=== PATIENT | male | born 1970 | race Caucasian/White ===

== ENCOUNTER 2019-08-08 11:38 | Emergency (ER) | payer MEDICAID, SELFPAY ==
[2019-08-08 11:40] VITALS: BP 194/120; PULSE 76; RESP 16; TEMP 36.7; O2SAT 95; BMI 44.1
--- NOTE | 2019-08-08 11:51 | ED_ITS ---
Entered by Sean Centeno, acting as scribe for Jerry Bradford DO HPI - SOB/Dyspnea General: Chief Complaint: Shortness of Breath/Dyspnea Stated Complaint: water retention Time Seen by Provider: 08/08/19 12:05 History of Present Illness: HPI Narrative: 49 yo male presents with shortness of breath. Pt states that he noticed that he is retaining fluid. pt states that he has CHF. Pt states that he has been short of breath for a week. Pt states that he has fluid retaining in his scrotum. Pt denies chest pain. Pt states that he called his PCPs office and she isn't there on Fridays, he came here instead. MD elicited complaint: shortness of breath Pertinent past history: congestive heart failure Onset (ago): week(s) (1 week) Severity: moderate Exacerbating factors: exertion Known history of: congestive heart failure Associated symptoms: Deny abdominal pain, chest pain, dizziness, extremity pain, fever(s), nausea, orthopnea, palpitations, polydipsia, polyuria, syncope or vomiting Review of Systems Const: Denies: fever, chills, body aches, fatigue, malaise or night sweats Eyes: Denies: change in vision or blurry vision ENMT: Denies: throat pain, oral sores/lesions, dental pain, nasal discharge or nasal congestion Card: Reports: edema and shortness of breath on exertion; Denies: chest pain, palpitations, irregular heart rhythm, syncope, shortness of breath when lying down or leg pain with exertion Resp: Denies: shortness of breath, productive cough, non-productive cough or wheezing GI: Denies: abdominal pain, nausea, vomiting, vomiting blood, coffee grounds in vomit, difficulty swallowing, heartburn/indigestion, diarrhea, constipation, cramping, blood in stool or black tarry stool : Reports: scrotal swelling; Denies: flank pain, difficulty urinating, painful urination, urinary frequency, urinary urgency, urinary incontinence or blood in urine Musc: Denies: neck pain, back pain, extremity pain, extremity swelling, joint pain or joint swelling Skin/Breast: Denies: rash, itching or redness Neuro: Denies: headache, numbness in extremities, weakness in extremities, changes in sensation, lack of coordination, difficulty walking, frequent falls, dizziness, vertigo or confusion Psych: Denies: anxiety, depression, loss of interest, visual hallucinations, auditory hallucinations, suicidal ideation or homicidal ideation Endo: Denies: excessive urination, excessive thirst, tired all the time or cold intolerance Ramy/Lymph: Denies: easy bruising, easy bleeding, petechiae, enlarged lymph nodes or tender lymph nodes PFSH ED PFSH: Statuses (acute, chronic, etc) shown below reflect problem list status as previously entered and may not be historically accurate Medical History Cancer (Acute) Cataract (lens) fragments in eye following cataract surgery, bilateral (Acute) Congestive cardiac failure (Acute) Diabetes (Acute) Neuropathy (Acute) Surgical History H/O partial nephrectomy (Acute) bilateral Family History Father Diabetes Mother Diabetes Grandfather Diabetes Cancer Other Hyperlipidemia Social History Smoking and tobacco status: never smoked Alcohol intake: current Alcohol intake frequency: holidays/special occasions only Physical Exam Const: COMMON NORMALS: oriented x3 and alert GENERAL APPEARANCE: cooperative, comfortable, well kempt and well developed NUTRITIONAL APPEARANCE: obese ORIENTATION/CONSCIOUSNESS: Yes awake, Yes oriented to person and Yes oriented to place HENMT: COMMON NORMALS: normocephalic, head/scalp atraumatic, EAC's normal, TM's normal bilaterally, external nose normal, moist oral mucous membranes and oropharynx normal HEAD & SCALP: normocephalic and atraumatic NOSE: external nose normal EXTERNAL AUDITORY CANAL: EAC's normal TYMPANIC MEMBRANE: TM's normal bilaterally MOUTH: oral and palatal mucosa normal, lip normal and tongue normal THROAT: posterior oropharynx normal and tonsils normal Eye: COMMON NORMALS: PERRL, EOMs intact bilaterally, conjunctivae normal and no scleral icterus CONJUNCTIVA: Yes conjunctivae normal PUPIL: Yes PERRL Neck/C-Spine: COMMON NORMALS: full ROM, no lymphadenopathy, supple, no meningeal signs and thyroid normal THYROID: thyroid normal and asymmetrical Lymph: LYMPHATIC: no lymphadenopathy noted Resp: COMMON NORMALS: normal respiratory effort, no retractions, no use of accessory muscles and clear to auscultation bilaterally AUSCULTATION: clear to auscultation bilaterally Cardio: COMMON NORMALS: regular rate and regular rhythm RATE: regular rate RHYTHM: regular rhythm HEART SOUNDS: no murmurs GI: COMMON NORMALS: normal to inspection, nondistended, normoactive bowel sounds, soft to palpation and no hepatosplenomegaly PALPATION: Yes soft and Yes no hepatosplenomegaly : COMMON NORMALS: Yes no CVA tenderness BLADDER/KIDNEY EXAM: Yes no CVA tenderness Back/Pelvis: COMMON NORMALS: no CVA tenderness LUMBAR SPINE/LOWER BACK: Yes normal to inspection Extremity: COMMON NORMALS: no clubbing, cyanosis or edema and no calf tenderness GENERAL: Yes edema (bilateral, mild anasarca of the lower portion of the panus) Neuro: COMMON NORMALS: oriented x3 SENSORIUM/ORIENTATION: Yes alert, Yes oriented to person and Yes oriented to place MENINGEAL SIGNS: Yes no meningeal signs Psych: APPEARANCE: Yes well kempt Skin: COMMON NORMALS: no rashes or lesions noted and skin turgor normal GENERAL SKIN EXAM: no rashes or lesions noted and turgor normal Course ED course: She is having no chest pain is not really not having any orthopnea either he does have pretty significant lower extremity edema extending up to the pannus. He is on diuretics the chest x-ray is not showing increased pulmonary vasculature. We will have him double up on his diuretics and his potassium for the next 3 days follow-up with his primary care doctor if worsens or change return Vital Signs: Vital signs: Vital Signs Temperature 98.1 F 08/08/19 11:40 Pulse Rate 77 08/08/19 14:11 Respiratory Rate 17 08/08/19 14:11 Blood Pressure 157/89 08/08/19 14:11 Pulse Oximetry 95 08/08/19 14:11 MDM - SOB/Dyspnea Lab Data: Labs: Lab Results 08/08/19 08/08/19 Range/Units 12:00 12:00 WBC 8.3 (4.0-10.0) 10^3/ uL RBC 5.18 (4.1-5.3) 10^6/u L Hgb 14.0 (11.7-16.6) g/dL Hct 43.5 (42.0-52.0) % MCV 84.0 (80-94) fL MCH 27.0 L (28.0-34.0) pg MCHC 32.2 (30.0-36.0) g/dL RDW 12.3 (12.1-15.1) % Plt Count 251 (130-400) 10^3/c mm MPV 11.6 H (7.4-10.4) fL Neut % (Auto) 69.8 % Lymph % (Auto) 18.3 % Elbert % (Auto) 7.1 % Eos % (Auto) 3.8 % Baso % (Auto) 0.5 % Neut # (Auto) 5.8 (1.8-7.7) 10^3/u L Lymph # (Auto) 1.5 (0.8-4.8) 10^3/u L Elbert # (Auto) 0.6 (0.2-0.9) 10^3/u L Eos # (Auto) 0.3 (0.0-0.8) 10^3/u L Baso # (Auto) 0.0 (0.0-0.1) 10^3/u L Nucleated RBC % (a uto) 0 % Nucleated RBCs # 0.0 /100WBC Sodium 133 L (136-145) mmol/L Potassium 3.9 (3.5-5.1) mmol/L Chloride 95 L (98-107) mmol/L Carbon Dioxide 29 (22-29) mmol/L Anion Gap 12.9 (5-19) BUN 46 H (6-20) mg/dL Creatinine 1.6 H (0.7-1.2) mg/dL GFR Calculation 46.2 L (90-130) mL/min Glucose 288 H (74-109) mg/dL Calcium 9.0 (8.6-10.0) mg/Dl Total Bilirubin 0.2 (0.15-1.2) mg/dL AST 27 (0-40) U/L ALT 29 (0-41) U/L Alkaline Phosphata se 61 (40-130) IU/L Total Protein 6.1 L (6.6-8.7) g/dL Albumin 2.8 L (3.5-5.2) g/dL Globulin 3.3 (1.3-4.6) g/dL Imaging Data^: CXR: Radiologist's impression: Patient: Akil Velasco MR#: [id number] : 1970 Acct:[id number] Age/Sex: 49 / M ADM Date: 08/08/19 Loc: ER Attending Dr: Ordering Physician: Jerry Bradford DO Date of Service: 08/08/19 Procedure(s): XR chest 1V portable [id number] Accession Number(s): [id number] Report Number: [id number] WS: [id number] CHEST XRAY TECHNIQUE: Portable chest. CLINICAL INFORMATION: dyspnea COMPARISON: FINDINGS: Shallow inspiration. Heart: Cardiomegaly. Lungs: Lungs are clear. No consolidation or pleural effusion. Bones: Normal visualized bony structures. XR/XR chest 1V portable [id number] IMPRESSION: Cardiomegaly. Shallow inspiration. No acute pulmonary infiltrates. Dictated By: Osmel Ashraf MD Signed By: Osmel Ashraf MD Signed Date/Time:08/08/191250 DD/ 125 Discharge Plan Discharge Patient Disposition: Home, Self-Care Clinical Impression: Edema Qualifiers: Edema type: generalized Qualified Code(s): R60.1 - Generalized edema Condition: Stable Prescriptions: No Action Lantus Solostar U-100 Insulin 100 unit/mL (3 mL) insulin pen 50 unit SUBCUT ONCE RF: 0 carvedilol 25 mg tablet 25 mg PO BID RF: 0 Novolog PenFill U-100 Insulin 100 unit/mL cartridge 5 unit SUBCUT TID PRN (Reason: Hyperglycemia) RF: 0 losartan 100 mg tablet 100 mg PO ONCE RF: 0 citalopram [Celexa] 40 mg tablet 40 mg PO ONCE RF: 0 gabapentin 600 mg tablet 600 mg PO BID RF: 0 atorvastatin 80 mg tablet 80 mg PO ONCE RF: 0 furosemide 40 mg tablet 40 mg PO BID RF: 0 cephalexin 500 mg capsule 500 mg PO BID 7 Days Qty: 14 RF: 0 aspirin 81 mg Tablet,Delayed Release (Dr/Ec) 81 mg PO DAILY RF: 0 multivitamin Capsule 1 cap PO DAILY RF: 0 Referrals: Sulma Wetzel MD [Primary Care Provider] - 4-7 days Discharge Diet: Low Salt Discharge Activity: Increase activity as tolerated Activity Restrictions/Additional Instructions: Increase your Lasix to 80 mg twice daily for the next 3 days. You should also double your potassium supplement for the next 3 days. After 3 days resume previously prescribed doses and follow-up with Dr. Hernández. Discharge Date/Time: 08/08/19 14:17 Coding Level of Care Code ED Intelligence Support Officer for Chg Fwd Exam Problem Focused The documentation recorded by the Jacobo guillory Kialy, accurately reflects the service I personally performed and the decisions made by , Jerry Bradford, Aug 08, 2019 11:38
--- NOTE | 2019-08-08 12:23 | XR_ITS ---
WS: [id number] CHEST XRAY TECHNIQUE: Portable chest. CLINICAL INFORMATION: dyspnea COMPARISON: 019 FINDINGS: Shallow inspiration. Heart: Cardiomegaly. Lungs: Lungs are clear. No consolidation or pleural effusion. Bones: Normal visualized bony structures. XR/XR chest 1V portable [id number] IMPRESSION: Cardiomegaly. Shallow inspiration. No acute pulmonary infiltrates.
[2019-08-08 12:38] LABS: Basophils % 0.5 %; Eosinophils # 0.3 10^3/uL (0.0-0.8); Eosinophils % 3.8 %; Hematocrit 43.5 % (42.0-52.0); Lymphocytes # 1.5 10^3/uL (0.8-4.8); Lymphocytes % 18.3 %; Mean Corpuscular HGB Conc 32.2 g/dL (30.0-36.0); Mean Platelet Volume 11.6 fL (7.4-10.4); Monocytes # 0.6 10^3/uL (0.2-0.9); Monocytes % 7.1 %; Neutrophils # 5.8 10^3/uL (1.8-7.7); Neutrophils % 69.8 %; Nucleated Red Blood Cells % 0 %; Platelet Count 251 10^3/cmm (130-400); Red Blood Count 5.18 10^6/uL (4.1-5.3); Red Cell Distribution Width 12.3 % (12.1-15.1); White Blood Count 8.3 10^3/uL (4.0-10.0)
[2019-08-08] MEDS: FUROsemide 10 mg/mL SDV 10mL 60 MG IVP (12:39)
[2019-08-08] MEDS: ipratropium-albuterol 3 mL Neb INHALATION (12:40)
[2019-08-08 12:43] VITALS: PULSE 78; RESP 16; O2SAT 91
[2019-08-08 12:44] LABS: Alanine Aminotransferase 29 U/L (0-41); Albumin Level 2.8 g/dL (3.5-5.2); Alkaline Phosphatase 61 IU/L (40-130); Anion Gap 12.9 (5-19); Aspartate Amino Transferase 27 U/L (0-40); Blood Urea Nitrogen 46 mg/dL (6-20); Carbon Dioxide 29 mmol/L (22-29); Chloride 95 mmol/L (98-107); Globulin 3.3 g/dL (1.3-4.6); Glomerular Filtration Rate 46.2 mL/min (90-130); Glucose 288 mg/dL (74-109); Potassium 3.9 mmol/L (3.5-5.1); Sodium 133 mmol/L (136-145); Total Bilirubin 0.2 mg/dL (0.15-1.2); Total Protein 6.1 g/dL (6.6-8.7)
[2019-08-08 12:45] VITALS: PULSE 81
[2019-08-08 14:11] VITALS: BP 157/89; PULSE 77; RESP 17; O2SAT 95
== END 2019-08-08 14:17 | disposition home or self-care (01) ==
PROVIDERS: Emergency Provider Family Medicine; PCP Internal Medicine
DX: R60.1 Generalized edema (principal); Z79.4 Long term (current) use of insulin; Z79.82 Long term (current) use of aspirin; E11.40 Type 2 diabetes mellitus with diabetic neuropathy, unspecified; Z90.5 Acquired absence of kidney; I50.9 Heart failure, unspecified
CPT/HCPCS: 71045; 80053; 85025; 94640; 96374; 96375; 99282; J1940

== ENCOUNTER 2019-08-11 11:26 | Emergency (ER) | payer MEDICAID, SELFPAY | END 2019-08-11 16:24 | disposition home or self-care (01) | LOC: ER 11-13 12:55 | PROVIDERS: Emergency Provider Family Medicine; Family Provider Internal Medicine; PCP Internal Medicine | DX: I50.9 Heart failure, unspecified (principal); R60.1 Generalized edema; Z79.4 Long term (current) use of insulin; Z79.82 Long term (current) use of aspirin; E11.40 Type 2 diabetes mellitus with diabetic neuropathy, unspecified; Z90.5 Acquired absence of kidney; Z23 Encounter for immunization | CPT/HCPCS: 12345; 36415; 36416; 51702; 71046; 76770; 76857; 80048; 80053; 80061; 80306; 81003; 82009; 82436; 82570; 82962; 83036; 83735; 83880; 84133; 84300; 84484; 85025; 87070; 87086; 87205; 90732; 93005; 93306; 94664; 96372; 96374; 96375; 99284; 99285; J1644; J1815; J1940; J2270 ==

== ENCOUNTER 2019-08-11 11:26 | Inpatient (IN) | payer MEDICAID, SELFPAY ==
[2019-08-11] VITALS (11 sets, daily range): BP systolic 178–215; BP diastolic 85–120; PULSE 76–85; RESP 18–21; TEMP 36.4–36.7; O2SAT 79–98; BMI 45.8
--- NOTE | 2019-08-11 11:56 | ED_ITS ---
Entered by Claudine Robles, acting as scribe for Colton Waller MD, [facility] [place] - General Adult General: Chief complaint: General Medical Stated complaint: Chest pain Time Seen by Provider: 08/11/19 11:54 Source: patient Mode of arrival: ambulatory Limitations: no limitations History of Present Illness: HPI narrative: 49 yo m came to the er pov for chest discomfort. Onset was 2 weeks ago. Pt states that he also has renal issues, Pt states that he has been retaining fluid. Pt said that there has been alot of swelling. Pt states that he has doubled meds and has not been able to urinate as much as he should. Patient with a history of CHF and is on 40 mg of lasix and 2 mg of bumex daily. About 4 days ago he was seen in the ED and advised to double the dose of his diuretics but that has not helped with the swelling. He has generalized swelling that is worsening. Also has shortness of breath and dyspnea on exertion. He may have some orthopnea. complaint: chest discomfort Onset (ago): week(s) (2 weeks ago) Location: upper extremity and lower extremity Radiation: non-radiation Severity: mild Pain Consistency: intermittent Relieving factors: none Exacerbating factors: none Associated symptoms: Reports dyspnea Treatments prior to arrival: none Review of Systems General: Reports: 10 or more systems reviewed and unremarkable except in HPI and below Card: Reports: swelling of feet/ankles and shortness of breath on exertion Resp: Reports: shortness of breath : Reports: other (Scrotal swelling) PFS ED PFSH: Statuses (acute, chronic, etc) shown below reflect problem list status as previously entered and may not be historically accurate Medical History Cancer (Acute) Cataract (lens) fragments in eye following cataract surgery, bilateral (Acute) Congestive cardiac failure (Acute) Diabetes (Acute) Neuropathy (Acute) Surgical History H/O partial nephrectomy (Acute) bilateral Family History Father Diabetes Mother Diabetes Grandfather Diabetes Cancer Other Hyperlipidemia Social History Smoking and tobacco status: never smoked Alcohol intake: current Alcohol intake frequency: holidays/special occasions only Physical Exam Const: COMMON NORMALS: no apparent distress, average body habitus, oriented x3, no limitations, healthy appearing, alert and well nourished HENMT: COMMON NORMALS: external ears normal EXTERNAL EAR: Yes external ears normal Eye: COMMON NORMALS: PERRL, EOMs intact bilaterally, conjunctivae normal and no scleral icterus CONJUNCTIVA: Yes conjunctivae normal PUPIL: Yes PERRL Neck/C-Spine: COMMON NORMALS: full ROM, supple, no meningeal signs, no JVD and no carotid bruits Chest: COMMONS NORMALS: inspection of chest normal and palpation of chest normal Resp: COMMON NORMALS: normal respiratory effort, no retractions and no use of accessory muscles AUSCULTATION: rales bilateral and localized (bases) Cardio: COMMON NORMALS: no JVD, regular rate, regular rhythm, S1 normal heart sound, S2 normal heart sound, no gallops, no clicks, no murmurs, no rub and peripheral pulses 2+ throughout RATE: regular rate RHYTHM: regular rhythm HEART SOUNDS: S1 normal and S2 normal PERIPHERAL PULSES: pulses 2+ throughout GI: COMMON NORMALS: normal to inspection, nondistended, normoactive bowel sounds, soft to palpation, non-tender, no hepatosplenomegaly, no masses and no bruits PALPATION: Yes soft and Yes no hepatosplenomegaly : COMMON NORMALS: Yes no CVA tenderness BLADDER/KIDNEY EXAM: Yes no CVA tenderness Back/Pelvis: COMMON NORMALS: no CVA tenderness Extremity: COMMON NORMALS: full ROM, normal capillary refill, no joint enlargement and no calf tenderness GENERAL: Yes edema (3+ bilateral legs and ankles) LEFT LOWER EXTREMITY: Yes lower leg OTHER: swelling Neuro: COMMON NORMALS: oriented x3 SENSORIUM/ORIENTATION: Yes alert MENINGEAL SIGNS: Yes no meningeal signs Skin: COMMON NORMALS: no rashes or lesions noted, no wounds, skin turgor normal, no jaundice, no petechiae and no mottling GENERAL SKIN EXAM: no rashes or lesions noted and turgor normal Course Consultations: Consultation #1: Dr. Bonner. He kindly accepted the patient to his service. Time: 15:45 Vital Signs: Vital signs: Vital Signs Temperature 97.6 F 08/11/19 11:32 Pulse Rate 85 08/11/19 11:32 Respiratory Rate 18 08/11/19 11:32 Blood Pressure 215/120 08/11/19 11:32 Pulse Oximetry 93 08/11/19 11:32 MDM - General Adult MDM Narrative: Medical decision making narrative: 49-year-old gentleman with a history of congestive heart failure who has worsening edema, really anasarca, and shortness of breath. He was seen in this facility 3 to 4 days ago for the same thing but he has not shown much improvement. In fact he has worsening symptoms according to the patient. Last echocardiogram done was at least 1 year ago according to the patient. The patient will be admitted overnight for intravenous diuretics. The patient voiced understanding and is in agreement with the plan. Lab Data: Labs: Lab Results 08/11/19 08/11/19 08/11/19 Range/Units 12:15 12:15 12:15 WBC 8.0 (4.0-10.0) 10^3/ uL RBC 5.08 (4.1-5.3) 10^6/u L Hgb 13.8 (11.7-16.6) g/dL Hct 43.0 (42.0-52.0) % MCV 84.6 (80-94) fL MCH 27.2 L (28.0-34.0) pg MCHC 32.1 (30.0-36.0) g/dL RDW 12.4 (12.1-15.1) % Plt Count 246 (130-400) 10^3/c mm MPV 11.2 H (7.4-10.4) fL Neut % (Auto) 70.3 % Lymph % (Auto) 18.2 % Hart % (Auto) 6.0 % Eos % (Auto) 4.1 % Baso % (Auto) 0.8 % Neut # (Auto) 5.6 (1.8-7.7) 10^3/u L Lymph # (Auto) 1.5 (0.8-4.8) 10^3/u L Hart # (Auto) 0.5 (0.2-0.9) 10^3/u L Eos # (Auto) 0.3 (0.0-0.8) 10^3/u L Baso # (Auto) 0.1 (0.0-0.1) 10^3/u L Nucleated RBC % (a uto) 0 % Nucleated RBCs # 0.0 /100WBC Sodium 132 L (136-145) mmol/L Potassium 4.3 (3.5-5.1) mmol/L Chloride 90 L (98-107) mmol/L Carbon Dioxide 31 H (22-29) mmol/L Anion Gap 15.3 (5-19) BUN 48 H (6-20) mg/dL Creatinine 1.9 H (0.7-1.2) mg/dL GFR Calculation 37.9 L (90-130) mL/min Glucose 570 H* (74-109) mg/dL Calcium 9.2 (8.6-10.0) mg/Dl Total Bilirubin 0.2 (0.15-1.2) mg/dL AST 29 (0-40) U/L ALT 33 (0-41) U/L Alkaline Phosphata se 71 (40-130) IU/L Troponin T Baselin e 108 H* (0-15) ng/mL Troponin T 120 Min alutiiq (0-15) ng/mL Delta Troponin T (0-10) ABS# NT-Pro-B Natriuret Pep 3431 H (0-125) pg/mL Total Protein 6.4 L (6.6-8.7) g/dL Albumin 2.9 L (3.5-5.2) g/dL Globulin 3.5 (1.3-4.6) g/dL Urine Color (Yellow) Urine Appearance (CLEAR) Urine pH (5-7) Ur Specific Gravit y (1.005-1.030) Urine Protein (Negative) Urine Glucose (UA) (Normal) Urine Ketones (Negative) Urine Occult Blood (Negative) Urine Nitrate (Negative) Urine Bilirubin (NEGATIVE) Urine Urobilinogen (Negative) mg/dL Ur Leukocyte Leisa ase (Negative) Urine RBC (0-2) /hpf Urine WBC (0-5) /hpf Ur Squamous Epith Cells (0-5) Ur Transition Epit h Cell Ur Renal Epithelia l Cell Calcium Oxalate Cr ystal Uric Acid Crystals Triple Phos Denisa ls Other Crystals Amorphous Sediment Urine Bacteria (NONE) Hyaline Casts Fine Granular Cast s Coarse Granular Ca sts RBC Casts Other Casts Urine Mucus Urine Trichomonas Urine Yeast Urine Sperm Ur Oval Fat Bodies 08/11/19 08/11/19 Range/Units 13:45 14:06 WBC (4.0-10.0) 10^3/ uL RBC (4.1-5.3) 10^6/u L Hgb (11.7-16.6) g/dL Hct (42.0-52.0) % MCV (80-94) fL MCH (28.0-34.0) pg MCHC (30.0-36.0) g/dL RDW (12.1-15.1) % Plt Count (130-400) 10^3/c mm MPV (7.4-10.4) fL Neut % (Auto) % Lymph % (Auto) % Hart % (Auto) % Eos % (Auto) % Baso % (Auto) % Neut # (Auto) (1.8-7.7) 10^3/u L Lymph # (Auto) (0.8-4.8) 10^3/u L Hart # (Auto) (0.2-0.9) 10^3/u L Eos # (Auto) (0.0-0.8) 10^3/u L Baso # (Auto) (0.0-0.1) 10^3/u L Nucleated RBC % (a uto) % Nucleated RBCs # /100WBC Sodium (136-145) mmol/L Potassium (3.5-5.1) mmol/L Chloride (98-107) mmol/L Carbon Dioxide (22-29) mmol/L Anion Gap (5-19) BUN (6-20) mg/dL Creatinine (0.7-1.2) mg/dL GFR Calculation (90-130) mL/min Glucose (74-109) mg/dL Calcium (8.6-10.0) mg/Dl Total Bilirubin (0.15-1.2) mg/dL AST (0-40) U/L ALT (0-41) U/L Alkaline Phosphata se (40-130) IU/L Troponin T Baselin e (0-15) ng/mL Troponin T 120 Min alutiiq 109.90 H (0-15) ng/mL Delta Troponin T 1.90 (0-10) ABS# NT-Pro-B Natriuret Pep (0-125) pg/mL Total Protein (6.6-8.7) g/dL Albumin (3.5-5.2) g/dL Globulin (1.3-4.6) g/dL Urine Color Straw (Yellow) Urine Appearance Clear (CLEAR) Urine pH 6.0 (5-7) Ur Specific Gravit y 1.010 (1.005-1.030) Urine Protein 3+ H (Negative) Urine Glucose (UA) 4+ H (Normal) Urine Ketones Negative (Negative) Urine Occult Blood 2+ H (Negative) Urine Nitrate Negative (Negative) Urine Bilirubin Neg (NEGATIVE) Urine Urobilinogen Norm (Negative) mg/dL Ur Leukocyte Leisa ase Negative (Negative) Urine RBC 10-15 H (0-2) /hpf Urine WBC None (0-5) /hpf Ur Squamous Epith Cells 0-4 H (0-5) Ur Transition Epit h Cell Cancelled Ur Renal Epithelia l Cell Cancelled Calcium Oxalate Cr ystal Cancelled Uric Acid Crystals Cancelled Triple Phos Denisa ls Cancelled Other Crystals Cancelled Amorphous Sediment Not Reportable Urine Bacteria Trace (NONE) Hyaline Casts Cancelled Fine Granular Cast s Cancelled Coarse Granular Ca sts Cancelled RBC Casts Cancelled Other Casts Cancelled Urine Mucus Trace Urine Trichomonas Cancelled Urine Yeast Cancelled Urine Sperm Cancelled Ur Oval Fat Bodies Cancelled EKG Data^: EKG 1: Attestation: I personally reviewed and interpreted this EKG as follows: EKG interpretation date: 08/11/19 EKG interpretation time: 11:44 Interpretation: Sinus rhythm. Heart rate 80. No ST changes. Computer generated interpretation: Chest X-Ray 08/11/19 12:07 IMPRESSION: 1. Mild pulmonary vascular congestion. 2. Poor inspiration. EKG 2: Attestation: I personally reviewed and interpreted this EKG as follows: EKG interpretation date: 08/11/19 EKG interpretation time: 14:37 Prior EKG tracings: available for review Interpretation: Unchanged from EKG earlier today. Computer generated interpretation: Chest X-Ray 08/11/19 12:07 IMPRESSION: 1. Mild pulmonary vascular congestion. 2. Poor inspiration. Discharge Plan Discharge Patient Disposition: Placed in Observation Clinical Impression: CHF exacerbation, Anasarca Condition: Stable Prescriptions: No Action Lantus Solostar U-100 Insulin 100 unit/mL (3 mL) insulin pen 60 unit SUBCUT DAILY RF: 0 carvedilol 25 mg tablet 25 mg PO BID RF: 0 Novolog PenFill U-100 Insulin 100 unit/mL cartridge See Rx Instructions .ROUTE .COMPLEX PRN (Reason: Hyperglycemia) RF: 0 losartan 100 mg tablet 100 mg PO DAILY RF: 0 citalopram [Celexa] 40 mg tablet 40 mg PO DAILY RF: 0 gabapentin 600 mg tablet See Rx Instructions .ROUTE .COMPLEX RF: 0 atorvastatin 80 mg tablet 80 mg PO DAILY RF: 0 furosemide 40 mg tablet 40 mg PO BID RF: 0 cephalexin 500 mg capsule 500 mg PO BID 7 Days Qty: 14 RF: 0 multivitamin Capsule 1 cap PO DAILY RF: 0 bumetanide 2 mg Tablet 2 mg PO DAILY RF: 0 aspirin 325 mg Tablet 325 mg PO DAILY RF: 0 Zantac 150 mg Tablet 150 mg PO DAILY RF: 0 Tricor 145 mg Tablet 145 mg PO DAILY RF: 0 potassium gluconate 550 mg (90 mg) Tablet 1,100 mg PO DAILY RF: 0 Referrals: Sulma Wetzel MD [Primary Care Provider] - Coding Level of Care Code ED Vice President Global Advertising Sales for Chg Fwd Exam Problem Focused The documentation recorded by the Travis guillory Stephanie Lyn, accurately reflects the service I personally performed and the decisions made by Christin mehta Adegoke I, MD, [facility] [place]
--- NOTE | 2019-08-11 12:07 | XR_ITS ---
WS: [id number] CHEST 2 VIEWS HISTORY: SOB, CHF COMPARISON: 08/08/2019 Lungs: Lung volumes are decreased. Moderate pulmonary vascular congestion. No pneumonia identified. Cardiac size: Mildly enlarged cardiac silhouette. Mediastinum/Aorta: Mild atherosclerosis aorta. Bones: Normal. XR/XR chest 2V* [id number] IMPRESSION: 1. Mild pulmonary vascular congestion. 2. Poor inspiration.
[2019-08-11 12:25] LABS: Basophils # 0.1 10^3/uL (0.0-0.1); Basophils % 0.8 %; Eosinophils # 0.3 10^3/uL (0.0-0.8); Eosinophils % 4.1 %; Hemoglobin 13.8 g/dL (11.7-16.6); Lymphocytes # 1.5 10^3/uL (0.8-4.8); Lymphocytes % 18.2 %; Mean Corpuscular HGB Conc 32.1 g/dL (30.0-36.0); Mean Corpuscular Hemoglobin 27.2 pg (28.0-34.0); Mean Corpuscular Volume 84.6 fL (80-94); Mean Platelet Volume 11.2 fL (7.4-10.4); Monocytes # 0.5 10^3/uL (0.2-0.9); Neutrophils # 5.6 10^3/uL (1.8-7.7); Neutrophils % 70.3 %; Nucleated Red Blood Cells % 0 %; Platelet Count 246 10^3/cmm (130-400); Red Blood Count 5.08 10^6/uL (4.1-5.3); Red Cell Distribution Width 12.4 % (12.1-15.1)
--- NOTE | 2019-08-11 12:33 | ECG_ITS ---
Measurements Intervals [place] Rate: 80 P: 48 UT: 173 QRS: -7 QRSD: 103 T: 108 QT: 392 QTc: 454 SINUS RHYTHM ABNORMAL QRS-T ANGLE [QRS-T AXIS DIFFERENCE > 60] Compared to ECG 01/14/2019 19:19:10 Atrial abnormality no longer present Electronically Signed On 08-11-2019 19:27:26 CHILI POWDER MIXER by Shirin Kendrick M.D. [id number]
[2019-08-11 12:51] LABS: Alanine Aminotransferase 33 U/L (0-41); Albumin Level 2.9 g/dL (3.5-5.2); Alkaline Phosphatase 71 IU/L (40-130); Anion Gap 15.3 (5-19); Blood Urea Nitrogen 48 mg/dL (6-20); Calcium 9.2 mg/Dl (8.6-10.0); Carbon Dioxide 31 mmol/L (22-29); Chloride 90 mmol/L (98-107); Globulin 3.5 g/dL (1.3-4.6); Glomerular Filtration Rate 37.9 mL/min (90-130); NT Pro B Type Natriuretic Pept 3431 pg/mL (0-125); Potassium 4.3 mmol/L (3.5-5.1); Sodium 132 mmol/L (136-145); Total Bilirubin 0.2 mg/dL (0.15-1.2); Total Protein 6.4 g/dL (6.6-8.7)
[2019-08-11 13:15] LABS: Glucose 570 mg/dL (74-109)
[2019-08-11 13:18] LABS: Aspartate Amino Transferase 29 U/L (0-40)
[2019-08-11 13:24] LABS: Troponin(5th) Baseline 108 ng/mL (0-15)
--- NOTE | 2019-08-11 13:28 | PC.NURSE ---
Dr. Waller notified of critical Glucose of 570 and troponin 108.
[2019-08-11 14:08] LABS: Add Urine Microscopic? YES; Bilirubin Urine Neg (NEGATIVE); Blood Urine 2+ (Negative); Glucose Urine UA 4+ (Normal); Ketones Urine Negative (Negative); Leukocyte Esterase Urine Negative (Negative); Nitrate Urine Negative (Negative); Protein Urine 3+ (Negative); Urine Appearance Clear (CLEAR); Urine Color Straw (Yellow); Urobilinogen Urine Norm (Negative)
--- NOTE | 2019-08-11 14:30 | PC.NURSE ---
Dr. Waller notified of critical troponin 109.9 delta 1.9
--- NOTE | 2019-08-11 14:33 | ECG_ITS ---
Measurements Intervals [place] Rate: 83 P: 56 PA: 165 QRS: 16 QRSD: 108 T: 111 QT: 391 QTc: 461 SINUS RHYTHM POSSIBLE LEFT ATRIAL ENLARGEMENT [-0.1mV P WAVE IN V1/V2] ABNORMAL QRS-T ANGLE [QRS-T AXIS DIFFERENCE > 60] Compared to ECG 01/14/2019 19:19:10 No significant changes Electronically Signed On 08-11-2019 19:35:13 INTERNAL GRINDING MACHINE OPERATOR by Shirin Kendrick M.D. [id number]
[2019-08-11 14:47] LABS: Squamous Epithelial Cell Urine 0-4 (0-5)
[2019-08-11 14:48] LABS: Add Urine Culture? Yes; Bacteria Urine TRACE; Mucus Urine TRACE
[2019-08-11] MEDS: FUROsemide 10 mg/mL SDV 10mL 80 MG IVP (15:23)
--- NOTE | 2019-08-11 16:57 | USCV_ITS ---
Akil Velasco Age: 49 Gender: M : 1970 Exam Date: 08/11/2019 17:24 Ordering Phys: Edil Bonner MD Technologist: Rossi Hwang Exam Location: [facility] Indication: CHEST PAIN BP: / HR: 82 Rhythm: Sinus Technical Quality: Poor because of body habitus MEASUREMENTS (Male / Female) Normal Values 2D ECHO LV Diastolic Diameter PLAX 5.3 cm 4.2 - 5.9 / 3.9 - 5.3 cm LV Systolic Diameter PLAX 4.6 cm LV Chamber Size 3.4 cm IVS Diastolic Thickness 2.4 cm 0.6 - 1.0 / 0.6 - 0.9 cm IVS Systolic Thickness 1.9 cm LVPW Diastolic Thickness 1.9 cm 0.6 - 1.0 / 0.6 - 0.9 cm LVPW Systolic Thickness 2.5 cm RV Chamber Size 2.9 cm LVOT Diameter 2.0 cm LV Ejection Fraction 2D Teich 26.7 % LA Diameter 4.7 cm LA Width 3.0 cm LA Height 5.8 cm RA Width 3.0 cm RA Height 4.4 cm Aorta at Sinotubular Diameter 2.3 cm M-MODE LV Diastolic Diameter MM 4.6 cm 4.2 - 5.9 / 3.9 - 5.3 cm LV Systolic Diameter MM 3.0 cm LV Ejection Fraction MM Teich 64.7 % IVS Diastolic Thickness MM 1.2 cm 0.6 - 1.0 / 0.6 - 0.9 cm IVS Systolic Thickness MM 2.5 cm LVPW Diastolic Thickness MM 1.8 cm 0.6 - 1.0 / 0.6 - 0.9 cm LVPW Systolic Thickness MM 2.3 cm Aortic Annulus Diameter 3.6 cm LA Ao Ratio MM 1.3 MV E Point Septal Separation 0.7 cm DOPPLER AV Peak Velocity 114.0 cm/s LVOT Peak Velocity 72.0 cm/s AV Area Cont Eq vti 2.3 cm squared AV Area Cont Eq pk 2.1 cm squared MV Area PHT 4.5 cm squared Mitral E to A Ratio 1.2 MV E' Velocity 9.0 cm/s Mitral E to MV E' Ratio 11.1 Mitral E to LV E' Lateral Ratio 9.8 Mitral E to LV E' Septal Ratio 12.8 TR Peak Velocity 120.0 cm/s TR Peak Gradient 5.8 mmHg TV Peak E Velocity 56.0 cm/s Right Atrial Pressure 3.0 mmHg Pulmonary Artery Systolic Pressu 8.8 mmHg PV Peak Velocity 57.0 cm/s RV Acceleration Time 0.1 s RV Ejection Time 0.3 s RV AcT/ET 0.2 FINDINGS Left Ventricle Left ventricular cavity not well visualized. Probably mildly decreased left ventricular systolic function. This study is inadequate for estimation of regional wall motion abnormality. Right Ventricle Right ventricle not well visualized. Right Atrium Normal right atrial size. Left Atrium Left atrium not well visualized. Probably mildly increased left atrial size. Mitral Valve Mildly thickened mitral valve. Aortic Valve Mildly thickened trileaflet aortic valve. No aortic valve stenosis. Tricuspid Valve Tricuspid valve not well visualized. Pulmonic Valve Pulmonic valve not well visualized. Trace pulmonary valve regurgitation. Pericardium No pericardial effusion. Aorta Aorta not well visualized. CONCLUSIONS 1. This is a technically very difficult study. 2. Probably mildly decreased left ventricular systolic function. This study is inadequate for estimation of regional wall motion abnormality. 3. No prior similar studies to compare. 4. Repeat study with ultrasound enhancing agent is recommended. Rosie Ivey MD (Electronically Signed) Final Date: 12 August 2019 13:14 S
[2019-08-11 17:14] LABS: Ketone (Acetest) Serum Negative (Negative)
--- NOTE | 2019-08-11 17:26 | PM.HP ---
Providers/Chief Complaint Admitting Physician: Edil Bonner MD Primary Care Provider: Sulma Wetzel MD Chief Complaint: Chest pain History of Present Illness Akil Velasco is a 49 year old male noncompliant with past medical history of possible CHF of unknown type, possible CAD, hypertension, severely uncontrolled diabetes, CKD stage III, bilateral partial nephrectomy for some type of cancer. Patient states she was diagnosed of having 1 year ago at an outside facility but since then has lost follow-up because he lost his insurance. He states he has been started back on his oral diuretics for last 3 months. He states he continues to retain more fluid. At present he has bilateral leg swelling which has been increasing constantly for last 2 weeks leading to swelling going up to his groin and around the scrotum now to such an extent that it is difficult for him to walk. At present he is also complaining of having fluid around his belly. He denies of having any acute shortness of breath but does get short of breath on exertion and on lying down. Patient has been having mild orthopnea and PND as well. He denies of having any fever, chest pain, palpitations, nausea, vomiting, headache, dizziness. Patient came to the ER last week because of retention of fluid as well and was asked to double up his oral Lasix. Patient states doubling up of his medications have not helped him much. Review of Systems Const: Denies: fever, chills, body aches, change in appetite, malaise, night sweats, diaphoresis, change in sleep pattern, daytime sleepiness or snoring Eyes: Denies: change in vision, blurry vision, photophobia, eye discomfort or eye discharge ENMT: Denies: throat pain, enlarged tonsils, hoarseness, mouth pain, oral sores/lesions, dry mouth, tinnitus, nasal congestion or post nasal drip Card: Reports: shortness of breath on exertion, shortness of breath when lying down and leg pain with exertion; Denies: chest pain, palpitations, irregular heart rhythm, edema, swelling of feet/ankles, lightheadedness, syncope, pre-syncope or bluish discoloration of hands/feet Resp: Reports: shortness of breath; Denies: productive cough, non-productive cough, wheezing, stridor, pain on inspiration, change in phlegm color, coughing up blood or chest congestion GI: Denies: abdominal pain, nausea, vomiting, vomiting blood, coffee grounds in vomit, difficulty swallowing, heartburn/indigestion, diarrhea, constipation, bloating, cramping, change in bowel habits, painful bowel movements, blood in stool or black tarry stool : Reports: difficulty urinating; Denies: flank pain, painful urination, urinary frequency, urinary urgency, urinary hesitancy, urinary dribbling, difficulty starting urination, change in urine stream, nighttime urination or blood in urine Musc: Denies: neck pain, back pain, extremity pain, joint pain, joint swelling, redness, joint stiffness or limited range of motion Neuro: Denies: headache, numbness in extremities, weakness in extremities, changes in sensation, lack of coordination, difficulty walking, frequent falls, dizziness, vertigo, confusion, slurred speech, difficulty communicating thoughts or seizure-like activity Psych: Denies: anxiety, depression, mood swings, panic attacks, hopelessness or irritability Endo: Reports: excessive urination and excessive thirst; Denies: tired all the time, cold intolerance, excessive sweating, flushing or heat intolerance Ramy/Lymph: Denies: easy bruising or easy bleeding All/Imm: Denies: tongue swelling, facial swelling or acute wheezing Medications/Allergies Home Medications Medication Instructions Recorded Confirmed Last Taken Type Zantac 150 mg PO DAILY 08/11/19 08/11/19 08/10/19 History Allergies Allergy/AdvReac Type Severity Reaction Status Date / Time No Known Allergies Allergy Verified 08/11/19 11:39 PFSH Acute PFSH: Statuses (acute, chronic, etc) shown below reflect problem list status as previously entered and may not be historically accurate Medical History (Updated 08/16/19 @ 00:00 by ) Cancer (Acute) Cataract (lens) fragments in eye following cataract surgery, bilateral (Acute) CKD stage 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 (Acute) Congestive cardiac failure (Acute) Diabetes (Acute) Hypertension (Acute) Neuropathy (Acute) Non-ischemic cardiomyopathy (Acute) Surgical History H/O partial nephrectomy (Acute) bilateral Family History Father Diabetes Mother Diabetes Grandfather Diabetes Cancer Other Hyperlipidemia Social History Smoking and tobacco status: never smoked Alcohol intake: current Alcohol intake frequency: holidays/special occasions only Lives independently: Yes Household members: spouse Housing: House Vitals/I&O/Wt Last Vital Signs Temp 97.6 F 08/11/19 11:32 Pulse 85 08/11/19 17:01 Resp 18 08/11/19 17:01 BP 181/85 08/11/19 17:01 Pulse Ox 98 08/11/19 17:01 Weight last 48 hrs Weight 157.759 kg Physical Exam Narrative: EXAM NARRATIVE: General: No acute distress, AO x3 HEENT: PERRLA, pupils bilaterally equal and reactive Chest: Bilateral fine lower zone crackles, normal vesicular breath sounds CVS: S1-S2 regular, and systolic murmur in the apex, no tachycardia, no gallops, no rubs Abdomen: Soft, nontender, no organomegaly, bowel sounds present Neuro: No focal deficits, no facial deformity, AO x3, power 5/5 in all limbs Extremities: Bilateral 2+ pitting edema up to the thigh, scrotal swelling, subcutaneous swelling in the skin around the belly. Data : 08/15/19 10:41 08/15/19 10:41 A&P Assessment and plan (1) Anasarca: Status: Acute Code(s): R60.1 - Generalized edema (2) CHF exacerbation: Status: Acute Qualifiers: Heart failure type: unspecified Qualified Code(s): I50.9 - Heart failure, unspecified Code(s): I50.9 - Heart failure, unspecified (3) Hypertension: Status: Acute Code(s): I10 - Essential (primary) hypertension (4) CKD stage 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: Status: Acute Code(s): E11.22 - Type 2 diabetes mellitus with diabetic chronic kidney disease; N18.3 - Chronic kidney disease, stage 3 (moderate) (5) Uncontrolled diabetes mellitus: Status: Acute Code(s): E11.65 - Type 2 diabetes mellitus with hyperglycemia (6) Uvhtx-ou-xiphuol kidney injury: Status: Acute Code(s): N17.9 - Acute kidney failure, unspecified; N18.9 - Chronic kidney disease, unspecified Additional A&P Information Congestive heart failure of unknown type: Anasarca: Most likely patient has mixed type of congestive heart failure possibly due to ischemia and uncontrolled diabetes induced cardiomyopathy. proBNP more than 3000. 6 months ago was around 2800. At home patient is on Lasix 40 mg twice daily and Bumex 2 mg. Patient was given 80 mg IV Lasix in the ER. We will continue patient on 40 mg Lasix IV twice daily. Continue with Bumex at home dose. Daily weight Monitor intake and output. Echocardiogram as there is none in the system. Continue with carvedilol 25 mg twice daily. We will hold off on losartan for now in view of acute on chronic kidney injury. Patient would also be getting high-dose of diuresis right now. We will place in a Melgar catheter. Monitor intake and output. Acute on chronic kidney injury: Baseline creatinine seems to be around 1.66 months ago. At present 1.9. Most likely cardiorenal syndrome. We will check urine studies for urine creatinine, urine lite We will also do ultrasound of kidneys. Hold off on losartan as said above. Medications reconciled for nephrotoxic drugs. Uncontrolled diabetes: Check HbA1c. Continue on home dose of Lantus 60 units twice daily. Will start patient on high-dose insulin sliding scale. Most likely patient would need higher dose of Lantus as well. Cardiac carbohydrate consistent diet. Check stat serum ketones. Hypertension: We will continue on home dose of carvedilol. Holding off losartan for now. If blood pressure was higher than 150 can start the patient on hydralazine. Patient is not in acute shortness of breath so we will hold off on nitro for now. Troponin leak: Most likely in view of CHF and acute on chronic kidney injury with a creatinine of 1.9. We will continue to follow. No acute changes in the EKG. Full code Heparin 5000 SQ 12 Cardiac carb consistent diet. Attestations Medical Necessity Statement*: Needs admission most likely for less than 2 midnights for acute anasarca Time Spent in Patient Care: Greater than 35 minutes Coding Level of Care Code Acute Integration Software Engineer for [facility] Diagnoses Anasarca R60.1 CHF exacerbation I50.9 Heart failure type: unspecified Hypertension I10 CKD stage 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 E11.22; N18.3 Uncontrolled diabetes mellitus E11.65 Zedkz-mh-loknbut kidney injury N17.9; N18.9
--- NOTE | 2019-08-11 17:45 | US_ITS ---
WS: [id number] ULTRASOUND RENAL TECHNIQUE: Ultrasound examination of both kidneys. CLINICAL INFORMATION: acute on ckd COMPARISON: None. FINDINGS: RIGHT: Right kidney is normal in size and appearance. Echogenicity: Normal. Hydronephrosis: None. Perinephric fluid: None. Right kidney measures: 12.2 cm x 6.5 cm x 6.9 cm. LEFT: Left kidney is normal in size and appearance. Echogenicity: Normal. Hydronephrosis: None. Perinephric fluid: None. Left kidney measures: 12.3 cm x 7.0 cm x 6.8 cm. Normal visualized aorta. Normal bladder with Melgar US/US renal BI with bladder IMPRESSION: Normal renal ultrasound. Bladder with Melgar.
--- NOTE | 2019-08-11 18:33 | ECG_ITS ---
Measurements Intervals Atlas Rate: 85 P: 53 OK: 163 QRS: 15 QRSD: 106 T: 123 QT: 386 QTc: 460 SINUS RHYTHM POSSIBLE LEFT ATRIAL ENLARGEMENT [-0.1mV P WAVE IN V1/V2] ST-T wave abnormality in lateral leads Compared to ECG 08/11/2019 14:36:32 No significant changes Electronically Signed On 08-12-2019 13:44:35 DIRECTOR CONSTRUCTION SERVICES by Rosie Ivey M.D. [email or web address]
[2019-08-11 19:05] LABS: Troponin 5 6HR 104.2 ng/L (0-15); Troponin 5 6HR Delta -3.8 ng/L (0-12)
[2019-08-11] MEDS: FUROsemide 10 mg/mL SDV 4mL 40 MG IVP (20:22)
[2019-08-11] MEDS: carvedilol 25 mg Tablet PO (20:23)
[2019-08-11] MEDS: heparin 5,000 unit/mL INJ 1 mL 5000 UNIT SUBCUT (20:23)
[2019-08-11 20:40] LABS: Glucose Point of Care 485 mg/dL (70-110)
[2019-08-11] MEDS: insulin glargine 100 units/1 mL 60 UNIT SUBCUT (21:06)
[2019-08-11] MEDS: pneumococcal (23 valent) SDV 0.5 mL IM (21:07)
[2019-08-11 23:33] LABS: Amphetamines Screen Urine Negative (Negative); Barbiturates Screen Urine Negative (Negative); Benzodiazepines Screen Urine Negative (Negative); Cocaine Screen Urine Negative (Negative); Opiate Screen Urine Negative (Negative); PCP Screen Urine Negative (Negative); Potassium, Radom Urine 15 mmol/L; THC Screen Urine Negative (Negative); Urine Creatinine 35 mg/dL (39-259); Urine Random Chloride 39 mmol/L; Urine Random Sodium 43 mmol/L
[2019-08-12] VITALS (7 sets, daily range): BP systolic 138–178; BP diastolic 70–96; PULSE 71–76; RESP 12–27; TEMP 36.6–37.1; O2SAT 90–94
--- NOTE | 2019-08-12 00:09 | PC.NURSE ---
Patient wanted to walk around room said he hurt laying or sitting long because of the fluid in him. Alsp patient having trouble breathing and keeping his saturation levels up (dropped to 77%) because of the fluid build up mid section (anasarca noticed as well as his dependant edema so we put him on 2 liters of O2 via nasal cannula. When collected urine specimen patients urine was reddish with bits of bloody flakes in it.
[2019-08-12 05:32] LABS: Basophils % 0.5 %; Eosinophils # 0.3 10^3/uL (0.0-0.8); Eosinophils % 3.8 %; Hematocrit 41.6 % (42.0-52.0); Hemoglobin 13.6 g/dL (11.7-16.6); Lymphocytes # 1.7 10^3/uL (0.8-4.8); Lymphocytes % 19.4 %; Mean Corpuscular HGB Conc 32.7 g/dL (30.0-36.0); Mean Corpuscular Hemoglobin 27.2 pg (28.0-34.0); Mean Corpuscular Volume 83.2 fL (80-94); Mean Platelet Volume 11.3 fL (7.4-10.4); Monocytes # 0.7 10^3/uL (0.2-0.9); Monocytes % 7.6 %; Neutrophils # 5.8 10^3/uL (1.8-7.7); Neutrophils % 68.3 %; Nucleated Red Blood Cells % 0 %; Platelet Count 252 10^3/cmm (130-400); Red Cell Distribution Width 12.4 % (12.1-15.1); White Blood Count 8.5 10^3/uL (4.0-10.0)
[2019-08-12 05:45] LABS: Alanine Aminotransferase 25 U/L (0-41); Albumin Level 2.6 g/dL (3.5-5.2); Alkaline Phosphatase 58 IU/L (40-130); Anion Gap 12.6 (5-19); Aspartate Amino Transferase 20 U/L (0-40); Blood Urea Nitrogen 44 mg/dL (6-20); Calcium 9.6 mg/Dl (8.6-10.0); Carbon Dioxide 32 mmol/L (22-29); Chloride 97 mmol/L (98-107); Chol HDL Ratio 4.47 mg/dL (1.0-5.00); Cholesterol 192 mg/dL (0-200); Globulin 3.5 g/dL (1.3-4.6); Glomerular Filtration Rate 37.9 mL/min (90-130); Glucose 316 mg/dL (74-109); HDL Cholesterol 43 mg/dL (60-100); LDL Cholesterol Calculated 103 mg/dL (50-129); Magnesium 2.4 mg/dL (1.7-2.3); Potassium 3.6 mmol/L (3.5-5.1); Sodium 138 mmol/L (136-145); Total Bilirubin 0.2 mg/dL (0.15-1.2); Total Protein 6.1 g/dL (6.6-8.7); Triglycerides 232 mg/dL (0-150); VLDL Cholestrol Calculation 46 mg/dL (0-30)
[2019-08-12 06:11] LABS: Estmated Average Glucose 369; Hemoglobin A1C 14.5 % (4.0-6.0)
[2019-08-12] MEDS: FUROsemide 10 mg/mL SDV 4mL 40 MG IVP ×2 (06:20→17:26)
[2019-08-12] MEDS: heparin 5,000 unit/mL INJ 1 mL 5000 UNIT SUBCUT ×2 (06:20→17:26)
[2019-08-12 07:24] LABS: Glucose Point of Care 237 mg/dL (70-110)
[2019-08-12] MEDS: atorvastatin 40 mg Tablet 80 MG PO (08:35)
[2019-08-12] MEDS: carvedilol 25 mg Tablet PO ×2 (08:35→17:26)
[2019-08-12] MEDS: bumetanide 1 mg Tablet 2 MG PO (08:35)
[2019-08-12] MEDS: citalopram 20 mg Tablet 40 MG PO (08:35)
[2019-08-12] MEDS: fenofibrate 145 mg Tablet PO (08:35)
[2019-08-12] MEDS: aspirin 325 mg Tablet PO (08:36)
[2019-08-12] MEDS: morphine 4 mg/mL SDV 1 mL IVP ×2 (10:15→21:24)
[2019-08-12 11:27] LABS: Glucose Point of Care 301 mg/dL (70-110)
--- NOTE | 2019-08-12 15:58 | PC.CHAP ---
Pastoral Care Encounter/Spiritual Assessment Type of Contact [] Declined riprap placer visit [x] Patient/Family/Request visit [] Outpatient visit [] Follow-up visit [] Physician referral [] Code/Alert [] Routine visit [] Staff referral [] Actively dying [] Patient sleeping [] Family support [] [] Out of room [] Palliative care [] [] Receiving care in room [] Pre-surgical visit [] Trauma [] Long length of stay [] ICU visit [] Other: Relational/Emotional Strength [] Patient feels connected with others/family/visitors/staff [] Distress [] Loneliness/isolation [] Abandonment Spirituality of Patient [] Person of Lizabeth [x] Attends Congregation of their Lizabeth [] Believes in Prayer [] Reads Bible or Catholic materials [] There are Spiritual issues to be addressed Checkroom Chief Interventions [x] Prayer [] Active listening [] Non-anxious presence [] Spiritual/emotional support [] Crisis/trauma care [] Spiritual counseling [] Bereavement support [] Provided bereavement packet [] Provided Bible/devotional materials [] Provided toy/stuffed animal, coloring book to patient or family member [] Completed spiritual assessment [] Provided Communion [] Anointing/[place] [] Salvation [] Other: Impact on Illness or Injury [x] Angry [] Fearful [x] Anxious [] Often cries [x] Exhaustion [] Unable to work [x] Unable to attend baptism [] Unable to walk/stand [] Unable to read [] Unable to drive [] Unable to eat/drink [] Unable to sleep [] Unable to be with family [] Other: Summary keeps god in own way nicolle agrue Time spent with patient
[2019-08-12 16:56] LABS: Glucose Point of Care 240 mg/dL (70-110)
--- NOTE | 2019-08-12 17:49 | PM.PN ---
Subjective Subjective: Interval history: Swelling over lower extremities and scrotum improved today. Patient has a urinary catheter. This morning this self catheter was possibly dislodged and patient had minimal bleeding. Hematuria is clearing up at this time. Incidentally noted is thick white discharge at the tip of the penis at site of insertion of the Melgar catheter per patient. Patient states that he has not had any puslike discharge from the penis prior to this admission. Denies any history of STDs. Denies any history of burning micturition or urinary symptoms prior to admission. Creatinine at 1.9 today. Medications: Reviewed: Yes Vitals/I&O/Wt Last Vital Signs Temp 98.1 F 08/12/19 16:00 Pulse 74 08/12/19 16:00 Resp 22 H 08/12/19 16:00 BP 138/70 08/12/19 16:00 Pulse Ox 90 08/12/19 16:00 08/12/19 08/12/19 08/12/19 06:59 14:59 22:59 Intake Total 600 / 600 Output Total 2350 / 4450 1000 / 1000 550 / 1550 Balance -2350 / -4050 -400 / -400 -550 / -950 Weight last 48 hrs Weight 158.213 kg Weight 157.759 kg Physical Exam Narrative: EXAM NARRATIVE: GEN: Awake, alert and oriented, no acute distress CVS: S1S2 N no murmurs rubs or gallops RS: CTA B/L Abd: Soft, nt/nd , bs+ OFFICE ASSISTANT: no focal neuro 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 This has been swapped and sent for culture. Scrotal edema present. Warmth or tenderness. Lower extremity edema is improved, still 3+ pitting Urinary Catheter Management^: Melgar: Cath Placed During This Visit: no Data Micro: Micro: Microbiology 08/11/19 13:45 Urine Culture - Pr eliminary Urine,Clean Catch Strep species, gamma-hemolytic A&P Assessment and plan (1) Anasarca: Status: Acute Code(s): R60.1 - Generalized edema (2) CHF exacerbation: Status: Acute Qualifiers: Heart failure type: unspecified Qualified Code(s): I50.9 - Heart failure, unspecified Code(s): I50.9 - Heart failure, unspecified (3) Hypertension: Status: Acute Code(s): I10 - Essential (primary) hypertension (4) CKD stage 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: Status: Acute Code(s): E11.22 - Type 2 diabetes mellitus with diabetic chronic kidney disease; N18.3 - Chronic kidney disease, stage 3 (moderate) (5) Uncontrolled diabetes mellitus: Status: Acute Code(s): E11.65 - Type 2 diabetes mellitus with hyperglycemia (6) Sczli-sy-evoahzn kidney injury: Status: Acute Code(s): N17.9 - Acute kidney failure, unspecified; N18.9 - Chronic kidney disease, unspecified Additional A&P Information Congestive heart failure of unknown type: Anasarca: Most likely patient has mixed type of congestive heart failure possibly due to ischemia and uncontrolled diabetes induced cardiomyopathy. proBNP more than 3000. 6 months ago was around 2800. At home patient is on Lasix 40 mg twice daily and Bumex 2 mg. Patient was given 80 mg IV Lasix in the ER. We will continue patient on 40 mg Lasix IV twice daily. Continue with Bumex at home dose. Daily weight Monitor intake and output. Echocardiogram was inadequate for estimation of LVEF or RWMA. Continue with carvedilol 25 mg twice daily. We will hold off on losartan for now in view of acute on chronic kidney injury. Patient would also be getting high-dose of diuresis right now. Acute on chronic kidney injury: Baseline creatinine seems to be around 1.66 months ago. At present 1.9. Most likely cardiorenal syndrome. Normal ultrasound of kidneys. Hold off on losartan as said above. Medications reconciled for nephrotoxic drugs. Uncontrolled diabetes: Hba1c 14, s/o uncontrolled DM Continue on home dose of Lantus 60 units twice daily. Will start patient on high-dose insulin sliding scale. Most likely patient would need higher dose of Lantus as well. Cardiac carbohydrate consistent diet. Hypertension: We will continue on home dose of carvedilol. Holding off losartan for now. If blood pressure was higher than 150 can start the patient on hydralazine. Patient is not in acute shortness of breath so we will hold off on nitro for now. Troponin leak: Most likely in view of CHF and acute on chronic kidney injury with a creatinine of 1.9. We will continue to follow. No acute changes in the EKG. Full code Heparin 5000 SQ 12 Cardiac carb consistent diet. Attestations Medical Necessity Statement*: optimization of diuretic regimen in view of anasarca Coding Level of Care Code Acute Certified Nurses' Aide for g Fwd Diagnoses Anasarca R60.1 CHF exacerbation I50.9 Heart failure type: unspecified Hypertension I10 CKD stage 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 E11.22; N18.3 Uncontrolled diabetes mellitus E11.65 Fouxp-ze-vozvqjz kidney injury N17.9; N18.9
[2019-08-12 21:11] LABS: Glucose Point of Care 293 mg/dL (70-110)
[2019-08-13] VITALS (9 sets, daily range): BP systolic 128–171; BP diastolic 76–101; PULSE 70–75; RESP 17–24; TEMP 36.7–36.9; O2SAT 89–93
--- NOTE | 2019-08-13 03:34 | PC.NURSE ---
Patient c/o burning to espinal catheter site. Urine is currently red tinged with red sediment in line. Explained to patient about initial trauma that may happen during espinal insertion. Patient verbalized understanding however is concerned of possible infection developing. Informed Dr Betts of patient concern.
[2019-08-13] MEDS: heparin 5,000 unit/mL INJ 1 mL 5000 UNIT SUBCUT ×2 (05:43→17:50)
[2019-08-13] MEDS: FUROsemide 10 mg/mL SDV 4mL 40 MG IVP (05:44)
[2019-08-13] MEDS: morphine 4 mg/mL SDV 1 mL IVP ×3 (05:50→20:41)
[2019-08-13 08:04] LABS: Glucose Point of Care 274 mg/dL (70-110)
[2019-08-13] MEDS: atorvastatin 40 mg Tablet 80 MG PO (08:37)
[2019-08-13] MEDS: fenofibrate 145 mg Tablet PO (08:37)
[2019-08-13] MEDS: bumetanide 1 mg Tablet 2 MG PO (08:37)
[2019-08-13] MEDS: tamsulosin 0.4 mg Capsule PO (08:37)
[2019-08-13] MEDS: aspirin 325 mg Tablet PO (08:37)
[2019-08-13] MEDS: carvedilol 25 mg Tablet PO ×2 (08:37→17:50)
[2019-08-13] MEDS: citalopram 20 mg Tablet 40 MG PO (08:37)
[2019-08-13] MEDS: cefTRIAXone 1,000 MG in sodium chloride 0.9% (plus) 50 ML 100 MG IV (10:49)
[2019-08-13 10:51] LABS: Basophils % 0.5 %; Eosinophils # 0.3 10^3/uL (0.0-0.8); Eosinophils % 4.1 %; Hematocrit 41.1 % (42.0-52.0); Hemoglobin 13.1 g/dL (11.7-16.6); Lymphocytes # 1.4 10^3/uL (0.8-4.8); Mean Corpuscular HGB Conc 31.9 g/dL (30.0-36.0); Mean Corpuscular Hemoglobin 27.2 pg (28.0-34.0); Mean Corpuscular Volume 85.4 fL (80-94); Mean Platelet Volume 11.1 fL (7.4-10.4); Monocytes # 0.5 10^3/uL (0.2-0.9); Monocytes % 6.9 %; Neutrophils # 5.2 10^3/uL (1.8-7.7); Neutrophils % 69.2 %; Nucleated Red Blood Cells % 0 %; Platelet Count 251 10^3/cmm (130-400); Red Blood Count 4.81 10^6/uL (4.1-5.3); Red Cell Distribution Width 12.5 % (12.1-15.1); White Blood Count 7.5 10^3/uL (4.0-10.0)
[2019-08-13 11:06] LABS: Alanine Aminotransferase 20 U/L (0-41); Albumin Level 2.5 g/dL (3.5-5.2); Alkaline Phosphatase 57 IU/L (40-130); Anion Gap 12.8 (5-19); Aspartate Amino Transferase 15 U/L (0-40); Blood Urea Nitrogen 43 mg/dL (6-20); Carbon Dioxide 33 mmol/L (22-29); Chloride 95 mmol/L (98-107); Globulin 3.4 g/dL (1.3-4.6); Glomerular Filtration Rate 35.7 mL/min (90-130); Glucose 349 mg/dL (74-109); Potassium 3.8 mmol/L (3.5-5.1); Sodium 137 mmol/L (136-145); Total Bilirubin 0.2 mg/dL (0.15-1.2); Total Protein 5.9 g/dL (6.6-8.7)
[2019-08-13 11:42] LABS: Glucose Point of Care 268 mg/dL (70-110)
--- NOTE | 2019-08-13 12:12 | US_ITS ---
WS: [id number] TESTICULAR ULTRASOUND HISTORY: edema vs cellulitis COMPARISON: 04/10/2017 TECHNIQUE: Real-time and color Doppler imaging or utilized to perform a testicular ultrasound. Right testicle: 4.0 cm x 2.8 cm x 3.5 cm. Increased echogenicity throughout the RIGHT testicle. Abnormal orientation of the RIGHT testicle as c ompared to the prior study due to marked edema in the scrotal sac. There is also some increased echog enicity surrounding the testicle which is probably edema. No torsion. Normal color Doppler is present throughout. Systolic and diastolic velocities are both present. No significant hydrocele. Right epididymis: Normal epididymis with no increased vascularity. Left testicle: 4.3 cm x 3.2 cm x 3.5 cm. Normal size and echogenicity. No mass or torsion. Normal color Doppler is present throughout. Systolic and diastolic velocities are both present. No significant hydrocele. Left epididymis: Normal epididymis with no increased vascularity. Diffuse scrotal wall thickening and edema. No increased vascularity. US/US scrotum [id number] IMPRESSION: 1. Diffuse scrotal wall thickening is most consistent with edema. No abscess i dentified. 2. Testicles are being displaced by the large amount of scrotal wall thickenin g. No torsion or mass identified.
--- NOTE | 2019-08-13 15:57 | P.PN_ITS ---
Subjective Subjective: Interval history: Improving edema over bilateral lower extremities however scrotum continues to be edematous. Urine output is at 3.9 L. Creatinine at 2.0. Afebrile, hemodynamically stable. 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 Scrotal edema present. no Warmth or tenderness. Lower extremity edema is improved, still 3+ pitting Urinary Catheter Management^: Melgar: Cath Placed During This Visit: no Data Micro: Micro: Microbiology 08/12/19 16:30 Gram Stain - Final Groin 08/11/19 13:45 Urine Culture - Pr eliminary Urine,Clean Catch Strep species, gamma-hemolytic A&P Assessment and plan (1) Anasarca: Status: Acute Code(s): R60.1 - Generalized edema (2) CHF exacerbation: Status: Acute Qualifiers: Heart failure type: unspecified Qualified Code(s): I50.9 - Heart failure, unspecified Code(s): I50.9 - Heart failure, unspecified (3) Hypertension: Status: Acute Code(s): I10 - Essential (primary) hypertension (4) CKD stage 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: Status: Acute Code(s): E11.22 - Type 2 diabetes mellitus with diabetic chronic kidney disease; N18.3 - Chronic kidney disease, stage 3 (moderate) (5) Uncontrolled diabetes mellitus: Status: Acute Code(s): E11.65 - Type 2 diabetes mellitus with hyperglycemia (6) Dwtsh-ry-xynqdak kidney injury: Status: Acute Code(s): N17.9 - Acute kidney failure, unspecified; N18.9 - Chronic kidney disease, unspecified Additional A&P Information Congestive heart failure of unknown type: Anasarca: Most likely patient has mixed type of congestive heart failure possibly due to ischemia and uncontrolled diabetes induced cardiomyopathy. proBNP more than 3000. 6 months ago was around 2800. At home patient is on Lasix 40 mg twice daily and Bumex 2 mg. Given rising creatinine will hold Bumex for now. We will additionally hold the evening dose of Lasix. Will give one-time dose of Diamox given evidence of contraction alkalosis. Daily weight Monitor intake and output. Echocardiogram was inadequate for estimation of LVEF or RWMA. Continue with carvedilol 25 mg twice daily. We will hold off on losartan for now in view of acute on chronic kidney injury. Patient would also be getting high-dose of diuresis right now. Acute on chronic kidney injury: Baseline creatinine seems to be around 1.66 months ago. At present 2.0. Most likely cardiorenal syndrome. Normal ultrasound of kidneys. Hold off on losartan as said above. Medications reconciled for nephrotoxic drugs. Uncontrolled diabetes: Hba1c 14, s/o uncontrolled DM. Continue on Lantus 40 units twice daily. Will start patient on high-dose insulin sliding scale. Cardiac carbohydrate consistent diet. Hypertension: We will continue on home dose of carvedilol. Holding off losartan for now. If blood pressure was higher than 150 can start the patient on hydralazine. Patient is not in acute shortness of breath so we will hold off on nitro for now. Given puslike discharge of penis and scrotal swelling will obtain ultrasound of the scrotum to rule out underlying inflammatory changes. Troponin leak: Most likely in view of CHF and acute on chronic kidney injury with a creatinine of 1.9. We will continue to follow. No acute changes in the EKG. Full code Heparin 5000 SQ 12 Cardiac carb consistent diet. Attestations Medical Necessity Statement*: Remains admitted for cross anasaa currently worsening renal function and aggressive diuresis. Coding Level of Care Code Acute Research Development Manager for [facility] Geovanna Diagnoses Anasarca R60.1 CHF exacerbation I50.9 Heart failure type: unspecified Hypertension I10 CKD stage 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 E11.22; N18.3 Uncontrolled diabetes mellitus E11.65 Vizlr-jv-ocxwprz kidney injury N17.9; N18.9
[2019-08-13 16:55] LABS: Glucose Point of Care 275 mg/dL (70-110)
[2019-08-13] MEDS: insulin glargine 100 units/1 mL 40 UNIT SUBCUT (17:49)
[2019-08-13 21:17] LABS: Glucose Point of Care 352 mg/dL (70-110)
[2019-08-14] VITALS (10 sets, daily range): BP systolic 142–157; BP diastolic 84–102; PULSE 66–78; RESP 16–24; TEMP 36.4–36.9; O2SAT 90–96
[2019-08-14] MEDS: morphine 4 mg/mL SDV 1 mL IVP ×3 (03:43→21:19)
[2019-08-14] MEDS: heparin 5,000 unit/mL INJ 1 mL 5000 UNIT SUBCUT ×2 (05:48→18:03)
--- NOTE | 2019-08-14 06:00 | ECG_ITS ---
NAME OF STUDY: LEXISCAN SESTAMIBI STRESS TEST INDICATION: CHF, NEW onset PROCEDURE: At the baseline, the blood pressure was 160/106 mmHg with a heart rate of 68 bpm and oxygen saturation 94%. The electrocardiogram showed normal sinus rhythm, normal axis. Poor anterior R wave progression. The Lexiscan was infused over a period of 20 seconds. A total of 0.4 milligrams of Lexiscan was infused. The stress phase was continued for a total of 5 minutes. Heart rate at the end of the stress phase was 80 bpm, oxygen saturation 96% with a blood pressure 129/98 mmHg. The EKG at the peak infusion revealed sinus rhythm with no significant ST-T wave changes. Sestamibi was injected 20 seconds after the Lexiscan infusion. Blood pressure at the end of the recovery phase was 139/96 mmHg oxygen saturation 96% with a heart rate of 76 beats per minute. CONCLUSION: 1. Normal EKG response to LexiScan infusion. 2. No LexiScan induced chest pain or cardiac arrhythmia. 3. Normal blood pressure and heart rate response. 4. Sestamibi/sestamibi perfusion scan pending; see separate report. Electronically Signed On 08-14-2019 12:52:27 BRICK TENDER by Rosie Ivey M.D. [id number]
[2019-08-14 08:08] LABS: Glucose Point of Care 286 mg/dL (70-110)
--- NOTE | 2019-08-14 08:11 | SUR.PREOP ---
Patient reports no pain or discomfort prior to the start of the procedure.
[2019-08-14] MEDS: regadenoson 0.4 Mg/5 ml Syringe IVP (08:13)
--- NOTE | 2019-08-14 09:03 | PM.PN ---
Subjective Subjective: Interval history: LE edema persisting but improving. Scrotal swelling persisting. No new complaints today. Underwent stress test this am. Afberile, hemodynamically stable. Cr 1.9. 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 Scrotal edema present. no Warmth or tenderness. Lower extremity edema is improving, still 3+ pitting Urinary Catheter Management^: Rodas: Cath Placed During This Visit: no Data Micro: Micro: Microbiology 08/11/19 13:45 Urine Culture - Fi nal Urine,Clean Catch Enterococcus fa ecalis 08/12/19 16:30 Gram Stain - Final Groin A&P Assessment and plan (1) Anasarca: Status: Acute Code(s): R60.1 - Generalized edema (2) CHF exacerbation: Status: Acute Qualifiers: Heart failure type: unspecified Qualified Code(s): I50.9 - Heart failure, unspecified Code(s): I50.9 - Heart failure, unspecified (3) Hypertension: Status: Acute Code(s): I10 - Essential (primary) hypertension (4) CKD stage 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: Status: Acute Code(s): E11.22 - Type 2 diabetes mellitus with diabetic chronic kidney disease; N18.3 - Chronic kidney disease, stage 3 (moderate) (5) Uncontrolled diabetes mellitus: Status: Acute Code(s): E11.65 - Type 2 diabetes mellitus with hyperglycemia (6) Swryr-rr-cnahzld kidney injury: Status: Acute Code(s): N17.9 - Acute kidney failure, unspecified; N18.9 - Chronic kidney disease, unspecified Additional A&P Information Congestive heart failure of unknown type: Anasarca: Most likely patient has mixed type of congestive heart failure possibly due to ischemia and uncontrolled diabetes induced cardiomyopathy. proBNP more than 3000. 6 months ago was around 2800. At home patient is on Lasix 40 mg twice daily and Bumex 2 mg. Given rising creatinine will hold Bumex for now. Will give lasix 60mg iv and diamox again. Sstart on Lasix 60mg po BID tomorrow. Daily weight Monitor intake and output. Echocardiogram was inadequate for estimation of LVEF or RWMA. Pending stress test results. Continue with carvedilol 25 mg twice daily. We will hold off on losartan for now in view of acute on chronic kidney injury. Patient would also be getting high-dose of diuresis right now. Acute on chronic kidney injury: Baseline creatinine seems to be around 1.66 months ago. At present 2.0. Most likely cardiorenal syndrome. Normal ultrasound of kidneys. Hold off on losartan as said above. Medications reconciled for nephrotoxic drugs. Uncontrolled diabetes: Hba1c 14, s/o uncontrolled DM. Continue on Lantus 40 units twice daily. Will start patient on high-dose insulin sliding scale. Cardiac carbohydrate consistent diet. Hypertension: We will continue on home dose of carvedilol. Holding off losartan for now. If blood pressure was higher than 150 can start the patient on hydralazine. Patient is not in acute shortness of breath so we will hold off on nitro for now. Scrotal swelling 2/2 anasarca. No signs of cellulitis. USG negative for epididymoorchitis. Clinically not septic. Ddischarge at meatus likely o be 2/2 inflammation. will remove Rodas today to minimize risk of stricture formation Troponin leak: Most likely in view of CHF and acute on chronic kidney injury with a creatinine of 1.9. We will continue to follow. No acute changes in the EKG. Full code Heparin 5000 SQ 12 Cardiac carb consistent diet. Attestations Medical Necessity Statement*: ongoing managanemnt of anasarca 2/2 heart failure, s/p stress test today to ascertai cause. Coding Level of Care Code Acute Heading Matcher And Assembler for Chg Fwd Diagnoses Anasarca R60.1 CHF exacerbation I50.9 Heart failure type: unspecified Hypertension I10 CKD stage 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 E11.22; N18.3 Uncontrolled diabetes mellitus E11.65 Lgkog-ux-kqyqhvm kidney injury N17.9; N18.9
[2019-08-14] MEDS: tamsulosin 0.4 mg Capsule PO (11:32)
[2019-08-14] MEDS: aspirin 325 mg Tablet PO (11:32)
[2019-08-14] MEDS: carvedilol 25 mg Tablet PO ×2 (11:33→18:03)
[2019-08-14] MEDS: fenofibrate 145 mg Tablet PO (11:33)
[2019-08-14] MEDS: citalopram 20 mg Tablet 40 MG PO (11:33)
[2019-08-14] MEDS: atorvastatin 40 mg Tablet 80 MG PO (11:33)
[2019-08-14] MEDS: insulin glargine 100 units/1 mL 40 UNIT SUBCUT (11:33)
[2019-08-14 11:44] LABS: Glucose Point of Care 222 mg/dL (70-110)
[2019-08-14 12:17] LABS: Basophils % 0.4 %; Eosinophils # 0.3 10^3/uL (0.0-0.8); Eosinophils % 3.4 %; Hematocrit 42.3 % (42.0-52.0); Hemoglobin 13.5 g/dL (11.7-16.6); Lymphocytes # 1.2 10^3/uL (0.8-4.8); Lymphocytes % 12.2 %; Mean Corpuscular HGB Conc 31.9 g/dL (30.0-36.0); Mean Corpuscular Hemoglobin 27.4 pg (28.0-34.0); Mean Corpuscular Volume 85.8 fL (80-94); Mean Platelet Volume 10.9 fL (7.4-10.4); Monocytes # 0.6 10^3/uL (0.2-0.9); Monocytes % 6.1 %; Neutrophils # 7.4 10^3/uL (1.8-7.7); Neutrophils % 77.6 %; Nucleated Red Blood Cells % 0 %; Platelet Count 261 10^3/cmm (130-400); Red Blood Count 4.93 10^6/uL (4.1-5.3); Red Cell Distribution Width 12.4 % (12.1-15.1); White Blood Count 9.5 10^3/uL (4.0-10.0)
[2019-08-14 12:32] LABS: Alanine Aminotransferase 17 U/L (0-41); Albumin Level 2.6 g/dL (3.5-5.2); Alkaline Phosphatase 50 IU/L (40-130); Anion Gap 15.3 (5-19); Aspartate Amino Transferase 13 U/L (0-40); Blood Urea Nitrogen 50 mg/dL (6-20); Calcium 9.4 mg/Dl (8.6-10.0); Carbon Dioxide 31 mmol/L (22-29); Chloride 96 mmol/L (98-107); Globulin 3.5 g/dL (1.3-4.6); Glomerular Filtration Rate 37.9 mL/min (90-130); Glucose 208 mg/dL (74-109); Potassium 4.3 mmol/L (3.5-5.1); Sodium 138 mmol/L (136-145); Total Bilirubin 0.2 mg/dL (0.15-1.2); Total Protein 6.1 g/dL (6.6-8.7)
[2019-08-14] MEDS: ondansetron 2 mg/ML SDV 2 mL 4 MG IVP (15:16)
[2019-08-14 15:58] LABS: Glucose Point of Care 112 mg/dL (70-110)
[2019-08-14] MEDS: FUROsemide 10 mg/mL SDV 10mL 60 MG IVP (18:03)
[2019-08-14 21:03] LABS: Glucose Point of Care 208 mg/dL (70-110)
--- NOTE | 2019-08-14 23:55 | NMCV_ITS ---
Akil Velasco Age: 49 Gender: M : 1970 Exam Date: 08/14/2019 23:55 Ordering Phys: Jacqui Ascencio MD Technologist: BECCA Escobedo Exam Location: [facility] Indications: Chest Pain STRESS TEST Please see separate stress test report in [facility] for full findings IMAGE PROTOCOL Rest/Stress 1 Lexiscan Day Radiopharmaceutical Dose (mCi) Administration Site Administered by Rest: Tc-99m 11 IV BECCA Escobedo Sestamibi Stress:Tc-99m 32.3 IV BECCA Escobedo Sestamibi Rest: 14-Aug-2019 60 Discovery 630 Stress: 14-Aug-2019 60 Discovery 630 0.4mg Lexiscan. Supine position only as patient was unable to lay prone. SPECT RESULTS Technical Quality: Good Raw Data Analysis: Normal, Soft tissue attenuation Image Corrections: No attenuation or motion correction applied Summed Stress Score: 0 Summed Rest Score: 6 Summed Difference Score: 0 PERFUSION FINDINGS Small size perfusion abnormality of moderate severity of apical anterior and apical lateral wall on rest images with improved tracer uptake on stress images. This is suggestive of attenuation artifact. FUNCTIONAL RESULTS (calculated via Gated SPECT) Stress Image LV EF (%): 25 Stress EDV (mL):175 TID: 0.81 Stress ESV (mL):132 FUNCTIONAL FINDINGS: The left ventricle is dilated. Transient Ischemia Dilatation of 0.81. There is severely reduced left ventricular global systolic function. The left ventricular ejection fraction is severely reduced with a value of 25%. Global hypokinesis more pronounced in apical farias. Increased end-diastolic and end-systolic volumes IMPRESSIONS 1. Small size perfusion abnormality of moderate severity of apical anterior and apical lateral farias with improved tracer uptake on stress images. This is suggestive of attenuation artifact. 2. The left ventricular ejection fraction is severely reduced with a value of 25%. 3. Global hypokinesis more pronounced in apical farias. 4. No coronary ischemia based on the study. Rosie Ivey MD (Electronically Signed) Final Date: 14 August 2019 13:17 S
[2019-08-15] VITALS (8 sets, daily range): BP systolic 135–162; BP diastolic 88–97; PULSE 64–68; RESP 17–21; TEMP 36.7–36.9; O2SAT 85–98
[2019-08-15] MEDS: heparin 5,000 unit/mL INJ 1 mL 5000 UNIT SUBCUT (05:39)
[2019-08-15 07:44] LABS: Glucose Point of Care 194 mg/dL (70-110)
[2019-08-15] MEDS: fenofibrate 145 mg Tablet PO (08:11)
[2019-08-15] MEDS: FUROsemide 40 mg Tablet 60 MG PO ×2 (08:11→17:29)
[2019-08-15] MEDS: citalopram 20 mg Tablet 40 MG PO (08:11)
[2019-08-15] MEDS: aspirin 325 mg Tablet PO (08:11)
[2019-08-15] MEDS: carvedilol 25 mg Tablet PO ×2 (08:12→17:29)
[2019-08-15] MEDS: atorvastatin 40 mg Tablet 80 MG PO (08:12)
[2019-08-15] MEDS: insulin glargine 100 units/1 mL 40 UNIT SUBCUT ×2 (08:13→17:28)
[2019-08-15] MEDS: morphine 4 mg/mL SDV 1 mL IVP (08:21)
[2019-08-15] MEDS: tamsulosin 0.4 mg Capsule PO (08:22)
--- NOTE | 2019-08-15 08:59 | PM.DCS ---
Discharge Providers Date of Admission: 08/12/19 17:55 Date of Discharge: 08/15/19 Attending Provider at Admission: Edil Bonner MD Attending Provider at Discharge: Jacqui Ascencio MD Primary Care Provider: Sulma Wetzel MD Diagnoses at Discharge Discharge Diagnosis (1) Anasarca: Status: Acute (2) CHF exacerbation: Status: Acute Qualifiers: Heart failure type: unspecified Qualified Code(s): I50.9 - Heart failure, unspecified (3) Hypertension: Status: Acute (4) CKD stage 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: Status: Acute (5) Uncontrolled diabetes mellitus: Status: Acute (6) Mypdi-zv-gpplkic kidney injury: Status: Acute (7) Non-ischemic cardiomyopathy: Status: Acute Reason for Visit Reason for Visit: Reason For Visit: Chest pain Hospital Course Discharge Summary: Akil Velasco is a 49 year old male noncompliant with past medical history of possible CHF of unknown type, possible CAD, hypertension, severely uncontrolled diabetes, CKD stage III, bilateral partial nephrectomy for some type of cancer. He presented to ER with c/o fluid retention to his legs all the way up to his scrotum and his abdominal wall upto his chest progressively increasing for last 3 months even though he has been on diuretics. On admission his renal functions were mildly derranged as complare to his baseline creat of 1.6-1.8 which were though 2/2 CRS and diabetic nephropathy. He was admitted and started on aggressive IV diuresis while monitoring his renal functions. His renal functions were fluctuating so his home dose of losartan was held. He responded well to diuresis and in all was around 7 lt net negative. He underwent ECHOcardiogram which was inconclusive given poor window but his stress showed dilated LV with global LV hypokinesia and EF of 25% and Small size perfusion abnormality of moderate severity of apical anterior and apical lateral farias with improved tracer uptake on stress images which was deemed suggestive of attenuation artifact. He was penile discharge along with scrotal swelling for which STI screen was negative and USG scrotum was was unremarkable as well. He is adviced to follow up with cardiology for nonischemic cardiomyopathy workup most likely due to uncontrolled blood sugars. His home dose of ISS and long acting insulins were adjusted. He has been counseled and educated about lifestyle modifications and being discharged in hemodynamically stable condition. 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 Scrotal edema present. no Warmth or tenderness. Lower extremity edema is improving, still 3+ pitting Urinary Catheter Management^: Melgar: Cath Placed During This Visit: no Discharge Data Data Completed and Pending: Completed Studies During Hospitalization Category Date Time Status Sestamibi Stress Test Request Routi ne Exams 08/14/19 06:00 Completed XR chest 2V* 7104 6 Stat Exams 08/11/19 12:07 Completed NM igor perf SPECT r&s* 34102 Routin e Nuc Med 08/14/19 23:55 Completed CV echo complete* [id number] Routine Ultrasound 08/11/19 16:57 Completed US renal BI with bladder Routine Ultrasound 08/11/19 17:45 Completed US scrotum [id number] Routine Ultrasound 08/13/19 12:12 Completed Pending at discharge Category Date Time Status Sestamibi Stress Test Request Routi ne Exams 08/13/19 23:55 Stop Req Complete Blood Co unt w/Auto Routine Lab 08/15/19 08:43 Ordered Comprehensive Met abolic Panel Routi ne Lab 08/15/19 08:43 Ordered Wound Culture and Gram Stain Routin e Lab 08/12/19 16:30 Results Labs from last 24 hours 08/15/19 08/14/19 08/14/19 07:25 20:31 15:27 WBC RBC Hgb Hct MCV MCH MCHC RDW Plt Count MPV Neut % (Auto) Lymph % (Auto) Harmon % (Auto) Eos % (Auto) Baso % (Auto) Neut # (Auto) Lymph # (Auto) Harmon # (Auto) Eos # (Auto) Baso # (Auto) Nucleated RBC % (a uto) Nucleated RBCs # Sodium Potassium Chloride Carbon Dioxide Anion Gap BUN Creatinine GFR Calculation Glucose POC Glucose 194 208 112 Calcium Total Bilirubin AST ALT Alkaline Phosphata se Total Protein Albumin Globulin 08/14/19 08/14/19 08/14/19 12:05 12:05 11:23 WBC 9.5 RBC 4.93 Hgb 13.5 Hct 42.3 MCV 85.8 MCH 27.4 L MCHC 31.9 RDW 12.4 Plt Count 261 MPV 10.9 H Neut % (Auto) 77.6 Lymph % (Auto) 12.2 Harmon % (Auto) 6.1 Eos % (Auto) 3.4 Baso % (Auto) 0.4 Neut # (Auto) 7.4 Lymph # (Auto) 1.2 Harmon # (Auto) 0.6 Eos # (Auto) 0.3 Baso # (Auto) 0.0 Nucleated RBC % (a uto) 0 Nucleated RBCs # 0.0 Sodium 138 Potassium 4.3 Chloride 96 L Carbon Dioxide 31 H Anion Gap 15.3 BUN 50 H Creatinine 1.9 H GFR Calculation 37.9 L Glucose 208 H POC Glucose 222 Calcium 9.4 Total Bilirubin 0.2 AST 13 ALT 17 Alkaline Phosphata se 50 Total Protein 6.1 L Albumin 2.6 L Globulin 3.5 Vitals: Last Vital Signs Temp 98.2 F 08/15/19 07:26 Pulse 64 08/15/19 07:26 Resp 17 08/15/19 08:21 BP 147/92 08/15/19 07:26 Pulse Ox 98 08/15/19 08:21 Discharge Plan Discharge Patient Disposition: Home, Self-Care Condition: Stable Prescriptions: New furosemide 40 mg Tablet 60 mg PO BID@,16 30 Days Qty: 60 RF: 0 tamsulosin 0.4 mg Capsule 0.4 mg PO DAILY 30 Days Qty: 30 RF: 1 tramadol 50 mg tablet 50 mg PO BID PRN (Reason: pain) Qty: 30 RF: 0 Continued gabapentin 600 mg tablet See Rx Instructions .ROUTE .COMPLEX RF: 0 multivitamin Capsule 1 cap PO DAILY RF: 0 Zantac 150 mg Tablet 150 mg PO DAILY RF: 0 carvedilol 25 mg tablet 25 mg PO BID 30 Days Qty: 60 RF: 3 aspirin 325 mg Tablet 325 mg PO DAILY 30 Days Qty: 30 RF: 0 Novolog PenFill U-100 Insulin 100 unit/mL cartridge See Rx Instructions .ROUTE .COMPLEX PRN (Reason: Hyperglycemia) 30 Days Qty: 1 RF: 3 Tricor 145 mg Tablet 145 mg PO DAILY 30 Days Qty: 30 RF: 1 Celexa 40 mg tablet 40 mg PO DAILY 14 Days Qty: 14 RF: 0 Changed atorvastatin 80 mg tablet 40 mg PO DAILY 30 Days Qty: 30 RF: 1 bumetanide 2 mg Tablet 1 mg PO DAILY 30 Days Qty: 30 RF: 0 losartan 100 mg tablet 50 mg PO DAILY 30 Days Qty: 30 RF: 1 Lantus Solostar U-100 Insulin 100 unit/mL (3 mL) insulin pen 60 unit SUBCUT BIDPC 30 Days Qty: 1 RF: 3 Discontinued furosemide 40 mg tablet 40 mg PO BID RF: 0 cephalexin 500 mg capsule 500 mg PO BID 7 Days Qty: 14 RF: 0 potassium gluconate 550 mg (90 mg) Tablet 1,100 mg PO DAILY RF: 0 Discharge Orders: Discharge Order (Routine); Ordered 08/15/19 Ordered By: Jacqui Ascencio Other Ambulatory Orders: DME: Oxygen (Order) Location: None Selected Ordered By: Jacqui Ascencio Referrals: Sulma Wetzel MD [Primary Care Provider] - 7-10 days (You have a hospital follow up appointment with Dr. Wetzel on Sunday, August 18, at 8:45am. If you have any questions or concerns please call [facility]. ) Chris Goldstein MD [Physician] - 7-10 days (You will have a Cardiology follow up appointment with Dr. Goldstein within 7-10 days. [facility] will be calling you to arrange an appointment date and time. If you don't hear from them by Sunday please call the office. ) Discharge Diet: Diabetic, Low Salt, Low Cholesterol and Low Fat Discharge Activity: Resume usual activity Patient Instructions: Type 2 Diabetes, Diabetes and Diet, Furosemide (By mouth), Tamsulosin (By mouth), Congestive Heart Failure, Hypertension, Heart Failure (DC), Acute Kidney Injury (DC), How to Check Your Blood Sugar (DC), CHF Stoplight Activity Restrictions/Additional Instructions: Scrotal elevation is suggested. While lying down, roll-up a small towel and place this under your scrotum to elevate this area. This will allow for decreased swelling. Discharge Date/Time: 08/15/19 18:21 Discharge Attestations Time Spent in Discharge Care*: greater than 30 min Specific Discharge Activities: Specific discharge activities: educating patient and evaluating patient/reviewing data Status at Discharge: Cognitive status at discharge: cognitively intact, Behavioral status at discharge: cooperative, Functional status at discharge: independent ambulation Overall status at discharge: patient is progressing back to baseline Quality Metrics Clinical Quality Measures During this hospital stay, did patient experience: None Coding Level of Care Code Acute Infectious Disease Physician for Chg Fwd Diagnoses Anasarca R60.1 CHF exacerbation I50.9 Heart failure type: unspecified Hypertension I10 CKD stage 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 E11.22; N18.3 Uncontrolled diabetes mellitus E11.65 Usiyi-qd-tasnayi kidney injury N17.9; N18.9 Non-ischemic cardiomyopathy I42.8
[2019-08-15 10:56] LABS: Basophils % 0.5 %; Eosinophils # 0.5 10^3/uL (0.0-0.8); Eosinophils % 5.7 %; Hemoglobin 13.5 g/dL (11.7-16.6); Lymphocytes # 1.4 10^3/uL (0.8-4.8); Lymphocytes % 17.3 %; Mean Corpuscular HGB Conc 31.4 g/dL (30.0-36.0); Mean Corpuscular Hemoglobin 27.5 pg (28.0-34.0); Mean Corpuscular Volume 87.6 fL (80-94); Mean Platelet Volume 11.1 fL (7.4-10.4); Monocytes # 0.6 10^3/uL (0.2-0.9); Monocytes % 7.3 %; Neutrophils # 5.6 10^3/uL (1.8-7.7); Neutrophils % 68.8 %; Nucleated Red Blood Cells % 0 %; Platelet Count 272 10^3/cmm (130-400); Red Blood Count 4.91 10^6/uL (4.1-5.3); Red Cell Distribution Width 12.5 % (12.1-15.1); White Blood Count 8.1 10^3/uL (4.0-10.0)
[2019-08-15 11:07] LABS: Alanine Aminotransferase 18 U/L (0-41); Albumin Level 2.9 g/dL (3.5-5.2); Alkaline Phosphatase 51 IU/L (40-130); Anion Gap 15.5 (5-19); Aspartate Amino Transferase 19 U/L (0-40); Blood Urea Nitrogen 48 mg/dL (6-20); Calcium 9.5 mg/Dl (8.6-10.0); Carbon Dioxide 32 mmol/L (22-29); Chloride 96 mmol/L (98-107); Globulin 3.5 g/dL (1.3-4.6); Glomerular Filtration Rate 37.9 mL/min (90-130); Glucose 231 mg/dL (74-109); Potassium 4.5 mmol/L (3.5-5.1); Sodium 139 mmol/L (136-145); Total Bilirubin 0.2 mg/dL (0.15-1.2); Total Protein 6.4 g/dL (6.6-8.7)
[2019-08-15 11:57] LABS: Glucose Point of Care 180 mg/dL (70-110)
[2019-08-15 15:55] LABS: Glucose Point of Care 163 mg/dL (70-110)
--- NOTE | 2019-08-15 18:15 | PC.NURSE ---
Discharge to home with Instructed pt to follow-up with his pcp and litigation counsel as discussed. Educated pt on new meds dosing, timing, frequency; we go through the dosing changes to some of his home meds as well as the stopped meds. CHF stoplight discuss to pt such as the daily weight, to monitor for increase swelling and if any worsening of symptoms to call 911 or come to ER or notify his doctors. Pt verbalizes understanding. Oxygen company brought his portable oxygen tank. Administered t pt at 3 l/min as ordered. Discharge packet given to pt. Notified pt and of all his meds were sent to [facility] employee pharmacy.
== END 2019-08-15 18:21 | disposition home or self-care (01) | DRG 292 ==
LOC: ER 16:02 → MEDSURG 16:51 → CSU 17:56
PROVIDERS: Admitting Provider Student in an Organized Health Care Education/Training Program; Emergency Provider Family Medicine; PCP Internal Medicine; Visit Provider Student in an Organized Health Care Education/Training Program
DX: I13.0 Hypertensive heart and chronic kidney disease with heart failure and stage 1 through stage 4 chronic kidney disease, or unspecified chronic kidney disease (principal); N17.9 Acute kidney failure, unspecified; I50.9 Heart failure, unspecified; I25.10 Atherosclerotic heart disease of native coronary artery without angina pectoris; N18.3 Chronic kidney disease, stage 3 (moderate); Z90.5 Acquired absence of kidney; Z85.528 Personal history of other malignant neoplasm of kidney; E11.22 Type 2 diabetes mellitus with diabetic chronic kidney disease; Z91.14 Patient's other noncompliance with medication regimen; E11.65 Type 2 diabetes mellitus with hyperglycemia; I42.8 Other cardiomyopathies; Z79.899 Other long term (current) drug therapy; E11.40 Type 2 diabetes mellitus with diabetic neuropathy, unspecified; Z23 Encounter for immunization
CPT/HCPCS: 12345; 36415; 36416; 51702; 71046; 76770; 76857; 76870; 78452; 80048; 80053; 80061; 80306; 80307; 81003; 82009; 82436; 82570; 82962; 83036; 83735; 83880; 84133; 84300; 84484; 85025; 87070; 87077; 87086; 87186; 87205; 87491; 87591; 90732; 93005; 93017; 93306; 94664; 96372; 96374; 96375; 99284; A9500; G0378; J0696; J1120; J1644; J1815; J1940; J2270; J2405; J2785

== ENCOUNTER 2019-09-09 06:47 | Outpatient (CLI) | payer SELFPAY ==
[2019-09-09 06:53] VITALS: BMI 45.2
--- NOTE | 2019-09-09 07:15 | SUR.PREOP ---
PRE STRESS NOTE Patient stated during prep that he had this test in July. I looked up the reports to verify and this is in fact the exact test he had ordered and completed in July of this year. Dr Kendrick notified and agrees the patient does not need this exam today. Patient updated. Discharged in stable condition.
--- NOTE | 2019-09-09 13:39 | PC.SOCIAL ---
Sent recent stress test results to PCP and called to update that fax is being sent. Verification received of successful transmission.
== END 2019-09-09 06:48 | disposition home or self-care (01) ==
LOC: CDL 06:51
PROVIDERS: Family Provider Internal Medicine; PCP Internal Medicine; Visit Provider Student in an Organized Health Care Education/Training Program
DX: Z76.89 Persons encountering health services in other specified circumstances (principal)

== ENCOUNTER → 2019-09-16 09:57 | Outpatient (BNVA) | payer MEDICAID, SELFPAY | PROVIDERS: PCP Internal Medicine; Referring Provider Internal Medicine; Visit Provider Podiatrist Foot & Ankle Surgery | DX: E11.8 Type 2 diabetes mellitus with unspecified complications (principal); R09.89 Other specified symptoms and signs involving the circulatory and respiratory systems; S92.332A Displaced fracture of third metatarsal bone, left foot, initial encounter for closed fracture; S92.342A Displaced fracture of fourth metatarsal bone, left foot, initial encounter for closed fracture; S92.352A Displaced fracture of fifth metatarsal bone, left foot, initial encounter for closed fracture; X58.XXXA Exposure to other specified factors, initial encounter | CPT/HCPCS: 73630 ==

== ENCOUNTER 2019-09-16 13:52 | Outpatient (CLI) | payer MEDICAID, SELFPAY | END 2019-09-16 13:53 | disposition home or self-care (01) | LOC: SPT 13:52 | PROVIDERS: Family Provider Internal Medicine; PCP Internal Medicine; Visit Provider Podiatrist Foot & Ankle Surgery | DX: S92.222D Displaced fracture of lateral cuneiform of left foot, subsequent encounter for fracture with routine healing (principal); X58.XXXD Exposure to other specified factors, subsequent encounter | CPT/HCPCS: L4361 ==

== ENCOUNTER 2019-09-23 20:00 | Outpatient (CLI) | payer MEDICAID, SELFPAY | END 2019-09-23 20:01 | disposition home or self-care (01) | LOC: SLEEP 09-24 09:28 | PROVIDERS: Family Provider Internal Medicine; PCP Internal Medicine; Visit Provider Internal Medicine | DX: G47.33 Obstructive sleep apnea (adult) (pediatric) (principal) | CPT/HCPCS: 95810; 95811 ==

== ENCOUNTER 2019-10-01 13:32 | Outpatient (CLI) | payer MEDICAID, SELFPAY ==
--- NOTE | 2019-10-01 13:30 | USCV_ITS ---
Akil Velasco Age: 49 Gender: M : 1970 Exam Date: 10/01/2019 13:31 Ordering Phys: Godwin Torres DPM Technologist: Exam [place] [facility] [place] Indication: PAD RIGHT LEFT Brachial 196.00 mmHg Brachial 181.00 mmHg Pressure (mmHg) Waveform Pressure (mmHg) Waveform 99.00 Pre-Exercise Toe Pressure 110.00 0.51 Pre-Exercise Toe/Brachial Index 0.56 FINDINGS Supernormal resting ABIs bilaterally Diminished resting TBIs bilaterally Near normal PVR waveforms CONCLUSIONS Possible mild to moderate peripheral artery disease bilaterally, involving the distal vessels. Dr Shirin Kendrick MD FACC (Electronically Signed) Final Date: 02 October 2019 08:48 S
== END 2019-10-01 13:33 | disposition home or self-care (01) ==
LOC: US 13:35
PROVIDERS: Family Provider Internal Medicine; PCP Internal Medicine; Visit Provider Podiatrist Foot & Ankle Surgery
DX: I73.9 Peripheral vascular disease, unspecified (principal); R09.89 Other specified symptoms and signs involving the circulatory and respiratory systems
CPT/HCPCS: 93923

== ENCOUNTER 2019-10-04 14:33 | Emergency (ER) | payer MEDICAID, SELFPAY | END 2019-10-04 18:41 | disposition admitted as inpatient to this hospital (09) | LOC: ER 11-14 06:43 | PROVIDERS: Emergency Provider Family Medicine; Family Provider Internal Medicine; PCP Internal Medicine | DX: Z01.89 Encounter for other specified special examinations (principal) | CPT/HCPCS: 36415; 36600; 71045; 80051; 80053; 82810; 83880; 83986; 84484; 85025; 87040; 93005; 94660; 96365; 96375; 99283; 99285; J1940 ==

== ENCOUNTER 2019-10-04 14:33 | Inpatient (IN) | payer MEDICAID, SELFPAY ==
[2019-10-04] VITALS (21 sets, daily range): BP systolic 127–166; BP diastolic 76–103; PULSE 56–68; RESP 13–28; TEMP 36.8–37.2; O2SAT 88–100; BMI 44.9
--- NOTE | 2019-10-04 14:39 | ED_ITS ---
Entered by Sean Centeno, acting as scribe for Jerry Bradford DO HPI - General Adult General: Chief complaint: Shortness of Breath/Dyspnea Stated complaint: CHF; COPD Time Seen by Provider: 10/04/19 14:43 History of Present Illness: HPI narrative: 49 yo male presents with shortness of breath. Pt states that he feels weak. Pt states that he feels like he is retaining water, he has taken lasix and that doesn't seem to be helping. Pt states that he is usually on 3 liters of O2 at all times. Pt states that his scrotum is swollen due to the fluid retention. MD complaint: shortness of breath Associated symptoms: Reports dyspnea and nausea; Deny chest pain, malaise, rash or vomiting Review of Systems Const: Denies: fever, chills, body aches, change in appetite, fatigue or malaise ENMT: Denies: throat pain, ear pain, nasal discharge or nasal congestion Card: Reports: edema, shortness of breath on exertion and shortness of breath when lying down; Denies: chest pain Resp: Reports: shortness of breath; Denies: productive cough or non-productive cough GI: Reports: nausea and bloating; Denies: abdominal pain, vomiting, vomiting blood, coffee grounds in vomit, diarrhea, constipation, blood in stool or black tarry stool : Reports: scrotal swelling (Severe); Denies: flank pain, painful urination, urinary frequency or urinary urgency Skin/Breast: Reports: other (Changes of chronic venous stasis edema); Denies: rash or itching Neuro: Reports: difficulty walking and other (weakness ) PFS ED PFSH: Medical History Lyyae-[id number] kidney injury Anasarca Cancer Cataract (lens) fragments in eye following cataract surgery, bilateral CKD stage 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 Congestive cardiac failure Diabetes Fracture of fifth metatarsal bone of left foot Fracture of fourth metatarsal bone of left foot Hypertension Laceration Neuropathy Non-ischemic cardiomyopathy PVD (peripheral vascular disease) Type 2 diabetes mellitus with diabetic polyneuropathy Surgical History H/O partial nephrectomy bilateral Family History Father Diabetes Mother Diabetes Grandfather Diabetes Cancer Other Hyperlipidemia Social History Smoking and tobacco status: never smoked Alcohol intake: current Alcohol intake frequency: holidays/special occasions only Lives independently: Yes Household members: spouse Housing: House Current occupational status: unemployed Physical Exam Const: COMMON NORMALS: oriented x3 GENERAL APPEARANCE: cooperative NUTRITIONAL APPEARANCE: obese morbidly obese ORIENTATION/CONSCIOUSNESS: Yes awake, Yes oriented to person, Yes oriented to place and Yes oriented to time HENMT: COMMON NORMALS: normocephalic, head/scalp atraumatic, hearing grossly normal bilaterally, external ears normal, EAC's normal, TM's normal bilaterally, nasal mucous membranes and turbinates normal, moist oral mucous membranes and oropharynx normal HEAD & SCALP: normocephalic and atraumatic NOSE: nasal mucous membranes and turbinates normal EXTERNAL EAR: Yes external ears normal EXTERNAL AUDITORY CANAL: EAC's normal TYMPANIC MEMBRANE: TM's normal bilaterally Eye: COMMON NORMALS: PERRL, EOMs intact bilaterally, conjunctivae normal and no scleral icterus CONJUNCTIVA: Yes conjunctivae normal PUPIL: Yes PERRL Neck/C-Spine: COMMON NORMALS: full ROM, no lymphadenopathy, supple and no JVD Lymph: LYMPHATIC: no lymphadenopathy noted and no lymphedema noted Resp: EFFORT & INSPECTION: Yes tachypneic AUSCULTATION: rales bilateral and localized (Bases) and diminished lung sounds diffuse Cardio: COMMON NORMALS: no JVD, regular rate, regular rhythm and no murmurs RATE: regular rate RHYTHM: regular rhythm GI: COMMON NORMALS: soft to palpation and no hepatosplenomegaly AUSCULTATION: Yes normoactive bowel sounds PALPATION: Yes soft, No tender, No guarding and Yes no hepatosplenomegaly Extremity: GENERAL: Yes edema (+3) OTHER: Chronic changes of the lower extremities is not warm to the touch there is some scaling. 3+ edema noted. Neuro: COMMON NORMALS: oriented x3 SENSORIUM/ORIENTATION: Yes oriented to person, Yes oriented to place and Yes oriented to time Skin: COMMON NORMALS: no rashes or lesions noted GENERAL SKIN EXAM: no rashes or lesions noted Course ED course: Patient has a mild respiratory acidosis we did put him on BiPAP and will admit him to the ICU and attempt diuresis. Discussed with hospitalist. Vital Signs: Vital signs: Vital Signs Temperature 98.9 F 10/05/19 11:00 Pulse Rate 73 10/05/19 11:00 Respiratory Rate 12 10/05/19 11:00 Blood Pressure 170/94 10/05/19 11:00 Pulse Oximetry 90 10/05/19 11:00 MDM - General Adult Lab Data: Labs: Lab Results 10/04/19 10/04/19 10/04/19 Range/Units 15:14 15:14 15:14 WBC 9.5 (4.0-10.0) 10^3/ uL RBC 3.92 L (4.1-5.3) 10^6/u L Hgb 10.9 L (11.7-16.6) g/dL Hct 37.0 L (42.0-52.0) % MCV 94.4 H (80-94) fL MCH 27.8 L (28.0-34.0) pg MCHC 29.5 L (30.0-36.0) g/dL RDW 14.0 (12.1-15.1) % Plt Count 242 (130-400) 10^3/c mm MPV 10.6 H (7.4-10.4) fL Neut % (Auto) 83.2 % Lymph % (Auto) 7.5 % [place] % (Auto) 6.8 % Eos % (Auto) 1.8 % Baso % (Auto) 0.3 % Neut # (Auto) 7.9 H (1.8-7.7) 10^3/u L Lymph # (Auto) 0.7 L (0.8-4.8) 10^3/u L [place] # (Auto) 0.7 (0.2-0.9) 10^3/u L Eos # (Auto) 0.2 (0.0-0.8) 10^3/u L Baso # (Auto) 0.0 (0.0-0.1) 10^3/u L Nucleated RBC % (a uto) 0 % Nucleated RBCs # 0.0 /100WBC Specimen Type Sample Site ABG pH (7.35-7.45) ABG pCO2 (35-45) mmHg ABG pO2 (80.0-100.0) mmH g ABG HCO3 (22-26) mmol/L ABG O2 Saturation ABG Base Excess (-2.0-2.0) mmol/ L Jesus Test A-a O2 Gradient Hematocrit (42-52) % Hgb O2 Saturation (95-100) % Carboxyhemoglobin (0.4-20.1) %THgb Methemoglobin (0.4-1.5) % Total Hemoglobin (14-18) g/dL Ionized Calcium (1.1-1.4) mmol/L O2 Delivery Device Lead Clinical Research Coordinator ID Sodium 138 (136-145) mmol/L Potassium 5.3 H (3.5-5.1) mmol/L Chloride 99 (98-107) mmol/L Carbon Dioxide 30 H (22-29) mmol/L Anion Gap 14.3 (5-19) BUN 66 H (6-20) mg/dL Creatinine 2.6 H (0.7-1.2) mg/dL GFR Calculation 26.4 L (90-130) mL/min Glucose 135 H (65-115) mg/dL Calcium 9.2 (8.5-10.5) mg/dL Total Bilirubin 0.2 (0.15-1.2) mg/dL AST 35 (0-40) U/L ALT 36 (0-41) U/L Alkaline Phosphata se 57 (40-130) IU/L Troponin T Baselin e 107 H* (0-15) ng/mL NT-Pro-B Natriuret Pep 4704 H (0-125) pg/mL Total Protein 6.8 (6.6-8.7) g/dL Albumin 2.8 L (3.5-5.2) g/dL Globulin 4.0 (1.3-4.6) g/dL 10/04/19 Range/Units 17:00 WBC (4.0-10.0) 10^3/ uL RBC (4.1-5.3) 10^6/u L Hgb (11.7-16.6) g/dL Hct (42.0-52.0) % MCV (80-94) fL MCH (28.0-34.0) pg MCHC (30.0-36.0) g/dL RDW (12.1-15.1) % Plt Count (130-400) 10^3/c mm MPV (7.4-10.4) fL Neut % (Auto) % Lymph % (Auto) % [place] % (Auto) % Eos % (Auto) % Baso % (Auto) % Neut # (Auto) (1.8-7.7) 10^3/u L Lymph # (Auto) (0.8-4.8) 10^3/u L [place] # (Auto) (0.2-0.9) 10^3/u L Eos # (Auto) (0.0-0.8) 10^3/u L Baso # (Auto) (0.0-0.1) 10^3/u L Nucleated RBC % (a uto) % Nucleated RBCs # /100WBC Specimen Type Arterial Sample Site Radial, left ABG pH 7.25 L (7.35-7.45) ABG pCO2 70.4 H* (35-45) mmHg ABG pO2 74.8 L (80.0-100.0) mmH g ABG HCO3 30.9 H (22-26) mmol/L ABG O2 Saturation 92.0 ABG Base Excess 2.1 H (-2.0-2.0) mmol/ L Jesus Test Pos A-a O2 Gradient Not Reportable Hematocrit 35.0 L (42-52) % Hgb O2 Saturation 91.0 L (95-100) % Carboxyhemoglobin 0.6 (0.4-20.1) %THgb Methemoglobin 0.6 (0.4-1.5) % Total Hemoglobin 11.4 L (14-18) g/dL Ionized Calcium 1.2 (1.1-1.4) mmol/L O2 Delivery Device Not Reportable Lead Clinical Research Coordinator ID Ed Sodium 139.0 (136-145) mmol/L Potassium 4.8 (3.5-5.1) mmol/L Chloride (98-107) mmol/L Carbon Dioxide (22-29) mmol/L Anion Gap (5-19) BUN (6-20) mg/dL Creatinine (0.7-1.2) mg/dL GFR Calculation (90-130) mL/min Glucose 100.0 (65-115) mg/dL Calcium (8.5-10.5) mg/dL Total Bilirubin (0.15-1.2) mg/dL AST (0-40) U/L ALT (0-41) U/L Alkaline Phosphata se (40-130) IU/L Troponin T Baselin e (0-15) ng/mL NT-Pro-B Natriuret Pep (0-125) pg/mL Total Protein (6.6-8.7) g/dL Albumin (3.5-5.2) g/dL Globulin (1.3-4.6) g/dL Imaging Data^: CXR: Radiologist's impression: Ordering Provider/Ordering MD: Jerry Bradford DO Date of Service: 10/04/19 Procedure(s): XR chest 1V portable [id number] Accession Number(s): [id number] Report Number: [id number] WS: [id number] XR chest 1V portable [id number] REASON FOR EXAM: dyspnea/cough FINDINGS: Gross cardiomegaly is seen the heart is larger than previous exam August 11, 2019. No pulmonary edema or pneumonia. The hilum and apices are normal. No osseous abnormalities. XR/XR chest 1V portable [id number] IMPRESSION: Cardiomegaly suggesting congestive cardiomyopathy. Dictated By:Jas Levin DO Discharge Plan Discharge Patient Disposition: Admitted As Inpatient Admit Provider: Julio C Bal Clinical Impression: Acute hypercapnic respiratory failure, CHF exacerbation, Hypertension, CKD stage 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, Uncontrolled diabetes mellitus, Non- ischemic cardiomyopathy Condition: Stable Interventions: ED Discharge Assessment Last Done: 10/04/19 17:44 Discharge Date/Time: 10/04/19 18:41 Coding Level of Care Code ED Entry Level Financial Analyst for Chg Fwd Exam Comprehensive The documentation recorded by the Jacobo guillory Kialy, accurately reflects the service I personally performed and the decisions made by Suzette mehta Curtis L, DO Oct 04, 2019 14:33
--- NOTE | 2019-10-04 14:51 | ECG_ITS ---
Measurements Intervals [place] Rate: 62 P: 53 AR: 191 QRS: 87 QRSD: 106 T: 64 QT: 445 QTc: 455 SINUS RHYTHM LOW QRS VOLTAGE IN EXTREMITY LEADS [QRS DEFLECTION < 0.5 mV IN LIMB LEADS] PATTERN CONSISTENT WITH PULMONARY DISEASE Compared to ECG 08/11/2019 18:40:12 Low QRS voltage now present T-wave abnormality no longer present Electronically Signed On 10-04-2019 19:05:22 EDGER RUNNER by Chris Goldstein M.D. [email or web address]
[2019-10-04] MEDS: FUROsemide 10 mg/mL SDV 10mL 80 MG IVP (15:15)
[2019-10-04 15:29] LABS: Basophils % 0.3 %; Eosinophils # 0.2 10^3/uL (0.0-0.8); Eosinophils % 1.8 %; Hemoglobin 10.9 g/dL (11.7-16.6); Lymphocytes # 0.7 10^3/uL (0.8-4.8); Lymphocytes % 7.5 %; Mean Corpuscular HGB Conc 29.5 g/dL (30.0-36.0); Mean Corpuscular Hemoglobin 27.8 pg (28.0-34.0); Mean Corpuscular Volume 94.4 fL (80-94); Mean Platelet Volume 10.6 fL (7.4-10.4); Monocytes # 0.7 10^3/uL (0.2-0.9); Monocytes % 6.8 %; Neutrophils # 7.9 10^3/uL (1.8-7.7); Neutrophils % 83.2 %; Nucleated Red Blood Cells % 0 %; Platelet Count 242 10^3/cmm (130-400); Red Blood Count 3.92 10^6/uL (4.1-5.3); White Blood Count 9.5 10^3/uL (4.0-10.0)
[2019-10-04 16:02] LABS: Alanine Aminotransferase 36 U/L (0-41); Albumin Level 2.8 g/dL (3.5-5.2); Alkaline Phosphatase 57 IU/L (40-130); Anion Gap 14.3 (5-19); Aspartate Amino Transferase 35 U/L (0-40); Blood Urea Nitrogen 66 mg/dL (6-20); Calcium 9.2 mg/dL (8.5-10.5); Carbon Dioxide 30 mmol/L (22-29); Chloride 99 mmol/L (98-107); Glomerular Filtration Rate 26.4 mL/min (90-130); Glucose 135 mg/dL (65-115); NT Pro B Type Natriuretic Pept 4704 pg/mL (0-125); Potassium 5.3 mmol/L (3.5-5.1); Sodium 138 mmol/L (136-145); Total Bilirubin 0.2 mg/dL (0.15-1.2); Total Protein 6.8 g/dL (6.6-8.7)
--- NOTE | 2019-10-04 16:05 | XR_ITS ---
WS: [id number] XR chest 1V portable [id number] REASON FOR EXAM: dyspnea/cough FINDINGS: Gross cardiomegaly is seen the heart is larger than previous exam August 11, 2019. No pulm onary edema or pneumonia. The hilum and apices are normal. No osseous abnormalities. XR/XR chest 1V portable [id number] IMPRESSION: Cardiomegaly suggesting congestive cardiomyopathy.
[2019-10-04 16:06] LABS: Troponin(5th) Baseline 107 ng/mL (0-15)
[2019-10-04] MEDS: TRAMadol 50 mg Tablet PO (16:33)
[2019-10-04 17:07] LABS: ABG PH Result 7.25 (7.35-7.45); Base Excess ABG 2.1 mmol/L (-2.0-2.0); Blood Gas Allen Test Pos; Blood Gas Sample Site Radial, left; Blood Gas Sample Type Arterial; Carboxyhemoglobin 0.6 %THgb (0.4-20.1); HCO3 ABG 30.9 mmol/L (22-26); Ionized Calcium Level - ABG 1.2 mmol/L (1.1-1.4); Methemoglobin 0.6 % (0.4-1.5); PO2 ABG 74.8 mmHg (80.0-100.0); Potassium Level - ABG 4.8 mmol/L (3.5-5.0); Total Hemoglobin 11.4 g/dL (14-18)
[2019-10-04 17:08] LABS: ABG PCO2 70.4 mmHg (35-45)
[2019-10-04] MEDS: cefTRIAXone 1,000 MG in sodium chloride 0.9% (plus) 50 ML 100 MG IV (17:30)
[2019-10-04 17:49] LABS: Troponin 5 2HR Delta 5.1 ABS# (0-10)
[2019-10-04 18:00] LABS: Troponin 5 2HR 112.1 ng/mL (0-15)
--- NOTE | 2019-10-04 18:13 | CTR_ITS ---
PROCEDURE INFORMATION: Exam: CT Chest Without Contrast Exam date and time: 10/04/2019 6:21 PM Age: 49 years old Clinical indication: Bloating; Shortness of breath; Prior surgery; Surgery date: 6+ months; Surgery type: B partial nephrectomy; Patient HX: Worsening SOB, abd distention and fluid retention x 6 weeks; Additional info: Abdominal distention TECHNIQUE: Imaging protocol: Computed tomography of the chest without contrast. Total DLP: 3016.88 mGy-cm Radiation optimization: All CT scans at this facility use at least one of these dose optimization techniques: automated exposure control; mA and/or kV adjustment per patient size (includes targeted exams where dose is matched to clinical indication); or iterative reconstruction. COMPARISON: CR XR chest 1V portable [id number] 10/04/2019 4:04 PM FINDINGS: Lungs: Patchy subsegmental alveolar airspace disease involving the bilateral lower lobes consistent with pneumonia. Air bronchograms. Pleural space: Unremarkable. No pneumothorax. No pleural effusion. Heart: Cardiomegaly with moderate three-vessel coronary artery disease. Aorta: The thoracic aorta is nonaneurysmal. Mild arterial sclerotic disease. Lymph nodes: Unremarkable. No enlarged lymph nodes. Bones/joints: No visible active musculoskeletal pathology. Soft tissues: Diffuse anasarca. Other findings: Marked obesity. This increases quantum mottle artifact. IMPRESSION: 1. Bilateral lower lobe pneumonia. 2. Diffuse anasarca. 3. Marked obesity. PROCEDURE INFORMATION: Exam: CT Abdomen And Pelvis Without Contrast Exam date and time: 10/04/2019 6:21 PM Age: 49 years old Clinical indication: Bloating; Shortness of breath; Prior surgery; Surgery date: 6+ months; Surgery type: B partial nephrectomy; Patient HX: Worsening SOB, abd distention and fluid retention x 6 weeks; Additional info: Abdominal distention TECHNIQUE: Imaging protocol: Computed tomography of the abdomen and pelvis without contrast. Total DLP: 3016.88 mGy-cm Radiation optimization: All CT scans at this facility use at least one of these dose optimization techniques: automated exposure control; mA and/or kV adjustment per patient size (includes targeted exams where dose is matched to clinical indication); or iterative reconstruction. COMPARISON: CR XR chest 1V portable [id number] 10/04/2019 4:04 PM FINDINGS: Liver: Hepatomegaly. Gallbladder and bile ducts: Gallbladder free of cholelithiasis. No visible intra or extrahepatic biliary ectasia. Pancreas: Pancreas unremarkable. No visible pancreatic ductal ectasia. Spleen: Spleen unremarkable. Adrenals: Adrenal glands unremarkable. Kidneys and ureters: Transverse rotation of the right kidney which is a normal anatomical variant. Kidneys otherwise unremarkable. No hydronephrosis or perinephric fluid. Surgical clip superior pole right kidney. Stomach and bowel: Nonobstructive bowel pattern. Diverticulosis coli without evidence for diverticulitis. No evidence for adynamic or reactive ileus. Appendix: No evidence of appendicitis. Intraperitoneal space: No visible intraperitoneal ascites. No free fluid the pelvis. Vasculature: The abdominal aorta is nonaneurysmal. Mild arterial sclerotic disease. Lymph nodes: Unremarkable. No enlarged lymph nodes. Bladder: Distended urinary bladder. Reproductive: Unremarkable as visualized. Bones/joints: Degenerative disease and degenerative disc disease L5/S1 with mild vacuum disc phenomenon. No acute osseous abnormality identified. Soft tissues: Diffuse anasarca. Other findings: Marked obesity. This increases quantum mottle artifact. CT/CT chest abd pel wo con IMPRESSION: 1. Diffuse anasarca. 2. Hepatomegaly. 3. Marked obesity. 4. No other evidence of active or acute abdominal or pelvic pathologic process. 5. Other non urgent/nonemergent, and chronic findings detailed in text above. Radiation Dose CTDIVOL = (mGy): DLP = 3016.88~3016.88 (mGy-cm)
--- NOTE | 2019-10-04 18:23 | P.HP_ITS ---
Providers/Chief Complaint Admitting Physician: Julio C Bal MD Primary Care Provider: Sulma Weztel MD Chief Complaint: CHF; COPD History of Present Illness Akil Velasco is a 49 year old male poorly controlled insulin-dependent type 2 diabetes mellitus, hypertension, congestive heart failure, CKD stage III, diabetic peripheral neuropathy, recently diagnosed severe obstructive sleep apnea who presents to the emergency room due to complaints of worsening shortness of breath, worsening anasarca, worsening lower extremity edema, worsening scrotal swelling. Patient states that over the last few weeks, he has had increased shortness of breath, shortness of breath with minimal exertion, sleeps on the couch, has orthopnea, paroxysmal nocturnal dyspnea, worsening anasarca, worsening scrotal edema. Patient states his primary care physician has increased his dose of Bumex to 2 mg once daily, and is taking 40 mg of Lasix twice daily, without any significant improvement. Patient states that he has followed up with cardiology, and they are thinking about repeating an ec hocardiogram in 2 months. Patient also states that he recently had a sleep study done, which showed severe sleep apnea, has not received his CPAP machine as of yet. No recent fevers, chills, nausea, vomiting, cough, lightheadedness, dizziness. Review of Systems Const: Denies: fever, chills, fatigue or malaise Eyes: Denies: change in vision or blurry vision ENMT: Denies: nasal congestion Resp: Reports: shortness of breath; Denies: productive cough, non-productive cough or wheezing GI: Denies: abdominal pain, nausea, vomiting, vomiting blood, diarrhea, constipation, blood in stool or black tarry stool : Denies: flank pain, difficulty urinating, painful urination or urinary frequency Musc: Denies: neck pain or back pain Skin/Breast: Denies: rash Neuro: Denies: headache, dizziness or vertigo Psych: Denies: anxiety or depression Endo: Denies: excessive urination or excessive thirst Medications/Allergies Allergies Allergy/AdvReac Type Severity Reaction Status Date / Time No Known Allergies Allergy Verified 09/16/19 09:25 Additional Medication Information Additional Medication Information: Amlodipine 2.5 mg once daily Aspirin 325 mg once daily Atorvastatin 40 mg once daily Bumex 2 mg p.o. daily Coreg 25 mg p.o. twice daily Celexa 40 mg p.o. daily Lasix 80 mg daily Gabapentin Lantus 30 units in the morning Humalog sliding scale PFSH Acute PFSH: Medical History [id number] kidney injury Anasarca Cancer Cataract (lens) fragments in eye following cataract surgery, bilateral CKD stage 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 Congestive cardiac failure Diabetes Fracture of fifth metatarsal bone of left foot Fracture of fourth metatarsal bone of left foot Hypertension Laceration Neuropathy Non-ischemic cardiomyopathy PVD (peripheral vascular disease) Type 2 diabetes mellitus with diabetic polyneuropathy Surgical History H/O partial nephrectomy bilateral Social History Smoking and tobacco status: never smoked Alcohol intake: current Alcohol intake frequency: holidays/special occasions only Lives independently: Yes Household members: spouse Housing: House Current occupational status: unemployed Vitals/I&O/Wt Last Vital Signs Temp 98.9 F 10/04/19 18:00 Pulse 62 10/04/19 18:04 Resp 24 H 10/04/19 18:00 BP 166/95 10/04/19 18:00 Pulse Ox 100 10/04/19 18:04 10/04/19 10/04/19 10/04/19 06:59 14:59 22:59 Intake Total 50 / 50 Balance 50 / 50 Weight last 48 hrs Weight 154.221 kg Physical Exam Const: COMMON NORMALS: no apparent distress and oriented x3 GENERAL APPEARANCE: cooperative and comfortable HENMT: COMMON NORMALS: normocephalic HEAD & SCALP: normocephalic Eye: COMMON NORMALS: PERRL and EOMs intact bilaterally GENERAL EYE: normal appearance of both eyes PUPIL: Yes PERRL Neck/C-Spine: COMMON NORMALS: full ROM, no lymphadenopathy, no JVD and thyroid normal THYROID: thyroid normal Lymph: LYMPHATIC: no lymphadenopathy noted Resp: COMMON NORMALS: normal respiratory effort, no retractions, no use of accessory muscles and clear to auscultation bilaterally AUSCULTATION: clear to auscultation bilaterally Cardio: COMMON NORMALS: no JVD, regular rate, regular rhythm, S1 normal heart sound, S2 normal heart sound, no gallops, no clicks and no murmurs RATE: regular rate RHYTHM: regular rhythm HEART SOUNDS: S1 normal and S2 normal GI: COMMON NORMALS: normal to inspection, nondistended, normoactive bowel sounds, soft to palpation and non-tender INSPECTION: Yes anasarca present PALPATION: Yes soft and Yes no hepatosplenomegaly Extremity: COMMON NORMALS: normal to inspection, full ROM and no pedal edema Neuro: COMMON NORMALS: oriented x3, CN's II-XII intact bilaterally, moves all extremities and no focal motor deficits Psych: COMMON NORMALS: mental status grossly normal, thought process normal and cooperative THOUGHT PROCESS: normal thought process Data : 10/04/19 15:14 10/04/19 15:14 Micro: Microbiology 10/04/19 15:14 Blood Culture - Preliminary Blood SPECIMEN COLLECTED 10/04/19 17:21 Blood Culture - Preliminary Blood SPECIMEN COLLECTED A&P Assessment and plan (1) Acute hypercapnic respiratory failure: -Secondary to congestive heart failure, obstructive sleep apnea, obesity hypoventilation syndrome Plan: -Admit to the intensive care unit -Place BiPAP, BiPAP should be used throughout the night -Continue nebulizer therapy, no history of COPD, all of will avoid steroids -Unfortunately patient's creatinine is 2.6, has KAYLEEN on CKD, his primary care physician has increase Lasix to 80 daily with Bumex 2 mg daily, received 80 mg of Lasix in the ER, will place [place], monitor urine output, strict I's and O's, limit fluid intake to 1500 cc/day, will decide on diuresis tomorrow based on creatinine but I feel the patient will significantly benefit from BiPAP in the interim -CT chest abdomen ordered Status: Acute Code(s): J96.02 - Acute respiratory failure with hypercapnia (2) Obstructive sleep apnea: -Patient's sleep study shows extreme sleep apnea, severe nocturnal hypoxemia, chronic respiratory failure -Patient will require a CPAP machine JOSIE Status: Acute Code(s): G47.33 - Obstructive sleep apnea (adult) (pediatric) (3) Restrictive lung disease: 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, 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, 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 -Will require a pulmonary function testing as outpatient Status: Acute Code(s): J98.4 - Other disorders of lung (4) Acute kidney injury superimposed on chronic kidney disease: Baseline creatinine is 1.7 Creatinine today is one 2.6 Patient already received 80 mg Lasix in the ER Hold off on diuresis, monitor urine output, creatinine Status: Acute Code(s): N17.9 - Acute kidney failure, unspecified; N18.9 - Chronic kidney disease, unspecified (5) Anasarca: Secondary to fluid overload Status: Acute Code(s): R60.1 - Generalized edema (6) Scrotal swelling: Secondary to fluid overload, scrotal elevation Status: Acute Code(s): N50.89 - Other specified disorders of the male genital organs (7) Hypertension: Status: Acute Code(s): I10 - Essential (primary) hypertension (8) CKD stage 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: Status: Acute Code(s): E11.22 - Type 2 diabetes mellitus with diabetic chronic kidney disease; N18.3 - Chronic kidney disease, stage 3 (moderate) (9) Uncontrolled diabetes mellitus: -High-dose sliding scale -Lantus 10 units in the morning Status: Acute Qualifiers: Diabetes mellitus type: type 2 Glycemic state: with hyperglycemia Qualified Code(s): E11.65 - Type 2 diabetes mellitus with hyperglycemia Code(s): E11.65 - Type 2 diabetes mellitus with hyperglycemia (10) Non-ischemic cardiomyopathy: Echocardiogram pending Status: Acute Code(s): I42.8 - Other cardiomyopathies (11) NSTEMI (non-ST elevated myocardial infarction): -Has 3 episodes of chest pain in the last 2 weeks, right-sided, nonradiating, associate with shortness of breath -Baseline troponin I 07, 120-minute 112.1, delta 5.1 -No active chest pain -No acute ST-T wave changes on EKG -Stress test on August 14, 2019 showed 1. Small size perfusion abnormality of moderate severity of apical anterior and apical lateral farias with improved tracer uptake on stress images. This is suggestive of attenuation artifact. 2. The left ventricular ejection fraction is severely reduced with a value of 25%. 3. Global hypokinesis more pronounced in apical farias. 4. No coronary ischemia based on the study. -Echocardiogram on August 28, 2019 was a difficult study given body habitus -Likely supply demand ischemia, type II NSTEMI from acute respiratory failure Plan: -Monitor for chest pain -Is on aspirin, statin -Morphine, oxygen, nitrates -Monitor serial EKGs, troponins, telemetry monitoring Status: Acute Code(s): I21.4 - Non-ST elevation (NSTEMI) myocardial infarction Attestations Medical Necessity Statement*: Patient requires hospitalization for acute respiratory failure, inpatient, greater than 2 midnights, Coding Level of Care Code Acute Caustic Room Operator for Chg Fwd Diagnoses Acute hypercapnic respiratory failure J96.02 Obstructive sleep apnea G47.33 Restrictive lung disease J98.4 Acute kidney injury superimposed on chronic kidney disease N17.9; N18.9 Anasarca R60.1 Scrotal swelling N50.89 Hypertension I10 CKD stage 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 E11.22; N18.3 Uncontrolled diabetes mellitus E11.65 Diabetes mellitus type: type 2 Glycemic state: with hyperglycemia Non-ischemic cardiomyopathy I42.8 NSTEMI (non-ST elevated myocardial infarction) I21.4
[2019-10-04 18:35] LABS: Blood Gas Operator Identificat ED
--- NOTE | 2019-10-04 20:51 | ECG_ITS ---
Measurements Intervals Anton Rate: 62 P: 45 TN: 192 QRS: 75 QRSD: 98 T: 48 QT: 431 QTc: 439 SINUS RHYTHM LOW QRS VOLTAGE [QRS DEFLECTION < 0.5/1.0 mV IN LIMB/CHEST LEADS] PATTERN CONSISTENT WITH PULMONARY DISEASE SEPTAL MYOCARDIAL INFARCTION [40+ ms Q WAVE IN V1/V2], PROBABLY OLD Compared to ECG 10/04/2019 17:02:47 Myocardial infarct finding now present Electronically Signed On 10-05-2019 19:51:19 CDT by Chris Goldstein M.D. [id number]
[2019-10-04] MEDS: enoxaparin 40 mg/0.4 mL Syringe SUBCUT (21:03)
[2019-10-04 21:40] LABS: Troponin 5 6HR 127.5 ng/mL (0-15); Troponin 5 6HR Delta 20.5 ng/L (0-12)
[2019-10-05] VITALS (28 sets, daily range): BP systolic 117–170; BP diastolic 59–99; PULSE 62–73; RESP 0–24; TEMP 36.6–37.2; O2SAT 76–100
--- NOTE | 2019-10-05 04:11 | PC.NURSE ---
to bring in patients Gabapentin for us to administer
[2019-10-05 05:18] LABS: Basophils % 0.5 %; Eosinophils # 0.3 10^3/uL (0.0-0.8); Eosinophils % 3.5 %; Hemoglobin 11.1 g/dL (11.7-16.6); Lymphocytes # 1.1 10^3/uL (0.8-4.8); Lymphocytes % 12.7 %; Mean Corpuscular HGB Conc 29.2 g/dL (30.0-36.0); Mean Corpuscular Hemoglobin 27.8 pg (28.0-34.0); Mean Platelet Volume 10.4 fL (7.4-10.4); Monocytes # 0.7 10^3/uL (0.2-0.9); Monocytes % 8.2 %; Neutrophils # 6.2 10^3/uL (1.8-7.7); Neutrophils % 74.9 %; Nucleated Red Blood Cells % 0 %; Platelet Count 244 10^3/cmm (130-400); Red Cell Distribution Width 14.1 % (12.1-15.1); White Blood Count 8.3 10^3/uL (4.0-10.0)
[2019-10-05 05:41] LABS: Alanine Aminotransferase 33 U/L (0-41); Albumin Level 2.7 g/dL (3.5-5.2); Alkaline Phosphatase 57 IU/L (40-130); Anion Gap 13.9 (5-19); Aspartate Amino Transferase 31 U/L (0-40); Blood Urea Nitrogen 61 mg/dL (6-20); Calcium 9.5 mg/dL (8.5-10.5); Carbon Dioxide 32 mmol/L (22-29); Chloride 100 mmol/L (98-107); Globulin 4.3 g/dL (1.3-4.6); Glomerular Filtration Rate 27.6 mL/min (90-130); Glucose 133 mg/dL (65-115); Magnesium 2.8 mg/dL (1.7-2.3); Phosphorus 5.5 mg/dL (2.5-4.5); Potassium 4.9 mmol/L (3.5-5.1); Sodium 141 mmol/L (136-145); Total Bilirubin 0.2 mg/dL (0.15-1.2)
[2019-10-05 05:43] LABS: Arterial Blood Gas Hematocrit 35.1 % (42-52); Base Excess ABG 3.9 mmol/L (-2.0-2.0); Blood Gas Allen Test Pos; Blood Gas Sample Site Radial, right; Blood Gas Sample Type Arterial; HCO3 ABG 31.9 mmol/L (22-26); PO2 ABG 76.5 mmHg (80.0-100.0)
[2019-10-05 05:56] LABS: Procalcitonin 0.31 ng/mL (0-0.5)
[2019-10-05] MEDS: aspirin 325 mg Tablet PO (08:11)
[2019-10-05] MEDS: multivitamin therapeutic Tablet 1 TAB PO (08:11)
[2019-10-05] MEDS: amlodipine 5 mg Tablet 2.5 MG PO (08:11)
[2019-10-05] MEDS: atorvastatin 40 mg Tablet PO (08:11)
[2019-10-05] MEDS: citalopram 20 mg Tablet 40 MG PO (08:11)
[2019-10-05] MEDS: insulin glargine 100 units/1 mL 30 UNIT SUBCUT (08:12)
[2019-10-05] MEDS: carvedilol 25 mg Tablet PO ×2 (08:12→17:32)
[2019-10-05] MEDS: cefTRIAXone 1,000 MG in sodium chloride 0.9% (plus) 50 ML 100 MG IV (08:13)
--- NOTE | 2019-10-05 08:32 | PM.PN ---
Subjective Subjective: Interval history: Akil reports he is still having some difficulty breathing. History and physical reviewed. No chest pain. Medications: Reviewed: Yes Vitals/I&O/Wt Last Vital Signs Temp 98.9 F 10/04/19 18:00 Pulse 68 10/05/19 07:46 Resp 9 L 10/05/19 07:00 BP 163/88 10/05/19 07:00 Pulse Ox 95 10/05/19 07:46 10/04/19 10/05/19 10/05/19 21:59 06:59 14:59 Intake Total Output Total Balance Weight last 48 hrs Weight 154.221 kg Physical Exam Narrative: EXAM NARRATIVE: General exam is a white male, on BiPAP, in mild respiratory distress Cardiovascular regular rate and rhythm without murmur Lungs with diminished breath sounds at the bases, few crackles Abdomen is soft obese with edema noted demonstrates Melgar Extremities 3+ edema left greater than right with some erythema on the left. Urinary Catheter Management^: Melgar: Cath Placed During This Visit: yes Reason for Continuing Indwelling Catheter: Accurate Measurement of Urinary Output in Critically Ill Patients Urinary Catheter Date of Insertion: 10/04/19 Urinary Catheter Time of Insertion: 18:45 Data : 10/05/19 05:07 10/05/19 05:07 Micro: Microbiology 10/04/19 15:14 Blood Culture - Preliminary Blood SPECIMEN COLLECTED 10/04/19 17:21 Blood Culture - Preliminary Blood SPECIMEN COLLECTED A&P Assessment and plan (1) Acute hypercapnic respiratory failure: Consistent with acute systolic and diastolic heart failure Initiate diuresis with Lasix 60 mg IV every 12 hours Monitor renal function closely Continue BiPAP for supportive care until breathing better with diuresis Status: Acute Code(s): J96.02 - Acute respiratory failure with hypercapnia (2) Obstructive sleep apnea: Recently had overnight sleep study. He requires CPAP for obstructive sleep apnea. Status: Acute Code(s): G47.33 - Obstructive sleep apnea (adult) (pediatric) (3) Restrictive lung disease: Likely secondary to obesity. Consider outpatient pulmonary function testing Status: Acute Code(s): J98.4 - Other disorders of lung (4) Acute kidney injury superimposed on chronic kidney disease: Baseline creatinine is 1.7 Monitor closely while diuresis is occurring History of partial nephrectomy x2 Status: Acute Code(s): N17.9 - Acute kidney failure, unspecified; N18.9 - Chronic kidney disease, unspecified (5) Anasarca: Diuresis as above Status: Acute Code(s): R60.1 - Generalized edema (6) Scrotal swelling: Secondary to fluid overload, scrotal elevation Status: Acute Code(s): N50.89 - Other specified disorders of the male genital organs (7) Hypertension: Continue home medication Status: Acute Code(s): I10 - Essential (primary) hypertension (8) CKD stage 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: Status: Acute Code(s): E11.22 - Type 2 diabetes mellitus with diabetic chronic kidney disease; N18.3 - Chronic kidney disease, stage 3 (moderate) (9) Uncontrolled diabetes mellitus: -High-dose sliding scale -Lantus 10 units in the morning Status: Acute Qualifiers: Diabetes mellitus type: type 2 Glycemic state: with hyperglycemia Qualified Code(s): E11.65 - Type 2 diabetes mellitus with hyperglycemia Code(s): E11.65 - Type 2 diabetes mellitus with hyperglycemia (10) Non-ischemic cardiomyopathy: Previous echocardiograms poor quality. Suspect this will be the same. Status: Acute Code(s): I42.8 - Other cardiomyopathies (11) NSTEMI (non-ST elevated myocardial infarction): Appears to be type II Status: Acute Code(s): I21.4 - Non-ST elevation (NSTEMI) myocardial infarction (12) Pneumonia: Initiate linezolid, Zosyn currently Culture Status: Acute Code(s): J18.9 - Pneumonia, unspecified organism (13) Left leg cellulitis: Awaiting venous duplex Initiate linezolid Status: Acute Code(s): L03.116 - Cellulitis of left lower limb Additional A&P Information Urinary retention. Melgar catheter inserted with 2 L evacuated. Initiate Flomax. Anemia Type 2 diabetes, sliding scale insulin Lovenox for DVT prophylaxis Attestations Medical Necessity Statement*: Needs continued hospitalization for treatment of heart failure with diuresis, considering his hypoxic respiratory failure requiring BiPAP. Critical Care Time: 34 minutes of critical care time spent considering his respiratory failure requiring BiPAP, need for IV diuresis, multiple comorbidities including renal failure. 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
[2019-10-05] MEDS: FUROsemide 10 mg/mL SDV 10mL 60 MG IVP ×2 (08:39→19:42)
[2019-10-05] MEDS: tamsulosin 0.4 mg Capsule PO (08:39)
[2019-10-05] MEDS: linezolid premix 600 MG/300 ML PREMIX 300 MG IV ×2 (08:40→21:14)
--- NOTE | 2019-10-05 08:57 | PC.NURSE ---
Dr. Vela here new orders obtained
--- NOTE | 2019-10-05 09:39 | PC.NURSE ---
pt here with patient got up to chair mod assist
[2019-10-05] MEDS: piperacillin-tazobactam 3.375 GM in sodium chloride 0.9% (plus) 50 ML IV ×2 (10:09→17:29)
--- NOTE | 2019-10-05 10:59 | PC.NURSE ---
Dr. Bills here to see patient , will await new orders
[2019-10-05 11:52] LABS: Glucose Point of Care 175 mg/dL (70-110)
[2019-10-05 11:55] LABS: Glucose Point of Care 85 mg/dL (70-110)
--- NOTE | 2019-10-05 11:59 | PC.CHAP ---
Pastoral Care Encounter/Spiritual Assessment Type of Contact [] Declined project manager/design manager visit [] Patient/Family/Request visit [] Outpatient visit [] Follow-up visit [] Physician referral [] Code/Alert [] Routine visit [] Staff referral [] Actively dying [] Patient sleeping [] Family support [] [] Out of room [] Palliative care [] [] Receiving care in room [] Pre-surgical visit [] Trauma [] Long length of stay [] ICU visit [] Other: Relational/Emotional Strength [] Patient feels connected with others/family/visitors/staff [] Distress [] Loneliness/isolation [] Abandonment Spirituality of Patient [x] Person of Lizabeth [x] Attends Gnosticist of their Lizabeth [x] Believes in Prayer [] Reads Bible or Orthodoxy materials [] There are Spiritual issues to be addressed Store Team Member Interventions [x] Prayer [x] Active listening [x] Non-anxious presence [x] Spiritual/emotional support [] Crisis/trauma care [] Spiritual counseling [] Bereavement support [] Provided bereavement packet [] Provided Bible/devotional materials [] Provided toy/stuffed animal, coloring book to patient or family member [] Provided Communion [] Anointing/[place] [] Salvation [x] Completed spiritual assessment [] Other: Impact on Illness or Injury [] Angry [] Fearful [] Anxious [] Often cries [] Exhaustion [] Unable to work [] Unable to attend temple [] Unable to walk/stand [] Unable to read [] Unable to drive [] Unable to eat/drink [] Unable to sleep [] Unable to be with family [] Patient intubated [] Other: Summary Chaplains prayed with patient. Time spent with patient 15 minutes.
[2019-10-05] MEDS: HYDROcodone-acetaminophen 5-325 mg Tablet 1 TAB PO (17:27)
--- NOTE | 2019-10-05 17:59 | USCV_ITS ---
Akil Velasco Age: 49 Gender: M : 1970 Exam Date: 10/05/2019 07:38 Ordering Phys: Jerry Bradford DO Technologist: Mary Cordero Exam Location: [facility] [place] Indication: Fluid overload, venous stasis edema BP: 168 / 94 HR: 62 Rhythm: Sinus Technical Quality: Technically difficult study MEASUREMENTS (Male / Female) Normal Values 2D ECHO LV Diastolic Diameter PLAX 5.5 cm 4.2 - 5.9 / 3.9 - 5.3 cm LV Systolic Diameter PLAX 3.7 cm LV Chamber Size 4.7 cm IVS Diastolic Thickness 1.6 cm 0.6 - 1.0 / 0.6 - 0.9 cm IVS Systolic Thickness 1.7 cm LVPW Diastolic Thickness 1.3 cm 0.6 - 1.0 / 0.6 - 0.9 cm LVPW Systolic Thickness 1.6 cm RV Chamber Size 2.7 cm LVOT Diameter 2.1 cm LV Ejection Fraction 2D Teich 60.9 % LA Diameter 5.4 cm LA Width 3.9 cm LA Height 6.3 cm RA Width 3.0 cm RA Height 5.9 cm Aorta at Sinotubular Diameter 3.3 cm M-MODE LV Diastolic Diameter MM 5.6 cm 4.2 - 5.9 / 3.9 - 5.3 cm LV Systolic Diameter MM 3.9 cm LV Ejection Fraction MM Teich 56.8 % IVS Diastolic Thickness MM 1.8 cm 0.6 - 1.0 / 0.6 - 0.9 cm IVS Systolic Thickness MM 2.0 cm LVPW Diastolic Thickness MM 1.6 cm 0.6 - 1.0 / 0.6 - 0.9 cm LVPW Systolic Thickness MM 2.3 cm Aortic Annulus Diameter 4.0 cm LA Ao Ratio MM 1.4 MV E Point Septal Separation 0.8 cm DOPPLER AV Peak Velocity 110.0 cm/s LVOT Peak Velocity 86.0 cm/s AV Area Cont Eq vti 3.0 cm squared AV Area Cont Eq pk 2.8 cm squared MV Area PHT 4.2 cm squared Mitral E to A Ratio 1.8 MV E' Velocity 8.0 cm/s Mitral E to MV E' Ratio 15.9 Mitral E to LV E' Lateral Ratio 14.8 Mitral E to LV E' Septal Ratio 17.3 TV Peak E Velocity 75.0 cm/s Right Atrial Pressure 15.0 mmHg PV Peak Velocity 73.0 cm/s RV Acceleration Time 0.1 s RV Ejection Time 0.3 s RV AcT/ET 0.3 FINDINGS Left Ventricle Normal left ventricular cavity size. Normal left ventricular systolic function. No regional wall motion abnormalities. Left ventricular ejection fraction is estimated at 56 %. Grade I/IV diastolic dysfunction (abnormal relaxation filling pattern), normal to mildly elevated filling pressures. Right Ventricle The right ventricle is normal in size and function. RVSP could not be calculated due to incomplete tricuspid regurgitation velocity profile. Right Atrium The right atrium is normal in size. Left Atrium Normal left atrial size. Mitral Valve Moderately thickened mitral valve. No mitral valve stenosis. Moderate mitral valve regurgitation. Aortic Valve Moderate aortic valve calcification. No aortic valve stenosis. No aortic valve regurgitation. Tricuspid Valve Structurally normal tricuspid valve without significant stenosis or regurgitation. Pulmonary artery systolic pressure is normal. Pulmonic Valve Structurally normal pulmonic valve without significant stenosis. There is no pulmonic regurgitation. Pericardium Normal pericardium without effusion. Aorta Normal ascending aorta dimension. CONCLUSIONS 1-Normal left ventricular cavity size. Normal left ventricular systolic function. No regional wall motion abnormalities. Left ventricular ejection fraction is estimated at 56 %. Grade I/IV diastolic dysfunction (abnormal relaxation filling pattern), normal to mildly elevated filling pressures. 2-Moderately thickened mitral valve. No mitral valve stenosis. Moderate mitral valve regurgitation. 3-Moderate aortic valve calcification. No aortic valve stenosis. No aortic valve regurgitation. 4-The right ventricle is normal in size and function. RVSP could not be calculated due to incomplete tricuspid regurgitation velocity profile. 5-There is no pericardial effusion. 6-Right atrial pressure is around5 mm of mercury. 7-Cannot compare it with prior echocardiogram due to suboptimal image quality in the previous exam Chris Goldstein MD (Electronically Signed) Final Date: 05 October 2019 15:32 S
--- NOTE | 2019-10-05 18:15 | USR_ITS ---
PROCEDURE INFORMATION: Exam: US Duplex Lower Extremity Veins Exam date and time: 10/04/2019 10:10 PM Age: 49 years old Clinical indication: Edema, localized; Lower extremity, bilateral; Additional info: Venous stasis edema, R/O dvt TECHNIQUE: Imaging protocol: Real-time duplex ultrasound of the Lower Extremities with 2-D pastrana scale, color Doppler flow and spectral waveform analysis with image documentation. Complete exam focused on the bilateral lower extremity veins. COMPARISON: No relevant prior studies available. FINDINGS: Right deep veins: Unremarkable. The common femoral, femoral, proximal profunda femoral and popliteal veins are patent without thrombus. Normal Doppler waveforms. Normal compressibility and/or augmentation response. Right superficial veins: Saphenofemoral junction is patent without thrombus. Left deep veins: Unremarkable. The common femoral, femoral, proximal profunda femoral and popliteal veins are patent without thrombus. Normal Doppler waveforms. Normal compressibility and/or augmentation response. Left superficial veins: Saphenofemoral junction is patent without thrombus. Soft tissues: Mild subcutaneous adipose edema. US/CV venous duplex [facility] [id number] IMPRESSION: No acute findings. No evidence of deep vein thrombosis.
[2019-10-05 18:26] LABS: Glucose Point of Care 85 mg/dL (70-110)
[2019-10-05] MEDS: enoxaparin 40 mg/0.4 mL Syringe SUBCUT (19:41)
[2019-10-05 21:27] LABS: Glucose Point of Care 121 mg/dL (70-110)
--- NOTE | 2019-10-05 21:41 | PC.NURSE ---
Dr. Johansen consulted about gabapentin dose after pt asked for evening dose. Kidney labs indicate it needs to be held entirely.
[2019-10-06] VITALS (25 sets, daily range): BP systolic 106–188; BP diastolic 69–133; PULSE 66–79; RESP 10–26; TEMP 36.9–37; O2SAT 84–97
[2019-10-06] MEDS: HYDROcodone-acetaminophen 5-325 mg Tablet 1 TAB PO ×3 (00:01→21:50)
[2019-10-06] MEDS: piperacillin-tazobactam 3.375 GM in sodium chloride 0.9% (plus) 50 ML IV ×2 (02:59→10:30)
[2019-10-06] MEDS: hyDRALAzine 20 mg/mL INJ 1 mL 5 MG IVP (04:33)
[2019-10-06 05:15] LABS: ABG PH Result 7.28 (7.35-7.45); Arterial Blood Gas Hematocrit 36.9 % (42-52); Base Excess ABG 3.5 mmol/L (-2.0-2.0); Blood Gas Allen Test Pos; Blood Gas Sample Site Radial, right; Blood Gas Sample Type Arterial; Oxygen Device NC; PO2 ABG 78.5 mmHg (80.0-100.0)
[2019-10-06 05:16] LABS: Basophils % 0.4 %; Eosinophils # 0.3 10^3/uL (0.0-0.8); Eosinophils % 3.8 %; Hematocrit 37.8 % (42.0-52.0); Hemoglobin 11.1 g/dL (11.7-16.6); Lymphocytes % 12.9 %; Mean Corpuscular HGB Conc 29.4 g/dL (30.0-36.0); Mean Corpuscular Hemoglobin 27.9 pg (28.0-34.0); Mean Platelet Volume 10.1 fL (7.4-10.4); Monocytes # 0.9 10^3/uL (0.2-0.9); Neutrophils # 5.6 10^3/uL (1.8-7.7); Neutrophils % 71.6 %; Nucleated Red Blood Cells % 0 %; Platelet Count 254 10^3/cmm (130-400); Red Blood Count 3.98 10^6/uL (4.1-5.3); Red Cell Distribution Width 13.9 % (12.1-15.1); White Blood Count 7.9 10^3/uL (4.0-10.0)
--- NOTE | 2019-10-06 05:18 | PC.RESP ---
PT KEEPS REMOVING BIPAP. PT STATES HE FEELS RESTLESS AND GET GET COMFORTABLE WITH BIPAP ON. PT EDUCATED ON REASONS FOR WEARING BIPAP
[2019-10-06 05:48] LABS: Anion Gap 13.4 (5-19); Blood Urea Nitrogen 73 mg/dL (6-20); Calcium 9.3 mg/dL (8.5-10.5); Carbon Dioxide 33 mmol/L (22-29); Chloride 100 mmol/L (98-107); Creatinine Clr Calc Pharmacy 57.7325; Glomerular Filtration Rate 28.9 mL/min (90-130); Glucose 104 mg/dL (65-115); Osmolality Calculated 292 mOsm/kg (285-295); Potassium 5.4 mmol/L (3.5-5.1); Sodium 141 mmol/L (136-145)
[2019-10-06] MEDS: insulin glargine 100 units/1 mL 30 UNIT SUBCUT (06:12)
[2019-10-06 07:27] LABS: Glucose Point of Care 92 mg/dL (70-110)
[2019-10-06] MEDS: FUROsemide 10 mg/mL SDV 10mL 60 MG IVP ×2 (08:32→21:40)
[2019-10-06] MEDS: linezolid premix 600 MG/300 ML PREMIX 300 MG IV (08:32)
[2019-10-06] MEDS: sodium polystyrene sulfonate 15 gm/60 mL Btl 30 GM PO ×2 (08:32→08:36)
[2019-10-06] MEDS: aspirin 325 mg Tablet PO (08:35)
[2019-10-06] MEDS: amlodipine 5 mg Tablet 2.5 MG PO (08:35)
[2019-10-06] MEDS: multivitamin therapeutic Tablet 1 TAB PO (08:35)
[2019-10-06] MEDS: atorvastatin 40 mg Tablet PO (08:35)
[2019-10-06] MEDS: carvedilol 25 mg Tablet PO ×2 (08:35→17:30)
[2019-10-06] MEDS: tamsulosin 0.4 mg Capsule PO (08:36)
[2019-10-06] MEDS: citalopram 20 mg Tablet 40 MG PO (08:36)
--- NOTE | 2019-10-06 08:57 | P.CONIM_ITS ---
Providers/Reason For Consult Consulting Physican/Specialty*: SHNAICE Aroldo/ Cardiology Reason for Consult*: CHF/Elevated troponinI Attending Physician: Darren Vela MD Primary Care Provider: Sulma Wetzel MD History of Present Illness History of Present Illness Akil Velasco is a 49 year old male with multiple medical problems, including congestive heart failure, type 2 diabetes, essential benign hypertension and chronic kidney disease, is presenting with progressive shortness of breath for the last 6 weeks. He been noticing swelling of both lower extremities, extending up to the abdomen associated with some weeping blisters in the legs. He may have occasional sharp chest pains on the right side of the chest. He been having some amount of orthopnea . No fever, chills or cough. No abdominal pain or dysuria. No headache or blurring of vision. Patient has a history of recurrent congestive heart failure and had multiple hospital admissions in the past including a most recent hospital admission to [facility]-he was admitted to the hospital on 08/11/2019 with complaints of progressive shortness of breath. He was treated with diuretics, afterload reducing agents and other symptomatic measures. His blood pressure was found to be uncontrolled at the time of admission. He had a myocardial perfusion imaging during the hospital stay which was unremarkable. The echocardiogram at that time was of suboptimal quality. Repeat echocardiogram during this hospital admission revealed normal LV size and ejection fraction. According the patient, he had a cardiac catheterization 5 or 6 years ago in [place]. Details are not available. He was told to have no blockages at that time. A year and a half ago he was admitted to hospital in [place] with congestive heart failure. He was told to have a LV ejection fraction around 20%?. We do not have any documentation for this. He has no document history for coronary artery disease or myocardial infarction. He has a longstanding history of hypertension for the last 30 years or so. Apparently his blood pressure has been uncontrolled. He also is diagnosed with diabetes and has been on medication for the last 15 years or so. He has a history of occasional alcohol intake. No history for any smoking abuse or other substance abuse. Review of Systems Narrative: CONSTITUTIONAL: No fever or chills. EYES: No blurring of vision or other visual disturbances lately. ENT: No hoarseness of voice, auditory disturbances or sore throat. CARDIOVASCULAR: As mentioned above. RESPIRATORY: Progressive shortness of breath as mentioned above GASTROINTESTINAL: No hematemesis or melena. GENITOURINARY: No dysuria or hematuria. History of chronic kidney disease as mentioned above] INTEGUMENTARY: Weeping blisters in the lower extremities NEURO: No transient ischemic attacks or amaurosis. PSYCHIATRIC: No history of psychosis or major depression. HEMATOLOGIC: No bleeding disorders or significant anemia. History of mild chronic anemia ENDOCRINE: No history of polyuria or polydipsia. Type 2 diabetes MUSCULOSKELETAL: No recent joint pain or swelling. ALLERGY/IMMUNOLOGY: As mentioned above. Meds/Allergies Home Medications and Allergies Home Medications Medication Instructions Recorded Confirmed Type gabapentin 600 mg tablet See Rx Instructions .ROUTE .COMPLEX 08/04/19 10/04/19 History multivitamin 1 cap PO DAILY 08/08/19 10/04/19 History citalopram [Celexa] 40 mg PO DAILY 14 Days #14 tab 08/15/19 10/04/19 Rx CAM BOOT #1 ea 09/16/19 10/04/19 Rx aspirin 81 mg PO DAILY 30 Days #30 tab 10/13/19 Rx insulin aspart U-100 [Novolog 0 unit SUBCUT TIDWM 30 Days #10 ml 10/13/19 Rx U-100 Insulin aspart] insulin glargine [Lantus U-100 30 unit SUBCUT QAM 30 Days #9 ml 10/13/19 Rx Insulin] tamsulosin 0.4 mg PO DAILY 30 Days #30 cap 10/13/19 Rx amlodipine 10 mg tablet 10 mg PO DAILY #30 tab 10/20/19 10/20/19 Rx atorvastatin 40 mg tablet 40 mg PO DAILY #30 tab 10/20/19 10/20/19 Rx carvedilol 25 mg tablet 25 mg PO BID #60 tab 10/20/19 10/20/19 Rx clonidine HCl 0.1 mg tablet 0.1 mg PO TID #90 tab 10/20/19 10/20/19 Rx hydralazine 50 mg tablet 50 mg PO TID #90 tab 10/20/19 10/20/19 Rx isosorbide mononitrate 30 mg 30 mg PO DAILY #30 tab 10/20/19 10/20/19 Rx tablet,extended release 24 hr metolazone 5 mg tablet 5 mg PO Q48H #15 tab 10/20/19 10/20/19 Rx potassium chloride 20 mEq 20 meq PO DAILY #30 tab 10/20/19 10/20/19 Rx tablet,extended release(part/cryst) bumetanide 2 mg tablet 2 mg PO BID tab 10/28/19 History Allergies Allergy/AdvReac Type Severity Reaction Status Date / Time No Known Allergies Allergy Verified 09/16/19 09:25 Current Medications Current Medications Generic Name Dose Route Start Last Admin Trade Name Freq PRN Reason Stop Dose Admin Hydrocodone Bitart/Acetaminophen 1 tab 10/04/19 17:59 10/06/19 00:01 [place] 5-325 Mg PO 1 tab Q4H PRN Administration MODERATE TO SEVERE PAIN Amlodipine Besylate 2.5 mg 10/05/19 09:00 10/06/19 08:35 Norvasc PO 2.5 mg DAILY [place] Administration Aspirin 325 mg 10/05/19 09:00 10/06/19 08:35 Aspirin PO 325 mg DAILY [place] Administration Atorvastatin Calcium 40 mg 10/05/19 09:00 10/06/19 08:35 Lipitor PO 40 mg DAILY [place] Administration Carvedilol 25 mg 10/05/19 09:00 10/06/19 08:35 Coreg PO 25 mg BID [place] Administration Citalopram Hydrobromide 40 mg 10/05/19 09:00 10/06/19 08:36 Celexa PO 40 mg DAILY [place] Administration Enoxaparin Sodium 40 mg 10/04/19 19:32 10/05/19 19:41 Lovenox SUBCUT 40 mg Q24H [place] Administration Furosemide 60 mg 10/05/19 08:30 10/06/19 08:32 Lasix IVP 60 mg Q12H [place] Administration Linezolid 600 mg in 300 mls @ 300 mls/hr 10/05/19 09:00 10/06/19 08:32 Zyvox Premix IV 300 mls/hr Q12H [place] Administration Piperacillin Sod/Tazobactam 50 mls @ 12.5 mls/hr 10/05/19 10:00 10/06/19 07:00 Sod 3.375 gm/ Sodium Chloride IV Infused Q8H [place] Infusion Protocol Insulin Aspart 0 unit 10/05/19 08:00 10/06/19 07:24 Novolog SUBCUT Not Given TIDWM [facility] Protocol Insulin Aspart 0 unit 10/04/19 21:00 10/05/19 21:17 Novolog SUBCUT Not Given BEDTIME [place] Protocol Insulin Glargine 30 unit 10/05/19 08:00 10/06/19 06:12 Lantus SUBCUT 30 unit QAM [place] Administration Multivitamins Therapeutic 1 tab 10/05/19 09:00 10/06/19 08:35 Multivitamin Tab PO 1 tab DAILY [place] Administration Non-Formulary 1 cap 10/06/19 06:00 10/06/19 06:10 Medication- PO 1 cap Gabapentinn 600mg QAM [place] Administration Tablet Tamsulosin HCl 0.4 mg 10/05/19 09:00 10/06/19 08:36 Flomax PO 0.4 mg DAILY [place] Administration PFSH Acute PFSH: Medical History (Updated 10/28/19 @ 13:32 by Eusebio Oliva MD) Accelerated hypertension Acute on chronic diastolic (congestive) heart failure [id number]-[id number] kidney injury Anasarca Cancer Cataract (lens) fragments in eye following cataract surgery, bilateral CKD stage 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 Congestive cardiac failure Diabetes Fracture of fifth metatarsal bone of left foot Fracture of fourth metatarsal bone of left foot Hypertension Laceration Metabolic alkalosis Neuropathy PVD (peripheral vascular disease) Type 2 diabetes mellitus with diabetic polyneuropathy Surgical History (Updated 10/28/19 @ 12:52 by KATIE Arzate) H/O partial nephrectomy bilateral Family History Father Diabetes Mother Diabetes Grandfather Diabetes Cancer Other Hyperlipidemia Social History (Updated 10/28/19 @ 12:53 by KATIE Arzate) Smoking and tobacco status: never smoked Alcohol intake: current Alcohol intake frequency: holidays/special occasions only Substance/Drug Use: unknown Adopted: No Caregiver/support person: No Lives independently: No Household members: spouse Housing: House Marital status: Current occupational status: unemployed History of recent travel: No Current gender identity: Male Vitals/I&O/Wt Last Vital Signs Temp 97.9 F 10/05/19 21:00 Pulse 72 10/06/19 07:00 Resp 20 H 10/06/19 07:00 BP 169/99 10/06/19 07:00 Pulse Ox 94 10/06/19 07:00 10/05/19 10/06/19 10/06/19 22:59 06:59 14:59 Intake Total 1052 / 1932 402 / 2334 50 / 50 Output Total 750 / 3350 1500 / 4850 Balance 302 / -1418 -1098 / -2516 50 / 50 Weight last 48 hrs Weight 340 lb Physical Exam Narrative: EXAM NARRATIVE: GENERAL: The patient is alert and oriented times three. Not in any acute distress. HEENT: Minimal pallor, no icterus or lymphadenopathy. The pupils are reactant to light. Oral cavity: There are no mucous membrane lesions. Funduscopic examination: The fundus is not visualized NECK: Trachea appears to be central. No masses noted. Neck veins are prominent. No thyromegaly appreciated. No carotid bruit. RESPIRATORY: Chest is symmetrical. No intercostals muscle retraction or any accessory muscle activation. There is no chest wall tenderness. Breath sounds are heard bilaterally. Occasional coarse crackles. Intensity of the breath sounds are diminished in the bases. No evidence of any consolidation. BREASTS: Deferred. HEART: The PMI could not be palpated. No palpable precordial events. S1 and S2 are normal. No S3 or S4 heard. Short systolic murmur in the left sternal border. No diastolic murmurs. No pericardial rub or any click heard. ABDOMEN: No vessel pulsations or distention. No tenderness. No organomegaly appreciated. No abdominal bruit. Bowel sounds are normally heard. : Deferred. RECTAL: Deferred. LYMPHATIC: No lymphadenopathy noted in the neck . EXTREMITIES: 2-3+ pitting of both lower extremities. Scrotal edema present. Some discharge from the penile urethra. Weeping ulcers on both lower extremities more so on the right side. Now they are bandaged. MUSCULOSKELETAL: No acute joint deformities or swelling SKIN: There are no significant scars or skin rash noted. NEUROPSYCHIATRIC: The patient is alert and oriented x3. Appears to be in a good mood. The higher functions are grossly within normal limits. No tremors or rigidity noted. Urinary Catheter Management^: Melgar: Cath Placed During This Visit: yes Reason for Continuing Indwelling Catheter: Accurate Measurement of Urinary Output in Critically Ill Patients Urinary Catheter Date of Insertion: 10/04/19 Urinary Catheter Time of Insertion: 18:45 Data Labs: Other Labs: Abnormal lab results 10/06/19 10/06/19 10/06/19 Range/Units 05:01 05:06 05:06 RBC 3.98 L (4.1-5.3) 10^6/u L Hgb 11.1 L (11.7-16.6) g/dL Hct 37.8 L (42.0-52.0) % MCV 95.0 H (80-94) fL MCH 27.9 L (28.0-34.0) pg MCHC 29.4 L (30.0-36.0) g/dL ABG pH 7.28 L (7.35-7.45) ABG pCO2 68.0 H* (35-45) mmHg ABG pO2 78.5 L (80.0-100.0) mmH g ABG HCO3 32.0 H (22-26) mmol/L ABG Base Excess 3.5 H (-2.0-2.0) mmol/ L Hematocrit 36.9 L (42-52) % Potassium 5.4 H (3.5-5.1) mmol/L Carbon Dioxide 33 H (22-29) mmol/L BUN 73 H (6-20) mg/dL Creatinine 2.4 H (0.7-1.2) mg/dL GFR Calculation 28.9 L (90-130) mL/min Micro: Micro: Microbiology 10/04/19 15:14 Blood Culture - Pr eliminary Blood NEGATIVE TO KESHAV E 10/04/19 17:21 Blood Culture - Pr eliminary Blood NEGATIVE TO KESHAV E 10/04/19 22:00 MRSA Culture - Fin al Nose Other Data: Other data: ECHO 10/05/2019 1-Normal left ventricular cavity size. Normal left ventricular systolic function. No regional wall motion abnormalities. Left ventricular ejection fraction is estimated at 56 %. Grade I/IV diastolic dysfunction (abnormal relaxation filling pattern), normal to mildly elevated filling pressures. 2- Moderately thickened mitral valve. No mitral valve stenosis. Moderate mitral valve regurgitation. 3-Moderate aortic valve calcification. No aortic valve stenosis. No aortic valve regurgitation. 4-The right ventricle is normal in size and function. RVSP could not be calculated due to incomplete tricuspid regurgitation velocity profile. 5-There is no pericardial effusion. 6-Right atrial pressure is around5 mm of mercury. 7-Cannot compare it with prior echocardiogram due to suboptimal image quality in the previous exam Myocardial perfusion imaging on 08/14/2019 1. Small size perfusion abnormality of moderate severity of apical anterior and apical lateral farias with improved tracer uptake on stress images. This is suggestive of attenuation artifact. 2. The left ventricular ejection fraction is severely reduced with a value of 25%. 3. Global hypokinesis more pronounced in apical farias. 4. No coronary ischemia based on the study. EKG from 10/05/2019 revealed Normal sinus rhythm with some nonspecific ST changes. Poor R wave progression. Possible old septal IN. Low voltage complexes in the limb leads. A&P Assessment and plan (1) Acute on chronic diastolic (congestive) heart failure: The etiology is not clear. Uncontrolled hypertension, possible ischemia, possible hypoventilation syndrome etc. are contributing factors. His worsening kidney function also may be playing a role. Optimizing the antihypertensive medication and careful IV diuresis are appropriate. Apparently his LV ejection fraction was thought to be in the 20s during the previous hospital admission. Currently the ejection fraction is within normal limits. I may review the echocardiogram and then decide on further management. Status: Acute Code(s): I50.33 - Acute on chronic diastolic (congestive) heart failure (2) Acute hypercapnic respiratory failure: Treatment of the sleep apnea/possible upper respiratory infection/diuresis etc. may be of help Status: Inactive Code(s): J96.02 - Acute respiratory failure with hypercapnia (3) NSTEMI (non-ST elevated myocardial infarction): The elevated troponin T, is suggestive of a non-ST elevation myocardial infarction. The EKG changes are nonspecific. Status: Acute Code(s): I21.4 - Non-ST elevation (NSTEMI) myocardial infarction (4) Accelerated hypertension: Patient's blood pressure is currently of stage II. His compliance to medication is questionable. We will try to optimize his antihypertensive medications. Status: Acute Code(s): I10 - Essential (primary) hypertension (5) Anasarca: Has generalized edema, whether it is all related to congestive heart failure or something else is not clear at this time. Diabetic nephropathy need to be considered. His chronic kidney disease is a significant contributing factor. Status: Acute Code(s): R60.1 - Generalized edema (6) Acute kidney injury superimposed on chronic kidney disease: Patient is known to have chronic kidney disease. He had a bilateral partial nephrectomy for some kind of a tumor. The details are not available at this time. He had renal ultrasound during the last hospital admission and was unremarkable. Status: Acute Code(s): N17.9 - Acute kidney failure, unspecified; N18.9 - Chronic kidney disease, unspecified (7) Uncontrolled diabetes mellitus: His blood sugar has been remaining uncontrolled. But since the hospital admission, the blood sugar seems to be coming down. This needs to be closely monitored. Status: Acute Qualifiers: Diabetes mellitus type: type 2 Glycemic state: with hyperglycemia Qualified Code(s): E11.65 - Type 2 diabetes mellitus with hyperglycemia Code(s): E11.65 - Type 2 diabetes mellitus with hyperglycemia Additional A&P Information Obstructive sleep apnea Dyslipidemia Chronic anemia Mild hyperkalemia Proteinuria Morbid obesity Based on his clinical progress and review of the test results, further recommendations will be made. Thank you for the opportunity to evaluate this patient and make these recommendations Coding Level of Care Code Acute Devops Engineer for Patricia Reid History Comprehensive Exam Comprehensive Medical Decision Making High Complexity Diagnoses Acute on chronic diastolic (congestive) heart failure I50.33 Acute hypercapnic respiratory failure J96.02 NSTEMI (non-ST elevated myocardial infarction) I21.4 Accelerated hypertension I10 Anasarca R60.1 Acute kidney injury superimposed on chronic kidney disease N17.9; N18.9 Uncontrolled diabetes mellitus E11.65 Diabetes mellitus type: type 2 Glycemic state: with hyperglycemia Time Spent (min) 60
--- NOTE | 2019-10-06 09:40 | PC.CHAP ---
Pastoral Care Encounter/Spiritual Assessment Type of Contact [] Declined etl analyst visit [] Patient/Family/Request visit [] Outpatient visit [] Follow-up visit [] Physician referral [] Code/Alert [] Routine visit [] Staff referral [] Actively dying [x] Patient sleeping [] Family support [] [] Out of room [] Palliative care [] [] Receiving care in room [] Pre-surgical visit [] Trauma [] Long length of stay [x] ICU visit [] Other: Relational/Emotional Strength [] Patient feels connected with others/family/visitors/staff [] Distress [] Loneliness/isolation [] Abandonment Spirituality of Patient [] Person of Lizabeth [] Attends Religion of their Lizabeth [] Believes in Prayer [] Reads Bible or Yazdanism materials [] There are Spiritual issues to be addressed Barrel Lapper Interventions [] Prayer [] Active listening [] Non-anxious presence [] Spiritual/emotional support [] Crisis/trauma care [] Spiritual counseling [] Bereavement support [] Provided bereavement packet [] Provided Bible/devotional materials [] Provided toy/stuffed animal, coloring book to patient or family member [] Provided Communion [] Anointing/[place] [] Salvation [] Completed spiritual assessment [] Other: Impact on Illness or Injury [] Angry [] Fearful [] Anxious [] Often cries [] Exhaustion [] Unable to work [] Unable to attend hindu [] Unable to walk/stand [] Unable to read [] Unable to drive [] Unable to eat/drink [] Unable to sleep [] Unable to be with family [] Patient intubated [] Other: Summary Patient was sleeping at the time of etl analyst visit. Referred patient for a follow up visit by the oncoming etl analyst. Visit attempted by Barrel Lapper Paco Manning Time spent with patient 3 minutes
--- NOTE | 2019-10-06 11:03 | P.PN_ITS ---
Subjective Subjective: Interval history: Akil reports he still feels awfully swollen. He does admit that it may be a little bit better than yesterday. No chest discomfort. Still quite short of breath. Main complaint is scrotal edema. Medications: Reviewed: Yes Vitals/I&O/Wt Last Vital Signs Temp 98.5 F 10/06/19 10:00 Pulse 75 10/06/19 10:00 Resp 21 H 10/06/19 10:00 BP 136/97 10/06/19 10:00 Pulse Ox 91 10/06/19 10:00 10/05/19 10/06/19 10/06/19 22:59 06:59 14:59 Intake Total 1052 / 1932 402 / 2334 290 / 290 Output Total 750 / 3350 1500 / 4850 Balance 302 / -1418 -1098 / -2516 290 / 290 Weight last 48 hrs Weight 154.221 kg Physical Exam Narrative: EXAM NARRATIVE: General exam is a white male, mild respiratory distress Cardiovascular regular rate and rhythm without murmur Lungs with diminished breath sounds at the bases, few crackles Abdomen is soft obese with edema noted demonstrates Melgar Extremities 3+ edema left greater than right with some erythema on the left. This is perhaps slightly less tight than yesterday. Scrotal edema is noted, significant. Urinary Catheter Management^: Melgar: Cath Placed During This Visit: yes Reason for Continuing Indwelling Catheter: Accurate Measurement of Urinary Output in Critically Ill Patients Urinary Catheter Date of Insertion: 10/04/19 Urinary Catheter Time of Insertion: 18:45 Data : 10/06/19 05:06 10/06/19 05:06 Micro: Microbiology 10/04/19 15:14 Blood Culture - Preliminary Blood NEGATIVE TO DATE 10/04/19 17:21 Blood Culture - Preliminary Blood NEGATIVE TO DATE 10/04/19 22:00 MRSA Culture - Final Nose A&P Assessment and plan (1) Acute hypercapnic respiratory failure: Consistent with acute systolic and diastolic heart failure. Echocardiogram has been done and will be reviewed by Dr. Kendrick. Initial reading demonstrated improved ejection fraction near normal. Continue diuresis with Lasix 60 mg IV every 12 hours Monitor renal function closely Continue BiPAP at night and as needed Status: Acute Code(s): J96.02 - Acute respiratory failure with hypercapnia (2) Obstructive sleep apnea: Recently had overnight sleep study. He requires CPAP for obstructive sleep apnea. Status: Acute Code(s): G47.33 - Obstructive sleep apnea (adult) (pediatric) (3) Restrictive lung disease: Likely secondary to obesity. Consider outpatient pulmonary function testing Status: Acute Code(s): J98.4 - Other disorders of lung (4) Acute kidney injury superimposed on chronic kidney disease: Baseline creatinine is 1.7 Monitor closely while diuresis is occurring. This is slightly improved today. History of partial nephrectomy x2 Status: Acute Code(s): N17.9 - Acute kidney failure, unspecified; N18.9 - Chronic kidney disease, unspecified (5) Anasarca: Diuresis as above Status: Acute Code(s): R60.1 - Generalized edema (6) Scrotal swelling: Secondary to fluid overload, scrotal elevation Status: Acute Code(s): N50.89 - Other specified disorders of the male genital organs (7) Hypertension: Continue home medication Status: Acute Code(s): I10 - Essential (primary) hypertension (8) CKD stage 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: Creatinine slightly improved. Hyperkalemia is noted. Kayexalate x1 this morning. Status: Acute Code(s): E11.22 - Type 2 diabetes mellitus with diabetic chronic kidney disease; N18.3 - Chronic kidney disease, stage 3 (moderate) (9) Uncontrolled diabetes mellitus: -High-dose sliding scale -Lantus 10 units in the morning Status: Acute Qualifiers: Diabetes mellitus type: type 2 Glycemic state: with hyperglycemia Qualified Code(s): E11.65 - Type 2 diabetes mellitus with hyperglycemia Code(s): E11.65 - Type 2 diabetes mellitus with hyperglycemia (10) Non-ischemic cardiomyopathy: Previous echocardiograms poor quality. Suspect this will be the same. Status: Acute Code(s): I42.8 - Other cardiomyopathies (11) NSTEMI (non-ST elevated myocardial infarction): Appears to be type II Consult cardiology secondary to elevated troponin, significant heart failure. Status: Acute Code(s): I21.4 - Non-ST elevation (NSTEMI) myocardial infarction (12) Pneumonia: Continue linezolid, Zosyn. Await culture Status: Acute Code(s): J18.9 - Pneumonia, unspecified organism (13) Left leg cellulitis: Venous duplex negative Continue linezolid Status: Acute Code(s): L03.116 - Cellulitis of left lower limb Additional A&P Information Urinary retention. Melgar catheter inserted with 2 L evacuated. Continue Flomax. Continue Melgar. Anemia Type 2 diabetes, sliding scale insulin Lovenox for DVT prophylaxis Attestations Medical Necessity Statement*: Needs continued hospitalization for further diuresis secondary to acute on chronic systolic and diastolic heart failure Coding Level of Care Code Acute Canvas Cutter for [facility] Fwd Diagnoses Acute hypercapnic respiratory failure J96.02 Obstructive sleep apnea G47.33 Restrictive lung disease J98.4 Acute kidney injury superimposed on chronic kidney disease N17.9; N18.9 Anasarca R60.1 Scrotal swelling N50.89 Hypertension I10 CKD stage 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 E11.22; N18.3 Uncontrolled diabetes mellitus E11.65 Diabetes mellitus type: type 2 Glycemic state: with hyperglycemia Non-ischemic cardiomyopathy I42.8 NSTEMI (non-ST elevated myocardial infarction) I21.4 Pneumonia J18.9 Left leg cellulitis L03.116
[2019-10-06 11:46] LABS: Glucose Point of Care 118 mg/dL (70-110)
[2019-10-06 17:20] LABS: Glucose Point of Care 149 mg/dL (70-110)
[2019-10-06] MEDS: enoxaparin 40 mg/0.4 mL Syringe SUBCUT (18:38)
[2019-10-06 21:36] LABS: Glucose Point of Care 164 mg/dL (70-110)
[2019-10-06] MEDS: linezolid premix 600 MG/300 ML PREMIX 150 MG IV (21:41)
[2019-10-07] VITALS (30 sets, daily range): BP systolic 106–177; BP diastolic 69–99; PULSE 66–77; RESP 0–25; TEMP 36.4–37.2; O2SAT 91–98
[2019-10-07 04:46] LABS: Anion Gap 13.5 (5-19); Blood Urea Nitrogen 62 mg/dL (6-20); Carbon Dioxide 32 mmol/L (22-29); Chloride 101 mmol/L (98-107); Glomerular Filtration Rate 30.4 mL/min (90-130); Glucose 121 mg/dL (65-115); Osmolality Calculated 294 mOsm/kg (285-295); Potassium 4.5 mmol/L (3.5-5.1); Sodium 142 mmol/L (136-145)
[2019-10-07 06:21] LABS: Glucose Point of Care 111 mg/dL (70-110)
--- NOTE | 2019-10-07 06:54 | PC.NURSE ---
Contacted pharmacy after checking ICU for patient's 6am dose of lantus, Per hospital pharmacy technician, will not be able to bring to [facility] because working on OR orders currently. Communicated to day shift RN.
[2019-10-07] MEDS: insulin glargine 100 units/1 mL 30 UNIT SUBCUT (07:47)
[2019-10-07] MEDS: citalopram 20 mg Tablet 40 MG PO (08:07)
[2019-10-07] MEDS: tamsulosin 0.4 mg Capsule PO (08:07)
[2019-10-07] MEDS: atorvastatin 40 mg Tablet PO (08:07)
[2019-10-07] MEDS: carvedilol 25 mg Tablet PO ×2 (08:07→18:58)
[2019-10-07] MEDS: multivitamin therapeutic Tablet 1 TAB PO (08:07)
[2019-10-07] MEDS: amlodipine 5 mg Tablet PO (08:07)
[2019-10-07] MEDS: FUROsemide 10 mg/mL SDV 10mL 60 MG IVP ×2 (08:08→21:26)
[2019-10-07] MEDS: aspirin 325 mg Tablet PO (08:08)
[2019-10-07] MEDS: linezolid premix 600 MG/300 ML PREMIX 150 MG IV ×2 (08:14→21:27)
[2019-10-07] MEDS: mupirocin oint 22 gm 1 APPLIC TOPICAL (09:55)
[2019-10-07 11:08] LABS: Bilirubin Urine Neg (NEGATIVE); Blood Urine 3+ (Negative); Glucose Urine UA Norm (Normal); Ketones Urine Negative (Negative); Leukocyte Esterase Urine Negative (Negative); Nitrate Urine Negative (Negative); Protein Urine 3+ (Negative); Urine Color Red (Yellow); Urobilinogen Urine Norm (Negative)
[2019-10-07 11:09] LABS: Add Urine Culture? Yes; Bacteria Urine TRACE; RBC Urine >100 /hpf (0-2); Squamous Epithelial Cell Urine 0-4 (0-5); Urine Appearance SL Hazy (CLEAR)
[2019-10-07 11:31] LABS: Glucose Point of Care 144 mg/dL (70-110)
[2019-10-07] MEDS: HYDROcodone-acetaminophen 5-325 mg Tablet 1 TAB PO ×2 (12:10→16:25)
--- NOTE | 2019-10-07 12:46 | PM.PN ---
Subjective Subjective: Interval history: Akil reports he is doing a little bit better. No chest discomfort. No issues breathing. Legs are little less tight. Medications: Reviewed: Yes Vitals/I&O/Wt Last Vital Signs Temp 98.7 F 10/07/19 07:00 Pulse 72 10/07/19 12:24 Resp 18 10/07/19 12:24 BP 165/94 10/07/19 07:00 Pulse Ox 92 10/07/19 12:24 10/06/19 10/07/19 10/07/19 22:59 06:59 14:59 Intake Total 480 / 1360 300 / 1660 600 / 600 Output Total 900 / 2750 1500 / 4250 Balance -420 / -1390 -1200 / -2590 600 / 600 Physical Exam Narrative: EXAM NARRATIVE: General exam is a white male, mild respiratory distress Cardiovascular regular rate and rhythm without murmur Lungs with diminished breath sounds at the bases, few crackles Abdomen is soft obese with edema noted demonstrates Melgar. Scrotal edema is noted Extremities 3+ edema but is improved Urinary Catheter Management^: Melgar: Cath Placed During This Visit: yes Reason for Continuing Indwelling Catheter: Acute Urinary Retention or Obstruction Urinary Catheter Date of Insertion: 10/04/19 Urinary Catheter Time of Insertion: 18:45 Data : 10/06/19 05:06 10/07/19 03:25 A&P Assessment and plan (1) Acute hypercapnic respiratory failure: Consistent with acute systolic and diastolic heart failure. Echocardiogram has been done and will be reviewed by Dr. Kendrick. Initial reading demonstrated improved ejection fraction near normal. Continue diuresis with Lasix 60 mg IV every 12 hours Renal function appears to be improving, with diuresis. He is able to wean some from his oxygen. Continue BiPAP at night and as needed Status: Acute Code(s): J96.02 - Acute respiratory failure with hypercapnia (2) Obstructive sleep apnea: Recently had overnight sleep study. He requires CPAP for obstructive sleep apnea. Status: Acute Code(s): G47.33 - Obstructive sleep apnea (adult) (pediatric) (3) Restrictive lung disease: Likely secondary to obesity. Consider outpatient pulmonary function testing Status: Acute Code(s): J98.4 - Other disorders of lung (4) Acute kidney injury superimposed on chronic kidney disease: Baseline creatinine is 1.7 This is improving with diuresis. History of partial nephrectomy x2 Status: Acute Code(s): N17.9 - Acute kidney failure, unspecified; N18.9 - Chronic kidney disease, unspecified (5) Anasarca: Diuresis as above Status: Acute Code(s): R60.1 - Generalized edema (6) Scrotal swelling: Secondary to fluid overload, scrotal elevation Status: Acute Code(s): N50.89 - Other specified disorders of the male genital organs (7) Hypertension: Norvasc was increased slightly Status: Acute Code(s): I10 - Essential (primary) hypertension (8) CKD stage 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: Creatinine slightly improved. Hyperkalemia is noted. Kayexalate x1 this morning. Status: Acute Code(s): E11.22 - Type 2 diabetes mellitus with diabetic chronic kidney disease; N18.3 - Chronic kidney disease, stage 3 (moderate) (9) Uncontrolled diabetes mellitus: -High-dose sliding scale -Lantus 10 units in the morning sugars under improved control here Status: Acute Qualifiers: Diabetes mellitus type: type 2 Glycemic state: with hyperglycemia Qualified Code(s): E11.65 - Type 2 diabetes mellitus with hyperglycemia Code(s): E11.65 - Type 2 diabetes mellitus with hyperglycemia (10) Non-ischemic cardiomyopathy: Previous echocardiograms poor quality. Suspect this will be the same. Status: Acute Code(s): I42.8 - Other cardiomyopathies (11) NSTEMI (non-ST elevated myocardial infarction): Appears to be type II Consult cardiology secondary to elevated troponin, significant heart failure. Status: Acute Code(s): I21.4 - Non-ST elevation (NSTEMI) myocardial infarction (12) Pneumonia: Continue linezolid, Zosyn. Await culture MRSA PCR negative. Will discontinue linezolid soon if erythema left leg continues to improve Status: Acute Code(s): J18.9 - Pneumonia, unspecified organism (13) Left leg cellulitis: Venous duplex negative Continue linezolid currently. Suspect this can be discontinued in 24-48 hours if leg continues to improve Status: Acute Code(s): L03.116 - Cellulitis of left lower limb Additional A&P Information Urinary retention. Melgar catheter inserted with 2 L evacuated. Continue Flomax. Continue Melgar. Some slight amount of blood-tinged urine. Check urinalysis. Blood is likely from bladder trauma from catheterization as well as marked distention of bladder already present when Melgar was inserted. Anemia Type 2 diabetes, sliding scale insulin Lovenox for DVT prophylaxis Attestations Medical Necessity Statement*: Needs continued hospitalization for diuresis secondary to heart failure. 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
--- NOTE | 2019-10-07 16:45 | PM.PN ---
Subjective Subjective: Interval history: Last 24 hours: He had good urine output last 24 hours. No CP. Medications: Reviewed: Yes Medication Review Details: Current Medications Acetaminophen (Tylenol) 650 mg PO Q6H PRN PRN Reason: Mild/Mod Pain Or Temp >/= 101 Hydrocodone Bitart/Acetaminophen ([place] 5-325 Mg) 1 tab PO Q4H PRN PRN Reason: MODERATE TO SEVERE PAIN Last Admin: 10/07/19 16:25 Dose: 1 tab Documented by: Amlodipine Besylate (Norvasc) 5 mg PO DAILY [facility] Last Admin: 10/07/19 08:07 Dose: 5 mg Documented by: Aspirin (Aspirin) 325 mg PO DAILY [facility] Last Admin: 10/07/19 08:08 Dose: 325 mg Documented by: Atorvastatin Calcium (Lipitor) 40 mg PO DAILY [facility] Last Admin: 10/07/19 08:07 Dose: 40 mg Documented by: Carvedilol (Coreg) 25 mg PO BID [facility] Last Admin: 10/07/19 08:07 Dose: 25 mg Documented by: Citalopram Hydrobromide (Celexa) 40 mg PO DAILY [facility] Last Admin: 10/07/19 08:07 Dose: 40 mg Documented by: Dextrose (D50w) 25 ml IVP ONCE PRN; Protocol PRN Reason: hypoglycemia protocol Dextrose (D50w) 50 ml IVP PRN PRN; Protocol PRN Reason: hypoglycemia protocol Enoxaparin Sodium (Lovenox) 40 mg SUBCUT Q24H [facility] Last Admin: 10/06/19 18:38 Dose: 40 mg Documented by: Furosemide (Lasix) 60 mg IVP Q12H [facility] Last Admin: 10/07/19 08:08 Dose: 60 mg Documented by: Glucagon (Glucagen) 1 mg IM ONCE PRN; Protocol PRN Reason: Adult Acute Hypoglycemia Prot. Dextrose (D5w) 500 mls @ 100 mls/hr IV ONCE PRN; Protocol PRN Reason: Adult Acute Hypoglycemia Prot Linezolid (Zyvox Premix) 600 mg in 300 mls @ 300 mls/hr IV Q12H [facility] Last Admin: 10/07/19 08:14 Dose: 150 mls/hr Documented by: Piperacillin Sod/Tazobactam (Sod 3.375 gm/ Sodium Chloride) 100 mls @ 25 mls/hr IV Q8H [facility]; Protocol Insulin Aspart (Novolog) 0 unit SUBCUT TIDWM [place]; Protocol Last Admin: 10/07/19 12:11 Dose: 6 unit Documented by: Insulin Aspart (Novolog) 0 unit SUBCUT BEDTIME [place]; Protocol Last Admin: 10/06/19 21:45 Dose: 3 unit Documented by: Insulin Glargine (Lantus) 30 unit SUBCUT QAM [facility] Last Admin: 10/07/19 07:47 Dose: 30 unit Documented by: Multivitamins Therapeutic (Multivitamin Tab) 1 tab PO DAILY [facility] Last Admin: 10/07/19 08:07 Dose: 1 tab Documented by: Mupirocin (Bactroban) 1 applic TOPICAL DAILY [facility] Last Admin: 10/07/19 09:55 Dose: 1 applic Documented by: Mupirocin (Bactroban) 1 applic TOPICAL DAILY PRN PRN Reason: IF BANDAGE FALLS OFF Non-Formulary Medication- Gabapentin 600mg Tablet 1.5 each PO QPM [facility] Last Admin: 10/06/19 17:29 Dose: 1.5 each Documented by: Non-Formulary Medication- Gabapentinn 600mg Tablet 1 cap PO QAM [facility] Last Admin: 10/07/19 06:20 Dose: 1 cap Documented by: Tamsulosin HCl (Flomax) 0.4 mg PO DAILY [facility] Last Admin: 10/07/19 08:07 Dose: 0.4 mg Documented by: Vitals/I&O/Wt Last Vital Signs Temp 98.0 F 10/07/19 16:00 Pulse 73 10/07/19 16:00 Resp 18 10/07/19 16:00 BP 162/88 10/07/19 16:00 Pulse Ox 91 10/07/19 16:00 10/07/19 10/07/19 10/07/19 06:59 14:59 22:59 Intake Total 300 / 1660 600 / 600 Output Total 1500 / 4250 Balance -1200 / -2590 600 / 600 Physical Exam Const: COMMON NORMALS: no apparent distress, oriented x3 and alert GENERAL APPEARANCE: cooperative, comfortable, well kempt and well hydrated HENMT: COMMON NORMALS: hearing grossly normal bilaterally, external ears normal and moist oral mucous membranes FACE & SINUS: normal facial exam EXTERNAL EAR: Yes external ears normal Eye: COMMON NORMALS: EOMs intact bilaterally and no scleral icterus GENERAL EYE: normal appearance of both eyes Neck/C-Spine: CAROTIDS: Yes normal carotid upstroke Lymph: LYMPHATIC: no lymphadenopathy noted Resp: AUSCULTATION: no crackles, no rales, no rhonchi, no wheezes and diminished lung sounds Cardio: COMMON NORMALS: regular rate, regular rhythm, S1 normal heart sound, S2 normal heart sound and peripheral pulses 2+ throughout PALPATION: normal PMI RATE: regular rate RHYTHM: regular rhythm HEART SOUNDS: S1 normal, S2 normal, no click, no gallops and no murmurs BRUITS: no carotid bruits PERIPHERAL PULSES: pulses 2+ throughout and radial pulses present GI: COMMON NORMALS: soft to palpation AUSCULTATION: Yes normoactive bowel sounds PALPATION: Yes soft, No tender, No guarding and No rigid Extremity: GENERAL: No clubbing, No cyanosis, Yes edema (4+ diffuse edema, scrotal edema) and No pallor Neuro: COMMON NORMALS: oriented x3, CN's II-XII intact bilaterally and no focal motor deficits SENSORIUM/ORIENTATION: Yes alert Psych: COMMON NORMALS: thought process normal and speech normal APPEARANCE: Yes well kempt SPEECH: Yes normal speech MOOD & AFFECT: Yes euthymic mood THOUGHT PROCESS: normal thought process THOUGHT CONTENT: Yes normal thought content Urinary Catheter Management^: Melgar: Cath Placed During This Visit: yes Reason for Continuing Indwelling Catheter: Acute Urinary Retention or Obstruction Urinary Catheter Date of Insertion: 10/04/19 Urinary Catheter Time of Insertion: 18:45 Data : 10/06/19 05:06 10/07/19 03:25 A&P Assessment and plan (1) Acute on chronic diastolic (congestive) heart failure: Likely a product of dietary indiscretion and accelerated HTN. -UO of 4.2 L last 24 hours. continue lasix 60 mg IV BID. -Fluid restriction to 1.5 L /day Status: Acute Code(s): I50.33 - Acute on chronic diastolic (congestive) heart failure (2) Acute hypercapnic respiratory failure: Status: Acute Code(s): J96.02 - Acute respiratory failure with hypercapnia (3) NSTEMI (non-ST elevated myocardial infarction): Type 2 in setting of decompensated CHF Status: Acute Code(s): I21.4 - Non-ST elevation (NSTEMI) myocardial infarction (4) Accelerated hypertension: continue coreg, amlodipine, lasix 60 mg IV BID. -Increase amlodipine and plan to add low dose metolazone. Status: Acute Code(s): I10 - Essential (primary) hypertension (5) Anasarca: Status: Acute Code(s): R60.1 - Generalized edema (6) Acute kidney injury superimposed on chronic kidney disease: Cardiorenal in setting of decompensated CHF. -f/u BMP Status: Acute Code(s): N17.9 - Acute kidney failure, unspecified; N18.9 - Chronic kidney disease, unspecified (7) Uncontrolled diabetes mellitus: Status: Acute Qualifiers: Diabetes mellitus type: type 2 Glycemic state: with hyperglycemia Qualified Code(s): E11.65 - Type 2 diabetes mellitus with hyperglycemia Code(s): E11.65 - Type 2 diabetes mellitus with hyperglycemia Additional A&P Information Scrotal edema Obstructive sleep apnea currently on BiPAP Dyslipidemia Chronic anemia Morbid obesity Attestations Medical Necessity Statement*: Needs hospital stay for management of CHF Coding Level of Care Code Acute Court Operations Clerk for [facility] Fwd Diagnoses Acute on chronic diastolic (congestive) heart failure I50.33 Acute hypercapnic respiratory failure J96.02 NSTEMI (non-ST elevated myocardial infarction) I21.4 Accelerated hypertension I10 Anasarca R60.1 Acute kidney injury superimposed on chronic kidney disease N17.9; N18.9 Uncontrolled diabetes mellitus E11.65 Diabetes mellitus type: type 2 Glycemic state: with hyperglycemia
[2019-10-07 17:07] LABS: ABG PCO2 65.1 mmHg (35-45)
[2019-10-07 17:22] LABS: Glucose Point of Care 130 mg/dL (70-110)
[2019-10-07] MEDS: piperacillin-tazobactam 3.375 GM in sodium chloride 0.9% (plus) 100 ML IV (18:56)
[2019-10-07] MEDS: enoxaparin 40 mg/0.4 mL Syringe SUBCUT (18:57)
[2019-10-07] MEDS: metOLazone 5 MG Tablet PO (19:36)
[2019-10-07 20:25] LABS: Glucose Point of Care 182 mg/dL (70-110)
--- NOTE | 2019-10-07 20:42 | PC.NURSE ---
Patient up ambulating with assist of 1 and the use of walker. Oxygen in place. Denies complaints at this time. Will monitor.
--- NOTE | 2019-10-07 21:06 | PC.NURSE ---
Pt was informed that he was over his daily intake allowance but requested more fluids anyway.
--- NOTE | 2019-10-07 21:08 | PC.NURSE ---
Patient was educated on his fluid restriction, but is still requesting fluids.
--- NOTE | 2019-10-07 23:29 | PC.NURSE ---
Patient's IV site to left AC very positional. ER notified and will be bringing US machine to restart IV. IV site flushes without difficulty;however, if patient moves the slightest, the IV pump starts ringing. Patient getting a little tired of it. Will monitor.
--- NOTE | 2019-10-07 23:40 | PC.NURSE ---
Patient states, IV won't stop beeping now. Zyvox in with the exception of approximately 50cc's. Disconnected per patient request. Flushed without difficulty.
[2019-10-08] VITALS (31 sets, daily range): BP systolic 154–199; BP diastolic 80–107; PULSE 66–80; RESP 0–26; TEMP 36.4–36.8; O2SAT 85–97
--- NOTE | 2019-10-08 00:49 | PC.NURSE ---
ED nurse placed 20 gauge angio cath into right forearm using US x1 attempt using aseptic technique. Tolerated well. Old PIID to left AC discontinued with catheter intact. Will monitor.
--- NOTE | 2019-10-08 00:50 | PC.NURSE ---
Patient has only slept approximately 1 hour thus far this shift.
[2019-10-08] MEDS: piperacillin-tazobactam 3.375 GM in sodium chloride 0.9% (plus) 100 ML IV ×3 (01:36→18:10)
--- NOTE | 2019-10-08 02:12 | PC.NURSE ---
Lying back in bed after sitting on side of bed for approximately an hour. HOB elevated 30 degrees. HR continues to be 130's and showing ST. Will monitor.
--- NOTE | 2019-10-08 02:14 | PC.NURSE ---
Bipap back off with oxygen via NC applied per patient request. Just can't sleep with it tonight like I did last night. Will monitor.
--- NOTE | 2019-10-08 02:47 | PC.NURSE ---
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 Patient now wanting to walk. Staff explained to patient that it may be awhile before staff would be able to ambulate him. Voices understanding. Will monitor.
--- NOTE | 2019-10-08 03:00 | PC.NURSE ---
Patient ambulating in [place] accompanied by staff and walker.
--- NOTE | 2019-10-08 03:13 | PC.NURSE ---
Back to bed. Just tired of laying....the first night or two that I was in the hospital my brought me some Melatonin gummie bears to help me sleep.....just can't sleep tonight. This nurse explained to patient that we needed to get an order for the Melatonin. States, Really.....even for over the counter meds? This nurse told him yes because it was a medication. Patient then voices understanding. Will monitor.
[2019-10-08 04:06] LABS: Basophils % 0.4 %; Eosinophils # 0.3 10^3/uL (0.0-0.8); Eosinophils % 4.6 %; Hematocrit 36.6 % (42.0-52.0); Lymphocytes # 0.8 10^3/uL (0.8-4.8); Lymphocytes % 12.5 %; Mean Corpuscular HGB Conc 30.1 g/dL (30.0-36.0); Mean Corpuscular Hemoglobin 28.2 pg (28.0-34.0); Mean Corpuscular Volume 93.8 fL (80-94); Mean Platelet Volume 10.5 fL (7.4-10.4); Monocytes # 0.7 10^3/uL (0.2-0.9); Monocytes % 9.8 %; Neutrophils # 4.9 10^3/uL (1.8-7.7); Neutrophils % 72.4 %; Nucleated Red Blood Cells % 0 %; Platelet Count 247 10^3/cmm (130-400); Red Cell Distribution Width 13.7 % (12.1-15.1); White Blood Count 6.7 10^3/uL (4.0-10.0)
--- NOTE | 2019-10-08 04:17 | PC.NURSE ---
Patient complaining of nausea. Dr. Johansen notified with new order received for Zofran 4mg IVP. Patient up to bathroom with max assist of 1 and the use of a walker. Will give medication when done. Will monitor.
[2019-10-08 04:24] LABS: Anion Gap 12.5 (5-19); Blood Urea Nitrogen 56 mg/dL (6-20); Calcium 9.4 mg/dL (8.5-10.5); Carbon Dioxide 35 mmol/L (22-29); Chloride 100 mmol/L (98-107); Glomerular Filtration Rate 30.4 mL/min (90-130); Glucose 119 mg/dL (65-115); Osmolality Calculated 296 mOsm/kg (285-295); Potassium 4.5 mmol/L (3.5-5.1); Sodium 143 mmol/L (136-145)
[2019-10-08] MEDS: ondansetron 2 mg/ML SDV 2 mL 4 MG IVP (04:34)
--- NOTE | 2019-10-08 04:34 | PC.NURSE ---
Patient resting in bed at this time. Changed patient from oxygen use nasal cannula to the BIPAP. Care Continued.
--- NOTE | 2019-10-08 04:46 | PC.NURSE ---
BP down to 182/98. Zofran given per patient request for nausea. This nurse informed patient that BP would be rechecked after medication kicked in. Patient voices understanding. Will monitor.
[2019-10-08] MEDS: insulin glargine 100 units/1 mL 30 UNIT SUBCUT (05:27)
[2019-10-08 07:11] LABS: Glucose Point of Care 106 mg/dL (70-110)
--- NOTE | 2019-10-08 08:13 | PM.PN ---
Subjective Subjective: Interval history: Akil reports he feels a little bit better. Legs are less tight. Medications: Reviewed: Yes Vitals/I&O/Wt Last Vital Signs Temp 97.6 F 10/08/19 07:34 Pulse 75 10/08/19 07:34 Resp 15 10/08/19 07:34 BP 178/102 10/08/19 02:52 Pulse Ox 93 10/08/19 07:34 10/07/19 10/08/19 10/08/19 22:59 06:59 14:59 Intake Total 1710 / 2610 300 / 2910 Output Total 900 / 900 2900 / 3800 Balance 810 / 1710 -2600 / -890 Physical Exam Narrative: EXAM NARRATIVE: General exam is a white male, mild respiratory distress Cardiovascular regular rate and rhythm without murmur Lungs with diminished breath sounds at the bases, few crackles Abdomen is soft obese with edema noted demonstrates Melgar. Scrotal edema is noted Extremities 2+ edema Urinary Catheter Management^: Melgar: Cath Placed During This Visit: yes Reason for Continuing Indwelling Catheter: Other Urinary Catheter Date of Insertion: 10/04/19 Urinary Catheter Time of Insertion: 18:45 Data : 10/08/19 03:27 10/08/19 03:27 Micro: Microbiology 10/07/19 10:15 Urine Culture - Preliminary Urine,Clean Catch A&P Assessment and plan (1) Acute hypercapnic respiratory failure: Consistent with acute systolic and diastolic heart failure. Continue diuresis with Lasix 60 mg IV every 12 hours Renal function has stabilized Wean oxygen as tolerated Continue BiPAP at night and as needed Status: Acute Code(s): J96.02 - Acute respiratory failure with hypercapnia (2) Obstructive sleep apnea: Recently had overnight sleep study. He requires CPAP for obstructive sleep apnea. Status: Acute Code(s): G47.33 - Obstructive sleep apnea (adult) (pediatric) (3) Restrictive lung disease: Likely secondary to obesity. Consider outpatient pulmonary function testing Status: Acute Code(s): J98.4 - Other disorders of lung (4) Acute kidney injury superimposed on chronic kidney disease: Baseline creatinine is 1.7 Current creatinine 2.3, which had improved some with diuresis History of partial nephrectomy x2 Status: Acute Code(s): N17.9 - Acute kidney failure, unspecified; N18.9 - Chronic kidney disease, unspecified (5) Anasarca: Diuresis as above Status: Acute Code(s): R60.1 - Generalized edema (6) Scrotal swelling: Secondary to fluid overload, scrotal elevation Status: Acute Code(s): N50.89 - Other specified disorders of the male genital organs (7) Hypertension: Norvasc was increased slightly Status: Acute Code(s): I10 - Essential (primary) hypertension (8) CKD stage 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: Creatinine slightly improved. Hyperkalemia is noted. Kayexalate x1 this morning. Status: Acute Code(s): E11.22 - Type 2 diabetes mellitus with diabetic chronic kidney disease; N18.3 - Chronic kidney disease, stage 3 (moderate) (9) Uncontrolled diabetes mellitus: -High-dose sliding scale -Lantus 10 units in the morning sugars under improved control here Status: Acute Qualifiers: Diabetes mellitus type: type 2 Glycemic state: with hyperglycemia Qualified Code(s): E11.65 - Type 2 diabetes mellitus with hyperglycemia Code(s): E11.65 - Type 2 diabetes mellitus with hyperglycemia (10) Non-ischemic cardiomyopathy: Previous echocardiograms poor quality. Suspect this will be the same. Status: Acute Code(s): I42.8 - Other cardiomyopathies (11) NSTEMI (non-ST elevated myocardial infarction): Appears to be type II Consult cardiology secondary to elevated troponin, significant heart failure. Status: Acute Code(s): I21.4 - Non-ST elevation (NSTEMI) myocardial infarction (12) Pneumonia: Continue linezolid, Zosyn. Await culture MRSA PCR negative. Will discontinue linezolid soon if erythema left leg continues to improve Status: Acute Code(s): J18.9 - Pneumonia, unspecified organism (13) Left leg cellulitis: Venous duplex negative No evidence of significant erythema currently. Discontinue linezolid Status: Acute Code(s): L03.116 - Cellulitis of left lower limb Additional A&P Information Urinary retention. Melgar catheter inserted with 2 L evacuated. Continue Flomax. Continue Melgar. Some slight amount of blood-tinged urine. Check urinalysis. Blood is likely from bladder trauma from catheterization as well as marked distention of bladder already present when Melgar was inserted. Anemia Type 2 diabetes, sliding scale insulin Lovenox for DVT prophylaxis Attestations Medical Necessity Statement*: Needs continued hospitalization, for further diuresis secondary to acute diastolic heart failure. 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
--- NOTE | 2019-10-08 09:10 | PC.OT ---
OT TREATMENT ATTEMPTED THIS A.M. PATIENT IS SLEEPING SOUNDLY AND DOES NOT AWAKEN TO TOUCH OR NAME X 2 ATTEMPTS. NURSING INFORMED. SHE REPORTS THAT THE PATIENT DID NOT SLEEP YESTERDAY OR LAST NIGHT. WILL ATTEMPT AGAIN IN P.M.
[2019-10-08] MEDS: tamsulosin 0.4 mg Capsule PO (10:00)
[2019-10-08] MEDS: multivitamin therapeutic Tablet 1 TAB PO (10:00)
[2019-10-08] MEDS: atorvastatin 40 mg Tablet PO (10:00)
[2019-10-08] MEDS: aspirin 325 mg Tablet PO (10:00)
[2019-10-08] MEDS: citalopram 20 mg Tablet 40 MG PO (10:00)
[2019-10-08] MEDS: amlodipine 10 mg Tablet PO (10:00)
[2019-10-08] MEDS: metOLazone 5 MG Tablet PO (10:00)
[2019-10-08] MEDS: FUROsemide 10 mg/mL SDV 10mL 60 MG IVP ×2 (10:00→20:53)
[2019-10-08] MEDS: carvedilol 25 mg Tablet PO ×2 (10:00→18:15)
[2019-10-08] MEDS: mupirocin oint 22 gm 1 APPLIC TOPICAL (11:05)
[2019-10-08 11:25] LABS: Glucose Point of Care 80 mg/dL (70-110)
[2019-10-08] MEDS: HYDROcodone-acetaminophen 5-325 mg Tablet 1 TAB PO ×2 (12:53→18:52)
--- NOTE | 2019-10-08 16:41 | P.PN_ITS ---
Subjective Subjective: Interval history: Last 24 hours: He had good urine output last 24 hours; -3.4 L . No CP, SOB+ and still has significant leg swelling and scrotal swelling. He continues to require BiPAP. Medications: Reviewed: Yes Medication Review Details: Current Medications Acetaminophen (Tylenol) 650 mg PO Q6H PRN PRN Reason: Mild/Mod Pain Or Temp >/= 101 Hydrocodone Bitart/Acetaminophen ([place] 5-325 Mg) 1 tab PO Q4H PRN PRN Reason: MODERATE TO SEVERE PAIN Last Admin: 10/08/19 12:53 Dose: 1 tab Documented by: Amlodipine Besylate (Norvasc) 10 mg PO DAILY [facility] Last Admin: 10/08/19 10:00 Dose: 10 mg Documented by: Aspirin (Aspirin) 325 mg PO DAILY [facility] Last Admin: 10/08/19 10:00 Dose: 325 mg Documented by: Atorvastatin Calcium (Lipitor) 40 mg PO DAILY [facility] Last Admin: 10/08/19 10:00 Dose: 40 mg Documented by: Carvedilol (Coreg) 25 mg PO BID [facility] Last Admin: 10/08/19 10:00 Dose: 25 mg Documented by: Citalopram Hydrobromide (Celexa) 40 mg PO DAILY [facility] Last Admin: 10/08/19 10:00 Dose: 40 mg Documented by: Dextrose (D50w) 25 ml IVP ONCE PRN; Protocol PRN Reason: hypoglycemia protocol Dextrose (D50w) 50 ml IVP PRN PRN; Protocol PRN Reason: hypoglycemia protocol Enoxaparin Sodium (Lovenox) 40 mg SUBCUT Q24H [facility] Last Admin: 10/07/19 18:57 Dose: 40 mg Documented by: Furosemide (Lasix) 60 mg IVP Q12H [facility] Last Admin: 10/08/19 10:00 Dose: 60 mg Documented by: Glucagon (Glucagen) 1 mg IM ONCE PRN; Protocol PRN Reason: Adult Acute Hypoglycemia Prot. Hydralazine HCl (Apresoline) 25 mg PO TID [facility] Dextrose (D5w) 500 mls @ 100 mls/hr IV ONCE PRN; Protocol PRN Reason: Adult Acute Hypoglycemia Prot Piperacillin Sod/Tazobactam (Sod 3.375 gm/ Sodium Chloride) 100 mls @ 25 mls/hr IV Q8H [facility]; Protocol Last Admin: 10/08/19 11:00 Dose: 25 mls/hr Documented by: Insulin Aspart (Novolog) 0 unit SUBCUT TIDWM [facility]; Protocol Last Admin: 10/08/19 11:44 Dose: Not Given Documented by: Insulin Aspart (Novolog) 0 unit SUBCUT BEDTIME [facility]; Protocol Last Admin: 10/07/19 21:27 Dose: 4 unit Documented by: Insulin Glargine (Lantus) 30 unit SUBCUT QAM [facility] Last Admin: 10/08/19 05:27 Dose: 30 unit Documented by: Metolazone (Zaroxolyn) 5 mg PO DAILY [facility] Last Admin: 10/08/19 10:00 Dose: 5 mg Documented by: Multivitamins Therapeutic (Multivitamin Tab) 1 tab PO DAILY [facility] Last Admin: 10/08/19 10:00 Dose: 1 tab Documented by: Mupirocin (Bactroban) 1 applic TOPICAL DAILY [facility] Last Admin: 10/08/19 11:05 Dose: 1 applic Documented by: Mupirocin (Bactroban) 1 applic TOPICAL DAILY PRN PRN Reason: IF BANDAGE FALLS OFF Non-Formulary Medication- Gabapentin 600mg Tablet 1.5 each PO QPM [facility] Last Admin: 10/07/19 19:01 Dose: 1.5 each Documented by: Non-Formulary Medication- Gabapentinn 600mg Tablet 1 cap PO QAM [facility] Last Admin: 10/08/19 05:27 Dose: 1 cap Documented by: Ondansetron HCl (Zofran) 4 mg IVP Q4H PRN PRN Reason: NAUSEA AND VOMITING Last Admin: 10/08/19 04:34 Dose: 4 mg Documented by: Tamsulosin HCl (Flomax) 0.4 mg PO DAILY [facility] Last Admin: 10/08/19 10:00 Dose: 0.4 mg Documented by: Vitals/I&O/Wt Last Vital Signs Temp 97.6 F 10/08/19 07:34 Pulse 73 10/08/19 15:01 Resp 20 H 10/08/19 15:01 BP 154/80 10/08/19 15:01 Pulse Ox 94 10/08/19 15:01 10/08/19 10/08/19 10/08/19 06:59 14:59 22:59 Intake Total 400 / 3010 240 / 240 Output Total 2900 / 3800 1999 Balance -2500 / -790 -1760 / -1760 Physical Exam Narrative: EXAM NARRATIVE: COMMON NORMALS: no apparent distress, oriented x3 and alert GENERAL APPEARANCE: morbidly obese, cooperative, comfortable, well kempt and well hydrated [place] COMMON NORMALS: hearing grossly normal bilaterally, external ears normal and moist oral mucous membranes COMMON NORMALS: EOMs intact bilaterally and no scleral icterus GENERAL EYE: normal appearance of both eyes Neck/C-Spine CAROTIDS: Yes normal carotid upstroke Resp AUSCULTATION: no crackles, no rales, no rhonchi, no wheezes and significantly diminished lung sounds Cardio COMMON NORMALS: regular rate, regular rhythm, S1 normal heart sound, S2 normal heart sound and peripheral pulses 2+ throughout PALPATION: normal PMI RATE: regular rate RHYTHM: regular rhythm HEART SOUNDS: S1 normal, S2 normal, no click, no gallops and no murmurs BRUITS: no carotid bruits PERIPHERAL PULSES: pulses 2+ throughout and radial pulses present GI COMMON NORMALS: soft to palpation, obese, distended AUSCULTATION: Yes normoactive bowel sounds PALPATION: Yes soft, No tender, No guarding and No rigid Extremity GENERAL: No clubbing, No cyanosis, Yes edema (4+ diffuse edema, scrotal edema) and No pallor Neuro COMMON NORMALS: oriented x3, CN's II-XII intact bilaterally and no focal motor deficits SENSORIUM/ORIENTATION: Yes alert Urinary Catheter Management^: Melgar: Cath Placed During This Visit: yes Reason for Continuing Indwelling Catheter: Other Urinary Catheter Date of Insertion: 10/04/19 Urinary Catheter Time of Insertion: 18:45 Data : 10/08/19 03:27 10/08/19 03:27 Micro: Microbiology 10/07/19 10:15 Urine Culture - Preliminary Urine,Clean Catch A&P Assessment and plan (1) Acute on chronic diastolic (congestive) heart failure: Likely a product of dietary indiscretion and accelerated HTN. -UO of 5.8 L last 24 hours. continue lasix 60 mg IV BID and metolazone. -Fluid restriction to 1.5 L /day Status: Acute Code(s): I50.33 - Acute on chronic diastolic (congestive) heart failure (2) Acute hypercapnic respiratory failure: Requiring BiPaP Status: Acute Code(s): J96.02 - Acute respiratory failure with hypercapnia (3) NSTEMI (non-ST elevated myocardial infarction): Type 2 in setting of decompensated CHF Status: Acute Code(s): I21.4 - Non-ST elevation (NSTEMI) myocardial infarction (4) Accelerated hypertension: continue coreg, amlodipine,metolazone. -continue lasix 60 mg IV BID. Possibly transition to PO bumex on discharge. -start on hydralazine 25 mg TID. Status: Acute Code(s): I10 - Essential (primary) hypertension (5) Anasarca: Status: Acute Code(s): R60.1 - Generalized edema (6) Acute kidney injury superimposed on chronic kidney disease: Cardiorenal in setting of decompensated CHF. -baseline Creatinine-1.7. Status: Acute Code(s): N17.9 - Acute kidney failure, unspecified; N18.9 - Chronic kidney disease, unsp ecified (7) Uncontrolled diabetes mellitus: Status: Acute Qualifiers: Diabetes mellitus type: type 2 Glycemic state: with hyperglycemia Qualified Code(s): E11.65 - Type 2 diabetes mellitus with hyperglycemia Code(s): E11.65 - Type 2 diabetes mellitus with hyperglycemia Additional A&P Information Scrotal edema Pneumonia Left leg cellulitis Obstructive sleep apnea currently on BiPAP Dyslipidemia Chronic anemia Morbid obesity Attestations Medical Necessity Statement*: Needs hospital stay for significantly decompensated CHF Coding Level of Care Code Acute Cell Inspector for [facility] Fwd Diagnoses Acute on chronic diastolic (congestive) heart failure I50.33 Acute hypercapnic respiratory failure J96.02 NSTEMI (non-ST elevated myocardial infarction) I21.4 Accelerated hypertension I10 Anasarca R60.1 Acute kidney injury superimposed on chronic kidney disease N17.9; N18.9 Uncontrolled diabetes mellitus E11.65 Diabetes mellitus type: type 2 Glycemic state: with hyperglycemia
[2019-10-08 16:48] LABS: Glucose Point of Care 108 mg/dL (70-110)
[2019-10-08] MEDS: enoxaparin 40 mg/0.4 mL Syringe SUBCUT (18:52)
[2019-10-08 20:32] LABS: Glucose Point of Care 195 mg/dL (70-110)
[2019-10-08] MEDS: trazodone 100 mg Tablet PO (20:53)
[2019-10-08] MEDS: hyDRALAzine 25 mg Tablet PO (20:53)
[2019-10-09] VITALS (21 sets, daily range): BP systolic 141–193; BP diastolic 79–105; PULSE 65–88; RESP 8–24; TEMP 36.7–36.8; O2SAT 90–94
[2019-10-09] MEDS: piperacillin-tazobactam 3.375 GM in sodium chloride 0.9% (plus) 100 ML IV ×3 (02:18→18:27)
[2019-10-09] MEDS: HYDROcodone-acetaminophen 5-325 mg Tablet 1 TAB PO ×3 (02:22→13:48)
--- NOTE | 2019-10-09 03:17 | PC.NURSE ---
Patient ambulated 250 feet, from [facility] to [facility] (Main Entrance) returning back 250 feet from [facility] (main entrance) Patient tolerated ambulating well. Patient's respirations even and non-labored. Patient asked to sit in recliner outside of his room and has feet elevated. Will continue to monitor patient and needs at this time. Care Continued.
[2019-10-09 04:23] LABS: Anion Gap 12.1 (5-19); Blood Urea Nitrogen 46 mg/dL (6-20); Calcium 9.7 mg/dL (8.5-10.5); Carbon Dioxide 39 mmol/L (22-29); Chloride 97 mmol/L (98-107); Glomerular Filtration Rate 30.4 mL/min (90-130); Glucose 123 mg/dL (65-115); Magnesium 2.4 mg/dL (1.7-2.3); Osmolality Calculated 297 mOsm/kg (285-295); Potassium 4.1 mmol/L (3.5-5.1); Sodium 144 mmol/L (136-145)
--- NOTE | 2019-10-09 05:10 | PC.NURSE ---
Patient's b/p 193/, contacted Dr. Johansen, and may given 0900 dose early of Hydralazine and Coreg. Care Continued. Call light within reach.
[2019-10-09] MEDS: carvedilol 25 mg Tablet PO ×2 (05:15→17:28)
[2019-10-09] MEDS: hyDRALAzine 25 mg Tablet PO ×3 (05:15→21:30)
[2019-10-09] MEDS: insulin glargine 100 units/1 mL 30 UNIT SUBCUT (05:18)
[2019-10-09 06:32] LABS: Glucose Point of Care 150 mg/dL (70-110)
--- NOTE | 2019-10-09 06:38 | PC.NURSE ---
patient's b/p elevated post po medications, Called Dr. Johansen and ordered to give 0900 dose of amlodipine. Care Continued.
[2019-10-09] MEDS: amlodipine 10 mg Tablet PO (06:47)
[2019-10-09] MEDS: FUROsemide 10 mg/mL SDV 10mL 60 MG IVP ×2 (08:56→21:30)
[2019-10-09] MEDS: citalopram 20 mg Tablet 40 MG PO (08:57)
[2019-10-09] MEDS: metOLazone 5 MG Tablet PO (08:57)
[2019-10-09] MEDS: multivitamin therapeutic Tablet 1 TAB PO (08:57)
[2019-10-09] MEDS: mupirocin oint 22 gm 1 APPLIC TOPICAL (08:57)
[2019-10-09] MEDS: atorvastatin 40 mg Tablet PO (08:57)
[2019-10-09] MEDS: tamsulosin 0.4 mg Capsule PO (08:57)
[2019-10-09] MEDS: aspirin 325 mg Tablet PO (08:57)
--- NOTE | 2019-10-09 09:01 | P.PN_ITS ---
Subjective Subjective: Interval history: Akil reports he is doing okay. He feels less swollen. Less short of breath when he gets up moves around Medications: Reviewed: Yes Vitals/I&O/Wt Last Vital Signs Temp 98.0 F 10/09/19 04:00 Pulse 76 10/09/19 07:49 Resp 19 H 10/09/19 07:49 BP 173/96 10/09/19 07:49 Pulse Ox 92 10/09/19 07:49 10/08/19 10/09/19 10/09/19 22:59 06:59 14:59 Intake Total 580 / 820 200 / 1020 Output Total 1100 / 3100 2400 / 5500 1300 / 1300 Balance -520 / -2280 -2200 / -4480 -1300 / -1300 Weight last 48 hrs Weight 169.644 kg Physical Exam Narrative: EXAM NARRATIVE: General exam is a white male, mild respiratory dis tress Cardiovascular regular rate and rhythm without murmur Lungs with diminished breath sounds at the bases, few crackles Abdomen is soft obese with edema noted demonstrates Melgar. Scrotal edema is noted Extremities 2+ edema Urinary Catheter Management^: Melgar: Cath Placed During This Visit: yes Reason for Continuing Indwelling Catheter: Other Urinary Catheter Date of Insertion: 10/04/19 Urinary Catheter Time of Insertion: 18:45 Data : 10/08/19 03:27 10/09/19 03:10 Micro: Microbiology 10/07/19 10:15 Urine Culture - Final Urine,Clean Catch A&P Assessment and plan (1) Acute hypercapnic respiratory failure: Consistent with acute systolic and diastolic heart failure. Continue diuresis with Lasix 60 mg IV every 12 hours, Zaroxolyn Renal function has stabilized Wean oxygen as tolerated Continue BiPAP at night and as needed Status: Acute Code(s): J96.02 - Acute respiratory failure with hypercapnia (2) Obstructive sleep apnea: Recently had overnight sleep study. He requires CPAP for obstructive sleep apnea. Status: Acute Code(s): G47.33 - Obstructive sleep apnea (adult) (pediatric) (3) Restrictive lung disease: Likely secondary to obesity. Consider outpatient pulmonary function testing Status: Acute Code(s): J98.4 - Other disorders of lung (4) Acute kidney injury superimposed on chronic kidney disease: Baseline creatinine is 1.7 Current creatinine 2.3, which had improved some with diuresis. It has not improved further in the last several days History of partial nephrectomy x2 Status: Acute Code(s): N17.9 - Acute kidney failure, unspecified; N18.9 - Chronic kidney disease, unspecified (5) Anasarca: Diuresis as above Status: Acute Code(s): R60.1 - Generalized edema (6) Scrotal swelling: Secondary to fluid overload, scrotal elevation Status: Acute Code(s): N50.89 - Other specified disorders of the male genital organs (7) Hypertension: Currently on Norvasc, carvedilol. Hydralazine was added last night by cardiology. We will see how this affects his blood pressure today, to determine if further adjustments are needed Status: Acute Code(s): I10 - Essential (primary) hypertension (8) CKD stage 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: Creatinine stabilized but has not decreased further Hyperkalemia resolved Status: Acute Code(s): E11.22 - Type 2 diabetes mellitus with diabetic chronic kidney disease; N18.3 - Chronic kidney disease, stage 3 (moderate) (9) Uncontrolled diabetes mellitus: -High-dose sliding scale -Lantus 10 units in the morning Sugars markedly improved Status: Acute Qualifiers: Diabetes mellitus type: type 2 Glycemic state: with hyperglycemia Qualified Code(s): E11.65 - Type 2 diabetes mellitus with hyperglycemia Code(s): E11.65 - Type 2 diabetes mellitus with hyperglycemia (10) Non-ischemic cardiomyopathy: Previous echocardiograms poor quality. Suspect this will be the same. Status: Acute Code(s): I42.8 - Other cardiomyopathies (11) NSTEMI (non-ST elevated myocardial infarction): Appears to be type II Consult cardiology secondary to elevated troponin, significant heart failure. Status: Acute Code(s): I21.4 - Non-ST elevation (NSTEMI) myocardial infarction (12) Pneumonia: Continue Zosyn. Linezolid was discontinued Status: Acute Code(s): J18.9 - Pneumonia, unspecified organism (13) Left leg cellulitis: Venous duplex negative No evidence of significant erythema currently. Discontinue linezolid Status: Acute Code(s): L03.116 - Cellulitis of left lower limb Additional A&P Information Urinary retention. Melgar catheter inserted with 2 L evacuated. Continue Flomax. Continue Melgar. Some slight amount of blood-tinged urine. Check urinalysis. Blood is likely from bladder trauma from catheterization as well as marked distention of bladder already present when Melgar was inserted. Secondary to significant bladder distention and renal failure, it would be best to leave Melgar catheter in on discharge and have him follow-up with urology. Anemia Type 2 diabetes, sliding scale insulin Lovenox for DVT prophylaxis Attestations Medical Necessity Statement*: Needs continued hospitalization for further diuresis secondary to acute diastolic heart failure Coding Level of Care Code Acute Development Spec for g Fwd Diagnoses Acute hypercapnic respiratory failure J96.02 Obstructive sleep apnea G47.33 Restrictive lung disease J98.4 Acute kidney injury superimposed on chronic kidney disease N17.9; N18.9 Anasarca R60.1 Scrotal swelling N50.89 Hypertension I10 CKD stage 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 E11.22; N18.3 Uncontrolled diabetes mellitus E11.65 Diabetes mellitus type: type 2 Glycemic state: with hyperglycemia Non-ischemic cardiomyopathy I42.8 NSTEMI (non-ST elevated myocardial infarction) I21.4 Pneumonia J18.9 Left leg cellulitis L03.116
[2019-10-09 11:49] LABS: Glucose Point of Care 137 mg/dL (70-110)
--- NOTE | 2019-10-09 13:18 | PC.OT ---
OT TREATMENT ATTEMPTED THIS P.M. PATIENT STATES THAT HE ALREADY SHOWERED TODAY. STATES THAT HE WORKED WITH P.T. THIS MORNING. DECLINES O.T. THIS AFTERNOON
--- NOTE | 2019-10-09 15:44 | P.PN_ITS ---
Subjective Subjective: Interval history: Last 24 hours: He had good urine output last 24 hours; -5.8 L . No CP, SOB+ (improved) and still has significant leg swelling and scrotal swelling. He continues to require BiPAP. Medications: Reviewed: Yes Medication Review Details: Current Medications Acetaminophen (Tylenol) 650 mg PO Q6H PRN PRN Reason: Mild/Mod Pain Or Temp >/= 101 Hydrocodone Bitart/Acetaminophen ([place] 5-325 Mg) 1 tab PO Q4H PRN PRN Reason: MODERATE TO SEVERE PAIN Last Admin: 10/08/19 12:53 Dose: 1 tab Documented by: Amlodipine Besylate (Norvasc) 10 mg PO DAILY [facility] Last Admin: 10/08/19 10:00 Dose: 10 mg Documented by: Aspirin (Aspirin) 325 mg PO DAILY [facility] Last Admin: 10/08/19 10:00 Dose: 325 mg Documented by: Atorvastatin Calcium (Lipitor) 40 mg PO DAILY [facility] Last Admin: 10/08/19 10:00 Dose: 40 mg Documented by: Carvedilol (Coreg) 25 mg PO BID [facility] Last Admin: 10/08/19 10:00 Dose: 25 mg Documented by: Citalopram Hydrobromide (Celexa) 40 mg PO DAILY [facility] Last Admin: 10/08/19 10:00 Dose: 40 mg Documented by: Dextrose (D50w) 25 ml IVP ONCE PRN; Protocol PRN Reason: hypoglycemia protocol Dextrose (D50w) 50 ml IVP PRN PRN; Protocol PRN Reason: hypoglycemia protocol Enoxaparin Sodium (Lovenox) 40 mg SUBCUT Q24H [facility] Last Admin: 10/07/19 18:57 Dose: 40 mg Documented by: Furosemide (Lasix) 60 mg IVP Q12H [facility] Last Admin: 10/08/19 10:00 Dose: 60 mg Documented by: Glucagon (Glucagen) 1 mg IM ONCE PRN; Protocol PRN Reason: Adult Acute Hypoglycemia Prot. Hydralazine HCl (Apresoline) 25 mg PO TID [facility] Dextrose (D5w) 500 mls @ 100 mls/hr IV ONCE PRN; Protocol PRN Reason: Adult Acute Hypoglycemia Prot Piperacillin Sod/Tazobactam (Sod 3.375 gm/ Sodium Chloride) 100 mls @ 25 mls/hr IV Q8H [facility]; Protocol Last Admin: 10/08/19 11:00 Dose: 25 mls/hr Documented by: Insulin Aspart (Novolog) 0 unit SUBCUT TIDWM [facility]; Protocol Last Admin: 10/08/19 11:44 Dose: Not Given Documented by: Insulin Aspart (Novolog) 0 unit SUBCUT BEDTIME [facility]; Protocol Last Admin: 10/07/19 21:27 Dose: 4 unit Documented by: Insulin Glargine (Lantus) 30 unit SUBCUT QAM [facility] Last Admin: 10/08/19 05:27 Dose: 30 unit Documented by: Metolazone (Zaroxolyn) 5 mg PO DAILY [facility] Last Admin: 10/08/19 10:00 Dose: 5 mg Documented by: Multivitamins Therapeutic (Multivitamin Tab) 1 tab PO DAILY [facility] Last Admin: 10/08/19 10:00 Dose: 1 tab Documented by: Mupirocin (Bactroban) 1 applic TOPICAL DAILY [facility] Last Admin: 10/08/19 11:05 Dose: 1 applic Documented by: Mupirocin (Bactroban) 1 applic TOPICAL DAILY PRN PRN Reason: IF BANDAGE FALLS OFF Non-Formulary Medication- Gabapentin 600mg Tablet 1.5 each PO QPM [facility] Last Admin: 10/07/19 19:01 Dose: 1.5 each Documented by: Non-Formulary Medication- Gabapentinn 600mg Tablet 1 cap PO QAM [facility] Last Admin: 10/08/19 05:27 Dose: 1 cap Documented by: Ondansetron HCl (Zofran) 4 mg IVP Q4H PRN PRN Reason: NAUSEA AND VOMITING Last Admin: 10/08/19 04:34 Dose: 4 mg Documented by: Tamsulosin HCl (Flomax) 0.4 mg PO DAILY [facility] Last Admin: 10/08/19 10:00 Dose: 0.4 mg Documented by: Vitals/I&O/Wt Last Vital Signs Temp 98.0 F 10/09/19 04:00 Pulse 72 10/09/19 11:25 Resp 19 H 10/09/19 11:25 BP 163/88 10/09/19 11:25 Pulse Ox 94 10/09/19 11:25 10/09/19 10/09/19 10/09/19 06:59 14:59 22:59 Intake Total 300 / 1120 120 / 120 Output Total 2400 / 5500 1300 / 1300 Balance -2100 / -4380 -1180 / -1180 Weight last 48 hrs Weight 374 lb Physical Exam Narrative: EXAM NARRATIVE: EXAM NARRATIVE: COMMON NORMALS: morbidly obese, oriented x3 and alert GENERAL APPEARANCE: morbidly obese, cooperative, comfortable, well kempt and well hydrated [place] COMMON NORMALS: hearing grossly normal bilaterally, external ears normal and moist oral mucous membranes COMMON NORMALS: EOMs intact bilaterally and no scleral icterus GENERAL EYE: normal appearance of both eyes Neck/C-Spine CAROTIDS: Yes normal carotid upstroke Resp AUSCULTATION: no crackles, no rales, no rhonchi, no wheezes and significantly diminished lung sounds Cardio COMMON NORMALS: regular rate, regular rhythm, S1 normal heart sound, S2 normal heart sound and peripheral pulses 2+ throughout PALPATION: normal PMI RATE: regular rate RHYTHM: regular rhythm HEART SOUNDS: S1 normal, S2 normal, no click, no gallops and no murmurs BRUITS: no carotid bruits PERIPHERAL PULSES: pulses 2+ throughout and radial pulses present GI COMMON NORMALS: soft to palpation, obese, distended AUSCULTATION: Yes normoactive bowel sounds PALPATION: Yes soft, No tender, No guarding and No rigid Extremity GENERAL: No clubbing, No cyanosis, Yes edema (4+ diffuse edema, scrotal edema; improved) and No pallor Neuro COMMON NORMALS: oriented x3, CN's II-XII intact bilaterally and no focal motor deficits SENSORIUM/ORIENTATION: Yes alert Urinary Catheter Management^: Melgar: Cath Placed During This Visit: yes Reason for Continuing Indwelling Catheter: Other Urinary Catheter Date of Insertion: 10/04/19 Urinary Catheter Time of Insertion: 18:45 Data : 10/08/19 03:27 10/09/19 03:10 Micro: Microbiology 10/07/19 10:15 Urine Culture - Final Urine,Clean Catch A&P Assessment and plan (1) Acute on chronic diastolic (congestive) heart failure: Likely a product of dietary indiscretion and accelerated HTN. -UO of 5.8 L last 24 hours. continue lasix 60 mg IV BID and metolazone. -Fluid restriction to 1.5 L /day Status: Acute Code(s): I50.33 - Acute on chronic diastolic (congestive) heart failure (2) Acute hypercapnic respiratory failure: Requiring BiPaP intermittently Status: Acute Code(s): J96.02 - Acute respiratory failure with hypercapnia (3) NSTEMI (non-ST elevated myocardial infarction): Type 2 in setting of decompensated CHF Status: Acute Code(s): I21.4 - Non-ST elevation (NSTEMI) myocardial infarction (4) Accelerated hypertension: continue coreg, amlodipine,metolazone. -continue lasix 60 mg IV BID. Possibly transition to PO bumex on discharge. -started on hydralazine 25 mg TID. Status: Acute Code(s): I10 - Essential (primary) hypertension (5) Anasarca: Status: Acute Code(s): R60.1 - Generalized edema (6) Acute kidney injury superimposed on chronic kidney disease: Cardiorenal in setting of decompensated CHF. -baseline Creatinine-1.7. BUN still improving. Status: Acute Code(s): N17.9 - Acute kidney failure, unspecified; N18.9 - Chronic kidney disease, unspecified (7) Uncontrolled diabetes mellitus: Status: Acute Qualifiers: Diabetes mellitus type: type 2 Glycemic state: with hyperglycemia Qualified Code(s): E11.65 - Type 2 diabetes mellitus with hyperglycemia Code(s): E11.65 - Type 2 diabetes mellitus with hyperglycemia Additional A&P Information Scrotal edema Pneumonia Left leg cellulitis Obstructive sleep apnea currently on BiPAP Dyslipidemia Chronic anemia Morbid obesity Attestations Medical Necessity Statement*: Needs hospital stay for decompensated CHF Coding Level of Care Code Acute Trader Fixed Income for [facility] Fwd Diagnoses Acute on chronic diastolic (congestive) heart failure I50.33 Acute hypercapnic respiratory failure J96.02 NSTEMI (non-ST elevated myocardial infarction) I21.4 Accelerated hypertension I10 Anasarca R60.1 Acute kidney injury superimposed on chronic kidney disease N17.9; N18.9 Uncontrolled diabetes mellitus E11.65 Diabetes mellitus type: type 2 Glycemic state: with hyperglycemia
--- NOTE | 2019-10-09 16:30 | PC.NURSE ---
PATIENT BLOOD PRESSURE NOTED TO BE ELEVATED AT 182/74. DR. KENDALL NOTIFIED. NO NEW ORDERS.
[2019-10-09 16:49] LABS: Glucose Point of Care 206 mg/dL (70-110)
[2019-10-09] MEDS: enoxaparin 40 mg/0.4 mL Syringe SUBCUT (18:27)
--- NOTE | 2019-10-09 19:10 | PC.NURSE ---
patient has refused to be turned this shift despite education from staff.
[2019-10-09] MEDS: ondansetron 2 mg/ML SDV 2 mL 4 MG IVP (21:12)
[2019-10-09 21:18] LABS: Glucose Point of Care 175 mg/dL (70-110)
[2019-10-10] VITALS (29 sets, daily range): BP systolic 141–179; BP diastolic 71–99; PULSE 63–90; RESP 14–26; TEMP 36.6–37; O2SAT 88–97
[2019-10-10] MEDS: HYDROcodone-acetaminophen 5-325 mg Tablet 1 TAB PO ×4 (01:44→21:36)
[2019-10-10] MEDS: piperacillin-tazobactam 3.375 GM in sodium chloride 0.9% (plus) 100 ML IV ×3 (02:13→17:27)
[2019-10-10 03:24] LABS: Anion Gap 12.2 (5-19); Blood Urea Nitrogen 41 mg/dL (6-20); Calcium 9.4 mg/dL (8.5-10.5); Carbon Dioxide 39 mmol/L (22-29); Chloride 96 mmol/L (98-107); Glucose 144 mg/dL (65-115); Osmolality Calculated 296 mOsm/kg (285-295); Potassium 4.2 mmol/L (3.5-5.1); Sodium 143 mmol/L (136-145)
[2019-10-10 04:16] LABS: Basophils % 0.6 %; Eosinophils # 0.5 10^3/uL (0.0-0.8); Eosinophils % 7.1 %; Hematocrit 36.4 % (42.0-52.0); Lymphocytes # 0.8 10^3/uL (0.8-4.8); Lymphocytes % 11.9 %; Mean Corpuscular HGB Conc 30.2 g/dL (30.0-36.0); Mean Corpuscular Volume 89.4 fL (80-94); Mean Platelet Volume 10.4 fL (7.4-10.4); Monocytes # 0.6 10^3/uL (0.2-0.9); Monocytes % 8.5 %; Neutrophils # 4.7 10^3/uL (1.8-7.7); Neutrophils % 71.7 %; Nucleated Red Blood Cells % 0 %; Platelet Count 250 10^3/cmm (130-400); Red Blood Count 4.07 10^6/uL (4.1-5.3); Red Cell Distribution Width 13.4 % (12.1-15.1); White Blood Count 6.6 10^3/uL (4.0-10.0)
[2019-10-10 06:35] LABS: Glucose Point of Care 147 mg/dL (70-110)
[2019-10-10] MEDS: insulin glargine 100 units/1 mL 30 UNIT SUBCUT (07:18)
--- NOTE | 2019-10-10 07:26 | PC.NURSE ---
Patient had been placed on NC at 10L per patient request at ~0400 this am by RT stating, I just want a break from the bipap. Patient sleeping hard this morning. Dr Landry in to see patient requesting bipap be placed. Instructed patient on need to be using bipap while sleeping. Patient expressed understanding. Margot Pope RN in to reinforce need for bipap. Again, patient verbalized understanding. Bipap placed at this time.
--- NOTE | 2019-10-10 07:29 | PM.PN ---
Subjective Subjective: Interval history: Akil was sleeping when I entered the room. Upon awakening, he was able to answer a few questions but seemed a little confused. Some jerking movements of his upper extremities most likely consistent with CO2 accumulation as he was not wearing his BiPAP. Medications: Reviewed: Yes Vitals/I&O/Wt Last Vital Signs Temp 98.3 F 10/10/19 05:00 Pulse 79 10/10/19 05:00 Resp 14 10/10/19 05:00 BP 172/99 10/10/19 05:00 Pulse Ox 97 10/10/19 05:00 10/09/19 10/10/19 10/10/19 22:59 06:59 14:59 Intake Total 560 / 680 200 / 880 Output Total 1551 / 2851 2400 / 5251 Balance -991 / -2171 -2200 / -4371 Weight last 48 hrs Weight 167.013 kg Weight 169.644 kg Physical Exam Narrative: EXAM NARRATIVE: General exam is a white male, mild respiratory distress Cardiovascular regular rate and rhythm without murmur Lungs with diminished breath sounds at the bases, few crackles Abdomen is soft obese with edema noted demonstrates Melgar. Scrotal edema is noted Extremities 1+ edema Urinary Catheter Management^: Melgar: Cath Placed During This Visit: yes Reason for Continuing Indwelling Catheter: Other Urinary Catheter Date of Insertion: 10/04/19 Urinary Catheter Time of Insertion: 18:45 Data : 10/10/19 02:48 10/10/19 02:48 Micro: Microbiology 10/04/19 15:14 Blood Culture - Final Blood NO GROWTH AFTER 5 DAYS 10/04/19 17:21 Blood Culture - Final Blood NO GROWTH AFTER 5 DAYS 10/07/19 10:15 Urine Culture - Final Urine,Clean Catch A&P Assessment and plan (1) Acute hypercapnic respiratory failure: Consistent with acute systolic and diastolic heart failure. Continue diuresis with Lasix 60 mg IV every 12 hours, Zaroxolyn Renal function has stabilized, slowly improving Wean oxygen as tolerated Continue BiPAP at night and as needed Status: Acute Code(s): J96.02 - Acute respiratory failure with hypercapnia (2) Obstructive sleep apnea: Recently had overnight sleep study. He requires CPAP for obstructive sleep apnea. Status: Acute Code(s): G47.33 - Obstructive sleep apnea (adult) (pediatric) (3) Restrictive lung disease: Likely secondary to obesity. Consider outpatient pulmonary function testing Status: Acute Code(s): J98.4 - Other disorders of lung (4) Acute kidney injury superimposed on chronic kidney disease: Baseline creatinine is 1.7 Current creatinine 2.2, which had improved some with diuresis. It has not improved further in the last several days History of partial nephrectomy x2 Status: Acute Code(s): N17.9 - Acute kidney failure, unspecified; N18.9 - Chronic kidney disease, unspecified (5) Anasarca: Diuresis as above Status: Acute Code(s): R60.1 - Generalized edema (6) Scrotal swelling: Secondary to fluid overload, scrotal elevation Status: Acute Code(s): N50.89 - Other specified disorders of the male genital organs (7) Hypertension: Currently on Norvasc, carvedilol, hydralazine. Hydralazine increased further by cardiology Status: Acute Code(s): I10 - Essential (primary) hypertension (8) CKD stage 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: Creatinine stabilized but has not decreased further Hyperkalemia resolved Status: Acute Code(s): E11.22 - Type 2 diabetes mellitus with diabetic chronic kidney disease; N18.3 - Chronic kidney disease, stage 3 (moderate) (9) Uncontrolled diabetes mellitus: -High-dose sliding scale -Lantus 10 units in the morning Sugars markedly improved Status: Acute Qualifiers: Diabetes mellitus type: type 2 Glycemic state: with hyperglycemia Qualified Code(s): E11.65 - Type 2 diabetes mellitus with hyperglycemia Code(s): E11.65 - Type 2 diabetes mellitus with hyperglycemia (10) Non-ischemic cardiomyopathy: Previous echocardiograms poor quality. Suspect this will be the same. Status: Acute Code(s): I42.8 - Other cardiomyopathies (11) NSTEMI (non-ST elevated myocardial infarction): Appears to be type II Consult cardiology secondary to elevated troponin, significant heart failure. Status: Acute Code(s): I21.4 - Non-ST elevation (NSTEMI) myocardial infarction (12) Pneumonia: Continue Zosyn. He is approximately a day #7. Linezolid was discontinued Status: Acute Code(s): J18.9 - Pneumonia, unspecified organism (13) Left leg cellulitis: Venous duplex negative No evidence of significant erythema currently. Linezolid was discontinued Status: Acute Code(s): L03.116 - Cellulitis of left lower limb Additional A&P Information Urinary retention. Melgar catheter inserted with 2 L evacuated. Continue Flomax. Continue Melgar. Some slight amount of blood-tinged urine. Check urinalysis. Blood is likely from bladder trauma from catheterization as well as marked distention of bladder already present when Melgar was inserted. Secondary to significant bladder distention and renal failure, it would be best to leave Melgar catheter in on discharge and have him follow-up with urology. Anemia, stable Type 2 diabetes, sliding scale insulin Lovenox for DVT prophylaxis Attestations Medical Necessity Statement*: Needs continued hospitalization for further diuresis secondary to acute diastolic heart failure Coding Level of Care Code Acute Cork Insulator for [facility] Diagnoses Acute hypercapnic respiratory failure J96.02 Obstructive sleep apnea G47.33 Restrictive lung disease J98.4 Acute kidney injury superimposed on chronic kidney disease N17.9; N18.9 Anasarca R60.1 Scrotal swelling N50.89 Hypertension I10 CKD stage 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 E11.22; N18.3 Uncontrolled diabetes mellitus E11.65 Diabetes mellitus type: type 2 Glycemic state: with hyperglycemia Non-ischemic cardiomyopathy I42.8 NSTEMI (non-ST elevated myocardial infarction) I21.4 Pneumonia J18.9 Left leg cellulitis L03.116
--- NOTE | 2019-10-10 07:51 | PM.PN ---
Subjective Subjective: Interval history: Patient has had good urine output and is -4.3 L from yesterday. His weight is 368 pounds today as compared to 374 pounds yesterday. No events on telemetry. Medications: Reviewed: Yes Medication Review Details: Current Medications Acetaminophen (Tylenol) 650 mg PO Q6H PRN PRN Reason: Mild/Mod Pain Or Temp >/= 101 Hydrocodone Bitart/Acetaminophen ([place] 5-325 Mg) 1 tab PO Q4H PRN PRN Reason: MODERATE PAIN Last Admin: 10/10/19 01:44 Dose: 1 tab Documented by: Amlodipine Besylate (Norvasc) 10 mg PO DAILY [facility] Last Admin: 10/09/19 06:47 Dose: 10 mg Documented by: Aspirin (Aspirin) 325 mg PO DAILY [facility] Last Admin: 10/09/19 08:57 Dose: 325 mg Documented by: Atorvastatin Calcium (Lipitor) 40 mg PO DAILY [facility] Last Admin: 10/09/19 08:57 Dose: 40 mg Documented by: Carvedilol (Coreg) 25 mg PO BID [facility] Last Admin: 10/09/19 17:28 Dose: 25 mg Documented by: Citalopram Hydrobromide (Celexa) 40 mg PO DAILY [facility] Last Admin: 10/09/19 08:57 Dose: 40 mg Documented by: Dextrose (D50w) 25 ml IVP ONCE PRN; Protocol PRN Reason: hypoglycemia protocol Dextrose (D50w) 50 ml IVP PRN PRN; Protocol PRN Reason: hypoglycemia protocol Enoxaparin Sodium (Lovenox) 40 mg SUBCUT Q24H [facility] Last Admin: 10/09/19 18:27 Dose: 40 mg Documented by: Furosemide (Lasix) 60 mg IVP Q12H [facility] Last Admin: 10/09/19 21:30 Dose: 60 mg Documented by: Glucagon (Glucagen) 1 mg IM ONCE PRN; Protocol PRN Reason: Adult Acute Hypoglycemia Prot. Hydralazine HCl (Apresoline) 50 mg PO TID [facility] Dextrose (D5w) 500 mls @ 100 mls/hr IV ONCE PRN; Protocol PRN Reason: Adult Acute Hypoglycemia Prot Piperacillin Sod/Tazobactam (Sod 3.375 gm/ Sodium Chloride) 100 mls @ 25 mls/hr IV Q8H [facility]; Protocol Last Infusion: 10/10/19 06:22 Dose: Infused Documented by: Insulin Aspart (Novolog) 0 unit SUBCUT TIDWM [facility]; Protocol Last Admin: 10/09/19 17:28 Dose: 8 unit Documented by: Insulin Aspart (Novolog) 0 unit SUBCUT BEDTIME [facility]; Protocol Last Admin: 10/09/19 21:31 Dose: 3 unit Documented by: Insulin Glargine (Lantus) 30 unit SUBCUT QAM [facility] Last Admin: 10/10/19 07:18 Dose: 30 unit Documented by: Metolazone (Zaroxolyn) 5 mg PO DAILY [facility] Last Admin: 10/09/19 08:57 Dose: 5 mg Documented by: Multivitamins Therapeutic (Multivitamin Tab) 1 tab PO DAILY [facility] Last Admin: 10/09/19 08:57 Dose: 1 tab Documented by: Mupirocin (Bactroban) 1 applic TOPICAL DAILY [facility] Last Admin: 10/09/19 08:57 Dose: 1 applic Documented by: Mupirocin (Bactroban) 1 applic TOPICAL DAILY PRN PRN Reason: IF BANDAGE FALLS OFF Non-Formulary Medication- Gabapentin 600mg Tablet 1.5 each PO QPM [facility] Last Admin: 10/09/19 17:27 Dose: 1.5 each Documented by: Non-Formulary Medication- Gabapentinn 600mg Tablet 1 cap PO QAM [facility] Last Admin: 10/10/19 05:52 Dose: 1 cap Documented by: Ondansetron HCl (Zofran) 4 mg IVP Q4H PRN PRN Reason: NAUSEA AND VOMITING Last Admin: 10/09/19 21:12 Dose: 4 mg Documented by: Tamsulosin HCl (Flomax) 0.4 mg PO DAILY [facility] Last Admin: 10/09/19 08:57 Dose: 0.4 mg Documented by: Trazodone HCl (Desyrel) 100 mg PO BEDTIME PRN PRN Reason: INSOMNIA Last Admin: 10/08/19 20:53 Dose: 100 mg Documented by: Vitals/I&O/Wt Last Vital Signs Temp 98.3 F 10/10/19 05:00 Pulse 79 10/10/19 05:00 Resp 14 10/10/19 05:00 BP 172/99 10/10/19 05:00 Pulse Ox 97 10/10/19 05:00 0310/10/19 10/10/19 22:59 06:59 14:59 Intake Total 560 / 680 200 / 880 Output Total 1551 / 2851 2400 / 5251 Balance -991 / -2171 -2200 / -4371 Weight last 48 hrs Weight 368 lb 3.2 oz Weight 374 lb Physical Exam Narrative: EXAM NARRATIVE: COMMON NORMALS: morbidly obese, oriented x3 and alert GENERAL APPEARANCE: morbidly obese, cooperative, comfortable, well kempt and well hydrated HENKY COMMON NORMALS: hearing grossly normal bilaterally, external ears normal and moist oral mucous membranes COMMON NORMALS: EOMs intact bilaterally and no scleral icterus GENERAL EYE: normal appearance of both eyes Resp AUSCULTATION: bilateral diminished lung sounds Cardio COMMON NORMALS: regular rate, regular rhythm, S1 normal heart sound, S2 normal heart sound and peripheral pulses 2+ throughout PALPATION: normal PMI RATE: regular rate RHYTHM: regular rhythm HEART SOUNDS: S1 normal, S2 normal, no click, no gallops and no murmurs BRUITS: no carotid bruits PERIPHERAL PULSES: pulses 2+ throughout and radial pulses present GI COMMON NORMALS: soft to palpation, obese, distended AUSCULTATION: Yes normoactive bowel sounds PALPATION: Yes soft, No tender, No guarding and No rigid Extremity GENERAL: No clubbing, No cyanosis, Yes edema (2+ diffuse edema, scrotal edema; improved) and No pallor Neuro COMMON NORMALS: oriented x3, CN's II-XII intact bilaterally and no focal motor deficits SENSORIUM/ORIENTATION: Yes alert Urinary Catheter Management^: Melgar: Cath Placed During This Visit: yes Reason for Continuing Indwelling Catheter: Accurate Measurement of Urinary Output in Critically Ill Patients Urinary Catheter Date of Insertion: 10/04/19 Urinary Catheter Time of Insertion: 18:45 Data : 10/10/19 02:48 10/10/19 02:48 Micro: Microbiology 10/04/19 15:14 Blood Culture - Final Blood NO GROWTH AFTER 5 DAYS 10/04/19 17:21 Blood Culture - Final Blood NO GROWTH AFTER 5 DAYS 10/07/19 10:15 Urine Culture - Final Urine,Clean Catch A&P Assessment and plan (1) Acute on chronic diastolic (congestive) heart failure: Likely a product of dietary indiscretion and accelerated HTN. -UO of 5.8 L last 24 hours. continue lasix 60 mg IV BID and metolazone. -Fluid restriction to 1.5 L /day. Status: Acute Code(s): I50.33 - Acute on chronic diastolic (congestive) heart failure (2) Acute hypercapnic respiratory failure: Requiring BiPaP intermittently Status: Acute Code(s): J96.02 - Acute respiratory failure with hypercapnia (3) NSTEMI (non-ST elevated myocardial infarction): Type 2 in setting of decompensated CHF Status: Acute Code(s): I21.4 - Non-ST elevation (NSTEMI) myocardial infarction (4) Accelerated hypertension: continue coreg, amlodipine,metolazone. -continue lasix 60 mg IV BID. Possibly transition to PO bumex on discharge. -Increase hydralazine to 50 mg TID. Status: Acute Code(s): I10 - Essential (primary) hypertension (5) Anasarca: Status: Acute Code(s): R60.1 - Generalized edema (6) Acute kidney injury superimposed on chronic kidney disease: Cardiorenal in setting of decompensated CHF. -baseline Creatinine-1.7. BUN still improving. Status: Acute Code(s): N17.9 - Acute kidney failure, unspecified; N18.9 - Chronic kidney disease, unspecified (7) Uncontrolled diabetes mellitus: Status: Acute Qualifiers: Diabetes mellitus type: type 2 Glycemic state: with hyperglycemia Qualified Code(s): E11.65 - Type 2 diabetes mellitus with hyperglycemia Code(s): E11.65 - Type 2 diabetes mellitus with hyperglycemia Additional A&P Information Scrotal edema Pneumonia Left leg cellulitis Extremely severe obstructive sleep apnea currently on BiPAP; severe hypoxemia noted on split study. He would benefit more from noninvasive ventilation. Dyslipidemia Chronic anemia Morbid obesity Normocytic anemia Attestations Medical Necessity Statement*: Needs hospital stay for management of decompensated congestive heart failure. Coding Level of Care Code Acute Wireless Engineer for [facility] Diagnoses Acute on chronic diastolic (congestive) heart failure I50.33 Acute hypercapnic respiratory failure J96.02 NSTEMI (non-ST elevated myocardial infarction) I21.4 Accelerated hypertension I10 Anasarca R60.1 Acute kidney injury superimposed on chronic kidney disease N17.9; N18.9 Uncontrolled diabetes mellitus E11.65 Diabetes mellitus type: type 2 Glycemic state: with hyperglycemia
[2019-10-10] MEDS: mupirocin oint 22 gm 1 APPLIC TOPICAL (09:52)
[2019-10-10] MEDS: citalopram 20 mg Tablet 40 MG PO (09:52)
[2019-10-10] MEDS: FUROsemide 10 mg/mL SDV 10mL 60 MG IVP ×2 (09:52→21:35)
[2019-10-10] MEDS: carvedilol 25 mg Tablet PO ×2 (09:53→17:23)
[2019-10-10] MEDS: hyDRALAzine 25 mg Tablet 50 MG PO ×3 (09:53→21:36)
[2019-10-10] MEDS: metOLazone 5 MG Tablet PO (09:53)
[2019-10-10] MEDS: aspirin 325 mg Tablet PO (09:53)
[2019-10-10] MEDS: tamsulosin 0.4 mg Capsule PO (09:53)
[2019-10-10] MEDS: amlodipine 10 mg Tablet PO (09:53)
[2019-10-10] MEDS: multivitamin therapeutic Tablet 1 TAB PO (09:53)
[2019-10-10] MEDS: atorvastatin 40 mg Tablet PO (09:53)
[2019-10-10 12:13] LABS: Glucose Point of Care 141 mg/dL (70-110)
[2019-10-10 17:06] LABS: Glucose Point of Care 120 mg/dL (70-110)
[2019-10-10] MEDS: enoxaparin 40 mg/0.4 mL Syringe SUBCUT (17:23)
--- NOTE | 2019-10-10 20:11 | PC.NURSE ---
Patient up ambulating in [place] with walker, portable O2, and spouse at side. Patient tolerating well. Patient stating, I just need to get up and move. Bedding changed.
[2019-10-10] MEDS: trazodone 100 mg Tablet PO (21:35)
--- NOTE | 2019-10-10 23:26 | PC.NURSE ---
Instruction provided to spouse and patient earlier regarding need for bipap. Both verbalized understanding. Spouse stated, I am supposed to use a machine at home but could not afford it. RT in to place bipap. Patient resting at this time.
[2019-10-11] VITALS (31 sets, daily range): BP systolic 148–204; BP diastolic 72–112; PULSE 63–88; RESP 12–28; TEMP 36.6–37; O2SAT 90–97
[2019-10-11] MEDS: piperacillin-tazobactam 3.375 GM in sodium chloride 0.9% (plus) 100 ML IV ×2 (02:54→11:05)
--- NOTE | 2019-10-11 03:20 | PC.NURSE ---
Patient up to chair at 0100. Ambulated in [place] with walker and O2 at 4L NC. Returned to bed at 0230. Patient requested to have a sandwich which was provided. AT 0300 patient requested to have bipap placed for sleep.
[2019-10-11 04:52] LABS: Anion Gap 7.8 (5-19); Blood Urea Nitrogen 42 mg/dL (6-20); Calcium 9.3 mg/dL (8.5-10.5); Chloride 96 mmol/L (98-107); Glomerular Filtration Rate 33.7 mL/min (90-130); Glucose 150 mg/dL (65-115); Osmolality Calculated 299 mOsm/kg (285-295); Potassium 3.8 mmol/L (3.5-5.1); Sodium 144 mmol/L (136-145)
[2019-10-11 05:18] LABS: Carbon Dioxide 44 mmol/L (22-29)
--- NOTE | 2019-10-11 05:20 | PC.NURSE ---
Patient current CO2 this am is at 44 up from 39 on 10/10/2019. Patient is currently on bipap. Patient continues to wear bipap while sleeping. Informed Dr Winston cortes. No orders received.
[2019-10-11] MEDS: insulin glargine 100 units/1 mL 30 UNIT SUBCUT (05:38)
[2019-10-11 06:26] LABS: Glucose Point of Care 170 mg/dL (70-110)
--- NOTE | 2019-10-11 08:25 | P.PN_ITS ---
Subjective Subjective: Interval history: Akil is under the age of 50 with super morbid obesity and recurrent repeat admissions for a variety of problems primarily volume overload. His glomerular filtration rate is less than 30 mL/min. His creatinine has been stable throughout his hospital stay. He came in a week ago for anasarca and shortness of breath. His blood pressure has been high. He has developed a contraction alkalosis secondary to the diuresis. He has diuresed fairly effectively while maintaining a stable creatinine. He is a noncompliant diabetic who has oat-ic-ohbbjtm hypertension and sleep apnea. There was some discrepancies in the ejection fraction evaluation from echo to nuclear. His most recent echo showed an EF of about 55%. He has severe sleep apnea. The [facility] t recent sestamibi examination was unremarkable. This morning he is awake and alert. When I asked him if he feels better he says the numbers say I am but I do not feel any different . He states that he feels like the edema has not lessened at all in the week that he has been here. Medications: Reviewed: Yes Vitals/I&O/Wt Last Vital Signs Temp 97.9 F 10/11/19 05:00 Pulse 66 10/11/19 07:40 Resp 18 10/11/19 07:40 BP 171/108 10/11/19 05:00 Pulse Ox 94 10/11/19 07:40 10/10/19 10/11/19 10/11/19 22:59 06:59 14:59 Intake Total 700 / 1520 100 / 1620 Output Total 2250 / 3225 2200 / 5425 Balance -1550 / -1705 -2100 / -3805 Weight last 48 hrs Weight 368 lb 3.2 oz Physical Exam Narrative: EXAM NARRATIVE: GENERAL: In general he looks comfortable. Super morbidly obese HEENT: Exam within normal limits. [] NECK: Supple without jugular vein distention. The carotid upstroke is normal without bruits. BACK: Exam normal. LUNGS: Clear. HEART: Regular rate and rhythm. ABDOMEN: Benign without organomegaly or tenderness. EXTREMITIES: No edema. NEUROLOGIC: Exam normal. SKIN: Unremarkable. Anasarca Urinary Catheter Management^: Melgar: Cath Placed During This Visit: yes Reason for Continuing Indwelling Catheter: Accurate Measurement of Urinary Outpu t in Critically Ill Patients Urinary Catheter Date of Insertion: 10/04/19 Urinary Catheter Time of Insertion: 18:45 Data : 10/10/19 02:48 10/11/19 03:42 A&P Assessment and plan (1) Accelerated hypertension: Status: Acute Code(s): I10 - Essential (primary) hypertension (2) Acute on chronic diastolic (congestive) heart failure: Status: Acute Code(s): I50.33 - Acute on chronic diastolic (congestive) heart failure (3) Left leg cellulitis: Status: Acute Code(s): L03.116 - Cellulitis of left lower limb (4) Pneumonia: Status: Acute Code(s): J18.9 - Pneumonia, unspecified organism (5) Scrotal swelling: Status: Acute Code(s): N50.89 - Other specified disorders of the male genital organs (6) Anasarca: Status: Acute Code(s): R60.1 - Generalized edema (7) Acute kidney injury superimposed on chronic kidney disease: Status: Acute Code(s): N17.9 - Acute kidney failure, unspecified; N18.9 - Chronic kidney disease, unspecified (8) Restrictive lung disease: Status: Acute Code(s): J98.4 - Other disorders of lung (9) Obstructive sleep apnea: Status: Acute Code(s): G47.33 - Obstructive sleep apnea (adult) (pediatric) (10) Acute hypercapnic respiratory failure: Status: Acute Code(s): J96.02 - Acute respiratory failure with hypercapnia (11) Non-ischemic cardiomyopathy: Status: Acute Code(s): I42.8 - Other cardiomyopathies (12) Uncontrolled diabetes mellitus: Status: Acute Qualifiers: Diabetes mellitus type: type 2 Glycemic state: with hyperglycemia Qualified Code(s): E11.65 - Type 2 diabetes mellitus with hyperglycemia Code(s): E11.65 - Type 2 diabetes mellitus with hyperglycemia (13) CKD stage 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: Status: Acute Code(s): E11.22 - Type 2 diabetes mellitus with diabetic chronic kidney disease; N18.3 - Chronic kidney disease, stage 3 (moderate) (14) Hypertension: Status: Acute Code(s): I10 - Essential (primary) hypertension (15) CHF exacerbation: Status: Acute Code(s): I50.9 - Heart failure, unspecified (16) Metabolic alkalosis: Status: Acute Code(s): E87.3 - Alkalosis Additional A&P Information Difficult set of problems. The aggressive diuresis will worsen his alkalosis and renal insufficiency. His blood pressure is also not well controlled. KIM inhibitors and angiotensin receptor blockers are probably not indicated. If his blood pressure stays high I would add clonidine to the already prescribed beta- jga, amlodipine and hydralazine. Some of the edema may be related to the vasodilators currently being administered. More than likely this will be a chronic recurring problem unless he were to lose a significant amount of weight. Attestations 2 Medical Necessity Statement*: Not applicable Coding Level of Care Code Acute Weight Training Instructor for [facility] [facility] History Comprehensive Exam Comprehensive Medical Decision Making Moderate Complexity Diagnoses Accelerated hypertension I10 Acute on chronic diastolic (congestive) heart failure I50.33 Left leg cellulitis L03.116 Pneumonia J18.9 Scrotal swelling N50.89 Anasarca R60.1 Acute kidney injury superimposed on chronic kidney disease N17.9; N18.9 Restrictive lung disease J98.4 Obstructive sleep apnea G47.33 Acute hypercapnic respiratory failure J96.02 Non-ischemic cardiomyopathy I42.8 Uncontrolled diabetes mellitus E11.65 Diabetes mellitus type: type 2 Glycemic state: with hyperglycemia CKD stage 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 E11.22; N18.3 Hypertension I10 CHF exacerbation I50.9 Metabolic alkalosis E87.3
[2019-10-11] MEDS: aspirin 325 mg Tablet PO (09:01)
[2019-10-11] MEDS: multivitamin therapeutic Tablet 1 TAB PO (09:01)
[2019-10-11] MEDS: carvedilol 25 mg Tablet PO ×2 (09:01→17:16)
[2019-10-11] MEDS: metOLazone 5 MG Tablet PO (09:01)
[2019-10-11] MEDS: FUROsemide 10 mg/mL SDV 10mL 60 MG IVP ×2 (09:01→21:08)
[2019-10-11] MEDS: amlodipine 10 mg Tablet PO (09:02)
[2019-10-11] MEDS: tamsulosin 0.4 mg Capsule PO (09:02)
[2019-10-11] MEDS: hyDRALAzine 25 mg Tablet 50 MG PO ×3 (09:02→21:08)
[2019-10-11] MEDS: atorvastatin 40 mg Tablet PO (09:02)
[2019-10-11] MEDS: citalopram 20 mg Tablet 40 MG PO (09:02)
[2019-10-11] MEDS: mupirocin oint 22 gm 1 APPLIC TOPICAL (09:55)
[2019-10-11] MEDS: HYDROcodone-acetaminophen 5-325 mg Tablet 1 TAB PO ×3 (09:55→19:40)
[2019-10-11 11:27] LABS: Glucose Point of Care 151 mg/dL (70-110)
--- NOTE | 2019-10-11 12:07 | PM.PN ---
Subjective Subjective: Interval history: Patient states that his shortness of breath has improved, he is ambulating with some symptomatology but much improved, no fevers, chills, no chest pain. However patient continues to have significant scrotal swelling and scrotal pain, and was quite fluctuant throughout the week, not responding well with diuresis and conservative measures Vitals/I&O/Wt Last Vital Signs Temp 97.9 F 10/11/19 05:00 Pulse 71 10/11/19 10:57 Resp 22 H 10/11/19 10:57 BP 168/92 10/11/19 10:57 Pulse Ox 90 10/11/19 10:57 10/10/19 10/11/19 10/11/19 22:59 06:59 14:59 Intake Total 700 / 1520 100 / 1620 460 / 460 Output Total 2250 / 3225 2200 / 5425 Balance -1550 / -1705 -2100 / -3805 460 / 460 Weight last 48 hrs Weight 167.013 kg Physical Exam Const: COMMON NORMALS: no apparent distress and oriented x3 HENMT: COMMON NORMALS: normocephalic HEAD & SCALP: normocephalic Neck/C-Spine: COMMON NORMALS: no JVD Resp: COMMON NORMALS: normal respiratory effort, no retractions, no use of accessory muscles and clear to auscultation bilaterally AUSCULTATION: clear to auscultation bilaterally Cardio: COMMON NORMALS: no JVD, regular rate, regular rhythm, S1 normal heart sound and S2 normal heart sound RATE: regular rate RHYTHM: regular rhythm HEART SOUNDS: S1 normal and S2 normal GI: COMMON NORMALS: normal to inspection, nondistended, normoactive bowel sounds, soft to palpation, non-tender, no hepatosplenomegaly, no masses and no bruits PALPATION: Yes soft and Yes no hepatosplenomegaly : OTHER: Scrotal swelling Extremity: COMMON NORMALS: normal capillary refill, no clubbing, cyanosis or edema, no calf tenderness and no pedal edema Neuro: COMMON NORMALS: oriented x3 Psych: COMMON NORMALS: mental status grossly normal Urinary Catheter Management^: Melgar: Cath Placed During This Visit: yes Reason for Continuing Indwelling Catheter: Accurate Measurement of Urinary Output in Critically Ill Patients Urinary Catheter Date of Insertion: 10/04/19 Urinary Catheter Time of Insertion: 18:45 Data : 10/10/19 02:48 10/11/19 03:42 A&P Assessment and plan (1) Acute hypercapnic respiratory failure: Consistent with acute systolic and diastolic heart failure. Continue diuresis with Lasix 60 mg IV every 12 hours, Zaroxolyn Renal function has stabilized, slowly improving 2.1 Wean oxygen as tolerated Continue BiPAP at night and as needed Status: Acute Code(s): J96.02 - Acute respiratory failure with hypercapnia (2) Obstructive sleep apnea: Recently had overnight sleep study. He requires CPAP for obstructive sleep apnea. Status: Acute Code(s): G47.33 - Obstructive sleep apnea (adult) (pediatric) (3) Restrictive lung disease: Likely secondary to obesity. Consider outpatient pulmonary function testing Status: Acute Code(s): J98.4 - Other disorders of lung (4) Acute kidney injury superimposed on chronic kidney disease: Baseline creatinine is 1.7 Current creatinine 2.1, which had improved some with diuresis. It has not improved further in the last several days History of partial nephrectomy x2 Status: Acute Code(s): N17.9 - Acute kidney failure, unspecified; N18.9 - Chronic kidney disease, unspecified (5) Anasarca: Diuresis as above Status: Acute Code(s): R60.1 - Generalized edema (6) Scrotal swelling: Secondary to fluid overload, scrotal elevation, wrapping Managing this has been difficult Status: Acute Code(s): N50.89 - Other specified disorders of the male genital organs (7) Hypertension: -Continue Norvasc 5 mg once daily -Coreg 25 mg twice daily -Hydralazine 50 3 times daily Status: Acute Code(s): I10 - Essential (primary) hypertension (8) CKD stage 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: Creatinine stabilized Hyperkalemia resolved Status: Acute Code(s): E11.22 - Type 2 diabetes mellitus with diabetic chronic kidney disease; N18.3 - Chronic kidney disease, stage 3 (moderate) (9) Uncontrolled diabetes mellitus: -High-dose sliding scale -Lantus 30 units in the morning Sugars markedly improved Status: Acute Qualifiers: Diabetes mellitus type: type 2 Glycemic state: with hyperglycemia Qualified Code(s): E11.65 - Type 2 diabetes mellitus with hyperglycemia Code(s): E11.65 - Type 2 diabetes mellitus with hyperglycemia (10) Non-ischemic cardiomyopathy: Previous echocardiograms poor quality. Suspect this will be the same. Status: Acute Code(s): I42.8 - Other cardiomyopathies (11) NSTEMI (non-ST elevated myocardial infarction): Appears to be type II Consult cardiology secondary to elevated troponin, significant heart failure. Status: Acute Code(s): I21.4 - Non-ST elevation (NSTEMI) myocardial infarction (12) Pneumonia: -De-escalate to doxycycline Status: Acute Code(s): J18.9 - Pneumonia, unspecified organism (13) Left leg cellulitis: Venous duplex negative No evidence of significant erythema currently. Linezolid was discontinued Status: Acute Code(s): L03.116 - Cellulitis of left lower limb Additional A&P Information Urinary retention. Melgar catheter. Continue Flomax, it would be best to leave Melgar catheter in on discharge and have him follow-up with urology. 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
[2019-10-11 16:56] LABS: Glucose Point of Care 189 mg/dL (70-110)
[2019-10-11] MEDS: doxycycline 100 mg Tablet PO (17:16)
[2019-10-11] MEDS: enoxaparin 40 mg/0.4 mL Syringe SUBCUT (18:32)
[2019-10-11 20:59] LABS: Glucose Point of Care 191 mg/dL (70-110)
[2019-10-11] MEDS: trazodone 100 mg Tablet PO (21:08)
[2019-10-12] VITALS (30 sets, daily range): BP systolic 143–205; BP diastolic 80–113; PULSE 64–88; RESP 6–28; TEMP 36.4–36.8; O2SAT 90–97
[2019-10-12] MEDS: insulin glargine 100 units/1 mL 30 UNIT SUBCUT (04:51)
[2019-10-12 05:09] LABS: Basophils % 0.4 %; Eosinophils # 0.5 10^3/uL (0.0-0.8); Eosinophils % 6.7 %; Hematocrit 36.4 % (42.0-52.0); Lymphocytes % 13.9 %; Mean Corpuscular HGB Conc 30.2 g/dL (30.0-36.0); Mean Corpuscular Hemoglobin 27.6 pg (28.0-34.0); Mean Corpuscular Volume 91.5 fL (80-94); Mean Platelet Volume 9.7 fL (7.4-10.4); Monocytes # 0.6 10^3/uL (0.2-0.9); Monocytes % 7.4 %; Neutrophils # 5.3 10^3/uL (1.8-7.7); Neutrophils % 71.5 %; Nucleated Red Blood Cells % 0 %; Platelet Count 206 10^3/cmm (130-400); Red Blood Count 3.98 10^6/uL (4.1-5.3); Red Cell Distribution Width 13.7 % (12.1-15.1); White Blood Count 7.4 10^3/uL (4.0-10.0)
[2019-10-12 05:33] LABS: Alanine Aminotransferase 23 U/L (0-41); Albumin Level 2.9 g/dL (3.5-5.2); Alkaline Phosphatase 61 IU/L (40-130); Anion Gap 12.7 (5-19); Aspartate Amino Transferase 25 U/L (0-40); Blood Urea Nitrogen 49 mg/dL (6-20); Calcium 9.7 mg/dL (8.5-10.5); Chloride 94 mmol/L (98-107); Globulin 4.1 g/dL (1.3-4.6); Glomerular Filtration Rate 30.4 mL/min (90-130); Glucose 151 mg/dL (65-115); Magnesium 2.1 mg/dL (1.7-2.3); Osmolality Calculated 299 mOsm/kg (285-295); Phosphorus 3.7 mg/dL (2.5-4.5); Potassium 3.7 mmol/L (3.5-5.1); Sodium 144 mmol/L (136-145); Total Bilirubin 0.3 mg/dL (0.15-1.2)
[2019-10-12 05:36] LABS: Carbon Dioxide 41 mmol/L (22-29)
[2019-10-12 06:29] LABS: Glucose Point of Care 133 mg/dL (70-110)
--- NOTE | 2019-10-12 07:30 | P.PN_ITS ---
Subjective Subjective: Interval history: Akil is basically unchanged. He has been up and around. He continues to diurese well. Yesterday he had 6450 mL of urine. Creatinine is 2.3. Glomerular filtration rate is 30 mL/min. Serum bicarbonate is 41. He still does not feel like he is releasing fluid. Remains on Lasix 60 mg IV every 12. He also takes metolazone 5 mg daily. Blood pressure remains high. He freely admits to using an excess amount of salt at home along with soft drinks. Medications: Reviewed: Yes Vitals/I&O/Wt Last Vital Signs Temp 98 F 10/12/19 05:00 Pulse 81 10/12/19 05:00 Resp 16 10/12/19 05:00 BP 182/102 10/12/19 05:00 Pulse Ox 90 10/12/19 05:00 10/11/19 10/12/19 10/12/19 22:59 06:59 14:59 Intake Total 240 / 820 100 / 920 Output Total 1350 / 4050 2400 / 6450 Balance -1110 / -3230 -2300 / -5530 Physical Exam Narrative: EXAM NARRATIVE: GENERAL: In general this morning he is asleep with BiPAP in place. HEENT: Exam within normal limits. NECK: Supple without jugular vein distention. The carotid upstroke is normal without bruits. BACK: Exam normal. LUNGS: Clear. HEART: Regular rate and rhythm. ABDOMEN: Benign without organomegaly or tenderness. EXTREMITIES: 2-3+ edema. NEUROLOGIC: Exam normal. SKIN: Unremarkable. Urinary Catheter Management^: Melgar: Cath Placed During This Visit: yes Reason for Continuing Indwelling Catheter: Accurate Measurement of Urinary Output in Critically Ill Patients Urinary Catheter Date of Insertion: 10/04/19 Urinary Catheter Time of Insertion: 18:45 Data : 10/12/19 04:49 10/12/19 04:49 A&P Assessment and plan (1) Metabolic alkalosis: Status: Acute Code(s): E87.3 - Alkalosis (2) Accelerated hypertension: Status: Acute Code(s): I10 - Essential (primary) hypertension (3) Acute on chronic diastolic (congestive) heart failure: Status: Acute Code(s): I50.33 - Acute on chronic diastolic (congestive) heart failure (4) Left leg cellulitis: Status: Acute Code(s): L03.116 - Cellulitis of left lower limb (5) Scrotal swelling: Status: Acute Code(s): N50.89 - Other specified disorders of the male genital organs (6) Anasarca: Status: Acute Code(s): R60.1 - Generalized edema (7) Acute kidney injury superimposed on chronic kidney disease: Status: Acute Code(s): N17.9 - Acute kidney failure, unspecified; N18.9 - Chronic kidney disease, unspecified (8) Restrictive lung disease: Status: Acute Code(s): J98.4 - Other disorders of lung (9) Obstructive sleep apnea: Status: Acute Code(s): G47.33 - Obstructive sleep apnea (adult) (pediatric) (10) Acute hypercapnic respiratory failure: Status: Acute Code(s): J96.02 - Acute respiratory failure with hypercapnia (11) Non-ischemic cardiomyopathy: Status: Acute Code(s): I42.8 - Other cardiomyopathies (12) Uncontrolled diabetes mellitus: Status: Acute Qualifiers: Diabetes mellitus type: type 2 Glycemic state: with hyperglycemia Qualified Code(s): E11.65 - Type 2 diabetes mellitus with hyperglycemia Code(s): E11.65 - Type 2 diabetes mellitus with hyperglycemia (13) CKD stage 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: Status: Acute Code(s): E11.22 - Type 2 diabetes mellitus with diabetic chronic kidney disease; N18.3 - Chronic kidney disease, stage 3 (moderate) (14) Hypertension: Status: Acute Code(s): I10 - Essential (primary) hypertension (15) CHF exacerbation: Status: Acute Code(s): I50.9 - Heart failure, unspecified Additional A&P Information He is still significantly volume overloaded. No changes made today. Continue present plan. 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 Type Established History Comprehensive Exam Comprehensive Medical Decision Making Moderate Complexity Diagnoses Metabolic alkalosis E87.3 Accelerated hypertension I10 Acute on chronic diastolic (congestive) heart failure I50.33 Left leg cellulitis L03.116 Scrotal swelling N50.89 Anasarca R60.1 Acute kidney injury superimposed on chronic kidney disease N17.9; N18.9 Restrictive lung disease J98.4 Obstructive sleep apnea G47.33 Acute hypercapnic respiratory failure J96.02 Non-ischemic cardiomyopathy I42.8 Uncontrolled diabetes mellitus E11.65 Diabetes mellitus type: type 2 Glycemic state: with hyperglycemia CKD stage 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 E11.22; N18.3 Hypertension I10 CHF exacerbation I50.9
[2019-10-12] MEDS: mupirocin oint 22 gm 1 APPLIC TOPICAL (10:31)
[2019-10-12] MEDS: citalopram 20 mg Tablet 40 MG PO (10:31)
[2019-10-12] MEDS: doxycycline 100 mg Tablet PO ×2 (10:32→17:41)
[2019-10-12] MEDS: tamsulosin 0.4 mg Capsule PO (10:32)
[2019-10-12] MEDS: carvedilol 25 mg Tablet PO ×2 (10:32→17:42)
[2019-10-12] MEDS: hyDRALAzine 25 mg Tablet 50 MG PO ×3 (10:32→20:58)
[2019-10-12] MEDS: amlodipine 10 mg Tablet PO (10:33)
[2019-10-12] MEDS: atorvastatin 40 mg Tablet PO (10:33)
[2019-10-12] MEDS: multivitamin therapeutic Tablet 1 TAB PO (10:33)
[2019-10-12] MEDS: FUROsemide 10 mg/mL SDV 10mL 60 MG IVP ×2 (10:37→20:58)
[2019-10-12] MEDS: cloNIDine 0.1 mg Tablet PO ×3 (10:38→20:57)
[2019-10-12] MEDS: aspirin 81 mg EC Tablet PO (10:38)
[2019-10-12 11:37] LABS: Glucose Point of Care 153 mg/dL (70-110)
--- NOTE | 2019-10-12 14:55 | PC.OT ---
ANTWON RETURNED TO WORK WITH PT ON ENDURANCE FOR ADL AND HE REPORTS HE ALREADY COMPLETED BRUSHING TEETH AND HE IS CURRENTLY AMBULATING WITH NURSING. PT HAS MADE STEADY PROGRESS TOWARD OT GOALS. ANTWON TO CONSULT OTR REGARDING PT'S PROGRESS AND POSSIBLE DISCHARGE FROM OT SERVICES IF HE IS ACTUALLY INDEPENDENT IN HIS SELF CARE NEEDS.
--- NOTE | 2019-10-12 16:34 | PM.PN ---
Subjective Subjective: Interval history: This morning patient states that he is doing better, the swelling around his abdomen has come down, continues to have testicular swelling, but overall doing better, Vitals/I&O/Wt Last Vital Signs Temp 98 F 10/12/19 05:00 Pulse 75 10/12/19 15:59 Resp 25 H 10/12/19 15:59 BP 143/84 10/12/19 15:59 Pulse Ox 90 10/12/19 15:59 10/12/19 10/12/19 10/12/19 06:59 14:59 22:59 Intake Total 100 / 920 280 / 280 Output Total 2400 / 6450 2200 / 2200 Balance -2300 / -5530 -1920 / -1920 Physical Exam Const: COMMON NORMALS: no apparent distress and oriented x3 GENERAL APPEARANCE: cooperative and comfortable HENMT: COMMON NORMALS: normocephalic HEAD & SCALP: normocephalic Eye: COMMON NORMALS: PERRL and EOMs intact bilaterally GENERAL EYE: normal appearance of both eyes PUPIL: Yes PERRL Neck/C-Spine: COMMON NORMALS: full ROM, no lymphadenopathy, no JVD and thyroid normal THYROID: thyroid normal Lymph: LYMPHATIC: no lymphadenopathy noted Resp: COMMON NORMALS: normal respiratory effort, no retractions, no use of accessory muscles and clear to auscultation bilaterally AUSCULTATION: clear to auscultation bilaterally Cardio: COMMON NORMALS: no JVD, regular rate, regular rhythm, S1 normal heart sound, S2 normal heart sound, no gallops, no clicks and no murmurs RATE: regular rate RHYTHM: regular rhythm HEART SOUNDS: S1 normal and S2 normal GI: COMMON NORMALS: normal to inspection, nondistended, normoactive bowel sounds, soft to palpation, non-tender, no hepatosplenomegaly, no masses and no bruits INSPECTION: Yes anasarca present PALPATION: Yes soft and Yes no hepatosplenomegaly : OTHER: Scrotal swelling Extremity: COMMON NORMALS: normal to inspection, full ROM, normal capillary refill, no clubbing, cyanosis or edema, no calf tenderness and no pedal edema Neuro: COMMON NORMALS: oriented x3, CN's II-XII intact bilaterally, moves all extremities and no focal motor deficits Psych: COMMON NORMALS: mental status grossly normal, thought process normal and cooperative THOUGHT PROCESS: normal thought process Urinary Catheter Management^: Melgar: Cath Placed During This Visit: yes Reason for Continuing Indwelling Catheter: Accurate Measurement of Urinary Output in Critically Ill Patients Urinary Catheter Date of Insertion: 10/04/19 Urinary Catheter Time of Insertion: 18:45 Data : 10/12/19 04:49 10/12/19 04:49 A&P Assessment and plan (1) Acute hypercapnic respiratory failure: Consistent with acute systolic and diastolic heart failure. Continue diuresis with Lasix 60 mg IV every 12 hours, Zaroxolyn Renal function has stabilized, currently 2.3 Wean oxygen as tolerated Continue BiPAP at night Status: Acute Code(s): J96.02 - Acute respiratory failure with hypercapnia (2) Obstructive sleep apnea: Recently had overnight sleep study. He requires CPAP for obstructive sleep apnea. Status: Acute Code(s): G47.33 - Obstructive sleep apnea (adult) (pediatric) (3) Restrictive lung disease: Likely secondary to obesity. Consider outpatient pulmonary function testing Status: Acute Code(s): J98.4 - Other disorders of lung (4) Acute kidney injury superimposed on chronic kidney disease: Baseline creatinine is 1.7 Current creatinine 2.3, which had improved some with diuresis. It has not improved further in the last several days History of partial nephrectomy x2 Status: Acute Code(s): N17.9 - Acute kidney failure, unspecified; N18.9 - Chronic kidney disease, unspecified (5) Anasarca: Diuresis as above Status: Acute Code(s): R60.1 - Generalized edema (6) Scrotal swelling: Secondary to fluid overload, scrotal elevation, wrapping Managing this has been difficult Status: Acute Code(s): N50.89 - Other specified disorders of the male genital organs (7) Hypertension: -Continue Norvasc 5 mg once daily -Coreg 25 mg twice daily -Hydralazine 50 3 times daily -I have added clonidine 0.1 mg 3 times daily Status: Acute Code(s): I10 - Essential (primary) hypertension (8) CKD stage 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: Creatinine stabilized Hyperkalemia resolved Status: Acute Code(s): E11.22 - Type 2 diabetes mellitus with diabetic chronic kidney disease; N18.3 - Chronic kidney disease, stage 3 (moderate) (9) Uncontrolled diabetes mellitus: -High-dose sliding scale -Lantus 30 units in the morning Sugars markedly improved Status: Acute Qualifiers: Diabetes mellitus type: type 2 Glycemic state: with hyperglycemia Qualified Code(s): E11.65 - Type 2 diabetes mellitus with hyperglycemia Code(s): E11.65 - Type 2 diabetes mellitus with hyperglycemia (10) Non-ischemic cardiomyopathy: Previous echocardiograms poor quality. Suspect this will be the same. Status: Acute Code(s): I42.8 - Other cardiomyopathies (11) NSTEMI (non-ST elevated myocardial infarction): Appears to be type II Consult cardiology secondary to elevated troponin, significant heart failure. Status: Acute Code(s): I21.4 - Non-ST elevation (NSTEMI) myocardial infarction (12) Pneumonia: -De-escalate to doxycycline Status: Acute Code(s): J18.9 - Pneumonia, unspecified organism (13) Left leg cellulitis: Venous duplex negative No evidence of significant erythema currently. Linezolid was discontinued Status: Acute Code(s): L03.116 - Cellulitis of left lower limb Additional A&P Information Urinary retention. Melgar catheter. Continue Flomax, it would be best to leave Melgar catheter in on discharge and have him follow-up with urology. 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
[2019-10-12 17:03] LABS: Glucose Point of Care 151 mg/dL (70-110)
[2019-10-12] MEDS: HYDROcodone-acetaminophen 5-325 mg Tablet 1 TAB PO ×2 (19:38→22:52)
[2019-10-12 20:40] LABS: Glucose Point of Care 205 mg/dL (70-110)
[2019-10-12] MEDS: enoxaparin 40 mg/0.4 mL Syringe SUBCUT (20:58)
--- NOTE | 2019-10-12 22:53 | PC.NURSE ---
Assessment of scrotum has no change from prior assessment. Patient states he has worsening pain in scrotal area. Will continue to monitor. PRN pain medications given per order.
[2019-10-12] MEDS: trazodone 100 mg Tablet PO (23:46)
[2019-10-13] VITALS (13 sets, daily range): BP systolic 140–175; BP diastolic 78–96; PULSE 67–85; RESP 15–20; TEMP 36.4–36.9; O2SAT 83–94
[2019-10-13] MEDS: oxymetazoline 0.05% Nasal Spray 15 mL 2 SPRAY NOSTRIL-B (01:48)
--- NOTE | 2019-10-13 01:50 | PC.NURSE ---
Dr. Johansen notified of patient complaining of dry nose/bloody nose. Humidifier currently on oxygen. Patient is not currently bleeding, but was. Afrin spray ordered. Will continue to monitor.
[2019-10-13 05:20] LABS: Basophils % 0.2 %; Eosinophils # 0.5 10^3/uL (0.0-0.8); Eosinophils % 5.8 %; Hematocrit 36.6 % (42.0-52.0); Hemoglobin 11.1 g/dL (11.7-16.6); Lymphocytes # 1.2 10^3/uL (0.8-4.8); Lymphocytes % 14.7 %; Mean Corpuscular HGB Conc 30.3 g/dL (30.0-36.0); Mean Corpuscular Hemoglobin 27.5 pg (28.0-34.0); Mean Corpuscular Volume 90.8 fL (80-94); Monocytes # 0.6 10^3/uL (0.2-0.9); Monocytes % 7.8 %; Neutrophils # 5.8 10^3/uL (1.8-7.7); Neutrophils % 71.3 %; Nucleated Red Blood Cells % 0 %; Platelet Count 218 10^3/cmm (130-400); Red Blood Count 4.03 10^6/uL (4.1-5.3); Red Cell Distribution Width 13.8 % (12.1-15.1); White Blood Count 8.2 10^3/uL (4.0-10.0)
[2019-10-13 05:39] LABS: Alanine Aminotransferase 25 U/L (0-41); Albumin Level 2.9 g/dL (3.5-5.2); Alkaline Phosphatase 62 IU/L (40-130); Anion Gap 13.7 (5-19); Aspartate Amino Transferase 26 U/L (0-40); Blood Urea Nitrogen 51 mg/dL (6-20); Calcium 10.1 mg/dL (8.5-10.5); Carbon Dioxide 40 mmol/L (22-29); Chloride 92 mmol/L (98-107); Globulin 4.4 g/dL (1.3-4.6); Glomerular Filtration Rate 35.7 mL/min (90-130); Glucose 194 mg/dL (65-115); Osmolality Calculated 298 mOsm/kg (285-295); Potassium 3.7 mmol/L (3.5-5.1); Sodium 142 mmol/L (136-145); Total Bilirubin 0.4 mg/dL (0.15-1.2); Total Protein 7.3 g/dL (6.6-8.7)
[2019-10-13 05:54] LABS: NT Pro B Type Natriuretic Pept 3877 pg/mL (0-125)
[2019-10-13 06:09] LABS: Glucose Point of Care 165 mg/dL (70-110)
[2019-10-13] MEDS: insulin glargine 100 units/1 mL 30 UNIT SUBCUT (06:11)
[2019-10-13] MEDS: FUROsemide 10 mg/mL SDV 10mL 60 MG IVP (09:12)
[2019-10-13] MEDS: amlodipine 10 mg Tablet PO (09:15)
[2019-10-13] MEDS: aspirin 81 mg EC Tablet PO (09:15)
[2019-10-13] MEDS: doxycycline 100 mg Tablet PO ×2 (09:15→17:32)
[2019-10-13] MEDS: hyDRALAzine 25 mg Tablet 50 MG PO ×3 (09:15→20:24)
[2019-10-13] MEDS: cloNIDine 0.1 mg Tablet PO ×3 (09:16→20:24)
[2019-10-13] MEDS: multivitamin therapeutic Tablet 1 TAB PO (09:16)
[2019-10-13] MEDS: tamsulosin 0.4 mg Capsule PO (09:16)
[2019-10-13] MEDS: carvedilol 25 mg Tablet PO ×2 (09:17→17:32)
[2019-10-13] MEDS: atorvastatin 40 mg Tablet PO (09:17)
[2019-10-13] MEDS: citalopram 20 mg Tablet 40 MG PO (09:17)
[2019-10-13] MEDS: mupirocin oint 22 gm 1 APPLIC TOPICAL (09:24)
[2019-10-13] MEDS: HYDROcodone-acetaminophen 5-325 mg Tablet 1 TAB PO (09:33)
--- NOTE | 2019-10-13 10:45 | PC.PT ---
This pt has been ambulating independently. We had been wrapping the scrotum, but the wraps do not stay on well. He has been given information about the scrotal sling . He does feel that the swelling is better and he will be able continue with his walking independently
[2019-10-13 11:40] LABS: Glucose Point of Care 124 mg/dL (70-110)
--- NOTE | 2019-10-13 12:13 | PC.OT ---
OT note: Discussed pt's progress with [facility] who reported pt is completing transfers including toilet and shower independently, he has been educated on energy conservation techniques, equipment to help with ADLs. Pt is limited by swelling and spouse provides assistance. Discussed with patient who reported he feels he has ADLs under control and is agreeable with OT discharge at this time.
[2019-10-13] MEDS: isosorbide mononitrate ER 30 mg Tablet PO (12:47)
--- NOTE | 2019-10-13 14:20 | P.PN_ITS ---
Subjective Subjective: Interval history: Patient has had good urine output and is -2.9 L from yesterday. No events on telemetry. Medications: Reviewed: Yes Medication Review Details: Current Medications Acetaminophen (Tylenol) 650 mg PO Q6H PRN PRN Reason: Mild/Mod Pain Or Temp >/= 101 Hydrocodone Bitart/Acetaminophen (Mercer 5-325 Mg) 1 tab PO Q4H PRN PRN Reason: MODERATE PAIN Last Admin: 10/13/19 09:33 Dose: 1 tab Documented by: Amlodipine Besylate (Norvasc) 10 mg PO DAILY [facility] Last Admin: 10/13/19 09:15 Dose: 10 mg Documented by: Aspirin (Aspirin Ec) 81 mg PO DAILY [facility] Last Admin: 10/13/19 09:15 Dose: 81 mg Documented by: Atorvastatin Calcium (Lipitor) 40 mg PO DAILY [facility] Last Admin: 10/13/19 09:17 Dose: 40 mg Documented by: Bumetanide (Bumex) 2 mg PO BID [facility] Carvedilol (Coreg) 25 mg PO BID [facility] Last Admin: 10/13/19 09:17 Dose: 25 mg Documented by: Citalopram Hydrobromide (Celexa) 40 mg PO DAILY [facility] Last Admin: 10/13/19 09:17 Dose: 40 mg Documented by: Clonidine HCl (Catapres) 0.1 mg PO TID [facility] Last Admin: 10/13/19 09:16 Dose: 0.1 mg Documented by: Dextrose (D50w) 25 ml IVP ONCE PRN; Protocol PRN Reason: hypoglycemia protocol Dextrose (D50w) 50 ml IVP PRN PRN; Protocol PRN Reason: hypoglycemia protocol Doxycycline Monohydrate (Vibramycin) 100 mg PO BID [facility]; Protocol Last Admin: 10/13/19 09:15 Dose: 100 mg Documented by: Enoxaparin Sodium (Lovenox) 40 mg SUBCUT Q24H [facility] Last Admin: 10/12/19 20:58 Dose: 40 mg Documented by: Glucagon (Glucagen) 1 mg IM ONCE PRN; Protocol PRN Reason: Adult Acute Hypoglycemia Prot. Hydralazine HCl (Apresoline) 50 mg PO TID [facility] Last Admin: 10/13/19 09:15 Dose: 50 mg Documented by: Dextrose (D5w) 500 mls @ 100 mls/hr IV ONCE PRN; Protocol PRN Reason: Adult Acute Hypoglycemia Prot Insulin Aspart (Novolog) 0 unit SUBCUT TIDWM [facility]; Protocol Last Admin: 10/13/19 11:47 Dose: Not Given Documented by: Insulin Aspart (Novolog) 0 unit SUBCUT BEDTIME [facility]; Protocol Last Admin: 10/12/19 20:58 Dose: 4 unit Documented by: Insulin Glargine (Lantus) 30 unit SUBCUT QAM [facility] Last Admin: 10/13/19 06:11 Dose: 30 unit Documented by: Isosorbide Mononitrate (Imdur) 30 mg PO DAILY [facility] Last Admin: 10/13/19 12:47 Dose: 30 mg Documented by: Metolazone (Zaroxolyn) 5 mg PO DAILY [facility] Last Admin: 10/11/19 09:01 Dose: 5 mg Documented by: Multivitamins Therapeutic (Multivitamin Tab) 1 tab PO DAILY [facility] Last Admin: 10/13/19 09:16 Dose: 1 tab Documented by: Mupirocin (Bactroban) 1 applic TOPICAL DAILY [facility] Last Admin: 10/13/19 09:24 Dose: 1 applic Documented by: Mupirocin (Bactroban) 1 applic TOPICAL DAILY PRN PRN Reason: IF BANDAGE FALLS OFF Non-Formulary Medication- Gabapentin 600mg Tablet 1.5 each PO QPM [facility] Last Admin: 10/13/19 09:20 Dose: 1.5 each Documented by: Non-Formulary Medication- Gabapentinn 600mg Tablet 1 cap PO QAM [facility] Last Admin: 10/13/19 06:12 Dose: 1 cap Documented by: Ondansetron HCl (Zofran) 4 mg IVP Q4H PRN PRN Reason: NAUSEA AND VOMITING Last Admin: 10/09/19 21:12 Dose: 4 mg Documented by: Oxymetazoline HCl (Afrin) 2 spray NOSTRIL-B Q12H PRN PRN Reason: NASAL CONGESTION Last Admin: 10/13/19 01:48 Dose: 2 spray Documented by: Tamsulosin HCl (Flomax) 0.4 mg PO DAILY [facility] Last Admin: 10/13/19 09:16 Dose: 0.4 mg Documented by: Trazodone HCl (Desyrel) 100 mg PO BEDTIME PRN PRN Reason: INSOMNIA Last Admin: 03/15/20 23:46 Dose: 100 mg Documented by: Vitals/I&O/Wt Last Vital Signs Temp 98.0 F 10/13/19 11:00 Pulse 75 10/13/19 12:53 Resp 16 10/13/19 11:00 BP 141/78 10/13/19 11:00 Pulse Ox 94 10/13/19 12:53 10/12/19 10/13/19 10/13/19 22:59 06:59 14:59 Intake Total 720 / 1000 600 / 600 Output Total 1400 / 3600 1800 / 5400 1100 / 1100 Balance -1400 / -3320 -1080 / -4400 -500 / -500 Cumulative I&O 10/04/19 14:33 thru 10/13/19 12:00 Intake Total 88951 Output Total 25382 Balance -56178 Weight last 48 hrs Weight 361 lb 6.4 oz Physical Exam Narrative: EXAM NARRATIVE: COMMON NORMALS: morbidly obese, oriented x3 and alert GENERAL APPEARANCE: morbidly obese, cooperative, comfortable, well kempt and well hydrated HENAZ COMMON NORMALS: hearing grossly normal bilaterally, external ears normal and moist oral mucous membranes COMMON NORMALS: EOMs intact bilaterally and no scleral icterus GENERAL EYE: normal appearance of both eyes Resp AUSCULTATION: bilateral diminished lung sounds Cardio COMMON NORMALS: regular rate, regular rhythm, S1 normal heart sound, S2 normal heart sound and peripheral pulses 2+ throughout PALPATION: normal PMI RATE: regular rate RHYTHM: regular rhythm HEART SOUNDS: S1 normal, S2 normal, no click, no gallops and no murmurs BRUITS: no carotid bruits PERIPHERAL PULSES: pulses 2+ throughout and radial pulses present GI COMMON NORMALS: softer to palpation, obese, distended AUSCULTATION: Yes normoactive bowel sounds PALPATION: Yes soft, No tender, No guarding and No rigid Extremity GENERAL: No clubbing, No cyanosis, Yes edema (2+ diffuse edema extending above knees, scrotal edema (improved); and No pallor Neuro COMMON NORMALS: oriented x3, CN's II-XII intact bilaterally and no focal motor deficits SENSORIUM/ORIENTATION: Yes alert Urinary Catheter Management^: Melgar: Cath Placed During This Visit: yes Reason for Continuing Indwelling Catheter: Accurate Measurement of Urinary Output in Critically Ill Patients Urinary Catheter Date of Insertion: 10/04/19 Urinary Catheter Time of Insertion: 18:45 Data : 10/13/19 04:54 10/13/19 04:54 A&P Assessment and plan (1) Acute on chronic diastolic (congestive) heart failure: Likely a product of dietary indiscretion and accelerated HTN. -UO ~40L and net negative ~29 L LOS, stop lasix and start on bumex 2 mg twice a day. -Fluid restriction to 1.5 L /day. Status: Acute Code(s): I50.33 - Acute on chronic diastolic (congestive) heart failure (2) Acute hypercapnic respiratory failure: Requiring BiPaP at night Status: Acute Code(s): J96.02 - Acute respiratory failure with hypercapnia (3) NSTEMI (non-ST elevated myocardial infarction): Type 2 in setting of decompensated CHF Status: Acute Code(s): I21.4 - Non-ST elevation (NSTEMI) myocardial infarction (4) Accelerated hypertension: continue coreg, amlodipine, hydralazine and clonidine. Status: Acute Code(s): I10 - Essential (primary) hypertension (5) Anasarca: improving. Status: Acute Code(s): R60.1 - Generalized edema (6) Acute kidney injury superimposed on chronic kidney disease: Cardiorenal in setting of decompensated CHF. -baseline Creatinine-1.7. Status: Acute Code(s): N17.9 - Acute kidney failure, unspecified; N18.9 - Chronic kidney disease, unspecified (7) Uncontrolled diabetes mellitus: Status: Acute Qualifiers: Diabetes mellitus type: type 2 Glycemic state: with hyperglycemia Qualified Code(s): E11.65 - Type 2 diabetes mellitus with hyperglycemia Code(s): E11.65 - Type 2 diabetes mellitus with hyperglycemia Additional A&P Information Scrotal edema: improving Pneumonia Left leg cellulitis Extremely severe obstructive sleep apnea currently on BiPAP; severe hypoxemia noted on split study. He would benefit more from noninvasive ventilation. Dyslipidemia Chronic anemia Morbid obesity Normocytic anemia Attestations Medical Necessity Statement*: In case he continues to diurese well with bumex, Plan to discharge tomorrow. Coding Level of Care Code Acute Slot Floor Person for Chg Fwd Diagnoses Acute on chronic diastolic (congestive) heart failure I50.33 Acute hypercapnic respiratory failure J96.02 NSTEMI (non-ST elevated myocardial infarction) I21.4 Accelerated hypertension I10 Anasarca R60.1 Acute kidney injury superimposed on chronic kidney disease N17.9; N18.9 Uncontrolled diabetes mellitus E11.65 Diabetes mellitus type: type 2 Glycemic state: with hyperglycemia
--- NOTE | 2019-10-13 15:25 | PC.CHAP ---
Pastoral Care Encounter/Spiritual Assessment Type of Contact [] Declined wood crew supervisor visit [] Patient/Family/Request visit [] Outpatient visit [] Follow-up visit [] Physician referral [] Code/Alert [x] Routine visit [] Staff referral [] Actively dying [] Patient sleeping [] Family support [] [] Out of room [] Palliative care [] [] Receiving care in room [] Pre-surgical visit [] Trauma [x] Long length of stay [] ICU visit [] Other: Relational/Emotional Strength [x] Patient feels connected with others/family/visitors/staff [] Distress [] Loneliness/isolation [] Abandonment Spirituality of Patient [x] Person of Lizabeth [x] Attends Bahai of their Lizabeth [x] Believes in Prayer [] Reads Bible or Anglican materials [] There are Spiritual issues to be addressed Director Data Architecture Interventions [x] Prayer [x] Active listening [x] Non-anxious presence [x] Spiritual/emotional support [] Crisis/trauma care [] Spiritual counseling [] Bereavement support [] Provided bereavement packet [] Provided Bible/devotional materials [] Provided toy/stuffed animal, coloring book to patient or family member [] Provided Communion [] Anointing/[place] [] Salvation [x] Completed spiritual assessment [] Other: Impact on Illness or Injury [] Angry [] Fearful [] Anxious [] Often cries [] Exhaustion [] Unable to work [] Unable to attend protestant [] Unable to walk/stand [] Unable to read [] Unable to drive [] Unable to eat/drink [] Unable to sleep [] Unable to be with family [] Patient intubated [] Other: Summary Director Data Architecture visited with patient about his health and upcoming procedure. Director Data Architecture prayed with patient and his . Time spent with patient 10 minutes
[2019-10-13 16:54] LABS: Glucose Point of Care 169 mg/dL (70-110)
[2019-10-13] MEDS: bumetanide 1 mg Tablet 2 MG PO (17:32)
--- NOTE | 2019-10-13 18:15 | PM.PN ---
Subjective Subjective: Interval history: This morning patient states that his swelling has gone down, swelling around the abdomen has gone down, scrotal swelling still persists, he has been ambulating around the hallways, he feels a lot better, he really wants to go home soon, Vitals/I&O/Wt Last Vital Signs Temp 98.4 F 10/13/19 15:00 Pulse 80 10/13/19 15:00 Resp 18 10/13/19 15:00 BP 140/81 10/13/19 15:15 Pulse Ox 90 10/13/19 15:00 10/13/19 10/13/19 10/13/19 06:59 14:59 22:59 Intake Total 720 / 1000 600 / 600 480 / 1080 Output Total 1800 / 5400 1100 / 1100 1000 / 2100 Balance -1080 / -4400 -500 / -500 -520 / -1020 Weight last 48 hrs Weight 163.928 kg Physical Exam Const: COMMON NORMALS: no apparent distress and oriented x3 GENERAL APPEARANCE: cooperative and comfortable HENMT: COMMON NORMALS: normocephalic HEAD & SCALP: normocephalic Neck/C-Spine: COMMON NORMALS: full ROM, no lymphadenopathy, no JVD and thyroid normal THYROID: thyroid normal Lymph: LYMPHATIC: no lymphadenopathy noted Resp: COMMON NORMALS: normal respiratory effort, no retractions, no use of accessory muscles and clear to auscultation bilaterally AUSCULTATION: clear to auscultation bilaterally Cardio: COMMON NORMALS: no JVD, regular rate, regular rhythm, S1 normal heart sound, S2 normal heart sound, no gallops, no clicks and no murmurs RATE: regular rate RHYTHM: regular rhythm HEART SOUNDS: S1 normal and S2 normal GI: COMMON NORMALS: normal to inspection, nondistended, normoactive bowel sounds, soft to palpation, non-tender, no hepatosplenomegaly, no masses and no bruits INSPECTION: Yes anasarca present PALPATION: Yes soft and Yes no hepatosplenomegaly : OTHER: Scrotal swelling Extremity: COMMON NORMALS: normal to inspection, full ROM, normal capillary refill, no clubbing, cyanosis or edema, no calf tenderness and no pedal edema Neuro: COMMON NORMALS: oriented x3 Urinary Catheter Management^: Melgar: Cath Placed During This Visit: yes Reason for Continuing Indwelling Catheter: Accurate Measurement of Urinary Output in Critically Ill Patients Urinary Catheter Date of Insertion: 10/04/19 Urinary Catheter Time of Insertion: 18:45 Data : 10/13/19 04:54 10/13/19 04:54 A&P Assessment and plan (1) Acute hypercapnic respiratory failure: Consistent with acute systolic and diastolic heart failure. Continue diuresis with switch to Bumex 2 mg every 12 hours p.o. Renal function has stabilized, currently 2.0 Wean oxygen as tolerated Continue BiPAP at night Status: Acute Code(s): J96.02 - Acute respiratory failure with hypercapnia (2) Obstructive sleep apnea: Recently had overnight sleep study. He requires CPAP for obstructive sleep apnea. Status: Acute Code(s): G47.33 - Obstructive sleep apnea (adult) (pediatric) (3) Restrictive lung disease: Likely secondary to obesity. Consider outpatient pulmonary function testing Status: Acute Code(s): J98.4 - Other disorders of lung (4) Acute kidney injury superimposed on chronic kidney disease: Baseline creatinine is 1.7 Current creatinine 2.0, which had improved some with diuresis. It has not improved further in the last several days History of partial nephrectomy x2 Status: Acute Code(s): N17.9 - Acute kidney failure, unspecified; N18.9 - Chronic kidney disease, unspecified (5) Anasarca: Diuresis as above Status: Acute Code(s): R60.1 - Generalized edema (6) Scrotal swelling: Secondary to fluid overload, scrotal elevation, wrapping Managing this has been difficult Status: Acute Code(s): N50.89 - Other specified disorders of the male genital organs (7) Hypertension: -Continue Norvasc 5 mg once daily -Coreg 25 mg twice daily -Hydralazine 50 3 times daily -I have added clonidine 0.1 mg 3 times daily -Added Imdur 30 mg once daily Status: Acute Code(s): I10 - Essential (primary) hypertension (8) CKD stage 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: Creatinine stabilized Hyperkalemia resolved Status: Acute Code(s): E11.22 - Type 2 diabetes mellitus with diabetic chronic kidney disease; N18.3 - Chronic kidney disease, stage 3 (moderate) (9) Uncontrolled diabetes mellitus: -High-dose sliding scale -Lantus 30 units in the morning Sugars markedly improved Status: Acute Qualifiers: Diabetes mellitus type: type 2 Glycemic state: with hyperglycemia Qualified Code(s): E11.65 - Type 2 diabetes mellitus with hyperglycemia Code(s): E11.65 - Type 2 diabetes mellitus with hyperglycemia (10) Non-ischemic cardiomyopathy: Previous echocardiograms poor quality. Suspect this will be the same. Status: Acute Code(s): I42.8 - Other cardiomyopathies (11) NSTEMI (non-ST elevated myocardial infarction): Appears to be type II Consult cardiology secondary to elevated troponin, significant heart failure. Status: Acute Code(s): I21.4 - Non-ST elevation (NSTEMI) myocardial infarction (12) Pneumonia: -De-escalate to doxycycline Status: Acute Code(s): J18.9 - Pneumonia, unspecified organism (13) Left leg cellulitis: Venous duplex negative No evidence of significant erythema currently. Linezolid was discontinued Status: Acute Code(s): L03.116 - Cellulitis of left lower limb Additional A&P Information Urinary retention. Melgar catheter. Continue Flomax, it would be best to leave Melgar catheter in on discharge and have him follow-up with urology. Anemia, stable Type 2 diabetes, sliding scale insulin Lovenox for DVT prophylaxis Attestations Medical Necessity Statement*: Patient requires continued hospitalization due to acute respiratory failure, fluid overload Coding Level of Care Code Acute Business Assistant for Chg Fwd Diagnoses Acute hypercapnic respiratory failure J96.02 Obstructive sleep apnea G47.33 Restrictive lung disease J98.4 Acute kidney injury superimposed on chronic kidney disease N17.9; N18.9 Anasarca R60.1 Scrotal swelling N50.89 Hypertension I10 CKD stage 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 E11.22; N18.3 Uncontrolled diabetes mellitus E11.65 Diabetes mellitus type: type 2 Glycemic state: with hyperglycemia Non-ischemic cardiomyopathy I42.8 NSTEMI (non-ST elevated myocardial infarction) I21.4 Pneumonia J18.9 Left leg cellulitis L03.116
[2019-10-13] MEDS: enoxaparin 40 mg/0.4 mL Syringe SUBCUT (19:09)
[2019-10-14] VITALS (8 sets, daily range): BP systolic 139–166; BP diastolic 71–82; PULSE 66–84; RESP 17–27; TEMP 36.6; O2SAT 90–95
[2019-10-14 04:03] LABS: Basophils # 0.1 10^3/uL (0.0-0.1); Basophils % 0.6 %; Eosinophils # 0.5 10^3/uL (0.0-0.8); Eosinophils % 6.2 %; Hematocrit 35.8 % (42.0-52.0); Mean Corpuscular HGB Conc 30.7 g/dL (30.0-36.0); Mean Corpuscular Hemoglobin 27.8 pg (28.0-34.0); Mean Corpuscular Volume 90.6 fL (80-94); Mean Platelet Volume 10.2 fL (7.4-10.4); Monocytes # 0.6 10^3/uL (0.2-0.9); Monocytes % 7.3 %; Neutrophils # 6.1 10^3/uL (1.8-7.7); Neutrophils % 73.8 %; Nucleated Red Blood Cells % 0 %; Platelet Count 223 10^3/cmm (130-400); Red Blood Count 3.95 10^6/uL (4.1-5.3); Red Cell Distribution Width 13.8 % (12.1-15.1); White Blood Count 8.2 10^3/uL (4.0-10.0)
[2019-10-14 04:19] LABS: Alanine Aminotransferase 24 U/L (0-41); Albumin Level 2.5 g/dL (3.5-5.2); Alkaline Phosphatase 64 IU/L (40-130); Anion Gap 9.7 (5-19); Aspartate Amino Transferase 25 U/L (0-40); Blood Urea Nitrogen 45 mg/dL (6-20); Calcium 9.7 mg/dL (8.5-10.5); Chloride 97 mmol/L (98-107); Globulin 4.9 g/dL (1.3-4.6); Glomerular Filtration Rate 35.7 mL/min (90-130); Glucose 192 mg/dL (65-115); Osmolality Calculated 307 mOsm/kg (285-295); Phosphorus 4.5 mg/dL (2.5-4.5); Potassium 3.7 mmol/L (3.5-5.1); Sodium 147 mmol/L (136-145); Total Bilirubin 0.4 mg/dL (0.15-1.2); Total Protein 7.4 g/dL (6.6-8.7)
[2019-10-14 04:57] LABS: Carbon Dioxide 37 mmol/L (22-29)
--- NOTE | 2019-10-14 05:07 | PC.NURSE ---
Patient requesting sandwich and Diet Coke. Diet Coke given;however, this nurse offered to find patient a sandwich. Patient states, That's ok...no problem. Will monitor.
[2019-10-14] MEDS: insulin glargine 100 units/1 mL 30 UNIT SUBCUT (06:30)
[2019-10-14 06:39] LABS: Glucose Point of Care 206 mg/dL (70-110)
[2019-10-14] MEDS: cloNIDine 0.1 mg Tablet PO ×2 (09:10→15:33)
[2019-10-14] MEDS: isosorbide mononitrate ER 30 mg Tablet PO (09:10)
[2019-10-14] MEDS: amlodipine 10 mg Tablet PO (09:10)
[2019-10-14] MEDS: citalopram 20 mg Tablet 40 MG PO (09:11)
[2019-10-14] MEDS: aspirin 81 mg EC Tablet PO (09:11)
[2019-10-14] MEDS: bumetanide 1 mg Tablet 2 MG PO ×2 (09:11→17:09)
[2019-10-14] MEDS: tamsulosin 0.4 mg Capsule PO (09:11)
[2019-10-14] MEDS: carvedilol 25 mg Tablet PO ×2 (09:11→17:09)
[2019-10-14] MEDS: doxycycline 100 mg Tablet PO ×2 (09:11→17:09)
[2019-10-14] MEDS: hyDRALAzine 25 mg Tablet 50 MG PO ×2 (09:11→15:35)
[2019-10-14] MEDS: HYDROcodone-acetaminophen 5-325 mg Tablet 1 TAB PO (09:11)
[2019-10-14] MEDS: atorvastatin 40 mg Tablet PO (09:11)
[2019-10-14] MEDS: multivitamin therapeutic Tablet 1 TAB PO (09:12)
[2019-10-14] MEDS: mupirocin oint 22 gm 1 APPLIC TOPICAL (09:31)
--- NOTE | 2019-10-14 09:39 | PC.NURSE ---
dressings changed to right knee and left great toe. no s/s of infection observed. noted slough to right knee. Cleansed with NS and placed a covaderm to right knee and optifoam to left great toe. Patient tolerated well.
--- NOTE | 2019-10-14 10:00 | P.PN_ITS ---
Subjective Subjective: Interval history: Patient has had good urine output ~ 4 L and is - 2.5 L from yesterday. No events on telemetry. He feels good. His scrotal and abdominal swelling has gone down and his SOB has improved. Medications: Reviewed: Yes Medication Review Details: Current Medications Acetaminophen (Tylenol) 650 mg PO Q6H PRN PRN Reason: Mild/Mod Pain Or Temp >/= 101 Hydrocodone Bitart/Acetaminophen ([place] 5-325 Mg) 1 tab PO Q4H PRN PRN Reason: MODERATE PAIN Last Admin: 10/13/19 09:33 Dose: 1 tab Documented by: Amlodipine Besylate (Norvasc) 10 mg PO DAILY [facility] Last Admin: 10/13/19 09:15 Dose: 10 mg Documented by: Aspirin (Aspirin Ec) 81 mg PO DAILY [facility] Last Admin: 10/13/19 09:15 Dose: 81 mg Documented by: Atorvastatin Calcium (Lipitor) 40 mg PO DAILY [facility] Last Admin: 10/13/19 09:17 Dose: 40 mg Documented by: Bumetanide (Bumex) 2 mg PO BID [facility] Carvedilol (Coreg) 25 mg PO BID [facility] Last Admin: 10/13/19 09:17 Dose: 25 mg Documented by: Citalopram Hydrobromide (Celexa) 40 mg PO DAILY [facility] Last Admin: 10/13/19 09:17 Dose: 40 mg Documented by: Clonidine HCl (Catapres) 0.1 mg PO TID [facility] Last Admin: 10/13/19 09:16 Dose: 0.1 mg Documented by: Dextrose (D50w) 25 ml IVP ONCE PRN; Protocol PRN Reason: hypoglycemia protocol Dextrose (D50w) 50 ml IVP PRN PRN; Protocol PRN Reason: hypoglycemia protocol Doxycycline Monohydrate (Vibramycin) 100 mg PO BID [facility]; Protocol Last Admin: 10/13/19 09:15 Dose: 100 mg Documented by: Enoxaparin Sodium (Lovenox) 40 mg SUBCUT Q24H [facility] Last Admin: 10/12/19 20:58 Dose: 40 mg Documented by: Glucagon (Glucagen) 1 mg IM ONCE PRN; Protocol PRN Reason: Adult Acute Hypoglycemia Prot. Hydralazine HCl (Apresoline) 50 mg PO TID [facility] Last Admin: 10/13/19 09:15 Dose: 50 mg Documented by: Dextrose (D5w) 500 mls @ 100 mls/hr IV ONCE PRN; Protocol PRN Reason: Adult Acute Hypoglycemia Prot Insulin Aspart (Novolog) 0 unit SUBCUT TIDWM [facility]; Protocol Last Admin: 10/13/19 11:47 Dose: Not Given Documented by: Insulin Aspart (Novolog) 0 unit SUBCUT BEDTIME [facility]; Protocol Last Admin: 10/12/19 20:58 Dose: 4 unit Documented by: Insulin Glargine (Lantus) 30 unit SUBCUT QAM [facility] Last Admin: 10/13/19 06:11 Dose: 30 unit Documented by: Isosorbide Mononitrate (Imdur) 30 mg PO DAILY [facility] Last Admin: 10/13/19 12:47 Dose: 30 mg Documented by: Metolazone (Zaroxolyn) 5 mg PO DAILY [facility] Last Admin: 10/11/19 09:01 Dose: 5 mg Documented by: Multivitamins Therapeutic (Multivitamin Tab) 1 tab PO DAILY [facility] Last Admin: 10/13/19 09:16 Dose: 1 tab Documented by: Mupirocin (Bactroban) 1 applic TOPICAL DAILY [facility] Last Admin: 10/13/19 09:24 Dose: 1 applic Documented by: Mupirocin (Bactroban) 1 applic TOPICAL DAILY PRN PRN Reason: IF BANDAGE FALLS OFF Non-Formulary Medication- Gabapentin 600mg Tablet 1.5 each PO QPM [facility] Last Admin: 10/13/19 09:20 Dose: 1.5 each Documented by: Non-Formulary Medication- Gabapentinn 600mg Tablet 1 cap PO QAM [facility] Last Admin: 10/13/19 06:12 Dose: 1 cap Documented by: Ondansetron HCl (Zofran) 4 mg IVP Q4H PRN PRN Reason: NAUSEA AND VOMITING Last Admin: 10/09/19 21:12 Dose: 4 mg Documented by: Oxymetazoline HCl (Afrin) 2 spray NOSTRIL-B Q12H PRN PRN Reason: NASAL CONGESTION Last Admin: 10/13/19 01:48 Dose: 2 spray Documented by: Tamsulosin HCl (Flomax) 0.4 mg PO DAILY [facility] Last Admin: 10/13/19 09:16 Dose: 0.4 mg Documented by: Trazodone HCl (Desyrel) 100 mg PO BEDTIME PRN PRN Reason: INSOMNIA Last Admin: 10/12/19 23:46 Dose: 100 mg Documented by: Vitals/I&O/Wt Last Vital Signs Temp 97.9 F 10/14/19 03:00 Pulse 84 10/14/19 07:00 Resp 27 H 10/14/19 07:00 BP 161/79 10/14/19 09:10 Pulse Ox 91 10/14/19 07:00 10/13/19 10/14/19 10/14/19 22:59 06:59 14:59 Intake Total 540 / 1140 222 / 1362 240 / 240 Output Total 1000 / 2100 1900 / 4000 Balance -460 / -960 -1678 / -2638 240 / 240 Weight last 48 hrs Weight 365 lb 6.4 oz Weight 361 lb 6.4 oz Physical Exam Narrative: EXAM NARRATIVE: COMMON NORMALS: morbidly obese, oriented x3 and alert GENERAL APPEARANCE: morbidly obese, cooperative, comfortable, well kempt and well hydrated HENNY COMMON NORMALS: hearing grossly normal bilaterally, external ears normal and moist oral mucous membranes COMMON NORMALS: EOMs intact bilaterally and no scleral icterus GENERAL EYE: normal appearance of both eyes Resp AUSCULTATION: chest clear to auscultation Cardio COMMON NORMALS: regular rate, regular rhythm, S1 normal heart sound, S2 normal heart sound and peripheral pulses 2+ throughout PALPATION: normal PMI RATE: regular rate RHYTHM: regular rhythm HEART SOUNDS: S1 normal, S2 normal, no click, no gallops and no murmurs BRUITS: no carotid bruits PERIPHERAL PULSES: pulses 2+ throughout and radial pulses present GI COMMON NORMALS: softer to palpation, obese, distended AUSCULTATION: Yes normoactive bowel sounds PALPATION: Yes soft, No tender, No guarding and No rigid Extremity GENERAL: No clubbing, No cyanosis, Yes edema (1+ diffuse edema extending above knees, scrotal edema (improved); and No pallor Neuro COMMON NORMALS: oriented x3, CN's II-XII intact bilaterally and no focal motor deficits SENSORIUM/ORIENTATION: Yes alert Urinary Catheter Management^: Melgar: Cath Placed During This Visit: yes Reason for Continuing Indwelling Catheter: Other Urinary Catheter Date of Insertion: 10/04/19 Urinary Catheter Time of Insertion: 18:45 Data : 10/14/19 02:55 10/14/19 02:55 A&P Assessment and plan (1) Acute on chronic diastolic (congestive) heart failure: Likely a product of dietary indiscretion and accelerated HTN. -UO ~44L and net negative ~31 L LOS, stop lasix and started on bumex 2 mg twice a day. -Fluid restriction to 1.5 L /day. -counselled extensively on salt and fluid restriction. -Stable to be discharged home. -Follow up with me in [facility] in 1-2week with BMP, Mg, BNP in 1 week. Status: Acute Code(s): I50.33 - Acute on chronic diastolic (congestive) heart failure (2) Acute hypercapnic respiratory failure: Requiring BiPaP at night Status: Acute Code(s): J96.02 - Acute respiratory failure with hypercapnia (3) NSTEMI (non-ST elevated myocardial infarction): Type 2 in setting of decompensated CHF Status: Acute Code(s): I21.4 - Non-ST elevation (NSTEMI) myocardial infarction (4) Accelerated hypertension: continue coreg, amlodipine, hydralazine and clonidine. Status: Acute Code(s): I10 - Essential (primary) hypertension (5) Anasarca: improved significantly. Status: Acute Code(s): R60.1 - Generalized edema (6) Acute kidney injury superimposed on chronic kidney disease: Cardiorenal in setting of decompensated CHF. -baseline Creatinine-1.7. Creatinine stable at 2. BUN improving. Status: Acute Code(s): N17.9 - Acute kidney failure, unspecified; N18.9 - Chronic kidney disease, unspecified (7) Uncontrolled diabetes mellitus: Status: Acute Qualifiers: Diabetes mellitus type: type 2 Glycemic state: with hyperglycemia Qualified Code(s): E11.65 - Type 2 diabetes mellitus with hyperglycemia Code(s): E11.65 - Type 2 diabetes mellitus with hyperglycemia Additional A&P Information Scrotal edema: improving Pneumonia: on antibiotics Left leg cellulitis: treated Extremely severe obstructive sleep apnea currently on BiPAP; severe hypoxemia noted on split study. He would benefit more from noninvasive ventilation. Dyslipidemia Chronic anemia Morbid obesity Normocytic anemia Urinary retention: Currently Foleys in place. Plan to discharge him with Melgar in situ. Attestations Medical Necessity Statement*: Stable to be discharged home. Coding Level of Care Code Acute In Flight Crew Member for Chg Fwd Diagnoses Acute on chronic diastolic (congestive) heart failure I50.33 Acute hypercapnic respiratory failure J96.02 NSTEMI (non-ST elevated myocardial infarction) I21.4 Accelerated hypertension I10 Anasarca R60.1 Acute kidney injury superimposed on chronic kidney disease N17.9; N18.9 Uncontrolled diabetes mellitus E11.65 Diabetes mellitus type: type 2 Glycemic state: with hyperglycemia
[2019-10-14 11:50] LABS: Glucose Point of Care 174 mg/dL (70-110)
--- NOTE | 2019-10-14 12:25 | PC.RESP ---
Patient given Pulmonary Rehab information.
--- NOTE | 2019-10-14 13:28 | PM.DCS ---
Discharge Providers Date of Admission: 10/04/19 17:19 Date of Discharge: October 14, 2019 Attending Provider at Admission: Julio C Bal MD Attending Provider at Discharge: Julio C Bal MD Primary Care Provider: Sulma Wetzel MD Diagnoses at Discharge Discharge Diagnosis (1) Acute on chronic diastolic (congestive) heart failure: Status: Acute (2) Acute hypercapnic respiratory failure: Status: Acute (3) NSTEMI (non-ST elevated myocardial infarction): Status: Acute (4) Accelerated hypertension: Status: Acute (5) Anasarca: Status: Acute (6) Acute kidney injury superimposed on chronic kidney disease: Status: Acute (7) Uncontrolled diabetes mellitus: Status: Acute Qualifiers: Diabetes mellitus type: type 2 Glycemic state: with hyperglycemia Qualified Code(s): E11.65 - Type 2 diabetes mellitus with hyperglycemia Reason for Visit Reason for Visit: Reason For Visit: CHF; COPD Hospital Course Hospital Course: Akil Velasco is a 49 year old male poorly controlled insulin-dependent type 2 diabetes mellitus, hypertension, congestive heart failure, CKD stage III, diabetic peripheral neuropathy, recently diagnosed severe obstructive sleep apnea who presents to the emergency room due to complaints of worsening shortness of breath, worsening anasarca, worsening lower extremity edema, worsening scrotal swelling. Patient was admitted for acute on chronic diastolic congestive heart failure exacerbation, received IV diuresis, fluid restrictions, BiPAP therapy, patient had a quite slow clinical progress, was admitted for roughly 10 days, diuresed about 44 L of fluid, net 31 L. Patient was discharged with Bumex 2 mg twice daily, fluid restriction still 1.5 L/day, salt and fluid restrictions, daily weights, and to follow-up with cardiology in 1 week. Patient was also admitted for acute respiratory failure secondary to obstructive sleep apnea and obesity hypoventilation syndrome. Patient qualifies for CPAP, even BiPAP, but due to affordability there is issues in terms of cost. Several options were presented the patient, patient stated that he is working on the finances to possibly purchase a CPAP machine or even BiPAP. I advised patient that having noninvasive ventilation would be diane to reduce preload, help with his sleep apnea, decrease his risk of future admissions. Patient was also admitted for a non-ST elevation myocardial infarct on his admission, likely secondary to diastolic CHF, medically managed. For his generalized edema, anasarca, improved on discharge. Patient continues to have a fair amount of scrotal swelling, continue conservative measures, scrotal elevation, scrotal wraps. Given patient's significant scrotal swelling, and ongoing need for diuresis, the decision was made to keep in Espinal catheter for at least another week, with a follow-up a Dr. Oliva as outpatient. Patient also had elevated blood pressures during admission, requiring multiple medication adjustments and additions. Physical Exam Const: COMMON NORMALS: no apparent distress and oriented x3 GENERAL APPEARANCE: cooperative and comfortable HENMT: COMMON NORMALS: normocephalic HEAD & SCALP: normocephalic Neck/C-Spine: COMMON NORMALS: full ROM, no lymphadenopathy, no JVD and thyroid normal THYROID: thyroid normal Lymph: LYMPHATIC: no lymphadenopathy noted Resp: COMMON NORMALS: normal respiratory effort, no retractions, no use of accessory muscles and clear to auscultation bilaterally AUSCULTATION: clear to auscultation bilaterally Cardio: COMMON NORMALS: no JVD, regular rate, regular rhythm, S1 normal heart sound, S2 normal heart sound, no gallops, no clicks and no murmurs RATE: regular rate RHYTHM: regular rhythm HEART SOUNDS: S1 normal and S2 normal GI: COMMON NORMALS: normal to inspection, nondistended, normoactive bowel sounds, soft to palpation, non-tender, no hepatosplenomegaly, no masses and no bruits INSPECTION: Yes anasarca present PALPATION: Yes soft and Yes no hepatosplenomegaly : OTHER: Scrotal swelling Extremity: COMMON NORMALS: normal to inspection, full ROM, normal capillary refill, no clubbing, cyanosis or edema, no calf tenderness and no pedal edema Neuro: COMMON NORMALS: oriented x3 Urinary Catheter Management^: Espinal: Cath Placed During This Visit: yes Reason for Continuing Indwelling Catheter: Other Urinary Catheter Date of Insertion: 10/04/19 Urinary Catheter Time of Insertion: 18:45 Discharge Data Data Completed and Pending: Completed Studies During Hospitalization Category Date Time Status CT chest abd pel wo con Routine Cat Scan 10/04/19 18:13 Completed XR chest 1V jonas ble [id number] Stat Exams 10/04/19 16:05 Completed CV echo complete* [id number] Routine Ultrasound 10/05/19 17:59 [place] [id number] Routin e Ultrasound 10/05/19 18:15 Completed Labs from last 24 hours 10/14/19 10/14/19 10/14/19 11:39 06:27 02:55 WBC RBC Hgb Hct MCV MCH MCHC RDW Plt Count MPV Neut % (Auto) Lymph % (Auto) Gibson % (Auto) Eos % (Auto) Baso % (Auto) Neut # (Auto) Lymph # (Auto) Gibson # (Auto) Eos # (Auto) Baso # (Auto) Nucleated RBC % (a uto) Nucleated RBCs # Sodium 147 H Potassium 3.7 Chloride 97 L Carbon Dioxide 37 H Anion Gap 9.7 BUN 45 H Creatinine 2.0 H GFR Calculation 35.7 L Glucose 192 H POC Glucose 174 206 Calculated Osmolal ity 307 H Calcium 9.7 Phosphorus 4.5 Magnesium 2.0 Total Bilirubin 0.4 AST 25 ALT 24 Alkaline Phosphata se 64 Total Protein 7.4 Albumin 2.5 L Globulin 4.9 H 10/14/19 10/13/19 02:55 16:39 WBC 8.2 RBC 3.95 L Hgb 11.0 L Hct 35.8 L MCV 90.6 MCH 27.8 L MCHC 30.7 RDW 13.8 Plt Count 223 MPV 10.2 Neut % (Auto) 73.8 Lymph % (Auto) 12.0 Gibson % (Auto) 7.3 Eos % (Auto) 6.2 Baso % (Auto) 0.6 Neut # (Auto) 6.1 Lymph # (Auto) 1.0 Gibson # (Auto) 0.6 Eos # (Auto) 0.5 Baso # (Auto) 0.1 Nucleated RBC % (a uto) 0 Nucleated RBCs # 0.0 Sodium Potassium Chloride Carbon Dioxide Anion Gap BUN Creatinine GFR Calculation Glucose POC Glucose 169 Calculated Osmolal ity Calcium Phosphorus Magnesium Total Bilirubin AST ALT Alkaline Phosphata se Total Protein Albumin Globulin Vitals: Last Vital Signs Temp 97.9 F 10/14/19 03:00 Pulse 78 10/14/19 11:00 Resp 18 10/14/19 11:00 BP 139/71 10/14/19 11:00 Pulse Ox 91 10/14/19 11:00 Discharge Plan Discharge Patient Disposition: Home, Self-Care Condition: Stable Prescriptions: New clonidine HCl 0.1 mg Tablet 0.1 mg PO TID 30 Days Qty: 90 RF: 0 Lantus U-100 Insulin 100 unit/mL Solution 30 unit SUBCUT QAM 30 Days Qty: 9 RF: 0 hydralazine 25 mg Tablet 50 mg PO TID 60 Days Qty: 360 RF: 0 aspirin 81 mg Tablet,Delayed Release (Dr/Ec) 81 mg PO DAILY 30 Days Qty: 30 RF: 0 doxycycline monohydrate 100 mg Tablet 100 mg PO BID 5 Days Qty: 10 RF: 0 amlodipine 10 mg Tablet 10 mg PO DAILY 30 Days Qty: 30 RF: 0 Novolog U-100 Insulin aspart 100 unit/mL Solution 0 unit SUBCUT TIDWM 30 Days Qty: 10 RF: 0 tamsulosin 0.4 mg Capsule 0.4 mg PO DAILY 30 Days Qty: 30 RF: 0 Klor-Con M20 20 mEq tablet,ER particles/crystals 20 meq PO BID 30 Days Qty: 60 RF: 0 isosorbide mononitrate 30 mg tablet extended release 24 hr 30 mg PO DAILY 30 Days Qty: 30 RF: 0 bumetanide 2 mg tablet 2 mg PO BID 30 Days Qty: 60 RF: 0 Continued (DME) CAM BOOT Qty: 1 RF: 0 gabapentin 600 mg tablet See Rx Instructions .ROUTE .COMPLEX RF: 0 multivitamin Capsule 1 cap PO DAILY RF: 0 atorvastatin 80 mg tablet 40 mg PO DAILY 30 Days Qty: 30 RF: 1 carvedilol 25 mg tablet 25 mg PO BID 30 Days Qty: 60 RF: 3 citalopram [Celexa] 40 mg tablet 40 mg PO DAILY 14 Days Qty: 14 RF: 0 Discontinued furosemide 40 mg tablet 40 mg PO DAILY RF: 0 amlodipine 2.5 mg tablet 2.5 mg PO DAILY Qty: 30 RF: 3 bumetanide 2 mg Tablet 1 mg PO DAILY 30 Days Qty: 30 RF: 0 aspirin 325 mg Tablet 325 mg PO DAILY 30 Days Qty: 30 RF: 0 gabapentin 600 mg tablet See Rx Instructions .ROUTE .COMPLEX RF: 0 Discharge Orders: Discharge Order (Routine); Ordered 10/13/19 Ordered By: Julio C Bal Other Ambulatory Orders: Comprehensive Metabolic Panel (Routine) Timeframe: 1 Week Facility: [facility] - Location: Lab - Main Lab Ordered By: Julio C Bal Magnesium (Routine) Timeframe: 1 Week Facility: [facility] - Location: Lab - Main Lab Ordered By: Julio C Bal NT Pro B Type Natriuretic Pept (Routine) Timeframe: 1 Week Facility: [facility] - Location: Lab - Main Lab Ordered By: Julio C Bal DME: CPAP (Order) Location: None Selected Ordered By: Julio C Bal Referrals: [facility] [Outside] Sulma Wetzel MD [Primary Care Provider] - 4-7 days (You have a hospital followup with Dr. Wetzel at [facility] on October 19 at 9:00am. Any questions or appointment changes, please call them at [phone]) Eusebio Oliva MD [Physician] - 2 weeks ([facility] will be calling to set an appointment with Dr. Oliva. If you do not hear from them by tomorrow afternoon, please call them at [phone]) Rosie Ivey MD [Physician] - 7-10 days (Please, keep your follow-up appointment with Dr. Ivey on October 19 at 9:15a.m. If, you have any questions or need to reschedule. Please, call ) Discharge Diet: Cardiac Discharge Activity: Resume usual activity Patient Instructions: Metolazone (By mouth), Clonidine (By mouth), Doxycycline (By mouth), Potassium Chloride (By mouth), Aspirin (By mouth), Hydralazine (By mouth), Amlodipine (By mouth), Isosorbide Mononitrate (By mouth), Tamsulosin (By mouth), Insulin Aspart, Recombinant (Injection), Insulin Glargine (Injection), Myocardial Infarction (DC), Heart Failure (DC), Heart Failure (GEN), Acute Kidney Injury (DC), Hydrocele (GEN), Chronic Kidney Disease (DC), Diabetes Mellitus Type 2 in Adults (DC), Using Oxygen at Home (DC), Using Oxygen at Home (GEN), Chronic Wound Care (DC), Hypertension (DC), Metabolic Acidosis (GEN), CHF Stoplight, Obstructive Sleep Apnea Activity Restrictions/Additional Instructions: -Please use bumetanide 2 mg twice daily -daily weights, fluid restricion 1500ml, leg elevation, scroal elvevation, scrotal wraps - will keep espinal in, follow up [facility] -follow up with dr. martin in 1 weeek -follow up with cardiology in 1-2 weeks -need better blood pressure control, add blood pressure medication as needed Discharge Attestations Time Spent in Discharge Care*: less than 30 min Status at Discharge: Cognitive status at discharge: cognitively intact, Behavioral status at discharge: cooperative, Quality Metrics Clinical Quality Measures During this hospital stay, did patient experience: None Coding Level of Care Code Acute Fitting Room Checker for Chg Fwd Diagnoses Acute on chronic diastolic (congestive) heart failure I50.33 Acute hypercapnic respiratory failure J96.02 NSTEMI (non-ST elevated myocardial infarction) I21.4 Accelerated hypertension I10 Anasarca R60.1 Acute kidney injury superimposed on chronic kidney disease N17.9; N18.9 Uncontrolled diabetes mellitus E11.65 Diabetes mellitus type: type 2 Glycemic state: with hyperglycemia
--- NOTE | 2019-10-14 13:35 | PC.NURSE ---
Reinforced CHF education. Patient verbalized understanding by stating, I will try to avoid quick microwave foods and fast food. It will be hard because that is all I eat. Patient also stated he would watch his weight and swelling and inform his PCP of changes.
--- NOTE | 2019-10-14 14:03 | PM.PN ---
Subjective Subjective: Interval history: Patient is ready to be discharged today, is eager to go home, his abdominal wall edema has gone down his lower extremity edema has gone down Unfortunate was notified by the nurses, that patient needs an overnight pulse oximeter, in order for him to get his noninvasive pressure ventilation, will have to stay another night Vitals/I&O/Wt Last Vital Signs Temp 97.9 F 10/14/19 03:00 Pulse 78 10/14/19 11:00 Resp 18 10/14/19 11:00 BP 139/71 10/14/19 11:00 Pulse Ox 91 10/14/19 11:00 10/13/19 10/14/19 10/14/19 22:59 06:59 14:59 Intake Total 540 / 1140 222 / 1362 360 / 360 Output Total 1000 / 2100 1900 / 4000 1300 / 1300 Balance -460 / -960 -1678 / -2638 -940 / -940 Weight last 48 hrs Weight 165.743 kg Weight 163.928 kg Physical Exam Const: COMMON NORMALS: no apparent distress and oriented x3 GENERAL APPEARANCE: cooperative and comfortable HENMT: COMMON NORMALS: normocephalic HEAD & SCALP: normocephalic Neck/C-Spine: COMMON NORMALS: no JVD Lymph: LYMPHATIC: no lymphadenopathy noted Resp: COMMON NORMALS: normal respiratory effort, no retractions, no use of accessory muscles and clear to auscultation bilaterally AUSCULTATION: clear to auscultation bilaterally Cardio: COMMON NORMALS: no JVD, regular rate, regular rhythm, S1 normal heart sound, S2 normal heart sound, no gallops, no clicks and no murmurs RATE: regular rate RHYTHM: regular rhythm HEART SOUNDS: S1 normal and S2 normal GI: COMMON NORMALS: normal to inspection, nondistended, normoactive bowel sounds, soft to palpation, non-tender, no hepatosplenomegaly, no masses and no bruits PALPATION: Yes soft and Yes no hepatosplenomegaly Extremity: COMMON NORMALS: normal to inspection, full ROM, normal capillary refill, no clubbing, cyanosis or edema, no calf tenderness and no pedal edema Neuro: COMMON NORMALS: oriented x3 Urinary Catheter Management^: Melgar: Cath Placed During This Visit: yes Reason for Continuing Indwelling Catheter: Other Urinary Catheter Date of Insertion: 10/04/19 Urinary Catheter Time of Insertion: 18:45 Data : 10/14/19 02:55 10/14/19 02:55 A&P Assessment and plan (1) Acute on chronic diastolic (congestive) heart failure: Status: Acute Code(s): I50.33 - Acute on chronic diastolic (congestive) heart failure (2) Acute hypercapnic respiratory failure: Consistent with acute systolic and diastolic heart failure. Continue diuresis with switch to Bumex 2 mg every 12 hours p.o. Renal function has stabilized, currently 2.0 Wean oxygen as tolerated Continue BiPAP at night Status: Acute Code(s): J96.02 - Acute respiratory failure with hypercapnia (3) NSTEMI (non-ST elevated myocardial infarction): Appears to be type II Consult cardiology secondary to elevated troponin, significant heart failure. Status: Acute Code(s): I21.4 - Non-ST elevation (NSTEMI) myocardial infarction (4) Accelerated hypertension: Status: Acute Code(s): I10 - Essential (primary) hypertension (5) Anasarca: Diuresis as above Status: Acute Code(s): R60.1 - Generalized edema (6) Acute kidney injury superimposed on chronic kidney disease: Baseline creatinine is 1.7 Current creatinine 2.0, which had improved some with diuresis. It has not improved further in the last several days History of partial nephrectomy x2 Status: Acute Code(s): N17.9 - Acute kidney failure, unspecified; N18.9 - Chronic kidney disease, unspecified (7) Uncontrolled diabetes mellitus: -High-dose sliding scale -Lantus 30 units in the morning Sugars markedly improved Status: Acute Qualifiers: Diabetes mellitus type: type 2 Glycemic state: with hyperglycemia Qualified Code(s): E11.65 - Type 2 diabetes mellitus with hyperglycemia Code(s): E11.65 - Type 2 diabetes mellitus with hyperglycemia Additional A&P Information Urinary retention. Melgar catheter. Continue Flomax, it would be best to leave Melgar catheter in on discharge and have him follow-up with urology. Anemia, stable Type 2 diabetes, sliding scale insulin Lovenox for DVT prophylaxis Attestations Medical Necessity Statement*: Requires continued hospitalization due to acute respiratory failure, requires overnight pulse ox Coding Level of Care Code Acute Pool Installer for Chg Fwd Diagnoses Acute on chronic diastolic (congestive) heart failure I50.33 Acute hypercapnic respiratory failure J96.02 NSTEMI (non-ST elevated myocardial infarction) I21.4 Accelerated hypertension I10 Anasarca R60.1 Acute kidney injury superimposed on chronic kidney disease N17.9; N18.9 Uncontrolled diabetes mellitus E11.65 Diabetes mellitus type: type 2 Glycemic state: with hyperglycemia
[2019-10-14 14:38] LABS: ABG PH Result 7.44 (7.35-7.45); Alveolar-Arterial Oxygen Gradi 101.1 mmHg (5-10); Arterial Blood Gas Hematocrit 32.2 % (42-52); Base Excess ABG 15.8 mmol/L (-2.0-2.0); Blood Gas Allen Test Pos; Blood Gas Operator Identificat glc; Blood Gas Sample Site Radial, left; Blood Gas Sample Type Arterial; Carboxyhemoglobin 1.2 %THgb (0.4-20.1); HCO3 ABG 42.3 mmol/L (22-26); HGB O2 Sat 93.4 % (95-100); Ionized Calcium Level - ABG 1.2 mmol/L (1.1-1.4); Oxygen Device NC; Oxygen Saturation ABG 95.6; Potassium Level - ABG 3.6 mmol/L (3.5-5.0); Total Hemoglobin 10.5 g/dL (14-18)
[2019-10-14 14:39] LABS: ABG PCO2 62.2 mmHg (35-45)
[2019-10-14 16:31] LABS: Glucose Point of Care 138 mg/dL (70-110)
== END 2019-10-14 18:20 | disposition home or self-care (01) | DRG 280 ==
LOC: ER 15:28 → ICU 17:34 → CSU 10-06 17:38
PROVIDERS: Internal Medicine; Admitting Provider Family Medicine; Emergency Provider Family Medicine; Family Provider Internal Medicine; PCP Internal Medicine; Visit Provider Family Medicine
DX: I13.0 Hypertensive heart and chronic kidney disease with heart failure and stage 1 through stage 4 chronic kidney disease, or unspecified chronic kidney disease (principal); I50.33 Acute on chronic diastolic (congestive) heart failure; I21.A1 Myocardial infarction type 2; J96.02 Acute respiratory failure with hypercapnia; J18.9 Pneumonia, unspecified organism; N17.9 Acute kidney failure, unspecified; E66.2 Morbid (severe) obesity with alveolar hypoventilation; Z68.42 Body mass index [BMI] 45.0-49.9, adult; L03.116 Cellulitis of left lower limb; E11.22 Type 2 diabetes mellitus with diabetic chronic kidney disease; E11.65 Type 2 diabetes mellitus with hyperglycemia; Z79.4 Long term (current) use of insulin; J44.9 Chronic obstructive pulmonary disease, unspecified; N18.3 Chronic kidney disease, stage 3 (moderate); N50.89 Other specified disorders of the male genital organs; Z79.82 Long term (current) use of aspirin; R33.9 Retention of urine, unspecified; D64.9 Anemia, unspecified; E78.5 Hyperlipidemia, unspecified; S92.912D Unspecified fracture of left toe(s), subsequent encounter for fracture with routine healing; X58.XXXD Exposure to other specified factors, subsequent encounter; E11.42 Type 2 diabetes mellitus with diabetic polyneuropathy; I42.8 Other cardiomyopathies; E11.51 Type 2 diabetes mellitus with diabetic peripheral angiopathy without gangrene; Z85.9 Personal history of malignant neoplasm, unspecified; J98.4 Other disorders of lung; E87.5 Hyperkalemia
CPT/HCPCS: 12345; 36415; 36416; 36600; 51702; 71045; 71250; 74176; 80048; 80051; 80053; 81001; 82803; 82810; 82962; 83735; 83880; 83986; 84100; 84145; 84484; 85025; 87040; 87086; 87641; 93005; 93306; 93970; 94640; 94660; 96372; 96375; 97110; 97116; 97140; 97161; 97167; 97530; 97535; 99283; J0360; J0696; J1650; J1815; J1940; J2020; J2405; J2543; J7050

== ENCOUNTER → 2019-10-20 10:18 | Outpatient (BNVA) | payer MEDICAID, SELFPAY | PROVIDERS: PCP Internal Medicine; Visit Provider Internal Medicine Cardiovascular Disease | DX: I13.0 Hypertensive heart and chronic kidney disease with heart failure and stage 1 through stage 4 chronic kidney disease, or unspecified chronic kidney disease (principal); I50.33 Acute on chronic diastolic (congestive) heart failure; N17.9 Acute kidney failure, unspecified; E11.65 Type 2 diabetes mellitus with hyperglycemia; E11.22 Type 2 diabetes mellitus with diabetic chronic kidney disease; N18.3 Chronic kidney disease, stage 3 (moderate); R33.9 Retention of urine, unspecified; G47.33 Obstructive sleep apnea (adult) (pediatric) | CPT/HCPCS: 80048; 83735; 83880 ==

== ENCOUNTER → 2019-10-28 12:55 | Outpatient (BNVA) | payer MEDICAID, SELFPAY | PROVIDERS: Family Provider Internal Medicine; PCP Internal Medicine; Visit Provider Urology | DX: R33.9 Retention of urine, unspecified (principal); N50.89 Other specified disorders of the male genital organs | CPT/HCPCS: 81001 ==

== ENCOUNTER 2019-11-08 14:32 | Emergency (ER) | payer MEDICAID, SELFPAY | END 2019-11-08 20:03 | disposition admitted as inpatient to this hospital (09) | LOC: ER 11-13 13:37 | PROVIDERS: Emergency Provider Family Medicine; Family Provider Internal Medicine; PCP Internal Medicine | DX: J96.20 Acute and chronic respiratory failure, unspecified whether with hypoxia or hypercapnia (principal); I13.0 Hypertensive heart and chronic kidney disease with heart failure and stage 1 through stage 4 chronic kidney disease, or unspecified chronic kidney disease; E11.22 Type 2 diabetes mellitus with diabetic chronic kidney disease; N18.3 Chronic kidney disease, stage 3 (moderate); I50.33 Acute on chronic diastolic (congestive) heart failure; N17.9 Acute kidney failure, unspecified; R60.1 Generalized edema; N50.89 Other specified disorders of the male genital organs; E87.5 Hyperkalemia; I73.9 Peripheral vascular disease, unspecified; E11.42 Type 2 diabetes mellitus with diabetic polyneuropathy | CPT/HCPCS: 12345; 36600; 71045; 71250; 80053; 80306; 82805; 83605; 83880; 84484; 85025; 85378; 94660; 96365; 96367; 96372; 96375; 96376; 99282; 99291; A9270; J1940 ==

== ENCOUNTER 2019-11-08 14:32 | Inpatient (IN) | payer MEDICAID, SELFPAY ==
[2019-11-08] VITALS (7 sets, daily range): BP systolic 105–165; BP diastolic 77–98; PULSE 58–67; RESP 14–27; TEMP 36–36.6; O2SAT 53–98; BMI 46.1
--- NOTE | 2019-11-08 15:02 | XRR_ITS ---
PROCEDURE INFORMATION: Exam: XR Chest, 1 View Exam date and time: 11/08/2019 3:03 PM Age: 49 years old Clinical indication: Shortness of breath; Additional info: SOB TECHNIQUE: Imaging protocol: XR of the chest Views: 1 view. COMPARISON: CR XR chest 1V portable [id number] 10/04/2019 4:04 PM FINDINGS: Lungs: Poor inspiratory effort with some crowding of pulmonary markings and possible accentuation of the apparent heart size. Mild increased bilateral pulmonary opacities consistent with [id number] bilateral mid and lower lung field pneumonia versus atypical pulmonary edema/pulmonary vascular congestion. Pleural space: Unremarkable. No pleural effusion. No pneumothorax. Heart/Mediastinum: Borderline to mild cardiomegaly. Bones/joints: Unremarkable. Other findings: Lordotic chest x-ray. XR/XR chest 1V portable [id number] IMPRESSION: Borderline to mild cardiomegaly.
[2019-11-08 15:08] LABS: ABG PH Result 7.25 (7.35-7.45); Arterial Blood Gas Hematocrit 30.9 % (42-52); Base Excess ABG -0.1 mmol/L (-2.0-2.0); Blood Gas Allen Test Pos; Blood Gas Sample Site Radial, left; Blood Gas Sample Type Arterial; Carboxyhemoglobin 1.4 %THgb (0.4-20.1); HCO3 ABG 27.9 mmol/L (22-26); HGB O2 Sat 92.1 % (95-100); Methemoglobin 0.9 % (0.4-1.5); Oxygen Device NC; PO2 ABG 76.5 mmHg (80.0-100.0); Total Hemoglobin 10.1 g/dL (14-18)
[2019-11-08] MEDS: FUROsemide 10 mg/mL SDV 10mL 80 MG IVP (15:18)
[2019-11-08 15:33] LABS: Basophils # 0.1 10^3/uL (0.0-0.1); Basophils % 0.8 %; Eosinophils # 0.3 10^3/uL (0.0-0.8); Eosinophils % 3.9 %; Hematocrit 34.1 % (42.0-52.0); Hemoglobin 9.8 g/dL (11.7-16.6); Lymphocytes # 0.7 10^3/uL (0.8-4.8); Lymphocytes % 10.2 %; Mean Corpuscular HGB Conc 28.7 g/dL (30.0-36.0); Mean Corpuscular Hemoglobin 26.8 pg (28.0-34.0); Mean Corpuscular Volume 93.4 fL (80-94); Mean Platelet Volume 11.4 fL (7.4-10.4); Monocytes # 0.6 10^3/uL (0.2-0.9); Monocytes % 8.6 %; Nucleated Red Blood Cells % 0 %; Platelet Count 204 10^3/cmm (130-400); Red Blood Count 3.65 10^6/uL (4.1-5.3); White Blood Count 6.6 10^3/uL (4.0-10.0)
--- NOTE | 2019-11-08 15:51 | ED_ITS ---
HPI - SOB/Dyspnea General: Chief Complaint: Shortness of Breath/Dyspnea Stated Complaint: sob Time Seen by Provider: 11/08/19 14:49 Source: patient Mode of arrival: wheelchair Limitations: other (shortness of breath) History of Present Illness: HPI Narrative: This patient is a 49 year old male with a history of CHF, HTN, CKD, DM who presents to the ED with SOB. He states he has been admitted twice in the last month for CHF exacerbation and had been feeling quite well until about 2 days ago when he developed progressively worsening SOB. He has noticed weight gain, leg swelling, scrotal swelling, abdominal wall swelling. He uses oxygen at home at 2 lpm. On arrival in the ED his oxygen saturations were in the 60's on room air. MD elicited complaint: shortness of breath and cough Pertinent past history: congestive heart failure Onset (ago): day(s) (2) Timing: constant and progressively worsening Severity: severe Exacerbating factors: lying flat Relieving factors: nothing Known history of: congestive heart failure Associated symptoms: Reports cough and extremity pain (from leg swelling); Deny abdominal pain, chest congestion, chest pain, diaphoresis or dizziness Treatment prior to arrival: oxygen Review of Systems General: Reports: 10 or more systems reviewed and unremarkable except in HPI and below Const: Denies: diaphoresis Card: Denies: chest pain Resp: Denies: chest congestion GI: Denies: abdominal pain Musc: Reports: extremity pain (from leg swelling) Neuro: Denies: dizziness [facility] ED PFSH: Medical History (Updated 11/08/19 @ 21:32 by Colton Waller MD, 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 Congestive cardiac failure Diabetes Fracture of fifth metatarsal bone of left foot Fracture of fourth metatarsal bone of left foot Hypertension Laceration Metabolic alkalosis Neuropathy PVD (peripheral vascular disease) Type 2 diabetes mellitus with diabetic polyneuropathy Surgical History (Updated 11/08/19 @ 17:32 by Edil Bonner MD) H/O partial nephrectomy bilateral Hx of lymph node excision Social History (Updated 10/28/19 @ 12:53 by KATIE Arzate) Smoking and tobacco status: never smoked Alcohol intake: current Alcohol intake frequency: holidays/special occasions only Adopted: No Caregiver/support person: No Lives independently: No Household members: spouse Housing: House Marital status: Current occupational status: unemployed History of recent travel: No Current gender identity: Male Physical Exam Const: GENERAL APPEARANCE: lethargic, ill appearing and grossly edematous NUTRITIONAL APPEARANCE: obese ORIENTATION/CONSCIOUSNESS: Yes awake and Yes lethargic OTHER: On arrival into room 10 the patient was pastrana in color mildly confused, lethargic and his oxygen saturations dropped from the 60s to the 40s but improved when he was placed on a nonrebreather mask and inhaling 100% oxygen Resp: EFFORT & INSPECTION: No able to speak in complete sentences, Yes tachypneic, Yes decreased respiratory effort and Yes pursed lip breathing AUSCULTATION: rales and diminished lung sounds Cardio: COMMON NORMALS: regular rhythm, S1 normal heart sound and S2 normal heart sound RATE: bradycardic RHYTHM: regular rhythm HEART SOUNDS: S1 normal and S2 normal Extremity: NARRATIVE EXTREMITY EXAM: 3+ bilateral pitting pedal edema Neuro: SENSORIUM/ORIENTATION: Yes lethargic Course Consultations: Consultation #1: Discussed patient with Dr. Robertson, hospitalist. He kindly accepted the patient to his service. Patient should be tested for COVID-19 Time: 16:20 Vital Signs: Vital signs: Vital Signs Temperature 96.8 F L 11/08/19 14:39 Pulse Rate 63 11/08/19 20:19 Respiratory Rate 17 11/08/19 16:59 Blood Pressure 105/77 11/08/19 14:39 Pulse Oximetry 95 11/08/19 20:19 MDM - SOB/Dyspnea Lab Data: Labs: Lab Results 11/08/19 11/08/19 11/08/19 Range/Units 14:40 14:40 14:40 WBC 6.6 (4.0-10.0) 10^3/ uL RBC 3.65 L (4.1-5.3) 10^6/u L Hgb 9.8 L (11.7-16.6) g/dL Hct 34.1 L (42.0-52.0) % MCV 93.4 (80-94) fL MCH 26.8 L (28.0-34.0) pg MCHC 28.7 L (30.0-36.0) g/dL RDW 15.0 (12.1-15.1) % Plt Count 204 (130-400) 10^3/c mm MPV 11.4 H (7.4-10.4) fL Neut % (Auto) 76.0 % Lymph % (Auto) 10.2 % [place] % (Auto) 8.6 % Eos % (Auto) 3.9 % Baso % (Auto) 0.8 % Neut # (Auto) 5.0 (1.8-7.7) 10^3/u L Lymph # (Auto) 0.7 L (0.8-4.8) 10^3/u L [place] # (Auto) 0.6 (0.2-0.9) 10^3/u L Eos # (Auto) 0.3 (0.0-0.8) 10^3/u L Baso # (Auto) 0.1 (0.0-0.1) 10^3/u L Nucleated RBC % (a uto) 0 % Nucleated RBCs # 0.0 /100WBC D-Dimer 2.25 H (0-0.59) ug/mIFE U Specimen Type Sample Site ABG pH (7.35-7.45) ABG pCO2 (35-45) mmHg ABG pO2 (80.0-100.0) mmH g ABG HCO3 (22-26) mmol/L ABG Base Excess (-2.0-2.0) mmol/ L Jesus Test Hematocrit (42-52) % Hgb O2 Saturation (95-100) % Carboxyhemoglobin (0.4-20.1) %THgb Methemoglobin (0.4-1.5) % Total Hemoglobin (14-18) g/dL O2 Delivery Device O2 Liters/Min % Debit Agent ID Sodium 138 (136-145) mmol/L Potassium 6.7 H* (3.5-5.1) mmol/L Chloride 100 (98-107) mmol/L Carbon Dioxide 25 (22-29) mmol/L Anion Gap 19.7 H (5-19) BUN 100 H* D (6-20) mg/dL Creatinine 3.5 H (0.7-1.2) mg/dL GFR Calculation 18.7 L (90-130) mL/min Glucose 287 H (65-115) mg/dL Calculated Osmolal ity 297 H (285-295) mOsm/k g Lactic Acid (0.5-2.2) mmol/L Calcium 9.0 (8.5-10.5) mg/dL Total Bilirubin 0.3 (0.15-1.2) mg/dL AST 23 (0-40) U/L ALT 27 (0-41) U/L Alkaline Phosphata se 103 (40-130) IU/L Troponin T Baselin e (0-15) ng/mL NT-Pro-B Natriuret Pep 3778 H (0-125) pg/mL Total Protein 6.7 (6.6-8.7) g/dL Albumin 3.2 L (3.5-5.2) g/dL Globulin 3.5 (1.3-4.6) g/dL Urine Opiates Scre en (Negative) ng/mL Ur Barbiturates Sc reen (Negative) ng/mL Ur Phencyclidine S crn (Negative) ng/mL Ur Amphetamines Sc reen (Negative) ng/mL U Benzodiazepines Scrn (Negative) ng/mL Urine Cocaine Scre en (Negative) ng/mL U Marijuana (THC) Screen (Negative) ng/mL 11/08/19 11/08/19 11/08/19 Range/Units 14:40 14:40 14:57 WBC (4.0-10.0) 10^3/ uL RBC (4.1-5.3) 10^6/u L Hgb (11.7-16.6) g/dL Hct (42.0-52.0) % MCV (80-94) fL MCH (28.0-34.0) pg MCHC (30.0-36.0) g/dL RDW (12.1-15.1) % Plt Count (130-400) 10^3/c mm MPV (7.4-10.4) fL Neut % (Auto) % Lymph % (Auto) % [place] % (Auto) % Eos % (Auto) % Baso % (Auto) % Neut # (Auto) (1.8-7.7) 10^3/u L Lymph # (Auto) (0.8-4.8) 10^3/u L [place] # (Auto) (0.2-0.9) 10^3/u L Eos # (Auto) (0.0-0.8) 10^3/u L Baso # (Auto) (0.0-0.1) 10^3/u L Nucleated RBC % (a uto) % Nucleated RBCs # /100WBC D-Dimer (0-0.59) ug/mIFE U Specimen Type Arterial Sample Site Radial, left ABG pH 7.25 L (7.35-7.45) ABG pCO2 63.0 H* (35-45) mmHg ABG pO2 76.5 L (80.0-100.0) mmH g ABG HCO3 27.9 H (22-26) mmol/L ABG Base Excess -0.1 (-2.0-2.0) mmol/ L Jesus Test Pos Hematocrit 30.9 L (42-52) % Hgb O2 Saturation 92.1 L (95-100) % Carboxyhemoglobin 1.4 (0.4-20.1) %THgb Methemoglobin 0.9 (0.4-1.5) % Total Hemoglobin 10.1 L (14-18) g/dL O2 Delivery Device Nc O2 Liters/Min 6.0 % Debit Agent ID cak Sodium (136-145) mmol/L Potassium (3.5-5.1) mmol/L Chloride (98-107) mmol/L Carbon Dioxide (22-29) mmol/L Anion Gap (5-19) BUN (6-20) mg/dL Creatinine (0.7-1.2) mg/dL GFR Calculation (90-130) mL/min Glucose (65-115) mg/dL Calculated Osmolal ity (285-295) mOsm/k g Lactic Acid 2.1 (0.5-2.2) mmol/L Calcium (8.5-10.5) mg/dL Total Bilirubin (0.15-1.2) mg/dL AST (0-40) U/L ALT (0-41) U/L Alkaline Phosphata se (40-130) IU/L Troponin T Baselin e 196 H* (0-15) ng/mL NT-Pro-B Natriuret Pep (0-125) pg/mL Total Protein (6.6-8.7) g/dL Albumin (3.5-5.2) g/dL Globulin (1.3-4.6) g/dL Urine Opiates Scre en (Negative) ng/mL Ur Barbiturates Sc reen (Negative) ng/mL Ur Phencyclidine S crn (Negative) ng/mL Ur Amphetamines Sc reen (Negative) ng/mL U Benzodiazepines Scrn (Negative) ng/mL Urine Cocaine Scre en (Negative) ng/mL U Marijuana (THC) Screen (Negative) ng/mL 11/08/19 Range/Units 16:23 WBC (4.0-10.0) 10^3/ uL RBC (4.1-5.3) 10^6/u L Hgb (11.7-16.6) g/dL Hct (42.0-52.0) % MCV (80-94) fL MCH (28.0-34.0) pg MCHC (30.0-36.0) g/dL RDW (12.1-15.1) % Plt Count (130-400) 10^3/c mm MPV (7.4-10.4) fL Neut % (Auto) % Lymph % (Auto) % [place] % (Auto) % Eos % (Auto) % Baso % (Auto) % Neut # (Auto) (1.8-7.7) 10^3/u L Lymph # (Auto) (0.8-4.8) 10^3/u L [place] # (Auto) (0.2-0.9) 10^3/u L Eos # (Auto) (0.0-0.8) 10^3/u L Baso # (Auto) (0.0-0.1) 10^3/u L Nucleated RBC % (a uto) % Nucleated RBCs # /100WBC D-Dimer (0-0.59) ug/mIFE U Specimen Type Sample Site ABG pH (7.35-7.45) ABG pCO2 (35-45) mmHg ABG pO2 (80.0-100.0) mmH g ABG HCO3 (22-26) mmol/L ABG Base Excess (-2.0-2.0) mmol/ L Jesus Test Hematocrit (42-52) % Hgb O2 Saturation (95-100) % Carboxyhemoglobin (0.4-20.1) %THgb Methemoglobin (0.4-1.5) % Total Hemoglobin (14-18) g/dL O2 Delivery Device O2 Liters/Min % Debit Agent ID Sodium (136-145) mmol/L Potassium (3.5-5.1) mmol/L Chloride (98-107) mmol/L Carbon Dioxide (22-29) mmol/L Anion Gap (5-19) BUN (6-20) mg/dL Creatinine (0.7-1.2) mg/dL GFR Calculation (90-130) mL/min Glucose (65-115) mg/dL Calculated Osmolal ity (285-295) mOsm/k g Lactic Acid (0.5-2.2) mmol/L Calcium (8.5-10.5) mg/dL Total Bilirubin (0.15-1.2) mg/dL AST (0-40) U/L ALT (0-41) U/L Alkaline Phosphata se (40-130) IU/L Troponin T Baselin e (0-15) ng/mL NT-Pro-B Natriuret Pep (0-125) pg/mL Total Protein (6.6-8.7) g/dL Albumin (3.5-5.2) g/dL Globulin (1.3-4.6) g/dL Urine Opiates Scre en Negative (Negative) ng/mL Ur Barbiturates Sc reen Negative (Negative) ng/mL Ur Phencyclidine S crn Negative (Negative) ng/mL Ur Amphetamines Sc reen Negative (Negative) ng/mL U Benzodiazepines Scrn Negative (Negative) ng/mL Urine Cocaine Scre en Negative (Negative) ng/mL U Marijuana (THC) Screen Negative (Negative) ng/mL Imaging Data^: CXR: Radiologist's impression: [address] [address] XRay Report Signed Patient: Akil Velasco #: [id number] : 1970Acct#:[id number] Age/Sex: 49 / MADM Date: 11/08/19 Loc: ERRoom/Bed: Attending Dr: Ordering Provider/Ordering MD: Colton Waller MD, [facility] [place] Date of Service: 11/08/19 Procedure(s): XR chest 1V portable [id number] Accession Number(s): [id number] Report Number: [id number] PROCEDURE INFORMATION: Exam: XR Chest, 1 View Exam date and time: 11/08/2019 3:03 PM Age: 49 years old Clinical indication: Shortness of breath; Additional info: SOB TECHNIQUE: Imaging protocol: XR of the chest Views: 1 view. COMPARISON: CR XR chest 1V portable [id number] 10/04/2019 4:04 PM FINDINGS: Lungs: Poor inspiratory effort with some crowding of pulmonary markings and possible accentuation of the apparent heart size. Mild increased bilateral pulmonary opacities consistent with [id number] bilateral mid and lower lung field pneumonia versus atypical pulmonary edema/pulmonary vascular congestion. Pleural space: Unremarkable. No pleural effusion. No pneumothorax. Heart/Mediastinum: Borderline to mild cardiomegaly. Bones/joints: Unremarkable. Other findings: Lordotic chest x-ray. XR/XR chest 1V portable [id number] IMPRESSION: Borderline to mild cardiomegaly. Dictated By:Tim Lee MD Signed By:Tim Lee MDSigned Date/Time:11/08/19 1600 DD/ 1559 EKG Data^: EKG 1: Attestation: I personally reviewed and interpreted this EKG as follows: EKG Interpretation Date: 11/08/19 EKG interpretation time: 14:48 Prior EKG tracings: not available for review Interpretation: Sinus bradycardia HR 58. LAE No ST changes Discharge Plan Discharge Patient Disposition: Admitted As Inpatient Admit Provider: Edil Bonner Clinical Impression: Acute and chronic respiratory failure ([id number]), CHF exacerbation, Acute kidney injury superimposed on chronic kidney disease, Anasarca, Scrotal swelling, Acute hyperkalemia Condition: Stable Coding Level of Care Code ED Case Aide for Chg Fwd Exam Expanded Problem Focused
[2019-11-08 15:55] LABS: Alanine Aminotransferase 27 U/L (0-41); Albumin Level 3.2 g/dL (3.5-5.2); Alkaline Phosphatase 103 IU/L (40-130); Anion Gap 19.7 (5-19); Aspartate Amino Transferase 23 U/L (0-40); Carbon Dioxide 25 mmol/L (22-29); Chloride 100 mmol/L (98-107); Globulin 3.5 g/dL (1.3-4.6); Glomerular Filtration Rate 18.7 mL/min (90-130); Glucose 287 mg/dL (65-115); NT Pro B Type Natriuretic Pept 3778 pg/mL (0-125); Osmolality Calculated 297 mOsm/kg (285-295); Sodium 138 mmol/L (136-145); Total Bilirubin 0.3 mg/dL (0.15-1.2); Total Protein 6.7 g/dL (6.6-8.7)
[2019-11-08 15:58] LABS: Troponin(5th) Baseline 196 ng/mL (0-15)
[2019-11-08 15:59] LABS: Blood Urea Nitrogen 100 mg/dL (6-20); Potassium 6.7 mmol/L (3.5-5.1)
[2019-11-08 16:06] LABS: D Dimer 2.25 ug/mIFEU (0-0.59)
--- NOTE | 2019-11-08 16:23 | CTR_ITS ---
PROCEDURE INFORMATION: Exam: CT Chest Without Contrast Exam date and time: 11/08/2019 4:27 PM Age: 49 years old Clinical indication: Shortness of breath; Additional info: SOB, hypoxia TECHNIQUE: Imaging protocol: Computed tomography of the chest without contrast. Total DLP: 939.62 mGy-cm Radiation optimization: All CT scans at this facility use at least one of these dose optimization techniques: automated exposure control; mA and/or kV adjustment per patient size (includes targeted exams where dose is matched to clinical indication); or iterative reconstruction. COMPARISON: CR (CHEST, ) 11/08/2019 3:26 PM FINDINGS: Lungs: Mild to moderate groundglass opacities and/or interstitial opacities consistent with mild to moderate allergic pneumonitis, infectious pneumonitis or pulmonary edema. Pleural space: Unremarkable. No pneumothorax. No pleural effusion. Heart: Mild to moderate cardiomegaly. Severe calcified LAD and left circumflex coronary artery disease. Aorta: Unremarkable. No aortic aneurysm. Other veins: 19 mm portal vein suggesting possible portal hypertension. Lymph nodes: Mild mediastinal adenopathy and borderline bilateral cardiophrenic angle adenopathy which may be reactive. Spleen: Moderate 16.5 cm splenomegaly. Bones/joints: Unremarkable. No acute fracture. Soft tissues: Mild anasarca consistent with right heart failure versus hypoproteinemia versus renal failure. CT/CT chest [facility] [id number] IMPRESSION: 1. Mild to moderate groundglass opacities and/or interstitial opacities consistent with mild to moderate allergic pneumonitis, infectious pneumonitis or pulmonary edema. 2. Mild to moderate cardiomegaly. 3. Severe calcified LAD and left circumflex coronary artery disease. 4. Mild mediastinal adenopathy and borderline bilateral cardiophrenic angle adenopathy which may be reactive. 5. Mild anasarca consistent with right heart failure versus hypoproteinemia versus renal failure. 6. Moderate 16.5 cm splenomegaly. 7. 19 mm portal vein suggesting possible portal hypertension. Radiation Dose CTDIVOL = (mGy): DLP = 939.62 (mGy-cm)
[2019-11-08] MEDS: morphine 4 mg/mL SDV 1 mL IVP (16:59)
[2019-11-08 17:01] LABS: Lactic Sepsis W/Reflex 2.1 mmol/L (0.5-2.2)
--- NOTE | 2019-11-08 17:02 | ECG_ITS ---
Measurements Intervals [place] Rate: 58 P: 39 ID: [id number] QRS: 48 QRSD: 101 T: 44 QT: 450 QTc: 445 SINUS BRADYCARDIA POSSIBLE LEFT ATRIAL ENLARGEMENT [-0.1mV P WAVE IN V1/V2] LOW QRS VOLTAGE [QRS DEFLECTION < 0.5/1.0 mV IN LIMB/CHEST LEADS] PATTERN CONSISTENT WITH PULMONARY DISEASE Compared to ECG 10/04/2019 20:47:45 Sinus rhythm no longer present Myocardial infarct finding no longer present Electronically Signed On 11-10-2019 15:35:53 CDT by Colby Fernandez M.D. [email or web address]
[2019-11-08] MEDS: calcium gluconate 0.1 gm/mL 10% SDV 10mL 1 GM IVP (17:10)
--- NOTE | 2019-11-08 17:30 | PM.HP ---
Providers/Chief Complaint Admitting Physician: Edil Bonner MD Primary Care Provider: Sulma Wetzel MD Chief Complaint: SOB History of Present Illness Akil Velasco is a 49 year old male with past medical history of poorly controlled insulin-dependent type 2 diabetes mellitus, hypertension, congestive heart failure, CKD stage III with baseline creatinine of 2-2.5, diabetic nephropathy, diabetic peripheral neuropathy, severe obstructive sleep apnea recently started on trilogy machine to which he is moderately compliant and present to the ER today planing of worsening shortness of breath for last 2 days. Patient states his shortness of breath has been getting worse for last 2 days and is aggravated on walking small distances on lying down flat. Shortness of breath associated with cough without any expectoration. He denies of having any chest pain, chest pressure, palpitations, dizziness, syncope or presyncope. He states his lower limb swelling and scrotal swelling goes up and down and at present is getting worse for last 2 days. He is complaining of mild runny nose but denies any flulike symptoms, fevers, sick contacts, recent travels, any visitation from outside. Since his last discharge he has seen Dr. Ivey in his office and metolazone was added to his home medication to be taken every other day along with oral potassium to which he is very compliant as per the patient. He has also followed up with Dr. Oliva for severe scrotal swelling and was advised to be compliant with his diuretics. When he presented to the ER his saturation on room air was in 60s and improved to low 80s with 5 L nasal cannula as per the ER physician was mildly confused, his ABG done next acidosis with mild hypercapnia hypoxia so was placed on BiPAP. On my evaluation patient is on BiPAP a lot more awake complaining of mild lower abdominal pain which he feels is because of urinary retention due to scrotal swelling. Review of Systems Const: Denies: fever, chills, body aches, change in appetite, malaise, night sweats, diaphoresis, change in sleep pattern, daytime sleepiness or snoring Eyes: Denies: change in vision, blurry vision, photophobia, eye discomfort or eye discharge ENMT: Denies: throat pain, enlarged tonsils, hoarseness, mouth pain, oral sores/lesions, dry mouth, tinnitus, nasal congestion or post nasal drip Card: Denies: chest pain, palpitations, irregular heart rhythm, edema, swelling of feet/ankles, lightheadedness, syncope, pre-syncope, shortness of breath on exertion, shortness of breath when lying down, leg pain with exertion or bluish discoloration of hands/feet Resp: Denies: shortness of breath, productive cough, non-productive cough, wheezing, stridor, pain on inspiration, change in phlegm color, coughing up blood or chest congestion GI: Denies: abdominal pain, nausea, vomiting, vomiting blood, coffee grounds in vomit, difficulty swallowing, heartburn/indigestion, diarrhea, constipation, bloating, cramping, change in bowel habits, painful bowel movements, blood in stool or black tarry stool : Denies: flank pain, difficulty urinating, painful urination, urinary frequency, urinary urgency, urinary hesitancy, urinary dribbling, difficulty starting urination, change in urine stream, nighttime urination or blood in urine Musc: Denies: neck pain, back pain, extremity pain, joint pain, joint swelling, redness, joint stiffness or limited range of motion Neuro: Denies: headache, numbness in extremities, weakness in extremities, changes in sensation, lack of coordination, difficulty walking, frequent falls, dizziness, vertigo, confusion, slurred speech, difficulty communicating thoughts or seizure-like activity Psych: Denies: anxiety, depression, mood swings, panic attacks, hopelessness or irritability Endo: Denies: excessive urination, excessive thirst, tired all the time, cold intolerance, excessive sweating, flushing or heat intolerance Ramy/Lymph: Denies: easy bruising or easy bleeding All/Imm: Denies: tongue swelling, facial swelling or acute wheezing Medications/Allergies Home Medications Medication Instructions Recorded Confirmed Last Taken Type carvedilol 25 mg PO DAILY 11/08/19 11/08/19 11/08/19 History Allergies Allergy/AdvReac Type Severity Reaction Status Date / Time No Known Allergies Allergy Verified 09/16/19 09:25 PFSH Acute PFSH: Medical History (Updated 11/08/19 @ 21:32 by Colton Waller MD, [facility] [place]) Accelerated hypertension Acute on chronic diastolic (congestive) heart failure Ockvi-[id number]-zywdftj kidney injury Anasarca Cancer Cataract (lens) fragments in eye following cataract surgery, bilateral CKD stage 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 Congestive cardiac failure Diabetes Fracture of fifth metatarsal bone of left foot Fracture of fourth metatarsal bone of left foot Hypertension Laceration Metabolic alkalosis Neuropathy PVD (peripheral vascular disease) Type 2 diabetes mellitus with diabetic polyneuropathy Surgical History (Updated 11/08/19 @ 17:32 by Edil Bonner MD) H/O partial nephrectomy bilateral Hx of lymph node excision Social History (Updated 10/28/19 @ 12:53 by KATIE Arzate) Smoking and tobacco status: never smoked Alcohol intake: current Alcohol intake frequency: holidays/special occasions only Adopted: No Caregiver/support person: No Lives independently: No Household members: spouse Housing: House Marital status: Current occupational status: unemployed History of recent travel: No Current gender identity: Male Vitals/I&O/Wt Last Vital Signs Temp 96.8 F L 11/08/19 14:39 Pulse 60 11/08/19 15:41 Resp 17 11/08/19 16:59 BP 105/77 11/08/19 14:39 Pulse Ox 95 11/08/19 16:59 Weight last 48 hrs Weight 158.757 kg Physical Exam Narrative: EXAM NARRATIVE: General: No acute distress, AO x3 HEENT: PERRLA, pupils bilaterally equal and reactive Chest: Normal vesicular breath sounds, no added sounds, equal good air entry bilaterally CVS: S1-S2 regular, no murmurs, no tachycardia, no gallops, no rubs Abdomen: Soft, nontender, no organomegaly, bowel sounds present Neuro: No focal deficits, no facial deformity, AO x3, power 5/5 in all limbs Data : 11/09/19 04:41 11/09/19 04:41 A&P Assessment and plan (1) Respiratory failure with hypoxia and hypercapnia: Status: Acute (2) Acute on chronic diastolic (congestive) heart failure: Status: Acute (3) Obstructive sleep apnea: Status: Acute (4) Anasarca: Status: Acute (5) Restrictive lung disease: Status: Acute (6) Acute kidney injury superimposed on chronic kidney disease: Status: Acute (7) CKD stage 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: Status: Acute (8) Acidosis, metabolic, with respiratory acidosis: Status: Acute (9) Hyperkalemia: Status: Acute (10) Hypertension: Status: Acute (11) Diabetes: Status: Acute (12) Scrotal swelling: Status: Acute Additional A&P Information Shortness of breath with mixed respiratory failure with both hypoxia and hypercapnia: Combination of acute decompensated diastolic congestive heart failure along with severe obstructive sleep apnea. Chances of pneumonia are less as patient has no leukocytosis, fever. Given the patchy opacities on the chest x-ray will check for COVID 19. Check CT chest without contrast. Given the extensive lower limb edema and shortness of breath cannot rule out PE as the d-dimer is elevated as well but given the KAYLEEN will avoid contrast study for now. Though chances of PE are less as patient does not have hypercapnia on the ABG. We will check lower limb Dopplers for DVT. If patient has lower limb DVT we will start him on full dose anticoagulation at that time. We will hold off on antibiotics for now. Check procalcitonin. If patient becomes febrile we will start him on vancomycin and Zosyn as patient was recently in hospital last month. Check lactic acid with reflex. proBNP elevated more than 3000. Last echocardiogram in September 2019 showed an EF of 55% with diastolic dysfunction of grade 1. Though Lexiscan done earlier this year showed an EF of 25% with dilated LV. For diastolic heart failure we will change patient's home dose of Bumex to IV Lasix 80 mg twice daily for now. Patient got 80 mg of Lasix already in the ER for today. Change metolazone from 5 mg every 48 hours to 5 mg daily for now with first dose stat. Strict intake and output charting. Daily weight. Head end elevation at 40 degrees. Melgar catheterization for strict input output charting. BiPAP ventilation for now. Check ABG again in 2 hours and will decide about BiPAP continuation as per the ABG results. BiPAP nightly for severe obstructive sleep apnea. Oxygen supplementation keeping saturation over 92%. Elevated troponin: Baseline troponin 196. On last discharge troponin was 127. Troponin can be higher as creatinine is higher as well. Will trend troponin at 2 hours and 6 hours and go accordingly. For now patient is chest pain-free. Anasarca: Treatment as above for congestive heart failure. KAYLEEN on chronic kidney disease: Cardiorenal syndrome on top of diabetic nephropathy. Baseline creatinine around 2-2.5. Currently creatinine 3.5. Medication reconciliation done for nephrotoxic drugs. Check BMP daily. Hyperkalemia: Patient is on potassium daily at home. We will hold off on potassium supplementation. Patient given calcium gluconate and insulin 10 units and D50 in the ER. We will repeat dose of calcium gluconate again and check BMP at around 6 PM. Telemetry. Mixed respiratory and metabolic acidosis: Treatment as above. Repeat ABG in 2 hours. Hypertension: At home patient is on amlodipine 10 mg, hydralazine 50 3 times daily, clonidine 0.1 twice daily. In the ER blood pressure was on low normal side so we will hold off on any antihypertensive for now. Will reintroduce medications as blood pressure trends higher than 150 systolic. Type 2 diabetes mellitus: Continue home dose of Lantus 30 units every morning. Start patient on insulin sliding scale at high-dose protocol. Check HbA1c as last HbA1c was more than 3 months ago. Heparin 5000 every 12 for DVT prophylaxis. Famotidine for PUD prophylaxis Full code. Attestations Medical Necessity Statement*: Admission for more than 2 midnights for acute hypoxic and hypercapnic respiratory failure, metabolic and respiratory acidosis, acute on decompensated congestive diastolic heart failure. Time Spent in Patient Care: Greater than 35 minutes (>than 50% of time spent in counselling and/or direct pt care on unit). Coding Level of Care Code Acute Brick Paver for Chg Fwd Diagnoses Respiratory failure with hypoxia and hypercapnia J96.91; J96.92 Acute on chronic diastolic (congestive) heart failure I50.33 Obstructive sleep apnea G47.33 Anasarca R60.1 Restrictive lung disease J98.4 Acute kidney injury superimposed on chronic kidney disease N17.9; N18.9 CKD stage 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 E11.22; N18.3 Acidosis, metabolic, with respiratory acidosis E87.4 Hyperkalemia E87.5 Hypertension I10 Diabetes E11.9 Scrotal swelling N50.89
[2019-11-08 18:17] LABS: Anion Gap 17.7 (5-19); Calcium 9.2 mg/dL (8.5-10.5); Carbon Dioxide 25 mmol/L (22-29); Chloride 100 mmol/L (98-107); Glomerular Filtration Rate 18.1 mL/min (90-130); Glucose 322 mg/dL (65-115); Osmolality Calculated 295 mOsm/kg (285-295); Sodium 136 mmol/L (136-145)
[2019-11-08 18:32] LABS: Reflex Lactate Order REFLEX LACTIC ORDERD
[2019-11-08 18:52] LABS: Troponin 5 2HR 189.7 ng/mL (0-15); Troponin 5 2HR Delta -6.3 ABS# (0-10)
[2019-11-08 18:52] LABS: Blood Urea Nitrogen 100 mg/dL (6-20); Potassium 6.7 mmol/L (3.5-5.1)
[2019-11-08 19:23] LABS: Amphetamines Screen Urine Negative (Negative); Barbiturates Screen Urine Negative (Negative); Benzodiazepines Screen Urine Negative (Negative); Cocaine Screen Urine Negative (Negative); Opiate Screen Urine Negative (Negative); PCP Screen Urine Negative (Negative); THC Screen Urine Negative (Negative)
[2019-11-08 19:41] LABS: Lactic Acid level (Lactate) 0.8 mmol/L (0.5-2.2)
--- NOTE | 2019-11-08 21:02 | ECG_ITS ---
Measurements Intervals [place] Rate: 62 P: OK: 0 QRS: 93 QRSD: 102 T: 60 QT: 395 QTc: 404 Indeterminate RHYTHM secondary to baseline artifact, probable sinus rhythm BORDERLINE RIGHT AXIS DEVIATION [QRS AXIS > 90] LOW QRS VOLTAGE [QRS DEFLECTION < 0.5/1.0 mV IN LIMB/CHEST LEADS] PATTERN CONSISTENT WITH PULMONARY DISEASE MODERATE ST DEPRESSION [0.05+ mV ST DEPRESSION] INTERPRETATION BASED ON A DEFAULT AGE OF 40 YEARS Compared to ECG 10/04/2019 20:47:45 Myocardial infarct finding no longer present Electronically Signed On 11-09-2019 8:22:18 CDT by Colby Fernandez M.D. [id number]
[2019-11-08 21:49] LABS: Troponin 5 6HR 167.3 ng/mL (0-15); Troponin 5 6HR Delta -28.7 ng/L (0-12)
[2019-11-08 21:53] LABS: Glucose Point of Care 222 mg/dL (70-110)
[2019-11-08] MEDS: famotidine 20 mg/2 mL INJ IVP (22:24)
[2019-11-08] MEDS: heparin 5,000 unit/mL INJ 1 mL 5000 UNIT SUBCUT (22:24)
[2019-11-08] MEDS: carvedilol 25 mg Tablet PO (22:25)
[2019-11-09] VITALS (11 sets, daily range): BP systolic 123–162; BP diastolic 69–89; PULSE 62–79; RESP 9–21; TEMP 36.4–37.2; O2SAT 91–98; BMI 46.1
--- NOTE | 2019-11-09 00:47 | PC.NURSE ---
Patient continues to take his bipap off, nursing and respiratory have gone in many times in the past couple hours to put the mask back on him and education over and over why its important to leave it on and patient finaly said i cant i just cant wear it anymore. Called respiratory and she also went in to try to get him to keep it on but he refused and so she put him on nc at 4 liters. sats are remaining mid 90s but his ph and co2 wont get the help needed, and this was explained to him.
--- NOTE | 2019-11-09 00:47 | PC.RESP ---
pt refusing to wear BIPAP, educated pt on importance and reasons for bipap, pt states he feels he is suffocating and does not want to wear Bipap. Pt states he feels the same way when he wears his Trilogy at home.
[2019-11-09 03:26] LABS: Add Urine Culture? Yes; Add Urine Microscopic? YES; Bacteria Urine 1+; Bilirubin Urine Neg (NEGATIVE); Blood Urine 3+ (Negative); Glucose Urine UA Norm (Normal); Ketones Urine Negative (Negative); Leukocyte Esterase Urine Trace (Negative); Nitrate Urine Negative (Negative); Protein Urine 3+ (Negative); RBC Urine 50-80 /hpf (0-2); Specific Gravity, Urine 1.015 (1.005-1.030); Squamous Epithelial Cell Urine 0-4 (0-5); Urine Appearance Cloudy (CLEAR); Urine Color Yellow (Yellow); Urobilinogen Urine Norm (Negative); WBC Urine 0-4 /hpf (0-5); pH Urine 5 (5-7)
[2019-11-09 05:02] LABS: Basophils % 0.5 %; Eosinophils # 0.3 10^3/uL (0.0-0.8); Hematocrit 33.2 % (42.0-52.0); Hemoglobin 9.7 g/dL (11.7-16.6); Lymphocytes # 0.9 10^3/uL (0.8-4.8); Lymphocytes % 15.3 %; Mean Corpuscular HGB Conc 29.2 g/dL (30.0-36.0); Mean Corpuscular Volume 92.5 fL (80-94); Monocytes # 0.7 10^3/uL (0.2-0.9); Monocytes % 12.2 %; Neutrophils # 4.1 10^3/uL (1.8-7.7); Neutrophils % 66.8 %; Nucleated Red Blood Cells % 0 %; Platelet Count 202 10^3/cmm (130-400); Red Blood Count 3.59 10^6/uL (4.1-5.3); Red Cell Distribution Width 15.2 % (12.1-15.1); White Blood Count 6.1 10^3/uL (4.0-10.0)
[2019-11-09] MEDS: FUROsemide 10 mg/mL SDV 10mL 80 MG IVP ×2 (05:02→16:21)
[2019-11-09] MEDS: insulin glargine 100 units/1 mL 30 UNIT SUBCUT (05:03)
[2019-11-09 05:16] LABS: Alanine Aminotransferase 23 U/L (0-41); Alkaline Phosphatase 94 IU/L (40-130); Anion Gap 13.9 (5-19); Aspartate Amino Transferase 20 U/L (0-40); Calcium 9.5 mg/dL (8.5-10.5); Carbon Dioxide 28 mmol/L (22-29); Chloride 101 mmol/L (98-107); Estmated Average Glucose 186; Globulin 4.2 g/dL (1.3-4.6); Glucose 149 mg/dL (65-115); Hemoglobin A1C 8.1 % (4.0-6.0); Magnesium 2.5 mg/dL (1.7-2.3); Osmolality Calculated 288 mOsm/kg (285-295); Potassium 5.9 mmol/L (3.5-5.1); Sodium 137 mmol/L (136-145); Total Bilirubin 0.3 mg/dL (0.15-1.2); Total Protein 7.2 g/dL (6.6-8.7)
[2019-11-09 05:24] LABS: Glucose Point of Care 157 mg/dL (70-110)
[2019-11-09 05:39] LABS: Blood Urea Nitrogen 97 mg/dL (6-20)
--- NOTE | 2019-11-09 06:33 | PC.NURSE ---
patients potassium was 6.7 on arrival to hospital, after calcium gluconate, 500 ml of d5 with 20 units of insulin hes down to 5.9. creatinine is 3.3, bun is 97. Patient alert and oriented when hie came to the floor from the ER, with bipap. No fever or cough. Lung sounds diminished. patient is not as compliant as need to be with bipap, wore it for about 4 hours then kept taking it off saying i just cant wear it anymore but would put if back on in 20 or 30 minutes for about the same 20 to 30 minutes of time and take it off. he wears nc 4 l when off of it. it keeps sats up but doesnt take co2 off or help with ph balance. he was at 7.24 when arrived. patient also not very steady on his feet, got him a walker but more often than not when he got up he didnt use it nor did he wait til had walker to get up and move without sba or 1 person assist. Patients balance makes him a moderate fall risk.
[2019-11-09 07:21] LABS: Glucose Point of Care 134 mg/dL (70-110)
[2019-11-09 08:34] LABS: ABG PCO2 59.2 mmHg (35-45); ABG PH Result 7.29 (7.35-7.45); Alveolar-Arterial Oxygen Gradi 83.8 mmHg (5-10); Arterial Blood Gas Hematocrit 34.9 % (42-52); Base Excess ABG 0.9 mmol/L (-2.0-2.0); Blood Gas Allen Test Pos; Blood Gas Operator Identificat amh; Blood Gas Sample Site Radial, left; Blood Gas Sample Type Arterial; Carboxyhemoglobin 0.6 %THgb (0.4-20.1); HCO3 ABG 28.5 mmol/L (22-26); Ionized Calcium Level - ABG 1.3 mmol/L (1.1-1.4); Methemoglobin 0.8 % (0.4-1.5); Oxygen Device NC; Oxygen Saturation ABG 96.3; PO2 ABG 95.4 mmHg (80.0-100.0); Potassium Level - ABG 5.8 mmol/L (3.5-5.0); Total Hemoglobin 11.4 g/dL (14-18)
[2019-11-09] MEDS: carvedilol 25 mg Tablet PO ×2 (08:47→18:04)
[2019-11-09] MEDS: tamsulosin 0.4 mg Capsule PO (08:47)
[2019-11-09] MEDS: citalopram 20 mg Tablet 40 MG PO (08:47)
[2019-11-09] MEDS: aspirin 81 mg EC Tablet PO (08:47)
[2019-11-09] MEDS: atorvastatin 40 mg Tablet PO (08:47)
[2019-11-09] MEDS: gabapentin 300 mg Capsule PO ×2 (08:47→18:04)
[2019-11-09] MEDS: metOLazone 5 MG Tablet PO (08:47)
[2019-11-09] MEDS: heparin 5,000 unit/mL INJ 1 mL 5000 UNIT SUBCUT ×2 (08:48→20:47)
[2019-11-09] MEDS: famotidine 20 mg/2 mL INJ IVP ×2 (08:48→20:47)
[2019-11-09 09:23] LABS: Chol HDL Ratio 2.68 mg/dL (1.0-5.00); Cholesterol 91 mg/dL (0-200); HDL Cholesterol 34 mg/dL (60-100); LDL Cholesterol Calculated 37 mg/dL (50-129); Triglycerides 99 mg/dL (0-150); VLDL Cholestrol Calculation 20 mg/dL (0-30)
[2019-11-09 09:24] LABS: Complement C3 132 mg/dL (90-180); Hepatitis A Antibody IgM. Non-Reactive (Nonreactive); Hepatitis B Core IgM Non-Reactive (Nonreactive); Hepatitis B Surface Antigen. Non-Reactive (Nonreactive); Hepatitis C Virus Antibody Non-Reactive (Nonreactive)
--- NOTE | 2019-11-09 10:32 | P.PN_ITS ---
Subjective Subjective: Interval history: No acute events overnight. Patient was initially compliant with BiPAP machine till midnight but since then has used only used it for around 2 hours. This morning on evaluation he is lying comfortably in bed saturating more than 92% on 2.5 L of nasal cannula oxygen supplementation. He is complaining of being very restless because of back pain. States he is feeling little better. He is concerned about scrotal swelling. As per the RN patient has small blister on right great toe and will go. On examination blisters on not foul-smelling or has any discharge Vitals/I&O/Wt Last Vital Signs Temp 98.4 F 11/09/19 09:18 Pulse 64 11/09/19 09:18 Resp 13 11/09/19 09:18 BP 130/70 11/09/19 09:18 Pulse Ox 93 11/09/19 09:18 11/08/19 11/09/19 11/09/19 22:59 06:59 14:59 Intake Total 250 / 250 490.1 / 740.1 240 / 240 Output Total 1000 / 1000 1100 / 2100 700 / 700 Balance -750 / -750 -609.9 / -1359.9 -460 / -460 Weight last 48 hrs Weight 158.757 kg Weight 158.757 kg Physical Exam Narrative: EXAM NARRATIVE: General: No acute distress, AO x3 HEENT: PERRLA, pupils bilaterally equal and reactive Chest: Normal vesicular breath sounds, no added sounds, equal good air entry bilaterally CVS: S1-S2 regular, no murmurs, no tachycardia, no gallops, no rubs Abdomen: Soft, nontender, no organomegaly, bowel sounds present Neuro: No focal deficits, no facial deformity, AO x3, power 5/5 in all limbs Urinary Catheter Management^: Melgar: Cath Placed During This Visit: yes Reason for Continuing Indwelling Catheter: Acute Urinary Retention or Obstruction Urinary Catheter Date of Insertion: 11/08/19 Urinary Catheter Time of Insertion: 18:00 Data : 11/09/19 04:41 11/09/19 04:41 A&P Assessment and plan (1) Respiratory failure with hypoxia and hypercapnia: Status: Acute (2) Acute on chronic diastolic (congestive) heart failure: Status: Acute (3) Obstructive sleep apnea: Status: Acute (4) Anasarca: Status: Acute (5) Restrictive lung disease: Status: Acute (6) Acute kidney injury superimposed on chronic kidney disease: Status: Acute (7) Nephrotic range proteinuria: Status: Acute (8) CKD stage 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: Status: Acute (9) Acidosis, metabolic, with respiratory acidosis: Status: Acute (10) Hyperkalemia: Status: Acute (11) Hypertension: Status: Acute (12) Diabetes: Status: Acute (13) Scrotal swelling: Status: Acute Additional A&P Information Mr. Velasco has had 3 admissions in the last 3 months because of increasing shortness of breath, anasarca. I believe his symptoms are stemming from severe obstructive obstructive sleep apnea for which he recently received trilogy machine but is not properly compliant. Along with sleep apnea he also has severe nephrotic syndrome which is most likely because of uncontrolled diabetes in the past. Have counseled him in detail regarding need of contusions of good sugar control, compliance with trilogy machine, low-salt diet, better blood pressure control. Patient understands the need of all. Shortness of breath with mixed respiratory failure with both hypoxia and hypercapnia: Combination of acute decompensated diastolic congestive heart failure along with severe obstructive sleep apnea. Chances of pneumonia are less as patient has no leukocytosis, fever. Covid 19 testing pending. Continue with isolation. PE unlikely as lower limb Dopplers are negative, patient has improved with diuresis and oxygenation and currently is doing well on 2 L nasal cannula. CTA could not be done because of acute kidney injury. Patient remains afebrile. Procalcitonin normal, no leukocytosis. We will hold off on antibiotics for now. If patient becomes febrile we will start him on vancomycin and Zosyn as patient was recently in hospital last month. proBNP elevated more than 3000. Last echocardiogram in September 2019 showed an EF of 55% with diastolic dysfunction of grade 1. Though Lexiscan done earlier this year showed an EF of 25% with dilated LV. Continue with Lasix 80 mg IV daily. Patient urine study suggestive of nephrotic syndrome. On review of literature from up to date diuresis combination of loop diuretics and thiazide help in decreasing the edema so we will discontinue metolazone and start patient on hydrochlorothiazide 25 mg daily. Strict intake and output charting. Daily weight. Head end elevation at 40 degrees. Melgar catheterization for strict input output charting. BiPAP nightly for severe obstructive sleep apnea. Oxygen supplementation keeping saturation over 92%. Elevated troponin: Baseline troponin 196. Delta negative. For now patient is chest pain-free. Anasarca: Treatment as above for congestive heart failure. Most likely due to nephrotic syndrome. Nephrotic syndrome: Most likely because of diabetic nephropathy. Cannot rule out other causes for now. Check JENNIFER, complement levels, acute hepatitis panel, urine creatinine spot, urine protein levels spot, urine electrophoresis. KAYLEEN on chronic kidney disease: Cardiorenal syndrome on top of diabetic neph ropathy. Baseline creatinine around 2-2.5. Currently creatinine trending down. Medication reconciliation done for nephrotoxic drugs. Check BMP daily. Hyperkalemia: Resolving. Potassium 5.9 today. Telemetry. Mixed respiratory and metabolic acidosis: Resolved. Hypertension: At home patient is on amlodipine 10 mg, hydralazine 50 3 times daily, clonidine 0.1 twice daily. Blood pressure continues to be on the softer side. We will continue to hold off on antihypertensives except Coreg because need higher blood pressure for better diuresis. Will reintroduce medications as blood pressure trends higher than 150 systolic. Type 2 diabetes mellitus: Continue home dose of Lantus 30 units every morning. Start patient on insulin sliding scale at high-dose protocol. Blood sugar well controlled. HbA1c down to 8.1 from 14.5 which was 3 months ago. Heparin 5000 every 12 for DVT prophylaxis. Famotidine for PUD prophylaxis Full code. Attestations Medical Necessity Statement*: Acute decompensated heart failure, nephrotic syndrome, anasarca Coding Level of Care Code Acute Traffic Maintenance Officer for [facility] Diagnoses Respiratory failure with hypoxia and hypercapnia J96.91; J96.92 Acute on chronic diastolic (congestive) heart failure I50.33 Obstructive sleep apnea G47.33 Anasarca R60.1 Restrictive lung disease J98.4 Acute kidney injury superimposed on chronic kidney disease N17.9; N18.9 Nephrotic range proteinuria R80.9 CKD stage 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 E11.22; N18.3 Acidosis, metabolic, with respiratory acidosis E87.4 Hyperkalemia E87.5 Hypertension I10 Diabetes E11.9 Scrotal swelling N50.89
[2019-11-09 10:54] LABS: Urine Creatinine 46 mg/dL (39-259)
[2019-11-09 11:15] LABS: Urine Protein Random 211 mg/dL
--- NOTE | 2019-11-09 11:33 | PC.NURSE ---
Patient very restless continues to get out of bed without assist and will not wait for nurse to respond if call light is pressed. Patient reports he would like to walk in the hassan patient re-educated on the precautions in which is is on and for what reason he cannot walk in the hassan way patient verbalized understanding however reports that his back side hurts from sitting in the bed he can not sit in the chair because it uncomfortable as well will notify with patient concerns of pain and nurse concerns for safety.
[2019-11-09 11:34] LABS: Glucose Point of Care 159 mg/dL (70-110)
[2019-11-09] MEDS: HYDROcodone-acetaminophen 5-325 mg Tablet 1 TAB PO ×3 (11:54→23:09)
--- NOTE | 2019-11-09 14:14 | PC.NURSE ---
patient has been up and down in the room with walker. patient reports he is just very restless and can't sit still. educated patient on the importance of being safe and calling for assistance patient has verbalized understanding every time he is spoken too however he continues to not call for help. Dr. Bonner is aware of situation. Will continue to monitor.
--- NOTE | 2019-11-09 16:40 | USR_ITS ---
PROCEDURE INFORMATION: Exam: US Duplex Lower Extremity Veins Exam date and time: 11/09/2019 12:10 AM Age: 49 years old Clinical indication: Other: Shortness of breath; Additional info: R/O dvt TECHNIQUE: Imaging protocol: Real-time duplex ultrasound of the Lower Extremities with 2-D pastrana scale, color Doppler flow and spectral waveform analysis with image documentation. Complete exam focused on the bilateral lower extremity veins. COMPARISON: [id number] 10/05/2019 7:07 AM FINDINGS: Right deep veins: Unremarkable. The common femoral, femoral, proximal profunda femoral and popliteal veins are patent without thrombus. Normal Doppler waveforms. Normal compressibility and/or augmentation response. Right superficial veins: Saphenofemoral junction is patent without thrombus. Left deep veins: Unremarkable. The common femoral, femoral, proximal profunda femoral and popliteal veins are patent without thrombus. Normal Doppler waveforms. Normal compressibility and/or augmentation response. Left superficial veins: Saphenofemoral junction is patent without thrombus. Soft tissues: Calf soft tissue edema. US/[id number] IMPRESSION: No acute findings. No evidence of deep vein thrombosis.
[2019-11-09 17:15] LABS: Glucose Point of Care 125 mg/dL (70-110)
[2019-11-09 19:59] LABS: Anion Gap 14.6 (5-19); Calcium 9.6 mg/dL (8.5-10.5); Carbon Dioxide 29 mmol/L (22-29); Chloride 101 mmol/L (98-107); Glomerular Filtration Rate 21.5 mL/min (90-130); Glucose 156 mg/dL (65-115); Osmolality Calculated 292 mOsm/kg (285-295); Potassium 5.6 mmol/L (3.5-5.1); Sodium 139 mmol/L (136-145)
[2019-11-09 20:03] LABS: Glucose Point of Care 176 mg/dL (70-110)
[2019-11-09 20:11] LABS: Blood Urea Nitrogen 92 mg/dL (6-20)
--- NOTE | 2019-11-09 22:16 | PC.NURSE ---
Patient has been continually pulled heart monitor leads off. Patient has been educated on need for them. Leads have been placed back on three times so far this shift. Will place back on patient as frequently as possible, however patient is pulling them off frequently.
--- NOTE | 2019-11-09 23:26 | PC.NURSE ---
Bipap placed on patient by RT.
[2019-11-10] VITALS (10 sets, daily range): BP systolic 141–176; BP diastolic 89–108; PULSE 57–69; RESP 6–20; TEMP 36.4–37; O2SAT 92–99
--- NOTE | 2019-11-10 01:03 | PC.NURSE ---
Patient took his Bipap off and states I don't want to wear it right now. Family states that patient doesn't wear his Triology at home like his is supposed to. Patient has been educated on need for Bipap and verbalized understanding.
--- NOTE | 2019-11-10 03:26 | PC.NURSE ---
Patient was placed back on Bipap 30 minutes ago. Patient was off heart monitor again. Nurse went in to put patient back on heart monitor and patient had taken his Bipap off again. Patient was educated that he needs his heart monitor and Bipap. Heart monitor was placed back on patient. Patient stated I don't want my Bipap right now. After nurse walked out of the room, patient hit his call light stating I am ready for my Bipap now. Bipap was placed on patient. Will continue to monitor. Patient has taken himself off Bipap and heart monitor several times despite education.
[2019-11-10 03:41] LABS: Basophils # 0.1 10^3/uL (0.0-0.1); Basophils % 0.8 %; Eosinophils # 0.4 10^3/uL (0.0-0.8); Eosinophils % 6.1 %; Hematocrit 33.7 % (42.0-52.0); Hemoglobin 9.7 g/dL (11.7-16.6); Lymphocytes % 15.9 %; Mean Corpuscular HGB Conc 28.8 g/dL (30.0-36.0); Mean Corpuscular Hemoglobin 26.4 pg (28.0-34.0); Mean Corpuscular Volume 91.8 fL (80-94); Mean Platelet Volume 10.7 fL (7.4-10.4); Monocytes # 0.8 10^3/uL (0.2-0.9); Monocytes % 12.5 %; Neutrophils % 64.5 %; Nucleated Red Blood Cells % 0 %; Platelet Count 203 10^3/cmm (130-400); Red Blood Count 3.67 10^6/uL (4.1-5.3); Red Cell Distribution Width 15.2 % (12.1-15.1); White Blood Count 6.2 10^3/uL (4.0-10.0)
[2019-11-10 04:08] LABS: Alanine Aminotransferase 22 U/L (0-41); Albumin Level 3.2 g/dL (3.5-5.2); Alkaline Phosphatase 87 IU/L (40-130); Anion Gap 16.4 (5-19); Aspartate Amino Transferase 23 U/L (0-40); Blood Urea Nitrogen 81 mg/dL (6-20); Calcium 9.7 mg/dL (8.5-10.5); Carbon Dioxide 29 mmol/L (22-29); Chloride 102 mmol/L (98-107); Globulin 4.3 g/dL (1.3-4.6); Glucose 95 mg/dL (65-115); Magnesium 2.4 mg/dL (1.7-2.3); Osmolality Calculated 294 mOsm/kg (285-295); Potassium 5.4 mmol/L (3.5-5.1); Sodium 142 mmol/L (136-145); Total Bilirubin 0.3 mg/dL (0.15-1.2); Total Protein 7.5 g/dL (6.6-8.7)
--- NOTE | 2019-11-10 04:16 | PC.NURSE ---
Nurse heard Bipap beeping and went to check on patient. Patient had pulled his Bipap off again. Patient did not wear Bipap for very long before pulling it off again. Nasal cannula was placed back in patient's nose. Will continue to monitor.
--- NOTE | 2019-11-10 05:41 | PC.NURSE ---
Patient unplugged heart monitor again. Will reconnect monitor.
[2019-11-10] MEDS: FUROsemide 10 mg/mL SDV 10mL 80 MG IVP (05:57)
[2019-11-10] MEDS: HYDROcodone-acetaminophen 5-325 mg Tablet 1 TAB PO (05:58)
[2019-11-10 06:17] LABS: Glucose Point of Care 74 mg/dL (70-110)
[2019-11-10] MEDS: famotidine 20 mg/2 mL INJ IVP ×2 (08:46→20:00)
[2019-11-10] MEDS: heparin 5,000 unit/mL INJ 1 mL 5000 UNIT SUBCUT ×2 (08:46→20:00)
[2019-11-10] MEDS: hydroCHLOROthiazide 25 mg Tablet PO (08:47)
[2019-11-10] MEDS: gabapentin 300 mg Capsule PO ×2 (08:47→17:03)
[2019-11-10] MEDS: tamsulosin 0.4 mg Capsule PO (08:47)
[2019-11-10] MEDS: aspirin 81 mg EC Tablet PO (08:47)
[2019-11-10] MEDS: carvedilol 25 mg Tablet PO ×2 (08:47→17:03)
[2019-11-10] MEDS: citalopram 20 mg Tablet 40 MG PO (08:47)
[2019-11-10] MEDS: atorvastatin 40 mg Tablet PO (08:47)
[2019-11-10 09:46] LABS: ABG PCO2 61.5 mmHg (35-45); ABG PH Result 7.31 (7.35-7.45); Arterial Blood Gas Hematocrit 32.9 % (42-52); Base Excess ABG 3.1 mmol/L (-2.0-2.0); Blood Gas Allen Test Pos; Blood Gas Operator Identificat amh; Blood Gas Sample Site Radial, left; Blood Gas Sample Type Arterial; Carboxyhemoglobin 1.3 %THgb (0.4-20.1); HCO3 ABG 30.6 mmol/L (22-26); HGB O2 Sat 94.4 % (95-100); Ionized Calcium Level - ABG 1.3 mmol/L (1.1-1.4); Oxygen Saturation ABG 96.7; PO2 ABG 87.5 mmHg (80.0-100.0); Total Hemoglobin 10.7 g/dL (14-18)
[2019-11-10 09:47] LABS: Oxygen Device BIPAP
[2019-11-10] MEDS: hyDRALAzine 25 mg Tablet PO (11:25)
[2019-11-10 11:39] LABS: Glucose Point of Care 103 mg/dL (70-110)
--- NOTE | 2019-11-10 14:03 | PM.PN ---
Subjective Subjective: Interval history: No acute events overnight. Patient was compliant with the BiPAP for only 2 to 3 hours last night. On awakening this morning he was mildly confused for which ABG was done which showed hypercapnia and he was placed back on BiPAP. On my evaluation patient was on BiPAP AO x3 not confused. Discussed in detail with him need to be on BiPAP more regularly and with more compliance. He denies of having nausea, vomiting, headache, palpitations. Labs, input and output noted. COVID 19 negative. Vitals/I&O/Wt Last Vital Signs Temp 97.6 F 11/10/19 12:00 Pulse 58 L 11/10/19 12:00 Resp 13 11/10/19 12:00 BP 141/89 11/10/19 12:00 Pulse Ox 96 11/10/19 12:00 11/09/19 11/10/19 11/10/19 22:59 06:59 14:59 Intake Total 1020 / 1380 Output Total 900 / 2700 2400 / 5100 2200 / 2200 Balance 120 / -1320 -2400 / -3720 -2200 / -2200 Weight last 48 hrs Weight 160.98 kg Weight 158.757 kg Weight 158.757 kg Physical Exam Narrative: EXAM NARRATIVE: General: No acute distress, AO x3 HEENT: PERRLA, pupils bilaterally equal and reactive Chest: Normal vesicular breath sounds, bilateral lower zone decreased air entry with minimal fine crackles, equal good air entry bilaterally CVS: S1-S2 regular, no murmurs, no tachycardia, no gallops, no rubs Abdomen: Soft, nontender, no organomegaly, bowel sounds present Neuro: No focal deficits, no facial deformity, AO x3, power 5/5 in all limbs. Extremities: Bilateral swelling 2+, scrotal swelling present. Urinary Catheter Management^: Melgar: Cath Placed During This Visit: yes Reason for Continuing Indwelling Catheter: Accurate Measurement of Urinary Output in Critically Ill Patients Urinary Catheter Date of Insertion: 11/08/19 Urinary Catheter Time of Insertion: 18:00 Data : 11/10/19 03:18 11/10/19 03:18 A&P Assessment and plan (1) Respiratory failure with hypoxia and hypercapnia: Status: Acute (2) Acute on chronic diastolic (congestive) heart failure: Status: Acute (3) Obstructive sleep apnea: Status: Acute (4) Anasarca: Status: Acute (5) Restrictive lung disease: Status: Acute (6) Acute kidney injury superimposed on chronic kidney disease: Status: Acute (7) Nephrotic range proteinuria: Status: Acute (8) CKD stage 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: Status: Acute (9) Acidosis, metabolic, with respiratory acidosis: Status: Acute (10) Hyperkalemia: Status: Acute (11) Hypertension: Status: Acute (12) Diabetes: Status: Acute (13) Scrotal swelling: Status: Acute Additional A&P Information Mr. Velasco has had 3 admissions in the last 3 months because of increasing shortness of breath, anasarca. I believe his symptoms are stemming from severe obstructive obstructive sleep apnea for which he recently received trilogy machine but is not properly compliant. Along with sleep apnea he also has severe nephrotic syndrome which is most likely because of uncontrolled diabetes in the past. Have counseled him in detail regarding need of contusions of good sugar control, compliance with trilogy machine, low-salt diet, better blood pressure control. Patient understands the need of all. Shortness of breath with mixed respiratory failure with both hypoxia and hypercapnia: Combination of acute decompensated diastolic congestive heart failure along with severe obstructive sleep apnea. Chances of pneumonia are less as patient has no leukocytosis, fever. Covid 19 testing negative. Can remove isolation precautions. Can transfer patient to regular cardiac stepdown unit. PE unlikely as lower limb Dopplers are negative, patient has improved with diuresis and oxygenation and currently is doing well on 2 L nasal cannula. CTA could not be done because of acute kidney injury. Patient remains afebrile. Procalcitonin normal, no leukocytosis. We will hold off on antibiotics for now. If patient becomes febrile we will start him on vancomycin and Zosyn as patient was recently in hospital last month. proBNP elevated more than 3000. Last echocardiogram in September 2019 showed an EF of 55% with diastolic dysfunction of grade 1. Though Lexiscan done earlier this year showed an EF of 25% with dilated LV. Net 7.3 L negative. Change Lasix to home dose of Bumex 2 mg twice daily. Changed metolazone to hydrochlorothiazide 25 mg. Continue hydrochlorothiazide 25 mg daily for better thiazide effect on sodium channels to improve for edema. Strict intake and output charting. Daily weight. Head end elevation at 40 degrees. Melgar catheterization for strict input output charting. Can DC Melgar tomorrow. BiPAP nightly for severe obstructive sleep apnea. Oxygen supplementation keeping saturation over 92%. Elevated troponin: Baseline troponin 196. Delta negative. For now patient is chest pain-free. Nephrotic syndrome: Most likely because of diabetic nephropathy. Cannot rule out other causes for now. Check JENNIFER, complement levels, acute hepatitis panel, urine creatinine spot, urine protein levels spot, urine electrophoresis. KAYLEEN on chronic kidney disease: Cardiorenal syndrome on top of diabetic nephropathy.Baseline creatinine around 2-2.5. Currently creatinine trending down. Medication reconciliation done for nephrotoxic drugs. Check BMP daily. If creatinine trends down to baseline can plan to start him on low-dose KIM/RB. Anasarca: Treatment as above for congestive heart failure. Most likely due to nephrotic syndrome. Hyperkalemia: Resolving. Potassium 5.9 today. Telemetry. Mixed respiratory and metabolic acidosis: Resolved. Hypertension: At home patient is on amlodipine 10 mg, hydralazine 50 3 times daily, clonidine 0.1 twice daily. Blood pressure continues to be on the softer side. Patient already on Coreg. We will start him on home dose of hydralazine today. Continue holding clonidine for now. Type 2 diabetes mellitus: Continue home dose of Lantus 30 units every morning. Start patient on insulin sliding scale at high-dose protocol. Blood sugar well controlled. HbA1c down to 8.1 from 14.5 which was 3 months ago. Heparin 5000 every 12 for DVT prophylaxis. Famotidine for PUD prophylaxis Full code. Attestations Medical Necessity Statement*: Nephrotic syndrome, severe anasarca, severe SYED, hypercapnic respiratory failure Time Spent in Patient Care: Greater than 35 minutes Coding Level of Care Code Acute Manager Database Administration for [facility] Fwd Diagnoses Respiratory failure with hypoxia and hypercapnia J96.91; J96.92 Acute on chronic diastolic (congestive) heart failure I50.33 Obstructive sleep apnea G47.33 Anasarca R60.1 Restrictive lung disease J98.4 Acute kidney injury superimposed on chronic kidney disease N17.9; N18.9 Nephrotic range proteinuria R80.9 CKD stage 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 E11.22; N18.3 Acidosis, metabolic, with respiratory acidosis E87.4 Hyperkalemia E87.5 Hypertension I10 Diabetes E11.9 Scrotal swelling N50.89
[2019-11-10] MEDS: hyDRALAzine 50 mg Tablet PO ×2 (14:32→20:00)
[2019-11-10 16:08] LABS: Glucose Point of Care 140 mg/dL (70-110)
[2019-11-10] MEDS: bumetanide 1 mg Tablet 2 MG PO (17:03)
[2019-11-10 22:15] LABS: Glucose Point of Care 156 mg/dL (70-110)
[2019-11-11] VITALS (7 sets, daily range): BP systolic 118–181; BP diastolic 73–90; PULSE 69–71; RESP 6–24; TEMP 36.4–36.9; O2SAT 91–95
[2019-11-11] MEDS: HYDROcodone-acetaminophen 5-325 mg Tablet 1 TAB PO (00:20)
--- NOTE | 2019-11-11 00:28 | PC.NURSE ---
pt called up tell her that no one has been in the room to check him or turn his heat up. pt's then calls me repeating what the pt said. i informed the that i and multiple staff members have been in there to assist him throughout the night and turn the heat up. i told her that we just got him in the shower and that i was going in there to give him his pain meds and change his dressings on his toes. was understanding. i gave pt pain meds assisted back to bed and changed his dressings. called resp. to place pt on bipap
[2019-11-11 05:16] LABS: Basophils % 0.6 %; Eosinophils # 0.4 10^3/uL (0.0-0.8); Eosinophils % 6.1 %; Hemoglobin 10.2 g/dL (11.7-16.6); Lymphocytes # 0.8 10^3/uL (0.8-4.8); Mean Corpuscular HGB Conc 29.1 g/dL (30.0-36.0); Mean Corpuscular Hemoglobin 26.2 pg (28.0-34.0); Mean Platelet Volume 10.6 fL (7.4-10.4); Monocytes # 0.7 10^3/uL (0.2-0.9); Monocytes % 10.2 %; Neutrophils # 4.7 10^3/uL (1.8-7.7); Neutrophils % 70.9 %; Nucleated Red Blood Cells % 0 %; Platelet Count 214 10^3/cmm (130-400); Red Blood Count 3.89 10^6/uL (4.1-5.3); Red Cell Distribution Width 14.9 % (12.1-15.1); White Blood Count 6.6 10^3/uL (4.0-10.0)
[2019-11-11 05:37] LABS: Alanine Aminotransferase 23 U/L (0-41); Albumin Level 3.4 g/dL (3.5-5.2); Alkaline Phosphatase 86 IU/L (40-130); Anion Gap 18.9 (5-19); Aspartate Amino Transferase 25 U/L (0-40); Blood Urea Nitrogen 74 mg/dL (6-20); Carbon Dioxide 30 mmol/L (22-29); Chloride 99 mmol/L (98-107); Globulin 4.6 g/dL (1.3-4.6); Glomerular Filtration Rate 24.2 mL/min (90-130); Glucose 164 mg/dL (65-115); Magnesium 2.2 mg/dL (1.7-2.3); Osmolality Calculated 299 mOsm/kg (285-295); Potassium 4.9 mmol/L (3.5-5.1); Sodium 143 mmol/L (136-145); Total Bilirubin 0.4 mg/dL (0.15-1.2)
[2019-11-11 06:57] LABS: Glucose Point of Care 140 mg/dL (70-110)
[2019-11-11] MEDS: insulin glargine 100 units/1 mL 30 UNIT SUBCUT (07:39)
[2019-11-11] MEDS: bumetanide 1 mg Tablet 2 MG PO (07:39)
[2019-11-11] MEDS: tamsulosin 0.4 mg Capsule PO (07:39)
[2019-11-11] MEDS: gabapentin 300 mg Capsule PO (07:40)
[2019-11-11] MEDS: hyDRALAzine 50 mg Tablet PO (07:40)
[2019-11-11] MEDS: hydroCHLOROthiazide 25 mg Tablet PO (07:40)
[2019-11-11] MEDS: citalopram 20 mg Tablet 40 MG PO (07:40)
[2019-11-11] MEDS: atorvastatin 40 mg Tablet PO (07:40)
[2019-11-11] MEDS: carvedilol 25 mg Tablet PO (07:41)
[2019-11-11] MEDS: heparin 5,000 unit/mL INJ 1 mL 5000 UNIT SUBCUT (07:41)
[2019-11-11] MEDS: aspirin 81 mg EC Tablet PO (07:41)
[2019-11-11] MEDS: famotidine 20 mg/2 mL INJ IVP (07:41)
--- NOTE | 2019-11-11 07:47 | PC.NURSE ---
Patient requested morning meds with breakfast. video games storywriter gave 0900 meds as requested.
[2019-11-11 11:35] LABS: Glucose Point of Care 176 mg/dL (70-110)
--- NOTE | 2019-11-11 12:09 | PM.DCS ---
Discharge Providers Date of Admission: 11/08/19 16:42 Date of Discharge: November 11, 2019 Attending Provider at Admission: Edil Bonner MD Attending Provider at Discharge: Edil Bonner MD Primary Care Provider: Sulma Wetzel MD Diagnoses at Discharge Discharge Diagnosis (1) Respiratory failure with hypoxia and hypercapnia: Status: Acute (2) Acute on chronic diastolic (congestive) heart failure: Status: Acute (3) Obstructive sleep apnea: Status: Acute (4) Anasarca: Status: Acute (5) Restrictive lung disease: Status: Acute (6) Acute kidney injury superimposed on chronic kidney disease: Status: Acute (7) Nephrotic range proteinuria: Status: Acute (8) CKD stage 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: Status: Acute (9) Acidosis, metabolic, with respiratory acidosis: Status: Acute (10) Hyperkalemia: Status: Acute (11) Hypertension: Status: Acute (12) Diabetes: Status: Acute (13) Scrotal swelling: Status: Acute Reason for Visit Reason for Visit: Reason For Visit: SOB Hospital Course Discharge Summary: Akil Velasco is a 49 year old male with past medical history of poorly controlled insulin-dependent type 2 diabetes mellitus, hypertension, congestive heart failure, CKD stage III with baseline creatinine of 2-2.5, diabetic nephropathy, diabetic peripheral neuropathy, severe obstructive sleep apnea recently started on trilogy machine to which he is moderately compliant and present to the ER November 07 complaining of worsening shortness of breath for last 2 days. Patient states his shortness of breath has been getting worse for last 2 days and is aggravated on walking small distances on lying down flat. Shortness of breath associated with cough without any expectoration. He denies of having any chest pain, chest pressure, palpitations, dizziness, syncope or presyncope. He states his lower limb swelling and scrotal swelling goes up and down and at present is getting worse for last 2 days. He was treated with IV diuretics and was overall 10 L negative by the day of discharge. He gradually started feeling a lot better and his saturations improved to his baseline on room air. His lower limb swelling and scrotal swelling was also decreasing. This was patient's third admission in the last 3 months for similar complaints. Patient's last echocardiogram done in September showed an EF of 55% with grade 1 diastolic dysfunction which is not incoherence with his recurrent admissions because of anasarca and difficulty in breathing. For anasarca it is most likely because of nephrotic range of proteinuria. Nephrology was site curbed and investigations for nephrotic syndrome were sent. His complement levels, lipid panel levels were within normal limits but his spot urine protein to creatinine ratio was more than 4500 which is consistent with nephrotic syndrome. Unfortunately given his KAYLEEN and baseline high creatinine numbers it is very difficult to start him on KIM inhibitor. For anasarca along with loop diuretic he was started on daily chlorothiazide as that would help him with prevention of sodium resorption at multiple levels at the nephrons. For shortness of breath it is most likely because of severe restrictive lung disease because of severe obstructive sleep apnea. Patient recently received trilogy machine and it was discussed with him in detail regarding need of regular compliance with the medication every night when he goes to sleep. It was discussed with patient that given his symptoms it is very important for him to have proper lifestyle modification including low-salt, low potassium and compliance with medication and Trelegy. It was also told patient unfortunately if he is not able to take care of his lifestyle modification he might end up on dialysis. He verbalizes understanding and is willing to try with lifestyle modifications. For blood pressure control on admission as patient was having low borderline blood pressures his antihypertensives were adjusted. He is being sent home on carvedilol 25 mg twice daily, hydralazine 50 3 times daily, clonidine 0.1 twice daily, isosorbide while amlodipine has been withheld. His A1c was checked and it came out to be 8.5 as compared to 14.5 in July. He is being discharged hemodynamically stable condition to follow-up with cardiology at set appointment. Physical Exam Narrative: EXAM NARRATIVE: General: No acute distress, AO x3 HEENT: PERRLA, pupils bilaterally equal and reactive Chest: Normal vesicular breath sounds, bilateral lower zone decreased air entry with minimal fine crackles, equal good air entry bilaterally CVS: S1-S2 regular, no murmurs, no tachycardia, no gallops, no rubs Abdomen: Soft, nontender, no organomegaly, bowel sounds present Neuro: No focal deficits, no facial deformity, AO x3, power 5/5 in all limbs. Extremities: Bilateral swelling 2+, scrotal swelling present. Urinary Catheter Management^: Melgar: Cath Placed During This Visit: yes, but has since been removed by the nurse Reason for Continuing Indwelling Catheter: Decision to DC Catheter Urinary Catheter Date of Insertion: 11/08/19 Urinary Catheter Time of Insertion: 18:00 Date Urinary Catheter Removed: 11/11/19 Time Urinary Catheter Discontinued: 12:07 Discharge Data Data Completed and Pending: Completed Studies During Hospitalization Category Date Time Status CT chest wo con 7 1250 Urgent Cat Scan 11/08/19 16:23 Completed XR chest 1V jonas ble [id number] Stat Exams 11/08/19 15:02 [place] [id number] Routin e Ultrasound 11/09/19 16:40 Completed Pending at discharge Category Date Time Status Arterial Blood Ga s W/O Coox Routine Lab 11/08/19 18:47 Received [facility] JENNIFER Profile R outine Lab 11/09/19 04:41 Received Urine Protein Erinn ctrop Random Routi ne Lab 11/09/19 09:50 Received Labs from last 24 hours 11/11/19 11/11/19 11/11/19 11:20 06:48 05:04 WBC RBC Hgb Hct MCV MCH MCHC RDW Plt Count MPV Neut % (Auto) Lymph % (Auto) [place] % (Auto) Eos % (Auto) Baso % (Auto) Neut # (Auto) Lymph # (Auto) [place] # (Auto) Eos # (Auto) Baso # (Auto) Nucleated RBC % (a uto) Nucleated RBCs # Sodium 143 Potassium 4.9 Chloride 99 Carbon Dioxide 30 H Anion Gap 18.9 BUN 74 H Creatinine 2.8 H GFR Calculation 24.2 L Glucose 164 H POC Glucose 176 140 Calculated Osmolal ity 299 H Calcium 10.0 Magnesium 2.2 Total Bilirubin 0.4 AST 25 ALT 23 Alkaline Phosphata se 86 Total Protein 8.0 Albumin 3.4 L Globulin 4.6 Nasal/Oral COVID-1 9 PCR 11/11/19 11/10/19 11/10/19 05:04 20:20 16:05 WBC 6.6 RBC 3.89 L Hgb 10.2 L Hct 35.0 L MCV 90.0 MCH 26.2 L MCHC 29.1 L RDW 14.9 Plt Count 214 MPV 10.6 H Neut % (Auto) 70.9 Lymph % (Auto) 12.0 [place] % (Auto) 10.2 Eos % (Auto) 6.1 Baso % (Auto) 0.6 Neut # (Auto) 4.7 Lymph # (Auto) 0.8 [place] # (Auto) 0.7 Eos # (Auto) 0.4 Baso # (Auto) 0.0 Nucleated RBC % (a uto) 0 Nucleated RBCs # 0.0 Sodium Potassium Chloride Carbon Dioxide Anion Gap BUN Creatinine GFR Calculation Glucose POC Glucose 156 140 Calculated Osmolal ity Calcium Magnesium Total Bilirubin AST ALT Alkaline Phosphata se Total Protein Albumin Globulin Nasal/Oral COVID-1 9 PCR 11/08/19 17:06 WBC RBC Hgb Hct MCV MCH MCHC RDW Plt Count MPV Neut % (Auto) Lymph % (Auto) [place] % (Auto) Eos % (Auto) Baso % (Auto) Neut # (Auto) Lymph # (Auto) [place] # (Auto) Eos # (Auto) Baso # (Auto) Nucleated RBC % (a uto) Nucleated RBCs # Sodium Potassium Chloride Carbon Dioxide Anion Gap BUN Creatinine GFR Calculation Glucose POC Glucose Calculated Osmolal ity Calcium Magnesium Total Bilirubin AST ALT Alkaline Phosphata se Total Protein Albumin Globulin Nasal/Oral COVID-1 9 PCR See comment Vitals: Last Vital Signs Temp 98.5 F 11/11/19 11:19 Pulse 70 11/11/19 11:19 Resp 18 11/11/19 11:19 BP 174/90 11/11/19 11:19 Pulse Ox 92 11/11/19 11:19 Discharge Plan Discharge Patient Disposition: Home, Self-Care Condition: Stable Prescriptions: New hydrochlorothiazide 25 mg Tablet 25 mg PO DAILY Qty: 30 RF: 0 Continued atorvastatin 40 mg tablet 40 mg PO DAILY Qty: 30 RF: 6 hydralazine 50 mg tablet 50 mg PO TID Qty: 90 RF: 6 isosorbide mononitrate 30 mg tablet extended release 24 hr 30 mg PO DAILY Qty: 30 RF: 6 bumetanide 2 mg tablet 2 mg PO BID RF: 0 gabapentin 600 mg tablet See Rx Instructions .ROUTE .COMPLEX PRN (Reason: Pain) RF: 0 multivitamin Capsule 1 cap PO DAILY RF: 0 citalopram [Celexa] 40 mg tablet 40 mg PO DAILY 14 Days Qty: 14 RF: 0 Lantus U-100 Insulin 100 unit/mL Solution 30 unit SUBCUT QAM 30 Days Qty: 9 RF: 0 aspirin 81 mg Tablet,Delayed Release (Dr/Ec) 81 mg PO DAILY 30 Days Qty: 30 RF: 0 insulin aspart U-100 [Novolog U-100 Insulin aspart] 100 unit/mL Solution 0 unit SUBCUT TIDWM 30 Days Qty: 10 RF: 0 tamsulosin 0.4 mg Capsule 0.4 mg PO DAILY 30 Days Qty: 30 RF: 0 Changed clonidine HCl 0.1 mg tablet 0.1 mg PO BID Qty: 90 RF: 6 carvedilol 25 mg tablet 25 mg PO BIDPC Qty: 60 RF: 0 Discontinued amlodipine 10 mg tablet 10 mg PO DAILY Qty: 30 RF: 3 Klor-Con M20 20 mEq tablet,ER particles/crystals 20 meq PO DAILY Qty: 30 RF: 6 No Action (DME) CAM BOOT Qty: 1 RF: 0 Discharge Orders: Discharge Order (Routine); Ordered 11/11/19 Ordered By: Edil Bonner Referrals: Counseling Centers [Other] (Here is a list of Counseling Centers if you feel like this would be beneficial to you. [place], [place] ([phone]) [facility] [place] ([phone]) [place], [place] ([phone]) [place], [place] ([phone]) [facility], [place], [place] ([phone]) [place], [place] ([phone]) You may also call [facility] Case Management/Stave Cutting Supervisor department if you have any questions or concerns at [phone] ext. [phone].) Sulma Wetzel MD [Primary Care Provider] - 2 weeks Rosie Ivey MD [Physician] - 1 month Discharge Diet: Low Salt and Low Fat Discharge Activity: Resume usual activity Discharge Attestations Time Spent in Discharge Care*: greater than 30 min Specific Discharge Activities: Specific discharge activities: educating patient, educating and/or supporting family/caregiver, discussing with pcp/other providers, discussing with insurance case manager/social workers/dc planners, documenting/other paperwork and evaluating patient/reviewing data Status at Discharge: Cognitive status at discharge: cognitively intact, Behavioral status at discharge: cooperative, Functional status at discharge: independent ambulation Overall status at discharge: patient is back to baseline Quality Metrics Clinical Quality Measures During this hospital stay, did patient experience: None 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
[2019-11-11 13:31] LABS: Anti-Double Strand DNA AB 1 IU/mL; Jo-1 Antibody <1.0 NEG AI (<1.0 NEG); SM/RNP Antibodies <1.0 NEG AI (<1.0 NEG); SS-B/LA IGG <1.0 NEG AI (<1.0 NEG); Scleroderma Ab(Scl-70) Ab <1.0 NEG AI (<1.0 NEG); Ss-A/Ro Igg <1.0 NEG AI (<1.0 NEG)
[2019-11-11 16:16] LABS: Creatinine, Random Urine 41 mg/dL (20-320); Protein, Total, Random 243 mg/dL (5-25); Protein/Creatinine Ratio 5.927 (0.022-0.128); Protein/Creatinine Ratio 5927 mg/g creat (22-128)
[2019-11-12 15:35] LABS: Albumin,Urine Random 58 %; Alpha-1-Globulins Urine Random 2 %; Alpha-2-Globulins Urine Random 10 %; Beta-Globulin,Urine Random 13 %; Gamma Globulin,Urine Random 17 %
[2019-11-16 15:45] LABS: ABG PCO2 56.1 mmHg (35-45); Arterial Blood Gas Hematocrit 32.7 % (42-52); Base Excess ABG 0.2 mmol/L (-2.0-2.0); Blood Gas Allen Test Pos; Blood Gas Sample Site Radial, left; Blood Gas Sample Type Arterial; HCO3 ABG 27.4 mmol/L (22-26); Oxygen Device BIPAP
== END 2019-11-11 13:11 | disposition home or self-care (01) | DRG 291 ==
LOC: ER 14:49 → CSU 16:58 → MEDSURG 11-10 17:23
PROVIDERS: Admitting Provider Student in an Organized Health Care Education/Training Program; Emergency Provider Family Medicine; Family Provider Internal Medicine; PCP Internal Medicine; Visit Provider Student in an Organized Health Care Education/Training Program
DX: I13.0 Hypertensive heart and chronic kidney disease with heart failure and stage 1 through stage 4 chronic kidney disease, or unspecified chronic kidney disease (principal); I50.33 Acute on chronic diastolic (congestive) heart failure; J96.02 Acute respiratory failure with hypercapnia; J96.01 Acute respiratory failure with hypoxia; E87.2 Acidosis; N04.9 Nephrotic syndrome with unspecified morphologic changes; N17.9 Acute kidney failure, unspecified; G47.33 Obstructive sleep apnea (adult) (pediatric); N18.3 Chronic kidney disease, stage 3 (moderate); E11.22 Type 2 diabetes mellitus with diabetic chronic kidney disease; E87.5 Hyperkalemia; J98.4 Other disorders of lung; Z79.4 Long term (current) use of insulin; E11.21 Type 2 diabetes mellitus with diabetic nephropathy; E11.42 Type 2 diabetes mellitus with diabetic polyneuropathy; Z79.82 Long term (current) use of aspirin; N50.89 Other specified disorders of the male genital organs; E11.51 Type 2 diabetes mellitus with diabetic peripheral angiopathy without gangrene
CPT/HCPCS: 12345; 36415; 36416; 36600; 51702; 71045; 71250; 80048; 80051; 80053; 80061; 80074; 80306; 81001; 82570; 82803; 82805; 82810; 82962; 83036; 83605; 83735; 83880; 83986; 84145; 84156; 84484; 85025; 85378; 86160; 86225; 86235; 87086; 87635; 93005; 93970; 94660; 94664; 96372; 96375; 99282; A9270; J0610; J1644; J1815; J1940; J2270; J3490

== ENCOUNTER → 2019-12-15 15:08 | Outpatient (BNVA) | payer MEDICAID, SELFPAY | PROVIDERS: Family Provider Internal Medicine; PCP Internal Medicine; Visit Provider Internal Medicine Critical Care Medicine | DX: J96.11 Chronic respiratory failure with hypoxia (principal); J96.12 Chronic respiratory failure with hypercapnia; R60.1 Generalized edema; G47.33 Obstructive sleep apnea (adult) (pediatric); E66.2 Morbid (severe) obesity with alveolar hypoventilation; I50.33 Acute on chronic diastolic (congestive) heart failure | CPT/HCPCS: 80048; 83735; 83880 ==

== ENCOUNTER 2020-01-15 11:00 | Outpatient (CLI) | payer MEDICAID, SELFPAY | END 2020-01-15 11:01 | disposition home or self-care (01) | LOC: SLEEP 01-16 08:57 | PROVIDERS: Family Provider Internal Medicine; PCP Internal Medicine; Visit Provider Internal Medicine Critical Care Medicine | DX: J96.11 Chronic respiratory failure with hypoxia (principal); J96.12 Chronic respiratory failure with hypercapnia | CPT/HCPCS: 94762 ==

== ENCOUNTER 2020-04-14 11:46 | Inpatient (IN) | payer MEDICAID, SELFPAY ==
[2020-04-14] VITALS (13 sets, daily range): BP systolic 181–234; BP diastolic 101–127; PULSE 81–85; RESP 10–20; TEMP 36.3–36.8; O2SAT 67–96; BMI 45.5
--- NOTE | 2020-04-14 12:16 | ECG_ITS ---
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 Measurements Intervals [place] Rate: 82 P: 33 IA: 190 QRS: 97 QRSD: 105 T: 50 QT: 399 QTc: 468 Interpretive Statements SINUS RHYTHM BORDERLINE RIGHT AXIS DEVIATION [QRS AXIS > 90] LOW QRS VOLTAGE IN EXTREMITY LEADS [QRS DEFLECTION < 0.5 mV IN LIMB LEADS] Compared to ECG 11/08/2019 22:09:26 ST (T wave) deviation no longer present Electronically Signed On 04-14-2020 19:42:20 CDT by Shirin Kendrick M.D. [email or web address]
--- NOTE | 2020-04-14 12:16 | XR_ITS ---
WS: [id number] EXAM: AP CHEST: PORTABLE UPRIGHT DATE OF EXAM: 04/14/2020, 1228 hours COMPARISON: Chest x-ray from 11/08/2019 HISTORY: Patient is 50 years old with shortness of breath. FINDINGS: The cardiac silhouette is enlarged but similar. The mediastinal contours are similar. The pulmon varinder vascularity is congested with suspect some degree of slight interstitial edema. The lungs are cl ear of infiltrate. There is no effusion or pneumothorax. No acute bony abnormality is seen. XR/XR chest 1V portable [id number] IMPRESSION: Stable enlarged cardiac silhouette. Fairly severe pulmonary vascular congestion with suggestion for slight pulmonary edema all suggesting mild congestive hear t failure.
--- NOTE | 2020-04-14 12:21 | ED_ITS ---
HPI - SOB/Dyspnea General: Chief Complaint: Shortness of Breath/Dyspnea Stated Complaint: cp/rib pain/sob Time Seen by Provider: 04/14/20 12:09 History of Present Illness: HPI Narrative: This patient is a 50-year-old male who presents today with shortness of breath. He has a history of CHF and feels like he is retaining fluid. Over the past 3 to 4 weeks he has gained over 40 pounds in weight. He has doubled his Lasix dose and it is not helping. He also fell about a week ago and thinks he may have fractured a rib on the left side. All this has contributed to having severe shortness of breath. He came in today with room air sat in the 60s. He had oxygen at home after a hospitalization in July but he has not been using it. His said he is also supposed to be using BiPAP 4 hours a day and he is not using that either. He seems to be minim izing his symptoms. The patient's pulled me aside to get further history. She said he is completely noncompliant with any of his doctors recommendations. He supposed to use BiPAP but had it taken away because he did not use it. He is noncompliant with a diabetic diet. She said she believes this all started because he has been drinking soda by the liter. MD elicited complaint: shortness of breath, pain with inspiration and chest pain Pertinent past history: COPD, congestive heart failure, diabetes (With neuropathy and kidney dysfunction) and other (Hypoventilation syndrome) Onset (ago): week(s) (3) Timing: constant Severity: severe Exacerbating factors: lying flat, exertion, movement, coughing, inspiration and talking Relieving factors: nothing Known history of: COPD, congestive heart failure and diabetes Associated symptoms: Reports chest pain (Which he attributes to rib pain from a fall) and orthopnea; Deny abdominal pain, fever(s), nausea or vomiting Treatment prior to arrival: none Review of Systems General: Reports: 10 or more systems reviewed and unremarkable except in HPI and below Const: Denies: fever(s), chills, fatigue or malaise Eyes: Denies: change in vision ENMT: Denies: odynophagia Card: Reports: chest pain (Which he attributes to rib pain from a fall), dyspnea on exertion and orthopnea; Denies: swelling of feet/ankles Resp: Reports: dyspnea and non-productive cough GI: Denies: abdominal pain, nausea or vomiting : Denies: flank pain Musc: Reports: extremity swelling; Denies: neck pain or back pain Skin/Breast: Denies: rash Neuro: Reports: difficulty walking and frequent falls; Denies: headache(s), numbness in extremities or weakness in extremities Ramy/Lymph: Denies: easy bruising or easy bleeding PFSH ED PFSH: Medical History Accelerated hypertension Acute on chronic diastolic (congestive) heart failure Naanm-tq-xoskppk kidney injury Anasarca Cancer Cataract (lens) fragments in eye following cataract surgery, bilateral CKD stage 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 Congestive cardiac failure Diabetes Fracture of fifth metatarsal bone of left foot Fracture of fourth metatarsal bone of left foot Hypertension Laceration Metabolic alkalosis Neuropathy PVD (peripheral vascular disease) Type 2 diabetes mellitus with diabetic polyneuropathy Surgical History H/O partial nephrectomy bilateral Hx of lymph node excision Family History Father Diabetes Mother Diabetes Grandfather Diabetes Cancer Other Hyperlipidemia Social History Smoking and tobacco status: never smoked Alcohol intake: current Alcohol intake frequency: holidays/special occasions only Lives independently: Yes Household members: spouse Housing: House Marital status: Current occupational status: retired History of recent travel: No Current gender identity: Male Physical Exam Const: COMMON NORMALS: patient oriented x3, no limitations and alert GENERAL APPEARANCE: cooperative NUTRITIONAL APPEARANCE: obese morbidly obese ORIENTATION/CONSCIOUSNESS: Yes awake HENMT: HEAD & SCALP: normal to inspection FACE & SINUS: normal facial exam Eye: GENERAL EYE: appearance normal, both eyes and all related structures Neck/C-Spine: COMMON NORMALS: supple, no meningeal signs and no JVD Chest: COMMONS NORMALS: normal inspection of the chest Resp: EFFORT & INSPECTION: Yes tachypneic, Yes respiratory distress (Mild), Yes labored and Yes uses accessory muscles AUSCULTATION: diminished lung sounds (Severe, diffuse) Cardio: COMMON NORMALS: no JVD, regular rate, regular rhythm and No murmurs present (Cardio) RATE: regular rate RHYTHM: regular rhythm OTHER: Diffuse anasarca GI: COMMON NORMALS: Normal to inspection, nondistended, normoactive bowel sounds present, Soft to palpation and non-tender INSPECTION: Yes normal to inspection AUSCULTATION: Yes normoactive bowel sounds PALPATION: Yes Soft to palpation Back/Pelvis: COMMON NORMALS: thoracic and lumbar spine normal to inspection Extremity: COMMON NORMALS: normal to inspection; negative for no pedal edema Neuro: COMMON NORMALS: patient oriented x3, moves all extremities, no focal motor deficits and no sensory deficits noted SENSORIUM/ORIENTATION: Yes alert MENINGEAL SIGNS: Yes no meningeal signs Psych: COMMON NORMALS: mental status grossly normal, cooperative and normal affect Skin: COMMON NORMALS: no rashes or lesions noted and turgor normal GENERAL SKIN EXAM: no rashes or lesions noted and turgor normal Course ED course: This patient has anasarca, history of CHF, renal insufficiency. He is diabetic and questionably compliant. I put him on BiPAP in the ED hoping to help get some of the fluid off as well as decrease his work of breathing. He did well on this. He will be admitted to the hospitalist service for further management. Vital Signs: Vital signs: Vital Signs Temperature 98.6 F 04/15/20 07:03 Pulse Rate 86 04/15/20 07:03 Respiratory Rate 20 H 04/15/20 07:03 Blood Pressure 164/93 04/15/20 07:03 Pulse Oximetry 96 04/15/20 07:03 MDM - SOB/Dyspnea Lab Data: Labs: Lab Results 04/14/20 04/14/20 04/14/20 Range/Units 12:20 12:20 12:20 WBC 8.1 (4.0-10.0) 10^3/ uL RBC 4.50 (4.1-5.3) 10^6/u L Hgb 12.4 (11.7-16.6) g/dL Hct 40.5 L (42.0-52.0) % MCV 90.0 (80-94) fL MCH 27.6 L (28.0-34.0) pg MCHC 30.6 (30.0-36.0) g/dL RDW 14.4 (12.1-15.1) % Plt Count 198 (130-400) 10^3/c mm MPV 10.9 H (7.4-10.4) fL Neut % (Auto) 76.2 % Lymph % (Auto) 10.9 % [place] % (Auto) 8.7 % Eos % (Auto) 2.8 % Baso % (Auto) 0.5 % Neut # (Auto) 6.19 (1.8-7.7) 10^3/u L Lymph # (Auto) 0.9 (0.8-4.8) 10^3/u L [place] # (Auto) 0.7 (0.2-0.9) 10^3/u L Eos # (Auto) 0.2 (0.0-0.8) 10^3/u L Baso # (Auto) 0.0 (0.0-0.1) 10^3/u L Nucleated RBC % (a uto) 0 % Nucleated RBCs # 0.0 /100WBC PT 14.00 (12.1-14.9) SECO NDS INR 1.05 (0.8-1.2) Specimen Type Sample Site ABG pH (7.35-7.45) ABG pCO2 (35-45) mmHg ABG pO2 (80.0-100.0) mmH g ABG HCO3 (22-26) mmol/L ABG Base Excess (-2.0-2.0) mmol/ L Jesus Test Hematocrit (42-52) % O2 Delivery Device O2 Liters/Min % FiO2 % [employer] [place] ID Sodium 139 (136-145) mmol/L Potassium 4.7 (3.5-5.1) mmol/L Chloride 103 (98-107) mmol/L Carbon Dioxide 24 (22-29) mmol/L Anion Gap 16.7 (5-19) BUN 69 H (6-20) mg/dL Creatinine 3.5 H (0.7-1.2) mg/dL GFR Calculation 18.6 L (90-130) mL/min Glucose 207 H (65-115) mg/dL Calculated Osmolal ity 314 H (285-295) mOsm/k g Lactic Acid (0.5-2.2) mmol/L Calcium 8.7 (8.5-10.5) mg/dL Magnesium 2.0 (1.7-2.3) mg/dL Total Bilirubin 0.2 (0.15-1.2) mg/dL AST 20 (0-40) U/L ALT 28 (0-41) U/L Alkaline Phosphata se 84 (40-130) IU/L Troponin T Baselin e (0-15) ng/L NT-Pro-B Natriuret Pep 7704 H (0-125) pg/mL Total Protein 6.6 (6.6-8.7) g/dL Albumin 2.6 L (3.5-5.2) g/dL Globulin 4.0 (1.3-4.6) g/dL 04/14/20 04/14/20 04/14/20 Range/Units 12:20 12:20 13:02 WBC (4.0-10.0) 10^3/ uL RBC (4.1-5.3) 10^6/u L Hgb (11.7-16.6) g/dL Hct (42.0-52.0) % MCV (80-94) fL MCH (28.0-34.0) pg MCHC (30.0-36.0) g/dL RDW (12.1-15.1) % Plt Count (130-400) 10^3/c mm MPV (7.4-10.4) fL Neut % (Auto) % Lymph % (Auto) % [place] % (Auto) % Eos % (Auto) % Baso % (Auto) % Neut # (Auto) (1.8-7.7) 10^3/u L Lymph # (Auto) (0.8-4.8) 10^3/u L [place] # (Auto) (0.2-0.9) 10^3/u L Eos # (Auto) (0.0-0.8) 10^3/u L Baso # (Auto) (0.0-0.1) 10^3/u L Nucleated RBC % (a uto) % Nucleated RBCs # /100WBC PT (12.1-14.9) SECO NDS INR (0.8-1.2) Specimen Type Arterial Sample Site Radial, left ABG pH 7.28 L (7.35-7.45) ABG pCO2 56.3 H (35-45) mmHg ABG pO2 97.9 (80.0-100.0) mmH g ABG HCO3 26.3 H (22-26) mmol/L ABG Base Excess -1.3 (-2.0-2.0) mmol/ L Jesus Test Pos Hematocrit 38.8 L (42-52) % O2 Delivery Device Nc O2 Liters/Min 5.0 % FiO2 40.0 % [employer] [place] ID Amh Sodium (136-145) mmol/L Potassium (3.5-5.1) mmol/L Chloride (98-107) mmol/L Carbon Dioxide (22-29) mmol/L Anion Gap (5-19) BUN (6-20) mg/dL Creatinine (0.7-1.2) mg/dL GFR Calculation (90-130) mL/min Glucose (65-115) mg/dL Calculated Osmolal ity (285-295) mOsm/k g Lactic Acid 0.8 (0.5-2.2) mmol/L Calcium (8.5-10.5) mg/dL Magnesium (1.7-2.3) mg/dL Total Bilirubin (0.15-1.2) mg/dL AST (0-40) U/L ALT (0-41) U/L Alkaline Phosphata se (40-130) IU/L Troponin T Baselin e 129 H* (0-15) ng/L NT-Pro-B Natriuret Pep (0-125) pg/mL Total Protein (6.6-8.7) g/dL Albumin (3.5-5.2) g/dL Globulin (1.3-4.6) g/dL Discharge Plan Discharge Patient Disposition: Admitted As Inpatient Admit Provider: Edil Bonner Clinical Impression: CHF exacerbation Qualifiers: Heart failure type: unspecified Qualified Code(s): I50.9 - Heart failure, unspecified Diabetes Qualifiers: Diabetes mellitus type: other specified (including BRYANNA) Diabetes mellitus terminal superintendent insulin use: unspecified intermediate insulin use status Diabetes mellitus complication status: with other specified complication Qualified Code(s): E13.69 - Other specified diabetes mellitus with other specified complication Hypertension Qualifiers: Hypertension type: unspecified Qualified Code(s): I10 - Essential (primary) hypertension Condition: Stable Discharge Date/Time: 09/16/20 16:35 Coding Level of Care Code ED Core Blower for Chg Fwd Exam Comprehensive
[2020-04-14 12:37] LABS: Basophils % 0.5 %; Eosinophils # 0.2 10^3/uL (0.0-0.8); Eosinophils % 2.8 %; Hematocrit 40.5 % (42.0-52.0); Hemoglobin 12.4 g/dL (11.7-16.6); Lymphocytes # 0.9 10^3/uL (0.8-4.8); Lymphocytes % 10.9 %; Mean Corpuscular HGB Conc 30.6 g/dL (30.0-36.0); Mean Corpuscular Hemoglobin 27.6 pg (28.0-34.0); Mean Platelet Volume 10.9 fL (7.4-10.4); Monocytes # 0.7 10^3/uL (0.2-0.9); Monocytes % 8.7 %; Neutrophils # 6.19 10^3/uL (1.8-7.7); Neutrophils % 76.2 %; Nucleated Red Blood Cells % 0 %; Platelet Count 198 10^3/cmm (130-400); Red Cell Distribution Width 14.4 % (12.1-15.1); White Blood Count 8.1 10^3/uL (4.0-10.0)
[2020-04-14] MEDS: nitroglycerin 1 gm/inch oint Pkt 1 INCH TOPICAL (12:40)
[2020-04-14] MEDS: FUROsemide 10 mg/mL SDV 10mL 100 MG IVP (12:41)
[2020-04-14 12:43] LABS: INR 1.05 (0.8-1.2)
[2020-04-14 12:50] LABS: Lactic Sepsis W/Reflex 0.8 mmol/L (0.5-2.2)
[2020-04-14 12:57] LABS: Troponin(5th) Baseline 129 ng/L (0-15)
[2020-04-14 13:01] LABS: Alanine Aminotransferase 28 U/L (0-41); Albumin Level 2.6 g/dL (3.5-5.2); Alkaline Phosphatase 84 IU/L (40-130); Anion Gap 16.7 (5-19); Aspartate Amino Transferase 20 U/L (0-40); Blood Urea Nitrogen 69 mg/dL (6-20); Calcium 8.7 mg/dL (8.5-10.5); Carbon Dioxide 24 mmol/L (22-29); Chloride 103 mmol/L (98-107); Glomerular Filtration Rate 18.6 mL/min (90-130); Glucose 207 mg/dL (65-115); NT Pro B Type Natriuretic Pept 7704 pg/mL (0-125); Osmolality Calculated 314 mOsm/kg (285-295); Potassium 4.7 mmol/L (3.5-5.1); Sodium 139 mmol/L (136-145); Total Bilirubin 0.2 mg/dL (0.15-1.2); Total Protein 6.6 g/dL (6.6-8.7)
[2020-04-14 13:15] LABS: ABG PCO2 56.3 mmHg (35-45); ABG PH Result 7.28 (7.35-7.45); Arterial Blood Gas Hematocrit 38.8 % (42-52); Base Excess ABG -1.3 mmol/L (-2.0-2.0); Blood Gas Allen Test Pos; Blood Gas Operator Identificat AMH; Blood Gas Sample Site Radial, left; Blood Gas Sample Type Arterial; HCO3 ABG 26.3 mmol/L (22-26); Oxygen Device NC; PO2 ABG 97.9 mmHg (80.0-100.0)
--- NOTE | 2020-04-14 13:30 | PC.NURSE ---
Rapid Covid swab collected and sent to lab. Pt tolerating BiPap well and appears comfortable. Comfort measures offered, pt denies needs at this time and sts he is feeling better. BP improving.
[2020-04-14] MEDS: morphine 4 mg/mL SDV 1 mL IVP (13:38)
[2020-04-14 14:03] LABS: SARS Covid-2 Antigen Negative (Negative)
--- NOTE | 2020-04-14 14:16 | ECG_ITS ---
[facility] Test Date: 2020-04-14 Pat Name: Akil Velasco Department: Room: Gender: Male Systems Eng: thong ALSTONB: 1970 Requested By: Amanda Mario Order Number: [id number] MD: Shirin Kendrick M.D. Measurements Intervals [place] Rate: 85 P: 36 AK: 177 QRS: 69 QRSD: 106 T: 43 QT: 384 QTc: 459 Interpretive Statements SINUS RHYTHM LOW QRS VOLTAGE IN EXTREMITY LEADS [QRS DEFLECTION < 0.5 mV IN LIMB LEADS] Compared to ECG 11/08/2019 22:09:26 ST (T wave) deviation no longer present Electronically Signed On 04-14-2020 19:43:11 CDT by Shirin Kendrick M.D. [email or web address]
--- NOTE | 2020-04-14 14:40 | PM.HP ---
Providers/Chief Complaint Primary Care Provider: Sulma Wetzel MD Chief Complaint: cp/rib pain/sob History of Present Illness Akil Velasco is a 50 year old male PMHx of hypertension x 15-20 years, uncontrolled diabetes mellitus x 15 years, dyslipidemia, GERD, depression, CKD stage 3, h/o bilateral partial nephrectomy for cancer, diabetic peripheral neuropathy, nephrotic syndrome, morbid obesity, OHS and very severe obstructive sleep apnea who has had multiple admissions in last couple of months because of CHF exacerbation. He is well-known to me from previous admissions. On examination he is looking a lot better than before. He states he was in his usual health till around 2 weeks ago. He states before that he is actually doing very well and his weight was down to 300 pounds. 2 weeks ago he was walking in his backyard when he slipped and fell and hurt his ribs since then he has been having chest pain. He states he has been gaining weight and and building a fluid in his body with difficulty in breathing for last 3 days. He complains of mild cough but no expectoration, fever, flulike symptoms, myalgia, recent exposure to any known COVID-19 patient's. He states he is compliant to his medications at present takes Bumex 2 times a day. He is not compliant to Trelegy as he thinks he is not able to breathe when he is on the machine. He complains of occasional diarrhea but denies having any abdominal pain, dysuria, headache, dizziness, palpitation, chest pain. His lab in the ER showed a white count of 8.1, hemoglobin of 12.4, INR of 1.05, ABG with a pH of 7.28, CO2 of 56.3, PO2 of 97.9, sodium of 139, potassium 4.7, BUN of 69, creatinine of 3.5, lactate of 0.8, baseline troponin of 129 with 2-hour delta of -7, proBNP of 7704 which was 1300, 4 months ago. Review of Systems General: Reports: 10 or more systems reviewed and unremarkable except in HPI and below Const: Denies: fever(s), chills, body aches, change in appetite, change in weight, malaise, night sweats, diaphoresis, change in sleep pattern, daytime sleepiness or snoring Eyes: Denies: change in vision, blurry vision, photophobia, eye discomfort or eye discharge ENMT: Denies: throat pain, enlarged tonsils, hoarseness, mouth pain, oral sores, dry mouth, tinnitus, nasal congestion or post nasal drip Card: Reports: chest pain, edema and swelling of feet/ankles; Denies: palpitations, irregular heart rhythm, lightheadedness, syncope, pre-syncope, dyspnea on exertion, orthopnea, leg pain with exertion or acrocyanosis Resp: Reports: dyspnea and non-productive cough; Denies: productive cough, wheezing, stridor, pain on inspiration, change in phlegm color, hemoptysis or chest congestion GI: Reports: nausea and diarrhea; Denies: abdominal pain, vomiting, hematemesis, coffee ground emesis, dysphagia, heartburn, constipation, bloating, GI cramping, change in bowel habits, pain on defecation, hematochezia or melena : Denies: flank pain, difficulty urinating, dysuria, urinary frequency, urinary urgency, urinary hesitancy, urinary dribbling, difficulty starting urination, change in urine stream, nocturia or hematuria Musc: Denies: neck pain, back pain, extremity pain, joint pain, joint swelling, joint redness, joint stiffness or limited range of motion Neuro: Denies: headache(s), numbness in extremities, weakness in extremities, sensory changes, lack of coordination, difficulty walking, frequent falls, dizziness, vertigo, confusion, Slurred speech present, difficulty communicating thoughts or seizure-like activity Psych: Denies: anxiety, depression, mood swings, panic attacks, hopelessness or irritability Endo: Denies: polyuria, polydipsia, tired all the time, cold intolerance, excessive sweating, flushing or heat intolerance Ramy/Lymph: Denies: easy bruising or easy bleeding All/Imm: Denies: tongue swelling, facial swelling or acute wheezing Medications/Allergies Home Medications Medication Instructions Recorded Confirmed Last Taken Type gabapentin 600 mg tablet See Rx Instructions .ROUTE 08/04/19 04/14/20 10/04/19 History .COMPLEX PRN carvedilol 25 mg PO BIDPC #60 tab 11/11/19 04/14/20 04/14/20 Rx aspirin 81 mg tablet,delayed 81 mg PO DAILY 04/20/20 09/16/20 09/16/20 History release amlodipine 10 mg tablet 10 mg PO DAILY #90 tab 03/25/20 04/14/20 04/14/20 Rx bumetanide 2 mg tablet 2 mg PO DAILY tab 03/25/20 04/14/20 04/14/20 History clonidine HCl 0.2 mg tablet 0.2 mg PO TID 03/25/20 04/14/20 04/14/20 History insulin degludec 200 unit/mL (3 20 unit SUBCUT DAILY 03/25/20 04/14/20 04/14/20 History mL) subcutaneous pen insulin glulisine U-100 [Apidra 16 unit SUBCUT TID 04/14/20 04/14/20 Unknown History U-100 Insulin] venlafaxine 75 mg PO DAILY 04/14/20 04/14/20 04/13/20 History Allergies Allergy/AdvReac Type Severity Reaction Status Date / Time No Known Allergies Allergy Verified 04/14/20 13:57 PFSH Acute PFSH: Medical History Accelerated hypertension Acute on chronic diastolic (congestive) heart failure Mapwv-ea-prlwqzv kidney injury Anasarca Cancer Cataract (lens) fragments in eye following cataract surgery, bilateral CKD stage 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 Congestive cardiac failure Diabetes Fracture of fifth metatarsal bone of left foot Fracture of fourth metatarsal bone of left foot Hypertension Laceration Metabolic alkalosis Neuropathy PVD (peripheral vascular disease) Type 2 diabetes mellitus with diabetic polyneuropathy Surgical History H/O partial nephrectomy bilateral Hx of lymph node excision Family History Father Diabetes Mother Diabetes Grandfather Diabetes Cancer Other Hyperlipidemia Social History Smoking and tobacco status: never smoked Alcohol intake: current Alcohol intake frequency: holidays/special occasions only Lives independently: Yes Household members: spouse Housing: House Marital status: Current occupational status: retired History of recent travel: No Current gender identity: Male Vitals/I&O/Wt Last Vital Signs Temp 97.3 F L 04/14/20 12:08 Pulse 83 04/14/20 13:18 Resp 18 04/14/20 13:38 BP 195/123 04/14/20 13:18 Pulse Ox 94 04/14/20 13:18 Weight last 48 hrs Weight 156.489 kg Physical Exam Narrative: EXAM NARRATIVE: General: No acute distress, AO x3 HEENT: PERRLA, pupils bilaterally equal and reactive Chest: Normal vesicular breath sounds, no added sounds, equal good air entry bilaterally CVS: S1-S2 regular, pansystolic murmur at apex 2/6, no tachycardia, no gallops, no rubs Abdomen: Soft, nontender, no organomegaly, bowel sounds present Neuro: No focal deficits, no facial deformity, AO x3, power 5/5 in all limbs Extremities: Bilateral legs 1+ pedal edema up to the knee, mild erythema without localized rise in temperature Data : 04/14/20 12:20 04/14/20 12:20 A&P Assessment and plan (1) CHF exacerbation: Status: Acute Qualifiers: Heart failure type: unspecified Qualified Code(s): I50.9 - Heart failure, unspecified (2) Acute and chronic respiratory failure ([id number]): Status: Acute Qualifiers: Respiratory failure complication: hypoxia and hypercapnia Qualified Code(s): J96.21 - Acute and chronic respiratory failure with hypoxia; J96.22 - Acute and chronic respiratory failure with hypercapnia (3) Acute kidney injury superimposed on chronic kidney disease: Status: Acute (4) CKD stage 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: Status: Acute (5) Anasarca: Status: Acute (6) Nephrotic range proteinuria: Status: Acute (7) Scrotal swelling: Status: Acute (8) Hypertension: Status: Acute (9) Diabetes: Status: Acute (10) Obesity hypoventilation syndrome: Status: Acute (11) Obstructive sleep apnea: Status: Acute (12) Elevated troponin: Status: Acute Additional A&P Information Acute on chronic respiratory failure with both hypoxia and hypercapnia: Combination of acute decompensated diastolic and systolic congestive heart failure along with service obstructive sleep apnea. This is getting more complicated because of nephrotic syndrome. Patient continues to remain noncompliant with trilogy machine. He states he is compliant with his diuretics at home. Last echocardiogram was very technically difficult, with poor data. LV function probably mildly decreased. Myocardial perfusion study (08/11/2019) 1. Small size perfusion abnormality of moderate severity of apical anterior and apical lateral farias with improved tracer uptake on stress images. This is suggestive of attenuation artifact. 2. The left ventricular ejection fraction is severely reduced with a value of 25%. 3. Global hypokinesis more pronounced in apical farias. 4. No coronary ischemia based on the study. Start patient on 80 mg IV Lasix twice daily. Patient is already received 100 mg of Lasix in the ER. Melgar catheterization for strict input output charting. Strict daily weights. Oxygen supplementation keeping saturation over 90%. Check procalcitonin, CT chest to rule out rib fracture, infiltrate. For now we will hold off on antibiotic as patient does not give any history of fever or expectoration. Rapid COVID-19 was negative in the ER. BiPAP nightly for severe obstructive sleep apnea. Elevated troponins: Baseline less than last time. Most likely because of renal dysfunction. Delta negative in 2 hours. Patient is chest pain-free. KAYLEEN on chronic kidney disease: Nephrotic syndrome: Most likely because of cardiorenal syndrome on top of diabetic nephropathy. Baseline creatinine 2-2.5. Medical reconciliation done for nephrotoxic drugs. Patient does not have any metabolic acidosis or electrolyte abnormality at present. We will continue to monitor. Hypertension: Goal blood pressure less than 140/90 mmHg. At home patient takes carvedilol 25 mg twice daily, clonidine 0.2 p.o. 3 times daily, amlodipine 10 mg. We will continue the same. If blood pressure continues to remain high will start on nitro drip. Type 2 diabetes mellitus: Last A1c done in November 04.1. Insulin sliding scale at moderate dose before meals and at bedtime. Cardiac low-salt diabetic diet. Long-acting insulin at home dose. Full code. Heparin 5000 every 12. Famotidine for PUD prophylaxis. Attestations Medical Necessity Statement*: More than 2 midnights for acute on chronic respiratory failure, congestive heart failure Coding Level of Care Code Acute Gyroscopic Engineering Technician for g Fwd Diagnoses CHF exacerbation I50.9 Heart failure type: unspecified Acute and chronic respiratory failure ([id number]) J96.21; J96.22 Respiratory failure complication: hypoxia and hypercapnia Acute kidney injury superimposed on chronic kidney disease N17.9; N18.9 CKD stage 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 E11.22; N18.3 Anasarca R60.1 Nephrotic range proteinuria R80.9 Scrotal swelling N50.89 Hypertension I10 Diabetes E11.9 Obesity hypoventilation syndrome E66.2 Obstructive sleep apnea G47.33 Elevated troponin R79.89
--- NOTE | 2020-04-14 14:46 | CT_ITS ---
WS: [id number] EXAM: CT chest wo con [id number] DATE OF EXAMINATION: 04/14/2020, 1615 hours COMPARISON: CT of the chest from 11/08/2019 HISTORY: 50 years old with a history of congestive heart failure, shortness of breath and rib pain. History of renal cancer. Follow-up groundglass infiltrates. TECHNIQUE: Transaxial computed tomography images obtained through the chest without the utilization o f contrast with images viewed in multiple windows with reconstructions. DLP: 997.[address] scans at [facility] use at least one of these dose optimization techniques: automat ed exposure control; mA and/or kV adjustment per patient size (includes targeted exams where dose is matched to clinical indication); or iterative reconstruction. FINDINGS: There is a small nodular density upper outer aspect right upper lobe not present on prior imaging mos t likely represents a small area of inflammatory response or pneumonitis. Overall groundglass attenua tion within both lungs has for the most part fairly prominently regressed. Minimal groundglass infilt rate is seen within the right middle lobe at the level of the bifurcation between the medial and late ral segments. Minimal infiltrate suggesting atelectasis right lung base has slightly improved. Some d egree of infiltrate remains. Small right effusion similar. There are fractures involving the anterior lateral left T6, T7 and T8 ribs new since the prior examination suggesting interval trauma. Soft tis dee density associated with the anterior lateral left T6 rib fracture not seen in the prior examinati on which appears to be fatty in appearance on today's exam. Trace left effusion has slightly increase d in the interim. Left base infiltrate suggesting atelectasis has slightly worsened as well. Possibly related to splinting from the rib fractures. Adenopathy within the mediastinum again demonstrated. Some appears to be pathologically enlarged. Unc hanged in the interim. Heart size is enlarged but similar. Small pericardial effusion seen. Thoracic and upper abdominal aorta is normal in caliber. Anasarca type of appearance to the patient is similar . Liver attenuation is similar. Spleen is incompletely imaged. Was reportedly enlarged on prior imaging. This cannot be assessed on t he examination secondary to incomplete coverage of the cranial to caudal dimensions. Small supraumbil ical midline hernia. CT/CT chest wo con [id number] IMPRESSION: Interval development of left anterolateral T6-T8 fractures without displacement . Presumably related to trauma. Decreasing groundglass attenuation within both lungs. Tiny focus of nodular inf iltrate new in the right upper lobe since prior examination suggesting area of inflammatory change or pneumonitis. Considered minute in size. Increasing infiltrate left lung base presumably atelectasis related to the rib fractures. Small amount of increasing left pleural fluid. Persistent right pleural fluid which appears similar. Decreasing infiltrate/ate lectasis right lung base. Persistent findings of adenopathy within the mediastinum which appears stable.
[2020-04-14 14:56] LABS: Troponin 5 2HR 121.9 ng/L (0-15); Troponin 5 2HR Delta -7.1 ABS# (0-10)
[2020-04-14 15:48] LABS: Procalcitonin 0.22 ng/mL (0-0.5)
[2020-04-14 16:03] LABS: Iron 46 ug/dL (59-158); Percent Saturation 19.1 % (20-50); Total Iron Binding Capacity 240 mcg/dl; Unsaturated Iron Binding 194 ug/dL (112-347)
[2020-04-14 17:04] LABS: Glucose Point of Care 127 mg/dL (70-110)
[2020-04-14] MEDS: carvedilol 25 mg Tablet PO (17:27)
[2020-04-14] MEDS: famotidine 20 mg/2 mL INJ IVP (17:27)
[2020-04-14] MEDS: FUROsemide 10 mg/mL SDV 10mL 80 MG IVP (17:28)
[2020-04-14] MEDS: heparin 5,000 unit/mL INJ 1 mL 5000 UNIT SUBCUT (17:28)
[2020-04-14 17:40] LABS: Add Urine Microscopic? YES; Bilirubin Urine Neg (Negative); Blood Urine Neg (Negative); Glucose Urine UA 1+ (Normal); Ketones Urine Negative (Negative); Leukocyte Esterase Urine Negative (Negative); Nitrate Urine Negative (Negative); Protein Urine 3+ (Negative); Specific Gravity, Urine 1.015 (1.005-1.030); Urine Appearance Hazy (CLEAR); Urine Color Yellow (Yellow); Urobilinogen Urine Norm (Negative); pH Urine 5 (5-7)
[2020-04-14 17:49] LABS: WBC Urine 0-4 /hpf (0-5)
[2020-04-14 17:50] LABS: Add Urine Culture? No; Amorphous Sediment Urine 2+ /hpf; Bacteria Urine 2+ /hpf
[2020-04-14 18:50] LABS: Troponin 5 6HR Delta 0.4 ng/L (0-12)
[2020-04-14 19:03] LABS: Blood Urine 2+ (Negative); Glucose Urine UA Trace (Normal); Ketones Urine Negative (Negative); Protein Urine 2+ (Negative); Urine Appearance Clear (CLEAR); Urine Color Straw (Yellow); pH Urine 6 (5-7)
[2020-04-14 19:04] LABS: Bilirubin Urine Neg (Negative); Leukocyte Esterase Urine Negative (Negative); Nitrate Urine Negative (Negative); Urobilinogen Urine Norm (Negative)
[2020-04-14 19:07] LABS: Bacteria Urine TRACE /hpf; Fine Granular Casts Urine 0-4 /lpf; RBC Urine 25-40 /hpf (0-2)
[2020-04-14 19:08] LABS: Add Urine Culture? Yes
[2020-04-14 19:14] LABS: Troponin 5 6HR 129.4 ng/L (0-15)
[2020-04-14] MEDS: ipratropium-albuterol 3 mL Neb INHALATION (20:00)
[2020-04-14 20:22] LABS: Glucose Point of Care 126 mg/dL (70-110)
[2020-04-14] MEDS: cloNIDine 0.1 mg Tablet 0.2 MG PO (20:24)
[2020-04-14] MEDS: morphine 4 mg/mL SDV 1 mL 2 MG IVP (20:31)
[2020-04-15] VITALS (20 sets, daily range): BP systolic 144–192; BP diastolic 88–107; PULSE 75–92; RESP 10–24; TEMP 36.6–37; O2SAT 92–98
[2020-04-15] MEDS: morphine 4 mg/mL SDV 1 mL 2 MG IVP ×3 (00:23→08:03)
[2020-04-15] MEDS: hyDRALAzine 20 mg/mL INJ 1 mL 10 MG IVP (00:37)
[2020-04-15] MEDS: ipratropium-albuterol 3 mL Neb INHALATION ×3 (02:50→20:47)
[2020-04-15] MEDS: famotidine 20 mg/2 mL INJ IVP ×2 (04:08→16:14)
[2020-04-15] MEDS: heparin 5,000 unit/mL INJ 1 mL 5000 UNIT SUBCUT ×2 (04:09→16:26)
[2020-04-15 05:11] LABS: Basophils % 0.5 %; Eosinophils # 0.3 10^3/uL (0.0-0.8); Eosinophils % 3.4 %; Hematocrit 36.1 % (42.0-52.0); Hemoglobin 11.2 g/dL (11.7-16.6); Lymphocytes % 12.7 %; Mean Corpuscular Volume 90.3 fL (80-94); Mean Platelet Volume 11.6 fL (7.4-10.4); Monocytes # 0.7 10^3/uL (0.2-0.9); Monocytes % 9.9 %; Neutrophils # 5.45 10^3/uL (1.8-7.7); Neutrophils % 73.1 %; Nucleated Red Blood Cells % 0.3 %; Platelet Count 197 10^3/cmm (130-400); Red Cell Distribution Width 14.2 % (12.1-15.1); White Blood Count 7.5 10^3/uL (4.0-10.0)
[2020-04-15 05:51] LABS: Alanine Aminotransferase 23 U/L (0-41); Albumin Level 2.4 g/dL (3.5-5.2); Alkaline Phosphatase 77 IU/L (40-130); Anion Gap 13.4 (5-19); Aspartate Amino Transferase 16 U/L (0-40); Blood Urea Nitrogen 69 mg/dL (6-20); Calcium 8.6 mg/dL (8.5-10.5); Carbon Dioxide 26 mmol/L (22-29); Chloride 104 mmol/L (98-107); Globulin 3.6 g/dL (1.3-4.6); Glomerular Filtration Rate 19.3 mL/min (90-130); Glucose 137 mg/dL (65-115); Osmolality Calculated 310 mOsm/kg (285-295); Phosphorus 4.5 mg/dL (2.5-4.5); Potassium 4.4 mmol/L (3.5-5.1); Sodium 139 mmol/L (136-145); Total Bilirubin 0.2 mg/dL (0.15-1.2)
[2020-04-15 06:11] LABS: Glucose Point of Care 114 mg/dL (70-110)
[2020-04-15] MEDS: FUROsemide 10 mg/mL SDV 10mL 80 MG IVP ×2 (08:01→19:52)
[2020-04-15] MEDS: cloNIDine 0.1 mg Tablet 0.2 MG PO ×3 (08:02→20:02)
[2020-04-15] MEDS: aspirin 81 mg EC Tablet PO (08:02)
[2020-04-15] MEDS: carvedilol 25 mg Tablet PO ×2 (08:02→20:02)
[2020-04-15] MEDS: venlafaxine ER (24HR) 75 mg Capsule PO (08:02)
[2020-04-15] MEDS: amlodipine 10 mg Tablet PO (08:02)
--- NOTE | 2020-04-15 08:09 | PM.PN ---
Subjective Subjective: Interval history: No acute events overnight. Patient states he is feeling a lot better. He is still requiring 2-1/2 L oxygen supplementation to keep saturation over 90%. He has put out around 2 L urine since yesterday. He is complaining of pain on the right side of his chest going into his back. Denies of any nausea, vomiting, headache, dizziness, chest pain. Vitals/I&O/Wt Last Vital Signs Temp 98.6 F 04/15/20 07:03 Pulse 86 04/15/20 07:03 Resp 24 H 04/15/20 08:03 BP 164/93 04/15/20 07:03 Pulse Ox 96 04/15/20 07:03 04/14/20 04/15/20 04/15/20 22:59 06:59 14:59 Intake Total 240 / 240 550 / 790 Output Total 3350 / 3350 1400 / 4750 Balance -3110 / -3110 -850 / -3960 Weight last 48 hrs Weight 166.741 kg Weight 156.489 kg Physical Exam Narrative: EXAM NARRATIVE: General: No acute distress, AO x3 HEENT: PERRLA, pupils bilaterally equal and reactive Chest: Normal vesicular breath sounds, no added sounds, equal good air entry bilaterally CVS: S1-S2 regular, pansystolic murmur at apex 2/6, no tachycardia, no gallops, no rubs Abdomen: Soft, nontender, no organomegaly, bowel sounds present Neuro: No focal deficits, no facial deformity, AO x3, power 5/5 in all limbs Extremities: Bilateral legs 1+ pedal edema up to the knee, mild erythema without localized rise in temperature Urinary Catheter Management^: Melgar: Cath Placed During This Visit: yes Reason for Continuing Indwelling Catheter: Accurate Measurement of Urinary Output in Critically Ill Patients Urinary Catheter Date of Insertion: 04/14/20 Urinary Catheter Time of Insertion: 16:00 Data : 04/15/20 04:05 04/15/20 04:05 A&P Assessment and plan (1) CHF exacerbation: Status: Acute Qualifiers: Heart failure type: unspecified Qualified Code(s): I50.9 - Heart failure, unspecified (2) Acute and chronic respiratory failure ([id number]): Status: Acute Qualifiers: Respiratory failure complication: hypoxia and hypercapnia Qualified Code(s): J96.21 - Acute and chronic respiratory failure with hypoxia; J96.22 - Acute and chronic respiratory failure with hypercapnia (3) Acute kidney injury superimposed on chronic kidney disease: Status: Acute (4) CKD stage 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: Status: Acute (5) Anasarca: Status: Acute (6) Nephrotic range proteinuria: Status: Acute (7) Scrotal swelling: Status: Acute (8) Hypertension: Status: Acute Qualifiers: Hypertension type: unspecified Qualified Code(s): I10 - Essential (primary) hypertension (9) Diabetes: Status: Acute Qualifiers: Diabetes mellitus complication status: with other specified complication Diabetes mellitus computer terminal operator insulin use: unspecified penitentiary insulin use status Diabetes mellitus type: other specified (including BRYANNA) Qualified Code(s): E13.69 - Other specified diabetes mellitus with other specified complication (10) Obesity hypoventilation syndrome: Status: Acute (11) Obstructive sleep apnea: Status: Acute (12) Elevated troponin: Status: Acute (13) Other fracture of T7-t8 thoracic vertebra, initial encounter for closed fracture: Status: Acute Additional A&P Information Acute on chronic respiratory failure with both hypoxia and hypercapnia: Combination of acute decompensated diastolic and systolic congestive heart failure along with service obstructive sleep apnea. This is getting more complicated because of nephrotic syndrome. Patient continues to remain noncompliant with trilogy machine. He states he is compliant with his diuretics at home. Last echocardiogram was very technically difficult, with poor data. LV function probably mildly decreased. Myocardial perfusion study (08/11/2019) 1. Small size perfusion abnormality of moderate severity of apical anterior and apical lateral farias with improved tracer uptake on stress images. This is suggestive of attenuation artifact. 2. The left ventricular ejection fraction is severely reduced with a value of 25%. 3. Global hypokinesis more pronounced in apical farias. 4. No coronary ischemia based on the study. Continue Lasix 80 mg IV twice daily. Melgar catheterization for strict input output charting. Strict daily weights. Oxygen supplementation keeping saturation over 90%. CT chest done yesterday negative for any infiltrate. Patient has remained afebrile. Continue to hold off on antibiotics. COVID-19 rapid antigen negative in the ER. For now patient does not require or meet any criteria to get COVID PCR. BiPAP nightly for severe obstructive sleep apnea. Elevated troponins: Baseline less than last time. Most likely because of renal dysfunction. Delta negative in 2 hours. Patient is chest pain-free. KAYLEEN on chronic kidney disease: Nephrotic syndrome: Most likely because of cardiorenal syndrome on top of diabetic nephropathy. Baseline creatinine 2-2.5. Creatinine improving. Medical reconciliation done for nephrotoxic drugs. Patient does not have any metabolic acidosis or electrolyte abnormality at present. We will continue to monitor. T6-T8 vertebral fracture: Closed: Most likely related to the trauma he had 2 weeks ago after a fall. Patient does not have any neurological stigmata because of the fall or fracture. Lidocaine patch for pain control, incentive spirometry. Physical therapy. Hypertension: Goal blood pressure less than 140/90 mmHg. At home patient takes carvedilol 25 mg twice daily, clonidine 0.2 p.o. 3 times daily, amlodipine 10 mg. Patient's blood pressure still mildly elevated. Will add on hydrochlorothiazide 25 mg daily. Will also help him with his nephrotic syndrome. Did discuss start with manager of construction. He states hydrochlorothiazide will be a better medication for him because it will prevent sodium absorption as well which will help him with his anasarca also. If blood pressure continues to remain high will start on nitro drip. Type 2 diabetes mellitus: Last A1c done in November 04.. Insulin sliding scale at moderate dose before meals and at bedtime. Cardiac low-salt diabetic diet. Long-acting insulin at home dose. Full code. Heparin 5000 every 12. Famotidine for PUD prophylaxis. Attestations Medical Necessity Statement*: Generalized anasarca, acute on chronic hypoxic respiratory failure, CHF exacerbation. Time Spent in Patient Care: Greater than 35 minutes (>than 50% of time spent in counselling and/or direct pt care on unit). Coding Level of Care Code Acute Flight Operations Engineer for [facility] Fwd Diagnoses CHF exacerbation I50.9 Heart failure type: unspecified Acute and chronic respiratory failure ([id number]) J96.21; J96.22 Respiratory failure complication: hypoxia and hypercapnia Acute kidney injury superimposed on chronic kidney disease N17.9; N18.9 CKD stage 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 E11.22; N18.3 Anasarca R60.1 Nephrotic range proteinuria R80.9 Scrotal swelling N50.89 Hypertension I10 Hypertension type: unspecified Diabetes E13.69 Diabetes mellitus complication status: with other specified complication Diabetes mellitus penitentiary insulin use: unspecified computer terminal operator insulin use status Diabetes mellitus type: other specified (including BRYANNA) Obesity hypoventilation syndrome E66.2 Obstructive sleep apnea G47.33 Elevated troponin R79.89 Other fracture of T7-t8 thoracic vertebra, initial encounter for closed fracture S22.482E
[2020-04-15] MEDS: gabapentin 300 mg Capsule PO ×2 (08:20→20:02)
[2020-04-15] MEDS: lidocaine 5% Patch 1 PATCH TOPICAL (08:21)
[2020-04-15 11:15] LABS: Glucose Point of Care 149 mg/dL (70-110)
[2020-04-15] MEDS: TRAMadol 50 mg Tablet PO (12:04)
--- NOTE | 2020-04-15 15:23 | PC.CHAP ---
Pastoral Care Encounter/Spiritual Assessment Type of Contact [] Declined nuclear instructor visit [] Patient/Family/Request visit [] Outpatient visit [] Follow-up visit [] Physician referral [] Code/Alert [x] Routine visit [] Staff referral [] Actively dying [] Patient sleeping [] Family support [] [] Out of room [] Palliative care [] [x] Receiving care in room [] Pre-surgical visit [] Trauma [] Long length of stay [] ICU visit [] Other: Relational/Emotional Strength [] Patient feels connected with others/family/visitors/staff [x] Distress [] Loneliness/isolation [] Abandonment Spirituality of Patient [x] Person of Lizabeth [] Attends Orthodox of their Lizabeth [x] Believes in Prayer [] Reads Bible or Anabaptist materials [] There are Spiritual issues to be addressed Head And Neck Surgeon Interventions [x] Prayer [x] Active listening [x] Non-anxious presence [x] Spiritual/emotional support [] Crisis/trauma care [x] Spiritual counseling [] Bereavement support [] Provided bereavement packet [] Provided Bible/devotional materials [] Provided toy/stuffed animal, coloring book to patient or family member [] Provided Communion [] Anointing/[place] [] Salvation [x] Completed spiritual assessment [] Other: Impact on Illness or Injury [] Angry [] Fearful [] Anxious [] Often cries [] Exhaustion [] Unable to work [] Unable to attend muslim [] Unable to walk/stand [] Unable to read [] Unable to drive [] Unable to eat/drink [] Unable to sleep [] Unable to be with family [] Patient intubated [] Other: Summary 3 negatives in her health, she has a good attitude, doesn't know when she will go home Time spent with patient 10 mins
[2020-04-15] MEDS: hydroCHLOROthiazide 25 mg Tablet PO (16:27)
[2020-04-15 16:37] LABS: Glucose Point of Care 114 mg/dL (70-110)
[2020-04-15 20:34] LABS: Glucose Point of Care 136 mg/dL (70-110)
--- NOTE | 2020-04-15 21:51 | PC.NURSE ---
ASSUMED CARE AT SHIFT CHANGE. PT WAS UP TO SHOWER. PT DENIED PAIN. WILL CONTINUE TO MONITOR. AGGARWAL BAG WAS LEAKING, BAG WAS REPLACED.
[2020-04-16] VITALS (9 sets, daily range): BP systolic 156–190; BP diastolic 76–116; PULSE 67–78; RESP 15–18; TEMP 36.6–37; O2SAT 93–98
[2020-04-16] MEDS: TRAMadol 50 mg Tablet PO ×4 (00:13→22:58)
[2020-04-16] MEDS: famotidine 20 mg/2 mL INJ IVP ×2 (03:39→15:31)
[2020-04-16] MEDS: heparin 5,000 unit/mL INJ 1 mL 5000 UNIT SUBCUT ×2 (03:39→15:31)
--- NOTE | 2020-04-16 04:36 | PC.NURSE ---
PT APPEARED TO HAVE RESTED WITH EYES CLOSED. PT AMBULATED THE [place] MULTIPLE TIMES. PT C/O 8/10 PAIN IN BACK. PT WANTS TO WAIT FOR PRN TRAMADOL WHICH WILL BE AVAILABLE IN 1 HR. WILL CONTINUE TO MONITOR. WILL GIVE REPORT TO ONCOMING NURSE.
[2020-04-16 05:17] LABS: Alanine Aminotransferase 21 U/L (0-41); Albumin Level 2.5 g/dL (3.5-5.2); Alkaline Phosphatase 83 IU/L (40-130); Anion Gap 13.1 (5-19); Aspartate Amino Transferase 14 U/L (0-40); Blood Urea Nitrogen 67 mg/dL (6-20); Calcium 8.9 mg/dL (8.5-10.5); Carbon Dioxide 28 mmol/L (22-29); Chloride 103 mmol/L (98-107); Globulin 3.9 g/dL (1.3-4.6); Glomerular Filtration Rate 18.6 mL/min (90-130); Glucose 138 mg/dL (65-115); Osmolality Calculated 312 mOsm/kg (285-295); Potassium 4.1 mmol/L (3.5-5.1); Sodium 140 mmol/L (136-145); Total Bilirubin 0.3 mg/dL (0.15-1.2); Total Protein 6.4 g/dL (6.6-8.7)
[2020-04-16 06:41] LABS: Glucose Point of Care 143 mg/dL (70-110)
[2020-04-16] MEDS: carvedilol 25 mg Tablet PO ×2 (07:47→17:08)
--- NOTE | 2020-04-16 08:06 | PC.NURSE ---
Patient sitting on side of bed at time of assessment. No needs identified at this time. Nurse to continue to monitor.
--- NOTE | 2020-04-16 08:18 | P.PN_ITS ---
Subjective Subjective: Interval history: No acute events overnight. Patient states he is feeling a lot better. He is still requiring 2-1/2 L oxygen supplementation to keep saturation over 90%. As per the chart he put out around 6 L urine yesterday and is overall 4 L negative in last 24 hours. He is complaining of pain on the right side of his chest going into his back. Denies of any nausea, vomiting, headache, dizziness, chest pain. Vitals/I&O/Wt Last Vital Signs Temp 97.9 F 04/16/20 07:37 Pulse 70 04/16/20 07:37 Resp 15 04/16/20 07:37 BP 167/114 04/16/20 03:14 Pulse Ox 97 04/16/20 07:37 04/15/20 04/16/20 04/16/20 22:59 06:59 14:59 Intake Total 860 / 1460 350 / 1810 240 / 240 Output Total 1450 / 3770 2100 / 5870 950 / 950 Balance -590 / -2310 -1750 / -4060 -710 / -710 Weight last 48 hrs Weight 163.293 kg Weight 166.741 kg Weight 156.489 kg Physical Exam Narrative: EXAM NARRATIVE: General: No acute distress, AO x3 HEENT: PERRLA, pupils bilaterally equal and reactive Chest: Normal vesicular breath sounds, no added sounds, equal good air entry bilaterally CVS: S1-S2 regular, pansystolic murmur at apex 2/6, no tachycardia, no gallops, no rubs Abdomen: Soft, nontender, no organomegaly, bowel sounds present Neuro: No focal deficits, no facial deformity, AO x3, power 5/5 in all limbs Extremities: Bilateral legs 1+ pedal edema up to the knee, mild erythema without localized rise in temperature Urinary Catheter Management^: Melgar: Cath Placed During This Visit: yes Reason for Continuing Indwelling Catheter: Acute Urinary Retention or Obstruction Urinary Catheter Date of Insertion: 04/14/20 Urinary Catheter Time of Insertion: 16:00 Data : 04/15/20 04:05 04/16/20 04:20 A&P Assessment and plan (1) CHF exacerbation: Status: Acute Qualifiers: Heart failure type: unspecified Qualified Code(s): I50.9 - Heart failure, unspecified (2) Acute and chronic respiratory failure ([id number]): Status: Acute Qualifiers: Respiratory failure complication: hypoxia and hypercapnia Qualified Co de(s): J96.21 - Acute and chronic respiratory failure with hypoxia; J96.22 - Acute and chronic respiratory failure with hypercapnia (3) Acute kidney injury superimposed on chronic kidney disease: Status: Acute (4) CKD stage 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: Status: Acute (5) Anasarca: Status: Acute (6) Nephrotic range proteinuria: Status: Acute (7) Scrotal swelling: Status: Acute (8) Hypertension: Status: Acute Qualifiers: Hypertension type: unspecified Qualified Code(s): I10 - Essential (primary) hypertension (9) Diabetes: Status: Acute Qualifiers: Diabetes mellitus complication status: with other specified complication Diabetes mellitus shelter insulin use: unspecified long term care pharmacist insulin use status Diabetes mellitus type: other specified (including BRYANNA) Qualified Code(s): E13.69 - Other specified diabetes mellitus with other specified complication (10) Obesity hypoventilation syndrome: Status: Acute (11) Obstructive sleep apnea: Status: Acute (12) Elevated troponin: Status: Acute (13) Other fracture of T7-t8 thoracic vertebra, initial encounter for closed fra cture: Status: Acute Additional A&P Information Acute on chronic respiratory failure with both hypoxia and hypercapnia: Combination of acute decompensated diastolic and systolic congestive heart failure along with service obstructive sleep apnea. This is getting more complicated because of nephrotic syndrome. Patient continues to remain noncompliant with trilogy machine. He states he is compliant with his diuretics at home. Last echocardiogram was very technically difficult, with poor data. LV function probably mildly decreased. Myocardial perfusion study (08/11/2019) 1. Small size perfusion abnormality of moderate severity of apical anterior and apical lateral farias with improved tracer uptake on stress images. This is suggestive of attenuation artifact. 2. The left ventricular ejection fraction is severely reduced with a value of 25%. 3. Global hypokinesis more pronounced in apical farias. 4. No coronary ischemia based on the study. Continue Lasix 80 mg IV twice daily. Melgar catheterization for strict input output charting. Patient is overall 4.5 L negative. Start patient on fluid restriction up to 1500 cc. Strict daily weights. Oxygen supplementation keeping saturation over 90%. CT chest done yesterday negative for any infiltrate. Patient has remained afebrile. Continue to hold off on antibiotics. COVID-19 rapid antigen negative in the ER. For now patient does not require or meet any criteria to get COVID PCR. BiPAP nightly for severe obstructive sleep apnea. Elevated troponins: Baseline less than last time. Most likely because of renal dysfunction. Delta negative in 2 hours. Patient is chest pain-free. KAYLEEN on chronic kidney disease: Nephrotic syndrome: Creatinine stable and still elevated. Patient is making good amount of urine. Most likely because of cardiorenal syndrome on top of diabetic nephropathy. Baseline creatinine 2-2.5. Medical reconciliation done for nephrotoxic drugs. Patient does not have any metabolic acidosis or electrolyte abnormality at p resent. We will continue to monitor. Urine culture growing enterococcus: Similar in the past. Patient does not have any symptoms of dysuria, fever, leukocytosis. For now we will hold off on antibiotics. T6-T8 vertebral fracture: Closed: Most likely related to the trauma he had 2 weeks ago after a fall. Patient does not have any neurological stigmata because of the fall or fracture. Lidocaine patch for pain control, incentive spirometry. Physical therapy. Hypertension: Goal blood pressure less than 140/90 mmHg. At home patient takes carvedilol 25 mg twice daily, clonidine 0.2 p.o. every 8 hours, amlodipine 10 mg. Patient's blood pressure still mildly elevated. Will add on hydrochlorothiazide 25 mg daily. Will also help him with his nephrotic syndrome. Did discuss start with operations planner. He states hydrochlorothiazide will be a better medication for him because it will prevent sodium absorption as well which will help him with his anasarca also. We will recheck blood pressure later in the day and if continues to remain elevated can add on a small dose of Imdur. Type 2 diabetes mellitus: Last A1c done in November 04.. Insulin sliding scale at moderate dose before meals and at bedtime. Cardiac low-salt diabetic diet. Long-acting insulin at home dose. Full code. Heparin 5000 every 12. Famotidine for PUD prophylaxis. Attestations Medical Necessity Statement*: Congestive heart failure, high blood pressure, KAYLEEN Time Spent in Patient Care: Greater than 35 minutes (>than 50% of time spent in counselling and/or direct pt care on unit) . Coding Level of Care Code Acute Anesthesiologist Attending for [facility] Diagnoses CHF exacerbation I50.9 Heart failure type: unspecified Acute and chronic respiratory failure ([id number]) J96.21; J96.22 Respiratory failure complication: hypoxia and hypercapnia Acute kidney injury superimposed on chronic kidney disease N17.9; N18.9 CKD stage 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 E11.22; N18.3 Anasarca R60.1 Nephrotic range proteinuria R80.9 Scrotal swelling N50.89 Hypertension I10 Hypertension type: unspecified Diabetes E13.69 Diabetes mellitus complication status: with other specified complication Diabetes mellitus shelter insulin use: unspecified shelter insulin use status Diabetes mellitus type: other specified (including BRYANNA) Obesity hypoventilation syndrome E66.2 Obstructive sleep apnea G47.33 Elevated troponin R79.89 Other fracture of T7-t8 thoracic vertebra, initial encounter for closed fracture S22.569G
--- NOTE | 2020-04-16 08:20 | PC.NURSE ---
Dr. Bonner updated on patient condition. Physician to make medication changes to improve BP control.
[2020-04-16] MEDS: venlafaxine ER (24HR) 75 mg Capsule PO (08:39)
[2020-04-16] MEDS: hydroCHLOROthiazide 25 mg Tablet PO (08:39)
[2020-04-16] MEDS: gabapentin 300 mg Capsule PO ×2 (08:40→17:08)
[2020-04-16] MEDS: amlodipine 10 mg Tablet PO (08:40)
[2020-04-16] MEDS: cloNIDine 0.1 mg Tablet 0.2 MG PO ×2 (08:40→15:30)
[2020-04-16] MEDS: aspirin 81 mg EC Tablet PO (08:40)
[2020-04-16] MEDS: FUROsemide 10 mg/mL SDV 10mL 80 MG IVP ×2 (08:41→17:08)
[2020-04-16] MEDS: lidocaine 5% Patch 1 PATCH TOPICAL ×2 (08:43→22:59)
[2020-04-16] MEDS: ipratropium-albuterol 3 mL Neb INHALATION (09:24)
--- NOTE | 2020-04-16 10:30 | PC.NURSE ---
Patient up ad citlalli ambulating with walker. Patient tolerated activity well.
[2020-04-16 10:59] LABS: Glucose Point of Care 142 mg/dL (70-110)
[2020-04-16 15:31] LABS: Glucose Point of Care 125 mg/dL (70-110)
[2020-04-16 20:41] LABS: Glucose Point of Care 142 mg/dL (70-110)
[2020-04-17] VITALS (61 sets, daily range): BP systolic 148–180; BP diastolic 89–120; PULSE 65–72; RESP 12–28; TEMP 36.4–36.9; O2SAT 66–98
[2020-04-17] MEDS: cloNIDine 0.1 mg Tablet 0.2 MG PO ×3 (01:00→15:47)
[2020-04-17] MEDS: morphine 4 mg/mL SDV 1 mL 2 MG IVP (03:03)
[2020-04-17] MEDS: famotidine 20 mg/2 mL INJ IVP ×2 (03:09→15:48)
[2020-04-17] MEDS: heparin 5,000 unit/mL INJ 1 mL 5000 UNIT SUBCUT ×2 (03:10→15:48)
[2020-04-17 06:46] LABS: Glucose Point of Care 105 mg/dL (70-110)
--- NOTE | 2020-04-17 06:53 | P.PN_ITS ---
Subjective Subjective: Interval history: No acute events overnight. Patient states he is feeling a lot better. Saturating more than 90% on RA. As per the chart he put out around 14.6 L negative since admission and 5 lt urine yesterday. Morning labs not back yet. Vital noted. Denies of any nausea, vomiting, headache, dizziness, chest pain. Vitals/I&O/Wt Last Vital Signs Temp 98.3 F 04/17/20 04:00 Pulse 70 04/17/20 04:00 Resp 20 H 04/17/20 04:00 BP 165/99 04/17/20 04:00 Pulse Ox 97 04/17/20 04:00 04/16/20 04/16/20 04/17/20 14:59 22:59 06:59 Intake Total 720 / 720 770 / 1490 Output Total 2825 / 2825 3975 / 6800 Balance -2105 / -2105 -3205 / -5310 Weight last 48 hrs Weight 159.982 kg Weight 163.293 kg Physical Exam Narrative: EXAM NARRATIVE: General: No acute distress, AO x3 HEENT: PERRLA, pupils bilaterally equal and reactive Chest: Normal vesicular breath sounds, no added sounds, equal good air entry bilaterally CVS: S1-S2 regular, pansystolic murmur at apex 2/6, no tachycardia, no gallops, no rubs Abdomen: Soft, nontender, no organomegaly, bowel sounds present Neuro: No focal deficits, no facial deformity, AO x3, power 5/5 in all limbs Extremities: Bilateral legs 1+ pedal edema up to the knee, mild erythema without localized rise in temperature Urinary Catheter Management^: Melgar: Cath Placed During This Visit: yes Reason for Continuing Indwelling Catheter: Accurate Measurement of Urinary Output in Critically Ill Patients Urinary Catheter Date of Insertion: 04/14/20 Urinary Catheter Time of Insertion: 16:00 Data : 04/15/20 04:05 04/17/20 07:24 Micro: Microbiology 04/14/20 17:50 Urine Culture - Preliminary Urine,Clean Catch Enterococcus species A&P Assessment and plan (1) CHF exacerbation: Status: Acute Qualifiers: Heart failure type: unspecified Qualified Code(s): I50.9 - Heart failure, unspecified (2) Acute and chronic respiratory failure (fbvkj-hz-esrbmxr): Status: Acute Qualifiers: Respiratory failure complication: hypoxia and hypercapnia Qualified Code(s): J96.21 - Acute and chronic respiratory failure with hypoxia; J96.22 - Acute and chronic respiratory failure with hypercapnia (3) Acute kidney injury superimposed on chronic kidney disease: Status: Acute (4) CKD stage 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: Status: Acute (5) Anasarca: Status: Acute (6) Nephrotic range proteinuria: Status: Acute (7) Scrotal swelling: Status: Acute (8) Hypertension: Status: Acute Qualifiers: Hypertension type: unspecified Qualified Code(s): I10 - Essential (primary) hypertension (9) Diabetes: Status: Acute Qualifiers: Diabetes mellitus complication status: with other specified complication Diabetes mellitus longterm insulin use: unspecified supervisor intermediates insulin use status Diabetes mellitus type: other specified (including BRYANNA) Qualified Code(s): E13.69 - Other specified diabetes mellitus with other specified complication (10) Obesity hypoventilation syndrome: Status: Acute (11) Obstructive sleep apnea: Status: Acute (12) Elevated troponin: Status: Acute (13) Other fracture of T7-t8 thoracic vertebra, initial encounter for closed fracture: Status: Acute Additional A&P Information Acute on chronic respiratory failure with both hypoxia and hypercapnia: Combination of acute decompensated diastolic and systolic congestive heart failure along with service obstructive sleep apnea. This is getting more complicated because of nephrotic syndrome. Patient continues to remain noncompliant with trilogy machine. He states he is compliant with his diuretics at home. Last echocardiogram was very technically difficult, with poor data. LV function probably mildly decreased. Myocardial perfusion study (08/11/2019) 1. Small size perfusion abnormality of moderate severity of apical anterior and apical lateral farias with improved tracer uptake on stress images. This is suggestive of attenuation artifact. 2. The left ventricular ejection fraction is severely reduced with a value of 25%. 3. Global hypokinesis more pronounced in apical farias. 4. No coronary ischemia based on the study. On room air today saturating more than 95%. Sleeping comfortably in bed in reclining position. Overall 14.7 L negative. Change IV Lasix to Bumex 2 mg oral twice daily. Continue with hydrochlorothiazide at 25 mg daily. Continue with fluid restriction up to 1500 cc. Strict daily weights. Oxygen supplementation keeping saturation over 90%. CT chest done yesterday negative for any infiltrate. Patient has remained afebrile. Continue to hold off on antibiotics. COVID-19 rapid antigen negative in the ER. For now patient does not require or meet any criteria to get COVID PCR. BiPAP nightly for severe obstructive sleep apnea. Elevated troponins: Baseline less than last time. Most likely because of renal dysfunction. Delta negative in 2 hours. Patient is chest pain-free. KAYLEEN on chronic kidney disease: Nephrotic syndrome: Creatinine stable and still elevated. Patient is making good amount of urine. Most likely because of cardiorenal syndrome on top of diabetic nephropathy. Bas sergio creatinine 2-2.5. Medical reconciliation done for nephrotoxic drugs. Patient does not have any metabolic acidosis or electrolyte abnormality at present. We will continue to monitor. Urine culture growing enterococcus: Similar in the past. Patient does not have any symptoms of dysuria, fever, leukocytosis. For now we will hold off on antibiotics. T6-T8 vertebral fracture: Closed: Most likely related to the trauma he had 2 weeks ago after a fall. Patient does not have any neurological stigmata because of the fall or fracture. Lidocaine patch for pain control, incentive spirometry. Physical therapy. Hypertension: Goal blood pressure less than 140/90 mmHg. At home patient takes carvedilol 25 mg twice daily, clonidine 0.2 p.o. every 8 hours, amlodipine 10 mg. Patient's blood pressure still mildly elevated. Hydrochlorothiazide 25 mg was added yesterday. Case was discussed with patient's outpatient air conditioning unit assembler Dr. Ivey. We will add Imdur 30 mg daily. Monitor blood pressures. Monitor for orthostatic hypotension. Type 2 diabetes mellitus: Last A1c done in November 04.1. Insulin sliding scale at moderate dose before meals and at bedtime. Cardiac low-salt diabetic diet. Long-acting insulin at home dose. Full code. Heparin 5000 every 12. Famotidine for PUD prophylaxis. If patient continues to improve can most likely discharge tomorrow. Attestations Medical Necessity Statement*: Elevated blood pressure, congestive heart failure, KAYLEEN Time Spent in Patient Care: Greater than 35 minutes (>than 50% of time spent in counselling and/or direct pt care on unit) . 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 for [facility] Fwd Diagnoses CHF exacerbation I50.9 Heart failure type: unspecified Acute and chronic respiratory failure (crzxq-vs-hznnfeu) J96.21; J96.22 Respiratory failure complication: hypoxia and hypercapnia Acute kidney injury superimposed on chronic kidney disease N17.9; N18.9 CKD stage 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 E11.22; N18.3 Anasarca R60.1 Nephrotic range proteinuria R80.9 Scrotal swelling N50.89 Hypertension I10 Hypertension type: unspecified Diabetes E13.69 Diabetes mellitus complication status: with other specified complication Diabetes mellitus supervisor intermediates insulin use: unspecified longterm insulin use status Diabetes mellitus type: other specified (including BRYANNA) Obesity hypoventilation syndrome E66.2 Obstructive sleep apnea G47.33 Elevated troponin R79.89 Other fracture of T7-t8 thoracic vertebra, initial encounter for closed fracture S22.806F
[2020-04-17 08:16] LABS: Alanine Aminotransferase 17 U/L (0-41); Albumin Level 2.2 g/dL (3.5-5.2); Alkaline Phosphatase 81 IU/L (40-130); Anion Gap 14.4 (5-19); Aspartate Amino Transferase 13 U/L (0-40); Blood Urea Nitrogen 70 mg/dL (6-20); Calcium 8.7 mg/dL (8.5-10.5); Carbon Dioxide 28 mmol/L (22-29); Chloride 103 mmol/L (98-107); Globulin 3.9 g/dL (1.3-4.6); Glomerular Filtration Rate 19.3 mL/min (90-130); Glucose 111 mg/dL (65-115); Osmolality Calculated 313 mOsm/kg (285-295); Potassium 4.4 mmol/L (3.5-5.1); Sodium 141 mmol/L (136-145); Total Bilirubin 0.3 mg/dL (0.15-1.2); Total Protein 6.1 g/dL (6.6-8.7)
[2020-04-17] MEDS: gabapentin 300 mg Capsule PO ×2 (09:13→17:43)
[2020-04-17] MEDS: hydroCHLOROthiazide 25 mg Tablet PO (09:13)
[2020-04-17] MEDS: TRAMadol 50 mg Tablet PO ×2 (09:13→17:42)
[2020-04-17] MEDS: amlodipine 10 mg Tablet PO (09:13)
[2020-04-17] MEDS: carvedilol 25 mg Tablet PO ×2 (09:13→17:43)
[2020-04-17] MEDS: bisacodyl 5 mg Tablet 10 MG PO (09:13)
[2020-04-17] MEDS: aspirin 81 mg EC Tablet PO (09:13)
[2020-04-17] MEDS: venlafaxine ER (24HR) 75 mg Capsule PO (09:14)
[2020-04-17] MEDS: FUROsemide 10 mg/mL SDV 10mL 80 MG IVP (09:14)
[2020-04-17] MEDS: lidocaine 5% Patch 1 PATCH TOPICAL ×2 (09:16→21:47)
[2020-04-17 11:19] LABS: Glucose Point of Care 143 mg/dL (70-110)
--- NOTE | 2020-04-17 12:14 | PC.NURSE ---
Desaturation of spO2 to 81% per RT Pt has been up with his walker in room, RT checked his spo2 and he is on 81% on room air. applied 2 L/min NC and he is up to 94%-95%. Pt stated he does not want to walk with oxygen tank. He stated he is not using oxygen as well as his cpap machine. Re-educated pt on importance of continuos oxygen use. he stated it is not needed to use oxygen because he does not want to walk w/o oxygen and he stated he is full of fluids. Informed pt on fluid restriction per order and he is aware of it.
[2020-04-17] MEDS: isosorbide mononitrate ER 30 mg Tablet PO (15:46)
[2020-04-17 16:17] LABS: Glucose Point of Care 134 mg/dL (70-110)
--- NOTE | 2020-04-17 17:00 | PC.NURSE ---
Education reinforcement on fluid restriction with at bedside in room and was asking regarding strict intake on sodas and fluid. drinks soda at home and she stated pt will also drink her soda. Discuss to her to remind the pt on keeping an eye on his fluid intake and weight at home.
[2020-04-17] MEDS: bumetanide 1 mg Tablet 2 MG PO (17:43)
[2020-04-17 21:17] LABS: Glucose Point of Care 184 mg/dL (70-110)
[2020-04-18] VITALS (7 sets, daily range): BP systolic 146–152; BP diastolic 85–93; PULSE 65–71; RESP 16–20; TEMP 36.4–37.1; O2SAT 88–96
[2020-04-18] MEDS: cloNIDine 0.1 mg Tablet 0.2 MG PO ×2 (00:56→08:41)
[2020-04-18] MEDS: heparin 5,000 unit/mL INJ 1 mL 5000 UNIT SUBCUT (05:01)
[2020-04-18] MEDS: famotidine 20 mg/2 mL INJ IVP (05:01)
[2020-04-18] MEDS: TRAMadol 50 mg Tablet PO (05:02)
[2020-04-18 05:51] LABS: Alanine Aminotransferase 17 U/L (0-41); Albumin Level 2.5 g/dL (3.5-5.2); Alkaline Phosphatase 78 IU/L (40-130); Anion Gap 13.2 (5-19); Aspartate Amino Transferase 13 U/L (0-40); Calcium 8.2 mg/dL (8.5-10.5); Carbon Dioxide 31 mmol/L (22-29); Chloride 102 mmol/L (98-107); Globulin 3.6 g/dL (1.3-4.6); Glomerular Filtration Rate 21.4 mL/min (90-130); Glucose 151 mg/dL (65-115); Osmolality Calculated 321 mOsm/kg (285-295); Potassium 4.2 mmol/L (3.5-5.1); Sodium 142 mmol/L (136-145); Total Bilirubin 0.2 mg/dL (0.15-1.2); Total Protein 6.1 g/dL (6.6-8.7)
[2020-04-18 06:04] LABS: Blood Urea Nitrogen 81 mg/dL (6-20)
[2020-04-18 06:34] LABS: Glucose Point of Care 128 mg/dL (70-110)
[2020-04-18] MEDS: gabapentin 300 mg Capsule PO (08:41)
[2020-04-18] MEDS: venlafaxine ER (24HR) 37.5 mg Capsule 75 MG PO (08:41)
[2020-04-18] MEDS: carvedilol 25 mg Tablet PO (08:41)
[2020-04-18] MEDS: isosorbide mononitrate ER 30 mg Tablet PO (08:42)
[2020-04-18] MEDS: aspirin 81 mg EC Tablet PO (08:42)
[2020-04-18] MEDS: bumetanide 1 mg Tablet 2 MG PO (08:42)
[2020-04-18] MEDS: hydroCHLOROthiazide 25 mg Tablet PO (08:42)
[2020-04-18] MEDS: amlodipine 10 mg Tablet PO (08:42)
--- NOTE | 2020-04-18 08:42 | PM.DCS ---
Discharge Providers Date of Admission: 04/14/20 13:14 Date of Discharge: April 18, 2020 Attending Provider at Admission: Edil Bonner MD Attending Provider at Discharge: Edil Bonner MD Primary Care Provider: Sulma Wetzel MD Diagnoses at Discharge Discharge Diagnosis (1) CHF exacerbation: Status: Acute Qualifiers: Heart failure type: unspecified Qualified Code(s): I50.9 - Heart failure, unspecified (2) Acute and chronic respiratory failure (mosib-tw-[id number]): Status: Acute Qualifiers: Respiratory failure complication: hypoxia and hypercapnia Qualified Code(s): J96.21 - Acute and chronic respiratory failure with hypoxia; J96.22 - Acute and chronic respiratory failure with hypercapnia (3) Acute kidney injury superimposed on chronic kidney disease: Status: Acute (4) CKD stage 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: Status: Acute (5) Anasarca: Status: Acute (6) Nephrotic range proteinuria: Status: Acute (7) Scrotal swelling: Status: Acute (8) Hypertension: Status: Acute Qualifiers: Hypertension type: unspecified Qualified Code(s): I10 - Essential (primary) hypertension (9) Diabetes: Status: Acute Qualifiers: Diabetes mellitus complication status: with other specified complication Diabetes mellitus termite control technician insulin use: 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 Diabetes mellitus type: other specified (including BRYANNA) Qualified Code(s): E13.69 - Other specified diabetes mellitus with other specified complication (10) Obesity hypoventilation syndrome: Status: Acute (11) Obstructive sleep apnea: Status: Acute (12) Elevated troponin: Status: Acute (13) Other fracture of T7-t8 thoracic vertebra, initial encounter for closed fracture: Status: Acute Reason for Visit Reason for Visit: cp/rib pain/sob Hospital Course Discharge Summary: Akil Velasco is a 50 year old male PMHx of hypertension x 15-20 years, uncontrolled diabetes mellitus x 15 years, dyslipidemia, GERD, depression, CKD stage 3, h/o bilateral partial nephrectomy for cancer, diabetic peripheral neuropathy, nephrotic syndrome, morbid obesity, OHS and very severe obstructive sleep apnea who has had multiple admissions in last couple of months because of CHF exacerbation. He is well-known to me from previous admissions. On examination he is looking a lot better than before. He states he was in his usual health till around 2 weeks ago. He states before that he is actually doing very well and his weight was down to 300 pounds. 2 weeks ago he was walking in his backyard when he slipped and fell and hurt his ribs since then he has been having chest pain. He states he has been gaining weight and and building a fluid in his body with difficulty in breathing for last 3 days. He complains of mild cough but no expectoration, fever, flulike symptoms, myalgia, recent exposure to any known COVID-19 patient's. He states he is compliant to his medications at present takes Bumex 2 times a day. He is not compliant to Trelegy as he thinks he is not able to breathe when he is on the machine. He complains of occasional diarrhea but denies having any abdominal pain, dysuria, headache, dizziness, palpitation, chest pain. His lab in the ER showed a white count of 8.1, hemoglobin of 12.4, INR of 1.05, ABG with a pH of 7.28, CO2 of 56.3, PO2 of 97.9, sodium of 139, potassium 4.7, BUN of 69, creatinine of 3.5, lactate of 0.8, baseline troponin of 129 with 2-hour delta of -7, proBNP of 7704 which was 1300, 4 months ago. He was admitted to the hospital and started on IV diuresis. He responded well to the treatment and was diuresed up to 18 L. On admission his blood pressure was found to be on the higher side. His antihypertensives were adjusted. His case was discussed with senior statistician and his outpatient barrel washer machine. It is advised that patient should be on hydrochlorothiazide going forward because of nephrotic syndrome which will help both with his heart failure and anasarca. Imdur has been added to his medication list for better blood pressure control after discussion with his outpatient barrel washer machine. On admission his creatinine was found to be on a higher side than his baseline. He responded well to the treatment and his creatinine was downtrending and blood pressures are better controlled. Because of back pain imaging was done which is consistent with development of left anterior lateral T6-T8 fracture without displacement. He was seen by physical therapy and started on home exercise program. He worked well with physical therapy. Home O2 evaluation has been done and oxygen has been provided to him as required. He is been discharged hemodynamically stable condition advised to follow-up with his primary care provider within next 7 to 10 days with a follow-up CMP and his barrel washer machine in next 2 weeks. Physical Exam Narrative: EXAM NARRATIVE: General: No acute distress, AO x3 HEENT: PERRLA, pupils bilaterally equal and reactive Chest: Normal vesicular breath sounds, no added sounds, equal good air entry bilaterally CVS: S1-S2 regular, pansystolic murmur at apex 2/6, no tachycardia, no gallops, no rubs Abdomen: Soft, nontender, no organomegaly, bowel sounds present Neuro: No focal deficits, no facial deformity, AO x3, power 5/5 in all limbs Extremities: Bilateral legs 1+ pedal edema up to the knee, mild erythema without localized rise in temperature, improving Urinary Catheter Management^: Melgar: Cath Placed During This Visit: yes Reason for Continuing Indwelling Catheter: Acute Urinary Retention or Obstruction Urinary Catheter Date of Insertion: 04/14/20 Urinary Catheter Time of Insertion: 16:00 Discharge Data Data Completed and Pending: Completed Studies During Hospitalization Category Date Time Status CT chest wo con 7 1250 Urgent Cat Scan 04/14/20 14:46 Completed XR chest 1V jonas ble [id number] Stat Exams 04/14/20 12:16 Completed Labs from last 24 hours 04/18/20 04/18/20 04/17/20 06:24 05:11 20:29 Sodium 142 Potassium 4.2 Chloride 102 Carbon Dioxide 31 H Anion Gap 13.2 BUN 81 H Creatinine 3.1 H GFR Calculation 21.4 L Glucose 151 H POC Glucose 128 184 Calculated Osmolal ity 321 H Calcium 8.2 L Total Bilirubin 0.2 AST 13 ALT 17 Alkaline Phosphata se 78 Total Protein 6.1 L Albumin 2.5 L Globulin 3.6 04/17/20 04/17/20 15:53 10:54 Sodium Potassium Chloride Carbon Dioxide Anion Gap BUN Creatinine GFR Calculation Glucose POC Glucose 134 143 Calculated Osmolal ity Calcium Total Bilirubin AST ALT Alkaline Phosphata se Total Protein Albumin Globulin Vitals: Last Vital Signs Temp 97.6 F 04/18/20 07:13 Pulse 65 04/18/20 07:13 Resp 16 04/18/20 07:13 BP 146/85 04/18/20 07:13 Pulse Ox 96 04/18/20 07:13 Discharge Plan Discharge Patient Disposition: Home Condition: Stable Prescriptions: New tramadol 50 mg Tablet 50 mg PO Q6H PRN (Reason: Moderate Pain) Qty: 10 RF: 0 hydrochlorothiazide 25 mg Tablet 25 mg PO DAILY Qty: 30 RF: 0 lidocaine [Lidoderm] 5 % Adhesive Patch,Medicated 1 patch topical O12O12 Qty: 10 RF: 0 isosorbide mononitrate 30 mg Tablet Extended Release 24 Hr 30 mg PO DAILY Qty: 30 RF: 0 Continued aspirin [Aspir-81] 81 mg tablet,delayed release (DR/EC) 81 mg PO DAILY RF: 0 gabapentin 600 mg tablet See Rx Instructions .ROUTE .COMPLEX PRN (Reason: Pain) RF: 0 clonidine HCl 0.2 mg tablet 0.2 mg PO TID RF: 0 Tresiba FlexTouch U-200 200 unit/mL (3 mL) insulin pen 20 unit SUBCUT DAILY RF: 0 amlodipine 10 mg tablet 10 mg PO DAILY Qty: 90 RF: 2 carvedilol 25 mg tablet 25 mg PO BIDPC Qty: 60 RF: 0 venlafaxine 75 mg capsule,extended release 24hr 75 mg PO DAILY RF: 0 Apidra U-100 Insulin 100 unit/mL Solution 16 unit SUBCUT TID RF: 0 Changed bumetanide 2 mg tablet 2 mg PO BID Qty: 30 RF: 0 Discharge Orders: Discharge Order (Routine); Ordered 04/18/20 Ordered By: Edil Bonner Referrals: Sulma Wetzel MD [Primary Care Provider] - 7-10 days Rosie Ivey MD [Physician] - 2 weeks Discharge Diet: Cardiac and Low Salt Discharge Activity: Resume usual activity, Use walker/crutches as instructed and As per PT/OT instructions Activity Restrictions/Additional Instructions: Please do exercises as described by physical therapy. Imdur has been added to your medication list for high blood pressure. Please follow-up with your primary care provider and barrel washer machine on set appointments. Please repeat CMP in 7 to 10 days. Discharge Attestations Time Spent in Discharge Care*: greater than 30 min Specific Discharge Activities: Specific discharge activities: educating patient, discussing with pcp/other providers, discussing with business case analyst/social workers/dc planners, documenting/other paperwork and evaluating patient/reviewing data Status at Discharge: Cognitive status at discharge: cognitively intact, Behavioral status at discharge: cooperative, Functional status at discharge: uses cane/walker Overall status at discharge: patient is progressing back to baseline Quality Metrics Clinical Quality Measures During this hospital stay, did patient experience: None Coding Level of Care Code Acute Haunted History Tour Guide for [facility] Fwd Diagnoses CHF exacerbation I50.9 Heart failure type: unspecified Acute and chronic respiratory failure (pxjya-lv-pmtsqen) J96.21; J96.22 Respiratory failure complication: hypoxia and hypercapnia Acute kidney injury superimposed on chronic kidney disease N17.9; N18.9 CKD stage 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 E11.22; N18.3 Anasarca R60.1 Nephrotic range proteinuria R80.9 Scrotal swelling N50.89 Hypertension I10 Hypertension type: unspecified Diabetes E13.69 Diabetes mellitus complication status: with other specified complication Diabetes mellitus termite control technician insulin use: unspecified residential insulin use status Diabetes mellitus type: other specified (including BRYANNA) Obesity hypoventilation syndrome E66.2 Obstructive sleep apnea G47.33 Elevated troponin R79.89 Other fracture of T7-t8 thoracic vertebra, initial encounter for closed fracture S22.443I
[2020-04-18] MEDS: lidocaine 5% Patch 1 PATCH TOPICAL (08:43)
--- NOTE | 2020-04-18 10:00 | PC.NURSE ---
Case t in room Pt stated that his is coming to pick him up. Informed pt that he qualifies for oxygen and he told me and case mgt that he has oxygen and portable oxygen at home. Informed pt to let his know that she has to bring oxygen from home. He talked to his on phone. Case t in room as well.
--- NOTE | 2020-04-18 10:29 | PC.NURSE ---
Called [facility] pharmacy Called new Rx to [facility] pharmacy as his choice.
--- NOTE | 2020-04-18 11:00 | PC.NURSE ---
Discharge to home with caregiver Discuss to pt on new rx meds, chf stoplight, fall prevention and follow-up appointment. Discharge papers given. Ushered pt via wheelchair with oxygen at 2 L/min.
[2020-04-18 11:32] LABS: Glucose Point of Care 119 mg/dL (70-110)
== END 2020-04-18 12:03 | disposition home or self-care (01) | DRG 291 ==
LOC: ER 12:09 → CSU 15:13
PROVIDERS: Emergency Medicine; Admitting Provider Student in an Organized Health Care Education/Training Program; PCP Internal Medicine; Visit Provider Student in an Organized Health Care Education/Training Program
DX: I13.0 Hypertensive heart and chronic kidney disease with heart failure and stage 1 through stage 4 chronic kidney disease, or unspecified chronic kidney disease (principal); I50.43 Acute on chronic combined systolic (congestive) and diastolic (congestive) heart failure; J96.21 Acute and chronic respiratory failure with hypoxia; J96.22 Acute and chronic respiratory failure with hypercapnia; S22.069A Unspecified fracture of T7-T8 vertebra, initial encounter for closed fracture; E66.2 Morbid (severe) obesity with alveolar hypoventilation; Z68.42 Body mass index [BMI] 45.0-49.9, adult; N17.9 Acute kidney failure, unspecified; N18.3 Chronic kidney disease, stage 3 (moderate); E11.22 Type 2 diabetes mellitus with diabetic chronic kidney disease; E78.5 Hyperlipidemia, unspecified; K21.9 Gastro-esophageal reflux disease without esophagitis; F32.9 Major depressive disorder, single episode, unspecified; Z85.528 Personal history of other malignant neoplasm of kidney; E11.65 Type 2 diabetes mellitus with hyperglycemia; E11.42 Type 2 diabetes mellitus with diabetic polyneuropathy; E11.21 Type 2 diabetes mellitus with diabetic nephropathy; N50.89 Other specified disorders of the male genital organs; W18.30XA Fall on same level, unspecified, initial encounter; Z79.4 Long term (current) use of insulin; Z79.82 Long term (current) use of aspirin
CPT/HCPCS: 12345; 36415; 36416; 36600; 51702; 71045; 71250; 80053; 81001; 82803; 82962; 83540; 83550; 83605; 83735; 83880; 84100; 84145; 84484; 85025; 85610; 87077; 87086; 87186; 87426; 93005; 94640; 94660; 94664; 96372; 96375; 97161; 97530; 99284; J0360; J1644; J1815; J1940; J2270; J3490

== ENCOUNTER 2020-05-05 12:20 | Outpatient (CLI) | payer MEDICAID, SELFPAY ==
--- NOTE | 2020-05-05 12:35 | US_ITS ---
WS: [id number] RENAL ULTRASOUND Bladder ultrasound HISTORY: CHRONIC KIDNEY DZ-STAGE 3 COMPARISON: 08/11/2019 TECHNIQUE: 2-D and color Doppler imaging of the kidney submitted. Right kidney: 12.2 cm x 5.6 cm x 6.4 cm. Normal echogenicity with no hydronephrosis or mass. Left kidney: 12.2 cm x 5.3 cm x 6.8 cm. Normal size kidney. Focal scarring in the upper pole cortex. Normal echogenicity. Indeterminate for p ossible complex cyst from the posterior superior LEFT kidney with a maximum diameter of 2.4 cm. This area is poorly visualized due to body habitus. Aorta: Normal. Urinary Bladder: Well-distended bladder. No intraluminal filling defect. US/US renal BI* [id number] IMPRESSION: 1. No hydronephrosis. 2. Cortical thinning upper pole LEFT kidney and possible complex cyst from the posterior cortex. 3. Negative urinary bladder.
== END 2020-05-05 12:21 | disposition home or self-care (01) ==
LOC: RAD 12:21
PROVIDERS: PCP Internal Medicine; Visit Provider Internal Medicine Nephrology
DX: N18.30 Chronic kidney disease, stage 3 unspecified (principal)
CPT/HCPCS: 76770

== ENCOUNTER 2020-05-13 09:59 | Outpatient (CLI) | payer MEDICAID, SELFPAY ==
--- NOTE | 2020-05-13 10:04 | CT_ITS ---
WS: [id number] CT ABDOMEN TECHNIQUE: Noncontrast CT of the abdomen with coronal and sagittal reformatted images. CLINICAL INFORMATION: RENAL MASS, RENAL INSUFFIECIENCY COMPARISON: October 04, 2019 and ultrasound May 05, 2020 DLP: 918.[address] scans at [facility] use at least one of these dose optimization techniques: automat ed exposure control; mA and/or kV adjustment per patient size (includes targeted exams where dose is matched to clinical indication); or iterative reconstruction. FINDINGS: Noncontrast liver is normal in appearance. Hepatomegaly. Normal spleen. Normal GE junction. Normal ga llbladder. Lung bases are well aerated. Normal noncontrast pancreas. Adrenal glands are normal. No hy dronephrosis in either kidney. Lobulation upper pole left kidney medially with suggestion of soft tis dee lesion measuring 2.7 x 2.6 CM. This is not well evaluated without contrast. Normal caliber abdominal aorta. A few shoddy periaortic lymph nodes. Fat-containing umbilical hernia. Mild compression superior endplate L1 with approximately 20% compression. This is new since September. Minimal retropulsion of the posterior superior cortex. No high-grade central canal narrowing. CT/CT abdomen wo con [id number] IMPRESSION: 1. Suggestion of a lobulated soft tissue lesion upper pole left kidney althoug h not definitively evaluated without contrast. This does not appear cystic. Lob ulated area measures 2.6 x 2.7 cm. This can be further evaluated with MRI or fo llowed up with ultrasound in 3-6 months 2. No hydronephrosis in either kidney. 3. Hepatomegaly. 4. New compression fracture superior endplate L1 measuring approximately 20% w ith minimal retropulsion of the posterior superior cortex. No high-grade centra l canal narrowing. This can be followed up with MRI.
== END 2020-05-13 10:00 | disposition home or self-care (01) ==
LOC: RADWPI 10:01
PROVIDERS: PCP Internal Medicine; Visit Provider Registered Nurse
DX: N28.89 Other specified disorders of kidney and ureter (principal); Z85.528 Personal history of other malignant neoplasm of kidney; R16.0 Hepatomegaly, not elsewhere classified
CPT/HCPCS: 74150

== ENCOUNTER 2020-05-28 08:18 | Outpatient (CLI) | payer MEDICAID, SELFPAY ==
--- NOTE | 2020-05-28 08:24 | XR_ITS ---
WS: [id number] Exam: XR chest 2V* [id number] Date/Time of Exam: 05/28/2020 8:24 AM Reason For Exam: RENAL CELL CA Comparison 04/14/2020. There is cardiac enlargement unchanged. Pulmonary vascularity is mildly increased. No infiltrates or pleural effusions. Regional bony elements are intact. The mediastinum is not widened. XR/XR chest 2V* [id number] IMPRESSION: 1. Cardiac enlargement with mildly increased pulmonary vascularity. 2. No acute process.
[2020-05-28 09:02] LABS: Basophils # 0.1 10^3/uL (0.0-0.1); Basophils % 0.6 %; Eosinophils # 0.6 10^3/uL (0.0-0.8); Eosinophils % 6.9 %; Hematocrit 38.3 % (42.0-52.0); Hemoglobin 11.9 g/dL (11.7-16.6); Lymphocytes # 1.5 10^3/uL (0.8-4.8); Lymphocytes % 19.2 %; Mean Corpuscular HGB Conc 31.1 g/dL (30.0-36.0); Mean Corpuscular Volume 86.8 fL (80-94); Mean Platelet Volume 10.2 fL (7.4-10.4); Monocytes # 0.6 10^3/uL (0.2-0.9); Monocytes % 7.2 %; Neutrophils # 5.25 10^3/uL (1.8-7.7); Neutrophils % 65.6 %; Nucleated Red Blood Cells % 0 %; Platelet Count 226 10^3/cmm (130-400); Red Blood Count 4.41 10^6/uL (4.1-5.3)
[2020-05-28 09:33] LABS: Alanine Aminotransferase 18 U/L (0-41); Albumin Level 3.1 g/dL (3.5-5.2); Alkaline Phosphatase 94 IU/L (40-130); Anion Gap 13.6 (5-19); Aspartate Amino Transferase 15 U/L (0-40); Blood Urea Nitrogen 61 mg/dL (6-20); Carbon Dioxide 26 mmol/L (22-29); Chloride 105 mmol/L (98-107); Globulin 3.5 g/dL (1.3-4.6); Glomerular Filtration Rate 24.1 mL/min (90-130); Glucose 189 mg/dL (65-115); Osmolality Calculated 312 mOsm/kg (285-295); Potassium 4.6 mmol/L (3.5-5.1); Sodium 140 mmol/L (136-145); Total Bilirubin 0.2 mg/dL (0.15-1.2); Total Protein 6.6 g/dL (6.6-8.7)
== END 2020-05-28 08:19 | disposition home or self-care (01) ==
LOC: RAD 08:21
PROVIDERS: PCP Internal Medicine; Visit Provider Urology
DX: C64.9 Malignant neoplasm of unspecified kidney, except renal pelvis (principal); I51.7 Cardiomegaly
CPT/HCPCS: 36415; 71046; 80053; 81003; 85025

== ENCOUNTER → 2020-06-28 09:19 | Outpatient (BNVA) | payer MEDICAID, SELFPAY | PROVIDERS: PCP Internal Medicine; Visit Provider Urology | DX: C64.9 Malignant neoplasm of unspecified kidney, except renal pelvis (principal) | CPT/HCPCS: 81003 ==

== ENCOUNTER → 2020-08-14 12:23 | Outpatient (BNVA) | payer MEDICAID, SELFPAY | PROVIDERS: PCP Internal Medicine; Visit Provider Emergency Medicine | DX: Z20.828 Contact with and (suspected) exposure to other viral communicable diseases (principal) | CPT/HCPCS: 87635 ==

== ENCOUNTER 2020-08-19 02:05 | Inpatient (IN) | payer MEDICAID, SELFPAY ==
[2020-08-19] VITALS (23 sets, daily range): BP systolic 142–213; BP diastolic 85–131; PULSE 58–91; RESP 12–24; TEMP 36.6; O2SAT 93–98; BMI 36.3
--- NOTE | 2020-08-19 02:11 | ECG_ITS ---
[facility] Test Date: 2020-08-19 Pat Name: Akil Velasco Department: Room: Gender: Male Floor Person: : 1970 Requested By: Dilip Banda Order Number: [id number] Reading MD: MATILDE BOOKER Measurements Intervals [place] Rate: 92 P: 33 MS: 175 QRS: 73 QRSD: 104 T: 51 QT: 372 QTc: 460 Interpretive Statements SINUS RHYTHM WITH OCCASIONAL SUPRAVENTRICULAR PREMATURE COMPLEXES POSSIBLE LEFT ATRIAL ENLARGEMENT [-0.1mV P WAVE IN V1/V2] MODERATE ST DEPRESSION [0.05+ mV ST DEPRESSION] WARNING: DATA QUALITY MAY AFFECT INTERPRETATION Compared to ECG 04/14/2020 13:41:18 ST (T wave) deviation now present Electronically Signed On 08-19-2020 18:01:50 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
--- NOTE | 2020-08-19 02:11 | XR_ITS ---
WS: [id number] Portable AP supine chest, 08/19/2020 Clinical Data: sob Comparison: PA and lateral chest, 05/28/2020. Findings: There are dense bilateral patchy pulmonary opacities consistent with acute pneumonia. The h eart is enlarged. The endotracheal tube is above the adrianna. The nasogastric tube and at the distal e sophagus at approximately the gastroesophageal junction. Monitor leads are on the chest wall. XR/XR chest 1V portable [id number] Impression: 1. Endotracheal tube above the adrianna. 2. Nasogastric tube in the distal esophagus. 3. Dense pulmonary opacities consistent with acute pneumonia. 4. Cardiomegaly.
--- NOTE | 2020-08-19 02:13 | W.ED.SOB ---
HPI - SOB/Dyspnea General: Chief Complaint: Cardiac Arrest/CPR Stated Complaint: resp distress Time Seen by Provider: 08/19/20 02:10 Source: EMS Mode of arrival: EMS Limitations: altered mental status History of Present Illness: HPI Narrative: 50-year-old male who recently tested positive for Covid 4 days ago. He called EMS tonight for shortness of breath. State when they arrived he was complaining shortness of breath and then become unresponsive. He states that in route here he had 2 to 3 minutes of a cardiac arrest. They never had an IV did CPR and he had return of spontaneous circulation. Patient here is unresponsive and has agonal breathing. He does have distal pulses intact. Unable to get any history from him. 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 No recurrence for long-term follow-up with some suspicion on CT scan April 2020. Type 2 diabetes mellitus with diabetic polyneuropathy Surgical History H/O partial nephrectomy bilateral Hx of lymph node excision Family History Father Diabetes Mother Diabetes Grandfather Diabetes Cancer Other Hyperlipidemia Social History Smoking and tobacco status: never smoked Alcohol intake: current Alcohol intake frequency: holidays/special occasions only Lives independently: Yes Household members: spouse Housing: House Marital status: Current occupational status: retired History of recent travel: No Current gender identity: Male Physical Exam Const: COMMON NORMALS: negative for patient oriented x3 EXAM LIMITATIONS: altered mental status GENERAL APPEARANCE: in distress and ill appearing OTHER: Unresponsive respiratory distress HENMT: COMMON NORMALS: normocephalic and atraumatic HEAD & SCALP: normocephalic and atraumatic Eye: COMMON NORMALS: Equal, round and reactive pupils present and EOMs intact bilaterally PUPIL: Yes Equal, round and reactive pupils present Neck/C-Spine: COMMON NORMALS: full ROM and supple Chest: COMMONS NORMALS: normal inspection of the chest and normal palpation of entire chest wall Resp: COMMON NORMALS: No retractions EFFORT & INSPECTION: Yes respiratory distress and Yes decreased respiratory effort OTHER: [id number] ventilated agonal respirations Cardio: COMMON NORMALS: regular rate, regular rhythm and No murmurs present (Cardio) RATE: regular rate RHYTHM: regular rhythm GI: COMMON NORMALS: Normal to inspection, nondistended, normoactive bowel sounds present, Soft to palpation, non-tender and no masses PALPATION: Yes Soft to palpation Extremity: COMMON NORMALS: normal to inspection and full ROM Neuro: COMMON NORMALS: negative for patient oriented x3 Psych: COMMON NORMALS: cooperative; negative for mental status grossly normal and negative for Normal thought process present THOUGHT PROCESS: abnormal Skin: COMMON NORMALS: no rashes or lesions noted and no wounds GENERAL SKIN EXAM: no rashes or lesions noted Procedures Intubation sedative: Etomidate Mg Given: 20 paralytic: Succinylcholine Mg Given: 200 Laryngoscope: Annamarie ET Tube Size: 8 Tube Secured Depth (cm): 24 Tube Secured Location: teeth Tube Placement Confirmation: visualized tube passing through cords, equal breath sounds bilaterally, no breath sounds over epigastrium and confirmation by capnometry Patient Tolerated Procedure: well Intubation Complications: none Course Vital Signs: Vital signs: Vital Signs Temperature 97.9 F 08/19/20 02:08 Pulse Rate 91 08/19/20 02:49 Respiratory Rate 17 08/19/20 02:49 Blood Pressure 175/131 08/19/20 02:49 Pulse Oximetry 93 08/19/20 02:49 MDM - SOB/Dyspnea MDM Narrative: Medical decision making narrative: Akil presents here with Covid pneumonia and respiratory failure. Patient was intubated here and is doing well on the vent. He does have a history congestive heart failure and has an elevated BNP and patient given Lasix along with Decadron in the ER. I spoke to the hospitalist and will admit at this time. Lab Data: Labs: Lab Results 08/19/20 08/19/20 08/19/20 Range/Units 02:16 02:16 02:16 WBC 14.1 H (4.0-10.0) 10^3/ uL RBC 4.77 (4.1-5.3) 10^6/u L Hgb 12.9 (11.7-16.6) g/dL Hct 42.2 (42.0-52.0) % MCV 88.5 (80-94) fL MCH 27.0 L (28.0-34.0) pg MCHC 30.6 (30.0-36.0) g/dL RDW 14.0 (12.1-15.1) % Plt Count 302 (130-400) 10^3/c mm MPV 10.1 (7.4-10.4) fL Neut % (Auto) 80.7 % Lymph % (Auto) 10.2 % Dewey % (Auto) 6.8 % Eos % (Auto) 0.1 % Baso % (Auto) 0.1 % Neut # (Auto) 11.40 H (1.8-7.7) 10^3/u L Lymph # (Auto) 1.4 (0.8-4.8) 10^3/u L Dewey # (Auto) 1.0 H (0.2-0.9) 10^3/u L Eos # (Auto) 0.0 (0.0-0.8) 10^3/u L Baso # (Auto) 0.0 (0.0-0.1) 10^3/u L Nucleated RBC % (a uto) 0.9 % Nucleated RBCs # 0.1 /100WBC PT 15.90 H (12.1-14.9) SECO NDS INR 1.23 H (0.8-1.2) Fibrinogen 763 H (174-498) mg/dL D-Dimer 1.30 H (0-0.59) ug/mIFE U Specimen Type Sample Site ABG pH (7.35-7.45) ABG pCO2 (35-45) mmHg ABG pO2 (80.0-100.0) mmH g ABG HCO3 (22-26) mmol/L ABG Base Excess (-2.0-2.0) mmol/ L Jesus Test Hematocrit (42-52) % O2 Delivery Device O2 Liters/Min % FiO2 % Tidal Volume PEEP cmH20 Wet Trimmer ID Sodium 137 (136-145) mmol/L Potassium 5.3 H (3.5-5.1) mmol/L Chloride 102 (98-107) mmol/L Carbon Dioxide 19 L (22-29) mmol/L Anion Gap 21.3 H (5-19) BUN 105 H* D (6-20) mg/dL Creatinine 3.8 H (0.7-1.2) mg/dL GFR Calculation 16.9 L (90-130) mL/min Glucose 201 H (65-115) mg/dL Calculated Osmolal ity 323 H (285-295) mOsm/k g Lactic Acid (0.5-2.2) mmol/L Calcium 8.6 (8.5-10.5) mg/dL Ferritin 291 (30-400) ng/mL Total Bilirubin 0.2 (0.15-1.2) mg/dL AST 31 (0-40) U/L ALT 34 (0-41) U/L Alkaline Phosphata se 97 (40-130) IU/L C-Reactive Protein 50.7 H (0.0-4.9) mg/L NT-Pro-B Natriuret Pep 75653 H (0-125) pg/mL Total Protein 7.3 (6.6-8.7) g/dL Albumin 2.9 L (3.5-5.2) g/dL Globulin 4.4 (1.3-4.6) g/dL Urine Color (Yellow) Urine Appearance (CLEAR) Urine pH (5-7) Ur Specific Gravit y (1.005-1.030) Urine Protein (Negative) Urine Glucose (UA) (Normal) Urine Ketones (Negative) Urine Blood (Negative) Urine Nitrate (Negative) Urine Bilirubin (Negative) Urine Urobilinogen (Negative) mg/dL Ur Leukocyte Leisa ase (Negative) Urine RBC (0-2) /hpf Urine WBC (0-5) /hpf Ur Squamous Epith Cells (0-5) /hpf Amorphous Sediment Urine Bacteria (NONE) /hpf RBC Casts /lpf 08/19/20 08/19/20 08/19/20 Range/Units 02:17 02:21 02:39 WBC (4.0-10.0) 10^3/ uL RBC (4.1-5.3) 10^6/u L Hgb (11.7-16.6) g/dL Hct (42.0-52.0) % MCV (80-94) fL MCH (28.0-34.0) pg MCHC (30.0-36.0) g/dL RDW (12.1-15.1) % Plt Count (130-400) 10^3/c mm MPV (7.4-10.4) fL Neut % (Auto) % Lymph % (Auto) % Dewey % (Auto) % Eos % (Auto) % Baso % (Auto) % Neut # (Auto) (1.8-7.7) 10^3/u L Lymph # (Auto) (0.8-4.8) 10^3/u L Dewey # (Auto) (0.2-0.9) 10^3/u L Eos # (Auto) (0.0-0.8) 10^3/u L Baso # (Auto) (0.0-0.1) 10^3/u L Nucleated RBC % (a uto) % Nucleated RBCs # /100WBC PT (12.1-14.9) SECO NDS INR (0.8-1.2) Fibrinogen (174-498) mg/dL D-Dimer (0-0.59) ug/mIFE U Specimen Type Arterial Sample Site Radial, right ABG pH 7.10 L* (7.35-7.45) ABG pCO2 63.1 H* (35-45) mmHg ABG pO2 56.7 L (80.0-100.0) mmH g ABG HCO3 19.6 L (22-26) mmol/L ABG Base Excess -10.7 L (-2.0-2.0) mmol/ L Jesus Test Pos Hematocrit 40.3 L (42-52) % O2 Delivery Device Vent O2 Liters/Min 14.0 % FiO2 100.0 % Tidal Volume 0.55 PEEP 10.0 cmH20 Wet Trimmer ID Jlg Sodium (136-145) mmol/L Potassium (3.5-5.1) mmol/L Chloride (98-107) mmol/L Carbon Dioxide (22-29) mmol/L Anion Gap (5-19) BUN (6-20) mg/dL Creatinine (0.7-1.2) mg/dL GFR Calculation (90-130) mL/min Glucose (65-115) mg/dL Calculated Osmolal ity (285-295) mOsm/k g Lactic Acid 2.3 H (0.5-2.2) mmol/L Calcium (8.5-10.5) mg/dL Ferritin (30-400) ng/mL Total Bilirubin (0.15-1.2) mg/dL AST (0-40) U/L ALT (0-41) U/L Alkaline Phosphata se (40-130) IU/L C-Reactive Protein (0.0-4.9) mg/L NT-Pro-B Natriuret Pep (0-125) pg/mL Total Protein (6.6-8.7) g/dL Albumin (3.5-5.2) g/dL Globulin (1.3-4.6) g/dL Urine Color Yellow (Yellow) Urine Appearance Cloudy A (CLEAR) Urine pH 5.0 (5-7) Ur Specific Gravit y 1.020 (1.005-1.030) Urine Protein 3+ H (Negative) Urine Glucose (UA) 2+ (Normal) Urine Ketones Negative (Negative) Urine Blood 2+ H (Negative) Urine Nitrate Negative (Negative) Urine Bilirubin Neg (Negative) Urine Urobilinogen Norm (Negative) mg/dL Ur Leukocyte Leisa ase Negative (Negative) Urine RBC 0-4 H (0-2) /hpf Urine WBC 5-10 H (0-5) /hpf Ur Squamous Epith Cells 0-4 H (0-5) /hpf Amorphous Sediment Not Reportable Urine Bacteria 1+ H (NONE) /hpf RBC Casts 5-10 /lpf Critical Care Time Critical Care Time: Critical Care Time: Yes Total Critical Care Time: 35 Attestation: This case had a high probability of a clinically significant, sudden, or life threatening deterioration of this patient's condition which required my full and direct attention, intervention and personal management. 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
[2020-08-19] MEDS: propofol 1,000 MG/100 ML INJ 15 MG IV (02:15)
[2020-08-19 02:24] LABS: Basophils % 0.1 %; Eosinophils % 0.1 %; Hematocrit 42.2 % (42.0-52.0); Hemoglobin 12.9 g/dL (11.7-16.6); Lymphocytes # 1.4 10^3/uL (0.8-4.8); Lymphocytes % 10.2 %; Mean Corpuscular HGB Conc 30.6 g/dL (30.0-36.0); Mean Corpuscular Volume 88.5 fL (80-94); Mean Platelet Volume 10.1 fL (7.4-10.4); Monocytes % 6.8 %; Neutrophils % 80.7 %; Nucleated Red Blood Cells # 0.1 /100WBC; Nucleated Red Blood Cells % 0.9 %; Platelet Count 302 10^3/cmm (130-400); Red Blood Count 4.77 10^6/uL (4.1-5.3); White Blood Count 14.1 10^3/uL (4.0-10.0)
[2020-08-19 02:34] LABS: Arterial Blood Gas Hematocrit 40.3 % (42-52); Base Excess ABG -10.7 mmol/L (-2.0-2.0); Blood Gas Allen Test Pos; Blood Gas Sample Type Arterial; HCO3 ABG 19.6 mmol/L (22-26); PO2 ABG 56.7 mmHg (80.0-100.0)
[2020-08-19 02:35] LABS: Blood Gas Sample Site Radial, right; Blood Gas Tidal Volume 0.55; Oxygen Device VENT
[2020-08-19 02:37] LABS: ABG PCO2 63.1 mmHg (35-45)
[2020-08-19 02:38] LABS: INR 1.23 (0.8-1.2)
[2020-08-19] MEDS: dexamethasone 10 mg/mL INJ IVP (02:41)
[2020-08-19 02:45] LABS: Fibrinogen 763 mg/dL (174-498)
[2020-08-19 02:53] LABS: Alanine Aminotransferase 34 U/L (0-41); Albumin Level 2.9 g/dL (3.5-5.2); Alkaline Phosphatase 97 IU/L (40-130); Anion Gap 21.3 (5-19); Aspartate Amino Transferase 31 U/L (0-40); C Reactive Protein 50.7 mg/L (0.0-4.9); Calcium 8.6 mg/dL (8.5-10.5); Carbon Dioxide 19 mmol/L (22-29); Chloride 102 mmol/L (98-107); Ferritin 291 ng/mL (30-400); Globulin 4.4 g/dL (1.3-4.6); Glomerular Filtration Rate 16.9 mL/min (90-130); Glucose 201 mg/dL (65-115); NT Pro B Type Natriuretic Pept 10557 pg/mL (0-125); Osmolality Calculated 323 mOsm/kg (285-295); Potassium 5.3 mmol/L (3.5-5.1); Sodium 137 mmol/L (136-145); Total Bilirubin 0.2 mg/dL (0.15-1.2); Total Protein 7.3 g/dL (6.6-8.7)
[2020-08-19 02:57] LABS: Glucose Urine UA 2+ (Normal); Protein Urine 3+ (Negative); Urine Appearance Cloudy (CLEAR); Urine Color Yellow (Yellow)
[2020-08-19 02:58] LABS: Add Urine Microscopic? YES; Bilirubin Urine Neg (Negative); Blood Urine 2+ (Negative); Ketones Urine Negative (Negative); Leukocyte Esterase Urine Negative (Negative); Nitrate Urine Negative (Negative); RBC Urine 0-4 /hpf (0-2); Squamous Epithelial Cell Urine 0-4 /hpf (0-5); Urobilinogen Urine Norm (Negative)
[2020-08-19 02:59] LABS: Add Urine Culture? Yes; Bacteria Urine 1+ /hpf
[2020-08-19 03:00] LABS: Lactic Sepsis W/Reflex 2.3 mmol/L (0.5-2.2)
[2020-08-19 03:06] LABS: Blood Urea Nitrogen 105 mg/dL (6-20)
--- NOTE | 2020-08-19 03:20 | P.HP_ITS ---
Providers/Chief Complaint Primary Care Provider: Sulma Wetzel MD Chief Complaint: resp distress History of Present Illness Akil Velasco is a 50 year old male who has multiple comorbid conditions, contracted COVID-19 pneumonia about a week ago, reportedly patient fell at home, he was hypoxic saturating 79%, on 3L nasal cannula oxygen improved to 90%, enroute to the hospital, patient lost pulse, CPR was initiated, after 2 minutes of chest compressions ROSC was achieved without use of any medication, at the time of arrival in the ER his breathing was agonal, was intubated by Dr. Banda. His blood pressure was 175/100, pulse 91, he was intubated and sedated, blood work revealed leukocytosis, high inflammatory markers, ABG reveals respiratory acidosis with hypoxia on 100% FiO2 PEEP of 10 tidal volume 550, hyperkalemia 5.3, metabolic acidosis lactic acid 2.3, chronic kidney disease, CHF exacerbation. In the ER he was given Lasix 60 mg IV push. Chest x-ray consistent with COVID- 19 bilateral pneumonia and pulmonary edema. Review of records revealed grade 1 diastolic dysfunction EF 56%, history of partial nephrectomy, left upper lobe for renal cell cancer, nephrotic syndrome, obstructive sleep apnea, multiple admission in the past secondary to CHF exacerbation. Review of Systems General: Reports: ROS unobtainable due to endotracheal tube Medications/Allergies Home Medications Medication Instructions Recorded Confirmed Last Taken Type gabapentin 600 mg tablet See Rx Instructions .ROUTE 08/04/19 08/14/20 10/04/19 History .COMPLEX PRN carvedilol 25 mg PO BIDPC #60 tab 11/11/19 08/14/20 04/14/20 Rx aspirin 81 mg tablet,delayed 81 mg PO DAILY 11/17/19 08/14/20 04/14/20 History release amlodipine 10 mg tablet 10 mg PO DAILY #90 tab 03/25/20 08/14/20 04/14/20 Rx clonidine HCl 0.2 mg tablet 0.2 mg PO TID 03/25/20 08/14/20 04/14/20 History insulin degludec 200 unit/mL (3 20 unit SUBCUT DAILY 03/25/20 08/14/20 04/14/20 History mL) subcutaneous pen Apidra U-100 Insulin 16 unit SUBCUT TID 04/14/20 08/14/20 Unknown History venlafaxine 75 mg PO DAILY 04/14/20 08/14/20 04/13/20 History hydrochlorothiazide 25 mg PO DAILY #30 tab 04/18/20 08/14/20 Unknown Rx isosorbide mononitrate 30 mg PO DAILY #30 tab 04/18/20 08/14/20 Unknown Rx bumetanide 2 mg tablet 2 mg PO DAILY tab 05/07/20 08/14/20 Unknown History Allergies Allergy/AdvReac Type Severity Reaction Status Date / Time No Known Allergies Allergy Verified 08/14/20 12:05 PFSH Acute PFSH: Medical History Accelerated hypertension Acute on chronic diastolic (congestive) heart failure Jsyyy-ii-qwynsfr kidney injury Anasarca Cancer Cataract (lens) fragments in eye following cataract surgery, bilateral CKD stage 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 Congestive cardiac failure Diabetes Fracture of fifth metatarsal bone of left foot Fracture of fourth metatarsal bone of left foot Hypertension Laceration Metabolic alkalosis Neuropathy PVD (peripheral vascular disease) Renal cell carcinoma History bilateral renal cell carcinoma 2007 then recurrence on the contralateral side 2011. No recurrence for long-term follow-up with some suspicion on CT scan April 2020. Type 2 diabetes mellitus with diabetic polyneuropathy Surgical History H/O partial nephrectomy bilateral Hx of lymph node excision Family History Father Diabetes Mother Diabetes Grandfather Diabetes Cancer Other Hyperlipidemia Social History Smoking and tobacco status: never smoked Alcohol intake: current Alcohol intake frequency: holidays/special occasions only Lives independently: Yes Household members: spouse Housing: House Marital status: Current occupational status: retired History of recent travel: No Current gender identity: Male Vitals/I&O/Wt Last Vital Signs Temp 97.9 F 08/19/20 02:08 Pulse 91 08/19/20 02:49 Resp 17 08/19/20 02:49 BP 175/131 08/19/20 02:49 Pulse Ox 93 08/19/20 02:49 08/18/20 08/18/20 08/19/20 14:59 22:59 06:59 Intake Total 9.375 / 9.375 Balance 9.375 / 9.375 Weight last 48 hrs Weight 124.738 kg Physical Exam Narrative: EXAM NARRATIVE: Morbidly obese male appears more than stated age, unkept appearance Clinical signs of fluid overload Intubated sedated with fentanyl and propofol fentanyl at 50 mics, propofol running at 45 mics, blood pressure 140/90mmhg, heart rate 80 saturating 100% on PEEP of 10 FiO2 100% CMP PEEP 10 tidal volume 550 patient is breathing above the vent, respiratory rate 20 Minute ventilation 13-14 peak pressure 13 Morbidly obese, central obesity, abdominal striae, umbilical hernia Lower extremity 1+ pitting edema bilateral Venous stasis dermatitis History of bilateral breath sounds Pupils symmetrical Melgar catheter draining clear yellow urine S1, S2 with signs of fluid overload Urinary Catheter Management^: Melgar: Cath Placed During This Visit: yes Urinary Catheter Date of Insertion: 08/19/20 Urinary Catheter Time of Insertion: 02:27 Data : 08/19/20 02:16 08/19/20 02:16 A&P Assessment and plan (1) Acute respiratory failure with hypoxia and hypercapnia: Status: Acute (2) Pneumonia due to 2019-nCoV: Status: Acute (3) Respiratory failure: Status: Acute (4) CHF (congestive heart failure), NYHA class III: Status: Acute Qualifiers: Congestive heart failure type: diastolic Congestive heart failure chronicity: chronic Qualified Code(s): I50.32 - Chronic diastolic (congestive) heart failure (5) Acute exacerbation of CHF (congestive heart failure): Status: Acute (6) KAYLEEN (acute kidney injury): Status: Acute (7) Hyperkalemia: Status: Acute Additional A&P Information Acute hypoxic hypercapnic respiratory failure Requiring mechanical ventilation Patient had loss of pulse enroute to the hospital, achieved ROSC after 2 minutes of chest compressions, reportedly he did not get any IV medications At the time of arrival in the ER he was intubated his systolic blood pressure was in 140s heart rate 80s, he was intubated because of obtunded state and agonal breathing Currently patient is intubated and sedated with fentanyl and propofol, fentanyl rate 50, propofol 45 Normal hemodynamic Chest x-ray consistent with COVID-19 pneumonia and bilateral vascular congestion Considering high D-dimer I would start patient on heparin drip, most likely cause of PEA is pulmonary embolism versus severe hypoxia I would hold off on antibiotics, would follow with procalcitonin Repeat blood gas in half an hour Mixed metabolic and respiratory acidosis High lactic acidemia suspected after 2 minutes of cardiac arrest We will follow-up on procalcitonin before initiating broad-spectrum antibiotics COVID-19 pneumonia: Contracted 4 days ago, I will start him on Decadron and for hyperglycemia with use sliding scale Accu-Cheks every 6 hours Acute on chronic renal disease stage IV This most likely is cardiorenal as patient has signs of fluid overload, BNP 10,000 I would keep him on Bumex 1 mg IV twice a day Patient has history of left partial nephrectomy for renal cell cancer, if creatinine is worsening would recommend nephro consult Hyperkalemia: I would give him calcium gluconate and Kayexalate Patient does have history of nephrotic syndrome proteinuria noted Acute CHF exacerbation Grade 1 diastolic dysfunction EF 56% Currently on Bumex 1 mg IV every 12 Clinical signs of fluid overload with generalized anasarca with underlying nephrotic syndrome EKG not showing any ischemic or infarctive change, serial troponin and EKG Full code Would start tube feeding at lower rate DVT prophylaxis not needed currently on heparin gtt Guarded prognosis Attestations Medical Necessity Statement*: Anticipating stay in the hospital course more than 2 midnights currently need ICU management for hypoxic hypercarbic respiratory failure and CHF exacerbation Time Spent in Patient Care: (>than 50% of time spent in counselling and/or direct pt care on unit) . 50mins Coding Level of Care Code Acute Motor Vehicle Escort Driver for [facility] Fwd Diagnoses Acute respiratory failure with hypoxia and hypercapnia J96.01; J96.02 Pneumonia due to 2019-nCoV U07.1; J12.89 Respiratory failure J96.90 CHF (congestive heart failure), NYHA class III I50.32 Congestive heart failure type: diastolic Congestive heart failure chronicity: chronic Acute exacerbation of CHF (congestive heart failure) I50.9 KAYLEEN (acute kidney injury) N17.9 Hyperkalemia E87.5
[2020-08-19] MEDS: FUROsemide 10 mg/mL SDV 10mL 60 MG IVP (03:25)
[2020-08-19 04:27] LABS: Reflex Lactate Order REFLEX LACTIC ORDERD
[2020-08-19 04:31] LABS: ABG PCO2 46.8 mmHg (35-45); ABG PH Result 7.27 (7.35-7.45); Arterial Blood Gas Hematocrit 34.9 % (42-52); Base Excess ABG -5.7 mmol/L (-2.0-2.0); Blood Gas Allen Test Pos; Blood Gas Sample Site Radial, right; Blood Gas Sample Type Arterial; Blood Gas Tidal Volume 0.55; HCO3 ABG 21.3 mmol/L (22-26); Oxygen Device VENT
--- NOTE | 2020-08-19 04:35 | XR_ITS ---
WS: [id number] Portable AP semiupright chest, 08/19/2020, 0423 hours. Clinical Data: NG PLACEMENT Comparison: Portable chest, 08/19/2020, 0218 hours. Findings: The endotracheal tube has been advanced and it appears and in the stomach. The bilateral pu lmonary opacities, endotracheal tube position and cardiomegaly remain the same. XR/XR chest 1V portable [id number] Impression: Nasogastric tube advanced into the stomach.
[2020-08-19 05:09] LABS: Glucose Point of Care 139 mg/dL (70-110)
[2020-08-19] MEDS: dexamethasone 4 mg/mL INJ 6 MG IVP (05:10)
[2020-08-19] MEDS: bumetanide 0.25 mg/mL SDV 4 mL 1 MG IV ×2 (05:10→16:37)
[2020-08-19] MEDS: ipratropium-albuterol 3 mL Neb INHALATION ×5 (05:25→20:40)
--- NOTE | 2020-08-19 05:44 | PC.NURSE ---
Arrived from ED 0450 by stretcher, transferred to bed with lift sheet
--- NOTE | 2020-08-19 05:52 | PC.NURSE ---
Dr. Johansen was notified by other nurse on unit that patient was beathing over the vent with Labored high RR, no response, RT notified of concern vent tidal volumes, Dr. Johansen ordered Versed
[2020-08-19 06:14] LABS: ABG PCO2 52.8 mmHg (35-45); ABG PH Result 7.22 (7.35-7.45); Base Excess ABG -6.8 mmol/L (-2.0-2.0); Blood Gas Allen Test Pos; Blood Gas Operator Identificat HARKR; Blood Gas Sample Site Radial, left; Blood Gas Sample Type Arterial; HCO3 ABG 21.6 mmol/L (22-26); Oxygen Device VENT
[2020-08-19 06:40] LABS: Lactic Acid level (Lactate) 0.8 mmol/L (0.5-2.2)
[2020-08-19] MEDS: propofol 1,000 MG/100 ML INJ 33.7 MG IV ×3 (06:41→12:42)
[2020-08-19 08:08] LABS: Glucose Point of Care 168 mg/dL (70-110)
--- NOTE | 2020-08-19 08:56 | PC.PHAR ---
pt unable to verify medications-called pts and no answer-medications entered are meds that show up on ext med history
[2020-08-19] MEDS: azithromycin 500 MG in sodium chloride 0.9% 250 ML 250 MG IV (09:27)
[2020-08-19] MEDS: carvedilol 25 mg Tablet PO ×2 (09:27→18:17)
[2020-08-19] MEDS: aspirin 81 mg EC Tablet PO (09:27)
--- NOTE | 2020-08-19 09:30 | PC.NURSE ---
[id number] called for update, per phone message receive from , it was ok to update her as would not be able to answer the phone for a while.
--- NOTE | 2020-08-19 11:11 | P.PN_ITS ---
Subjective Subjective: Interval history: Patient is intubated and sedated. 900 CC Urine output. Has remained afebrile, Other Vitals and labs have been reviewed. Medications: Reviewed: Yes Vitals/I&O/Wt Last Vital Signs Temp 97.9 F 08/19/20 02:08 Pulse 71 08/19/20 08:35 Resp 17 08/19/20 08:36 BP 142/85 08/19/20 03:55 Pulse Ox 98 08/19/20 08:35 08/18/20 08/19/20 08/19/20 22:59 06:59 14:59 Intake Total 100.000 / 100.000 100 / 100 Balance 100.000 / 100.000 100 / 100 Weight last 48 hrs Weight 124.738 kg Physical Exam HENMT: COMMON NORMALS: normocephalic and atraumatic HEAD & SCALP: normocephalic and atraumatic Chest: COMMONS NORMALS: normal inspection of the chest CHEST: Yes Symmetrical chest wall rise Resp: OTHER: Diminished Breath sound B/L Cardio: COMMON NORMALS: regular rate, regular rhythm, S1 normal heart sound present, S2 normal heart sound present, No gallops present (Cardio), No murmurs present (Cardio), No rub (Cardio) and Peripheral pulses 2+ throughout RATE: regular rate RHYTHM: regular rhythm HEART SOUNDS: S1 normal heart sound present and S2 normal heart sound present PERIPHERAL PULSES: Peripheral pulses 2+ throughout GI: AUSCULTATION: Yes normoactive bowel sounds RECTAL EXAM: Yes deferred OTHER: Obese adomen. : OTHER: Scrotal edema present Extremity: NARRATIVE EXTREMITY EXAM: 1 + B/L Pitting edema with evidence of statsis dermatitis Urinary Catheter Management^: Melgar: Cath Placed During This Visit: yes Reason for Continuing Indwelling Catheter: Accurate Measurement of Urinary Output in Critically Ill Patients Urinary Catheter Date of Insertion: 08/19/20 Urinary Catheter Time of Insertion: 02:27 Data : 08/19/20 02:16 08/19/20 17:19 Micro: Microbiology 08/19/20 02:39 Blood Culture - Preliminary Blood SPECIMEN COLLECTED A&P Assessment and plan (1) Acute respiratory failure with hypoxia and hypercapnia: Status: Acute (2) Sepsis: Status: Acute (3) Pneumonia due to 2019-nCoV: Status: Acute (4) Respiratory failure: Status: Acute (5) CHF (congestive heart failure), NYHA class III: Status: Acute Qualifiers: Congestive heart failure type: diastolic Congestive heart failure chronicity: chronic Qualified Code(s): I50.32 - Chronic diastolic (congestive) heart failure (6) Acute exacerbation of CHF (congestive heart failure): Status: Acute (7) KAYLEEN (acute kidney injury): Status: Acute (8) Hyperkalemia: Status: Acute Additional A&P Information Acute hypoxic hypercapnic respiratory failure Requiring mechanical ventilation Patient had loss of pulse enroute to the hospital, achieved ROSC after 2 minutes of chest compressions, reportedly he did not get any IV medications At the time of arrival in the ER he was intubated his systolic blood pressure was in 140s heart rate 80s, he was intubated because of obtunded state and agonal breathing Currently patient is intubated and sedated with fentanyl and propofol, fentanyl rate 50, propofol 45 Normal hemodynamic Chest x-ray consistent with COVID-19 pneumonia and bilateral vascular congestion Considering high D-dimer I would start patient on heparin drip, most likely cause of PEA is pulmonary embolism versus severe hypoxia I would hold off on antibiotics, would follow with procalcitonin Repeat blood gas in half an hour Mixed metabolic and respiratory acidosis High lactic acidemia suspected after 2 minutes of cardiac arrest We will follow-up on procalcitonin before initiating broad-spectrum antibiotics COVID-19 pneumonia: Contracted 4 days ago, I will start him on Decadron and for hyperglycemia with use sliding scale Accu-Cheks every 6 hours Acute on chronic renal disease stage IV This most likely is cardiorenal as patient has signs of fluid overload, BNP 10,000 I would keep him on Bumex 1 mg IV twice a day Patient has history of left partial nephrectomy for renal cell cancer, if creatinine is worsening would recommend nephro consult Hyperkalemia: I would give him calcium gluconate and Kayexalate Patient does have history of nephrotic syndrome proteinuria noted Acute CHF exacerbation Grade 1 diastolic dysfunction EF 56% Currently on Bumex 1 mg IV every 12 Clinical signs of fluid overload with generalized anasarca with underlying nephrotic syndrome EKG not showing any ischemic or infarctive change, serial troponin and EKG Full code Would start tube feeding at lower rate DVT prophylaxis not needed currently on heparin gtt Guarded prognosis Attestations Medical Necessity Statement*: Patient needs to be in hospital for the management of r/f 2/2 COVID PNA,SEPSIS 2/2 PNA Critical Care Time: > 45 MINS CRITICAL CARE TIME ( CENTRAL LINE PLACEMENT, VENT MANAGEMENT ,TELE REVIEW, as well as labs, chart review , medications review ) Critical Care Time (min): 45 Coding Level of Care Code Acute Academic Affairs Assistant for g Fwd Diagnoses Acute respiratory failure with hypoxia and hypercapnia J96.01; J96.02 Sepsis A41.9 Pneumonia due to 2019-nCoV U07.1; J12.89 Respiratory failure J96.90 CHF (congestive heart failure), NYHA class III I50.32 Congestive heart failure type: diastolic Congestive heart failure chronicity: chronic Acute exacerbation of CHF (congestive heart failure) I50.9 KAYLEEN (acute kidney injury) N17.9 Hyperkalemia E87.5
[2020-08-19] MEDS: vancomycin 1,500 MG/300 ML PIGGYBACK 200 MG IV (11:40)
[2020-08-19 11:49] LABS: Glucose Point of Care 216 mg/dL (70-110)
[2020-08-19] MEDS: famotidine 20 mg/2 mL INJ IVP (12:42)
--- NOTE | 2020-08-19 13:00 | PC.NURSE ---
for an update and upset that none had been called to her. Spoke with her at length regarding previous message to inform [id number] because she would not be available by phone. Updated her on labs, vent his geneal condition and answered all questions. Set future time for next update, to call back after 3pm.
[2020-08-19] MEDS: propofol 1,000 MG/100 ML INJ 37.4 MG IV ×3 (16:37→21:56)
--- NOTE | 2020-08-19 16:38 | PC.NURSE ---
called, gave her update. No significant changes up to now. Answers questions.
--- NOTE | 2020-08-19 16:40 | PC.NURSE ---
MAR other delay due to other patient's care, needing technical support from IT and speaking to on telephone.
[2020-08-19 17:02] LABS: Glucose Point of Care 175 mg/dL (70-110)
[2020-08-19 17:10] LABS: ABG PCO2 51.3 mmHg (35-45); Alveolar-Arterial Oxygen Gradi 40.2 mmHg (5-10); Arterial Blood Gas Hematocrit 33.5 % (42-52); Base Excess ABG -9.6 mmol/L (-2.0-2.0); Blood Gas Allen Test Pos; Blood Gas LPM 0.5 %; Blood Gas Sample Site Radial, right; Blood Gas Sample Type Arterial; Carboxyhemoglobin < 0.0 %THgb (0.4-20.1); HCO3 ABG 18.8 mmol/L (22-26); HGB O2 Sat 95.3 % (95-100); Ionized Calcium Level - ABG 1.2 mmol/L (1.1-1.4); Methemoglobin < 0.0 % (0.4-1.5); Oxygen Device VENT; Oxygen Saturation ABG 94.8; PO2 ABG 89.7 mmHg (80.0-100.0); Potassium Level - ABG 5.1 mmol/L (3.5-5.0); Total Hemoglobin 10.9 g/dL (14-18)
[2020-08-19 17:15] LABS: ABG PH Result 7.17 (7.35-7.45)
--- NOTE | 2020-08-19 17:29 | PM.CONSULT ---
Providers/Reason For Consult Consulting Physican/Specialty*: Yolanda Dumont DO, telenephrology Reason for Consult*: Acute kidney injury Attending Physician: Paul Freeman MD Primary Care Provider: Sulma Wetzel MD History of Present Illness History of Present Illness Akil Velasco is a 50 year old male admitted with respiratory failure, pulseless arrest, COVID pneumonia. Review of Systems General: Reports: ROS unobtainable due to endotracheal tube Meds/Allergies Home Medications and Allergies Home Medications Medication Instructions Recorded Confirmed Last Taken Type carvedilol 25 mg PO BIDPC #60 tab 11/11/19 08/19/20 04/14/20 Rx aspirin 81 mg tablet,delayed 81 mg PO DAILY 11/17/19 08/19/20 04/14/20 History release amlodipine 10 mg tablet 10 mg PO DAILY #90 tab 03/25/20 08/19/20 04/14/20 Rx clonidine HCl 0.2 mg tablet 0.2 mg PO TID 03/25/20 08/19/20 04/14/20 History venlafaxine 75 mg PO DAILY 04/14/20 08/19/20 04/13/20 History hydrochlorothiazide 25 mg PO DAILY #30 tab 04/18/20 08/19/20 Unknown Rx isosorbide mononitrate 30 mg PO DAILY #30 tab 04/18/20 08/19/20 Unknown Rx bumetanide 2 mg tablet 2 mg PO BID tab 05/07/20 08/19/20 Unknown History atorvastatin 80 mg PO DAILY 08/19/20 08/19/20 Unknown History gabapentin 300 mg PO Q6H 08/19/20 08/19/20 Unknown History insulin degludec [Tresiba 40 unit SUBCUT DAILY 08/19/20 08/19/20 Unknown History FlexTouch U-100] losartan 50 mg PO DAILY 08/19/20 08/19/20 Unknown History metolazone 2.5 mg PO DAILY 08/19/20 08/19/20 Unknown History Allergies Allergy/AdvReac Type Severity Reaction Status Date / Time No Known Allergies Allergy Verified 08/14/20 12:05 Current Medications Current Medications Generic Name Dose Route Start Last Admin Trade Name Freq PRN Reason Stop Dose Admin Albuterol/Ipratropium 3 ml 08/19/20 08:00 08/19/20 15:53 Ipratropium-Albuterol 3 Ml Neb INHALATION 3 ml Q4H.RESPIRATORY [place] Administration Aspirin 81 mg 08/19/20 09:00 08/19/20 09:27 Aspirin 81 Mg Ec Tablet PO 81 mg DAILY [place] Administration Bumetanide 1 mg 08/19/20 05:02 08/19/20 16:37 Bumetanide 0.25 Mg/Ml Sdv 4 Ml IV 1 mg Q12H [place] Administration Carvedilol 25 mg 08/19/20 08:00 08/19/20 09:27 Carvedilol 25 Mg Tablet PO 25 mg BIDPC [place] Administration Dexamethasone 6 mg 08/19/20 05:02 08/19/20 05:10 Dexamethasone 4 Mg/Ml Inj IVP 6 mg Q24H [place] Administration Famotidine 20 mg 08/19/20 12:30 08/19/20 12:42 Famotidine 20 Mg/2 Ml Inj IVP 20 mg Q12H HC[place] Administration Propofol 1,000 mg in 100 mls @ 0 mls/hr 08/19/20 02:15 08/19/20 16:37 Diprivan IV 50 mcg/kg/min .Q0M [place] 37.4 mls/hr Administration Protocol Per Protocol Fentanyl 1,000 mcg/ Sodium 100 mls @ 0 mls/hr 08/19/20 02:30 08/19/20 13:25 Chloride IV 50 mcg/hr .Q0M [place] 5 mls/hr Administration Protocol Per Protocol Midazolam HCl 100 mg/ Sodium 100 mls @ 0 mls/hr 08/19/20 06:00 08/19/20 06:34 Chloride IV 1 mg/hr .Q0M [place] 1 mls/hr Administration Protocol Per Protocol Imipenem/Cilastatin Sodium 250 100 mls @ 200 mls/hr 08/19/20 09:15 08/19/20 16:37 mg/ Sodium Chloride IV 200 mls/hr Q6H [place] Administration Protocol Azithromycin 500 mg/ Sodium 250 mls @ 250 mls/hr 08/19/20 09:15 08/19/20 10:30 Chloride IV Infused Q24H [place] Infusion Protocol Vancomycin/PEG/NADA/Lysine/Water 1,500 mg in 300 mls @ 200 mls/hr 08/19/20 11:00 08/19/20 13:10 Vancocin IV Infused Q24H [place] Infusion Insulin Aspart 0 unit 08/19/20 08:00 08/19/20 12:42 Insulin Aspart 100 Unit/1 Ml SUBCUT 6 unit WM&BEDTIME [place] Administration Protocol PFSH Acute PFSH: Medical History Accelerated hypertension Acute on chronic diastolic (congestive) heart failure Omady-vp-tiwfzej kidney injury Anasarca Cancer Cataract (lens) fragments in eye following cataract surgery, bilateral CKD stage 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 Congestive cardiac failure Diabetes Fracture of fifth metatarsal bone of left foot Fracture of fourth metatarsal bone of left foot Hypertension Laceration Metabolic alkalosis Neuropathy PVD (peripheral vascular disease) Renal cell carcinoma History bilateral renal cell carcinoma 2007 then recurrence on the contralateral side 2011. No recurrence for long-term follow-up with some suspicion on CT scan April 2020. Type 2 diabetes mellitus with diabetic polyneuropathy Surgical History H/O partial nephrectomy bilateral Hx of lymph node excision Family History Father Diabetes Mother Diabetes Grandfather Diabetes Cancer Other Hyperlipidemia Social History Smoking and tobacco status: never smoked Alcohol intake: current Alcohol intake frequency: holidays/special occasions only Lives independently: Yes Household members: spouse Housing: House Marital status: Current occupational status: retired History of recent travel: No Current gender identity: Male Vitals/I&O/Wt Last Vital Signs Temp 97.9 F 08/19/20 02:08 Pulse 64 08/19/20 15:53 Resp 14 08/19/20 15:57 BP 142/85 08/19/20 03:55 Pulse Ox 93 08/19/20 15:53 08/19/20 08/19/20 08/19/20 06:59 14:59 22:59 Intake Total 100.000 / 100.000 953.020 / 953.020 100 / 1053.020 Output Total 650 / 650 Balance 100.000 / 100.000 303.020 / 303.020 100 / 403.020 Weight last 48 hrs Weight 124.738 kg Physical Exam Narrative: EXAM NARRATIVE: sedated on ventilator Const: COMMON NORMALS: no acute distress Extremity: GENERAL: Yes edema (1+ right > left) Urinary Catheter Management^: Melgar: Cath Placed During This Visit: yes Reason for Continuing Indwelling Catheter: Accurate Measurement of Urinary Output in Critically Ill Patients Urinary Catheter Date of Insertion: 08/19/20 Urinary Catheter Time of Insertion: 02:27 Data Labs: Other Labs: lactic acid 2.3, albumin 2.9 urinalysis 3+ protein, 2+ blood Micro: Micro: Microbiology 08/19/20 11:39 Blood Culture - Pr eliminary Blood SPECIMEN [facility] 08/19/20 02:39 Blood Culture - Pr eliminary Blood SPECIMEN [facility] Imaging^: US: Radiologist's impression: 04/2020: Right kidney: 12.2 cm x 5.6 cm x 6.4 cm. Normal echogenicity with no hydronephrosis or mass. Left kidney: 12.2 cm x 5.3 cm x 6.8 cm. Normal size kidney. Focal scarring in the upper pole cortex. Normal echogenicity. Indeterminate for possible complex cyst from the posterior superior LEFT kidney with a maximum diameter of 2.4 cm. This area is poorly visualized due to body habitus. CXR: Radiologist's impression: bilateral opacities, cardiomegaly ABG^: ABG Interpretation 1: 7. 65%, +8 peep A&P Additional A&P Information 1. Acute kidney injury 2. Chronic kidney disease with baseline serum Cr around 2.5 mg/dL, likely due to diabetic nephropathy 3. VDRF due to COVID pneumonia and CHF 4. Combination metabolic (renal failure, sepsis) and respiratory acidosis 5. Hyperkalemia 6. CHF Recommend: increase bumex to 2 mg IV Q12, can increase further as needed. IV sodium bicarbonate infusion Consult Attestations Medical Necessity Statement: critically ill ICU Time Spent in Patient Care: Greater than 35 minutes Coding Level of Care Code Acute Primary Care Md for Patricia Reid
[2020-08-19 17:53] LABS: Calcium 7.9 mg/dL (8.5-10.5); Carbon Dioxide 18 mmol/L (22-29); Chloride 105 mmol/L (98-107); Glomerular Filtration Rate 15.1 mL/min (90-130); Glucose 206 mg/dL (65-115); Osmolality Calculated 323 mOsm/kg (285-295); Sodium 136 mmol/L (136-145)
[2020-08-19] MEDS: sodium bicarbonate 8.4% 1 mEq/mL 50mL Syr 25 MEQ IVP (18:17)
[2020-08-19] MEDS: apixaban 5 mg Tablet PO (18:17)
[2020-08-19 18:33] LABS: Anion Gap 19.7 (5-19); Blood Urea Nitrogen 110 mg/dL (6-20); Potassium 6.7 mmol/L (3.5-5.1)
[2020-08-19] MEDS: sodium bicarbonate 150 MEQ in dextrose 5% 1,000 ML 50 MEQ IV (18:40)
--- NOTE | 2020-08-19 19:00 | PC.NURSE ---
Assuming care: 1899-Patient's gtt found to be running as follows; Fentanyl @100mcg/hr Propofol @50mcg/kg/min Versed @3mL/hr Bicarb @50mL/hr RN updated MAR to reflect that change.
[2020-08-19] MEDS: bumetanide 0.25 mg/mL SDV 10 mL 2 MG IV (19:20)
[2020-08-19] MEDS: dextrose 50% syringe 50 mL IVP (19:20)
[2020-08-19] MEDS: insulin regular-human 10 UNIT in SYRINGE 1 EACH IVP (19:26)
[2020-08-19 19:42] LABS: ABG PCO2 41.6 mmHg (35-45); ABG PH Result 7.25 (7.35-7.45); Alveolar-Arterial Oxygen Gradi 2.3 mmHg (5-10); Arterial Blood Gas Hematocrit 32.8 % (42-52); Base Excess ABG -8.5 mmol/L (-2.0-2.0); Blood Gas Allen Test Pos; Blood Gas Sample Type Arterial; Carboxyhemoglobin < 0.0 %THgb (0.4-20.1); HCO3 ABG 18.3 mmol/L (22-26); HGB O2 Sat 92.5 % (95-100); Ionized Calcium Level - ABG 1.2 mmol/L (1.1-1.4); Methemoglobin 1.5 % (0.4-1.5); Oxygen Saturation ABG 93.7; PO2 ABG 79.6 mmHg (80.0-100.0); Potassium Level - ABG 4.8 mmol/L (3.5-5.0); Total Hemoglobin 10.7 g/dL (14-18)
[2020-08-19 19:44] LABS: Blood Gas Operator Identificat HARKR; Blood Gas Sample Site Radial, right; Oxygen Device VENT
--- NOTE | 2020-08-19 19:46 | PC.NURSE ---
Shift summary: Pt remained intubated and sedated throughout shift. He has Fentanyl, Propofol and versed gtts for sedation. He breaths faster than the vent. He uses his stomach muscles . His FIO2 was decreased to 65% today. [facility] redrawn this evening. Bicarb gtt started, as he is acidotic. has been updated twice today.
[2020-08-19 21:18] LABS: Glucose Point of Care 195 mg/dL (70-110)
[2020-08-19] MEDS: sodium polystyrene sulfonate 15 gm/60 mL Btl PO (21:23)
--- NOTE | 2020-08-19 23:24 | XRR_ITS ---
PROCEDURE INFORMATION: Exam: XR Pelvis Exam date and time: 08/19/2020 11:29 PM Age: 50 years old Clinical indication: Device placement; Other: Femoral line placemnet; Additional info: Central line placement, femoral line placement TECHNIQUE: Imaging protocol: XR pelvis. Views: 1 or 2 view. COMPARISON: CT chest abd pel wo con 10/04/2019 6:43 PM FINDINGS: Bones/joints: Right inguinal region central venous catheter seen with tip the region of the right acetabulum. Soft tissues: Unremarkable. XR/XR pelvis 1-2V* [id number] IMPRESSION: Right inguinal region central venous catheter seen with tip the region of the right acetabulum.
--- NOTE | 2020-08-19 23:31 | PM.ACPR ---
Acute Procedures Central Line Placement^: Right Femoral: Time out performed: Yes Patient placed on monitor/pulse ox: Yes MD prep: mask, gown and gloves Central line prep: Chlorhexidine scrub Local anesthesia used: lidocaine 2% Ultrasound used for placement: Yes Central line lumen inserted: triple Post procedure: sutured in place, good blood return, all ports aspirated, flushed, capped and sterile dressing applied Patient tolerated procedure: well Complications: none
[2020-08-19 23:46] LABS: Anion Gap 18.7 (5-19); Calcium 8.4 mg/dL (8.5-10.5); Carbon Dioxide 20 mmol/L (22-29); Chloride 104 mmol/L (98-107); Glomerular Filtration Rate 14.3 mL/min (90-130); Glucose 195 mg/dL (65-115); Potassium 4.7 mmol/L (3.5-5.1); Sodium 138 mmol/L (136-145)
[2020-08-19 23:54] LABS: Blood Urea Nitrogen 122 mg/dL (6-20); Osmolality Calculated 330 mOsm/kg (285-295)
[2020-08-20] VITALS (150 sets, daily range): BP systolic 144–168; BP diastolic 85–99; PULSE 54–66; RESP 16; TEMP 33.6–37.2; O2SAT 87–99
[2020-08-20] MEDS: ipratropium-albuterol 3 mL Neb INHALATION ×7 (00:50→23:25)
[2020-08-20] MEDS: famotidine 20 mg/2 mL INJ IVP ×2 (00:53→14:25)
[2020-08-20] MEDS: propofol 1,000 MG/100 ML INJ 37.4 MG IV ×4 (00:53→09:46)
--- NOTE | 2020-08-20 01:05 | PC.NURSE ---
Verbal Consent: Verbal consent was obtained from patient's Haily Velasco for placement of central line via phone call. Second nurse, Viktoria SCHERER, also verified consent over the phone for placement to be done. RN also updated on pt's continued critical status. No further questions at this time.
--- NOTE | 2020-08-20 01:19 | PC.NURSE ---
Central line placement: Central line placement was completed by MD Pete on 08/19/20 @2045. Sterile technique used during placement to right femoral. RN assisted in procedure, and ordered xray to verify placement after line was placed. Patient tolerated well. Blood return established, and easily flushable. gave RN v/o to place sandbag to site to be proactive in possible bleeds as indicated per pt's coagulation status. RN monitoring for any indication of swelling and/or bleed.
--- NOTE | 2020-08-20 01:31 | PC.NURSE ---
Family Called: RN spoke with patient's sister, and gave her update on his current status. Sister was also updated on the central line placement, meds given this far in shift, lab work trending, and current ordered plan of actions. RN verified that sister had contact with pt's , and encouraged them to keep contact with each other to update on pts status going forward. And to avoid miscommunication and missed opportunities for future updates with multiple phone calls from family members coming in throughout day. No further questions at this time for RN.
[2020-08-20 04:20] LABS: Basophils % 0.1 %; Hematocrit 35.2 % (42.0-52.0); Hemoglobin 10.9 g/dL (11.7-16.6); Lymphocytes # 0.5 10^3/uL (0.8-4.8); Lymphocytes % 6.3 %; Mean Corpuscular Hemoglobin 26.8 pg (28.0-34.0); Mean Corpuscular Volume 86.5 fL (80-94); Mean Platelet Volume 10.3 fL (7.4-10.4); Monocytes # 0.5 10^3/uL (0.2-0.9); Monocytes % 6.1 %; Neutrophils # 6.61 10^3/uL (1.8-7.7); Neutrophils % 85.7 %; Nucleated Red Blood Cells % 0 %; Platelet Count 202 10^3/cmm (130-400); Red Blood Count 4.07 10^6/uL (4.1-5.3); Red Cell Distribution Width 14.1 % (12.1-15.1); White Blood Count 7.7 10^3/uL (4.0-10.0)
[2020-08-20 04:54] LABS: Creatine Phosphokinase 143 U/L (39-308); Ferritin 315 ng/mL (30-400); Lactate Dehydrogenase 318 U/L (135-225)
[2020-08-20 04:55] LABS: ABG PCO2 41.2 mmHg (35-45); ABG PH Result 7.28 (7.35-7.45); Arterial Blood Gas Hematocrit 33.1 % (42-52); Base Excess ABG -7.2 mmol/L (-2.0-2.0); Blood Gas Allen Test Pos; Blood Gas Sample Type Arterial; Carboxyhemoglobin < 0.0 %THgb (0.4-20.1); HCO3 ABG 19.2 mmol/L (22-26); Methemoglobin 1.3 % (0.4-1.5); PO2 ABG 74.3 mmHg (80.0-100.0); Total Hemoglobin 10.8 g/dL (14-18)
[2020-08-20 04:57] LABS: Alanine Aminotransferase 24 U/L (0-41); Albumin Level 2.4 g/dL (3.5-5.2); Alkaline Phosphatase 67 IU/L (40-130); Anion Gap 18.4 (5-19); Aspartate Amino Transferase 15 U/L (0-40); Calcium 8.2 mg/dL (8.5-10.5); Carbon Dioxide 20 mmol/L (22-29); Chloride 104 mmol/L (98-107); Globulin 3.7 g/dL (1.3-4.6); Glomerular Filtration Rate 15.1 mL/min (90-130); Glucose 185 mg/dL (65-115); Potassium 4.4 mmol/L (3.5-5.1); Sodium 138 mmol/L (136-145); Total Bilirubin 0.2 mg/dL (0.15-1.2); Total Protein 6.1 g/dL (6.6-8.7)
[2020-08-20 04:58] LABS: Blood Gas Operator Identificat HARKR; Blood Gas Sample Site Radial, right; Oxygen Device VENT
[2020-08-20] MEDS: dexamethasone 4 mg/mL INJ 6 MG IVP (05:06)
[2020-08-20 05:18] LABS: Glucose Point of Care 173 mg/dL (70-110)
[2020-08-20 05:32] LABS: Blood Urea Nitrogen 120 mg/dL (6-20); Osmolality Calculated 329 mOsm/kg (285-295)
[2020-08-20 06:13] LABS: C Reactive Protein 103.8 mg/L (0.0-4.9)
[2020-08-20 06:22] LABS: Vancomycin Random 11.7 ug/mL (20.0-40.0)
--- NOTE | 2020-08-20 07:45 | PC.NURSE ---
Shift Summary: Patient exhibited some response to RN during bed bath, and with turning this AM around shift change. Titrations made based on pt tolerance. (See MAR flowsheet). MD precision machining instructor called with pt last BG level checked this AM by RN, that resulted in a 170's BG. No new orders given. Central line site shows no sign of bleed and continues to draw and flush easily. Patient's called this AM for update in status. Current v/s, meds, plan of care, and u/o given. Questions answered accordingly. Bumex admin given overnight at 2100 instead of 2300 based on v/o from MD. MD precision machining instructor notified of pt's BUN critical level. No new orders given. 2200 u/o Current gtt; Fent 90mcg Prop 50mcg Versed 3mL Bicarb 50mL Vent settings currently at 65% Fio2 with SPO2 fluctuating between 93-97%. 16 RR. TV 600. 8.0 ET and 27@lip. Pete MD updated on pts status this water analyst via phonecall. Report given to rekha syed RN.
[2020-08-20 09:07] LABS: Glucose Point of Care 193 mg/dL (70-110)
--- NOTE | 2020-08-20 09:28 | P.PN_ITS ---
Subjective Subjective: Interval history: intubated Medications: Reviewed: Yes Vitals/I&O/Wt Last Vital Signs Temp 98.9 F 08/20/20 03:55 Pulse 57 L 08/20/20 07:56 Resp 16 08/20/20 07:59 BP 152/92 08/20/20 04:40 Pulse Ox 92 08/20/20 07:56 08/19/20 08/20/20 08/20/20 22:59 06:59 14:59 Intake Total 655.521 / 1608.541 509.850 / 2118.391 120 / 120 Output Total 250 / 900 2200 / 3100 Balance 405.521 / 708.541 -1690.150 / -981.609 120 / 120 Weight last 48 hrs Weight 124.738 kg Physical Exam Const: COMMON NORMALS: no acute distress Extremity: GENERAL: Yes edema Urinary Catheter Management^: Melgar: Cath Placed During This Visit: yes Reason for Continuing Indwelling Catheter: Accurate Measurement of Urinary Output in Critically Ill Patients Urinary Catheter Date of Insertion: 08/19/20 Urinary Catheter Time of Insertion: 02:27 Data : 08/20/20 03:17 08/20/20 03:17 Other Labs: calcium 8.2, albumin 2.4, cor Ca 9.4, Mg 2 Micro: Microbiology 08/19/20 02:39 Blood Culture - Preliminary Blood NEGATIVE TO DATE 08/19/20 11:39 Blood Culture - Preliminary Blood SPECIMEN COLLECTED ABG Interpretation 1: 7.28/41/74 AC 16/65%/+8 peep A&P Additional A&P Information 1. Acute kidney injury, good urine output, I/O neg about 1 liter 2. Chronic kidney disease with baseline serum Cr around 2.5 mg/dL, likely due to diabetic nephropathy 3. VDRF due to COVID pneumonia and CHF 4. Combination metabolic (renal failure, sepsis) and respiratory acidosis 5. Hyperkalemia, resolved Recommend: continue bumex to 2 mg IV Q12, continue IV sodium bicarbonate infusion Attestations Medical Necessity Statement*: critically ill in ICU Time Spent in Patient Care: Greater than 35 minutes Coding Level of Care Code Acute Head Turning Machine Operator for [facility]
[2020-08-20] MEDS: azithromycin 500 MG in sodium chloride 0.9% 250 ML 250 MG IV (09:46)
[2020-08-20] MEDS: carvedilol 25 mg Tablet PO ×2 (09:47→20:33)
[2020-08-20] MEDS: bumetanide 0.25 mg/mL SDV 10 mL 2 MG IV ×2 (09:48→21:46)
[2020-08-20] MEDS: aspirin 81 mg EC Tablet PO (09:51)
--- NOTE | 2020-08-20 10:34 | XR_ITS ---
WS: [id number] Portable AP upright chest, 08/20/2020 Clinical Data: tube placement Comparison: Portable chest, 08/19/2020 Findings: The endotracheal tube and nasogastric tube are in good position. The heart remains enlarged . Bilateral dense opacities are unchanged. There are monitor leads on the chest wall. XR/XR chest 1V portable [id number] Impression: 1. No change in cardiomegaly and dense pulmonary opacities. 2. Endotracheal tube and nasogastric tube are in good position.
[2020-08-20] MEDS: propofol 1,000 MG/100 ML INJ 56.1 MG IV ×3 (11:49→16:21)
[2020-08-20] MEDS: cisatracurium 100 MG in sodium chloride 0.9% 50 ML IV (11:54)
--- NOTE | 2020-08-20 12:00 | PC.NURSE ---
1200-- PT WOULD STOP BREATHING FOR 30 SECONDS AT A TIME WHILE VENTILATED. RT & DR AT BEDSIDE. INCREASED ALL SEDATION MEDS PER PHYSICIAN ORDER. DECISION WAS MADE TO PUT PT ON A PARALYTIC TO GET CONTROL OVER HIS BREATHING. NIMBEX @3mcg/kg/min infusing through right femoral line.
--- NOTE | 2020-08-20 12:21 | P.PN_ITS ---
Subjective Subjective: Interval history: Mr.Mayo Barnard is intubated,sedated and paralysed. He was fighting vent resulting in airway flow obstruction and sevre ventilator dyssynchrony.He failed to respond to maximum sedation hence the need to paralyse arised.Post paralysis he is on PRVC mode with Tv of :600cc, r/r : 16 ,PEEP:8, FIO2: 50 % PIP:24, Ppal:22, Lung compliance 39, Driving pressure ( Pleatue -PEEP) was not determined today.The aim is to keep Driving Pressure below or around 14 with pleateu pressure <30. Aim is to faciliate dry lung ventilation and preserve the baby lung He has remained afebrile, and has maintained a fairly good MAP without any inotropic or vasopressor support. Medications: Reviewed: Yes Vitals/I&O/Wt Last Vital Signs Temp 98.9 F 08/20/20 03:55 Pulse 62 08/20/20 11:37 Resp 16 08/20/20 11:39 BP 152/92 08/20/20 04:40 Pulse Ox 92 08/20/20 11:37 08/19/20 08/20/20 08/20/20 22:59 06:59 14:59 Intake Total 655.521 / 1608.541 509.850 / 2118.391 519.083 / 519.083 Output Total 250 / 900 2200 / 3100 400 / 400 Balance 405.521 / 708.541 -1690.150 / -981.609 119.083 / 119.083 Weight last 48 hrs Weight 124.738 kg Physical Exam HENMT: COMMON NORMALS: normocephalic and atraumatic HEAD & SCALP: normocephalic and atraumatic Chest: COMMONS NORMALS: normal inspection of the chest CHEST: Yes Symmetrical chest wall rise Resp: OTHER: Diminished Breath sound B/L Cardio: COMMON NORMALS: regular rate, regular rhythm, S1 normal heart sound present, S2 normal heart sound present, No gallops present (Cardio), No murmurs present (Cardio), No rub (Cardio) and Peripheral pulses 2+ throughout RATE: regular rate RHYTHM: regular rhythm HEART SOUNDS: S1 normal heart sound present and S2 normal heart sound present PERIPHERAL PULSES: Peripheral pulses 2+ throughout GI: AUSCULTATION: Yes normoactive bowel sounds RECTAL EXAM: Yes deferred OTHER: Obese adomen. : OTHER: Scrotal edema present Extremity: NARRATIVE EXTREMITY EXAM: 1 + B/L Pitting edema with evidence of statsis dermatitis Urinary Catheter Management^: Melgar: Cath Placed During This Visit: yes Reason for Continuing Indwelling Catheter: Accurate Measurement of Urinary Output in Critically Ill Patients Urinary Catheter Date of Insertion: 08/19/20 Urinary Catheter Time of Insertion: 02:27 Data : 08/20/20 03:17 08/20/20 03:17 Micro: Microbiology 08/19/20 11:39 Blood Culture - Preliminary Blood NEGATIVE TO DATE 08/19/20 02:17 Urine Culture - Final Urine,Clean Catch 08/19/20 02:39 Blood Culture - Preliminary Blood NEGATIVE TO DATE A&P Assessment and plan (1) ARDS (adult respiratory distress syndrome): Acute hypoxic hypercapnic respiratory failure 2/2 Severe ARDS 2/2 to COVID PNA/Bacterial PNA/HFPEF exacerbation. Not a Candidate for REMDESVIR Dure to Renal dysfunction. On Dexamaethasone 6 mg I.V Daily Ascorbic Acid ZINC DUO Nebs Pulmonary Toilet Daily ABG Daily xray chest Blood culture : Negative Sputum Culture :Negative Urine culture :Pending Urine Legionella : Urine bacterial antigen: Lactic acid:Nl Procal :Normal Currently on fentayl,versed,Propofol Currently on Nimbus ( 16 hrs) Continue Vancomycin,Imipenam,Levofloxacin DC Azithromycin On Bumex 2mg q12 On Metolazone 5 mg po daily Daily I/O Daily weight Status: Acute (2) Acute respiratory failure with hypoxia and hypercapnia: PLan 1 Status: Acute (3) Sepsis: Status: Acute (4) Pneumonia due to 2019-nCoV: Status: Acute (5) CHF (congestive heart failure), NYHA class III: Status: Acute Qualifiers: Congestive heart failure type: diastolic Congestive heart failure chronicity: chronic Qualified Code(s): I50.32 - Chronic diastolic (congestive) heart failure (6) Acute exacerbation of CHF (congestive heart failure): Status: Acute (7) KAYLEEN (acute kidney injury): Status: Acute (8) Hyperkalemia: Status: Acute (9) Mixed acid base balance disorder: Predominantly metabolic 2/2 ARF Currently on Bicarb Drip. @ 50 cc/hr Status: Acute Additional A&P Information Acute hypoxic hypercapnic respiratory failure: Requiring mechanical ventilation Patient had loss of pulse enroute to the hospital, achieved ROSC after 2 minutes of chest compressions, reportedly he did not get any IV medications At the time of arrival in the ER he was intubated his systolic blood pressure was in 140s heart rate 80s, he was intubated because of obtunded state and agonal breathing Currently patient is intubated and sedated with fentanyl and propofol, fentanyl rate 50, propofol 45 Normal hemodynamic Chest x-ray consistent with COVID-19 pneumonia and bilateral vascular congestion Considering high D-dimer I would start patient on heparin drip, most likely cause of PEA is pulmonary embolism versus severe hypoxia I would hold off on antibiotics, would follow with procalcitonin Repeat blood gas in half an hour Mixed metabolic and respiratory acidosis High lactic acidemia suspected after 2 minutes of cardiac arrest We will follow-up on procalcitonin before initiating broad-spectrum antibiotics COVID-19 pneumonia: Contracted 4 days ago, I will start him on Decadron and for hyperglycemia with use sliding scale Accu-Cheks every 6 hours Acute on chronic renal disease stage IV This most likely is cardiorenal as patient has signs of fluid overload, BNP 10,000 I would keep him on Bumex 1 mg IV twice a day Patient has history of left partial nephrectomy for renal cell cancer, if c reatinine is worsening would recommend nephro consult Hyperkalemia: I would give him calcium gluconate and Kayexalate Patient does have history of nephrotic syndrome proteinuria noted Acute CHF exacerbation Grade 1 diastolic dysfunction EF 56% Currently on Bumex 1 mg IV every 12 Clinical signs of fluid overload with generalized anasarca with underlying nephrotic syndrome EKG not showing any ischemic or infarctive change, serial troponin and EKG Full code Would start tube feeding at lower rate DVT prophylaxis not needed currently on heparin gtt Guarded prognosis Attestations Medical Necessity Statement*: Patient needs to be in hospital for the management of ARDS,Sepsis, PNA, R/F Critical Care Time: Ventilator management, paralysis protocol,Family counselling and PCP update. Critical Care Time (min): 40 Coding Level of Care Code Acute Safety And Security Manager for [facility] Fwd Diagnoses ARDS (adult respiratory distress syndrome) J80 Acute respiratory failure with hypoxia and hypercapnia J96.01; J96.02 Sepsis A41.9 Pneumonia due to 2019-nCoV U07.1; J12.89 CHF (congestive heart failure), NYHA class III I50.32 Congestive heart failure type: diastolic Congestive heart failure chronicity: chronic Acute exacerbation of CHF (congestive heart failure) I50.9 KAYLEEN (acute kidney injury) N17.9 Hyperkalemia E87.5 Mixed acid base balance disorder E87.4
[2020-08-20 13:48] LABS: Glucose Point of Care 200 mg/dL (70-110)
[2020-08-20 15:04] LABS: ABG PCO2 39.2 mmHg (35-45); Arterial Blood Gas Hematocrit 36.5 % (42-52); Base Excess ABG -6.9 mmol/L (-2.0-2.0); Blood Gas Allen Test Pos; Blood Gas Operator Identificat MONRO; Blood Gas Sample Site Radial, right; Blood Gas Sample Type Arterial; Carboxyhemoglobin 0.5 %THgb (0.4-20.1); HCO3 ABG 19.1 mmol/L (22-26); HGB O2 Sat 95.6 % (95-100); Ionized Calcium Level - ABG 1.2 mmol/L (1.1-1.4); Methemoglobin 1.6 % (0.4-1.5); Oxygen Saturation ABG 97.7; Potassium Level - ABG 4.5 mmol/L (3.5-5.0); Total Hemoglobin 11.9 g/dL (14-18)
[2020-08-20 15:05] LABS: Alveolar-Arterial Oxygen Gradi 44.5 mmHg (5-10); Oxygen Device VENT
[2020-08-20] MEDS: sodium bicarbonate 150 MEQ in dextrose 5% 1,000 ML 50 MEQ IV (16:22)
[2020-08-20] MEDS: vancomycin 1,500 MG/300 ML PIGGYBACK 200 MG IV (16:24)
--- NOTE | 2020-08-20 16:54 | PC.NURSE ---
1400- manual extraction of large formed stool from rectum.
[2020-08-20 18:10] LABS: Glucose Point of Care 221 mg/dL (70-110)
[2020-08-20] MEDS: propofol 1,000 MG/100 ML INJ 44.9 MG IV ×3 (18:50→23:29)
--- NOTE | 2020-08-20 19:00 | PC.NURSE ---
Assuming care: Patient remains intubated with vent setting of Fio2 at 50%, 8 of peep, 27 at lip, TV 600, and RR at 16. NG placed during dayshift clamped. Patient in sinus rhythm. MD Pete at bedside with orders discussed for AM nursing care. Sedation and paralytic gtt as follows; Propofol 60mcg/kg/hr, Versed 4mg/hr, Bicarb 50mL/hr, Fentanyl 125mcg/hr, and Nimbex 0.6mcg/kg/min. See MAR flowsheet for titrations.
--- NOTE | 2020-08-20 19:25 | PC.NURSE ---
New orders: During nursing shift assessment, RN was unable to retrieve an auxiliary temperature. RN instructed CREDIT COLLECTIONS SPECIALIST who was at bedside at the time, to attempt to take temp with different device. CREDIT COLLECTIONS SPECIALIST staff unable to retrieve temperature as well. RN then began rewarming with bear hugger blanket, then retrieved and placed rectal thermometer probe for baseline and accurate temp measurements/monitoring. Rectal temp found to be 92.1 F. Pt then began visibly shivering against sedation and paralytic medications. RN titrated meds up based on protocols and MD orders (See MAR flowsheet). BIS monitor, and TO4 each showed adequate sedation and paralytic titrations. MD gave orders to increase Nimbex gtt titration up by 1mcg/kg Q30 mins until shivering stops. V/o for max rate of 10mcg to be given. Shivering finally ceased with titration up to 0.5mcg. TO4 2, BIS 39. Temp is slowly increasing. RN closely monitoring.
[2020-08-20 20:22] LABS: Glucose Point of Care 205 mg/dL (70-110)
[2020-08-20] MEDS: artificial tears Op Soln 15 mL Btl 1 DROP EYE-BOTH (21:38)
[2020-08-20] MEDS: levofloxacin-dextrose 5 % 500 MG/100 ML PREMIX 100 MG IV (21:44)
[2020-08-20] MEDS: metOLazone 5 MG Tablet PO (23:04)
[2020-08-20 23:54] LABS: Glucose Point of Care 201 mg/dL (70-110)
[2020-08-21] VITALS (139 sets, daily range): BP systolic 132–167; BP diastolic 75–107; PULSE 64–79; RESP 16–18; TEMP 35.6–37.3; O2SAT 88–97
[2020-08-21] MEDS: famotidine 20 mg/2 mL INJ IVP ×3 (00:52→23:38)
--- NOTE | 2020-08-21 01:39 | PC.NURSE ---
Assuming care: Patient intubated with Fio2 at 50%, 8 of peep, 27 at lip, TV 600, and RR at 16. NG placed during dayshift clamped. Patient in sinus rhythm. MD Pete at bedside with orders discussed for AM nursing care. Sedation and paralytic gtt as follows; Propofol 60mcg/kg/hr, Versed 4mg/hr, Bicarb 50mL/hr, Fentanyl 125mcg/hr, and Nimbex 0.6mcg/kg/min. See MAR flowsheet for titrations.
[2020-08-21] MEDS: propofol 1,000 MG/100 ML INJ 44.9 MG IV ×7 (02:02→16:22)
--- NOTE | 2020-08-21 03:29 | PC.NURSE ---
Jeff Talamantes paused on basis of patient's rectal temp at 98.7.
[2020-08-21] MEDS: ipratropium-albuterol 3 mL Neb INHALATION ×5 (04:18→19:41)
[2020-08-21] MEDS: dexamethasone 4 mg/mL INJ 6 MG IVP (04:29)
[2020-08-21 04:39] LABS: Platelet Count 200 10^3/cmm (130-400)
[2020-08-21 05:08] LABS: Ferritin 336 ng/mL (30-400)
[2020-08-21 05:10] LABS: Alanine Aminotransferase 20 U/L (0-41); Alkaline Phosphatase 56 IU/L (40-130); Anion Gap 20.5 (5-19); Aspartate Amino Transferase 9 U/L (0-40); Calcium 8.1 mg/dL (8.5-10.5); Carbon Dioxide 20 mmol/L (22-29); Chloride 105 mmol/L (98-107); Globulin 3.7 g/dL (1.3-4.6); Glomerular Filtration Rate 15.5 mL/min (90-130); Glucose 190 mg/dL (65-115); Osmolality Calculated 332 mOsm/kg (285-295); Potassium 4.5 mmol/L (3.5-5.1); Sodium 141 mmol/L (136-145); Total Bilirubin 0.2 mg/dL (0.15-1.2); Total Protein 5.7 g/dL (6.6-8.7)
[2020-08-21 05:14] LABS: Blood Urea Nitrogen 111 mg/dL (6-20)
[2020-08-21 05:49] LABS: D Dimer 0.98 ug/mIFEU (0-0.59)
[2020-08-21 06:10] LABS: Glucose Point of Care 145 mg/dL (70-110)
[2020-08-21 06:41] LABS: Glucose Point of Care 209 mg/dL (70-110)
--- NOTE | 2020-08-21 06:53 | USR_ITS ---
PROCEDURE INFORMATION: Exam: US Duplex Lower Extremity Veins, Bilateral Exam date and time: 08/21/2020 8:03 AM Age: 50 years old Clinical indication: Edema, localized; Lower extremity, bilateral; Additional info: Dvt TECHNIQUE: Imaging protocol: Real-time duplex ultrasound of the extremities with 2-D pastrana scale, color Doppler flow and spectral waveform analysis with image documentation. Complete exam focused on the bilateral lower extremity veins. COMPARISON: US renal BI with PV bladder 08/11/2019 6:15 PM FINDINGS: Right deep veins: Unremarkable. The common femoral, femoral, proximal profunda femoral and popliteal veins are patent without thrombus. Normal Doppler waveforms. Normal compressibility and/or augmentation response. Right superficial veins: Saphenofemoral junction is patent without thrombus. Left deep veins: Unremarkable. The common femoral, femoral, proximal profunda femoral and popliteal veins are patent without thrombus. Normal Doppler waveforms. Normal compressibility and/or augmentation response. Left superficial veins: Saphenofemoral junction is patent without thrombus. Soft tissues: Unremarkable. US/[place] [id number] IMPRESSION: No evidence of deep vein thrombosis.
[2020-08-21 07:48] LABS: Glucose Point of Care 155 mg/dL (70-110)
--- NOTE | 2020-08-21 08:35 | PC.NURSE ---
Shift Summary: Patient overall did well overnight. After targeted temp range achieved, bear hugger was then paused and RN carefully observed pt temp levels for any serious fluctuations. Pt was able to self maintain temp levels from then forward until RN gave report to rekha syed RN. healthcare administration internship at [employer] this AM and gave orders to pause Nimbex and paralytic trial as of this AM, and restart if pt was to become noncompliant against vent settings again. 2300 u/o Running gtt as follows; Propofol 45 Fent 125 Versed 4 Bicarb 50 TO4: BIS: 1900-2 33 2000-3 40 2100-3 39 2200-2 37 2300-2 36 0000-2 40 0100-3 41 0200-2 38 0300-2 41 0400-2 38 0500-2 37 0600-2 43 0700-2 40
[2020-08-21 09:15] LABS: ABG PCO2 44.3 mmHg (35-45); ABG PH Result 7.28 (7.35-7.45); Alveolar-Arterial Oxygen Gradi 39.9 mmHg (5-10); Arterial Blood Gas Hematocrit 36.4 % (42-52); Base Excess ABG -5.8 mmol/L (-2.0-2.0); Blood Gas Allen Test Pos; Blood Gas Sample Site Radial, right; Blood Gas Sample Type Arterial; Carboxyhemoglobin < 0.0 %THgb (0.4-20.1); HCO3 ABG 20.8 mmol/L (22-26); HGB O2 Sat 89.4 % (95-100); Ionized Calcium Level - ABG 1.1 mmol/L (1.1-1.4); Methemoglobin 1.2 % (0.4-1.5); Oxygen Device VENT; Oxygen Saturation ABG 90.4; Potassium Level - ABG 5.7 mmol/L (3.5-5.0); Total Hemoglobin 11.9 g/dL (14-18)
--- NOTE | 2020-08-21 09:17 | XRR_ITS ---
PROCEDURE INFORMATION: Exam: XR Chest, 1 View Exam date and time: 08/21/2020 9:27 AM Age: 50 years old Clinical indication: Device placement; Ett placement (vent status); Additional info: Intubation TECHNIQUE: Imaging protocol: XR of the chest Views: 1 view. COMPARISON: CR XR chest 1V portable [id number] 08/20/2020 10:51 AM FINDINGS: Tubes, catheters and devices: An endotracheal tube and nasogastric tube projects in satisfactory position. Lungs: Bilateral diffuse pulmonary infiltrates are present especially in the left lung. There is left basilar worsening opacification consistent with lower lobe atelectasis. Pleural space: Unremarkable. No pleural effusion. No pneumothorax. Heart/Mediastinum: Unremarkable. No cardiomegaly. Bones/joints: Unremarkable. XR/XR chest 1V portable [id number] IMPRESSION: 1. Bilateral interstitial infiltrates. These have improved in the right lung since previous study. 2. Worsening left lower lobe atelectasis.
--- NOTE | 2020-08-21 09:19 | P.PN_ITS ---
Subjective Subjective: Interval history: Mr.Mayo Barnard is intubated,sedated and paralysed. He was fighting vent resulting in airway flow obstruction and sevre ventilator dyssynchrony.He failed to respond to maximum sedation hence the need to paralyse arised.Post paralysis he is on PRVC mode with Tv of :600cc, r/r : 16 ,PEEP:8, FIO2: 50 % PIP:24, Ppal:22, Lung compliance 39, Driving pressure ( Pleatue -PEEP) was not determined today.The aim is to keep Driving Pressure below or around 14 with pleateu pressure <30. Aim is to faciliate dry lung ventilation and preserve the baby lung He has remained afebrile, and has maintained a fairly good MAP without any inotropic or vasopressor support. Paralytic weaning was again attempted today,which he failed. Started on Precedex Medications: Reviewed: Yes Vitals/I&O/Wt Last Vital Signs Temp 98.8 F 08/21/20 04:55 Pulse 74 08/21/20 08:05 Resp 18 08/21/20 08:05 BP 153/82 08/21/20 06:30 Pulse Ox 90 08/21/20 08:05 08/20/20 08/21/20 08/21/20 22:59 06:59 14:59 Intake Total 2054.374 / 2935.957 726.458 / 3662.415 47.808 / 47.808 Output Total 300 / 950 2400 / 3350 Balance 1754.374 / 1985.957 -1673.542 / 312.415 47.808 / 47.808 Physical Exam HENMT: COMMON NORMALS: normocephalic and atraumatic HEAD & SCALP: no rmocephalic and atraumatic Chest: COMMONS NORMALS: normal inspection of the chest CHEST: Yes Sy mmetrical chest wall rise Resp: OTHER: Diminished Breath sound B/L Cardio: COMMON NORMALS: regular rate, regular rhythm, S1 normal heart sound present, S2 normal heart sound present, No gallops present (Cardio), No murmurs present (Cardio), No rub (Cardio) and Peripheral pulses 2+ throughout RATE: regular rate RHYTHM: regular rhythm HEART SOUNDS: S1 normal heart sound present and S2 normal heart sound present PERIPHERAL PULSES: Peripheral pulses 2+ throughout GI: AUSCULTATION: Yes normoactive bowel sounds RECTAL EXAM: Yes deferred OTHER: Obese adomen. : OTHER: Scrotal edema present Extremity: NARRATIVE EXTREMITY EXAM: 1 + B/L Pitting edema with evidence of statsis dermatitis Urinary Catheter Management^: Melgar: Cath Placed During This Visit: yes Reason for Continuing Indwelling Catheter: Accurate Measurement of Urinary Output in Critically Ill Patients Urinary Catheter Date of Insertion: 08/19/20 Urinary Catheter Time of Insertion: 02:27 Data : 08/21/20 11:35 08/21/20 11:35 Micro: Microbiology 08/21/20 06:00 Legionella Urinary Antigen - Final Urine Catheterized 08/21/20 06:00 Bacterial Antigens - Final Urine,Voided 08/19/20 03:25 Sputum Culture - Preliminary Sputum - Endotracheal Tube Aspirate 08/19/20 11:39 Blood Culture - Preliminary Blood NEGATIVE TO DATE 08/19/20 02:17 Urine Culture - Final Urine,Clean Catch 08/19/20 02:39 Blood Culture - Preliminary Blood NEGATIVE TO DATE A&P Assessment and plan (1) ARDS (adult respiratory distress syndrome): Acute hypoxic hypercapnic respiratory failure 2/2 Severe ARDS 2/2 to COVID PNA/Bacterial PNA/HFPEF exacerbation. Not a Candidate for REMDESVIR Dure to Renal dysfunction. On Dexamaethasone 6 mg I.V Daily Ascorbic Acid ZINC DUO Nebs Pulmonary Toilet Daily ABG Daily xray chest Blood culture : Negative Sputum Culture :Negative Urine culture :Negative Urine Legionella :Negative Urine bacterial antigen: Negative Lactic acid:Nl Procal :Normal Currently on fentayl,versed,Propofol,Precedex Currently on Nimbus Continue Vancomycin,Imipenam,Levofloxacin DC Azithromycin On Bumex 2mg q12 On Metolazone 5 mg po daily Daily I/O Daily weight Status: Acute (2) Acute respiratory failure with hypoxia and hypercapnia: PLan 1 Status: Acute (3) Sepsis: Status: Acute (4) Pneumonia due to 2019-nCoV: Status: Acute (5) CHF (congestive heart failure), NYHA class III: Status: Acute Qualifiers: Congestive heart failure chronicity: chronic Congestive heart failure type: diastolic Qualified Code(s): I50.32 - Chronic diastolic (congestive) heart failure (6) Acute exacerbation of CHF (congestive heart failure): Status: Acute (7) KAYLEEN (acute kidney injury): Status: Acute (8) Hyperkalemia: Status: Acute (9) Mixed acid base balance disorder: Predominantly metabolic 2/2 ARF Currently on Bicarb Drip. @ 50 cc/hr Status: Acute (10) Anemia: Status: Acute Additional A&P Information Acute hypoxic hypercapnic respiratory failure: Requiring mechanical ventilation Patient had loss of pulse enroute to the hospital, achieved ROSC after 2 minutes of chest compressions, reportedly he did not get any IV medications At the time of arrival in the ER he was intubated his systolic blood pressure was in 140s heart rate 80s, he was intubated because of obtunded state and agonal breathing Currently patient is intubated and sedated with fentanyl and propofol, fentanyl rate 50, propofol 45 Normal hemodynamic Chest x-ray consistent with COVID-19 pneumonia and bilateral vascular congestion Considering high D-dimer I would start patient on heparin drip, most likely cause of PEA is pulmonary embolism versus severe hypoxia I would hold off on antibiotics, would follow with procalcitonin Repeat blood gas in half an hour Mixed metabolic and respiratory acidosis High lactic acidemia suspected after 2 minutes of cardiac arrest We will follow-up on procalcitonin before initiating broad-spectrum antibiotics COVID-19 pneumonia: Contracted 4 days ago, I will start him on Decadron and for hyperglycemia with use sliding scale Accu-Cheks every 6 hours Acute on chronic renal disease stage IV This most likely is cardiorenal as patient has signs of fluid overload, BNP 10,000 I would keep him on Bumex 1 mg IV twice a day Patient has history of left partial nephrectomy for renal cell cancer, if creatinine is worsening would recommend nephro consult Hyperkalemia: I would give him calcium gluconate and Kayexalate Patient does have history of nephrotic syndrome proteinuria noted Acute CHF exacerbation Grade 1 diastolic dysfunction EF 56% Currently on Bumex 1 mg IV every 12 Clinical signs of fluid overload with generalized anasarca with underlying nephrotic syndrome EKG not showing any ischemic or infarctive change, serial troponin and EKG Full code Would start tube feeding at lower rate DVT prophylaxis not needed currently on heparin gtt Guarded prognosis Attestations Medical Necessity Statement*: Patient needs to be in hospital for the management of Severe ARDS 2/2 COVID PNA/Sepsis/ Coding Level of Care Code Acute Environmental Remediation Engineer for [facility] Fwd Exam Expanded Problem Focused Diagnoses ARDS (adult respiratory distress syndrome) J80 Acute respiratory failure with hypoxia and hypercapnia J96.01; J96.02 Sepsis A41.9 Pneumonia due to 2019-nCoV U07.1; J12.89 CHF (congestive heart failure), NYHA class III I50.32 Congestive heart failure chronicity: chronic Congestive heart failure type: diastolic Acute exacerbation of CHF (congestive heart failure) I50.9 KAYLEEN (acute kidney injury) N17.9 Hyperkalemia E87.5 Mixed acid base balance disorder E87.4 Anemia D64.9
[2020-08-21] MEDS: carvedilol 25 mg Tablet 12.5 MG PO (09:27)
[2020-08-21] MEDS: aspirin 81 mg EC Tablet PO (09:28)
[2020-08-21] MEDS: metOLazone 5 MG Tablet PO (09:28)
[2020-08-21] MEDS: bumetanide 0.25 mg/mL SDV 10 mL 2 MG IV ×3 (09:29→23:39)
[2020-08-21] MEDS: cisatracurium 100 MG in sodium chloride 0.9% 50 ML IV (09:33)
--- NOTE | 2020-08-21 09:37 | P.PN_ITS ---
Subjective Subjective: Interval history: remains intubated Medications: Reviewed: Yes Vitals/I&O/Wt Last Vital Signs Temp 98.8 F 08/21/20 04:55 Pulse 74 08/21/20 08:05 Resp 18 08/21/20 08:05 BP 153/82 08/21/20 06:30 Pulse Ox 90 08/21/20 08:05 08/20/20 08/21/20 08/21/20 22:59 06:59 14:59 Intake Total 2054.374 / 2935.957 726.458 / 3662.415 47.808 / 47.808 Output Total 300 / 950 2400 / 3350 Balance 1754.374 / 1985.957 -1673.542 / 312.415 47.808 / 47.808 Physical Exam Urinary Catheter Management^: Melgar: Cath Placed During This Visit: yes Reason for Continuing Indwelling Catheter: Accurate Measurement of Urinary Output in Critically Ill Patients Urinary Catheter Date of Insertion: 08/19/20 Urinary Catheter Time of Insertion: 02:27 Data : 08/21/20 03:13 08/21/20 03:13 Other Labs: LFTs normal, albumin 2. Reagan Ca 9.7, Mg 2, vanco trough 11.7 Micro: Microbiology 08/21/20 06:00 Legionella Urinary Antigen - Final Urine Catheterized 08/21/20 06:00 Bacterial Antigens - Final Urine,Voided 08/19/20 03:25 Sputum Culture - Preliminary Sputum - Endotracheal Tube Aspirate 08/19/20 11:39 Blood Culture - Preliminary Blood NEGATIVE TO DATE 08/19/20 02:17 Urine Culture - Final Urine,Clean Catch CXR: Radiologist's impression: 1. No change in cardiomegaly and dense pulmonary opacities. 2. Endotracheal tube and nasogastric tube are in good position. ABG Interpretation 1: 7.28/44/70 60%, +8 peep A&P Additional A&P Information 1. Acute kidney injury, good urine output, I/O neg 2. Chronic kidney disease with baseline serum Cr around 2.5 mg/dL, likely due to diabetic nephropathy 3. VDRF due to COVID pneumonia and CHF 4. Combination metabolic (renal failure, sepsis) and respiratory acidosis 5. Hyperkalemia, resolved Recommend: continue bumex 2 mg IV Q12, continue IV sodium bicarbonate [facility] critically ill, ICU Time Spent in Patient Care: 16 - 35 minutes Coding Level of Care Code Acute Director Of Marketing Operations for Patricia Reid
[2020-08-21 11:39] LABS: Glucose Point of Care 183 mg/dL (70-110)
[2020-08-21 12:06] LABS: Basophils % 0.1 %; Hematocrit 34.7 % (42.0-52.0); Hemoglobin 11.5 g/dL (11.7-16.6); Lymphocytes # 0.2 10^3/uL (0.8-4.8); Lymphocytes % 1.3 %; Mean Corpuscular HGB Conc 33.1 g/dL (30.0-36.0); Mean Corpuscular Hemoglobin 27.8 pg (28.0-34.0); Mean Corpuscular Volume 83.8 fL (80-94); Mean Platelet Volume 10.5 fL (7.4-10.4); Monocytes # 0.4 10^3/uL (0.2-0.9); Monocytes % 3.1 %; Neutrophils # 10.52 10^3/uL (1.8-7.7); Neutrophils % 94.2 %; Nucleated Red Blood Cells % 0.2 %; Platelet Count 216 10^3/cmm (130-400); Red Blood Count 4.14 10^6/uL (4.1-5.3); Red Cell Distribution Width 14.5 % (12.1-15.1); White Blood Count 11.2 10^3/uL (4.0-10.0)
[2020-08-21 12:25] LABS: Calcium 8.1 mg/dL (8.5-10.5); Carbon Dioxide 22 mmol/L (22-29); Chloride 101 mmol/L (98-107); Glomerular Filtration Rate 15.1 mL/min (90-130); Glucose 191 mg/dL (65-115); Osmolality Calculated 324 mOsm/kg (285-295); Sodium 137 mmol/L (136-145)
[2020-08-21 12:32] LABS: Blood Urea Nitrogen 109 mg/dL (6-20)
[2020-08-21] MEDS: vancomycin 1,500 MG/300 ML PIGGYBACK 200 MG IV (15:00)
[2020-08-21] MEDS: sodium bicarbonate 150 MEQ in dextrose 5% 1,000 ML 50 MEQ IV (15:00)
[2020-08-21 17:27] LABS: Glucose Point of Care 150 mg/dL (70-110)
[2020-08-21] MEDS: carvedilol 6.25 mg Tablet PO (19:20)
--- NOTE | 2020-08-21 19:49 | PC.NURSE ---
BIS 0700 38 0800 37 0900 41 1000 40 1100 40 1200 52 1300 39 1400 38 1500 42 1600 36 1700 40 1800 42 Train of Four 0700 2/4 0800 2/4 0900 3/4 1000 3/4 1100 3/4 1200 3/4 1300 2//4 1400 2/4 1500 2/4 1600 2/4 1700 2/4 1800 2/4
[2020-08-21] MEDS: propofol 1,000 MG/100 ML INJ 29.9 MG IV ×2 (19:53→23:39)
--- NOTE | 2020-08-21 19:53 | PC.NURSE ---
0820 Dr. Freeman at bedside. Orders to turn the Nimbex gtt off for a trial to see if patient will tolerate it. 0840 Nimbex gtt turned back on d/t increased pressures on ventilator. Dr. Freeman notified. [address] Freeman, updated on patient's status. 1120 Rounded with tele nephrology, Dr. Dumont, discussed lab results, potassium level, and Vanc level. Orders for BMP. [address] Freeman. Orders to decrease Coreg, and transition patient from Nimbex to Precedex over night. Notify doctor of elevated blood pressure.
[2020-08-21] MEDS: dexmedetomidine 400 MCG in sodium chloride 0.9% (100 ml) 100 ML IV (20:53)
[2020-08-21 21:29] LABS: Glucose Point of Care 140 mg/dL (70-110)
[2020-08-21] MEDS: artificial tears Op Soln 15 mL Btl 1 DROP EYE-BOTH (21:38)
[2020-08-22] VITALS (51 sets, daily range): BP systolic 115–198; BP diastolic 68–131; PULSE 62–81; RESP 16–28; TEMP 37.2–37.3; O2SAT 85–96
[2020-08-22] MEDS: ipratropium-albuterol 3 mL Neb INHALATION ×7 (00:03→23:34)
[2020-08-22] MEDS: propofol 1,000 MG/100 ML INJ 37.4 MG IV ×2 (03:34→23:56)
[2020-08-22 04:20] LABS: Basophils % 0.1 %; Eosinophils # 0.1 10^3/uL (0.0-0.8); Eosinophils % 0.9 %; Hematocrit 35.9 % (42.0-52.0); Hemoglobin 11.2 g/dL (11.7-16.6); Lymphocytes # 0.6 10^3/uL (0.8-4.8); Lymphocytes % 6.5 %; Mean Corpuscular HGB Conc 31.2 g/dL (30.0-36.0); Mean Corpuscular Volume 86.5 fL (80-94); Mean Platelet Volume 10.3 fL (7.4-10.4); Monocytes # 0.4 10^3/uL (0.2-0.9); Monocytes % 4.4 %; Neutrophils # 7.72 10^3/uL (1.8-7.7); Neutrophils % 86.6 %; Nucleated Red Blood Cells % 0.4 %; Platelet Count 203 10^3/cmm (130-400); Red Blood Count 4.15 10^6/uL (4.1-5.3); Red Cell Distribution Width 14.9 % (12.1-15.1); White Blood Count 8.9 10^3/uL (4.0-10.0)
[2020-08-22 04:32] LABS: ABG PCO2 42.4 mmHg (35-45); ABG PH Result 7.31 (7.35-7.45); Arterial Blood Gas Hematocrit 36.2 % (42-52); Base Excess ABG -4.6 mmol/L (-2.0-2.0); Blood Gas Allen Test Pos; Blood Gas Sample Type Arterial; Carboxyhemoglobin < 0.0 %THgb (0.4-20.1); HCO3 ABG 21.5 mmol/L (22-26); HGB O2 Sat 87.5 % (95-100); Ionized Calcium Level - ABG 1.1 mmol/L (1.1-1.4); Methemoglobin 0.9 % (0.4-1.5); Oxygen Saturation ABG 88.1; PO2 ABG 61.5 mmHg (80.0-100.0); Potassium Level - ABG 4.5 mmol/L (3.5-5.0); Total Hemoglobin 11.8 g/dL (14-18)
[2020-08-22 04:34] LABS: Alveolar-Arterial Oxygen Gradi 40.8 mmHg (5-10); Blood Gas Operator Identificat ED; Blood Gas Sample Site Radial, right; Oxygen Device VENT
--- NOTE | 2020-08-22 04:47 | PC.NURSE ---
0100 Pt off Nimbex gtt , retraction noted to chest, shallow asynchronous respirations decreased O2 sats unable to tolerate weaning of Nimbex gtt; restarted will monitor
[2020-08-22 04:53] LABS: Alanine Aminotransferase 14 U/L (0-41); Albumin Level 2.3 g/dL (3.5-5.2); Alkaline Phosphatase 61 IU/L (40-130); Calcium 8.2 mg/dL (8.5-10.5); Carbon Dioxide 23 mmol/L (22-29); Chloride 103 mmol/L (98-107); Ferritin 468 ng/mL (30-400); Glomerular Filtration Rate 14.7 mL/min (90-130); Glucose 108 mg/dL (65-115); Magnesium 1.8 mg/dL (1.7-2.3); Osmolality Calculated 329 mOsm/kg (285-295); Sodium 142 mmol/L (136-145); Total Bilirubin 0.2 mg/dL (0.15-1.2)
[2020-08-22 04:57] LABS: Anion Gap 20.9 (5-19); Aspartate Amino Transferase 11 U/L (0-40); Potassium 4.9 mmol/L (3.5-5.1)
[2020-08-22 04:58] LABS: Blood Urea Nitrogen 108 mg/dL (6-20)
[2020-08-22] MEDS: cisatracurium 100 MG in sodium chloride 0.9% 50 ML IV (04:58)
[2020-08-22] MEDS: dexamethasone 4 mg/mL INJ 6 MG IVP (04:58)
[2020-08-22 05:08] LABS: D Dimer 1.88 ug/mIFEU (0-0.59)
[2020-08-22] MEDS: propofol 1,000 MG/100 ML INJ 33.7 MG IV ×5 (06:25→20:57)
--- NOTE | 2020-08-22 07:30 | P.PN_ITS ---
Subjective Subjective: Interval history: Mr.Mayo Barnard is intubated,sedated and paralysed. He has been fighting vent resulting in severe airway flow obstruction and severe ventilator dyssynchrony.He failed to respond to maximum sedation hence the need to paralyse arised.Post paralysis he is on PRVC mode with Tv of :450 cc, r/r : 16 ,PEEP:10, FIO2: 60 % PIP:23, Ppal:23, I time: 1.3, sensitivity : 2 , Lung compliance 39, Driving pressure ( Pleatue -PEEP: 13 ). The aim is to keep Driving Pressure below or around 14 with pleateu pressure <30. Aim is to facilitate dry lung ventilation and preserve the baby lung. He has remained afebrile, and has maintained a fairly good MAP without any inotr opic or vasopressor support. Paralytic weaning was again attempted today,and Started on Precedex along with continuing other sedatives ( versed,fentanyl,propofol ). GCS :off sedation : 7T Medications: Reviewed: Yes Vitals/I&O/Wt Last Vital Signs Temp 98.9 F 08/22/20 04:00 Pulse 78 08/22/20 07:00 Resp 16 08/22/20 07:00 BP 164/85 08/22/20 07:00 Pulse Ox 88 L 08/22/20 07:00 08/21/20 08/22/20 08/22/20 22:59 06:59 14:59 Intake Total 1569.334 / 2203.176 409.305 / 2612.481 Output Total 1800 / 2600 1300 / 3900 Balance -230.666 / -396.824 -890.695 / -1287.519 Physical Exam HENMT: COMMON NORMALS: normocephalic and atraumatic HEAD & SCALP: normocephalic and atraumatic Chest: COMMONS NORMALS: normal inspection of the chest CHEST: Yes Symmetrical chest wall rise Resp: OTHER: Diminished Breath sound B/L Cardio: COMMON NORMALS: regular rate, regular rhythm, S1 normal heart sound present, S2 normal heart sound present, No gallops present (Cardio), No murmurs present (Cardio), No rub (Cardio) and Peripheral pulses 2+ throughout RATE: regular rate RHYTHM: regular rhythm HEART SOUNDS: S1 normal heart sound present and S2 normal heart sound present PERIPHERAL PULSES: Peripheral pulses 2+ throughout GI: AUSCULTATION: Yes normoactive bowel sounds RECTAL EXAM: Yes deferred OTHER: Obese adomen. : OTHER: Scrotal edema present Extremity: NARRATIVE EXTREMITY EXAM: 1 + B/L Pitting edema with evidence of statsis dermatitis Urinary Catheter Management^: Melgar: Cath Placed During This Visit: yes Reason for Continuing Indwelling Catheter: Accurate Measurement of Urinary Output in Critically Ill Patients Urinary Catheter Date of Insertion: 08/19/20 Urinary Catheter Time of Insertion: 02:27 Data : 08/22/20 04:00 08/22/20 04:00 Micro: Microbiology 08/19/20 03:25 Sputum Culture - Final Sputum - Endotracheal Tube Aspirate 08/21/20 06:00 Legionella Urinary Antigen - Final Urine Catheterized 08/21/20 06:00 Bacterial Antigens - Final Urine,Voided A&P Assessment and plan (1) ARDS (adult respiratory distress syndrome): Acute hypoxic hypercapnic respiratory failure 2/2 Severe ARDS 2/2 to COVID PNA/Bacterial PNA/HFPEF exacerbation. Not a Candidate for REMDESVIR Dure to Renal dysfunction. On Dexamaethasone 6 mg I.V Daily Ascorbic Acid ZINC DUO Nebs Pulmonary Toilet ABG: Ph: 7.32,Pc02:41,PO2:71 , FIO2: 65 % P/F :71/0.65 Xray chest : 05/21 : Bilateral interstitial infiltrates. These have improved in the right lung CTA OR V/Q Scan could not be done C.T head without Contrast could not be done Lower extrmity doppler vein b/l:No DVT MRSA PCR:Pending Blood culture : Negative Sputum Culture :Negative Urine culture :Negative Urine Legionella :Negative Urine bacterial antigen: Negative Lactic acid:Nl Procal :Normal Currently on fentayl,versed,Propofol,Precedex Nimbus titrated off Continue Vancomycin,Imipenam,Levofloxacin DC Azithromycin On Bumex 2mg q12 On Metolazone 5 mg po daily Daily I/O Daily weight Status: Acute (2) Acute respiratory failure with hypoxia and hypercapnia: PLan 1 Status: Acute (3) Sepsis: Plan as 1 Status: Acute (4) Pneumonia due to 2019-nCoV: Status: Acute (5) Acute exacerbation of CHF (congestive heart failure): Status: Acute (6) CHF (congestive heart failure), NYHA class III: Status: Acute Qualifiers: Congestive heart failure type: diastolic Congestive heart failure chronicity: chronic Qualified Code(s): I50.32 - Chronic diastolic (congestive) heart failure (7) Cardiac arrest: 1 Cycle CPR No Epi Given No shock Delivered No hypothermia protocol initiated Status: Acute (8) Brain anoxic injury: Anoxic Brain Injury s/p cardiac arrest Status: Acute (9) KAYLEEN (acute kidney injury): KAYLEEN on worseing CKD IV 2/2 CRS No dialysis for now Continue I.V Diuresis I/O Charting Status: Acute (10) Hyperkalemia: Resolved Status: Acute (11) Mixed acid base balance disorder: Predominantly metabolic 2/2 ARF Currently on Bicarb Drip. @ 50 cc/hr Status: Acute (12) Anemia: Status: Acute Additional A&P Information Acute hypoxic hypercapnic respiratory failure: Requiring mechanical ventilation Patient had loss of pulse enroute to the hospital, achieved ROSC after 2 minutes of chest compressions, reportedly he did not get any IV medications At the time of arrival in the ER he was intubated his systolic blood pressure was in 140s heart rate 80s, he was intubated because of obtunded state and agonal breathing Currently patient is intubated and sedated with fentanyl and propofol, fentanyl rate 50, propofol 45 Normal hemodynamic Chest x-ray consistent with COVID-19 pneumonia and bilateral vascular congestion Considering high D-dimer I would start patient on heparin drip, most likely cause of PEA is pulmonary embolism versus severe hypoxia I would hold off on antibiotics, would follow with procalcitonin Repeat blood gas in half an hour Mixed metabolic and respiratory acidosis High lactic acidemia suspected after 2 minutes of cardiac arrest We will follow-up on procalcitonin before initiating broad-spectrum antibiotics COVID-19 pneumonia: Contracted 4 days ago, I will start him on Decadron and for hyperglycemia with use sliding scale Accu-Cheks every 6 hours Acute on chronic renal disease stage IV This most likely is cardiorenal as patient has signs of fluid overload, BNP 10,000 I would keep him on Bumex 1 mg IV twice a day Patient has history of left partial nephrectomy for renal cell cancer, if c reatinine is worsening would recommend nephro consult Hyperkalemia: I would give him calcium gluconate and Kayexalate Patient does have history of nephrotic syndrome proteinuria noted Acute CHF exacerbation Grade 1 diastolic dysfunction EF 56% Currently on Bumex 1 mg IV every 12 Clinical signs of fluid overload with generalized anasarca with underlying nephrotic syndrome EKG not showing any ischemic or infarctive change, serial troponin and EKG Full code Would start tube feeding at lower rate DVT prophylaxis not needed currently on heparin gtt Guarded prognosis Attestations Medical Necessity Statement*: Patient needs to be in hospital for the management of R/F Coding Level of Care Code Acute Care Assistant for g Fwd Diagnoses ARDS (adult respiratory distress syndrome) J80 Acute respiratory failure with hypoxia and hypercapnia J96.01; J96.02 Sepsis A41.9 Pneumonia due to 2019-nCoV U07.1; J12.89 Acute exacerbation of CHF (congestive heart failure) I50.9 CHF (congestive heart failure), NYHA class III I50.32 Congestive heart failure type: diastolic Congestive heart failure chronicity: chronic Cardiac arrest I46.9 Brain anoxic injury G93.1 KAYLEEN (acute kidney injury) N17.9 Hyperkalemia E87.5 Mixed acid base balance disorder E87.4 Anemia D64.9
[2020-08-22 08:25] LABS: Glucose Point of Care 125 mg/dL (70-110)
[2020-08-22] MEDS: apixaban 5 mg Tablet 2.5 MG PO ×2 (09:44→17:55)
[2020-08-22] MEDS: carvedilol 6.25 mg Tablet PO ×2 (09:44→17:56)
[2020-08-22] MEDS: metOLazone 5 MG Tablet PO (09:44)
[2020-08-22] MEDS: bumetanide 0.25 mg/mL SDV 10 mL 2 MG IV ×2 (09:44→23:01)
[2020-08-22] MEDS: aspirin 81 mg EC Tablet PO (09:45)
[2020-08-22] MEDS: hyDRALAzine 50 mg Tablet PO ×3 (09:46→20:57)
--- NOTE | 2020-08-22 09:53 | P.PN_ITS ---
Subjective Medications: Reviewed: Yes Vitals/I&O/Wt Last Vital Signs Temp 98.9 F 08/22/20 04:00 Pulse 79 08/22/20 08:04 Resp 18 08/22/20 08:58 BP 164/85 08/22/20 07:00 Pulse Ox 87 L 08/22/20 08:04 08/21/20 08/22/20 08/22/20 22:59 06:59 14:59 Intake Total 1569.334 / 2203.176 458.815 / 2661.991 124.105 / 124.105 Output Total 1800 / 2600 1300 / 3900 Balance -230.666 / -396.824 -841.185 / -1238.009 124.105 / 124.105 Physical Exam Urinary Catheter Management^: Melgar: Cath Placed During This Visit: yes Reason for Continuing Indwelling Catheter: Accurate Measurement of Urinary Output in Critically Ill Patients Urinary Catheter Date of Insertion: 08/19/20 Urinary Catheter Time of Insertion: 02:27 Data : 08/22/20 04:00 08/22/20 04:00 Other Labs: albumin 2.3, kena Ca 9.4, Mg 1.8, LFTs normal Micro: Microbiology 08/19/20 03:25 Sputum Culture - Final Sputum - Endotracheal Tube Aspirate 08/21/20 06:00 Legionella Urinary Antigen - Final Urine Catheterized 08/21/20 06:00 Bacterial Antigens - Final Urine,Voided CXR: Radiologist's impression: 1. Bilateral interstitial infiltrates. These have improved in the right lung since previous study. 2. Worsening left lower lobe atelectasis. A&P Additional A&P Information 1. Acute kidney injury, good urine output, I/O neg 2. Chronic kidney disease with baseline serum Cr around 2.5 mg/dL, likely due to diabetic nephropathy 3. VDRF due to COVID pneumonia and CHF 4. Combination metabolic (renal failure, sepsis) and respiratory acidosis Recommend: continue bumex 2 mg IV Q12, continue IV sodium bicarbonate infusion Attestations Medical Necessity Statement*: critically ill in ICU Time Spent in Patient Care: 16 - 35 minutes Coding Level of Care Code Acute Branch Controller for Patricia Reid
[2020-08-22] MEDS: dexmedetomidine 400 MCG in sodium chloride 0.9% (100 ml) 100 ML 6.5 MCG IV (12:53)
[2020-08-22] MEDS: famotidine 20 mg/2 mL INJ IVP (13:14)
[2020-08-22 13:20] LABS: Glucose Point of Care 168 mg/dL (70-110)
[2020-08-22 15:06] LABS: ABG PCO2 41.3 mmHg (35-45); ABG PH Result 7.32 (7.35-7.45); Alveolar-Arterial Oxygen Gradi 44.1 mmHg (5-10); Arterial Blood Gas Hematocrit 51.5 % (42-52); Base Excess ABG -4.9 mmol/L (-2.0-2.0); Blood Gas Allen Test Pos; Blood Gas Sample Site Radial, right; Blood Gas Sample Type Arterial; Blood Gas Tidal Volume 0.48; Carboxyhemoglobin < 0.0 %THgb (0.4-20.1); HCO3 ABG 21.1 mmol/L (22-26); HGB O2 Sat 89.8 % (95-100); Methemoglobin 1.1 % (0.4-1.5); Oxygen Device VENT; Oxygen Saturation ABG 90.5; PO2 ABG 71.9 mmHg (80.0-100.0); Potassium Level - ABG 4.9 mmol/L (3.5-5.0); Total Hemoglobin 16.8 g/dL (14-18)
[2020-08-22] MEDS: NIFEdipine ER (24 hr) 30 mg Tablet 60 MG PO (15:53)
[2020-08-22] MEDS: vancomycin 1,500 MG/300 ML PIGGYBACK 200 MG IV (15:54)
[2020-08-22] MEDS: sodium bicarbonate 150 MEQ in dextrose 5% 1,000 ML 50 MEQ IV (15:54)
[2020-08-22 17:12] LABS: Glucose Point of Care 156 mg/dL (70-110)
[2020-08-22] MEDS: levofloxacin-dextrose 5 % 500 MG/100 ML PREMIX 100 MG IV (20:57)
[2020-08-22] MEDS: artificial tears Op Soln 15 mL Btl 1 DROP EYE-BOTH (20:59)
[2020-08-22 21:23] LABS: Glucose Point of Care 132 mg/dL (70-110)
[2020-08-22] MEDS: dexmedetomidine 400 MCG in sodium chloride 0.9% (100 ml) 100 ML 19.5 MCG IV (22:09)
[2020-08-23] VITALS (43 sets, daily range): BP systolic 120–171; BP diastolic 67–100; PULSE 60–78; RESP 16–21; TEMP 37.3–37.4; O2SAT 88–98
[2020-08-23] MEDS: hyDRALAzine 20 mg/mL INJ 1 mL 10 MG IVP (01:00)
[2020-08-23] MEDS: dexmedetomidine 400 MCG in sodium chloride 0.9% (100 ml) 100 ML 22.7 MCG IV ×4 (02:25→15:45)
[2020-08-23] MEDS: propofol 1,000 MG/100 ML INJ 37.4 MG IV ×6 (02:25→17:52)
[2020-08-23] MEDS: ipratropium-albuterol 3 mL Neb INHALATION ×6 (03:23→23:58)
[2020-08-23 03:41] LABS: ABG PCO2 42.1 mmHg (35-45); ABG PH Result 7.32 (7.35-7.45); Alveolar-Arterial Oxygen Gradi 32.3 mmHg (5-10); Arterial Blood Gas Hematocrit 35.3 % (42-52); Base Excess ABG -4.4 mmol/L (-2.0-2.0); Blood Gas Allen Test Pos; Blood Gas Sample Site Radial, right; Blood Gas Sample Type Arterial; Blood Gas Tidal Volume 0.48; Carboxyhemoglobin < 0.0 %THgb (0.4-20.1); HCO3 ABG 21.6 mmol/L (22-26); Ionized Calcium Level - ABG 1.1 mmol/L (1.1-1.4); Methemoglobin 1.4 % (0.4-1.5); Oxygen Device VENT; Oxygen Saturation ABG 94.1; PO2 ABG 88.1 mmHg (80.0-100.0); Potassium Level - ABG 4.6 mmol/L (3.5-5.0); Total Hemoglobin 11.5 g/dL (14-18)
[2020-08-23 04:23] LABS: Basophils % 0.1 %; Eosinophils # 0.3 10^3/uL (0.0-0.8); Eosinophils % 3.2 %; Hematocrit 35.7 % (42.0-52.0); Hemoglobin 11.1 g/dL (11.7-16.6); Lymphocytes # 0.7 10^3/uL (0.8-4.8); Lymphocytes % 7.3 %; Mean Corpuscular HGB Conc 31.1 g/dL (30.0-36.0); Mean Corpuscular Volume 86.9 fL (80-94); Mean Platelet Volume 10.4 fL (7.4-10.4); Monocytes # 0.5 10^3/uL (0.2-0.9); Monocytes % 5.7 %; Neutrophils # 7.26 10^3/uL (1.8-7.7); Neutrophils % 81.8 %; Nucleated Red Blood Cells % 0.2 %; Platelet Count 212 10^3/cmm (130-400); Red Blood Count 4.11 10^6/uL (4.1-5.3); Red Cell Distribution Width 14.8 % (12.1-15.1); White Blood Count 8.9 10^3/uL (4.0-10.0)
[2020-08-23 04:41] LABS: Ferritin 608 ng/mL (30-400)
[2020-08-23] MEDS: dexamethasone 4 mg/mL INJ 6 MG IVP (05:09)
[2020-08-23 05:24] LABS: D Dimer 2.08 ug/mIFEU (0-0.59)
[2020-08-23 05:55] LABS: Erythrocyte Sedimentation Rate 108 mm/hr (0-10)
--- NOTE | 2020-08-23 06:00 | XR_ITS ---
WS: [id number] Exam: XR chest 1V portable [id number] Date/Time of Exam: 08/23/2020 6:00 AM Reason For Exam: pna Comparison 08/21/2020. Increasing widespread bilateral pulmonary infiltrates since previous study. No pneumothorax or pleura l effusion. ET tube is in place ending 4 cm above the adrianna in good position. An NG tube extends bel ow the diaphragm but the tip is not visible. Cardiomediastinal structures are unremarkable for portab le technique. XR/XR chest 1V portable [id number] IMPRESSION: 1. Widespread increasing bilateral pulmonary infiltrates since previous study. 2. ET tube in satisfactory position.
[2020-08-23 06:47] LABS: C Reactive Protein 132.1 mg/L (0.0-4.9)
--- NOTE | 2020-08-23 07:14 | PC.NURSE ---
0630 wasted Versed gtt 40cc witnessed by aaron felix RN
[2020-08-23 08:18] LABS: Glucose Point of Care 143 mg/dL (70-110)
[2020-08-23] MEDS: apixaban 5 mg Tablet 2.5 MG PO (08:55)
[2020-08-23] MEDS: hyDRALAzine 50 mg Tablet PO ×3 (08:55→22:00)
[2020-08-23 08:56] LABS: Alanine Aminotransferase 11 U/L (0-41); Albumin Level 2.3 g/dL (3.5-5.2); Alkaline Phosphatase 59 IU/L (40-130); Calcium 8.3 mg/dL (8.5-10.5); Carbon Dioxide 21 mmol/L (22-29); Chloride 103 mmol/L (98-107); Glomerular Filtration Rate 13.9 mL/min (90-130); Glucose 154 mg/dL (65-115); Osmolality Calculated 332 mOsm/kg (285-295); Sodium 142 mmol/L (136-145); Total Bilirubin 0.3 mg/dL (0.15-1.2)
[2020-08-23] MEDS: metOLazone 5 MG Tablet PO (08:56)
[2020-08-23] MEDS: carvedilol 6.25 mg Tablet PO ×2 (08:56→17:17)
[2020-08-23] MEDS: bumetanide 0.25 mg/mL SDV 10 mL 2 MG IV (08:56)
[2020-08-23] MEDS: aspirin 81 mg EC Tablet PO (08:56)
[2020-08-23] MEDS: NIFEdipine ER (24 hr) 30 mg Tablet 60 MG PO (08:56)
[2020-08-23 09:14] LABS: Anion Gap 23.3 (5-19); Aspartate Amino Transferase 15 U/L (0-40); Blood Urea Nitrogen 111 mg/dL (6-20); Potassium 5.3 mmol/L (3.5-5.1)
--- NOTE | 2020-08-23 11:51 | PM.PN ---
Subjective Subjective: Interval history: Remains intubated, mechanically ventilated. Vent settings remain stable, FiO2 45% and PEEP of 10. Hemodynamics also remained stable, on occasion he is hypertensive if anything. Currently on combination of dextrose infusion, diuretics including Bumex and metolazone. Robust urine output yesterday of 3675 mL, high intake 3467 mL. Vitals/I&O/Wt Last Vital Signs Temp 99.3 F 08/23/20 04:00 Pulse 66 08/23/20 11:23 Resp 21 H 08/23/20 11:31 BP 150/92 08/23/20 06:00 Pulse Ox 94 08/23/20 11:23 08/22/20 08/23/20 08/23/20 22:59 06:59 14:59 Intake Total 1077.347 / 2728.410 580.139 / 3308.549 383.163 / 383.163 Output Total 1875 / 1875 1800 / 3675 Balance -797.653 / 853.410 -1219.861 / -366.451 383.163 / 383.163 Physical Exam Narrative: EXAM NARRATIVE: Constitutional: sedated on the vent HEENT: Wet mucosa, no jvp, non icteric Lungs: Bilaterally clear without discernible wheeze, rales in all lung zones CVS: S1 S2, no murmurs Abdo: Soft, BS ok Ext 4: Global edema, peripheral perfusion with no cyanosis Neurological: sedated Urinary Catheter Management^: Melgar: Cath Placed During This Visit: yes Reason for Continuing Indwelling Catheter: Accurate Measurement of Urinary Output in Critically Ill Patients Urinary Catheter Date of Insertion: 08/19/20 Urinary Catheter Time of Insertion: 02:27 Data : 08/23/20 03:30 08/23/20 08:25 A&P Additional A&P Information 1. KAYLEEN - Consistent with ATN/Covid nephropathy. BUN/creatinine continue to uptrend, urine output is very good in response to diuretics, clinically well balanced and hence no acute indication for hemodialysis today, however, he is a very high risk for this in the next 24-48 hours. He does remain in negative balance but this is marginal, will ask pharmacy to double concentrate all infusions, will stop bicarb, in an effort to minimize his intake. Avoid usual nephrotoxic agents Strict I's and O's Dose medications for GFR less than 15 2. Vent dependent respiratory failure, Heavy sedation/paralysis noted. Vent settings noted Management per ICU team. Primaxin, Levaquin, Vanco on board Dexamethasone on board 3. Chemistry Mild anion gap metabolic acidosis, otherwise Minor noncritical aberration and needs to be followed. Corrected calcium within normal range. John Peters MD Nephrology [phone] Patient seen and examined via telemedicine, with the assistance of the bedside RN > 25 min spent in evaluation and mgmt of patient Attestations Medical Necessity Statement*: KAYLEEN Coding Level of Care Code Acute Ux Design Manager for Patricia Reid
[2020-08-23 12:17] LABS: Glucose Point of Care 171 mg/dL (70-110)
[2020-08-23] MEDS: famotidine 20 mg/2 mL INJ IVP ×2 (13:01)
[2020-08-23 14:55] LABS: Globulin 3.9 g/dL (1.3-4.6); Total Protein 6.2 g/dL (6.6-8.7)
--- NOTE | 2020-08-23 15:21 | PM.PN ---
Subjective Subjective: Interval history: Hospital course, labs and vitals noted. He remains intubated on mechanical ventilation. On examination he is on propofol, fentanyl 100, Precedex 0.7, ventilator settings of FiO2 45% PEEP of 10, tidal volume of 440 though patient continues to have asynchronous breathing with the ventilator. Patient has had more than 2.5 L of urine output since morning. Earlier in the morning bicarb drip was stopped. Have requested a repeat ABG in 1 hour. Because of asynchronous breathing dependent and depending on his body weight has increased his tidal volume to 600 after which patient started having better synchrony with the ventilator. Medications: Reviewed: Yes Vitals/I&O/Wt Last Vital Signs Temp 99.3 F 08/23/20 04:00 Pulse 66 08/23/20 11:23 Resp 16 08/23/20 14:16 BP 150/92 08/23/20 06:00 Pulse Ox 94 08/23/20 11:23 08/23/20 08/23/20 08/23/20 06:59 14:59 22:59 Intake Total 580.139 / 3308.549 413.163 / 413.163 Output Total 1800 / 3675 0 / 0 Balance -1219.861 / -366.451 413.163 / 413.163 Physical Exam Narrative: EXAM NARRATIVE: General: Morbidly obese, intubated, sedated HEENT: PERRLA, pupils bilaterally equal and reactive Chest: Bilateral lower zone decreased breath sounds, bilateral crackles present all over the lung ray with occasional bronchial breath sounds CVS: S1-S2 regular, pansystolic murmur at the apex, no tachycardia, no gallops, no rubs Abdomen: Soft, obese, nontender, no organomegaly, bowel sounds present Neuro: Intubated, sedated Extremities: Bilateral lower limb edema present 1+ up to midcalf Urinary Catheter Management^: Melgar: Cath Placed During This Visit: yes Reason for Continuing Indwelling Catheter: Accurate Measurement of Urinary Output in Critically Ill Patients Urinary Catheter Date of Insertion: 08/19/20 Urinary Catheter Time of Insertion: 02:27 Data : 08/23/20 03:30 08/23/20 08:25 A&P Assessment and plan (1) Cardiac arrest: 1 Cycle CPR No Epi Given No shock Delivered No hypothermia protocol initiated Status: Acute (2) ARDS (adult respiratory distress syndrome): Status: Acute (3) Acute respiratory failure with hypoxia and hypercapnia: Status: Acute (4) Sepsis: Plan as 1 Status: Acute (5) Pneumonia due to 2019-nCoV: Status: Acute (6) Acute exacerbation of CHF (congestive heart failure): Status: Acute (7) CHF (congestive heart failure), NYHA class III: Status: Acute Qualifiers: Congestive heart failure type: diastolic Congestive heart failure chronicity: chronic Qualified Code(s): I50.32 - Chronic diastolic (congestive) heart failure (8) KAYLEEN (acute kidney injury): Status: Acute (9) Hyperkalemia: Insulin 10, D50. Repeat potassium levels in evening. Status: Acute (10) Mixed acid base balance disorder: Predominantly metabolic 2/2 ARF Currently on Bicarb Drip. @ 50 cc/hr Status: Acute (11) Anemia: Status: Acute (12) Brain anoxic injury: Anoxic Brain Injury s/p cardiac arrest. We will continue to monitor brain functions daily with sedation vacation. Status: Acute Additional A&P Information Hypoxic respiratory failure/ARDS secondary to COVID-19 pneumonia with most likely superadded bacterial infection: Post cardiac arrest: Continues to remain mechanically intubated. Check sputum culture, procalcitonin, MRSA swab. For now continue with vancomycin and imipenem. Will check Vanco random level. Continue to follow-up with blood culture, urine culture, sputum culture and will de-escalate antibiotics accordingly. Stop Precedex and continue with fentanyl and propofol. Daily sedation vacation. Wean mechanical ventilator as possible. Increase tidal volume to 600 as per the dry body weight. Patient is Covid positive. We will start patient on remdesivir. Most likely will require 5-day course. Patient's creatinine functions are worsening the urine output is good so we will have to continue monitor renal functions. Discussed regarding the same with nephrology. Agreed on starting remdesivir. Continue with dexamethasone 6 mg IV daily. DuoNebs every 4 hours, budesonide twice daily. Vitamin C 1000 mg once a day, zinc. We will try to keep patient as negative as possible. Patient around 1.5 L negative since morning. Last echocardiogram from September 2019 shows grade 1 diastolic dysfunction with 56% EF with moderate MR. As patient is critically ill will repeat echocardiogram. Continue diuretic therapy with Lasix 80 mg IV twice daily. Continue with current dose of metolazone. Appreciate nephrology recommendation. High risk for requiring dialysis in near future. Repeat ABG in 1 hour after ventilator setting and as bicarb drip was stopped earlier in the day today. Nutrition: Patient was on tube feeds till 2 days ago but was stopped for some reason. We will start back on tube feeds from tomorrow morning. Continue with famotidine and GI prophylaxis. Hypertension: Goal blood pressure less than 140/90 mmHg. Continue with current medications including hydralazine 50 mg 3 times daily, Coreg 6.25 mg twice daily, nifedipine 60 mg oral daily. Check iron panel, MRSA swab. Full code Tube feeds from tomorrow. Full dose Lovenox. Severely guarded prognosis. Tried multiple times to speak to the regarding update, starting of remdesivir, high risk of requiring dialysis in near future but could not get in touch. We will try again later. Have left a message on voicemail. Attestations Medical Necessity Statement*: Patient requires further hospitalization for being mechanical ventilator dependent for ARDS secondary to COVID-19 pneumonia, sepsis and CHF exacerbation in setting of worsening KAYLEEN Critical Care Time: Sedation medications, ventilator setting Critical Care Time (min): 70 Coding Level of Care Code Acute Carbon Coater Machine Operator for Chg Fwd Diagnoses Cardiac arrest I46.9 ARDS (adult respiratory distress syndrome) J80 Acute respiratory failure with hypoxia and hypercapnia J96.01; J96.02 Sepsis A41.9 Pneumonia due to 2019-nCoV U07.1; J12.89 Acute exacerbation of CHF (congestive heart failure) I50.9 CHF (congestive heart failure), NYHA class III I50.32 Congestive heart failure type: diastolic Congestive heart failure chronicity: chronic KAYLEEN (acute kidney injury) N17.9 Hyperkalemia E87.5 Mixed acid base balance disorder E87.4 Anemia D64.9 Brain anoxic injury G93.1
--- NOTE | 2020-08-23 15:33 | USCV_ITS ---
Rod Akil Age: 50 Gender: M : 1970 Exam Date: 08/23/2020 17:00 Ordering Phys: Edil Bonner MD Technologist: Lizzy Sullivan Exam Location: [facility] [place] Indication: COVID ICU ON VENT PULHTN BP: 129 / 75 HR: 61 Rhythm: Sinus Technical Quality: Very technically difficult study MEASUREMENTS (Male / Female) Normal Values 2D ECHO LV Diastolic Diameter PLAX 5.2 cm 4.2 - 5.9 / 3.9 - 5.3 cm LV Systolic Diameter PLAX 3.8 cm LV Chamber Size 3.7 cm IVS Diastolic Thickness 1.9 cm 0.6 - 1.0 / 0.6 - 0.9 cm IVS Systolic Thickness 2.3 cm LVPW Diastolic Thickness 1.9 cm 0.6 - 1.0 / 0.6 - 0.9 cm LVPW Systolic Thickness 2.4 cm RV Chamber Size 3.0 cm LVOT Diameter 2.8 cm LV Ejection Fraction 2D Teich 52.8 % LA Diameter 4.4 cm LA Width 3.6 cm LA Height 0.0 cm RA Width 3.5 cm Aorta at Sinotubular Diameter 3.8 cm M-MODE LV Diastolic Diameter MM 4.6 cm 4.2 - 5.9 / 3.9 - 5.3 cm LV Systolic Diameter MM 3.2 cm LV Ejection Fraction MM Teich 59.1 % IVS Diastolic Thickness MM 1.7 cm 0.6 - 1.0 / 0.6 - 0.9 cm IVS Systolic Thickness MM 2.0 cm LVPW Diastolic Thickness MM 1.8 cm 0.6 - 1.0 / 0.6 - 0.9 cm LVPW Systolic Thickness MM 2.4 cm Aortic Annulus Diameter 3.9 cm LA Ao Ratio MM 1.1 MV E Point Septal Separation 1.1 cm DOPPLER AV Peak Velocity 131.0 cm/s LVOT Peak Velocity 68.0 cm/s AV Area Cont Eq vti 3.0 cm squared AV Area Cont Eq pk 3.1 cm squared MV Area PHT 2.8 cm squared MV E' Velocity 52.5 cm/s Mitral E to MV E' Ratio 10.9 Mitral E to LV E' Lateral Ratio 11.7 Mitral E to LV E' Septal Ratio 10.2 TR Peak Velocity 154.5 cm/s TR Peak Gradient 9.5 mmHg TR Mean Velocity 107.6 cm/s TR Mean Gradient 5.0 mmHg TR Velocity Time Integral 42.1 cm TV Peak E Velocity 59.0 cm/s PV Peak Velocity 46.0 cm/s RV Acceleration Time 0.1 s FINDINGS Left Ventricle Technically very difficult study. Limited visualization of cardiac structures. Grossly LV systolic function appears to be normal. Regional wall motion abnormalities cannot be assessed because of limited visualization. Right Ventricle The right ventricle is normal in size and function. Right Atrium The right atrium is normal in size. Left Atrium The left atrium is normal in size. Mitral Valve Structurally normal mitral valve without significant stenosis or prolapse. There is mild mitral regurgitation. Aortic Valve Aortic valve is thickened. No aortic stenosis is seen. There is no aortic regurgitation. Tricuspid Valve Structurally normal tricuspid valve without significant stenosis or regurgitation. Elevated RA pressure. RVSP is 20 to 25 mmHg. Pulmonic Valve Structurally normal pulmonic valve without significant stenosis. There is no pulmonic regurgitation. Pericardium Trivial pericardial effusion is seen. Aorta Mildly dilated aortic root. CONCLUSIONS Technically very limited study. Limited visualization of cardiac structures. LV systolic function is grossly normal. Regional wall motion abnormalities cannot be assessed because of limited visualization. Thickened aortic valve. No significant aortic stenosis or regurgitation is seen. Mild mitral regurgitation. Trivial pericardial effusion is seen. Mildly dilated aortic root. Compared to prior echocardiogram from 10/05/2019, trivial pericardial effusion is seen Erik Arguelles MD (Electronically Signed) Final Date: 25 August 2020 09:58 S
[2020-08-23 15:38] LABS: ABG PCO2 43.4 mmHg (35-45); ABG PH Result 7.32 (7.35-7.45); Alveolar-Arterial Oxygen Gradi 5.1 mmHg (5-10); Arterial Blood Gas Hematocrit 30.4 % (42-52); Base Excess ABG -3.9 mmol/L (-2.0-2.0); Blood Gas Allen Test Pos; Blood Gas Operator Identificat Anonymous; Blood Gas Sample Site Radial, left; Blood Gas Sample Type Arterial; Carboxyhemoglobin 0.2 %THgb (0.4-20.1); HCO3 ABG 22.1 mmol/L (22-26); HGB O2 Sat 83.4 % (95-100); Ionized Calcium Level - ABG 1.1 mmol/L (1.1-1.4); Methemoglobin 1.3 % (0.4-1.5); Oxygen Saturation ABG 84.7; Potassium Level - ABG 4.5 mmol/L (3.5-5.0); Total Hemoglobin 9.9 g/dL (14-18)
[2020-08-23 16:18] LABS: Glucose Point of Care 134 mg/dL (70-110)
[2020-08-23] MEDS: dextrose 50% syringe 50 mL IVP (16:54)
[2020-08-23] MEDS: enoxaparin 120 mg/0.8 mL Syringe SUBCUT (17:15)
[2020-08-23] MEDS: insulin regular-human 10 UNIT in SYRINGE 1 EACH IVP (17:16)
[2020-08-23] MEDS: remdesivir 200 MG in sodium chloride 0.9% (100 ml) 100 ML 100 MG IV (17:17)
[2020-08-23] MEDS: FUROsemide 10 mg/mL SDV 4mL 80 MG IVP (17:17)
[2020-08-23] MEDS: vancomycin 1,500 MG/300 ML PIGGYBACK 200 MG IV (17:18)
--- NOTE | 2020-08-23 18:45 | PC.NURSE ---
Received bedside report on patient from Caitlin SCHERER. Assumed care at this time.
[2020-08-23 19:08] LABS: Total Protein 6.3 g/dL (6.6-8.7)
[2020-08-23 19:23] LABS: Vancomycin Random 30.7 ug/mL (20.0-40.0)
[2020-08-23 19:30] LABS: Procalcitonin 1.36 ng/mL (0-0.5)
[2020-08-23] MEDS: budesonide 0.5 mg/2 mL Neb INHALATION (19:49)
[2020-08-23 19:50] LABS: Iron 26 ug/dL (59-158)
[2020-08-23 19:56] LABS: Percent Saturation 16.3 % (20-50); Total Iron Binding Capacity 159 mcg/dl; Unsaturated Iron Binding 133 ug/dL (112-347)
[2020-08-23] MEDS: artificial tears Op Soln 15 mL Btl 1 DROP EYE-BOTH (22:02)
[2020-08-23] MEDS: dexmedetomidine 400 MCG in sodium chloride 0.9% (100 ml) 100 ML 9.7 MCG IV (22:05)
[2020-08-24] VITALS (34 sets, daily range): BP systolic 160–204; BP diastolic 79–109; PULSE 63–89; RESP 14–28; TEMP 36.8–37; O2SAT 89–95
[2020-08-24] MEDS: propofol 1,000 MG/100 ML INJ 37.4 MG IV ×3 (00:21→07:30)
[2020-08-24] MEDS: famotidine 20 mg/2 mL INJ IVP ×2 (00:21→16:20)
[2020-08-24] MEDS: ipratropium-albuterol 3 mL Neb INHALATION ×6 (03:27→23:44)
[2020-08-24 04:15] LABS: ABG PCO2 40.7 mmHg (35-45); ABG PH Result 7.32 (7.35-7.45); Alveolar-Arterial Oxygen Gradi 26.2 mmHg (5-10); Arterial Blood Gas Hematocrit 35.7 % (42-52); Base Excess ABG -4.8 mmol/L (-2.0-2.0); Blood Gas Allen Test Pos; Blood Gas Operator Identificat ED; Blood Gas Sample Site Radial, left; Blood Gas Sample Type Arterial; Carboxyhemoglobin 0.1 %THgb (0.4-20.1); HGB O2 Sat 88.2 % (95-100); Ionized Calcium Level - ABG 1.1 mmol/L (1.1-1.4); Methemoglobin 1.1 % (0.4-1.5); Oxygen Device VENT; Oxygen Saturation ABG 89.3; PO2 ABG 65.5 mmHg (80.0-100.0); Potassium Level - ABG 4.3 mmol/L (3.5-5.0); Total Hemoglobin 11.7 g/dL (14-18)
[2020-08-24 05:17] LABS: Basophils % 0.1 %; Eosinophils # 0.5 10^3/uL (0.0-0.8); Hematocrit 35.3 % (42.0-52.0); Hemoglobin 11.2 g/dL (11.7-16.6); Lymphocytes # 0.9 10^3/uL (0.8-4.8); Lymphocytes % 9.6 %; Mean Corpuscular HGB Conc 31.7 g/dL (30.0-36.0); Mean Corpuscular Hemoglobin 27.2 pg (28.0-34.0); Mean Corpuscular Volume 85.7 fL (80-94); Monocytes # 0.6 10^3/uL (0.2-0.9); Neutrophils # 7.08 10^3/uL (1.8-7.7); Neutrophils % 77.5 %; Nucleated Red Blood Cells % 0 %; Platelet Count 232 10^3/cmm (130-400); Red Blood Count 4.12 10^6/uL (4.1-5.3); Red Cell Distribution Width 14.7 % (12.1-15.1); White Blood Count 9.1 10^3/uL (4.0-10.0)
[2020-08-24] MEDS: dexamethasone 4 mg/mL INJ 6 MG IVP (05:20)
--- NOTE | 2020-08-24 05:23 | PC.RESP ---
Therapist called to room 210, nurse stated she lost all volumes. Therapist entered room and noticed nurse bagging patient. Therapist tried hooking vent back up to patient and no luck. Therapist went to couples therapist a new vent and noticed the air outlet on the wall was broken. Patient was moved to 205 and back on the vent with the settings patient started out with. patient was bagged to the room. Another therapist helped set up vent.
[2020-08-24] MEDS: FUROsemide 10 mg/mL SDV 4mL 80 MG IVP ×2 (05:34→17:49)
[2020-08-24 05:41] LABS: Glucose Point of Care 117 mg/dL (70-110)
[2020-08-24 06:02] LABS: Ferritin 535 ng/mL (30-400); NT Pro B Type Natriuretic Pept 9724 pg/mL (0-125)
[2020-08-24] MEDS: dexmedetomidine 400 MCG in sodium chloride 0.9% (100 ml) 100 ML 9.7 MCG IV (06:14)
[2020-08-24 06:19] LABS: C Reactive Protein 126.1 mg/L (0.0-4.9)
[2020-08-24 06:22] LABS: Erythrocyte Sedimentation Rate 111 mm/hr (0-10)
--- NOTE | 2020-08-24 06:43 | PC.NURSE ---
approx 0500 Ventilator alarming found low TV and apnea alarms. RT at bedside ambu in use. Pt placed on portable monitor and transfered to room 205. Placed on ventilator. Apnea alarms resolved VSS will continue to monitor
[2020-08-24] MEDS: budesonide 0.5 mg/2 mL Neb INHALATION ×2 (08:30→20:12)
--- NOTE | 2020-08-24 08:38 | PM.PN ---
Subjective Subjective: Interval history: No acute events overnight. On examination patient is on ventilator setting with tidal volume of 600, PEEP of 10, FiO2 of 45% saturating 94%. He is on propofol, fentanyl, Precedex. During examination patient is sedation with short off of sedation vacation. He has had a good urine output. Has remained hemodynamically stable and afebrile overnight. Later in the day patient woke up and was following simple commands and responding through moving his eyes. He was tracking people through his eyes. He was kept on Precedex drip on PSV mode 16/03. Medications: Reviewed: Yes Vitals/I&O/Wt Last Vital Signs Temp 98.6 F 08/24/20 04:00 Pulse 70 08/24/20 04:00 Resp 18 08/24/20 05:32 BP 160/101 08/24/20 06:00 Pulse Ox 89 L 08/24/20 04:00 08/23/20 08/24/20 08/24/20 22:59 06:59 14:59 Intake Total 732.967 / 2229.547 257.595 / 2487.142 Output Total 2250 / 2280 1000 / 3280 Balance -1517.033 / -50.453 -742.405 / -792.858 Physical Exam Narrative: EXAM NARRATIVE: General: Morbidly obese, intubated, sedated, HEENT: PERRLA, pupils bilaterally equal and reactive Chest: Bilateral lower zone decreased breath sounds, bilateral crackles present all over the lung ray with occasional bronchial breath sounds CVS: S1-S2 regular, pansystolic murmur at the apex, no tachycardia, no gallops, no rubs Abdomen: Soft, obese, nontender, no organomegaly, bowel sounds present Neuro: Intubated, sedated but woke up appropriately on sedation vacation, responding through eyes, moving all limbs. Extremities: Bilateral lower limb edema present 1+ up to midcalf Urinary Catheter Management^: Melgar: Cath Placed During This Visit: yes Reason for Continuing Indwelling Catheter: Accurate Measurement of Urinary Output in Critically Ill Patients Urinary Catheter Date of Insertion: 08/19/20 Urinary Catheter Time of Insertion: 02:27 Data : 08/24/20 11:00 08/24/20 11:00 Micro: Microbiology 08/19/20 02:39 Blood Culture - Final Blood NO GROWTH AFTER 5 DAYS 08/23/20 10:00 Enteric Pathogens (PCR) - Final Stool - Stool Aspirate A&P Assessment and plan (1) Cardiac arrest: 1 Cycle CPR No Epi Given No shock Delivered No hypothermia protocol initiated Status: Acute (2) ARDS (adult respiratory distress syndrome): Status: Acute (3) Acute respiratory failure with hypoxia and hypercapnia: Status: Acute (4) Sepsis: Plan as 1 Status: Acute (5) Pneumonia due to 2019-nCoV: Status: Acute (6) Acute exacerbation of CHF (congestive heart failure): Status: Acute (7) CHF (congestive heart failure), NYHA class III: Status: Acute Qualifiers: Congestive heart failure chronicity: chronic Congestive heart failure type: diastolic Qualified Code(s): I50.32 - Chronic diastolic (congestive) heart failure (8) KAYLEEN (acute kidney injury): Status: Acute (9) Hyperkalemia: Insulin 10, D50. Repeat potassium levels in evening. Status: Acute (10) Mixed acid base balance disorder: Predominantly metabolic 2/2 ARF Currently on Bicarb Drip. @ 50 cc/hr Status: Acute (11) Anemia: Status: Acute (12) Brain anoxic injury: Anoxic Brain Injury s/p cardiac arrest. We will continue to monitor brain functions daily with sedation vacation. Status: Acute Additional A&P Information Hypoxic respiratory failure/ARDS secondary to COVID-19 pneumonia and decompensated heart failure with most likely superadded bacterial infection: Post cardiac arrest: Slowly improving. Continues to remain mechanically intubated. Sputum culture, MRSA results awaited. Continue with imipenem on current dose. Vanco random levels 30 so we will hold off on vancomycin for today and repeat Vanco trough level tomorrow afternoon. Continue to follow-up with blood culture, urine culture, sputum culture and will de-escalate antibiotics accordingly. Continue sedation with fentanyl and propofol. Sedation vacation for now. Because patient has woken up appropriately will keep him on Precedex and PCV mode for most part of the day. If patient becomes tachycardic or tachypneic we will put him on full sedation. Wean mechanical ventilator as possible. Increase tidal volume to 600 as per the dry body weight. Patient is Covid positive. Continue remdesivir to finish a 5-day course. Potential benefit of risk factors due to KAYLEEN discussed in detail with both information technology manager and patient in detail. They are agreeing for starting remdesivir for now. We will continue to monitor renal functions. Continue with dexamethasone 6 mg IV daily. DuoNebs every 4 hours, budesonide twice daily. Vitamin C 1000 mg once a day, zinc. Good urine output. Overall 3 L negative. Continue with Lasix 50 mg p.o. OD, metolazone 5 mg daily. Last echocardiogram from September 2019 shows grade 1 diastolic dysfunction with 56% EF with moderate MR. As patient is critically ill will repeat echocardiogram. Appreciate nephrology recommendation. High risk for requiring dialysis in near future. Nutrition: Patient was on tube feeds till 3 days ago. For now we will continue holding off on tube feeds as patient might be extubated tomorrow. Continue with famotidine and GI prophylaxis. Hypertension: Goal blood pressure less than 140/90 mmHg. Continue with current medications including hydralazine 50 mg 3 times daily, Coreg 6.25 mg twice daily, nifedipine 60 mg oral daily. Full code N.p.o. for now/tube feeds from tomorrow. Full dose Lovenox. Severely guarded prognosis. I did discussion regarding patient's medical condition, possible need of dialysis in future if renal functions continue to worsen or if patient becomes oliguric along with patient waking up on sedation vacation related with patient's family including his Ms. Johansen. All the questions were answered. Attestations Medical Necessity Statement*: Requires further hospitalization for management of ARDS due to COVID-19 pneumonia, CHF and post cardiac arrest patient who is Covid positive. Critical Care Time: Critical Care Time (min): 80 Coding Level of Care Code Acute Gin Clerk for [facility] Diagnoses Cardiac arrest I46.9 ARDS (adult respiratory distress syndrome) J80 Acute respiratory failure with hypoxia and hypercapnia J96.01; J96.02 Sepsis A41.9 Pneumonia due to 2019-nCoV U07.1; J12.89 Acute exacerbation of CHF (congestive heart failure) I50.9 CHF (congestive heart failure), NYHA class III I50.32 Congestive heart failure chronicity: chronic Congestive heart failure type: diastolic KAYLEEN (acute kidney injury) N17.9 Hyperkalemia E87.5 Mixed acid base balance disorder E87.4 Anemia D64.9 Brain anoxic injury G93.1
[2020-08-24] MEDS: NIFEdipine ER (24 hr) 30 mg Tablet 60 MG PO (09:39)
[2020-08-24] MEDS: aspirin 81 mg EC Tablet PO (09:39)
[2020-08-24] MEDS: carvedilol 6.25 mg Tablet PO ×2 (09:39→17:50)
[2020-08-24] MEDS: hyDRALAzine 50 mg Tablet 75 MG PO ×3 (09:40→20:53)
[2020-08-24] MEDS: isosorbide mononitrate ER 30 mg Tablet PO (09:40)
[2020-08-24] MEDS: metOLazone 5 MG Tablet PO (09:40)
--- NOTE | 2020-08-24 10:25 | PM.PN ---
Subjective Subjective: Interval history: He remained stable on the ventilator today. Robust urine output in response to diuretic therapy. He still has significant anasarca. Vent settings are noted and remained stable with FiO2 40% and PEEP of 10 currently on CMV. Medications: Reviewed: Yes Vitals/I&O/Wt Last Vital Signs Temp 98.6 F 08/24/20 04:00 Pulse 78 08/24/20 08:56 Resp 16 08/24/20 08:31 BP 160/101 08/24/20 06:00 Pulse Ox 93 08/24/20 08:31 08/23/20 08/24/20 08/24/20 22:59 06:59 14:59 Intake Total 732.967 / 2229.547 457.595 / 2687.142 Output Total 2250 / 2280 1000 / 3280 1100 / 1100 Balance -1517.033 / -50.453 -542.405 / -592.858 -1100 / -1100 Physical Exam Narrative: EXAM NARRATIVE: Constitutional: sedated on the vent HEENT: Wet mucosa, no jvp, non icteric Lungs: Bilaterally clear without discernible wheeze, rales in all lung zones CVS: S1 S2, no murmurs Abdo: Soft, BS ok Ext 4: Global edema, peripheral perfusion with no cyanosis Neurological: sedated Urinary Catheter Management^: Melgar: Cath Placed During This Visit: yes Reason for Continuing Indwelling Catheter: Accurate Measurement of Urinary Output in Critically Ill Patients Urinary Catheter Date of Insertion: 08/19/20 Urinary Catheter Time of Insertion: 02:27 Data : 08/24/20 04:10 08/23/20 08:25 Micro: Microbiology 08/19/20 02:39 Blood Culture - Final Blood NO GROWTH AFTER 5 DAYS 08/23/20 10:00 Enteric Pathogens (PCR) - Final Stool - Stool Aspirate A&P Additional A&P Information 1. KAYLEEN - Consistent with ATN/Covid nephropathy. Labs are pending for today, good urine output. He may need dialysis depending upon chemistry, will follow. He does remain in negative balance but this is marginal, will ask pharmacy to double concentrate all infusions, will stop bicarb, in an effort to minimize his intake. Avoid usual nephrotoxic agents Strict I's and O's Dose medications for GFR less than 15 2. Vent dependent respiratory failure, Vent settings noted Management per ICU team. Primaxin, Levaquin, Vanco on board Dexamethasone on board 3. Chemistry Labs pending, bicarb infusion stopped yesterday to reduce intake. 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
[2020-08-24 11:31] LABS: Basophils % 0.2 %; Eosinophils # 0.2 10^3/uL (0.0-0.8); Eosinophils % 1.7 %; Hematocrit 38.8 % (42.0-52.0); Hemoglobin 12.2 g/dL (11.7-16.6); Lymphocytes # 0.4 10^3/uL (0.8-4.8); Lymphocytes % 2.8 %; Mean Corpuscular HGB Conc 31.4 g/dL (30.0-36.0); Mean Corpuscular Hemoglobin 26.8 pg (28.0-34.0); Mean Corpuscular Volume 85.1 fL (80-94); Mean Platelet Volume 10.2 fL (7.4-10.4); Monocytes # 0.3 10^3/uL (0.2-0.9); Monocytes % 2.1 %; Neutrophils # 12.75 10^3/uL (1.8-7.7); Neutrophils % 90.6 %; Nucleated Red Blood Cells % 0 %; Platelet Count 251 10^3/cmm (130-400); Red Blood Count 4.56 10^6/uL (4.1-5.3); Red Cell Distribution Width 14.7 % (12.1-15.1); White Blood Count 14.1 10^3/uL (4.0-10.0)
[2020-08-24 11:37] LABS: Glucose Point of Care 111 mg/dL (70-110)
[2020-08-24 12:00] LABS: Alanine Aminotransferase 9 U/L (0-41); Albumin Level 2.5 g/dL (3.5-5.2); Alkaline Phosphatase 71 IU/L (40-130); Anion Gap 25.6 (5-19); Aspartate Amino Transferase 15 U/L (0-40); Calcium 8.9 mg/dL (8.5-10.5); Carbon Dioxide 20 mmol/L (22-29); Chloride 99 mmol/L (98-107); Globulin 4.9 g/dL (1.3-4.6); Glomerular Filtration Rate 14.7 mL/min (90-130); Glucose 174 mg/dL (65-115); Osmolality Calculated 330 mOsm/kg (285-295); Potassium 4.6 mmol/L (3.5-5.1); Sodium 140 mmol/L (136-145); Total Bilirubin 0.3 mg/dL (0.15-1.2); Total Protein 7.4 g/dL (6.6-8.7)
[2020-08-24 12:13] LABS: Blood Urea Nitrogen 112 mg/dL (6-20); Phosphorus 10.6 mg/dL (2.5-4.5)
--- NOTE | 2020-08-24 14:41 | PM.CONSULT ---
Providers/Reason For Consult Consulting Physican/Specialty*: Pulmonary critical care medicine Reason for Consult*: Status post cardiac arrest and multiorgan dysfunction in the setting of COVID-19 pneumonia Attending Physician: Edil Bonner MD Primary Care Provider: Sulma Wetzel MD History of Present Illness History of Present Illness Akil Velasco is a 50 year old male who is well-known to me from his previous office visits. I had last evaluated the patient in May 2020. The patient has a complicated past medical history. The patient has hypertension, hyperlipidemia, poorly controlled diabetes mellitus, heart failure with preserved ejection fraction, possible nephrotic syndrome secondary to diabetic nephropathy, severe obstructive sleep apnea, chronic hypercapnic respiratory failure and uncontrolled hypertension. When I saw him in May 2020 the patient had worsening anasarca. The patient used to use the home ventilator however he had stopped using that and returned it. The patient presented to the hospital on August 19 after suffering a cardiac arrest. The patient contracted COVID-19 pneumonia about a week prior to his hospitalization. At home he was found to be hypoxic to 79% that improved to 90% with liter oxygen. On his way to the hospital, the patient lost pulse. He received CPR for 2 minutes with ROSC. The patient had not received any epinephrine. The patient was intubated in the emergency department. Over the past few days, the patient has undergone diuresis. He is receiving broad-spectrum antibiotic therapy as well as Decadron and was recently started on remdesivir. Remdesivir was initially hold because of his acute kidney injury. I had evaluated the patient today. The patient was on minimal sedation with dexmedetomidine. However he was paralyzed for about 4 days and was on heavy dose of Versed and other sedative medications. Today the patient was responsive to me. He was able to follow simple commands like blinking his eyes. Although he was not able to move any of his extremities. The patient had diffuse bilateral lung infiltrate when he presented to the hospital on , over the past few days there has been some changes. The chest x-ray from yesterday revealed bilateral infiltrate which is somewhat reduced and the admissions chest x-ray but worse than the one that was obtained on August 21. The patient was on assist control mechanical ventilation. I have switched this to pressure support ventilation with a PEEP of 8 and pressure support of 5 with 40% FiO2. The patient is having tidal volume around 500 to 600 cc. Review of Systems Narrative: Unable to obtain Meds/Allergies Home Medications and Allergies Home Medications Medication Instructions Recorded Confirmed Last Taken Type carvedilol 25 mg PO BIDPC #60 tab 11/11/19 08/19/20 04/14/20 Rx aspirin 81 mg tablet,delayed 81 mg PO DAILY 11/17/19 08/19/20 04/14/20 History release amlodipine 10 mg tablet 10 mg PO DAILY #90 tab 03/25/20 08/19/20 04/14/20 Rx clonidine HCl 0.2 mg tablet 0.2 mg PO TID 03/25/20 08/19/20 04/14/20 History venlafaxine 75 mg PO DAILY 04/14/20 08/19/20 04/13/20 History hydrochlorothiazide 25 mg PO DAILY #30 tab 04/18/20 08/19/20 Unknown Rx isosorbide mononitrate 30 mg PO DAILY #30 tab 04/18/20 08/19/20 Unknown Rx bumetanide 2 mg tablet 2 mg PO BID tab 05/07/20 08/19/20 Unknown History atorvastatin 80 mg PO DAILY 08/19/20 08/19/20 Unknown History gabapentin 300 mg PO Q6H 08/19/20 08/19/20 Unknown History insulin degludec [Tresiba 40 unit SUBCUT DAILY 08/19/20 08/19/20 Unknown History FlexTouch U-100] losartan 50 mg PO DAILY 08/19/20 08/19/20 Unknown History metolazone 2.5 mg PO DAILY 08/19/20 08/19/20 Unknown History Allergies Allergy/AdvReac Type Severity Reaction Status Date / Time No Known Allergies Allergy Verified 08/14/20 12:05 Current Medications Current Medications Generic Name Dose Route Start Last Admin Trade Name Freq PRN Reason Stop Dose Admin Albuterol/Ipratropium 3 ml 08/19/20 08:00 08/24/20 11:53 Ipratropium-Albuterol 3 Ml Neb INHALATION 3 ml Q4H.RESPIRATORY [place] Administration Artificial Tears 1 drop 08/20/20 21:00 08/23/20 22:02 Artificial Tears Op Soln 15 Ml Btl EYE-BOTH 1 drop BEDTIME [place] Administration Aspirin 81 mg 08/19/20 09:00 08/24/20 09:39 Aspirin 81 Mg Ec Tablet PO 81 mg DAILY [place] Administration Budesonide 0.5 mg 08/23/20 20:00 08/24/20 08:30 Budesonide 0.5 Mg/2 Ml Neb INHALATION 0.5 mg BID.RESPIRATORY [place] Administration Carvedilol 6.25 mg 08/21/20 18:00 08/24/20 09:39 Carvedilol 6.25 Mg Tablet PO 6.25 mg BIDPC [place] Administration Dexamethasone 6 mg 08/19/20 05:02 08/24/20 05:20 Dexamethasone 4 Mg/Ml Inj IVP 6 mg Q24H [place] Administration Enoxaparin Sodium 120 mg 08/23/20 16:00 08/23/20 17:15 Enoxaparin 120 Mg/0.8 Ml Syringe SUBCUT 120 mg Q24H [place] Administration Famotidine 20 mg 08/19/20 12:30 08/24/20 00:21 Famotidine 20 Mg/2 Ml Inj IVP 20 mg Q12H [place] Administration Furosemide 80 mg 08/23/20 18:00 08/24/20 05:34 Furosemide 10 Mg/Ml Sdv 4ml IVP 80 mg Q12H [place] Administration Hydralazine HCl 10 mg 08/22/20 14:53 08/23/20 01:00 Hydralazine 20 Mg/Ml Inj 1 Ml IVP 10 mg Q4H PRN Administration for SB/P Greater then 160 Hydralazine HCl 75 mg 08/24/20 09:00 08/24/20 09:40 Hydralazine 50 Mg Tablet PO 75 mg TID [place] Administration Propofol 1,000 mg in 100 mls @ 0 mls/hr 08/19/20 02:15 08/24/20 09:45 Diprivan IV 0 mcg/kg/min .Q0M [place] 0 mls/hr Titration Protocol Per Protocol Imipenem/Cilastatin Sodium 250 100 mls @ 200 mls/hr 08/19/20 09:15 08/24/20 10:10 mg/ Sodium Chloride IV Infused Q6H [place] Infusion Protocol Vancomycin/PEG/NADA/Lysine/Water 1,500 mg in 300 mls @ 200 mls/hr 08/20/20 15:30 08/23/20 18:48 Vancocin IV Infused Q24H [place] Infusion Dexmedetomidine HCl 400 mcg/ 104 mls @ 0 mls/hr 08/21/20 17:45 08/24/20 09:45 Sodium Chloride IV 0.2 mcg/kg/hr .Q0M [place] 6.5 mls/hr Titration Protocol Per Protocol Fentanyl 1,000 mcg/ Sodium 100 mls @ 0 mls/hr 08/23/20 09:00 08/24/20 09:45 Chloride IV 0 mcg/hr .Q0M [place] 0 mls/hr Titration Protocol Per Protocol Insulin Aspart 0 unit 08/23/20 15:30 08/24/20 05:19 Insulin Aspart 100 Unit/1 Ml SUBCUT Not Given Q6H [place] Protocol Isosorbide Mononitrate 30 mg 08/24/20 09:00 08/24/20 09:40 Isosorbide Mononitrate Er 30 Mg Tablet PO 30 mg DAILY [place] Administration Metolazone 5 mg 08/24/20 09:00 08/24/20 09:40 Metolazone 5 Mg Tablet PO 5 mg DAILY [place] Administration Nifedipine 60 mg 08/22/20 15:17 08/24/20 09:39 Nifedipine Er (24 Hr) 30 Mg Tablet PO 60 mg DAILY [place] Administration PFSH Acute PFSH: Medical History Accelerated hypertension Acute on chronic diastolic (congestive) heart failure [id number] kidney injury Anasarca Cancer Cataract (lens) fragments in eye following cataract surgery, bilateral CKD stage 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 Congestive cardiac failure Diabetes Fracture of fifth metatarsal bone of left foot Fracture of fourth metatarsal bone of left foot Hypertension Laceration Metabolic alkalosis Neuropathy PVD (peripheral vascular disease) Renal cell carcinoma History bilateral renal cell carcinoma 2007 then recurrence on the contralateral side 2011. No recurrence for long-term follow-up with some suspicion on CT scan April 2020. Type 2 diabetes mellitus with diabetic polyneuropathy Surgical History H/O partial nephrectomy bilateral Hx of lymph node excision Family History Father Diabetes Mother Diabetes Grandfather Diabetes Cancer Other Hyperlipidemia Social History Smoking and tobacco status: never smoked Alcohol intake: current Alcohol intake frequency: holidays/special occasions only Lives independently: Yes Household members: spouse Housing: House Marital status: Current occupational status: retired History of recent travel: No Current gender identity: Male Vitals/I&O/Wt Last Vital Signs Temp 98.6 F 08/24/20 04:00 Pulse 89 08/24/20 11:56 Resp 14 08/24/20 14:31 BP 160/101 08/24/20 06:00 Pulse Ox 93 08/24/20 11:56 08/23/20 08/24/20 08/24/20 22:59 06:59 14:59 Intake Total 1032.967 / 2529.547 457.595 / 2987.142 247.762 / 247.762 Output Total 2250 / 2280 1000 / 3280 1100 / 1100 Balance -1217.033 / 249.547 -542.405 / -292.858 -852.238 / -852.238 Physical Exam Narrative: EXAM NARRATIVE: General: Patient is intubated mildly sedated, able to follow very simple commands with blinking of eyes, not moving any extremities Neck: Distended jugular venous pulsation Respiratory: Auscultation: Crackles at lung bases, no wheezing or rhonchi Cardiovascular: Regular rate and rhythm, S1-S2 present, no murmur, bilateral peripheral edema Abdomen: Soft, distended from obesity, positive bowel sound Neuro: Patient is sedated, minimally responsive, following very simple commands, not moving any extremities spontaneously Urinary Catheter Management^: Melgar: Cath Placed During This Visit: yes Reason for Continuing Indwelling Catheter: Accurate Measurement of Urinary Output in Critically Ill Patients Urinary Catheter Date of Insertion: 08/19/20 Urinary Catheter Time of Insertion: 02:27 Data Micro: Micro: Microbiology 08/19/20 11:39 Blood Culture - Fi nal Blood NO GROWTH AFTER 5 DAYS 08/19/20 02:39 Blood Culture - Fi nal Blood NO GROWTH AFTER 5 DAYS 08/23/20 10:00 Enteric Pathogens (PCR) - Final Stool - Stool Asp irate Other Data: Attestation for Other Data: I personally reviewed and interpreted the following: Other data: I have reviewed the patient laboratory, microbiologic and radiologic data. All his microbiologic studies are negative. He has mild leukocytosis. His BUN has been persistently elevated. The latest 2 days 112. The creatinine has been stable at 4ish. A&P Assessment and plan (1) Pneumonia due to 2019-nCoV: The patient tested positive for COVID-19 pneumonia on August 14. He presented to the hospital on August 19 after suffering cardiac arrest likely secondary to hypoxia. Status: Acute (2) Acute respiratory failure with hypoxia: The acute hypoxic respiratory failure is likely secondary to a combination of COVID-19 pneumonia as well as acute pulmonary edema with decompensated diastolic heart failure. The patient is doing remarkably well with diuresis. The patient is currently broadly covered with antibiotic. He is also receiving dexamethasone and remdesivir. I put the patient on pressure support ventilation. He is on 8/4 with an FiO2 of 40%. These are minimal ventilator settings. The patient's mental status is still not the greatest. The patient had received a significant quantity of sedative medication when he was paralyzed. In the setting of kidney injury this could take a while to clear up. In addition, the patient has significantly elevated BUN and uremic encephalopathy could also be contributing to his mental status. At this point, we will continue with dexmedetomidine and if necessary with bolus fentanyl doses rather than continuous IV infusion. Would recommend not going above 0.7 on dexmedetomidine dose given the renal failure. The patient might need a couple of sessions of dialysis. Status: Acute (3) KAYLEEN (acute kidney injury): The etiology of the ATN is likely multifactorial. Probably in the setting of COVID-19 pneumonia, hypoxia, cardiac arrest leading to acute tubular necrosis. It appears that the BUN and the creatinine level has peaked and leveled. We will discuss with the nephrology team regarding the dialysis plan. Status: Acute (4) Cardiac arrest: The patient had a cardiac arrest likely secondary to hypoxia. This was a PEA arrest. We will continue the supportive therapy. The cardiac arrest was only for 2 minutes. I am hoping there is no significant neurologic injury. Thank you for the consultation. I will continue to follow the patient. Status: Acute Coding Level of Care Code Acute Research Administrator for [facility] Diagnoses Pneumonia due to 2019-nCoV U07.1; J12.89 Acute respiratory failure with hypoxia J96.01 KAYLEEN (acute kidney injury) N17.9 Cardiac arrest I46.9
[2020-08-24] MEDS: dexmedetomidine 400 MCG in sodium chloride 0.9% (100 ml) 100 ML 6.5 MCG IV (16:12)
[2020-08-24] MEDS: enoxaparin 120 mg/0.8 mL Syringe SUBCUT (16:24)
[2020-08-24] MEDS: remdesivir 100 MG in sodium chloride 0.9% (100 ml) 100 ML IV (17:50)
[2020-08-24 17:59] LABS: Glucose Point of Care 109 mg/dL (70-110)
[2020-08-24 17:59] LABS: Glucose Point of Care 130 mg/dL (70-110)
[2020-08-24] MEDS: artificial tears Op Soln 15 mL Btl 1 DROP EYE-BOTH (20:53)
[2020-08-24] MEDS: dexmedetomidine 400 MCG in sodium chloride 0.9% (100 ml) 100 ML 19.5 MCG IV (21:20)
[2020-08-24] MEDS: propofol 1,000 MG/100 ML INJ 3.7 MG IV (21:25)
[2020-08-25] VITALS (67 sets, daily range): BP systolic 152–212; BP diastolic 81–102; PULSE 73–107; RESP 12–28; O2SAT 90–97
--- NOTE | 2020-08-25 00:17 | PC.NURSE ---
ASSUMING CARE Patient resting in bed mechanically ventilated. Patient is on precedex drip at 0.6 mcg/kg/hour. Patient has his eyes open and follows nurses command to squeeze her hand. Patient on CMV mode on ventilator and patient is coughing against ventilator. Fentanyl restarted and propofol restarted to keep patient from breathing over the ventilator and being restless. Propofol restarted at 5 mcg/kg/min and fentanyl restarted at 25 mcg/hour. Propofol titrated to 30 mcg/kg/min per protocol and fentanyl to 75 per protovcol, patient still follows commands and easily arousable but is resting with eyes closed and not breathing over ventilator. Patient was asked if he was in pain and patient shook his head no.
[2020-08-25] MEDS: famotidine 20 mg/2 mL INJ IVP ×2 (01:16→12:14)
[2020-08-25] MEDS: dexmedetomidine 400 MCG in sodium chloride 0.9% (100 ml) 100 ML 19.5 MCG IV (02:47)
[2020-08-25] MEDS: propofol 1,000 MG/100 ML INJ 18.7 MG IV (02:53)
[2020-08-25] MEDS: ipratropium-albuterol 3 mL Neb INHALATION ×6 (03:19→23:33)
[2020-08-25] MEDS: dexamethasone 4 mg/mL INJ 6 MG IVP (04:13)
[2020-08-25] MEDS: hyDRALAzine 20 mg/mL INJ 1 mL 10 MG IVP (04:14)
[2020-08-25 04:34] LABS: Glucose Point of Care 123 mg/dL (70-110)
[2020-08-25 04:45] LABS: Basophils % 0.2 %; Eosinophils # 0.4 10^3/uL (0.0-0.8); Eosinophils % 4.2 %; Hematocrit 35.8 % (42.0-52.0); Hemoglobin 11.2 g/dL (11.7-16.6); Lymphocytes # 0.7 10^3/uL (0.8-4.8); Lymphocytes % 7.5 %; Mean Corpuscular HGB Conc 31.3 g/dL (30.0-36.0); Mean Corpuscular Hemoglobin 26.7 pg (28.0-34.0); Mean Corpuscular Volume 85.2 fL (80-94); Mean Platelet Volume 10.4 fL (7.4-10.4); Monocytes # 0.6 10^3/uL (0.2-0.9); Monocytes % 6.8 %; Neutrophils # 7.25 10^3/uL (1.8-7.7); Neutrophils % 79.9 %; Nucleated Red Blood Cells % 0.2 %; Platelet Count 240 10^3/cmm (130-400); Red Cell Distribution Width 14.6 % (12.1-15.1); White Blood Count 9.1 10^3/uL (4.0-10.0)
[2020-08-25 05:18] LABS: D Dimer 2.44 ug/mIFEU (0-0.59)
[2020-08-25 05:21] LABS: Fibrinogen 1058 mg/dL (174-498)
[2020-08-25 05:35] LABS: C Reactive Protein 97.1 mg/L (0.0-4.9); Creatine Phosphokinase 68 U/L (39-308); NT Pro B Type Natriuretic Pept 12524 pg/mL (0-125)
[2020-08-25 05:41] LABS: Alanine Aminotransferase 8 U/L (0-41); Albumin Level 2.4 g/dL (3.5-5.2); Alkaline Phosphatase 64 IU/L (40-130); Aspartate Amino Transferase 15 U/L (0-40); Calcium 8.9 mg/dL (8.5-10.5); Carbon Dioxide 20 mmol/L (22-29); Chloride 103 mmol/L (98-107); Globulin 4.3 g/dL (1.3-4.6); Glomerular Filtration Rate 13.6 mL/min (90-130); Glucose 117 mg/dL (65-115); Sodium 144 mmol/L (136-145); Total Bilirubin 0.3 mg/dL (0.15-1.2); Total Protein 6.7 g/dL (6.6-8.7)
[2020-08-25 05:52] LABS: Anion Gap 25.1 (5-19); Blood Urea Nitrogen 121 mg/dL (6-20); Ferritin 515 ng/mL (30-400); Lactate Dehydrogenase 410 U/L (135-225); Osmolality Calculated 338 mOsm/kg (285-295); Potassium 4.1 mmol/L (3.5-5.1)
[2020-08-25] MEDS: FUROsemide 10 mg/mL SDV 4mL 80 MG IVP (06:09)
--- NOTE | 2020-08-25 06:32 | PC.NURSE ---
SEDATION Patient has been attempting to breathe over the vent for the past few minutes. Sedation medications titrated up. Fentanyl is at 50 mcg/hour, propofol at 20 mcg/kg/min, and precedex at 0.7 mcg/kg/hour.
[2020-08-25] MEDS: dexmedetomidine 400 MCG in sodium chloride 0.9% (100 ml) 100 ML 22.7 MCG IV (06:43)
[2020-08-25] MEDS: budesonide 0.5 mg/2 mL Neb INHALATION ×2 (07:32→20:15)
--- NOTE | 2020-08-25 08:06 | PM.PN ---
Subjective Subjective: Interval history: The patient has a much better mental status this morning. He is able to follow commands move all extremities. The patient was on pressure support ventilation overnight. His sedation has been turned off and he has been put on pressure support ventilation for preparation of extubation. The patient had a total of 6 L urine output with a net negative of 4.7 L. Medications: Reviewed: Yes Vitals/I&O/Wt Last Vital Signs Temp 98.6 F 08/24/20 04:00 Pulse 89 08/25/20 07:40 Resp 14 08/25/20 07:35 BP 186/90 08/24/20 20:00 Pulse Ox 94 08/25/20 07:32 08/24/20 08/25/20 08/25/20 22:59 06:59 14:59 Intake Total 481.129 / 728.891 368.59 / 1097.481 123.626 / 123.626 Output Total 3350 / 4450 1550 / 6000 Balance -2868.871 / -3721.109 -1181.41 / -4902.519 123.626 / 123.626 Weight last 48 hrs Weight 328 lb 14.4 oz Physical Exam Narrative: EXAM NARRATIVE: General: Patient is intubated, mildly sedated, following all commands blinking of eyes, not moving any extremities Neck: Distended jugular venous pulsation Respiratory: Auscultation: Crackles at lung bases, no wheezing or rhonchi Cardiovascular: Regular rate and rhythm, S1-S2 present, no murmur, bilateral peripheral edema Abdomen: Soft, distended from obesity, positive bowel sound Neuro: Patient is minimally sedated, following all commands Urinary Catheter Management^: Melgar: Cath Placed During This Visit: yes Reason for Continuing Indwelling Catheter: Accurate Measurement of Urinary Output in Critically Ill Patients Urinary Catheter Date of Insertion: 08/19/20 Urinary Catheter Time of Insertion: 02:27 Data : 08/25/20 04:11 08/25/20 04:11 Micro: Microbiology 08/24/20 08:40 Gram Stain - Final Sputum - Endotracheal Tube Aspirate 08/19/20 11:39 Blood Culture - Final Blood NO GROWTH AFTER 5 DAYS 08/19/20 02:39 Blood Culture - Final Blood NO GROWTH AFTER 5 DAYS Attestation for Other Data: I personally reviewed and interpreted the following: Other data: I have reviewed the patient ability microbiologic and radiologic data. All microbiologic studies are negative so far. No chest x-ray this morning it. The white count has come down to 9000. The BUN is higher than yesterday at 121 the creatinine is stable at 4.6 A&P Assessment and plan (1) Pneumonia due to 2018-nCoV: The patient tested positive for COVID-19 pneumonia on August 14. He presented to the hospital on August 19 after suffering cardiac arrest likely secondary to hypoxia. Status: Acute (2) Acute respiratory failure with hypoxia: The acute hypoxic respiratory failure is likely secondary to a combination of COVID-19 pneumonia as well as acute pulmonary edema with decompensated diastolic heart failure. The patient is doing remarkably well with diuresis. The patient is currently broadly covered with antibiotic. He is also receiving dexamethasone and remdesivir. The patient is more awake alert and following commands. He is going to be on pressure support ventilation for preparation of extubation this morning. All sedation has been turned off. The patient can be extubated to BiPAP. Status: Acute (3) KAYLEEN (acute kidney injury): The etiology of the ATN is likely multifactorial. Probably in the setting of COVID-19 pneumonia, hypoxia, cardiac arrest leading to acute tubular necrosis. It appears that the BUN and the creatinine level has peaked and leveled. The patient had received diuretics with a net 4.7 L negative yesterday. This is likely secondary to a combination of post ATN diuresis. Nephrology team is following the patient. Status: Acute (4) Cardiac arrest: No significant evidence of hypoxic brain injury at this point. Status: Acute Attestations Medical Necessity Statement*: Will defer to the primary team Coding Level of Care Code Acute Supplemental Manager for [facility] Fwd Diagnoses Pneumonia due to 2019-nCoV U07.1; J12.89 Acute respiratory failure with hypoxia J96.01 KAYLEEN (acute kidney injury) N17.9 Cardiac arrest I46.9
--- NOTE | 2020-08-25 08:08 | XR_ITS ---
WS: [id number] Exam: XR chest 1V portable [id number] Date/Time of Exam: 08/25/2020 8:33 AM Reason For Exam: Respiratory failure Comparison 08/23/2016. Bilateral pulmonary infiltrates show significant improvement. Mild cardiac enlargement. No pleural ef fusions or pneumothorax. The mediastinum is not widened. ET tube remains in good position ending abou t 5 cm ago the adrianna. An NG tube extends below the diaphragm. Bony elements are intact. XR/XR chest 1V portable [id number] IMPRESSION: 1. Bilateral pulmonary infiltrates show significant improvement since prior exa m. No other significant change.
--- NOTE | 2020-08-25 08:42 | P.PN_ITS ---
Subjective Subjective: Interval history: intubated, sedated. doing well on vent. bp high Medications: Reviewed: Yes Medication Review Details: Current Medications Albuterol/Ipratropium (Ipratropium-Albuterol 3 Ml Neb) 3 ml INHALATION Q4H.RESPIRATORY [facility] Last Admin: 08/25/20 07:32 Dose: 3 ml Documented by: Artificial Tears (Artificial Tears Op Soln 15 Ml Btl) 1 drop EYE-BOTH BEDTIME [facility] Last Admin: 08/24/20 20:53 Dose: 1 drop Documented by: Aspirin (Aspirin 81 Mg Ec Tablet) 81 mg PO DAILY [facility] Last Admin: 08/24/20 09:39 Dose: 81 mg Documented by: Budesonide (Budesonide 0.5 Mg/2 Ml Neb) 0.5 mg INHALATION BID.RESPIRATORY [facility] Last Admin: 08/25/20 07:32 Dose: 0.5 mg Documented by: Carvedilol (Carvedilol 6.25 Mg Tablet) 6.25 mg PO BIDPC [facility] Last Admin: 08/24/20 17:50 Dose: 6.25 mg Documented by: Dexamethasone (Dexamethasone 4 Mg/Ml Inj) 6 mg IVP Q24H [facility] Last Admin: 08/25/20 04:13 Dose: 6 mg Documented by: Dextrose (Dextrose 50% Syringe 50 Ml) 25 ml IVP ONCE PRN; Protocol PRN Reason: hypoglycemia protocol Dextrose (Dextrose 50% Syringe 50 Ml) 50 ml IVP PRN PRN; Protocol PRN Reason: hypoglycemia protocol Enoxaparin Sodium (Enoxaparin 120 Mg/0.8 Ml Syringe) 120 mg SUBCUT Q24H [facility] Last Admin: 08/24/20 16:24 Dose: 120 mg Documented by: Famotidine (Famotidine 20 Mg/2 Ml Inj) 20 mg IVP Q12H [facility] Last Admin: 08/25/20 01:16 Dose: 20 mg Documented by: Glucagon (Glucagon 1 Mg/Ml Inj 1 Ml) 1 mg IM ONCE PRN; Protocol PRN Reason: Adult Acute Hypoglycemia Prot. Hydralazine HCl (Hydralazine 20 Mg/Ml Inj 1 Ml) 10 mg IVP Q4H PRN PRN Reason: for SB/P Greater then 160 Last Admin: 08/25/20 04:14 Dose: 10 mg Documented by: Hydralazine HCl (Hydralazine 50 Mg Tablet) 75 mg PO TID [facility] Last Admin: 08/24/20 20:53 Dose: 75 mg Documented by: Propofol (Diprivan) 1,000 mg in 100 mls @ 0 mls/hr IV .Q0M [facility]; Protocol Last Titration: 08/25/20 07:52 Dose: 0 mcg/kg/min, 0 mls/hr Documented by: Dextrose (D5w) 500 mls @ 100 mls/hr IV ONCE PRN; Protocol PRN Reason: Adult Acute Hypoglycemia Prot Imipenem/Cilastatin Sodium 250 (mg/ Sodium Chloride) 100 mls @ 200 mls/hr IV Q6H [facility]; Protocol Last Infusion: 08/25/20 06:11 Dose: Infused Documented by: Vancomycin/PEG/NADA/Lysine/Water (Vancocin) 1,500 mg in 300 mls @ 200 mls/hr IV Q24H [facility] Last Infusion: 08/23/20 18:48 Dose: Infused Documented by: Dexmedetomidine HCl 400 mcg/ (Sodium Chloride) 104 mls @ 0 mls/hr IV .Q0M [facility]; Protocol Last Titration: 08/25/20 07:52 Dose: 0 mcg/kg/hr, 0 mls/hr Documented by: Fentanyl 1,000 mcg/ Sodium (Chloride) 100 mls @ 0 mls/hr IV .Q0M [facility]; Protocol Last Titration: 08/25/20 07:52 Dose: 0 mcg/hr, 0 mls/hr Documented by: Remdesivir 100 mg/ Sodium (Chloride) 100 mls @ 100 mls/hr IV Q24H [facility] Stop: 08/27/20 18:59 Last Infusion: 08/24/20 19:24 Dose: Infused Documented by: Insulin Aspart (Insulin Aspart 100 Unit/1 Ml) 0 unit SUBCUT Q6H [facility]; Protocol Last Admin: 08/25/20 04:13 Dose: Not Given Documented by: Isosorbide Mononitrate (Isosorbide Mononitrate Er 30 Mg Tablet) 30 mg PO DAILY [facility] Last Admin: 08/24/20 09:40 Dose: 30 mg Documented by: Metolazone (Metolazone 5 Mg Tablet) 5 mg PO DAILY [facility] Last Admin: 08/24/20 09:40 Dose: 5 mg Documented by: Nifedipine (Nifedipine Er (24 Hr) 30 Mg Tablet) 60 mg PO DAILY [facility] Last Admin: 08/24/20 09:39 Dose: 60 mg Documented by: Vitals/I&O/Wt Last Vital Signs Temp 98.6 F 08/24/20 04:00 Pulse 89 08/25/20 07:40 Resp 14 08/25/20 07:35 BP 186/90 08/24/20 20:00 Pulse Ox 94 08/25/20 07:32 08/24/20 08/25/20 08/25/20 22:59 06:59 14:59 Intake Total 481.129 / 728.891 368.59 / 1097.481 123.626 / 123.626 Output Total 3350 / 4450 1550 / 6000 Balance -2868.871 / -3721.109 -1181.41 / -4902.519 123.626 / 123.626 Weight last 48 hrs Weight 149.187 kg Physical Exam Narrative: EXAM NARRATIVE: sedated, on vent, rr=10/ tv 600/ ps 12/ peep 8/ fio2 38% heent- ncat neck supple lungs improved air movement b/l heart reg, +YAS abd soft, nt, nd, + bs ext dec edema b/l -remais anasarca neuro- sedated pulses + b/l Urinary Catheter Management^: Melgar: Cath Placed During This Visit: yes Reason for Continuing Indwelling Catheter: Accurate Measurement of Urinary Output in Critically Ill Patients Urinary Catheter Date of Insertion: 08/19/20 Urinary Catheter Time of Insertion: 02: Data : 08/25/20 04:11 08/25/20 04:11 Micro: Microbiology 08/24/20 08:40 Gram Stain - Final Sputum - Endotracheal Tube Aspirate 08/19/20 11:39 Blood Culture - Final Blood NO GROWTH AFTER 5 DAYS 08/19/20 02:39 Blood Culture - Final Blood NO GROWTH AFTER 5 DAYS A&P Additional A&P Information 1. KAYLEEN - Consistent with ATN/Covid nephropathy. -excellent diuresis- hold lasix and monitor uop, chemistries, cr Avoid usual nephrotoxic agents Strict I's and O's Dose medications for GFR less than 15 -bun should improve off of diuretics -avoid hypotension 2. Vent dependent respiratory failure, Vent settings noted Management per ICU team. Primaxin, Levaquin, Vanco on board -monitor vanco level, keep trough under 19 Dexamethasone on board 3. hyperphosphatemia- monitor repeat doses. 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
[2020-08-25] MEDS: hyDRALAzine 50 mg Tablet 75 MG PO ×3 (09:14→20:24)
[2020-08-25] MEDS: aspirin 81 mg EC Tablet PO (09:14)
[2020-08-25] MEDS: isosorbide mononitrate ER 30 mg Tablet PO (09:14)
[2020-08-25] MEDS: NIFEdipine ER (24 hr) 30 mg Tablet 60 MG PO (09:14)
[2020-08-25] MEDS: carvedilol 6.25 mg Tablet PO ×2 (09:14→17:50)
[2020-08-25 10:35] LABS: Glucose Point of Care 156 mg/dL (70-110)
[2020-08-25] MEDS: fluconazole premix 200 MG/100 ML PREMIX 100 MG IV (12:05)
--- NOTE | 2020-08-25 12:13 | P.PN_ITS ---
Subjective Subjective: Interval history: No acute events overnight. When hemodynamically stable though blood pressure on the higher side overnight. Urine output documented overnight more than 3 L. On examination patient is off sedation, awake alert on mechanical ventilator following commands and responding to eye movements. Responding appropriately. During the day patient was extubated to heated high flow. He continued to maintain his saturations at 93% and follow simple commands. Medications: Reviewed: Yes Vitals/I&O/Wt Last Vital Signs Temp 98.6 F 08/24/20 04:00 Pulse 103 H 08/25/20 11:27 Resp 16 08/25/20 11:26 BP 186/90 08/24/20 20:00 Pulse Ox 93 08/25/20 11:26 08/24/20 08/25/20 08/25/20 22:59 06:59 14:59 Intake Total 481.129 / 728.891 368.59 / 1097.481 223.626 / 223.626 Output Total 3350 / 4450 1550 / 6000 2250 / 2250 Balance -2868.871 / -3721.109 -1181.41 / -4902.519 -2026.374 / -2026.374 Weight last 48 hrs Weight 149.187 kg Physical Exam Narrative: EXAM NARRATIVE: General: Extubated today, following simple commands, AO x3. Confused while in the hospital. HEENT: PERRLA, pupils bilaterally equal and reactive Chest: Bilateral lower zone decreased breath sounds, bilateral crackles present all over the lung ray with occasional bronchial breath sounds CVS: S1-S2 regular, pansystolic murmur at the apex, no tachycardia, no gallops, no rubs Abdomen: Soft, obese, nontender, no organomegaly, bowel sounds present Neuro: Awake and alert post extubation, moving all 4 limbs, will do more extensive exam tomorrow 24 hours post extubation. Extremities: Bilateral lower limb edema present 1+ up to midcalf though improving Urinary Catheter Management^: Melgar: Cath Placed During This Visit: yes Reason for Continuing Indwelling Catheter: Accurate Measurement of Urinary Output in Critically Ill Patients Urinary Catheter Date of Insertion: 08/19/20 Urinary Catheter Time of Insertion: 02: Data : 08/25/20 04:11 08/25/20 04:11 Micro: Microbiology 08/24/20 08:40 Gram Stain - Final Sputum - Endotracheal Tube Aspirate Sputum Culture - Preliminary Yeast species 08/19/20 11:39 Blood Culture - Final Blood NO GROWTH AFTER 5 DAYS A&P Assessment and plan (1) ARDS (adult respiratory distress syndrome): Status: Acute (2) Acute respiratory failure with hypoxia and hypercapnia: Status: Acute (3) Sepsis: Plan as 1 Status: Acute (4) Pneumonia due to 2019-nCoV: Status: Acute (5) Acute exacerbation of CHF (congestive heart failure): Status: Acute (6) CHF (congestive heart failure), NYHA class III: Status: Acute Qualifiers: Congestive heart failure type: diastolic Congestive heart failure icd 9 coder nicity: chronic Qualified Code(s): I50.32 - Chronic diastolic (congestive) heart failure (7) KAYLEEN (acute kidney injury): Status: Acute (8) Cardiac arrest: 1 Cycle CPR No Epi Given No shock Delivered No hypothermia protocol initiated Status: Acute (9) Hyperkalemia: Currently resolving monitor. Status: Acute (10) Mixed acid base balance disorder: Resolved Status: Acute (11) Anemia: Status: Acute Additional A&P Information Hypoxic respiratory failure/ARDS secondary to COVID-19 pneumonia and decompensated heart failure with most likely superadded bacterial infection: Post cardiac arrest: Extubated today. Continue with heated high flow while trying to wean off oxygen keeping sat uration more than 90%. Continue with imipenem current dose. Vanco and on level yesterday 30. Continue to hold off on vancomycin for now. Repeat Vanco trough level in the afternoon and will dose vancomycin accordingly. Continue follow blood culture, urine culture, sputum culture. Sputum culture from ET tube growing yeast. Will ask lab to speciate. For now start patient on fluconazole 200 mg orally daily. Patient is Covid positive. Continue remdesivir to finish a 5-day course. Potential benefit versus risk factors due to KAYLEEN discussed in detail with both security system analyst and patient in detail. They are agreeing for starting remdesivir for now. We will continue to monitor renal functions. Continue with dexamethasone 6 mg IV daily. DuoNebs every 4 hours, budesonide twice daily. Vitamin C 1000 mg once a day, zinc. Acute kidney injury: Most likely secondary to post cardiac arrest status, severe sepsis. Most likely ATN. Patient having good urine output most likely from diuretic phase of ATN. Continue to monitor urine output. We will hold off on any further diuretics for today. If urine output drops less than 100 cc/h will decide about repeating Lasix. Repeat BMP in afternoon and replete electrolytes most likely potassium accordingly. Last echocardiogram from September 2019 shows grade 1 diastolic dysfunction with 56% EF with moderate MR. Repeat echocardiogram done during this admission poor study but most likely similar results with mild pericardial effusion. Pericardial effusion most likely due to post cardiac arrest/CPR status. Appreciate nephrology and pulmonology recommendation. High risk for requiring dialysis in near future. Nutrition: We will do speech and swallow evaluation during the day today and advance diet accordingly. Continue with famotidine and GI prophylaxis. Hypertension: Goal blood pressure less than 140/90 mmHg. Blood pressure continues to remain elevated. Continue with current medications including hydralazine 75 mg 3 times daily, C oreg 6.25 mg twice daily, nifedipine 60 mg oral daily. Start patient on clonidine patch 0.2 as per the home dose. Once patient is able to take oral well can uptitrate oral medications. Insulin sliding scale every 6 hours as patient is n.p.o. for now. Full code N.p.o. for now. Speech and swallow evaluation today. Full dose Lovenox. Severely guarded prognosis. Patient's care discussed in detail with his Ms. Johansen. All the questions were answered. Attestations Medical Necessity Statement*: Requires further hospitalization for management of acute hypoxic respiratory failure due to COVID-19 pneumonia, CHF, post cardiac arrest status. Critical Care Time: Critical Care Time (min): 70 Coding Level of Care Code Acute Legal Process Specialist for [facility] Diagnoses ARDS (adult respiratory distress syndrome) J80 Acute respiratory failure with hypoxia and hypercapnia J96.01; J96.02 Sepsis A41.9 Pneumonia due to 2019-nCoV U07.1; J12.89 Acute exacerbation of CHF (congestive heart failure) I50.9 CHF (congestive heart failure), NYHA class III I50.32 Congestive heart failure type: diastolic Congestive heart failure chronicity: chronic KAYLEEN (acute kidney injury) N17.9 Cardiac arrest I46.9 Hyperkalemia E87.5 Mixed acid base balance disorder E87.4 Anemia D64.9
[2020-08-25] MEDS: sodium chloride 0.9% (100 ml) 100 ML 10 ML (12:14)
[2020-08-25] MEDS: cloNIDine 0.2 mg/24 hr Patch 1 PATCH TRANSDERMA (12:14)
[2020-08-25] MEDS: enoxaparin 120 mg/0.8 mL Syringe SUBCUT (15:25)
[2020-08-25 17:08] LABS: Glucose Point of Care 140 mg/dL (70-110)
[2020-08-25] MEDS: remdesivir 100 MG in sodium chloride 0.9% (100 ml) 100 ML IV (17:51)
[2020-08-25 17:53] LABS: Anion Gap 24.9 (5-19); Calcium 9.3 mg/dL (8.5-10.5); Carbon Dioxide 21 mmol/L (22-29); Chloride 103 mmol/L (98-107); Glomerular Filtration Rate 15.1 mL/min (90-130); Glucose 131 mg/dL (65-115); Potassium 3.9 mmol/L (3.5-5.1); Sodium 145 mmol/L (136-145)
[2020-08-25 18:16] LABS: Blood Urea Nitrogen 127 mg/dL (6-20); Osmolality Calculated 343 mOsm/kg (285-295)
[2020-08-25 19:19] LABS: Vancomycin Trough 29.4 ug/mL (10-15)
[2020-08-25] MEDS: artificial tears Op Soln 15 mL Btl 1 DROP EYE-BOTH (20:23)
[2020-08-25] MEDS: OLANZapine 5 mg ODT PO (20:24)
[2020-08-25 21:42] LABS: Glucose Point of Care 121 mg/dL (70-110)
[2020-08-26] VITALS (41 sets, daily range): BP systolic 167–205; BP diastolic 85–107; PULSE 89–103; RESP 13–28; TEMP 36.4; O2SAT 87–97
[2020-08-26] MEDS: famotidine 20 mg/2 mL INJ IVP ×2 (00:30→12:39)
--- NOTE | 2020-08-26 02:14 | PC.NURSE ---
ASSUMING CARE Patient resting in bed quietly. Patient is awake and is able to answer questions and have small conversations with nurse. Patient is on HHFNC at 30L and 40%. No IV medications are running at this time. Patient states that he is in ICU, but when asked what city he was in and what year it is, patient states and 1989. Patient reoriented to where he is and what year it is. Patient states that he does not have any pain and day shift RN helped to reposition patient and lift up in bed. Call light in reach.
--- NOTE | 2020-08-26 02:51 | PC.NURSE ---
CVL REMOVAL Patient has 3 peripheral IV lines that are patent. Right femoral CVL not in use and antibiotics being given through peripheral IV's. Nurse concerned about secondary infection if CVL kept in. Dr. Johansen notified and gave order to remove right femoral CVL. Removed at 0116. 2 sutures removed, catheter tip intact, pressure held for 5 minutes, and site covered with guaze and tegaderm dressing. No bleeding or drainage at this time. Patient tolerated well and complained of minimal pain with suture removal.
--- NOTE | 2020-08-26 02:57 | PC.NURSE ---
FACETIME WITH FAMILY Nurse called patients daughter, Ginny, to give an update. Daughter asked if she and the patients , Haily, could facetime. Nurse assisted patient with facetiming family on his phone for approximately 45 minutes. Call lifted patients spirit and he states 'I'm glad I got to talk to my family. While bathing patient around 0045, patients daughter Ginny sent him a text. Patient asked nurse to read it and to call and let her know that he got her messages. Ginny called again to let her know that nurse read her messages to patient.
[2020-08-26] MEDS: LORazepam 2 mg/mL INJ 1 mL 1 MG IVP (03:16)
[2020-08-26] MEDS: hyDRALAzine 20 mg/mL INJ 1 mL 10 MG IVP ×2 (03:17→23:06)
[2020-08-26] MEDS: ipratropium-albuterol 3 mL Neb INHALATION ×6 (03:51→23:46)
[2020-08-26 04:24] LABS: Basophils % 0.4 %; Eosinophils # 0.5 10^3/uL (0.0-0.8); Eosinophils % 4.6 %; Hematocrit 36.8 % (42.0-52.0); Hemoglobin 11.7 g/dL (11.7-16.6); Lymphocytes # 0.7 10^3/uL (0.8-4.8); Lymphocytes % 6.3 %; Mean Corpuscular HGB Conc 31.8 g/dL (30.0-36.0); Mean Corpuscular Hemoglobin 26.6 pg (28.0-34.0); Mean Corpuscular Volume 83.6 fL (80-94); Mean Platelet Volume 10.4 fL (7.4-10.4); Monocytes # 0.8 10^3/uL (0.2-0.9); Monocytes % 7.3 %; Neutrophils # 8.47 10^3/uL (1.8-7.7); Neutrophils % 80.3 %; Nucleated Red Blood Cells % 0 %; Platelet Count 251 10^3/cmm (130-400); Red Cell Distribution Width 14.4 % (12.1-15.1); White Blood Count 10.6 10^3/uL (4.0-10.0)
[2020-08-26 04:50] LABS: Fibrinogen 842 mg/dL (174-498)
[2020-08-26 04:51] LABS: D Dimer 2.94 ug/mIFEU (0-0.59)
[2020-08-26 06:52] LABS: Alanine Aminotransferase 10 U/L (0-41); Albumin Level 2.5 g/dL (3.5-5.2); Alkaline Phosphatase 72 IU/L (40-130); Anion Gap 25.5 (5-19); Aspartate Amino Transferase 16 U/L (0-40); C Reactive Protein 80.8 mg/L (0.0-4.9); Calcium 9.1 mg/dL (8.5-10.5); Carbon Dioxide 21 mmol/L (22-29); Chloride 107 mmol/L (98-107); Creatine Phosphokinase 99 U/L (39-308); Ferritin 529 ng/mL (30-400); Globulin 4.3 g/dL (1.3-4.6); Glomerular Filtration Rate 14.7 mL/min (90-130); Glucose 104 mg/dL (65-115); Lactate Dehydrogenase 388 U/L (135-225); Magnesium 2.1 mg/dL (1.7-2.3); NT Pro B Type Natriuretic Pept 18077 pg/mL (0-125); Potassium 3.5 mmol/L (3.5-5.1); Sodium 150 mmol/L (136-145); Total Bilirubin 0.4 mg/dL (0.15-1.2); Total Protein 6.8 g/dL (6.6-8.7)
[2020-08-26 07:12] LABS: Blood Urea Nitrogen 119 mg/dL (6-20); Osmolality Calculated 348 mOsm/kg (285-295); Phosphorus 8.2 mg/dL (2.5-4.5)
[2020-08-26] MEDS: dexamethasone 4 mg/mL INJ 6 MG IVP (07:20)
--- NOTE | 2020-08-26 07:31 | PC.NURSE ---
Fentanyl Drip was DCd yesterday. At that time Myself and Henny SCHERER witnessed me wasting the remaining amount of fentanyl in the bag/line.
[2020-08-26 08:17] LABS: Glucose Point of Care 92 mg/dL (70-110)
[2020-08-26] MEDS: budesonide 0.5 mg/2 mL Neb INHALATION ×2 (08:18→20:09)
[2020-08-26] MEDS: carvedilol 6.25 mg Tablet PO (08:28)
[2020-08-26] MEDS: hyDRALAzine 50 mg Tablet 75 MG PO (08:29)
[2020-08-26] MEDS: isosorbide mononitrate ER 30 mg Tablet PO (08:29)
[2020-08-26] MEDS: aspirin 81 mg EC Tablet PO (08:29)
[2020-08-26] MEDS: NIFEdipine ER (24 hr) 30 mg Tablet 60 MG PO (08:29)
--- NOTE | 2020-08-26 08:49 | PM.PN ---
Subjective Subjective: Interval history: more alert, verbal, follows simple commands, confused, hi flow 02 Medications: Reviewed: Yes Medication Review Details: Current Medications Albuterol/Ipratropium (Ipratropium-Albuterol 3 Ml Neb) 3 ml INHALATION Q4H.RESPIRATORY [facility] Last Admin: 08/26/20 08:18 Dose: 3 ml Documented by: Artificial Tears (Artificial Tears Op Soln 15 Ml Btl) 1 drop EYE-BOTH BEDTIME [facility] Last Admin: 08/25/20 20:23 Dose: 1 drop Documented by: Aspirin (Aspirin 81 Mg Ec Tablet) 81 mg PO DAILY [facility] Last Admin: 08/26/20 08:29 Dose: 81 mg Documented by: Budesonide (Budesonide 0.5 Mg/2 Ml Neb) 0.5 mg INHALATION BID.RESPIRATORY [facility] Last Admin: 08/26/20 08:18 Dose: 0.5 mg Documented by: Carvedilol (Carvedilol 6.25 Mg Tablet) 12.5 mg PO BIDPC [facility] Clonidine HCl (Clonidine 0.2 Mg/24 Hr Patch) 1 patch TRANSDERMA Q7D [facility] Last Admin: 08/25/20 12:14 Dose: 1 patch Documented by: Dexamethasone (Dexamethasone 4 Mg/Ml Inj) 6 mg IVP Q24H [facility] Last Admin: 08/26/20 07:20 Dose: 6 mg Documented by: Dextrose (Dextrose 50% Syringe 50 Ml) 25 ml IVP ONCE PRN; Protocol PRN Reason: hypoglycemia protocol Dextrose (Dextrose 50% Syringe 50 Ml) 50 ml IVP PRN PRN; Protocol PRN Reason: hypoglycemia protocol Enoxaparin Sodium (Enoxaparin 120 Mg/0.8 Ml Syringe) 120 mg SUBCUT Q24H [facility] Last Admin: 08/25/20 15:25 Dose: 120 mg Documented by: Famotidine (Famotidine 20 Mg/2 Ml Inj) 20 mg IVP Q12H [facility] Last Admin: 08/26/20 00:30 Dose: 20 mg Documented by: Glucagon (Glucagon 1 Mg/Ml Inj 1 Ml) 1 mg IM ONCE PRN; Protocol PRN Reason: Adult Acute Hypoglycemia Prot. Hydralazine HCl (Hydralazine 20 Mg/Ml Inj 1 Ml) 10 mg IVP Q4H PRN PRN Reason: for SB/P Greater then 160 Last Admin: 08/26/20 03:17 Dose: 10 mg Documented by: Hydralazine HCl (Hydralazine 50 Mg Tablet) 75 mg PO TID [facility] Last Admin: 08/26/20 08:29 Dose: 75 mg Documented by: Dextrose (D5w) 500 mls @ 100 mls/hr IV ONCE PRN; Protocol PRN Reason: Adult Acute Hypoglycemia Prot Imipenem/Cilastatin Sodium 250 (mg/ Sodium Chloride) 100 mls @ 200 mls/hr IV Q6H [facility]; Protocol Last Admin: 08/26/20 08:29 Dose: 200 mls/hr Documented by: Dexmedetomidine HCl 400 mcg/ (Sodium Chloride) 104 mls @ 0 mls/hr IV .Q0M [facility]; Protocol Last Titration: 08/25/20 07:52 Dose: 0 mcg/kg/hr, 0 mls/hr Documented by: Remdesivir 100 mg/ Sodium (Chloride) 100 mls @ 100 mls/hr IV Q24H [facility] Stop: 08/27/20 18:59 Last Infusion: 08/25/20 18:51 Dose: Infused Documented by: Fluconazole (Diflucan Premix) 200 mg in 100 mls @ 100 mls/hr IV Q24H [facility] Last Infusion: 08/25/20 15:59 Dose: Infused Documented by: Vancomycin/PEG/NADA/Lysine/Water (Vancocin) 1,500 mg in 300 mls @ 200 mls/hr IV Q48H [facility] Potassium Chloride/Dextrose (Dextrose 5% + Kcl 20 Meq) 20 meq in 1,000 mls @ 100 mls/hr IV .Q10H [facility] Insulin Aspart (Insulin Aspart 100 Unit/1 Ml) 0 unit SUBCUT WM&BEDTIME [facility]; Protocol Last Admin: 08/26/20 08:29 Dose: Not Given Documented by: Isosorbide Mononitrate (Isosorbide Mononitrate Er 30 Mg Tablet) 30 mg PO DAILY [facility] Last Admin: 08/26/20 08:29 Dose: 30 mg Documented by: Nifedipine (Nifedipine Er (24 Hr) 30 Mg Tablet) 60 mg PO DAILY [facility] Last Admin: 08/26/20 08:29 Dose: 60 mg Documented by: Olanzapine (Olanzapine 5 Mg Odt) 5 mg PO BEDTIME [facility] Last Admin: 08/25/20 20:24 Dose: 5 mg Documented by: Vitals/I&O/Wt Last Vital Signs Temp 98.6 F 08/24/20 04:00 Pulse 99 08/26/20 08:20 Resp 18 08/26/20 08:20 BP 195/96 08/25/20 15:30 Pulse Ox 93 08/26/20 08:20 08/25/20 08/26/20 08/26/20 22:59 06:59 14:59 Intake Total 400 / 623.626 100 / 723.626 Output Total 450 / 3400 1475 / 4875 Balance -50 / -2776.374 -1375 / -4151.374 Weight last 48 hrs Weight 149.187 kg Physical Exam Narrative: EXAM NARRATIVE: on hi flow 02, comfortable sitting up- confused heent- ncat neck supple lungs improved air movement b/l heart reg, +YAS abd soft, nt, nd, + bs ext dec edema b/l neuro- a,a, o x 1, slow, moves, confused pulses + b/l Urinary Catheter Management^: Melgar: Cath Placed During This Visit: yes Reason for Continuing Indwelling Catheter: Accurate Measurement of Urinary Output in Critically Ill Patients Urinary Catheter Date of Insertion: 08/19/20 Urinary Catheter Time of Insertion: : Data : 08/26/20 04:00 08/26/20 03:06 Micro: Microbiology 08/24/20 08:40 Gram Stain - Final Sputum - Endotracheal Tube Aspirate Sputum Culture - Preliminary Yeast species A&P Additional A&P Information 1. KAYLEEN - Consistent with ATN/Covid nephropathy. -excellent diuresis- hold lasix and monitor uop, chemistries, cr Avoid usual nephrotoxic agents Strict I's and O's Dose medications for GFR less than 15 -bun should improve off of diuretics and w/ fluids -avoid hypotension 2. hypernatremia andd high bun- start d5w 3. replete k- from post ATN diuresis 4. covid-19 pna -remdesivir per medicine/ pulm- monitor lfts, hi-flow 02- per pulm Primaxin, Levaquin, Vanco on board -monitor vanco level, keep trough under 19 -yesterday was 29- dec dose Dexamethasone on board -leukocytosis improving 5. hyperphosphatemia- improving as ATN improves 6. hgb okay 7. elevated pro-bnp noted- however having a significant diuresis 8. meds reviewed Patient seen and examined via telemedicine, with the assistance of the bedside RN > 25 min spent in evaluation and mgmt of patient Attestations Medical Necessity Statement*: covid-19 pna, kayleen, hypernatremia, hi-flow 02 dep Time Spent in Patient Care: 16 - 35 minutes Coding Level of Care Code Acute Rd Manager for Patricia Ried
[2020-08-26] MEDS: dextrose 5% + KCl 20 mEq 20 MEQ/1,000 ML BAG 100 MEQ IV ×2 (09:46→23:16)
[2020-08-26 11:56] LABS: Glucose Point of Care 107 mg/dL (70-110)
[2020-08-26 12:14] LABS: Glucose Point of Care 175 mg/dL (70-110)
[2020-08-26] MEDS: fluconazole premix 200 MG/100 ML PREMIX 100 MG IV (12:39)
[2020-08-26] MEDS: nystatin 100,000 unit/mL UDC 5 mL 400000 UNIT PO ×3 (13:58→20:41)
--- NOTE | 2020-08-26 15:25 | PM.PN ---
Subjective Subjective: Interval history: No acute events overnight. In last 24 hours patient was extubated successfully. Currently on 8 L high flow nasal cannula sitting in semifowler position in bed saturating 94%. Patient is able to follow commands though fairly weak. He is awake alert and having complete conversation with me. Urine output documented. Denies any nausea, vomiting, headache. Tolerating full liquid diet well. Blood pressures overnight has remained on the higher side. Medications: Reviewed: Yes Vitals/I&O/Wt Last Vital Signs Temp 98.6 F 08/24/20 04:00 Pulse 101 H 08/26/20 13:00 Resp 22 H 08/26/20 13:00 BP 187/100 08/26/20 13:00 Pulse Ox 93 08/26/20 13:00 08/26/20 08/26/20 08/26/20 06:59 14:59 22:59 Intake Total 100 / 723.626 600 / 600 Output Total 1475 / 4875 750 / 750 Balance -1375 / -4151.374 -150 / -150 Weight last 48 hrs Weight 149.187 kg Physical Exam Narrative: EXAM NARRATIVE: General: Weak, AO x3, frail HEENT: PERRLA, pupils bilaterally equal and reactive Chest: Bilateral lower zone decreased breath sounds, bilateral crackles present all over the lung ray with occasional bronchial breath sounds CVS: S1-S2 regular, pansystolic murmur at the apex, no tachycardia, no gallops, no rubs Abdomen: Soft, obese, nontender, no organomegaly, bowel sounds present Neuro: Pupils bilaterally equal and reactive, no facial deformity, moving all limbs appropriately. 3/5 power bilaterally. Extremities: Bilateral lower limb edema present 1+ up to midcalf though improving Urinary Catheter Management^: Melgar: Cath Placed During This Visit: yes Reason for Continuing Indwelling Catheter: Accurate Measurement of Urinary Output in Critically Ill Patients Urinary Catheter Date of Insertion: 08/19/20 Urinary Catheter Time of Insertion: 02:27 Data : 08/26/20 04:00 08/26/20 03:06 Micro: Microbiology 08/24/20 08:40 Gram Stain - Final Sputum - Endotracheal Tube Aspirate Sputum Culture - Preliminary Yeast species A&P Assessment and plan (1) ARDS (adult respiratory distress syndrome): Status: Acute (2) Acute respiratory failure with hypoxia and hypercapnia: Status: Acute (3) Sepsis: Plan as 1 Status: Acute (4) Pneumonia due to 2019-nCoV: Status: Acute (5) Acute exacerbation of CHF (congestive heart failure): Status: Acute (6) CHF (congestive heart failure), NYHA class III: Status: Acute Qualifiers: Congestive heart failure type: diastolic Congestive heart failure chronicity: chronic Qualified Code(s): I50.32 - Chronic diastolic (congestive) heart failure (7) KAYLEEN (acute kidney injury): Status: Acute (8) Hypernatremia: Status: Acute (9) Anemia: Status: Acute (10) Cardiac arrest: 1 Cycle CPR No Epi Given No shock Delivered No hypothermia protocol initiated Status: Acute Additional A&P Information Hypoxic respiratory failure/ARDS secondary to COVID-19 pneumonia and decompensated heart failure with most likely superadded bacterial infection: Post cardiac arrest: Extubated on 08/25 Continue with heated high flow while trying to wean off oxygen keeping saturation more than 90%. Continue with imipenem current dose. Vanco level still high. Repeat in AM. Continue to hold off on vancomycin for now. Will start once levels appropriate. Continue follow blood culture, urine culture, sputum culture. Sputum culture from ET tube growing yeast. Will ask lab to speciate. For now start patient on fluconazole 200 mg orally daily for atleast 10 days. Nystatin squish and swallow. Patient is Covid positive. Continue remdesivir to finish a 5-day course. Potential benefit versus risk factors due to KAYLEEN discussed in detail with both control tower radio operator and patient in detail. They are agreeing for starting remdesivir for now. We will continue to monitor renal functions. Continue with dexamethasone 6 mg IV daily. DuoNebs every 4 hours, budesonide twice daily. Vitamin C 1000 mg once a day, zinc. Acute kidney injury: Most likely secondary to post cardiac arrest status, severe sepsis. Most likely ATN. Patient having good urine output most likely from diuretic phase of ATN. Continue to monitor urine output. We will hold off on any further diuretics for today. If urine output drops less than 100 cc/h will decide about repeating Lasix. Hypernatremia: Sodium was 150 today. Most likely because of excessive diuresis. Cannot check urine lites as patient has been on diuretics. Start patient on D5 @ 100 cc/hr. Repeat BMP @ 1600 Last echocardiogram from September 2019 shows grade 1 diastolic dysfunction with 56% EF with moderate MR. Repeat echocardiogram done during this admission poor study but most likely similar results with mild pericardial effusion. Pericardial effusion most likely due to post cardiac arrest/CPR status. Appreciate nephrology and pulmonology recommendation. Nutrition: We will do speech and swallow evaluation during the day today and advance diet accordingly. Continue with famotidine and GI prophylaxis. Hypertension: Goal blood pressure less than 140/90 mmHg. Blood pressure continues to remain elevated. Continue with current medications including hydralazine 100 mg 3 times daily, increase Coreg to 12.5 mg twice daily, continue with nifedipine 60 mg daily. Start home dose of clonidine 0.2 3 times a day. Insulin sliding scale before meals and at bedtime. Full code Advance to GI soft diet as patient is tolerating clear liquids well. Full dose Lovenox. PT evaluation today. Severely guarded prognosis. Please avoid sedation medications overnight. Patient's care discussed in detail with his Ms. Johansen. All the questions were answered. Attestations Medical Necessity Statement*: Requires further hospitalization for management of ARDS secondary to COVID-19 pneumonia, post extubation care, acute kidney injury, hypernatremia, elevated blood pressures. Critical Care Time: Critical Care Time (min): 70 Coding Level of Care Code Acute Washing Tub Operator for [facility] Fwd Diagnoses ARDS (adult respiratory distress syndrome) J80 Acute respiratory failure with hypoxia and hypercapnia J96.01; J96.02 Sepsis A41.9 Pneumonia due to 2019-nCoV U07.1; J12.89 Acute exacerbation of CHF (congestive heart failure) I50.9 CHF (congestive heart failure), NYHA class III I50.32 Congestive heart failure type: diastolic Congestive heart failure chronicity: chronic KAYLEEN (acute kidney injury) N17.9 Hypernatremia E87.0 Anemia D64.9 Cardiac arrest I46.9
[2020-08-26] MEDS: cloNIDine 0.1 mg Tablet 0.2 MG PO ×2 (15:46→20:40)
[2020-08-26] MEDS: hyDRALAzine 50 mg Tablet 100 MG PO ×2 (15:46→20:40)
[2020-08-26] MEDS: enoxaparin 120 mg/0.8 mL Syringe SUBCUT (15:54)
[2020-08-26 17:21] LABS: Glucose Point of Care 190 mg/dL (70-110)
[2020-08-26 17:39] LABS: Carbon Dioxide 22 mmol/L (22-29); Chloride 107 mmol/L (98-107); Glomerular Filtration Rate 16.9 mL/min (90-130); Glucose 216 mg/dL (65-115); Osmolality Calculated 344 mOsm/kg (285-295); Sodium 146 mmol/L (136-145)
[2020-08-26 17:41] LABS: Anion Gap 21.3 (5-19); Potassium 4.3 mmol/L (3.5-5.1)
[2020-08-26 17:46] LABS: Blood Urea Nitrogen 111 mg/dL (6-20)
[2020-08-26] MEDS: remdesivir 100 MG in sodium chloride 0.9% (100 ml) 100 ML IV (18:07)
[2020-08-26] MEDS: carvedilol 12.5 mg Tablet PO (18:11)
[2020-08-26] MEDS: OLANZapine 5 mg ODT PO (20:41)
[2020-08-26] MEDS: artificial tears Op Soln 15 mL Btl 1 DROP EYE-BOTH (21:05)
[2020-08-26 21:07] LABS: Glucose Point of Care 134 mg/dL (70-110)
[2020-08-27] VITALS (29 sets, daily range): BP systolic 115–192; BP diastolic 71–99; PULSE 77–102; RESP 14–26; TEMP 36.6–36.8; O2SAT 91–96
[2020-08-27] MEDS: famotidine 20 mg/2 mL INJ IVP ×2 (00:28→13:02)
[2020-08-27] MEDS: ipratropium-albuterol 3 mL Neb INHALATION ×2 (04:07→07:27)
[2020-08-27] MEDS: dexamethasone 4 mg/mL INJ 6 MG IVP (04:16)
[2020-08-27 05:22] LABS: Basophils # 0.1 10^3/uL (0.0-0.1); Basophils % 0.5 %; Eosinophils # 0.4 10^3/uL (0.0-0.8); Eosinophils % 4.2 %; Hematocrit 38.5 % (42.0-52.0); Lymphocytes # 0.7 10^3/uL (0.8-4.8); Lymphocytes % 6.7 %; Mean Corpuscular HGB Conc 31.2 g/dL (30.0-36.0); Mean Corpuscular Hemoglobin 26.5 pg (28.0-34.0); Mean Platelet Volume 10.8 fL (7.4-10.4); Monocytes # 0.9 10^3/uL (0.2-0.9); Monocytes % 8.1 %; Neutrophils % 79.6 %; Nucleated Red Blood Cells % 0 %; Platelet Count 267 10^3/cmm (130-400); Red Blood Count 4.53 10^6/uL (4.1-5.3); Red Cell Distribution Width 14.5 % (12.1-15.1); White Blood Count 10.6 10^3/uL (4.0-10.0)
[2020-08-27 05:36] LABS: Fibrinogen 746 mg/dL (174-498)
[2020-08-27 05:45] LABS: Alanine Aminotransferase 10 U/L (0-41); Albumin Level 2.4 g/dL (3.5-5.2); Alkaline Phosphatase 74 IU/L (40-130); Aspartate Amino Transferase 14 U/L (0-40); C Reactive Protein 99.1 mg/L (0.0-4.9); Calcium 8.9 mg/dL (8.5-10.5); Carbon Dioxide 24 mmol/L (22-29); Chloride 106 mmol/L (98-107); Creatine Phosphokinase 62 U/L (39-308); Ferritin 513 ng/mL (30-400); Globulin 4.4 g/dL (1.3-4.6); Glomerular Filtration Rate 16.9 mL/min (90-130); Glucose 164 mg/dL (65-115); Osmolality Calculated 338 mOsm/kg (285-295); Phosphorus 6.6 mg/dL (2.5-4.5); Sodium 146 mmol/L (136-145); Total Bilirubin 0.4 mg/dL (0.15-1.2); Total Protein 6.8 g/dL (6.6-8.7)
[2020-08-27 05:51] LABS: Vancomycin Random 19.1 ug/mL (20.0-40.0)
[2020-08-27 06:17] LABS: Anion Gap 20.2 (5-19); Blood Urea Nitrogen 102 mg/dL (6-20); Lactate Dehydrogenase 392 U/L (135-225); Potassium 4.2 mmol/L (3.5-5.1)
--- NOTE | 2020-08-27 06:45 | PC.NURSE ---
Uneventful night, required 1 dose PRN Hydralizine during the night, AO x4, follows commands, movements are weak, denies SOB, tolorating NC 4L
[2020-08-27 07:02] LABS: Glucose Point of Care 146 mg/dL (70-110)
[2020-08-27] MEDS: budesonide 0.5 mg/2 mL Neb INHALATION (07:27)
--- NOTE | 2020-08-27 09:00 | PC.NURSE ---
MAR admin delay due to assisting pt with meal.
[2020-08-27] MEDS: nystatin 100,000 unit/mL UDC 5 mL 400000 UNIT PO ×4 (09:09→20:35)
[2020-08-27] MEDS: cloNIDine 0.1 mg Tablet 0.2 MG PO ×3 (09:10→20:35)
[2020-08-27] MEDS: aspirin 81 mg EC Tablet PO (09:10)
[2020-08-27] MEDS: hyDRALAzine 50 mg Tablet 100 MG PO ×3 (09:11→20:35)
[2020-08-27] MEDS: carvedilol 12.5 mg Tablet PO (09:11)
[2020-08-27] MEDS: NIFEdipine ER (24 hr) 30 mg Tablet 60 MG PO (09:11)
[2020-08-27] MEDS: isosorbide mononitrate ER 30 mg Tablet PO (09:11)
--- NOTE | 2020-08-27 09:19 | PM.PN ---
Subjective Subjective: Interval history: No new complaints Medications: Reviewed: Yes Vitals/I&O/Wt Last Vital Signs Temp 97.8 F 08/27/20 04:00 Pulse 96 08/27/20 07:36 Resp 26 H 08/27/20 07:28 BP 144/84 08/27/20 04:00 Pulse Ox 92 08/27/20 07:28 08/26/20 08/27/20 08/27/20 22:59 06:59 14:59 Intake Total 1950 / 2550 100 / 2650 Output Total 1525 / 2275 4200 / 6475 Balance 425 / 275 -4100 / -3825 Physical Exam Const: COMMON NORMALS: no acute distress ORIENTATION/CONSCIOUSNESS: Yes awake Extremity: GENERAL: Yes edema (trace) Urinary Catheter Management^: Melgar: Cath Placed During This Visit: yes Reason for Continuing Indwelling Catheter: Accurate Measurement of Urinary Output in Critically Ill Patients Urinary Catheter Date of Insertion: 08/19/20 Urinary Catheter Time of Insertion: 02:27 Data : 08/27/20 04:45 08/27/20 04:45 Other Labs: phos 6.6, calcium 8.9, albumin 2.4, Mg 2.0 vanco 19.1 A&P Additional A&P Information 1. Acute kidney injury: improving, good urine output 2. Hypernatremia, continue IVF D5W 3. Hyperphosphatemia, improving 4. COVID pneumonia Attestations Medical Necessity Statement*: per primary service Time Spent in Patient Care: 16 - 35 minutes Coding Level of Care Code Acute Flat Lock Machine Operator for Patricia Reid
--- NOTE | 2020-08-27 09:38 | P.PN_ITS ---
Subjective Subjective: Interval history: No acute events overnight. On examination patient doing a lot better today. His blood pressures have been better controlled mostly ranging from 140 systolic to 160 systolics. Today morning on examination he is on 4 L oxygen nasal cannula saturating 94%. Patient is awake alert oriented seems more energetic than yesterday but continues to remain very weak. Documented urine output in last 24 hours or around 5 L. Vitals/I&O/Wt Last Vital Signs Temp 97.8 F 08/27/20 04:00 Pulse 96 08/27/20 07:36 Resp 26 H 08/27/20 07:28 BP 168/96 08/27/20 09:10 Pulse Ox 92 08/27/20 07:28 08/26/20 08/27/20 08/27/20 22:59 06:59 14:59 Intake Total 1950 / 2550 100 / 2650 Output Total 1525 / 2275 4200 / 6475 Balance 425 / 275 -4100 / -3825 Physical Exam Narrative: EXAM NARRATIVE: General: Weak, AO x3, frail HEENT: PERRLA, pupils bilaterally equal and reactive Chest: Bilateral lower zone decreased breath sounds, bilateral crackles present all over the lung ray with occasional bronchial breath sounds CVS: S1-S2 regular, pansystolic murmur at the apex, no tachycardia, no gallops, no rubs Abdomen: Soft, obese, nontender, no organomegaly, bowel sounds present Neuro: Pupils bilaterally equal and reactive, no facial deformity, moving all limbs appropriately. 3/5 power bilaterally. Extremities: Bilateral lower limb edema present 1+ up to midcalf though improving Urinary Catheter Management^: Melgar: Cath Placed During This Visit: yes Reason for Continuing Indwelling Catheter: Accurate Measurement of Urinary Output in Critically Ill Patients Urinary Catheter Date of Insertion: 08/19/20 Urinary Catheter Time of Insertion: 02:27 Data : 08/27/20 04:45 08/27/20 04:45 A&P Assessment and plan (1) ARDS (adult respiratory distress syndrome): Status: Acute (2) Acute respiratory failure with hypoxia and hypercapnia: Status: Acute (3) Sepsis: Plan as 1 Status: Acute (4) Pneumonia due to 2019-nCoV: Status: Acute (5) Acute exacerbation of CHF (congestive heart failure): Status: Acute (6) CHF (congestive heart failure), NYHA class III: Status: Acute Qualifiers: Congestive heart failure chronicity: chronic Congestive heart failure type: diastolic Qualified Code(s): I50.32 - Chronic diastolic (congestive) heart failure (7) KAYLEEN (acute kidney injury): Status: Acute (8) Hypernatremia: Status: Acute (9) Anemia: Status: Acute (10) Cardiac arrest: 1 Cycle CPR No Epi Given No shock Delivered No hypothermia protocol initiated Status: Acute (11) Physical deconditioning: Status: Acute Additional A&P Information Hypoxic respiratory failure/ARDS secondary to COVID-19 pneumonia and decompensated heart failure with most likely superadded bacterial infection: Post cardiac arrest: Extubated on 08/25 Improving quite drastically. Currently on 4 L oxygen supplementation. We will continue to wean keeps keeping saturation over 92%. Continue imipenem and vancomycin. Vanco trough levels 19.1 so we will start him on 1500 every 48 hours. Will consult pharmacy for further dosing. Day 9 of antibiotics. Most likely will continue antibiotics for 24 more hours and then stop and monitor patient for 24 more hours after that for any hemodynamic instability or fevers or leukocytosis. Continue with fluconazole as per ET tube cultures of yeast. Continue with nystatin swish and swallow for oral thrush. Patient is Covid positive. Continue remdesivir to finish a 5-day course. Last dose today. Potential benefit versus risk factors due to KAYLEEN discussed in detail with both ophthalmic technician apprentice and patient in detail. They are agreeing for starting remdesivir for now. We will continue to monitor renal functions. Continue with dexamethasone 6 mg IV daily. Will transition over to oral steroids from tomorrow. Most likely patient will need a slow taper as an outpatient. DuoNebs every 4 hours, budesonide twice daily. Vitamin C 1000 mg once a day, zinc. Acute kidney injury: Diuretic phase of ATN. Almost 5 L urine output in last 24 hours. Renal renal functions mildly improving. Hold off on further diuretics for now. Continue monitor BMP. Aggressive pulmonary toilet with incentive spirometry, Acapella, chest vest. Hypernatremia: Resolving. Most likely because of excessive diuresis. Cannot check urine lites as patient has been on diuretics. Start patient on D5 @ 100 cc/hr. Repeat BMP @ 1600 Last echocardiogram from September 2019 shows grade 1 diastolic dysfunction with 56% EF with moderate MR. Repeat echocardiogram done during this admission poor study but most likely similar results with mild pericardial effusion. Pericardial effusion most likely due to post cardiac arrest/CPR status. Appreciate nephrology and pulmonology recommendation. Nutrition: Continue with GI soft diet for now along with Ensure with each meal. Hypertension: Goal blood pressure less than 140/90 mmHg. Blood pressures better today but mildly elevated. For now we will continue to monitor on current treatment. Continue with current medications including hydralazine 100 mg 3 times daily, increase Coreg to 12.5 mg twice daily, continue with nifedipine 60 mg daily. Start home dose of clonidine 0.2 3 times a day. Insulin sliding scale before meals and at bedtime. Full code GI soft diet with Ensure Full dose Lovenox. PT evaluation today. Out of bed to chair. Please avoid sedation medications overnight. Patient's care discussed in detail with his Ms. Johansen and daughter Ms. Gross on phone. We discussed that Mr. Velasco is improving quite drastically and is down to 4 L oxygen supplementation. His kidney functions are steadily improving with a good urine output. Also discussed that his sodium levels are also improving. Discussed that patient has severe deconditioning for which he will need to continue physical therapy even as an outpatient for at least couple of months. Because of severe generalized deconditioning, baseline poor health SNF was recommended to the patient. Case management to follow. Attestations Medical Necessity Statement*: Patient needs further hospitalization for management of resolving hypoxic respiratory failure because of COVID-19 pneumonia and congestive heart failure, KAYLEEN, hypernatremia, severe generalized deconditioning. Time Spent in Patient Care: Greater than 35 minutes (>than 50% of time spent in counselling and/or direct pt care on unit) . Coding Level of Care Code Acute Land Development Project Manager for [facility] Diagnoses ARDS (adult respiratory distress syndrome) J80 Acute respiratory failure with hypoxia and hypercapnia J96.01; J96.02 Sepsis A41.9 Pneumonia due to 2019-nCoV U07.1; J12.89 Acute exacerbation of CHF (congestive heart failure) I50.9 CHF (congestive heart failure), NYHA class III I50.32 Congestive heart failure chronicity: chronic Congestive heart failure type: diastolic KAYLEEN (acute kidney injury) N17.9 Hypernatremia E87.0 Anemia D64.9 Cardiac arrest I46.9 Physical deconditioning R53.81
--- NOTE | 2020-08-27 10:54 | PC.NURSE ---
Patient gave verbal consent for his sister Claudine Velasco to get information.
[2020-08-27 12:12] LABS: Glucose Point of Care 274 mg/dL (70-110)
[2020-08-27 12:14] LABS: Procalcitonin 0.56 ng/mL (0-0.5)
--- NOTE | 2020-08-27 13:00 | PC.NURSE ---
MAR other delay due to assisting pt with meal.
[2020-08-27] MEDS: dextrose 5% + KCl 20 mEq 20 MEQ/1,000 ML BAG 100 MEQ IV (13:03)
[2020-08-27] MEDS: fluconazole premix 200 MG/100 ML PREMIX 100 MG IV (13:22)
[2020-08-27] MEDS: enoxaparin 120 mg/0.8 mL Syringe SUBCUT (15:21)
[2020-08-27] MEDS: vancomycin 1,500 MG/300 ML PIGGYBACK 200 MG IV (16:19)
[2020-08-27 17:38] LABS: Glucose Point of Care 135 mg/dL (70-110)
[2020-08-27] MEDS: carvedilol 25 mg Tablet PO (17:40)
[2020-08-27] MEDS: remdesivir 100 MG in sodium chloride 0.9% (100 ml) 100 ML IV (18:22)
--- NOTE | 2020-08-27 19:02 | PC.NURSE ---
Shift summary: Pt alert. Pt now on 2lpm/NC. No shortness of breath or respiratory distress noted throughout the day. Pt very weak. Pt needs assistance eating He has difficulty holding bed rails to assist with turning. He has a low motivation level to assist himself. He was out of bed to chair today, nadia lift used. Physical Therapy done today. He as been incontinent of Bm three times today. Urine output of 1950ml noted this shift.
--- NOTE | 2020-08-27 19:21 | PC.NURSE ---
Report given to GILMER Gardner
[2020-08-27 20:03] LABS: Glucose Point of Care 138 mg/dL (70-110)
[2020-08-27] MEDS: OLANZapine 5 mg ODT PO (20:35)
[2020-08-27] MEDS: artificial tears Op Soln 15 mL Btl 1 DROP EYE-BOTH (20:37)
[2020-08-27 21:20] LABS: Glucose Point of Care 180 mg/dL (70-110)
[2020-08-28] VITALS (22 sets, daily range): BP systolic 105–174; BP diastolic 65–97; PULSE 73–90; RESP 14–27; TEMP 36.4–36.9; O2SAT 92–96
[2020-08-28] MEDS: famotidine 20 mg/2 mL INJ IVP ×3 (00:13→23:54)
[2020-08-28] MEDS: hyDRALAzine 20 mg/mL INJ 1 mL 10 MG IVP ×2 (02:04→06:02)
[2020-08-28] MEDS: dexamethasone 4 mg/mL INJ 6 MG IVP (04:07)
[2020-08-28 05:02] LABS: Basophils # 0.1 10^3/uL (0.0-0.1); Basophils % 0.6 %; Eosinophils # 0.6 10^3/uL (0.0-0.8); Eosinophils % 6.1 %; Hematocrit 36.8 % (42.0-52.0); Hemoglobin 11.4 g/dL (11.7-16.6); Lymphocytes % 10.5 %; Mean Corpuscular Hemoglobin 26.5 pg (28.0-34.0); Mean Corpuscular Volume 85.6 fL (80-94); Mean Platelet Volume 10.9 fL (7.4-10.4); Monocytes # 0.7 10^3/uL (0.2-0.9); Monocytes % 7.7 %; Neutrophils # 7.07 10^3/uL (1.8-7.7); Neutrophils % 74.7 %; Nucleated Red Blood Cells % 0 %; Platelet Count 269 10^3/cmm (130-400); Red Cell Distribution Width 14.3 % (12.1-15.1); White Blood Count 9.5 10^3/uL (4.0-10.0)
--- NOTE | 2020-08-28 06:00 | XRR_ITS ---
PROCEDURE INFORMATION: Exam: XR Chest, 1 View Exam date and time: 08/28/2020 12:00 AM Age: 50 years old Clinical indication: Dyspnea; Additional info: Covid TECHNIQUE: Imaging protocol: XR of the chest Views: 1 view. COMPARISON: CR XR chest 1V portable [id number] 08/25/2020 8:33 AM FINDINGS: The thorax is partially obscured by overlying EKG leads. Lungs: Interstitial prominence without focal infiltrate. Pleural spaces: No pleural effusion. Heart/Mediastinum: Cardiomegaly. Diaphragm: Asymmetric elevation of the right hemidiaphragm. Bones/joints: Unremarkable. Other: Interval removal of endotracheal and feeding tubes. XR/XR chest 1V portable [id number] IMPRESSION: Interstitial prominence without focal infiltrate.
[2020-08-28 06:11] LABS: Alanine Aminotransferase 13 U/L (0-41); Albumin Level 2.5 g/dL (3.5-5.2); Alkaline Phosphatase 68 IU/L (40-130); Anion Gap 20.2 (5-19); Aspartate Amino Transferase 16 U/L (0-40); C Reactive Protein 67.6 mg/L (0.0-4.9); Calcium 8.7 mg/dL (8.5-10.5); Carbon Dioxide 25 mmol/L (22-29); Chloride 109 mmol/L (98-107); Ferritin 495 ng/mL (30-400); Glomerular Filtration Rate 18.6 mL/min (90-130); Glucose 118 mg/dL (65-115); Lactate Dehydrogenase 320 U/L (135-225); Magnesium 1.9 mg/dL (1.7-2.3); NT Pro B Type Natriuretic Pept 13788 pg/mL (0-125); Osmolality Calculated 342 mOsm/kg (285-295); Phosphorus 7.1 mg/dL (2.5-4.5); Potassium 4.2 mmol/L (3.5-5.1); Sodium 150 mmol/L (136-145); Total Bilirubin 0.3 mg/dL (0.15-1.2); Total Protein 6.5 g/dL (6.6-8.7)
--- NOTE | 2020-08-28 06:15 | PC.NURSE ---
uneventful night, required PRN Hydralizine x2 throughout shift for BP, eager to attempt to move self in bed, denies pain, denied SOB despite O2 needing to be increased from 2L NC to 4L NC, AO x4, follows commands
[2020-08-28 06:19] LABS: Blood Urea Nitrogen 99 mg/dL (6-20)
--- NOTE | 2020-08-28 06:22 | PC.NURSE ---
LAB reported critical BUN of 99, HCP not notified due to improved result of 102 from previous day and trending down
[2020-08-28 06:49] LABS: D Dimer 1.82 ug/mIFEU (0-0.59)
[2020-08-28 07:53] LABS: Glucose Point of Care 169 mg/dL (70-110)
[2020-08-28] MEDS: cloNIDine 0.1 mg Tablet 0.2 MG PO ×3 (08:53→20:44)
[2020-08-28] MEDS: aspirin 81 mg EC Tablet PO (08:53)
[2020-08-28] MEDS: nystatin 100,000 unit/mL UDC 5 mL 400000 UNIT PO ×4 (08:54→20:43)
[2020-08-28] MEDS: hyDRALAzine 50 mg Tablet 100 MG PO ×2 (08:54→15:27)
[2020-08-28] MEDS: NIFEdipine ER (24 hr) 30 mg Tablet 60 MG PO (08:54)
[2020-08-28] MEDS: carvedilol 25 mg Tablet PO ×2 (08:54→17:40)
[2020-08-28] MEDS: isosorbide mononitrate ER 30 mg Tablet PO (08:54)
--- NOTE | 2020-08-28 09:44 | PM.PN ---
Subjective Subjective: Interval history: In chair, no complaints. Denies thirst Medications: Reviewed: Yes Vitals/I&O/Wt Last Vital Signs Temp 98.4 F 08/28/20 09:04 Pulse 88 08/28/20 09:12 Resp 18 08/28/20 09:12 BP 144/85 08/28/20 09:01 Pulse Ox 92 08/28/20 09:12 08/27/20 08/28/20 08/28/20 22:59 06:59 14:59 Intake Total 800 / 2700 550 / 3250 940 / 940 Output Total 650 / 1950 1300 / 3250 550 / 550 Balance 150 / 750 -750 / 0 390 / 390 Weight last 48 hrs Weight 143.97 kg Physical Exam Const: COMMON NORMALS: no acute distress GENERAL APPEARANCE: cooperative Extremity: GENERAL: No edema Urinary Catheter Management^: Espinal: Cath Placed During This Visit: yes Reason for Continuing Indwelling Catheter: Accurate Measurement of Urinary Output in Critically Ill Patients Urinary Catheter Date of Insertion: 08/19/20 Urinary Catheter Time of Insertion: 02:27 Data : 08/28/20 04:20 08/28/20 04:20 Other Labs: phos 7.1, calcium 8.7, Mg 1.9, albumin 2.5 Micro: Microbiology 08/24/20 08:40 Gram Stain - Final Sputum - Endotracheal Tube Aspirate Sputum Culture - Preliminary Janis albicans A&P Additional A&P Information 1. Acute kidney injury: improving, good urine output, can remove espinal catheter 2. Hypernatremia, not improved after a couple of days of D5W at 100 ml/hr 3. Hyperphosphatemia, begin renvela 4. Hypertension, reasonably well-controlled Attestations Medical Necessity Statement*: per primary service Time Spent in Patient Care: Greater than 35 minutes Coding Level of Care Code Acute Termite Technician for Patricia Reid
[2020-08-28 11:54] LABS: Glucose Point of Care 157 mg/dL (70-110)
[2020-08-28 11:55] LABS: Glucose Point of Care 200 mg/dL (70-110)
[2020-08-28] MEDS: fluconazole premix 200 MG/100 ML PREMIX 100 MG IV (13:07)
[2020-08-28] MEDS: dextrose 5% + KCl 20 mEq 20 MEQ/1,000 ML BAG 100 MEQ IV (13:07)
[2020-08-28] MEDS: enoxaparin 120 mg/0.8 mL Syringe SUBCUT (15:27)
--- NOTE | 2020-08-28 16:36 | P.PN_ITS ---
Subjective Subjective: Interval history: Documents overnight. On examination today sitting up in chair talking on phone. Patient is able to have complete normalization without any difficulty in breathing. He is on 4 L nasal cannula saturating 96%. Blood pressure and heart rate a lot blood pressure maintained. Denies any nausea vomiting, headache. Good appetite but still continues to be very weak and deconditioned. Medications: Reviewed: Yes Vitals/I&O/Wt Last Vital Signs Temp 97.8 F 08/28/20 12:44 Pulse 87 08/28/20 12:42 Resp 27 H 08/28/20 12:42 BP 121/78 08/28/20 15:27 Pulse Ox 94 08/28/20 12:42 08/28/20 08/28/20 08/28/20 06:59 14:59 22:59 Intake Total 550 / 3250 1440 / 1440 Output Total 1300 / 3250 550 / 550 Balance -750 / 0 890 / 890 Weight last 48 hrs Weight 143.97 kg Physical Exam Narrative: EXAM NARRATIVE: General: Weak, AO x3, frail HEENT: PERRLA, pupils bilaterally equal and reactive Chest: Bilateral lower zone decreased breath sounds, bilateral crackles present all over the lung ray with occasional bronchial breath sounds CVS: S1-S2 regular, pansystolic murmur at the apex, no tachycardia, no gallops, no rubs Abdomen: Soft, obese, nontender, no organomegaly, bowel sounds present Neuro: Pupils bilaterally equal and reactive, no facial deformity, moving all limbs appropriately. 3/5 power bilaterally. Extremities: Bilateral lower limb edema present 1+ up to midcalf though improving Urinary Catheter Management^: Melgar: Cath Placed During This Visit: yes Reason for Continuing Indwelling Catheter: Accurate Measurement of Urinary Output in Critically Ill Patients Urinary Catheter Date of Insertion: 08/19/20 Urinary Catheter Time of Insertion: 02:27 Data : 08/28/20 04:20 08/28/20 04:20 Micro: Microbiology 08/24/20 08:40 Gram Stain - Final Sputum - Endotracheal Tube Aspirate Sputum Culture - Preliminary Janis albicans A&P Assessment and plan (1) ARDS (adult respiratory distress syndrome): Status: Acute (2) Acute respiratory failure with hypoxia and hypercapnia: Status: Acute (3) Sepsis: Plan as 1 Status: Acute (4) Pneumonia due to 2019-nCoV: Status: Acute (5) Acute exacerbation of CHF (congestive heart failure): Status: Acute (6) CHF (congestive heart failure), NYHA class III: Status: Acute Qualifiers: Congestive heart failure type: diastolic Congestive heart failure chronicity: chronic Qualified Code(s): I50.32 - Chronic diastolic (congestive) heart failure (7) KAYLEEN (acute kidney injury): Status: Acute (8) Hypernatremia: Status: Acute (9) Anemia: Status: Acute (10) Cardiac arrest: 1 Cycle CPR No Epi Given No shock Delivered No hypothermia protocol initiated Status: Acute (11) Physical deconditioning: Status: Acute Additional A&P Information Hypoxic respiratory failure/ARDS secondary to COVID-19 pneumonia and decompensat ed heart failure with most likely superadded bacterial infection: Post cardiac arrest: Extubated on 08/25 Improving quite drastically. Currently on 4 L oxygen supplementation. We will continue to wean keeps keeping saturation over 92%. Continue imipenem and vancomycin. Vanco trough levels 19.1 so we will start him on 1500 every 48 hours. Will consult pharmacy for further dosing. Last dose of antibiotics on August 30 to finish a 5-day course post extubation. Continue with fluconazole as per ET tube cultures of yeast. Will finish a 10- day course. Continue with nystatin swish and swallow for oral thrush. Patient has finished a 5-day course of remdesivir. Patient has received dexamethasone for more than 10 days. Will transition over to oral prednisone 10 mg daily for next 3 days followed by 5 mg for next 3 days for a taper. Continue with Advair, Spiriva. Vitamin C 1000 mg once a day, zinc. Continue with full dose Lovenox as per creatinine clearance. Acute kidney injury: Diuretic phase of ATN. Urine output plateauing now. Continues to remain 14 L negative since admission but intake and output documented equal in last 24 hours. We will continue to monitor. If needed will decrease the fluid rate tomorrow morning versus start him back on his diuretics in next 24 to 48 hours. Renal renal functions mildly improving. Hold off on further diuretics for now. Continue monitor BMP. Aggressive pulmonary toilet with incentive spirometry, Acapella, chest vest. Hypernatremia: Resolving. Most likely because of excessive diuresis. Cannot check urine lites as patient has been on diuretics. Start patient on D5 @ 100 cc/hr. Repeat BMP daily. Last echocardiogram from September 2019 shows grade 1 diastolic dysfunction with 56% EF with moderate MR. Repeat echocardiogram done during this admission poor study but most likely similar results with mild pericardial effusion. Pericardial effusion most likely due to post cardiac arrest/CPR status. Appreciate nephrology and pulmonology recommendation. Nutrition: Continue with GI soft diet for now along with Ensure with each meal. Hypertension: Goal blood pressure less than 140/90 mmHg. Blood pressures better today but mildly elevated. For now we will continue to monitor on current treatment. Continue with current medications including hydralazine 100 mg 3 times daily, increase Coreg to 12.5 mg twice daily, continue with nifedipine 60 mg daily. Start home dose of clonidine 0.2 3 times a day. Insulin sliding scale before meals and at bedtime. Full code GI soft diet with Ensure Full dose Lovenox. PT evaluation today. Out of bed to chair. Please avoid sedation medications overnight. Patient's care discussed in detail with his Ms. Johansen and daughter Ms. Gross on phone. We discussed that Mr. Velasco is improving quite drastically and is down to 4 L oxygen supplementation. His kidney functions are steadily improving with a good urine output. Also discussed that his sodium levels are also improving. Discussed that patient has severe deconditioning for which he will need to continue physical therapy even as an outpatient for at least couple of months. Because of severe generalized deconditioning, baseline poor health SNF was recommended to the patient. Case management to follow. Attestations Medical Necessity Statement*: Patient requires further hospitalization for management of hypoxic respiratory failure due to COVID-19 pneumonia in setting of congestive heart failure and obstructive sleep apnea, post extubation status, KAYLEEN and hypernatremia along with severe generalized deconditioning. Time Spent in Patient Care: Greater than 35 minutes Coding Level of Care Code Acute Wood Buffer for [facility] Fwd Diagnoses ARDS (adult respiratory distress syndrome) J80 Acute respiratory failure with hypoxia and hypercapnia J96.01; J96.02 Sepsis A41.9 Pneumonia due to 2019-nCoV U07.1; J12.89 Acute exacerbation of CHF (congestive heart failure) I50.9 CHF (congestive heart failure), NYHA class III I50.32 Congestive heart failure type: diastolic Congestive heart failure chronicity: chronic KAYLEEN (acute kidney injury) N17.9 Hypernatremia E87.0 Anemia D64.9 Cardiac arrest I46.9 Physical deconditioning R53.81
[2020-08-28 16:45] LABS: Glucose Point of Care 144 mg/dL (70-110)
[2020-08-28] MEDS: sevelamer 800 mg Tablet PO ×2 (17:40→20:44)
--- NOTE | 2020-08-28 18:29 | PC.NURSE ---
Shift summary: Pt alert and oriented. Spoke to family on phone a few times today He needed help with the fine motor to operate phone still. He had spent the majority of the shift out of bed in chair. He tolerated that well. Physical therapy came shortly before lunch and worked with him. He was able to do more today. He was able to fed himself today, albeit clumsily. VSS. Oxygen needs decreased, he is at 2lpm/NC. No respiratory distress or shortness of breath throughout shift. Urine output 1300ml of clear yellow urine. Pt incontinent of bowel twice
--- NOTE | 2020-08-28 19:12 | PC.NURSE ---
Report given to GILMER Warren.
[2020-08-28] MEDS: OLANZapine 5 mg ODT PO (20:44)
[2020-08-28] MEDS: hyDRALAzine 50 mg Tablet 75 MG PO (20:45)
[2020-08-28] MEDS: artificial tears Op Soln 15 mL Btl 1 DROP EYE-BOTH (20:54)
[2020-08-28 21:05] LABS: Glucose Point of Care 169 mg/dL (70-110)
[2020-08-29] VITALS (28 sets, daily range): BP systolic 126–169; BP diastolic 74–95; PULSE 72–90; RESP 16–27; TEMP 36.6–36.8; O2SAT 89–98
[2020-08-29 04:08] LABS: Basophils # 0.1 10^3/uL (0.0-0.1); Basophils % 0.6 %; Eosinophils # 0.5 10^3/uL (0.0-0.8); Eosinophils % 5.3 %; Hematocrit 33.3 % (42.0-52.0); Hemoglobin 10.2 g/dL (11.7-16.6); Lymphocytes # 1.1 10^3/uL (0.8-4.8); Lymphocytes % 12.4 %; Mean Corpuscular HGB Conc 30.6 g/dL (30.0-36.0); Mean Corpuscular Hemoglobin 26.7 pg (28.0-34.0); Mean Corpuscular Volume 87.2 fL (80-94); Mean Platelet Volume 11.3 fL (7.4-10.4); Monocytes # 0.7 10^3/uL (0.2-0.9); Monocytes % 7.4 %; Neutrophils # 6.52 10^3/uL (1.8-7.7); Neutrophils % 73.5 %; Nucleated Red Blood Cells % 0 %; Platelet Count 268 10^3/cmm (130-400); Red Blood Count 3.82 10^6/uL (4.1-5.3); Red Cell Distribution Width 14.1 % (12.1-15.1); White Blood Count 8.9 10^3/uL (4.0-10.0)
[2020-08-29 04:31] LABS: D Dimer 1.44 ug/mIFEU (0-0.59)
[2020-08-29 04:39] LABS: Alanine Aminotransferase 15 U/L (0-41); Albumin Level 2.3 g/dL (3.5-5.2); Alkaline Phosphatase 62 IU/L (40-130); Anion Gap 16.6 (5-19); Aspartate Amino Transferase 17 U/L (0-40); C Reactive Protein 37.6 mg/L (0.0-4.9); Calcium 8.3 mg/dL (8.5-10.5); Carbon Dioxide 24 mmol/L (22-29); Chloride 105 mmol/L (98-107); Globulin 3.3 g/dL (1.3-4.6); Glucose 136 mg/dL (65-115); Lactate Dehydrogenase 271 U/L (135-225); NT Pro B Type Natriuretic Pept 8925 pg/mL (0-125); Osmolality Calculated 325 mOsm/kg (285-295); Phosphorus 6.2 mg/dL (2.5-4.5); Potassium 4.6 mmol/L (3.5-5.1); Sodium 141 mmol/L (136-145); Total Bilirubin 0.2 mg/dL (0.15-1.2); Total Protein 5.6 g/dL (6.6-8.7)
[2020-08-29 05:38] LABS: Blood Urea Nitrogen 100 mg/dL (6-20)
[2020-08-29] MEDS: dextrose 5% + KCl 20 mEq 20 MEQ/1,000 ML BAG 100 MEQ IV (06:10)
--- NOTE | 2020-08-29 06:15 | PC.NURSE ---
Also reported patient's change in Na+today compared to the last Na result. New orders noted et implemented.
--- NOTE | 2020-08-29 07:09 | PM.PN ---
Subjective Subjective: Interval history: feels better. eating. still w/ edema. no n/v/f/c/acosta/cp. denies sob Medications: Reviewed: Yes Medication Review Details: Current Medications Artificial Tears (Artificial Tears Op Soln 15 Ml Btl) 1 drop EYE-BOTH BEDTIME [facility] Last Admin: 08/28/20 20:54 Dose: 1 drop Documented by: Aspirin (Aspirin 81 Mg Ec Tablet) 81 mg PO DAILY [facility] Last Admin: 08/28/20 08:53 Dose: 81 mg Documented by: Carvedilol (Carvedilol 25 Mg Tablet) 25 mg PO BIDPC [facility] Last Admin: 08/28/20 17:40 Dose: 25 mg Documented by: Clonidine HCl (Clonidine 0.1 Mg Tablet) 0.2 mg PO TID [facility] Last Admin: 08/28/20 20:44 Dose: 0.2 mg Documented by: Dextrose (Dextrose 50% Syringe 50 Ml) 25 ml IVP ONCE PRN; Protocol PRN Reason: hypoglycemia protocol Dextrose (Dextrose 50% Syringe 50 Ml) 50 ml IVP PRN PRN; Protocol PRN Reason: hypoglycemia protocol Enoxaparin Sodium (Enoxaparin 120 Mg/0.8 Ml Syringe) 120 mg SUBCUT Q24H [facility] Last Admin: 08/28/20 15:27 Dose: 120 mg Documented by: Famotidine (Famotidine 20 Mg/2 Ml Inj) 20 mg IVP Q12H [facility] Last Admin: 08/28/20 23:54 Dose: 20 mg Documented by: Fluconazole (Fluconazole 100 Mg Tablet) 200 mg PO DAILY [facility] Stop: 09/04/20 08:59 Glucagon (Glucagon 1 Mg/Ml Inj 1 Ml) 1 mg IM ONCE PRN; Protocol PRN Reason: Adult Acute Hypoglycemia Prot. Hydralazine HCl (Hydralazine 20 Mg/Ml Inj 1 Ml) 10 mg IVP Q4H PRN PRN Reason: for SB/P Greater then 160 Last Admin: 08/28/20 06:02 Dose: 10 mg Documented by: Hydralazine HCl (Hydralazine 50 Mg Tablet) 75 mg PO TID [facility] Last Admin: 08/28/20 20:45 Dose: 75 mg Documented by: Dextrose (D5w) 500 mls @ 100 mls/hr IV ONCE PRN; Protocol PRN Reason: Adult Acute Hypoglycemia Prot Imipenem/Cilastatin Sodium 250 (mg/ Sodium Chloride) 100 mls @ 200 mls/hr IV Q6H [place]; Protocol Stop: 08/30/20 10:00 Last Infusion: 08/29/20 04:04 Dose: Infused Documented by: Vancomycin/PEG/[place]DA/Lysine/Water (Vancocin) 1,500 mg in 300 mls @ 200 mls/hr IV Q48H [place] Stop: 08/30/20 12:00 Last Infusion: 08/27/20 18:04 Dose: Infused Documented by: Insulin Aspart (Insulin Aspart 100 Unit/1 Ml) 0 unit SUBCUT WM&BEDTIME [place]; Protocol Last Admin: 08/28/20 21:09 Dose: 4 unit Documented by: Isosorbide Mononitrate (Isosorbide Mononitrate Er 30 Mg Tablet) 30 mg PO DAILY [place] Last Admin: 08/28/20 08:54 Dose: 30 mg Documented by: Nifedipine (Nifedipine Er (24 Hr) 30 Mg Tablet) 60 mg PO DAILY [place] Last Admin: 08/28/20 08:54 Dose: 60 mg Documented by: Nystatin (Nystatin 100,000 Unit/Ml Udc 5 Ml) 400,000 unit PO QID [place] Last Admin: 08/28/20 20:43 Dose: 400,000 unit Documented by: Olanzapine (Olanzapine 5 Mg Odt) 5 mg PO BEDTIME [place] Last Admin: 08/28/20 20:44 Dose: 5 mg Documented by: Prednisone (Prednisone 10 Mg Tablet) 10 mg PO DAILY [place] Stop: 09/01/20 08:59 Prednisone (Prednisone 5 Mg Tablet) 5 mg PO DAILY [place] Stop: 09/04/20 08:59 Fluticasone/Salmeterol (Fluticasone-Salmeterol 250-50 Diskus) 1 puff INHALATION BID.RESPIRATORY [place] Last Admin: 08/28/20 20:32 Dose: 1 puff Documented by: Sevelamer Carbonate (Sevelamer 800 Mg Tablet) 800 mg PO TID [place] Last Admin: 08/28/20 20:44 Dose: 800 mg Documented by: Tiotropium [place] (Tiotropium 18 Mcg Mdi) 18 mcg INHALATION DAILY.RESPIRATORY [place] Last Admin: 08/28/20 09:01 Dose: 1 puff Documented by: Vitals/I&O/Wt Last Vital Signs Temp 97.8 F 08/29/20 00:00 Pulse 75 08/29/20 00:00 Resp 18 08/29/20 00:00 BP 142/76 08/29/20 00:00 Pulse Ox 94 08/29/20 00:00 08/28/20 08/29/20 08/29/20 22:59 06:59 14:59 Intake Total 560 / 2240 1100 / 3340 Output Total 1150 / 1700 Balance -590 / 540 1100 / 1640 Weight last 48 hrs Weight 143.97 kg Physical Exam Narrative: EXAM NARRATIVE: vss comfortable sitting up, NAD- 4L nco2 heent- ncat neck supple lungs crackles b/l heart reg, +YAS abd soft, nt, nd, + bs ext 1+ edema b/l, ankles/feet 2+ edema neuro- a,a, o x 2+, moves all ext, improving pulses + b/l Urinary Catheter Management^: Melgar: Cath Placed During This Visit: yes Reason for Continuing Indwelling Catheter: Accurate Measurement of Urinary Output in Critically Ill Patients Urinary Catheter Date of Insertion: 08/19/20 Urinary Catheter Time of Insertion: 02:27 Data : 08/29/20 03:00 08/29/20 03:00 A&P Additional A&P Information 1. Acute kidney injury: improving, good urine output -dec diuretics 2. 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 Hypernatremia,improved. monitor off of d5w 3. Hyperphosphatemia, improving w/ renvela 4. Hypertension, reasonably well-controlled -on many meds 5. covid-19 pna- s/p remdesivir 6. on vanco- monitor troughs, keep under 19 7. hgb acceptable - but falling 8. dm control 9. bnp improving Attestations Medical Necessity Statement*: covid-19 pna per medicine Time Spent in Patient Care: 16 - 35 minutes Coding Level of Care Code Acute Food Storeroom Clerk for Patricia Reid
[2020-08-29 08:16] LABS: Glucose Point of Care 125 mg/dL (70-110)
[2020-08-29 08:40] LABS: Ferritin 419 ng/mL (30-400)
[2020-08-29] MEDS: nystatin 100,000 unit/mL UDC 5 mL 400000 UNIT PO ×4 (08:44→21:07)
[2020-08-29] MEDS: isosorbide mononitrate ER 30 mg Tablet PO (08:44)
[2020-08-29] MEDS: sevelamer 800 mg Tablet PO ×3 (08:45→21:08)
[2020-08-29] MEDS: fluconazole 100 mg Tablet 200 MG PO (08:45)
[2020-08-29] MEDS: NIFEdipine ER (24 hr) 30 mg Tablet 60 MG PO (08:45)
[2020-08-29] MEDS: aspirin 81 mg EC Tablet PO (08:45)
[2020-08-29] MEDS: hyDRALAzine 50 mg Tablet 75 MG PO ×3 (08:45→21:06)
[2020-08-29] MEDS: cloNIDine 0.1 mg Tablet 0.2 MG PO ×3 (08:45→21:06)
[2020-08-29] MEDS: carvedilol 25 mg Tablet PO ×2 (08:46→17:01)
[2020-08-29] MEDS: predniSONE 10 mg Tablet PO (08:46)
[2020-08-29 11:35] LABS: Glucose Point of Care 128 mg/dL (70-110)
[2020-08-29] MEDS: famotidine 20 mg/2 mL INJ IVP (12:31)
--- NOTE | 2020-08-29 16:47 | PM.PN ---
Subjective Subjective: Interval history: No acute events overnight. Patient doing a lot better. He is on 3 L nasal cannula saturating more than 92%. Sitting up in chair. Seems more energetic. Denies any nausea, vomiting, headache. Mentation has improved and blood pressures are a lot better now. Medications: Reviewed: Yes Vitals/I&O/Wt Last Vital Signs Temp 98.2 F 08/29/20 12:00 Pulse 72 08/29/20 16:00 Resp 21 H 08/29/20 16:00 BP 158/87 08/29/20 16:00 Pulse Ox 93 08/29/20 16:00 08/29/20 08/29/20 08/29/20 06:59 14:59 22:59 Intake Total 1600 / 3840 700 / 700 Output Total 750 / 2450 525 / 525 425 / 950 Balance 850 / 1390 175 / 175 -425 / -250 Weight last 48 hrs Weight 143.97 kg Physical Exam Narrative: EXAM NARRATIVE: General: Weak, AO x3, frail HEENT: PERRLA, pupils bilaterally equal and reactive Chest: Bilateral lower zone decreased breath sounds, bilateral crackles present all over the lung ray with occasional bronchial breath sounds CVS: S1-S2 regular, pansystolic murmur at the apex, no tachycardia, no gallops, no rubs Abdomen: Soft, obese, nontender, no organomegaly, bowel sounds present Neuro: Pupils bilaterally equal and reactive, no facial deformity, moving all limbs appropriately. 3/5 power bilaterally. Extremities: Bilateral lower limb edema present 1+ up to midcalf though improving Urinary Catheter Management^: Melgar: Cath Placed During This Visit: yes Reason for Continuing Indwelling Catheter: Accurate Measurement of Urinary Output in Critically Ill Patients Urinary Catheter Date of Insertion: 08/19/20 Urinary Catheter Time of Insertion: 02:27 Data : 08/29/20 03:00 08/29/20 03:00 A&P Assessment and plan (1) ARDS (adult respiratory distress syndrome): Status: Acute (2) Acute respiratory failure with hypoxia and hypercapnia: Status: Acute (3) Sepsis: Plan as 1 Status: Acute (4) Pneumonia due to 2019-nCoV: Status: Acute (5) Acute exacerbation of CHF (congestive heart failure): Status: Acute (6) CHF (congestive heart failure), NYHA class III: Status: Acute Qualifiers: Congestive heart failure type: diastolic Congestive heart failure chronicity: chronic Qualified Code(s): I50.32 - Chronic diastolic (congestive) heart failure (7) KAYLEEN (acute kidney injury): Status: Acute (8) Hypernatremia: Status: Acute (9) Anemia: Status: Acute (10) Cardiac arrest: 1 Cycle CPR No Epi Given No shock Delivered No hypothermia protocol initiated Status: Acute (11) Physical deconditioning: Status: Acute Additional A&P Information Hypoxic respiratory failure/ARDS secondary to COVID-19 pneumonia and decompensated heart failure with most likely superadded bacterial infection: Post cardiac arrest: Extubated on 08/25 Improving quite drastically. Currently on 4 L oxygen supplementation. We will continue to wean keeps keeping saturation over 92%. Continue imipenem and vancomycin. Last dose of antibiotics on August 30 to finish a 5-day course post extubation. Continue with fluconazole as per ET tube cultures of yeast. Will finish a 10-day course. Continue with nystatin swish and swallow for oral thrush. Patient has finished a 5-day course of remdesivir. Patient has received dexamethasone for more than 10 days. Will transition over to oral prednisone 10 mg daily for next 3 days followed by 5 mg for next 3 days for a taper. Continue with Advair, Spiriva. Vitamin C 1000 mg once a day, zinc. Continue with full dose Lovenox as per creatinine clearance. Aggressive pulmonary toilet with incentive spirometry, Acapella, chest vest. Acute kidney injury: Diuretic phase of ATN. Resolving. Urine output plateauing now. Continues to remain 14 L negative since admission but intake and output documented equal in last 24 hours. We will continue to monitor. Off fluids now. If urine output declines further can start on diuresis from tomorrow. Continue monitor BMP. Hypernatremia: Resolved. Most likely because of excessive diuresis. Fluids stopped today. Repeat BMP daily. Last echocardiogram from September 2019 shows grade 1 diastolic dysfunction with 56% EF with moderate MR. Repeat echocardiogram done during this admission poor study but most likely similar results with mild pericardial effusion. Pericardial effusion most likely due to post cardiac arrest/CPR status. Appreciate nephrology and pulmonology recommendation. Nutrition: Continue with GI soft diet for now along with Ensure with each meal. Hypertension: Goal blood pressure less than 140/90 mmHg. Blood pressures better today but mildly elevated. For now we will continue to monitor on current treatment. Continue with current medications including hydralazine 100 mg 3 times daily, increase Coreg to 12.5 mg twice daily, continue with nifedipine 60 mg daily. Start home dose of clonidine 0.2 3 times a day. Insulin sliding scale before meals and at bedtime. Full code GI soft diet with Ensure Full dose Lovenox. PT evaluation today. Out of bed to chair. Please avoid sedation medications overnight. Patient's care discussed in detail with his Ms. Johansen and daughter Ms. Gross on phone. We discussed that Mr. Velasco is improving quite drastically and is down to 4 L oxygen supplementation. His kidney functions are steadily improving with a good urine output. Also discussed that his sodium levels are also improving. Discussed that patient has severe deconditioning for which he will need to continue physical therapy even as an outpatient for at least couple of months. Because of severe generalized deconditioning, baseline poor health SNF was recommended to the patient. Case management to follow. Attestations Medical Necessity Statement*: Patient requires further hospitalization for resolving hypoxic respiratory failure from COVID-19 pneumonia, post extubation, resolving KAYLEEN, resolving hypernatremia while safe discharge planning is sought because of severe generalized physical deconditioning. Time Spent in Patient Care: Greater than 35 minutes (>than 50% of time spent in counselling and/or direct pt care on unit). Coding Level of Care Code Acute Maintenance Controller for Patricia Reid Diagnoses ARDS (adult respiratory distress syndrome) J80 Acute respiratory failure with hypoxia and hypercapnia J96.01; J96.02 Sepsis A41.9 Pneumonia due to 2019-nCoV U07.1; J12.89 Acute exacerbation of CHF (congestive heart failure) I50.9 CHF (congestive heart failure), NYHA class III I50.32 Congestive heart failure type: diastolic Congestive heart failure chronicity: chronic KAYLEEN (acute kidney injury) N17.9 Hypernatremia E87.0 Anemia D64.9 Cardiac arrest I46.9 Physical deconditioning R53.81
[2020-08-29] MEDS: vancomycin 1,500 MG/300 ML PIGGYBACK 200 MG IV (17:01)
[2020-08-29] MEDS: enoxaparin 120 mg/0.8 mL Syringe SUBCUT (17:01)
[2020-08-29 17:05] LABS: Glucose Point of Care 143 mg/dL (70-110)
--- NOTE | 2020-08-29 18:45 | PC.NURSE ---
Received bedside report on patient from Jan French RN. Assumed care at this time.
[2020-08-29 20:59] LABS: Glucose Point of Care 125 mg/dL (70-110)
[2020-08-29] MEDS: artificial tears Op Soln 15 mL Btl 1 DROP EYE-BOTH (21:05)
[2020-08-29] MEDS: OLANZapine 5 mg ODT PO (21:08)
[2020-08-30] VITALS (22 sets, daily range): BP systolic 119–169; BP diastolic 67–91; PULSE 72–83; RESP 15–27; TEMP 36.4–36.8; O2SAT 85–95
[2020-08-30] MEDS: famotidine 20 mg/2 mL INJ IVP ×2 (01:06→11:55)
[2020-08-30 04:53] LABS: Alanine Aminotransferase 16 U/L (0-41); Albumin Level 2.3 g/dL (3.5-5.2); Alkaline Phosphatase 63 IU/L (40-130); Anion Gap 17.1 (5-19); Aspartate Amino Transferase 16 U/L (0-40); Calcium 8.4 mg/dL (8.5-10.5); Carbon Dioxide 24 mmol/L (22-29); Chloride 106 mmol/L (98-107); Globulin 3.7 g/dL (1.3-4.6); Glucose 114 mg/dL (65-115); Lactate Dehydrogenase 208 U/L (135-225); Magnesium 2.1 mg/dL (1.7-2.3); NT Pro B Type Natriuretic Pept 6045 pg/mL (0-125); Osmolality Calculated 327 mOsm/kg (285-295); Phosphorus 6.3 mg/dL (2.5-4.5); Potassium 4.1 mmol/L (3.5-5.1); Sodium 143 mmol/L (136-145); Total Bilirubin 0.2 mg/dL (0.15-1.2)
[2020-08-30 04:56] LABS: D Dimer 1.29 ug/mIFEU (0-0.59)
[2020-08-30 04:58] LABS: Blood Urea Nitrogen 98 mg/dL (6-20)
--- NOTE | 2020-08-30 06:00 | XRR_ITS ---
PROCEDURE INFORMATION: Exam: XR Chest, 1 View Exam date and time: 08/30/2020 6:35 AM Age: 50 years old Clinical indication: Condition or disease; Other: Covid TECHNIQUE: Imaging protocol: XR of the chest Views: 1 view. COMPARISON: CR (CHEST, ) 08/28/2020 7:40 AM FINDINGS: Lungs: Mild interstitial opacities throughout both lungs, similar to prior study. This is compatible with viral pneumonia. Pulmonary vascular congestion is also possible. No airspace consolidation identified. Pleural spaces: No visible pneumothorax or pleural effusion. Heart/Mediastinum: Heart size within normal limits. Bones/joints: No emergent findings identified. XR/XR chest 1V portable [id number] IMPRESSION: 1. Mild interstitial opacities throughout both lungs, similar to prior study. This is compatible with viral pneumonia. Pulmonary vascular congestion is also possible.
[2020-08-30 06:52] LABS: Ferritin 419 ng/mL (30-400)
--- NOTE | 2020-08-30 07:34 | P.PN_ITS ---
Subjective Subjective: Interval history: more awake, earing, following commands, still sob, cough, secretions, edema. Medications: Reviewed: Yes Medication Review Details: Current Medications Artificial Tears (Artificial Tears Op Soln 15 Ml Btl) 1 drop EYE-BOTH BEDTIME [facility] Last Admin: 08/29/20 21:05 Dose: 1 drop Documented by: Aspirin (Aspirin 81 Mg Ec Tablet) 81 mg PO DAILY [facility] Last Admin: 08/29/20 08:45 Dose: 81 mg Documented by: Carvedilol (Carvedilol 25 Mg Tablet) 25 mg PO BIDPC [facility] Last Admin: 08/29/20 17:01 Dose: 25 mg Documented by: Clonidine HCl (Clonidine 0.1 Mg Tablet) 0.2 mg PO TID [facility] Last Admin: 08/29/20 21:06 Dose: 0.2 mg Documented by: Dextrose (Dextrose 50% Syringe 50 Ml) 25 ml IVP ONCE PRN; Protocol PRN Reason: hypoglycemia protocol Dextrose (Dextrose 50% Syringe 50 Ml) 50 ml IVP PRN PRN; Protocol PRN Reason: hypoglycemia protocol Enoxaparin Sodium (Enoxaparin 120 Mg/0.8 Ml Syringe) 120 mg SUBCUT Q24H [facility] Last Admin: 08/29/20 17:01 Dose: 120 mg Documented by: Famotidine (Famotidine 20 Mg/2 Ml Inj) 20 mg IVP Q12H [facility] Last Admin: 08/30/20 01:06 Dose: 20 mg Documented by: Fluconazole (Fluconazole 100 Mg Tablet) 200 mg PO DAILY [facility] Stop: 09/04/20 08:59 Last Admin: 08/29/20 08:45 Dose: 200 mg Documented by: Glucagon (Glucagon 1 Mg/Ml Inj 1 Ml) 1 mg IM ONCE PRN; Protocol PRN Reason: Adult Acute Hypoglycemia Prot. Hydralazine HCl (Hydralazine 20 Mg/Ml Inj 1 Ml) 10 mg IVP Q4H PRN PRN Reason: for SB/P Greater then 160 Last Admin: 08/28/20 06:02 Dose: 10 mg Documented by: Hydralazine HCl (Hydralazine 50 Mg Tablet) 75 mg PO TID [facility] Last Admin: 08/29/20 21:06 Dose: 75 mg Documented by: Dextrose (D5w) 500 mls @ 100 mls/hr IV ONCE PRN; Protocol PRN Reason: Adult Acute Hypoglycemia Prot Imipenem/Cilastatin Sodium 250 (mg/ Sodium Chloride) 100 mls @ 200 mls/hr IV Q6H [place]; Protocol Stop: 08/30/20 10:00 Last Infusion: 08/30/20 03:30 Dose: Infused Documented by: Vancomycin/PEG/[place]/Lysine/Water (Vancocin) 1,500 mg in 300 mls @ 200 mls/hr IV Q48H [place] Stop: 08/30/20 12:00 Last Admin: 08/29/20 17:01 Dose: 200 mls/hr Documented by: Insulin Aspart (Insulin Aspart 100 Unit/1 Ml) 0 unit SUBCUT WM&BEDTIME [place]; Protocol Last Admin: 08/29/20 21:08 Dose: Not Given Documented by: Isosorbide Mononitrate (Isosorbide Mononitrate Er 30 Mg Tablet) 30 mg PO DAILY [place] Last Admin: 08/29/20 08:44 Dose: 30 mg Documented by: Nifedipine (Nifedipine Er (24 Hr) 30 Mg Tablet) 60 mg PO DAILY [place] Last Admin: 08/29/20 08:45 Dose: 60 mg Documented by: Nystatin (Nystatin 100,000 Unit/Ml Udc 5 Ml) 400,000 unit PO QID [place] Last Admin: 08/29/20 21:07 Dose: 400,000 unit Documented by: Olanzapine (Olanzapine 5 Mg Odt) 5 mg PO BEDTIME [place] Last Admin: 08/29/20 21:08 Dose: 5 mg Documented by: Prednisone (Prednisone 10 Mg Tablet) 10 mg PO DAILY [place] Stop: 09/01/20 08:59 Last Admin: 08/29/20 08:46 Dose: 10 mg Documented by: Prednisone (Prednisone 5 Mg Tablet) 5 mg PO DAILY [place] Stop: 09/04/20 08:59 Fluticasone/Salmeterol (Fluticasone-Salmeterol 250-50 Diskus) 1 puff INHALATION BID.RESPIRATORY [place] Last Admin: 08/29/20 20:01 Dose: 1 puff Documented by: Sevelamer Carbonate (Sevelamer 800 Mg Tablet) 800 mg PO TID [place] Last Admin: 08/29/20 21:08 Dose: 800 mg Documented by: Tiotropium [place] (Tiotropium 18 Mcg Mdi) 18 mcg INHALATION DAILY.RESPIRATORY [place] Last Admin: 08/29/20 08:26 Dose: 1 puff Documented by: Vitals/I&O/Wt Last Vital Signs Temp 98.1 F 08/30/20 04:00 Pulse 78 08/30/20 06:00 Resp 22 H 08/30/20 04:00 BP 167/89 08/30/20 04:00 Pulse Ox 93 08/30/20 04:00 08/29/20 08/30/20 08/30/20 22:59 06:59 14:59 Intake Total 920 / 1620 340 / 1960 Output Total 850 / 1375 1800 / 3175 Balance 70 / 245 -1460 / -1215 Physical Exam Narrative: EXAM NARRATIVE: vss comfortable sitting up, NAD- nco2 heent- ncat neck supple lungs crackles b/l heart reg, +YAS abd soft, nt, nd, + bs ext 1+ edema b/l, ankles/feet 2+ edema neuro- a,a, o x 2+, moves all ext, improving pulses + b/l Urinary Catheter Management^: Melgar: Cath Placed During This Visit: yes Reason for Continuing Indwelling Catheter: Accurate Measurement of Urinary Output in Critically Ill Patients Urinary Catheter Date of Insertion: 08/19/20 Urinary Catheter Time of Insertion: 02:27 Data : 08/29/20 03:00 08/30/20 03:55 A&P Additional A&P Information 1. Acute kidney injury: improving, good urine output -excellent diuresis 2. 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 Hypernatremia,improved. monitor off of d5w 3. Hyperphosphatemia- monitro on renvela 4. Hypertension - remains high BP. give a dose of lasix 5. covid-19 pna- s/p remdesivir 6. completes vanco today- monitor troughs, keep under 19 7. hgb acceptable - but falling- repeat pending 8. dm control 9. 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
[2020-08-30] MEDS: sevelamer 800 mg Tablet PO ×3 (08:28→21:06)
[2020-08-30] MEDS: FUROsemide 10 mg/mL SDV 4mL 40 MG IVP (08:28)
[2020-08-30] MEDS: nystatin 100,000 unit/mL UDC 5 mL 400000 UNIT PO ×2 (08:28→21:06)
[2020-08-30] MEDS: fluconazole 100 mg Tablet 200 MG PO (08:28)
[2020-08-30] MEDS: predniSONE 10 mg Tablet PO (08:29)
[2020-08-30] MEDS: NIFEdipine ER (24 hr) 30 mg Tablet 60 MG PO (08:29)
[2020-08-30] MEDS: hyDRALAzine 50 mg Tablet 75 MG PO ×3 (08:29→21:05)
[2020-08-30] MEDS: cloNIDine 0.1 mg Tablet 0.2 MG PO ×3 (08:29→21:05)
[2020-08-30] MEDS: isosorbide mononitrate ER 30 mg Tablet PO (08:29)
[2020-08-30] MEDS: aspirin 81 mg EC Tablet PO (08:29)
[2020-08-30] MEDS: carvedilol 25 mg Tablet PO ×2 (08:30→17:36)
[2020-08-30 11:36] LABS: Glucose Point of Care 159 mg/dL (70-110)
[2020-08-30] MEDS: enoxaparin 120 mg/0.8 mL Syringe SUBCUT (16:01)
[2020-08-30 17:24] LABS: Glucose Point of Care 207 mg/dL (70-110)
--- NOTE | 2020-08-30 18:45 | PC.NURSE ---
Received bedside report on patient from Henny SCHERER. Assumed care at this time.
--- NOTE | 2020-08-30 20:04 | PM.PN ---
Subjective Subjective: Interval history: He is quite weak, and got quite tired trying to stand up with therapy. His saturation, however, appears to have held out well even transiently on room air saturating around 92%, otherwise doing well on 2 L. He denies chest pain or pressure. Has had no headache, nausea vomiting or diarrhea. Encouraged him to use incentive spirometry. Vitals/I&O/Wt Last Vital Signs Temp 98.2 F 08/30/20 13:00 Pulse 76 08/30/20 16:00 Resp 21 H 08/30/20 16:00 BP 143/77 08/30/20 16:00 Pulse Ox 95 08/30/20 16:00 08/30/20 08/30/20 08/30/20 06:59 14:59 22:59 Intake Total 340 / 2260 1060 / 1060 240 / 1300 Output Total 1800 / 3175 1300 / 1300 500 / 1800 Balance -1460 / -915 -240 / -240 -260 / -500 Physical Exam Const: COMMON NORMALS: no acute distress and patient oriented x3 OTHER: Getting tired working with physical therapy, but encouraged by stable saturations. HENMT: COMMON NORMALS: oropharynx normal Neck/C-Spine: COMMON NORMALS: no JVD Resp: COMMON NORMALS: normal respiratory effort and clear to auscultation bilaterally AUSCULTATION: clear to auscultation bilaterally and crackles (Few crackles bilaterally at bases.) Cardio: COMMON NORMALS: no JVD, regular rhythm, S1 normal heart sound present, S2 normal heart sound present and No murmurs present (Cardio) RHYTHM: regular rhythm HEART SOUNDS: S1 normal heart sound present and S2 normal heart sound present GI: COMMON NORMALS: Normal to inspection, nondistended, normoactive bowel sounds present, Soft to palpation and non-tender PALPATION: Yes Soft to palpation Extremity: COMMON NORMALS: no joint enlargement GENERAL: Yes edema (2+ bilateral edema below knees) Neuro: COMMON NORMALS: patient oriented x3 and moves all extremities Skin: COMMON NORMALS: no rashes or lesions noted GENERAL SKIN EXAM: no rashes or lesions noted and dry skin Urinary Catheter Management^: Melgar: Cath Placed During This Visit: yes Reason for Continuing Indwelling Catheter: Accurate Measurement of Urinary Output in Critically Ill Patients Urinary Catheter Date of Insertion: 08/19/20 Urinary Catheter Time of Insertion: : Data : 08/29/20 03:00 08/30/20 03:55 A&P Assessment and plan (1) Acute respiratory failure with hypoxia and hypercapnia: Continues to progressively improve. He is extremely deconditioned. Very weak, and tired very easily. Otherwise oxygenation appears to be stable. Today down to 2 L, and for brief periods even down to room air. Working with PT. Continuing on prednisone taper. He is coming off antibiotics. He is diuresing very well. Pending arrangements for placement to SNF for additional rehabilitation. Status: Acute (2) ARDS (adult respiratory distress syndrome): Status: Acute (3) Sepsis: Resolved. Status: Acute (4) Pneumonia due to 2019-nCoV: Continue to improve. With significant deconditioning as above. Completed remdesivir. Decadron. Currently on prednisone taper. Status: Acute (5) Acute exacerbation of CHF (congestive heart failure): Diuresing well. Continue to monitor MARCOS, renal function. Status: Acute (6) CHF (congestive heart failure), NYHA class III: Status: Acute Qualifiers: Congestive heart failure type: diastolic Congestive heart failure chronicity: chronic Qualified Code(s): I50.32 - Chronic diastolic (congestive) heart failure (7) KAYLEEN (acute kidney injury): Function please have stabilized. Creatinine is still not back to baseline. Status: Acute (8) Hypernatremia: D5W discontinued. Monitor sodium. Status: Acute (9) Anemia: Monitor hemoglobin. With some decrease despite diuresis. Will repeat. Status: Acute (10) Cardiac arrest: Status post cardiac arrest. 1 Cycle CPR No Epi Given No shock Echocardiogram with normal EF. Unable to reliably assess regional wall motion of normality. Noted thickened aortic valve. No significant stenosis or regurgitation. Mild MR. Trivial pericardial effusion. Mildly dilated aortic root. Status: Acute (11) Physical deconditioning: Continue physical therapy. Pending arrangements for SNF for additional rehabilitation. He is putting in good effort with physical therapy, but is quite significantly deconditioned. Status: Acute Additional A&P Information Continue with fluconazole as per ET tube cultures of yeast. Will finish a 10-day course. Continue with nystatin swish and swallow for oral thrush. Nutrition: Continue with GI soft diet for now along with Ensure with each meal. Hypertension: Goal blood pressure less than 140/90 mmHg. So far at goal. Continue with current medications. Insulin sliding scale before meals and at bedtime. Attestations Medical Necessity Statement*: Continue admission for assessment management of respiratory failure, resolving ARDS, CHF, acute kidney injury, additional problems as above as well as significant deconditioning, with continued discharge arrangements. Coding Level of Care Code Acute Health And Fitness Professor for [facility] Fwd Diagnoses Acute respiratory failure with hypoxia and hypercapnia J96.01; J96.02 ARDS (adult respiratory distress syndrome) J80 Sepsis A41.9 Pneumonia due to 2019-nCoV U07.1; J12.89 Acute exacerbation of CHF (congestive heart failure) I50.9 CHF (congestive heart failure), NYHA class III I50.32 Congestive heart failure type: diastolic Congestive heart failure chronicity: chronic KAYLEEN (acute kidney injury) N17.9 Hypernatremia E87.0 Anemia D64.9 Cardiac arrest I46.9 Physical deconditioning R53.81
[2020-08-30 20:14] LABS: Glucose Point of Care 175 mg/dL (70-110)
[2020-08-30] MEDS: artificial tears Op Soln 15 mL Btl 1 DROP EYE-BOTH (21:05)
[2020-08-30] MEDS: OLANZapine 5 mg ODT PO (21:06)
[2020-08-31] VITALS (20 sets, daily range): BP systolic 134–161; BP diastolic 70–80; PULSE 72–81; RESP 13–27; TEMP 36.5–37.1; O2SAT 83–95
[2020-08-31] MEDS: famotidine 20 mg/2 mL INJ IVP ×2 (00:45→12:08)
[2020-08-31] MEDS: FUROsemide 10 mg/mL SDV 4mL 40 MG IVP (07:59)
[2020-08-31] MEDS: carvedilol 25 mg Tablet PO ×2 (07:59→17:27)
--- NOTE | 2020-08-31 08:05 | P.PN_ITS ---
Subjective Subjective: Interval history: feels better. dec edema and sob. eating, more awake, got OOB yesterday Medications: Reviewed: Yes Medication Review Details: Current Medications Artificial Tears (Artificial Tears Op Soln 15 Ml Btl) 1 drop EYE-BOTH BEDTIME [facility] Last Admin: 08/30/20 21:05 Dose: 1 drop Documented by: Aspirin (Aspirin 81 Mg Ec Tablet) 81 mg PO DAILY [facility] Last Admin: 08/30/20 08:29 Dose: 81 mg Documented by: Carvedilol (Carvedilol 25 Mg Tablet) 25 mg PO BIDPC [facility] Last Admin: 08/31/20 07:59 Dose: 25 mg Documented by: Clonidine HCl (Clonidine 0.1 Mg Tablet) 0.2 mg PO TID [facility] Last Admin: 08/30/20 21:05 Dose: 0.2 mg Documented by: Dextrose (Dextrose 50% Syringe 50 Ml) 25 ml IVP ONCE PRN; Protocol PRN Reason: hypoglycemia protocol Dextrose (Dextrose 50% Syringe 50 Ml) 50 ml IVP PRN PRN; Protocol PRN Reason: hypoglycemia protocol Enoxaparin Sodium (Enoxaparin 120 Mg/0.8 Ml Syringe) 120 mg SUBCUT Q24H [facility] Last Admin: 08/30/20 16:01 Dose: 120 mg Documented by: Famotidine (Famotidine 20 Mg/2 Ml Inj) 20 mg IVP Q12H [facility] Last Admin: 08/31/20 00:45 Dose: 20 mg Documented by: Fluconazole (Fluconazole 100 Mg Tablet) 200 mg PO DAILY [facility] Stop: 09/04/20 08:59 Last Admin: 08/30/20 08:28 Dose: 200 mg Documented by: Furosemide (Furosemide 10 Mg/Ml Sdv 4ml) 40 mg IVP Q24H [facility] Last Admin: 08/31/20 07:59 Dose: 40 mg Documented by: Glucagon (Glucagon 1 Mg/Ml Inj 1 Ml) 1 mg IM ONCE PRN; Protocol PRN Reason: Adult Acute Hypoglycemia Prot. Hydralazine HCl (Hydralazine 20 Mg/Ml Inj 1 Ml) 10 mg IVP Q4H PRN PRN Reason: for SB/P Greater then 160 Last Admin: 08/28/20 06:02 Dose: 10 mg Documented by: Hydralazine HCl (Hydralazine 50 Mg Tablet) 75 mg PO TID [facility] Last Admin: 08/30/20 21:05 Dose: 75 mg Documented by: Dextrose (D5w) 500 mls @ 100 mls/hr IV ONCE PRN; Protocol PRN Reason: Adult Acute Hypoglycemia Prot Insulin Aspart (Insulin Aspart 100 Unit/1 Ml) 0 unit SUBCUT WM&BEDTIME [place]; Protocol Last Admin: 08/31/20 07:53 Dose: Not Given Documented by: Isosorbide Mononitrate (Isosorbide Mononitrate Er 30 Mg Tablet) 30 mg PO DAILY [place] Last Admin: 08/30/20 08:29 Dose: 30 mg Documented by: Nifedipine (Nifedipine Er (24 Hr) 30 Mg Tablet) 60 mg PO DAILY [facility] Last Admin: 08/30/20 08:29 Dose: 60 mg Documented by: Nystatin (Nystatin 100,000 Unit/Ml Udc 5 Ml) 400,000 unit PO QID [facility] Last Admin: 08/30/20 21:06 Dose: 400,000 unit Documented by: Olanzapine (Olanzapine 5 Mg Odt) 5 mg PO BEDTIME [facility] Last Admin: 08/30/20 21:06 Dose: 5 mg Documented by: Prednisone (Prednisone 10 Mg Tablet) 10 mg PO DAILY [place] Stop: 09/01/20 08:59 Last Admin: 08/30/20 08:29 Dose: 10 mg Documented by: Prednisone (Prednisone 5 Mg Tablet) 5 mg PO DAILY [place] Stop: 09/04/20 08:59 Fluticasone/Salmeterol (Fluticasone-Salmeterol 250-50 Diskus) 1 puff INHALATION BID.RESPIRATORY [facility] Last Admin: 08/30/20 20:27 Dose: 1 puff Documented by: Sevelamer Carbonate (Sevelamer 800 Mg Tablet) 800 mg PO TID [facility] Last Admin: 08/30/20 21:06 Dose: 800 mg Documented by: Tiotropium [place] (Tiotropium 18 Mcg Mdi) 18 mcg INHALATION DAILY.RESPIRATORY [facility] Last Admin: 08/30/20 09:23 Dose: 1 puff Documented by: Vitals/I&O/Wt Last Vital Signs Temp 98.6 F 08/31/20 04:00 Pulse 72 08/31/20 06:00 Resp 16 08/30/20 20:27 BP 143/77 08/30/20 16:00 Pulse Ox 93 08/30/20 20:27 08/30/20 08/31/20 08/31/20 22:59 06:59 14:59 Intake Total 240 / 1300 Output Total 500 / 1800 1200 / 3000 Balance -260 / -500 -1200 / -1700 Physical Exam Narrative: EXAM NARRATIVE: vss comfortable sitting up, NAD- on nasal canal o2 heent- ncat neck supple lungs dec crackles b/l heart reg, +YAS abd soft, nt, nd, + bs + espinal ext 1+ edema b/l, ankles/feet 2+ edema neuro- a,a, o x 2+, moves all ext, improving pulses + b/l Urinary Catheter Management^: Espinal: Cath Placed During This Visit: yes Reason for Continuing Indwelling Catheter: Accurate Measurement of Urinary Output in Critically Ill Patients Urinary Catheter Date of Insertion: 08/19/20 Urinary Catheter Time of Insertion: : Data : 08/29/20 03:00 08/30/20 03:55 A&P Additional A&P Information 1. Acute kidney injury: improving, good urine output -excellent diuresis 2. 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 Hypernatremia,improved. monitor off of d5w 3. Hyperphosphatemia- monitro on renvela - may be able to stop it soon 4. Hypertension - BP improved- consider weaning off some meds 5. covid-19 pna- s/p remdesivir 6. dm control 7. would give TOV- d/c espinal if okay w/ medicine/ cards Attestations Medical Necessity Statement*: recent covid, per medicine Time Spent in Patient Care: 16 - 35 minutes Coding Level of Care Code Acute Director Of Video Analytics for [facility]
[2020-08-31 08:27] LABS: D Dimer 1.07 ug/mIFEU (0-0.59)
[2020-08-31 08:32] LABS: Alanine Aminotransferase 12 U/L (0-41); Albumin Level 2.4 g/dL (3.5-5.2); Alkaline Phosphatase 74 IU/L (40-130); Anion Gap 16.1 (5-19); Aspartate Amino Transferase 13 U/L (0-40); Calcium 8.7 mg/dL (8.5-10.5); Carbon Dioxide 25 mmol/L (22-29); Chloride 107 mmol/L (98-107); Globulin 3.9 g/dL (1.3-4.6); Glomerular Filtration Rate 16.9 mL/min (90-130); Glucose 107 mg/dL (65-115); Magnesium 2.2 mg/dL (1.7-2.3); Osmolality Calculated 330 mOsm/kg (285-295); Phosphorus 6.1 mg/dL (2.5-4.5); Potassium 4.1 mmol/L (3.5-5.1); Sodium 144 mmol/L (136-145); Total Bilirubin 0.3 mg/dL (0.15-1.2); Total Protein 6.3 g/dL (6.6-8.7)
[2020-08-31 08:37] LABS: Blood Urea Nitrogen 101 mg/dL (6-20)
[2020-08-31] MEDS: sevelamer 800 mg Tablet PO ×2 (10:00→15:30)
[2020-08-31] MEDS: nystatin 100,000 unit/mL UDC 5 mL 400000 UNIT PO ×3 (10:00→17:27)
[2020-08-31] MEDS: fluconazole 100 mg Tablet 200 MG PO (10:00)
[2020-08-31] MEDS: cloNIDine 0.1 mg Tablet PO ×2 (10:01→15:31)
[2020-08-31] MEDS: NIFEdipine ER (24 hr) 30 mg Tablet 60 MG PO (10:01)
[2020-08-31] MEDS: aspirin 81 mg EC Tablet PO (10:01)
[2020-08-31] MEDS: isosorbide mononitrate ER 30 mg Tablet PO (10:02)
[2020-08-31] MEDS: hyDRALAzine 50 mg Tablet 75 MG PO ×2 (10:02→15:31)
[2020-08-31] MEDS: predniSONE 10 mg Tablet PO (10:02)
[2020-08-31 11:59] LABS: Glucose Point of Care 133 mg/dL (70-110)
[2020-08-31 11:59] LABS: Glucose Point of Care 116 mg/dL (70-110)
--- NOTE | 2020-08-31 13:46 | PM.DCS ---
Discharge Providers Date of Admission: 08/19/20 03:19 Date of Discharge: August 31, 2020 Attending Provider at Admission: Chris Johansen MD Attending Provider at Discharge: Frederick Barclay Primary Care Provider: Sulma Wetzel MD Diagnoses at Discharge Discharge Diagnosis (1) Acute respiratory failure with hypoxia and hypercapnia: Status: Acute (2) ARDS (adult respiratory distress syndrome): Status: Acute (3) Sepsis: Status: Acute (4) Pneumonia due to 2019-nCoV: Status: Acute (5) Acute exacerbation of CHF (congestive heart failure): Status: Acute (6) CHF (congestive heart failure), NYHA class III: Status: Acute Qualifiers: Congestive heart failure type: diastolic Congestive heart failure chronicity: chronic Qualified Code(s): I50.32 - Chronic diastolic (congestive) heart failure (7) KAYLEEN (acute kidney injury): Status: Acute (8) Hypernatremia: Status: Acute (9) Anemia: Status: Acute (10) Cardiac arrest: Status: Acute (11) Physical deconditioning: Status: Acute Reason for Visit Reason for Visit: resp distress Hospital Course Hospital Course 50-year gentleman with history of HTN, DM 2, HLD, GERD, CKD 3, diabetic nephropathy, nephrotic syndrome, SYED, OHS, not on as admitted on 08/19 after cardiopulmonary arrest, with noted COVID-19 pneumonia. Continued on mechanical ventilatory support until 08/25 at which point was extubated. Has done well on nasal cannula oxygen, and has been gradually weaning down, currently down to 2 L nasal cannula, intermittently even doing okay on room air. His hospitalization was complicated by acute kidney injury on chronic kidney disease, baseline creatinine 2-3. He continued with good urine output. Recently has also been recovering from diuretic phase after ATN. With acute congestive heart failure gentle diuresis was resumed with some gradual decrease in urine output. Echocardiogram was performed, although technically difficult study, noted LV systolic function grossly normal. Regional wall motion normalities could not be closely assessed. Noted secondary to valve. No significant aortic stenosis or regurgitation seen. Mild mitral regurgitation. Trivial pericardial effusion which was new. Due to D-dimer elevation on presentation, 1.3, with coronavirus and elevated risk of VTE, he was also maintained on therapeutic anticoagulation. This is for now continued on discharge to complete 2 weeks, but please reassess his ongoing risk for VTE, and extend if necessary. He will gradually wean down on steroid therapy. Currently on prednisone taper, with 3 more days of 5 mg dosing. Completed a course of remdesivir for COVID-19. He completed his antibiotic therapy on 08/30 (Primaxin and vancomycin). He is also on fluconazole due to Janis growing from ET tube. Will complete 14 days of therapy. Nystatin swish and swallow. He is overall very deconditioned, recently with poor exercise tolerance even at home, and currently even though oxygenation has been tolerating, he is generally quite weak, and with low stamina when he comes to therapy. He has been participating well, however, and so he is going to continue therapy in SNF settings prior to returning home. He is asked to continue follow-up with nephrology for further assessment of his renal function, as well as reassessment of sodium after hypernatremia in the hospital requiring temporary D5W infusion. He is resumed on gentle diuresis currently with Lasix. Please reassess volume status and escalate diuresis as needed. He is asked to resume his follow-up with pulmonology for sleep apnea and obesity hypoventilation syndrome. He would benefit from CPAP at night if he may wear it. He is referred for follow-up with cardiology after cardiac arrest for additional assessment. He is also asked to resume follow-up with urology as previously for renal cell carcinoma and status post partial nephrectomies. A number of his antihypertensives have been adjusted in the hospital, due in part to some worsening of renal function. He is for now started on hydralazine, nifedipine. Please reassess his blood pressures, renal function, and adjust medication as appropriate. If possible switching away from nifedipine to avoid hypotension back to amlodipine, perhaps was using ARB once renal function stabilizes. Please see full hospitalization documentation for details. Do not hesitate to call with any questions. Physical Exam Const: COMMON NORMALS: no acute distress and patient oriented x3 NUTRITIONAL APPEARANCE: obese OTHER: He reports he is feeling well. He is eager to continue physical therapy at SNF. Denies any chest pain or pressure. Denies any shortness of breath. HENMT: COMMON NORMALS: oropharynx normal Neck/C-Spine: COMMON NORMALS: no JVD Resp: COMMON NORMALS: normal respiratory effort and clear to auscultation bilaterally AUSCULTATION: clear to auscultation bilaterally Cardio: COMMON NORMALS: no JVD, regular rhythm, S1 normal heart sound present, S2 normal heart sound present and No murmurs present (Cardio) RHYTHM: regular rhythm HEART SOUNDS: S1 normal heart sound present and S2 normal heart sound present GI: COMMON NORMALS: Normal to inspection, nondistended, normoactive bowel sounds present, Soft to palpation and non-tender PALPATION: Yes Soft to palpation Extremity: COMMON NORMALS: no joint enlargement and no pedal edema GENERAL: Yes edema (2+ bilateral edema below knees) Neuro: COMMON NORMALS: patient oriented x3 and moves all extremities Skin: COMMON NORMALS: no rashes or lesions noted GENERAL SKIN EXAM: no rashes or lesions noted Urinary Catheter Management^: Melgar: Cath Placed During This Visit: yes Reason for Continuing Indwelling Catheter: Decision to DC Catheter (Requested removal of Melgar catheter prior to discharge.) Urinary Catheter Date of Insertion: 08/19/20 Urinary Catheter Time of Insertion: 02:27 Discharge Data Data Completed and Pending: Completed Studies During Hospitalization Category Date Time Status XR chest 1V jonas ble [id number] Q48H Exams 08/28/20 06:00 Completed XR chest 1V jonas ble [id number] Q48H Exams 08/30/20 06:00 Completed XR chest 1V jonas ble [id number] Routine Exams 08/21/20 09:17 Completed XR chest 1V jonas ble [id number] Routine Exams 08/23/20 06:00 Completed XR chest 1V jonas ble [id number] Routine Exams 08/25/20 08:08 Completed XR chest 1V jonas ble [id number] Stat Exams 08/19/20 02:11 Completed XR chest 1V jonas ble [id number] Stat Exams 08/20/20 10:34 Completed XR chest 1V jonas ble [id number] Urgent Exams 08/19/20 04:35 Completed XR pelvis 1-2V* 7 2170 Stat Exams 08/19/20 23:24 Completed CV echo complete* [id number] Routine Ultrasound 08/23/20 15:33 [place] [id number] Routin e Ultrasound 08/21/20 06:53 Completed Pending at discharge Category Date Time Status XR chest 1V jonas ble [id number] Q48H Exams 09/01/20 06:00 Ordered Complete Blood Co unt w/Auto AM LABS Lab 09/01/20 04:00 Ordered Complete Blood Co unt w/Auto AM LABS Lab 09/02/20 04:00 Ordered Complete Blood Co unt w/Auto AM LABS Lab 09/03/20 04:00 Ordered Comprehensive Met abolic Panel AM LA BS Lab 09/01/20 04:00 Ordered Comprehensive Met abolic Panel AM LA BS Lab 09/01/20 04:00 Ordered Comprehensive Met abolic Panel AM LA BS Lab 09/02/20 04:00 Ordered Magnesium AM LABS Lab 09/01/20 04:00 Ordered Miscellaneous Shakira t Routine Lab 08/24/20 12:30 Received Phosphorus AM LAB S Lab 09/01/20 04:00 Ordered Sputum Culture an d Gram Stain Stat Lab 08/24/20 08:40 Results Labs from last 24 hours 08/31/20 08/31/20 08/31/20 11:38 07:24 04:40 D-Dimer Sodium 144 Potassium 4.1 Chloride 107 Carbon Dioxide 25 Anion Gap 16.1 BUN 101 H* Creatinine 3.8 H GFR Calculation 16.9 L Glucose 107 POC Glucose 133 H 116 H Calculated Osmolal ity 330 H Calcium 8.7 Phosphorus 6.1 H Magnesium 2.2 Total Bilirubin 0.3 AST 13 ALT 12 Alkaline Phosphata se 74 C-Reactive Protein Total Protein 6.3 L Albumin 2.4 L Globulin 3.9 08/31/20 08/31/20 08/30/20 04:40 04:40 19:33 D-Dimer 1.07 H Sodium Potassium Chloride Carbon Dioxide Anion Gap BUN Creatinine GFR Calculation Glucose POC Glucose 175 H Calculated Osmolal ity Calcium Phosphorus Magnesium Total Bilirubin AST ALT Alkaline Phosphata se C-Reactive Protein 29.0 H Total Protein Albumin Globulin 08/30/20 17:08 D-Dimer Sodium Potassium Chloride Carbon Dioxide Anion Gap BUN Creatinine GFR Calculation Glucose POC Glucose 207 H Calculated Osmolal ity Calcium Phosphorus Magnesium Total Bilirubin AST ALT Alkaline Phosphata se C-Reactive Protein Total Protein Albumin Globulin Vitals: Last Vital Signs Temp 97.7 F 08/31/20 11:49 Pulse 75 08/31/20 11:49 Resp 19 H 08/31/20 11:49 BP 161/80 08/31/20 11:49 Pulse Ox 90 08/31/20 11:49 Discharge Plan Discharge Patient Disposition: Home Condition: Stable Prescriptions: New nifedipine 30 mg Tablet Extended Release 24hr 60 mg PO DAILY Qty: 60 RF: 0 nystatin 100,000 unit/mL Suspension 400,000 unit PO QID 4 Days Qty: 64 RF: 0 prednisone 5 mg Tablet 5 mg PO DAILY Qty: 3 RF: 0 hydralazine 50 mg Tablet 75 mg PO TID Qty: 135 RF: 0 famotidine 20 mg tablet 20 mg PO BID 42 Days Qty: 84 RF: 0 sevelamer HCl 400 mg tablet 400 mg PO TID Qty: 30 RF: 0 venlafaxine 37.5 mg tablet 37.5 mg PO DAILY Qty: 30 RF: 0 Eliquis 2.5 mg tablet 2.5 mg PO BID Qty: 10 RF: 0 Isopto Tears 0.5 % Drops 1 drp eye-both BEDTIME Qty: 15 RF: 0 olanzapine 5 mg Tablet,Disintegrating 2.5 mg PO BEDTIME Qty: 3 RF: 0 insulin aspart U-100 [Novolog U-100 Insulin aspart] 100 unit/mL Solution See Rx Instructions .ROUTE .COMPLEX Qty: 10 RF: 0 fluconazole 100 mg Tablet 200 mg PO DAILY Qty: 4 RF: 0 furosemide 40 mg tablet 40 mg PO BID Qty: 60 RF: 0 Continued aspirin [Aspir-81] 81 mg tablet,delayed release (DR/EC) 81 mg PO DAILY RF: 0 clonidine HCl 0.2 mg tablet 0.2 mg PO TID RF: 0 carvedilol 25 mg tablet 25 mg PO BIDPC Qty: 60 RF: 0 isosorbide mononitrate 30 mg Tablet Extended Release 24 Hr 30 mg PO DAILY Qty: 30 RF: 0 atorvastatin 80 mg tablet 80 mg PO DAILY RF: 0 Changed gabapentin 300 mg capsule 300 mg PO BID Qty: 0 RF: 0 Discontinued amlodipine 10 mg tablet 10 mg PO DAILY Qty: 90 RF: 2 bumetanide 2 mg tablet 2 mg PO BID RF: 0 venlafaxine 75 mg capsule,extended release 24hr 75 mg PO DAILY RF: 0 hydrochlorothiazide 25 mg Tablet 25 mg PO DAILY Qty: 30 RF: 0 losartan 50 mg tablet 50 mg PO DAILY RF: 0 metolazone 2.5 mg tablet 2.5 mg PO DAILY RF: 0 Tresiba FlexTouch U-100 100 unit/mL (3 mL) insulin pen 40 unit SUBCUT DAILY RF: 0 Discharge Orders: Discharge Order (Routine); Ordered 02/02/21 Ordered By: Frederick Barclay Referrals: CARDIOLOGY [Provider Group] - 1 week (Cardiac arrest, CHF) Nephrology [Provider Group] - 1 week [facility] [Outside] Sulma Wetzel MD [Primary Care Provider] - 4-7 days Discharge Diet: Cardiac, Diabetic and GI Soft Discharge Activity: Increase activity as tolerated, As per PT/OT instructions and Oxygen as instructed Patient Instructions: Nifedipine (By mouth) Activity Restrictions/Additional Instructions: Continue oxygen by nasal cannula, 2 L/min, wean down as tolerating. Target saturation 92%. Continue Ensure with meals. Please reassess renal function and phosphorus due to acute kidney injury on CKD, sodium level after improved hypernatremia in 1 week. Please arrange for follow-up with nephrology. Please continue to monitor blood pressure 3 times daily, adjust medications for goal blood pressure 140/90. Due to acute kidney injury on chronic kidney disease for now losartan has been discontinued. Caution to avoid hypotension while on nifedipine. If renal function improves and he is able to return to losartan, consider switching away from nifedipine to another agent. Please reassess hemoglobin/anemia in 1 week. Please reassess for ongoing risk of VTE, and discontinue or prolonged course of prophylactic anticoagulation. Continue optimization of diabetes control. For now usual Tresiba dose is not continued as glucose has been good with 4-6 units of sliding scale insulin intermittently. Monitor glucose. Adjust insulin therapy accordingly. Please continue follow-up with urology office as previously for obstructive sleep apnea, obesity hypoventilation syndrome. Encourage nightly CPAP if may be agreeable to this. Please continue follow-up with pulmonology office as before for follow-up after renal cell carcinoma nephrectomies. On follow-up with primary care provider, please assist him with weight loss options. Discharge Attestations Time Spent in Discharge Care*: greater than 30 min Status at Discharge: Cognitive status at discharge: cognitively intact, Behavioral status at discharge: cooperative, Quality Metrics Clinical Quality Measures During this hospital stay, did patient experience: None Coding Level of Care Code Acute Hardware Installation Coordinator for Patricia Reid Diagnoses Acute respiratory failure with hypoxia and hypercapnia J96.01; J96.02 ARDS (adult respiratory distress syndrome) J80 Sepsis A41.9 Pneumonia due to 2019-nCoV U07.1; J12.89 Acute exacerbation of CHF (congestive heart failure) I50.9 CHF (congestive heart failure), NYHA class III I50.32 Congestive heart failure type: diastolic Congestive heart failure chronicity: chronic KAYLEEN (acute kidney injury) N17.9 Hypernatremia E87.0 Anemia D64.9 Cardiac arrest I46.9 Physical deconditioning R53.81
[2020-08-31] MEDS: enoxaparin 120 mg/0.8 mL Syringe SUBCUT (15:31)
--- NOTE | 2020-08-31 16:35 | PC.NURSE ---
Called report to Kristina at [facility]. Awaiting transport.
[2020-08-31 17:12] LABS: Glucose Point of Care 178 mg/dL (70-110)
--- NOTE | 2020-08-31 18:45 | PC.NURSE ---
Received bedside report on patient from day RN. Assumed care at this time.
--- NOTE | 2020-08-31 19:00 | PC.NURSE ---
Patients daughter here to see patient before he is transported to [facility].
--- NOTE | 2020-08-31 19:58 | PC.NURSE ---
Received bedside report on patient from RN. Assumed care at this time.
--- NOTE | 2020-08-31 20:00 | PC.NURSE ---
Transport here and patient being transported at this time to [facility] via stretcher.
== END 2020-08-31 20:00 | disposition skilled nursing facility (03) | DRG 870 ==
LOC: ER 02:26 → MS 2A 03:25
PROVIDERS: Internal Medicine; Internal Medicine Nephrology; Student in an Organized Health Care Education/Training Program; Admitting Provider Internal Medicine; Emergency Provider Emergency Medicine; PCP Internal Medicine; Visit Provider Internal Medicine
DX: A41.9 Sepsis, unspecified organism (principal); U07.1 COVID-19; J12.82 Pneumonia due to coronavirus disease 2019; I50.33 Acute on chronic diastolic (congestive) heart failure; J96.02 Acute respiratory failure with hypercapnia; J96.01 Acute respiratory failure with hypoxia; N17.0 Acute kidney failure with tubular necrosis; I46.9 Cardiac arrest, cause unspecified; E87.4 Mixed disorder of acid-base balance; I13.0 Hypertensive heart and chronic kidney disease with heart failure and stage 1 through stage 4 chronic kidney disease, or unspecified chronic kidney disease; N18.4 Chronic kidney disease, stage 4 (severe); E66.2 Morbid (severe) obesity with alveolar hypoventilation; Z68.41 Body mass index [BMI] 40.0-44.9, adult; G93.1 Anoxic brain damage, not elsewhere classified; B37.0 Candidal stomatitis; E87.5 Hyperkalemia; E11.22 Type 2 diabetes mellitus with diabetic chronic kidney disease; Z90.5 Acquired absence of kidney; Z85.528 Personal history of other malignant neoplasm of kidney; E11.42 Type 2 diabetes mellitus with diabetic polyneuropathy; E11.51 Type 2 diabetes mellitus with diabetic peripheral angiopathy without gangrene; D64.9 Anemia, unspecified; Z79.82 Long term (current) use of aspirin; I34.0 Nonrheumatic mitral (valve) insufficiency
CPT/HCPCS: 12345; 31500; 36415; 36416; 36592; 36600; 51702; 71045; 72170; 80048; 80051; 80053; 80069; 80202; 81001; 82330; 82550; 82728; 82803; 82805; 82962; 83540; 83550; 83605; 83615; 83735; 83880; 84100; 84145; 85025; 85049; 85378; 85384; 85610; 85651; 86140; 86403; 87040; 87070; 87086; 87106; 87186; 87205; 87449; 87506; 87641; 92523; 92610; 93005; 93306; 93970; 94002; 94003; 94640; 94660; 94799; 96372; 97110; 97163; 97166; 97530; 97535; 99283; 99291; J0360; J0456; J0610; J0743; J1100; J1450; J1650; J1815; J1940; J1956; J2060; J2250; J2704; J3010; J3370; J3490; J7050; J7512; J7626; Q3014

== ENCOUNTER 2020-10-04 13:00 | Inpatient (IN) | payer MEDICAID, SELFPAY ==
[2020-10-04] VITALS (12 sets, daily range): BP systolic 130–174; BP diastolic 61–90; PULSE 73–78; RESP 18–22; TEMP 36.4–37.1; O2SAT 86–94; BMI 41.5
--- NOTE | 2020-10-04 13:09 | XRR_ITS ---
PROCEDURE INFORMATION: Exam: XR Chest Exam date and time: 10/04/2020 1:24 PM Age: 50 years old Clinical indication: Cough and dyspnea; Patient HX: Post covid, SOB; Additional info: Dyspnea/cough TECHNIQUE: Imaging protocol: XR of the chest Views: 1 view. COMPARISON: CR XR chest 1V portable [id number] 08/30/2020 7:02 AM FINDINGS: Lungs: Unremarkable. No consolidation. Pleural spaces: Unremarkable. No pleural effusion. No pneumothorax. Heart/Mediastinum: The cardiac silhouette is enlarged but unchanged. Bones/joints: Unremarkable. XR/XR chest 1V portable [id number] IMPRESSION: 1. Stable cardiac enlargement. 2. The lungs are clear.
[2020-10-04 13:16] LABS: Hematocrit 31.1 % (42.0-52.0); Hemoglobin 9.2 g/dL (11.7-16.6); Mean Corpuscular HGB Conc 29.6 g/dL (30.0-36.0); Mean Corpuscular Hemoglobin 26.8 pg (28.0-34.0); Mean Corpuscular Volume 90.7 fL (80-94); Mean Platelet Volume 10.1 fL (7.4-10.4); Platelet Count 279 10^3/cmm (130-400); Red Blood Count 3.43 10^6/uL (4.1-5.3); Red Cell Distribution Width 15.2 % (12.1-15.1); White Blood Count 10.4 10^3/uL (4.0-10.0)
[2020-10-04 13:21] LABS: ABG PCO2 59.6 mmHg (35-45); ABG PH Result 7.24 (7.35-7.45); Alveolar-Arterial Oxygen Gradi 3.7 mmHg (5-10); Arterial Blood Gas Hematocrit 28.7 % (42-52); Base Excess ABG -2.3 mmol/L (-2.0-2.0); Blood Gas Allen Test Pos; Blood Gas Sample Type Arterial; Carboxyhemoglobin 2.1 %THgb (0.4-20.1); HCO3 ABG 25.5 mmol/L (22-26); HGB O2 Sat 81.3 % (95-100); Ionized Calcium Level - ABG 1.2 mmol/L (1.1-1.4); Potassium Level - ABG 5.5 mmol/L (3.5-5.0); Total Hemoglobin 9.4 g/dL (14-18)
[2020-10-04 13:23] LABS: Blood Gas Sample Site Radial, left; Oxygen Device NC
--- NOTE | 2020-10-04 13:29 | ECG_ITS ---
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1970 Requested By: Jerry Mario Order Number: [id number] Reading MD: MATILDE BOOKER Measurements Intervals [place] Rate: 80 P: 58 [place]: 171 QRS: 114 QRSD: 110 T: 31 QT: 393 QTc: 454 Interpretive Statements SINUS RHYTHM PATTERN CONSISTENT WITH PULMONARY DISEASE POSSIBLE RIGHT VENTRICULAR HYPERTROPHY [SOME/ALL OF: PROMINENT R IN V1, LATE TRANSITION, RAD, JEROME, SSS] SEPTAL MYOCARDIAL INFARCTION , PROBABLY OLD [40+ ms Q WAVE IN V1/V2] Compared to ECG 08/19/2020 02:41:15 Myocardial infarct finding now present ST (T wave) deviation no longer present Electronically Signed On 10-04-2020 18:27:56 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
[2020-10-04 13:33] LABS: Alanine Aminotransferase 11 U/L (0-41); Albumin Level 3.4 g/dL (3.5-5.2); Alkaline Phosphatase 134 IU/L (40-130); Anion Gap 16.6 (5-19); Aspartate Amino Transferase 10 U/L (0-40); Blood Urea Nitrogen 62 mg/dL (6-20); Calcium 8.7 mg/dL (8.5-10.5); Carbon Dioxide 24 mmol/L (22-29); Chloride 101 mmol/L (98-107); Creatine Phosphokinase 109 U/L (39-308); Globulin 3.9 g/dL (1.3-4.6); Glomerular Filtration Rate 16.4 mL/min (90-130); Glucose 118 mg/dL (65-115); Lipase 16 U/L (13-60); Osmolality Calculated 301 mOsm/kg (285-295); Potassium 5.6 mmol/L (3.5-5.1); Sodium 136 mmol/L (136-145); Total Bilirubin 0.3 mg/dL (0.15-1.2); Total Protein 7.3 g/dL (6.6-8.7)
[2020-10-04 13:40] LABS: Lactic Sepsis W/Reflex 0.6 mmol/L (0.5-2.2)
[2020-10-04 13:53] LABS: Slide Review Slide Review Perform
[2020-10-04 13:59] LABS: Absolute Eosinophils 0.4 10^3/cmm (0.0-0.7); Absolute Segmented Neutrophil 8.2 10/cmm (1.6-7.1); Basophils Absolute 0.2 10^3/cmm (0.0-0.2); Eosinophils 4 %; Lymphocytes 1 %; Monocytes Absolute 0.4 10^3/cmm (0.1-0.6); Segmented Neutrophils 79 %; Total Cells Counted 100 (0-100); Troponin(5th) Baseline 379 ng/L (0-15)
[2020-10-04 14:00] LABS: Absolute Neutrophil 8.2 10^3/cmm (1.4-6.5); Anisocytosis Trace; Platelet Estimate Normal (Normal); Polychromasia Trace
--- NOTE | 2020-10-04 14:38 | ED_ITS ---
HPI - SOB/Dyspnea General: Chief Complaint: Shortness of Breath/Dyspnea Stated Complaint: SHORT OF BREATH Time Seen by Provider: 10/04/20 13:01 History of Present Illness: HPI Narrative: 50-year-old male presents emergency room via EMS altered mental status short of breath and lethargic. He had recently been hospitalized for Covid and then sent to a long-term rehab hospital in [place] he was discharged from there yesterday they are trying to get him to take some pills he became essentially nonresponsive. Family stated some hard time tracking his oxygen saturations and they were lower the turn of the oxygen I try to get him to take some pills he became upset and refused to take some ice when he became nonresponsive and EMS was called. They had him on nonrebreather on arrival here we titrated him back down to his baseline of 3 now 4 L/min nasal cannula his oxygen sats with it hovering around 90. A blood gas done shortly after arrival. Patient does respond he states he has not had any chest pain he denies any increase in cough or shortness of breath denies abdominal pain or back pain. Does have a Melgar in place. MD elicited complaint: shortness of breath and chest pain Pertinent past history: COPD Onset (ago): hour(s) Context: recent illness (Patient extended hospital stay for Covid) Timing: constant Severity: moderate Known history of: congestive heart failure Associated symptoms: Reports cough, myalgias and nausea; Deny abdominal pain, chest congestion, chest pain, diaphoresis, dizziness, extremity pain, fever(s), hemoptysis, lightheadedness, orthopnea, palpitations, paresthesias, polydipsia, polyuria, rash, sense of impending doom, syncope or vomiting Review of Systems Const: Denies: fever(s) or diaphoresis Card: Denies: chest pain, palpitations, lightheadedness, syncope or orthopnea Resp: Denies: hemoptysis or chest congestion GI: Reports: nausea; Denies: abdominal pain or vomiting Musc: Denies: extremity pain Neuro: Denies: dizziness Endo: Denies: polyuria or polydipsia FORMERLY [facility], [facility] ED PFSH: Medical History Accelerated hypertension Acute on chronic diastolic (congestive) heart failure Acute respiratory failure with hypoxia Acute respiratory failure with hypoxia and hypercapnia [id number] kidney injury Anasarca Anemia ARDS (adult respiratory distress syndrome) Cancer Cardiac arrest Cataract (lens) fragments in eye following cataract surgery, bilateral CHF (congestive heart failure), NYHA class III Chronic kidney disease CKD stage 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 Congestive cardiac failure Diabetes Fracture of fifth metatarsal bone of left foot Fracture of fourth metatarsal bone of left foot Hypertension Laceration Metabolic alkalosis Neuropathy Pneumonia due to 2018-nCoV PVD (peripheral vascular disease) Renal cell carcinoma History bilateral renal cell carcinoma 2007 then recurrence on the contralateral side 2011. No recurrence for long-term follow-up with some suspicion on CT scan April 2020. Type 2 diabetes mellitus with diabetic polyneuropathy Surgical History H/O partial nephrectomy bilateral Hx of lymph node excision Family History Father Diabetes Cancer Metastatic prostate cancer to liver Mother Diabetes Grandfather Diabetes Cancer Other Hyperlipidemia Social History Smoking and tobacco status: never smoked Alcohol intake: current Alcohol intake frequency: holidays/special occasions only Lives independently: Yes Household members: spouse Housing: House Marital status: Current occupational status: retired History of recent travel: No Current gender identity: Male Physical Exam Const: COMMON NORMALS: no acute distress GENERAL APPEARANCE: cooperative and comfortable HENMT: COMMON NORMALS: normocephalic, atraumatic and hearing grossly normal bilaterally HEAD & SCALP: normocephalic and atraumatic Neck/C-Spine: COMMON NORMALS: no JVD Resp: COMMON NORMALS: normal respiratory effort, No retractions and No use of accessory muscles AUSCULTATION: diminished lung sounds Cardio: COMMON NORMALS: no JVD, regular rate, regular rhythm and No murmurs present (Cardio) RATE: regular rate RHYTHM: regular rhythm GI: COMMON NORMALS: Soft to palpation and No hepatosplenomegaly present AUSCULTATION: Yes normoactive bowel sounds PALPATION: Yes Soft to palpation, No Tenderness to palpation present (GI), No Guarding due to palpation present (GI) and Yes No hepatosplenomegaly present Extremity: COMMON NORMALS: normal to inspection, capillary refill normal, no clubbing, cyanosis or edema, no calf tenderness and no pedal edema Skin: COMMON NORMALS: no rashes or lesions noted GENERAL SKIN EXAM: no rashes or lesions noted Course Vital Signs: Vital signs: Vital Signs Temperature 98.5 F 10/05/20 07:08 Pulse Rate 71 10/05/20 07:08 Respiratory Rate 22 H 10/05/20 07:08 Blood Pressure 151/76 10/05/20 07:08 Pulse Oximetry 93 10/05/20 07:08 MDM - SOB/Dyspnea MDM Narrative: Medical decision making narrative: Patient has a positive delta troponin was started on heparin. He has chronic kidney disease with it appears to be an acute exacerbation his potassium is elevated his baseline at [facility] look like it was in the low threes at 3.9 today. We will go ahead and admit discussed with hospitalist will also consult cardiology. Lab Data: Labs: Lab Results 10/04/20 10/04/20 10/04/20 Range/Units 13:04 13:04 13:04 WBC 10.4 H (4.0-10.0) 10^3/ uL RBC 3.43 L (4.1-5.3) 10^6/u L Hgb 9.2 L (11.7-16.6) g/dL Hct 31.1 L (42.0-52.0) % MCV 90.7 (80-94) fL MCH 26.8 L (28.0-34.0) pg MCHC 29.6 L (30.0-36.0) g/dL RDW 15.2 H (12.1-15.1) % Plt Count 279 (130-400) 10^3/c mm MPV 10.1 (7.4-10.4) fL Lymph % (Auto) Not Reportable Wagoner % (Auto) Not Reportable Lymph # (Auto) Not Reportable Wagoner # (Auto) Not Reportable Total Counted 100 (0-100) Atypical Lymphs % 0.0 (0-5) % Absolute Neutrophi ls 8.2 H (1.4-6.5) 10^3/c mm Segmented Neutroph ils 79 % Abs Segm Neuts (Ma n) 8.2 H (1.6-7.1) 10/cmm Band Neutrophils 0.0 % Abs Band Neuts (Ma n) 0.0 (0.0-1.2) 10^3/c mm Lymphocytes (Manua l) 1 % Monocytes (Manual) 4.0 % Absolute Monocytes 0.4 (0.1-0.6) 10^3/c mm Eosinophils (Manua l) 4 % Absolute Eosinophi ls 0.4 (0.0-0.7) 10^3/c mm Basophils (Manual) 2.0 % Absolute Basophils 0.2 (0.0-0.2) 10^3/c mm Metamyelocytes 4.0 % Promyelocytes 5.0 % Nucleated RBCs 1.0 (0-1) /100WBC Platelet Estimate Normal (Normal) Polychromasia Trace Anisocytosis Trace Specimen Type Sample Site ABG pH (7.35-7.45) ABG pCO2 (35-45) mmHg ABG pO2 (80.0-100.0) mmH g ABG HCO3 (22-26) mmol/L ABG O2 Saturation ABG Base Excess (-2.0-2.0) mmol/ L Jesus Test A-a O2 Gradient (5-10) mmHg Hematocrit (42-52) % Hgb O2 Saturation (95-100) % Carboxyhemoglobin (0.4-20.1) %THgb Methemoglobin (0.4-1.5) % Total Hemoglobin (14-18) g/dL Ionized Calcium (1.1-1.4) mmol/L O2 Delivery Device O2 Liters/Min % Specimen Drawn By Aircraft Restorer ID Sodium 136 (136-145) mmol/L Potassium 5.6 H (3.5-5.1) mmol/L Chloride 101 (98-107) mmol/L Carbon Dioxide 24 (22-29) mmol/L Anion Gap 16.6 (5-19) BUN 62 H (6-20) mg/dL Creatinine 3.9 H (0.7-1.2) mg/dL GFR Calculation 16.4 L (90-130) mL/min Glucose 118 H (65-115) mg/dL Calculated Osmolal ity 301 H (285-295) mOsm/k g Lactic Acid (0.5-2.2) mmol/L Calcium 8.7 (8.5-10.5) mg/dL Total Bilirubin 0.3 (0.15-1.2) mg/dL AST 10 (0-40) U/L ALT 11 (0-41) U/L Alkaline Phosphata se 134 H (40-130) IU/L Creatine Kinase 109 (39-308) U/L Troponin T Baselin e 379 H* (0-15) ng/L Troponin T 120 Min herson (0-15) ng/L Delta Troponin T (0-10) ABS# NT-Pro-B Natriuret Pep (0-125) pg/mL Total Protein 7.3 (6.6-8.7) g/dL Albumin 3.4 L (3.5-5.2) g/dL Globulin 3.9 (1.3-4.6) g/dL Lipase 16 (13-60) U/L Urine Color (Yellow) Urine Appearance (CLEAR) Urine pH (5-7) Ur Specific Gravit y (1.005-1.030) Urine Protein (Negative) Urine Glucose (UA) (Normal) Urine Ketones (Negative) Urine Blood (Negative) Urine Nitrate (Negative) Urine Bilirubin (Negative) Urine Urobilinogen (Negative) mg/dL Ur Leukocyte Leisa ase (Negative) Urine RBC (0-2) /hpf Urine WBC (0-5) /hpf Ur Squamous Epith Cells (0-5) /hpf Amorphous Sediment Urine Bacteria (NONE) /hpf Salicylates (3-10) mg/dL Ethyl Alcohol (0-10) mg/dL Serum Ketones (Negative) 10/04/20 10/04/20 10/04/20 Range/Units 13:04 13:12 13:13 WBC (4.0-10.0) 10^3/ uL RBC (4.1-5.3) 10^6/u L Hgb (11.7-16.6) g/dL Hct (42.0-52.0) % MCV (80-94) fL MCH (28.0-34.0) pg MCHC (30.0-36.0) g/dL RDW (12.1-15.1) % Plt Count (130-400) 10^3/c mm MPV (7.4-10.4) fL Lymph % (Auto) Wagoner % (Auto) Lymph # (Auto) Wagoner # (Auto) Total Counted (0-100) Atypical Lymphs % (0-5) % Absolute Neutrophi ls (1.4-6.5) 10^3/c mm Segmented Neutroph ils % Abs Segm Neuts (Ma n) (1.6-7.1) 10/cmm Band Neutrophils % Abs Band Neuts (Ma n) (0.0-1.2) 10^3/c mm Lymphocytes (Manua l) % Monocytes (Manual) % Absolute Monocytes (0.1-0.6) 10^3/c mm Eosinophils (Manua l) % Absolute Eosinophi ls (0.0-0.7) 10^3/c mm Basophils (Manual) % Absolute Basophils (0.0-0.2) 10^3/c mm Metamyelocytes % Promyelocytes % Nucleated RBCs (0-1) /100WBC Platelet Estimate (Normal) Polychromasia Anisocytosis Specimen Type Arterial Sample Site Radial, left ABG pH 7.24 L (7.35-7.45) ABG pCO2 59.6 H (35-45) mmHg ABG pO2 51.0 L (80.0-100.0) mmH g ABG HCO3 25.5 (22-26) mmol/L ABG O2 Saturation 84.0 ABG Base Excess -2.3 L (-2.0-2.0) mmol/ L Jesus Test Pos A-a O2 Gradient 3.7 L (5-10) mmHg Hematocrit 28.7 L (42-52) % Hgb O2 Saturation 81.3 L (95-100) % Carboxyhemoglobin 2.1 (0.4-20.1) %THgb Methemoglobin 1.0 (0.4-1.5) % Total Hemoglobin 9.4 L (14-18) g/dL Ionized Calcium 1.2 (1.1-1.4) mmol/L O2 Delivery Device Nc O2 Liters/Min 3.0 % Specimen Drawn By Aircraft Restorer ID jmn Sodium 139.0 (136-145) mmol/L Potassium 5.5 H (3.5-5.1) mmol/L Chloride (98-107) mmol/L Carbon Dioxide (22-29) mmol/L Anion Gap (5-19) BUN (6-20) mg/dL Creatinine (0.7-1.2) mg/dL GFR Calculation (90-130) mL/min Glucose 130.0 H (65-115) mg/dL Calculated Osmolal ity (285-295) mOsm/k g Lactic Acid 0.6 (0.5-2.2) mmol/L Calcium (8.5-10.5) mg/dL Total Bilirubin (0.15-1.2) mg/dL AST (0-40) U/L ALT (0-41) U/L Alkaline Phosphata se (40-130) IU/L Creatine Kinase (39-308) U/L Troponin T Baselin e (0-15) ng/L Troponin T 120 Min herson (0-15) ng/L Delta Troponin T (0-10) ABS# NT-Pro-B Natriuret Pep (0-125) pg/mL Total Protein (6.6-8.7) g/dL Albumin (3.5-5.2) g/dL Globulin (1.3-4.6) g/dL Lipase (13-60) U/L Urine Color (Yellow) Urine Appearance (CLEAR) Urine pH (5-7) Ur Specific Gravit y (1.005-1.030) Urine Protein (Negative) Urine Glucose (UA) (Normal) Urine Ketones (Negative) Urine Blood (Negative) Urine Nitrate (Negative) Urine Bilirubin (Negative) Urine Urobilinogen (Negative) mg/dL Ur Leukocyte Leisa ase (Negative) Urine RBC (0-2) /hpf Urine WBC (0-5) /hpf Ur Squamous Epith Cells (0-5) /hpf Amorphous Sediment Urine Bacteria (NONE) /hpf Salicylates < 0.3 L (3-10) mg/dL Ethyl Alcohol < 10 (0-10) mg/dL Serum Ketones (Negative) 10/04/20 10/04/20 10/04/20 Range/Units 13:44 15:07 15:26 WBC (4.0-10.0) 10^3/ uL RBC (4.1-5.3) 10^6/u L Hgb (11.7-16.6) g/dL Hct (42.0-52.0) % MCV (80-94) fL MCH (28.0-34.0) pg MCHC (30.0-36.0) g/dL RDW (12.1-15.1) % Plt Count (130-400) 10^3/c mm MPV (7.4-10.4) fL Lymph % (Auto) Wagoner % (Auto) Lymph # (Auto) Wagoner # (Auto) Total Counted (0-100) Atypical Lymphs % (0-5) % Absolute Neutrophi ls (1.4-6.5) 10^3/c mm Segmented Neutroph ils % Abs Segm Neuts (Ma n) (1.6-7.1) 10/cmm Band Neutrophils % Abs Band Neuts (Ma n) (0.0-1.2) 10^3/c mm Lymphocytes (Manua l) % Monocytes (Manual) % Absolute Monocytes (0.1-0.6) 10^3/c mm Eosinophils (Manua l) % Absolute Eosinophi ls (0.0-0.7) 10^3/c mm Basophils (Manual) % Absolute Basophils (0.0-0.2) 10^3/c mm Metamyelocytes % Promyelocytes % Nucleated RBCs (0-1) /100WBC Platelet Estimate (Normal) Polychromasia Anisocytosis Specimen Type Arterial Sample Site Lr ABG pH 7.24 L (7.35-7.45) ABG pCO2 61.4 H* (35-45) mmHg ABG pO2 61.1 L (80.0-100.0) mmH g ABG HCO3 26.2 H (22-26) mmol/L ABG O2 Saturation 90.1 ABG Base Excess -1.8 (-2.0-2.0) mmol/ L Jesus Test Pos A-a O2 Gradient 15.7 H (5-10) mmHg Hematocrit 28.4 L (42-52) % Hgb O2 Saturation 97.3 (95-100) % Carboxyhemoglobin 2.0 (0.4-20.1) %THgb Methemoglobin 1.1 (0.4-1.5) % Total Hemoglobin Not Reportable (14-18) g/dL Ionized Calcium 1.1 (1.1-1.4) mmol/L O2 Delivery Device Nc O2 Liters/Min 4.0 % Specimen Drawn By Ronnie Aircraft Restorer ID Ronnie Sodium 139.0 (136-145) mmol/L Potassium 5.6 H (3.5-5.1) mmol/L Chloride (98-107) mmol/L Carbon Dioxide (22-29) mmol/L Anion Gap (5-19) BUN (6-20) mg/dL Creatinine (0.7-1.2) mg/dL GFR Calculation (90-130) mL/min Glucose 129.0 H (65-115) mg/dL Calculated Osmolal ity (285-295) mOsm/k g Lactic Acid (0.5-2.2) mmol/L Calcium (8.5-10.5) mg/dL Total Bilirubin (0.15-1.2) mg/dL AST (0-40) U/L ALT (0-41) U/L Alkaline Phosphata se (40-130) IU/L Creatine Kinase (39-308) U/L Troponin T Baselin e (0-15) ng/L Troponin T 120 Min herson 407.8 H (0-15) ng/L Delta Troponin T 28.8 H* (0-10) ABS# NT-Pro-B Natriuret Pep (0-125) pg/mL Total Protein (6.6-8.7) g/dL Albumin (3.5-5.2) g/dL Globulin (1.3-4.6) g/dL Lipase (13-60) U/L Urine Color Yellow (Yellow) Urine Appearance Cloudy (CLEAR) Urine pH 5 (5-7) Ur Specific Gravit y 1.020 (1.005-1.030) Urine Protein 3+ H (Negative) Urine Glucose (UA) 1+ (Normal) Urine Ketones Negative (Negative) Urine Blood 3+ H (Negative) Urine Nitrate Negative (Negative) Urine Bilirubin Neg (Negative) Urine Urobilinogen Norm (Negative) mg/dL Ur Leukocyte Leisa ase Negative (Negative) Urine RBC 10-15 H (0-2) /hpf Urine WBC 10-15 H (0-5) /hpf Ur Squamous Epith Cells 0-4 H (0-5) /hpf Amorphous Sediment Not Reportable Urine Bacteria 1+ H (NONE) /hpf Salicylates (3-10) mg/dL Ethyl Alcohol (0-10) mg/dL Serum Ketones (Negative) 10/04/20 10/04/20 10/04/20 Range/Units 16:17 16:17 16:18 WBC (4.0-10.0) 10^3/ uL RBC (4.1-5.3) 10^6/u L Hgb (11.7-16.6) g/dL Hct (42.0-52.0) % MCV (80-94) fL MCH (28.0-34.0) pg MCHC (30.0-36.0) g/dL RDW (12.1-15.1) % Plt Count (130-400) 10^3/c mm MPV (7.4-10.4) fL Lymph % (Auto) Wagoner % (Auto) Lymph # (Auto) Wagoner # (Auto) Total Counted (0-100) Atypical Lymphs % (0-5) % Absolute Neutrophi ls (1.4-6.5) 10^3/c mm Segmented Neutroph ils % Abs Segm Neuts (Ma n) (1.6-7.1) 10/cmm Band Neutrophils % Abs Band Neuts (Ma n) (0.0-1.2) 10^3/c mm Lymphocytes (Manua l) % Monocytes (Manual) % Absolute Monocytes (0.1-0.6) 10^3/c mm Eosinophils (Manua l) % Absolute Eosinophi ls (0.0-0.7) 10^3/c mm Basophils (Manual) % Absolute Basophils (0.0-0.2) 10^3/c mm Metamyelocytes % Promyelocytes % Nucleated RBCs (0-1) /100WBC Platelet Estimate (Normal) Polychromasia Anisocytosis Specimen Type Sample Site ABG pH (7.35-7.45) ABG pCO2 (35-45) mmHg ABG pO2 (80.0-100.0) mmH g ABG HCO3 (22-26) mmol/L ABG O2 Saturation ABG Base Excess (-2.0-2.0) mmol/ L Jesus Test A-a O2 Gradient (5-10) mmHg Hematocrit (42-52) % Hgb O2 Saturation (95-100) % Carboxyhemoglobin (0.4-20.1) %THgb Methemoglobin (0.4-1.5) % Total Hemoglobin (14-18) g/dL Ionized Calcium (1.1-1.4) mmol/L O2 Delivery Device O2 Liters/Min % Specimen Drawn By Aircraft Restorer ID Sodium (136-145) mmol/L Potassium (3.5-5.1) mmol/L Chloride (98-107) mmol/L Carbon Dioxide (22-29) mmol/L Anion Gap (5-19) BUN (6-20) mg/dL Creatinine (0.7-1.2) mg/dL GFR Calculation (90-130) mL/min Glucose (65-115) mg/dL Calculated Osmolal ity (285-295) mOsm/k g Lactic Acid 0.5 (0.5-2.2) mmol/L Calcium (8.5-10.5) mg/dL Total Bilirubin (0.15-1.2) mg/dL AST (0-40) U/L ALT (0-41) U/L Alkaline Phosphata se (40-130) IU/L Creatine Kinase (39-308) U/L Troponin T Baselin e (0-15) ng/L Troponin T 120 Min herson (0-15) ng/L Delta Troponin T (0-10) ABS# NT-Pro-B Natriuret Pep 26575 H (0-125) pg/mL Total Protein (6.6-8.7) g/dL Albumin (3.5-5.2) g/dL Globulin (1.3-4.6) g/dL Lipase (13-60) U/L Urine Color (Yellow) Urine Appearance (CLEAR) Urine pH (5-7) Ur Specific Gravit y (1.005-1.030) Urine Protein (Negative) Urine Glucose (UA) (Normal) Urine Ketones (Negative) Urine Blood (Negative) Urine Nitrate (Negative) Urine Bilirubin (Negative) Urine Urobilinogen (Negative) mg/dL Ur Leukocyte Leisa ase (Negative) Urine RBC (0-2) /hpf Urine WBC (0-5) /hpf Ur Squamous Epith Cells (0-5) /hpf Amorphous Sediment Urine Bacteria (NONE) /hpf Salicylates (3-10) mg/dL Ethyl Alcohol (0-10) mg/dL Serum Ketones Negative (Negative) Discharge Plan Discharge Admit Provider: Rodney Alvarado Clinical Impression: NSTEMI (non-ST elevated myocardial infarction), Pneumonia, CHF exacerbation, Diabetes, Hypertension, Urinary tract infection Condition: Stable Coding Level of Care Code ED Human Relations Professor for Chg Fwd Exam Comprehensive
[2020-10-04] MEDS: enoxaparin 120 mg/0.8 mL Syringe SUBCUT (15:04)
[2020-10-04 15:22] LABS: ABG PCO2 61.4 mmHg (35-45); ABG PH Result 7.24 (7.35-7.45)
[2020-10-04 15:23] LABS: Base Excess ABG -1.8 mmol/L (-2.0-2.0); Blood Gas Allen Test POS; Blood Gas Sample Site LR; Blood Gas Sample Type ARTERIAL; HCO3 ABG 26.2 mmol/L (22-26); Oxygen Device NC; Oxygen Saturation ABG 90.1; PO2 ABG 61.1 mmHg (80.0-100.0); Potassium Level - ABG 5.6 mmol/L (3.5-5.0)
[2020-10-04 15:24] LABS: Arterial Blood Gas Hematocrit 28.4 % (42-52); HGB O2 Sat 97.3 % (95-100); Ionized Calcium Level - ABG 1.1 mmol/L (1.1-1.4); Methemoglobin 1.1 % (0.4-1.5)
[2020-10-04 15:25] LABS: Alveolar-Arterial Oxygen Gradi 15.7 mmHg (5-10)
[2020-10-04 15:25] LABS: Urine Appearance Cloudy (CLEAR); Urine Color Yellow (Yellow); pH Urine 5 (5-7)
[2020-10-04 15:26] LABS: Add Urine Microscopic? YES; Bacteria Urine 1+ /hpf; Bilirubin Urine Neg (Negative); Blood Urine 3+ (Negative); Glucose Urine UA 1+ (Normal); Ketones Urine Negative (Negative); Leukocyte Esterase Urine Negative (Negative); Nitrate Urine Negative (Negative); Protein Urine 3+ (Negative); Squamous Epithelial Cell Urine 0-4 /hpf (0-5); Urobilinogen Urine Norm (Negative)
--- NOTE | 2020-10-04 15:29 | ECG_ITS ---
[facility] Test Date: 2020-10-04 Pat Name: Akil Velasco Department: Room: Gender: Male Nurse Supervisor: : 1970 Requested By: Jerry Mario Order Number: [id number] Reading MD: MATILDE BOOKER Measurements Intervals [place] Rate: 77 P: 51 AL: 174 QRS: 98 QRSD: 101 T: 40 QT: 392 QTc: 444 Interpretive Statements SINUS RHYTHM BORDERLINE RIGHT AXIS DEVIATION [QRS AXIS > 90] LOW QRS VOLTAGE IN EXTREMITY LEADS [QRS DEFLECTION < 0.5 mV IN LIMB LEADS] PATTERN CONSISTENT WITH PULMONARY DISEASE SEPTAL MYOCARDIAL INFARCTION , PROBABLY OLD [40+ ms Q WAVE IN V1/V2] Compared to ECG 10/04/2020 13:22:31 Low QRS voltage now present Atrial abnormality no longer present Myocardial infarct finding still present Electronically Signed On 10-04-2020 18:30:03 PLUG SHAPER HAND by MATILDE BOOKER [email or web address]
[2020-10-04 15:30] LABS: Add Urine Culture? Yes
[2020-10-04 15:50] LABS: Troponin 5 2HR 407.8 ng/L (0-15)
[2020-10-04 15:51] LABS: Troponin 5 2HR Delta 28.8 ABS# (0-10)
[2020-10-04] MEDS: heparin drip 25,000 UNIT/500 ML PREMIX 102.9 UNIT IV (16:00)
[2020-10-04] MEDS: levofloxacin-dextrose 5 % 750 MG/150 ML PREMIX 100 MG IV (16:12)
[2020-10-04 16:32] LABS: Alcohol Level < 10 mg/dL (0-10); Salicylate < 0.3 mg/dL (3-10)
[2020-10-04 16:34] LABS: Ketone (Acetest) Serum Negative (Negative)
[2020-10-04 16:42] LABS: Lactic Sepsis W/Reflex 0.5 mmol/L (0.5-2.2)
[2020-10-04] MEDS: sodium chloride 0.9% 1,000 ML 999 ML IV (16:44)
[2020-10-04] MEDS: heparin 5,000 unit/mL INJ 1 mL 4000 UNIT IVP (16:45)
[2020-10-04] MEDS: aspirin 81 mg Chew Tablet 324 MG PO (16:47)
[2020-10-04 17:22] LABS: NT Pro B Type Natriuretic Pept 19813 pg/mL (0-125)
--- NOTE | 2020-10-04 17:39 | PM.HP ---
Providers/Chief Complaint Primary Care Provider: Sulma Wetzel MD Chief Complaint: SHORT OF BREATH History of Present Illness Akil Velasco is a 50 year old male presents to emergency department with respiratory problem . When asked if he was short of breath he replied no. Reports that his oximetry showed as if he had respiratory problems. He denied any chest pain or abdominal pain. He just 2 days ago was discharged from rehab facility. He reports being somnolent and during my evaluation in ER he is confused and cannot provide much history frequently responding I cannot explain . Emergency department patient was found to be hypercapnic and hypoxic. He was placed on BiPAP with some improvement. 2 weeks ago he had Melgar catheter placed apparently for obstructive uropathy. He noted to have elevated troponin and clinically he is in acute heart failure. He has 2+ lower extremity swelling along with abdominal wall edema. Patient has been diabetic for 15 years but denies previous history of heart disease except heart failure. Apparently he had one episode of cardiac arrest several months ago when he was diagnosed with COVID-19 infection. Patient denied having any intervention at that time. Patient admits bearing diagnosis of obstructive sleep apnea and COPD and is supposed to be using trilogy but reports that he cannot tolerate mask. He has chronic kidney disease and reports that he needs to see Dr. Smith soon. Records show that the patient had bilateral renal cell carcinoma in 2007 and then 2011. Apparently latest CT in 2019 had some concerning findings of recurrence. He had partial bilateral nephrectomy. Review of Systems General: Reports: 10 or more systems reviewed and unremarkable except in HPI and below (Patient is somewhat confused and lethargic and I am not sure his answers ca) Medications/Allergies Home Medications Medication Instructions Recorded Confirmed Last Taken Type clonidine HCl 0.2 mg tablet 0.2 mg PO TID 03/25/20 10/04/20 04/14/20 History isosorbide mononitrate 30 mg PO DAILY #30 tab 04/18/20 10/04/20 Unknown Rx atorvastatin 80 mg PO DAILY 08/19/20 10/04/20 Unknown History albuterol sulfate 2 inh INHALATION Q6H PRN #8.5 g 08/31/20 10/04/20 Unknown Rx apixaban [Eliquis] 2.5 mg PO BID #10 tab 08/31/20 10/04/20 Unknown Rx artificial tears(hypromellose) 1 drp EYE-BOTH BEDTIME #15 ml 08/31/20 10/04/20 Unknown Rx [Isopto Tears] famotidine 20 mg PO BID 42 Days #84 tab 08/31/20 10/04/20 Unknown Rx fluconazole 200 mg PO DAILY #4 tab 08/31/20 10/04/20 Unknown Rx furosemide 40 mg PO BID #60 tab 08/31/20 10/04/20 Unknown Rx gabapentin 300 mg PO BID #0 cap 08/31/20 10/04/20 Unknown Rx hydralazine 75 mg PO TID #135 tab 08/31/20 10/04/20 Unknown Rx insulin aspart U-100 [Novolog See Rx Instructions .ROUTE 08/31/20 10/04/20 Unknown Rx U-100 Insulin aspart] .COMPLEX #10 ml nifedipine 60 mg PO DAILY #60 tab 08/31/20 10/04/20 Unknown Rx olanzapine 2.5 mg PO BEDTIME #3 tab 08/31/20 10/04/20 Unknown Rx prednisone 5 mg PO DAILY #3 tab 08/31/20 10/04/20 Unknown Rx sevelamer HCl 400 mg PO TID #30 tab 08/31/20 10/04/20 Unknown Rx venlafaxine 37.5 mg PO DAILY #30 tab 08/31/20 10/04/20 Unknown Rx alprazolam 0.5 mg PO BEDTIME PRN 10/04/20 10/04/20 Unknown History amlodipine 10 mg PO DAILY 10/04/20 10/04/20 Unknown History aspirin [Aspir-81] 81 mg PO DAILY 10/04/20 10/04/20 Unknown History bumetanide 2 mg PO DAILY 10/04/20 10/04/20 Unknown History carvedilol 25 mg PO BID 10/04/20 10/04/20 Unknown History dapagliflozin [Farxiga] 5 mg PO DAILY 10/04/20 10/04/20 Unknown History insulin glargine [Lantus U-100 15 unit SUBCUT DAILY 10/04/20 10/04/20 Unknown History Insulin] losartan 50 mg PO DAILY 10/04/20 10/04/20 Unknown History tamsulosin 0.4 mg PO DAILY 10/04/20 10/04/20 Unknown History Allergies Allergy/AdvReac Type Severity Reaction Status Date / Time No Known Allergies Allergy Verified 08/14/20 12:05 PFSH Acute PFSH: Medical History Accelerated hypertension Acute on chronic diastolic (congestive) heart failure Acute respiratory failure with hypoxia Acute respiratory failure with hypoxia and hypercapnia Ahtgl-ot-kqmocyf kidney injury Anasarca Anemia ARDS (adult respiratory distress syndrome) Cancer Cardiac arrest Cataract (lens) fragments in eye following cataract surgery, bilateral CHF (congestive heart failure), NYHA class III CKD stage 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 Congestive cardiac failure Diabetes Fracture of fifth metatarsal bone of left foot Fracture of fourth metatarsal bone of left foot Hypertension Laceration Metabolic alkalosis Neuropathy Pneumonia due to 2018- PVD (peripheral vascular disease) Renal cell carcinoma History bilateral renal cell carcinoma 2007 then recurrence on the contralateral side 2011. No recurrence for long-term follow-up with some suspicion on CT scan April 2020. Type 2 diabetes mellitus with diabetic polyneuropathy Surgical History H/O partial nephrectomy bilateral Hx of lymph node excision Family History (Updated 10/04/20 @ 17:53 by Rodney Alvarado MD) Father Diabetes Cancer Metastatic prostate cancer to liver Mother Diabetes Grandfather Diabetes Cancer Other Hyperlipidemia Social History Smoking and tobacco status: never smoked Alcohol intake: current Alcohol intake frequency: holidays/special occasions only Lives independently: Yes Household members: spouse Housing: House Marital status: Current occupational status: retired History of recent travel: No Current gender identity: Male Vitals/I&O/Wt Last Vital Signs Temp 98.7 F 10/04/20 13:00 Pulse 77 10/04/20 16:48 Resp 18 10/04/20 15:55 BP 153/90 10/04/20 15:55 Pulse Ox 93 10/04/20 16:48 Weight last 48 hrs Weight 142.882 kg Physical Exam Const: ORIENTATION/CONSCIOUSNESS: Yes oriented to person, Yes oriented to place, Yes confused (Cannot finish his thought and repeats same sentences frequently.) and Yes lethargic HENMT: COMMON NORMALS: normocephalic and atraumatic HEAD & SCALP: normocephalic and atraumatic Eye: COMMON NORMALS: EOMs intact bilaterally, conjunctivae normal and no scleral icterus CONJUNCTIVA: Yes conjunctivae normal Neck/C-Spine: COMMON NORMALS: no lymphadenopathy and no meningeal signs OTHER: Neck is very thick Lymph: LYMPHATIC: no lymphadenopathy noted Chest: COMMONS NORMALS: normal palpation of entire chest wall Resp: OTHER: Significantly decreased air movement throughout without rales rhonchi or wheezing. On BiPAP Cardio: COMMON NORMALS: regular rate, regular rhythm and No murmurs present (Cardio) RATE: regular rate RHYTHM: regular rhythm OTHER: 2+ lower extremity edema GI: COMMON NORMALS: Soft to palpation and non-tender PALPATION: Yes Soft to palpation RECTAL EXAM: Yes deferred OTHER: Obese with evidence of bilateral wall dependent edema. Umbilical hernia noted : COMMON NORMALS: Yes no CVA tenderness BLADDER/KIDNEY EXAM: Yes no CVA tenderness Back/Pelvis: COMMON NORMALS: no CVA tenderness and thoracic and lumbar spine normal to inspection Extremity: COMMON NORMALS: normal to inspection and capillary refill normal Neuro: COMMON NORMALS: patient oriented x3 and no focal motor deficits MENINGEAL SIGNS: Yes no meningeal signs Psych: COMMON NORMALS: cooperative; negative for mental status grossly normal and negative for Normal thought process present ATTITUDE: Yes calm INSIGHT: Poor insight present (Psych) JUDGEMENT: Poor judgement present (Psych) Skin: COMMON NORMALS: no rashes or lesions noted (Except bilateral chronic stasis dermatitis) GENERAL SKIN EXAM: no rashes or lesions noted Data : 10/04/20 13:04 10/04/20 13:04 Micro: Microbiology 10/04/20 13:44 Blood Culture - Preliminary Blood SPECIMEN COLLECTED 10/04/20 13:13 Blood Culture - Preliminary Blood SPECIMEN COLLECTED A&P Assessment and plan (1) Acute respiratory failure with hypoxia and hypercapnia: Status: Acute (2) Physical deconditioning: Status: Acute (3) Acute exacerbation of CHF (congestive heart failure): Status: Acute (4) Renal cell carcinoma: Status: Acute Qualifiers: Laterality: unspecified laterality Qualified Code(s): C64.9 - Malignant neoplasm of unspecified kidney, except renal pelvis (5) Non-ST elevation MD (NSTEMI): Status: Acute (6) Anasarca: Status: Acute (7) Morbid obesity with BMI of 40.0-44.9, adult: Status: Acute (8) Diabetes mellitus type 2 in obese: Status: Acute (9) Obesity hypoventilation syndrome: Status: Acute (10) Obstructive sleep apnea: Noncompliant with trilogy Status: Acute (11) Chronic kidney disease: Status: Acute (12) Urinary tract infection: Status: Acute (13) Toxic metabolic encephalopathy: Status: Acute Additional A&P Information PLAN: Admit to cardiac stepdown unit. Will aggressively diurese with monitoring of urinary output. Repeat echocardiogram. Last time study was very poor. Continue with BiPAP support. Continue heparin drip for now. Will treat patient with ceftriaxone and await culture results. We will discuss regarding medical compliance once patient's mental status improves Attestations Medical Necessity Statement*: Patient with heart failure and altered mental status with UTI requires close inpatient monitoring and treatment. I expect patient will require more than 2 midnights. Time Spent in Patient Care: Greater than 35 minutes Coding Level of Care Code Acute Sanitation Superintendent for Patricia Austind Diagnoses Acute respiratory failure with hypoxia and hypercapnia J96.01; J96.02 Physical deconditioning R53.81 Acute exacerbation of CHF (congestive heart failure) I50.9 Renal cell carcinoma C64.9 Laterality: unspecified laterality Non-ST elevation MD (NSTEMI) I21.4 Anasarca R60.1 Morbid obesity with BMI of 40.0-44.9, adult E66.01; Z68.41 Diabetes mellitus type 2 in obese E11.69; E66.9 Obesity hypoventilation syndrome E66.2 Obstructive sleep apnea G47.33 Chronic kidney disease N18.9 Urinary tract infection N39.0 Toxic metabolic encephalopathy G92
--- NOTE | 2020-10-04 18:00 | PC.NURSE ---
From ER Received pt from ER, oriented to place and name, and year. noted upper extremities occassional jerk movements. Pt is on 3 L NC with BIpap at bedside. Pt has Heparin drip running at 36 ml/hr per protocol on his right forearm. Left forearm has 2+ pitting edema from previous IV catheter on left AC. Pt has chronic Melgar catheter in place due to oliguria. Melgar catheter was placed since last week per pt report. Lower ext. has 1-2+ pitting edema with multiple scabs on skin. Oriented pt to staff. Call light within reach and provided to pt. Removed IV cath on left AC with pressure on. IV cath intact.
--- NOTE | 2020-10-04 18:21 | P.CONIM_ITS ---
Providers/Reason For Consult Consulting Physican/Specialty*: SHANICE Kendrick MD/cardiology Reason for Consult*: Patient with elevated troponin T/ Attending Physician: Rodney Alvarado MD Primary Care Provider: Sulma Wetzel MD History of Present Illness History of Present Illness Akil Velasco is a 50 year old male with multiple medical problems, is admitted to the hospital through the emergency room, where he was brought with altered mental status and impending respiratory failure. He also was found to have elevated troponin T with a positive delta at 2 hours. Cardiology consult is requested for further cardiac evaluation recommendations. This patient is a very poor historian. Information is from partly from the patient and also from the medical records. Mr. Velasco has a history of recurrent diastolic heart failure with a possibly preserved LV ejection fraction. He was recently admitted to the hospital with a Covid related pneumonia and respiratory failure. He apparently had a prolonged hospital course followed by intermediate placement for recuperation. He was brought home only couple of days ago. According to the patient, he was brought home by his and children, to be under their care. But they could not take care of him/he did not like their car e. So he decided to sleep off? He refused to take medications? So finally he was brought to the hospital for his further care He denies any chest pain or palpitations. He was initially placed on BiPAP in the emergency room which was later discontinued. Currently he is on oxygen by nasal cannula He is known to have multiple medical problems including recurrent diastolic heart failure, moderate obesity with the obstructive sleep apnea, bilateral partial nephrectomy for renal cancer, chronic kidney disease and features of nephrotic syndrome, essential benign hypertension/hospital admissions for hypertensive emergencies, insulin requiring diabetes, dyslipidemia, peripheral neuropathy, etc. He has no documented history for coronary artery disease or myocardial infarction. On 19 August, he was brought to the hospital with respiratory distress. He had the Covid infection at that time. En route to the hospital, based on the medical records, he had a cardiac arrest which required 2 minutes of CPR. Other details are not known. He has no document history for any significant cardiac arrhythmia. He had a recent Melgar's catheter placement for urinary obstruction. He denies any chest pain. He has some shortness of breath with activities. No orthopnea. No fever or chills. No significant cough. Review of Systems Narrative: CONSTITUTIONAL: No fever or chills. Has a feeling of generalized weakness EYES: No blurring of vision or other visual disturbances lately. ENT: No hoarseness of voice, auditory disturbances or sore throat. CARDIOVASCULAR: As mentioned above. RESPIRATORY: Shortness of breath as mentioned above GASTROINTESTINAL: No hematemesis or melena. GENITOURINARY: Chronic kidney disease and nephrotic syndrome INTEGUMENTARY: No skin rashes or history of skin cancer. NEURO: History of peripheral neuropathy PSYCHIATRIC: No history of psychosis or major depression. HEMATOLOGIC: Chronic anemia ENDOCRINE: Insulin requiring diabetes MUSCULOSKELETAL: No recent joint pain or swelling. ALLERGY/IMMUNOLOGY: As mentioned above. Meds/Allergies Home Medications and Allergies Home Medications Medication Instructions Recorded Confirmed Last Taken Type atorvastatin 80 mg PO DAILY 08/19/20 10/04/20 Unknown History albuterol sulfate 2 inh INHALATION Q6H PRN #8.5 g 08/31/20 10/04/20 Unknown Rx artificial tears(hypromellose) 1 drp EYE-BOTH BEDTIME #15 ml 08/31/20 10/04/20 Unknown Rx [Isopto Tears] furosemide 40 mg PO BID #60 tab 08/31/20 10/04/20 Unknown Rx gabapentin 300 mg PO BID #0 cap 08/31/20 10/04/20 Unknown Rx acetaminophen [Tylenol] 650 mg PO Q6H PRN 10/04/20 10/04/20 Unknown History alprazolam 0.5 mg PO BEDTIME PRN 10/04/20 10/04/20 Unknown History amlodipine 10 mg PO DAILY 10/04/20 10/04/20 Unknown History aspirin [Aspir-81] 81 mg PO DAILY 10/04/20 10/04/20 Unknown History bumetanide 2 mg PO DAILY 10/04/20 10/04/20 Unknown History carvedilol 25 mg PO BID 10/04/20 10/04/20 Unknown History clonidine HCl 0.3 mg PO Q8H 10/04/20 10/04/20 Unknown History famotidine 10 mg PO BID 10/04/20 10/04/20 Unknown History hydralazine 100 mg PO Q8H 10/04/20 10/04/20 Unknown History insulin glargine [Lantus U-100 15 unit SUBCUT DAILY 10/04/20 10/04/20 Unknown History Insulin] isosorbide mononitrate [Imdur] 120 mg PO DAILY 10/04/20 10/04/20 Unknown History sennosides 8.6 mg PO DAILY 10/04/20 10/04/20 Unknown History sevelamer HCl 800 mg PO BID 10/04/20 10/04/20 Unknown History tamsulosin 0.8 mg PO QPM 10/04/20 10/04/20 Unknown History venlafaxine 300 mg PO QAM 10/04/20 10/04/20 Unknown History Allergies Allergy/AdvReac Type Severity Reaction Status Date / Time No Known Allergies Allergy Verified 08/14/20 12:05 PFSH Acute PFSH: Medical History Accelerated hypertension Acute on chronic diastolic (congestive) heart failure Acute respiratory failure with hypoxia Acute respiratory failure with hypoxia and hypercapnia Hywyb-mx-bbykevg kidney injury Anasarca Anemia ARDS (adult respiratory distress syndrome) Cancer Cardiac arrest Cataract (lens) fragments in eye following cataract surgery, bilateral CHF (congestive heart failure), NYHA class III Chronic kidney disease CKD stage 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 Congestive cardiac failure Diabetes Fracture of fifth metatarsal bone of left foot Fracture of fourth metatarsal bone of left foot Hypertension Laceration Metabolic alkalosis Neuropathy Pneumonia due to 2018-nCoV PVD (peripheral vascular disease) Renal cell carcinoma History bilateral renal cell carcinoma 2007 then recurrence on the contralateral side 2011. No recurrence for long-term follow-up with some suspicion on CT scan April 2020. Type 2 diabetes mellitus with diabetic polyneuropathy Surgical History H/O partial nephrectomy bilateral Hx of lymph node excision Family History Father Diabetes Cancer Metastatic prostate cancer to liver Mother Diabetes Grandfather Diabetes Cancer Other Hyperlipidemia Social History Smoking and tobacco status: never smoked Alcohol intake: current Alcohol intake frequency: holidays/special occasions only Lives independently: Yes Household members: spouse Housing: House Marital status: Current occupational status: retired History of recent travel: No Current gender identity: Male Vitals/I&O/Wt Last Vital Signs Temp 98.7 F 10/04/20 13:00 Pulse 77 10/04/20 18:13 Resp 18 10/04/20 18:13 BP 161/82 10/04/20 18:13 Pulse Ox 94 10/04/20 18:13 Weight last 48 hrs Weight 315 lb Physical Exam Narrative: EXAM NARRATIVE: Intermittent GENERAL: The patient is alert and oriented times three. Not in any acute distress. Morbidly obese. Slightly short of breath. HEENT: No significant pallor, icterus or lymphadenopathy. The pupils are r eactant to light. Oral cavity: There are no mucous membrane lesions. Funduscopic examination: The fundus is not visualized NECK: Trachea appears to be central. No masses noted. No JVD or thyromegaly a ppreciated. No carotid bruit. RESPIRATORY: Chest is symmetrical. No intercostals muscle retraction or any accessory muscle activation. There is no chest wall tenderness. Breath sounds are heard bilaterally. No rales or rhonchi heard. No evidence of any consolidation. BREASTS: Deferred. Sounds are diminished in the bases. HEART: The PMI could not be palpated. No other palpable precordial events. First and second heart sounds are normal. No S3. No significant murmurs. Short systolic murmur the left sternal border. No diastolic murmurs. ABDOMEN: Abdomen is obese nontender no organomegaly bowel sounds are normally heard. Dependent edema in the lumbar region : Deferred. RECTAL: Deferred. LYMPHATIC: No lymphadenopathy noted in the neck region. EXTREMITIES: 2+ edema both lower extremities. Features of chronic venous stasis. Peripheral pulses are palpable in good volume and amplitude. MUSCULOSKELETAL: No acute joint deformities or swelling. SKIN: There are no significant scars or skin rash noted. NEUROPSYCHIATRIC: The patient is alert and oriented x2. No acute movements of the upper extremity intermittent jerking movements of the upper extremities Data Micro: Micro: Laboratory Last Values WBC 10.4 10^3/uL (4.0 -10.0) H 10/04/20 13:04 RBC 3.43 10^6/uL (4.1 -5.3) L 10/04/20 13:04 Hgb 9.2 g/dL (11.7-16 .6) L 10/04/20 13:04 Hct 31.1 % (42.0-52.0 ) L 10/04/20 13:04 MCV 90.7 fL (80-94) 10/04/20 13:04 MCH 26.8 pg (28.0-34. 0) L 10/04/20 13:04 MCHC 29.6 g/dL (30.0-3 6.0) L 10/04/20 13:04 RDW 15.2 % (12.1-15.1 ) H 10/04/20 13:04 Plt Count 279 10^3/cmm (130 -400) 10/04/20 13:04 MPV 10.1 fL (7.4-10.4 ) 10/04/20 13:04 Lymph % (Auto) Not Reportable 10/04/20 13:04 Rankin % (Auto) Not Reportable 10/04/20 13:04 Lymph # (Auto) Not Reportable 10/04/20 13:04 Rankin # (Auto) Not Reportable 10/04/20 13:04 Total Counted 100 (0-100) 10/04/20 13:04 Atypical Lymphs % 0.0 % (0-5) 10/04/20 13:04 Absolute Neutrophi ls 8.2 10^3/cmm (1.4 -6.5) H 10/04/20 13:04 Segmented Neutroph ils 79 % 10/04/20 13:04 Abs Segm Neuts (Ma n) 8.2 10/cmm (1.6-7 .1) H 10/04/20 13:04 Band Neutrophils 0.0 % 10/04/20 13:04 Abs Band Neuts (Ma n) 0.0 10^3/cmm (0.0 -1.2) 10/04/20 13:04 Lymphocytes (Manua l) 1 % 10/04/20 13:04 Monocytes (Manual) 4.0 % 10/04/20 13:04 Absolute Monocytes 0.4 10^3/cmm (0.1 -0.6) 10/04/20 13:04 Eosinophils (Manua l) 4 % 10/04/20 13:04 Absolute Eosinophi ls 0.4 10^3/cmm (0.0 -0.7) 10/04/20 13:04 Basophils (Manual) 2.0 % 10/04/20 13:04 Absolute Basophils 0.2 10^3/cmm (0.0 -0.2) 10/04/20 13:04 Metamyelocytes 4.0 % 10/04/20 13:04 Promyelocytes 5.0 % 10/04/20 13:04 Nucleated RBCs 1.0 /100WBC (0-1) 10/04/20 13:04 Platelet Estimate Normal (Normal) 10/04/20 13:04 Polychromasia Trace 10/04/20 13:04 Anisocytosis Trace 10/04/20 13:04 Specimen Type Arterial 10/04/20 15:07 Sample Site Lr 10/04/20 15:07 ABG pH 7.24 (7.35-7.45) L 10/04/20 15:07 ABG pCO2 61.4 mmHg (35-45) H* 10/04/20 15:07 ABG pO2 61.1 mmHg (80.0-1 00.0) L 10/04/20 15:07 ABG HCO3 26.2 mmol/L (22-2 6) H 10/04/20 15:07 ABG O2 Saturation 90.1 10/04/20 15:07 ABG Base Excess -1.8 mmol/L (-2.0 -2.0) 10/04/20 15:07 Jesus Test Pos 10/04/20 15:07 A-a O2 Gradient 15.7 mmHg (5-10) H 10/04/20 15:07 Hematocrit 28.4 % (42-52) L 10/04/20 15:07 Hgb O2 Saturation 97.3 % (95-100) 10/04/20 15:07 Carboxyhemoglobin 2.0 %THgb (0.4-20 .1) 10/04/20 15:07 Methemoglobin 1.1 % (0.4-1.5) 10/04/20 15:07 Total Hemoglobin Not Reportable 10/04/20 15:07 Sodium 139.0 mmol/L (131 -143) 10/04/20 15:07 Potassium 5.6 mmol/L (3.5-5 .0) H 10/04/20 15:07 Glucose 129.0 mg/dL (70-1 15) H 10/04/20 15:07 Ionized Calcium 1.1 mmol/L (1.1-1 .4) 10/04/20 15:07 O2 Delivery Device Nc 10/04/20 15:07 O2 Liters/Min 4.0 % 10/04/20 15:07 Specimen Drawn By Ronnie 10/04/20 15:07 Vice President Of Compliance ID Ronnie 10/04/20 15:07 Sodium 136 mmol/L (136-1 45) 10/04/20 13:04 Potassium 5.6 mmol/L (3.5-5 .1) H 10/04/20 13:04 Chloride 101 mmol/L (98-10 7) 10/04/20 13:04 Carbon Dioxide 24 mmol/L (22-29) 10/04/20 13:04 Anion Gap 16.6 (5-19) 10/04/20 13:04 BUN 62 mg/dL (6-20) H 10/04/20 13:04 Creatinine 3.9 mg/dL (0.7-1. 2) H 10/04/20 13:04 GFR Calculation 16.4 mL/min (90-1 30) L 10/04/20 13:04 Glucose 118 mg/dL (65-115 ) H 10/04/20 13:04 Calculated Osmolal ity 301 mOsm/kg (285- 295) H 10/04/20 13:04 Lactic Acid 0.5 mmol/L (0.5-2 .2) 10/04/20 16:17 Calcium 8.7 mg/dL (8.5-10 .5) 10/04/20 13:04 Total Bilirubin 0.3 mg/dL (0.15-1 .2) 10/04/20 13:04 AST 10 U/L (0-40) 10/04/20 13:04 ALT 11 U/L (0-41) 10/04/20 13:04 Alkaline Phosphata se 134 IU/L (40-130) H 10/04/20 13:04 Creatine Kinase 109 U/L (39-308) 10/04/20 13:04 Troponin T Baselin e 379 ng/L (0-15) H* 10/04/20 13:04 Troponin T 120 Min herson 407.8 ng/L (0-15) H 10/04/20 15:26 Delta Troponin T 28.8 ABS# (0-10) H* 10/04/20 15:26 NT-Pro-B Natriuret Pep 04860 pg/mL (0-12 5) H 10/04/20 16:18 Total Protein 7.3 g/dL (6.6-8.7 ) 10/04/20 13:04 Albumin 3.4 g/dL (3.5-5.2 ) L 10/04/20 13:04 Globulin 3.9 g/dL (1.3-4.6 ) 10/04/20 13:04 Lipase 16 U/L (13-60) 10/04/20 13:04 Urine Color Yellow (Yellow) 10/04/20 13:44 Urine Appearance Cloudy (CLEAR) 10/04/20 13:44 Urine pH 5 (5-7) 10/04/20 13:44 Ur Specific Gravit y 1.020 (1.005-1.0 30) 10/04/20 13:44 Urine Protein 3+ (Negative) H 10/04/20 13:44 Urine Glucose (UA) 1+ (Normal) 10/04/20 13:44 Urine Ketones Negative (Negati ve) 10/04/20 13:44 Urine Blood 3+ (Negative) H 10/04/20 13:44 Urine Nitrate Negative (Negati ve) 10/04/20 13:44 Urine Bilirubin Neg (Negative) 10/04/20 13:44 Urine Urobilinogen Norm mg/dL (Negat bharathi) 10/04/20 13:44 Ur Leukocyte Leisa ase Negative (Negati ve) 10/04/20 13:44 Urine RBC 10-15 /hpf (0-2) H 10/04/20 13:44 Urine WBC 10-15 /hpf (0-5) H 10/04/20 13:44 Ur Squamous Epith Cells 0-4 /hpf (0-5) H 10/04/20 13:44 Amorphous Sediment Not Reportable 10/04/20 13:44 Urine Bacteria 1+ /hpf (NONE) H 10/04/20 13:44 Salicylates < 0.3 mg/dL (3-10 ) L 10/04/20 13:04 Ethyl Alcohol < 10 mg/dL (0-10) 10/04/20 13:04 Serum Ketones Negative (Negati ve) 10/04/20 16:17 Microbiology 10/04/20 13:44 Blood Culture - Pr eliminary Blood SPECIMEN [facility] 10/04/20 13:13 Blood Culture - Pr eliminary Blood SPECIMEN [facility] A&P Assessment and plan (1) NSTEMI (non-ST elevated myocardial infarction): Patient may be carefully treated with heparin, beta-jag, statin, a spirin and Plavix. He may not be an ideal candidate for any invasive/interventional procedures. This needs to be discussed further. Optimizing medical treatment would be the initial plan of action. Status: Acute (2) Acute on chronic diastolic (congestive) heart failure: May be treated with careful IV diuresis. We will go ahead and do an echocardiogram to evaluate the LV function and rule out any other pathology. Will do close monitoring of the intake and output. Dose of the IV diuretics will be adjusted accordingly. Status: Acute (3) Acute kidney injury superimposed on chronic kidney disease: Patient is being followed by nephrology Status: Acute (4) Chronic respiratory failure with hypoxia and hypercapnia: Management as per the per the primary Status: Acute Additional A&P Information Other problems are Possible urosepsis Morbid obesity Hypoventilation syndrome Chronic anemia History of cardiac arrest Venous stasis Essential benign hypertension, currently normotensive Type 2 diabetes Dyslipidemia I will go ahead and do an echocardiogram, to evaluate the LV function and rule out any other pathology. Based on the patient's clinical progress and the results of the above, further recommendations will be made. Thank you for the opportunity to evaluate this patient and make these recommendations Consult Attestations Medical Necessity Statement: Patient requires continued hospital stay for close monitoring and further management Coding Level of Care Code Acute Director Of Graduate Admissions for [facility] Diagnoses NSTEMI (non-ST elevated myocardial infarction) I21.4 Acute on chronic diastolic (congestive) heart failure I50.33 Acute kidney injury superimposed on chronic kidney disease N17.9; N18.9 Chronic respiratory failure with hypoxia and hypercapnia J96.11; J96.12
[2020-10-04] MEDS: FUROsemide 10 mg/mL SDV 10mL 80 MG IVP (18:55)
--- NOTE | 2020-10-04 19:29 | ECG_ITS ---
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 Measurements Intervals [place] Rate: 84 P: 45 [place]: 178 QRS: 125 QRSD: 93 T: 22 QT: 369 QTc: 438 Interpretive Statements SINUS RHYTHM WITH FREQUENT VENTRICULAR PREMATURE COMPLEXES POSSIBLE RIGHT VENTRICULAR HYPERTROPHY [SOME/ALL OF: PROMINENT R IN V1, LATE TRANSITION, RAD, JEROME, SSS] Lead V3 is missing ANTEROSEPTAL MYOCARDIAL INFARCTION [40+ ms Q WAVE IN V1-V4], PROBABLY OLD WARNING: DATA QUALITY MAY AFFECT INTERPRETATION Compared to ECG 10/04/2020 15:26:45 Ventricular premature complex(es) now present Myocardial infarct finding still present Electronically Signed On 10-05-2020 23:55:51 BRANCH ASSOCIATE by Shirin Kendrick M.D. [email or web address]
[2020-10-04 19:52] LABS: Troponin 5 6HR 430.3 ng/L (0-15); Troponin 5 6HR Delta 51.3 ng/L (0-12)
--- NOTE | 2020-10-04 19:53 | PC.RESP ---
Pulmonary Rehab information sent to patient.
[2020-10-04] MEDS: cefTRIAXone 2,000 MG in sodium chloride 0.9% (plus) 50 ML 100 MG IV (20:29)
[2020-10-04] MEDS: sennosides 8.6 mg Tablet 17.2 MG PO (20:30)
[2020-10-04] MEDS: atorvastatin 40 mg Tablet 80 MG PO (20:30)
[2020-10-04] MEDS: OLANZapine 5 mg TABLET 2.5 MG PO (20:31)
[2020-10-04] MEDS: tamsulosin 0.4 mg Capsule PO (20:31)
[2020-10-04] MEDS: hyDRALAzine 50 mg Tablet 75 MG PO (20:31)
--- NOTE | 2020-10-04 20:47 | PC.NURSE ---
Med Reconciliation reviewed Pt recent Discharge list from [facility] rehab dated 10/02/20 is reviewed and edited per pt's discharge order provided. med reconciliation renewed. Doctor notified via voalte phone to review current med rec entered.
[2020-10-04] MEDS: clopidogrel 300 mg Tablet PO (21:05)
[2020-10-04] MEDS: morphine 4 mg/mL SDV 1 mL 2 MG IVP (21:19)
--- NOTE | 2020-10-04 23:55 | PC.NURSE ---
PT IS RESTING IN BED. PT C/O 10/10 PAIN IN HIS GROIN. RN CHANGE NURSE GAVE MORPHINE IV PUSH. PAIN IS CURRENTLY AT A 5/10. WILL CONTINUE TO MONITOR.
[2020-10-05] VITALS (15 sets, daily range): BP systolic 124–194; BP diastolic 68–95; PULSE 69–85; RESP 16–30; TEMP 36.6–37.1; O2SAT 92–96
[2020-10-05 00:42] LABS: Partial Thromboplastin Time 42.9 SECONDS (23.9-36.7)
[2020-10-05 00:57] LABS: NT Pro B Type Natriuretic Pept 24823 pg/mL (0-125); Procalcitonin 0.39 ng/mL (0-0.5)
[2020-10-05] MEDS: heparin 5,000 unit/mL INJ 1 mL IV ×2 (01:11→20:44)
[2020-10-05] MEDS: heparin drip 25,000 UNIT/500 ML PREMIX 117.2 UNIT IV (04:50)
--- NOTE | 2020-10-05 05:00 | USCV_ITS ---
Akil Velasco Age: 50 Gender: M : 1970 Exam Date: 10/05/2020 06:58 Ordering Phys: Rodney Alvarado MD Technologist: Pete Parker [place] [facility] [place]: NSTEMI, CHF BP: 148 / 90 HR: 70 Rhythm: Sinus Technical Quality: Adequate MEASUREMENTS (Male / Female) Normal Values 2D ECHO LV Diastolic Diameter PLAX 5.1 cm 4.2 - 5.9 / 3.9 - 5.3 cm LV Systolic Diameter PLAX 3.1 cm IVS Diastolic Thickness 1.8 cm 0.6 - 1.0 / 0.6 - 0.9 cm IVS Systolic Thickness 1.8 cm LVPW Diastolic Thickness 1.7 cm 0.6 - 1.0 / 0.6 - 0.9 cm LVPW Systolic Thickness 2.0 cm LV Ejection Fraction 2D Teich 70.3 % LV Ejection Fraction MOD 2C 47.7 % LV Ejection Fraction 2C AL 47.6 % LA Diameter 5.2 cm LA Width 5.3 cm LA Height 6.3 cm RA Width 5.1 cm RA Height 5.9 cm M-MODE LV Diastolic Diameter MM 5.2 cm 4.2 - 5.9 / 3.9 - 5.3 cm LV Systolic Diameter MM 3.0 cm LV Ejection Fraction MM Teich 73.5 % IVS Diastolic Thickness MM 2.0 cm 0.6 - 1.0 / 0.6 - 0.9 cm IVS Systolic Thickness MM 2.2 cm LVPW Diastolic Thickness MM 1.8 cm 0.6 - 1.0 / 0.6 - 0.9 cm LVPW Systolic Thickness MM 3.0 cm RV Diastolic Diameter MM 3.3 cm Aortic Annulus Diameter 3.6 cm LA Ao Ratio MM 1.4 MV E Point Septal Separation 0.9 cm FINDINGS Left Ventricle Normal left ventricular cavity size. Severe concentric left ventricular hypertrophy. Normal left ventricular systolic function. Left ventricular ejection fraction is estimated at 60 %. No regional wall motion abnormalities. Flattened septum in systole consistent with right ventricle pressure overload. Right Ventricle Mildly dilated right ventricle with mildly decreased right ventricular function. Right Atrium Right atrium not well visualized. Left Atrium Moderately increased left atrial size. Mitral Valve Moderately thickened mitral valve. Aortic Valve Thickened aortic valve. Tricuspid Valve Structurally normal tricuspid valve. Pulmonic Valve Structurally normal pulmonic valve. Pericardium No pericardial effusion. Aorta Normal size aortic root and proximal ascending aorta. Dilated inferior vena cava. CONCLUSIONS 1. This is a limited echocardiogram with ultrasound enhancing agent (Optison). 2. Normal left ventricular cavity size. Severe concentric left ventricular hypertrophy. Normal left ventricular systolic function. Left ventricular ejection fraction is estimated at 60 %. No regional wall motion abnormalities. Flattened septum in systole consistent with right ventricle pressure overload. 3. Thickened aortic and mitral valves. Rosie Ivey MD (Electronically Signed) Final Date: 05 October 2020 19:27 S
--- NOTE | 2020-10-05 05:19 | PC.NURSE ---
PT RESTING IN BED. PT DENIES PAIN AT THIS TIME. PT IS CURRENTLY ON BIPAP. WILL CONTINUE TO MONITOR.
[2020-10-05] MEDS: FUROsemide 10 mg/mL SDV 10mL 80 MG IVP ×2 (05:45→17:42)
[2020-10-05 07:46] LABS: Partial Thromboplastin Time 83.8 SECONDS (23.9-36.7)
[2020-10-05 07:50] LABS: Glucose Point of Care 100 mg/dL (70-110)
--- NOTE | 2020-10-05 08:27 | PM.PN ---
Subjective Subjective: Interval history: Patient reports doing better this morning. He is more alert. He denies chest pain and denies shortness of breath at rest. He is eating breakfast this morning. He knows he is in the hospital Vitals/I&O/Wt Last Vital Signs Temp 98.5 F 10/05/20 07:08 Pulse 73 10/05/20 08:18 Resp 22 H 10/05/20 07:08 BP 151/76 10/05/20 07:08 Pulse Ox 92 10/05/20 08:18 10/04/20 10/05/20 10/05/20 22:59 06:59 14:59 Intake Total 1568.675 / 1568.675 371.325 / 1940.000 Output Total 800 / 800 Balance 1568.675 / 1568.675 -428.675 / 1140.000 Weight last 48 hrs Weight 163.293 kg Weight 142.882 kg Physical Exam Narrative: EXAM NARRATIVE: Lungs with overall significant decreased air movement. Heart is regular. Lower extremity edema improved and now 1+. Urinary Catheter Management^: Melgar: Cath Placed During This Visit: yes Reason for Continuing Indwelling Catheter: Chronic Indwelling Urinary Catheter on Admission Urinary Catheter Date of Insertion: 09/27/20 Data : 10/04/20 13:04 10/04/20 13:04 Micro: Microbiology 10/04/20 13:44 Blood Culture - Preliminary Blood SPECIMEN COLLECTED 10/04/20 13:13 Blood Culture - Preliminary Blood SPECIMEN COLLECTED A&P Assessment and plan (1) Acute respiratory failure with hypoxia and hypercapnia: Status: Acute (2) Physical deconditioning: Status: Acute (3) Acute exacerbation of CHF (congestive heart failure): Status: Acute (4) Renal cell carcinoma: Status: Acute Qualifiers: Laterality: unspecified laterality Qualified Code(s): C64.9 - Malignant neoplasm of unspecified kidney, except renal pelvis (5) Non-ST elevation VA (NSTEMI): Status: Acute (6) Anasarca: Status: Acute (7) Morbid obesity with BMI of 40.0-44.9, adult: Status: Acute (8) Diabetes mellitus type 2 in obese: Status: Acute (9) Obesity hypoventilation syndrome: Status: Acute (10) Obstructive sleep apnea: Noncompliant with trilogy Status: Acute (11) Chronic kidney disease: Status: Acute (12) Urinary tract infection: Status: Acute (13) Toxic metabolic encephalopathy: Status: Acute Additional A&P Information PLAN: Continue current monitoring and treatment including aggressive diuresis. Further cardiac evaluation with coronary angiogram can be tricky given patient's kidney disease. Awaiting echocardiogram and depending on findings further evaluation with coronary angiogram can be decided. Attestations Medical Necessity Statement*: Patient with urinary tract infection, altered mental status and non-ST elevation VA requires close inpatient monitoring and treatment. Coding Level of Care Code Acute Field Agronomist for g Fwd Diagnoses Acute respiratory failure with hypoxia and hypercapnia J96.01; J96.02 Physical deconditioning R53.81 Acute exacerbation of CHF (congestive heart failure) I50.9 Renal cell carcinoma C64.9 Laterality: unspecified laterality Non-ST elevation VA (NSTEMI) I21.4 Anasarca R60.1 Morbid obesity with BMI of 40.0-44.9, adult E66.01; Z68.41 Diabetes mellitus type 2 in obese E11.69; E66.9 Obesity hypoventilation syndrome E66.2 Obstructive sleep apnea G47.33 Chronic kidney disease N18.9 Urinary tract infection N39.0 Toxic metabolic encephalopathy G92
[2020-10-05] MEDS: insulin glargine 100 units/1 mL 15 UNIT SUBCUT (09:09)
[2020-10-05] MEDS: aspirin 81 mg EC Tablet PO (09:11)
[2020-10-05] MEDS: isosorbide mononitrate ER 30 mg Tablet PO (09:11)
[2020-10-05] MEDS: sevelamer 800 mg Tablet PO ×2 (09:12→17:43)
[2020-10-05] MEDS: venlafaxine ER (24HR) 150 mg Capsule PO (09:12)
[2020-10-05] MEDS: famotidine 20 mg Tablet PO ×2 (09:12→17:43)
[2020-10-05] MEDS: hyDRALAzine 50 mg Tablet 75 MG PO ×3 (09:12→20:40)
[2020-10-05] MEDS: predniSONE 5 mg Tablet PO (09:13)
[2020-10-05] MEDS: gabapentin 300 mg Capsule PO ×2 (09:13→17:43)
[2020-10-05] MEDS: carvedilol 25 mg Tablet PO ×2 (09:13→20:41)
[2020-10-05] MEDS: losartan 50 mg Tablet PO (09:13)
[2020-10-05] MEDS: clopidogrel 75 mg Tablet PO (09:14)
[2020-10-05 10:12] LABS: Anion Gap 14.6 (5-19); Blood Urea Nitrogen 66 mg/dL (6-20); Calcium 8.7 mg/dL (8.5-10.5); Carbon Dioxide 26 mmol/L (22-29); Chloride 101 mmol/L (98-107); Glomerular Filtration Rate 14.7 mL/min (90-130); Glucose 100 mg/dL (65-115); Osmolality Calculated 301 mOsm/kg (285-295); Potassium 5.6 mmol/L (3.5-5.1); Sodium 136 mmol/L (136-145)
[2020-10-05 11:11] LABS: Glucose Point of Care 105 mg/dL (70-110)
[2020-10-05] MEDS: perflutren protein-a microsphr 0.22 mg/mL SDV 3 mL IV (13:58)
[2020-10-05 16:30] LABS: Glucose Point of Care 119 mg/dL (70-110)
--- NOTE | 2020-10-05 16:33 | PC.NURSE ---
FALL: AT 1300 PT'S CALL LIGHT RANG AT NURSES'S STATION.DAUGHTER SAID PT HAD FALLEN.WHEN STAFF ARRIVED ,PT WAS SITTING ON FLOOR.BOTH STATE HE HAD BEEN ATTEMPTING TO TRANSFER FROM THE CHAIR TO THE BED,HIS FEET SLIPPED AND HE SLID TO FLOOR.PT HAD NONSLIP SOCKS ON AND THE BED WAS LOCKED AND IN LOW POSITION .PT DID NOT SUSTAIN INJURY.BP 123/60;HR77;RESP20;O2 SAT 93 % ON 5 L O2 PER NC.ASSISTED UP AND TO BED W/[address] HUGHES NOTIFIED.NO ORDERS RECEIVED.INSTRUCTED PT TO CALL STAFF IF MUST GET UP..AND ALWAYS HAVE STAFF IN ATTENDANCE FOR TRANSFERS.PT VERB UNDERSTANDING OF INSTRUCTIONS.PT HAS SINCE BEEN TRANSFERRED TO ROOM CLOSER TO DESK DUE TO BIPAP AND POTENTIAL FOR FALLS.
--- NOTE | 2020-10-05 18:51 | P.PN_ITS ---
Subjective Subjective: Interval history: He is back to baseline mentation. No events on telemetry. Medications: Reviewed: Yes Vitals/I&O/Wt Last Vital Signs Temp 98.7 F 10/05/20 15:00 Pulse 71 10/05/20 15:52 Resp 19 H 10/05/20 15:00 BP 144/73 10/05/20 15:00 Pulse Ox 94 10/05/20 15:52 10/05/20 10/05/20 10/05/20 06:59 14:59 22:59 Intake Total 371.325 / 1940.000 240 / 240 480 / 720 Output Total 800 / 800 900 / 900 Balance -428.675 / 1140.000 240 / 240 -420 / -180 Weight last 48 hrs Weight 360 lb Weight 315 lb Physical Exam 2 Narrative: EXAM NARRATIVE: Gen: morbidly obese man lying in bed in NAD, currently on ~4 L of home oxygen HEENT: PEERL, EOMI Neck: Short thick neck, tough to appreciate JVD RS: decreased air entry bilaterally CVS: S1, S2, No murmur, rub or gallop appreciated. PA: obese, firm, NT, No abdominal wall edema noted. Ext: 3+ edema extending above knees, No cyanosis Urinary Catheter Management^: Melgar: Cath Placed During This Visit: yes Reason for Continuing Indwelling Catheter: Chronic Indwelling Urinary Catheter on Admission Urinary Catheter Date of Insertion: 09/27/20 Data : 10/04/20 13:04 10/05/20 09:44 Micro: Microbiology 10/04/20 13:44 Blood Culture - Preliminary Blood NEGATIVE TO DATE 10/04/20 13:13 Blood Culture - Preliminary Blood NEGATIVE TO DATE A&P Assessment and plan (1) Acute respiratory failure with hypoxia and hypercapnia: Status: Acute (2) Acute exacerbation of CHF (congestive heart failure): HFpEF and mild RV dysfunction. -500 ml so far, currently on lasix 80 mg IV Q12h and add metolazone. -I/O charting and daily weight. Status: Acute Qualifiers: Heart failure type: diastolic Qualified Code(s): I50.33 - Acute on chronic diastolic (congestive) heart failure (3) NSTEMI (non-ST elevated myocardial infarction): I am not convinced we are dealing with Type 1 NSTEMI here. -Patient was hypoxic at home with oxygen saturation in high 70's and in low 80's in ER and is currently decompensated. -May continue to treat medically for now for type 1 NSTEMI with ASA, plavix, heparin gtt and beta jag for now. -No CP as per patient. -Not a good candidate for [facility] at this point. He is CP free and stable. Status: Acute (4) Acute kidney injury superimposed on chronic kidney disease: Hold losartan for now. Status: Acute (5) Obstructive sleep apnea: Status: Acute (6) Diabetes mellitus type 2 in obese: Status: Acute Additional A&P Information Hypertenion Anemia Hyperkalemia UTI Attestations Medical Necessity Statement*: Needs hospital stay for CHF and NSTEMI Time Spent in Patient Care: Greater than 35 minutes (>than 50% of time spent in counselling and/or direct pt care on unit) . Coding Level of Care Code Acute Ship Manager for Patricia Reid Diagnoses Acute respiratory failure with hypoxia and hypercapnia J96.01; J96.02 Acute exacerbation of CHF (congestive heart failure) I50.33 Heart failure type: diastolic NSTEMI (non-ST elevated myocardial infarction) I21.4 Acute kidney injury superimposed on chronic kidney disease N17.9; N18.9 Obstructive sleep apnea G47.33 Diabetes mellitus type 2 in obese E11.69; E66.9
--- NOTE | 2020-10-05 19:43 | PC.NURSE ---
titrated heparin gtt on SEP to reflect current rate of 38 ml/hr
[2020-10-05 20:08] LABS: Partial Thromboplastin Time 43.5 SECONDS (23.9-36.7)
[2020-10-05 20:09] LABS: Glucose Point of Care 119 mg/dL (70-110)
[2020-10-05] MEDS: OLANZapine 5 mg TABLET 2.5 MG PO (20:39)
[2020-10-05] MEDS: metOLazone 5 MG Tablet PO (20:40)
[2020-10-05] MEDS: tamsulosin 0.4 mg Capsule PO (20:40)
[2020-10-05] MEDS: atorvastatin 40 mg Tablet 80 MG PO (20:40)
[2020-10-05] MEDS: sennosides 8.6 mg Tablet 17.2 MG PO (20:41)
[2020-10-05] MEDS: cefTRIAXone 2,000 MG in sodium chloride 0.9% (plus) 50 ML 100 MG IV (20:42)
[2020-10-05] MEDS: heparin drip 25,000 UNIT/500 ML PREMIX 43 UNIT IV (20:47)
[2020-10-06] VITALS (17 sets, daily range): BP systolic 161–192; BP diastolic 83–98; PULSE 70–91; RESP 16–32; TEMP 36.6; O2SAT 90–95
[2020-10-06] MEDS: labetalol 5 mg/mL SDV 20mL 10 MG IVP ×2 (01:05→05:10)
[2020-10-06] MEDS: morphine 4 mg/mL SDV 1 mL 2 MG IVP (01:45)
[2020-10-06 03:39] LABS: Platelet Count 236 10^3/cmm (130-400)
[2020-10-06 04:03] LABS: Partial Thromboplastin Time 70.6 SECONDS (23.9-36.7)
[2020-10-06] MEDS: FUROsemide 10 mg/mL SDV 10mL 80 MG IVP ×2 (05:43→18:12)
[2020-10-06 06:45] LABS: Glucose Point of Care 91 mg/dL (70-110)
[2020-10-06] MEDS: aspirin 81 mg EC Tablet PO (08:26)
[2020-10-06] MEDS: gabapentin 300 mg Capsule PO ×2 (08:26→18:11)
[2020-10-06] MEDS: sevelamer 800 mg Tablet PO ×2 (08:26→18:11)
[2020-10-06] MEDS: clopidogrel 75 mg Tablet PO (08:26)
[2020-10-06] MEDS: hyDRALAzine 50 mg Tablet 75 MG PO ×3 (08:26→20:26)
[2020-10-06] MEDS: famotidine 20 mg Tablet PO ×2 (08:26→18:11)
[2020-10-06] MEDS: metOLazone 5 MG Tablet PO (08:27)
[2020-10-06] MEDS: venlafaxine ER (24HR) 150 mg Capsule PO (08:27)
[2020-10-06] MEDS: predniSONE 5 mg Tablet PO (08:27)
[2020-10-06] MEDS: isosorbide mononitrate ER 30 mg Tablet PO ×3 (08:27→12:07)
[2020-10-06] MEDS: carvedilol 25 mg Tablet PO ×2 (08:31→20:27)
[2020-10-06] MEDS: insulin glargine 100 units/1 mL 15 UNIT SUBCUT (08:31)
[2020-10-06 09:55] LABS: Basophils # 0.1 10^3/uL (0.0-0.1); Basophils % 0.9 %; Eosinophils # 0.3 10^3/uL (0.0-0.8); Eosinophils % 3.8 %; Hematocrit 28.6 % (42.0-52.0); Hemoglobin 8.3 g/dL (11.7-16.6); Lymphocytes % 10.6 %; Mean Corpuscular Hemoglobin 26.6 pg (28.0-34.0); Mean Corpuscular Volume 91.7 fL (80-94); Mean Platelet Volume 10.2 fL (7.4-10.4); Monocytes # 0.8 10^3/uL (0.2-0.9); Monocytes % 9.3 %; Neutrophils # 6.56 10^3/uL (1.8-7.7); Neutrophils % 72.5 %; Nucleated Red Blood Cells % 0 %; Platelet Count 237 10^3/cmm (130-400); Red Blood Count 3.12 10^6/uL (4.1-5.3); Red Cell Distribution Width 15.2 % (12.1-15.1)
--- NOTE | 2020-10-06 10:11 | PC.OT ---
OT TREATMENT ATTEMPTED TWICE THIS A.M. 1ST ATTEMPT: SLEEPING SOUNDLY. 2ND ATTEMPT: AWAKENS BUT UNABLE TO MAINTAIN ALERTNESS. REPORTS THAT HE HAD MORPHINE EARLIER. O2 SATS: 92%, HR: 76
[2020-10-06 10:14] LABS: Alanine Aminotransferase < 5 U/L (0-41); Alkaline Phosphatase 111 IU/L (40-130); Anion Gap 14.1 (5-19); Aspartate Amino Transferase 14 U/L (0-40); Blood Urea Nitrogen 67 mg/dL (6-20); Calcium 8.7 mg/dL (8.5-10.5); Carbon Dioxide 27 mmol/L (22-29); Chloride 102 mmol/L (98-107); Globulin 3.4 g/dL (1.3-4.6); Glomerular Filtration Rate 13.9 mL/min (90-130); Glucose 108 mg/dL (65-115); Magnesium 1.8 mg/dL (1.7-2.3); Osmolality Calculated 306 mOsm/kg (285-295); Potassium 5.1 mmol/L (3.5-5.1); Sodium 138 mmol/L (136-145); Total Bilirubin 0.2 mg/dL (0.15-1.2); Total Protein 6.4 g/dL (6.6-8.7)
[2020-10-06 10:17] LABS: Partial Thromboplastin Time 72.1 SECONDS (23.9-36.7)
[2020-10-06 10:45] LABS: Glucose Point of Care 120 mg/dL (70-110)
--- NOTE | 2020-10-06 10:49 | P.PN_ITS ---
Subjective Subjective: Interval history: Patient is somnolent this morning but otherwise denies shortness of breath or chest pain. Denies abdominal pain. Creatinine is trending up but appears to be at baseline. Hyperkalemia improved. Medications: Reviewed: Yes Vitals/I&O/Wt Last Vital Signs Temp 97.8 F 10/06/20 07:59 Pulse 74 10/06/20 07:59 Resp 18 10/06/20 07:59 BP 161/86 10/06/20 07:59 Pulse Ox 93 10/06/20 07:59 10/05/20 10/06/20 10/06/20 22:59 06:59 14:59 Intake Total 1957.533 / 2197.533 150 / 2347.533 480 / 480 Output Total 1900 / 1900 500 / 2400 Balance 57.533 / 297.533 -350 / -52.467 480 / 480 Weight last 48 hrs Weight 163.293 kg Weight 142.882 kg Physical Exam Narrative: EXAM NARRATIVE: Lungs with overall significant decreased air movement. Heart is regular. Lower extremity edema 1+. Urinary Catheter Management^: Melgar: Cath Placed During This Visit: yes Reason for Continuing Indwelling Catheter: Chronic Indwelling Urinary Catheter on Admission Urinary Catheter Date of Insertion: 09/27/20 Data : 10/06/20 09:35 10/06/20 09:35 Micro: Microbiology 10/04/20 13:44 Urine Culture - Preliminary Urine,Clean Catch 10/04/20 13:44 Blood Culture - Preliminary Blood NEGATIVE TO DATE 10/04/20 13:13 Blood Culture - Preliminary Blood NEGATIVE TO DATE A&P Assessment and plan (1) Acute respiratory failure with hypoxia and hypercapnia: Status: Acute (2) Physical deconditioning: Status: Acute (3) Acute exacerbation of CHF (congestive heart failure): Status: Acute Qualifiers: Heart failure type: diastolic Qualified Code(s): I50.33 - Acute on c hronic diastolic (congestive) heart failure (4) Renal cell carcinoma: Status: Acute Qualifiers: Laterality: unspecified laterality Qualified Code(s): C64.9 - Malignant neoplasm of unspecified kidney, except renal pelvis (5) Non-ST elevation MD (NSTEMI): Appears to be type II. Status: Acute (6) Anasarca: Status: Acute (7) Morbid obesity with BMI of 40.0-44.9, adult: Status: Acute (8) Diabetes mellitus type 2 in obese: Status: Acute (9) Obesity hypoventilation syndrome: Status: Acute (10) Obstructive sleep apnea: Noncompliant with trilogy Status: Acute (11) Chronic kidney disease: Status: Acute (12) Urinary tract infection: Status: Acute (13) Toxic metabolic encephalopathy: Improved Status: Acute Additional A&P Information PLAN: Continue current monitoring and treatment. Awaiting echocardiogram. Add Imdur patient takes at home and increase Flomax to 0.[address] patient takes at home. This should improve patient's blood pressure. Dr. Ivey added metolazone. Appreciate cardiology help Awaiting culture results. Attestations Medical Necessity Statement*: Patient with heart failure and MD requires close inpatient monitoring and treatment until deemed safe for discharge. Coding Level of Care Code Acute Patternmaker Grader for g Fwd Diagnoses Acute respiratory failure with hypoxia and hypercapnia J96.01; J96.02 Physical deconditioning R53.81 Acute exacerbation of CHF (congestive heart failure) I50.33 Heart failure type: diastolic Renal cell carcinoma C64.9 Laterality: unspecified laterality Non-ST elevation MD (NSTEMI) I21.4 Anasarca R60.1 Morbid obesity with BMI of 40.0-44.9, adult E66.01; Z68.41 Diabetes mellitus type 2 in obese E11.69; E66.9 Obesity hypoventilation syndrome E66.2 Obstructive sleep apnea G47.33 Chronic kidney disease N18.9 Urinary tract infection N39.0 Toxic metabolic encephalopathy G92
[2020-10-06] MEDS: isosorbide mononitrate ER 60 mg Tablet PO (12:07)
[2020-10-06] MEDS: heparin drip 25,000 UNIT/500 ML PREMIX 43 UNIT IV (12:14)
--- NOTE | 2020-10-06 12:36 | PFTS_ITS ---
Date of Study:10/06/20 Date of Dictation: MECHANICS: Forced vital capacity (FVC) is reduced. Forced expiratory volume in one second (FEV1) is reduced. FEV1/FVC is normal. FLOW VOLUME LOOP: Narrow. LUNG VOLUMES: Not measured DIFFUSING CAPACITY FOR CARBON MONOXIDE: Not measured INTERPRETATION: The prebronchodilator spirometry is consistent with moderately severe restrictive ventilatory defect. MTDD
[2020-10-06 17:01] LABS: Glucose Point of Care 160 mg/dL (70-110)
[2020-10-06 17:55] LABS: Partial Thromboplastin Time 65.6 SECONDS (23.9-36.7)
[2020-10-06] MEDS: lanolin oint 7 gm 1 APPLIC TOPICAL (18:12)
[2020-10-06 19:57] LABS: Glucose Point of Care 145 mg/dL (70-110)
--- NOTE | 2020-10-06 20:16 | P.PN_ITS ---
Subjective Subjective: Interval history: He is back to baseline mentation. His oxygen saturation has improved and is mostly in 90's. No events on telemetry. Medications: Reviewed: Yes Vitals/I&O/Wt Last Vital Signs Temp 98 F 10/06/20 19:40 Pulse 83 10/06/20 19:40 Resp 17 10/06/20 19:40 BP 174/83 10/06/20 19:40 Pulse Ox 90 10/06/20 19:40 10/06/20 10/06/20 10/06/20 06:59 14:59 22:59 Intake Total 150 / 2347.533 1280 / 1280 728.683 / 2008.683 Output Total 500 / 2400 1440 / 1440 700 / 2140 Balance -350 / -52.467 -160 / -160 28.683 / -131.317 Physical Exam Narrative: EXAM NARRATIVE: Gen: morbidly obese man lying in bed in [facility], currently on ~4 L of home oxygen HEENT: PEERL, EOMI Neck: Short thick neck, tough to appreciate JVD RS: decreased air entry bilaterally CVS: S1, S2, No murmur, rub or gallop appreciated. PA: obese, firm, NT, No abdominal wall edema noted. Ext: 2-3+ edema extending above knees, No cyanosis Urinary Catheter Management^: Melgar: Cath Placed During This Visit: yes Reason for Continuing Indwelling Catheter: Acute Urinary Retention or Obstruction Urinary Catheter Date of Insertion: 09/27/20 Data : 10/06/20 09:35 10/06/20 09:35 Micro: Microbiology 10/04/20 13:44 Urine Culture - Preliminary Urine,Clean Catch 10/04/20 13:44 Blood Culture - Preliminary Blood NEGATIVE TO DATE A&P Assessment and plan (1) Acute respiratory failure with hypoxia and hypercapnia: Status: Acute (2) Acute exacerbation of CHF (congestive heart failure): HFpEF and mild RV dysfunction. - currently on lasix 80 mg IV Q12h and metolazone. -I/O charting and daily weight. Status: Acute Qualifiers: Heart failure type: diastolic Qualified Code(s): I50.33 - Acute on chronic diastolic (congestive) heart failure (3) NSTEMI (non-ST elevated myocardial infarction): I am not convinced we are dealing with Type 1 NSTEMI here. -Patient was hypoxic at home with oxygen saturation in high 70's and in low 80's in ER and is currently decompensated. -May continue to treat medically for now for type 1 NSTEMI with ASA, plavix, statin and beta jag for now. -D/C heparin gtt -No CP as per patient. -Not a good candidate for [facility] at this point given high risk of KINJAL and subsequent need for dialysis. He is CP free and stable. Status: Acute (4) Acute kidney injury superimposed on chronic kidney disease: Hold losartan for now. Status: Acute (5) Obstructive sleep apnea: Status: Acute (6) Diabetes mellitus type 2 in obese: Status: Acute Additional A&P Information Hypertenion Anemia Hyperkalemia UTI Attestations Medical Necessity Statement*: Needs hospital stay for CHF and NSTEMI Time Spent in Patient Care: 16 - 35 minutes (>than 50% of time spent in counselling and/or direct pt care on unit) . Coding Level of Care Code Acute Animal Control Licensing Worker for Patricia Reid Diagnoses Acute respiratory failure with hypoxia and hypercapnia J96.01; J96.02 Acute exacerbation of CHF (congestive heart failure) I50.33 Heart failure type: diastolic NSTEMI (non-ST elevated myocardial infarction) I21.4 Acute kidney injury superimposed on chronic kidney disease N17.9; N18.9 Obstructive sleep apnea G47.33 Diabetes mellitus type 2 in obese E11.69; E66.9
[2020-10-06] MEDS: cefTRIAXone 2,000 MG in sodium chloride 0.9% (plus) 50 ML 100 MG IV (20:22)
[2020-10-06] MEDS: OLANZapine 5 mg TABLET 2.5 MG PO (20:26)
[2020-10-06] MEDS: atorvastatin 40 mg Tablet 80 MG PO (20:26)
[2020-10-06] MEDS: tamsulosin 0.4 mg Capsule 0.8 MG PO (20:26)
[2020-10-06] MEDS: sennosides 8.6 mg Tablet 17.2 MG PO (20:27)
[2020-10-06] MEDS: morphine 4 mg/mL SDV 1 mL 1 MG IVP (21:59)
[2020-10-07] VITALS (14 sets, daily range): BP systolic 158–176; BP diastolic 82–88; PULSE 68–91; RESP 11–32; TEMP 36.6–37.6; O2SAT 90–97
[2020-10-07 04:46] LABS: Basophils # 0.1 10^3/uL (0.0-0.1); Basophils % 0.9 %; Eosinophils # 0.2 10^3/uL (0.0-0.8); Eosinophils % 2.8 %; Hemoglobin 8.1 g/dL (11.7-16.6); Lymphocytes # 0.7 10^3/uL (0.8-4.8); Lymphocytes % 8.9 %; Mean Corpuscular HGB Conc 27.9 g/dL (30.0-36.0); Mean Corpuscular Hemoglobin 27.1 pg (28.0-34.0); Mean Platelet Volume 10.5 fL (7.4-10.4); Monocytes # 0.7 10^3/uL (0.2-0.9); Monocytes % 9.3 %; Neutrophils # 5.89 10^3/uL (1.8-7.7); Nucleated Red Blood Cells % 0 %; Platelet Count 233 10^3/cmm (130-400); Red Blood Count 2.99 10^6/uL (4.1-5.3); Red Cell Distribution Width 15.2 % (12.1-15.1); White Blood Count 7.8 10^3/uL (4.0-10.0)
[2020-10-07 05:08] LABS: Alanine Aminotransferase 8 U/L (0-41); Albumin Level 2.7 g/dL (3.5-5.2); Alkaline Phosphatase 106 IU/L (40-130); Blood Urea Nitrogen 68 mg/dL (6-20); Calcium 8.5 mg/dL (8.5-10.5); Carbon Dioxide 24 mmol/L (22-29); Chloride 104 mmol/L (98-107); Globulin 3.6 g/dL (1.3-4.6); Glomerular Filtration Rate 13.9 mL/min (90-130); Glucose 101 mg/dL (65-115); Magnesium 1.9 mg/dL (1.7-2.3); Osmolality Calculated 308 mOsm/kg (285-295); Sodium 139 mmol/L (136-145); Total Bilirubin 0.2 mg/dL (0.15-1.2); Total Protein 6.3 g/dL (6.6-8.7)
[2020-10-07 05:09] LABS: Anion Gap 16.2 (5-19); Potassium 5.2 mmol/L (3.5-5.1)
[2020-10-07 05:10] LABS: Aspartate Amino Transferase 11 U/L (0-40)
[2020-10-07 05:24] LABS: Slide Review Slide Review Perform
[2020-10-07] MEDS: FUROsemide 10 mg/mL SDV 10mL 80 MG IVP (06:02)
[2020-10-07 06:48] LABS: Glucose Point of Care 113 mg/dL (70-110)
[2020-10-07] MEDS: metOLazone 5 MG Tablet PO (08:56)
[2020-10-07] MEDS: predniSONE 5 mg Tablet PO (08:57)
[2020-10-07] MEDS: sevelamer 800 mg Tablet PO ×2 (08:57→17:16)
[2020-10-07] MEDS: venlafaxine ER (24HR) 150 mg Capsule PO (08:57)
[2020-10-07] MEDS: hyDRALAzine 50 mg Tablet 75 MG PO (08:57)
[2020-10-07] MEDS: isosorbide mononitrate ER 60 mg Tablet 120 MG PO (08:57)
[2020-10-07] MEDS: aspirin 81 mg EC Tablet PO (08:57)
[2020-10-07] MEDS: gabapentin 300 mg Capsule PO ×2 (08:58→17:16)
[2020-10-07] MEDS: clopidogrel 75 mg Tablet PO (08:58)
[2020-10-07] MEDS: docusate sodium 100 mg Capsule PO (08:58)
[2020-10-07] MEDS: famotidine 20 mg Tablet PO ×2 (08:58→17:16)
[2020-10-07] MEDS: carvedilol 25 mg Tablet PO ×2 (08:58→20:07)
[2020-10-07] MEDS: insulin glargine 100 units/1 mL 15 UNIT SUBCUT (09:03)
--- NOTE | 2020-10-07 09:53 | P.PN_ITS ---
Subjective Subjective: Interval history: Patient reports doing much better this morning. Denies any shortness of breath or chest pain. He ate all of his breakfast. Reports that he does not want to go back to shelter facility. Reports that he is able to get up and walk with a walker and is planning to go home. Based on PFTs patient does not have COPD. Medications: Reviewed: Yes Vitals/I&O/Wt Last Vital Signs Temp 98.2 F 10/07/20 07:16 Pulse 68 10/07/20 08:33 Resp 18 10/07/20 08:33 BP 161/88 10/07/20 07:16 Pulse Ox 95 10/07/20 08:33 10/06/20 10/07/20 10/07/20 22:59 06:59 14:59 Intake Total 1528.683 / 2808.683 100 / 2908.683 240 / 240 Output Total 1800 / 3240 1500 / 4740 Balance -271.317 / -431.317 -1400 / -1831.317 240 / 240 Physical Exam Narrative: EXAM NARRATIVE: Lungs with overall significant decreased air movement. Heart is regular. Lower extremity edema 1+. Urinary Catheter Management^: Melgar: Cath Placed During This Visit: yes Reason for Continuing Indwelling Catheter: Acute Urinary Retention or Obstruction Urinary Catheter Date of Insertion: 09/27/20 Data : 10/07/20 04:21 10/07/20 04:21 Micro: Microbiology 10/04/20 13:44 Urine Culture - Final Urine,Clean Catch A&P Assessment and plan (1) Acute respiratory failure with hypoxia and hypercapnia: Status: Acute (2) Physical deconditioning: Status: Acute (3) Acute exacerbation of CHF (congestive heart failure): Status: Acute Qualifiers: Heart failure type: diastolic Qualified Code(s): I50.33 - Acute on chronic diastolic (congestive) heart failure (4) Renal cell carcinoma: Status: Acute Qualifiers: Laterality: unspecified laterality Qualified Code(s): C64.9 - Malignant neoplasm of unspecified kidney, except renal pelvis (5) Non-ST elevation MD (NSTEMI): Appears to be type II. Status: Acute (6) Anasarca: Status: Acute (7) Morbid obesity with BMI of 40.0-44.9, adult: Status: Acute (8) Diabetes mellitus type 2 in obese: Status: Acute (9) Obesity hypoventilation syndrome: Status: Acute (10) Obstructive sleep apnea: Noncompliant with trilogy Status: Acute (11) Chronic kidney disease: Status: Acute (12) Urinary tract infection: Status: Acute (13) Toxic metabolic encephalopathy: Improved Status: Acute Additional A&P Information PLAN: Continue diuresis. Continue antibiotic. Physical therapy. Once patient's heart is optimized and if patient shows us that he can function we will be able to dismiss patient home. Patient will benefit from BiPAP and I will discuss this with case management. Attestations Medical Necessity Statement*: Patient with respite failure requires close inpatient monitoring and treatment until deemed safe for discharge. Coding Level of Care Code Acute Vice President Of Product Marketing for Patricia Reid Diagnoses Acute respiratory failure with hypoxia and hypercapnia J96.01; J96.02 Physical deconditioning R53.81 Acute exacerbation of CHF (congestive heart failure) I50.33 Heart failure type: diastolic Renal cell carcinoma C64.9 Laterality: unspecified laterality Non-ST elevation MD (NSTEMI) I21.4 Anasarca R60.1 Morbid obesity with BMI of 40.0-44.9, adult E66.01; Z68.41 Diabetes mellitus type 2 in obese E11.69; E66.9 Obesity hypoventilation syndrome E66.2 Obstructive sleep apnea G47.33 Chronic kidney disease N18.9 Urinary tract infection N39.0 Toxic metabolic encephalopathy G92
[2020-10-07 11:41] LABS: Glucose Point of Care 148 mg/dL (70-110)
--- NOTE | 2020-10-07 12:49 | P.PN_ITS ---
Subjective Subjective: Interval history: He is back to baseline mentation. His oxygen saturation has improved and is mostly in 90's. No events on telemetry. -1.8 L from yesterday. Medications: Reviewed: Yes Vitals/I&O/Wt Last Vital Signs Temp 98.2 F 10/07/20 11:30 Pulse 77 10/07/20 11:30 Resp 18 10/07/20 11:30 BP 161/88 10/07/20 11:30 Pulse Ox 93 10/07/20 11:30 10/06/20 10/07/20 10/07/20 22:59 06:59 14:59 Intake Total 1528.683 / 2808.683 100 / 2908.683 240 / 240 Output Total 1800 / 3240 1500 / 4740 1300 / 1300 Balance -271.317 / -431.317 -1400 / -1831.317 -1060 / -1060 Physical Exam Narrative: EXAM NARRATIVE: Gen: morbidly obese man lying in bed in NAD, currently on ~4 L of home oxygen HEENT: PEERL, EOMI Neck: Short thick neck, tough to appreciate JVD RS: decreased air entry bilaterally CVS: S1, S2, No murmur, rub or gallop appreciated. PA: obese, firm, NT, No abdominal wall edema noted. Ext: 2-3+ edema extending above knees, No cyanosis Urinary Catheter Management^: Melgar: Cath Placed During This Visit: yes Reason for Continuing Indwelling Catheter: Acute Urinary Retention or Obstruction Urinary Catheter Date of Insertion: 09/27/20 Data : 10/07/20 04:21 10/07/20 04:21 Micro: Microbiology 10/04/20 13:44 Urine Culture - Final Urine,Clean Catch A&P Assessment and plan (1) Acute respiratory failure with hypoxia and hypercapnia: Status: Acute (2) Acute exacerbation of CHF (congestive heart failure): HFpEF and mild RV dysfunction. -significantly overloaded. -increase lasix to 100 mg IV Q12h and continue metolazone. -I/O charting and daily weight. -Fluid restriction to 1500 ml Status: Acute Qualifiers: Heart failure type: diastolic Qualified Code(s): I50.33 - Acute on chronic diastolic (congestive) heart failure (3) NSTEMI (non-ST elevated myocardial infarction): I am not convinced we are dealing with Type 1 NSTEMI here. -Patient was hypoxic at home with oxygen saturation in high 70's and in low 80's in ER and is currently decompensated. -May continue to treat medically for now for type 1 NSTEMI with ASA, plavix, statin and beta jag for now. -D/C heparin gtt -No CP as per patient. -Not a good candidate for [facility] at this point given high risk of KINJAL and subsequent need for dialysis. He is CP free and stable. Status: Acute (4) Acute kidney injury superimposed on chronic kidney disease: Hold losartan for now. Status: Acute (5) Obstructive sleep apnea: Status: Acute (6) Diabetes mellitus type 2 in obese: Status: Acute Additional A&P Information Hypertenion Anemia Hyperkalemia UTI Severe SYED Attestations Medical Necessity Statement*: Needs hospital stay for CHF and NSTEMI Time Spent in Patient Care: 16 - 35 minutes (>than 50% of time spent in counselling and/or direct pt care on unit) . Coding Level of Care Code Acute Lockmaker for Patricia Reid Diagnoses Acute respiratory failure with hypoxia and hypercapnia J96.01; J96.02 Acute exacerbation of CHF (congestive heart failure) I50.33 Heart failure type: diastolic NSTEMI (non-ST elevated myocardial infarction) I21.4 Acute kidney injury superimposed on chronic kidney disease N17.9; N18.9 Obstructive sleep apnea G47.33 Diabetes mellitus type 2 in obese E11.69; E66.9
[2020-10-07] MEDS: hyDRALAzine 50 mg Tablet 100 MG PO ×2 (15:15→20:07)
[2020-10-07 16:44] LABS: Glucose Point of Care 143 mg/dL (70-110)
[2020-10-07] MEDS: FUROsemide 10 mg/mL SDV 10mL 100 MG IVP (18:12)
--- NOTE | 2020-10-07 19:48 | PC.NURSE ---
Patient's family member called asking if patient was a fall risk. She stated he is bragging to us about walking around the room by himself and he has trouble walking at home. Patient has been educated not to get up without assistance and bed alarm has been set.
[2020-10-07] MEDS: OLANZapine 5 mg TABLET 2.5 MG PO (20:07)
[2020-10-07] MEDS: atorvastatin 40 mg Tablet 80 MG PO (20:07)
[2020-10-07] MEDS: tamsulosin 0.4 mg Capsule 0.8 MG PO (20:07)
[2020-10-07] MEDS: sennosides 8.6 mg Tablet 17.2 MG PO (20:07)
[2020-10-07] MEDS: cefTRIAXone 2,000 MG in sodium chloride 0.9% (plus) 50 ML 100 MG IV (20:07)
[2020-10-07] MEDS: morphine 4 mg/mL SDV 1 mL 1 MG IVP (20:07)
--- NOTE | 2020-10-07 20:16 | PC.NURSE ---
Patient has been educated how to use call light and not to get up without assistance due to fall risk. Patient verbalized understanding and has call light within reach.
[2020-10-07 20:34] LABS: Glucose Point of Care 114 mg/dL (70-110)
--- NOTE | 2020-10-07 20:41 | PC.NURSE ---
When reassessing patient's pain, patient states, I'm just laying here so I don't really know.
[2020-10-08] VITALS (19 sets, daily range): BP systolic 146–188; BP diastolic 74–95; PULSE 65–88; RESP 14–23; TEMP 36.8–37.4; O2SAT 92–99
--- NOTE | 2020-10-08 01:30 | PC.NURSE ---
At this time, patient was asked if he is in any pain and stated, no.
--- NOTE | 2020-10-08 03:49 | PC.NURSE ---
Earlier in shift, patient's family stated to nurse and patient, he hasn't had a bath since Sunday, he needs to get one. the nurse asked the patient, is that okay with you? Patient states, I guess since it sounds like I'm going to be forced into it. Patient is able to walk with walker and standby assist, however getting patient up from a seated position required 2-3 assist.
[2020-10-08 04:58] LABS: Alanine Aminotransferase 8 U/L (0-41); Albumin Level 3.1 g/dL (3.5-5.2); Alkaline Phosphatase 109 IU/L (40-130); Anion Gap 14.9 (5-19); Aspartate Amino Transferase 9 U/L (0-40); Blood Urea Nitrogen 69 mg/dL (6-20); Calcium 8.9 mg/dL (8.5-10.5); Carbon Dioxide 30 mmol/L (22-29); Chloride 101 mmol/L (98-107); Globulin 3.6 g/dL (1.3-4.6); Glomerular Filtration Rate 13.9 mL/min (90-130); Glucose 118 mg/dL (65-115); Magnesium 1.7 mg/dL (1.7-2.3); Osmolality Calculated 313 mOsm/kg (285-295); Potassium 4.9 mmol/L (3.5-5.1); Sodium 141 mmol/L (136-145); Total Bilirubin 0.2 mg/dL (0.15-1.2); Total Protein 6.7 g/dL (6.6-8.7)
[2020-10-08 05:01] LABS: Basophils # 0.1 10^3/uL (0.0-0.1); Basophils % 0.7 %; Eosinophils # 0.2 10^3/uL (0.0-0.8); Eosinophils % 2.1 %; Hematocrit 27.4 % (42.0-52.0); Hemoglobin 8.2 g/dL (11.7-16.6); Lymphocytes # 0.8 10^3/uL (0.8-4.8); Lymphocytes % 8.6 %; Mean Corpuscular HGB Conc 29.9 g/dL (30.0-36.0); Mean Corpuscular Hemoglobin 27.2 pg (28.0-34.0); Mean Platelet Volume 10.6 fL (7.4-10.4); Monocytes # 0.8 10^3/uL (0.2-0.9); Monocytes % 8.7 %; Neutrophils # 7.03 10^3/uL (1.8-7.7); Neutrophils % 78.1 %; Nucleated Red Blood Cells % 0 %; Platelet Count 242 10^3/cmm (130-400); Red Blood Count 3.01 10^6/uL (4.1-5.3); Red Cell Distribution Width 15.3 % (12.1-15.1)
[2020-10-08] MEDS: FUROsemide 10 mg/mL SDV 10mL 100 MG IVP ×2 (05:20→18:40)
[2020-10-08] MEDS: labetalol 5 mg/mL SDV 20mL 10 MG IVP (05:24)
--- NOTE | 2020-10-08 05:28 | PC.NURSE ---
Patient's blood pressure is currently 180/95. PRN Labetalol given per order. Will reassess.
[2020-10-08 07:09] LABS: Glucose Point of Care 130 mg/dL (70-110)
[2020-10-08] MEDS: sevelamer 800 mg Tablet PO ×2 (07:55→17:58)
--- NOTE | 2020-10-08 08:28 | P.PN_ITS ---
Subjective Subjective: Interval history: This morning patient lays in his bed with oxygen removed. Denies any shortness of breath or chest pain. He diuresed really well of more than 4 L. He is laying flat and is not in any distress. His creatinine is stable. Medications: Reviewed: Yes Vitals/I&O/Wt Last Vital Signs Temp 99.3 F 10/08/20 03:56 Pulse 83 10/08/20 05:53 Resp 22 H 10/08/20 03:56 BP 155/84 10/08/20 06:15 Pulse Ox 95 10/08/20 04:20 10/07/20 10/08/20 10/08/20 22:59 06:59 14:59 Intake Total 410 / 890 200 / 1090 Output Total 1100 / 2400 2150 / 4550 Balance -690 / -1510 -1950 / -3460 Physical Exam Narrative: EXAM NARRATIVE: Lungs with overall significant decreased air movement. Heart is regular. Lower extremity edema trace to 1+. Urinary Catheter Management^: Melgar: Cath Placed During This Visit: yes Reason for Continuing Indwelling Catheter: Accurate Measurement of Urinary Output in Critically Ill Patients Urinary Catheter Date of Insertion: 09/27/20 Data : 10/08/20 04:04 10/08/20 04:04 Micro: Microbiology 10/04/20 13:44 Urine Culture - Final Urine,Clean Catch A&P Assessment and plan (1) Acute respiratory failure with hypoxia and hypercapnia: Status: Acute (2) Physical deconditioning: Status: Acute (3) Acute exacerbation of CHF (congestive heart failure): Status: Acute Qualifiers: Heart failure type: diastolic Qualified Code(s): I50.33 - Acute on chr onic diastolic (congestive) heart failure (4) Renal cell carcinoma: Status: Acute Qualifiers: Laterality: unspecified laterality Qualified Code(s): C64.9 - Malignant neoplasm of unspecified kidney, except renal pelvis (5) Non-ST elevation CO (NSTEMI): Appears to be type II. Status: Acute (6) Anasarca: Status: Acute (7) Morbid obesity with BMI of 40.0-44.9, adult: Status: Acute (8) Diabetes mellitus type 2 in obese: Status: Acute (9) Obesity hypoventilation syndrome: Status: Acute (10) Obstructive sleep apnea: Noncompliant with trilogy Status: Acute (11) Chronic kidney disease: Status: Acute (12) Urinary tract infection: Status: Acute (13) Toxic metabolic encephalopathy: Improved Status: Acute Additional A&P Information PLAN: Apparently patient is not qualifying for BiPAP despite sleep study performed previously. Discussed with Dr. Ivey who recommends to continue aggressive diuresis for 1 more day. Again discussed regarding importance of fluid restriction. Patient voiced understanding. Will restart patient's clonidine as blood pressure remains on the higher side but decrease it to 0.2 mg twice daily with plan to gradually wean off if blood pressure permits. Will hold and not continue amlodipine upon discharge as it exacerbates lower extremity edema. Discussed again with patient regarding placement in nursing facility but he absolutely refused. He wants to go home when ready to be discharged. Continue monitoring hemoglobin and platelets. We will continue ceftriaxone for now although urine culture did not grow anything. Attestations Medical Necessity Statement*: Patient with acute CHF exacerbation requires close inpatient monitoring and treatment till deemed safe for discharge. Time Spent in Patient Care: 16 - 35 minutes Coding Level of Care Code Acute Art Psychotherapist Or Therapist for [facility] Fwd Diagnoses Acute respiratory failure with hypoxia and hypercapnia J96.01; J96.02 Physical deconditioning R53.81 Acute exacerbation of CHF (congestive heart failure) I50.33 Heart failure type: diastolic Renal cell carcinoma C64.9 Laterality: unspecified laterality Non-ST elevation CO (NSTEMI) I21.4 Anasarca R60.1 Morbid obesity with BMI of 40.0-44.9, adult E66.01; Z68.41 Diabetes mellitus type 2 in obese E11.69; E66.9 Obesity hypoventilation syndrome E66.2 Obstructive sleep apnea G47.33 Chronic kidney disease N18.9 Urinary tract infection N39.0 Toxic metabolic encephalopathy G92
[2020-10-08] MEDS: aspirin 81 mg EC Tablet PO (09:13)
[2020-10-08] MEDS: hyDRALAzine 50 mg Tablet 100 MG PO ×3 (09:13→19:53)
[2020-10-08] MEDS: predniSONE 5 mg Tablet PO (09:14)
[2020-10-08] MEDS: isosorbide mononitrate ER 60 mg Tablet 120 MG PO (09:14)
[2020-10-08] MEDS: gabapentin 300 mg Capsule PO ×2 (09:15→17:58)
[2020-10-08] MEDS: famotidine 20 mg Tablet PO ×2 (09:15→17:58)
[2020-10-08] MEDS: clopidogrel 75 mg Tablet PO (09:15)
[2020-10-08] MEDS: cloNIDine 0.1 mg Tablet 0.2 MG PO ×2 (09:16→19:54)
[2020-10-08] MEDS: venlafaxine ER (24HR) 150 mg Capsule PO (09:16)
[2020-10-08] MEDS: metOLazone 5 MG Tablet PO (09:21)
[2020-10-08] MEDS: insulin glargine 100 units/1 mL 15 UNIT SUBCUT (09:41)
[2020-10-08] MEDS: carvedilol 25 mg Tablet PO ×2 (09:41→19:54)
[2020-10-08 11:29] LABS: Glucose Point of Care 139 mg/dL (70-110)
[2020-10-08 16:39] LABS: Glucose Point of Care 142 mg/dL (70-110)
--- NOTE | 2020-10-08 19:20 | PM.PN ---
Subjective Subjective: Interval history: He feels better today. He was seen sitting in his bed. Medications: Reviewed: Yes Vitals/I&O/Wt Last Vital Signs Temp 99.0 F 10/08/20 12:00 Pulse 82 10/08/20 14:00 Resp 14 10/08/20 12:00 BP 168/85 10/08/20 12:00 Pulse Ox 93 10/08/20 12:00 10/08/20 10/08/20 10/08/20 06:59 14:59 22:59 Intake Total 200 / 1090 480 / 480 340 / 820 Output Total 2150 / 4550 1450 / 1450 750 / 2200 Balance -1950 / -3460 -970 / -970 -410 / -1380 Physical Exam Narrative: EXAM NARRATIVE: Gen: morbidly obese man lying in bed in NAD, currently on ~4 L of home oxygen HEENT: PEERL, EOMI Neck: Short thick neck, tough to appreciate JVD RS: decreased air entry bilaterally CVS: S1, S2, No murmur, rub or gallop appreciated. PA: obese, firm, NT, No abdominal wall edema noted. Ext: 2-3+ edema extending above knees, No cyanosis Urinary Catheter Management^: Melgar: Cath Placed During This Visit: yes Reason for Continuing Indwelling Catheter: Chronic Indwelling Urinary Catheter on Admission Urinary Catheter Date of Insertion: 09/27/20 Data : 10/08/20 04:04 10/08/20 04:04 A&P Assessment and plan (1) Acute respiratory failure with hypoxia and hypercapnia: Status: Acute (2) Acute exacerbation of CHF (congestive heart failure): HFpEF and mild RV dysfunction. -significantly overloaded. -continue lasix to 100 mg IV Q12h and metolazone for another day. -I/O charting and daily weight. -Fluid restriction to 1500 ml Status: Acute Qualifiers: Heart failure type: diastolic Qualified Code(s): I50.33 - Acute on chronic diastolic (congestive) heart failure (3) NSTEMI (non-ST elevated myocardial infarction): I am not convinced we are dealing with Type 1 NSTEMI here. -Patient was hypoxic at home with oxygen saturation in high 70's and in low 80's in ER and is currently decompensated with CHF. -May continue to treat medically for now with ASA, plavix, statin and beta jag for now. -D/C heparin gtt. -No CP as per patient. -Not a good candidate for LHC at this point given high risk of KINJAL and subsequent need for dialysis. He is CP free and stable. -On discharge, I think he would be better served continuing ASA only and stopping plavix. Status: Acute (4) Acute kidney injury superimposed on chronic kidney disease: Hold losartan for now. Status: Acute (5) Obstructive sleep apnea: Status: Acute (6) Diabetes mellitus type 2 in obese: Status: Acute Additional A&P Information Hypertenion Anemia Hyperkalemia UTI Indwelling Melgar catheter for last 2 weeks Severe SYED Attestations Medical Necessity Statement*: requires hospital stay for diuresis Coding Level of Care Code Acute Magnetic Prospecting Operator for g Fwd Diagnoses Acute respiratory failure with hypoxia and hypercapnia J96.01; J96.02 Acute exacerbation of CHF (congestive heart failure) I50.33 Heart failure type: diastolic NSTEMI (non-ST elevated myocardial infarction) I21.4 Acute kidney injury superimposed on chronic kidney disease N17.9; N18.9 Obstructive sleep apnea G47.33 Diabetes mellitus type 2 in obese E11.69; E66.9
[2020-10-08] MEDS: sennosides 8.6 mg Tablet 17.2 MG PO (19:53)
[2020-10-08] MEDS: tamsulosin 0.4 mg Capsule 0.8 MG PO (19:53)
[2020-10-08] MEDS: cefTRIAXone 2,000 MG in sodium chloride 0.9% (plus) 50 ML 100 MG IV (19:54)
[2020-10-08] MEDS: atorvastatin 40 mg Tablet 80 MG PO (19:54)
[2020-10-08] MEDS: OLANZapine 5 mg TABLET 2.5 MG PO (19:54)
[2020-10-08] MEDS: morphine 4 mg/mL SDV 1 mL 1 MG IVP (19:59)
--- NOTE | 2020-10-08 20:04 | PC.NURSE ---
Patient is alert and oriented x4. Patient c/o pain to espinal. PRN Morphine given. Assessment of espinal WNL. Patient was educated not to get up without assistance and verbalized understanding.
[2020-10-08 20:40] LABS: Glucose Point of Care 178 mg/dL (70-110)
--- NOTE | 2020-10-08 20:59 | PC.NURSE ---
Patient states I have chronic lower back pain and my espinal has been hurting for several days. When reassessing patient's pain, he states, It doesn't really hurt as long as I don't move, but I would say a 7 right now. Will monitor and reassess.
[2020-10-09] VITALS (17 sets, daily range): BP systolic 154–189; BP diastolic 81–97; PULSE 75–87; RESP 16–23; TEMP 36.4–37.4; O2SAT 72–98
--- NOTE | 2020-10-09 00:49 | PC.NURSE ---
Patient is currently resting with eyes closed. Will monitor.
[2020-10-09] MEDS: FUROsemide 10 mg/mL SDV 10mL 100 MG IVP ×2 (03:57→18:10)
[2020-10-09] MEDS: labetalol 5 mg/mL SDV 20mL 10 MG IVP ×2 (03:58→18:11)
--- NOTE | 2020-10-09 04:20 | PC.NURSE ---
Patient's blood pressure was 189/95. PRN Labetalol given per order. Blood pressure is now 164/88.
[2020-10-09 05:54] LABS: Basophils # 0.1 10^3/uL (0.0-0.1); Basophils % 0.7 %; Eosinophils # 0.3 10^3/uL (0.0-0.8); Eosinophils % 3.1 %; Hematocrit 26.5 % (42.0-52.0); Hemoglobin 7.8 g/dL (11.7-16.6); Lymphocytes % 11.4 %; Mean Corpuscular HGB Conc 29.4 g/dL (30.0-36.0); Mean Corpuscular Volume 91.7 fL (80-94); Mean Platelet Volume 10.9 fL (7.4-10.4); Monocytes # 0.9 10^3/uL (0.2-0.9); Monocytes % 10.5 %; Neutrophils # 6.37 10^3/uL (1.8-7.7); Neutrophils % 72.6 %; Nucleated Red Blood Cells % 0 %; Platelet Count 235 10^3/cmm (130-400); Red Blood Count 2.89 10^6/uL (4.1-5.3); Red Cell Distribution Width 15.4 % (12.1-15.1); White Blood Count 8.8 10^3/uL (4.0-10.0)
[2020-10-09 06:21] LABS: Alanine Aminotransferase 8 U/L (0-41); Albumin Level 3.2 g/dL (3.5-5.2); Alkaline Phosphatase 103 IU/L (40-130); Anion Gap 14.8 (5-19); Aspartate Amino Transferase 10 U/L (0-40); Blood Urea Nitrogen 75 mg/dL (6-20); Calcium 8.5 mg/dL (8.5-10.5); Carbon Dioxide 32 mmol/L (22-29); Chloride 103 mmol/L (98-107); Globulin 3.3 g/dL (1.3-4.6); Glomerular Filtration Rate 15.1 mL/min (90-130); Glucose 109 mg/dL (65-115); Magnesium 1.8 mg/dL (1.7-2.3); Osmolality Calculated 323 mOsm/kg (285-295); Potassium 4.8 mmol/L (3.5-5.1); Sodium 145 mmol/L (136-145); Total Bilirubin 0.2 mg/dL (0.15-1.2); Total Protein 6.5 g/dL (6.6-8.7)
[2020-10-09 06:41] LABS: Glucose Point of Care 135 mg/dL (70-110)
[2020-10-09] MEDS: hyDRALAzine 50 mg Tablet 100 MG PO ×3 (08:51→20:17)
[2020-10-09] MEDS: carvedilol 25 mg Tablet PO ×2 (08:51→20:17)
[2020-10-09] MEDS: famotidine 20 mg Tablet PO ×2 (08:51→17:42)
[2020-10-09] MEDS: gabapentin 300 mg Capsule PO ×2 (08:51→17:42)
[2020-10-09] MEDS: sevelamer 800 mg Tablet PO ×2 (08:51→17:41)
[2020-10-09] MEDS: predniSONE 5 mg Tablet PO (08:51)
[2020-10-09] MEDS: venlafaxine ER (24HR) 150 mg Capsule PO (08:51)
[2020-10-09] MEDS: aspirin 81 mg EC Tablet PO (08:51)
[2020-10-09] MEDS: clopidogrel 75 mg Tablet PO (08:51)
[2020-10-09] MEDS: cloNIDine 0.1 mg Tablet 0.2 MG PO ×2 (08:52→18:16)
[2020-10-09] MEDS: isosorbide mononitrate ER 60 mg Tablet 120 MG PO (08:52)
[2020-10-09] MEDS: metOLazone 5 MG Tablet PO (08:52)
[2020-10-09] MEDS: insulin glargine 100 units/1 mL 15 UNIT SUBCUT (08:58)
--- NOTE | 2020-10-09 10:34 | PM.DCS ---
Discharge Providers Date of Admission: 10/04/20 17:12 Date of Discharge: October 09, 2020 Attending Provider at Admission: Rodney Alvarado MD Attending Provider at Discharge: Rodney Alvarado MD Primary Care Provider: Sulma Wetzel MD Diagnoses at Discharge Discharge Diagnosis (1) Acute respiratory failure with hypoxia and hypercapnia: Status: Acute (2) Acute exacerbation of CHF (congestive heart failure): Status: Acute Qualifiers: Heart failure type: diastolic Qualified Code(s): I50.33 - Acute on chronic diastolic (congestive) heart failure (3) NSTEMI (non-ST elevated myocardial infarction): Status: Acute (4) Obstructive sleep apnea: Status: Acute (5) Diabetes mellitus type 2 in obese: Status: Acute (6) Urinary tract infection: Status: Acute Permanent problem details: Present on admission. Possibly related to catheter. (7) Medical non-compliance: Status: Acute (8) Toxic metabolic encephalopathy: Status: Acute Permanent problem details: Resolved. Likely related to UTI. (9) Obesity hypoventilation syndrome: Status: Acute (10) Morbid obesity with BMI of 40.0-44.9, adult: Status: Acute (11) Anasarca: Status: Acute (12) Chronic kidney disease, stage IV (severe): Status: Acute Reason for Visit Reason for Visit: SHORT OF BREATH Hospital Course Hospital Course Patient presented encephalopathic with evidence of acute respiratory failure and CHF exacerbation. He has non-ST elevation SC felt to be of type II. He appeared to have UTI which likely contributed to his encephalopathy. He was admitted and treated with antibiotic and diuresed aggressively. He gradually improved and this morning reports feeling much better and adamantly wants to go home. He is not interested in nursing facility placement. He does not want to stay in the hospital until CPAP or BiPAP can be arranged through insurance company. I had extensive discussion with patient today regarding importance of medical compliance and regarding importance of fluid restriction if he notices bilateral lower extremity swelling and shortness of breath. Patient voiced understanding. I am concerned regarding medical compliance therefore I will request home health to see patient post discharge to make sure he is doing okay. Patient to keep Melgar catheter in until he sees Dr. Oliva. Home health to change Melgar catheter every 30 days since last placement. Outpatient follow-up with Dr. Smith as well as Dr. Kendrick and Dr. Conrad will be requested. Patient's blood pressure remains quite elevated therefore I will continue clonidine and amlodipine. I will increase Bumex to twice daily. We will discontinue alprazolam as he is at very high risk of getting sedated compromising cardiopulmonary status. We will perform home O2 eval prior to discharge. Patient uses 4 L at home. He saturating 94% at 4 L this morning. He denies shortness of breath or chest pain this morning. His appetite and oral intake are good. He urinates well. Physical Exam Narrative: EXAM NARRATIVE: Lungs are clear and heart is regular. Lower extremities show trace edema. Abdomen is soft and nontender with positive bowel sounds. Urinary Catheter Management^: Melgar: Cath Placed During This Visit: yes Reason for Continuing Indwelling Catheter: Chronic Indwelling Urinary Catheter on Admission Urinary Catheter Date of Insertion: 09/27/20 Discharge Data Data Completed and Pending: Completed Studies During Hospitalization Category Date Time Status XR chest 1V jonas ble [id number] Stat Exams 10/04/20 13:09 Completed CV echo lmt wo/w contras [id number] Rout ine Ultrasound 10/05/20 05:00 Completed US/CV paperwork R outine Ultrasound 10/05/20 14:21 Completed Pending at discharge Category Date Time Status Blood Culture Sta t Lab 10/04/20 13:44 Results Labs from last 24 hours 10/09/20 10/09/20 10/09/20 06:33 04:55 04:55 WBC 8.8 RBC 2.89 L Hgb 7.8 L Hct 26.5 L MCV 91.7 MCH 27.0 L MCHC 29.4 L RDW 15.4 H Plt Count 235 MPV 10.9 H Neut % (Auto) 72.6 Lymph % (Auto) 11.4 [place] % (Auto) 10.5 Eos % (Auto) 3.1 Baso % (Auto) 0.7 Neut # (Auto) 6.37 Lymph # (Auto) 1.0 [place] # (Auto) 0.9 Eos # (Auto) 0.3 Baso # (Auto) 0.1 Nucleated RBC % (a uto) 0 Nucleated RBCs # 0.0 Sodium 145 Potassium 4.8 Chloride 103 Carbon Dioxide 32 H Anion Gap 14.8 BUN 75 H Creatinine 4.2 H GFR Calculation 15.1 L Glucose 109 POC Glucose 135 H Calculated Osmolal ity 323 H Calcium 8.5 Magnesium 1.8 Total Bilirubin 0.2 AST 10 ALT 8 Alkaline Phosphata se 103 Total Protein 6.5 L Albumin 3.2 L Globulin 3.3 10/08/20 10/08/20 10/08/20 20:10 16:25 11:23 WBC RBC Hgb Hct MCV MCH MCHC RDW Plt Count MPV Neut % (Auto) Lymph % (Auto) [place] % (Auto) Eos % (Auto) Baso % (Auto) Neut # (Auto) Lymph # (Auto) [place] # (Auto) Eos # (Auto) Baso # (Auto) Nucleated RBC % (a uto) Nucleated RBCs # Sodium Potassium Chloride Carbon Dioxide Anion Gap BUN Creatinine GFR Calculation Glucose POC Glucose 178 H 142 H 139 H Calculated Osmolal ity Calcium Magnesium Total Bilirubin AST ALT Alkaline Phosphata se Total Protein Albumin Globulin Vitals: Last Vital Signs Temp 98.2 F 10/09/20 07:31 Pulse 80 10/09/20 09:15 Resp 18 10/09/20 09:15 BP 177/91 10/09/20 08:52 Pulse Ox 94 10/09/20 09:15 Discharge Plan Discharge Patient Disposition: Home Health Service Condition: Stable Prescriptions: New olanzapine 5 mg Tablet 2.5 mg PO BEDTIME Qty: 30 RF: 0 hydralazine 50 mg Tablet 100 mg PO TID Qty: 90 RF: 0 prednisone 5 mg Tablet 5 mg PO DAILY Qty: 30 RF: 0 pantoprazole [Protonix] 40 mg tablet,delayed release (DR/EC) 40 mg PO DAILY 28 Days Qty: 30 RF: 0 Continued Lantus U-100 Insulin 100 unit/mL solution 15 unit SUBCUT DAILY RF: 0 Aspir-81 81 mg Tablet,Delayed Release (Dr/Ec) 81 mg PO DAILY RF: 0 tamsulosin 0.4 mg capsule 0.8 mg PO QPM RF: 0 amlodipine 10 mg tablet 10 mg PO DAILY RF: 0 carvedilol 25 mg tablet 25 mg PO BID RF: 0 sennosides 8.6 mg Tablet 8.6 mg PO DAILY RF: 0 sevelamer HCl 800 mg Tablet 800 mg PO BID RF: 0 venlafaxine 150 mg Capsule,Extended Release 24hr 150 mg PO QAM RF: 0 clonidine HCl 0.3 mg Tablet 0.3 mg PO Q8H RF: 0 Imdur 120 mg Tablet Extended Release 24 Hr 120 mg PO DAILY RF: 0 Tylenol 325 mg Tablet 650 mg PO Q6H PRN (Reason: pain) RF: 0 atorvastatin 80 mg tablet 80 mg PO DAILY RF: 0 Isopto Tears 0.5 % Drops 1 drp eye-both BEDTIME Qty: 15 RF: 0 gabapentin 300 mg capsule 300 mg PO BID Qty: 0 RF: 0 albuterol sulfate 90 mcg/actuation HFA aerosol inhaler 2 inh inhalation Q6H PRN (Reason: shortness of breath or wheezing) Qty: 8.5 RF: 0 Changed bumetanide 2 mg tablet 2 mg PO BID Qty: 0 RF: 0 Discontinued alprazolam 0.5 mg tablet 0.5 mg PO BEDTIME PRN (Reason: Anxiety) RF: 0 famotidine 10 mg Tablet 10 mg PO BID RF: 0 hydralazine 100 mg Tablet 100 mg PO Q8H RF: 0 furosemide 40 mg tablet 40 mg PO BID Qty: 60 RF: 0 Discharge Orders: Discharge Order (Routine); Ordered 10/09/20 Ordered By: Rodney Alvarado Referrals: Sulma Wetzel MD [Primary Care Provider] - 4-7 days Moose Conrad MD [Physician] - 1 week Han Smith MD [Referring] - 1-3 days Shirin Kendrick MD [Physician] - 1 week Eusebio Oliva MD [Physician] - 1 week Discharge Diet: Advance as tolerated Discharge Activity: Increase activity as tolerated Activity Restrictions/Additional Instructions: Please call your doctor or present to emergency department if your condition worsens or you develop diarrhea, lightheadedness, fatigue or see blood in your stool or black stool. Please restrict fluid consumption if you develop lower extremity swelling and shortness of breath as we have discussed. Please keep Melgar catheter in until you see Dr. Oliva. Please note that the Melgar catheter needs to be changed every 30 days. Please note that you will likely need to have another sleep study performed to qualify for CPAP/BiPAP. Please follow-up with pulmonary service as requested for further evaluation and treatment. Discharge Attestations Time Spent in Discharge Care*: greater than 30 min Status at Discharge: Cognitive status at discharge: cognitively intact, Behavioral status at discharge: cooperative, Quality Metrics Clinical Quality Measures During this hospital stay, did patient experience: AMI Clinical Trial Participant: No Contraindication to aspirin (AMI): Aspirin given Contraindication to statin: Statin prescribed Coding Level of Care Code Acute Chg FW [place] note Diagnoses Acute respiratory failure with hypoxia and hypercapnia J96.01; J96.02 Acute exacerbation of CHF (congestive heart failure) I50.33 Heart failure type: diastolic NSTEMI (non-ST elevated myocardial infarction) I21.4 Obstructive sleep apnea G47.33 Diabetes mellitus type 2 in obese E11.69; E66.9 Urinary tract infection N39.0 Medical non-compliance Z91.19 Toxic metabolic encephalopathy G92 Obesity hypoventilation syndrome E66.2 Morbid obesity with BMI of 40.0-44.9, adult E66.01; Z68.41 Anasarca R60.1 Chronic kidney disease, stage IV (severe) N18.4
--- NOTE | 2020-10-09 11:03 | P.PN_ITS ---
Subjective Subjective: Interval history: Patient is feeling okay. He has no chest pain or shortness of breath. Is ambulating on telemetry. He is upbeat on the prospect of going home today. No fever or chills. No abdominal pain. No hematemesis or melena. Medications: Reviewed: Yes Medication Review Details: Current Medications Acetaminophen (Acetaminophen 325 Mg Tablet) 650 mg PO Q6H PRN PRN Reason: Mild/Mod Pain Or Temp >/= 101 Albuterol Sulfate (Albuterol 8 Gm Mdi) 1 puff INHALATION Q6H.RESPIRATORY PRN PRN Reason: shortness of breath or wheezing Artificial Tears (Artificial Tears Op Soln 15 Ml Btl) 1 drop EYE-BOTH BEDTIME PRN PRN Reason: DRY EYES Aspirin (Aspirin 81 Mg Ec Tablet) 81 mg PO DAILY [facility] Last Admin: 10/09/20 08:51 Dose: 81 mg Documented by: Atorvastatin Calcium (Atorvastatin 40 Mg Tablet) 80 mg PO BEDTIME [facility] Last Admin: 10/08/20 19:54 Dose: 80 mg Documented by: Carvedilol (Carvedilol 25 Mg Tablet) 25 mg PO 0900,2100 [facility] Last Admin: 10/09/20 08:51 Dose: 25 mg Documented by: Clonidine HCl (Clonidine 0.1 Mg Tablet) 0.2 mg PO Q12H [facility] Last Admin: 10/09/20 08:52 Dose: 0.2 mg Documented by: Clopidogrel Bisulfate (Clopidogrel 75 Mg Tablet) 75 mg PO DAILY [facility] Last Admin: 10/09/20 08:51 Dose: 75 mg Documented by: Docusate Sodium (Docusate Sodium 100 Mg Capsule) 100 mg PO BID PRN PRN Reason: CONSTIPATION Last Admin: 10/07/20 08:58 Dose: 100 mg Documented by: Famotidine (Famotidine 20 Mg Tablet) 20 mg PO BID [facility] Last Admin: 10/09/20 08:51 Dose: 20 mg Documented by: Furosemide (Furosemide 10 Mg/Ml Sdv 10ml) 100 mg IVP Q12H [facility] Last Admin: 10/09/20 03:57 Dose: 100 mg Documented by: Gabapentin (Gabapentin 300 Mg Capsule) 300 mg PO BID [facility] Last Admin: 10/09/20 08:51 Dose: 300 mg Documented by: Hydralazine HCl (Hydralazine 50 Mg Tablet) 100 mg PO TID [facility] Last Admin: 10/09/20 08:51 Dose: 100 mg Documented by: Ceftriaxone Sodium 2,000 mg/ (Sodium Chloride) 50 mls @ 100 mls/hr IV Q24H [facility]; Protocol Last Infusion: 10/08/20 20:37 Dose: Infused Documented by: Insulin Aspart (Insulin Aspart 100 Unit/1 Ml) 0 unit SUBCUT WM&BEDTIME [facility]; Protocol Last Admin: 10/09/20 07:09 Dose: Not Given Documented by: Insulin Glargine (Insulin Glargine 100 Units/1 Ml) 15 unit SUBCUT DAILY [facility] Last Admin: 10/09/20 08:58 Dose: 15 unit Documented by: Isosorbide Mononitrate (Isosorbide Mononitrate Er 60 Mg Tablet) 120 mg PO DAILY [facility] Last Admin: 10/09/20 08:52 Dose: 120 mg Documented by: Labetalol HCl (Labetalol 5 Mg/Ml Sdv 20ml) 10 mg IVP Q4H PRN PRN Reason: HYPERTENSION Last Admin: 10/09/20 03:58 Dose: 10 mg Documented by: Lanolin (Lanolin Oint 7 Gm) 1 applic TOPICAL PRN PRN PRN Reason: DRYNESS Last Admin: 10/06/20 18:12 Dose: 1 applic Documented by: Losartan Potassium (Losartan 50 Mg Tablet) 50 mg PO DAILY [facility] Last Admin: 10/05/20 09:13 Dose: 50 mg Documented by: Metolazone (Metolazone 5 Mg Tablet) 5 mg PO DAILY [facility] Last Admin: 10/09/20 08:52 Dose: 5 mg Documented by: Olanzapine (Olanzapine 5 Mg Tablet) 2.5 mg PO BEDTIME [facility] Last Admin: 10/08/20 19:54 Dose: 2.5 mg Documented by: Ondansetron HCl (Ondansetron 2 Mg/Ml Sdv 2 Ml) 4 mg IVP Q6H PRN PRN Reason: NAUSEA AND VOMITING Prednisone (Prednisone 5 Mg Tablet) 5 mg PO DAILY [facility] Last Admin: 10/09/20 08:51 Dose: 5 mg Documented by: Senna (Sennosides 8.6 Mg Tablet) 17.2 mg PO BEDTIME [facility] Last Admin: 10/08/20 19:53 Dose: 17.2 mg Documented by: Sevelamer Carbonate (Sevelamer 800 Mg Tablet) 800 mg PO BIDWM [facility] Last Admin: 10/09/20 08:51 Dose: 800 mg Documented by: Tamsulosin HCl (Tamsulosin 0.4 Mg Capsule) 0.8 mg PO BEDTIME [facility] Last Admin: 10/08/20 19:53 Dose: 0.8 mg Documented by: Venlafaxine HCl (Venlafaxine Er (24hr) 150 Mg Capsule) 150 mg PO DAILY [facility] Last Admin: 10/09/20 08:51 Dose: 150 mg Documented by: Vitals/I&O/Wt Last Vital Signs Temp 98.2 F 10/09/20 07:31 Pulse 80 10/09/20 09:15 Resp 18 10/09/20 09:15 BP 177/91 10/09/20 08:52 Pulse Ox 94 10/09/20 09:15 10/08/20 10/09/20 10/09/20 22:59 06:59 14:59 Intake Total 390 / 870 300 / 1170 240 / 240 Output Total 750 / 2200 2000 / 4200 675 / 675 Balance -360 / -1330 -1700 / -3030 -435 / -435 Physical Exam Narrative: EXAM NARRATIVE: Intermittent GENERAL: The patient is alert and oriented times three. Not in any acute distress. Morbidly obese. HEENT: Moderate pallor. No icterus. Oral cavity: There are no mucous membrane lesions. NECK: Trachea appears to be central. No masses noted. No JVD or thyromegaly appreciated. No carotid bruit. RESPIRATORY: Chest is symmetrical. No intercostals muscle retraction or any accessory muscle activation. There is no chest wall tenderness. Breath sounds are heard bilaterally. No rales or rhonchi heard. No evidence of any consolidation. BREASTS: Deferred. Sounds are diminished in the bases. HEART: Heart sounds are normal. No S3 or S4 ABDOMEN: Abdomen is obese nontender no organomegaly bowel sounds are normally heard. Dependent edema in the lumbar region : Deferred. RECTAL: Deferred. LYMPHATIC: No lymphadenopathy noted in the neck region. EXTREMITIES: 1+ edema with no cyanosis. MUSCULOSKELETAL: No acute joint deformities or swelling. SKIN: There are no significant scars or skin rash noted. NEUROPSYCHIATRIC: The patient is alert and oriented x3. No acute movements of the upper extremity intermittent jerking movements of the upper extremities Urinary Catheter Management^: Melgar: Cath Placed During This Visit: yes Reason for Continuing Indwelling Catheter: Chronic Indwelling Urinary Catheter on Admission Urinary Catheter Date of Insertion: 09/27/20 Data : 10/09/20 04:55 10/09/20 04:55 Other Labs: Laboratory Last Values WBC 8.8 10^3/uL (4.0-10.0) 10/09/20 04:55 RBC 2.89 10^6/uL (4.1-5.3) L 10/09/20 04:55 Hgb 7.8 g/dL (11.7-16.6) L 10/09/20 04:55 Hct 26.5 % (42.0-52.0) L 10/09/20 04:55 MCV 91.7 fL (80-94) 10/09/20 04:55 MCH 27.0 pg (28.0-34.0) L 10/09/20 04:55 MCHC 29.4 g/dL (30.0-36.0) L 10/09/20 04:55 RDW 15.4 % (12.1-15.1) H 10/09/20 04:55 Plt Count 235 10^3/cmm (130-400) 10/09/20 04:55 MPV 10.9 fL (7.4-10.4) H 10/09/20 04:55 Neut % (Auto) 72.6 % 10/09/20 04:55 Lymph % (Auto) 11.4 % 10/09/20 04:55 [place] % (Auto) 10.5 % 10/09/20 04:55 Eos % (Auto) 3.1 % 10/09/20 04:55 Baso % (Auto) 0.7 % 10/09/20 04:55 Neut # (Auto) 6.37 10^3/uL (1.8-7.7) 10/09/20 04:55 Lymph # (Auto) 1.0 10^3/uL (0.8-4.8) 10/09/20 04:55 [place] # (Auto) 0.9 10^3/uL (0.2-0.9) 10/09/20 04:55 Eos # (Auto) 0.3 10^3/uL (0.0-0.8) 10/09/20 04:55 Baso # (Auto) 0.1 10^3/uL (0.0-0.1) 10/09/20 04:55 Nucleated RBC % (auto) 0 % 10/09/20 04:55 Total Counted 100 (0-100) 10/04/20 13:04 Atypical Lymphs % 0.0 % (0-5) 10/04/20 13:04 Absolute Neutrophils 8.2 10^3/cmm (1.4-6.5) H 10/04/20 13:04 Segmented Neutrophils 79 % 10/04/20 13:04 Abs Segm Neuts (Man) 8.2 10/cmm (1.6-7.1) H 10/04/20 13:04 Band Neutrophils 0.0 % 10/04/20 13:04 Abs Band Neuts (Man) 0.0 10^3/cmm (0.0-1.2) 10/04/20 13:04 Lymphocytes (Manual) 1 % 10/04/20 13:04 Monocytes (Manual) 4.0 % 10/04/20 13:04 Absolute Monocytes 0.4 10^3/cmm (0.1-0.6) 10/04/20 13:04 Eosinophils (Manual) 4 % 10/04/20 13:04 Absolute Eosinophils 0.4 10^3/cmm (0.0-0.7) 10/04/20 13:04 Basophils (Manual) 2.0 % 10/04/20 13:04 Absolute Basophils 0.2 10^3/cmm (0.0-0.2) 10/04/20 13:04 Metamyelocytes 4.0 % 10/04/20 13:04 Promyelocytes 5.0 % 10/04/20 13:04 Nucleated RBCs 1.0 /100WBC (0-1) 10/04/20 13:04 Nucleated RBCs # 0.0 /100WBC 10/09/20 04:55 Platelet Estimate Normal (Normal) 10/04/20 13:04 Polychromasia Trace 10/04/20 13:04 Anisocytosis Trace 10/04/20 13:04 APTT 65.6 SECONDS (23.9-36.7) H 10/06/20 16:44 Specimen Type Arterial 10/04/20 15:07 Sample Site Lr 10/04/20 15:07 ABG pH 7.24 (7.35-7.45) L 10/04/20 15:07 ABG pCO2 61.4 mmHg (35-45) H* 10/04/20 15:07 ABG pO2 61.1 mmHg (80.0-100.0) L 10/04/20 15:07 ABG HCO3 26.2 mmol/L (22-26) H 10/04/20 15:07 ABG O2 Saturation 90.1 10/04/20 15:07 ABG Base Excess -1.8 mmol/L (-2.0-2.0) 10/04/20 15:07 Jesus Test Pos 10/04/20 15:07 A-a O2 Gradient 15.7 mmHg (5-10) H 10/04/20 15:07 Hematocrit 28.4 % (42-52) L 10/04/20 15:07 Hgb O2 Saturation 97.3 % (95-100) 10/04/20 15:07 Carboxyhemoglobin 2.0 %THgb (0.4-20.1) 10/04/20 15:07 Methemoglobin 1.1 % (0.4-1.5) 10/04/20 15:07 Total Hemoglobin Not Reportable 10/04/20 15:07 Sodium 139.0 mmol/L (131-143) 10/04/20 15:07 Potassium 5.6 mmol/L (3.5-5.0) H 10/04/20 15:07 Glucose 129.0 mg/dL (70-115) H 10/04/20 15:07 Ionized Calcium 1.1 mmol/L (1.1-1.4) 10/04/20 15:07 O2 Delivery Device Nc 10/04/20 15:07 O2 Liters/Min 4.0 % 10/04/20 15:07 Specimen Drawn By Ronnie 10/04/20 15:07 Barrel Planer ID Ronnie 10/04/20 15:07 Sodium 145 mmol/L (136-145) 10/09/20 04:55 Potassium 4.8 mmol/L (3.5-5.1) 10/09/20 04:55 Chloride 103 mmol/L (98-107) 10/09/20 04:55 Carbon Dioxide 32 mmol/L (22-29) H 10/09/20 04:55 Anion Gap 14.8 (5-19) 10/09/20 04:55 BUN 75 mg/dL (6-20) H 10/09/20 04:55 Creatinine 4.2 mg/dL (0.7-1.2) H 10/09/20 04:55 GFR Calculation 15.1 mL/min (90-130) L 10/09/20 04:55 Glucose 109 mg/dL (65-115) 10/09/20 04:55 POC Glucose 135 mg/dL (70-110) H 10/09/20 06:33 Calculated Osmolality 323 mOsm/kg (285-295) H 10/09/20 04:55 Lactic Acid 0.5 mmol/L (0.5-2.2) 10/04/20 16:17 Calcium 8.5 mg/dL (8.5-10.5) 10/09/20 04:55 Magnesium 1.8 mg/dL (1.7-2.3) 10/09/20 04:55 Total Bilirubin 0.2 mg/dL (0.15-1.2) 10/09/20 04:55 AST 10 U/L (0-40) 10/09/20 04:55 ALT 8 U/L (0-41) 10/09/20 04:55 Alkaline Phosphatase 103 IU/L (40-130) 10/09/20 04:55 Creatine Kinase 109 U/L (39-308) 10/04/20 13:04 Troponin T Baseline 379 ng/L (0-15) H* 10/04/20 13:04 Troponin T 120 Minute 407.8 ng/L (0-15) H 10/04/20 15:26 Delta Troponin T 28.8 ABS# (0-10) H* 10/04/20 15:26 Troponin T Hi Sens 6Hr 430.3 ng/L (0-15) H 10/04/20 19:19 Troponin T Hi Sens 6Hr Delta 51.3 ng/L (0-12) H* 10/04/20 19:19 NT-Pro-B Natriuret Pep 05494 pg/mL (0-125) H 10/05/20 00:26 Total Protein 6.5 g/dL (6.6-8.7) L 10/09/20 04:55 Albumin 3.2 g/dL (3.5-5.2) L 10/09/20 04:55 Globulin 3.3 g/dL (1.3-4.6) 10/09/20 04:55 Lipase 16 U/L (13-60) 10/04/20 13:04 Procalcitonin 0.39 ng/mL (0-0.5) 10/05/20 00:26 Urine Color Yellow (Yellow) 10/04/20 13:44 Urine Appearance Cloudy (CLEAR) 10/04/20 13:44 Urine pH 5 (5-7) 10/04/20 13:44 Ur Specific [place] 1.020 (1.005-1.030) 10/04/20 13:44 Urine Protein 3+ (Negative) H 10/04/20 13:44 Urine Glucose (UA) 1+ (Normal) 10/04/20 13:44 Urine Ketones Negative (Negative) 10/04/20 13:44 Urine Blood 3+ (Negative) H 10/04/20 13:44 Urine Nitrate Negative (Negative) 10/04/20 13:44 Urine Bilirubin Neg (Negative) 10/04/20 13:44 Urine Urobilinogen Norm mg/dL (Negative) 10/04/20 13:44 Ur Leukocyte Esterase Negative (Negative) 10/04/20 13:44 Urine RBC 10-15 /hpf (0-2) H 10/04/20 13:44 Urine WBC 10-15 /hpf (0-5) H 10/04/20 13:44 Ur Squamous Epith Cells 0-4 /hpf (0-5) H 10/04/20 13:44 Amorphous Sediment Not Reportable 10/04/20 13:44 Urine Bacteria 1+ /hpf (NONE) H 10/04/20 13:44 Salicylates < 0.3 mg/dL (3-10) L 10/04/20 13:04 Ethyl Alcohol < 10 mg/dL (0-10) 10/04/20 13:04 Serum Ketones Negative (Negative) 10/04/20 16:17 A&P Assessment and plan (1) Acute respiratory failure with hypoxia and hypercapnia: Currently resolved. Patient is back to his baseline. Status: Acute (2) Acute exacerbation of CHF (congestive heart failure): The heart failure seems to be compensated. Continue on the current medications. Status: Acute Qualifiers: Heart failure type: diastolic Qualified Code(s): I50.33 - Acute on chronic diastolic (congestive) heart failure (3) NSTEMI (non-ST elevated myocardial infarction): Status: Acute (4) Acute kidney injury superimposed on chronic kidney disease: Patient's kidney function slowly getting worse. His hemoglobin also dropped from 8.2-7.8 today. This needs to be further evaluated. Discussed with Dr. Alvarado Status: Acute (5) Obstructive sleep apnea: Continue on the current measures. Status: Acute (6) Diabetes mellitus type 2 in obese: The blood sugar is fairly under control. Status: Acute Additional A&P Information Hypertenion-currently normotensive Anemia-progressive drop in the hemoglobin Hyperkalemia-solved UTI-afebrile Indwelling Melgar catheter Severe SYED Attestations Medical Necessity Statement*: Disposition as per the primary. Other Attestations: Please make an appointment to be seen by the nurse practitioner at the [facility] in [address] Ivey in 3 weeks Coding Level of Care Code Acute Net Coordinator for [facility] Diagnoses Acute respiratory failure with hypoxia and hypercapnia J96.01; J96.02 Acute exacerbation of CHF (congestive heart failure) I50.33 Heart failure type: diastolic NSTEMI (non-ST elevated myocardial infarction) I21.4 Acute kidney injury superimposed on chronic kidney disease N17.9; N18.9 Obstructive sleep apnea G47.33 Diabetes mellitus type 2 in obese E11.69; E66.9
[2020-10-09 11:46] LABS: Glucose Point of Care 155 mg/dL (70-110)
--- NOTE | 2020-10-09 15:43 | PC.NURSE ---
Patient received discharge orders today to go home but authorization for bipap was unsuccessful. Nurse was getting patient ready to go home and the doctor came in and told the patient that we are not comfortable sending him home due to his oxygen requirements. Patient is requiring 4L NC at rest and 6L NC on exertion. Patient wears bipap at night in hospital for severe obstructive sleep apnea. At this time the doctor is uncomfortable to d/c with out the proper equipment being provided at home. The patient was upset about this decision and contemplated going home AMA. The patient was advised by the nurses and doctor that going home would not be in his best interest and that it would be a safety risk for him. He agreed to stay for further treatment and await approval for bipap. The patients sister and daughter were able to convince him to stay until at least Sunday. Patient is in room now, sitting on the side of the bed with the daughter at bedside. Pt has no further complaints at this time.
[2020-10-09 16:36] LABS: Glucose Point of Care 197 mg/dL (70-110)
[2020-10-09 20:14] LABS: Glucose Point of Care 163 mg/dL (70-110)
[2020-10-09] MEDS: cefTRIAXone 2,000 MG in sodium chloride 0.9% (plus) 50 ML 100 MG IV (20:16)
[2020-10-09] MEDS: OLANZapine 5 mg TABLET 2.5 MG PO (20:17)
[2020-10-09] MEDS: atorvastatin 40 mg Tablet 80 MG PO (20:17)
[2020-10-09] MEDS: sennosides 8.6 mg Tablet 17.2 MG PO (20:18)
[2020-10-09] MEDS: tamsulosin 0.4 mg Capsule 0.8 MG PO (20:18)
--- NOTE | 2020-10-09 22:22 | PC.NURSE ---
BEDSIDE REPORT RECEIVED FROM JORGE CARVAJAL. PT RESTING IN BED. PT DENIES PAIN AT THIS TIME. WILL CONTINUE TO MONITOR.
[2020-10-10] VITALS (14 sets, daily range): BP systolic 143–170; BP diastolic 84–92; PULSE 75–89; RESP 14–26; TEMP 36.4–37.1; O2SAT 93–98
[2020-10-10] MEDS: FUROsemide 10 mg/mL SDV 10mL 100 MG IVP ×2 (05:01→17:45)
--- NOTE | 2020-10-10 05:23 | PC.NURSE ---
PT IS RESTING IN BED. STAFF PHYSICIAN NURSE GAVE LASIX IVP. PT DENIES PAIN AT THIS TIME. WILL CONTINUE TO MONITOR.
[2020-10-10 07:27] LABS: Glucose Point of Care 107 mg/dL (70-110)
[2020-10-10] MEDS: hyDRALAzine 50 mg Tablet 100 MG PO ×3 (08:11→21:36)
[2020-10-10] MEDS: isosorbide mononitrate ER 60 mg Tablet 120 MG PO (08:12)
[2020-10-10] MEDS: cloNIDine 0.1 mg Tablet 0.2 MG PO (08:12)
[2020-10-10] MEDS: clopidogrel 75 mg Tablet PO (08:12)
[2020-10-10] MEDS: carvedilol 25 mg Tablet PO ×2 (08:12→21:44)
[2020-10-10] MEDS: venlafaxine ER (24HR) 150 mg Capsule PO (08:12)
[2020-10-10] MEDS: metOLazone 5 MG Tablet PO (08:13)
[2020-10-10] MEDS: famotidine 20 mg Tablet PO ×2 (08:13→17:36)
[2020-10-10] MEDS: aspirin 81 mg EC Tablet PO (08:13)
[2020-10-10] MEDS: gabapentin 300 mg Capsule PO ×2 (08:13→17:36)
[2020-10-10] MEDS: sevelamer 800 mg Tablet PO ×2 (08:13→17:36)
[2020-10-10] MEDS: insulin glargine 100 units/1 mL 15 UNIT SUBCUT (08:26)
--- NOTE | 2020-10-10 09:25 | PC.NURSE ---
Nurse discontinued prednisone per doctors order due to decreasing HBG level, patient is on high dose PPI.
[2020-10-10 11:45] LABS: Glucose Point of Care 146 mg/dL (70-110)
--- NOTE | 2020-10-10 12:37 | P.PN_ITS ---
Subjective Subjective: Interval history: After extensive discussion yesterday patient agreed to stay and wait for CPAP to be arranged. Denies shortness of breath or chest pain. Denies abdominal pain. He continues to have good urinary output but still requires 4 L by nasal cannula to saturate in the mid 90s. Vitals/I&O/Wt Last Vital Signs Temp 97.6 F 10/10/20 11:21 Pulse 79 10/10/20 11:21 Resp 15 10/10/20 11:21 BP 165/86 10/10/20 11:21 Pulse Ox 94 10/10/20 11:21 10/09/20 10/10/20 10/10/20 21:59 06:59 14:59 Intake Total 120 / 120 Output Total 1350 / 1350 Balance -1230 / -1230 Physical Exam Narrative: EXAM NARRATIVE: Lungs are clear and heart is regular. Lower extremities show trace edema. Abdomen is soft and nontender with positive bowel sounds. Urinary Catheter Management^: Melgar: Cath Placed During This Visit: yes Reason for Continuing Indwelling Catheter: Chronic Indwelling Urinary Catheter on Admission Urinary Catheter Date of Insertion: 09/27/20 Data : 10/09/20 04:55 10/09/20 04:55 Micro: Microbiology 10/04/20 13:44 Blood Culture - Final Blood NO GROWTH AFTER 5 DAYS 10/04/20 13:13 Blood Culture - Final Blood NO GROWTH AFTER 5 DAYS A&P Assessment and plan (1) Acute respiratory failure with hypoxia and hypercapnia: Status: Acute (2) Acute exacerbation of CHF (congestive heart failure): Status: Acute Qualifiers: Heart failure type: diastolic Qualified Code(s): I50.33 - Acute on chronic diastolic (congestive) heart failure (3) NSTEMI (non-ST elevated myocardial infarction): Status: Acute (4) Obstructive sleep apnea: Noncompliant with trilogy Status: Acute (5) Diabetes mellitus type 2 in obese: Status: Acute (6) Urinary tract infection: Status: Acute (7) Medical non-compliance: Status: Acute (8) Toxic metabolic encephalopathy: Improved Status: Acute (9) Obesity hypoventilation syndrome: Status: Acute (10) Morbid obesity with BMI of 40.0-44.9, adult: Status: Acute (11) Anasarca: Status: Acute (12) Chronic kidney disease, stage IV (severe): Status: Acute Additional A&P Information PLAN: Continue current monitoring and treatment. Patient definitely requires at least CPAP support at night for obstructive sleep apnea. Case management is trying to arrange nonmechanical ventilation. I will continue current monitoring and treatment for now but hold prednisone due to concern for possible GI bleed. Will increase clonidine to 0.3 mg twice daily for better blood pressure control. Repeat labs this afternoon and tomorrow morning. Attestations Medical Necessity Statement*: Patient with obstructive sleep apnea and respiratory failure requires close inpatient monitoring and treatment till CPAP/BiPAP is arranged. Coding Level of Care Code Acute Outside Plant Technician for [facility] Diagnoses Acute respiratory failure with hypoxia and hypercapnia J96.01; J96.02 Acute exacerbation of CHF (congestive heart failure) I50.33 Heart failure type: diastolic NSTEMI (non-ST elevated myocardial infarction) I21.4 Obstructive sleep apnea G47.33 Diabetes mellitus type 2 in obese E11.69; E66.9 Urinary tract infection N39.0 Medical non-compliance Z91.19 Toxic metabolic encephalopathy G92 Obesity hypoventilation syndrome E66.2 Morbid obesity with BMI of 40.0-44.9, adult E66.01; Z68.41 Anasarca R60.1 Chronic kidney disease, stage IV (severe) N18.4
[2020-10-10 13:46] LABS: Basophils # 0.1 10^3/uL (0.0-0.1); Basophils % 0.7 %; Eosinophils # 0.4 10^3/uL (0.0-0.8); Eosinophils % 4.4 %; Hemoglobin 7.9 g/dL (11.7-16.6); Lymphocytes # 0.7 10^3/uL (0.8-4.8); Lymphocytes % 8.5 %; Mean Corpuscular HGB Conc 29.3 g/dL (30.0-36.0); Mean Corpuscular Volume 92.2 fL (80-94); Mean Platelet Volume 10.8 fL (7.4-10.4); Monocytes # 0.8 10^3/uL (0.2-0.9); Monocytes % 9.1 %; Neutrophils # 6.62 10^3/uL (1.8-7.7); Neutrophils % 76.1 %; Nucleated Red Blood Cells % 0 %; Platelet Count 213 10^3/cmm (130-400); Red Blood Count 2.93 10^6/uL (4.1-5.3); Red Cell Distribution Width 15.5 % (12.1-15.1); White Blood Count 8.7 10^3/uL (4.0-10.0)
[2020-10-10 13:55] LABS: Alanine Aminotransferase 9 U/L (0-41); Albumin Level 3.1 g/dL (3.5-5.2); Alkaline Phosphatase 99 IU/L (40-130); Anion Gap 13.7 (5-19); Aspartate Amino Transferase 11 U/L (0-40); Blood Urea Nitrogen 78 mg/dL (6-20); Calcium 8.6 mg/dL (8.5-10.5); Carbon Dioxide 33 mmol/L (22-29); Chloride 100 mmol/L (98-107); Globulin 3.3 g/dL (1.3-4.6); Glomerular Filtration Rate 15.1 mL/min (90-130); Glucose 139 mg/dL (65-115); Osmolality Calculated 320 mOsm/kg (285-295); Potassium 4.7 mmol/L (3.5-5.1); Sodium 142 mmol/L (136-145); Total Bilirubin 0.2 mg/dL (0.15-1.2); Total Protein 6.4 g/dL (6.6-8.7)
[2020-10-10] MEDS: acetaminophen 325 mg Tablet 650 MG PO (14:05)
[2020-10-10 16:47] LABS: Glucose Point of Care 162 mg/dL (70-110)
--- NOTE | 2020-10-10 18:51 | P.PN_ITS ---
Subjective Subjective: Interval history: Patient is feeling okay. He has the baseline shortness of breath with exertion. The respiratory department is trying to get his CPAP machine approved and set up at home the patient denies any chest pain or palpitations. No dizziness or syncopal episodes. Medications: Reviewed: Yes Medication Review Details: Current Medications Acetaminophen (Acetaminophen 325 Mg Tablet) 650 mg PO Q6H PRN PRN Reason: Mild/Mod Pain Or Temp >/= 101 Last Admin: 10/10/20 14:05 Dose: 650 mg Documented by: Albuterol Sulfate (Albuterol 8 Gm Mdi) 1 puff INHALATION Q6H.RESPIRATORY PRN PRN Reason: shortness of breath or wheezing Artificial Tears (Artificial Tears Op Soln 15 Ml Btl) 1 drop EYE-BOTH BEDTIME PRN PRN Reason: DRY EYES Aspirin (Aspirin 81 Mg Ec Tablet) 81 mg PO DAILY [facility] Last Admin: 10/10/20 08:13 Dose: 81 mg Documented by: Atorvastatin Calcium (Atorvastatin 40 Mg Tablet) 80 mg PO BEDTIME [facility] Last Admin: 10/09/20 20:17 Dose: 80 mg Documented by: Carvedilol (Carvedilol 25 Mg Tablet) 25 mg PO 0900,2100 [facility] Last Admin: 10/10/20 08:12 Dose: 25 mg Documented by: Clonidine HCl (Clonidine 0.1 Mg Tablet) 0.3 mg PO Q12H [facility] Clopidogrel Bisulfate (Clopidogrel 75 Mg Tablet) 75 mg PO DAILY [facility] Last Admin: 10/10/20 08:12 Dose: 75 mg Documented by: Docusate Sodium (Docusate Sodium 100 Mg Capsule) 100 mg PO BID PRN PRN Reason: CONSTIPATION Last Admin: 10/07/20 08:58 Dose: 100 mg Documented by: Famotidine (Famotidine 20 Mg Tablet) 20 mg PO BID [facility] Last Admin: 10/10/20 17:36 Dose: 20 mg Documented by: Furosemide (Furosemide 10 Mg/Ml Sdv 10ml) 100 mg IVP Q12H [facility] Last Admin: 10/10/20 17:45 Dose: 100 mg Documented by: Gabapentin (Gabapentin 300 Mg Capsule) 300 mg PO BID [facility] Last Admin: 10/10/20 17:36 Dose: 300 mg Documented by: Hydralazine HCl (Hydralazine 50 Mg Tablet) 100 mg PO TID [facility] Last Admin: 10/10/20 14:18 Dose: 100 mg Documented by: Ceftriaxone Sodium 2,000 mg/ (Sodium Chloride) 50 mls @ 100 mls/hr IV Q24H [facility]; Protocol Last Infusion: 10/09/20 20:46 Dose: Infused Documented by: Insulin Aspart (Insulin Aspart 100 Unit/1 Ml) 0 unit SUBCUT WM&BEDTIME [facility]; Protocol Last Admin: 10/10/20 17:36 Dose: 2 unit Documented by: Insulin Glargine (Insulin Glargine 100 Units/1 Ml) 15 unit SUBCUT DAILY [facility] Last Admin: 10/10/20 08:26 Dose: 15 unit Documented by: Isosorbide Mononitrate (Isosorbide Mononitrate Er 60 Mg Tablet) 120 mg PO DAILY [facility] Last Admin: 10/10/20 08:12 Dose: 120 mg Documented by: Labetalol HCl (Labetalol 5 Mg/Ml Sdv 20ml) 10 mg IVP Q4H PRN PRN Reason: HYPERTENSION Last Admin: 10/09/20 18:11 Dose: 10 mg Documented by: Lanolin (Lanolin Oint 7 Gm) 1 applic TOPICAL PRN PRN PRN Reason: DRYNESS Last Admin: 10/06/20 18:12 Dose: 1 applic Documented by: Losartan Potassium (Losartan 50 Mg Tablet) 50 mg PO DAILY [facility] Last Admin: 10/05/20 09:13 Dose: 50 mg Documented by: Metolazone (Metolazone 5 Mg Tablet) 5 mg PO DAILY [facility] Last Admin: 10/10/20 08:13 Dose: 5 mg Documented by: Olanzapine (Olanzapine 5 Mg Tablet) 2.5 mg PO BEDTIME [facility] Last Admin: 10/09/20 20:17 Dose: 2.5 mg Documented by: Ondansetron HCl (Ondansetron 2 Mg/Ml Sdv 2 Ml) 4 mg IVP Q6H PRN PRN Reason: NAUSEA AND VOMITING Senna (Sennosides 8.6 Mg Tablet) 17.2 mg PO BEDTIME [facility] Last Admin: 10/09/20 20:18 Dose: 17.2 mg Documented by: Sevelamer Carbonate (Sevelamer 800 Mg Tablet) 800 mg PO BIDWM [facility] Last Admin: 10/10/20 17:36 Dose: 800 mg Documented by: Tamsulosin HCl (Tamsulosin 0.4 Mg Capsule) 0.8 mg PO BEDTIME [facility] Last Admin: 10/09/20 20:18 Dose: 0.8 mg Documented by: Venlafaxine HCl (Venlafaxine Er (24hr) 150 Mg Capsule) 150 mg PO DAILY [facility] Last Admin: 10/10/20 08:12 Dose: 150 mg Documented by: Vitals/I&O/Wt Last Vital Signs Temp 98.0 F 10/10/20 15:11 Pulse 75 10/10/20 15:11 Resp 14 10/10/20 15:11 BP 147/84 10/10/20 15:11 Pulse Ox 94 10/10/20 15:11 10/10/20 10/10/20 10/10/20 06:59 14:59 22:59 Intake Total 240 / 240 360 / 600 Output Total 2200 / 2200 Balance -1960 / -1960 360 / -1600 Physical Exam Narrative: EXAM NARRATIVE: Intermittent GENERAL: The patient is alert and oriented times three. Not in any acute distress. Morbidly obese. HEENT: Moderate pallor. No icterus. Oral cavity: There are no mucous membrane lesions. NECK: Trachea appears to be central. No masses noted. No JVD or thyromegaly appreciated. No carotid bruit. RESPIRATORY: Chest is symmetrical. No intercostals muscle retraction or any accessory muscle activation. There is no chest wall tenderness. Breath sounds are heard bilaterally. No rales or rhonchi heard. No evidence of any consolidation. BREASTS: Deferred. Sounds are diminished in the bases. HEART: Heart sounds are normal. No S3 or S4 ABDOMEN: Abdomen is obese nontender no organomegaly bowel sounds are normally heard. Dependent edema in the lumbar region : Deferred. RECTAL: Deferred. LYMPHATIC: No lymphadenopathy noted in the neck region. EXTREMITIES: 1+ edema with no cyanosis. MUSCULOSKELETAL: No acute joint deformities or swelling. SKIN: There are no significant scars or skin rash noted. NEUROPSYCHIATRIC: The patient is alert and oriented x3. No acute movements of the upper extremity intermittent jerking movements of the upper extremities Urinary Catheter Management^: Melgar: Cath Placed During This Visit: yes Reason for Continuing Indwelling Catheter: Chronic Indwelling Urinary Catheter on Admission Urinary Catheter Date of Insertion: 09/27/20 Data : 10/10/20 12:20 10/10/20 12:20 Micro: Microbiology 10/04/20 13:44 Blood Culture - Final Blood NO GROWTH AFTER 5 DAYS 10/04/20 13:13 Blood Culture - Final Blood NO GROWTH AFTER 5 DAYS A&P Assessment and plan (1) Acute respiratory failure with hypoxia and hypercapnia: Currently resolved. Patient is back to his baseline. Respiratory status seems to be stable. Status: Acute (2) Acute exacerbation of CHF (congestive heart failure): The heart failure seems to be compensated. Continue on the current medications. Status: Acute Qualifiers: Heart failure type: diastolic Qualified Code(s): I50.33 - Acute on chronic diastolic (congestive) heart failure (3) NSTEMI (non-ST elevated myocardial infarction): Status: Acute (4) Acute kidney injury superimposed on chronic kidney disease: Patient's kidney function slowly getting worse. His hemoglobin also dropped from 8.2-7.9 today. This needs to be further evaluated. Discussed with Dr. Alvarado Status: Acute (5) Obstructive sleep apnea: Continue on the current measures. Status: Acute (6) Diabetes mellitus type 2 in obese: The blood sugar is fairly under control. Status: Acute Additional A&P Information Hypertenion-currently normotensive Anemia-progressive drop in the hemoglobin Hyperkalemia-solved UTI-afebrile Indwelling Melgar catheter Severe SYED Since the patient's overall cardiovascular status seems to be stable, he may not require any specific intervention at this point. Advised to continue the current measures. Attestations Medical Necessity Statement*: Disposition as per the primary Coding Level of Care Code Acute Power Mule Operator for Patricia Fwxiao History Detailed Medical Decision Making Moderate Complexity Diagnoses Acute respiratory failure with hypoxia and hypercapnia J96.01; J96.02 Acute exacerbation of CHF (congestive heart failure) I50.33 Heart failure type: diastolic NSTEMI (non-ST elevated myocardial infarction) I21.4 Acute kidney injury superimposed on chronic kidney disease N17.9; N18.9 Obstructive sleep apnea G47.33 Diabetes mellitus type 2 in obese E11.69; E66.9
[2020-10-10] MEDS: cefTRIAXone 2,000 MG in sodium chloride 0.9% (plus) 50 ML 100 MG IV (19:33)
--- NOTE | 2020-10-10 19:55 | PC.NURSE ---
Bedside report recieved from Yulia CARVAJAL. Patient alert and oriented X 4 laying in bed talking on the phone. questions sought and answered. Will continue to monitor and assist as needed following CPOC
[2020-10-10 20:29] LABS: Glucose Point of Care 178 mg/dL (70-110)
[2020-10-10] MEDS: OLANZapine 5 mg TABLET 2.5 MG PO (21:36)
[2020-10-10] MEDS: tamsulosin 0.4 mg Capsule 0.8 MG PO (21:37)
[2020-10-10] MEDS: sennosides 8.6 mg Tablet 17.2 MG PO (21:37)
[2020-10-10] MEDS: cloNIDine 0.1 mg Tablet 0.3 MG PO (21:45)
[2020-10-10] MEDS: atorvastatin 40 mg Tablet 80 MG PO (21:47)
[2020-10-11] VITALS (13 sets, daily range): BP systolic 135–175; BP diastolic 79–104; PULSE 76–92; RESP 18–26; TEMP 36.6–36.8; O2SAT 90–97
[2020-10-11 04:24] LABS: Basophils # 0.1 10^3/uL (0.0-0.1); Basophils % 0.7 %; Eosinophils # 0.4 10^3/uL (0.0-0.8); Eosinophils % 5.1 %; Hemoglobin 7.8 g/dL (11.7-16.6); Lymphocytes % 12.9 %; Mean Corpuscular HGB Conc 28.9 g/dL (30.0-36.0); Mean Corpuscular Hemoglobin 26.4 pg (28.0-34.0); Mean Corpuscular Volume 91.5 fL (80-94); Mean Platelet Volume 10.8 fL (7.4-10.4); Monocytes # 0.8 10^3/uL (0.2-0.9); Monocytes % 10.5 %; Neutrophils # 5.24 10^3/uL (1.8-7.7); Neutrophils % 70.1 %; Nucleated Red Blood Cells % 0 %; Platelet Count 211 10^3/cmm (130-400); Red Blood Count 2.95 10^6/uL (4.1-5.3); Red Cell Distribution Width 15.4 % (12.1-15.1); White Blood Count 7.5 10^3/uL (4.0-10.0)
[2020-10-11 04:46] LABS: Alanine Aminotransferase 10 U/L (0-41); Alkaline Phosphatase 99 IU/L (40-130); Anion Gap 13.3 (5-19); Aspartate Amino Transferase 13 U/L (0-40); Calcium 8.7 mg/dL (8.5-10.5); Carbon Dioxide 36 mmol/L (22-29); Chloride 102 mmol/L (98-107); Globulin 3.2 g/dL (1.3-4.6); Glomerular Filtration Rate 15.1 mL/min (90-130); Glucose 72 mg/dL (65-115); Magnesium 1.7 mg/dL (1.7-2.3); Osmolality Calculated 327 mOsm/kg (285-295); Potassium 4.3 mmol/L (3.5-5.1); Sodium 147 mmol/L (136-145); Total Bilirubin 0.2 mg/dL (0.15-1.2); Total Protein 6.2 g/dL (6.6-8.7)
[2020-10-11 05:10] LABS: Blood Urea Nitrogen 81 mg/dL (6-20)
[2020-10-11] MEDS: FUROsemide 10 mg/mL SDV 10mL 100 MG IVP ×2 (05:51→17:44)
[2020-10-11 06:51] LABS: Glucose Point of Care 99 mg/dL (70-110)
--- NOTE | 2020-10-11 07:31 | PC.NURSE ---
Bedside report given to Rufino RN and Dawn RN. Patient did well and wore bipap all night long with chin strap in place. Patient very alert and oriented this am. trace to 1 + pitting edema to BLE from mid montero to feet. Diuresis is going well with the 100mL of lasix BID. urine is clear and yellow with over 2500 out on overnight houseperson. Will continue to monitor and assist as needed folllowing CPOC. Provider notified of critical BUN of 89.
[2020-10-11] MEDS: aspirin 81 mg EC Tablet PO (08:14)
[2020-10-11] MEDS: famotidine 20 mg Tablet PO ×2 (08:15→17:36)
[2020-10-11] MEDS: sevelamer 800 mg Tablet PO ×2 (08:15→17:36)
[2020-10-11] MEDS: isosorbide mononitrate ER 60 mg Tablet 120 MG PO (08:15)
[2020-10-11] MEDS: cloNIDine 0.1 mg Tablet 0.3 MG PO ×2 (08:15→20:22)
[2020-10-11] MEDS: hyDRALAzine 50 mg Tablet 100 MG PO ×3 (08:15→20:24)
[2020-10-11] MEDS: venlafaxine ER (24HR) 150 mg Capsule PO (08:16)
[2020-10-11] MEDS: gabapentin 300 mg Capsule PO ×2 (08:16→17:36)
[2020-10-11] MEDS: clopidogrel 75 mg Tablet PO (08:16)
[2020-10-11] MEDS: carvedilol 25 mg Tablet PO ×2 (08:21→20:25)
[2020-10-11] MEDS: metOLazone 5 MG Tablet PO (08:21)
[2020-10-11] MEDS: insulin glargine 100 units/1 mL 15 UNIT SUBCUT (08:35)
[2020-10-11 11:28] LABS: Glucose Point of Care 113 mg/dL (70-110)
[2020-10-11 17:06] LABS: Glucose Point of Care 156 mg/dL (70-110)
--- NOTE | 2020-10-11 17:37 | PM.PN ---
Subjective Subjective: Interval history: Overall he is doing a bit better. He is inquiring about going home. He is requiring 4 L of oxygen by nasal cannula. Prior to Covid was not requiring oxygen. Subsequently we did need 2 L. He is agreeable to await arrangements for CPAP. Denies chest pain. Breathing overall comfortable. Swelling is been coming down in lower extremities. Vitals/I&O/Wt Last Vital Signs Temp 97.9 F 10/11/20 16:00 Pulse 81 10/11/20 16:00 Resp 21 H 10/11/20 16:00 BP 175/92 10/11/20 16:00 Pulse Ox 96 10/11/20 16:00 10/11/20 10/11/20 10/11/20 06:59 14:59 22:59 Intake Total 200 / 1090 340 / 340 Output Total 1700 / 6000 775 / 775 1800 / 2575 Balance -1500 / -4910 -435 / -435 -1800 / -2235 Physical Exam Const: COMMON NORMALS: no acute distress and patient oriented x3 GENERAL APPEARANCE: cooperative and comfortable OTHER: Nasal cannula on HENMT: COMMON NORMALS: oropharynx normal Neck/C-Spine: COMMON NORMALS: no JVD Resp: COMMON NORMALS: normal respiratory effort and clear to auscultation bilaterally AUSCULTATION: clear to auscultation bilaterally Cardio: COMMON NORMALS: no JVD, regular rhythm, S1 normal heart sound present, S2 normal heart sound present and No murmurs present (Cardio) RHYTHM: regular rhythm HEART SOUNDS: S1 normal heart sound present and S2 normal heart sound present GI: COMMON NORMALS: Normal to inspection, nondistended, normoactive bowel sounds present, Soft to palpation and non-tender PALPATION: Yes Soft to palpation Extremity: COMMON NORMALS: no joint enlargement GENERAL: Yes edema (2+) Neuro: COMMON NORMALS: patient oriented x3 and moves all extremities Skin: COMMON NORMALS: no rashes or lesions noted GENERAL SKIN EXAM: no rashes or lesions noted Urinary Catheter Management^: Melgar: Cath Placed During This Visit: yes Reason for Continuing Indwelling Catheter: Accurate Measurement of Urinary Output in Critically Ill Patients Urinary Catheter Date of Insertion: 09/27/20 Data : 10/11/20 04:03 10/11/20 04:03 A&P Assessment and plan (1) Acute respiratory failure with hypoxia and hypercapnia: Requiring 4 L oxygen by nasal cannula. Subjectively he feels okay. Denies chest pain or pressure. Goal for now continue diuresis, he is well in negative balance. Monitor renal function, volume status, MARCOS. Repeat chest x-ray in the morning. He will require oxygen on discharge. Arrangements in progress for NIPPV due to persistent hypoxia. SYED. OHS. Restrictive lung disease. Would refer for follow-up with pulmonology at discharge as well if he will agree. Status: Acute (2) Acute exacerbation of CHF (congestive heart failure): Continue fluid restriction, diuresis. Status: Acute Qualifiers: Heart failure type: diastolic Qualified Code(s): I50.33 - Acute on chronic diastolic (congestive) heart failure (3) Hypertension: Blood pressure is low but better, although still variable. Needs CPAP for sleep apnea. Continue carvedilol, losartan, Flomax, hydralazine, clonidine, diuretics. Status: Acute (4) NSTEMI (non-ST elevated myocardial infarction): Status: Acute (5) Obstructive sleep apnea: Noncompliant with trilogy Status: Acute (6) Diabetes mellitus type 2 in obese: Status: Acute (7) Urinary tract infection: Status: Acute (8) Medical non-compliance: Status: Acute (9) Toxic metabolic encephalopathy: Improved Status: Acute (10) Obesity hypoventilation syndrome: Status: Acute (11) Morbid obesity with BMI of 40.0-44.9, adult: Status: Acute (12) Anasarca: Status: Acute (13) Chronic kidney disease, stage IV (severe): Status: Acute Attestations Medical Necessity Statement*: Continue admission for assessment of CHF, arrangements for home NIPPV due to recurrent/persistent hypoxia, monitoring and optimization of blood control hypertension. Coding Level of Care Code Acute Graphite Pan Drier Tender for [facility] Fwd Exam Comprehensive Diagnoses Acute respiratory failure with hypoxia and hypercapnia J96.01; J96.02 Acute exacerbation of CHF (congestive heart failure) I50.33 Heart failure type: diastolic Hypertension I10 NSTEMI (non-ST elevated myocardial infarction) I21.4 Obstructive sleep apnea G47.33 Diabetes mellitus type 2 in obese E11.69; E66.9 Urinary tract infection N39.0 Medical non-compliance Z91.19 Toxic metabolic encephalopathy G92 Obesity hypoventilation syndrome E66.2 Morbid obesity with BMI of 40.0-44.9, adult E66.01; Z68.41 Anasarca R60.1 Chronic kidney disease, stage IV (severe) N18.4
--- NOTE | 2020-10-11 17:43 | P.PN_ITS ---
Subjective Subjective: Interval history: He feels better today. He was seen sitting in his bed. No events on telemetry. Length of stay -17.5 L Medications: Reviewed: Yes Vitals/I&O/Wt Last Vital Signs Temp 97.9 F 10/11/20 16:00 Pulse 81 10/11/20 16:00 Resp 21 H 10/11/20 16:00 BP 175/92 10/11/20 16:00 Pulse Ox 96 10/11/20 16:00 10/11/20 10/11/20 10/11/20 06:59 14:59 22:59 Intake Total 200 / 1090 340 / 340 1100 / 1440 Output Total 1700 / 6000 775 / 775 1800 / 2575 Balance -1500 / -4910 -435 / -435 -700 / -1135 Physical Exam Narrative: EXAM NARRATIVE: Gen: morbidly obese man lying in bed in NAD, currently on ~4 L of home oxygen HEENT: PEERL, EOMI Neck: Short thick neck, tough to appreciate JVD RS: decreased air entry bilaterally CVS: S1, S2, No murmur, rub or gallop appreciated. PA: obese, firm, NT, No abdominal wall edema noted. Ext: 3+ edema extending above knees, No cyanosis Urinary Catheter Management^: Melgar: Cath Placed During This Visit: yes Reason for Continuing Indwelling Catheter: Accurate Measurement of Urinary Output in Critically Ill Patients Urinary Catheter Date of Insertion: 09/27/20 Data : 10/11/20 04:03 10/11/20 04:03 A&P Assessment and plan (1) Acute respiratory failure with hypoxia and hypercapnia: Resolved Status: Acute (2) Acute exacerbation of CHF (congestive heart failure): HFpEF and mild RV dysfunction. -significantly overloaded. -continue lasix to 100 mg IV Q12h and metolazone for another day. -Possibly transition to Lasix 100 mg PO twice daily -I/O charting and daily weight. -Fluid restriction to 1500 ml Status: Acute Qualifiers: Heart failure type: diastolic Qualified Code(s): I50.33 - Acute on chronic diastolic (congestive) heart failure (3) NSTEMI (non-ST elevated myocardial infarction): I am not convinced we are dealing with Type 1 NSTEMI here. -Patient was hypoxic at home with oxygen saturation in high 70's and in low 80's in ER and is currently decompensated with CHF. -May continue to treat medically for now with ASA, plavix, statin and beta jag for now. -off heparin gtt. -No CP as per patient. -Not a good candidate for LHC at this point given high risk of KINJAL and subsequent need for dialysis. He is CP free and stable. -On discharge, I think he would be better served continuing ASA only and stopping plavix. Status: Acute (4) Acute kidney injury superimposed on chronic kidney disease: Hold losartan for now. Status: Acute (5) Obstructive sleep apnea: Status: Acute (6) Diabetes mellitus type 2 in obese: Status: Acute Additional A&P Information Hypertenion Anemia Hyperkalemia UTI Indwelling Melgar catheter for last 2 weeks Severe SYED Attestations Medical Necessity Statement*: As per primary team Time Spent in Patient Care: 16 - 35 minutes (>than 50% of time spent in counselling and/or direct pt care on unit) . Coding Level of Care Code Acute Asphalt Spreader Operator for Patricia Reid Diagnoses Acute respiratory failure with hypoxia and hypercapnia J96.01; J96.02 Acute exacerbation of CHF (congestive heart failure) I50.33 Heart failure type: diastolic NSTEMI (non-ST elevated myocardial infarction) I21.4 Acute kidney injury superimposed on chronic kidney disease N17.9; N18.9 Obstructive sleep apnea G47.33 Diabetes mellitus type 2 in obese E11.69; E66.9
[2020-10-11] MEDS: atorvastatin 40 mg Tablet 80 MG PO (20:22)
[2020-10-11] MEDS: cefTRIAXone 2,000 MG in sodium chloride 0.9% (plus) 50 ML 200 MG IV (20:23)
[2020-10-11] MEDS: sennosides 8.6 mg Tablet 17.2 MG PO (20:25)
[2020-10-11] MEDS: OLANZapine 5 mg TABLET 2.5 MG PO (20:25)
[2020-10-11] MEDS: tamsulosin 0.4 mg Capsule 0.8 MG PO (20:25)
[2020-10-11 20:53] LABS: Glucose Point of Care 173 mg/dL (70-110)
[2020-10-12] VITALS (16 sets, daily range): BP systolic 147–179; BP diastolic 77–101; PULSE 76–95; RESP 9–26; TEMP 36.6–36.9; O2SAT 91–97
[2020-10-12] MEDS: labetalol 5 mg/mL SDV 20mL 10 MG IVP (01:09)
[2020-10-12 05:01] LABS: Basophils # 0.1 10^3/uL (0.0-0.1); Basophils % 0.7 %; Eosinophils # 0.3 10^3/uL (0.0-0.8); Eosinophils % 4.2 %; Hematocrit 28.8 % (42.0-52.0); Hemoglobin 8.3 g/dL (11.7-16.6); Lymphocytes # 0.9 10^3/uL (0.8-4.8); Lymphocytes % 10.6 %; Mean Corpuscular HGB Conc 28.8 g/dL (30.0-36.0); Mean Corpuscular Hemoglobin 26.4 pg (28.0-34.0); Mean Corpuscular Volume 91.7 fL (80-94); Mean Platelet Volume 10.7 fL (7.4-10.4); Monocytes # 0.8 10^3/uL (0.2-0.9); Monocytes % 9.8 %; Neutrophils % 74.1 %; Nucleated Red Blood Cells % 0 %; Platelet Count 192 10^3/cmm (130-400); Red Blood Count 3.14 10^6/uL (4.1-5.3); Red Cell Distribution Width 15.3 % (12.1-15.1); White Blood Count 8.1 10^3/uL (4.0-10.0)
[2020-10-12 05:14] LABS: Alanine Aminotransferase 9 U/L (0-41); Albumin Level 2.9 g/dL (3.5-5.2); Alkaline Phosphatase 91 IU/L (40-130); Anion Gap 14.3 (5-19); Aspartate Amino Transferase 11 U/L (0-40); Blood Urea Nitrogen 80 mg/dL (6-20); Calcium 8.6 mg/dL (8.5-10.5); Carbon Dioxide 34 mmol/L (22-29); Chloride 99 mmol/L (98-107); Globulin 3.3 g/dL (1.3-4.6); Glomerular Filtration Rate 17.5 mL/min (90-130); Glucose 101 mg/dL (65-115); Magnesium 1.5 mg/dL (1.7-2.3); Osmolality Calculated 320 mOsm/kg (285-295); Potassium 4.3 mmol/L (3.5-5.1); Sodium 143 mmol/L (136-145); Total Bilirubin 0.2 mg/dL (0.15-1.2); Total Protein 6.2 g/dL (6.6-8.7)
--- NOTE | 2020-10-12 06:00 | XR_ITS ---
WS: [id number] XR chest 1V portable [id number] REASON FOR EXAM: Hypoxia FINDINGS: The chest is unchanged compared to 10/04/2020 with marked cardiomegaly. There is central vascular conge stion. Lungs are mildly hypoexpanded. No definite pulmonary parenchymal or pleural abnormality is identified. XR/XR chest 1V portable [id number] IMPRESSION: Stable significant cardiomegaly with no definite acute abnormality identified.
[2020-10-12] MEDS: FUROsemide 10 mg/mL SDV 10mL 100 MG IVP ×2 (06:22→17:15)
[2020-10-12] MEDS: saline nasal spray 44mL Btl 1 SPRAY NASAL (06:22)
[2020-10-12 06:38] LABS: Glucose Point of Care 128 mg/dL (70-110)
[2020-10-12] MEDS: hyDRALAzine 50 mg Tablet 100 MG PO ×3 (08:13→21:00)
[2020-10-12] MEDS: venlafaxine ER (24HR) 150 mg Capsule PO (08:13)
[2020-10-12] MEDS: sevelamer 800 mg Tablet PO ×2 (08:13→17:15)
[2020-10-12] MEDS: aspirin 81 mg EC Tablet PO (08:13)
[2020-10-12] MEDS: isosorbide mononitrate ER 60 mg Tablet 120 MG PO (08:13)
[2020-10-12] MEDS: gabapentin 300 mg Capsule PO ×2 (08:13→17:15)
[2020-10-12] MEDS: metOLazone 5 MG Tablet PO (08:13)
[2020-10-12] MEDS: cloNIDine 0.1 mg Tablet 0.3 MG PO ×2 (08:13→20:39)
[2020-10-12] MEDS: clopidogrel 75 mg Tablet PO (08:13)
[2020-10-12] MEDS: insulin glargine 100 units/1 mL 15 UNIT SUBCUT (08:14)
[2020-10-12] MEDS: famotidine 20 mg Tablet PO ×2 (08:14→17:15)
[2020-10-12] MEDS: carvedilol 25 mg Tablet PO ×2 (08:18→21:07)
--- NOTE | 2020-10-12 09:30 | PM.PN ---
Subjective Subjective: Interval history: He feels better today and is eager to go home. He was seen sitting in his bed. No events on telemetry. UO 6.4 L last 24 hr, Length of stay -22 L Medications: Reviewed: Yes Vitals/I&O/Wt Last Vital Signs Temp 98.0 F 10/12/20 07:11 Pulse 80 10/12/20 08:48 Resp 16 10/12/20 08:48 BP 169/90 10/12/20 08:13 Pulse Ox 94 10/12/20 08:48 10/11/20 10/12/20 10/12/20 22:59 06:59 14:59 Intake Total 1150 / 1490 200 / 1690 Output Total 2250 / 3025 3100 / 6125 1100 / 1100 Balance -1100 / -1535 -2900 / -4435 -1100 / -1100 Physical Exam Narrative: EXAM NARRATIVE: Gen: morbidly obese man lying in bed in NAD, currently on ~4 L of home oxygen HEENT: PEERL, EOMI Neck: Short thick neck, tough to appreciate JVD RS: decreased air entry bilaterally CVS: S1, S2, No murmur, rub or gallop appreciated. PA: obese, firm, NT, No abdominal wall edema noted. Ext: 1-2+ edema extending till knees, No cyanosis. erythema improved Urinary Catheter Management^: Melgar: Cath Placed During This Visit: yes Reason for Continuing Indwelling Catheter: Accurate Measurement of Urinary Output in Critically Ill Patients Urinary Catheter Date of Insertion: 09/27/20 Data : 10/12/20 04:08 10/12/20 04:08 A&P Assessment and plan (1) Acute respiratory failure with hypoxia and hypercapnia: Resolved Status: Acute (2) Acute exacerbation of CHF (congestive heart failure): HFpEF and mild RV dysfunction. -change to lasix 100 mg PO BID and continue metolazone. -I/O charting and daily weight. -Fluid restriction to 1500 ml Status: Acute Qualifiers: Heart failure type: diastolic Qualified Code(s): I50.33 - Acute on chronic diastolic (congestive) heart failure (3) NSTEMI (non-ST elevated myocardial infarction): I am not convinced we are dealing with Type 1 NSTEMI here. -Patient was hypoxic at home with oxygen saturation in high 70's and in low 80's in ER and is currently decompensated with CHF. -May continue to treat medically for now with ASA, plavix, statin and beta jag for now. -off heparin gtt. -No CP as per patient. -Not a good candidate for LHC at this point given high risk of KINJAL and subsequent need for dialysis. He is CP free and stable. -On discharge, I think he would be better served continuing ASA only and stopping plavix. Status: Acute (4) Acute kidney injury superimposed on chronic kidney disease: Hold losartan for now. May resume in a day or two. Status: Acute (5) Obstructive sleep apnea: Status: Acute (6) Diabetes mellitus type 2 in obese: Status: Acute Additional A&P Information Hypertenion: BP still significantly elevated. Anemia Hyperkalemia UTI Indwelling Melgar catheter Severe SYED Attestations Medical Necessity Statement*: As per primary team Time Spent in Patient Care: 16 - 35 minutes (>than 50% of time spent in counselling and/or direct pt care on unit). Coding Level of Care Code Acute Preschool Teacher'S Assistant for Patricia Reid Diagnoses Acute respiratory failure with hypoxia and hypercapnia J96.01; J96.02 Acute exacerbation of CHF (congestive heart failure) I50.33 Heart failure type: diastolic NSTEMI (non-ST elevated myocardial infarction) I21.4 Acute kidney injury superimposed on chronic kidney disease N17.9; N18.9 Obstructive sleep apnea G47.33 Diabetes mellitus type 2 in obese E11.69; E66.9
[2020-10-12] MEDS: magnesium sulfate premix 2 GM/50 ML PIGGYBACK IV (10:42)
[2020-10-12 11:39] LABS: Glucose Point of Care 166 mg/dL (70-110)
[2020-10-12] MEDS: acetaminophen 325 mg Tablet 650 MG PO (15:11)
[2020-10-12 16:41] LABS: Glucose Point of Care 136 mg/dL (70-110)
[2020-10-12] MEDS: cefTRIAXone 2,000 MG in sodium chloride 0.9% (plus) 50 ML 200 MG IV (20:37)
[2020-10-12] MEDS: atorvastatin 40 mg Tablet 80 MG PO (20:40)
[2020-10-12] MEDS: sennosides 8.6 mg Tablet 17.2 MG PO (20:40)
[2020-10-12] MEDS: OLANZapine 5 mg TABLET 2.5 MG PO (20:41)
[2020-10-12] MEDS: tamsulosin 0.4 mg Capsule 0.8 MG PO (20:42)
[2020-10-12 20:47] LABS: Glucose Point of Care 210 mg/dL (70-110)
--- NOTE | 2020-10-12 21:17 | P.PN_ITS ---
Subjective Subjective: Interval history: Today he reports he is doing all right. Denies chest pain. He has been getting up with physical therapy. Trying to get up on his own as well. Vitals/I&O/Wt Last Vital Signs Temp 98.2 F 10/12/20 15:41 Pulse 83 10/12/20 20:34 Resp 18 10/12/20 20:27 BP 147/91 10/12/20 20:39 Pulse Ox 97 10/12/20 20:34 10/12/20 10/12/20 10/12/20 06:59 14:59 22:59 Intake Total 200 / 1690 170 / 170 360 / 530 Output Total 3100 / 6125 1100 / 1100 1380 / 2480 Balance -2900 / -4435 -930 / -930 -1020 / -1950 Physical Exam Const: COMMON NORMALS: no acute distress and patient oriented x3 GENERAL APPEARANCE: cooperative and comfortable OTHER: Nasal cannula on HENMT: COMMON NORMALS: oropharynx normal Neck/C-Spine: COMMON NORMALS: no JVD Resp: COMMON NORMALS: normal respiratory effort and clear to auscultation bilaterally AUSCULTATION: clear to auscultation bilaterally Cardio: COMMON NORMALS: no JVD, regular rhythm, S1 normal heart sound present, S2 normal heart sound present and No murmurs present (Cardio) RHYTHM: regular rhythm HEART SOUNDS: S1 normal heart sound present and S2 normal heart sound present GI: COMMON NORMALS: Normal to inspection, nondistended, normoactive bowel sounds present, Soft to palpation and non-tender PALPATION: Yes Soft to palpation Extremity: COMMON NORMALS: no joint enlargement GENERAL: Yes edema (2+, improving) Neuro: COMMON NORMALS: patient oriented x3 and moves all extremities Skin: COMMON NORMALS: no rashes or lesions noted GENERAL SKIN EXAM: no rashes or lesions noted Urinary Catheter Management^: Melgar: Cath Placed During This Visit: yes Reason for Continuing Indwelling Catheter: Accurate Measurement of Urinary Output in Critically Ill Patients Urinary Catheter Date of Insertion: 09/27/20 Data : 10/12/20 04:08 10/12/20 04:08 A&P Assessment and plan (1) Acute respiratory failure with hypoxia and hypercapnia: Transitioning to oral Lasix. Continue metolazone. Has diuresed quite well. Continue oxygen support. Wean down as tolerating. Pending arrangements for NIPPV which he needs due to persistent hypoxia, SYED, OHS, restrictive lung disease, CHF. He will require oxygen on discharge. Would refer for follow-up with pulmonology at discharge. He is agreeable. Status: Acute (2) Acute exacerbation of CHF (congestive heart failure): Continue fluid restriction, diuresis. Switch to oral Lasix. Appreciate cardiology recommendations. Status: Acute Qualifiers: Heart failure type: diastolic Qualified Code(s): I50.33 - Acute on chronic diastolic (congestive) heart failure (3) Hypertension: Blood pressure is low but better, although still variable. Needs CPAP for sleep apnea. Continue carvedilol, losartan, Flomax, hydralazine, clonidine, diuretics. Status: Acute (4) NSTEMI (non-ST elevated myocardial infarction): On discharge continue aspirin, statin, beta-jag. Status: Acute (5) Obstructive sleep apnea: Discussed with importance of compliance, and he states understanding, and that he is going to use his machine due to persistent hypoxia, a number of underlying lung conditions. Discussed with him also regarding benefit of weight loss, and he will be working with his primary care provider regarding options to help him achieve this. Status: Acute (6) Diabetes mellitus type 2 in obese: Status: Acute (7) Urinary tract infection: Completed course. Stop antibiotic. Status: Acute (8) Medical non-compliance: Status: Acute (9) Toxic metabolic encephalopathy: Improved Status: Acute (10) Obesity hypoventilation syndrome: Status: Acute (11) Morbid obesity with BMI of 40.0-44.9, adult: Status: Acute (12) Anasarca: Status: Acute (13) Chronic kidney disease, stage IV (severe): Status: Acute Attestations Medical Necessity Statement*: Continue to optimize management of CHF, transition to oral diuretics, continue attempts to wean off oxygen support, continue arrangements for CPAP after discharge due to multiple conditions contributing to persistent hypoxia. Tentative plan for discharge tomorrow. Coding Level of Care Code Acute Resource Conservation Specialist for Patricia Austind Exam Comprehensive Diagnoses Acute respiratory failure with hypoxia and hypercapnia J96.01; J96.02 Acute exacerbation of CHF (congestive heart failure) I50.33 Heart failure type: diastolic Hypertension I10 NSTEMI (non-ST elevated myocardial infarction) I21.4 Obstructive sleep apnea G47.33 Diabetes mellitus type 2 in obese E11.69; E66.9 Urinary tract infection N39.0 Medical non-compliance Z91.19 Toxic metabolic encephalopathy G92 Obesity hypoventilation syndrome E66.2 Morbid obesity with BMI of 40.0-44.9, adult E66.01; Z68.41 Anasarca R60.1 Chronic kidney disease, stage IV (severe) N18.4
[2020-10-13] VITALS (12 sets, daily range): BP systolic 148–197; BP diastolic 76–96; PULSE 76–88; RESP 17–32; TEMP 36.6–37.2; O2SAT 85–99
[2020-10-13 04:52] LABS: Basophils # 0.1 10^3/uL (0.0-0.1); Basophils % 0.8 %; Eosinophils # 0.3 10^3/uL (0.0-0.8); Eosinophils % 4.4 %; Hemoglobin 7.9 g/dL (11.7-16.6); Lymphocytes # 0.8 10^3/uL (0.8-4.8); Lymphocytes % 11.1 %; Mean Corpuscular HGB Conc 29.3 g/dL (30.0-36.0); Mean Corpuscular Hemoglobin 26.5 pg (28.0-34.0); Mean Corpuscular Volume 90.6 fL (80-94); Mean Platelet Volume 10.9 fL (7.4-10.4); Monocytes # 0.8 10^3/uL (0.2-0.9); Monocytes % 10.4 %; Neutrophils # 5.47 10^3/uL (1.8-7.7); Neutrophils % 72.8 %; Nucleated Red Blood Cells % 0 %; Platelet Count 190 10^3/cmm (130-400); Red Blood Count 2.98 10^6/uL (4.1-5.3); White Blood Count 7.5 10^3/uL (4.0-10.0)
[2020-10-13 05:11] LABS: Alanine Aminotransferase 10 U/L (0-41); Albumin Level 2.9 g/dL (3.5-5.2); Alkaline Phosphatase 91 IU/L (40-130); Anion Gap 14.9 (5-19); Aspartate Amino Transferase 11 U/L (0-40); Calcium 8.9 mg/dL (8.5-10.5); Carbon Dioxide 36 mmol/L (22-29); Chloride 98 mmol/L (98-107); Globulin 3.5 g/dL (1.3-4.6); Glomerular Filtration Rate 16.4 mL/min (90-130); Glucose 111 mg/dL (65-115); Magnesium 1.8 mg/dL (1.7-2.3); Osmolality Calculated 326 mOsm/kg (285-295); Potassium 3.9 mmol/L (3.5-5.1); Sodium 145 mmol/L (136-145); Total Bilirubin 0.2 mg/dL (0.15-1.2); Total Protein 6.4 g/dL (6.6-8.7)
[2020-10-13 05:14] LABS: Blood Urea Nitrogen 84 mg/dL (6-20)
[2020-10-13 06:37] LABS: Glucose Point of Care 122 mg/dL (70-110)
--- NOTE | 2020-10-13 08:14 | PM.PN ---
Subjective Subjective: Interval history: He feels better today and is eager to go home. He was seen sitting in his bed. No events on telemetry. UO 4.8 L last 24 hr, Length of stay -24 L. Nose bleed today Medications: Reviewed: Yes Vitals/I&O/Wt Last Vital Signs Temp 98.5 F 10/13/20 07:28 Pulse 83 10/13/20 07:28 Resp 20 H 10/13/20 07:28 BP 180/96 10/13/20 07:28 Pulse Ox 97 10/13/20 07:28 10/12/20 10/13/20 10/13/20 22:59 06:59 14:59 Intake Total 760 / 930 Output Total 2580 / 3680 1100 / 4780 Balance -1820 / -2750 -1100 / -3850 Weight last 48 hrs Weight 320 lb Weight 319 lb 8 oz Physical Exam Narrative: EXAM NARRATIVE: Gen: morbidly obese man lying in bed in NAD, currently on ~4 L of home oxygen HEENT: PEERL, EOMI Neck: Short thick neck, tough to appreciate JVD RS: decreased air entry bilaterally CVS: S1, S2, No murmur, rub or gallop appreciated. PA: obese, firm, NT, No abdominal wall edema noted. Ext: 1+ edema extending till knees, No cyanosis. erythema improved Urinary Catheter Management^: Melgar: Cath Placed During This Visit: yes Reason for Continuing Indwelling Catheter: Chronic Indwelling Urinary Catheter on Admission Urinary Catheter Date of Insertion: 09/27/20 Data : 10/13/20 04:13 10/13/20 04:13 A&P Assessment and plan (1) Acute respiratory failure with hypoxia and hypercapnia: Resolved Status: Acute (2) Acute exacerbation of CHF (congestive heart failure): HFpEF and mild RV dysfunction. -change to lasix 100 mg PO BID and continue metolazone. -I/O charting and daily weight. -Fluid restriction to 1500 ml Stable to be discharged. -Follow up in 2 weeks with me in [facility] in 1 week Status: Acute Qualifiers: Heart failure type: diastolic Qualified Code(s): I50.33 - Acute on chronic diastolic (congestive) heart failure (3) NSTEMI (non-ST elevated myocardial infarction): I am not convinced we are dealing with Type 1 NSTEMI here. -Patient was hypoxic at home with oxygen saturation in high 70's and in low 80's in ER and is currently decompensated with CHF. -May continue to treat medically for now with ASA, statin and beta jag for now. -off heparin gtt. -No CP as per patient. -Not a good candidate for LHC at this point given high risk of KINJAL and subsequent need for dialysis. He is CP free and stable. -D/c plavix. Status: Acute (4) Acute kidney injury superimposed on chronic kidney disease: Hold losartan for now. May resume in a day or two. Status: Acute (5) Obstructive sleep apnea: Status: Acute (6) Diabetes mellitus type 2 in obese: Status: Acute Additional A&P Information Hypertenion: BP still significantly elevated. Anemia Hyperkalemia UTI Indwelling Melgar catheter Severe SYED Attestations Medical Necessity Statement*: As per primary team Time Spent in Patient Care: 16 - 35 minutes (>than 50% of time spent in counselling and/or direct pt care on unit). Coding Level of Care Code Acute Display Decorator for Patricia Reid Diagnoses Acute respiratory failure with hypoxia and hypercapnia J96.01; J96.02 Acute exacerbation of CHF (congestive heart failure) I50.33 Heart failure type: diastolic NSTEMI (non-ST elevated myocardial infarction) I21.4 Acute kidney injury superimposed on chronic kidney disease N17.9; N18.9 Obstructive sleep apnea G47.33 Diabetes mellitus type 2 in obese E11.69; E66.9
[2020-10-13] MEDS: venlafaxine ER (24HR) 150 mg Capsule PO (08:34)
[2020-10-13] MEDS: clopidogrel 75 mg Tablet PO (08:34)
[2020-10-13] MEDS: FUROsemide 40 mg Tablet 100 MG PO ×2 (08:34→15:37)
[2020-10-13] MEDS: famotidine 20 mg Tablet PO (08:35)
[2020-10-13] MEDS: gabapentin 300 mg Capsule PO (08:35)
[2020-10-13] MEDS: hyDRALAzine 50 mg Tablet 100 MG PO ×2 (08:35→15:37)
[2020-10-13] MEDS: isosorbide mononitrate ER 60 mg Tablet 120 MG PO (08:35)
[2020-10-13] MEDS: sevelamer 800 mg Tablet PO (08:35)
[2020-10-13] MEDS: metOLazone 5 MG Tablet PO (08:35)
[2020-10-13] MEDS: carvedilol 25 mg Tablet PO (08:35)
[2020-10-13] MEDS: aspirin 81 mg EC Tablet PO (08:35)
[2020-10-13] MEDS: cloNIDine 0.1 mg Tablet 0.3 MG PO (08:36)
[2020-10-13] MEDS: docusate sodium 100 mg Capsule PO (08:36)
--- NOTE | 2020-10-13 08:50 | PC.CHAP ---
Pastoral Care Encounter/Spiritual Assessment Type of Contact [] Declined welfare case worker visit [] Patient/Family/Request visit [] Outpatient visit [] Follow-up visit [] Physician referral [] Code/Alert [x] Routine visit [] Staff referral [] Actively dying [] Patient sleeping [] Family support [] [] Out of room [] Palliative care [] [] Receiving care in room [] Pre-surgical visit [] Trauma [] Long length of stay [] ICU visit [] Other: Relational/Emotional Strength [x] Patient feels connected with others/family/visitors/staff [] Distress [] Loneliness/isolation [] Abandonment Spirituality of Patient [] Person of Lizabeth [] Attends Nondenominational of their Lizabeth [x] Believes in Prayer [] Reads Bible or Alevism materials [] There are Spiritual issues to be addressed Clinic Supervisor Interventions [x] Prayer [x] Active listening [x] Non-anxious presence [x] Spiritual/emotional support [] Crisis/trauma care [] Spiritual counseling [] Bereavement support [] Provided bereavement packet [] Provided Bible/devotional materials [] Provided toy/stuffed animal, coloring book to patient or family member [] Provided Communion [] Anointing/[facility] [] Salvation [x] Completed spiritual assessment [] Other: Impact on Illness or Injury [] Angry [] Fearful [] Anxious [] Often cries [] Exhaustion [x] Unable to work [] Unable to attend tenriism [] Unable to walk/stand [] Unable to read [] Unable to drive [] Unable to eat/drink [] Unable to sleep [] Unable to be with family [] Patient intubated [] Other: Summary Pt has been in hospital and rehab since 08/19/20. Began with Covid but due to other health issues his recovering has been impacted. He has strong family support outside the hospital and is thankful they have been there for him. He is hoping he will be discharged today and is looking forward to going home! Time spent with patient 15m
[2020-10-13 11:31] LABS: Glucose Point of Care 162 mg/dL (70-110)
--- NOTE | 2020-10-13 20:43 | P.DS_ITS ---
Discharge Providers Date of Admission: 10/04/20 17:12 Date of Discharge: October 13, 2020 Attending Provider at Admission: Rodney Alvarado MD Attending Provider at Discharge: Frederick Barclay Primary Care Provider: Sulma Wetzel MD Diagnoses at Discharge Discharge Diagnosis (1) Acute respiratory failure with hypoxia and hypercapnia: Status: Acute (2) Acute exacerbation of CHF (congestive heart failure): Status: Acute Qualifiers: Heart failure type: diastolic Qualified Code(s): I50.33 - Acute on chronic diastolic (congestive) heart failure (3) NSTEMI (non-ST elevated myocardial infarction): Status: Acute (4) Acute kidney injury superimposed on chronic kidney disease: Status: Acute (5) Obstructive sleep apnea: Status: Acute (6) Diabetes mellitus type 2 in obese: Status: Acute Reason for Visit Reason for Visit: SHORT OF BREATH Hospital Course Hospital Course Patient presented encephalopathic with evidence of acute respiratory failure and CHF exacerbation. He has non-ST elevation ID felt to be of type II. He appeared to have UTI which likely contributed to his encephalopathy. He was admitted and treated with antibiotic and diuresed aggressively. He gradually improved and this morning reports feeling much better and adamantly wants to go home. He is not interested in nursing facility placement. He does not want to stay in the hospital until CPAP or BiPAP can be arranged through insurance company. I had extensive discussion with patient today regarding importance of medical compliance and regarding importance of fluid restriction if he notices bilateral lower extremity swelling and shortness of breath. Patient voiced understanding. I am concerned regarding medical compliance therefore I will r [facility] to see patient post discharge to make sure he is doing okay. Patient to keep Melgar catheter in until he sees Dr. Oliva. [facility] to change Melgar catheter every 30 days since last placement. Outpatient follow-up with Dr. Smith as well as Dr. Kendrick and Dr. Conrad will be requested. Patient's blood pressure remains quite elevated therefore I will continue clonidine and amlodipine. I will increase Bumex to twice daily. We will discontinue alprazolam as he is at very high risk of getting sedated compromising cardiopulmonary status. We will perform home O2 eval prior to discharge. Patient uses 4 L at home. He saturating 94% at 4 L this morning. He denies shortness of breath or chest pain this morning. His appetite and oral intake are good. He urinates well. Due to persistent hypoxia his hospitalization was prolonged, requiring arrangements for BiPAP at discharge which he needs due to OHS, restrictive lung disease, CHF, SYED. His volume status continue to improve. Oxygenation remained stable. He was approved for BiPAP and this is arranged for him, however, he elected to return home today, and so this will be delivered to his home. Today he also had an episode of nasal bleed. Per discussion with cardiology Plavix is discontinued and he will continue only on low-dose aspirin. He was counseled on what to do in case bleeding recurs, as well as if recurring, asked to seek additional evaluation with his primary care provider and ENT. We also requested a humidifier for his oxygen for home. Physical Exam Const: COMMON NORMALS: no acute distress and patient oriented x3 GENERAL APPEARANCE: cooperative and comfortable OTHER: Nasal cannula on. He is awake, alert, in good spirits. Reports he is feeling much better. Reports he has been getting up and walking. Epistaxis has resolved. Request to be discharged home. HENMT: COMMON NORMALS: oropharynx normal Neck/C-Spine: COMMON NORMALS: no JVD Resp: COMMON NORMALS: normal respiratory effort and clear to auscultation bilaterally AUSCULTATION: clear to auscultation bilaterally Cardio: COMMON NORMALS: no JVD, regular rhythm, S1 normal heart sound present, S2 normal heart sound present and No murmurs present (Cardio) RHYTHM: regular rhythm HEART SOUNDS: S1 normal heart sound present and S2 normal heart sound present GI: COMMON NORMALS: Normal to inspection, nondistended, normoactive bowel sounds present, Soft to palpation and non-tender PALPATION: Yes Soft to palpation Extremity: COMMON NORMALS: no joint enlargement GENERAL: Yes edema (1+, improving) Neuro: COMMON NORMALS: patient oriented x3 and moves all extremities Skin: COMMON NORMALS: no rashes or lesions noted GENERAL SKIN EXAM: no rashes or lesions noted Urinary Catheter Management^: Melgar: Cath Placed During This Visit: yes Reason for Continuing Indwelling Catheter: Chronic Indwelling Urinary Catheter on Admission Urinary Catheter Date of Insertion: 09/27/20 Discharge Data Data Completed and Pending: Completed Studies During Hospitalization Category Date Time Status XR chest 1V jonas ble [id number] Routine Exams 10/12/20 06:00 Completed XR chest 1V jonas ble [id number] Stat Exams 10/04/20 13:09 Completed CV echo lmt wo/w contras [id number] Rout ine Ultrasound 10/05/20 05:00 Completed US/CV paperwork R outine Ultrasound 10/05/20 14:21 Completed Labs from last 24 hours 10/13/20 10/13/20 10/13/20 11:20 06:33 04:13 WBC RBC Hgb Hct MCV MCH MCHC RDW Plt Count MPV Neut % (Auto) Lymph % (Auto) [place] % (Auto) Eos % (Auto) Baso % (Auto) Neut # (Auto) Lymph # (Auto) [place] # (Auto) Eos # (Auto) Baso # (Auto) Nucleated RBC % (a uto) Nucleated RBCs # Sodium 145 Potassium 3.9 Chloride 98 Carbon Dioxide 36 H Anion Gap 14.9 BUN 84 H* Creatinine 3.9 H GFR Calculation 16.4 L Glucose 111 POC Glucose 162 H 122 H Calculated Osmolal ity 326 H Calcium 8.9 Magnesium 1.8 Total Bilirubin 0.2 AST 11 ALT 10 Alkaline Phosphata se 91 Total Protein 6.4 L Albumin 2.9 L Globulin 3.5 10/13/20 10/12/20 04:13 20:38 WBC 7.5 RBC 2.98 L Hgb 7.9 L Hct 27.0 L MCV 90.6 MCH 26.5 L MCHC 29.3 L RDW 15.0 Plt Count 190 MPV 10.9 H Neut % (Auto) 72.8 Lymph % (Auto) 11.1 [place] % (Auto) 10.4 Eos % (Auto) 4.4 Baso % (Auto) 0.8 Neut # (Auto) 5.47 Lymph # (Auto) 0.8 [place] # (Auto) 0.8 Eos # (Auto) 0.3 Baso # (Auto) 0.1 Nucleated RBC % (a uto) 0 Nucleated RBCs # 0.0 Sodium Potassium Chloride Carbon Dioxide Anion Gap BUN Creatinine GFR Calculation Glucose POC Glucose 210 H Calculated Osmolal ity Calcium Magnesium Total Bilirubin AST ALT Alkaline Phosphata se Total Protein Albumin Globulin Vitals: Last Vital Signs Temp 98.9 F 10/13/20 16:18 Pulse 85 10/13/20 16:18 Resp 20 H 10/13/20 16:18 BP 156/77 10/13/20 16:18 Pulse Ox 95 10/13/20 16:18 Discharge Plan Discharge Patient Disposition: Home Condition: Stable Prescriptions: New olanzapine 5 mg Tablet 2.5 mg PO BEDTIME Qty: 30 RF: 0 hydralazine 50 mg Tablet 100 mg PO TID Qty: 90 RF: 0 Protonix 40 mg tablet,delayed release (DR/EC) 40 mg PO BID 28 Days Qty: 30 RF: 0 metolazone 5 mg Tablet 5 mg PO DAILY Qty: 30 RF: 0 Saline Mist 0.65 % Aerosol,[place] 1 spray nasal PRN PRN (Reason: Dryness) Qty: 50 RF: 0 Continued Lantus U-100 Insulin 100 unit/mL solution 15 unit SUBCUT DAILY RF: 0 aspirin 81 mg Tablet,Delayed Release (Dr/Ec) 81 mg PO DAILY RF: 0 tamsulosin 0.4 mg capsule 0.8 mg PO QPM RF: 0 amlodipine 10 mg tablet 10 mg PO DAILY RF: 0 carvedilol 25 mg tablet 25 mg PO BID RF: 0 sennosides 8.6 mg Tablet 8.6 mg PO DAILY RF: 0 sevelamer HCl 800 mg Tablet 800 mg PO BID RF: 0 venlafaxine 150 mg Capsule,Extended Release 24hr 150 mg PO QAM RF: 0 clonidine HCl 0.3 mg Tablet 0.3 mg PO Q8H RF: 0 isosorbide mononitrate 120 mg Tablet Extended Release 24 Hr 120 mg PO DAILY RF: 0 Tylenol 325 mg Tablet 650 mg PO Q6H PRN (Reason: pain) RF: 0 atorvastatin 80 mg tablet 80 mg PO DAILY RF: 0 Isopto Tears 0.5 % Drops 1 drp eye-both BEDTIME Qty: 15 RF: 0 gabapentin 300 mg capsule 300 mg PO BID Qty: 0 RF: 0 albuterol sulfate 90 mcg/actuation HFA aerosol inhaler 2 inh inhalation Q6H PRN (Reason: shortness of breath or wheezing) Qty: 8.5 RF: 0 Changed bumetanide 2 mg tablet 3 mg PO BID Qty: 0 RF: 0 Discontinued alprazolam 0.5 mg tablet 0.5 mg PO BEDTIME PRN (Reason: Anxiety) RF: 0 famotidine 10 mg Tablet 10 mg PO BID RF: 0 hydralazine 100 mg Tablet 100 mg PO Q8H RF: 0 furosemide 40 mg tablet 40 mg PO BID Qty: 60 RF: 0 Discharge Orders: Discharge Order (Routine); Ordered 10/09/20 Ordered By: Rodney Alvarado Other Ambulatory Orders: Complete Blood Count w/Auto (Routine) Timeframe: 3 Days Location: Determined by Patient Ordered By: Rodney Alvarado Comprehensive Metabolic Panel (Routine) Timeframe: 3 Days Facility: [facility] - Location: Lab - Main Lab Ordered By: Rodney Alvarado DME: BIPAP (Order) Timeframe: 1 Day Location: None Selected Ordered By: Frederick Barclay DME: BIPAP (Order) Location: None Selected Ordered By: Frederick Barclay DME: Oxygen (Order) Location: None Selected Ordered By: Rodney Alvarado DME: Oxygen (Order) Location: None Selected Ordered By: Frederick Barclay Referrals: Sulma Wetzel MD [Primary Care Provider] - 4-7 days () Eusebio Oliva MD [Physician] - 1 week (Your appointment is on October 26 t 10:15 am. Please report to the hospital for an ultrasound of the kidneys priorto gpoing to Dr. Gillis office.) Rosie Ivey MD [Physician] - 1 month (You have an appointment with Dr. Ivey (cardiology)on October 22 at 9:30 am. And you have an appointment with Dr. Sánchez (pulmonology) on at 10:15 am.) Discharge Diet: Advance as tolerated Discharge Activity: Increase activity as tolerated Patient Instructions: Hydralazine (By mouth), Myocardial Infarction (DC), Acute Kidney Injury (DC), Chronic Kidney Disease (DC), Hypertension (DC), Respiratory Care (DC), CHF Stoplight Activity Restrictions/Additional Instructions: Please call your doctor or present to emergency department if your condition worsens or you develop diarrhea, lightheadedness, fatigue or see blood in your stool or black stool. Please restrict fluid consumption if you develop lower extremity swelling and shortness of breath as we have discussed. Please keep Melgar catheter in until you see Dr. Oliva. Please note that the Melgar catheter needs to be changed every 30 days. Please note that you will likely need to have another sleep study performed to qualify for CPAP/BiPAP. Please follow-up with pulmonary service as requested for further evaluation and treatment. If you experience a nosebleed, please lean forward, apply pressure from outside with your fingers, hold pressure for 10-15 minutes. Avoid blowing your nose for several days at least. Do not put any tissues, your fingers, or other objects in your nostrils. In case nosebleed recurs, please discuss with your primary care doctor referral to an ear nose throat doctor. If nosebleed is not going away, please proceed to ER or call 911. Please note BiPAP is being arranged for you, and the plan is for it to be delivered to your home. Please use it once it is delivered. Please call the hospital, rn social services department or your primary provider's office in case you do not receive it. Discharge Attestations Time Spent in Discharge Care*: greater than 30 min Status at Discharge: Cognitive status at discharge: cognitively intact , Behavioral status at discharge: cooperative , Quality Metrics Clinical Quality Measures During this hospital stay, did patient experience: None Coding Level of Care Code Acute g [facility] note Diagnoses Acute respiratory failure with hypoxia and hypercapnia J96.01; J96.02 Acute exacerbation of CHF (congestive heart failure) I50.33 Heart failure type: diastolic NSTEMI (non-ST elevated myocardial infarction) I21.4 Acute kidney injury superimposed on chronic kidney disease N17.9; N18.9 Obstructive sleep apnea G47.33 Diabetes mellitus type 2 in obese E11.69; E66.9
== END 2020-10-13 17:15 | disposition home or self-care (01) | DRG 280 ==
LOC: ER 16:43 → CSU 17:40
PROVIDERS: Family Medicine; Internal Medicine Cardiovascular Disease; Admitting Provider Internal Medicine; Emergency Provider Family Medicine; PCP Internal Medicine; Visit Provider Internal Medicine
DX: I21.A1 Myocardial infarction type 2 (principal); J96.01 Acute respiratory failure with hypoxia; J96.02 Acute respiratory failure with hypercapnia; I50.33 Acute on chronic diastolic (congestive) heart failure; G92 Toxic encephalopathy; I13.0 Hypertensive heart and chronic kidney disease with heart failure and stage 1 through stage 4 chronic kidney disease, or unspecified chronic kidney disease; T83.518A Infection and inflammatory reaction due to other urinary catheter, initial encounter; N39.0 Urinary tract infection, site not specified; N17.9 Acute kidney failure, unspecified; E66.2 Morbid (severe) obesity with alveolar hypoventilation; Z68.41 Body mass index [BMI] 40.0-44.9, adult; C64.9 Malignant neoplasm of unspecified kidney, except renal pelvis; N18.4 Chronic kidney disease, stage 4 (severe); Z86.16 Personal history of COVID-19; G47.33 Obstructive sleep apnea (adult) (pediatric); E11.22 Type 2 diabetes mellitus with diabetic chronic kidney disease; Y65.8 Other specified misadventures during surgical and medical care; Y92.009 Unspecified place in unspecified non-institutional (private) residence as the place of occurrence of the external cause; Z79.82 Long term (current) use of aspirin; J44.9 Chronic obstructive pulmonary disease, unspecified; Z85.528 Personal history of other malignant neoplasm of kidney; Z90.5 Acquired absence of kidney; Z86.74 Personal history of sudden cardiac arrest; E11.42 Type 2 diabetes mellitus with diabetic polyneuropathy
CPT/HCPCS: 36415; 36416; 36600; 71045; 80048; 80051; 80053; 80307; 81001; 82009; 82330; 82550; 82805; 82962; 83605; 83690; 83735; 83880; 84145; 84484; 85007; 85025; 85049; 85730; 87040; 87086; 93005; 93308; 94010; 94660; 94762; 96372; 97110; 97116; 97161; 97165; 97530; 97535; 99285; A9281; C8924; J0696; J1644; J1650; J1815 ×2; J1940; J1956; J2270; J3475; J3490; J7030; J7512; Q9956

== ENCOUNTER 2020-10-26 10:19 | Outpatient (CLI) | payer MEDICAID, SELFPAY ==
--- NOTE | 2020-10-26 10:15 | US_ITS ---
WS: [id number] RENAL ULTRASOUND HISTORY: RENAL CELL CARCINOMA COMPARISON: None available. TECHNIQUE: 2-D and color Doppler imaging of the kidney submitted. Right kidney: 13.5 cm x 6.5 cm x 6.5 cm. Normal echogenicity with no hydronephrosis or mass. Left kidney: 12.5 cm x 5.8 cm x 5.2 cm. LEFT kidney is difficult to visualize. Again noted is the solid ill-defined mass appearing lesion in the upper pole the LEFT kidney measuring 4.5 x 4.6 cm. There is increased vascularity. This correspon ds to the mass described on on 05/13/2020. Aorta: Normal. Urinary Bladder: Normal distention. US/US renal BI* [id number] IMPRESSION: 1. Suspicious for mass upper pole LEFT kidney. Difficult to define but there d oes appear to be a mass in the upper pole measuring 4.5 x 4.6 cm. Difficult to tell whether there has been progression in size as evaluation has always been l imited. Follow-up renal mass CT protocol recommended if patient's renal functio n is not compromised. 2. No hydronephrosis.
== END 2020-10-26 10:20 | disposition home or self-care (01) ==
LOC: US 10:21
PROVIDERS: PCP Internal Medicine; Visit Provider Urology
DX: C64.9 Malignant neoplasm of unspecified kidney, except renal pelvis (principal)
CPT/HCPCS: 76770

== ENCOUNTER 2020-11-11 13:02 | Inpatient (IN) | payer MEDICAID, SELFPAY ==
[2020-11-11] VITALS (42 sets, daily range): BP systolic 92–147; BP diastolic 41–76; PULSE 45–59; RESP 10–21; TEMP 33.4–33.7; O2SAT 87–98; BMI 43.5
--- NOTE | 2020-11-11 13:11 | XR_ITS ---
WS: [id number] Portable AP upright chest, 11/11/2020 Clinical Data: reduced breath sounds Comparison: Portable chest, 10/12/2020 Findings: The heart remains enlarged. There is a right dialysis catheter ending in the superior vena cava. The pulmonary vascularity is minimally prominent. Monitor leads are on the chest wall. XR/XR chest 1V portable [id number] Impression: Cardiomegaly
--- NOTE | 2020-11-11 13:13 | ECG_ITS ---
[facility] Test Date: 2020-11-11 Pat Name: Akil Velasco Department: Room: Gender: Male Door Manager: : 1970 Requested By: Gerald Prasad Order Number: [id number] MD: MATILDE BOOKER Measurements Intervals [place] Rate: 45 P: 55 TN: 214 QRS: 104 QRSD: 112 T: 49 QT: 531 QTc: 461 Interpretive Statements SINUS BRADYCARDIA WITH FIRST DEGREE AV BLOCK RIGHT AXIS DEVIATION [QRS AXIS > 100] LOW QRS VOLTAGE [QRS DEFLECTION < 0.5/1.0 mV IN LIMB/CHEST LEADS] SEPTAL MYOCARDIAL INFARCTION , PROBABLY OLD [40+ ms Q WAVE IN V1/V2] No previous ECG available for comparison Electronically Signed On 11-11-2020 20:41:47 CDT by MATILDE BOOKER [email or web address]
--- NOTE | 2020-11-11 13:45 | PC.NURSE ---
Patient was transferred to ICU around 1530 via bed on bipap. See vitals chart for admitting vitals. Patient was not complaining of anything except a feeling that he could not swallow. Dialysis port in place on right chest with dressing dry and intact. Some spastic movements were noted in upper extremities. Abdomen was distended, firm and large but patient did not complain of tenderness when palpated. Rectal temperature was taken and was 92.2. Guadalupe hugger applied and rechecked at 92.5 and again at 92.7.
[2020-11-11 13:59] LABS: Basophils % 0.5 %; Eosinophils # 0.4 10^3/uL (0.0-0.8); Eosinophils % 7.5 %; Hematocrit 22.5 % (42.0-52.0); Hemoglobin 6.8 g/dL (11.7-16.6); Lymphocytes # 0.7 10^3/uL (0.8-4.8); Lymphocytes % 11.4 %; Mean Corpuscular HGB Conc 30.2 g/dL (30.0-36.0); Mean Corpuscular Hemoglobin 28.2 pg (28.0-34.0); Mean Corpuscular Volume 93.4 fL (80-94); Mean Platelet Volume 11.4 fL (7.4-10.4); Monocytes # 0.5 10^3/uL (0.2-0.9); Monocytes % 8.1 %; Neutrophils # 4.05 10^3/uL (1.8-7.7); Neutrophils % 70.9 %; Nucleated Red Blood Cells % 0.7 %; Platelet Count 124 10^3/cmm (130-400); Red Blood Count 2.41 10^6/uL (4.1-5.3); Red Cell Distribution Width 18.5 % (12.1-15.1); White Blood Count 5.7 10^3/uL (4.0-10.0)
[2020-11-11 14:10] LABS: ABG PH Result 7.19 (7.35-7.45); Arterial Blood Gas Hematocrit 21.6 % (42-52); Blood Gas Allen Test Pos; Blood Gas Operator Identificat ED; Blood Gas Sample Site Radial, left; Blood Gas Sample Type Arterial; Carboxyhemoglobin 1.8 %THgb (0.4-20.1); HCO3 ABG 24.1 mmol/L (22-26); HGB O2 Sat 90.7 % (95-100); Methemoglobin 1.3 % (0.4-1.5); Oxygen Device NC; PO2 ABG 76.4 mmHg (80.0-100.0)
[2020-11-11 14:17] LABS: Lactate (Lactic Acid level) 0.5 mmol/L (0.5-2.2)
[2020-11-11 14:26] LABS: Alanine Aminotransferase 14 U/L (0-41); Albumin Level 3.3 g/dL (3.5-5.2); Alkaline Phosphatase 79 IU/L (40-130); Anion Gap 22.9 (5-19); Aspartate Amino Transferase 13 U/L (0-40); Calcium 7.3 mg/dL (8.5-10.5); Carbon Dioxide 23 mmol/L (22-29); Chloride 95 mmol/L (98-107); Globulin 2.8 g/dL (1.3-4.6); Glucose 143 mg/dL (65-115); NT Pro B Type Natriuretic Pept 18132 pg/mL (0-125); Potassium 5.9 mmol/L (3.5-5.1); Sodium 135 mmol/L (136-145); Total Bilirubin 0.3 mg/dL (0.15-1.2); Total Protein 6.1 g/dL (6.6-8.7)
[2020-11-11 14:40] LABS: Troponin(5th) Baseline 578 ng/L (0-15)
[2020-11-11 14:41] LABS: Blood Urea Nitrogen 178 mg/dL (6-20); Osmolality Calculated 342 mOsm/kg (285-295)
[2020-11-11 14:59] LABS: ABG PCO2 62.4 mmHg (35-45)
--- NOTE | 2020-11-11 15:12 | PM.CONSULT ---
Providers/Reason For Consult Consulting Physican/Specialty*: domonique patel md / telenephrology Reason for Consult*: ESRD, hyperkalemia. needs emergency HD Attending Physician: Paul Freeman MD Primary Care Provider: Sulma Wetzel MD History of Present Illness History of Present Illness Akil Velasco is a 50 year old male CHF, DM, HTN, COPd. He has progressive CKD stage 5- follows w/ Sr. S Luis. he had a tunnelled dialysis catheter placed yesterday. He is now here w/ weakness, SOB, CP, swelling, SOB, poor appetite, confusion, and uremia. Renal called to consult. h/o COVID -19 in Jul 2020. pt is not sure of med list. he says we have a list and recently started odium bicarb Review of Systems General: Reports: 10 or more systems reviewed and unremarkable except in HPI and below Narrative: weak, poor vision, labile sugars, poor appetite, SOB, ESTRADA, CP, metallic taste, abd distention Meds/Allergies Home Medications and Allergies Allergies Allergy/AdvReac Type Severity Reaction Status Date / Time NKA Allergy Unknown Uncoded 10/25/20 12:12 Vitals/I&O/Wt Last Vital Signs Pulse 45 L 11/11/20 14:26 Resp 17 11/11/20 13:07 BP 100/54 11/11/20 13:07 Pulse Ox 95 11/11/20 14:26 Weight last 48 hrs Weight 149.685 kg Physical Exam Narrative: EXAM NARRATIVE: SOB on bipap in ER hypotensive, tachycardic heent- nc/at, eomi, anicteric neck supple lungs crackles, dull bases heart reg, distant, +s1, s2 abd distended, ascites, +BS ext b/l edema neuro- a,a, o x 2+ skin no rash A&P Additional A&P Information 50 yr old man 1. eSRD from DM, CRS, obesity, htn- will perform emergency HD -check hep serologies -check phos, pth, vit d 1b anemia- Q bleed or from CKD- check iron studies and SPEP - consider tx 2 u prbc 2. COPD and hypercapneic resp acidosis- bipap as per medicine 3. met acidosis - co2 of 23 in a pt w/ hypercapneic resp acidosis is a low bicarb- met acidosis from ESRD 4. DM care 5. hyperkalemia- getting med therapy in ER. for HD 6. hypotension, bradycardia- review meds-check echo eval for pericardial effusion ICU eval- may need pressers for dialysis try to get old recoreds- pt states he was here for COVID-19 in Jul and September 2020 for CHF exacerbation seen w/ RN- telehealth visit. dr. Freeman called Consult Attestations Medical Necessity Statement: hypoxic, hypercapneic resp acidosis, hyperkalemia, ESRD- emergency HD Time Spent in Patient Care: Greater than 35 minutes Coding Level of Care Code Acute City Tax Auditor for Patricia Reid
--- NOTE | 2020-11-11 15:13 | ECG_ITS ---
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1970 Requested By: Gerald Prasad Order Number: [id number] MD: MATILDE BOOKER Measurements Intervals [place] Rate: 46 P: 45 [place]: 200 QRS: 96 QRSD: 107 T: 31 QT: 520 QTc: 456 Interpretive Statements SINUS BRADYCARDIA BORDERLINE RIGHT AXIS DEVIATION [QRS AXIS > 90] LOW QRS VOLTAGE [QRS DEFLECTION < 0.5/1.0 mV IN LIMB/CHEST LEADS] ANTEROSEPTAL MYOCARDIAL INFARCTION [40+ ms Q WAVE IN V1-V4], PROBABLY OLD Compared to ECG 11/11/2020 13:49:30 First degree AV block no longer present Myocardial infarct finding still present Electronically Signed On 11-11-2020 20:43:27 CDT by MATILDE BOOKER [id number]
[2020-11-11] MEDS: FUROsemide 10 mg/mL SDV 10mL 80 MG IVP (15:49)
--- NOTE | 2020-11-11 15:49 | W.ED.WEAKNES ---
HPI - Weakness General: Chief complaint: Weakness Stated complaint: GENERALIZED WEAKNESS Time Seen by Provider: 11/11/20 13:08 History of Present Illness: HPI Narrative: The patient is a 50-year-old male with past medical history of chronic kidney disease who had a right chest catheter placed yesterday for dialysis comes to the ER complaining of increasing shortness of breath, swelling, and general weakness. He is now requiring oxygen to breathe and has mild increased work of breathing. Shortly after arrival his breathing status slightly worsened and he became more hypoxic requiring BiPAP. He has not urinated since yesterday he says. He had dialysis scheduled for tomorrow but was unable to make it because of his increasing shortness of breath and weakness MD Complaint: generalized weakness Onset (ago): hour(s) (24) Duration: constant Location: generalized Severity: severe Relieving factors: none Exacerbating factors: none Associated symptoms: Reports short of breath; Denies chest pain, confusion or headache(s) Review of Systems General: Reports: 10 or more systems reviewed and unremarkable except in HPI and below Const: Denies: fatigue Eyes: Denies: change in vision, blurry vision or eye redness ENMT: Denies: throat pain, swelling of lips/tongue, ear or mastoid pain or nasal congestion Card: Denies: chest pain, palpitations, irregular heart rhythm, edema, dyspnea on exertion or orthopnea Resp: Reports: dyspnea; Denies: productive cough or non-productive cough GI: Denies: abdominal pain, diarrhea or GI cramping : Denies: flank pain, urinary frequency or urinary urgency Musc: Denies: neck pain, back pain, extremity pain, joint pain, joint redness, limited range of motion or muscle weakness Skin/Breast: Denies: rash, pruritus, erythema, skin pain or skin tenderness Neuro: Reports: weakness in extremities and other (Generalized weakness); Denies: headache(s), numbness in extremities, sensory changes, difficulty walking, dizziness, confusion or Slurred speech present Psych: Denies: anxiety or depression Endo: Denies: polyuria All/Imm: Denies: urticaria, throat swelling or tongue swelling Physical Exam Const: COMMON NORMALS: no acute distress, average body habitus, patient oriented x3, no limitations, alert and well nourished GENERAL APPEARANCE: cooperative, comfortable and well developed NUTRITIONAL APPEARANCE: obese ORIENTATION/CONSCIOUSNESS: Yes awake, Yes oriented to person, Yes oriented to place and Yes oriented to time OTHER: Anasarca and 3+ pitting edema in the bilateral lower extremities. HENMT: COMMON NORMALS: normocephalic, external ears normal and Normal external nose present HEAD & SCALP: normal to inspection and normocephalic NOSE: Normal external nose present EXTERNAL EAR: Yes external ears normal MOUTH: Normal oral and palatal mucosa present THROAT: posterior oropharynx normal Eye: COMMON NORMALS: Equal, round and reactive pupils present and EOMs intact bilaterally GENERAL EYE: appearance normal, both eyes and all related structures PUPIL: Yes Equal, round and reactive pupils present Neck/C-Spine: COMMON NORMALS: full ROM, no lymphadenopathy, no meningeal signs and no JVD GENERAL: Yes normal visual inspection Lymph: LYMPHATIC: no lymphadenopathy noted Chest: COMMONS NORMALS: normal inspection of the chest and normal palpation of entire chest wall Resp: COMMON NORMALS: normal respiratory effort, No retractions and percussion normal EFFORT & INSPECTION: Yes tachypneic AUSCULTATION: diminished lung sounds PERCUSSION: percussion normal Cardio: COMMON NORMALS: no JVD, regular rate, regular rhythm, S1 normal heart sound present, S2 normal heart sound present and Peripheral pulses 2+ throughout RATE: regular rate RHYTHM: regular rhythm HEART SOUNDS: S1 normal heart sound present and S2 normal heart sound present PERIPHERAL PULSES: Peripheral pulses 2+ throughout GI: COMMON NORMALS: Normal to inspection, nondistended, normoactive bowel sounds present, Soft to palpation, non-tender and no masses INSPECTION: Yes normal to inspection PALPATION: Yes Soft to palpation : COMMON NORMALS: Yes no CVA tenderness BLADDER/KIDNEY EXAM: Yes no CVA tenderness Back/Pelvis: COMMON NORMALS: no CVA tenderness, thoracic and lumbar spine normal to inspection, no thoracic nor lumbar tenderness and thoraco-lumbar ROM normal Extremity: COMMON NORMALS: normal to inspection, full ROM, capillary refill normal, no joint enlargement and no pedal edema GENERAL: Yes normal exam except as noted Neuro: COMMON NORMALS: patient oriented x3, CN's II-XII intact bilaterally, moves all extremities, no focal motor deficits, no sensory deficits noted and gait normal SENSORIUM/ORIENTATION: Yes alert, Yes oriented to person, Yes oriented to place and Yes oriented to time MENINGEAL SIGNS: Yes no meningeal signs Psych: COMMON NORMALS: mental status grossly normal, Normal thought process present, cooperative, normal affect and speech normal ATTITUDE: Yes calm SPEECH: Yes normal speech THOUGHT PROCESS: Normal thought process present Skin: COMMON NORMALS: no rashes or lesions noted GENERAL SKIN EXAM: no rashes or lesions noted Course Vital Signs: Vital signs: Vital Signs Pulse Rate 45 L 11/11/20 15:11 Respiratory Rate 17 11/11/20 13:07 Blood Pressure 100/54 11/11/20 13:07 Pulse Oximetry 93 11/11/20 15:11 MDM - Weakness MDM Narrative: Medical decision making narrative: Patient came to the ER complaining of general weakness and requiring oxygen to breathe. His respiratory status worsened slightly after arrival and he was requiring BiPAP. He has not urinated in 24 hours and had a right chest catheter placed for dialysis which was scheduled tomorrow however he could not make it because of his weakness. Creatinine 7.3, BUN 178, potassium 5.9, hemoglobin 6.8. Discussed with Dr. López who recommended dialysis in the ICU. Dr. Freeman accepts. He has been mildly hypotensive in the ED as well with systolic in the 90s to 110s. Lab Data: Labs: Lab Results 11/11/20 11/11/20 11/11/20 Range/Units 13:52 13:52 13:52 WBC 5.7 (4.0-10.0) 10^3/ uL RBC 2.41 L (4.1-5.3) 10^6/u L Hgb 6.8 L (11.7-16.6) g/dL Hct 22.5 L (42.0-52.0) % MCV 93.4 (80-94) fL MCH 28.2 (28.0-34.0) pg MCHC 30.2 (30.0-36.0) g/dL RDW 18.5 H (12.1-15.1) % Plt Count 124 L (130-400) 10^3/c mm MPV 11.4 H (7.4-10.4) fL Neut % (Auto) 70.9 % Lymph % (Auto) 11.4 % [place] % (Auto) 8.1 % Eos % (Auto) 7.5 % Baso % (Auto) 0.5 % Neut # (Auto) 4.05 (1.8-7.7) 10^3/u L Lymph # (Auto) 0.7 L (0.8-4.8) 10^3/u L [place] # (Auto) 0.5 (0.2-0.9) 10^3/u L Eos # (Auto) 0.4 (0.0-0.8) 10^3/u L Baso # (Auto) 0.0 (0.0-0.1) 10^3/u L Nucleated RBC % (a uto) 0.7 % Nucleated RBCs # 0.0 /100WBC Specimen Type Sample Site ABG pH (7.35-7.45) ABG pCO2 (35-45) mmHg ABG pO2 (80.0-100.0) mmH g ABG HCO3 (22-26) mmol/L ABG Base Excess (-2.0-2.0) mmol/ L Jesus Test Hematocrit (42-52) % Hgb O2 Saturation (95-100) % Carboxyhemoglobin (0.4-20.1) %THgb Methemoglobin (0.4-1.5) % Total Hemoglobin (14-18) g/dL O2 Delivery Device O2 Liters/Min % FiO2 % Sales Training Coordinator ID Sodium 135 L (136-145) mmol/L Potassium 5.9 H (3.5-5.1) mmol/L Chloride 95 L (98-107) mmol/L Carbon Dioxide 23 (22-29) mmol/L Anion Gap 22.9 H (5-19) BUN 178 H* (6-20) mg/dL Creatinine 7.3 H* (0.7-1.2) mg/dL GFR Calculation 8.0 L (90-130) mL/min Glucose 143 H (65-115) mg/dL Calculated Osmolal ity 342 H (285-295) mOsm/k g Lactate 0.5 (0.5-2.2) mmol/L Calcium 7.3 L (8.5-10.5) mg/dL Total Bilirubin 0.3 (0.15-1.2) mg/dL AST 13 (0-40) U/L ALT 14 (0-41) U/L Alkaline Phosphata se 79 (40-130) IU/L Troponin T Baselin e (0-15) ng/L NT-Pro-B Natriuret Pep 75102 H (0-125) pg/mL Total Protein 6.1 L (6.6-8.7) g/dL Albumin 3.3 L (3.5-5.2) g/dL Globulin 2.8 (1.3-4.6) g/dL 11/11/20 11/11/20 Range/Units 13:52 14:00 WBC (4.0-10.0) 10^3/ uL RBC (4.1-5.3) 10^6/u L Hgb (11.7-16.6) g/dL Hct (42.0-52.0) % MCV (80-94) fL MCH (28.0-34.0) pg MCHC (30.0-36.0) g/dL RDW (12.1-15.1) % Plt Count (130-400) 10^3/c mm MPV (7.4-10.4) fL Neut % (Auto) % Lymph % (Auto) % [place] % (Auto) % Eos % (Auto) % Baso % (Auto) % Neut # (Auto) (1.8-7.7) 10^3/u L Lymph # (Auto) (0.8-4.8) 10^3/u L [place] # (Auto) (0.2-0.9) 10^3/u L Eos # (Auto) (0.0-0.8) 10^3/u L Baso # (Auto) (0.0-0.1) 10^3/u L Nucleated RBC % (a uto) % Nucleated RBCs # /100WBC Specimen Type Arterial Sample Site Radial, left ABG pH 7.19 L (7.35-7.45) ABG pCO2 62.4 H* (35-45) mmHg ABG pO2 76.4 L (80.0-100.0) mmH g ABG HCO3 24.1 (22-26) mmol/L ABG Base Excess -4.0 L (-2.0-2.0) mmol/ L Jesus Test Pos Hematocrit 21.6 L (42-52) % Hgb O2 Saturation 90.7 L (95-100) % Carboxyhemoglobin 1.8 (0.4-20.1) %THgb Methemoglobin 1.3 (0.4-1.5) % Total Hemoglobin 7.0 L (14-18) g/dL O2 Delivery Device Nc O2 Liters/Min 4.0 % FiO2 36.0 % Sales Training Coordinator ID Ed Sodium (136-145) mmol/L Potassium (3.5-5.1) mmol/L Chloride (98-107) mmol/L Carbon Dioxide (22-29) mmol/L Anion Gap (5-19) BUN (6-20) mg/dL Creatinine (0.7-1.2) mg/dL GFR Calculation (90-130) mL/min Glucose (65-115) mg/dL Calculated Osmolal ity (285-295) mOsm/k g Lactate (0.5-2.2) mmol/L Calcium (8.5-10.5) mg/dL Total Bilirubin (0.15-1.2) mg/dL AST (0-40) U/L ALT (0-41) U/L Alkaline Phosphata se (40-130) IU/L Troponin T Baselin e 578 H* (0-15) ng/L NT-Pro-B Natriuret Pep (0-125) pg/mL Total Protein (6.6-8.7) g/dL Albumin (3.5-5.2) g/dL Globulin (1.3-4.6) g/dL Discharge Plan Discharge Patient Disposition: Admitted As Inpatient Admit Provider: Paul Freeman Clinical Impression: Acute renal failure, Acute hypoxemic respiratory failure Condition: Stable Coding Level of Care Code ED Supervisor Logging for Patricia Reid
[2020-11-11 16:18] LABS: Procalcitonin 0.47 ng/mL (0-0.5)
[2020-11-11] MEDS: heparin 5,000 unit/mL INJ 1 mL 5000 UNIT SUBCUT (16:28)
[2020-11-11] MEDS: dextrose 50% syringe 50 mL IVP (16:28)
[2020-11-11] MEDS: epoetin alfa 10,000 unit/mL INJ 10000 UNIT SUBCUT (16:29)
[2020-11-11 16:30] LABS: Ferritin 150 ng/mL (30-400)
[2020-11-11] MEDS: insulin regular-human 10 UNIT in SYRINGE 1 EACH IVP (16:30)
[2020-11-11 16:41] LABS: Lactic Sepsis W/Reflex 0.5 mmol/L (0.5-2.2)
--- NOTE | 2020-11-11 16:57 | P.HP_ITS ---
Providers/Chief Complaint Admitting Physician: Paul Freeman MD Primary Care Provider: Sulma Wetzel MD Chief Complaint: GENERALIZED WEAKNESS History of Present Illness Akil Velasco is a 50 year old male with past medical history of hypertension diabetes heart failure with preservation fraction, end-stage renal disease dialysis dependent, Covid pneumonia survivor, COPD, Had got tunneled dialysis catheter placed yesterday, came in today with chief complaint of shortness of breath, generalized weakness, confusion , and dizziness started this morning. Patient was worked up for above mentioned complaint. X-ray chest: Minimal pulmonary vascular congestion. EKG: Sinus bradycardia, first-degree AV block, low voltage QRS. Labs: WBC 5.7, H&H: 6.8/22, platelet count: 124, serum sodium: 135, serum potassium: 5.9, bicarb: 23, BUN: 178, serum creatinine: 7.3, troponin baseline: 578, 2-hour troponin: 586, 2-hour delta: 8 proBNP: 61395 , procalcitonin: 0.47, lactic acid: 0.5, ABG: pH: 7.19, PCO2: 62, PO2: 76, FiO2: 36 ECA medications: Lasix 80 mg IV x1 dose, regular insulin 10 units, dextrose 50 mL IV x1 dose, Renal was consulted. Review of Systems Const: Denies: fever(s) Card: Denies: palpitations Resp: Denies: productive cough, wheezing or pain on inspiration : Denies: flank pain Musc: Denies: extremity pain or extremity swelling Medications/Allergies Home Medications Medication Instructions Recorded Confirmed Last Taken Type alprazolam 0.5 mg PO DAILY PRN 11/11/20 11/11/20 Unknown History amlodipine 10 mg PO DAILY 11/11/20 11/11/20 11/11/20 History atorvastatin 80 mg PO DAILY 11/11/20 11/11/20 11/10/20 History bumetanide 2 mg PO DAILY 11/11/20 11/11/20 11/11/20 History carvedilol 25 mg PO BID 11/11/20 11/11/20 11/11/20 History citalopram 20 mg PO DAILY 11/11/20 11/11/20 11/11/20 History clonidine HCl 0.3 mg PO TID 11/11/20 11/11/20 11/11/20 History gabapentin 300 mg PO BID 11/11/20 11/11/20 11/11/20 History hydralazine 100 mg PO TID 11/11/20 11/11/20 11/11/20 History insulin degludec [Tresiba 40 unit SUBCUT DAILY 11/11/20 11/11/20 11/10/20 History FlexTouch U-100] insulin glargine [Lantus U-100 15 unit SUBCUT DAILY 11/11/20 11/11/20 11/11/20 History Insulin] insulin lispro [Humalog U-100 See Rx Instructions .ROUTE .COMPLEX 11/11/20 11/11/20 Unknown History Insulin] isosorbide mononitrate 120 mg PO DAILY 11/11/20 11/11/20 11/11/20 History metolazone 5 mg PO DAILY 11/11/20 11/11/20 11/11/20 History olanzapine 2.5 mg PO BEDTIME 11/11/20 11/11/20 11/10/20 History pantoprazole 40 mg PO BID 11/11/20 11/11/20 11/11/20 History sevelamer carbonate 800 mg PO BID 11/11/20 11/11/20 11/11/20 History sodium bicarbonate 650 mg PO TID 11/11/20 11/11/20 11/11/20 History tamsulosin 0.8 mg PO BEDTIME 11/11/20 11/11/20 11/10/20 History venlafaxine 150 mg PO DAILY 11/11/20 11/11/20 11/11/20 History Allergies Allergy/AdvReac Type Severity Reaction Status Date / Time No Known Allergies Allergy Unverified 11/11/20 15:36 Vitals/I&O/Wt Last Vital Signs Pulse 46 L 11/11/20 15:50 Resp 13 11/11/20 15:50 BP 105/55 11/11/20 15:50 Pulse Ox 93 11/11/20 15:50 Weight last 48 hrs Weight 149.685 kg Physical Exam Const: COMMON NORMALS: patient oriented x3 HENMT: COMMON NORMALS: normocephalic and atraumatic HEAD & SCALP: normocephalic and atraumatic Resp: COMMON NORMALS: clear to auscultation bilaterally EFFORT & INSPECTION: Yes symmetric chest movement AUSCULTATION: clear to auscultation bilaterally Cardio: COMMON NORMALS: regular rate, regular rhythm, S1 normal heart sound present, S2 normal heart sound present, No gallops present (Cardio), No murmurs present (Cardio), No rub (Cardio) and Peripheral pulses 2+ throughout RATE: regular rate RHYTHM: regular rhythm HEART SOUNDS: S1 normal heart sound present and S2 normal heart sound present PERIPHERAL PULSES: Peripheral pulses 2+ throughout GI: COMMON NORMALS: Normal to inspection, nondistended, normoactive bowel sounds present, Soft to palpation, non-tender, No hepatosplenomegaly present and no masses AUSCULTATION: Yes normoactive bowel sounds PALPATION: Yes Soft to palpation and Yes No hepatosplenomegaly present RECTAL EXAM: Yes deferred Extremity: NARRATIVE EXTREMITY EXAM: 2+ bilateral lower extremity pitting edema Neuro: COMMON NORMALS: patient oriented x3 Data : 11/11/20 13:52 11/11/20 13:52 Micro: Microbiology 11/11/20 16:09 Blood Culture - Preliminary Blood SPECIMEN COLLECTED 11/11/20 16:00 Blood Culture - Preliminary Blood SPECIMEN COLLECTED A&P Assessment and plan (1) Respiratory failure with hypoxia and hypercapnia: Multifactorial, volume overload, COPD, decompensated heart failure with preserved ejection. Currently on BiPAP, monitor ABG, and x-ray chest. Continue Bumex 2 mg IV every 12 hours daily, continue metolazone 5 MG PO DAILY Continue Imdur 120 MG PO DAILY , continue atorvastatin 80 mg p.o. daily, Currently scheduled for hemodialysis, appreciate nephrology recommendations. Status: Acute (2) Acute encephalopathy: Acute metabolic encephalopathy likely secondary to uremia. Plan is 1 Status: Acute (3) Anemia: Anemia of renal disease. Anemia panel. Transfuse 2 units PRBC. ALBERTO Monitor CBC. Status: Acute (4) Heart failure: Decompensated heart failure with preservation fraction. Plan is 1 Status: Acute (5) Hyperkalemia: Patient has received insulin and dextrose in the ER, currently undergoing hemodialysis. Repeat BMP, telemetry monitoring. Status: Acute (6) Elevated troponin: Chronically elevated troponin likely secondary demand ischemia. Status: Acute (7) End stage renal disease on dialysis: Status: Acute (8) Hypertension: Status: Acute (9) Diabetes: Status: Acute (10) COPD (chronic obstructive pulmonary disease): Status: Acute (11) Sinus bradycardia: Status: Acute (12) First degree heart block: Status: Acute Attestations Medical Necessity Statement*: Patient needs to be in hospital for management of, respiratory failure, H/F, hyperkalemia.Anticipated length of stay [facility] t [place] 2 midnights. Coding Level of Care Code Acute Primary Care Provider for Chg Fwd Diagnoses Respiratory failure with hypoxia and hypercapnia J96.91; J96.92 Acute encephalopathy G93.40 Anemia D64.9 Heart failure I50.9 Hyperkalemia E87.5 Elevated troponin R77.8 End stage renal disease on dialysis N18.6; Z99.2 Hypertension I10 Diabetes E11.9 COPD (chronic obstructive pulmonary disease) J44.9 Sinus bradycardia R00.1 First degree heart block I44.0
[2020-11-11 17:01] LABS: Hepatitis B Surface Antigen Non-Reactive (Nonreactive)
[2020-11-11 17:04] LABS: Glucose Point of Care 135 mg/dL (70-110)
[2020-11-11 17:21] LABS: Hepatitis C Virus Antibody Non-Reactive (Nonreactive)
[2020-11-11 17:34] LABS: Add Urine Microscopic? NO; Bilirubin Urine Neg (Negative); Blood Urine Neg (Negative); Glucose Urine UA Norm (Normal); Ketones Urine Negative (Negative); Leukocyte Esterase Urine Negative (Negative); Nitrate Urine Negative (Negative); Protein Urine 3+ (Negative); RBC Urine 0-4 /hpf (0-2); Urine Appearance Hazy (CLEAR); Urine Color Yellow (Yellow); Urobilinogen Urine Norm (Negative); pH Urine 5 (5-7)
[2020-11-11 17:35] LABS: Add Urine Culture? No; Amorphous Sediment Urine 4+ /hpf; Bacteria Urine TRACE /hpf; Fine Granular Casts Urine 0-4 /lpf; Squamous Epithelial Cell Urine 0-4 /hpf (0-5)
[2020-11-11 17:37] LABS: Potassium, Radom Urine 39 mmol/L; Urine Random Chloride 25 mmol/L; Urine Random Sodium 17 mmol/L
--- NOTE | 2020-11-11 18:41 | PC.NURSE ---
Blood transfused by dialysis nurse. See TAR for vitals
[2020-11-11] MEDS: sodium chloride 0.9% (100 ml) 100 ML (19:10)
[2020-11-11] MEDS: sevelamer 800 mg Tablet PO (19:10)
[2020-11-11] MEDS: pantoprazole DR 40 mg Tablet PO (19:11)
--- NOTE | 2020-11-11 19:13 | ECG_ITS ---
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 Measurements Intervals [place] Rate: 62 P: 51 NM: 203 QRS: 116 QRSD: 101 T: 53 QT: 448 QTc: 457 Interpretive Statements SINUS RHYTHM WITH OCCASIONAL VENTRICULAR PREMATURE COMPLEXES POSSIBLE RIGHT VENTRICULAR HYPERTROPHY [SOME/ALL OF: PROMINENT R IN V1, LATE TRANSITION, RAD, JEROME, SSS] SEPTAL MYOCARDIAL INFARCTION [40+ ms Q WAVE IN V1/V2], OF INDETERMINATE AGE Compared to ECG 11/11/2020 16:22:53 Ventricular premature complex(es) now present Sinus bradycardia no longer present Myocardial infarct finding still present Electronically Signed On 11-12-2020 21:05:11 CDT by Shirin Kendrick M.D. [id number]
[2020-11-11 20:31] LABS: Hepatitis B Surface AB 3.5 (11.5-1000)
[2020-11-11] MEDS: tamsulosin 0.4 mg Capsule 0.8 MG PO (20:43)
[2020-11-11] MEDS: OLANZapine 5 mg TABLET 2.5 MG PO (20:43)
--- NOTE | 2020-11-11 23:38 | PC.NURSE ---
Dr. Johansen notified of 6hr Trop of 563.
[2020-11-12] VITALS (40 sets, daily range): BP systolic 114–168; BP diastolic 57–93; PULSE 60–78; RESP 7–28; TEMP 36.3–36.8; O2SAT 70–96
[2020-11-12] MEDS: heparin 5,000 unit/mL INJ 1 mL 5000 UNIT SUBCUT ×4 (00:07→23:09)
[2020-11-12] MEDS: ALPRAZolam 0.5 mg Tablet PO ×2 (01:25→22:05)
[2020-11-12 04:09] LABS: Basophils # 0.1 10^3/uL (0.0-0.1); Basophils % 0.7 %; Eosinophils # 0.5 10^3/uL (0.0-0.8); Eosinophils % 6.3 %; Hematocrit 24.6 % (42.0-52.0); Hemoglobin 7.4 g/dL (11.7-16.6); Lymphocytes # 0.3 10^3/uL (0.8-4.8); Lymphocytes % 4.6 %; Mean Corpuscular HGB Conc 30.1 g/dL (30.0-36.0); Mean Corpuscular Hemoglobin 27.3 pg (28.0-34.0); Mean Corpuscular Volume 90.8 fL (80-94); Mean Platelet Volume 10.7 fL (7.4-10.4); Monocytes # 0.6 10^3/uL (0.2-0.9); Monocytes % 7.6 %; Neutrophils % 79.6 %; Nucleated Red Blood Cells % 0.5 %; Platelet Count 130 10^3/cmm (130-400); Red Blood Count 2.71 10^6/uL (4.1-5.3); Red Cell Distribution Width 18.1 % (12.1-15.1); White Blood Count 7.4 10^3/uL (4.0-10.0)
[2020-11-12 04:21] LABS: Calcium 7.6 mg/dL (8.5-10.5)
[2020-11-12 04:25] LABS: Thyroid Stimulating Hormone 2.54 uIU/mL (0.27-4.20)
[2020-11-12 04:53] LABS: Albumin Level 3.6 g/dL (3.5-5.2); Alkaline Phosphatase 83 IU/L (40-130); Potassium 5.1 mmol/L (3.5-5.1); Sodium 136 mmol/L (136-145)
[2020-11-12 04:58] LABS: Parathyroid Hormone 459.3 pg/mL (15-65)
[2020-11-12 04:59] LABS: Alveolar-Arterial Oxygen Gradi 0.3 mmHg (5-10); Arterial Blood Gas Hematocrit 23.4 % (42-52); Base Excess ABG -1.5 mmol/L (-2.0-2.0); Blood Gas Allen Test Pos; Blood Gas Sample Type Arterial; Carboxyhemoglobin 1.7 %THgb (0.4-20.1); HGB O2 Sat 93.8 % (95-100); Methemoglobin 1.3 % (0.4-1.5); Oxygen Saturation ABG 96.6; Potassium Level - ABG 4.9 mmol/L (3.5-5.0); Total Hemoglobin 7.6 g/dL (14-18)
[2020-11-12 05:00] LABS: Blood Gas Operator Identificat HARKR; Blood Gas Sample Site Radial, right; Oxygen Device NC
--- NOTE | 2020-11-12 05:00 | USCV_ITS ---
Akil Velasco Age: 50 Gender: M : 1970 Exam Date: 11/12/2020 06:30 Ordering Phys: Paul Freeman MD Technologist: Lizzy Sullivan Exam Location: [facility] – [place] Indication: possible pericardial effusion BP: / HR: Rhythm: Sinus Technical Quality: Fair MEASUREMENTS (Male / Female) Normal Values 2D ECHO LV Diastolic Diameter PLAX 4.9 cm 4.2 - 5.9 / 3.9 - 5.3 cm LV Systolic Diameter PLAX 3.3 cm LV Chamber Size 4.6 cm IVS Diastolic Thickness 2.2 cm 0.6 - 1.0 / 0.6 - 0.9 cm IVS Systolic Thickness 2.3 cm LVPW Diastolic Thickness 1.6 cm 0.6 - 1.0 / 0.6 - 0.9 cm LVPW Systolic Thickness 2.0 cm RV Chamber Size 3.8 cm LVOT Diameter 2.0 cm LV Ejection Fraction 2D Teich 59.7 % LV Ejection Fraction MOD 2C 46.5 % LV Ejection Fraction 2C AL 45.7 % LA Diameter 4.3 cm LA Width 3.5 cm LA Height 5.4 cm RA Width 4.1 cm RA Height 5.0 cm Aorta at Sinotubular Diameter 3.2 cm DOPPLER AV Peak Velocity 124.0 cm/s LVOT Peak Velocity 89.0 cm/s AV Area Cont Eq vti 2.8 cm squared AV Area Cont Eq pk 2.3 cm squared MV Area PHT 4.6 cm squared Mitral E to A Ratio 1.6 MV E' Velocity 66.5 cm/s Mitral E to MV E' Ratio 26.0 Mitral E to LV E' Lateral Ratio 43.3 Mitral E to LV E' Septal Ratio 18.8 TR Peak Velocity 169.2 cm/s TR Peak Gradient 11.5 mmHg TR Mean Velocity 127.2 cm/s TR Mean Gradient 7.6 mmHg TR Velocity Time Integral 39.0 cm TV Peak E Velocity 74.0 cm/s Right Atrial Pressure 15.0 mmHg Pulmonary Artery Systolic Pressu 26.5 mmHg PV Peak Velocity 88.3 cm/s RV Acceleration Time 0.1 s RV Ejection Time 0.3 s RV AcT/ET 0.4 FINDINGS Left Ventricle Normal left ventricular cavity size and possibly normal systolic function. Left ventricular ejection fraction is estimated at 60 %. This study is inadequate for estimation of regional wall motion normality. Grade II diastolic dysfunction, moderately elevated filling pressures. Right Ventricle Decreased right ventricular systolic function. Right Atrium Normal right atrial size. Left Atrium Moderately increased left atrial size. Mitral Valve Mild mitral annular calcification. No mitral valve stenosis. Trace mitral valve regurgitation. Aortic Valve Mildly thickened trileaflet aortic valve. No aortic valve stenosis. No aortic valve regurgitation. Tricuspid Valve Structurally normal tricuspid valve. Moderate tricuspid valve regurgitation. Pulmonic Valve Structurally normal pulmonic valve. No pulmonary valve stenosis. Trace pulmonary valve regurgitation. Pericardium No pericardial effusion. Aorta Normal size aortic root and proximal ascending aorta. CONCLUSIONS 1. This is a technically very difficult study. 2. Normal left ventricular cavity size and possibly normal systolic function. Left ventricular ejection fraction is estimated at 60 %. This study is inadequate for estimation of regional wall motion normality. Grade II diastolic dysfunction, moderately elevated filling pressures. 3. Moderate tricuspid valve regurgitation. 4. Repeat study with echo contrast is recommended. Rosie Ivey MD (Electronically Signed) Final Date: 12 November 2020 13:44 S
[2020-11-12 05:15] LABS: Alanine Aminotransferase 11 U/L (0-41); Aspartate Amino Transferase 13 U/L (0-40); Calcium 7.3 mg/dL (8.5-10.5); Carbon Dioxide 23 mmol/L (22-29); Globulin 2.7 g/dL (1.3-4.6); Glomerular Filtration Rate 10.4 mL/min (90-130); Glucose 110 mg/dL (65-115); Magnesium 1.7 mg/dL (1.7-2.3); Phosphorus 6.6 mg/dL (2.5-4.5); Total Bilirubin 0.3 mg/dL (0.15-1.2); Total Protein 6.3 g/dL (6.6-8.7)
[2020-11-12 05:22] LABS: Osmolality Calculated 327 mOsm/kg (285-295)
[2020-11-12 05:23] LABS: 25 Hydroxy Vitamin D 13 ng/mL (30-100); Anion Gap 22.1 (5-19); Chloride 96 mmol/L (98-107)
[2020-11-12 05:26] LABS: Blood Urea Nitrogen 136 mg/dL (6-20)
[2020-11-12 05:34] LABS: Glucose Point of Care 100 mg/dL (70-110)
[2020-11-12 05:36] LABS: Total Iron Binding Capacity 327 mcg/dl; Unsaturated Iron Binding 290 ug/dL (112-347)
[2020-11-12 05:43] LABS: Iron 37 ug/dL (59-158); Percent Saturation 11.3 % (20-50)
[2020-11-12] MEDS: bumetanide 0.25 mg/mL SDV 10 mL 2 MG IV ×2 (08:45→20:51)
[2020-11-12] MEDS: pantoprazole DR 40 mg Tablet PO ×2 (08:46→18:34)
[2020-11-12] MEDS: venlafaxine ER (24HR) 150 mg Capsule PO (08:46)
[2020-11-12] MEDS: cholecalciferol (vitamin D3) 5,000 unit Tablet 5000 UNIT PO (08:46)
[2020-11-12] MEDS: metOLazone 5 MG Tablet PO (08:46)
[2020-11-12] MEDS: atorvastatin 40 mg Tablet 80 MG PO (08:46)
[2020-11-12] MEDS: isosorbide mononitrate ER 60 mg Tablet 120 MG PO (08:46)
[2020-11-12] MEDS: iron sucrose 200 MG in sodium chloride 0.9% (100 ml) 100 ML 220 MG IV (08:46)
[2020-11-12] MEDS: sevelamer 800 mg Tablet PO ×2 (08:47→18:34)
--- NOTE | 2020-11-12 10:40 | PM.PN ---
Subjective Subjective: Interval history: Patient was seen and examined this morning.He is due for repeat dialysis today.Yesterday he was dialyzed.Sinus bradycardia has resolved,hypothermia has resolved. Hypotension has resolved. Continue to complain of too much fluids in his body.2D echo done today was of poor quality but is suggestive of small pericardial effusion. Vitals/I&O/Wt Last Vital Signs Temp 97.3 F L 11/12/20 00:00 Pulse 67 11/12/20 08:52 Resp 18 11/12/20 06:00 BP 139/75 11/12/20 06:00 Pulse Ox 92 11/12/20 08:52 11/11/20 11/12/20 11/12/20 22:59 06:59 14:59 Intake Total 480.1 / 480.1 410 / 410 Output Total 600 / 600 350 / 350 Balance 480.1 / 480.1 -600 / -119.9 60 / 60 Weight last 48 hrs Weight 149.685 kg Physical Exam Const: COMMON NORMALS: patient oriented x3 HENMT: COMMON NORMALS: normocephalic and atraumatic HEAD & SCALP: normocephalic and atraumatic Resp: COMMON NORMALS: clear to auscultation bilaterally EFFORT & INSPECTION: Yes symmetric chest movement AUSCULTATION: clear to auscultation bilaterally Cardio: COMMON NORMALS: regular rate, regular rhythm, S1 normal heart sound present, S2 normal heart sound present, No gallops present (Cardio), No murmurs present (Cardio), No rub (Cardio) and Peripheral pulses 2+ throughout RATE: regular rate RHYTHM: regular rhythm HEART SOUNDS: S1 normal heart sound present and S2 normal heart sound present PERIPHERAL PULSES: Peripheral pulses 2+ throughout GI: COMMON NORMALS: Normal to inspection, nondistended, normoactive bowel sounds present, Soft to palpation, non-tender, No hepatosplenomegaly present and no masses AUSCULTATION: Yes normoactive bowel sounds PALPATION: Yes Soft to palpation and Yes No hepatosplenomegaly present RECTAL EXAM: Yes deferred Extremity: NARRATIVE EXTREMITY EXAM: 2+ bilateral lower extremity pitting edema Neuro: COMMON NORMALS: patient oriented x3 Urinary Catheter Management^: Melgar: Cath Placed During This Visit: yes Reason for Continuing Indwelling Catheter: Accurate Measurement of Urinary Output in Critically Ill Patients Urinary Catheter Date of Insertion: 11/11/20 Urinary Catheter Time of Insertion: 17:00 Data : 11/12/20 03:41 11/12/20 03:41 Micro: Microbiology 11/11/20 16:09 Blood Culture - Preliminary Blood SPECIMEN COLLECTED 11/11/20 16:00 Blood Culture - Preliminary Blood SPECIMEN COLLECTED A&P Assessment and plan (1) Respiratory failure with hypoxia and hypercapnia: Multifactorial, volume overload, COPD, decompensated heart failure with preserved ejection. Currently on BiPAP, monitor ABG, and x-ray chest. Continue Bumex 2 mg IV every 12 hours daily, continue metolazone 5 MG PO DAILY Continue Imdur 120 MG PO DAILY , continue atorvastatin 80 mg p.o. daily, Currently scheduled for hemodialysis, appreciate nephrology recommendations. 2 D echo : Normal left ventricular cavity size and possibly normal systolic function. Left ventricular ejection fraction is estimated at 60 %. This study is inadequate for estimation of regional wall motion normality. Grade II diastolic dysfunction, moderately elevated filling pressures. Moderate tricuspid valve regurgitation Repeat 2D Echo with contrast : Status: Acute (2) Acute encephalopathy: Resolved Acute metabolic encephalopathy likely secondary to uremia. Plan is 1 Status: Acute (3) Anemia: BRIGIDA anemia Anemia panel: Serum Iron : 37, TIBC : 327, % Saturation : 11.3, Ferritin : 150 S/P 2 units PRBC. ALBERTO I.V Venofer 5 doses Monitor CBC. Status: Acute (4) Heart failure: Decompensated heart failure with preservation fraction. Plan is 1 Status: Acute (5) Hyperkalemia: Resolved Patient has received insulin and dextrose in the ER, currently undergoing hemodialysis. Repeat BMP, telemetry monitoring. Status: Acute (6) Elevated troponin: Chronically elevated troponin likely secondary demand ischemia. Status: Acute (7) End stage renal disease on dialysis: Newly started on dialysis 1 st dialysis session on 10/11.Has a right tunneled dialysis catheter. Status: Acute (8) Hypertension: Status: Acute (9) Diabetes: Status: Acute (10) COPD (chronic obstructive pulmonary disease): Status: Acute (11) Sinus bradycardia: Resolved Status: Acute (12) First degree heart block: Status: Acute (13) Vitamin D deficiency: 5000 u po D3 daily for 4 weeks Reevaluate 25 OH Vitamin D Level Status: Acute Attestations Medical Necessity Statement*: Patient needs to be in hospital for the management of H/F/ Need for ongoing dialysis, r/f Coding Level of Care Code Acute Manager Drug Safety for Chg Fwd Diagnoses Respiratory failure with hypoxia and hypercapnia J96.91; J96.92 Acute encephalopathy G93.40 Anemia D64.9 Heart failure I50.9 Hyperkalemia E87.5 Elevated troponin R77.8 End stage renal disease on dialysis N18.6; Z99.2 Hypertension I10 Diabetes E11.9 COPD (chronic obstructive pulmonary disease) J44.9 Sinus bradycardia R00.1 First degree heart block I44.0 Vitamin D deficiency E55.9
--- NOTE | 2020-11-12 11:24 | PC.RESP ---
Pulmonary Rehab information sent to patient
[2020-11-12] MEDS: sodium chloride 0.9% (100 ml) 100 ML (12:04)
--- NOTE | 2020-11-12 12:15 | P.PN_ITS ---
Subjective Subjective: Interval history: Feels ok, Still al little short of breath and feels like he has a lot of fluid on. No other acute uremic Sx. Making more urine. Maintaining oxygen levels well Vitals/I&O/Wt Last Vital Signs Temp 98 F 11/12/20 12:06 Pulse 67 11/12/20 12:06 Resp 13 11/12/20 12:06 BP 149/69 11/12/20 12:06 Pulse Ox 91 11/12/20 12:06 11/11/20 11/12/20 11/12/20 22:59 06:59 14:59 Intake Total 480.1 / 480.1 410 / 410 Output Total 600 / 600 350 / 350 Balance 480.1 / 480.1 -600 / -119.9 60 / 60 Weight last 48 hrs Weight 149.685 kg Physical Exam Narrative: EXAM NARRATIVE: Constitutional: Awake, comfortable HEENT: Wet mucosa, no jvp, non icteric Lungs: Bilaterally clear without discernible wheeze, rales in all lung zones CVS: S1 S2, no murmurs Abdo: Soft, BS ok Ext 4: 1-2+ edema, peripheral perfusion with no cyanosis Neurological: Grossly non-focal Urinary Catheter Management^: Melgar: Cath Placed During This Visit: yes Reason for Continuing Indwelling Catheter: Accurate Measurement of Urinary Output in Critically Ill Patients Urinary Catheter Date of Insertion: 11/11/20 Urinary Catheter Time of Insertion: 17:00 Data : 11/12/20 03:41 11/12/20 03:41 Micro: Microbiology 11/11/20 16:09 Blood Culture - Preliminary Blood SPECIMEN COLLECTED 11/11/20 16:00 Blood Culture - Preliminary Blood SPECIMEN COLLECTED A&P Additional A&P Information 1. 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 Hemodyamics robust 3. Stable chemistry, well balanced 4. Anemia Procrit/Venofer dosing 5. Binders on board for hyperphos John Peters MD Nephrology [phone] Patient seen and examined via telemedicine, with the assistance of the bedside RN > 25 min spent in evaluation and mgmt of patient Attestations Medical Necessity Statement*: Eval for renal failure Coding Level of Care Code Acute Chief Librarian Circulation Department for Chg Fwd
--- NOTE | 2020-11-12 13:39 | PC.NUTR ---
NUTRITION WEIGHT ASSESSMENT: Ht. 73 inches. Wt. 330 pounds. BMI of 43.5 kg/m2 indicates Morbid Obesity.
--- NOTE | 2020-11-12 13:44 | PC.CHAP ---
Pastoral Care Encounter/Spiritual Assessment Type of Contact [] Declined campground hand visit [] Patient/Family/Request visit [] Outpatient visit [] Follow-up visit [] Physician referral [] Code/Alert [] Routine visit [] Staff referral [] Actively dying [] Patient sleeping [] Family support [] [] Out of room [] Palliative care [] [] Receiving care in room [] Pre-surgical visit [] Trauma [] Long length of stay [xx] ICU visit [] Other: Relational/Emotional Strength [] Patient feels connected with others/family/visitors/staff [] Distress [] Loneliness/isolation [] Abandonment Spirituality of Patient [] Person of Lizabeth [] Attends Latter Day of their Lizabeth [] Believes in Prayer [] Reads Bible or Episcopalian materials [] There are Spiritual issues to be addressed Inspector Wreath Interventions [] Prayer [] Active listening [] Non-anxious presence [] Spiritual/emotional support [] Crisis/trauma care [] Spiritual counseling [] Bereavement support [] Provided bereavement packet [] Provided Bible/devotional materials [] Provided toy/stuffed animal, coloring book to patient or family member [] Provided Communion [] Anointing/Centre [] Salvation [] Completed spiritual assessment [] Other: Impact on Illness or Injury [] Angry [] Fearful [] Anxious [] Often cries [] Exhaustion [] Unable to work [] Unable to attend bahai [] Unable to walk/stand [] Unable to read [] Unable to drive [] Unable to eat/drink [] Unable to sleep [] Unable to be with family [] Patient intubated [] Other: Summary Inspector Wreath prayed outside room while med staff attended to patient. Spiritual assessment not possible. Time spent with patient 4 minutes
[2020-11-12] MEDS: ondansetron 2 mg/ML SDV 2 mL 4 MG IVP (13:46)
--- NOTE | 2020-11-12 14:03 | PC.NURSE ---
This nurse heard I feel sick from inside the room, dialysis nurse at bedside, then immediate emesis noted. Approx 300ml. Zofran admin IV., see MAR. Bathing and fresh linens provided.
[2020-11-12] MEDS: metoclopramide 5 mg/mL SDV 2 mL 10 MG IVP (15:42)
--- NOTE | 2020-11-12 16:32 | XRR_ITS ---
PROCEDURE INFORMATION: Exam: XR Chest Exam date and time: 11/12/2020 4:55 PM Age: 50 years old Clinical indication: Condition or disease; Lung condition and disease; Pneumonia; Aspiration; Patient HX: HX of renal cancer; Additional info: Possible aspiration pna TECHNIQUE: Imaging protocol: XR of the chest. Views: 1 view. COMPARISON: CR XR chest 1V portable [id number] 11/11/2020 1:28 PM FINDINGS: Tubes, catheters and devices: Right central line extends into the SVC. Lungs: Vascular congestion is seen in the right lower lobe. Low lung volumes are seen. No consolidation. Pleural spaces: Unremarkable. No pleural effusion. No pneumothorax. Heart/Mediastinum: Unremarkable. No cardiomegaly. Bones/joints: Unremarkable. XR/XR chest 1V portable [id number] IMPRESSION: 1. No acute findings. 2. Low lung volumes seen. 3. Right central line in the SVC
[2020-11-12 17:13] LABS: Glucose Point of Care 142 mg/dL (70-110)
[2020-11-12] MEDS: OLANZapine 5 mg TABLET 2.5 MG PO (20:51)
[2020-11-12] MEDS: tamsulosin 0.4 mg Capsule 0.8 MG PO (20:51)
[2020-11-12] MEDS: oxyCODONE-APAP 5-325 mg Tablet 1 TAB PO (22:05)
[2020-11-13] VITALS (38 sets, daily range): BP systolic 118–169; BP diastolic 73–122; PULSE 71–95; RESP 10–27; TEMP 36.1–36.7; O2SAT 62–95
[2020-11-13 06:07] LABS: Basophils % 0.4 %; Eosinophils # 0.3 10^3/uL (0.0-0.8); Eosinophils % 3.2 %; Hematocrit 26.4 % (42.0-52.0); Hemoglobin 8.1 g/dL (11.7-16.6); Lymphocytes # 0.5 10^3/uL (0.8-4.8); Lymphocytes % 5.1 %; Mean Corpuscular HGB Conc 30.7 g/dL (30.0-36.0); Mean Corpuscular Volume 91.3 fL (80-94); Mean Platelet Volume 11.8 fL (7.4-10.4); Monocytes # 0.7 10^3/uL (0.2-0.9); Monocytes % 7.3 %; Neutrophils # 7.79 10^3/uL (1.8-7.7); Neutrophils % 83.6 %; Nucleated Red Blood Cells % 0.4 %; Platelet Count 116 10^3/cmm (130-400); Red Blood Count 2.89 10^6/uL (4.1-5.3); Red Cell Distribution Width 18.4 % (12.1-15.1); White Blood Count 9.3 10^3/uL (4.0-10.0)
[2020-11-13 06:27] LABS: Alanine Aminotransferase 6 U/L (0-41); Albumin Level 3.3 g/dL (3.5-5.2); Alkaline Phosphatase 76 IU/L (40-130); Anion Gap 18.4 (5-19); Aspartate Amino Transferase 17 U/L (0-40); Calcium 7.5 mg/dL (8.5-10.5); Carbon Dioxide 26 mmol/L (22-29); Chloride 98 mmol/L (98-107); Globulin 2.9 g/dL (1.3-4.6); Glomerular Filtration Rate 12.9 mL/min (90-130); Glucose 91 mg/dL (65-115); Magnesium 1.7 mg/dL (1.7-2.3); Osmolality Calculated 318 mOsm/kg (285-295); Phosphorus 5.8 mg/dL (2.5-4.5); Potassium 4.4 mmol/L (3.5-5.1); Sodium 138 mmol/L (136-145); Total Bilirubin 0.5 mg/dL (0.15-1.2); Total Protein 6.2 g/dL (6.6-8.7)
[2020-11-13 06:33] LABS: Blood Urea Nitrogen 103 mg/dL (6-20)
[2020-11-13] MEDS: heparin 5,000 unit/mL INJ 1 mL 5000 UNIT SUBCUT ×3 (09:48→23:23)
[2020-11-13] MEDS: bumetanide 0.25 mg/mL SDV 10 mL 2 MG IV ×2 (09:48→21:47)
[2020-11-13] MEDS: isosorbide mononitrate ER 60 mg Tablet 120 MG PO (09:49)
[2020-11-13] MEDS: atorvastatin 40 mg Tablet 80 MG PO (09:49)
[2020-11-13] MEDS: venlafaxine ER (24HR) 150 mg Capsule PO (09:50)
[2020-11-13] MEDS: pantoprazole DR 40 mg Tablet PO ×2 (09:50→17:23)
[2020-11-13] MEDS: sevelamer 800 mg Tablet PO ×2 (09:50→17:23)
[2020-11-13] MEDS: metOLazone 5 MG Tablet PO (09:50)
[2020-11-13] MEDS: cholecalciferol (vitamin D3) 5,000 unit Tablet 5000 UNIT PO (09:50)
[2020-11-13] MEDS: iron sucrose 200 MG in sodium chloride 0.9% (100 ml) 100 ML 220 MG IV (09:50)
--- NOTE | 2020-11-13 10:11 | P.PN_ITS ---
Subjective Subjective: Interval history: He completed his second treatment of dialysis yesterday. Some vomiting towards the end of dialysis which is now settled down. He is breathing comfortably on his nasal CPAP. Improving lower extremity edema. No uremic symptoms. Vitals/I&O/Wt Last Vital Signs Temp 98.0 F 11/13/20 04:00 Pulse 73 11/13/20 08:37 Resp 18 11/13/20 08:37 BP 149/79 11/13/20 05:30 Pulse Ox 92 11/13/20 08:37 11/12/20 11/13/20 11/13/20 22:59 06:59 14:59 Intake Total 450 / 1360 0 / 1360 Output Total 800 / 1450 550 / 2000 Balance -350 / -90 -550 / -640 Weight last 48 hrs Weight 149.685 kg Physical Exam Narrative: EXAM NARRATIVE: Constitutional: Awake, comfortable HEENT: Wet mucosa, no jvp, non icteric Lungs: Bilaterally clear without discernible wheeze, rales in all lung zones CVS: S1 S2, no murmurs Abdo: Soft, BS ok Ext 4: 1-2+ edema, peripheral perfusion with no cyanosis Neurological: Grossly non-focal Urinary Catheter Management^: Melgar: Cath Placed During This Visit: yes Reason for Continuing Indwelling Catheter: Accurate Measurement of Urinary Output in Critically Ill Patients Urinary Catheter Date of Insertion: 11/11/20 Urinary Catheter Time of Insertion: 17:00 Data : 11/13/20 05:18 11/13/20 05:18 Micro: Microbiology 11/11/20 16:09 Blood Culture - Preliminary Blood NEGATIVE TO DATE 11/11/20 16:00 Blood Culture - Preliminary Blood NEGATIVE TO DATE A&P Additional A&P Information 1. 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 Hemodyamics robust 3. Stable chemistry, well balanced 4. Anemia Procrit/Venofer dosing 5. Binders on board for hyperphos 6. Dispo Will be ok for DC when senior case manager has set up outpatient HD John Peters MD Nephrology [phone] Patient seen and examined via telemedicine, with the assistance of the bedside RN > 25 min spent in evaluation and mgmt of patient Attestations Medical Necessity Statement*: eval for renal failure Coding Level of Care Code Acute Shipping & Receiving Lead for Francisco Javierg Franklin
--- NOTE | 2020-11-13 11:36 | PM.PN ---
Subjective Subjective: Interval history: Patient was seen and examined today, he received his 2nd session of dialysis yesterday it had to be cut short as he was having vomiting.No other acute event has done well on CPAP as well as HHFONC.Current plan is to dialyze him today again. Vitals/I&O/Wt Last Vital Signs Temp 98.0 F 11/13/20 04:00 Pulse 73 11/13/20 08:37 Resp 18 11/13/20 08:37 BP 149/79 11/13/20 05:30 Pulse Ox 92 11/13/20 08:37 11/12/20 11/13/20 11/13/20 22:59 06:59 14:59 Intake Total 450 / 1360 0 / 1360 Output Total 800 / 1450 550 / 2000 Balance -350 / -90 -550 / -640 Weight last 48 hrs Weight 149.685 kg Physical Exam Const: COMMON NORMALS: patient oriented x3 HENMT: COMMON NORMALS: normocephalic and atraumatic HEAD & SCALP: normocephalic and atraumatic Resp: COMMON NORMALS: clear to auscultation bilaterally EFFORT & INSPECTION: Yes symmetric chest movement AUSCULTATION: clear to auscultation bilaterally Cardio: COMMON NORMALS: regular rate, regular rhythm, S1 normal heart sound present, S2 normal heart sound present, No gallops present (Cardio), No murmurs present (Cardio), No rub (Cardio) and Peripheral pulses 2+ throughout RATE: regular rate RHYTHM: regular rhythm HEART SOUNDS: S1 normal heart sound present and S2 normal heart sound present PERIPHERAL PULSES: Peripheral pulses 2+ throughout GI: COMMON NORMALS: Normal to inspection, nondistended, normoactive bowel sounds present, Soft to palpation, non-tender, No hepatosplenomegaly present and no masses AUSCULTATION: Yes normoactive bowel sounds PALPATION: Yes Soft to palpation and Yes No hepatosplenomegaly present RECTAL EXAM: Yes deferred Extremity: NARRATIVE EXTREMITY EXAM: 2+ bilateral lower extremity pitting edema Neuro: COMMON NORMALS: patient oriented x3 Urinary Catheter Management^: Melgar: Cath Placed During This Visit: yes Reason for Continuing Indwelling Catheter: Accurate Measurement of Urinary Output in Critically Ill Patients Urinary Catheter Date of Insertion: 11/11/20 Urinary Catheter Time of Insertion: 17:00 Data : 11/13/20 05:18 11/13/20 05:18 Micro: Microbiology 11/11/20 16:09 Blood Culture - Preliminary Blood NEGATIVE TO DATE 11/11/20 16:00 Blood Culture - Preliminary Blood NEGATIVE TO DATE A&P Assessment and plan (1) Respiratory failure with hypoxia and hypercapnia: Multifactorial, volume overload, COPD, decompensated heart failure with preserved ejection. Currently on BiPAP, monitor ABG, and x-ray chest. Continue Bumex 2 mg IV every 12 hours daily, continue metolazone 5 MG PO DAILY Continue Imdur 120 MG PO DAILY , continue atorvastatin 80 mg p.o. daily, Currently scheduled for hemodialysis, appreciate nephrology recommendations. 2 D echo : Normal left ventricular cavity size and possibly normal systolic function. Left ventricular ejection fraction is estimated at 60 %. This study is inadequate for estimation of regional wall motion normality. Grade II diastolic dysfunction, moderately elevated filling pressures. Moderate tricuspid valve regurgitation Repeat 2D Echo with contrast : Status: Acute (2) Acute encephalopathy: Resolved Acute metabolic encephalopathy likely secondary to uremia. Plan is 1 Status: Acute (3) Anemia: BRIGIDA anemia Anemia panel: Serum Iron : 37, TIBC : 327, % Saturation : 11.3, Ferritin : 150 S/P 2 units PRBC: H/H: 8.08/24 ALBERTO I.V Venofer 5 doses Monitor CBC. Status: Acute (4) Heart failure: Decompensated heart failure with preservation fraction. Plan is 1 Status: Acute (5) Hyperkalemia: Resolved Patient has received insulin and dextrose in the ER, currently undergoing hemodialysis. Repeat BMP, telemetry monitoring. Status: Acute (6) Elevated troponin: Chronically elevated troponin likely secondary demand ischemia. Status: Acute (7) End stage renal disease on dialysis: Newly started on dialysis 1 st dialysis session on 10/11.Has a right tunneled dialysis catheter. Status: Acute (8) Hypertension: Status: Acute (9) Diabetes: Status: Acute (10) COPD (chronic obstructive pulmonary disease): Status: Acute (11) Sinus bradycardia: Resolved Status: Acute (12) First degree heart block: Status: Acute (13) Vitamin D deficiency: 5000 u po D3 daily for 4 weeks Reevaluate 25 OH Vitamin D Level Status: Acute Attestations Medical Necessity Statement*: Patient needs to be in hospital for the need of continued dialysis, heart failure, anemia. Coding Level of Care Code Acute Inspector And Unloader for [facility] Fwd Diagnoses Respiratory failure with hypoxia and hypercapnia J96.91; J96.92 Acute encephalopathy G93.40 Anemia D64.9 Heart failure I50.9 Hyperkalemia E87.5 Elevated troponin R77.8 End stage renal disease on dialysis N18.6; Z99.2 Hypertension I10 Diabetes E11.9 COPD (chronic obstructive pulmonary disease) J44.9 Sinus bradycardia R00.1 First degree heart block I44.0 Vitamin D deficiency E55.9
[2020-11-13] MEDS: perflutren protein-a microsphr 0.22 mg/mL SDV 3 mL IV (12:29)
[2020-11-13] MEDS: perflutren protein-a microsphr 0.22 mg/mL SDV 3 mL (12:55)
[2020-11-13] MEDS: heparin, porcine 1,000 unit/mL INJ 10 mL 10000 UNIT HE (16:09)
--- NOTE | 2020-11-13 16:26 | USCV_ITS ---
Rod Akil Age: 50 Gender: M : 1970 Exam Date: 11/13/2020 11:57 Ordering Phys: Paul Freeman MD Technologist: Pete Parker Exam Location: [facility] [place] Indication: CONTRAST BP: 123 / 85 HR: 71 Rhythm: Sinus Technical Quality: MEASUREMENTS (Male / Female) Normal Values 2D ECHO LV Ejection Fraction MOD 2C 62.9 % LV Ejection Fraction 2C AL 65.3 % FINDINGS Left Ventricle Right Ventricle Right Atrium Left Atrium Mitral Valve Aortic Valve Tricuspid Valve Pulmonic Valve Pericardium Aorta CONCLUSIONS 1. This is a limited echocardiogram with [employer]. 2. Normal left ventricular size and systolic function. Left ventricular ejection fraction estimated at 60%. No diagnostic regional wall motion abnormality. Abnormal septal motion in systole consistent with increased right ventricular systolic pressure. 3. Moderately to markedley dilated right ventrcile with moderately decreased right ventricular systolic function. Aroda occupying right ventricle. 4. Probably trivial pericardial effusion. Rosie Ivey MD (Electronically Signed) Final Date: 13 November 2020 23:04 S
--- NOTE | 2020-11-13 17:25 | PC.NURSE ---
Pt's stated pt is hungry and she is going to get him some fried rice. She asked me if that would be ok with his kidneys. I informed her that would not help his kidneyss she stated she knew. Educated/informed pt and that he is on a dialysis diet which means controlled proteins, low sodium, lower potassium and phosphorus. She then asked me what I ally do, I stated I would not suggest it but it is ultimately up to pt and herself. Pt did eat his full evening meal.
--- NOTE | 2020-11-13 17:27 | PC.NURSE ---
Report faxed to [facility].
--- NOTE | 2020-11-13 17:50 | PC.NURSE ---
Report called to CSU, verbal report given to Margot SCHERER.
--- NOTE | 2020-11-13 18:04 | PC.NURSE ---
Pt transferred to [facility] room 105. via W/C and non-rebreather. RT following with heated high flow . All belongings with pt, , Haily gathered belalejandras. D3 tablets to receiving nurse Frost.
--- NOTE | 2020-11-13 18:41 | PC.NURSE ---
received patient from JOSE SCHERER patient alert and oriented and in stable condition
[2020-11-13] MEDS: OLANZapine 5 mg TABLET 2.5 MG PO (21:39)
[2020-11-13] MEDS: tamsulosin 0.4 mg Capsule 0.8 MG PO (21:39)
--- NOTE | 2020-11-13 23:11 | PC.NURSE ---
pt was heard yelling Help! from the nurse's station. When this nurse entered the room, pt has daangling half his body off the bed. pt's oxygen had been removed and was satting in the low 80s. pt's oxygen was placed back on and pt was placed back in bed and pulled up using the lift sheet. pt was placed in high ruiz's position. pt's oxygen came up to 95%. this nurse was unable to set the bed alarm. 3 bed rails were raised and pt was educated to use his call light.
[2020-11-13] MEDS: ALPRAZolam 0.5 mg Tablet PO (23:24)
[2020-11-14] VITALS (18 sets, daily range): BP systolic 144–168; BP diastolic 81–109; PULSE 76–95; RESP 11–94; TEMP 36.6; O2SAT 91–99
[2020-11-14 05:48] LABS: Basophils # 0.1 10^3/uL (0.0-0.1); Basophils % 0.6 %; Eosinophils # 0.8 10^3/uL (0.0-0.8); Eosinophils % 9.3 %; Hematocrit 26.5 % (42.0-52.0); Lymphocytes # 0.5 10^3/uL (0.8-4.8); Lymphocytes % 5.2 %; Mean Corpuscular HGB Conc 30.2 g/dL (30.0-36.0); Mean Corpuscular Hemoglobin 28.2 pg (28.0-34.0); Mean Corpuscular Volume 93.3 fL (80-94); Mean Platelet Volume 11.4 fL (7.4-10.4); Monocytes # 0.8 10^3/uL (0.2-0.9); Neutrophils # 6.76 10^3/uL (1.8-7.7); Neutrophils % 75.3 %; Nucleated Red Blood Cells % 0 %; Platelet Count 118 10^3/cmm (130-400); Red Blood Count 2.84 10^6/uL (4.1-5.3); Red Cell Distribution Width 18.5 % (12.1-15.1)
[2020-11-14 06:09] LABS: Alanine Aminotransferase 6 U/L (0-41); Albumin Level 3.4 g/dL (3.5-5.2); Alkaline Phosphatase 80 IU/L (40-130); Anion Gap 16.1 (5-19); Aspartate Amino Transferase 21 U/L (0-40); Blood Urea Nitrogen 74 mg/dL (6-20); Calcium 7.7 mg/dL (8.5-10.5); Carbon Dioxide 28 mmol/L (22-29); Chloride 99 mmol/L (98-107); Globulin 3.2 g/dL (1.3-4.6); Glomerular Filtration Rate 16.9 mL/min (90-130); Glucose 88 mg/dL (65-115); Magnesium 1.9 mg/dL (1.7-2.3); Osmolality Calculated 309 mOsm/kg (285-295); Phosphorus 4.8 mg/dL (2.5-4.5); Potassium 4.1 mmol/L (3.5-5.1); Sodium 139 mmol/L (136-145); Total Bilirubin 0.5 mg/dL (0.15-1.2); Total Protein 6.6 g/dL (6.6-8.7)
[2020-11-14 06:58] LABS: Glucose Point of Care 88 mg/dL (70-110)
[2020-11-14] MEDS: heparin 5,000 unit/mL INJ 1 mL 5000 UNIT SUBCUT ×3 (09:34→23:09)
[2020-11-14] MEDS: bumetanide 0.25 mg/mL SDV 10 mL 2 MG IV ×2 (09:34→20:22)
[2020-11-14] MEDS: iron sucrose 200 MG in sodium chloride 0.9% (100 ml) 100 ML 220 MG IV (09:34)
[2020-11-14] MEDS: sevelamer 800 mg Tablet PO ×2 (09:35→18:21)
[2020-11-14] MEDS: metOLazone 5 MG Tablet PO (09:35)
[2020-11-14] MEDS: cholecalciferol (vitamin D3) 5,000 unit Tablet 5000 UNIT PO (09:35)
[2020-11-14] MEDS: isosorbide mononitrate ER 60 mg Tablet 120 MG PO (09:35)
[2020-11-14] MEDS: pantoprazole DR 40 mg Tablet PO ×2 (09:35→18:21)
[2020-11-14] MEDS: venlafaxine ER (24HR) 150 mg Capsule PO (09:35)
[2020-11-14] MEDS: atorvastatin 40 mg Tablet 80 MG PO (09:35)
--- NOTE | 2020-11-14 11:13 | PM.PN ---
Subjective Subjective: Interval history: He completed his third treatment of dialysis yesterday, much more easily, no nausea and vomiting. He is breathing comfortably on his nasal CPAP. Improving lower extremity edema. No uremic symptoms. Vitals/I&O/Wt Last Vital Signs Temp 97.8 F 11/14/20 07:04 Pulse 84 11/14/20 10:51 Resp 18 11/14/20 10:51 BP 146/96 11/14/20 10:51 Pulse Ox 93 11/14/20 10:51 11/13/20 11/14/20 11/14/20 22:59 06:59 14:59 Intake Total 400 / 960 240 / 240 Output Total 1750 / 1750 850 / 2600 Balance -1350 / -790 -850 / -1640 240 / 240 Physical Exam Narrative: EXAM NARRATIVE: Constitutional: Awake, comfortable HEENT: Wet mucosa, no jvp, non icteric Lungs: Bilaterally clear without discernible wheeze, rales in all lung zones CVS: S1 S2, no murmurs Abdo: Soft, BS ok Ext 4: 1-2+ edema, peripheral perfusion with no cyanosis Neurological: Grossly non-focal Urinary Catheter Management^: Melgar: Cath Placed During This Visit: yes Reason for Continuing Indwelling Catheter: Accurate Measurement of Urinary Output in Critically Ill Patients Urinary Catheter Date of Insertion: 11/11/20 Urinary Catheter Time of Insertion: 17:00 Data : 11/14/20 05:15 11/14/20 05:15 A&P Additional A&P Information 1. 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 Hemodyamics robust 3. Stable chemistry, well balanced 4. Anemia Procrit/Venofer dosing 5. Binders on board for hyperphos 6. Dispo Will be ok for DC when vocational case manager has set up outpatient HD John Peters MD Nephrology [phone] Patient seen and examined via telemedicine, with the assistance of the bedside RN > 25 min spent in evaluation and mgmt of patient Attestations Medical Necessity Statement*: eval for renal failure Coding Level of Care Code Acute Rotary Rock Drilling Machine Operator for Chg Franklin
[2020-11-14 11:18] LABS: Glucose Point of Care 102 mg/dL (70-110)
--- NOTE | 2020-11-14 12:05 | PM.PN ---
Subjective Subjective: Interval history: Patient was seen and examined today, no acute event overnight,deny any nausea and vomiting. Continue to be on HHFONC 75 % Fio2 40Ls as well as BIPAP at night. Vitals/I&O/Wt Last Vital Signs Temp 97.8 F 11/14/20 07:04 Pulse 86 11/14/20 11:19 Resp 18 11/14/20 11:19 BP 146/96 11/14/20 10:51 Pulse Ox 95 11/14/20 11:19 11/13/20 11/14/20 11/14/20 22:59 06:59 14:59 Intake Total 400 / 960 350 / 350 Output Total 1750 / 1750 850 / 2600 Balance -1350 / -790 -850 / -1640 350 / 350 Physical Exam Const: COMMON NORMALS: patient oriented x3 HENMT: COMMON NORMALS: normocephalic and atraumatic HEAD & SCALP: normocephalic and atraumatic Resp: COMMON NORMALS: clear to auscultation bilaterally EFFORT & INSPECTION: Yes symmetric chest movement AUSCULTATION: clear to auscultation bilaterally Cardio: COMMON NORMALS: regular rate, regular rhythm, S1 normal heart sound present, S2 normal heart sound present, No gallops present (Cardio), No murmurs present (Cardio), No rub (Cardio) and Peripheral pulses 2+ throughout RATE: regular rate RHYTHM: regular rhythm HEART SOUNDS: S1 normal heart sound present and S2 normal heart sound present PERIPHERAL PULSES: Peripheral pulses 2+ throughout GI: COMMON NORMALS: Normal to inspection, nondistended, normoactive bowel sounds present, Soft to palpation, non-tender, No hepatosplenomegaly present and no masses AUSCULTATION: Yes normoactive bowel sounds PALPATION: Yes Soft to palpation and Yes No hepatosplenomegaly present RECTAL EXAM: Yes deferred Extremity: NARRATIVE EXTREMITY EXAM: 2+ bilateral lower extremity pitting edema Neuro: COMMON NORMALS: patient oriented x3 Urinary Catheter Management^: Melgra: Cath Placed During This Visit: yes Reason for Continuing Indwelling Catheter: Accurate Measurement of Urinary Output in Critically Ill Patients Urinary Catheter Date of Insertion: 11/11/20 Urinary Catheter Time of Insertion: 17:00 Data : 11/14/20 05:15 11/14/20 05:15 A&P Assessment and plan (1) Respiratory failure with hypoxia and hypercapnia: Multifactorial, volume overload, COPD, decompensated heart failure with preserved ejection. Currently on BiPAP, monitor ABG, and x-ray chest. Continue Bumex 2 mg IV every 12 hours daily, continue metolazone 5 MG PO DAILY Continue Imdur 120 MG PO DAILY , continue atorvastatin 80 mg p.o. daily, Currently scheduled for hemodialysis, appreciate nephrology recommendations. 2 D echo : Normal left ventricular cavity size and possibly normal systolic function. Left ventricular ejection fraction is estimated at 60 %. This study is inadequate for estimation of regional wall motion normality. Grade II diastolic dysfunction, moderately elevated filling pressures. Moderate tricuspid valve regurgitation Repeat 2D Echo with contrast : Normal left ventricular size and systolic function. Left ventricular ejection fraction estimated at 60%. No diagnostic regional wall motion abnormality. Abnormal septal motion in systole consistent with increased right ventricular systolic pressure. Moderately to markedley dilated right ventrcile with moderately decreased right ventricular systolic function. [place] occupying right ventricle. Probably trivial pericardial effusion. Status: Acute (2) Acute encephalopathy: Resolved Acute metabolic encephalopathy likely secondary to uremia. Plan is 1 Status: Acute (3) Anemia: BRIGIDA anemia Anemia panel: Serum Iron : 37, TIBC : 327, % Saturation : 11.3, Ferritin : 150 S/P 2 units PRBC: H/H: 8.08/24 ALBERTO I.V Venofer 5 doses Monitor CBC. Status: Acute (4) Heart failure: Decompensated heart failure with preservation fraction. Plan is 1 Status: Acute (5) Hyperkalemia: Resolved Patient has received insulin and dextrose in the ER, currently undergoing hemodialysis. Repeat BMP, telemetry monitoring. Status: Acute (6) Elevated troponin: Chronically elevated troponin likely secondary demand ischemia. Status: Acute (7) End stage renal disease on dialysis: Newly started on dialysis 1 st dialysis session on 10/11.Has a right tunneled dialysis catheter. Status: Acute (8) Hypertension: Amlodipine 10 mg po daily Status: Acute (9) Diabetes: LDSSI Monitor FSG Status: Acute (10) COPD (chronic obstructive pulmonary disease): Status: Acute (11) Sinus bradycardia: Resolved Status: Acute (12) First degree heart block: Status: Acute (13) Vitamin D deficiency: 5000 u po D3 daily for 4 weeks Reevaluate 25 OH Vitamin D Level Status: Acute Attestations Medical Necessity Statement*: Patient needs to be in hospital for r/f with hypoxia and the need for dialysis Coding Level of Care Code Acute Wire Brush Operator for Chg Fwd Exam Detailed Diagnoses Respiratory failure with hypoxia and hypercapnia J96.91; J96.92 Acute encephalopathy G93.40 Anemia D64.9 Heart failure I50.9 Hyperkalemia E87.5 Elevated troponin R77.8 End stage renal disease on dialysis N18.6; Z99.2 Hypertension I10 Diabetes E11.9 COPD (chronic obstructive pulmonary disease) J44.9 Sinus bradycardia R00.1 First degree heart block I44.0 Vitamin D deficiency E55.9
[2020-11-14] MEDS: amlodipine 10 mg Tablet PO (14:03)
--- NOTE | 2020-11-14 16:00 | PC.NURSE ---
pt would like to wash up tonight and would need help washing thank u
--- NOTE | 2020-11-14 16:02 | PC.NURSE ---
pt would like to get washed up tonight and would need help doing so thank you
[2020-11-14 16:35] LABS: Glucose Point of Care 128 mg/dL (70-110)
[2020-11-14 20:31] LABS: Glucose Point of Care 122 mg/dL (70-110)
[2020-11-14] MEDS: tamsulosin 0.4 mg Capsule 0.8 MG PO (20:50)
[2020-11-14] MEDS: OLANZapine 5 mg TABLET 2.5 MG PO (20:50)
[2020-11-15] VITALS (15 sets, daily range): BP systolic 162–170; BP diastolic 86–95; PULSE 73–99; RESP 12–33; TEMP 36.4–36.9; O2SAT 90–95
[2020-11-15 04:22] LABS: Basophils # 0.1 10^3/uL (0.0-0.1); Basophils % 0.6 %; Eosinophils # 0.9 10^3/uL (0.0-0.8); Eosinophils % 11.6 %; Hematocrit 25.3 % (42.0-52.0); Hemoglobin 7.5 g/dL (11.7-16.6); Lymphocytes # 0.6 10^3/uL (0.8-4.8); Lymphocytes % 6.9 %; Mean Corpuscular HGB Conc 29.6 g/dL (30.0-36.0); Mean Corpuscular Hemoglobin 27.7 pg (28.0-34.0); Mean Corpuscular Volume 93.4 fL (80-94); Mean Platelet Volume 11.2 fL (7.4-10.4); Monocytes # 0.9 10^3/uL (0.2-0.9); Monocytes % 10.7 %; Neutrophils # 5.54 10^3/uL (1.8-7.7); Neutrophils % 69.9 %; Nucleated Red Blood Cells % 0 %; Platelet Count 132 10^3/cmm (130-400); Red Blood Count 2.71 10^6/uL (4.1-5.3); Red Cell Distribution Width 18.6 % (12.1-15.1); White Blood Count 7.9 10^3/uL (4.0-10.0)
[2020-11-15 04:36] LABS: Anion Gap 15.1 (5-19); Blood Urea Nitrogen 77 mg/dL (6-20); Carbon Dioxide 29 mmol/L (22-29); Chloride 99 mmol/L (98-107); Glucose 107 mg/dL (65-115); Osmolality Calculated 311 mOsm/kg (285-295); Potassium 4.1 mmol/L (3.5-5.1); Sodium 139 mmol/L (136-145)
[2020-11-15 06:52] LABS: Glucose Point of Care 113 mg/dL (70-110)
[2020-11-15] MEDS: heparin 5,000 unit/mL INJ 1 mL 5000 UNIT SUBCUT ×3 (07:56→21:31)
[2020-11-15] MEDS: bumetanide 0.25 mg/mL SDV 10 mL 2 MG IV ×2 (07:58→21:34)
--- NOTE | 2020-11-15 08:58 | PC.NURSE ---
Patient to dialysis at 0805. VSS, A&Ox4. No needs identified at this time.
[2020-11-15] MEDS: sevelamer 800 mg Tablet PO ×2 (10:21→17:49)
[2020-11-15] MEDS: cholecalciferol (vitamin D3) 5,000 unit Tablet 5000 UNIT PO (10:21)
[2020-11-15] MEDS: metOLazone 5 MG Tablet PO (10:21)
[2020-11-15] MEDS: venlafaxine ER (24HR) 150 mg Capsule PO (10:21)
[2020-11-15] MEDS: pantoprazole DR 40 mg Tablet PO ×2 (10:21→17:49)
[2020-11-15] MEDS: isosorbide mononitrate ER 60 mg Tablet 120 MG PO (10:22)
[2020-11-15] MEDS: atorvastatin 40 mg Tablet 80 MG PO (10:22)
[2020-11-15] MEDS: amlodipine 10 mg Tablet PO (10:22)
[2020-11-15] MEDS: iron sucrose 200 MG in sodium chloride 0.9% (100 ml) 100 ML 220 MG IV (10:30)
[2020-11-15 11:28] LABS: Glucose Point of Care 163 mg/dL (70-110)
--- NOTE | 2020-11-15 11:36 | PM.PN ---
Subjective Subjective: Interval history: Seen and examined on dialysis, tolerating the therapy well with no new complaints. Improving lower extremity edema. No uremic symptoms. Vitals/I&O/Wt Last Vital Signs Temp 98.2 F 11/15/20 07:21 Pulse 93 11/15/20 07:56 Resp 20 H 11/15/20 07:56 BP 162/86 11/15/20 07:21 Pulse Ox 93 11/15/20 07:56 11/14/20 11/15/20 11/15/20 22:59 06:59 14:59 Intake Total 220 / 810 230 / 230 Output Total 1999 1475 / 3475 Balance -1780 / -1190 -1475 / -2665 230 / 230 Physical Exam Narrative: EXAM NARRATIVE: Constitutional: Awake, comfortable HEENT: Wet mucosa, no jvp, non icteric Lungs: Bilaterally clear without discernible wheeze, rales in all lung zones CVS: S1 S2, no murmurs Abdo: Soft, BS ok Ext 4: 1-2+ edema, peripheral perfusion with no cyanosis Neurological: Grossly non-focal Urinary Catheter Management^: Melgar: Cath Placed During This Visit: yes Reason for Continuing Indwelling Catheter: Accurate Measurement of Urinary Output in Critically Ill Patients Urinary Catheter Date of Insertion: 11/11/20 Urinary Catheter Time of Insertion: 17:00 Data : 11/15/20 03:53 11/15/20 03:53 A&P Additional A&P Information 1. 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 Hemodyamics robust 3. Stable chemistry, well balanced 4. Anemia Undergoing Venofer dosing 5. Binders on board for hyperphos 6. Dispo Will be ok for DC when case management associate has set up outpatient HD John Peters MD Nephrology [phone] Patient seen and examined via telemedicine, with the assistance of the bedside RN > 25 min spent in evaluation and mgmt of patient Attestations Medical Necessity Statement*: eval for ESRD mgmt Coding Level of Care Code Acute Transition Nurse for Chg Franklin
--- NOTE | 2020-11-15 11:49 | PM.PN ---
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 Improving, currently on 4lpm NC which is home requirement Continue Bumex 2 mg IV every 12 hours daily, continue metolazone 5 MG PO DAILY Planned for HD today Status: Acute (2) Acute encephalopathy: Resolved Acute metabolic encephalopathy likely secondary to uremia. Now resolved after HD Status: Acute (3) Anemia: BRIGIDA anemia Anemia panel: Serum Iron : 37, TIBC : 327, % Saturation : 11.3, Ferritin : 150 S/P 2 units PRBC: H/H: 8.1/26 ALBERTO I.V Venofer 5 doses Monitor CBC. Status: Acute (4) Heart failure: Decompensated heart failure with preservation fraction. Plan is 1 Status: Acute (5) Hyperkalemia: Resolved Patient has received insulin and dextrose in the ER, currently undergoing hemodialysis. Repeat BMP, telemetry monitoring. Status: Acute (6) Elevated troponin: Chronically elevated troponin likely secondary demand ischemia. Status: Acute (7) End stage renal disease on dialysis: Newly started on dialysis 1 st dialysis session on 10/11.Has a right tunneled dialysis catheter. Status: Acute (8) Hypertension: Amlodipine 10 mg po daily Status: Acute (9) Diabetes: LDSSI Monitor FSG Status: Acute (10) COPD (chronic obstructive pulmonary disease): Status: Acute (11) Sinus bradycardia: Resolved Status: Acute (12) First degree heart block: no acute issues Status: Acute (13) Vitamin D deficiency: 5000 u po D3 daily for 4 weeks Reevaluate 25 OH Vitamin D Level Status: Acute Additional A&P Information Deconditioing: PT assessment , will benefit from home health DVT ppx: Heparin Full code Attestations Medical Necessity Statement*: HD today, PT assessmetn Coding Level of Care Code Acute Computer Systems Consultant for Chg Fwd Diagnoses Respiratory failure with hypoxia and hypercapnia J96.91; J96.92 Acute encephalopathy G93.40 Anemia D64.9 Heart failure I50.9 Hyperkalemia E87.5 Elevated troponin R77.8 End stage renal disease on dialysis N18.6; Z99.2 Hypertension I10 Diabetes E11.9 COPD (chronic obstructive pulmonary disease) J44.9 Sinus bradycardia R00.1 First degree heart block I44.0 Vitamin D deficiency E55.9
--- NOTE | 2020-11-15 14:20 | PC.NURSE ---
pt espinal had came open and alot leaked out on floor
[2020-11-15 16:27] LABS: Glucose Point of Care 131 mg/dL (70-110)
[2020-11-15 20:30] LABS: Glucose Point of Care 196 mg/dL (70-110)
[2020-11-15] MEDS: OLANZapine 5 mg TABLET 2.5 MG PO (21:26)
[2020-11-15] MEDS: tamsulosin 0.4 mg Capsule 0.8 MG PO (21:29)
[2020-11-15] MEDS: oxyCODONE-APAP 5-325 mg Tablet 1 TAB PO (21:30)
[2020-11-16] VITALS (7 sets, daily range): BP systolic 147–167; BP diastolic 93–97; PULSE 89–102; RESP 16–20; TEMP 36.6–36.7; O2SAT 89–96
[2020-11-16 05:05] LABS: Basophils # 0.1 10^3/uL (0.0-0.1); Basophils % 0.7 %; Eosinophils # 0.9 10^3/uL (0.0-0.8); Eosinophils % 11.5 %; Hematocrit 25.2 % (42.0-52.0); Hemoglobin 7.6 g/dL (11.7-16.6); Lymphocytes # 0.6 10^3/uL (0.8-4.8); Lymphocytes % 7.4 %; Mean Corpuscular HGB Conc 30.2 g/dL (30.0-36.0); Mean Corpuscular Hemoglobin 27.9 pg (28.0-34.0); Mean Corpuscular Volume 92.6 fL (80-94); Monocytes # 0.8 10^3/uL (0.2-0.9); Neutrophils # 5.31 10^3/uL (1.8-7.7); Neutrophils % 69.1 %; Nucleated Red Blood Cells % 0 %; Platelet Count 143 10^3/cmm (130-400); Red Blood Count 2.72 10^6/uL (4.1-5.3); Red Cell Distribution Width 18.3 % (12.1-15.1); White Blood Count 7.7 10^3/uL (4.0-10.0)
[2020-11-16 05:38] LABS: Anion Gap 13.8 (5-19); Blood Urea Nitrogen 67 mg/dL (6-20); Calcium 8.3 mg/dL (8.5-10.5); Carbon Dioxide 30 mmol/L (22-29); Chloride 101 mmol/L (98-107); Glomerular Filtration Rate 16.9 mL/min (90-130); Glucose 162 mg/dL (65-115); Osmolality Calculated 315 mOsm/kg (285-295); Potassium 3.8 mmol/L (3.5-5.1); Sodium 141 mmol/L (136-145)
[2020-11-16 06:50] LABS: Glucose Point of Care 179 mg/dL (70-110)
[2020-11-16] MEDS: bumetanide 0.25 mg/mL SDV 10 mL 2 MG IV (08:53)
[2020-11-16] MEDS: heparin 5,000 unit/mL INJ 1 mL 5000 UNIT SUBCUT (08:55)
[2020-11-16] MEDS: isosorbide mononitrate ER 60 mg Tablet 120 MG PO (08:57)
[2020-11-16] MEDS: atorvastatin 40 mg Tablet 80 MG PO (08:57)
[2020-11-16] MEDS: venlafaxine ER (24HR) 150 mg Capsule PO (08:57)
[2020-11-16] MEDS: cholecalciferol (vitamin D3) 5,000 unit Tablet 5000 UNIT PO (08:57)
[2020-11-16] MEDS: pantoprazole DR 40 mg Tablet PO (08:57)
[2020-11-16] MEDS: sevelamer 800 mg Tablet PO (08:57)
[2020-11-16] MEDS: iron sucrose 200 MG in sodium chloride 0.9% (100 ml) 100 ML 220 MG IV (08:58)
[2020-11-16] MEDS: metOLazone 5 MG Tablet PO (08:58)
[2020-11-16] MEDS: amlodipine 10 mg Tablet PO (08:59)
--- NOTE | 2020-11-16 10:01 | PC.CHAP ---
Pastoral Care Encounter/Spiritual Assessment Type of Contact [] Declined concrete pourer visit [] Patient/Family/Request visit [] Outpatient visit [] Follow-up visit [] Physician referral [] Code/Alert [x] Routine visit [] Staff referral [] Actively dying [] Patient sleeping [x] Family support [] [] Out of room [] Palliative care [] [] Receiving care in room [] Pre-surgical visit [] Trauma [] Long length of stay [] ICU visit [] Other: Relational/Emotional Strength [] Patient feels connected with others/family/visitors/staff [] Distress [] Loneliness/isolation [] Abandonment Spirituality of Patient [] Person of Lizabeth [] Attends Jewish of their Lizabeth [] Believes in Prayer [] Reads Bible or Congregation materials [] There are Spiritual issues to be addressed Seed Laboratory Assistant Interventions [x] Prayer [x] Active listening [x] Non-anxious presence [x] Spiritual/emotional support [] Crisis/trauma care [] Spiritual counseling [] Bereavement support [] Provided bereavement packet [] Provided Bible/devotional materials [] Provided toy/stuffed animal, coloring book to patient or family member [] Provided Communion [] Anointing/[place] [] Salvation [x] Completed spiritual assessment [] Other: Impact on Illness or Injury [] Angry [] Fearful [] Anxious [] Often cries [] Exhaustion [] Unable to work [] Unable to attend synagogue [] Unable to walk/stand [] Unable to read [] Unable to drive [] Unable to eat/drink [] Unable to sleep [] Unable to be with family [] Patient intubated [] Other: Summary patient states he has been in and out of hospitals sense the beginning of the year.. looking for healing, answers, Time spent with patient 10 min
--- NOTE | 2020-11-16 10:58 | P.PN_ITS ---
Subjective Subjective: Interval history: Some dyspnea and increased LE edema today. Dialysis cut short yesterday due to technical issues with the equipment. No uremic symptoms. Vitals/I&O/Wt Last Vital Signs Temp 97.9 F 11/16/20 07:24 Pulse 94 11/16/20 08:43 Resp 20 H 11/16/20 08:43 BP 167/93 11/16/20 07:24 Pulse Ox 92 11/16/20 08:43 11/15/20 11/16/20 11/16/20 22:59 06:59 14:59 Intake Total 390 / 620 240 / 860 350 / 350 Output Total 825 / 1825 1600 / 3425 Balance -435 / -1205 -1360 / -2565 350 / 350 Physical Exam Narrative: EXAM NARRATIVE: Constitutional: Awake, comfortable HEENT: Wet mucosa, no jvp, non icteric Lungs: Bilaterally clear without discernible wheeze, rales in all lung zones CVS: S1 S2, no murmurs Abdo: Soft, BS ok Ext 4: 1-2+ edema, peripheral perfusion with no cyanosis Neurological: Grossly non-focal Urinary Catheter Management^: Melgar: Cath Placed During This Visit: yes Reason for Continuing Indwelling Catheter: Acute Urinary Retention or Obstruction Urinary Catheter Date of Insertion: 11/11/20 Urinary Catheter Time of Insertion: 17:00 Data : 11/16/20 04:30 11/16/20 04:30 A&P Additional A&P Information 1. 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 Hemodyamics robust 3. Stable chemistry, well balanced 4. Anemia Undergoing Venofer dosing 5. Binders on board for hyperphos 6. Dispo Will be ok for DC when director of casework department has set up outpatient HD John Peters MD Nephrology [phone] Patient seen and examined via telemedicine, with the assistance of the bedside RN > 25 min spent in evaluation and mgmt of patient Attestations Medical Necessity Statement*: Eval for ESRD mgmt Coding Level of Care Code Acute Button Machine Operator for Chg Franklin
[2020-11-16 11:29] LABS: Glucose Point of Care 138 mg/dL (70-110)
--- NOTE | 2020-11-16 16:21 | P.DS_ITS ---
Discharge Providers Date of Admission: 11/11/20 14:55 Date of Discharge: November 16, 2020 Attending Provider at Admission: Paul Freeman MD Attending Provider at Discharge: Jacqui Ascencio MD Primary Care Provider: Sulma Wetzel MD Diagnoses at Discharge Discharge Diagnosis (1) Respiratory failure with hypoxia and hypercapnia: Status: Acute (2) Acute encephalopathy: Status: Acute (3) Anemia: Status: Acute (4) Heart failure: Status: Acute (5) Hyperkalemia: Status: Acute (6) Elevated troponin: Status: Acute (7) End stage renal disease on dialysis: Status: Acute (8) Hypertension: Status: Acute (9) Diabetes: Status: Acute (10) COPD (chronic obstructive pulmonary disease): Status: Acute (11) Sinus bradycardia: Status: Acute (12) First degree heart block: Status: Acute (13) Vitamin D deficiency: Status: Acute Reason for Visit Reason for Visit: GENERALIZED WEAKNESS Hospital Course Hospital Course Akil Velasco is a 50 year old male with past medical history of hypertension , diabetes , heart failure with preserved ejection fraction, end-stage renal disease dialysis dependent, Covid pneumonia survivor, COPD, abdominal catheter placement on November 10, 2020 and presented to the hospital on November 11, 2020 with chief complaints of shortness of breath, generalized weakness confusion and dizziness. He was diagnosed with hypoxic and hypercapnic respiratory failure which was thought to be multifactorial related to volume overload, COPD, decompensated heart failure with preserved ejection fraction. Initially on BiPAP and an inpatient, gradually weaned down during course of admission down to 4 L/min nasal cannula which is also his home requirement. He received diuresis with Bumex metolazone and dialysis was initiated.. He tolerated dialysis sessions well. He is being discharged today in improved condition with recommendations to continue dialysis as outpatient at [facility] on Wednesdays and Sunday. 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 Urinary Catheter Management^: Melgar: Cath Placed During This Visit: yes Reason for Continuing Indwelling Catheter: Acute Urinary Retention or Obstruction Urinary Catheter Date of Insertion: 11/11/20 Urinary Catheter Time of Insertion: 17:00 Discharge Data Data Completed and Pending: Completed Studies During Hospitalization Category Date Time Status XR chest 1V jonas ble [id number] Routine Exams 11/12/20 16:32 Completed XR chest 1V jonas ble [id number] Urgent Exams 11/11/20 13:11 Completed CV echo complete* [id number] Routine Ultrasound 11/12/20 05:00 Completed CV echo lmt wo/w contras [id number] Rout ine Ultrasound 11/13/20 16:26 Completed US/CV paperwork R outine Ultrasound 11/13/20 Completed Pending at discharge Category Date Time Status Basic Metabolic P arslan AM LABS Lab 11/17/20 04:00 Ordered Complete Blood Co unt w/Auto AM LABS Lab 11/17/20 04:00 Ordered Labs from last 24 hours 11/16/20 11/16/20 11/16/20 11:01 06:37 04:30 WBC RBC Hgb Hct MCV MCH MCHC RDW Plt Count MPV Neut % (Auto) Lymph % (Auto) [place] % (Auto) Eos % (Auto) Baso % (Auto) Neut # (Auto) Lymph # (Auto) [place] # (Auto) Eos # (Auto) Baso # (Auto) Nucleated RBC % (a uto) Nucleated RBCs # Sodium 141 Potassium 3.8 Chloride 101 Carbon Dioxide 30 H Anion Gap 13.8 BUN 67 H Creatinine 3.8 H GFR Calculation 16.9 L Glucose 162 H POC Glucose 138 H 179 H Calculated Osmolal ity 315 H Calcium 8.3 L 11/16/20 11/15/20 11/15/20 04:30 20:00 16:18 WBC 7.7 RBC 2.72 L Hgb 7.6 L Hct 25.2 L MCV 92.6 MCH 27.9 L MCHC 30.2 RDW 18.3 H Plt Count 143 MPV 11.0 H Neut % (Auto) 69.1 Lymph % (Auto) 7.4 [place] % (Auto) 11.0 Eos % (Auto) 11.5 Baso % (Auto) 0.7 Neut # (Auto) 5.31 Lymph # (Auto) 0.6 L [place] # (Auto) 0.8 Eos # (Auto) 0.9 H Baso # (Auto) 0.1 Nucleated RBC % (a uto) 0 Nucleated RBCs # 0.0 Sodium Potassium Chloride Carbon Dioxide Anion Gap BUN Creatinine GFR Calculation Glucose POC Glucose 196 H 131 H Calculated Osmolal ity Calcium Vitals: Last Vital Signs Temp 98.0 F 11/16/20 16:00 Pulse 102 H 11/16/20 16:00 Resp 18 11/16/20 16:00 BP 165/97 11/16/20 16:00 Pulse Ox 93 11/16/20 16:00 Discharge Plan Discharge Patient Disposition: Home Condition: Stable Prescriptions: Continued atorvastatin 80 mg tablet 80 mg PO DAILY RF: 0 carvedilol 25 mg tablet 25 mg PO BID RF: 0 Lantus U-100 Insulin 100 unit/mL solution 15 unit SUBCUT DAILY RF: 0 bumetanide 2 mg tablet 2 mg PO DAILY RF: 0 clonidine HCl 0.3 mg tablet 0.3 mg PO TID RF: 0 olanzapine 5 mg tablet 2.5 mg PO BEDTIME RF: 0 metolazone 5 mg tablet 5 mg PO DAILY RF: 0 venlafaxine 150 mg capsule,extended release 24hr 150 mg PO DAILY RF: 0 isosorbide mononitrate 120 mg tablet extended release 24 hr 120 mg PO DAILY RF: 0 alprazolam 0.5 mg tablet 0.5 mg PO DAILY PRN (Reason: Anxiety) RF: 0 citalopram 20 mg tablet 20 mg PO DAILY RF: 0 tamsulosin 0.4 mg capsule 0.8 mg PO BEDTIME RF: 0 sodium bicarbonate 650 mg tablet 650 mg PO TID RF: 0 amlodipine 10 mg tablet 10 mg PO DAILY RF: 0 hydralazine 100 mg tablet 100 mg PO TID RF: 0 pantoprazole 40 mg tablet,delayed release (DR/EC) 40 mg PO BID RF: 0 gabapentin 300 mg capsule 300 mg PO BID RF: 0 Humalog U-100 Insulin 100 unit/mL solution See Rx Instructions .ROUTE .COMPLEX RF: 0 sevelamer carbonate 800 mg tablet 800 mg PO BID RF: 0 Tresiba FlexTouch U-100 100 unit/mL (3 mL) insulin pen 40 unit SUBCUT DAILY RF: 0 Discharge Orders: Discharge Order (Routine); Ordered 11/16/20 Ordered By: Jacqui Ascencio Discharge Diet: Usual diet Discharge Activity: Resume usual activity and As per PT/OT instructions Patient Instructions: Opioid Safety Discharge Attestations Time Spent in Discharge Care*: greater than 30 min Specific Discharge Activities: educating patient and discussing with block and case maker/social workers/dc planners Quality Metrics Clinical Quality Measures During this hospital stay, did patient experience: None Coding Level of Care Code Acute Chg FW DC note Diagnoses Respiratory failure with hypoxia and hypercapnia J96.91; J96.92 Acute encephalopathy G93.40 Anemia D64.9 Heart failure I50.9 Hyperkalemia E87.5 Elevated troponin R77.8 End stage renal disease on dialysis N18.6; Z99.2 Hypertension I10 Diabetes E11.9 COPD (chronic obstructive pulmonary disease) J44.9 Sinus bradycardia R00.1 First degree heart block I44.0 Vitamin D deficiency E55.9
[2020-11-16 16:31] LABS: Glucose Point of Care 132 mg/dL (70-110)
--- NOTE | 2020-11-16 18:21 | PC.NURSE ---
Discharge instructions given per the physician's instructions. Patient verbalized understanding of teaching, did not have any further questions.
== END 2020-11-16 17:10 | disposition home health service (06) | DRG 291 ==
LOC: ER 13:30 → ICU 15:11 → CSU 11-13 17:53
PROVIDERS: Internal Medicine Nephrology; Admitting Provider Internal Medicine; Emergency Provider Family Medicine; PCP Internal Medicine; Visit Provider Student in an Organized Health Care Education/Training Program
DX: I13.2 Hypertensive heart and chronic kidney disease with heart failure and with stage 5 chronic kidney disease, or end stage renal disease (principal); J96.02 Acute respiratory failure with hypercapnia; J96.01 Acute respiratory failure with hypoxia; G93.41 Metabolic encephalopathy; I50.33 Acute on chronic diastolic (congestive) heart failure; N18.6 End stage renal disease; Z68.41 Body mass index [BMI] 40.0-44.9, adult; E87.4 Mixed disorder of acid-base balance; E11.22 Type 2 diabetes mellitus with diabetic chronic kidney disease; I95.9 Hypotension, unspecified; J44.9 Chronic obstructive pulmonary disease, unspecified; Z86.16 Personal history of COVID-19; E66.9 Obesity, unspecified; D63.1 Anemia in chronic kidney disease; E87.5 Hyperkalemia; I44.0 Atrioventricular block, first degree; E55.9 Vitamin D deficiency, unspecified; D50.9 Iron deficiency anemia, unspecified; Z79.4 Long term (current) use of insulin
CPT/HCPCS: 36415; 36416; 36430; 36600; 51702; 71045; 80048; 80051; 80053; 81001; 82306; 82310; 82330; 82436; 82728; 82805; 82962; 83540; 83550; 83605; 83735; 83880; 83970; 84100; 84133; 84145; 84300; 84443; 84484; 85025; 85610; 86706; 86803; 86850; 86900; 86920; 87040; 87340; 90935; 93005; 93306; 94660; 96365; 96367; 96372; 96375; 97110; 97116; 97163; 97165; 97530; 99291; C8924; J1644; J1756; J1815; J1940; J2405; J2765; J3490; P9016; Q3014; Q4081; Q9956

== ENCOUNTER 2020-11-29 08:30 | Outpatient (CLI) | payer MEDICAID, SELFPAY | END 2020-11-29 08:31 | disposition home or self-care (01) | LOC: WOUND 08:32 | PROVIDERS: PCP Internal Medicine; Visit Provider Nurse Practitioner Family | DX: I11.0 Hypertensive heart disease with heart failure (principal); I50.9 Heart failure, unspecified; N19 Unspecified kidney failure; E11.9 Type 2 diabetes mellitus without complications | CPT/HCPCS: G0463 ==

== ENCOUNTER 2021-01-05 11:56 | Inpatient (IN) | payer MEDICAID, SELFPAY ==
[2021-01-05] VITALS (17 sets, daily range): BP systolic 108–159; BP diastolic 55–93; PULSE 52–67; RESP 10–22; TEMP 36.4–36.7; O2SAT 80–100; BMI 39.5
--- NOTE | 2021-01-05 12:04 | ECG_ITS ---
[facility] Test Date: 2021-01-05 Pat Name: Akil Velasco Department: Room: Gender: Male Director Of Land Acquisition: : 1970 Requested By: Jerry Mario Order Number: [id number] MD: Rosie Ivey M.D. Measurements Intervals [place] Rate: 62 P: 61 NC: 193 QRS: 121 QRSD: 101 T: 37 QT: 430 QTc: 439 Interpretive Statements SINUS RHYTHM POSSIBLE RIGHT VENTRICULAR HYPERTROPHY [SOME/ALL OF: PROMINENT R IN V1, LATE TRANSITION, RAD, JEROME, SSS] Compared to ECG 10/04/2020 23:20:19 Ventricular premature complex(es) no longer present Myocardial infarct finding no longer present Electronically Signed On 01-05-2021 16:26:57 CDT by Rosie Ivey M.D. [email or web address]
--- NOTE | 2021-01-05 12:04 | XR_ITS ---
WS: [id number] Portable AP upright chest, 01/05/2021 Clinical Data: dyspnea/cough Comparison: Portable chest, 11/12/2020. Findings: No nodules, masses or effusions are seen. The heart is enlarged. The pulmonary vascularity is not increased. No pneumonia or pneumothorax is seen. There is a dialysis catheter in good position . Monitor leads are on the chest wall. XR/XR chest 1V portable [id number] Impression: Cardiomegaly.
[2021-01-05 12:27] LABS: ABG PH Result 7.25 (7.35-7.45); Arterial Blood Gas Hematocrit 31.6 % (42-52); Base Excess ABG -1.7 mmol/L (-2.0-2.0); Blood Gas Allen Test Pos; Blood Gas Sample Type Arterial; Carboxyhemoglobin 1.6 %THgb (0.4-20.1); HCO3 ABG 26.3 mmol/L (22-26); HGB O2 Sat 88.6 % (95-100); Ionized Calcium Level - ABG 1.2 mmol/L (1.1-1.4); Methemoglobin 1.1 % (0.4-1.5); Oxygen Saturation ABG 91.1; PO2 ABG 66.7 mmHg (80.0-100.0); Potassium Level - ABG 4.6 mmol/L (3.5-5.0); Total Hemoglobin 10.3 g/dL (14-18)
[2021-01-05 12:28] LABS: Alveolar-Arterial Oxygen Gradi 15.2 mmHg (5-10); Blood Gas Operator Identificat ED; Blood Gas Sample Site Radial, right; Oxygen Device NC
[2021-01-05 12:29] LABS: ABG PCO2 60.5 mmHg (35-45)
[2021-01-05 12:33] LABS: Basophils % 0.7 %; Eosinophils # 0.6 10^3/uL (0.0-0.8); Eosinophils % 10.2 %; Hematocrit 31.9 % (42.0-52.0); Lymphocytes # 0.4 10^3/uL (0.8-4.8); Lymphocytes % 6.7 %; Mean Corpuscular HGB Conc 31.3 g/dL (30.0-36.0); Mean Corpuscular Hemoglobin 29.4 pg (28.0-34.0); Mean Corpuscular Volume 93.8 fL (80-94); Mean Platelet Volume 12.4 fL (7.4-10.4); Monocytes # 0.4 10^3/uL (0.2-0.9); Monocytes % 7.8 %; Neutrophils # 4.06 10^3/uL (1.8-7.7); Neutrophils % 73.7 %; Nucleated Red Blood Cells % 0 %; Platelet Count 91 10^3/cmm (130-400); Red Cell Distribution Width 16.6 % (12.1-15.1); White Blood Count 5.5 10^3/uL (4.0-10.0)
--- NOTE | 2021-01-05 12:34 | CT_ITS ---
WS: [id number] CT CHEST ANGIOGRAPHY WITH REFORMATS HISTORY: hypoxia TECHNIQUE: Contiguous axial images are obtained through the chest during arterial injection of intrav enous contrast. Images are reconstructed to evaluate the pulmonary arteries. MIP imaging also reviewe d. All CT scans at [facility] use at least one of these dose optimization techniques: aut omated exposure control; mA and/or kV adjustment per patient size (includes targeted exams where dose is matched to clinical indication); or iterative reconstruction. CONTRAST: Visipaque 320; 95 mL IV. DLP: 2802.11 mGy.cm COMPARISON: 04/14/2020 Limited opacification of the pulmonary arteries. Centrally and into the proximal lobar branches no pu lmonary embolism. Normal size pulmonary artery. No definite RIGHT heart strain. The heart is enlarged . There is a small pericardial effusion. Mild atherosclerosis aorta. Small mediastinal and hilar lymp h nodes. Mild pulmonary venous congestion. No dense consolidation or pneumonia. No significant pleura l effusion. Mild tricuspid regurgitation into hepatic veins. There is mild diffuse anasarca. Hepatic steatosis an d hepatomegaly. RIGHT subclavian dialysis catheter. CT/CT angio chest PE protcl [id number] IMPRESSION: 1. Limited opacification of the pulmonary arteries. No central pulmonary embol i. 2. Soft tissue anasarca and mild pulmonary edema. 3. Marked cardiomegaly and a small pericardial effusion.
[2021-01-05 12:42] LABS: Ketone (Acetest) Serum Negative (Negative)
[2021-01-05 12:51] LABS: Alanine Aminotransferase 40 U/L (0-41); Albumin Level 3.5 g/dL (3.5-5.2); Alkaline Phosphatase 90 IU/L (40-130); Potassium 4.6 mmol/L (3.5-5.1)
--- NOTE | 2021-01-05 12:51 | ED_ITS ---
HPI - Syncope General: Chief Complaint: Syncope Stated Complaint: SYNCOPE Time Seen by Provider: 01/05/21 12:04 History of Present Illness: HPI narrative: 50-year-old male presents emergency room after syncopal episode while on hemodialysis this morning. He states he can remember everything that happened he could hear people but he could not really respond on arrival here he is requiring oxygen. He says he previously did not require oxygen and earlier this year he was hospitalized for Covid and requires at night since then however now he is requiring it during the day. MD complaint: almost passed out Onset (ago): minute(s) Duration of episode: 30 Prodromal symptoms: lightheaded Witnessed: Yes - by Bystander Context: at rest Injuries sustained associated with event: none Associated symptoms: Reports short of breath and weakness; Deny abdominal pain, chest pain, fever(s), headache(s), lightheadedness, nausea or vertigo Treatments prior to arrival: other (Oxygen) Review of Systems Const: Denies: fever(s) ENMT: Denies: throat pain, ear or mastoid pain, nasal discharge or nasal congestion Card: Denies: chest pain or lightheadedness Resp: Denies: dyspnea, productive cough or non-productive cough GI: Denies: abdominal pain or nausea : Denies: flank pain, dysuria, urinary frequency or urinary urgency Skin/Breast: Denies: rash or pruritus Neuro: Denies: headache(s) or vertigo PFS ED PFSH: Medical History Accelerated hypertension Acute on chronic diastolic (congestive) heart failure Acute respiratory failure with hypoxia Acute respiratory failure with hypoxia and hypercapnia Nwupm-xs-[id number] kidney injury Anasarca Anemia ARDS (adult respiratory distress syndrome) Cancer Cardiac arrest Cataract (lens) fragments in eye following cataract surgery, bilateral CHF (congestive heart failure), NYHA class III Chronic kidney disease Chronic kidney disease, stage IV (severe) CKD stage 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 Congestive cardiac failure Diabetes Fracture of fifth metatarsal bone of left foot Fracture of fourth metatarsal bone of left foot Hypertension Laceration Metabolic alkalosis Neuropathy Pneumonia due to 2019-nCoV PVD (peripheral vascular disease) Renal cell carcinoma History bilateral renal cell carcinoma 2007 then recurrence on the contralateral side 2011. No recurrence for long-term follow-up with some suspicion on CT scan April 2020. Type 2 diabetes mellitus with diabetic polyneuropathy Urinary retention Surgical History H/O partial nephrectomy bilateral Hx of lymph node excision Family History Father , AT AGE 65 Diabetes Cancer Metastatic prostate cancer to liver Mother , AT AGE 72 Diabetes Grandfather Diabetes Cancer Other Hyperlipidemia Social History Smoking and tobacco status: never smoked Second hand smoke exposure: Yes Smoking risk assessment/counseling performed?: Yes Alcohol intake: current Alcohol intake frequency: holidays/special occasions only Lives independently: Yes Household members: spouse Housing: House Marital status: service: No Current occupational status: retired Pets and animals: Yes History of recent travel: No Current gender identity: Male Physical Exam Const: GENERAL APPEARANCE: cooperative and comfortable ORIENTATION/CONSCIOUSNESS: Yes oriented to person, Yes oriented to place and Yes oriented to time HENMT: COMMON NORMALS: normocephalic, atraumatic, hearing grossly normal bilaterally and external ears normal HEAD & SCALP: normocephalic and atraumatic EXTERNAL EAR: Yes external ears normal Neck/C-Spine: COMMON NORMALS: no JVD Resp: AUSCULTATION: crackles and wheezes Cardio: COMMON NORMALS: no JVD, regular rate, regular rhythm and No murmurs present (Cardio) RATE: regular rate RHYTHM: regular rhythm GI: COMMON NORMALS: Soft to palpation and No hepatosplenomegaly present AUSCULTATION: Yes normoactive bowel sounds PALPATION: Yes Soft to palpation, No Tenderness to palpation present (GI), No Guarding due to palpation present (GI) and Yes No hepatosplenomegaly present Extremity: COMMON NORMALS: normal to inspection, capillary refill normal and no calf tenderness Neuro: SENSORIUM/ORIENTATION: Yes oriented to person, Yes oriented to place and Yes oriented to time Skin: COMMON NORMALS: no rashes or lesions noted GENERAL SKIN EXAM: no rashes or lesions noted Course Vital Signs: Vital signs: Vital Signs Temperature 98.0 F 01/05/21 11:56 Pulse Rate 56 L 01/05/21 15:53 Respiratory Rate 16 01/05/21 15:53 Blood Pressure 136/74 01/05/21 15:53 Pulse Oximetry 97 01/05/21 15:53 MDM - Syncope MDM Narrative: Medical decision making narrative: Patient has hypercapnic hypoxic respiratory failure. Suspect it is from heart failure his last echo was not that significantly abnormal he is fluid overloaded a bit we will discuss with nephrology keep him on BiPAP admit to ICU. Orders are written. Lab Data: Labs: Lab Results 01/05/21 01/05/21 01/05/21 Range/Units 12:17 12:29 12:29 WBC 5.5 (4.0-10.0) 10^3/ uL RBC 3.40 L (4.1-5.3) 10^6/u L Hgb 10.0 L (11.7-16.6) g/dL Hct 31.9 L (42.0-52.0) % MCV 93.8 (80-94) fL MCH 29.4 (28.0-34.0) pg MCHC 31.3 (30.0-36.0) g/dL RDW 16.6 H (12.1-15.1) % Plt Count 91 L (130-400) 10^3/c mm MPV 12.4 H (7.4-10.4) fL Neut % (Auto) 73.7 % Lymph % (Auto) 6.7 % [place] % (Auto) 7.8 % Eos % (Auto) 10.2 % Baso % (Auto) 0.7 % Neut # (Auto) 4.06 (1.8-7.7) 10^3/u L Lymph # (Auto) 0.4 L (0.8-4.8) 10^3/u L [place] # (Auto) 0.4 (0.2-0.9) 10^3/u L Eos # (Auto) 0.6 (0.0-0.8) 10^3/u L Baso # (Auto) 0.0 (0.0-0.1) 10^3/u L Nucleated RBC % (a uto) 0 % Nucleated RBCs # 0.0 /100WBC Specimen Type Arterial Sample Site Radial, right ABG pH 7.25 L (7.35-7.45) ABG pCO2 60.5 H* (35-45) mmHg ABG pO2 66.7 L (80.0-100.0) mmH g ABG HCO3 26.3 H (22-26) mmol/L ABG O2 Saturation 91.1 ABG Base Excess -1.7 (-2.0-2.0) mmol/ L Jesus Test Pos A-a O2 Gradient 15.2 H (5-10) mmHg Hematocrit 31.6 L (42-52) % Hgb O2 Saturation 88.6 L (95-100) % Carboxyhemoglobin 1.6 (0.4-20.1) %THgb Methemoglobin 1.1 (0.4-1.5) % Total Hemoglobin 10.3 L (14-18) g/dL Sodium 137.0 133 L (131-143) mmol/L Potassium 4.6 4.6 (3.5-5.0) mmol/L Glucose 451.0 H 417 H (70-115) mg/dL Ionized Calcium 1.2 (1.1-1.4) mmol/L O2 Delivery Device Nc O2 Liters/Min 4.0 % FiO2 36.0 % Criminal Justice Instructor ID Ed Chloride 96 L (98-107) mmol/L Carbon Dioxide 22 (22-29) mmol/L Anion Gap 19.6 H (5-19) BUN 62 H (6-20) mg/dL Creatinine 4.2 H (0.7-1.2) mg/dL GFR Calculation 15.1 L (90-130) mL/min Calculated Osmolal ity 311 H (285-295) mOsm/k g Calcium 7.9 L (8.5-10.5) mg/dL Magnesium 2.0 (1.7-2.3) mg/dL Total Bilirubin 0.3 (0.15-1.2) mg/dL AST 30 (0-40) U/L ALT 40 (0-41) U/L Alkaline Phosphata se 90 (40-130) IU/L Creatine Kinase 143 (39-308) U/L Troponin T Baselin e (0-15) ng/L Total Protein 6.3 L (6.6-8.7) g/dL Albumin 3.5 (3.5-5.2) g/dL Globulin 2.8 (1.3-4.6) g/dL Serum Ketones (Negative) 01/05/21 01/05/21 Range/Units 12:29 12:29 WBC (4.0-10.0) 10^3/ uL RBC (4.1-5.3) 10^6/u L Hgb (11.7-16.6) g/dL Hct (42.0-52.0) % MCV (80-94) fL MCH (28.0-34.0) pg MCHC (30.0-36.0) g/dL RDW (12.1-15.1) % Plt Count (130-400) 10^3/c mm MPV (7.4-10.4) fL Neut % (Auto) % Lymph % (Auto) % [place] % (Auto) % Eos % (Auto) % Baso % (Auto) % Neut # (Auto) (1.8-7.7) 10^3/u L Lymph # (Auto) (0.8-4.8) 10^3/u L [place] # (Auto) (0.2-0.9) 10^3/u L Eos # (Auto) (0.0-0.8) 10^3/u L Baso # (Auto) (0.0-0.1) 10^3/u L Nucleated RBC % (a uto) % Nucleated RBCs # /100WBC Specimen Type Sample Site ABG pH (7.35-7.45) ABG pCO2 (35-45) mmHg ABG pO2 (80.0-100.0) mmH g ABG HCO3 (22-26) mmol/L ABG O2 Saturation ABG Base Excess (-2.0-2.0) mmol/ L Jesus Test A-a O2 Gradient (5-10) mmHg Hematocrit (42-52) % Hgb O2 Saturation (95-100) % Carboxyhemoglobin (0.4-20.1) %THgb Methemoglobin (0.4-1.5) % Total Hemoglobin (14-18) g/dL Sodium (131-143) mmol/L Potassium (3.5-5.0) mmol/L Glucose (70-115) mg/dL Ionized Calcium (1.1-1.4) mmol/L O2 Delivery Device O2 Liters/Min % FiO2 % Criminal Justice Instructor ID Chloride (98-107) mmol/L Carbon Dioxide (22-29) mmol/L Anion Gap (5-19) BUN (6-20) mg/dL Creatinine (0.7-1.2) mg/dL GFR Calculation (90-130) mL/min Calculated Osmolal ity (285-295) mOsm/k g Calcium (8.5-10.5) mg/dL Magnesium (1.7-2.3) mg/dL Total Bilirubin (0.15-1.2) mg/dL AST (0-40) U/L ALT (0-41) U/L Alkaline Phosphata se (40-130) IU/L Creatine Kinase (39-308) U/L Troponin T Baselin e 333 H* (0-15) ng/L Total Protein (6.6-8.7) g/dL Albumin (3.5-5.2) g/dL Globulin (1.3-4.6) g/dL Serum Ketones Negative (Negative) Discharge Plan Discharge Admit Provider: Paul Freeman Clinical Impression: Respiratory failure with hypoxia and hypercapnia, End stage renal disease on dialysis, COPD (chronic obstructive pulmonary disease), Hypertension, Obstructive sleep apnea, Restrictive lung disease, Elevated troponin, Renal cell carcinoma Condition: Stable Coding Level of Care Code ED Cutlery Grinder for Patricia Reid
[2021-01-05] MEDS: ondansetron 2 mg/ML SDV 2 mL 4 MG IVP (13:08)
[2021-01-05 13:17] LABS: Troponin(5th) Baseline 333 ng/L (0-15)
[2021-01-05] MEDS: iodixanol 320 mg/mL 100mL Btl IV ×2 (13:21)
[2021-01-05 13:26] LABS: Aspartate Amino Transferase 30 U/L (0-40); Blood Urea Nitrogen 62 mg/dL (6-20); Carbon Dioxide 22 mmol/L (22-29); Creatine Phosphokinase 143 U/L (39-308); Globulin 2.8 g/dL (1.3-4.6); Glomerular Filtration Rate 15.1 mL/min (90-130); Glucose 417 mg/dL (65-115); Total Bilirubin 0.3 mg/dL (0.15-1.2); Total Protein 6.3 g/dL (6.6-8.7)
[2021-01-05 13:40] LABS: Anion Gap 19.6 (5-19); Chloride 96 mmol/L (98-107); Osmolality Calculated 311 mOsm/kg (285-295); Sodium 133 mmol/L (136-145)
[2021-01-05 13:42] LABS: Calcium 7.9 mg/dL (8.5-10.5)
--- NOTE | 2021-01-05 14:04 | ECG_ITS ---
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 Measurements Intervals [place] Rate: 55 P: 64 NC: 199 QRS: 120 QRSD: 115 T: 54 QT: 485 QTc: 467 Interpretive Statements SINUS BRADYCARDIA POSSIBLE RIGHT VENTRICULAR HYPERTROPHY PROLONGED QT INTERVAL Compared to ECG 01/05/2021 12:27:42 Prolonged QT interval now present Sinus rhythm no longer present Electronically Signed On 01-05-2021 16:32:33 CDT by Rosie Ivey M.D. [id number]
[2021-01-05 14:07] LABS: ABG PCO2 59.5 mmHg (35-45); ABG PH Result 7.28 (7.35-7.45); Arterial Blood Gas Hematocrit 30.1 % (42-52); Base Excess ABG 0.2 mmol/L (-2.0-2.0); Blood Gas Allen Test Pos; Blood Gas Sample Type Arterial; Carboxyhemoglobin 1.7 %THgb (0.4-20.1); HCO3 ABG 27.7 mmol/L (22-26); HGB O2 Sat 87.6 % (95-100); Ionized Calcium Level - ABG 1.2 mmol/L (1.1-1.4); Methemoglobin 1.1 % (0.4-1.5); Oxygen Saturation ABG 90.2; PO2 ABG 63.3 mmHg (80.0-100.0); Potassium Level - ABG 4.8 mmol/L (3.5-5.0); Total Hemoglobin 9.8 g/dL (14-18)
[2021-01-05 14:09] LABS: Alveolar-Arterial Oxygen Gradi 10.2 mmHg (5-10); Blood Gas Operator Identificat ED; Blood Gas Sample Site Radial, left; Oxygen Device BIPAP
[2021-01-05 15:25] LABS: Troponin 5 2HR 308.6 ng/L (0-15); Troponin 5 2HR Delta -24.4 ABS# (0-10)
--- NOTE | 2021-01-05 15:29 | PM.HP ---
Providers/Chief Complaint Admitting Physician: Paul Freeman MD Primary Care Provider: Sulma Wetzel MD Chief Complaint: SYNCOPE History of Present Illness Akil Velasco is a 50 year old male with past medical history of hypertension diabetes heart failure with preservation fraction, end-stage renal disease dialysis dependent MWF (Has tunneled dialysis catheter ) Covid pneumonia survivor, COPD, came in today with chief complaint of syncopal episodes during dialysis, he was 30 minutes into his regular dialysis session.He states he can remember everything that happened he could hear people but he could not really respond, the episode lasted close to 10 minutes as per the patient account.Dialysis session was cut short and he was sent to the ER for further management.When I saw the patient in the ER he was alert awake and oriented, he denied any chest pain, shortness of breath , any prodromal symptoms, headache, nausea vomiting, palpitation. Of note patient has recently received his second dose of Covid vaccine on Sunday and since then he has been feeling mild Covid-like symptoms. Upon arrival in the ER he was worked up for above-mentioned complaint: Imaging studies: CT angio chest PE protcl: No central pulmonary emboli, mild pulmonary edema.Marked cardiomegaly and a small pericardial effusion. EKG: Sinus bradycardia. ABG: pH: 7.28 , PCO2: 59, PO2: 36, FiO2: 30% Review of Systems Const: Denies: fever(s), chills, body aches, change in appetite or diaphoresis Card: Denies: palpitations or leg pain with exertion Resp: Denies: dyspnea, productive cough, wheezing or pain on inspiration GI: Denies: abdominal pain, nausea, vomiting, diarrhea or constipation : Denies: flank pain or difficulty urinating Musc: Denies: back pain, extremity pain or extremity swelling Neuro: Denies: headache(s), difficulty walking or confusion Medications/Allergies Home Medications Medication Instructions Recorded Confirmed Last Taken Type albuterol sulfate 2 inh INHALATION Q6H PRN #8.5 g 08/31/20 01/05/21 Unknown Rx Lantus U-100 Insulin 15 unit SUBCUT DAILY 10/04/20 01/05/21 01/05/21 History acetaminophen [Tylenol] 650 mg PO Q6H PRN 10/04/20 01/05/21 Unknown History aspirin 81 mg PO DAILY 0301/05/21 01/05/21 History carvedilol 25 mg PO BID 10/04/20 01/05/21 01/05/21 History clonidine HCl 0.3 mg PO Q8H 10/04/20 01/05/21 01/05/21 History isosorbide mononitrate 120 mg PO DAILY 10/04/20 01/05/21 01/05/21 History tamsulosin 0.8 mg PO QPM 10/04/20 01/05/21 01/04/21 History venlafaxine 150 mg PO QAM 10/04/20 01/05/21 01/05/21 History hydralazine 100 mg PO TID #90 tab 10/08/20 01/05/21 01/05/21 Rx olanzapine 2.5 mg PO BEDTIME #30 tab 10/08/20 01/05/21 01/04/21 Rx metolazone 5 mg PO DAILY #30 tab 10/13/20 01/05/21 01/05/21 Rx sodium chloride [Saline Mist] 1 spray NASAL PRN PRN #50 ml 10/13/20 01/05/21 Unknown Rx Tresiba FlexTouch U-100 40 unit SUBCUT DAILY 11/11/20 01/05/21 01/04/21 History alprazolam 0.5 mg PO DAILY PRN 11/11/20 01/05/21 Unknown History amlodipine 10 mg PO DAILY 11/11/20 01/05/21 01/05/21 History atorvastatin 80 mg PO DAILY 11/11/20 01/05/21 01/04/21 History bumetanide 2 mg PO BEDTIME 11/11/20 01/05/21 01/04/21 History citalopram 20 mg PO DAILY 11/11/20 01/05/21 01/05/21 History gabapentin 300 mg PO QID 11/11/20 01/05/21 01/05/21 History insulin lispro [Humalog U-100 See Rx Instructions .ROUTE .COMPLEX 11/11/20 01/05/21 Unknown History Insulin] pantoprazole 40 mg PO BID 11/11/20 01/05/21 01/05/21 History sevelamer carbonate 800 mg PO BID 11/11/20 01/05/21 01/05/21 History sodium bicarbonate 650 mg PO TID 11/11/20 01/05/21 01/05/21 History furosemide [Lasix] 80 mg PO BID 01/05/21 01/05/21 Unknown History trazodone 50 mg PO BEDTIME 01/05/21 01/05/21 01/04/21 History Allergies Allergy/AdvReac Type Severity Reaction Status Date / Time No Known Allergies Allergy Verified 01/05/21 12:06 PFSH Acute PFSH: Medical History Accelerated hypertension Acute on chronic diastolic (congestive) heart failure Acute respiratory failure with hypoxia Acute respiratory failure with hypoxia and hypercapnia [id number] kidney injury Anasarca Anemia ARDS (adult respiratory distress syndrome) Cancer Cardiac arrest Cataract (lens) fragments in eye following cataract surgery, bilateral CHF (congestive heart failure), NYHA class III Chronic kidney disease Chronic kidney disease, stage IV (severe) CKD stage 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 Congestive cardiac failure Diabetes Fracture of fifth metatarsal bone of left foot Fracture of fourth metatarsal bone of left foot Hypertension Laceration Metabolic alkalosis Neuropathy Pneumonia due to 2018-nCo PVD (peripheral vascular disease) Renal cell carcinoma History bilateral renal cell carcinoma 2007 then recurrence on the contralateral side 2011. No recurrence for long-term follow-up with some suspicion on CT scan April 2020. Type 2 diabetes mellitus with diabetic polyneuropathy Urinary retention Surgical History H/O partial nephrectomy bilateral Hx of lymph node excision Family History Father , AT AGE 65 Diabetes Cancer Metastatic prostate cancer to liver Mother , AT AGE 72 Diabetes Grandfather Diabetes Cancer Other Hyperlipidemia Social History Smoking and tobacco status: never smoked Second hand smoke exposure: Yes Smoking risk assessment/counseling performed?: Yes Alcohol intake: current Alcohol intake frequency: holidays/special occasions only Lives independently: Yes Household members: spouse Housing: House Marital status: service: No Current occupational status: retired Pets and animals: Yes History of recent travel: No Current gender identity: Male Vitals/I&O/Wt Last Vital Signs Temp 98.0 F 01/05/21 11:56 Pulse 56 L 01/05/21 14:18 Resp 20 H 01/05/21 14:18 BP 143/71 01/05/21 14:18 Pulse Ox 98 01/05/21 14:18 Weight last 48 hrs Weight 136.078 kg Physical Exam Const: COMMON NORMALS: patient oriented x3 HENMT: COMMON NORMALS: normocephalic and atraumatic Chest: CHEST: Yes Symmetrical chest wall rise Resp: COMMON NORMALS: clear to auscultation bilaterally EFFORT & INSPECTION: Yes symmetric chest movement AUSCULTATION: clear to auscultation bilaterally Cardio: COMMON NORMALS: regular rate, regular rhythm, S1 normal heart sound present, S2 normal heart sound present, No gallops present (Cardio), No murmurs present (Cardio), No rub (Cardio) and Peripheral pulses 2+ throughout RATE: regular rate RHYTHM: regular rhythm HEART SOUNDS: S1 normal heart sound present and S2 normal heart sound present PERIPHERAL PULSES: Peripheral pulses 2+ throughout GI: COMMON NORMALS: Normal to inspection, nondistended, normoactive bowel sounds present, Soft to palpation, non-tender, No hepatosplenomegaly present and no masses AUSCULTATION: Yes normoactive bowel sounds PALPATION: Yes Soft to palpation and Yes No hepatosplenomegaly present RECTAL EXAM: Yes deferred Extremity: NARRATIVE EXTREMITY EXAM: 1+ bilateral pitting lower extremity edema present Neuro: COMMON NORMALS: patient oriented x3 Data : 01/05/21 12:29 01/05/21 12:29 A&P Assessment and plan (1) Syncope: Syncope: Possibly due to transient cardiac arrhythmia during dialysis. CT chest angio has ruled out PE. Has no focal neurological deficit: Hence CT head without contrast will have no importance. Has recent 2D echo.Will avoid carotid Doppler: There is no carotid bruit: Telemetry monitoring Status: Acute (2) Chronic respiratory failure with hypoxia and hypercapnia: Currently patient is at his baseline oxygen requirement, Continue BiPAP Status: Acute (3) Heart failure: Heart failure with preserved ejection fraction: Currently compensated: Continue with 2 mg po Bumex daily. Patient does not make a lot of urine, given his end-stage renal disease Status: Acute (4) End stage renal disease on dialysis: Renal has been consulted. Due for dialysis today. We will continue with routine hemodialysis Status: Acute (5) Elevated troponin: Chronically elevated troponin: In the setting of end-stage renal disease, and chronic heart failure. He denies any chest pain shortness of breath. EKG has failed to show any significant ST-T wave changes. Status: Acute (6) Hypertension: Status: Acute (7) Diabetes: Status: Acute (8) COPD (chronic obstructive pulmonary disease): Status: Acute (9) Anemia: Status: Acute (10) Sinus bradycardia: Status: Acute (11) Morbid obesity with BMI of 40.0-44.9, adult: Status: Acute (12) Obesity hypoventilation syndrome: Status: Acute Additional A&P Information CODE STATUS: Full code DVT PPX:Heparin 5000 sc q8 h Daily Attestations Medical Necessity Statement*: Patient needs to be in hospital for management of syncope, chronic respiratory failure, need for hemodialysis. Anticipated length of stay greater than 2 midnights. Coding Level of Care Code Acute Telegraph Lineman for [facility] Fwd Diagnoses Syncope R55 Chronic respiratory failure with hypoxia and hypercapnia J96.11; J96.12 Heart failure I50.9 End stage renal disease on dialysis N18.6; Z99.2 Elevated troponin R77.8 Hypertension I10 Diabetes E11.9 COPD (chronic obstructive pulmonary disease) J44.9 Anemia D64.9 Sinus bradycardia R00.1 Morbid obesity with BMI of 40.0-44.9, adult E66.01; Z68.41 Obesity hypoventilation syndrome E66.2
--- NOTE | 2021-01-05 15:51 | PM.CONSULT ---
Providers/Reason For Consult Consulting Physician/Specialty*: Nephrology Reason for Consult*: ESRD mgmt Attending Physician: Paul Freeman MD Primary Care Provider: Sulma Wetzel MD History of Present Illness History of Present Illness Thank you for consultation, today I had the pleasure of reviewing Mr Velasco for evaluation management of end-stage renal disease. He had a syncopal episode while on dialysis this morning and was subsequently brought to our facility for further evaluation. In the emergency room he was noted to have some respiratory distress and was started on BiPAP, although now he is transitioned of it. Chest x-ray demonstrated relatively unremarkable chest, CTA of the chest demonstrated soft tissue anasarca mild pulmonary edema with marked cardiomegaly and a small pericardial effusion. No evidence of pulmonary embolism. 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 Dialyzes via dialysis catheter. No other uremic symptoms at this time. Hemodynamics following hospitalization have been stable, last blood pressure measured at 108/55. Review of Systems Narrative: Constitutional: Weakness, fatigue Respiratory: SOB on exertion and at rest CardioVasc: No chest pain, palpitations Gastrointestinal: No nausea, no vomiting Neurological: No seizures, no AMS Derm: No new rashes, lesions or wounds Immunological: No seasonal and no food allergies Meds/Allergies Home Medications and Allergies Home Medications Medication Instructions Recorded Confirmed Last Taken Type albuterol sulfate 2 inh INHALATION Q6H PRN #8.5 g 08/31/20 01/05/21 Unknown Rx Lantus U-100 Insulin 15 unit SUBCUT DAILY 10/04/20 01/05/21 01/05/21 History acetaminophen [Tylenol] 650 mg PO Q6H PRN 10/04/20 01/05/21 Unknown History aspirin 81 mg PO DAILY 10/04/20 01/05/21 01/05/21 History carvedilol 25 mg PO BID 10/04/20 01/05/21 01/05/21 History clonidine HCl 0.3 mg PO Q8H 10/04/20 01/05/21 01/05/21 History isosorbide mononitrate 120 mg PO DAILY 10/04/20 01/05/21 01/05/21 History tamsulosin 0.8 mg PO QPM 10/04/20 01/05/21 01/04/21 History venlafaxine 150 mg PO QAM 10/04/20 01/05/21 01/05/21 History hydralazine 100 mg PO TID #90 tab 10/08/20 01/05/21 01/05/21 Rx olanzapine 2.5 mg PO BEDTIME #30 tab 10/08/20 01/05/21 01/04/21 Rx metolazone 5 mg PO DAILY #30 tab 10/13/20 01/05/21 01/05/21 Rx sodium chloride [Saline Mist] 1 spray NASAL PRN PRN #50 ml 10/13/20 01/05/21 Unknown Rx Tresiba FlexTouch U-100 40 unit SUBCUT DAILY 11/11/20 01/05/21 01/04/21 History alprazolam 0.5 mg PO DAILY PRN 11/11/20 01/05/21 Unknown History amlodipine 10 mg PO DAILY 11/11/20 01/05/21 01/05/21 History atorvastatin 80 mg PO DAILY 11/11/20 01/05/21 01/04/21 History bumetanide 2 mg PO BEDTIME 11/11/20 01/05/21 01/04/21 History citalopram 20 mg PO DAILY 11/11/20 01/05/21 01/05/21 History gabapentin 300 mg PO QID 11/11/20 01/05/21 01/05/21 History insulin lispro [Humalog U-100 See Rx Instructions .ROUTE .COMPLEX 11/11/20 01/05/21 Unknown History Insulin] pantoprazole 40 mg PO BID 11/11/20 01/05/21 01/05/21 History sevelamer carbonate 800 mg PO BID 11/11/20 01/05/21 01/05/21 History sodium bicarbonate 650 mg PO TID 11/11/20 01/05/21 01/05/21 History furosemide [Lasix] 80 mg PO BID 01/05/21 01/05/21 Unknown History trazodone 50 mg PO BEDTIME 01/05/21 01/05/21 01/04/21 History Allergies Allergy/AdvReac Type Severity Reaction Status Date / Time No Known Allergies Allergy Verified 01/05/21 12:06 PFSH Acute PFSH: Medical History (Updated 11/23/20 @ 13:52 by Annie Coy) Accelerated hypertension Acute on chronic diastolic (congestive) heart failure Acute respiratory failure with hypoxia Acute respiratory failure with hypoxia and hypercapnia [id number] kidney injury Anasarca Anemia ARDS (adult respiratory distress syndrome) Cancer Cardiac arrest Cataract (lens) fragments in eye following cataract surgery, bilateral CHF (congestive heart failure), NYHA class III Chronic kidney disease Chronic kidney disease, stage IV (severe) CKD stage 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 Congestive cardiac failure Diabetes Fracture of fifth metatarsal bone of left foot Fracture of fourth metatarsal bone of left foot Hypertension Laceration Metabolic alkalosis Neuropathy Pneumonia due to 2018-nCoV PVD (peripheral vascular disease) Renal cell carcinoma History bilateral renal cell carcinoma 2007 then recurrence on the contralateral side 2011. No recurrence for long-term follow-up with some suspicion on CT scan April 2020. Type 2 diabetes mellitus with diabetic polyneuropathy Urinary retention Surgical History (System 11/23/20 @ 13:52 by Annie Coy) H/O partial nephrectomy bilateral Hx of lymph node excision Family History Father , AT AGE 65 Diabetes Cancer Metastatic prostate cancer to liver Mother , AT AGE 72 Diabetes Grandfather Diabetes Cancer Other Hyperlipidemia Social History (System 11/23/20 @ 13:52 by Annie Coy) Smoking and tobacco status: never smoked Second hand smoke exposure: Yes Smoking risk assessment/counseling performed?: Yes Alcohol intake: current Alcohol intake frequency: holidays/special occasions only Lives independently: Yes Household members: spouse Housing: House Marital status: service: No Current occupational status: retired Pets and animals: Yes History of recent travel: No Current gender identity: Male Vitals/I&O/Wt Last Vital Signs Temp 98.0 F 01/05/21 11:56 Pulse 56 L 01/05/21 14:18 Resp 20 H 01/05/21 14:18 BP 143/71 01/05/21 14:18 Pulse Ox 98 01/05/21 14:18 Weight last 48 hrs Weight 136.078 kg Physical Exam Narrative: EXAM NARRATIVE: Constitutional: Awake, comfortable HEENT: Wet mucosa, no jvp, non icteric Lungs: Bilaterally decreased in all lung zones CVS: S1 S2, no murmurs Abdo: Soft, BS ok Ext 4: Minimal edema, peripheral perfusion with no cyanosis Neurological: Grossly non-focal A&P Additional A&P Information 1. ESRD We will plan on doing dialysis today, 2K bath, ultrafiltration 2-3 L as tolerated. We will evaluate him tomorrow with a plan to do dialysis again on Sunday. Dose medication for GFR less than 15 on dialysis 2. Syncope Evaluation and management per Dr. Freeman including telemetry etc. 3. Hemodynamics Blood pressure currently looks stable, continue to monitor hemodynamics during dialysis. 4. Chronic ESRD issues including anemia, secondary hyperparathyroidism etc. Management per outpatient dialysis unit as part of standard care. John Peters MD Nephrology [phone] Patient seen and examined via telemedicine, with the assistance of the bedside RN > 25 min spent in evaluation and mgmt of patient Consult Attestations Medical Necessity Statement: Eval for ESRD mgmt Coding Level of Care Code Acute Associate Professor Of Forestry for Patricia Reid
[2021-01-05] MEDS: cloNIDine 0.1 mg Tablet 0.3 MG PO (16:55)
[2021-01-05] MEDS: heparin 5,000 unit/mL INJ 1 mL 5000 UNIT SUBCUT (16:56)
--- NOTE | 2021-01-05 18:04 | ECG_ITS ---
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 Measurements Intervals [place] Rate: 57 P: 45 OR: 201 QRS: 93 QRSD: 113 T: 25 QT: 461 QTc: 452 Interpretive Statements SINUS BRADYCARDIA WITH OCCASIONAL SUPRAVENTRICULAR PREMATURE COMPLEXES BORDERLINE RIGHT AXIS DEVIATION [QRS AXIS > 90] INCOMPLETE RIGHT BUNDLE BRANCH BLOCK [90+ ms QRS DURATION, TERMINAL R IN V1/V2, 40+ ms S IN I/aVL/V4/V5/V6] MINIMAL ST DEPRESSION [0.025+ mV ST DEPRESSION] Compared to ECG 01/05/2021 14:16:28 Incomplete right bundle-branch block now present ST (T wave) deviation now present Prolonged QT interval no longer present Electronically Signed On 01-05-2021 22:07:24 CDT by Rosie Ivey M.D. [email or web address]
[2021-01-05 19:45] LABS: Glucose Point of Care 317 mg/dL (70-110)
[2021-01-05] MEDS: bumetanide 1 mg Tablet 2 MG PO (20:21)
[2021-01-05] MEDS: trazodone 50 mg Tablet PO (20:21)
[2021-01-05] MEDS: sevelamer 800 mg Tablet PO (20:21)
[2021-01-05] MEDS: OLANZapine 5 mg TABLET 2.5 MG PO (20:22)
[2021-01-05] MEDS: hyDRALAzine 50 mg Tablet 100 MG PO (20:22)
[2021-01-05] MEDS: sodium bicarbonate 650 mg Tablet PO (20:22)
[2021-01-05] MEDS: gabapentin 300 mg Capsule PO (20:22)
[2021-01-05] MEDS: pantoprazole DR 40 mg Tablet PO (20:23)
[2021-01-05] MEDS: tamsulosin 0.4 mg Capsule 0.8 MG PO (20:23)
[2021-01-05] MEDS: insulin glargine 100 units/1 mL 10 UNIT SUBCUT (20:23)
[2021-01-05 20:31] LABS: Troponin 5 6HR 352.7 ng/L (0-15); Troponin 5 6HR Delta 19.7 ng/L (0-12)
--- NOTE | 2021-01-05 21:43 | PC.NURSE ---
[id number] meds given late on PM shift, due to patient actively receiving dialysis treatment. Meds were all give after dialysis completed.
[2021-01-06] VITALS (22 sets, daily range): BP systolic 123–163; BP diastolic 72–94; PULSE 52–70; RESP 9–21; TEMP 36.4–36.9; O2SAT 88–98
[2021-01-06] MEDS: heparin 5,000 unit/mL INJ 1 mL 5000 UNIT SUBCUT ×3 (00:21→17:43)
[2021-01-06] MEDS: cloNIDine 0.1 mg Tablet 0.3 MG PO (00:22)
[2021-01-06] MEDS: gabapentin 300 mg Capsule PO ×5 (00:23→22:20)
[2021-01-06 05:18] LABS: Basophils # 0.1 10^3/uL (0.0-0.1); Basophils % 1.2 %; Eosinophils # 0.8 10^3/uL (0.0-0.8); Eosinophils % 14.7 %; Hematocrit 32.9 % (42.0-52.0); Lymphocytes # 0.6 10^3/uL (0.8-4.8); Mean Corpuscular HGB Conc 30.4 g/dL (30.0-36.0); Mean Corpuscular Hemoglobin 29.5 pg (28.0-34.0); Mean Corpuscular Volume 97.1 fL (80-94); Monocytes # 0.8 10^3/uL (0.2-0.9); Monocytes % 14.5 %; Neutrophils # 2.94 10^3/uL (1.8-7.7); Nucleated Red Blood Cells % 0 %; Platelet Count 92 10^3/cmm (130-400); Red Blood Count 3.39 10^6/uL (4.1-5.3); Red Cell Distribution Width 16.5 % (12.1-15.1); White Blood Count 5.2 10^3/uL (4.0-10.0)
[2021-01-06 05:37] LABS: Alanine Aminotransferase 42 U/L (0-41); Albumin Level 3.7 g/dL (3.5-5.2); Alkaline Phosphatase 94 IU/L (40-130); Anion Gap 15.4 (5-19); Aspartate Amino Transferase 30 U/L (0-40); Blood Urea Nitrogen 52 mg/dL (6-20); Calcium 8.2 mg/dL (8.5-10.5); Carbon Dioxide 27 mmol/L (22-29); Chloride 98 mmol/L (98-107); Globulin 2.7 g/dL (1.3-4.6); Glomerular Filtration Rate 17.5 mL/min (90-130); Glucose 293 mg/dL (65-115); Osmolality Calculated 307 mOsm/kg (285-295); Potassium 4.4 mmol/L (3.5-5.1); Sodium 136 mmol/L (136-145); Total Bilirubin 0.3 mg/dL (0.15-1.2); Total Protein 6.4 g/dL (6.6-8.7)
[2021-01-06] MEDS: venlafaxine ER (24HR) 150 mg Capsule PO (06:11)
--- NOTE | 2021-01-06 07:15 | P.PN_ITS ---
Subjective Subjective: Interval history: feels better. still required bipap overnight. no n/v/f/c/acosta/d Medications: Reviewed: Yes Medication Review Details: Current Medications Acetaminophen (Acetaminophen 325 Mg Tablet) 650 mg PO Q6H PRN PRN Reason: Mild/Mod Pain Or Temp >/= 101 Albuterol Sulfate (Albuterol 8 Gm Mdi) 2 puff INHALATION Q6H PRN PRN Reason: shortness of breath or wheezing Alprazolam (Alprazolam 0.5 Mg Tablet) 0.5 mg PO DAILY PRN PRN Reason: Anxiety Amlodipine Besylate (Amlodipine 10 Mg Tablet) 10 mg PO DAILY [facility] Aspirin (Aspirin 81 Mg Ec Tablet) 81 mg PO DAILY [place] Atorvastatin Calcium (Atorvastatin 40 Mg Tablet) 80 mg PO DAILY [place] Bisacodyl (Bisacodyl 5 Mg Tablet) 10 mg PO DAILY PRN; Protocol PRN Reason: Constipation (see protocol) Bumetanide (Bumetanide 1 Mg Tablet) 2 mg PO BEDTIME [facility] Last Admin: 01/05/21 20:21 Dose: 2 mg Documented by: Citalopram Hydrobromide (Citalopram 20 Mg Tablet) 20 mg PO DAILY [facility] Clonidine HCl (Clonidine 0.1 Mg Tablet) 0.3 mg PO Q8H [facility] Last Admin: 01/06/21 00:22 Dose: 0.3 mg Documented by: Dextrose (Dextrose 50% Syringe 50 Ml) 25 ml IVP ONCE PRN; Protocol PRN Reason: hypoglycemia protocol Dextrose (Dextrose 50% Syringe 50 Ml) 50 ml IVP PRN PRN; Protocol PRN Reason: hypoglycemia protocol Gabapentin (Gabapentin 300 Mg Capsule) 300 mg PO QID [facility] Last Admin: 01/06/21 00:23 Dose: 300 mg Documented by: Glucagon (Glucagon 1 Mg/Ml Inj 1 Ml) 1 mg IM ONCE PRN; Protocol PRN Reason: Adult Acute Hypoglycemia Prot. Heparin Sodium (Beef Lung) (Heparin 5,000 Unit/Ml Inj 1 Ml) 5,000 unit SUBCUT Q8H [facility] Last Admin: 01/06/21 00:21 Dose: 5,000 unit Documented by: Hydralazine HCl (Hydralazine 50 Mg Tablet) 100 mg PO TID [facility] Last Admin: 01/05/21 20:22 Dose: 100 mg Documented by: Dextrose (D5w) 500 mls @ 100 mls/hr IV ONCE PRN; Protocol PRN Reason: Adult Acute Hypoglycemia Prot Insulin Aspart (Insulin Aspart 100 Unit/1 Ml) 0 unit SUBCUT BEDTIME [facility]; Protocol Last Admin: 01/05/21 20:23 Dose: 6 unit Documented by: Insulin Aspart (Insulin Aspart 100 Unit/1 Ml) 0 unit SUBCUT TIDWM [facility]; Protocol Insulin Glargine (Insulin Glargine 100 Units/1 Ml) 10 unit SUBCUT BEDTIME [facility] Last Admin: 01/05/21 20:23 Dose: 10 unit Documented by: Isosorbide Mononitrate (Isosorbide Mononitrate Er 60 Mg Tablet) 120 mg PO DAILY [place] Metolazone (Metolazone 5 Mg Tablet) 5 mg PO DAILY [place] Naloxone HCl (Naloxone 0.4 Mg/Ml Sdv) 0.1 mg IVP Q2M PRN PRN Reason: OPIATERV Olanzapine (Olanzapine 5 Mg Tablet) 2.5 mg PO BEDTIME [facility] Last Admin: 01/05/21 20:22 Dose: 2.5 mg Documented by: Ondansetron HCl (Ondansetron 2 Mg/Ml Sdv 2 Ml) 4 mg IVP Q8H PRN PRN Reason: vomiting, or N/V if npo Oxycodone/Acetaminophen (Oxycodone-Apap 5-325 Mg Tablet) 1 tab PO Q4H PRN PRN Reason: SEVERE PAIN Pantoprazole Sodium (Pantoprazole Dr 40 Mg Tablet) 40 mg PO BID [facility] Last Admin: 01/05/21 20:23 Dose: 40 mg Documented by: Sevelamer Carbonate (Sevelamer 800 Mg Tablet) 800 mg PO BID [facility] Last Admin: 01/05/21 20:21 Dose: 800 mg Documented by: Sodium Bicarbonate (Sodium Bicarbonate 650 Mg Tablet) 650 mg PO TID [facility] Last Admin: 01/05/21 20:22 Dose: 650 mg Documented by: Sodium Chloride (Saline Nasal [place] 44ml Btl) 1 spray NASAL PRN PRN PRN Reason: Dryness Tamsulosin HCl (Tamsulosin 0.4 Mg Capsule) 0.8 mg PO QPM [facility] Last Admin: 01/05/21 20:23 Dose: 0.8 mg Documented by: Trazodone HCl (Trazodone 50 Mg Tablet) 50 mg PO BEDTIME [facility] Last Admin: 01/05/21 20:21 Dose: 50 mg Documented by: Venlafaxine HCl (Venlafaxine Er (24hr) 150 Mg Capsule) 150 mg PO QAM [facility] Last Admin: 01/06/21 06:11 Dose: 150 mg Documented by: Vitals/I&O/Wt Last Vital Signs Temp 97.9 F 01/06/21 04:00 Pulse 55 L 01/06/21 06:00 Resp 17 01/06/21 04:00 BP 153/79 01/06/21 05:00 Pulse Ox 96 01/06/21 05:26 01/05/21 01/06/21 01/06/21 22:59 06:59 14:59 Intake Total 290 / 290 500 / 790 Balance 290 / 290 500 / 790 Weight last 48 hrs Weight 136.078 kg Physical Exam Narrative: EXAM NARRATIVE: vs noted obese, sob on nc 02 5l heent- nc/at, eomi, anicteric neck supple lungs crackles and ronchi heart reg abd soft, nt, nd, +BS ext 1+ b/l edema access IJ catheter neuro- a,a, o x 3 seen and examine dw/ RN- telehealth visit Data : 01/06/21 04:55 01/06/21 04:55 A&P Additional A&P Information 50 yr old man obesity, HTN, DM, eSRD MWF- HD, h/o COPD, COVID in past. 1. syncope per medicine -also + trop -per medicine and cardiology 2. ESRD- htn, sob- dec bp meds- SUF today for 2 hrs- remove 2l- full hd in am 3 anemia- hgb okay for ESRD- may need epo 4. mild thrombocytopenia 5. hypercapneic resp acidosis- SYED- bipap at night 6. DM care- glucose remains elevated 7. htn - would wean down meds and lower EDW on HD. he is on a very difficult BP regimen. also if we dec meds, may be able to take off more fluids on HD w/o syncope seen and examined w/ RN- telehealth visit Attestations Medical Necessity Statement*: sob, esrd, per emdicine Time Spent in Patient Care: 16 - 35 minutes Coding Level of Care Code Acute [employer] Inserter for Francisco Javierg Franklin
[2021-01-06] MEDS: cloNIDine 0.1 mg Tablet 0.2 MG PO ×2 (08:01→17:42)
[2021-01-06 08:32] LABS: Hepatitis B Surface Antigen Non-Reactive (Nonreactive); Hepatitis C Virus Antibody Non-Reactive (Nonreactive)
--- NOTE | 2021-01-06 08:32 | PC.CHAP ---
Pastoral Care Encounter/Spiritual Assessment Type of Contact [] Declined insurance attorney visit [] Patient/Family/Request visit [] Outpatient visit [] Follow-up visit [] Physician referral [] Code/Alert [x] Routine visit [] Staff referral [] Actively dying [] Patient sleeping [] Family support [] [] Out of room [] Palliative care [] [x] Receiving care in room [] Pre-surgical visit [] Trauma [] Long length of stay [x] ICU visit [] Other: Relational/Emotional Strength [] Patient feels connected with others/family/visitors/staff [] Distress [] Loneliness/isolation [] Abandonment Spirituality of Patient [] Person of Lizabeth [] Attends Taoist of their Lizabeth [] Believes in Prayer [] Reads Bible or Mandaeism materials [] There are Spiritual issues to be addressed Animal Anatomist Interventions [x] Prayer [] Active listening [] Non-anxious presence [] Spiritual/emotional support [] Crisis/trauma care [] Spiritual counseling [] Bereavement support [] Provided bereavement packet [] Provided Bible/devotional materials [] Provided toy/stuffed animal, coloring book to patient or family member [] Provided Communion [] Anointing/[place] [] Salvation [x] Completed spiritual assessment [] Other: Impact on Illness or Injury [] Angry [] Fearful [] Anxious [] Often cries [] Exhaustion [] Unable to work [] Unable to attend mandaeism [] Unable to walk/stand [] Unable to read [] Unable to drive [] Unable to eat/drink [] Unable to sleep [] Unable to be with family [] Patient intubated [] Other: Summary Time spent with patient
[2021-01-06 08:35] LABS: Hepatitis B Surface AB < 3.5 (11.5-1000)
[2021-01-06 08:59] LABS: Glucose Point of Care 257 mg/dL (70-110)
[2021-01-06] MEDS: sevelamer 800 mg Tablet PO ×2 (10:37→17:42)
[2021-01-06] MEDS: metOLazone 5 MG Tablet PO (10:37)
[2021-01-06] MEDS: aspirin 81 mg EC Tablet PO (10:37)
[2021-01-06] MEDS: atorvastatin 40 mg Tablet 80 MG PO (10:37)
[2021-01-06] MEDS: amlodipine 10 mg Tablet PO (10:38)
[2021-01-06] MEDS: isosorbide mononitrate ER 60 mg Tablet 120 MG PO (10:38)
[2021-01-06] MEDS: hyDRALAzine 50 mg Tablet PO ×3 (10:38→22:20)
[2021-01-06] MEDS: citalopram 20 mg Tablet PO (10:38)
[2021-01-06] MEDS: pantoprazole DR 40 mg Tablet PO ×2 (10:39→17:43)
[2021-01-06 11:01] LABS: Add Urine Microscopic? YES; Bacteria Urine 1+ /hpf; Bilirubin Urine Neg (Negative); Blood Urine Neg (Negative); Glucose Urine UA 4+ (Normal); Hyaline Casts Urine 0-4 /lpf; Ketones Urine Negative (Negative); Leukocyte Esterase Urine Negative (Negative); Mucus Urine 1+ /hpf; Nitrate Urine Negative (Negative); Protein Urine 3+ (Negative); RBC Urine 0-4 /hpf (0-2); Specific Gravity, Urine 1.015 (1.005-1.030); Squamous Epithelial Cell Urine 0-4 /hpf (0-5); Urine Appearance Cloudy (CLEAR); Urine Color Yellow (Yellow); Urobilinogen Urine Norm (Negative); WBC Urine 0-4 /hpf (0-5); pH Urine 5 (5-7)
--- NOTE | 2021-01-06 11:10 | P.PN_ITS ---
Subjective Subjective: Interval history: Overall he is doing better, used bipap overnight.H/D Done yesterday for 2 Hours.Tolerated well with no syncopal episode.No significant arrhythmia noted on Tele. Medications: Reviewed: Yes Medication Review Details: Current Medications Acetaminophen (Acetaminophen 325 Mg Tablet) 650 mg PO Q6H PRN PRN Reason: Mild/Mod Pain Or Temp >/= 101 Albuterol Sulfate (Albuterol 8 Gm Mdi) 2 puff INHALATION Q6H PRN PRN Reason: shortness of breath or wheezing Alprazolam (Alprazolam 0.5 Mg Tablet) 0.5 mg PO DAILY PRN PRN Reason: Anxiety Amlodipine Besylate (Amlodipine 10 Mg Tablet) 10 mg PO DAILY [facility] Aspirin (Aspirin 81 Mg Ec Tablet) 81 mg PO DAILY [place] Atorvastatin Calcium (Atorvastatin 40 Mg Tablet) 80 mg PO DAILY [place] Bisacodyl (Bisacodyl 5 Mg Tablet) 10 mg PO DAILY PRN; Protocol PRN Reason: Constipation (see protocol) Bumetanide (Bumetanide 1 Mg Tablet) 2 mg PO BEDTIME [facility] Last Admin: 01/05/21 20:21 Dose: 2 mg Documented by: Citalopram Hydrobromide (Citalopram 20 Mg Tablet) 20 mg PO DAILY [facility] Clonidine HCl (Clonidine 0.1 Mg Tablet) 0.3 mg PO Q8H [facility] Last Admin: 01/06/21 00:22 Dose: 0.3 mg Documented by: Dextrose (Dextrose 50% Syringe 50 Ml) 25 ml IVP ONCE PRN; Protocol PRN Reason: hypoglycemia protocol Dextrose (Dextrose 50% Syringe 50 Ml) 50 ml IVP PRN PRN; Protocol PRN Reason: hypoglycemia protocol Gabapentin (Gabapentin 300 Mg Capsule) 300 mg PO QID [facility] Last Admin: 01/06/21 00:23 Dose: 300 mg Documented by: Glucagon (Glucagon 1 Mg/Ml Inj 1 Ml) 1 mg IM ONCE PRN; Protocol PRN Reason: Adult Acute Hypoglycemia Prot. Heparin Sodium (Beef Lung) (Heparin 5,000 Unit/Ml Inj 1 Ml) 5,000 unit SUBCUT Q8H [facility] Last Admin: 01/06/21 00:21 Dose: 5,000 unit Documented by: Hydralazine HCl (Hydralazine 50 Mg Tablet) 100 mg PO TID [facility] Last Admin: 01/05/21 20:22 Dose: 100 mg Documented by: Dextrose (D5w) 500 mls @ 100 mls/hr IV ONCE PRN; Protocol PRN Reason: Adult Acute Hypoglycemia Prot Insulin Aspart (Insulin Aspart 100 Unit/1 Ml) 0 unit SUBCUT BEDTIME [facility]; Protocol Last Admin: 01/05/21 20:23 Dose: 6 unit Documented by: Insulin Aspart (Insulin Aspart 100 Unit/1 Ml) 0 unit SUBCUT TIDWM [facility]; Protocol Insulin Glargine (Insulin Glargine 100 Units/1 Ml) 10 unit SUBCUT BEDTIME [facility] Last Admin: 01/05/21 20:23 Dose: 10 unit Documented by: Isosorbide Mononitrate (Isosorbide Mononitrate Er 60 Mg Tablet) 120 mg PO DAILY [place] Metolazone (Metolazone 5 Mg Tablet) 5 mg PO DAILY [place] Naloxone HCl (Naloxone 0.4 Mg/Ml Sdv) 0.1 mg IVP Q2M PRN PRN Reason: OPIATERV Olanzapine (Olanzapine 5 Mg Tablet) 2.5 mg PO BEDTIME [facility] Last Admin: 01/05/21 20: Dose: 2.5 mg Documented by: Ondansetron HCl (Ondansetron 2 Mg/Ml Sdv 2 Ml) 4 mg IVP Q8H PRN PRN Reason: vomiting, or N/V if npo Oxycodone/Acetaminophen (Oxycodone-Apap 5-325 Mg Tablet) 1 tab PO Q4H PRN PRN Reason: SEVERE PAIN Pantoprazole Sodium (Pantoprazole Dr 40 Mg Tablet) 40 mg PO BID [facility] Last Admin: 01/05/21 20:23 Dose: 40 mg Documented by: Sevelamer Carbonate (Sevelamer 800 Mg Tablet) 800 mg PO BID [facility] Last Admin: 01/05/21 20:21 Dose: 800 mg Documented by: Sodium Bicarbonate (Sodium Bicarbonate 650 Mg Tablet) 650 mg PO TID [facility] Last Admin: 01/05/21 20:22 Dose: 650 mg Documented by: Sodium Chloride (Saline Nasal [place] 44ml Btl) 1 spray NASAL PRN PRN PRN Reason: Dryness Tamsulosin HCl (Tamsulosin 0.4 Mg Capsule) 0.8 mg PO QPM [facility] Last Admin: 01/05/21 20:23 Dose: 0.8 mg Documented by: Trazodone HCl (Trazodone 50 Mg Tablet) 50 mg PO BEDTIME [facility] Last Admin: 01/05/21 20:21 Dose: 50 mg Documented by: Venlafaxine HCl (Venlafaxine Er (24hr) 150 Mg Capsule) 150 mg PO QAM [facility] Last Admin: 01/06/21 06:11 Dose: 150 mg Documented by: Vitals/I&O/Wt Last Vital Signs Temp 97.9 F 01/06/21 04:00 Pulse 59 L 01/06/21 07:28 Resp 16 01/06/21 07:28 BP 145/87 01/06/21 08:01 Pulse Ox 96 01/06/21 07:28 01/05/21 01/06/21 01/06/21 22:59 06:59 14:59 Intake Total 290 / 290 500 / 790 Balance 290 / 290 500 / 790 Weight last 48 hrs Weight 136.078 kg Physical Exam Const: COMMON NORMALS: patient oriented x3 HENMT: COMMON NORMALS: normocephalic and atraumatic HEAD & SCALP: normocephalic and atraumatic Chest: CHEST: Yes Symmetrical chest wall rise Resp: EFFORT & INSPECTION: Yes symmetric chest movement OTHER: B/L Basal Crackles Present. Cardio: COMMON NORMALS: regular rate, regular rhythm, S1 normal heart sound present, S2 normal heart sound present, No gallops present (Cardio), No murmurs present (Cardio), No rub (Cardio) and Peripheral pulses 2+ throughout RATE: regular rate RHYTHM: regular rhythm HEART SOUNDS: S1 normal heart sound present and S2 normal heart sound present PERIPHERAL PULSES: Peripheral pulses 2+ throughout GI: COMMON NORMALS: Normal to inspection, nondistended, normoactive bowel sounds present, Soft to palpation, non-tender, No hepatosplenomegaly present and no masses AUSCULTATION: Yes normoactive bowel sounds PALPATION: Yes Soft to palpation and Yes No hepatosplenomegaly present RECTAL EXAM: Yes deferred Extremity: NARRATIVE EXTREMITY EXAM: 1+ bilateral pitting lower extremity edema present Neuro: COMMON NORMALS: patient oriented x3 Data : 01/06/21 04:55 01/06/21 04:55 A&P Assessment and plan (1) Syncope: Syncope: Possibly due to transient cardiac arrhythmia during dialysis. CT chest angio has ruled out PE. Has no focal neurological deficit: Hence CT head without contrast will have no importance. Has recent 2D echo.Will avoid carotid Doppler: There is no carotid bruit: Marked Changes to B/P medications have been made,to avoid hypotension during dialysis as possible Syncope.Clonidine dose has been reduced to 0.2 mg po q8 h daily from 0.3 mg po q8 h daily as well as Hydralazine dose has also been reduced to 50 mg po TID from 100 mg TID. Telemetry monitoring Status: Acute (2) Chronic respiratory failure with hypoxia and hypercapnia: Currently patient is at his baseline oxygen requirement, Continue BiPAP Status: Acute (3) Heart failure: Heart failure with preserved ejection fraction: Currently compensated: Continue with 2 mg po Bumex daily. Patient does not make a lot of urine, given his end-stage renal disease Status: Acute (4) End stage renal disease on dialysis: Renal has been consulted. Due for dialysis today. We will continue with routine hemodialysis Status: Acute (5) Elevated troponin: Chronically elevated troponin: In the setting of end-stage renal disease, and chronic heart failure.Without significant Delta. He denies any chest pain shortness of breath. EKG has failed to show any significant ST-T wave changes. Status: Acute (6) Hypertension: Status: Acute (7) Diabetes: Status: Acute (8) COPD (chronic obstructive pulmonary disease): Status: Acute (9) Anemia: Status: Acute (10) Sinus bradycardia: Status: Acute (11) Morbid obesity with BMI of 40.0-44.9, adult: Status: Acute (12) Obesity hypoventilation syndrome: Status: Acute Additional A&P Information CODE STATUS: Full code DVT PPX:Heparin 5000 sc q8 h Daily Attestations Medical Necessity Statement*: Patient needs to be in hospital for the need for ongoing dialysis and the need for optimization of respiratory status. Coding Level of Care Code Acute [employer] for [facility] Fwd Diagnoses Syncope R55 Chronic respiratory failure with hypoxia and hypercapnia J96.11; J96.12 Heart failure I50.9 End stage renal disease on dialysis N18.6; Z99.2 Elevated troponin R77.8 Hypertension I10 Diabetes E11.9 COPD (chronic obstructive pulmonary disease) J44.9 Anemia D64.9 Sinus bradycardia R00.1 Morbid obesity with BMI of 40.0-44.9, adult E66.01; Z68.41 Obesity hypoventilation syndrome E66.2
[2021-01-06 12:29] LABS: Glucose Point of Care 201 mg/dL (70-110)
[2021-01-06 17:22] LABS: Glucose Point of Care 155 mg/dL (70-110)
[2021-01-06] MEDS: tamsulosin 0.4 mg Capsule 0.8 MG PO (17:42)
[2021-01-06 20:48] LABS: Glucose Point of Care 178 mg/dL (70-110)
[2021-01-06] MEDS: OLANZapine 5 mg TABLET 2.5 MG PO (22:19)
[2021-01-06] MEDS: trazodone 50 mg Tablet PO (22:19)
[2021-01-06] MEDS: bumetanide 1 mg Tablet 2 MG PO (22:19)
[2021-01-06] MEDS: insulin glargine 100 units/1 mL 10 UNIT SUBCUT (22:19)
[2021-01-07] MEDS: cloNIDine 0.1 mg Tablet 0.2 MG PO ×2 (00:01→10:14)
[2021-01-07 03:30] VITALS: BP 151/80; PULSE 67; RESP 20; TEMP 36.3; O2SAT 96
[2021-01-07 05:34] LABS: Basophils # 0.1 10^3/uL (0.0-0.1); Eosinophils # 0.7 10^3/uL (0.0-0.8); Eosinophils % 10.3 %; Hematocrit 34.1 % (42.0-52.0); Hemoglobin 10.5 g/dL (11.7-16.6); Lymphocytes # 0.9 10^3/uL (0.8-4.8); Lymphocytes % 12.6 %; Mean Corpuscular HGB Conc 30.8 g/dL (30.0-36.0); Mean Corpuscular Hemoglobin 29.5 pg (28.0-34.0); Mean Corpuscular Volume 95.8 fL (80-94); Mean Platelet Volume 11.5 fL (7.4-10.4); Monocytes # 0.8 10^3/uL (0.2-0.9); Neutrophils # 4.63 10^3/uL (1.8-7.7); Neutrophils % 64.8 %; Nucleated Red Blood Cells % 0 %; Platelet Count 129 10^3/cmm (130-400); Red Blood Count 3.56 10^6/uL (4.1-5.3); White Blood Count 7.2 10^3/uL (4.0-10.0)
[2021-01-07 05:54] LABS: Blood Urea Nitrogen 55 mg/dL (6-20); Calcium 8.6 mg/dL (8.5-10.5); Carbon Dioxide 26 mmol/L (22-29); Chloride 100 mmol/L (98-107); Glomerular Filtration Rate 14.3 mL/min (90-130); Glucose 202 mg/dL (65-115); Magnesium 1.9 mg/dL (1.7-2.3); Osmolality Calculated 303 mOsm/kg (285-295); Sodium 136 mmol/L (136-145)
[2021-01-07 05:57] VITALS: PULSE 70
[2021-01-07] MEDS: venlafaxine ER (24HR) 150 mg Capsule PO (06:36)
[2021-01-07 06:51] LABS: Glucose Point of Care 234 mg/dL (70-110)
[2021-01-07 07:24] VITALS: BP 161/81; PULSE 69; RESP 18; TEMP 36.7; O2SAT 92
--- NOTE | 2021-01-07 09:39 | PM.DCS ---
Discharge Providers Date of Admission: 01/05/21 13:54 Date of Discharge: January 07, 2021 Attending Provider at Admission: Paul Freeman MD Attending Provider at Discharge: Paul Freeman MD Primary Care Provider: Sulma Wetzel MD Diagnoses at Discharge Discharge Diagnosis (1) Syncope: (2) Chronic respiratory failure with hypoxia and hypercapnia: (3) Heart failure: (4) End stage renal disease on dialysis: (5) Elevated troponin: (6) Hypertension: (7) Diabetes: (8) COPD (chronic obstructive pulmonary disease): (9) Anemia: (10) Sinus bradycardia: (11) Morbid obesity with BMI of 40.0-44.9, adult: (12) Obesity hypoventilation syndrome: Reason for Visit Reason for Visit: SYNCOPE Hospital Course Hospital Course Akil Velasco is a 50 year old male with past medical history of hypertension diabetes heart failure with preservation fraction, end-stage renal disease dialysis dependent MWF (Has tunneled dialysis catheter ) Covid pneumonia survivor, COPD, came in today with chief complaint of syncopal episodes during dialysis, he was 30 minutes into his regular dialysis session.He states he can remember everything that happened he could hear people but he could not really respond, the episode lasted close to 10 minutes as per the patient account.Dialysis session was cut short and he was sent to the ER for further management.When I saw the patient in the ER he was alert awake and oriented, he denied any chest pain, shortness of breath , any prodromal symptoms, headache, nausea vomiting, palpitation. Of note patient has recently received his second dose of Covid vaccine on Sunday and since then he has been feeling mild Covid-like symptoms. Upon arrival in the ER he was worked up for above-mentioned complaint: Imaging studies: CT angio chest PE protcl: No central pulmonary emboli, mild pulmonary edema.Marked cardiomegaly and a small pericardial effusion. EKG: Sinus bradycardia. ABG: pH: 7.28 , PCO2: 59, PO2: 36, FiO2: 30%. He was admitted for the management of syncope, likely secondary to transient hypotension or cardiac arrhythmia during dialysis,CT chest angio has ruled out PE. Has no focal neurological deficit: Hence CT head without contrast will have no importance. Has recent 2D echo.Will avoid carotid Doppler: There is no carotid bruit: Telemetry monitoring showed sinus sinus bradycardia, carvedilol was kept on hold during the hospital stay, at the time of discharge it was restarted at a much lower dose of 12.5 mg every 12 hours daily as compared to 25 mg every 12 hours daily. A number of changes were also made to his hypertension medications Clonidine dose was decreased to 0.2 mg every 8 hours daily from 0.3 mg every 8 hours, hydralazine dose was decreased to 50 mg 3 times daily from 100 mg 3 times daily. Patient was continued on dialysis.He was also managed for acute on chronic hypoxic hypercapnic respiratory failure likely secondary to volume overload, during the hospital stay patient was initially kept on BiPAP, and was continued on dialysis, his respiratory status was at his baseline at the time of discharge. There was no syncopal episode during his hospital stay. Patient so far has responded well to the above medical management and is being discharged in stable condition to home. Patient will continue to follow primary care physician as an outpatient. Physical Exam Const: COMMON NORMALS: patient oriented x3 HENMT: COMMON NORMALS: normocephalic and atraumatic HEAD & SCALP: normocephalic and atraumatic Chest: CHEST: Yes Symmetrical chest wall rise Resp: COMMON NORMALS: clear to auscultation bilaterally EFFORT & INSPECTION: Yes symmetric chest movement AUSCULTATION: clear to auscultation bilaterally Cardio: COMMON NORMALS: regular rate, regular rhythm, S1 normal heart sound present, S2 normal heart sound present, No gallops present (Cardio), No murmurs present (Cardio), No rub (Cardio) and Peripheral pulses 2+ throughout RATE: regular rate RHYTHM: regular rhythm HEART SOUNDS: S1 normal heart sound present and S2 normal heart sound present PERIPHERAL PULSES: Peripheral pulses 2+ throughout GI: COMMON NORMALS: Normal to inspection, nondistended, normoactive bowel sounds present, Soft to palpation, non-tender, No hepatosplenomegaly present and no masses AUSCULTATION: Yes normoactive bowel sounds PALPATION: Yes Soft to palpation and Yes No hepatosplenomegaly present RECTAL EXAM: Yes deferred Extremity: NARRATIVE EXTREMITY EXAM: 1+ bilateral pitting lower extremity edema present Neuro: COMMON NORMALS: patient oriented x3 Discharge Data Data Completed and Pending: Completed Studies During Hospitalization Category Date Time Status CT angio chest PE protcl [id number] Stat Cat Scan 01/05/21 12:34 Completed XR chest 1V jonas ble [id number] Stat Exams 01/05/21 12:04 Completed Pending at discharge Category Date Time Status Basic Metabolic P arslan AM LABS Lab 01/08/21 04:00 Ordered Complete Blood Co unt w/Auto AM LABS Lab 01/08/21 04:00 Ordered Magnesium AM LABS Lab 01/08/21 04:00 Ordered Phosphorus AM LAB S Lab 01/08/21 04:00 Ordered Labs from last 24 hours 01/07/21 01/07/21 01/07/21 06:35 04:49 04:49 WBC 7.2 RBC 3.56 L Hgb 10.5 L Hct 34.1 L MCV 95.8 H MCH 29.5 MCHC 30.8 RDW 16.0 H Plt Count 129 L MPV 11.5 H Neut % (Auto) 64.8 Lymph % (Auto) 12.6 [place] % (Auto) 11.0 Eos % (Auto) 10.3 Baso % (Auto) 1.0 Neut # (Auto) 4.63 Lymph # (Auto) 0.9 [place] # (Auto) 0.8 Eos # (Auto) 0.7 Baso # (Auto) 0.1 Nucleated RBC % (a uto) 0 Nucleated RBCs # 0.0 Sodium 136 Potassium 5.0 Chloride 100 Carbon Dioxide 26 Anion Gap 15.0 BUN 55 H Creatinine 4.4 H GFR Calculation 14.3 L Glucose 202 H POC Glucose 234 H Calculated Osmolal ity 303 H Calcium 8.6 Phosphorus 3.0 Magnesium 1.9 Urine Color Urine Appearance Urine pH Ur Specific Gravit y Urine Protein Urine Glucose (UA) Urine Ketones Urine Blood Urine Nitrate Urine Bilirubin Urine Urobilinogen Ur Leukocyte Leisa ase Urine RBC Urine WBC Ur Squamous Epith Cells Amorphous Sediment Urine Bacteria Hyaline Casts Urine Mucus 01/06/21 01/06/21 01/06/21 20:44 17:18 12:26 WBC RBC Hgb Hct MCV MCH MCHC RDW Plt Count MPV Neut % (Auto) Lymph % (Auto) [place] % (Auto) Eos % (Auto) Baso % (Auto) Neut # (Auto) Lymph # (Auto) [place] # (Auto) Eos # (Auto) Baso # (Auto) Nucleated RBC % (a uto) Nucleated RBCs # Sodium Potassium Chloride Carbon Dioxide Anion Gap BUN Creatinine GFR Calculation Glucose POC Glucose 178 H 155 H 201 H Calculated Osmolal ity Calcium Phosphorus Magnesium Urine Color Urine Appearance Urine pH Ur Specific Gravit y Urine Protein Urine Glucose (UA) Urine Ketones Urine Blood Urine Nitrate Urine Bilirubin Urine Urobilinogen Ur Leukocyte Leisa ase Urine RBC Urine WBC Ur Squamous Epith Cells Amorphous Sediment Urine Bacteria Hyaline Casts Urine Mucus 01/06/21 10:30 WBC RBC Hgb Hct MCV MCH MCHC RDW Plt Count MPV Neut % (Auto) Lymph % (Auto) [place] % (Auto) Eos % (Auto) Baso % (Auto) Neut # (Auto) Lymph # (Auto) [place] # (Auto) Eos # (Auto) Baso # (Auto) Nucleated RBC % (a uto) Nucleated RBCs # Sodium Potassium Chloride Carbon Dioxide Anion Gap BUN Creatinine GFR Calculation Glucose POC Glucose Calculated Osmolal ity Calcium Phosphorus Magnesium Urine Color Yellow Urine Appearance Cloudy Urine pH 5 Ur Specific Gravit y 1.015 Urine Protein 3+ H Urine Glucose (UA) 4+ H Urine Ketones Negative Urine Blood Neg Urine Nitrate Negative Urine Bilirubin Neg Urine Urobilinogen Norm Ur Leukocyte Leisa ase Negative Urine RBC 0-4 H Urine WBC 0-4 H Ur Squamous Epith Cells 0-4 H Amorphous Sediment Not Reportable Urine Bacteria 1+ H Hyaline Casts 0-4 H Urine Mucus 1+ Vitals: Last Vital Signs Temp 98.1 F 01/07/21 07:24 Pulse 69 01/07/21 07:24 Resp 18 01/07/21 07:24 BP 161/81 01/07/21 07:24 Pulse Ox 92 01/07/21 07:24 Discharge Plan Discharge Patient Disposition: Home Condition: Stable Prescriptions: Continued Lantus U-100 Insulin 100 unit/mL solution 15 unit SUBCUT DAILY RF: 0 aspirin 81 mg Tablet,Delayed Release (Dr/Ec) 81 mg PO DAILY RF: 0 tamsulosin 0.4 mg capsule 0.8 mg PO QPM RF: 0 venlafaxine 150 mg Capsule,Extended Release 24hr 150 mg PO QAM RF: 0 isosorbide mononitrate 120 mg Tablet Extended Release 24 Hr 120 mg PO DAILY RF: 0 acetaminophen [Tylenol] 325 mg Tablet 650 mg PO Q6H PRN (Reason: pain) RF: 0 olanzapine 5 mg Tablet 2.5 mg PO BEDTIME Qty: 30 RF: 0 metolazone 5 mg Tablet 5 mg PO DAILY Qty: 30 RF: 0 sodium chloride [Saline Mist] 0.65 % Aerosol,[place] 1 spray nasal PRN PRN (Reason: Dryness) Qty: 50 RF: 0 atorvastatin 80 mg tablet 80 mg PO DAILY RF: 0 bumetanide 2 mg tablet 2 mg PO BEDTIME RF: 0 alprazolam 0.5 mg tablet 0.5 mg PO DAILY PRN (Reason: Anxiety) RF: 0 citalopram 20 mg tablet 20 mg PO DAILY RF: 0 sodium bicarbonate 650 mg tablet 650 mg PO TID RF: 0 amlodipine 10 mg tablet 10 mg PO DAILY RF: 0 pantoprazole 40 mg tablet,delayed release (DR/EC) 40 mg PO BID RF: 0 gabapentin 300 mg capsule 300 mg PO QID RF: 0 insulin lispro [Humalog U-100 Insulin] 100 unit/mL solution See Rx Instructions .ROUTE .COMPLEX RF: 0 sevelamer carbonate 800 mg tablet 800 mg PO BID RF: 0 Tresiba FlexTouch U-100 100 unit/mL (3 mL) insulin pen 40 unit SUBCUT DAILY RF: 0 albuterol sulfate 90 mcg/actuation HFA aerosol inhaler 2 inh inhalation Q6H PRN (Reason: shortness of breath or wheezing) Qty: 8.5 RF: 0 trazodone 50 mg Tablet 50 mg PO BEDTIME RF: 0 Changed carvedilol 25 mg tablet 12.5 mg PO BID Qty: 0 RF: 0 clonidine HCl 0.3 mg Tablet 0.2 mg PO Q8H Qty: 0 RF: 0 hydralazine 50 mg Tablet 50 mg PO TID Qty: 90 RF: 0 Discontinued furosemide [Lasix] 40 mg Tablet 80 mg PO BID RF: 0 Discharge Orders: Discharge Order (Routine); Ordered 01/07/21 Ordered By: Paul Freeman Referrals: Sulma Wetzel MD [Primary Care Provider] - 01/13/21 9:00 am Discharge Diet: Diabetic Discharge Activity: Resume usual activity Patient Instructions: COPD, Syncope, Congestive Heart Failure, CHF Stoplight, COPD Stoplight, Opioid Safety Discharge Attestations Time Spent in Discharge Care*: less than 30 min Specific Discharge Activities: educating patient, educating and/or supporting family/caregiver, discussing with pcp/other providers, discussing with child welfare caseworker/social workers/dc planners, documenting/other paperwork and evaluating patient/reviewing data Status at Discharge: Cognitive status at discharge: cognitively intact, Behavioral status at discharge: cooperative, Quality Metrics Clinical Quality Measures During this hospital stay, did patient experience: None Coding Level of Care Code Acute Chg FW DC note Exam Detailed Diagnoses Syncope R55 Chronic respiratory failure with hypoxia and hypercapnia J96.11; J96.12 Heart failure I50.9 End stage renal disease on dialysis N18.6; Z99.2 Elevated troponin R77.8 Hypertension I10 Diabetes E11.9 COPD (chronic obstructive pulmonary disease) J44.9 Anemia D64.9 Sinus bradycardia R00.1 Morbid obesity with BMI of 40.0-44.9, adult E66.01; Z68.41 Obesity hypoventilation syndrome E66.2
[2021-01-07] MEDS: heparin, porcine 1,000 unit/mL INJ 10 mL HE (10:13)
[2021-01-07 10:14] VITALS: BP 161/81
[2021-01-07] MEDS: atorvastatin 40 mg Tablet 80 MG PO (10:14)
[2021-01-07] MEDS: aspirin 81 mg EC Tablet PO (10:14)
[2021-01-07] MEDS: hyDRALAzine 50 mg Tablet PO (10:15)
[2021-01-07] MEDS: isosorbide mononitrate ER 60 mg Tablet 120 MG PO (10:15)
[2021-01-07] MEDS: citalopram 20 mg Tablet PO (10:15)
[2021-01-07] MEDS: metOLazone 5 MG Tablet PO (10:15)
[2021-01-07] MEDS: amlodipine 10 mg Tablet PO (10:15)
[2021-01-07] MEDS: gabapentin 300 mg Capsule PO (10:15)
[2021-01-07] MEDS: pantoprazole DR 40 mg Tablet PO (10:16)
[2021-01-07] MEDS: sevelamer 800 mg Tablet PO (10:16)
[2021-01-07] MEDS: acetaminophen 325 mg Tablet 650 MG PO (10:16)
[2021-01-07] MEDS: heparin 5,000 unit/mL INJ 1 mL 5000 UNIT SUBCUT ×2 (10:17)
--- NOTE | 2021-01-07 12:10 | PM.PN ---
Subjective Subjective: Interval history: Patient is seen and examined on hemodialysis today. He is tolerating his therapy well with no symptoms of syncope. His access is working well. All parameters of dialysis are reviewed. Medications: Reviewed: Yes Medication Review Details: Current Medications Acetaminophen (Acetaminophen 325 Mg Tablet) 650 mg PO Q6H PRN PRN Reason: Mild/Mod Pain Or Temp >/= 101 Albuterol Sulfate (Albuterol 8 Gm Mdi) 2 puff INHALATION Q6H PRN PRN Reason: shortness of breath or wheezing Alprazolam (Alprazolam 0.5 Mg Tablet) 0.5 mg PO DAILY PRN PRN Reason: Anxiety Amlodipine Besylate (Amlodipine 10 Mg Tablet) 10 mg PO DAILY [place] Aspirin (Aspirin 81 Mg Ec Tablet) 81 mg PO DAILY [place] Atorvastatin Calcium (Atorvastatin 40 Mg Tablet) 80 mg PO DAILY [place] Bisacodyl (Bisacodyl 5 Mg Tablet) 10 mg PO DAILY PRN; Protocol PRN Reason: Constipation (see protocol) Bumetanide (Bumetanide 1 Mg Tablet) 2 mg PO BEDTIME [facility] Last Admin: 01/05/21 20:21 Dose: 2 mg Documented by: Citalopram Hydrobromide (Citalopram 20 Mg Tablet) 20 mg PO DAILY [facility] Clonidine HCl (Clonidine 0.1 Mg Tablet) 0.3 mg PO Q8H [facility] Last Admin: 01/06/21 00:22 Dose: 0.3 mg Documented by: Dextrose (Dextrose 50% Syringe 50 Ml) 25 ml IVP ONCE PRN; Protocol PRN Reason: hypoglycemia protocol Dextrose (Dextrose 50% Syringe 50 Ml) 50 ml IVP PRN PRN; Protocol PRN Reason: hypoglycemia protocol Gabapentin (Gabapentin 300 Mg Capsule) 300 mg PO QID [facility] Last Admin: 01/06/21 00:23 Dose: 300 mg Documented by: Glucagon (Glucagon 1 Mg/Ml Inj 1 Ml) 1 mg IM ONCE PRN; Protocol PRN Reason: Adult Acute Hypoglycemia Prot. Heparin Sodium (Beef Lung) (Heparin 5,000 Unit/Ml Inj 1 Ml) 5,000 unit SUBCUT Q8H [facility] Last Admin: 01/06/21 00:21 Dose: 5,000 unit Documented by: Hydralazine HCl (Hydralazine 50 Mg Tablet) 100 mg PO TID [facility] Last Admin: 01/05/21 20:22 Dose: 100 mg Documented by: Dextrose (D5w) 500 mls @ 100 mls/hr IV ONCE PRN; Protocol PRN Reason: Adult Acute Hypoglycemia Prot Insulin Aspart (Insulin Aspart 100 Unit/1 Ml) 0 unit SUBCUT BEDTIME [facility]; Protocol Last Admin: 01/05/21 20:23 Dose: 6 unit Documented by: Insulin Aspart (Insulin Aspart 100 Unit/1 Ml) 0 unit SUBCUT TIDWM [facility]; Protocol Insulin Glargine (Insulin Glargine 100 Units/1 Ml) 10 unit SUBCUT BEDTIME [facility] Last Admin: 01/05/21 20:23 Dose: 10 unit Documented by: Isosorbide Mononitrate (Isosorbide Mononitrate Er 60 Mg Tablet) 120 mg PO DAILY [place] Metolazone (Metolazone 5 Mg Tablet) 5 mg PO DAILY [place] Naloxone HCl (Naloxone 0.4 Mg/Ml Sdv) 0.1 mg IVP Q2M PRN PRN Reason: OPIATERV Olanzapine (Olanzapine 5 Mg Tablet) 2.5 mg PO BEDTIME [facility] Last Admin: 01/05/21 20: Dose: 2.5 mg Documented by: Ondansetron HCl (Ondansetron 2 Mg/Ml Sdv 2 Ml) 4 mg IVP Q8H PRN PRN Reason: vomiting, or N/V if npo Oxycodone/Acetaminophen (Oxycodone-Apap 5-325 Mg Tablet) 1 tab PO Q4H PRN PRN Reason: SEVERE PAIN Pantoprazole Sodium (Pantoprazole Dr 40 Mg Tablet) 40 mg PO BID [facility] Last Admin: 01/05/21 20:23 Dose: 40 mg Documented by: Sevelamer Carbonate (Sevelamer 800 Mg Tablet) 800 mg PO BID [facility] Last Admin: 01/05/21 20:21 Dose: 800 mg Documented by: Sodium Bicarbonate (Sodium Bicarbonate 650 Mg Tablet) 650 mg PO TID [facility] Last Admin: 01/05/21 20:22 Dose: 650 mg Documented by: Sodium Chloride (Saline Nasal [place] 44ml Btl) 1 spray NASAL PRN PRN PRN Reason: Dryness Tamsulosin HCl (Tamsulosin 0.4 Mg Capsule) 0.8 mg PO QPM [facility] Last Admin: 01/05/21 20:23 Dose: 0.8 mg Documented by: Trazodone HCl (Trazodone 50 Mg Tablet) 50 mg PO BEDTIME [facility] Last Admin: 01/05/21 20:21 Dose: 50 mg Documented by: Venlafaxine HCl (Venlafaxine Er (24hr) 150 Mg Capsule) 150 mg PO QAM [facility] Last Admin: 01/06/21 06:11 Dose: 150 mg Documented by: Vitals/I&O/Wt Last Vital Signs Temp 98.1 F 01/07/21 07:24 Pulse 69 01/07/21 07:24 Resp 18 01/07/21 07:24 BP 161/81 01/07/21 10:14 Pulse Ox 92 01/07/21 07:24 01/06/21 01/07/21 01/07/21 22:59 06:59 14:59 Intake Total 240 / 480 60 / 540 Balance 240 / 480 60 / 540 Physical Exam Narrative: EXAM NARRATIVE: Constitutional: Awake, comfortable HEENT: Wet mucosa, no jvp, non icteric Lungs: Bilaterally decreased in all lung zones CVS: S1 S2, no murmurs Abdo: Soft, BS ok Ext 4: Minimal edema, peripheral perfusion with no cyanosis Neurological: Grossly non-focal Data : 01/07/21 04:49 01/07/21 04:49 A&P Additional A&P Information 1. ESRD Seen and examined on dialysis. 2K bath, ultrafiltration 2-3 L as tolerated. Dose medication for GFR less than 15 on dialysis 2. Syncope Per Dr Freeman and the medical team Stable since hospitalization 3. Hemodynamics Blood pressure currently looks stable, continue to monitor hemodynamics during dialysis. 4. Chronic ESRD issues including anemia, secondary hyperparathyroidism etc. Management per outpatient dialysis unit as part of standard care. 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
[2021-01-07 12:15] LABS: Glucose Point of Care 145 mg/dL (70-110)
[2021-01-07 14:11] VITALS: BP 161/81
== END 2021-01-07 13:40 | disposition home or self-care (01) | DRG 312 ==
LOC: ER 14:08 → ICU 14:42 → MEDSURG 01-06 14:17
PROVIDERS: Internal Medicine Nephrology; Admitting Provider Internal Medicine; Emergency Provider Family Medicine; PCP Internal Medicine; Visit Provider Internal Medicine
DX: I95.3 Hypotension of hemodialysis (principal); N18.6 End stage renal disease; I13.2 Hypertensive heart and chronic kidney disease with heart failure and with stage 5 chronic kidney disease, or end stage renal disease; I50.32 Chronic diastolic (congestive) heart failure; I31.3 Pericardial effusion (noninflammatory); J96.12 Chronic respiratory failure with hypercapnia; J96.11 Chronic respiratory failure with hypoxia; E66.2 Morbid (severe) obesity with alveolar hypoventilation; Z68.41 Body mass index [BMI] 40.0-44.9, adult; E87.2 Acidosis; R55 Syncope and collapse; E11.22 Type 2 diabetes mellitus with diabetic chronic kidney disease; Z99.2 Dependence on renal dialysis; Z86.16 Personal history of COVID-19; J44.9 Chronic obstructive pulmonary disease, unspecified; D63.1 Anemia in chronic kidney disease; Z86.74 Personal history of sudden cardiac arrest; E11.40 Type 2 diabetes mellitus with diabetic neuropathy, unspecified; E11.51 Type 2 diabetes mellitus with diabetic peripheral angiopathy without gangrene; Z85.528 Personal history of other malignant neoplasm of kidney; Z90.5 Acquired absence of kidney; R00.1 Bradycardia, unspecified; D69.6 Thrombocytopenia, unspecified; Z99.81 Dependence on supplemental oxygen; Z79.51 Long term (current) use of inhaled steroids; Z79.82 Long term (current) use of aspirin; Z79.4 Long term (current) use of insulin
CPT/HCPCS: 36415; 36416; 36600; 71045; 71275; 80048; 80051; 80053; 81001; 82009; 82330; 82550; 82805; 82962; 83735; 84100; 84484; 85025; 86706; 86803; 87340; 90935; 93005; 94660; 96372; 96374; 99285; J1644; J1815 ×2; J2405; Q3014; Q9967

== ENCOUNTER → 2021-02-23 08:42 | Outpatient (BNVA) | payer MEDICARE, MEDICAID, SELFPAY | PROVIDERS: PCP Internal Medicine; Visit Provider Podiatrist Foot & Ankle Surgery | DX: S92.322S Displaced fracture of second metatarsal bone, left foot, sequela (principal); S92.342S Displaced fracture of fourth metatarsal bone, left foot, sequela; S92.352S Displaced fracture of fifth metatarsal bone, left foot, sequela; X58.XXXS Exposure to other specified factors, sequela | CPT/HCPCS: 73630 ==

== ENCOUNTER 2021-02-23 09:42 | Outpatient (CLI) | payer MEDICAID, SELFPAY | END 2021-02-23 09:43 | disposition home or self-care (01) | LOC: SPT 09:43 | PROVIDERS: PCP Internal Medicine; Visit Provider Podiatrist Foot & Ankle Surgery | DX: Z46.89 Encounter for fitting and adjustment of other specified devices (principal); M84.375D Stress fracture, left foot, subsequent encounter for fracture with routine healing; X58.XXXD Exposure to other specified factors, subsequent encounter | CPT/HCPCS: 97760; L4361 ==

== ENCOUNTER 2021-03-17 14:58 | Outpatient (CLI) | payer MEDICAID, SELFPAY ==
--- NOTE | 2021-03-17 15:04 | USCV_ITS ---
Akil Velasco Age: 51 Gender: M : 1970 Exam Date: 03/17/2021 15:25 Ordering Phys: Sulma Wetzel MD Technologist: Exam Location: [facility] [place] Indication: LT LEG PAIN AND SWELLING HISTORY: Lower extremity swelling. PROCEDURES: Venous duplex imaging was performed in only the left lower extremity. The following venous structures were evaluated: common femoral vein, profunda vein, proximal portion of the greater saphenous vein, superficial femoral vein, and the popliteal vein. FINDINGS: Normal 2-D Doppler and augmentation and compressibility throughout the lower extremity venous structures. Additional imaging through the proximal calf veins also reveals no thrombus. Limited evaluation of the greater saphenous vein is patent with no thrombus. CONCLUSIONS No DVT left lower extremity. Dr. Lynn Holt DO (Electronically Signed) Final Date: 17 March 2021 15:49 S
== END 2021-03-17 14:59 | disposition home or self-care (01) ==
LOC: RAD 15:02
PROVIDERS: PCP Internal Medicine; Visit Provider Internal Medicine
DX: M79.662 Pain in left lower leg (principal); M79.89 Other specified soft tissue disorders
CPT/HCPCS: 93971

== ENCOUNTER 2021-04-07 13:07 | Outpatient (CLI) | payer MEDICAID, SELFPAY | END 2021-04-07 13:08 | disposition home or self-care (01) | LOC: WOUND 13:08 | PROVIDERS: PCP Internal Medicine; Visit Provider Emergency Medicine | DX: E11.621 Type 2 diabetes mellitus with foot ulcer (principal); L97.522 Non-pressure chronic ulcer of other part of left foot with fat layer exposed | CPT/HCPCS: 11042; 87070; 87077; 87176; 87186; 87205; G0463 ==

== ENCOUNTER 2021-04-11 10:19 | Outpatient (CLI) | payer MEDICAID, SELFPAY | END 2021-04-11 10:20 | disposition home or self-care (01) | LOC: WOUND 10:19 | PROVIDERS: PCP Internal Medicine; Visit Provider Emergency Medicine | DX: E11.621 Type 2 diabetes mellitus with foot ulcer (principal); L97.522 Non-pressure chronic ulcer of other part of left foot with fat layer exposed | CPT/HCPCS: 11042; 99212 ==

== ENCOUNTER 2021-04-18 09:45 | Outpatient (CLI) | payer MEDICARE, MEDICAID, SELFPAY | END 2021-04-18 09:46 | disposition home or self-care (01) | PROVIDERS: PCP Internal Medicine; Visit Provider Emergency Medicine | DX: E11.621 Type 2 diabetes mellitus with foot ulcer (principal); L97.522 Non-pressure chronic ulcer of other part of left foot with fat layer exposed | CPT/HCPCS: 11042; 99212 ==

== ENCOUNTER 2021-04-25 10:28 | Inpatient (IN) | payer MEDICARE, MEDICAID, SELFPAY ==
[2021-04-25] VITALS (27 sets, daily range): BP systolic 84–165; BP diastolic 54–115; PULSE 69–73; RESP 12–24; O2SAT 90–98; BMI 41.5
--- NOTE | 2021-04-25 10:27 | ECG_ITS ---
[facility] Test Date: 2021-04-25 Pat Name: Akil Velasco Department: Room: Gender: Male [employer] Lead: : 1970 Requested By: Jerry Mario Order Number: [id number] MD: Erik Arguelles M.D. Measurements Intervals [place] Rate: 70 P: 44 AK: 213 QRS: 130 QRSD: 121 T: 10 QT: 411 QTc: 443 Interpretive Statements SINUS RHYTHM WITH FIRST DEGREE AV BLOCK POSSIBLE RIGHT VENTRICULAR HYPERTROPHY [SOME/ALL OF: PROMINENT R IN V1, LATE TRANSITION, RAD, JEROME, SSS] POSSIBLE SEPTAL MYOCARDIAL INFARCTION , PROBABLY OLD [30 ms Q WAVE IN V1/V2] Compared to ECG 01/05/2021 18:07:28 First degree AV block now present Atrial abnormality now present Myocardial infarct finding now present Sinus bradycardia no longer present Incomplete right bundle-branch block no longer present ST (T wave) deviation no longer present Electronically Signed On 04-25-2021 22:11:58 CDT by Erik Arguelles M.D. [email or web address]
--- NOTE | 2021-04-25 10:28 | XR_ITS ---
WS: [id number] Exam: XR chest 1V portable [id number] Date/Time of Exam: 04/25/2021 10:43 AM Reason For Exam: dyspnea/cough Comparison 01/05/2021. The heart is enlarged. The lungs are clear and fully expanded. No pleural effusions. The mediastinum is not widened for technique. A double lumen right subclavian dialysis catheter ends at the cavoatria l junction. XR/XR chest 1V portable [id number] IMPRESSION: 1. Cardiac enlargement. No acute process noted. 2. Right-sided central line in place ending at the cavoatrial junction.
[2021-04-25 10:52] LABS: Basophils # 0.1 10^3/uL (0.0-0.1); Basophils % 0.8 %; Eosinophils # 0.4 10^3/uL (0.0-0.8); Eosinophils % 5.6 %; Hemoglobin 10.3 g/dL (11.7-16.6); Lymphocytes # 0.9 10^3/uL (0.8-4.8); Lymphocytes % 11.3 %; Mean Corpuscular HGB Conc 30.3 g/dL (30.0-36.0); Mean Corpuscular Hemoglobin 29.4 pg (28.0-34.0); Mean Corpuscular Volume 97.1 fl (80-94); Mean Platelet Volume 11.4 fL (7.4-10.4); Monocytes # 0.6 10^3/uL (0.2-0.9); Monocytes % 8.4 %; Neutrophils # 5.48 10^3/uL (1.8-7.7); Nucleated Red Blood Cells % 0.3 %; Platelet Count 119 10^3/cmm (130-400); Red Cell Distribution Width 15.3 % (12.1-15.1); White Blood Count 7.5 10^3/uL (4.0-10.0)
[2021-04-25 11:07] LABS: Alanine Aminotransferase 22 U/L (0-41); Albumin Level 3.4 g/dL (3.5-5.2); Alkaline Phosphatase 77 IU/L (40-130); Aspartate Amino Transferase 18 U/L (0-40); Calcium 8.4 mg/dL (8.5-10.5); Carbon Dioxide 20 mmol/L (22-29); Chloride 100 mmol/L (98-107); Creatine Phosphokinase 230 U/L (39-308); Globulin 2.8 g/dL (1.3-4.6); Glomerular Filtration Rate 7.6 mL/min (90-130); Glucose 113 mg/dL (65-115); Osmolality Calculated 306 mOsm/kg (285-295); Sodium 135 mmol/L (136-145); Total Bilirubin 0.2 mg/dL (0.15-1.2); Total Protein 6.2 g/dL (6.6-8.7)
[2021-04-25 11:23] LABS: Blood Urea Nitrogen 82 mg/dL (6-20); Troponin(5th) Baseline 343 ng/L (0-15)
--- NOTE | 2021-04-25 11:30 | PC.PHAR ---
Addendum entered by Ashley Vega 04/25/21 13:18: PT STATES HE TOOK TODAY BUPROPION XL 150MG QAM-PER RACHEL AT DR PINK OFFICE FROM [facility] STATES THE PT SHOULD ONLY BE TAKING EFFEXOR XR 75MG-BOTH RX FILLED ON 04/22/21-PTS LAST VISIT WITH PCP DR TOLBERT WAS Mar Original Note: PT STATES HE TAKES CARE OF HIS OWN MEDICATIONS-PT STATES IF HE IS SUPPOSE TO TAKE TID THEN HE ONLY TAKES BID-NOTES ARE MADE IN THE PHARMACY COMMENTS
--- NOTE | 2021-04-25 11:56 | PC.NURSE ---
PATIENT CONNECTED TO FIRM ADMINISTRATOR PER PROTOCOL.
--- NOTE | 2021-04-25 12:22 | ED_ITS ---
HPI - Dizziness General: Chief Complaint: Dizziness Stated Complaint: SOB, HYPOTENSION History of Present Illness: HPI Narrative: 51-year-old male brought to the emergency room complaining of shortness of breath and hypotension. He was in route to get dialysis. He has end-stage renal disease on hemodialysis he was profoundly hypotensive in talking to him and his he has been on a number of various antihypertensives they get mail delivery refills is concerned that some of the medications that have been adjusted and even stopped he is continue to get refills for and is continued to take and does not believe his medication list is probably very accurate at this point he is taking an extremely large number of antihypertensives. Reviewing his chart previously he had been frequently hypertensive today he is significantly hypotensive and orthostatic. He denies any chest pain. MD elicited complaint: lightheadedness and near syncope Pertinent past history: other (End-stage renal disease on dialysis, history of hypertension, recently started losartan, polypharmacy) Onset (ago): hour(s) Severity: moderate Description: lightheadedness, difficulty walking and near-syncope Context: change in medication Exacerbating factors: movement/ambulation, change in body position and standing Relieving factors: remaining still and lying down Associated symptoms: Reports malaise, nausea, short of breath and weakness; Denies change in hearing, chest pain, chills, cough, diaphoresis, ear discharge, ear pressure, fevers/chills, headache(s), nasal congestion, palpitations, rash, syncope, tinnitus or vomiting Associated neuro symptoms: Deny confusion, difficulty speaking, dysphagia, diplopia, extremity weakness, facial numbness, facial weakness, gait changes, numbness in extremities or visual changes Review of Systems Const: Reports: malaise; Denies: chills or diaphoresis ENMT: Denies: ear discharge, change in hearing, tinnitus or nasal congestion Card: Denies: chest pain, palpitations or syncope Resp: Denies: dyspnea, productive cough or non-productive cough GI: Reports: nausea; Denies: vomiting or dysphagia : Denies: flank pain, dysuria, urinary frequency or urinary urgency Skin/Breast: Denies: rash or pruritus Neuro: Denies: headache(s), numbness in extremities or confusion [facility] ED PFSH: Medical History (Updated 04/25/21 @ 13:47 by Darren Vela MD) Accelerated hypertension Acute on chronic diastolic (congestive) heart failure Acute respiratory failure with hypoxia Acute respiratory failure with hypoxia and hypercapnia [id number] kidney injury Anasarca Anemia Anemia ARDS (adult respiratory distress syndrome) Cancer Cardiac arrest Cataract (lens) fragments in eye following cataract surgery, bilateral CHF (congestive heart failure), NYHA class III Chronic kidney disease Chronic kidney disease, stage IV (severe) Chronic respiratory failure with hypoxia and hypercapnia CKD stage 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 Congestive cardiac failure COPD (chronic obstructive pulmonary disease) Diabetes Diabetes Elevated troponin End stage renal disease on dialysis Fracture of fifth metatarsal bone of left foot Fracture of fourth metatarsal bone of left foot Heart failure Hypertension Hypertension Laceration Metabolic alkalosis Morbid obesity with BMI of 40.0-44.9, adult Neuropathy Obesity hypoventilation syndrome Obstructive sleep apnea Pneumonia due to 2018- PVD (peripheral vascular disease) Renal cell carcinoma History bilateral renal cell carcinoma 2007 then recurrence on the contralateral side 2011. No recurrence for long-term follow-up with some suspicion on CT scan April 2020. Respiratory failure with hypoxia and hypercapnia Restrictive lung disease Sinus bradycardia Syncope Type 2 diabetes mellitus with diabetic polyneuropathy Urinary retention Surgical History H/O partial nephrectomy bilateral Hx of lymph node excision Family History Father , AT AGE 65 Diabetes Cancer Metastatic prostate cancer to liver Mother , AT AGE 72 Diabetes Grandfather Diabetes Cancer Other Hyperlipidemia Social History Second hand smoke exposure: Yes Smoking risk assessment/counseling performed?: Yes Alcohol intake: current Alcohol intake frequency: holidays/special occasions only Lives independently: Yes Household members: spouse Housing: House Marital status: service: No Current occupational status: retired Pets and animals: Yes History of recent travel: No Current gender identity: Male Physical Exam Const: COMMON NORMALS: no acute distress GENERAL APPEARANCE: cooperative and comfortable ORIENTATION/CONSCIOUSNESS: Yes awake, Yes oriented to person, Yes oriented to place and Yes oriented to time HENMT: COMMON NORMALS: normocephalic, atraumatic and hearing grossly normal bilaterally HEAD & SCALP: normocephalic and atraumatic Neck/C-Spine: COMMON NORMALS: no JVD Resp: COMMON NORMALS: normal respiratory effort, No retractions, No use of accessory muscles and clear to auscultation bilaterally AUSCULTATION: clear to auscultation bilaterally Cardio: COMMON NORMALS: no JVD, regular rate, regular rhythm and No murmurs present (Cardio) RATE: regular rate RHYTHM: regular rhythm GI: COMMON NORMALS: Soft to palpation and No hepatosplenomegaly present AUSCULTATION: Yes normoactive bowel sounds PALPATION: Yes Soft to palpation, No Tenderness to palpation present (GI), No Guarding due to palpation present (GI) and Yes No hepatosplenomegaly present Extremity: COMMON NORMALS: normal to inspection, capillary refill normal, no clubbing, cyanosis or edema, no calf tenderness and no pedal edema Neuro: SENSORIUM/ORIENTATION: Yes oriented to person, Yes oriented to place and Yes oriented to time Skin: COMMON NORMALS: no rashes or lesions noted GENERAL SKIN EXAM: no rashes or lesions noted Course Vital Signs: Vital signs: Vital Signs Temperature 99.3 F 04/27/21 07:44 Pulse Rate 84 04/27/21 07:44 Respiratory Rate 18 04/27/21 07:44 Blood Pressure 171/78 04/27/21 07:44 Pulse Oximetry 95 04/27/21 07:44 MDM - Dizziness MDM Narrative: Medical decision making narrative: Patient is a known history of end-stage renal disease and is hypotensive today. Previously been extremely hypertensive is on multiple antihypertensive different classes recently added losartan. While at the wound care clinic today was noted to be severely hypotensive and had a near syncopal episode diverted here. He has a left foot ulcer that has been being treated and has no issues today. In addition to that he is mildly hypoxic. Lab work shows hyperkalemia and significant increase in his creatinine. To some extent this is expected due to his end-stage renal disease and is due for dialysis. Patient given fluids blood pressure did not rebound. Order to keep him here for admission for dialysis. At this point if he is transferred out to the dialysis clinic his hypotension is likely to have them transfer him back here. Additionally he needs medication adjustments. In addition to that his hypoxia is new I suspect it is related to somewhat to fluid overload but may need to be further evaluated discussed with Dr. Landry consulting nephrology. Lab Data: Labs: Lab Results 04/25/21 04/25/21 04/25/21 09:56 09:56 09:56 WBC 7.5 10^3/uL 10^3/ uL (4.0-10.0) RBC 3.50 10^6/uL L 10 ^6/uL (4.1-5.3) Hgb 10.3 g/dL L g/dL (11.7-16.6) Hct 34.0 % L % (42.0-52.0) MCV 97.1 fl H fl (80-94) MCH 29.4 pg pg (28.0-34.0) MCHC 30.3 g/dL g/dL (30.0-36.0) RDW 15.3 % H % (12.1-15.1) Plt Count 119 10^3/cmm L 10 ^3/cmm (130-400) MPV 11.4 fL H fL (7.4-10.4) Neut % (Auto) 73.0 % % Lymph % (Auto) 11.3 % % [place] % (Auto) 8.4 % % Eos % (Auto) 5.6 % % Baso % (Auto) 0.8 % % Neut # (Auto) 5.48 10^3/uL 10^3 /uL (1.8-7.7) Lymph # (Auto) 0.9 10^3/uL 10^3/ uL (0.8-4.8) [place] # (Auto) 0.6 10^3/uL 10^3/ uL (0.2-0.9) Eos # (Auto) 0.4 10^3/uL 10^3/ uL (0.0-0.8) Baso # (Auto) 0.1 10^3/uL 10^3/ uL (0.0-0.1) Nucleated RBC % (a uto) 0.3 % % Nucleated RBCs # 0.0 /100WBC /100W BC Sodium 135 mmol/L L mmol /L (136-145) Potassium 7.0 mmol/L H* mmo l/L (3.5-5.1) Chloride 100 mmol/L mmol/L (98-107) Carbon Dioxide 20 mmol/L L mmol/ L (22-29) Anion Gap 22.0 H (5-19) BUN 82 mg/dL H* mg/dL (6-20) Creatinine 7.6 mg/dL H* mg/d L (0.7-1.2) GFR Calculation 7.6 mL/min L mL/m in (90-130) Glucose 113 mg/dL mg/dL (65-115) Calculated Osmolal ity 306 mOsm/kg H mOs m/kg (285-295) Calcium 8.4 mg/dL L mg/dL (8.5-10.5) Total Bilirubin 0.2 mg/dL mg/dL (0.15-1.2) AST 18 U/L U/L (0-40) ALT 22 U/L U/L (0-41) Alkaline Phosphata se 77 IU/L IU/L (40-130) Creatine Kinase 230 U/L U/L (39-308) Troponin T Baselin e 343 ng/L H* ng/L (0-15) Troponin T 120 Min [place] Delta Troponin T Troponin T Hi Sens 6Hr Troponin T Hi Sens 6Hr Delta Total Protein 6.2 g/dL L g/dL (6.6-8.7) Albumin 3.4 g/dL L g/dL (3.5-5.2) Globulin 2.8 g/dL g/dL (1.3-4.6) Random Cortisol Urine Color Urine Appearance Urine pH Ur Specific Gravit y Urine Protein Urine Glucose (UA) Urine Ketones Urine Blood Urine Nitrate Urine Bilirubin Urine Urobilinogen Ur Leukocyte Leisa ase Urine RBC Urine WBC Ur Squamous Epith Cells Amorphous Sediment Urine Bacteria Hyaline Casts Urine Mucus 04/25/21 04/25/21 04/25/21 09:56 11:45 12:45 WBC RBC Hgb Hct MCV MCH MCHC RDW Plt Count MPV Neut % (Auto) Lymph % (Auto) [place] % (Auto) Eos % (Auto) Baso % (Auto) Neut # (Auto) Lymph # (Auto) [place] # (Auto) Eos # (Auto) Baso # (Auto) Nucleated RBC % (a uto) Nucleated RBCs # Sodium Potassium Chloride Carbon Dioxide Anion Gap BUN Creatinine GFR Calculation Glucose Calculated Osmolal ity Calcium Total Bilirubin AST ALT Alkaline Phosphata se Creatine Kinase Troponin T Baselin e Troponin T 120 Min [place] 327.2 ng/L H ng/L (0-15) Delta Troponin T -15.8 ABS# L ABS# (0-10) Troponin T Hi Sens 6Hr Troponin T Hi Sens 6Hr Delta Total Protein Albumin Globulin Random Cortisol 14.80 ug/dL ug/dL (2.47-19.5) Urine Color Yellow (Yellow) Urine Appearance Cloudy (CLEAR) Urine pH 5 (5-7) Ur Specific Gravit y 1.020 (1.005-1.030) Urine Protein 3+ H (Negative) Urine Glucose (UA) 1+ H (Normal) Urine Ketones Negative (Negative) Urine Blood Neg (Negative) Urine Nitrate Negative (Negative) Urine Bilirubin Neg (Negative) Urine Urobilinogen Norm mg/dL mg/dL (Negative) Ur Leukocyte Leisa ase Trace H (Negative) Urine RBC 0-4 /hpf H /hpf (0-2) Urine WBC 0-4 /hpf H /hpf (0-5) Ur Squamous Epith Cells 5-10 /hpf H /hpf (0-5) Amorphous Sediment 1+ /hpf /hpf Urine Bacteria 1+ /hpf H /hpf (NONE) Hyaline Casts 0-4 /lpf H /lpf Urine Mucus 1+ /hpf /hpf 04/25/21 17:15 WBC RBC Hgb Hct MCV MCH MCHC RDW Plt Count MPV Neut % (Auto) Lymph % (Auto) [place] % (Auto) Eos % (Auto) Baso % (Auto) Neut # (Auto) Lymph # (Auto) [place] # (Auto) Eos # (Auto) Baso # (Auto) Nucleated RBC % (a uto) Nucleated RBCs # Sodium Potassium Chloride Carbon Dioxide Anion Gap BUN Creatinine GFR Calculation Glucose Calculated Osmolal ity Calcium Total Bilirubin AST ALT Alkaline Phosphata se Creatine Kinase Troponin T Baselin e Troponin T 120 Min [place] Delta Troponin T Troponin T Hi Sens 6Hr 319.7 ng/L H ng/L (0-15) Troponin T Hi Sens 6Hr Delta -23.3 ng/L L ng/L (0-12) Total Protein Albumin Globulin Random Cortisol Urine Color Urine Appearance Urine pH Ur Specific Gravit y Urine Protein Urine Glucose (UA) Urine Ketones Urine Blood Urine Nitrate Urine Bilirubin Urine Urobilinogen Ur Leukocyte Leisa ase Urine RBC Urine WBC Ur Squamous Epith Cells Amorphous Sediment Urine Bacteria Hyaline Casts Urine Mucus Discharge Plan Discharge Patient Disposition: Placed in Observation Admit Provider: Darren Vela Clinical Impression: Acute hyperkalemia, Hypertension, Diabetes mellitus type 2 in obese, ESRD on dialysis, CHF exacerbation, Acute hypotension, Diabetic ulcer of left foot Coding Level of Care Code ED Supervisor Post Wave for Patricia Fwd Exam Comprehensive
--- NOTE | 2021-04-25 12:29 | ECG_ITS ---
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 Measurements Intervals [place] Rate: 70 P: 37 MS: 219 QRS: 105 QRSD: 112 T: 17 QT: 405 QTc: 437 Interpretive Statements SINUS RHYTHM WITH FIRST DEGREE AV BLOCK PATTERN CONSISTENT WITH PULMONARY DISEASE POSSIBLE RIGHT VENTRICULAR HYPERTROPHY [SOME/ALL OF: PROMINENT R IN V1, LATE TRANSITION, RAD, JEROME, SSS] Compared to ECG 04/25/2021 10:47:43 Myocardial infarct finding no longer present Electronically Signed On 04-25-2021 22:21:51 CDT by Erik Arguelles M.D. [id number]
[2021-04-25 12:31] LABS: Troponin 5 2HR 327.2 ng/L (0-15); Troponin 5 2HR Delta -15.8 ABS# (0-10)
[2021-04-25] MEDS: insulin regular-human 100 units/1 mL 10 UNIT IVP (13:04)
[2021-04-25] MEDS: dextrose 50% syringe 50 mL IVP (13:04)
--- NOTE | 2021-04-25 13:04 | PM.HP ---
Providers/Chief Complaint Primary Care Provider: Sulma Wetzel MD Chief Complaint: SOB, HYPOTENSION History of Present Illness Akil Velasco is a 51 year old male who presented to the emergency department with complaints of lightheaded and dizziness. From the emergency department note he was recently started on losartan. Multiple diuretics, antihypertensives are noted in his regimen. His most recent hospitalization was January 05 for a syncopal episode at dialysis. Antihypertensives were decreased at that time, as there was a concern may have may played a role. Patient reports he is trying to take the medication as prescribed. He and his both acknowledge blood pressures been low since last week. From ER nursing it sounds like he did not get a full dialysis on Sunday. He did take his new medication, losartan this morning in addition to his other pills. In the emergency department, he received insulin and glucose. Review of Systems General: Denies: 10 or more systems reviewed and unremarkable except in HPI and below Const: Denies: fever(s) Eyes: Denies: change in vision ENMT: Denies: throat pain Card: Reports: lightheadedness; Denies: chest pain Resp: Denies: dyspnea GI: Denies: abdominal pain : Denies: flank pain Musc: Denies: neck pain Skin/Breast: Denies: rash Neuro: Denies: headache(s) Psych: Denies: anxiety or depression Endo: Denies: polyuria Ramy/Lymph: Denies: easy bruising All/Imm: Denies: urticaria Medications/Allergies Home Medications Medication Instructions Recorded Confirmed Last Taken Type albuterol sulfate 2 inh INHALATION Q6H PRN #8.5 g 08/31/20 04/25/21 Unknown Rx Lantus U-100 Insulin 40 unit SUBCUT FOR[facility] 10/04/20 04/25/21 04/25/21 06:30 History acetaminophen [Tylenol] 975 mg PO BID 10/04/20 04/25/21 04/25/21 06:30 History aspirin 81 mg PO [facility] 10/04/20 04/25/21 04/25/21 06:30 History isosorbide mononitrate 120 mg PO DAILY 10/04/20 04/25/21 01/05/21 History amlodipine 10 mg PO DAILY 11/11/20 04/25/21 01/05/21 History atorvastatin 80 mg PO DAILY 11/11/20 04/25/21 01/04/21 History bumetanide 2 mg PO BID 11/11/20 04/25/21 01/04/21 History citalopram 20 mg PO DAILY PRN 11/11/20 04/25/21 01/05/21 History gabapentin 300 mg PO QID 11/11/20 04/25/21 01/05/21 History sevelamer carbonate See Rx Instructions .ROUTE .COMPLEX 11/11/20 04/25/21 01/05/21 History sodium bicarbonate 650 mg PO BID 11/11/20 04/25/21 04/25/21 History trazodone 50 mg PO BEDTIME PRN 01/05/21 04/25/21 01/04/21 History [place] Boot to the left #1 ea 02/23/21 04/25/21 Unknown Rx bupropion HCl 150 mg PO QAM 04/25/21 04/25/21 04/25/21 History carvedilol 25 mg PO BID 04/25/21 04/25/21 04/25/21 06:30 History clonidine HCl 0.2 mg PO BID 04/25/21 04/25/21 04/25/21 History docusate sodium [Stool Softener] 100 mg PO DAILY 04/25/21 04/25/21 Unknown History hydralazine 100 mg PO BID 04/25/21 04/25/21 04/25/21 History hydroxyzine pamoate 25 mg PO BEDTIME PRN 04/25/21 04/25/21 Unknown History insulin aspart U-100 [Novolog 10 - 15 unit SUBCUT TID PRN 04/25/21 04/25/21 Unknown History U-100 Insulin aspart] losartan 50 mg PO QAM 04/25/21 04/25/21 04/25/21 06:30 History metolazone 5 mg PO DAILY 04/25/21 04/25/21 Unknown History venlafaxine 75 mg PO DAILY 04/25/21 04/25/21 Unknown History vit B,I-PG-atdu-selen-vit D3-E 1 tab PO DAILY 04/25/21 04/25/21 Unknown History [RenaPlex-D] Allergies Allergy/AdvReac Type Severity Reaction Status Date / Time No Known Allergies Allergy Verified 03/15/21 14:51 PFSH Acute PFSH: Medical History (Updated 04/25/21 @ 13:47 by Darren Vela MD) Accelerated hypertension Acute on chronic diastolic (congestive) heart failure Acute respiratory failure with hypoxia Acute respiratory failure with hypoxia and hypercapnia Bpxpi-fo-bkfrymf kidney injury Anasarca Anemia Anemia ARDS (adult respiratory distress syndrome) Cancer Cardiac arrest Cataract (lens) fragments in eye following cataract surgery, bilateral CHF (congestive heart failure), NYHA class III Chronic kidney disease Chronic kidney disease, stage IV (severe) Chronic respiratory failure with hypoxia and hypercapnia CKD stage 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 Congestive cardiac failure COPD (chronic obstructive pulmonary disease) Diabetes Diabetes Elevated troponin End stage renal disease on dialysis Fracture of fifth metatarsal bone of left foot Fracture of fourth metatarsal bone of left foot Heart failure Hypertension Hypertension Laceration Metabolic alkalosis Morbid obesity with BMI of 40.0-44.9, adult Neuropathy Obesity hypoventilation syndrome Obstructive sleep apnea Pneumonia due to 2018-nCo PVD (peripheral vascular disease) Renal cell carcinoma History bilateral renal cell carcinoma 2007 then recurrence on the contralateral side 2011. No recurrence for long-term follow-up with some suspicion on CT scan April 2020. Respiratory failure with hypoxia and hypercapnia Restrictive lung disease Sinus bradycardia Syncope Type 2 diabetes mellitus with diabetic polyneuropathy Urinary retention Surgical History H/O partial nephrectomy bilateral Hx of lymph node excision Family History Father , AT AGE 65 Diabetes Cancer Metastatic prostate cancer to liver Mother , AT AGE 72 Diabetes Grandfather Diabetes Cancer Other Hyperlipidemia Social History Second hand smoke exposure: Yes Smoking risk assessment/counseling performed?: Yes Alcohol intake: current Alcohol intake frequency: holidays/special occasions only Lives independently: Yes Household members: spouse Housing: House Marital status: service: No Current occupational status: retired Pets and animals: Yes History of recent travel: No Current gender identity: Male Vitals/I&O/Wt Last Vital Signs Pulse 69 04/25/21 12:05 Resp 20 H 04/25/21 12:05 BP 84/60 04/25/21 12:05 Pulse Ox 91 04/25/21 12:05 Weight last 48 hrs Weight 142.882 kg Physical Exam Narrative: EXAM NARRATIVE: General exam is a sleepy appearing white male, in no distress but occasionally has a myoclonic jerk to his feet or hands HEENT: Pupils equally round. Oropharynx clear. Neck is supple no lymphadenopathy or thyromegaly Cardiovascular regular rate and rhythm without murmur. Vascular access right chest Lungs clear but with diminished breath sounds bilaterally Abdomen soft, obese, nontender. No obvious organomegaly exam is deferred Extremities 1+ edema lower extremities. AV fistula left upper extremity with bruit. Diabetic foot ulcer left foot, plantar surface, lateral side without evidence of infection. No cyanosis or clubbing. Skin without rash Neuro no focal deficits Data : 04/25/21 09:56 04/25/21 09:56 Other data: EKG demonstrates sinus rhythm, normal axis, borderline QRS prolongation, first-degree AV block, no concerning ST or T wave changes. Chest x-ray without infiltrate LFTs normal Troponin III 43 with repeat 327 Urinalysis with 0-4 reds 0-4 whites A&P Assessment and plan (1) Acute hypotension: Received some fluid in the emergency department No evidence currently of infectious source. Considering this has been going on for several days, with lower blood pressure and significant multiple medicines for hypertension including 1 recently added this could be medication effect. Hopefully with dialysis, blood pressure will improve if it is secondary to antihypertensives Hold all antihypertensives, sedative medications. Will need to review need for all medications prior to discharge. Status: Acute (2) Acute hyperkalemia: Calcium gluconate now Insulin and glucose already given Dialysis as soon as possible Nephrology consultation Status: Acute (3) ESRD on dialysis: See above Status: Acute (4) Chronic ulcer of left foot with fat layer exposed: No evidence of active infection Status: Acute (5) Diabetes mellitus type 2 in obese: Mild sliding scale insulin Status: Acute (6) CHF (congestive heart failure), NYHA class III: No evidence of acute exacerbation, last EF preserved Now primarily controlled with fluid removal with hemodialysis. Status: Acute Qualifiers: Congestive heart failure type: diastolic Congestive heart failure chronicity: chronic Qualified Code(s): I50.32 - Chronic diastolic (congestive) heart failure Additional A&P Information Sleep apnea. BiPAP while sleeping. Multiple other medical problems as outlined in past medical history. Full code Heparin for DVT prophylaxis Attestations Medical Necessity Statement*: Will need greater than 2 midnight stay for evaluation and treatment of hypotension, renal failure, severe hyperkalemia Coding Level of Care Code Acute Guide Domestic Tour for Francisco Javierg Fwd Diagnoses Acute hypotension I95.9 Acute hyperkalemia E87.5 ESRD on dialysis N18.6; Z99.2 Chronic ulcer of left foot with fat layer exposed L97.522 Diabetes mellitus type 2 in obese E11.69; E66.9 CHF (congestive heart failure), NYHA class III I50.32 Congestive heart failure type: diastolic Congestive heart failure chronicity: chronic
[2021-04-25 13:19] LABS: Add Urine Microscopic? YES; Bilirubin Urine Neg (Negative); Blood Urine Neg (Negative); Glucose Urine UA 1+ (Normal); Ketones Urine Negative (Negative); Leukocyte Esterase Urine Trace (Negative); Nitrate Urine Negative (Negative); Protein Urine 3+ (Negative); RBC Urine 0-4 /hpf (0-2); Urine Appearance Cloudy (CLEAR); Urine Color Yellow (Yellow); Urobilinogen Urine Norm (Negative); WBC Urine 0-4 /hpf (0-5); pH Urine 5 (5-7)
[2021-04-25 13:20] LABS: Amorphous Sediment Urine 1+ /hpf; Bacteria Urine 1+ /hpf; Hyaline Casts Urine 0-4 /lpf; Mucus Urine 1+ /hpf
--- NOTE | 2021-04-25 14:14 | P.CONIM_ITS ---
Providers/Reason For Consult Consulting Physician/Specialty*: Nephrology Reason for Consult*: Eval for ESRD Primary Care Provider: Sulma Wetzel MD History of Present Illness History of Present Illness Mr. Velasco is well-known to our team from prior hospitalizations. He was at [facility] care today feeling dizzy and was subsequently sent to our facility for evaluation. On arrival his blood pressure was soft at 84/60. He was also found to have elevation in serum potassium was 7. He is on dialysis on Sunday, Sunday and Sunday. He did not get a full session of dialysis on Sunday leaving after about 60% of the treatment. Dialysis access has been working well with no recent trouble. No extremity edema, shortness of breath or other hypervolemic symptoms no uremic symptoms. Review of Systems Narrative: ROS - 12 point review of systems completed per HPI and subjective assessment, this includes Constitutional: No weakness, fatigue Respiratory: No SOB on exertion, comfortable at rest CardioVasc: No chest pain, palpitations Gastrointestinal: No nausea, no vomiting Neurological: No seizures, no AMS Derm: No new rashes, lesions or wounds Immunological: No seasonal and no food allergies Meds/Allergies Home Medications and Allergies Home Medications Medication Instructions Recorded Confirmed Last Taken Type albuterol sulfate 2 inh INHALATION Q6H PRN #8.5 g 08/31/20 04/25/21 Unknown Rx Lantus U-100 Insulin 40 unit SUBCUT QAM 10/04/20 04/25/21 04/25/21 06:30 History acetaminophen [Tylenol] 975 mg PO BID 10/04/20 04/25/21 04/25/21 06:30 History aspirin 81 mg PO QAM 10/04/20 04/25/21 04/25/21 06:30 History isosorbide mononitrate 120 mg PO DAILY 10/04/20 04/25/21 01/05/21 History amlodipine 10 mg PO DAILY 11/11/20 04/25/21 01/05/21 History atorvastatin 80 mg PO DAILY 11/11/20 04/25/21 01/04/21 History bumetanide 2 mg PO BID 11/11/20 04/25/21 01/04/21 History citalopram 20 mg PO DAILY PRN 11/11/20 04/25/21 01/05/21 History gabapentin 300 mg PO QID 11/11/20 04/25/21 01/05/21 History sevelamer carbonate See Rx Instructions .ROUTE .COMPLEX 11/11/20 04/25/21 01/05/21 History sodium bicarbonate 650 mg PO BID 11/11/20 04/25/21 04/25/21 History trazodone 50 mg PO BEDTIME PRN 01/05/21 04/25/21 01/04/21 History [place] Boot to the left #1 ea 02/23/21 04/25/21 Unknown Rx bupropion HCl 150 mg PO QAM 04/25/21 04/25/21 04/25/21 History carvedilol 25 mg PO BID 04/25/21 04/25/21 04/25/21 06:30 History clonidine HCl 0.2 mg PO BID 04/25/21 04/25/21 04/25/21 History docusate sodium [Stool Softener] 100 mg PO DAILY 04/25/21 04/25/21 Unknown History hydralazine 100 mg PO BID 04/25/21 04/25/21 04/25/21 History hydroxyzine pamoate 25 mg PO BEDTIME PRN 04/25/21 04/25/21 Unknown History insulin aspart U-100 [Novolog 10 - 15 unit SUBCUT TID PRN 04/25/21 04/25/21 Unknown History U-100 Insulin aspart] losartan 50 mg PO QAM 04/25/21 04/25/21 04/25/21 06:30 History metolazone 5 mg PO DAILY 04/25/21 04/25/21 Unknown History venlafaxine 75 mg PO DAILY 04/25/21 04/25/21 Unknown History vit B,G-YQ-inks-selen-vit D3-E 1 tab PO DAILY 04/25/21 04/25/21 Unknown History [RenaPlex-D] Allergies Allergy/AdvReac Type Severity Reaction Status Date / Time No Known Allergies Allergy Verified 03/15/21 14:51 PFSH Acute PFSH: Medical History (Updated 04/25/21 @ 13:47 by Darren Vela MD) Accelerated hypertension Acute on chronic diastolic (congestive) heart failure Acute respiratory failure with hypoxia Acute respiratory failure with hypoxia and hypercapnia [id number] kidney injury Anasarca Anemia Anemia ARDS (adult respiratory distress syndrome) Cancer Cardiac arrest Cataract (lens) fragments in eye following cataract surgery, bilateral CHF (congestive heart failure), NYHA class III Chronic kidney disease Chronic kidney disease, stage IV (severe) Chronic respiratory failure with hypoxia and hypercapnia CKD stage 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 Congestive cardiac failure COPD (chronic obstructive pulmonary disease) Diabetes Diabetes Elevated troponin End stage renal disease on dialysis Fracture of fifth metatarsal bone of left foot Fracture of fourth metatarsal bone of left foot Heart failure Hypertension Hypertension Laceration Metabolic alkalosis Morbid obesity with BMI of 40.0-44.9, adult Neuropathy Obesity hypoventilation syndrome Obstructive sleep apnea Pneumonia due to 2018-nCoV PVD (peripheral vascular disease) Renal cell carcinoma History bilateral renal cell carcinoma 2007 then recurrence on the contralateral side 2011. No recurrence for long-term follow-up with some suspicion on CT scan April 2020. Respiratory failure with hypoxia and hypercapnia Restrictive lung disease Sinus bradycardia Syncope Type 2 diabetes mellitus with diabetic polyneuropathy Urinary retention Surgical History H/O partial nephrectomy bilateral Hx of lymph node excision Family History Father , AT AGE 65 Diabetes Cancer Metastatic prostate cancer to liver Mother , AT AGE 72 Diabetes Grandfather Diabetes Cancer Other Hyperlipidemia Social History Second hand smoke exposure: Yes Smoking risk assessment/counseling performed?: Yes Alcohol intake: current Alcohol intake frequency: holidays/special occasions only Lives independently: Yes Household members: spouse Housing: House Marital status: service: No Current occupational status: retired Pets and animals: Yes History of recent travel: No Current gender identity: Male Vitals/I&O/Wt Last Vital Signs Pulse 69 04/25/21 12:05 Resp 20 H 04/25/21 12:05 BP 84/60 04/25/21 12:05 Pulse Ox 91 04/25/21 12:05 Weight last 48 hrs Weight 142.882 kg Physical Exam Narrative: EXAM NARRATIVE: Constitutional: Awake, comfortable HEENT: Wet mucosa, no jvp, non icteric Lungs: Bilaterally clear without discernible wheeze, rales in all lung zones CVS: S1 S2, no murmurs Abdo: Soft, BS ok Ext 4: Minimal edema, peripheral perfusion with no cyanosis Neurological: Grossly non-focal A&P Additional A&P Information 1. ESRD We'll plan to emergency hemodialysis this afternoon, given our limitations in terms of staffing availability, will do 2 hours of dialysis today to bring his potassium into a safe range and evaluate him for additional dialysis sessions tomorrow. Continue MWF schedule otherwise. He has been counseled about dialysis compliance. 2. Hyperkalemia In part secondary to the losartan and not completing his full dialysis session prior to the weekend. I did give temporizing therapy in the emergency room, dialysis will bring this down definitively. 3. Hypertension He is clearly overmedicated at this time we have to cut back on his antihypertensive medications. 4. Chronic ESRD issues To be dealt with in the outpatient clinic, continue home medications and binders etc. 5. Disposition Likely home in the morning if he is hemodynamically stable and potassium is controlled. John Peters MD Nephrology [phone] Patient seen and examined via telemedicine, with the assistance of the bedside RN > 25 min spent in evaluation and mgmt of patient Consult Attestations Medical Necessity Statement: Eval for ESRD Coding Level of Care Code Acute Arson Investigator for Patricia Reid
--- NOTE | 2021-04-25 16:29 | ECG_ITS ---
[facility] Test Date: 2021-04-25 Pat Name: Akil Velasco Department: Room: Gender: Male Travel Med Surg Rn: : 1970 Requested By: Jerry Mario Order Number: [id number] MD: Erik Arguelles M.D. Measurements Intervals [place] Rate: 66 P: 30 AR: 210 QRS: 114 QRSD: 118 T: 9 QT: 424 QTc: 444 Interpretive Statements SINUS RHYTHM WITH FIRST DEGREE AV BLOCK WITH OCCASIONAL VENTRICULAR PREMATURE COMPLEXES PATTERN CONSISTENT WITH PULMONARY DISEASE POSSIBLE RIGHT VENTRICULAR HYPERTROPHY [SOME/ALL OF: PROMINENT R IN V1, LATE TRANSITION, RAD, JEROME, SSS] Compared to ECG 04/25/2021 13:29:25 Ventricular premature complex(es) now present Electronically Signed On 04-25-2021 22:21:18 CDT by Erik Arguelles M.D. [id number]
[2021-04-25 17:47] LABS: Troponin 5 6HR 319.7 ng/L (0-15); Troponin 5 6HR Delta -23.3 ng/L (0-12)
[2021-04-25] MEDS: heparin, porcine 1,000 unit/mL INJ 10 mL HE (18:14)
[2021-04-26] VITALS (114 sets, daily range): BP systolic 77–170; BP diastolic 57–106; PULSE 62–109; RESP 16–29; TEMP 36.2–37.4; O2SAT 78–97; BMI 41.7
--- NOTE | 2021-04-26 00:09 | PC.NURSE ---
attempted to call report. Jyoti states that ICU 12 is still dirty. Will reattempt to call report.
--- NOTE | 2021-04-26 00:33 | PC.NURSE ---
ICU 12 still dirty. advised we would call back in 10-15 mins to reattempt to call report and transport pt to ICU.
--- NOTE | 2021-04-26 00:44 | PC.NURSE ---
report called to Mohini SCHERER
--- NOTE | 2021-04-26 00:49 | PC.NURSE ---
Mohini states ICU 12 is still being cleaned. advised I would call back in about 10 mins to see if room is clean.
[2021-04-26 03:02] LABS: Glucose Point of Care 57 mg/dL (70-110)
[2021-04-26 03:19] LABS: Basophils # 0.1 10^3/uL (0.0-0.1); Basophils % 0.8 %; Eosinophils # 0.5 10^3/uL (0.0-0.8); Eosinophils % 5.5 %; Hematocrit 36.6 % (42.0-52.0); Hemoglobin 10.8 g/dL (11.7-16.6); Lymphocytes # 1.2 10^3/uL (0.8-4.8); Lymphocytes % 13.3 %; Mean Corpuscular HGB Conc 29.5 g/dL (30.0-36.0); Mean Corpuscular Volume 98.1 fl (80-94); Mean Platelet Volume 10.7 fL (7.4-10.4); Monocytes # 0.7 10^3/uL (0.2-0.9); Monocytes % 7.4 %; Neutrophils # 6.28 10^3/uL (1.8-7.7); Neutrophils % 71.1 %; Nucleated Red Blood Cells % 0.3 %; Platelet Count 125 10^3/cmm (130-400); Red Blood Count 3.73 10^6/uL (4.1-5.3); Red Cell Distribution Width 15.4 % (12.1-15.1); White Blood Count 8.8 10^3/uL (4.0-10.0)
[2021-04-26] MEDS: heparin 5,000 unit/mL INJ 1 mL 5000 UNIT SUBCUT ×2 (03:24→13:37)
--- NOTE | 2021-04-26 03:31 | PC.NURSE ---
Patient has BIPAP order but refuses to wear BIPAP.
[2021-04-26 03:34] LABS: Alanine Aminotransferase 21 U/L (0-41); Albumin Level 3.6 g/dL (3.5-5.2); Alkaline Phosphatase 77 IU/L (40-130); Anion Gap 20.9 (5-19); Aspartate Amino Transferase 17 U/L (0-40); Blood Urea Nitrogen 67 mg/dL (6-20); Calcium 8.5 mg/dL (8.5-10.5); Carbon Dioxide 19 mmol/L (22-29); Chloride 101 mmol/L (98-107); Globulin 3.7 g/dL (1.3-4.6); Glomerular Filtration Rate 8.9 mL/min (90-130); Glucose 59 mg/dL (65-115); Magnesium 2.2 mg/dL (1.7-2.3); Osmolality Calculated 297 mOsm/kg (285-295); Potassium 5.9 mmol/L (3.5-5.1); Sodium 135 mmol/L (136-145); Total Bilirubin 0.3 mg/dL (0.15-1.2); Total Protein 7.3 g/dL (6.6-8.7)
[2021-04-26 03:38] LABS: Glucose Point of Care 58 mg/dL (70-110)
[2021-04-26] MEDS: dextrose 50% syringe 50 mL 25 ML IVP (03:42)
[2021-04-26 04:12] LABS: Glucose Point of Care 92 mg/dL (70-110)
--- NOTE | 2021-04-26 05:08 | PC.NURSE ---
Shift Note Frequent safety and comfort rounds continue. Pt was transferred from the ER at 0137. BS was low and dextrose was given (See MAR). Pt has been very lethargic and shaky throughout the night. Orders and nursing care completed as indicated. Patient monitored for response to intervention and treatment. Education provided includes hypoglycemic interventions and oxygen safety. Patient verbalize understanding but requires reinforcement.
[2021-04-26 05:57] LABS: Glucose Point of Care 80 mg/dL (70-110)
[2021-04-26 09:41] LABS: Glucose Point of Care 64 mg/dL (70-110)
--- NOTE | 2021-04-26 10:21 | PM.PN ---
Subjective Subjective: Interval history: Akil reports he feels okay. States he could not tolerate BiPAP. No chest pain or shortness of breath. Medications: Reviewed: Yes Vitals/I&O/Wt Last Vital Signs Temp 98.1 F 04/26/21 05:44 Pulse 79 04/26/21 08:36 Resp 20 H 04/26/21 08:36 BP 136/80 04/26/21 06:30 Pulse Ox 92 04/26/21 08:36 04/25/21 04/26/21 04/26/21 22:59 06:59 14:59 Intake Total 60 / 60 250 / 250 Output Total 0 / 0 Balance 60 / 60 0 / 60 250 / 250 Weight last 48 hrs Weight 143.018 kg Weight 143.471 kg Weight 142.882 kg Physical Exam Narrative: EXAM NARRATIVE: General exam no distress Neck is supple no lymphadenopathy or thyromegaly Cardiovascular regular rate and rhythm without murmur. Vascular access right chest Lungs clear but with diminished breath sounds bilaterally Abdomen soft, obese, nontender. No obvious organomegaly Extremities 1+ edema lower extremities. AV fistula left upper extremity with bruit. Diabetic foot ulcer left foot, plantar surface, lateral side without evidence of infection. No cyanosis or clubbing. Skin without rash Data : 04/26/21 03:10 04/26/21 03:10 A&P Assessment and plan (1) Acute hypotension: Received some fluid in the emergency department. This is now discontinued secondary to his end-stage renal disease on hemodialysis. No evidence currently of infectious source. Considering this has been going on for several days, with lower blood pressure and significant multiple medicines for hypertension including 1 recently added this could be medication effect. Blood pressure has improved Currently holding all antihypertensives and sedative medications as well as diuretics. Will need to review need for all medications prior to discharge. Status: Acute (2) Acute hyperkalemia: Received calcium gluconate, insulin and glucose yesterday. Dialysis was given yesterday Await nephrology recommendations today Status: Acute (3) ESRD on dialysis: See above Status: Acute (4) Chronic ulcer of left foot with fat layer exposed: No evidence of active infection Status: Acute (5) Diabetes mellitus type 2 in obese: Mild sliding scale insulin. Blood sugar slightly low this morning. Get rid of at bedtime component Status: Acute (6) CHF (congestive heart failure), NYHA class III: No evidence of acute exacerbation, last EF preserved Now primarily controlled with fluid removal with hemodialysis. Status: Acute Qualifiers: Congestive heart failure type: diastolic Congestive heart failure chronicity: chronic Qualified Code(s): I50.32 - Chronic diastolic (congestive) heart failure Additional A&P Information Sleep apnea. BiPAP while sleeping. He has refused. Multiple other medical problems as outlined in past medical history. Full code Heparin for DVT prophylaxis May transfer out of ICU. Attestations Medical Necessity Statement*: Needs continued hospitalization for further dialysis secondary to acute hyperkalemia Coding Level of Care Code Acute Perioperative Educator for g Fwd Diagnoses Acute hypotension I95.9 Acute hyperkalemia E87.5 ESRD on dialysis N18.6; Z99.2 Chronic ulcer of left foot with fat layer exposed L97.522 Diabetes mellitus type 2 in obese E11.69; E66.9 CHF (congestive heart failure), NYHA class III I50.32 Congestive heart failure type: diastolic Congestive heart failure chronicity: chronic
[2021-04-26 12:56] LABS: Glucose Point of Care 88 mg/dL (70-110)
[2021-04-26] MEDS: heparin, porcine 1,000 unit/mL INJ 10 mL HE (13:36)
--- NOTE | 2021-04-26 15:04 | P.PN_ITS ---
Subjective Subjective: Interval history: Bp looks better but he still feels dizzy. No other new issues. Dialysis was tolerated yesterday. No extremity edema or other hypervolemic symptoms Medications: Reviewed: Yes Vitals/I&O/Wt Last Vital Signs Temp 97.2 F L 04/26/21 12:38 Pulse 80 04/26/21 14:05 Resp 18 04/26/21 12:38 BP 157/90 04/26/21 14:05 Pulse Ox 87 L 04/26/21 14:05 04/26/21 04/26/21 04/26/21 06:59 14:59 22:59 Intake Total 250 / 250 Output Total 0 / 0 Balance 0 / 60 250 / 250 Weight last 48 hrs Weight 143.018 kg Weight 143.471 kg Weight 142.882 kg Physical Exam Narrative: EXAM NARRATIVE: Constitutional: Awake, comfortable HEENT: Wet mucosa, no jvp, non icteric Lungs: Bilaterally clear without discernible wheeze, rales in all lung zones CVS: S1 S2, no murmurs Abdo: Soft, BS ok Ext 4: Minimal edema, peripheral perfusion with no cyanosis Neurological: Grossly non-focal Data : 04/26/21 03:10 04/26/21 03:10 A&P Additional A&P Information 1. ESRD Dialysis again today to bring the K down to normal levels ok for dialysis tomorrow in outpatient clinic if discharged; if in house I will evaluate him for dialysis eeds Continue MWF schedule otherwise. He has been counseled about dialysis compliance. 2. Hyperkalemia To come down to normal after dialysis today 3. Hypertension Bp imporved, more stable this morning 4. Chronic ESRD issues To be dealt with in the outpatient clinic, continue home medications and binders etc. 5. Disposition Likely home in the morning if he is hemodynamically stable and potassium is controlled. - ok for DC home after dialysis today from my perspective John Peters MD Nephrology [phone] Patient seen and examined via telemedicine, with the assistance of the bedside RN > 25 min spent in evaluation and mgmt of patient Attestations Medical Necessity Statement*: eval for ESRD mgmt Coding Level of Care Code Acute Fire Safety Director for g Franklin
--- NOTE | 2021-04-26 15:53 | PC.NURSE ---
patient arrived on unit from ICU
--- NOTE | 2021-04-26 16:01 | PC.NURSE ---
Dialysis completed without incident. Dialysis nurse removed 1000 mL of fluid.
--- NOTE | 2021-04-26 16:01 | PC.NURSE ---
Transferred patient from ICU 12 to [facility] room 270. REport given to nurse ontiveros. Belongings sent with patient included cell phone, manager rn, keys, shirt, and shoes. transfer was uneventful.
[2021-04-26 17:10] LABS: Glucose Point of Care 71 mg/dL (70-110)
[2021-04-26 20:59] LABS: Glucose Point of Care 130 mg/dL (70-110)
[2021-04-26] MEDS: trazodone 50 mg Tablet PO (23:12)
[2021-04-27] VITALS (8 sets, daily range): BP systolic 113–179; BP diastolic 71–92; PULSE 84–91; RESP 17–20; TEMP 36.9–37.8; O2SAT 91–95
[2021-04-27] MEDS: heparin 5,000 unit/mL INJ 1 mL 5000 UNIT SUBCUT (01:17)
[2021-04-27 05:29] LABS: Basophils % 0.3 %; Eosinophils # 0.4 10^3/uL (0.0-0.8); Eosinophils % 5.4 %; Hematocrit 34.3 % (42.0-52.0); Hemoglobin 10.6 g/dL (11.7-16.6); Lymphocytes # 0.7 10^3/uL (0.8-4.8); Lymphocytes % 10.5 %; Mean Corpuscular HGB Conc 30.9 g/dL (30.0-36.0); Mean Corpuscular Hemoglobin 29.7 pg (28.0-34.0); Mean Corpuscular Volume 96.1 fl (80-94); Mean Platelet Volume 10.8 fL (7.4-10.4); Monocytes # 0.7 10^3/uL (0.2-0.9); Monocytes % 9.6 %; Neutrophils # 5.03 10^3/uL (1.8-7.7); Neutrophils % 73.5 %; Nucleated Red Blood Cells % 0.4 %; Platelet Count 109 10^3/cmm (130-400); Red Blood Count 3.57 10^6/uL (4.1-5.3); Red Cell Distribution Width 15.6 % (12.1-15.1); White Blood Count 6.9 10^3/uL (4.0-10.0)
[2021-04-27 05:44] LABS: Anion Gap 18.3 (5-19); Blood Urea Nitrogen 53 mg/dL (6-20); Calcium 7.9 mg/dL (8.5-10.5); Carbon Dioxide 23 mmol/L (22-29); Chloride 100 mmol/L (98-107); Glomerular Filtration Rate 10.4 mL/min (90-130); Glucose 105 mg/dL (65-115); Osmolality Calculated 297 mOsm/kg (285-295); Potassium 5.3 mmol/L (3.5-5.1); Sodium 136 mmol/L (136-145)
[2021-04-27] MEDS: aspirin 81 mg EC Tablet PO (05:49)
[2021-04-27 06:49] LABS: Glucose Point of Care 104 mg/dL (70-110)
--- NOTE | 2021-04-27 06:51 | PC.NURSE ---
AM NOTE PT RESTING COMFORTABLY IN BED STATES HE IS FEELING BETTER TODAY - DOES VOICE CONCERN REGARDING LEFT FA FISTULA - PT NOTED SOME PAIN AND EDEMA - SLIGHT REDNESS NOTED - ABLE TO FEEL THRILL AND HEAR BRUIT WITHOUT ISSUE - WILL MONITOR - INSTRUCTED PT TO REPORT TO DR - LEFT SIDHU NOTED TO HAVE SCATTERED AREAS OF SCABBING BLE WITH ROSCOE SKING NOTED
--- NOTE | 2021-04-27 10:40 | PC.CHAP ---
Pastoral Care Encounter/Spiritual Assessment Type of Contact [] Declined supply room clerk visit [] Patient/Family/Request visit [] Outpatient visit [] Follow-up visit [] Physician referral [] Code/Alert x[x] Routine visit [] Staff referral [] Actively dying [] Patient sleeping [] Family support [] [] Out of room [] Palliative care [] [] Receiving care in room [] Pre-surgical visit [] Trauma [] Long length of stay [] ICU visit [] Other: Relational/Emotional Strength [x] Patient feels connected with others/family/visitors/staff [] Distress [] Loneliness/isolation [] Abandonment Spirituality of Patient [x] Person of Lizabeth [] Attends Baptism of their Lizabeth [x] Believes in Prayer [] Reads Bible or Congregation materials [] There are Spiritual issues to be addressed Delivery Crew Worker Interventions [x] Prayer [x] Active listening [x] Non-anxious presence [] Spiritual/emotional support [] Crisis/trauma care [] Spiritual counseling [] Bereavement support [] Provided bereavement packet [] Provided Bible/devotional materials [] Provided toy/stuffed animal, coloring book to patient or family member [] Provided Communion [] Anointing/Baxley [] Salvation [x] Completed spiritual assessment [] Other: Impact on Illness or Injury [] Angry [] Fearful [] Anxious [] Often cries [] Exhaustion [] Unable to work [] Unable to attend scientologist [] Unable to walk/stand [] Unable to read [] Unable to drive [] Unable to eat/drink [] Unable to sleep [] Unable to be with family [] Patient intubated [] Other: Summary Time spent with patient 10 min
--- NOTE | 2021-04-27 11:34 | PM.PN ---
Subjective Subjective: Interval history: Seen on dialysis, tolerating the therapy well so far today. Dizziness is stable. Hemodynamics reviewed and remain stable Medications: Reviewed: Yes Vitals/I&O/Wt Last Vital Signs Temp 98.4 F 04/27/21 10:00 Pulse 88 04/27/21 10:00 Resp 18 04/27/21 10:00 BP 170/80 04/27/21 10:00 Pulse Ox 91 04/27/21 10:00 04/26/21 04/27/21 04/27/21 22:59 06:59 14:59 Intake Total 660 / 910 480 / 480 Output Total 2300 / 2300 200 / 2500 Balance -1640 / -1390 -200 / -1590 480 / 480 Weight last 48 hrs Weight 164.2 kg Weight 145.4 kg Weight 143.018 kg Weight 143.471 kg Physical Exam Narrative: EXAM NARRATIVE: Constitutional: Awake, comfortable HEENT: Wet mucosa, no jvp, non icteric Lungs: Bilaterally clear without discernible wheeze, rales in all lung zones CVS: S1 S2, no murmurs Abdo: Soft, BS ok Ext 4: Minimal edema, peripheral perfusion with no cyanosis Neurological: Grossly non-focal Data : 04/27/21 05:02 04/27/21 05:02 A&P Additional A&P Information 1. ESRD Seen on dialysis, 2K, UF 2-3L Continue MWF schedule otherwise. He has been counseled about dialysis compliance. 2. Hyperkalemia To come down to normal after dialysis today 3. Hypertension Bp improved, more stable this morning 4. Chronic ESRD issues To be dealt with in the outpatient clinic, continue home medications and binders etc. 5. Disposition OK for DC after dialysis today John Peters MD Nephrology [phone] Patient seen and examined via telemedicine, with the assistance of the bedside RN > 25 min spent in evaluation and mgmt of patient Attestations Medical Necessity Statement*: eval for ESRD Coding Level of Care Code Acute Technical Account Manager for Patricia Reid
[2021-04-27 12:27] LABS: Glucose Point of Care 104 mg/dL (70-110)
--- NOTE | 2021-04-27 13:36 | PM.DCS ---
Discharge Providers Date of Admission: 04/26/21 00:52 Date of Discharge: April 27, 2021 Attending Provider at Admission: Darren Vela MD Attending Provider at Discharge: Darren Vela MD Primary Care Provider: Sulma Wetzel MD Diagnoses at Discharge Discharge Diagnosis (1) Acute hypotension: Status: Acute (2) Acute hyperkalemia: Status: Acute (3) ESRD on dialysis: Status: Acute (4) Chronic ulcer of left foot with fat layer exposed: Status: Acute (5) Diabetes mellitus type 2 in obese: Status: Acute (6) CHF (congestive heart failure), NYHA class III: Status: Acute Qualifiers: Congestive heart failure chronicity: chronic Congestive heart failure type: diastolic Qualified Code(s): I50.32 - Chronic diastolic (congestive) heart failure Reason for Visit Reason for Visit: SOB, HYPOTENSION Hospital Course Hospital Course Akil presented to the hospital with dizziness, low blood pressure. He was found to be significantly hyperkalemic. He is last dialysis treatment had not been complete. Nephrology was consulted. He was dialyzed with significant improvement in his medical condition. Dialysis occurred each day, until discharge. At discharge she was saturating 91% on room air. Dizziness was back at its baseline level. Blood pressure was controlled. At discharge her multiple blood pressure medications were either discontinued or reduced secondary to his presentation with hypotension and hyperkalemia. I discussed with the patient that he would need close follow-up, to determine if medication needed added back in the future. I instructed him to use a 3 L of oxygen he was instructed to use with exertion and at night. He has not been compliant with this. 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 Physical Exam Narrative: EXAM NARRATIVE: General exam no distress Neck is supple Cardiovascular regular rate and rhythm Lungs clear Abdomen is soft Extremities trace edema. Discharge Data Data Completed and Pending: Completed Studies During Hospitalization Category Date Time Status XR chest 1V jonas ble [id number] Stat Exams 04/25/21 10:28 Completed Labs from last 24 hours 04/27/21 04/27/21 04/27/21 12:22 06:44 05:02 WBC RBC Hgb Hct MCV MCH MCHC RDW Plt Count MPV Neut % (Auto) Lymph % (Auto) [place] % (Auto) Eos % (Auto) Baso % (Auto) Neut # (Auto) Lymph # (Auto) [place] # (Auto) Eos # (Auto) Baso # (Auto) Nucleated RBC % (a uto) Nucleated RBCs # Sodium 136 Potassium 5.3 H Chloride 100 Carbon Dioxide 23 Anion Gap 18.3 BUN 53 H Creatinine 5.8 H* GFR Calculation 10.4 L Glucose 105 POC Glucose 104 104 Calculated Osmolal ity 297 H Calcium 7.9 L 04/27/21 04/26/21 04/26/21 05:02 20:32 17:02 WBC 6.9 RBC 3.57 L Hgb 10.6 L Hct 34.3 L MCV 96.1 H MCH 29.7 MCHC 30.9 RDW 15.6 H Plt Count 109 L MPV 10.8 H Neut % (Auto) 73.5 Lymph % (Auto) 10.5 [place] % (Auto) 9.6 Eos % (Auto) 5.4 Baso % (Auto) 0.3 Neut # (Auto) 5.03 Lymph # (Auto) 0.7 L [place] # (Auto) 0.7 Eos # (Auto) 0.4 Baso # (Auto) 0.0 Nucleated RBC % (a uto) 0.4 Nucleated RBCs # 0.0 Sodium Potassium Chloride Carbon Dioxide Anion Gap BUN Creatinine GFR Calculation Glucose POC Glucose 130 H 71 Calculated Osmolal ity Calcium Vitals: Last Vital Signs Temp 98.8 F 04/27/21 11:36 Pulse 90 04/27/21 11:36 Resp 18 04/27/21 11:36 BP 113/71 04/27/21 11:36 Pulse Ox 91 04/27/21 10:00 Discharge Plan Discharge Patient Disposition: Home Health Service Condition: Stable Prescriptions: Continued (DME) Lower Cam Boot to the left See Rx Instructions .Route .MEDSUPPLY Qty: 1 RF: 0 Lantus U-100 Insulin 100 unit/mL solution 40 unit SUBCUT QAM RF: 0 aspirin 81 mg Tablet,Delayed Release (Dr/Ec) 81 mg PO QAM RF: 0 isosorbide mononitrate 120 mg Tablet Extended Release 24 Hr 120 mg PO DAILY RF: 0 acetaminophen [Tylenol] 325 mg Tablet 975 mg PO BID RF: 0 sodium bicarbonate 650 mg tablet 650 mg PO BID RF: 0 sevelamer carbonate 800 mg tablet See Rx Instructions .ROUTE .COMPLEX RF: 0 albuterol sulfate 90 mcg/actuation HFA aerosol inhaler 2 inh inhalation Q6H PRN (Reason: shortness of breath or wheezing) Qty: 8.5 RF: 0 trazodone 50 mg Tablet 50 mg PO BEDTIME PRN (Reason: Sleep) RF: 0 venlafaxine 75 mg capsule,extended release 24hr 75 mg PO DAILY RF: 0 Novolog U-100 Insulin aspart 100 unit/mL Solution 10 - 15 unit SUBCUT TID PRN (Reason: SEE PHARMACY COMMENTS) RF: 0 RenaPlex-D 800 mcg-12.5 mg -2,000 unit tablet 1 tab PO DAILY RF: 0 carvedilol 25 mg tablet 25 mg PO BID RF: 0 Stool Softener 100 mg Capsule 100 mg PO DAILY RF: 0 Changed atorvastatin 80 mg tablet 40 mg PO DAILY Qty: 0 RF: 0 Discontinued bumetanide 2 mg tablet 2 mg PO BID RF: 0 citalopram 20 mg tablet 20 mg PO DAILY PRN (Reason: MOODS) RF: 0 amlodipine 10 mg tablet 10 mg PO DAILY RF: 0 gabapentin 300 mg capsule 300 mg PO QID RF: 0 losartan 50 mg tablet 50 mg PO QAM RF: 0 clonidine HCl 0.2 mg tablet 0.2 mg PO BID RF: 0 hydralazine 100 mg tablet 100 mg PO BID RF: 0 hydroxyzine pamoate 25 mg capsule 25 mg PO BEDTIME PRN (Reason: UNKNOWN) RF: 0 bupropion HCl 150 mg tablet extended release 24 hr See Rx Instructions .ROUTE .COMPLEX RF: 0 metolazone 5 mg tablet 5 mg PO DAILY RF: 0 Discharge Orders: Discharge Order (Routine); Ordered 04/27/21 Ordered By: Darren Vela Referrals: Sulma Wetzel MD [Primary Care Provider] - 4-7 days Discharge Diet: Usual diet Discharge Activity: Increase activity as tolerated Patient Instructions: Opioid Safety Activity Restrictions/Additional Instructions: Nephrology follow-up as soon as possible. Keep regular dialysis appointments. Resume renal diet, monitor fluids Keep track of your blood pressure and report to your primary care provider or laminated plastics assembler and gluer. Note that your medications have changed significantly secondary to hypotension on presentation. Some may need to be added back with time. Discharge Attestations Time Spent in Discharge Care*: greater than 30 min Status at Discharge: Cognitive status at discharge: cognitively intact, Behavioral status at discharge: cooperative, Quality Metrics Clinical Quality Measures During this hospital stay, did patient experience: None Coding Level of Care Code Acute Chg FW DC note Diagnoses Acute hypotension I95.9 Acute hyperkalemia E87.5 ESRD on dialysis N18.6; Z99.2 Chronic ulcer of left foot with fat layer exposed L97.522 Diabetes mellitus type 2 in obese E11.69; E66.9 CHF (congestive heart failure), NYHA class III I50.32 Congestive heart failure chronicity: chronic Congestive heart failure type: diastolic
[2021-04-27] MEDS: amlodipine 5 mg Tablet PO (14:52)
--- NOTE | 2021-04-27 14:55 | PC.NURSE ---
CAM BOOT DISCUSSED WITH PT - PT REFUSES TO WEAR CAM BOOT - SISTER AT SIDE
--- NOTE | 2021-04-27 15:00 | PC.NURSE ---
DIALYSIS PER DIALYSIS NURSE - 1.9L OFF - BP 185/100 MANUALLY - REPORTED TO DR [place] KENDALL - KELLY'S REC'D - SISTER AT SIDE - REEVALUATE BP PRIOR TO DISCHARGE
--- NOTE | 2021-04-27 15:26 | PC.NURSE ---
Addendum entered by Deysi Mabry RN 04/27/21 15:34: EDUCATED BOTH PT AND SISTER OF NEED FOR OXYGEN ROUND THE CLOCK WELL CAM BOOT - PT ADAMANTLY REFUSED BOTH Original Note: DISCHARGE INSTRUCTIONS DISCHARGE INSTRUCTIONS GIVEN TO BOTH PT AND SISTER WHO IS AT SIDE - MANUAL BP AT 180/84 - REVIEWED MEDICATION CHANGES WITH BOTH PT AND SISTER
--- NOTE | 2021-04-27 15:29 | PC.NURSE ---
This RN confirms care and documentation was performed by student nurse.
--- NOTE | 2021-04-27 15:31 | PC.RESP ---
sent pulmonary rehab information
--- NOTE | 2021-04-29 11:33 | PC.SOCIAL ---
phone calls made yesterday and today for patient discharge follow up call, no answer, message left.
== END 2021-04-27 15:35 | disposition home or self-care (01) | DRG 312 ==
LOC: ER 16:39 → ICU 04-26 00:52 → MEDSURG 04-26 15:43
PROVIDERS: Admitting Provider Internal Medicine; Emergency Provider Family Medicine; PCP Internal Medicine; Visit Provider Internal Medicine
DX: I95.2 Hypotension due to drugs (principal); N18.6 End stage renal disease; I13.2 Hypertensive heart and chronic kidney disease with heart failure and with stage 5 chronic kidney disease, or end stage renal disease; I50.32 Chronic diastolic (congestive) heart failure; E66.2 Morbid (severe) obesity with alveolar hypoventilation; Z68.42 Body mass index [BMI] 45.0-49.9, adult; T50.915A Adverse effect of multiple unspecified drugs, medicaments and biological substances, initial encounter; E11.22 Type 2 diabetes mellitus with diabetic chronic kidney disease; Z99.2 Dependence on renal dialysis; Z86.74 Personal history of sudden cardiac arrest; J44.9 Chronic obstructive pulmonary disease, unspecified; Z85.528 Personal history of other malignant neoplasm of kidney; E11.42 Type 2 diabetes mellitus with diabetic polyneuropathy; E11.621 Type 2 diabetes mellitus with foot ulcer; L97.522 Non-pressure chronic ulcer of other part of left foot with fat layer exposed; E87.5 Hyperkalemia
CPT/HCPCS: 36415; 36416; 71045; 80048; 80053; 81001; 82533; 82550; 82962; 83735; 84484; 85025; 90935; 93005; 94664; 96365; 96372; 96375; 99285; J0610; J1644; J1815; Q3014

== ENCOUNTER 2021-05-02 08:37 | Outpatient (CLI) | payer MEDICARE, MEDICAID, SELFPAY | END 2021-05-02 08:38 | disposition home or self-care (01) | LOC: WOUND 08:38 | PROVIDERS: PCP Internal Medicine; Visit Provider Emergency Medicine | DX: E11.621 Type 2 diabetes mellitus with foot ulcer (principal); L97.522 Non-pressure chronic ulcer of other part of left foot with fat layer exposed | CPT/HCPCS: 11042 ==

== ENCOUNTER 2021-05-09 08:10 | Outpatient (CLI) | payer MEDICARE, MEDICAID, SELFPAY | END 2021-05-09 08:11 | disposition home or self-care (01) | LOC: WOUND 08:12 | PROVIDERS: PCP Internal Medicine; Visit Provider Emergency Medicine | DX: E11.621 Type 2 diabetes mellitus with foot ulcer (principal); L97.522 Non-pressure chronic ulcer of other part of left foot with fat layer exposed | CPT/HCPCS: 11042; 99212 ==

== ENCOUNTER 2021-05-16 08:26 | Outpatient (CLI) | payer MEDICARE, MEDICAID, SELFPAY | END 2021-05-16 08:27 | disposition home or self-care (01) | LOC: WOUND 08:29 | PROVIDERS: PCP Internal Medicine; Visit Provider Emergency Medicine | DX: E11.621 Type 2 diabetes mellitus with foot ulcer (principal); L97.522 Non-pressure chronic ulcer of other part of left foot with fat layer exposed | CPT/HCPCS: 11042 ==

== ENCOUNTER 2021-05-23 08:18 | Outpatient (CLI) | payer MEDICARE, MEDICAID, SELFPAY | END 2021-05-23 08:19 | disposition home or self-care (01) | LOC: WOUND 08:29 | PROVIDERS: PCP Internal Medicine; Visit Provider Nurse Practitioner Family | DX: E11.621 Type 2 diabetes mellitus with foot ulcer (principal); L97.521 Non-pressure chronic ulcer of other part of left foot limited to breakdown of skin | CPT/HCPCS: 11042 ==

== ENCOUNTER 2021-05-30 08:24 | Outpatient (CLI) | payer MEDICARE, MEDICAID, SELFPAY ==
--- NOTE | 2021-05-30 08:41 | NM_ITS ---
WS: [id number] NUCLEAR MEDICINE BONE SCAN 3 PHASE Radiopharmaceutical: 24.3 Tc-99m MDP mCi IV Postinjection imaging delay: 2 hr CLINICAL INFORMATION: DM TYPE II W/FOOT ULCER COMPARISON: Radiographs 2020 FINDINGS: Increased blood flow, blood pool and delayed bony uptake at the base of the fifth metatarsa l and likely involving the cuboid. Findings are suspicious for osteomyelitis. Bone lesions: There are no osseous lesions suspicious for metastatic disease. Soft tissue contours: Normal. Kidneys: Normal. Other findings: Degenerative type uptake both AC joints. NM/NM bone 3 phase [id number] IMPRESSION: Increased blood flow, blood pool, delayed uptake at the base of the fifth metat arsal and cuboid suspicious for osteomyelitis
== END 2021-05-30 08:25 | disposition home or self-care (01) ==
PROVIDERS: PCP Internal Medicine; Visit Provider Emergency Medicine
DX: E11.621 Type 2 diabetes mellitus with foot ulcer (principal)
CPT/HCPCS: 78315; A9561

== ENCOUNTER 2021-06-02 08:23 | Outpatient (CLI) | payer MEDICARE, MEDICAID, SELFPAY | END 2021-06-02 08:24 | disposition home or self-care (01) | LOC: WOUND 08:24 | PROVIDERS: PCP Internal Medicine; Visit Provider Nurse Practitioner Family | DX: E11.621 Type 2 diabetes mellitus with foot ulcer (principal); L97.522 Non-pressure chronic ulcer of other part of left foot with fat layer exposed | CPT/HCPCS: 11042 ==

== ENCOUNTER 2021-06-02 12:48 | Outpatient (CLI) | payer MEDICARE, MEDICAID, SELFPAY ==
--- NOTE | 2021-06-02 13:03 | ECG_ITS ---
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 Measurements Intervals [place] Rate: 78 P: 29 NV: 196 QRS: 107 QRSD: 107 T: 1 QT: 398 QTc: 455 Interpretive Statements SINUS RHYTHM RIGHT AXIS DEVIATION [QRS AXIS > 100] PATTERN CONSISTENT WITH PULMONARY DISEASE Compared to ECG 04/25/2021 16:10:05 Right-axis deviation now present First degree AV block no longer present Atrial abnormality no longer present Electronically Signed On 06-02-2021 17:13:40 CDT by Erik Arguelles M.D. [id number]
--- NOTE | 2021-06-02 13:06 | XR_ITS ---
WS: [id number] Chest 2 views, 06/02/2021 Clinical Data: SCREENING FOR RESPIRATORY DISORDERS Comparison: Portable chest, 04/25/2021. Findings: No nodules, masses or effusions are seen. The heart is enlarged. The pulmonary vascularity is not increased. No pneumonia or pneumothorax is seen. XR/XR chest 2V* [id number] Impression: Cardiomegaly.
[2021-06-02 13:45] LABS: Basophils # 0.1 10^3/uL (0.0-0.1); Eosinophils # 0.9 10^3/uL (0.0-0.8); Eosinophils % 14.2 %; Hematocrit 33.5 % (42.0-52.0); Hemoglobin 10.4 g/dL (11.7-16.6); Lymphocytes % 15.3 %; Mean Corpuscular Volume 93.3 fl (80-94); Mean Platelet Volume 10.2 fL (7.4-10.4); Monocytes # 0.6 10^3/uL (0.2-0.9); Neutrophils # 3.72 10^3/uL (1.8-7.7); Neutrophils % 59.2 %; Nucleated Red Blood Cells % 0 %; Platelet Count 167 10^3/cmm (130-400); Red Blood Count 3.59 10^6/uL (4.1-5.3); Red Cell Distribution Width 15.4 % (12.1-15.1); White Blood Count 6.3 10^3/uL (4.0-10.0)
[2021-06-02 14:05] LABS: Alanine Aminotransferase 23 U/L (0-41); Albumin Level 3.8 g/dL (3.5-5.2); Alkaline Phosphatase 125 IU/L (40-130); Anion Gap 18.6 (5-19); Aspartate Amino Transferase 21 U/L (0-40); Blood Urea Nitrogen 62 mg/dL (6-20); C Reactive Protein 21.1 mg/L (0.0-4.9); Calcium 8.7 mg/dL (8.5-10.5); Carbon Dioxide 27 mmol/L (22-29); Chloride 102 mmol/L (98-107); Globulin 3.4 g/dL (1.3-4.6); Glomerular Filtration Rate 14.6 mL/min (90-130); Glucose 137 mg/dL (65-115); Osmolality Calculated 314 mOsm/kg (285-295); Potassium 5.6 mmol/L (3.5-5.1); Sodium 142 mmol/L (136-145); Total Bilirubin 0.3 mg/dL (0.15-1.2); Total Protein 7.2 g/dL (6.6-8.7)
[2021-06-02 14:07] LABS: Estmated Average Glucose 134; Hemoglobin A1C 6.3 % (4.0-6.0)
[2021-06-02 15:04] LABS: Prealbumin 16.5 mg/dL (20-40)
[2021-06-03 14:46] LABS: Erythrocyte Sedimentation Rate 68 mm/hr (0-10)
== END 2021-06-02 12:49 | disposition home or self-care (01) ==
PROVIDERS: PCP Internal Medicine; Visit Provider Nurse Practitioner Family
DX: Z13.6 Encounter for screening for cardiovascular disorders (principal); Z13.83 Encounter for screening for respiratory disorder NEC; E11.621 Type 2 diabetes mellitus with foot ulcer; I51.7 Cardiomegaly
CPT/HCPCS: 71046; 80053; 83036; 84134; 85025; 85651; 86140; 93005

== ENCOUNTER 2021-06-09 08:15 | Outpatient (CLI) | payer MEDICARE, MEDICAID, SELFPAY | END 2021-06-09 08:16 | disposition home or self-care (01) | LOC: WOUND 08:16 | PROVIDERS: PCP Internal Medicine; Visit Provider Emergency Medicine | DX: E11.621 Type 2 diabetes mellitus with foot ulcer (principal); L97.522 Non-pressure chronic ulcer of other part of left foot with fat layer exposed; I73.9 Peripheral vascular disease, unspecified | CPT/HCPCS: 11042 ==

== ENCOUNTER → 2021-06-10 08:07 | Outpatient (BNVA) | payer MEDICARE, MEDICAID, SELFPAY | PROVIDERS: PCP Internal Medicine; Referring Provider Thoracic Surgery (Cardiothoracic Vascular Surgery); Visit Provider Internal Medicine | DX: E11.649 Type 2 diabetes mellitus with hypoglycemia without coma (principal); E11.319 Type 2 diabetes mellitus with unspecified diabetic retinopathy without macular edema; L97.512 Non-pressure chronic ulcer of other part of right foot with fat layer exposed; N18.6 End stage renal disease; E66.9 Obesity, unspecified; Z99.2 Dependence on renal dialysis; Z79.4 Long term (current) use of insulin; Z86.79 Personal history of other diseases of the circulatory system; Z68.41 Body mass index [BMI] 40.0-44.9, adult | CPT/HCPCS: 99204 ==

== ENCOUNTER 2021-06-13 08:16 | Outpatient (CLI) | payer MEDICARE, MEDICAID, SELFPAY | END 2021-06-13 08:17 | disposition home or self-care (01) | LOC: WOUND 08:17 | PROVIDERS: PCP Internal Medicine; Visit Provider Emergency Medicine | DX: E11.621 Type 2 diabetes mellitus with foot ulcer (principal); L97.522 Non-pressure chronic ulcer of other part of left foot with fat layer exposed; I10 Essential (primary) hypertension; I73.9 Peripheral vascular disease, unspecified; J44.9 Chronic obstructive pulmonary disease, unspecified | CPT/HCPCS: G0277 ==

== ENCOUNTER 2021-06-16 10:18 | Outpatient (CLI) | payer MEDICARE, MEDICAID, SELFPAY | END 2021-06-16 10:19 | disposition home or self-care (01) | LOC: WOUND 10:19 | PROVIDERS: PCP Internal Medicine; Visit Provider Nurse Practitioner Family | DX: E11.621 Type 2 diabetes mellitus with foot ulcer (principal); L97.521 Non-pressure chronic ulcer of other part of left foot limited to breakdown of skin; E66.9 Obesity, unspecified; J44.9 Chronic obstructive pulmonary disease, unspecified; I73.9 Peripheral vascular disease, unspecified; Z68.41 Body mass index [BMI] 40.0-44.9, adult; I10 Essential (primary) hypertension | CPT/HCPCS: 11042 ==

== ENCOUNTER 2021-06-20 08:06 | Outpatient (CLI) | payer MEDICARE, MEDICAID, SELFPAY | END 2021-06-20 08:07 | disposition home or self-care (01) | LOC: WOUND 08:06 | PROVIDERS: PCP Internal Medicine; Visit Provider Emergency Medicine | DX: E11.621 Type 2 diabetes mellitus with foot ulcer (principal); L97.526 Non-pressure chronic ulcer of other part of left foot with bone involvement without evidence of necrosis; M86.9 Osteomyelitis, unspecified | CPT/HCPCS: 99183; G0277 ==

== ENCOUNTER 2021-06-21 08:09 | Outpatient (CLI) | payer MEDICARE, MEDICAID, SELFPAY | END 2021-06-21 08:10 | disposition home or self-care (01) | LOC: WOUND 08:10 | PROVIDERS: PCP Internal Medicine; Visit Provider Nurse Practitioner Family | DX: E11.621 Type 2 diabetes mellitus with foot ulcer (principal); L97.526 Non-pressure chronic ulcer of other part of left foot with bone involvement without evidence of necrosis; M86.9 Osteomyelitis, unspecified | CPT/HCPCS: G0277 ==

== ENCOUNTER 2021-06-28 08:15 | Outpatient (CLI) | payer MEDICARE, MEDICAID, SELFPAY | END 2021-06-28 08:16 | disposition home or self-care (01) | LOC: WOUND 08:16 | PROVIDERS: PCP Internal Medicine; Visit Provider Nurse Practitioner Family | DX: E11.621 Type 2 diabetes mellitus with foot ulcer (principal); L97.516 Non-pressure chronic ulcer of other part of right foot with bone involvement without evidence of necrosis; M86.9 Osteomyelitis, unspecified | CPT/HCPCS: G0277 ==

== ENCOUNTER 2021-06-30 10:36 | Outpatient (CLI) | payer MEDICARE, MEDICAID, SELFPAY | END 2021-06-30 10:37 | disposition home or self-care (01) | LOC: WOUND 10:37 | PROVIDERS: PCP Internal Medicine; Visit Provider Emergency Medicine | DX: I96 Gangrene, not elsewhere classified (principal); E11.621 Type 2 diabetes mellitus with foot ulcer; L97.522 Non-pressure chronic ulcer of other part of left foot with fat layer exposed | CPT/HCPCS: 11042; 99212 ==

== ENCOUNTER 2021-07-04 08:22 | Outpatient (CLI) | payer MEDICARE, MEDICAID, SELFPAY | END 2021-07-04 08:23 | disposition home or self-care (01) | LOC: WOUND 08:23 | PROVIDERS: PCP Internal Medicine; Visit Provider Emergency Medicine | DX: E11.621 Type 2 diabetes mellitus with foot ulcer (principal); L97.526 Non-pressure chronic ulcer of other part of left foot with bone involvement without evidence of necrosis; M86.9 Osteomyelitis, unspecified | CPT/HCPCS: G0277 ==

== ENCOUNTER 2021-07-05 08:24 | Outpatient (CLI) | payer MEDICARE, MEDICAID, SELFPAY | END 2021-07-05 08:25 | disposition home or self-care (01) | LOC: WOUND 08:25 | PROVIDERS: PCP Internal Medicine; Visit Provider Thoracic Surgery (Cardiothoracic Vascular Surgery) | DX: E11.621 Type 2 diabetes mellitus with foot ulcer (principal); L97.526 Non-pressure chronic ulcer of other part of left foot with bone involvement without evidence of necrosis; M86.9 Osteomyelitis, unspecified | CPT/HCPCS: 99183; G0277 ==

== ENCOUNTER 2021-07-06 08:19 | Outpatient (CLI) | payer MEDICARE, MEDICAID, SELFPAY | END 2021-07-06 08:20 | disposition home or self-care (01) | LOC: WOUND 08:21 | PROVIDERS: PCP Internal Medicine; Visit Provider Thoracic Surgery (Cardiothoracic Vascular Surgery) | DX: E11.621 Type 2 diabetes mellitus with foot ulcer (principal); L97.526 Non-pressure chronic ulcer of other part of left foot with bone involvement without evidence of necrosis; M86.9 Osteomyelitis, unspecified; L97.522 Non-pressure chronic ulcer of other part of left foot with fat layer exposed | CPT/HCPCS: 11042; G0277 ==

== ENCOUNTER 2021-07-07 08:17 | Outpatient (CLI) | payer MEDICARE, MEDICAID, SELFPAY | END 2021-07-07 08:18 | disposition home or self-care (01) | LOC: WOUND 08:18 | PROVIDERS: PCP Internal Medicine; Visit Provider Emergency Medicine | DX: E11.621 Type 2 diabetes mellitus with foot ulcer (principal); L97.522 Non-pressure chronic ulcer of other part of left foot with fat layer exposed | CPT/HCPCS: 11042 ==

== ENCOUNTER 2021-07-08 08:02 | Outpatient (CLI) | payer MEDICARE, MEDICAID, SELFPAY | END 2021-07-08 08:03 | disposition home or self-care (01) | LOC: WOUND 08:04 | PROVIDERS: PCP Internal Medicine; Visit Provider Nurse Practitioner Family | DX: E11.621 Type 2 diabetes mellitus with foot ulcer (principal); L97.526 Non-pressure chronic ulcer of other part of left foot with bone involvement without evidence of necrosis; M86.9 Osteomyelitis, unspecified | CPT/HCPCS: G0277 ==

== ENCOUNTER 2021-07-11 08:16 | Outpatient (CLI) | payer MEDICARE, MEDICAID, SELFPAY | END 2021-07-11 08:17 | disposition home or self-care (01) | LOC: WOUND 08:17 | PROVIDERS: PCP Internal Medicine; Visit Provider Emergency Medicine | DX: E11.621 Type 2 diabetes mellitus with foot ulcer (principal); L97.526 Non-pressure chronic ulcer of other part of left foot with bone involvement without evidence of necrosis; M86.9 Osteomyelitis, unspecified | CPT/HCPCS: G0277 ==

== ENCOUNTER 2021-07-12 08:18 | Outpatient (CLI) | payer MEDICARE, MEDICAID, SELFPAY | END 2021-07-12 08:19 | disposition home or self-care (01) | LOC: WOUND 08:20 | PROVIDERS: PCP Internal Medicine; Visit Provider Thoracic Surgery (Cardiothoracic Vascular Surgery) | DX: E11.621 Type 2 diabetes mellitus with foot ulcer (principal); L97.526 Non-pressure chronic ulcer of other part of left foot with bone involvement without evidence of necrosis; M86.671 Other chronic osteomyelitis, right ankle and foot | CPT/HCPCS: G0277 ==

== ENCOUNTER 2021-07-21 13:49 | Outpatient (CLI) | payer MEDICARE, MEDICAID, SELFPAY | END 2021-07-21 13:50 | disposition home or self-care (01) | LOC: WOUND 13:51 | PROVIDERS: PCP Internal Medicine; Visit Provider Nurse Practitioner Family | DX: I96 Gangrene, not elsewhere classified (principal); E11.621 Type 2 diabetes mellitus with foot ulcer; L97.522 Non-pressure chronic ulcer of other part of left foot with fat layer exposed | CPT/HCPCS: 11042 ==

== ENCOUNTER 2021-07-23 12:43 | Observation (INO) | payer MEDICARE, MEDICAID, SELFPAY ==
[2021-07-23] VITALS (7 sets, daily range): BP systolic 158–168; BP diastolic 76–87; PULSE 70–96; RESP 18–20; TEMP 36.6–36.9; O2SAT 92–96
--- NOTE | 2021-07-23 13:00 | W.ED.SOB ---
HPI - SOB/Dyspnea General: Chief Complaint: Shortness of Breath/Dyspnea Stated Complaint: RETAINING FLUID ON DIALYSIS Time Seen by Provider: 07/23/21 13:00 History of Present Illness: HPI Narrative: Mr. Velasco is a 51-year-old gentleman with complex past medical history including hypertension, hyperlipidemia, diabetes, end-stage renal disease on dialysis Sunday, diastolic heart failure who presents to the emergency department due to shortness of breath and volume overload. He reports compliance with his medication regimen and dialysis regimen. He has not missed any recent dialysis treatments. He does think that he has been under diuresed over the past week. Yesterday he feels that the run that they completed was rushed and he did not get through it all. Starting yesterday he had gradual onset of shortness of breath. Symptom intensity is moderate and worse with exertion. No associated infectious symptoms including fever or cough. In addition he has noticed lower extremity fullness and swelling. Overall the course of symptoms has been worsening. No other significant change in health, exacerbating, or alleviating factors identified. Review of Systems General: Reports: 10 or more systems reviewed and unremarkable except in HPI and below PFSH ED PFSH: Medical History Accelerated hypertension Acute on chronic diastolic (congestive) heart failure Acute respiratory failure with hypoxia Acute respiratory failure with hypoxia and hypercapnia Grjop-eu-rzakblo kidney injury Anasarca Anemia Anemia ARDS (adult respiratory distress syndrome) Cancer Cardiac arrest Cataract (lens) fragments in eye following cataract surgery, bilateral CHF (congestive heart failure), NYHA class III Chronic kidney disease Chronic kidney disease, stage IV (severe) Chronic respiratory failure with hypoxia and hypercapnia CKD stage 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 Congestive cardiac failure COPD (chronic obstructive pulmonary disease) Diabetes Diabetes Elevated troponin End stage renal disease on dialysis Fracture of fifth metatarsal bone of left foot Fracture of fourth metatarsal bone of left foot Heart failure Hypertension Hypertension Laceration Metabolic alkalosis Morbid obesity with BMI of 40.0-44.9, adult Neuropathy Obesity hypoventilation syndrome Obstructive sleep apnea Pneumonia due to 2018-nCo PVD (peripheral vascular disease) Renal cell carcinoma History bilateral renal cell carcinoma 2007 then recurrence on the contralateral side 2011. No recurrence for long-term follow-up with some suspicion on CT scan April 2020. Respiratory failure with hypoxia and hypercapnia Restrictive lung disease Sinus bradycardia Syncope Type 2 diabetes mellitus with diabetic polyneuropathy Urinary retention Surgical History H/O partial nephrectomy bilateral H/O wisdom tooth extraction Hx of lymph node excision Family History Father , AT AGE 65 Diabetes Cancer Metastatic prostate cancer to liver Mother , AT AGE 72 Diabetes Grandfather Diabetes Cancer Other Hyperlipidemia Social History (Updated 07/23/21 @ 18:52 by Frederick Barclay MD) Smoking and tobacco status: never smoked Second hand smoke exposure: Yes Smoking risk assessment/counseling performed?: Yes Alcohol intake: current Alcohol intake frequency: holidays/special occasions only Lives independently: Yes Household members: spouse Housing: House Marital status: service: No Current occupational status: retired Pets and animals: Yes History of recent travel: No Current gender identity: Male Physical Exam Narrative: EXAM NARRATIVE: GENERAL/CONSTITUTIONAL - chronically ill-appearing. Obese Eyes -no scleral icterus, no conjunctival injection ENMT - Atraumatic external nose and ears. NECK - supple. trachea midline CARDIOVASCULAR - regular rate and rhythm. Normal peripheral perfusion. Chronic skin changes noted bilateral lower extremities. 2+ pitting edema bilateral lower extremities to knees RESPIRATORY -clear to auscultation bilaterally. No retractions or accessory muscle use. ABDOMEN/GI - Nontender/Nondistended. No tenderness to percussion or evidence of peritonitis MSK - Extremities without obvious deformity. Bilateral lower extremity wounds followed by wound care SKIN - Warm, Dry NEURO - alert and appropriately oriented. Moves all extremities equally. Course ED course: - Patient was seen and evaluated by me at bedside - Patient placed on cardiac monitors, IV access obtained - Initial evaluation notable for exam as above. Patient believes dry weight is 140 kg, approximately 147 kg after dialysis yesterday - Labs notable for no leukocytosis, near baseline macrocytic anemia likely secondary to underlying CKD. Metabolic panel with hyperkalemia. Delta troponin is elevated with significant elevation in BNP. - Discussed elevated troponin with cardiology, after discussion we both agree that this is likely secondary to volume overload and cardiac stress related to this as opposed to acute [place] especially in the context of no chest pain or other typical cardiac features. - Imaging notable for cardiomegaly. Pulmonary nodule of unclear etiology with nonemergent CT recommended. - Upon serial reexamination after treatment the patient was similar - Based on patient history, evaluation, labs, and imaging as interpreted the most likely cause of the patient's condition is volume overload - Nephrology consulted, patient to be admitted for dialysis secondary to volume overload given the severe nature of symptoms, hyperkalemia, and hypoxemia. - The results of ED evaluation were discussed with the patient including plan for admission due to requirement for level of care not available if discharged to prevent significant worsening/deterioration. -Hospitalist service contacted and agreed admit the patient. - Patient was admitted without further deterioration or significant events. Vital Signs: Vital signs: Vital Signs Temperature 98.6 F 07/24/21 11:51 Pulse Rate 79 07/24/21 11:51 Respiratory Rate 17 07/24/21 11:51 Blood Pressure 166/76 07/24/21 11:51 Pulse Oximetry 90 07/24/21 11:51 MDM - SOB/Dyspnea Medical Records: Attestation: I reviewed the patient's medical records. Lab Data: Attestation: I reviewed the patient's lab results. Labs: Lab Results 07/23/21 07/23/21 07/23/21 13:28 13:31 13:31 WBC 8.8 10^3/uL 10^3/ uL (4.0-10.0) RBC 3.29 10^6/uL L 10 ^6/uL (4.1-5.3) Hgb 9.8 g/dL L g/dL (11.7-16.6) Hct 31.9 % L % (42.0-52.0) MCV 97.0 fl H fl (80-94) MCH 29.8 pg pg (28.0-34.0) MCHC 30.7 g/dL g/dL (30.0-36.0) RDW 20.8 % H % (12.1-15.1) Plt Count 149 10^3/cmm 10^3 /cmm (130-400) MPV 11.4 fL H fL (7.4-10.4) Neut % (Auto) 72.4 % % Lymph % (Auto) 9.4 % % [place] % (Auto) 11.5 % % Eos % (Auto) 4.6 % % Baso % (Auto) 0.7 % % Neut # (Auto) 6.40 10^3/uL 10^3 /uL (1.8-7.7) Lymph # (Auto) 0.8 10^3/uL 10^3/ uL (0.8-4.8) [place] # (Auto) 1.0 10^3/uL H 10^ 3/uL (0.2-0.9) Eos # (Auto) 0.4 10^3/uL 10^3/ uL (0.0-0.8) Baso # (Auto) 0.1 10^3/uL 10^3/ uL (0.0-0.1) Nucleated RBC % (a uto) 0.3 % % Nucleated RBCs # 0.0 /100WBC /100W BC Specimen Type Arterial Sample Site Radial, right ABG pH 7.36 (7.35-7.45) ABG pCO2 43.2 mmHg mmHg (35-45) ABG pO2 58.6 mmHg L mmHg (80.0-100.0) ABG HCO3 24.6 mmol/L mmol/ L (22-26) ABG Base Excess -0.9 mmol/L mmol/ L (-2.0-2.0) Jesus Test Pos Hematocrit 30.8 % L % (42-52) O2 Delivery Device Room air Deckhand Sponge Boat ID Anonymous Sodium 136 mmol/L mmol/L (136-145) Potassium 5.8 mmol/L H mmol /L (3.5-5.1) Chloride 98 mmol/L mmol/L (98-107) Carbon Dioxide 21 mmol/L L mmol/ L (22-29) Anion Gap 22.8 H (5-19) BUN 64 mg/dL H mg/dL (6-20) Creatinine 4.8 mg/dL H mg/dL (0.7-1.2) GFR Calculation 12.9 mL/min L mL/ min (90-130) Glucose 236 mg/dL H mg/dL (65-115) Calculated Osmolal ity 308 mOsm/kg H mOs m/kg (285-295) Calcium 8.3 mg/dL L mg/dL (8.5-10.5) Total Bilirubin 0.9 mg/dL mg/dL (0.15-1.2) AST 23 U/L U/L (0-40) ALT 63 U/L H U/L (0-41) Alkaline Phosphata se 194 IU/L H IU/L (40-130) Troponin T Baselin e Troponin T 120 Min [place] Delta Troponin T NT-Pro-B Natriuret Pep > 73018 pg/mL H p g/mL (0-125) Total Protein 7.0 g/dL g/dL (6.6-8.7) Albumin 4.0 g/dL g/dL (3.5-5.2) Globulin 3.0 g/dL g/dL (1.3-4.6) 07/23/21 07/23/21 13:31 15:17 WBC RBC Hgb Hct MCV MCH MCHC RDW Plt Count MPV Neut % (Auto) Lymph % (Auto) [place] % (Auto) Eos % (Auto) Baso % (Auto) Neut # (Auto) Lymph # (Auto) [place] # (Auto) Eos # (Auto) Baso # (Auto) Nucleated RBC % (a uto) Nucleated RBCs # Specimen Type Sample Site ABG pH ABG pCO2 ABG pO2 ABG HCO3 ABG Base Excess Jesus Test Hematocrit O2 Delivery Device Deckhand Sponge Boat ID Sodium Potassium Chloride Carbon Dioxide Anion Gap BUN Creatinine GFR Calculation Glucose Calculated Osmolal ity Calcium Total Bilirubin AST ALT Alkaline Phosphata se Troponin T Baselin e 299 ng/L H* ng/L (0-15) Troponin T 120 Min [place] 332.6 ng/L H ng/L (0-15) Delta Troponin T 33.6 ABS# H* ABS# (0-10) NT-Pro-B Natriuret Pep Total Protein Albumin Globulin EKG Data^: EKG 1: Attestation: I personally reviewed and interpreted this EKG as follows: EKG Interpretation Date: 07/23/21 EKG interpretation time: 13:25 Interpretation: Twelve-lead EKG shows a regular rhythm at a rate of 70. NH interval 194, QRS duration 105, QTc 427. Normal axis. Interpretation: Sinus rhythm. Nonspecific ST segment abnormalities. Discharge Plan Discharge Patient Disposition: Admitted As Inpatient Admit Provider: Frederick Barclay Condition: Stable Discharge Activity: Increase activity as tolerated Coding Level of Care Code ED Silver Chaser for Chg Fwxiao
--- NOTE | 2021-07-23 13:12 | XRR_ITS ---
PROCEDURE INFORMATION: Exam: XR Chest Exam date and time: 07/23/2021 1:12 PM Age: 51 years old Clinical indication: Shortness of breath. TECHNIQUE: Imaging protocol: XR of the chest. Views: 1 view. COMPARISON: CR XR chest 2V* [id number] 06/02/2021 1:15 PM FINDINGS: Lungs: No pulmonary consolidation. Pleural spaces: No pleural effusion. No pneumothorax. Heart/Mediastinum: The cardiomediastinal silhouette is unchanged. No gross evidence of pneumomediastinum. Diaphragm: Mild elevation of the right hemidiaphragm. Bones/joints: No gross fracture. Soft tissues: Possible nodule in the lower left chest measuring 9 mm. This may represent a vessel on end. XR/XR chest 1V portable [id number] IMPRESSION: 1. Approximately unchanged cardiomegaly. 2. Possible nodule in the lower left chest measuring 9 mm. This may represent a vessel on end. 3. Recommend CT chest to better characterize. This could be obtained on a nonemergent basis.
--- NOTE | 2021-07-23 13:13 | ECG_ITS ---
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 Measurements Intervals Organ Rate: 70 P: 33 OR: 194 QRS: 106 QRSD: 105 T: 21 QT: 406 QTc: 440 Interpretive Statements SINUS RHYTHM RIGHT AXIS DEVIATION [QRS AXIS > 100] Compared to ECG 06/02/2021 13:03:53 No significant changes Electronically Signed On 07-23-2021 17:05:06 CREAM MAKER by Rosie Ivey M.D. [id number]
[2021-07-23 13:36] LABS: Basophils # 0.1 10^3/uL (0.0-0.1); Basophils % 0.7 %; Eosinophils # 0.4 10^3/uL (0.0-0.8); Eosinophils % 4.6 %; Hematocrit 31.9 % (42.0-52.0); Hemoglobin 9.8 g/dL (11.7-16.6); Lymphocytes # 0.8 10^3/uL (0.8-4.8); Lymphocytes % 9.4 %; Mean Corpuscular HGB Conc 30.7 g/dL (30.0-36.0); Mean Corpuscular Hemoglobin 29.8 pg (28.0-34.0); Mean Platelet Volume 11.4 fL (7.4-10.4); Monocytes % 11.5 %; Neutrophils % 72.4 %; Nucleated Red Blood Cells % 0.3 %; Platelet Count 149 10^3/cmm (130-400); Red Blood Count 3.29 10^6/uL (4.1-5.3); Red Cell Distribution Width 20.8 % (12.1-15.1); White Blood Count 8.8 10^3/uL (4.0-10.0)
[2021-07-23 13:39] LABS: ABG PCO2 43.2 mmHg (35-45); ABG PH Result 7.36 (7.35-7.45); Arterial Blood Gas Hematocrit 30.8 % (42-52); Base Excess ABG -0.9 mmol/L (-2.0-2.0); Blood Gas Allen Test Pos; Blood Gas Operator Identificat Anonymous; Blood Gas Sample Site Radial, right; Blood Gas Sample Type Arterial; HCO3 ABG 24.6 mmol/L (22-26); Oxygen Device ROOM AIR; PO2 ABG 58.6 mmHg (80.0-100.0)
[2021-07-23 14:01] LABS: Troponin(5th) Baseline 299 ng/L (0-15)
[2021-07-23] MEDS: diphenhydrAMINE 50 mg/mL SDV 1mL 25 MG IVP (14:02)
[2021-07-23 14:05] LABS: Alanine Aminotransferase 63 U/L (0-41); Alkaline Phosphatase 194 IU/L (40-130); Anion Gap 22.8 (5-19); Aspartate Amino Transferase 23 U/L (0-40); Blood Urea Nitrogen 64 mg/dL (6-20); Calcium 8.3 mg/dL (8.5-10.5); Carbon Dioxide 21 mmol/L (22-29); Chloride 98 mmol/L (98-107); Glomerular Filtration Rate 12.9 mL/min (90-130); Glucose 236 mg/dL (65-115); Osmolality Calculated 308 mOsm/kg (285-295); Potassium 5.8 mmol/L (3.5-5.1); Sodium 136 mmol/L (136-145); Total Bilirubin 0.9 mg/dL (0.15-1.2)
[2021-07-23 14:31] LABS: NT Pro B Type Natriuretic Pept > 70000 pg/mL (0-125)
--- NOTE | 2021-07-23 15:00 | P.CONIM_ITS ---
Providers/Reason For Consult Consulting Physician/Specialty*: Thank for consultation, today had the pleasure of reviewing Mr. Velasco. I do know him from previous hospitalizations. He was at dialysis yesterday, did leave a little early and he was put on a little early. Although he mentions the staff at the clinic working to finish a little early as it was Kemal Thayer. He presents with some shortness of breath. He is hypoxic on room air but comfortable on nasal cannula. Blood pressure is a little elevated at 168/84, some lower extremity edema. Potassium 5.8. No other acute uremic symptoms. Currently on antibiotics for diabetic foot wound. Reason for Consult*: Eval for ESRD mgmt Primary Care Provider: Sulma Wetzel MD History of Present Illness History of Present Illness Akil Velasco is a 51 year old male Review of Systems Narrative: ROS - 12 point review of systems completed per HPI and subjective assessment, this includes Constitutional: No weakness, fatigue Respiratory: SOB on exertion, comfortable at rest CardioVasc: No chest pain, palpitations Gastrointestinal: No nausea, no vomiting Neurological: No seizures, no AMS Derm: No new rashes, lesions or wounds Immunological: No seasonal and no food allergies Meds/Allergies Home Medications and Allergies Home Medications Medication Instructions Recorded Confirmed Last Taken Type albuterol sulfate 2 inh INHALATION Q6H PRN #8.5 g 08/31/20 06/30/21 Unknown Rx acetaminophen [Tylenol] 975 mg PO BID 10/04/20 06/30/21 04/25/21 06:30 History aspirin 81 mg PO QAM 10/04/20 06/30/21 04/25/21 06:30 History isosorbide mononitrate 120 mg PO DAILY 10/04/20 06/30/21 01/05/21 History sevelamer carbonate See Rx Instructions .ROUTE .COMPLEX 11/11/20 06/30/21 01/05/21 History sodium bicarbonate 650 mg PO BID 11/11/20 06/30/21 04/25/21 History Lower Cam Boot to the left #1 ea 02/23/21 06/30/21 Unknown Rx Novolog U-100 Insulin aspart 10 - 15 unit SUBCUT TID PRN 04/25/21 06/30/21 Unknown History RenaPlex-D 1 tab PO DAILY 04/25/21 06/30/21 Unknown History Stool Softener 100 mg PO DAILY 04/25/21 06/30/21 Unknown History carvedilol 25 mg PO BID 04/25/21 06/30/21 04/25/21 06:30 History venlafaxine 75 mg PO DAILY 04/25/21 06/30/21 Unknown History atorvastatin 40 mg PO DAILY #0 tab 04/27/21 06/30/21 01/04/21 Rx insulin glargine 100 unit/mL 50 unit SUBCUT QAM ml 06/10/21 06/30/21 Unknown History subcutaneous solution flash glucose scanning reader #1 ea 06/30/21 06/30/21 Unknown Rx flash glucose sensor #1 ea 06/30/21 06/30/21 Unknown Rx Allergies Allergy/AdvReac Type Severity Reaction Status Date / Time No Known Allergies Allergy Verified 06/30/21 09:53 PFSH Acute PFSH: Medical History Accelerated hypertension Acute on chronic diastolic (congestive) heart failure Acute respiratory failure with hypoxia Acute respiratory failure with hypoxia and hypercapnia Qcddi-dl-wcjljut kidney injury Anasarca Anemia Anemia ARDS (adult respiratory distress syndrome) Cancer Cardiac arrest Cataract (lens) fragments in eye following cataract surgery, bilateral CHF (congestive heart failure), NYHA class III Chronic kidney disease Chronic kidney disease, stage IV (severe) Chronic respiratory failure with hypoxia and hypercapnia CKD stage 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 Congestive cardiac failure COPD (chronic obstructive pulmonary disease) Diabetes Diabetes Elevated troponin End stage renal disease on dialysis Fracture of fifth metatarsal bone of left foot Fracture of fourth metatarsal bone of left foot Heart failure Hypertension Hypertension Laceration Metabolic alkalosis Morbid obesity with BMI of 40.0-44.9, adult Neuropathy Obesity hypoventilation syndrome Obstructive sleep apnea Pneumonia due to 2018-nCo PVD (peripheral vascular disease) Renal cell carcinoma History bilateral renal cell carcinoma 2007 then recurrence on the contralateral side 2011. No recurrence for long-term follow-up with some suspicion on CT scan April 2020. Respiratory failure with hypoxia and hypercapnia Restrictive lung disease Sinus bradycardia Syncope Type 2 diabetes mellitus with diabetic polyneuropathy Urinary retention Surgical History H/O partial nephrectomy bilateral H/O wisdom tooth extraction Hx of lymph node excision Family History Father , AT AGE 65 Diabetes Cancer Metastatic prostate cancer to liver Mother , AT AGE 72 Diabetes Grandfather Diabetes Cancer Other Hyperlipidemia Social History Second hand smoke exposure: Yes Smoking risk assessment/counseling performed?: Yes Alcohol intake: current Alcohol intake frequency: holidays/special occasions only Lives independently: Yes Household members: spouse Housing: House Marital status: service: No Current occupational status: retired Pets and animals: Yes History of recent travel: No Current gender identity: Male Vitals/I&O/Wt Last Vital Signs Temp 98 F 07/23/21 12:56 Pulse 70 07/23/21 13:26 Resp 18 07/23/21 13:26 BP 168/84 07/23/21 13:26 Pulse Ox 92 07/23/21 13:48 Weight last 48 hrs Weight 150 kg Physical Exam Narrative: EXAM NARRATIVE: Constitutional: Awake, comfortable HEENT: Wet mucosa, elevated jvp, non icteric Lungs: Bilaterally clear without discernible wheeze or rales in all lung zones CVS: S1 S2, no murmurs Abdo: Soft, BS ok Ext 4: 2-3+ edema, peripheral perfusion with no cyanosis Neurological: Grossly non-focal A&P Additional A&P Information 1. ESRD We will need dialysis later on this afternoon/early this morning, will touch base with my nurse. 2K bath, ultrafiltration 3 L Dose medication for GFR less than 15 on dialysis 2. Hyperkalemia High but noncritical, a.m. labs, dialysis will definitively treat, no therapy is required for the time being, renal diet i.e. low potassium. 3. Hypertension Over his dry weight has hypertensive, continue home medication, dialysis with ultrafiltration to bring this down. 4. Anemia Slightly below goal for ESRD, EPO and iron as an outpatient as part 5. Bone metabolism of ESRD Continue home binder therapy, PTH and phos as an outpatient Thank you for consultation, it is a pleasure to follow these cases with you Exam and interview performed with aid of bedside RN using telemedicine Time spent 20 min inc > 50% of time in face to face counseling John Peters MD [facility] [place] [facility] [phone] Consult Attestations Medical Necessity Statement: Eval for ESRD mgmt Coding Level of Care Code Acute Armament Mechanic for Patricia Reid
[2021-07-23 15:48] LABS: Troponin 5 2HR 332.6 ng/L (0-15); Troponin 5 2HR Delta 33.6 ABS# (0-10)
--- NOTE | 2021-07-23 18:49 | P.HP_ITS ---
Providers/Chief Complaint Admitting Physician: Frederick Barclay Primary Care Provider: Sulma Wetzel MD Chief Complaint: RETAINING FLUID ON DIALYSIS History of Present Illness Very pleasant 51-year-old gentleman with history of ESRD, HD MWF via left arm fistula, DM2 with peripheral neuropathy, diabetic ulcer left lateral foot following with wound care clinic, osteomyelitis, currently on Augmentin 42-day course of treatment, COPD, HTN, morbid obesity, SYED, intolerant of CPAP, PVD, restrictive lung disease, not normally on supplemental oxygen, other chronic medical problems presents due to worsening dyspnea with exertion, currently even somewhat at rest, no chest pain or pressure, weight gain, normally weighing around 140 kg, reports feels that his dialysis has been finishing earlier, does not normally request to stop dialysis early, last session requested to leave about an hour early. On presentation saturation 92% on room air. Afebrile, without leukocytosis. Denies any chills or fever at home. No cough. Chest x- ray with cardiomegaly, discussed with him also possible nodule in the left lower chest, 9 mm in size. NT proBNP 70,000. Troponin 299-332.6, with chronic elevation, most recently in April 01 143. Reports history of congestive heart failure, most recent echocardiogram in October with normal ejection fraction, grade 2 diastolic dysfunction. Moderate tricuspid regurgitation. Has had a stress test in the past, as per records appears most recently in July 2019 with small sized perfusion of normality of moderate severity of apical anterior and apical lateral farias with improved tracer uptake on stress images suggestive of attenuation artifact, at that time ejection fraction estimated 25%, global hypokinesis. No coronary ischemia on the study. His abdomen feels bloated and swollen. With weight gain, progressive dyspnea, he felt he could not make it until Sunday without additional dialysis. Nephrology is consulted in ER. Planning for additional hemodialysis. Skin has been itchy, which he has been scratching creating excoriations. Several weeks of loose bowel movements, not watery diarrhea. Small amount of blood on tissue paper. No hematochezia or melena. Review of Systems Const: Denies: fever(s), chills, body aches or malaise Eyes: Denies: change in vision or eye redness ENMT: Denies: throat pain, oral sores or ear or mastoid pain Card: Reports: dyspnea on exertion; Denies: chest pain, edema or pre-syncope Resp: Reports: dyspnea; Denies: productive cough, change in phlegm color or hemoptysis GI: Reports: diarrhea; Denies: abdominal pain, nausea, vomiting, constipation, hematochezia or melena : Denies: flank pain, difficulty urinating, urinary frequency or hematuria Musc: Denies: back pain, joint swelling or joint redness Skin/Breast: Reports: pruritus, sores (small excorioations from itching) and lesions (L lat foot); Denies: rash or new lesions Neuro: Denies: headache(s), numbness in extremities, weakness in extremities, dizziness, confusion or seizure-like activity Endo: Denies: polyuria or polydipsia Ramy/Lymph: Denies: easy bleeding or purpura All/Imm: Denies: urticaria, throat swelling or tongue swelling Medications/Allergies Home Medications Medication Instructions Recorded Confirmed Last Taken Type acetaminophen [Tylenol] 975 mg PO BID 10/04/20 07/23/21 04/25/21 06:30 History aspirin 81 mg PO QAM 10/04/20 07/23/21 04/25/21 06:30 History isosorbide mononitrate 120 mg PO DAILY 10/04/20 07/23/21 01/05/21 History sevelamer carbonate See Rx Instructions .ROUTE .COMPLEX 11/11/20 07/23/21 01/05/21 History sodium bicarbonate 650 mg PO BID 11/11/20 07/23/21 04/25/21 History Lower Cam Boot to the left #1 ea 02/23/21 07/23/21 Unknown Rx RenaPlex-D 1 tab PO DAILY 04/25/21 07/23/21 Unknown History carvedilol 25 mg PO BID 04/25/21 07/23/21 04/25/21 06:30 History venlafaxine 75 mg PO DAILY 04/25/21 07/23/21 Unknown History atorvastatin 40 mg PO DAILY #0 tab 04/27/21 07/23/21 01/04/21 Rx flash glucose scanning reader #1 ea 06/30/21 07/23/21 Unknown Rx flash glucose sensor #1 ea 06/30/21 07/23/21 Unknown Rx Allergies Allergy/AdvReac Type Severity Reaction Status Date / Time ciprofloxacin [From Cipro] AdvReac Severe Tendonitis Unverified 07/23/21 17:38 PFSH Acute PFSH: Medical History Accelerated hypertension Acute on chronic diastolic (congestive) heart failure Acute respiratory failure with hypoxia Acute respiratory failure with hypoxia and hypercapnia Fyyee-jg-bxrkjzi kidney injury Anasarca Anemia Anemia ARDS (adult respiratory distress syndrome) Cancer Cardiac arrest Cataract (lens) fragments in eye following cataract surgery, bilateral CHF (congestive heart failure), NYHA class III Chronic kidney disease Chronic kidney disease, stage IV (severe) Chronic respiratory failure with hypoxia and hypercapnia CKD stage 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 Congestive cardiac failure COPD (chronic obstructive pulmonary disease) Diabetes Diabetes Elevated troponin End stage renal disease on dialysis Fracture of fifth metatarsal bone of left foot Fracture of fourth metatarsal bone of left foot Heart failure Hypertension Hypertension Laceration Metabolic alkalosis Morbid obesity with BMI of 40.0-44.9, adult Neuropathy Obesity hypoventilation syndrome Obstructive sleep apnea Pneumonia due to 2018-nCoV PVD (peripheral vascular disease) Renal cell carcinoma History bilateral renal cell carcinoma 2007 then recurrence on the c ontralateral side 2011. No recurrence for long-term follow-up with some suspicion on CT scan April 2020. Respiratory failure with hypoxia and hypercapnia Restrictive lung disease Sinus bradycardia Syncope Type 2 diabetes mellitus with diabetic polyneuropathy Urinary retention Surgical History H/O partial nephrectomy bilateral H/O wisdom tooth extraction Hx of lymph node excision Family History Father , AT AGE 65 Diabetes Cancer Metastatic prostate cancer to liver Mother , AT AGE 72 Diabetes Grandfather Diabetes Cancer Other Hyperlipidemia Social History (Updated 07/23/21 @ 18:52 by Frederick Barclay MD) Smoking and tobacco status: never smoked Second hand smoke exposure: Yes Smoking risk assessment/counseling performed?: Yes Alcohol intake: current Alcohol intake frequency: holidays/special occasions only Lives independently: Yes Household members: spouse Housing: House Marital status: service: No Current occupational status: retired Pets and animals: Yes History of recent travel: No Current gender identity: Male Vitals/I&O/Wt Last Vital Signs Temp 98.4 F 07/23/21 17:40 Pulse 72 07/23/21 17:40 Resp 18 07/23/21 17:40 BP 166/87 07/23/21 17:40 Pulse Ox 92 07/23/21 17:40 Weight last 48 hrs Weight 150 kg Physical Exam Const: COMMON NORMALS: no acute distress, patient oriented x3 and alert GENERAL APPEARANCE: cooperative NUTRITIONAL APPEARANCE: obese ORIENTATI ON/CONSCIOUSNESS: Yes awake HENMT: COMMON NORMALS: oropharynx normal Neck/C-Spine: COMMON NORMALS: no JVD Resp: COMMON NORMALS: normal respiratory effort and clear to auscultation bilaterally AUSCULTATION: clear to auscultation bilaterally Cardio: COMMON NORMALS: no JVD, regular rhythm, S1 normal heart sound present, S2 normal heart sound present and No murmurs present (Cardio) RHYTHM: regular rhythm HEART SOUNDS: S1 normal heart sound present and S2 normal heart sound present GI: COMMON NORMALS: non-tender AUSCULTATION: Yes normoactive bowel sounds PALPATION: Yes Firmness to palpation present (GI) Extremity: COMMON NORMALS: no joint enlargement GENERAL: Yes edema (trace) Neuro: COMMON NORMALS: patient oriented x3 and moves all extremities Skin: COMMON NORMALS: no rashes or lesions noted LESIONS: lesion noted (2cm ulceration plantar/edge L lat foot, no drainage) Data : 07/23/21 13:31 07/23/21 13:31 A&P Assessment and plan (1) Fluid overload: Possibly with acute diastolic CHF exacerbation responsible for dyspnea. Appreciate nephrology consultation. Additional hemodialysis is being arranged. Limited TTE. Status: Acute (2) Hyperkalemia: Hemodialysis. Status: Acute (3) Diabetic ulcer of left foot: On Augmentin currently due to nonhealing ulcer, following with wound care clinic. Continue Augmentin. Continue dressing changes, discussed if his dressings can be brought in we will resume those. Status: Acute (4) Loose stools: Check C. difficile Possibly impaired digestion/absorption secondary to fluid overload/gut edema. Additional hemodialysis as above. Status: Acute (5) Elevated troponin: Continue aspirin, Brilinta, Imdur, likely no benefit from statin ESRD on dialysis. No chest pain or pressure. Currently low suspicion of ACS, however, will additionally assess with limited TTE. Additionally given risk factors, most recent stress test in July 2019, would additionally refer for nonemergent stress testing. Status: Acute (6) Lung nodule: Discussed with him 90 mm incidentally noted possible nodule on chest x- ray. Discussed follow-up with nonurgent CT. Status: Acute Additional A&P Information Anemia DM2 HTN SYED intolerant of CPAP Multiple other medical problems noted. Attestations Medical Necessity Statement*: Place in observation for assessment management of worsening dyspnea, fluid overload with possible CHF exacerbation, hyperkalemi a, additional hemodialysis, additional work-up as above. Coding Level of Care Code Acute Software Support Technician for Chg Fwd Diagnoses Fluid overload E87.70 Hyperkalemia E87.5 Diabetic ulcer of left foot E11.621; L97.529 Loose stools R19.5 Elevated troponin R79.89 Lung nodule R91.1
--- NOTE | 2021-07-23 19:13 | ECG_ITS ---
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 Measurements Intervals [place] Rate: 76 P: 59 PA: 165 QRS: 120 QRSD: 109 T: 11 QT: 405 QTc: 457 Interpretive Statements SINUS RHYTHM POSSIBLE RIGHT VENTRICULAR HYPERTROPHY [SOME/ALL OF: PROMINENT R IN V1, LATE TRANSITION, RAD, JEROME, SSS] Compared to ECG 07/23/2021 13:22:58 Atrial abnormality now present Right-axis deviation no longer present Electronically Signed On 07-25-2021 17:00:15 SYSTEMS AUDITOR by Rosie Ivey M.D. [id number]
[2021-07-23 19:57] LABS: Troponin 5 6HR Delta 8.5 ng/L (0-12)
[2021-07-23 20:02] LABS: Troponin 5 6HR 307.5 ng/L (0-15)
[2021-07-23] MEDS: sevelamer 800 mg Tablet PEG-TUBE (20:45)
[2021-07-23] MEDS: amoxicillin-clav 875-125 mg Tablet 1 TAB PO (20:45)
[2021-07-23] MEDS: enoxaparin 40 mg/0.4 mL Syringe SUBCUT (20:45)
[2021-07-23 20:52] LABS: Glucose Point of Care 230 mg/dL (70-110)
[2021-07-23] MEDS: acetaminophen 325 mg Tablet 650 MG PO (21:17)
[2021-07-23] MEDS: insulin lispro 100 unit/1 mL SUBCUT (21:18)
[2021-07-23] MEDS: diphenhydrAMINE 50 mg Capsule PO (23:00)
[2021-07-24] VITALS (8 sets, daily range): BP systolic 166–198; BP diastolic 76–99; PULSE 74–83; RESP 16–25; TEMP 36.7–37; O2SAT 90–95
[2021-07-24] MEDS: hyDRALAzine 20 mg/mL INJ 1 mL 10 MG IVP (01:15)
[2021-07-24] MEDS: aspirin 81 mg EC Tablet PO (05:03)
[2021-07-24 05:37] LABS: Basophils # 0.1 10^3/uL (0.0-0.1); Basophils % 0.8 %; Eosinophils # 0.5 10^3/uL (0.0-0.8); Eosinophils % 5.8 %; Hematocrit 31.3 % (42.0-52.0); Hemoglobin 9.9 g/dL (11.7-16.6); Lymphocytes % 11.4 %; Mean Corpuscular HGB Conc 31.6 g/dL (30.0-36.0); Mean Corpuscular Hemoglobin 30.1 pg (28.0-34.0); Mean Corpuscular Volume 95.1 fl (80-94); Mean Platelet Volume 12.1 fL (7.4-10.4); Monocytes % 11.2 %; Neutrophils % 69.8 %; Nucleated Red Blood Cells % 0 %; Platelet Count 166 10^3/cmm (130-400); Red Blood Count 3.29 10^6/uL (4.1-5.3); White Blood Count 8.9 10^3/uL (4.0-10.0)
[2021-07-24 06:15] LABS: Alanine Aminotransferase 64 U/L (0-41); Alkaline Phosphatase 190 IU/L (40-130); Anion Gap 22.2 (5-19); Aspartate Amino Transferase 27 U/L (0-40); Blood Urea Nitrogen 62 mg/dL (6-20); Calcium 8.5 mg/dL (8.5-10.5); Carbon Dioxide 23 mmol/L (22-29); Chloride 97 mmol/L (98-107); Globulin 3.3 g/dL (1.3-4.6); Glomerular Filtration Rate 13.9 mL/min (90-130); Glucose 181 mg/dL (65-115); Osmolality Calculated 306 mOsm/kg (285-295); Potassium 5.2 mmol/L (3.5-5.1); Sodium 137 mmol/L (136-145); Total Bilirubin 0.9 mg/dL (0.15-1.2); Total Protein 7.3 g/dL (6.6-8.7)
[2021-07-24 07:19] LABS: Glucose Point of Care 180 mg/dL (70-110)
[2021-07-24] MEDS: insulin lispro 100 unit/1 mL SUBCUT (08:09)
[2021-07-24] MEDS: diphenhydrAMINE 25 mg Capsule PO (08:19)
[2021-07-24] MEDS: diphenhydrAMINE 50 mg/mL SDV 1mL 25 MG IVP (10:22)
[2021-07-24] MEDS: amoxicillin-clav 875-125 mg Tablet 1 TAB PO (11:01)
[2021-07-24] MEDS: carvedilol 25 mg Tablet PO (11:02)
[2021-07-24] MEDS: sodium bicarbonate 650 mg Tablet PO (11:02)
[2021-07-24] MEDS: isosorbide mononitrate ER 60 mg Tablet 120 MG PO (11:02)
[2021-07-24] MEDS: venlafaxine ER (24HR) 75 mg Capsule PO (11:02)
[2021-07-24] MEDS: sevelamer 800 mg Tablet PEG-TUBE (11:02)
[2021-07-24] MEDS: atorvastatin 40 mg Tablet PO (11:02)
--- NOTE | 2021-07-24 11:13 | P.PN_ITS ---
Subjective Subjective: Interval history: Mr. Velasco feels okay today. He did have dialysis this morning, however, he came off early due to severe itching. Breathing much more comfortably on room air, still has some lower extremity edema. No other acute issues. Vitals/I&O/Wt Last Vital Signs Temp 98.4 F 07/24/21 08:00 Pulse 78 07/24/21 08:00 Resp 17 07/24/21 08:00 BP 178/83 07/24/21 08:00 Pulse Ox 93 07/24/21 08:00 07/23/21 07/24/21 07/24/21 22:59 06:59 14:59 Intake Total 480 / 480 480 / 960 480 / 480 Balance 480 / 480 480 / 960 480 / 480 Weight last 48 hrs Weight 152.135 kg Weight 150 kg Physical Exam Narrative: EXAM NARRATIVE: Constitutional: Awake, comfortable HEENT: Wet mucosa, elevated jvp, non icteric Lungs: Bilaterally clear without discernible wheeze or rales in all lung zones CVS: S1 S2, no murmurs Abdo: Soft, BS ok Ext 4: 2-3+ edema, peripheral perfusion with no cyanosis Neurological: Grossly non-focal Data : 07/24/21 04:51 07/24/21 04:51 A&P Additional A&P Information 1. ESRD Ok to dialyze in the am in outpatient facility Dose medication for GFR less than 15 on dialysis 2. Hyperkalemia High but noncritical, would have come down with dialysis to some degree 3. Hypertension Over his dry weight has hypertensive, continue home medication, dialysis with ultrafiltration to bring this down. 4. Anemia Slightly below goal for ESRD, EPO and iron as an outpatient as part 5. Bone metabolism of ESRD Continue home binder therapy, PTH and phos as an outpatient ok for DC from my perspective Exam and interview performed with aid of bedside RN using telemedicine Time spent 20 min inc > 50% of time in face to face counseling John Peters MD [facility] [phone] Attestations Medical Necessity Statement*: Eval for ESRD Coding Level of Care Code Acute Laser Engraver for Chg Fwxiao
--- NOTE | 2021-07-24 11:27 | PC.HD ---
Patient began complaining of severe itching at 1015. RN notified, and IV benadryl was requested. Administered IV Benadryl at 10:30; however, patient refused to remain on dialysis despite this RN's request to wait and see if the Benadryl helped with his discomfort. AMA signed by patient; RN and manager union notified. Treatment was terminated after 1:26, with 1375 mL of fluid removed (4000 UF goal).
[2021-07-24 12:03] LABS: Glucose Point of Care 172 mg/dL (70-110)
--- NOTE | 2021-07-24 17:39 | P.DS_ITS ---
Discharge Providers Date of Admission: 07/23/21 16:08 Date of Discharge: July 24, 2021 Attending Provider at Admission: Frederick Barclay Attending Provider at Discharge: Frederick Barclay Primary Care Provider: Sulma Wetzel MD Diagnoses at Discharge Discharge Diagnosis (1) Fluid overload: Status: Acute (2) Hyperkalemia: Status: Acute (3) Diabetic ulcer of left foot: Status: Acute (4) Loose stools: Status: Acute (5) Elevated troponin: Status: Acute (6) Lung nodule: Status: Acute Reason for Visit Reason for Visit: RETAINING FLUID ON DIALYSIS Brief History: Very pleasant 51-year-old gentleman with history of ESRD, HD MWF via left arm fistula, DM2 with peripheral neuropathy, diabetic ulcer left lateral foot following with wound care clinic, osteomyelitis, currently on Augmentin 42-day course of treatment, COPD, HTN, morbid obesity, SYED, intolerant of CPAP, PVD, restrictive lung disease, not normally on supplemental oxygen, other chronic medical problems presents due to worsening dyspnea with exertion, currently even somewhat at rest, no chest pain or pressure, weight gain, normally weighing around 140 kg, reports feels that his dialysis has been finishing earlier, does not normally request to stop dialysis early, last session requested to leave about an hour early. On presentation saturation 92% on room air. Afebrile, without leukocytosis. Denies any chills or fever at home. No cough. Chest x- ray with cardiomegaly, discussed with him also possible nodule in the left lower chest, 9 mm in size. NT proBNP 70,000. Troponin 299-332.6, with chronic elevation, most recently in April 01 143. Reports history of congestive heart failure, most recent echocardiogram in October with normal ejection fraction, grade 2 diastolic dysfunction. Moderate tricuspid regurgitation. Has had a stress test in the past, as per records appears most recently in July 2019 with small sized perfusion of normality of moderate severity of apical anterior and apical lateral farias with improved tracer uptake on stress images suggestive of attenuation artifact, at that time ejection fraction estimated 25%, global hypokinesis. No coronary ischemia on the study. His abdomen feels bloated and swollen. With weight gain, progressive dyspnea, he felt he could not make it until Sunday without additional dialysis. Nephrology is consulted in ER. Planning for additional hemodialysis. Skin has been itchy, which he has been scratching creating excoriations. Several weeks of loose bowel movements, not watery diarrhea. Small amount of blood on tissue paper. No hematochezia or melena. Hospital Course Hospital Course He was observed in the hospital due to progressive dyspnea, weight gain, abdominal edema, underwent additional hemodialysis today, although due to itching requested to end the session early. Seeing him after the session, he states he is feeling much better. Shortness of breath has entirely resolved. He denies chest pain or pressure. Reports feeling better and wanting to return home. He will resume regular dialysis on Sunday. Discussed with him given troponin elevation, most recent stress test back in July 2019, referral for stress testing to which she is agreeable. This is requested. 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 Limited echocardiogram obtained in the hospital showed normal ejection fraction, although no diagnostic regional wall motion abnormality could be identified, possibility could not be completely excluded. Abnormal septal motion. Dilated right ventricle with at least moderately decreased systolic function. Moderate biatrial enlargement. No significant change compared to echocardiogram from 11/13/2020. Due to possible left lower lung 9 mm nodule he is additionally request for CT of the chest. Please follow-up results and refer for additional follow-up imaging if needed. He is asked to continue antibiotic and dressing changes for left lateral diabetic foot wound. Follow-up with wound care clinic. Physical Exam Const: COMMON NORMALS: no acute distress, patient oriented x3 and alert GENERAL APPEARANCE: cooperative NUTRITIONAL APPEARANCE: obese ORIENTATION/CONSCIOUSNESS: Yes awake HENMT: COMMON NORMALS: oropharynx normal Neck/C-Spine: COMMON NORMALS: no JVD Resp: COMMON NORMALS: normal respiratory effort and clear to auscultation bilaterally AUSCULTATION: clear to auscultation bilaterally Cardio: COMMON NORMALS: no JVD, regular rhythm, S1 normal heart sound present, S2 normal heart sound present and No murmurs present (Cardio) RHYTHM: regular rhythm HEART SOUNDS: S1 normal heart sound present and S2 normal heart sound present GI: COMMON NORMALS: non-tender AUSCULTATION: Yes normoactive bowel sounds PALPATION: Yes Firmness to palpation present (GI) (Less distended and firm) Extremity: COMMON NORMALS: no joint enlargement GENERAL: Yes edema (trace) Neuro: COMMON NORMALS: patient oriented x3 and moves all extremities SENSORIUM/ORIENTATION: Yes alert Skin: COMMON NORMALS: no rashes or lesions noted GENERAL SKIN EXAM: no rashes or lesions noted LESIONS: lesion noted (2cm ulceration plantar/edge L lat foot, no drainage) Discharge Data Data Completed and Pending: Completed Studies During Hospitalization Category Date Time Status XR chest 1V jonas ble [id number] Urgent Exams 07/23/21 13:12 Completed CV. echo limited [id number] Routine Ultrasound 07/24/21 17:40 Completed Labs from last 24 hours 07/24/21 07/24/21 07/24/21 11:49 07:13 04:51 WBC RBC Hgb Hct MCV MCH MCHC RDW Plt Count MPV Neut % (Auto) Lymph % (Auto) [place] % (Auto) Eos % (Auto) Baso % (Auto) Neut # (Auto) Lymph # (Auto) [place] # (Auto) Eos # (Auto) Baso # (Auto) Nucleated RBC % (a uto) Nucleated RBCs # Sodium 137 Potassium 5.2 H Chloride 97 L Carbon Dioxide 23 Anion Gap 22.2 H BUN 62 H Creatinine 4.5 H GFR Calculation 13.9 L Glucose 181 H POC Glucose 172 H 180 H Calculated Osmolal ity 306 H Calcium 8.5 Total Bilirubin 0.9 AST 27 ALT 64 H Alkaline Phosphata se 190 H Troponin T Hi Sens 6Hr Troponin T Hi Sens 6Hr Delta Total Protein 7.3 Albumin 4.0 Globulin 3.3 07/24/21 07/23/21 07/23/21 04:51 20:48 19:31 WBC 8.9 RBC 3.29 L Hgb 9.9 L Hct 31.3 L MCV 95.1 H MCH 30.1 MCHC 31.6 RDW 19.0 H Plt Count 166 MPV 12.1 H Neut % (Auto) 69.8 Lymph % (Auto) 11.4 [place] % (Auto) 11.2 Eos % (Auto) 5.8 Baso % (Auto) 0.8 Neut # (Auto) 6.20 Lymph # (Auto) 1.0 [place] # (Auto) 1.0 H Eos # (Auto) 0.5 Baso # (Auto) 0.1 Nucleated RBC % (a uto) 0 Nucleated RBCs # 0.0 Sodium Potassium Chloride Carbon Dioxide Anion Gap BUN Creatinine GFR Calculation Glucose POC Glucose 230 H Calculated Osmolal ity Calcium Total Bilirubin AST ALT Alkaline Phosphata se Troponin T Hi Sens 6Hr 307.5 H Troponin T Hi Sens 6Hr Delta 8.5 Total Protein Albumin Globulin Vitals: Last Vital Signs Temp 98.6 F 07/24/21 11:51 Pulse 79 07/24/21 11:51 Resp 17 07/24/21 11:51 BP 166/76 07/24/21 11:51 Pulse Ox 90 07/24/21 11:51 Discharge Plan Discharge Patient Disposition: Home Condition: Stable Prescriptions: Continued (DME) Lower [place] Boot to the left See Rx Instructions .Route .MEDSUPPLY Qty: 1 RF: 0 (DME) FreeStyle Maria Eugenia 2 Sensor Kit See Rx Instructions .Route Qty: 1 RF: 3 (DME) FreeStyle Maria Eugenia 2 [place] Misc See Rx Instructions .Route Qty: 1 RF: 0 aspirin 81 mg Tablet,Delayed Release (Dr/Ec) 81 mg PO QAM RF: 0 isosorbide mononitrate 120 mg Tablet Extended Release 24 Hr 120 mg PO DAILY RF: 0 acetaminophen [Tylenol] 325 mg Tablet 975 mg PO BID RF: 0 sodium bicarbonate 650 mg tablet 650 mg PO BID RF: 0 sevelamer carbonate 800 mg tablet See Rx Instructions .ROUTE .COMPLEX RF: 0 venlafaxine 75 mg capsule,extended release 24hr 75 mg PO DAILY RF: 0 RenaPlex-D 800 mcg-12.5 mg -2,000 unit tablet 1 tab PO DAILY RF: 0 carvedilol 25 mg tablet 25 mg PO BID RF: 0 atorvastatin 80 mg tablet 40 mg PO DAILY Qty: 0 RF: 0 Discharge Orders: Discharge Order (Routine); Ordered 07/24/21 Ordered By: Frederick Barclay Other Ambulatory Orders: CT chest wo con [id number] (Routine) Timeframe: 1 Week Facility: [facility] - Location: Radiology [facility] Ordered By: Frederick Barclay Sestamibi Stress Test Request (Routine) Timeframe: 2 Days Facility: [facility] - Location: Cardiac Diagnostic Laboratory Ordered By: Frederick Barclay Referrals: Sulma Wetzel MD [Primary Care Provider] - 4-7 days (Please call Sunday to make f/u appointment) Discharge Activity: Increase activity as tolerated Patient Instructions: Dialysis Diet (GEN) Activity Restrictions/Additional Instructions: Please resume dialysis on Sunday. Continue renal hemodialysis diet. Follow-up with your primary doctor with regards to troponin elevation and stress test results. Follow-up also regarding possible nodule in the left lower lung and results of the CT of the chest. Continue antibiotic and wound care as recommended by your wound care physician. Resume follow-up in wound care clinic. Discharge Attestations Time Spent in Discharge Care*: greater than 30 min Status at Discharge: Cognitive status at discharge: cognitively intact , Behavioral status at discharge: cooperative , Quality Metrics Clinical Quality Measures During this hospital stay, did patient experience: None Coding Level of Care Code Acute g FW DC note Diagnoses Fluid overload E87.70 Hyperkalemia E87.5 Diabetic ulcer of left foot E11.621; L97.529 Loose stools R19.5 Elevated troponin R79.89 Lung nodule R91.1
--- NOTE | 2021-07-24 17:40 | USCV_ITS ---
Akil Velasco Age: 51 Gender: M : 1970 Exam Date: 07/24/2021 06:52 Ordering Phys: Frederick Barclay MD Technologist: BOOM Exam Location: [facility] [place] Indication: Troponin elevation BP: 181 / 90 HR: 75 Rhythm: Sinus Technical Quality: Fair MEASUREMENTS (Male / Female) Normal Values 2D ECHO LV Diastolic Diameter PLAX 5.1 cm 4.2 - 5.9 / 3.9 - 5.3 cm LV Systolic Diameter PLAX 4.0 cm IVS Diastolic Thickness 1.6 cm 0.6 - 1.0 / 0.6 - 0.9 cm IVS Systolic Thickness 1.9 cm LVPW Diastolic Thickness 1.5 cm 0.6 - 1.0 / 0.6 - 0.9 cm LVPW Systolic Thickness 1.7 cm LV Ejection Fraction 2D Teich 44.7 % LV Ejection Fraction MOD 2C 44.9 % LV Ejection Fraction 2C AL 46.7 % M-MODE LV Diastolic Diameter MM 5.6 cm 4.2 - 5.9 / 3.9 - 5.3 cm LV Systolic Diameter MM 4.0 cm LV Ejection Fraction MM Teich 56.5 % IVS Diastolic Thickness MM 1.4 cm 0.6 - 1.0 / 0.6 - 0.9 cm IVS Systolic Thickness MM 1.3 cm LVPW Diastolic Thickness MM 1.4 cm 0.6 - 1.0 / 0.6 - 0.9 cm LVPW Systolic Thickness MM 2.1 cm FINDINGS Left Ventricle Normal left ventricular size and systolic function. Left ventricular ejection fraction is estimated at 55 %. Although no diagnostic regional wall motion abnormality could be identified, this possibility cannot be completely excluded. Abnormal septal motion. Right Ventricle Dilated right ventricle with at least moderately decreased systolic function. Right Atrium Moderately increased right atrial size. Left Atrium Moderately increased left atrial size. Mitral Valve Mildly thickened mitral valve. Mild mitral annular calcification. Aortic Valve Mildly thickened trileaflet aortic valve. Tricuspid Valve Structurally normal tricuspid valve. Pulmonic Valve Pulmonic valve not well visualized. Pericardium No pericardial effusion. Aorta Normal sized aortic root. CONCLUSIONS 1. Normal left ventricular size and systolic function. Left ventricular ejection fraction is estimated at 55 %. Although no diagnostic regional wall motion abnormality could be identified, this possibility cannot be completely excluded. Abnormal septal motion. 2. Dilated right ventricle with at least moderately decreased systolic function. 3. Moderate biatrial enlargement. 4. No significant change when compared to echocardiogram dated 11/13/20. Rosie Ivey MD (Electronically Signed) Final Date: 24 July 2021 11:02 S
== END 2021-07-24 14:00 | disposition home or self-care (01) ==
LOC: ER 15:12 → MEDSURG 17:06
PROVIDERS: Admitting Provider Internal Medicine; Emergency Provider Emergency Medicine; PCP Internal Medicine; Visit Provider Internal Medicine
DX: E87.70 Fluid overload, unspecified (principal); E87.5 Hyperkalemia; E11.621 Type 2 diabetes mellitus with foot ulcer; L97.529 Non-pressure chronic ulcer of other part of left foot with unspecified severity; R19.5 Other fecal abnormalities; R79.89 Other specified abnormal findings of blood chemistry; R91.1 Solitary pulmonary nodule; E11.22 Type 2 diabetes mellitus with diabetic chronic kidney disease; I12.0 Hypertensive chronic kidney disease with stage 5 chronic kidney disease or end stage renal disease; N18.6 End stage renal disease; E11.42 Type 2 diabetes mellitus with diabetic polyneuropathy; G47.33 Obstructive sleep apnea (adult) (pediatric); E66.01 Morbid (severe) obesity due to excess calories; Z68.41 Body mass index [BMI] 40.0-44.9, adult; D63.1 Anemia in chronic kidney disease
CPT/HCPCS: 36415; 36416; 36600; 71045; 80053; 82803; 82962; 83880; 84484; 85025; 93005; 93308; 96372; 96374; 99285; G0378; J0360; J1200; J1650; J1815; Q0163

== ENCOUNTER 2021-07-28 14:33 | Outpatient (CLI) | payer MEDICARE, MEDICAID, SELFPAY | END 2021-07-28 14:34 | disposition home or self-care (01) | LOC: WOUND 14:34 | PROVIDERS: PCP Internal Medicine; Visit Provider Nurse Practitioner Family | DX: I96 Gangrene, not elsewhere classified (principal); E11.621 Type 2 diabetes mellitus with foot ulcer; L97.523 Non-pressure chronic ulcer of other part of left foot with necrosis of muscle | CPT/HCPCS: 11042 ==

== ENCOUNTER 2021-08-01 10:38 | Emergency (ER) | payer MEDICARE, MEDICAID, SELFPAY ==
[2021-08-01 10:39] VITALS: BP 151/93; PULSE 70; RESP 18; TEMP 37.1; O2SAT 96
--- NOTE | 2021-08-01 11:37 | W.ED.WEAKNES ---
HPI - Weakness General: Chief complaint: Weakness Stated complaint: FLUID RETENTION Time Seen by Provider: 08/01/21 10:43 History of Present Illness: HPI Narrative: 51-year-old male comes in complaining of fluid retention. Is somewhat short of breath. He has known congestive heart failure end-stage renal disease he gets dialysis 3 days a week he is due for dialysis this morning. He was admitted on and discharged the next day under similar hospices he received his dialysis here. He came in because he does not feel comfortable getting dialysis at the dialysis clinic and prefers to have it done here. He is not having any chest pain. Patient is morbidly obese he denies any any abdominal pain or chest pain at this time. MD Complaint: generalized weakness Relieving factors: rest Exacerbating factors: exertion Associated symptoms: Reports easy bruising; Denies chest pain, chills, confusion, melena, decreased appetite, diaphoresis, dysuria, fever(s), headache(s), myalgias, nausea, rash, short of breath, syncope or vomiting Review of Systems Const: Denies: fever(s), chills or diaphoresis ENMT: Denies: throat pain, ear or mastoid pain, nasal discharge or nasal congestion Card: Denies: chest pain or syncope Resp: Denies: dyspnea, productive cough or non-productive cough GI: Denies: nausea, vomiting or melena : Denies: dysuria Skin/Breast: Denies: rash or pruritus Neuro: Denies: headache(s) or confusion Ramy/Lymph: Reports: easy bruising PFS ED PFSH: Medical History Accelerated hypertension Acute on chronic diastolic (congestive) heart failure Acute respiratory failure with hypoxia Acute respiratory failure with hypoxia and hypercapnia Wcdre-uk-ahvdrhy kidney injury Anasarca Anemia Anemia ARDS (adult respiratory distress syndrome) Cancer Cardiac arrest Cataract (lens) fragments in eye following cataract surgery, bilateral CHF (congestive heart failure), NYHA class III Chronic kidney disease Chronic kidney disease, stage IV (severe) Chronic respiratory failure with hypoxia and hypercapnia CKD stage 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 Congestive cardiac failure COPD (chronic obstructive pulmonary disease) Diabetes Diabetes Elevated troponin End stage renal disease on dialysis Fracture of fifth metatarsal bone of left foot Fracture of fourth metatarsal bone of left foot Heart failure Hypertension Hypertension Laceration Metabolic alkalosis Morbid obesity with BMI of 40.0-44.9, adult Neuropathy Obesity hypoventilation syndrome Obstructive sleep apnea Pneumonia due to 2019-nCoV PVD (peripheral vascular disease) Renal cell carcinoma History bilateral renal cell carcinoma 2007 then recurrence on the contralateral side 2011. No recurrence for long-term follow-up with some suspicion on CT scan April 2020. Respiratory failure with hypoxia and hypercapnia Restrictive lung disease Sinus bradycardia Syncope Type 2 diabetes mellitus with diabetic polyneuropathy Urinary retention Surgical History H/O partial nephrectomy bilateral H/O wisdom tooth extraction Hx of lymph node excision Family History Father , AT AGE 65 Diabetes Cancer Metastatic prostate cancer to liver Mother , AT AGE 72 Diabetes Grandfather Diabetes Cancer Other Hyperlipidemia Social History Smoking and tobacco status: never smoked Second hand smoke exposure: Yes Smoking risk assessment/counseling performed?: Yes Alcohol intake: current Alcohol intake frequency: holidays/special occasions only Lives independently: Yes Household members: spouse Housing: House Marital status: service: No Current occupational status: retired Pets and animals: Yes History of recent travel: No Current gender identity: Male Physical Exam Const: GENERAL APPEARANCE: cooperative and comfortable ORIENTATION/CONSCIOUSNESS: Yes awake, Yes oriented to person, Yes oriented to place and Yes oriented to time HENMT: COMMON NORMALS: normocephalic, atraumatic and hearing grossly normal bilaterally HEAD & SCALP: normocephalic and atraumatic Resp: COMMON NORMALS: normal respiratory effort, No retractions, No use of accessory muscles and clear to auscultation bilaterally AUSCULTATION: clear to auscultation bilaterally Cardio: COMMON NORMALS: regular rate, regular rhythm and No murmurs present (Cardio) RATE: regular rate RHYTHM: regular rhythm GI: COMMON NORMALS: Soft to palpation and No hepatosplenomegaly present AUSCULTATION: Yes normoactive bowel sounds PALPATION: Yes Soft to palpation, No Tenderness to palpation present (GI), No Guarding due to palpation present (GI) and Yes No hepatosplenomegaly present Extremity: COMMON NORMALS: normal to inspection, capillary refill normal and no calf tenderness GENERAL: Yes edema (Bilateral lower extremities to the level of the knees) Neuro: SENSORIUM/ORIENTATION: Yes oriented to person, Yes oriented to place and Yes oriented to time Skin: COMMON NORMALS: no rashes or lesions noted GENERAL SKIN EXAM: no rashes or lesions noted Course Vital Signs: Vital signs: Vital Signs Temperature 98.7 F 08/01/21 10:39 Pulse Rate 69 08/01/21 11:55 Respiratory Rate 18 08/01/21 10:39 Blood Pressure 151/93 08/01/21 10:39 Pulse Oximetry 96 08/01/21 11:55 MDM - Weakness MDM Narrative: Medical decision making narrative: Patient is fluid overloaded and does have some congestive heart failure which is exacerbated by the fluid overload however he is due for dialysis this morning which is precisely what he needs to correct this problem. He does not have anything at this time which would require hospital admission for dialysis recommend that he proceed directly from the ER to dialysis where he can receive definitive care as previously scheduled. Discharge Plan Discharge Patient Disposition: Home Clinical Impression: End stage renal disease on dialysis, Hypertension, CHF (congestive heart failure), NYHA class III Condition: Stable Prescriptions: No Action aspirin 81 mg Tablet,Delayed Release (Dr/Ec) 81 mg PO QAM RF: 0 isosorbide mononitrate 120 mg Tablet Extended Release 24 Hr 120 mg PO DAILY RF: 0 acetaminophen [Tylenol] 325 mg Tablet 975 mg PO BID RF: 0 sodium bicarbonate 650 mg tablet 650 mg PO BID RF: 0 sevelamer carbonate 800 mg tablet See Rx Instructions .ROUTE .COMPLEX RF: 0 venlafaxine 75 mg capsule,extended release 24hr 75 mg PO DAILY RF: 0 RenaPlex-D 800 mcg-12.5 mg -2,000 unit tablet 1 tab PO DAILY RF: 0 carvedilol 25 mg tablet 25 mg PO BID RF: 0 atorvastatin 80 mg tablet 40 mg PO DAILY Qty: 0 RF: 0 Discharge Orders: Discharge ED (Routine); Ordered 08/01/21 Ordered By: Jerry Bradford Referrals: Sluma Wetzel MD [Primary Care Provider] - Patient Instructions: Opioid Safety Activity Restrictions/Additional Instructions: After discharge proceed to the dialysis clinic for your regular run of dialysis. Coding Level of Care Code ED Die Drawing Checker for Chg Fwd Exam Comprehensive
[2021-08-01 11:55] VITALS: PULSE 69; O2SAT 96
== END 2021-08-01 11:56 | disposition home or self-care (01) ==
PROVIDERS: Emergency Provider Family Medicine; PCP Internal Medicine
DX: I13.2 Hypertensive heart and chronic kidney disease with heart failure and with stage 5 chronic kidney disease, or end stage renal disease (principal); E11.22 Type 2 diabetes mellitus with diabetic chronic kidney disease; N18.6 End stage renal disease; I50.9 Heart failure, unspecified; Z79.82 Long term (current) use of aspirin; J44.9 Chronic obstructive pulmonary disease, unspecified; E11.42 Type 2 diabetes mellitus with diabetic polyneuropathy; Z85.9 Personal history of malignant neoplasm, unspecified
CPT/HCPCS: 99283

== ENCOUNTER 2021-08-04 13:02 | Outpatient (CLI) | payer MEDICARE, MEDICAID, SELFPAY | END 2021-08-04 13:03 | disposition home or self-care (01) | LOC: WOUND 13:06 | PROVIDERS: PCP Internal Medicine; Visit Provider Emergency Medicine | DX: I96 Gangrene, not elsewhere classified (principal); E11.621 Type 2 diabetes mellitus with foot ulcer; L97.522 Non-pressure chronic ulcer of other part of left foot with fat layer exposed; M86.672 Other chronic osteomyelitis, left ankle and foot; J44.9 Chronic obstructive pulmonary disease, unspecified | CPT/HCPCS: 11042 ==

== ENCOUNTER 2021-08-11 08:12 | Outpatient (CLI) | payer MEDICARE, MEDICAID, SELFPAY ==
[2021-08-11 11:04] LABS: Basophils # 0.1 10^3/uL (0.0-0.1); Basophils % 0.7 %; Eosinophils # 0.4 10^3/uL (0.0-0.8); Eosinophils % 5.3 %; Hematocrit 29.7 % (42.0-52.0); Lymphocytes # 0.7 10^3/uL (0.8-4.8); Lymphocytes % 9.3 %; Mean Corpuscular HGB Conc 30.3 g/dL (30.0-36.0); Mean Corpuscular Hemoglobin 30.6 pg (28.0-34.0); Mean Platelet Volume 11.4 fL (7.4-10.4); Monocytes # 0.8 10^3/uL (0.2-0.9); Monocytes % 11.2 %; Neutrophils # 5.28 10^3/uL (1.8-7.7); Neutrophils % 73.1 %; Nucleated Red Blood Cells % 0 %; Platelet Count 150 10^3/cmm (130-400); Red Blood Count 2.94 10^6/uL (4.1-5.3); Red Cell Distribution Width 18.4 % (12.1-15.1); White Blood Count 7.2 10^3/uL (4.0-10.0)
[2021-08-11 11:32] LABS: Anion Gap 21.4 (5-19); Blood Urea Nitrogen 37 mg/dL (6-20); Calcium 8.2 mg/dL (8.5-10.5); Carbon Dioxide 22 mmol/L (22-29); Chloride 98 mmol/L (98-107); Glomerular Filtration Rate 15.9 mL/min (90-130); Glucose 85 mg/dL (65-115); Osmolality Calculated 292 mOsm/kg (285-295); Potassium 4.4 mmol/L (3.5-5.1); Sodium 137 mmol/L (136-145)
[2021-08-11 11:41] LABS: Vancomycin Trough 13.1 ug/mL (10-15)
== END 2021-08-11 08:13 | disposition home or self-care (01) ==
LOC: WOUND 08:13
PROVIDERS: PCP Internal Medicine; Visit Provider Emergency Medicine
DX: E11.621 Type 2 diabetes mellitus with foot ulcer (principal); L97.524 Non-pressure chronic ulcer of other part of left foot with necrosis of bone; L97.519 Non-pressure chronic ulcer of other part of right foot with unspecified severity; J44.9 Chronic obstructive pulmonary disease, unspecified; M86.9 Osteomyelitis, unspecified; Z46.89 Encounter for fitting and adjustment of other specified devices; R26.89 Other abnormalities of gait and mobility
CPT/HCPCS: 11042; 73630; 80048; 80202; 85025; 97760; 99212; L4361

== ENCOUNTER 2021-08-11 13:48 | Outpatient (CLI) | payer MEDICARE, MEDICAID, SELFPAY ==
--- NOTE | 2021-08-11 13:54 | XR_ITS ---
WS: [id number] RIGHT FOOT: 3 VIEW(S) TECHNIQUE: AP, oblique and lateral. HISTORY: ACUTE OSTEOMYELITIS, DIABETES WITH FOOT ULCER COMPARISON: None available. No acute fracture or dislocation. No osteolytic changes or destructive process involving the bones of the foot. Possible soft tissue ul ceration adjacent to the proximal fifth metatarsal. There is very slight change in density within the soft tissue which could be developing ulcer. Chronic appearing dislocation involving the second PIP joint. Overlapping of the proximal and middle phalanges of the second toe. XR/XR foot RT min 3V* [id number] IMPRESSION: 1. No osteomyelitis identified. 2. Subtle changes in the soft tissues along the lateral foot probably related to an early ulcer formation. 3. Chronic dislocation involving the second PIP joint.
--- NOTE | 2021-08-11 13:54 | XR_ITS ---
WS: [id number] LEFT FOOT: 3 VIEW(S) TECHNIQUE: AP, oblique and lateral. HISTORY: ACUTE OSTEOMYELITIS, DIABETES WITH FOOT ULCER COMPARISON: 02/23/2021 Lytic lesion with destruction of the cortex involving the proximal lateral fifth metatarsal. The area of osteomyelitis measures 10 x 10 mm. There is adjacent soft tissue thickening and increased density within the soft tissue which may be from the debridement and packing material. Suspect there is a la rge ulcer that has been packed. Mild degenerative changes with overlapping of the proximal metatarsals. No additional areas of osseou s destruction. Enthesopathy at the Achilles tendon. XR/XR foot LT min 3V* [id number] IMPRESSION: 1. Lytic changes in the proximal fifth metatarsal highly suspicious for osteom yelitis with an associated soft tissue ulcer. Increased density within the soft tissue is probably related to packing material within the ulcer. This ulcer is closely associated with a prior fracture. 2. Degenerative changes in the midfoot.
== END 2021-08-11 13:49 | disposition home or self-care (01) ==
PROVIDERS: PCP Internal Medicine; Visit Provider Emergency Medicine
DX: M86.9 Osteomyelitis, unspecified (principal); E11.621 Type 2 diabetes mellitus with foot ulcer
CPT/HCPCS: 73630

== ENCOUNTER 2021-08-11 16:48 | Outpatient (CLI) | payer MEDICARE, MEDICAID, SELFPAY | END 2021-08-11 16:49 | disposition home or self-care (01) | LOC: SPT 16:50 | PROVIDERS: PCP Internal Medicine; Visit Provider Emergency Medicine | DX: Z46.89 Encounter for fitting and adjustment of other specified devices (principal); R26.89 Other abnormalities of gait and mobility | CPT/HCPCS: 97760; L4361 ==

== ENCOUNTER 2021-08-13 08:35 | Emergency (ER) | payer MEDICARE, MEDICAID, SELFPAY ==
[2021-08-13] VITALS (7 sets, daily range): BP systolic 112–129; BP diastolic 74–84; PULSE 62–76; RESP 18–24; TEMP 36.8; O2SAT 83–98; BMI 43.7
--- NOTE | 2021-08-13 08:48 | XRR_ITS ---
PROCEDURE INFORMATION: Exam: XR Chest Exam date and time: 08/13/2021 8:48 AM Age: 51 years old Clinical indication: Cough and dyspnea; Additional info: Dyspnea/cough TECHNIQUE: Imaging protocol: XR of the chest. Views: 1 view. COMPARISON: CR (CHEST, ) 07/23/2021 1:37 PM FINDINGS: Lungs: Unremarkable. No consolidation. Pleural spaces: Unremarkable. No pleural effusion. No pneumothorax. Heart/Mediastinum: The cardiac silhouette is enlarged but unchanged. Bones/joints: Unremarkable. XR/XR chest 1V portable [id number] IMPRESSION: No acute abnormality.
--- NOTE | 2021-08-13 08:58 | PC.NURSE ---
Pt placed on continuous cardiac, O2 and BP monitor.
--- NOTE | 2021-08-13 09:00 | ED_ITS ---
HPI - SOB/Dyspnea General: Chief Complaint: Shortness of Breath/Dyspnea Stated Complaint: SOB Time Seen by Provider: 08/13/21 08:38 History of Present Illness: HPI Narrative: 51-year-old male who presents to the emergency room with complaint of shortness of breath. Patient has end-stage renal disease and congestive heart failure he did receive dialysis yesterday. He feels not enough fluid was taken off. States this morning he had increased shortness of breath. MD elicited complaint: shortness of breath Pertinent past history: congestive heart failure Timing: intermittent Severity: mild Exacerbating factors: lying flat, exertion and coughing Relieving factors: rest and upright position Known history of: congestive heart failure and other (End-stage renal disease) Associated symptoms: Reports cough; Deny abdominal pain, chest congestion, chest pain, diaphoresis, dizziness, extremity pain, fever(s), hemoptysis, lightheadedness, myalgias, nausea, orthopnea, palpitations, paresthesias, polydipsia, polyuria, rash, sense of impending doom, syncope or vomiting Treatment prior to arrival: none Review of Systems Const: Denies: fever(s) or diaphoresis ENMT: Denies: throat pain, ear or mastoid pain, nasal discharge or nasal congestion Card: Denies: chest pain, palpitations, lightheadedness, syncope or orthopnea Resp: Denies: hemoptysis or chest congestion GI: Denies: abdominal pain, nausea or vomiting : Denies: flank pain, dysuria, urinary frequency or urinary urgency Musc: Denies: extremity pain Skin/Breast: Denies: rash or pruritus Neuro: Denies: dizziness Endo: Denies: polyuria or polydipsia PFSH ED PFSH: Medical History Accelerated hypertension Acute on chronic diastolic (congestive) heart failure Acute respiratory failure with hypoxia Acute respiratory failure with hypoxia and hypercapnia Syyya-xi-falgfge kidney injury Anasarca Anemia Anemia ARDS (adult respiratory distress syndrome) Cancer Cardiac arrest Cataract (lens) fragments in eye following cataract surgery, bilateral CHF (congestive heart failure), NYHA class III Chronic kidney disease Chronic kidney disease, stage IV (severe) Chronic respiratory failure with hypoxia and hypercapnia CKD stage 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 Congestive cardiac failure COPD (chronic obstructive pulmonary disease) Diabetes Diabetes Elevated troponin End stage renal disease on dialysis Fracture of fifth metatarsal bone of left foot Fracture of fourth metatarsal bone of left foot Heart failure History of renal cell carcinoma Hypertension Hypertension Laceration Metabolic alkalosis Morbid obesity with BMI of 40.0-44.9, adult Neuropathy Obesity hypoventilation syndrome Obstructive sleep apnea Pneumonia due to 2018-nCoV PVD (peripheral vascular disease) Renal cell carcinoma History bilateral renal cell carcinoma 2007 then recurrence on the contralateral side 2011. No recurrence for long-term follow-up with some suspicion on CT scan April 2020. Respiratory failure with hypoxia and hypercapnia Restrictive lung disease Sinus bradycardia Syncope Type 2 diabetes mellitus with diabetic polyneuropathy Urinary retention Surgical History H/O partial nephrectomy bilateral H/O wisdom tooth extraction Hx of lymph node excision Family History Father , AT AGE 65 Diabetes Cancer Metastatic prostate cancer to liver Mother , AT AGE 72 Diabetes Grandfather Diabetes Cancer Other Hyperlipidemia Social History Second hand smoke exposure: Yes Smoking risk assessment/counseling performed?: Yes Alcohol intake: current Alcohol intake frequency: holidays/special occasions only Lives independently: Yes Household members: spouse Housing: House Marital status: service: No Current occupational status: retired Pets and animals: Yes History of recent travel: No Current gender identity: Male Physical Exam Const: COMMON NORMALS: no acute distress GENERAL APPEARANCE: cooperative and comfortable ORIENTATION/CONSCIOUSNESS: Yes awake, Yes oriented to person, Yes oriented to place and Yes oriented to time HENMT: COMMON NORMALS: normocephalic, atraumatic and hearing grossly normal bilaterally HEAD & SCALP: normocephalic and atraumatic Neck/C-Spine: COMMON NORMALS: no JVD Resp: COMMON NORMALS: normal respiratory effort, No retractions, No use of accessory muscles and clear to auscultation bilaterally AUSCULTATION: clear to auscultation bilaterally Cardio: COMMON NORMALS: no JVD, regular rate, regular rhythm and No murmurs present (Cardio) RATE: regular rate RHYTHM: regular rhythm GI: COMMON NORMALS: Soft to palpation and No hepatosplenomegaly present AUSCULTATION: Yes normoactive bowel sounds PALPATION: Yes Soft to palpation, No Tenderness to palpation present (GI), No Guarding due to palpation present (GI) and Yes No hepatosplenomegaly present Extremity: COMMON NORMALS: normal to inspection, capillary refill normal and no calf tenderness Neuro: SENSORIUM/ORIENTATION: Yes oriented to person, Yes oriented to place and Yes oriented to time Skin: COMMON NORMALS: no rashes or lesions noted GENERAL SKIN EXAM: no rashes or lesions noted Course Vital Signs: Vital signs: Vital Signs Temperature 98.3 F 08/13/21 08:39 Pulse Rate 64 08/13/21 11:53 Respiratory Rate 20 H 08/13/21 11:53 Blood Pressure 112/74 08/13/21 11:53 Pulse Oximetry 93 08/13/21 11:53 MDM - SOB/Dyspnea MDM Narrative Medical decision making narrative: Imaging and EKG reviewed. Patient at baseline discharge home routine follow-up through the dialysis clinic any worsening or change problems return to the emergency room. Medical Records Attestation: I reviewed the patient's medical records. Lab Data Attestation: I reviewed the patient's lab results. Result diagrams: 08/13/21 09:08 08/13/21 09:08 Labs: Lab Results 08/13/21 08/13/21 08/13/21 09:08 09:08 09:08 WBC 7.7 10^3/uL 10^3/uL (4.0-10.0) RBC 3.25 10^6/uL L 10^6/uL (4.1-5.3) Hgb 9.6 g/dL L g/dL (11.7-16.6) Hct 33.2 % L % (42.0-52.0) MCV 102.2 fl H fl (80-94) MCH 29.5 pg pg (28.0-34.0) MCHC 28.9 g/dL L g/dL (30.0-36.0) RDW 17.6 % H % (12.1-15.1) Plt Count 171 10^3/cmm 10^3/cmm (130-400) MPV 10.6 fL H fL (7.4-10.4) Neut % (Auto) 74.1 % % Lymph % (Auto) 10.1 % % [place] % (Auto) 9.8 % % Eos % (Auto) 4.7 % % Baso % (Auto) 0.9 % % Neut # (Auto) 5.73 10^3/uL 10^3/uL (1.8-7.7) Lymph # (Auto) 0.8 10^3/uL 10^3/uL (0.8-4.8) [place] # (Auto) 0.8 10^3/uL 10^3/uL (0.2-0.9) Eos # (Auto) 0.4 10^3/uL 10^3/uL (0.0-0.8) Baso # (Auto) 0.1 10^3/uL 10^3/uL (0.0-0.1) Nucleated RBC % (auto) 0 % % Nucleated RBCs # 0.0 /100WBC /100WBC Sodium 139 mmol/L mmol/L (136-145) Potassium 4.4 mmol/L mmol/L (3.5-5.1) Chloride 100 mmol/L mmol/L (98-107) Carbon Dioxide 21 mmol/L L mmol/L (22-29) Anion Gap 22.4 H (5-19) BUN 39 mg/dL H mg/dL (6-20) Creatinine 4.0 mg/dL H mg/dL (0.7-1.2) GFR Calculation 15.9 mL/min L mL/min (90-130) Glucose 78 mg/dL mg/dL (65-115) POC Glucose Calculated Osmolality 296 mOsm/kg H mOsm/kg (285-295) Calcium 8.9 mg/dL mg/dL (8.5-10.5) Total Bilirubin 0.5 mg/dL mg/dL (0.15-1.2) AST 32 U/L U/L (0-40) ALT 28 U/L U/L (0-41) Alkaline Phosphatase 189 IU/L H IU/L (40-130) Troponin T Baseline 406 ng/L H* ng/L (0-15) NT-Pro-B Natriuret Pep 07983 pg/mL H pg/mL (0-125) Total Protein 6.8 g/dL g/dL (6.6-8.7) Albumin 3.9 g/dL g/dL (3.5-5.2) Globulin 2.9 g/dL g/dL (1.3-4.6) 08/13/21 09:08 WBC RBC Hgb Hct MCV MCH MCHC RDW Plt Count MPV Neut % (Auto) Lymph % (Auto) [place] % (Auto) Eos % (Auto) Baso % (Auto) Neut # (Auto) Lymph # (Auto) [place] # (Auto) Eos # (Auto) Baso # (Auto) Nucleated RBC % (auto) Nucleated RBCs # Sodium Potassium Chloride Carbon Dioxide Anion Gap BUN Creatinine GFR Calculation Glucose POC Glucose 85 mg/dL mg/dL (70-110) Calculated Osmolality Calcium Total Bilirubin AST ALT Alkaline Phosphatase Troponin T Baseline NT-Pro-B Natriuret Pep Total Protein Albumin Globulin Discharge Plan Discharge Patient Disposition: Home Clinical Impression: CHF (congestive heart failure), NYHA class III, Diabetes mellitus type 2 in obese, End stage renal disease on dialysis Condition: Stable Prescriptions: No Action ofloxacin 0.3 % drops 2 drp otic (ear) ONCE PRN (Reason: Tubes in tympanic membranes) Qty: 10 12RF Rx Instructions: Apply 2 drops to each ear after water exposure (DME) Wheel Chair See Rx Instructions .Route .MEDSUPPLY Qty: 1 0RF Rx Instructions: As directed HOME aspirin 81 mg Tablet,Delayed Release (Dr/Ec) 81 mg PO QAM 0RF isosorbide mononitrate 120 mg Tablet Extended Release 24 Hr 120 mg PO DAILY 0RF sodium bicarbonate 650 mg tablet 650 mg PO TID 0RF sevelamer carbonate 800 mg tablet See Rx Instructions .ROUTE .COMPLEX 0RF Rx Instructions: 2 tabs po tid with meals and 1 tab po bid with snacks venlafaxine 75 mg capsule,extended release 24hr 75 mg PO DAILY 0RF RenaPlex-D 800 mcg-12.5 mg -2,000 unit tablet 1 tab PO DAILY 0RF carvedilol 25 mg tablet 25 mg PO BID 0RF losartan 50 mg tablet 50 mg PO DAILY 0RF atorvastatin 80 mg tablet 80 mg PO BEDTIME 0RF Lantus U-100 Insulin 100 unit/mL solution See Rx Instructions .ROUTE .COMPLEX 0RF Rx Instructions: pts states the pt has the vial at home ext med history shows last filled 04/12/21 40 units daily-solostar pen 60 units daily filled 05/05/21-pts states the pt doesnt use his insulin the way he should bumetanide 2 mg tablet See Rx Instructions .ROUTE .COMPLEX 0RF Rx Instructions: 2 tabs po bid on non hd days ( and ) trazodone 50 mg tablet 50 mg PO BEDTIME PRN (Reason: Sleep) 0RF clonazepam 0.5 mg tablet 0.5 mg PO BID 0RF metronidazole 500 mg tablet 500 mg PO TID 0RF Tylenol Ex Str Rapid Release 500 mg Tablet 500 mg PO Q6H PRN (Reason: Pain) 0RF lidocaine-prilocaine 2.5-2.5 % cream 1 applic topical . DIRECTED 0RF clonidine HCl 0.2 mg tablet 0.2 mg PO TID 0RF ropinirole 0.25 mg tablet 0.25 mg PO BEDTIME 0RF amlodipine 10 mg tablet 10 mg PO DAILY 0RF insulin aspart U-100 [Novolog U-100 Insulin aspart] 100 unit/mL solution See Rx Instructions .ROUTE .COMPLEX 0RF Rx Instructions: sliding scale tid with meals and hs hydralazine 100 mg tablet 100 mg PO Q8H 0RF Benadryl 25 mg Capsule 25 mg PO Q6H PRN (Reason: Allergy Symptoms) 0RF triamcinolone acetonide 0.1 % ointment 1 applic TOPICAL BID PRN (Reason: unknown) 0RF gabapentin 300 mg capsule 300 mg PO DAILY PRN (Reason: unknown) 0RF mupirocin 2 % ointment See Rx Instructions .ROUTE .COMPLEX 0RF Rx Instructions: use daily on right montero with dressing change diazepam 5 mg tablet See Rx Instructions .ROUTE .COMPLEX 0RF Rx Instructions: 5-10 mg po one hour prior to procedure as directed amoxicillin-pot clavulanate 875-125 mg tablet 1 tab PO BID 0RF hydroxyzine pamoate 25 mg capsule 25 mg PO DAILY PRN (Reason: Itching) 0RF Rexulti 0.25 mg tablet 0.25 mg PO DAILY 0RF Lokelma 5 gram powder in packet See Rx Instructions .ROUTE .COMPLEX 0RF Rx Instructions: 1 packet (on ,,sun and sunday (non dialysis days) Discharge Orders: Discharge ED (Routine); Ordered 08/13/21 Ordered By: Jerry Bradford Referrals: Sulma Wetzel MD [Primary Care Provider] - Discharge Diet: Cardiac Discharge Activity: Resume usual activity Patient Instructions: Opioid Safety Activity Restrictions/Additional Instructions: Continue current medications. Use oxygen 2 L by nasal cannula 24 hours a day. Follow-up with dialysis on Sunday as scheduled. Return if you have further paul singleton. Coding Level of Care Code ED [employer] for Patricia Reid
[2021-08-13 09:13] LABS: Glucose Point of Care 85 mg/dL (70-110)
[2021-08-13 09:16] LABS: Basophils # 0.1 10^3/uL (0.0-0.1); Basophils % 0.9 %; Eosinophils # 0.4 10^3/uL (0.0-0.8); Eosinophils % 4.7 %; Hematocrit 33.2 % (42.0-52.0); Hemoglobin 9.6 g/dL (11.7-16.6); Lymphocytes # 0.8 10^3/uL (0.8-4.8); Lymphocytes % 10.1 %; Mean Corpuscular HGB Conc 28.9 g/dL (30.0-36.0); Mean Corpuscular Hemoglobin 29.5 pg (28.0-34.0); Mean Corpuscular Volume 102.2 fl (80-94); Mean Platelet Volume 10.6 fL (7.4-10.4); Monocytes # 0.8 10^3/uL (0.2-0.9); Monocytes % 9.8 %; Neutrophils # 5.73 10^3/uL (1.8-7.7); Neutrophils % 74.1 %; Nucleated Red Blood Cells % 0 %; Platelet Count 171 10^3/cmm (130-400); Red Blood Count 3.25 10^6/uL (4.1-5.3); Red Cell Distribution Width 17.6 % (12.1-15.1); White Blood Count 7.7 10^3/uL (4.0-10.0)
--- NOTE | 2021-08-13 09:45 | PC.NURSE ---
Pt getting antsy, pt moved from bed to bedside chair. Pt given instruction to not get up without pushing his call light for help. Pt a fall risk. Pt responds with verbal understanding of instruction.
[2021-08-13 09:49] LABS: Troponin(5th) Baseline 406 ng/L (0-15)
[2021-08-13 09:51] LABS: Alanine Aminotransferase 28 U/L (0-41); Albumin Level 3.9 g/dL (3.5-5.2); Alkaline Phosphatase 189 IU/L (40-130); Aspartate Amino Transferase 32 U/L (0-40); Blood Urea Nitrogen 39 mg/dL (6-20); Calcium 8.9 mg/dL (8.5-10.5); Carbon Dioxide 21 mmol/L (22-29); Chloride 100 mmol/L (98-107); Globulin 2.9 g/dL (1.3-4.6); Glomerular Filtration Rate 15.9 mL/min (90-130); Glucose 78 mg/dL (65-115); Osmolality Calculated 296 mOsm/kg (285-295); Sodium 139 mmol/L (136-145); Total Bilirubin 0.5 mg/dL (0.15-1.2); Total Protein 6.8 g/dL (6.6-8.7)
[2021-08-13 10:12] LABS: Anion Gap 22.4 (5-19); Potassium 4.4 mmol/L (3.5-5.1)
--- NOTE | 2021-08-13 10:48 | ECG_ITS ---
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
== END 2021-08-13 12:30 | disposition home or self-care (01) ==
PROVIDERS: Emergency Provider Family Medicine; PCP Internal Medicine
DX: I13.2 Hypertensive heart and chronic kidney disease with heart failure and with stage 5 chronic kidney disease, or end stage renal disease (principal); E11.22 Type 2 diabetes mellitus with diabetic chronic kidney disease; I50.9 Heart failure, unspecified; N18.6 End stage renal disease; Z99.2 Dependence on renal dialysis; Z79.82 Long term (current) use of aspirin; Z79.4 Long term (current) use of insulin; J44.9 Chronic obstructive pulmonary disease, unspecified; Z77.22 Contact with and (suspected) exposure to environmental tobacco smoke (acute) (chronic)
CPT/HCPCS: 36416; 71045; 80053; 82962; 83880; 84484; 85025; 93005; 99284

== ENCOUNTER 2021-08-15 08:26 | Outpatient (CLI) | payer MEDICARE, MEDICAID, SELFPAY | END 2021-08-15 08:27 | disposition home or self-care (01) | LOC: WOUND 08:27 | PROVIDERS: PCP Internal Medicine; Visit Provider Nurse Practitioner Family | DX: M86.8X7 Other osteomyelitis, ankle and foot (principal); E11.621 Type 2 diabetes mellitus with foot ulcer; L97.526 Non-pressure chronic ulcer of other part of left foot with bone involvement without evidence of necrosis | CPT/HCPCS: G0277 ==

== ENCOUNTER 2021-08-17 08:07 | Outpatient (CLI) | payer MEDICARE, MEDICAID, SELFPAY | END 2021-08-17 08:08 | disposition home or self-care (01) | LOC: WOUND 08:08 | PROVIDERS: PCP Internal Medicine; Visit Provider Nurse Practitioner Family | DX: E11.621 Type 2 diabetes mellitus with foot ulcer (principal); L97.526 Non-pressure chronic ulcer of other part of left foot with bone involvement without evidence of necrosis; M86.9 Osteomyelitis, unspecified | CPT/HCPCS: G0277 ==

== ENCOUNTER 2021-08-18 08:14 | Outpatient (CLI) | payer MEDICARE, MEDICAID, SELFPAY | END 2021-08-18 08:15 | disposition home or self-care (01) | LOC: WOUND 08:14 | PROVIDERS: PCP Internal Medicine; Visit Provider Emergency Medicine | DX: E11.621 Type 2 diabetes mellitus with foot ulcer (principal); M86.9 Osteomyelitis, unspecified; L97.523 Non-pressure chronic ulcer of other part of left foot with necrosis of muscle; L97.526 Non-pressure chronic ulcer of other part of left foot with bone involvement without evidence of necrosis; R09.89 Other specified symptoms and signs involving the circulatory and respiratory systems; J44.9 Chronic obstructive pulmonary disease, unspecified | CPT/HCPCS: 11044; 73630; 99183; 99212; G0277 ==

== ENCOUNTER 2021-08-21 20:40 | Inpatient (IN) | payer MEDICARE, MEDICAID, SELFPAY ==
[2021-08-21 20:51] VITALS: BP 127/67; PULSE 64; RESP 24; TEMP 36.2; O2SAT 96; BMI 43.7
--- NOTE | 2021-08-21 22:27 | XRR_ITS ---
PROCEDURE INFORMATION: Exam: XR Chest Exam date and time: 08/21/2021 10:27 PM Age: 51 years old Clinical indication: Dyspnea; Additional info: SOB TECHNIQUE: Imaging protocol: XR of the chest. Views: 1 view. COMPARISON: CR (CHEST, ) 08/13/2021 9:20 AM FINDINGS: Lungs: See Heart/Mediastinum finding. Pleural spaces: Unremarkable. No pleural effusion. No pneumothorax. Heart/Mediastinum: Cardiomegaly and very mild pulmonary vascular congestion. Bones/joints: Unremarkable. XR/XR chest 1V portable [id number] IMPRESSION: Cardiomegaly and very mild pulmonary vascular congestion.
--- NOTE | 2021-08-21 22:28 | ECG_ITS ---
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 Measurements Intervals [place] Rate: 64 P: 37 [place]: 201 QRS: 105 QRSD: 106 T: 24 QT: 424 QTc: 439 Interpretive Statements SINUS RHYTHM RIGHT AXIS DEVIATION [QRS AXIS > 100] PATTERN CONSISTENT WITH PULMONARY DISEASE Compared to ECG 08/13/2021 09:16:48 Right-axis deviation now present Atrial abnormality no longer present Electronically Signed On 08-22-2021 23:52:56 SERVICE CENTER SPECIALIST by Shirin Kendrick M.D. [id number]
[2021-08-21 22:43] LABS: Basophils # 0.1 10^3/uL (0.0-0.1); Basophils % 0.7 %; Eosinophils # 0.4 10^3/uL (0.0-0.8); Eosinophils % 5.7 %; Hematocrit 33.6 % (42.0-52.0); Hemoglobin 10.2 g/dL (11.7-16.6); Lymphocytes # 0.4 10^3/uL (0.8-4.8); Lymphocytes % 5.1 %; Mean Corpuscular HGB Conc 30.4 g/dL (30.0-36.0); Mean Corpuscular Hemoglobin 31.3 pg (28.0-34.0); Mean Corpuscular Volume 103.1 fl (80-94); Mean Platelet Volume 10.7 fL (7.4-10.4); Monocytes # 0.8 10^3/uL (0.2-0.9); Monocytes % 10.4 %; Neutrophils # 5.61 10^3/uL (1.8-7.7); Neutrophils % 77.7 %; Nucleated Red Blood Cells % 0 %; Platelet Count 172 10^3/cmm (130-400); Red Blood Count 3.26 10^6/uL (4.1-5.3); Red Cell Distribution Width 17.7 % (12.1-15.1); White Blood Count 7.2 10^3/uL (4.0-10.0)
--- NOTE | 2021-08-21 23:04 | W.ED.SOB ---
HPI - SOB/Dyspnea General: Chief Complaint: Shortness of Breath/Dyspnea Stated Complaint: Rash\SOB\ Time Seen by Provider: 08/21/21 21:50 History of Present Illness: HPI Narrative: 51-year-old male with a history of end-stage renal disease on dialysis, diabetes, and chronic respiratory failure on 2.5 L of oxygen at home as well as congestive heart failure. he presents with worsening shortness of breath over the weekend. He also has noticed a purplish rash to his lower extremities, with diffuse red rash over his belly, and upper extremities as well. He denies any fever. No new medications. He did go to dialysis on Sunday without any problem. Pertinent past history: congestive heart failure and diabetes Timing: progressively worsening Severity: moderate Exacerbating factors: lying flat and exertion Relieving factors: oxygen Known history of: congestive heart failure and diabetes Associated symptoms: Reports nausea; Deny abdominal pain, chest pain, fever(s) or vomiting Review of Systems Const: Reports: body aches; Denies: fever(s) Eyes: Denies: change in vision ENMT: Denies: throat pain Card: Reports: swelling of feet/ankles; Denies: chest pain Resp: Reports: dyspnea and non-productive cough GI: Reports: nausea; Denies: abdominal pain or vomiting Neuro: Reports: weakness in extremities PFSH ED PFSH: Medical History Accelerated hypertension Acute on chronic diastolic (congestive) heart failure Acute respiratory failure with hypoxia Acute respiratory failure with hypoxia and hypercapnia Uvpsk-vo-svichjr kidney injury Anasarca Anemia Anemia ARDS (adult respiratory distress syndrome) Cancer Cardiac arrest Cataract (lens) fragments in eye following cataract surgery, bilateral CHF (congestive heart failure), NYHA class III Chronic kidney disease Chronic kidney disease, stage IV (severe) Chronic respiratory failure with hypoxia and hypercapnia CKD stage 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 Congestive cardiac failure COPD (chronic obstructive pulmonary disease) Diabetes Diabetes Elevated troponin End stage renal disease on dialysis Fracture of fifth metatarsal bone of left foot Fracture of fourth metatarsal bone of left foot Heart failure Hypertension Hypertension Laceration Metabolic alkalosis Morbid obesity with BMI of 40.0-44.9, adult Neuropathy Obesity hypoventilation syndrome Obstructive sleep apnea Pneumonia due to 2018-nCo PVD (peripheral vascular disease) Renal cell carcinoma History bilateral renal cell carcinoma 2007 then recurrence on the contralateral side 2011. No recurrence for long-term follow-up with some suspicion on CT scan April 2020. Respiratory failure with hypoxia and hypercapnia Restrictive lung disease Sinus bradycardia Syncope Type 2 diabetes mellitus with diabetic polyneuropathy Urinary retention Surgical History H/O partial nephrectomy bilateral H/O wisdom tooth extraction Hx of lymph node excision Family History Father , AT AGE 65 Diabetes Cancer Metastatic prostate cancer to liver Mother , AT AGE 72 Diabetes Grandfather Diabetes Cancer Other Hyperlipidemia Social History Second hand smoke exposure: Yes Smoking risk assessment/counseling performed?: Yes Alcohol intake: current Alcohol intake frequency: holidays/special occasions only Lives independently: Yes Household members: spouse Housing: House Marital status: service: No Current occupational status: retired Pets and animals: Yes History of recent travel: No Current gender identity: Male Physical Exam Const: GENERAL APPEARANCE: cooperative, in distress (mild) and ill appearing HENMT: COMMON NORMALS: normocephalic HEAD & SCALP: normocephalic FACE & SINUS: normal facial exam Eye: COMMON NORMALS: Equal, round and reactive pupils present and EOMs intact bilaterally PUPIL: Yes Equal, round and reactive pupils present Chest: COMMONS NORMALS: normal inspection of the chest Resp: EFFORT & INSPECTION: Yes tachypneic, Yes respiratory distress and Yes uses accessory muscles Cardio: COMMON NORMALS: regular rate and regular rhythm RATE: regular rate RHYTHM: regular rhythm GI: INSPECTION: Yes abdominal distension PALPATION: Yes Firmness to palpation present (GI) Extremity: GENERAL: Yes edema (3-4+) Skin: NARRATIVE SKIN EXAM: Impressive purpuric rash bilaterally to lower extremities with bilateral petechiae to upper extremities and trunk. There are distended subcutaneous veins in the belly with some purpura there as well. Course Consultations: Consultation #1: estrella Vital Signs: Vital signs: Vital Signs Temperature 97.2 F L 08/21/21 20:51 Pulse Rate 60 08/22/21 01:50 Respiratory Rate 14 08/21/21 23:41 Blood Pressure 127/67 08/21/21 20:51 Pulse Oximetry 97 08/22/21 01:50 MDM - SOB/Dyspnea MDM Narrative: Medical decision making narrative: 51-year-old male with multiple medical problems. He presents with shortness of breath, and a purpuric rash with widespread petechia as well. He has significant edema to his lower extremities and scrotum with ecchymosis of both. Hemoglobin is 10. White blood cell count is 7. Potassium is 5. Creatinine is 5. He is due for dialysis later this morning. He is significantly hypoxic, despite 6 L, and is placed on BiPAP here. He is doing quite well with BiPAP, saturations are 97% on BiPAP with an FiO2 of 0.5. He will be admitted Lab Data: Labs: Lab Results 08/21/21 08/21/21 08/21/21 22:11 22:11 22:11 WBC 7.2 10^3/uL 10^3/ uL (4.0-10.0) RBC 3.26 10^6/uL L 10 ^6/uL (4.1-5.3) Hgb 10.2 g/dL L g/dL (11.7-16.6) Hct 33.6 % L % (42.0-52.0) MCV 103.1 fl H fl (80-94) MCH 31.3 pg pg (28.0-34.0) MCHC 30.4 g/dL g/dL (30.0-36.0) RDW 17.7 % H % (12.1-15.1) Plt Count 172 10^3/cmm 10^3 /cmm (130-400) MPV 10.7 fL H fL (7.4-10.4) Neut % (Auto) 77.7 % % Lymph % (Auto) 5.1 % % [place] % (Auto) 10.4 % % Eos % (Auto) 5.7 % % Baso % (Auto) 0.7 % % Neut # (Auto) 5.61 10^3/uL 10^3 /uL (1.8-7.7) Lymph # (Auto) 0.4 10^3/uL L 10^ 3/uL (0.8-4.8) [place] # (Auto) 0.8 10^3/uL 10^3/ uL (0.2-0.9) Eos # (Auto) 0.4 10^3/uL 10^3/ uL (0.0-0.8) Baso # (Auto) 0.1 10^3/uL 10^3/ uL (0.0-0.1) Nucleated RBC % (a uto) 0 % % Nucleated RBCs # 0.0 /100WBC /100W BC PT 18.70 SECONDS H S ECONDS (12.1-14.9) INR 1.53 H (0.8-1.2) APTT 31.7 SECONDS SECO NDS (23.9-36.7) Fibrinogen 428 mg/dL mg/dL (174-498) Fibrin Degrad Prod ucts Neg, <10 ug/mL ug /mL (NEG) D-Dimer 4.56 ug/mIFEU H u g/mIFEU (0-0.59) Specimen Type Sample Site ABG pH ABG pCO2 ABG pO2 ABG HCO3 ABG Base Excess Jesus Test Hematocrit Hgb O2 Saturation Carboxyhemoglobin Methemoglobin Total Hemoglobin O2 Delivery Device O2 Liters/Min Sales Clerk Supervisor ID Sodium 137 mmol/L mmol/L (136-145) Potassium 5.2 mmol/L H mmol /L (3.5-5.1) Chloride 98 mmol/L mmol/L (98-107) Carbon Dioxide 20 mmol/L L mmol/ L (22-29) Anion Gap 24.2 H (5-19) BUN 55 mg/dL H mg/dL (6-20) Creatinine 5.5 mg/dL H mg/dL (0.7-1.2) GFR Calculation 11.0 mL/min L mL/ min (90-130) Glucose 152 mg/dL H mg/dL (65-115) Calculated Osmolal ity 302 mOsm/kg H mOs m/kg (285-295) Lactic Acid Calcium 9.2 mg/dL mg/dL (8.5-10.5) Total Bilirubin 0.7 mg/dL mg/dL (0.15-1.2) AST 20 U/L U/L (0-40) ALT 19 U/L U/L (0-41) Alkaline Phosphata se 149 IU/L H IU/L (40-130) Troponin T Baselin e Troponin T 120 Min [place] Delta Troponin T C-Reactive Protein 26.8 mg/L H mg/L (0.0-4.9) Total Protein 7.3 g/dL g/dL (6.6-8.7) Albumin 3.8 g/dL g/dL (3.5-5.2) Globulin 3.5 g/dL g/dL (1.3-4.6) Procalcitonin 0.69 ng/mL H ng/m L (0-0.5) Coronavirus 229E ( PCR) SARS-CoV-2 (PCR) 08/21/21 08/21/21 08/21/21 22:11 22:11 22:15 WBC RBC Hgb Hct MCV MCH MCHC RDW Plt Count MPV Neut % (Auto) Lymph % (Auto) [place] % (Auto) Eos % (Auto) Baso % (Auto) Neut # (Auto) Lymph # (Auto) [place] # (Auto) Eos # (Auto) Baso # (Auto) Nucleated RBC % (a uto) Nucleated RBCs # PT INR APTT Fibrinogen Fibrin Degrad Prod ucts D-Dimer Specimen Type Sample Site ABG pH ABG pCO2 ABG pO2 ABG HCO3 ABG Base Excess Jesus Test Hematocrit Hgb O2 Saturation Carboxyhemoglobin Methemoglobin Total Hemoglobin O2 Delivery Device O2 Liters/Min Sales Clerk Supervisor ID Sodium Potassium Chloride Carbon Dioxide Anion Gap BUN Creatinine GFR Calculation Glucose Calculated Osmolal ity Lactic Acid 1.5 mmol/L mmol/L (0.5-2.2) Calcium Total Bilirubin AST ALT Alkaline Phosphata se Troponin T Baselin e 438 ng/L H* ng/L (0-15) Troponin T 120 Min [place] Delta Troponin T C-Reactive Protein Total Protein Albumin Globulin Procalcitonin Coronavirus 229E ( PCR) Not detected (NOT DETECT) SARS-CoV-2 (PCR) Not detected (NOT DETECT) 08/21/21 08/22/21 22:57 01:06 WBC RBC Hgb Hct MCV MCH MCHC RDW Plt Count MPV Neut % (Auto) Lymph % (Auto) [place] % (Auto) Eos % (Auto) Baso % (Auto) Neut # (Auto) Lymph # (Auto) [place] # (Auto) Eos # (Auto) Baso # (Auto) Nucleated RBC % (a uto) Nucleated RBCs # PT INR APTT Fibrinogen Fibrin Degrad Prod ucts D-Dimer Specimen Type Arterial Sample Site Radial, left ABG pH 7.29 L (7.35-7.45) ABG pCO2 53.8 mmHg H mmHg (35-45) ABG pO2 59.7 mmHg L mmHg (80.0-100.0) ABG HCO3 25.6 mmol/L mmol/ L (22-26) ABG Base Excess -1.4 mmol/L mmol/ L (-2.0-2.0) Jesus Test N/a Hematocrit 30.1 % L % (42-52) Hgb O2 Saturation 85.2 % L % (95-100) Carboxyhemoglobin 1.9 %THgb %THgb (0.4-20.1) Methemoglobin 1.1 % % (0.4-1.5) Total Hemoglobin 9.8 g/dL L g/dL (14-18) O2 Delivery Device Nc O2 Liters/Min 3.0 % % Sales Clerk Supervisor ID [email or web address] Sodium Potassium Chloride Carbon Dioxide Anion Gap BUN Creatinine GFR Calculation Glucose Calculated Osmolal ity Lactic Acid Calcium Total Bilirubin AST ALT Alkaline Phosphata se Troponin T Baselin e Troponin T 120 Min [place] 396.4 ng/L H ng/L (0-15) Delta Troponin T -41.6 ABS# L ABS# (0-10) C-Reactive Protein Total Protein Albumin Globulin Procalcitonin Coronavirus 229E ( PCR) SARS-CoV-2 (PCR) Discharge Plan Discharge Patient Disposition: Admitted As Inpatient Clinical Impression: Purpura Respiratory failure with hypoxia and hypercapnia Qualifiers: Chronicity: acute on chronic Qualified Code(s): J96.21 - Acute and chronic respiratory failure with hypoxia Pulmonary edema Qualifiers: Chronicity: acute Qualified Code(s): J81.0 - Acute pulmonary edema Condition: Stable Coding Level of Care Code ED Prison Psychiatrist for [facility] Fwd Exam Comprehensive
[2021-08-21 23:09] LABS: ABG PCO2 53.8 mmHg (35-45); ABG PH Result 7.29 (7.35-7.45); Arterial Blood Gas Hematocrit 30.1 % (42-52); Base Excess ABG -1.4 mmol/L (-2.0-2.0); Blood Gas Sample Site Radial, left; Blood Gas Sample Type Arterial; Carboxyhemoglobin 1.9 %THgb (0.4-20.1); HCO3 ABG 25.6 mmol/L (22-26); HGB O2 Sat 85.2 % (95-100); Methemoglobin 1.1 % (0.4-1.5); Oxygen Device NC; PO2 ABG 59.7 mmHg (80.0-100.0); Total Hemoglobin 9.8 g/dL (14-18)
[2021-08-21 23:12] LABS: Lactic Sepsis W/Reflex 1.5 mmol/L (0.5-2.2)
[2021-08-21 23:16] LABS: Alanine Aminotransferase 19 U/L (0-41); Albumin Level 3.8 g/dL (3.5-5.2); Alkaline Phosphatase 149 IU/L (40-130); Anion Gap 24.2 (5-19); Aspartate Amino Transferase 20 U/L (0-40); Blood Urea Nitrogen 55 mg/dL (6-20); C Reactive Protein 26.8 mg/L (0.0-4.9); Calcium 9.2 mg/dL (8.5-10.5); Carbon Dioxide 20 mmol/L (22-29); Chloride 98 mmol/L (98-107); Globulin 3.5 g/dL (1.3-4.6); Glucose 152 mg/dL (65-115); Osmolality Calculated 302 mOsm/kg (285-295); Potassium 5.2 mmol/L (3.5-5.1); Sodium 137 mmol/L (136-145); Total Bilirubin 0.7 mg/dL (0.15-1.2); Total Protein 7.3 g/dL (6.6-8.7); Troponin(5th) Baseline 438 ng/L (0-15)
[2021-08-21 23:22] LABS: Procalcitonin 0.69 ng/mL (0-0.5)
[2021-08-21 23:40] LABS: INR 1.53 (0.8-1.2)
[2021-08-21 23:41] VITALS: RESP 14
[2021-08-21 23:41] LABS: Partial Thromboplastin Time 31.7 SECONDS (23.9-36.7)
[2021-08-21] MEDS: morphine 4 mg/mL SDV 1 mL IVP (23:41)
[2021-08-21] MEDS: ondansetron 2 mg/ML SDV 2 mL 4 MG IVP (23:41)
[2021-08-21 23:44] LABS: Fibrinogen 428 mg/dL (174-498)
[2021-08-21 23:55] LABS: D Dimer 4.56 ug/mIFEU (0-0.59)
[2021-08-22] VITALS (12 sets, daily range): BP systolic 88–126; BP diastolic 54–65; PULSE 60–72; RESP 16–23; TEMP 36.6–37; O2SAT 73–100; BMI 43.7
--- NOTE | 2021-08-22 00:28 | ECG_ITS ---
[facility] Test Date: 2021-08-22 Pat Name: Akil Velasco Department: Room: Gender: Male Audiometric Technician: : 1970 Requested By: Jerman Lopez Order Number: [id number] MD: Shirin Kendrick M.D. Measurements Intervals [place] Rate: 60 P: 34 SC: 198 QRS: 103 QRSD: 114 T: 19 QT: 439 QTc: 441 Interpretive Statements SINUS RHYTHM RIGHT AXIS DEVIATION [QRS AXIS > 100] MODERATE INTRAVENTRICULAR CONDUCTION DELAY [110+ ms QRS DURATION] Compared to ECG 08/21/2021 22:41:47 Intraventricular conduction delay now present Electronically Signed On 08-22-2021 23:59:10 WINDSURFING INSTRUCTOR by Shirin Kendrick M.D. [id number]
[2021-08-22 00:58] LABS: Adenovirus Not Detected (NOT DETECT); Chlamydia Pneumoniae Not Detected (NOT DETECT); Coronavirus 229E,HKU1,NL63,OC4 Not Detected (NOT DETECT); Human Metapneumovirus Not Detected (NOT DETECT); Human Rhinovirus/Enterovirus Not Detected (NOT DETECT); Influenza A Not Detected (NOT DETECT); Influenza A H1 Not Detected (NOT DETECT); Influenza A H1-2009 Not Detected (NOT DETECT); Influenza A H3 Not Detected (NOT DETECT); Influenza B Not Detected (NOT DETECT); Mycoplasma Pneumoniae Not Detected (NOT DETECT); Parainfluenza Virus Type 1 Not Detected (NOT DETECT); Parainfluenza Virus Type 2 Not Detected (NOT DETECT); Parainfluenza Virus Type 3 Not Detected (NOT DETECT); Parainfluenza Virus Type 4 Not Detected (NOT DETECT); Respiratory Syncytial Virus A Not Detected (NOT DETECT); Respiratory Syncytial Virus B Not Detected (NOT DETECT); SARS-COV-2 Not Detected (NOT DETECT)
[2021-08-22 01:36] LABS: Troponin 5 2HR 396.4 ng/L (0-15)
[2021-08-22] MEDS: FUROsemide 10 mg/mL SDV 10mL 80 MG IVP (02:36)
--- NOTE | 2021-08-22 02:54 | P.HP_ITS ---
Providers/Chief Complaint Primary Care Provider: Sulma Wetzel MD Chief Complaint: Rash\SOB\ History of Present Illness Akil Velasco is a 51 year old male with past medical history of hypertension, diabetes , end-stage renal disease dependent( MWF ), HFpEF , chronic respiratory failure on 2.5 L of oxygen at home , came in with chief complaint of worsening shortness of breath for the last 2 days , he is also complaining of a purplish rash to his lower extremities, with diffuse red rash over his belly, and upper extremities as well. He denies any fever. No new medications. Last dialysis was done on Sunday. Upon arrival in the ER he was worked up for above-mentioned complaint. Pertinent imaging studies: XR chest :mild pulmonary vascular congestion. Pertinent labs: WBC 7.2, H&H 10.2 / 33.6 , platelet:172 , serum sodium 137 serum potassium 5.2, BUN serum creatinine 55/ 5.5 Troponin trend without significant delta Procalcitonin 0.69 Review of Systems Const: Denies: fever(s), chills, body aches, change in appetite or diaphoresis Card: Denies: palpitations Resp: Denies: productive cough, wheezing or pain on inspiration GI: Denies: abdominal pain, nausea, vomiting, diarrhea or constipation : Denies: flank pain or difficulty urinating Musc: Denies: back pain or extremity pain Neuro: Denies: headache(s), difficulty walking or confusion Medications/Allergies Home Medications Medication Instructions Recorded Confirmed Last Taken Type acetaminophen [Tylenol] 975 mg PO BID 10/04/20 08/18/21 04/25/21 06:30 History aspirin 81 mg PO QAM 10/04/20 08/18/21 04/25/21 06:30 History isosorbide mononitrate 120 mg PO DAILY 10/04/20 08/18/21 01/05/21 History sevelamer carbonate See Rx Instructions .ROUTE .COMPLEX 11/11/20 08/18/21 01/05/21 History sodium bicarbonate 650 mg PO BID 11/11/20 08/18/21 04/25/21 History RenaPlex-D 1 tab PO DAILY 04/25/21 08/18/21 Unknown History carvedilol 25 mg PO BID 04/25/21 08/18/21 04/25/21 06:30 History venlafaxine 75 mg PO DAILY 04/25/21 08/18/21 Unknown History atorvastatin 40 mg PO DAILY #0 tab 04/27/21 08/18/21 01/04/21 Rx ofloxacin 0.3 % eye drops 2 drp OTIC (EAR) ONCE PRN #10 ml 08/16/21 08/18/21 Unknown Rx Wheel Chair #1 ea 08/18/21 08/18/21 Unknown Rx Allergies Allergy/AdvReac Type Severity Reaction Status Date / Time ciprofloxacin [From Cipro] AdvReac Severe Tendonitis Verified 08/18/21 12:02 PFSH Acute PFSH: Medical History Accelerated hypertension Acute on chronic diastolic (congestive) heart failure Acute respiratory failure with hypoxia Acute respiratory failure with hypoxia and hypercapnia Qcwaa-gl-lyvadeu kidney injury Anasarca Anemia Anemia ARDS (adult respiratory distress syndrome) Cancer Cardiac arrest Cataract (lens) fragments in eye following cataract surgery, bilateral CHF (congestive heart failure), NYHA class III Chronic kidney disease Chronic kidney disease, stage IV (severe) Chronic respiratory failure with hypoxia and hypercapnia CKD stage 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 Congestive cardiac failure COPD (chronic obstructive pulmonary disease) Diabetes Diabetes Elevated troponin End stage renal disease on dialysis Fracture of fifth metatarsal bone of left foot Fracture of fourth metatarsal bone of left foot Heart failure Hypertension Hypertension Laceration Metabolic alkalosis Morbid obesity with BMI of 40.0-44.9, adult Neuropathy Obesity hypoventilation syndrome Obstructive sleep apnea Pneumonia due to 2018- PVD (peripheral vascular disease) Renal cell carcinoma History bilateral renal cell carcinoma 2007 then recurrence on the contralateral side 2011. No recurrence for long-term follow-up with some suspicion on CT scan April 2020. Respiratory failure with hypoxia and hypercapnia Restrictive lung disease Sinus bradycardia Syncope Type 2 diabetes mellitus with diabetic polyneuropathy Urinary retention Surgical History H/O partial nephrectomy bilateral H/O wisdom tooth extraction Hx of lymph node excision Family History Father , AT AGE 65 Diabetes Cancer Metastatic prostate cancer to liver Mother , AT AGE 72 Diabetes Grandfather Diabetes Cancer Other Hyperlipidemia Social History Second hand smoke exposure: Yes Smoking risk assessment/counseling performed?: Yes Alcohol intake: current Alcohol intake frequency: holidays/special occasions only Lives independently: Yes Household members: spouse Housing: House Marital status: service: No Current occupational status: retired Pets and animals: Yes History of recent travel: No Current gender identity: Male Vitals/I&O/Wt Last Vital Signs Temp 97.2 F L 08/21/21 20:51 Pulse 60 08/22/21 01:50 Resp 14 08/21/21 23:41 BP 127/67 08/21/21 20:51 Pulse Ox 97 08/22/21 01:50 Weight last 48 hrs Weight 150.139 kg Physical Exam Const: COMMON NORMALS: patient oriented x3 HENMT: COMMON NORMALS: normocephalic, atraumatic, hearing grossly normal bilaterally and external ears normal HEAD & SCALP: normocephalic and atraumatic EXTERNAL EAR: Yes external ears normal Eye: COMMON NORMALS: no scleral icterus GENERAL EYE: appearance normal, both eyes and all related structures Chest: COMMONS NORMALS: normal inspection of the chest and normal palpation of entire chest wall CHEST: Yes Symmetrical chest wall rise Resp: COMMON NORMALS: normal respiratory effort, No retractions, No use of accessory muscles and clear to auscultation bilaterally EFFORT & INSPECTION: Yes symmetric chest movement AUSCULTATION: clear to auscultation bilaterally Cardio: COMMON NORMALS: regular rate, regular rhythm, S1 normal heart sound present, S2 normal heart sound present, No gallops present (Cardio), No murmurs present (Cardio), No rub (Cardio) and Peripheral pulses 2+ throughout RATE: regular rate RHYTHM: regular rhythm HEART SOUNDS: S1 normal heart sound present and S2 normal heart sound present PERIPHERAL PULSES: Peripheral pulses 2+ throughout GI: INSPECTION: Yes abdominal distension AUSCULTATION: Yes normoactive bowel sounds PALPATION: Yes Soft to palpation and Yes No hepatosplenomegaly present RECTAL EXAM: Yes deferred Extremity: NARRATIVE EXTREMITY EXAM: B/L Lower extremity redness as well as purpuric rash Neuro: COMMON NORMALS: patient oriented x3 Skin: NARRATIVE SKIN EXAM: bilateral petechiae on extremities and trunk. Data : 08/21/21 22:11 08/21/21 22:11 Micro: Microbiology 01/23/22 22:20 Blood Culture - Preliminary Blood SPECIMEN COLLECTED 08/21/21 22:20 Blood Culture - Preliminary Blood SPECIMEN COLLECTED A&P Assessment and plan (1) Volume overload: Status: Acute (2) CHF (congestive heart failure), NYHA class III: Status: Acute (3) Diabetes: Status: Acute (4) ESRD (end stage renal disease) on dialysis: Status: Acute Additional A&P Information Akil Velasco is a 51 year old male with past medical history of hypertension, diabetes , end-stage renal disease dependent( MWF ), HFpEF , chronic respiratory failure on 2.5 L of oxygen at home , came in with chief complaint of worsening shortness of breath for the last 2 days , he is also complaining of a purplish rash to his lower extremities, with diffuse red rash over his belly, and upper extremities as well. He denies any fever. No new medications. Last dialysis was done on Sunday. #SOB secondary to volume overload: #HTN #DM #ESRD D/ D #HFPEF #Bilateral lower extremity cellulitis #bilateral petechiae on extremities and trunk. Patient states that it developed after recent antibiotic use. Current plan is to continue with routine hemodialysis. Renal consult in a.m. Sliding scale insulin Continue aspirin 81 mg p.o. daily Carvedilol 25 mg p.o. twice daily Imdur 120 mg p.o. daily Doxycycline 100 mg IV twice daily bilateral petechiae on extremities and trunk.Patient states that it developed after recent antibiotic use.Will need dermatology consult as an outpatient if it worsen Heparin for DVT prophylaxis Attestations Medical Necessity Statement*: Patient needs to be hospitalized for management of shortness of breath secondary to volume overload. Anticipated length of stay greater than 2 midnights. Time Spent in Patient Care: Greater than 35 minutes (>than 50% of time spent in counselling and/or direct pt care on unit) . Coding Level of Care Code Acute Open Hearth Worker for Chg Fwd Exam Comprehensive Diagnoses Volume overload E87.70 CHF (congestive heart failure), NYHA class III I50.9 Diabetes E11.9 ESRD (end stage renal disease) on dialysis N18.6; Z99.2
[2021-08-22] MEDS: heparin 5,000 unit/mL INJ 1 mL 5000 UNIT SUBCUT (03:49)
--- NOTE | 2021-08-22 04:28 | ECG_ITS ---
[facility] Test Date: 2021-08-22 Pat Name: Akil Velasco Department: Room: Gender: Male Valve Maker: : 1970 Requested By: Jerman Lopez Order Number: [id number] MD: Shirin Kendrick M.D. Measurements Intervals [place] Rate: 64 P: 41 MI: 190 QRS: 110 QRSD: 109 T: 22 QT: 408 QTc: 424 Interpretive Statements SINUS RHYTHM PATTERN CONSISTENT WITH PULMONARY DISEASE POSSIBLE RIGHT VENTRICULAR HYPERTROPHY [SOME/ALL OF: PROMINENT R IN V1, LATE TRANSITION, RAD, JEROME, SSS] Compared to ECG 08/22/2021 00:14:46 Right-axis deviation no longer present Intraventricular conduction delay no longer present Electronically Signed On 08-23-2021 0:00:13 GAGE MAKER by Shirin Kendrick M.D. [id number]
[2021-08-22] MEDS: aspirin 81 mg EC Tablet PO (05:42)
[2021-08-22 07:06] LABS: Basophils # 0.1 10^3/uL (0.0-0.1); Basophils % 0.7 %; Eosinophils # 0.4 10^3/uL (0.0-0.8); Eosinophils % 4.6 %; Hematocrit 34.2 % (42.0-52.0); Hemoglobin 9.9 g/dL (11.7-16.6); Lymphocytes # 0.3 10^3/uL (0.8-4.8); Mean Corpuscular HGB Conc 28.9 g/dL (30.0-36.0); Mean Corpuscular Hemoglobin 31.1 pg (28.0-34.0); Mean Corpuscular Volume 107.5 fl (80-94); Mean Platelet Volume 11.5 fL (7.4-10.4); Monocytes # 0.8 10^3/uL (0.2-0.9); Monocytes % 9.8 %; Neutrophils # 6.49 10^3/uL (1.8-7.7); Neutrophils % 80.5 %; Nucleated Red Blood Cells % 0 %; Platelet Count 196 10^3/cmm (130-400); Red Blood Count 3.18 10^6/uL (4.1-5.3); Red Cell Distribution Width 17.5 % (12.1-15.1); White Blood Count 8.1 10^3/uL (4.0-10.0)
[2021-08-22 07:07] LABS: Anion Gap 22.2 (5-19); Blood Urea Nitrogen 60 mg/dL (6-20); Calcium 8.3 mg/dL (8.5-10.5); Carbon Dioxide 23 mmol/L (22-29); Chloride 97 mmol/L (98-107); Glomerular Filtration Rate 9.4 mL/min (90-130); Glucose 162 mg/dL (65-115); Osmolality Calculated 302 mOsm/kg (285-295); Potassium 6.2 mmol/L (3.5-5.1); Sodium 136 mmol/L (136-145)
--- NOTE | 2021-08-22 08:11 | P.CONIM_ITS ---
Providers/Reason For Consult Consulting Physician/Specialty*: domonique patel md/ telenephrology Reason for Consult*: ESRD Attending Physician: Paul Freeman MD Primary Care Provider: Sulma Wetzel MD History of Present Illness History of Present Illness Akil Velasco is a 51 year old male with past medical history of ESRD HD MWF, hypertension, diabetes, HFpEF , chronic respiratory failure on 2.5 L of oxygen at home. The pt is here w/ rash, sob, and burning of skin. recent cellulitis and abx use Review of Systems General: Reports: 10 or more systems reviewed and unremarkable except in HPI and below Narrative: weak, rash, sob, leg pain, dm Medications/Allergies Home Medications Medication Instructions Recorded Confirmed Last Taken Type acetaminophen [Tylenol] 975 mg PO BID 10/04/20 08/18/21 04/25/21 06:30 History aspirin 81 mg PO QAM 10/04/20 08/18/21 04/25/21 06:30 History isosorbide mononitrate 120 mg PO DAILY 10/04/20 08/18/21 01/05/21 History sevelamer carbonate See Rx Instructions .ROUTE .COMPLEX 11/11/20 08/18/21 01/05/21 History sodium bicarbonate 650 mg PO BID 11/11/20 08/18/21 04/25/21 History RenaPlex-D 1 tab PO DAILY 04/25/21 08/18/21 Unknown History carvedilol 25 mg PO BID 04/25/21 08/18/21 04/25/21 06:30 History venlafaxine 75 mg PO DAILY 04/25/21 08/18/21 Unknown History atorvastatin 40 mg PO DAILY #0 tab 04/27/21 08/18/21 01/04/21 Rx ofloxacin 0.3 % eye drops 2 drp OTIC (EAR) ONCE PRN #10 ml 08/16/21 08/18/21 Unknown Rx Wheel Chair #1 ea 08/18/21 08/18/21 Unknown Rx Allergies Allergy/AdvReac Type Severity Reaction Status Date / Time ciprofloxacin [From Cipro] AdvReac Severe Tendonitis Verified 08/18/21 12:02 Current Medications Generic Name Dose Route Start Last Admin Trade Name Freq PRN Reason Stop Dose Admin Aspirin 81 mg 08/22/21 06:00 08/22/21 05:42 Aspirin 81 Mg Ec Tablet PO 81 mg QAM [place] Administration Heparin Sodium (Porcine) 5,000 unit 08/22/21 03:00 08/22/21 03:49 Heparin 5,000 Unit/Ml Inj 1 Ml SUBCUT 5,000 unit Q12H [place] Administration PFSH Acute PFSH: Medical History Accelerated hypertension Acute on chronic diastolic (congestive) heart failure Acute respiratory failure with hypoxia Acute respiratory failure with hypoxia and hypercapnia Mhrhv-kf-kvhvhor kidney injury Anasarca Anemia Anemia ARDS (adult respiratory distress syndrome) Cancer Cardiac arrest Cataract (lens) fragments in eye following cataract surgery, bilateral CHF (congestive heart failure), NYHA class III Chronic kidney disease Chronic kidney disease, stage IV (severe) Chronic respiratory failure with hypoxia and hypercapnia CKD stage 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 Congestive cardiac failure COPD (chronic obstructive pulmonary disease) Diabetes Diabetes Elevated troponin End stage renal disease on dialysis Fracture of fifth metatarsal bone of left foot Fracture of fourth metatarsal bone of left foot Heart failure Hypertension Hypertension Laceration Metabolic alkalosis Morbid obesity with BMI of 40.0-44.9, adult Neuropathy Obesity hypoventilation syndrome Obstructive sleep apnea Pneumonia due to PVD (peripheral vascular disease) Renal cell carcinoma History bilateral renal cell carcinoma 2007 then recurrence on the contralateral side 2011. No recurrence for long-term follow-up with some suspicion on CT scan April 2020. Respiratory failure with hypoxia and hypercapnia Restrictive lung disease Sinus bradycardia Syncope Type 2 diabetes mellitus with diabetic polyneuropathy Urinary retention Surgical History H/O partial nephrectomy bilateral H/O wisdom tooth extraction Hx of lymph node excision Family History Father , AT AGE 65 Diabetes Cancer Metastatic prostate cancer to liver Mother , AT AGE 72 Diabetes Grandfather Diabetes Cancer Other Hyperlipidemia Social History Second hand smoke exposure: Yes Smoking risk assessment/counseling performed?: Yes Alcohol intake: current Alcohol intake frequency: holidays/special occasions only Lives independently: Yes Household members: spouse Housing: House Marital status: service: No Current occupational status: retired Pets and animals: Yes History of recent travel: No Current gender identity: Male Vitals/I&O/Wt Last Vital Signs Temp 98.6 F 08/22/21 07:51 Pulse 67 08/22/21 07:51 Resp 18 08/22/21 07:51 BP 114/65 08/22/21 07:51 Pulse Ox 90 08/22/21 07:51 Weight last 48 hrs Weight 150.139 kg Physical Exam Narrative: EXAM NARRATIVE: uncomfortable, sob on o2 vs noted heent- nc/at, eomi, anicteric neck supple lungs- wheezes, crackles heart- renee abd soft, nt, nd, ventral henrnia ext b/l edema, left foot bandaged LUE AVF w/ thrill and bruit skin- rash on legs, abd, chest neuro- a,a, o x3 Data Micro: Micro: Microbiology 08/21/21 22:20 Blood Culture - Pr eliminary Blood SPECIMEN [place] LIU 08/21/21 22:20 Blood Culture - Pr eliminary Blood SPECIMEN [facility] A&P Additional A&P Information 51 yr old man with past medical history of hypertension, diabetes , end-stage renal disease dependent( MWF ), HFpEF , chronic respiratory failure on 2.5 L of oxygen at home 1. ESRD- rx k medically -emergent HD 3.5 hrs, 2k bth, remove 2.5 l 2. anemia- monitor hgb 3. rash- PLEASE HAVE DERM SEE PT -Q STEROIDS 4. resp acidosis- consider bipap 5. hyperkalemia- rx k medically and HD seen and examined w/ RN- telehealth visit Consult Attestations Medical Necessity Statement: sob, esrd, hyperkalemia, rash Time Spent in Patient Care: Greater than 35 minutes (>than 50% of time spent in counselling and/or direct pt care on unit) . Coding Level of Care Code Acute Employee Communications Manager for Patricia Reid
--- NOTE | 2021-08-22 08:40 | PC.CHAP ---
Pastoral Care Encounter/Spiritual Assessment Type of Contact [] Declined bulk filler visit [] Patient/Family/Request visit [] Outpatient visit [] Follow-up visit [] Physician referral [] Code/Alert [x] Routine visit [] Staff referral [] Actively dying [] Patient sleeping [] Family support [] [] Out of room [] Palliative care [] [] Receiving care in room [] Pre-surgical visit [] Trauma [] Long length of stay [] ICU visit [] Other: Relational/Emotional Strength [x] Patient feels connected with others/family/visitors/staff [] Distress [] Loneliness/isolation [] Abandonment Spirituality of Patient [x] Person of Lizabeth [] Attends Restoration of their Lizabeth [x] Believes in Prayer [] Reads Bible or Jew materials [] There are Spiritual issues to be addressed Aspnet Developer Interventions [x] Prayer [x] Active listening [] Non-anxious presence [] Spiritual/emotional support [] Crisis/trauma care [] Spiritual counseling [] Bereavement support [] Provided bereavement packet [] Provided Bible/devotional materials [] Provided toy/stuffed animal, coloring book to patient or family member [] Provided Communion [] Anointing/[place] [] Salvation [x] Completed spiritual assessment [] Other: Impact on Illness or Injury [] Angry [] Fearful [] Anxious [] Often cries [] Exhaustion [] Unable to work [] Unable to attend mosque [] Unable to walk/stand [] Unable to read [] Unable to drive [] Unable to eat/drink [] Unable to sleep [] Unable to be with family [] Patient intubated [] Other: Summary Time spent with patient 5 min
[2021-08-22 09:20] LABS: Uric Acid 6.3 mg/dL (3.4-7.0)
[2021-08-22] MEDS: atorvastatin 40 mg Tablet PO (09:26)
[2021-08-22] MEDS: venlafaxine ER (24HR) 75 mg Capsule PO (09:26)
[2021-08-22] MEDS: b-complex-vitamin c Tablet 1 EACH PO (09:26)
[2021-08-22] MEDS: isosorbide mononitrate ER 60 mg Tablet 120 MG PO (09:26)
[2021-08-22] MEDS: sodium bicarbonate 650 mg Tablet PO ×2 (09:26→17:52)
[2021-08-22] MEDS: calcium gluconate 0.9% NaCL 1 GM/50 ML PREMIX IV (09:26)
[2021-08-22] MEDS: insulin regular-human 10 UNIT in SYRINGE 1 EACH IVP (09:27)
[2021-08-22] MEDS: dextrose 50% syringe 50 mL IVP (09:27)
[2021-08-22] MEDS: doxycycline 100 MG in sodium chloride 0.9% (plus) 100 ML IV (09:31)
[2021-08-22 09:45] LABS: Hepatitis B Surface AB 36.4 (11.5-1000); Hepatitis B Surface Antigen Non-Reactive (Nonreactive); Hepatitis C Virus Antibody Non-Reactive (Nonreactive)
--- NOTE | 2021-08-22 11:33 | PM.MISC ---
Miscellaneous Note Note: This morning I put patient back on BiPAP for shortness of breath Hemodialysis today Dr. Zamorano call me to inquire about vancomycin, patient has developed bad maculopapular rash all over his body She told me that he developed similar rash to Zyvox in the past as well Patient is stating that last dose of vancomycin and Vantin was on Sunday Patient is in semi-Funes position He could not sleep Able to answer my question, nonfocal neuro exam Abdomen distended, maculopapular rash all over his body Pruritic rash S1, S2 Patient saturating well I have transitioned him to BiPAP to improve his drowsiness Plan Hemodialysis today Keep him on BiPAP Renal consistent carb diet Left foot diabetic ulcer with osteomyelitis Tissue culture grew Enterococcus faecalis and E. coli Will need a new set of cultures and ideally bone culture, for now Zosyn to be added after we take a new swab from the wound, I will touch base with Dr. Torres
--- NOTE | 2021-08-22 11:39 | PC.PHAR ---
pt states his takes care of his medications-pts juancarlos [phone] states the pt normally takes care of his own medications-pts verified the pts medications-pts states the pt doesnt take his insulin like he should-notes are made in the pharmacy comments-
[2021-08-22] MEDS: piperacillin-tazobactam 3.375 GM in sodium chloride 0.9% (plus) 50 ML IV (14:01)
--- NOTE | 2021-08-22 16:45 | P.CONIM_ITS ---
Providers/Reason For Consult Consulting Physician/Specialty*: Godwin Torres D.P.M. Reason for Consult*: Diabetic foot Attending Physician: Chris Johansen MD Primary Care Provider: Sulma Wetzel MD History of Present Illness History of Present Illness Akil Velasco is a 51 year old male admitted to the hospital service to the emergency department for worsening of shortness of breath past 2 days. Patient has a past medical history including end-stage renal failure, dialyzes Sunday, diabetes with neuropathy, peripheral vascular disease, hypertension and chronic respiratory failure, 2.5 L of oxygen at home. 2 days ago he began experiencing shortness of breath, also complains of a rash at the extremities and on his abdomen. Actively being treated at wound care, there is documented noncompliance with his weightbearing status which is contributing to his delayed healing. As his wound has worsened he has showed more interest in trying to prevent amputation. He has a full-thickness wound subfifth metatarsal base left foot he has less significant wounds to his right foot same location. Review of Systems General: Reports: 10 or more systems reviewed and unremarkable except in HPI and below Const: Denies: fever(s) or chills Card: Denies: chest pain or palpitations Resp: Denies: productive cough GI: Denies: abdominal pain, nausea or vomiting : Denies: flank pain Musc: Reports: extremity swelling, joint pain, joint stiffness, limited range of motion and deformity Skin/Breast: Reports: erythema, skin tenderness, skin swelling, sores, nail changes and change in hair; Denies: rash Neuro: Reports: numbness in extremities, sensory changes and difficulty walking Psych: Denies: suicidal ideation Ramy/Lymph: Denies: easy bruising Medications/Allergies Home Medications Medication Instructions Recorded Confirmed Last Taken Type aspirin 81 mg PO QAM 10/04/20 08/22/21 04/25/21 06:30 History isosorbide mononitrate 120 mg PO DAILY 10/04/20 08/22/21 01/05/21 History sevelamer carbonate See Rx Instructions .ROUTE .COMPLEX 11/11/20 08/22/21 01/05/21 History sodium bicarbonate 650 mg PO TID 11/11/20 08/22/21 04/25/21 History RenaPlex-D 1 tab PO DAILY 04/25/21 08/22/21 Unknown History carvedilol 25 mg PO BID 04/25/21 08/22/21 04/25/21 06:30 History venlafaxine 75 mg PO DAILY 04/25/21 08/22/21 Unknown History ofloxacin 0.3 % eye drops 2 drp OTIC (EAR) ONCE PRN #10 ml 08/16/21 08/22/21 Unknown Rx Wheel Chair #1 ea 08/18/21 08/22/21 Unknown Rx acetaminophen [Tylenol Ex Str 500 mg PO Q6H PRN 08/22/21 08/22/21 Unknown History Rapid Release] amlodipine 10 mg PO DAILY 08/22/21 08/22/21 Unknown History amoxicillin-pot clavulanate 1 tab PO BID 08/22/21 08/22/21 Unknown History atorvastatin 80 mg PO BEDTIME 08/22/21 08/22/21 Unknown History brexpiprazole [Rexulti] 0.25 mg PO DAILY 08/22/21 08/22/21 Unknown History bumetanide See Rx Instructions .ROUTE .COMPLEX 08/22/21 08/22/21 Unknown History clonazepam 0.5 mg PO BID 08/22/21 08/22/21 Unknown History clonidine HCl 0.2 mg PO TID 08/22/21 08/22/21 Unknown History diazepam See Rx Instructions .ROUTE .COMPLEX 08/22/21 08/22/21 Unknown History diphenhydramine HCl [Benadryl] 25 mg PO Q6H PRN 08/22/21 08/22/21 Unknown History gabapentin 300 mg PO DAILY PRN 08/22/21 08/22/21 Unknown History hydralazine 100 mg PO Q8H 08/22/21 08/22/21 Unknown History hydroxyzine pamoate 25 mg PO DAILY PRN 08/22/21 08/22/21 Unknown History insulin aspart U-100 [Novolog See Rx Instructions .ROUTE .COMPLEX 08/22/21 08/22/21 Unknown History U-100 Insulin aspart] insulin glargine [Lantus U-100 See Rx Instructions .ROUTE .COMPLEX 08/22/21 08/22/21 Unknown History Insulin] lidocaine-prilocaine 1 applic TOPICAL . DIRECTED 08/22/21 08/22/21 Unknown History losartan 50 mg PO DAILY 08/22/21 08/22/21 Unknown History metronidazole 500 mg PO TID 08/22/21 08/22/21 Unknown History mupirocin See Rx Instructions .ROUTE .COMPLEX 08/22/21 08/22/21 Unknown History ropinirole 0.25 mg PO BEDTIME 08/22/21 08/22/21 Unknown History sodium zirconium cyclosilicate See Rx Instructions .ROUTE .COMPLEX 08/22/21 08/22/21 Unknown History [Lokelma] trazodone 50 mg PO BEDTIME PRN 08/22/21 08/22/21 Unknown History triamcinolone acetonide 1 applic TOPICAL BID PRN 08/22/21 08/22/21 Unknown History Allergies Allergy/AdvReac Type Severity Reaction Status Date / Time dextrose 5 % in water Allergy tendonitis Verified 08/22/21 10:53 [From Zyvox] linezolid [From Zyvox] Allergy tendonitis Verified 08/22/21 10:53 ciprofloxacin [From Cipro] AdvReac Severe Tendonitis Verified 08/18/21 12:02 Current Medications Generic Name Dose Route Start Last Admin Trade Name Freq PRN Reason Stop Dose Admin Aspirin 81 mg 08/22/21 06:00 08/22/21 05:42 Aspirin 81 Mg Ec Tablet PO 81 mg QAM [place] Administration Atorvastatin Calcium 40 mg 08/22/21 09:00 08/22/21 09:26 Atorvastatin 40 Mg Tablet PO 40 mg DAILY [place] Administration Carvedilol 6.25 mg 08/22/21 09:00 08/22/21 09:31 Carvedilol 6.25 Mg Tablet PO Not Given BID@0900,2100 [facility] Heparin Sodium (Porcine) 5,000 unit 08/22/21 03:00 08/22/21 03:49 Heparin 5,000 Unit/Ml Inj 1 Ml SUBCUT 5,000 unit Q12H [place] Administration Piperacillin Sod/Tazobactam 50 mls @ 12.5 mls/hr 08/22/21 12:30 08/22/21 14:01 Sod 3.375 gm/ Sodium Chloride IV 12.5 mls/hr Q12H [place] Administration Protocol Isosorbide Mononitrate 120 mg 08/22/21 09:00 08/22/21 09:26 Isosorbide Mononitrate Er 60 Mg Tablet PO 120 mg DAILY [place] Administration Multivitamins 1 each 08/22/21 09:00 08/22/21 09:26 L-Zujfwee-Tdhtvam C Tablet PO 1 each DAILY [place] Administration Sodium Bicarbonate 650 mg 08/22/21 09:00 08/22/21 09:26 Sodium Bicarbonate 650 Mg Tablet PO 650 mg BID [place] Administration Venlafaxine HCl 75 mg 08/22/21 09:00 08/22/21 09:26 Venlafaxine Er (24hr) 75 Mg Capsule PO 75 mg DAILY [place] Administration PFSH Acute 2 PFSH: Medical History Accelerated hypertension Acute on chronic diastolic (congestive) heart failure Acute respiratory failure with hypoxia Acute respiratory failure with hypoxia and hypercapnia Lxgrc-ow-vyweqdg kidney injury Anasarca Anemia Anemia ARDS (adult respiratory distress syndrome) Cancer Cardiac arrest Cataract (lens) fragments in eye following cataract surgery, bilateral CHF (congestive heart failure), NYHA class III Chronic kidney disease Chronic kidney disease, stage IV (severe) Chronic respiratory failure with hypoxia and hypercapnia CKD stage 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 Congestive cardiac failure COPD (chronic obstructive pulmonary disease) Diabetes Diabetes Elevated troponin End stage renal disease on dialysis Fracture of fifth metatarsal bone of left foot Fracture of fourth metatarsal bone of left foot Heart failure Hypertension Hypertension Laceration Metabolic alkalosis Morbid obesity with BMI of 40.0-44.9, adult Neuropathy Obesity hypoventilation syndrome Obstructive sleep apnea Pneumonia due to 2018- PVD (peripheral vascular disease) Renal cell carcinoma History bilateral renal cell carcinoma 2007 then recurrence on the contralateral side 2011. No recurrence for long-term follow-up with some suspicion on CT scan April 2020. Respiratory failure with hypoxia and hypercapnia Restrictive lung disease Sinus bradycardia Syncope Type 2 diabetes mellitus with diabetic polyneuropathy Urinary retention Surgical History H/O partial nephrectomy bilateral H/O wisdom tooth extraction Hx of lymph node excision Family History Father , AT AGE 65 Diabetes Cancer Metastatic prostate cancer to liver Mother , AT AGE 72 Diabetes Grandfather Diabetes Cancer Other Hyperlipidemia Social History Second hand smoke exposure: Yes Smoking risk assessment/counseling performed?: Yes Alcohol intake: current Alcohol intake frequency: holidays/special occasions only Lives independently: Yes Household members: spouse Housing: House Marital status: service: No Current occupational status: retired Pets and animals: Yes History of recent travel: No Current gender identity: Male Vitals/I&O/Wt Last Vital Signs Temp 97.8 F 08/22/21 15:34 Pulse 62 08/22/21 16:02 Resp 22 H 08/22/21 15:34 BP 102/58 08/22/21 15:34 Pulse Ox 96 08/22/21 16:02 08/22/21 08/22/21 08/22/21 06:59 14:59 22:59 Intake Total 150.1 / 150.1 Balance 150.1 / 150.1 Weight last 48 hrs Weight 331 lb Weight 331 lb Physical Exam Narrative: EXAM NARRATIVE: Patient is alert and oriented ?3 and in no acute distress. The following is a focused bilateral lower extremity exam. VASCULAR: Dorsalis pedis and posterior tibial arteries are palpable however diminished, DP is triphasic at the right, biphasic at the left. PT is biphasic bilaterally. Capillary refill time less than 3 seconds to the distal hallux bilaterally. Calf is supple and nontender proximally and distally. Decreased pedal hair growth bilaterally. +1 pitting edema to the left lower extremity, +2 at the right. Rubor to bilateral legs. NEUROLOGICAL: Protective sensation intact 10/10 sites, tested with [place] monofilament to bilateral feet. DERMATOLOGICAL: Wound subfifth metatarsal base probes close to bone at the central portion of the wound, no undermining or tunneling. Periwound erythema with serous drainage, no mehran purulence. Indurated lower extremity integument with dependent rubor and chronic hemosiderin/skin pigmentation changes. MUSCULOSKELETAL: No pain to palpation at left foot fourth and fifth metatarsals likely secondary to neuropathy. Bony prominence of fifth metatarsal this is subtle, no breakdown of skin, no callus formation. Reducible hammertoe deformities bilaterally2 through 5. Data Micro: Micro: Microbiology 08/21/21 22:20 Blood Culture - Pr eliminary Blood [facility] 08/21/21 22:20 Blood Culture - Pr eliminary Blood [facility] A&P Assessment and plan (1) CKD stage 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: Status: Acute (2) Chronic venous insufficiency: Status: Acute (3) Non-pressure chronic ulcer of other part of right foot with necrosis of muscle: Status: Acute 51-year-old insulin-dependent diabetic male with end-stage renal disease and chronic venous insufficiency presents with shortness of breath and rash potentially secondary to antibiotic therapies. Rashes on the extremities and abdomen. -No leukocytosis, patient is a febrile, elevated CRP 26.8 mg/L on August 21, 2021. Ordered ESR. -Noninvasive vascular studies last performed October 01, 2019 showed moderate peripheral arterial disease bilaterally, new noninvasive arterial studies were previously ordered last week. Will order arterial studies while he is hospitalized. -Wound left foot has been present since before February 2021, he has been noncompliant with offloading and weightbearing status at wound care previous wound culture taken April 07, 2021 shows Enterococcus and E. coli. -Wound was dressed today with silver alginate, sterile gauze, Kerlix and light 2 layer wrap. -Recommend nonweightbearing to left lower extremity this time, may heel touch for transfers. -Wound has been present for approximately 6 months given the length of open wound recommend surgical debridement of the wound and bone culture of the left foot fifth metatarsal for antibiotic guidance. -Patient to be n.p.o. at midnight planning on surgical debridement and bone culture tomorrow at noon. 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
[2021-08-22 18:26] LABS: Erythrocyte Sedimentation Rate 43 mm/hr (0-10)
[2021-08-22 18:29] LABS: Glucose Point of Care 125 mg/dL (70-110)
[2021-08-22 22:08] LABS: Glucose Point of Care 179 mg/dL (70-110)
[2021-08-22] MEDS: diphenhydrAMINE 25 mg Capsule PO (23:31)
[2021-08-23] VITALS (13 sets, daily range): BP systolic 102–153; BP diastolic 57–69; PULSE 59–79; RESP 10–27; TEMP 36.4–36.7; O2SAT 90–99
[2021-08-23] MEDS: piperacillin-tazobactam 3.375 GM in sodium chloride 0.9% (plus) 50 ML IV ×2 (00:01→17:22)
--- NOTE | 2021-08-23 05:48 | PM.PN ---
Subjective Subjective: Interval history: n.p.o., needs bone culture for guidance of antibiotic Afebrile, BiPAP overnight Status post dialysis on 08/22 Vitals/I&O/Wt Last Vital Signs Temp 97.7 F 08/23/21 05:25 Pulse 77 08/23/21 05:25 Resp 18 08/23/21 05:25 BP 108/63 08/23/21 05:25 Pulse Ox 98 08/23/21 05:25 08/22/21 08/22/21 08/23/21 14:59 22:59 06:59 Intake Total 150.1 / 150.1 190 / 340.1 50 / 390.1 Balance 150.1 / 150.1 190 / 340.1 50 / 390.1 Weight last 48 hrs Weight 150.139 kg Weight 150.139 kg Physical Exam Narrative: EXAM NARRATIVE: Patient is using BiPAP Nonfocal neuro exam Morbidly obese Maculopapular rash diffuse vomiting abdomen and upper extremities No active signs of cellulitis Left foot has dressing Assisted bilateral breath sounds Abdomen soft S1, S2 Data : 08/24/21 04:28 08/24/21 04:28 Micro: Microbiology 08/21/21 22:20 Blood Culture - Preliminary Blood NEGATIVE TO DATE 08/21/21 22:20 Blood Culture - Preliminary Blood NEGATIVE TO DATE A&P Assessment and plan (1) Non-pressure chronic ulcer of other part of right foot with necrosis of muscle: Status: Acute (2) Chronic venous insufficiency: Status: Acute (3) Pulmonary edema: Status: Acute Qualifiers: Chronicity: acute Qualified Code(s): J81.0 - Acute pulmonary edema (4) Purpura: Status: Acute (5) ESRD (end stage renal disease) on dialysis: Status: Acute (6) CHF (congestive heart failure), NYHA class III: Status: Acute (7) ESRD on dialysis: Status: Acute (8) Diabetic ulcer of left foot: Status: Acute (9) First degree heart block: Status: Acute Plan Shortness of breath: Acute on chronic hypoxia improved volume overload, Status post dialysis 08/22 Patient on BiPAP End-stage renal disease status post dialysis, Sunday, appreciate nephro recommendations Diffuse maculopapular rash with purpuric lesions Recent use of Augmentin and vancomycin, last dose was on Sunday Continue Zosyn for now Topical and IV steroids I have started patient on antihistamine Left foot diabetic ulcer patient is going for debridement, requested Dr. Torres to help us with antibiotic guidance via bone culture N.p.o. since midnight Hypertension: Currently normotensive N.p.o. 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
--- NOTE | 2021-08-23 05:50 | PC.NURSE ---
Pt left to go to dialysis at 0400
[2021-08-23 06:12] LABS: Basophils % 0.6 %; Eosinophils # 0.3 10^3/uL (0.0-0.8); Eosinophils % 5.2 %; Hematocrit 31.7 % (42.0-52.0); Hemoglobin 9.3 g/dL (11.7-16.6); Lymphocytes # 0.5 10^3/uL (0.8-4.8); Lymphocytes % 6.9 %; Mean Corpuscular HGB Conc 29.3 g/dL (30.0-36.0); Mean Corpuscular Hemoglobin 30.8 pg (28.0-34.0); Mean Platelet Volume 11.3 fL (7.4-10.4); Monocytes # 0.5 10^3/uL (0.2-0.9); Monocytes % 7.6 %; Neutrophils # 5.14 10^3/uL (1.8-7.7); Neutrophils % 79.2 %; Nucleated Red Blood Cells % 0 %; Platelet Count 174 10^3/cmm (130-400); Red Blood Count 3.02 10^6/uL (4.1-5.3); Red Cell Distribution Width 17.2 % (12.1-15.1); White Blood Count 6.5 10^3/uL (4.0-10.0)
[2021-08-23 06:34] LABS: Calcium 8.3 mg/dL (8.5-10.5)
[2021-08-23 06:35] LABS: Anion Gap 22.5 (5-19); Blood Urea Nitrogen 58 mg/dL (6-20); Calcium 8.4 mg/dL (8.5-10.5); Carbon Dioxide 20 mmol/L (22-29); Chloride 97 mmol/L (98-107); Ferritin 236 ng/mL (30-400); Glomerular Filtration Rate 9.6 mL/min (90-130); Glucose 88 mg/dL (65-115); Iron 24 ug/dL (59-158); Magnesium 2.3 mg/dL (1.7-2.3); Osmolality Calculated 294 mOsm/kg (285-295); Percent Saturation 10.8 % (20-50); Phosphorus 6.1 mg/dL (2.5-4.5); Potassium 5.5 mmol/L (3.5-5.1); Sodium 134 mmol/L (136-145); Total Iron Binding Capacity 222 mcg/dl; Unsaturated Iron Binding 198 ug/dL (112-347)
[2021-08-23 06:41] LABS: Parathyroid Hormone 197.8 pg/mL (15-65)
[2021-08-23 06:51] LABS: 25 Hydroxy Vitamin D 48 ng/mL (30-100)
--- NOTE | 2021-08-23 08:00 | USCV_ITS ---
Akil Velasco Age: 51 Gender: M : 1970 Exam Date: 08/23/2021 08:33 Ordering Phys: Godwin Torres DPM Technologist: Exam Location: 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 Normal resting TBIs bilaterally CONCLUSIONS No evidence of any significant arterial obstruction, based on the above findings. Dr Shirin Kendrick MD [facility] (Electronically Signed) Final Date: 24 August 2021 06:49 S
--- NOTE | 2021-08-23 09:46 | P.PN_ITS ---
Subjective Subjective: Interval history: feels weak, lethargic, sob Medications: Reviewed: Yes Medication Review Details: Current Medications Acetaminophen (Acetaminophen 325 Mg Tablet) 650 mg PO Q6H PRN PRN Reason: Mild/Mod Pain Or Temp >/= 101 Aspirin (Aspirin 81 Mg Ec Tablet) 81 mg PO QAM [facility] Last Admin: 08/23/21 05:24 Dose: Not Given Documented by: Atorvastatin Calcium (Atorvastatin 40 Mg Tablet) 40 mg PO DAILY [facility] Last Admin: 08/23/21 09:32 Dose: Not Given Documented by: Betamethasone Dipropionate (Betamethasone 0.05% Cream 15 Gm) 1 applic TOPICAL BID [facility] Bisacodyl (Bisacodyl 5 Mg Tablet) 10 mg PO DAILY PRN; Protocol PRN Reason: Constipation (see protocol) Calamine (Calamine Lotion 177 Ml Btl) 1 applic TOPICAL Q4H PRN PRN Reason: ITCHING Carvedilol (Carvedilol 6.25 Mg Tablet) 6.25 mg PO BID@0900,2100 [facility] Last Admin: 08/23/21 09:31 Dose: Not Given Documented by: Diphenhydramine HCl (Diphenhydramine 25 Mg Capsule) 25 mg PO Q6H PRN PRN Reason: ITCHING Last Admin: 08/22/21 23:31 Dose: 25 mg Documented by: Heparin Sodium (Porcine) (Heparin 5,000 Unit/Ml Inj 1 Ml) 5,000 unit SUBCUT Q12H [facility] Last Admin: 08/22/21 03:49 Dose: 5,000 unit Documented by: Albumin Human (Albumin) 12.5 gm in 50 mls @ 60 mls/hr IV PRN PRN PRN Reason: Hypotension and/or symptomatic Piperacillin Sod/Tazobactam (Sod 3.375 gm/ Sodium Chloride) 50 mls @ 12.5 mls/h r IV Q12H [facility]; Protocol Last Infusion: 08/23/21 04:00 Dose: Infused Documented by: Isosorbide Mononitrate (Isosorbide Mononitrate Er 60 Mg Tablet) 120 mg PO DAILY [facility] Last Admin: 08/23/21 09:32 Dose: Not Given Documented by: Multivitamins (D-Kmhxesn-Golpsxf C Tablet) 1 each PO DAILY [facility] Last Admin: 08/23/21 09:32 Dose: Not Given Documented by: Ondansetron HCl (Ondansetron 2 Mg/Ml Sdv 2 Ml) 4 mg IVP Q8H PRN PRN Reason: vomiting, or N/V if npo Prednisone (Prednisone 20 Mg Tablet) 40 mg PO DAILY [facility] Last Admin: 08/23/21 09:32 Dose: Not Given Documented by: Sodium Bicarbonate (Sodium Bicarbonate 650 Mg Tablet) 650 mg PO BID [facility] Last Admin: 08/23/21 09:32 Dose: Not Given Documented by: Tramadol HCl (Tramadol 50 Mg Tablet) 50 mg PO Q6H PRN PRN Reason: MODERATE PAIN Venlafaxine HCl (Venlafaxine Er (24hr) 75 Mg Capsule) 75 mg PO DAILY [facility] Last Admin: 08/23/21 09:32 Dose: Not Given Documented by: Vitals/I&O/Wt Last Vital Signs Temp 97.7 F 08/23/21 05:25 Pulse 79 08/23/21 08:00 Resp 18 08/23/21 08:00 BP 102/61 08/23/21 08:00 Pulse Ox 94 08/23/21 08:00 08/22/21 08/23/21 08/23/21 22:59 06:59 14:59 Intake Total 190 / 340.1 50 / 390.1 Balance 190 / 340.1 50 / 390.1 Weight last 48 hrs Weight 150.139 kg Weight 150.139 kg Physical Exam Narrative: EXAM NARRATIVE: uncomfortable, less sob vs noted heent- nc/at, eomi, anicteric neck supple lungs- dull, crackles heart- renee abd soft, nt, nd, ventral henrnia ext b/l edema, left foot bandaged LUE AVF w/ thrill and bruit skin- rash on legs, abd, chest neuro- a,a, o x3 Data : 08/23/21 05:09 08/23/21 05:09 Micro: Microbiology 08/21/21 22:20 Blood Culture - Preliminary Blood NEGATIVE TO DATE 08/21/21 22:20 Blood Culture - Preliminary Blood NEGATIVE TO DATE A&P Assessment and plan (1) ESRD (end stage renal disease) on dialysis: [address] [address] Consult Note Signed Patient: Akil Velasco MR#: [id number] : 1970 Age/Sex: 51 / M ADM Date: 08/22/21 Loc: [facility]? Room/Bed: 250-1 Encounter Date: 08/22/[address]: Paul Freeman MD Report Number: [id number] Providers/Reason For Consult Consulting Physician/Specialty*:?? domonique patel md/ telenephrology Reason for Consult*:?? ESRD Attending Physician:?? Paul Freeman MD ? Primary Care Provider:?? Sulma Wetzel MD ? History of Present Illness History of Present Illness Akil Velasco is a 51 year old male with past medical history of ESRD HD MWF, hypertension, diabetes, HFpEF , chronic respiratory failure on 2.5 L of oxygen at home.? The pt is here w/ rash, sob, and burning of skin. recent cellulitis and abx use Review of Systems General:?? Reports: 10 or more systems reviewed and unremarkable except in HPI and below Narrative:?? weak, rash, sob, leg pain, dm Medications/Allergies Home Medications ?Medication ?Instructions ?Recorded ?Confirmed ?Last Taken ?Type acetaminophen [Tylenol] 975 mg PO BID 10/04/20 08/18/21 04/25/21 06:30 History aspirin 81 mg PO QAM 10/04/20 08/18/21 04/25/21 06:30 H istory isosorbide mononitrate 120 mg PO DAILY 10/04/20 08/18/21 01/05/21 History sevelamer carbonate See Rx Instructions .ROUTE .COMPLEX 11/11/2007/3101/05/21 History sodium bicarbonate 650 mg PO BID 11/11/20 08/18/21 04/25/21 Hist ory RenaPlex-D 1 tab PO DAILY 04/25/21 08/18/21 Unknown His tory carvedilol 25 mg PO BID 04/25/21 08/18/21 04/25/21 06:30 H istory venlafaxine 75 mg PO DAILY 04/25/21 08/18/21 Unknown His tory atorvastatin 40 mg PO DAILY #0 tab 04/27/21 08/18/21 01/04/21 R x ofloxacin 0.3 % eye drops 2 drp OTIC (EAR) ONCE PRN #10 ml 08/16/21 0 08/18/21 Unknown Rx Wheel Chair #1 ea 08/18/21 08/18/21 Unknown Rx Allergies Allergy/AdvReac Type Severity Reaction Status Date / Time ciprofloxacin [From Cipro] AdvReac Severe Tendonitis Verified 08/18/21 12:02 Current Medications Generic Name Dose Route Start Last Admin ? Trade Name Freq? PRN Reason Stop Dose Admin Aspirin ?81 mg ?08/22/21 06:00 ?08/22/21 05:42 ? Aspirin 81 Mg Ec Tablet ?PO ? ?81 mg ? ?QAM [place] ? ?Administration Heparin Sodium (Porcine) ?5,000 unit ?08/22/21 03:00 ?08/22/21 03:49 ? Heparin 5,000 Unit/Ml Inj 1 Ml ?SUBCUT ? ?5,000 unit ? ?Q12H [place] ? ?Administration PFSH Acute PFSH:?? Medical History? Accelerated hypertension Acute on chronic diastolic (congestive) heart failure Acute respiratory failure with hypoxia Acute respiratory failure with hypoxia and hypercapnia [id number]-[id number] kidney injury Anasarca Anemia Anemia ARDS (adult respiratory distress syndrome) Cancer Cardiac arrest Cataract (lens) fragments in eye following cataract surgery, bilateral CHF (congestive heart failure), NYHA class III Chronic kidney disease Chronic kidney disease, stage IV (severe) Chronic respiratory failure with hypoxia and hypercapnia CKD stage 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 Congestive cardiac failure COPD (chronic obstructive pulmonary disease) Diabetes Diabetes Elevated troponin End stage renal disease on dialysis Fracture of fifth metatarsal bone of left foot Fracture of fourth metatarsal bone of left foot Heart failure Hypertension Hypertension Laceration Metabolic alkalosis Morbid obesity with BMI of 40.0-44.9, adult Neuropathy Obesity hypoventilation syndrome Obstructive sleep apnea Pneumonia due to 2018- PVD (peripheral vascular disease) Renal cell carcinoma History bilateral renal cell carcinoma 2007 then recurrence on the contralateral side 2011.? No recurrence for long-term follow-up with some suspicion on CT scan April 2020.Respiratory failure with hypoxia and hypercapnia Restrictive lung disease Sinus bradycardia Syncope Type 2 diabetes mellitus with diabetic polyneuropathy Urinary retention ??Surgical History? H/O partial nephrectomy bilateralH/O wisdom tooth extraction Hx of lymph node excision ??Family History? Father?? ,? AT AGE 65 DiabetesCancer?? ? Metastatic prostate cancer to liverMother?? ,? AT AGE 72 DiabetesGrandfather DiabetesCancerOther Hyperlipidemia ? Social History? Second hand smoke exposure:? Yes Smoking risk assessment/counseling performed?:? Yes Alcohol intake:? current Alcohol intake frequency: holidays/special occasions only Lives independently:? Yes Household members:? spouse Housing:? House Marital status:? service:? No Current occupational status:? retired Pets and animals:? Yes History of recent travel:? No Current gender identity:? Male ? Vitals/I&O/Wt Last Vital Signs Temp ?98.6 F ?08/22/21 07:51 Pulse ?67 ?08/22/21 07:51 Resp ?18 ?08/22/21 07:51 BP ?114/65 ?08/22/21 07:51 Pulse Ox ?90 ?08/22/21 07:51 Weight last 48 hrs Weight? 150.139 kg? Physical Exam Narrative:?? EXAM NARRATIVE: uncomfortable, sob on o2 vs noted heent- nc/at, eomi, anicteric neck supple lungs- wheezes, crackles heart- renee abd soft, nt, nd, ventral henrnia ext b/l edema, left foot bandaged LUE AVF w/ thrill and bruit skin- rash on legs, abd, chest neuro- a,a, o x3 Data Micro:?? Micro:?Microbiology ?08/21/21 22:20 ? ? Blood Culture - Pr ? eliminary ?Blood ? SPECIMEN COLLEC ? LIU ?08/21/21 22:20 ? ? Blood Culture - Pr ? eliminary ?Blood ? SPECIMEN COLLEC ? LIU ? A&P Additional A&P Information 51 yr old man with past medical history of hypertension, diabetes , end-stage renal disease dependent( MWF ), HFpEF , chronic respiratory failure on 2.5 L of oxygen at home 1. ESRD- s/p HD this am- repeat hd in am 3.5 hrs, 2k bth, l 2. anemia- monitor hgb- iv iron and epo 3. rash- Per pt -Q STEROIDS 4. phos binder 5. left heal ulcer for bone bx today seen and examined w/ RN- telehealth visit Status: Acute Plan see above time spent 30 min seen and examined w/ RN- telehealth visit Attestations Medical Necessity Statement*: esrd, foot infection, rash, resp acidosis Time Spent in Patient Care: 16 - 35 minutes (>than 50% of time spent in counselling and/or direct pt care on unit) . Coding Level of Care Code Acute Home Therapy Clinician for Patricia Fwd Diagnoses ESRD (end stage renal disease) on dialysis N18.6; Z99.2
[2021-08-23] MEDS: betamethasone 0.05% Cream 15 gm 1 APPLIC TOPICAL ×2 (10:50→17:23)
[2021-08-23 11:27] LABS: Glucose Point of Care 103 mg/dL (70-110)
[2021-08-23 11:35] LABS: Glucose Point of Care 90 mg/dL (70-110)
--- NOTE | 2021-08-23 11:50 | W.PM.OPSUD ---
Surgery/Procedure H&P Update DATE OF PROCEDURE: August 23, 2021 DATE H&P PERFORMED: 08/22/21 CHANGES TO PREVIOUS DOCUMENTATION: No PRIMARY INDICATION FOR PROCEDURE: Infected diabetic foot ulcer left foot PLANNED PROCEDURE: Operation Date: 08/23/21 12:10 Proposed Procedures p Incision And Drainage left foot with bone culture(Left) - Godwin Torres DPM
--- NOTE | 2021-08-23 12:02 | PM.OP ---
Operative Report Date of procedure: August 23, 2021 Pre-op diagnosis: Diabetic foot infection left foot Post-op diagnosis: Osteomyelitis left fifth metatarsal Post-op findings: Left foot wound probed directly to fifth metatarsal base Procedure done: Incision of bone cortex left foot Implants: None Specimens removed/disposition: Soft tissue left diabetic foot ulcer sent to microbiology for Gram stain and culture. Second culture from incision of cortex at the inferior aspect of the left fifth metatarsal base sent to microbiology for Gram stain and culture. Pathology: None Surgeon: Godwin Torres D.P.M. Hot Tar Roofer Helper: Rachel Estimated blood loss: 5 10 IV fluids: 0 Urine output: 0 Complications: None Brief History: Patient has had a wound for greater than 6 months to the left foot subfifth metatarsal head are some lytic changes on x-ray. Recommended surgical debridement of the wound, recommend incision down to bone cortex for possible bone biopsy to help guide antibiotic therapies. Patient is agreeable wishes to proceed. Procedure: Under mild sedation the patient was brought to the operating room and remained on the gurney in supine position. A timeout was performed. Anesthesia was then administered by the anesthesia service. Local anesthesia injected by myself 30 cc of one-to-one mixture 1% lidocaine and 0.5% Marcaine plain and a left reverse Velasco block fashion. Well-padded pneumatic tourniquet applied to the left ankle. The left foot was then scrubbed, prepped and draped utilizing normal aseptic technique. No Esmarch bandage was utilized, no examination performed due to infection. The tourniquet was inflated to 250 mmHg. Attention was directed to the ulceration of the left foot this was located at the plantar aspect of the left forefoot subfifth metatarsal base. Predebridement measurements 3 cm x 2 cm x 1 cm. Wound was debrided sharply of devitalized epidermis, dermis, subcutaneous tissue, muscle and fascia sharply and this was passed from operative field, soft tissue was sent to microbiology for Gram stain and culture. The wound extended directly to bone this probe directly to the inferior aspect of the fifth metatarsal base of the left foot. Incision of cortex of the fifth metatarsal base was performed and a bone sample was sent to microbiology as a bone culture for Gram stain and sensitivity. Copious amounts of sterile saline solution and lavage were performed at the wound. Post debridement wound measurements 3.4 cm x 2.8 cm x 1.3 cm with a dressing of saline wet-to-dry, sterile 4 x 4's, Kerlix and 4 inch Mikhail wrap. Tourniquet was deflated and a prompt hyperemic response was noted to the distal digits of the left foot. Patient tolerated the procedure and anesthesia well and was transferred to the PACU with vital signs stable and vascular status intact. Following a period of postoperative monitoring he will be transferred back to the floor will continue empiric IV antibiotics, will just accordingly once cultures reveal further information. Patient is to remain nonweightbearing and elevate his left foot.
--- NOTE | 2021-08-23 12:18 | ANES.PREANE2 ---
Pre-Anesthetic Assessment Height/Weight: Height 1.85 m Weight 150.139 kg Temp Pulse Resp BP Pulse Ox 97.7 F 69 17 153/69 99 08/23/21 05:25 08/23/21 10:49 08/23/21 10:49 08/23/21 10:49 08/23/21 10:49 Operation Date: 08/23/21 12:10 Proposed Procedures p Incision And Drainage left foot with bone culture(Left) - LUIS PardoM Was Beta Adalgisa taken within 24 hours: Yes Was Clonidine taken within 24 hours: N/A Social No alcohol and No tobacco Airway Submandibular: within normal limits Cervical ROM: within normal limits Mallampati: Class II Dentition: chipped Comments: Comments: Very poor dentition CV/HEM Arrythmia (1st deg AV blk) and Hypertension Chronic Renal Failure Metabolic Diabetes Mellitus (very poorly controlled) and Morbid Obesity hyperkalemia, met alkalosis Anesthetic Plan ASA status: 4 Anesthesia: MAC Medications/Allergies Home Medications Medication Instructions Recorded Confirmed Last Taken Type aspirin 81 mg tablet,delayed 81 mg PO QAM 10/04/20 08/22/21 04/25/21 06:30 History release isosorbide mononitrate 120 mg 120 mg PO DAILY 10/04/20 08/22/21 01/05/21 History tablet,extended release 24 hr sevelamer carbonate 800 mg tablet See Rx Instructions .ROUTE .COMPLEX 11/11/20 08/22/21 01/05/21 History sodium bicarbonate 650 mg tablet 650 mg PO TID 11/11/20 08/22/21 04/25/21 History carvedilol 25 mg tablet 25 mg PO BID 04/25/21 08/22/21 04/25/21 06:30 History venlafaxine 75 mg capsule,extended 75 mg PO DAILY 04/25/21 08/22/21 Unknown History release 24 hr vit B,C-folic ac 800 mcg-zinc 12.5 1 tab PO DAILY 04/25/21 08/22/21 Unknown History mg-selen-D3 2,000 unit-vit E tablet (RenaPlex-D) ofloxacin 0.3 % eye drops 2 drp OTIC (EAR) ONCE PRN #10 ml 08/16/21 08/22/21 Unknown Rx Wheel Chair #1 ea 08/18/21 08/22/21 Unknown Rx acetaminophen 500 mg tablet 500 mg PO Q6H PRN 08/22/21 08/22/21 Unknown History amlodipine 10 mg tablet 10 mg PO DAILY 08/22/21 08/22/21 Unknown History amoxicillin 875 mg-potassium 1 tab PO BID 08/22/21 08/22/21 Unknown History clavulanate 125 mg tablet atorvastatin 80 mg tablet 80 mg PO BEDTIME 08/22/21 08/22/21 Unknown History brexpiprazole 0.25 mg tablet 0.25 mg PO DAILY 08/22/21 08/22/21 Unknown History (Rexulti) bumetanide 2 mg tablet See Rx Instructions .ROUTE .COMPLEX 08/22/21 08/22/21 Unknown History clonazepam 0.5 mg tablet 0.5 mg PO BID 08/22/21 08/22/21 Unknown History clonidine HCl 0.2 mg tablet 0.2 mg PO TID 08/22/21 08/22/21 Unknown History diazepam 5 mg tablet See Rx Instructions .ROUTE .COMPLEX 08/22/21 08/22/21 Unknown History diphenhydramine HCl 25 mg capsule 25 mg PO Q6H PRN 08/22/21 08/22/21 Unknown History (Benadryl) gabapentin 300 mg capsule 300 mg PO DAILY PRN 08/22/21 08/22/21 Unknown History hydralazine 100 mg tablet 100 mg PO Q8H 08/22/21 08/22/21 Unknown History hydroxyzine pamoate 25 mg capsule 25 mg PO DAILY PRN 08/22/21 08/22/21 Unknown History insulin aspart U-100 100 unit/mL See Rx Instructions .ROUTE .COMPLEX 08/22/21 08/22/21 Unknown History subcutaneous solution (Novolog U-100 Insulin aspart) insulin glargine 100 unit/mL See Rx Instructions .ROUTE .COMPLEX 08/22/21 08/22/21 Unknown History subcutaneous solution (Lantus U-100 Insulin) lidocaine-prilocaine 2.5 %-2.5 % 1 applic TOPICAL . DIRECTED 08/22/21 08/22/21 Unknown History topical cream losartan 50 mg tablet 50 mg PO DAILY 08/22/21 08/22/21 Unknown History metronidazole 500 mg tablet 500 mg PO TID 08/22/21 08/22/21 Unknown History mupirocin 2 % topical ointment See Rx Instructions .ROUTE .COMPLEX 08/22/21 08/22/21 Unknown History ropinirole 0.25 mg tablet 0.25 mg PO BEDTIME 08/22/21 08/22/21 Unknown History sodium zirconium cyclosilicate 5 See Rx Instructions .ROUTE .COMPLEX 08/22/21 08/22/21 Unknown History gram oral powder packet (Lokelma) trazodone 50 mg tablet 50 mg PO BEDTIME PRN 08/22/21 08/22/21 Unknown History triamcinolone acetonide 0.1 % 1 applic TOPICAL BID PRN 08/22/21 08/22/21 Unknown History topical ointment Allergies Allergy/AdvReac Type Severity Reaction Status Date / Time dextrose 5 % in water Allergy tendonitis Verified 08/22/21 10:53 [From Zyvox] linezolid [From Zyvox] Allergy tendonitis Verified 08/22/21 10:53 ciprofloxacin [From Cipro] AdvReac Severe Tendonitis Verified 08/18/21 12:02 Current Medications Generic Name Dose Route Start Last Admin Trade Name Freq PRN Reason Stop Dose Admin Aspirin 81 mg 08/22/21 06:00 08/23/21 05:24 Aspirin 81 Mg Ec Tablet PO Not Given QAM [facility] Atorvastatin Calcium 40 mg 08/22/21 09:00 08/23/21 09:32 Atorvastatin 40 Mg Tablet PO Not Given DAILY [place] Betamethasone Dipropionate 1 applic 08/23/21 09:00 08/23/21 10:50 Betamethasone 0.05% Cream 15 Gm TOPICAL 1 applic BID [place] Administration Carvedilol 6.25 mg 08/22/21 09:00 08/23/21 09:31 Carvedilol 6.25 Mg Tablet PO Not Given BID@0900,2100 [place] Diphenhydramine HCl 25 mg 08/22/21 14:08 08/22/21 23:31 Diphenhydramine 25 Mg Capsule PO 25 mg Q6H PRN Administration ITCHING Heparin Sodium (Porcine) 5,000 unit 08/22/21 03:00 08/22/21 03:49 Heparin 5,000 Unit/Ml Inj 1 Ml SUBCUT 5,000 unit Q12H [place] Administration Piperacillin Sod/Tazobactam 50 mls @ 12.5 mls/hr 08/22/21 12:30 08/23/21 04:00 Sod 3.375 gm/ Sodium Chloride IV Infused Q12H [facility] Infusion Protocol Isosorbide Mononitrate 120 mg 08/22/21 09:00 08/23/21 09:32 Isosorbide Mononitrate Er 60 Mg Tablet PO Not Given DAILY [facility] Multivitamins 1 each 08/22/21 09:00 08/23/21 09:32 E-Nxzzfrt-Urntnjc C Tablet PO Not Given DAILY [facility] Prednisone 40 mg 08/23/21 09:00 08/23/21 09:32 Prednisone 20 Mg Tablet PO Not Given DAILY [facility] Venlafaxine HCl 75 mg 08/22/21 09:00 08/23/21 09:32 Venlafaxine Er (24hr) 75 Mg Capsule PO Not Given DAILY [facility] PFSH Anesthesia Medical History Accelerated hypertension Acute on chronic diastolic (congestive) heart failure Acute respiratory failure with hypoxia Acute respiratory failure with hypoxia and hypercapnia Nlqwq-sh-kchnazz kidney injury Anasarca Anemia Anemia ARDS (adult respiratory distress syndrome) Cancer Cardiac arrest Cataract (lens) fragments in eye following cataract surgery, bilateral CHF (congestive heart failure), NYHA class III Chronic kidney disease Chronic kidney disease, stage IV (severe) Chronic respiratory failure with hypoxia and hypercapnia CKD stage 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 Congestive cardiac failure COPD (chronic obstructive pulmonary disease) Diabetes Diabetes Elevated troponin End stage renal disease on dialysis Fracture of fifth metatarsal bone of left foot Fracture of fourth metatarsal bone of left foot Heart failure History of renal cell carcinoma Hypertension Hypertension Laceration Metabolic alkalosis Morbid obesity with BMI of 40.0-44.9, adult Neuropathy Obesity hypoventilation syndrome Obstructive sleep apnea Pneumonia due to 2018-nCoV PVD (peripheral vascular disease) Renal cell carcinoma History bilateral renal cell carcinoma 2007 then recurrence on the contralateral side 2011. No recurrence for long-term follow-up with some suspicion on CT scan April 2020. Respiratory failure with hypoxia and hypercapnia Restrictive lung disease Sinus bradycardia Syncope Type 2 diabetes mellitus with diabetic polyneuropathy Urinary retention Surgical History H/O partial nephrectomy bilateral H/O wisdom tooth extraction Hx of lymph node excision Family History Father , AT AGE 65 Diabetes Cancer Metastatic prostate cancer to liver Mother , AT AGE 72 Diabetes Grandfather Diabetes Cancer Other Hyperlipidemia Social History Second hand smoke exposure: Yes Smoking risk assessment/counseling performed?: Yes Alcohol intake: current Alcohol intake frequency: holidays/special occasions only Lives independently: Yes Household members: spouse Housing: House Marital status: service: No Current occupational status: retired Pets and animals: Yes History of recent travel: No Current gender identity: Male Data Anesthesia : 08/23/21 05:09 08/23/21 05:09 Short CBC 08/21/21 08/22/21 08/23/21 Range/Units 22:11 05:59 05:09 WBC 7.2 8.1 6.5 (4.0-10.0) 10^3/uL Hgb 10.2 L 9.9 L 9.3 L (11.7-16.6) g/dL Hct 33.6 L 34.2 L 31.7 L (42.0-52.0) % MCV 103.1 H 107.5 H 105.0 H (80-94) fl Plt Count 172 196 174 (130-400) 10^3/cmm Neut % (Auto) 77.7 80.5 79.2 % Neut # (Auto) 5.61 6.49 5.14 (1.8-7.7) 10^3/uL BMP 08/21/21 08/22/21 08/23/21 22:11 05:59 05:09 Sodium 137 136 134 L Potassium 5.2 H 6.2 H 5.5 H Chloride 98 97 L 97 L Carbon Dioxide 20 L 23 20 L BUN 55 H 60 H 58 H Creatinine 5.5 H 6.3 H* 6.2 H* Glucose 152 H 162 H 88 Calcium 9.2 8.3 L 8.4 L Cardiac Enzymes 08/21/21 08/22/21 08/22/21 Range/Units 22:11 01:06 05:59 Troponin T Baseline 438 H* (0-15) ng/L Troponin T 120 Minute 396.4 H (0-15) ng/L Delta Troponin T -41.6 L (0-10) ABS# Troponin T Hi Sens 6Hr 400.0 H (0-15) ng/L Troponin T Hi Sens 6Hr Delta -38.0 L (0-12) ng/L Liver Function 08/21/21 Range/Units 22:11 Total Bilirubin 0.7 (0.15-1.2) mg/dL AST 20 (0-40) U/L ALT 19 (0-41) U/L Alkaline Phosphatase 149 H (40-130) IU/L Albumin 3.8 (3.5-5.2) g/dL COVID Results 08/21/21 22:15 Coronavirus 229E (PCR) Not detected SARS-CoV-2 (PCR) Not detected Coags 08/21/21 08/21/21 08/22/21 22:11 22:11 05:59 ESR 43 H PT 18.70 H INR 1.53 H APTT 31.7 Fibrinogen 428 Fibrin Degrad Products Neg, <10 D-Dimer 4.56 H C-Reactive Protein 26.8 H ABG 08/21/21 22:57 Specimen Type Arterial Sample Site Radial, left ABG pH 7.29 L ABG pCO2 53.8 H ABG pO2 59.7 L ABG HCO3 25.6 ABG Base Excess -1.4 O2 Delivery Device Nc O2 Liters/Min 3.0 Microbiology 08/21/21 22:20 Blood Culture - Preliminary Blood NEGATIVE TO DATE 08/21/21 22:20 Blood Culture - Preliminary Blood NEGATIVE TO DATE Cardiac Studies: Echocardiogram 11/13/20 Echocardiogram Limited Views 07/24/21 Echocardiogram Ultrasound 11/12/20 Sestamibi Stress Test (Cardiology) 08/14/19
[2021-08-23] MEDS: lidocaine 1% INJ 20 mL INJECTION (12:20)
--- NOTE | 2021-08-23 13:05 | ANE.PACU2 ---
Inpatient post-anesthesia follow up: Airway intact: Yes Vital signs: Temperature 98.0 F Pulse Rate 66 Respiratory Rate 16 Blood Pressure 125/62 Pulse Oximetry 97 Oxygen Delivery Me thod Simple Mask Oxygen Flow Rate 6 Fraction of Inspir ed Oxygen 65 Hydration adequate: Yes Nausea and vomiting: No Pain level: 1 Mental status: Baseline
--- NOTE | 2021-08-23 13:06 | XR_ITS ---
WS: [id number] Left foot, 3 views, 08/23/2021 Clinical Data: Status post wound debridement and bone biopsy the fifth Comparison: None. Findings: The deformity of the base of left fifth metatarsal from the local biopsy remains the same. There is s oft tissue swelling over the site. There is a dressing applied to the base of the left fifth metatars al. The remainder of the foot remains the same. XR/XR foot LT min 3V* [id number] Impression: No change in biopsy site at the base of left fifth metatarsal.
[2021-08-23 17:04] LABS: Glucose Point of Care 111 mg/dL (70-110)
[2021-08-23] MEDS: heparin 5,000 unit/mL INJ 1 mL 5000 UNIT SUBCUT (17:23)
[2021-08-23] MEDS: carvedilol 6.25 mg Tablet PO (20:13)
[2021-08-23] MEDS: TRAMadol 50 mg Tablet PO (20:13)
[2021-08-23 22:01] LABS: Glucose Point of Care 106 mg/dL (70-110)
[2021-08-24] VITALS (13 sets, daily range): BP systolic 104–140; BP diastolic 55–76; PULSE 61–79; RESP 14–22; TEMP 36.6–37; O2SAT 92–96
[2021-08-24] MEDS: piperacillin-tazobactam 3.375 GM in sodium chloride 0.9% (plus) 50 ML IV ×2 (04:32→15:28)
[2021-08-24] MEDS: heparin 5,000 unit/mL INJ 1 mL 5000 UNIT SUBCUT ×2 (04:32→15:28)
[2021-08-24] MEDS: aspirin 81 mg EC Tablet PO (05:34)
[2021-08-24 05:50] LABS: Basophils # 0.1 10^3/uL (0.0-0.1); Basophils % 0.9 %; Eosinophils # 0.5 10^3/uL (0.0-0.8); Eosinophils % 7.3 %; Hematocrit 31.7 % (42.0-52.0); Hemoglobin 9.3 g/dL (11.7-16.6); Lymphocytes # 0.5 10^3/uL (0.8-4.8); Lymphocytes % 6.7 %; Mean Corpuscular HGB Conc 29.3 g/dL (30.0-36.0); Mean Corpuscular Hemoglobin 29.9 pg (28.0-34.0); Mean Corpuscular Volume 101.9 fl (80-94); Mean Platelet Volume 10.9 fL (7.4-10.4); Monocytes # 0.9 10^3/uL (0.2-0.9); Monocytes % 12.8 %; Neutrophils # 4.83 10^3/uL (1.8-7.7); Neutrophils % 71.9 %; Nucleated Red Blood Cells % 0 %; Platelet Count 160 10^3/cmm (130-400); Red Blood Count 3.11 10^6/uL (4.1-5.3); White Blood Count 6.7 10^3/uL (4.0-10.0)
[2021-08-24 06:07] LABS: Anion Gap 22.4 (5-19); Blood Urea Nitrogen 51 mg/dL (6-20); Calcium 8.3 mg/dL (8.5-10.5); Carbon Dioxide 22 mmol/L (22-29); Chloride 95 mmol/L (98-107); Glomerular Filtration Rate 10.2 mL/min (90-130); Glucose 145 mg/dL (65-115); Osmolality Calculated 294 mOsm/kg (285-295); Potassium 5.4 mmol/L (3.5-5.1); Sodium 134 mmol/L (136-145)
[2021-08-24 06:41] LABS: Magnesium 2.3 mg/dL (1.7-2.3); Phosphorus 6.6 mg/dL (2.5-4.5)
--- NOTE | 2021-08-24 07:24 | PM.PN ---
Subjective Subjective: Interval history: 1 day status post surgical debridement of left foot ulceration, soft tissue culture as well as bone culture left fifth metatarsal. Dressings are clean and dry, no strikethrough bleeding. Patient denies any pain at the left foot. Tolerating regular diet. Patient denies any subjective nausea, vomiting, fever, chills or chest pain. Vitals/I&O/Wt Last Vital Signs Temp 98.2 F 08/24/21 04:00 Pulse 71 08/24/21 06:23 Resp 14 08/24/21 04:00 BP 139/74 08/24/21 04:00 Pulse Ox 93 08/24/21 06:23 08/23/21 08/24/21 08/24/21 22:59 06:59 14:59 Intake Total 410 / 410 140 / 550 Output Total 0 / 5 Balance 410 / 405 140 / 545 Weight last 48 hrs Weight 331 lb Physical Exam Narrative: EXAM NARRATIVE: Patient is alert and oriented ?3 and in no acute distress.? The following is a focused bilateral lower extremity exam. VASCULAR: Dorsalis pedis and posterior tibial arteries are palpable however diminished, DP is triphasic at the right, biphasic at the left.? PT is biphasic bilaterally.? Capillary refill time less than 3 seconds to the distal hallux bilaterally. Calf is supple and nontender proximally and distally.? Decreased pedal hair growth bilaterally.? +1 pitting edema to the left lower extremity, +2 at the right.? Rubor to bilateral legs. NEUROLOGICAL: Protective sensation intact 10/10 sites, tested with [place] monofilament to bilateral feet. DERMATOLOGICAL: Wound subfifth metatarsal base probes probes to bone, wound measures 3.4 cm x 2.8 cm x 1.3 cm, no periwound erythema or purulent drainage has fibrogranular base, 80% granular 27 fibrotic. Indurated skin at both legs, chronic skin pigmentation changes consistent with hemosiderin deposits due to chronic venous insufficiency. MUSCULOSKELETAL: No pain to palpation at left foot fourth and fifth metatarsals likely secondary to neuropathy.? Bony prominence of fifth metatarsal this is subtle, no breakdown of skin, no callus formation.? Reducible hammertoe deformities bilaterally 2 through 5. 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 Rashes on the extremities and abdomen. -No leukocytosis, patient is a febrile, elevated CRP 26.8 mg/L on August 21, 2021. ESR 43 on 08/22/2021 -Toe brachial index 1.0 on the right and 0.80 on the left, noncompressible vessels at the ankle unable to get accurate reading. Conclusions per cardiology report are that there are no significant arterial obstructions. -Wound left foot has been present since before February 2021, he has been noncompliant with offloading and weightbearing status at wound care previous wound culture taken April 07, 2021 shows Enterococcus and E. coli. -Wound was dressed today with silver alginate, sterile gauze, Kerlix and light 2 layer wrap. -Recommend nonweightbearing to left lower extremity this time, may heel touch for transfers. -Deep soft tissue culture as well as bone culture taken intraoperatively 08/23/2021, results pending. Patient okay for discharge from podiatry standpoint. Recommend follow-up in wound care clinic, he is already established in wound care, is actively being managed prior to this hospitalization with weekly visits, he is already undergoing hyperbaric oxygen therapy. Will collaborate with wound care once surgical cultures yield further information on antibiotic guidance long-term for osteomyelitis. Daily dressing changes per wound care clinic recommendations. Podiatry will follow Cell phone [phone] Attestations Medical Necessity Statement*: Diabetic foot ulcer with osteomyelitis left foot Coding Level of Care Code Acute Forensic Computer Examiner for [facility] Fwd Diagnoses CKD stage 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 E11.22; N18.3 Chronic venous insufficiency I87.2 Non-pressure chronic ulcer of other part of right foot with necrosis of muscle L97.513
[2021-08-24 07:32] LABS: Glucose Point of Care 143 mg/dL (70-110)
[2021-08-24] MEDS: predniSONE 20 mg Tablet 40 MG PO (09:07)
[2021-08-24] MEDS: isosorbide mononitrate ER 60 mg Tablet 120 MG PO (09:07)
[2021-08-24] MEDS: atorvastatin 40 mg Tablet PO (09:07)
[2021-08-24] MEDS: b-complex-vitamin c Tablet 1 EACH PO (09:07)
[2021-08-24] MEDS: venlafaxine ER (24HR) 75 mg Capsule PO (09:07)
[2021-08-24] MEDS: betamethasone 0.05% Cream 15 gm 1 APPLIC TOPICAL ×2 (09:09→17:18)
[2021-08-24] MEDS: carvedilol 6.25 mg Tablet PO ×2 (09:09→20:15)
--- NOTE | 2021-08-24 09:23 | P.PN_ITS ---
Subjective Subjective: Interval history: feels better. less sob. still swollen. no n/v/f/c/acosta/d Medications: Reviewed: Yes Medication Review Details: Current Medications Acetaminophen (Acetaminophen 325 Mg Tablet) 650 mg PO Q6H PRN PRN Reason: Mild/Mod Pain Or Temp >/= 101 Aspirin (Aspirin 81 Mg Ec Tablet) 81 mg PO QAM [facility] Last Admin: 08/23/21 05:24 Dose: Not Given Documented by: Atorvastatin Calcium (Atorvastatin 40 Mg Tablet) 40 mg PO DAILY [facility] Last Admin: 08/23/21 09:32 Dose: Not Given Documented by: Betamethasone Dipropionate (Betamethasone 0.05% Cream 15 Gm) 1 applic TOPICAL BID [facility] Bisacodyl (Bisacodyl 5 Mg Tablet) 10 mg PO DAILY PRN; Protocol PRN Reason: Constipation (see protocol) Calamine (Calamine Lotion 177 Ml Btl) 1 applic TOPICAL Q4H PRN PRN Reason: ITCHING Carvedilol (Carvedilol 6.25 Mg Tablet) 6.25 mg PO BID@0900,2100 [facility] Last Admin: 08/23/21 09:31 Dose: Not Given Documented by: Diphenhydramine HCl (Diphenhydramine 25 Mg Capsule) 25 mg PO Q6H PRN PRN Reason: ITCHING Last Admin: 08/22/21 23:31 Dose: 25 mg Documented by: Heparin Sodium (Porcine) (Heparin 5,000 Unit/Ml Inj 1 Ml) 5,000 unit SUBCUT Q12H [facility] Last Admin: 08/22/21 03:49 Dose: 5,000 unit Documented by: Albumin Human (Albumin) 12.5 gm in 50 mls @ 60 mls/hr IV PRN PRN PRN Reason: Hypotension and/or symptomatic Piperacillin Sod/Tazobactam (Sod 3.375 gm/ Sodium Chloride) 50 mls @ 12.5 mls/hr IV Q12H [facility]; Protocol Last Infusion: 08/23/21 04:00 Dose: Infused Documented by: Isosorbide Mononitrate (Isosorbide Mononitrate Er 60 Mg Tablet) 120 mg PO DAILY [facility] Last Admin: 08/23/21 09:32 Dose: Not Given Documented by: Multivitamins (R-Oxpbmpw-Tqwghlr C Tablet) 1 each PO DAILY [facility] Last Admin: 08/23/21 09:32 Dose: Not Given Documented by: Ondansetron HCl (Ondansetron 2 Mg/Ml Sdv 2 Ml) 4 mg IVP Q8H PRN PRN Reason: vomiting, or N/V if npo Prednisone (Prednisone 20 Mg Tablet) 40 mg PO DAILY [facility] Last Admin: 08/23/21 09:32 Dose: Not Given Documented by: Sodium Bicarbonate (Sodium Bicarbonate 650 Mg Tablet) 650 mg PO BID [facility] Last Admin: 08/23/21 09:32 Dose: Not Given Documented by: Tramadol HCl (Tramadol 50 Mg Tablet) 50 mg PO Q6H PRN PRN Reason: MODERATE PAIN Venlafaxine HCl (Venlafaxine Er (24hr) 75 Mg Capsule) 75 mg PO DAILY [facility] Last Admin: 08/23/21 09:32 Dose: Not Given Documented by: Vitals/I&O/Wt Last Vital Signs Temp 98.2 F 08/24/21 04:00 Pulse 71 08/24/21 06:23 Resp 14 08/24/21 04:00 BP 139/74 08/24/21 04:00 Pulse Ox 92 08/24/21 07:43 08/23/21 08/24/21 08/24/21 22:59 06:59 14:59 Intake Total 410 / 410 140 / 550 Output Total 0 / 5 Balance 410 / 405 140 / 545 Physical Exam Narrative: EXAM NARRATIVE: comfortable, less sob vs noted heent- nc/at, eomi, anicteric neck supple lungs- dull, crackles heart- renee abd soft, nt, nd, ventral henrnia ext b/l edema, left foot bandaged LUE AVF w/ thrill and bruit skin- rash on legs, abd, chest neuro- a,a, o x3 Data : 08/24/21 04:28 08/24/21 04:28 A&P Assessment and plan (1) ESRD (end stage renal disease) on dialysis: 51 yr old man with past medical history of hypertension, diabetes , end-stage renal disease dependent( MWF ), HFpEF , chronic respiratory failure on 2.5 L of oxygen at home 1. ESRD- s/p HD yest repeat hd now repeat hd in am 3.5 hrs, 2k bth, remove3 l 2. anemia- monitor hgb- iv iron and epo 3. rash- Per pt -Q STEROIDS 4. phos binder pth 198- good for ESRD 5. left heal ulcer for bone bx today seen and examined w/ RN- telehealth visit Status: Acute Plan see above time spent 30 min seen and examined w/ RN- telehealth visit Attestations Medical Necessity Statement*: esrd, volume overload, rash Time Spent in Patient Care: 16 - 35 minutes (>than 50% of time spent in counselling and/or direct pt care on unit) . Coding Level of Care Code Acute Cardiology Nurse Practitioner for [facility] Diagnoses ESRD (end stage renal disease) on dialysis N18.6; Z99.2
[2021-08-24] MEDS: ferric gluconate 125 MG in sodium chloride 0.9% (100 ml) 100 ML 110 MG IV (10:17)
--- NOTE | 2021-08-24 12:14 | PC.NURSE ---
pt in dialysis
[2021-08-24 12:29] LABS: Glucose Point of Care 135 mg/dL (70-110)
--- NOTE | 2021-08-24 12:32 | P.PN_ITS ---
Subjective Subjective: Interval history: Today my plan is to get PICC line placed, wound cultures are still pending, patient has agreed to stay get PICC line and wait for culture and sensitivity s tart IV antibiotics for osteomyelitis Vitals/I&O/Wt Last Vital Signs Temp 98.5 F 08/24/21 12:00 Pulse 63 08/24/21 12:00 Resp 22 H 08/24/21 12:00 BP 113/55 08/24/21 12:00 Pulse Ox 93 08/24/21 12:00 08/23/21 08/24/21 08/24/21 22:59 06:59 14:59 Intake Total 410 / 410 140 / 550 360 / 360 Output Total 0 / 5 Balance 410 / 405 140 / 545 360 / 360 Physical Exam Narrative: EXAM NARRATIVE: Patient is awake and alert Currently on 3 L nasal cannula Awake and alert nonfocal neuro exam Skin rash which is maculopapular rash exanthematous is improving No active sign of cellulitis Abdomen soft S1, S2 Bilateral breath sounds without adventitious rhonchi or crackles EOMI, PERRLA Data : 08/24/21 04:28 08/24/21 04:28 A&P Assessment and plan (1) Pulmonary edema: Status: Acute Qualifiers: Chronicity: acute Qualified Code(s): J81.0 - Acute pulmonary edema (2) Chronic venous insufficiency: Status: Acute (3) Non-pressure chronic ulcer of other part of right foot with necrosis of muscle: Status: Acute (4) Purpura: Status: Acute (5) Volume overload: Status: Acute (6) ESRD (end stage renal disease) on dialysis: Status: Acute (7) CHF (congestive heart failure), NYHA class III: Status: Acute (8) Diabetic ulcer of left foot: Status: Acute (9) ESRD on dialysis: Status: Acute (10) Osteomyelitis: Status: Acute (11) End stage renal disease on dialysis: Status: Acute Plan Volume overload with shortness of breath Improving, this morning he was saturating well on 3 L nasal cannula End-stage renal disease, appreciate nephro recommendations, patient is getting dialyzed as per the plan Left foot osteomyelitis status post surgical debridement of left foot ulceration, No active bleeding No active pain Cultures yesterday pending Culture sensitivities pending, continue broad-spectrum antibiotics for now Patient is agreed for PICC line placement today and wait for the cultures test results before his discharge ADAN without significant arterial disease Drug related rash improving with steroids Benadryl discontinued today Type 2 diabetes: Sliding scale DVT prophylaxis Heparin Full code Attestations Medical Necessity Statement*: Continue medical management will need IV antibiotics before discharge Coding Level of Care Code Established Pt Acute Associate Professor Of Education for [facility] Fwd Patient Type Established History Expanded Problem Focused Exam Expanded Problem Focused Medical Decision Making Moderate Complexity Diagnoses Pulmonary edema J81.0 Chronicity: acute Chronic venous insufficiency I87.2 Non-pressure chronic ulcer of other part of right foot with necrosis of muscle L97.513 Purpura D69.2 Volume overload E87.70 ESRD (end stage renal disease) on dialysis N18.6; Z99.2 CHF (congestive heart failure), NYHA class III I50.9 Diabetic ulcer of left foot E11.621; L97.529 ESRD on dialysis N18.6; Z99.2 Osteomyelitis M86.9 End stage renal disease on dialysis N18.6; Z99.2 Time Spent (min) 15
[2021-08-24] MEDS: epoetin alfa 1000 Unit/0.05 mL (ESRD) 20000 UNIT SUBCUT (17:15)
[2021-08-24 17:37] LABS: Glucose Point of Care 148 mg/dL (70-110)
[2021-08-24] MEDS: hyDROXYzine 25 mg Capsule PO (22:12)
[2021-08-24] MEDS: diphenhydrAMINE cream 30 gm 1 APPLIC TOPICAL (23:35)
[2021-08-25] VITALS (7 sets, daily range): BP systolic 136–173; BP diastolic 68–92; PULSE 71–82; RESP 15–20; TEMP 36.3–37; O2SAT 91–97
--- NOTE | 2021-08-25 00:12 | PC.NURSE ---
pt requested sleep aid tonight and phys was contacted and Vistaril was ordered. Pt then had c/o itching to the sores of upper body, and it was witnessed patient was uncomfortable and had itched a spot on the left shoulder till it smeared with blood. Calamine at bedside but pt stated not working to suppress itching anymore. Pt requested benadryl and i explained to patient of safety contraindication due to previous med given/sleep apnea and the inability of pt to wear bipap tonight due to improper mask fitting. (Respiratory in room numerous times to adjust fix and try different mask with no success -- see respiratory note) I told pt i would still contact phys to see if we could get something else. Phys ordered Nystatin. I also sent secured picture messages through [employer] to phys of open itchy areas at this time. Benadryl Itch Cream was ordered. In the interim of managing this patients care i spoke with the on the phone about plan and she was not satisfied. stated Well i guess ill have to bring him benadryl from home tomorrow for him to take . I explained the home med at bedside policy and was still upset. Tried to explain multiple times to the plan, and why things were being done this way and it was not well received. I concluded the conversation with the assuring her i was doing everything i could to take care of her . After the nystatin cream and benadryl itch cream were verified from pharmacy i applied them to the patient. At this time pt stated the the itching is getting better, i guess that pill(vistaril) finally kicked in . Finished up with patient and tucked him back into bed. Pt content with jello snack at this time. Will round in another hour to ensure patient remains comfortable or is asleep.
--- NOTE | 2021-08-25 00:26 | PC.NURSE ---
i reported high reps 20 to nurse
[2021-08-25] MEDS: piperacillin-tazobactam 3.375 GM in sodium chloride 0.9% (plus) 50 ML IV (03:48)
[2021-08-25] MEDS: heparin 5,000 unit/mL INJ 1 mL 5000 UNIT SUBCUT ×2 (03:48→16:27)
--- NOTE | 2021-08-25 03:53 | PC.RESP ---
I was in and out of the patient's room trying to get their bipap mask to stay on their face. I tried the Large mask and tried the full face mask but was unsuccessful. patient was no able to be kept on the bipap over night tonight.
--- NOTE | 2021-08-25 04:31 | PC.NURSE ---
Rounded on patient and noticed he was picking at the open areas on his arms/chest/ and legs to the point of bleeding. Despite this pt stated the itching was much better than earlier. Cleaned and dressed wounds on bilateral lower legs with optifoam. Educated patient on prolonged healing in this area due to condition of his legs, he acknowledged he understood. Cool rags were also offered throughout the night to attempt in soothing the itching - but the patient declined as he was unable to tolerate the coldness of the rags being that he is cold-natured. Gave patient warm wet rags to clean hands as well as sani-wipes to cleanse. Linens were changed as well. Brought pt two warm blankets and turned thermostat to 76 degrees. At the time i exited the room the patient was comfortable and appreciative.
--- NOTE | 2021-08-25 04:53 | PC.NURSE ---
Patient complained of itching i offered him so of his calamine lotion he told me he already had it but on I said ok well what else would you like to try he didnt say anything staff offered wet warm or cold yue/rags he said no because he was cold enough already then he had called his family and they call the nurses station and said we should try this and the nurse told him we did he was refusing it and then staff walked back into his room and he was on the phone with his family then and he put them on speaker and said here you talk to my family so I did and it was the same thing i had already said he didnt try till staff went in there and he was on the phone with them then and so we tried the cold towel rag and he had taken it off before i had ever left the room said he was to cold try something else.
--- NOTE | 2021-08-25 05:34 | PC.NURSE ---
Pt had a great night, moderate drip all night with no issues -- remained light red, no clots, no need for irrigation. Turned to a mild drip this morning after output turned pale yellow. About a bag and a quarter used tonight with over 750mls urine output approximately . Will chart exact values closer to end of shift.
[2021-08-25] MEDS: aspirin 81 mg EC Tablet PO (06:14)
[2021-08-25] MEDS: diphenhydrAMINE cream 30 gm 1 APPLIC TOPICAL (06:16)
[2021-08-25 06:28] LABS: Glucose Point of Care 167 mg/dL (70-110)
--- NOTE | 2021-08-25 06:29 | PC.NURSE ---
Checked in with patient, gave him morning meds, as well as applied more topical benadryl cream to itchy areas. Will ask phys if we can do benadryl PO today per patient request. Pt also very restless, wheelchair offered for patient to be able to get out of the room for a little bit and offer accepted. Will work on these things now.
[2021-08-25 06:40] LABS: Basophils % 0.5 %; Eosinophils # 0.1 10^3/uL (0.0-0.8); Eosinophils % 2.2 %; Hematocrit 34.2 % (42.0-52.0); Lymphocytes # 0.4 10^3/uL (0.8-4.8); Lymphocytes % 7.3 %; Mean Corpuscular HGB Conc 29.2 g/dL (30.0-36.0); Mean Corpuscular Hemoglobin 30.5 pg (28.0-34.0); Mean Corpuscular Volume 104.3 fl (80-94); Mean Platelet Volume 10.1 fL (7.4-10.4); Monocytes # 0.6 10^3/uL (0.2-0.9); Monocytes % 9.5 %; Neutrophils # 4.61 10^3/uL (1.8-7.7); Neutrophils % 79.8 %; Nucleated Red Blood Cells % 0 %; Platelet Count 148 10^3/cmm (130-400); Red Blood Count 3.28 10^6/uL (4.1-5.3); Red Cell Distribution Width 16.2 % (12.1-15.1); White Blood Count 5.8 10^3/uL (4.0-10.0)
[2021-08-25] MEDS: diphenhydrAMINE 25 mg Capsule PO (06:46)
[2021-08-25 06:52] LABS: Anion Gap 22.2 (5-19); Blood Urea Nitrogen 41 mg/dL (6-20); Calcium 8.5 mg/dL (8.5-10.5); Carbon Dioxide 23 mmol/L (22-29); Chloride 93 mmol/L (98-107); Glucose 154 mg/dL (65-115); Osmolality Calculated 289 mOsm/kg (285-295); Potassium 5.2 mmol/L (3.5-5.1); Sodium 133 mmol/L (136-145)
[2021-08-25 07:20] LABS: Magnesium 2.2 mg/dL (1.7-2.3); Phosphorus 5.5 mg/dL (2.5-4.5)
[2021-08-25] MEDS: betamethasone 0.05% Cream 15 gm 1 APPLIC TOPICAL ×2 (09:00→18:03)
[2021-08-25] MEDS: carvedilol 6.25 mg Tablet PO ×2 (09:16→23:25)
[2021-08-25] MEDS: atorvastatin 40 mg Tablet PO (09:16)
[2021-08-25] MEDS: venlafaxine ER (24HR) 75 mg Capsule PO (09:16)
[2021-08-25] MEDS: b-complex-vitamin c Tablet 1 EACH PO (09:16)
[2021-08-25] MEDS: isosorbide mononitrate ER 60 mg Tablet 120 MG PO (09:16)
[2021-08-25] MEDS: predniSONE 20 mg Tablet 40 MG PO (09:16)
[2021-08-25] MEDS: nystatin cream 30 gm 1 APPLIC TOPICAL ×2 (09:19→18:01)
--- NOTE | 2021-08-25 09:22 | PM.PN ---
Subjective Subjective: Interval history: weak, rash, swollen. left foot ulcer. bp elevated Medications: Reviewed: Yes Medication Review Details: Current Medications Acetaminophen (Acetaminophen 325 Mg Tablet) 650 mg PO Q6H PRN PRN Reason: Mild/Mod Pain Or Temp >/= 101 Aspirin (Aspirin 81 Mg Ec Tablet) 81 mg PO QAM [facility] Last Admin: 08/25/21 06:14 Dose: 81 mg Documented by: Atorvastatin Calcium (Atorvastatin 40 Mg Tablet) 40 mg PO DAILY [facility] Last Admin: 08/25/21 09:16 Dose: 40 mg Documented by: Betamethasone Dipropionate (Betamethasone 0.05% Cream 15 Gm) 1 applic TOPICAL BID [facility] Last Admin: 08/24/21 17:18 Dose: 1 applic Documented by: Bisacodyl (Bisacodyl 5 Mg Tablet) 10 mg PO DAILY PRN; Protocol PRN Reason: Constipation (see protocol) Calamine (Calamine Lotion 177 Ml Btl) 1 applic TOPICAL Q4H PRN PRN Reason: ITCHING Last Admin: 08/24/21 17:19 Dose: 1 applic Documented by: Carvedilol (Carvedilol 6.25 Mg Tablet) 6.25 mg PO BID@0900,2100 [facility] Last Admin: 08/25/21 09:16 Dose: 6.25 mg Documented by: Epoetin Zachary (Epoetin Zachary 1000 Unit/0.05 Ml (Esrd)) 20,000 unit SUBCUT QMWF [facility] Last Admin: 08/24/21 17:15 Dose: 20,000 unit Documented by: Heparin Sodium (Porcine) (Heparin 5,000 Unit/Ml Inj 1 Ml) 5,000 unit SUBCUT Q12H [facility] Last Admin: 08/25/21 03:48 Dose: 5,000 unit Documented by: Albumin Human (Albumin) 12.5 gm in 50 mls @ 60 mls/hr IV PRN PRN PRN Reason: Hypotension and/or symptomatic Piperacillin Sod/Tazobactam (Sod 3.375 gm/ Sodium Chloride) 50 mls @ 12.5 mls/hr IV Q12H [facility]; Protocol Last Infusion: 08/25/21 09:20 Dose: Infused Documented by: Ferric Sodium Gluconate 125 mg (/ Sodium Chloride) 110 mls @ 110 mls/hr IV Q24H [facility] Stop: 08/31/21 10:29 Last Infusion: 08/24/21 11:17 Dose: Infused Documented by: Isosorbide Mononitrate (Isosorbide Mononitrate Er 60 Mg Tablet) 120 mg PO DAILY [facility] Last Admin: 08/25/21 09:16 Dose: 120 mg Documented by: Multivitamins (J-Uzeihbb-Cgwugpm C Tablet) 1 each PO DAILY [facility] Last Admin: 08/25/21 09:16 Dose: 1 each Documented by: Nystatin (Nystatin Cream 30 Gm) 1 applic TOPICAL BID [facility] Last Admin: 08/25/21 09:19 Dose: 1 applic Documented by: Ondansetron HCl (Ondansetron 2 Mg/Ml Sdv 2 Ml) 4 mg IVP Q8H PRN PRN Reason: vomiting, or N/V if npo Prednisone (Prednisone 20 Mg Tablet) 40 mg PO DAILY [facility] Last Admin: 08/25/21 09:16 Dose: 40 mg Documented by: Tramadol HCl (Tramadol 50 Mg Tablet) 50 mg PO Q6H PRN PRN Reason: MODERATE PAIN Last Admin: 08/23/21 20:13 Dose: 50 mg Documented by: Venlafaxine HCl (Venlafaxine Er (24hr) 75 Mg Capsule) 75 mg PO DAILY [facility] Last Admin: 08/25/21 09:16 Dose: 75 mg Documented by: Zinc Acetate/Diphenhydramine (Diphenhydramine Cream 30 Gm) 1 applic TOPICAL Q4H PRN PRN Reason: ITCHING Last Admin: 08/25/21 06:16 Dose: 1 applic Documented by: Vitals/I&O/Wt Last Vital Signs Temp 98.1 F 08/25/21 06:58 Pulse 71 08/25/21 06:58 Resp 17 08/25/21 06:58 BP 173/92 08/25/21 06:58 Pulse Ox 92 08/25/21 06:58 08/24/21 08/25/21 08/25/21 22:59 06:59 14:59 Intake Total 359 / 879 400 / 1279 50 / 50 Output Total 3300 / 3300 300 / 3600 Balance -2941 / -2421 100 / -2321 50 / 50 Weight last 48 hrs Weight 155.4 kg Physical Exam Narrative: EXAM NARRATIVE: sob in bed vs noted heent- nc/at, eomi, anicteric neck supple lungs- dull, crackles b/l heart- renee, + s1, s2 abd soft, nt, nd, ventral henrnia ext b/l edema, left foot bandaged LUE AVF w/ thrill and bruit skin- rash on legs, abd, chest neuro- a,a, o x3 Data : 08/25/21 05:57 08/25/21 05:57 Micro: Microbiology 08/23/21 12:34 Gram Stain - Final Foot - #1 Tissue Culture - Preliminary 08/23/21 12:34 Gram Stain - Final Other Source Wound Culture - Preliminary 08/22/21 14:18 Wound Culture - Preliminary Foot Left Gram Negative Rods A&P Assessment and plan (1) ESRD (end stage renal disease) on dialysis: 51 yr old man with past medical history of hypertension, diabetes , end-stage renal disease dependent( MWF ), HFpEF , chronic respiratory failure on 2.5 L of oxygen at home 1. ESRD- s/p HD yest repeat hd now 3.5 hrs, 2k bth, remove3 l 2. anemia- monitor hgb- iv iron as tsat 11%, ferritin 236 -epo as needed 3. rash- steroids, benadryl, nystatin, calamine lotion Per medicine 4. phos binder pth 198- good for ESRD 5. left heal ulcer- f/u cx - gram neg rods 6. DM control 7. htn- 8. hyponatremia - monitor w/ hd. fluid restrict seen and examined w/ RN- telehealth visit Status: Acute Plan see above time spent 30 min seen and examined w/ RN- telehealth visit Attestations Medical Necessity Statement*: htn, esrd, foot ulcer Time Spent in Patient Care: 16 - 35 minutes (>than 50% of time spent in counselling and/or direct pt care on unit). Coding Level of Care Code Acute Language Translator for g Fwd Diagnoses ESRD (end stage renal disease) on dialysis N18.6; Z99.2
[2021-08-25 11:51] LABS: Glucose Point of Care 178 mg/dL (70-110)
[2021-08-25] MEDS: diphenhydrAMINE 50 mg Capsule PO ×2 (12:38→21:30)
[2021-08-25] MEDS: ondansetron 2 mg/ML SDV 2 mL 4 MG IVP (12:46)
[2021-08-25 13:23] LABS: Glucose Point of Care 210 mg/dL (70-110)
--- NOTE | 2021-08-25 16:04 | PM.PN ---
Subjective Subjective: Interval history: Patient is complaining of pruritic skin rash I have asked him to use emollient, keep using calamine lotion and oil Shortness of breath and confusion has improved Culture and sensitivity reviewed, Pseudomonas:- cefepime sensitive Discontinue Zosyn PICC line to be placed did 2 family meetings today Vitals/I&O/Wt Last Vital Signs Temp 97.4 F L 08/25/21 15:29 Pulse 73 08/25/21 15:29 Resp 15 08/25/21 15:29 BP 154/82 08/25/21 15:29 Pulse Ox 96 08/25/21 15:29 08/25/21 08/25/21 08/25/21 06:59 14:59 22:59 Intake Total 400 / 1279 290 / 290 Output Total 300 / 3600 Balance 100 / -2321 290 / 290 Weight last 48 hrs Weight 155.4 kg Physical Exam Narrative: EXAM NARRATIVE: Patient was sitting at the bedside Saturating well on 3 to nasal cannula Skin rash borders seem to be improving, he has calamine lotion on, morbilliform rash improving, no active sign of cellulitis No active mucosal ulcers Nonfocal neuro exam Abdomen soft distended, without hernia No active shortness of breath No active chest pain Data : 08/25/21 05:57 08/25/21 05:57 Micro: Microbiology 08/23/21 12:34 Gram Stain - Final Foot - #1 Tissue Culture - Preliminary 08/23/21 12:34 Gram Stain - Final Other Source Wound Culture - Preliminary Pseudomonas aeruginosa 08/22/21 14:18 Wound Culture - Preliminary Foot Left Pseudomonas aeruginosa A&P Assessment and plan (1) Osteomyelitis: Status: Acute (2) Non-pressure chronic ulcer of other part of right foot with necrosis of muscle: Status: Acute (3) Chronic venous insufficiency: Status: Acute (4) Pulmonary edema: Status: Acute Qualifiers: Chronicity: acute Qualified Code(s): J81.0 - Acute pulmonary edema (5) Volume overload: Status: Acute (6) ESRD (end stage renal disease) on dialysis: Status: Acute (7) ESRD on dialysis: Status: Acute (8) Diabetic ulcer of left foot: Status: Acute Plan Left foot osteomyelitis, bone cultures growing Pseudomonas sensitive to penicillin and cephalosporins, I will give him cefepime 1 g today renally dosed, 500mg after every HD session 6 weeks No sign of peripheral arterial disease Set up home health services , PICC line to be placed drug-induced rash morbilliform rash Continue Benadryl, steroids at the time of 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 Dosepak and dermatology clinic follow-up patient does not have Reinaldo Gary on TEN no mucosal ulcer This most likely is related to vancomycin Patient has been taking Augmentin for quite some time and rash appeared after use of vancomycin on Sunday Rashes improving, no active signs cellulitis Continue topical betamethasone Renal HD diet Full code dvt Heparin Attestations Medical Necessity Statement*: DC AFTR PICC PLACEMENT Time Spent in Patient Care: 20 mins Coding Level of Care Code Acute Alcohol Still Operator for Chg Fwd Diagnoses Osteomyelitis M86.9 Non-pressure chronic ulcer of other part of right foot with necrosis of muscle L97.513 Chronic venous insufficiency I87.2 Pulmonary edema J81.0 Chronicity: acute Volume overload E87.70 ESRD (end stage renal disease) on dialysis N18.6; Z99.2 ESRD on dialysis N18.6; Z99.2 Diabetic ulcer of left foot E11.621; L97.529
[2021-08-25] MEDS: petrolatum oint Pkt 5 gm 1 APPLIC TOPICAL ×3 (16:29→23:55)
[2021-08-25 17:20] LABS: Glucose Point of Care 215 mg/dL (70-110)
[2021-08-25] MEDS: insulin lispro 100 unit/1 mL SUBCUT (18:00)
[2021-08-25] MEDS: ferric gluconate 125 MG in sodium chloride 0.9% (100 ml) 100 ML 110 MG IV (18:13)
[2021-08-25 21:16] LABS: Glucose Point of Care 185 mg/dL (70-110)
[2021-08-26 00:24] VITALS: PULSE 80; RESP 22; O2SAT 99
[2021-08-26] MEDS: petrolatum oint Pkt 5 gm 1 APPLIC TOPICAL ×2 (03:01→08:16)
[2021-08-26] MEDS: heparin 5,000 unit/mL INJ 1 mL 5000 UNIT SUBCUT (03:01)
[2021-08-26] MEDS: diphenhydrAMINE 50 mg Capsule PO (03:01)
[2021-08-26 03:18] VITALS: BP 152/66; PULSE 78; O2SAT 93
[2021-08-26] MEDS: aspirin 81 mg EC Tablet PO (05:31)
[2021-08-26 06:49] LABS: Glucose Point of Care 197 mg/dL (70-110)
[2021-08-26 07:08] LABS: Basophils % 0.4 %; Eosinophils # 0.1 10^3/uL (0.0-0.8); Eosinophils % 1.9 %; Hematocrit 35.7 % (42.0-52.0); Hemoglobin 10.4 g/dL (11.7-16.6); Lymphocytes # 0.7 10^3/uL (0.8-4.8); Lymphocytes % 9.4 %; Mean Corpuscular HGB Conc 29.1 g/dL (30.0-36.0); Mean Corpuscular Hemoglobin 29.9 pg (28.0-34.0); Mean Corpuscular Volume 102.6 fl (80-94); Mean Platelet Volume 10.2 fL (7.4-10.4); Monocytes # 0.7 10^3/uL (0.2-0.9); Monocytes % 9.3 %; Neutrophils # 5.74 10^3/uL (1.8-7.7); Neutrophils % 77.4 %; Nucleated Red Blood Cells % 0 %; Platelet Count 189 10^3/cmm (130-400); Red Blood Count 3.48 10^6/uL (4.1-5.3); White Blood Count 7.4 10^3/uL (4.0-10.0)
[2021-08-26 07:30] LABS: Alanine Aminotransferase 18 U/L (0-41); Albumin Level 3.9 g/dL (3.5-5.2); Alkaline Phosphatase 134 IU/L (40-130); Anion Gap 20.8 (5-19); Aspartate Amino Transferase 18 U/L (0-40); Blood Urea Nitrogen 38 mg/dL (6-20); Calcium 8.1 mg/dL (8.5-10.5); Carbon Dioxide 24 mmol/L (22-29); Chloride 93 mmol/L (98-107); Globulin 3.4 g/dL (1.3-4.6); Glomerular Filtration Rate 13.2 mL/min (90-130); Glucose 143 mg/dL (65-115); Magnesium 2.4 mg/dL (1.7-2.3); Osmolality Calculated 288 mOsm/kg (285-295); Phosphorus 4.5 mg/dL (2.5-4.5); Potassium 4.8 mmol/L (3.5-5.1); Sodium 133 mmol/L (136-145); Total Bilirubin 0.6 mg/dL (0.15-1.2); Total Protein 7.3 g/dL (6.6-8.7)
--- NOTE | 2021-08-26 07:48 | PM.PN ---
Subjective Subjective: Interval history: Patient is seen bedside, denies any fevers or chills, tolerating regular diet. Denies any pain at the left foot. Patient denies any subjective nausea, vomiting, fever, chills, shortness of breath or chest pain. Vitals/I&O/Wt Last Vital Signs Temp 98.2 F 08/25/21 20:00 Pulse 78 08/26/21 03:18 Resp 18 08/25/21 23:27 BP 152/66 08/26/21 03:18 Pulse Ox 93 08/26/21 03:18 08/25/21 08/26/21 08/26/21 22:59 06:59 14:59 Intake Total 570 / 860 480 / 1340 Balance 570 / 860 480 / 1340 Weight last 48 hrs Weight 342 lb 9.573 oz Physical Exam Narrative: EXAM NARRATIVE: Patient is alert and oriented ?3 and in no acute distress.? The following is a focused bilateral lower extremity exam. VASCULAR: Dorsalis pedis and posterior tibial arteries are palpable however diminished, DP is triphasic at the right, biphasic at the left.? PT is biphasic bilaterally.? Capillary refill time less than 3 seconds to the distal hallux bilaterally. Calf is supple and nontender proximally and distally.? Decreased pedal hair growth bilaterally.? +1 pitting edema to the left lower extremity, +2 at the right.? Rubor to bilateral legs. NEUROLOGICAL: Protective sensation intact 10/10 sites, tested with [place] monofilament to bilateral feet. DERMATOLOGICAL: Wound subfifth metatarsal base probes probes to bone, wound measures3.2 cm x 2.4 cm x 0.9 cm, no periwound erythema or purulent drainage has granular base. Indurated skin at both legs, chronic skin pigmentation changes consistent with hemosiderin deposits due to chronic venous insufficiency. MUSCULOSKELETAL: No pain to palpation at left foot fourth and fifth metatarsals likely secondary to neuropathy.? Bony prominence of fifth metatarsal this is subtle, no breakdown of skin, no callus formation.? Reducible hammertoe deformities bilaterally 2 through 5. Data : 08/26/21 05:22 08/26/21 05:22 Micro: Microbiology 08/23/21 12:34 Gram Stain - Final Foot - #1 Tissue Culture - Preliminary 08/23/21 12:34 Gram Stain - Final Other Source Wound Culture - Preliminary Pseudomonas aeruginosa 08/22/21 14:18 Wound Culture - Preliminary Foot Left Pseudomonas aeruginosa A&P Assessment and plan (1) CKD stage 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: Status: Acute (2) Chronic venous insufficiency: Status: Acute (3) Non-pressure chronic ulcer of other part of right foot with necrosis of muscle: Status: Acute Plan 51-year-old insulin-dependent diabetic male with end-stage renal disease and chronic venous insufficiency presents with shortness of breath and rash potentially secondary to antibiotic therapies. Rashes on the extremities and abdomen. -No leukocytosis, patient is a febrile, elevated CRP 26.8 mg/L on August 21, 2021. ESR 43 on 08/22/2021 -Toe brachial index 1.0 on the right and 0.80 on the left, noncompressible vessels at the ankle unable to get accurate reading. Conclusions per cardiology report are that there are no significant arterial obstructions. -Wound left foot has been present since before February 2021, he has been noncompliant with offloading and weightbearing status at wound care previous wound culture taken April 07, 2021 shows Enterococcus and E. coli. -Recommend nonweightbearing to left lower extremity this time, may heel touch for transfers. -Deep soft tissue culture as well as bone culture taken intraoperatively 08/23/2021, culture grew Pseudomonas plans for cefepime IV. Patient ok pseudomonal for discharge from podiatry standpoint. Recommend follow-up in wound care clinic, he is already established in wound care, is actively being managed prior to this hospitalization with weekly visits, he is already undergoing hyperbaric oxygen therapy. Culture significant for Pseudomonas, plans for cefepime and IV long-term. Maxorb AG and bilateral Unna boot with Mikhail wraps applied both legs, moving forward dressings to be determined by wound care clinic. Podiatry will follow Cell phone [phone] Attestations Medical Necessity Statement*: osteomyelitis left foot Coding Level of Care Code Acute Jig Grinder for [facility] [place] Fwd Diagnoses CKD stage 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 E11.22; N18.3 Chronic venous insufficiency I87.2 Non-pressure chronic ulcer of other part of right foot with necrosis of muscle L97.513
[2021-08-26] MEDS: b-complex-vitamin c Tablet 1 EACH PO (08:15)
[2021-08-26] MEDS: predniSONE 20 mg Tablet 40 MG PO (08:15)
[2021-08-26] MEDS: isosorbide mononitrate ER 60 mg Tablet 120 MG PO (08:15)
[2021-08-26] MEDS: atorvastatin 40 mg Tablet PO (08:15)
[2021-08-26] MEDS: nystatin cream 30 gm 1 APPLIC TOPICAL (08:16)
[2021-08-26] MEDS: betamethasone 0.05% Cream 15 gm 1 APPLIC TOPICAL (08:16)
[2021-08-26] MEDS: venlafaxine ER (24HR) 75 mg Capsule PO (08:16)
[2021-08-26] MEDS: insulin lispro 100 unit/1 mL SUBCUT (08:16)
[2021-08-26 08:20] VITALS: BP 166/85; PULSE 80; RESP 18; TEMP 36.9; O2SAT 92
[2021-08-26] MEDS: carvedilol 6.25 mg Tablet PO (08:21)
[2021-08-26 09:23] VITALS: PULSE 67; O2SAT 93
--- NOTE | 2021-08-26 11:01 | PM.PN ---
Subjective Subjective: Interval history: Akil feels well today and has no specific complaints. His foot is healing well and it is comfortable for him. He received dialysis yesterday evening. He is looking forward to going home today. Hemodynamics reviewed, remained stable. Minimal extremity edema. Vitals/I&O/Wt Last Vital Signs Temp 98.5 F 08/26/21 08:20 Pulse 67 08/26/21 09:23 Resp 18 08/26/21 08:20 BP 166/85 08/26/21 08:20 Pulse Ox 93 08/26/21 09:23 08/25/21 08/26/21 08/26/21 22:59 06:59 14:59 Intake Total 570 / 860 480 / 1340 650 / 650 Balance 570 / 860 480 / 1340 650 / 650 Weight last 48 hrs Weight 155.4 kg Physical Exam Narrative: EXAM NARRATIVE: Constitutional: Awake, comfortable HEENT: Wet mucosa, no jvp, non icteric Lungs: Bilaterally clear without discernible wheeze, rales in all lung zones CVS: S1 S2, no murmurs Abdo: Soft, BS ok Ext 4: Minimal edema, peripheral perfusion with no cyanosis, foot wound dressed Neurological: Grossly non-focal Data : 08/26/21 05:22 08/26/21 05:22 Micro: Microbiology 08/23/21 12:34 Gram Stain - Final Other Source Wound Culture - Final Pseudomonas aeruginosa 08/23/21 12:34 Gram Stain - Final Foot - #1 Tissue Culture - Final 08/22/21 14:18 Wound Culture - Final Foot Left Pseudomonas aeruginosa A&P Assessment and plan (1) ESRD (end stage renal disease) on dialysis: Status: Acute Plan 1. ESRD Okay for dialysis on Sunday as part of his routine outpatient schedule Avoid usual nephrotoxic agents Dose medication for GFR less than 15 2. Left foot diabetic wound Management per podiatry is appreciated. 3. Disposition Okay for discharge from my own perspective, will review him over the weekend if he remains in the hospital. John Peters MD Nephrology [phone] Patient seen and examined via telemedicine, with the assistance of the bedside RN > 25 min spent in evaluation and mgmt of patient Attestations Medical Necessity Statement*: mgmt of ESRD Coding Level of Care Code Acute Captain/Check Airman for Chg Fwd Diagnoses ESRD (end stage renal disease) on dialysis N18.6; Z99.2
[2021-08-26 11:33] LABS: Glucose Point of Care 134 mg/dL (70-110)
[2021-08-26 11:43] LABS: Vit D 1,25 (Oh)2, Total 18 pg/mL (18-72); Vit D2 1,25 (Oh)2 <8 pg/mL; Vit D3 1,25 (Oh)2 18 pg/mL
--- NOTE | 2021-08-26 11:58 | P.DS_ITS ---
Discharge Providers Date of Admission: 08/22/21 02:49 Date of Discharge: August 26, 2021 Attending Provider at Admission: Paul Freeman MD Attending Provider at Discharge: Chris Johansen MD Primary Care Provider: Sulma Wetzel MD Diagnoses at Discharge Discharge Diagnosis (1) ESRD (end stage renal disease) on dialysis: Status: Acute Reason for Visit Reason for Visit: Rash\SOB\ Hospital Course Hospital Course Patient was admitted on 08/22 for shortness of breath related to volume overload and rash after using antibiotics. Patient has been on Augmentin and vancomycin, last dose was 3 days ago before his arrival in the ER. He has developed rash to Zyvox in the past as well. His volume overload and shortness of breath improved significantly with use of BiPAP and dialysis in the hospital. For his morbilliform skin rash she was given topical betamethasone, calamine and emollient along with Benadryl and prednisone 40 mg which helped to improve his symptoms. Hyperemia of legs and abdomen, extremities and genitalia seems to be regressing. He does have history of venous stasis dermatitis, and stating of disease, poorly controlled type 2 diabetes. Deep soft tissue culture as well as bone culture taken intraoperatively on 08/[address] Torres. It is growing Pseudomonas. He will be getting cefepime 500 mg at same time after dialysis for next 6 weeks. He is already established at wound care clinic, Dr. Zamorano has been seeing him in the wound care clinic. Instructions were given for weight offloading, heel touch for transfer, Unna boots were given for Renasys dermatitis with dressing changed by Dr. Torres, next dressing change at wound care clinic, he refused senior living, he will be discharged home on 08/26 I did speak with Dr. Eng system planning engineer, she agreed with Medrol pack at the time of discharge topical steroids and close follow-up with dermatology. Physical Exam Narrative: EXAM NARRATIVE: Patient was walikng in the room Saturating well on 2L nasal cannula Skin rash borders seem to be improving, he has calamine lotion on, morbilliform rash improving, no active sign of cellulitis right leg open wound No active mucosal ulcers Nonfocal neuro exam Abdomen soft distended, without hernia No active shortness of breath No active chest pain Discharge Data Studies Completed and Pending Completed Studies During Hospitalization Category Date Time Status XR chest 1V portable [id number] Urgent Exams 08/21/21 22:27 Completed XR foot LT min 3V* [id number] Routine Exams 08/23/21 13:06 Completed CV ankle brachial index [id number] Routine Ultrasound 08/23/21 08:00 Completed Pending at discharge Category Date Time Status Blood Culture Stat Lab 08/21/21 22:20 Results Complete Blood Count w/Auto AM LABS Lab 08/27/21 04:00 Ordered Complete Blood Count w/Auto AM LABS Lab 08/28/21 04:00 Ordered Comprehensive Metabolic Panel AM LABS Lab 08/27/21 04:00 Ordered Comprehensive Metabolic Panel AM LABS Lab 08/28/21 04:00 Ordered Magnesium AM LABS Lab 08/27/21 04:00 Ordered Magnesium AM LABS Lab 08/28/21 04:00 Ordered Phosphorus AM LABS Lab 08/27/21 04:00 Ordered Phosphorus AM LABS Lab 08/28/21 04:00 Ordered Radiology Impressions Chest X-Ray 08/21/21 22:27 IMPRESSION: Cardiomegaly and very mild pulmonary vascular congestion. Foot X-Ray 08/23/21 13:06 Impression: No change in biopsy site at the base of left fifth metatarsal. Laboratory Results WBC 7.4 10^3/uL (4.0-10.0) 08/26/21 05:22 RBC 3.48 10^6/uL (4.1-5.3) L 08/26/21 05:22 Hgb 10.4 g/dL (11.7-16.6) L 08/26/21 05:22 Hct 35.7 % (42.0-52.0) L 08/26/21 05:22 MCV 102.6 fl (80-94) H 08/26/21 05:22 MCH 29.9 pg (28.0-34.0) 08/26/21 05:22 MCHC 29.1 g/dL (30.0-36.0) L 08/26/21 05:22 RDW 16.0 % (12.1-15.1) H 08/26/21 05:22 Plt Count 189 10^3/cmm (130-400) 08/26/21 05:22 MPV 10.2 fL (7.4-10.4) 08/26/21 05:22 Neut % (Auto) 77.4 % 08/26/21 05:22 Lymph % (Auto) 9.4 % 08/26/21 05:22 [place] % (Auto) 9.3 % 08/26/21 05:22 Eos % (Auto) 1.9 % 08/26/21 05:22 Baso % (Auto) 0.4 % 08/26/21 05:22 Neut # (Auto) 5.74 10^3/uL (1.8-7.7) 08/26/21 05:22 Lymph # (Auto) 0.7 10^3/uL (0.8-4.8) L 08/26/21 05:22 [place] # (Auto) 0.7 10^3/uL (0.2-0.9) 08/26/21 05:22 Eos # (Auto) 0.1 10^3/uL (0.0-0.8) 08/26/21 05:22 Baso # (Auto) 0.0 10^3/uL (0.0-0.1) 08/26/21 05:22 Nucleated RBC % (auto) 0 % 08/26/21 05:22 Nucleated RBCs # 0.0 /100WBC 08/26/21 05:22 ESR 43 mm/hr (0-10) H 08/22/21 05:59 PT 18.70 SECONDS (12.1-14.9) H 08/21/21 22:11 INR 1.53 (0.8-1.2) H 08/21/21 22:11 APTT 31.7 SECONDS (23.9-36.7) 08/21/21 22:11 Fibrinogen 428 mg/dL (174-498) 08/21/21 22:11 Fibrin Degrad Products Neg, <10 ug/mL (NEG) 08/21/21 22:11 D-Dimer 4.56 ug/mIFEU (0-0.59) H 08/21/21 22:11 Specimen Type Arterial 08/21/21 22:57 Sample Site Radial, left 08/21/21 22:57 ABG pH 7.29 (7.35-7.45) L 08/21/21 22:57 ABG pCO2 53.8 mmHg (35-45) H 08/21/21 22:57 ABG pO2 59.7 mmHg (80.0-100.0) L 08/21/21 22:57 ABG HCO3 25.6 mmol/L (22-26) 08/21/21 22:57 ABG Base Excess -1.4 mmol/L (-2.0-2.0) 08/21/21 22:57 Jesus Test N/a 08/21/21 22:57 Hematocrit 30.1 % (42-52) L 08/21/21 22:57 Hgb O2 Saturation 85.2 % (95-100) L 08/21/21 22:57 Carboxyhemoglobin 1.9 %THgb (0.4-20.1) 08/21/21 22:57 Methemoglobin 1.1 % (0.4-1.5) 08/21/21 22:57 Total Hemoglobin 9.8 g/dL (14-18) L 08/21/21 22:57 O2 Delivery Device Nc 08/21/21 22:57 O2 Liters/Min 3.0 % 08/21/21 22:57 Echometer Engineer ID [email or web address] 08/21/21 22:57 Sodium 133 mmol/L (136-145) L 08/26/21 05:22 Potassium 4.8 mmol/L (3.5-5.1) 08/26/21 05:22 Chloride 93 mmol/L (98-107) L 08/26/21 05:22 Carbon Dioxide 24 mmol/L (22-29) 08/26/21 05:22 Anion Gap 20.8 (5-19) H 08/26/21 05:22 BUN 38 mg/dL (6-20) H 08/26/21 05:22 Creatinine 4.7 mg/dL (0.7-1.2) H 08/26/21 05:22 GFR Calculation 13.2 mL/min (90-130) L 08/26/21 05:22 Glucose 143 mg/dL (65-115) H 08/26/21 05:22 POC Glucose 134 mg/dL (70-110) H 08/26/21 10:58 Calculated Osmolality 288 mOsm/kg (285-295) 08/26/21 05:22 Lactic Acid 1.5 mmol/L (0.5-2.2) 08/21/21 22:11 Uric Acid 6.3 mg/dL (3.4-7.0) 08/22/21 05:59 Calcium 8.1 mg/dL (8.5-10.5) L 08/26/21 05:22 Phosphorus 4.5 mg/dL (2.5-4.5) 08/26/21 05:22 Magnesium 2.4 mg/dL (1.7-2.3) H 08/26/21 05:22 Iron 24 ug/dL (59-158) L 08/23/21 05:09 TIBC 222 mcg/dl 08/23/21 05:09 % Saturation 10.8 % (20-50) L 08/23/21 05:09 Unsat Iron Binding 198 ug/dL (112-347) 08/23/21 05:09 Ferritin 236 ng/mL (30-400) 08/23/21 05:09 Total Bilirubin 0.6 mg/dL (0.15-1.2) 08/26/21 05:22 AST 18 U/L (0-40) 08/26/21 05:22 ALT 18 U/L (0-41) 08/26/21 05:22 Alkaline Phosphatase 134 IU/L (40-130) H 08/26/21 05:22 Troponin T Baseline 438 ng/L (0-15) H* 08/21/21 22:11 Troponin T 120 Minute 396.4 ng/L (0-15) H 08/22/21 01:06 Delta Troponin T -41.6 ABS# (0-10) L 08/22/21 01:06 Troponin T Hi Sens 6Hr 400.0 ng/L (0-15) H 08/22/21 05:59 Troponin T Hi Sens 6Hr Delta -38.0 ng/L (0-12) L 08/22/21 05:59 C-Reactive Protein 26.8 mg/L (0.0-4.9) H 08/21/21 22:11 Total Protein 7.3 g/dL (6.6-8.7) 08/26/21 05:22 Albumin 3.9 g/dL (3.5-5.2) 08/26/21 05:22 Globulin 3.4 g/dL (1.3-4.6) 08/26/21 05:22 25-OH Vitamin D Total 48 ng/mL (30-100) 08/23/21 05:09 1,25 Dihydroxy Vit D2 <8 pg/mL 08/21/21 22:11 1,25 Dihydroxy Vit D3 18 pg/mL 08/21/21 22:11 Procalcitonin 0.69 ng/mL (0-0.5) H 08/21/21 22:11 PTH Intact 197.8 pg/mL (15-65) H 08/23/21 05:09 Calcium (PTH Intact) 8.3 mg/dL (8.5-10.5) L 08/23/21 05:09 Coronavirus 229E (PCR) Not detected (NOT DETECT) 08/21/21 22:15 Hep Bs Antigen Non-reactive (Nonreactive) 08/21/21 22:11 Hep Bs Antibody 36.4 (11.5-1000) 08/21/21 22:11 Hepatitis C Antibody Non-reactive (Nonreactive) 08/21/21 22:11 SARS-CoV-2 (PCR) Not detected (NOT DETECT) 08/21/21 22:15 Vitals Last Vital Signs Temp 98.5 F 08/26/21 08:20 Pulse 67 08/26/21 09:23 Resp 18 08/26/21 08:20 BP 166/85 08/26/21 08:20 Pulse Ox 93 08/26/21 09:23 Discharge Plan Discharge Patient Disposition: Home Condition: Stable Prescriptions: New cefepime 1 gram recon soln 500 mg IM .after HD 42 Days Qty: 10 4RF betamethasone dipropionate 0.05 % cream 1 applic topical Q12H Qty: 45 0RF Medrol ([place]) 4 mg tablets,dose pack See Rx Instructions .ROUTE .COMPLEX Qty: 21 0RF Rx Instructions: orally per package directions calamine-zinc oxide Lotion 1 applic topical 5XD PRN (Reason: skin irritation) Qty: 177 0RF Continued ofloxacin 0.3 % drops 2 drp otic (ear) ONCE PRN (Reason: Tubes in tympanic membranes) Qty: 10 12RF Rx Instructions: Apply 2 drops to each ear after water exposure (DME) Wheel Chair See Rx Instructions .Route .MEDSUPPLY Qty: 1 0RF Rx Instructions: As directed HOME aspirin 81 mg Tablet,Delayed Release (Dr/Ec) 81 mg PO QAM 0RF isosorbide mononitrate 120 mg Tablet Extended Release 24 Hr 120 mg PO DAILY 0RF sodium bicarbonate 650 mg tablet 650 mg PO TID 0RF sevelamer carbonate 800 mg tablet See Rx Instructions .ROUTE .COMPLEX 0RF Rx Instructions: 2 tabs po tid with meals and 1 tab po bid with snacks venlafaxine 75 mg capsule,extended release 24hr 75 mg PO DAILY 0RF RenaPlex-D 800 mcg-12.5 mg -2,000 unit tablet 1 tab PO DAILY 0RF carvedilol 25 mg tablet 25 mg PO BID 0RF losartan 50 mg tablet 50 mg PO DAILY 0RF atorvastatin 80 mg tablet 80 mg PO BEDTIME 0RF Lantus U-100 Insulin 100 unit/mL solution See Rx Instructions .ROUTE .COMPLEX 0RF Rx Instructions: pts states the pt has the vial at home ext med history shows last filled 04/12/21 40 units daily-solostar pen 60 units daily filled 05/05/21-pts states the pt doesnt use his insulin the way he should bumetanide 2 mg tablet See Rx Instructions .ROUTE .COMPLEX 0RF Rx Instructions: 2 tabs po bid on non hd days ( and ) trazodone 50 mg tablet 50 mg PO BEDTIME PRN (Reason: Sleep) 0RF clonazepam 0.5 mg tablet 0.5 mg PO BID 0RF acetaminophen 500 mg Tablet 500 mg PO Q6H PRN (Reason: Pain) 0RF lidocaine-prilocaine 2.5-2.5 % cream 1 applic topical . DIRECTED 0RF clonidine HCl 0.2 mg tablet 0.2 mg PO TID 0RF ropinirole 0.25 mg tablet 0.25 mg PO BEDTIME 0RF amlodipine 10 mg tablet 10 mg PO DAILY 0RF insulin aspart U-100 [Novolog U-100 Insulin aspart] 100 unit/mL solution See Rx Instructions .ROUTE .COMPLEX 0RF Rx Instructions: sliding scale tid with meals and hs hydralazine 100 mg tablet 100 mg PO Q8H 0RF triamcinolone acetonide 0.1 % ointment 1 applic TOPICAL BID PRN (Reason: unknown) 0RF gabapentin 300 mg capsule 300 mg PO DAILY PRN (Reason: unknown) 0RF mupirocin 2 % ointment See Rx Instructions .ROUTE .COMPLEX 0RF Rx Instructions: use daily on right montero with dressing change hydroxyzine pamoate 25 mg capsule 25 mg PO DAILY PRN (Reason: Itching) 0RF Rexulti 0.25 mg tablet 0.25 mg PO DAILY 0RF Lokelma 5 gram powder in packet See Rx Instructions .ROUTE .COMPLEX 0RF Rx Instructions: 1 packet (on ,,sun and sunday (non dialysis days) Discontinued metronidazole 500 mg tablet 500 mg PO TID 0RF diphenhydramine HCl [Benadryl] 25 mg Capsule 25 mg PO Q6H PRN (Reason: Allergy Symptoms) 0RF diazepam 5 mg tablet See Rx Instructions .ROUTE .COMPLEX 0RF Rx Instructions: 5-10 mg po one hour prior to procedure as directed amoxicillin-pot clavulanate 875-125 mg tablet 1 tab PO BID 0RF Discharge Orders: Discharge Order (Routine); Ordered 08/26/21 Ordered By: Chris Johansen Referrals: Sulma Wetzel MD [Primary Care Provider] - 4-7 days Elvira Eng DO [Physician] - 1-3 days [facility], [Staff Physician] - 4-7 days Discharge Diet: Cardiac Discharge Activity: Use walker/crutches as instructed Patient Instructions: Methylprednisolone (By mouth), Betamethasone (By mouth), Cefepime (By injection) (Maxipime), Pramoxine/Zinc Acetate (On the skin), Osteomyelitis (DC), Acute Rash (DC), Opioid Safety Activity Restrictions/Additional Instructions: Recommend nonweightbearing to left lower extremity this time, may heel touch for transfers. Maxorb AG and bilateral Unna boot with Mikhail wraps applied both legs, moving forward dressings to be determined by wound care clinic. Discharge Attestations Time Spent in Discharge Care*: less than 30 min Status at Discharge: Cognitive status at discharge: cognitively intact , Behavioral status at discharge: cooperative , Quality Metrics Clinical Quality Measures [ No reported AMI, CVA or VTE this stay] Coding Level of Care Code Acute Chg FW DC note Diagnoses ESRD (end stage renal disease) on dialysis N18.6; Z99.2
[2021-08-26 13:47] VITALS: BP 166/85; PULSE 67; RESP 18; TEMP 36.9; O2SAT 93
== END 2021-08-26 13:48 | disposition home or self-care (01) | DRG 981 ==
LOC: ER 08-22 03:16 → ER IP 08-22 05:56 → MEDSURG 08-22 06:41
PROVIDERS: Internal Medicine Nephrology; Podiatrist Foot & Ankle Surgery; Admitting Provider Internal Medicine; Emergency Provider Emergency Medicine; PCP Internal Medicine; Visit Provider Internal Medicine
PROC: 0QBP0ZX Excision of Left Metatarsal, Open Approach, Diagnostic (ICD-10-PCS; principal; 2021-08-23 12:00)
DX: I13.2 Hypertensive heart and chronic kidney disease with heart failure and with stage 5 chronic kidney disease, or end stage renal disease (principal); N18.6 End stage renal disease; L03.116 Cellulitis of left lower limb; L03.115 Cellulitis of right lower limb; J96.10 Chronic respiratory failure, unspecified whether with hypoxia or hypercapnia; M86.9 Osteomyelitis, unspecified; E87.4 Mixed disorder of acid-base balance; I50.30 Unspecified diastolic (congestive) heart failure; E11.22 Type 2 diabetes mellitus with diabetic chronic kidney disease; E11.42 Type 2 diabetes mellitus with diabetic polyneuropathy; E11.69 Type 2 diabetes mellitus with other specified complication; J44.9 Chronic obstructive pulmonary disease, unspecified; D63.1 Anemia in chronic kidney disease; E87.5 Hyperkalemia; E11.51 Type 2 diabetes mellitus with diabetic peripheral angiopathy without gangrene; I87.2 Venous insufficiency (chronic) (peripheral); E11.621 Type 2 diabetes mellitus with foot ulcer; L97.513 Non-pressure chronic ulcer of other part of right foot with necrosis of muscle; I44.0 Atrioventricular block, first degree; D69.2 Other nonthrombocytopenic purpura; T36.8X5A Adverse effect of other systemic antibiotics, initial encounter; E11.65 Type 2 diabetes mellitus with hyperglycemia; B96.5 Pseudomonas (aeruginosa) (mallei) (pseudomallei) as the cause of diseases classified elsewhere; Z79.4 Long term (current) use of insulin; Z99.2 Dependence on renal dialysis; Z79.82 Long term (current) use of aspirin; Z86.74 Personal history of sudden cardiac arrest; Z90.5 Acquired absence of kidney; Z77.22 Contact with and (suspected) exposure to environmental tobacco smoke (acute) (chronic); Z91.19 Patient's noncompliance with other medical treatment and regimen
CPT/HCPCS: 11044; 36415; 36416; 71045; 73630; 80048; 80053; 82306; 82310; 82652; 82728; 82805; 82962; 83540; 83550; 83605; 83735; 83970; 84100; 84145; 84484; 84550; 85025; 85362; 85378; 85384; 85610; 85651; 85730; 86140; 86706; 86803; 87040; 87070; 87075; 87077; 87176; 87186; 87205; 87340; 87635; 93005; 93922; 94660; 96372; 96374; 96375; 96376; 99212; 99291; G0277; J0610; J1644; J1815; J1940; J2270; J2405; J2543; J2704; J2916; J3010; J3490; J7512; Q0163; Q3014; Q4081

== ENCOUNTER 2021-08-29 08:04 | Outpatient (CLI) | payer MEDICARE, MEDICAID, SELFPAY | END 2021-08-29 08:05 | disposition home or self-care (01) | LOC: WOUND 08:06 | PROVIDERS: PCP Internal Medicine; Visit Provider Thoracic Surgery (Cardiothoracic Vascular Surgery) | DX: E11.621 Type 2 diabetes mellitus with foot ulcer (principal); L97.525 Non-pressure chronic ulcer of other part of left foot with muscle involvement without evidence of necrosis; M86.9 Osteomyelitis, unspecified | CPT/HCPCS: G0277 ==

== ENCOUNTER 2021-08-31 07:55 | Outpatient (CLI) | payer MEDICARE, MEDICAID, SELFPAY | END 2021-08-31 07:56 | disposition home or self-care (01) | LOC: WOUND 08:00 | PROVIDERS: PCP Internal Medicine; Visit Provider Thoracic Surgery (Cardiothoracic Vascular Surgery) | DX: E11.621 Type 2 diabetes mellitus with foot ulcer (principal); L97.526 Non-pressure chronic ulcer of other part of left foot with bone involvement without evidence of necrosis; M86.9 Osteomyelitis, unspecified | CPT/HCPCS: G0277 ==

== ENCOUNTER 2021-09-05 08:02 | Outpatient (CLI) | payer MEDICARE, MEDICAID, SELFPAY | END 2021-09-05 08:03 | disposition home or self-care (01) | LOC: WOUND 08:05 | PROVIDERS: PCP Internal Medicine; Visit Provider Thoracic Surgery (Cardiothoracic Vascular Surgery) | DX: E11.621 Type 2 diabetes mellitus with foot ulcer (principal); L97.526 Non-pressure chronic ulcer of other part of left foot with bone involvement without evidence of necrosis; M86.9 Osteomyelitis, unspecified | CPT/HCPCS: G0277 ==

== ENCOUNTER 2021-09-06 08:01 | Outpatient (CLI) | payer MEDICARE, MEDICAID, SELFPAY | END 2021-09-06 08:02 | disposition home or self-care (01) | LOC: WOUND 08:02 | PROVIDERS: PCP Internal Medicine; Visit Provider Emergency Medicine | DX: E11.621 Type 2 diabetes mellitus with foot ulcer (principal); L97.526 Non-pressure chronic ulcer of other part of left foot with bone involvement without evidence of necrosis; M86.9 Osteomyelitis, unspecified | CPT/HCPCS: G0277 ==

== ENCOUNTER 2021-09-07 16:04 | Observation (INO) | payer MEDICARE, MEDICAID, SELFPAY ==
[2021-09-07 16:11] VITALS: BP 131/75; PULSE 68; RESP 17; TEMP 36.6; O2SAT 94
--- NOTE | 2021-09-07 17:02 | XRR_ITS ---
PROCEDURE INFORMATION: Exam: XR Chest Exam date and time: 09/07/2021 5:02 PM Age: 51 years old Clinical indication: Other: Syncopal episode during dialysis; Additional info: Dyspnea TECHNIQUE: Imaging protocol: XR of the chest. Views: 1 view. COMPARISON: CR (CHEST, ) 08/21/2021 10:47 PM FINDINGS: Lungs: Shallow inspiration with parenchymal crowding. Mild interstitial prominence in both lungs. No consolidation. Pleural spaces: Unremarkable. No pleural effusion. No pneumothorax. Heart/Mediastinum: Mild cardiomegaly. Bones/joints: Unremarkable. XR/XR chest 1V portable [id number] IMPRESSION: 1. Interstitial prominence in both lungs may relate to crowding but mild pulmonary edema is not excluded. 2. Mild cardiomegaly.
--- NOTE | 2021-09-07 17:02 | ECG_ITS ---
[facility] Test Date: 2021-09-07 Pat Name: Akil Velasco Department: Room: Gender: Male Call Center Support Representative: : 1970 Requested By: Nano Bhat Order Number: [id number] Ta MD: Rosie Ivey M.D. Measurements Intervals Maxwell Rate: 64 P: 42 FL: 177 QRS: 118 QRSD: 120 T: 4 QT: 441 QTc: 457 Interpretive Statements SINUS RHYTHM POSSIBLE RIGHT VENTRICULAR HYPERTROPHY [SOME/ALL OF: PROMINENT R IN V1, LATE TRANSITION, RAD, JEROME, SSS] Compared to ECG 08/22/2021 04:26:09 No significant changes Electronically Signed On 09-07-2021 19:20:29 ASSISTED LIVING NURSING DIRECTOR by Rosie Ivey M.D. [email or web address]
--- NOTE | 2021-09-07 17:02 | W.ED.AMS ---
HPI - Altered Mental Status General: Chief Complaint: Altered Mental Status Stated Complaint: ams Time Seen by Provider: 09/07/21 16:57 PFSH ED PFSH: Medical History Accelerated hypertension Acute on chronic diastolic (congestive) heart failure Acute respiratory failure with hypoxia Acute respiratory failure with hypoxia and hypercapnia Zyrtw-oe-pagckyw kidney injury Anasarca Anemia Anemia ARDS (adult respiratory distress syndrome) Cancer Cardiac arrest Cataract (lens) fragments in eye following cataract surgery, bilateral CHF (congestive heart failure), NYHA class III Chronic kidney disease Chronic kidney disease, stage IV (severe) Chronic respiratory failure with hypoxia and hypercapnia CKD stage 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 Congestive cardiac failure COPD (chronic obstructive pulmonary disease) Diabetes Diabetes Elevated troponin End stage renal disease on dialysis Fracture of fifth metatarsal bone of left foot Fracture of fourth metatarsal bone of left foot Heart failure History of renal cell carcinoma Hypertension Hypertension Laceration Metabolic alkalosis Morbid obesity with BMI of 40.0-44.9, adult Neuropathy Obesity hypoventilation syndrome Obstructive sleep apnea Pneumonia due to 2018-nCoV PVD (peripheral vascular disease) Renal cell carcinoma History bilateral renal cell carcinoma 2007 then recurrence on the contralateral side 2011. No recurrence for long-term follow-up with some suspicion on CT scan April 2020. Respiratory failure with hypoxia and hypercapnia Restrictive lung disease Sinus bradycardia Syncope Type 2 diabetes mellitus with diabetic polyneuropathy Urinary retention Surgical History H/O partial nephrectomy bilateral H/O wisdom tooth extraction Hx of lymph node excision Family History Father , AT AGE 65 Diabetes Cancer Metastatic prostate cancer to liver Mother , AT AGE 72 Diabetes Grandfather Diabetes Cancer Other Hyperlipidemia Social History Second hand smoke exposure: Yes Smoking risk assessment/counseling performed?: Yes Alcohol intake: current Alcohol intake frequency: holidays/special occasions only Lives independently: Yes Household members: spouse Housing: House Marital status: service: No Current occupational status: retired Pets and animals: Yes History of recent travel: No Current gender identity: Male Course Vital Signs: Vital signs: Vital Signs Temperature 97.9 F 09/07/21 16:11 Pulse Rate 68 09/07/21 16:11 Respiratory Rate 17 09/07/21 16:11 Blood Pressure 131/75 09/07/21 16:11 Pulse Oximetry 94 09/07/21 16:11 Discharge Plan Discharge Condition: Stable Prescriptions: No Action ofloxacin 0.3 % drops 2 drp otic (ear) ONCE PRN (Reason: Tubes in tympanic membranes) Qty: 10 12RF Rx Instructions: Apply 2 drops to each ear after water exposure (DME) Wheel Chair See Rx Instructions .Route .MEDSUPPLY Qty: 1 0RF Rx Instructions: As directed HOME aspirin 81 mg Tablet,Delayed Release (Dr/Ec) 81 mg PO QAM 0RF isosorbide mononitrate 120 mg Tablet Extended Release 24 Hr 120 mg PO DAILY 0RF sodium bicarbonate 650 mg tablet 650 mg PO TID 0RF sevelamer carbonate 800 mg tablet See Rx Instructions .ROUTE .COMPLEX 0RF Rx Instructions: 2 tabs po tid with meals and 1 tab po bid with snacks venlafaxine 75 mg capsule,extended release 24hr 75 mg PO DAILY 0RF RenaPlex-D 800 mcg-12.5 mg -2,000 unit tablet 1 tab PO DAILY 0RF carvedilol 25 mg tablet 25 mg PO BID 0RF losartan 50 mg tablet 50 mg PO DAILY 0RF atorvastatin 80 mg tablet 80 mg PO BEDTIME 0RF Lantus U-100 Insulin 100 unit/mL solution See Rx Instructions .ROUTE .COMPLEX 0RF Rx Instructions: pts states the pt has the vial at home ext med history shows last filled 04/12/21 40 units daily-solostar pen 60 units daily filled 05/05/21-pts states the pt doesnt use his insulin the way he should bumetanide 2 mg tablet See Rx Instructions .ROUTE .COMPLEX 0RF Rx Instructions: 2 tabs po bid on non hd days ( and ) trazodone 50 mg tablet 50 mg PO BEDTIME PRN (Reason: Sleep) 0RF clonazepam 0.5 mg tablet 0.5 mg PO BID 0RF acetaminophen 500 mg Tablet 500 mg PO Q6H PRN (Reason: Pain) 0RF lidocaine-prilocaine 2.5-2.5 % cream 1 applic topical . DIRECTED 0RF clonidine HCl 0.2 mg tablet 0.2 mg PO TID 0RF ropinirole 0.25 mg tablet 0.25 mg PO BEDTIME 0RF amlodipine 10 mg tablet 10 mg PO DAILY 0RF insulin aspart U-100 [Novolog U-100 Insulin aspart] 100 unit/mL solution See Rx Instructions .ROUTE .COMPLEX 0RF Rx Instructions: sliding scale tid with meals and hs hydralazine 100 mg tablet 100 mg PO Q8H 0RF triamcinolone acetonide 0.1 % ointment 1 applic TOPICAL BID PRN (Reason: unknown) 0RF gabapentin 300 mg capsule 300 mg PO DAILY PRN (Reason: unknown) 0RF mupirocin 2 % ointment See Rx Instructions .ROUTE .COMPLEX 0RF Rx Instructions: use daily on right montero with dressing change hydroxyzine pamoate 25 mg capsule 25 mg PO DAILY PRN (Reason: Itching) 0RF Rexulti 0.25 mg tablet 0.25 mg PO DAILY 0RF Lokelma 5 gram powder in packet See Rx Instructions .ROUTE .COMPLEX 0RF Rx Instructions: 1 packet (on ,,sun and sunday (non dialysis days) cefepime 1 gram recon soln 500 mg IM .after HD 42 Days Qty: 10 4RF betamethasone dipropionate 0.05 % cream 1 applic topical Q12H Qty: 45 0RF Medrol ([place]) 4 mg tablets,dose pack See Rx Instructions .ROUTE .COMPLEX Qty: 21 0RF Rx Instructions: orally per package directions calamine-zinc oxide Lotion 1 applic topical 5XD PRN (Reason: skin irritation) Qty: 177 0RF Referrals: Sulma Wetzel MD [Primary Care Provider] - Coding Level of Care Code ED Interior Decorator Painting for Chg Fwd
--- NOTE | 2021-09-07 17:05 | W.ED.GENADLT ---
HPI - General Adult General: Chief complaint: ER Hold Stated complaint: ams Time Seen by Provider: 09/07/21 16:57 History of Present Illness: Patient is a 51-year-old male with ESRD on dialysis M/W/F, CHF on 4L NC at baseline, obesity presents emergency room post dialysis with lightheadedness and altered mental status. Per dialysis staff, patient underwent dialysis successfully and then became lightheaded and confused after. EMS was called patient was brought to the emergency room. On arrival, patient is AAO x2, occasionally in his question and follow commands. Patient appears to be somnolent. Patient denies any shortness of breath, chest pain, nausea/vomiting, abdominal pain, diarrhea, melena hematochezia. Onset: 1 hr ago Duration:ongoing Location:home Severity:moderate Associated symptoms: Deny chest pain, dyspnea, nausea, rash, palpitations or vomiting Review of Systems Const: Denies: fever(s) or chills Eyes: Denies: change in vision ENMT: Denies: mouth pain Card: Denies: chest pain or palpitations Resp: Denies: dyspnea or non-productive cough GI: Denies: abdominal pain, nausea, vomiting or diarrhea : Denies: dysuria Musc: Denies: extremity pain Skin/Breast: Denies: rash or new lesions Neuro: Reports: other (+confusion); Denies: weakness in extremities Psych: Reports: other (Normal mood) Ramy/Lymph: Denies: easy bruising [facility] ED PFSH: Medical History (Updated 09/09/21 @ 00:00 by ) Accelerated hypertension Acute on chronic diastolic (congestive) heart failure Acute respiratory failure with hypoxia Acute respiratory failure with hypoxia and hypercapnia Ppbwt-cm-wffgyid kidney injury Anasarca Anemia Anemia ARDS (adult respiratory distress syndrome) Cancer Cardiac arrest Cataract (lens) fragments in eye following cataract surgery, bilateral CHF (congestive heart failure), NYHA class III Chronic kidney disease Chronic kidney disease, stage IV (severe) Chronic respiratory failure with hypoxia and hypercapnia CKD stage 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 Congestive cardiac failure COPD (chronic obstructive pulmonary disease) Diabetes Diabetes Elevated troponin End stage renal disease on dialysis ESRD on dialysis First degree heart block Fracture of fifth metatarsal bone of left foot Fracture of fourth metatarsal bone of left foot Heart failure History of renal cell carcinoma Hypertension Hypertension Laceration Metabolic alkalosis Morbid obesity with BMI of 40.0-44.9, adult Neuropathy Obesity hypoventilation syndrome Obstructive sleep apnea Pneumonia due to 2019-nCoV PVD (peripheral vascular disease) Renal cell carcinoma History bilateral renal cell carcinoma 2007 then recurrence on the contralateral side 2011. No recurrence for long-term follow-up with some suspicion on CT scan April 2020. Respiratory failure with hypoxia and hypercapnia Respiratory failure with hypoxia and hypercapnia Restrictive lung disease Sinus bradycardia Syncope Type 2 diabetes mellitus with diabetic polyneuropathy Urinary retention Surgical History (Updated 09/09/21 @ 00:00 by ) H/O partial nephrectomy bilateral H/O wisdom tooth extraction Hx of lymph node excision Family History Father , AT AGE 65 Diabetes Cancer Metastatic prostate cancer to liver Mother , AT AGE 72 Diabetes Grandfather Diabetes Cancer Other Hyperlipidemia Social History Second hand smoke exposure: Yes Smoking risk assessment/counseling performed?: Yes Alcohol intake: current Alcohol intake frequency: holidays/special occasions only Lives independently: Yes Household members: spouse Housing: House Marital status: service: No Current occupational status: retired Pets and animals: Yes History of recent travel: No Current gender identity: Male Physical Exam Const: COMMON NORMALS: alert HENMT: COMMON NORMALS: atraumatic HEAD & SCALP: atraumatic MOUTH: moist mucous membranes not abnormal Eye: COMMON NORMALS: EOMs intact bilaterally and conjunctivae normal CONJUNCTIVA: Yes conjunctivae normal Neck/C-Spine: COMMON NORMALS: full ROM and supple Resp: COMMON NORMALS: normal respiratory effort and clear to auscultation bilaterally AUSCULTATION: clear to auscultation bilaterally Cardio: COMMON NORMALS: regular rate RATE: regular rate GI: COMMON NORMALS: Soft to palpation and non-tender PALPATION: Yes Soft to palpation Extremity: COMMON NORMALS: full ROM OTHER: +L arm AV fistula intact Neuro: SENSORIUM/ORIENTATION: Yes alert MOTOR EXAM: No Abnormal motor strength present and Other motor observations present (no focal motor deficits) OTHER: Sleeping, somnolent, responding to questions, moving all extremities, able to follow command. Psych: MOOD & AFFECT: Yes euthymic mood Course Vital Signs: Vital signs: Vital Signs Temperature 97.2 F L 09/08/21 16:23 Pulse Rate 106 H 09/08/21 19:45 Respiratory Rate 18 09/08/21 19:45 Blood Pressure 168/86 09/08/21 19:45 Pulse Oximetry 97 09/08/21 19:45 MDM - General Adult Medical Decision Making 51-year-old male presented to emergency room postdialysis with concerns for altered mental status and lightheadedness. Patient arrival, patient is noted to be satting at 95% on 4 L similar to baseline. Lungs appear to be clear bilaterally. Patient appears to be be confused and somnolent in the emergency room Work-up: CBC, BMP, troponin, BNP, x-ray chest, EKG, ABG BG, patient is found to have PCO2 of 67.2. X-rays consistent with mild pulmonary edema. Potassium appears to be within normal after an hour observation on BIPAP, patient has become more awake and alert. Patient is now AAO x3, GCS 15. He continues to have an ABG with high PCO2 retention after being on bipap for 1 hr. I have offered patient admission for serial monitor since patient tells me that his BiPAP machine is broken at home and he has had multiple episode of hypercapnic respiratory failure requiring intubations in the past. Disposition: admission Lab Data : 09/08/21 07:18 09/08/21 07:18 Radiology Impressions Chest X-Ray 09/07/21 17:02 IMPRESSION: 1. Interstitial prominence in both lungs may relate to crowding but mild pulmonary edema is not excluded. 2. Mild cardiomegaly. Laboratory Results WBC 6.0 10^3/uL (4.0-10.0) 09/07/21 17:52 RBC 3.46 10^6/uL (4.1-5.3) L 09/07/21 17:52 Hgb 10.2 g/dL (11.7-16.6) L 09/07/21 17:52 Hct 35.6 % (42.0-52.0) L 09/07/21 17:52 MCV 102.9 fl (80-94) H 09/07/21 17:52 MCH 29.5 pg (28.0-34.0) 09/07/21 17:52 MCHC 28.7 g/dL (30.0-36.0) L 09/07/21 17:52 RDW 16.1 % (12.1-15.1) H 09/07/21 17:52 Plt Count 125 10^3/cmm (130-400) L 09/07/21 17:52 MPV 10.6 fL (7.4-10.4) H 09/07/21 17:52 Neut % (Auto) 64.0 % 09/07/21 17:52 Lymph % (Auto) 11.7 % 09/07/21 17:52 [place] % (Auto) 11.9 % 09/07/21 17:52 Eos % (Auto) 10.4 % 09/07/21 17:52 Baso % (Auto) 1.3 % 09/07/21 17:52 Neut # (Auto) 3.82 10^3/uL (1.8-7.7) 09/07/21 17:52 Lymph # (Auto) 0.7 10^3/uL (0.8-4.8) L 09/07/21 17:52 [place] # (Auto) 0.7 10^3/uL (0.2-0.9) 09/07/21 17:52 Eos # (Auto) 0.6 10^3/uL (0.0-0.8) 09/07/21 17:52 Baso # (Auto) 0.1 10^3/uL (0.0-0.1) 09/07/21 17:52 Nucleated RBC % (auto) 0 % 09/07/21 17:52 Nucleated RBCs # 0.0 /100WBC 09/07/21 17:52 Specimen Type Arterial 09/07/21 19:40 Sample Site Radial, right 09/07/21 19:40 ABG pH 7.28 (7.35-7.45) L 09/07/21 19:40 ABG pCO2 67.2 mmHg (35-45) H* 09/07/21 19:40 ABG pO2 79.4 mmHg (80.0-100.0) L 09/07/21 19:40 ABG HCO3 31.4 mmol/L (22-26) H 09/07/21 19:40 ABG Base Excess 3.3 mmol/L (-2.0-2.0) H 09/07/21 19:40 Jesus Test Pos 09/07/21 19:40 Hematocrit 30.8 % (42-52) L 09/07/21 19:40 O2 Delivery Device Bipap 09/07/21 19:40 O2 Liters/Min 3.0 % 09/07/21 17:32 FiO2 32.0 % 09/07/21 19:40 Outreach Consultant ID Hinja 09/07/21 19:40 Sodium 136 mmol/L (136-145) 09/07/21 17:52 Potassium 3.9 mmol/L (3.5-5.1) 09/07/21 17:52 Chloride 96 mmol/L (98-107) L 09/07/21 17:52 Carbon Dioxide 26 mmol/L (22-29) 09/07/21 17:52 Anion Gap 17.9 (5-19) 09/07/21 17:52 BUN 29 mg/dL (6-20) H 09/07/21 17:52 Creatinine 3.5 mg/dL (0.7-1.2) H 09/07/21 17:52 GFR Calculation 18.6 mL/min (90-130) L 09/07/21 17:52 Glucose 106 mg/dL (65-115) 09/07/21 17:52 Calculated Osmolality 288 mOsm/kg (285-295) 09/07/21 17:52 Calcium 9.3 mg/dL (8.5-10.5) 09/07/21 17:52 Magnesium 2.2 mg/dL (1.7-2.3) 09/07/21 17:52 Troponin T Baseline 311 ng/L (0-15) H* 09/07/21 17:52 Troponin T 120 Minute 303.2 ng/L (0-15) H 09/07/21 19:56 Delta Troponin T -7.8 ABS# (0-10) L 09/07/21 19:56 C-Reactive Protein 23.7 mg/L (0.0-4.9) H 09/07/21 17:52 Procalcitonin 0.45 ng/mL (0-0.5) 09/07/21 17:52 Imaging Data Other Imaging: Radiologist's impression: [address] [place] [address] XRay Report Signed Patient: RodJose EAkil D Unit #: [id number] : 1970 Age/Sex: 51 / M ADM Date: 09/07/21 Loc: ER Room/Bed: Attending Dr: Ordering Provider/Ordering MD: Nano Bhat MD Date of Service: 09/07/21 Procedure(s): XR chest 1V portable 51415 Accession Number(s): [id number] Report Number: [id number] PROCEDURE INFORMATION: Exam: XR Chest Exam date and time: 09/07/2021 5:02 PM Age: 51 years old Clinical indication: Other: Syncopal episode during dialysis; Additional info: Dyspnea TECHNIQUE: Imaging protocol: XR of the chest. Views: 1 view. COMPARISON: CR (CHEST, ) 08/21/2021 10:47 PM FINDINGS: Lungs: Shallow inspiration with parenchymal crowding. Mild interstitial prominence in both lungs. No consolidation. Pleural spaces: Unremarkable. No pleural effusion. No pneumothorax. Heart/Mediastinum: Mild cardiomegaly. Bones/joints: Unremarkable. XR/XR chest 1V portable [id number] IMPRESSION: 1. Interstitial prominence in both lungs may relate to crowding but mild pulmonary edema is not excluded. 2. Mild cardiomegaly. ? Dictated By: Denzel Mortensen Signed By: Denzel Mortensen Signed Date/Time: 09/07/21 1745 DD/ 170 Discharge Plan Discharge Patient Disposition: Home Clinical Impression: Altered mental status, Status post dialysis Condition: Stable Discharge Orders: Discharge Order (Routine); Ordered 09/08/21 Ordered By: Jacqui Ascencio Coding Level of Care Code ED Taker Away for Chg Fwd Exam Comprehensive
[2021-09-07 17:46] LABS: ABG PH Result 7.28 (7.35-7.45); Arterial Blood Gas Hematocrit 30.1 % (42-52); Base Excess ABG 3.9 mmol/L (-2.0-2.0); Blood Gas Allen Test Pos; Blood Gas Operator Identificat MONRO; Blood Gas Sample Site Radial, right; Blood Gas Sample Type Arterial; HCO3 ABG 31.8 mmol/L (22-26); Oxygen Device NC; PO2 ABG 69.8 mmHg (80.0-100.0)
[2021-09-07 17:47] LABS: ABG PCO2 67.2 mmHg (35-45)
[2021-09-07 18:05] LABS: Basophils # 0.1 10^3/uL (0.0-0.1); Basophils % 1.3 %; Eosinophils # 0.6 10^3/uL (0.0-0.8); Eosinophils % 10.4 %; Hematocrit 35.6 % (42.0-52.0); Hemoglobin 10.2 g/dL (11.7-16.6); Lymphocytes # 0.7 10^3/uL (0.8-4.8); Lymphocytes % 11.7 %; Mean Corpuscular HGB Conc 28.7 g/dL (30.0-36.0); Mean Corpuscular Hemoglobin 29.5 pg (28.0-34.0); Mean Corpuscular Volume 102.9 fl (80-94); Mean Platelet Volume 10.6 fL (7.4-10.4); Monocytes # 0.7 10^3/uL (0.2-0.9); Monocytes % 11.9 %; Neutrophils # 3.82 10^3/uL (1.8-7.7); Nucleated Red Blood Cells % 0 %; Platelet Count 125 10^3/cmm (130-400); Red Blood Count 3.46 10^6/uL (4.1-5.3); Red Cell Distribution Width 16.1 % (12.1-15.1)
[2021-09-07 18:40] VITALS: PULSE 64; RESP 18; O2SAT 95
[2021-09-07 18:43] LABS: Anion Gap 17.9 (5-19); Blood Urea Nitrogen 29 mg/dL (6-20); Calcium 9.3 mg/dL (8.5-10.5); Carbon Dioxide 26 mmol/L (22-29); Chloride 96 mmol/L (98-107); Glomerular Filtration Rate 18.6 mL/min (90-130); Glucose 106 mg/dL (65-115); Magnesium 2.2 mg/dL (1.7-2.3); Osmolality Calculated 288 mOsm/kg (285-295); Potassium 3.9 mmol/L (3.5-5.1); Sodium 136 mmol/L (136-145)
[2021-09-07 18:51] LABS: Troponin(5th) Baseline 311 ng/L (0-15)
--- NOTE | 2021-09-07 19:04 | ECG_ITS ---
[facility] Test Date: 2021-09-07 Pat Name: Akil Velasco Department: Room: Gender: Male Boatswain'S Mate: : 1970 Requested By: Nano Bhat Order Number: [id number] Chappell MD: Rosie Ivey M.D. Measurements Intervals [place] Rate: 63 P: 34 IN: 209 QRS: 95 QRSD: 116 T: 3 QT: 442 QTc: 454 Interpretive Statements SINUS RHYTHM BORDERLINE RIGHT AXIS DEVIATION [QRS AXIS > 90] SEPTAL MYOCARDIAL INFARCTION , PROBABLY OLD [40+ ms Q WAVE IN V1/V2] Compared to ECG 09/07/2021 17:10:56 Myocardial infarct finding now present Atrial abnormality no longer present Electronically Signed On 09-07-2021 19:29:34 RUBBER STAMP MAKER by Rosie Ivey M.D. [email or web address]
[2021-09-07 19:46] LABS: ABG PCO2 67.2 mmHg (35-45); ABG PH Result 7.28 (7.35-7.45); Arterial Blood Gas Hematocrit 30.8 % (42-52); Base Excess ABG 3.3 mmol/L (-2.0-2.0); Blood Gas Allen Test Pos; Blood Gas Sample Site Radial, right; Blood Gas Sample Type Arterial; HCO3 ABG 31.4 mmol/L (22-26); Oxygen Device BIPAP; PO2 ABG 79.4 mmHg (80.0-100.0)
[2021-09-07 19:54] VITALS: PULSE 65; RESP 22; O2SAT 96
[2021-09-07 20:39] LABS: Troponin 5 2HR Delta -7.8 ABS# (0-10)
[2021-09-07 20:40] LABS: Troponin 5 2HR 303.2 ng/L (0-15)
--- NOTE | 2021-09-07 20:48 | P.HP_ITS ---
Providers/Chief Complaint Primary Care Provider: Sulma Wetzel MD Chief Complaint: ams History of Present Illness Akil Velasco is a 51 year old male with a past medical history of insulin- dependent type 2 diabetes mellitus, hypertension, heart failure with preserved ejection fraction, chronic respiratory failure on 2.5 L on BiPAP history of end- stage renal disease on dialysis Sunday, anxiety and depression, recent hospitalization for left foot diabetic ulcer status post debridement wound cultures growing Pseudomonas on cefepime currently ambulating in a cam boot, who presents to [facility] from dialysis due to low blood pressures and altered mental status. Patient was at dialysis today, and he tells me that they did not take a fluid because his blood pressures were low, he just received ultrafiltration, after his dialysis they noticed that he continued to have low blood pressure and it was becoming confused so he was brought to [facility] for evaluation. Here at [facility] patient was found to have hypercarbic respiratory failure put on BiPAP, currently alert or iented x3, following all commands, is grossly edematous. When asked why he does not use his home BiPAP, he tells me that the mask fits too tight, he feels claustrophobic, has not been using it. He does have bilateral extremity edema, denies any cough, no wheezing, does complain of shortness of breath with exertion. Has been ambulating in a cam boot, his diabetic ulcer has been improving, has been getting antibiotics after dialysis. No fevers, has been urinating more frequently, no neck pain, neck stiffness, no headache, has received all 3 Covid vaccinations Review of Systems Const: Denies: fever(s) or chills Eyes: Denies: change in vision or blurry vision ENMT: Denies: throat pain or nasal congestion Card: Reports: edema and dyspnea on exertion; Denies: chest pain or palpitations Resp: Reports: dyspnea; Denies: productive cough, non-productive cough or wheezing GI: Denies: abdominal pain, nausea, vomiting, hematemesis, diarrhea, constipation, hematochezia or melena : Denies: flank pain, difficulty urinating, dysuria or urinary frequency Musc: Denies: neck pain or back pain Skin/Breast: Reports: rash Neuro: Denies: headache(s), dizziness or vertigo Endo: Denies: polyuria or polydipsia Medications/Allergies Home Medications Medication Instructions Recorded Confirmed Last Taken Type aspirin 81 mg tablet,delayed 81 mg PO QAM 10/04/20 08/22/21 04/25/21 06:30 History release isosorbide mononitrate 120 mg 120 mg PO DAILY 10/04/20 08/22/21 01/05/21 History tablet,extended release 24 hr sevelamer carbonate 800 mg tablet See Rx Instructions .ROUTE .COMPLEX 11/11/20 08/22/21 01/05/21 History sodium bicarbonate 650 mg tablet 650 mg PO TID 11/11/20 08/22/21 04/25/21 History carvedilol 25 mg tablet 25 mg PO BID 04/25/21 08/22/21 04/25/21 06:30 History vit B,C-folic ac 800 mcg-zinc 12.5 1 tab PO DAILY 04/25/21 08/22/21 Unknown History mg-selen-D3 2,000 unit-vit E tablet (RenaPlex-D) ofloxacin 0.3 % eye drops 2 drp OTIC (EAR) ONCE PRN #10 ml 08/16/21 08/22/21 Unknown Rx Wheel Chair #1 ea 08/18/21 08/22/21 Unknown Rx acetaminophen 500 mg tablet 500 mg PO Q6H PRN 08/22/21 08/22/21 Unknown History amlodipine 10 mg tablet 10 mg PO DAILY 08/22/21 08/22/21 Unknown History atorvastatin 80 mg tablet 80 mg PO BEDTIME 08/22/21 08/22/21 Unknown History brexpiprazole 0.25 mg tablet 0.25 mg PO DAILY 08/22/21 08/22/21 Unknown History (Rexulti) bumetanide 2 mg tablet See Rx Instructions .ROUTE .COMPLEX 08/22/21 08/22/21 Unknown History clonazepam 0.5 mg tablet 0.5 mg PO BID 08/22/21 08/22/21 Unknown History clonidine HCl 0.2 mg tablet 0.2 mg PO TID 08/22/21 08/22/21 Unknown History gabapentin 300 mg capsule 300 mg PO DAILY PRN 08/22/21 08/22/21 Unknown History hydralazine 100 mg tablet 100 mg PO Q8H 08/22/21 08/22/21 Unknown History hydroxyzine pamoate 25 mg capsule 25 mg PO DAILY PRN 08/22/21 08/22/21 Unknown History insulin aspart U-100 100 unit/mL See Rx Instructions .ROUTE .COMPLEX 08/22/21 08/22/21 Unknown History subcutaneous solution (Novolog U-100 Insulin aspart) insulin glargine 100 unit/mL See Rx Instructions .ROUTE .COMPLEX 08/22/21 08/22/21 Unknown History subcutaneous solution (Lantus U-100 Insulin) lidocaine-prilocaine 2.5 %-2.5 % 1 applic TOPICAL . DIRECTED 08/22/21 08/22/21 Unknown History topical cream losartan 50 mg tablet 50 mg PO DAILY 08/22/21 08/22/21 Unknown History mupirocin 2 % topical ointment See Rx Instructions .ROUTE .COMPLEX 08/22/21 08/22/21 Unknown History ropinirole 0.25 mg tablet 0.25 mg PO BEDTIME 08/22/21 08/22/21 Unknown History sodium zirconium cyclosilicate 5 See Rx Instructions .ROUTE .COMPLEX 08/22/21 08/22/21 Unknown History gram oral powder packet ([facility]) trazodone 50 mg tablet 50 mg PO BEDTIME PRN 08/22/21 08/22/21 Unknown History triamcinolone acetonide 0.1 % 1 applic TOPICAL BID PRN 08/22/21 08/22/21 Unknown History topical ointment betamethasone dipropionate 0.05 % 1 applic TOPICAL Q12H #45 g 08/26/21 Unknown Rx topical cream calamine-zinc oxide lotion 1 applic TOPICAL 5XD PRN #177 ml 08/26/21 Unknown Rx cefepime 1 gram solution for 500 mg IM .after HD 42 Days #10 ea 08/26/21 Unknown Rx injection venlafaxine 150 mg 150 mg PO DAILY 09/07/21 09/07/21 09/06/21 History capsule,extended release 24 hr Allergies Allergy/AdvReac Type Severity Reaction Status Date / Time vancomycin Allergy Unknown Rash Unverified 08/27/21 16:33 dextrose 5 % in water Allergy tendonitis Verified 08/22/21 10:53 [From Zyvox] linezolid [From Zyvox] Allergy tendonitis Verified 08/22/21 10:53 ciprofloxacin [From Cipro] AdvReac Severe Tendonitis Verified 08/18/21 12:02 PFSH Acute PFSH: Medical History (Updated 09/07/21 @ 20:55 by Julio C Bal MD) Accelerated hypertension Acute on chronic diastolic (congestive) heart failure Acute respiratory failure with hypoxia Acute respiratory failure with hypoxia and hypercapnia [id number] kidney injury Anasarca Anemia Anemia ARDS (adult respiratory distress syndrome) Cancer Cardiac arrest Cataract (lens) fragments in eye following cataract surgery, bilateral CHF (congestive heart failure), NYHA class III Chronic kidney disease Chronic kidney disease, stage IV (severe) Chronic respiratory failure with hypoxia and hypercapnia CKD stage 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 Congestive cardiac failure COPD (chronic obstructive pulmonary disease) Diabetes Diabetes Elevated troponin End stage renal disease on dialysis ESRD on dialysis First degree heart block Fracture of fifth metatarsal bone of left foot Fracture of fourth metatarsal bone of left foot Heart failure History of renal cell carcinoma Hypertension Hypertension Laceration Metabolic alkalosis Morbid obesity with BMI of 40.0-44.9, adult Neuropathy Obesity hypoventilation syndrome Obstructive sleep apnea Pneumonia due to 2018-nCoV PVD (peripheral vascular disease) Renal cell carcinoma History bilateral renal cell carcinoma 2007 then recurrence on the contralateral side 2011. No recurrence for long-term follow-up with some suspicion on CT scan April 2020. Respiratory failure with hypoxia and hypercapnia Respiratory failure with hypoxia and hypercapnia Restrictive lung disease Sinus bradycardia Syncope Type 2 diabetes mellitus with diabetic polyneuropathy Urinary retention Surgical History H/O partial nephrectomy bilateral H/O wisdom tooth extraction Hx of lymph node excision Family History Father , AT AGE 65 Diabetes Cancer Metastatic prostate cancer to liver Mother , AT AGE 72 Diabetes Grandfather Diabetes Cancer Other Hyperlipidemia Social History Second hand smoke exposure: Yes Smoking risk assessment/counseling performed?: Yes Alcohol intake: current Alcohol intake frequency: holidays/special occasions o nly Lives independently: Yes Household members: spouse Housing: House Marital status: service: No Current occupational status: retired Pets and animals: Yes History of recent travel: No Current gender identity: Male Vitals/I&O/Wt Last Vital Signs Temp 97.9 F 09/07/21 16:11 Pulse 65 09/07/21 19:54 Resp 17 09/07/21 16:11 BP 131/75 09/07/21 16:11 Pulse Ox 96 09/07/21 19:54 Physical Exam Const: COMMON NORMALS: no acute distress and patient oriented x3 HENMT: COMMON NORMALS: normocephalic HEAD & SCALP: normocephalic Neck/C-Spine: COMMON NORMALS: no JVD Lymph: LYMPHATIC: no lymphadenopathy noted Resp: COMMON NORMALS: normal respiratory effort, No retractions, No use of accessory muscles and clear to auscultation bilaterally AUSCULTATION: clear to auscultation bilaterally Cardio: COMMON NORMALS: no JVD, regular rate, regular rhythm, S1 normal heart sound present and S2 normal heart sound present RATE: regular rate RHYTHM: regular rhythm HEART SOUNDS: S1 normal heart sound present and S2 normal heart sound present GI: COMMON NORMALS: Soft to palpation, non-tender, No hepatosplenomegaly present, no masses and no bruits INSPECTION: Yes normal to inspection, Yes Abdominal wall edema, Yes Anasarca, Yes abdominal distension and Yes striae AUSCULTATION: Yes normoactive bowel sounds PALPATION: Yes Soft to palpation and Yes No hepatosplenomegaly present Extremity: COMMON NORMALS: capillary refill normal, no clubbing, cyanosis or edema and no calf tenderness NARRATIVE EXTREMITY EXAM: Bilateral extremity edema, 2+, left lower extremity in a Cam boot Left lower extremity, left lateral aspect, diabetic ulcer measuring 2 x 2 cm, good granulation tissue Neuro: COMMON NORMALS: patient oriented x3 Psych: COMMON NORMALS: mental status grossly normal Data : 09/07/21 17:52 09/07/21 17:52 A&P Assessment and plan (1) Altered mental status: Status: Acute (2) Diabetic ulcer of left foot: Status: Acute (3) Acute renal failure: Status: Acute (4) Hypercapnic respiratory failure: Status: Acute (5) Chronic kidney disease: Status: Acute (6) Diabetes mellitus type 2 in obese: Status: Acute (7) Elevated troponin: Status: Acute (8) Hypertension: Status: Acute (9) CHF (congestive heart failure), NYHA class III: Status: Acute (10) Fluid overload: Status: Acute Plan Acute encephalopathy -Likely secondary to hypercarbia, mentation improving -Noncompliance with home BiPAP -UA, pro-Albert, CRP, blood cultures pending Acute hypercarbic respiratory failure -Likely secondary to fluid overload, noncompliance with BiPAP -Continue BiPAP -Bumex 1 mg every 12 hours -Nephrology consulted, will get dialysis tomorrow morning Fluid overload, diastolic CHF exacerbation, anasarca -Bumex as above -Hopefully will get dialysis tomorrow morning Acute renal failure, end-stage renal disease, on dialysis, creatinine 3.5 Left foot diabetic ulcer, in a cam boot, cultures growing Pseudomonas, status post debridement -Continue gentle wound care -Continue cam boot -Continue cefepime 1 g every 24 hours -Follow blood cultures Elevated troponin -311 -No complaints of chest pain -No acute ST-T wave changes on EKGs -Serial troponins, serial EKGs, telemetry monitorin -continue aspirin and statin Type 2 diabetes mellitus -Low-dose sliding scale Low blood pressures -Hold blood blood pressure medications Full code Heparin for DVT prophylaxis Attestations Medical Necessity Statement*: Patient requires hospitalization, outpatient with observation, for fluid overload, hypercapnic respiratory failure Coding Level of Care Code Acute 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
[2021-09-07 21:00] VITALS: BP 143/88; PULSE 65; RESP 17; O2SAT 94
[2021-09-07 21:16] LABS: C Reactive Protein 23.7 mg/L (0.0-4.9)
[2021-09-07 21:21] LABS: Procalcitonin 0.45 ng/mL (0-0.5)
[2021-09-07 22:20] LABS: Lactic Sepsis W/Reflex 0.8 mmol/L (0.5-2.2)
[2021-09-07 23:20] VITALS: PULSE 67; RESP 14; O2SAT 94
[2021-09-07] MEDS: bumetanide 0.25 mg/mL SDV 4 mL 1 MG IVP (23:39)
[2021-09-07] MEDS: pantoprazole 40 mg SDV IVP (23:39)
[2021-09-07] MEDS: atorvastatin 40 mg Tablet PO (23:39)
[2021-09-07] MEDS: heparin 5,000 unit/mL INJ 1 mL 5000 UNIT SUBCUT (23:39)
[2021-09-07] MEDS: cefepime 1,000 MG in sodium chloride 0.9% (plus) 50 ML 100 MG IV (23:40)
[2021-09-07] MEDS: ropinirole 0.25 mg Tablet PO (23:41)
[2021-09-07 23:42] VITALS: BP 154/70; PULSE 65; PULSE 66; RESP 15; O2SAT 93; O2SAT 97
[2021-09-08] VITALS (17 sets, daily range): BP systolic 140–183; BP diastolic 41–97; PULSE 63–106; RESP 12–19; TEMP 36.2–36.7; O2SAT 89–97; BMI 43.1
[2021-09-08] MEDS: sodium bicarbonate 650 mg Tablet PO (00:37)
--- NOTE | 2021-09-08 07:31 | PC.NURSE ---
patient resting with cpap on, patient on continuous bedside customer support consultant.
[2021-09-08 07:32] LABS: Basophils # 0.1 10^3/uL (0.0-0.1); Basophils % 1.8 %; Eosinophils # 0.8 10^3/uL (0.0-0.8); Eosinophils % 13.1 %; Hematocrit 37.1 % (42.0-52.0); Hemoglobin 10.4 g/dL (11.7-16.6); Lymphocytes # 0.6 10^3/uL (0.8-4.8); Lymphocytes % 9.3 %; Mean Corpuscular Hemoglobin 29.2 pg (28.0-34.0); Mean Corpuscular Volume 104.2 fl (80-94); Monocytes # 0.7 10^3/uL (0.2-0.9); Monocytes % 11.3 %; Neutrophils # 3.94 10^3/uL (1.8-7.7); Neutrophils % 64.2 %; Nucleated Red Blood Cells % 0 %; Platelet Count 120 10^3/cmm (130-400); Red Blood Count 3.56 10^6/uL (4.1-5.3); Red Cell Distribution Width 16.1 % (12.1-15.1); White Blood Count 6.1 10^3/uL (4.0-10.0)
[2021-09-08 07:55] LABS: Glucose Point of Care 95 mg/dL (70-110)
[2021-09-08 08:01] LABS: Alanine Aminotransferase 15 U/L (0-41); Alkaline Phosphatase 111 IU/L (40-130); Anion Gap 18.3 (5-19); Aspartate Amino Transferase 16 U/L (0-40); Blood Urea Nitrogen 34 mg/dL (6-20); Calcium 9.4 mg/dL (8.5-10.5); Carbon Dioxide 25 mmol/L (22-29); Chloride 100 mmol/L (98-107); Globulin 3.1 g/dL (1.3-4.6); Glomerular Filtration Rate 15.5 mL/min (90-130); Glucose 95 mg/dL (65-115); Magnesium 2.2 mg/dL (1.7-2.3); Osmolality Calculated 295 mOsm/kg (285-295); Phosphorus 4.7 mg/dL (2.5-4.5); Potassium 4.3 mmol/L (3.5-5.1); Sodium 139 mmol/L (136-145); Total Bilirubin 0.5 mg/dL (0.15-1.2); Total Protein 7.1 g/dL (6.6-8.7)
[2021-09-08] MEDS: aspirin 81 mg EC Tablet PO (09:29)
[2021-09-08] MEDS: venlafaxine ER (24HR) 75 mg Capsule PO (09:29)
[2021-09-08] MEDS: heparin 5,000 unit/mL INJ 1 mL 5000 UNIT SUBCUT (10:31)
[2021-09-08] MEDS: bumetanide 0.25 mg/mL SDV 4 mL 1 MG IVP (10:31)
--- NOTE | 2021-09-08 11:57 | P.CONIM_ITS ---
Providers/Reason For Consult Consulting Physician/Specialty*: Nephro Reason for Consult*: ESRD mgmt Attending Physician: Jacqui Ascencio MD Primary Care Provider: Sulma Wetzel MD History of Present Illness History of Present Illness Thanks for consultation, today I reviewed Mr. Velasco whom I know well from prior hospitalizations. During dialysis yesterday his blood pressure went down and he became very confused and so he was brought to the emergency room for evaluation. He now feels completely fine, completely asymptomatic. Blood pressure came up. He is unsure exactly how much dialysis he did receive yesterday. No extremity edema, chest x-ray shows mild fluid overload. Review of Systems Narrative: ROS - 12 point review of systems completed per HPI and subjective assessment, this includes Constitutional: No weakness, fatigue Respiratory: No SOB on exertion, comfortable at rest CardioVasc: No chest pain, palpitations Gastrointestinal: No nausea, no vomiting Neurological: No seizures, no AMS Derm: No new rashes, lesions or wounds Immunological: No seasonal and no food allergies Medications/Allergies Home Medications Medication Instructions Recorded Confirmed Last Taken Type aspirin 81 mg tablet,delayed 81 mg PO QAM 10/04/20 09/07/21 09/06/21 History release isosorbide mononitrate 120 mg 120 mg PO DAILY 10/04/20 09/07/21 09/06/21 History tablet,extended release 24 hr sevelamer carbonate 800 mg tablet See Rx Instructions .ROUTE .COMPLEX 11/11/20 09/07/21 09/06/21 History sodium bicarbonate 650 mg tablet 650 mg PO TID 11/11/20 09/07/21 09/06/21 History carvedilol 25 mg tablet 25 mg PO BID 04/25/21 09/07/21 09/06/21 History vit B,C-folic ac 800 mcg-zinc 12.5 1 tab PO DAILY 04/25/21 09/07/21 09/06/21 History mg-selen-D3 2,000 unit-vit E tablet (RenaPlex-D) ofloxacin 0.3 % eye drops 2 drp OTIC (EAR) ONCE PRN #10 ml 08/16/21 09/07/21 Un known Rx Wheel Chair #1 ea 08/18/21 09/07/21 Unknown Rx acetaminophen 500 mg tablet 500 mg PO Q6H PRN 08/22/21 09/07/21 Unknown History amlodipine 10 mg tablet 10 mg PO DAILY 08/22/21 09/07/21 09/06/21 History atorvastatin 80 mg tablet 80 mg PO BEDTIME 08/22/21 09/07/21 09/06/21 History brexpiprazole 0.25 mg tablet 0.25 mg PO DAILY 08/22/21 09/07/21 09/06/21 History (Rexulti) bumetanide 2 mg tablet See Rx Instructions .ROUTE .COMPLEX 08/22/21 09/07/21 09/06/21 History clonazepam 0.5 mg tablet 0.5 mg PO BID 08/22/21 09/07/21 09/06/21 History clonidine HCl 0.2 mg tablet 0.2 mg PO TID 08/22/21 09/07/21 09/06/21 History gabapentin 300 mg capsule 300 mg PO DAILY PRN 08/22/21 09/07/21 09/06/21 History hydralazine 100 mg tablet 100 mg PO Q8H 08/22/21 09/07/21 09/06/21 History hydroxyzine pamoate 25 mg capsule 25 mg PO DAILY PRN 08/22/21 09/07/21 Unknown History insulin aspart U-100 100 unit/mL See Rx Instructions .ROUTE .COMPLEX 08/22/21 09/07/21 Unknown History subcutaneous solution (Novolog U-100 Insulin aspart) insulin glargine 100 unit/mL 60 unit SUBCUT DAILY 08/22/21 09/07/21 09/06/21 History subcutaneous solution (Lantus U-100 Insulin) lidocaine-prilocaine 2.5 %-2.5 % 1 applic TOPICAL . DIRECTED 08/22/21 09/07/21 Unknown History topical cream losartan 50 mg tablet 50 mg PO DAILY 08/22/21 09/07/21 09/06/21 History mupirocin 2 % topical ointment See Rx Instructions .ROUTE .COMPLEX 08/22/21 09/07/21 Unknown History ropinirole 0.25 mg tablet 0.25 mg PO BEDTIME 08/22/21 09/07/21 09/06/21 History sodium zirconium cyclosilicate 5 See Rx Instructions .ROUTE .COMPLEX 08/22/21 09/07/21 09/06/21 History gram oral powder packet ([facility]) trazodone 50 mg tablet 50 mg PO BEDTIME PRN 08/22/21 09/07/21 Unknown History triamcinolone acetonide 0.1 % 1 applic TOPICAL BID PRN 08/22/21 09/07/21 Unknown History topical ointment betamethasone dipropionate 0.05 % 1 applic TOPICAL Q12H #45 g 08/26/21 09/07/21 09/06/21 Rx topical cream calamine-zinc oxide lotion 1 applic TOPICAL 5XD PRN #177 ml 08/26/21 09/07/21 Unknown Rx cefepime 1 gram solution for 500 mg IM .after HD 42 Days #10 ea 08/26/21 09/07/21 Unknown Rx injection venlafaxine 150 mg 150 mg PO DAILY 09/07/21 09/07/21 09/06/21 History capsule,extended release 24 hr Allergies Allergy/AdvReac Type Severity Reaction Status Date / Time vancomycin Allergy Unknown Rash Unverified 08/27/21 16:33 dextrose 5 % in water Allergy tendonitis Verified 08/22/21 10:53 [From Zyvox] linezolid [From Zyvox] Allergy tendonitis Verified 08/22/21 10:53 ciprofloxacin [From Cipro] AdvReac Severe Tendonitis Verified 08/18/21 12:02 Current Medications Generic Name Dose Route Start Last Admin Trade Name Freq PRN Reason Stop Dose Admin Aspirin 81 mg 09/08/21 09:00 09/08/21 09:29 Aspirin 81 Mg Ec Tablet PO 81 mg DAILY [place] Administration Atorvastatin Calcium 40 mg 09/07/21 22:54 09/07/21 23:39 Atorvastatin 40 Mg Tablet PO 40 mg BEDTIME [place] Administration Bumetanide 1 mg 09/07/21 22:54 09/08/21 10:31 Bumetanide 0.25 Mg/Ml Sdv 4 Ml IVP 1 mg Q12H [place] Administration Heparin Sodium (Porcine) 5,000 unit 09/07/21 22:54 09/08/21 10:31 Heparin 5,000 Unit/Ml Inj 1 Ml SUBCUT 5,000 unit Q12H [place] Administration Cefepime HCl 1,000 mg/ Sodium 50 mls @ 100 mls/hr 09/07/21 23:00 09/08/21 01:08 Chloride IV Infused Q24H [place] Infusion Protocol Insulin Human Lispro 0 unit 09/08/21 08:00 09/08/21 07:57 Insulin Lispro 100 Unit/1 Ml SUBCUT Not Given TIDWM [facility] Protocol Pantoprazole Sodium 40 mg 09/07/21 22:54 09/07/21 23:39 Pantoprazole 40 Mg Sdv IVP 40 mg Q24H [place] Administration Ropinirole HCl 0.25 mg 09/07/21 22:54 09/07/21 23:41 Ropinirole 0.25 Mg Tablet PO 0.25 mg BEDTIME [place] Administration Venlafaxine HCl 75 mg 09/08/21 09:00 09/08/21 09:29 Venlafaxine Er (24hr) 75 Mg Capsule PO 75 mg DAILY [place] Administration PFSH Acute PFSH: Medical History (Updated 09/07/21 @ 20:55 by Julio C Bal MD) Accelerated hypertension Acute on chronic diastolic (congestive) heart failure Acute respiratory failure with hypoxia Acute respiratory failure with hypoxia and hypercapnia [id number] kidney injury Anasarca Anemia Anemia ARDS (adult respiratory distress syndrome) Cancer Cardiac arrest Cataract (lens) fragments in eye following cataract surgery, bilateral CHF (congestive heart failure), NYHA class III Chronic kidney disease Chronic kidney disease, stage IV (severe) Chronic respiratory failure with hypoxia and hypercapnia CKD stage 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 Congestive cardiac failure COPD (chronic obstructive pulmonary disease) Diabetes Diabetes Elevated troponin End stage renal disease on dialysis ESRD on dialysis First degree heart block Fracture of fifth metatarsal bone of left foot Fracture of fourth metatarsal bone of left foot Heart failure History of renal cell carcinoma Hypertension Hypertension Laceration Metabolic alkalosis Morbid obesity with BMI of 40.0-44.9, adult Neuropathy Obesity hypoventilation syndrome Obstructive sleep apnea Pneumonia due to 2018-nCo PVD (peripheral vascular disease) Renal cell carcinoma History bilateral renal cell carcinoma 2007 then recurrence on the contralateral side 2011. No recurrence for long-term follow-up with some suspicion on CT scan April 2020. Respiratory failure with hypoxia and hypercapnia Respiratory failure with hypoxia and hypercapnia Restrictive lung disease Sinus bradycardia Syncope Type 2 diabetes mellitus with diabetic polyneuropathy Urinary retention Surgical History H/O partial nephrectomy bilateral H/O wisdom tooth extraction Hx of lymph node excision Family History Father , AT AGE 65 Diabetes Cancer Metastatic prostate cancer to liver Mother , AT AGE 72 Diabetes Grandfather Diabetes Cancer Other Hyperlipidemia Social History Second hand smoke exposure: Yes Smoking risk assessment/counseling performed?: Yes Alcohol intake: current Alcohol intake frequency: holidays/special occasions only Lives independently: Yes Household members: spouse Housing: House Marital status: service: No Current occupational status: retired Pets and animals: Yes History of recent travel: No Current gender identity: Male Vitals/I&O/Wt Last Vital Signs Temp 97.9 F 09/07/21 16:11 Pulse 76 09/08/21 10:37 Resp 17 09/08/21 10:37 BP 140/41 09/08/21 10:37 Pulse Ox 92 09/08/21 10:40 09/07/21 09/08/21 09/08/21 22:59 06:59 14:59 Intake Total 50 / 50 Balance 50 / 50 Weight last 48 hrs Weight 148.325 kg Physical Exam Narrative: Constitutional: Awake, comfortable HEENT: Wet mucosa, no jvp, non icteric Lungs: Bilaterally clear without discernible wheeze, rales in all lung zones CVS: S1 S2, no murmurs Abdo: Soft, BS ok Ext 4: Minimal edema, peripheral perfusion with no cyanosis Neurological: Grossly non-focal Data : 09/08/21 07:18 09/08/21 07:18 Micro: Microbiology 09/07/21 21:49 Blood Culture - Preliminary Blood SPECIMEN COLLECTED 09/07/21 21:33 Blood Culture - Preliminary Blood SPECIMEN COLLECTED A&P Assessment and plan (1) Status post dialysis: 1. ESRD We will plan for dialysis today, to finish the dialysis session he had yesterday. 2 hours of dialysis, 2 L of ultrafiltration. Continue regular MWF schedule tomorrow. Dose medication for GFR less than 15. 2. Hypotension Likely to be slightly overmedicated at this time, I have asked him to cut back on his antihypertensive medications stop clonidine and hydralazine. Close monitoring and management of his antihypertensives by his outpatient team. 3. Chemistry Likely to be slightly overmedicated at this time, I have asked him to cut back on Lokelma and sodium bicarbonate, these are unnecessary medicines. 4. Chronic ESRD issues These can be managed as an outpatient as part of standard monthly management including secondary hyperparathyroidism, anemia of ESRD etc., continue home medication. Ok for DC home after dialysis today John Peters MD Nephrology [phone] Patient seen and examined via telemedicine, with the assistance of the bedside RN > 25 min spent in evaluation and mgmt of patient Status: Acute Coding Level of Care Code Acute Chief Minister for [facility] Fwd Diagnoses Status post dialysis Z99.2
--- NOTE | 2021-09-08 18:34 | P.DS_ITS ---
Discharge Providers Date of Admission: 09/07/21 20:13 Date of Discharge: September 08, 2021 Attending Provider at Admission: Julio C Bal MD Attending Provider at Discharge: Jacqui Ascencio MD Primary Care Provider: Sulma Wetzel MD Diagnoses at Discharge Discharge Diagnosis (1) Status post dialysis: Status: Acute (2) Fluid overload: Status: Acute (3) Hypercapnic respiratory failure: Status: Acute Reason for Visit Reason for Visit: ams Hospital Course Hospital Course 51 year old male with a past medical history of insulin-dependent type 2 diabetes mellitus, hypertension, heart failure with preserved ejection fraction, chronic respiratory failure on 2.5 L on BiPAP history of end-stage renal disease on dialysis Sunday, anxiety and depression, recent hospitalization for left foot diabetic ulcer status post debridement wound cultures growing Pseudomonas on cefepime currently ambulating in a cam boot, who presents to [facility] from dialysis due to low blood pressures and altered mental status.? At his routine dialysis session, on the ultrafiltration was performed not enough fluid taken off.Here at [facility] patient was found to have hypercarbic respiratory failure put on BiPAP, currently alert oriented x3, following all commands, is grossly edematous.? Noncompliant with BiPAP as he feels claustrophobic. Acute encephalopathy improved with BiPAP use, most likely secondary to hypercarbia. Patient is alert awake oriented all day today. For his fluid overload and diastolic CHF exacerbation he received dialysis this morning and is much improved. No hypotension was encountered during course of admission here. At discharge per nephrology recommendations hydralazine and clonidine have been discontinued. Physical Exam Narrative: GEN: Awake, alert and oriented, no acute distress CVS: S1S2 N RS: CTA B/L except crackles over RUL Abd: Soft, nt/nd , bs+ ENVIRONMENTAL STUDIES DEPARTMENT CHAIR: no focal neuro deficits Extremities: Ulcer on left plantar aspect, known, under treatment at the wound care clinic with hyperbaric oxygen and cefepime IV for osteomyelitis. No gross signs of cellulitis. Discharge Data Studies Completed and Pending Completed Studies During Hospitalization Category Date Time Status XR chest 1V portable [id number] Urgent Exams 09/07/21 17:02 Completed Pending at discharge Category Date Time Status Blood Culture Stat Lab 09/07/21 21:49 Results Complete Blood Count w/Auto AM LABS Lab 09/09/21 04:00 Ordered Complete Blood Count w/Auto AM LABS Lab 09/10/21 04:00 Ordered Comprehensive Metabolic Panel AM LABS Lab 09/09/21 04:00 Ordered Comprehensive Metabolic Panel AM LABS Lab 09/10/21 04:00 Ordered Magnesium AM LABS Lab 09/09/21 04:00 Ordered Magnesium AM LABS Lab 09/10/21 04:00 Ordered Phosphorus AM LABS Lab 09/09/21 04:00 Ordered Phosphorus AM LABS Lab 09/10/21 04:00 Ordered Urinalysis Stat Lab 09/07/21 20:47 Uncollected Urine Culture Stat Lab 09/07/21 20:47 [place] [id number] Urgent Ultrasound 09/08/21 22:54 Taken Radiology Impressions Chest X-Ray 09/07/21 17:02 IMPRESSION: 1. Interstitial prominence in both lungs may relate to crowding but mild pulmonary edema is not excluded. 2. Mild cardiomegaly. Laboratory Results WBC 6.1 10^3/uL (4.0-10.0) 09/08/21 07:18 RBC 3.56 10^6/uL (4.1-5.3) L 09/08/21 07:18 Hgb 10.4 g/dL (11.7-16.6) L 09/08/21 07:18 Hct 37.1 % (42.0-52.0) L 09/08/21 07:18 MCV 104.2 fl (80-94) H 09/08/21 07:18 MCH 29.2 pg (28.0-34.0) 09/08/21 07:18 MCHC 28.0 g/dL (30.0-36.0) L 09/08/21 07:18 RDW 16.1 % (12.1-15.1) H 09/08/21 07:18 Plt Count 120 10^3/cmm (130-400) L 09/08/21 07:18 MPV 11.0 fL (7.4-10.4) H 09/08/21 07:18 Neut % (Auto) 64.2 % 09/08/21 07:18 Lymph % (Auto) 9.3 % 09/08/21 07:18 [place] % (Auto) 11.3 % 09/08/21 07:18 Eos % (Auto) 13.1 % 09/08/21 07:18 Baso % (Auto) 1.8 % 09/08/21 07:18 Neut # (Auto) 3.94 10^3/uL (1.8-7.7) 09/08/21 07:18 Lymph # (Auto) 0.6 10^3/uL (0.8-4.8) L 09/08/21 07:18 [place] # (Auto) 0.7 10^3/uL (0.2-0.9) 09/08/21 07:18 Eos # (Auto) 0.8 10^3/uL (0.0-0.8) 09/08/21 07:18 Baso # (Auto) 0.1 10^3/uL (0.0-0.1) 09/08/21 07:18 Nucleated RBC % (auto) 0 % 09/08/21 07:18 Nucleated RBCs # 0.0 /100WBC 09/08/21 07:18 Specimen Type Arterial 09/07/21 19:40 Sample Site Radial, right 09/07/21 19:40 ABG pH 7.28 (7.35-7.45) L 09/07/21 19:40 ABG pCO2 67.2 mmHg (35-45) H* 09/07/21 19:40 ABG pO2 79.4 mmHg (80.0-100.0) L 09/07/21 19:40 ABG HCO3 31.4 mmol/L (22-26) H 09/07/21 19:40 ABG Base Excess 3.3 mmol/L (-2.0-2.0) H 09/07/21 19:40 Jesus Test Pos 09/07/21 19:40 Hematocrit 30.8 % (42-52) L 09/07/21 19:40 O2 Delivery Device Bipap 09/07/21 19:40 O2 Liters/Min 3.0 % 09/07/21 17:32 FiO2 32.0 % 09/07/21 19:40 Energy And Sustainability Manager ID Hinja 09/07/21 19:40 Sodium 139 mmol/L (136-145) 09/08/21 07:18 Potassium 4.3 mmol/L (3.5-5.1) 09/08/21 07:18 Chloride 100 mmol/L (98-107) 09/08/21 07:18 Carbon Dioxide 25 mmol/L (22-29) 09/08/21 07:18 Anion Gap 18.3 (5-19) 09/08/21 07:18 BUN 34 mg/dL (6-20) H 09/08/21 07:18 Creatinine 4.1 mg/dL (0.7-1.2) H 09/08/21 07:18 GFR Calculation 15.5 mL/min (90-130) L 09/08/21 07:18 Glucose 95 mg/dL (65-115) 09/08/21 07:18 POC Glucose 95 mg/dL (70-110) 09/08/21 07:48 Calculated Osmolality 295 mOsm/kg (285-295) 09/08/21 07:18 Lactic Acid 0.8 mmol/L (0.5-2.2) 09/07/21 21:49 Calcium 9.4 mg/dL (8.5-10.5) 09/08/21 07:18 Phosphorus 4.7 mg/dL (2.5-4.5) H 09/08/21 07:18 Magnesium 2.2 mg/dL (1.7-2.3) 09/08/21 07:18 Total Bilirubin 0.5 mg/dL (0.15-1.2) 09/08/21 07:18 AST 16 U/L (0-40) 09/08/21 07:18 ALT 15 U/L (0-41) 09/08/21 07:18 Alkaline Phosphatase 111 IU/L (40-130) 09/08/21 07:18 Troponin T Baseline 311 ng/L (0-15) H* 09/07/21 17:52 Troponin T 120 Minute 303.2 ng/L (0-15) H 09/07/21 19:56 Delta Troponin T -7.8 ABS# (0-10) L 09/07/21 19:56 C-Reactive Protein 23.7 mg/L (0.0-4.9) H 09/07/21 17:52 NT-Pro-B Natriuret Pep 54842 pg/mL (0-125) H 09/08/21 07:18 Total Protein 7.1 g/dL (6.6-8.7) 09/08/21 07:18 Albumin 4.0 g/dL (3.5-5.2) 09/08/21 07:18 Globulin 3.1 g/dL (1.3-4.6) 09/08/21 07:18 Procalcitonin 0.45 ng/mL (0-0.5) 09/07/21 17:52 Vitals Last Vital Signs Temp 97.2 F L 09/08/21 16:23 Pulse 106 H 09/08/21 16:23 Resp 18 09/08/21 16:23 BP 168/86 09/08/21 16:23 Pulse Ox 97 09/08/21 16:00 Discharge Plan Discharge Patient Disposition: Home Condition: Stable Prescriptions: Continued ofloxacin 0.3 % drops 2 drp otic (ear) ONCE PRN (Reason: Tubes in tympanic membranes) Qty: 10 12RF Rx Instructions: Apply 2 drops to each ear after water exposure (DME) Wheel Chair See Rx Instructions .Route .MEDSUPPLY Qty: 1 0RF Rx Instructions: As directed HOME aspirin 81 mg Tablet,Delayed Release (Dr/Ec) 81 mg PO QAM 0RF isosorbide mononitrate 120 mg Tablet Extended Release 24 Hr 120 mg PO DAILY 0RF sodium bicarbonate 650 mg tablet 650 mg PO TID 0RF sevelamer carbonate 800 mg tablet See Rx Instructions .ROUTE .COMPLEX 0RF Rx Instructions: 2 tabs po tid with meals and 1 tab po bid with snacks venlafaxine 150 mg capsule,extended release 24hr 150 mg PO DAILY 0RF RenaPlex-D 800 mcg-12.5 mg -2,000 unit tablet 1 tab PO DAILY 0RF carvedilol 25 mg tablet 25 mg PO BID 0RF losartan 50 mg tablet 50 mg PO DAILY 0RF atorvastatin 80 mg tablet 80 mg PO BEDTIME 0RF Lantus U-100 Insulin 100 unit/mL solution 60 unit SUBCUT DAILY 0RF bumetanide 2 mg tablet See Rx Instructions .ROUTE .COMPLEX 0RF Rx Instructions: 2 tabs po bid on non hd days ( and ) trazodone 50 mg tablet 50 mg PO BEDTIME PRN (Reason: Sleep) 0RF clonazepam 0.5 mg tablet 0.5 mg PO BID 0RF acetaminophen 500 mg Tablet 500 mg PO Q6H PRN (Reason: Pain) 0RF lidocaine-prilocaine 2.5-2.5 % cream 1 applic topical . DIRECTED 0RF ropinirole 0.25 mg tablet 0.25 mg PO BEDTIME 0RF amlodipine 10 mg tablet 10 mg PO DAILY 0RF insulin aspart U-100 [Novolog U-100 Insulin aspart] 100 unit/mL solution See Rx Instructions .ROUTE .COMPLEX 0RF Rx Instructions: sliding scale tid with meals and hs triamcinolone acetonide 0.1 % ointment 1 applic TOPICAL BID PRN (Reason: unknown) 0RF gabapentin 300 mg capsule 300 mg PO DAILY PRN (Reason: unknown) 0RF mupirocin 2 % ointment See Rx Instructions .ROUTE .COMPLEX 0RF Rx Instructions: use daily on right montero with dressing change hydroxyzine pamoate 25 mg capsule 25 mg PO DAILY PRN (Reason: Itching) 0RF Rexulti 0.25 mg tablet 0.25 mg PO DAILY 0RF Lokelma 5 gram powder in packet See Rx Instructions .ROUTE .COMPLEX 0RF Rx Instructions: 1 packet (on ,,sun and sunday (non dialysis days) cefepime 1 gram recon soln 500 mg IM .after HD 42 Days Qty: 10 4RF betamethasone dipropionate 0.05 % cream 1 applic topical Q12H Qty: 45 0RF calamine-zinc oxide Lotion 1 applic topical 5XD PRN (Reason: skin irritation) Qty: 177 0RF Discontinued clonidine HCl 0.2 mg tablet 0.2 mg PO TID 0RF hydralazine 100 mg tablet 100 mg PO Q8H 0RF Discharge Orders: Discharge Order (Routine); Ordered 09/08/21 Ordered By: Jacqui Ascencio Referrals: Sulma Wetzel MD [Primary Care Provider] - (PLEASE CALL FOR APPOINTMENT FOR HOSPITAL FOLLOW UP) Patient Instructions: Heart Failure (ED), CHF Stoplight, Opioid Safety Discharge Attestations Time Spent in Discharge Care*: less than 30 min Status at Discharge: Cognitive status at discharge: cognitively intact , Behavioral status at discharge: cooperative , Quality Metrics Clinical Quality Measures [ No reported AMI, CVA or VTE this stay] Coding Level of Care Code Acute Chg FW DC note Diagnoses Status post dialysis Z99.2 Fluid overload E87.70 Hypercapnic respiratory failure J96.92
[2021-09-08 21:55] LABS: Glucose Point of Care 89 mg/dL (70-110)
--- NOTE | 2021-09-08 22:54 | USCV_ITS ---
Akil Velasco Age: 51 Gender: M : 1970 Exam Date: 09/08/2021 06:38 Ordering Phys: Julio C Bal MD Technologist: JENNIFER [place] [facility] [place]: SWELLING HISTORY: Lower extremity swelling. PROCEDURES: Venous duplex imaging was performed in bilateral lower extremities. The following venous structures were evaluated: common femoral vein, profunda vein, proximal portion of the greater saphenous vein, superficial femoral vein, and the popliteal vein. In addition, the posterior tibial and peroneal trunk were evaluated. FINDINGS: Normal 2-D Doppler and augmentation and compressibility throughout the lower extremity venous structures. Additional imaging through the proximal calf veins also reveals no thrombus. Limited evaluation of the greater saphenous vein is patent with no thrombus. There is subcutaneous bilateral lower extremity edema noted. CONCLUSIONS No DVT bilateral lower extremities. Dr. Lynn Holt DO (Electronically Signed) Final Date: 12 September 2021 12:45 S
== END 2021-09-08 19:35 | disposition home or self-care (01) ==
LOC: ER 18:07 → ER IP 22:45 → MEDSURG 09-08 10:17
PROVIDERS: Admitting Provider Family Medicine; Emergency Provider Emergency Medicine; PCP Internal Medicine; Visit Provider Student in an Organized Health Care Education/Training Program
DX: E87.70 Fluid overload, unspecified (principal); Z99.2 Dependence on renal dialysis; J96.02 Acute respiratory failure with hypercapnia; J96.01 Acute respiratory failure with hypoxia; E11.42 Type 2 diabetes mellitus with diabetic polyneuropathy; Z79.4 Long term (current) use of insulin; E11.22 Type 2 diabetes mellitus with diabetic chronic kidney disease; I13.2 Hypertensive heart and chronic kidney disease with heart failure and with stage 5 chronic kidney disease, or end stage renal disease; N18.6 End stage renal disease; I50.43 Acute on chronic combined systolic (congestive) and diastolic (congestive) heart failure; J96.10 Chronic respiratory failure, unspecified whether with hypoxia or hypercapnia; Z99.81 Dependence on supplemental oxygen; Z91.15 Patient's noncompliance with renal dialysis; Z79.82 Long term (current) use of aspirin; M79.89 Other specified soft tissue disorders; J44.9 Chronic obstructive pulmonary disease, unspecified; E66.01 Morbid (severe) obesity due to excess calories; Z68.42 Body mass index [BMI] 45.0-49.9, adult; G47.33 Obstructive sleep apnea (adult) (pediatric); I44.0 Atrioventricular block, first degree; I25.2 Old myocardial infarction
CPT/HCPCS: 36415; 36416; 36600; 71045; 80048; 80053; 82803; 82962; 83605; 83735; 83880; 84100; 84145; 84484; 85025; 86140; 87040; 87641; 93005; 93970; 94660; 96365; 96372; 96375; 99285; C9113; G0378; J0692; J1644; J3490

== ENCOUNTER 2021-09-12 08:29 | Outpatient (CLI) | payer MEDICARE, MEDICAID, SELFPAY ==
[2021-09-12 09:10] LABS: Blood Gas Operator Identificat AMH; Blood Gas Sample Type Arterial; Carboxyhemoglobin 1.7 %THgb (0.4-20.1); Ionized Calcium Level - ABG 1.2 mmol/L (1.1-1.4); Oxygen Device ROOM AIR
[2021-09-12 17:38] LABS: ABG PCO2 62.3 mmHg (35-45); ABG PH Result 7.26 (7.35-7.45); Arterial Blood Gas Hematocrit 32.7 % (42-52); Base Excess ABG -0.3 mmol/L (-2.0-2.0); Blood Gas Sample Site Brachial, right; HCO3 ABG 27.8 mmol/L (22-26); HGB O2 Sat 58.7 % (95-100); Oxygen Saturation ABG 60.3; Potassium Level - ABG 4.7 mmol/L (3.5-5.0); Total Hemoglobin 10.7 g/dL (14-18)
[2021-09-12 21:18] LABS: Glucose Point of Care 168 mg/dL (70-110)
[2021-09-13 06:48] LABS: Glucose Point of Care 113 mg/dL (70-110)
[2021-09-13 11:12] LABS: Glucose Point of Care 207 mg/dL (70-110)
== END 2021-09-12 08:30 | disposition home or self-care (01) ==
LOC: LAB 08:35
PROVIDERS: PCP Internal Medicine; Visit Provider Emergency Medicine
DX: J96.01 Acute respiratory failure with hypoxia (principal)
CPT/HCPCS: 36416; 36600; 80051; 82330; 82805; 82962

== ENCOUNTER 2021-09-12 09:28 | Observation (INO) | payer MEDICARE, MEDICAID, SELFPAY ==
[2021-09-12] VITALS (15 sets, daily range): BP systolic 112–162; BP diastolic 63–107; PULSE 57–95; RESP 14–20; TEMP 35.7–36.7; O2SAT 90–100; BMI 50.1; BMI 45.6
--- NOTE | 2021-09-12 09:42 | ED_ITS ---
HPI - SOB/Dyspnea General: Chief Complaint: Altered Mental Status Stated Complaint: ABG Time Seen by Provider: 09/12/21 09:37 Source: patient Mode of arrival: wheelchair History of Present Illness: HPI Narrative: 51-year-old male presented to wound care today for routine appointment was found to have oxygen sats 73% on room air. He was sent for an ABG appear to be in profound respiratory distress RT appropriately brought him directly to trauma by after calling ahead to advise us. On arrival patient is somewhat lethargic. He was supposed to go on the hyper Tani oxygen chamber today and took a Valium 5 mg p.o. He denies any chest pain. He is scheduled for his regular dialysis run today MD elicited complaint: shortness of breath and cough Pertinent past history: congestive heart failure Onset (ago): hour(s) Timing: constant Severity: severe Exacerbating factors: lying flat and exertion Relieving factors: oxygen and rest Known history of: congestive heart failure and other (End-stage renal disease) Associated symptoms: Deny abdominal pain, chest congestion, chest pain, cough, diaphoresis, dizziness, extremity pain, fever(s), hemoptysis, lightheadedness, myalgias, nausea, orthopnea, palpitations, paresthesias, polydipsia, polyuria, rash, sense of impending doom, syncope or vomiting Treatment prior to arrival: none Review of Systems Const: Denies: fever(s) or diaphoresis ENMT: Denies: throat pain, ear or mastoid pain, nasal discharge or nasal congestion Card: Denies: chest pain, palpitations, lightheadedness, syncope or orthopnea Resp: Denies: hemoptysis or chest congestion GI: Denies: abdominal pain, nausea or vomiting : Denies: flank pain, dysuria, urinary frequency or urinary urgency Musc: Denies: extremity pain Skin/Breast: Denies: rash or pruritus Neuro: Denies: dizziness Endo: Denies: polyuria or polydipsia PFS ED PFSH: Medical History Accelerated hypertension Acute on chronic diastolic (congestive) heart failure Acute respiratory failure with hypoxia Acute respiratory failure with hypoxia and hypercapnia Chbjt-rj-ifgrffu kidney injury Anasarca Anemia Anemia ARDS (adult respiratory distress syndrome) Cancer Cardiac arrest Cataract (lens) fragments in eye following cataract surgery, bilateral CHF (congestive heart failure), NYHA class III Chronic kidney disease Chronic kidney disease, stage IV (severe) Chronic respiratory failure with hypoxia and hypercapnia CKD stage 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 Congestive cardiac failure COPD (chronic obstructive pulmonary disease) Diabetes Diabetes Elevated troponin End stage renal disease on dialysis ESRD on dialysis First degree heart block Fracture of fifth metatarsal bone of left foot Fracture of fourth metatarsal bone of left foot Heart failure History of renal cell carcinoma Hypertension Hypertension Laceration Metabolic alkalosis Morbid obesity with BMI of 40.0-44.9, adult Neuropathy Obesity hypoventilation syndrome Obstructive sleep apnea Pneumonia due to 2018-nCo PVD (peripheral vascular disease) Renal cell carcinoma History bilateral renal cell carcinoma 2007 then recurrence on the contralateral side 2011. No recurrence for long-term follow-up with some suspicion on CT scan April 2020. Respiratory failure with hypoxia and hypercapnia Respiratory failure with hypoxia and hypercapnia Restrictive lung disease Sinus bradycardia Syncope Type 2 diabetes mellitus with diabetic polyneuropathy Urinary retention Surgical History H/O partial nephrectomy bilateral H/O wisdom tooth extraction Hx of lymph node excision Family History Father , AT AGE 65 Diabetes Cancer Metastatic prostate cancer to liver Mother , AT AGE 72 Diabetes Grandfather Diabetes Cancer Other Hyperlipidemia Social History Second hand smoke exposure: Yes Smoking risk assessment/counseling performed?: Yes Alcohol intake: current Alcohol intake frequency: holidays/special occasions only Lives independently: Yes Household members: spouse Housing: House Marital status: service: No Current occupational status: retired Pets and animals: Yes History of recent travel: No Current gender identity: Male Physical Exam Const: GENERAL APPEARANCE: cooperative ORIENTATION/CONSCIOUSNESS: Yes oriented to person, Yes oriented to place and Yes oriented to time HENMT: COMMON NORMALS: normocephalic, atraumatic and hearing grossly normal bilaterally HEAD & SCALP: normocephalic and atraumatic Neck/C-Spine: COMMON NORMALS: no JVD Resp: AUSCULTATION: crackles and diminished lung sounds Cardio: COMMON NORMALS: no JVD, regular rate, regular rhythm and No murmurs present (Cardio) RATE: regular rate RHYTHM: regular rhythm GI: COMMON NORMALS: Soft to palpation and No hepatosplenomegaly present AUSCULTATION: Yes normoactive bowel sounds PALPATION: Yes Soft to palpation, No Tenderness to palpation present (GI), No Guarding due to palpation present (GI) and Yes No hepatosplenomegaly present Extremity: COMMON NORMALS: normal to inspection, capillary refill normal, no clubbing, cyanosis or edema, no calf tenderness and no pedal edema Neuro: SENSORIUM/ORIENTATION: Yes oriented to person, Yes oriented to place and Yes oriented to time Skin: COMMON NORMALS: no rashes or lesions noted GENERAL SKIN EXAM: no rashes or lesions noted Course Vital Signs: Vital signs: Vital Signs Temperature 98.1 F 09/12/21 09:40 Pulse Rate 57 L 09/12/21 11:07 Respiratory Rate 17 09/12/21 11:07 Blood Pressure 157/94 09/12/21 11:07 Pulse Oximetry 98 09/12/21 11:07 MDM - SOB/Dyspnea Medical Decision Making Acute hypercapnic respiratory failure. Think is brought about by the use of the Valium. He has had this multiple times before he is improving on his second blood gases pH has not gotten any better but his PCO2 and his PO2 of both been moving in the right direction he will Require continued hospitalization discussed with hospitalist orders written. Also consulted nephrology he was due for his regular dialysis run today. He does have an elevated troponin is not been having any chest pain hospitalist is aware I suspect that is in large part due to his end-stage renal disease. Medical Records I reviewed the patient's medical records. Lab Data I reviewed the patient's lab results. : 09/12/21 10:18 09/12/21 10:18 Labs/Radiology: Radiology Impressions Chest X-Ray 09/12/21 09:50 IMPRESSION: 1. Stable cardiomegaly. 2. Mild perihilar pulmonary vascular congestion. 3. No pleural fluid or focal pneumonia. Laboratory Results WBC 6.6 10^3/uL (4.0-10.0) 09/12/21 10:18 RBC 3.42 10^6/uL (4.1-5.3) L 09/12/21 10:18 Hgb 10.2 g/dL (11.7-16.6) L 09/12/21 10:18 Hct 34.5 % (42.0-52.0) L 09/12/21 10:18 MCV 100.9 fl (80-94) H 09/12/21 10:18 MCH 29.8 pg (28.0-34.0) 09/12/21 10:18 MCHC 29.6 g/dL (30.0-36.0) L 09/12/21 10:18 RDW 16.4 % (12.1-15.1) H 09/12/21 10:18 Plt Count 125 10^3/cmm (130-400) L 09/12/21 10:18 MPV 10.4 fL (7.4-10.4) 09/12/21 10:18 Neut % (Auto) 67.3 % 09/12/21 10:18 Lymph % (Auto) 9.4 % 09/12/21 10:18 [place] % (Auto) 10.8 % 09/12/21 10:18 Eos % (Auto) 10.8 % 09/12/21 10:18 Baso % (Auto) 1.1 % 09/12/21 10:18 Neut # (Auto) 4.44 10^3/uL (1.8-7.7) 09/12/21 10:18 Lymph # (Auto) 0.6 10^3/uL (0.8-4.8) L 09/12/21 10:18 [place] # (Auto) 0.7 10^3/uL (0.2-0.9) 09/12/21 10:18 Eos # (Auto) 0.7 10^3/uL (0.0-0.8) 09/12/21 10:18 Baso # (Auto) 0.1 10^3/uL (0.0-0.1) 09/12/21 10:18 Nucleated RBC % (auto) 0.3 % 09/12/21 10:18 Nucleated RBCs # 0.0 /100WBC 09/12/21 10:18 Specimen Type Arterial 09/12/21 10:20 Sample Site Radial, right 09/12/21 10:20 ABG pH 7.27 (7.35-7.45) L 09/12/21 10:20 ABG pCO2 57.5 mmHg (35-45) H 09/12/21 10:20 ABG pO2 95.8 mmHg (80.0-100.0) 09/12/21 10:20 ABG HCO3 26.5 mmol/L (22-26) H 09/12/21 10:20 ABG O2 Saturation 97.0 09/12/21 10:20 ABG Base Excess -1.0 mmol/L (-2.0-2.0) 09/12/21 10:20 Jesus Test Pos 09/12/21 10:20 A-a O2 Gradient 6.4 mmHg (5-10) 09/12/21 10:20 Hematocrit 31.7 % (42-52) L 09/12/21 10:20 Hgb O2 Saturation 94.4 % (95-100) L 09/12/21 10:20 Carboxyhemoglobin 1.7 %THgb (0.4-20.1) 09/12/21 10:20 Methemoglobin 1.0 % (0.4-1.5) 09/12/21 10:20 Total Hemoglobin 10.3 g/dL (14-18) L 09/12/21 10:20 Sodium 139.0 mmol/L (131-143) 09/12/21 10:20 Potassium 4.6 mmol/L (3.5-5.0) 09/12/21 10:20 Glucose 155.0 mg/dL (70-115) H 09/12/21 10:20 Ionized Calcium 1.2 mmol/L (1.1-1.4) 09/12/21 10:20 O2 Delivery Device Bipap 09/12/21 10:20 FiO2 30.0 % 09/12/21 10:20 Automation Technologist ID Ed 09/12/21 10:20 Sodium 134 mmol/L (136-145) L 09/12/21 10:18 Potassium 4.7 mmol/L (3.5-5.1) 09/12/21 10:18 Chloride 97 mmol/L (98-107) L 09/12/21 10:18 Carbon Dioxide 24 mmol/L (22-29) 09/12/21 10:18 Anion Gap 17.7 (5-19) 09/12/21 10:18 BUN 41 mg/dL (6-20) H 09/12/21 10:18 Creatinine 6.2 mg/dL (0.7-1.2) H* 09/12/21 10:18 GFR Calculation 9.6 mL/min (90-130) L 09/12/21 10:18 Glucose 157 mg/dL (65-115) H 09/12/21 10:18 Calculated Osmolality 291 mOsm/kg (285-295) 09/12/21 10:18 Calcium 8.2 mg/dL (8.5-10.5) L 09/12/21 10:18 Total Bilirubin 0.4 mg/dL (0.15-1.2) 09/12/21 10:18 AST 14 U/L (0-40) 09/12/21 10:18 ALT 14 U/L (0-41) 09/12/21 10:18 Alkaline Phosphatase 123 IU/L (40-130) 09/12/21 10:18 Creatine Kinase 75 U/L (39-308) 09/12/21 10:18 Troponin T Baseline 444 ng/L (0-15) H* 09/12/21 10:18 Total Protein 6.6 g/dL (6.6-8.7) 09/12/21 10:18 Albumin 3.9 g/dL (3.5-5.2) 09/12/21 10:18 Globulin 2.7 g/dL (1.3-4.6) 09/12/21 10:18 Discharge Plan Discharge Patient Disposition: Admitted As Inpatient Clinical Impression: Acute and chronic respiratory failure with hypercapnia, Osteomyelitis, ESRD (end stage renal disease) on dialysis, Uncontrolled diabetes mellitus, Diabetic ulcer of left foot Condition: Stable Prescriptions: No Action ofloxacin 0.3 % drops 2 drp otic (ear) ONCE PRN (Reason: Tubes in tympanic membranes) Qty: 10 12RF Rx Instructions: Apply 2 drops to each ear after water exposure (DME) Wheel Chair See Rx Instructions .Route .MEDSUPPLY Qty: 1 0RF Rx Instructions: As directed HOME aspirin 81 mg Tablet,Delayed Release (Dr/Ec) 81 mg PO QAM 0RF isosorbide mononitrate 120 mg Tablet Extended Release 24 Hr 120 mg PO DAILY 0RF sodium bicarbonate 650 mg tablet 650 mg PO TID 0RF sevelamer carbonate 800 mg tablet See Rx Instructions .ROUTE .COMPLEX 0RF Rx Instructions: 2 tabs po tid with meals and 1 tab po bid with snacks venlafaxine 150 mg capsule,extended release 24hr 150 mg PO DAILY 0RF RenaPlex-D 800 mcg-12.5 mg -2,000 unit tablet 1 tab PO DAILY 0RF carvedilol 25 mg tablet 25 mg PO BID 0RF losartan 50 mg tablet 50 mg PO DAILY 0RF atorvastatin 80 mg tablet 80 mg PO BEDTIME 0RF Lantus U-100 Insulin 100 unit/mL solution 60 unit SUBCUT DAILY 0RF bumetanide 2 mg tablet See Rx Instructions .ROUTE .COMPLEX 0RF Rx Instructions: 2 tabs po bid on non hd days ( and ) trazodone 50 mg tablet 50 mg PO BEDTIME PRN (Reason: Sleep) 0RF clonazepam 0.5 mg tablet 0.5 mg PO BID 0RF acetaminophen 500 mg Tablet 500 mg PO Q6H PRN (Reason: Pain) 0RF lidocaine-prilocaine 2.5-2.5 % cream 1 applic topical . DIRECTED 0RF ropinirole 0.25 mg tablet 0.25 mg PO BEDTIME 0RF amlodipine 10 mg tablet 10 mg PO DAILY 0RF insulin aspart U-100 [Novolog U-100 Insulin aspart] 100 unit/mL solution See Rx Instructions .ROUTE .COMPLEX 0RF Rx Instructions: sliding scale tid with meals and hs triamcinolone acetonide 0.1 % ointment 1 applic TOPICAL BID PRN (Reason: unknown) 0RF gabapentin 300 mg capsule 300 mg PO DAILY PRN (Reason: unknown) 0RF mupirocin 2 % ointment See Rx Instructions .ROUTE .COMPLEX 0RF Rx Instructions: use daily on right montero with dressing change hydroxyzine pamoate 25 mg capsule 25 mg PO DAILY PRN (Reason: Itching) 0RF Rexulti 0.25 mg tablet 0.25 mg PO DAILY 0RF Lokelma 5 gram powder in packet See Rx Instructions .ROUTE .COMPLEX 0RF Rx Instructions: 1 packet (on ,,sun and sunday (non dialysis days) cefepime 1 gram recon soln 500 mg IM .after HD 42 Days Qty: 10 4RF betamethasone dipropionate 0.05 % cream 1 applic topical Q12H Qty: 45 0RF calamine-zinc oxide Lotion 1 applic topical 5XD PRN (Reason: skin irritation) Qty: 177 0RF Referrals: Sulma Wetzel MD [Primary Care Provider] - Coding Level of Care Code ED Burn Crew Member for Chg Fwd Exam Comprehensive
--- NOTE | 2021-09-12 09:49 | ECG_ITS ---
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 Measurements Intervals [place] Rate: 59 P: 32 SC: 213 QRS: 121 QRSD: 109 T: 12 QT: 445 QTc: 443 Interpretive Statements SINUS BRADYCARDIA WITH FIRST DEGREE AV BLOCK POSSIBLE RIGHT VENTRICULAR HYPERTROPHY [SOME/ALL OF: PROMINENT R IN V1, LATE TRANSITION, RAD, JERMOE, SSS] SEPTAL MYOCARDIAL INFARCTION , PROBABLY OLD [40+ ms Q WAVE IN V1/V2] Compared to ECG 09/07/2021 19:22:56 First degree AV block now present Atrial abnormality now present Sinus rhythm no longer present Myocardial infarct finding still present Electronically Signed On 09-12-2021 18:07:24 PEARL MAKER by Erik Arguelles M.D. [id number]
--- NOTE | 2021-09-12 09:50 | XR_ITS ---
WS: [id number] CHEST XRAY TECHNIQUE: Portable chest. CLINICAL INFORMATION: dyspnea/cough COMPARISON: September 07, 2021 FINDINGS: Shallow inspiration. Heart: Cardiomegaly. Lungs: More shallow inspiration today. Mild pulmonary vascular congestion. No pleural fluid or focal pneumonia. Bones: Normal visualized bony structures. XR/XR chest 1V portable [id number] IMPRESSION: 1. Stable cardiomegaly. 2. Mild perihilar pulmonary vascular congestion. 3. No pleural fluid or focal pneumonia.
[2021-09-12 10:26] LABS: Basophils # 0.1 10^3/uL (0.0-0.1); Basophils % 1.1 %; Eosinophils # 0.7 10^3/uL (0.0-0.8); Eosinophils % 10.8 %; Hematocrit 34.5 % (42.0-52.0); Hemoglobin 10.2 g/dL (11.7-16.6); Lymphocytes # 0.6 10^3/uL (0.8-4.8); Lymphocytes % 9.4 %; Mean Corpuscular HGB Conc 29.6 g/dL (30.0-36.0); Mean Corpuscular Hemoglobin 29.8 pg (28.0-34.0); Mean Corpuscular Volume 100.9 fl (80-94); Mean Platelet Volume 10.4 fL (7.4-10.4); Monocytes # 0.7 10^3/uL (0.2-0.9); Monocytes % 10.8 %; Neutrophils # 4.44 10^3/uL (1.8-7.7); Neutrophils % 67.3 %; Nucleated Red Blood Cells % 0.3 %; Platelet Count 125 10^3/cmm (130-400); Red Blood Count 3.42 10^6/uL (4.1-5.3); Red Cell Distribution Width 16.4 % (12.1-15.1); White Blood Count 6.6 10^3/uL (4.0-10.0)
[2021-09-12 10:30] LABS: ABG PCO2 57.5 mmHg (35-45); ABG PH Result 7.27 (7.35-7.45); Arterial Blood Gas Hematocrit 31.7 % (42-52); Blood Gas Allen Test Pos; Blood Gas Sample Type Arterial; Carboxyhemoglobin 1.7 %THgb (0.4-20.1); HCO3 ABG 26.5 mmol/L (22-26); HGB O2 Sat 94.4 % (95-100); Ionized Calcium Level - ABG 1.2 mmol/L (1.1-1.4); PO2 ABG 95.8 mmHg (80.0-100.0); Potassium Level - ABG 4.6 mmol/L (3.5-5.0); Total Hemoglobin 10.3 g/dL (14-18)
[2021-09-12 10:31] LABS: Alveolar-Arterial Oxygen Gradi 6.4 mmHg (5-10); Blood Gas Operator Identificat ED; Blood Gas Sample Site Radial, right; Oxygen Device BIPAP
[2021-09-12 10:47] LABS: Alanine Aminotransferase 14 U/L (0-41); Albumin Level 3.9 g/dL (3.5-5.2); Alkaline Phosphatase 123 IU/L (40-130); Anion Gap 17.7 (5-19); Aspartate Amino Transferase 14 U/L (0-40); Blood Urea Nitrogen 41 mg/dL (6-20); Calcium 8.2 mg/dL (8.5-10.5); Carbon Dioxide 24 mmol/L (22-29); Chloride 97 mmol/L (98-107); Creatine Phosphokinase 75 U/L (39-308); Globulin 2.7 g/dL (1.3-4.6); Glomerular Filtration Rate 9.6 mL/min (90-130); Glucose 157 mg/dL (65-115); Osmolality Calculated 291 mOsm/kg (285-295); Potassium 4.7 mmol/L (3.5-5.1); Sodium 134 mmol/L (136-145); Total Bilirubin 0.4 mg/dL (0.15-1.2); Total Protein 6.6 g/dL (6.6-8.7)
[2021-09-12 11:03] LABS: Troponin(5th) Baseline 444 ng/L (0-15)
--- NOTE | 2021-09-12 11:03 | P.CONIM_ITS ---
Providers/Reason For Consult Consulting Physician/Specialty*: domonique patel md / telenephrology Reason for Consult*: ESRD care Requesting Physician: Dr. Paulino Primary Care Provider: Sulma Wetzel MD History of Present Illness History of Present Illness Akil Velasco is a 51 year old male past medical history of insulin-dependent type 2 diabetes mellitus, hypertension, heart failure with preserved ejection fraction, chronic respiratory failure on 2.5 L on BiPAP history of end-stage renal disease on dialysis Sunday, anxiety and depression, left foot diabetic ulcer status post debridement wound cultures growing Pseudomonas on cefepime currently ambulating in a cam boot. Pt went to wound center today and became hypoxic / hypercapneic- now on bipap. Pt sent to ER. Renal called for HD. pt is lethargic, confused, weak, sob. can not get further hx..? Review of Systems Narrative: sob, pain, swollen, confused, lethargic, swollen, ascites, ESRD pt Medications/Allergies Home Medications Medication Instructions Recorded Confirmed Last Taken Type aspirin 81 mg tablet,delayed 81 mg PO QAM 10/04/20 09/07/21 09/06/21 History release isosorbide mononitrate 120 mg 120 mg PO DAILY 10/04/20 09/07/21 09/06/21 History tablet,extended release 24 hr sevelamer carbonate 800 mg tablet See Rx Instructions .ROUTE .COMPLEX 11/11/20 09/07/21 09/06/21 History sodium bicarbonate 650 mg tablet 650 mg PO TID 11/11/20 09/07/21 09/06/21 History carvedilol 25 mg tablet 25 mg PO BID 04/25/21 09/07/21 09/06/21 History vit B,C-folic ac 800 mcg-zinc 12.5 1 tab PO DAILY 04/25/21 09/07/21 09/06/21 History mg-selen-D3 2,000 unit-vit E tablet (RenaPlex-D) ofloxacin 0.3 % eye drops 2 drp OTIC (EAR) ONCE PRN #10 ml 08/16/21 09/07/21 Unknown Rx Wheel Chair #1 ea 08/18/21 09/07/21 Unknown Rx acetaminophen 500 mg tablet 500 mg PO Q6H PRN 08/22/21 09/07/21 Unknown History amlodipine 10 mg tablet 10 mg PO DAILY 08/22/21 09/07/21 09/06/21 History atorvastatin 80 mg tablet 80 mg PO BEDTIME 08/22/21 09/07/21 09/06/21 History brexpiprazole 0.25 mg tablet 0.25 mg PO DAILY 08/22/21 09/07/21 09/06/21 History (Rexulti) bumetanide 2 mg tablet See Rx Instructions .ROUTE .COMPLEX 08/22/21 09/07/21 09/06/21 History clonazepam 0.5 mg tablet 0.5 mg PO BID 08/22/21 09/07/21 09/06/21 History gabapentin 300 mg capsule 300 mg PO DAILY PRN 08/22/21 09/07/21 09/06/21 History hydroxyzine pamoate 25 mg capsule 25 mg PO DAILY PRN 08/22/21 09/07/21 Unknown History insulin aspart U-100 100 unit/mL See Rx Instructions .ROUTE .COMPLEX 08/22/21 09/07/21 Unknown History subcutaneous solution (Novolog U-100 Insulin aspart) insulin glargine 100 unit/mL 60 unit SUBCUT DAILY 08/22/21 09/07/21 09/06/21 History subcutaneous solution (Lantus U-100 Insulin) lidocaine-prilocaine 2.5 %-2.5 % 1 applic TOPICAL . DIRECTED 08/22/21 09/07/21 Unknown History topical cream losartan 50 mg tablet 50 mg PO DAILY 08/22/21 09/07/21 09/06/21 History mupirocin 2 % topical ointment See Rx Instructions .ROUTE .COMPLEX 08/22/21 09/07/21 Unknown History ropinirole 0.25 mg tablet 0.25 mg PO BEDTIME 08/22/21 09/07/21 09/06/21 History sodium zirconium cyclosilicate 5 See Rx Instructions .ROUTE .COMPLEX 08/22/21 09/07/21 09/06/21 History gram oral powder packet (Lokelma) trazodone 50 mg tablet 50 mg PO BEDTIME PRN 08/22/21 09/07/21 Unknown History triamcinolone acetonide 0.1 % 1 applic TOPICAL BID PRN 08/22/21 09/07/21 Unknown History topical ointment betamethasone dipropionate 0.05 % 1 applic TOPICAL Q12H #45 g 08/26/21 09/07/21 09/06/21 Rx topical cream calamine-zinc oxide lotion 1 applic TOPICAL 5XD PRN #177 ml 08/26/21 09/07/21 Unknown Rx cefepime 1 gram solution for 500 mg IM .after HD 42 Days #10 ea 08/26/21 09/07/21 Unknown Rx injection venlafaxine 150 mg 150 mg PO DAILY 09/07/21 09/07/21 09/06/21 History capsule,extended release 24 hr Allergies Allergy/AdvReac Type Severity Reaction Status Date / Time vancomycin Allergy Unknown Rash Verified 09/12/21 09:39 dextrose 5 % in water Allergy tendonitis Verified 09/12/21 09:39 [From Zyvox] linezolid [From Zyvox] Allergy tendonitis Verified 09/12/21 09:39 ciprofloxacin [From Cipro] AdvReac Severe Tendonitis Verified 09/12/21 09:39 PFSH Acute PFSH: Medical History Accelerated hypertension Acute on chronic diastolic (congestive) heart failure Acute respiratory failure with hypoxia Acute respiratory failure with hypoxia and hypercapnia [id number] kidney injury Anasarca Anemia Anemia ARDS (adult respiratory distress syndrome) Cancer Cardiac arrest Cataract (lens) fragments in eye following cataract surgery, bilateral CHF (congestive heart failure), NYHA class III Chronic kidney disease Chronic kidney disease, stage IV (severe) Chronic respiratory failure with hypoxia and hypercapnia CKD stage 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 Congestive cardiac failure COPD (chronic obstructive pulmonary disease) Diabetes Diabetes Elevated troponin End stage renal disease on dialysis ESRD on dialysis First degree heart block Fracture of fifth metatarsal bone of left foot Fracture of fourth metatarsal bone of left foot Heart failure History of renal cell carcinoma Hypertension Hypertension Laceration Metabolic alkalosis Morbid obesity with BMI of 40.0-44.9, adult Neuropathy Obesity hypoventilation syndrome Obstructive sleep apnea Pneumonia due to 2018-nCo PVD (peripheral vascular disease) Renal cell carcinoma History bilateral renal cell carcinoma 2007 then recurrence on the contralateral side 2011. No recurrence for long-term follow-up with some suspicion on CT scan April 2020. Respiratory failure with hypoxia and hypercapnia Respiratory failure with hypoxia and hypercapnia Restrictive lung disease Sinus bradycardia Syncope Type 2 diabetes mellitus with diabetic polyneuropathy Urinary retention Surgical History H/O partial nephrectomy bilateral H/O wisdom tooth extraction Hx of lymph node excision Family History Father , AT AGE 65 Diabetes Cancer Metastatic prostate cancer to liver Mother , AT AGE 72 Diabetes Grandfather Diabetes Cancer Other Hyperlipidemia Social History Second hand smoke exposure: Yes Smoking risk assessment/counseling performed?: Yes Alcohol intake: current Alcohol intake frequency: holidays/special occasions only Lives independently: Yes Household members: spouse Housing: House Marital status: service: No Current occupational status: retired Pets and animals: Yes History of recent travel: No Current gender identity: Male Vitals/I&O/Wt Last Vital Signs Temp 98.1 F 09/12/21 09:40 Pulse 57 L 09/12/21 10:54 Resp 17 09/12/21 10:54 BP 135/76 09/12/21 10:54 Pulse Ox 100 09/12/21 10:54 Weight last 48 hrs Weight 172.365 kg Physical Exam Narrative: obese, in bed, on bipap, sob heent- nc/at, eomi, anicteric neck obese lungs crackles b/l heart- reg, no rub abd soft, nt, nd, + bs ext b/l edema neuro- confused, lethargic Data : 09/12/21 10:18 09/12/21 10:18 A&P Assessment and plan (1) ESRD (end stage renal disease) on dialysis: 51 yr old man 1. COPD/SYED- bipap -hypercapneic resp acidosis- bipap 1b. AMS- tox screen 2. ESRD- HD now- 4 hrs, 2k, remove 3.5 l as amairani 3. wound care 4. mild hyponatremia- monitor w/ HD 5. DM care per medicine 6. hgb stable 7. thrombocytopenia- stable from last week seen and examine dw/ rN- telehealth visit time spent 45 minutes discussed w/ RN and HD RN Status: Acute Plan see above Consult Attestations Medical Necessity Statement: ams, sob, hypercapneia, esrd Time Spent in Patient Care: Greater than 35 minutes (>than 50% of time spent in counselling and/or direct pt care on unit) . Coding Level of Care Code Acute Labor Delivery Specialist for Chg Fwd Diagnoses ESRD (end stage renal disease) on dialysis N18.6; Z99.2
--- NOTE | 2021-09-12 11:49 | ECG_ITS ---
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 Measurements Intervals [place] Rate: 57 P: 30 WA: 223 QRS: 87 QRSD: 104 T: 26 QT: 456 QTc: 445 Interpretive Statements SINUS BRADYCARDIA WITH FIRST DEGREE AV BLOCK LOW QRS VOLTAGE IN PRECORDIAL LEADS [QRS DEFLECTION < 1.0 mV IN CHEST LEADS] PATTERN CONSISTENT WITH PULMONARY DISEASE SEPTAL MYOCARDIAL INFARCTION , PROBABLY OLD [40+ ms Q WAVE IN V1/V2] Compared to ECG 09/12/2021 09:34:30 Low QRS voltage now present Atrial abnormality no longer present Myocardial infarct finding still present Electronically Signed On 09-12-2021 18:08:28 ESCROW ASSISTANT by Erik Arguelles M.D. [id number]
[2021-09-12 13:37] LABS: Troponin 5 2HR 448.5 ng/L (0-15); Troponin 5 2HR Delta 4.5 ABS# (0-10)
[2021-09-12 14:08] LABS: Hepatitis B Surface AB 27.8 (11.5-1000); Hepatitis B Surface Antigen Non-Reactive (Nonreactive); Hepatitis C Virus Antibody Non-Reactive (Nonreactive)
--- NOTE | 2021-09-12 14:09 | PM.HP ---
Providers/Chief Complaint Admitting Physician: Carolina Sawant MD Primary Care Provider: Sulma Wetzel MD Chief Complaint: ABG History of Present Illness Akil Velasco is a 51 year old male who presented to the emergency room from wound care clinic due to alteration of mental status. Patient was scheduled for hyperbaric oxygen therapy today. He had taken some Valium or Klonopin prior to coming to clinic. There he was extremely sleepy and difficult to arouse. Oxygen saturations were in the 70s on room air there. He was sent via EMS to the emergency room. ABG showed 7.2 / on room air. Patient was placed on BiPAP with improvement in PO2 on 30% FiO2. Patient has known obstructive sleep apnea but does not wear CPAP or BiPAP at home because it is uncomfortable to him. He was just here having been discharged on September 08. He evidently comes in not infrequently with a similar presentation or having missed his dialysis. History is difficult to obtain from him as he remains sleepy though is starting to come around. He denies chest pain. He has not had any fever. No increased shortness of breath. He has been going to wound care for wounds to both lower extremities. Left lower extremity is in a Unna boot because of wound. Information below is obtained from him and review of records. Review of Systems Const: Denies: fever(s) or chills ENMT: Denies: throat pain or nasal congestion Card: Denies: chest pain Resp: Reports: dyspnea, productive cough and non-productive cough GI: Denies: abdominal pain, nausea or vomiting : Denies: difficulty urinating Musc: Reports: extremity swelling Skin/Breast: Reports: sores and non-healing lesions; Denies: pruritus Neuro: Reports: numbness in extremities and difficulty walking Ramy/Lymph: Denies: easy bleeding Medications/Allergies Home Medications Medication Instructions Recorded Confirmed Last Taken Type aspirin 81 mg tablet,delayed 81 mg PO QAM 10/04/20 09/12/21 09/06/21 History release isosorbide mononitrate 120 mg 120 mg PO DAILY 10/04/20 09/12/21 09/06/21 History tablet,extended release 24 hr sevelamer carbonate 800 mg tablet See Rx Instructions .ROUTE .COMPLEX 11/11/20 09/12/21 09/06/21 History sodium bicarbonate 650 mg tablet 650 mg PO TID 11/11/20 09/12/21 09/06/21 History carvedilol 25 mg tablet 25 mg PO BID 04/25/21 09/12/21 09/06/21 History vit B,C-folic ac 800 mcg-zinc 12.5 1 tab PO DAILY 04/25/21 09/12/21 09/06/21 History mg-selen-D3 2,000 unit-vit E tablet (RenaPlex-D) ofloxacin 0.3 % eye drops 2 drp OTIC (EAR) ONCE PRN #10 ml 08/16/21 09/12/21 Unknown Rx Wheel Chair #1 ea 08/18/21 09/12/21 Unknown Rx acetaminophen 500 mg tablet 500 mg PO Q6H PRN 08/22/21 09/12/21 Unknown History amlodipine 10 mg tablet 10 mg PO DAILY 08/22/21 09/12/21 09/06/21 History atorvastatin 80 mg tablet 80 mg PO BEDTIME 08/22/21 09/12/21 09/06/21 History brexpiprazole 0.25 mg tablet 0.25 mg PO DAILY 08/22/21 09/12/21 09/06/21 History (Rexulti) bumetanide 2 mg tablet See Rx Instructions .ROUTE .COMPLEX 08/22/21 09/12/21 09/06/21 History clonazepam 0.5 mg tablet 0.5 mg PO BID 08/22/21 09/12/21 09/06/21 History gabapentin 300 mg capsule 300 mg PO DAILY PRN 08/22/21 09/12/21 09/06/21 History hydroxyzine pamoate 25 mg capsule 25 mg PO DAILY PRN 08/22/21 09/12/21 Unknown History insulin aspart U-100 100 unit/mL See Rx Instructions .ROUTE .COMPLEX 08/22/21 09/12/21 Unknown History subcutaneous solution (Novolog U-100 Insulin aspart) insulin glargine 100 unit/mL 60 unit SUBCUT DAILY 08/22/21 09/12/21 09/06/21 History subcutaneous solution (Lantus U-100 Insulin) lidocaine-prilocaine 2.5 %-2.5 % 1 applic TOPICAL . DIRECTED 08/22/21 09/12/21 Unknown History topical cream losartan 50 mg tablet 50 mg PO DAILY 08/22/21 09/12/21 09/06/21 History mupirocin 2 % topical ointment See Rx Instructions .ROUTE .COMPLEX 08/22/21 09/12/21 Unknown History ropinirole 0.25 mg tablet 0.25 mg PO BEDTIME 08/22/21 09/12/21 09/06/21 History sodium zirconium cyclosilicate 5 See Rx Instructions .ROUTE .COMPLEX 08/22/21 09/12/21 09/06/21 History gram oral powder packet (Lokelma) trazodone 50 mg tablet 25 mg PO BEDTIME PRN 08/22/21 09/12/21 Unknown History triamcinolone acetonide 0.1 % 1 applic TOPICAL BID PRN 08/22/21 09/12/21 Unknown History topical ointment betamethasone dipropionate 0.05 % 1 applic TOPICAL Q12H #45 g 08/26/21 09/12/21 09/06/21 Rx topical cream calamine-zinc oxide lotion 1 applic TOPICAL 5XD PRN #177 ml 08/26/21 09/12/21 Unknown Rx cefepime 1 gram solution for 500 mg IM .after HD 42 Days #10 ea 08/26/21 09/12/21 Unknown Rx injection venlafaxine 150 mg 150 mg PO DAILY 09/07/21 09/12/21 09/06/21 History capsule,extended release 24 hr clonidine HCl 0.2 mg tablet 0.2 mg PO TID PRN 09/12/21 09/12/21 Unknown History Allergies Allergy/AdvReac Type Severity Reaction Status Date / Time vancomycin Allergy Unknown Rash Verified 09/12/21 09:39 linezolid [From Zyvox] Allergy tendonitis Verified 09/12/21 09:39 ciprofloxacin [From Cipro] AdvReac Severe Tendonitis Verified 09/12/21 09:39 PFSH Acute PFSH: Medical History (Updated 09/12/21 @ 18:06 by Carolina Sawant MD) Anemia Cardiac arrest (~07/2020) when had covid CHF (congestive heart failure), NYHA class III Chronic respiratory failure with hypoxia and hypercapnia COPD (chronic obstructive pulmonary disease) ESRD on dialysis First degree heart block Fracture of fifth metatarsal bone of left foot Fracture of fourth metatarsal bone of left foot Fracture, thoracic vertebra T7-T8 History of renal cell carcinoma Hypertension Lung nodule Morbid obesity with BMI of 40.0-44.9, adult Neuropathy Obesity hypoventilation syndrome Obstructive sleep apnea non compliant with home bipap/cpap Pneumonia due to 2019-nCoV (~07/2020) PVD (peripheral vascular disease) Renal cell carcinoma History bilateral renal cell carcinoma 2007 then recurrence on the contralateral side 2011. No recurrence for long-term follow-up with some suspicion on CT scan April 2020. Restrictive lung disease Type 2 diabetes mellitus with diabetic polyneuropathy Urinary retention Surgical History (Updated 09/12/21 @ 14:20 by Carolina Sawant MD) H/O partial nephrectomy bilateral H/O wisdom tooth extraction History of cataract surgery Hx of lymph node excision Family History (Updated 09/12/21 @ 14:29 by Carolina Sawant MD) Father , at age 65 Diabetes Cancer Metastatic prostate cancer to liver Mother , at age 72 Diabetes Grandfather Diabetes Cancer Other Hyperlipidemia Social History (Updated 09/12/21 @ 14:30 by Carolina Sawant MD) Smoking and tobacco status: never smoked Second hand smoke exposure: Yes Alcohol intake: current Alcohol intake frequency: holidays/special occasions only Lives independently: Yes Household members: spouse Housing: House Marital status: service: No Current occupational status: retired Pets and animals: Yes Current gender identity: Male Vitals/I&O/Wt Last Vital Signs Temp 98.1 F 09/12/21 09:40 Pulse 62 09/12/21 13:36 Resp 16 09/12/21 13:36 BP 153/107 09/12/21 13:36 Pulse Ox 96 09/12/21 13:36 Weight last 48 hrs Weight 172.365 kg Physical Exam Narrative: Constitutional: Lethargic, will arouse with stimulation and answer a couple of questions before dozing again, morbidly obese HEENT: Normocephalic, pupils are equally reactive bilaterally, moist mucous membranes Neck: Large but supple Respiratory: Breath sounds are equal bilaterally, no wheezes noted, wearing BiPAP Cardiovascular: Regular rate and rhythm, distant heart sounds Abdomen: Soft, obese, erythematous striae noted, positive bowel sounds, nontender Extremities: Pitting edema bilaterally left lower extremity is in an Unna boot and dressing from wound care which I did not remove Skin: Patient with an open wound with serous drainage on the right lower extremity mid montero, ulceration to the bottom of the right foot metatarsal, nonstageable Neuro: Moves all extremities Data : 09/12/21 10:18 09/12/21 10:18 Other Labs: Radiology Impressions Chest X-Ray 09/12/21 09:50 IMPRESSION: 1. Stable cardiomegaly. 2. Mild perihilar pulmonary vascular congestion. 3. No pleural fluid or focal pneumonia. Laboratory Results WBC 6.6 10^3/uL (4.0-10.0) 09/12/21 10:18 RBC 3.42 10^6/uL (4.1-5.3) L 09/12/21 10:18 Hgb 10.2 g/dL (11.7-16.6) L 09/12/21 10:18 Hct 34.5 % (42.0-52.0) L 09/12/21 10:18 MCV 100.9 fl (80-94) H 09/12/21 10:18 MCH 29.8 pg (28.0-34.0) 09/12/21 10:18 MCHC 29.6 g/dL (30.0-36.0) L 09/12/21 10:18 RDW 16.4 % (12.1-15.1) H 09/12/21 10:18 Plt Count 125 10^3/cmm (130-400) L 09/12/21 10:18 MPV 10.4 fL (7.4-10.4) 09/12/21 10:18 Neut % (Auto) 67.3 % 09/12/21 10:18 Lymph % (Auto) 9.4 % 09/12/21 10:18 [place] % (Auto) 10.8 % 09/12/21 10:18 Eos % (Auto) 10.8 % 09/12/21 10:18 Baso % (Auto) 1.1 % 09/12/21 10:18 Neut # (Auto) 4.44 10^3/uL (1.8-7.7) 09/12/21 10:18 Lymph # (Auto) 0.6 10^3/uL (0.8-4.8) L 09/12/21 10:18 [place] # (Auto) 0.7 10^3/uL (0.2-0.9) 09/12/21 10:18 Eos # (Auto) 0.7 10^3/uL (0.0-0.8) 09/12/21 10:18 Baso # (Auto) 0.1 10^3/uL (0.0-0.1) 09/12/21 10:18 Nucleated RBC % (auto) 0.3 % 09/12/21 10:18 Nucleated RBCs # 0.0 /100WBC 09/12/21 10:18 Specimen Type Arterial 09/12/21 10:20 Sample Site Radial, right 09/12/21 10:20 ABG pH 7.27 (7.35-7.45) L 09/12/21 10:20 ABG pCO2 57.5 mmHg (35-45) H 09/12/21 10:20 ABG pO2 95.8 mmHg (80.0-100.0) 09/12/21 10:20 ABG HCO3 26.5 mmol/L (22-26) H 09/12/21 10:20 ABG O2 Saturation 97.0 09/12/21 10:20 ABG Base Excess -1.0 mmol/L (-2.0-2.0) 09/12/21 10:20 Jesus Test Pos 09/12/21 10:20 A-a O2 Gradient 6.4 mmHg (5-10) 09/12/21 10:20 Hematocrit 31.7 % (42-52) L 09/12/21 10:20 Hgb O2 Saturation 94.4 % (95-100) L 09/12/21 10:20 Carboxyhemoglobin 1.7 %THgb (0.4-20.1) 09/12/21 10:20 Methemoglobin 1.0 % (0.4-1.5) 09/12/21 10:20 Total Hemoglobin 10.3 g/dL (14-18) L 09/12/21 10:20 Sodium 139.0 mmol/L (131-143) 09/12/21 10:20 Potassium 4.6 mmol/L (3.5-5.0) 09/12/21 10:20 Glucose 155.0 mg/dL (70-115) H 09/12/21 10:20 Ionized Calcium 1.2 mmol/L (1.1-1.4) 09/12/21 10:20 O2 Delivery Device Bipap 09/12/21 10:20 FiO2 30.0 % 09/12/21 10:20 Orbitread Operator ID Ed 09/12/21 10:20 Sodium 134 mmol/L (136-145) L 09/12/21 10:18 Potassium 4.7 mmol/L (3.5-5.1) 09/12/21 10:18 Chloride 97 mmol/L (98-107) L 09/12/21 10:18 Carbon Dioxide 24 mmol/L (22-29) 09/12/21 10:18 Anion Gap 17.7 (5-19) 09/12/21 10:18 BUN 41 mg/dL (6-20) H 09/12/21 10:18 Creatinine 6.2 mg/dL (0.7-1.2) H* 09/12/21 10:18 GFR Calculation 9.6 mL/min (90-130) L 09/12/21 10:18 Glucose 157 mg/dL (65-115) H 09/12/21 10:18 Calculated Osmolality 291 mOsm/kg (285-295) 09/12/21 10:18 Calcium 8.2 mg/dL (8.5-10.5) L 09/12/21 10:18 Total Bilirubin 0.4 mg/dL (0.15-1.2) 09/12/21 10:18 AST 14 U/L (0-40) 09/12/21 10:18 ALT 14 U/L (0-41) 09/12/21 10:18 Alkaline Phosphatase 123 IU/L (40-130) 09/12/21 10:18 Creatine Kinase 75 U/L (39-308) 09/12/21 10:18 Troponin T Baseline 444 ng/L (0-15) H* 09/12/21 10:18 Troponin T 120 Minute 448.5 ng/L (0-15) H 09/12/21 12:17 Delta Troponin T 4.5 ABS# (0-10) 09/12/21 12:17 Total Protein 6.6 g/dL (6.6-8.7) 09/12/21 10:18 Albumin 3.9 g/dL (3.5-5.2) 09/12/21 10:18 Globulin 2.7 g/dL (1.3-4.6) 09/12/21 10:18 Hep Bs Antigen Non-reactive (Nonreactive) 09/12/21 12:17 Hep Bs Antibody 27.8 (11.5-1000) 09/12/21 12:17 Hepatitis C Antibody Non-reactive (Nonreactive) 09/12/21 12:17 A&P Assessment and plan (1) Acute and chronic respiratory failure with hypercapnia: Secondary to noncompliance with BiPAP at home combined with obesity hypoventilation and utilization of chronic benzodiazepines along with volume overload probably from noncompliance with salt and fluid restrictions in the setting of chronic kidney disease stage IV. In addition to hypercapnia also with hypoxemia for the same reasons. Has responded to initiation of oxygen therapy with BiPAP. Starting to have improvement. Continue BiPAP therapy Repeat ABG Supportive care otherwise Without compliance with long-term management recommendations will have repeat admissions for similar presentation Status: Acute (2) ESRD (end stage renal disease) on dialysis: Dialysis Mondays, Wednesdays, Fridays Nephrology consultation for dialysis today Status: Chronic (3) Diabetic foot ulcers: Involving both feet, follows at wound care clinic for hyperbaric oxygen Wound care Status: Acute (4) Osteomyelitis: Involving the left 5th metatarsal and cuboid bones Continue IV cefepime post hemodialysis Status: Chronic (5) Type 2 diabetes mellitus with diabetic polyneuropathy: Chronically on Lantus and sliding scale insulin Continue insulin at slightly lower dose for the long-acting monitoring response Status: Chronic Qualifiers: 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 insulin use: with dedicated intermodal truck driver use Qualified Code(s): E11.42 - Type 2 diabetes mellitus with diabetic polyneuropathy; Z79.4 - exterminator (current) use of insulin (6) Hypertension: Chronically on multiple antihypertensives, including carvedilol, Bumex, clonidine, isosorbide mononitrate extended release, losartan Medications continued Status: Chronic Qualifiers: Hypertension type: renovascular hypertension Qualified Code(s): I15.0 - Renovascular hypertension (7) Obstructive sleep apnea: Noncompliant with BiPAP/CPAP secondary to it being uncomfortable Discussed with patient that without utilizing BiPAP or CPAP at home he will continue to have recurrent admissions with similar presentation up to and including the possibility of from hypercapnic and hypoxic respiratory failure. Status: Chronic (8) Obesity hypoventilation syndrome: Status: Chronic (9) Chronic venous insufficiency: Status: Chronic (10) BMI 50.0-59.9, adult: Status: Chronic Plan Observation admission Subcu heparin for DVT prophylaxis PPI for GI prophylaxis Supportive care otherwise Anticipate discharge home but will ultimately depend on clinical course Full code as per previous records Attestations Medical Necessity Statement*: Currently anticipate a stay less than two midnights in a patient with repeated admissions with similar presentation as described above. Getting BiPAP therapy and hemodialysis and anticipate he will be back to his personal baseline after that. Coding Level of Care Code Acute Director Of Grants for g Fwd Diagnoses Acute and chronic respiratory failure with hypercapnia J96.22 ESRD (end stage renal disease) on dialysis N18.6; Z99.2 Diabetic foot ulcers E11.621; L97.509 Chronic venous insufficiency I87.2 Type 2 diabetes mellitus with diabetic polyneuropathy E11.42; Z79.4 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 insulin use: with dedicated intermodal truck driver use Hypertension I15.0 Hypertension type: renovascular hypertension Obstructive sleep apnea G47.33 Obesity hypoventilation syndrome E66.2 Osteomyelitis M86.9 BMI 50.0-59.9, adult Z68.43
--- NOTE | 2021-09-12 14:19 | PC.NURSE ---
PATIENT REPORT GIVEN TO GILMER DRISCOLL, DIALYSIS NURSE. PATIENT ENTERING DIALYSIS TREATMENT NOW.
--- NOTE | 2021-09-12 15:49 | ECG_ITS ---
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 Measurements Intervals Points Rate: 59 P: 89 RI: 177 QRS: 118 QRSD: 100 T: -3 QT: 407 QTc: 404 Interpretive Statements SINUS BRADYCARDIA POSSIBLE RIGHT VENTRICULAR HYPERTROPHY [SOME/ALL OF: PROMINENT R IN V1, LATE TRANSITION, RAD, JEROME, SSS] ANTEROSEPTAL MYOCARDIAL INFARCTION , PROBABLY OLD [40+ ms Q WAVE IN V1-V4] Compared to ECG 09/12/2021 13:12:43 First degree AV block no longer present Myocardial infarct finding still present Electronically Signed On 09-12-2021 18:08:00 AMERICAN HISTORY TEACHER by Erik Arguelles M.D. [id number]
[2021-09-12 17:53] LABS: Troponin 5 6HR 422.3 ng/L (0-15); Troponin 5 6HR Delta -21.7 ng/L (0-12)
--- NOTE | 2021-09-12 18:43 | PC.NURSE ---
DIALYSIS REMOVED 3500 ML PER GILMER DRISCOLL.
--- NOTE | 2021-09-12 19:15 | PC.HD ---
Pt dialyzed in ED 11. Unable to weigh pt due to pt being on ED stretcher.
[2021-09-12] MEDS: atorvastatin 40 mg Tablet 80 MG PO (21:38)
[2021-09-12] MEDS: carvedilol 25 mg Tablet PO (21:38)
[2021-09-12] MEDS: mupirocin oint 22 gm 1 APPLIC TOPICAL (21:38)
[2021-09-12] MEDS: heparin 5,000 unit/mL INJ 1 mL 5000 UNIT SUBCUT (21:38)
[2021-09-12] MEDS: insulin lispro 100 unit/1 mL SUBCUT (21:39)
[2021-09-12] MEDS: ropinirole 0.25 mg Tablet PO (21:39)
[2021-09-13] VITALS (7 sets, daily range): BP systolic 124–153; BP diastolic 71–84; PULSE 59–73; RESP 12–20; TEMP 36.3–36.9; O2SAT 90–97
[2021-09-13 05:21] LABS: Basophils # 0.1 10^3/uL (0.0-0.1); Basophils % 1.2 %; Eosinophils # 0.9 10^3/uL (0.0-0.8); Eosinophils % 14.6 %; Hematocrit 38.6 % (42.0-52.0); Hemoglobin 11.2 g/dL (11.7-16.6); Lymphocytes # 0.6 10^3/uL (0.8-4.8); Lymphocytes % 10.1 %; Mean Corpuscular Volume 103.5 fl (80-94); Monocytes # 0.6 10^3/uL (0.2-0.9); Monocytes % 9.9 %; Neutrophils # 3.73 10^3/uL (1.8-7.7); Neutrophils % 63.9 %; Nucleated Red Blood Cells % 0 %; Platelet Count 115 10^3/cmm (130-400); Red Blood Count 3.73 10^6/uL (4.1-5.3); Red Cell Distribution Width 16.7 % (12.1-15.1); White Blood Count 5.8 10^3/uL (4.0-10.0)
[2021-09-13] MEDS: heparin 5,000 unit/mL INJ 1 mL 5000 UNIT SUBCUT ×2 (05:25→14:07)
[2021-09-13] MEDS: aspirin 81 mg EC Tablet PO (05:25)
[2021-09-13 05:42] LABS: Alanine Aminotransferase 16 U/L (0-41); Albumin Level 3.7 g/dL (3.5-5.2); Alkaline Phosphatase 118 IU/L (40-130); Blood Urea Nitrogen 29 mg/dL (6-20); Calcium 8.9 mg/dL (8.5-10.5); Carbon Dioxide 21 mmol/L (22-29); Chloride 99 mmol/L (98-107); Globulin 3.6 g/dL (1.3-4.6); Glomerular Filtration Rate 13.9 mL/min (90-130); Glucose 105 mg/dL (65-115); Magnesium 2.3 mg/dL (1.7-2.3); Osmolality Calculated 280 mOsm/kg (285-295); Phosphorus 4.9 mg/dL (2.5-4.5); Sodium 132 mmol/L (136-145); Total Bilirubin 0.5 mg/dL (0.15-1.2); Total Protein 7.3 g/dL (6.6-8.7)
[2021-09-13 05:51] LABS: Anion Gap 16.9 (5-19); Aspartate Amino Transferase 22 U/L (0-40); Potassium 4.9 mmol/L (3.5-5.1)
[2021-09-13 05:59] LABS: 25 Hydroxy Vitamin D 48 ng/mL (30-100); Calcium 8.9 mg/dL (8.5-10.5)
[2021-09-13 06:05] LABS: Parathyroid Hormone 154.7 pg/mL (15-65)
--- NOTE | 2021-09-13 08:30 | PM.PN ---
Subjective Subjective: feels well. some edema. no n/v/f/c/acosta/d/sob. MS improved Medications: Reviewed: Yes Medication Review Details: Current Medications Acetaminophen (Acetaminophen 500 Mg Tablet) 500 mg PO Q6H PRN PRN Reason: Pain Amlodipine Besylate (Amlodipine 10 Mg Tablet) 10 mg PO DAILY [facility] Aspirin (Aspirin 81 Mg Ec Tablet) 81 mg PO QAM [facility] Last Admin: 09/13/21 05:25 Dose: 81 mg Documented by: Atorvastatin Calcium (Atorvastatin 40 Mg Tablet) 80 mg PO BEDTIME [facility] Last Admin: 09/12/21 21:38 Dose: 80 mg Documented by: Bumetanide (Bumetanide 1 Mg Tablet) 2 mg PO DAILY [facility] Carvedilol (Carvedilol 25 Mg Tablet) 25 mg PO BID [facility] Last Admin: 09/12/21 21:38 Dose: 25 mg Documented by: Clonazepam (Clonazepam 0.5 Mg Tablet) 0.25 mg PO BID PRN PRN Reason: ANXIETY Clonidine HCl (Clonidine 0.1 Mg Tablet) 0.1 mg PO Q4H PRN PRN Reason: SBP > 180 or DBP > 110 Dextrose (Dextrose 50% Syringe 50 Ml) 25 ml IVP ONCE PRN; Protocol PRN Reason: hypoglycemia protocol Dextrose (Dextrose 50% Syringe 50 Ml) 50 ml IVP PRN PRN; Protocol PRN Reason: hypoglycemia protocol Gabapentin (Gabapentin 300 Mg Capsule) 300 mg PO DAILY PRN PRN Reason: muscle pain Glucagon (Glucagon 1 Mg/Ml Inj 1 Ml) 1 mg IM ONCE PRN; Protocol PRN Reason: Adult Acute Hypoglycemia Prot. Heparin Sodium (Porcine) (Heparin 5,000 Unit/Ml Inj 1 Ml) 5,000 unit SUBCUT Q8H [facility] Last Admin: 09/13/21 05:25 Dose: 5,000 unit Documented by: Hydroxyzine Pamoate (Hydroxyzine 25 Mg Capsule) 25 mg PO DAILY PRN PRN Reason: Itching Albumin Human (Albumin) 12.5 gm in 50 mls @ 60 mls/hr IV PRN PRN PRN Reason: Hypotension and/or symptomatic Cefepime HCl 500 mg/ Sodium (Chloride) 50 mls @ 100 mls/hr IV MoWeFr [facility] Last Infusion: 09/12/21 22:10 Dose: Infused Documented by: Dextrose (D5w) 500 mls @ 100 mls/hr IV ONCE PRN; Protocol PRN Reason: Adult Acute Hypoglycemia Prot Insulin Glargine (Insulin Glargine 100 Units/1 Ml) 40 unit SUBCUT DAILY [place] Insulin Human Lispro (Insulin Lispro 100 Unit/1 Ml) 0 unit SUBCUT BEDTIME [facility]; Protocol Last Admin: 09/12/21 21:39 Dose: 2 unit Documented by: Insulin Human Lispro (Insulin Lispro 100 Unit/1 Ml) 0 unit SUBCUT TIDWM [facility]; Protocol Last Admin: 09/12/21 21:25 Dose: Not Given Documented by: Isosorbide Mononitrate (Isosorbide Mononitrate Er 60 Mg Tablet) 120 mg PO DAILY [place] Losartan Potassium (Losartan 50 Mg Tablet) 50 mg PO DAILY [facility] Multivitamins (L-Fgoaajr-Dvallwt C Tablet) 1 each PO DAILY [facility] Mupirocin (Mupirocin Oint 22 Gm) 1 applic TOPICAL DAILY [facility] Last Admin: 09/12/21 21:38 Dose: 1 applic Documented by: Naloxone HCl (Naloxone 0.4 Mg/Ml Sdv) 0.1 mg IVP Q2M PRN PRN Reason: OPIATERV Ondansetron HCl (Ondansetron 4 Mg Tablet) 4 mg PO Q8H PRN PRN Reason: NAUSEA Pantoprazole Sodium (Pantoprazole Dr 40 Mg Tablet) 40 mg PO DAILY [facility] Ropinirole HCl (Ropinirole 0.25 Mg Tablet) 0.25 mg PO BEDTIME [facility] Last Admin: 09/12/21 21:39 Dose: 0.25 mg Documented by: Trazodone HCl (Trazodone 50 Mg Tablet) 25 mg PO BEDTIME PRN PRN Reason: Sleep Venlafaxine HCl (Venlafaxine Er (24hr) 150 Mg Capsule) 150 mg PO DAILY [facility] Vitals/I&O/Wt Last Vital Signs Temp 98.5 F 09/13/21 07:36 Pulse 61 09/13/21 07:36 Resp 20 H 09/13/21 07:36 BP 141/84 09/13/21 07:36 Pulse Ox 90 09/13/21 07:36 09/12/21 09/13/21 09/13/21 22:59 06:59 14:59 Intake Total 470 / 470 Output Total 3826 / 3826 Balance -3356 / -3356 Weight last 48 hrs Weight 156.852 kg Weight 156.659 kg Weight 0 g Weight 172.365 kg Physical Exam Narrative: obese, sitting up comfortable, NARD heent- nc/at, eomi, anicteric neck obese lungs good air movement b/l heart- reg, no rub abd soft, nt, nd, + bs ext b/l edema decreased neuro- a,a, o x 3, from x 4 Data : 09/13/21 04:48 09/13/21 04:48 A&P Assessment and plan (1) ESRD (end stage renal disease) on dialysis: 51 yr old man 1. COPD/SYED- bipap -hypercapneic resp acidosis- bipap 2. ESRD- s/p HD yesterday -repeat HD in am- here or as outpt now- 4 hrs, 2k, remove 3.5 l as amairani pth 155- good for eSRD 3. wound care 4. mild hyponatremia- monitor w/ HD 5. DM care per medicine 6. hgb good for ESRD 7. thrombocytopenia- stable from last week- Q if HSM or from rt heart failure seen and examine dw/ rN- telehealth visit time spent 25 minutes discussed w/ RN and HD RN Status: Chronic Plan see above Attestations Medical Necessity Statement*: per medicine Time Spent in Patient Care: 16 - 35 minutes (>than 50% of time spent in counselling and/or direct pt care on unit). Coding Level of Care Code Acute Web Search Evaluator for Patricia Reid Diagnoses ESRD (end stage renal disease) on dialysis N18.6; Z99.2
[2021-09-13] MEDS: b-complex-vitamin c Tablet 1 EACH PO (10:42)
[2021-09-13] MEDS: isosorbide mononitrate ER 60 mg Tablet 120 MG PO (10:42)
[2021-09-13] MEDS: insulin glargine 100 units/1 mL 40 UNIT SUBCUT (10:42)
[2021-09-13] MEDS: bumetanide 1 mg Tablet 2 MG PO (10:42)
[2021-09-13] MEDS: pantoprazole DR 40 mg Tablet PO (10:43)
[2021-09-13] MEDS: losartan 50 mg Tablet PO (10:43)
[2021-09-13] MEDS: amlodipine 5 mg Tablet PO (10:43)
[2021-09-13] MEDS: carvedilol 25 mg Tablet PO (10:43)
[2021-09-13] MEDS: venlafaxine ER (24HR) 150 mg Capsule PO (10:43)
--- NOTE | 2021-09-13 11:41 | P.DS_ITS ---
Discharge Providers Date of Admission: 09/12/21 12:11 Date of Discharge: September 13, 2021 Attending Provider at Admission: Carolina Sawant MD Attending Provider at Discharge: Paul Freeman MD Primary Care Provider: Sulma Wetzel MD Diagnoses at Discharge Discharge Diagnosis (1) ESRD (end stage renal disease) on dialysis: Status: Chronic Reason for Visit Reason for Visit: ABG Hospital Course Hospital Course 51 year old male who presented to the emergency room from wound care clinic due to alteration of mental status.? Patient was scheduled for hyperbaric oxygen therapy today.? He had taken some Valium or Klonopin prior to coming to clinic.? There he was extremely sleepy and difficult to arouse.? Oxygen saturations were in the 70s on room air there.? He was sent via EMS to the emergency room.? ABG showed 7.2 / on room air.? He was admitted for the management of Acute and chronic respiratory failure with hypercapnia: Secondary to noncompliance with BiPAP at home combined with obesity hypoventilation and utilization of chronic benzodiazepines along with volume overload. Patient was placed on BiPAP, to which she responded well. At the time of discharge he was alert awake oriented, was communicating well. He was continued on routine hemodialysis. 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 Patient was also continued to be managed for his other comorbid conditions. Patient responded well to above medical management and was discharged in stable condition to home. Physical Exam Const: COMMON NORMALS: patient oriented x3 HENMT: COMMON NORMALS: normocephalic, atraumatic, hearing grossly normal bilaterally and external ears normal HEAD & SCALP: normocephalic and atraumatic EXTERNAL EAR: Yes external ears normal Eye: COMMON NORMALS: no scleral icterus GENERAL EYE: appearance normal, both eyes and all related structures Chest: COMMONS NORMALS: normal inspection of the chest and normal palpation of entire chest wall CHEST: Yes Symmetrical chest wall rise Resp: COMMON NORMALS: normal respiratory effort, No retractions, No use of accessory muscles and clear to auscultation bilaterally EFFORT & INSPECTION: Yes symmetric chest movement AUSCULTATION: clear to auscultation bilaterally Cardio: COMMON NORMALS: regular rate, regular rhythm, S1 normal heart sound present, S2 normal heart sound present, No gallops present (Cardio), No murmurs present (Cardio), No rub (Cardio) and Peripheral pulses 2+ throughout RATE: regular rate RHYTHM: regular rhythm HEART SOUNDS: S1 normal heart sound present and S2 normal heart sound present PERIPHERAL PULSES: Peripheral pulses 2+ throughout GI: COMMON NORMALS: Normal to inspection, nondistended, normoactive bowel sounds present, Soft to palpation, non-tender, No hepatosplenomegaly present and no masses AUSCULTATION: Yes normoactive bowel sounds PALPATION: Yes Soft to palpation and Yes No hepatosplenomegaly present RECTAL EXAM: Yes deferred Extremity: COMMON NORMALS: no clubbing, cyanosis or edema and no pedal edema Neuro: COMMON NORMALS: patient oriented x3 Discharge Data Studies Completed and Pending Completed Studies During Hospitalization Category Date Time Status XR chest 1V portable [id number] Stat Exams 09/12/21 09:50 Completed Pending at discharge Category Date Time Status Complete Blood Count w/Auto AM LABS Lab 09/14/21 04:00 Ordered Complete Blood Count w/Auto AM LABS Lab 09/15/21 04:00 Ordered Comprehensive Metabolic Panel AM LABS Lab 09/14/21 04:00 Ordered Comprehensive Metabolic Panel AM LABS Lab 09/15/21 04:00 Ordered Drug Tox Monit. Alcohol Metabo Routine Lab 09/12/21 11:18 Ordered Magnesium AM LABS Lab 09/14/21 04:00 Ordered Magnesium AM LABS Lab 09/15/21 04:00 Ordered Phosphorus AM LABS Lab 09/14/21 04:00 Ordered Phosphorus AM LABS Lab 09/15/21 04:00 Ordered Radiology Impressions Chest X-Ray 09/12/21 09:50 IMPRESSION: 1. Stable cardiomegaly. 2. Mild perihilar pulmonary vascular congestion. 3. No pleural fluid or focal pneumonia. Laboratory Results WBC 5.8 10^3/uL (4.0-10.0) 09/13/21 04:48 RBC 3.73 10^6/uL (4.1-5.3) L 09/13/21 04:48 Hgb 11.2 g/dL (11.7-16.6) L 09/13/21 04:48 Hct 38.6 % (42.0-52.0) L 09/13/21 04:48 MCV 103.5 fl (80-94) H 09/13/21 04:48 MCH 30.0 pg (28.0-34.0) 09/13/21 04:48 MCHC 29.0 g/dL (30.0-36.0) L 09/13/21 04:48 RDW 16.7 % (12.1-15.1) H 09/13/21 04:48 Plt Count 115 10^3/cmm (130-400) L 09/13/21 04:48 MPV 11.0 fL (7.4-10.4) H 09/13/21 04:48 Neut % (Auto) 63.9 % 09/13/21 04:48 Lymph % (Auto) 10.1 % 09/13/21 04:48 [place] % (Auto) 9.9 % 09/13/21 04:48 Eos % (Auto) 14.6 % 09/13/21 04:48 Baso % (Auto) 1.2 % 09/13/21 04:48 Neut # (Auto) 3.73 10^3/uL (1.8-7.7) 09/13/21 04:48 Lymph # (Auto) 0.6 10^3/uL (0.8-4.8) L 09/13/21 04:48 [place] # (Auto) 0.6 10^3/uL (0.2-0.9) 09/13/21 04:48 Eos # (Auto) 0.9 10^3/uL (0.0-0.8) H 09/13/21 04:48 Baso # (Auto) 0.1 10^3/uL (0.0-0.1) 09/13/21 04:48 Nucleated RBC % (auto) 0 % 09/13/21 04:48 Nucleated RBCs # 0.0 /100WBC 09/13/21 04:48 Specimen Type Arterial 09/12/21 10:20 Sample Site Radial, right 09/12/21 10:20 ABG pH 7.27 (7.35-7.45) L 09/12/21 10:20 ABG pCO2 57.5 mmHg (35-45) H 09/12/21 10:20 ABG pO2 95.8 mmHg (80.0-100.0) 09/12/21 10:20 ABG HCO3 26.5 mmol/L (22-26) H 09/12/21 10:20 ABG O2 Saturation 97.0 09/12/21 10:20 ABG Base Excess -1.0 mmol/L (-2.0-2.0) 09/12/21 10:20 Jesus Test Pos 09/12/21 10:20 A-a O2 Gradient 6.4 mmHg (5-10) 09/12/21 10:20 Hematocrit 31.7 % (42-52) L 09/12/21 10:20 Hgb O2 Saturation 94.4 % (95-100) L 09/12/21 10:20 Carboxyhemoglobin 1.7 %THgb (0.4-20.1) 09/12/21 10:20 Methemoglobin 1.0 % (0.4-1.5) 09/12/21 10:20 Total Hemoglobin 10.3 g/dL (14-18) L 09/12/21 10:20 Sodium 139.0 mmol/L (131-143) 09/12/21 10:20 Potassium 4.6 mmol/L (3.5-5.0) 09/12/21 10:20 Glucose 155.0 mg/dL (70-115) H 09/12/21 10:20 Ionized Calcium 1.2 mmol/L (1.1-1.4) 09/12/21 10:20 O2 Delivery Device Bipap 09/12/21 10:20 FiO2 30.0 % 09/12/21 10:20 Butane Compressor Operator ID Ed 09/12/21 10:20 Sodium 132 mmol/L (136-145) L 09/13/21 04:48 Potassium 4.9 mmol/L (3.5-5.1) 09/13/21 04:48 Chloride 99 mmol/L (98-107) 09/13/21 04:48 Carbon Dioxide 21 mmol/L (22-29) L 09/13/21 04:48 Anion Gap 16.9 (5-19) 09/13/21 04:48 BUN 29 mg/dL (6-20) H 09/13/21 04:48 Creatinine 4.5 mg/dL (0.7-1.2) H 09/13/21 04:48 GFR Calculation 13.9 mL/min (90-130) L 09/13/21 04:48 Glucose 105 mg/dL (65-115) 09/13/21 04:48 Calculated Osmolality 280 mOsm/kg (285-295) L 09/13/21 04:48 Calcium 8.9 mg/dL (8.5-10.5) 09/13/21 04:48 Phosphorus 4.9 mg/dL (2.5-4.5) H 09/13/21 04:48 Magnesium 2.3 mg/dL (1.7-2.3) 09/13/21 04:48 Total Bilirubin 0.5 mg/dL (0.15-1.2) 09/13/21 04:48 AST 22 U/L (0-40) 09/13/21 04:48 ALT 16 U/L (0-41) 09/13/21 04:48 Alkaline Phosphatase 118 IU/L (40-130) 09/13/21 04:48 Creatine Kinase 75 U/L (39-308) 09/12/21 10:18 Troponin T Baseline 444 ng/L (0-15) H* 09/12/21 10:18 Troponin T 120 Minute 448.5 ng/L (0-15) H 09/12/21 12:17 Delta Troponin T 4.5 ABS# (0-10) 09/12/21 12:17 Troponin T Hi Sens 6Hr 422.3 ng/L (0-15) H 09/12/21 16:30 Troponin T Hi Sens 6Hr Delta -21.7 ng/L (0-12) L 09/12/21 16:30 Total Protein 7.3 g/dL (6.6-8.7) 09/13/21 04:48 Albumin 3.7 g/dL (3.5-5.2) 09/13/21 04:48 Globulin 3.6 g/dL (1.3-4.6) 09/13/21 04:48 25-OH Vitamin D Total 48 ng/mL (30-100) 09/13/21 04:48 PTH Intact 154.7 pg/mL (15-65) H 09/13/21 04:48 Calcium (PTH Intact) 8.9 mg/dL (8.5-10.5) 09/13/21 04:48 Hep Bs Antigen Non-reactive (Nonreactive) 09/12/21 12:17 Hep Bs Antibody 27.8 (11.5-1000) 09/12/21 12:17 Hepatitis C Antibody Non-reactive (Nonreactive) 09/12/21 12:17 Vitals Last Vital Signs Temp 98.5 F 09/13/21 07:36 Pulse 62 09/13/21 08:46 Resp 16 09/13/21 08:46 BP 141/84 09/13/21 10:43 Pulse Ox 97 09/13/21 08:46 Discharge Plan Discharge Patient Disposition: Home Condition: Stable Prescriptions: Continued ofloxacin 0.3 % drops 2 drp otic (ear) ONCE PRN (Reason: Tubes in tympanic membranes) Qty: 10 12RF Rx Instructions: Apply 2 drops to each ear after water exposure (DME) Wheel Chair See Rx Instructions .Route .MEDSUPPLY Qty: 1 0RF Rx Instructions: As directed HOME aspirin 81 mg Tablet,Delayed Release (Dr/Ec) 81 mg PO QAM 0RF isosorbide mononitrate 120 mg Tablet Extended Release 24 Hr 120 mg PO DAILY 0RF sodium bicarbonate 650 mg tablet 650 mg PO TID 0RF sevelamer carbonate 800 mg tablet See Rx Instructions .ROUTE .COMPLEX 0RF Rx Instructions: 2 tabs po tid with meals and 1 tab po bid with snacks venlafaxine 150 mg capsule,extended release 24hr 150 mg PO DAILY 0RF RenaPlex-D 800 mcg-12.5 mg -2,000 unit tablet 1 tab PO DAILY 0RF carvedilol 25 mg tablet 25 mg PO BID 0RF losartan 50 mg tablet 50 mg PO DAILY 0RF atorvastatin 80 mg tablet 80 mg PO BEDTIME 0RF Lantus U-100 Insulin 100 unit/mL solution 60 unit SUBCUT DAILY 0RF bumetanide 2 mg tablet See Rx Instructions .ROUTE .COMPLEX 0RF Rx Instructions: 2 tabs po bid on non hd days ( and ) trazodone 50 mg tablet 25 mg PO BEDTIME PRN (Reason: Sleep) 0RF clonazepam 0.5 mg tablet 0.5 mg PO BID 0RF acetaminophen 500 mg Tablet 500 mg PO Q6H PRN (Reason: Pain) 0RF lidocaine-prilocaine 2.5-2.5 % cream 1 applic topical . DIRECTED 0RF ropinirole 0.25 mg tablet 0.25 mg PO BEDTIME 0RF amlodipine 10 mg tablet 10 mg PO DAILY 0RF insulin aspart U-100 [Novolog U-100 Insulin aspart] 100 unit/mL solution See Rx Instructions .ROUTE .COMPLEX 0RF Rx Instructions: sliding scale tid with meals and hs triamcinolone acetonide 0.1 % ointment 1 applic TOPICAL BID PRN (Reason: unknown) 0RF gabapentin 300 mg capsule 300 mg PO DAILY PRN (Reason: Pain) 0RF mupirocin 2 % ointment See Rx Instructions .ROUTE .COMPLEX 0RF Rx Instructions: use daily on right montero with dressing change hydroxyzine pamoate 25 mg capsule 25 mg PO DAILY PRN (Reason: Itching) 0RF Rexulti 0.25 mg tablet 0.25 mg PO DAILY 0RF Lokelma 5 gram powder in packet See Rx Instructions .ROUTE .COMPLEX 0RF Rx Instructions: 1 packet (on ,,sun and sunday (non dialysis days) cefepime 1 gram recon soln 500 mg IM .after HD 42 Days Qty: 10 4RF betamethasone dipropionate 0.05 % cream 1 applic topical Q12H Qty: 45 0RF calamine-zinc oxide Lotion 1 applic topical 5XD PRN (Reason: skin irritation) Qty: 177 0RF clonidine HCl 0.2 mg Tablet 0.2 mg PO TID PRN (Reason: Blood Pressure) 0RF Discharge Orders: Discharge Order (Routine); Ordered 09/13/21 Ordered By: Paul Freeman Referrals: [facility] [Outside] Sulma Wetzel MD [Primary Care Provider] - 09/20/21 10:30 am Discharge Diet: Diabetic Discharge Activity: Resume usual activity Patient Instructions: Hypertension, Dialysis Diet (GEN), End Stage Kidney Disease (DC), Opioid Safety Discharge Attestations Time Spent in Discharge Care*: greater than 30 min Specific Discharge Activities: educating patient, educating and/or supporting family/caregiver, discussing with pcp/other providers, discussing with family preservation caseworker/social workers/dc planners, documenting/other paperwork and evaluating patient/reviewing data Status at Discharge: Cognitive status at discharge: cognitively intact , Behavioral status at discharge: cooperative , Functional status at discharge: independent ambulation , Quality Metrics Clinical Quality Measures [ No reported AMI, CVA or VTE this stay] Coding Level of Care Code Acute Chg FW DC note Exam Comprehensive Diagnoses ESRD (end stage renal disease) on dialysis N18.6; Z99.2
[2021-09-13] MEDS: mupirocin oint 22 gm 1 APPLIC TOPICAL (14:06)
[2021-09-13] MEDS: insulin lispro 100 unit/1 mL SUBCUT (14:07)
== END 2021-09-13 14:20 | disposition home or self-care (01) ==
LOC: ER 11:47 → MEDSURG 18:45
PROVIDERS: Internal Medicine Nephrology; Admitting Provider Hospitalist; Emergency Provider Family Medicine; PCP Internal Medicine; Visit Provider Internal Medicine
DX: E11.22 Type 2 diabetes mellitus with diabetic chronic kidney disease (principal); N18.6 End stage renal disease; I13.0 Hypertensive heart and chronic kidney disease with heart failure and stage 1 through stage 4 chronic kidney disease, or unspecified chronic kidney disease; I50.9 Heart failure, unspecified; Z99.2 Dependence on renal dialysis; J96.22 Acute and chronic respiratory failure with hypercapnia; Z91.19 Patient's noncompliance with other medical treatment and regimen; Z79.4 Long term (current) use of insulin; Z79.82 Long term (current) use of aspirin; E87.1 Hypo-osmolality and hyponatremia; D69.6 Thrombocytopenia, unspecified; E66.2 Morbid (severe) obesity with alveolar hypoventilation; Z68.42 Body mass index [BMI] 45.0-49.9, adult; E11.40 Type 2 diabetes mellitus with diabetic neuropathy, unspecified; G47.33 Obstructive sleep apnea (adult) (pediatric); M86.9 Osteomyelitis, unspecified; I87.2 Venous insufficiency (chronic) (peripheral); L97.509 Non-pressure chronic ulcer of other part of unspecified foot with unspecified severity; I15.0 Renovascular hypertension
CPT/HCPCS: 36415; 36416; 36600; 71045; 80051; 80053; 82306; 82310; 82330; 82550; 82805; 82962; 83735; 83970; 84100; 84484; 85025; 86706; 86803; 87340; 93005; 94660; 96365; 96366; 96367; 96372; 99291; G0378; J0692; J1644; J1815 ×2

== ENCOUNTER 2021-09-15 09:20 | Outpatient (CLI) | payer MEDICARE, MEDICAID, SELFPAY | END 2021-09-15 09:21 | disposition home or self-care (01) | LOC: WOUND 09:20 | PROVIDERS: PCP Internal Medicine; Visit Provider Emergency Medicine | DX: I96 Gangrene, not elsewhere classified (principal); E11.621 Type 2 diabetes mellitus with foot ulcer; L97.522 Non-pressure chronic ulcer of other part of left foot with fat layer exposed; J44.9 Chronic obstructive pulmonary disease, unspecified | CPT/HCPCS: 11042 ==

== ENCOUNTER 2021-09-27 20:08 | Inpatient (IN) | payer MEDICARE, MEDICAID, SELFPAY ==
[2021-09-27] VITALS (10 sets, daily range): BP systolic 97–117; BP diastolic 60–82; PULSE 59–63; RESP 16–26; TEMP 36.5; O2SAT 79–98; BMI 43.5; BMI 42.9
--- NOTE | 2021-09-27 20:16 | CTR_ITS ---
PROCEDURE INFORMATION: Exam: CTA Chest With Contrast Exam date and time: 09/27/2021 8:16 PM Age: 51 years old Clinical indication: Shortness of breath; Patient HX: Res distress; Additional info: Pe TECHNIQUE: Imaging protocol: Computed tomographic angiography of the chest with contrast. 3D rendering (Not supervised by radiologist): MIP and/or 3D reconstructed images were created by the technologist. Radiation optimization: All CT scans at this facility use at least one of these dose optimization techniques: automated exposure control; mA and/or kV adjustment per patient size (includes targeted exams where dose is matched to clinical indication); or iterative reconstruction. Contrast material: OMNI 350; Contrast volume: 95 ml; Contrast route: INTRAVENOUS (IV); COMPARISON: CT angio chest PE protcl [id number] 01/05/2021 1:07 PM RADIATION DOSE METRICS: Total DLP (mGy-cm): 899.39 FINDINGS: Limitations: Study is somewhat limited due to streak and motion artifact. The study is made with less than full inspiration. Pulmonary arteries: Allowing for the limitations on this examination, no gross evidence of pulmonary emboli is demonstrated. Aorta: There is no thoracic aortic aneurysm or dissection. Lungs: There is dependent atelectasis at both lung bases. Pleural spaces: Unremarkable. No pneumothorax. No pleural effusion. Heart: The heart is moderately enlarged. There is severe atherosclerotic calcification of the coronary arteries. Lymph nodes: There is mild paratracheal adenopathy with paratracheal lymph node measuring 20 x 29 mm not significantly changed. Intraperitoneal space: Ascites is noted in the upper abdomen. Bones/joints: Unremarkable. No acute fracture. Soft tissues: There are findings of mild anasarca. CT/CT angio chest PE protcl [id number] IMPRESSION: 1. No gross evidence of pulmonary embolism. 2. Ascites 3. Cardiomegaly 4. Anasarca
--- NOTE | 2021-09-27 20:16 | XRR_ITS ---
PROCEDURE INFORMATION: Exam: XR Chest Exam date and time: 09/27/2021 8:16 PM Age: 51 years old Clinical indication: Shortness of breath; Additional info: SOB TECHNIQUE: Imaging protocol: XR of the chest. Views: 1 view. COMPARISON: CR XR chest 1V portable [id number] 09/12/2021 9:54 AM FINDINGS: Lungs: Hypoinflated lungs. No consolidation. Pleural spaces: Unremarkable. No pleural effusion. No pneumothorax. Heart/Mediastinum: Similar cardiomegaly. Bones/joints: Visualized osseous structures are intact. XR/XR chest 1V portable [id number] IMPRESSION: Stable exam, no acute findings.
--- NOTE | 2021-09-27 20:17 | ECG_ITS ---
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 Measurements Intervals [place] Rate: 61 P: 5 MI: 208 QRS: 130 QRSD: 115 T: 49 QT: 440 QTc: 446 Interpretive Statements SINUS RHYTHM POSSIBLE RIGHT VENTRICULAR HYPERTROPHY [SOME/ALL OF: PROMINENT R IN V1, LATE TRANSITION, RAD, JEROME, SSS] Compared to ECG 09/12/2021 16:14:24 Sinus bradycardia no longer present Myocardial infarct finding no longer present Electronically Signed On 09-28-2021 5:35:00 CASH POSTER by Rosie Ivey M.D. [id number]
--- NOTE | 2021-09-27 20:17 | W.ED.SOB ---
HPI - SOB/Dyspnea General: Chief Complaint: General Medical Stated Complaint: RESP. DISTRESS Time Seen by Provider: 09/27/21 20:16 History of Present Illness: HPI Narrative: 51-year-old gentleman with history of CHF who is on dialysis presents shortness of breath and syncope. Reported lightheadedness to paramedics and then had a 1 minute syncopal episode on the cart. He was saturating in the mid 80s on CPAP and initially had blood pressure in the 40s over 20s however improved to 80s over 50s by time of arrival. He denies any chest pain. Denies any headache or focal weakness numbness or tingling. States he has been compliant with dialysis. Upon rechecking blood pressure in the ER it is 99/59. Patient also states that he has had a chronic left foot ulcer that is unchanged today. Review of Systems Narrative: - CONSTITUTIONAL: Denies weight loss, fever and chills. - HEENT: Denies changes in vision and hearing. - RESPIRATORY: As above - CV: Denies palpitations and CP. - GI: Denies abdominal pain, nausea, vomiting and diarrhea. - : Denies dysuria and urinary frequency. - MSK: Denies myalgia and joint pain. - SKIN: Denies rash and pruritus. - NEUROLOGICAL: As above - PSYCHIATRIC: Denies suicidal ideation PFS ED PFSH: Medical History (Updated 09/14/21 @ 00:01 by ) Acute and chronic respiratory failure with hypercapnia Anemia BMI 50.0-59.9, adult Cardiac arrest (~07/2020) when had covid CHF (congestive heart failure), NYHA class III Chronic respiratory failure with hypoxia and hypercapnia Chronic venous insufficiency COPD (chronic obstructive pulmonary disease) Diabetic foot ulcers Diabetic ulcer of left foot ESRD (end stage renal disease) on dialysis ESRD on dialysis First degree heart block Fracture of fifth metatarsal bone of left foot Fracture of fourth metatarsal bone of left foot Fracture, thoracic vertebra T7-T8 History of renal cell carcinoma Hypertension Lung nodule Morbid obesity with BMI of 40.0-44.9, adult Neuropathy Obesity hypoventilation syndrome Obstructive sleep apnea non compliant with home bipap/cpap Osteomyelitis Pneumonia due to 2019-nCoV (~07/2020) PVD (peripheral vascular disease) Renal cell carcinoma History bilateral renal cell carcinoma 2007 then recurrence on the contralateral side 2011. No recurrence for long-term follow-up with some suspicion on CT scan April 2020. Restrictive lung disease Type 2 diabetes mellitus with diabetic polyneuropathy Urinary retention Surgical History (Updated 09/12/21 @ 14:20 by Carolina Sawant MD) H/O partial nephrectomy bilateral H/O wisdom tooth extraction History of cataract surgery Hx of lymph node excision Family History (Updated 09/12/21 @ 14:29 by Carolina Sawant MD) Father , at age 65 Diabetes Cancer Metastatic prostate cancer to liver Mother , at age 72 Diabetes Grandfather Diabetes Cancer Other Hyperlipidemia Social History (Updated 09/12/21 @ 14:30 by Carolina Sawant MD) Smoking and tobacco status: never smoked Second hand smoke exposure: Yes Smoking risk assessment/counseling performed?: Yes Alcohol intake: current Alcohol intake frequency: holidays/special occasions only Lives independently: Yes Household members: spouse Housing: House Marital status: service: No Current occupational status: retired Pets and animals: Yes History of recent travel: No Current gender identity: Male Physical Exam Narrative: EXAM NARRATIVE: - GENERAL: Alert and oriented x 3. No acute distress. Well-nourished. - EYES: EOMI. Anicteric. - HENT: Atraumatic, no C-spine tenderness. Moist mucous membranes. No scleral icterus. No cervical lymphadenopathy. - LUNGS: Bilateral wheezing and crackles. No accessory muscle use. Equal lung sounds bilaterally. No respiratory distress. - CARDIOVASCULAR: Regular rate and rhythm. No murmur. No JVD. - ABDOMEN: Soft, non-tender and non-distended. Negative CVA tenderness bilaterally, no rebound or guarding, negative Levin sign. No palpable masses. - EXTREMITIES: Left upper extremity fistula in place without erythema or tenderness. Bilateral lower extremity edema. Non-tender. Left foot has diabetic foot ulcer. Otherwise neurovascularly intact. - SKIN: No rashes or lesions. Warm. - NEUROLOGIC: No meningismus or focal neurological deficits. CN II-XII grossly intact. - PSYCHIATRIC: Cooperative. Appropriate mood and affect. Course Vital Signs: Vital signs: Vital Signs Temperature 97.7 F 09/27/21 20:09 Pulse Rate 61 09/27/21 21:42 Respiratory Rate 18 09/27/21 20:26 Blood Pressure 99/60 09/27/21 20:09 Pulse Oximetry 92 09/27/21 21:42 MDM - SOB/Dyspnea Medical Decision Making 51-year-old male presents with shortness of breath. Also had a syncopal episode in route. Nonfocal neurologic exam. On exam has wheezing and crackles. Improved with Lasix steroids and albuterol. Concern for combined CHF and COPD exacerbation. High-sensitivity troponin elevated to 400s but this is around his baseline. EKG does not show any sign of acute ischemic change. Creatinine is elevated. Remainder of lab work unremarkable. CTA does not reveal signs of PE. Patient is currently on BiPAP. ABGs consistent with acute on chronic respiratory acidosis. Remainder of lab work and imaging reviewed. Discussed with hospitalist and they agreed patient would benefit from admission. Patient admitted in stable condition. Further evaluation management per hospitalist team. Lab Data : 09/27/21 20:16 09/27/21 20:16 Labs/Radiology: Radiology Impressions Chest X-Ray 09/27/21 20:16 IMPRESSION: Stable exam, no acute findings. Laboratory Results WBC 10.3 10^3/uL (4.0-10.0) H 09/27/21 20:16 RBC 3.56 10^6/uL (4.1-5.3) L 09/27/21 20:16 Hgb 10.4 g/dL (11.7-16.6) L 09/27/21 20:16 Hct 36.6 % (42.0-52.0) L 09/27/21 20:16 MCV 102.8 fl (80-94) H 09/27/21 20:16 MCH 29.2 pg (28.0-34.0) 09/27/21 20:16 MCHC 28.4 g/dL (30.0-36.0) L 09/27/21 20:16 RDW 16.7 % (12.1-15.1) H 09/27/21 20:16 Plt Count 215 10^3/cmm (130-400) 09/27/21 20:16 MPV 11.2 fL (7.4-10.4) H 09/27/21 20:16 Neut % (Auto) 75.5 % 09/27/21 20:16 Lymph % (Auto) 7.6 % 09/27/21 20:16 Warren % (Auto) 11.0 % 09/27/21 20:16 Eos % (Auto) 4.1 % 09/27/21 20:16 Baso % (Auto) 1.0 % 09/27/21 20:16 Neut # (Auto) 7.75 10^3/uL (1.8-7.7) H 09/27/21 20:16 Lymph # (Auto) 0.8 10^3/uL (0.8-4.8) 09/27/21 20:16 Warren # (Auto) 1.1 10^3/uL (0.2-0.9) H 09/27/21 20:16 Eos # (Auto) 0.4 10^3/uL (0.0-0.8) 09/27/21 20:16 Baso # (Auto) 0.1 10^3/uL (0.0-0.1) 09/27/21 20:16 Nucleated RBC % (auto) 0.9 % 09/27/21 20:16 Nucleated RBCs # 0.1 /100WBC 09/27/21 20:16 Specimen Type Arterial 09/27/21 21:12 Sample Site Radial, left 09/27/21 21:12 ABG pH 7.22 (7.35-7.45) L 09/27/21 21:12 ABG pCO2 72.7 mmHg (35-45) H* 09/27/21 21:12 ABG pO2 40.2 mmHg (80.0-100.0) L 09/27/21 21:12 ABG HCO3 30.0 mmol/L (22-26) H 09/27/21 21:12 ABG O2 Saturation 66.2 09/27/21 21:12 ABG Base Excess 0.9 mmol/L (-2.0-2.0) 09/27/21 21:12 Jesus Test Pos 09/27/21 21:12 A-a O2 Gradient 25.5 mmHg (5-10) H 09/27/21 21:12 Hematocrit 32.8 % (42-52) L 09/27/21 21:12 Hgb O2 Saturation 64.5 % (95-100) L 09/27/21 21:12 Carboxyhemoglobin 1.7 %THgb (0.4-20.1) 09/27/21 21:12 Methemoglobin 0.9 % (0.4-1.5) 09/27/21 21:12 Total Hemoglobin 10.7 g/dL (14-18) L 09/27/21 21:12 Sodium 138.0 mmol/L (131-143) 09/27/21 21:12 Potassium 4.8 mmol/L (3.5-5.0) 09/27/21 21:12 Glucose 137.0 mg/dL (70-115) H 09/27/21 21:12 Ionized Calcium 1.2 mmol/L (1.1-1.4) 09/27/21 21:12 O2 Delivery Device Bipap 09/27/21 21:12 FiO2 45.0 % 09/27/21 21:12 Blister Packaging Machine Operator ID Buttr 09/27/21 21:12 Sodium 136 mmol/L (136-145) 09/27/21 20:16 Potassium 5.2 mmol/L (3.5-5.1) H 09/27/21 20:16 Chloride 99 mmol/L (98-107) 09/27/21 20:16 Carbon Dioxide 26 mmol/L (22-29) 09/27/21 20:16 Anion Gap 16.2 (5-19) 09/27/21 20:16 BUN 30 mg/dL (6-20) H 09/27/21 20:16 Creatinine 4.5 mg/dL (0.7-1.2) H 09/27/21 20:16 GFR Calculation 13.9 mL/min (90-130) L 09/27/21 20:16 Glucose 141 mg/dL (65-115) H 09/27/21 20:16 Calculated Osmolality 291 mOsm/kg (285-295) 09/27/21 20:16 Calcium 8.0 mg/dL (8.5-10.5) L 09/27/21 20:16 Total Bilirubin 0.5 mg/dL (0.15-1.2) 09/27/21 20:16 AST 24 U/L (0-40) 09/27/21 20:16 ALT 14 U/L (0-41) 09/27/21 20:16 Alkaline Phosphatase 123 IU/L (40-130) 09/27/21 20:16 Troponin T Baseline 410 ng/L (0-15) H* 09/27/21 20:16 Troponin T 120 Minute 408.4 ng/L (0-15) H 09/27/21 21:52 Delta Troponin T -1.6 ABS# (0-10) L 09/27/21 21:52 NT-Pro-B Natriuret Pep > 20373 pg/mL (0-125) H 09/27/21 20:16 Total Protein 6.8 g/dL (6.6-8.7) 09/27/21 20:16 Albumin 3.7 g/dL (3.5-5.2) 09/27/21 20:16 Globulin 3.1 g/dL (1.3-4.6) 09/27/21 20:16 SARS-CoV-2 Ag (Rapid) Negative (Negative) 09/27/21 20:30 EKG Data EKG 1: Other EKG Comments: Sinus rhythm, rate of 61, no sign of acute ischemia or acute abnormality. Critical Care Time Critical Care Time: Critical Care Time: Yes Total Critical Care Time: 35 Attestation: This case had a high probability of a clinically significant, sudden, or life threatening deterioration of this patient's condition which required my full and direct attention, intervention and personal management. Discharge Plan Discharge Condition: Stable Prescriptions: No Action ofloxacin 0.3 % drops 2 drp otic (ear) ONCE PRN (Reason: Tubes in tympanic membranes) Qty: 10 12RF Rx Instructions: Apply 2 drops to each ear after water exposure (DME) Wheel Chair See Rx Instructions .Route .MEDSUPPLY Qty: 1 0RF Rx Instructions: As directed HOME aspirin 81 mg Tablet,Delayed Release (Dr/Ec) 81 mg PO QAM 0RF isosorbide mononitrate 120 mg Tablet Extended Release 24 Hr 120 mg PO DAILY 0RF sodium bicarbonate 650 mg tablet 650 mg PO TID 0RF sevelamer carbonate 800 mg tablet See Rx Instructions .ROUTE .COMPLEX 0RF Rx Instructions: 2 tabs po tid with meals and 1 tab po bid with snacks venlafaxine 150 mg capsule,extended release 24hr 150 mg PO DAILY 0RF RenaPlex-D 800 mcg-12.5 mg -2,000 unit tablet 1 tab PO DAILY 0RF carvedilol 25 mg tablet 25 mg PO BID 0RF losartan 50 mg tablet 50 mg PO DAILY 0RF atorvastatin 80 mg tablet 80 mg PO BEDTIME 0RF Lantus U-100 Insulin 100 unit/mL solution 60 unit SUBCUT DAILY 0RF bumetanide 2 mg tablet See Rx Instructions .ROUTE .COMPLEX 0RF Rx Instructions: 2 tabs po bid on non hd days ( and ) trazodone 50 mg tablet 25 mg PO BEDTIME PRN (Reason: Sleep) 0RF clonazepam 0.5 mg tablet 0.5 mg PO BID 0RF acetaminophen 500 mg Tablet 500 mg PO Q6H PRN (Reason: Pain) 0RF lidocaine-prilocaine 2.5-2.5 % cream 1 applic topical . DIRECTED 0RF ropinirole 0.25 mg tablet 0.25 mg PO BEDTIME 0RF amlodipine 10 mg tablet 10 mg PO DAILY 0RF insulin aspart U-100 [Novolog U-100 Insulin aspart] 100 unit/mL solution See Rx Instructions .ROUTE .COMPLEX 0RF Rx Instructions: sliding scale tid with meals and hs triamcinolone acetonide 0.1 % ointment 1 applic TOPICAL BID PRN (Reason: unknown) 0RF gabapentin 300 mg capsule 300 mg PO DAILY PRN (Reason: Pain) 0RF mupirocin 2 % ointment See Rx Instructions .ROUTE .COMPLEX 0RF Rx Instructions: use daily on right montero with dressing change hydroxyzine pamoate 25 mg capsule 25 mg PO DAILY PRN (Reason: Itching) 0RF Rexulti 0.25 mg tablet 0.25 mg PO DAILY 0RF Lokelma 5 gram powder in packet See Rx Instructions .ROUTE .COMPLEX 0RF Rx Instructions: 1 packet (on ,,sun and sunday (non dialysis days) cefepime 1 gram recon soln 500 mg IM .after HD 42 Days Qty: 10 4RF betamethasone dipropionate 0.05 % cream 1 applic topical Q12H Qty: 45 0RF calamine-zinc oxide Lotion 1 applic topical 5XD PRN (Reason: skin irritation) Qty: 177 0RF clonidine HCl 0.2 mg Tablet 0.2 mg PO TID PRN (Reason: Blood Pressure) 0RF Referrals: Sulma Wetzel MD [Primary Care Provider] - Coding Level of Care Code ED Body Art Technician for [facility]
[2021-09-27] MEDS: FUROsemide 10 mg/mL SDV 4mL 40 MG IVP (20:22)
[2021-09-27] MEDS: ipratropium-albuterol 3 mL Neb INHALATION (20:26)
[2021-09-27 20:30] LABS: Basophils # 0.1 10^3/uL (0.0-0.1); Eosinophils # 0.4 10^3/uL (0.0-0.8); Eosinophils % 4.1 %; Hematocrit 36.6 % (42.0-52.0); Hemoglobin 10.4 g/dL (11.7-16.6); Lymphocytes # 0.8 10^3/uL (0.8-4.8); Lymphocytes % 7.6 %; Mean Corpuscular HGB Conc 28.4 g/dL (30.0-36.0); Mean Corpuscular Hemoglobin 29.2 pg (28.0-34.0); Mean Corpuscular Volume 102.8 fl (80-94); Mean Platelet Volume 11.2 fL (7.4-10.4); Monocytes # 1.1 10^3/uL (0.2-0.9); Neutrophils # 7.75 10^3/uL (1.8-7.7); Neutrophils % 75.5 %; Nucleated Red Blood Cells # 0.1 /100WBC; Nucleated Red Blood Cells % 0.9 %; Platelet Count 215 10^3/cmm (130-400); Red Blood Count 3.56 10^6/uL (4.1-5.3); Red Cell Distribution Width 16.7 % (12.1-15.1); White Blood Count 10.3 10^3/uL (4.0-10.0)
--- NOTE | 2021-09-27 20:36 | PC.NURSE ---
patient received with c/o dizziness on EMS arrival to house they assisted him to stretcher when he became unresponsive for 1 min. CPAP placed and transported to hospital. on arrival to ER patient alert and oriented on CPAP, BIPap placed and patient remains calm and cooperative.
[2021-09-27 20:59] LABS: Alanine Aminotransferase 14 U/L (0-41); Albumin Level 3.7 g/dL (3.5-5.2); Alkaline Phosphatase 123 IU/L (40-130); Blood Urea Nitrogen 30 mg/dL (6-20); Carbon Dioxide 26 mmol/L (22-29); Chloride 99 mmol/L (98-107); Globulin 3.1 g/dL (1.3-4.6); Glomerular Filtration Rate 13.9 mL/min (90-130); Glucose 141 mg/dL (65-115); Osmolality Calculated 291 mOsm/kg (285-295); Sodium 136 mmol/L (136-145); Total Bilirubin 0.5 mg/dL (0.15-1.2); Total Protein 6.8 g/dL (6.6-8.7)
[2021-09-27 21:01] LABS: Anion Gap 16.2 (5-19); Aspartate Amino Transferase 24 U/L (0-40); Potassium 5.2 mmol/L (3.5-5.1)
[2021-09-27 21:02] LABS: Troponin(5th) Baseline 410 ng/L (0-15)
[2021-09-27 21:05] LABS: SARS Covid-2 Antigen Negative (Negative)
[2021-09-27 21:24] LABS: ABG PH Result 7.22 (7.35-7.45); Alveolar-Arterial Oxygen Gradi 25.5 mmHg (5-10); Arterial Blood Gas Hematocrit 32.8 % (42-52); Base Excess ABG 0.9 mmol/L (-2.0-2.0); Blood Gas Allen Test Pos; Blood Gas Sample Site Radial, left; Blood Gas Sample Type Arterial; Carboxyhemoglobin 1.7 %THgb (0.4-20.1); HGB O2 Sat 64.5 % (95-100); Ionized Calcium Level - ABG 1.2 mmol/L (1.1-1.4); Methemoglobin 0.9 % (0.4-1.5); Oxygen Device BIPAP; Oxygen Saturation ABG 66.2; PO2 ABG 40.2 mmHg (80.0-100.0); Potassium Level - ABG 4.8 mmol/L (3.5-5.0); Total Hemoglobin 10.7 g/dL (14-18)
[2021-09-27 21:25] LABS: ABG PCO2 72.7 mmHg (35-45)
[2021-09-27 21:37] LABS: NT Pro B Type Natriuretic Pept > 70000 pg/mL (0-125)
--- NOTE | 2021-09-27 22:17 | ECG_ITS ---
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 Measurements Intervals Enigma Rate: 58 P: 24 LA: 215 QRS: 123 QRSD: 110 T: -8 QT: 443 QTc: 438 Interpretive Statements SINUS BRADYCARDIA WITH FIRST DEGREE AV BLOCK POSSIBLE RIGHT VENTRICULAR HYPERTROPHY [SOME/ALL OF: PROMINENT R IN V1, LATE TRANSITION, RAD, JEROME, SSS] SEPTAL MYOCARDIAL INFARCTION , PROBABLY OLD [40+ ms Q WAVE IN V1/V2] Compared to ECG 09/27/2021 20:19:49 First degree AV block now present Myocardial infarct finding now present Sinus rhythm no longer present Electronically Signed On 09-28-2021 16:06:59 GREIGE GOODS MARKER by Erik Arguelles M.D. [id number]
[2021-09-27 22:22] LABS: Troponin 5 2HR 408.4 ng/L (0-15); Troponin 5 2HR Delta -1.6 ABS# (0-10)
[2021-09-27] MEDS: iohexol 350 mg/mL 100 mL Btl IV (23:32)
[2021-09-28] VITALS (75 sets, daily range): BP systolic 115–155; BP diastolic 64–90; PULSE 58–87; RESP 13–29; TEMP 33.3–36.4; O2SAT 86–99; BMI 43.7
--- NOTE | 2021-09-28 00:09 | ECG_ITS ---
[facility] Test Date: 2021-09-28 Pat Name: Akil Velasco Department: Room: ICU10 Gender: Male Green Inspector: : 1970 Requested By: Bill Sellers Order Number: [id number] Ta MD: Erik Arguelles M.D. Measurements Intervals [place]isle Rate: 60 P: 51 AL: 173 QRS: 131 QRSD: 117 T: -3 QT: 455 QTc: 458 Interpretive Statements SINUS RHYTHM PATTERN CONSISTENT WITH PULMONARY DISEASE POSSIBLE RIGHT VENTRICULAR HYPERTROPHY [SOME/ALL OF: PROMINENT R IN V1, LATE TRANSITION, RAD, JEROME, SSS] ABNORMAL QRS-T ANGLE [QRS-T AXIS DIFFERENCE > 60] Compared to ECG 09/27/2021 21:48:49 Sinus bradycardia no longer present First degree AV block no longer present Myocardial infarct finding no longer present Electronically Signed On 09-28-2021 16:01:13 HEAD OF ETHICS AND COMPLIANCE by Erik Arguelles M.D. [id number]
--- NOTE | 2021-09-28 00:14 | P.HP_ITS ---
Providers/Chief Complaint Admitting Physician: Bill Sellers DO Primary Care Provider: Sulma Wetzel MD Chief Complaint: RESP. DISTRESS History of Present Illness The patient is a 51-year-old male who presents with chief complaint of dyspnea which started proximate 24 hours prior to hospitalization. Patient has known history of COPD for which she is O2 dependent 2.5 L as well as CHF with preserved ejection fraction however he has grade 2 diastolic dysfunction and moderate tricuspid regurgitation and the patient also has known history of end- stage renal disease for which she is dependent on hemodialysis however his compliance is questionable. He states his dyspnea was of sudden onset proximally 24 hours prior to hospitalization. He admits to onset of nausea, cough which is nonproductive, wheeze, diarrhea. He denies fever, rigors, vomiting, abdominal pain, myalgia, chest pain, peripheral edema. He presents for further evaluation Review of Systems General: Reports: 10 or more systems reviewed and unremarkable except in HPI and below Medications/Allergies Home Medications Medication Instructions Recorded Confirmed Last Taken Type aspirin 81 mg tablet,delayed 81 mg PO QAM 10/04/20 09/12/21 09/06/21 History release isosorbide mononitrate 120 mg 120 mg PO DAILY 10/04/20 09/12/21 09/06/21 History tablet,extended release 24 hr sevelamer carbonate 800 mg tablet See Rx Instructions .ROUTE .COMPLEX 11/11/20 09/12/21 09/06/21 History sodium bicarbonate 650 mg tablet 650 mg PO TID 11/11/20 09/12/21 09/06/21 History carvedilol 25 mg tablet 25 mg PO BID 04/25/21 09/12/21 09/06/21 History vit B,C-folic ac 800 mcg-zinc 12.5 1 tab PO DAILY 04/25/21 09/12/21 09/06/21 History mg-selen-D3 2,000 unit-vit E tablet (RenaPlex-D) ofloxacin 0.3 % eye drops 2 drp OTIC (EAR) ONCE PRN #10 ml 08/16/21 09/12/21 Unknown Rx Wheel Chair #1 ea 08/18/21 09/12/21 Unknown Rx acetaminophen 500 mg tablet 500 mg PO Q6H PRN 08/22/21 09/12/21 Unknown History amlodipine 10 mg tablet 10 mg PO DAILY 08/22/21 09/12/21 09/06/21 History atorvastatin 80 mg tablet 80 mg PO BEDTIME 08/22/21 09/12/21 09/06/21 History brexpiprazole 0.25 mg tablet 0.25 mg PO DAILY 08/22/21 09/12/21 09/06/21 History (Rexulti) bumetanide 2 mg tablet See Rx Instructions .ROUTE .COMPLEX 08/22/21 09/12/21 09/06/21 History clonazepam 0.5 mg tablet 0.5 mg PO BID 08/22/21 09/12/21 09/06/21 History gabapentin 300 mg capsule 300 mg PO DAILY PRN 08/22/21 09/12/21 09/06/21 History hydroxyzine pamoate 25 mg capsule 25 mg PO DAILY PRN 08/22/21 09/12/21 Unknown History insulin aspart U-100 100 unit/mL See Rx Instructions .ROUTE .COMPLEX 08/22/21 09/12/21 Unknown History subcutaneous solution (Novolog U-100 Insulin aspart) insulin glargine 100 unit/mL 60 unit SUBCUT DAILY 08/22/21 09/12/21 09/06/21 History subcutaneous solution (Lantus U-100 Insulin) lidocaine-prilocaine 2.5 %-2.5 % 1 applic TOPICAL . DIRECTED 08/22/21 09/12/21 Unknown History topical cream losartan 50 mg tablet 50 mg PO DAILY 08/22/21 09/12/21 09/06/21 History mupirocin 2 % topical ointment See Rx Instructions .ROUTE .COMPLEX 08/22/21 09/12/21 Unknown History ropinirole 0.25 mg tablet 0.25 mg PO BEDTIME 08/22/21 09/12/21 09/06/21 History sodium zirconium cyclosilicate 5 See Rx Instructions .ROUTE .COMPLEX 08/22/21 09/12/21 09/06/21 History gram oral powder packet (Lokelma) trazodone 50 mg tablet 25 mg PO BEDTIME PRN 08/22/21 09/12/21 Unknown History triamcinolone acetonide 0.1 % 1 applic TOPICAL BID PRN 08/22/21 09/12/21 Unknown History topical ointment betamethasone dipropionate 0.05 % 1 applic TOPICAL Q12H #45 g 08/26/21 09/12/21 09/06/21 Rx topical cream calamine-zinc oxide lotion 1 applic TOPICAL 5XD PRN #177 ml 08/26/21 09/12/21 Unknown Rx cefepime 1 gram solution for 500 mg IM .after HD 42 Days #10 ea 08/26/21 09/12/21 Unknown Rx injection venlafaxine 150 mg 150 mg PO DAILY 09/07/21 09/12/21 09/06/21 History capsule,extended release 24 hr clonidine HCl 0.2 mg tablet 0.2 mg PO TID PRN 09/12/21 09/12/21 Unknown History Allergies Allergy/AdvReac Type Severity Reaction Status Date / Time vancomycin Allergy Unknown Rash Verified 09/12/21 09:39 linezolid [From Zyvox] Allergy tendonitis Verified 09/12/21 09:39 ciprofloxacin [From Cipro] AdvReac Severe Tendonitis Verified 09/12/21 09:39 PFSH Acute PFSH: Medical History Acute and chronic respiratory failure with hypercapnia Anemia BMI 50.0-59.9, adult Cardiac arrest (~07/2020) when had covid CHF (congestive heart failure), NYHA class III Chronic respiratory failure with hypoxia and hypercapnia Chronic venous insufficiency COPD (chronic obstructive pulmonary disease) Diabetic foot ulcers Diabetic ulcer of left foot ESRD (end stage renal disease) on dialysis ESRD on dialysis First degree heart block Fracture of fifth metatarsal bone of left foot Fracture of fourth metatarsal bone of left foot Fracture, thoracic vertebra T7-T8 History of renal cell carcinoma Hypertension Lung nodule Morbid obesity with BMI of 40.0-44.9, adult Neuropathy Obesity hypoventilation syndrome Obstructive sleep apnea non compliant with home bipap/cpap Osteomyelitis Pneumonia due to 2019-nCoV (~07/2020) PVD (peripheral vascular disease) Renal cell carcinoma History bilateral renal cell carcinoma 2007 then recurrence on the contralateral side 2011. No recurrence for long-term follow-up with some suspicion on CT scan April 2020. Restrictive lung disease Type 2 diabetes mellitus with diabetic polyneuropathy Urinary retention Surgical History H/O partial nephrectomy bilateral H/O wisdom tooth extraction History of cataract surgery Hx of lymph node excision Family History Father , at age 65 Diabetes Cancer Metastatic prostate cancer to liver Mother , at age 72 Diabetes Grandfather Diabetes Cancer Other Hyperlipidemia Social History Smoking and tobacco status: never smoked Second hand smoke exposure: Yes Smoking risk assessment/counseling performed?: Yes Alcohol intake: current Alcohol intake frequency: holidays/special occasions only Lives independently: Yes Household members: spouse Housing: House Marital status: service: No Current occupational status: retired Pets and animals: Yes History of recent travel: No Current gender identity: Male Vitals/I&O/Wt Last Vital Signs Temp 97.7 F 09/27/21 20:09 Pulse 63 09/27/21 23:40 Resp 22 H 09/27/21 23:10 BP 117/71 09/27/21 23:10 Pulse Ox 94 09/27/21 23:40 Weight last 48 hrs Weight 147.463 kg Weight 149.685 kg Physical Exam Const: COMMON NORMALS: no acute distress, average body habitus, patient oriented x3, no limitations, healthy appearing, alert and well nourished HENMT: COMMON NORMALS: normocephalic, atraumatic, hearing grossly normal bilaterally, external ears normal, EAC's normal, TM's normal bilaterally, Normal external nose present, Normal nasal mucous membranes and turbinates present, moist oral mucous membranes, oropharynx normal, dentition normal and gingiva normal HEAD & SCALP: normal to inspection FACE & SINUS: normal facial exam NOSE: Normal external nose present EXTERNAL EAR: Yes external ears normal MOUTH: Normal oral and palatal mucosa present Eye: COMMON NORMALS: Equal, round and reactive pupils present, EOMs intact bilaterally, conjunctivae normal, no scleral icterus, no papilledema, normal visual ray by confrontation and fundi normal bilaterally PUPIL: Yes Equal, round and reactive pupils present EOM: Yes EOM abnormal Neck/C-Spine: COMMON NORMALS: full ROM, no lymphadenopathy, supple, no me ningeal signs, no JVD, Thyroid normal and No carotid bruits Chest: COMMONS NORMALS: normal inspection of the chest, normal palpation of entire chest wall, normal inspection of the breasts and normal palpation of the breasts Resp: COMMON NORMALS: normal respiratory effort, No retractions, No use of accessory muscles, clear to auscultation bilaterally and percussion normal Cardio: COMMON NORMALS: no JVD, regular rate, regular rhythm, S1 normal heart sound present, S2 normal heart sound present, No gallops present (Cardio), No clicks present (Cardio), No murmurs present (Cardio), No rub (Cardio) and Peripheral pulses 2+ throughout GI: COMMON NORMALS: Normal to inspection, nondistended, normoactive bowel sounds present, Soft to palpation, non-tender, No hepatosplenomegaly present, no masses and no bruits : COMMON NORMALS: Yes no CVA tenderness, Yes normal external exam, Yes Testes normal, Yes scrotum normal, Yes no scrotal swelling and Yes No hernias present Back/Pelvis: COMMON NORMALS: no CVA tenderness, thoracic and lumbar spine normal to inspection, no thoracic nor lumbar tenderness, thoraco-lumbar ROM normal and straight leg raise negative bilaterally COCCYX: swelling, Coccyx tenderness present and Other pelvic findings Extremity: COMMON NORMALS: normal to inspection, full ROM, capillary refill normal, no joint enlargement, no clubbing, cyanosis or edema, no calf tenderness and no pedal edema Neuro: COMMON NORMALS: patient oriented x3, CN's II-XII intact bilaterally, moves all extremities, no focal motor deficits, no sensory deficits noted, deep tendon reflexes 2+ bilaterally and gait normal DEEP TENDON REFLEXES: Right triceps reflex intensity grade: 2+, Left triceps reflex intensity grade: 2+, Rt Biceps (C5, C6): 2+, Left biceps reflex intensity grade: 2+, Right brachioradialis reflex intensity grade: 2+, Left brachioradialis reflex intensity grade: 2+, Right patellar reflex intensity grade: 2+, Left patellar reflex intensity grade: 2+, Right ankle reflex intensity grade: 2+ and Left ankle reflex intensity grade: 2+ PUPIL EXAM: Normal pupillary francisco j ctivity/response: bilateral, Dilated: bilateral, Pinpoint: bilateral, Mid position: bilateral, Sluggish: bilateral and Fixed/non-reactive: bilateral Psych: COMMON NORMALS: mental status grossly normal, Normal thought process present, cooperative, normal affect, speech normal, activity/motor behavior normal, denies hallucinations, denies homicidal ideation and denies suicidal ideation Skin: COMMON NORMALS: no rashes or lesions noted, no wounds, turgor normal, no jaundice, no petechiae and no mottling Data : 09/27/21 20:16 09/27/21 20:16 A&P Assessment and plan (1) Lung nodule: Status: Chronic Plan Dyspnea likely secondary to COPD exacerbation for which the patient is typically O2 dependent 2.5 L. Solu-Medrol 6 mg IV every 8 hours plus tach cycle 100 mg by mouth twice a day post DuoNeb every 4 hours. Patient currently on BiPAP. Recheck ABG at 6 AM on September 27, 2021 Depression Restless leg syndrome Anxiety History of bilateral renal cell carcinoma, status post bilateral partial nephrectomy Peripheral vascular disease Portal hypertension Hyperparathyroidism End stage renal disease for which the patient is hemodialysis dependent. Will monitor serum electrolytes periodically. Emergency department physician has notified me that he has spoken with the certified histologic technician regarding this patient Elevated troponin, chronic. Will monitor patient on telemetry and checks her enzymes. Recheck EKG on the morning of September 27, 2021. Aspirin 81 Mill grams by mouth daily plus Lipitor 80 Mill grams by mouth daily at bedtime. No beta- jag due to bradycardia Neuropathy History of lung nodule. Outpatient follow-up with his primary care physician or with a provider Macrocytic anemia. We will monitor hemoglobin level intermittently. Check serum ferritin, iron panel, fecal occult blood, TSH, free T4, B12, folate Grade 2 diastolic dysfunction Moderate tricuspid regurgitation Coronary artery disease. Aspirin 81 Mill grams by mouth daily plus Lipitor 80 Mill grams by mouth daily at bedtime Diabetes. Will check fingerstick glucose before meals and at bedtime and provide insulin sliding scale Hyperlipidemia. Lipitor 80 mg by mouth daily at bedtime Hypertension Obesity. The patient becomes regarding lifestyle modification History of medical noncompliance. The patient will be counseled regarding medical compliance Obstructive sleep apnea. CPAP/BiPAP: Okay to use home device and/or pressure when sleeping if the patient uses CPAP/BiPAP at home GI Proflex is. Protonix 40 Mill grams by mouth daily DVT prophylaxis. Heparin 5000 units subcutaneous leak every 12 hours Attestations Medical Necessity Statement*: Hospitalization is medically necessary Critical Care Time: Critical Care Time (min): 45 Coding Level of Care Code Acute Keyboard Instrument Repairer for Patricia Reid Diagnoses Lung nodule R91.1
[2021-09-28] MEDS: heparin 5,000 unit/mL INJ 1 mL 5000 UNIT SUBCUT ×3 (00:32→23:42)
[2021-09-28 02:33] LABS: Basophils # 0.1 10^3/uL (0.0-0.1); Basophils % 0.6 %; Eosinophils # 0.1 10^3/uL (0.0-0.8); Eosinophils % 1.2 %; Hematocrit 39.7 % (42.0-52.0); Hemoglobin 11.1 g/dL (11.7-16.6); Lymphocytes # 0.4 10^3/uL (0.8-4.8); Lymphocytes % 4.7 %; Mean Corpuscular Hemoglobin 29.5 pg (28.0-34.0); Mean Corpuscular Volume 105.6 fl (80-94); Mean Platelet Volume 10.9 fL (7.4-10.4); Monocytes # 0.2 10^3/uL (0.2-0.9); Monocytes % 2.5 %; Neutrophils % 90.4 %; Nucleated Red Blood Cells % 0.3 %; Platelet Count 174 10^3/cmm (130-400); Red Blood Count 3.76 10^6/uL (4.1-5.3); Red Cell Distribution Width 16.5 % (12.1-15.1); White Blood Count 9.1 10^3/uL (4.0-10.0)
[2021-09-28 03:10] LABS: Anion Gap 21.5 (5-19); Blood Urea Nitrogen 33 mg/dL (6-20); Calcium 8.9 mg/dL (8.5-10.5); Carbon Dioxide 22 mmol/L (22-29); Chloride 98 mmol/L (98-107); Ferritin 203 ng/mL (30-400); Glucose 199 mg/dL (65-115); Iron 33 ug/dL (59-158); Magnesium 2.3 mg/dL (1.7-2.3); Osmolality Calculated 295 mOsm/kg (285-295); Percent Saturation 17.5 % (20-50); Phosphorus 5.1 mg/dL (2.5-4.5); Potassium 5.5 mmol/L (3.5-5.1); Sodium 136 mmol/L (136-145); Thyroid Stimulating Hormone 3.25 uIU/mL (0.27-4.20); Total Iron Binding Capacity 188 mcg/dl; Unsaturated Iron Binding 155 ug/dL (112-347); Vitamin B12 1295 pg/mL (232-1245)
[2021-09-28 03:43] LABS: Free T4 Free Thyroxine 1.22 ng/dL (0.82-1.77)
[2021-09-28] MEDS: ipratropium-albuterol 3 mL Neb INHALATION ×6 (04:02→23:19)
[2021-09-28 04:05] LABS: Folate Level > 20.0 ng/mL (4.5-32.2)
[2021-09-28 04:31] LABS: ABG PH Result 7.29 (7.35-7.45); Base Excess ABG 1.3 mmol/L (-2.0-2.0); Blood Gas Allen Test Pos; Blood Gas Sample Type Arterial; HCO3 ABG 29.1 mmol/L (22-26); PO2 ABG 71.7 mmHg (80.0-100.0)
[2021-09-28 04:32] LABS: Blood Gas Operator Identificat JB; Blood Gas Sample Site Radial, right; Oxygen Device BIPAP
[2021-09-28 04:35] LABS: ABG PCO2 61.3 mmHg (35-45)
--- NOTE | 2021-09-28 06:09 | ECG_ITS ---
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 Measurements Intervals [place] Rate: 66 P: 51 MO: 176 QRS: 129 QRSD: 117 T: 1 QT: 437 QTc: 458 Interpretive Statements SINUS RHYTHM PATTERN CONSISTENT WITH PULMONARY DISEASE POSSIBLE RIGHT VENTRICULAR HYPERTROPHY [SOME/ALL OF: PROMINENT R IN V1, LATE TRANSITION, RAD, JEROME, SSS] Compared to ECG 09/28/2021 01:25:30 No significant changes Electronically Signed On 09-28-2021 16:06:24 HUMAN CAPITAL CONSULTANT by Erik Arguelles M.D. [email or web address]
[2021-09-28 08:10] LABS: Glucose Point of Care 204 mg/dL (70-110)
[2021-09-28] MEDS: pantoprazole DR 40 mg Tablet PO (08:18)
[2021-09-28] MEDS: aspirin 81 mg Chew Tablet PO (08:18)
[2021-09-28] MEDS: doxycycline 100 mg Tablet PO ×2 (08:18→17:34)
[2021-09-28] MEDS: insulin lispro 100 unit/1 mL SUBCUT ×4 (08:26→20:47)
--- NOTE | 2021-09-28 10:00 | PM.CONSULT ---
Providers/Reason For Consult Consulting Physician/Specialty*: Nephrology Reason for Consult*: ESRD mgmt Attending Physician: Bill Sellers DO Primary Care Provider: Sulma Wetzel MD History of Present Illness History of Present Illness Thank you for consultation, today had the pleasure of reviewing Mr. Velasco for evaluation of end-stage kidney disease. We know him well from numerous previous hospitalizations. Presents with increased shortness of breath, seems to be responding a little better now that he has had BiPAP overnight. Minimal global extremity edema, admission chest x-ray demonstrates no acute findings and admission CTA also demonstrates no evidence of pulmonary embolism, some ascites, cardiomegaly and anasarca. He last received dialysis on Sunday. Uneventful treatment. No acute uremic symptoms. Access is currently working well. Review of Systems Narrative: ROS - 12 point review of systems completed per HPI and subjective assessment, this includes Constitutional: Weakness, fatigue Respiratory: SOB on exertion, comfortable at rest CardioVasc: No chest pain, palpitations Gastrointestinal: No nausea, no vomiting Neurological: No seizures, no AMS Derm: No new rashes, lesions or wounds Immunological: No seasonal and no food allergies Medications/Allergies Home Medications Medication Instructions Recorded Confirmed Last Taken Type aspirin 81 mg tablet,delayed 81 mg PO QAM 10/04/20 09/12/21 09/06/21 History release isosorbide mononitrate 120 mg 120 mg PO DAILY 10/04/20 09/12/21 09/06/21 History tablet,extended release 24 hr sevelamer carbonate 800 mg tablet See Rx Instructions .ROUTE .COMPLEX 11/11/20 09/12/21 09/06/21 History sodium bicarbonate 650 mg tablet 650 mg PO TID 11/11/20 09/12/21 09/06/21 History carvedilol 25 mg tablet 25 mg PO BID 04/25/21 09/12/21 09/06/21 History vit B,C-folic ac 800 mcg-zinc 12.5 1 tab PO DAILY 04/25/21 09/12/21 09/06/21 History mg-selen-D3 2,000 unit-vit E tablet (RenaPlex-D) ofloxacin 0.3 % eye drops 2 drp OTIC (EAR) ONCE PRN #10 ml 08/16/21 09/12/21 Unknown Rx Wheel Chair #1 ea 08/18/21 09/12/21 Unknown Rx acetaminophen 500 mg tablet 500 mg PO Q6H PRN 08/22/21 09/12/21 Unknown History amlodipine 10 mg tablet 10 mg PO DAILY 08/22/21 09/12/21 09/06/21 History atorvastatin 80 mg tablet 80 mg PO BEDTIME 08/22/21 09/12/21 09/06/21 History brexpiprazole 0.25 mg tablet 0.25 mg PO DAILY 08/22/21 09/12/21 09/06/21 History (Rexulti) bumetanide 2 mg tablet See Rx Instructions .ROUTE .COMPLEX 08/22/21 09/12/21 09/06/21 History clonazepam 0.5 mg tablet 0.5 mg PO BID 08/22/21 09/12/21 09/06/21 History gabapentin 300 mg capsule 300 mg PO DAILY PRN 08/22/21 09/12/21 09/06/21 History hydroxyzine pamoate 25 mg capsule 25 mg PO DAILY PRN 08/22/21 09/12/21 Unknown History insulin aspart U-100 100 unit/mL See Rx Instructions .ROUTE .COMPLEX 08/22/21 09/12/21 Unknown History subcutaneous solution (Novolog U-100 Insulin aspart) insulin glargine 100 unit/mL 60 unit SUBCUT DAILY 08/22/21 09/12/21 09/06/21 History subcutaneous solution (Lantus U-100 Insulin) lidocaine-prilocaine 2.5 %-2.5 % 1 applic TOPICAL . DIRECTED 08/22/21 09/12/21 Unknown History topical cream losartan 50 mg tablet 50 mg PO DAILY 08/22/21 09/12/21 09/06/21 History mupirocin 2 % topical ointment See Rx Instructions .ROUTE .COMPLEX 08/22/21 09/12/21 Unknown History ropinirole 0.25 mg tablet 0.25 mg PO BEDTIME 08/22/21 09/12/21 09/06/21 History sodium zirconium cyclosilicate 5 See Rx Instructions .ROUTE .COMPLEX 08/22/21 09/12/21 09/06/21 History gram oral powder packet (Lokelma) trazodone 50 mg tablet 25 mg PO BEDTIME PRN 08/22/21 09/12/21 Unknown History triamcinolone acetonide 0.1 % 1 applic TOPICAL BID PRN 08/22/21 09/12/21 Unknown History topical ointment betamethasone dipropionate 0.05 % 1 applic TOPICAL Q12H #45 g 08/26/21 09/12/21 09/06/21 Rx topical cream calamine-zinc oxide lotion 1 applic TOPICAL 5XD PRN #177 ml 08/26/21 09/12/21 Unknown Rx cefepime 1 gram solution for 500 mg IM .after HD 42 Days #10 ea 08/26/21 09/12/21 Unknown Rx injection venlafaxine 150 mg 150 mg PO DAILY 09/07/21 09/12/21 09/06/21 History capsule,extended release 24 hr clonidine HCl 0.2 mg tablet 0.2 mg PO TID PRN 09/12/21 09/12/21 Unknown History Allergies Allergy/AdvReac Type Severity Reaction Status Date / Time vancomycin Allergy Unknown Rash Verified 09/12/21 09:39 linezolid [From Zyvox] Allergy tendonitis Verified 09/12/21 09:39 ciprofloxacin [From Cipro] AdvReac Severe Tendonitis Verified 09/12/21 09:39 Current Medications Generic Name Dose Route Start Last Admin Trade Name Freq PRN Reason Stop Dose Admin Albuterol/Ipratropium 3 ml 09/28/21 04:00 09/28/21 07:46 Ipratropium-Albuterol 3 Ml Neb INHALATION 3 ml Q4H.RESPIRATORY [place] Administration Aspirin 81 mg 09/28/21 09:00 09/28/21 08:18 Aspirin 81 Mg Chew Tablet PO 81 mg DAILY [place] Administration Doxycycline Monohydrate 100 mg 09/28/21 09:00 09/28/21 08:18 Doxycycline 100 Mg Tablet PO 100 mg BID [place] Administration Protocol Heparin Sodium (Porcine) 5,000 unit 09/28/21 00:15 09/28/21 00:32 Heparin 5,000 Unit/Ml Inj 1 Ml SUBCUT 5,000 unit Q12H [place] Administration Insulin Human Lispro 0 unit 09/28/21 08:00 09/28/21 08:26 Insulin Lispro 100 Unit/1 Ml SUBCUT 8 unit TIDWM [place] Administration Protocol Methylprednisolone Sodium Succinate 60 mg 09/28/21 00:15 09/28/21 08:17 Methylprednisolone Sod Succ 125 Mg/2 Ml Inj IVP 60 mg Q8H [place] Administration Pantoprazole Sodium 40 mg 09/28/21 09:00 09/28/21 08:[address] 40 Mg Tablet PO 40 mg DAILY [place] Administration PFSH Acute PFSH: Medical History (Updated 09/28/21 @ 10:02 by John Peters) Acute and chronic respiratory failure with hypercapnia Anemia BMI 50.0-59.9, adult Cardiac arrest (~07/2020) when had covid CHF (congestive heart failure), NYHA class III Chronic respiratory failure with hypoxia and hypercapnia Chronic venous insufficiency COPD (chronic obstructive pulmonary disease) Diabetic foot ulcers Diabetic ulcer of left foot ESRD (end stage renal disease) on dialysis ESRD on dialysis First degree heart block Fracture of fifth metatarsal bone of left foot Fracture of fourth metatarsal bone of left foot Fracture, thoracic vertebra T7-T8 History of renal cell carcinoma Hypertension Lung nodule Morbid obesity with BMI of 40.0-44.9, adult Neuropathy Obesity hypoventilation syndrome Obstructive sleep apnea non compliant with home bipap/cpap Osteomyelitis Pneumonia due to 2019-nCoV (~07/2020) PVD (peripheral vascular disease) Renal cell carcinoma History bilateral renal cell carcinoma 2007 then recurrence on the contralateral side 2011. No recurrence for long-term follow-up with some suspicion on CT scan April 2020. Restrictive lung disease Type 2 diabetes mellitus with diabetic polyneuropathy Urinary retention Surgical History H/O partial nephrectomy bilateral H/O wisdom tooth extraction History of cataract surgery Hx of lymph node excision Family History Father , at age 65 Diabetes Cancer Metastatic prostate cancer to liver Mother , at age 72 Diabetes Grandfather Diabetes Cancer Other Hyperlipidemia Social History Smoking and tobacco status: never smoked Second hand smoke exposure: Yes Smoking risk assessment/counseling performed?: Yes Alcohol intake: current Alcohol intake frequency: holidays/special occasions only Lives independently: Yes Household members: spouse Housing: House Marital status: service: No Current occupational status: retired Pets and animals: Yes History of recent travel: No Current gender identity: Male Vitals/I&O/Wt Last Vital Signs Temp 96.8 F L 09/28/21 04:00 Pulse 67 09/28/21 08:30 Resp 19 H 09/28/21 08:30 BP 137/71 09/28/21 08:30 Pulse Ox 92 09/28/21 08:30 09/27/21 09/28/21 09/28/21 22:59 06:59 14:59 Intake Total 0 / 0 Output Total 0 / 0 Balance 0 / 0 Weight last 48 hrs Weight 150.139 kg Weight 147.463 kg Weight 149.685 kg Physical Exam Narrative: Constitutional: Awake, comfortable HEENT: Wet mucosa, no jvp, non icteric Lungs: Bilaterally clear without discernible wheeze, rales in all lung zones CVS: S1 S2, no murmurs Abdo: Soft, BS ok Ext 4: Minimal edema, peripheral perfusion with no cyanosis Neurological: Grossly non-foca Data : 09/28/21 02:17 09/28/21 02:17 A&P Assessment and plan (1) ESRD on dialysis: 1. ESRD Plan for dialysis today, 2K bath, ultrafiltration 3-4 L as tolerated. Continue M, W, F schedule Dose medication for GFR less than 15 on dialysis 2. Chemistry Hyperkalemia, not unexpected, will come down with dialysis, no other therapy. 3. Shortness of breath Likely an element of COPD/hypervolemia causing this Of note cardiomegaly was seen on CTA, last echo demonstrates dilated RV and I suspect that he has high right-sided pressures. Dialysis with ultrafiltration should help. 4. Chronic ESRD issues To manage as an outpatient as part of standard monthly management, continue home medication. John Peters MD Nephrology [phone] Patient seen and examined via telemedicine, with the assistance of the bedside RN > 25 min spent in evaluation and mgmt of patient Status: Acute Consult Attestations Medical Necessity Statement: Eval for ESRD mgmt Coding Level of Care Code Acute Bleach Mixer for Chg Fwd Diagnoses ESRD on dialysis N18.6; Z99.2
--- NOTE | 2021-09-28 10:42 | PC.CHAP ---
Pastoral Care Encounter/Spiritual Assessment Type of Contact [] Declined senior mechanical estimator visit [] Patient/Family/Request visit [] Outpatient visit [] Follow-up visit [] Physician referral [] Code/Alert [x] Routine visit [] Staff referral [] Actively dying [] Patient sleeping [] Family support [] [] Out of room [] Palliative care [] [] Receiving care in room [] Pre-surgical visit [] Trauma [] Long length of stay [x] ICU visit [] Other: Relational/Emotional Strength [] Patient feels connected with others/family/visitors/staff [] Distress [] Loneliness/isolation [] Abandonment Spirituality of Patient [] Person of Lizabeth [] Attends Orthodox of their Lizabeth [] Believes in Prayer [] Reads Bible or Confucianism materials [] There are Spiritual issues to be addressed Abrasive Coating Machine Operator Interventions [x] Prayer [x] Active listening [x] Non-anxious presence [x] Spiritual/emotional support [] Crisis/trauma care [] Spiritual counseling [] Bereavement support [] Provided bereavement packet [] Provided Bible/devotional materials [] Provided toy/stuffed animal, coloring book to patient or family member [] Provided Communion [] Anointing/[place] [] Salvation [x] Completed spiritual assessment [] Other: Impact on Illness or Injury [] Angry [] Fearful [] Anxious [] Often cries [] Exhaustion [] Unable to work [] Unable to attend mandaen [] Unable to walk/stand [] Unable to read [] Unable to drive [] Unable to eat/drink [] Unable to sleep [] Unable to be with family [] Patient intubated [] Other: Summary resting good.. ate breakfast... Time spent with patient 10 min
[2021-09-28 11:30] LABS: Glucose Point of Care 225 mg/dL (70-110)
--- NOTE | 2021-09-28 14:41 | PM.PN ---
Subjective Subjective: Patient was seen and examined this morning, states that he had to come to the hospital because, his shortness of breath this time was completely different from the prior episodes, he was also confused, He attributes all these episodes of recurrent admission due to difficulty using BiPAP at night at home, due to poor fitting of the mask, according to him, new mask fitting has been done, and likely this will improve his compliance with the BiPAP, After being on the BiPAP overnight he is feeling better. He is due for dialysis today. AM ABG vitals and labs have been reviewed. Medications: Medication Review Details: Generic Name Dose Route Start Last Admin Trade Name Reid PRN Reason Stop Dose Admin Albuterol/Ipratrop ium 3 ml 09/28/21 04:00 09/28/21 12:40 Ipratropium-Albu terol 3 Ml Neb INHALATION 3 ml Q4H.RESPIRATORY S CH Administration Aspirin 81 mg 09/28/21 09:00 09/28/21 08:18 Aspirin 81 Mg Ch ew Tablet PO 81 mg DAILY [place] Administration Doxycycline Monohy drate 100 mg 09/28/21 09:00 09/28/21 08:18 Doxycycline 100 Mg Tablet PO 100 mg BID [place] Administration Protocol Heparin Sodium (Po rcine) 5,000 unit 09/28/21 00:15 09/28/21 11:32 Heparin 5,000 Un it/Ml Inj 1 Ml SUBCUT 5,000 unit Q12H [place] Administration Insulin Human Lisp ro 0 unit 09/28/21 08:00 09/28/21 11:32 Insulin Lispro 1 00 Unit/1 Ml SUBCUT 10 unit TIDWM [place] Administration Protocol Pantoprazole Sodiu m 40 mg 09/28/21 09:00 09/28/21 08:[address] 40 Mg Tablet PO 40 mg DAILY [place] Administration Vitals/I&O/Wt Last Vital Signs Temp 96.8 F L 09/28/21 04:00 Pulse 75 09/28/21 12:47 Resp 18 09/28/21 12:46 BP 130/71 09/28/21 12:30 Pulse Ox 94 09/28/21 12:46 09/27/21 09/28/21 09/28/21 22:59 06:59 14:59 Intake Total 0 / 0 240 / 240 Output Total 0 / 0 Balance 0 / 0 240 / 240 Weight last 48 hrs Weight 150.139 kg Weight 147.463 kg Weight 149.685 kg Physical Exam Const: COMMON NORMALS: patient oriented x3 HENMT: COMMON NORMALS: normocephalic and atraumatic HEAD & SCALP: normocephalic and atraumatic Chest: COMMONS NORMALS: normal inspection of the chest and normal palpation of entire chest wall CHEST: Yes Symmetrical chest wall rise Resp: COMMON NORMALS: normal respiratory effort, No retractions, No use of accessory muscles and clear to auscultation bilaterally EFFORT & INSPECTION: Yes symmetric chest movement AUSCULTATION: clear to auscultation bilaterally Cardio: COMMON NORMALS: regular rate, regular rhythm, S1 normal heart sound present, S2 normal heart sound present, No gallops present (Cardio), No murmurs present (Cardio), No rub (Cardio) and Peripheral pulses 2+ throughout RATE: regular rate RHYTHM: regular rhythm HEART SOUNDS: S1 normal heart sound present and S2 normal heart sound present PERIPHERAL PULSES: Peripheral pulses 2+ throughout GI: COMMON NORMALS: Normal to inspection, nondistended, normoactive bowel sounds present, Soft to palpation, non-tender, No hepatosplenomegaly present and no masses AUSCULTATION: Yes normoactive bowel sounds PALPATION: Yes Soft to palpation and Yes No hepatosplenomegaly present RECTAL EXAM: Yes deferred Extremity: COMMON NORMALS: no clubbing, cyanosis or edema and no pedal edema Neuro: COMMON NORMALS: patient oriented x3 Data : 09/28/21 02:17 09/28/21 02:17 A&P Assessment and plan (1) ESRD on dialysis: Status: Acute (2) Non-pressure chronic ulcer of other part of right foot with necrosis of muscle: Status: Chronic (3) Chronic respiratory failure with hypoxia and hypercapnia: Status: Acute (4) Diabetes: Status: Acute (5) COPD (chronic obstructive pulmonary disease): Status: Acute Plan Assessment: #Chronic respiratory failure with hypoxia and hypercapnia: Patient came in with worsening shortness of breath, confusion. CTA chest: No pulmonary embolism, dependent atelectasis at both lung bases,No pneumothorax. No pleural effusion, Ascites. AM ABG: pH 7.29 PCO2 61 PO2 71, FiO2 45% Continue duo nebs Solu-Medrol 60 IV daily Doxycycline p.o. Continue BiPAP #Heart failure with preserved ejection fraction: Currently compensated: Continue Bumex 2 mg p.o. daily #End stage renal disease on dialysis: Nephrology on board continue with routine hemodialysis #Elevated troponin: Chronically elevated troponin in the setting of, heart failure and end-stage renal disease: Continue aspirin statin #Hypertension: Currently blood pressure is well controlled well controlled we will continue with home antihypertensive medications #Diabetes: SSI, fingerstick glucose #COPD: #Morbid obesity with BMI of 40.0-44.9, adult #Obesity hypoventilation syndrome #CODE STATUS: full code #DVT prophylaxis; heparin Attestations Medical Necessity Statement*: Patient is still in hospital for management of chronic respiratory failure, need for routine hemodialysis. Anticipate discharge in the morning. Coding Level of Care Code Acute Occupational Nurse for [facility] Fwd Exam Detailed Diagnoses ESRD on dialysis N18.6; Z99.2 Non-pressure chronic ulcer of other part of right foot with necrosis of muscle L97.513 Chronic respiratory failure with hypoxia and hypercapnia J96.11; J96.12 Diabetes E11.9 COPD (chronic obstructive pulmonary disease) J44.9
--- NOTE | 2021-09-28 16:02 | PC.NURSE ---
Dressing change was done to chronic wound on left foot. Pt stated the wound clinic ordered wet to dry. Tolerated well.
[2021-09-28 17:31] LABS: Glucose Point of Care 238 mg/dL (70-110)
--- NOTE | 2021-09-28 20:10 | PC.NURSE ---
PT Eval Fall risk status discussed with patient. Patient states he has fallen at home recently due to ulcer on left foot and uncertain footing, in addition to experiencing a syncopal episode while receiving EMS care prior to hospital visit. High fall risk education provided to patient, understanding was verbalized. Patient then stated the wish to ambulate around the unit. No physical therapy evaluation completed, Dr. Sellers notified and order received for physical therapy to evaluate and treat. Order placed as indicated. Patient notified of physical therapy order.
[2021-09-28] MEDS: atorvastatin 40 mg Tablet 80 MG PO (20:40)
--- NOTE | 2021-09-28 21:00 | PC.NURSE ---
Sitting on side of bed Patient stated wish to sit on side of bed. All vital signs stable. Patient assisted to sitting position by one RN. All vital signs remained stable during transition, patient denied any shortness of breath or dizziness. Patient tolerated activity well. Education provided on high fall risk status and need to alert nurse if needed. Call light in reach. To monitor.
[2021-09-28 21:20] LABS: Glucose Point of Care 229 mg/dL (70-110)
[2021-09-29] VITALS (20 sets, daily range): BP systolic 148–171; BP diastolic 81–91; PULSE 75–85; RESP 12–27; TEMP 36.4–36.6; O2SAT 89–95; BMI 42.9
[2021-09-29] MEDS: acetaminophen 325 mg Tablet 650 MG PO (00:17)
[2021-09-29] MEDS: ipratropium-albuterol 3 mL Neb INHALATION ×2 (04:23→07:43)
[2021-09-29 05:30] LABS: Basophils % 0.1 %; Eosinophils % 0.1 %; Hematocrit 39.7 % (42.0-52.0); Hemoglobin 11.4 g/dL (11.7-16.6); Lymphocytes # 0.4 10^3/uL (0.8-4.8); Lymphocytes % 2.5 %; Mean Corpuscular HGB Conc 28.7 g/dL (30.0-36.0); Mean Corpuscular Hemoglobin 28.9 pg (28.0-34.0); Mean Corpuscular Volume 100.5 fl (80-94); Mean Platelet Volume 10.9 fL (7.4-10.4); Monocytes # 1.3 10^3/uL (0.2-0.9); Monocytes % 8.6 %; Neutrophils # 13.24 10^3/uL (1.8-7.7); Neutrophils % 87.8 %; Nucleated Red Blood Cells % 0 %; Platelet Count 214 10^3/cmm (130-400); Red Blood Count 3.95 10^6/uL (4.1-5.3); Red Cell Distribution Width 16.2 % (12.1-15.1); White Blood Count 15.1 10^3/uL (4.0-10.0)
[2021-09-29 05:49] LABS: Blood Urea Nitrogen 37 mg/dL (6-20); Calcium 8.4 mg/dL (8.5-10.5); Carbon Dioxide 26 mmol/L (22-29); Chloride 94 mmol/L (98-107); Glomerular Filtration Rate 12.9 mL/min (90-130); Glucose 196 mg/dL (65-115); Osmolality Calculated 290 mOsm/kg (285-295); Sodium 133 mmol/L (136-145)
[2021-09-29 05:57] LABS: Anion Gap 17.8 (5-19); Potassium 4.8 mmol/L (3.5-5.1)
[2021-09-29 07:05] LABS: Glucose Point of Care 179 mg/dL (70-110)
[2021-09-29] MEDS: doxycycline 100 mg Tablet PO (07:56)
[2021-09-29] MEDS: insulin lispro 100 unit/1 mL SUBCUT (07:56)
[2021-09-29] MEDS: aspirin 81 mg Chew Tablet PO (07:56)
[2021-09-29] MEDS: bumetanide 1 mg Tablet 2 MG PO (07:56)
[2021-09-29] MEDS: pantoprazole DR 40 mg Tablet PO (08:04)
[2021-09-29 08:14] LABS: Urine Appearance Cloudy (CLEAR); Urine Color Yellow (Yellow)
[2021-09-29 08:15] LABS: Bilirubin Urine 1+ (Negative); Blood Urine 3+ (Negative); Glucose Urine UA Trace (Normal); Ketones Urine 1+ (Negative); Leukocyte Esterase Urine 2+ (Negative); Nitrate Urine Positive (Negative); Protein Urine 3+ (Negative); Specific Gravity, Urine 1.025 (1.005-1.030); Urobilinogen Urine Norm (Negative); pH Urine 5 (5-7)
[2021-09-29 08:24] LABS: RBC Urine >100 /hpf (0-2); WBC Urine >100 /hpf (0-5)
[2021-09-29 08:25] LABS: Add Urine Culture? No; Amorphous Sediment Urine 3+ /hpf; Bacteria Urine 2+ /hpf; Mucus Urine TRACE /hpf; Other Casts Urine WAXY /lpf; Squamous Epithelial Cell Urine 40-55 /hpf (0-5)
--- NOTE | 2021-09-29 09:09 | PC.NURSE ---
DC instructions given, pt verbalizes understanding. PIV removed. Awaiting for ride home.
--- NOTE | 2021-09-29 09:41 | PC.NURSE ---
Pt taken to private vehicle via w/c. Tolerated well.
[2021-09-29 12:25] LABS: Glucose Point of Care 168 mg/dL (70-110)
--- NOTE | 2021-09-29 13:49 | PM.DCS ---
Discharge Providers Date of Admission: 09/27/21 22:48 Date of Discharge: September 29, 2021 Attending Provider at Admission: Bill Sellers DO Attending Provider at Discharge: Paul Freeman MD Primary Care Provider: Sulma Wetzel MD Diagnoses at Discharge Discharge Diagnosis (1) ESRD on dialysis: Status: Acute (2) Non-pressure chronic ulcer of other part of right foot with necrosis of muscle: Status: Chronic (3) Chronic respiratory failure with hypoxia and hypercapnia: Status: Acute (4) Diabetes: Status: Acute (5) COPD (chronic obstructive pulmonary disease): Status: Acute Reason for Visit Reason for Visit: RESP. DISTRESS Hospital Course Hospital Course 51 year old male with a past medical history of insulin-dependent type 2 diabetes mellitus, hypertension, heart failure with preserved ejection fraction, chronic respiratory failure on 2.5 L on BiPAP history of end-stage renal disease on dialysis Sunday, anxiety and depression, was admitted with chief complaint of dyspnea which started proximate 24 hours prior to hospitalization,He states his dyspnea was of sudden onset proximally 24 hours prior to hospitalization.? He admits to onset of nausea, cough which is nonproductive, wheeze, diarrhea.? He denies fever, rigors, vomiting, abdominal pain, myalgia, chest pain, peripheral edema. He was admitted for the management of Chronic respiratory failure with hypoxia and hypercapnia During his hospital stay CTA chest was done: No pulmonary embolism,?dependent atelectasis at both lung bases,No pneumothorax. No pleural effusion, Ascites. X-ray chest ABG was done. He was continued on conservative respiratory support measures, duo nebs BiPAP steroids doxycycline. He responded well to above conservative respiratory support measures at the time of discharge he denied any shortness of breath, he was at his baseline oxygen requirement of 2.5 L, used BiPAP at night.he was continued on routine hemodialysis, for his end-stage renal disease. For his chronically elevated troponin he was continued on aspirin and statin.Heart failure with preserved ejection fraction: Currently compensated: He was continued on p.o. Bumex. Patient responded well to the above medical management and is being discharged in stable condition to home. Physical Exam Const: COMMON NORMALS: patient oriented x3 HENMT: COMMON NORMALS: normocephalic, atraumatic, hearing grossly normal bilaterally and external ears normal HEAD & SCALP: normocephalic and atraumatic EXTERNAL EAR: Yes external ears normal Eye: COMMON NORMALS: no scleral icterus GENERAL EYE: appearance normal, both eyes and all related structures Chest: COMMONS NORMALS: normal inspection of the chest and normal palpation of entire chest wall CHEST: Yes Symmetrical chest wall rise Resp: COMMON NORMALS: normal respiratory effort, No retractions, No use of accessory muscles and clear to auscultation bilaterally EFFORT & INSPECTION: Yes symmetric chest movement AUSCULTATION: clear to auscultation bilaterally Cardio: COMMON NORMALS: regular rate, regular rhythm, S1 normal heart sound present, S2 normal heart sound present, No gallops present (Cardio), No murmurs present (Cardio), No rub (Cardio) and Peripheral pulses 2+ throughout RATE: regular rate RHYTHM: regular rhythm HEART SOUNDS: S1 normal heart sound present and S2 normal heart sound present PERIPHERAL PULSES: Peripheral pulses 2+ throughout GI: COMMON NORMALS: Normal to inspection, nondistended, normoactive bowel sounds present, Soft to palpation, non-tender, No hepatosplenomegaly present and no masses AUSCULTATION: Yes normoactive bowel sounds PALPATION: Yes Soft to palpation and Yes No hepatosplenomegaly present RECTAL EXAM: Yes deferred Extremity: COMMON NORMALS: no clubbing, cyanosis or edema and no pedal edema Neuro: COMMON NORMALS: patient oriented x3 Discharge Data Studies Completed and Pending Completed Studies During Hospitalization Category Date Time Status CT angio chest PE protcl [id number] Stat Cat Scan 09/27/21 20:16 Completed XR chest 1V portable [id number] Stat Exams 09/27/21 20:16 Completed Radiology Impressions Chest CTA 09/27/21 20:16 IMPRESSION: 1. No gross evidence of pulmonary embolism. 2. Ascites 3. Cardiomegaly 4. Anasarca Chest X-Ray 09/27/21 20:16 IMPRESSION: Stable exam, no acute findings. Laboratory Results WBC 15.1 10^3/uL (4.0-10.0) H 09/29/21 05:04 RBC 3.95 10^6/uL (4.1-5.3) L 09/29/21 05:04 Hgb 11.4 g/dL (11.7-16.6) L 09/29/21 05:04 Hct 39.7 % (42.0-52.0) L 09/29/21 05:04 MCV 100.5 fl (80-94) H 09/29/21 05:04 MCH 28.9 pg (28.0-34.0) 09/29/21 05:04 MCHC 28.7 g/dL (30.0-36.0) L 09/29/21 05:04 RDW 16.2 % (12.1-15.1) H 09/29/21 05:04 Plt Count 214 10^3/cmm (130-400) 09/29/21 05:04 MPV 10.9 fL (7.4-10.4) H 09/29/21 05:04 Neut % (Auto) 87.8 % 09/29/21 05:04 Lymph % (Auto) 2.5 % 09/29/21 05:04 [place] % (Auto) 8.6 % 09/29/21 05:04 Eos % (Auto) 0.1 % 09/29/21 05:04 Baso % (Auto) 0.1 % 09/29/21 05:04 Neut # (Auto) 13.24 10^3/uL (1.8-7.7) H 09/29/21 05:04 Lymph # (Auto) 0.4 10^3/uL (0.8-4.8) L 09/29/21 05:04 [place] # (Auto) 1.3 10^3/uL (0.2-0.9) H 09/29/21 05:04 Eos # (Auto) 0.0 10^3/uL (0.0-0.8) 09/29/21 05:04 Baso # (Auto) 0.0 10^3/uL (0.0-0.1) 09/29/21 05:04 Nucleated RBC % (auto) 0 % 09/29/21 05:04 Nucleated RBCs # 0.0 /100WBC 09/29/21 05:04 Specimen Type Arterial 09/28/21 04:17 Sample Site Radial, right 09/28/21 04:17 ABG pH 7.29 (7.35-7.45) L 09/28/21 04:17 ABG pCO2 61.3 mmHg (35-45) H* 09/28/21 04:17 ABG pO2 71.7 mmHg (80.0-100.0) L 09/28/21 04:17 ABG HCO3 29.1 mmol/L (22-26) H 09/28/21 04:17 ABG O2 Saturation 66.2 09/27/21 21:12 ABG Base Excess 1.3 mmol/L (-2.0-2.0) 09/28/21 04:17 Jesus Test Pos 09/28/21 04:17 A-a O2 Gradient 25.5 mmHg (5-10) H 09/27/21 21:12 Hematocrit 35.0 % (42-52) L 09/28/21 04:17 Hgb O2 Saturation 64.5 % (95-100) L 09/27/21 21:12 Carboxyhemoglobin 1.7 %THgb (0.4-20.1) 09/27/21 21:12 Methemoglobin 0.9 % (0.4-1.5) 09/27/21 21:12 Total Hemoglobin 10.7 g/dL (14-18) L 09/27/21 21:12 Sodium 138.0 mmol/L (131-143) 09/27/21 21:12 Potassium 4.8 mmol/L (3.5-5.0) 09/27/21 21:12 Glucose 137.0 mg/dL (70-115) H 09/27/21 21:12 Ionized Calcium 1.2 mmol/L (1.1-1.4) 09/27/21 21:12 O2 Delivery Device Bipap 09/28/21 04:17 FiO2 45.0 % 09/28/21 04:17 Oxygen Plant Operator ID Dane 09/28/21 04:17 Sodium 133 mmol/L (136-145) L 09/29/21 05:04 Potassium 4.8 mmol/L (3.5-5.1) 09/29/21 05:04 Chloride 94 mmol/L (98-107) L 09/29/21 05:04 Carbon Dioxide 26 mmol/L (22-29) 09/29/21 05:04 Anion Gap 17.8 (5-19) 09/29/21 05:04 BUN 37 mg/dL (6-20) H 09/29/21 05:04 Creatinine 4.8 mg/dL (0.7-1.2) H 09/29/21 05:04 GFR Calculation 12.9 mL/min (90-130) L 09/29/21 05:04 Glucose 196 mg/dL (65-115) H 09/29/21 05:04 POC Glucose 179 mg/dL (70-110) H 09/29/21 06:58 Calculated Osmolality 290 mOsm/kg (285-295) 09/29/21 05:04 Calcium 8.4 mg/dL (8.5-10.5) L 09/29/21 05:04 Phosphorus 5.1 mg/dL (2.5-4.5) H 09/28/21 02:17 Magnesium 2.3 mg/dL (1.7-2.3) 09/28/21 02:17 Iron 33 ug/dL (59-158) L 09/28/21 02:17 Iron Cancelled 09/28/21 02:17 TIBC 188 mcg/dl 09/28/21 02:17 TIBC Cancelled 09/28/21 02:17 % Saturation 17.5 % (20-50) L 09/28/21 02:17 % Saturation Cancelled 09/28/21 02:17 Unsat Iron Binding 155 ug/dL (112-347) 09/28/21 02:17 Unsat Iron Binding Cancelled 09/28/21 02:17 Ferritin 203 ng/mL (30-400) 09/28/21 02:17 Ferritin Cancelled 09/28/21 02:17 Total Bilirubin 0.5 mg/dL (0.15-1.2) 09/27/21 20:16 AST 24 U/L (0-40) 09/27/21 20:16 ALT 14 U/L (0-41) 09/27/21 20:16 Alkaline Phosphatase 123 IU/L (40-130) 09/27/21 20:16 Troponin T Baseline 410 ng/L (0-15) H* 09/27/21 20:16 Troponin T 120 Minute 408.4 ng/L (0-15) H 09/27/21 21:52 Delta Troponin T -1.6 ABS# (0-10) L 09/27/21 21:52 Troponin T Hi Sens 6Hr 327.0 ng/L (0-15) H 09/28/21 02:17 Troponin T Hi Sens 6Hr Delta -83.0 ng/L (0-12) L 09/28/21 02:17 NT-Pro-B Natriuret Pep > 50758 pg/mL (0-125) H 09/27/21 20:16 Total Protein 6.8 g/dL (6.6-8.7) 09/27/21 20:16 Albumin 3.7 g/dL (3.5-5.2) 09/27/21 20:16 Globulin 3.1 g/dL (1.3-4.6) 09/27/21 20:16 Vitamin B12 1295 pg/mL (232-1245) H 09/28/21 02:17 Vitamin B12 Cancelled 09/28/21 02:17 Folate > 20.0 ng/mL (4.5-32.2) 09/28/21 02:17 TSH 3.25 uIU/mL (0.27-4.20) 09/28/21 02:17 TSH Cancelled 09/28/21 02:17 Free T4 1.22 ng/dL (0.82-1.77) 09/28/21 02:17 Free T4 Cancelled 09/28/21 02:17 Urine Color Yellow (Yellow) 09/29/21 07:40 Urine Appearance Cloudy (CLEAR) 09/29/21 07:40 Urine pH 5 (5-7) 09/29/21 07:40 Ur Specific [place] 1.025 (1.005-1.030) 09/29/21 07:40 Urine Protein 3+ (Negative) H 09/29/21 07:40 Urine Glucose (UA) Trace (Normal) H 09/29/21 07:40 Urine Ketones 1+ (Negative) H 09/29/21 07:40 Urine Blood 3+ (Negative) H 09/29/21 07:40 Urine Nitrate Positive (Negative) H 09/29/21 07:40 Urine Bilirubin 1+ (Negative) H 09/29/21 07:40 Urine Urobilinogen Norm mg/dL (Negative) 09/29/21 07:40 Ur Leukocyte Esterase 2+ (Negative) H 09/29/21 07:40 Urine RBC >100 /hpf (0-2) H 09/29/21 07:40 Urine WBC >100 /hpf (0-5) H 09/29/21 07:40 Ur Squamous Epith Cells 40-55 /hpf (0-5) H 09/29/21 07:40 Amorphous Sediment 3+ /hpf 09/29/21 07:40 Urine Bacteria 2+ /hpf (NONE) H 09/29/21 07:40 Coarse Granular Casts 5-10 /lpf H 09/29/21 07:40 Other Casts Waxy /lpf 09/29/21 07:40 Urine Mucus Trace /hpf 09/29/21 07:40 SARS-CoV-2 Ag (Rapid) Negative (Negative) 09/27/21 20:30 Vitals Last Vital Signs Temp 97.5 F L 09/29/21 08:00 Pulse 80 09/29/21 08:00 Resp 19 H 09/29/21 08:00 BP 171/91 09/29/21 08:00 Pulse Ox 92 09/29/21 08:00 Discharge Plan Discharge Patient Disposition: Home Condition: Stable Prescriptions: Continued (DME) Wheel Chair See Rx Instructions .Route .MEDSUPPLY Qty: 1 0RF Rx Instructions: As directed HOME aspirin 81 mg Tablet,Delayed Release (Dr/Ec) 81 mg PO QAM 0RF isosorbide mononitrate 120 mg Tablet Extended Release 24 Hr 120 mg PO QAM 0RF sodium bicarbonate 650 mg tablet 650 mg PO DAILY 0RF sevelamer carbonate 800 mg tablet See Rx Instructions .ROUTE .COMPLEX 0RF Rx Instructions: 2 tabs po bid with meals venlafaxine 150 mg capsule,extended release 24hr 150 mg PO QAM 0RF diazepam 5 mg tablet 5 - 10 mg PO . DIRECTED 0RF ofloxacin 0.3 % drops 2 drp otic (ear) DAILY 0RF Rx Instructions: (left ear)Apply 2 drops to each ear after water exposure RenaPlex-D 800 mcg-12.5 mg -2,000 unit tablet 1 tab PO DAILY 0RF carvedilol 25 mg tablet 25 mg PO BID 0RF losartan 50 mg tablet 50 mg PO QAM 0RF atorvastatin 80 mg tablet 80 mg PO DAILY 0RF Lantus U-100 Insulin 100 unit/mL solution 40 unit SUBCUT QAM 0RF bumetanide 2 mg tablet 4 mg PO QAM 0RF trazodone 50 mg tablet 25 mg PO BEDTIME PRN (Reason: Sleep) 0RF clonazepam 0.5 mg tablet 0.5 mg PO BID 0RF acetaminophen 500 mg Tablet 500 - 1,000 mg PO Q6H PRN (Reason: Pain) 0RF lidocaine-prilocaine 2.5-2.5 % cream 1 applic topical . DIRECTED 0RF ropinirole 0.25 mg tablet 0.25 mg PO BEDTIME PRN (Reason: Restless Leg(S)) 0RF amlodipine 10 mg tablet 10 mg PO QAM 0RF insulin aspart U-100 [Novolog U-100 Insulin aspart] 100 unit/mL solution See Rx Instructions .ROUTE .COMPLEX 0RF Rx Instructions: sliding scale prn triamcinolone acetonide 0.1 % ointment 1 applic TOPICAL BID PRN (Reason: unknown) 0RF gabapentin 300 mg capsule 300 mg PO DAILY PRN (Reason: Pain) 0RF hydroxyzine pamoate 25 mg capsule 25 mg PO DAILY PRN (Reason: Itching) 0RF Rexulti 0.25 mg tablet 0.25 mg PO DAILY 0RF Lokelma 5 gram powder in packet See Rx Instructions .ROUTE .COMPLEX 0RF Rx Instructions: 1 packet (on ,) (non dialysis days) cefepime 1 gram recon soln 500 mg IM .after HD 42 Days Qty: 10 4RF clonidine HCl 0.2 mg Tablet 0.2 mg PO TID 0RF Discharge Orders: Discharge Order (Routine); Ordered 09/29/21 Ordered By: Paul Freeman Other Ambulatory Orders: DME: Wheelchair (Order) Location: None Selected Ordered By: Paul Freeman Referrals: Sulma Wetzel MD [Primary Care Provider] - 1 week (Cancelled appointment with Dr Wetzel scheduled for 09/29/2021. Will need to be seen within 3-4 days of Discharge for follow up appointment with Dr Wetzel. cancel appointment time as above. Only appointment availability for date as of at time of 10:00 am with WEN GARVIN ) Discharge Diet: Diabetic Discharge Activity: Resume usual activity Patient Instructions: Chronic Kidney Disease (DC), Dialysis Diet (DC), Foot Care for People with Diabetes (DC), Basic Carbohydrate Counting (DC), Meal Planning with Diabetes Exchanges (DC), Fluid Restriction (DC), End Stage Kidney Disease (DC), CHF Stoplight, COPD Stoplight, Opioid Safety Activity Restrictions/Additional Instructions: Mr. Velasco, it is extremely important that you adhere to diet recommendations and fluid restriction given to you by your [employer] Still Utility Operator. You continue to have repeat visits to Emergency Room and multiple readmissions to the hospital. It is important that you try to improve your overall health status for better quality of life going forward. Per Dialysis nurse it has been reviewed that you should limit fluid intake to 2,000ml or less. You need to weigh every am and if you increase in weight more than 2lbs in one day you should cut back on fluid intake. Please refrain from eating sugary candies etc. Please use sugar free options and follow diet recommendations to prevent further decline in your kidney function, Neuropathy (loss of feeling in lower limbs), decline in eyesight and other issues that is strongly affected by uncontrolled Diabetes. Please be sure to attend all appointments for follow up and schedule routine visits with eye doctor due to diabetes. Please check your feet every night before bed to ensure you have no open wounds that can lead to infection. Please be sure to wear the new Bipap mask that you should receive per dialysis nurse today 09/28/2021. Discharge Attestations Time Spent in Discharge Care*: less than 30 min Specific Discharge Activities: educating patient, educating and/or supporting family/caregiver, discussing with pcp/other providers, discussing with housing case manager/social workers/dc planners, documenting/other paperwork and evaluating patient/reviewing data Status at Discharge: Cognitive status at discharge: cognitively intact, Behavioral status at discharge: cooperative, Quality Metrics Clinical Quality Measures [ No reported AMI, CVA or VTE this stay] Coding Level of Care Code Acute Chg FW DC note Diagnoses ESRD on dialysis N18.6; Z99.2 Non-pressure chronic ulcer of other part of right foot with necrosis of muscle L97.513 Chronic respiratory failure with hypoxia and hypercapnia J96.11; J96.12 Diabetes E11.9 COPD (chronic obstructive pulmonary disease) J44.9
== END 2021-09-29 09:41 | disposition home or self-care (01) | DRG 190 ==
LOC: ER 21:22 → ICU 22:57
PROVIDERS: Admitting Provider Internal Medicine; Emergency Provider Emergency Medicine; PCP Internal Medicine; Visit Provider Internal Medicine
DX: J44.1 Chronic obstructive pulmonary disease with (acute) exacerbation (principal); N18.6 End stage renal disease; I13.2 Hypertensive heart and chronic kidney disease with heart failure and with stage 5 chronic kidney disease, or end stage renal disease; I50.32 Chronic diastolic (congestive) heart failure; J96.12 Chronic respiratory failure with hypercapnia; J96.11 Chronic respiratory failure with hypoxia; E66.2 Morbid (severe) obesity with alveolar hypoventilation; Z68.41 Body mass index [BMI] 40.0-44.9, adult; K76.6 Portal hypertension; E11.22 Type 2 diabetes mellitus with diabetic chronic kidney disease; Z99.2 Dependence on renal dialysis; Z91.15 Patient's noncompliance with renal dialysis; E11.51 Type 2 diabetes mellitus with diabetic peripheral angiopathy without gangrene; E11.42 Type 2 diabetes mellitus with diabetic polyneuropathy; E11.621 Type 2 diabetes mellitus with foot ulcer; L97.529 Non-pressure chronic ulcer of other part of left foot with unspecified severity; I25.2 Old myocardial infarction; Z85.528 Personal history of other malignant neoplasm of kidney; Z87.01 Personal history of pneumonia (recurrent); Z90.5 Acquired absence of kidney; Z99.81 Dependence on supplemental oxygen; Z99.89 Dependence on other enabling machines and devices; I07.1 Rheumatic tricuspid insufficiency; Z79.891 Long term (current) use of opiate analgesic; Z79.4 Long term (current) use of insulin; Z79.82 Long term (current) use of aspirin; E78.5 Hyperlipidemia, unspecified; D63.1 Anemia in chronic kidney disease; E21.3 Hyperparathyroidism, unspecified; F41.8 Other specified anxiety disorders; G25.81 Restless legs syndrome; R91.8 Other nonspecific abnormal finding of lung field
CPT/HCPCS: 36415; 36416; 36600; 71045; 71275; 80048; 80051; 80053; 81001; 82330; 82607; 82728; 82746; 82803; 82805; 82962; 83540; 83550; 83735; 83880; 84100; 84439; 84443; 84484; 85025; 87426; 93005; 94640; 94660; 96372; 96374; 96375; 99291; J1644; J1815; J1940; J2930; Q3014; Q9967

== ENCOUNTER 2021-10-06 13:11 | Outpatient (CLI) | payer MEDICARE, MEDICAID, SELFPAY | END 2021-10-06 13:12 | disposition home or self-care (01) | LOC: WOUND 13:13 | PROVIDERS: PCP Internal Medicine; Visit Provider Nurse Practitioner Family | DX: E11.621 Type 2 diabetes mellitus with foot ulcer (principal); I96 Gangrene, not elsewhere classified; L97.523 Non-pressure chronic ulcer of other part of left foot with necrosis of muscle | CPT/HCPCS: 11042 ==

== ENCOUNTER 2021-10-13 10:41 | Outpatient (CLI) | payer MEDICARE, MEDICAID, SELFPAY | END 2021-10-13 10:42 | disposition home or self-care (01) | LOC: WOUND 10:42 | PROVIDERS: PCP Internal Medicine; Visit Provider Nurse Practitioner Family | DX: E11.621 Type 2 diabetes mellitus with foot ulcer (principal); L97.523 Non-pressure chronic ulcer of other part of left foot with necrosis of muscle; L89.312 Pressure ulcer of right buttock, stage 2 | CPT/HCPCS: 11042; A6250 ==

== ENCOUNTER → 2021-10-20 10:08 | Outpatient (BNVA) | payer MEDICARE, MEDICAID, SELFPAY | PROVIDERS: PCP Internal Medicine; Visit Provider Nurse Practitioner Family | DX: E11.621 Type 2 diabetes mellitus with foot ulcer (principal); I96 Gangrene, not elsewhere classified; L97.523 Non-pressure chronic ulcer of other part of left foot with necrosis of muscle; L89.312 Pressure ulcer of right buttock, stage 2; L97.812 Non-pressure chronic ulcer of other part of right lower leg with fat layer exposed | CPT/HCPCS: 11042; A6250 ==

== ENCOUNTER → 2021-10-27 13:07 | Outpatient (BNVA) | payer MEDICARE, MEDICAID, SELFPAY | PROVIDERS: PCP Internal Medicine; Visit Provider Nurse Practitioner Family | DX: E11.621 Type 2 diabetes mellitus with foot ulcer (principal); L97.523 Non-pressure chronic ulcer of other part of left foot with necrosis of muscle; I96 Gangrene, not elsewhere classified; L89.312 Pressure ulcer of right buttock, stage 2; E11.622 Type 2 diabetes mellitus with other skin ulcer; L97.812 Non-pressure chronic ulcer of other part of right lower leg with fat layer exposed | CPT/HCPCS: 11042; 11045 ==

== ENCOUNTER 2021-11-04 07:27 | Outpatient (CLI) | payer MEDICARE, MEDICAID, SELFPAY ==
--- NOTE | 2021-11-04 07:37 | CT_ITS ---
WS: [id number] CT ANGIOGRAPHY OF THE ABDOMINAL AORTA WITH RUNOFF TO THE ANKLES HISTORY: LEFT FOOT ULCER TECHNIQUE: Arterial injection is performed during imaging to evaluate the aorta and runoff vessels to the ankles. MIP and volume rendering imaging has also been performed. All images are reviewed. All C T scans at [facility] use at least one of these dose optimization techniques: automated exposu re control; mA and/or kV adjustment per patient size (includes targeted exams where dose is matched t o clinical indication); or iterative reconstruction. Contrast: Visipaque 320; 95 mL IV. DLP: 2042.35 mGy.cm COMPARISON: None available. Quality of examination is diffusely suboptimal. There is extensive soft tissue anasarca. There is asc ites within the abdomen. Kidneys are small caliber. There is extensive motion artifact and breathing artifact. Abdominal aorta: Beginning at the level of the mesenteric arteries the caliber of the aorta is normal . There are a few scattered plaques. The opacification and enhancement of the SMA and celiac axis are normal proximally. RIGHT lower extremity to system: The opacification beginning in the RIGHT common iliac artery becomes very limited. There is heavy calcification which is circumferential beginning in the proximal femora l artery through the popliteal artery and involving the 3 vessel runoff to the ankles. With this amou nt of calcification visualization of the opacification with contrast in the lumen is not possible. LEFT lower extremity arterial system: Limited opacification beginning in the LEFT common iliac artery . Internal iliac is not identified and may be occluded. Proximal common femoral artery is intact. The superficial femoral artery and deep profunda are heavily calcified. The lumen is difficult to visual ize due to the heavy calcification. No aneurysm. Contiguous calcification continues into the poplitea l artery and three-vessel runoff to the ankle. The lumen is difficult to visualize due to extensive w all calcification. Extensive soft tissue anasarca is greater involving the LEFT lower extremity. Soft tissue ulceration at the LEFT foot is noted along the lateral foot at the level of the metatarsals. There are numerous indeterminate mesenteric and retroperitoneal lymph nodes were treated could very w ell be reactive. Larger lymph nodes at the inguinal and obturator regions. Obturator lymph node on th e RIGHT measures 2.3 cm. Largest inguinal lymph node also on the RIGHT measures 1.[address]/CT angio [facility] [id number] IMPRESSION: 1. Quality of this examination is significantly limited by multiple factors in cluding diffuse severe anasarca, extensive atherosclerosis throughout the arter ies of the lower extremities, motion and poor bolus injection. 2. Dense circumferential calcification beginning in the superficial femoral ar teries through the ankles obscures the lumen of the arteries therefore patency cannot be adequately and accurately determined. 3. Mesenteric, retroperitoneal and pelvic lymph nodes. These may be reactive l ymph nodes. This study was not protocoled to evaluate the visceral organs. 4. Small amount of ascites.
[2021-11-04] MEDS: iodixanol 320 mg/mL 100mL Btl IV (08:37)
== END 2021-11-04 07:28 | disposition home or self-care (01) ==
LOC: RAD 07:30
PROVIDERS: PCP Internal Medicine; Visit Provider Internal Medicine
DX: L97.529 Non-pressure chronic ulcer of other part of left foot with unspecified severity (principal); R18.8 Other ascites
CPT/HCPCS: 73706

== ENCOUNTER 2021-11-08 12:19 | Inpatient (IN) | payer MEDICARE, MEDICAID, SELFPAY ==
--- NOTE | 2021-11-08 13:14 | P.HP_ITS ---
Providers/Chief Complaint Admitting Physician: Darren Vela MD Primary Care Provider: Sulma Wetzel MD Chief Complaint: Cellulitis fluid with foot ulcer History of Present Illness Akil Velasco is a 51 year old male who presents as a direct admit for worsening left foot appearance. Patient reports for the last several weeks he has been struggling with diabetic foot ulcer of his left foot, that initially presented as blistering affecting the lateral side of his great toe, plantar surface of his foot, and fourth and fifth toes. They have been very macerated, and d raining constantly. He reports he had been seeing wound clinic, last visit recorded there October 20 where some debridement had occurred and he was getting local wound care. He also relates that recently completed 6 weeks of daptomycin following dialysis, although on his last discharge summary he was discharged on cefepime for Pseudomonas growing from his left foot. His primary care provider alerts me he also had a recent culture from his foot showing Enterococcus. There have been concerns regarding his integrity of blood vessels to the foot as well. ADAN was technically normal although vessels were not compressible. CTA of the lower extremity just demonstrated heavily calcified vessels. Patient reports he cannot feel the foot secondary to his severe neuropathy. He has not had any fevers at home. Drainage, as above had been significant. Review of Systems General: Denies: 10 or more systems reviewed and unremarkable except in HPI and below Const: Denies: fever(s) or chills Eyes: Denies: change in vision ENMT: Denies: throat pain Card: Denies: chest pain Resp: Denies: dyspnea GI: Denies: abdominal pain : Denies: flank pain Musc: Denies: neck pain Skin/Breast: Denies: rash Neuro: Denies: headache(s) Psych: Denies: anxiety or depression Endo: Denies: polyuria Ramy/Lymph: Denies: easy bruising All/Imm: Denies: urticaria Medications/Allergies Home Medications Medication Instructions Recorded Confirmed Last Taken Type aspirin 81 mg tablet,delayed 81 mg PO QAM 10/04/20 09/28/21 09/06/21 History release isosorbide mononitrate 120 mg 120 mg PO QAM 10/04/20 09/28/21 09/06/21 History tablet,extended release 24 hr sevelamer carbonate 800 mg tablet See Rx Instructions .ROUTE .COMPLEX 11/11/20 09/28/21 09/06/21 History sodium bicarbonate 650 mg tablet 650 mg PO DAILY 11/11/20 09/28/21 09/06/21 History carvedilol 25 mg tablet 25 mg PO BID 04/25/21 09/28/21 09/06/21 History vit B,C-folic ac 800 mcg-zinc 12.5 1 tab PO DAILY 04/25/21 09/28/21 09/06/21 History mg-selen-D3 2,000 unit-vit E tablet (RenaPlex-D) Wheel Chair #1 ea 08/18/21 09/28/21 Unknown Rx acetaminophen 500 mg tablet 500 - 1,000 mg PO Q6H PRN 08/22/21 09/28/21 Unknown History amlodipine 10 mg tablet 10 mg PO QAM 08/22/21 09/28/21 09/06/21 History atorvastatin 80 mg tablet 80 mg PO DAILY 08/22/21 09/28/21 09/06/21 History brexpiprazole 0.25 mg tablet 0.25 mg PO DAILY 08/22/21 09/28/21 09/06/21 History (Rexulti) bumetanide 2 mg tablet 4 mg PO QAM 08/22/21 09/28/21 09/06/21 History clonazepam 0.5 mg tablet 0.5 mg PO BID 08/22/21 09/28/21 09/06/21 History gabapentin 300 mg capsule 300 mg PO DAILY PRN 08/22/21 09/28/21 09/06/21 History hydroxyzine pamoate 25 mg capsule 25 mg PO DAILY PRN 08/22/21 09/28/21 Unknown History insulin aspart U-100 100 unit/mL See Rx Instructions .ROUTE .COMPLEX 08/22/21 09/28/21 Unknown History subcutaneous solution (Novolog U-100 Insulin aspart) insulin glargine 100 unit/mL 40 unit SUBCUT QAM 08/22/21 09/28/21 09/06/21 History subcutaneous solution (Lantus U-100 Insulin) lidocaine-prilocaine 2.5 %-2.5 % 1 applic TOPICAL . DIRECTED 08/22/21 09/28/21 Unknown History topical cream losartan 50 mg tablet 50 mg PO QAM 08/22/21 09/28/21 09/06/21 History ropinirole 0.25 mg tablet 0.25 mg PO BEDTIME PRN 08/22/21 09/28/21 09/06/21 History sodium zirconium cyclosilicate 5 See Rx Instructions .ROUTE .COMPLEX 08/22/21 09/28/21 09/06/21 History gram oral powder packet (Lokelma) trazodone 50 mg tablet 25 mg PO BEDTIME PRN 08/22/21 09/28/21 Unknown History triamcinolone acetonide 0.1 % 1 applic TOPICAL BID PRN 08/22/21 09/28/21 Unknown History topical ointment cefepime 1 gram solution for 500 mg IM .after HD 42 Days #10 ea 08/26/21 09/28/21 Unknown Rx injection venlafaxine 150 mg 150 mg PO QAM 09/07/21 09/28/21 09/06/21 History capsule,extended release 24 hr clonidine HCl 0.2 mg tablet 0.2 mg PO TID 09/12/21 09/28/21 Unknown History diazepam 5 mg tablet 5 - 10 mg PO . DIRECTED 09/28/21 09/28/21 Unknown History ofloxacin 0.3 % eye drops 2 drp OTIC (EAR) DAILY 09/28/21 09/28/21 Unknown History Allergies Allergy/AdvReac Type Severity Reaction Status Date / Time vancomycin Allergy Unknown Rash Verified 09/12/21 09:39 linezolid [From Zyvox] Allergy tendonitis Verified 09/12/21 09:39 ciprofloxacin [From Cipro] AdvReac Severe Tendonitis Verified 09/12/21 09:39 PFSH Acute PFSH: Medical History (Updated 11/08/21 @ 14:44 by Darren Vela MD) Acute and chronic respiratory failure with hypercapnia Anemia BMI 50.0-59.9, adult Cardiac arrest (~07/2020) when had covid CHF (congestive heart failure), NYHA class III Chronic respiratory failure with hypoxia and hypercapnia Chronic venous insufficiency COPD (chronic obstructive pulmonary disease) COPD (chronic obstructive pulmonary disease) Diabetes Diabetic foot ulcers Diabetic ulcer of left foot ESRD (end stage renal disease) on dialysis ESRD on dialysis First degree heart block Fracture of fifth metatarsal bone of left foot Fracture of fourth metatarsal bone of left foot Fracture, thoracic vertebra T7-T8 History of renal cell carcinoma Hypertension Lung nodule Morbid obesity with BMI of 40.0-44.9, adult Neuropathy Non-pressure chronic ulcer of other 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 No recurrence for long-term follow-up with some suspicion on CT scan April 2020. Restrictive lung disease Type 2 diabetes mellitus with diabetic polyneuropathy Urinary retention Surgical History H/O partial nephrectomy bilateral H/O wisdom tooth extraction History of cataract surgery Hx of lymph node excision Family History Father , at age 65 Diabetes Cancer Metastatic prostate cancer to liver Mother , at age 72 Diabetes Grandfather Diabetes Cancer Other Anemia Hyperlipidemia Social History Smoking and tobacco status: never smoked Second hand smoke exposure: Yes Smoking risk assessment/counseling performed?: Yes Alcohol intake: current Alcohol intake frequency: holidays/special occasions only Lives independently: Yes Household members: spouse Housing: House Marital status: service: No Current occupational status: retired Pets and animals: Yes History of recent travel: No Current gender identity: Male Physical Exam Narrative: General exam is white male, no apparent distress Neck is supple no lymphadenopathy thyromegaly Cardiovascular regular rate and rhythm without murmur, no S3 or S4 Lungs clear no wheezing or crackles Abdomen is soft. Positive bowel sounds. Slightly distended. No obvious organomegaly. exams deferred Extremities no cyanosis clubbing. Lower extr . 1+ edema, left greater than right. AV fistula with thrill and bruit is noted left upper extremity. Left lower extremity with plantar surface, lateral, diabetic foot ulcer without drainage. Third fourth and fifth toes show some maceration and darkening at the distal tips worse towards the fifth toe. Some drainage is present. Degloved appearance from where patient reports was a blister noted laterally on the great toe, affecting the lower part of the foot at the base of the toes. Cap refill somewhat delayed in his great toe. However, the foot is relatively warm. Pulses are difficult to feel. Skin see findings above Neuro: No focal deficits Data : 11/08/21 13:42 11/08/21 13:42 Other Labs: Sedimentation rate is 64 CRP elevated at 39.2 Blood cultures have been obtained A&P Assessment and plan (1) Diabetic foot ulcer: Unimproving ulceration of the third fourth and fifth toes on the left foot, and chronic ulceration on the plantar surface. Recently completed daptomycin, at least 4 weeks, following dialysis as arranged by Dr. Smith. A wound culture was obtained from primary care provider currently growing Enterococcus. This would certainly have been covered by daptomycin the patient was on recently, and it is unknown if this organism is causing any kind of deep infection or osteomyelitis. At this point, a CT scan with contrast has been ordered to see if there is any evidence of fluid collection, air, or osteomyelitis. Consultation with wound care/vascular to determine if this patient needs a surgical approach, or should be managed with wound care alone. There have been concerns of vascular compromise as well. On exam today his foot is warm, and cap refill is less than 2 seconds. Recent CTA lower extremity is uninterpretable as all vessels are calcified. ADAN in the past demonstrated normal readings but vessels were not compressible. Will allow vascular surgery to determine if any further studies are needed, and if so could ask interventional cardiology for angiogram. Considering recent prolonged treatment with daptomycin, and previous to this IV antibiotics covering Pseudomonas in the form of cefepime, will hold off on starting antibiotics in case CT can delineate if cultures would be useful in guiding treatment. Currently he is afebrile, and has a normal white blood cell count. Status: Acute (2) ESRD (end stage renal disease) on dialysis: Consultation with nephrology for hemodialysis Status: Acute (3) Diabetes: Sliding scale insulin, mild Status: Acute Plan Multiple other medical problems as outlined in past medical history Full code Heparin for DVT prophylaxis Attestations Medical Necessity Statement*: Will need greater than 2 midnight stay for evaluation, treatment of diabetic foot ulcer in this patient with multiple recent prolonged antibiotics, worsening wound on the foot, high risk for amputation. 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
--- NOTE | 2021-11-08 13:33 | CTR_ITS ---
PROCEDURE INFORMATION: Exam: CT Left Lower Extremity With Contrast, Foot Exam date and time: 11/08/2021 9:18 PM Age: 51 years old Clinical indication: Cellulitis; Toes; Left; Patient HX: Diabetic ulcers to 4th and 5th digits. ; Additional info: Possible osteomyelitis, ulcers 4th and 5th toes as well as p TECHNIQUE: Imaging protocol: CT of the Left lower extremity with intravenous contrast was performed. Exam focused on the foot. Radiation optimization: All CT scans at this facility use at least one of these dose optimization techniques: automated exposure control; mA and/or kV adjustment per patient size (includes targeted exams where dose is matched to clinical indication); or iterative reconstruction. Contrast material: OMNI 300; Contrast volume: 95 ml; Contrast route: INTRAVENOUS (IV); COMPARISON: [place] [id number] 11/04/2021 8:50 AM RADIATION DOSE METRICS: Total DLP (mGy-cm): 235.01 FINDINGS: Bones/joints: Degenerative changes and erosions at the bases of the 3rd through 5th metatarsals with fragmentation of base of the 5th metatarsal consistent with probable chronic osteomyelitis. Soft tissues: There is inflammatory stranding and edema throughout the soft tissues of the foot and ankle. No focal abscess. There is spurring on the Achilles aspect of the calcaneus. There is an open soft tissue ulcer underneath the base the [address]. [address]/CT foot LT w con [id number] IMPRESSION: Ulcer in the soft tissues below the base of the 5th metatarsal with chronic osteomyelitis in the bases of the 3rd through 5th metatarsals. Diffuse cellulitis throughout the foot and ankle.
[2021-11-08 14:09] LABS: Basophils # 0.1 10^3/uL (0.0-0.1); Basophils % 0.9 %; Eosinophils # 0.3 10^3/uL (0.0-0.8); Eosinophils % 6.4 %; Hematocrit 33.9 % (42.0-52.0); Hemoglobin 10.4 g/dL (11.7-16.6); Lymphocytes # 0.5 10^3/uL (0.8-4.8); Lymphocytes % 9.9 %; Mean Corpuscular HGB Conc 30.7 g/dL (30.0-36.0); Mean Corpuscular Hemoglobin 28.7 pg (28.0-34.0); Mean Corpuscular Volume 93.6 fl (80-94); Mean Platelet Volume 9.9 fL (7.4-10.4); Monocytes # 0.8 10^3/uL (0.2-0.9); Monocytes % 15.5 %; Neutrophils # 3.59 10^3/uL (1.8-7.7); Neutrophils % 67.1 %; Nucleated Red Blood Cells % 0 %; Platelet Count 179 10^3/cmm (130-400); Red Blood Count 3.62 10^6/uL (4.1-5.3); Red Cell Distribution Width 16.5 % (12.1-15.1); White Blood Count 5.4 10^3/uL (4.0-10.0)
[2021-11-08 14:31] LABS: Alanine Aminotransferase 13 U/L (0-41); Albumin Level 4.1 g/dL (3.5-5.2); Alkaline Phosphatase 167 IU/L (40-130); Anion Gap 17.7 (5-19); Aspartate Amino Transferase 22 U/L (0-40); Blood Urea Nitrogen 34 mg/dL (6-20); C Reactive Protein 39.2 mg/L (0.0-4.9); Calcium 9.5 mg/dL (8.5-10.5); Carbon Dioxide 27 mmol/L (22-29); Chloride 99 mmol/L (98-107); Globulin 3.3 g/dL (1.3-4.6); Glomerular Filtration Rate 15.9 mL/min (90-130); Glucose 118 mg/dL (65-115); Osmolality Calculated 297 mOsm/kg (285-295); Potassium 4.7 mmol/L (3.5-5.1); Sodium 139 mmol/L (136-145); Total Bilirubin 0.7 mg/dL (0.15-1.2); Total Protein 7.4 g/dL (6.6-8.7)
[2021-11-08 14:38] LABS: Erythrocyte Sedimentation Rate 64 mm/hr (0-10)
--- NOTE | 2021-11-08 15:11 | PM.CONSULT ---
Providers/Reason For Consult Consulting Physician/Specialty*: Nephrology Reason for Consult*: Eval for ESRD mgmt Attending Physician: Darren Vela MD Primary Care Provider: Sulma Wetzel MD History of Present Illness History of Present Illness Mr. Velasco presents to the hospital with worsening left foot discomfort, blistering. He has been receiving wound care for this and antibiotics. CT scan is requested. He had dialysis yesterday, this was a 6-hour session with 8 L of ultrafiltration. He feels worn out with some cramping. Hemodynamics remained stable. Minimal extremity edema. No other new acute issues. Access working well. Review of Systems Narrative: ROS 12 point review of systems completed per HPI and subjective assessment, this includes Constitutional: No weakness, fatigue Respiratory: No SOB on exertion, comfortable at rest CardioVasc: No chest pain, palpitations Gastrointestinal: No nausea, no vomiting Neurological: No seizures, no AMS Derm: No new rashes, lesions or wounds Immunological: No seasonal and no food allergies Medications/Allergies Home Medications Medication Instructions Recorded Confirmed Last Taken Type aspirin 81 mg tablet,delayed 81 mg PO QAM 10/04/20 09/28/21 09/06/21 History release isosorbide mononitrate 120 mg 120 mg PO QAM 10/04/20 09/28/21 09/06/21 History tablet,extended release 24 hr sevelamer carbonate 800 mg tablet See Rx Instructions .ROUTE .COMPLEX 11/11/20 09/28/21 09/06/21 History sodium bicarbonate 650 mg tablet 650 mg PO DAILY 11/11/20 09/28/21 09/06/21 History carvedilol 25 mg tablet 25 mg PO BID 04/25/21 09/28/21 09/06/21 History vit B,C-folic ac 800 mcg-zinc 12.5 1 tab PO DAILY 04/25/21 09/28/21 09/06/21 History mg-selen-D3 2,000 unit-vit E tablet (RenaPlex-D) Wheel Chair #1 ea 08/18/21 09/28/21 Unknown Rx acetaminophen 500 mg tablet 500 - 1,000 mg PO Q6H PRN 08/22/21 09/28/21 Unknown History amlodipine 10 mg tablet 10 mg PO QAM 08/22/21 09/28/21 09/06/21 History atorvastatin 80 mg tablet 80 mg PO DAILY 08/22/21 09/28/21 09/06/21 History brexpiprazole 0.25 mg tablet 0.25 mg PO DAILY 08/22/21 09/28/21 09/06/21 History (Rexulti) bumetanide 2 mg tablet 4 mg PO QAM 08/22/21 09/28/21 09/06/21 History clonazepam 0.5 mg tablet 0.5 mg PO BID 08/22/21 09/28/21 09/06/21 History gabapentin 300 mg capsule 300 mg PO DAILY PRN 08/22/21 09/28/21 09/06/21 History hydroxyzine pamoate 25 mg capsule 25 mg PO DAILY PRN 08/22/21 09/28/21 Unknown History insulin aspart U-100 100 unit/mL See Rx Instructions .ROUTE .COMPLEX 08/22/21 09/28/21 Unknown History subcutaneous solution (Novolog U-100 Insulin aspart) insulin glargine 100 unit/mL 40 unit SUBCUT QAM 08/22/21 09/28/21 09/06/21 History subcutaneous solution (Lantus U-100 Insulin) lidocaine-prilocaine 2.5 %-2.5 % 1 applic TOPICAL . DIRECTED 08/22/21 09/28/21 Unknown History topical cream losartan 50 mg tablet 50 mg PO QAM 08/22/21 09/28/21 09/06/21 History ropinirole 0.25 mg tablet 0.25 mg PO BEDTIME PRN 08/22/21 09/28/21 09/06/21 History sodium zirconium cyclosilicate 5 See Rx Instructions .ROUTE .COMPLEX 08/22/21 09/28/21 09/06/21 History gram oral powder packet (Lokelma) trazodone 50 mg tablet 25 mg PO BEDTIME PRN 08/22/21 09/28/21 Unknown History triamcinolone acetonide 0.1 % 1 applic TOPICAL BID PRN 08/22/21 09/28/21 Unknown History topical ointment cefepime 1 gram solution for 500 mg IM .after HD 42 Days #10 ea 08/26/21 09/28/21 Unknown Rx injection venlafaxine 150 mg 150 mg PO QAM 09/07/21 09/28/21 09/06/21 History capsule,extended release 24 hr clonidine HCl 0.2 mg tablet 0.2 mg PO TID 09/12/21 09/28/21 Unknown History diazepam 5 mg tablet 5 - 10 mg PO . DIRECTED 09/28/21 09/28/21 Unknown History ofloxacin 0.3 % eye drops 2 drp OTIC (EAR) DAILY 09/28/21 09/28/21 Unknown History multivitamin 1 tab PO DAILY 11/08/21 11/08/21 Unknown History Allergies Allergy/AdvReac Type Severity Reaction Status Date / Time vancomycin Allergy Unknown Rash Verified 09/12/21 09:39 linezolid [From Zyvox] Allergy tendonitis Verified 09/12/21 09:39 ciprofloxacin [From Cipro] AdvReac Severe Tendonitis Verified 09/12/21 09:39 PFSH Acute PFSH: Medical History (Updated 11/08/21 @ 14:44 by Darren Vela MD) Acute and chronic respiratory failure with hypercapnia Anemia BMI 50.0-59.9, adult Cardiac arrest (~07/2020) when had covid CHF (congestive heart failure), NYHA class III Chronic respiratory failure with hypoxia and hypercapnia Chronic venous insufficiency COPD (chronic obstructive pulmonary disease) COPD (chronic obstructive pulmonary disease) Diabetes Diabetic foot ulcers Diabetic ulcer of left foot ESRD (end stage renal disease) on dialysis ESRD on dialysis First degree heart block Fracture of fifth metatarsal bone of left foot Fracture of fourth metatarsal bone of left foot Fracture, thoracic vertebra T7-T8 History of renal cell carcinoma Hypertension Lung nodule Morbid obesity with BMI of 40.0-44.9, adult Neuropathy Non-pressure chronic ulcer of other 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 No recurrence for long-term follow-up with some suspicion on CT scan April 2020. Restrictive lung disease Type 2 diabetes mellitus with diabetic polyneuropathy Urinary retention Surgical History H/O partial nephrectomy bilateral H/O wisdom tooth extraction History of cataract surgery Hx of lymph node excision Family History Father , at age 65 Diabetes Cancer Metastatic prostate cancer to liver Mother , at age 72 Diabetes Grandfather Diabetes Cancer Other Anemia Hyperlipidemia Social History Smoking and tobacco status: never smoked Second hand smoke exposure: Yes Smoking risk assessment/counseling performed?: Yes Alcohol intake: current Alcohol intake frequency: holidays/special occasions only Lives independently: Yes Household members: spouse Housing: House Marital status: service: No Current occupational status: retired Pets and animals: Yes History of recent travel: No Current gender identity: Male Physical Exam Narrative: Constitutional: Awake, comfortable HEENT: Wet mucosa, no jvp, non icteric Lungs: Bilaterally clear without discernible wheeze, rales in all lung zones CVS: S1 S2, no murmurs Abdo: Soft, BS ok Ext 4: Minimal edema, peripheral perfusion with no cyanosis Neurological: Grossly non-focal Data : 11/08/21 13:42 11/08/21 13:42 Micro: Microbiology 11/08/21 13:42 Blood Culture - Preliminary Blood SPECIMEN COLLECTED 11/08/21 13:46 Blood Culture - Preliminary Blood SPECIMEN COLLECTED A&P Assessment and plan (1) ESRD (end stage renal disease) on dialysis: 1. ESRD Plan for dialysis tomorrow, 2K bath, ultrafiltration 3-4 L as tolerated Continue Sunday, Sunday and Sunday schedule Dose medication for GFR less than 15 on dialysis 2. Left foot wounds Management per Dr. Vela, CTA of the abdominal aorta with runoff from a few days ago is appreciated. Further imaging of the foot is pending. Currently on IV daptomycin with dialysis. Wound care etc. 3. Hemodynamics Blood pressure and pulse is currently stable 4. Chronic ESRD issues To be handled as an outpatient as part of standard monthly management. Continue home medication including Renvela. > 25 minutes spent in evaluation management of case with greater than 50% of time in [id number] counseling. 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
[2021-11-08] MEDS: oxyCODONE 5 mg IR Tab/Cap PO (15:36)
[2021-11-08] MEDS: heparin 5,000 unit/mL INJ 1 mL 5000 UNIT SUBCUT (15:37)
[2021-11-08 16:00] VITALS: BP 162/80; PULSE 74; RESP 18; TEMP 36.9; O2SAT 91
[2021-11-08 16:49] VITALS: PULSE 74; O2SAT 91
[2021-11-08 17:36] LABS: Glucose Point of Care 114 mg/dL (70-110)
--- NOTE | 2021-11-08 18:23 | USCV_ITS ---
LE Arterial Duplex BILATERAL Akil Velasco Age: 51 Gender: M : 1970 Exam Date: 11/08/2021 22:20 Ordering Phys: Matt Moreno MD ([email or web address] [place] Technologist: Demetrius Rodriguez [place] [facility] [place] Indication: non-healing LE wounds Risk Factors: Previous Vascular Surgery: RIGHT LEFT BP: 184.0 / 97.00 BP: 175.0/ 81.00 0 0 Waveform Velocity (cm/s) Velocity (cm/s) Waveform 149.3 Iliac Prox 118.1 158.3 Iliac Mid 133.6 142.1 Iliac Distal 141.4 127.7 BUNDLING MACHINE OPERATOR 116.5 SFA Prox 107.9 119.6 181.7 SFA Mid 121.2 198.2 SFA Dist 68.4 104.8 POP 209.1 53.2 CONTACT CENTER AGENT 112.6 35.3 DPA 84.4 1.2 ADAN 1.2 FINDINGS Triphasic arterial Doppler waveforms throughout Normal resting ABIs bilaterally CONCLUSIONS No evidence of any significant arterial obstruction, based on the above findings. Dr Shirin Kendrick MD FACC (Electronically Signed) Final Date: 09 November 2021 12:41 S
[2021-11-08 20:00] VITALS: BP 135/72; PULSE 81; RESP 17; TEMP 36.8; O2SAT 90
--- NOTE | 2021-11-08 20:10 | P.CONIM_ITS ---
Providers/Reason For Consult Consulting Physician/Specialty*: Dr. Moreno/cardiothoracic surgery Reason for Consult*: Worsening appearance left foot with diabetic foot ulcer Requesting Physician: Dr. Vela Attending Physician: Darren Vela MD Primary Care Provider: Sulma Wetzel MD History of Present Illness History of Present Illness Akil Velasco is a 51 year old male with a history for end-stage renal disease o n hemodialysis 3 times weekly for about 1 year. His auto tech is Dr. Smith. He receives dialysis at the [facility]. He has been followed for some time by Ms. Carolyn Ferrara and [facility] wound care services for a left calcaneal diabetic ulcer. At the time of my visit and exam today, he has periwound felt over the wound. He has primary care provider, Dr. Wetzel had contacted me by phone previously with concerns of what she thought was, similar to a degloving injury to the left foot. She was worried about vascular compromise and had a CTA with runoff performed. This study was completed on November 04. This was a challenging study to interpret and much of it was nondiagnostic related to motion artifact, dense calcifications, and poor bolus injection. There was dense circumferential calcification of the superficial femoral arteries bilaterally through the ankles obscuring the lumen of the vessels, therefore patency could not be ascertained. An ADAN was performed back in July though this was not really diagnostic either due to noncompressible vessels at the ankles bilaterally. Venous duplex study of September 07 revealed no evidence for DVT. Upon my exam, he has chronic stasis changes to lower extremities bilaterally and he has some epidermal lysis of the left foot, particular involving the third fourth and fifth toes. There are no exposed deep structures or bone. He has a relatively clean ulceration over the left calcaneal region with periwound felt present. This is being attended to and addressed weekly by Ms. Carolyn Ferrara from [facility] wound care services. He denies fever, chills, or substantial drainage from his calcaneal wound. He states the skin changes to his left foot, particularly involving the toes laterally has occurred in the last 2 weeks. Review of Systems Const: Denies: fever(s) or chills Card: Denies: chest pain or palpitations Resp: Denies: dyspnea or productive cough GI: Denies: abdominal pain, nausea or vomiting Musc: Reports: extremity pain (Left foot) Psych: Denies: anxiety or depression Medications/Allergies Home Medications Medication Instructions Recorded Confirmed Last Taken Type aspirin 81 mg tablet,delayed 81 mg PO QAM 10/04/20 11/08/21 11/08/21 06:00 History release isosorbide mononitrate 120 mg 120 mg PO QAM 10/04/20 11/08/21 11/08/21 06:00 History tablet,extended release 24 hr sevelamer carbonate 800 mg tablet See Rx Instructions .ROUTE .COMPLEX 11/11/20 11/08/21 09/06/21 History sodium bicarbonate 650 mg tablet 650 mg PO QAM 11/11/20 11/08/21 11/08/21 History carvedilol 25 mg tablet 25 mg PO BID 04/25/21 11/08/21 11/08/21 06:00 History vit B,C-folic ac 800 mcg-zinc 12.5 1 tab PO QAM 04/25/21 11/08/21 11/08/21 History mg-selen-D3 2,000 unit-vit E tablet (RenaPlex-D) Wheel Chair #1 ea 08/18/21 11/08/21 Unknown Rx acetaminophen 500 mg tablet 500 - 1,000 mg PO Q6H PRN 08/22/21 11/08/21 Unknown History amlodipine 10 mg tablet 10 mg PO QAM 08/22/21 11/08/21 11/08/21 06:00 History atorvastatin 80 mg tablet 80 mg PO QAM 08/22/21 11/08/21 11/01/21 History brexpiprazole 0.25 mg tablet 0.25 mg PO QAM 08/22/21 11/08/21 10/25/21 History (Rexulti) bumetanide 2 mg tablet 4 mg PO QAM 08/22/21 11/08/21 10/25/21 History pt states stop takin clonazepam 0.5 mg tablet 0.5 mg PO BID 08/22/21 11/08/21 09/06/21 History gabapentin 300 mg capsule 300 mg PO DAILY PRN 08/22/21 11/08/21 09/06/21 History hydroxyzine pamoate 25 mg capsule 25 mg PO DAILY PRN 08/22/21 11/08/21 Unknown History insulin aspart U-100 100 unit/mL See Rx Instructions .ROUTE .COMPLEX 08/22/21 11/08/21 Unknown History subcutaneous solution (Novolog U-100 Insulin aspart) insulin glargine 100 unit/mL 40 - 60 unit SUBCUT QAM PRN 08/22/21 11/08/21 09/06/21 History subcutaneous solution (Lantus U-100 Insulin) lidocaine-prilocaine 2.5 %-2.5 % 1 applic TOPICAL . DIRECTED 08/22/21 11/08/21 Unknown History topical cream losartan 50 mg tablet 50 mg PO QAM 08/22/21 11/08/21 11/08/21 06:00 History ropinirole 0.25 mg tablet 0.25 mg PO BEDTIME PRN 08/22/21 11/08/21 09/06/21 History sodium zirconium cyclosilicate 5 See Rx Instructions .ROUTE .COMPLEX 08/22/21 11/08/21 09/06/21 History gram oral powder packet (keloh) trazodone 50 mg tablet 25 mg PO BEDTIME PRN 08/22/21 11/08/21 Unknown History triamcinolone acetonide 0.1 % 1 applic TOPICAL BID PRN 08/22/21 11/08/21 Unknown History topical ointment cefepime 1 gram solution for 500 mg IM .after HD 42 Days #10 ea 08/26/21 11/08/21 Unknown Rx injection venlafaxine 150 mg 150 mg PO QAM 09/07/21 11/08/21 11/08/21 History capsule,extended release 24 hr clonidine HCl 0.2 mg tablet 0.2 mg PO TID 09/12/21 11/08/21 11/08/21 06:00 History diazepam 5 mg tablet 5 - 10 mg PO . DIRECTED 09/28/21 11/08/21 11/01/21 History ofloxacin 0.3 % eye drops 2 drp OTIC (EAR) PRN PRN 09/28/21 11/08/21 Unknown History multivitamin 1 tab PO DAILY 11/08/21 11/08/21 Unknown History Allergies Allergy/AdvReac Type Severity Reaction Status Date / Time vancomycin Allergy Unknown Rash Verified 09/12/21 09:39 linezolid [From Zyvox] Allergy tendonitis Verified 09/12/21 09:39 ciprofloxacin [From Cipro] AdvReac Severe Tendonitis Verified 09/12/21 09:39 Current Medications Generic Name Dose Route Start Last Admin Trade Name Freq PRN Reason Stop Dose Admin Heparin Sodium (Porcine) 5,000 unit 11/08/21 13:15 11/08/21 15:37 Heparin 5,000 Unit/Ml Inj 1 Ml SUBCUT 5,000 unit Q12H [place] Administration Insulin Human Lispro 0 unit 11/08/21 18:00 11/08/21 17:49 Insulin Lispro 100 Unit/1 Ml SUBCUT Not Given WM&BEDTIME [facility] Protocol Oxycodone HCl 5 mg 11/08/21 13:05 11/08/21 15:36 Oxycodone 5 Mg Ir Tab/Cap PO 5 mg Q6H PRN Administration SEVERE PAIN PFSH Acute PFSH: Medical History Acute and chronic respiratory failure with hypercapnia Anemia BMI 50.0-59.9, adult Cardiac arrest (~07/2020) when had covid CHF (congestive heart failure), NYHA class III Chronic respiratory failure with hypoxia and hypercapnia Chronic venous insufficiency COPD (chronic obstructive pulmonary disease) COPD (chronic obstructive pulmonary disease) Diabetes Diabetic foot ulcers Diabetic ulcer of left foot ESRD (end stage renal disease) on dialysis ESRD on dialysis First degree heart block Fracture of fifth metatarsal bone of left foot Fracture of fourth metatarsal bone of left foot Fracture, thoracic vertebra T7-T8 History of renal cell carcinoma Hypertension Lung nodule Morbid obesity with BMI of 40.0-44.9, adult Neuropathy Non-pressure chronic ulcer of other 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 No recurrence for long-term follow-up with some suspicion on CT scan April 2020. Restrictive lung disease Type 2 diabetes mellitus with diabetic polyneuropathy Urinary retention Surgical History H/O partial nephrectomy bilateral H/O wisdom tooth extraction History of cataract surgery Hx of lymph node excision Family History Father , at age 65 Diabetes Cancer Metastatic prostate cancer to liver Mother , at age 72 Diabetes Grandfather Diabetes Cancer Other Anemia Hyperlipidemia Social History Smoking and tobacco status: never smoked Second hand smoke exposure: Yes Smoking risk assessment/counseling performed?: Yes Alcohol intake: current Alcohol intake frequency: holidays/special occasions only Lives independently: Yes Household members: spouse Housing: House Marital status: service: No Current occupational status: retired Pets and animals: Yes History of recent travel: No Current gender identity: Male Vitals/I&O/Wt Last Vital Signs Temp 98.3 F 11/08/21 20:00 Pulse 81 11/08/21 20:00 Resp 17 11/08/21 20:00 BP 135/72 11/08/21 20:00 Pulse Ox 90 11/08/21 20:00 11/08/21 11/08/21 11/08/21 06:59 14:59 22:59 Output Total 0 / 0 Balance 0 / 0 Physical Exam HENMT: COMMON NORMALS: normocephalic, atraumatic, hearing grossly normal bilaterally and external ears normal HEAD & SCALP: normocephalic and atraumatic EXTERNAL EAR: Yes external ears normal Eye: COMMON NORMALS: Equal, round and reactive pupils present, EOMs intact bilaterally and no scleral icterus PUPIL: Yes Equal, round and reactive pupils present Chest: COMMONS NORMALS: normal palpation of entire chest wall Resp: COMMON NORMALS: normal respiratory effort, No retractions, No use of accessory muscles and clear to auscultation bilaterally AUSCULTATION: clear to auscultation bilaterally Cardio: OTHER: Distal extremity pulses are not palpable. GI: INSPECTION: Yes central obesity and Yes striae AUSCULTATION: Yes n ormoactive bowel sounds Extremity: OTHER: There appears to be chronic venous stasis changes to the lower extremities bilaterally, particular in the pretibial regions. There is a clean ulceration to the calcaneal aspect of the left foot with periwound felt in place. This wound measures approximately 3 x 2 cm x 1/2 cm in depth. There is epidermal lysis of the third fourth and fifth toes of the left with some moisture between the toes. No mehran ulcerations or exposed deep structures are noted. Neuro: OTHER: Hypoesthesia of the feet bilaterally. Psych: COMMON NORMALS: mental status grossly normal, Normal thought process present, cooperative, normal affect and speech normal SPEECH: Yes normal speech THOUGHT PROCESS: Normal thought process present Data : 11/08/21 13:42 11/08/21 13:42 Micro: Microbiology 11/08/21 13:42 Blood Culture - Preliminary Blood SPECIMEN COLLECTED 11/08/21 13:46 Blood Culture - Preliminary Blood SPECIMEN COLLECTED A&P Assessment and plan (1) Diabetic foot ulcer: Stable what appears to be improving diabetic foot ulcer of the calcaneal region of the left foot. There are epidermal lysis changes to the third fourth and fifth toes of the left foot and by radiograph examinations including CTA with Ladonna runoff recently performed, there is extensive peripheral vascular calcification making interpretation of the imaging study challenging and rather nondiagnostic. Recommendation: I recommend that arterial duplex of the lower extremities bilaterally hopefully allow for some assessment of actual peripheral flow. In the interim I also recommend daily cleaning of his feet with chlorhexidine, drying thoroughly, and then applying drying agent between the toes and beneath the base of the toes on the plantar aspect. Such agents could include drawtex, Maxorb, or Interdry. I believe it be important to provide meticulous foot care in the interim. I will confer later with my colleague Dr. Vela. We will await the results of the arterial duplex. 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
[2021-11-08 20:52] LABS: Glucose Point of Care 119 mg/dL (70-110)
[2021-11-08] MEDS: iohexol 300 mg/mL 100 mL Btl IV (21:17)
[2021-11-08 22:13] VITALS: BP 135/72
[2021-11-08] MEDS: cloNIDine 0.1 mg Tablet 0.2 MG PO (22:13)
[2021-11-08] MEDS: piperacillin-tazobactam 3.375 GM in sodium chloride 0.9% (plus) 50 ML IV (23:53)
[2021-11-09] VITALS (8 sets, daily range): BP systolic 127–160; BP diastolic 70–74; PULSE 63–89; RESP 12–20; TEMP 36.6–36.8; O2SAT 90–96
--- NOTE | 2021-11-09 01:14 | PC.NURSE ---
Nurse assisted pt into bed, elevated left foot onto pillow and cleansed foot with Chlorhexidine, dried thoroughly, and placed interdry between toes. Pt denied foot pain and stated he could not feel nurse cleansing his foot. pulse is faint in the left foot. Scrotum elevated on pillow due to edema. Respiratory called to place BIpap. Pt resting comfortably in bed.
[2021-11-09] MEDS: heparin 5,000 unit/mL INJ 1 mL 5000 UNIT SUBCUT ×2 (01:24→14:20)
--- NOTE | 2021-11-09 04:52 | PC.NURSE ---
PT requested medication to help sleep, Nurse obtained order from night time hospitalist Dr. Sellers for Ambien 5mg PO, pt then refused med and said he changed his mind, medication was charted as refused.
[2021-11-09] MEDS: amlodipine 10 mg Tablet PO (05:36)
[2021-11-09] MEDS: aspirin 81 mg EC Tablet PO (05:37)
[2021-11-09] MEDS: atorvastatin 40 mg Tablet 80 MG PO (05:37)
[2021-11-09] MEDS: isosorbide mononitrate ER 60 mg Tablet 120 MG PO (05:38)
[2021-11-09] MEDS: venlafaxine ER (24HR) 150 mg Capsule PO (05:39)
[2021-11-09] MEDS: sodium bicarbonate 650 mg Tablet PO (05:39)
[2021-11-09] MEDS: losartan 50 mg Tablet PO (05:40)
--- NOTE | 2021-11-09 05:45 | PC.NURSE ---
PT refused morning dose of Bumex 4 mg PO, pt stated that his home [employer] did not want him taking the bumex anymore. PT is noncompliant with keeping his left foot elevated or scrotum elevated. PT insists on dangling his feet off the bed despite Nurse education about edema in his BLE.
[2021-11-09] MEDS: piperacillin-tazobactam 3.375 GM in sodium chloride 0.9% (plus) 50 ML IV (06:19)
--- NOTE | 2021-11-09 09:10 | PM.PN ---
Subjective Subjective: c/o foot pain. seen on hd, swollen, tolerating well. Medications: Reviewed: Yes Medication Review Details: Current Medications Acetaminophen (Acetaminophen 325 Mg Tablet) 650 mg PO Q6H PRN PRN Reason: Mild/Mod Pain Or Temp >/= 101 Amlodipine Besylate (A[facility]ipine 10 Mg Tablet) [facility] [place] Admin: 11/09/21 05:36 Dose: 10 mg Documented by: Aspirin (Aspirin 81 Mg Ec Tablet) [facility] [place] Admin: 11/09/21 05:37 Dose: 81 mg Documented by: Atorvastatin Calcium (Atorvastatin 40 Mg Tablet) [facility] [place] Admin: 11/09/21 05:37 Dose: 80 mg Documented by: Bumetanide (Bumetanide 1 Mg Tablet) [facility] [place] Admin: 11/09/21 05:36 Dose: Not Given Documented by: Carvedilol (Carvedilol 25 Mg Tablet) 25 mg PO BID@0900,2100 COUNTS INCLUDE 234 BEDS AT THE [facility] Clonazepam (Clonazepam 0.5 Mg Tablet) 0.5 mg PO BID@0900,2100 COUNTS INCLUDE 234 BEDS AT THE [facility] Clonidine HCl (Clonidine 0.1 Mg Tablet) 0.2 mg PO TID COUNTS INCLUDE 234 BEDS AT THE [facility] Last Admin: 11/08/21 22:13 Dose: 0.2 mg Documented by: Dextrose (Dextrose 50% Syringe 50 Ml) 25 ml IVP ONCE PRN; Protocol PRN Reason: hypoglycemia protocol Dextrose (Dextrose 50% Syringe 50 Ml) 50 ml IVP PRN PRN; Protocol PRN Reason: hypoglycemia protocol Glucagon (Glucagon 1 Mg/Ml Inj 1 Ml) 1 mg IM ONCE PRN; Protocol PRN Reason: Adult Acute Hypoglycemia Prot. Heparin Sodium (Porcine) (Heparin 5,000 Unit/Ml Inj 1 Ml) 5,000 unit SUBCUT Q12H COUNTS INCLUDE 234 BEDS AT THE [facility] Last Admin: 11/09/21 01:24 Dose: 5,000 unit Documented by: Dextrose (D5w) 500 mls @ 100 mls/hr IV ONCE PRN; Protocol PRN Reason: Adult Acute Hypoglycemia Prot Piperacillin Sod/Tazobactam (Sod 3.375 gm/ Sodium Chloride) 50 mls @ 12.5 mls/hr IV Q8H COUNTS INCLUDE 234 BEDS AT THE [facility]; Protocol Last Admin: 11/09/21 06:19 Dose: 12.5 mls/hr Documented by: Insulin Human Lispro (Insulin Lispro 100 Unit/1 Ml) 0 unit SUBCUT WM&BEDTIME COUNTS INCLUDE 234 BEDS AT THE [facility]; Protocol Last Admin: 11/08/21 22:16 Dose: Not Given Documented by: Isosorbide Mononitrate (Isosorbide Mononitrate Er 60 Mg Tablet) 120 mg PO [facility] Last Admin: 11/09/21 05:38 Dose: 120 mg Documented by: Losartan Potassium (Losartan 50 Mg Tablet) 50 mg PO [facility] Last Admin: 11/09/21 05:40 Dose: 50 mg Documented by: Non-Formulary Medication (Brexpiprazole [Rexulti]) 0.25 mg PO [facility] Last Admin: 11/09/21 05:36 Dose: Not Given Documented by: Ondansetron HCl (Ondansetron 2 Mg/Ml Sdv 2 Ml) 4 mg IVP Q6H PRN PRN Reason: vomiting, or N/V if npo Oxycodone HCl (Oxycodone 5 Mg Ir Tab/Cap) 5 mg PO Q6H PRN PRN Reason: SEVERE PAIN Last Admin: 11/08/21 15:36 Dose: 5 mg Documented by: Ropinirole HCl (Ropinirole 0.25 Mg Tablet) 0.25 mg PO BEDTIME PRN PRN Reason: Restless Leg(S) Sevelamer Carbonate (Sevelamer 800 Mg Tablet) 1,600 mg PO TIDWM COUNTS INCLUDE 234 BEDS AT THE [facility] Sevelamer Carbonate (Sevelamer 800 Mg Tablet) 800 mg PO BID PRN PRN Reason: WITH SNACKS Sodium Bicarbonate (Sodium Bicarbonate 650 Mg Tablet) 650 mg PO [facility] Last Admin: 11/09/21 05:39 Dose: 650 mg Documented by: Trazodone HCl (Trazodone 50 Mg Tablet) 25 mg PO BEDTIME PRN PRN Reason: Sleep Venlafaxine HCl (Venlafaxine Er (24hr) 150 Mg Capsule) 150 mg PO [facility] Last Admin: 11/09/21 05:39 Dose: 150 mg Documented by: Vitals/I&O/Wt Last Vital Signs Temp 98.2 F 11/09/21 04:00 Pulse 63 11/09/21 07:41 Resp 19 H 11/09/21 07:29 BP 160/74 11/09/21 07:29 Pulse Ox 93 11/09/21 07:41 11/08/21 11/09/21 11/09/21 22:59 06:59 14:59 Intake Total 290 / 290 Output Total 0 / 0 260 / 260 Balance 0 / 0 30 / 30 Weight last 48 hrs Weight 151.863 kg Weight 153.042 kg Physical Exam Narrative: obese man. comfortable on dialysis. NARD vs noted heent- nc/at, eomi neck supple lungs dull bases and crackles b/l heart reg, no rub, +YAS abd soft, nt,distended +BS ext b/l edema + left heal ulcer neuro- a,a, o x 3 Data : 11/08/21 13:42 11/08/21 13:42 Micro: Microbiology 11/08/21 13:42 Blood Culture - Preliminary Blood SPECIMEN COLLECTED 11/08/21 13:46 Blood Culture - Preliminary Blood SPECIMEN COLLECTED A&P Assessment and plan (1) ESRD (end stage renal disease) on dialysis: 51 yr old man 1. ESRD- HD MWF 2. DM foot ulcer- renal dose abx 3. htn- monitor w/ fluid removal on hd 4. PAD-per Dr. Moreno 5. dm care per PMD 6. anemia - hgb okay for ESRD and cellulitis 7. renal - bone- mineral metabolism -check phosp pt seen and examined w/ RN- telehealth visit Status: Acute Plan as above Attestations Medical Necessity Statement*: per medicine Time Spent in Patient Care: 16 - 35 minutes (>than 50% of time spent in counselling and/or direct pt care on unit). 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
[2021-11-09 10:36] LABS: Hepatitis B Core AB, Total Non-Reactive (Nonreactive); Hepatitis B Surface AB 55.7 (11.5-1000); Hepatitis B Surface Antigen Non-Reactive (Nonreactive)
--- NOTE | 2021-11-09 11:15 | PC.CHAP ---
Pastoral Care Encounter/Spiritual Assessment Type of Contact [] Declined air quality instrument specialist visit [] Patient/Family/Request visit [] Outpatient visit [] Follow-up visit [] Physician referral [] Code/Alert [x] Routine visit [] Staff referral [] Actively dying [] Patient sleeping [] Family support [] x[x] Out of room [] Palliative care [] [] Receiving care in room [] Pre-surgical visit [] Trauma [] Long length of stay [] ICU visit [] Other: Relational/Emotional Strength [] Patient feels connected with others/family/visitors/staff [] Distress [] Loneliness/isolation [] Abandonment Spirituality of Patient [] Person of Lizabeth [] Attends Latter-Day of their Lizabeth [] Believes in Prayer [] Reads Bible or Synagogue materials [] There are Spiritual issues to be addressed Entry Level Web Developer Interventions [] Prayer [] Active listening [] Non-anxious presence [] Spiritual/emotional support [] Crisis/trauma care [] Spiritual counseling [] Bereavement support [] Provided bereavement packet [] Provided Bible/devotional materials [] Provided toy/stuffed animal, coloring book to patient or family member [] Provided Communion [] Anointing/[place]ill [] Salvation [] Completed spiritual assessment [] Other: Impact on Illness or Injury [] Angry [] Fearful [] Anxious [] Often cries [] Exhaustion [] Unable to work [] Unable to attend taoist [] Unable to walk/stand [] Unable to read [] Unable to drive [] Unable to eat/drink [] Unable to sleep [] Unable to be with family [] Patient intubated [] Other: Summary Time spent with patient
[2021-11-09 11:40] LABS: Hepatitis C Virus Antibody Non-Reactive (Nonreactive)
[2021-11-09 13:16] LABS: Glucose Point of Care 117 mg/dL (70-110)
--- NOTE | 2021-11-09 13:43 | P.DS_ITS ---
Discharge Providers Date of Admission: 11/08/21 12:19 Date of Discharge: November 09, 2021 Attending Provider at Admission: Darren Vela MD Attending Provider at Discharge: Darren Vela MD Primary Care Provider: Sulma Wetzel MD Diagnoses at Discharge Discharge Diagnosis (1) ESRD (end stage renal disease) on dialysis: Status: Acute Reason for Visit Reason for Visit: Cellulitis fluid with foot ulcer Hospital Course Hospital Course Akil is a 51-year-old white male who was directly admitted secondary to worsening appearance of his left foot. He had recently completed a 6-week course of daptomycin. He had been prescribed cefepime before secondary to Pseudomonas found on culture from August 23. It is not clear if he ever got this antibiotic. Wound had significant excessive moisture on admission. A CT scan was done which demonstrated chronic osteomyelitis in the bases of the third through fifth metatarsals. He was afebrile, normal white count. Sedimentation rate and CRP were slightly elevated. IV Zosyn was started, and investigation of his vasculature occurred. He had previously had a CTA. This was followed up on with arterial ultrasound, which did not demonstrate any significant arterial obstruction. Foot was warm. Cap refill was less than 2 seconds. On November 09 the foot was looking much better, as the wound was not as wet. He had not had any fevers overnight. It was thought he could be discharged home. He will be placed on cefepime secondary to his previous Pseudomonas culture. He will get at least 6 doses, 2 weeks, of 2 g IV following dialysis. I discussed with him and his family regarding follow-up with infectious disease, and they reported they will probably do this in [place] and it will be set up by their primary care provider. I encouraged him to follow-up with wound care clinic. Serial measurement of inflammatory markers and CBC should occur every 2 weeks, with early intervention should inflammatory markers worsen. Physical Exam Narrative: General exam no distress Neck is supple Cardiovascular regular in rhythm without murmur Lungs clear Abdomen is soft with positive bowel sounds Extremities no cyanosis clubbing. 1+ edema is noted. Left foot looks markedly improved. No significant cellulitis surrounding his ulcerations on his toes. No significant drainage. AV fistula left arm intact. Discharge Data Studies Completed and Pending Completed Studies During Hospitalization Category Date Time Status CT foot LT w con [id number] Routine Cat Scan 11/08/21 13:33 [place] [id number] Routine Ultrasound 11/08/21 18:23 Completed Pending at discharge Category Date Time Status Blood Culture Routine Lab 11/08/21 13:42 Results Complete Blood Count w/Auto AM LABS Lab 11/10/21 04:00 Ordered Complete Blood Count w/Auto AM LABS Lab 11/11/21 04:00 Ordered Complete Blood Count w/Auto AM LABS Lab 11/12/21 04:00 Ordered Comprehensive Metabolic Panel AM LABS Lab 11/10/21 04:00 Ordered Comprehensive Metabolic Panel AM LABS Lab 11/11/21 04:00 Ordered Comprehensive Metabolic Panel AM LABS Lab 11/12/21 04:00 Ordered Magnesium AM LABS Lab 11/10/21 04:00 Ordered Magnesium AM LABS Lab 11/11/21 04:00 Ordered Magnesium AM LABS Lab 11/12/21 04:00 Ordered Phosphorus AM LABS Lab 11/10/21 04:00 Ordered Phosphorus AM LABS Lab 11/11/21 04:00 Ordered Phosphorus AM LABS Lab 11/12/21 04:00 Ordered Radiology Impressions Foot CT 11/08/21 13:33 IMPRESSION: Ulcer in the soft tissues below the base of the 5th metatarsal with chronic osteomyelitis in the bases of the 3rd through 5th metatarsals. Diffuse cellulitis throughout the foot and ankle. Laboratory Results WBC 5.4 10^3/uL (4.0-10.0) 11/08/21 13:42 RBC 3.62 10^6/uL (4.1-5.3) L 11/08/21 13:42 Hgb 10.4 g/dL (11.7-16.6) L 11/08/21 13:42 Hct 33.9 % (42.0-52.0) L 11/08/21 13:42 MCV 93.6 fl (80-94) 11/08/21 13:42 MCH 28.7 pg (28.0-34.0) 11/08/21 13:42 MCHC 30.7 g/dL (30.0-36.0) 11/08/21 13:42 RDW 16.5 % (12.1-15.1) H 11/08/21 13:42 Plt Count 179 10^3/cmm (130-400) 11/08/21 13:42 MPV 9.9 fL (7.4-10.4) 11/08/21 13:42 Neut % (Auto) 67.1 % 11/08/21 13:42 Lymph % (Auto) 9.9 % 11/08/21 13:42 [place] % (Auto) 15.5 % 11/08/21 13:42 Eos % (Auto) 6.4 % 11/08/21 13:42 Baso % (Auto) 0.9 % 11/08/21 13:42 Neut # (Auto) 3.59 10^3/uL (1.8-7.7) 11/08/21 13:42 Lymph # (Auto) 0.5 10^3/uL (0.8-4.8) L 11/08/21 13:42 [place] # (Auto) 0.8 10^3/uL (0.2-0.9) 11/08/21 13:42 Eos # (Auto) 0.3 10^3/uL (0.0-0.8) 11/08/21 13:42 Baso # (Auto) 0.1 10^3/uL (0.0-0.1) 11/08/21 13:42 Nucleated RBC % (auto) 0 % 11/08/21 13:42 Nucleated RBCs # 0.0 /100WBC 11/08/21 13:42 ESR 64 mm/hr (0-10) H 11/08/21 13:42 Sodium 139 mmol/L (136-145) 11/08/21 13:42 Potassium 4.7 mmol/L (3.5-5.1) 11/08/21 13:42 Chloride 99 mmol/L (98-107) 11/08/21 13:42 Carbon Dioxide 27 mmol/L (22-29) 11/08/21 13:42 Anion Gap 17.7 (5-19) 11/08/21 13:42 BUN 34 mg/dL (6-20) H 11/08/21 13:42 Creatinine 4.0 mg/dL (0.7-1.2) H 11/08/21 13:42 GFR Calculation 15.9 mL/min (90-130) L 11/08/21 13:42 Glucose 118 mg/dL (65-115) H 11/08/21 13:42 POC Glucose 117 mg/dL (70-110) H 11/09/21 13:01 Calculated Osmolality 297 mOsm/kg (285-295) H 11/08/21 13:42 Calcium 9.5 mg/dL (8.5-10.5) 11/08/21 13:42 Total Bilirubin 0.7 mg/dL (0.15-1.2) 11/08/21 13:42 AST 22 U/L (0-40) 11/08/21 13:42 ALT 13 U/L (0-41) 11/08/21 13:42 Alkaline Phosphatase 167 IU/L (40-130) H 11/08/21 13:42 C-Reactive Protein 39.2 mg/L (0.0-4.9) H 11/08/21 13:42 Total Protein 7.4 g/dL (6.6-8.7) 11/08/21 13:42 Albumin 4.1 g/dL (3.5-5.2) 11/08/21 13:42 Globulin 3.3 g/dL (1.3-4.6) 11/08/21 13:42 Hep Bs Antigen Non-reactive (Nonreactive) 11/09/21 09:24 Hep Bs Antibody 55.7 (11.5-1000) 11/09/21 09:24 Hep B Core Total Ab Non-reactive (Nonreactive) 11/09/21 09:24 Hepatitis C Antibody Non-reactive (Nonreactive) 11/09/21 09:24 Vitals Last Vital Signs Temp 98.2 F 11/09/21 04:00 Pulse 63 11/09/21 07:41 Resp 19 H 11/09/21 07:29 BP 160/74 11/09/21 07:29 Pulse Ox 93 11/09/21 07:41 Discharge Plan Discharge Patient Disposition: Home Condition: Stable Prescriptions: New cefepime 2 gram recon soln See Rx Instructions .ROUTE .COMPLEX Qty: 6 0RF Rx Instructions: 2,000 mg intravenously after dialysis for 6 doses Continued (DME) Wheel Chair See Rx Instructions .Route .MEDSUPPLY Qty: 1 0RF Rx Instructions: As directed HOME aspirin 81 mg Tablet,Delayed Release (Dr/Ec) 81 mg PO QAM 0RF isosorbide mononitrate 120 mg Tablet Extended Release 24 Hr 120 mg PO QAM 0RF sodium bicarbonate 650 mg tablet 650 mg PO QAM 0RF sevelamer carbonate 800 mg tablet See Rx Instructions .ROUTE .COMPLEX 0RF Rx Instructions: 2 tabs po with meals and 1 tab with snacks venlafaxine 150 mg capsule,extended release 24hr 150 mg PO QAM 0RF diazepam 5 mg tablet 5 - 10 mg PO . DIRECTED 0RF ofloxacin 0.3 % drops 2 drp otic (ear) PRN PRN (Reason: water exposure) 0RF Rx Instructions: (left ear)Apply 2 drops to each ear after water exposure RenaPlex-D 800 mcg-12.5 mg -2,000 unit tablet 1 tab PO QAM 0RF carvedilol 25 mg tablet 25 mg PO BID 0RF losartan 50 mg tablet 50 mg PO QAM 0RF atorvastatin 80 mg tablet 80 mg PO QAM 0RF Lantus U-100 Insulin 100 unit/mL solution 40 - 60 unit SUBCUT QAM PRN (Reason: blood sugar) 0RF trazodone 50 mg tablet 25 mg PO BEDTIME PRN (Reason: Sleep) 0RF clonazepam 0.5 mg tablet 0.5 mg PO BID 0RF acetaminophen 500 mg Tablet 500 - 1,000 mg PO Q6H PRN (Reason: Pain) 0RF lidocaine-prilocaine 2.5-2.5 % cream 1 applic topical . DIRECTED 0RF ropinirole 0.25 mg tablet 0.25 mg PO BEDTIME PRN (Reason: Restless Leg(S)) 0RF amlodipine 10 mg tablet 10 mg PO QAM 0RF insulin aspart U-100 [Novolog U-100 Insulin aspart] 100 unit/mL solution See Rx Instructions .ROUTE .COMPLEX 0RF Rx Instructions: sliding scale prn triamcinolone acetonide 0.1 % ointment 1 applic TOPICAL BID PRN (Reason: unknown) 0RF gabapentin 300 mg capsule 300 mg PO DAILY PRN (Reason: Pain) 0RF hydroxyzine pamoate 25 mg capsule 25 mg PO DAILY PRN (Reason: Itching) 0RF Rexulti 0.25 mg tablet 0.25 mg PO QAM 0RF Lokelma 5 gram powder in packet See Rx Instructions .ROUTE .COMPLEX 0RF Rx Instructions: 1 packet po on tues,thurs,sat and sun (non dialysis days) clonidine HCl 0.2 mg Tablet 0.2 mg PO TID 0RF multivitamin Tablet 1 tab PO DAILY 0RF Discontinued bumetanide 2 mg tablet 4 mg PO QAM 0RF cefepime 1 gram recon soln 500 mg IM .after HD 42 Days Qty: 10 4RF Discharge Orders: Discharge Order (Routine); Ordered 11/09/21 Ordered By: Darren Vela Referrals: Sulma Wetzel MD [Primary Care Provider] - 4-7 days Matt Moreno MD [Physician] - 4-7 days (Follow-up in wound care next week with Carolyn Ferrara, or Dr. Moreno) Discharge Diet: Diabetic Discharge Activity: Increase activity as tolerated Patient Instructions: Opioid Safety Activity Restrictions/Additional Instructions: Clean feet daily with chlorhexidine. Dry thoroughly and then apply drying agent between the toes. Keep follow-up with wound care, primary care provider Cefepime following dialysis for 6 doses Keep weight off wound and foot Recommend sedimentation rate and CRP, CBC in 2 weeks. Discharge Attestations Time Spent in Discharge Care*: greater than 30 min Status at Discharge: Cognitive status at discharge: cognitively intact , Behavioral status at discharge: cooperative , Quality Metrics Clinical Quality Measures [ No reported AMI, CVA or VTE this stay] Coding Level of Care Code Acute Chg FW DC note Diagnoses ESRD (end stage renal disease) on dialysis N18.6; Z99.2
[2021-11-09] MEDS: sevelamer 800 mg Tablet 1600 MG PO (14:13)
[2021-11-09] MEDS: cloNIDine 0.1 mg Tablet PO (14:15)
[2021-11-09] MEDS: cefepime 2,000 MG in sodium chloride 0.9% (plus) 50 ML 100 MG IV (14:22)
[2021-11-09 21:02] LABS: Glucose Point of Care 126 mg/dL (70-110)
== END 2021-11-09 15:30 | disposition home or self-care (01) | DRG 638 ==
PROVIDERS: Internal Medicine Nephrology; Admitting Provider Internal Medicine; PCP Internal Medicine; Visit Provider Internal Medicine
DX: E11.621 Type 2 diabetes mellitus with foot ulcer (principal); M86.672 Other chronic osteomyelitis, left ankle and foot; L97.429 Non-pressure chronic ulcer of left heel and midfoot with unspecified severity; Z68.41 Body mass index [BMI] 40.0-44.9, adult; I13.2 Hypertensive heart and chronic kidney disease with heart failure and with stage 5 chronic kidney disease, or end stage renal disease; L97.529 Non-pressure chronic ulcer of other part of left foot with unspecified severity; Z79.4 Long term (current) use of insulin; E11.22 Type 2 diabetes mellitus with diabetic chronic kidney disease; N18.6 End stage renal disease; Z79.82 Long term (current) use of aspirin; Z99.2 Dependence on renal dialysis; I73.9 Peripheral vascular disease, unspecified; D63.1 Anemia in chronic kidney disease; E66.9 Obesity, unspecified; I50.9 Heart failure, unspecified; J44.9 Chronic obstructive pulmonary disease, unspecified; G47.33 Obstructive sleep apnea (adult) (pediatric)
CPT/HCPCS: 36415; 36416; 73701; 80053; 82962; 85025; 85651; 86140; 86705; 86706; 86803; 87040; 87340; 93925; 94660; 96372; J0692; J1644; J2543; Q9967

== ENCOUNTER → 2021-11-10 14:19 | Outpatient (BNVA) | payer MEDICARE, MEDICAID, SELFPAY | PROVIDERS: PCP Internal Medicine; Visit Provider Nurse Practitioner Family | DX: E11.621 Type 2 diabetes mellitus with foot ulcer (principal); I96 Gangrene, not elsewhere classified; L97.523 Non-pressure chronic ulcer of other part of left foot with necrosis of muscle; L89.312 Pressure ulcer of right buttock, stage 2 | CPT/HCPCS: 11042; A6250 ==

== ENCOUNTER → 2021-11-17 13:26 | Outpatient (BNVA) | payer MEDICARE, MEDICAID, SELFPAY | PROVIDERS: PCP Internal Medicine; Visit Provider Nurse Practitioner Family | DX: E11.621 Type 2 diabetes mellitus with foot ulcer (principal); L97.523 Non-pressure chronic ulcer of other part of left foot with necrosis of muscle; I96 Gangrene, not elsewhere classified; L89.312 Pressure ulcer of right buttock, stage 2; L97.811 Non-pressure chronic ulcer of other part of right lower leg limited to breakdown of skin | CPT/HCPCS: 11042; A6212; A6250 ==

== ENCOUNTER → 2021-11-22 09:37 | Outpatient (BNVA) | payer MEDICARE, MEDICAID, SELFPAY | PROVIDERS: PCP Internal Medicine; Visit Provider Otolaryngology | DX: H69.83 Other specified disorders of Eustachian tube, bilateral (principal) | CPT/HCPCS: 99213 ==

== ENCOUNTER → 2021-11-24 09:44 | Outpatient (BNVA) | payer MEDICARE, MEDICAID, SELFPAY | PROVIDERS: PCP Internal Medicine; Visit Provider Nurse Practitioner Family | DX: E11.621 Type 2 diabetes mellitus with foot ulcer (principal); L97.523 Non-pressure chronic ulcer of other part of left foot with necrosis of muscle; I96 Gangrene, not elsewhere classified; L89.311 Pressure ulcer of right buttock, stage 1; L97.522 Non-pressure chronic ulcer of other part of left foot with fat layer exposed | CPT/HCPCS: 11042; 11045; A6197 ==

== ENCOUNTER 2021-11-28 06:48 | Outpatient (CLI) | payer MEDICARE, MEDICAID, SELFPAY ==
--- NOTE | 2021-11-28 07:05 | MR_ITS ---
WS: [id number] MRI LEFT FOOT with and without CONTRAST. COMPARISON: None Multiplanar, multisequence imaging is performed with and without contrast. Sagittal and axial T1 fat sat sequences ProHance 17 cc IV. History: Nonhealing ulcer LEFT midfoot. There is extensive soft tissue thickening and edema along the lateral mid foot. There is a soft tissu e ulceration extending 1.8 cm in depth to contact the plantar surface of the fourth and fifth proxima l metatarsals. On the postcontrast imaging there is some very mild but diffuse soft tissue enhancemen t along the lateral aspect of the foot and through the ulceration bed. There is no focal fluid collec tion or liquefaction. On the T1 sequences cortical destruction and decreased signal in the proximal fourth and fifth metata rsals. Largest area of abnormal signal is in the proximal fifth metatarsal extending over length of 3 .0 cm. On the postcontrast images there is mild enhancement involving the proximal fifth metatarsal. The soft tissue enhancement extends to surround the proximal fourth metatarsal and is very closely as sociated with the cortex but no definite enhancement. There is mild enhancement within the cuboid. Mi ld loss of the normal joint with erosive type changes involving the proximal third, fourth and fifth metatarsals. Probably from prior treated osteomyelitis. There is mild enhancement in the soft tissues throughout the midfoot. MR/MR foot LT wo/w con [id number] IMPRESSION: 1. Large soft tissue ulceration along the plantar surface of the foot at the l evel of the proximal fourth metatarsal which extends and contacts the fourth me tatarsal. Consistent with cellulitis. No abscess. 2. Mild enhancement in the proximal 3 cm of the fifth metatarsal and the adjac ent cuboid. Findings suspicious and consistent with mild osteomyelitis. Celluli tis contacts the proximal fourth metatarsal but cannot confirm actual osteomyel itis. 3. Additional treated changes of osteomyelitis involving the proximal third, f ourth and fifth metatarsals.
== END 2021-11-28 06:49 | disposition home or self-care (01) ==
LOC: RAD 06:48
PROVIDERS: PCP Internal Medicine; Visit Provider Podiatrist Foot & Ankle Surgery
DX: M86.9 Osteomyelitis, unspecified (principal); L97.522 Non-pressure chronic ulcer of other part of left foot with fat layer exposed
CPT/HCPCS: 73720

== ENCOUNTER → 2021-11-29 11:06 | Outpatient (BNVA) | payer MEDICARE, MEDICAID, SELFPAY | PROVIDERS: PCP Internal Medicine; Visit Provider Internal Medicine Cardiovascular Disease | DX: I13.0 Hypertensive heart and chronic kidney disease with heart failure and stage 1 through stage 4 chronic kidney disease, or unspecified chronic kidney disease (principal); I13.2 Hypertensive heart and chronic kidney disease with heart failure and with stage 5 chronic kidney disease, or end stage renal disease; E11.22 Type 2 diabetes mellitus with diabetic chronic kidney disease; N18.6 End stage renal disease; I50.9 Heart failure, unspecified; Z99.2 Dependence on renal dialysis; Z79.4 Long term (current) use of insulin; Z79.84 Long term (current) use of oral hypoglycemic drugs; L97.522 Non-pressure chronic ulcer of other part of left foot with fat layer exposed; J44.9 Chronic obstructive pulmonary disease, unspecified | CPT/HCPCS: 99214 ==

== ENCOUNTER → 2021-12-01 10:13 | Outpatient (BNVA) | payer MEDICARE, MEDICAID, SELFPAY | PROVIDERS: PCP Internal Medicine; Visit Provider Nurse Practitioner Family | DX: E11.621 Type 2 diabetes mellitus with foot ulcer (principal); L97.523 Non-pressure chronic ulcer of other part of left foot with necrosis of muscle; I96 Gangrene, not elsewhere classified; L97.522 Non-pressure chronic ulcer of other part of left foot with fat layer exposed; L98.491 Non-pressure chronic ulcer of skin of other sites limited to breakdown of skin | CPT/HCPCS: 11042; A6197; A6250 ==

== ENCOUNTER → 2021-12-08 14:35 | Outpatient (BNVA) | payer MEDICARE, MEDICAID, SELFPAY | PROVIDERS: PCP Internal Medicine; Visit Provider Nurse Practitioner Family | DX: E11.621 Type 2 diabetes mellitus with foot ulcer (principal); L97.523 Non-pressure chronic ulcer of other part of left foot with necrosis of muscle; I96 Gangrene, not elsewhere classified; L97.522 Non-pressure chronic ulcer of other part of left foot with fat layer exposed; L98.491 Non-pressure chronic ulcer of skin of other sites limited to breakdown of skin | CPT/HCPCS: 11042; A6212 ==

== ENCOUNTER → 2021-12-15 13:52 | Outpatient (BNVA) | payer MEDICARE, MEDICAID, SELFPAY | PROVIDERS: PCP Internal Medicine; Visit Provider Nurse Practitioner Family | DX: E11.621 Type 2 diabetes mellitus with foot ulcer (principal); L97.523 Non-pressure chronic ulcer of other part of left foot with necrosis of muscle; I96 Gangrene, not elsewhere classified; L98.491 Non-pressure chronic ulcer of skin of other sites limited to breakdown of skin | CPT/HCPCS: 11042; 11045; A6197 ==

== ENCOUNTER 2021-12-28 09:06 | Outpatient (CLI) | payer MEDICARE, MEDICAID, SELFPAY ==
--- NOTE | 2021-12-28 09:22 | XRR_ITS ---
PROCEDURE INFORMATION: Exam: XR Left Humerus Exam date and time: 12/28/2021 9:37 AM Age: 51 years old Clinical indication: Pain and injury or trauma; Fall; Blunt trauma (contusions or hematomas); Arm, upper; Left; Upper arm; Injury date: 2 weeks ago; Additional info: Pain in left shoulder TECHNIQUE: Imaging protocol: XR Left humerus. Views: 2 or more views. Total images: 2 COMPARISON: CR XR chest 1V portable [id number] 09/27/2021 8:36 PM FINDINGS: Bones/joints: Normal. Soft tissues: Normal. XR/[place] [id number] IMPRESSION: No acute findings.
--- NOTE | 2021-12-28 09:36 | XRR_ITS ---
PROCEDURE INFORMATION: Exam: XR Left Shoulder Exam date and time: 12/28/2021 9:37 AM Age: 51 years old Clinical indication: Pain and injury or trauma; Fall; Blunt trauma (contusions or hematomas); Shoulder; Left; Injury date: 2 weeks ago; Additional info: Left shoulder pain TECHNIQUE: Imaging protocol: XR Left shoulder. Views: 2 or more views. Total images: 2 COMPARISON: CR XR chest 1V portable [id number] 09/27/2021 8:36 PM FINDINGS: Bones/joints: Normal. Soft tissues: Normal. XR/XR shoulder LT min 2V* [id number] IMPRESSION: No acute findings.
== END 2021-12-28 09:07 | disposition home or self-care (01) ==
PROVIDERS: PCP Internal Medicine; Visit Provider Internal Medicine
DX: M25.512 Pain in left shoulder (principal)
CPT/HCPCS: 73030; 73060

== ENCOUNTER → 2021-12-29 13:39 | Outpatient (BNVA) | payer MEDICARE, MEDICAID, SELFPAY | PROVIDERS: PCP Internal Medicine; Visit Provider Nurse Practitioner Family | DX: E11.621 Type 2 diabetes mellitus with foot ulcer (principal); L97.523 Non-pressure chronic ulcer of other part of left foot with necrosis of muscle; I96 Gangrene, not elsewhere classified; L98.491 Non-pressure chronic ulcer of skin of other sites limited to breakdown of skin | CPT/HCPCS: 11042 ==

== ENCOUNTER → 2022-01-05 13:10 | Outpatient (BNVA) | payer MEDICARE, MEDICAID, SELFPAY | PROVIDERS: PCP Internal Medicine; Visit Provider Nurse Practitioner Family | DX: E11.621 Type 2 diabetes mellitus with foot ulcer (principal); L97.523 Non-pressure chronic ulcer of other part of left foot with necrosis of muscle; I96 Gangrene, not elsewhere classified; L97.522 Non-pressure chronic ulcer of other part of left foot with fat layer exposed; L98.491 Non-pressure chronic ulcer of skin of other sites limited to breakdown of skin | CPT/HCPCS: 11042; 87070; 87077; 87176; 87186; 87205 ==

== ENCOUNTER → 2022-01-12 13:49 | Outpatient (BNVA) | payer MEDICARE, MEDICAID, SELFPAY | PROVIDERS: PCP Internal Medicine; Visit Provider Nurse Practitioner Family | DX: E11.621 Type 2 diabetes mellitus with foot ulcer (principal); L97.523 Non-pressure chronic ulcer of other part of left foot with necrosis of muscle; I96 Gangrene, not elsewhere classified; L97.522 Non-pressure chronic ulcer of other part of left foot with fat layer exposed; L98.491 Non-pressure chronic ulcer of skin of other sites limited to breakdown of skin | CPT/HCPCS: 11042 ==

== ENCOUNTER → 2022-01-19 13:47 | Outpatient (BNVA) | payer MEDICARE, MEDICAID, SELFPAY | PROVIDERS: PCP Internal Medicine; Visit Provider Nurse Practitioner Family | DX: E11.621 Type 2 diabetes mellitus with foot ulcer (principal); L97.423 Non-pressure chronic ulcer of left heel and midfoot with necrosis of muscle; I96 Gangrene, not elsewhere classified; L97.522 Non-pressure chronic ulcer of other part of left foot with fat layer exposed; L98.491 Non-pressure chronic ulcer of skin of other sites limited to breakdown of skin | CPT/HCPCS: 11042; A6197 ==

== ENCOUNTER → 2022-01-27 13:44 | Outpatient (BNVA) | payer MEDICARE, MEDICAID, SELFPAY | PROVIDERS: PCP Internal Medicine; Visit Provider Surgery | DX: E11.621 Type 2 diabetes mellitus with foot ulcer (principal); L97.523 Non-pressure chronic ulcer of other part of left foot with necrosis of muscle; L97.522 Non-pressure chronic ulcer of other part of left foot with fat layer exposed; Z09 Encounter for follow-up examination after completed treatment for conditions other than malignant neoplasm; I96 Gangrene, not elsewhere classified | CPT/HCPCS: 11042; A6197; A6251 ==

== ENCOUNTER 2022-01-31 05:53 | Inpatient (IN) | payer MEDICARE, MEDICAID, SELFPAY ==
[2022-01-31] VITALS (120 sets, daily range): BP systolic 102–218; BP diastolic 60–145; PULSE 72–100; RESP 9–35; TEMP 36.1–37; O2SAT 75–99; BMI 40.8
--- NOTE | 2022-01-31 06:05 | XRR_ITS ---
PROCEDURE INFORMATION: Exam: XR Chest Exam date and time: 01/31/2022 6:34 AM Age: 51 years old Clinical indication: Cough and shortness of breath; Prior surgery; Patient HX: HX of renal cancer; Additional info: Dyspnea/cough TECHNIQUE: Imaging protocol: Radiologic exam of the chest. Views: 1 view. Total images: 1 COMPARISON: CR XR chest 1V portable [id number] 09/27/2021 8:36 PM FINDINGS: Tubes, catheters and devices: Right-sided hemodialysis catheter in satisfactory location. No pneumothorax. Lungs: Trace bibasilar atelectasis or scar. Pleural spaces: See Tubes, catheters and devices finding. Heart/Mediastinum: Heart is enlarged but stable when compared to the prior exam. Bones/joints: Osseous structures are unchanged from the prior exam. XR/XR chest 1V portable [id number] IMPRESSION: 1. Right-sided hemodialysis catheter in satisfactory location. No pneumothorax. 2. Trace bibasilar atelectasis or scar. 3. Heart is enlarged but stable when compared to the prior exam.
--- NOTE | 2022-01-31 06:06 | ECG_ITS ---
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 Measurements Intervals [place] Rate: P: MO: QRS: QRSD: T: QT: QTc: Interpretive Statements Sinus rhythm Left atrial abnormality Intraventricular conduction delay Right axis deviation Pattern consistent with pulmonary disease Possible right ventricular hypertrophy WARNING: DATA QUALITY MAY AFFECT INTERPRETATION Compared to ECG 09/28/2021 06:07:32 No change Electronically Signed On 01-31-2022 16:52:02 CDT by Colby Fernandez M.D. [email or web address]
--- NOTE | 2022-01-31 06:19 | W.ED.WEAKNES ---
HPI - Weakness General: Chief complaint: Weakness Stated complaint: weakness Time Seen by Provider: 01/31/22 06:01 Source: patient Mode of arrival: EMS History of Present Illness: 51-year-old male presents emergency room complaining of increased weakness and dizziness. Patient is a gets dialysis 3 days a week Sunday. It is Sunday today last week he had 2 hours of his usual 5-hour dialysis run and stop because he said he felt restless. He states he had diarrhea on the following Sunday when he was due for dialysis and did not have any dialysis. Today he presents with decreased urine output and severe swelling to the level of the belly. He continues to complain of diarrhea. He recently has been being treated for a cellulitis through the wound care clinic with cefazolin for leg wound. He denies any fever sweats or chills interestingly the patient still does make some urine and is on high-dose furosemide. He denies any chest pain or abdominal pain but does feel bloated. MD Complaint: generalized weakness Onset (ago): day(s) (5) Duration: constant Location: LLE and RLE Migration: ascending Severity: severe Quality: aching Relieving factors: none and other Exacerbating factors: none Associated symptoms: Denies chest pain, chills, confusion, melena, decreased appetite, diaphoresis, dysuria, easy bruising, fever(s), headache(s), myalgias, nausea, short of breath, syncope or vomiting Review of Systems Const: Denies: fever(s), chills, fatigue, malaise or diaphoresis ENMT: Denies: throat pain, ear or mastoid pain, nasal discharge or nasal congestion Card: Reports: palpitations, edema, dyspnea on exertion and orthopnea; Denies: chest pain or syncope Resp: Denies: dyspnea, productive cough or non-productive cough GI: Denies: abdominal pain, nausea, vomiting or melena : Denies: flank pain, difficulty urinating, dysuria, urinary frequency or urinary urgency Skin/Breast: Denies: rash or pruritus Neuro: Denies: headache(s) or confusion Ramy/Lymph: Denies: easy bruising PFS ED PFSH: Medical History Acute and chronic respiratory failure with hypercapnia Anemia BMI 50.0-59.9, adult Cardiac arrest (~07/2020) when had covid CHF (congestive heart failure), NYHA class III Chronic respiratory failure with hypoxia and hypercapnia Chronic venous insufficiency COPD (chronic obstructive pulmonary disease) COPD (chronic obstructive pulmonary disease) Diabetes Diabetic foot ulcers Diabetic ulcer of left foot ESRD (end stage renal disease) on dialysis ESRD on dialysis First degree heart block Fracture of fifth metatarsal bone of left foot Fracture of fourth metatarsal bone of left foot Fracture, thoracic vertebra T7-T8 History of renal cell carcinoma Hypertension Lung nodule Morbid obesity with BMI of 40.0-44.9, adult Neuropathy Non-pressure chronic ulcer of other 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 No recurrence for long-term follow-up with some suspicion on CT scan April 2020. Restrictive lung disease Type 2 diabetes mellitus with diabetic polyneuropathy Urinary retention Surgical History H/O partial nephrectomy bilateral H/O wisdom tooth extraction History of cataract surgery Hx of lymph node excision Family History Father , at age 65 Diabetes Cancer Metastatic prostate cancer to liver Mother , at age 72 Diabetes Grandfather Diabetes Cancer Other Anemia Hyperlipidemia Social History Smoking and tobacco status: never smoked Second hand smoke exposure: Yes Smoking risk assessment/counseling performed?: Yes Alcohol intake: current Alcohol intake frequency: holidays/special occasions only Lives independently: Yes Household members: spouse Housing: House Marital status: service: No Current occupational status: retired Pets and animals: Yes History of recent travel: No Current gender identity: Male Physical Exam Const: COMMON NORMALS: no acute distress GENERAL APPEARANCE: cooperative ORIENTATION/CONSCIOUSNESS: Yes awake, Yes oriented to person, Yes oriented to place and Yes oriented to time HENMT: COMMON NORMALS: normocephalic, atraumatic and hearing grossly normal bilaterally HEAD & SCALP: normocephalic and atraumatic Neck/C-Spine: COMMON NORMALS: no JVD Resp: COMMON NORMALS: normal respiratory effort, No retractions, No use of accessory muscles and clear to auscultation bilaterally AUSCULTATION: clear to auscultation bilaterally Cardio: COMMON NORMALS: no JVD, regular rate, regular rhythm and No murmurs present (Cardio) RATE: regular rate RHYTHM: regular rhythm GI: COMMON NORMALS: Soft to palpation and No hepatosplenomegaly present AUSCULTATION: Yes normoactive bowel sounds PALPATION: Yes Soft to palpation, No Tenderness to palpation present (GI), No Guarding due to palpation present (GI) and Yes No hepatosplenomegaly present Extremity: GENERAL: Yes edema OTHER: 3+ edema of the lower extremities bilaterally with anasarca at the level of the umbilicus prominent edematous stria. Umbilical hernia noted as well. Neuro: SENSORIUM/ORIENTATION: Yes oriented to person, Yes oriented to place and Yes oriented to time Course Vital Signs: Vital signs: Vital Signs Temperature 97.0 F L 01/31/22 05:54 Pulse Rate 96 01/31/22 08:30 Respiratory Rate 20 H 01/31/22 08:30 Blood Pressure 171/85 01/31/22 08:30 Pulse Oximetry 94 01/31/22 08:30 MDM - Weakness Medical Decision Making Severe hyperkalemia due to lack of dialysis. Discussed with the patient and have talked to Dr. Mariscal as well as Dr. Landry will admit for hyperkalemia and stage renal disease has been given usual hyperkalemic treatments initially here in the emergency room Dr. Mariscal will be writing orders for dialysis. Medical Records I reviewed the patient's medical records. Lab Data I reviewed the patient's lab results. : 01/31/22 06:22 01/31/22 06:22 Radiology Impressions Chest X-Ray 01/31/22 06:05 IMPRESSION: 1. Right-sided hemodialysis catheter in satisfactory location. No pneumothorax. 2. Trace bibasilar atelectasis or scar. 3. Heart is enlarged but stable when compared to the prior exam. Laboratory Results WBC 8.6 10^3/uL (4.0-10.0) 01/31/22 06:22 RBC 3.78 10^6/uL (4.1-5.3) L 01/31/22 06:22 Hgb 10.6 g/dL (11.7-16.6) L 01/31/22 06:22 Hct 34.2 % (42.0-52.0) L 01/31/22 06:22 MCV 90.5 fl (80-94) 01/31/22 06:22 MCH 28.0 pg (28.0-34.0) 01/31/22 06:22 MCHC 31.0 g/dL (30.0-36.0) 01/31/22 06:22 RDW 17.0 % (12.1-15.1) H 01/31/22 06:22 Plt Count 264 10^3/cmm (130-400) 01/31/22 06:22 MPV 10.3 fL (7.4-10.4) 01/31/22 06:22 Neut % (Auto) 71.4 % 01/31/22 06:22 Lymph % (Auto) 8.1 % 01/31/22 06:22 [place] % (Auto) 11.6 % 01/31/22 06:22 Eos % (Auto) 7.4 % 01/31/22 06:22 Baso % (Auto) 1.1 % 01/31/22 06:22 Neut # (Auto) 6.12 10^3/uL (1.8-7.7) 01/31/22 06:22 Lymph # (Auto) 0.7 10^3/uL (0.8-4.8) L 01/31/22 06:22 [place] # (Auto) 1.0 10^3/uL (0.2-0.9) H 01/31/22 06:22 Eos # (Auto) 0.6 10^3/uL (0.0-0.8) 01/31/22 06:22 Baso # (Auto) 0.1 10^3/uL (0.0-0.1) 01/31/22 06:22 Nucleated RBC % (auto) 0 % 01/31/22 06:22 Nucleated RBCs # 0.0 /100WBC 01/31/22 06:22 Specimen Type Arterial 01/31/22 06:25 Sample Site Radial, right 01/31/22 06:25 ABG pH 7.34 (7.35-7.45) L 01/31/22 06:25 ABG pCO2 46.5 mmHg (35-45) H 01/31/22 06:25 ABG pO2 71.2 mmHg (80.0-100.0) L 01/31/22 06:25 ABG HCO3 24.9 mmol/L (22-26) 01/31/22 06:25 ABG O2 Saturation 92.0 01/31/22 06:25 ABG Base Excess -1.2 mmol/L (-2.0-2.0) 01/31/22 06:25 Jesus Test Pos 01/31/22 06:25 A-a O2 Gradient 2.8 mmHg (5-10) L 01/31/22 06:25 Hematocrit 36.2 % (42-52) L 01/31/22 06:25 Hgb O2 Saturation 90.0 % (95-100) L 01/31/22 06:25 Carboxyhemoglobin 1.8 %THgb (0.4-20.1) 01/31/22 06:25 Methemoglobin 0.5 % (0.4-1.5) 01/31/22 06:25 Total Hemoglobin 11.8 g/dL (14-18) L 01/31/22 06:25 Sodium 140.0 mmol/L (131-143) 01/31/22 06:25 Potassium 7.9 mmol/L (3.5-5.0) H 01/31/22 06:25 Glucose 96.0 mg/dL (70-115) 01/31/22 06:25 Ionized Calcium 1.0 mmol/L (1.1-1.4) L 01/31/22 06:25 O2 Delivery Device Nc 01/31/22 06:25 O2 Liters/Min 2.0 % 01/31/22 06:25 Supervisor Drapery Hanging ID Hensa 01/31/22 06:25 Sodium 137 mmol/L (136-145) 01/31/22 06:22 Potassium 8.5 mmol/L (3.5-5.1) H* 01/31/22 06:22 Chloride 95 mmol/L (98-107) L 01/31/22 06:22 Carbon Dioxide 23 mmol/L (22-29) 01/31/22 06:22 Anion Gap 27.5 (5-19) H 01/31/22 06:22 BUN 80 mg/dL (6-20) H 01/31/22 06:22 Creatinine 7.3 mg/dL (0.7-1.2) H* 01/31/22 06:22 GFR Calculation 7.9 mL/min (90-130) L 01/31/22 06:22 Glucose 94 mg/dL (65-115) 01/31/22 06:22 POC Glucose 77 mg/dL (70-110) 01/31/22 08:52 Calculated Osmolality 308 mOsm/kg (285-295) H 01/31/22 06:22 Lactic Acid 1.1 mmol/L (0.5-2.2) 01/31/22 06:22 Calcium 8.3 mg/dL (8.5-10.5) L 01/31/22 06:22 Total Bilirubin 0.9 mg/dL (0.15-1.2) 01/31/22 06:22 AST 21 U/L (0-40) 01/31/22 06:22 ALT < 5 U/L (0-41) 01/31/22 06:22 Alkaline Phosphatase 206 IU/L (40-130) H 01/31/22 06:22 Troponin T Baseline 649 ng/L (0-15) H* 01/31/22 06:22 Total Protein 8.3 g/dL (6.6-8.7) 01/31/22 06:22 Albumin 3.5 g/dL (3.5-5.2) 01/31/22 06:22 Globulin 4.8 g/dL (1.3-4.6) H 01/31/22 06:22 Serum Ketones Negative (Negative) 01/31/22 06:22 Discharge Plan Discharge Patient Disposition: Admitted As Inpatient Clinical Impression: Hyperkalemia, ESRD (end stage renal disease) on dialysis, Diabetes, COPD (chronic obstructive pulmonary disease), Diabetic foot ulcer Condition: Stable Coding Level of Care Code ED Physiotherapy Practice Manager for Patricia Fwd Exam Detailed
[2022-01-31 06:37] LABS: Basophils # 0.1 10^3/uL (0.0-0.1); Basophils % 1.1 %; Eosinophils # 0.6 10^3/uL (0.0-0.8); Eosinophils % 7.4 %; Hematocrit 34.2 % (42.0-52.0); Hemoglobin 10.6 g/dL (11.7-16.6); Lymphocytes # 0.7 10^3/uL (0.8-4.8); Lymphocytes % 8.1 %; Mean Corpuscular Volume 90.5 fl (80-94); Mean Platelet Volume 10.3 fL (7.4-10.4); Monocytes % 11.6 %; Neutrophils # 6.12 10^3/uL (1.8-7.7); Neutrophils % 71.4 %; Nucleated Red Blood Cells % 0 %; Platelet Count 264 10^3/cmm (130-400); Red Blood Count 3.78 10^6/uL (4.1-5.3); White Blood Count 8.6 10^3/uL (4.0-10.0)
[2022-01-31 06:41] LABS: ABG PCO2 46.5 mmHg (35-45); ABG PH Result 7.34 (7.35-7.45); Alveolar-Arterial Oxygen Gradi 2.8 mmHg (5-10); Arterial Blood Gas Hematocrit 36.2 % (42-52); Base Excess ABG -1.2 mmol/L (-2.0-2.0); Blood Gas Allen Test Pos; Blood Gas Sample Site Radial, right; Blood Gas Sample Type Arterial; Carboxyhemoglobin 1.8 %THgb (0.4-20.1); HCO3 ABG 24.9 mmol/L (22-26); Methemoglobin 0.5 % (0.4-1.5); Oxygen Device NC; PO2 ABG 71.2 mmHg (80.0-100.0); Potassium Level - ABG 7.9 mmol/L (3.5-5.0); Total Hemoglobin 11.8 g/dL (14-18)
[2022-01-31 06:46] LABS: Ketone (Acetest) Serum Negative (Negative)
[2022-01-31 06:52] LABS: Alanine Aminotransferase < 5 U/L (0-41); Albumin Level 3.5 g/dL (3.5-5.2); Alkaline Phosphatase 206 IU/L (40-130); Anion Gap 27.5 (5-19); Aspartate Amino Transferase 21 U/L (0-40); Blood Urea Nitrogen 80 mg/dL (6-20); Calcium 8.3 mg/dL (8.5-10.5); Carbon Dioxide 23 mmol/L (22-29); Chloride 95 mmol/L (98-107); Globulin 4.8 g/dL (1.3-4.6); Glomerular Filtration Rate 7.9 mL/min (90-130); Glucose 94 mg/dL (65-115); Lactic Sepsis W/Reflex 1.1 mmol/L (0.5-2.2); Osmolality Calculated 308 mOsm/kg (285-295); Sodium 137 mmol/L (136-145); Total Bilirubin 0.9 mg/dL (0.15-1.2); Total Protein 8.3 g/dL (6.6-8.7)
[2022-01-31 07:00] LABS: Potassium 8.5 mmol/L (3.5-5.1)
[2022-01-31 07:01] LABS: Troponin(5th) Baseline 649 ng/L (0-15)
[2022-01-31] MEDS: sodium polystyrene sulfonate 15 gm/60 mL Btl 30 GM PO (07:09)
[2022-01-31] MEDS: calcium chloride 10% Syr 10 mL 2 GM IVP (07:09)
[2022-01-31] MEDS: sodium bicarbonate 8.4% 1 mEq/mL 50mL Syr 100 MEQ IVP (07:09)
[2022-01-31] MEDS: levalbuterol 1.25 mg/3 mL Neb 2.5 MG INHALATION (07:25)
[2022-01-31] MEDS: insulin regular-human 100 units/1 mL 10 UNIT IVP (07:46)
[2022-01-31] MEDS: dextrose 10% 250 ML IV (07:46)
--- NOTE | 2022-01-31 07:54 | PM.HP ---
Providers/Chief Complaint Admitting Physician: Darren Vela MD Primary Care Provider: Sulma Wetzel MD Chief Complaint: weakness History of Present Illness Akil Velasco is a 51 year old male who presented to the ED this morning complaining of weakness, fatigue and mild confusion, which started at approximately 0300, 01/31/2022. He states he missed dialysis treatments due to diarrhea. He states he was scheduled for dialysis today, but was too weak and decided to come to the ED. He denies any fever, chills or headaches. He denies any chest discomfort or pain. He states he is a little short of breath this morning, but this may be due to his COPD and wears 2-3 L NC at home as needed. He complained of diarrhea recently after taking antibiotics for his cellulitis, but does not complain of abdominal discomfort at this time. His last episode of diarrhea was on Sunday at which time he states he has to go to the bathroom every half hour. He does state that he feels his abdomen is firm. He believes his abdomen is firm as his dry weight needs to be last. He believes he accumulates most of the fluid, from his renal failure in his abdomen. He denies any pain on urination. In the ED he was given calcium chloride, nebulized albuterol, and D10 with 10 units of regular insulin. Nephrology has been consulted for dialysis. Review of Systems General: Reports: 10 or more systems reviewed and unremarkable except in HPI and below Const: Reports: fatigue; Denies: fever(s), chills or body aches Eyes: Denies: change in vision or eye discomfort ENMT: Denies: throat pain, odynophagia or mouth pain Card: Reports: swelling of feet/ankles; Denies: chest pain or palpitations Resp: Reports: dyspnea GI: Denies: abdominal pain, nausea, vomiting, pain on defecation, change in stool character, hematochezia or melena : Denies: flank pain, difficulty urinating, dysuria, urinary frequency, urinary urgency or urinary hesitancy Musc: Reports: muscle weakness; Denies: neck pain, back pain, extremity pain, extremity swelling, joint pain or joint swelling Skin/Breast: Reports: pruritus, skin swelling, sores and striae Neuro: Reports: weakness in extremities, difficulty walking and confusion; Denies: headache(s), dizziness, vertigo, Slurred speech present, difficulty communicating thoughts, seizure-like activity or involuntary movements Psych: Denies: anxiety, depression, mood swings or panic attacks Endo: Denies: polyuria, polydipsia, tired all the time, cold intolerance or excessive sweating Ramy/Lymph: Denies: easy bruising All/Imm: Reports: other (rash and tendonitis) Medications/Allergies Home Medications Medication Instructions Recorded Confirmed Last Taken Type aspirin 81 mg tablet,delayed 81 mg PO QAM 10/04/20 11/22/21 11/08/21 06:00 History release isosorbide mononitrate 120 mg 120 mg PO QAM 10/04/20 11/22/21 11/08/21 06:00 History tablet,extended release 24 hr sevelamer carbonate 800 mg tablet See Rx Instructions .ROUTE .COMPLEX 11/11/20 11/22/21 09/06/21 History sodium bicarbonate 650 mg tablet 650 mg PO QA 11/11/20 11/22/21 11/08/21 History carvedilol 25 mg tablet 25 mg PO BID 04/25/21 11/22/21 11/08/21 06:00 History vit B,C-folic ac 800 mcg-zinc 12.5 1 tab PO QAM 04/25/21 11/22/21 11/08/21 History mg-selen-D3 2,000 unit-vit E tablet (RenaPlex-D) Wheel Chair #1 ea 08/18/21 11/22/21 Unknown Rx acetaminophen 500 mg tablet 500 - 1,000 mg PO Q6H PRN 08/22/21 11/22/21 Unknown History amlodipine 10 mg tablet 10 mg PO QAM 08/22/21 11/22/21 11/08/21 06:00 History atorvastatin 80 mg tablet 80 mg PO QAM 08/22/21 11/22/21 11/01/21 History brexpiprazole 0.25 mg tablet 0.25 mg PO QAM 08/22/21 11/22/21 10/25/21 History (Rexulti) clonazepam 0.5 mg tablet 0.5 mg PO BID 08/22/21 11/22/21 09/06/21 History gabapentin 300 mg capsule 300 mg PO DAILY PRN 08/22/21 11/22/21 09/06/21 History hydroxyzine pamoate 25 mg capsule 25 mg PO DAILY PRN 08/22/21 11/22/21 Unknown History insulin glargine 100 unit/mL 40 - 60 unit SUBCUT QAM PRN 08/22/21 11/22/21 09/06/21 History subcutaneous solution (Lantus U-100 Insulin) lidocaine-prilocaine 2.5 %-2.5 % 1 applic TOPICAL . DIRECTED 08/22/21 11/22/21 Unknown History topical cream losartan 50 mg tablet 50 mg PO QAM 08/22/21 11/22/21 11/08/21 06:00 History ropinirole 0.25 mg tablet 0.25 mg PO BEDTIME PRN 08/22/21 11/22/21 09/06/21 History sodium zirconium cyclosilicate 5 See Rx Instructions .ROUTE .COMPLEX 08/22/21 11/22/21 09/06/21 History gram oral powder packet ([facility]) trazodone 50 mg tablet 25 mg PO BEDTIME PRN 08/22/21 11/22/21 Unknown History triamcinolone acetonide 0.1 % 1 applic TOPICAL BID PRN 08/22/21 11/22/21 Unknown History topical ointment venlafaxine 150 mg 150 mg PO QAM 09/07/21 11/22/21 11/08/21 History capsule,extended release 24 hr ofloxacin 0.3 % eye drops 2 drp OTIC (EAR) PRN PRN 09/28/21 11/22/21 Unknown History multivitamin 1 tab PO DAILY 11/08/21 11/22/21 Unknown History cefepime 2 gram solution for See Rx Instructions .ROUTE 11/09/21 11/22/21 Unknown Rx injection .COMPLEX #6 ea diazepam 5 mg tablet 5 - 10 mg PO . DIRECTED PRN 11/29/21 Unknown History gentamicin 0.1 % topical ointment 1 applic TOPICAL BID #30 g 01/10/22 Unknown Rx Allergies Allergy/AdvReac Type Severity Reaction Status Date / Time vancomycin Allergy Unknown Rash Verified 11/22/21 09:00 linezolid [From Zyvox] Allergy tendonitis Verified 11/22/21 09:00 ciprofloxacin [From Cipro] AdvReac Severe Tendonitis Verified 11/22/21 09:00 PFSH Acute PFSH: Medical History Acute and chronic respiratory failure with hypercapnia Anemia BMI 50.0-59.9, adult Cardiac arrest (~07/2020) when had covid CHF (congestive heart failure), NYHA class III Chronic respiratory failure with hypoxia and hypercapnia Chronic venous insufficiency COPD (chronic obstructive pulmonary disease) COPD (chronic obstructive pulmonary disease) Diabetes Diabetic foot ulcers Diabetic ulcer of left foot ESRD (end stage renal disease) on dialysis ESRD on dialysis First degree heart block Fracture of fifth metatarsal bone of left foot Fracture of fourth metatarsal bone of left foot Fracture, thoracic vertebra T7-T8 History of renal cell carcinoma Hypertension Lung nodule Morbid obesity with BMI of 40.0-44.9, adult Neuropathy Non-pressure chronic ulcer of other 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 No recurrence for long-term follow-up with some suspicion on CT scan April 2020. Restrictive lung disease Type 2 diabetes mellitus with diabetic polyneuropathy Urinary retention Surgical History H/O partial nephrectomy bilateral H/O wisdom tooth extraction History of cataract surgery Hx of lymph node excision Family History Father , at age 65 Diabetes Cancer Metastatic prostate cancer to liver Mother , at age 72 Diabetes Grandfather Diabetes Cancer Other Anemia Hyperlipidemia Social History Smoking and tobacco status: never smoked Second hand smoke exposure: Yes Smoking risk assessment/counseling performed?: Yes Alcohol intake: current Alcohol intake frequency: holidays/special occasions only Lives independently: Yes Household members: spouse Housing: House Marital status: service: No Current occupational status: retired Pets and animals: Yes History of recent travel: No Current gender identity: Male Vitals/I&O/Wt Last Vital Signs Temp 97.0 F L 01/31/22 05:54 Pulse 87 01/31/22 07:33 Resp 18 01/31/22 07:27 BP 172/66 01/31/22 06:30 Pulse Ox 94 01/31/22 07:27 Weight last 48 hrs Weight 140.614 kg Physical Exam Narrative: 51 year old, male patient, resting in bed, on 2L NC, no apparent distress. HEENT: atraumatic, normocephalic, normal conjunctiva, no scleral icterus or injection, neck supple, no thyromegaly noted. NEURO: Alert and oriented to person, place, time, with mild confusion (reports confusion putting thoughts together) CV: Regular, regular, normal heart sounds, no murmur noted. PULM/RESP: Symmetric chest rise, no accessory muscle use, clear to auscultation bilaterally. GI: Abdomen firm, nontender, obese, with stretch pyle, and erythema due to swelling. Positive bowel sounds. : Deferred Extremities: Bilateral lower extremity edema. No cyanosis or clubbing. Rubor is noted. Dressings on left foot. No evident drainage or erythema Skin: Warm, dry, wounds noted on left foot. Const: COMMON NORMALS: no acute distress, patient oriented x3 and alert GENERAL APPEARANCE: cooperative and comfortable NUTRITIONAL APPEARANCE: obese HENMT: COMMON NORMALS: normocephalic, atraumatic, hearing grossly normal bilaterally and moist oral mucous membranes HEAD & SCALP: normal to inspection, normocephalic and atraumatic NOSE: Normal external nose present EXTERNAL EAR: Yes external ears normal MOUTH: Normal oral and palatal mucosa present Eye: COMMON NORMALS: conjunctivae normal and no scleral icterus GENERAL EYE: appearance normal, both eyes and all related structures CONJUNCTIVA: Yes conjunctivae normal SCLERA: sclerae normal Neck/C-Spine: COMMON NORMALS: full ROM, supple, no JVD and Thyroid normal GENERAL: Yes normal visual inspection and Yes trachea midline Lymph: LYMPHATIC: no lymphadenopathy noted Chest: COMMONS NORMALS: normal inspection of the chest Resp: COMMON NORMALS: normal respiratory effort, No retractions, No use of accessory muscles and clear to auscultation bilaterally Cardio: COMMON NORMALS: no JVD, regular rate, regular rhythm and No murmurs present (Cardio) GI: INSPECTION: Yes Abdominal wall edema, Yes central obesity, Yes striae and Yes GI erythema present AUSCULTATION: Yes normoactive bowel sounds PALPATION: Yes Firmness to palpation present (GI) and No Tenderness to palpation present (GI) : OTHER: Deferred, patient reports no concerns Back/Pelvis: SACRUM: erythema Extremity: RIGHT LOWER EXTREMITY: Yes lower leg Right lower leg: Yes inspection (cellulitis below the knee) LEFT LOWER EXTREMITY: Yes lower leg Left lower leg: Yes inspection (cellulitis below the knee) and Yes foot & digits Left foot and digits: Yes inspection (Lateral and ventral diabetic foot ulcer) Neuro: COMMON NORMALS: patient oriented x3 and no focal motor deficits SENSORIUM/ORIENTATION: Yes alert, Yes oriented to person, Yes oriented to place and Yes oriented to time SPEECH: speech normal Psych: COMMON NORMALS: mental status grossly normal, Normal thought process present, cooperative, normal affect and speech normal Skin: GENERAL SKIN EXAM: other (Bilateral lower extremity cellulitis) WOUNDS: Yes wounds noted Data : 01/31/22 06:22 01/31/22 06:22 Other Labs: 3 4, PCO2 46, PO2 71 Calcium 8.3 LFTs normal with exception of alk phos of 206 Troponin baseline 649 Albumin 3.5 Urinalysis ordered but pending Serum ketones negative Chest x-ray demonstrates no infiltrate, right hemodialysis catheter. EKG demonstrates normal sinus rhythm, normal axis, nonspecific ST-T wave changes. Intraventricular conduction delay is noted. Micro: Microbiology 01/31/22 07:13 Blood Culture - Preliminary Blood SPECIMEN COLLECTED 01/31/22 07:11 Blood Culture - Preliminary Blood SPECIMEN COLLECTED A&P Assessment and plan (1) ESRD (end stage renal disease) on dialysis: Patient presents to the ED this morning with weakness/lethargy after missing 1 dialysis on Sunday and only a 2-hour treatment on . His last full dialysis treatment was Sunday. He has significant fluid accumulation, and hyperkalemia secondary to missed dialysis Component of metabolic acidosis is also noted. Nebulized albuterol and levalbuterol treatment administered in the ED. 10 units regular insulin with D10 administered in the ED. 2 gm Calcium chloride administered in the ED. 100 mEq sodium bicarbonate admininstered in the ED. 30 gm sodium polystyrene sulfonate administered in ED. At this point the patient's treatment that is needed is emergent dialysis. Nephrology has been consulted to provide this. He has a hemodialysis catheter already in place. This is tunneled. I suspect with his amount of edema he will require several days of dialysis prior to discharge. Admit patient to ICU initially until potassium is stabilized following dialysis And laboratory will be arranged Status: Acute (2) Hyperkalemia: Most likely due to his missed dialysis treatments. Admit to ICU and initiate dialysis. Status: Acute (3) COPD (chronic obstructive pulmonary disease): Patient reports history of COPD with 2-3 L NC PRN at home. Patient reports using BiPAP at home. Nebulized albuterol treatments as needed. Initiate BiPAP as needed. Continue oxygen supplementation as needed. Status: Acute (4) Diabetes: Patient history of diabetes. Diabetic foot ulcer on left foot noted. Sliding scale insulin Will initiate Lantus one half dose when meds are reconciled Status: Acute (5) Chronic ulcer of left foot with fat layer exposed: Continue wound care dressings as per wound care who sees him weekly. Status: Chronic (6) Diarrhea: Stool sample ordered in ED for C. Diff testing, pending collection. Patient gives history of diarrhea that is off and on. He reports he had no stools yesterday. Overall this may be low yield. Status: Acute Plan Multiple other medical problems as listed in PMH Full code, heparin for DVT prophylaxis. Attestations Medical Necessity Statement*: Will need greater than 2 midnight stay in hospital in ICU for hyperkalemia, dialysis, and continued monitoring. 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 Coordinator for Patricia Fwd Exam Comprehensive Diagnoses Hyperkalemia E87.5 COPD (chronic obstructive pulmonary disease) J44.9 ESRD (end stage renal disease) on dialysis N18.6; Z99.2 Diabetes E11.9 Chronic ulcer of left foot with fat layer exposed L97.522 Diarrhea R19.7
--- NOTE | 2022-01-31 08:06 | ECG_ITS ---
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 Measurements Intervals [place] Rate: 89 P: 23 DC: 200 QRS: 123 QRSD: 123 T: -2 QT: 398 QTc: 485 Interpretive Statements SINUS RHYTHM POSSIBLE RIGHT VENTRICULAR HYPERTROPHY [SOME/ALL OF: PROMINENT R IN V1, LATE TRANSITION, RAD, JEROME, SSS] SEPTAL MYOCARDIAL INFARCTION , PROBABLY OLD [40+ ms Q WAVE IN V1/V2] Compared to ECG 01/31/2022 06:00:21 Myocardial infarct finding now present Electronically Signed On 01-31-2022 16:58:32 CDT by Colby Fernandez M.D. [id number]
[2022-01-31 08:53] LABS: Glucose Point of Care 72 mg/dL (70-110)
[2022-01-31 08:55] LABS: Glucose Point of Care 77 mg/dL (70-110)
--- NOTE | 2022-01-31 09:26 | P.CONIM_ITS ---
Providers/Reason For Consult Consulting Physician/Specialty*: Nephrology Reason for Consult*: ESRD mgmt Primary Care Provider: Sulma Wetzel MD History of Present Illness History of Present Illness Thank for consultation, today I reviewed Mr. Velasco with that I know very well from prior hospitalizations. Typically he is on a Sunday, , Sunday treatment schedule. He was dialyzed last Sunday, had a partial session on and skipped on Sunday. He was due to go to dialysis again today, however, felt extremely weak, could not support his body weight decided to come to the hospital. On arrival here he was found to have a potassium of 8.5. He has not received a temporizing cocktail, dialysis orders are in, pending transfer to the ICU for dialysis initiation. Medications/Allergies Home Medications Medication Instructions Recorded Confirmed Last Taken Type aspirin 81 mg tablet,delayed 81 mg PO QAM 10/04/20 11/22/21 11/08/21 06:00 History release isosorbide mononitrate 120 mg 120 mg PO QAM 10/04/20 11/22/21 11/08/21 06:00 History tablet,extended release 24 hr sevelamer carbonate 800 mg tablet See Rx Instructions .ROUTE .COMPLEX 11/11/20 11/22/21 09/06/21 History sodium bicarbonate 650 mg tablet 650 mg PO QAM 11/11/20 11/22/21 11/08/21 History carvedilol 25 mg tablet 25 mg PO BID 04/25/21 11/22/21 11/08/21 06:00 History vit B,C-folic ac 800 mcg-zinc 12.5 1 tab PO QAM 04/25/21 11/22/21 11/08/21 History mg-selen-D3 2,000 unit-vit E tablet (RenaPlex-D) Wheel Chair #1 ea 08/18/21 11/22/21 Unknown Rx acetaminophen 500 mg tablet 500 - 1,000 mg PO Q6H PRN 08/22/21 11/22/21 Unknown History amlodipine 10 mg tablet 10 mg PO QAM 08/22/21 11/22/21 11/08/21 06:00 History atorvastatin 80 mg tablet 80 mg PO QAM 08/22/21 11/22/21 11/01/21 History brexpiprazole 0.25 mg tablet 0.25 mg PO QAM 08/22/21 11/22/21 10/25/21 History (Rexulti) clonazepam 0.5 mg tablet 0.5 mg PO BID 08/22/21 11/22/21 09/06/21 History gabapentin 300 mg capsule 300 mg PO DAILY PRN 08/22/21 11/22/21 09/06/21 History hydroxyzine pamoate 25 mg capsule 25 mg PO DAILY PRN 08/22/21 11/22/21 Unknown History insulin glargine 100 unit/mL 40 - 60 unit SUBCUT QAM PRN 08/22/21 11/22/21 History subcutaneous solution (Lantus U-100 Insulin) lidocaine-prilocaine 2.5 %-2.5 % 1 applic TOPICAL . DIRECTED 08/22/21 11/22/21 Unknown History topical cream losartan 50 mg tablet 50 mg PO QAM 08/22/21 11/22/21 11/08/21 06:00 History ropinirole 0.25 mg tablet 0.25 mg PO BEDTIME PRN 08/22/21 11/22/21 09/06/21 History sodium zirconium cyclosilicate 5 See Rx Instructions .ROUTE .COMPLEX 08/22/21 11/22/21 09/06/21 History gram oral powder packet ([facility]) trazodone 50 mg tablet 25 mg PO BEDTIME PRN 08/22/21 11/22/21 Unknown History triamcinolone acetonide 0.1 % 1 applic TOPICAL BID PRN 08/22/21 11/22/21 Unknown History topical ointment venlafaxine 150 mg 150 mg PO QAM 09/07/21 11/22/21 11/08/21 History capsule,extended release 24 hr ofloxacin 0.3 % eye drops 2 drp OTIC (EAR) PRN PRN 09/28/21 11/22/21 Unknown History multivitamin 1 tab PO DAILY 11/08/21 11/22/21 Unknown History cefepime 2 gram solution for See Rx Instructions .ROUTE 11/09/21 11/22/21 Unknown Rx injection .COMPLEX #6 ea diazepam 5 mg tablet 5 - 10 mg PO . DIRECTED PRN 11/29/21 Unknown History gentamicin 0.1 % topical ointment 1 applic TOPICAL BID #30 g 01/10/22 Unknown Rx Allergies Allergy/AdvReac Type Severity Reaction Status Date / Time vancomycin Allergy Unknown Rash Verified 11/22/21 09:00 linezolid [From Zyvox] Allergy tendonitis Verified 11/22/21 09:00 ciprofloxacin [From Cipro] AdvReac Severe Tendonitis Verified 11/22/21 09:00 PFSH Acute PFSH: Medical History Acute and chronic respiratory failure with hypercapnia Anemia BMI 50.0-59.9, adult Cardiac arrest (~07/2020) when had covid CHF (congestive heart failure), NYHA class III Chronic respiratory failure with hypoxia and hypercapnia Chronic venous insufficiency COPD (chronic obstructive pulmonary disease) COPD (chronic obstructive pulmonary disease) Diabetes Diabetic foot ulcers Diabetic ulcer of left foot ESRD (end stage renal disease) on dialysis ESRD on dialysis First degree heart block Fracture of fifth metatarsal bone of left foot Fracture of fourth metatarsal bone of left foot Fracture, thoracic vertebra T7-T8 History of renal cell carcinoma Hypertension Lung nodule Morbid obesity with BMI of 40.0-44.9, adult Neuropathy Non-pressure chronic ulcer of other 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 No recurrence for long-term follow-up with some suspicion on CT scan April 2020. Restrictive lung disease Type 2 diabetes mellitus with diabetic polyneuropathy Urinary retention Surgical History H/O partial nephrectomy bilateral H/O wisdom tooth extraction History of cataract surgery Hx of lymph node excision Family History Father , at age 65 Diabetes Cancer Metastatic prostate cancer to liver Mother , at age 72 Diabetes Grandfather Diabetes Cancer Other Anemia Hyperlipidemia Social History Smoking and tobacco status: never smoked Second hand smoke exposure: Yes Smoking risk assessment/counseling performed?: Yes Alcohol intake: current Alcohol intake frequency: holidays/special occasions only Lives independently: Yes Household members: spouse Housing: House Marital status: service: No Current occupational status: retired Pets and animals: Yes History of recent travel: No Current gender identity: Male Vitals/I&O/Wt Last Vital Signs Temp 97.0 F L 01/31/22 05:54 Pulse 96 01/31/22 08:30 Resp 20 H 01/31/22 08:30 BP 171/85 01/31/22 08:30 Pulse Ox 94 01/31/22 08:30 01/30/22 01/31/22 01/31/22 22:59 06:59 14:59 Intake Total 250 / 250 Balance 250 / 250 Weight last 48 hrs Weight 140.614 kg Physical Exam Narrative: Constitutional: Awake, comfortable HEENT: Wet mucosa, no jvp, non icteric Lungs: Bilaterally clear without discernible wheeze or rales in all lung zones CVS: S1 S2, no murmurs Abdo: Soft, BS ok Ext 4: 2+ edema, peripheral perfusion with no cyanosis Neurological: Grossly non-focal Data : 01/31/22 06:22 01/31/22 06:22 Micro: Microbiology 01/31/22 07:13 Blood Culture - Preliminary Blood SPECIMEN COLLECTED 01/31/22 07:11 Blood Culture - Preliminary Blood SPECIMEN COLLECTED A&P Assessment and plan (1) ESRD (end stage renal disease) on dialysis: Status: Acute Plan 1. ESRD Dialysis today as soon as possible, 2K bath, [id number]-8-8 L, 3-1/2 hours. Will evaluate levels tomorrow otherwise continue TTS schedule Dose medication GFR less than 15 2. Hyperkalemia Being temporized and will definitively managed with dialysis Repeat levels later on this afternoon 3. Hypertension Continue home medication Ultrafiltration with dialysis will help to bring this down No other changes in the meantime 4. Chronic ESRD issues Need to be handled as an outpatient as part of standard monthly management. Continue home medication including Renvela 5. Disposition Okay for discharge after dialysis as long as the potassium has come down. Thank you for consultation, it is a pleasure to follow these cases with you Exam and interview performed with aid of bedside RN using telemedicine Time spent 20 min inc > 50% of time in face to face counseling John Peters MD [facility] [phone] Coding Level of Care Code Acute Thread Tool Grinder Set Up Operator for Chg Fwd Diagnoses ESRD (end stage renal disease) on dialysis N18.6; Z99.2
--- NOTE | 2022-01-31 09:59 | PC.PHAR ---
pt states he takes care of his own medications-pt states his memory care program director told him to stop taking amlodipine 10mg daily (filled 01/26/22 90d/s) and imdur er 120mg daily (filled 12-31-21 30d/s) a few weeks ago pt states unsure if dced or just put on hold -ext med history shows naltrexone 50mg take 25mg qpm filled on 12/01/21 40d/s pt states that was a mix up and not his medication- hydralazine 100mg tid filled 01/26/22 90d/s pt states just takes 100mg qam-pt states he is no longer taking diazepam or clonazepam-pt states he has lantus but hasnt used in months-notes are made in the pharmacy comments-
[2022-01-31 10:01] LABS: Troponin 5 2HR 603.4 ng/L (0-15)
--- NOTE | 2022-01-31 12:06 | ECG_ITS ---
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 Measurements Intervals [place] Rate: 88 P: 32 RI: 181 QRS: 95 QRSD: 102 T: 5 QT: 385 QTc: 468 Interpretive Statements SINUS RHYTHM BORDERLINE RIGHT AXIS DEVIATION [QRS AXIS > 90] LOW QRS VOLTAGE [QRS DEFLECTION < 0.5/1.0 mV IN LIMB/CHEST LEADS] INCOMPLETE RIGHT BUNDLE BRANCH BLOCK [90+ ms QRS DURATION, TERMINAL R IN V1/V2, 40+ ms S IN I/aVL/V4/V5/V6] SEPTAL MYOCARDIAL INFARCTION , PROBABLY OLD [40+ ms Q WAVE IN V1/V2] Compared to ECG 01/31/2022 08:01:41 Low QRS voltage now present Incomplete right bundle-branch block now present Myocardial infarct finding still present Electronically Signed On 01-31-2022 16:58:58 CDT by Colby Fernandez M.D. [id number]
[2022-01-31 13:19] LABS: Glucose Point of Care 79 mg/dL (70-110)
[2022-01-31 13:29] LABS: Troponin 5 6HR 636.9 ng/L (0-15); Troponin 5 6HR Delta -12.1 ng/L (0-12)
[2022-01-31] MEDS: sevelamer 800 mg Tablet 1600 MG PO ×2 (13:41→18:21)
[2022-01-31] MEDS: heparin 5,000 unit/mL INJ 1 mL 5000 UNIT SUBCUT ×2 (13:42→22:50)
[2022-01-31] MEDS: pantoprazole DR 40 mg Tablet PO (13:42)
[2022-01-31] MEDS: HYDROcodone-acetaminophen 5-325 mg Tablet 1 TAB PO (13:52)
--- NOTE | 2022-01-31 15:12 | PC.NURSE ---
Patient was admitted to ICU and dialysis started. Patient has reported pain in hips from edema and received one hydro. Attempted to urinate but was unable. Patient reports difficulty voiding at home and often does in the shower.
[2022-01-31 15:29] LABS: Potassium 5.9 mmol/L (3.5-5.1)
[2022-01-31] MEDS: heparin, porcine 1,000 unit/mL INJ 10 mL 10000 UNIT HE (16:11)
[2022-01-31 18:13] LABS: Glucose Point of Care 83 mg/dL (70-110)
[2022-01-31] MEDS: sodium polystyrene sulfonate 15 gm/60 mL Btl PO (18:19)
[2022-01-31] MEDS: carvedilol 25 mg Tablet PO (18:20)
[2022-01-31] MEDS: isosorbide mononitrate ER 60 mg Tablet PO (18:21)
[2022-01-31] MEDS: amlodipine 10 mg Tablet PO (18:22)
[2022-01-31] MEDS: trazodone 50 mg Tablet PO (20:19)
[2022-01-31] MEDS: atorvastatin 40 mg Tablet 80 MG PO (20:19)
[2022-01-31] MEDS: insulin lispro 100 unit/1 mL SUBCUT (20:34)
[2022-01-31] MEDS: morphine 4 mg/mL SDV 1 mL 2 MG IVP (20:34)
[2022-01-31] MEDS: insulin glargine 100 units/1 mL 20 UNIT SUBCUT (20:34)
[2022-01-31 20:47] LABS: Glucose Point of Care 159 mg/dL (70-110)
[2022-01-31] MEDS: hyDRALAzine 20 mg/mL INJ 1 mL 10 MG IVP (21:13)
[2022-02-01] VITALS (43 sets, daily range): BP systolic 143–189; BP diastolic 65–114; PULSE 81–92; RESP 5–32; TEMP 36.4–37; O2SAT 88–99; BMI 41.2
--- NOTE | 2022-02-01 | PC.NURSE ---
Blood Pressure Patient's blood pressure 192/84. 10 mg Hydralazine PRN dose administered at 2112, next dose not due until 112. BP ranging from 170-190s systolic, 83-[address] Barclay contacted and notified. No new orders received.
[2022-02-01] MEDS: hyDRALAzine 20 mg/mL INJ 1 mL 10 MG IVP (02:17)
[2022-02-01] MEDS: morphine 4 mg/mL SDV 1 mL 2 MG IVP (03:38)
[2022-02-01 04:27] LABS: Basophils # 0.1 10^3/uL (0.0-0.1); Basophils % 0.8 %; Eosinophils # 0.6 10^3/uL (0.0-0.8); Eosinophils % 6.5 %; Hematocrit 30.4 % (42.0-52.0); Hemoglobin 9.1 g/dL (11.7-16.6); Lymphocytes # 0.7 10^3/uL (0.8-4.8); Mean Corpuscular HGB Conc 29.9 g/dL (30.0-36.0); Mean Corpuscular Hemoglobin 28.3 pg (28.0-34.0); Mean Corpuscular Volume 94.4 fl (80-94); Mean Platelet Volume 10.5 fL (7.4-10.4); Monocytes # 0.9 10^3/uL (0.2-0.9); Monocytes % 10.7 %; Neutrophils # 6.43 10^3/uL (1.8-7.7); Neutrophils % 73.5 %; Nucleated Red Blood Cells % 0 %; Platelet Count 220 10^3/cmm (130-400); Red Blood Count 3.22 10^6/uL (4.1-5.3); Red Cell Distribution Width 16.9 % (12.1-15.1); White Blood Count 8.8 10^3/uL (4.0-10.0)
[2022-02-01 04:39] LABS: Alanine Aminotransferase < 5 U/L (0-41); Albumin Level 3.1 g/dL (3.5-5.2); Alkaline Phosphatase 181 IU/L (40-130); Anion Gap 20.1 (5-19); Aspartate Amino Transferase 17 U/L (0-40); Blood Urea Nitrogen 57 mg/dL (6-20); Calcium 8.4 mg/dL (8.5-10.5); Carbon Dioxide 26 mmol/L (22-29); Chloride 99 mmol/L (98-107); Globulin 4.3 g/dL (1.3-4.6); Glucose 88 mg/dL (65-115); Osmolality Calculated 303 mOsm/kg (285-295); Potassium 6.1 mmol/L (3.5-5.1); Sodium 139 mmol/L (136-145); Total Bilirubin 0.8 mg/dL (0.15-1.2); Total Protein 7.4 g/dL (6.6-8.7)
[2022-02-01] MEDS: hyDRALAzine 50 mg Tablet 100 MG PO (05:10)
[2022-02-01] MEDS: amlodipine 10 mg Tablet PO (05:10)
[2022-02-01] MEDS: aspirin 81 mg EC Tablet PO (05:10)
[2022-02-01] MEDS: isosorbide mononitrate ER 60 mg Tablet 120 MG PO (05:11)
[2022-02-01] MEDS: venlafaxine ER (24HR) 150 mg Capsule PO (05:11)
--- NOTE | 2022-02-01 05:41 | PC.NURSE ---
Bedside Commode Patient transferred from bed to bedside commode and back two times with walker and 2x assist throughout shift. All vitals remained stable. Patient complained of hip pain after movement but otherwise tolerated activity well. See MAR for pain medication administration.
[2022-02-01 07:37] LABS: Glucose Point of Care 86 mg/dL (70-110)
[2022-02-01] MEDS: sevelamer 800 mg Tablet 1600 MG PO ×2 (08:06→14:15)
[2022-02-01] MEDS: gabapentin 300 mg Capsule PO (08:06)
[2022-02-01] MEDS: pantoprazole DR 40 mg Tablet PO (08:06)
[2022-02-01] MEDS: sodium polystyrene sulfonate 15 gm/60 mL Btl PO (08:06)
[2022-02-01] MEDS: HYDROcodone-acetaminophen 5-325 mg Tablet 1 TAB PO (08:06)
--- NOTE | 2022-02-01 08:50 | PM.PN ---
Subjective Subjective: Mr. Doherty is resting comfortably this morning in his chair in the ICU. He states he feels much better today. He states he is able to move his arms and mobilize with assistance. He states he is not confused anymore. He still feels like he is puffy but also feels that he is doing much better. He states he wants to urinate but is unable to, however, he states that this is a feeling he frequently has after dialysis. He states he has some moderate discomfort in his back and perennial area from from being seated. He denies any fevers, chills, headaches, confusion, or dizziness. Denies any shortness of air, and states that he is on 2 to 3 L of nasal cannula oxygen at home as needed. He denies any abdominal pain or diarrhea. Vitals/I&O/Wt Last Vital Signs Temp 98.1 F 02/01/22 08:00 Pulse 81 02/01/22 08:00 Resp 18 02/01/22 08:00 BP 145/70 02/01/22 08:00 Pulse Ox 97 02/01/22 08:00 01/31/22 02/01/22 02/01/22 22:59 06:59 14:59 Intake Total 418 / 1286 [id number] Output Total 3300 / 3300 Balance -2881 722 / 1292 Weight last 48 hrs Weight 141.8 kg Weight 141.8 kg Weight 140.614 kg Data : 02/01/22 03:49 02/01/22 03:49 Micro: Microbiology 01/31/22 07:13 Blood Culture - Preliminary Blood NEGATIVE TO DATE 01/31/22 07:11 Blood Culture - Preliminary Blood NEGATIVE TO DATE 01/31/22 19:18 C.difficile Toxin B Gene (PCR) - Final Stool Routine Collection Coding Level of Care Code Acute [employer]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
--- NOTE | 2022-02-01 09:21 | PC.NURSE ---
Dr. Vela at bedside. Discussed plan of care with patient. Dr. Vela approved for patient to receive HD on second floor. Plan to discharge home after HD. Patient c/o of hip pain unrelieved with ordered [place]. One time dose of Oxy IR ordered.
[2022-02-01] MEDS: oxyCODONE 5 mg IR Tab/Cap PO (09:27)
--- NOTE | 2022-02-01 09:48 | PM.PN ---
Subjective Subjective: Mr. Velasco feels okay with no specific complaints except some discomfort from edema. He does feel his strength is returning now that his potassium is coming down. No other acute issues. Breathing comfortably Vitals/I&O/Wt Last Vital Signs Temp 98.1 F 02/01/22 08:00 Pulse 86 02/01/22 09:34 Resp 18 02/01/22 09:34 BP 145/70 02/01/22 08:00 Pulse Ox 95 02/01/22 09:34 01/31/22 02/01/22 02/01/22 22:59 06:59 14:59 Intake Total 418 / 1286 2007 300 / 300 Output Total 3300 / 3300 Balance -[id number] 300 / 300 Weight last 48 hrs Weight 141.8 kg Weight 141.8 kg Weight 140.614 kg Physical Exam Narrative: Constitutional: Awake, comfortable HEENT: Wet mucosa, no jvp, non icteric Lungs: Bilaterally clear without discernible wheeze or rales in all lung zones CVS: S1 S2, no murmurs Abdo: Soft, BS ok Ext 4: 2+ edema, peripheral perfusion with no cyanosis Neurological: Grossly non-focal Data : 02/01/22 03:49 02/01/22 03:49 Micro: Microbiology 01/31/22 07:13 Blood Culture - Preliminary Blood NEGATIVE TO DATE 01/31/22 07:11 Blood Culture - Preliminary Blood NEGATIVE TO DATE 01/31/22 19:18 C.difficile Toxin B Gene (PCR) - Final Stool Routine Collection A&P Assessment and plan (1) ESRD (end stage renal disease) on dialysis: Status: Acute Plan 1. ESRD Dialysis today then continue TTS schedule Dose medication GFR less than 15 2. Hyperkalemia Came down but still high DC ARB in case this is contributing Dialysis again today Lokelma as outpatient is a chronic therapy for him 3. Hypertension Drops with effective dialysis DC ARB 4. Chronic ESRD issues Need to be handled as an outpatient as part of standard monthly management. Continue home medication including Renvela 5. Disposition Okay for discharge after dialysis Thank you for consultation, it is a pleasure to follow these cases with you Exam and interview performed with aid of bedside RN using telemedicine Time spent 20 min inc > 50% of time in face to face counseling John Peters MD [facility] [phone] Attestations Medical Necessity Statement*: eval for ESRD Coding Level of Care Code Acute Clinical Research Spec for g Fwd Diagnoses ESRD (end stage renal disease) on dialysis N18.6; Z99.2
[2022-02-01] MEDS: heparin, porcine 1,000 unit/mL INJ 10 mL HE (11:47)
--- NOTE | 2022-02-01 13:27 | P.DS_ITS ---
Discharge Providers Date of Admission: 01/31/22 10:15 Date of Discharge: February 01, 2022 Attending Provider at Admission: Darren Vela MD Attending Provider at Discharge: Darren Vela MD Primary Care Provider: Sulma Wetzel MD Diagnoses at Discharge Discharge Diagnosis (1) ESRD (end stage renal disease) on dialysis: Status: Acute Reason for Visit Reason for Visit: weakness Hospital Course Hospital Course -year-old presented to the hospital with weakness, fatigue, confusion and edema. He had missed 1 dialysis treatment, and received only a partial treatment on the one before. He had had some loose stools, which she reported concerned him enough he did not come for dialysis. He appeared to be fluid overloaded on admission. He was markedly hyperkalemic. He received temporizing medication for this. Emergent dialysis occurred soon thereafter Following this he was feeling much better. The next day on February 01 potassium was still somewhat high at 6. It was elected to proceed with another round of dialysis. Following this he felt much better, and it was thought he could you be able to be discharged home. He will resume his normal dialysis tomorrow. He will not resume his losartan. This was discussed in detail. He will follow-up with wound care at his regular appointments, nephrology in 3 to 5 days, primary care provider in 3 to 5 days. He was counseled not to miss dialysis in the future. C. difficile was checked while in the hospital, and negative. Physical Exam Narrative: General exam no distress Neck is supple Cardiovascular regular rate and rhythm without murmur Lungs clear Abdomen is soft. Bowel sounds are noted Extremities 1+ edema bilaterally. Discharge Data Studies Completed and Pending Completed Studies During Hospitalization Category Date Time Status XR chest 1V portable [id number] Stat Exams 01/31/22 06:05 Completed Pending at discharge Category Date Time Status Blood Culture Stat Lab 01/31/22 07:13 Results Urinalysis Stat Lab 01/31/22 06:06 Uncollected Radiology Impressions Chest X-Ray 01/31/22 06:05 IMPRESSION: 1. Right-sided hemodialysis catheter in satisfactory location. No pneumothorax. 2. Trace bibasilar atelectasis or scar. 3. Heart is enlarged but stable when compared to the prior exam. Laboratory Results WBC 8.8 10^3/uL (4.0-10.0) 02/01/22 03:49 RBC 3.22 10^6/uL (4.1-5.3) L 02/01/22 03:49 Hgb 9.1 g/dL (11.7-16.6) L 02/01/22 03:49 Hct 30.4 % (42.0-52.0) L 02/01/22 03:49 MCV 94.4 fl (80-94) H 02/01/22 03:49 MCH 28.3 pg (28.0-34.0) 02/01/22 03:49 MCHC 29.9 g/dL (30.0-36.0) L 02/01/22 03:49 RDW 16.9 % (12.1-15.1) H 02/01/22 03:49 Plt Count 220 10^3/cmm (130-400) 02/01/22 03:49 MPV 10.5 fL (7.4-10.4) H 02/01/22 03:49 Neut % (Auto) 73.5 % 02/01/22 03:49 Lymph % (Auto) 8.0 % 02/01/22 03:49 Wilcox % (Auto) 10.7 % 02/01/22 03:49 Eos % (Auto) 6.5 % 02/01/22 03:49 Baso % (Auto) 0.8 % 02/01/22 03:49 Neut # (Auto) 6.43 10^3/uL (1.8-7.7) 02/01/22 03:49 Lymph # (Auto) 0.7 10^3/uL (0.8-4.8) L 02/01/22 03:49 Wilcox # (Auto) 0.9 10^3/uL (0.2-0.9) 02/01/22 03:49 Eos # (Auto) 0.6 10^3/uL (0.0-0.8) 02/01/22 03:49 Baso # (Auto) 0.1 10^3/uL (0.0-0.1) 02/01/22 03:49 Nucleated RBC % (auto) 0 % 02/01/22 03:49 Nucleated RBCs # 0.0 /100WBC 02/01/22 03:49 Specimen Type Arterial 01/31/22 06:25 Sample Site Radial, right 01/31/22 06:25 ABG pH 7.34 (7.35-7.45) L 01/31/22 06:25 ABG pCO2 46.5 mmHg (35-45) H 01/31/22 06:25 ABG pO2 71.2 mmHg (80.0-100.0) L 01/31/22 06:25 ABG HCO3 24.9 mmol/L (22-26) 01/31/22 06:25 ABG O2 Saturation 92.0 01/31/22 06:25 ABG Base Excess -1.2 mmol/L (-2.0-2.0) 01/31/22 06:25 Jesus Test Pos 01/31/22 06:25 A-a O2 Gradient 2.8 mmHg (5-10) L 01/31/22 06:25 Hematocrit 36.2 % (42-52) L 01/31/22 06:25 Hgb O2 Saturation 90.0 % (95-100) L 01/31/22 06:25 Carboxyhemoglobin 1.8 %THgb (0.4-20.1) 01/31/22 06:25 Methemoglobin 0.5 % (0.4-1.5) 01/31/22 06:25 Total Hemoglobin 11.8 g/dL (14-18) L 01/31/22 06:25 Sodium 140.0 mmol/L (131-143) 01/31/22 06:25 Potassium 7.9 mmol/L (3.5-5.0) H 01/31/22 06:25 Glucose 96.0 mg/dL (70-115) 01/31/22 06:25 Ionized Calcium 1.0 mmol/L (1.1-1.4) L 01/31/22 06:25 O2 Delivery Device Nc 01/31/22 06:25 O2 Liters/Min 2.0 % 01/31/22 06:25 Patient Safety Manager ID Hensa 01/31/22 06:25 Sodium 139 mmol/L (136-145) 02/01/22 03:49 Potassium 6.1 mmol/L (3.5-5.1) H 02/01/22 03:49 Chloride 99 mmol/L (98-107) 02/01/22 03:49 Carbon Dioxide 26 mmol/L (22-29) 02/01/22 03:49 Anion Gap 20.1 (5-19) H 02/01/22 03:49 BUN 57 mg/dL (6-20) H 02/01/22 03:49 Creatinine 5.5 mg/dL (0.7-1.2) H 02/01/22 03:49 GFR Calculation 11.0 mL/min (90-130) L 02/01/22 03:49 Glucose 88 mg/dL (65-115) 02/01/22 03:49 POC Glucose 86 mg/dL (70-110) 02/01/22 07:28 Calculated Osmolality 303 mOsm/kg (285-295) H 02/01/22 03:49 Lactic Acid 1.1 mmol/L (0.5-2.2) 01/31/22 06:22 Calcium 8.4 mg/dL (8.5-10.5) L 02/01/22 03:49 Magnesium 2.0 mg/dL (1.7-2.3) 02/01/22 03:49 Total Bilirubin 0.8 mg/dL (0.15-1.2) 02/01/22 03:49 AST 17 U/L (0-40) 02/01/22 03:49 ALT < 5 U/L (0-41) 02/01/22 03:49 Alkaline Phosphatase 181 IU/L (40-130) H 02/01/22 03:49 Troponin T Baseline 649 ng/L (0-15) H* 01/31/22 06:22 Troponin T 120 Minute 603.4 ng/L (0-15) H 01/31/22 09:00 Delta Troponin T -45.6 ABS# (0-10) L 01/31/22 09:00 Troponin T Hi Sens 6Hr 636.9 ng/L (0-15) H 01/31/22 12:34 Troponin T Hi Sens 6Hr Delta -12.1 ng/L (0-12) L 01/31/22 12:34 Total Protein 7.4 g/dL (6.6-8.7) 02/01/22 03:49 Albumin 3.1 g/dL (3.5-5.2) L 02/01/22 03:49 Globulin 4.3 g/dL (1.3-4.6) 02/01/22 03:49 Serum Ketones Negative (Negative) 01/31/22 06:22 Vitals Last Vital Signs Temp 97.5 F L 02/01/22 11:28 Pulse 83 02/01/22 11:28 Resp 18 02/01/22 11:28 BP 148/84 02/01/22 11:28 Pulse Ox 95 02/01/22 09:34 Discharge Plan Discharge Patient Disposition: Home Condition: Stable Prescriptions: Continued (DME) Wheel Chair See Rx Instructions .Route .MEDSUPPLY Qty: 1 0RF Rx Instructions: As directed HOME gentamicin 0.1 % ointment 1 applic topical BID Qty: 30 0RF Rx Instructions: apply to wound bed on the left foot wounds twice per day for 14 days aspirin 81 mg Tablet,Delayed Release (Dr/Ec) 81 mg PO QAM 0RF isosorbide mononitrate 120 mg Tablet Extended Release 24 Hr 120 mg PO QAM 0RF sodium bicarbonate 650 mg tablet 650 mg PO QAM 0RF sevelamer carbonate 800 mg tablet See Rx Instructions .ROUTE .COMPLEX 0RF Rx Instructions: 2 tabs po tid with meals and 1 tab bid with snacks venlafaxine 150 mg capsule,extended release 24hr 150 mg PO QAM 0RF RenaPlex-D 800 mcg-12.5 mg -2,000 unit tablet 1 tab PO QAM 0RF carvedilol 25 mg tablet See Rx Instructions .ROUTE .COMPLEX 0RF Rx Instructions: 25mg po bid as directed (hold am of hd) atorvastatin 80 mg tablet 80 mg PO QAM 0RF insulin glargine [Lantus U-100 Insulin] 100 unit/mL solution 40 - 60 unit SUBCUT QAM PRN (Reason: blood sugar) 0RF trazodone 50 mg tablet 50 mg PO QAM 0RF lidocaine-prilocaine 2.5-2.5 % cream 1 applic topical . DIRECTED 0RF ropinirole 0.25 mg tablet 0.25 mg PO BEDTIME PRN (Reason: Restless Leg(S)) 0RF amlodipine 10 mg tablet 10 mg PO QAM 0RF gabapentin 300 mg capsule 300 mg PO DAILY 0RF hydroxyzine pamoate 25 mg capsule 25 mg PO DAILY PRN (Reason: Itching) 0RF Rexulti 0.25 mg tablet 0.25 mg PO QAM 0RF Lokelma 5 gram powder in packet See Rx Instructions .ROUTE .COMPLEX 0RF Rx Instructions: 1 packet po on mon,wed,fri, sat and sun (non dialysis days) multivitamin Tablet 1 tab PO DAILY 0RF hydrocodone-acetaminophen 5-325 mg tablet 1 tab PO Q6H PRN (Reason: Pain) 0RF torsemide 100 mg tablet 100 mg PO DAILY 0RF hydralazine 100 mg tablet 100 mg PO QAM 0RF Probiotic 1 cap PO DAILY 0RF Discontinued losartan 50 mg tablet 50 mg PO QAM 0RF Discharge Orders: Discharge Order (Routine); Ordered 02/01/22 Ordered By: Darren Vela Referrals: Sulma Wetzel MD [Primary Care Provider] - 4-7 days Discharge Diet: Diabetic Discharge Activity: Increase activity as tolerated Patient Instructions: Opioid Safety Activity Restrictions/Additional Instructions: Renal dialysis diet. Keep regular dialysis follo wup tomorrow. 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 Keep routine wound care follow up Never miss dialysis. Discontinue losartan Discharge Attestations Time Spent in Discharge Care*: greater than 30 min Status at Discharge: Cognitive status at discharge: cognitively intact , Behavioral status at discharge: cooperative , Quality Metrics Clinical Quality Measures [ No reported AMI, CVA or VTE this stay] Coding Level of Care Code Acute Chg FW DC note Diagnoses ESRD (end stage renal disease) on dialysis N18.6; Z99.2
[2022-02-01 14:06] LABS: Glucose Point of Care 90 mg/dL (70-110)
[2022-02-01 14:27] LABS: Add Urine Microscopic? YES; Bilirubin Urine Neg (Negative); Blood Urine Neg (Negative); Glucose Urine UA Norm (Normal); Ketones Urine Negative (Negative); Leukocyte Esterase Urine Negative (Negative); Nitrate Urine Negative (Negative); Protein Urine 3+ (Negative); Urine Appearance Clear (CLEAR); Urine Color Yellow (Yellow); Urobilinogen Urine Norm (Negative); pH Urine 8 (5-7)
[2022-02-01 14:28] LABS: Add Urine Culture? Yes; Bacteria Urine 1+ /hpf; Fine Granular Casts Urine 0-4 /lpf; Hyaline Casts Urine 0-4 /lpf; RBC Urine 0-4 /hpf (0-2); Sulfosalicylic Acid Urine Positive (Negative); WBC Urine 15-25 /hpf (0-5)
--- NOTE | 2022-02-02 01:31 | PC.NURSE ---
Critical Lab Critical blood culture result received from lab: 1/3 bottles positive for rare gram positive cocci in clusters. Dr. Barclay notified; verbal order received to notifiy day charge nurse so the appropriate primary care provider can be alerted of result.
== END 2022-02-01 16:21 | disposition home or self-care (01) | DRG 640 ==
LOC: ER 10:14 → ICU 10:16
PROVIDERS: Internal Medicine Nephrology; Admitting Provider Internal Medicine; Emergency Provider Family Medicine; PCP Internal Medicine; Visit Provider Internal Medicine
DX: E87.5 Hyperkalemia (principal); N18.6 End stage renal disease; Z68.41 Body mass index [BMI] 40.0-44.9, adult; I13.2 Hypertensive heart and chronic kidney disease with heart failure and with stage 5 chronic kidney disease, or end stage renal disease; J96.11 Chronic respiratory failure with hypoxia; D63.1 Anemia in chronic kidney disease; E66.01 Morbid (severe) obesity due to excess calories; I50.9 Heart failure, unspecified; E11.22 Type 2 diabetes mellitus with diabetic chronic kidney disease; Z99.2 Dependence on renal dialysis; Z91.15 Patient's noncompliance with renal dialysis; E11.42 Type 2 diabetes mellitus with diabetic polyneuropathy; E11.51 Type 2 diabetes mellitus with diabetic peripheral angiopathy without gangrene; J44.9 Chronic obstructive pulmonary disease, unspecified; Z85.528 Personal history of other malignant neoplasm of kidney; G47.33 Obstructive sleep apnea (adult) (pediatric); Z87.01 Personal history of pneumonia (recurrent); Z86.16 Personal history of COVID-19; Z79.899 Other long term (current) drug therapy; Z79.82 Long term (current) use of aspirin; R19.7 Diarrhea, unspecified; E11.621 Type 2 diabetes mellitus with foot ulcer; L97.522 Non-pressure chronic ulcer of other part of left foot with fat layer exposed
CPT/HCPCS: 36415; 36416; 36600; 71045; 80051; 80053; 81001; 82009; 82330; 82805; 82962; 83605; 83735; 84132; 84484; 85025; 87040; 87086; 87493; 90935; 93005; 94640; 96361; 96372; 96374; 96375; 99291; J0360; J1644; J1815; J2270; J3490; J7614; J7799; Q3014

== ENCOUNTER → 2022-02-02 13:43 | Outpatient (BNVA) | payer MEDICARE, MEDICAID, SELFPAY | PROVIDERS: PCP Internal Medicine; Visit Provider Emergency Medicine | DX: E11.621 Type 2 diabetes mellitus with foot ulcer (principal); L97.523 Non-pressure chronic ulcer of other part of left foot with necrosis of muscle; I96 Gangrene, not elsewhere classified; L97.522 Non-pressure chronic ulcer of other part of left foot with fat layer exposed | CPT/HCPCS: 11042; A6212 ×2 ==

== ENCOUNTER → 2022-02-09 13:09 | Outpatient (BNVA) | payer MEDICARE, MEDICAID, SELFPAY | PROVIDERS: PCP Internal Medicine; Visit Provider Nurse Practitioner Family | DX: E11.621 Type 2 diabetes mellitus with foot ulcer (principal); L97.523 Non-pressure chronic ulcer of other part of left foot with necrosis of muscle | CPT/HCPCS: 11042 ==

== ENCOUNTER 2022-02-20 06:38 | Outpatient (CLI) | payer MEDICARE, MEDICAID, SELFPAY ==
--- NOTE | 2022-02-20 | US_ITS ---
WS: [id number] Abdominal ultrasound, limited. History: Evaluate for ascites. Comparison: None. All 4 quadrants are imaged by ultrasound to evaluate for ascites. There is a small amount of peritone al ascites identified. Largest amount in the RIGHT lower quadrant. US/US abdomen lmt fluid [id number] IMPRESSION: Small amount of peritoneal ascites.
== END 2022-02-20 06:39 | disposition home or self-care (01) ==
PROVIDERS: PCP Internal Medicine; Visit Provider Internal Medicine
DX: R18.8 Other ascites (principal)
CPT/HCPCS: 76705

== ENCOUNTER → 2022-02-21 14:52 | Outpatient (BNVA) | payer MEDICARE, MEDICAID, SELFPAY | PROVIDERS: PCP Internal Medicine; Visit Provider Nurse Practitioner Family | DX: E11.621 Type 2 diabetes mellitus with foot ulcer (principal); L97.523 Non-pressure chronic ulcer of other part of left foot with necrosis of muscle; I96 Gangrene, not elsewhere classified | CPT/HCPCS: 11042 ==

== ENCOUNTER → 2022-03-02 13:02 | Outpatient (BNVA) | payer MEDICARE, MEDICAID, SELFPAY | PROVIDERS: PCP Internal Medicine; Visit Provider Nurse Practitioner Family | DX: E11.621 Type 2 diabetes mellitus with foot ulcer (principal); L97.523 Non-pressure chronic ulcer of other part of left foot with necrosis of muscle; I96 Gangrene, not elsewhere classified | CPT/HCPCS: 11042 ==

== ENCOUNTER → 2022-03-09 13:06 | Outpatient (BNVA) | payer MEDICARE, MEDICAID, SELFPAY | PROVIDERS: PCP Internal Medicine; Visit Provider Nurse Practitioner Family | DX: E11.621 Type 2 diabetes mellitus with foot ulcer (principal); L97.523 Non-pressure chronic ulcer of other part of left foot with necrosis of muscle; I96 Gangrene, not elsewhere classified | CPT/HCPCS: 11042 ==

== ENCOUNTER 2022-03-16 12:08 | Inpatient (IN) | payer MEDICARE, MEDICAID, SELFPAY ==
[2022-03-16] VITALS (50 sets, daily range): BP systolic 128–178; BP diastolic 49–131; PULSE 90–103; RESP 13–34; TEMP 36.6–39.1; O2SAT 81–97; BMI 38.1
--- NOTE | 2022-03-16 12:11 | XRR_ITS ---
PROCEDURE INFORMATION: Exam: XR Chest Exam date and time: 03/16/2022 12:21 PM Age: 52 years old Clinical indication: Cough and dyspnea; Additional info: Dyspnea/cough TECHNIQUE: Imaging protocol: Radiologic exam of the chest. Views: 1 view. COMPARISON: CR (CHEST, ) 01/31/2022 6:34 AM FINDINGS: Tubes, catheters and devices: Right IJ approach tunneled dialysis catheter is in satisfactory position, with distal tip in the RA. Lungs: Mildly increased lung markings, suggestive of pulmonary congestion. Pneumonia should be excluded clinically. Pleural spaces: Unremarkable. No pleural effusion. No pneumothorax. Heart/Mediastinum: Stable cardiomediastinal silhouette. Bones/joints: Unremarkable. XR/XR chest 1V portable [id number] IMPRESSION: Imaging findings of pulmonary congestion. Pneumonia should be excluded clinically.
--- NOTE | 2022-03-16 12:48 | XR_ITS ---
WS: [id number] Left foot, 3 views, 03/16/2022 Clinical Data: daibetic foot ulcer, cellulitis Comparison: Left foot, 08/23/2021. Findings: No fractures or dislocations are seen. There is soft tissue swelling over the mid lateral aspect of t he foot. There is irregularity of the base of the left fifth metatarsal but no definite bone destruct ion or erosion is seen. There is an Achilles spur. XR/XR foot LT min 3V* [id number] Impression: 1. Soft tissue swelling over mid lateral foot adjacent to the fifth metatarsal. 2. Reactive bone formation at the base of the left fifth metatarsal unchanged. 3. No definite osteomyelitis.
--- NOTE | 2022-03-16 12:48 | USCV_ITS ---
Rod Akil Age: 52 Gender: M : 1970 Exam Date: 03/16/2022 13:15 Ordering Phys: Jerry Bradford DO Technologist: Pete Parker [place] [facility] [place]: lt leg pain and swelling PROCEDURES: Venous duplex imaging was performed in only the left lower extremity. The following venous structures were evaluated: common femoral vein, profunda vein, proximal portion of the greater saphenous vein, superficial femoral vein, and the popliteal vein. In addition, the posterior tibial and peroneal trunk were evaluated. On the left side, the common femoral, superficial femoral, profunda femoral, popliteal, posterior tibial, greater saphenous veins, and the peroneal trunk were identified and interrogated in the standard fashion. These veins were found to be easily compressible with spontaneous blood flow. No evidence of insufficiency or thrombus noted. FINDINGS: Normal 2-D Doppler and augmentation and compressibility throughout the lower extremity venous structures. Additional imaging through the proximal calf veins also reveals no thrombus. Limited evaluation of the greater saphenous vein is patent with no thrombus.. CONCLUSIONS No evidence of left lower extremity DVT. Osmel Ashraf MD (Electronically Signed) Final Date: 16 March 2022 17:55 S
--- NOTE | 2022-03-16 12:53 | ECG_ITS ---
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 Measurements Intervals [place] Rate: 102 P: 61 VA: 153 QRS: 134 QRSD: 107 T: 2 QT: 358 QTc: 467 Interpretive Statements SINUS TACHYCARDIA POSSIBLE RIGHT VENTRICULAR HYPERTROPHY [SOME/ALL OF: PROMINENT R IN V1, LATE TRANSITION, RAD, JEROME, SSS] Compared to ECG 01/31/2022 13:54:24 Sinus rhythm no longer present Incomplete right bundle-branch block no longer present Myocardial infarct finding no longer present Electronically Signed On 03-16-2022 22:44:28 CDT by Shirin Kendrick M.D. [email or web address]
--- NOTE | 2022-03-16 13:01 | W.ED.GENADLT ---
HPI - General Adult General: Chief complaint: Shortness of Breath/Dyspnea Stated complaint: LOW O2 SATS Time Seen by Provider: 03/16/22 12:11 Source: patient Mode of arrival: wheelchair History of Present Illness: 52-year-old male presents emergency room from the GI lab here in the hospital. He had his usual dialysis run and he was supposed to get a thesis today. When he presented to the GI Lab patient was noted to have a fever as well as increased swelling of his lower extremities. When he arrives here his left lower leg is swollen inflamed and hot to the touch. Patient is confused and disoriented. He has significant amount of edema up above the level of the umbilicus Onset (ago): day(s) Severity: severe Quality: aching Pain Consistency: constant Relieving factors: none Exacerbating factors: none Associated symptoms: Reports confusion, fevers/chills and malaise; Deny chest pain, cough, diaphoresis, decreased appetite, dyspnea, headache(s), nausea, rash, palpitations, seizures, short of breath, syncope, vomiting or weakness Review of Systems Const: Reports: fever(s), chills, fatigue and malaise; Denies: diaphoresis ENMT: Denies: throat pain, ear or mastoid pain, nasal discharge or nasal congestion Card: Denies: chest pain, palpitations or syncope Resp: Denies: dyspnea GI: Denies: nausea or vomiting : Denies: flank pain, dysuria, urinary frequency or urinary urgency Skin/Breast: Denies: rash Neuro: Reports: confusion, behavioral changes and difficulty communicating thoughts; Denies: headache(s) PFS ED PFSH: Medical History Acute and chronic respiratory failure with hypercapnia Anemia BMI 50.0-59.9, adult Cardiac arrest (~07/2020) when had covid CHF (congestive heart failure), NYHA class III Chronic respiratory failure with hypoxia and hypercapnia Chronic venous insufficiency COPD (chronic obstructive pulmonary disease) COPD (chronic obstructive pulmonary disease) Diabetes Diabetic foot ulcers Diabetic ulcer of left foot ESRD (end stage renal disease) on dialysis ESRD on dialysis First degree heart block Fracture of fifth metatarsal bone of left foot Fracture of fourth metatarsal bone of left foot Fracture, thoracic vertebra T7-T8 History of renal cell carcinoma Hypertension Lung nodule Morbid obesity with BMI of 40.0-44.9, adult Neuropathy Non-pressure chronic ulcer of other 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 No recurrence for long-term follow-up with some suspicion on CT scan April 2020. Restrictive lung disease Type 2 diabetes mellitus with diabetic polyneuropathy Urinary retention Surgical History H/O partial nephrectomy bilateral H/O wisdom tooth extraction History of cataract surgery Hx of lymph node excision Family History Father , at age 65 Diabetes Cancer Metastatic prostate cancer to liver Mother , at age 72 Diabetes Grandfather Diabetes Cancer Other Anemia Hyperlipidemia Social History Smoking and tobacco status: never smoked Second hand smoke exposure: Yes Smoking risk assessment/counseling performed?: Yes Alcohol intake: current Alcohol intake frequency: holidays/special occasions only Lives independently: Yes Household members: spouse Housing: House Marital status: service: No Current occupational status: retired Pets and animals: Yes History of recent travel: No Current gender identity: Male Physical Exam Const: GENERAL APPEARANCE: cooperative and comfortable NUTRITIONAL APPEARANCE: obese ORIENTATION/CONSCIOUSNESS: Yes awake and Yes confused HENMT: COMMON NORMALS: normocephalic, atraumatic and hearing grossly normal bilaterally HEAD & SCALP: normocephalic and atraumatic Resp: COMMON NORMALS: normal respiratory effort, No retractions, No use of accessory muscles and clear to auscultation bilaterally AUSCULTATION: clear to auscultation bilaterally Cardio: COMMON NORMALS: regular rate, regular rhythm and No murmurs present (Cardio) RATE: regular rate RHYTHM: regular rhythm GI: INSPECTION: Yes Abdominal wall edema, Yes Anasarca, Yes abdominal distension, Yes visible herniation and Yes Fluid wave present AUSCULTATION: Yes Hypoactive bowel sounds present PALPATION: No Tenderness to palpation present (GI) and No Guarding due to palpation present (GI) PERCUSSION: Fluid wave present OTHER: Anasarca to the level of the umbilicus. Abdomen distended with a fluid wave. Extremity: OTHER: 3 inch round diabetic foot ulcer to lateral aspect of the left foot overlying the fifth metatarsal. No active drainage mucousy eschar present at the base there appears to be some tunneling centrally. Wound was not probed. Skin: COMMON NORMALS: no rashes or lesions noted GENERAL SKIN EXAM: no rashes or lesions noted Course Vital Signs: Vital signs: Vital Signs Temperature 102.4 F H 03/16/22 12:13 Pulse Rate 103 H 03/16/22 12:13 Respiratory Rate 26 H 03/16/22 12:13 Blood Pressure 140/49 03/16/22 12:13 Pulse Oximetry 95 03/16/22 12:13 Oxygen Delivery Me thod 03/16/22 12:13 Oxygen Flow Rate 6 03/16/22 12:13 MDM - General Adult Medical Decision Making Sepsis that is suspect the origin is from diabetic foot ulcer with the redness and erythema. Podiatry to be consulted we will get a culture we will also get a go to do the thoracentesis to get a culture from ascites fluid. He just recently had the fistula revised there are some swelling there is not appear to be purulent I do not think that is a source infection I do think it is his leg. Discussed with Dr. Mitchell the hospitalist will admit orders are written patient lists vancomycin as an allergy however it is just redness think he just had an infusion reaction not a true allergy doctor, has written for vancomycin with also put him on cefepime which previous cultures are shown the Pseudomonas to be susceptible to. Medical Records I reviewed the patient's medical records. Lab Data I reviewed the patient's lab results. : 03/16/22 12:45 03/16/22 12:45 Radiology Impressions Chest X-Ray 03/16/22 12:11 IMPRESSION: Imaging findings of pulmonary congestion. Pneumonia should be excluded clinically. Foot X-Ray 03/16/22 12:48 Impression: 1. Soft tissue swelling over mid lateral foot adjacent to the fifth metatarsal. 2. Reactive bone formation at the base of the left fifth metatarsal unchanged. 3. No definite osteomyelitis. Laboratory Results WBC 8.6 10^3/uL (4.0-10.0) 03/16/22 12:45 RBC 3.94 10^6/uL (4.1-5.3) L 03/16/22 12:45 Hgb 10.7 g/dL (11.7-16.6) L 03/16/22 12:45 Hct 36.2 % (42.0-52.0) L 03/16/22 12:45 MCV 91.9 fl (80-94) 03/16/22 12:45 MCH 27.2 pg (28.0-34.0) L 03/16/22 12:45 MCHC 29.6 g/dL (30.0-36.0) L 03/16/22 12:45 RDW 16.6 % (12.1-15.1) H 03/16/22 12:45 Plt Count 296 10^3/cmm (130-400) 03/16/22 12:45 MPV 11.1 fL (7.4-10.4) H 03/16/22 12:45 Neut % (Auto) 72.7 % 03/16/22 12:45 Lymph % (Auto) 7.9 % 03/16/22 12:45 [place] % (Auto) 11.0 % 03/16/22 12:45 Eos % (Auto) 6.4 % 03/16/22 12:45 Baso % (Auto) 1.4 % 03/16/22 12:45 Neut # (Auto) 6.29 10^3/uL (1.8-7.7) 03/16/22 12:45 Lymph # (Auto) 0.7 10^3/uL (0.8-4.8) L 03/16/22 12:45 [place] # (Auto) 1.0 10^3/uL (0.2-0.9) H 03/16/22 12:45 Eos # (Auto) 0.6 10^3/uL (0.0-0.8) 03/16/22 12:45 Baso # (Auto) 0.1 10^3/uL (0.0-0.1) 03/16/22 12:45 Nucleated RBC % (auto) 0 % 03/16/22 12:45 Nucleated RBCs # 0.0 /100WBC 03/16/22 12:45 ESR 119 mm/hr (0-10) H 03/16/22 12:45 PT 18.00 SECONDS (12.1-14.9) H 03/16/22 12:45 INR 1.45 (0.8-1.2) H 03/16/22 12:45 APTT 40.2 SECONDS (23.9-36.7) H 03/16/22 12:45 Sodium 136 mmol/L (136-145) 03/16/22 12:45 Potassium 5.0 mmol/L (3.5-5.1) 03/16/22 12:45 Chloride 88 mmol/L (98-107) L 03/16/22 12:45 Carbon Dioxide 32 mmol/L (22-29) H 03/16/22 12:45 Anion Gap 21.0 (5-19) H 03/16/22 12:45 BUN 30 mg/dL (6-20) H 03/16/22 12:45 Creatinine 3.4 mg/dL (0.7-1.2) H 03/16/22 12:45 GFR Calculation 19.1 mL/min (90-130) L 03/16/22 12:45 Glucose 100 mg/dL (65-115) 03/16/22 12:45 Estimat Average Glucose 120 03/16/22 12:45 Hemoglobin A1c 5.8 % (4.0-6.0) 03/16/22 12:45 Calculated Osmolality 288 mOsm/kg (285-295) 03/16/22 12:45 Lactic Acid 1.6 mmol/L (0.5-2.2) 03/16/22 12:45 Calcium 8.9 mg/dL (8.5-10.5) 03/16/22 12:45 Total Bilirubin 2.3 mg/dL (0.15-1.2) H 03/16/22 12:45 AST 51 U/L (0-40) H 03/16/22 12:45 ALT 21 U/L (0-41) 03/16/22 12:45 Alkaline Phosphatase 382 U/L (40-130) H 03/16/22 12:45 Lactate Dehydrogenase 425 U/L (135-225) H 03/16/22 12:45 Total Protein 8.0 g/dL (6.6-8.7) 03/16/22 12:45 Albumin 3.6 g/dL (3.5-5.2) 03/16/22 12:45 Globulin 4.4 g/dL (1.3-4.6) 03/16/22 12:45 Procalcitonin 3.15 ng/mL (0-0.5) H 03/16/22 12:45 Discharge Plan Discharge Patient Disposition: Admitted As Inpatient Clinical Impression: Sepsis, ESRD (end stage renal disease) on dialysis, Diabetes, Diabetic foot ulcer, Cellulitis Condition: Stable Prescriptions: No Action (DME) Wheel Chair See Rx Instructions .Route .MEDSUPPLY Qty: 1 0RF Rx Instructions: As directed HOME gentamicin 0.1 % ointment 1 applic topical BID Qty: 30 0RF Rx Instructions: apply to wound bed on the left foot wounds twice per day for 14 days aspirin 81 mg Tablet,Delayed Release (Dr/Ec) 81 mg PO QAM sodium bicarbonate 650 mg tablet 650 mg PO QAM sevelamer carbonate [Renvela] 800 mg tablet See Rx Instructions .ROUTE .COMPLEX Rx Instructions: 2 tabs po tid with meals and 1 tab bid with snacks venlafaxine 150 mg capsule,extended release 24hr 150 mg PO QAM RenaPlex-D 800 mcg-12.5 mg -2,000 unit tablet 1 tab PO QAM carvedilol 25 mg tablet 25 mg PO BID Rx Instructions: 25mg po bid as directed (hold am of hd) atorvastatin 80 mg tablet 80 mg PO QAM trazodone 50 mg tablet 50 mg PO QAM ropinirole 0.25 mg tablet 0.25 mg PO BEDTIME PRN (Reason: Restless Leg(S)) amlodipine 10 mg tablet 10 mg PO QAM gabapentin 300 mg capsule 300 mg PO DAILY hydroxyzine pamoate 25 mg capsule 25 mg PO DAILY PRN (Reason: Itching) Rexulti 0.25 mg tablet 0.25 mg PO QAM Lokelma 5 gram powder in packet See Rx Instructions .ROUTE .COMPLEX Rx Instructions: 1 packet po on mon,wed,fri, sat and sun (non dialysis days) losartan 50 mg tablet 50 mg PO DAILY hydrocodone-acetaminophen 5-325 mg tablet 1 tab PO Q6H PRN (Reason: Pain) torsemide 100 mg tablet 100 mg PO DAILY hydralazine 100 mg tablet 100 mg PO TID Referrals: Rashard,Sulma Humphrey, MD [Primary Care Provider] - Patient Instructions: Opioid Safety Coding Level of Care Code ED [place] for Chg Fwd Exam Detailed
[2022-03-16 13:10] LABS: Basophils # 0.1 10^3/uL (0.0-0.1); Basophils % 1.4 %; Eosinophils # 0.6 10^3/uL (0.0-0.8); Eosinophils % 6.4 %; Hematocrit 36.2 % (42.0-52.0); Hemoglobin 10.7 g/dL (11.7-16.6); Lymphocytes # 0.7 10^3/uL (0.8-4.8); Lymphocytes % 7.9 %; Mean Corpuscular HGB Conc 29.6 g/dL (30.0-36.0); Mean Corpuscular Hemoglobin 27.2 pg (28.0-34.0); Mean Corpuscular Volume 91.9 fl (80-94); Mean Platelet Volume 11.1 fL (7.4-10.4); Neutrophils # 6.29 10^3/uL (1.8-7.7); Neutrophils % 72.7 %; Nucleated Red Blood Cells % 0 %; Platelet Count 296 10^3/cmm (130-400); Red Blood Count 3.94 10^6/uL (4.1-5.3); Red Cell Distribution Width 16.6 % (12.1-15.1); White Blood Count 8.6 10^3/uL (4.0-10.0)
[2022-03-16 13:27] LABS: Lactic Sepsis W/Reflex 1.6 mmol/L (0.5-2.2)
[2022-03-16 13:28] LABS: Albumin Level 3.6 g/dL (3.5-5.2); Alkaline Phosphatase 382 U/L (40-130); Blood Urea Nitrogen 30 mg/dL (6-20); Calcium 8.9 mg/dL (8.5-10.5); Carbon Dioxide 32 mmol/L (22-29); Chloride 88 mmol/L (98-107); Globulin 4.4 g/dL (1.3-4.6); Glomerular Filtration Rate 19.1 mL/min (90-130); Glucose 100 mg/dL (65-115); Osmolality Calculated 288 mOsm/kg (285-295); Sodium 136 mmol/L (136-145); Total Bilirubin 2.3 mg/dL (0.15-1.2)
[2022-03-16 13:31] LABS: Alanine Aminotransferase 21 U/L (0-41); Aspartate Amino Transferase 51 U/L (0-40)
--- NOTE | 2022-03-16 13:39 | US_ITS ---
WS: [id number] ULTRASOUND-GUIDED PARACENTESIS CLINICAL INFORMATION: ascites/sepsis - need culture of fluid COMPARISON: None. Procedure Informed consent: The risks, benefits, and alternatives of the procedure were discussed with the riya ent. Verbal and written consent was obtained. Timeout: A timeout was performed to confirm the correct patient, procedure, and site. Preparation: A suitable skin site was identified. The patient was prepped and draped in usual sterile fashion. Lidocaine 1% was used for local anesthesia. Catheter: 4 Palestinian One-step Yueh catheter. Side: RIGHT Lower quadrant. Fluid Volume: 7000 ml Color: Greenish-yellow DISPOSITION: 50 cc sent for requested diagnostic tests. Complications: None. US/US paracentesis abd w [id number] IMPRESSION: Uncomplicated ultrasound-guided paracentesis. Removal of 7000 cc greenish-yellow fluid
--- NOTE | 2022-03-16 13:40 | PM.HP ---
Providers/Chief Complaint Primary Care Provider: Sulma Wetzel MD Chief Complaint: LOW O2 SATS History of Present Illness Akil Velasco is a 52 year old male carries history of end-stage renal disease, recent creation of AV fistula at [facility] by Dr. Pelaez, presented from hemodialysis center after he spiked fever 102.0. At the end of dialysis session today he started shaking, temperature was checked it was 102. He did not notice any chest pain, headache, blurry vision, or vomiting, endorsing nausea. He does make a little bit of urine. He has been followed up by wound care clinic for left foot ulcer. He has also finished hyperbaric oxygen therapy. DPOA is his and his daughter. Requires 2.5 L of oxygen at baseline since his COVID-19 infection. He has been experiencing a lot of itching related to uremia. In the ER paracentesis has been requested, patient experiencing a lot of abdominal discomfort, venous Doppler was quested rule out DVT, left foot ulcer borders showed macerated edges, will need debridement, venous stasis dermatitis [place] around left AV fistula near his wrist. Follow-up infected Excoriation of skin does not look infected Abdomen is distended ascites positive tender to palpate Review of Systems Const: Reports: fever(s) and chills Eyes: Denies: change in vision ENMT: Denies: throat pain Card: Denies: chest pain Resp: Reports: dyspnea GI: Reports: abdominal pain, nausea, bloating and GI cramping Musc: Reports: extremity swelling, limited range of motion and muscle cramps Skin/Breast: Reports: rash, erythema, skin tenderness, changing lesions, non-healing lesions and lesions Psych: Reports: anxiety Endo: Denies: polyuria Ramy/Lymph: Denies: easy bruising All/Imm: Denies: urticaria Medications/Allergies Home Medications Medication Instructions Recorded Confirmed Last Taken Type aspirin 81 mg tablet,delayed 81 mg PO QAM 10/04/20 03/15/22 11/08/21 06:00 History release isosorbide mononitrate 120 mg 120 mg PO QAM 10/04/20 03/15/22 2 Weeks Ago History tablet,extended release 24 hr ~01/17/22 see pharmacy comment sevelamer carbonate 800 mg tablet See Rx Instructions .Route .COMPLEX 11/11/20 03/15/22 09/06/21 History (Renvela) sodium bicarbonate 650 mg tablet 650 mg PO QAM 11/11/20 03/15/22 11/08/21 History carvedilol 25 mg tablet 25 mg PO BID 04/25/21 03/15/22 11/08/21 06:00 History vit B,C-folic ac 800 mcg-zinc 12.5 1 tab PO QAM 04/25/21 03/15/22 11/08/21 History mg-selen-D3 2,000 unit-vit E tablet (RenaPlex-D) Wheel Chair #1 ea 08/18/21 01/31/22 Unknown Rx amlodipine 10 mg tablet 10 mg PO QAM 08/22/21 03/15/22 2 Weeks Ago History ~01/17/22 see pharmacy comment atorvastatin 80 mg tablet 80 mg PO QAM 08/22/21 03/15/22 11/01/21 History brexpiprazole 0.25 mg tablet 0.25 mg PO QAM 08/22/21 03/15/22 10/25/21 History (Rexulti) gabapentin 300 mg capsule 300 mg PO DAILY 08/22/21 03/15/22 09/06/21 History hydroxyzine pamoate 25 mg capsule 25 mg PO DAILY PRN Itching 08/22/21 03/15/22 Unknown History insulin glargine 100 unit/mL 40 - 60 unit SUBCUT QAM PRN blood 08/22/21 03/15/22 09/06/21 History subcutaneous solution (Lantus sugar U-100 Insulin) lidocaine-prilocaine 2.5 %-2.5 % 1 applic topical . DIRECTED 08/22/21 03/15/22 Unknown History topical cream ropinirole 0.25 mg tablet 0.25 mg PO BEDTIME PRN Restless 08/22/21 03/15/22 09/06/21 History Leg(S) sodium zirconium cyclosilicate 5 See Rx Instructions .Route .COMPLEX 08/22/21 03/15/22 09/06/21 History gram oral powder packet (Lokelma) trazodone 50 mg tablet 50 mg PO QAM 08/22/21 03/15/22 Unknown History venlafaxine 150 mg 150 mg PO QAM 09/07/21 03/15/22 11/08/21 History capsule,extended release 24 hr multivitamin 1 tab PO DAILY 11/08/21 03/15/22 Unknown History gentamicin 0.1 % topical ointment 1 applic topical BID #30 grams 01/10/22 03/15/22 Unknown Rx Probiotic 1 cap PO DAILY 01/31/22 03/15/22 Unknown History hydralazine 100 mg tablet 100 mg PO QAM 01/31/22 03/15/22 Unknown History hydrocodone 5 mg-acetaminophen 325 1 tab PO Q6H PRN Pain 01/31/22 03/15/22 Unknown History mg tablet torsemide 100 mg tablet 100 mg PO DAILY 01/31/22 03/15/22 Unknown History Allergies Allergy/AdvReac Type Severity Reaction Status Date / Time linezolid [From Zyvox] Allergy tendonitis Verified 03/15/22 12:12 ciprofloxacin [From Cipro] AdvReac Severe Tendonitis Verified 03/15/22 12:12 PFSH Acute PFSH: Medical History Acute and chronic respiratory failure with hypercapnia Anemia BMI 50.0-59.9, adult Cardiac arrest (~07/2020) when had covid CHF (congestive heart failure), NYHA class III Chronic respiratory failure with hypoxia and hypercapnia Chronic venous insufficiency COPD (chronic obstructive pulmonary disease) COPD (chronic obstructive pulmonary disease) Diabetes Diabetic foot ulcers Diabetic ulcer of left foot ESRD (end stage renal disease) on dialysis ESRD on dialysis First degree heart block Fracture of fifth metatarsal bone of left foot Fracture of fourth metatarsal bone of left foot Fracture, thoracic vertebra T7-T8 History of renal cell carcinoma Hypertension Lung nodule Morbid obesity with BMI of 40.0-44.9, adult Neuropathy Non-pressure chronic ulcer of other 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 No recurrence for long-term follow-up with some suspicion on CT scan April 2020. Restrictive lung disease Type 2 diabetes mellitus with diabetic polyneuropathy Urinary retention Surgical History H/O partial nephrectomy bilateral H/O wisdom tooth extraction History of cataract surgery Hx of lymph node excision Family History Father , at age 65 Diabetes Cancer Metastatic prostate cancer to liver Mother , at age 72 Diabetes Grandfather Diabetes Cancer Other Anemia Hyperlipidemia Social History Smoking and tobacco status: never smoked Second hand smoke exposure: Yes Smoking risk assessment/counseling performed?: Yes Alcohol intake: current Alcohol intake frequency: holidays/special occasions only Lives independently: Yes Household members: spouse Housing: House Marital status: service: No Current occupational status: retired Pets and animals: Yes History of recent travel: No Current gender identity: Male Vitals/I&O/Wt Last Vital Signs Temp 102.4 F H 03/16/22 12:13 Pulse 103 H 03/16/22 12:13 Resp 26 H 03/16/22 12:13 BP 140/49 03/16/22 12:13 Pulse Ox 95 03/16/22 12:13 O2 Del Method 03/16/22 12:13 O2 Flow Rate 6 03/16/22 12:13 Weight last 48 hrs Weight 131.088 kg Physical Exam Narrative: 52-year-old male who appears more than his stated age Massively distended abdomen Massive ascites Umbilical hernia Caput medusa Venous stasis dermatitis EOMI, PERRLA Nonfocal neuro exam Awake and alert In expiration and [place] intact left wrist no signs of infection Left foot ulcer with tunneling, rounded macerated edges no active purulent drainage Black tissue at the rim of the foot ulcer No signs of vascular compromise Skin is indurated Genital swelling, scrotal edema No signs of meningoencephalitis Patient is awake and alert Data : 03/16/22 12:45 03/16/22 12:45 Micro: Microbiology 03/16/22 13:07 Blood Culture - Preliminary Blood SPECIMEN COLLECTED 03/16/22 13:00 Blood Culture - Preliminary Blood SPECIMEN COLLECTED A&P Assessment and plan (1) COPD (chronic obstructive pulmonary disease): Status: Acute (2) Diabetes: Status: Acute (3) ESRD (end stage renal disease) on dialysis: Status: Acute (4) Diabetic foot ulcer: Status: Acute (5) Chronic ulcer of left foot with fat layer exposed: Status: Chronic (6) Non-healing ulcer of right foot with fat layer exposed: Status: Chronic (7) Febrile: Status: Acute Plan Febrile episodes Signs of sepsis without endorgan damage or leukocytosis Not a candidate of septic bolus because of massive ascites Blood culture obtained Lactic acid is normal Multiple sources for febrile episode: Tunneling of left foot ulcer, rule out SBP, recent AV fistula revision, Skin excoriation Massive ascites Requested paracentesis Start Zosyn, vancomycin can be run at lower rate, rash is not considered allergy rather a side effect Previous culture of foot showed Pseudomonas sensitive to cefepime ESBL E. coli IR to do paracentesis Fit Model consulted for debridement of foot AV fistula site does not look infected Tachycardia related to rebound effect he has not taken his Coreg today Type 2 diabetes, continue moderate sliding scale along insulin Acute on chronic hypoxia Secondary to massive ascites hypoventilation is causing worsening of hypoxia, currently on 3 L At home uses 2.5 to 3 L End-stage renal disease Sunday He has finished 5 hours of dialysis today-is on Sunday Nephro consult tomorrow Patient is full code Consistent carb diet DVT prophylaxis Heparin DPOA and his daughter Attestations Medical Necessity Statement*: Anticipating more than 2 midnights for management of fluid overload, paracentesis, fever Time Spent in Patient Care: 40 Coding Level of Care Code Acute Customer Insight Analyst for g Fwd Diagnoses COPD (chronic obstructive pulmonary disease) J44.9 Diabetes E11.9 ESRD (end stage renal disease) on dialysis N18.6; Z99.2 Diabetic foot ulcer E11.621; L97.509 Chronic ulcer of left foot with fat layer exposed L97.522 Non-healing ulcer of right foot with fat layer exposed L97.512 Febrile R50.9
--- NOTE | 2022-03-16 13:46 | ECG_ITS ---
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 Measurements Intervals [place] Rate: 102 P: 60 VA: 150 QRS: 138 QRSD: 110 T: -26 QT: 364 QTc: 476 Interpretive Statements SINUS TACHYCARDIA POSSIBLE RIGHT VENTRICULAR HYPERTROPHY [SOME/ALL OF: PROMINENT R IN V1, LATE TRANSITION, RAD, JEROME, SSS] MINIMAL ST DEPRESSION [0.025+ mV ST DEPRESSION] ABNORMAL QRS-T ANGLE [QRS-T AXIS DIFFERENCE > 60] Compared to ECG 03/16/2022 12:53:04 ST (T wave) deviation now present Electronically Signed On 03-16-2022 22:44:45 CDT by Shirin Kendrick M.D. [email or web address]
[2022-03-16] MEDS: cefepime 2,000 MG in sodium chloride 0.9% (plus) 50 ML 100 MG IV (14:01)
[2022-03-16 14:35] LABS: Erythrocyte Sedimentation Rate 119 mm/hr (0-10)
[2022-03-16 14:44] LABS: INR 1.45 (0.8-1.2)
[2022-03-16 14:45] LABS: Partial Thromboplastin Time 40.2 SECONDS (23.9-36.7)
[2022-03-16 14:49] LABS: Procalcitonin 3.15 ng/mL (0-0.5)
--- NOTE | 2022-03-16 14:55 | PC.NURSE ---
Patient rarely makes urine, per Dr. Eleno dooley to hold obtaining sample at this time.
[2022-03-16 15:00] LABS: Estmated Average Glucose 120; Hemoglobin A1C 5.8 % (4.0-6.0); Lactate Dehydrogenase 425 U/L (135-225)
--- NOTE | 2022-03-16 15:08 | PC.NURSE ---
PARACENTESIS PERFORMED BY DR. LE TIME BEGAN: 1505 VS 100HR 94O2 24RR 145/79 BP
--- NOTE | 2022-03-16 15:30 | PC.NURSE ---
7L OF FLUID REMOVED FROM PT ABDOMIN.
[2022-03-16] MEDS: HYDROcodone-acetaminophen 5-325 mg Tablet 1 TAB PO (15:59)
[2022-03-16 16:54] LABS: Appearance, Peritoneal Fluid Cloudy (Clear)
[2022-03-16 16:55] LABS: Color, Peritoneal Fluid Yellow (Pale Yellow)
[2022-03-16 17:00] LABS: Mononuclear #, Pertinoneal Fl 0.187 10^3/uL; Polynuclear # Cells, Perit 0.039 10^3/uL
[2022-03-16 17:02] LABS: RBC Pertioneal Fluid 1 10^3/uL; WBC Peritoneal Fluid 226 /uL
[2022-03-16 18:14] LABS: Total Protein Peritoneal Fluid 3.7 g/dL
--- NOTE | 2022-03-16 22:01 | PC.PHAR ---
Vancomycin is dosed at 1500mg IVPB every 24 hours to produce a predicted trough level of 17.33 (population based pharmacokinetic analysis). A trough level has been ordered from the lab to be obtained before the fourth dose to confirm and adjust if needed. The Zosyn is dosed at 3.375gm IVPB every 8 hours on the basis of the creatinine clearance of 36.08.
[2022-03-16] MEDS: carvedilol 25 mg Tablet PO (23:00)
[2022-03-16] MEDS: piperacillin-tazobactam 3.375 GM in sodium chloride 0.9% (plus) 50 ML IV (23:04)
[2022-03-16] MEDS: vancomycin 1,500 MG/300 ML PIGGYBACK 150 MG IV (23:18)
[2022-03-17] VITALS (9 sets, daily range): BP systolic 94–113; BP diastolic 53–67; PULSE 68–90; RESP 16–21; TEMP 36.8–37; O2SAT 90–97
[2022-03-17] MEDS: HYDROcodone-acetaminophen 5-325 mg Tablet 1 TAB PO ×3 (03:27→20:30)
[2022-03-17 04:47] LABS: Basophils # 0.1 10^3/uL (0.0-0.1); Eosinophils # 0.4 10^3/uL (0.0-0.8); Eosinophils % 5.5 %; Hematocrit 34.1 % (42.0-52.0); Hemoglobin 9.8 g/dL (11.7-16.6); Lymphocytes # 0.4 10^3/uL (0.8-4.8); Lymphocytes % 5.1 %; Mean Corpuscular HGB Conc 28.7 g/dL (30.0-36.0); Mean Corpuscular Hemoglobin 27.7 pg (28.0-34.0); Mean Corpuscular Volume 96.3 fl (80-94); Mean Platelet Volume 10.9 fL (7.4-10.4); Monocytes # 1.3 10^3/uL (0.2-0.9); Monocytes % 17.1 %; Neutrophils # 5.53 10^3/uL (1.8-7.7); Neutrophils % 70.7 %; Nucleated Red Blood Cells % 0 %; Platelet Count 241 10^3/cmm (130-400); Red Blood Count 3.54 10^6/uL (4.1-5.3); Red Cell Distribution Width 16.9 % (12.1-15.1); White Blood Count 7.8 10^3/uL (4.0-10.0)
[2022-03-17 05:04] LABS: Alanine Aminotransferase 17 U/L (0-41); Albumin Level 3.1 g/dL (3.5-5.2); Alkaline Phosphatase 350 U/L (40-130); Anion Gap 21.1 (5-19); Aspartate Amino Transferase 40 U/L (0-40); Blood Urea Nitrogen 43 mg/dL (6-20); C Reactive Protein 181.9 mg/L (0.0-4.9); Calcium 8.6 mg/dL (8.5-10.5); Carbon Dioxide 30 mmol/L (22-29); Chloride 92 mmol/L (98-107); Globulin 3.5 g/dL (1.3-4.6); Glucose 137 mg/dL (65-115); Magnesium 2.1 mg/dL (1.7-2.3); Osmolality Calculated 299 mOsm/kg (285-295); Potassium 5.1 mmol/L (3.5-5.1); Sodium 138 mmol/L (136-145); Total Protein 6.6 g/dL (6.6-8.7)
[2022-03-17 06:21] LABS: Glucose Point of Care 145 mg/dL (70-110)
[2022-03-17] MEDS: sodium bicarbonate 650 mg Tablet PO (06:36)
--- NOTE | 2022-03-17 06:36 | P.PN_ITS ---
Subjective Subjective: No fever since his single episode after dialysis at outside facility High CRP and inflammatory markers Patient is due for dialysis tomorrow No signs of SBP total neutrophils 38 Blood pressure on softer side today With informed nephro, appreciate podiatry recommendations Vitals/I&O/Wt Last Vital Signs Temp 98.6 F 03/17/22 04:36 Pulse 80 03/17/22 06:34 Resp 21 H 03/17/22 04:36 BP 94/53 03/17/22 06:34 Pulse Ox 95 03/17/22 04:36 O2 Del Method 03/17/22 00:53 O2 Flow Rate 3 03/17/22 00:53 03/16/22 03/16/22 03/17/22 14:59 22:59 06:59 Intake Total 50 / 50 303.75 / 353.75 Balance 50 / 50 303.75 / 353.75 Weight last 48 hrs Weight 127.148 kg Weight 131.088 kg Physical Exam Narrative: Ascites positive Awake and alert Currently on 3 L S1, S2 Venous stasis dermatitis Left foot ulcer with macerated edges No active purulent drainage Tunneled wound Umbilical hernia Dry skin Venous stasis dermatitis Data : 03/17/22 04:14 03/17/22 04:14 Micro: Microbiology 03/16/22 13:07 Blood Culture - Preliminary Blood SPECIMEN COLLECTED 03/16/22 13:00 Blood Culture - Preliminary Blood SPECIMEN COLLECTED A&P Assessment and plan (1) Cellulitis: Status: Acute (2) Febrile: Status: Acute (3) COPD (chronic obstructive pulmonary disease): Status: Acute (4) Diabetes: Status: Acute (5) Diabetic foot ulcer: Status: Acute (6) ESRD (end stage renal disease) on dialysis: Status: Acute Plan Febrile episode after dialysis at outside facility Sepsis: Resolved No fever in the hospital High inflammatory markers His left foot ulcer is tunneled Plan for debridement today Currently on broad-spectrum antibiotics No signs of SBP, total neutrophils 38 only 17% of the white count of peritoneal fluid No signs of AV fistula infection [place] intact No active cellulitis Skin excoriation without cellulitis X-ray did not show osteomyelitis Reactive changes and swelling noted on x-ray End-stage renal disease TTS Nephro consulted Tachycardia: Improved Chronic hypoxia currently at baseline 3 L Full code Renal diet Attestations Medical Necessity Statement*: Continue medical management Time Spent in Patient Care: 30 Coding Level of Care Code Acute Waste Paper [place] Operator for g Fwd Diagnoses Cellulitis L03.90 Febrile R50.9 COPD (chronic obstructive pulmonary disease) J44.9 Diabetes E11.9 Diabetic foot ulcer E11.621; L97.509 ESRD (end stage renal disease) on dialysis N18.6; Z99.2
[2022-03-17] MEDS: venlafaxine ER (24HR) 150 mg Capsule PO (06:37)
[2022-03-17] MEDS: gabapentin 300 mg Capsule PO (08:11)
[2022-03-17] MEDS: sevelamer 800 mg Tablet 1600 MG PO ×3 (08:11→17:53)
[2022-03-17] MEDS: piperacillin-tazobactam 3.375 GM in sodium chloride 0.9% (plus) 50 ML IV ×2 (08:12→16:25)
[2022-03-17] MEDS: sennosides-docusate Tablet 1 TAB PO (08:12)
--- NOTE | 2022-03-17 09:00 | P.CONIM_ITS ---
Providers/Reason For Consult Consulting Physician/Specialty*: Dr. Chris Johansen Reason for Consult*: Infected left foot diabetic ulcer Attending Physician: Chris Johansen MD Primary Care Provider: Sulma Wetzel MD History of Present Illness History of Present Illness Akil Velasco is a 52 year old male with history of DM2, ESRD on dialysis who presented to the emergency department after spiking a fever of 102 at dialysis. Upon further work-up in the emergency department, patient had distended abdomen with positive ascites. Underwent paracentesis. Podiatry consulted for evaluation of left foot neuropathic ulcer as patient met criteria for sepsis with likely source being foot wound. Patient is seen on regular basis at the wound care center where he has undergone hyperbaric oxygen therapy. Patient states that he last saw wound care provider last week and they told him that there were no worrisome changes to his wound at that time. At bedside this morning, the patient denies any constitutional symptoms. Review of Systems General: Reports: 10 or more systems reviewed and unremarkable except in HPI and below Musc: Reports: joint stiffness Skin/Breast: Reports: non-healing lesions and lesions Neuro: Reports: numbness in extremities Medications/Allergies Home Medications Medication Instructions Recorded Confirmed Last Taken Type aspirin 81 mg tablet,delayed 81 mg PO QAM 10/04/20 03/16/22 03/15/22 History release sevelamer carbonate 800 mg tablet See Rx Instructions .Route .COMPLEX 11/11/20 03/16/22 03/15/22 History (Renvela) sodium bicarbonate 650 mg tablet 650 mg PO QAM 11/11/20 03/16/22 03/15/22 History carvedilol 25 mg tablet 25 mg PO BID 04/25/21 03/16/22 03/15/22 History vit B,C-folic ac 800 mcg-zinc 12.5 1 tab PO QAM 04/25/21 03/16/22 03/15/22 History mg-selen-D3 2,000 unit-vit E tablet (RenaPlex-D) Wheel Chair #1 ea 08/18/21 03/16/22 Unknown Rx amlodipine 10 mg tablet 10 mg PO QAM 08/22/21 03/16/22 03/15/22 History atorvastatin 80 mg tablet 80 mg PO QAM 08/22/21 03/16/22 03/15/22 History brexpiprazole 0.25 mg tablet 0.25 mg PO QAM 08/22/21 03/16/22 03/15/22 History (Rexulti) gabapentin 300 mg capsule 300 mg PO DAILY 08/22/21 03/16/22 03/15/22 History hydroxyzine pamoate 25 mg capsule 25 mg PO DAILY PRN Itching 08/22/21 03/16/22 03/15/22 History ropinirole 0.25 mg tablet 0.25 mg PO BEDTIME PRN Restless 08/22/21 03/16/22 09/06/21 History Leg(S) sodium zirconium cyclosilicate 5 See Rx Instructions .Route .COMPLEX 08/22/21 03/16/22 03/16/22 History gram oral powder packet (Lokelma) trazodone 50 mg tablet 50 mg PO QAM 08/22/21 03/16/22 03/15/22 History venlafaxine 150 mg 150 mg PO QAM 09/07/21 03/16/22 03/15/22 History capsule,extended release 24 hr gentamicin 0.1 % topical ointment 1 applic topical BID #30 grams 01/10/22 03/16/22 03/16/22 Rx hydralazine 100 mg tablet 100 mg PO TID 01/31/22 03/16/22 03/15/22 History hydrocodone 5 mg-acetaminophen 325 1 tab PO Q6H PRN Pain 01/31/22 03/16/22 03/16/22 History mg tablet torsemide 100 mg tablet 100 mg PO DAILY 01/31/22 03/16/22 03/15/22 History losartan 50 mg tablet 50 mg PO DAILY 03/16/22 03/16/22 03/15/22 History Allergies Allergy/AdvReac Type Severity Reaction Status Date / Time linezolid [From Zyvox] Allergy tendonitis Verified 03/16/22 15:10 ciprofloxacin [From Cipro] AdvReac Severe Tendonitis Verified 03/16/22 15:10 Current Medications Generic Name Dose Route Start Last Admin Trade Name Freq PRN Reason Stop Dose Admin Hydrocodone Bitart/Acetaminophen 1 tab 03/16/22 15:54 03/17/22 03:27 Hydrocodone-Acetaminophen 5-325 Mg Tablet PO 1 tab Q6H PRN Administration Pain Amlodipine Besylate 10 mg 03/17/22 06:00 03/17/22 07:02 Amlodipine 10 Mg Tablet PO Not Given QAM [place] Carvedilol 25 mg 03/16/22 21:28 03/16/22 23:00 Carvedilol 25 Mg Tablet PO 25 mg BID [place] Administration Gabapentin 300 mg 03/17/22 09:00 03/17/22 08:11 Gabapentin 300 Mg Capsule PO 300 mg DAILY [place] Administration Hydralazine HCl 100 mg 03/17/22 06:00 03/17/22 07:03 Hydralazine 50 Mg Tablet PO Not Given QAM [place] Piperacillin Sod/Tazobactam 50 mls @ 12.5 mls/hr 03/16/22 23:00 03/17/22 08:12 Sod 3.375 gm/ Sodium Chloride IV 12.5 mls/hr Q8H [place] Administration Protocol As Directed Vancomycin/PEG/NADA/Lysine/Water 1,500 mg in 300 mls @ 150 mls/hr 03/16/22 22:00 03/17/22 02:12 Vancocin IV Infused Q24H [place] Infusion Insulin Human Lispro 0 unit 03/16/22 21:28 03/17/22 07:49 Insulin Lispro 100 Unit/1 Ml SUBCUT Not Given TIDWM [facility] Protocol Non-Formulary Medication 0.25 mg 03/17/22 06:00 03/17/22 06:40 Brexpiprazole [Rexulti] PO Not Given QAM [place] Senna/Docusate Sodium 1 tab 03/17/22 09:00 03/17/22 08:12 Sennosides-Docusate Tablet PO 1 tab DAILY [place] Administration Sevelamer Carbonate 1,600 mg 03/17/22 08:00 03/17/22 08:11 Sevelamer 800 Mg Tablet PO 1,600 mg TIDWM [place] Administration Sevelamer Carbonate 800 mg 03/17/22 09:00 03/17/22 08:26 Sevelamer 800 Mg Tablet PO Not Given BID [place] Sodium Bicarbonate 650 mg 03/17/22 06:00 03/17/22 06:36 Sodium Bicarbonate 650 Mg Tablet PO 650 mg QAM [place] Administration Venlafaxine HCl 150 mg 03/17/22 06:00 03/17/22 06:37 Venlafaxine Er (24hr) 150 Mg Capsule PO 150 mg QAM [place] Administration PFSH Acute PFSH: Medical History Acute and chronic respiratory failure with hypercapnia Anemia BMI 50.0-59.9, adult Cardiac arrest (~07/2020) when had covid CHF (congestive heart failure), NYHA class III Chronic respiratory failure with hypoxia and hypercapnia Chronic venous insufficiency COPD (chronic obstructive pulmonary disease) COPD (chronic obstructive pulmonary disease) Diabetes Diabetic foot ulcers Diabetic ulcer of left foot ESRD (end stage renal disease) on dialysis ESRD on dialysis First degree heart block Fracture of fifth metatarsal bone of left foot Fracture of fourth metatarsal bone of left foot Fracture, thoracic vertebra T7-T8 History of renal cell carcinoma Hypertension Lung nodule Morbid obesity with BMI of 40.0-44.9, adult Neuropathy Non-pressure chronic ulcer of other 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 No recurrence for long-term follow-up with some suspicion on CT scan April 2020. Restrictive lung disease Type 2 diabetes mellitus with diabetic polyneuropathy Urinary retention Surgical History H/O partial nephrectomy bilateral H/O wisdom tooth extraction History of cataract surgery Hx of lymph node excision Family History Father , at age 65 Diabetes Cancer Metastatic prostate cancer to liver Mother , at age 72 Diabetes Grandfather Diabetes Cancer Other Anemia Hyperlipidemia Social History Smoking and tobacco status: never smoked Second hand smoke exposure: Yes Smoking risk assessment/counseling performed?: Yes Alcohol intake: current Alcohol intake frequency: holidays/special occasions only Lives independently: Yes Household members: spouse Housing: House Marital status: service: No Current occupational status: retired Pets and animals: Yes History of recent travel: No Current gender identity: Male Vitals/I&O/Wt Last Vital Signs Temp 98.2 F 03/17/22 07:57 Pulse 89 03/17/22 08:27 Resp 18 03/17/22 08:27 BP 99/55 03/17/22 07:57 Pulse Ox 95 03/17/22 08:27 O2 Del Method 03/17/22 08:27 O2 Flow Rate 3 03/17/22 08:27 03/16/22 03/17/22 03/17/22 22:59 06:59 14:59 Intake Total 850 / 850 350.00 / 1200.00 Balance 850 / 850 350.00 / 1200.00 Weight last 48 hrs Weight 280 lb 5 oz Weight 289 lb Physical Exam Narrative: GENERAL: A&O x 3 VASCULAR: DP/PT pulses palpable 2/4 with CFT intact, <3seconds to distal digits DERMATOLOGICAL: Left hallux traumatic nail avulsion with nailbed exposed. No active drainage or signs of infection. Full-thickness ulceration to lateral aspect of left foot subfifth metatarsal. Left lower extremity is warm to touch Wound #1 Location: Subfifth metatarsal left foot Size: 5.0 x 4.5 x 3.0 cm Undermining: Positive undermining in the 12:00 to 3:00 direction Tracking: Tracks medially 0.5 cm Probe to bone: Positive probe to bone Borders: Severely hyperkeratotic with maceration Base: Mixed fiber granular 50: 50 Drainage: Light serous drainage Malodor: Negative MUSCULOSKELETAL: Varus contracture of hindfoot left lower extremity. No pain with palpation of periwound area. No other gross musculoskeletal deformities noted. NEUROLOGICAL: Neurological sensation to the affected foot and ankle is dimin ished through L4-S1 dermatomes via 10g SWMF, diminished sensation extends proximally to the level of the ankle IMAGIN views of left foot reviewed by me which show osseous changes of the lateral column of the left foot which correlate with the underlying ulceration. No subcutaneous emphysema noted. Osseous changes throughout midfoot appear to have Charcot breakdown like changes versus chronic osteo-. Data : 03/17/22 04:14 03/17/22 04:14 Micro: Microbiology 03/16/22 13:07 Blood Culture - Preliminary Blood SPECIMEN COLLECTED 03/16/22 13:00 Blood Culture - Preliminary Blood SPECIMEN COLLECTED A&P Assessment and plan (1) 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: Status: Acute (2) Sepsis: Status: Acute (3) Cellulitis: Status: Acute (4) Diabetes: Status: Acute (5) ESRD (end stage renal disease) on dialysis: Status: Acute Consult Attestations Medical Necessity Statement: PLAN: -Continue IV antibiotic therapy while inpatient -Imaging reviewed -Negative for DVT -Local wound care Betadine, DSD -Plan for bedside wound debridement today 03/17/2022. Will assess if further OR debridement is necessitated -Monitor cultures. Previous cultures showed E. coli, Pseudomonas with sensitivity to Levaquin Coding Level of Care Code New Pt Acute Residential Appraiser for Chg Fwd Patient Type New Diagnoses 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 Sepsis A41.9 Cellulitis L03.90 Diabetes E11.9 ESRD (end stage renal disease) on dialysis N18.6; Z99.2
--- NOTE | 2022-03-17 10:51 | PC.CHAP ---
Pastoral Care Encounter/Spiritual Assessment Type of Contact [] Declined ten pin bowling centre manager visit [] Patient/Family/Request visit [] Outpatient visit [] Follow-up visit [] Physician referral [] Code/Alert [x] Routine visit [] Staff referral [] Actively dying [] Patient sleeping [] Family support [] [] Out of room [] Palliative care [] [x] Receiving care in room [] Pre-surgical visit [] Trauma [] Long length of stay [] ICU visit [] Other: Relational/Emotional Strength [] Patient feels connected with others/family/visitors/staff [] Distress [] Loneliness/isolation [] Abandonment Spirituality of Patient [] Person of Lizabeth [] Attends Congregational of their Lizabeth [] Believes in Prayer [] Reads Bible or Mormonism materials [] There are Spiritual issues to be addressed Campaign Assistant Interventions [] Prayer [] Active listening [] Non-anxious presence [] Spiritual/emotional support [] Crisis/trauma care [] Spiritual counseling [] Bereavement support [] Provided bereavement packet [] Provided Bible/devotional materials [] Provided toy/stuffed animal, coloring book to patient or family member [] Provided Communion [] Anointing/Alexis [] Salvation [] Completed spiritual assessment [] Other: Impact on Illness or Injury [] Angry [] Fearful [] Anxious [] Often cries [] Exhaustion [] Unable to work [] Unable to attend baptist [] Unable to walk/stand [] Unable to read [] Unable to drive [] Unable to eat/drink [] Unable to sleep [] Unable to be with family [] Patient intubated [] Other: Summary Time spent with patient
[2022-03-17 11:25] LABS: Glucose Point of Care 158 mg/dL (70-110)
--- NOTE | 2022-03-17 12:06 | P.PCN_ITS ---
Procedure/Consent Consent: Additional Consent Information: Left foot wound debridement with curette and tissue culture Procedure Narrative: After written and verbal consent was obtained, attention was directed to the base of the left foot plantar to the 5th metatarsal wehre a full thickness ulceration was noted measuring 5.0 x 4.5 x 3.0 cm with positive probe to bone. The borders were noted to be hyperkeratotic and macerated in nature. Using a 3mm curette, the wound was sharply debrided. Excisional debridement was carried down to the level of fascia. Deep tissue cultures were taken at this level to be sent to micro for ID and sensitivity. The wound was probed and assessed for any abscess of which there was none. The base of the wound was noted to track along the course of the 5th metatarsal proximally and distally 1.0cm. After debridement, pressure was held until hemostasis was achieved. The wound was then dressed with DSD and nicholas bandage. The patient tolerated the procedure well and without complication. *no underlying abscess suspected. Positive probe to bone indicating osteomyelitis. Recommend abx therapy based on culture results. Any further intervention can be managed in the outpatient setting from a podiatry standpoi nt. Will continue to monitor while inpatient.
[2022-03-17] MEDS: insulin lispro 100 unit/1 mL SUBCUT (12:09)
--- NOTE | 2022-03-17 12:34 | P.CONIM_ITS ---
Providers/Reason For Consult Consulting Physician/Specialty*: Yolanda Dumont DO, telenephrology Reason for Consult*: ESRD Requesting Physician: Chris Johansen MD Attending Physician: Chris Johansen MD Primary Care Provider: Sulma Wetzel MD History of Present Illness History of Present Illness Akil Velasco is a 52 year old male presented to ER after dialysis yesterday. + fever. + severe bilateral hip and thigh paint he states is due to edema Had paracentesis yesterday 2.4L, third paracentesis - prior for 7 - 8 L. denies liver disease Had recent revision left forearm AVF. Dialysis via tunneled catheter since November. 5h 3x weekly Review of Systems Narrative: cannot sleep due to pain Musc: Reports: other (pain hips and thighs) Medications/Allergies Home Medications Medication Instructions Recorded Confirmed Last Taken Type aspirin 81 mg tablet,delayed 81 mg PO QAM 10/04/20 03/16/22 03/15/22 History release sevelamer carbonate 800 mg tablet See Rx Instructions .Route .COMPLEX 11/11/20 03/16/22 03/15/22 History (Renvela) sodium bicarbonate 650 mg tablet 650 mg PO QAM 11/11/20 03/16/22 03/15/22 His tory carvedilol 25 mg tablet 25 mg PO BID 04/25/21 03/16/22 03/15/22 History vit B,C-folic ac 800 mcg-zinc 12.5 1 tab PO QAM 04/25/21 03/16/22 03/15/22 History mg-selen-D3 2,000 unit-vit E tablet (RenaPlex-D) Wheel Chair #1 ea 08/18/21 03/16/22 Unknown Rx amlodipine 10 mg tablet 10 mg PO QAM 08/22/21 03/16/22 03/15/22 History atorvastatin 80 mg tablet 80 mg PO QAM 08/22/21 03/16/22 03/15/22 History brexpiprazole 0.25 mg tablet 0.25 mg PO QAM 08/22/21 03/16/22 03/15/22 History (Rexulti) gabapentin 300 mg capsule 300 mg PO DAILY 08/22/21 03/16/22 03/15/22 History hydroxyzine pamoate 25 mg capsule 25 mg PO DAILY PRN Itching 08/22/21 03/16/22 03/15/22 History ropinirole 0.25 mg tablet 0.25 mg PO BEDTIME PRN Restless 08/22/21 03/16/22 09/06/21 History Leg(S) sodium zirconium cyclosilicate 5 See Rx Instructions .Route .COMPLEX 08/22/21 03/16/22 03/16/22 History gram oral powder packet (Lokelma) trazodone 50 mg tablet 50 mg PO QAM 08/22/21 03/16/22 03/15/22 History venlafaxine 150 mg 150 mg PO QAM 09/07/21 03/16/22 03/15/22 History capsule,extended release 24 hr gentamicin 0.1 % topical ointment 1 applic topical BID #30 grams 01/10/22 03/16/22 03/16/22 Rx hydralazine 100 mg tablet 100 mg PO TID 01/31/22 03/16/22 03/15/22 History hydrocodone 5 mg-acetaminophen 325 1 tab PO Q6H PRN Pain 01/31/22 03/16/22 03/16/22 History mg tablet torsemide 100 mg tablet 100 mg PO DAILY 01/31/22 03/16/22 03/15/22 History losartan 50 mg tablet 50 mg PO DAILY 03/16/22 03/16/22 03/15/22 History Allergies Allergy/AdvReac Type Severity Reaction Status Date / Time linezolid [From Zyvox] Allergy tendonitis Verified 03/16/22 15:10 ciprofloxacin [From Cipro] AdvReac Severe Tendonitis Verified 03/16/22 15:10 Current Medications Generic Name Dose Route Start Last Admin Trade Name Freq PRN Reason Stop Dose Admin Hydrocodone Bitart/Acetaminophen 1 tab 03/16/22 15:54 03/17/22 03:27 Hydrocodone-Acetaminophen 5-325 Mg Tablet PO 1 tab Q6H PRN Administration Pain Amlodipine Besylate 10 mg 03/17/22 06:00 03/17/22 07:02 Amlodipine 10 Mg Tablet PO Not Given QAM [facility] Carvedilol 25 mg 03/16/22 21:28 03/17/22 09:30 Carvedilol 25 Mg Tablet PO Not Given BID [place] Gabapentin 300 mg 03/17/22 09:00 03/17/22 08:11 Gabapentin 300 Mg Capsule PO 300 mg DAILY [place] Administration Heparin Sodium (Porcine) 5,000 unit 03/17/22 09:00 03/17/22 09:30 Heparin 5,000 Unit/Ml Inj 1 Ml SUBCUT Not Given Q12H [place] Hydralazine HCl 100 mg 03/17/22 06:00 03/17/22 07:03 Hydralazine 50 Mg Tablet PO Not Given QAM [place] Piperacillin Sod/Tazobactam 50 mls @ 12.5 mls/hr 03/16/22 23:00 03/17/22 08:12 Sod 3.375 gm/ Sodium Chloride IV 12.5 mls/hr Q8H [place] Administration Protocol As Directed Vancomycin/PEG/NADA/Lysine/Water 1,500 mg in 300 mls @ 150 mls/hr 03/16/22 22:00 03/17/22 02:12 Vancocin IV Infused Q24H [place] Infusion Insulin Human Lispro 0 unit 03/16/22 21:28 03/17/22 12:09 Insulin Lispro 100 Unit/1 Ml SUBCUT 4 unit TIDWM [place] Administration Protocol Non-Formulary Medication 0.25 mg 03/17/22 06:00 03/17/22 06:40 Brexpiprazole [Rexulti] PO Not Given QAM [place] Senna/Docusate Sodium 1 tab 03/17/22 09:00 03/17/22 08:12 Sennosides-Docusate Tablet PO 1 tab DAILY [place] Administration Sevelamer Carbonate 1,600 mg 03/17/22 08:00 03/17/22 12:08 Sevelamer 800 Mg Tablet PO 1,600 mg TIDWM [place] Administration Sevelamer Carbonate 800 mg 03/17/22 09:00 03/17/22 08:26 Sevelamer 800 Mg Tablet PO Not Given BID [place] Sodium Bicarbonate 650 mg 03/17/22 06:00 03/17/22 06:36 Sodium Bicarbonate 650 Mg Tablet PO 650 mg QAM [place] Administration Venlafaxine HCl 150 mg 03/17/22 06:00 03/17/22 06:37 Venlafaxine Er (24hr) 150 Mg Capsule PO 150 mg QAM [place] Administration PFSH Acute PFSH: Medical History Acute and chronic respiratory failure with hypercapnia Anemia BMI 50.0-59.9, adult Cardiac arrest (~07/2020) when had covid CHF (congestive heart failure), NYHA class III Chronic respiratory failure with hypoxia and hypercapnia Chronic venous insufficiency COPD (chronic obstructive pulmonary disease) COPD (chronic obstructive pulmonary disease) Diabetes Diabetic foot ulcers Diabetic ulcer of left foot ESRD (end stage renal disease) on dialysis ESRD on dialysis First degree heart block Fracture of fifth metatarsal bone of left foot Fracture of fourth metatarsal bone of left foot Fracture, thoracic vertebra T7-T8 History of renal cell carcinoma Hypertension Lung nodule Morbid obesity with BMI of 40.0-44.9, adult Neuropathy Non-pressure chronic ulcer of other 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 No recurrence for long-term follow-up with some suspicion on CT scan April 2020. Restrictive lung disease Type 2 diabetes mellitus with diabetic polyneuropathy Urinary retention Surgical History H/O partial nephrectomy bilateral H/O wisdom tooth extraction History of cataract surgery Hx of lymph node excision Family History Father , at age 65 Diabetes Cancer Metastatic prostate cancer to liver Mother , at age 72 Diabetes Grandfather Diabetes Cancer Other Anemia Hyperlipidemia Social History Smoking and tobacco status: never smoked Second hand smoke exposure: Yes Smoking risk assessment/counseling performed?: Yes Alcohol intake: current Alcohol intake frequency: holidays/special occasions only Lives independently: Yes Household members: spouse Housing: House Marital status: service: No Current occupational status: retired Pets and animals: Yes History of recent travel: No Current gender identity: Male Vitals/I&O/Wt Last Vital Signs Temp 98.3 F 03/17/22 11:43 Pulse 74 03/17/22 11:43 Resp 18 03/17/22 11:43 BP 100/61 03/17/22 11:43 Pulse Ox 96 03/17/22 11:43 O2 Del Method 03/17/22 11:43 O2 Flow Rate 3 03/17/22 08:27 03/16/22 03/17/22 03/17/22 22:59 06:59 14:59 Intake Total 850 / 850 350.00 / 1200.00 Balance 850 / 850 350.00 / 1200.00 Weight last 48 hrs Weight 127.148 kg Weight 131.088 kg Physical Exam Const: COMMON NORMALS: no acute distress and alert Extremity: NARRATIVE EXTREMITY EXAM: left forearm AVF + thrill per patient OTHER: Anasarca, 3+ edema Neuro: SENSORIUM/ORIENTATION: Yes alert Data : 03/17/22 04:14 03/17/22 04:14 Other Labs: albumin 3.1, bilirubin 2 Micro: Microbiology 03/16/22 13:07 Blood Culture - Preliminary Blood SPECIMEN COLLECTED 03/16/22 13:00 Blood Culture - Preliminary Blood SPECIMEN COLLECTED Echo: Radiologist's impression: 07/19 1. Normal left ventricular size and systolic function. Left ?ventricular ejection fraction is estimated at 55 %. Although no ?diagnostic regional wall motion abnormality could be identified, ?this possibility cannot be completely excluded. Abnormal septal ?motion. ?2. Dilated right ventricle with at least moderately decreased ?systolic function. ?3. Moderate biatrial enlargement. ?4. No significant change when compared to echocardiogram dated ?11/13/20. CXR: Radiologist's impression: pulmonary edema A&P Assessment and plan (1) ESRD (end stage renal disease): Status: Acute Plan 1. ESRD, HD T/Th/S 2. Volume overload; likely right sided heart failure 3.Sepsis: potential sources: foot, peritonitis, line-related 4. Anemia 5. Diabetes 6. Hypertension 7. SYED Plan: Panculture, broad spectrum antibiotics pending results. UF today 3L /2 h as BP tolerates. Next HD tomorrow - 5h Consult Attestations Medical Necessity Statement: see above Time Spent in Patient Care: 16 - 35 minutes Coding Level of Care Code Acute Pipe Fitter Apprentice for Chg Fwd Exam Problem Focused Diagnoses ESRD (end stage renal disease) N18.6
[2022-03-17 15:11] LABS: Hepatitis B Surface Antigen Non-Reactive (Nonreactive); Hepatitis C Virus Antibody Non-Reactive (Nonreactive)
--- NOTE | 2022-03-17 16:23 | PC.NURSE ---
Physician notified regarding patients change in LOC throughout the day. Patient has become jerky with movements and has became increasingly more drowsy. Stat ABG has been ordered and patient will be placed on BiPap shortly after. Nurse will continue to monitor.
[2022-03-17 16:41] LABS: ABG PCO2 52.6 mmHg (35-45); ABG PH Result 7.39 (7.35-7.45); Alveolar-Arterial Oxygen Gradi 11.9 mmHg (5-10); Arterial Blood Gas Hematocrit 28.7 % (42-52); Blood Gas Allen Test Pos; Blood Gas Operator Identificat AMH; Blood Gas Sample Site Radial, right; Blood Gas Sample Type Arterial; Carboxyhemoglobin 2.2 %THgb (0.4-20.1); HCO3 ABG 31.9 mmol/L (22-26); HGB O2 Sat 90.8 % (95-100); Ionized Calcium Level - ABG 1.1 mmol/L (1.1-1.4); Oxygen Device NC; Oxygen Saturation ABG 93.8; PO2 ABG 71.9 mmHg (80.0-100.0); Potassium Level - ABG 4.8 mmol/L (3.5-5.0); Total Hemoglobin 9.4 g/dL (14-18)
[2022-03-17 17:18] LABS: Glucose Point of Care 131 mg/dL (70-110)
[2022-03-17 21:51] LABS: Glucose Point of Care 131 mg/dL (70-110)
[2022-03-17] MEDS: heparin 5,000 unit/mL INJ 1 mL 5000 UNIT SUBCUT (22:30)
[2022-03-17] MEDS: vancomycin 1,500 MG/300 ML PIGGYBACK 150 MG IV (22:30)
[2022-03-18] VITALS (7 sets, daily range): BP systolic 109–119; BP diastolic 68–69; PULSE 66–72; RESP 14–18; TEMP 36.6–37; O2SAT 94–97
[2022-03-18] MEDS: piperacillin-tazobactam 3.375 GM in sodium chloride 0.9% (plus) 50 ML IV ×2 (00:44→10:00)
[2022-03-18] MEDS: HYDROcodone-acetaminophen 5-325 mg Tablet 1 TAB PO (05:13)
[2022-03-18] MEDS: venlafaxine ER (24HR) 150 mg Capsule PO (05:13)
[2022-03-18 05:15] LABS: Basophils # 0.1 10^3/uL (0.0-0.1); Eosinophils # 0.6 10^3/uL (0.0-0.8); Hematocrit 31.8 % (42.0-52.0); Hemoglobin 9.3 g/dL (11.7-16.6); Lymphocytes # 0.7 10^3/uL (0.8-4.8); Lymphocytes % 7.9 %; Mean Corpuscular HGB Conc 29.2 g/dL (30.0-36.0); Mean Corpuscular Hemoglobin 27.1 pg (28.0-34.0); Mean Corpuscular Volume 92.7 fl (80-94); Mean Platelet Volume 10.9 fL (7.4-10.4); Monocytes # 1.5 10^3/uL (0.2-0.9); Monocytes % 16.8 %; Neutrophils # 5.75 10^3/uL (1.8-7.7); Neutrophils % 66.8 %; Nucleated Red Blood Cells % 0 %; Platelet Count 225 10^3/cmm (130-400); Red Blood Count 3.43 10^6/uL (4.1-5.3); Red Cell Distribution Width 16.3 % (12.1-15.1); White Blood Count 8.6 10^3/uL (4.0-10.0)
[2022-03-18 05:39] LABS: Anion Gap 23.5 (5-19); Blood Urea Nitrogen 58 mg/dL (6-20); Calcium 8.4 mg/dL (8.5-10.5); Carbon Dioxide 27 mmol/L (22-29); Chloride 85 mmol/L (98-107); Glomerular Filtration Rate 9.9 mL/min (90-130); Glucose 118 mg/dL (65-115); Osmolality Calculated 287 mOsm/kg (285-295); Potassium 5.5 mmol/L (3.5-5.1); Sodium 130 mmol/L (136-145)
[2022-03-18 06:49] LABS: Glucose Point of Care 122 mg/dL (70-110)
--- NOTE | 2022-03-18 09:55 | P.PN_ITS ---
Subjective Subjective: Patient seen the bedside this morning. Patient states overall he is doing well since his initial presentation. He states that physical therapy did bring his offloading shoe and he has been using it when he does ambulate around the room. He complains about abdominal tenderness and lower through the hips. States he does have a loss of appetite that has been ongoing for couple months. Vitals/I&O/Wt Last Vital Signs Temp 97.8 F 03/18/22 08:00 Pulse 69 03/18/22 08:00 Resp 16 03/18/22 08:00 BP 109/69 03/18/22 08:00 Pulse Ox 96 03/18/22 08:00 O2 Del Method 03/18/22 08:00 O2 Flow Rate 3 03/18/22 07:52 FiO2 30 03/18/22 05:26 03/17/22 03/18/22 03/18/22 22:59 06:59 14:59 Intake Total 1290 / 1340 350 / 1690 Output Total 0 / 0 Balance 1290 / 1340 350 / 1690 Weight last 48 hrs Weight 280 lb 5 oz Weight 289 lb Physical Exam Narrative: GENERAL: A&O x 3 VASCULAR: DP/PT pulses palpable 2/4 with CFT intact, <3seconds to distal digits DERMATOLOGICAL: Left hallux traumatic nail avulsion with nailbed exposed. No active drainage or signs of infection. Full-thickness ulceration to lateral aspect of left foot subfifth metatarsal. Left lower extremity is warm to touch Wound #1 Location: Subfifth metatarsal left foot Size: 5.0 x 4.5 x 3.0 cm Undermining: Positive undermining in the 12:00 to 3:00 direction Tracking: Tracks medially 0.5 cm Probe to bone: Positive probe to bone Borders: Severely hyperkeratotic with maceration Base: Mixed fiber granular 50: 50 Drainage: Light serous drainage Malodor: Negative MUSCULOSKELETAL: Varus contracture of hindfoot left lower extremity. No pain with palpation of periwound area. No other gross musculoskeletal deformities noted. NEUROLOGICAL: Neurological sensation to the affected foot and ankle is diminished through L4-S1 dermatomes via 10g SWMF, diminished sensation extends proximally to the level of the ankle IMAGIN views of left foot reviewed by me which show osseous changes of the lateral column of the left foot which correlate with the underlying ulceration. No subcutaneous emphysema noted. Osseous changes throughout midfoot appear to have Charcot breakdown like changes versus chronic osteo-. Data : 03/18/22 04:54 03/18/22 04:54 Micro: Microbiology 03/16/22 13:07 Blood Culture - Preliminary Blood NEGATIVE TO DATE 03/16/22 13:00 Blood Culture - Preliminary Blood NEGATIVE TO DATE A&P Assessment and plan (1) 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: Status: Acute (2) Sepsis: Status: Acute (3) Cellulitis: Status: Acute (4) Diabetes: Status: Acute (5) ESRD (end stage renal disease) on dialysis: Status: Acute Plan -No plan for further surgical intervention from podiatry standpoint -Monitor cultures -Further care to the left lower extremity will be done on an outpatient basis -Wound care: Betadine, DSD -Minimal weightbearing to left lower extremity. Weight-bear to heel in postoperative shoe. Offloading of shoe was performed at bedside this morning using quarter inch felt pad -Continue IV antibiotic therapy until cultures result -Patient will be okay to discharge from podiatry standpoint once cultures have resulted and final antibiotic recommendations can be made. Patient will follow up with Dr. Jenkins in office. -Podiatry will follow and provide recommendations as needed Attestations 2 Medical Necessity Statement*: See above Coding Level of Care Code Acute Shipfitter Helper for Patricia Fwd Diagnoses 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 Sepsis A41.9 Cellulitis L03.90 Diabetes E11.9 ESRD (end stage renal disease) on dialysis N18.6; Z99.2
[2022-03-18] MEDS: sevelamer 800 mg Tablet 1600 MG PO ×2 (10:00→14:02)
[2022-03-18] MEDS: sennosides-docusate Tablet 1 TAB PO (10:01)
[2022-03-18] MEDS: gabapentin 300 mg Capsule PO (10:01)
--- NOTE | 2022-03-18 11:50 | P.PN_ITS ---
Subjective Subjective: signed off dialysis after 1h 38 today due to back pain Vitals/I&O/Wt Last Vital Signs Temp 97.8 F 03/18/22 08:00 Pulse 69 03/18/22 08:00 Resp 16 03/18/22 08:00 BP 109/69 03/18/22 08:00 Pulse Ox 96 03/18/22 08:00 O2 Del Method 03/18/22 08:00 O2 Flow Rate 3 03/18/22 07:52 FiO2 30 03/18/22 05:26 03/17/22 03/18/22 03/18/22 22:59 06:59 14:59 Intake Total 1290 / 1340 350 / 1690 360 / 360 Output Total 0 / 0 Balance 1290 / 1340 350 / 1690 360 / 360 Weight last 48 hrs Weight 127.148 kg Weight 131.088 kg Data : 03/18/22 04:54 03/18/22 04:54 Micro: Microbiology 03/16/22 13:07 Blood Culture - Preliminary Blood NEGATIVE TO DATE 03/16/22 13:00 Blood Culture - Preliminary Blood NEGATIVE TO DATE A&P Assessment and plan (1) ESRD (end stage renal disease): Status: Acute Plan 1. ESRD, HD T// 2. Volume overload; likely right sided heart failure. Blood pressure decreased with UF yesterday. 3. Diabetic foot infection. Blood cultures negative 4. Anemia: epogen at dialysis 5. Diabetes 6. Hypertension 7. SYED Plan: I had a long discussion with Akil. His last HD was . Only received UF yesterday. HD today 38 - signed AMA. Total UF 3L. He needs to restrict fluids, take potassium binder daily (lokelfl - confirmed he has it) and call his dialysis unit to see if he can be dialyzed on Sunday Attestations Medical Necessity Statement*: per primary service Time Spent in Patient Care: 16 - 35 minutes Coding Level of Care Code Acute Physiotherapy Aide for Patricia Reid Diagnoses ESRD (end stage renal disease) N18.6
--- NOTE | 2022-03-18 12:06 | PM.DCS ---
Discharge Providers Date of Admission: 03/16/22 14:59 Date of Discharge: March 18, 2022 Attending Provider at Admission: Chris Johansen MD Attending Provider at Discharge: Chris Johansen MD Primary Care Provider: Sulma Wetzel MD Diagnoses at Discharge Discharge Diagnosis (1) ESRD (end stage renal disease): Status: Acute Reason for Visit Reason for Visit: LOW O2 SATS Hospital Course Hospital Course 52-year-old male who who was sent from his dialysis center when he spiked fever 102.4 after 5 hours of his dialysis on , please note recently he had AV fistula revision in [place], he still has naomy on his left wrist which were not showing any signs of infection, source of infection was diabetic foot ulcer worsening hence he was started on broad-spectrum antibiotics, podiatry was consulted who did debridement and requested outpatient follow-up, patient gets TTS hemodialysis, nephro was consulted, his blood pressure dropped significantly with ultrafiltration, we have to titrate his medications at the time of discharge I have reduced the dose of hydralazine, continue Coreg and discontinued losartan, amlodipine and torsemide for now Patient will follow up podiatry, he is already established with wound care clinic Previous culture showed Pseudomonas and E. coli I will prescribe him doxycycline for MRSA coverage and Levaquin, I have reviewed his culture and sensitive report He was diagnosed with sepsis at the time of admission however was not a candidate septic bolus because of massive ascites, abdominal paracentesis was done to rule out SBP, his neutrophils were only 38, no signs of SBP, 7 L were removed now mostly contributed towards his hypotension. Physical Exam Narrative: AV fistula Naomy in place no active signs of infection Abdomen soft Umbilical hernia B due to Ascites Extremity Renasys dermatitis Edema present Patient is awake and alert Nonfocal neuro exam Right chest dialysis catheter in place Patient is currently on baseline home requirement of 2 L nasal cannula No audible stridor or wheezing S1, S2 Discharge Data Studies Completed and Pending Completed Studies During Hospitalization Category Date Time Status XR chest 1V portable [id number] Stat Exams 03/16/22 12:11 Completed XR foot LT min 3V* [id number] Stat Exams 03/16/22 12:48 Completed US paracentesis abdomen [US paracentesis abd w [id number]] Ultrasound 03/16/22 13:39 Completed Stat US venous duplex lower extremity LT [CV venous duplex Ultrasound 03/16/22 12:48 [place] [id number]] Stat Pending at discharge Category Date Time Status Blood Culture Stat Lab 03/16/22 13:07 Results Urinalysis Stat Lab 03/16/22 12:19 Uncollected Vancomycin Trough Timed Lab 03/19/22 21:00 Ordered Wound Culture and Gram Stain Stat Lab 03/17/22 12:30 Received Radiology Impressions Chest X-Ray 03/16/22 12:11 IMPRESSION: Imaging findings of pulmonary congestion. Pneumonia should be excluded clinically. Foot X-Ray 03/16/22 12:48 Impression: 1. Soft tissue swelling over mid lateral foot adjacent to the fifth metatarsal. 2. Reactive bone formation at the base of the left fifth metatarsal unchanged. 3. No definite osteomyelitis. Paracentesis Ultrasound 03/16/22 13:39 IMPRESSION: Uncomplicated ultrasound-guided paracentesis. Removal of 7000 cc greenish-yellow fluid Laboratory Results WBC 8.6 10^3/uL (4.0-10.0) 03/18/22 04:54 RBC 3.43 10^6/uL (4.1-5.3) L 03/18/22 04:54 Hgb 9.3 g/dL (11.7-16.6) L 03/18/22 04:54 Hct 31.8 % (42.0-52.0) L 03/18/22 04:54 MCV 92.7 fl (80-94) 03/18/22 04:54 MCH 27.1 pg (28.0-34.0) L 03/18/22 04:54 MCHC 29.2 g/dL (30.0-36.0) L 03/18/22 04:54 RDW 16.3 % (12.1-15.1) H 03/18/22 04:54 Plt Count 225 10^3/cmm (130-400) 03/18/22 04:54 MPV 10.9 fL (7.4-10.4) H 03/18/22 04:54 Neut % (Auto) 66.8 % 03/18/22 04:54 Lymph % (Auto) 7.9 % 03/18/22 04:54 [place] % (Auto) 16.8 % 03/18/22 04:54 Eos % (Auto) 7.0 % 03/18/22 04:54 Baso % (Auto) 1.0 % 03/18/22 04:54 Neut # (Auto) 5.75 10^3/uL (1.8-7.7) 03/18/22 04:54 Lymph # (Auto) 0.7 10^3/uL (0.8-4.8) L 03/18/22 04:54 [place] # (Auto) 1.5 10^3/uL (0.2-0.9) H 03/18/22 04:54 Eos # (Auto) 0.6 10^3/uL (0.0-0.8) 03/18/22 04:54 Baso # (Auto) 0.1 10^3/uL (0.0-0.1) 03/18/22 04:54 Nucleated RBC % (auto) 0 % 03/18/22 04:54 Nucleated RBCs # 0.0 /100WBC 03/18/22 04:54 ESR 119 mm/hr (0-10) H 03/16/22 12:45 PT 18.00 SECONDS (12.1-14.9) H 03/16/22 12:45 INR 1.45 (0.8-1.2) H 03/16/22 12:45 APTT 40.2 SECONDS (23.9-36.7) H 03/16/22 12:45 Specimen Type Arterial 03/17/22 16:29 Sample Site Radial, right 03/17/22 16:29 ABG pH 7.39 (7.35-7.45) 03/17/22 16:29 ABG pCO2 52.6 mmHg (35-45) H 03/17/22 16:29 ABG pO2 71.9 mmHg (80.0-100.0) L 03/17/22 16:29 ABG HCO3 31.9 mmol/L (22-26) H 03/17/22 16:29 ABG O2 Saturation 93.8 03/17/22 16:29 ABG Base Excess 6.0 mmol/L (-2.0-2.0) H 03/17/22 16:29 Jesus Test Pos 03/17/22 16:29 A-a O2 Gradient 11.9 mmHg (5-10) H 03/17/22 16:29 Hematocrit 28.7 % (42-52) L 03/17/22 16:29 Hgb O2 Saturation 90.8 % (95-100) L 03/17/22 16:29 Carboxyhemoglobin 2.2 %THgb (0.4-20.1) 03/17/22 16:29 Methemoglobin 1.0 % (0.4-1.5) 03/17/22 16:29 Total Hemoglobin 9.4 g/dL (14-18) L 03/17/22 16:29 Sodium 133.0 mmol/L (131-143) 03/17/22 16:29 Potassium 4.8 mmol/L (3.5-5.0) 03/17/22 16:29 Glucose 121.0 mg/dL (70-115) H 03/17/22 16:29 Ionized Calcium 1.1 mmol/L (1.1-1.4) 03/17/22 16:29 O2 Delivery Device Nc 03/17/22 16:29 O2 Liters/Min 3.0 % 03/17/22 16:29 FiO2 32.0 % 03/17/22 16:29 Mobile Architect ID [email or web address] 03/17/22 16:29 Sodium 130 mmol/L (136-145) L 03/18/22 04:54 Potassium 5.5 mmol/L (3.5-5.1) H 03/18/22 04:54 Chloride 85 mmol/L (98-107) L 03/18/22 04:54 Carbon Dioxide 27 mmol/L (22-29) 03/18/22 04:54 Anion Gap 23.5 (5-19) H 03/18/22 04:54 BUN 58 mg/dL (6-20) H 03/18/22 04:54 Creatinine 6.0 mg/dL (0.7-1.2) H* 03/18/22 04:54 GFR Calculation 9.9 mL/min (90-130) L 03/18/22 04:54 Glucose 118 mg/dL (65-115) H 03/18/22 04:54 POC Glucose 122 mg/dL (70-110) H 03/18/22 06:25 Estimat Average Glucose 120 03/16/22 12:45 Hemoglobin A1c 5.8 % (4.0-6.0) 03/16/22 12:45 Calculated Osmolality 287 mOsm/kg (285-295) 03/18/22 04:54 Lactic Acid 1.6 mmol/L (0.5-2.2) 03/16/22 12:45 Calcium 8.4 mg/dL (8.5-10.5) L 03/18/22 04:54 Magnesium 2.1 mg/dL (1.7-2.3) 03/17/22 04:14 Total Bilirubin 2.0 mg/dL (0.15-1.2) H 03/17/22 04:14 AST 40 U/L (0-40) 03/17/22 04:14 ALT 17 U/L (0-41) 03/17/22 04:14 Alkaline Phosphatase 350 U/L (40-130) H 03/17/22 04:14 Lactate Dehydrogenase 425 U/L (135-225) H 03/16/22 12:45 C-Reactive Protein 181.9 mg/L (0.0-4.9) H 03/17/22 04:14 Total Protein 6.6 g/dL (6.6-8.7) 03/17/22 04:14 Albumin 3.1 g/dL (3.5-5.2) L 03/17/22 04:14 Globulin 3.5 g/dL (1.3-4.6) 03/17/22 04:14 Procalcitonin 3.15 ng/mL (0-0.5) H 03/16/22 12:45 Peritoneal Color Yellow (Pale Yellow) 03/16/22 15:20 Peritoneal Appearance Cloudy (Clear) 03/16/22 15:20 Peritoneal pH 8.0 03/16/22 15:20 Peritoneal WBC 226 /uL 03/16/22 15:20 Peritoneal RBC 1 10^3/uL 03/16/22 15:20 Periton Mononu # Auto 0.187 10^3/uL 03/16/22 15:20 Mononuclear WBCs % 82.800 % 03/16/22 15:20 Polynuclear WBCs % 17.200 % 03/16/22 15:20 Perit Polynuc WBCs # 0.039 10^3/uL 03/16/22 15:20 Peritoneal Tot Protein 3.7 g/dL 03/16/22 15:20 Peritoneal LDH 116.0 U/L 03/16/22 15:20 Peritoneal Glucose 115.0 mg/dL 03/16/22 15:20 Hep Bs Antigen Non-reactive (Nonreactive) 03/17/22 04:14 Hepatitis C Antibody Non-reactive (Nonreactive) 03/17/22 04:14 Vitals Last Vital Signs Temp 97.8 F 03/18/22 08:00 Pulse 69 03/18/22 08:00 Resp 16 03/18/22 08:00 BP 109/69 03/18/22 08:00 Pulse Ox 96 03/18/22 08:00 O2 Del Method 03/18/22 08:00 O2 Flow Rate 3 03/18/22 07:52 FiO2 30 03/18/22 05:26 Discharge Plan Discharge Patient Disposition: Home Condition: Stable Prescriptions: New doxycycline hyclate 100 mg tablet 100 mg PO BID 10 Days Qty: 20 0RF levofloxacin 750 mg tablet 750 mg PO EVERY OTHER DAY 10 Days Qty: 5 0RF Continued (DME) Wheel Chair See Rx Instructions .Route .MEDSUPPLY Qty: 1 0RF Rx Instructions: As directed HOME gentamicin 0.1 % ointment 1 applic topical BID Qty: 30 0RF Rx Instructions: apply to wound bed on the left foot wounds twice per day for 14 days aspirin 81 mg Tablet,Delayed Release (Dr/Ec) 81 mg PO QAM sodium bicarbonate 650 mg tablet 650 mg PO QAM sevelamer carbonate [Renvela] 800 mg tablet See Rx Instructions .ROUTE .COMPLEX Rx Instructions: 2 tabs po tid with meals and 1 tab bid with snacks venlafaxine 150 mg capsule,extended release 24hr 150 mg PO QAM RenaPlex-D 800 mcg-12.5 mg -2,000 unit tablet 1 tab PO QAM carvedilol 25 mg tablet 25 mg PO BID Rx Instructions: 25mg po bid as directed (hold am of hd) atorvastatin 80 mg tablet 80 mg PO QAM trazodone 50 mg tablet 50 mg PO QAM ropinirole 0.25 mg tablet 0.25 mg PO BEDTIME PRN (Reason: Restless Leg(S)) gabapentin 300 mg capsule 300 mg PO DAILY hydroxyzine pamoate 25 mg capsule 25 mg PO DAILY PRN (Reason: Itching) Rexulti 0.25 mg tablet 0.25 mg PO QAM Lokelma 5 gram powder in packet See Rx Instructions .ROUTE .COMPLEX Rx Instructions: 1 packet po on mon,wed,fri, sat and sun (non dialysis days) hydrocodone-acetaminophen 5-325 mg tablet 1 tab PO Q6H PRN (Reason: Pain) Changed hydralazine 100 mg tablet 10 mg PO TID Qty: 30 0RF Held torsemide 100 mg tablet 100 mg PO DAILY Hold Instructions: Resume on 03/27/22. Discontinued amlodipine 10 mg tablet 10 mg PO QAM losartan 50 mg tablet 50 mg PO DAILY Discharge Orders: Discharge Order (Routine); Ordered 03/18/22 Ordered By: Chris Johansen [facility]: [facility] [Other] Sulma Wetzel MD [Primary Care Provider] - (Please call for an follow-up appointment with Sulma Wetzel in 4 to 7 days. ) Brady Jenkins DPM [Physician] - 4-7 days (Please call for an follow-up appointment in 4 to 7 days. ) [facility], [Staff Physician] - 2 weeks Patient Instructions: Doxycycline (By mouth), Levofloxacin (By mouth), End Stage Kidney Disease (GEN), Opioid Safety Discharge Attestations Time Spent in Discharge Care*: less than 30 min Status at Discharge: Cognitive status at discharge: cognitively intact, Behavioral status at discharge: cooperative, Quality Metrics Clinical Quality Measures [ No reported AMI, CVA or VTE this stay] Coding Level of Care Code Acute Chg FW DC note Diagnoses ESRD (end stage renal disease) N18.6
[2022-03-18 12:20] LABS: Glucose Point of Care 115 mg/dL (70-110)
== END 2022-03-18 15:40 | disposition home or self-care (01) | DRG 623 ==
LOC: ER 15:29 → MEDSURG 19:56
PROVIDERS: Internal Medicine; Admitting Provider Internal Medicine; Emergency Provider Family Medicine; PCP Internal Medicine; Visit Provider Internal Medicine
DX: E11.621 Type 2 diabetes mellitus with foot ulcer (principal); I13.2 Hypertensive heart and chronic kidney disease with heart failure and with stage 5 chronic kidney disease, or end stage renal disease; R18.8 Other ascites; M86.8X7 Other osteomyelitis, ankle and foot; J96.11 Chronic respiratory failure with hypoxia; E11.69 Type 2 diabetes mellitus with other specified complication; N18.6 End stage renal disease; E87.70 Fluid overload, unspecified; E11.22 Type 2 diabetes mellitus with diabetic chronic kidney disease; E11.40 Type 2 diabetes mellitus with diabetic neuropathy, unspecified; E11.51 Type 2 diabetes mellitus with diabetic peripheral angiopathy without gangrene; D63.1 Anemia in chronic kidney disease; J44.9 Chronic obstructive pulmonary disease, unspecified; I50.9 Heart failure, unspecified; G47.33 Obstructive sleep apnea (adult) (pediatric); Z99.2 Dependence on renal dialysis; Z86.16 Personal history of COVID-19; Z99.81 Dependence on supplemental oxygen; Z79.82 Long term (current) use of aspirin; Z90.5 Acquired absence of kidney; Z68.38 Body mass index [BMI] 38.0-38.9, adult; Z85.528 Personal history of other malignant neoplasm of kidney
CPT/HCPCS: 12345; 36415; 36416; 36600; 49083; 71045; 73630; 80048; 80051; 80053; 82330; 82805; 82945; 82962; 83036; 83605; 83615; 83735; 83986; 84145; 84157; 85025; 85610; 85651; 85730; 86140; 86803; 87040; 87070; 87075; 87077; 87186; 87205; 87340; 89050; 93005; 93971; 96365; 96372; 97760; 99285; J0692; J1644; J1815; J2543; J3370; L3260

== ENCOUNTER 2022-03-22 13:52 | Emergency (ER) | payer MEDICARE, MEDICAID, SELFPAY ==
[2022-03-22] VITALS (9 sets, daily range): BP systolic 107–118; BP diastolic 62–76; PULSE 78–90; RESP 16–20; TEMP 36.6–36.7; O2SAT 92–100; BMI 37.5
[2022-03-22 14:44] LABS: Basophils # 0.1 10^3/uL (0.0-0.1); Basophils % 0.7 %; Eosinophils # 0.3 10^3/uL (0.0-0.8); Eosinophils % 2.7 %; Hematocrit 31.8 % (42.0-52.0); Hemoglobin 9.6 g/dL (11.7-16.6); Lymphocytes # 0.9 10^3/uL (0.8-4.8); Lymphocytes % 7.5 %; Mean Corpuscular HGB Conc 30.2 g/dL (30.0-36.0); Mean Corpuscular Hemoglobin 27.7 pg (28.0-34.0); Mean Corpuscular Volume 91.6 fl (80-94); Mean Platelet Volume 10.9 fL (7.4-10.4); Monocytes # 1.2 10^3/uL (0.2-0.9); Monocytes % 10.1 %; Neutrophils # 9.36 10^3/uL (1.8-7.7); Neutrophils % 78.3 %; Nucleated Red Blood Cells % 0 %; Platelet Count 261 10^3/cmm (130-400); Red Blood Count 3.47 10^6/uL (4.1-5.3); Red Cell Distribution Width 16.5 % (12.1-15.1); White Blood Count 11.9 10^3/uL (4.0-10.0)
[2022-03-22 15:06] LABS: Alanine Aminotransferase 11 U/L (0-41); Albumin Level 2.8 g/dL (3.5-5.2); Alkaline Phosphatase 237 U/L (40-130); Blood Urea Nitrogen 41 mg/dL (6-20); Calcium 8.3 mg/dL (8.5-10.5); Carbon Dioxide 29 mmol/L (22-29); Chloride 89 mmol/L (98-107); Globulin 4.3 g/dL (1.3-4.6); Glomerular Filtration Rate 11.7 mL/min (90-130); Glucose 151 mg/dL (65-115); Lipase 11 U/L (13-60); Osmolality Calculated 293 mOsm/kg (285-295); Sodium 135 mmol/L (136-145); Total Bilirubin 1.2 mg/dL (0.15-1.2); Total Protein 7.1 g/dL (6.6-8.7)
[2022-03-22 15:07] LABS: Anion Gap 21.8 (5-19); Aspartate Amino Transferase 23 U/L (0-40); Potassium 4.8 mmol/L (3.5-5.1)
[2022-03-22 15:17] LABS: Ammonia 13 umol/L (16-60)
--- NOTE | 2022-03-22 15:27 | ED_ITS ---
HPI - Abdominal Pain General: Chief Complaint: Abdominal Pain Stated Complaint: Low blood pressure Time Seen by Provider: 03/22/22 14:06 History of Present Illness: 52-year-old male presenting today with worsening abdominal pain. Patient was seen his primary care clinic earlier today. Was noted to have worsening abdominal pain, intermittent fevers. And concern for SBP. Also concern for new onset of liver failure. Primary care provider sending to the ED for paracentesis. Patient notes that since being discharged in the hospital he has had significant whole body pain. Currently in chronic renal disease getting multiple paracentesis as well as dialysis runs. Has been compliant with his medications. [facility] ED PFSH: Medical History Acute and chronic respiratory failure with hypercapnia Anemia BMI 50.0-59.9, adult Cardiac arrest (~07/2020) when had covid CHF (congestive heart failure), NYHA class III Chronic respiratory failure with hypoxia and hypercapnia Chronic venous insufficiency COPD (chronic obstructive pulmonary disease) COPD (chronic obstructive pulmonary disease) Diabetes Diabetic foot ulcers Diabetic ulcer of left foot ESRD (end stage renal disease) on dialysis ESRD on dialysis First degree heart block Fracture of fifth metatarsal bone of left foot Fracture of fourth metatarsal bone of left foot Fracture, thoracic vertebra T7-T8 History of renal cell carcinoma Hypertension Lung nodule Morbid obesity with BMI of 40.0-44.9, adult Neuropathy Non-pressure chronic ulcer of other 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 No recurrence for long-term follow-up with some suspicion on CT scan April 2020. Restrictive lung disease Type 2 diabetes mellitus with diabetic polyneuropathy Urinary retention Surgical History H/O partial nephrectomy bilateral H/O wisdom tooth extraction History of cataract surgery Hx of lymph node excision Family History Father , at age 65 Diabetes Cancer Metastatic prostate cancer to liver Mother , at age 72 Diabetes Grandfather Diabetes Cancer Other Anemia Hyperlipidemia Social History (Reviewed 03/17/22 @ 14:08 by SHAHAB [place] Smoking and tobacco status: never smoked Second hand smoke exposure: Yes Smoking risk assessment/counseling performed?: Yes Alcohol intake: current Alcohol intake frequency: holidays/special occasions only Lives independently: Yes Household members: spouse Housing: House Marital status: service: No Current occupational status: retired Pets and animals: Yes History of recent travel: No Current gender identity: Male Physical Exam Const: COMMON NORMALS: no acute distress, patient oriented x3 and alert GENERAL APPEARANCE: cooperative ORIENTATION/CONSCIOUSNESS: Yes awake, Yes oriented to person, Yes oriented to place and Yes oriented to time HENMT: COMMON NORMALS: normocephalic, atraumatic, external ears normal, Normal external nose present and moist oral mucous membranes HEAD & SCALP: normal to inspection, normocephalic and atraumatic NOSE: Normal external nose present GENERAL EAR: hearing grossly impaired EXTERNAL EAR: Yes external ears normal Eye: COMMON NORMALS: Equal, round and reactive pupils present, EOMs intact bilaterally, conjunctivae normal and no scleral icterus GENERAL EYE: appearance normal, both eyes and all related structures EYELID: eyelids normal CONJUNCTIVA: Yes conjunctivae normal SCLERA: sclerae normal PUPIL: Yes Equal, round and reactive pupils present Neck/C-Spine: COMMON NORMALS: full ROM, supple and no JVD GENERAL: Yes normal visual inspection Lymph: LYMPHATIC: no lymphadenopathy noted and no lymphedema noted Chest: COMMONS NORMALS: normal inspection of the chest Resp: COMMON NORMALS: normal respiratory effort, No retractions and No use of accessory muscles Cardio: COMMON NORMALS: no JVD, regular rate and regular rhythm RATE: regular rate RHYTHM: regular rhythm GI: COMMON NORMALS: negative for Normal to inspection, nondistended, normoactive bowel sounds present (Significant abdominal distention, body wall edema, diffuse pain to palpatio) : COMMON NORMALS: Yes no CVA tenderness BLADDER/KIDNEY EXAM: Yes no CVA tenderness Back/Pelvis: COMMON NORMALS: no CVA tenderness and thoracic and lumbar spine normal to inspection Extremity: COMMON NORMALS: normal to inspection, full ROM and capillary refill normal GENERAL: Yes normal exam except as noted Neuro: COMMON NORMALS: patient oriented x3, CN's II-XII intact bilaterally, moves all extremities, no focal motor deficits, no sensory deficits noted and gait normal SENSORIUM/ORIENTATION: Yes alert, Yes oriented to person, Yes oriented to place and Yes oriented to time Psych: COMMON NORMALS: mental status grossly normal, Normal thought process present, cooperative and normal affect THOUGHT PROCESS: Normal thought process present Skin: COMMON NORMALS: no rashes or lesions noted and no wounds GENERAL SKIN EXAM: no rashes or lesions noted Procedures Paracentesis Time Out Performed: Yes Indication: possible spontaneous bacterial peritonitis Procedure: diagnostic paracentesis Location: LLQ Local Anesthetic: lidocaine 1% Amount of anesthesia used (mL): 3 Bedside Ultrasound Used: yes, Ascites confirmed and location marked Preparation: 11 blade used to make maxx in skin Fluid: clear Size of Needle Used: 18 Post Procedure Exam: awake, alert, normal BP, normal HR and normal SpO2 Patient Tolerated Procedure: well Complications: none Course Vital Signs: Vital signs: Vital Signs Temperature 97.9 F 03/22/22 14:10 Pulse Rate 90 03/22/22 14:10 Respiratory Rate 20 H 03/22/22 15:40 Blood Pressure 107/63 03/22/22 14:10 Pulse Oximetry 92 03/22/22 14:10 Oxygen Delivery Me thod 03/22/22 14:10 MDM - Abdominal Pain Medical Decision Making 52-year-old male presenting today with diffuse abdominal pain. Patient reporting subjective fevers at home. No fever in the ED. Patient noting that when his abdomen is the swallowing it is severely painful for him. Patient was given risks and benefits of performing a paracentesis. Patient verbalized understanding would like to proceed with the procedure. Procedure note as above. Cell count not suggestive of spontaneous bacterial peritonitis. CT abdomen pelvis without acute abdominal pathology. Recommended routine follow-up with her primary care doctor. Patient verbalized understanding. Lab Data : 03/22/22 14:20 03/22/22 14:20 Labs/Radiology: Radiology Impressions Abdomen/Pelvis CT 03/22/22 16:02 IMPRESSION: 1. Pneumoperitoneum and gas in the anterior left abdominal wall. This could relate to recent procedure or paracentesis. If the patient has had no procedure, this would indicate bowel perforation. No definite source is identified. 2. Mild ascites. 3. Severe body wall edema. 4. Mild diverticulosis of the colon. 5. Diffusely inhomogenous liver. This could relate to liver parenchymal disease or cirrhosis. 6. Splenomegaly. ADDENDUM: 03/22/221745 THIS REPORT CONTAINS FINDINGS THAT MAY BE CRITICAL TO PATIENT CARE. The findings were verbally communicated via telephone conference with Shady Jules at 5:43 PM CDT on 03/22/2022. The findings were acknowledged and understood. Laboratory Results WBC 11.9 10^3/uL (4.0-10.0) H 03/22/22 14:20 RBC 3.47 10^6/uL (4.1-5.3) L 03/22/22 14:20 Hgb 9.6 g/dL (11.7-16.6) L 03/22/22 14:20 Hct 31.8 % (42.0-52.0) L 03/22/22 14:20 MCV 91.6 fl (80-94) 03/22/22 14:20 MCH 27.7 pg (28.0-34.0) L 03/22/22 14:20 MCHC 30.2 g/dL (30.0-36.0) 03/22/22 14:20 RDW 16.5 % (12.1-15.1) H 03/22/22 14:20 Plt Count 261 10^3/cmm (130-400) 03/22/22 14:20 MPV 10.9 fL (7.4-10.4) H 03/22/22 14:20 Neut % (Auto) 78.3 % 03/22/22 14:20 Lymph % (Auto) 7.5 % 03/22/22 14:20 [place] % (Auto) 10.1 % 03/22/22 14:20 Eos % (Auto) 2.7 % 03/22/22 14:20 Baso % (Auto) 0.7 % 03/22/22 14:20 Neut # (Auto) 9.36 10^3/uL (1.8-7.7) H 03/22/22 14:20 Lymph # (Auto) 0.9 10^3/uL (0.8-4.8) 03/22/22 14:20 [place] # (Auto) 1.2 10^3/uL (0.2-0.9) H 03/22/22 14:20 Eos # (Auto) 0.3 10^3/uL (0.0-0.8) 03/22/22 14:20 Baso # (Auto) 0.1 10^3/uL (0.0-0.1) 03/22/22 14:20 Nucleated RBC % (auto) 0 % 03/22/22 14:20 Nucleated RBCs # 0.0 /100WBC 03/22/22 14:20 Differential Comment Yes 03/22/22 15:10 Sodium 135 mmol/L (136-145) L 03/22/22 14:20 Potassium 4.8 mmol/L (3.5-5.1) 03/22/22 14:20 Chloride 89 mmol/L (98-107) L 03/22/22 14:20 Carbon Dioxide 29 mmol/L (22-29) 03/22/22 14:20 Anion Gap 21.8 (5-19) H 03/22/22 14:20 BUN 41 mg/dL (6-20) H 03/22/22 14:20 Creatinine 5.2 mg/dL (0.7-1.2) H 03/22/22 14:20 GFR Calculation 11.7 mL/min (90-130) L 03/22/22 14:20 Glucose 151 mg/dL (65-115) H 03/22/22 14:20 Calculated Osmolality 293 mOsm/kg (285-295) 03/22/22 14:20 Lactate 1.5 mmol/L (0.5-2.2) 03/22/22 15:50 Calcium 8.3 mg/dL (8.5-10.5) L 03/22/22 14:20 Total Bilirubin 1.2 mg/dL (0.15-1.2) 03/22/22 14:20 AST 23 U/L (0-40) 03/22/22 14:20 ALT 11 U/L (0-41) 03/22/22 14:20 Alkaline Phosphatase 237 U/L (40-130) H 03/22/22 14:20 Ammonia 13 umol/L (16-60) L 03/22/22 14:51 Total Protein 7.1 g/dL (6.6-8.7) 03/22/22 14:20 Albumin 2.8 g/dL (3.5-5.2) L 03/22/22 14:20 Globulin 4.3 g/dL (1.3-4.6) 03/22/22 14:20 Lipase 11 U/L (13-60) L 03/22/22 14:20 Fluid Color Pale yellow 03/22/22 15:10 Fluid Appearance Cloudy 03/22/22 15:10 Fluid Specific Grav 1.010 03/22/22 15:10 Fluid pH 7.0 03/22/22 15:10 Fluid WBC 10 /uL 03/22/22 15:10 Fluid RBC 1.000 10^3/uL 03/22/22 15:10 Fld Polynuclear WBCs # 0.004 03/22/22 15:10 Fld Polynuclear WBCs % 40.000 % 03/22/22 15:10 Fl Mononucl WBCs #(Auto) 0.006 03/22/22 15:10 Fl Mononuclear % Auto 60.000 % 03/22/22 15:10 Fluid Glucose 165.0 mg/dL 03/22/22 15:10 Fluid Total Protein 3.2 g/dL 03/22/22 15:10 Fluid Albumin 1.5 g/dL 03/22/22 15:10 Fluid LDH 161 U/L 03/22/22 15:10 Fluid Amylase 6 U/L 03/22/22 15:10 Fluid Alk Phosphatase 84 IU/L 03/22/22 15:10 Fluid Cholesterol 33 mg/dL (0-200) 03/22/22 15:10 Fluid Triglycerides 81 mg/dL (0-150) 03/22/22 15:10 Fluid Uric Acid 5 mg/dL 03/22/22 15:10 Discharge Plan Discharge Patient Disposition: Home Clinical Impression: Ascites, Abdominal pain Condition: Stable Prescriptions: No Action (DME) Wheel Chair See Rx Instructions .Route .MEDSUPPLY Qty: 1 0RF Rx Instructions: As directed HOME sodium bicarbonate 650 mg tablet 650 mg PO QAM sevelamer carbonate [Renvela] 800 mg tablet See Rx Instructions .ROUTE .COMPLEX Rx Instructions: 2 tabs po tid with meals and 1 tab bid with snacks venlafaxine 150 mg capsule,extended release 24hr 150 mg PO QAM RenaPlex-D 800 mcg-12.5 mg -2,000 unit tablet 1 tab PO QAM carvedilol 25 mg tablet 25 mg PO BID Rx Instructions: 25mg po bid as directed (hold am of hd) atorvastatin 80 mg tablet 80 mg PO QAM trazodone 50 mg tablet 50 mg PO QAM ropinirole 0.25 mg tablet 0.25 mg PO BEDTIME PRN (Reason: Restless Leg(S)) gabapentin 300 mg capsule 300 mg PO DAILY PRN (Reason: Pain) hydroxyzine pamoate 25 mg capsule 25 mg PO DAILY PRN (Reason: Itching) Rexulti 0.25 mg tablet 0.25 mg PO QAM Lokelma 5 gram powder in packet See Rx Instructions .ROUTE .COMPLEX Rx Instructions: 1 packet po on mon,wed,fri, sat and sun (non dialysis days) doxycycline hyclate 100 mg tablet 100 mg PO BID 10 Days Qty: 20 0RF levofloxacin 750 mg tablet 750 mg PO EVERY OTHER DAY 10 Days Qty: 5 0RF hydrocodone-acetaminophen 5-325 mg tablet 1 tab PO Q6H PRN (Reason: Pain) torsemide 100 mg tablet 100 mg PO DAILY Hold Instructions: Resume on 03/27/22. hydralazine 100 mg tablet 10 mg PO DAILY Hair,Nails and Skin Vitamin Tablet 1 tab PO DAILY Vitamin C (ascorbate calcium) 814 mg/gram Powder 814 mg PO DAILY Men's Multivitamin 400-20-300 mcg Tablet 1 tab PO DAILY Lyrica 50 mg capsule 50 mg PO DAILY Discharge Orders: Discharge ED (Routine); Ordered 03/22/22 Ordered By: Shady Jules Referrals: Sulma Wetzel MD [Primary Care Provider] - Patient Instructions: Abdominal Pain (ED), Opioid Safety, Paracentesis (DC) Coding Level of Care Code ED Tufter Hand for Chg Fwd Exam Comprehensive
[2022-03-22] MEDS: HYDROmorphone 1 mg/mL INJ 1 mL IVP (15:40)
--- NOTE | 2022-03-22 16:00 | PC.NURSE ---
Paracentesis done by Dr. Jules at bedside. Patient was given risks and benefits and he has had it done before. Patient and his sister states that he had 7 liters taken off of him last time and did well. Dr. Jules numbed the site with lidocaine prior to start of sterile procedure. Patient was medicated with 1mg of dilaudid for his pain. 5,000 ml was removed from him total via continuous suction with this nurse at bedside continuously and vitals remaining stable throughout. Dr. Jules removed catheter at end of procedure prior to patient going for CT scan. 4x4 gauze and foam tape applied to site.
[2022-03-22 16:02] LABS: Apprearance, Body Fluid CLOUDY; Color, Body Fluid PALE YELLOW
--- NOTE | 2022-03-22 16:02 | CTR_ITS ---
PROCEDURE INFORMATION: Exam: CT Abdomen And Pelvis With Contrast Exam date and time: 03/22/2022 4:57 PM Age: 52 years old Clinical indication: Abdominal tenderness and bloating; Prior surgery; Surgery date: 6+ months; Surgery type: 2 partial nephrectomies; Additional info: Abdominal pain, dialysis patient, groin pressure, abdomen pain, and lower extremity swelling x 5 days TECHNIQUE: Imaging protocol: Computed tomography of the abdomen and pelvis with contrast. Radiation optimization: All CT scans at this facility use at least one of these dose optimization techniques: automated exposure control; mA and/or kV adjustment per patient size (includes targeted exams where dose is matched to clinical indication); or iterative reconstruction. Contrast material: OMNIPAQUE 350; Contrast volume: 95 ml; Contrast route: INTRAVENOUS (IV); COMPARISON: CT abdomen wo con [id number] 05/13/2020 10:12 AM RADIATION DOSE METRICS: Total DLP (mGy-cm): 1820.03 FINDINGS: Tubes, catheters and devices: Central venous catheter with tip in the right atrium. Heart: Air within the right atrium and ventricle, presumably related to venous catheterization. Coronary artery calcifications. Liver: Diffusely inhomogenous liver. Gallbladder and bile ducts: Normal. No calcified stones. No ductal dilation. Pancreas: Normal. No ductal dilation. Spleen: Splenomegaly measuring 16.8 cm. Adrenal glands: Normal. No mass. Kidneys and ureters: Normal. No hydronephrosis. Stomach and bowel: Mild diverticulosis of the left colon. No diverticulitis. The stomach and small bowel are unremarkable. No obstruction. Appendix: The appendix is not visualized. No secondary signs of appendicitis. Intraperitoneal space: Small amount of scattered anterior pneumoperitoneum. Vasculature: Arterial calcifications. No aneurysm. Mild ascites in the upper abdomen and pelvis. Lymph nodes: Multiple enlarged inguinal, retroperitoneal and bilateral iliac chain lymph nodes. Urinary bladder: The urinary bladder is partially decompressed with circumferential wall thickening. Reproductive: Unremarkable as visualized. Bones/joints: Chronic L1 compression fracture. No acute fracture identified. Soft tissues: Small amount of soft tissue gas in the anterior left abdominal wall. No organized fluid collection. Severe diffuse body wall edema. Small umbilical hernia which contains fat and small gas bubbles. CT/CT abdomen pelvis w con* [id number] IMPRESSION: 1. Pneumoperitoneum and gas in the anterior left abdominal wall. This could relate to recent procedure or paracentesis. If the patient has had no procedure, this would indicate bowel perforation. No definite source is identified. 2. Mild ascites. 3. Severe body wall edema. 4. Mild diverticulosis of the colon. 5. Diffusely inhomogenous liver. This could relate to liver parenchymal disease or cirrhosis. 6. Splenomegaly.
[2022-03-22 16:15] LABS: Body Fluid Polynuclear #Cells 0.004; Body Fluid WBC 10 /uL; Monocytes # Body Fluid 0.006
[2022-03-22 16:18] LABS: Albumin Body Fluid 1.5 g/dL; Amylase Body Fluid 6 U/L; Cholesterol Body Fluid 33 mg/dL (0-200); LDH Body Fluid 161 U/L; Total Protein Body Fluid 3.2 g/dL; Triglycerides Body Fluid 81 mg/dL (0-150); Uric Acid Body Fluid 5 mg/dL
[2022-03-22 16:21] LABS: Lactate (Lactic Acid level) 1.5 mmol/L (0.5-2.2)
[2022-03-22 16:23] LABS: Cyto Order Verification No Order
[2022-03-22 16:44] LABS: Fluid Alkaline Phos. 84 IU/L
[2022-03-22] MEDS: iohexol 350 mg/mL 100 mL Btl IV (17:16)
[2022-03-22 17:20] LABS: PATH Referral YES
[2022-03-22] MEDS: haloperidol inj 5 mg/mL INJ 1 mL 2 MG IVP (17:45)
[2022-03-22] MEDS: ketorolac 30 mg/mL INJ 15 MG IVP (17:45)
[2022-03-22] MEDS: acetaminophen 500 mg Tablet 1000 MG PO (17:47)
== END 2022-03-22 18:30 | disposition home or self-care (01) ==
PROVIDERS: Emergency Provider Emergency Medicine; PCP Internal Medicine
DX: R18.8 Other ascites (principal); R10.9 Unspecified abdominal pain; I13.2 Hypertensive heart and chronic kidney disease with heart failure and with stage 5 chronic kidney disease, or end stage renal disease; E11.22 Type 2 diabetes mellitus with diabetic chronic kidney disease; N18.6 End stage renal disease; I50.9 Heart failure, unspecified; J44.9 Chronic obstructive pulmonary disease, unspecified; Z85.528 Personal history of other malignant neoplasm of kidney; Z90.5 Acquired absence of kidney; Z77.22 Contact with and (suspected) exposure to environmental tobacco smoke (acute) (chronic)
CPT/HCPCS: 36415; 74177; 80053; 80503; 82042; 82140; 82150; 82465; 82945; 83605; 83615; 83690; 83986; 84075; 84157; 84315; 84478; 84560; 85025; 87015; 87070; 87075; 87116; 87205; 87206; 87801; 89050; 96374; 96375; 99285; 99291; 99292; J1170; J1630; J1885; Q9967

== ENCOUNTER → 2022-03-27 13:05 | Outpatient (BNVA) | payer MEDICARE, MEDICAID, SELFPAY | PROVIDERS: PCP Internal Medicine; Visit Provider Podiatrist Foot & Ankle Surgery | DX: E11.621 Type 2 diabetes mellitus with foot ulcer (principal); L97.524 Non-pressure chronic ulcer of other part of left foot with necrosis of bone; E11.42 Type 2 diabetes mellitus with diabetic polyneuropathy; Z79.4 Long term (current) use of insulin; N18.6 End stage renal disease; Z99.2 Dependence on renal dialysis | CPT/HCPCS: 11042; 99203 ==

== ENCOUNTER → 2022-04-05 14:54 | Outpatient (BNVA) | payer MEDICARE, MEDICAID, SELFPAY | PROVIDERS: PCP Internal Medicine; Visit Provider Podiatrist Foot & Ankle Surgery | DX: E11.621 Type 2 diabetes mellitus with foot ulcer (principal); L97.524 Non-pressure chronic ulcer of other part of left foot with necrosis of bone; E11.42 Type 2 diabetes mellitus with diabetic polyneuropathy; Z79.4 Long term (current) use of insulin; N18.6 End stage renal disease; Z99.2 Dependence on renal dialysis | CPT/HCPCS: 11042 ==

== ENCOUNTER → 2022-04-12 14:03 | Outpatient (BNVA) | payer MEDICARE, MEDICAID, SELFPAY | PROVIDERS: PCP Internal Medicine; Visit Provider Podiatrist Foot & Ankle Surgery | DX: E11.42 Type 2 diabetes mellitus with diabetic polyneuropathy (principal); Z79.4 Long term (current) use of insulin; L97.524 Non-pressure chronic ulcer of other part of left foot with necrosis of bone; E11.649 Type 2 diabetes mellitus with hypoglycemia without coma; N18.6 End stage renal disease; Z99.2 Dependence on renal dialysis; E11.621 Type 2 diabetes mellitus with foot ulcer | CPT/HCPCS: 11042 ==

== ENCOUNTER 2022-04-14 11:31 | Day surgery (SDC) | payer MEDICARE, MEDICAID, SELFPAY ==
[2022-04-11 13:14] VITALS: BMI 36.9
[2022-04-14 11:53] VITALS: BP 121/67; PULSE 87; RESP 20; TEMP 36.4; O2SAT 95
--- NOTE | 2022-04-14 12:00 | US_ITS ---
WS: [id number] ULTRASOUND-GUIDED PARACENTESIS CLINICAL INFORMATION: ascites COMPARISON: None. Procedure Informed consent: The risks, benefits, and alternatives of the procedure were discussed with the riya ent. Verbal and written consent was obtained. Timeout: A timeout was performed to confirm the correct patient, procedure, and site. Preparation: A suitable skin site was identified. The patient was prepped and draped in usual sterile fashion. Lidocaine 1% was used for local anesthesia. Catheter: 4 Nigerian One-step Yueh catheter. Side: RIGHT Lower quadrant. Fluid Volume: 8000 and ml Color: Clear yellow DISPOSITION: Discarded safely. Complications: None. Patient disposition: Discharged from the department in stable condition. US/[place] paracentesis abd w [id number] IMPRESSION: Uncomplicated ultrasound-guided paracentesis. Removal of 8000 cc
== END 2022-04-14 13:49 | disposition home or self-care (01) ==
LOC: GILAB 11:32
PROVIDERS: Radiology Neuroradiology; PCP Internal Medicine; Visit Provider Internal Medicine Nephrology
PROC: (CPT 49082; principal; 2022-04-14 12:00)
DX: R18.8 Other ascites (principal)
CPT/HCPCS: 49083; 96365; P9047

== ENCOUNTER → 2022-04-17 10:00 | Outpatient (BNVA) | payer MEDICARE, MEDICAID, SELFPAY | PROVIDERS: PCP Internal Medicine; Visit Provider Podiatrist Foot & Ankle Surgery | DX: E11.621 Type 2 diabetes mellitus with foot ulcer (principal); L97.524 Non-pressure chronic ulcer of other part of left foot with necrosis of bone; E11.42 Type 2 diabetes mellitus with diabetic polyneuropathy; Z79.4 Long term (current) use of insulin; E11.649 Type 2 diabetes mellitus with hypoglycemia without coma; N18.6 End stage renal disease; Z99.2 Dependence on renal dialysis | CPT/HCPCS: 11042 ==

== ENCOUNTER → 2022-04-19 10:01 | Outpatient (BNVA) | payer MEDICARE, MEDICAID, SELFPAY | PROVIDERS: PCP Internal Medicine; Visit Provider Thoracic Surgery (Cardiothoracic Vascular Surgery) | DX: I96 Gangrene, not elsewhere classified (principal); E11.622 Type 2 diabetes mellitus with other skin ulcer; L98.492 Non-pressure chronic ulcer of skin of other sites with fat layer exposed | CPT/HCPCS: 99203; 99213 ==

== ENCOUNTER → 2022-04-24 10:22 | Outpatient (BNVA) | payer MEDICARE, MEDICAID, SELFPAY | PROVIDERS: PCP Internal Medicine; Visit Provider Podiatrist Foot & Ankle Surgery | DX: E11.621 Type 2 diabetes mellitus with foot ulcer (principal); L97.524 Non-pressure chronic ulcer of other part of left foot with necrosis of bone; E11.42 Type 2 diabetes mellitus with diabetic polyneuropathy; Z79.4 Long term (current) use of insulin; E11.649 Type 2 diabetes mellitus with hypoglycemia without coma; N18.6 End stage renal disease; Z99.2 Dependence on renal dialysis | CPT/HCPCS: 11042 ==

== ENCOUNTER → 2022-04-26 12:59 | Outpatient (BNVA) | payer MEDICARE, MEDICAID, SELFPAY | PROVIDERS: PCP Internal Medicine; Visit Provider Thoracic Surgery (Cardiothoracic Vascular Surgery) | DX: I96 Gangrene, not elsewhere classified (principal); E11.621 Type 2 diabetes mellitus with foot ulcer; L98.492 Non-pressure chronic ulcer of skin of other sites with fat layer exposed | CPT/HCPCS: 97597; 97598 ==

== ENCOUNTER 2022-04-27 12:18 | Day surgery (SDC) | payer MEDICARE, MEDICAID, SELFPAY ==
[2022-04-25 13:13] VITALS: BMI 39.5
--- NOTE | 2022-04-27 12:36 | US_ITS ---
WS: [id number] ULTRASOUND-GUIDED PARACENTESIS CLINICAL INFORMATION: ascites COMPARISON: None. Procedure Informed consent: The risks, benefits, and alternatives of the procedure were discussed with the riya ent. Verbal and written consent was obtained. Timeout: A timeout was performed to confirm the correct patient, procedure, and site. Preparation: A suitable skin site was identified. The patient was prepped and draped in usual sterile fashion. Lidocaine 1% was used for local anesthesia. Catheter: 4 Tristanian One-step Yueh catheter. Side: RIGHT Lower quadrant. Fluid Volume: 3200 ml Color: Clear yellow DISPOSITION: Discarded safely. Complications: None. Patient disposition: Discharged from the department in stable condition. US/US paracentesis abd w [id number] IMPRESSION: Uncomplicated ultrasound-guided paracentesis. Removal of 3200 cc ascites
[2022-04-27 12:37] VITALS: BP 117/62; PULSE 104; RESP 20; TEMP 36.2; O2SAT 96
== END 2022-04-27 14:30 | disposition home or self-care (01) ==
PROVIDERS: Radiology Neuroradiology; PCP Internal Medicine; Visit Provider Internal Medicine Nephrology
PROC: (CPT 49082; principal; 2022-04-27 13:00)
DX: R18.8 Other ascites (principal)
CPT/HCPCS: 49083; 96365; P9047

== ENCOUNTER → 2022-05-01 09:57 | Outpatient (BNVA) | payer MEDICARE, MEDICAID, SELFPAY | PROVIDERS: PCP Internal Medicine; Visit Provider Podiatrist Foot & Ankle Surgery | DX: E11.621 Type 2 diabetes mellitus with foot ulcer (principal); L97.524 Non-pressure chronic ulcer of other part of left foot with necrosis of bone; E11.42 Type 2 diabetes mellitus with diabetic polyneuropathy; Z79.4 Long term (current) use of insulin; E11.649 Type 2 diabetes mellitus with hypoglycemia without coma; N18.6 End stage renal disease; E11.22 Type 2 diabetes mellitus with diabetic chronic kidney disease; Z99.2 Dependence on renal dialysis | CPT/HCPCS: 11042 ==

== ENCOUNTER → 2022-05-03 10:19 | Outpatient (BNVA) | payer MEDICARE, MEDICAID, SELFPAY | PROVIDERS: PCP Internal Medicine; Visit Provider Thoracic Surgery (Cardiothoracic Vascular Surgery) | DX: I96 Gangrene, not elsewhere classified (principal); E11.622 Type 2 diabetes mellitus with other skin ulcer; L98.492 Non-pressure chronic ulcer of skin of other sites with fat layer exposed | CPT/HCPCS: 97597; 97598 ==

== ENCOUNTER → 2022-05-08 09:52 | Outpatient (BNVA) | payer MEDICARE, MEDICAID, SELFPAY | PROVIDERS: PCP Internal Medicine; Visit Provider Podiatrist Foot & Ankle Surgery | DX: E11.42 Type 2 diabetes mellitus with diabetic polyneuropathy (principal); Z79.4 Long term (current) use of insulin; E11.621 Type 2 diabetes mellitus with foot ulcer; L97.524 Non-pressure chronic ulcer of other part of left foot with necrosis of bone; E11.649 Type 2 diabetes mellitus with hypoglycemia without coma; N18.6 End stage renal disease; Z99.2 Dependence on renal dialysis | CPT/HCPCS: 11042 ==

== ENCOUNTER → 2022-05-10 10:02 | Outpatient (BNVA) | payer MEDICARE, MEDICAID, SELFPAY | PROVIDERS: PCP Internal Medicine; Visit Provider Thoracic Surgery (Cardiothoracic Vascular Surgery) | DX: I96 Gangrene, not elsewhere classified (principal); E11.622 Type 2 diabetes mellitus with other skin ulcer; L98.492 Non-pressure chronic ulcer of skin of other sites with fat layer exposed | CPT/HCPCS: 11042; 11045 ==

== ENCOUNTER 2022-05-12 11:21 | Day surgery (SDC) | payer MEDICARE, MEDICAID, SELFPAY ==
[2022-05-12 11:38] VITALS: BMI 36.1
[2022-05-12 11:40] VITALS: BP 155/80; PULSE 88; RESP 18; TEMP 36.1; O2SAT 94
--- NOTE | 2022-05-12 11:45 | US_ITS ---
WS: [id number] ULTRASOUND-GUIDED PARACENTESIS CLINICAL INFORMATION: ascites COMPARISON: None. Procedure Informed consent: The risks, benefits, and alternatives of the procedure were discussed with the riya ent. Verbal and written consent was obtained. Timeout: A timeout was performed to confirm the correct patient, procedure, and site. Preparation: A suitable skin site was identified. The patient was prepped and draped in usual sterile fashion. Lidocaine 1% was used for local anesthesia. Catheter: 4 Latvian One-step Yueh catheter. Side: RIGHT Lower quadrant. Fluid Volume: 3550 ml Color: Clear yellow DISPOSITION: Discarded safely. Complications: None. Patient disposition: Discharged from the department in stable condition. US/US paracentesis abd w [id number] IMPRESSION: Uncomplicated ultrasound-guided paracentesis. Removal of 3550 cc
== END 2022-05-12 13:57 | disposition home or self-care (01) ==
LOC: GILAB 11:32
PROVIDERS: Radiology Neuroradiology; PCP Internal Medicine; Visit Provider Internal Medicine Nephrology
PROC: (CPT 49082; principal; 2022-05-12 12:00)
DX: R18.8 Other ascites (principal)
CPT/HCPCS: 49083; 96365; P9047

== ENCOUNTER → 2022-05-16 13:13 | Outpatient (BNVA) | payer MEDICARE, MEDICAID, SELFPAY | PROVIDERS: PCP Internal Medicine; Visit Provider Podiatrist Foot & Ankle Surgery | DX: E11.42 Type 2 diabetes mellitus with diabetic polyneuropathy (principal); Z79.4 Long term (current) use of insulin; E11.621 Type 2 diabetes mellitus with foot ulcer; L97.524 Non-pressure chronic ulcer of other part of left foot with necrosis of bone; E11.649 Type 2 diabetes mellitus with hypoglycemia without coma; N18.6 End stage renal disease; Z99.2 Dependence on renal dialysis; L85.3 Xerosis cutis | CPT/HCPCS: 99203; 99213 ==

== ENCOUNTER → 2022-05-17 10:17 | Outpatient (BNVA) | payer MEDICARE, MEDICAID, SELFPAY | PROVIDERS: PCP Internal Medicine; Visit Provider Thoracic Surgery (Cardiothoracic Vascular Surgery) | DX: I96 Gangrene, not elsewhere classified (principal); E11.622 Type 2 diabetes mellitus with other skin ulcer; L97.822 Non-pressure chronic ulcer of other part of left lower leg with fat layer exposed; L98.492 Non-pressure chronic ulcer of skin of other sites with fat layer exposed; L03.311 Cellulitis of abdominal wall | CPT/HCPCS: 11042; 11045 ==

== ENCOUNTER → 2022-05-22 10:16 | Outpatient (BNVA) | payer MEDICARE, MEDICAID, SELFPAY | PROVIDERS: PCP Internal Medicine; Visit Provider Podiatrist Foot & Ankle Surgery | DX: E11.42 Type 2 diabetes mellitus with diabetic polyneuropathy (principal); E11.621 Type 2 diabetes mellitus with foot ulcer; L97.524 Non-pressure chronic ulcer of other part of left foot with necrosis of bone; Z79.4 Long term (current) use of insulin; E11.649 Type 2 diabetes mellitus with hypoglycemia without coma; N18.6 End stage renal disease; Z99.2 Dependence on renal dialysis; L85.3 Xerosis cutis; L84 Corns and callosities; E11.22 Type 2 diabetes mellitus with diabetic chronic kidney disease | CPT/HCPCS: 11042 ==

== ENCOUNTER 2022-05-24 11:46 | Day surgery (SDC) | payer MEDICARE, MEDICAID, SELFPAY ==
[2022-05-22 10:53] VITALS: BMI 35.6
--- NOTE | 2022-05-24 12:04 | US_ITS ---
WS: [id number] INDICATION: Ascites. Paracentesis. TECHNIQUE: Four-quadrant ultrasound. FINDINGS: Mild ascites in the RIGHT lower quadrant. Paracentesis deferred at this time. US/US abdomen lmt fluid [id number] IMPRESSION: Only mild ascites in the RIGHT lower quadrant. Paracentesis not per formed. Patient will follow-up as needed
[2022-05-24 12:06] VITALS: BP 162/80; PULSE 90; RESP 20; TEMP 36.2; O2SAT 99
== END 2022-05-24 12:25 | disposition home or self-care (01) ==
PROVIDERS: Radiology Neuroradiology; PCP Internal Medicine; Visit Provider Internal Medicine Nephrology
DX: R18.8 Other ascites (principal); E11.622 Type 2 diabetes mellitus with other skin ulcer; L98.492 Non-pressure chronic ulcer of skin of other sites with fat layer exposed; L03.311 Cellulitis of abdominal wall
CPT/HCPCS: 11042; 11045; 76705; 97597; 97598

== ENCOUNTER → 2022-05-29 10:50 | Outpatient (BNVA) | payer MEDICARE, MEDICAID, SELFPAY | PROVIDERS: PCP Internal Medicine; Visit Provider Podiatrist Foot & Ankle Surgery | DX: E11.621 Type 2 diabetes mellitus with foot ulcer (principal); E11.22 Type 2 diabetes mellitus with diabetic chronic kidney disease; L97.524 Non-pressure chronic ulcer of other part of left foot with necrosis of bone; E11.42 Type 2 diabetes mellitus with diabetic polyneuropathy; Z79.4 Long term (current) use of insulin; E11.649 Type 2 diabetes mellitus with hypoglycemia without coma; N18.6 End stage renal disease; Z99.2 Dependence on renal dialysis; L85.3 Xerosis cutis; L84 Corns and callosities; M21.542 Acquired clubfoot, left foot | CPT/HCPCS: 11042 ==

== ENCOUNTER → 2022-05-31 10:22 | Outpatient (BNVA) | payer MEDICARE, MEDICAID, SELFPAY | PROVIDERS: PCP Internal Medicine; Visit Provider Thoracic Surgery (Cardiothoracic Vascular Surgery) | DX: I96 Gangrene, not elsewhere classified (principal); E11.622 Type 2 diabetes mellitus with other skin ulcer; L98.492 Non-pressure chronic ulcer of skin of other sites with fat layer exposed; L03.311 Cellulitis of abdominal wall; L97.822 Non-pressure chronic ulcer of other part of left lower leg with fat layer exposed | CPT/HCPCS: 11042; 11045 ==

== ENCOUNTER → 2022-06-05 09:30 | Outpatient (BNVA) | payer MEDICARE, MEDICAID, SELFPAY | PROVIDERS: PCP Internal Medicine; Visit Provider Podiatrist Foot & Ankle Surgery | DX: E11.42 Type 2 diabetes mellitus with diabetic polyneuropathy (principal); Z79.4 Long term (current) use of insulin; L97.524 Non-pressure chronic ulcer of other part of left foot with necrosis of bone; E11.649 Type 2 diabetes mellitus with hypoglycemia without coma; Z99.2 Dependence on renal dialysis; N18.6 End stage renal disease; L85.3 Xerosis cutis; L84 Corns and callosities; M21.542 Acquired clubfoot, left foot; E11.621 Type 2 diabetes mellitus with foot ulcer; E11.22 Type 2 diabetes mellitus with diabetic chronic kidney disease | CPT/HCPCS: 11042 ==

== ENCOUNTER 2022-06-07 13:14 | Day surgery (SDC) | payer MEDICARE, MEDICAID, SELFPAY ==
--- NOTE | 2022-06-07 13:23 | US_ITS ---
WS: [email or web address] ULTRASOUND-GUIDED PARACENTESIS CLINICAL INFORMATION: Ascites COMPARISON: None. Procedure Informed consent: The risks, benefits, and alternatives of the procedure were discussed with the riya ent. Verbal and written consent was obtained. Timeout: A timeout was performed to confirm the correct patient, procedure, and site. Preparation: A suitable skin site was identified. The patient was prepped and draped in usual sterile fashion. Lidocaine 1% was used for local anesthesia. Catheter: 4 Cameroonian One-step Yueh catheter. Side: RIGHT Lower quadrant. Fluid Volume: 3250 ml Color: Clear yellow DISPOSITION: Discarded safely. Complications: None. Patient disposition: Discharged from the department in stable condition. US/US paracentesis abd w [id number] IMPRESSION: Uncomplicated ultrasound-guided paracentesis. Removal of 3250 cc
[2022-06-07 13:27] VITALS: BP 115/65; PULSE 80; RESP 16; TEMP 36.2; O2SAT 92; BMI 36.1
== END 2022-06-07 15:30 | disposition home or self-care (01) ==
LOC: GILAB 13:15
PROVIDERS: PCP Internal Medicine; Visit Provider Internal Medicine
PROC: (CPT 49082; principal; 2022-06-07 14:00)
DX: R18.8 Other ascites (principal); I96 Gangrene, not elsewhere classified; E11.622 Type 2 diabetes mellitus with other skin ulcer; L97.822 Non-pressure chronic ulcer of other part of left lower leg with fat layer exposed; L95.9 Vasculitis limited to the skin, unspecified; L98.492 Non-pressure chronic ulcer of skin of other sites with fat layer exposed
CPT/HCPCS: 11042; 11045; 49083; P9047

== ENCOUNTER → 2022-06-12 10:23 | Outpatient (BNVA) | payer MEDICARE, MEDICAID, SELFPAY | PROVIDERS: PCP Internal Medicine; Visit Provider Podiatrist Foot & Ankle Surgery | DX: E11.621 Type 2 diabetes mellitus with foot ulcer (principal); L97.524 Non-pressure chronic ulcer of other part of left foot with necrosis of bone; E11.22 Type 2 diabetes mellitus with diabetic chronic kidney disease; E11.42 Type 2 diabetes mellitus with diabetic polyneuropathy; Z79.4 Long term (current) use of insulin; E11.649 Type 2 diabetes mellitus with hypoglycemia without coma; N18.6 End stage renal disease; Z99.2 Dependence on renal dialysis; L85.3 Xerosis cutis; L84 Corns and callosities; M21.542 Acquired clubfoot, left foot | CPT/HCPCS: 11042 ==

== ENCOUNTER → 2022-06-14 10:18 | Outpatient (BNVA) | payer MEDICARE, MEDICAID, SELFPAY | PROVIDERS: PCP Internal Medicine; Visit Provider Thoracic Surgery (Cardiothoracic Vascular Surgery) | DX: I96 Gangrene, not elsewhere classified (principal); E11.622 Type 2 diabetes mellitus with other skin ulcer; L98.492 Non-pressure chronic ulcer of skin of other sites with fat layer exposed; L03.311 Cellulitis of abdominal wall; L95.9 Vasculitis limited to the skin, unspecified | CPT/HCPCS: 11042; 11045 ==

== ENCOUNTER → 2022-06-19 14:18 | Outpatient (BNVA) | payer MEDICARE, MEDICAID, SELFPAY | PROVIDERS: PCP Internal Medicine; Visit Provider Podiatrist Foot & Ankle Surgery | DX: E11.42 Type 2 diabetes mellitus with diabetic polyneuropathy (principal); Z79.4 Long term (current) use of insulin; L97.524 Non-pressure chronic ulcer of other part of left foot with necrosis of bone; E11.649 Type 2 diabetes mellitus with hypoglycemia without coma; N18.6 End stage renal disease; Z99.2 Dependence on renal dialysis; L85.3 Xerosis cutis; L84 Corns and callosities; M21.542 Acquired clubfoot, left foot; E11.621 Type 2 diabetes mellitus with foot ulcer | CPT/HCPCS: 11042 ==

== ENCOUNTER 2022-06-21 11:58 | Day surgery (SDC) | payer MEDICARE, MEDICAID, SELFPAY ==
[2022-06-19 09:32] VITALS: BMI 35.6
--- NOTE | 2022-06-21 12:03 | US_ITS ---
WS: [id number] ULTRASOUND-GUIDED PARACENTESIS CLINICAL INFORMATION: ascites COMPARISON: None. Procedure Informed consent: The risks, benefits, and alternatives of the procedure were discussed with the riya ent. Verbal and written consent was obtained. Timeout: A timeout was performed to confirm the correct patient, procedure, and site. Preparation: A suitable skin site was identified. The patient was prepped and draped in usual sterile fashion. Lidocaine 1% was used for local anesthesia. Catheter: 4 Gabonese One-step Yueh catheter. Side: RIGHT Lower quadrant. Fluid Volume: 3700 ml Color: Clear yellow DISPOSITION: Discarded safely. Complications: None. Patient disposition: Discharged from the department in stable condition. US/US paracentesis abd w [id number] IMPRESSION: Uncomplicated ultrasound-guided paracentesis. Removal of 3700 cc
[2022-06-21 12:09] VITALS: BP 145/73; PULSE 79; RESP 18; TEMP 36.3; O2SAT 95
== END 2022-06-21 13:52 | disposition home or self-care (01) ==
LOC: GILAB 12:00
PROVIDERS: Radiology Neuroradiology; PCP Internal Medicine; Visit Provider Internal Medicine Nephrology
PROC: (CPT 49082; principal; 2022-06-21 12:30)
DX: R18.8 Other ascites (principal)
CPT/HCPCS: 49083; 96365; P9047

== ENCOUNTER → 2022-06-26 14:11 | Outpatient (BNVA) | payer MEDICARE, MEDICAID, SELFPAY | PROVIDERS: PCP Internal Medicine; Visit Provider Podiatrist Foot & Ankle Surgery | DX: E11.621 Type 2 diabetes mellitus with foot ulcer (principal); E11.42 Type 2 diabetes mellitus with diabetic polyneuropathy; L97.524 Non-pressure chronic ulcer of other part of left foot with necrosis of bone; Z79.4 Long term (current) use of insulin; E11.649 Type 2 diabetes mellitus with hypoglycemia without coma; N18.6 End stage renal disease; Z99.2 Dependence on renal dialysis; L85.3 Xerosis cutis; L84 Corns and callosities; M21.542 Acquired clubfoot, left foot | CPT/HCPCS: 11042 ==

== ENCOUNTER → 2022-06-28 10:19 | Outpatient (BNVA) | payer MEDICARE, MEDICAID, SELFPAY | PROVIDERS: PCP Internal Medicine; Visit Provider Nurse Practitioner Family | DX: L94.2 Calcinosis cutis (principal); I96 Gangrene, not elsewhere classified; E11.622 Type 2 diabetes mellitus with other skin ulcer; L97.122 Non-pressure chronic ulcer of left thigh with fat layer exposed; L98.492 Non-pressure chronic ulcer of skin of other sites with fat layer exposed | CPT/HCPCS: 11042; 11045; A6250 ==

== ENCOUNTER 2022-06-30 17:18 | Emergency (ER) | payer MEDICARE, MEDICAID, SELFPAY ==
[2022-06-30 17:22] VITALS: BP 161/90; PULSE 99; RESP 18; TEMP 36.3; O2SAT 84
--- NOTE | 2022-06-30 17:28 | CTR_ITS ---
PROCEDURE INFORMATION: Exam: CT Head Without Contrast Exam date and time: 06/30/2022 5:37 PM Age: 52 years old Clinical indication: Injury or trauma; Fall; Concussion/head injury TECHNIQUE: Imaging protocol: Computed tomography of the head without contrast. Radiation optimization: All CT scans at this facility use at least one of these dose optimization techniques: automated exposure control; mA and/or kV adjustment per patient size (includes targeted exams where dose is matched to clinical indication); or iterative reconstruction. COMPARISON: No relevant prior studies available. RADIATION DOSE METRICS: Total DLP (mGy-cm): 1316.03 FINDINGS: Brain: Mild diffuse white matter disease likely reflecting chronic microvascular ischemic changes. Cerebral ventricles: No ventriculomegaly. Paranasal sinuses: Visualized sinuses are unremarkable. No fluid levels. Mastoid air cells: Visualized mastoid air cells are well aerated. Bones/joints: Unremarkable. No acute fracture. Soft tissues: Posterior scalp soft tissue swelling and subcutaneous emphysema. CT/CT head wo con* [id number] IMPRESSION: 1. Negative for intracranial hemorrhage or mass effect. 2. Posterior scalp soft tissue swelling and subcutaneous emphysema.
--- NOTE | 2022-06-30 17:33 | W.ED.FALL ---
HPI - Fall General: Chief Complaint: Fall Stated Complaint: Fall Time Seen by Provider: 06/30/22 17:26 Source: patient Mode of arrival: EMS Limitations: no limitations History of Present Illness: Patient was transported by EMS. Apparently was attempting to sit back in a chair and lost his balance and fell backwards striking his head. He denies loss of consciousness. He denies other injury. He states he has peripheral neuropathy as well as has a diabetic ulcer on his left foot and has a orthotic on that left leg and foot which affects his balance. He denies any antiplatelet or anticoagulant medications. He has a history of chronic kidney disease with hemodialysis Sunday as well as diabetes with calciphylaxis and chronic diabetic foot ulcers. Fall from: standing Place fall occurred: home Loss of consciousness: None Context: tripped/slipped Associated symptoms-after fall: Reports difficulty walking and headache(s); Denies abdominal pain, chest pain or neck pain Review of Systems Const: Denies: fever(s) or chills Eyes: Denies: change in vision ENMT: Denies: throat pain, odynophagia, nasal discharge or nasal congestion Card: Denies: chest pain, palpitations, irregular heart rhythm, edema, syncope or pre-syncope Resp: Denies: dyspnea, productive cough or non-productive cough GI: Denies: abdominal pain, nausea or vomiting : Reports: oliguria; Denies: flank pain Musc: Denies: neck pain or back pain Neuro: Reports: headache(s), numbness in extremities and difficulty walking; Denies: weakness in extremities, Slurred speech present or seizure-like activity [facility] ED PFSH: Medical History Anemia BMI 50.0-59.9, adult Cardiac arrest (~07/2020) when had covid Cellulitis CHF (congestive heart failure), NYHA class III Chronic respiratory failure with hypoxia and hypercapnia Chronic ulcer of left foot with fat layer exposed Chronic venous insufficiency COPD (chronic obstructive pulmonary disease) Diabetes Diabetic foot ulcers ESRD (end stage renal disease) on dialysis First degree heart block Fracture of fifth metatarsal bone of left foot Fracture of fourth metatarsal bone of left foot Fracture, thoracic vertebra T7-T8 History of renal cell carcinoma Hypertension Lung nodule Morbid obesity with BMI of 40.0-44.9, adult Neuropathy Non-healing ulcer of right foot with fat layer exposed Non-pressure chronic ulcer of other 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 No recurrence for long-term follow-up with some suspicion on CT scan April 2020. Restrictive lung disease Type 2 diabetes mellitus with diabetic polyneuropathy Urinary retention Surgical History H/O partial nephrectomy bilateral H/O wisdom tooth extraction History of cataract surgery Hx of lymph node excision Family History Father , at age 65 Diabetes Cancer Metastatic prostate cancer to liver Mother , at age 72 Diabetes Grandfather Diabetes Cancer Other Anemia Hyperlipidemia Social History Smoking and tobacco status: never smoked Second hand smoke exposure: Yes Smoking risk assessment/counseling performed?: Yes Alcohol intake: current Alcohol intake frequency: holidays/special occasions only Lives independently: Yes Household members: spouse Housing: House Marital status: service: No Current occupational status: retired Pets and animals: Yes History of recent travel: No Current gender identity: Male Physical Exam Narrative: EXAM NARRATIVE: He is alert makes good eye contact answers questions appropriately. Const: COMMON NORMALS: no acute distress, patient oriented x3 and alert GENERAL APPEARANCE: cooperative NUTRITIONAL APPEARANCE: overweight HENMT: COMMON NORMALS: Normal nasal mucous membranes and turbinates present and moist oral mucous membranes HEAD & SCALP: laceration left parietal Details of head laceration: irregular and actively bleeding Head laceration size: 1.97 in; no palpable skull fracture HEAD IMAGES: 1. Laceration 5 cm in length FACE & SINUS: normal facial exam NOSE: Normal nasal mucous membranes and turbinates present Eye: COMMON NORMALS: Equal, round and reactive pupils present and EOMs intact bilaterally PUPIL: Yes Equal, round and reactive pupils present Neck/C-Spine: CERVICAL SPINE: Yes cervical ROM normal (Forward bending, backward bending, rotation left and right), No Cervical spine tenderness, No step off deformity, No Paracervical muscle tenderness, No Paracervical spasm and No Trapezius muscle tenderness Chest: COMMONS NORMALS: normal inspection of the chest Resp: COMMON NORMALS: normal respiratory effort, No retractions and No use of accessory muscles Cardio: COMMON NORMALS: regular rate, regular rhythm, No murmurs present (Cardio) and Peripheral pulses 2+ throughout RATE: regular rate RHYTHM: regular rhythm PERIPHERAL PULSES: Peripheral pulses 2+ throughout GI: COMMON NORMALS: Soft to palpation PALPATION: Yes Soft to palpation Back/Pelvis: COMMON NORMALS: thoracic and lumbar spine normal to inspection, no thoracic nor lumbar tenderness, thoraco-lumbar ROM normal and straight leg raise negative bilaterally Extremity: COMMON NORMALS: full ROM, capillary refill normal and no pedal edema NARRATIVE EXTREMITY EXAM: He has hyperpigmentation of both lower extremities. Left lower extremity is is enclosed in a foot orthotic. Neuro: COMMON NORMALS: patient oriented x3, moves all extremities and no focal motor deficits SENSORIUM/ORIENTATION: Yes alert Psych: COMMON NORMALS: mental status grossly normal Skin: COMMON NORMALS: no rashes or lesions noted GENERAL SKIN EXAM: no rashes or lesions noted TRAUMA: laceration (Left occiput as described) Procedures Laceration Laceration 1: Site: scalp (Left occipital) Size (cm): 5 Description: irregular and clean Depth: simple, single layer Local Anesthetic: lidocaine 1% and with epi Pre-repair: wound explored (No extension to the galea.) Skin layer closed with: other (Prolene) Size (cm): 3-0 Number of sutures: 9 Technique: simple, interrupted Course Reevaluation(s): Reevaluation #1: Repeat evaluation the patient reveals him to be alert and cooperative and his normal state of health according to family members. Bandage was taken down on his scalp which revealed a large occipital laceration. We will go ahead and move him to a room with better light and access. Time: 18:16 Reevaluation #2: Occipital scalp laceration was repaired (see procedure note). He was having active venous bleeding which was controlled using epinephrine with lidocaine direct pressure as well as a large interrupted sutures over the site. No active bleeding once repair completed. He does have a hematoma under the laceration site. Family is currently present and I explained post laceration care and follow-up. Time: 19:03 Vital Signs: Vital signs: Vital Signs Temperature 97.4 F L 06/30/22 17:22 Pulse Rate 89 06/30/22 18:32 Respiratory Rate 18 06/30/22 17:22 Blood Pressure 161/90 06/30/22 17:22 Pulse Oximetry 95 06/30/22 18:32 Oxygen Delivery Me thod 06/30/22 17:22 MDM - Fall Medical Decision Making Gentleman who suffered a ground level fall from misstep falling backwards and striking his occipital region of his head against the floor. He denied loss of consciousness. He was not any blood thinners or antiplatelet agents. He was evaluated and found to have a occipital laceration without any other injuries. There was no syncope or other prodrome to his fall. His CT scan was reassuring and his scalp laceration was repaired with interrupted sutures controlling his bleeding. He is stable at this time to be discharged with family with routine follow-up and return precautions discussed. Medical Records I reviewed the patient's medical records. Lab Data I reviewed the patient's lab results. Radiology Impressions Head CT 06/30/22 17:28 IMPRESSION: 1. Negative for intracranial hemorrhage or mass effect. 2. Posterior scalp soft tissue swelling and subcutaneous emphysema. Discharge Plan Discharge Patient Disposition: Home Clinical Impression: Laceration of scalp Condition: Stable Prescriptions: No Action (DME) Wheel Chair See Rx Instructions .Route .MEDSUPPLY Qty: 1 0RF Rx Instructions: As directed HOME (DME) Compression Stockings See Rx Instructions .Route .MEDSUPPLY Qty: 1 0RF Rx Instructions: As directed ammonium lactate 12 % lotion 1 applic topical DAILY Qty: 225 0RF Rx Instructions: Apply to affected area once daily sevelamer carbonate [Renvela] 800 mg tablet See Rx Instructions .ROUTE .COMPLEX Rx Instructions: 2 tabs po tid with meals and 1 tab bid with snacks venlafaxine 150 mg capsule,extended release 24hr 150 mg PO QAM RenaPlex-D 800 mcg-12.5 mg -2,000 unit tablet 1 tab PO QAM atorvastatin 80 mg tablet 80 mg PO QAM trazodone 50 mg tablet 50 mg PO EVERY OTHER DAY ropinirole 0.25 mg tablet 0.25 mg PO BEDTIME PRN (Reason: Restless Leg(S)) gabapentin 300 mg capsule 300 mg PO DAILY PRN (Reason: Pain) hydroxyzine pamoate 25 mg capsule 25 mg PO BEDTIME PRN (Reason: Itching) Rexulti 0.25 mg tablet 0.25 mg PO QAM Lokelma 5 gram powder in packet See Rx Instructions .ROUTE .COMPLEX Rx Instructions: 1 packet po on mon,wed,fri, sat and sun (non dialysis days) sodium thiosulfate 1 gram/10 mL (100 mg/mL) Solution 1 g IV .3X WEEK Rx Instructions: goes in with dialysis hydrocodone-acetaminophen 5-325 mg tablet 1 tab PO Q6H PRN (Reason: Pain) torsemide 100 mg tablet 100 mg PO DAILY Hold Instructions: Resume on 03/27/22. Vitamin C (ascorbate calcium) 814 mg/gram Powder 814 mg PO DAILY Men's Multivitamin 400-20-300 mcg Tablet 1 tab PO DAILY hydralazine 10 mg tablet 10 mg PO TID PRN (Reason: Itching) ondansetron HCl 4 mg tablet 4 mg PO Q8H PRN (Reason: Nausea) cholecalciferol (vitamin D3) [Vitamin D3] 25 mcg (1,000 unit) Tablet 25 mcg PO DAILY Diflucan 100 mg tablet 100 mg PO DAILY Discharge Orders: Discharge ED (Routine); Ordered 06/30/22 Ordered By: Gary Le Referrals: Sulma Wetzel MD [Primary Care Provider] - Discharge Diet: Usual diet Discharge Activity: Increase activity as tolerated Patient Instructions: Scalp Laceration, Head Injury (ED), Opioid Safety, Pain Management Activity Restrictions/Additional Instructions: Resume normal activity. Leave the pressure dressing on that we have placed in the emergency department this evening until tomorrow and then you may remove it. You may gently clean his scalp starting tomorrow evening. Look for any signs of redness drainage indicating possible infection which is unlikely in his scalp wound. Return to this department or your family physician for removal of the sutures in 7-10 days. If you have any other concerns return to this or the nearest emergency department immediately. Coding Level of Care Code ED Palliative Care Physician for Patricia Reid
[2022-06-30 18:32] VITALS: PULSE 89; O2SAT 95
[2022-06-30 19:40] VITALS: BP 100/59; PULSE 92; RESP 16; TEMP 36.8; O2SAT 96
== END 2022-06-30 20:10 | disposition home or self-care (01) ==
PROVIDERS: Emergency Provider Emergency Medicine; PCP Internal Medicine
DX: S01.01XA Laceration without foreign body of scalp, initial encounter (principal); Z77.22 Contact with and (suspected) exposure to environmental tobacco smoke (acute) (chronic); J44.9 Chronic obstructive pulmonary disease, unspecified; E11.22 Type 2 diabetes mellitus with diabetic chronic kidney disease; I12.0 Hypertensive chronic kidney disease with stage 5 chronic kidney disease or end stage renal disease; N18.6 End stage renal disease; Z90.5 Acquired absence of kidney; Z85.528 Personal history of other malignant neoplasm of kidney; W07.XXXA Fall from chair, initial encounter
CPT/HCPCS: 12002; 70450; 99284

== ENCOUNTER → 2022-07-03 11:29 | Outpatient (BNVA) | payer MEDICARE, MEDICAID, SELFPAY | PROVIDERS: PCP Internal Medicine; Visit Provider Podiatrist Foot & Ankle Surgery | DX: E11.621 Type 2 diabetes mellitus with foot ulcer (principal); L97.522 Non-pressure chronic ulcer of other part of left foot with fat layer exposed; L97.519 Non-pressure chronic ulcer of other part of right foot with unspecified severity; E11.42 Type 2 diabetes mellitus with diabetic polyneuropathy; Z79.4 Long term (current) use of insulin; E11.649 Type 2 diabetes mellitus with hypoglycemia without coma; N18.6 End stage renal disease; Z99.2 Dependence on renal dialysis; L85.3 Xerosis cutis; L84 Corns and callosities; M21.542 Acquired clubfoot, left foot | CPT/HCPCS: 11042 ==

== ENCOUNTER 2022-07-05 11:42 | Day surgery (SDC) | payer MEDICARE, MEDICAID, SELFPAY ==
[2022-07-03 10:57] VITALS: BMI 36.1
[2022-07-05 12:01] VITALS: BP 118/66; PULSE 92; RESP 18; TEMP 36.4; O2SAT 96
--- NOTE | 2022-07-05 12:05 | US_ITS ---
WS: [email or web address] ULTRASOUND-GUIDED PARACENTESIS CLINICAL INFORMATION: Ascites COMPARISON: None. Procedure Informed consent: The risks, benefits, and alternatives of the procedure were discussed with the riya ent. Verbal and written consent was obtained. Timeout: A timeout was performed to confirm the correct patient, procedure, and site. Preparation: A suitable skin site was identified. The patient was prepped and draped in usual sterile fashion. Lidocaine 1% was used for local anesthesia. Catheter: 4 Serbian One-step Yueh catheter. Side: RIGHT Lower quadrant. Fluid Volume: 3700 ml Color: Clear yellow DISPOSITION: Discarded safely. Complications: None. Patient disposition: Discharged from the department in stable condition. US/US paracentesis abd w [id number] IMPRESSION: Uncomplicated ultrasound-guided paracentesis. Removal of 3700 cc
--- NOTE | 2022-07-05 14:21 | PC.NURSE ---
patient has been resting quietly throughout procedure. no distress noted.
--- NOTE | 2022-07-05 14:23 | PC.NURSE ---
patient snoring at times
== END 2022-07-05 14:37 | disposition home or self-care (01) ==
LOC: GILAB 11:44
PROVIDERS: Radiology Neuroradiology; PCP Internal Medicine; Visit Provider Internal Medicine Nephrology
PROC: (CPT 49082; principal; 2022-07-05 12:30)
DX: R18.8 Other ascites (principal); L97.812 Non-pressure chronic ulcer of other part of right lower leg with fat layer exposed
CPT/HCPCS: 11042; 11045; 49083; 96365; P9047

== ENCOUNTER → 2022-07-10 14:31 | Outpatient (BNVA) | payer MEDICARE, MEDICAID, SELFPAY | PROVIDERS: PCP Internal Medicine; Visit Provider Podiatrist Foot & Ankle Surgery | DX: L97.524 Non-pressure chronic ulcer of other part of left foot with necrosis of bone (principal); E11.621 Type 2 diabetes mellitus with foot ulcer; E11.42 Type 2 diabetes mellitus with diabetic polyneuropathy; Z79.4 Long term (current) use of insulin; E11.649 Type 2 diabetes mellitus with hypoglycemia without coma; N18.6 End stage renal disease; Z99.2 Dependence on renal dialysis; L85.3 Xerosis cutis; L84 Corns and callosities; M21.542 Acquired clubfoot, left foot | CPT/HCPCS: 11042 ==

== ENCOUNTER → 2022-07-17 09:44 | Outpatient (BNVA) | payer MEDICARE, MEDICAID, SELFPAY | PROVIDERS: PCP Internal Medicine; Visit Provider Podiatrist Foot & Ankle Surgery | DX: E11.42 Type 2 diabetes mellitus with diabetic polyneuropathy (principal); L97.524 Non-pressure chronic ulcer of other part of left foot with necrosis of bone; Z79.4 Long term (current) use of insulin; E11.649 Type 2 diabetes mellitus with hypoglycemia without coma; N18.6 End stage renal disease; Z99.2 Dependence on renal dialysis; L85.3 Xerosis cutis; L84 Corns and callosities; M21.542 Acquired clubfoot, left foot; E11.621 Type 2 diabetes mellitus with foot ulcer | CPT/HCPCS: 11042 ==

== ENCOUNTER 2022-07-19 11:50 | Day surgery (SDC) | payer MEDICARE, MEDICAID, SELFPAY ==
[2022-07-18 12:08] VITALS: BMI 36.9
--- NOTE | 2022-07-19 12:14 | US_ITS ---
WS: [id number] ULTRASOUND-GUIDED PARACENTESIS CLINICAL INFORMATION: Abdominal Ascites COMPARISON: None. Procedure Informed consent: The risks, benefits, and alternatives of the procedure were discussed with the riya ent. Verbal and written consent was obtained. Timeout: A timeout was performed to confirm the correct patient, procedure, and site. Preparation: A suitable skin site was identified. The patient was prepped and draped in usual sterile fashion. Lidocaine 1% was used for local anesthesia. Catheter: 4 [place] Citizen One-step Yueh catheter. Side: RIGHT Lower quadrant. Fluid Volume: 4800 ml Color: Clear yellow DISPOSITION: Discarded safely. Complications: None. Patient disposition: Discharged from the department in stable condition. US/US paracentesis abd w [id number] IMPRESSION: Uncomplicated ultrasound-guided paracentesis. Removal of 4800 cc
[2022-07-19 12:21] VITALS: BP 160/81; PULSE 95; RESP 18; TEMP 36.1; O2SAT 92
[2022-07-19 14:04] VITALS: BP 119/65; PULSE 93; RESP 17; O2SAT 96
== END 2022-07-19 14:13 | disposition home or self-care (01) ==
LOC: GILAB 11:51
PROVIDERS: Radiology Neuroradiology; PCP Internal Medicine; Visit Provider Internal Medicine Nephrology
PROC: (CPT 49082; principal; 2022-07-19 12:30)
DX: R18.8 Other ascites (principal); E11.622 Type 2 diabetes mellitus with other skin ulcer; L98.499 Non-pressure chronic ulcer of skin of other sites with unspecified severity
CPT/HCPCS: 11042; 11045; 49083; 96365; P9046

== ENCOUNTER → 2022-07-26 08:18 | Outpatient (BNVA) | payer MEDICARE, MEDICAID, SELFPAY | PROVIDERS: PCP Internal Medicine; Visit Provider Podiatrist Foot & Ankle Surgery | DX: E11.621 Type 2 diabetes mellitus with foot ulcer (principal); I96 Gangrene, not elsewhere classified; L97.522 Non-pressure chronic ulcer of other part of left foot with fat layer exposed; L94.2 Calcinosis cutis; L98.492 Non-pressure chronic ulcer of skin of other sites with fat layer exposed; L84 Corns and callosities; E11.42 Type 2 diabetes mellitus with diabetic polyneuropathy; L97.524 Non-pressure chronic ulcer of other part of left foot with necrosis of bone; Z79.4 Long term (current) use of insulin; E11.649 Type 2 diabetes mellitus with hypoglycemia without coma; N18.6 End stage renal disease; Z99.2 Dependence on renal dialysis; L85.3 Xerosis cutis; M21.542 Acquired clubfoot, left foot | CPT/HCPCS: 11042; 11045; 11055; 88304; 88305; 99213; A6446 ==

== ENCOUNTER 2022-08-02 13:28 | Day surgery (SDC) | payer MEDICARE, MEDICAID, SELFPAY ==
[2022-07-28 10:35] VITALS: BMI 38.2
--- NOTE | 2022-08-02 13:32 | US_ITS ---
WS: [email or web address] ULTRASOUND-GUIDED PARACENTESIS CLINICAL INFORMATION: Ascites COMPARISON: None. Procedure Informed consent: The risks, benefits, and alternatives of the procedure were discussed with the riya ent. Verbal and written consent was obtained. Timeout: A timeout was performed to confirm the correct patient, procedure, and site. Preparation: A suitable skin site was identified. The patient was prepped and draped in usual sterile fashion. Lidocaine 1% was used for local anesthesia. Catheter: 4 Malagasy One-step Yueh catheter. Side: RIGHT Lower quadrant. Fluid Volume: 6700 ml Color: Clear yellow DISPOSITION: Discarded safely. Complications: None. Patient disposition: Discharged from the department in stable condition. US/US paracentesis abd w [id number] IMPRESSION: Uncomplicated ultrasound-guided paracentesis. Removal of 6700 cc
== END 2022-08-02 15:58 | disposition home or self-care (01) ==
LOC: GILAB 13:29
PROVIDERS: PCP Internal Medicine; Visit Provider Internal Medicine Nephrology
PROC: (CPT 49082; principal; 2022-08-02 14:30)
DX: R18.8 Other ascites (principal); E11.622 Type 2 diabetes mellitus with other skin ulcer
CPT/HCPCS: 11042; 49083; 97597; A6252; P9046

== ENCOUNTER → 2022-08-09 17:26 | Outpatient (BNVA) | payer MEDICARE, MEDICAID, SELFPAY | PROVIDERS: PCP Internal Medicine; Visit Provider Thoracic Surgery (Cardiothoracic Vascular Surgery) | DX: I96 Gangrene, not elsewhere classified (principal); E11.621 Type 2 diabetes mellitus with foot ulcer; L89.892 Pressure ulcer of other site, stage 2; E11.622 Type 2 diabetes mellitus with other skin ulcer; L97.822 Non-pressure chronic ulcer of other part of left lower leg with fat layer exposed; L94.2 Calcinosis cutis; L98.492 Non-pressure chronic ulcer of skin of other sites with fat layer exposed | CPT/HCPCS: 11042; 97605; A6252 ==

== ENCOUNTER 2022-08-10 12:08 | Outpatient (CLI) | payer MEDICARE, MEDICAID, SELFPAY ==
--- NOTE | 2022-08-10 12:19 | XR_ITS ---
WS: [email or web address] XR foot LT min 3V* [id number] REASON FOR EXAM: non-healing ulcer; rule out osteomyelitis FINDINGS: The proximal most fifth metatarsal demonstrates permeation, periosteal reaction, and bone destruction There appears to be similar but earlier findings in the base of the third and fourth metatarsals. The lateral cuneiform and the third to the fifth metatarsal cuneiform joints may be involved. XR/XR foot LT min 3V* [id number] IMPRESSION: Findings that indicate subacute/chronic osteomyelitis in the base of the third through the fifth metatarsals and possibly involving the lateral cuneiform and cuneiform metatarsal joints.
== END 2022-08-10 12:09 | disposition home or self-care (01) ==
PROVIDERS: PCP Internal Medicine; Visit Provider Thoracic Surgery (Cardiothoracic Vascular Surgery)
DX: E11.621 Type 2 diabetes mellitus with foot ulcer (principal); L97.509 Non-pressure chronic ulcer of other part of unspecified foot with unspecified severity
CPT/HCPCS: 73630

== ENCOUNTER 2022-08-16 12:15 | Day surgery (SDC) | payer MEDICARE, MEDICAID, SELFPAY ==
[2022-08-15 12:16] VITALS: BMI 38.2
--- NOTE | 2022-08-16 12:27 | US_ITS ---
WS: [id number] ULTRASOUND-GUIDED PARACENTESIS CLINICAL INFORMATION: Ascites COMPARISON: None. Procedure Informed consent: The risks, benefits, and alternatives of the procedure were discussed with the riya ent. Verbal and written consent was obtained. Timeout: A timeout was performed to confirm the correct patient, procedure, and site. Preparation: A suitable skin site was identified. The patient was prepped and draped in usual sterile fashion. Lidocaine 1% was used for local anesthesia. Catheter: 4 [place] One-step Yueh catheter. Side: RIGHT Lower quadrant. Fluid Volume: 7200 ml Color: Clear yellow DISPOSITION: Discarded safely. Complications: None. Patient disposition: Discharged from the department in stable condition. US/US paracentesis abd w [id number] IMPRESSION: Uncomplicated ultrasound-guided paracentesis. Removal of 7200 cc ascites
[2022-08-16 12:44] VITALS: BP 150/75; PULSE 93; RESP 18; TEMP 36.3; O2SAT 92
== END 2022-08-16 14:55 | disposition home or self-care (01) ==
LOC: GILAB 12:18
PROVIDERS: Radiology Neuroradiology; PCP Internal Medicine; Visit Provider Internal Medicine Nephrology
PROC: 0W9G3ZZ Drainage of Peritoneal Cavity, Percutaneous Approach (ICD-10-PCS; principal; 2022-08-16 13:00)
DX: R18.8 Other ascites (principal); E11.621 Type 2 diabetes mellitus with foot ulcer; I96 Gangrene, not elsewhere classified; L89.892 Pressure ulcer of other site, stage 2; L89.312 Pressure ulcer of right buttock, stage 2; L89.322 Pressure ulcer of left buttock, stage 2; E11.622 Type 2 diabetes mellitus with other skin ulcer; L97.822 Non-pressure chronic ulcer of other part of left lower leg with fat layer exposed; L98.492 Non-pressure chronic ulcer of skin of other sites with fat layer exposed; L94.2 Calcinosis cutis
CPT/HCPCS: 11042; 11045; 49083; 97597; 97605; A6212 ×2; A6237; A6250; A6252; P9046

== ENCOUNTER → 2022-08-21 10:52 | Outpatient (BNVA) | payer MEDICARE, MEDICAID, SELFPAY | PROVIDERS: PCP Internal Medicine; Visit Provider Thoracic Surgery (Cardiothoracic Vascular Surgery) | DX: I96 Gangrene, not elsewhere classified (principal); E11.621 Type 2 diabetes mellitus with foot ulcer; L89.312 Pressure ulcer of right buttock, stage 2; L89.322 Pressure ulcer of left buttock, stage 2; L89.892 Pressure ulcer of other site, stage 2; E11.622 Type 2 diabetes mellitus with other skin ulcer; L97.822 Non-pressure chronic ulcer of other part of left lower leg with fat layer exposed; L94.2 Calcinosis cutis | CPT/HCPCS: 11042; 11043; 11046; 88305; 97597 ==

== ENCOUNTER → 2022-08-28 11:31 | Outpatient (BNVA) | payer MEDICARE, MEDICAID, SELFPAY | PROVIDERS: PCP Internal Medicine; Visit Provider Thoracic Surgery (Cardiothoracic Vascular Surgery) | DX: I96 Gangrene, not elsewhere classified (principal); E11.621 Type 2 diabetes mellitus with foot ulcer; L89.892 Pressure ulcer of other site, stage 2; E11.622 Type 2 diabetes mellitus with other skin ulcer; L89.312 Pressure ulcer of right buttock, stage 2; L89.322 Pressure ulcer of left buttock, stage 2; L94.2 Calcinosis cutis | CPT/HCPCS: 11042; 11043; 11046; 87070; 87077; 87176; 87186; 87205; 97597; A6197; A6252 ==

== ENCOUNTER → 2022-08-30 11:57 | Day surgery (SDC) | payer MEDICARE, MEDICAID, SELFPAY ==
[2022-08-29 12:02] VITALS: BMI 38.2
--- NOTE | 2022-08-30 12:11 | US_ITS ---
WS: [id number] ULTRASOUND-GUIDED PARACENTESIS CLINICAL INFORMATION: ascites COMPARISON: None. Procedure Informed consent: The risks, benefits, and alternatives of the procedure were discussed with the riya ent. Verbal and written consent was obtained. Timeout: A timeout was performed to confirm the correct patient, procedure, and site. Preparation: A suitable skin site was identified. The patient was prepped and draped in usual sterile fashion. Lidocaine 1% was used for local anesthesia. Catheter: 4 [place] One-step Yueh catheter. Side: RIGHT Lower quadrant. Fluid Volume: 8200 ml Color: Clear yellow DISPOSITION: Discarded safely. Complications: None. Patient disposition: Discharged from the department in stable condition. US/US paracentesis abd w [id number] IMPRESSION: Uncomplicated ultrasound-guided paracentesis. Removal of 8200 cc
[2022-08-30 12:12] VITALS: BP 115/65; PULSE 85; RESP 20; TEMP 36.7; O2SAT 91
== END ==
PROVIDERS: Radiology Neuroradiology; PCP Internal Medicine; Visit Provider Internal Medicine Nephrology
PROC: (CPT 49082; principal; 2022-08-30 13:00)
DX: R18.8 Other ascites (principal)
CPT/HCPCS: 49083; 96365; P9046

== ENCOUNTER → 2022-09-11 11:26 | Outpatient (BNVA) | payer MEDICARE, MEDICAID, SELFPAY | PROVIDERS: PCP Internal Medicine; Visit Provider Thoracic Surgery (Cardiothoracic Vascular Surgery) | DX: I96 Gangrene, not elsewhere classified (principal); E11.621 Type 2 diabetes mellitus with foot ulcer; L89.892 Pressure ulcer of other site, stage 2; L89.894 Pressure ulcer of other site, stage 4; L94.2 Calcinosis cutis; L98.492 Non-pressure chronic ulcer of skin of other sites with fat layer exposed; Z09 Encounter for follow-up examination after completed treatment for conditions other than malignant neoplasm | CPT/HCPCS: 11042; 11044; 11047; 87070; 87077; 87176; 87186; 87205 ==

== ENCOUNTER 2022-09-15 09:48 | Day surgery (SDC) | payer MEDICARE, MEDICAID, SELFPAY ==
[2022-09-11 13:27] VITALS: BMI 38.2
[2022-09-15 10:15] VITALS: BP 151/68; PULSE 105; RESP 20; TEMP 36.8; O2SAT 92
[2022-09-15 10:20] VITALS: PULSE 102; RESP 20; O2SAT 84
--- NOTE | 2022-09-15 10:40 | US_ITS ---
WS: [id number] ULTRASOUND-GUIDED PARACENTESIS CLINICAL INFORMATION: Ascites COMPARISON: None. Procedure Informed consent: The risks, benefits, and alternatives of the procedure were discussed with the riya ent. Verbal and written consent was obtained. Timeout: A timeout was performed to confirm the correct patient, procedure, and site. Preparation: A suitable skin site was identified. The patient was prepped and draped in usual sterile fashion. Lidocaine 1% was used for local anesthesia. Catheter: 4 [place] One-step Yueh catheter. Side: RIGHT Lower quadrant. Fluid Volume: 6700 ml Color: Clear yellow DISPOSITION: Discarded safely. Complications: None. Patient disposition: Discharged from the department in stable condition. US/US paracentesis abd w [id number] IMPRESSION: Uncomplicated ultrasound-guided paracentesis. Removal of 6700 cc
--- NOTE | 2022-09-15 10:44 | PC.NURSE ---
When patient arrived, stated he pooped his pants. Assisted patient in bathroom, no soil noted. Patient was able to have bowel movement while on toilet. Assisted in cleaning. Assisted with placing diaper. 1015 Patient to GI room 1, assisted to stretcher, patient denies pain. vital signs taken. O2 sat noted 92% on RA. As patient laid there noted O2 sat trending down to 84%, good wave form noted. no sob, breathing even and non labored. lungs CTA in upper lobes, diminished in lower lobes. S1S2 audible. 1020 Yudith SCHERERdocument analyst nurse notified. 1025 Yudith SCHERER spoke with charge nurse at [facility]. States to proceed with procedure, place patient on low O2, and take to ER after paracentesis. Stated to give albumin.
[2022-09-15 10:55] VITALS: PULSE 103; RESP 20; O2SAT 85
[2022-09-15 10:56] VITALS: BP 138/66; PULSE 102; RESP 20; O2SAT 92
--- NOTE | 2022-09-15 10:57 | PC.NURSE ---
1056 when patient resting quietly O2 sat trends from 92%-84%. no shortness of breath noted, patient denies c/o pain or sob. no distress noted. respirations even and non labored.
--- NOTE | 2022-09-15 10:59 | PC.NURSE ---
1058 patient states he has buttock bed sores, assisted to reposition off back side. with movement O2 sat up to 92%, once settled and laying quietly O2 sat 86-88%, no changes in assessment.
[2022-09-15] MEDS: albumin 75 G/300 ML BAG 150 G IV (11:50)
[2022-09-15 13:25] VITALS: BP 99/50; PULSE 91; RESP 20; O2SAT 95
--- NOTE | 2022-09-15 13:31 | PC.NURSE ---
1250 patient incontinent of large brown soft stool. Three nurses assisted and cleaned patient, changed linens. Called to have her bring clean pair of shorts.
== END 2022-09-15 13:31 | disposition home or self-care (01) ==
LOC: GILAB 09:49
PROVIDERS: Radiology Neuroradiology; PCP Internal Medicine; Visit Provider Internal Medicine Nephrology
PROC: (CPT 49082; principal; 2022-09-15 10:15)
DX: R18.8 Other ascites (principal)
CPT/HCPCS: 49083; 96360; P9046

== ENCOUNTER 2022-09-18 13:07 | Inpatient (IN) | payer MEDICARE, MEDICAID, SELFPAY ==
[2022-09-18] VITALS (40 sets, daily range): BP systolic 110–157; BP diastolic 75–82; PULSE 87–99; RESP 16–18; TEMP 36.9–37.2; O2SAT 82–100
[2022-09-18 14:04] LABS: Glucose Point of Care 241 mg/dL (70-110)
--- NOTE | 2022-09-18 14:10 | CT_ITS ---
WS: [id number] CONTRAST-ENHANCED CT LEFT FOOT TECHNIQUE: Contrast-enhanced CT LEFT foot with coronal and sagittal reformatted images. CLINICAL INFORMATION: diabetic ulcer, fevers COMPARISON: None. DLP: 144.[address] scans at [facility] use at least one of these dose optimization techniques: automated e xposure control; mA and/or kV adjustment per patient size (includes targeted exams where dose is matc hed to clinical indication); or iterative reconstruction. FINDINGS: Diffuse subcutaneous edema with induration involving the LEFT hindfoot extending into the midfoot and forefoot soft tissues compatible with cellulitis. Demineralization LEFT foot. Vascular calcification . Ulceration involving the lateral foot overlying the base of the 4th and 5th metatarsals with associ ated destructive bony changes and small pockets of soft tissue air. Findings compatible with osteomye litis. In addition, this extends to involve the cuboid with interosseous air and destructive changes compati ble with osteomyelitis. No drainable well-formed abscess or fluid collection. Achilles enthesophyte. CT/CT foot LT w con [id number] IMPRESSION: 1. Evidence of osteomyelitis involving the base of the 4th and 5th metatarsals as well as the adjacent cuboid. 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 Ulceration involving the lateral aspect of the foot overlying the 4th and 5 th metatarsals. No well-formed drainable fluid collection or drainable abscess. 3. Diffuse cellulitis. 4. Demineralization LEFT foot. Attempted notification VERO Toro at 09/18/2022 3:16 PM.
--- NOTE | 2022-09-18 14:12 | W.ED.EXTPRO ---
Documented by User: VERO Toro 09/20/22 07:01 HPI - Extremity Problem General: Chief complaint: Extremity Problem,Nontraumatic Stated complaint: fever sent by wound care Time Seen by Provider: 09/18/22 13:39 Source: patient Mode of arrival: wheelchair Limitations: no limitations History of Present Illness: Patient is a 52-year-old male with a very extensive past medical history here after he was sent here by Dr. Moreno for evaluation of a left foot ulcer/wound. Patient states he has had the wound for over a year now. He was initially being seen by podiatry and wound care but over the past few months he has only been receiving wound care services. He has been seeing Dr. Moreno and has known osteomyelitis in the foot. PICC line recently was placed and daptomycin antibiotics were initiated based on recent cultures. Patient reportedly contacted Dr. Moreno today with complaints of low-grade fevers and worsening foot drainage. Tiffanie evaluated patient and recommended he come to the ED for CT imaging of the foot to look for drainable abscess. MD Complaint: extremity pain and extremity swelling Pain Consistency: constant Location: left and other (foot) Radiation: none Relieving factors: nothing Exacerbating factors: nothing Associated symptoms: Reports fever(s); Deny chest pain Review of Systems Const: Reports: fever(s), chills and fatigue Card: Denies: chest pain Resp: Denies: dyspnea, productive cough, non-productive cough or chest congestion GI: Denies: nausea, vomiting or diarrhea : Reports: other (makes very little urine with his ESRD); Denies: flank pain Musc: Reports: extremity pain and extremity swelling; Denies: neck pain or back pain Neuro: Denies: headache(s) PFS ED PFSH: Medical History Anemia BMI 50.0-59.9, adult Cardiac arrest (~07/2020) when had covid Cellulitis CHF (congestive heart failure), NYHA class III Chronic respiratory failure with hypoxia and hypercapnia Chronic ulcer of left foot with fat layer exposed Chronic venous insufficiency COPD (chronic obstructive pulmonary disease) Diabetes Diabetic foot ulcers ESRD (end stage renal disease) on dialysis First degree heart block Fracture of fifth metatarsal bone of left foot Fracture of fourth metatarsal bone of left foot Fracture, thoracic vertebra T7-T8 History of renal cell carcinoma Hypertension Lung nodule Morbid obesity with BMI of 40.0-44.9, adult Neuropathy Non-healing ulcer of right foot with fat layer exposed Non-pressure chronic ulcer of other 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 No recurrence for long-term follow-up with some suspicion on CT scan April 2020. Restrictive lung disease Type 2 diabetes mellitus with diabetic polyneuropathy Urinary retention Surgical History H/O partial nephrectomy bilateral H/O wisdom tooth extraction History of cataract surgery Hx of lymph node excision Family History Father , at age 65 Diabetes Cancer Metastatic prostate cancer to liver Mother , at age 72 Diabetes Grandfather Diabetes Cancer Other Anemia Hyperlipidemia Social History Smoking and tobacco status: never smoked Second hand smoke exposure: Yes Smoking risk assessment/counseling performed?: Yes Alcohol intake: current Alcohol intake frequency: holidays/special occasions only Lives independently: Yes Household members: spouse Housing: House Marital status: service: No Current occupational status: retired Pets and animals: Yes Current gender identity: Male Physical Exam Const: COMMON NORMALS: no acute distress, no limitations and alert GENERAL APPEARANCE: cooperative NUTRITIONAL APPEARANCE: overweight ORIENTATION/CONSCIOUSNESS: Yes awake, Yes oriented to person, Yes oriented to place and Yes oriented to time HENMT: COMMON NORMALS: normocephalic and atraumatic HEAD & SCALP: normal to inspection, normocephalic and atraumatic Resp: COMMON NORMALS: normal respiratory effort and clear to auscultation bilaterally AUSCULTATION: clear to auscultation bilaterally Cardio: COMMON NORMALS: regular rate and regular rhythm RATE: regular rate RHYTHM: regular rhythm Extremity: NARRATIVE EXTREMITY EXAM: R UE PICC appears clean LEFT LOWER EXTREMITY: Yes foot & digits OTHER: pt with large 5x5 full thickness lateral plantar ulcer/wound to left foot; drainage and foul smell present; significant swelling/edema to lower leg and foot Neuro: SENSORIUM/ORIENTATION: Yes alert, Yes oriented to person, Yes oriented to place and Yes oriented to time Course Consultations: Consultation #1: Dr. Torres-recommends admit with plan for OR tomorrow Consultation #2: Dr. Johansen-accepts admission; recommends IV Clindamycin and consulting nephrology as patient will require dialysis tomorrow Consultation #3: Dr. Moreno-recommends consult with podiatry based on abnormal CT results Vital Signs: Vital signs: Vital Signs Temperature 99.2 F 09/20/22 04:15 Pulse Rate 94 09/20/22 04:15 Respiratory Rate 19 H 09/20/22 04:15 Blood Pressure 98/54 09/20/22 06:46 Pulse Oximetry 90 09/20/22 04:15 Oxygen Delivery Me thod 09/20/22 00:00 Oxygen Flow Rate 2 09/20/22 00:00 MDM - Extremity (Nontraumatic) Medical Decision Making Patient is a 52-year-old male with an extensive medical history including end-stage renal disease and known left foot osteomyelitis here with concerns of low-grade fevers, generally feeling ill, and worsening foot drainage and pain. He was sent by Dr. Moreno for CT imaging of the foot to look for drainable abscess. 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 I spoke to Dr. Moreno who recommended consulting with podiatry. I spoke to Dr. Torres who recommends surgical debridement. Will admit to hospitalist Dr. Johansen. I will speak to nephrology as patient will require dialysis tomorrow. Lab Data 09/18/22 14:03 09/18/22 14:[address] 09/18/22 14:10 IMPRESSION: 1. Evidence of osteomyelitis involving the base of the 4th and 5th metatarsals as well as the adjacent cuboid. 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 Ulceration involving the lateral aspect of the foot overlying the 4th and 5th metatarsals. No well-formed drainable fluid collection or drainable abscess. 3. Diffuse cellulitis. 4. Demineralization LEFT foot. Attempted notification VERO Toro at 09/18/2022 3:16 PM. Chest X-Ray 09/18/22 15:41 IMPRESSION: 1. No acute cardiopulmonary process. 2. Right upper extremity PICC is stable in position with the tip at the superior vena cava. 3. Incidental/nonacute findings are listed in the report. Foot X-Ray 09/18/22 16:08 IMPRESSION: 1. Extensive bony destruction/lysis involving the base and proximal metadiaphysis of the 4th and 5th metatarsals as well as the adjacent cuboid bone. A small area of lysis is also seen in the distal/medial metaphysis of the 5th metatarsal, findings are stable and suspicious for osteomyelitis. 2. Large ulcer in the lateral/volar left hindfoot with soft tissue emphysema extending to the areas of osteomyelitis at the proximal 4th and 5th metatarsals and the cuboid bone. Findings are stable. 3. Stable diffuse marked soft tissue swelling of the left foot suspicious for cellulitis/soft tissue infection. 4. Incidental/nonacute findings are listed in the report. Laboratory Results WBC 6.7 10^3/uL (4.0-10.0) 09/18/22 14:03 RBC 3.54 10^6/uL (4.1-5.3) L 09/18/22 14:03 Hgb 8.6 g/dL (11.7-16.6) L 09/18/22 14:03 Hct 29.8 % (42.0-52.0) L 09/18/22 14:03 MCV 84.2 fl (80-94) 09/18/22 14:03 MCH 24.3 pg (28.0-34.0) L 09/18/22 14:03 MCHC 28.9 g/dL (30.0-36.0) L 09/18/22 14:03 RDW 17.2 % (12.1-15.1) H 09/18/22 14:03 Plt Count 176 10^3/cmm (130-400) 09/18/22 14:03 MPV 11.0 fL (7.4-10.4) H 09/18/22 14:03 Neut % (Auto) 77.3 % 09/18/22 14:03 Lymph % (Auto) 10.3 % 09/18/22 14:03 Mcpherson % (Auto) 7.9 % 09/18/22 14:03 Eos % (Auto) 3.4 % 09/18/22 14:03 Baso % (Auto) 0.7 % 09/18/22 14:03 Neut # (Auto) 5.20 10^3/uL (1.8-7.7) 09/18/22 14:03 Lymph # (Auto) 0.7 10^3/uL (0.8-4.8) L 09/18/22 14:03 Mcpherson # (Auto) 0.5 10^3/uL (0.2-0.9) 09/18/22 14:03 Eos # (Auto) 0.2 10^3/uL (0.0-0.8) 09/18/22 14:03 Baso # (Auto) 0.1 10^3/uL (0.0-0.1) 09/18/22 14:03 Nucleated RBC % (auto) 0 % 09/18/22 14:03 Nucleated RBCs # 0.0 /100WBC 09/18/22 14:03 ESR 76 mm/hr (0-10) H 09/18/22 14:03 Sodium 133 mmol/L (136-145) L 09/18/22 14:03 Potassium 3.8 mmol/L (3.5-5.1) 09/18/22 14:03 Chloride 89 mmol/L (98-107) L 09/18/22 14:03 Carbon Dioxide 24 mmol/L (22-29) 09/18/22 14:03 Anion Gap 23.8 (5-19) H 09/18/22 14:03 BUN 32 mg/dL (6-20) H 09/18/22 14:03 Creatinine 4.4 mg/dL (0.7-1.2) H 09/18/22 14:03 GFR Calculation 14.2 mL/min (90-130) L 09/18/22 14:03 Glucose 228 mg/dL (65-115) H 09/18/22 14:03 POC Glucose 241 mg/dL (70-110) H 09/18/22 14:01 Calculated Osmolality 290 mOsm/kg (285-295) 09/18/22 14:03 Lactic Acid 2.4 mmol/L (0.5-2.2) H 09/18/22 14:03 Lactic Acid (Sepsis) 1.6 mmol/L (0.5-2.2) 09/18/22 16:53 Calcium 7.9 mg/dL (8.5-10.5) L 09/18/22 14:03 Total Bilirubin 0.9 mg/dL (0.15-1.2) 09/18/22 14:03 AST 16 U/L (0-40) 09/18/22 14:03 ALT 7 U/L (0-41) 09/18/22 14:03 Alkaline Phosphatase 192 U/L (40-130) H 09/18/22 14:03 C-Reactive Protein 114.8 mg/L (0.0-4.9) H 09/18/22 14:03 Total Protein 6.9 g/dL (6.6-8.7) 09/18/22 14:03 Albumin 2.6 g/dL (3.5-5.2) L 09/18/22 14:03 Globulin 4.3 g/dL (1.3-4.6) 09/18/22 14:03 Procalcitonin 40.77 ng/mL (0-0.5) H 09/18/22 17:09 Discharge Plan Discharge Patient Disposition: Admitted As Inpatient Admit Provider: Chris Johansen Clinical Impression: 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, ESRD (end stage renal disease) on dialysis, Type 2 diabetes mellitus with diabetic polyneuropathy, Acquired equinovarus deformity of left foot, Accelerated hypertension Condition: Stable Coding Level of Care Code ED Manager Photography for Chg Fwd Documented by User: Jerry Bradford DO 09/18/22 16:42 HPI - Extremity Problem General: Chief complaint: Extremity Problem,Nontraumatic Stated complaint: fever sent by wound care Time Seen by Provider: 09/18/22 13:39 PFSH ED PFSH: Medical History Anemia BMI 50.0-59.9, adult Cardiac arrest (~07/2020) when had covid Cellulitis CHF (congestive heart failure), NYHA class III Chronic respiratory failure with hypoxia and hypercapnia Chronic ulcer of left foot with fat layer exposed Chronic venous insufficiency COPD (chronic obstructive pulmonary disease) Diabetes Diabetic foot ulcers ESRD (end stage renal disease) on dialysis First degree heart block Fracture of fifth metatarsal bone of left foot Fracture of fourth metatarsal bone of left foot Fracture, thoracic vertebra T7-T8 History of renal cell carcinoma Hypertension Lung nodule Morbid obesity with BMI of 40.0-44.9, adult Neuropathy Non-healing ulcer of right foot with fat layer exposed Non-pressure chronic ulcer of other 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 No recurrence for long-term follow-up with some suspicion on CT scan April 2020. Restrictive lung disease Type 2 diabetes mellitus with diabetic polyneuropathy Urinary retention Surgical History H/O partial nephrectomy bilateral H/O wisdom tooth extraction History of cataract surgery Hx of lymph node excision Family History Father , at age 65 Diabetes Cancer Metastatic prostate cancer to liver Mother , at age 72 Diabetes Grandfather Diabetes Cancer Other Anemia Hyperlipidemia Social History Smoking and tobacco status: never smoked Second hand smoke exposure: Yes Smoking risk assessment/counseling performed?: Yes Alcohol intake: current Alcohol intake frequency: holidays/special occasions only Lives independently: Yes Household members: spouse Housing: House Marital status: service: No Current occupational status: retired Pets and animals: Yes Current gender identity: Male Course Vital Signs: Vital signs: Vital Signs Temperature 99.2 F 09/20/22 04:15 Pulse Rate 94 09/20/22 04:15 Respiratory Rate 19 H 09/20/22 04:15 Blood Pressure 98/54 09/20/22 06:46 Pulse Oximetry 90 09/20/22 04:15 Oxygen Delivery Me thod 09/20/22 00:00 Oxygen Flow Rate 2 09/20/22 00:00 MDM - Extremity (Nontraumatic) Medical Decision Making Patient is a 52-year-old male with an extensive medical history including end-stage renal disease and known left foot osteomyelitis here with concerns of low-grade fevers, generally feeling ill, and worsening foot drainage and pain. He was sent by Dr. Moreno for CT imaging of the foot to look for drainable abscess. 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 I spoke to Dr. Moreno who recommended consulting with podiatry. I spoke to Dr. Torres who recommends surgical debridement. Will admit to hospitalist Dr. Johansen. I will speak to nephrology as patient will require dialysis tomorrow. Patient care handoff received from Judy Suarez continuation of ED evaluation. I personally saw and evaluated patient and reperformed diane portions of E/M. Patient will be admitted for osteomyelitis end-stage renal disease peripheral artery disease. He has a PICC line in place he will continue to need IV antibiotics. For now decided to continue the current daptomycin. Dr. Torres will be consulted for incision and drainage and debridement. Medical Records I reviewed the patient's medical records. Lab Data I reviewed the patient's lab results. 09/18/22 14:03 09/18/22 14:[address] 09/18/22 14:10 IMPRESSION: 1. Evidence of osteomyelitis involving the base of the 4th and 5th metatarsals as well as the adjacent cuboid. 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 Ulceration involving the lateral aspect of the foot overlying the 4th and 5th metatarsals. No well-formed drainable fluid collection or drainable abscess. 3. Diffuse cellulitis. 4. Demineralization LEFT foot. Attempted notification VERO Toro at 09/18/2022 3:16 PM. Chest X-Ray 09/18/22 15:41 IMPRESSION: 1. No acute cardiopulmonary process. 2. Right upper extremity PICC is stable in position with the tip at the superior vena cava. 3. Incidental/nonacute findings are listed in the report. Foot X-Ray 09/18/22 16:08 IMPRESSION: 1. Extensive bony destruction/lysis involving the base and proximal metadiaphysis of the 4th and 5th metatarsals as well as the adjacent cuboid bone. A small area of lysis is also seen in the distal/medial metaphysis of the 5th metatarsal, findings are stable and suspicious for osteomyelitis. 2. Large ulcer in the lateral/volar left hindfoot with soft tissue emphysema extending to the areas of osteomyelitis at the proximal 4th and 5th metatarsals and the cuboid bone. Findings are stable. 3. Stable diffuse marked soft tissue swelling of the left foot suspicious for cellulitis/soft tissue infection. 4. Incidental/nonacute findings are listed in the report. Laboratory Results WBC 6.7 10^3/uL (4.0-10.0) 09/18/22 14:03 RBC 3.54 10^6/uL (4.1-5.3) L 09/18/22 14:03 Hgb 8.6 g/dL (11.7-16.6) L 09/18/22 14:03 Hct 29.8 % (42.0-52.0) L 09/18/22 14:03 MCV 84.2 fl (80-94) 09/18/22 14:03 MCH 24.3 pg (28.0-34.0) L 09/18/22 14:03 MCHC 28.9 g/dL (30.0-36.0) L 09/18/22 14:03 RDW 17.2 % (12.1-15.1) H 09/18/22 14:03 Plt Count 176 10^3/cmm (130-400) 09/18/22 14:03 MPV 11.0 fL (7.4-10.4) H 09/18/22 14:03 Neut % (Auto) 77.3 % 09/18/22 14:03 Lymph % (Auto) 10.3 % 09/18/22 14:03 Mcpherson % (Auto) 7.9 % 09/18/22 14:03 Eos % (Auto) 3.4 % 09/18/22 14:03 Baso % (Auto) 0.7 % 09/18/22 14:03 Neut # (Auto) 5.20 10^3/uL (1.8-7.7) 09/18/22 14:03 Lymph # (Auto) 0.7 10^3/uL (0.8-4.8) L 09/18/22 14:03 Mcpherson # (Auto) 0.5 10^3/uL (0.2-0.9) 09/18/22 14:03 Eos # (Auto) 0.2 10^3/uL (0.0-0.8) 09/18/22 14:03 Baso # (Auto) 0.1 10^3/uL (0.0-0.1) 09/18/22 14:03 Nucleated RBC % (auto) 0 % 09/18/22 14:03 Nucleated RBCs # 0.0 /100WBC 09/18/22 14:03 ESR 76 mm/hr (0-10) H 09/18/22 14:03 Sodium 133 mmol/L (136-145) L 09/18/22 14:03 Potassium 3.8 mmol/L (3.5-5.1) 09/18/22 14:03 Chloride 89 mmol/L (98-107) L 09/18/22 14:03 Carbon Dioxide 24 mmol/L (22-29) 09/18/22 14:03 Anion Gap 23.8 (5-19) H 09/18/22 14:03 BUN 32 mg/dL (6-20) H 09/18/22 14:03 Creatinine 4.4 mg/dL (0.7-1.2) H 09/18/22 14:03 GFR Calculation 14.2 mL/min (90-130) L 09/18/22 14:03 Glucose 228 mg/dL (65-115) H 09/18/22 14:03 POC Glucose 241 mg/dL (70-110) H 09/18/22 14:01 Calculated Osmolality 290 mOsm/kg (285-295) 09/18/22 14:03 Lactic Acid 2.4 mmol/L (0.5-2.2) H 09/18/22 14:03 Lactic Acid (Sepsis) 1.6 mmol/L (0.5-2.2) 09/18/22 16:53 Calcium 7.9 mg/dL (8.5-10.5) L 09/18/22 14:03 Total Bilirubin 0.9 mg/dL (0.15-1.2) 09/18/22 14:03 AST 16 U/L (0-40) 09/18/22 14:03 ALT 7 U/L (0-41) 09/18/22 14:03 Alkaline Phosphatase 192 U/L (40-130) H 09/18/22 14:03 C-Reactive Protein 114.8 mg/L (0.0-4.9) H 09/18/22 14:03 Total Protein 6.9 g/dL (6.6-8.7) 09/18/22 14:03 Albumin 2.6 g/dL (3.5-5.2) L 09/18/22 14:03 Globulin 4.3 g/dL (1.3-4.6) 09/18/22 14:03 Procalcitonin 40.77 ng/mL (0-0.5) H 09/18/22 17:09 Discharge Plan Discharge Patient Disposition: Admitted As Inpatient Admit Provider: Chris Johansen Clinical Impression: 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, ESRD (end stage renal disease) on dialysis, Type 2 diabetes mellitus with diabetic polyneuropathy, Acquired equinovarus deformity of left foot, Accelerated hypertension Condition: Stable Coding Level of Care Code ED Manager Photography for Patricia Reid
[2022-09-18 14:23] LABS: Basophils # 0.1 10^3/uL (0.0-0.1); Basophils % 0.7 %; Eosinophils # 0.2 10^3/uL (0.0-0.8); Eosinophils % 3.4 %; Hematocrit 29.8 % (42.0-52.0); Hemoglobin 8.6 g/dL (11.7-16.6); Lymphocytes # 0.7 10^3/uL (0.8-4.8); Lymphocytes % 10.3 %; Mean Corpuscular HGB Conc 28.9 g/dL (30.0-36.0); Mean Corpuscular Hemoglobin 24.3 pg (28.0-34.0); Mean Corpuscular Volume 84.2 fl (80-94); Monocytes # 0.5 10^3/uL (0.2-0.9); Monocytes % 7.9 %; Neutrophils % 77.3 %; Nucleated Red Blood Cells % 0 %; Platelet Count 176 10^3/cmm (130-400); Red Blood Count 3.54 10^6/uL (4.1-5.3); Red Cell Distribution Width 17.2 % (12.1-15.1); White Blood Count 6.7 10^3/uL (4.0-10.0)
[2022-09-18 14:28] LABS: Alanine Aminotransferase 7 U/L (0-41); Albumin Level 2.6 g/dL (3.5-5.2); Alkaline Phosphatase 192 U/L (40-130); Anion Gap 23.8 (5-19); Aspartate Amino Transferase 16 U/L (0-40); Blood Urea Nitrogen 32 mg/dL (6-20); C Reactive Protein 114.8 mg/L (0.0-4.9); Calcium 7.9 mg/dL (8.5-10.5); Carbon Dioxide 24 mmol/L (22-29); Chloride 89 mmol/L (98-107); Globulin 4.3 g/dL (1.3-4.6); Glomerular Filtration Rate 14.2 mL/min (90-130); Glucose 228 mg/dL (65-115); Osmolality Calculated 290 mOsm/kg (285-295); Potassium 3.8 mmol/L (3.5-5.1); Sodium 133 mmol/L (136-145); Total Bilirubin 0.9 mg/dL (0.15-1.2); Total Protein 6.9 g/dL (6.6-8.7)
[2022-09-18 14:29] LABS: Lactic Sepsis W/Reflex 2.4 mmol/L (0.5-2.2)
[2022-09-18 14:30] LABS: Erythrocyte Sedimentation Rate 76 mm/hr (0-10)
[2022-09-18] MEDS: iohexol 350 mg/mL 500 mL Btl (per mL) IV (15:03)
--- NOTE | 2022-09-18 15:10 | PC.PHAR ---
pt states he takes care of his own medications-pt states the pcp dced his coreg 25mg bid filled 06/28/22 90d/s and lexpro 10mg daily filled on 08/21/22 30d/s-pt states the dr increased the renvela to 5 tabs po tid with meals and 4 tabs po bid with snacks-ext med history shows last filled 08/29/22 30d/s for 4 tabs tid with meals and 3 tabs bid with snacks-pt states the dr dced the rifampin 300mg take 2 caps daily for 14 days filled 09/08/22 14d/s-pt states only on the daptomycin-notes are made in the pharmacy comments
[2022-09-18] MEDS: morphine 4 mg/mL SDV 1 mL IVP (15:31)
--- NOTE | 2022-09-18 15:41 | XRR_ITS ---
PROCEDURE INFORMATION: Exam: XR Chest Exam date and time: 09/18/2022 4:07 PM Age: 52 years old Clinical indication: Fever; Additional info: Fevers, ill TECHNIQUE: Imaging protocol: Radiologic exam of the chest. Views: 1 view. COMPARISON: CR XR chest 1V portable [id number] 09/12/2022 2:21 PM FINDINGS: Tubes, catheters and devices: Right upper extremity PICC is stable in position with the tip at the superior vena cava. Lungs: Lungs are clear bilaterally. Pleural spaces: No pleural effusion. No pneumothorax. Heart/Mediastinum: Stable moderate enlargement of the cardiac silhouette. Mediastinal contours are unremarkable. Bones/joints: Soft tissue calcification medial to the right humerus. XR/XR chest 1V portable [id number] IMPRESSION: 1. No acute cardiopulmonary process. 2. Right upper extremity PICC is stable in position with the tip at the superior vena cava. 3. Incidental/nonacute findings are listed in the report.
[2022-09-18 16:02] LABS: Reflex Lactate Order REFLEX LACTIC ORDERD
--- NOTE | 2022-09-18 16:07 | P.CONIM_ITS ---
Providers/Reason For Consult Consulting Physician/Specialty*: Godwin Torres D.P.M. podiatry Reason for Consult*: Left diabetic foot infection, osteomyelitis and soft tis dee gas Primary Care Provider: Sulma Wetzel MD History of Present Illness History of Present Illness Akil Velasco is a 52 year old male presenting to the emergency department for evaluation of worsening wound to the left foot and acute onset of subjective fever, malaise, nausea and chills. He has had a wound greater than 1 year with osteomyelitis left foot involving the fifth metatarsal. Patient has extensive comorbidities, he has diabetes with peripheral neuropathy, peripheral vascular disease, congestive heart failure, history of renal cell carcinoma, end-stage renal disease with dialysis 3 times weekly. Wound care efforts have been challenging with patient's poor insight on his condition and failure to adhere to offloading recommendations. Currently has a PICC line and has been receiving daptomycin. Several cultures on file demonstrate MRSA, history of Corynebacterium, E. coli and Pseudomonas all having grown on cultures over the past 2 years of his left foot wound. Review of Systems 2 General: Reports: 10 or more systems reviewed and unremarkable except in HPI and below Const: Denies: fever(s) or chills Eyes: Denies: change in vision Card: Denies: chest pain or palpitations Resp: Denies: dyspnea or productive cough GI: Denies: abdominal pain, nausea or vomiting : Denies: flank pain Musc: Reports: extremity swelling, joint stiffness and deformity Skin/Breast: Reports: erythema, sores, changes in skin color, dry skin, nail changes and change in hair Neuro: Reports: numbness in extremities, sensory changes and difficulty walking Psych: Denies: suicidal ideation Endo: Denies: change in body appearance Ramy/Lymph: Denies: tender lymph nodes Medications/Allergies Home Medications Medication Instructions Recorded Confirmed Last Taken Type vit B,C-folic ac 800 mcg-zinc 12.5 1 tab PO QAM 04/25/21 09/18/22 09/18/22 Hist ory mg-selen-D3 2,000 unit-vit E tablet (RenaPlex-D) Wheel Chair #1 ea 08/18/21 09/18/22 09/12/22 Rx gabapentin 300 mg capsule 300 mg PO TID 08/22/21 09/18/22 09/18/22 08:00 History ropinirole 0.25 mg tablet 0.25 mg PO BEDTIME PRN Restless 08/22/21 09/18/22 09/12/22 History Leg(S) sodium zirconium cyclosilicate 5 See Rx Instructions .Route .COMPLEX 08/22/21 09/18/22 09/13/22 History gram oral powder packet (Lokelma) trazodone 50 mg tablet 50 mg PO BEDTIME PRN Sleep 08/22/21 09/18/22 09/12/22 History torsemide 100 mg tablet 100 mg PO BID 01/31/22 09/18/22 09/18/22 08:00 History cholecalciferol (vitamin D3) 25 25 mcg PO QAM 04/11/22 09/18/22 09/18/22 History mcg (1,000 unit) tablet (Vitamin D3) ondansetron HCl 4 mg tablet 4 mg PO Q8H PRN Nausea 04/11/22 09/18/22 09/12/22 History Compression Stockings #1 ea 04/12/22 09/18/22 09/12/22 Rx sodium thiosulfate 1 gram/10 mL 1 g IV .3X WEEK 06/06/22 09/18/22 09/12/22 History (100 mg/mL) intravenous solution [place] boot modification #1 ea 07/17/22 09/18/22 09/12/22 Rx cilostazol 50 mg tablet 50 mg PO BID 08/16/22 09/18/22 09/18/22 08:00 History oxycodone 5 mg tablet 5 mg PO Q6H PRN Pain 08/16/22 09/18/22 09/18/22 08:00 History daptomycin 500 mg intravenous 650 mg IV Q48H 09/18/22 09/18/22 09/17/22 History solution lidocaine-prilocaine 2.5 %-2.5 % See Rx Instructions .Route .COMPLEX 09/18/22 09/18/22 Unknown History topical cream multivitamin 1 tab PO QAM 09/18/22 09/18/22 09/18/22 History sevelamer carbonate 800 mg tablet See Rx Instructions .Route .COMPLEX 09/18/22 09/18/22 Unknown History Allergies Allergy/AdvReac Type Severity Reaction Status Date / Time linezolid [From Zyvox] Allergy tendonitis Verified 09/18/22 15:03 vancomycin Allergy Unknown Verified 09/18/22 15:03 ciprofloxacin [From Cipro] AdvReac Severe Tendonitis Verified 09/18/22 15:03 PFSH Acute PFSH: Medical History Anemia BMI 50.0-59.9, adult Cardiac arrest (~07/2020) when had covid Cellulitis CHF (congestive heart failure), NYHA class III Chronic respiratory failure with hypoxia and hypercapnia Chronic ulcer of left foot with fat layer exposed Chronic venous insufficiency COPD (chronic obstructive pulmonary disease) Diabetes Diabetic foot ulcers ESRD (end stage renal disease) on dialysis First degree heart block Fracture of fifth metatarsal bone of left foot Fracture of fourth metatarsal bone of left foot Fracture, thoracic vertebra T7-T8 History of renal cell carcinoma Hypertension Lung nodule Morbid obesity with BMI of 40.0-44.9, adult Neuropathy Non-healing ulcer of right foot with fat layer exposed Non-pressure chronic ulcer of other 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 No recurrence for long-term follow-up with some suspicion on CT scan April 2020. Restrictive lung disease Type 2 diabetes mellitus with diabetic polyneuropathy Urinary retention Surgical History H/O partial nephrectomy bilateral H/O wisdom tooth extraction History of cataract surgery Hx of lymph node excision Family History Father , at age 65 Diabetes Cancer Metastatic prostate cancer to liver Mother , at age 72 Diabetes Grandfather Diabetes Cancer Other Anemia Hyperlipidemia Social History Smoking and tobacco status: never smoked Second hand smoke exposure: Yes Smoking risk assessment/counseling performed?: Yes Alcohol intake: current Alcohol intake frequency: holidays/special occasions only Lives independently: Yes Household members: spouse Housing: House Marital status: service: No Current occupational status: retired Pets and animals: Yes Current gender identity: Male Vitals/I&O/Wt Last Vital Signs Temp 99.0 F 09/18/22 13:22 Pulse 99 09/18/22 13:22 Resp 16 09/18/22 13:22 BP 157/82 09/18/22 15:25 Pulse Ox 99 09/18/22 15:25 O2 Del Method 09/18/22 13:22 Weight last 48 hrs Weight 220 lb Physical Exam Narrative: GENERAL: Patient is alert and oriented ?3 and in no acute distress. The following is a focused bilateral lower extremity exam. VASCULAR: Dorsalis pedis palpable bilaterally posterior tibial arteries palpable. Capillary refill time less than 3 seconds to the distal hallux bilaterally. Calf is supple and nontender proximally and distally. Decreased pedal hair growth bilaterally. +2 pitting edema to the left lower extremity. +2 pitting edema to the right lower extremity. NEUROLOGICAL: Protective sensation intact 0/10 sites, tested with [place] monofilament to bilateral feet. DERMATOLOGICAL: Full-thickness wound left lateral foot with exposed fifth metatarsal base and cuboid measures 5.2 cm x 5.5 cm x 1 cm with devitalized bone. Purulent drainage and malodor from the left lateral foot wound. MUSCULOSKELETAL: No pain to palpation secondary to neuropathy bilateral lower extremity. No pain with posterior calf squeeze. Data 09/18/22 14:03 09/18/22 14:03 Micro: Microbiology 09/18/22 15:47 Blood Culture - Preliminary Blood SPECIMEN COLLECTED 09/18/22 15:45 Blood Culture - Preliminary Blood SPECIMEN COLLECTED A&P Assessment and plan (1) Type 2 diabetes mellitus with diabetic polyneuropathy: Qualifiers: Diabetes mellitus intermediate card tender insulin use: unspecified correction insulin use status Qualified Code(s): E11.42 - Type 2 diabetes mellitus with diabetic polyneuropathy (2) 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: Plan Akil Velasco is a 52 year old male presenting to the emergency department for evaluation of worsening wound to the left foot and acute onset of subjective fever, malaise, nausea and chills. He has had a wound greater than 1 year with osteomyelitis left foot involving the fifth metatarsal. Patient has extensive comorbidities, he has diabetes with peripheral neuropathy, peripheral vascular disease, congestive heart failure, history of renal cell carcinoma, end-stage renal disease with dialysis 3 times weekly. Wound care efforts have been challenging with patient's poor insight on his condition and failure to adhere to offloading recommendations. Currently has a PICC line and has been receiving daptomycin. Several cultures on file demonstrate MRSA, history of Corynebacterium, E. coli and Pseudomonas all having grown on cultures over the past 2 years of his left foot wound. Reviewed x-ray findings as well as CT skin findings has intraosseous soft tissue emphysema as well as soft tissue emphysema within the soft tissues adjacent to the wound, osteomyelitis involving the fifth metatarsal, fourth metatarsal and cuboid. Recommendations: Admission to hospital service on empiric IV antibiotics N.p.o. at midnight for incision and debridement down to bone left foot planning at noon tomorrow 09/19/2022 Ultimately I recommended a below-knee amputation to the left lower extremity, patient is thinking about this, will revisit this in the morning. Nonweightbearing to the left lower extremity, heel touch for transfers only Elevate left lower extremity while resting Betadine wet-to-dry dressing applied Will round in the a.m. 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
--- NOTE | 2022-09-18 16:08 | XRR_ITS ---
PROCEDURE INFORMATION: Exam: XR Left Foot Exam date and time: 09/18/2022 4:30 PM Age: 52 years old Clinical indication: Screening exam; Pre op planning TECHNIQUE: Imaging protocol: Radiologic exam of the Left foot. Views: 3 or more views. COMPARISON: CT foot LT w con [id number] 09/18/2022 2:42 PM FINDINGS: Bones/joints: No acute fracture. No dislocation. Stable diffuse osteopenia of the visualized bones. Extensive bony destruction/lysis involving the base and proximal metadiaphysis of the 4th and 5th metatarsals as well as the adjacent cuboid bone. A small area of lysis is also seen in the distal/medial metaphysis of the 5th metatarsal, findings are stable and suspicious for osteomyelitis. Small calcified enthesophyte at the Achilles tendon insertion. Soft tissues: Large ulcer in the lateral/volar left hindfoot with soft tissue emphysema extending to the areas of osteomyelitis at the proximal 4th and 5th metatarsals and the cuboid bone. Findings are stable. Stable diffuse marked soft tissue swelling of the left foot suspicious for cellulitis/soft tissue infection. No radiopaque foreign body. XR/XR foot LT min 3V* [id number] IMPRESSION: 1. Extensive bony destruction/lysis involving the base and proximal metadiaphysis of the 4th and 5th metatarsals as well as the adjacent cuboid bone. A small area of lysis is also seen in the distal/medial metaphysis of the 5th metatarsal, findings are stable and suspicious for osteomyelitis. 2. Large ulcer in the lateral/volar left hindfoot with soft tissue emphysema extending to the areas of osteomyelitis at the proximal 4th and 5th metatarsals and the cuboid bone. Findings are stable. 3. Stable diffuse marked soft tissue swelling of the left foot suspicious for cellulitis/soft tissue infection. 4. Incidental/nonacute findings are listed in the report.
--- NOTE | 2022-09-18 16:10 | PM.HP ---
Providers/Chief Complaint Primary Care Provider: Sulma Wetzel MD Chief Complaint: fever sent by wound care History of Present Illness Akil Velasco is a 52 year old male with history of oxygen dependent COPD uses 2 to 2.5 L at home, end-stage on disease Sunday, diabetes with nephropathy and neuropathy, hypertension, presented to the hospital for worsening of left foot diabetic foot ulcer. This wound is 1-year-old he has had extensive debridement and wound care at the local wound care center Dr. Moreno referred him to the hospital for worsening of his wound. Patient has failed to adhere to offloading recommendations. He has received daptomycin in the past previous cultures demonstrated MRSA, E. coli, Pseudomonas, In the ER he was diagnosed with gas-forming bacteria, Dr. Torres was consulted for intervention, I asked ER to administer toxin suppression dose of clindamycin and get nephro on board to start dialysis from tomorrow Review of Systems Const: Reports: chills Eyes: Denies: change in vision ENMT: Denies: throat pain Card: Denies: chest pain Resp: Denies: dyspnea GI: Denies: abdominal pain : Denies: urinary dribbling Musc: Reports: extremity pain Skin/Breast: Reports: rash and new lesions Neuro: Reports: numbness in extremities; Denies: headache(s) Psych: Reports: anxiety Endo: Denies: polyuria Ramy/Lymph: Denies: easy bruising All/Imm: Denies: urticaria Medications/Allergies Home Medications Medication Instructions Recorded Confirmed Last Taken Type vit B,C-folic ac 800 mcg-zinc 12.5 1 tab PO QAM 04/25/21 09/18/22 09/18/22 History mg-selen-D3 2,000 unit-vit E tablet (RenaPlex-D) Wheel Chair #1 ea 08/18/21 09/18/22 09/12/22 Rx gabapentin 300 mg capsule 300 mg PO TID 08/22/21 09/18/22 09/18/22 08:00 History ropinirole 0.25 mg tablet 0.25 mg PO BEDTIME PRN Restless 08/22/21 09/18/22 09/12/22 History Leg(S) sodium zirconium cyclosilicate 5 See Rx Instructions .Route .COMPLEX 08/22/21 09/18/22 09/13/22 History gram oral powder packet (Lokelma) trazodone 50 mg tablet 50 mg PO BEDTIME PRN Sleep 08/22/21 09/18/22 09/12/22 History torsemide 100 mg tablet 100 mg PO BID 01/31/22 09/18/22 09/18/22 08:00 History cholecalciferol (vitamin D3) 25 25 mcg PO QAM 04/11/22 09/18/22 09/18/22 History mcg (1,000 unit) tablet (Vitamin D3) ondansetron HCl 4 mg tablet 4 mg PO Q8H PRN Nausea 04/11/22 09/18/22 09/12/22 History Compression Stockings #1 ea 04/12/22 09/18/22 09/12/22 Rx sodium thiosulfate 1 gram/10 mL 1 g IV .3X WEEK 06/06/22 09/18/22 09/12/22 History (100 mg/mL) intravenous solution [place] boot modification #1 ea 07/17/22 09/18/22 09/12/22 Rx cilostazol 50 mg tablet 50 mg PO BID 08/16/22 09/18/22 09/18/22 08:00 History oxycodone 5 mg tablet 5 mg PO Q6H PRN Pain 08/16/22 09/18/22 09/18/22 08:00 History daptomycin 500 mg intravenous 650 mg IV Q48H 09/18/22 09/18/22 09/17/22 History solution lidocaine-prilocaine 2.5 %-2.5 % See Rx Instructions .Route .COMPLEX 09/18/22 09/18/22 Unknown History topical cream multivitamin 1 tab PO QAM 09/18/22 09/18/22 09/18/22 History sevelamer carbonate 800 mg tablet See Rx Instructions .Route .COMPLEX 09/18/22 09/18/22 Unknown History Allergies Allergy/AdvReac Type Severity Reaction Status Date / Time linezolid [From Zyvox] Allergy tendonitis Verified 09/18/22 15:03 vancomycin Allergy Unknown Verified 09/18/22 15:03 ciprofloxacin [From Cipro] AdvReac Severe Tendonitis Verified 09/18/22 15:03 PFSH Acute PFSH: Medical History Anemia BMI 50.0-59.9, adult Cardiac arrest (~07/2020) when had covid Cellulitis CHF (congestive heart failure), NYHA class III Chronic respiratory failure with hypoxia and hypercapnia Chronic ulcer of left foot with fat layer exposed Chronic venous insufficiency COPD (chronic obstructive pulmonary disease) Diabetes Diabetic foot ulcers ESRD (end stage renal disease) on dialysis First degree heart block Fracture of fifth metatarsal bone of left foot Fracture of fourth metatarsal bone of left foot Fracture, thoracic vertebra T7-T8 History of renal cell carcinoma Hypertension Lung nodule Morbid obesity with BMI of 40.0-44.9, adult Neuropathy Non-healing ulcer of right foot with fat layer exposed Non-pressure chronic ulcer of other 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 No recurrence for long-term follow-up with some suspicion on CT scan April 2020. Restrictive lung disease Type 2 diabetes mellitus with diabetic polyneuropathy Urinary retention Surgical History H/O partial nephrectomy bilateral H/O wisdom tooth extraction History of cataract surgery Hx of lymph node excision Family History Father , at age 65 Diabetes Cancer Metastatic prostate cancer to liver Mother , at age 72 Diabetes Grandfather Diabetes Cancer Other Anemia Hyperlipidemia Social History Smoking and tobacco status: never smoked Second hand smoke exposure: Yes Smoking risk assessment/counseling performed?: Yes Alcohol intake: current Alcohol intake frequency: holidays/special occasions only Lives independently: Yes Household members: spouse Housing: House Marital status: service: No Current occupational status: retired Pets and animals: Yes Current gender identity: Male Vitals/I&O/Wt Last Vital Signs Temp 99.0 F 09/18/22 13:22 Pulse 99 09/18/22 13:22 Resp 16 09/18/22 13:22 BP 157/82 09/18/22 15:25 Pulse Ox 99 09/18/22 15:25 O2 Del Method 09/18/22 13:22 Weight last 48 hrs Weight 99.79 kg Physical Exam Narrative: Signs of fluid overload AV fistula in place Umbilical hernia Abdomen soft Awake and alert Nonfocal neuro exam Left foot ulcer Edema of legs 5 x 5 x 1 lateral foot ulcer with exposed bone Anasarca with 2+ edema left lower extremity S1, S2 Currently on 3 to 4 L Significant muscle mass Stage I sacral ulcer Right foot callus formation Data 09/18/22 14:03 09/18/22 14:03 Micro: Microbiology 09/18/22 15:47 Blood Culture - Preliminary Blood SPECIMEN COLLECTED 09/18/22 15:45 Blood Culture - Preliminary Blood SPECIMEN COLLECTED A&P Assessment and plan (1) Gas gangrene: (2) Acquired equinovarus deformity of left foot: (3) Pre-ulcerative calluses: (4) Xerosis of skin: (5) Type 2 diabetes mellitus with diabetic polyneuropathy: Qualifiers: Diabetes mellitus shelter insulin use: unspecified emt intermediate insulin use status Qualified Code(s): E11.42 - Type 2 diabetes mellitus with diabetic polyneuropathy (6) Accelerated hypertension: (7) Vitamin D deficiency: (8) ESRD (end stage renal disease) on dialysis: (9) Ulcer of sacral region, stage 1: Plan Left foot gas gangrene Patient might need amputation We will follow-up with Dr. Torres's recommendation Patient will be n.p.o. after midnight Start clindamycin for toxin suppression along with broad-spectrum antibiotics End-stage renal disease Sunday, nephro consulted AV fistula in place Type 2 diabetes: Continue sliding scale of insulin Chronic hypoxia without acute worsening, at home uses 2.5 to 3 L Sacral ulcer offloading dressing, stage I present on admission Full code Consistent carb diet N.p.o. after midnight Hold DVT prophylaxis for now DPOA and daughter Attestations Medical Necessity Statement*: Anticipating more than 2 midnight Coding Level of Care Code 27453 Diagnoses Gas gangrene A48.0 Acquired equinovarus deformity of left foot M21.542 Pre-ulcerative calluses L84 Xerosis of skin L85.3 Type 2 diabetes mellitus with diabetic polyneuropathy E11.42 Diabetes mellitus shelter insulin use: unspecified emt intermediate insulin use status Accelerated hypertension I10 Vitamin D deficiency E55.9 ESRD (end stage renal disease) on dialysis N18.6; Z99.2 Ulcer of sacral region, stage 1 L98.429
[2022-09-18] MEDS: clindamycin 900 MG/50 ML PREMIX 100 MG IV (16:51)
[2022-09-18 17:22] LABS: Lactic Acid level (Lactate) 1.6 mmol/L (0.5-2.2)
--- NOTE | 2022-09-18 17:49 | PM.CONSULT ---
Providers/Reason For Consult Consulting Physician/Specialty*: domonique patel md/ telenephrology Reason for Consult*: ESRD care Requesting Physician: DR Chris Johansen Attending Physician: Dr Quincy Johansen Primary Care Provider: Sulma Wetzel MD History of Present Illness History of Present Illness Akil Velasco is a 52 year old male ESRD, DM, HTN, COPD, and renal cell ca. pt admitted for DM foot ulcer/ Q of OM. Renal called for ESRD care. Review of Systems Narrative: pt followed by wound care. has foot pain. no n/v/sob,acosta. + subjective fevers Medications/Allergies Home Medications Medication Instructions Recorded Confirmed Last Taken Type vit B,C-folic ac 800 mcg-zinc 12.5 1 tab PO QAM 04/25/21 09/18/22 09/18/22 History mg-selen-D3 2,000 unit-vit E tablet ([facility]-D) Wheel Chair #1 ea 08/18/21 09/18/22 09/12/22 Rx gabapentin 300 mg capsule 300 mg PO TID 08/22/21 09/18/22 09/18/22 08:00 History ropinirole 0.25 mg tablet 0.25 mg PO BEDTIME PRN Restless 08/22/21 09/18/22 09/12/22 History Leg(S) sodium zirconium cyclosilicate 5 See Rx Instructions .Route .COMPLEX 08/22/21 09/18/22 09/13/22 History gram oral powder packet (Lokelma) trazodone 50 mg tablet 50 mg PO BEDTIME PRN Sleep 08/22/21 09/18/22 09/12/22 History torsemide 100 mg tablet 100 mg PO BID 01/31/22 09/18/22 09/18/22 08:00 History cholecalciferol (vitamin D3) 25 25 mcg PO QAM 04/11/22 09/18/22 09/18/22 History mcg (1,000 unit) tablet (Vitamin D3) ondansetron HCl 4 mg tablet 4 mg PO Q8H PRN Nausea 04/11/22 09/18/22 09/12/22 History Compression Stockings #1 ea 04/12/22 09/18/22 09/12/22 Rx sodium thiosulfate 1 gram/10 mL 1 g IV .3X WEEK 06/06/22 09/18/22 09/12/22 History (100 mg/mL) intravenous solution [place] boot modification #1 ea 07/17/22 09/18/22 09/12/22 Rx cilostazol 50 mg tablet 50 mg PO BID 08/16/22 09/18/22 09/18/22 08:00 History oxycodone 5 mg tablet 5 mg PO Q6H PRN Pain 08/16/22 09/18/22 09/18/22 08:00 History daptomycin 500 mg intravenous 650 mg IV Q48H 09/18/22 09/18/22 09/17/22 History solution lidocaine-prilocaine 2.5 %-2.5 % See Rx Instructions .Route .COMPLEX 09/18/22 09/18/22 Unknown History topical cream multivitamin 1 tab PO QAM 09/18/22 09/18/22 09/18/22 History sevelamer carbonate 800 mg tablet See Rx Instructions .Route .COMPLEX 09/18/22 09/18/22 Unknown History Allergies Allergy/AdvReac Type Severity Reaction Status Date / Time linezolid [From Zyvox] Allergy tendonitis Verified 09/18/22 15:03 vancomycin Allergy Unknown Verified 09/18/22 15:03 ciprofloxacin [From Cipro] AdvReac Severe Tendonitis Verified 09/18/22 15:03 PFSH Acute PFSH: Medical History Anemia BMI 50.0-59.9, adult Cardiac arrest (~07/2020) when had covid Cellulitis CHF (congestive heart failure), NYHA class III Chronic respiratory failure with hypoxia and hypercapnia Chronic ulcer of left foot with fat layer exposed Chronic venous insufficiency COPD (chronic obstructive pulmonary disease) Diabetes Diabetic foot ulcers ESRD (end stage renal disease) on dialysis First degree heart block Fracture of fifth metatarsal bone of left foot Fracture of fourth metatarsal bone of left foot Fracture, thoracic vertebra T7-T8 History of renal cell carcinoma Hypertension Lung nodule Morbid obesity with BMI of 40.0-44.9, adult Neuropathy Non-healing ulcer of right foot with fat layer exposed Non-pressure chronic ulcer of other 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 No recurrence for long-term follow-up with some suspicion on CT scan April 2020. Restrictive lung disease Type 2 diabetes mellitus with diabetic polyneuropathy Urinary retention Surgical History H/O partial nephrectomy bilateral H/O wisdom tooth extraction History of cataract surgery Hx of lymph node excision Family History Father , at age 65 Diabetes Cancer Metastatic prostate cancer to liver Mother , at age 72 Diabetes Grandfather Diabetes Cancer Other Anemia Hyperlipidemia Social History Smoking and tobacco status: never smoked Second hand smoke exposure: Yes Smoking risk assessment/counseling performed?: Yes Alcohol intake: current Alcohol intake frequency: holidays/special occasions only Lives independently: Yes Household members: spouse Housing: House Marital status: service: No Current occupational status: retired Pets and animals: Yes Current gender identity: Male Vitals/I&O/Wt Last Vital Signs Temp 99.0 F 09/18/22 13:22 Pulse 99 09/18/22 13:22 Resp 16 09/18/22 13:22 BP 144/76 09/18/22 16:45 Pulse Ox 98 09/18/22 16:45 O2 Del Method 09/18/22 13:22 09/18/22 09/18/22 09/18/22 06:59 14:59 22:59 Intake Total 50 / 50 Balance 50 / 50 Weight last 48 hrs Weight 99.79 kg Physical Exam Narrative: comfortable in bed, NARD HEENT - nc/at, eomi, anicteric neck supple lungs crackles b/l heart reg abd soft, nt, nd, + bs ext LUE AVF, pr ER physician pt with large 5x5 full thickness lateral plantar ulcer/wound to left foot; drainage and foul smell present; significant swelling/edema to lower leg and foot neuro- a,a, o x 3 Data 09/18/22 14:03 09/18/22 14:03 Micro: Microbiology 09/18/22 15:47 Blood Culture - Preliminary Blood SPECIMEN COLLECTED 09/18/22 15:45 Blood Culture - Preliminary Blood SPECIMEN COLLECTED A&P Assessment and plan (1) ESRD (end stage renal disease) on dialysis: 52 yr old man ESRD, cellulitis/ Q OM 1. ESRD- hD in am 2. OM vs cellulitis- per podiatry, surgery. await CT results . Extensive bony destruction/lysis involving the base and proximal metadiaphysis of the 4th and 5th metatarsals as well as the adjacent cuboid bone. A small area of lysis is also seen in the distal/medial metaphysis of the 5th metatarsal, findings are stable and suspicious for osteomyelitis. 2. Large ulcer in the lateral/volar left hindfoot with soft tissue emphysema extending to the areas of osteomyelitis at the proximal 4th and 5th metatarsals and the cuboid bone. Findings are stable. 3. Stable diffuse marked soft tissue swelling of the left foot suspicious for cellulitis/soft tissue infection. 4. Incidental/nonacute findings are listed in the report. 3. DM care per medicine seen and examined w/ RN -telehealth visit Plan as above Consult Attestations Medical Necessity Statement: per medicine Time Spent in Patient Care: Greater than 35 minutes (>than 50% of time spent in counselling and/or direct pt care on unit). Coding Level of Care Code Acute Code for Chg Fwd Diagnoses ESRD (end stage renal disease) on dialysis N18.6; Z99.2
[2022-09-18 18:08] LABS: Procalcitonin 40.77 ng/mL (0-0.5)
--- NOTE | 2022-09-18 20:43 | PC.NURSE ---
pt report given to Amy SCHERER
[2022-09-18 21:36] LABS: Glucose Point of Care 135 mg/dL (70-110)
[2022-09-18] MEDS: piperacillin-tazobactam 3.375 GM in sodium chloride 0.9% (plus) 50 ML IV (22:25)
[2022-09-18] MEDS: trazodone 50 mg Tablet PO (22:26)
[2022-09-18] MEDS: oxyCODONE 5 mg IR Tab/Cap PO (22:26)
[2022-09-18] MEDS: ropinirole 0.25 mg Tablet PO (22:26)
[2022-09-18] MEDS: sevelamer 800 mg Tablet 4000 MG PO (22:34)
[2022-09-19] VITALS (10 sets, daily range): BP systolic 100–175; BP diastolic 41–84; PULSE 76–93; RESP 15–19; TEMP 36.3–37.6; O2SAT 90–96
[2022-09-19] MEDS: clindamycin 600 MG/50 ML PREMIX 100 MG IV ×2 (01:25→17:35)
[2022-09-19 04:49] LABS: Basophils # 0.1 10^3/uL (0.0-0.1); Basophils % 0.8 %; Eosinophils # 0.5 10^3/uL (0.0-0.8); Eosinophils % 7.8 %; Hematocrit 26.4 % (42.0-52.0); Hemoglobin 7.7 g/dL (11.7-16.6); Lymphocytes # 1.1 10^3/uL (0.8-4.8); Lymphocytes % 17.3 %; Mean Corpuscular HGB Conc 29.2 g/dL (30.0-36.0); Mean Corpuscular Hemoglobin 24.4 pg (28.0-34.0); Mean Corpuscular Volume 83.5 fl (80-94); Mean Platelet Volume 11.9 fL (7.4-10.4); Monocytes # 0.7 10^3/uL (0.2-0.9); Monocytes % 11.3 %; Neutrophils # 3.87 10^3/uL (1.8-7.7); Neutrophils % 62.5 %; Nucleated Red Blood Cells % 0 %; Platelet Count 186 10^3/cmm (130-400); Red Blood Count 3.16 10^6/uL (4.1-5.3); Red Cell Distribution Width 17.1 % (12.1-15.1); White Blood Count 6.2 10^3/uL (4.0-10.0)
[2022-09-19 05:10] LABS: Anion Gap 23.8 (5-19); Blood Urea Nitrogen 39 mg/dL (6-20); C Reactive Protein 113.9 mg/L (0.0-4.9); Calcium 7.9 mg/dL (8.5-10.5); Carbon Dioxide 26 mmol/L (22-29); Chloride 90 mmol/L (98-107); Glomerular Filtration Rate 12.2 mL/min (90-130); Glucose 114 mg/dL (65-115); Magnesium 1.9 mg/dL (1.7-2.3); Osmolality Calculated 292 mOsm/kg (285-295); Potassium 3.8 mmol/L (3.5-5.1); Sodium 136 mmol/L (136-145)
[2022-09-19 05:32] LABS: Phosphorus 8.1 mg/dL (2.5-4.5)
[2022-09-19] MEDS: piperacillin-tazobactam 3.375 GM in sodium chloride 0.9% (plus) 50 ML IV ×3 (06:08→21:03)
[2022-09-19] MEDS: cholecalciferol (vitamin D3) 1,000 unit Tablet 1000 UNIT PO (06:09)
[2022-09-19] MEDS: oxyCODONE 5 mg IR Tab/Cap PO ×3 (06:09→17:35)
[2022-09-19] MEDS: b-complex-vitamin c Tablet 1 EACH PO (06:09)
[2022-09-19 06:36] LABS: Glucose Point of Care 114 mg/dL (70-110)
[2022-09-19] MEDS: heparin, porcine 1,000 unit/mL INJ 10 mL 1000 UNIT IV (08:20)
--- NOTE | 2022-09-19 10:44 | PM.PN ---
Subjective Subjective: Dr. Torres has postponed the plan for debridement he has recommended amputation, will talk with the family Patient is still n.p.o. Patient is complaining of back pain due to sacral ulcer Vitals/I&O/Wt Last Vital Signs Temp 98.9 F 09/19/22 07:50 Pulse 76 09/19/22 07:50 Resp 18 09/19/22 07:50 BP 125/72 09/19/22 07:50 Pulse Ox 95 09/19/22 07:50 O2 Del Method 09/19/22 04:00 O2 Flow Rate 4 09/19/22 04:00 09/18/22 09/19/22 09/19/22 22:59 06:59 14:59 Intake Total 290 / 290 100 / 390 50 / 50 Output Total 200 / 200 Balance 290 / 290 -100 / 190 50 / 50 Weight last 48 hrs Weight 125.373 kg Weight 99.79 kg Physical Exam Narrative: Fluid overloaded Left foot in dressing Umbilical hernia Ascites AV fistula in place S1, S2 Currently on 4 L Nonfocal neuro exam Edema of legs Data 09/19/22 04:06 09/19/22 04:06 Micro: Microbiology 09/18/22 15:47 Blood Culture - Preliminary Blood SPECIMEN COLLECTED 09/18/22 15:45 Blood Culture - Preliminary Blood SPECIMEN COLLECTED A&P Assessment and plan (1) Acquired equinovarus deformity of left foot: (2) Pre-ulcerative calluses: (3) Xerosis of skin: (4) Type 2 diabetes mellitus with diabetic polyneuropathy: Qualifiers: Diabetes mellitus group home insulin use: unspecified group home insulin use status Qualified Code(s): E11.42 - Type 2 diabetes mellitus with diabetic polyneuropathy (5) ESRD (end stage renal disease) on dialysis: (6) 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: (7) Gas gangrene: Plan Left foot,Gas gangrene: Dr. Torres has commended amputation We will touch base with the patient once family is around we will see if Dr. Moreno is available versus orthopedics TTS hemodialysis sessions appreciate nephro recommendations Patient is n.p.o. We will need renal diabetic diet DVT prophylaxis on hold Continue antibiotics Fluid overloaded related to end-stage renal disease with a medical hernia which is chronic Sacral ulcer stage I no active cellulitis For pain management Right foot callus without any continued active drainage Attestations Medical Necessity Statement*: Continue medical management Coding Level of Care Code 42672 Diagnoses Acquired equinovarus deformity of left foot M21.542 Pre-ulcerative calluses L84 Xerosis of skin L85.3 Type 2 diabetes mellitus with diabetic polyneuropathy E11.42 Diabetes mellitus group home insulin use: unspecified group home insulin use status ESRD (end stage renal disease) on dialysis N18.6; Z99.2 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
--- NOTE | 2022-09-19 11:23 | PM.PN ---
Subjective Subjective: Getting HD Medications: Reviewed: Yes Vitals/I&O/Wt Last Vital Signs Temp 98.9 F 09/19/22 07:50 Pulse 76 09/19/22 07:50 Resp 18 09/19/22 07:50 BP 125/72 09/19/22 07:50 Pulse Ox 95 09/19/22 07:50 O2 Del Method 09/19/22 04:00 O2 Flow Rate 4 09/19/22 04:00 09/18/22 09/19/22 09/19/22 22:59 06:59 14:59 Intake Total 290 / 290 100 / 390 50 / 50 Output Total 200 / 200 Balance 290 / 290 -100 / 190 50 / 50 Weight last 48 hrs Weight 125.373 kg Weight 99.79 kg Physical Exam Narrative: comfortable in bed, NARD HEENT - nc/at, eomi, anicteric neck supple lungs crackles b/l heart reg abd soft, nt, nd, + bs ext LUE AVF, pr ER physician pt with large 5x5 full thickness lateral plantar ulcer/wound to left foot; drainage and foul smell present; significant swelling/edema to lower leg and foot neuro- a,a, o x 3 Data 09/19/22 04:06 09/19/22 04:06 Micro: Microbiology 09/18/22 15:47 Blood Culture - Preliminary Blood SPECIMEN COLLECTED 09/18/22 15:45 Blood Culture - Preliminary Blood SPECIMEN COLLECTED A&P Assessment and plan (1) ESRD (end stage renal disease) on dialysis: 52 yr old man ESRD, cellulitis/ Q OM 1. ESRD- HD today 2. OM vs cellulitis- per podiatry, surgery. 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 DM care per medicine seen and examined w/ RN -telehealth visit Plan as above Attestations Medical Necessity Statement*: Anticipating more than 2 midnight Coding Level of Care Code Acute Code for Chg Fwd Diagnoses ESRD (end stage renal disease) on dialysis N18.6; Z99.2
--- NOTE | 2022-09-19 11:48 | PC.CHAP ---
Pastoral Care Encounter/Spiritual Assessment Type of Contact [] Declined communication equipment mechanic visit [] Patient/Family/Request visit [] Outpatient visit [] Follow-up visit [] Physician referral [] Code/Alert [x] Routine visit [] Staff referral [] Actively dying [] Patient sleeping [] Family support [] [x] Out of room [] Palliative care [] [] Receiving care in room [] Pre-surgical visit [] Trauma [] Long length of stay [] ICU visit [] Other: Relational/Emotional Strength [] Patient feels connected with others/family/visitors/staff [] Distress [] Loneliness/isolation [] Abandonment Spirituality of Patient [] Person of Lizabeth [] Attends Cheondoism of their Lizabeth [] Believes in Prayer [] Reads Bible or Alevism materials [] There are Spiritual issues to be addressed Cop Breaker Interventions [] Prayer [] Active listening [] Non-anxious presence [] Spiritual/emotional support [] Crisis/trauma care [] Spiritual counseling [] Bereavement support [] Provided bereavement packet [] Provided Bible/devotional materials [] Provided toy/stuffed animal, coloring book to patient or family member [] Provided Communion [] Anointing/[place] [] Salvation [] Completed spiritual assessment [] Other: Impact on Illness or Injury [] Angry [] Fearful [] Anxious [] Often cries [] Exhaustion [] Unable to work [] Unable to attend scientology [] Unable to walk/stand [] Unable to read [] Unable to drive [] Unable to eat/drink [] Unable to sleep [] Unable to be with family [] Patient intubated [] Other: Summary Time spent with patient
[2022-09-19] MEDS: HYDROmorphone 1 mg/mL INJ 1 mL 0.4 MG IVP ×2 (15:15→21:03)
[2022-09-19 17:30] LABS: Glucose Point of Care 110 mg/dL (70-110)
[2022-09-19] MEDS: sevelamer 800 mg Tablet 4000 MG PO (17:34)
[2022-09-19] MEDS: cilostazol 100 mg Tablet 50 MG PO (17:35)
--- NOTE | 2022-09-19 18:16 | PM.PN ---
Subjective Subjective: Akil Velasco is a 52 year old male presenting to the emergency department for evaluation of worsening wound to the left foot and acute onset of subjective fever, malaise, nausea and chills.? He has had a wound greater than 1 year with osteomyelitis left foot involving the fifth metatarsal.? Patient has extensive comorbidities, he has diabetes with peripheral neuropathy, peripheral vascular disease, congestive heart failure, history of renal cell carcinoma, end-stage renal disease with dialysis 3 times weekly.? Wound care efforts have been challenging with patient's poor insight on his condition and failure to adhere to offloading recommendations.? Currently has a PICC line and has been receiving daptomycin.? Several cultures on file demonstrate MRSA, history of Corynebacterium, E. coli and Pseudomonas all having grown on cultures over the past 2 years of his left foot wound.? Had a family meeting today, would like to proceed with below-knee amputation of the left lower extremity. Vitals/I&O/Wt Last Vital Signs Temp 97.9 F 09/19/22 16:00 Pulse 80 09/19/22 16:00 Resp 17 09/19/22 17:35 BP 169/84 09/19/22 16:00 Pulse Ox 96 09/19/22 17:35 O2 Del Method 09/19/22 04:00 O2 Flow Rate 4 09/19/22 04:00 09/19/22 09/19/22 09/19/22 06:59 14:59 22:59 Intake Total 100 / 390 50 / 50 420 / 470 Output Total 200 / 200 Balance -100 / 190 50 / 50 420 / 470 Weight last 48 hrs Weight 276 lb 6.4 oz Weight 220 lb Physical Exam Narrative: GENERAL: Patient is alert and oriented ?3 and in no acute distress. The following is a focused bilateral lower extremity exam. VASCULAR: Dorsalis pedis palpable bilaterally posterior tibial arteries palpable. Capillary refill time less than 3 seconds to the distal hallux bilaterally. Calf is supple and nontender proximally and distally. Decreased pedal hair growth bilaterally. +2 pitting edema to the left lower extremity. +2 pitting edema to the right lower extremity. NEUROLOGICAL: Protective sensation intact 0/10 sites, tested with [place] monofilament to bilateral feet. DERMATOLOGICAL: Full-thickness wound left lateral foot with exposed fifth metatarsal base and cuboid measures 5.2 cm x 5.5 cm x 1 cm with devitalized bone. Purulent drainage and malodor from the left lateral foot wound. Induration chronic skin pigmentation changes left lower extremity greater than right. MUSCULOSKELETAL: No pain to palpation secondary to neuropathy bilateral lower extremity. No pain with posterior calf squeeze. Data 09/19/22 04:06 09/19/22 04:06 Micro: Microbiology 09/18/22 15:47 Blood Culture - Preliminary Blood NEGATIVE TO DATE 09/18/22 15:45 Blood Culture - Preliminary Blood NEGATIVE TO DATE A&P Assessment and plan (1) Type 2 diabetes mellitus with diabetic polyneuropathy: Qualifiers: Diabetes mellitus intermodal dispatcher insulin use: unspecified usp insulin use status Qualified Code(s): E11.42 - Type 2 diabetes mellitus with diabetic polyneuropathy (2) 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: Plan Akil Velasco is a 52 year old male presenting to the emergency department for evaluation of worsening wound to the left foot and acute onset of subjective fever, malaise, nausea and chills. He has had a wound greater than 1 year with osteomyelitis left foot involving the fifth metatarsal. Patient has extensive comorbidities, he has diabetes with peripheral neuropathy, peripheral vascular disease, congestive heart failure, history of renal cell carcinoma, end-stage renal disease with dialysis 3 times weekly. Wound care efforts have been challenging with patient's poor insight on his condition and failure to adhere to offloading recommendations. Currently has a PICC line and has been receiving daptomycin. Several cultures on file demonstrate MRSA, history of Corynebacterium, E. coli and Pseudomonas all having grown on cultures over the past 2 years of his left foot wound. Reviewed x-ray findings as well as CT skin findings has intraosseous emphysema within the left cuboid as well as soft tissue emphysema adjacent to the wound, osteomyelitis involving the fifth metatarsal, fourth metatarsal and cuboid. I discussed with the patient at length treatment options including surgical debridement of his left foot with continuation of daptomycin through his PICC line long-term versus below-knee amputation to the left lower extremity. Historically patient has been adamantly against any level of amputation. After discussing the extent of his left foot infection including intraosseous soft tissue emphysema involving the cuboid and osteomyelitis of the cuboid, fifth and fourth metatarsal bases. Wound debridement and IV antibiotics in his case have a low chance of being curative, his infection is polymicrobial, the level of infection in his foot does not lend itself to a functional level of amputation, [place] amputation also has a high failure rate with reulceration and leading to higher level of amputation. A more curative and a more functional level of amputation and this case would be a below-knee amputation. Patient is in agreements. He states that he is ready to proceed with a below-knee amputation. Attestations Medical Necessity Statement*: Osteomyelitis left foot Coding Level of Care Code Acute Code for [facility] Diagnoses Type 2 diabetes mellitus with diabetic polyneuropathy E11.42 Diabetes mellitus intermodal dispatcher insulin use: unspecified intermodal dispatcher insulin use status 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
[2022-09-19] MEDS: ropinirole 0.25 mg Tablet PO (21:03)
[2022-09-19] MEDS: trazodone 50 mg Tablet PO (21:03)
[2022-09-19 22:04] LABS: Glucose Point of Care 184 mg/dL (70-110)
[2022-09-20] VITALS (20 sets, daily range): BP systolic 72–149; BP diastolic 30–82; PULSE 57–120; RESP 15–20; TEMP 36.6–39.6; O2SAT 90–99
[2022-09-20] MEDS: clindamycin 600 MG/50 ML PREMIX 100 MG IV ×3 (02:00→17:59)
--- NOTE | 2022-09-20 04:53 | PC.NURSE ---
Pt referred to Dr. Aceves for review of hypotension. Awaiting orders.
[2022-09-20 05:15] LABS: Basophils # 0.1 10^3/uL (0.0-0.1); Basophils % 0.5 %; Eosinophils # 0.2 10^3/uL (0.0-0.8); Hematocrit 25.5 % (42.0-52.0); Hemoglobin 7.5 g/dL (11.7-16.6); Lymphocytes # 0.6 10^3/uL (0.8-4.8); Lymphocytes % 5.5 %; Mean Corpuscular HGB Conc 29.4 g/dL (30.0-36.0); Mean Corpuscular Hemoglobin 24.8 pg (28.0-34.0); Mean Corpuscular Volume 84.4 fl (80-94); Monocytes # 0.7 10^3/uL (0.2-0.9); Monocytes % 5.8 %; Neutrophils % 85.7 %; Nucleated Red Blood Cells % 0 %; Platelet Count 203 10^3/cmm (130-400); Red Blood Count 3.02 10^6/uL (4.1-5.3); Red Cell Distribution Width 17.6 % (12.1-15.1); White Blood Count 11.6 10^3/uL (4.0-10.0)
[2022-09-20] MEDS: b-complex-vitamin c Tablet 1 EACH PO (05:20)
[2022-09-20] MEDS: cholecalciferol (vitamin D3) 1,000 unit Tablet 1000 UNIT PO (05:20)
[2022-09-20] MEDS: piperacillin-tazobactam 3.375 GM in sodium chloride 0.9% (plus) 50 ML IV ×3 (05:20→21:31)
[2022-09-20 05:40] LABS: Anion Gap 20.3 (5-19); Blood Urea Nitrogen 30 mg/dL (6-20); Calcium 7.9 mg/dL (8.5-10.5); Carbon Dioxide 27 mmol/L (22-29); Chloride 96 mmol/L (98-107); Glomerular Filtration Rate 14.6 mL/min (90-130); Glucose 175 mg/dL (65-115); Osmolality Calculated 298 mOsm/kg (285-295); Potassium 4.3 mmol/L (3.5-5.1); Sodium 139 mmol/L (136-145)
[2022-09-20] MEDS: midodrine 5 mg TABLET 10 MG PO ×4 (05:45→21:31)
[2022-09-20] MEDS: sodium chloride 0.9% 500 ML IV (05:46)
--- NOTE | 2022-09-20 06:00 | PC.NURSE ---
Repeat b/p manually per carlos request. Pt remains hypotensive. Varghese instructed this nurse that he put in orders for pt to received 1) albumin 2) NS bolus 3) daptomycin 4) midodrine. 30 minutes after administration this nurse informed to recheck manual b/p and call physician w/results. Pt also to receive 1 unit of PRBCs after being typed and crossed. Awaiting lab to draw for type and cross.
[2022-09-20] MEDS: albumin 25 G/100 ML BAG 60 G IV (06:14)
--- NOTE | 2022-09-20 06:30 | PM.PN ---
Subjective Subjective: upset about being on dialysis. upset about needing amputation. BP low. awakenng and more alert. has anasarca. denies sob. Medications: Reviewed: Yes Medication Review Details: Current Medications Acetaminophen (Acetaminophen 500 Mg Tablet) 500 mg PO Q4H PRN PRN Reason: fever Albuterol Sulfate (Albuterol 2.5 Mg/3 Ml Neb) 2.5 mg INHALATION Q6H PRN PRN Reason: SHORTNESS OF BREATH Cilostazol (Cilostazol 100 Mg Tablet) 50 mg PO BID [place] Last Admin: 09/19/22 17:35 Dose: 50 mg Dextrose (Dextrose 50% Syringe 50 Ml) 25 ml IVP ONCE PRN; Protocol PRN Reason: hypoglycemia protocol Dextrose (Dextrose 50% Syringe 50 Ml) 50 ml IVP PRN PRN; Protocol PRN Reason: hypoglycemia protocol Glucagon (Glucagon 1 Mg/Ml Inj 1 Ml) 1 mg IM ONCE PRN; Protocol PRN Reason: Adult Acute Hypoglycemia Prot. Hydromorphone HCl (Hydromorphone 1 Mg/Ml Inj 1 Ml) 0.4 mg IVP Q4H PRN PRN Reason: severe pain Last Admin: 09/19/22 21:03 Dose: 0.4 mg Dextrose (D5w) 500 mls @ 100 mls/hr IV ONCE PRN; Protocol PRN Reason: Adult Acute Hypoglycemia Prot Piperacillin Sod/Tazobactam (Sod 3.375 gm/ Sodium Chloride) 50 mls @ 12.5 mls/hr IV Q8H [place]; Protocol Last Titration: 09/20/22 06:16 Dose: 100 mls/hr Clindamycin HCl/Dextrose (Cleocin) 600 mg in 50 mls @ 100 mls/hr IV Q8H [place]; Protocol Last Titration: 09/20/22 02:32 Dose: Infused Albumin Human (Albumin) 12.5 gm in 50 mls @ 60 mls/hr IV PRN PRN PRN Reason: Hypotension and/or symptomatic Norepinephrine Bitartrate 4 mg (/ Dextrose) 254 mls @ 0 mls/hr IV .Q0M [place]; Protocol Sodium Chloride (Sodium Chloride 0.9%) 500 mls @ 500 mls/hr IV ONCE ONE Stop: 09/20/22 06:37 Last Admin: 09/20/22 05:46 Dose: 500 mls/hr Albumin Human (Albumin) 25 g in 100 mls @ 60 mls/hr IV Q8H [facility] Last Admin: 09/20/22 06:14 Dose: 60 mls/hr Daptomycin 752 mg/ Sodium (Chloride) 100 mls @ 100 mls/hr IV Q24H [facility]; Protocol Last Admin: 09/20/22 06:17 Dose: 100 mls/hr Insulin Human Lispro (Insulin Lispro 100 Unit/1 Ml) 0 unit SUBCUT TIDWM [facility]; Protocol Last Admin: 09/19/22 17:35 Dose: Not Given Ipratropium [place] (Ipratropium 0.5 Mg/2.5 Ml Neb) 0.5 mg INHALATION Q6H PRN PRN Reason: SHORTNESS OF BREATH Midodrine (Midodrine 5 Mg Tablet) 10 mg PO TID [facility] Last Admin: 09/20/22 05:45 Dose: 10 mg Multivitamins (S-Mnsklwo-Fcswsgu C Tablet) 1 each PO QAM [facility] Last Admin: 09/20/22 05:20 Dose: 1 each Ondansetron HCl (Ondansetron 2 Mg/Ml Sdv 2 Ml) 4 mg IVP Q6H PRN PRN Reason: NAUSEA AND VOMITING Oxycodone HCl (Oxycodone 5 Mg Ir Tab/Cap) 5 mg PO Q6H PRN PRN Reason: Pain Last Admin: 09/19/22 17:35 Dose: 5 mg Ropinirole HCl (Ropinirole 0.25 Mg Tablet) 0.25 mg PO BEDTIME PRN PRN Reason: Restless Leg(S) Last Admin: 09/19/22 21:03 Dose: 0.25 mg Sevelamer Carbonate (Sevelamer 800 Mg Tablet) 4,000 mg PO TIDWM [facility] Last Admin: 09/19/22 17:34 Dose: 4,000 mg Sevelamer Carbonate (Sevelamer 800 Mg Tablet) 3,200 mg PO BID PRN PRN Reason: WITH SNACKS Sodium Chloride (Sodium Chloride 0.9% 100 Ml Bag) 50 ml IV PRN PRN PRN Reason: Blood transfusion prime and flush Stop: 09/21/22 05:35 Sodium Thiosulfate (Sodium Thiosulfate 12.5 Gm/50 Ml Sdv) 1 gm IV TuThSa@0900 [facility] Trazodone HCl (Trazodone 50 Mg Tablet) 50 mg PO BEDTIME PRN PRN Reason: Sleep Last Admin: 09/19/22 21:03 Dose: 50 mg Vitamin D (Cholecalciferol (Vitamin D3) 1,000 Unit Tablet) [facility] [place] Last Admin: 09/20/22 05:20 Dose: 1,000 unit Vitals/I&O/Wt Last Vital Signs Temp 99.2 F 09/20/22 04:15 Pulse 94 09/20/22 04:15 Resp 19 H 09/20/22 04:15 BP 80/30 09/20/22 04:52 Pulse Ox 90 09/20/22 04:15 O2 Del Method 09/20/22 00:00 O2 Flow Rate 2 09/20/22 00:00 09/19/22 09/19/22 09/20/22 14:59 22:59 06:59 Intake Total 50 / 50 470 / 520 111.667 / 631.667 Balance 50 / 50 470 / 520 111.667 / 631.667 Weight last 48 hrs Weight 125.373 kg Weight 99.79 kg Physical Exam Narrative: BP low. anasarca, obesee in bed, NARD HEENT - nc/at, eomi, anicteric neck supple lungs crackles b/l heart reg abd soft, nt, nd, + bs ext LUE AVF, pr ER physician pt with large 5x5 full thickness lateral plantar ulcer/wound to left foot; drainage and foul smell present; significant swelling/edema to lower leg and foot neuro- a,a, o x 2+, moves all extremities b/l edema Data 09/20/22 04:50 09/20/22 04:50 Micro: Microbiology 09/20/22 06:15 Blood Culture - Preliminary Blood SPECIMEN COLLECTED 09/20/22 06:13 Blood Culture - Preliminary Blood SPECIMEN COLLECTED 09/18/22 15:47 Blood Culture - Preliminary Blood NEGATIVE TO DATE 09/18/22 15:45 Blood Culture - Preliminary Blood NEGATIVE TO DATE A&P Assessment and plan (1) ESRD (end stage renal disease) on dialysis: 52 yr old man ESRD, cellulitis/ Q OM 1. ESRD- HD TTS 2. OM vs cellulitis- per podiatry, for LEft BKA 3. hypotension- check tsh. 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 DM care per medicine 6. anemia- check iron studies- agree w/ 1 u prbc tx and ALBERTO seen and examined w/ RN -telehealth visit Plan as above Attestations Medical Necessity Statement*: left foot OM Time Spent in Patient Care: 16 - 35 minutes (>than 50% of time spent in counselling and/or direct pt care on unit). Coding Level of Care Code Acute Code for Chg Fwd Diagnoses ESRD (end stage renal disease) on dialysis N18.6; Z99.2
--- NOTE | 2022-09-20 06:49 | PC.NURSE ---
Manually recheck of b/p /54. Instructed to hold of on ICU transfer and levophen. Con't to monitor.
[2022-09-20 06:59] LABS: Glucose Point of Care 178 mg/dL (70-110)
[2022-09-20 07:41] LABS: Calcium 7.7 mg/dL (8.5-10.5)
[2022-09-20 07:48] LABS: Parathyroid Hormone 189.7 pg/mL (15-65)
--- NOTE | 2022-09-20 08:20 | P.CONIM_ITS ---
Providers/Reason For Consult Consulting Physician/Specialty*: Laureano Crane DO/orthopedic surgery Reason for Consult*: Chronic left foot wound and osteomyelitis, consultation placed to perform left below the knee amputation Attending Physician: Chris Johansen MD Primary Care Provider: Sulma Wetzel MD History of Present Illness History of Present Illness Akil Velasco is a 52 year old male ?presented to emergency department for evaluation of worsening wound to the left foot and acute onset of subjective fever, malaise, nausea and chills.? He has had a wound greater than 1 year with osteomyelitis left foot involving the fifth metatarsal.? Patient has extensive comorbidities, he has diabetes with peripheral neuropathy, peripheral vascular disease, congestive heart failure, history of renal cell carcinoma, end-stage renal disease with dialysis 3 times weekly.? Wound care efforts have been challenging with patient's poor insight on his condition and failure to adhere to offloading recommendations.? Currently has a PICC line and has been receiving daptomycin.? Several cultures on file demonstrate MRSA, history of Corynebacterium, E. coli and Pseudomonas all having grown on cultures over the past 2 years of his left foot wound.? Patient has calciphylaxis. He is currently been worked up with the primary team hospitalist, podiatry team and also has been followed with our wound care physician Dr. Moreno who is cardio thoracic surgeon and aware of patient's vascular status. Orthopedics was consulted as patient at this point time is now become agreeable to amputation given the extent of his infection in his left foot. I was asked on board to perform a left below the knee amputation as this would be the patient's most lowest level of possible limb salvage to at least eradicate his infection however there is some concerns with his peripheral vascular disease as well as soft tissue envelope around the tibial region below the knee that could provide some wound complications down the road with a below the knee amputation but at this point in time he is adamant about holding off on an [id number]-efwz amputation. On my evaluation he denies any fevers chills chest pain shortness of breath nausea or vomiting. Review of Systems General: Reports: 10 or more systems reviewed and unremarkable except in HPI and below Medications/Allergies Home Medications Medication Instructions Recorded Confirmed Last Taken Type vit B,C-folic ac 800 mcg-zinc 12.5 1 tab PO QAM 04/25/21 09/18/22 09/18/22 History mg-selen-D3 2,000 unit-vit E tablet (RenaPlex-D) Wheel Chair #1 ea 08/18/21 09/18/22 09/12/22 Rx gabapentin 300 mg capsule 300 mg PO TID 08/22/21 09/18/22 09/18/22 08:00 History ropinirole 0.25 mg tablet 0.25 mg PO BEDTIME PRN Restless 08/22/21 09/18/22 09/12/22 History Leg(S) sodium zirconium cyclosilicate 5 See Rx Instructions .Route .COMPLEX 08/22/21 09/18/22 09/13/22 History gram oral powder packet (Lokelma) trazodone 50 mg tablet 50 mg PO BEDTIME PRN Sleep 08/22/21 09/18/22 09/12/22 History torsemide 100 mg tablet 100 mg PO BID 01/31/22 09/18/22 09/18/22 08:00 History cholecalciferol (vitamin D3) 25 25 mcg PO QAM 04/11/22 09/18/22 09/18/22 History mcg (1,000 unit) tablet (Vitamin D3) ondansetron HCl 4 mg tablet 4 mg PO Q8H PRN Nausea 04/11/22 09/18/22 09/12/22 History Compression Stockings #1 ea 04/12/22 09/18/22 09/12/22 Rx sodium thiosulfate 1 gram/10 mL 1 g IV .3X WEEK 06/06/22 09/18/22 09/12/22 History (100 mg/mL) intravenous solution [place] boot modification #1 ea 07/17/22 09/18/22 09/12/22 Rx cilostazol 50 mg tablet 50 mg PO BID 08/16/22 09/18/22 09/18/22 08:00 History oxycodone 5 mg tablet 5 mg PO Q6H PRN Pain 08/16/22 09/18/22 09/18/22 08:00 History daptomycin 500 mg intravenous 650 mg IV Q48H 09/18/22 09/18/22 09/17/22 History solution lidocaine-prilocaine 2.5 %-2.5 % See Rx Instructions .Route .COMPLEX 09/18/22 09/18/22 Unknown History topical cream multivitamin 1 tab PO QAM 09/18/22 09/18/22 09/18/22 History sevelamer carbonate 800 mg tablet See Rx Instructions .Route .COMPLEX 09/18/22 09/18/22 Unknown History Allergies Allergy/AdvReac Type Severity Reaction Status Date / Time linezolid [From Zyvox] Allergy tendonitis Verified 09/18/22 15:03 vancomycin Allergy Unknown Verified 09/18/22 15:03 ciprofloxacin [From Cipro] AdvReac Severe Tendonitis Verified 09/18/22 15:03 Current Medications Generic Name Dose Route Start Last Admin Trade Name Freq PRN Reason Stop Dose Admin Cilostazol 50 mg 09/19/22 09:00 09/19/22 17:35 Cilostazol 100 Mg Tablet PO 50 mg BID [place] Administration Hydromorphone HCl 0.4 mg 09/19/22 13:14 09/19/22 21:03 Hydromorphone 1 Mg/Ml Inj 1 Ml IVP 0.4 mg Q4H PRN Administration severe pain Piperacillin Sod/Tazobactam 50 mls @ 12.5 mls/hr 09/18/22 22:00 09/20/22 06:51 Sod 3.375 gm/ Sodium Chloride IV Infused Q8H [place] Infusion Protocol Clindamycin HCl/Dextrose 600 mg in 50 mls @ 100 mls/hr 09/19/22 01:00 09/20/22 02:32 Cleocin IV Infused Q8H [place] Infusion Protocol Albumin Human 25 g in 100 mls @ 60 mls/hr 09/20/22 06:00 09/20/22 07:56 Albumin IV Infused Q8H [place] Infusion Daptomycin 752 mg/ Sodium 100 mls @ 100 mls/hr 09/20/22 06:00 09/20/22 07:55 Chloride IV Infused Q24H [place] Infusion Protocol Insulin Human Lispro 0 unit 09/18/22 20:55 09/19/22 17:35 Insulin Lispro 100 Unit/1 Ml SUBCUT Not Given TIDWM [place] Protocol Midodrine 10 mg 09/20/22 05:35 09/20/22 05:45 Midodrine 5 Mg Tablet PO 10 mg TID [place] Administration Multivitamins 1 each 09/19/22 06:00 09/20/22 05:20 B-Bchfgmj-Avpphhz C Tablet PO 1 each QAM [place] Administration Oxycodone HCl 5 mg 09/18/22 20:55 09/19/22 17:35 Oxycodone 5 Mg Ir Tab/Cap PO 5 mg Q6H PRN Administration Pain Ropinirole HCl 0.25 mg 09/18/22 20:55 09/19/22 21:03 Ropinirole 0.25 Mg Tablet PO 0.25 mg BEDTIME PRN Administration Restless Leg(S) Sevelamer Carbonate 4,000 mg 09/18/22 20:55 09/19/22 17:34 Sevelamer 800 Mg Tablet PO 4,000 mg TIDWM [place] Administration Trazodone HCl 50 mg 09/18/22 20:55 09/19/22 21:03 Trazodone 50 Mg Tablet PO 50 mg BEDTIME PRN Administration Sleep Vitamin D 1,000 unit 09/19/22 06:00 09/20/22 05:20 Cholecalciferol (Vitamin D3) 1,000 Unit Tablet PO 1,000 unit QAM [place] Administration PFSH Acute PFSH: Medical History (Updated 09/24/22 @ 22:47 by Laureano Crane DO) Anemia BMI 50.0-59.9, adult Cardiac arrest (~07/2020) when had covid Cellulitis CHF (congestive heart failure), NYHA class III Chronic respiratory failure with hypoxia and hypercapnia Chronic ulcer of left foot with fat layer exposed Chronic venous insufficiency COPD (chronic obstructive pulmonary disease) Diabetes Diabetic foot ulcers ESRD (end stage renal disease) on dialysis First degree heart block Foot osteomyelitis, left Fracture of fifth metatarsal bone of left foot Fracture of fourth metatarsal bone of left foot Fracture, thoracic vertebra T7-T8 History of renal cell carcinoma Hypertension Lung nodule Morbid obesity with BMI of 40.0-44.9, adult Neuropathy Non-healing ulcer of right foot with fat layer exposed Non-pressure chronic ulcer of other 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 No recurrence for long-term follow-up with some suspicion on CT scan April 2020. Restrictive lung disease Type 2 diabetes mellitus with diabetic polyneuropathy Urinary retention Surgical History H/O partial nephrectomy bilateral H/O wisdom tooth extraction History of cataract surgery Hx of lymph node excision Family History Father , at age 65 Diabetes Cancer Metastatic prostate cancer to liver Mother , at age 72 Diabetes Grandfather Diabetes Cancer Other Anemia Hyperlipidemia Social History Smoking and tobacco status: never smoked Second hand smoke exposure: Yes Smoking risk assessment/counseling performed?: Yes Alcohol intake: current Alcohol intake frequency: holidays/special occasions only Lives independently: Yes Household members: spouse Housing: House Marital status: service: No Current occupational status: retired Pets and animals: Yes Current gender identity: Male Vitals/I&O/Wt Last Vital Signs Temp 99.2 F 09/20/22 04:15 Pulse 85 09/20/22 07:52 Resp 16 09/20/22 07:52 BP 98/54 09/20/22 06:46 Pulse Ox 90 09/20/22 07:52 O2 Del Method 09/20/22 07:52 O2 Flow Rate 2 09/20/22 00:00 09/19/22 09/20/22 09/20/22 22:59 06:59 14:59 Intake Total 470 / 520 150.000 / 670.000 700 / 700 Balance 470 / 520 150.000 / 670.000 700 / 700 Weight last 48 hrs Weight 280 lb 14.4 oz Weight 276 lb 6.4 oz Weight 220 lb Physical Exam Narrative: Patient appears to be older than stated age. Patient appears to be pale. Dressings are on in place to the bilateral lower extremities. Bilateral lower extremity edema noted. Patient has severe peripheral vascular disease and venous stasis and insufficiency of the bilateral lower extremities from below the knee down with noticeable pigmentation change as well as thickened velvety skin and significant dry skin. Soft tissue envelope definitely concerning for wound healing at a below the knee amputation. Slightly better above the knee however over the medial aspect there again continues to have hypopigmented and thickened fibrotic skin above the knee. He has sausage digits noted of his left foot. His dressings are on in place these were not taken down his podiatry has already evaluated these these were redressed. Noticeable erythema around the entire aspect of the foot extending from the lateral foot wound that is dressed. According to podiatry's note and discussion with them left foot wound Full- thickness wound left lateral foot with exposed fifth metatarsal base and cuboid measures 5.2 cm x 5.5 cm x 1 cm with devitalized bone.? Purulent drainage and malodor from the left lateral foot wound. Significant diffuse peripheral neuropathy throughout the left foot. patient does have a palpable DP and posterior tib pulse. Patient is able to wiggle his toes as well as plantarflex and dorsiflex ankle to the left foot. Patient has wound on right foot which is dressed and currently being managed by podiatry similar changes to the right lower extremity comparable to the left side. Data 09/20/22 04:50 09/20/22 04:50 Micro: Microbiology 09/20/22 06:15 Blood Culture - Preliminary Blood SPECIMEN COLLECTED 09/20/22 06:13 Blood Culture - Preliminary Blood SPECIMEN COLLECTED 09/18/22 15:47 Blood Culture - Preliminary Blood NEGATIVE TO DATE 09/18/22 15:45 Blood Culture - Preliminary Blood NEGATIVE TO DATE Other CT: Radiologist's impression: CT/CT foot LT w con [id number] IMPRESSION: ? 1.? Evidence of osteomyelitis involving the base of the 4th and 5th metatarsals as well as the adjacent cuboid. Associated locules of interosseous gas suspicious for emphysematous osteomyelitis with gas-forming organisms 2.? Ulceration involving the lateral aspect of the foot overlying the 4th and 5th metatarsals. No well-formed drainable fluid collection or drainable abscess. 3.? Diffuse cellulitis. 4.? Demineralization LEFT foot. Xray Ortho: Radiologist's impression: XR/XR foot LT min 3V* [id number] IMPRESSION: 1. Extensive bony destruction/lysis involving the base and proximal metadiaphysis of the 4th and 5th metatarsals as well as the adjacent cuboid bone. A small area of lysis is also seen in the distal/medial metaphysis of the 5th metatarsal, findings are stable and suspicious for osteomyelitis. 2. Large ulcer in the lateral/volar left hindfoot with soft tissue emphysema extending to the areas of osteomyelitis at the proximal 4th and 5th metatarsals and the cuboid bone. Findings are stable. 3. Stable diffuse marked soft tissue swelling of the left foot suspicious for cellulitis/soft tissue infection. 4. Incidental/nonacute findings are listed in the report. A&P Assessment and plan (1) 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: (2) Foot osteomyelitis, left: (3) Type 2 diabetes mellitus with diabetic polyneuropathy: Qualifiers: Diabetes mellitus intermediate accountant insulin use: unspecified intermediate accountant insulin use status Qualified Code(s): E11.42 - Type 2 diabetes mellitus with diabetic polyneuropathy (4) ESRD (end stage renal disease) on dialysis: Plan N.p.o. at midnight Medically optimized per primary team for surgery Podiatry on board and managing right foot wound Dr. Moreno cardiothoracic/vascular on board and appreciate discussion and setting expectations for amputation level Plan for left below the knee amputation tomorrow Patient receiving 1 unit PRBC for optimization prior to surgery Continue antibiotics MDM: Akil is a pleasant 52-year-old gentleman who unfortunately appears much older than his stated age. He has significant comorbidities namely significant peripheral vascular disease as well as end-stage renal disease and on dialysis diabetic with peripheral neuropathy. He has bilateral foot wounds. With his left foot now having extensive osteomyelitis and gas noted on CT scan. He has no signs of necrotizing fasciitis on clinical examination and at this point time he has been worked up with the podiatry team plan for debridements but given the extensiveness of the infection ultimately he as well as Dr. Moreno wound care/vascular recommending an amputation. I was consulted to perform the left below the knee amputation. On my evaluation he does have significant poor soft tissue envelope from the knee below with significant peripheral vascular skin changes with thickened velvety fibrotic skin with significantly dry. He states this is improved from before but at this point time I do have some harbored expectations and guarded prognosis of the healing of this stump. We had a long thoughtful discussion about amputation levels as well as setting appropriate expectations. At this point in time I do feel as though any amputation above the ankle obviously would be most appropriate to at least eradicate patient's osteomyelitis of the foot and hopefully prevent him from having a more septic type picture if this is left to continue to fester. Pertaining to a left below the knee amputation versus a left AKA we did talk about each and ultimately he would like to preserve as much length as possible. I do feel as though the left below the knee amputation stump will potentially have a high risk of wound complications I do understand his wishes and through a shared decision-making approach we have to proceed with starting with a left below the knee amputation stump understanding that this may have wound issues. We did have him discuss with Dr. Moreno wound care/cardiothoracic/vascular surgery appreciate his comments that vascular montoya he may not even heal this below-knee potation stump but ultimately in order to preserve patient's leg length is much as possible and patient's wishes patient is agreeable to proceed with a left below the knee amputation stump at this time. We talked about the risk benefits complication alternatives surgical nonsurgical treatment options. Risk of surgery include but not limited to make a better make it worse, blood clot, heart attack, stroke, on the table, blood loss, wound complications, or infection. Understands risk of surgery patient elects to proceed with surgical intervention of a left below the knee amputation stump. Will be optimized by the primary team and plan will be for surgery tomorrow. Patient understands and agrees with current plan. All questions are answered. Coding Level of Care Code Acute Code for Chg Fwd Diagnoses 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 Foot osteomyelitis, left M86.9 Type 2 diabetes mellitus with diabetic polyneuropathy E11.42 Diabetes mellitus intermediate accountant insulin use: unspecified intermediate accountant insulin use status ESRD (end stage renal disease) on dialysis N18.6; Z99.2 Time Spent (min) 65
[2022-09-20 08:53] LABS: Ferritin 334 ng/mL (30-400); Iron 16 ug/dL (59-158); Percent Saturation 14.8 % (20-50); Total Iron Binding Capacity 108 mcg/dl; Unsaturated Iron Binding 92 ug/dL (112-347)
[2022-09-20 09:08] LABS: 25 Hydroxy Vitamin D 15 ng/mL (30-100)
[2022-09-20] MEDS: cilostazol 100 mg Tablet 50 MG PO (09:47)
[2022-09-20] MEDS: sevelamer 800 mg Tablet 4000 MG PO ×2 (09:49→17:59)
[2022-09-20] MEDS: insulin lispro 100 unit/1 mL SUBCUT (09:50)
--- NOTE | 2022-09-20 10:29 | PC.HD ---
Dialysis fluid removal goal not met due to hypotension. Pt was medicated for left foot pain 8/10, was still 7/10 at best, pt's RN ntfd.
--- NOTE | 2022-09-20 11:15 | P.PN_ITS ---
Subjective Subjective: Pressure 94/52 this morning patient is getting albumin Asymptomatic at all No chest pain or abdominal pain No active emesis Patient clinically looks dehydrated with third spacing abdominal distended Vitals/I&O/Wt Last Vital Signs Temp 98.4 F 09/20/22 08:00 Pulse 83 09/20/22 08:00 Resp 16 09/20/22 08:00 BP 94/52 09/20/22 08:00 Pulse Ox 92 09/20/22 08:00 O2 Del Method 09/20/22 08:00 O2 Flow Rate 2 09/20/22 00:00 09/19/22 09/20/22 09/20/22 22:59 06:59 14:59 Intake Total 470 / 1020 150.000 / 6460.963 8566 / 1110 Balance 470 / -1864 150.000 / -0980.598 4238 / 1110 Weight last 48 hrs Weight 127.414 kg Weight 122.1 kg Weight 125.373 kg Weight 99.79 kg Physical Exam Narrative: Clinical signs of third spacing Ascites Muscle mass loss Dry skin No active symptoms Sitting at the bedside Awake and alert On focal neuro exam Foot covered in dressing Stage I sacral ulcer Currently on 2 L nasal cannula Data 09/20/22 04:50 09/20/22 04:50 Micro: Microbiology 09/20/22 06:15 Blood Culture - Preliminary Blood SPECIMEN COLLECTED 09/20/22 06:13 Blood Culture - Preliminary Blood SPECIMEN COLLECTED 09/18/22 15:47 Blood Culture - Preliminary Blood NEGATIVE TO DATE 09/18/22 15:45 Blood Culture - Preliminary Blood NEGATIVE TO DATE A&P Assessment and plan (1) Ulcer of sacral region, stage 1: (2) Gas gangrene: (3) Acquired equinovarus deformity of left foot: (4) Pre-ulcerative calluses: (5) Xerosis of skin: (6) Type 2 diabetes mellitus with diabetic polyneuropathy: Qualifiers: Diabetes mellitus senior care insulin use: unspecified bed bug exterminator insulin use status Qualified Code(s): E11.42 - Type 2 diabetes mellitus with diabetic polyneuropathy (7) Vitamin D deficiency: (8) ESRD (end stage renal disease) on dialysis: (9) 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: Plan Gas gangrene Left foot osteomyelitis Plan for below-knee amputation We will follow-up with Dr. Crane Patient is n.p.o. Getting albumin for low blood pressure Hold Dilaudid and add midodrine He has received bolus in the morning He may require ICU after his surgery Continue IV antibiotics No fever White count noticed Dr. Torres has signed off this case to Dr. Crane end stage renal disease dialysis tomorrow Anemia of chronic disease hemoglobin stable Hold cilostazol, Third spacing with ascites, no active abdominal pain, currently on antibiotics patient gets paracentesis every other week stage I sacral ulcer: Offloading dressing Guarded prognosis Patient is full code N.p.o. DVT prophylaxis on hold Attestations Medical Necessity Statement*: Awaiting surgical consultation Coding Level of Care Code 28131 Diagnoses Ulcer of sacral region, stage 1 L98.429 Gas gangrene A48.0 Acquired equinovarus deformity of left foot M21.542 Pre-ulcerative calluses L84 Xerosis of skin L85.3 Type 2 diabetes mellitus with diabetic polyneuropathy E11.42 Diabetes mellitus senior care insulin use: unspecified bed bug exterminator insulin use status Vitamin D deficiency E55.9 ESRD (end stage renal disease) on dialysis N18.6; Z99.2 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
[2022-09-20] MEDS: HYDROmorphone 1 mg/mL INJ 1 mL 0.4 MG IVP ×2 (11:46→22:42)
--- NOTE | 2022-09-20 13:28 | PM.MISC ---
Miscellaneous Note Purpose of Documentation: I have conferred with my colleague Dr. Crane concerning the difficult situation with Mr. Velasco and subsequent need for amputation due to extensive osteomyelitis involving his foot. He has numerous medical comorbidities including diabetes, hepatic dysfunction, end-stage renal disease on hemodialysis. Given his numerous comorbidities, I do not believe he will be able to successfully ambulate with prosthesis following any level of amputation and given his overall skin condition, does have a higher risk for subsequent wound failure related to a below-knee amputation. Mr. Velasco appears to be very cognizant of his medical challenges and if it is agreed to proceed with a below-knee amputation for maximal limb length salvage, it is not unreasonable to expect that he may have wound healing challenges that may be successfully overcome or ultimately result in the need for an above-knee amputation.
[2022-09-20] MEDS: albumin 25 G/100 ML VIAL IV ×2 (14:27→21:32)
[2022-09-20] MEDS: sodium chloride 0.9% (100 ml) 100 ML 50 ML (15:28)
[2022-09-20 17:48] LABS: Glucose Point of Care 133 mg/dL (70-110)
[2022-09-20 17:48] LABS: Glucose Point of Care 128 mg/dL (70-110)
[2022-09-20 21:33] LABS: Glucose Point of Care 142 mg/dL (70-110)
[2022-09-21] VITALS (31 sets, daily range): BP systolic 47–143; BP diastolic 14–112; PULSE 68–91; RESP 6–89; TEMP 36.1–36.8; O2SAT 90–99
[2022-09-21 00:24] LABS: Hematocrit 26.2 % (42.0-52.0); Hemoglobin 7.6 g/dL (11.7-16.6)
[2022-09-21] MEDS: clindamycin 600 MG/50 ML PREMIX 100 MG IV ×3 (00:44→16:41)
[2022-09-21 05:05] LABS: Basophils # 0.1 10^3/uL (0.0-0.1); Basophils % 1.1 %; Eosinophils # 0.6 10^3/uL (0.0-0.8); Eosinophils % 8.5 %; Hematocrit 27.7 % (42.0-52.0); Hemoglobin 8.2 g/dL (11.7-16.6); Lymphocytes % 15.6 %; Mean Corpuscular HGB Conc 29.6 g/dL (30.0-36.0); Mean Corpuscular Hemoglobin 25.4 pg (28.0-34.0); Mean Corpuscular Volume 85.8 fl (80-94); Mean Platelet Volume 11.6 fL (7.4-10.4); Monocytes # 0.7 10^3/uL (0.2-0.9); Neutrophils % 63.5 %; Nucleated Red Blood Cells % 0 %; Platelet Count 213 10^3/cmm (130-400); Red Blood Count 3.23 10^6/uL (4.1-5.3); Red Cell Distribution Width 17.6 % (12.1-15.1); White Blood Count 6.5 10^3/uL (4.0-10.0)
[2022-09-21] MEDS: albumin 25 G/100 ML VIAL IV ×2 (05:17→21:51)
[2022-09-21] MEDS: oxyCODONE-APAP 5-325 mg Tablet 1 TAB PO (05:19)
[2022-09-21] MEDS: b-complex-vitamin c Tablet 1 EACH PO (05:19)
[2022-09-21] MEDS: cholecalciferol (vitamin D3) 1,000 unit Tablet 1000 UNIT PO (05:19)
[2022-09-21 05:21] LABS: Alanine Aminotransferase < 5 U/L (0-41); Albumin Level 2.9 g/dL (3.5-5.2); Alkaline Phosphatase 126 U/L (40-130); Anion Gap 22.5 (5-19); Aspartate Amino Transferase 10 U/L (0-40); Blood Urea Nitrogen 37 mg/dL (6-20); Calcium 8.2 mg/dL (8.5-10.5); Carbon Dioxide 27 mmol/L (22-29); Chloride 95 mmol/L (98-107); Globulin 4.1 g/dL (1.3-4.6); Glucose 122 mg/dL (65-115); Osmolality Calculated 300 mOsm/kg (285-295); Potassium 4.5 mmol/L (3.5-5.1); Sodium 140 mmol/L (136-145); Total Bilirubin 0.9 mg/dL (0.15-1.2)
[2022-09-21 06:24] LABS: Glucose Point of Care 126 mg/dL (70-110)
[2022-09-21] MEDS: piperacillin-tazobactam 3.375 GM in sodium chloride 0.9% (plus) 50 ML IV ×2 (06:36→21:35)
--- NOTE | 2022-09-21 06:46 | PM.PN ---
Subjective Subjective: sad about need for an amputation. denies n/v/f/c/acosta/d. chronic ESTRADA. no sob at rest. Medications: Reviewed: Yes Medication Review Details: Current Medications Acetaminophen (Acetaminophen 500 Mg Tablet) 500 mg PO Q4H PRN PRN Reason: fever Albuterol Sulfate (Albuterol 2.5 Mg/3 Ml Neb) 2.5 mg INHALATION Q6H PRN PRN Reason: SHORTNESS OF BREATH Dextrose (Dextrose 50% Syringe 50 Ml) 25 ml IVP ONCE PRN; Protocol PRN Reason: hypoglycemia protocol Dextrose (Dextrose 50% Syringe 50 Ml) 50 ml IVP PRN PRN; Protocol PRN Reason: hypoglycemia protocol Glucagon (Glucagon 1 Mg/Ml Inj 1 Ml) 1 mg IM ONCE PRN; Protocol PRN Reason: Adult Acute Hypoglycemia Prot. Hydromorphone HCl (Hydromorphone 1 Mg/Ml Inj 1 Ml) 0.4 mg IVP Q4H PRN PRN Reason: severe pain Last Admin: 09/20/22 22:42 Dose: 0.4 mg Dextrose (D5w) 500 mls @ 100 mls/hr IV ONCE PRN; Protocol PRN Reason: Adult Acute Hypoglycemia Prot Piperacillin Sod/Tazobactam (Sod 3.375 gm/ Sodium Chloride) 50 mls @ 12.5 mls/hr IV Q8H [place]; Protocol Last Admin: 09/21/22 06:36 Dose: 12.5 mls/hr Clindamycin HCl/Dextrose (Cleocin) 600 mg in 50 mls @ 100 mls/hr IV Q8H [place]; Protocol Last Infusion: 09/21/22 01:24 Dose: Infused Albumin Human (Albumin) 12.5 gm in 50 mls @ 60 mls/hr IV PRN PRN PRN Reason: Hypotension and/or symptomatic Norepinephrine Bitartrate 4 mg (/ Dextrose) 254 mls @ 0 mls/hr IV .Q0M [place]; Protocol Daptomycin 752 mg/ Sodium (Chloride) 100 mls @ 100 mls/hr IV Q24H [place]; Protocol Last Infusion: 09/21/22 06:39 Dose: Infused Albumin Human (Albumin) 25 g in 100 mls @ 60 mls/hr IV Q8H [place] Last Admin: 09/21/22 05:17 Dose: 60 mls/hr Insulin Human Lispro (Insulin Lispro 100 Unit/1 Ml) 0 unit SUBCUT TIDWM [facility]; Protocol Last Admin: 09/20/22 17:56 Dose: Not Given Ipratropium [place] (Ipratropium 0.5 Mg/2.5 Ml Neb) 0.5 mg INHALATION Q6H PRN PRN Reason: SHORTNESS OF BREATH Midodrine (Midodrine 5 Mg Tablet) 10 mg PO TID [facility] Last Admin: 09/20/22 21:31 Dose: 10 mg Multivitamins (Y-Xhutsmy-Kwutlun C Tablet) 1 each PO QAM [facility] Last Admin: 09/21/22 05:19 Dose: 1 each Ondansetron HCl (Ondansetron 2 Mg/Ml Sdv 2 Ml) 4 mg IVP Q6H PRN PRN Reason: NAUSEA AND VOMITING Oxycodone HCl (Oxycodone 5 Mg Ir Tab/Cap) 5 mg PO Q6H PRN PRN Reason: Pain Last Admin: 09/19/22 17:35 Dose: 5 mg Oxycodone/Acetaminophen (Oxycodone-Apap 5-325 Mg Tablet) 1 tab PO Q6H PRN PRN Reason: MODERATE PAIN Last Admin: 09/21/22 05:19 Dose: 1 tab Ropinirole HCl (Ropinirole 0.25 Mg Tablet) 0.25 mg PO BEDTIME PRN PRN Reason: Restless Leg(S) Last Admin: 09/19/22 21:03 Dose: 0.25 mg Sevelamer Carbonate (Sevelamer 800 Mg Tablet) 4,000 mg PO TIDWM [facility] Last Admin: 09/20/22 17:59 Dose: 4,000 mg Sevelamer Carbonate (Sevelamer 800 Mg Tablet) 3,200 mg PO BID PRN PRN Reason: WITH SNACKS Sodium Thiosulfate (Sodium Thiosulfate 12.5 Gm/50 Ml Sdv) 1 gm IV TuThSa@0900 [facility] Trazodone HCl (Trazodone 50 Mg Tablet) 50 mg PO BEDTIME PRN PRN Reason: Sleep Last Admin: 09/19/22 21:03 Dose: 50 mg Vitamin D (Cholecalciferol (Vitamin D3) 1,000 Unit Tablet) [facility] [place] Last Admin: 09/21/22 05:19 Dose: 1,000 unit Vitals/I&O/Wt Last Vital Signs Temp 97.5 F L 09/21/22 04:40 Pulse 68 09/21/22 04:40 Resp 15 09/21/22 05:19 BP 111/75 09/21/22 04:40 Pulse Ox 92 09/21/22 04:40 O2 Del Method 09/20/22 20:00 O2 Flow Rate 2 09/20/22 20:00 09/20/22 09/20/22 09/21/22 14:59 22:59 06:59 Intake Total 1350 / 1350 540 / 1890 300 / 2190 Balance 1350 / 1350 540 / 1890 300 / 2190 Weight last 48 hrs Weight 129.909 kg Weight 127.414 kg Weight 122.1 kg Physical Exam Narrative: vs noted. bp improved anasarca, obesee in bed, NARD HEENT - nc/at, eomi, anicteric neck supple lungs crackles b/l heart reg abd soft, nt, nd, + bs ext LUE AVF, pr ER physician pt with large 5x5 full thickness lateral plantar ulcer/wound to left foot; drainage and foul smell present; significant swelling/edema to lower leg and foot neuro- a,a, o x 3, moves all extremities b/l edema Data 09/21/22 04:04 09/21/22 04:04 Micro: Microbiology 09/20/22 06:15 Blood Culture - Preliminary Blood NEGATIVE TO DATE 09/20/22 06:13 Blood Culture - Preliminary Blood NEGATIVE TO DATE A&P Assessment and plan (1) ESRD (end stage renal disease) on dialysis: 52 yr old man ESRD, cellulitis/ Q OM 1. ESRD- HD TTS as outpt -plan dialysis today or tomorrow based on surgery 2. OM vs cellulitis- per podiatry, for Left BKA today -on clinda and daptomycin 3. hypotension- check tsh. 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 DM care per medicine 6. anemia- iron sat 15%, ferritin 344 s/p 1 u prbc tx -consider iv iron -cont ALBERTO 7. replace vit d no need for alpha-d- 3 seen and examined w/ RN -telehealth visit Plan as above Attestations Medical Necessity Statement*: esrd, wound of foot, anemia Time Spent in Patient Care: 16 - 35 minutes (>than 50% of time spent in counselling and/or direct pt care on unit). Coding Level of Care Code Acute Code for Chg Fwd Diagnoses ESRD (end stage renal disease) on dialysis N18.6; Z99.2
[2022-09-21] MEDS: ergocalciferol (vitamin D2) 50,000 Unit Capsule 50000 UNIT PO (07:43)
[2022-09-21] MEDS: HYDROmorphone 1 mg/mL INJ 1 mL 0.4 MG IVP ×3 (09:26→22:54)
--- NOTE | 2022-09-21 09:29 | PM.PN ---
Subjective Subjective: Patient seen bedside this morning. He is scheduled for below-knee amputation left leg. Guarded as to soft tissue quality and is aware that above-knee amputation may be required. He is in good spirits. He also has a hemorrhagic callus on the right foot that historically has been a wound. This recently healed and was documented to be epithelialized and wound care his last visit 09/18/2022. Vitals/I&O/Wt Last Vital Signs Temp 98.3 F 09/21/22 07:48 Pulse 69 09/21/22 07:48 Resp 18 09/21/22 09:26 BP 116/56 09/21/22 07:48 Pulse Ox 94 09/21/22 07:48 O2 Del Method 09/21/22 07:48 O2 Flow Rate 2 09/20/22 20:00 09/20/22 09/21/22 09/21/22 22:59 06:59 14:59 Intake Total 540 / 1890 400 / 2290 Balance 540 / 1890 400 / 2290 Weight last 48 hrs Weight 286 lb 6.4 oz Weight 280 lb 14.4 oz Weight 269 lb 2.951 oz Physical Exam Narrative: GENERAL: Patient is alert and oriented ?3 and in no acute distress. The following is a focused bilateral lower extremity exam. VASCULAR: Dorsalis pedis palpable bilaterally posterior tibial arteries palpable. Capillary refill time less than 3 seconds to the distal hallux bilaterally. Calf is supple and nontender proximally and distally. Decreased pedal hair growth bilaterally. +2 pitting edema to the left lower extremity. +2 pitting edema to the right lower extremity. NEUROLOGICAL: Protective sensation intact 0/10 sites, tested with [place] monofilament to bilateral feet. DERMATOLOGICAL: Hyperkeratosis at the lateral right foot adjacent to the fifth metatarsal base with hemorrhaging. No underlying wound, no open wound to the right lower extremity appreciated. Full-thickness wound left lateral foot with exposed fifth metatarsal base and cuboid measures 5.2 cm x 5.5 cm x 1 cm with devitalized bone. Purulent drainage and malodor from the left lateral foot wound. Induration chronic skin pigmentation changes left lower extremity greater than right. MUSCULOSKELETAL: No pain to palpation secondary to neuropathy bilateral lower extremity. No pain with posterior calf squeeze. 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 Patient has a hemorrhagic callus at the right foot adjacent to the fifth metatarsal base. This was sharply pared with a dermal curette, no underlying wound was appreciated. No purulence and no erythema. We will apply twice daily moisturizer, covered with a island dressing. We will continue to monitor this during this hospitalization. As patient will be required to utilize his right foot more intensely for pivots and transfers this is an area of concern. Would like to be proactive in maintaining skin integrity and offloading appropriately and managing of calluses to reduce risk of wound formation. Will continue to follow for right foot during this hospitalization. 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
--- NOTE | 2022-09-21 09:49 | XRR_ITS ---
PROCEDURE INFORMATION: Exam: XR Left Tibia and Fibula Exam date and time: 09/21/2022 10:02 AM Age: 52 years old Clinical indication: Pain; Lower leg; Left; Additional info: Preop bka TECHNIQUE: Imaging protocol: Radiologic exam of the left tibia and fibula. Views: 2 views. COMPARISON: [place] [id number] 11/04/2021 8:50 AM FINDINGS: Bones/joints: Normal. Soft tissues: Normal. XR/XR tibia fibula LT 2V [id number] IMPRESSION: No acute findings.
--- NOTE | 2022-09-21 09:50 | ANES.PREANE2 ---
Pre-Anesthetic Assessment Height/Weight: Height 1.85 m Weight 129.909 kg Temp Pulse Resp BP Pulse Ox O2 Del Method O2 Flow Rate 98.3 F 69 18 116/56 94 2 09/21/22 07:48 09/21/22 07:48 09/21/22 09:26 09/21/22 07:48 09/21/22 07:48 09/21/22 07:48 09/20/22 20:00 Preop Diagnosis: Osteomyelitis left foot Operation Date: 09/19/22 12:10 Proposed Procedures p Incision And Drainage(Left) - Godwin Torres DPM Operation Date: 09/21/22 11:00 Proposed Procedures p Below Knee Amputation(Left) - Laureano Crane DO Familial anesthetic complications: None Was Beta Adalgisa taken within 24 hours: N/A Was Clonidine taken within 24 hours: N/A Last intake: > 8hrs Social No alcohol and No tobacco Exam alert, oriented x 3, clear to auscultation bilaterally and regular rate & rhythm Airway Mallampati: Class II Dentition: other (missing) Pulmonary Chronic Obstructive Pulmonary Disease CV/HEM Congestive Heart Failure and Hypertension Echo 21 CONCLUSIONS ?1.? This is a technically very difficult study. ?2.? Normal left ventricular cavity size and possibly normal ?systolic function. Left ventricular ejection fraction is ?estimated at 60 %. This study is inadequate for estimation of ?regional wall motion normality. Grade II diastolic dysfunction, ?moderately elevated filling pressures. ?3.? Moderate tricuspid valve regurgitation. ?4.? Repeat study with echo contrast is recommended. Chronic Renal Failure Metabolic Diabetes Mellitus Anesthetic Plan ASA status: 4 Anesthesia: General and Regional (specify below) Risk of > 500 ml blood loss (7ml/kg in children): No Medications/Allergies Home Medications Medication Instructions Recorded Confirmed Last Taken Type vit B,C-folic ac 800 mcg-zinc 12.5 1 tab PO QAM 04/25/21 09/18/22 09/18/22 History mg-selen-D3 2,000 unit-vit E tablet (RenaPlex-D) Wheel Chair #1 ea 08/18/21 09/18/22 09/12/22 Rx gabapentin 300 mg capsule 300 mg PO TID 08/22/21 09/18/22 09/18/22 08:00 History ropinirole 0.25 mg tablet 0.25 mg PO BEDTIME PRN Restless 08/22/21 09/18/22 09/12/22 History Leg(S) sodium zirconium cyclosilicate 5 See Rx Instructions .Route .COMPLEX 08/22/21 09/18/22 09/13/22 History gram oral powder packet (Lokelma) trazodone 50 mg tablet 50 mg PO BEDTIME PRN Sleep 08/22/21 09/18/22 09/12/22 History torsemide 100 mg tablet 100 mg PO BID 01/31/22 09/18/22 09/18/22 08:00 History cholecalciferol (vitamin D3) 25 25 mcg PO QAM 04/11/22 09/18/22 09/18/22 History mcg (1,000 unit) tablet (Vitamin D3) ondansetron HCl 4 mg tablet 4 mg PO Q8H PRN Nausea 04/11/22 09/18/22 09/12/22 History Compression Stockings #1 ea 04/12/22 09/18/22 09/12/22 Rx sodium thiosulfate 1 gram/10 mL 1 g IV .3X WEEK 06/06/22 09/18/22 09/12/22 History (100 mg/mL) intravenous solution lower elwha boot modification #1 ea 07/17/22 09/18/22 09/12/22 Rx cilostazol 50 mg tablet 50 mg PO BID 08/16/22 09/18/22 09/18/22 08:00 History oxycodone 5 mg tablet 5 mg PO Q6H PRN Pain 08/16/22 09/18/22 09/18/22 08:00 History daptomycin 500 mg intravenous 650 mg IV Q48H 09/18/22 09/18/22 09/17/22 History solution lidocaine-prilocaine 2.5 %-2.5 % See Rx Instructions .Route .COMPLEX 09/18/22 09/18/22 Unknown History topical cream multivitamin 1 tab PO QAM 09/18/22 09/18/22 09/18/22 History sevelamer carbonate 800 mg tablet See Rx Instructions .Route .COMPLEX 09/18/22 09/18/22 Unknown History Allergies Allergy/AdvReac Type Severity Reaction Status Date / Time linezolid [From Zyvox] Allergy tendonitis Verified 09/18/22 15:03 vancomycin Allergy Unknown Verified 09/18/22 15:03 ciprofloxacin [From Cipro] AdvReac Severe Tendonitis Verified 09/18/22 15:03 Current Medications Generic Name Dose Route Start Last Admin Trade Name Freq PRN Reason Stop Dose Admin Ergocalciferol 50,000 unit 09/21/22 08:00 09/21/22 07:43 Ergocalciferol (Vitamin D2) 50,000 Unit Capsule PO 50,000 unit Q7D [place] Administration Hydromorphone HCl 0.4 mg 09/19/22 13:14 09/21/22 09:26 Hydromorphone 1 Mg/Ml Inj 1 Ml IVP 0.4 mg Q4H PRN Administration severe pain Piperacillin Sod/Tazobactam 50 mls @ 12.5 mls/hr 09/18/22 22:00 09/21/22 06:36 Sod 3.375 gm/ Sodium Chloride IV 12.5 mls/hr Q8H [place] Administration Protocol Clindamycin HCl/Dextrose 600 mg in 50 mls @ 100 mls/hr 09/19/22 01:00 09/21/22 01:24 Cleocin IV Infused Q8H [place] Infusion Protocol Daptomycin 752 mg/ Sodium 100 mls @ 100 mls/hr 09/20/22 06:00 09/21/22 06:39 Chloride IV Infused Q24H [place] Infusion Protocol Albumin Human 25 g in 100 mls @ 60 mls/hr 09/20/22 14:00 09/21/22 06:58 Albumin IV Infused Q8H [place] Infusion Insulin Human Lispro 0 unit 09/18/22 20:55 09/21/22 07:39 Insulin Lispro 100 Unit/1 Ml SUBCUT Not Given TIDWM [facility] Protocol Midodrine 10 mg 09/20/22 05:35 09/20/22 21:31 Midodrine 5 Mg Tablet PO 10 mg TID [place] Administration Multivitamins 1 each 09/19/22 06:00 09/21/22 05:19 J-Cpktjmb-Kqanyrv C Tablet PO 1 each QAM [place] Administration Oxycodone HCl 5 mg 09/18/22 20:55 09/19/22 17:35 Oxycodone 5 Mg Ir Tab/Cap PO 5 mg Q6H PRN Administration Pain Oxycodone/Acetaminophen 1 tab 09/20/22 11:16 09/21/22 05:19 Oxycodone-Apap 5-325 Mg Tablet PO 1 tab Q6H PRN Administration MODERATE PAIN Ropinirole HCl 0.25 mg 09/18/22 20:55 09/19/22 21:03 Ropinirole 0.25 Mg Tablet PO 0.25 mg BEDTIME PRN Administration Restless Leg(S) Sevelamer Carbonate 4,000 mg 09/18/22 20:55 09/21/22 07:39 Sevelamer 800 Mg Tablet PO Not Given TIDWM [place] Trazodone HCl 50 mg 09/18/22 20:55 09/19/22 21:03 Trazodone 50 Mg Tablet PO 50 mg BEDTIME PRN Administration Sleep Additional Medication Information Current Medications Acetaminophen (Acetaminophen 500 Mg Tablet) 500 mg PO Q4H PRN PRN Reason: fever Albuterol Sulfate (Albuterol 2.5 Mg/3 Ml Neb) 2.5 mg INHALATION Q6H PRN PRN Reason: SHORTNESS OF BREATH Dextrose (Dextrose 50% Syringe 50 Ml) 25 ml IVP ONCE PRN; Protocol PRN Reason: hypoglycemia protocol Dextrose (Dextrose 50% Syringe 50 Ml) 50 ml IVP PRN PRN; Protocol PRN Reason: hypoglycemia protocol Glucagon (Glucagon 1 Mg/Ml Inj 1 Ml) 1 mg IM ONCE PRN; Protocol PRN Reason: Adult Acute Hypoglycemia Prot. Hydromorphone HCl (Hydromorphone 1 Mg/Ml Inj 1 Ml) 0.4 mg IVP Q4H PRN PRN Reason: severe pain Last Admin: 09/20/22 22:42 Dose: 0.4 mg Dextrose (D5w) 500 mls @ 100 mls/hr IV ONCE PRN; Protocol PRN Reason: Adult Acute Hypoglycemia Prot Piperacillin Sod/Tazobactam (Sod 3.375 gm/ Sodium Chloride) 50 mls @ 12.5 mls/hr IV Q8H [place]; Protocol Last Admin: 09/21/22 06:36 Dose: 12.5 mls/hr Clindamycin HCl/Dextrose (Cleocin) 600 mg in 50 mls @ 100 mls/hr IV Q8H [place]; Protocol Last Infusion: 09/21/22 01:24 Dose: Infused Albumin Human (Albumin) 12.5 gm in 50 mls @ 60 mls/hr IV PRN PRN PRN Reason: Hypotension and/or symptomatic Norepinephrine Bitartrate 4 mg (/ Dextrose) 254 mls @ 0 mls/hr IV .Q0M [facility]; Protocol Daptomycin 752 mg/ Sodium (Chloride) 100 mls @ 100 mls/hr IV Q24H [facility]; Protocol Last Infusion: 09/21/22 06:39 Dose: Infused Albumin Human (Albumin) 25 g in 100 mls @ 60 mls/hr IV Q8H [facility] Last Admin: 09/21/22 05:17 Dose: 60 mls/hr Insulin Human Lispro (Insulin Lispro 100 Unit/1 Ml) 0 unit SUBCUT TIDWM [facility]; Protocol Last Admin: 09/20/22 17:56 Dose: Not Given Ipratropium [place] (Ipratropium 0.5 Mg/2.5 Ml Neb) 0.5 mg INHALATION Q6H PRN PRN Reason: SHORTNESS OF BREATH Midodrine (Midodrine 5 Mg Tablet) 10 mg PO TID [facility] Last Admin: 09/20/22 21:31 Dose: 10 mg Multivitamins (C-Qgwstja-Rkpretz C Tablet) 1 each PO QAM [facility] Last Admin: 09/21/22 05:19 Dose: 1 each Ondansetron HCl (Ondansetron 2 Mg/Ml Sdv 2 Ml) 4 mg IVP Q6H PRN PRN Reason: NAUSEA AND VOMITING Oxycodone HCl (Oxycodone 5 Mg Ir Tab/Cap) 5 mg PO Q6H PRN PRN Reason: Pain Last Admin: 09/19/22 17:35 Dose: 5 mg Oxycodone/Acetaminophen (Oxycodone-Apap 5-325 Mg Tablet) 1 tab PO Q6H PRN PRN Reason: MODERATE PAIN Last Admin: 09/21/22 05:19 Dose: 1 tab Ropinirole HCl (Ropinirole 0.25 Mg Tablet) 0.25 mg PO BEDTIME PRN PRN Reason: Restless Leg(S) Last Admin: 09/19/22 21:03 Dose: 0.25 mg Sevelamer Carbonate (Sevelamer 800 Mg Tablet) 4,000 mg PO TIDWM [facility] Last Admin: 09/20/22 17:59 Dose: 4,000 mg Sevelamer Carbonate (Sevelamer 800 Mg Tablet) 3,200 mg PO BID PRN PRN Reason: WITH SNACKS Sodium Thiosulfate (Sodium Thiosulfate 12.5 Gm/50 Ml Sdv) 1 gm IV TuThSa@0900 [facility] Trazodone HCl (Trazodone 50 Mg Tablet) 50 mg PO BEDTIME PRN PRN Reason: Sleep Last Admin: 09/19/22 21:03 Dose: 50 mg Vitamin D (Cholecalciferol (Vitamin D3) 1,000 Unit Tablet) 1,000 unit PO QAM [facility] Last Admin: 09/21/22 05:19 Dose: 1,000 unit [facility] Anesthesia Medical History Anemia BMI 50.0-59.9, adult Cardiac arrest (~07/2020) when had covid Cellulitis CHF (congestive heart failure), NYHA class III Chronic respiratory failure with hypoxia and hypercapnia Chronic ulcer of left foot with fat layer exposed Chronic venous insufficiency COPD (chronic obstructive pulmonary disease) Diabetes Diabetic foot ulcers ESRD (end stage renal disease) on dialysis First degree heart block Fracture of fifth metatarsal bone of left foot Fracture of fourth metatarsal bone of left foot Fracture, thoracic vertebra T7-T8 History of renal cell carcinoma Hypertension Lung nodule Morbid obesity with BMI of 40.0-44.9, adult Neuropathy Non-healing ulcer of right foot with fat layer exposed Non-pressure chronic ulcer of other 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 No recurrence for long-term follow-up with some suspicion on CT scan April 2020. Restrictive lung disease Type 2 diabetes mellitus with diabetic polyneuropathy Urinary retention Surgical History H/O partial nephrectomy bilateral H/O wisdom tooth extraction History of cataract surgery Hx of lymph node excision Family History Father , at age 65 Diabetes Cancer Metastatic prostate cancer to liver Mother , at age 72 Diabetes Grandfather Diabetes Cancer Other Anemia Hyperlipidemia Social History Smoking and tobacco status: never smoked Second hand smoke exposure: Yes Smoking risk assessment/counseling performed?: Yes Alcohol intake: current Alcohol intake frequency: holidays/special occasions only Lives independently: Yes Household members: spouse Housing: House Marital status: service: No Current occupational status: retired Pets and animals: Yes Current gender identity: Male Data Anesthesia 09/21/22 04:04 09/21/22 04:04 Short CBC 09/20/22 09/20/22 09/21/22 Range/Units 04:50 23:40 04:04 WBC 11.6 H 6.5 (4.0-10.0) 10^3/uL Hgb 7.5 L 7.6 L 8.2 L (11.7-16.6) g/dL Hct 25.5 L 26.2 L 27.7 L (42.0-52.0) % MCV 84.4 85.8 (80-94) fl Plt Count 203 213 (130-400) 10^3/cmm Neut % (Auto) 85.7 63.5 % Neut # (Auto) 9.90 H 4.10 (1.8-7.7) 10^3/uL BMP 09/20/22 09/21/22 04:50 04:04 Sodium 139 140 Potassium 4.3 4.5 Chloride 96 L 95 L Carbon Dioxide 27 27 BUN 30 H 37 H Creatinine 4.3 H 5.5 H Glucose 175 H 122 H Calcium 7.9 L 8.2 L Liver Function 09/21/22 Range/Units 04:04 Total Bilirubin 0.9 (0.15-1.2) mg/dL AST 10 (0-40) U/L ALT < 5 (0-41) U/L Alkaline Phosphatase 126 (40-130) U/L Albumin 2.9 L (3.5-5.2) g/dL Blood Bank 09/20/22 06:07 Blood Type A Positive Rho(D) Type Positive Antibody Screen Negative Microbiology 09/20/22 06:15 Blood Culture - Preliminary Blood NEGATIVE TO DATE 09/20/22 06:13 Blood Culture - Preliminary Blood NEGATIVE TO DATE Cardiac Studies: Echocardiogram 11/13/20 Echocardiogram Limited Views 07/24/21 Echocardiogram Ultrasound 11/12/20 Sestamibi Stress Test (Cardiology) 08/14/19
[2022-09-21] MEDS: midodrine 5 mg TABLET 10 MG PO ×2 (09:51→20:30)
--- NOTE | 2022-09-21 10:05 | PM.PN ---
Subjective Subjective: This morning patient is prepared for the surgery We had a long discussion regarding inpatient rehab after his surgery [facility] is [facility] [place] Other option would be home health services from the hospital at the bedside Patient is stating that he will make decision for himself not his family or his Vitals/I&O/Wt Last Vital Signs Temp 98.3 F 09/21/22 07:48 Pulse 69 09/21/22 07:48 Resp 18 09/21/22 09:26 BP 116/56 09/21/22 07:48 Pulse Ox 94 09/21/22 07:48 O2 Del Method 09/21/22 07:48 O2 Flow Rate 2 09/20/22 20:00 09/20/22 09/21/22 09/21/22 22:59 06:59 14:59 Intake Total 540 / 1890 400 / 2290 Balance 540 / 1890 400 / 2290 Weight last 48 hrs Weight 129.909 kg Weight 127.414 kg Weight 122.1 kg Physical Exam Narrative: Laying flat Blood pressure stable Distended abdomen Ascites Lower extremity venous stasis dermatitis Foot ulcer, left foot covered with dressing Right foot callus covered in dressing as well No active pain Stage I sacral ulcer S1, S2 Currently on room air No audible stridor or wheezing GCS 15 Nonfocal neuro Data 09/21/22 04:04 09/21/22 04:04 Micro: Microbiology 09/20/22 06:15 Blood Culture - Preliminary Blood NEGATIVE TO DATE 09/20/22 06:13 Blood Culture - Preliminary Blood NEGATIVE TO DATE A&P Assessment and plan (1) Ulcer of sacral region, stage 1: (2) Gas gangrene: (3) Acquired equinovarus deformity of left foot: (4) Pre-ulcerative calluses: (5) Xerosis of skin: (6) Type 2 diabetes mellitus with diabetic polyneuropathy: Qualifiers: 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 Crane is on board Appreciate Dr. Torres's recommendation He will be managing his right foot wounds throughout hospitalization because now he will be using his right foot intensely Afebrile No signs of sepsis Low blood pressure related to low albumin poor nutrition Severe protein calorie malnourishment We will consult dietitian after surgery He has received albumin and 1 unit of RBC Anemia of chronic disease: Status post 1 unit PRBC Hypertension: Improved with albumin and PRBC and small bolus of fluid End-stage renal disease [facility] dialysis after surgery later today versus tomorrow morning P.o. versus IV iron He will get consistent carb renal diet after surgery Chronic hypoxia without acute worsening currently doing well on room air Stage I sacral ulcer, offloading Full code N.p.o. 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
--- NOTE | 2022-09-21 10:26 | PC.SOCIAL ---
Imm update Imm updated with patient at bedside. Copy of page 2 provided. Patient verbalized understanding. Copy in chart initialed, dated and timed.
--- NOTE | 2022-09-21 10:37 | SUR.PREOP ---
Time out was completed at bedside in OPS for a nerve block. Block was aborted as tissue was not allowing view of nerve tissue.
[2022-09-21] MEDS: sodium chloride 0.9% 1,000 ML 30 ML IV (10:52)
--- NOTE | 2022-09-21 11:06 | SUR.PREOP ---
Patient's O2 is staying in the upper 80's to low 90's. Patient stated that was normal for him. Nasal cannula was placed on 1 liter to try to maintain O2 level above 91%
--- NOTE | 2022-09-21 11:55 | P.MISC_ITS ---
Miscellaneous Note Note: Popliteal and Adductor blocks abandoned. Both areas present with signifcant soft tissue swelling such that no or hardly any landmarks/nerve tissue could be identified. Attempts to place the needle in the popliteal area for potential nerve stimulator usage at area of possible pop/tibial nerves en countered tissues so thick it was felt as if the needle were moving through modeling joelle. As such as redirection of the needle was not possible unless needle was retracted almost all the way to surface tissue.
--- NOTE | 2022-09-21 12:05 | PM.PN ---
Subjective Subjective: Patient seen and evaluated this morning. All questions answered. Has been n.p.o. since midnight and plan for surgery for a left below the knee amputation stump today. All questions answered patient agreeable to proceed with surgery. Vitals/I&O/Wt Last Vital Signs Temp 97.8 F 09/21/22 10:26 Pulse 73 09/21/22 10:26 Resp 18 09/21/22 10:26 BP 135/69 09/21/22 10:26 Pulse Ox 94 09/21/22 10:26 O2 Del Method 09/21/22 10:26 O2 Flow Rate 2 09/20/22 20:00 09/20/22 09/21/22 09/21/22 22:59 06:59 14:59 Intake Total 540 / 1890 400 / 2290 Balance 540 / 1890 400 / 2290 Weight last 48 hrs Weight 286 lb 6.4 oz Weight 280 lb 14.4 oz Weight 269 lb 2.951 oz Physical Exam Narrative: Dressings on the left lower extremity particularly the left foot. Noticeable peripheral vascular disease and vascular insufficiency changes to the skin of the left lower extremity. Mild edema noted. No significant proximal tracking erythema beyond the foot. Erythema around the foot with noticeable swelling around the dressing. No bullae noted. Patient is comfortable. Diffuse decrease sensation left lower extremity with diabetic neuropathy. Distal pulses are palpable. Data 09/21/22 04:04 09/21/22 04:04 Micro: Microbiology 09/20/22 06:15 Blood Culture - Preliminary Blood NEGATIVE TO DATE 09/20/22 06:13 Blood Culture - Preliminary Blood NEGATIVE TO DATE Xray Ortho: My impression: X-ray of the tib-fib of the left lower extremity demonstrates no acute fracture dislocation no hardware present. A&P Assessment and plan (1) Foot osteomyelitis, left: Plan N.p.o. since midnight Plan to proceed with left below the knee amputation today. Attestations Medical Necessity Statement*: Left foot osteomyelitis ongoing care with plan for left below the knee amputation Coding Level of Care Code Acute Code for Chg Fwd Diagnoses Foot osteomyelitis, left M86.9 Time Spent (min) 20
--- NOTE | 2022-09-21 12:06 | W.PM.OPSUD ---
Surgery/Procedure H&P Update DATE OF PROCEDURE: September 21, 2022 DATE H&P PERFORMED: 09/20/22 CHANGES TO PREVIOUS DOCUMENTATION: None. Had a long thoughtful discussion with patient about progressing forward. I do feel as though given his soft tissue envelope that he does have high risk of wound complications of the left below the knee amputation stump however at this point he is adamant he would like to salvage as much as possible. I have talked about this in great detail with patient as well as with the medical team and at this point time per patient's wishes feel appropriate to help decrease his infectious load removing of the left foot osteomyelitis and progressing forward with a left below the knee amputation. He understands the risk benefits complication alternatives to surgical and nonsurgical treatment options. Understanding his risks with surgery he elects to proceed. All questions answered. PREOP DIAGNOSIS: Osteomyelitis left foot PRIMARY INDICATION FOR PROCEDURE: Left foot osteomyelitis and chronic wound PLANNED PROCEDURE: Operation Date: 09/19/22 12:10 Proposed Procedures p Incision And Drainage(Left) - Godwin Torres DPM Operation Date: 09/21/22 11:00 Proposed Procedures p Below Knee Amputation(Left) - Laureano Crane DO
--- NOTE | 2022-09-21 14:27 | PM.OP2 ---
Brief Operative Note Date of procedure: 09/21/22 Pre-op diagnosis: Chronic left foot wound with osteomyelitis Post-op diagnosis: same Procedure Done: Left below the knee amputation Surgeon: Laureano Crane Estimated blood loss (mL): 325 Complications: None Patient had slightly soft blood pressures Intra-Op. We will continue to monitor postoperatively. 2 units of PRBC is on hold and ready to give postoperatively. We will start with 1 unit PRBC in PACU as he did already start with a low hemoglobin of 8.2 in preop. We will continue to monitor postoperatively. Post-op Plan: Patient taken to PACU in stable condition. Slightly soft blood pressures. Will start on 1 unit PRBC in PACU. Patient extubated and recovering. Return to the floor. Postoperative antibiotics. Nonweightbearing left BKA stump. Internal medicine on board as primary. PT/OT. updated postoperatively. Orthopedics will continue to follow postoperatively. Condition: stable Disposition: floor Coding Level of Care Code Acute Code for Patricia Reid
--- NOTE | 2022-09-21 14:32 | PM.PACU ---
PACU note Narrative: Patient taken to PACU in stable condition. Slight soft blood pressures received 1 unit PRBC in PACU. Dressing on in place clean dry and intact. Exam: somnolent, arousable Disposition: back to floor
--- NOTE | 2022-09-21 14:33 | P.OP_ITS ---
Operative Report Date of procedure: September 21, 2022 Pre-op diagnosis: Preop Diagnosis Osteomyelitis left foot Post-op diagnosis: Same Procedure done: Left below the knee amputation Specimens removed/disposition: Left lower extremity amputation removed Surgeon: Laureano Crane DO Estimated blood loss: 325 mL 22 minutes IV fluids: See anesthesia record Urine output: See anesthesia record Complications: None. Condition: stable (Soft pressures and receiving 1 unit PRBC in PACU) Disposition: ICU Brief History: Patient is a 52-year-old male with significant medical comorbidities he has had chronic wound and subsequent osteo and infection of the left foot. He has been seen and worked up by wound care and this has been managed for several years. He is a diabetic he has end-stage renal disease on dialysis. He has calciphylaxis. Ultimately he is been trying to ruiz off any type of amputation however during this hospitalization he has come to that realization that his next best step of reading this osteomyelitis of his left foot would be an a mputation. The podiatry as well as wound care/primary team as consulted me for performing a left below the knee amputation. I saw and evaluated the patient on the floor and we had a detailed discussion about his treatment options. Looking at his soft tissue envelope I do harbor his expectations of him healing a below the knee amputation given he has significant chronic edema and peripheral vasc ular vascular insufficiency skin changes with thickened velvety fibrotic skin. I worry about the wound healing integrity and I did talk about this with our consumer education specialist who is cardiothoracic/vascular surgery in our institution at this point time with a team approach and through shared patient decision making he would like to obtain as much of his lower limb as possible and would like me to proceed with a left below the knee amputation stump understanding his risk benefits complication alternatives to surgical nonsurgical treatment options. He understands risk of surgery and agrees to proceed with left below the knee amputation stump. All questions answered at this time. Procedure: Patient was seen and evaluated in the preoperative holding area. Patient has been as medically optimized as possible and received a unit PRBC yesterday and hemoglobin was 8.2 prior to surgery today. At this point time consent was reviewed and signed with patient correct extremity marked. All questions were answered. Seen evaluated by anesthesia once cleared for surgery was taken back to the operative suite. He was placed in supine position. All bony prominences well-padded patient was properly secured to the bed. Underwent anesthesia per the anesthesia department once appropriately anesthetized the left lower extremity had a nonsterile tourniquet applied to the left thigh. Then the left lower extremity was then prepped and draped in standard orthopedic fashion. Patient has been receiving IV antibiotics through his PICC line on the floor and just did recently receive this. At this point time a final timeout was performed. Esmarch tourniquet was used to exsanguinate the left lower extremity and tourniquet was insufflated to 300 mmHg. I then marked out my amputations site. Plan was for a fishmouth incision as he had a small area on the proximal tibia that did not have scaly thickened skin and this appeared to be his best scan of the pretibial region I will selected given the long posterior flap did not have a good soft tissue envelope posteriorly. As result proceeded with a fishmouth incision this had made just a 5 fingerbreadths below the joint line in the area of the most possible minimal soft tissue envelope for skin closure. Standard fishmouth incision was made with sharp scalpel incision through the skin and the skin was extremely thick dense and very minimal in its mobility is very fibrotic. I then noticed significant edematous fluid throughout the incision site I switched to electrocautery and dissected the rest of the incision with electrocautery maintaining as much hemostasis as possible. Patient did have significant calcified veins and arteries throughout my dissection. Immediately on enc ountering patient's compartment musculature of the anterior lateral posterior superficial and deep compartments the musculature was very pink and pastrana in nature there was some slight contractility but overall this did not have a very healthy appearing or normal appearing muscle belly there was no mehran purulence or infection source but this did appear to be chronic only edematous and fibrotic with minimal muscle tone. Standard fishmouth incision and dissection was made dissecting first through the anterior and lateral compartments identifying appropriate neurovascular bundles and placing hemostats on these the clamp for later tying off. Once this was done I carried my incision medially and the saphenous vein was tied off. Care was to make sure I had an appropriate anterior flap for closure with my posterior flap. I then identifying the tibia and the fibula utilized a Briseno elevator and elevated the soft tissue envelope. I then mobilized underneath the tibia and placed a soft tissue neurovascular protector under this for my cell resection. Next an oscillating saw was used and roughly 2 fingerbreadths above my skin incision I performed my tibial resection this was made appropriately and protecting all soft tissue and vascular structures. Next I then placed a [employer] [place] and soft tissue protector around the fibula and made a fibular cut just slightly 1 to 2 cm proximal to my tibia resection. This was performed inside the ankle all sharp edges were appropriately contoured at this point in time I then utilized an amputation knife to resect along the posterior edge of the tibia and fibula and completed my amputation site of the soft tissue with care to keep my posterior flap intact. This was then amputated stump placed into a biohazard bag and removed. At this point time I identified the posterior neurovascular structures which were then isolated with the Metzenbaum and tied off with silk ties. The rest of the neurovascular structures were tied with silk ties as well. Once this was done I then utilized Metzenbaum scissors to debulk the posterior flap musculature for appropriate soft tissue closure we will with no tension. Next identified the nerve including the peroneal tibial and sural nerve which were then held under traction injected with lidocaine and traction neurectomy was performed and this retracted proximally within the stump. At this point I then let the tourniquet down and hemostasis was noted to be satisfactory. Throughout the case was noted his arterials were severely calcified with no ability of vasoconstriction and also appeared to have a venous tourniquet. Was tourniquet was let down patient's blood loss did appear to be improved. At this point time hemostasis was satisfactory after tying off all vessels and stick tying any sm aller vessels. Neurectomies of been performed at this point in time I then thoroughly irrigated the wound bed. Once this was done and made sure all of the excessive amounts of muscle mass was debulked to allow for appropriate not tension closure once I was satisfied with this I then selected to use #1 PDS suture for reapproximation of the posterior fascia to the anterior fascia to pad the distal bony stump. Once this was reapproximated I then utilized a running #1 strata fix suture to seal up the fascial layer and then subsequently a 2 oh strata fix for closing the deep and subcutaneous layer. This allowed no tension on my closure and I reapproximated the skin edges with мария. Stump was then dressed with Xeroform 4 x 4's ABD Curlex and a double 6 inch Mikhail wrap. Patient was then awakened from anesthesia and taken to PACU in stable condition. He did have slight soft pressures and was receiving albumin. Given his blood loss he had been typed and screened and will receive 1 unit PRBC in PACU as he already was starting preoperatively with a lower hemoglobin. We will continue to monitor patient contacted internal medicine who will have patient go to the ICU for monitoring overnight. Patient will be nonweightbearing to the stump. Disposition: Patient taken to PACU stable but does have some slight soft blood pressures and received 1 unit PRBC. Spoke with internal medicine will go to the ICU for monitoring. Dressing on in place clean dry and intact we will continue with IV antibiotics postoperatively. Orthopedics will continue to monitor.
[2022-09-21] MEDS: fentaNYL 50 mcg/mL INJ 2mL IVP ×3 (14:40→20:28)
[2022-09-21] MEDS: HYDROmorphone 1 mg/mL INJ 1 mL 0.5 MG IVP (15:00)
[2022-09-21] MEDS: midazolam 1 mg/mL INJ 2 mL 2 MG IVP (15:05)
--- NOTE | 2022-09-21 15:57 | PC.NURSE ---
Pt taken to ICU at approx 1545, bedside and phone report given to Jj SCHERER. pt started on blood infusion at 1441. pt pain controlled while in the PACU with suing dilaudid, fentanyl, and versed.
--- NOTE | 2022-09-21 16:12 | PC.NURSE ---
Arrived from PACU on simple mask @ 8L. Blood running at 200 ml/hr. VS on TAR not charted from 1450 PACU contacted
--- NOTE | 2022-09-21 16:24 | PC.NURSE ---
time on vitals charted in TAR for two sets of 15 min vitals are timed wrong and time could not be changed should NOT be 1616
[2022-09-21] MEDS: albumin 12.5 GM/250 ML VIAL IV (17:25)
[2022-09-21 17:36] LABS: Glucose Point of Care 102 mg/dL (70-110)
--- NOTE | 2022-09-21 18:08 | PC.NURSE ---
this nurse clarified 2nd unit of blood with Dr. Johansen, this nurse was advised to keep unit in blood bank at this time
[2022-09-21] MEDS: oxyCODONE 5 mg IR Tab/Cap PO (20:26)
[2022-09-22] VITALS (32 sets, daily range): BP systolic 93–137; BP diastolic 52–84; PULSE 84–109; RESP 7–30; TEMP 36.6–37.3; O2SAT 89–100
[2022-09-22] MEDS: clindamycin 600 MG/50 ML PREMIX 100 MG IV ×3 (01:26→18:22)
[2022-09-22 03:01] LABS: Basophils # 0.1 10^3/uL (0.0-0.1); Basophils % 1.3 %; Eosinophils # 0.4 10^3/uL (0.0-0.8); Eosinophils % 5.8 %; Hematocrit 24.8 % (42.0-52.0); Hemoglobin 7.3 g/dL (11.7-16.6); Lymphocytes # 0.8 10^3/uL (0.8-4.8); Lymphocytes % 11.1 %; Mean Corpuscular HGB Conc 29.4 g/dL (30.0-36.0); Mean Corpuscular Hemoglobin 25.4 pg (28.0-34.0); Mean Corpuscular Volume 86.4 fl (80-94); Mean Platelet Volume 10.6 fL (7.4-10.4); Monocytes # 0.8 10^3/uL (0.2-0.9); Neutrophils % 69.4 %; Nucleated Red Blood Cells % 0 %; Platelet Count 193 10^3/cmm (130-400); Red Blood Count 2.87 10^6/uL (4.1-5.3); Red Cell Distribution Width 17.5 % (12.1-15.1); White Blood Count 6.8 10^3/uL (4.0-10.0)
[2022-09-22 03:22] LABS: Alanine Aminotransferase 7 U/L (0-41); Albumin Level 3.1 g/dL (3.5-5.2); Alkaline Phosphatase 92 U/L (40-130); Anion Gap 23.4 (5-19); Aspartate Amino Transferase 16 U/L (0-40); Blood Urea Nitrogen 43 mg/dL (6-20); Carbon Dioxide 24 mmol/L (22-29); Chloride 96 mmol/L (98-107); Globulin 3.5 g/dL (1.3-4.6); Glucose 102 mg/dL (65-115); Magnesium 2.2 mg/dL (1.7-2.3); Osmolality Calculated 297 mOsm/kg (285-295); Potassium 5.4 mmol/L (3.5-5.1); Sodium 138 mmol/L (136-145); Total Bilirubin 0.9 mg/dL (0.15-1.2); Total Protein 6.6 g/dL (6.6-8.7)
[2022-09-22] MEDS: HYDROmorphone 1 mg/mL INJ 1 mL 0.4 MG IVP ×3 (04:27→20:03)
[2022-09-22] MEDS: b-complex-vitamin c Tablet 1 EACH PO (05:53)
[2022-09-22] MEDS: piperacillin-tazobactam 3.375 GM in sodium chloride 0.9% (plus) 50 ML IV ×3 (05:53→23:13)
--- NOTE | 2022-09-22 05:55 | ANE.PACU2 ---
Inpatient post-anesthesia follow up: Airway intact: Yes Vital signs: Temperature 97.4 F Pulse Rate 88 Respiratory Rate 14 Blood Pressure 143/112 Pulse Oximetry 95 Oxygen Delivery Me thod Simple Mask Oxygen Flow Rate 3 Fraction of Inspir ed Oxygen Hydration adequate: Yes Nausea and vomiting: No Pain level: 6 Mental status: Baseline
--- NOTE | 2022-09-22 07:34 | P.PN_ITS ---
Subjective Subjective: post op day 1 left BKA s/p 1 unit prbc Hg around 7.3 Second unit of PRBC with HD today BP improved High Phos High K noted 5.4 Vitals/I&O/Wt Last Vital Signs Temp 98.4 F 09/22/22 06:50 Pulse 91 09/22/22 06:50 Resp 16 09/22/22 06:50 BP 108/60 09/22/22 06:50 Pulse Ox 95 09/22/22 04:27 O2 Del Method 09/21/22 15:45 O2 Flow Rate 3 09/21/22 19:54 09/21/22 09/22/22 09/22/22 22:59 06:59 14:59 Intake Total 560 / 1110 225 / 1335 Output Total 0 / 325 Balance 560 / 785 225 / 1010 Weight last 48 hrs Weight 124.035 kg Weight 129.909 kg Physical Exam Narrative: Left BKA dressing in place No active bleeding AOx3 GCS 15 Ascites with non tender abdomen callus right foot with dressing S1S2 no audible stridor or wheezing Data 09/22/22 02:15 09/22/22 02:15 Micro: Microbiology 09/20/22 06:15 Blood Culture - Preliminary Blood NEGATIVE TO DATE 09/20/22 06:13 Blood Culture - Preliminary Blood NEGATIVE TO DATE A&P Assessment and plan (1) Ulcer of sacral region, stage 1: (2) Gas gangrene: (3) Acquired equinovarus deformity of left foot: (4) Pre-ulcerative calluses: (5) Xerosis of skin: (6) Type 2 diabetes mellitus with diabetic polyneuropathy: Qualifiers: Diabetes mellitus fdc insulin use: 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 Qualified Code(s): E11.42 - Type 2 diabetes mellitus with diabetic polyneuropathy (7) ESRD (end stage renal disease) on dialysis: (8) History of left below knee amputation: Plan Postop day 1 Postoperative anemia noted Status post 1 unit PRBC He will get second unit with dialysis today Hemodynamically stable Going for dialysis Ens stage renal disease dialysis today Hyperkalemia hyperphosphatemia noted Acute on chronic anemia Related to chronic kidney disease and intraoperative bleeding due to calcified vessels We will give him IV iron as well we will touch this with nephro Depending on PT evaluation we will decide further regarding his disposition, patient is interested in going to [facility] inpatient rehab furniture manager is aware If his blood pressure stays stable he might be able to come out of ICU today Anasarca related to muscle mass loss, low BUN and NSAID renal disease He gets paracentesis every other week He has been getting albumin so far #Abdominal pain Patient is stating he will make decision for himself daughter and should not be involved for now Full code Renal diet Right foot callus follow-up with Dr. 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
--- NOTE | 2022-09-22 08:16 | P.PN_ITS ---
Subjective Subjective: Patient seen and evaluated in the ICU today. Patient receiving hemodialysis and 1 unit PRBC his hemoglobin 7.3 this AM. Spoke with internal medicine is managing patient's transfusion. Patient complaining of pain at surgical site today. Patient received appropriate pain medication which she sta joss does help. Dressing on in place clean dry and intact. Vitals/I&O/Wt Last Vital Signs Temp 98.4 F 09/22/22 06:50 Pulse 91 09/22/22 06:50 Resp 16 09/22/22 06:50 BP 108/60 09/22/22 06:50 Pulse Ox 95 09/22/22 04:27 O2 Del Method 09/21/22 15:45 O2 Flow Rate 3 09/21/22 19:54 09/21/22 09/22/22 09/22/22 22:59 06:59 14:59 Intake Total 560 / 1110 225 / 1335 Output Total 0 / 325 Balance 560 / 785 225 / 1010 Weight last 48 hrs Weight 273 lb 7.2 oz Weight 286 lb 6.4 oz Physical Exam Narrative: Dressing left BKA stump is clean dry and intact. Patient endorses sensation intact to light touch to the stump. Patient is able to flex and extend at the knee. Data 09/22/22 02:15 09/22/22 02:15 Micro: Microbiology 09/20/22 06:15 Blood Culture - Preliminary Blood NEGATIVE TO DATE 09/20/22 06:13 Blood Culture - Preliminary Blood NEGATIVE TO DATE A&P Assessment and plan (1) Status post below-knee amputation of left lower extremity: Plan Nonweightbearing left BKA stump PT/OT Dialysis today?nephrology on board Internal medicine on board for medical management 1 unit PRBC today Dressing clean dry and intact May reinforce dressing if becomes saturated Pain control Antibiotics Orthopedics will continue to monitor Attestations Medical Necessity Statement*: Ongoing care for left foot osteomyelitis and is currently status post left below the knee amputation Coding Level of Care Code Acute Code for Chg Fwd Diagnoses Status post below-knee amputation of left lower extremity Z89.512 Time Spent (min) 35
[2022-09-22] MEDS: sodium chloride 0.9% 100 mL Bag 50 ML IV (08:22)
[2022-09-22] MEDS: oxyCODONE 5 mg IR Tab/Cap PO ×2 (08:28→18:16)
[2022-09-22] MEDS: albumin 25 G/100 ML BAG 60 G IV ×3 (08:35→23:14)
--- NOTE | 2022-09-22 08:46 | PC.NURSE ---
PRBC infusing with dialysis.
[2022-09-22 08:49] LABS: Glucose Point of Care 91 mg/dL (70-110)
[2022-09-22] MEDS: LORazepam 2 mg/mL INJ 1 mL 0.5 MG IVP (09:32)
--- NOTE | 2022-09-22 09:59 | PC.CHAP ---
Pastoral Care Encounter/Spiritual Assessment Type of Contact [] Declined outside machinist helper visit [] Patient/Family/Request visit [] Outpatient visit [] Follow-up visit [] Physician referral [] Code/Alert [x] Routine visit [] Staff referral [] Actively dying [] Patient sleeping [] Family support [] [] Out of room [] Palliative care [] [] Receiving care in room [] Pre-surgical visit [] Trauma [] Long length of stay [x] ICU visit [x] Other: dialyses Relational/Emotional Strength [] Patient feels connected with others/family/visitors/staff [] Distress [] Loneliness/isolation [] Abandonment Spirituality of Patient [] Person of Lizabeth [] Attends Gnosticism of their Lizabeth [] Believes in Prayer [] Reads Bible or Christian materials [] There are Spiritual issues to be addressed Paving Machine Operator Interventions [x] Prayer [] Active listening [] Non-anxious presence [] Spiritual/emotional support [] Crisis/trauma care [] Spiritual counseling [] Bereavement support [] Provided bereavement packet [] Provided Bible/devotional materials [] Provided toy/stuffed animal, coloring book to patient or family member [] Provided Communion [] Anointing/[place] [] Salvation [x] Completed spiritual assessment [] Other: Impact on Illness or Injury [] Angry [] Fearful [] Anxious [] Often cries [] Exhaustion [] Unable to work [] Unable to attend faith [] Unable to walk/stand [] Unable to read [] Unable to drive [] Unable to eat/drink [] Unable to sleep [] Unable to be with family [] Patient intubated [] Other: Summary Time spent with patient
--- NOTE | 2022-09-22 10:53 | PC.NURSE ---
PRBC finished infusing. Anxiety relived with Ativan. No further reactions noted. Pt afebrile with temp of 98.5F. No further action required.
[2022-09-22] MEDS: bacitracin ointment Pkt 1 EACH TOPICAL ×2 (11:33→18:23)
[2022-09-22] MEDS: sevelamer 800 mg Tablet 4000 MG PO ×2 (11:37→18:16)
[2022-09-22 11:48] LABS: Glucose Point of Care 99 mg/dL (70-110)
[2022-09-22] MEDS: oxyCODONE-APAP 5-325 mg Tablet 1 TAB PO ×2 (11:54→23:15)
--- NOTE | 2022-09-22 13:58 | PM.PN ---
Subjective Subjective: s/p HD today Medications: Reviewed: Yes Vitals/I&O/Wt Last Vital Signs Temp 98.4 F 09/22/22 10:58 Pulse 94 09/22/22 10:58 Resp 22 H 09/22/22 11:54 BP 133/83 09/22/22 10:58 Pulse Ox 96 09/22/22 11:54 O2 Del Method 09/22/22 09:01 O2 Flow Rate 2 09/22/22 09:01 09/21/22 09/22/22 09/22/22 22:59 06:59 14:59 Intake Total 560 / 1110 225 / 1335 1300 / 1300 Output Total 0 / 325 2500 / 2500 Balance 560 / 785 225 / 1010 -1200 / -1200 Weight last 48 hrs Weight 122.7 kg Weight 124.035 kg Weight 129.909 kg Physical Exam Narrative: vs noted. bp improved anasarca, obesee in bed, NARD HEENT - nc/at, eomi, anicteric neck supple lungs crackles b/l heart reg Data 09/22/22 02:15 09/22/22 02:15 A&P Assessment and plan (1) ESRD (end stage renal disease) on dialysis: 52 yr old man ESRD, cellulitis/ Q OM 1. ESRD- HD TTS as outpt -plan dialysis today 2. OM vs cellulitis- per podiatry, s/p BKA -on clinda and daptomycin 3. 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 DM care per medicine 6. anemia- iron sat 15%, ferritin 344 s/p 2 u prbc tx 7. replace vit d no need for alpha-d- 3 seen and examined w/ RN -telehealth visit Plan as above Attestations Medical Necessity Statement*: Continue medical management Coding Level of Care Code Acute Code for Chg Fwd Diagnoses ESRD (end stage renal disease) on dialysis N18.6; Z99.2
[2022-09-22 17:55] LABS: Glucose Point of Care 112 mg/dL (70-110)
--- NOTE | 2022-09-22 18:45 | PC.NURSE ---
Shift Note: Pt rested in bed throughout the shift. He can answer all the orientation questions correctly but he has said some confused things occasionally. He has complained of pain today but mostly about his bottom. He has had multiple pain medications, see MAR. He had dialysis this am, received Sodium thiosulfate ad a unit of PRBC during dialysis. He did have an anxiety episode after PRBC started, Ativan admin, anxiety alleviated. Sinus rhythm noted on monitor. Blood sugar are WNL. His left leg stump is clean, dry and intact. He has a pressure ulcer in his gluteal crevice. He has2 open wounds on his abdomen and one on the lateral aspect of right foot. Pt anuric. NO Bm noted today. Family and other visitors have been in today. Frequent safety and comfort rounds continue. Orders and/or nursing care completed as indicated. Patient monitored for response to intervention and treatment(s). Education provided includes Doxycycline, Bactrim, Plan of care ( including pain management) and progress. Patient and/or insurance verification representative verbalized understanding of all topics discussed. . Will continue to monitor.
[2022-09-22] MEDS: midodrine 5 mg TABLET 10 MG PO (23:13)
[2022-09-22] MEDS: trazodone 50 mg Tablet PO (23:14)
[2022-09-22] MEDS: ropinirole 0.25 mg Tablet PO (23:14)
[2022-09-23] VITALS (27 sets, daily range): BP systolic 101–152; BP diastolic 46–82; PULSE 72–100; RESP 5–30; TEMP 36.8; O2SAT 75–99; BMI 36.0
[2022-09-23] MEDS: HYDROmorphone 1 mg/mL INJ 1 mL 0.4 MG IVP ×4 (00:03→19:54)
[2022-09-23] MEDS: clindamycin 600 MG/50 ML PREMIX 100 MG IV ×2 (01:28→08:54)
[2022-09-23 04:32] LABS: Basophils # 0.1 10^3/uL (0.0-0.1); Eosinophils # 0.3 10^3/uL (0.0-0.8); Eosinophils % 4.9 %; Hematocrit 24.3 % (42.0-52.0); Hemoglobin 7.3 g/dL (11.7-16.6); Lymphocytes # 0.9 10^3/uL (0.8-4.8); Lymphocytes % 14.1 %; Mean Corpuscular Hemoglobin 26.2 pg (28.0-34.0); Mean Corpuscular Volume 87.1 fl (80-94); Mean Platelet Volume 10.2 fL (7.4-10.4); Monocytes # 0.7 10^3/uL (0.2-0.9); Monocytes % 9.9 %; Neutrophils # 4.65 10^3/uL (1.8-7.7); Neutrophils % 69.7 %; Nucleated Red Blood Cells % 0 %; Platelet Count 165 10^3/cmm (130-400); Red Blood Count 2.79 10^6/uL (4.1-5.3); Red Cell Distribution Width 18.1 % (12.1-15.1); White Blood Count 6.7 10^3/uL (4.0-10.0)
[2022-09-23 04:48] LABS: Alanine Aminotransferase < 5 U/L (0-41); Albumin Level 3.2 g/dL (3.5-5.2); Alkaline Phosphatase 81 U/L (40-130); Anion Gap 21.2 (5-19); Aspartate Amino Transferase 11 U/L (0-40); Blood Urea Nitrogen 26 mg/dL (6-20); Calcium 8.3 mg/dL (8.5-10.5); Carbon Dioxide 26 mmol/L (22-29); Chloride 93 mmol/L (98-107); Globulin 3.4 g/dL (1.3-4.6); Glomerular Filtration Rate 13.8 mL/min (90-130); Glucose 112 mg/dL (65-115); Magnesium 2.1 mg/dL (1.7-2.3); Osmolality Calculated 288 mOsm/kg (285-295); Phosphorus 6.2 mg/dL (2.5-4.5); Potassium 4.2 mmol/L (3.5-5.1); Sodium 136 mmol/L (136-145); Total Bilirubin 0.9 mg/dL (0.15-1.2); Total Protein 6.6 g/dL (6.6-8.7)
[2022-09-23] MEDS: piperacillin-tazobactam 3.375 GM in sodium chloride 0.9% (plus) 50 ML IV (05:25)
[2022-09-23] MEDS: b-complex-vitamin c Tablet 1 EACH PO (05:25)
[2022-09-23] MEDS: albumin 25 G/100 ML BAG 60 G IV (06:01)
[2022-09-23 07:53] LABS: Glucose Point of Care 109 mg/dL (70-110)
[2022-09-23] MEDS: bacitracin ointment Pkt 1 EACH TOPICAL ×2 (08:54→17:28)
[2022-09-23] MEDS: oxyCODONE-APAP 5-325 mg Tablet 1 TAB PO ×2 (09:22→17:27)
[2022-09-23] MEDS: sevelamer 800 mg Tablet 4000 MG PO ×3 (09:33→17:28)
[2022-09-23 11:43] LABS: Glucose Point of Care 155 mg/dL (70-110)
--- NOTE | 2022-09-23 11:45 | PM.PN ---
Subjective Subjective: Patient seen and examined this morning appears to be much more energetic and less fatigued today this. Received dialysis and 1 unit PRBC yesterday. At this point time hemoglobin 7.3 this AM. Goals of transferring out of ICU if bed becomes available. No acute events overnight. Patient sitting up at bedside. Plan will be for dressing change tomorrow. Vitals/I&O/Wt Last Vital Signs Temp 98.2 F 09/23/22 20:00 Pulse 75 09/24/22 06:00 Resp 14 09/24/22 05:00 BP 127/58 09/24/22 05:00 Pulse Ox 98 09/24/22 05:00 O2 Del Method 09/23/22 19:55 O2 Flow Rate 2 09/23/22 19:55 09/23/22 09/24/22 09/24/22 22:59 06:59 14:59 Intake Total 450 / 1200 100 / 1300 Output Total 0 / 0 0 / 0 Balance 450 / 1200 100 / 1300 Weight last 48 hrs Weight 281 lb 3.2 oz Weight 273 lb 1.6 oz Weight 270 lb 8.115 oz Physical Exam Narrative: Dressing left BKA stump is clean dry and intact. Patient endorses sensation intact to light touch to the stump. Patient is able to flex and extend at the knee. Data 09/24/22 03:46 09/24/22 03:46 Other Labs: 7.3 hemoglobin 09/23/2022 AM lab Micro: Microbiology 09/18/22 15:47 Blood Culture - Final Blood NO GROWTH AFTER 5 DAYS 09/18/22 15:45 Blood Culture - Final Blood NO GROWTH AFTER 5 DAYS A&P Assessment and plan (1) Status post below-knee amputation of left lower extremity: Plan Nonweightbearing left BKA stump PT/OT Dialysis?nephrology on board Internal medicine on board for medical management Hemoglobin 7.3 this a.m. patient's been hemodynamically stable we will continue to trend. May need an additional transfusion if hemoglobin continues to drop or becomes hemodynamically unstable. Dressing clean dry and intact May reinforce dressing if becomes saturated, plan to change dressing tomorrow. Pain control Antibiotics Orthopedics will continue to monitor Attestations Medical Necessity Statement*: Ongoing care left foot osteomyelitis undergoing left below the knee amputation. Coding Level of Care Code Acute Code for Chg Fwd Diagnoses Status post below-knee amputation of left lower extremity Z89.512 Time Spent (min) 20
[2022-09-23] MEDS: insulin lispro 100 unit/1 mL SUBCUT (12:11)
--- NOTE | 2022-09-23 12:13 | P.PN_ITS ---
Subjective Subjective: Patient is energetically doing much better Hemoglobin 7.3 Sunday dialysis Patient is off Levophed Discontinue midodrine Patient was sitting at the bedside No overnight events Patient is stating he cannot recall any events from yesterday nonproductive. Vitals/I&O/Wt Last Vital Signs Temp 97.8 F 09/22/22 16:00 Pulse 75 09/23/22 09:21 Resp 17 09/23/22 09:22 BP 101/58 09/23/22 07:00 Pulse Ox 97 09/23/22 09:22 O2 Del Method 09/23/22 09:21 O2 Flow Rate 2 09/23/22 09:21 09/22/22 09/23/22 09/23/22 22:59 06:59 14:59 Intake Total 1610 / 3260 350 / 3610 200 / 200 Output Total 0 / 2500 0 / 2500 Balance 1610 / 760 350 / 1110 200 / 200 Weight last 48 hrs Weight 123.876 kg Weight 122.7 kg Weight 124.035 kg Physical Exam Narrative: Pale complexion Sitting at the bedside Awake and alert Pleasant cooperative Left leg covered in dressing Abdomen distended however soft nontender EOMI, PERRLA GCS 15 S1, S2 Currently on 2 L of oxygen Data 09/23/22 03:48 09/23/22 03:48 A&P Assessment and plan (1) History of left below knee amputation: (2) Ulcer of sacral region, stage 1: (3) Gas gangrene: (4) Pre-ulcerative calluses: (5) ESRD (end stage renal disease) on dialysis: (6) 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 Torres will follow along Daily dressing changes Patient will need [facility] inpatient rehab assurance senior manager insurance working on it Acute hypoxia postoperatively Multiple blood transfusions given, monitor closely for fluid overload anticipate improvement after dialysis [place] Thursday Saturday dialysis Attestations Medical Necessity Statement*: Transfer out of ICU Coding Level of Care Code 02887 Diagnoses History of left below knee amputation Z89.512 Ulcer of sacral region, stage 1 L98.429 Gas gangrene A48.0 Pre-ulcerative calluses L84 ESRD (end stage renal disease) on dialysis N18.6; Z99.2 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
--- NOTE | 2022-09-23 12:24 | PM.PN ---
Subjective Subjective: NO NEW COMPLAINTS Medications: Reviewed: Yes Vitals/I&O/Wt Last Vital Signs Temp 97.8 F 09/22/22 16:00 Pulse 75 09/23/22 09:21 Resp 15 09/23/22 12:11 BP 101/58 09/23/22 07:00 Pulse Ox 97 09/23/22 12:11 O2 Del Method 09/23/22 09:21 O2 Flow Rate 2 09/23/22 09:21 09/22/22 09/23/22 09/23/22 22:59 06:59 14:59 Intake Total 1610 / 3260 350 / 3610 200 / 200 Output Total 0 / 2500 0 / 2500 Balance 1610 / 760 350 / 1110 200 / 200 Weight last 48 hrs Weight 123.876 kg Weight 122.7 kg Weight 124.035 kg Physical Exam Narrative: vs noted. bp improved HEENT - nc/at, eomi, anicteric neck supple lungs crackles b/l heart reg Data 09/23/22 03:48 09/23/22 03:48 A&P Assessment and plan (1) ESRD (end stage renal disease) on dialysis: 52 yr old man ESRD, cellulitis/ Q OM 1. ESRD- HD TTS as outpt -plan dialysis tOMORROW 2. OM vs cellulitis- per podiatry, s/p BKA -on clinda and daptomycin 3. 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 DM care per medicine 6. anemia- iron sat 15%, ferritin 344 s/p 2 u prbc tx 7. replace vit d no need for alpha-d- 3 seen and examined w/ RN -telehealth visit Plan as above Attestations Medical Necessity Statement*: Continue medical management Coding Level of Care Code Acute Code for Chg Fwd Diagnoses ESRD (end stage renal disease) on dialysis N18.6; Z99.2
[2022-09-23] MEDS: oxyCODONE 5 mg IR Tab/Cap PO ×2 (14:05→20:26)
[2022-09-23] MEDS: iron complex forte Capsule 1 EACH PO (14:05)
--- NOTE | 2022-09-23 15:02 | PC.SOCIAL ---
IMM Updated Updated on IMM. No questions voiced. Provided pt a copy. Initialed, dated, & timed copy in chart.
[2022-09-23] MEDS: amoxicillin-clav 875-125 mg Tablet 1 TAB PO (17:27)
[2022-09-23] MEDS: doxycycline 100 mg Tablet PO (17:27)
[2022-09-23 17:58] LABS: Glucose Point of Care 114 mg/dL (70-110)
--- NOTE | 2022-09-23 19:03 | PC.NURSE ---
Shift Note: Pt has had a much better day. He is completely alert today, no more confused sayings. He has been able to sit on side of bed for 2 meals and tolerate it. Sinus rhythm noted on monitor. He has been afebrile. Per Dr Sams dialysis tomorrow. He has improved enough to transfer to [facility]. Left leg dressing clean dry and intact. Bottom, right foot and abd dressing chagned. Pt refused to allow abdominal wounds to have packing changed. He remains anuric. No BM today. He had a coughing/gagging episode after evening meal. He states he has been doing this for months after meat. Frequent safety and comfort rounds continue. Orders and/or nursing care completed as indicated. Patient monitored for response to intervention and treatment(s). Education provided includes Doxycycline, Bactrim, planof care and progress. Patient and/or customer care representative verbalized understanding of plan of care, progress, pain management and medications discussed. Will continue to monitor.
[2022-09-23] MEDS: ondansetron 2 mg/ML SDV 2 mL 4 MG IVP (19:54)
[2022-09-23] MEDS: trazodone 50 mg Tablet PO (20:26)
[2022-09-23] MEDS: ropinirole 0.25 mg Tablet PO (20:26)
[2022-09-24] VITALS (17 sets, daily range): BP systolic 102–159; BP diastolic 50–73; PULSE 57–86; RESP 9–19; TEMP 36.1; O2SAT 81–100
[2022-09-24] MEDS: HYDROmorphone 1 mg/mL INJ 1 mL 0.4 MG IVP ×3 (00:36→19:38)
[2022-09-24] MEDS: oxyCODONE-APAP 5-325 mg Tablet 1 TAB PO (02:44)
[2022-09-24 05:01] LABS: Basophils # 0.1 10^3/uL (0.0-0.1); Eosinophils # 0.4 10^3/uL (0.0-0.8); Eosinophils % 5.7 %; Hematocrit 25.7 % (42.0-52.0); Hemoglobin 7.6 g/dL (11.7-16.6); Lymphocytes # 0.9 10^3/uL (0.8-4.8); Lymphocytes % 12.2 %; Mean Corpuscular HGB Conc 29.6 g/dL (30.0-36.0); Mean Corpuscular Hemoglobin 25.6 pg (28.0-34.0); Mean Corpuscular Volume 86.5 fl (80-94); Mean Platelet Volume 10.9 fL (7.4-10.4); Monocytes # 0.6 10^3/uL (0.2-0.9); Monocytes % 7.9 %; Neutrophils # 5.26 10^3/uL (1.8-7.7); Neutrophils % 72.8 %; Nucleated Red Blood Cells % 0 %; Platelet Count 172 10^3/cmm (130-400); Red Blood Count 2.97 10^6/uL (4.1-5.3); Red Cell Distribution Width 18.6 % (12.1-15.1); White Blood Count 7.2 10^3/uL (4.0-10.0)
[2022-09-24 05:21] LABS: Alanine Aminotransferase < 5 U/L (0-41); Albumin Level 3.1 g/dL (3.5-5.2); Alkaline Phosphatase 79 U/L (40-130); Anion Gap 24.7 (5-19); Aspartate Amino Transferase 11 U/L (0-40); Blood Urea Nitrogen 34 mg/dL (6-20); Calcium 8.6 mg/dL (8.5-10.5); Carbon Dioxide 25 mmol/L (22-29); Chloride 93 mmol/L (98-107); Globulin 3.8 g/dL (1.3-4.6); Glomerular Filtration Rate 11.5 mL/min (90-130); Glucose 95 mg/dL (65-115); Magnesium 2.2 mg/dL (1.7-2.3); Osmolality Calculated 293 mOsm/kg (285-295); Phosphorus 7.3 mg/dL (2.5-4.5); Potassium 4.7 mmol/L (3.5-5.1); Sodium 138 mmol/L (136-145); Total Bilirubin 0.8 mg/dL (0.15-1.2); Total Protein 6.9 g/dL (6.6-8.7)
[2022-09-24] MEDS: b-complex-vitamin c Tablet 1 EACH PO (06:29)
[2022-09-24 07:32] LABS: Glucose Point of Care 92 mg/dL (70-110)
--- NOTE | 2022-09-24 08:03 | PM.PN ---
Subjective Subjective: Patient seen and examined this morning. Dressing changed today. Hemoglobin remained stable patient remains hemodynamically stable. No acute events or issues overnight. Orthopedics will sign off patient at this time and follow peripherally. Patient to follow-up with me in the office in 2 weeks. Patient understands and agrees with current plan. All questions answered. Vitals/I&O/Wt Last Vital Signs Temp 98.2 F 09/23/22 20:00 Pulse 75 09/24/22 06:00 Resp 14 09/24/22 05:00 BP 127/58 09/24/22 05:00 Pulse Ox 98 09/24/22 05:00 O2 Del Method 09/23/22 19:55 O2 Flow Rate 2 09/23/22 19:55 09/23/22 09/24/22 09/24/22 22:59 06:59 14:59 Intake Total 450 / 1200 100 / 1300 Output Total 0 / 0 0 / 0 Balance 450 / 1200 100 / 1300 Weight last 48 hrs Weight 281 lb 3.2 oz Weight 273 lb 1.6 oz Weight 270 lb 8.115 oz Physical Exam Narrative: Dressing left BKA stump is clean dry and intact. Patient endorses sensation intact to light touch to the stump. Patient is able to flex and extend at the knee. Dressing subsequently taken down. Naomy in place. Mild serous drainage noted. There does appear to be some duskiness and patchy areas throughout the BKA stump. No signs of erythema purulent drainage or any acute signs of infection. Normal postoperative swelling, no excessive tension noted in skin edges. Data 09/24/22 03:46 09/24/22 03:46 Micro: Microbiology 09/18/22 15:47 Blood Culture - Final Blood NO GROWTH AFTER 5 DAYS 09/18/22 15:45 Blood Culture - Final Blood NO GROWTH AFTER 5 DAYS A&P Assessment and plan (1) Status post below-knee amputation of left lower extremity: Plan Nonweightbearing left BKA stump PT/OT Dialysis?nephrology on board Internal medicine on board for medical management Hemoglobin 7.6 this a.m. patient's been hemodynamically stable we will continue to trend. May need an additional transfusion if hemoglobin continues to drop or becomes hemodynamically unstable. Dressing changed today. Pain control Antibiotics No further orthopedic intervention required at this time. Orthopedic surgery team will sign off at patient and follow peripherally. If there is any questions pertaining to patient's care feel free to contact myself or my office. Plan will be to follow-up with patient in roughly 2 weeks postoperatively. Patient will receive appropriate discharge instructions and pain medication postoperatively. Appreciate internal medicine for medical management assistance caring for this patient. Attestations Medical Necessity Statement*: Ongoing care left foot osteomyelitis undergoing left below the knee amputation. Coding Level of Care Code Acute Code for Chg Fwd Diagnoses Status post below-knee amputation of left lower extremity Z89.512 Time Spent (min) 25
[2022-09-24] MEDS: amoxicillin-clav 875-125 mg Tablet 1 TAB PO ×2 (08:24→17:13)
[2022-09-24] MEDS: doxycycline 100 mg Tablet PO ×2 (08:24→17:13)
[2022-09-24] MEDS: sevelamer 800 mg Tablet 4000 MG PO ×3 (08:24→16:05)
[2022-09-24] MEDS: sevelamer 800 mg Tablet 3200 MG PO ×2 (10:24→18:30)
[2022-09-24] MEDS: bacitracin ointment 28 gm 1 APPLIC TOPICAL ×2 (10:26→17:13)
[2022-09-24 12:12] LABS: Glucose Point of Care 115 mg/dL (70-110)
--- NOTE | 2022-09-24 13:17 | P.PN_ITS ---
Subjective Subjective: Patient is doing much better today Awaiting inpatient [facility] rehab transfer He can be transferred to [facility] once we have a bed Hemoglobin 7.6 Hemodynamically stable Currently on 2 L of oxygen However when he starts talking speaking his oxygen saturation improved above 92% on room air He does use oxygen on and off on 2 L at home Vitals/I&O/Wt Last Vital Signs Temp 98.2 F 09/23/22 20:00 Pulse 84 09/24/22 09:10 Resp 16 09/24/22 09:10 BP 127/58 09/24/22 05:00 Pulse Ox 99 09/24/22 09:10 O2 Del Method 09/24/22 09:10 O2 Flow Rate 2 09/24/22 09:10 09/23/22 09/24/22 09/24/22 22:59 06:59 14:59 Intake Total 450 / 1200 100 / 1300 Output Total 0 / 0 0 / 0 Balance 450 / 1200 100 / 1300 Weight last 48 hrs Weight 127.55 kg Weight 123.876 kg Physical Exam Narrative: Patient is awake and alert at the bedside Pale complexion slightly better Abdomen distended nontender Currently on 2 L No active chest pain S1, S2 Left leg covered in dressing No active drainage Pleasant and cooperative In good spirits Data 09/24/22 03:46 09/24/22 03:46 Micro: Microbiology 09/18/22 15:47 Blood Culture - Final Blood NO GROWTH AFTER 5 DAYS 09/18/22 15:45 Blood Culture - Final Blood NO GROWTH AFTER 5 DAYS A&P Assessment and plan (1) Hypovolemic shock: (2) Anemia of chronic disease: (3) History of left below knee amputation: (4) Ulcer of sacral region, stage 1: (5) Gas gangrene: (6) Acquired equinovarus deformity of left foot: (7) 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: (8) ESRD (end stage renal disease) on dialysis: (9) Type 2 diabetes mellitus with diabetic polyneuropathy: Qualifiers: Diabetes mellitus intermediate insulin use: unspecified intermediate insulin use status Qualified Code(s): E11.42 - Type 2 diabetes mellitus with diabetic polyneuropathy Plan My plan is to continue most of his medications, not changing his regimen, iron supplements, Patient is awaiting placement to inpatient [facility] rehab we will know for sure on Sunday Status post 2 unit PRBC started after surgery hemoglobin stable around 1.6 which is anemia of chronic disease which got exacerbated after surgery Continue iron supplement Gas gangrene status post below-knee amputation of left side, discontinue IV antibiotics, switch to Augmentin and doxycycline Type 2 diabetes continue consistent carb renal diet Continue PT Patient in good spirits No signs of depression Pain well managed End-stage renal disease Sunday dialysis sessions Full code DVT prophylaxis on hold Attestations Medical Necessity Statement*: Transfer to [facility] Diagnoses Hypovolemic shock R57.1 Anemia of chronic disease D63.8 History of left below knee amputation Z89.512 Ulcer of sacral region, stage 1 L98.429 Gas gangrene A48.0 Acquired equinovarus deformity of left foot M21.542 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
--- NOTE | 2022-09-24 16:06 | PC.NURSE ---
Patient non-compliant with Renal Diabetic Diet. sister brought in take-out Welsh dinner.
[2022-09-24 17:13] LABS: Glucose Point of Care 128 mg/dL (70-110)
[2022-09-24] MEDS: oxyCODONE 5 mg IR Tab/Cap PO (17:40)
--- NOTE | 2022-09-24 19:32 | PC.NURSE ---
Shift Note: Pt required less pain med today. Dilaudid admin once and OXy IR admin this evening. It is his bottom that is painful,. Frequent repositioning and pillow placement offered, at times it is declined. Pt worked with PT today, standing at side of bed. Pt remains afebrile, VS WNL. His O2 sats do drop to mid 80's when he removes the cannula which he does quite frequently. Dr Sams decided labs were ok , no dialysis needed today. He was non-complliant with his renal Diabetic diet today, he had family bring him in some [employer] take-out to get enough protein . He remains anuric. No Bm noted today Frequent safety and comfort rounds continue. Orders and/or nursing care completed as indicated. Patient monitored for response to intervention and treatment(s). Education provided includes plan of care, progress, pain management, diet and medications. Patient and/or direct customer service representative verbalized understanding of plan of care, progress, pain management, diet and medication s.. Will continue to monitor.
--- NOTE | 2022-09-24 19:43 | PM.PN ---
Subjective Subjective: no new c/o per RN Medications: Reviewed: Yes Vitals/I&O/Wt Last Vital Signs Temp 98.2 F 09/23/22 20:00 Pulse 80 09/24/22 14:45 Resp 16 09/24/22 19:38 BP 127/58 09/24/22 05:00 Pulse Ox 99 09/24/22 19:38 O2 Del Method 09/24/22 09:10 O2 Flow Rate 2 09/24/22 09:10 09/24/22 09/24/22 09/24/22 06:59 14:59 22:59 Intake Total 100 / 1300 1250 / 1250 350 / 1600 Output Total 0 / 0 0 / 0 Balance 100 / 1300 1250 / 1250 350 / 1600 Weight last 48 hrs Weight 127.55 kg Weight 123.876 kg Data 09/24/22 03:46 09/24/22 03:46 Micro: Microbiology 09/18/22 15:47 Blood Culture - Final Blood NO GROWTH AFTER 5 DAYS 09/18/22 15:45 Blood Culture - Final Blood NO GROWTH AFTER 5 DAYS A&P Assessment and plan (1) ESRD (end stage renal disease) on dialysis: 52 yr old man ESRD, cellulitis/ Q OM 1. ESRD- HD TTS as outpt -plan dialysis tOMORROW 2. OM vs cellulitis- per podiatry, s/p BKA -on clinda and daptomycin 3. hypotension- improved after blood transfusion and IV albumin 4. 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 DM care per medicine 6. anemia- iron sat 15%, ferritin 344 s/p 2 u prbc tx 7. replace vit d no need for alpha-d- 3 seen and examined w/ RN -telehealth visit Plan as above Attestations Medical Necessity Statement*: Continue medical management Coding Level of Care Code Acute Code for Chg Fwd Diagnoses ESRD (end stage renal disease) on dialysis N18.6; Z99.2
[2022-09-24 21:42] LABS: Glucose Point of Care 131 mg/dL (70-110)
[2022-09-25] VITALS (14 sets, daily range): BP systolic 102–144; BP diastolic 68–78; PULSE 73–93; RESP 16–26; TEMP 36.4–36.8; O2SAT 86–97
[2022-09-25] MEDS: ondansetron 2 mg/ML SDV 2 mL 4 MG IVP (00:01)
[2022-09-25] MEDS: trazodone 50 mg Tablet PO (00:01)
[2022-09-25] MEDS: oxyCODONE 5 mg IR Tab/Cap PO ×3 (01:54→18:30)
[2022-09-25] MEDS: oxyCODONE-APAP 5-325 mg Tablet 1 TAB PO (05:30)
[2022-09-25] MEDS: b-complex-vitamin c Tablet 1 EACH PO (05:30)
[2022-09-25 06:12] LABS: Basophils # 0.1 10^3/uL (0.0-0.1); Basophils % 0.8 %; Eosinophils # 0.4 10^3/uL (0.0-0.8); Eosinophils % 6.3 %; Hematocrit 25.4 % (42.0-52.0); Hemoglobin 7.5 g/dL (11.7-16.6); Lymphocytes # 0.7 10^3/uL (0.8-4.8); Lymphocytes % 11.6 %; Mean Corpuscular HGB Conc 29.5 g/dL (30.0-36.0); Mean Corpuscular Volume 88.2 fl (80-94); Mean Platelet Volume 10.7 fL (7.4-10.4); Monocytes # 0.4 10^3/uL (0.2-0.9); Monocytes % 6.6 %; Neutrophils # 4.75 10^3/uL (1.8-7.7); Neutrophils % 74.2 %; Nucleated Red Blood Cells % 0 %; Platelet Count 166 10^3/cmm (130-400); Red Blood Count 2.88 10^6/uL (4.1-5.3); Red Cell Distribution Width 19.3 % (12.1-15.1); White Blood Count 6.4 10^3/uL (4.0-10.0)
[2022-09-25 06:33] LABS: Anion Gap 23.1 (5-19); Blood Urea Nitrogen 43 mg/dL (6-20); Calcium 8.7 mg/dL (8.5-10.5); Carbon Dioxide 26 mmol/L (22-29); Chloride 93 mmol/L (98-107); Glomerular Filtration Rate 9.4 mL/min (90-130); Glucose 111 mg/dL (65-115); Osmolality Calculated 296 mOsm/kg (285-295); Potassium 5.1 mmol/L (3.5-5.1); Sodium 137 mmol/L (136-145)
[2022-09-25 07:50] LABS: Glucose Point of Care 107 mg/dL (70-110)
--- NOTE | 2022-09-25 10:29 | PM.PN ---
Subjective Subjective: Patient getting dialyzed this morning No acute events Awaiting response from [facility] inpatient rehab senior group manager updated this morning Hemoglobin stable at 7.5 Hemodynamically stable Vitals/I&O/Wt Last Vital Signs Temp 97.5 F L 09/25/22 07:38 Pulse 78 09/25/22 08:00 Resp 17 09/25/22 08:00 BP 128/78 09/25/22 07:38 Pulse Ox 93 09/25/22 08:00 O2 Del Method 09/25/22 08:00 O2 Flow Rate 2 09/25/22 08:00 09/24/22 09/25/22 09/25/22 22:59 06:59 14:59 Intake Total 470 / 1720 240 / 1960 Output Total 0 / 0 Balance 470 / 1720 240 / 1960 Weight last 48 hrs Weight 125.781 kg Weight 127.55 kg Physical Exam Narrative: Patient is in good spirits Pleasant and cooperative Left foot dressing no active drainage Abdomen distended nontender S1, S2 Hemodynamic stable Audible stridor or wheezing Doing well on 2 L nasal cannula Data 09/25/22 05:54 09/25/22 05:54 Micro: Microbiology 09/20/22 06:15 Blood Culture - Final Blood NO GROWTH AFTER 5 DAYS 09/20/22 06:13 Blood Culture - Final Blood NO GROWTH AFTER 5 DAYS A&P Assessment and plan (1) Foot osteomyelitis, left: (2) Hypovolemic shock: (3) Anemia of chronic disease: (4) History of left below knee amputation: (5) 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 It was secondary to hypovolemic shock Fluid overload, protein calorie malnourishment neuropathy in nature Appreciate dietary recommendations Full code Renal dialysis diet,/diabetic I have discontinued IV antibiotics he is only getting doxycycline and Augmentin for now which I am planning to discontinue at the time of discharge Restless leg syndrome, continue ropinirole Constipation: Continue senna S and bowel regimen Attestations Medical Necessity Statement*: Awaiting placement Diagnoses Foot osteomyelitis, left M86.9 Hypovolemic shock R57.1 Anemia of chronic disease D63.8 History of left below knee amputation Z89.512 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
--- NOTE | 2022-09-25 10:49 | PM.PN ---
Subjective Subjective: getting HD Medications: Reviewed: Yes Vitals/I&O/Wt Last Vital Signs Temp 97.5 F L 09/25/22 07:38 Pulse 78 09/25/22 08:00 Resp 17 09/25/22 08:00 BP 128/78 09/25/22 07:38 Pulse Ox 93 09/25/22 08:00 O2 Del Method 09/25/22 08:00 O2 Flow Rate 2 09/25/22 08:00 09/24/22 09/25/22 09/25/22 22:59 06:59 14:59 Intake Total 470 / 1720 240 / 1960 Output Total 0 / 0 Balance 470 / 1720 240 / 1960 Weight last 48 hrs Weight 125.781 kg Weight 127.55 kg Physical Exam Narrative: vs noted. bp improved HEENT - nc/at, eomi, anicteric neck supple lungs crackles b/l heart reg Data 09/25/22 05:54 09/25/22 05:54 Micro: Microbiology 09/20/22 06:15 Blood Culture - Final Blood NO GROWTH AFTER 5 DAYS 09/20/22 06:13 Blood Culture - Final Blood NO GROWTH AFTER 5 DAYS A&P Assessment and plan (1) ESRD (end stage renal disease) on dialysis: 52 yr old man ESRD, cellulitis/ Q OM 1. ESRD- HD TTS as outpt, on MWF schedule while in here -plan dialysis today 2. OM vs cellulitis- per podiatry, s/p BKA 3. hypotension- improved after blood transfusion and IV albumin 4. 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 DM care per medicine 6. anemia- iron sat 15%, ferritin 344 s/p 2 u prbc tx 7. replace vit d no need for alpha-d- 3 seen and examined w/ RN -telehealth visit Plan as above Attestations Medical Necessity Statement*: Awaiting placement Coding Level of Care Code Acute Code for Chg Fwd Diagnoses ESRD (end stage renal disease) on dialysis N18.6; Z99.2
--- NOTE | 2022-09-25 11:28 | PC.SOCIAL ---
IMM update IMM updated with patient. Verbalized an understanding. Copy Pg 2 provided. Initialled, dated ,timed, and placed in chart.
--- NOTE | 2022-09-25 11:35 | PC.HD ---
Patient received sodium thiosulfate 25g via HD circuit at 10:00. Patient received Epoetin ysabel 10,000 units via HD circuit at 11:00. Primary RN, Padmaja, notified. Patient returned to his room after HD on 2L NC, pain improved from 9 to 7 after PO pain meds administration. No issues or complaints noted, other than severe skin itching.
[2022-09-25] MEDS: iron complex forte Capsule 1 EACH PO (12:54)
[2022-09-25] MEDS: sevelamer 800 mg Tablet 4000 MG PO ×2 (12:54→17:42)
[2022-09-25 17:04] LABS: Glucose Point of Care 94 mg/dL (70-110)
[2022-09-25] MEDS: amoxicillin-clav 875-125 mg Tablet 1 TAB PO (17:42)
[2022-09-25] MEDS: doxycycline 100 mg Tablet PO (17:42)
[2022-09-25 19:33] LABS: Glucose Point of Care 96 mg/dL (70-110)
[2022-09-26] VITALS (9 sets, daily range): BP systolic 136–145; BP diastolic 62–76; PULSE 83–99; RESP 14–20; TEMP 36.4–36.8; O2SAT 91–98; BMI 36.4
[2022-09-26 02:23] LABS: Glucose Point of Care 119 mg/dL (70-110)
[2022-09-26] MEDS: oxyCODONE-APAP 5-325 mg Tablet 1 TAB PO (04:16)
[2022-09-26] MEDS: b-complex-vitamin c Tablet 1 EACH PO (06:07)
[2022-09-26 06:08] LABS: Basophils % 0.6 %; Eosinophils # 0.4 10^3/uL (0.0-0.8); Eosinophils % 7.1 %; Hematocrit 26.3 % (42.0-52.0); Hemoglobin 7.8 g/dL (11.7-16.6); Lymphocytes # 0.9 10^3/uL (0.8-4.8); Lymphocytes % 16.2 %; Mean Corpuscular HGB Conc 29.7 g/dL (30.0-36.0); Mean Corpuscular Hemoglobin 26.2 pg (28.0-34.0); Mean Corpuscular Volume 88.3 fl (80-94); Mean Platelet Volume 9.9 fL (7.4-10.4); Monocytes # 0.3 10^3/uL (0.2-0.9); Monocytes % 6.3 %; Neutrophils # 3.63 10^3/uL (1.8-7.7); Neutrophils % 69.2 %; Nucleated Red Blood Cells % 0 %; Platelet Count 159 10^3/cmm (130-400); Red Blood Count 2.98 10^6/uL (4.1-5.3); Red Cell Distribution Width 19.8 % (12.1-15.1); White Blood Count 5.2 10^3/uL (4.0-10.0)
[2022-09-26 06:26] LABS: Anion Gap 20.5 (5-19); Blood Urea Nitrogen 30 mg/dL (6-20); Calcium 8.9 mg/dL (8.5-10.5); Carbon Dioxide 26 mmol/L (22-29); Chloride 96 mmol/L (98-107); Glucose 105 mg/dL (65-115); Osmolality Calculated 293 mOsm/kg (285-295); Potassium 4.5 mmol/L (3.5-5.1); Sodium 138 mmol/L (136-145)
[2022-09-26 06:49] LABS: Glucose Point of Care 105 mg/dL (70-110)
[2022-09-26] MEDS: doxycycline 100 mg Tablet PO (09:01)
[2022-09-26] MEDS: amoxicillin-clav 875-125 mg Tablet 1 TAB PO (09:01)
[2022-09-26] MEDS: sennosides-docusate Tablet 2 TAB PO (09:02)
[2022-09-26] MEDS: bacitracin ointment 28 gm 1 APPLIC TOPICAL (09:03)
[2022-09-26] MEDS: HYDROmorphone 1 mg/mL INJ 1 mL 0.4 MG IVP (09:41)
[2022-09-26] MEDS: sevelamer 800 mg Tablet 4000 MG PO ×2 (09:41→13:43)
[2022-09-26 11:02] LABS: Glucose Point of Care 97 mg/dL (70-110)
--- NOTE | 2022-09-26 11:03 | PC.CHAP ---
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 [] Patient/Family/Request visit [] Outpatient visit [] Follow-up visit [] Physician referral [] Code/Alert [x] Routine visit [] Staff referral [] Actively dying [] Patient sleeping [] Family support [] [] Out of room [] Palliative care [] [] Receiving care in room [] Pre-surgical visit [] Trauma [] Long length of stay [] ICU visit [] Other: Relational/Emotional Strength [x] Patient feels connected with others/family/visitors/staff [] Distress [] Loneliness/isolation [] Abandonment Spirituality of Patient [x] Person of Lizabeth [] Attends Evangelical of their Lizabeth [x] Believes in Prayer [] Reads Bible or Confucianist materials [] There are Spiritual issues to be addressed Skiver Box Toe Interventions [x] Prayer [] Active listening [] Non-anxious presence [x] Spiritual/emotional support [] Crisis/trauma care [] Spiritual counseling [] Bereavement support [] Provided bereavement packet [] Provided Bible/devotional materials [] Provided toy/stuffed animal, coloring book to patient or family member [] Provided Communion [] Anointing/[place] [] Salvation [x] Completed spiritual assessment [] Other: Impact on Illness or Injury [] Angry [] Fearful [] Anxious [] Often cries [] Exhaustion [] Unable to work [] Unable to attend voodoo [] Unable to walk/stand [] Unable to read [] Unable to drive [] Unable to eat/drink [] Unable to sleep [] Unable to be with family [] Patient intubated [] Other: Summary Time spent with patient 10 min
--- NOTE | 2022-09-26 11:14 | PM.DCS ---
Discharge Providers Date of Admission: 09/18/22 19:01 Date of Discharge: September 26, 2022 Attending Provider at Admission: Chris Johansen MD Attending Provider at Discharge: Chris Johansen MD Primary Care Provider: Sulma Wetzel MD Diagnoses at Discharge Discharge Diagnosis (1) ESRD (end stage renal disease) on dialysis: Status: Acute Reason for Visit Reason for Visit: fever sent by wound care Hospital Course Hospital Course 52-year-old male who was admitted for management and evaluation of left foot gas gangrene, Dr. Torres was consulted who recommended amputation, Dr. Torres asked his colleague Dr. Crane for left below-knee amputation. Surgery was done on 09/21, postoperatively patient required 2 units PRBC, he was kept in ICU for about 2 days for hypovolemic shock required Levophed 1 bag of albumin and 2 units PRBC. He has been dialyzed on his schedule Sunday, and Sunday with the help of telemetry nephro. In total patient had received 3 units PRBC during hospitalization. Fluid culture showing MRSA his antibiotics were switched from IV to p.o. regimen after left below-knee amputation. Patient has opted to go to inpatient rehab at [facility]. He gets paracentesis every 2 weeks however with frequent dialysis and use of albumin there is no need of paracentesis before discharge. He has remained pain-free no abdominal pain he has remained afebrile. Blood cultures negative to date. He does get dialyzed through his left arm fistula. I do believe his right arm PICC line can be removed in the near future. His right foot does have calluses, he is diabetic, patient is agreeable to follow-up with Dr. Torres outpatient. He is high risk for worsening of diabetic foot ulcers on right foot as well. He is suffering from uremic pruritus we will give him Benadryl and aloe vera calamine lotion, his medications has been same in the last 72 hours Physical Exam Narrative: Awake and alert Abdomen distended however nontender Skin is dry Patient is experiencing uremic pruritus S1, S2 Abdomen soft Awake and alert Pleasant and cooperative Left arm fistula, right arm PICC line Discharge Data Studies Completed and Pending Completed Studies During Hospitalization Category Date Time Status CT foot LT w con [id number] Stat Cat Scan 09/18/22 14:10 Completed XR chest 1V portable [id number] Stat Exams 09/18/22 15:41 Completed XR foot LT min 3V* [id number] Stat Exams 09/18/22 16:08 Completed XR tibia fibula LT 2V [id number] Routine Exams 09/21/22 09:49 Completed Pending at discharge Category Date Time Status Urinalysis Stat Lab 09/18/22 15:42 Uncollected Pathology: Surgical [PTH] Routine Pth 09/21/22 12:31 Received Radiology Impressions Foot CT 09/18/22 14:10 IMPRESSION: 1. Evidence of osteomyelitis involving the base of the 4th and 5th metatarsals as well as the adjacent cuboid. 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 Ulceration involving the lateral aspect of the foot overlying the 4th and 5th metatarsals. No well-formed drainable fluid collection or drainable abscess. 3. Diffuse cellulitis. 4. Demineralization LEFT foot. Attempted notification VERO Toro at 09/18/2022 3:16 PM. Chest X-Ray 09/18/22 15:41 IMPRESSION: 1. No acute cardiopulmonary process. 2. Right upper extremity PICC is stable in position with the tip at the superior vena cava. 3. Incidental/nonacute findings are listed in the report. Foot X-Ray 09/18/22 16:08 IMPRESSION: 1. Extensive bony destruction/lysis involving the base and proximal metadiaphysis of the 4th and 5th metatarsals as well as the adjacent cuboid bone. A small area of lysis is also seen in the distal/medial metaphysis of the 5th metatarsal, findings are stable and suspicious for osteomyelitis. 2. Large ulcer in the lateral/volar left hindfoot with soft tissue emphysema extending to the areas of osteomyelitis at the proximal 4th and 5th metatarsals and the cuboid bone. Findings are stable. 3. Stable diffuse marked soft tissue swelling of the left foot suspicious for cellulitis/soft tissue infection. 4. Incidental/nonacute findings are listed in the report. Tibia/Fibula X-Ray 09/21/22 09:49 IMPRESSION: No acute findings. Laboratory Results WBC 5.2 10^3/uL (4.0-10.0) 09/26/22 05:32 RBC 2.98 10^6/uL (4.1-5.3) L 09/26/22 05:32 Hgb 7.8 g/dL (11.7-16.6) L 09/26/22 05:32 Hct 26.3 % (42.0-52.0) L 09/26/22 05:32 MCV 88.3 fl (80-94) 09/26/22 05:32 MCH 26.2 pg (28.0-34.0) L 09/26/22 05:32 MCHC 29.7 g/dL (30.0-36.0) L 09/26/22 05:32 RDW 19.8 % (12.1-15.1) H 09/26/22 05:32 Plt Count 159 10^3/cmm (130-400) 09/26/22 05:32 MPV 9.9 fL (7.4-10.4) 09/26/22 05:32 Neut % (Auto) 69.2 % 09/26/22 05:32 Lymph % (Auto) 16.2 % 09/26/22 05:32 [place] % (Auto) 6.3 % 09/26/22 05:32 Eos % (Auto) 7.1 % 09/26/22 05:32 Baso % (Auto) 0.6 % 09/26/22 05:32 Neut # (Auto) 3.63 10^3/uL (1.8-7.7) 09/26/22 05:32 Lymph # (Auto) 0.9 10^3/uL (0.8-4.8) 09/26/22 05:32 [place] # (Auto) 0.3 10^3/uL (0.2-0.9) 09/26/22 05:32 Eos # (Auto) 0.4 10^3/uL (0.0-0.8) 09/26/22 05:32 Baso # (Auto) 0.0 10^3/uL (0.0-0.1) 09/26/22 05:32 Nucleated RBC % (auto) 0 % 09/26/22 05:32 Nucleated RBCs # 0.0 /100WBC 09/26/22 05:32 ESR 76 mm/hr (0-10) H 09/18/22 14:03 Sodium 138 mmol/L (136-145) 09/26/22 05:32 Potassium 4.5 mmol/L (3.5-5.1) 09/26/22 05:32 Chloride 96 mmol/L (98-107) L 09/26/22 05:32 Carbon Dioxide 26 mmol/L (22-29) 09/26/22 05:32 Anion Gap 20.5 (5-19) H 09/26/22 05:32 BUN 30 mg/dL (6-20) H 09/26/22 05:32 Creatinine 5.1 mg/dL (0.7-1.2) H 09/26/22 05:32 GFR Calculation 12.0 mL/min (90-130) L 09/26/22 05:32 Glucose 105 mg/dL (65-115) 09/26/22 05:32 POC Glucose 97 mg/dL (70-110) 09/26/22 10:52 Calculated Osmolality 293 mOsm/kg (285-295) 09/26/22 05:32 Lactic Acid 2.4 mmol/L (0.5-2.2) H 09/18/22 14:03 Lactic Acid (Sepsis) 1.6 mmol/L (0.5-2.2) 09/18/22 16:53 Calcium 8.9 mg/dL (8.5-10.5) 09/26/22 05:32 Phosphorus 7.3 mg/dL (2.5-4.5) H 09/24/22 03:46 Magnesium 2.2 mg/dL (1.7-2.3) 09/24/22 03:46 Iron 16 ug/dL (59-158) L 09/20/22 04:50 TIBC 108 mcg/dl 09/20/22 04:50 % Saturation 14.8 % (20-50) L 09/20/22 04:50 Unsat Iron Binding 92 ug/dL (112-347) L 09/20/22 04:50 Ferritin 334 ng/mL (30-400) 09/20/22 04:50 Total Bilirubin 0.8 mg/dL (0.15-1.2) 09/24/22 03:46 AST 11 U/L (0-40) 09/24/22 03:46 ALT < 5 U/L (0-41) 09/24/22 03:46 Alkaline Phosphatase 79 U/L (40-130) 09/24/22 03:46 C-Reactive Protein 113.9 mg/L (0.0-4.9) H 09/19/22 04:06 Total Protein 6.9 g/dL (6.6-8.7) 09/24/22 03:46 Albumin 3.1 g/dL (3.5-5.2) L 09/24/22 03:46 Globulin 3.8 g/dL (1.3-4.6) 09/24/22 03:46 25-OH Vitamin D Total 15 ng/mL (30-100) L 09/20/22 04:50 Procalcitonin 40.77 ng/mL (0-0.5) H 09/18/22 17:09 PTH Intact 189.7 pg/mL (15-65) H 09/20/22 06:13 Calcium (PTH Intact) 7.7 mg/dL (8.5-10.5) L 09/20/22 06:13 Blood Type A Positive 09/20/22 06:07 Rho(D) Type Positive 09/20/22 06:07 Antibody Screen Negative 09/20/22 06:07 Crossmatch See Detail 09/20/22 06:07 Vitals Last Vital Signs Temp 97.6 F 09/26/22 08:00 Pulse 88 09/26/22 09:55 Resp 16 09/26/22 09:55 BP 136/62 09/26/22 08:00 Pulse Ox 95 09/26/22 09:55 O2 Del Method 09/26/22 09:55 O2 Flow Rate 2 09/26/22 04:00 Discharge Plan Discharge Patient Disposition: Xfer Other Condition: Stable Prescriptions: New oxycodone-acetaminophen 5-325 mg Tablet 1 tab PO Q6H PRN (Reason: Severe Pain) Qty: 10 0RF Ferrex 150 Forte 150-25-1 mg-mcg-mg Capsule 1 ea PO Q48H Qty: 30 0RF diphenhydramine HCl [Benadryl Allergy] 25 mg tablet 25 mg PO Q8H PRN (Reason: itching) Qty: 30 0RF amoxicillin-pot clavulanate 875-125 mg Tablet 1 tab PO BID Qty: 10 0RF doxycycline monohydrate 100 mg Tablet 100 mg PO BID Qty: 6 0RF sennosides-docusate sodium [Stool Softener-Laxative] 8.6-50 mg Tablet 2 tab PO DAILY Qty: 20 0RF Continued (DME) Wheel Chair See Rx Instructions .Route .MEDSUPPLY Qty: 1 0RF Rx Instructions: As directed HOME (DME) Compression Stockings See Rx Instructions .Route .MEDSUPPLY Qty: 1 0RF Rx Instructions: As directed (DME) [place] boot modification See Rx Instructions .Route .MEDSUPPLY Qty: 1 0RF Rx Instructions: Straps are failing RenaPlex-D 800 mcg-12.5 mg -2,000 unit tablet 1 tab PO QAM trazodone 50 mg tablet 50 mg PO BEDTIME PRN (Reason: Sleep) ropinirole 0.25 mg tablet 0.25 mg PO BEDTIME PRN (Reason: Restless Leg(S)) gabapentin 300 mg capsule 300 mg PO TID Lokelma 5 gram powder in packet See Rx Instructions .ROUTE .COMPLEX Rx Instructions: 1 packet po daily four times a week on non dialysis days sodium thiosulfate 1 gram/10 mL (100 mg/mL) Solution 1 g IV .3X WEEK Rx Instructions: goes in with dialysis oxycodone 5 mg Tablet 5 mg PO Q6H PRN (Reason: Pain) ondansetron HCl 4 mg tablet 4 mg PO Q8H PRN (Reason: Nausea) cholecalciferol (vitamin D3) [Vitamin D3] 25 mcg (1,000 unit) Tablet 25 mcg PO QAM multivitamin Tablet 1 tab PO QAM lidocaine-prilocaine 2.5-2.5 % cream See Rx Instructions .ROUTE .COMPLEX Rx Instructions: use as directed sevelamer carbonate 800 mg tablet See Rx Instructions .ROUTE .COMPLEX Rx Instructions: 5 tabs po tid with meals and 4 tabs po bid with snacks Discontinued cilostazol 50 mg Tablet 50 mg PO BID torsemide 100 mg tablet 100 mg PO BID Hold Instructions: Resume on 03/27/22. daptomycin 500 mg recon soln 650 mg IV Q48H Discharge Orders: Discharge Order (Routine); Ordered 09/26/22 Ordered By: Chris Johansen Referrals: Sulma Wetzel MD [Primary Care Provider] - 10/02/22 11:15 am Discharge Diet: Cardiac Discharge Attestations Time Spent in Discharge Care*: less than 30 min Status at Discharge: Cognitive status at discharge: cognitively intact, Behavioral status at discharge: cooperative, Quality Metrics Clinical Quality Measures [ No reported AMI, CVA or VTE this stay] Coding Level of Care Code Acute Code for Chg Fwd Diagnoses ESRD (end stage renal disease) on dialysis N18.6; Z99.2
--- NOTE | 2022-09-26 12:05 | PM.PN ---
Subjective Subjective: No new complaints Medications: Reviewed: Yes Vitals/I&O/Wt Last Vital Signs Temp 97.6 F 09/26/22 08:00 Pulse 88 09/26/22 09:55 Resp 16 09/26/22 09:55 BP 136/62 09/26/22 08:00 Pulse Ox 95 09/26/22 09:55 O2 Del Method 09/26/22 09:55 O2 Flow Rate 2 09/26/22 04:00 09/25/22 09/26/22 09/26/22 22:59 06:59 14:59 Intake Total 480 / 1020 118 / 1138 0 / 0 Balance 480 / -2280 118 / -2162 0 / 0 Weight last 48 hrs Weight 125.447 kg Weight 123 kg Weight 125.781 kg Physical Exam Narrative: Awake and alert S1, S2 Pleasant and cooperative Left arm fistula, right arm PICC line Data 09/26/22 05:32 09/26/22 05:32 Micro: Microbiology 09/20/22 06:15 Blood Culture - Final Blood NO GROWTH AFTER 5 DAYS 09/20/22 06:13 Blood Culture - Final Blood NO GROWTH AFTER 5 DAYS A&P Assessment and plan (1) ESRD (end stage renal disease) on dialysis: 52 yr old man ESRD, cellulitis/ Q OM 1. ESRD- HD TTS as outpt, on MWF schedule while in here -plan dialysis tomorrow - if pt gets discharged - should get HD in AM at rehab 2. OM vs cellulitis- per podiatry, s/p BKA 3. hypotension- improved after blood transfusion and IV albumin 4. 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 DM care per medicine 6. anemia- iron sat 15%, ferritin 344 s/p 2 u prbc tx 7. replace vit d no need for alpha-d- 3 seen and examined w/ RN -telehealth visit Plan as above Attestations Medical Necessity Statement*: Awaiting placement Coding Level of Care Code Acute Code for Chg Fwd Diagnoses ESRD (end stage renal disease) on dialysis N18.6; Z99.2
--- NOTE | 2022-09-26 13:26 | US_ITS ---
WS: [id number] ULTRASOUND-GUIDED THERAPEUTIC PARACENTESIS Procedure, risks, and complications have been explained to the patient. Consent is obtained. Utilizing aseptic technique and 1% buffered lidocaine, a small dermatome was made through which a 5 F rench Yueh catheter was inserted. Approximately 7400 ml of clear peritoneal fluid was obtained witho ut difficulty. No complications encountered. US/[place] paracentesis abd w [id number] IMPRESSION: Uncomplicated paracentesis yielding 7400 ml of peritoneal fluid.
--- NOTE | 2022-09-26 15:53 | PC.OT ---
OT TREATMENT HELD TODAY DUE TO PARACENTESIS AT 1500 AND SCHEDULED D/C THEREAFTER.
[2022-09-26] MEDS: albumin 12.5 GM/250 ML VIAL IV (16:21)
[2022-09-26 17:49] LABS: Glucose Point of Care 126 mg/dL (70-110)
--- NOTE | 2022-09-29 16:50 | PC.NURSE ---
Spoke with Dr. Crane and he was unable to add d/c instructions prior to patient's d/c. I called and spoke with Kristina at [facility] and instructed her to change dressing as needed and of patient's f/u appointment on 10/09. She verbalizes understanding and denies further questions/concerns.
== END 2022-09-26 17:49 | DRG 239 ==
LOC: ER 16:28 → MEDSURG 19:02 → ICU 09-21 15:30 → MEDSURG 09-24 22:34
PROVIDERS: Internal Medicine Nephrology; Physician Assistant; Student in an Organized Health Care Education/Training Program; Admitting Provider Internal Medicine; Emergency Provider Family Medicine; PCP Internal Medicine; Visit Provider Internal Medicine
PROC: 0Y6J0Z1 Detachment at Left Lower Leg, High, Open Approach (ICD-10-PCS; CPT 27880; principal; 2022-09-21 11:00)
DX: E11.52 Type 2 diabetes mellitus with diabetic peripheral angiopathy with gangrene (principal); A48.0 Gas gangrene; N18.6 End stage renal disease; L97.424 Non-pressure chronic ulcer of left heel and midfoot with necrosis of bone; I12.0 Hypertensive chronic kidney disease with stage 5 chronic kidney disease or end stage renal disease; M86.9 Osteomyelitis, unspecified; L03.116 Cellulitis of left lower limb; R18.8 Other ascites; D62 Acute posthemorrhagic anemia; E66.2 Morbid (severe) obesity with alveolar hypoventilation; J96.12 Chronic respiratory failure with hypercapnia; J96.11 Chronic respiratory failure with hypoxia; E11.69 Type 2 diabetes mellitus with other specified complication; E11.621 Type 2 diabetes mellitus with foot ulcer; E11.42 Type 2 diabetes mellitus with diabetic polyneuropathy; E11.22 Type 2 diabetes mellitus with diabetic chronic kidney disease; Z99.2 Dependence on renal dialysis; D63.1 Anemia in chronic kidney disease; B95.62 Methicillin resistant Staphylococcus aureus infection as the cause of diseases classified elsewhere; Z79.891 Long term (current) use of opiate analgesic; J44.9 Chronic obstructive pulmonary disease, unspecified; Z99.81 Dependence on supplemental oxygen; Z91.199 Patient's noncompliance with other medical treatment and regimen due to unspecified reason; L84 Corns and callosities; E87.5 Hyperkalemia; L85.3 Xerosis cutis; M21.542 Acquired clubfoot, left foot; E87.70 Fluid overload, unspecified; Z86.74 Personal history of sudden cardiac arrest; L89.152 Pressure ulcer of sacral region, stage 2; E55.9 Vitamin D deficiency, unspecified; Z90.5 Acquired absence of kidney; Z87.01 Personal history of pneumonia (recurrent); Z68.36 Body mass index [BMI] 36.0-36.9, adult; Z85.528 Personal history of other malignant neoplasm of kidney; Z86.16 Personal history of COVID-19
CPT/HCPCS: 11042; 11044; 11047; 12345; 36415; 36416; 36430; 36569; 36592; 36600; 49083; 71045; 73590; 73630; 73701; 80048; 80053; 82306; 82310; 82728; 82962; 83540; 83550; 83605; 83735; 83970; 84100; 84145; 85014; 85018; 85025; 85651; 86140; 86850; 86900; 86920; 87040; 88307; 88311; 90935; 96360; 96365; 96372; 96375; 97110; 97162; 97165; 97530; 99285; A6210; J0878; J1100; J1170; J1644; J1815; J2060; J2250; J2270; J2370; J2405; J2543; J2704; J2710; J2795; J3010; J3490; J7030; J7040; P9016; P9040; P9045; P9046; P9047; Q3014; Q9967

== ENCOUNTER 2022-10-16 10:16 | Emergency (ER) | payer MEDICARE, MEDICAID, SELFPAY ==
[2022-10-16 10:17] VITALS: BP 138/63; PULSE 90; RESP 20; TEMP 36.6; O2SAT 92; BMI 36.5
[2022-10-16 10:52] VITALS: BP 138/63; PULSE 93; RESP 16; O2SAT 92
--- NOTE | 2022-10-16 10:56 | W.ED.EPISTAX ---
HPI - Epistaxis General: Chief complaint: Epistaxis Stated complaint: nosebleed Time Seen by Provider: 10/16/22 10:20 Source: patient Mode of arrival: EMS History of Present Illness: 52-year-old male history of end-stage renal disease. He was digitally manipulating inside of his nose and it started bleeding around 2 AM it is continually used since that time no large amounts of bleeding. Patient is not on any oral anticoagulants but does receive heparin flushes regularly for his fistula care. MD complaint: epistaxis Location: bilateral nostril Onset (ago): hour(s) Duration: intermittent Context: other anticoagulant use Associated symptoms: Deny fever(s), headache(s), sinus pain, syncope, vomiting or weakness Treatment prior to arrival: nose pinching Review of Systems Const: Denies: fever(s), chills, fatigue or malaise ENMT: Reports: epistaxis; Denies: sinus pain Card: Denies: chest pain, palpitations or syncope Resp: Denies: dyspnea, productive cough or non-productive cough GI: Denies: abdominal pain or vomiting : Denies: flank pain, dysuria, urinary frequency or urinary urgency Skin/Breast: Denies: rash or pruritus Neuro: Denies: headache(s) PFSH ED PFSH: Medical History Accelerated hypertension Acquired equinovarus deformity of left foot Anemia Anemia of chronic disease BMI 50.0-59.9, adult Cardiac arrest (~07/2020) when had covid Cellulitis CHF (congestive heart failure), NYHA class III Chronic respiratory failure with hypoxia and hypercapnia Chronic ulcer of left foot with fat layer exposed Chronic venous insufficiency COPD (chronic obstructive pulmonary disease) Diabetes Diabetic foot ulcers ESRD (end stage renal disease) on dialysis First degree heart block Foot osteomyelitis, left Fracture of fifth metatarsal bone of left foot Fracture of fourth metatarsal bone of left foot Fracture, thoracic vertebra T7-T8 Gas gangrene History of left below knee amputation History of renal cell carcinoma Hypertension Hypovolemic shock Lung nodule Morbid obesity with BMI of 40.0-44.9, adult Neuropathy Non-healing ulcer of right foot with fat layer exposed Non-pressure chronic ulcer of other part of right foot with necrosis of muscle Obesity hypoventilation syndrome Obstructive sleep apnea non compliant with home bipap/cpap Osteomyelitis Pneumonia due to 2019-nCoV (~07/2020) Pre-ulcerative calluses PVD (peripheral vascular disease) Renal cell carcinoma History bilateral renal cell carcinoma 2007 then recurrence on the contralateral side 2011. No recurrence for long-term follow-up with some suspicion on CT scan April 2020. Restrictive lung disease Type 2 diabetes mellitus with diabetic polyneuropathy 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 Ulcer of sacral region, stage 1 Urinary retention Vitamin D deficiency Xerosis of skin Surgical History H/O partial nephrectomy bilateral H/O wisdom tooth extraction History of cataract surgery Hx of lymph node excision Family History Father , at age 65 Diabetes Cancer Metastatic prostate cancer to liver Mother , at age 72 Diabetes Grandfather Diabetes Cancer Other Anemia Hyperlipidemia Social History Smoking and tobacco status: never smoked Second hand smoke exposure: Yes Smoking risk assessment/counseling performed?: Yes Alcohol intake: current Alcohol intake frequency: holidays/special occasions only Lives independently: Yes Household members: spouse Housing: House Marital status: service: No Current occupational status: retired Pets and animals: Yes Current gender identity: Male Physical Exam Const: GENERAL APPEARANCE: cooperative and comfortable ORIENTATION/CONSCIOUSNESS: Yes awake, Yes oriented to person, Yes oriented to place and Yes oriented to time HENMT: COMMON NORMALS: normocephalic, atraumatic and hearing grossly normal bilaterally HEAD & SCALP: normocephalic and atraumatic Resp: COMMON NORMALS: normal respiratory effort, No retractions, No use of accessory muscles and clear to auscultation bilaterally AUSCULTATION: clear to auscultation bilaterally Cardio: COMMON NORMALS: regular rate, regular rhythm and No murmurs present (Cardio) RATE: regular rate RHYTHM: regular rhythm GI: COMMON NORMALS: Soft to palpation and No hepatosplenomegaly present AUSCULTATION: Yes normoactive bowel sounds PALPATION: Yes Soft to palpation, No Tenderness to palpation present (GI), No Guarding due to palpation present (GI) and Yes No hepatosplenomegaly present Extremity: COMMON NORMALS: normal to inspection, capillary refill normal, no clubbing, cyanosis or edema, no calf tenderness and no pedal edema Neuro: SENSORIUM/ORIENTATION: Yes oriented to person, Yes oriented to place and Yes oriented to time Skin: COMMON NORMALS: no rashes or lesions noted GENERAL SKIN EXAM: no rashes or lesions noted Course Vital Signs: Vital signs: Vital Signs Temperature 97.8 F 10/16/22 10:17 Pulse Rate 93 10/16/22 10:52 Respiratory Rate 16 10/16/22 10:52 Blood Pressure 138/63 10/16/22 10:52 Pulse Oximetry 92 10/16/22 10:52 Oxygen Delivery Me thod 10/16/22 10:52 MDM - Epistaxis Medical Decision Making Epistaxes direct pressure and did not completely resolve it. Afrin nasal spray used after expressing a large clot then direct pressure reapplied with a nose clamp. After this patient's epistaxis had resolved. We will discharge him home topical antibiotic in the nares twice daily follow-up as needed. Medical Records I reviewed the patient's medical records. Lab Data I reviewed the patient's lab results. Discharge Plan Discharge Patient Disposition: Home Clinical Impression: Epistaxis Condition: Stable Prescriptions: New bacitracin 500 unit/gram ointment 1 applic topical BID Qty: 14 0RF Rx Instructions: Apply inside the nares gently with a Q-tip twice daily No Action (DME) Wheel Chair See Rx Instructions .Route .MEDSUPPLY Qty: 1 0RF Rx Instructions: As directed HOME (DME) Compression Stockings See Rx Instructions .Route .MEDSUPPLY Qty: 1 0RF Rx Instructions: As directed (DME) [place] boot modification See Rx Instructions .Route .MEDSUPPLY Qty: 1 0RF Rx Instructions: Straps are failing trazodone 50 mg tablet 50 mg PO BEDTIME ropinirole 0.25 mg tablet 0.25 mg PO BEDTIME PRN (Reason: Restless Leg(S)) Lokelma 5 gram powder in packet See Rx Instructions .ROUTE .COMPLEX Rx Instructions: 1 packet po daily on , , Sun, Sun - mix with 45 mL of water, drink immediately give other medications 2 hrs before or after this medication oxycodone 5 mg Tablet 5 mg PO Q4H PRN (Reason: Pain) ondansetron HCl 4 mg tablet 4 mg PO Q4H PRN (Reason: Nausea) cholecalciferol (vitamin D3) [Vitamin D3] 25 mcg (1,000 unit) Tablet 25 mcg PO QAM lidocaine-prilocaine 2.5-2.5 % cream See Rx Instructions .ROUTE .COMPLEX Rx Instructions: use as directed sevelamer carbonate 800 mg tablet See Rx Instructions .ROUTE .COMPLEX Rx Instructions: 5 tabs po tid with meals and 4 tabs po bid with snacks atorvastatin 80 mg Tablet 80 mg PO DAILY Effexor XR 75 mg Capsule,Extended Release 24hr 75 mg PO DAILY famotidine 10 mg Tablet 10 mg PO DAILY Ferrex 150 150 mg iron Capsule 150 mg PO DAILY prochlorperazine 25 mg Suppository 25 mg ME BID PRN (Reason: Nausea) Dulcolax (bisacodyl) 10 mg Suppository 10 mg ME DAILY PRN (Reason: Constipation) pantoprazole 40 mg Tablet,Delayed Release (Dr/Ec) 40 mg PO DAILY Fleet Enema 19-7 gram/118 mL Enema 118 ml ME DAILY PRN (Reason: Constipation) folic acid 1 mg Tablet 1 mg PO DAILY hydroxyzine HCl 25 mg Tablet 25 mg PO Q6H PRN (Reason: Anxiety) gabapentin 100 mg Capsule 200 mg PO TID Mylanta 200-200-20 mg/5 mL Suspension 30 ml PO Q4H PRN (Reason: GERD) Rx Instructions: administer between meals Miralax 17 gram/dose Powder 17 g PO BID albuterol sulfate 90 mcg/actuation Hfa Aerosol Inhaler 2 puff INHALATION QID PRN (Reason: Shortness Of Breath) Vitamin B and C Capsule 1 cap PO DAILY Afrin (oxymetazoline) 0.05 % Mist 2 spray INTRANASAL Q12H PRN (Reason: Allergy Symptoms) Saccharomyces boulardii 250 mg Capsule 250 mg PO BID brexpiprazole 0.25 mg Tablet 0.25 mg PO DAILY Benadryl Allergy 25 mg tablet 25 mg PO DAILY PRN (Reason: itching) Discharge Orders: Discharge ED (Routine); Ordered 10/16/22 Ordered By: Jerry Bradford Referrals: Sulma Wetzel MD [Primary Care Provider] - Discharge Diet: Usual diet Discharge Activity: Resume usual activity Patient Instructions: Opioid Safety, Pain Management Activity Restrictions/Additional Instructions: You were seen today for a nosebleed. Recommend that you apply the topical antibiotic ointment twice daily inside the nares gently with a Q-tip for at least 1 week. Coding Level of Care Code ED Supervisor [employer] for Patricia Reid
[2022-10-16] MEDS: oxymetazoline 0.05% Nasal Spray 15 mL 2 SPRAY NOSTRIL-B (11:45)
== END 2022-10-16 13:22 | disposition home or self-care (01) ==
PROVIDERS: Emergency Provider Family Medicine; PCP Internal Medicine
DX: R04.0 Epistaxis (principal); I13.2 Hypertensive heart and chronic kidney disease with heart failure and with stage 5 chronic kidney disease, or end stage renal disease; E11.22 Type 2 diabetes mellitus with diabetic chronic kidney disease; N18.6 End stage renal disease; I50.9 Heart failure, unspecified; J44.9 Chronic obstructive pulmonary disease, unspecified; Z89.512 Acquired absence of left leg below knee; Z85.528 Personal history of other malignant neoplasm of kidney; Z77.22 Contact with and (suspected) exposure to environmental tobacco smoke (acute) (chronic); I97.89 Other postprocedural complications and disorders of the circulatory system, not elsewhere classified; I96 Gangrene, not elsewhere classified
CPT/HCPCS: 99024; 99283

== ENCOUNTER 2022-10-25 11:48 | Day surgery (SDC) | payer MEDICARE, MEDICAID, SELFPAY ==
[2022-10-23 11:56] VITALS: BMI 23.7
--- NOTE | 2022-10-25 11:55 | US_ITS ---
WS: [id number] ULTRASOUND-GUIDED THERAPEUTIC PARACENTESIS Procedure, risks, and complications have been explained to the patient. Consent is obtained. Utilizing aseptic technique and 1% buffered lidocaine, a small dermatome was made through which a 5 F rench Yueh catheter was inserted. Approximately 10,200 ml of clear peritoneal fluid was obtained wit hout difficulty. No complications encountered. US/US paracentesis abd w [id number] IMPRESSION: Uncomplicated paracentesis yielding 10,200 ml of peritoneal fluid.
[2022-10-25 12:01] VITALS: BP 137/78; PULSE 87; RESP 18; TEMP 36.4; O2SAT 92
[2022-10-25] MEDS: albumin 75 G/300 ML BAG 999 G IV (12:56)
== END 2022-10-25 14:05 | disposition home or self-care (01) ==
LOC: GILAB 11:50
PROVIDERS: PCP Internal Medicine; Visit Provider Internal Medicine Nephrology
PROC: (CPT 49082; principal; 2022-10-25 12:00)
DX: R18.8 Other ascites (principal)
CPT/HCPCS: 49083; P9046

== ENCOUNTER → 2022-10-31 13:37 | Day surgery (SDC) | payer MEDICARE, MEDICAID, SELFPAY ==
[2022-10-31 13:51] VITALS: BP 110/66; PULSE 83; RESP 20; TEMP 36.7; O2SAT 93
--- NOTE | 2022-10-31 13:56 | US_ITS ---
WS: [id number] ULTRASOUND-GUIDED PARACENTESIS CLINICAL INFORMATION: ascites COMPARISON: None. Procedure Informed consent: The risks, benefits, and alternatives of the procedure were discussed with the riya ent. Verbal and written consent was obtained. Timeout: A timeout was performed to confirm the correct patient, procedure, and site. Preparation: A suitable skin site was identified. The patient was prepped and draped in usual sterile fashion. Lidocaine 1% was used for local anesthesia. Catheter: 4 Turkish One-step Yueh catheter. Side: RIGHT Lower quadrant. Fluid Volume: 7000 ml Color: Clear yellow DISPOSITION: Discarded safely. Complications: None. Patient disposition: Discharged from the department in stable condition. US/US paracentesis abd w [id number] IMPRESSION: Uncomplicated ultrasound-guided paracentesis. Removal of 7,000cc
[2022-10-31 15:06] VITALS: BMI 33.1
== END | disposition home or self-care (01) ==
PROVIDERS: Radiology Neuroradiology; PCP Internal Medicine; Visit Provider Radiology Radiation Oncology
PROC: (CPT 49082; principal; 2022-10-31 13:00)
DX: R18.8 Other ascites (principal)
CPT/HCPCS: 49083

== ENCOUNTER 2022-11-08 10:58 | Day surgery (SDC) | payer MEDICARE, MEDICAID, SELFPAY ==
[2022-11-08 11:18] VITALS: BP 128/71; PULSE 86; RESP 20; TEMP 36.6; O2SAT 91
--- NOTE | 2022-11-08 11:20 | US_ITS ---
WS: [id number] ULTRASOUND-GUIDED THERAPEUTIC PARACENTESIS Procedure, risks, and complications have been explained to the patient. Consent is obtained. Utilizing aseptic technique and 1% buffered lidocaine, a small dermatome was made through which a 5 F rench Yueh catheter was inserted. Approximately 5600 ml of clear peritoneal fluid was obtained witho ut difficulty. No complications encountered. US/US paracentesis abd w [id number] IMPRESSION: Uncomplicated paracentesis yielding 5600 ml of peritoneal fluid.
[2022-11-08] MEDS: albumin 75 G/300 ML BAG 60 G IV (12:10)
== END 2022-11-08 13:10 | disposition home or self-care (01) ==
LOC: GILAB 11:00
PROVIDERS: PCP Internal Medicine; Visit Provider Internal Medicine Nephrology
PROC: (CPT 49082; principal; 2022-11-08 12:30)
DX: R18.8 Other ascites (principal)
CPT/HCPCS: 49083; P9046

== ENCOUNTER 2022-11-20 14:37 | Inpatient (IN) | payer MEDICARE, MEDICAID, SELFPAY ==
[2022-11-20] VITALS (22 sets, daily range): BP systolic 111–154; BP diastolic 66–93; PULSE 86–113; RESP 16–17; TEMP 36.6–37; O2SAT 90–100
--- NOTE | 2022-11-20 15:09 | ED_ITS ---
Documented by User: VERO Kamara 11/21/22 06:52 HPI - Extremity Problem General: Chief complaint: Extremity Problem,Nontraumatic Stated complaint: FOOT PAIN Time Seen by Provider: 11/20/22 14:46 History of Present Illness: Patient is a 52-year-old male who comes to the ED with right foot and ankle pain. Patient has history of left below-knee amputation, hypertension, diabetes, diabetic foot ulcers, end-stage renal disease and is on dialysis, CHF and peripheral vascular disease. Patient is a resident at [facility] and was sent here to the ED for further evaluation of right foot pain and swelling. Patient says most of his pain is in his right foot and ankle. Patient denies any injury or trauma but states that he tried standing and weightbearing on his right foot for the first time several days ago and since then he has been having pain in his right foot and ankle. Patient has a wound on right foot as well. He says he got wound out a week ago when the callus was removed. Associated symptoms: Deny chest pain, fever(s) or rash Review of Systems Const: Denies: fever(s), chills or fatigue Eyes: Denies: change in vision or eye discomfort ENMT: Denies: throat pain, odynophagia, nasal discharge or nasal congestion Card: Denies: chest pain, palpitations, edema, swelling of feet/ankles, dyspnea on exertion or orthopnea Resp: Denies: dyspnea, productive cough or non-productive cough GI: Denies: abdominal pain, nausea, vomiting, diarrhea, constipation or hematochezia : Denies: flank pain, difficulty urinating, dysuria or hematuria Musc: Reports: extremity pain (Right foot) and extremity swelling (Right foot); Denies: neck pain or back pain Skin/Breast: Denies: rash or new lesions Neuro: Denies: headache(s), numbness in extremities or weakness in extremities [facility] ED PFSH: Medical History (Updated 11/28/22 @ 14:34 by Brady Jenkins DPM) Accelerated hypertension Acquired equinovarus deformity of left foot Anemia Anemia of chronic disease BMI 50.0-59.9, adult Cardiac arrest (~07/2020) when had covid Cellulitis Cellulitis CHF (congestive heart failure), NYHA class III Chronic osteomyelitis of right foot Chronic respiratory failure with hypoxia and hypercapnia Chronic ulcer of left foot with fat layer exposed Chronic venous insufficiency COPD (chronic obstructive pulmonary disease) Diabetes Diabetic foot ulcers 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, limited to breakdown of skin ESRD (end stage renal disease) on dialysis First degree heart block Foot osteomyelitis, left Foot osteomyelitis, right Fracture of fifth metatarsal bone of left foot Fracture of fourth metatarsal bone of left foot Fracture, thoracic vertebra T7-T8 Gas gangrene History of left below knee amputation History of renal cell carcinoma Hypertension Hypovolemic shock Lung nodule Morbid obesity with BMI of 40.0-44.9, adult Neuropathy Non-healing ulcer of right foot with fat layer exposed Non-pressure chronic ulcer of other part of right foot with necrosis of muscle Obesity hypoventilation syndrome Obstructive sleep apnea non compliant with home bipap/cpap Osteomyelitis Osteomyelitis Pneumonia due to 2019-nCoV (~07/2020) Pre-ulcerative calluses PVD (peripheral vascular disease) Renal cell carcinoma History bilateral renal cell carcinoma 2007 then recurrence on the contralateral side 2011. No recurrence for long-term follow-up with some suspicion on CT scan April 2020. Restrictive lung disease Type 2 diabetes mellitus Type 2 diabetes mellitus with diabetic polyneuropathy 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 Ulcer of sacral region, stage 1 Urinary retention Vitamin D deficiency Xerosis of skin Surgical History H/O partial nephrectomy bilateral H/O wisdom tooth extraction History of cataract surgery Hx of lymph node excision Status post below-knee amputation of left lower extremity Family History Father , at age 65 Diabetes Cancer Metastatic prostate cancer to liver Mother , at age 72 Diabetes Grandfather Diabetes Cancer Other Anemia Hyperlipidemia Social History Smoking and tobacco status: never smoked Second hand smoke exposure: Yes Smoking risk assessment/counseling performed?: Yes Alcohol intake: current Alcohol intake frequency: holidays/special occasions only Substance/Drug Use: never Lives independently: Yes Household members: spouse Housing: House Marital status: service: No Current occupational status: retired Pets and animals: Yes Do you think of yourself as: Straight/Heterosexual Current gender identity: Male Physical Exam Const: COMMON NORMALS: patient oriented x3 HENMT: COMMON NORMALS: normocephalic HEAD & SCALP: normocephalic MOUTH: Normal oral and palatal mucosa present THROAT: posterior oropharynx normal and uvula midline Neck/C-Spine: COMMON NORMALS: supple GENERAL: Yes normal visual inspection Resp: COMMON NORMALS: normal respiratory effort, No retractions, No use of accessory muscles and clear to auscultation bilaterally AUSCULTATION: clear to auscultation bilaterally Cardio: COMMON NORMALS: regular rate, regular rhythm, S1 normal heart sound present, S2 normal heart sound present, No gallops present (Cardio), No clicks present (Cardio), No murmurs present (Cardio) and Peripheral pulses 2+ throughout RATE: regular rate RHYTHM: regular rhythm HEART SOUNDS: S1 normal heart sound present and S2 normal heart sound present PERIPHERAL PULSES: Peripheral pulses 2+ throughout GI: COMMON NORMALS: Normal to inspection, nondistended, normoactive bowel sounds present, Soft to palpation, non-tender and no masses PALPATION: Yes Soft to palpation : COMMON NORMALS: Yes no CVA tenderness BLADDER/KIDNEY EXAM: Yes no CVA tenderness Back/Pelvis: COMMON NORMALS: no CVA tenderness Extremity: NARRATIVE EXTREMITY EXAM: Below-knee amputation of left leg. Right foot has superficial wound on the lateral midfoot region. No visible purulent drainage seen. Palpable abscess underneath wound on foot. Foot is swollen, warm and erythemic. Neuro: COMMON NORMALS: patient oriented x3 GAIT: Yes Normal gait present Skin: GENERAL SKIN EXAM: dry skin Course Vital Signs: Vital signs: Vital Signs Temperature 98.6 F 11/21/22 12:06 Pulse Rate 86 11/21/22 12:06 Respiratory Rate 18 11/21/22 12:06 Blood Pressure 123/74 11/21/22 12:06 Pulse Oximetry 96 11/21/22 08:57 Oxygen Delivery Me thod Nasal Cannula 11/21/22 08:57 Oxygen Flow Rate 2 11/21/22 08:57 MDM - Extremity (Nontraumatic) Medical Decision Making Patient is a 52-year-old male who comes to the ED with right foot and ankle pain. Patient has history of left below-knee amputation, hypertension, diabetes, diabetic foot ulcers, end-stage renal disease and is on dialysis, CHF and peripheral vascular disease. Patient is a resident at [facility] and was sent here to the ED for further evaluation of right foot pain and swelling. Patient says most of his pain is in his right foot and ankle. Patient denies any injury or trauma but states that he tried standing and weightbearing on his right foot for the first time several days ago and since then he has been having pain in his right foot and ankle. Patient has a wound on right foot as well. He says he got wound out a week ago when the callus was removed. Vitals are stable. Patient has below-knee amputation of the left leg. Right foot has superficial wound on the lateral midfoot region. No visible purulent drainage seen. Palpable abscess underneath wound on foot. Foot is swollen, warm and erythemic. Right foot x-ray showed osseous destruction of the proximal fifth metatarsal with soft tissue mass most likely representing acute osteomyelitis. No other acute findings noted. Dr. Payne will be taking over care of patient for likely admission for acute osteo myelitis of the right foot. Dr. Crane notified about patient case and he spoke with Dr. Jenkins milk sampler and he will be consulting on patient. Lab Data I reviewed the patient's lab results. 11/21/22 05:25 11/21/22 05:25 Radiology Impressions Ankle X-Ray 11/20/22 15:13 IMPRESSION: 1. Mild degenerative change. No fracture or dislocation. Soft tissue swelling about the ankle. Foot X-Ray 11/20/22 15:13 IMPRESSION: 1. Osseous destruction of the proximal fifth metatarsal with soft tissue mass almost surely representing acute osteomyelitis. There may be an associated abscess present. 2. No other sign of bone destruction or acute fracture. Chronic PIP joint dislocation of the second toe. Degenerative changes in the midfoot joints. Laboratory Results WBC 6.0 10^3/uL (4.0-10.0) 11/20/22 16:25 RBC 3.02 10^6/uL (4.1-5.3) L 11/20/22 16:25 Hgb 8.5 g/dL (11.7-16.6) L 11/20/22 16:25 Hct 28.5 % (42.0-52.0) L 11/20/22 16: MCV 94.4 fl (80-94) H 11/20/22 16:25 MCH 28.1 pg (28.0-34.0) 11/20/22 16:25 MCHC 29.8 g/dL (30.0-36.0) L 11/20/22 16:25 RDW 15.7 % (12.1-15.1) H 11/20/22 16:25 Plt Count 201 10^3/cmm (130-400) 11/20/22 16:25 MPV 9.7 fL (7.4-10.4) 11/20/22 16:25 Neut % (Auto) 71.8 % 11/20/22 16:25 Lymph % (Auto) 11.4 % 11/20/22 16:25 [place] % (Auto) 11.0 % 11/20/22 16:25 Eos % (Auto) 4.8 % 11/20/22 16:25 Baso % (Auto) 0.8 % 11/20/22 16:25 Neut # (Auto) 4.29 10^3/uL (1.8-7.7) 11/20/22 16:25 Lymph # (Auto) 0.7 10^3/uL (0.8-4.8) L 11/20/22 16:25 [place] # (Auto) 0.7 10^3/uL (0.2-0.9) 11/20/22 16:25 Eos # (Auto) 0.3 10^3/uL (0.0-0.8) 11/20/22 16:25 Baso # (Auto) 0.1 10^3/uL (0.0-0.1) 11/20/22 16:25 Nucleated RBC % (auto) 0 % 11/20/22 16:25 Nucleated RBCs # 0.0 /100WBC 11/20/22 16:25 ESR 89 mm/hr (0-10) H 11/20/22 16:25 Sodium 130 mmol/L (136-145) L 11/20/22 16:25 Potassium 5.6 mmol/L (3.5-5.1) H 11/20/22 16:25 Chloride 87 mmol/L (98-107) L 11/20/22 16:25 Carbon Dioxide 27 mmol/L (22-29) 11/20/22 16:25 Anion Gap 21.6 (5-19) H 11/20/22 16:25 BUN 44 mg/dL (6-20) H 11/20/22 16:25 Creatinine 4.4 mg/dL (0.7-1.2) H 11/20/22 16:25 GFR Calculation 14.2 mL/min (90-130) L 11/20/22 16:25 Glucose 107 mg/dL (65-115) 11/20/22 16:25 Calculated Osmolality 282 mOsm/kg (285-295) L 11/20/22 16:25 Lactic Acid 1.5 mmol/L (0.5-2.2) 11/20/22 16:25 Uric Acid 3.9 mg/dL (3.4-7.0) 11/20/22 16:25 Calcium 8.5 mg/dL (8.5-10.5) 11/20/22 16:25 Total Bilirubin 0.5 mg/dL (0.15-1.2) 11/20/22 16:25 AST 13 U/L (0-40) 11/20/22 16:25 ALT 7 U/L (0-41) 11/20/22 16:25 Alkaline Phosphatase 124 U/L (40-130) 11/20/22 16:25 C-Reactive Protein 62.8 mg/L (0.0-4.9) H 11/20/22 16:25 Total Protein 8.3 g/dL (6.6-8.7) 11/20/22 16:25 Albumin 3.1 g/dL (3.5-5.2) L 11/20/22 16:25 Globulin 5.2 g/dL (1.3-4.6) H 11/20/22 16:25 Hep Bs Antigen Non-reactive (Nonreactive) 11/20/22 16:25 Hep Bs Antibody 44.4 (11.5-1000) 11/20/22 16:25 Hepatitis C Antibody Non-reactive (Nonreactive) 11/20/22 16:25 Discharge Plan Discharge Patient Disposition: Admitted As Inpatient Admit Provider: Chris Johansen Clinical Impression: Cellulitis, Osteomyelitis Condition: Stable Sign Out Sign Out Data: Patient Sign Out occurred on 11/20/22 at 17:29. Patient's care was discussed, and care was transferred from to Rohit Payne MD. Coding Level of Care Code ED [employer] for [employer]g Fwd Documented by User: Rohit Payne MD 12/07/22 20:50 HPI - Extremity Problem General: Chief complaint: Extremity Problem,Nontraumatic Stated complaint: FOOT PAIN Time Seen by Provider: 11/20/22 14:46 PFSH ED PFSH: Medical History (Updated 11/28/22 @ 14:34 by Brady Jenkins DPM) Accelerated hypertension Acquired equinovarus deformity of left foot Anemia Anemia of chronic disease BMI 50.0-59.9, adult Cardiac arrest (~07/2020) when had covid Cellulitis Cellulitis CHF (congestive heart failure), NYHA class III Chronic osteomyelitis of right foot Chronic respiratory failure with hypoxia and hypercapnia Chronic ulcer of left foot with fat layer exposed Chronic venous insufficiency COPD (chronic obstructive pulmonary disease) Diabetes Diabetic foot ulcers 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, limited to breakdown of skin ESRD (end stage renal disease) on dialysis First degree heart block Foot osteomyelitis, left Foot osteomyelitis, right Fracture of fifth metatarsal bone of left foot Fracture of fourth metatarsal bone of left foot Fracture, thoracic vertebra T7-T8 Gas gangrene History of left below knee amputation History of renal cell carcinoma Hypertension Hypovolemic shock Lung nodule Morbid obesity with BMI of 40.0-44.9, adult Neuropathy Non-healing ulcer of right foot with fat layer exposed Non-pressure chronic ulcer of other part of right foot with necrosis of muscle Obesity hypoventilation syndrome Obstructive sleep apnea non compliant with home bipap/cpap Osteomyelitis Osteomyelitis Pneumonia due to 2019-nCoV (~07/2020) Pre-ulcerative calluses PVD (peripheral vascular disease) Renal cell carcinoma History bilateral renal cell carcinoma 2007 then recurrence on the contralateral side 2011. No recurrence for long-term follow-up with some suspicion on CT scan April 2020. Restrictive lung disease Type 2 diabetes mellitus Type 2 diabetes mellitus with diabetic polyneuropathy 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 Ulcer of sacral region, stage 1 Urinary retention Vitamin D deficiency Xerosis of skin Surgical History H/O partial nephrectomy bilateral H/O wisdom tooth extraction History of cataract surgery Hx of lymph node excision Status post below-knee amputation of left lower extremity Family History Father , at age 65 Diabetes Cancer Metastatic prostate cancer to liver Mother , at age 72 Diabetes Grandfather Diabetes Cancer Other Anemia Hyperlipidemia Social History Smoking and tobacco status: never smoked Second hand smoke exposure: Yes Smoking risk assessment/counseling performed?: Yes Alcohol intake: current Alcohol intake frequency: holidays/special occasions only Substance/Drug Use: never Lives independently: Yes Household members: spouse Housing: House Marital status: service: No Current occupational status: retired Pets and animals: Yes Do you think of yourself as: Straight/Heterosexual Current gender identity: Male Course Vital Signs: Vital signs: Vital Signs Temperature 98.6 F 11/21/22 12:06 Pulse Rate 86 11/21/22 12:06 Respiratory Rate 18 11/21/22 12:06 Blood Pressure 123/74 11/21/22 12:06 Pulse Oximetry 96 11/21/22 08:57 Oxygen Delivery Me thod Nasal Cannula 11/21/22 08:57 Oxygen Flow Rate 2 11/21/22 08:57 MDM - Extremity (Nontraumatic) Medical Decision Making Patient is a 52-year-old male who comes to the ED with right foot and ankle pain . Patient has history of left below-knee amputation, hypertension, diabetes, diabetic foot ulcers, end-stage renal disease and is on dialysis, CHF and peripheral vascular disease. Patient is a resident at [facility] and was sent here to the ED for further evaluation of right foot pain and swelling. Patient says most of his pain is in his right foot and ankle. Patient denies any injury or trauma but states that he tried standing and weightbearing on his right foot for the first time several days ago and since then he has been having pain in his right foot and ankle. Patient has a wound on right foot as well. He says he got wound out a week ago when the callus was removed. Vitals are s table. Patient has below-knee amputation of the left leg. Right foot has superficial wound on the lateral midfoot region. No visible purulent drainage seen. Palpable abscess underneath wound on foot. Foot is swollen, warm and erythemic. Right foot x-ray showed osseous destruction of the proximal fifth metatarsal with soft tissue mass most likely representing acute osteomyelitis. No other acute findings noted. Dr. Payne will be taking over care of patient for likely admission for acute osteo myelitis of the right foot. Dr. Crane notified about patient case and he spoke with Dr. Jenkins milk sampler and he will be consulting on patient. I discussed this patient with VERO Kamara. I personally saw and evaluated the patient and reperformed diane portions of E/M. Laboratory studies and imaging reviewed. Patient is concerning for osteomyelitis. He requires inpatient treatment. The results of ED evaluation were discussed with the patient including plan for admission due to requirement for level of care not available if discharged to prevent significant worsening/deterioration. Patient agreeable with plan. Discussed with hospitalist service who was agreeable to admit patient. Rohit Payne MD Emergency Medicine Lab Data 11/21/22 05:25 11/21/22 05:25 Radiology Impressions Ankle X-Ray 11/20/22 15:13 IMPRESSION: 1. Mild degenerative change. No fracture or dislocation. Soft tissue swelling about the ankle. Foot X-Ray 11/20/22 15:13 IMPRESSION: 1. Osseous destruction of the proximal fifth metatarsal with soft tissue mass almost surely representing acute osteomyelitis. There may be an associated abscess present. 2. No other sign of bone destruction or acute fracture. Chronic PIP joint dislocation of the second toe. Degenerative changes in the midfoot joints. Laboratory Results WBC 6.0 10^3/uL (4.0-10.0) 11/20/22 16:25 RBC 3.02 10^6/uL (4.1-5.3) L 11/20/22 16:25 Hgb 8.5 g/dL (11.7-16.6) L 11/20/22 16:25 Hct 28.5 % (42.0-52.0) L 11/20/22 16:25 MCV 94.4 fl (80-94) H 11/20/22 16:25 MCH 28.1 pg (28.0-34.0) 11/20/22 16:25 MCHC 29.8 g/dL (30.0-36.0) L 11/20/22 16:25 RDW 15.7 % (12.1-15.1) H 11/20/22 16:25 Plt Count 201 10^3/cmm (130-400) 11/20/22 16:25 MPV 9.7 fL (7.4-10.4) 11/20/22 16:25 Neut % (Auto) 71.8 % 11/20/22 16:25 Lymph % (Auto) 11.4 % 11/20/22 16:25 [place] % (Auto) 11.0 % 11/20/22 16:25 Eos % (Auto) 4.8 % 11/20/22 16:25 Baso % (Auto) 0.8 % 11/20/22 16:25 Neut # (Auto) 4.29 10^3/uL (1.8-7.7) 11/20/22 16:25 Lymph # (Auto) 0.7 10^3/uL (0.8-4.8) L 11/20/22 16:25 [place] # (Auto) 0.7 10^3/uL (0.2-0.9) 11/20/22 16:25 Eos # (Auto) 0.3 10^3/uL (0.0-0.8) 11/20/22 16:25 Baso # (Auto) 0.1 10^3/uL (0.0-0.1) 11/20/22 16:25 Nucleated RBC % (auto) 0 % 11/20/22 16:25 Nucleated RBCs # 0.0 /100WBC 11/20/22 16:25 ESR 89 mm/hr (0-10) H 11/20/22 16:25 Sodium 130 mmol/L (136-145) L 11/20/22 16:25 Potassium 5.6 mmol/L (3.5-5.1) H 11/20/22 16:25 Chloride 87 mmol/L (98-107) L 11/20/22 16:25 Carbon Dioxide 27 mmol/L (22-29) 11/20/22 16:25 Anion Gap 21.6 (5-19) H 11/20/22 16:25 BUN 44 mg/dL (6-20) H 11/20/22 16:25 Creatinine 4.4 mg/dL (0.7-1.2) H 11/20/22 16:25 GFR Calculation 14.2 mL/min (90-130) L 11/20/22 16:25 Glucose 107 mg/dL (65-115) 11/20/22 16:25 Calculated Osmolality 282 mOsm/kg (285-295) L 11/20/22 16:25 Lactic Acid 1.5 mmol/L (0.5-2.2) 11/20/22 16:25 Uric Acid 3.9 mg/dL (3.4-7.0) 11/20/22 16:25 Calcium 8.5 mg/dL (8.5-10.5) 11/20/22 16:25 Total Bilirubin 0.5 mg/dL (0.15-1.2) 11/20/22 16:25 AST 13 U/L (0-40) 11/20/22 16:25 ALT 7 U/L (0-41) 11/20/22 16:25 Alkaline Phosphatase 124 U/L (40-130) 11/20/22 16:25 C-Reactive Protein 62.8 mg/L (0.0-4.9) H 11/20/22 16:25 Total Protein 8.3 g/dL (6.6-8.7) 11/20/22 16:25 Albumin 3.1 g/dL (3.5-5.2) L 11/20/22 16:25 Globulin 5.2 g/dL (1.3-4.6) H 11/20/22 16:25 Hep Bs Antigen Non-reactive (Nonreactive) 11/20/22 16:25 Hep Bs Antibody 44.4 (11.5-1000) 11/20/22 16:25 Hepatitis C Antibody Non-reactive (Nonreactive) 11/20/22 16:25 Discharge Plan Discharge Patient Disposition: Admitted As Inpatient Admit Provider: Chris Johansen Clinical Impression: Cellulitis, Osteomyelitis Condition: Stable Sign Out Sign Out Data: Patient Sign Out occurred on 11/20/22 at 17:29. Patient's care was discussed, and care was transferred from to Rohit Payne MD. Coding Level of Care Code ED [employer] for Patricia Reid
--- NOTE | 2022-11-20 15:13 | XR_ITS ---
WS: [id number] Exam: XR foot RT min 3V* [id number] Date/Time of Exam: 11/20/2022 3:17 PM Reason For Exam: right foot pain and wound Comparison 08/11/2021. There is osseous destruction of the proximal fifth metatarsal with soft tissue swelling most likely r epresenting acute osteomyelitis. Underlying abscess would be a consideration. No other sign of fractu re or bone destruction. Chronically dislocated second PIP joint. Vascular calcifications about the fo ot and ankle. Posterior heel spur. Soft tissue swelling of the foot. DJD of the midfoot joints. XR/XR foot RT min 3V* [id number] IMPRESSION: 1. Osseous destruction of the proximal fifth metatarsal with soft tissue mass a lmost surely representing acute osteomyelitis. There may be an associated absce ss present. 2. No other sign of bone destruction or acute fracture. Chronic PIP joint dislo cation of the second toe. Degenerative changes in the midfoot joints.
--- NOTE | 2022-11-20 15:13 | XR_ITS ---
WS: [id number] Exam: XR ankle RT min 3V* [id number] Date/Time of Exam: 11/20/2022 3:17 PM Reason For Exam: right ankle pain No acute ankle fracture or dislocation. Mild degenerative change of the ankle mortise. Extensive vasc ular calcification in the soft tissues about the ankle. XR/XR ankle RT min 3V* [id number] IMPRESSION: 1. Mild degenerative change. No fracture or dislocation. Soft tissue swelling a bout the ankle.
[2022-11-20 16:52] LABS: Basophils # 0.1 10^3/uL (0.0-0.1); Basophils % 0.8 %; Eosinophils # 0.3 10^3/uL (0.0-0.8); Eosinophils % 4.8 %; Hematocrit 28.5 % (42.0-52.0); Hemoglobin 8.5 g/dL (11.7-16.6); Lymphocytes # 0.7 10^3/uL (0.8-4.8); Lymphocytes % 11.4 %; Mean Corpuscular HGB Conc 29.8 g/dL (30.0-36.0); Mean Corpuscular Hemoglobin 28.1 pg (28.0-34.0); Mean Corpuscular Volume 94.4 fl (80-94); Mean Platelet Volume 9.7 fL (7.4-10.4); Monocytes # 0.7 10^3/uL (0.2-0.9); Neutrophils # 4.29 10^3/uL (1.8-7.7); Neutrophils % 71.8 %; Nucleated Red Blood Cells % 0 %; Platelet Count 201 10^3/cmm (130-400); Red Blood Count 3.02 10^6/uL (4.1-5.3); Red Cell Distribution Width 15.7 % (12.1-15.1)
[2022-11-20] MEDS: piperacillin-tazobactam 3.375 GM in sodium chloride 0.9% (plus) 50 ML IV ×2 (17:22→22:15)
[2022-11-20 17:25] LABS: Lactic Sepsis W/Reflex 1.5 mmol/L (0.5-2.2)
[2022-11-20 17:26] LABS: Alanine Aminotransferase 7 U/L (0-41); Albumin Level 3.1 g/dL (3.5-5.2); Alkaline Phosphatase 124 U/L (40-130); Anion Gap 21.6 (5-19); Aspartate Amino Transferase 13 U/L (0-40); Blood Urea Nitrogen 44 mg/dL (6-20); C Reactive Protein 62.8 mg/L (0.0-4.9); Calcium 8.5 mg/dL (8.5-10.5); Carbon Dioxide 27 mmol/L (22-29); Chloride 87 mmol/L (98-107); Globulin 5.2 g/dL (1.3-4.6); Glomerular Filtration Rate 14.2 mL/min (90-130); Glucose 107 mg/dL (65-115); Osmolality Calculated 282 mOsm/kg (285-295); Potassium 5.6 mmol/L (3.5-5.1); Sodium 130 mmol/L (136-145); Total Bilirubin 0.5 mg/dL (0.15-1.2); Total Protein 8.3 g/dL (6.6-8.7)
[2022-11-20 17:34] LABS: Erythrocyte Sedimentation Rate 89 mm/hr (0-10)
[2022-11-20] MEDS: ondansetron 2 mg/ML SDV 2 mL 4 MG IVP (17:37)
--- NOTE | 2022-11-20 17:53 | PC.NURSE ---
Pt reported increased shortness of breath, tightness in his chest and some left arm numbness. EKG was done after notification of symptoms. Dr. Payne notified.
[2022-11-20] MEDS: vancomycin 2,000 MG/400 ML PIGGYBACK 200 MG IV (18:00)
--- NOTE | 2022-11-20 18:28 | PM.HP ---
Providers/Chief Complaint Primary Care Provider: Sulma Wetzel MD Chief Complaint: FOOT PAIN History of Present Illness Akil Velasco is a 52 year old male who carries history of end-stage disease, recently had left below-knee amputation, presented today for worsening of right leg pain. Patient has not noticed any fever, nausea, vomiting or diarrhea. Patient is stating that his symptoms started on Sunday, last night skin was peeled off and he noticed some purulent discharge as well. During previous visit patient required albumin and 2 units PRBC for his hypovolemic shock. He gets Sunday dialysis. In the ER Dr. Jenkins was consulted and hospital service has been requested to admit the patient there is concern for osteomyelitis of right foot Review of Systems Const: Denies: fever(s) Eyes: Denies: change in vision ENMT: Denies: throat pain Card: Denies: chest pain Resp: Denies: dyspnea GI: Denies: abdominal pain : Denies: flank pain Musc: Denies: neck pain Skin/Breast: Reports: rash Neuro: Denies: headache(s) Psych: Reports: anxiety Endo: Denies: polyuria Medications/Allergies Home Medications Medication Instructions Recorded Confirmed Last Taken Type Wheel Chair #1 ea 08/18/21 11/20/22 10/31/22 Rx ropinirole 0.25 mg tablet 0.25 mg PO BEDTIME PRN Restless 08/22/21 11/20/22 10/25/22 History Leg(S) sodium zirconium cyclosilicate 5 See Rx Instructions .Route .COMPLEX 08/22/21 11/20/22 10/31/22 History gram oral powder packet (Lokelma) trazodone 50 mg tablet 50 mg PO BEDTIME 08/22/21 11/20/22 10/31/22 History cholecalciferol (vitamin D3) 25 25 mcg PO QAM 04/11/22 11/20/22 10/31/22 History mcg (1,000 unit) tablet (Vitamin D3) ondansetron HCl 4 mg tablet 4 mg PO Q4H PRN Nausea 04/11/22 11/20/22 10/25/22 History Compression Stockings #1 ea 04/12/22 11/20/22 10/31/22 Rx [place] boot modification #1 ea 07/17/22 11/20/22 10/31/22 Rx oxycodone 5 mg tablet 5 mg PO Q4H PRN Pain 08/16/22 11/20/22 10/31/22 History lidocaine-prilocaine 2.5 %-2.5 % See Rx Instructions .Route .COMPLEX 09/18/22 11/20/22 10/31/22 History topical cream sevelamer carbonate 800 mg tablet See Rx Instructions .Route .COMPLEX 09/18/22 11/20/22 10/31/22 History B-complex with vitamin C 1 cap PO DAILY 10/16/22 11/20/22 10/31/22 History Saccharomyces boulardii 250 mg 250 mg PO BID 10/16/22 11/20/22 10/31/22 History capsule albuterol sulfate 90 mcg/actuation 2 puff inhalation QID PRN 10/16/22 11/20/22 10/31/22 History aerosol inhaler Shortness Of Breath aluminum-mag hydroxide-simethicone 30 ml PO Q4H PRN GERD 10/16/22 11/20/22 10/25/22 History 200 mg-200 mg-20 mg/5 mL oral susp atorvastatin 80 mg tablet 80 mg PO DAILY 10/16/22 11/20/22 10/31/22 History bisacodyl 10 mg rectal suppository 10 mg NV DAILY PRN Constipation 10/16/22 11/20/22 10/25/22 History (Dulcolax (bisacodyl)) brexpiprazole 0.25 mg tablet 0.25 mg PO DAILY 10/16/22 11/20/22 10/31/22 History diphenhydramine HCl 25 mg tablet 25 mg PO DAILY PRN itching 10/16/22 11/20/22 10/25/22 History (Benadryl Allergy) famotidine 10 mg tablet 10 mg PO DAILY 10/16/22 11/20/22 10/31/22 History folic acid 1 mg tablet 1 mg PO DAILY 10/16/22 11/20/22 10/31/22 History gabapentin 100 mg capsule 200 mg PO TID 10/16/22 11/20/22 10/31/22 History hydroxyzine HCl 25 mg tablet 25 mg PO Q6H PRN Anxiety 10/16/22 11/20/22 10/31/22 History oxymetazoline 0.05 % nasal mist 2 spray intranasal Q12H PRN 10/16/22 11/20/22 10/25/22 History (Afrin (oxymetazoline)) Allergy Symptoms pantoprazole 40 mg tablet,delayed 40 mg PO DAILY 10/16/22 11/20/22 10/31/22 History release polyethylene glycol 3350 17 17 g PO BID 10/16/22 11/20/22 10/31/22 History gram/dose oral powder (Miralax) polysaccharide iron complex 150 mg 150 mg PO DAILY 10/16/22 11/20/22 10/31/22 History iron capsule (Ferrex) prochlorperazine 25 mg rectal 25 mg NV BID PRN Nausea 10/16/22 11/20/22 10/25/22 History suppository sodium phosphates 19 gram-7 118 ml NV DAILY PRN Constipation 10/16/22 11/20/22 10/25/22 History gram/118 mL enema (Fleet Enema) venlafaxine 75 mg capsule,extended 75 mg PO DAILY 10/16/22 11/20/22 10/31/22 History release 24 hr (Effexor XR) collagenase clostridium histo. 250 1 applic topical DAILY 10/30/22 11/20/22 10/31/22 History unit/gram topical ointment (Santyl) Allergies Allergy/AdvReac Type Severity Reaction Status Date / Time linezolid [From Zyvox] Allergy tendonitis Verified 11/20/22 14:45 ciprofloxacin [From Cipro] AdvReac Severe Tendonitis Verified 11/20/22 14:45 PFSH Acute PFSH: Medical History (Updated 11/20/22 @ 21:51 by Brady Jenkins DPM) Accelerated hypertension Acquired equinovarus deformity of left foot Anemia Anemia of chronic disease BMI 50.0-59.9, adult Cardiac arrest (~07/2020) when had covid Cellulitis CHF (congestive heart failure), NYHA class III Chronic respiratory failure with hypoxia and hypercapnia Chronic ulcer of left foot with fat layer exposed Chronic venous insufficiency COPD (chronic obstructive pulmonary disease) Diabetes Diabetic foot ulcers ESRD (end stage renal disease) on dialysis First degree heart block Foot osteomyelitis, left Fracture of fifth metatarsal bone of left foot Fracture of fourth metatarsal bone of left foot Fracture, thoracic vertebra T7-T8 Gas gangrene History of left below knee amputation History of renal cell carcinoma Hypertension Hypovolemic shock Lung nodule Morbid obesity with BMI of 40.0-44.9, adult Neuropathy Non-healing ulcer of right foot with fat layer exposed Non-pressure chronic ulcer of other part of right foot with necrosis of muscle Obesity hypoventilation syndrome Obstructive sleep apnea non compliant with home bipap/cpap Osteomyelitis Pneumonia due to 2019-nCoV (~07/2020) Pre-ulcerative calluses PVD (peripheral vascular disease) Renal cell carcinoma History bilateral renal cell carcinoma 2007 then recurrence on the contralateral side 2011. No recurrence for long-term follow-up with some suspicion on CT scan April 2020. Restrictive lung disease Type 2 diabetes mellitus with diabetic polyneuropathy 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 Ulcer of sacral region, stage 1 Urinary retention Vitamin D deficiency Xerosis of skin Surgical History H/O partial nephrectomy bilateral H/O wisdom tooth extraction History of cataract surgery Hx of lymph node excision Family History Father , at age 65 Diabetes Cancer Metastatic prostate cancer to liver Mother , at age 72 Diabetes Grandfather Diabetes Cancer Other Anemia Hyperlipidemia Social History Smoking and tobacco status: never smoked Second hand smoke exposure: Yes Smoking risk assessment/counseling performed?: Yes Alcohol intake: current Alcohol intake frequency: holidays/special occasions only Substance/Drug Use: never Lives independently: Yes Household members: spouse Housing: House Marital status: service: No Current occupational status: retired Pets and animals: Yes Do you think of yourself as: Straight/Heterosexual Current gender identity: Male Vitals/I&O/Wt Last Vital Signs Temp 98.0 F 11/20/22 14:39 Pulse 86 11/20/22 14:39 Resp 16 11/20/22 14:39 BP 154/93 11/20/22 16:30 Pulse Ox 99 11/20/22 17:00 O2 Del Method Room Air 11/20/22 14:39 11/20/22 11/20/22 11/20/22 06:59 14:59 22:59 Intake Total 50 / 50 Balance 50 / 50 Weight last 48 hrs Weight 113.398 kg Physical Exam Narrative: Patient is laying supine Malnourished Sarcopenia Distended abdomen Umbilical hernia Dry skin Left below-knee amputation stump covered with dressing Right foot with open wound right lateral border, foul-smelling with mild serous discharge Venous stasis dermatitis Nonfocal neuro exam S1, S2 Data 11/21/22 05:25 11/21/22 05:25 Micro: Microbiology 11/20/22 16:25 Blood Culture - Preliminary Blood SPECIMEN COLLECTED 11/20/22 15:12 Blood Culture - Preliminary Blood SPECIMEN COLLECTED A&P Assessment and plan (1) Cellulitis: (2) Osteomyelitis: (3) Status post below-knee amputation of left lower extremity: (4) Foot osteomyelitis, right: Plan Osteomyelitis right foot N.p.o. after midnight Dr. Jenkins consulted Start broad-spectrum antibiotics N.p.o. after midnight DVT prophylaxis on hold This seems to be chronic osteomyelitis, surgical debridement versus long-term antibiotic End-stage renal disease Sunday dialysis and will consult telemetry nephro Chronic anemia, required 2 unit PRBC and bag of albumin for hypovolemic shock on previous visit Monitor closely for now Hypervolemic, ascites, patient gets therapeutic paracentesis frequently Hyperkalemia: Dialysis tomorrow no acute indication Full code N.p.o. 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
--- NOTE | 2022-11-20 18:49 | P.CONIM_ITS ---
Providers/Reason For Consult Consulting Physician/Specialty*: domonique patel md/ telenephrology Reason for Consult*: ESRD care- hyperkalemia Requesting Physician: DR Quincy Johansen Attending Physician: Dr Quincy Johansen Primary Care Provider: Sulma Wetzel MD History of Present Illness History of Present Illness Akil Velasco is a 52 year old male w/ ESRD, recent Left B KA. Pt admitted for severe right leg pain and diagnosed with right leg OM. rnela called for ESRD care Review of Systems Narrative: weak, right foot and ankle pain. denies h/a,+ poor sugar control. no n/v/d/fevers. + left stump pain, + edema, + weak. no riojas or sob, orthopnea. on HD TTS Medications/Allergies Home Medications Medication Instructions Recorded Confirmed Last Taken Type Wheel Chair #1 ea 08/18/21 11/20/22 10/31/22 Rx ropinirole 0.25 mg tablet 0.25 mg PO BEDTIME PRN Restless 08/22/21 11/20/22 10/25/22 History Leg(S) sodium zirconium cyclosilicate 5 See Rx Instructions .Route .COMPLEX 08/22/21 11/20/22 10/31/22 History gram oral powder packet (Lokelma) trazodone 50 mg tablet 50 mg PO BEDTIME 08/22/21 11/20/22 10/31/22 History cholecalciferol (vitamin D3) 25 25 mcg PO QAM 04/11/22 11/20/22 10/31/22 History mcg (1,000 unit) tablet (Vitamin D3) ondansetron HCl 4 mg tablet 4 mg PO Q4H PRN Nausea 04/11/22 11/20/22 10/25/22 History Compression Stockings #1 ea 04/12/22 11/20/22 10/31/22 Rx absentee-shawnee boot modification #1 ea 07/17/22 11/20/22 10/31/22 Rx oxycodone 5 mg tablet 5 mg PO Q4H PRN Pain 08/16/22 11/20/22 10/31/22 History lidocaine-prilocaine 2.5 %-2.5 % See Rx Instructions .Route .COMPLEX 09/18/22 11/20/22 10/31/22 History topical cream sevelamer carbonate 800 mg tablet See Rx Instructions .Route .COMPLEX 09/18/22 11/20/22 10/31/22 History B-complex with vitamin C 1 cap PO DAILY 10/16/22 11/20/22 10/31/22 History Saccharomyces boulardii 250 mg 250 mg PO BID 10/16/22 11/20/22 10/31/22 History capsule albuterol sulfate 90 mcg/actuation 2 puff inhalation QID PRN 10/16/22 11/20/22 10/31/22 History aerosol inhaler Shortness Of Breath aluminum-mag hydroxide-simethicone 30 ml PO Q4H PRN GERD 10/16/22 11/20/22 10/25/22 History 200 mg-200 mg-20 mg/5 mL oral susp atorvastatin 80 mg tablet 80 mg PO DAILY 10/16/22 11/20/22 10/31/22 History bisacodyl 10 mg rectal suppository 10 mg HI DAILY PRN Constipation 10/16/22 11/20/22 10/25/22 History (Dulcolax (bisacodyl)) brexpiprazole 0.25 mg tablet 0.25 mg PO DAILY 10/16/22 11/20/22 10/31/22 History diphenhydramine HCl 25 mg tablet 25 mg PO DAILY PRN itching 10/16/22 11/20/22 10/25/22 History (Benadryl Allergy) famotidine 10 mg tablet 10 mg PO DAILY 10/16/22 11/20/22 10/31/22 History folic acid 1 mg tablet 1 mg PO DAILY 10/16/22 11/20/22 10/31/22 History gabapentin 100 mg capsule 200 mg PO TID 10/16/22 11/20/22 10/31/22 History hydroxyzine HCl 25 mg tablet 25 mg PO Q6H PRN Anxiety 10/16/22 11/20/22 10/31/22 History oxymetazoline 0.05 % nasal mist 2 spray intranasal Q12H PRN 10/16/22 11/20/22 10/25/22 History (Afrin (oxymetazoline)) Allergy Symptoms pantoprazole 40 mg tablet,delayed 40 mg PO DAILY 10/16/22 11/20/22 10/31/22 History release polyethylene glycol 3350 17 17 g PO BID 0311/20/22 10/31/22 History gram/dose oral powder (Miralax) polysaccharide iron complex 150 mg 150 mg PO DAILY 10/16/22 11/20/22 10/31/22 History iron capsule (Ferrex) prochlorperazine 25 mg rectal 25 mg HI BID PRN Nausea 10/16/22 11/20/22 10/25/22 History suppository sodium phosphates 19 gram-7 118 ml HI DAILY PRN Constipation 10/16/22 11/20/22 10/25/22 History gram/118 mL enema (Fleet Enema) venlafaxine 75 mg capsule,extended 75 mg PO DAILY 10/16/22 11/20/22 10/31/22 History release 24 hr (Effexor XR) collagenase clostridium histo. 250 1 applic topical DAILY 10/30/22 11/20/22 10/31/22 History unit/gram topical ointment (Santyl) Allergies Allergy/AdvReac Type Severity Reaction Status Date / Time linezolid [From Zyvox] Allergy tendonitis Verified 11/20/22 14:45 ciprofloxacin [From Cipro] AdvReac Severe Tendonitis Verified 11/20/22 14:45 Current Medications Generic Name Dose Route Start Last Admin Trade Name Freq PRN Reason Stop Dose Admin Vancomycin/PEG/NADA/Lysine/Water 2,000 mg in 400 mls @ 200 mls/hr 11/20/22 17:12 11/20/22 18:00 Vancocin IV 11/20/22 19:11 200 mls/hr ONCE ONE Administration Protocol PFSH Acute PFSH: Medical History (Updated 11/20/22 @ 19:01 by Darrell Patel MD) Accelerated hypertension Acquired equinovarus deformity of left foot Anemia Anemia of chronic disease BMI 50.0-59.9, adult Cardiac arrest (~07/2020) when had covid Cellulitis CHF (congestive heart failure), NYHA class III Chronic respiratory failure with hypoxia and hypercapnia Chronic ulcer of left foot with fat layer exposed Chronic venous insufficiency COPD (chronic obstructive pulmonary disease) Diabetes Diabetic foot ulcers ESRD (end stage renal disease) on dialysis First degree heart block Foot osteomyelitis, left Fracture of fifth metatarsal bone of left foot Fracture of fourth metatarsal bone of left foot Fracture, thoracic vertebra T7-T8 Gas gangrene History of left below knee amputation History of renal cell carcinoma Hypertension Hypovolemic shock Lung nodule Morbid obesity with BMI of 40.0-44.9, adult Neuropathy Non-healing ulcer of right foot with fat layer exposed Non-pressure chronic ulcer of other part of right foot with necrosis of muscle Obesity hypoventilation syndrome Obstructive sleep apnea non compliant with home bipap/cpap Osteomyelitis Pneumonia due to 2019-nCoV (~07/2020) Pre-ulcerative calluses PVD (peripheral vascular disease) Renal cell carcinoma History bilateral renal cell carcinoma 2007 then recurrence on the contralateral side 2011. No recurrence for long-term follow-up with some suspicion on CT scan April 2020. Restrictive lung disease Type 2 diabetes mellitus with diabetic polyneuropathy 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 Ulcer of sacral region, stage 1 Urinary retention Vitamin D deficiency Xerosis of skin Surgical History H/O partial nephrectomy bilateral H/O wisdom tooth extraction History of cataract surgery Hx of lymph node excision Family History Father , at age 65 Diabetes Cancer Metastatic prostate cancer to liver Mother , at age 72 Diabetes Grandfather Diabetes Cancer Other Anemia Hyperlipidemia Social History Smoking and tobacco status: never smoked Second hand smoke exposure: Yes Smoking risk assessment/counseling performed?: Yes Alcohol intake: current Alcohol intake frequency: holidays/special occasions only Substance/Drug Use: never Lives independently: Yes Household members: spouse Housing: House Marital status: service: No Current occupational status: retired Pets and animals: Yes Do you think of yourself as: Straight/Heterosexual Current gender identity: Male Vitals/I&O/Wt Last Vital Signs Temp 98.0 F 11/20/22 14:39 Pulse 86 11/20/22 14:39 Resp 16 11/20/22 14:39 BP 154/93 11/20/22 16:30 Pulse Ox 99 11/20/22 17:00 O2 Del Method Room Air 11/20/22 14:39 11/20/22 11/20/22 11/20/22 06:59 14:59 22:59 Intake Total 50 / 50 Balance 50 / 50 Weight last 48 hrs Weight 113.398 kg Physical Exam Narrative: obese man in bed, NARD vs noted heent- nc/at, eomi, anicteric neck supple lungs dull bases and crackles heart reg + s1, s2 abd -soft, nt,nd, + bs ext Left BKA wrapped rt leg foot and ankle bandaged, + edema LUE AVF w/ thrill and bruit neuro a,a, o x 3 Data 11/20/22 16:25 11/20/22 16:25 Micro: Microbiology 11/20/22 16:25 Blood Culture - Preliminary Blood SPECIMEN COLLECTED 11/20/22 15:12 Blood Culture - Preliminary Blood SPECIMEN COLLECTED A&P Assessment and plan (1) ESRD (end stage renal disease) on dialysis: 52 yr old man 1. eSRD- HD in am 2. hyperkalemia- lasix and kayexalate now 3. PVD- s/p Left BKA. Q RT lg/ foot OM - per medicine and surgery 4. HTN- monitor off ARB/ Junaid-i for now. remove fluids on dialysis 5. hyponatremia- check tsh, and from ESRD 6. anemia- improving- epo 7. monitor phos seen and examine dw/ RN- telehealth visit informed consent for telehealth and for dialysis obtained from the pt time spent > 50 min Plan see above Consult Attestations Medical Necessity Statement: OM, ESRD, DM Time Spent in Patient Care: Greater than 35 minutes (>than 50% of time spent in counselling and/or direct pt care on unit) . Coding Level of Care Code Acute Code for Chg Fwd Diagnoses ESRD (end stage renal disease) on dialysis N18.6; Z99.2
[2022-11-20] MEDS: insulin regular-human 100 units/1 mL 10 UNIT IVP (19:23)
[2022-11-20] MEDS: calcium gluconate 0.1 gm/mL 10% SDV 10mL 1 GM IVP (19:27)
--- NOTE | 2022-11-20 19:45 | PC.NURSE ---
large BM on bedpan
--- NOTE | 2022-11-20 19:50 | P.CONIM_ITS ---
Providers/Reason For Consult Consulting Physician/Specialty*: Dr. Brady Jenkins, DPM Reason for Consult*: Right foot wound Primary Care Provider: Sulma Wetzel MD History of Present Illness History of Present Illness Akil Velasco is a 52 year old male, well known to myself and to the podiatry service who presented to the emergency department this afternoon from his current residence at [facility] with chief complaint of right leg pain. He states that his leg pain was most concentrated around the calf region. From the time that he presented to the emergency dempartment to his evaluation by me in the emergency department he states that his pain has improved. He denies any injury to the area. During his workup in the emergency department he was found to have a wound on the lateral aspect of the right 5th metatarsal base. The patient has had chronic ulceration to the plantar aspect of the right foot under the 5th metatarsal base in the past and this has since resolved. His current wound has only been there the past 2 days according to the patient. He states that he has been working with physical therapy to rehabilitate after undergoing left BKA (09/21/22--Dr. Crane). While working with physical therapy he states t hat he was wearing socks rather than supportive shoes and he developed this blister like lesion on the lateral aspect of his foot. The overlying skin of the blister came off. The patient states that he has been feeling well and has not had any constitutional symptoms leading up to this point. He states that after being informed in the emergency department that he had bone infection that he nearly went into full panic mode. He is resting comfortably as we discussed at bedside with no acute distress. Review of Systems General: Reports: 10 or more systems reviewed and unremarkable except in HPI and below Const: Denies: fever(s), chills, body aches or change in appetite Eyes: Denies: change in vision or blurry vision Card: Denies: chest pain, palpitations or irregular heart rhythm Resp: Denies: dyspnea GI: Denies: abdominal pain, nausea, vomiting or diarrhea Musc: Reports: joint stiffness Skin/Breast: Reports: lesions Neuro: Reports: numbness in extremities Medications/Allergies Home Medications Medication Instructions Recorded Confirmed Last Taken Type Wheel Chair #1 ea 08/18/21 11/20/22 10/31/22 Rx ropinirole 0.25 mg tablet 0.25 mg PO BEDTIME PRN Restless 08/22/21 11/20/22 10/25/22 History Leg(S) sodium zirconium cyclosilicate 5 See Rx Instructions .Route .COMPLEX 08/22/21 11/20/22 10/31/22 History gram oral powder packet (Lokelma) trazodone 50 mg tablet 50 mg PO BEDTIME 08/22/21 11/20/22 10/31/22 History cholecalciferol (vitamin D3) 25 25 mcg PO QAM 04/11/22 11/20/22 10/31/22 History mcg (1,000 unit) tablet (Vitamin D3) ondansetron HCl 4 mg tablet 4 mg PO Q4H PRN Nausea 04/11/22 11/20/22 10/25/22 History Compression Stockings #1 ea 04/12/22 11/20/22 10/31/22 Rx jackson boot modification #1 ea 07/17/22 11/20/22 10/31/22 Rx oxycodone 5 mg tablet 5 mg PO Q4H PRN Pain 08/16/22 11/20/22 10/31/22 History lidocaine-prilocaine 2.5 %-2.5 % See Rx Instructions .Route .COMPLEX 09/18/22 11/20/22 10/31/22 History topical cream sevelamer carbonate 800 mg tablet See Rx Instructions .Route .COMPLEX 09/18/22 11/20/22 10/31/22 History B-complex with vitamin C 1 cap PO DAILY 10/16/22 11/20/22 10/31/22 History Saccharomyces boulardii 250 mg 250 mg PO BID 10/16/22 11/20/22 10/31/22 History capsule albuterol sulfate 90 mcg/actuation 2 puff inhalation QID PRN 10/16/22 11/20/22 10/31/22 History aerosol inhaler Shortness Of Breath aluminum-mag hydroxide-simethicone 30 ml PO Q4H PRN GERD 10/16/22 11/20/22 10/25/22 History 200 mg-200 mg-20 mg/5 mL oral susp atorvastatin 80 mg tablet 80 mg PO DAILY 10/16/22 11/20/22 10/31/22 History bisacodyl 10 mg rectal suppository 10 mg AK DAILY PRN Constipation 10/16/22 11/20/22 10/25/22 History (Dulcolax (bisacodyl)) brexpiprazole 0.25 mg tablet 0.25 mg PO DAILY 10/16/22 11/20/22 10/31/22 History diphenhydramine HCl 25 mg tablet 25 mg PO DAILY PRN itching 10/16/22 11/20/22 10/25/22 History (Benadryl Allergy) famotidine 10 mg tablet 10 mg PO DAILY 10/16/22 11/20/22 10/31/22 History folic acid 1 mg tablet 1 mg PO DAILY 10/16/22 11/20/22 10/31/22 History gabapentin 100 mg capsule 200 mg PO TID 10/16/22 11/20/22 10/31/22 History hydroxyzine HCl 25 mg tablet 25 mg PO Q6H PRN Anxiety 10/16/22 11/20/22 10/31/22 History oxymetazoline 0.05 % nasal mist 2 spray intranasal Q12H PRN 10/16/22 11/20/22 10/25/22 History (Afrin (oxymetazoline)) Allergy Symptoms pantoprazole 40 mg tablet,delayed 40 mg PO DAILY 10/16/22 11/20/22 10/31/22 History release polyethylene glycol 3350 17 17 g PO BID 10/16/22 11/20/22 10/31/22 History gram/dose oral powder (Miralax) polysaccharide iron complex 150 mg 150 mg PO DAILY 10/16/22 11/20/22 10/31/22 History iron capsule (Ferrex) prochlorperazine 25 mg rectal 25 mg AK BID PRN Nausea 10/16/22 11/20/22 10/25/22 History suppository sodium phosphates 19 gram-7 118 ml AK DAILY PRN Constipation 10/16/22 11/20/22 10/25/22 History gram/118 mL enema (Fleet Enema) venlafaxine 75 mg capsule,extended 75 mg PO DAILY 10/16/22 11/20/22 10/31/22 History release 24 hr (Effexor XR) collagenase clostridium histo. 250 1 applic topical DAILY 10/30/22 11/20/22 10/31/22 History unit/gram topical ointment (Santyl) Allergies Allergy/AdvReac Type Severity Reaction Status Date / Time linezolid [From Zyvox] Allergy tendonitis Verified 11/20/22 14:45 ciprofloxacin [From Cipro] AdvReac Severe Tendonitis Verified 11/20/22 14:45 PFSH Acute PFSH: Medical History (Updated 11/20/22 @ 21:51 by Brady Jenkins DPM) Accelerated hypertension Acquired equinovarus deformity of left foot Anemia Anemia of chronic disease BMI 50.0-59.9, adult Cardiac arrest (~07/2020) when had covid Cellulitis CHF (congestive heart failure), NYHA class III Chronic respiratory failure with hypoxia and hypercapnia Chronic ulcer of left foot with fat layer exposed Chronic venous insufficiency COPD (chronic obstructive pulmonary disease) Diabetes Diabetic foot ulcers ESRD (end stage renal disease) on dialysis First degree heart block Foot osteomyelitis, left Fracture of fifth metatarsal bone of left foot Fracture of fourth metatarsal bone of left foot Fracture, thoracic vertebra T7-T8 Gas gangrene History of left below knee amputation History of renal cell carcinoma Hypertension Hypovolemic shock Lung nodule Morbid obesity with BMI of 40.0-44.9, adult Neuropathy Non-healing ulcer of right foot with fat layer exposed Non-pressure chronic ulcer of other part of right foot with necrosis of muscle Obesity hypoventilation syndrome Obstructive sleep apnea non compliant with home bipap/cpap Osteomyelitis Pneumonia due to 2019-nCoV (~07/2020) Pre-ulcerative calluses PVD (peripheral vascular disease) Renal cell carcinoma History bilateral renal cell carcinoma 2007 then recurrence on the contralateral side 2011. No recurrence for long-term follow-up with some suspicion on CT scan April 2020. Restrictive lung disease Type 2 diabetes mellitus with diabetic polyneuropathy 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 Ulcer of sacral region, stage 1 Urinary retention Vitamin D deficiency Xerosis of skin Surgical History H/O partial nephrectomy bilateral H/O wisdom tooth extraction History of cataract surgery Hx of lymph node excision Family History Father , at age 65 Diabetes Cancer Metastatic prostate cancer to liver Mother , at age 72 Diabetes Grandfather Diabetes Cancer Other Anemia Hyperlipidemia Social History Smoking and tobacco status: never smoked Second hand smoke exposure: Yes Smoking risk assessment/counseling performed?: Yes Alcohol intake: current Alcohol intake frequency: holidays/special occasions only Substance/Drug Use: never Lives independently: Yes Household members: spouse Housing: House Marital status: service: No Current occupational status: retired Pets and animals: Yes Do you think of yourself as: Straight/Heterosexual Current gender identity: Male Vitals/I&O/Wt Last Vital Signs Temp 98.0 F 11/20/22 14:39 Pulse 86 11/20/22 14:39 Resp 16 11/20/22 14:39 BP 150/81 11/20/22 19:30 Pulse Ox 96 11/20/22 19:30 O2 Del Method Room Air 11/20/22 14:39 11/20/22 11/20/22 11/20/22 06:59 14:59 22:59 Intake Total 50 / 50 Balance 50 / 50 Weight last 48 hrs Weight 250 lb Physical Exam Narrative: GENERAL: A&O x 3 VASCULAR: DP/PT pulses palpable +1 right right foot. +1 edema to right leg, dependent ruborous appearance to right lower extremity DERMATOLOGICAL: Right lower extremity is indurated with waxy, shiny appearing skin. Superficial ulceration to lateral aspect of right 5th metatarsal base with no tracking noted to the wound. Underlying boggy soft tissue at area of 5th metatarsal base. No active drainage. No purulence. No surrounding erythema, no probe to bone. Wound bed is 100% granular. Multiple residual superficial blisters of epidermis noted plantar and dorsal to the superficial wound (see photo). MUSCULOSKELETAL: Left BKA. No tenderness with palpation of aleksandr-wound area to right foot. Unable to palpate 5th metatarsal base, soft tissue is supple at area where 5th metatarsal base would be present. NEUROLOGICAL: Neurological sensation to the affected foot and ankle is diminished through L4-S1 dermatomes via 10g SWMF, diminished sensation extends proximally to the level of the mid leg Data 11/20/22 16:25 11/20/22 16:25 Micro: Microbiology 11/20/22 16:25 Blood Culture - Preliminary Blood SPECIMEN COLLECTED 11/20/22 15:12 Blood Culture - Preliminary Blood SPECIMEN COLLECTED RIGHT FOOT X-RAY: My impression: 3 view x-rays of right foot and 3 view x-rays of right ankle were taken in the emergency department, personally interpreted by me. These x-ray series show increased soft tissue density along the lateral aspect of the right foot surrounding the base of the 5th metatarsal. There is significant osseous destruction noted at the base of the 5th metatarsal extending distally to the metdiaphyseal region. There is no associated subcutaneous emphysema with the osseous destruction. No destructive involvement of 4th metatarsal or cuboid is appreciated on these series. Vascular calcifications are also noted on these views. Radiologist's impression: There is osseous destruction of the proximal fifth metatarsal with soft tissue swelling most likely representing acute osteomyelitis. Underlying abscess would be a consideration. No other sign of fracture or bone destruction. Chronically dislocated second PIP joint. Vascular calcifications about the foot and ankle. Posterior heel spur. Soft tissue swelling of the foot. DJD of the midfoot joints. XR/XR foot RT min 3V* [id number] IMPRESSION: 1. Osseous destruction of the proximal fifth metatarsal with soft tissue mass almost surely representing acute osteomyelitis. There may be an associated abscess present. 2. No other sign of bone destruction or acute fracture. Chronic PIP joint dislocation of the second toe. Degenerative changes in the midfoot joints. A&P Assessment and plan (1) Chronic osteomyelitis of right foot: (2) 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, limited to breakdown of skin: (3) ESRD (end stage renal disease) on dialysis: (4) Type 2 diabetes mellitus: (5) Status post below-knee amputation of left lower extremity: Plan LABS & VITALS WBC 6.0 HR 86bpm RR 16rpm TEMP 98.0 ESR 89 CRP 62.8 COURSE Patient is a 52 year old male with history of left foot chronic osteomyelitis for which he underwent BKA. He aslo has a history of chronic ulceration to plantar aspect of right 5th metatarsal base. This was managed in the outpatient setting by podiatry until patient was referred back to wound care. Since the left BKA, the plantar right foot wound has completely healed. The new wound to the lateral aspect of the right foot is new and has only been present the past couple of days. Patient states that it developed during his rehabilitaion for the BKA with physical therapy. The patient presented to the ED today with chief complaint of right leg pain, to which he states is much improved already. On exam, both clincially and radiographically, there was concern over abscess and acute osteomyelitis. Given the chronicity of the patient's wound on the right fo ot prior to him undergoing amputation on the left foot the patient likely had osteomyelitis at that point which has continued to progress. In reviewing in the X-rays there is noted to be increased soft tissue density surrounding the 5th metatarsal base with osseous destruction. There is not however, any visualized subcutaneous emphysema. The clinical exam reveals supple soft tissues overlying the area of the 5th metatarsal base. I believe this is due to the complete erosion of the 5th metataral base rather than from abscess formation. The patient was noted to have an ESR of 89 which indicates osteomyelitis. Given these clinical and radiographic findings I believe the patient to have chronic osteomyelitis of the righte 5th metatarsal base. I do not believe that the patient has acute abscess formation or acute osteomyelitis necessitating urgent surgical intervention during this admission. I do believe that the patient would benefit from surgical debridement of the chronic osteomyelitis in the future in the outpatient setting. PLAN -Ok for diet from podiatry standpoint -No acute surgical intervention during this admission -Trend labs -Local wound care with wound gel and dry sterile dressing -Recommend discharge on oral antibiotics, doxycycline given good bone penetration -I will round on patient tomorrow morning to assess further. If wound remains stable and concern for abscess is low, patient will be ok to discharge from podiatry standpoint with close outpatient follow up. Coding Level of Care Code Acute Code for [facility] Diagnoses Chronic osteomyelitis of right foot M86.671 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, limited to breakdown of skin E11.622; L97.301 ESRD (end stage renal disease) on dialysis N18.6; Z99.2 Type 2 diabetes mellitus E11.9 Status post below-knee amputation of left lower extremity Z89.512
[2022-11-20 19:55] LABS: Uric Acid 3.9 mg/dL (3.4-7.0)
[2022-11-20 21:13] LABS: Hepatitis B Surface AB 44.4 (11.5-1000); Hepatitis B Surface Antigen Non-Reactive (Nonreactive); Hepatitis C Virus Antibody Non-Reactive (Nonreactive)
[2022-11-20 21:25] LABS: Glucose Point of Care 59 mg/dL (70-110)
[2022-11-20] MEDS: gabapentin 100 mg Capsule 200 MG PO (22:17)
[2022-11-20 22:49] LABS: Glucose Point of Care 78 mg/dL (70-110)
[2022-11-20 22:50] LABS: Anion Gap 21.4 (5-19); Blood Urea Nitrogen 46 mg/dL (6-20); Calcium 8.3 mg/dL (8.5-10.5); Carbon Dioxide 26 mmol/L (22-29); Chloride 89 mmol/L (98-107); Glomerular Filtration Rate 13.5 mL/min (90-130); Glucose 65 mg/dL (65-115); Osmolality Calculated 282 mOsm/kg (285-295); Potassium 5.4 mmol/L (3.5-5.1); Sodium 131 mmol/L (136-145)
[2022-11-20 23:41] LABS: ABG PCO2 48.9 mmHg (35-45); ABG PH Result 7.38 (7.35-7.45); Alveolar-Arterial Oxygen Gradi 1.6 mmHg (5-10); Arterial Blood Gas Hematocrit 24.2 % (42-52); Base Excess ABG 3.5 mmol/L (-2.0-2.0); Blood Gas Allen Test Pos; Blood Gas Sample Site Radial, right; Blood Gas Sample Type Arterial; Carboxyhemoglobin 2.1 %THgb (0.4-20.1); HCO3 ABG 29.1 mmol/L (22-26); HGB O2 Sat 92.5 % (95-100); Ionized Calcium Level - ABG 1.2 mmol/L (1.1-1.4); Methemoglobin 1.2 % (0.4-1.5); Oxygen Device NC; Oxygen Saturation ABG 95.7; PO2 ABG 77.9 mmHg (80.0-100.0); Potassium Level - ABG 5.3 mmol/L (3.5-5.0); Total Hemoglobin 7.9 g/dL (14-18)
[2022-11-20 23:43] LABS: Glucose Point of Care 124 mg/dL (70-110)
[2022-11-21] VITALS (57 sets, daily range): BP systolic 105–123; BP diastolic 64–75; PULSE 51–100; RESP 0–35; TEMP 36.8–37; O2SAT 96–99
[2022-11-21 01:35] LABS: Glucose Point of Care 86 mg/dL (70-110)
[2022-11-21 02:05] LABS: Glucose Point of Care 83 mg/dL (70-110)
[2022-11-21] MEDS: dextrose 10% 1,000 ML 75 ML IV (02:21)
[2022-11-21 03:05] LABS: Glucose Point of Care 123 mg/dL (70-110)
[2022-11-21 04:01] LABS: Glucose Point of Care 97 mg/dL (70-110)
[2022-11-21 05:22] LABS: Glucose Point of Care 117 mg/dL (70-110)
[2022-11-21] MEDS: ondansetron 2 mg/ML SDV 2 mL 4 MG IVP (05:42)
[2022-11-21 05:47] LABS: Basophils # 0.1 10^3/uL (0.0-0.1); Basophils % 0.8 %; Eosinophils # 0.3 10^3/uL (0.0-0.8); Eosinophils % 4.9 %; Hematocrit 26.3 % (42.0-52.0); Hemoglobin 7.9 g/dL (11.7-16.6); Lymphocytes # 0.6 10^3/uL (0.8-4.8); Lymphocytes % 10.4 %; Mean Corpuscular Volume 93.3 fl (80-94); Mean Platelet Volume 9.7 fL (7.4-10.4); Monocytes # 0.7 10^3/uL (0.2-0.9); Monocytes % 11.2 %; Neutrophils # 4.33 10^3/uL (1.8-7.7); Neutrophils % 72.5 %; Nucleated Red Blood Cells % 0 %; Platelet Count 198 10^3/cmm (130-400); Red Blood Count 2.82 10^6/uL (4.1-5.3); Red Cell Distribution Width 15.7 % (12.1-15.1)
[2022-11-21] MEDS: oxyCODONE 5 mg IR Tab/Cap PO (05:47)
[2022-11-21 06:07] LABS: Alanine Aminotransferase 6 U/L (0-41); Albumin Level 2.7 g/dL (3.5-5.2); Alkaline Phosphatase 103 U/L (40-130); Anion Gap 22.8 (5-19); Aspartate Amino Transferase 12 U/L (0-40); Blood Urea Nitrogen 50 mg/dL (6-20); C Reactive Protein 65.5 mg/L (0.0-4.9); Calcium 8.2 mg/dL (8.5-10.5); Carbon Dioxide 25 mmol/L (22-29); Chloride 90 mmol/L (98-107); Ferritin 218 ng/mL (30-400); Globulin 4.6 g/dL (1.3-4.6); Glomerular Filtration Rate 12.5 mL/min (90-130); Glucose 96 mg/dL (65-115); Iron 24 ug/dL (59-158); Osmolality Calculated 287 mOsm/kg (285-295); Percent Saturation 14.8 % (20-50); Phosphorus 4.7 mg/dL (2.5-4.5); Potassium 5.8 mmol/L (3.5-5.1); Sodium 132 mmol/L (136-145); Total Bilirubin 0.4 mg/dL (0.15-1.2); Total Iron Binding Capacity 162 mcg/dl; Total Protein 7.3 g/dL (6.6-8.7); Unsaturated Iron Binding 138 ug/dL (112-347)
[2022-11-21 06:21] LABS: 25 Hydroxy Vitamin D 15 ng/mL (30-100)
[2022-11-21 06:34] LABS: Parathyroid Hormone 124.2 pg/mL (15-65)
[2022-11-21 06:42] LABS: Glucose Point of Care 106 mg/dL (70-110)
[2022-11-21 07:11] LABS: Glucose Point of Care 101 mg/dL (70-110)
--- NOTE | 2022-11-21 07:45 | P.PN_ITS ---
Subjective Subjective: Patient seen in the ICU at bedside this morning. Patient has been in the ICU for dialysis. Patient states overall he is doing well. Denies any overnight events. Denies any constitutional symptoms. Vitals/I&O/Wt Last Vital Signs Temp 98.2 F 11/21/22 07:12 Pulse 88 11/21/22 07:12 Resp 17 11/21/22 07:12 BP 112/75 11/21/22 07:12 Pulse Ox 99 11/21/22 04:00 O2 Del Method Nasal Cannula 11/21/22 04:00 O2 Flow Rate 2 11/21/22 04:00 11/20/22 11/21/22 11/21/22 22:59 06:59 14:59 Intake Total 980 / 980 150 / 1130 Balance 980 / 980 150 / 1130 Weight last 48 hrs Weight 250 lb Physical Exam Narrative: GENERAL: A&O x 3 VASCULAR: DP/PT pulses palpable +1 right right foot. +1 edema to right leg, dependent ruborous appearance to right lower extremity DERMATOLOGICAL: Right lower extremity is indurated with waxy, shiny appearing skin. Superficial ulceration to lateral aspect of right 5th metatarsal base with no tracking noted to the wound. Underlying boggy soft tissue at area of 5th metatarsal base. No active drainage. No purulence. No surrounding erythema, no probe to bone. Wound bed is 100% granular. Multiple residual superficial blisters of epidermis have resolved. MUSCULOSKELETAL: Left BKA. No tenderness with palpation of aleksandr-wound area to right foot. Unable to palpate 5th metatarsal base, soft tissue is supple at area where 5th metatarsal base would be present. NEUROLOGICAL: Neurological sensation to the affected foot and ankle is diminished through L4-S1 dermatomes via 10g SWMF, diminished sensation extends proximally to the level of the mid leg Data 11/21/22 05:25 11/21/22 05:25 Micro: Microbiology 11/20/22 16:25 Blood Culture - Preliminary Blood SPECIMEN COLLECTED 11/20/22 15:12 Blood Culture - Preliminary Blood SPECIMEN COLLECTED A&P Assessment and plan (1) Chronic osteomyelitis of right foot: (2) 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, limited to breakdown of skin: (3) ESRD (end stage renal disease) on dialysis: (4) Type 2 diabetes mellitus: (5) Status post below-knee amputation of left lower extremity: Plan LABS & VITALS WBC 6.0 VSS ESR 89 CRP 62.8 COURSE Patient is a 52 year old male with history of left foot chronic osteomyelitis for which he underwent BKA. He aslo has a history of chronic ulceration to plantar aspect of right 5th metatarsal base. This was managed in the outpatient setting by podiatry until patient was referred back to wound care. Since the left BKA, the plantar right foot wound has completely healed. The new wound to the lateral aspect of the right foot is new and has only been present the past couple of days. Patient states that it developed during his rehabilitaion for the BKA with physical therapy. The patient presented to the ED today with chief complaint of right leg pain, to which he states is much improved already. On exam, both clincially and radiographically, there was concern over abscess and acute osteomyelitis. Given the chronicity of the patient's wound on the right foot prior to him undergoing amputation on the left foot the patient likely had osteomyelitis at that point which has continued to progress. In reviewing in the X-rays there is noted to be increased soft tissue density surrounding the 5th metatarsal base with osseous destruction. There is not however, any visualized subcutaneous emphysema. The clinical exam reveals supple soft tissues overlying the area of the 5th metatarsal base. I believe this is due to the complete eros ion of the 5th metataral base rather than from abscess formation. The patient was noted to have an ESR of 89 which indicates osteomyelitis. Given these clinical and radiographic findings I believe the patient to have chronic osteomyelitis of the righte 5th metatarsal base. I do not believe that the patient has acute abscess formation or acute osteomyelitis necessitating urgent surgical intervention during this admission. I do believe that the patient would benefit from surgical debridement of the chronic osteomyelitis in the future in the outpatient setting. PLAN -Ok for diet from podiatry standpoint -No acute surgical intervention during this admission -Trend labs -Local wound care with wound gel and dry sterile dressing -I will place an order for Podus boot to home medical supply to help offload the lateral aspect of the right foot while patient is at rest. I believe that while he is at rest in bed the way he orients his leg is contributing to the formation of this pressure ulcer. -Patient can continue with PT/OT exercises. He is to monitor for any worsening of wound or new formation of blisters and contact the office and inform physical therapy if these do arise. -Patient is okay to discharge from podiatry standpoint on oral antibiotics. -Recommend discharge on oral antibiotics, doxycycline given good bone penetration -Patient will follow-up with me in the outpatient setting this 11/24/2022. My office will coordinate this visit. Attestations Medical Necessity Statement*: See above Coding Level of Care Code Acute Code for g [facility] Diagnoses Chronic osteomyelitis of right foot M86.671 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, limited to breakdown of skin E11.622; L97.301 ESRD (end stage renal disease) on dialysis N18.6; Z99.2 Type 2 diabetes mellitus E11.9 Status post below-knee amputation of left lower extremity Z89.512
[2022-11-21] MEDS: gabapentin 100 mg Capsule 200 MG PO (08:35)
[2022-11-21] MEDS: piperacillin-tazobactam 3.375 GM in sodium chloride 0.9% (plus) 50 ML IV (08:35)
[2022-11-21] MEDS: b-complex-vitamin c Tablet 1 EACH PO (08:35)
[2022-11-21] MEDS: sennosides-docusate Tablet 1 TAB PO (08:35)
[2022-11-21] MEDS: folic acid 1 mg Tablet PO (08:35)
--- NOTE | 2022-11-21 09:49 | PC.CHAP ---
Pastoral Care Encounter/Spiritual Assessment Type of Contact [] Declined [place] tender visit [] Patient/Family/Request visit [] Outpatient visit [] Follow-up visit [] Physician referral [] Code/Alert [x] Routine visit [] Staff referral [] Actively dying [] Patient sleeping [] Family support [] [] Out of room [] Palliative care [] [] Receiving care in room [] Pre-surgical visit [] Trauma [] Long length of stay [] ICU visit [] Other: Relational/Emotional Strength [x] Patient feels connected with others/family/visitors/staff [] Distress [] Loneliness/isolation [] Abandonment Spirituality of Patient [x] Person of Lizabeth [] Attends Jewish of their Lizabeth [x Believes in Prayer [] Reads Bible or Adventist materials [] There are Spiritual issues to be addressed Junior Network Engineer Interventions [x] Prayer [x] Active listening [] Non-anxious presence [] Spiritual/emotional support [] Crisis/trauma care [] Spiritual counseling [] Bereavement support [] Provided bereavement packet [] Provided Bible/devotional materials [] Provided toy/stuffed animal, coloring book to patient or family member [] Provided Communion [] Anointing/[place] [] Salvation [x] Completed spiritual assessment [] Other: Impact on Illness or Injury [] Angry [] Fearful [] Anxious [] Often cries [] Exhaustion [] Unable to work [] Unable to attend methodist [] Unable to walk/stand [] Unable to read [] Unable to drive [] Unable to eat/drink [] Unable to sleep [] Unable to be with family [] Patient intubated [] Other: Summary patient needs some counseling Time spent with patient 10 min
--- NOTE | 2022-11-21 10:01 | PM.PN ---
Subjective Subjective: no new complaints Medications: Reviewed: Yes Vitals/I&O/Wt Last Vital Signs Temp 98.2 F 11/21/22 07:12 Pulse 87 11/21/22 09:00 Resp 17 11/21/22 09:00 BP 105/66 11/21/22 09:00 Pulse Ox 96 11/21/22 08:57 O2 Del Method Nasal Cannula 11/21/22 08:57 O2 Flow Rate 2 11/21/22 08:57 11/20/22 11/21/22 11/21/22 22:59 06:59 14:59 Intake Total 980 / 980 150 / 1130 Balance 980 / 980 150 / 1130 Weight last 48 hrs Weight 113.398 kg Physical Exam Narrative: obese man in bed, NARD vs noted heent- nc/at, eomi, anicteric neck supple ext Left BKA wrapped rt leg foot and ankle bandaged, + edema LUE AVF Data 11/21/22 05:25 11/21/22 05:25 Micro: Microbiology 11/20/22 16:25 Blood Culture - Preliminary Blood SPECIMEN COLLECTED 11/20/22 15:12 Blood Culture - Preliminary Blood SPECIMEN COLLECTED A&P Assessment and plan (1) ESRD (end stage renal disease) on dialysis: 52 yr old man 1. eSRD- HD today 2. hyperkalemia- lasix and kayexalate 3. PVD- s/p Left BKA. Q RT lg/ foot OM - per medicine and surgery 4. HTN- monitor off ARB/ Junaid-i for now. remove fluids on dialysis 5. hyponatremia- check tsh, and from ESRD 6. anemia- improving- epo 7. monitor phos seen and examine dw/ RN- telehealth visit informed consent for telehealth and for dialysis obtained from the pt time spent > 50 min Plan see above Attestations Medical Necessity Statement*: per medicine Coding Level of Care Code Acute Code for [facility] Diagnoses ESRD (end stage renal disease) on dialysis N18.6; Z99.2
[2022-11-21 11:46] LABS: Glucose Point of Care 104 mg/dL (70-110)
--- NOTE | 2022-11-21 11:50 | PM.DCS ---
Discharge Providers Date of Admission: 11/20/22 19:57 Date of Discharge: November 21, 2022 Attending Provider at Admission: Chris Johansen MD Attending Provider at Discharge: Chris Johansen MD Primary Care Provider: Sulma Wetzel MD Diagnoses at Discharge Discharge Diagnosis (1) ESRD (end stage renal disease) on dialysis: Status: Acute Reason for Visit Reason for Visit: FOOT PAIN Discharge Data Studies Completed and Pending Completed Studies During Hospitalization Category Date Time Status XR ankle RT min 3V* 32043 Stat Exams 11/20/22 15:13 Completed XR foot RT min 3V* [id number] Stat Exams 11/20/22 15:13 Completed Pending at discharge Category Date Time Status Blood Culture Stat Lab 11/20/22 16:25 Results Complete Blood Count w/Auto AM LABS Lab 11/22/22 04:00 Ordered Complete Blood Count w/Auto AM LABS Lab 11/23/22 04:00 Ordered Comprehensive Metabolic Panel AM LABS Lab 11/22/22 04:00 Ordered Comprehensive Metabolic Panel AM LABS Lab 11/23/22 04:00 Ordered Magnesium AM LABS Lab 11/22/22 04:00 Ordered Magnesium AM LABS Lab 11/23/22 04:00 Ordered Phosphorus AM LABS Lab 11/22/22 04:00 Ordered Phosphorus AM LABS Lab 11/23/22 04:00 Ordered Radiology Impressions Ankle X-Ray 11/20/22 15:13 IMPRESSION: 1. Mild degenerative change. No fracture or dislocation. Soft tissue swelling about the ankle. Foot X-Ray 11/20/22 15:13 IMPRESSION: 1. Osseous destruction of the proximal fifth metatarsal with soft tissue mass almost surely representing acute osteomyelitis. There may be an associated abscess present. 2. No other sign of bone destruction or acute fracture. Chronic PIP joint dislocation of the second toe. Degenerative changes in the midfoot joints. Laboratory Results WBC 6.0 10^3/uL (4.0-10.0) 11/21/22 05:25 RBC 2.82 10^6/uL (4.1-5.3) L 11/21/22 05:25 Hgb 7.9 g/dL (11.7-16.6) L 11/21/22 05:25 Hct 26.3 % (42.0-52.0) L 11/21/22 05:25 MCV 93.3 fl (80-94) 11/21/22 05:25 MCH 28.0 pg (28.0-34.0) 11/21/22 05:25 MCHC 30.0 g/dL (30.0-36.0) 11/21/22 05:25 RDW 15.7 % (12.1-15.1) H 11/21/22 05:25 Plt Count 198 10^3/cmm (130-400) 11/21/22 05:25 MPV 9.7 fL (7.4-10.4) 11/21/22 05:25 Neut % (Auto) 72.5 % 11/21/22 05:25 Lymph % (Auto) 10.4 % 11/21/22 05:25 [place] % (Auto) 11.2 % 11/21/22 05:25 Eos % (Auto) 4.9 % 11/21/22 05:25 Baso % (Auto) 0.8 % 11/21/22 05:25 Neut # (Auto) 4.33 10^3/uL (1.8-7.7) 11/21/22 05:25 Lymph # (Auto) 0.6 10^3/uL (0.8-4.8) L 11/21/22 05:25 [place] # (Auto) 0.7 10^3/uL (0.2-0.9) 11/21/22 05:25 Eos # (Auto) 0.3 10^3/uL (0.0-0.8) 11/21/22 05:25 Baso # (Auto) 0.1 10^3/uL (0.0-0.1) 11/21/22 05:25 Nucleated RBC % (auto) 0 % 11/21/22 05:25 Nucleated RBCs # 0.0 /100WBC 11/21/22 05:25 ESR 89 mm/hr (0-10) H 11/20/22 16:25 Specimen Type Arterial 11/20/22 23:07 Sample Site Radial, right 11/20/22 23:07 ABG pH 7.38 (7.35-7.45) 11/20/22 23:07 ABG pCO2 48.9 mmHg (35-45) H 11/20/22 23:07 ABG pO2 77.9 mmHg (80.0-100.0) L 11/20/22 23:07 ABG HCO3 29.1 mmol/L (22-26) H 11/20/22 23:07 ABG O2 Saturation 95.7 11/20/22 23:07 ABG Base Excess 3.5 mmol/L (-2.0-2.0) H 11/20/22 23:07 Jesus Test Pos 11/20/22 23:07 A-a O2 Gradient 1.6 mmHg (5-10) L 11/20/22 23:07 Hematocrit 24.2 % (42-52) L 11/20/22 23:07 Hgb O2 Saturation 92.5 % (95-100) L 11/20/22 23:07 Carboxyhemoglobin 2.1 %THgb (0.4-20.1) 11/20/22 23:07 Methemoglobin 1.2 % (0.4-1.5) 11/20/22 23:07 Total Hemoglobin 7.9 g/dL (14-18) L 11/20/22 23:07 Sodium 133.0 mmol/L (131-143) 11/20/22 23:07 Potassium 5.3 mmol/L (3.5-5.0) H 11/20/22 23:07 Glucose 122.0 mg/dL (70-115) H 11/20/22 23:07 Ionized Calcium 1.2 mmol/L (1.1-1.4) 11/20/22 23:07 O2 Delivery Device Nc 11/20/22 23:07 O2 Liters/Min 2.0 % 11/20/22 23:07 Electronic Security Technician ID sung 11/20/22 23:07 Sodium 132 mmol/L (136-145) L 11/21/22 05:25 Potassium 5.8 mmol/L (3.5-5.1) H 11/21/22 05:25 Chloride 90 mmol/L (98-107) L 11/21/22 05:25 Carbon Dioxide 25 mmol/L (22-29) 11/21/22 05:25 Anion Gap 22.8 (5-19) H 11/21/22 05:25 BUN 50 mg/dL (6-20) H 11/21/22 05:25 Creatinine 4.9 mg/dL (0.7-1.2) H 11/21/22 05:25 GFR Calculation 12.5 mL/min (90-130) L 11/21/22 05:25 Glucose 96 mg/dL (65-115) 11/21/22 05:25 POC Glucose 104 mg/dL (70-110) 11/21/22 11:32 Calculated Osmolality 287 mOsm/kg (285-295) 11/21/22 05:25 Lactic Acid 1.5 mmol/L (0.5-2.2) 11/20/22 16:25 Uric Acid 3.9 mg/dL (3.4-7.0) 11/20/22 16:25 Calcium 8.2 mg/dL (8.5-10.5) L 11/21/22 05:25 Phosphorus 4.7 mg/dL (2.5-4.5) H 11/21/22 05:25 Magnesium 2.0 mg/dL (1.7-2.3) 11/21/22 05:25 Iron 24 ug/dL (59-158) L 11/21/22 05:25 TIBC 162 mcg/dl 11/21/22 05:25 % Saturation 14.8 % (20-50) L 11/21/22 05:25 Unsat Iron Binding 138 ug/dL (112-347) 11/21/22 05:25 Ferritin 218 ng/mL (30-400) 11/21/22 05:25 Total Bilirubin 0.4 mg/dL (0.15-1.2) 11/21/22 05:25 AST 12 U/L (0-40) 11/21/22 05:25 ALT 6 U/L (0-41) 11/21/22 05:25 Alkaline Phosphatase 103 U/L (40-130) 11/21/22 05:25 C-Reactive Protein 65.5 mg/L (0.0-4.9) H 11/21/22 05:25 Total Protein 7.3 g/dL (6.6-8.7) 11/21/22 05:25 Albumin 2.7 g/dL (3.5-5.2) L 11/21/22 05:25 Globulin 4.6 g/dL (1.3-4.6) 11/21/22 05:25 25-OH Vitamin D Total 15 ng/mL (30-100) L 11/21/22 05:25 PTH Intact 124.2 pg/mL (15-65) H 11/21/22 05:25 Calcium (PTH Intact) 8.0 mg/dL (8.5-10.5) L 11/21/22 05:25 Hep Bs Antigen Non-reactive (Nonreactive) 11/20/22 16:25 Hep Bs Antibody 44.4 (11.5-1000) 11/20/22 16:25 Hepatitis C Antibody Non-reactive (Nonreactive) 11/20/22 16:25 Vitals Last Vital Signs Temp 98.2 F 11/21/22 07:12 Pulse 87 11/21/22 09:00 Resp 17 11/21/22 09:00 BP 105/66 11/21/22 09:00 Pulse Ox 96 11/21/22 08:57 O2 Del Method Nasal Cannula 11/21/22 08:57 O2 Flow Rate 2 11/21/22 08:57 Discharge Plan Discharge Patient Disposition: Home Condition: Stable Prescriptions: New doxycycline hyclate 100 mg tablet 100 mg PO BID 10 Days Qty: 20 0RF amoxicillin-pot clavulanate 875-125 mg tablet 1 tab PO BID Qty: 20 0RF Continued (DME) Wheel Chair See Rx Instructions .Route .MEDSUPPLY Qty: 1 0RF Rx Instructions: As directed HOME (DME) Compression Stockings See Rx Instructions .Route .MEDSUPPLY Qty: 1 0RF Rx Instructions: As directed (DME) [place] boot modification See Rx Instructions .Route .MEDSUPPLY Qty: 1 0RF Rx Instructions: Straps are failing ropinirole 0.25 mg tablet 0.25 mg PO BEDTIME PRN (Reason: Restless Leg(S)) Lokelma 5 gram powder in packet See Rx Instructions .ROUTE .COMPLEX Rx Instructions: 1 packet po daily on , , Sun, Sun - mix with 45 mL of water, drink immediately give other medications 2 hrs before or after this medication oxycodone 5 mg Tablet 5 mg PO Q4H PRN (Reason: Pain) Santyl 250 unit/gram Ointment 1 applic TOPICAL DAILY Rx Instructions: Dressing change to Left BKA daily and PRN atorvastatin 40 mg Tablet 40 mg PO DAILY cilostazol 50 mg Tablet 50 mg PO BID trazodone 100 mg Tablet 100 mg PO BEDTIME Pro-Stat AWC 17-100 gram-kcal/30 mL Liquid 30 ea PO BID ondansetron HCl 4 mg tablet 4 mg PO Q4H PRN (Reason: Nausea) cholecalciferol (vitamin D3) [Vitamin D3] 25 mcg (1,000 unit) Tablet 25 mcg PO QAM sevelamer carbonate 800 mg tablet See Rx Instructions .ROUTE .COMPLEX Rx Instructions: 5 tabs po tid with meals and 4 tabs po bid with snacks venlafaxine [Effexor XR] 75 mg Capsule,Extended Release 24hr 75 mg PO DAILY famotidine 10 mg Tablet 10 mg PO DAILY prochlorperazine 25 mg Suppository 25 mg [place] BID PRN (Reason: Nausea) bisacodyl [Dulcolax (bisacodyl)] 10 mg Suppository 10 mg [place] DAILY PRN (Reason: Constipation) pantoprazole 40 mg Tablet,Delayed Release (Dr/Ec) 40 mg PO DAILY Fleet Enema 19-7 gram/118 mL Enema 118 ml [place] DAILY PRN (Reason: Constipation) folic acid 1 mg Tablet 1 mg PO DAILY hydroxyzine HCl 25 mg Tablet 25 mg PO Q6H PRN (Reason: Anxiety) gabapentin 100 mg Capsule 200 mg PO TID polyethylene glycol 3350 [Miralax] 17 gram/dose Powder 17 g PO BID albuterol sulfate 90 mcg/actuation Hfa Aerosol Inhaler 2 puff INHALATION Q6H PRN (Reason: Shortness Of Breath) B-complex with vitamin C [Vitamin B and C] Capsule 1 cap PO DAILY Afrin (oxymetazoline) 0.05 % Mist 2 spray INTRANASAL Q12H PRN (Reason: Allergy Symptoms) Saccharomyces boulardii 250 mg Capsule 250 mg PO BID brexpiprazole 0.25 mg Tablet 0.25 mg PO DAILY diphenhydramine HCl [Benadryl Allergy] 25 mg tablet 25 mg PO DAILY PRN (Reason: itching) Discharge Orders: Discharge Order (Routine); Ordered 11/21/22 Ordered By: Chris Johansen Referrals: Sulma Wetzel MD [Primary Care Provider] - Patient Instructions: Opioid Safety Discharge Attestations Time Spent in Discharge Care*: greater than 30 min Status at Discharge: Cognitive status at discharge: cognitively intact, Behavioral status at discharge: cooperative, Quality Metrics Clinical Quality Measures [ No reported AMI, CVA or VTE this stay] Coding Level of Care Code Acute Code for Chg Fwd Diagnoses ESRD (end stage renal disease) on dialysis N18.6; Z99.2
--- NOTE | 2022-11-21 11:52 | PM.DCS ---
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 He aslo has a history of chronic ulceration to plantar aspect of right 5th metatarsal base. This was managed in the outpatient setting by podiatry until patient was referred back to wound care. Since the left BKA, the plantar right foot wound has completely healed. The new wound to the lateral aspect of the right foot is new and has only been present the past couple of days. Patient states that it developed during his rehabilitaion for the BKA with physical therapy. The patient presented to the ED today with chief complaint of right leg pain, to which he states is much improved already. After his left BKA he was sent to [facility] he is getting home health services presented to hospital for worsening of right leg pain which he describes as Achilles pain. He was diagnosed with osteomyelitis at the time of admission, he was admitted for possible surgical debridement versus amputation however when he was evaluated by coal crusher operator Dr. Jenkins he recommended oral antibiotics for now for chronic osteomyelitis and outpatient follow-up. Nephrology was consulted for dialysis. Patient tolerated 4 hours of dialysis, he will be discharged on Augmentin and doxycycline 10-day regimen. He will probably need chronic suppressive therapy for his right foot osteomyelitis. Further antibiotic duration could be decided by coal crusher operator. Patient will be discharged home. He remained hemodynamically stable, his blood sugar was low on 11/21 however he never developed any symptoms. He required short stay in ICU for hypoglycemic events. He remained hemodynamically stable. Patient has been counseled by coal crusher operator regarding offloading boot. Local wound care with wound gel and dry sterile dressing -I will place an order for [place] boot to home medical supply to help offload the lateral aspect of the right foot while patient is at rest.? I believe that while he is at rest in bed the way he orients his leg is contributing to the formation of this pressure ulcer. -Patient can continue with PT/OT exercises.? He is to monitor for any worsening of wound or new formation of blisters and contact the podiatry office and inform physical therapy if these do arise Physical Exam Narrative: Awake and alert Getting dialyzed Generalized anasarca Abdominal ascites Dry skin Muscle mass loss S1, S2 Alert Doing well on room air Appropriate mood and affect Discharge Data Studies Completed and Pending Completed Studies During Hospitalization Category Date Time Status XR ankle RT min 3V* [id number] Stat Exams 11/20/22 15:13 Completed XR foot RT min 3V* [id number] Stat Exams 11/20/22 15:13 Completed Pending at discharge Category Date Time Status Blood Culture Stat Lab 11/20/22 16:25 Results Complete Blood Count w/Auto AM LABS Lab 11/22/22 04:00 Ordered Complete Blood Count w/Auto AM LABS Lab 11/23/22 04:00 Ordered Comprehensive Metabolic Panel AM LABS Lab 11/22/22 04:00 Ordered Comprehensive Metabolic Panel AM LABS Lab 11/23/22 04:00 Ordered Magnesium AM LABS Lab 11/22/22 04:00 Ordered Magnesium AM LABS Lab 11/23/22 04:00 Ordered Phosphorus AM LABS Lab 11/22/22 04:00 Ordered Phosphorus AM LABS Lab 11/23/22 04:00 Ordered Radiology Impressions Ankle X-Ray 11/20/22 15:13 IMPRESSION: 1. Mild degenerative change. No fracture or dislocation. Soft tissue swelling about the ankle. Foot X-Ray 11/20/22 15:13 IMPRESSION: 1. Osseous destruction of the proximal fifth metatarsal with soft tissue mass almost surely representing acute osteomyelitis. There may be an associated abscess present. 2. No other sign of bone destruction or acute fracture. Chronic PIP joint dislocation of the second toe. Degenerative changes in the midfoot joints. Laboratory Results WBC 6.0 10^3/uL (4.0-10.0) 11/21/22 05:25 RBC 2.82 10^6/uL (4.1-5.3) L 11/21/22 05:25 Hgb 7.9 g/dL (11.7-16.6) L 11/21/22 05:25 Hct 26.3 % (42.0-52.0) L 11/21/22 05:25 MCV 93.3 fl (80-94) 11/21/22 05:25 MCH 28.0 pg (28.0-34.0) 11/21/22 05:25 MCHC 30.0 g/dL (30.0-36.0) 11/21/22 05:25 RDW 15.7 % (12.1-15.1) H 11/21/22 05:25 Plt Count 198 10^3/cmm (130-400) 11/21/22 05:25 MPV 9.7 fL (7.4-10.4) 11/21/22 05:25 Neut % (Auto) 72.5 % 11/21/22 05:25 Lymph % (Auto) 10.4 % 11/21/22 05:25 [place] % (Auto) 11.2 % 11/21/22 05:25 Eos % (Auto) 4.9 % 11/21/22 05:25 Baso % (Auto) 0.8 % 11/21/22 05:25 Neut # (Auto) 4.33 10^3/uL (1.8-7.7) 11/21/22 05:25 Lymph # (Auto) 0.6 10^3/uL (0.8-4.8) L 11/21/22 05:25 [place] # (Auto) 0.7 10^3/uL (0.2-0.9) 11/21/22 05:25 Eos # (Auto) 0.3 10^3/uL (0.0-0.8) 11/21/22 05:25 Baso # (Auto) 0.1 10^3/uL (0.0-0.1) 11/21/22 05:25 Nucleated RBC % (auto) 0 % 11/21/22 05:25 Nucleated RBCs # 0.0 /100WBC 11/21/22 05:25 ESR 89 mm/hr (0-10) H 11/20/22 16:25 Specimen Type Arterial 11/20/22 23:07 Sample Site Radial, right 11/20/22 23:07 ABG pH 7.38 (7.35-7.45) 11/20/22 23:07 ABG pCO2 48.9 mmHg (35-45) H 11/20/22 23:07 ABG pO2 77.9 mmHg (80.0-100.0) L 11/20/22 23:07 ABG HCO3 29.1 mmol/L (22-26) H 11/20/22 23:07 ABG O2 Saturation 95.7 11/20/22 23:07 ABG Base Excess 3.5 mmol/L (-2.0-2.0) H 11/20/22 23:07 Jesus Test Pos 11/20/22 23:07 A-a O2 Gradient 1.6 mmHg (5-10) L 11/20/22 23:07 Hematocrit 24.2 % (42-52) L 11/20/22 23:07 Hgb O2 Saturation 92.5 % (95-100) L 11/20/22 23:07 Carboxyhemoglobin 2.1 %THgb (0.4-20.1) 11/20/22 23:07 Methemoglobin 1.2 % (0.4-1.5) 11/20/22 23:07 Total Hemoglobin 7.9 g/dL (14-18) L 11/20/22 23:07 Sodium 133.0 mmol/L (131-143) 11/20/22 23:07 Potassium 5.3 mmol/L (3.5-5.0) H 11/20/22 23:07 Glucose 122.0 mg/dL (70-115) H 11/20/22 23:07 Ionized Calcium 1.2 mmol/L (1.1-1.4) 11/20/22 23:07 O2 Delivery Device Nc 11/20/22 23:07 O2 Liters/Min 2.0 % 11/20/22 23:07 Airline Reservationist ID [email or web address] 11/20/22 23:07 Sodium 132 mmol/L (136-145) L 11/21/22 05:25 Potassium 5.8 mmol/L (3.5-5.1) H 11/21/22 05:25 Chloride 90 mmol/L (98-107) L 11/21/22 05:25 Carbon Dioxide 25 mmol/L (22-29) 11/21/22 05:25 Anion Gap 22.8 (5-19) H 11/21/22 05:25 BUN 50 mg/dL (6-20) H 11/21/22 05:25 Creatinine 4.9 mg/dL (0.7-1.2) H 11/21/22 05:25 GFR Calculation 12.5 mL/min (90-130) L 11/21/22 05:25 Glucose 96 mg/dL (65-115) 11/21/22 05:25 POC Glucose 104 mg/dL (70-110) 11/21/22 11:32 Calculated Osmolality 287 mOsm/kg (285-295) 11/21/22 05:25 Lactic Acid 1.5 mmol/L (0.5-2.2) 11/20/22 16:25 Uric Acid 3.9 mg/dL (3.4-7.0) 11/20/22 16:25 Calcium 8.2 mg/dL (8.5-10.5) L 11/21/22 05:25 Phosphorus 4.7 mg/dL (2.5-4.5) H 11/21/22 05:25 Magnesium 2.0 mg/dL (1.7-2.3) 11/21/22 05:25 Iron 24 ug/dL (59-158) L 11/21/22 05:25 TIBC 162 mcg/dl 11/21/22 05:25 % Saturation 14.8 % (20-50) L 11/21/22 05:25 Unsat Iron Binding 138 ug/dL (112-347) 11/21/22 05:25 Ferritin 218 ng/mL (30-400) 11/21/22 05:25 Total Bilirubin 0.4 mg/dL (0.15-1.2) 11/21/22 05:25 AST 12 U/L (0-40) 11/21/22 05:25 ALT 6 U/L (0-41) 11/21/22 05:25 Alkaline Phosphatase 103 U/L (40-130) 11/21/22 05:25 C-Reactive Protein 65.5 mg/L (0.0-4.9) H 11/21/22 05:25 Total Protein 7.3 g/dL (6.6-8.7) 11/21/22 05:25 Albumin 2.7 g/dL (3.5-5.2) L 11/21/22 05:25 Globulin 4.6 g/dL (1.3-4.6) 11/21/22 05:25 25-OH Vitamin D Total 15 ng/mL (30-100) L 11/21/22 05:25 PTH Intact 124.2 pg/mL (15-65) H 11/21/22 05:25 Calcium (PTH Intact) 8.0 mg/dL (8.5-10.5) L 11/21/22 05:25 Hep Bs Antigen Non-reactive (Nonreactive) 11/20/22 16:25 Hep Bs Antibody 44.4 (11.5-1000) 11/20/22 16:25 Hepatitis C Antibody Non-reactive (Nonreactive) 11/20/22 16:25 Vitals Last Vital Signs Temp 98.2 F 11/21/22 07:12 Pulse 87 11/21/22 09:00 Resp 17 11/21/22 09:00 BP 105/66 11/21/22 09:00 Pulse Ox 96 11/21/22 08:57 O2 Del Method Nasal Cannula 11/21/22 08:57 O2 Flow Rate 2 11/21/22 08:57 Discharge Plan Discharge Patient Disposition: Home Condition: Stable Prescriptions: New doxycycline hyclate 100 mg tablet 100 mg PO BID 10 Days Qty: 20 0RF amoxicillin-pot clavulanate 875-125 mg tablet 1 tab PO BID Qty: 20 0RF Continued (DME) Wheel Chair See Rx Instructions .Route .MEDSUPPLY Qty: 1 0RF Rx Instructions: As directed HOME (DME) Compression Stockings See Rx Instructions .Route .MEDSUPPLY Qty: 1 0RF Rx Instructions: As directed (DME) [place] boot modification See Rx Instructions .Route .MEDSUPPLY Qty: 1 0RF Rx Instructions: Straps are failing ropinirole 0.25 mg tablet 0.25 mg PO BEDTIME PRN (Reason: Restless Leg(S)) Lokelma 5 gram powder in packet See Rx Instructions .ROUTE .COMPLEX Rx Instructions: 1 packet po daily on , , Sun, Sun - mix with 45 mL of water, drink immediately give other medications 2 hrs before or after this medication oxycodone 5 mg Tablet 5 mg PO Q4H PRN (Reason: Pain) Santyl 250 unit/gram Ointment 1 applic TOPICAL DAILY Rx Instructions: Dressing change to Left BKA daily and PRN atorvastatin 40 mg Tablet 40 mg PO DAILY cilostazol 50 mg Tablet 50 mg PO BID trazodone 100 mg Tablet 100 mg PO BEDTIME Pro-Stat AWC 17-100 gram-kcal/30 mL Liquid 30 ea PO BID ondansetron HCl 4 mg tablet 4 mg PO Q4H PRN (Reason: Nausea) cholecalciferol (vitamin D3) [Vitamin D3] 25 mcg (1,000 unit) Tablet 25 mcg PO QAM sevelamer carbonate 800 mg tablet See Rx Instructions .ROUTE .COMPLEX Rx Instructions: 5 tabs po tid with meals and 4 tabs po bid with snacks venlafaxine [Effexor XR] 75 mg Capsule,Extended Release 24hr 75 mg PO DAILY famotidine 10 mg Tablet 10 mg PO DAILY prochlorperazine 25 mg Suppository 25 mg [place] BID PRN (Reason: Nausea) bisacodyl [Dulcolax (bisacodyl)] 10 mg Suppository 10 mg [place] DAILY PRN (Reason: Constipation) pantoprazole 40 mg Tablet,Delayed Release (Dr/Ec) 40 mg PO DAILY Fleet Enema 19-7 gram/118 mL Enema 118 ml [place] DAILY PRN (Reason: Constipation) folic acid 1 mg Tablet 1 mg PO DAILY hydroxyzine HCl 25 mg Tablet 25 mg PO Q6H PRN (Reason: Anxiety) gabapentin 100 mg Capsule 200 mg PO TID polyethylene glycol 3350 [Miralax] 17 gram/dose Powder 17 g PO BID albuterol sulfate 90 mcg/actuation Hfa Aerosol Inhaler 2 puff INHALATION Q6H PRN (Reason: Shortness Of Breath) B-complex with vitamin C [Vitamin B and C] Capsule 1 cap PO DAILY Afrin (oxymetazoline) 0.05 % Mist 2 spray INTRANASAL Q12H PRN (Reason: Allergy Symptoms) Saccharomyces boulardii 250 mg Capsule 250 mg PO BID brexpiprazole 0.25 mg Tablet 0.25 mg PO DAILY diphenhydramine HCl [Benadryl Allergy] 25 mg tablet 25 mg PO DAILY PRN (Reason: itching) Discharge Orders: Discharge Order (Routine); Ordered 11/21/22 Ordered By: Chris Johansen Referrals: Sulma Wetzel MD [Primary Care Provider] - Patient Instructions: Opioid Safety Discharge Attestations Time Spent in Discharge Care*: greater than 30 min Status at Discharge: Cognitive status at discharge: cognitively intact, Behavioral status at discharge: cooperative, Quality Metrics Clinical Quality Measures [ No reported AMI, CVA or VTE this stay] Coding Level of Care Code Acute Code for Chg Fwd Diagnoses ESRD (end stage renal disease) on dialysis N18.6; Z99.2
--- NOTE | 2022-11-21 12:06 | PC.NURSE ---
Dr. Jenkins at bedside, advised no surgical intervention reacquired, Dr. Johansen placed D/C orders. report called to [facility]
--- NOTE | 2022-11-21 13:20 | PC.NURSE ---
All D/C instructions educated to patient. Unable to get ahLes Pay[facility] staff to update on wound care orders, orders printed and sent in D/C packet. patient out of unit waiting on ready transport ride, patient refused to wait in room, patient signed D/C form
[2022-11-21 14:13] LABS: SARS Covid-2 Antigen negative (Negative)
== END 2022-11-21 13:23 | disposition skilled nursing facility (03) | DRG 539 ==
LOC: ER 17:32 → MEDSURG 19:57 → ICU 11-21 03:13
PROVIDERS: Internal Medicine; Internal Medicine Nephrology; Physician Assistant; Admitting Provider Internal Medicine; Emergency Provider Emergency Medicine; PCP Internal Medicine; Visit Provider Internal Medicine
DX: M86.671 Other chronic osteomyelitis, right ankle and foot (principal); N18.6 End stage renal disease; E66.2 Morbid (severe) obesity with alveolar hypoventilation; I12.0 Hypertensive chronic kidney disease with stage 5 chronic kidney disease or end stage renal disease; J96.12 Chronic respiratory failure with hypercapnia; J96.11 Chronic respiratory failure with hypoxia; L03.115 Cellulitis of right lower limb; E11.51 Type 2 diabetes mellitus with diabetic peripheral angiopathy without gangrene; E11.40 Type 2 diabetes mellitus with diabetic neuropathy, unspecified; E11.621 Type 2 diabetes mellitus with foot ulcer; L97.511 Non-pressure chronic ulcer of other part of right foot limited to breakdown of skin; E11.22 Type 2 diabetes mellitus with diabetic chronic kidney disease; Z99.2 Dependence on renal dialysis; Z89.512 Acquired absence of left leg below knee; Z79.891 Long term (current) use of opiate analgesic; D63.1 Anemia in chronic kidney disease; Z86.74 Personal history of sudden cardiac arrest; J44.9 Chronic obstructive pulmonary disease, unspecified; Z85.528 Personal history of other malignant neoplasm of kidney; Z68.33 Body mass index [BMI] 33.0-33.9, adult; Z87.01 Personal history of pneumonia (recurrent); E87.5 Hyperkalemia
CPT/HCPCS: 12345; 36415; 36416; 36600; 73610; 73630; 80048; 80051; 80053; 82306; 82310; 82330; 82728; 82805; 82962; 83540; 83550; 83605; 83735; 83970; 84100; 84550; 85025; 85651; 86140; 86706; 86803; 87040; 87340; 87426; 90935; 96365; 96366; 96367; 96375; 96376; 99285; J0612; J1815; J2405; J2543; J3372

== ENCOUNTER 2022-11-22 11:02 | Day surgery (SDC) | payer MEDICARE, MEDICAID, SELFPAY ==
[2022-11-22 11:10] VITALS: BP 141/73; PULSE 98; RESP 16; TEMP 36.8; O2SAT 94
[2022-11-22 11:17] VITALS: BMI 33.0
--- NOTE | 2022-11-22 11:19 | US_ITS ---
WS: [id number] ULTRASOUND-GUIDED 8000 PARACENTESIS Procedure, risks, and complications have been explained to the patient. Consent is obtained. Utilizing aseptic technique and 1% buffered lidocaine, a small dermatome was made through which a 5 F rench Yueh catheter was inserted. Approximately 8000 ml of clear peritoneal fluid was obtained witho ut difficulty. No complications encountered. US/US paracentesis abd w [id number] IMPRESSION: Uncomplicated paracentesis yielding 8000 ml of peritoneal fluid.
[2022-11-22] MEDS: albumin 75 G/300 ML BAG 300 G IV (12:19)
== END 2022-11-22 13:45 | disposition home or self-care (01) ==
LOC: GILAB 11:03
PROVIDERS: PCP Internal Medicine; Visit Provider Internal Medicine
PROC: (CPT 49082; principal; 2022-11-22 12:00)
DX: R18.8 Other ascites (principal)
CPT/HCPCS: 49083; P9046

== ENCOUNTER → 2022-11-24 11:08 | Outpatient (BNVA) | payer MEDICARE, MEDICAID, SELFPAY | PROVIDERS: PCP Internal Medicine; Visit Provider Podiatrist Foot & Ankle Surgery | DX: E11.621 Type 2 diabetes mellitus with foot ulcer (principal); L97.512 Non-pressure chronic ulcer of other part of right foot with fat layer exposed; Z89.512 Acquired absence of left leg below knee; M86.672 Other chronic osteomyelitis, left ankle and foot | CPT/HCPCS: 99213 ==

== ENCOUNTER → 2022-11-27 14:08 | Outpatient (BNVA) | payer MEDICARE, MEDICAID, SELFPAY | PROVIDERS: PCP Internal Medicine; Visit Provider Student in an Organized Health Care Education/Training Program | DX: I97.89 Other postprocedural complications and disorders of the circulatory system, not elsewhere classified (principal); I96 Gangrene, not elsewhere classified; Z89.512 Acquired absence of left leg below knee; Z47.89 Encounter for other orthopedic aftercare | CPT/HCPCS: 99024 ==

== ENCOUNTER → 2022-11-29 13:06 | Outpatient (BNVA) | payer MEDICARE, MEDICAID, SELFPAY | PROVIDERS: PCP Internal Medicine; Visit Provider Thoracic Surgery (Cardiothoracic Vascular Surgery) | DX: T87.81 Dehiscence of amputation stump (principal); Y83.8 Other surgical procedures as the cause of abnormal reaction of the patient, or of later complication, without mention of misadventure at the time of the procedure; I96 Gangrene, not elsewhere classified | CPT/HCPCS: 11042; 99213 ==

== ENCOUNTER 2022-12-06 11:55 | Day surgery (SDC) | payer MEDICARE, MEDICAID, SELFPAY ==
[2022-12-04 14:39] VITALS: BMI 34.2
--- NOTE | 2022-12-06 12:07 | US_ITS ---
WS: [id number] ULTRASOUND-GUIDED THERAPEUTIC PARACENTESIS Procedure, risks, and complications have been explained to the patient. Consent is obtained. Utilizing aseptic technique and 1% buffered lidocaine, a small dermatome was made through which a 5 F rench Yueh catheter was inserted. Approximately 3400 ml of clear peritoneal fluid was obtained witho ut difficulty. No complications encountered. US/US paracentesis abd w [id number] IMPRESSION: Uncomplicated paracentesis yielding 3400 ml of peritoneal fluid.
[2022-12-06 12:10] VITALS: BP 146/82; PULSE 87; RESP 18; TEMP 36.1; O2SAT 95
== END 2022-12-06 13:39 | disposition home or self-care (01) ==
LOC: GILAB 12:01
PROVIDERS: Radiology Diagnostic Radiology; PCP Internal Medicine; Visit Provider Internal Medicine Nephrology
PROC: (CPT 49082; principal; 2022-12-06 12:00)
DX: R18.8 Other ascites (principal); T87.81 Dehiscence of amputation stump; Y83.8 Other surgical procedures as the cause of abnormal reaction of the patient, or of later complication, without mention of misadventure at the time of the procedure; Z89.512 Acquired absence of left leg below knee; I96 Gangrene, not elsewhere classified
CPT/HCPCS: 11042; 49083; P9047

== ENCOUNTER → 2022-12-13 14:05 | Outpatient (BNVA) | payer MEDICARE, MEDICAID, SELFPAY | PROVIDERS: PCP Internal Medicine; Visit Provider Thoracic Surgery (Cardiothoracic Vascular Surgery) | DX: E11.622 Type 2 diabetes mellitus with other skin ulcer (principal); I96 Gangrene, not elsewhere classified; L97.822 Non-pressure chronic ulcer of other part of left lower leg with fat layer exposed | CPT/HCPCS: 11042 ==

== ENCOUNTER → 2022-12-15 11:18 | Outpatient (BNVA) | payer MEDICARE, MEDICAID, SELFPAY | PROVIDERS: PCP Internal Medicine; Visit Provider Podiatrist Foot & Ankle Surgery | DX: E11.9 Type 2 diabetes mellitus without complications (principal); Z89.512 Acquired absence of left leg below knee; M86.671 Other chronic osteomyelitis, right ankle and foot | CPT/HCPCS: 99213 ==

== ENCOUNTER 2022-12-20 10:56 | Day surgery (SDC) | payer MEDICARE, MEDICAID, SELFPAY ==
--- NOTE | 2022-12-20 11:10 | US_ITS ---
WS: [id number] ULTRASOUND-GUIDED PARACENTESIS CLINICAL INFORMATION: ascites COMPARISON: None. Procedure Informed consent: The risks, benefits, and alternatives of the procedure were discussed with the riya ent. Verbal and written consent was obtained. Timeout: A timeout was performed to confirm the correct patient, procedure, and site. Preparation: A suitable skin site was identified. The patient was prepped and draped in usual sterile fashion. Lidocaine 1% was used for local anesthesia. Catheter: 4 Japanese One-step Yueh catheter. Side: RIGHT Lower quadrant. Fluid Volume: 7200 ml Color: Clear yellow DISPOSITION: Discarded safely. Complications: None. Patient disposition: Discharged from the department in stable condition. US/US paracentesis abd w [id number] IMPRESSION: Uncomplicated ultrasound-guided paracentesis. Removal of 7200 cc
[2022-12-20 11:20] VITALS: BP 133/6; PULSE 67; RESP 16; TEMP 36.2; O2SAT 97; BMI 33.0
[2022-12-20] MEDS: albumin 75 G/300 ML BAG 300 G IV (12:38)
[2022-12-20] MEDS: lidocaine 1% INJ 10 mL (per mL) INTRADERMA (12:41)
[2022-12-20] MEDS: lidocaine 1% INJ 10 mL (per mL) 5 ML INTRADERMA (12:52)
== END 2022-12-20 13:43 | disposition home or self-care (01) ==
LOC: GILAB 10:58
PROVIDERS: Radiology Neuroradiology; PCP Internal Medicine; Visit Provider Internal Medicine
PROC: (CPT 49082; principal; 2022-12-20 12:00)
DX: R18.8 Other ascites (principal); T87.81 Dehiscence of amputation stump; Y83.8 Other surgical procedures as the cause of abnormal reaction of the patient, or of later complication, without mention of misadventure at the time of the procedure; Z89.512 Acquired absence of left leg below knee; L98.492 Non-pressure chronic ulcer of skin of other sites with fat layer exposed
CPT/HCPCS: 11042; 49083; 97597; A6212; P9046

== ENCOUNTER 2022-12-28 06:56 | Emergency (ER) | payer MEDICARE, MEDICAID, SELFPAY ==
[2022-12-28 07:07] VITALS: BP 147/91; PULSE 88; TEMP 36.8; O2SAT 92; BMI 33.0
--- NOTE | 2022-12-28 07:17 | ED_ITS ---
HPI - Wound/Laceration General: Chief Complaint: Extremity Injury, Lower Stated Complaint: Lac leg Time Seen by Provider: 12/28/22 07:05 History of Present Illness: Patient is a 52-year-old male who comes to the ED with laceration to right leg. Injury occurred just prior to arrival. Patient has an quwax-[id number] amputation on left leg and uses a wheelchair. He was transferring from vehicle to wheelchair when his right leg bumped the edge of the wheelchair causing a cut on right lower leg. He was going to dialysis at the time in the clinic bandaged patient up and told to come here for evaluation of a cut on the right leg. Denies any other injury, head trauma or loss of consciousness. Patient is not on a blood thinner. He is unsure of last tetanus shot. Associated symptoms: Denies chills, fever(s), nausea or vomiting Review of Systems Const: Denies: fever(s), chills or fatigue Eyes: Denies: change in vision or eye discomfort ENMT: Denies: throat pain, odynophagia, nasal discharge or nasal congestion Card: Denies: chest pain, palpitations, edema, swelling of feet/ankles, dyspnea on exertion or orthopnea Resp: Denies: dyspnea, productive cough or non-productive cough GI: Denies: abdominal pain, nausea, vomiting, diarrhea, constipation or hematochezia : Denies: flank pain, difficulty urinating, dysuria or hematuria Musc: Denies: neck pain, back pain or extremity swelling Skin/Breast: Reports: new lesions (Laceration to right lower leg); Denies: rash Neuro: Denies: headache(s), numbness in extremities or weakness in extremities PFS ED PFSH: Medical History Accelerated hypertension Acquired equinovarus deformity of left foot Anemia Anemia of chronic disease BMI 50.0-59.9, adult Cardiac arrest (~07/2020) when had covid Cellulitis Cellulitis CHF (congestive heart failure), NYHA class III Chronic osteomyelitis of right foot Chronic respiratory failure with hypoxia and hypercapnia Chronic ulcer of left foot with fat layer exposed Chronic venous insufficiency COPD (chronic obstructive pulmonary disease) Diabetes Diabetic foot ulcers 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, limited to breakdown of skin ESRD (end stage renal disease) on dialysis First degree heart block Foot osteomyelitis, left Foot osteomyelitis, right Fracture of fifth metatarsal bone of left foot Fracture of fourth metatarsal bone of left foot Fracture, thoracic vertebra T7-T8 Gas gangrene History of left below knee amputation History of renal cell carcinoma Hypertension Hypovolemic shock Lung nodule Morbid obesity with BMI of 40.0-44.9, adult Neuropathy Non-healing ulcer of right foot with fat layer exposed Non-pressure chronic ulcer of other part of right foot with necrosis of muscle Obesity hypoventilation syndrome Obstructive sleep apnea non compliant with home bipap/cpap Osteomyelitis Osteomyelitis Pneumonia due to 2019-nCoV (~07/2020) Pre-ulcerative calluses PVD (peripheral vascular disease) Renal cell carcinoma History bilateral renal cell carcinoma 2007 then recurrence on the contralateral side 2011. No recurrence for long-term follow-up with some suspicion on CT scan April 2020. Restrictive lung disease Type 2 diabetes mellitus Type 2 diabetes mellitus with diabetic polyneuropathy 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 Ulcer of sacral region, stage 1 Urinary retention Vitamin D deficiency Xerosis of skin Surgical History H/O partial nephrectomy bilateral H/O wisdom tooth extraction History of cataract surgery Hx of lymph node excision Status post below-knee amputation of left lower extremity Family History Father , at age 65 Diabetes Cancer Metastatic prostate cancer to liver Mother , at age 72 Diabetes Grandfather Diabetes Cancer Other Anemia Hyperlipidemia Social History Smoking and tobacco status: never smoked Second hand smoke exposure: Yes Smoking risk assessment/counseling performed?: Yes Alcohol intake: current Alcohol intake frequency: holidays/special occasions only Substance/Drug Use: never Lives independently: Yes Household members: spouse Housing: House Marital status: service: No Current occupational status: retired Pets and animals: Yes Do you think of yourself as: Straight/Heterosexual Current gender identity: Male Physical Exam Const: COMMON NORMALS: no acute distress, patient oriented x3 and alert HENMT: COMMON NORMALS: normocephalic HEAD & SCALP: normocephalic MOUTH: Normal oral and palatal mucosa present THROAT: posterior oropharynx normal and uvula midline Neck/C-Spine: COMMON NORMALS: supple GENERAL: Yes normal visual inspection Resp: COMMON NORMALS: normal respiratory effort, No retractions, No use of accessory muscles and clear to auscultation bilaterally AUSCULTATION: clear to auscultation bilaterally Cardio: COMMON NORMALS: regular rate, regular rhythm, S1 normal heart sound present, S2 normal heart sound present, No gallops present (Cardio), No clicks present (Cardio), No murmurs present (Cardio) and Peripheral pulses 2+ throughout RATE: regular rate RHYTHM: regular rhythm HEART SOUNDS: S1 normal heart sound present and S2 normal heart sound present PERIPHERAL PULSES: Peripheral pulses 2+ throughout GI: COMMON NORMALS: Normal to inspection, nondistended, normoactive bowel sounds present, Soft to palpation, non-tender and no masses PALPATION: Yes Soft to palpation : COMMON NORMALS: Yes no CVA tenderness BLADDER/KIDNEY EXAM: Yes no CVA tenderness Back/Pelvis: COMMON NORMALS: no CVA tenderness Extremity: NARRATIVE EXTREMITY EXAM: Right lower leg?small superficial linear laceration approximately 1.5 cm in length. Wound is very superficial and there is no active bleeding. Wound will not close with sutures and will be allowed to heal by secondary intention. Patient has 2+ pitting edema in right lower leg. Left leg?iodpx-ibl-[id number] amputation. Neuro: COMMON NORMALS: patient oriented x3 SENSORIUM/ORIENTATION: Yes alert GAIT: Yes Normal gait present Skin: GENERAL SKIN EXAM: dry skin Course Vital Signs: Vital signs: Vital Signs Temperature 98.3 F 12/28/22 07:07 Pulse Rate 86 12/28/22 09:07 Respiratory Rate 19 H 12/28/22 09:07 Blood Pressure 133/83 12/28/22 09:07 Pulse Oximetry 95 12/28/22 09:07 Oxygen Delivery Me thod Room Air 12/28/22 07:07 MDM - Wound/Laceration Medical Decision Making Patient is a 52-year-old male who comes to the ED with laceration to right leg. Injury occurred just prior to arrival. Patient has an [id number]-[id number] amputation on left leg and uses a wheelchair. He was transferring from vehicle to wheelchair when his right leg bumped the edge of the wheelchair causing a cut on right lower leg. He was going to dialysis at the time in the clinic bandaged patient up and told to come here for evaluation of a cut on the right leg. Denies any other injury, head trauma or loss of consciousness. Patient is not on a blood thinner. He is unsure of last tetanus shot. Right lower leg?small superficial linear laceration approximately 1.5 cm in length. Wound is very superficial and there is no active bleeding. Wound will not close with sutures and will be allowed to heal by secondary intention. Patient has 2+ pitting edema in right lower leg. Vitals are stable. Patient's wound was cleaned and irrigated by nurse and then triple antibiotic ointment was applied on wound and covered with bandage. Patient was informed on how to care for wound at home. He was given updated tetanus shot here in the ED and was stable for discharge home. He was sent home with a prophylactic prescription for Keflex. Return to ED precautions given. Patient understood and agreed with plan. Discharge Plan Discharge Patient Disposition: Home Clinical Impression: Laceration Condition: Stable Prescriptions: New cephalexin 500 mg capsule 500 mg PO Q6H 7 Days Qty: 28 0RF No Action (DME) Wheel Chair See Rx Instructions .Route .MEDSUPPLY Qty: 1 0RF Rx Instructions: As directed HOME (DME) Compression Stockings See Rx Instructions .Route .MEDSUPPLY Qty: 1 0RF Rx Instructions: As directed (DME) coquille boot modification See Rx Instructions .Route .MEDSUPPLY Qty: 1 0RF Rx Instructions: Straps are failing (DME) diabetic shoes with 3 heat molded insoles See Rx Instructions .Route .MEDSUPPLY Qty: 1 0RF Rx Instructions: As directed to HOME (DME) Prevalon boot See Rx Instructions .Route .MEDSUPPLY Qty: 1 0RF Rx Instructions: As directed ropinirole 0.25 mg tablet 0.25 mg PO BEDTIME PRN (Reason: Restless Leg(S)) Lokelma 5 gram powder in packet See Rx Instructions .ROUTE .COMPLEX Rx Instructions: 1 packet po daily on es, Th, Fri, Sun - mix with 45 mL of water, drink immediately give other medications 2 hrs before or after this medication oxycodone 5 mg Tablet 5 mg PO Q4H PRN (Reason: Pain) Santyl 250 unit/gram Ointment 1 applic TOPICAL DAILY Rx Instructions: Dressing change to Left BKA daily and PRN atorvastatin 40 mg Tablet 40 mg PO DAILY cilostazol 50 mg Tablet 50 mg PO BID trazodone 100 mg Tablet 100 mg PO BEDTIME Pro-Stat AWC 17-100 gram-kcal/30 mL Liquid 30 ea PO BID amoxicillin-pot clavulanate 875-125 mg tablet 1 tab PO BID Qty: 20 0RF ondansetron HCl 4 mg tablet 4 mg PO Q4H PRN (Reason: Nausea) cholecalciferol (vitamin D3) [Vitamin D3] 25 mcg (1,000 unit) Tablet 25 mcg PO QAM sevelamer carbonate 800 mg tablet See Rx Instructions .ROUTE .COMPLEX Rx Instructions: 5 tabs po tid with meals and 4 tabs po bid with snacks venlafaxine [Effexor XR] 75 mg Capsule,Extended Release 24hr 75 mg PO DAILY famotidine 10 mg Tablet 10 mg PO DAILY prochlorperazine 25 mg Suppository 25 mg DE BID PRN (Reason: Nausea) bisacodyl [Dulcolax (bisacodyl)] 10 mg Suppository 10 mg DE DAILY PRN (Reason: Constipation) pantoprazole 40 mg Tablet,Delayed Release (Dr/Ec) 40 mg PO DAILY Fleet Enema 19-7 gram/118 mL Enema 118 ml DE DAILY PRN (Reason: Constipation) folic acid 1 mg Tablet 1 mg PO DAILY hydroxyzine HCl 25 mg Tablet 25 mg PO Q6H PRN (Reason: Anxiety) gabapentin 100 mg Capsule 200 mg PO TID polyethylene glycol 3350 [Miralax] 17 gram/dose Powder 17 g PO BID albuterol sulfate 90 mcg/actuation Hfa Aerosol Inhaler 2 puff INHALATION Q6H PRN (Reason: Shortness Of Breath) B-complex with vitamin C Capsule 1 cap PO DAILY Afrin (oxymetazoline) 0.05 % Mist 2 spray INTRANASAL Q12H PRN (Reason: Allergy Symptoms) Saccharomyces boulardii 250 mg Capsule 250 mg PO BID brexpiprazole 0.25 mg Tablet 0.25 mg PO DAILY diphenhydramine HCl [Benadryl Allergy] 25 mg tablet 25 mg PO DAILY PRN (Reason: itching) Discharge Orders: Discharge ED (Routine); Ordered 12/28/22 Ordered By: John Crane Referrals: Sulma Wetzel MD [Primary Care Provider] - Discharge Diet: Regular Discharge Activity: Increase activity as tolerated Activity Restrictions/Additional Instructions: Follow-up with medical provider as directed in the next 3 to 5 days for reevaluation. Clean wound daily with mild soap and water and then apply triple antibiotic ointment over wound and cover with bandage. Take medications as prescribed. Return to the ER or your medical provider if condition worsens. Please read and understand discharge instructions. Thank you for choosing [facility] for your healthcare needs today. Please realize this is an emergency room and that we are providing you with a medical screening exam and this may not be complete and all inclusive of all the testing and or work up that you may need to determine your ailment or severity of your illness. It is very important that you follow up as instructed or that you return to the Emergency Department should you have concerns or if your condition changes or worsens in any way. Coding Level of Care Code ED Development Mgr for Patricia Reid
[2022-12-28 07:45] VITALS: BP 133/83; PULSE 86; RESP 19; O2SAT 95
[2022-12-28] MEDS: tetanus-dipt-pertussis 0.5 mL SDV IM (07:49)
[2022-12-28] MEDS: neomycin-poly-bacitracin oint 28 gm 1 APPLIC TOPICAL (07:51)
[2022-12-28 09:07] VITALS: BP 133/83; PULSE 86; RESP 19; O2SAT 95
== END 2022-12-28 09:09 | disposition home or self-care (01) ==
PROVIDERS: Emergency Provider Physician Assistant; PCP Internal Medicine
DX: S81.811A Laceration without foreign body, right lower leg, initial encounter (principal); I13.2 Hypertensive heart and chronic kidney disease with heart failure and with stage 5 chronic kidney disease, or end stage renal disease; E11.22 Type 2 diabetes mellitus with diabetic chronic kidney disease; N18.6 End stage renal disease; I50.9 Heart failure, unspecified; Z99.2 Dependence on renal dialysis; J44.9 Chronic obstructive pulmonary disease, unspecified; Z85.528 Personal history of other malignant neoplasm of kidney; Z90.5 Acquired absence of kidney; Z77.22 Contact with and (suspected) exposure to environmental tobacco smoke (acute) (chronic); Z89.612 Acquired absence of left leg above knee; W22.8XXA Striking against or struck by other objects, initial encounter; Z23 Encounter for immunization
CPT/HCPCS: 90471; 90715; 99283

== ENCOUNTER 2023-01-02 05:41 | Inpatient (IN) | payer MEDICARE, MEDICAID, SELFPAY ==
[2023-01-02] VITALS (12 sets, daily range): BP systolic 102–147; BP diastolic 56–93; PULSE 71–87; RESP 16–19; TEMP 36.4–37.1; O2SAT 91–100; BMI 34.2
[2023-01-02 05:59] LABS: Basophils % 0.6 %; Eosinophils # 0.6 10^3/uL (0.0-0.8); Eosinophils % 11.6 %; Hemoglobin 7.7 g/dL (11.7-16.6); Lymphocytes # 0.9 10^3/uL (0.8-4.8); Lymphocytes % 15.6 %; Mean Corpuscular HGB Conc 29.6 g/dL (30.0-36.0); Mean Corpuscular Hemoglobin 27.1 pg (28.0-34.0); Mean Corpuscular Volume 91.5 fl (80-94); Monocytes # 0.7 10^3/uL (0.2-0.9); Monocytes % 12.1 %; Neutrophils # 3.26 10^3/uL (1.8-7.7); Neutrophils % 59.9 %; Nucleated Red Blood Cells % 0 %; Platelet Count 150 10^3/cmm (130-400); Red Blood Count 2.84 10^6/uL (4.1-5.3); Red Cell Distribution Width 18.1 % (12.1-15.1); White Blood Count 5.4 10^3/uL (4.0-10.0)
--- NOTE | 2023-01-02 06:01 | ED_ITS ---
HPI - Nausea/Vomiting/Diarrhea General: Chief complaint: ER Hold Stated complaint: DIARRHEA X 1 WEEK Time Seen by Provider: 01/02/23 05:44 Source: patient Mode of arrival: EMS History of Present Illness: 52-year-old male presents emergency room with complete lanes of persistent diarrhea for the last week. He recently had a left below the knee amputation he has been on Keflex for period of time he is off the Keflex down. Denies any hematochezia melena hematemesis coffee-ground emesis. He has noticed blood when he wipes after a bowel movement he believes that is from chronic irritation in the perineal area. He has not had any fever sweats chills no chest pain or shortness of breath patient has developed ascites and on 524 had a therapeutic paracentesis. MD elicited complaint: diarrhea Onset (ago): week(s) (1) Description of diarrhea: watery and semi-solid Associated nausea: Yes Associated abdominal pain: No Exacerbating factors: none Relieving factors: none Associated symtoms: Reports bloating, fatigue and nausea; Denies anxiety, change in vision, chest pain, cough, diaphoresis, decreased urine output, dizziness, epistaxis, fecal incontinence, fevers/chills, headache(s), anorexia, malaise, myalgias, numbness, palpitations, rash, short of breath, tenesmus, tinnitus, weakness or other Review of Systems Const: Reports: fatigue; Denies: fever(s), chills, malaise or diaphoresis Eyes: Denies: change in vision ENMT: Denies: tinnitus or epistaxis Card: Denies: chest pain or palpitations Resp: Denies: dyspnea, productive cough or non-productive cough GI: Reports: nausea, diarrhea and bloating; Denies: abdominal pain or fecal incontinence Skin/Breast: Denies: rash or pruritus Neuro: Denies: headache(s) or dizziness Psych: Denies: anxiety PFSH ED PFSH: Medical History Accelerated hypertension Acquired equinovarus deformity of left foot Anemia Anemia of chronic disease BMI 50.0-59.9, adult Cardiac arrest (~07/2020) when had covid Cellulitis Cellulitis CHF (congestive heart failure), NYHA class III Chronic osteomyelitis of right foot Chronic respiratory failure with hypoxia and hypercapnia Chronic ulcer of left foot with fat layer exposed Chronic venous insufficiency COPD (chronic obstructive pulmonary disease) Diabetes Diabetic foot ulcers 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, limited to breakdown of skin ESRD (end stage renal disease) on dialysis First degree heart block Foot osteomyelitis, left Foot osteomyelitis, right Fracture of fifth metatarsal bone of left foot Fracture of fourth metatarsal bone of left foot Fracture, thoracic vertebra T7-T8 Gas gangrene History of left below knee amputation History of renal cell carcinoma Hypertension Hypovolemic shock Lung nodule Morbid obesity with BMI of 40.0-44.9, adult Neuropathy Non-healing ulcer of right foot with fat layer exposed Non-pressure chronic ulcer of other part of right foot with necrosis of muscle Obesity hypoventilation syndrome Obstructive sleep apnea non compliant with home bipap/cpap Osteomyelitis Osteomyelitis Pneumonia due to 2018-nCoV (~07/2020) Pre-ulcerative calluses PVD (peripheral vascular disease) Renal cell carcinoma History bilateral renal cell carcinoma 2007 then recurrence on the contralateral side 2011. No recurrence for long-term follow-up with some suspicion on CT scan April 2020. Restrictive lung disease Type 2 diabetes mellitus Type 2 diabetes mellitus with diabetic polyneuropathy 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 Ulcer of sacral region, stage 1 Urinary retention Vitamin D deficiency Xerosis of skin Surgical History H/O partial nephrectomy bilateral H/O wisdom tooth extraction History of cataract surgery Hx of lymph node excision Status post below-knee amputation of left lower extremity Family History Father , at age 65 Diabetes Cancer Metastatic prostate cancer to liver Mother , at age 72 Diabetes Grandfather Diabetes Cancer Other Anemia Hyperlipidemia Social History Smoking and tobacco status: never smoked Second hand smoke exposure: Yes Smoking risk assessment/counseling performed?: Yes Alcohol intake: current Alcohol intake frequency: holidays/special occasions only Substance/Drug Use: never Lives independently: Yes Household members: spouse Housing: House Marital status: service: No Current occupational status: retired Pets and animals: Yes Do you think of yourself as: Straight/Heterosexual Current gender identity: Male Physical Exam Const: GENERAL APPEARANCE: cooperative and comfortable ORIENTATION/CONSCIOUSNESS: Yes awake, Yes oriented to person, Yes oriented to place and Yes oriented to time HENMT: COMMON NORMALS: normocephalic, atraumatic and hearing grossly normal bilaterally HEAD & SCALP: normocephalic and atraumatic Resp: COMMON NORMALS: normal respiratory effort, No retractions, No use of accessory muscles and clear to auscultation bilaterally AUSCULTATION: clear to auscultation bilaterally Cardio: COMMON NORMALS: regular rate, regular rhythm and No murmurs present (Cardio) RATE: regular rate RHYTHM: regular rhythm GI: COMMON NORMALS: No hepatosplenomegaly present INSPECTION: Yes Anasarca, Yes abdominal distension and Yes Fluid wave present AUSCULTATION: Yes normoactive bowel sounds PALPATION: No Tenderness to palpation present (GI), No Guarding due to palpation present (GI) and Yes No hepatosplenomegaly present PERCUSSION: Fluid wave present Extremity: COMMON NORMALS: normal to inspection, capillary refill normal, no clubbing, cyanosis or edema, no calf tenderness and no pedal edema Neuro: SENSORIUM/ORIENTATION: Yes oriented to person, Yes oriented to place and Yes oriented to time Skin: COMMON NORMALS: no rashes or lesions noted GENERAL SKIN EXAM: no rashes or lesions noted Course Vital Signs: Vital signs: Vital Signs Temperature 98.8 F 01/02/23 05:46 Pulse Rate 86 01/02/23 07:50 Respiratory Rate 19 H 01/02/23 07:50 Blood Pressure 135/84 01/02/23 07:50 Pulse Oximetry 100 01/02/23 07:50 Oxygen Delivery Me thod Nasal Cannula 01/02/23 07:50 Oxygen Flow Rate 4 01/02/23 07:50 MDM - Nausea/Vomiting/Diarrhea Medical Decision Making Acute metabolic Bolick acidosis complicated by his end-stage renal disease. And is brought on by the fluid losses with diarrhea. Concern for C. difficile. C. difficile was done. Patient does have dialysis scheduled today but I do not think it be able to do it at the dialysis clinic because of his persistent recurrent diarrhea. His BUN is above his normal baseline his creatinine is elevated as well he does have some mild hyperkalemia at 6.2 was given calcium chloride here. His calcium at that time was 9.1. Discussed with hospitalist and with nephrology the C. difficile is pending Medical Records I reviewed the patient's medical records. Lab Data I reviewed the patient's lab results. 01/02/23 05:50 01/02/23 05:50 Laboratory Results WBC 5.4 10^3/uL (4.0-10.0) 01/02/23 05:50 RBC 2.84 10^6/uL (4.1-5.3) L 01/02/23 05:50 Hgb 7.7 g/dL (11.7-16.6) L 01/02/23 05:50 Hct 26.0 % (42.0-52.0) L 01/02/23 05:50 MCV 91.5 fl (80-94) 01/02/23 05:50 MCH 27.1 pg (28.0-34.0) L 01/02/23 05:50 MCHC 29.6 g/dL (30.0-36.0) L 01/02/23 05:50 RDW 18.1 % (12.1-15.1) H 01/02/23 05:50 Plt Count 150 10^3/cmm (130-400) 01/02/23 05:50 MPV 10.0 fL (7.4-10.4) 01/02/23 05:50 Neut % (Auto) 59.9 % 01/02/23 05:50 Lymph % (Auto) 15.6 % 01/02/23 05:50 Towner % (Auto) 12.1 % 01/02/23 05:50 Eos % (Auto) 11.6 % 01/02/23 05:50 Baso % (Auto) 0.6 % 01/02/23 05:50 Neut # (Auto) 3.26 10^3/uL (1.8-7.7) 01/02/23 05:50 Lymph # (Auto) 0.9 10^3/uL (0.8-4.8) 01/02/23 05:50 Towner # (Auto) 0.7 10^3/uL (0.2-0.9) 01/02/23 05:50 Eos # (Auto) 0.6 10^3/uL (0.0-0.8) 01/02/23 05:50 Baso # (Auto) 0.0 10^3/uL (0.0-0.1) 01/02/23 05:50 Nucleated RBC % (auto) 0 % 01/02/23 05:50 Nucleated RBCs # 0.0 /100WBC 01/02/23 05:50 PT 19.00 SECONDS (12.1-14.9) H 01/02/23 05:50 INR 1.54 (0.8-1.2) H 01/02/23 05:50 APTT 33.5 SECONDS (23.9-36.7) 01/02/23 05:50 Sodium 139 mmol/L (136-145) 01/02/23 05:50 Potassium 6.2 mmol/L (3.5-5.1) H 01/02/23 05:50 Chloride 92 mmol/L (98-107) L 01/02/23 05:50 Carbon Dioxide 24 mmol/L (22-29) 01/02/23 05:50 Anion Gap 29.2 (5-19) H 01/02/23 05:50 BUN 99 mg/dL (6-20) H* D 01/02/23 05:50 Creatinine 6.1 mg/dL (0.7-1.2) H* 01/02/23 05:50 GFR Calculation 9.7 mL/min (90-130) L 01/02/23 05:50 Glucose 89 mg/dL (65-115) 01/02/23 05:50 Calculated Osmolality 318 mOsm/kg (285-295) H 01/02/23 05:50 Calcium 9.1 mg/dL (8.5-10.5) 01/02/23 05:50 Total Bilirubin 0.4 mg/dL (0.15-1.2) 01/02/23 05:50 AST 15 U/L (0-40) 01/02/23 05:50 ALT 7 U/L (0-41) 01/02/23 05:50 Alkaline Phosphatase 111 U/L (40-130) 01/02/23 05:50 Total Protein 7.6 g/dL (6.6-8.7) 01/02/23 05:50 Albumin 3.4 g/dL (3.5-5.2) L 01/02/23 05:50 Globulin 4.2 g/dL (1.3-4.6) 01/02/23 05:50 Discharge Plan Discharge Patient Disposition: Admitted As Inpatient Admit Provider: Darren Vela Clinical Impression: Metabolic acidosis, History of left below knee amputation, Acute hyperkalemia, End-stage renal disease on hemodialysis, Diarrhea Condition: Stable Coding Level of Care Code ED [employer] Officer for Patricia Reid
[2023-01-02 06:13] LABS: INR 1.54 (0.8-1.2)
[2023-01-02 06:14] LABS: Partial Thromboplastin Time 33.5 SECONDS (23.9-36.7)
[2023-01-02 06:21] LABS: Alanine Aminotransferase 7 U/L (0-41); Albumin Level 3.4 g/dL (3.5-5.2); Alkaline Phosphatase 111 U/L (40-130); Anion Gap 29.2 (5-19); Aspartate Amino Transferase 15 U/L (0-40); Calcium 9.1 mg/dL (8.5-10.5); Carbon Dioxide 24 mmol/L (22-29); Chloride 92 mmol/L (98-107); Globulin 4.2 g/dL (1.3-4.6); Glomerular Filtration Rate 9.7 mL/min (90-130); Glucose 89 mg/dL (65-115); Osmolality Calculated 318 mOsm/kg (285-295); Potassium 6.2 mmol/L (3.5-5.1); Sodium 139 mmol/L (136-145); Total Bilirubin 0.4 mg/dL (0.15-1.2); Total Protein 7.6 g/dL (6.6-8.7)
[2023-01-02 06:24] LABS: Blood Urea Nitrogen 99 mg/dL (6-20); Creatinine Clr Calc Pharmacy 19.0574
--- NOTE | 2023-01-02 06:43 | PC.NURSE ---
Patient states he does not produce urine since he is on dialysis.
[2023-01-02] MEDS: calcium chloride 10% Syr 10 mL 1 GM IVP (07:43)
[2023-01-02 10:45] LABS: Hepatitis B Core AB, Total Non-Reactive (Nonreactive); Hepatitis B Surface AB 51.4 (11.5-1000); Hepatitis B Surface Antigen Non-Reactive (Nonreactive)
[2023-01-02 11:29] LABS: Glucose Point of Care 78 mg/dL (70-110)
--- NOTE | 2023-01-02 12:02 | P.HP_ITS ---
Providers/Chief Complaint Admitting Physician: Darren Vela MD Primary Care Provider: Sulma Wetzel MD Chief Complaint: DIARRHEA X 1 WEEK History of Present Illness Akil Velasco is a 52 year old male with end-stage renal disease on hemodialysis presenting to the emergency department feeling weak. He reports he has had loose stool, for the last week off and on. It was very bad last night and he thinks he went least 10 times. No blood in the stool. He has been on antibiotics, Keflex lately after an injury to his right lower extremity. He denies any fevers. He has been slightly nauseous but no vomiting. Reports he has been taking medication as prescribed. No chest pain or shortness of breath. Reports he has an appointment for paracentesis tomorrow. He has not been watching his fluids as he should on dialysis. Review of Systems General: Reports: 10 or more systems reviewed and unremarkable except in HPI and below Const: Reports: fatigue and malaise; Denies: fever(s) or chills Card: Denies: chest pain Resp: Denies: dyspnea GI: Reports: nausea and diarrhea; Denies: abdominal pain or vomiting Medications/Allergies Home Medications Medication Instructions Recorded Confirmed Last Taken Type Wheel Chair #1 ea 08/18/21 01/02/23 11/22/22 Rx ropinirole 0.25 mg tablet 0.25 mg PO BEDTIME PRN Restless 08/22/21 01/02/23 11/22/22 History Leg(S) sodium zirconium cyclosilicate 5 See Rx Instructions .Route .COMPLEX 08/22/21 01/02/23 11/22/22 History gram oral powder packet (Lokelma) cholecalciferol (vitamin D3) 25 25 mcg PO QAM 04/11/22 01/02/23 11/22/22 History mcg (1,000 unit) tablet (Vitamin D3) ondansetron HCl 4 mg tablet 4 mg PO Q4H PRN Nausea 04/11/22 01/02/23 11/22/22 History Compression Stockings #1 ea 04/12/22 01/02/23 11/22/22 Rx [place] boot modification #1 ea 07/17/22 01/02/23 11/22/22 Rx oxycodone 5 mg tablet 5 mg PO Q6H PRN Pain 08/16/22 01/02/2311/22/23 History sevelamer carbonate 800 mg tablet See Rx Instructions .Route .COMPLEX 09/18/22 01/02/23 11/22/22 History B-complex with vitamin C 1 cap PO DAILY 10/16/22 01/02/23 11/22/22 History Saccharomyces boulardii 250 mg 250 mg PO BID 10/16/22 01/02/23 11/22/22 History capsule albuterol sulfate 90 mcg/actuation 2 puff inhalation Q6H PRN 10/16/22 01/02/23 11/22/22 History aerosol inhaler Shortness Of Breath bisacodyl 10 mg rectal suppository 10 mg NM DAILY PRN Constipation 10/16/22 01/02/23 11/22/22 History (Dulcolax (bisacodyl)) brexpiprazole 0.25 mg tablet 0.25 mg PO DAILY 10/16/22 01/02/23 11/22/22 History diphenhydramine HCl 25 mg tablet 25 mg PO DAILY PRN itching 10/16/22 01/02/23 11/22/22 History (Benadryl Allergy) famotidine 10 mg tablet 10 mg PO DAILY 10/16/22 01/02/23 11/22/22 History folic acid 1 mg tablet 1 mg PO DAILY 10/16/22 01/02/23 11/22/22 History hydroxyzine HCl 25 mg tablet 25 mg PO Q6H PRN Anxiety 10/16/22 01/02/23 11/22/22 History oxymetazoline 0.05 % nasal mist 2 spray intranasal Q12H PRN 10/16/22 01/02/23 11/22/22 History (Afrin (oxymetazoline)) Allergy Symptoms pantoprazole 40 mg tablet,delayed 40 mg PO DAILY 10/16/22 01/02/23 11/22/22 History release polyethylene glycol 3350 17 17 g PO BID 10/16/22 01/02/23 11/22/22 History gram/dose oral powder (Miralax) prochlorperazine 25 mg rectal 25 mg NM BID PRN Nausea 10/16/22 01/02/23 11/22/22 History suppository sodium phosphates 19 gram-7 118 ml NM DAILY PRN Constipation 10/16/22 01/02/23 11/22/22 History gram/118 mL enema (Fleet Enema) venlafaxine 75 mg capsule,extended 75 mg PO DAILY 10/16/22 01/02/23 11/22/22 History release 24 hr (Effexor XR) collagenase clostridium histo. 250 1 applic topical DAILY 10/30/22 01/02/23 11/22/22 History unit/gram topical ointment (Santyl) Prevalon boot #1 ea 11/21/22 01/02/23 11/22/22 Rx amino acids-protein hydrolysate 17 30 ea PO BID 11/21/22 01/02/23 11/22/22 History gram-100 kcal/30 mL oral liquid (Pro-Stat AWC) atorvastatin 40 mg tablet 40 mg PO DAILY 11/21/22 01/02/23 11/22/22 History cilostazol 50 mg tablet 50 mg PO BID 11/21/22 01/02/23 11/22/22 History trazodone 100 mg tablet 100 mg PO BEDTIME 11/21/22 01/02/23 11/22/22 History diabetic shoes with 3 heat molded #1 ea 12/15/22 01/02/23 Unknown Rx insoles cephalexin 500 mg capsule 500 mg PO Q6H 7 days #28 caps 12/28/22 01/02/23 Unknown Rx gabapentin 300 mg capsule 300 mg PO TID 01/02/23 01/02/23 Unknown History Allergies Allergy/AdvReac Type Severity Reaction Status Date / Time linezolid [From Zyvox] Allergy tendonitis Verified 12/28/22 07:22 ciprofloxacin [From Cipro] AdvReac Severe Tendonitis Verified 12/28/22 07:22 PFSH Acute PFSH: Medical History (Updated 01/02/23 @ 12:13 by Darren eVla MD) Accelerated hypertension Acquired equinovarus deformity of left foot Anemia Anemia of chronic disease BMI 50.0-59.9, adult Cardiac arrest (~07/2020) when had covid Cellulitis Cellulitis CHF (congestive heart failure), NYHA class III Chronic osteomyelitis of right foot Chronic respiratory failure with hypoxia and hypercapnia Chronic ulcer of left foot with fat layer exposed Chronic venous insufficiency COPD (chronic obstructive pulmonary disease) Diabetes Diabetic foot ulcers 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, limited to breakdown of skin ESRD (end stage renal disease) on dialysis First degree heart block Foot osteomyelitis, left Foot osteomyelitis, right Fracture of fifth metatarsal bone of left foot Fracture of fourth metatarsal bone of left foot Fracture, thoracic vertebra T7-T8 Gas gangrene History of left below knee amputation History of renal cell carcinoma Hypertension Hypovolemic shock Lung nodule Morbid obesity with BMI of 40.0-44.9, adult Neuropathy Non-healing ulcer of right foot with fat layer exposed Non-pressure chronic ulcer of other part of right foot with necrosis of muscle Obesity hypoventilation syndrome Obstructive sleep apnea non compliant with home bipap/cpap Osteomyelitis Osteomyelitis Pneumonia due to 2019-nCoV (~07/2020) Pre-ulcerative calluses PVD (peripheral vascular disease) Renal cell carcinoma History bilateral renal cell carcinoma 2007 then recurrence on the contralateral side 2011. No recurrence for long-term follow-up with some suspicion on CT scan April 2020. Restrictive lung disease Type 2 diabetes mellitus Type 2 diabetes mellitus with diabetic polyneuropathy 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 Ulcer of sacral region, stage 1 Urinary retention Vitamin D deficiency Xerosis of skin Surgical History H/O partial nephrectomy bilateral H/O wisdom tooth extraction History of cataract surgery Hx of lymph node excision Status post below-knee amputation of left lower extremity Family History Father , at age 65 Diabetes Cancer Metastatic prostate cancer to liver Mother , at age 72 Diabetes Grandfather Diabetes Cancer Other Anemia Hyperlipidemia Social History Smoking and tobacco status: never smoked Second hand smoke exposure: Yes Smoking risk assessment/counseling performed?: Yes Alcohol intake: current Alcohol intake frequency: holidays/special occasions only Substance/Drug Use: never Lives independently: Yes Household members: spouse Housing: House Marital status: service: No Current occupational status: retired Pets and animals: Yes Do you think of yourself as: Straight/Heterosexual Current gender identity: Male Vitals/I&O/Wt Last Vital Signs Temp 97.7 F 01/02/23 11:28 Pulse 85 01/02/23 11:28 Resp 16 01/02/23 11:28 BP 123/78 01/02/23 11:28 Pulse Ox 100 01/02/23 10:09 O2 Del Method Nasal Cannula 01/02/23 07:50 O2 Flow Rate 4 01/02/23 07:50 Weight last 48 hrs Weight 117.934 kg Physical Exam 2 Narrative: General exam is white male, no distress, sleeping when I enter the room. Denies any significant pain currently. HEENT: Atraumatic normocephalic. Pupils equally round. Oropharynx clear. Neck is supple no lymphadenopathy thyromegaly Cardiovascular regular rate and rhythm without murmur Lungs clear no wheezing or crackles. Diminished breath sounds are noted bilaterally. Abdomen is distended. Fluid wave is noted. Umbilical hernia is noted. No evidence of incarceration. Able to be reduced. Extremities. Left with below the knee amputation. Right toe with edema, at least 1+ with an abrasion to the mid montero. Some chronic induration but no evidence of active infection. Skin see findings above Neuro no obvious focal deficits Data 01/02/23 05:50 01/02/23 05:50 Other Labs: INR 1.54 Calcium 9.1 LFTs are normal C. difficile toxin is checked and negative. Micro: Microbiology 01/02/23 07:46 C.difficile Toxin B Gene (PCR) - Final Stool Routine Collection A&P Assessment and plan (1) Acute hyperkalemia: Secondary metabolic acidosis, chronic renal failure. Hemodialysis to be initiated today BMP tomorrow (2) Metabolic acidosis: Hemodialysis today Exacerbated by diarrhea Close follow-up of laboratory tomorrow No evidence of DKA (3) Diarrhea: Patient reports diarrhea Stool culture C. difficile is negative Monitor overnight May be related to ascites (4) End-stage renal disease on hemodialysis: Initiation of dialysis. Nephrology consultation (5) Type 2 diabetes mellitus: Consistent carb diet He is not currently on any insulin products, and his blood sugar is normal (6) Anemia: Secondary to his renal disease, and chronic health issues Monitor hemoglobin with CBC tomorrow No need for transfusion today (7) Ascites: He is scheduled for paracentesis tomorrow. Will notify radiology Also has significant evidence of anasarca. Plan Recent prescription of Keflex, for right lower extremity. Hold this currently secondary to diarrhea. No evidence of active infection. Continue to monitor Multiple other medical problems as outlined in his past medical history Full code Heparin subcu for DVT prophylaxis Attestations Medical Necessity Statement*: Will likely require greater than 2 midnight stay for evaluation and treatment of anasarca, with marked fluid overload including ascites with need for dialysis today. Diagnoses Acute hyperkalemia E87.5 Metabolic acidosis E87.20 Diarrhea R19.7 End-stage renal disease on hemodialysis N18.6; Z99.2 Type 2 diabetes mellitus E11.9 Anemia D64.9 Ascites R18.8 Time Spent (min) 51
--- NOTE | 2023-01-02 14:00 | P.CONIM_ITS ---
Providers/Reason For Consult Consulting Physician/Specialty*: [facility]/Nephrology Reason for Consult*: ESRD Attending Physician: Darren Vela MD Primary Care Provider: Sulma Wetzel MD History of Present Illness History of Present Illness Akil Velasco is a 52 year old male with past medical history of end-stage renal disease on dialysis per TTS schedule presented to the emergency department complaining of diarrhea for the last 1 week.. In the ER vital signs are stable lab data significant for potassium of 6.2 BUN of 99 and creatinine of 6.1. Patient is admitted for further management. Medications/Allergies Home Medications Medication Instructions Recorded Confirmed Last Taken Type Wheel Chair #1 ea 08/18/21 01/02/23 11/22/22 Rx ropinirole 0.25 mg tablet 0.25 mg PO BEDTIME PRN Restless 08/22/21 01/02/23 11/22/22 History Leg(S) sodium zirconium cyclosilicate 5 See Rx Instructions .Route .COMPLEX 08/22/21 01/02/23 11/22/22 History gram oral powder packet (Lokelma) cholecalciferol (vitamin D3) 25 25 mcg PO QAM 04/11/22 01/02/23 11/22/22 History mcg (1,000 unit) tablet (Vitamin D3) ondansetron HCl 4 mg tablet 4 mg PO Q4H PRN Nausea 04/11/22 01/02/23 11/22/22 History Compression Stockings #1 ea 04/12/22 01/02/23 11/22/22 Rx [place] boot modification #1 ea 07/17/22 01/02/23 11/22/22 Rx oxycodone 5 mg tablet 5 mg PO Q6H PRN Pain 08/16/22 01/02/23 11/22/22 History sevelamer carbonate 800 mg tablet See Rx Instructions .Route .COMPLEX 09/18/22 01/02/23 11/22/22 History B-complex with vitamin C 1 cap PO DAILY 10/16/22 01/02/23 11/22/22 History Saccharomyces boulardii 250 mg 250 mg PO BID 10/16/22 01/02/23 11/22/22 History capsule albuterol sulfate 90 mcg/actuation 2 puff inhalation Q6H PRN 10/16/22 01/02/23 11/22/22 History aerosol inhaler Shortness Of Breath bisacodyl 10 mg rectal suppository 10 mg NC DAILY PRN Constipation 10/16/22 01/02/23 11/22/22 History (Dulcolax (bisacodyl)) brexpiprazole 0.25 mg tablet 0.25 mg PO DAILY 10/16/22 01/02/23 11/22/22 History diphenhydramine HCl 25 mg tablet 25 mg PO DAILY PRN itching 10/16/22 01/02/23 11/22/22 History (Benadryl Allergy) famotidine 10 mg tablet 10 mg PO DAILY 10/16/22 01/02/23 11/22/22 History folic acid 1 mg tablet 1 mg PO DAILY 10/16/22 01/02/23 11/22/22 History hydroxyzine HCl 25 mg tablet 25 mg PO Q6H PRN Anxiety 10/16/22 01/02/23 11/22/22 History oxymetazoline 0.05 % nasal mist 2 spray intranasal Q12H PRN 10/16/22 01/02/23 11/22/22 History (Afrin (oxymetazoline)) Allergy Symptoms pantoprazole 40 mg tablet,delayed 40 mg PO DAILY 10/16/22 01/02/23 11/22/22 History release polyethylene glycol 3350 17 17 g PO BID 10/16/22 01/02/23 11/22/22 History gram/dose oral powder (Miralax) prochlorperazine 25 mg rectal 25 mg NC BID PRN Nausea 10/16/22 01/02/23 11/22/22 History suppository sodium phosphates 19 gram-7 118 ml NC DAILY PRN Constipation 10/16/22 01/02/23 11/22/22 History gram/118 mL enema (Fleet Enema) venlafaxine 75 mg capsule,extended 75 mg PO DAILY 10/16/22 01/02/23 11/22/22 History release 24 hr (Effexor XR) collagenase clostridium histo. 250 1 applic topical DAILY 10/30/22 01/02/23 11/22/22 History unit/gram topical ointment (Santyl) Prevalon boot #1 ea 11/21/22 01/02/23 11/22/22 Rx amino acids-protein hydrolysate 17 30 ea PO BID 11/21/22 01/02/23 11/22/22 History gram-100 kcal/30 mL oral liquid (Pro-Stat AWC) atorvastatin 40 mg tablet 40 mg PO DAILY 11/21/22 01/02/23 11/22/22 History cilostazol 50 mg tablet 50 mg PO BID 11/21/22 01/02/23 11/22/22 History trazodone 100 mg tablet 100 mg PO BEDTIME 11/21/22 01/02/23 11/22/22 History diabetic shoes with 3 heat molded #1 ea 12/15/22 01/02/23 Unknown Rx insoles cephalexin 500 mg capsule 500 mg PO Q6H 7 days #28 caps 12/28/22 01/02/23 Unknown Rx gabapentin 300 mg capsule 300 mg PO TID 01/02/23 01/02/23 Unknown History Allergies Allergy/AdvReac Type Severity Reaction Status Date / Time linezolid [From Zyvox] Allergy tendonitis Verified 12/28/22 07:22 ciprofloxacin [From Cipro] AdvReac Severe Tendonitis Verified 12/28/22 07:22 PFSH Acute PFSH: Medical History (Updated 01/02/23 @ 12:13 by Darren Vela MD) Accelerated hypertension Acquired equinovarus deformity of left foot Anemia Anemia of chronic disease BMI 50.0-59.9, adult Cardiac arrest (~07/2020) when had covid Cellulitis Cellulitis CHF (congestive heart failure), NYHA class III Chronic osteomyelitis of right foot Chronic respiratory failure with hypoxia and hypercapnia Chronic ulcer of left foot with fat layer exposed Chronic venous insufficiency COPD (chronic obstructive pulmonary disease) Diabetes Diabetic foot ulcers 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, limited to breakdown of skin ESRD (end stage renal disease) on dialysis First degree heart block Foot osteomyelitis, left Foot osteomyelitis, right Fracture of fifth metatarsal bone of left foot Fracture of fourth metatarsal bone of left foot Fracture, thoracic vertebra T7-T8 Gas gangrene History of left below knee amputation History of renal cell carcinoma Hypertension Hypovolemic shock Lung nodule Morbid obesity with BMI of 40.0-44.9, adult Neuropathy Non-healing ulcer of right foot with fat layer exposed Non-pressure chronic ulcer of other part of right foot with necrosis of muscle Obesity hypoventilation syndrome Obstructive sleep apnea non compliant with home bipap/cpap Osteomyelitis Osteomyelitis Pneumonia due to 2019-nCoV (~07/2020) Pre-ulcerative calluses PVD (peripheral vascular disease) Renal cell carcinoma History bilateral renal cell carcinoma 2007 then recurrence on the contralateral side 2011. No recurrence for long-term follow-up with some suspicion on CT scan April 2020. Restrictive lung disease Type 2 diabetes mellitus Type 2 diabetes mellitus with diabetic polyneuropathy 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 Ulcer of sacral region, stage 1 Urinary retention Vitamin D deficiency Xerosis of skin Surgical History H/O partial nephrectomy bilateral H/O wisdom tooth extraction History of cataract surgery Hx of lymph node excision Status post below-knee amputation of left lower extremity Family History Father , at age 65 Diabetes Cancer Metastatic prostate cancer to liver Mother , at age 72 Diabetes Grandfather Diabetes Cancer Other Anemia Hyperlipidemia Social History Smoking and tobacco status: never smoked Second hand smoke exposure: Yes Smoking risk assessment/counseling performed?: Yes Alcohol intake: current Alcohol intake frequency: holidays/special occasions only Substance/Drug Use: never Lives independently: Yes Household members: spouse Housing: House Marital status: service: No Current occupational status: retired Pets and animals: Yes Do you think of yourself as: Straight/Heterosexual Current gender identity: Male Vitals/I&O/Wt Last Vital Signs Temp 97.7 F 01/02/23 12:18 Pulse 79 01/02/23 12:18 Resp 16 01/02/23 12:18 BP 106/56 01/02/23 12:18 Pulse Ox 100 01/02/23 10:09 O2 Del Method Nasal Cannula 01/02/23 07:50 O2 Flow Rate 4 01/02/23 07:50 Weight last 48 hrs Weight 117.934 kg Physical Exam Narrative: Patient is awake alert, no acute distress, getting dialysis HEENT S1-S2 regular rate and rhythm per report No edema Data 01/02/23 05:50 01/02/23 05:50 Micro: Microbiology 01/02/23 07:46 C.difficile Toxin B Gene (PCR) - Final Stool Routine Collection A&P Assessment and plan (1) End-stage renal disease on hemodialysis: Plan 1. End-stage renal disease: On HD per TTS schedule, now presented with hype rkalemia, plan for dialysis today, minimal UF due to ongoing diarrhea. 2. Hyperkalemia: HD as above and low potassium diet 3. Diarrhea: C. difficile negative, 4. Anemia: Hemoglobin 7.7, will order a dose of ALBERTO, transfuse if hemoglobin less than 7 5. Ascites: Plan for paracentesis tomorrow Patient evaluated using audiovisual cart. Time spent 45 minutes Consult Attestations Medical Necessity Statement: per medicine Coding Level of Care Code Acute Code for Chg Fwd Diagnoses End-stage renal disease on hemodialysis N18.6; Z99.2
[2023-01-02 16:50] LABS: Glucose Point of Care 120 mg/dL (70-110)
[2023-01-02] MEDS: heparin 5,000 unit/mL INJ 1 mL 5000 UNIT SUBCUT (18:13)
[2023-01-02] MEDS: trazodone 100 mg Tablet PO (20:08)
[2023-01-02] MEDS: gabapentin 300 mg Capsule PO (20:08)
[2023-01-02 20:30] LABS: Glucose Point of Care 144 mg/dL (70-110)
[2023-01-03] VITALS (11 sets, daily range): BP systolic 135–164; BP diastolic 67–92; PULSE 63–89; RESP 16–18; TEMP 36.4–36.7; O2SAT 91–100
[2023-01-03] MEDS: oxyCODONE 5 mg IR Tab/Cap PO ×2 (01:49→09:39)
[2023-01-03 04:32] LABS: Basophils % 0.7 %; Eosinophils # 0.8 10^3/uL (0.0-0.8); Eosinophils % 16.3 %; Hematocrit 27.6 % (42.0-52.0); Hemoglobin 8.3 g/dL (11.7-16.6); Lymphocytes # 0.8 10^3/uL (0.8-4.8); Lymphocytes % 18.1 %; Mean Corpuscular HGB Conc 30.1 g/dL (30.0-36.0); Mean Corpuscular Hemoglobin 27.5 pg (28.0-34.0); Mean Corpuscular Volume 91.4 fl (80-94); Mean Platelet Volume 10.3 fL (7.4-10.4); Monocytes # 0.6 10^3/uL (0.2-0.9); Neutrophils # 2.41 10^3/uL (1.8-7.7); Neutrophils % 52.5 %; Nucleated Red Blood Cells % 0 %; Platelet Count 162 10^3/cmm (130-400); Red Blood Count 3.02 10^6/uL (4.1-5.3); Red Cell Distribution Width 18.3 % (12.1-15.1); White Blood Count 4.6 10^3/uL (4.0-10.0)
[2023-01-03 04:49] LABS: Alanine Aminotransferase 10 U/L (0-41); Albumin Level 3.3 g/dL (3.5-5.2); Alkaline Phosphatase 115 U/L (40-130); Aspartate Amino Transferase 17 U/L (0-40); Blood Urea Nitrogen 67 mg/dL (6-20); Carbon Dioxide 25 mmol/L (22-29); Chloride 96 mmol/L (98-107); Globulin 4.5 g/dL (1.3-4.6); Glomerular Filtration Rate 13.2 mL/min (90-130); Glucose 107 mg/dL (65-115); Magnesium 1.9 mg/dL (1.7-2.3); Osmolality Calculated 306 mOsm/kg (285-295); Phosphorus 6.9 mg/dL (2.5-4.5); Sodium 138 mmol/L (136-145); Total Bilirubin 0.5 mg/dL (0.15-1.2); Total Protein 7.8 g/dL (6.6-8.7)
[2023-01-03] MEDS: heparin 5,000 unit/mL INJ 1 mL 5000 UNIT SUBCUT (06:36)
--- NOTE | 2023-01-03 07:00 | US_ITS ---
WS: [id number] ULTRASOUND-GUIDED THERAPEUTIC PARACENTESIS Procedure, risks, and complications have been explained to the patient. Consent is obtained. Utilizing aseptic technique and 1% buffered lidocaine, a small dermatome was made through which a 5 F rench Yueh catheter was inserted. Approximately 4000 ml of clear peritoneal fluid was obtained witho ut difficulty. No complications encountered. US/US paracentesis [id number] IMPRESSION: Uncomplicated paracentesis yielding 4000 ml of peritoneal fluid. Recommend patient be evaluated for possible peritoneal permanent drainage parker ter. The patient's abdominal wall is very thickened and is becoming difficult t o advance the drainage catheter.
[2023-01-03] MEDS: venlafaxine ER (24HR) 75 mg Capsule PO (09:37)
[2023-01-03] MEDS: sevelamer 800 mg Tablet PO ×2 (09:37→12:22)
[2023-01-03] MEDS: gabapentin 300 mg Capsule PO (09:37)
[2023-01-03] MEDS: pantoprazole DR 40 mg Tablet PO (09:37)
[2023-01-03] MEDS: atorvastatin 40 mg Tablet PO (09:37)
[2023-01-03] MEDS: cilostazol 100 mg Tablet 50 MG PO (09:37)
--- NOTE | 2023-01-03 09:49 | PM.PN ---
Subjective Subjective: no new complaints Medications: Reviewed: Yes Vitals/I&O/Wt Last Vital Signs Temp 97.6 F 01/03/23 08:00 Pulse 89 01/03/23 08:07 Resp 16 01/03/23 09:39 BP 151/77 01/03/23 08:00 Pulse Ox 92 01/03/23 08:07 O2 Del Method Nasal Cannula 01/03/23 08:07 O2 Flow Rate 3 01/03/23 08:07 FiO2 28 01/03/23 02:55 01/02/23 01/03/23 01/03/23 22:59 06:59 14:59 Intake Total 1260 / 1260 480 / 1740 250 / 250 Output Total 2300 / 2300 Balance -1040 / -1040 480 / -560 250 / 250 Weight last 48 hrs Weight 122.8 kg Weight 117.934 kg Weight 117.934 kg Data 01/03/23 03:34 01/03/23 03:34 Micro: Microbiology 01/02/23 07:46 C.difficile Toxin B Gene (PCR) - Final Stool Routine Collection Coding Level of Care Code Acute Code for Chg Fwd Diagnoses
--- NOTE | 2023-01-03 12:27 | P.DS_ITS ---
Discharge Providers Date of Admission: 01/02/23 09:26 Date of Discharge: January 03, 2023 Attending Provider at Admission: Darren Vela MD Attending Provider at Discharge: Darren Vela MD Primary Care Provider: Sulma Wetzel MD Diagnoses at Discharge Discharge Diagnosis (1) End-stage renal disease on hemodialysis: Status: Acute Reason for Visit Reason for Visit: DIARRHEA X 1 WEEK Hospital Course Hospital Course Akil presented to the emergency department with complaints of weakness, loose stool, and had not had dialysis that day. He had significant ascites as well, and was due for paracentesis the following day. He was admitted to the hospital, and nephrology consulted for his hyperkalemia as well as need for dialysis. Dialysis occurred without event, and potassium level was within normal limits the following day. Paracentesis was also performed the following day, on January 03, with removal of 4 L of fluid. There was some difficulty secondary to thick abdominal wall. I discussed with the patient limiting fluid intake, following recommendations from nephrology regarding dry weight. He was eager to go home, his C. difficile test on stool was negative, and he had no further diarrhea. He was therefore discharged home. He was able to ask questions and agreed with the plan. He reported he would follow-up with dialysis, as well as outpatient paracentesis. I discussed with him the potential drainage catheter for his ascites, but I do believe if he would limit his fluid intake his abdominal wall edema would improve significantly and probably he would have less accumulation of ascites. He will consider this. Physical Exam Narrative: General exam no distress Neck supple Cardiovascular regular rate rhythm Lungs clear Abdomen is soft obese, nontender Extremities no cyanosis clubbing, amputation of the left noted and 1+ edema noted on the right. No evidence of cellulitis. Discharge Data Studies Completed and Pending Pending at discharge Category Date Time Status Stool Culture, Bacterial [Enteric Bacterial Panel by Lab 01/02/23 12:17 Uncollected PCR] Routine [place] paracentesis abd w [id number] Routine Ultrasound 01/03/23 07:00 Taken Laboratory Results WBC 4.6 10^3/uL (4.0-10.0) 01/03/23 03:34 RBC 3.02 10^6/uL (4.1-5.3) L 01/03/23 03:34 Hgb 8.3 g/dL (11.7-16.6) L 01/03/23 03:34 Hct 27.6 % (42.0-52.0) L 01/03/23 03:34 MCV 91.4 fl (80-94) 01/03/23 03:34 MCH 27.5 pg (28.0-34.0) L 01/03/23 03:34 MCHC 30.1 g/dL (30.0-36.0) 01/03/23 03:34 RDW 18.3 % (12.1-15.1) H 01/03/23 03:34 Plt Count 162 10^3/cmm (130-400) 01/03/23 03:34 MPV 10.3 fL (7.4-10.4) 01/03/23 03:34 Neut % (Auto) 52.5 % 01/03/23 03:34 Lymph % (Auto) 18.1 % 01/03/23 03:34 [place] % (Auto) 12.0 % 01/03/23 03:34 Eos % (Auto) 16.3 % 01/03/23 03:34 Baso % (Auto) 0.7 % 01/03/23 03:34 Neut # (Auto) 2.41 10^3/uL (1.8-7.7) 01/03/23 03:34 Lymph # (Auto) 0.8 10^3/uL (0.8-4.8) 01/03/23 03:34 [place] # (Auto) 0.6 10^3/uL (0.2-0.9) 01/03/23 03:34 Eos # (Auto) 0.8 10^3/uL (0.0-0.8) 01/03/23 03:34 Baso # (Auto) 0.0 10^3/uL (0.0-0.1) 01/03/23 03:34 Nucleated RBC % (auto) 0 % 01/03/23 03:34 Nucleated RBCs # 0.0 /100WBC 01/03/23 03:34 PT 19.00 SECONDS (12.1-14.9) H 01/02/23 05:50 INR 1.54 (0.8-1.2) H 01/02/23 05:50 APTT 33.5 SECONDS (23.9-36.7) 01/02/23 05:50 Sodium 138 mmol/L (136-145) 01/03/23 03:34 Potassium 5.0 mmol/L (3.5-5.1) 01/03/23 03:34 Chloride 96 mmol/L (98-107) L 01/03/23 03:34 Carbon Dioxide 25 mmol/L (22-29) 01/03/23 03:34 Anion Gap 22.0 (5-19) H 01/03/23 03:34 BUN 67 mg/dL (6-20) H 01/03/23 03:34 Creatinine 4.7 mg/dL (0.7-1.2) H 01/03/23 03:34 GFR Calculation 13.2 mL/min (90-130) L 01/03/23 03:34 Glucose 107 mg/dL (65-115) 01/03/23 03:34 POC Glucose 144 mg/dL (70-110) H 01/02/23 20:28 Calculated Osmolality 306 mOsm/kg (285-295) H 01/03/23 03:34 Calcium 9.0 mg/dL (8.5-10.5) 01/03/23 03:34 Phosphorus 6.9 mg/dL (2.5-4.5) H 01/03/23 03:34 Magnesium 1.9 mg/dL (1.7-2.3) 01/03/23 03:34 Total Bilirubin 0.5 mg/dL (0.15-1.2) 01/03/23 03:34 AST 17 U/L (0-40) 01/03/23 03:34 ALT 10 U/L (0-41) 01/03/23 03:34 Alkaline Phosphatase 115 U/L (40-130) 01/03/23 03:34 Total Protein 7.8 g/dL (6.6-8.7) 01/03/23 03:34 Albumin 3.3 g/dL (3.5-5.2) L 01/03/23 03:34 Globulin 4.5 g/dL (1.3-4.6) 01/03/23 03:34 Hep Bs Antigen Non-reactive (Nonreactive) 01/02/23 05:50 Hep Bs Antibody 51.4 (11.5-1000) 01/02/23 05:50 Hep B Core Total Ab Non-reactive (Nonreactive) 01/02/23 05:50 Vitals Last Vital Signs Temp 97.6 F 01/03/23 08:00 Pulse 83 01/03/23 12:00 Resp 18 01/03/23 12:00 BP 153/67 01/03/23 12:00 Pulse Ox 92 01/03/23 12:00 O2 Del Method Nasal Cannula 01/03/23 08:07 O2 Flow Rate 3 01/03/23 08:07 FiO2 28 01/03/23 02:55 Discharge Plan Discharge Patient Disposition: Home Condition: Stable Prescriptions: Continued (DME) Wheel Chair See Rx Instructions .Route .MEDSUPPLY Qty: 1 0RF Rx Instructions: As directed HOME (DME) Compression Stockings See Rx Instructions .Route .MEDSUPPLY Qty: 1 0RF Rx Instructions: As directed (DME) [place] boot modification See Rx Instructions .Route .MEDSUPPLY Qty: 1 0RF Rx Instructions: Straps are failing (DME) diabetic shoes with 3 heat molded insoles See Rx Instructions .Route .MEDSUPPLY Qty: 1 0RF Rx Instructions: As directed to HOME (DME) Prevalon boot See Rx Instructions .Route .MEDSUPPLY Qty: 1 0RF Rx Instructions: As directed ropinirole 0.25 mg tablet 0.25 mg PO BEDTIME PRN (Reason: Restless Leg(S)) Lokelma 5 gram powder in packet See Rx Instructions .ROUTE .COMPLEX Rx Instructions: 1 packet po daily on , , Sun, Sun - mix with 45 mL of water, drink immediately give other medications 2 hrs before or after this medication oxycodone 5 mg Tablet 5 mg PO Q6H PRN (Reason: Pain) atorvastatin 40 mg Tablet 40 mg PO DAILY cilostazol 50 mg Tablet 50 mg PO BID trazodone 100 mg Tablet 100 mg PO BEDTIME Pro-Stat AWC 17-100 gram-kcal/30 mL Liquid 30 ea PO BID ondansetron HCl 4 mg tablet 4 mg PO Q4H PRN (Reason: Nausea) cholecalciferol (vitamin D3) [Vitamin D3] 25 mcg (1,000 unit) Tablet 25 mcg PO QAM sevelamer carbonate 800 mg tablet See Rx Instructions .ROUTE .COMPLEX Rx Instructions: 5 tabs po tid with meals and 4 tabs po bid with snacks venlafaxine [Effexor XR] 75 mg Capsule,Extended Release 24hr 75 mg PO DAILY famotidine 10 mg Tablet 10 mg PO DAILY bisacodyl [Dulcolax (bisacodyl)] 10 mg Suppository 10 mg [place] DAILY PRN (Reason: Constipation) pantoprazole 40 mg Tablet,Delayed Release (Dr/Ec) 40 mg PO DAILY Fleet Enema 19-7 gram/118 mL Enema 118 ml [place] DAILY PRN (Reason: Constipation) folic acid 1 mg Tablet 1 mg PO DAILY hydroxyzine HCl 25 mg Tablet 25 mg PO Q6H PRN (Reason: Anxiety) polyethylene glycol 3350 [Miralax] 17 gram/dose Powder 17 g PO BID albuterol sulfate 90 mcg/actuation Hfa Aerosol Inhaler 2 puff INHALATION Q6H PRN (Reason: Shortness Of Breath) B-complex with vitamin C Capsule 1 cap PO DAILY brexpiprazole 0.25 mg Tablet 0.25 mg PO DAILY diphenhydramine HCl [Benadryl Allergy] 25 mg tablet 25 mg PO DAILY PRN (Reason: itching) cephalexin 500 mg capsule 500 mg PO Q6H 7 Days Qty: 28 0RF gabapentin 300 mg capsule 300 mg PO TID Discharge Orders: Discharge Order (Routine); Ordered 01/03/23 Ordered By: Darren Vela Referrals: Sulma Wetzel MD [Primary Care Provider] - 01/08/23 11:15 am Discharge Diet: Usual diet Discharge Activity: Increase activity as tolerated Patient Instructions: Ascites (GEN), Opioid Safety Activity Restrictions/Additional Instructions: Please reduce fluid intake per nephrology, hemodialysis center. Keep regular follow-up with nephrology on dialysis Sunday Continue to return for paracentesis per radiology Follow-up with your primary care provider 4 to 7 days Follow-up sooner for any concerns. Discharge Attestations Time Spent in Discharge Care*: greater than 30 min Status at Discharge: Cognitive status at discharge: cognitively intact , Behavioral status at discharge: cooperative , Quality Metrics Clinical Quality Measures [ No reported AMI, CVA or VTE this stay] Coding Level of Care Code 62436 Total time (in minutes) for Discharge: 35 Diagnoses End-stage renal disease on hemodialysis N18.6; Z99.2
--- NOTE | 2023-01-03 14:11 | PC.NURSE ---
Discharge Note Patient discharged to home via private vehicle accompanied by family member. 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 Mobile pharmacy medications and/or prescriptions provided. Belongings/home medications returned.
== END 2023-01-03 14:11 | disposition home health service (06) | DRG 640 ==
LOC: ER 07:28 → ER IP 09:46 → MEDSURG 12:21
PROVIDERS: Hospitalist; Admitting Provider Internal Medicine; Emergency Provider Family Medicine; PCP Internal Medicine; Visit Provider Internal Medicine
DX: E87.70 Fluid overload, unspecified (principal); N18.6 End stage renal disease; I13.2 Hypertensive heart and chronic kidney disease with heart failure and with stage 5 chronic kidney disease, or end stage renal disease; R18.8 Other ascites; J96.12 Chronic respiratory failure with hypercapnia; J96.11 Chronic respiratory failure with hypoxia; E66.2 Morbid (severe) obesity with alveolar hypoventilation; E11.22 Type 2 diabetes mellitus with diabetic chronic kidney disease; I50.9 Heart failure, unspecified; Z99.2 Dependence on renal dialysis; E87.5 Hyperkalemia; R19.7 Diarrhea, unspecified; Z79.891 Long term (current) use of opiate analgesic; Z79.51 Long term (current) use of inhaled steroids; D63.1 Anemia in chronic kidney disease; Z86.16 Personal history of COVID-19; Z86.74 Personal history of sudden cardiac arrest; J44.9 Chronic obstructive pulmonary disease, unspecified; E11.40 Type 2 diabetes mellitus with diabetic neuropathy, unspecified; E11.51 Type 2 diabetes mellitus with diabetic peripheral angiopathy without gangrene; Z87.01 Personal history of pneumonia (recurrent); E87.20 Acidosis, unspecified; Z89.512 Acquired absence of left leg below knee; Z90.5 Acquired absence of kidney; Z85.528 Personal history of other malignant neoplasm of kidney
CPT/HCPCS: 12345; 36415; 36416; 49083; 80053; 82962; 83735; 84100; 85025; 85610; 85730; 86705; 86706; 87340; 87493; 90935; 94660; 96372; 96374; 96375; 99285; J1644; J3490

== ENCOUNTER 2023-01-16 01:27 | Emergency (ER) | payer MEDICARE, MEDICAID, SELFPAY ==
[2023-01-16] VITALS (9 sets, daily range): BP systolic 110–146; BP diastolic 66–87; PULSE 90–102; RESP 16–22; TEMP 37.1; O2SAT 93–99; BMI 41.9
--- NOTE | 2023-01-16 01:28 | XRR_ITS ---
PROCEDURE INFORMATION: Exam: XR Chest Exam date and time: 01/16/2023 1:31 AM Age: 52 years old Clinical indication: Shortness of breath; Chest pressure; Patient HX: C/O chest pain with SOB. History of renal cancer. ; Additional info: Cp TECHNIQUE: Imaging protocol: Radiologic exam of the chest. Views: 1 view. Total images: 1317 COMPARISON: CR XR chest 1V portable [id number] 09/18/2022 4:07 PM FINDINGS: Lungs: Pulmonary vascular congestion. No acute focal pulmonary opacities are detected. Pleural spaces: Unremarkable. No pleural effusion. No pneumothorax. Heart/Mediastinum: Heart is enlarged but stable when compared to the prior exam. Bones/joints: Unremarkable. XR/XR chest 1V portable [id number] IMPRESSION: 1. Heart is enlarged but stable when compared to the prior exam. 2. Pulmonary vascular congestion. 3. No acute focal pulmonary opacities are detected.
--- NOTE | 2023-01-16 01:29 | ECG_ITS ---
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 Measurements Intervals [place] Rate: 91 P: 10 MN: 199 QRS: 75 QRSD: 109 T: -14 QT: 364 QTc: 448 Interpretive Statements SINUS RHYTHM LOW QRS VOLTAGE IN PRECORDIAL LEADS [QRS DEFLECTION < 1.0 mV IN CHEST LEADS] INCOMPLETE RIGHT BUNDLE BRANCH BLOCK ANTEROSEPTAL MYOCARDIAL INFARCTION , OF INDETERMINATE AGE Compared to ECG 03/16/2022 13:46:45 Low QRS voltage now present Incomplete right bundle-branch block now present Myocardial infarct finding now present Sinus tachycardia no longer present Atrial abnormality no longer present ST (T wave) deviation no longer present Electronically Signed On 01-16-2023 16:25:13 CDT by Rosie Ivey M.D. [id number] f
--- NOTE | 2023-01-16 01:36 | W.ED.SOB ---
HPI - SOB/Dyspnea General: Chief Complaint: Shortness of Breath/Dyspnea Stated Complaint: CP Time Seen by Provider: 01/16/23 01:28 Source: patient and EMS Mode of arrival: EMS Limitations: no limitations History of Present Illness: HPI Narrative: 52-year-old male has a history of end-stage renal disease he receives dialysis Sunday states he did go on Sunday scheduled for dialysis later this morning. He also has a history of ascites he is gets paracentesis every 2 weeks he is scheduled for Sunday. He states tonight roughly 2 to 3 hours ago he started having some chest pain along with dyspnea states he is having some abdominal pain from his distention. States his pain here is improved he rates it a 4 out of 10 denies any fever. y Associated symptoms: Reports abdominal pain and chest pain; Deny fever(s), nausea or vomiting Review of Systems Const: Denies: fever(s), chills or body aches Eyes: Denies: eye discomfort ENMT: Denies: throat pain or dental pain Card: Reports: chest pain Resp: Reports: dyspnea GI: Reports: abdominal pain; Denies: nausea, vomiting or diarrhea Musc: Denies: neck pain or back pain Skin/Breast: Denies: rash Neuro: Denies: headache(s) PFSH ED PFSH: Medical History Accelerated hypertension Acquired equinovarus deformity of left foot Anemia Anemia of chronic disease BMI 50.0-59.9, adult Cardiac arrest (~07/2020) when had covid Cellulitis Cellulitis CHF (congestive heart failure), NYHA class III Chronic osteomyelitis of right foot Chronic respiratory failure with hypoxia and hypercapnia Chronic ulcer of left foot with fat layer exposed Chronic venous insufficiency COPD (chronic obstructive pulmonary disease) Diabetes Diabetic foot ulcers 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, limited to breakdown of skin ESRD (end stage renal disease) on dialysis First degree heart block Foot osteomyelitis, left Foot osteomyelitis, right Fracture of fifth metatarsal bone of left foot Fracture of fourth metatarsal bone of left foot Fracture, thoracic vertebra T7-T8 Gas gangrene History of left below knee amputation History of renal cell carcinoma Hypertension Hypovolemic shock Lung nodule Morbid obesity with BMI of 40.0-44.9, adult Neuropathy Non-healing ulcer of right foot with fat layer exposed Non-pressure chronic ulcer of other part of right foot with necrosis of muscle Obesity hypoventilation syndrome Obstructive sleep apnea non compliant with home bipap/cpap Osteomyelitis Osteomyelitis Pneumonia due to 2019-nCoV (~07/2020) Pre-ulcerative calluses PVD (peripheral vascular disease) Renal cell carcinoma History bilateral renal cell carcinoma 2007 then recurrence on the contralateral side 2011. No recurrence for long-term follow-up with some suspicion on CT scan April 2020. Restrictive lung disease Type 2 diabetes mellitus Type 2 diabetes mellitus with diabetic polyneuropathy 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 Ulcer of sacral region, stage 1 Urinary retention Vitamin D deficiency Xerosis of skin Surgical History H/O partial nephrectomy bilateral H/O wisdom tooth extraction History of cataract surgery Hx of lymph node excision Status post below-knee amputation of left lower extremity Family History Father , at age 65 Diabetes Cancer Metastatic prostate cancer to liver Mother , at age 72 Diabetes Grandfather Diabetes Cancer Other Anemia Hyperlipidemia Social History Smoking and tobacco status: never smoked Second hand smoke exposure: Yes Smoking risk assessment/counseling performed?: Yes Alcohol intake: current Alcohol intake frequency: holidays/special occasions only Substance/Drug Use: never Lives independently: Yes Household members: spouse Housing: House Marital status: service: No Current occupational status: retired Pets and animals: Yes Do you think of yourself as: Straight/Heterosexual Current gender identity: Male Physical Exam Const: COMMON NORMALS: patient oriented x3 HENMT: COMMON NORMALS: normocephalic and atraumatic HEAD & SCALP: normocephalic and atraumatic Eye: COMMON NORMALS: Equal, round and reactive pupils present and EOMs intact bilaterally PUPIL: Yes Equal, round and reactive pupils present Neck/C-Spine: COMMON NORMALS: full ROM and supple Chest: COMMONS NORMALS: normal inspection of the chest and normal palpation of entire chest wall Resp: COMMON NORMALS: normal respiratory effort, No retractions, No use of accessory muscles and clear to auscultation bilaterally AUSCULTATION: clear to auscultation bilaterally Cardio: COMMON NORMALS: regular rate, regular rhythm and No murmurs present (Cardio) RATE: regular rate RHYTHM: regular rhythm GI: COMMON NORMALS: Soft to palpation, non-tender and no masses PALPATION: Yes Soft to palpation OTHER: abdomen is distended Extremity: COMMON NORMALS: normal to inspection and full ROM Neuro: COMMON NORMALS: patient oriented x3, moves all extremities and no focal motor deficits Psych: COMMON NORMALS: mental status grossly normal, Normal thought process present and cooperative THOUGHT PROCESS: Normal thought process present Skin: COMMON NORMALS: no rashes or lesions noted and no wounds GENERAL SKIN EXAM: no rashes or lesions noted Course Vital Signs: Vital signs: Vital Signs Temperature 98.8 F 01/16/23 01:32 Pulse Rate 93 01/16/23 04:00 Respiratory Rate 16 01/16/23 02:59 Blood Pressure 110/66 01/16/23 04:00 Pulse Oximetry 94 01/16/23 04:00 Oxygen Delivery Me thod Nasal Cannula 01/16/23 04:00 Oxygen Flow Rate 3 01/16/23 02:02 MDM - SOB/Dyspnea Medical Decision Making Patient presents here with chest pain his 2-hour troponin is unchanged chronically elevated due to his end-stage renal disease no signs of acute coronary syndrome he has been in no distress here he is pain-free currently. He is due for dialysis today he is to get dialysis today as scheduled he is to get his paracentesis tomorrow also scheduled he is stable for discharge. Medical Records I reviewed the patient's medical records. Lab Data I reviewed the patient's lab results. 01/16/23 01:39 01/16/23 01:39 Labs/Radiology: Laboratory Results WBC 6.2 10^3/uL (4.0-10.0) 01/16/23 01:39 RBC 2.79 10^6/uL (4.1-5.3) L 01/16/23 01:39 Hgb 7.4 g/dL (11.7-16.6) L 01/16/23 01:39 Hct 25.4 % (42.0-52.0) L 01/16/23 01:39 MCV 91.0 fl (80-94) 01/16/23 01:39 MCH 26.5 pg (28.0-34.0) L 01/16/23 01:39 MCHC 29.1 g/dL (30.0-36.0) L 01/16/23 01:39 RDW 17.4 % (12.1-15.1) H 01/16/23 01:39 Plt Count 121 10^3/cmm (130-400) L 01/16/23 01:39 MPV 8.6 fL (7.4-10.4) 01/16/23 01:39 Neut % (Auto) 60.4 % 01/16/23 01:39 Lymph % (Auto) 15.3 % 01/16/23 01:39 [place] % (Auto) 10.9 % 01/16/23 01:39 Eos % (Auto) 12.4 % 01/16/23 01:39 Baso % (Auto) 0.7 % 01/16/23 01:39 Neut # (Auto) 3.72 10^3/uL (1.8-7.7) 01/16/23 01:39 Lymph # (Auto) 0.9 10^3/uL (0.8-4.8) 01/16/23 01:39 [place] # (Auto) 0.7 10^3/uL (0.2-0.9) 01/16/23 01:39 Eos # (Auto) 0.8 10^3/uL (0.0-0.8) 01/16/23 01:39 Baso # (Auto) 0.0 10^3/uL (0.0-0.1) 01/16/23 01:39 Nucleated RBC % (auto) 0 % 01/16/23 01:39 Nucleated RBCs # 0.0 /100WBC 01/16/23 01:39 PT 19.20 SECONDS (12.1-14.9) H 01/16/23 01:39 INR 1.56 (0.8-1.2) H 01/16/23 01:39 Sodium 141 mmol/L (136-145) 01/16/23 01:39 Potassium 5.7 mmol/L (3.5-5.1) H 01/16/23 01:39 Chloride 93 mmol/L (98-107) L 01/16/23 01:39 Carbon Dioxide 26 mmol/L (22-29) 01/16/23 01:39 Anion Gap 27.7 (5-19) H 01/16/23 01:39 BUN 63 mg/dL (6-20) H 01/16/23 01:39 Creatinine 6.2 mg/dL (0.7-1.2) H* 01/16/23 01:39 GFR Calculation 9.6 mL/min (90-130) L 01/16/23 01:39 Glucose 103 mg/dL (65-115) 01/16/23 01:39 Calculated Osmolality 310 mOsm/kg (285-295) H 01/16/23 01:39 Calcium 8.7 mg/dL (8.5-10.5) 01/16/23 01:39 Total Bilirubin 0.4 mg/dL (0.15-1.2) 01/16/23 01:39 AST 11 U/L (0-40) 01/16/23 01:39 ALT 8 U/L (0-41) 01/16/23 01:39 Alkaline Phosphatase 98 U/L (40-130) 01/16/23 01:39 Troponin T Baseline 778 ng/L (0-15) H* 01/16/23 01:39 Troponin T 120 Minute 771.4 ng/L (0-15) H 01/16/23 03:39 Delta Troponin T -6.6 ABS# (0-10) L 01/16/23 03:39 NT-Pro-B Natriuret Pep 87757 pg/mL (0-125) H 01/16/23 01:39 Total Protein 7.3 g/dL (6.6-8.7) 01/16/23 01:39 Albumin 3.2 g/dL (3.5-5.2) L 01/16/23 01:39 Globulin 4.1 g/dL (1.3-4.6) 01/16/23 01:39 Lipase 21 U/L (13-60) 01/16/23 01:39 EKG Data EKG 1: I personally reviewed and interpreted this EKG as follows: EKG Interpretation Date: 01/16/23 EKG interpretation time: 01:35 Interpretation: nsr hr [address] elevation qrs 109 qtc 412 Discharge Plan Discharge Patient Disposition: Home Clinical Impression: End-stage renal disease on hemodialysis, Ascites, Chest pain Condition: Stable Prescriptions: No Action (DME) Wheel Chair See Rx Instructions .Route .MEDSUPPLY Qty: 1 0RF Rx Instructions: As directed HOME (DME) Compression Stockings See Rx Instructions .Route .MEDSUPPLY Qty: 1 0RF Rx Instructions: As directed (DME) [place] boot modification See Rx Instructions .Route .MEDSUPPLY Qty: 1 0RF Rx Instructions: Straps are failing (DME) diabetic shoes with 3 heat molded insoles See Rx Instructions .Route .MEDSUPPLY Qty: 1 0RF Rx Instructions: As directed to HOME (DME) Prevalon boot See Rx Instructions .Route .MEDSUPPLY Qty: 1 0RF Rx Instructions: As directed ropinirole 0.25 mg tablet 0.25 mg PO BEDTIME PRN (Reason: Restless Leg(S)) Lokelma 5 gram powder in packet See Rx Instructions .ROUTE .COMPLEX Rx Instructions: 1 packet po daily on , , Sun, Sun - mix with 45 mL of water, drink immediately give other medications 2 hrs before or after this medication oxycodone 5 mg Tablet 5 mg PO Q6H PRN (Reason: Pain) atorvastatin 40 mg Tablet 40 mg PO DAILY cilostazol 50 mg Tablet 50 mg PO BID trazodone 100 mg Tablet 100 mg PO BEDTIME Pro-Stat AWC 17-100 gram-kcal/30 mL Liquid 30 ea PO BID ondansetron HCl 4 mg tablet 4 mg PO Q4H PRN (Reason: Nausea) cholecalciferol (vitamin D3) [Vitamin D3] 25 mcg (1,000 unit) Tablet 25 mcg PO QAM sevelamer carbonate 800 mg tablet See Rx Instructions .ROUTE .COMPLEX Rx Instructions: 5 tabs po tid with meals and 4 tabs po bid with snacks venlafaxine [Effexor XR] 75 mg Capsule,Extended Release 24hr 75 mg PO DAILY famotidine 10 mg Tablet 10 mg PO DAILY bisacodyl [Dulcolax (bisacodyl)] 10 mg Suppository 10 mg [place] DAILY PRN (Reason: Constipation) pantoprazole 40 mg Tablet,Delayed Release (Dr/Ec) 40 mg PO DAILY Fleet Enema 19-7 gram/118 mL Enema 118 ml [place] DAILY PRN (Reason: Constipation) folic acid 1 mg Tablet 1 mg PO DAILY hydroxyzine HCl 25 mg Tablet 25 mg PO Q6H PRN (Reason: Anxiety) polyethylene glycol 3350 [Miralax] 17 gram/dose Powder 17 g PO BID albuterol sulfate 90 mcg/actuation Hfa Aerosol Inhaler 2 puff INHALATION Q6H PRN (Reason: Shortness Of Breath) B-complex with vitamin C Capsule 1 cap PO DAILY brexpiprazole 0.25 mg Tablet 0.25 mg PO DAILY diphenhydramine HCl [Benadryl Allergy] 25 mg tablet 25 mg PO DAILY PRN (Reason: itching) gabapentin 300 mg capsule 300 mg PO TID Discharge Orders: Discharge ED (Routine); Ordered 01/16/23 Ordered By: Dilip Banda Referrals: Salina Perez MD [Primary Care Provider] - 1-3 days Discharge Diet: Advance as tolerated Discharge Activity: Resume usual activity Patient Instructions: Chest Pain (ED), Ascites (ED) Coding Level of Care Code ED 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
[2023-01-16 01:45] LABS: Basophils % 0.7 %; Eosinophils # 0.8 10^3/uL (0.0-0.8); Eosinophils % 12.4 %; Hematocrit 25.4 % (42.0-52.0); Hemoglobin 7.4 g/dL (11.7-16.6); Lymphocytes # 0.9 10^3/uL (0.8-4.8); Lymphocytes % 15.3 %; Mean Corpuscular HGB Conc 29.1 g/dL (30.0-36.0); Mean Corpuscular Hemoglobin 26.5 pg (28.0-34.0); Mean Platelet Volume 8.6 fL (7.4-10.4); Monocytes # 0.7 10^3/uL (0.2-0.9); Monocytes % 10.9 %; Neutrophils # 3.72 10^3/uL (1.8-7.7); Neutrophils % 60.4 %; Nucleated Red Blood Cells % 0 %; Platelet Count 121 10^3/cmm (130-400); Red Blood Count 2.79 10^6/uL (4.1-5.3); Red Cell Distribution Width 17.4 % (12.1-15.1); White Blood Count 6.2 10^3/uL (4.0-10.0)
[2023-01-16] MEDS: ondansetron 2 mg/ML SDV 2 mL 4 MG IVP (01:52)
[2023-01-16] MEDS: morphine 4 mg/mL SDV 1 mL IVP (01:52)
[2023-01-16 01:59] LABS: INR 1.56 (0.8-1.2)
[2023-01-16] MEDS: albuterol 2.5 mg/3 mL Neb INHALATION (01:59)
[2023-01-16 02:08] LABS: Alanine Aminotransferase 8 U/L (0-41); Albumin Level 3.2 g/dL (3.5-5.2); Alkaline Phosphatase 98 U/L (40-130); Anion Gap 27.7 (5-19); Aspartate Amino Transferase 11 U/L (0-40); Blood Urea Nitrogen 63 mg/dL (6-20); Calcium 8.7 mg/dL (8.5-10.5); Carbon Dioxide 26 mmol/L (22-29); Chloride 93 mmol/L (98-107); Globulin 4.1 g/dL (1.3-4.6); Glomerular Filtration Rate 9.6 mL/min (90-130); Glucose 103 mg/dL (65-115); Lipase 21 U/L (13-60); Osmolality Calculated 310 mOsm/kg (285-295); Potassium 5.7 mmol/L (3.5-5.1); Sodium 141 mmol/L (136-145); Total Bilirubin 0.4 mg/dL (0.15-1.2); Total Protein 7.3 g/dL (6.6-8.7)
[2023-01-16 02:20] LABS: Troponin(5th) Baseline 778 ng/L (0-15)
[2023-01-16 02:38] LABS: NT Pro B Type Natriuretic Pept 49412 pg/mL (0-125)
--- NOTE | 2023-01-16 03:29 | ECG_ITS ---
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 Measurements Intervals [place] Rate: 93 P: 40 MI: 171 QRS: 86 QRSD: 103 T: -10 QT: 368 QTc: 458 Interpretive Statements SINUS RHYTHM LOW QRS VOLTAGE [QRS DEFLECTION < 0.5/1.0 mV IN LIMB/CHEST LEADS] INCOMPLETE RIGHT BUNDLE BRANCH BLOCK [90+ ms QRS DURATION, TERMINAL R IN V1/V2, 40+ ms S IN I/aVL/V4/V5/V6] ANTEROSEPTAL MYOCARDIAL INFARCTION , PROBABLY OLD [40+ ms Q WAVE IN V1-V4] Compared to ECG 01/16/2023 01:35:48 No significant changes Electronically Signed On 01-16-2023 16:29:49 CDT by Rosie Ivey M.D. [id number]
[2023-01-16 04:12] LABS: Troponin 5 2HR 771.4 ng/L (0-15); Troponin 5 2HR Delta -6.6 ABS# (0-10)
[2023-01-16] MEDS: ondansetron 4 MG Tablet PO (05:10)
== END 2023-01-16 05:14 | disposition home or self-care (01) ==
PROVIDERS: Emergency Provider Emergency Medicine; PCP Internal Medicine Nephrology
DX: R07.9 Chest pain, unspecified (principal); R18.8 Other ascites; E11.22 Type 2 diabetes mellitus with diabetic chronic kidney disease; I13.2 Hypertensive heart and chronic kidney disease with heart failure and with stage 5 chronic kidney disease, or end stage renal disease; I50.9 Heart failure, unspecified; N18.6 End stage renal disease; Z99.2 Dependence on renal dialysis; J44.9 Chronic obstructive pulmonary disease, unspecified; Z90.5 Acquired absence of kidney; Z77.22 Contact with and (suspected) exposure to environmental tobacco smoke (acute) (chronic)
CPT/HCPCS: 71045; 80053; 83690; 83880; 84484; 85025; 85610; 93005; 94640; 96374; 96375; 99285; J2270; J2405; J7613; Q0162

== ENCOUNTER 2023-01-17 09:55 | Day surgery (SDC) | payer MEDICARE, MEDICAID, SELFPAY ==
[2023-01-16 13:20] VITALS: BMI 35.6
[2023-01-17 10:12] VITALS: BP 90/52; PULSE 92; RESP 20; TEMP 36.3; O2SAT 96
--- NOTE | 2023-01-17 10:17 | US_ITS ---
WS: [id number] ULTRASOUND-GUIDED THERAPEUTIC PARACENTESIS Procedure, risks, and complications have been explained to the patient. Consent is obtained. Utilizing aseptic technique and 1% buffered lidocaine, a small dermatome was made through which a 5 F rench Yueh catheter was inserted. Approximately 11,200 ml of clear peritoneal fluid was obtained wit hout difficulty. No complications encountered. US/US paracentesis abd w [id number] IMPRESSION: Uncomplicated paracentesis yielding 11,200 ml of peritoneal fluid.
[2023-01-17] MEDS: albumin 75 G/300 ML BAG 300 G IV (11:21)
[2023-01-17 12:41] VITALS: BP 92/52; PULSE 86; RESP 17; O2SAT 96
== END 2023-01-17 12:45 | disposition home or self-care (01) ==
LOC: GILAB 09:56
PROVIDERS: Radiology Diagnostic Radiology; PCP Internal Medicine Nephrology; Visit Provider Internal Medicine Nephrology
PROC: (CPT 49082; principal; 2023-01-17 11:00)
DX: R18.8 Other ascites (principal); T87.81 Dehiscence of amputation stump; Y83.8 Other surgical procedures as the cause of abnormal reaction of the patient, or of later complication, without mention of misadventure at the time of the procedure; Z89.512 Acquired absence of left leg below knee; T81.31XD Disruption of external operation (surgical) wound, not elsewhere classified, subsequent encounter; E11.52 Type 2 diabetes mellitus with diabetic peripheral angiopathy with gangrene; L97.812 Non-pressure chronic ulcer of other part of right lower leg with fat layer exposed
CPT/HCPCS: 11042; 49083; 96365; 97597; P9046

== ENCOUNTER → 2023-01-24 14:26 | Outpatient (BNVA) | payer MEDICARE, MEDICAID, SELFPAY | PROVIDERS: PCP Internal Medicine Nephrology; Visit Provider Nurse Practitioner Family | DX: T87.81 Dehiscence of amputation stump (principal); Y83.8 Other surgical procedures as the cause of abnormal reaction of the patient, or of later complication, without mention of misadventure at the time of the procedure; Z89.512 Acquired absence of left leg below knee; E11.52 Type 2 diabetes mellitus with diabetic peripheral angiopathy with gangrene; L97.812 Non-pressure chronic ulcer of other part of right lower leg with fat layer exposed; L89.319 Pressure ulcer of right buttock, unspecified stage | CPT/HCPCS: 11042; 97597; A6212 ×2 ==

== ENCOUNTER → 2023-01-26 07:39 | Outpatient (BNVA) | payer MEDICARE, MEDICAID, SELFPAY | PROVIDERS: PCP Internal Medicine Nephrology; Visit Provider Student in an Organized Health Care Education/Training Program | DX: I97.89 Other postprocedural complications and disorders of the circulatory system, not elsewhere classified (principal); I96 Gangrene, not elsewhere classified; Z89.512 Acquired absence of left leg below knee | CPT/HCPCS: 99213 ==

== ENCOUNTER → 2023-01-29 14:19 | Outpatient (BNVA) | payer MEDICARE, MEDICAID, SELFPAY | PROVIDERS: PCP Internal Medicine Nephrology; Visit Provider Thoracic Surgery (Cardiothoracic Vascular Surgery) | DX: T87.81 Dehiscence of amputation stump (principal); Y83.8 Other surgical procedures as the cause of abnormal reaction of the patient, or of later complication, without mention of misadventure at the time of the procedure; Z89.512 Acquired absence of left leg below knee; L89.892 Pressure ulcer of other site, stage 2; E11.52 Type 2 diabetes mellitus with diabetic peripheral angiopathy with gangrene; L97.812 Non-pressure chronic ulcer of other part of right lower leg with fat layer exposed; L89.311 Pressure ulcer of right buttock, stage 1 | CPT/HCPCS: 11042; 97597 ==

== ENCOUNTER 2023-02-01 12:58 | Day surgery (SDC) | payer MEDICARE, MEDICAID, SELFPAY ==
--- NOTE | 2023-02-01 13:01 | US_ITS ---
WS: [id number] ULTRASOUND-GUIDED 7000 PARACENTESIS Procedure, risks, and complications have been explained to the patient. Consent is obtained. Utilizing aseptic technique and 1% buffered lidocaine, a small dermatome was made through which a 5 F rench Yueh catheter was inserted. Approximately 7000 ml of light yellow peritoneal fluid was obtained without difficulty. No complications encountered. US/US paracentesis abd w [id number] IMPRESSION: Uncomplicated paracentesis yielding 7000 ml of peritoneal fluid.
[2023-02-01 13:25] VITALS: BP 104/57; PULSE 98; RESP 18; TEMP 36.6; O2SAT 93; BMI 44.6
[2023-02-01] MEDS: albumin 75 G/300 ML BAG 300 G IV (13:55)
[2023-02-01 14:00] VITALS: BP 103/59
[2023-02-01 15:10] VITALS: BP 114/60
== END 2023-02-01 15:12 | disposition home or self-care (01) ==
LOC: GILAB 12:59
PROVIDERS: Radiology Diagnostic Radiology; PCP Internal Medicine Nephrology; Visit Provider Internal Medicine Nephrology
PROC: (CPT 49082; principal; 2023-02-01 13:00)
DX: R18.8 Other ascites (principal)
CPT/HCPCS: 49083; P9046

== ENCOUNTER 2023-02-14 11:14 | Day surgery (SDC) | payer MEDICARE, MEDICAID, SELFPAY ==
[2023-02-14 11:44] VITALS: BP 137/77; PULSE 82; RESP 18; TEMP 36.2; O2SAT 93
--- NOTE | 2023-02-14 12:22 | US_ITS ---
WS: [id number] Exam: US paracentesis abd w [id number] Date/Time of Exam: 02/14/2023 12:52 PM Reason For Exam: ascites The procedure and potential complications were explained to the patient in detail. Written consent wa s obtained. A prominent pocket of ascites was localized in the right lower quadrant of the abdomen wi th ultrasound. This area was prepped and draped in a sterile fashion. The soft tissues were anestheti zed with several cc's of 1% Xylocaine. A 5 Sierra Leonean Yueh catheter was then inserted. Approximately 13,5 00 mL of straw-colored transparent fluid were withdrawn. The patient tolerated the procedure without incident. US/US paracentesis abd w [id number] IMPRESSION: 1. Uneventful paracentesis as detailed above.
[2023-02-14] MEDS: albumin 75 G/300 ML BAG 300 G IV (12:50)
== END 2023-02-14 15:08 | disposition home or self-care (01) ==
LOC: GILAB 11:15
PROVIDERS: PCP Internal Medicine; Visit Provider Internal Medicine Nephrology
PROC: (CPT 49082; principal; 2023-02-14 12:00)
DX: R18.8 Other ascites (principal)
CPT/HCPCS: 49083; P9046

== ENCOUNTER → 2023-02-19 09:25 | Outpatient (BNVA) | payer MEDICARE, MEDICAID, SELFPAY | PROVIDERS: PCP Internal Medicine; Visit Provider Podiatrist Foot & Ankle Surgery | DX: E11.9 Type 2 diabetes mellitus without complications (principal); Z89.512 Acquired absence of left leg below knee; M86.68 Other chronic osteomyelitis, other site | CPT/HCPCS: 11720 ==

== ENCOUNTER 2023-02-28 10:03 | Day surgery (SDC) | payer MEDICARE, MEDICAID, SELFPAY ==
[2023-02-28 10:17] VITALS: BP 99/66; PULSE 85; RESP 18; TEMP 36.3; O2SAT 93; BMI 40.3
--- NOTE | 2023-02-28 10:51 | US_ITS ---
WS: [id number] ULTRASOUND-GUIDED PARACENTESIS CLINICAL INFORMATION: ascites COMPARISON: None. Procedure Informed consent: The risks, benefits, and alternatives of the procedure were discussed with the riya ent. Verbal and written consent was obtained. Timeout: A timeout was performed to confirm the correct patient, procedure, and site. Preparation: A suitable skin site was identified. The patient was prepped and draped in usual sterile fashion. Lidocaine 1% was used for local anesthesia. Catheter: 4 Zambian One-step Yueh catheter. Side: RIGHT Lower quadrant. Fluid Volume: 8350 ml Color: Clear yellow DISPOSITION: Discarded safely. Complications: None. Patient disposition: Discharged from the department in stable condition. US/US paracentesis abd w [id number] IMPRESSION: Uncomplicated ultrasound-guided paracentesis. Removal of 8350 cc
[2023-02-28] MEDS: albumin 75 G/300 ML BAG 999 G IV (11:51)
== END 2023-02-28 13:00 | disposition home or self-care (01) ==
LOC: GILAB 10:03
PROVIDERS: Radiology Neuroradiology; PCP Internal Medicine; Visit Provider Internal Medicine Nephrology
PROC: (CPT 49082; principal; 2023-02-28 12:00)
DX: R18.8 Other ascites (principal); T87.81 Dehiscence of amputation stump; Y83.8 Other surgical procedures as the cause of abnormal reaction of the patient, or of later complication, without mention of misadventure at the time of the procedure; Z89.512 Acquired absence of left leg below knee; E11.52 Type 2 diabetes mellitus with diabetic peripheral angiopathy with gangrene; L97.812 Non-pressure chronic ulcer of other part of right lower leg with fat layer exposed; Z09 Encounter for follow-up examination after completed treatment for conditions other than malignant neoplasm
CPT/HCPCS: 11042; 49083; 96365; 97597; A6212; P9046

== ENCOUNTER → 2023-03-07 10:20 | Outpatient (BNVA) | payer MEDICARE, MEDICAID, SELFPAY | PROVIDERS: PCP Internal Medicine; Visit Provider Thoracic Surgery (Cardiothoracic Vascular Surgery) | DX: T87.81 Dehiscence of amputation stump (principal); Y83.8 Other surgical procedures as the cause of abnormal reaction of the patient, or of later complication, without mention of misadventure at the time of the procedure; Z89.512 Acquired absence of left leg below knee; E11.52 Type 2 diabetes mellitus with diabetic peripheral angiopathy with gangrene; L97.812 Non-pressure chronic ulcer of other part of right lower leg with fat layer exposed | CPT/HCPCS: 11042; 97597; A6021; A6219 ==

== ENCOUNTER 2023-03-09 06:21 | Outpatient (CLI) | payer MEDICARE, MEDICAID, SELFPAY ==
--- NOTE | 2023-03-09 | USCV_ITS ---
Akil Velasco Age: 53 Gender: M : 1970 Exam Date: 03/09/2023 06:40 Ordering Phys: Sulma Wetzel MD Technologist: KENDELL [place] [facility] [place] SOB [place] BP: 100 / 70 HR: 86 Rhythm: Sinus Technical Quality: Adequate MEASUREMENTS (Male / Female) Normal Values 2D ECHO LV Diastolic Diameter PLAX 5.4 cm 4.2 - 5.9 / 3.9 - 5.3 cm LV Systolic Diameter PLAX 3.7 cm LV Chamber Size 4.7 cm IVS Diastolic Thickness 1.4 cm 0.6 - 1.0 / 0.6 - 0.9 cm IVS Systolic Thickness 1.7 cm LVPW Diastolic Thickness 1.6 cm 0.6 - 1.0 / 0.6 - 0.9 cm LVPW Systolic Thickness 1.8 cm RV Chamber Size 4.2 cm LVOT Diameter 2.0 cm LV Ejection Fraction 2D Teich 58.4 % LV Ejection Fraction MOD 2C 58.9 % LV Ejection Fraction 2C AL 60.2 % LA Diameter 5.2 cm LA Width 4.2 cm LA Height 5.8 cm RA Width 4.8 cm RA Height 6.1 cm Aorta at Sinotubular Diameter 3.3 cm IVC Diameter 2.1 cm M-MODE Aortic Annulus Diameter 3.7 cm LA Ao Ratio MM 1.5 MV E Point Septal Separation 0.7 cm DOPPLER AV Peak Velocity 284.0 cm/s LVOT Peak Velocity 162.6 cm/s AV Area Cont Eq vti 1.8 cm squared AV Area Cont Eq pk 1.8 cm squared MV Area PHT 4.2 cm squared Mitral E to A Ratio 1.8 MV E' Velocity 69.5 cm/s Mitral E to MV E' Ratio 12.4 Mitral E to LV E' Lateral Ratio 10.9 Mitral E to LV E' Septal Ratio 14.6 TR Peak Velocity 234.0 cm/s TR Peak Gradient 21.9 mmHg TR Mean Velocity 166.6 cm/s TR Mean Gradient 11.7 mmHg TR Velocity Time Integral 70.8 cm TV Peak E Velocity 86.0 cm/s Right Atrial Pressure 3.0 mmHg Pulmonary Artery Systolic Pressu 24.9 mmHg RV Acceleration Time 0.1 s RV Ejection Time 0.4 s RV AcT/ET 0.3 FINDINGS Left Ventricle Normal left ventricular size, systolic function and wall thickness, with no regional wall motion abnormalities. Grade I/IV diastolic dysfunction (abnormal relaxation filling pattern), normal to mildly elevated filling pressures. Left ventricular ejection fraction is estimated at 55 %. Right Ventricle Mildly increased right ventricular size. Normal right ventricular systolic function. Normal right ventricular systolic pressure. Right Atrium Mildly increased right atrial size. Left Atrium Mildly increased left atrial size. Mitral Valve Structurally normal mitral valve. Mitral valve sclerosis. Mild mitral annular calcification. No mitral valve regurgitation. Aortic Valve Structurally normal trileaflet aortic valve. Mild aortic valve calcification. Mild aortic valve stenosis, mean gradient 18.1 mmHg, KELSEY 1.8 cm squared. No aortic valve regurgitation. Tricuspid Valve Structurally normal tricuspid valve. Trace tricuspid valve regurgitation. Pulmonic Valve Pulmonic valve not well visualized. Pericardium Normal pericardium without effusion. Aorta Normal ascending aorta dimension. IVC The inferior vena cava appears normal. CONCLUSIONS Normal left ventricular size, systolic function and wall thickness, with no regional wall motion abnormalities. Grade I/IV diastolic dysfunction (abnormal relaxation filling pattern), normal to mildly elevated filling pressures. Left ventricular ejection fraction is estimated at 55 %. Mildly increased right atrial size. Mildly increased left atrial size. Structurally normal mitral valve. Mitral valve sclerosis. Mild mitral annular calcification. No mitral valve regurgitation. Structurally normal trileaflet aortic valve. Mild aortic valve calcification. Mild aortic valve stenosis, mean gradient 18.1 mmHg, KELSEY 1.8 cm squared. No aortic valve regurgitation. Compared to the previous study from 11/12/2020, aortic stenosis appears to be new. Otherwise, no change. Dr. Colby Fernandez MD (Electronically Signed) Final Date: 09 March 2023 14:26 S
== END 2023-03-09 06:22 | disposition home or self-care (01) ==
PROVIDERS: PCP Internal Medicine; Visit Provider Internal Medicine
DX: I07.1 Rheumatic tricuspid insufficiency (principal)
CPT/HCPCS: 93306

== ENCOUNTER 2023-03-14 10:32 | Day surgery (SDC) | payer MEDICARE, MEDICAID, SELFPAY ==
[2023-03-13 14:26] VITALS: BMI 35.6
[2023-03-14 10:44] VITALS: BP 115/68; PULSE 84; RESP 16; TEMP 36.6; O2SAT 92
--- NOTE | 2023-03-14 10:53 | US_ITS ---
WS: [id number] ULTRASOUND-GUIDED PARACENTESIS CLINICAL INFORMATION: ascites COMPARISON: None. Procedure Informed consent: The risks, benefits, and alternatives of the procedure were discussed with the riya ent. Verbal and written consent was obtained. Timeout: A timeout was performed to confirm the correct patient, procedure, and site. Preparation: A suitable skin site was identified. The patient was prepped and draped in usual sterile fashion. Lidocaine 1% was used for local anesthesia. Catheter: 4 Indonesian One-step Yueh catheter. Side: Left lower quadrant. Fluid Volume: 14,275 ml Color: Clear yellow DISPOSITION: Discarded safely. Complications: None. Patient disposition: Discharged from the department in stable condition. IMPRESSION: Uncomplicated ultrasound-guided paracentesis. Removal of 14,275 cc
[2023-03-14] MEDS: albumin 75 G/300 ML BAG 60 G IV (12:05)
== END 2023-03-14 14:00 | disposition home or self-care (01) ==
LOC: GILAB 10:33
PROVIDERS: Radiology Neuroradiology; PCP Internal Medicine; Visit Provider Internal Medicine
PROC: (CPT 49082; principal; 2023-03-14 12:00)
DX: R18.8 Other ascites (principal)
CPT/HCPCS: 49083; P9046

== ENCOUNTER 2023-03-28 10:31 | Day surgery (SDC) | payer MEDICARE, MEDICAID, SELFPAY ==
[2023-03-27 12:53] VITALS: BMI 34.9
--- NOTE | 2023-03-28 10:39 | US_ITS ---
WS: [id number] ULTRASOUND-GUIDED PARACENTESIS CLINICAL INFORMATION: Ascites COMPARISON: None. Procedure Informed consent: The risks, benefits, and alternatives of the procedure were discussed with the riya ent. Verbal and written consent was obtained. Timeout: A timeout was performed to confirm the correct patient, procedure, and site. Preparation: A suitable skin site was identified. The patient was prepped and draped in usual sterile fashion. Lidocaine 1% was used for local anesthesia. Catheter: 4 Greenlandic One-step Yueh catheter. Side: LEFT lower quadrant. Fluid Volume: 13,250 ml Color: Clear yellow DISPOSITION: Discarded safely. Complications: None. Patient disposition: Discharged from the department in stable condition. IMPRESSION: Uncomplicated ultrasound-guided paracentesis. Removal of 13,250 cc
[2023-03-28 11:02] VITALS: BP 96/54; PULSE 84; RESP 18; TEMP 36.7; O2SAT 93
[2023-03-28] MEDS: albumin 75 G/300 ML BAG 200 G IV (11:15)
== END 2023-03-28 12:53 | disposition home or self-care (01) ==
LOC: GILAB 10:32
PROVIDERS: Radiology Neuroradiology; PCP Internal Medicine; Visit Provider Internal Medicine Nephrology
PROC: (CPT 49082; principal; 2023-03-28 12:00)
DX: R18.8 Other ascites (principal); T87.81 Dehiscence of amputation stump; Y83.8 Other surgical procedures as the cause of abnormal reaction of the patient, or of later complication, without mention of misadventure at the time of the procedure; Z89.512 Acquired absence of left leg below knee; E11.52 Type 2 diabetes mellitus with diabetic peripheral angiopathy with gangrene; L97.812 Non-pressure chronic ulcer of other part of right lower leg with fat layer exposed
CPT/HCPCS: 49083; 96365; 97597; A6021; P9046

== ENCOUNTER → 2023-04-04 09:26 | Outpatient (BNVA) | payer MEDICARE, MEDICAID, SELFPAY | PROVIDERS: PCP Internal Medicine; Visit Provider Thoracic Surgery (Cardiothoracic Vascular Surgery) | DX: T87.81 Dehiscence of amputation stump (principal); Y83.8 Other surgical procedures as the cause of abnormal reaction of the patient, or of later complication, without mention of misadventure at the time of the procedure; Z89.512 Acquired absence of left leg below knee; E11.52 Type 2 diabetes mellitus with diabetic peripheral angiopathy with gangrene; L97.822 Non-pressure chronic ulcer of other part of left lower leg with fat layer exposed; L89.892 Pressure ulcer of other site, stage 2 | CPT/HCPCS: 97597; A6219 ==

== ENCOUNTER 2023-04-11 07:27 | Outpatient (CLI) | payer MEDICARE, MEDICAID, SELFPAY ==
--- NOTE | 2023-04-11 07:35 | USCV_ITS ---
Akil Velasco Age: 53 Gender: M : 1970 Exam Date: 04/11/2023 11:40 Ordering Phys: Colby Solis MD Technologist: CT [place] [facility] [place]ication: abd doppler Vein Flow Artery Peak Velocity RHV Seen MHA 128.0 MHV Seen RHA 112.0 LHV Seen LHA 55.0 MPV Seen SPA 127.0 RPV Seen LPV Seen SPV Seen IVC Seen Liver Length: 18.8 Spleen Length: 19.5 PV Diameter: 13.0 Fluid Collection/Ascites: NO Location: Findings no abnormality identified Conclusions Hepatopetal flow in Portal veins Hepatic veins are patent Hepatic arteries are patent Hepatomegaly 18.8cm with coarse echotexture Splenomegaly 19.5cm Ascites LLQ Osmel Ashraf MD (Electronically Signed) Final Date: 19 April 2023 15:05 S
== END 2023-04-11 07:28 | disposition home or self-care (01) ==
PROVIDERS: PCP Internal Medicine; Visit Provider Internal Medicine Gastroenterology
DX: R18.8 Other ascites (principal); R16.2 Hepatomegaly with splenomegaly, not elsewhere classified
CPT/HCPCS: 76700; 93975

== ENCOUNTER 2023-04-11 11:13 | Day surgery (SDC) | payer MEDICARE, MEDICAID, SELFPAY ==
[2023-04-11 11:24] VITALS: BP 91/54; PULSE 72; RESP 18; TEMP 36.3; O2SAT 91
--- NOTE | 2023-04-11 11:27 | US_ITS ---
WS: [id number] ULTRASOUND-GUIDED PARACENTESIS CLINICAL INFORMATION: ascities COMPARISON: None. Procedure Informed consent: The risks, benefits, and alternatives of the procedure were discussed with the riya ent. Verbal and written consent was obtained. Timeout: A timeout was performed to confirm the correct patient, procedure, and site. Preparation: A suitable skin site was identified. The patient was prepped and draped in usual sterile fashion. Lidocaine 1% was used for local anesthesia. Catheter: 4 [place] Leonean One-step Yueh catheter. Side: LEFT lower quadrant. Fluid Volume: 13,800 ml Color: Clear yellow DISPOSITION: Discarded safely. Complications: None. Patient disposition: Discharged from the department in stable condition. IMPRESSION: Uncomplicated ultrasound-guided paracentesis. Removal of 13,800 cc
[2023-04-11] MEDS: albumin 75 G/300 ML BAG 60 G IV (12:54)
[2023-04-11 14:40] VITALS: BP 91/51
== END 2023-04-11 14:49 | disposition home or self-care (01) ==
LOC: GILAB 11:13
PROVIDERS: Radiology Neuroradiology; PCP Internal Medicine; Visit Provider Internal Medicine Nephrology
PROC: (CPT 49082; principal; 2023-04-11 12:00)
DX: R18.8 Other ascites (principal); E11.622 Type 2 diabetes mellitus with other skin ulcer; L89.892 Pressure ulcer of other site, stage 2; R16.2 Hepatomegaly with splenomegaly, not elsewhere classified
CPT/HCPCS: 49083; 93975; 96365; 97597; P9046

== ENCOUNTER → 2023-04-18 09:08 | Outpatient (BNVA) | payer MEDICARE, MEDICAID, SELFPAY | PROVIDERS: PCP Internal Medicine; Visit Provider Nurse Practitioner Family | DX: T87.81 Dehiscence of amputation stump (principal); Y83.8 Other surgical procedures as the cause of abnormal reaction of the patient, or of later complication, without mention of misadventure at the time of the procedure; Z89.512 Acquired absence of left leg below knee; E11.52 Type 2 diabetes mellitus with diabetic peripheral angiopathy with gangrene; L97.812 Non-pressure chronic ulcer of other part of right lower leg with fat layer exposed; L89.892 Pressure ulcer of other site, stage 2; S80.811D Abrasion, right lower leg, subsequent encounter; X58.XXXD Exposure to other specified factors, subsequent encounter | CPT/HCPCS: 99212 ==

== ENCOUNTER → 2023-04-30 09:36 | Day surgery (SDC) | payer MEDICARE, MEDICAID, SELFPAY ==
[2023-04-30 09:52] VITALS: BP 111/67; PULSE 78; RESP 14; TEMP 36.3; O2SAT 90
--- NOTE | 2023-04-30 10:13 | US_ITS ---
WS: [id number] ULTRASOUND-GUIDED THERAPEUTIC PARACENTESIS Procedure, risks, and complications have been explained to the patient. Consent is obtained. Utilizing aseptic technique and 1% buffered lidocaine, a small dermatome was made through which a 5 F rench Yueh catheter was inserted. Approximately 13,600 ml of clear peritoneal fluid was obtained wit hout difficulty. No complications encountered. IMPRESSION: Uncomplicated paracentesis yielding 13,600 ml of peritoneal fluid.
[2023-04-30] MEDS: albumin 75 G/300 ML BAG 500 G IV (12:35)
== END ==
PROVIDERS: Radiology Diagnostic Radiology; PCP Internal Medicine; Visit Provider Internal Medicine Nephrology
PROC: (CPT 49082; principal; 2023-04-30 10:30)
DX: R18.8 Other ascites (principal)
CPT/HCPCS: 49083; 96365; P9046

== ENCOUNTER 2023-05-07 02:20 | Inpatient (IN) | payer MEDICARE, MEDICAID, SELFPAY ==
[2023-05-07] VITALS (19 sets, daily range): BP systolic 82–113; BP diastolic 4–68; PULSE 77–91; RESP 18–80; TEMP 36.5–37.2; O2SAT 91–96; BMI 34.2
--- NOTE | 2023-05-07 02:27 | XRR_ITS ---
PROCEDURE INFORMATION: Exam: XR Chest Exam date and time: 05/07/2023 2:30 AM Age: 53 years old Clinical indication: Shortness of breath; Prior surgery; Surgery date: 6+ months; Surgery type: Partial nephrectomy; Patient HX: C/O SOB. History of copd, chf, and end stage renal disease. TECHNIQUE: Imaging protocol: Radiologic exam of the chest. Views: 1 view. COMPARISON: CR (CHEST, ) 01/16/2023 1:31 AM FINDINGS: Lungs: Unremarkable. No consolidation. Pleural spaces: Unremarkable. No pleural effusion. No pneumothorax. Heart/Mediastinum: Unremarkable. Stable mild cardiomegaly. No mediastinal widening. Bones/joints: Unremarkable. XR/XR chest 1V portable [id number] IMPRESSION: 1. No acute findings and no change. 2. Stable mild cardiomegaly.
--- NOTE | 2023-05-07 02:44 | W.ED.SOB ---
HPI - SOB/Dyspnea General: Chief Complaint: Shortness of Breath/Dyspnea Stated Complaint: RESP. DISTRESS Time Seen by Provider: 05/07/23 02:26 History of Present Illness: HPI Narrative: 53-year-old male presenting short of breath. He has a history of end-stage renal disease on dialysis, which she missed on Sunday. He denies fever. He is swollen. Says he uses oxygen sometimes . He says that he has had increasing pain, and has been tired, and slept through his dialysis appointment on Sunday. Associated symptoms: Deny abdominal pain, chest pain, fever(s), nausea, palpitations or vomiting Review of Systems Const: Denies: fever(s) Eyes: Denies: change in vision ENMT: Denies: throat pain Card: Denies: chest pain or palpitations Resp: Reports: dyspnea and non-productive cough GI: Denies: abdominal pain, nausea or vomiting [facility] ED PFSH: Medical History Accelerated hypertension Acquired equinovarus deformity of left foot Anemia Anemia of chronic disease BMI 50.0-59.9, adult Cardiac arrest (~07/2020) when had covid Cellulitis Cellulitis CHF (congestive heart failure), NYHA class III Chronic osteomyelitis of right foot Chronic respiratory failure with hypoxia and hypercapnia Chronic ulcer of left foot with fat layer exposed Chronic venous insufficiency COPD (chronic obstructive pulmonary disease) Diabetes Diabetic foot ulcers 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, limited to breakdown of skin ESRD (end stage renal disease) on dialysis First degree heart block Foot osteomyelitis, left Foot osteomyelitis, right Fracture of fifth metatarsal bone of left foot Fracture of fourth metatarsal bone of left foot Fracture, thoracic vertebra T7-T8 Gas gangrene History of left below knee amputation History of renal cell carcinoma Hypertension Hypovolemic shock Lung nodule Morbid obesity with BMI of 40.0-44.9, adult Neuropathy Non-healing ulcer of right foot with fat layer exposed Non-pressure chronic ulcer of other part of right foot with necrosis of muscle Obesity hypoventilation syndrome Obstructive sleep apnea non compliant with home bipap/cpap Osteomyelitis Osteomyelitis Pneumonia due to 2019-nCoV (~07/2020) Pre-ulcerative calluses PVD (peripheral vascular disease) Renal cell carcinoma History bilateral renal cell carcinoma 2007 then recurrence on the contralateral side 2011. No recurrence for long-term follow-up with some suspicion on CT scan April 2020. Restrictive lung disease Type 2 diabetes mellitus Type 2 diabetes mellitus with diabetic polyneuropathy 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 Ulcer of sacral region, stage 1 Urinary retention Vitamin D deficiency Xerosis of skin Surgical History H/O partial nephrectomy bilateral H/O wisdom tooth extraction History of cataract surgery Hx of lymph node excision Status post below-knee amputation of left lower extremity Family History Father , at age 65 Diabetes Cancer Metastatic prostate cancer to liver Mother , at age 72 Diabetes Grandfather Diabetes Cancer Other Anemia Hyperlipidemia Social History Smoking and tobacco status: never smoked Second hand smoke exposure: Yes Smoking risk assessment/counseling performed?: Yes Alcohol intake: current Alcohol intake frequency: holidays/special occasions only Substance/Drug Use: never Lives independently: Yes Household members: spouse Housing: House Marital status: service: No Current occupational status: retired Pets and animals: Yes Do you think of yourself as: Straight/Heterosexual Current gender identity: Male Physical Exam Const: GENERAL APPEARANCE: cooperative and ill appearing HENMT: COMMON NORMALS: normocephalic, atraumatic and Normal external nose present HEAD & SCALP: normocephalic and atraumatic FACE & SINUS: normal facial exam and face symmetric NOSE: Normal external nose present Eye: COMMON NORMALS: Equal, round and reactive pupils present and EOMs intact bilaterally PUPIL: Yes Equal, round and reactive pupils present Neck/C-Spine: GENERAL: Yes trachea midline Chest: CHEST: Yes Symmetrical chest wall rise Resp: COMMON NORMALS: clear to auscultation bilaterally EFFORT & INSPECTION: Yes tachypneic and Yes labored (Mildly) AUSCULTATION: clear to auscultation bilaterally and diminished lung sounds Cardio: COMMON NORMALS: regular rate and regular rhythm RATE: regular rate RHYTHM: regular rhythm GI: INSPECTION: Yes abdominal distension (Severe with cutaneous venous distention) Extremity: NARRATIVE EXTREMITY EXAM: Left side amputated right side mildly mottled, open skin ulcerations present. Draining. Cellulitic. Neuro: RADHA COMA SCALE: document GCS findings Radha coma scale eye opening: Spontaneous [place] coma scale verbal response: Orientated [place] coma scale motor response: Obey commands [place] coma scale total score: 15 Psych: COMMON NORMALS: mental status grossly normal Skin: NARRATIVE SKIN EXAM: See above Course Vital Signs: Vital signs: Vital Signs Temperature 97.7 F 05/07/23 02:28 Pulse Rate 79 05/07/23 04:35 Respiratory Rate 18 05/07/23 04:35 Blood Pressure 91/4 05/07/23 03:53 Pulse Oximetry 96 05/07/23 04:35 Oxygen Delivery Me thod Nasal Cannula 05/07/23 04:35 Oxygen Flow Rate 3 05/07/23 04:35 MDM - SOB/Dyspnea Medical Decision Making Chest x-ray shows significant cardiomegaly, vascular congestion without pleural effusion. He is on 3 L of oxygen. Saturations have been 95%. Blood pressure 108/60 currently. His potassium is 7. BUN 106 creatinine of 9. Phosphorus is 12.1. Magnesium is 2.1. His belly is quite edematous. Hemoglobin is 8 which is stable for the patient. He will need emergent dialysis given his potassium level. There is no significant EKG change, however. He will go to the [facility]. Nephrology was contacted from the emergency department, and message was left. Hospitalist will see the patient Lab Data 05/07/23 02:36 05/07/23 02:36 Labs/Radiology: Radiology Impressions Chest X-Ray 05/07/23 02:27 IMPRESSION: 1. No acute findings and no change. 2. Stable mild cardiomegaly. Laboratory Results WBC 5.59 10^3/uL (3.29-11.43) 05/07/23 02:36 RBC 3.27 10^6/uL (3.85-5.65) L 05/07/23 02:36 Hgb 8.00 g/dL (11.27-16.99) L 05/07/23 02:36 Hct 27.6 % (37-53) L 05/07/23 02:36 MCV 84.4 fl (82-101) 05/07/23 02:36 MCH 24.5 pg (27-33) L 05/07/23 02:36 MCHC 29.0 g/dL (30-55) L 05/07/23 02:36 RDW 16.6 % (12.1-15.1) H 05/07/23 02:36 Plt Count 135 10^3/cmm (157-399) L 05/07/23 02:36 MPV 10.4 fL (7.4-10.4) 05/07/23 02:36 Neut % (Auto) 76.0 % 05/07/23 02:36 Lymph % (Auto) 11.3 % 05/07/23 02:36 Richardson % (Auto) 7.7 % 05/07/23 02:36 Eos % (Auto) 4.3 % 05/07/23 02:36 Baso % (Auto) 0.5 % 05/07/23 02:36 Neut # (Auto) 4.25 10^3/uL (1.8-7.7) 05/07/23 02:36 Lymph # (Auto) 0.6 10^3/uL (0.8-4.8) L 05/07/23 02:36 Richardson # (Auto) 0.4 10^3/uL (0.2-0.9) 05/07/23 02:36 Eos # (Auto) 0.2 10^3/uL (0.0-0.8) 05/07/23 02:36 Baso # (Auto) 0.0 10^3/uL (0.0-0.1) 05/07/23 02:36 Nucleated RBC % (auto) 0 % 05/07/23 02:36 Nucleated RBCs # 0.0 /100WBC 05/07/23 02:36 Sodium 138 mmol/L (136-145) 05/07/23 02:36 Potassium 7.0 mmol/L (3.5-5.1) H* 05/07/23 02:36 Chloride 92 mmol/L (98-107) L 05/07/23 02:36 Carbon Dioxide 24 mmol/L (22-29) 05/07/23 02:36 Anion Gap 29.0 (5-19) H 05/07/23 02:36 BUN 106 mg/dL (6-20) H* D 05/07/23 02:36 Creatinine 9.0 mg/dL (0.7-1.2) H* 05/07/23 02:36 GFR Calculation 6.2 mL/min (90-130) L 05/07/23 02:36 Glucose 106 mg/dL (65-115) 05/07/23 02:36 Calculated Osmolality 320 mOsm/kg (285-295) H 05/07/23 02:36 Lactic Acid 1.6 mmol/L (0.5-2.2) 05/07/23 02:36 Calcium 8.1 mg/dL (8.5-10.5) L 05/07/23 02:36 Phosphorus 12.1 mg/dL (2.5-4.5) H* 05/07/23 02:36 Magnesium 2.1 mg/dL (1.7-2.3) 05/07/23 02:36 Total Bilirubin 0.3 mg/dL (0.15-1.2) 05/07/23 02:36 AST 17 U/L (0-40) 05/07/23 02:36 ALT 12 U/L (0-41) 05/07/23 02:36 Alkaline Phosphatase 86 U/L (40-130) 05/07/23 02:36 NT-Pro-B Natriuret Pep 78660 pg/mL (0-125) H 05/07/23 02:36 Total Protein 7.6 g/dL (6.6-8.7) 05/07/23 02:36 Albumin 3.3 g/dL (3.5-5.2) L 05/07/23 02:36 Globulin 4.3 g/dL (1.3-4.6) 05/07/23 02:36 All radiology interpretation(s) finalized by discharge Critical Care Time Critical Care Time: Critical Care Time: Yes Total Critical Care Time: 35 Attestation: This case had a high probability of a clinically significant, sudden, or life threatening deterioration of this patient's condition which required my full and direct attention, intervention and personal management. Time is independent of any procedures performed Discharge Plan Discharge Patient Disposition: Admitted As Inpatient Clinical Impression: Acute and chronic respiratory failure with hypoxia, Ascites, End-stage renal disease on hemodialysis, Acute hyperkalemia Condition: Fair Prescriptions: No Action (DME) Wheel Chair See Rx Instructions .Route .MEDSUPPLY Qty: 1 0RF Rx Instructions: As directed HOME (DME) Compression Stockings See Rx Instructions .Route .MEDSUPPLY Qty: 1 0RF Rx Instructions: As directed (DME) [place] boot modification See Rx Instructions .Route .MEDSUPPLY Qty: 1 0RF Rx Instructions: Straps are failing (DME) diabetic shoes with 3 heat molded insoles See Rx Instructions .Route .MEDSUPPLY Qty: 1 0RF Rx Instructions: As directed to HOME (DME) Prevalon boot See Rx Instructions .Route .MEDSUPPLY Qty: 1 0RF Rx Instructions: As directed ropinirole 0.25 mg tablet 0.25 mg PO BEDTIME PRN (Reason: Restless Leg(S)) Lokelma 5 gram powder in packet See Rx Instructions .ROUTE .COMPLEX Rx Instructions: 1 packet po daily on , , Sun, Sun - mix with 45 mL of water, drink immediately give other medications 2 hrs before or after this medication oxycodone 5 mg Tablet 5 mg PO Q6H PRN (Reason: Pain) atorvastatin 40 mg Tablet 40 mg PO DAILY cilostazol 50 mg Tablet 50 mg PO BID trazodone 100 mg Tablet 100 mg PO BEDTIME Pro-Stat AWC 17-100 gram-kcal/30 mL Liquid 30 ea PO BID Patient Comments: pt states he does not take this ondansetron HCl 4 mg tablet 4 mg PO Q4H PRN (Reason: Nausea) cholecalciferol (vitamin D3) [Vitamin D3] 25 mcg (1,000 unit) Tablet 25 mcg PO QAM sevelamer carbonate 800 mg tablet See Rx Instructions .ROUTE .COMPLEX Rx Instructions: 5 tabs po tid with meals and 4 tabs po bid with snacks venlafaxine [Effexor XR] 75 mg Capsule,Extended Release 24hr 75 mg PO DAILY famotidine 10 mg Tablet 10 mg PO DAILY Patient Comments: pt states he does not take this bisacodyl [Dulcolax (bisacodyl)] 10 mg Suppository 10 mg VA DAILY PRN (Reason: Constipation) pantoprazole 40 mg Tablet,Delayed Release (Dr/Ec) 40 mg PO DAILY Fleet Enema 19-7 gram/118 mL Enema 118 ml VA DAILY PRN (Reason: Constipation) Patient Comments: pt states he does not take this folic acid 1 mg Tablet 1 mg PO DAILY Patient Comments: pt states he does not take this hydroxyzine HCl 25 mg Tablet 25 mg PO Q6H PRN (Reason: Anxiety) polyethylene glycol 3350 [Miralax] 17 gram/dose Powder 17 g PO BID albuterol sulfate 90 mcg/actuation Hfa Aerosol Inhaler 2 puff INHALATION Q6H PRN (Reason: Shortness Of Breath) Patient Comments: pt states he does not take this B-complex with vitamin C Capsule 1 cap PO DAILY brexpiprazole 0.25 mg Tablet 0.25 mg PO DAILY diphenhydramine HCl [Benadryl Allergy] 25 mg tablet 25 mg PO DAILY PRN (Reason: itching) gabapentin 300 mg capsule 300 mg PO TID Referrals: Sulma Wetzel MD [Primary Care Provider] - Coding Level of Care Code ED 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
[2023-05-07 02:46] LABS: Basophils % 0.5 %; Eosinophils # 0.2 10^3/uL (0.0-0.8); Eosinophils % 4.3 %; Hematocrit 27.6 % (37-53); Lymphocytes # 0.6 10^3/uL (0.8-4.8); Lymphocytes % 11.3 %; Mean Corpuscular Hemoglobin 24.5 pg (27-33); Mean Corpuscular Volume 84.4 fl (82-101); Mean Platelet Volume 10.4 fL (7.4-10.4); Monocytes # 0.4 10^3/uL (0.2-0.9); Monocytes % 7.7 %; Neutrophils # 4.25 10^3/uL (1.8-7.7); Nucleated Red Blood Cells % 0 %; Platelet Count 135 10^3/cmm (157-399); Red Blood Count 3.27 10^6/uL (3.85-5.65); Red Cell Distribution Width 16.6 % (12.1-15.1); White Blood Count 5.59 10^3/uL (3.29-11.43)
--- NOTE | 2023-05-07 02:47 | ECG_ITS ---
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 Measurements Intervals [place] Rate: 79 P: 62 AR: 200 QRS: 146 QRSD: 113 T: 7 QT: 396 QTc: 455 Interpretive Statements SINUS RHYTHM RIGHT AXIS DEVIATION [QRS AXIS > 100] LOW QRS VOLTAGE IN PRECORDIAL LEADS [QRS DEFLECTION < 1.0 mV IN CHEST LEADS] RIGHT BUNDLE BRANCH BLOCK [120+ ms QRS DURATION, UPRIGHT V1, 40+ ms S IN I/aVL/V4/V5/V6] POSSIBLE ANTERIOR MYOCARDIAL INFARCTION , PROBABLY OLD [30 ms Q WAVE IN V3/V4, OR R < 0.2 mV IN V4] Compared to ECG 01/16/2023 03:42:31 Right-axis deviation now present Right bundle-branch block now present Incomplete right bundle-branch block no longer present Myocardial infarct finding still present Electronically Signed On 05-07-2023 8:24:02 CDT by Erik Arguelles M.D. [email or web address].[id number]
[2023-05-07 03:05] LABS: Lactic Sepsis W/Reflex 1.6 mmol/L (0.5-2.2)
[2023-05-07 03:15] LABS: Alanine Aminotransferase 12 U/L (0-41); Albumin Level 3.3 g/dL (3.5-5.2); Alkaline Phosphatase 86 U/L (40-130); Aspartate Amino Transferase 17 U/L (0-40); Calcium 8.1 mg/dL (8.5-10.5); Carbon Dioxide 24 mmol/L (22-29); Chloride 92 mmol/L (98-107); Globulin 4.3 g/dL (1.3-4.6); Glomerular Filtration Rate 6.2 mL/min (90-130); Glucose 106 mg/dL (65-115); Magnesium 2.1 mg/dL (1.7-2.3); Osmolality Calculated 320 mOsm/kg (285-295); Sodium 138 mmol/L (136-145); Total Bilirubin 0.3 mg/dL (0.15-1.2); Total Protein 7.6 g/dL (6.6-8.7)
[2023-05-07 03:17] LABS: Blood Urea Nitrogen 106 mg/dL (6-20); Phosphorus 12.1 mg/dL (2.5-4.5)
[2023-05-07 03:36] LABS: NT Pro B Type Natriuretic Pept 51933 pg/mL (0-125)
[2023-05-07] MEDS: sodium bicarbonate 8.4% 1 mEq/mL 50mL Syr 50 MEQ IVP (03:48)
[2023-05-07] MEDS: albuterol 2.5 mg/3 mL Neb INHALATION (04:30)
[2023-05-07 04:43] LABS: Glucose Point of Care 77 mg/dL (70-110)
--- NOTE | 2023-05-07 05:37 | US_ITS ---
WS: [id number] ULTRASOUND-GUIDED PARACENTESIS CLINICAL INFORMATION: abdominal distention COMPARISON: None. Procedure Informed consent: The risks, benefits, and alternatives of the procedure were discussed with the riya ent. Verbal and written consent was obtained. Timeout: A timeout was performed to confirm the correct patient, procedure, and site. Preparation: A suitable skin site was identified. The patient was prepped and draped in usual sterile fashion. Lidocaine 1% was used for local anesthesia. Catheter: 4 Malian One-step Yueh catheter. Side: LEFT lower quadrant. Fluid Volume: 8000 ml Color: Clear yellow DISPOSITION: Discarded safely. Complications: None. Patient disposition: Discharged from the department in stable condition. IMPRESSION: Uncomplicated ultrasound-guided paracentesis. Removal of 8000 cc
--- NOTE | 2023-05-07 05:44 | P.HP_ITS ---
Providers/Chief Complaint Primary Care Provider: Sulma Wetzel MD Chief Complaint: RESP. DISTRESS History of Present Illness Akil Velasco is a 53 year old male with a past medical history of end-stage renal disease on dialysis, history of recurrent abdominal ascites receiving outpatient paracentesis, history of CHF, history of left BKA, history of right diabetic ulcers, who presents to [facility] as he missed dialysis on Sunday, on Sunday morning, he developed shortness of breath, lower extremity edema, increased abdominal distention, his shortness of breath persisted, so he came to the emergency room for evaluation. He denies any chest pain, palpitations, no lightheadedness, dizziness, no nausea, no vomiting does complain of abdominal distention, his last paracentesis was about a week ago, he does urinate a bit, denies any dysuria, Review of Systems Const: Denies: fever(s) or chills Eyes: Denies: change in vision Card: Denies: chest pain Resp: Reports: dyspnea and non-productive cough GI: Reports: abdominal pain; Denies: nausea or vomiting : Denies: flank pain Musc: Denies: back pain Neuro: Denies: headache(s) Medications/Allergies Home Medications Medication Instructions Recorded Confirmed Last Taken Type Wheel Chair #1 ea 08/18/21 04/27/23 04/27/23 Rx ropinirole 0.25 mg tablet 0.25 mg PO BEDTIME PRN Restless 08/22/21 04/30/23 04/30/23 History Leg(S) sodium zirconium cyclosilicate 5 See Rx Instructions .Route .COMPLEX 08/22/21 04/30/23 04/29/23 History gram oral powder packet (Lokelma) cholecalciferol (vitamin D3) 25 25 mcg PO QAM 04/11/22 04/30/23 04/29/23 History mcg (1,000 unit) tablet (Vitamin D3) ondansetron HCl 4 mg tablet 4 mg PO Q4H PRN Nausea 04/11/22 04/27/23 04/27/23 History Compression Stockings #1 ea 04/12/22 04/27/23 04/27/23 Rx [place] boot modification #1 ea 07/17/22 04/27/23 04/27/23 Rx oxycodone 5 mg tablet 5 mg PO Q6H PRN Pain 08/16/22 04/30/23 04/29/23 History sevelamer carbonate 800 mg tablet See Rx Instructions .Route .COMPLEX 09/18/22 04/30/23 04/29/23 History B-complex with vitamin C 1 cap PO DAILY 10/16/22 04/30/23 04/29/23 History albuterol sulfate 90 mcg/actuation 2 puff inhalation Q6H PRN 10/16/22 04/30/23 04/29/23 History aerosol inhaler Shortness Of Breath bisacodyl 10 mg rectal suppository 10 mg MA DAILY PRN Constipation 10/16/22 1 04/29/23 History (Dulcolax (bisacodyl)) brexpiprazole 0.25 mg tablet 0.25 mg PO DAILY 10/16/22 04/30/23 04/29/23 History diphenhydramine HCl 25 mg tablet 25 mg PO DAILY PRN itching 10/16/22 04/30/23 03/28/23 History (Benadryl Allergy) famotidine 10 mg tablet 10 mg PO DAILY 10/16/22 04/30/23 04/10/23 History folic acid 1 mg tablet 1 mg PO DAILY 10/16/22 04/30/23 04/10/23 History hydroxyzine HCl 25 mg tablet 25 mg PO Q6H PRN Anxiety 10/16/22 04/27/23 04/02/23 History pantoprazole 40 mg tablet,delayed 40 mg PO DAILY 10/16/22 04/27/23 04/16/23 History release polyethylene glycol 3350 17 17 g PO BID 10/16/22 04/30/23 04/29/23 History gram/dose oral powder (Miralax) sodium phosphates 19 gram-7 118 ml MA DAILY PRN Constipation 10/16/22 04/30/23 03/28/23 History gram/118 mL enema (Fleet Enema) venlafaxine 75 mg capsule,extended 75 mg PO DAILY 10/16/22 04/30/23 04/29/23 History release 24 hr (Effexor XR) Prevalon boot #1 ea 11/21/22 04/27/23 04/27/23 Rx amino acids-protein hydrolysate 17 30 ea PO BID 11/21/22 04/30/23 04/10/23 History gram-100 kcal/30 mL oral liquid (Pro-Stat AWC) atorvastatin 40 mg tablet 40 mg PO DAILY 11/21/22 04/30/23 04/29/23 History cilostazol 50 mg tablet 50 mg PO BID 11/21/22 04/30/23 04/29/23 History trazodone 100 mg tablet 100 mg PO BEDTIME 11/21/22 04/30/23 04/29/23 History diabetic shoes with 3 heat molded #1 ea 12/15/22 04/27/23 04/27/23 Rx insoles gabapentin 300 mg capsule 300 mg PO TID 01/02/23 04/30/23 04/29/23 History Allergies Allergy/AdvReac Type Severity Reaction Status Date / Time linezolid [From Zyvox] Allergy tendonitis Verified 05/07/23 02:33 ciprofloxacin [From Cipro] AdvReac Severe Tendonitis Verified 05/07/23 02:33 PFSH Acute PFSH: Medical History Accelerated hypertension Acquired equinovarus deformity of left foot Anemia Anemia of chronic disease BMI 50.0-59.9, adult Cardiac arrest (~07/2020) when had covid Cellulitis Cellulitis CHF (congestive heart failure), NYHA class III Chronic osteomyelitis of right foot Chronic respiratory failure with hypoxia and hypercapnia Chronic ulcer of left foot with fat layer exposed Chronic venous insufficiency COPD (chronic obstructive pulmonary disease) Diabetes Diabetic foot ulcers 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, limited to breakdown of skin ESRD (end stage renal disease) on dialysis First degree heart block Foot osteomyelitis, left Foot osteomyelitis, right Fracture of fifth metatarsal bone of left foot Fracture of fourth metatarsal bone of left foot Fracture, thoracic vertebra T7-T8 Gas gangrene History of left below knee amputation History of renal cell carcinoma Hypertension Hypovolemic shock Lung nodule Morbid obesity with BMI of 40.0-44.9, adult Neuropathy Non-healing ulcer of right foot with fat layer exposed Non-pressure chronic ulcer of other part of right foot with necrosis of muscle Obesity hypoventilation syndrome Obstructive sleep apnea non compliant with home bipap/cpap Osteomyelitis Osteomyelitis Pneumonia due to 2019-nCoV (~07/2020) Pre-ulcerative calluses PVD (peripheral vascular disease) Renal cell carcinoma History bilateral renal cell carcinoma 2007 then recurrence on the contralateral side 2011. No recurrence for long-term follow-up with some suspicion on CT scan April 2020. Restrictive lung disease Type 2 diabetes mellitus Type 2 diabetes mellitus with diabetic polyneuropathy 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 Ulcer of sacral region, stage 1 Urinary retention Vitamin D deficiency Xerosis of skin Surgical History H/O partial nephrectomy bilateral H/O wisdom tooth extraction History of cataract surgery Hx of lymph node excision Status post below-knee amputation of left lower extremity Family History Father , at age 65 Diabetes Cancer Metastatic prostate cancer to liver Mother , at age 72 Diabetes Grandfather Diabetes Cancer Other Anemia Hyperlipidemia Social History Smoking and tobacco status: never smoked Second hand smoke exposure: Yes Smoking risk assessment/counseling performed?: Yes Alcohol intake: current Alcohol intake frequency: holidays/special occasions only Substance/Drug Use: never Lives independently: Yes Household members: spouse Housing: House Marital status: service: No Current occupational status: retired Pets and animals: Yes Do you think of yourself as: Straight/Heterosexual Current gender identity: Male Vitals/I&O/Wt Last Vital Signs Temp 97.7 F 05/07/23 02:28 Pulse 79 05/07/23 04:35 Resp 18 05/07/23 04:35 BP 91/4 05/07/23 03:53 Pulse Ox 96 05/07/23 04:35 O2 Del Method Nasal Cannula 05/07/23 04:35 O2 Flow Rate 3 05/07/23 04:35 Weight last 48 hrs Weight 117.934 kg Physical Exam Const: COMMON NORMALS: no acute distress and patient oriented x3 GENERAL APPEARANCE: cooperative, well kempt and well developed HENMT: COMMON NORMALS: normocephalic HEAD & SCALP: normocephalic FACE & SINUS: normal facial exam NOSE: Normal external nose present Eye: COMMON NORMALS: Equal, round and reactive pupils present, EOMs intact bilaterally, conjunctivae normal and no scleral icterus CONJUNCTIVA: Yes conjunctivae normal PUPIL: Yes Equal, round and reactive pupils present Neck/C-Spine: COMMON NORMALS: full ROM, no lymphadenopathy, no JVD, Thyroid normal and No carotid bruits THYROID: Thyroid normal Lymph: LYMPHATIC: no lymphadenopathy noted Chest: COMMONS NORMALS: normal inspection of the chest Resp: COMMON NORMALS: normal respiratory effort, No retractions and No use of accessory muscles AUSCULTATION: crackles Cardio: COMMON NORMALS: regular rate, regular rhythm, S1 normal heart sound present, S2 normal heart sound present, No murmurs present (Cardio) and Peripheral pulses 2+ throughout RATE: regular rate RHYTHM: regular rhythm HEART SOUNDS: S1 normal heart sound present and S2 normal heart sound present PERIPHERAL PULSES: Peripheral pulses 2+ throughout GI: OTHER: Abdomen is soft, distended, good bowel sounds, no guarding, no rebound, no rigidity, does have diffuse abdominal tenderness, abdomen distended, has a umbilical hernia reducible, no pain on palpation : BLADDER/KIDNEY EXAM: Yes no CVA tenderness Back/Pelvis: COMMON NORMALS: no CVA tenderness Extremity: NARRATIVE EXTREMITY EXAM: Left below-knee amputation, right montero, superficial diabetic ulcers, largest measuring 1 x 1 cm, Neuro: COMMON NORMALS: patient oriented x3, CN's II-XII intact bilaterally, moves all extremities and no focal motor deficits Psych: COMMON NORMALS: mental status grossly normal, Normal thought process present, cooperative and speech normal APPEARANCE: Yes well kempt SPEECH: Yes normal speech THOUGHT PROCESS: Normal thought process present Skin: COMMON NORMALS: turgor normal and no jaundice GENERAL SKIN EXAM: turgor normal Data 05/07/23 02:36 05/07/23 02:36 A&P Assessment and plan (1) Acute and chronic respiratory failure with hypoxia: (2) Acute hyperkalemia: (3) Ascites: (4) End-stage renal disease on hemodialysis: (5) History of left below knee amputation: (6) 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, limited to breakdown of skin: (7) Pulmonary edema: Qualifiers: Chronicity: acute Qualified Code(s): J81.0 - Acute pulmonary edema (8) Fluid overload: (9) Uremia: Plan Acute hyperkalemia -Has received insulin, D50, bicarb, albuterol, calcium gluconate, will receive Lasix in the emergency room -Nephrology has been consulted, for urgent dialysis -No chest pain, no palpitations, no acute ST-T wave changes on EKG Fluid overload, systolic CHF exacerbation, pulmonary edema -We will give 1 dose of IV Lasix -Nephrology consulted for urgent dialysis Uremia, secondary to missed dialysis Abdominal ascites, ultrasound paracentesis Diabetic ulcers, wound care Acute on chronic anemia, monitor Full code We will start Lovenox for DVT phylaxis in the evening time after paracentesis Attestations Medical Necessity Statement*: Patient requires hospitalization, inpatient, greater than 2 midnights due to hyperkalemia, fluid overload, end-stage renal disease, abdominal distention, requiring urgent dialysis, management hyperkalemia, paracentesis Diagnoses Acute and chronic respiratory failure with hypoxia J96.21 Acute hyperkalemia E87.5 Ascites R18.8 End-stage renal disease on hemodialysis N18.6; Z99.2 History of left below knee amputation Z89.512 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, limited to breakdown of skin E11.622; L97.301 Pulmonary edema J81.0 Chronicity: acute Fluid overload E87.70 Uremia N19
[2023-05-07] MEDS: oxyCODONE-APAP 5-325 mg Tablet 1 TAB PO (06:04)
[2023-05-07] MEDS: FUROsemide 10 mg/mL SDV 4mL 40 MG IVP (06:06)
[2023-05-07 06:29] LABS: C Reactive Protein 62.4 mg/L (0.0-4.9)
[2023-05-07 06:35] LABS: Troponin(5th) Baseline 564 ng/L (0-15)
[2023-05-07 06:36] LABS: Procalcitonin 0.48 ng/mL (0-0.5)
--- NOTE | 2023-05-07 06:47 | PC.NURSE ---
critical baseline trop called, physician notified, no new orders.
--- NOTE | 2023-05-07 06:52 | USCV_ITS ---
Rod Akil Age: 53 Gender: M : 1970 Exam Date: 05/07/2023 13:46 Ordering Phys: Julio C Bal MD Technologist: Pete Parker Exam Location: [facility] [place] Indication: chest pain BP: 99 / 63 HR: 93 Rhythm: Sinus Technical Quality: Adequate MEASUREMENTS (Male / Female) Normal Values 2D ECHO LV Diastolic Diameter PLAX 3.7 cm 4.2 - 5.9 / 3.9 - 5.3 cm LV Systolic Diameter PLAX 2.7 cm IVS Diastolic Thickness 1.7 cm 0.6 - 1.0 / 0.6 - 0.9 cm IVS Systolic Thickness 1.8 cm LVPW Diastolic Thickness 1.8 cm 0.6 - 1.0 / 0.6 - 0.9 cm LVPW Systolic Thickness 1.5 cm LVOT Diameter 2.1 cm LV Ejection Fraction 2D Teich 29.1 % LV Ejection Fraction MOD 2C 77.2 % LV Ejection Fraction 2C AL 77.4 % LA Diameter 5.2 cm M-MODE Aortic Annulus Diameter 3.9 cm LA Ao Ratio MM 1.3 MV E Point Septal Separation 0.7 cm FINDINGS Left Ventricle Right Ventricle Right Atrium Left Atrium Mitral Valve Aortic Valve Tricuspid Valve Pulmonic Valve Pericardium Aorta IVC CONCLUSIONS Technically limited quality echocardiogram because of poor ultrasonic windows. LV systolic function is normal. No regional wall motion abnormalities are seen. Compared to prior echocardiogram from 02/2023, no significant changes are seen in the LV systolic function Erik Arguelles MD (Electronically Signed) Final Date: 08 May 2023 09:34 S
[2023-05-07 07:05] LABS: Chol HDL Ratio 2.43 mg/dL (1.0-5.00); Cholesterol 90 mg/dL (0-200); HDL Cholesterol 37 mg/dL (60-100); LDL Cholesterol Calculated 26 mg/dL (50-129); Thyroid Stimulating Hormone 11.62 uIU/mL (0.27-4.20); Triglycerides 134 mg/dL (0-150)
[2023-05-07 07:08] LABS: Estmated Average Glucose 105; Hemoglobin A1C 5.3 % (4.0-6.0)
--- NOTE | 2023-05-07 07:29 | ECG_ITS ---
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 Measurements Intervals [place] Rate: 83 P: 61 AL: 196 QRS: 142 QRSD: 114 T: -7 QT: 385 QTc: 453 Interpretive Statements SINUS RHYTHM RIGHT AXIS DEVIATION [QRS AXIS > 100] LOW QRS VOLTAGE [QRS DEFLECTION < 0.5/1.0 mV IN LIMB/CHEST LEADS] RIGHT BUNDLE BRANCH BLOCK [120+ ms QRS DURATION, UPRIGHT V1, 40+ ms S IN I/aVL/V4/V5/V6] POSSIBLE ANTERIOR MYOCARDIAL INFARCTION , PROBABLY OLD [30 ms Q WAVE IN V3/V4, OR R < 0.2 mV IN V4] Compared to ECG 05/07/2023 02:47:25 No significant changes Electronically Signed On 05-07-2023 8:24:34 CDT by Erik Arguelles M.D. [id number]
[2023-05-07] MEDS: morphine 4 mg/mL SDV 1 mL 1 MG IVP ×2 (07:32→21:32)
[2023-05-07] MEDS: heparin drip 25,000 UNIT/500 ML PREMIX 38 UNIT IV (08:11)
[2023-05-07] MEDS: heparin 5,000 unit/mL INJ 1 mL IV (08:15)
[2023-05-07 08:20] LABS: Hepatitis B Core AB, Total Non-Reactive (Nonreactive); Hepatitis B Surface AB 49.7 (11.5-1000); Hepatitis B Surface Antigen Non-Reactive (Nonreactive)
--- NOTE | 2023-05-07 08:36 | PM.PN ---
Subjective Subjective: Patient reports no chest discomfort currently. He is short of breath. He reports he has a lot of pain, in his abdomen and scrotal area. He has not yet had dialysis. History and physical, and events of ER visit and admission were reviewed Medications: Reviewed: Yes Vitals/I&O/Wt Last Vital Signs Temp 97.7 F 05/07/23 02:28 Pulse 80 05/07/23 05:58 Resp 29 H 05/07/23 07:32 BP 95/64 05/07/23 05:58 Pulse Ox 92 05/07/23 08:31 O2 Del Method Nasal Cannula 05/07/23 08:31 O2 Flow Rate 4 05/07/23 08:31 Weight last 48 hrs Weight 117.934 kg Physical Exam Narrative: Rates a conversive and knowledgeable patient, reporting he has lower abdominal and penile area pain. Neck is supple Cardiovascular: Tachycardia, 2 or 6 systolic murmur heard best at the left upper sternal border Lungs clear but with markedly diminished breath sounds bilaterally Abdomen is distended, tympanic, with fluid wave. Umbilical hernia is noted that is protruded. scrotal edema is noted Extremities. Left shows a below the knee amputation with dressing. Right demonstrate some ulcerations noted over his anterior montero. Distal cap refill around 1 to 2 seconds. Pulses difficult to feel. Data 05/07/23 02:36 05/07/23 02:36 Micro: Microbiology 05/07/23 05:50 Blood Culture - Preliminary Blood SPECIMEN COLLECTED 05/07/23 02:36 Blood Culture - Preliminary Blood SPECIMEN COLLECTED A&P Assessment and plan (1) Acute hyperkalemia: Undergoing dialysis shortly He has evidence of intraventricular conduction delay He missed dialysis on Sunday CBC, CMP tomorrow (2) Ascites: Will arrange for abdominal paracentesis, Studies have been ordered, on ascitic fluid following procedure. This will rule out SBP though at this time it is not suspected. (3) Anemia: Continue to follow closely. Likely secondary to his chronic kidney disease. (4) Anasarca: Patient with significant anasarca with evidence of fluid overload as well as ascites Briefly visited with him regarding limiting fluid intake. We will approach this again when he is in less discomfort. Paracentesis planned today, after he can be safely taken off heparin. (5) Elevated troponin: He has significant elevation in his troponin, likely secondary to his chronic kidney disease and missed dialysis. I am awaiting his second troponin, to determine if a significant delta is present. If it is not, heparin will be discontinued to facilitate paracentesis. (6) Type 2 diabetes mellitus: On no insulin products currently. Placed on renal dialysis diet, low potassium (7) Chest pain: Patient reports chest discomfort last week during dialysis. Continue aspirin, statin. Consider nuclear stress testing. Last nuclear stress test was approximately 3 years ago and normal with the exception of low EF. Last echocardiogram demonstrates recovery of ejection fraction, with normal EF around 55%. Repeat is ordered during this hospital stay which is pending. (8) Abnormal TSH: TSH is high. Consideration for subclinical hypothyroidism versus euthyroid sick. Suggest repeat of TSH, in approximately 4 weeks. Plan Multiple other medical problems as outlined in past medical history Code currently Heparin will suffice for DVT prophylaxis Attestations Medical Necessity Statement*: Needs continued hospitalization for anasarca, severe hyperkalemia Diagnoses Acute hyperkalemia E87.5 Ascites R18.8 Anemia D64.9 Anasarca R60.1 Elevated troponin R79.89 Type 2 diabetes mellitus E11.9 Chest pain R07.9 Abnormal TSH R79.89 Time Spent (min) 23
[2023-05-07] MEDS: morphine 4 mg/mL SDV 1 mL 2 MG IVP ×2 (08:37→13:26)
--- NOTE | 2023-05-07 08:43 | PC.NURSE ---
Patient left [facility] to go to dialysis at 0845.
--- NOTE | 2023-05-07 09:08 | P.CONIM_ITS ---
Providers/Reason For Consult Consulting Physician/Specialty*: [facility]/NEPHROLOGY Reason for Consult*: ESRD Attending Physician: Darren Vela MD Primary Care Provider: Sulma Wetzel MD History of Present Illness History of Present Illness Akil Velasco is a 53 year old male Patient is a 53-year-old male with past medical history of end-stage renal disease on dialysis, liver cirrhosis with recurrent ascites, history of CHF left BKA, diabetes presented to the emergency department due to shortness of breath. He missed dialysis on Sunday and also complains of worsening lower extremity edema and abdominal distention. In the emergency department lab data was stable has hyperkalemia with a potassium of 7 and hemoglobin of 8.0. Potassium was medically treated in the emergency department Medications/Allergies Home Medications Medication Instructions Recorded Confirmed Last Taken Type Wheel Chair #1 ea 08/18/21 04/27/23 04/27/23 Rx ropinirole 0.25 mg tablet 0.25 mg PO BEDTIME PRN Restless 08/22/21 04/30/23 04/30/23 History Leg(S) sodium zirconium cyclosilicate 5 See Rx Instructions .Route .COMPLEX 08/22/21 04/30/23 04/29/23 History gram oral powder packet (Lokelma) cholecalciferol (vitamin D3) 25 25 mcg PO QAM 04/11/22 04/30/23 04/29/23 History mcg (1,000 unit) tablet (Vitamin D3) ondansetron HCl 4 mg tablet 4 mg PO Q4H PRN Nausea 04/11/22 04/27/23 04/27/23 History Compression Stockings #1 ea 04/12/22 04/27/23 04/27/23 Rx brevig mission boot modification #1 ea 07/17/22 04/27/23 04/27/23 Rx oxycodone 5 mg tablet 5 mg PO Q6H PRN Pain 08/16/22 04/30/23 04/29/23 History sevelamer carbonate 800 mg tablet See Rx Instructions .Route .COMPLEX 09/18/22 04/30/23 04/29/23 History B-complex with vitamin C 1 cap PO DAILY 10/16/22 04/30/23 04/29/23 History albuterol sulfate 90 mcg/actuation 2 puff inhalation Q6H PRN 10/16/22 04/30/23 04/29/23 History aerosol inhaler Shortness Of Breath bisacodyl 10 mg rectal suppository 10 mg DE DAILY PRN Constipation 10/16/22 04/30/23 04/29/23 History (Dulcolax (bisacodyl)) brexpiprazole 0.25 mg tablet 0.25 mg PO DAILY 10/16/22 04/30/23 04/29/23 History diphenhydramine HCl 25 mg tablet 25 mg PO DAILY PRN itching 10/16/22 04/30/23 03/28/23 History (Benadryl Allergy) famotidine 10 mg tablet 10 mg PO DAILY 10/16/22 04/30/23 04/10/23 History folic acid 1 mg tablet 1 mg PO DAILY 10/16/22 04/30/23 04/10/23 History hydroxyzine HCl 25 mg tablet 25 mg PO Q6H PRN Anxiety 10/16/22 04/27/23 04/02/23 History pantoprazole 40 mg tablet,delayed 40 mg PO DAILY 10/16/22 04/27/23 04/16/23 History release polyethylene glycol 3350 17 17 g PO BID 10/16/22 04/30/23 04/29/23 History gram/dose oral powder (Miralax) sodium phosphates 19 gram-7 118 ml DE DAILY PRN Constipation 10/16/22 04/30/23 03/28/23 History gram/118 mL enema (Fleet Enema) venlafaxine 75 mg capsule,extended 75 mg PO DAILY 10/16/22 04/30/23 04/29/23 History release 24 hr (Effexor XR) Prevalon boot #1 ea 11/21/22 04/27/23 04/27/23 Rx amino acids-protein hydrolysate 17 30 ea PO BID 11/21/22 04/30/23 04/10/23 History gram-100 kcal/30 mL oral liquid (Pro-Stat AWC) atorvastatin 40 mg tablet 40 mg PO DAILY 11/21/22 04/30/23 04/29/23 History cilostazol 50 mg tablet 50 mg PO BID 11/21/22 04/30/23 04/29/23 History trazodone 100 mg tablet 100 mg PO BEDTIME 11/21/22 04/30/23 04/29/23 History diabetic shoes with 3 heat molded #1 ea 12/15/22 04/27/23 04/27/23 Rx insoles gabapentin 300 mg capsule 300 mg PO TID 01/02/23 04/30/23 04/29/23 History Allergies Allergy/AdvReac Type Severity Reaction Status Date / Time linezolid [From Zyvox] Allergy tendonitis Verified 05/07/23 02:33 ciprofloxacin [From Cipro] AdvReac Severe Tendonitis Verified 05/07/23 02:33 Current Medications Generic Name Dose Route Start Last Admin Trade Name Freq PRN Reason Stop Dose Admin Heparin Sodium (Porcine) 0 unit 05/07/23 06:52 05/07/23 08:15 Heparin 5,000 Unit/Ml Inj 1 Ml IV 6,800 unit PRN PRN Administration Heparin weight-base protocol Protocol Heparin Sodium/Sodium Chloride 25,000 unit in 500 mls @ 0 mls/hr 05/07/23 07:00 05/07/23 08:11 Heparin Drip IV 16.11 unit/kg/hr .Q0M [place] 38 mls/hr Administration Protocol Per Protocol Morphine Sulfate 2 mg 05/07/23 08:33 05/07/23 08:37 Morphine 4 Mg/Ml Sdv 1 Ml IVP 2 mg Q4H PRN Administration SEVERE PAIN PFSH Acute PFSH: Medical History Accelerated hypertension Acquired equinovarus deformity of left foot Anemia Anemia of chronic disease BMI 50.0-59.9, adult Cardiac arrest (~07/2020) when had covid Cellulitis Cellulitis CHF (congestive heart failure), NYHA class III Chronic osteomyelitis of right foot Chronic respiratory failure with hypoxia and hypercapnia Chronic ulcer of left foot with fat layer exposed Chronic venous insufficiency COPD (chronic obstructive pulmonary disease) Diabetes Diabetic foot ulcers 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, limited to br eakdown of skin ESRD (end stage renal disease) on dialysis First degree heart block Foot osteomyelitis, left Foot osteomyelitis, right Fracture of fifth metatarsal bone of left foot Fracture of fourth metatarsal bone of left foot Fracture, thoracic vertebra T7-T8 Gas gangrene History of left below knee amputation History of renal cell carcinoma Hypertension Hypovolemic shock Lung nodule Morbid obesity with BMI of 40.0-44.9, adult Neuropathy Non-healing ulcer of right foot with fat layer exposed Non-pressure chronic ulcer of other part of right foot with necrosis of muscle Obesity hypoventilation syndrome Obstructive sleep apnea non compliant with home bipap/cpap Osteomyelitis Osteomyelitis Pneumonia due to 2019-nCoV (~07/2020) Pre-ulcerative calluses PVD (peripheral vascular disease) Renal cell carcinoma History bilateral renal cell carcinoma 2007 then recurrence on the contralateral side 2011. No recurrence for long-term follow-up with some suspicion on CT scan April 2020. Restrictive lung disease Type 2 diabetes mellitus Type 2 diabetes mellitus with diabetic polyneuropathy 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 Ulcer of sacral region, stage 1 Urinary retention Vitamin D deficiency Xerosis of skin Surgical History H/O partial nephrectomy bilateral H/O wisdom tooth extraction History of cataract surgery Hx of lymph node excision Status post below-knee amputation of left lower extremity Family History Father , at age 65 Diabetes Cancer Metastatic prostate cancer to liver Mother , at age 72 Diabetes Grandfather Diabetes Cancer Other Anemia Hyperlipidemia Social History Smoking and tobacco status: never smoked Second hand smoke exposure: Yes Smoking risk assessment/counseling performed?: Yes Alcohol intake: current Alcohol intake frequency: holidays/special occasions only Substance/Drug Use: never Lives independently: Yes Household members: spouse Housing: House Marital status: service: No Current occupational status: retired Pets and animals: Yes Do you think of yourself as: Straight/Heterosexual Current gender identity: Male Vitals/I&O/Wt Last Vital Signs Temp 97.7 F 05/07/23 02:28 Pulse 80 05/07/23 05:58 Resp 29 H 05/07/23 07:32 BP 95/64 05/07/23 05:58 Pulse Ox 92 05/07/23 08:31 O2 Del Method Nasal Cannula 05/07/23 08:31 O2 Flow Rate 4 05/07/23 08:31 Weight last 48 hrs Weight 117.934 kg Physical Exam Narrative: awake , alert HEENT mayo s1s2 rrr PER REPORT CRACKLES GARRY PER REPORT NO EDEMA Data 05/07/23 02:36 05/07/23 02:36 Micro: Microbiology 05/07/23 05:50 Blood Culture - Preliminary Blood SPECIMEN COLLECTED 05/07/23 02:36 Blood Culture - Preliminary Blood SPECIMEN COLLECTED A&P Assessment and plan (1) End-stage renal disease on hemodialysis: Plan 1. End-stage renal disease on dialysis per TTS schedule, missed HD on Sunday and now presented with hyperkalemia and volume overload. Plan for emergent hemodialysis today. Ultrafiltration as tolerated He is over his DW , will repeat HD in Am 2. Hyperkalemia: HD as above on low potassium diet 3. Acute on chronic respiratory failure, multifactorial, volume overload, ultrafiltration as tolerated with HD. 4. Anemia: ALBERTO ordered. 5. Liver cirrhosis with ascites and recurrent paracentesis, 6. History of diabetes with diabetic ulcers Patient evaluated using audiovisual cart. Time spent 40 minutes Consult Attestations Medical Necessity Statement: per medicine team Coding Level of Care Code Acute Code for g Fwd Diagnoses End-stage renal disease on hemodialysis N18.6; Z99.2
[2023-05-07 09:10] LABS: Troponin 5 2HR 550.3 ng/L (0-15); Troponin 5 2HR Delta -13.7 ABS# (0-10)
--- NOTE | 2023-05-07 09:17 | PC.HD ---
After treatment initiation, benefits clerk saw patient utilizing telenephrology iPad. Per benefits clerk, treatment orders changed from 3.0 to 3.5 hours as tolerated, and UF goal was increased to 3L as tolerated. Adjustments to prescription were made and treatment continues without difficulty.
--- NOTE | 2023-05-07 09:24 | PC.NURSE ---
Provider notified of patients troponin value, Provider ordered to stop heparin drip.
[2023-05-07] MEDS: albumin 12.5 GM/50 ML VIAL IV ×2 (10:36→10:38)
--- NOTE | 2023-05-07 11:29 | ECG_ITS ---
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 Measurements Intervals [place] Rate: 92 P: 58 MO: 207 QRS: 138 QRSD: 96 T: 22 QT: 368 QTc: 457 Interpretive Statements SINUS RHYTHM WITH SINUS ARRHYTHMIA INCOMPLETE RIGHT BUNDLE BRANCH BLOCK [90+ ms QRS DURATION, TERMINAL R IN V1/V2, 40+ ms S IN I/aVL/V4/V5/V6] POSSIBLE RIGHT VENTRICULAR HYPERTROPHY [SOME/ALL OF: PROMINENT R IN V1, LATE TRANSITION, RAD, JEROME, SSS] Compared to ECG 05/07/2023 07:16:20 Incomplete right bundle-branch block now present Right-axis deviation no longer present Right bundle-branch block no longer present Myocardial infarct finding no longer present Electronically Signed On 05-07-2023 14:27:46 CDT by Erik Arguelles M.D. [id number]
[2023-05-07 12:31] LABS: Troponin 5 6HR 609.7 ng/L (0-15); Troponin 5 6HR Delta 45.7 ng/L (0-12)
[2023-05-07] MEDS: epoetin alfa 1000 Unit/0.05 mL (ESRD) 20000 UNIT SUBCUT (12:32)
[2023-05-07] MEDS: folic acid 1 mg Tablet PO (13:27)
[2023-05-07] MEDS: aspirin 81 mg EC Tablet PO (13:27)
[2023-05-07] MEDS: cilostazol 100 mg Tablet 50 MG PO ×2 (13:28→17:59)
[2023-05-07] MEDS: venlafaxine ER (24HR) 75 mg Capsule PO (13:28)
[2023-05-07] MEDS: gabapentin 300 mg Capsule PO ×3 (13:28→20:59)
[2023-05-07] MEDS: atorvastatin 40 mg Tablet PO (13:28)
[2023-05-07] MEDS: pantoprazole DR 40 mg Tablet PO (13:29)
[2023-05-07] MEDS: sevelamer 800 mg Tablet 4000 MG PO ×2 (13:34→18:01)
[2023-05-07] MEDS: oxyCODONE 5 mg IR Tab/Cap PO (15:55)
[2023-05-07 16:00] LABS: Apprearance, Body Fluid CLOUDY; Color, Body Fluid PALE YELLOW; PATH Referral YES
[2023-05-07 16:02] LABS: Cyto Order Verification No Order
[2023-05-07 16:13] LABS: Body Fluid Polynuclear #Cells 0.034; Body Fluid WBC 310 /uL; Monocytes # Body Fluid 0.276
[2023-05-07 16:18] LABS: Fluid Alkaline Phos. 44 IU/L
[2023-05-07 16:19] LABS: Albumin Body Fluid 1.7 g/dL; Amylase Body Fluid 13 U/L; Cholesterol Body Fluid 31 mg/dL (0-200); Fluid Laterality ASCITIES; LDH Body Fluid 123 U/L; Total Protein Body Fluid 3.7 g/dL; Triglycerides Body Fluid 114 mg/dL (0-150); Uric Acid Body Fluid 6 mg/dL
--- NOTE | 2023-05-07 16:50 | CTR_ITS ---
PROCEDURE INFORMATION: Exam: CT Abdomen And Pelvis With Contrast Exam date and time: 05/07/2023 5:21 PM Age: 53 years old Clinical indication: Abdominal pain; Localized; Lower; Prior surgery; Surgery date: 6+ months; Surgery type: Partial nephrectomy; Additional info: Pelvic pain TECHNIQUE: Imaging protocol: Computed tomography of the abdomen and pelvis with contrast. Radiation optimization: All CT scans at this facility use at least one of these dose optimization techniques: automated exposure control; mA and/or kV adjustment per patient size (includes targeted exams where dose is matched to clinical indication); or iterative reconstruction. Contrast material: OMNI 350; Contrast volume: 100 ml; Contrast route: INTRAVENOUS (IV); REPORTING DATA: Count of CT and Cardiac NM exams in prior 12 months: This patient has received 2 known CTs and 0 known cardiac nuclear medicine studies in the 12 months prior to the current study. COMPARISON: CT abdomen pelvis w con* [id number] 03/22/2022 4:57 PM RADIATION DOSE METRICS: Total DLP (mGy-cm): 1406.43 FINDINGS: Lungs: Bibasilar atelectasis. Heart: Cardiomegaly. Coronary arteries: Coronary artery atherosclerotic calcifications. Liver: Hepatic steatosis. Gallbladder and bile ducts: Normal. No calcified stones. No ductal dilation. Pancreas: Normal. No ductal dilation. Spleen: Normal. No splenomegaly. Adrenal glands: Normal. No mass. Kidneys and ureters: Bilateral chronic renal atrophy. Stomach and bowel: Constipation. Diverticulosis without diverticulitis. Appendix: No evidence of appendicitis. Intraperitoneal space: Moderate to large amount of abdominal ascites. Vasculature: Unremarkable. No abdominal aortic aneurysm. Lymph nodes: Scattered enlarged periaortic lymph nodes measuring up to 17 mm short axis, similar to prior exam, nonspecific. Urinary bladder: Unremarkable as visualized. Reproductive: Unremarkable as visualized. Bones/joints: Spleen enlarged to 17 cm. L1 vertebral body chronic appearing compression fracture without retropulsion of bony fragments, similar to prior exam. Soft tissues: Anasarca. CT/CT abdomen pelvis w con* [id number] IMPRESSION: 1. Negative for focal acute inflammatory process in the abdomen or pelvis. 2. Anasarca. 3. Coronary artery atherosclerotic calcifications. 4. Cardiomegaly. 5. Bibasilar atelectasis. 6. Hepatic steatosis. 7. Spleen enlarged to 17 cm. 8. Bilateral chronic renal atrophy. 9. Moderate to large amount of abdominal ascites. 10. Constipation. 11. Diverticulosis without diverticulitis. 12. L1 vertebral body chronic appearing compression fracture without retropulsion of bony fragments, similar to prior exam. 13. Scattered enlarged periaortic lymph nodes measuring up to 17 mm short axis, similar to prior exam, nonspecific.
[2023-05-07] MEDS: midodrine 5 mg TABLET PO (16:54)
[2023-05-07] MEDS: iohexol 350 mg/mL 500 mL Btl (per mL) IV (17:37)
[2023-05-07] MEDS: trazodone 100 mg Tablet PO (20:59)
[2023-05-07] MEDS: acetaminophen 325 mg Tablet 650 MG PO (20:59)
[2023-05-07] MEDS: midodrine 5 mg TABLET 2.5 MG PO (21:00)
[2023-05-07] MEDS: ondansetron 2 mg/ML SDV 2 mL 4 MG IVP (21:32)
--- NOTE | 2023-05-07 23:31 | PC.NURSE ---
Patient was in extreme pain with BP at 89/49, DR was notified and came to see patient and gave verbal order for 1mg morphine IVP.
[2023-05-08] VITALS (57 sets, daily range): BP systolic 63–102; BP diastolic 42–70; PULSE 80–98; RESP 12–35; TEMP 36.2–37.2; O2SAT 75–100
[2023-05-08 04:47] LABS: Basophils % 0.5 %; Eosinophils # 0.1 10^3/uL (0.0-0.8); Eosinophils % 1.3 %; Hematocrit 25.7 % (37-53); Lymphocytes # 0.5 10^3/uL (0.8-4.8); Lymphocytes % 6.3 %; Mean Corpuscular HGB Conc 29.2 g/dL (30-55); Mean Corpuscular Hemoglobin 24.7 pg (27-33); Mean Corpuscular Volume 84.5 fl (82-101); Mean Platelet Volume 10.6 fL (7.4-10.4); Monocytes # 0.9 10^3/uL (0.2-0.9); Monocytes % 11.2 %; Neutrophils # 6.23 10^3/uL (1.8-7.7); Neutrophils % 80.3 %; Nucleated Red Blood Cells % 0 %; Platelet Count 121 10^3/cmm (157-399); Red Blood Count 3.04 10^6/uL (3.85-5.65); Red Cell Distribution Width 16.7 % (12.1-15.1); White Blood Count 7.76 10^3/uL (3.29-11.43)
[2023-05-08 05:04] LABS: Alanine Aminotransferase 12 U/L (0-41); Albumin Level 2.7 g/dL (3.5-5.2); Alkaline Phosphatase 67 U/L (40-130); Anion Gap 22.2 (5-19); Aspartate Amino Transferase 25 U/L (0-40); Blood Urea Nitrogen 71 mg/dL (6-20); Calcium 7.7 mg/dL (8.5-10.5); Carbon Dioxide 25 mmol/L (22-29); Chloride 94 mmol/L (98-107); Globulin 3.6 g/dL (1.3-4.6); Glomerular Filtration Rate 8.7 mL/min (90-130); Glucose 92 mg/dL (65-115); Osmolality Calculated 300 mOsm/kg (285-295); Potassium 6.2 mmol/L (3.5-5.1); Sodium 135 mmol/L (136-145); Total Bilirubin 0.4 mg/dL (0.15-1.2); Total Protein 6.3 g/dL (6.6-8.7)
--- NOTE | 2023-05-08 07:50 | PC.NURSE ---
0730 On assessment, patient complained of penis pain and said yes if he needed pain med for it, he said yes. I obtained Morphine medication for the pain and took it down to room and he is sleeping, retook his blood pressure, patient woke up and I told him I had his pain med, he fell right back to sleep and blood pressure still 89/57. I will hold pain med for now and see how he does.
--- NOTE | 2023-05-08 08:43 | P.PN_ITS ---
Subjective Subjective: Today, patient complains of significant pain in his penis and scrotum, which he states he has never had before. He reports that pain medication does help provide relief. He denies pain to his abdomen and has no other concerns at this time. Medications: Reviewed: Yes Vitals/I&O/Wt Last Vital Signs Temp 97.7 F 05/08/23 04:28 Pulse 90 05/08/23 08:00 Resp 16 05/08/23 08:00 BP 93/57 05/08/23 07:19 Pulse Ox 95 05/08/23 07:19 O2 Del Method Room Air 05/08/23 07:52 O2 Flow Rate 97 05/08/23 07:52 FiO2 30 05/07/23 20:00 05/07/23 05/08/23 05/08/23 22:59 06:59 14:59 Intake Total 450 / 546.867 240 / 786.867 Output Total 3400 / 3400 Balance -2950 / -2853.133 240 / -2613.133 Weight last 48 hrs Weight 135.2 kg Weight 117.934 kg Physical Exam Narrative: General: patient alert, cooperative, and conversant. Primarily concerned with his scrotal/penile pain. Neck is supple Cardiovascular: normal rate and rhythm, 2 or 6 systolic murmur heard best at the left upper sternal border Lungs clear but with markedly diminished breath sounds bilaterally Abdomen less distended. Still with thickened skin.. Umbilical hernia is noted that is less protruded, and caput medusae are present. scrotal erythema and edema is noted throughout, but especially pronounced at the base. Penis is inverted with ulceration present superior to the base. Few pressure sores are noted in buttock region. Extremities. Left shows a below the knee amputation. Right demonstrate some ulcerations noted over his anterior montero. Distal cap refill around 1 to 2 seconds. Pulses difficult to feel in upper and lower extremity. Data 05/08/23 04:31 05/08/23 04:31 Micro: Microbiology 05/07/23 05:50 Blood Culture - Preliminary Blood NEGATIVE TO DATE 05/07/23 02:36 Blood Culture - Preliminary Blood NEGATIVE TO DATE A&P Assessment and plan (1) Acute hyperkalemia: Dialysis scheduled for today Still with significant elevation of potassium CBC, CMP tomorrow (2) Ascites: Paracentesis performed yesterday removed 8 L of fluid. Abdominal CT showed dimished fluid after procedure and is not concerning for infection at this time. SBP ruled out at this time based on fluid studies. (3) Anemia: Pt H&H decreased following dialysis. Will not pursue blood transfusion at this time. Continue to follow closely. Likely secondary to his chronic kidney disease. (4) Anasarca: Patient with significant anasarca with evidence of fluid overload as well as ascites. Paracentesis performed yesterday able to remove 8 L of fluid. Dialysis removed 2.[address] abdomen/pelvis after paracentesis continued to show anasarca and ascites, but less Pt fluid intake being limited to prevent further fluid overload. (5) Elevated troponin: Pt had troponin delta elevation, most likely secondary to chronic kidney disease. Consider outpatient nuclear stress testing Continue aspirin and statin (6) Type 2 diabetes mellitus: On no insulin products currently. Placed on renal dialysis diet, low potassium (7) Chest pain: Patient denies chest pain this morning. Continue aspirin, statin. Consider nuclear stress testing. Last nuclear stress test was approximately 3 years ago and normal with the exception of low EF. Last echocardiogram demonstrates recovery of ejection fraction, with normal EF around 55%. Repeat echocardiogram is pending, but taken. If it shows any significant change from previous could consider doing stress test inpatient. (8) Abnormal TSH: TSH is high. Consideration for subclinical hypothyroidism versus euthyroid sick. Suggest repeat of TSH, in approximately 4 weeks. Plan Penile pain CT abdomen/pelvis was performed yesterday due to ongoing penile/scrotal pain to assess for inflammation/infectious process. Results were negative for focal acute inflammatory process in abdomen or pelvis Scrotal cellulitis. I have significant concerns with this regarding erythema of the scrotum. Will start Zosyn and vancomycin to treat empirically for any underlying infection of scrotum and use conservative measures, such as scrotal elevation to reduce scrotal swelling. Hypotension Started midodrine due to continued low BP. Multiple other medical problems as outlined in past medical history Full Code currently Heparin will suffice for DVT prophylaxis Attestations Medical Necessity Statement*: Needs continued hospitalization for uremia, fluid overload, concern of scrotal cellulitis Coding Level of Care Code 52168 Moderate MDM includes number and complexity of problems actively addressed during encounter and amount and/or complexity of data reviewed/ordered as do cumented Diagnoses Acute hyperkalemia E87.5 Ascites R18.8 Anemia D64.9 Anasarca R60.1 Elevated troponin R79.89 Type 2 diabetes mellitus E11.9 Chest pain R07.9 Abnormal TSH R79.89 Time Spent (min) 31
[2023-05-08] MEDS: venlafaxine ER (24HR) 75 mg Capsule PO (09:00)
[2023-05-08] MEDS: pantoprazole DR 40 mg Tablet PO (09:01)
[2023-05-08] MEDS: aspirin 81 mg EC Tablet PO (09:01)
[2023-05-08] MEDS: gabapentin 300 mg Capsule PO ×3 (09:01→20:16)
[2023-05-08] MEDS: atorvastatin 40 mg Tablet 80 MG PO (09:02)
[2023-05-08] MEDS: folic acid 1 mg Tablet PO (09:02)
[2023-05-08] MEDS: cilostazol 100 mg Tablet 50 MG PO (09:02)
[2023-05-08] MEDS: midodrine 5 mg TABLET PO ×3 (09:03→20:17)
[2023-05-08] MEDS: piperacillin-tazobactam 3.375 GM in sodium chloride 0.9% (plus) 50 ML IV ×2 (09:06→21:14)
[2023-05-08] MEDS: sevelamer 800 mg Tablet 4000 MG PO ×3 (09:15→18:24)
[2023-05-08] MEDS: morphine 4 mg/mL SDV 1 mL 1 MG IVP (09:17)
--- NOTE | 2023-05-08 09:47 | PC.CHAP ---
Pastoral Care Encounter/Spiritual Assessment Type of Contact [] Declined out of school hours care worker visit [] Patient/Family/Request visit [] Outpatient visit [] Follow-up visit [] Physician referral [] Code/Alert [x] Routine visit [] Staff referral [] Actively dying [] Patient sleeping [] Family support [] [] Out of room [] Palliative care [] [] Receiving care in room [] Pre-surgical visit [] Trauma [] Long length of stay [] ICU visit [] Other: Relational/Emotional Strength [x] Patient feels connected with others/family/visitors/staff [] Distress [] Loneliness/isolation [] Abandonment Spirituality of Patient [x] Person of Lizabeth [] Attends Gnosticism of their Lizabeth [x] Believes in Prayer [] Reads Bible or Orthodox materials [] There are Spiritual issues to be addressed Application Support Interventions [x] Prayer [x] Active listening [] Non-anxious presence [x] Spiritual/emotional support [] Crisis/trauma care [] Spiritual counseling [] Bereavement support [] Provided bereavement packet [] Provided Bible/devotional materials [] Provided toy/stuffed animal, coloring book to patient or family member [] Provided Communion [] Anointing/[place] [] Salvation [x] Completed spiritual assessment [] Other: Impact on Illness or Injury [] Angry [] Fearful [] Anxious [] Often cries [] Exhaustion [] Unable to work [] Unable to attend protestant [] Unable to walk/stand [] Unable to read [] Unable to drive [] Unable to eat/drink [] Unable to sleep [] Unable to be with family [] Patient intubated [] Other: Summary Time spent with patient 5 min
--- NOTE | 2023-05-08 10:32 | PC.NURSE ---
0940 Educating patient about new medication of Vancomycin, and he says no, because he has had a reaction of itching from it before and resulted in multiple sores from scratching on his arms. So I held the vancomycin. [address] Vela of patients concerns, Dr. Vela at bedside and spoke with patient about it and then patient ask to speak to Dr. Vela privately, so they spoke privately. 1000 Transfered patient to Dialysis in 274 on 2nd floor per bed with O2 at 2l n/c and Pippercillin infusing. Patient ask for an order for A & D ointment to his penis. [address] Vela, obtained order for A & D and placed order.
[2023-05-08] MEDS: albumin 12.5 GM/50 ML VIAL IV ×3 (10:57→12:25)
[2023-05-08] MEDS: epoetin alfa 1000 Unit/0.05 mL (non-esrd) 20000 UNIT SUBCUT (12:32)
--- NOTE | 2023-05-08 12:43 | ECG_ITS ---
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 Measurements Intervals [place] Rate: 101 P: 209 IN: 183 QRS: 39 QRSD: 101 T: 194 QT: 351 QTc: 455 Interpretive Statements SINUS TACHYCARDIA LOW QRS VOLTAGE IN PRECORDIAL LEADS [QRS DEFLECTION < 1.0 mV IN CHEST LEADS] INCOMPLETE RIGHT BUNDLE BRANCH BLOCK [90+ ms QRS DURATION, TERMINAL R IN V1/V2, 40+ ms S IN I/aVL/V4/V5/V6] LATERAL MYOCARDIAL INFARCTION , OF INDETERMINATE AGE [40+ ms Q WAVE AND/OR ST/T ABNORMALITY IN I/aVL/V5/V6] MODERATE T-WAVE ABNORMALITY, CONSIDER INFERIOR ISCHEMIA [-0.1+ mV T-WAVE IN II/aVF] Compared to ECG 05/07/2023 14:19:18 Low QRS voltage now present Myocardial infarct finding now present Atrial abnormality no longer present Electronically Signed On 05-08-2023 15:20:29 CDT by Erik Arguelles M.D. [id number]
--- NOTE | 2023-05-08 13:02 | PM.PN ---
Subjective Subjective: HD stopped due to sudden onset chest pain Medications: Reviewed: Yes Vitals/I&O/Wt Last Vital Signs Temp 97.2 F L 05/08/23 11:17 Pulse 88 05/08/23 11:17 Resp 18 05/08/23 11:17 BP 89/61 05/08/23 11:17 Pulse Ox 95 05/08/23 09:17 O2 Del Method Room Air 05/08/23 07:52 O2 Flow Rate 97 05/08/23 07:52 FiO2 30 05/07/23 20:00 05/07/23 05/08/23 05/08/23 22:59 06:59 14:59 Intake Total 450 / 546.867 240 / 786.867 82 / 82 Output Total 3400 / 3400 0 / 0 Balance -2950 / -2853.133 240 / -2613.133 82 / 82 Weight last 48 hrs Weight 135.2 kg Weight 117.934 kg Physical Exam Narrative: awake , alert HEENT mayo s1s2 rrr PER REPORT CRACKLES GARRY PER REPORT NO EDEMA Data 05/08/23 04:31 05/08/23 04:31 Micro: Microbiology 05/07/23 05:50 Blood Culture - Preliminary Blood NEGATIVE TO DATE 05/07/23 02:36 Blood Culture - Preliminary Blood NEGATIVE TO DATE A&P Assessment and plan (1) End-stage renal disease on hemodialysis: Plan 1. End-stage renal disease on dialysis per TTS schedule, couldnt tolerate HD today due to Chest pain , stopped after 2 hours of treatment 2. Hyperkalemia: HD as above on low potassium diet 3. Acute on chronic respiratory failure, multifactorial, v 4. Anemia: ALBERTO ordered. 5. Liver cirrhosis with ascites and recurrent paracentesis, 6. History of diabetes with diabetic ulcers 7. chest pain : work up pending Patient evaluated using audiovisual cart. Time spent 20 minutes Attestations Medical Necessity Statement*: per medicine team Coding Level of Care Code Acute Code for Chg Fwd Diagnoses End-stage renal disease on hemodialysis N18.6; Z99.2
--- NOTE | 2023-05-08 13:16 | ECG_ITS ---
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 Measurements Intervals [place] Rate: 89 P: 49 CO: 203 QRS: 133 QRSD: 104 T: 24 QT: 382 QTc: 466 Interpretive Statements SINUS RHYTHM INCOMPLETE RIGHT BUNDLE BRANCH BLOCK [90+ ms QRS DURATION, TERMINAL R IN V1/V2, 40+ ms S IN I/aVL/V4/V5/V6] POSSIBLE RIGHT VENTRICULAR HYPERTROPHY [SOME/ALL OF: PROMINENT R IN V1, LATE TRANSITION, RAD, JEROME, SSS] Compared to ECG 05/08/2023 12:43:55 Sinus tachycardia no longer present Myocardial infarct finding no longer present T-wave abnormality no longer present Possible ischemia no longer present Electronically Signed On 05-08-2023 15:20:07 CDT by Erik Arguelles M.D. [id number]
[2023-05-08 13:26] LABS: Troponin(5th) Baseline 1013 ng/L (0-15)
[2023-05-08] MEDS: heparin 5,000 unit/mL INJ 1 mL IV ×2 (13:37→21:24)
[2023-05-08] MEDS: heparin drip 25,000 UNIT/500 ML PREMIX 5137.6 UNIT IV (13:46)
--- NOTE | 2023-05-08 14:07 | PC.HD ---
Patient has had low BPs, so albumin prn x3 was infused at treatment initiation. BP remained low 70s-90s systolic. After approximately 1.5 hours, patient's heart rate begain increasing and he began complaining of 8/10 chest pain. Hypotension dialysis interventions were initiated: Dialysate temperature was lowered to 35.0C, and UF rate was reduced to 300 mL/hour. This was ineffective. This RN then administered 100 mL NSS with no improvement. At this time, Dr. Sams instructed this RN to terminate treatment. A rapid response was called, as the patient was yelling out in pain. Sats were 98% throughout. EKG was performed and labs were drawn. Patient returned to his room with plans for a second EKG to follow. Order Tracer aware.
[2023-05-08] MEDS: doxycycline 100 mg Tablet PO (15:05)
--- NOTE | 2023-05-08 15:07 | W.PM.EVENTAC ---
Event Note Event Note: Had chest pain during dialysis. EKG performed did not show ST elevation. Troponin higher than before. Cardiology consult will be obtained. Echo from admission back in preserved EF. We will transition to ICU, transfusion orders for 1 unit of packed red blood cells written. He has had intermittent hypotension. Consider albumin if this does not improve with blood products. I am worried his chest discomfort represented angina. He was initiated on a heparin drip. He reports that if he cannot make decisions on his own he would want Claudine Velasco his sister to make decisions.
--- NOTE | 2023-05-08 15:10 | ECG_ITS ---
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 Measurements Intervals [place] Rate: 84 P: 51 CO: 180 QRS: 139 QRSD: 102 T: 23 QT: 381 QTc: 452 Interpretive Statements SINUS RHYTHM INCOMPLETE RIGHT BUNDLE BRANCH BLOCK [90+ ms QRS DURATION, TERMINAL R IN V1/V2, 40+ ms S IN I/aVL/V4/V5/V6] POSSIBLE RIGHT VENTRICULAR HYPERTROPHY [SOME/ALL OF: PROMINENT R IN V1, LATE TRANSITION, RAD, JEROME, SSS] Compared to ECG 05/08/2023 13:16:25 No significant changes Electronically Signed On 05-08-2023 15:20:36 CDT by Erik Arguelles M.D. [id number]
[2023-05-08] MEDS: vitamin A & D oint 1 APPLIC TOPICAL (15:22)
--- NOTE | 2023-05-08 15:54 | P.CONIM_ITS ---
Providers/Reason For Consult Consulting Physician/Specialty*: Cardiovascular medicine Reason for Consult*: Elevated troponin, chest pain Requesting Physician: Dane Attending Physician: Darren Vela MD Primary Care Provider: Sulma Wetzel MD History of Present Illness History of Present Illness Akil Velasco is a 53 year old male who is seriously chronically ill and he is in end-stage renal failure patient on hemodialysis. He does not care very well for himself and has a tremendous number of underlying problems including chronic respiratory failure, chronic lower extremity ulcers, COPD, diabetes, history of below the knee amputation, renal cell carcinoma, hypertension, super morbid obesity, obesity hypoventilation syndrome, sleep apnea, peripheral arterial disease, restrictive lung disease, chronic venous insufficiency and cirrhosis. He is in the hospital frequently for complications from all of the above- mentioned medical problems. If 1 looks back over his troponins they are typically in the 5-600 range. He was admitted yesterday with shortness of breath and volume overload. He missed a hemodialysis appointment. He gets frequent paracenteses for ascites. He came in with anasarca. His potassium was 7. It has been treated with medications and a dialysis run. It is currently 6 .2. Additionally his hemoglobin was 8. He was transfused 1 unit of packed red blood cells. He complains of chest pain at the end of the dialysis run. He is also complaining of pain in his penis and scrotum. A CT scan of that area was negative for Brandon's gangrene or any other internal issues. There is a suspicion of cellulitis. His EKGs have shown a right bundle branch block with nonspecific ST and T wave changes. One of the EKGs represented at misplacement of the limb leads so it inappropriately suggested a lateral wall infarct which is not present. A limited echo was a very poor quality study which probably revealed normal LV function. His admission hemoglobin was 7.5. His admission BUN and creatinine were 106 and 9 respectively. His troponins yesterday were 564, 550 and 609. Today a series has been repeated and the first 1 was 1013. The second and third are still pending. His BNP is almost 52,000. I was asked to see him because of the chest pain at the end of the dialysis runs and because of the elevated troponin. When I went to see him on the first floor he was being transferred to the ICU. His blood pressure is 70/50. He cannot give a cogent history. He is awake but cannot answer questions appropriately. He tends to ramble off the subject. He does not put together complete sentences and the subject matter seems to change and he cannot stay within a cognitive set. Review of Systems Narrative: Unavailable due to his mental status. Medications/Allergies Home Medications Medication Instructions Recorded Confirmed Last Taken Type Wheel Chair #1 ea 08/18/21 05/07/23 04/27/23 Rx ropinirole 0.25 mg tablet 0.25 mg PO BEDTIME PRN Restless 08/22/21 05/07/23 04/30/23 History Leg(S) sodium zirconium cyclosilicate 5 See Rx Instructions .Route .COMPLEX 08/22/21 05/07/23 05/06/23 History gram oral powder packet (Lokelma) ondansetron HCl 4 mg tablet 4 mg PO Q4H PRN Nausea 04/11/22 05/07/23 04/27/23 History Compression Stockings #1 ea 04/12/22 05/07/23 04/27/23 Rx [place] boot modification #1 ea 07/17/22 05/07/23 04/27/23 Rx oxycodone 5 mg tablet 5 mg PO Q6H PRN Pain 08/16/22 05/07/23 04/29/23 History sevelamer carbonate 800 mg tablet See Rx Instructions .Route .COMPLEX 09/18/22 05/07/23 05/06/23 History B-complex with vitamin C 1 cap PO QAM 10/16/22 05/07/23 05/06/23 History albuterol sulfate 90 mcg/actuation 2 puff inhalation Q6H PRN 10/16/22 05/07/23 04/29/23 History aerosol inhaler Shortness Of Breath bisacodyl 10 mg rectal suppository 10 mg SD DAILY PRN Constipation 10/16/22 05/07/23 04/29/23 History (Dulcolax (bisacodyl)) brexpiprazole 0.25 mg tablet 0.25 mg PO QAM 10/16/22 05/07/23 05/06/23 History diphenhydramine HCl 25 mg tablet 25 mg PO DAILY PRN itching 10/16/22 05/07/23 03/28/23 History (Benadryl Allergy) hydroxyzine HCl 25 mg tablet 25 mg PO Q6H PRN Anxiety 10/16/22 05/07/23 04/02/23 History polyethylene glycol 3350 17 17 g PO BID PRN Constipation 10/16/22 05/07/23 04/29/23 History gram/dose oral powder (Miralax) venlafaxine 75 mg capsule,extended 75 mg PO QAM 10/16/22 05/07/23 05/06/23 History release 24 hr (Effexor XR) Prevalon boot #1 ea 11/21/22 05/07/23 04/27/23 Rx cilostazol 50 mg tablet 50 mg PO BID 11/21/22 05/07/23 05/06/23 History trazodone 100 mg tablet 100 mg PO BEDTIME PRN Sleep 11/21/22 05/07/23 04/29/23 History diabetic shoes with 3 heat molded #1 ea 12/15/22 05/07/23 04/27/23 Rx insoles gabapentin 300 mg capsule 300 mg PO TID PRN NERVE PAIN 01/02/23 05/07/23 04/29/23 History atorvastatin 80 mg tablet 80 mg PO QAM 05/07/23 05/07/23 05/06/23 History escitalopram oxalate 10 mg tablet 10 mg PO QAM 05/07/23 05/07/23 05/06/23 History vit B,C-folic ac 800 mcg-zinc 12.5 1 tab PO QAM 05/07/23 05/07/23 05/06/23 History mg-selen-D3 2,000 unit-vit E tablet (RenaPlex-D) Allergies Allergy/AdvReac Type Severity Reaction Status Date / Time linezolid [From Zyvox] Allergy tendonitis Verified 05/07/23 02:33 ciprofloxacin [From Cipro] AdvReac Severe Tendonitis Verified 05/07/23 02:33 Current Medications Generic Name Dose Route Start Last Admin Trade Name Freq PRN Reason Stop Dose Admin Acetaminophen 650 mg 05/07/23 06:38 05/07/23 20:59 Acetaminophen 325 Mg Tablet PO 650 mg Q6H PRN Administration Mild/Mod Pain Or Temp >/= 101 Aspirin 81 mg 05/07/23 09:00 05/08/23 09:01 Aspirin 81 Mg Ec Tablet PO 81 mg DAILY [place] Administration Atorvastatin Calcium 80 mg 05/08/23 09:00 05/08/23 09:02 Atorvastatin 40 Mg Tablet PO 80 mg DAILY [place] Administration Cilostazol 50 mg 05/07/23 09:00 05/08/23 09:02 Cilostazol 100 Mg Tablet PO 50 mg BID [place] Administration Doxycycline Monohydrate 100 mg 05/08/23 10:20 05/08/23 15:05 Doxycycline 100 Mg Tablet PO 100 mg BID [place] Administration Protocol Folic Acid 1 mg 05/07/23 09:00 05/08/23 09:02 Folic Acid 1 Mg Tablet PO 1 mg DAILY [place] Administration Gabapentin 300 mg 05/07/23 09:00 05/08/23 15:25 Gabapentin 300 Mg Capsule PO 300 mg TID [facility] Administration Heparin Sodium (Porcine) 5,000 unit 05/08/23 09:45 05/08/23 14:32 Heparin 5,000 Unit/Ml Inj 1 Ml SUBCUT Not Given Q12H [facility] Heparin Sodium (Porcine) 0 unit 05/08/23 13:07 05/08/23 13:37 Heparin 5,000 Unit/Ml Inj 1 Ml IV 6,800 unit PRN PRN Administration Heparin weight-base protocol Protocol Albumin Human 12.5 gm in 50 mls @ 60 mls/hr 05/07/23 06:37 05/08/23 12:25 Albumin IV 60 mls/hr PRN PRN Administration Hypotension and/or symptomatic Piperacillin Sod/Tazobactam 50 mls @ 12.5 mls/hr 05/08/23 09:00 05/08/23 09:06 Sod 3.375 gm/ Sodium Chloride IV 12.5 mls/hr Q12H [place] Administration Protocol As Directed Heparin Sodium/Sodium Chloride 25,000 unit in 500 mls @ 0 mls/hr 05/08/23 13:15 05/08/23 13:46 Heparin Drip IV 1,900 unit/kg/hr .Q0M [place] 5,137.6 mls/hr Administration Protocol Per Protocol Midodrine 5 mg 05/08/23 09:00 05/08/23 15:25 Midodrine 5 Mg Tablet PO 5 mg TID [facility] Administration Morphine Sulfate 1 mg 05/07/23 21:20 05/08/23 09:17 Morphine 4 Mg/Ml Sdv 1 Ml IVP 1 mg Q4H PRN Administration SEVERE PAIN Ondansetron HCl 4 mg 05/07/23 06:38 05/07/23 21:32 Ondansetron 2 Mg/Ml Sdv 2 Ml IVP 4 mg Q8H PRN Administration vomiting, or N/V if npo Oxycodone HCl 5 mg 05/07/23 12:34 05/07/23 15:55 Oxycodone 5 Mg Ir Tab/Cap PO 5 mg Q4H PRN Administration MODERATE PAIN Pantoprazole Sodium 40 mg 05/07/23 09:00 05/08/23 09:[address] 40 Mg Tablet PO 40 mg DAILY [place] Administration Polyethylene Glycol 17 gm 05/07/23 09:00 05/08/23 09:09 Polyethylene Glycol 3350 Pkt 17 Gm PO Not Given BID [place] Sevelamer Carbonate 4,000 mg 05/07/23 08:00 05/08/23 15:14 Sevelamer 800 Mg Tablet PO 4,000 mg TIDWM [place] Administration Trazodone HCl 100 mg 05/07/23 21:00 05/07/23 20:59 Trazodone 100 Mg Tablet PO 100 mg BEDTIME [place] Administration Venlafaxine HCl 75 mg 05/07/23 09:00 05/08/23 09:00 Venlafaxine Er (24hr) 75 Mg Capsule PO 75 mg DAILY [place] Administration Vitamin A/Vitamin D 1 applic 05/08/23 10:30 05/08/23 15:22 Vitamin A & D Oint TOPICAL 1 applic QID PRN Administration DRYNESS PFSH Acute PFSH: Medical History (Updated 05/08/23 @ 16:08 by Colby Fernandez MD) Accelerated hypertension Acquired equinovarus deformity of left foot Anemia Anemia of chronic disease BMI 50.0-59.9, adult Cardiac arrest (~07/2020) when had covid Cellulitis Cellulitis CHF (congestive heart failure), NYHA class III Chronic osteomyelitis of right foot Chronic respiratory failure with hypoxia and hypercapnia Chronic ulcer of left foot with fat layer exposed Chronic venous insufficiency COPD (chronic obstructive pulmonary disease) Diabetes Diabetic foot ulcers 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, limited to breakdown of skin ESRD (end stage renal disease) on dialysis First degree heart block Foot osteomyelitis, left Foot osteomyelitis, right Fracture of fifth metatarsal bone of left foot Fracture of fourth metatarsal bone of left foot Fracture, thoracic vertebra T7-T8 Gas gangrene History of left below knee amputation History of renal cell carcinoma Hypertension Hypovolemic shock Lung nodule Morbid obesity with BMI of 40.0-44.9, adult Neuropathy Non-healing ulcer of right foot with fat layer exposed Non-pressure chronic ulcer of other part of right foot with necrosis of muscle Obesity hypoventilation syndrome Obstructive sleep apnea non compliant with home bipap/cpap Osteomyelitis Osteomyelitis Pneumonia due to 2019-nCoV (~07/2020) Pre-ulcerative calluses PVD (peripheral vascular disease) Renal cell carcinoma History bilateral renal cell carcinoma 2007 then recurrence on the contralateral side 2011. No recurrence for long-term follow-up with some suspicion on CT scan April 2020. Restrictive lung disease Type 2 diabetes mellitus Type 2 diabetes mellitus with diabetic polyneuropathy 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 Ulcer of sacral region, stage 1 Urinary retention Vitamin D deficiency Xerosis of skin Surgical History H/O partial nephrectomy bilateral H/O wisdom tooth extraction History of cataract surgery Hx of lymph node excision Status post below-knee amputation of left lower extremity Family History Father , at age 65 Diabetes Cancer Metastatic prostate cancer to liver Mother , at age 72 Diabetes Grandfather Diabetes Cancer Other Anemia Hyperlipidemia Social History Smoking and tobacco status: never smoked Second hand smoke exposure: Yes Smoking risk assessment/counseling performed?: Yes Alcohol intake: current Alcohol intake frequency: holidays/special occasions only Substance/Drug Use: never Lives independently: Yes Household members: spouse Housing: House Marital status: service: No Current occupational status: retired Pets and animals: Yes Do you think of yourself as: Straight/Heterosexual Current gender identity: Male Vitals/I&O/Wt Last Vital Signs Temp 97.7 F 05/08/23 14:05 Pulse 93 05/08/23 15:51 Resp 18 05/08/23 14:05 BP 93/63 05/08/23 14:05 Pulse Ox 93 05/08/23 15:51 O2 Del Method Room Air 05/08/23 07:52 O2 Flow Rate 97 05/08/23 07:52 FiO2 30 05/08/23 15:51 05/08/23 05/08/23 05/08/23 06:59 14:59 22:59 Intake Total 240 / 786.867 632 / 632 Output Total 1291 / 1291 Balance 240 / -2613.133 -659 / -659 Weight last 48 hrs Weight 277 lb 12.519 oz Weight 298 lb 1.039 oz Weight 260 lb Physical Exam Narrative: GENERAL: In general he looks comfortable in the ICU and is on a BiPAP machine. He is slightly confused HEENT: Exam within normal limits. NECK: Supple without jugular vein distention. The carotid upstroke is normal without bruits. BACK: Exam normal. LUNGS: Clear. Crackles in the bases HEART: Regular rate and rhythm. ABDOMEN: Benign without organomegaly or tenderness. Ascites EXTREMITIES: 2+ edema. NEUROLOGIC: Exam normal. SKIN: Unremarkable. Data 05/08/23 04:31 05/08/23 04:31 Micro: Microbiology 05/07/23 05:50 Blood Culture - Preliminary Blood NEGATIVE TO DATE 05/07/23 02:36 Blood Culture - Preliminary Blood NEGATIVE TO DATE A&P Assessment and plan (1) Chest pain: (2) Elevated troponin: (3) Anasarca: (4) Acute and chronic respiratory failure with hypoxia: (5) Uremia: (6) Acute hyperkalemia: (7) Ascites: (8) Anemia: (9) End-stage renal disease on hemodialysis: (10) Chronic osteomyelitis: (11) History of left below knee amputation: (12) Type 2 diabetes mellitus with diabetic polyneuropathy: Qualifiers: Diabetes mellitus usp insulin use: unspecified usp insulin use status Qualified Code(s): E11.42 - Type 2 diabetes mellitus with diabetic polyneuropathy (13) Restrictive lung disease: (14) Renal cell carcinoma: (15) PVD (peripheral vascular disease): (16) Obstructive sleep apnea: (17) Morbid obesity with BMI of 40.0-44.9, adult: (18) ESRD (end stage renal disease) on dialysis: (19) Chronic venous insufficiency: (20) CHF (congestive heart failure), NYHA class III: Plan At this point the patient is too ill for any type of cardiac testing. Neither angiography nor stress testing is indicated at this time. His blood pressure is too low and his electrolytes to abnormal. When and if these things get straightened out we can decide upon further testing Consult Attestations Medical Necessity Statement: Admission for management of multiple medical problems mentioned above and High Time for a total of 70 minutes, includes reviewing past or interval history, examining/interviewing patient, counseling patient/family/other support, updating patient/family/other support, discussing plan of care with staff, communicating with other healthcare providers, documenting encounter and coordinating care Diagnoses Chest pain R07.9 Elevated troponin R79.89 Anasarca R60.1 Acute and chronic respiratory failure with hypoxia J96.21 Uremia N19 Acute hyperkalemia E87.5 Ascites R18.8 Anemia D64.9 End-stage renal disease on hemodialysis N18.6; Z99.2 Chronic osteomyelitis M86.60 History of left below knee amputation Z89.512 Type 2 diabetes mellitus with diabetic polyneuropathy E11.42 Diabetes mellitus long term care social worker insulin use: unspecified long term care social worker insulin use status Restrictive lung disease J98.4 Renal cell carcinoma C64.9 PVD (peripheral vascular disease) I73.9 Obstructive sleep apnea G47.33 Morbid obesity with BMI of 40.0-44.9, adult E66.01; Z68.41 ESRD (end stage renal disease) on dialysis N18.6; Z99.2 Chronic venous insufficiency I87.2 CHF (congestive heart failure), NYHA class III I50.9
--- NOTE | 2023-05-08 16:05 | PC.NURSE ---
1500 Patient awake and alert but blood pressure very low and O2 sat low, increased O2 to 5l n/c, notified dr vela. Ask patient if in pain, he said yes, just his penis hurting, denies any chest pain. 1515 Dr. Vela at bedside, speaking with patient and . Will transfer patient to ICU. 1535 Transfered via bed to ICU 12, gave report to Lynn and in ICU waiting room. Phone, community youth secretary, glasses and clothes transfered with patient.
[2023-05-08 16:26] LABS: Troponin 5 2HR 1104 ng/L (0-15)
[2023-05-08 16:27] LABS: Troponin 5 2HR Delta 91 ABS# (0-10)
--- NOTE | 2023-05-08 18:35 | ECG_ITS ---
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 Measurements Intervals [place] Rate: 89 P: 201 ID: [id number] QRS: 137 QRSD: 104 T: -6 QT: 388 QTc: 474 Interpretive Statements SINUS RHYTHM WITH SHORT ID INTERVAL INCOMPLETE RIGHT BUNDLE BRANCH BLOCK [90+ ms QRS DURATION, TERMINAL R IN V1/V2, 40+ ms S IN I/aVL/V4/V5/V6] POSSIBLE RIGHT VENTRICULAR HYPERTROPHY [SOME/ALL OF: PROMINENT R IN V1, LATE TRANSITION, RAD, JEROME, SSS] ABNORMAL QRS-T ANGLE [QRS-T AXIS DIFFERENCE > 60] Compared to ECG 05/08/2023 15:10:16 Short ID interval now present Electronically Signed On 05-08-2023 23:09:52 CDT by Erik Arguelles M.D. [id number]
[2023-05-08 19:45] LABS: Partial Thromboplastin Time 46.3 SECONDS (23.9-36.7)
[2023-05-08 19:52] LABS: Troponin 5 6HR 1153 ng/L (0-15); Troponin 5 6HR Delta 140 ng/L (0-12)
[2023-05-08] MEDS: heparin drip 25,000 UNIT/500 ML PREMIX 41 UNIT IV (20:02)
[2023-05-08] MEDS: oxyCODONE 5 mg IR Tab/Cap PO (20:17)
[2023-05-08] MEDS: trazodone 100 mg Tablet PO (20:17)
[2023-05-08] MEDS: hyDROXYzine 25 mg Capsule PO (20:18)
[2023-05-09] VITALS (64 sets, daily range): BP systolic 80–116; BP diastolic 44–78; PULSE 83–98; RESP 2–27; TEMP 36.9–37.2; O2SAT 62–100
[2023-05-09] MEDS: doxycycline 100 mg Tablet PO ×3 (02:03→17:10)
[2023-05-09 02:04] LABS: Glucose Point of Care 105 mg/dL (70-110)
[2023-05-09 02:10] LABS: Basophils % 0.4 %; Eosinophils # 0.3 10^3/uL (0.0-0.8); Eosinophils % 3.2 %; Hematocrit 28.8 % (37-53); Lymphocytes # 0.7 10^3/uL (0.8-4.8); Lymphocytes % 6.9 %; Mean Corpuscular HGB Conc 29.9 g/dL (30-55); Mean Corpuscular Hemoglobin 25.1 pg (27-33); Mean Platelet Volume 10.5 fL (7.4-10.4); Monocytes # 0.8 10^3/uL (0.2-0.9); Monocytes % 8.7 %; Neutrophils # 7.67 10^3/uL (1.8-7.7); Neutrophils % 80.4 %; Nucleated Red Blood Cells % 0 %; Platelet Count 155 10^3/cmm (157-399); Red Blood Count 3.43 10^6/uL (3.85-5.65); Red Cell Distribution Width 16.6 % (12.1-15.1); White Blood Count 9.55 10^3/uL (3.29-11.43)
[2023-05-09 02:27] LABS: Partial Thromboplastin Time 46.1 SECONDS (23.9-36.7)
[2023-05-09 02:31] LABS: Anion Gap 20.9 (5-19); Blood Urea Nitrogen 64 mg/dL (6-20); Calcium 8.1 mg/dL (8.5-10.5); Carbon Dioxide 25 mmol/L (22-29); Chloride 93 mmol/L (98-107); Glomerular Filtration Rate 9.2 mL/min (90-130); Glucose 106 mg/dL (65-115); Osmolality Calculated 295 mOsm/kg (285-295); Potassium 5.9 mmol/L (3.5-5.1); Sodium 133 mmol/L (136-145)
[2023-05-09] MEDS: heparin 5,000 unit/mL INJ 1 mL IV ×3 (02:46→17:10)
--- NOTE | 2023-05-09 07:17 | P.PN_ITS ---
Subjective Subjective: Patient was placed on norepinephrine last evening. He is on 4 mcg/min at this time. He remains on BiPAP. He is asleep this morning. The second series of troponins were elevated further. The first 1 was 1013, the second 1104 and the third 1153. As best I can tell the patient is not having any chest pain this morning. His potassium is down to 5.9. Vitals/I&O/Wt Last Vital Signs Temp 98.8 F 05/09/23 05:45 Pulse 95 05/09/23 06:15 Resp 12 05/09/23 06:15 BP 84/54 05/09/23 06:15 Pulse Ox 95 05/09/23 06:15 O2 Del Method BiPAP 05/09/23 06:15 O2 Flow Rate 3 05/09/23 05:30 FiO2 40 05/09/23 06:15 05/08/23 05/09/23 05/09/23 22:59 06:59 14:59 Intake Total 760.216 / 1392.216 786.174 / 2178.390 Output Total 0 / 1291 Balance 760.216 / 101.216 786.174 / 887.390 Weight last 48 hrs Weight 277 lb 12.519 oz Weight 298 lb 1.039 oz Physical Exam Narrative: GENERAL: In general he is asleep on BiPAP this morning. HEENT: Exam within normal limits. NECK: Supple without jugular vein distention. The carotid upstroke is normal without bruits. BACK: Exam normal. LUNGS: Clear. HEART: Regular rate and rhythm. ABDOMEN: Benign without organomegaly or tenderness. EXTREMITIES: No edema. NEUROLOGIC: Exam normal. SKIN: Unremarkable. Data 05/09/23 02:03 05/09/23 02:03 Micro: Microbiology 05/07/23 14:30 Gram Stain - Final Peritoneal Fluid 05/07/23 05:50 Blood Culture - Preliminary Blood NEGATIVE TO DATE 05/07/23 02:36 Blood Culture - Preliminary Blood NEGATIVE TO DATE A&P Assessment and plan (1) CHF (congestive heart failure), NYHA class III: (2) Chronic venous insufficiency: (3) ESRD (end stage renal disease) on dialysis: (4) Morbid obesity with BMI of 40.0-44.9, adult: (5) Obstructive sleep apnea: (6) PVD (peripheral vascular disease): (7) Renal cell carcinoma: (8) Restrictive lung disease: (9) Type 2 diabetes mellitus with diabetic polyneuropathy: Qualifiers: Diabetes mellitus watermelon inspector insulin use: unspecified watermelon inspector insulin use status Qualified Code(s): E11.42 - Type 2 diabetes mellitus with diabetic polyneuropathy (10) Chest pain: (11) Elevated troponin: (12) Anasarca: (13) Uremia: (14) Acute and chronic respiratory failure with hypoxia: (15) Acute hyperkalemia: (16) Ascites: (17) Anemia: (18) End-stage renal disease on hemodialysis: (19) History of left below knee amputation: Plan We will continue to follow. He probably should have angiography once things settle down a little bit. I am not comfortable proceeding at this time due primarily to his hypotension. Attestations Medical Necessity Statement*: Hospitalization for management of hypotension, elevated troponin, chest pain, end-stage renal disease. and Moderate Time for a total of 40 minutes, includes reviewing past or interval history, examining/interviewing patient, counseling patient/family/other support, discussing plan of care with staff and documenting encounter Diagnoses CHF (congestive heart failure), NYHA class III I50.9 Chronic venous insufficiency I87.2 ESRD (end stage renal disease) on dialysis N18.6; Z99.2 Morbid obesity with BMI of 40.0-44.9, adult E66.01; Z68.41 Obstructive sleep apnea G47.33 PVD (peripheral vascular disease) I73.9 Renal cell carcinoma C64.9 Restrictive lung disease J98.4 Type 2 diabetes mellitus with diabetic polyneuropathy E11.42 Diabetes mellitus watermelon inspector insulin use: unspecified senior care insulin use status Chest pain R07.9 Elevated troponin R79.89 Anasarca R60.1 Uremia N19 Acute and chronic respiratory failure with hypoxia J96.21 Acute hyperkalemia E87.5 Ascites R18.8 Anemia D64.9 End-stage renal disease on hemodialysis N18.6; Z99.2 History of left below knee amputation Z89.512
[2023-05-09 08:21] LABS: Glucose Point of Care 123 mg/dL (70-110)
[2023-05-09 08:46] LABS: Partial Thromboplastin Time 48.6 SECONDS (23.9-36.7)
[2023-05-09] MEDS: heparin drip 25,000 UNIT/500 ML PREMIX 44 UNIT IV (08:46)
[2023-05-09] MEDS: piperacillin-tazobactam 3.375 GM in sodium chloride 0.9% (plus) 50 ML IV ×2 (08:47→20:34)
[2023-05-09] MEDS: polyethylene glycol 3350 Pkt 17 gm PO ×2 (08:48→17:10)
[2023-05-09] MEDS: sevelamer 800 mg Tablet 4000 MG PO ×3 (08:49→17:10)
[2023-05-09] MEDS: gabapentin 300 mg Capsule PO (08:50)
[2023-05-09] MEDS: midodrine 5 mg TABLET PO ×3 (08:50→20:35)
[2023-05-09] MEDS: atorvastatin 40 mg Tablet 80 MG PO (08:50)
[2023-05-09] MEDS: folic acid 1 mg Tablet PO (08:50)
[2023-05-09] MEDS: pantoprazole DR 40 mg Tablet PO (08:50)
[2023-05-09] MEDS: aspirin 81 mg EC Tablet PO (08:50)
[2023-05-09] MEDS: venlafaxine ER (24HR) 75 mg Capsule PO (08:50)
[2023-05-09] MEDS: vitamin A & D oint 1 APPLIC TOPICAL (09:01)
--- NOTE | 2023-05-09 10:25 | PM.PN ---
Documented by User: Judy Calzada 05/09/23 10:53 Subjective Subjective: Today, pt reports improving penile and scrotal pain attributed to wound care and increased lubrication of his penile tissue with A + D ointment. He is concerned about bed sores forming that are causing him some discomfort. He had to discontinue dialysis treatment yesterday due to chest pain, but he denies any chest pain today. Remainder of ROS is also negative. He has no other concerns at this time. Vitals/I&O/Wt Last Vital Signs Temp 98.8 F 05/09/23 05:45 Pulse 91 05/09/23 08:54 Resp 18 05/09/23 08:54 BP 84/54 05/09/23 06:15 Pulse Ox 94 05/09/23 08:54 O2 Del Method Nasal Cannula 05/09/23 08:54 O2 Flow Rate 3 05/09/23 08:54 FiO2 40 05/09/23 06:15 05/08/23 05/09/23 05/09/23 22:59 06:59 14:59 Intake Total 760.216 / 1392.216 786.174 / 2178.390 126.229 / 126.229 Output Total 0 / 1291 Balance 760.216 / 101.216 786.174 / 887.390 126.229 / 126.229 Weight last 48 hrs Weight 126 kg Weight 135.2 kg Physical Exam Narrative: General: pt is conversant, alert, and cooperative. He is using 3 L O2 via nasal canulla. Neck: supple Cardiac: regular rate and rhythm. 2/6 systolic murmur present at left sternal border. Respiratory: lungs clear bilaterally. Abdomen: no guarding, abdominal tenderness. Abdominal distension and fluid wave improved. : improved erythema and edema of scrotum. Extremities: below the knee amputation of left leg. Multiple ulcerations and discoloration present on right leg. Data 05/09/23 02:03 05/09/23 02:03 Other Labs: Elevated troponin of 1153 with delta of 140 last night. Decreased calcium at 8.1 Micro: Microbiology 05/07/23 14:30 Gram Stain - Final Peritoneal Fluid 05/07/23 05:50 Blood Culture - Preliminary Blood NEGATIVE TO DATE 05/07/23 02:36 Blood Culture - Preliminary Blood NEGATIVE TO DATE A&P Assessment and plan (1) Acute hyperkalemia: Dialysis will potentially be scheduled today based on dental laboratory manager advice Still with elevation of potassium, but lower than previous result. CBC, CMP tomorrow (2) Ascites: Abdominal ascites have improved since last paracentesis. Will continue to monitor for future need for additional paracentesis. (3) Anemia: Pt was typed and crossed for blood transfusion yesterday. He received one unit of blood. His anemia has improved following transfusion. Will continue to monitor CBC for future need of additional transfusion. (4) Anasarca: Patient with ongoing anasarca with evidence of fluid overload as well as ascites. Dialysis performed yesterday removed ... fluid. Pt anasarca and fluid overload have gradually improved. Will continue to monitor for future treatment. Pt fluid intake being limited to prevent further fluid overload. (5) Elevated troponin: Pt had elevations in troponins after receiving dialysis yesterday. His second and third series continued to elevate. Likely secondary to CKD. Pt denies any further chest pain today. Consider outpatient nuclear stress testing Continue aspirin and statin (6) Type 2 diabetes mellitus: On no insulin products currently. Placed on renal dialysis diet, low potassium (7) Chest pain: Patient denies chest pain this morning. Continue aspirin, statin. Consider nuclear stress testing. Last nuclear stress test was approximately 3 years ago and normal with the exception of low EF. Last echocardiogram demonstrates recovery of ejection fraction, with normal EF around 55%. Repeat echocardiogram is pending, but taken. If it shows any significant change from previous could consider doing stress test inpatient. (8) Abnormal TSH: TSH is high. Consideration for subclinical hypothyroidism versus euthyroid sick. Suggest repeat of TSH, in approximately 4 weeks. Plan Penile pain. pain reported by patient has improved. Will continue to assist with keeping the area cleaned and lubricated as patient says that this helps. Scrotal cellulitis. Erythema and edema of scrotum have improved. Will continue Zosyn to treat empirically for any underlying infection of scrotum and continue conservative measures, such as scrotal elevation to reduce scrotal swelling. Hypotension. Pt was started on 4 mcg/mL of norepinephrine last night, which improved his hypotension. This was tapered to 2 mcg/mL this morning to see if pt BP tolerated the change. Will continue to monitor for recurrent decline in pressure. Multiple other medical problems as outlined in past medical history Full Code currently Heparin will suffice for DVT prophylaxis Coding Level of Care Code Critical Care >/= 30 minutes Diagnoses Acute hyperkalemia E87.5 Ascites R18.8 Anemia D64.9 Anasarca R60.1 Elevated troponin R79.89 Type 2 diabetes mellitus E11.9 Chest pain R07.9 Abnormal TSH R79.89 Documented by User: Darren Vela MD 05/09/23 13:33 Subjective Subjective: Today, pt reports improving penile and scrotal pain attributed to wound care and increased lubrication of his penile tissue with A + D ointment. He is concerned about bed sores forming that are causing him some discomfort. He had to discontinue dialysis treatment yesterday due to chest pain, but he denies any chest pain today. Remainder of ROS is also negative. He has no other concerns at this time. I agree with the above, and interviewed the patient as well. He reports absolutely no chest discomfort overnight. Medications: Reviewed: Yes Data 05/09/23 02:03 05/09/23 02:03 A&P Assessment and plan (1) Acute hyperkalemia: (2) Ascites: (3) Anemia: (4) Anasarca: Patient with ongoing anasarca with evidence of fluid overload as well as ascites. Dialysis performed yesterday removed approximately 1.5 L of fluid Pt anasarca and fluid overload have gradually improved. Will continue to monitor for future treatment. Pt fluid intake being limited to prevent further fluid overload. (5) Elevated troponin: Pt had elevations in troponins after receiving dialysis yesterday. His second and third series continued to elevate. Likely secondary to CKD. Pt denies any further chest pain today. Cardiology consultation obtained. They are continuing to follow patient. Continue aspirin and statin as well as heparin. Plan on discontinuing heparin after 48 hours (6) Type 2 diabetes mellitus: (7) Chest pain: Patient denies chest pain this morning. Continue aspirin, statin. Cardiology consult appreciated. Last nuclear stress test was approximately 3 years ago and normal with the exception of low EF. Last echocardiogram demonstrates recovery of ejection fraction, with normal EF around 55%. Repeat echocardiogram limited showed normal LV function, poor windows. (8) Abnormal TSH: Attestations Medical Necessity Statement*: Needs continued hospital stay in the ICU, requiring pressors, but has seemed to show some improvement from yesterday and his overall clinical status. Critical Care Time: The high probability of a clinically significant, sudden or life threatening deterioration of the patient's [infectious disease, renal, cardiac] system(s) required my full and direct attention, intervention and personal management. The critical care time is as shown. This time is in addition to time spent performing any reported procedures but includes the following: [x] Data and vital sign review and interpretation [x] Patient assessment, examination and intervention [x] Documentation [x] Medication orders and management Critical Care Time (min): 34 Coding Level of Care Code Critical Care >/= 30 minutes Critical care time (in minutes): 34 The high probability of a clinically significant, sudden or life threatening deterioration, as referenced in this documentation, required my full and direct attention, intervention and personal management. The critical care time shown is in addition to time spent performing any reported separately billable procedures and includes the following: [x] Data and vital sign review and interpretation [x] Patient assessment, examination and intervention [x] Medication orders and management [x] Patient/Family updates as able [x] Care Coordination and Documentation. Diagnoses Acute hyperkalemia E87.5 Ascites R18.8 Anemia D64.9 Anasarca R60.1 Elevated troponin R79.89 Type 2 diabetes mellitus E11.9 Chest pain R07.9 Abnormal TSH R79.89
[2023-05-09] MEDS: sodium polystyrene sulfonate 15 gm/60 mL Btl 30 GM PO (10:46)
[2023-05-09 12:20] LABS: Glucose Point of Care 149 mg/dL (70-110)
--- NOTE | 2023-05-09 12:20 | PC.NURSE ---
Pt ate a cup of [employer]ogurt that family had brought him.
[2023-05-09] MEDS: gabapentin 100 mg Capsule PO ×2 (15:01→20:34)
--- NOTE | 2023-05-09 15:06 | PC.NURSE ---
Pt stated he appreciated the hand marker, Efrain, bringing him information and talking to him about the renal diet needs. He continued of course, I am not going to follow it all the time, but when I do it will help me make better choices.
[2023-05-09 16:42] LABS: Anion Gap 23.1 (5-19); Blood Urea Nitrogen 66 mg/dL (6-20); Calcium 7.9 mg/dL (8.5-10.5); Carbon Dioxide 25 mmol/L (22-29); Chloride 92 mmol/L (98-107); Glucose 132 mg/dL (65-115); Osmolality Calculated 299 mOsm/kg (285-295); Potassium 6.1 mmol/L (3.5-5.1); Sodium 134 mmol/L (136-145)
[2023-05-09 16:46] LABS: Partial Thromboplastin Time 43.6 SECONDS (23.9-36.7)
--- NOTE | 2023-05-09 16:47 | PM.PN ---
Subjective Subjective: hypotensive , on levophed Medications: Reviewed: Yes Vitals/I&O/Wt Last Vital Signs Temp 98.5 F 05/09/23 14:00 Pulse 89 05/09/23 14:05 Resp 19 H 05/09/23 14:00 BP 90/49 05/09/23 14:00 Pulse Ox 93 05/09/23 14:00 O2 Del Method Nasal Cannula 05/09/23 14:00 O2 Flow Rate 3 05/09/23 14:00 FiO2 40 05/09/23 06:15 05/09/23 05/09/23 05/09/23 06:59 14:59 22:59 Intake Total 786.174 / 2178.390 1277.826 / 1277.826 41.275 / 1319.101 Output Total 0 / 1291 Balance 786.174 / 387.462 1805.826 / 1277.826 41.275 / 1319.101 Weight last 48 hrs Weight 126 kg Weight 135.2 kg Physical Exam Narrative: awake , alert HEENT mayo s1s2 rrr PER REPORT CRACKLES GARRY PER REPORT NO EDEMA Data 05/09/23 02:03 05/09/23 16:10 Micro: Microbiology 05/07/23 14:30 Gram Stain - Final Peritoneal Fluid Body Fluid Culture - Preliminary A&P Assessment and plan (1) End-stage renal disease on hemodialysis: Plan 1. End-stage renal disease on dialysis per TTS schedule, couldnt tolerate HD yesterday due to Chest pain, hypotensive , stopped after 2 hours of treatment - remains hypotensive and on pressors , hold off HD today and plan HD in Am, repeat BMP penidng 2. Hyperkalemia: s/p kayexylate and low potassium diet 3. Acute on chronic respiratory failure, multifactorial, v 4. Anemia: ALBERTO ordered. 5. Liver cirrhosis with ascites and recurrent paracentesis, 6. History of diabetes with diabetic ulcers 7. chest pain : work up pending Patient evaluated using audiovisual cart. Time spent 20 minutes Attestations Medical Necessity Statement*: per medicine team Coding Level of Care Code Acute Code for Chg Fwd Diagnoses End-stage renal disease on hemodialysis N18.6; Z99.2
[2023-05-09 18:36] LABS: Glucose Point of Care 138 mg/dL (70-110)
[2023-05-09] MEDS: heparin drip 25,000 UNIT/500 ML PREMIX 52 UNIT IV (19:24)
--- NOTE | 2023-05-09 19:40 | PC.NURSE ---
Shift summary: Pt rested in be throughout the shift. He started the shift off using call light every 10-15minutes for various little things (using tv remote, misplacing remote, his glasses, etc) His blood sugars have been between 12mg/dl - 150 mg/dl today. He remains on Levophed and Heparin gtt. Levophed is now at 5 mcg/min, unable to wean. His abdomen remains firm and distended. He has complained of penis pain , A& D ointment applied, provided relief. He complained of buttock ulcer pain, A& D ointment applied there as well, at his request to physician. He continued to complained about bottom pain off and on today . He refused repositioning most of the shift. He has ate all of his meals and requested snacks today. No urine output noted. NO BM noted today. He received Kayexalate for his potassium level today. At next lab level higher and Creatinine and BUN increased. Dr Sams notified, new orders for Dialysis. Visitors?family started around lunch, have remained attentive at bedside off and on the rest of the shift.
[2023-05-09] MEDS: trazodone 100 mg Tablet PO (20:34)
[2023-05-09 21:38] LABS: Glucose Point of Care 121 mg/dL (70-110)
[2023-05-09 21:48] LABS: Cortisol Random 14.54 ug/dL (2.47-19.5)
[2023-05-10] VITALS (70 sets, daily range): BP systolic 83–122; BP diastolic 42–84; PULSE 77–97; RESP 0–25; TEMP 36.6–37.2; O2SAT 80–100
[2023-05-10] MEDS: heparin drip 25,000 UNIT/500 ML PREMIX 52 UNIT IV (04:16)
[2023-05-10 06:05] LABS: Basophils # 0.1 10^3/uL (0.0-0.1); Basophils % 0.7 %; Eosinophils # 0.8 10^3/uL (0.0-0.8); Eosinophils % 8.7 %; Hematocrit 29.9 % (37-53); Lymphocytes # 0.6 10^3/uL (0.8-4.8); Mean Corpuscular HGB Conc 29.4 g/dL (30-55); Mean Corpuscular Hemoglobin 25.1 pg (27-33); Mean Corpuscular Volume 85.2 fl (82-101); Mean Platelet Volume 10.4 fL (7.4-10.4); Neutrophils # 6.18 10^3/uL (1.8-7.7); Nucleated Red Blood Cells % 0 %; Platelet Count 168 10^3/cmm (157-399); Red Blood Count 3.51 10^6/uL (3.85-5.65); Red Cell Distribution Width 17.2 % (12.1-15.1)
--- NOTE | 2023-05-10 06:05 | PC.NURSE ---
Patient very calm and cooperative tonight. Changed treatments dressings and respiratory placed patient back on BIPAP machine and has slept throught the night.
[2023-05-10 06:14] LABS: Partial Thromboplastin Time 68.5 SECONDS (23.9-36.7)
[2023-05-10 06:18] LABS: Alanine Aminotransferase 14 U/L (0-41); Albumin Level 2.8 g/dL (3.5-5.2); Alkaline Phosphatase 55 U/L (40-130); Anion Gap 17.9 (5-19); Aspartate Amino Transferase 22 U/L (0-40); Blood Urea Nitrogen 52 mg/dL (6-20); Carbon Dioxide 28 mmol/L (22-29); Chloride 94 mmol/L (98-107); Globulin 3.8 g/dL (1.3-4.6); Glomerular Filtration Rate 11.2 mL/min (90-130); Glucose 122 mg/dL (65-115); Osmolality Calculated 295 mOsm/kg (285-295); Potassium 4.9 mmol/L (3.5-5.1); Sodium 135 mmol/L (136-145); Total Bilirubin 0.4 mg/dL (0.15-1.2); Total Protein 6.6 g/dL (6.6-8.7)
--- NOTE | 2023-05-10 07:49 | P.PN_ITS ---
Subjective Subjective: Akil remains on BiPAP in the unit on IV heparin and IV norepinephrine at 5 mcg/min. Blood pressure this morning is 110/70. No other real changes. He is arousable but not particularly interactive. Vitals/I&O/Wt Last Vital Signs Temp 98.6 F 05/09/23 22:29 Pulse 83 05/10/23 06:00 Resp 7 L 05/10/23 06:00 BP 106/71 05/10/23 06:00 Pulse Ox 97 05/10/23 06:00 O2 Del Method Nasal Cannula 05/09/23 20:00 O2 Flow Rate 3 05/09/23 20:00 FiO2 30 05/10/23 04:00 05/09/23 05/10/23 05/10/23 22:59 06:59 14:59 Intake Total 1597.471 / 2875.297 916.190 / 3791.487 50 / 50 Output Total 300 / 300 Balance 1297.471 / 2575.297 916.190 / 3491.487 50 / 50 Weight last 48 hrs Weight 285 lb 0.923 oz Weight 277 lb 12.519 oz Physical Exam Narrative: GENERAL: In general he is lying flat in bed on BiPAP HEENT: Exam within normal limits. NECK: Supple without jugular vein distention. The carotid upstroke is normal without bruits. BACK: Exam normal. LUNGS: Clear. HEART: Regular rate and rhythm. ABDOMEN: Benign without organomegaly or tenderness. EXTREMITIES: No edema. NEUROLOGIC: Exam normal. SKIN: Unremarkable. Data 05/10/23 05:50 05/10/23 05:50 Micro: Microbiology 05/07/23 14:30 Gram Stain - Final Peritoneal Fluid Anaerobic Culture - Preliminary Body Fluid Culture - Preliminary A&P Assessment and plan (1) CHF (congestive heart failure), NYHA class III: (2) Chronic venous insufficiency: (3) ESRD (end stage renal disease) on dialysis: (4) Morbid obesity with BMI of 40.0-44.9, adult: (5) Obstructive sleep apnea: (6) PVD (peripheral vascular disease): (7) Renal cell carcinoma: (8) Restrictive lung disease: (9) Type 2 diabetes mellitus with diabetic polyneuropathy: Qualifiers: Diabetes mellitus fdc insulin use: unspecified superintendent operating insulin use status Qualified Code(s): E11.42 - Type 2 diabetes mellitus with diabetic polyneuropathy (10) Elevated troponin: (11) Anasarca: (12) Acute hyperkalemia: (13) Acute and chronic respiratory failure with hypoxia: (14) Anemia: (15) Ascites: (16) Type 2 diabetes mellitus: (17) History of left below knee amputation: Plan I spoke with Dr. Vela. We plan to discontinue the heparin and wean the norepinephrine. Plans will then be made to transfer him to the floor. Right now, I do not think he is a candidate for any cardiac testing. If he improves then we would consider stress testing versus angiography. Attestations Medical Necessity Statement*: Requires continued hospitalization for management of above-mentioned serious medical problems. and Moderate Time for a total of 35 minutes, includes reviewing past or interval history, examining/interviewing patient, placing orders, counseling patient/family/other support, updating patient/family/other support, communicating with other healthcare providers and documenting encounter Diagnoses CHF (congestive heart failure), NYHA class III I50.9 Chronic venous insufficiency I87.2 ESRD (end stage renal disease) on dialysis N18.6; Z99.2 Morbid obesity with BMI of 40.0-44.9, adult E66.01; Z68.41 Obstructive sleep apnea G47.33 PVD (peripheral vascular disease) I73.9 Renal cell carcinoma C64.9 Restrictive lung disease J98.4 Type 2 diabetes mellitus with diabetic polyneuropathy E11.42 Diabetes mellitus fdc insulin use: unspecified superintendent operating insulin use status Elevated troponin R79.89 Anasarca R60.1 Acute hyperkalemia E87.5 Acute and chronic respiratory failure with hypoxia J96.21 Anemia D64.9 Ascites R18.8 Type 2 diabetes mellitus E11.9 History of left below knee amputation Z89.512
[2023-05-10] MEDS: pantoprazole DR 40 mg Tablet PO (08:10)
[2023-05-10] MEDS: doxycycline 100 mg Tablet PO ×2 (08:11→17:51)
[2023-05-10] MEDS: aspirin 81 mg EC Tablet PO (08:11)
[2023-05-10] MEDS: venlafaxine ER (24HR) 75 mg Capsule PO (08:11)
[2023-05-10] MEDS: atorvastatin 40 mg Tablet 80 MG PO (08:11)
[2023-05-10] MEDS: midodrine 5 mg TABLET 10 MG PO ×3 (08:11→21:11)
[2023-05-10] MEDS: folic acid 1 mg Tablet PO (08:11)
[2023-05-10] MEDS: gabapentin 100 mg Capsule PO ×3 (08:11→21:12)
[2023-05-10] MEDS: piperacillin-tazobactam 3.375 GM in sodium chloride 0.9% (plus) 50 ML IV ×2 (08:12→21:11)
[2023-05-10] MEDS: polyethylene glycol 3350 Pkt 17 gm PO ×2 (08:12→17:50)
[2023-05-10] MEDS: sevelamer 800 mg Tablet 4000 MG PO ×3 (08:16→17:51)
[2023-05-10 08:30] LABS: Glucose Point of Care 100 mg/dL (70-110)
--- NOTE | 2023-05-10 09:35 | P.PN_ITS ---
Subjective Subjective: Akil reports he is feeling better this morning. Seems to have more energy. Reports no confusion. Thinks the jerking in his limbs he had yesterday is better as well. He did receive dialysis last night. Medications: Reviewed: Yes Vitals/I&O/Wt Last Vital Signs Temp 98.9 F 05/10/23 07:30 Pulse 86 05/10/23 08:21 Resp 16 05/10/23 08:21 BP 122/84 05/10/23 08:00 Pulse Ox 98 05/10/23 08:21 O2 Del Method Nasal Cannula 05/10/23 08:21 O2 Flow Rate 2 05/10/23 08:21 FiO2 30 05/10/23 04:00 05/09/23 05/10/23 05/10/23 22:59 06:59 14:59 Intake Total 1597.471 / 2875.297 916.190 / 3791.487 290 / 290 Output Total 300 / 300 0 / 0 Balance 1297.471 / 2575.297 916.190 / 3491.487 290 / 290 Weight last 48 hrs Weight 129.3 kg Weight 126 kg Physical Exam Narrative: General: pt is conversant, alert, and cooperative. No distress. On 5 of norepinephrine. Cardiac: regular rate and rhythm. 2/6 systolic murmur present at left sternal border. Respiratory: lungs clear bilaterally. Abdomen: no guarding, abdominal tenderness. Abdominal distension and fluid wave improved. : improved erythema and edema of scrotum from yesterday Extremities: below the knee amputation of left leg. Multiple ulcerations and discoloration present on right leg. Data 05/10/23 05:50 05/10/23 05:50 Micro: Microbiology 05/07/23 14:30 Gram Stain - Final Peritoneal Fluid Anaerobic Culture - Preliminary Body Fluid Culture - Preliminary A&P Assessment and plan (1) Acute hyperkalemia: Resolved with dialysis Nephrology continues to follow BUN and creatinine have improved as well CBC, CMP tomorrow (2) Ascites: Abdominal ascites have improved since last paracentesis. Will continue to monitor for future need for additional paracentesis. (3) Anemia: Pt was typed and crossed for blood transfusion yesterday. He received one unit of blood. Hemoglobin has remained stable. Repeat CBC daily. (4) Anasarca: Improved with dialysis. Some issues removing fluid currently secondary to hypotension (5) Elevated troponin: Patient had elevated troponin, and chest discomfort. He has been on heparin drip for 48 hours, and has had no chest pain following transfusion. Discontinue heparin at this time. Cardiology consult appreciated Continue aspirin, statin Not a candidate for beta-jag considering hypotension (6) Type 2 diabetes mellitus: On no insulin products currently. Placed on renal dialysis diet, low potassium (7) Chest pain: Patient denies chest pain again this morning. Continue aspirin, statin. Cardiology consult appreciated. Last nuclear stress test was approximately 3 years ago and normal with the exception of low EF. Last echocardiogram demonstrates recovery of ejection fraction, with normal EF around 55%. Repeat echocardiogram limited showed normal LV function, poor windows. (8) Abnormal TSH: TSH is high. Consideration for subclinical hypothyroidism versus euthyroid s ick. Suggest repeat of TSH, in approximately 4 weeks. Plan Penile pain. pain reported by patient has improved. Will continue to assist with keeping the area cleaned and lubricated as patient says that this helps. Patient reports he is markedly improved today. Scrotal cellulitis. Erythema and edema of scrotum have improved. Will continue Zosyn to treat empirically for any underlying infection of scrotum and continue conservative measures, such as scrotal elevation to reduce scrotal swelling. Continues to improve Hypotension. Currently still on norepinephrine. We will try to decrease. Increase midodrine. Multiple other medical problems as outlined in past medical history Full Code currently Heparin will suffice for DVT prophylaxis Attestations Medical Necessity Statement*: Needs continued ICU care secondary to need for norepinephrine. Hopefully this can be weaned. Critical Care Time: The high probability of a clinically significant, sudden or life threatening deterioration of the patient's [cardiac, renal, infectious disease,] system(s) r equired my full and direct attention, intervention and personal management. The critical care time is as shown. This time is in addition to time spent performing any reported procedures but includes the following: [x] Data and vital sign review and interpretation [x] Patient assessment, examination and intervention [x] Documentation [x] Medication orders and management Critical Care Time (min): 35 Coding Level of Care Code Critical Care >/= 30 minutes Critical care time (in minutes): 36 The high probability of a clinically significant, sudden or life threatening deterioration, as referenced in this documentation, required my full and direct attention, intervention and personal management. The critical care time shown is in addition to time spent performing any reported separately billable procedures and includes the following: [x] Data and vital sign review and interpretation [x ] Patient assessment, examination and intervention [x] Medication orders and management [x] Patient/Family updates as able [x] Care Coordination and Documentation. Diagnoses Acute hyperkalemia E87.5 Ascites R18.8 Anemia D64.9 Anasarca R60.1 Elevated troponin R79.89 Type 2 diabetes mellitus E11.9 Chest pain R07.9 Abnormal TSH R79.89
[2023-05-10] MEDS: heparin 5,000 unit/mL INJ 1 mL 5000 UNIT SUBCUT (11:43)
[2023-05-10 12:07] LABS: Glucose Point of Care 137 mg/dL (70-110)
--- NOTE | 2023-05-10 15:59 | PM.PN ---
Subjective Subjective: doing well Medications: Reviewed: Yes Vitals/I&O/Wt Last Vital Signs Temp 98.8 F 05/10/23 12:30 Pulse 85 05/10/23 14:00 Resp 12 05/10/23 14:00 BP 107/68 05/10/23 14:00 Pulse Ox 96 05/10/23 14:00 O2 Del Method Nasal Cannula 05/10/23 14:00 O2 Flow Rate 2 05/10/23 08:21 FiO2 30 05/10/23 04:00 05/10/23 05/10/23 05/10/23 06:59 14:59 22:59 Intake Total 916.190 / 3791.487 951.407 / 951.407 Output Total 0 / 0 Balance 916.190 / 3491.487 951.407 / 951.407 Weight last 48 hrs Weight 129.3 kg Physical Exam Narrative: awake , alert HEENT mayo s1s2 rrr PER REPORT CRACKLES GARRY PER REPORT NO EDEMA Data 05/10/23 05:50 05/10/23 05:50 Micro: Microbiology 05/07/23 14:30 Gram Stain - Final Peritoneal Fluid Anaerobic Culture - Preliminary Body Fluid Culture - Preliminary A&P Assessment and plan (1) End-stage renal disease on hemodialysis: Plan 1. End-stage renal disease on dialysis per TTS schedule, HD tomorrow - remains hypotensive and on pressors , 2. Hyperkalemia: s/p kayexylate and low potassium diet 3. Acute on chronic respiratory failure, multifactorial, 4. Anemia: ALBERTO ordered. 5. Liver cirrhosis with ascites and recurrent paracentesis, 6. History of diabetes with diabetic ulcers 7. chest pain : work up pending Patient evaluated using audiovisual cart. Time spent 20 minutes Attestations Medical Necessity Statement*: per medicine Coding Level of Care Code Acute Code for Chg Fwd Diagnoses End-stage renal disease on hemodialysis N18.6; Z99.2
[2023-05-10 17:56] LABS: Glucose Point of Care 114 mg/dL (70-110)
[2023-05-10] MEDS: trazodone 100 mg Tablet PO (21:12)
[2023-05-10 21:18] LABS: Glucose Point of Care 129 mg/dL (70-110)
[2023-05-11] VITALS (90 sets, daily range): BP systolic 74–133; BP diastolic 43–91; PULSE 74–114; RESP 8–29; TEMP 36.4–36.9; O2SAT 73–99
[2023-05-11] MEDS: heparin 5,000 unit/mL INJ 1 mL 5000 UNIT SUBCUT ×3 (01:20→22:24)
[2023-05-11 04:52] LABS: Basophils % 0.5 %; Eosinophils # 0.6 10^3/uL (0.0-0.8); Eosinophils % 9.9 %; Hematocrit 28.5 % (37-53); Lymphocytes # 0.5 10^3/uL (0.8-4.8); Lymphocytes % 7.1 %; Mean Corpuscular HGB Conc 29.1 g/dL (30-55); Mean Corpuscular Hemoglobin 24.7 pg (27-33); Mean Corpuscular Volume 84.8 fl (82-101); Mean Platelet Volume 9.5 fL (7.4-10.4); Monocytes # 0.7 10^3/uL (0.2-0.9); Monocytes % 11.3 %; Neutrophils # 4.53 10^3/uL (1.8-7.7); Neutrophils % 70.9 %; Nucleated Red Blood Cells % 0 %; Platelet Count 149 10^3/cmm (157-399); Red Blood Count 3.36 10^6/uL (3.85-5.65); Red Cell Distribution Width 17.1 % (12.1-15.1); White Blood Count 6.38 10^3/uL (3.29-11.43)
[2023-05-11 05:07] LABS: Anion Gap 18.3 (5-19); Blood Urea Nitrogen 63 mg/dL (6-20); Carbon Dioxide 28 mmol/L (22-29); Chloride 94 mmol/L (98-107); Glucose 111 mg/dL (65-115); Osmolality Calculated 299 mOsm/kg (285-295); Potassium 5.3 mmol/L (3.5-5.1); Sodium 135 mmol/L (136-145)
--- NOTE | 2023-05-11 05:51 | PC.NURSE ---
Patient has been calm, cooperative, and pleasent entire evening. Patient received bath then RT came down to place patient on BIPAP for sleep.
--- NOTE | 2023-05-11 07:37 | PM.PN ---
Documented by User: Judy Calzada 05/11/23 09:12 Subjective Subjective: Today, pt reports continued improvement of his condition. He continues to deny any chest pain and has improvement in his scrotal and penile pain. His main concern is experiencing another episode of chest pain when he receives dialysis. Patient had physical therapy yesterday, and he was concerned about how weak he has become as he struggled to move from bed to chair. He has not other concerns at this time, all other review of systems negative. Vitals/I&O/Wt Last Vital Signs Temp 97.9 F 05/10/23 17:30 Pulse 74 05/11/23 06:00 Resp 12 05/11/23 06:00 BP 88/56 05/11/23 06:00 Pulse Ox 97 05/11/23 06:00 O2 Del Method Nasal Cannula 05/10/23 20:00 O2 Flow Rate 2 05/10/23 20:00 FiO2 30 05/11/23 03:09 05/10/23 05/11/23 05/11/23 22:59 06:59 14:59 Intake Total 479.726 / 1431.133 410 / 1841.133 Output Total 0 / 0 0 / 0 Balance 479.726 / 1431.133 410 / 1841.133 Weight last 48 hrs Weight 129.3 kg Physical Exam Narrative: General: pt is conversant, alert, and cooperative. No distress. On 2 of norepinephrine and 2 L of oxygen via nasal cannula. Neck: supple, no lymphadenopathy. Cardiac: regular rate and rhythm. 2/6 systolic murmur present at left sternal border. Respiratory: lungs clear bilaterally. Abdomen: no guarding, abdominal tenderness. Abdominal distension and fluid wave improved. 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 Multiple ulcerations and discoloration present on right leg. Data 05/11/23 04:28 05/11/23 04:28 Other Labs: Calcium 8.0 No organisms seen as final result of peritoneal fluid. Micro: Microbiology 05/07/23 14:30 Gram Stain - Final Peritoneal Fluid Anaerobic Culture - Preliminary Body Fluid Culture - Preliminary A&P Assessment and plan (1) Acute hyperkalemia: Has increased again to 5.3 Nephrology continues to follow, possible dialysis scheduled for today BUN and creatinine have worsened compared to yesterday CBC, CMP tomorrow (2) Ascites: Abdominal ascites have improved since last paracentesis. Will continue to monitor for future need for additional paracentesis. (3) Anemia: Slightly worsened RBC, Hgb, and Hct since yesterday, likely secondary to ongoing renal dysfunction. Plan to transfuse 1 unit of blood in conjunction with dialysis. Repeat CBC daily. (4) Anasarca: Stable compared to yesterday. Possible dialysis today as ongoing hypotension can tolerate (5) Elevated troponin: Patient had elevated troponin, and chest discomfort during hospital stay, which was managed with heparin drip for 48 hours. It was discontinued yesterday. He continues to report no chest pain. Cardiology consult appreciated and stress test has been ordered by them. Continue aspirin, statin Not a candidate for beta-jag considering hypotension (6) Type 2 diabetes mellitus: On no insulin products currently. Placed on renal dialysis diet, low potassium (7) Chest pain: Patient denies chest pain again this morning. Continue aspirin, statin. Cardiology consult appreciated. New stress test ordered by cardiology today. Will manage accordingly based on results. Last nuclear stress test was approximately 3 years ago and normal with the exception of low EF. Last echocardiogram demonstrates recovery of ejection fraction, with normal EF around 55%. Repeat echocardiogram limited showed normal LV function, poor windows. (8) Abnormal TSH: TSH is high. Consideration for subclinical hypothyroidism versus euthyroid sick. Suggest repeat of TSH, in approximately 4 weeks. Plan Penile pain. pain reported by patient has improved. Will continue to assist with keeping the area cleaned and lubricated as patient says that this helps. Patient reports continued improvement today. Scrotal cellulitis. Erythema and edema of scrotum have improved. Will continue Zosyn to treat empirically for any underlying infection of scrotum and continue conservative measures, such as scrotal elevation to reduce scrotal swelling. Continues to improve Hypotension. Currently still on norepinephrine. We will try to decrease as tolerated. Midodrine up to 10 mg. Add fludricortisone to increase BP so that pt can be tapered off norepinephrine. Multiple other medical problems as outlined in past medical history Full Code currently Heparin will suffice for DVT prophylaxis Coding Level of Care Code 22958 Diagnoses Acute hyperkalemia E87.5 Ascites R18.8 Anemia D64.9 Anasarca R60.1 Elevated troponin R79.89 Type 2 diabetes mellitus E11.9 Chest pain R07.9 Abnormal TSH R79.89 Time Spent (min) 32 Documented by User: Darren Vela MD 05/11/23 09:53 Subjective Subjective: Today, pt reports continued improvement of his condition. He continues to deny any chest pain and has improvement in his scrotal and penile pain. His main concern is experiencing another episode of chest pain when he receives dialysis. Patient had physical therapy yesterday, and he was concerned about how weak he has become as he struggled to move from bed to chair. He has not other concerns at this time, all other review of systems negative. Patient was seen in tandem with the medical student. Patient also reports that he is eager to undergo physical therapy to get stronger to improve his quality of life. Medications: Reviewed: Yes Data 05/11/23 04:28 05/11/23 04:28 A&P Assessment and plan (1) Acute hyperkalemia: Has increased again to 5.3 Nephrology continues to follow, possible dialysis scheduled for today BUN and creatinine have worsened compared to yesterday CBC, CMP tomorrow I believe nephrology is recommending dialysis today. (2) Ascites: (3) Anemia: (4) Anasarca: (5) Elevated troponin: (6) Type 2 diabetes mellitus: (7) Chest pain: Patient denies chest pain again this morning. Continue aspirin, statin. Cardiology consult appreciated. New stress test ordered by cardiology today. Will manage accordingly based on results. Last nuclear stress test was approximately 3 years ago and normal with the exception of low EF. Last echocardiogram demonstrates recovery of ejection fraction, with normal EF around 55%. Repeat echocardiogram limited showed normal LV function, poor windows. See notations under elevated troponin (8) Abnormal TSH: Plan Penile pain. pain reported by patient has improved. Will continue to assist with keeping the area cleaned and lubricated as patient says that this helps. Patient reports continued improvement today. Scrotal cellulitis. Erythema and edema of scrotum have improved. Will continue Zosyn to treat empirically for any underlying infection of scrotum and continue conservative measures, such as scrotal elevation to reduce scrotal swelling. Continues to improve Hypotension. Currently still on norepinephrine. We will try to decrease as tolerated. Midodrine up to 10 mg 3 times daily. Add fludricortisone to increase BP so that pt can be tapered off norepinephrine. This was discussed with nephrology Multiple other medical problems as outlined in past medical history Full Code currently Heparin will suffice for DVT prophylaxis Attestations Medical Necessity Statement*: Needs continued hospitalization for close follow-up of hypotension still requiring norepinephrine, IV antibiotics for cellulitis, further work-up of chest discomfort Diagnoses Acute hyperkalemia E87.5 Ascites R18.8 Anemia D64.9 Anasarca R60.1 Elevated troponin R79.89 Type 2 diabetes mellitus E11.9 Chest pain R07.9 Abnormal TSH R79.89 Time Spent (min) 32
[2023-05-11 07:45] LABS: Glucose Point of Care 110 mg/dL (70-110)
[2023-05-11] MEDS: midodrine 5 mg TABLET 10 MG PO ×3 (08:01→19:22)
[2023-05-11] MEDS: atorvastatin 40 mg Tablet 80 MG PO (08:02)
[2023-05-11] MEDS: polyethylene glycol 3350 Pkt 17 gm PO ×2 (08:02→16:59)
[2023-05-11] MEDS: pantoprazole DR 40 mg Tablet PO (08:02)
[2023-05-11] MEDS: folic acid 1 mg Tablet PO (08:02)
[2023-05-11] MEDS: piperacillin-tazobactam 3.375 GM in sodium chloride 0.9% (plus) 50 ML IV ×2 (08:02→19:23)
[2023-05-11] MEDS: aspirin 81 mg EC Tablet PO (08:02)
[2023-05-11] MEDS: doxycycline 100 mg Tablet PO ×2 (08:02→16:59)
[2023-05-11] MEDS: venlafaxine ER (24HR) 75 mg Capsule PO (08:02)
[2023-05-11] MEDS: gabapentin 100 mg Capsule PO ×3 (08:02→19:23)
[2023-05-11] MEDS: sevelamer 800 mg Tablet 4000 MG PO ×2 (08:09→17:02)
--- NOTE | 2023-05-11 08:29 | PM.PN ---
Subjective Subjective: Akil is much improved this morning. He is sitting up, talking, able to carry on a conversation and is in no distress. He has been dialyzed a couple times since he has been in the hospital. He has had a couple episodes of chest pain either right toward the end of the dialysis run or just after the dialysis run. He remains on 1 mcg/min of norepinephrine. His blood pressure has been much more stable. He is off the heparin. Vitals/I&O/Wt Last Vital Signs Temp 97.9 F 05/10/23 17:30 Pulse 85 05/11/23 08:00 Resp 17 05/11/23 08:00 BP 103/59 05/11/23 08:00 Pulse Ox 93 05/11/23 08:00 O2 Del Method Nasal Cannula 05/11/23 07:45 O2 Flow Rate 2 05/11/23 07:45 FiO2 30 05/11/23 03:09 05/10/23 05/11/23 05/11/23 22:59 06:59 14:59 Intake Total 479.726 / 1431.133 410 / 1841.133 360 / 360 Output Total 0 / 0 0 / 0 Balance 479.726 / 1431.133 410 / 1841.133 360 / 360 Weight last 48 hrs Weight 285 lb 0.923 oz Physical Exam Narrative: GENERAL: In general he is awake alert in no distress and communicative HEENT: Exam within normal limits. NECK: Supple without jugular vein distention. The carotid upstroke is normal without bruits. BACK: Exam normal. LUNGS: Clear. HEART: Regular rate and rhythm. ABDOMEN: Benign without organomegaly or tenderness. EXTREMITIES: No edema. Left lower extremity is surgically absent below the knee NEUROLOGIC: Exam normal. SKIN: Unremarkable. The skin of the right lower extremity below the knee is red, discolored and with multiple areas of eschar and scabs. Data 05/11/23 04:28 05/11/23 04:28 Micro: Microbiology 05/07/23 14:30 Gram Stain - Final Peritoneal Fluid Anaerobic Culture - Preliminary Body Fluid Culture - Preliminary A&P Assessment and plan (1) CHF (congestive heart failure), NYHA class III: (2) Chronic venous insufficiency: (3) ESRD (end stage renal disease) on dialysis: (4) Morbid obesity with BMI of 40.0-44.9, adult: (5) Obstructive sleep apnea: (6) PVD (peripheral vascular disease): (7) Renal cell carcinoma: (8) Restrictive lung disease: (9) Type 2 diabetes mellitus with diabetic polyneuropathy: Qualifiers: Diabetes mellitus [employer] insulin use: unspecified [employer] insulin use status Qualified Code(s): E11.42 - Type 2 diabetes mellitus with diabetic polyneuropathy (10) Chest pain: (11) Elevated troponin: (12) Anasarca: (13) Uremia: (14) Acute and chronic respiratory failure with hypoxia: (15) Ascites: (16) Anemia: (17) History of left below knee amputation: Plan He is much improved today. We will order a Sydnie rodrigueztamibi to see if we can stratify his risk. Attestations Medical Necessity Statement*: Continued hospitalization for management of multiple medical problems listed above and Moderate Time for a total of 35 minutes, includes reviewing past or interval history, examining/interviewing patient, placing orders, counseling patient/family/other support, updating patient/family/other support, discussing plan of care with staff and documenting encounter Diagnoses CHF (congestive heart failure), NYHA class III I50.9 Chronic venous insufficiency I87.2 ESRD (end stage renal disease) on dialysis N18.6; Z99.2 Morbid obesity with BMI of 40.0-44.9, adult E66.01; Z68.41 Obstructive sleep apnea G47.33 PVD (peripheral vascular disease) I73.9 Renal cell carcinoma C64.9 Restrictive lung disease J98.4 Type 2 diabetes mellitus with diabetic polyneuropathy E11.42 Diabetes mellitus [employer] insulin use: unspecified fdc insulin use status Chest pain R07.9 Elevated troponin R79.89 Anasarca R60.1 Uremia N19 Acute and chronic respiratory failure with hypoxia J96.21 Ascites R18.8 Anemia D64.9 History of left below knee amputation Z89.512
--- NOTE | 2023-05-11 09:10 | PM.PN ---
Subjective Subjective: BP remains low on midodrine Medications: Reviewed: Yes Vitals/I&O/Wt Last Vital Signs Temp 97.9 F 05/10/23 17:30 Pulse 85 05/11/23 08:00 Resp 17 05/11/23 08:00 BP 103/59 05/11/23 08:00 Pulse Ox 93 05/11/23 08:00 O2 Del Method Nasal Cannula 05/11/23 07:45 O2 Flow Rate 2 05/11/23 07:45 FiO2 30 05/11/23 03:09 05/10/23 05/11/23 05/11/23 22:59 06:59 14:59 Intake Total 479.726 / 1431.133 410 / 1841.133 360 / 360 Output Total 0 / 0 0 / 0 Balance 479.726 / 1431.133 410 / 1841.133 360 / 360 Weight last 48 hrs Weight 129.3 kg Physical Exam Narrative: awake , alert HEENT mayo s1s2 rrr PER REPORT CRACKLES GARRY PER REPORT NO EDEMA Data 05/11/23 04:28 05/11/23 04:28 Micro: Microbiology 05/07/23 14:30 Gram Stain - Final Peritoneal Fluid Anaerobic Culture - Preliminary Body Fluid Culture - Preliminary A&P Assessment and plan (1) End-stage renal disease on hemodialysis: Plan 1. End-stage renal disease on dialysis per TTS schedule, HD today , low BFR due to hypotension - remains hypotensive and on pressors , 2. Hyperkalemia: s/p kayexylate and low potassium diet 3. Acute on chronic respiratory failure, multifactorial, 4. Anemia: ALBERTO ordered.plan for PRBC transfusion 5. Liver cirrhosis with ascites and recurrent paracentesis, 6. History of diabetes with diabetic ulcers 7. chest pain : work up pending 8. Hypotension : midodrine added , trail of fludrocortisone planned Patient evaluated using audiovisual cart. Time spent 20 minutes Attestations Medical Necessity Statement*: per medicine Coding Level of Care Code Acute Code for Chg Fwd Diagnoses End-stage renal disease on hemodialysis N18.6; Z99.2
[2023-05-11] MEDS: fludrocortisone 0.1 mg Tablet PO (09:24)
[2023-05-11] MEDS: hyDROXYzine 25 mg Capsule PO (11:09)
[2023-05-11] MEDS: heparin, porcine 1,000 unit/mL INJ 10 mL 1000 UNIT IV (11:10)
--- NOTE | 2023-05-11 14:31 | PC.SOCIAL ---
IMM Update pg 2 of IMM updated and reviewed w/ patient. Copy provided and copy dated, initialed and placed in chart.
[2023-05-11 17:01] LABS: Glucose Point of Care 112 mg/dL (70-110)
[2023-05-11] MEDS: oxyCODONE 5 mg IR Tab/Cap PO (19:22)
[2023-05-11] MEDS: trazodone 100 mg Tablet PO (19:23)
[2023-05-12] VITALS (88 sets, daily range): BP systolic 71–120; BP diastolic 38–77; PULSE 74–109; RESP 11–34; TEMP 36.8–37; O2SAT 85–98
[2023-05-12 03:09] LABS: Basophils % 0.6 %; Eosinophils # 0.6 10^3/uL (0.0-0.8); Eosinophils % 9.4 %; Hematocrit 31.1 % (37-53); Lymphocytes # 0.4 10^3/uL (0.8-4.8); Mean Corpuscular HGB Conc 28.6 g/dL (30-55); Mean Corpuscular Hemoglobin 24.8 pg (27-33); Mean Corpuscular Volume 86.6 fl (82-101); Mean Platelet Volume 9.8 fL (7.4-10.4); Monocytes # 0.7 10^3/uL (0.2-0.9); Monocytes % 10.4 %; Neutrophils # 5.02 10^3/uL (1.8-7.7); Neutrophils % 73.5 %; Nucleated Red Blood Cells % 0 %; Platelet Count 140 10^3/cmm (157-399); Red Blood Count 3.59 10^6/uL (3.85-5.65); Red Cell Distribution Width 16.7 % (12.1-15.1); White Blood Count 6.83 10^3/uL (3.29-11.43)
[2023-05-12 03:34] LABS: Alanine Aminotransferase 12 U/L (0-41); Albumin Level 2.6 g/dL (3.5-5.2); Alkaline Phosphatase 55 U/L (40-130); Anion Gap 15.9 (5-19); Aspartate Amino Transferase 10 U/L (0-40); Blood Urea Nitrogen 50 mg/dL (6-20); Calcium 7.7 mg/dL (8.5-10.5); Carbon Dioxide 29 mmol/L (22-29); Chloride 92 mmol/L (98-107); Globulin 3.7 g/dL (1.3-4.6); Glomerular Filtration Rate 9.7 mL/min (90-130); Glucose 178 mg/dL (65-115); Magnesium 1.9 mg/dL (1.7-2.3); Osmolality Calculated 292 mOsm/kg (285-295); Potassium 4.9 mmol/L (3.5-5.1); Sodium 132 mmol/L (136-145); Total Bilirubin 0.4 mg/dL (0.15-1.2); Total Protein 6.3 g/dL (6.6-8.7)
[2023-05-12] MEDS: polyethylene glycol 3350 Pkt 17 gm PO ×2 (08:00→17:50)
[2023-05-12] MEDS: venlafaxine ER (24HR) 75 mg Capsule PO (08:00)
[2023-05-12] MEDS: folic acid 1 mg Tablet PO (08:01)
[2023-05-12] MEDS: doxycycline 100 mg Tablet PO ×2 (08:01→17:50)
[2023-05-12] MEDS: atorvastatin 40 mg Tablet 80 MG PO (08:01)
[2023-05-12] MEDS: pantoprazole DR 40 mg Tablet PO (08:01)
[2023-05-12] MEDS: fludrocortisone 0.1 mg Tablet PO (08:01)
[2023-05-12] MEDS: midodrine 5 mg TABLET 10 MG PO ×3 (08:01→20:21)
[2023-05-12] MEDS: aspirin 81 mg EC Tablet PO (08:02)
[2023-05-12] MEDS: piperacillin-tazobactam 3.375 GM in sodium chloride 0.9% (plus) 50 ML IV ×2 (08:02→20:21)
[2023-05-12] MEDS: sevelamer 800 mg Tablet 4000 MG PO ×3 (08:02→17:50)
[2023-05-12] MEDS: gabapentin 100 mg Capsule PO ×3 (08:02→20:19)
[2023-05-12] MEDS: oxyCODONE 5 mg IR Tab/Cap PO ×2 (09:08→19:13)
--- NOTE | 2023-05-12 09:20 | PM.PN ---
Subjective Subjective: Still on Levophed. Patient denies chest pain overnight. Denies nausea, emesis, fevers, or chills. Reports oral intake is ok. Discussed plan of care and he is in agreement. Vitals/I&O/Wt Last Vital Signs Temp 98.6 F 05/12/23 08:00 Pulse 80 05/12/23 08:00 Resp 12 05/12/23 08:00 BP 102/58 05/12/23 08:00 Pulse Ox 90 05/12/23 08:00 O2 Del Method Nasal Cannula 05/12/23 07:58 O2 Flow Rate 2 05/12/23 07:58 FiO2 30 05/11/23 22:53 05/11/23 05/12/23 05/12/23 22:59 06:59 14:59 Intake Total 560 / 1729.911 150 / 1879.911 480 / 480 Balance 560 / 1729.911 150 / 1879.911 480 / 480 Physical Exam Narrative: General: Patient is awake and alert. Conversational. Head: Normocephalic. Atraumatic. EOM intact. Neck: No JVD. Cardiovascular: Soft BP on norepi. No gallops. Systolic murmur. 3-4+ edema in BLE. Lungs: Breath sounds slightly diminished in bilateral bases, no use of accessory muscles, no crackles or wheezes. Skin: No jaundice. No rashes. Abdomen: Normal bowel sounds, abdomen soft and nontender. Genito Urinary: Scrotum is swollen. Extremities: No cyanosis or clubbing. Sp L BKA. Musculoskeletal: Neurological: No myoclonus. Data 05/12/23 02:59 05/12/23 02:59 Micro: Microbiology 05/07/23 05:50 Blood Culture - Final Blood NO GROWTH AFTER 5 DAYS 05/07/23 02:36 Blood Culture - Final Blood NO GROWTH AFTER 5 DAYS 05/07/23 14:30 Gram Stain - Final Peritoneal Fluid Anaerobic Culture - Preliminary Body Fluid Culture - Preliminary A&P Assessment and plan (1) Shock: Undifferentiated shock Still on Leveophed, wean off as tolerated Continue midodrine Continue Florinef Continue Zosyn and doxycycline for now Follow cultures Supportive care (2) Chest pain: Denies chest pain overnight Telemetry monitoring Continue ASA and statin Cardiology following Plan for stress test on Sixto 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 S/p pRBC transfusion Nephro following, appreciate recommendations and HD management (4) Type 2 diabetes mellitus: Does not appear to be on treatment Monitor BS (5) Anasarca: Volume control with HD (6) Elevated troponin: C/w myocardial injury Cardiology managing asnoted above (7) CHF (congestive heart failure), NYHA class III: Volume control via HD Strict I&Os Daily weights Daily assesment of volume (8) Acute hyperkalemia: Resolved w/ K 4.9 Continue to monitor (9) Abnormal TSH: Will need repeat TFT in 4-6 weeks (10) Constipation: Continue current bowel regimen Additional PRN options ordered Plan DVT ppx: Heparin Code: Full Attestations Medical Necessity Statement*: Patient is in shock requiring ongoing hospitalization for IV vasopressors, IV abx, cardiology expertise, telemetry, and supportive care. Critical Care Time: The high probability of a clinically significant, sudden or life threatening deterioration of the patient's cardiovascular, circulatory system(s) required my full and direct attention, intervention and personal management. The critical care time is as shown. This time is in addition to time spent performing any reported procedures but includes the following: [x] Data and vital sign review and interpretation [x] Patient assessment, examination and intervention [x] Documentation [x] Medication orders and management Critical Care Time (min): 35 Coding Level of Care Code Acute Code for Chg Fwd Diagnoses Shock R57.9 Chest pain R07.9 End-stage renal disease on hemodialysis N18.6; Z99.2 Type 2 diabetes mellitus E11.9 Anasarca R60.1 Elevated troponin R79.89 CHF (congestive heart failure), NYHA class III I50.9 Acute hyperkalemia E87.5 Abnormal TSH R79.89 Constipation K59.00
--- NOTE | 2023-05-12 09:25 | PM.PN ---
Subjective Subjective: on levophed Medications: Reviewed: Yes Vitals/I&O/Wt Last Vital Signs Temp 98.6 F 05/12/23 08:00 Pulse 80 05/12/23 08:00 Resp 12 05/12/23 08:00 BP 102/58 05/12/23 08:00 Pulse Ox 90 05/12/23 08:00 O2 Del Method Nasal Cannula 05/12/23 07:58 O2 Flow Rate 2 05/12/23 07:58 FiO2 30 05/11/23 22:53 05/11/23 05/12/23 05/12/23 22:59 06:59 14:59 Intake Total 560 / 1729.911 150 / 1879.911 480 / 480 Balance 560 / 1729.911 150 / 1879.911 480 / 480 Physical Exam Narrative: awake , alert HEENT mayo s1s2 rrr PER REPORT CRACKLES GARRY PER REPORT NO EDEMA Data 05/12/23 02:59 05/12/23 02:59 Micro: Microbiology 05/07/23 05:50 Blood Culture - Final Blood NO GROWTH AFTER 5 DAYS 05/07/23 02:36 Blood Culture - Final Blood NO GROWTH AFTER 5 DAYS 05/07/23 14:30 Gram Stain - Final Peritoneal Fluid Anaerobic Culture - Preliminary Body Fluid Culture - Preliminary A&P Assessment and plan (1) End-stage renal disease on hemodialysis: Plan 1. End-stage renal disease on dialysis per TTS schedule, s/p HD on sunday , HD tomorrow if BP improves , low BFR due to hypotension - remains hypotensive and on pressors - weaming down 2. Hyperkalemia: s/p kayexylate and low potassium diet 3. Acute on chronic respiratory failure, multifactorial, 4. Anemia: ALBERTO ordered.plan for PRBC transfusion 5. Liver cirrhosis with ascites and recurrent paracentesis, 6. History of diabetes with diabetic ulcers 7. chest pain : work up pending 8. Hypotension : midodrine added , trail of fludrocortisone Patient evaluated using audiovisual cart. Time spent 20 minutes Attestations Medical Necessity Statement*: per medicine team Coding Level of Care Code Acute Code for Chg Fwd Diagnoses End-stage renal disease on hemodialysis N18.6; Z99.2
--- NOTE | 2023-05-12 09:49 | PC.NURSE ---
Rounded with telenephrologist Dr. Jeter, received verbal orders to hold levophed until patients map is around 50.
[2023-05-12] MEDS: bisacodyl 5 mg Tablet PO (10:10)
[2023-05-12] MEDS: heparin 5,000 unit/mL INJ 1 mL 5000 UNIT SUBCUT ×2 (10:10→22:55)
--- NOTE | 2023-05-12 11:24 | PM.PN ---
Subjective Subjective: Cardiology coverage 53-year-old white male with a history of end-stage renal disease, on hemodialysis, presented with complaints of chest pain or shortness of breath. He was found to be in congestive heart failure with elevated troponin Ts. Echocardiogram revealed normal ejection fraction. He was hypotensive with elevated troponin T. Patient was on vasopressors up until early this morning when it was discontinued. Currently the blood pressure is 102/60 mm Hg. The EKG revealed sinus rhythm with a short MD interval. Low voltage complexes. Diffuse nonspecific ST-T changes. Some features of right ventricular hypertrophy. echocardiogram was suboptimal quality. LV ejection fraction appeared to be this patient has a history of hypertension, diabetes, renal cell carcinoma, COPD, recurrent CHF,, sleep apnea, osteomyelitis of the left foot, status post below-knee amputation, dialysis graft in the left arm, status post angioplasty of the stenosis in the graft. Medications: Medication Review Details: Current Medications Acetaminophen (Acetaminophen 325 Mg Tablet) 650 mg PO Q6H PRN PRN Reason: Mild/Mod Pain Or Temp >/= 101 Last Admin: 05/07/23 20:59 Dose: 650 mg Albuterol/Ipratropium (Ipratropium-Albuterol 3 Ml Neb) 3 ml INHALATION Q4H PRN PRN Reason: SHORTNESS OF BREATH Aspirin (Aspirin 81 Mg Ec Tablet) 81 mg PO DAILY [facility] Last Admin: 05/12/23 08:02 Dose: 81 mg Atorvastatin Calcium (Atorvastatin 40 Mg Tablet) 80 mg PO DAILY [facility] Last Admin: 05/12/23 08:01 Dose: 80 mg Bisacodyl (Bisacodyl 5 Mg Tablet) 5 mg PO DAILY PRN PRN Reason: CONSTIPATION Last Admin: 05/12/23 10:10 Dose: 5 mg Bisacodyl (Bisacodyl 10 Mg Supp) 10 mg MD DAILY PRN PRN Reason: Constip Doxycycline Monohydrate (Doxycycline 100 Mg Tablet) 100 mg PO BID [facility]; Protocol Last Admin: 05/12/23 08:01 Dose: 100 mg Fludrocortisone Acetate (Fludrocortisone 0.1 Mg Tablet) 0.1 mg PO DAILY [facility] Last Admin: 05/12/23 08:01 Dose: 0.1 mg Folic Acid (Folic Acid 1 Mg Tablet) 1 mg PO DAILY [facility] Last Admin: 05/12/23 08:01 Dose: 1 mg Gabapentin (Gabapentin 100 Mg Capsule) 100 mg PO TID [facility] Last Admin: 05/12/23 08:02 Dose: 100 mg Heparin Sodium (Porcine) (Heparin, Porcine 1,000 Unit/Ml Inj 10 Ml) 10,000 unit INTRACATH PRN PRN; Protocol PRN Reason: FOR DIALYSIS USE ONLY Heparin Sodium (Porcine) (Heparin, Porcine 1,000 Unit/Ml Inj 10 Ml) 1,000 unit IV PRN PRN; Protocol PRN Reason: FOR DIALYSIS USE ONLY Heparin Sodium (Porcine) (Heparin 5,000 Unit/Ml Inj 1 Ml) 5,000 unit SUBCUT Q12H [facility] Last Admin: 05/12/23 10:10 Dose: 5,000 unit Hydroxyzine Pamoate (Hydroxyzine 25 Mg Capsule) 25 mg PO QID PRN PRN Reason: ANXIETY Last Admin: 05/11/23 11:09 Dose: 25 mg Albumin Human (Albumin) 12.5 gm in 50 mls @ 60 mls/hr IV PRN PRN PRN Reason: Hypotension and/or symptomatic Last Infusion: 05/08/23 19:00 Dose: Infused Sodium Chloride (Sodium Chloride 0.9%) 1,000 mls @ 0 mls/hr IV .Q0M PRN PRN Reason: hypotension or symptomatic Piperacillin Sod/Tazobactam (Sod 3.375 gm/ Sodium Chloride) 50 mls @ 12.5 mls/hr IV Q12H [facility]; Protocol Last Admin: 05/12/23 08:02 Dose: 12.5 mls/hr Norepinephrine Bitartrate 4 mg (/ Dextrose) 254 mls @ 0 mls/hr IV .Q0M [facility]; Protocol Last Titration: 05/12/23 09:51 Dose: 0 mcg/min, 0 mls/hr Albumin Human (Albumin) 12.5 gm in 50 mls @ 60 mls/hr IV PRN PRN PRN Reason: Hypotension and/or symptomatic Sodium Chloride (Sodium Chloride 0.9%) 1,000 mls @ 0 mls/hr IV .Q0M PRN PRN Reason: hypotension or symptomatic Lactulose (Lactulose Oral Liq 20 Gm/30 Ml Udc) 10 gm PO DAILY PRN PRN Reason: Constipation Midodrine (Midodrine 5 Mg Tablet) 10 mg PO TID [facility] Last Admin: 05/12/23 08:01 Dose: 10 mg Naloxone HCl (Naloxone 0.4 Mg/Ml Sdv) 0.1 mg IVP Q2M PRN PRN Reason: OPIATERV Ondansetron HCl (Ondansetron 2 Mg/Ml Sdv 2 Ml) 4 mg IVP Q8H PRN PRN Reason: vomiting, or N/V if npo Last Admin: 05/07/23 21:32 Dose: 4 mg Oxycodone HCl (Oxycodone 5 Mg Ir Tab/Cap) 5 mg PO Q4H PRN PRN Reason: MODERATE PAIN Last Admin: 05/12/23 09:08 Dose: 5 mg Pantoprazole Sodium (Pantoprazole Dr 40 Mg Tablet) 40 mg PO DAILY [facility] Last Admin: 05/12/23 08:01 Dose: 40 mg Polyethylene Glycol (Polyethylene Glycol 3350 Pkt 17 Gm) 17 gm PO BID [facility] Last Admin: 05/12/23 08:00 Dose: 17 gm Sevelamer Carbonate (Sevelamer 800 Mg Tablet) 4,000 mg PO TIDWM [facility] Last Admin: 05/12/23 08:02 Dose: 4,000 mg Sevelamer Carbonate (Sevelamer 800 Mg Tablet) 3,200 mg PO BID PRN PRN Reason: WITH SNACKS Trazodone HCl (Trazodone 100 Mg Tablet) 100 mg PO BEDTIME [facility] Last Admin: 05/11/23 19:23 Dose: 100 mg Venlafaxine HCl (Venlafaxine Er (24hr) 75 Mg Capsule) 75 mg PO DAILY [facility] Last Admin: 05/12/23 08:00 Dose: 75 mg Vitamin A/Vitamin D (Vitamin A & D Oint) 1 applic TOPICAL QID PRN PRN Reason: DRYNESS Last Admin: 05/09/23 09:01 Dose: 1 applic Vitals/I&O/Wt Last Vital Signs Temp 98.6 F 05/12/23 08:00 Pulse 82 05/12/23 10:00 Resp 13 05/12/23 10:00 BP 91/65 05/12/23 10:00 Pulse Ox 92 05/12/23 10:00 O2 Del Method Nasal Cannula 05/12/23 07:58 O2 Flow Rate 2 05/12/23 07:58 FiO2 30 05/11/23 22:53 05/11/23 05/12/23 05/12/23 22:59 06:59 14:59 Intake Total 560 / 2579.911 150 / 2729.911 628.844 / 628.844 Balance 560 / 498.911 150 / 648.911 628.844 / 628.844 Weight last 48 hrs Weight 290 lb 9.108 oz Physical Exam Narrative: GENERAL: The patient is alert and oriented times three. Not in any acute distress. HEENT: Moderate pallor. No icterus or lymphadenopathy.Oral cavity: There are no mucous membrane lesions. NECK: Trachea appears to be central. No masses noted. No JVD or thyromegaly appreciated. RESPIRATORY: Chest is symmetrical. No intercostals muscle retraction or any accessory muscle activation. There is no chest wall tenderness. Breath sounds are heard bilaterally. No rales or rhonchi heard. No evidence of any consolidation. BREASTS: Deferred. HEART: The heart sounds are normal. No S3 or S4. Short systolic murmur in the left sternal border. No diastolic murmurs.. No pericardial rub ABDOMEN: Obese and nontender. Minimal abdominal wall edema is present in the lower abdomen. Bowel sounds are normally heard. : Deferred. Scrotal edema present RECTAL: Deferred. LYMPHATIC: No lymphadenopathy in the cervical region EXTREMITIES: Features of chronic venous stasis and multiple healing superficial ulcers with the blackish scabs. Below-knee amputation on the left side MUSCULOSKELETAL: No acute joint deformities or swelling SKIN: Features of chronic venous stasis and healing superficial ulcers in the right leg NEUROPSYCHIATRIC: The patient is alert and oriented x3. Appears to be in a good mood. No tremors or rigidity noted. Data 05/12/23 02:59 05/12/23 02:59 Other Labs: Laboratory Last Values WBC 6.83 10^3/uL (3.29-11.43) 05/12/23 02:59 RBC 3.59 10^6/uL (3.85-5.65) L 05/12/23 02:59 Hgb 8.90 g/dL (11.27-16.99) L 05/12/23 02:59 Hct 31.1 % (37-53) L 05/12/23 02:59 MCV 86.6 fl (82-101) 05/12/23 02:59 MCH 24.8 pg (27-33) L 05/12/23 02:59 MCHC 28.6 g/dL (30-55) L 05/12/23 02:59 RDW 16.7 % (12.1-15.1) H 05/12/23 02:59 Plt Count 140 10^3/cmm (157-399) L 05/12/23 02:59 MPV 9.8 fL (7.4-10.4) 05/12/23 02:59 Neut % (Auto) 73.5 % 05/12/23 02:59 Lymph % (Auto) 6.0 % 05/12/23 02:59 [place] % (Auto) 10.4 % 05/12/23 02:59 Eos % (Auto) 9.4 % 05/12/23 02:59 Baso % (Auto) 0.6 % 05/12/23 02:59 Neut # (Auto) 5.02 10^3/uL (1.8-7.7) 05/12/23 02:59 Lymph # (Auto) 0.4 10^3/uL (0.8-4.8) L 05/12/23 02:59 [place] # (Auto) 0.7 10^3/uL (0.2-0.9) 05/12/23 02:59 Eos # (Auto) 0.6 10^3/uL (0.0-0.8) 05/12/23 02:59 Baso # (Auto) 0.0 10^3/uL (0.0-0.1) 05/12/23 02:59 Nucleated RBC % (auto) 0 % 05/12/23 02:59 Nucleated RBCs # 0.0 /100WBC 05/12/23 02:59 Differential Comment Yes 05/07/23 14:30 APTT 68.5 SECONDS (23.9-36.7) H 05/10/23 05:50 Sodium 132 mmol/L (136-145) L 05/12/23 02:59 Potassium 4.9 mmol/L (3.5-5.1) 05/12/23 02:59 Chloride 92 mmol/L (98-107) L 05/12/23 02:59 Carbon Dioxide 29 mmol/L (22-29) 05/12/23 02:59 Anion Gap 15.9 (5-19) 05/12/23 02:59 BUN 50 mg/dL (6-20) H 05/12/23 02:59 Creatinine 6.1 mg/dL (0.7-1.2) H* 05/12/23 02:59 GFR Calculation 9.7 mL/min (90-130) L 05/12/23 02:59 Glucose 178 mg/dL (65-115) H 05/12/23 02:59 POC Glucose 112 mg/dL (70-110) H 05/11/23 16:57 Estimat Average Glucose 105 05/07/23 02:36 Hemoglobin A1c 5.3 % (4.0-6.0) 05/07/23 02:36 Calculated Osmolality 292 mOsm/kg (285-295) 05/12/23 02:59 Lactic Acid 1.6 mmol/L (0.5-2.2) 05/07/23 02:36 Calcium 7.7 mg/dL (8.5-10.5) L 05/12/23 02:59 Phosphorus 12.1 mg/dL (2.5-4.5) H* 05/07/23 02:36 Magnesium 1.9 mg/dL (1.7-2.3) 05/12/23 02:59 Total Bilirubin 0.4 mg/dL (0.15-1.2) 05/12/23 02:59 AST 10 U/L (0-40) 05/12/23 02:59 ALT 12 U/L (0-41) 05/12/23 02:59 Alkaline Phosphatase 55 U/L (40-130) 05/12/23 02:59 Troponin T Baseline 1013 ng/L (0-15) H* 05/08/23 12:47 Troponin T 120 Minute 1104 ng/L (0-15) H 05/08/23 15:17 Delta Troponin T 91 ABS# (0-10) H* 05/08/23 15:17 Troponin T Hi Sens 6Hr 1153 ng/L (0-15) H 05/08/23 19:15 Troponin T Hi Sens 6Hr Delta 140 ng/L (0-12) H* 05/08/23 19:15 C-Reactive Protein 62.4 mg/L (0.0-4.9) H 05/07/23 05:50 NT-Pro-B Natriuret Pep 55632 pg/mL (0-125) H 05/07/23 02:36 Total Protein 6.3 g/dL (6.6-8.7) L 05/12/23 02:59 Albumin 2.6 g/dL (3.5-5.2) L 05/12/23 02:59 Globulin 3.7 g/dL (1.3-4.6) 05/12/23 02:59 Triglycerides 134 mg/dL (0-150) 05/07/23 02:36 Cholesterol 90 mg/dL (0-200) 05/07/23 02:36 LDL Cholesterol, Calc 26 mg/dL (50-129) L 05/07/23 02:36 HDL Cholesterol 37 mg/dL (60-100) L 05/07/23 02:36 LDL/HDL Ratio 0.70 RATIO (0.00-3.22) 05/07/23 02:36 Cholesterol/HDL Ratio 2.43 mg/dL (1.0-5.00) 05/07/23 02:36 Procalcitonin 0.48 ng/mL (0-0.5) 05/07/23 05:50 TSH 11.62 uIU/mL (0.27-4.20) H 05/07/23 02:36 Random Cortisol 14.54 ug/dL (2.47-19.5) 05/09/23 04:31 Fluid Color Pale yellow 05/07/23 14:30 Fluid Appearance Cloudy 05/07/23 14:30 Fluid Specific Grav 1.010 05/07/23 14:30 Fluid pH 8.0 05/07/23 14:30 Fluid WBC 310 /uL 05/07/23 14:30 Fluid RBC 2.000 10^3/uL 05/07/23 14:30 Fld Polynuclear WBCs # 0.034 05/07/23 14:30 Fld Polynuclear WBCs % 10.900 % 05/07/23 14:30 Fl Mononucl WBCs #(Auto) 0.276 05/07/23 14:30 Fl Mononuclear % Auto 89.100 % 05/07/23 14:30 Fld Crystal Laterality Ascities 05/07/23 14:30 Fluid Glucose 86.0 mg/dL 05/07/23 14:30 Fluid Total Protein 3.7 g/dL 05/07/23 14:30 Fluid Albumin 1.7 g/dL 05/07/23 14:30 Fluid LDH 123 U/L 05/07/23 14:30 Fluid Amylase 13 U/L 05/07/23 14:30 Fluid Alk Phosphatase 44 IU/L 05/07/23 14:30 Fluid Cholesterol 31 mg/dL (0-200) 05/07/23 14:30 Fluid Triglycerides 114 mg/dL (0-150) 05/07/23 14:30 Fluid Uric Acid 6 mg/dL 05/07/23 14:30 Hep Bs Antigen Non-reactive (Nonreactive) 05/07/23 02:36 Hep Bs Antibody 49.7 (11.5-1000) 05/07/23 02:36 Hep B Core Total Ab Non-reactive (Nonreactive) 05/07/23 02:36 Blood Type A Positive 05/08/23 13:38 Rho(D) Type Positive 05/08/23 13:38 Antibody Screen Negative 05/08/23 13:38 Crossmatch See Detail 05/08/23 13:38 Micro: Microbiology 05/07/23 05:50 Blood Culture - Final Blood NO GROWTH AFTER 5 DAYS 05/07/23 02:36 Blood Culture - Final Blood NO GROWTH AFTER 5 DAYS 05/07/23 14:30 Gram Stain - Final Peritoneal Fluid Anaerobic Culture - Preliminary Body Fluid Culture - Preliminary A&P Assessment and plan (1) Elevated troponin I level: The etiology is not clear. EKG changes are nonspecific. The limited 2D echocardiogram reveals fairly normal ejection fraction. Possibility of a type II IA is a strong consideration. For further evaluation of the coronary status, a Myocardial perfusion imaging would be appropriate. His prolonged episodes of chest pain are are somewhat atypical for coronary ischemia. However in view of his multiple risk factors, this is a strong consideration. (2) CHF (congestive heart failure), NYHA class III: Clinically seems to be compensated. Patient is on hemodialysis. Management as per the nephrology. (3) Shock: Patient was on the vasopressors. This is currentlytapered off. (4) End-stage renal disease on hemodialysis: Patient is on hemodialysis. Management as per the nephrology service. (5) Type 2 diabetes mellitus: Aggressive management of the diabetes would be appropriate at this point. (6) Acute and chronic respiratory failure with hypoxia: Respiratory status is currently stable. (7) Morbid obesity with BMI of 40.0-44.9, adult: Continue the lifestyle modifications. Plan We may go ahead and do a Myocard perfusion imaging on Sunday to further evaluate his coronary status and decide on further management. This was discussed in detail and the patient understood It well. Apparently the patient had a Myocardial perfusion imaging in 2019 and was essentially unremarkable. Attestations Medical Necessity Statement*: Patient requires continued hospital stay for close monitoring and further management Coding Level of Care Code 47706 Diagnoses Elevated troponin I level R79.89 CHF (congestive heart failure), NYHA class III I50.9 Shock R57.9 End-stage renal disease on hemodialysis N18.6; Z99.2 Type 2 diabetes mellitus E11.9 Acute and chronic respiratory failure with hypoxia J96.21 Morbid obesity with BMI of 40.0-44.9, adult E66.01; Z68.41
[2023-05-12] MEDS: ondansetron 2 mg/ML SDV 2 mL 4 MG IVP (16:09)
[2023-05-12] MEDS: trazodone 100 mg Tablet PO (20:19)
[2023-05-12 21:50] LABS: Glucose Point of Care 128 mg/dL (70-110)
[2023-05-13] VITALS (53 sets, daily range): BP systolic 75–113; BP diastolic 43–86; PULSE 74–94; RESP 13–33; TEMP 36–36.7; O2SAT 87–98
[2023-05-13] MEDS: oxyCODONE 5 mg IR Tab/Cap PO (04:38)
[2023-05-13 05:20] LABS: Basophils # 0.1 10^3/uL (0.0-0.1); Basophils % 0.7 %; Eosinophils # 0.6 10^3/uL (0.0-0.8); Eosinophils % 8.3 %; Hematocrit 31.3 % (37-53); Lymphocytes # 0.6 10^3/uL (0.8-4.8); Lymphocytes % 8.5 %; Mean Corpuscular HGB Conc 29.1 g/dL (30-55); Mean Corpuscular Hemoglobin 24.6 pg (27-33); Mean Corpuscular Volume 84.6 fl (82-101); Mean Platelet Volume 10.2 fL (7.4-10.4); Monocytes # 0.8 10^3/uL (0.2-0.9); Monocytes % 10.7 %; Neutrophils # 5.07 10^3/uL (1.8-7.7); Neutrophils % 71.5 %; Nucleated Red Blood Cells % 0 %; Platelet Count 151 10^3/cmm (157-399); Red Cell Distribution Width 16.9 % (12.1-15.1); White Blood Count 7.09 10^3/uL (3.29-11.43)
[2023-05-13 05:37] LABS: Procalcitonin 0.99 ng/mL (0-0.5)
[2023-05-13 05:39] LABS: Alanine Aminotransferase 10 U/L (0-41); Albumin Level 2.5 g/dL (3.5-5.2); Alkaline Phosphatase 60 U/L (40-130); Anion Gap 16.1 (5-19); Aspartate Amino Transferase 10 U/L (0-40); Blood Urea Nitrogen 61 mg/dL (6-20); C Reactive Protein 59.6 mg/L (0.0-4.9); Calcium 8.1 mg/dL (8.5-10.5); Carbon Dioxide 27 mmol/L (22-29); Chloride 89 mmol/L (98-107); Globulin 4.3 g/dL (1.3-4.6); Glomerular Filtration Rate 8.3 mL/min (90-130); Glucose 80 mg/dL (65-115); Magnesium 2.1 mg/dL (1.7-2.3); Osmolality Calculated 280 mOsm/kg (285-295); Phosphorus 6.6 mg/dL (2.5-4.5); Potassium 5.1 mmol/L (3.5-5.1); Sodium 127 mmol/L (136-145); Total Bilirubin 0.4 mg/dL (0.15-1.2); Total Protein 6.8 g/dL (6.6-8.7)
[2023-05-13] MEDS: midodrine 5 mg TABLET 10 MG PO ×3 (08:26→21:09)
[2023-05-13] MEDS: gabapentin 100 mg Capsule PO ×3 (08:27→21:09)
[2023-05-13] MEDS: doxycycline 100 mg Tablet PO ×2 (08:27→17:44)
[2023-05-13] MEDS: atorvastatin 40 mg Tablet 80 MG PO (08:27)
[2023-05-13] MEDS: aspirin 81 mg EC Tablet PO (08:27)
[2023-05-13] MEDS: folic acid 1 mg Tablet PO (08:28)
[2023-05-13] MEDS: fludrocortisone 0.1 mg Tablet PO (08:28)
[2023-05-13] MEDS: pantoprazole DR 40 mg Tablet PO (08:28)
[2023-05-13] MEDS: venlafaxine ER (24HR) 75 mg Capsule PO (08:28)
[2023-05-13] MEDS: sevelamer 800 mg Tablet 4000 MG PO ×3 (08:29→21:09)
[2023-05-13] MEDS: piperacillin-tazobactam 3.375 GM in sodium chloride 0.9% (plus) 50 ML IV ×2 (08:30→21:10)
[2023-05-13] MEDS: epoetin alfa 1000 Unit/0.05 mL (ESRD) 20000 UNIT SUBCUT (08:31)
[2023-05-13] MEDS: polyethylene glycol 3350 Pkt 17 gm PO ×2 (08:32→21:09)
[2023-05-13 08:51] LABS: Glucose Point of Care 102 mg/dL (70-110)
--- NOTE | 2023-05-13 10:50 | PM.PN ---
Subjective Subjective: doing well Medications: Reviewed: Yes Vitals/I&O/Wt Last Vital Signs Temp 98 F 05/13/23 08:00 Pulse 85 05/13/23 09:08 Resp 16 05/13/23 09:08 BP 95/64 05/13/23 08:30 Pulse Ox 94 05/13/23 09:08 O2 Del Method Nasal Cannula 05/13/23 09:08 O2 Flow Rate 2 05/13/23 09:08 FiO2 28 05/13/23 00:00 05/12/23 05/13/23 05/13/23 22:59 06:59 14:59 Intake Total 560 / 1478.844 290 / 1768.844 400 / 400 Balance 560 / 1478.844 290 / 1768.844 400 / 400 Weight last 48 hrs Weight 131.8 kg Physical Exam Narrative: awake , alert HEENT mayo s1s2 rrr PER REPORT CRACKLES GARRY PER REPORT NO EDEMA Data 05/13/23 04:17 05/13/23 04:17 Micro: Microbiology 05/07/23 14:30 Gram Stain - Final Peritoneal Fluid Anaerobic Culture - Preliminary Body Fluid Culture - Preliminary 05/07/23 05:50 Blood Culture - Final Blood NO GROWTH AFTER 5 DAYS 05/07/23 02:36 Blood Culture - Final Blood NO GROWTH AFTER 5 DAYS A&P Assessment and plan (1) End-stage renal disease on hemodialysis: Plan 1. End-stage renal disease on dialysis per TTS schedule, s/p HD on sunday , HD today -off pressors 2. Hyperkalemia: s/p kayexylate and low potassium diet 3. Acute on chronic respiratory failure, multifactorial, 4. Anemia: ALBERTO ordered.plan for PRBC transfusion 5. Liver cirrhosis with ascites and recurrent paracentesis, 6. History of diabetes with diabetic ulcers 7. chest pain : work up pending 8. Hypotension : midodrine added , trail of fludrocortisone Patient evaluated using audiovisual cart. Time spent 20 minutes Attestations Medical Necessity Statement*: per medicine team Coding Level of Care Code Acute Code for Chg Fwd Diagnoses End-stage renal disease on hemodialysis N18.6; Z99.2
--- NOTE | 2023-05-13 12:24 | PM.PN ---
Subjective Subjective: Akil reports he had an ok night. Denies chest pain. Inquires about care regarding his lower extremity wounds. He reports he usually follows in wound care. He has multiple ulcers and his BKA site has yet to fully heal. There is an image on his phone of the BKA site that he shared taken this morning. Endorses abdominal distention, progressively worsening. States he requires a paracentesis about every 2 weeks. Constipation reportedly improved. Denies fevers or chills. Vitals/I&O/Wt Last Vital Signs Temp 98 F 05/13/23 08:00 Pulse 85 05/13/23 09:08 Resp 16 05/13/23 09:08 BP 95/64 05/13/23 08:30 Pulse Ox 94 05/13/23 09:08 O2 Del Method Nasal Cannula 05/13/23 09:08 O2 Flow Rate 2 05/13/23 09:08 FiO2 28 05/13/23 00:00 05/12/23 05/13/23 05/13/23 22:59 06:59 14:59 Intake Total 560 / 1478.844 290 / 1768.844 400 / 400 Balance 560 / 1478.844 290 / 1768.844 400 / 400 Weight last 48 hrs Weight 131.8 kg Physical Exam Narrative: General: Patient is awake and alert. Conversational. Head: Normocephalic. Atraumatic. EOM intact. Neck: No JVD. Cardiovascular: SNo gallops. Systolic murmur. 3-4+ edema in BLE. Lungs: Breath sounds slightly diminished in bilateral bases, no use of accessory muscles, no crackles or wheezes. Skin: No jaundice. No rashes. Multiple wounds on lower extremities. Abdomen: Normal bowel sounds, abdomen soft and nontender. Genito Urinary: Scrotum is swollen, similiar to yesterdays exam. Extremities: No cyanosis or clubbing. Sp L BKA. Neurological: No myoclonus. Data 05/13/23 04:17 05/13/23 04:17 Micro: Microbiology 05/07/23 14:30 Gram Stain - Final Peritoneal Fluid Anaerobic Culture - Preliminary Body Fluid Culture - Final A&P Assessment and plan (1) Shock: Undifferentiated shock Off Levophed now Continue midodrine Continue Florinef Continue Zosyn and doxycycline Follow cultures Supportive care (2) Chest pain: Telemetry monitoring Continue ASA and statin Cardiology following NPO at midnight for stress test on Sunday 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 S/p pRBC transfusion Nephro following, appreciate recommendations and HD management (4) Type 2 diabetes mellitus: Does not appear to be on treatment Monitor BS (5) Anasarca: Anasarca, ascites, volume overload Request paracentesis this week, order placed (6) Elevated troponin: C/w myocardial injury Cardiology managing as noted above (7) CHF (congestive heart failure), NYHA class III: Volume control via HD Strict I&Os Daily weights Daily assessment of volume (8) Abnormal TSH: Will need repeat TFT in 4-6 weeks (9) Constipation: Resolved Current current bowel regimen Plan DVT ppx: Heparin Code: Full Attestations Medical Necessity Statement*: Patient requires ongoing hospitalization for IV abx, stress testing, telemetry, and supportive care. Coding Level of Care Code Acute Code for [facility] Diagnoses Shock R57.9 Chest pain R07.9 End-stage renal disease on hemodialysis N18.6; Z99.2 Type 2 diabetes mellitus E11.9 Anasarca R60.1 Elevated troponin R79.89 CHF (congestive heart failure), NYHA class III I50.9 Abnormal TSH R79.89 Constipation K59.00
[2023-05-13 12:33] LABS: Glucose Point of Care 116 mg/dL (70-110)
[2023-05-13] MEDS: heparin 5,000 unit/mL INJ 1 mL 5000 UNIT SUBCUT ×2 (12:35→22:16)
--- NOTE | 2023-05-13 13:16 | PC.NURSE ---
After an hour of being up to a chair, patients right leg and foot which is in a dependent position, has become more red and swollen. Toes bordering on a purple color. Patient does not report any additional pain, pulse is intact, cap refill less than 1 second. Patient states that this occaisonally occurs at home. Nurse alerted Dr Corey and received orders for a lactic acid. Will raise leg after her is done eating and will continue to monitor.
[2023-05-13 14:28] LABS: Lactate (Lactic Acid level) 1.3 mmol/L (0.5-2.2)
--- NOTE | 2023-05-13 14:51 | PM.PN ---
Subjective Subjective: The patient is feeling okay. He is sitting up in the chair. Remains afebrile. Blood pressure seems to be stable for the last more than 24 hours. Medications: Medication Review Details: Current Medications Acetaminophen (Acetaminophen 325 Mg Tablet) 650 mg PO Q6H PRN PRN Reason: Mild/Mod Pain Or Temp >/= 101 Last Admin: 05/07/23 20:59 Dose: 650 mg Albuterol/Ipratropium (Ipratropium-Albuterol 3 Ml Neb) 3 ml INHALATION Q4H PRN PRN Reason: SHORTNESS OF BREATH Aspirin (Aspirin 81 Mg Ec Tablet) 81 mg PO DAILY [facility] Last Admin: 05/13/23 08:27 Dose: 81 mg Atorvastatin Calcium (Atorvastatin 40 Mg Tablet) 80 mg PO DAILY [facility] Last Admin: 05/13/23 08:27 Dose: 80 mg Bisacodyl (Bisacodyl 5 Mg Tablet) 5 mg PO DAILY PRN PRN Reason: CONSTIPATION Last Admin: 05/12/23 10:10 Dose: 5 mg Bisacodyl (Bisacodyl 10 Mg Supp) 10 mg MT DAILY PRN PRN Reason: Constip Doxycycline Monohydrate (Doxycycline 100 Mg Tablet) 100 mg PO BID [facility]; Protocol Last Admin: 05/13/23 08:27 Dose: 100 mg Fludrocortisone Acetate (Fludrocortisone 0.1 Mg Tablet) 0.1 mg PO DAILY [facility] Last Admin: 05/13/23 08:28 Dose: 0.1 mg Folic Acid (Folic Acid 1 Mg Tablet) 1 mg PO DAILY [facility] Last Admin: 05/13/23 08:28 Dose: 1 mg Gabapentin (Gabapentin 100 Mg Capsule) 100 mg PO TID [facility] Last Admin: 05/13/23 14:46 Dose: 100 mg Heparin Sodium (Porcine) (Heparin, Porcine 1,000 Unit/Ml Inj 10 Ml) 10,000 unit INTRACATH PRN PRN; Protocol PRN Reason: FOR DIALYSIS USE ONLY Heparin Sodium (Porcine) (Heparin, Porcine 1,000 Unit/Ml Inj 10 Ml) 1,000 unit IV PRN PRN; Protocol PRN Reason: FOR DIALYSIS USE ONLY Heparin Sodium (Porcine) (Heparin 5,000 Unit/Ml Inj 1 Ml) 5,000 unit SUBCUT Q12H [facility] Last Admin: 05/13/23 12:35 Dose: 5,000 unit Hydroxyzine Pamoate (Hydroxyzine 25 Mg Capsule) 25 mg PO QID PRN PRN Reason: ANXIETY Last Admin: 05/11/23 11:09 Dose: 25 mg Piperacillin Sod/Tazobactam (Sod 3.375 gm/ Sodium Chloride) 50 mls @ 12.5 mls/hr IV Q12H [facility]; Protocol Last Admin: 05/13/23 08:30 Dose: 12.5 mls/hr Albumin Human (Albumin) 12.5 gm in 50 mls @ 60 mls/hr IV PRN PRN PRN Reason: Hypotension and/or symptomatic Last Admin: 05/13/23 16:38 Dose: 60 mls/hr Sodium Chloride (Sodium Chloride 0.9%) 1,000 mls @ 0 mls/hr IV .Q0M PRN PRN Reason: hypotension or symptomatic Lactulose (Lactulose Oral Liq 20 Gm/30 Ml Udc) 10 gm PO DAILY PRN PRN Reason: Constipation Midodrine (Midodrine 5 Mg Tablet) 10 mg PO TID [facility] Last Admin: 05/13/23 14:46 Dose: 10 mg Naloxone HCl (Naloxone 0.4 Mg/Ml Sdv) 0.1 mg IVP Q2M PRN PRN Reason: OPIATERV Ondansetron HCl (Ondansetron 2 Mg/Ml Sdv 2 Ml) 4 mg IVP Q8H PRN PRN Reason: vomiting, or N/V if npo Last Admin: 05/12/23 16:09 Dose: 4 mg Oxycodone HCl (Oxycodone 5 Mg Ir Tab/Cap) 5 mg PO Q4H PRN PRN Reason: MODERATE PAIN Last Admin: 05/13/23 04:38 Dose: 5 mg Pantoprazole Sodium (Pantoprazole Dr 40 Mg Tablet) 40 mg PO DAILY [facility] Last Admin: 05/13/23 08:28 Dose: 40 mg Polyethylene Glycol (Polyethylene Glycol 3350 Pkt 17 Gm) 17 gm PO BID [facility] Last Admin: 05/13/23 08:32 Dose: 17 gm Sevelamer Carbonate (Sevelamer 800 Mg Tablet) 4,000 mg PO TIDWM [facility] Last Admin: 05/13/23 12:35 Dose: 4,000 mg Sevelamer Carbonate (Sevelamer 800 Mg Tablet) 3,200 mg PO BID PRN PRN Reason: WITH SNACKS Trazodone HCl (Trazodone 100 Mg Tablet) 100 mg PO BEDTIME [facility] Last Admin: 05/12/23 20:19 Dose: 100 mg Venlafaxine HCl (Venlafaxine Er (24hr) 75 Mg Capsule) 75 mg PO DAILY [facility] Last Admin: 05/13/23 08:28 Dose: 75 mg Vitamin A/Vitamin D (Vitamin A & D Oint) 1 applic TOPICAL QID PRN PRN Reason: DRYNESS Last Admin: 05/09/23 09:01 Dose: 1 applic Vitals/I&O/Wt Last Vital Signs Temp 98.0 F 05/13/23 13:00 Pulse 82 05/13/23 14:00 Resp 28 H 05/13/23 13:00 BP 105/63 05/13/23 13:00 Pulse Ox 91 05/13/23 13:00 O2 Del Method Nasal Cannula 05/13/23 13:00 O2 Flow Rate 1 05/13/23 13:00 FiO2 28 05/13/23 00:00 05/12/23 05/13/23 05/13/23 22:59 06:59 14:59 Intake Total 560 / 1478.844 290 / 1768.844 600 / 600 Balance 560 / 1478.844 290 / 1768.844 600 / 600 Physical Exam Narrative: GENERAL: The patient is alert and oriented times three. Not in any acute distress. HEENT: Moderate pallor. No icterus or lymphadenopathy.Oral cavity: There are no mucous membrane lesions. NECK: Trachea appears to be central. No masses noted. No JVD or thyromegaly appreciated. RESPIRATORY: Chest is symmetrical. No intercostals muscle retraction or any accessory muscle activation. There is no chest wall tenderness. Breath sounds are heard bilaterally. No rales or rhonchi heard. No evidence of any consolidation. BREASTS: Deferred. HEART: The heart sounds are normal. No S3 or S4. Short systolic murmur in the left sternal border. No diastolic murmurs.. No pericardial rub ABDOMEN: Obese and nontender. Minimal abdominal wall edema is present in the lower abdomen. Bowel sounds are normally heard. : Deferred. Scrotal edema present RECTAL: Deferred. LYMPHATIC: No lymphadenopathy in the cervical region EXTREMITIES: Features of chronic venous stasis and multiple healing superficial ulcers with the blackish scabs, on the right side. Below-knee amputation on the left side MUSCULOSKELETAL: No acute joint deformities or swelling SKIN: Features of chronic venous stasis and healing superficial ulcers in the right leg NEUROPSYCHIATRIC: The patient is alert and oriented x3. Appears to be in a good mood. No tremors or rigidity noted. Data 05/13/23 04:17 05/13/23 04:17 Other Labs: Laboratory Last Values WBC 7.09 10^3/uL (3.29-11.43) 05/13/23 04:17 RBC 3.70 10^6/uL (3.85-5.65) L 05/13/23 04:17 Hgb 9.10 g/dL (11.27-16.99) L 05/13/23 04:17 Hct 31.3 % (37-53) L 05/13/23 04:17 MCV 84.6 fl (82-101) 05/13/23 04:17 MCH 24.6 pg (27-33) L 05/13/23 04:17 MCHC 29.1 g/dL (30-55) L 05/13/23 04:17 RDW 16.9 % (12.1-15.1) H 05/13/23 04:17 Plt Count 151 10^3/cmm (157-399) L 05/13/23 04:17 MPV 10.2 fL (7.4-10.4) 05/13/23 04:17 Neut % (Auto) 71.5 % 05/13/23 04:17 Lymph % (Auto) 8.5 % 05/13/23 04:17 [place] % (Auto) 10.7 % 05/13/23 04:17 Eos % (Auto) 8.3 % 05/13/23 04:17 Baso % (Auto) 0.7 % 05/13/23 04:17 Neut # (Auto) 5.07 10^3/uL (1.8-7.7) 05/13/23 04:17 Lymph # (Auto) 0.6 10^3/uL (0.8-4.8) L 05/13/23 04:17 [place] # (Auto) 0.8 10^3/uL (0.2-0.9) 05/13/23 04:17 Eos # (Auto) 0.6 10^3/uL (0.0-0.8) 05/13/23 04:17 Baso # (Auto) 0.1 10^3/uL (0.0-0.1) 05/13/23 04:17 Nucleated RBC % (auto) 0 % 05/13/23 04:17 Nucleated RBCs # 0.0 /100WBC 05/13/23 04:17 Differential Comment Yes 05/07/23 14:30 APTT 68.5 SECONDS (23.9-36.7) H 05/10/23 05:50 Sodium 127 mmol/L (136-145) L 05/13/23 04:17 Potassium 5.1 mmol/L (3.5-5.1) 05/13/23 04:17 Chloride 89 mmol/L (98-107) L 05/13/23 04:17 Carbon Dioxide 27 mmol/L (22-29) 05/13/23 04:17 Anion Gap 16.1 (5-19) 05/13/23 04:17 BUN 61 mg/dL (6-20) H 05/13/23 04:17 Creatinine 7.0 mg/dL (0.7-1.2) H* 05/13/23 04:17 GFR Calculation 8.3 mL/min (90-130) L 05/13/23 04:17 Glucose 80 mg/dL (65-115) 05/13/23 04:17 POC Glucose 116 mg/dL (70-110) H 05/13/23 12:24 Estimat Average Glucose 105 05/07/23 02:36 Hemoglobin A1c 5.3 % (4.0-6.0) 05/07/23 02:36 Calculated Osmolality 280 mOsm/kg (285-295) L 05/13/23 04:17 Lactic Acid 1.6 mmol/L (0.5-2.2) 05/07/23 02:36 Lactate 1.3 mmol/L (0.5-2.2) 05/13/23 13:23 Calcium 8.1 mg/dL (8.5-10.5) L 05/13/23 04:17 Phosphorus 6.6 mg/dL (2.5-4.5) H 05/13/23 04:17 Magnesium 2.1 mg/dL (1.7-2.3) 05/13/23 04:17 Total Bilirubin 0.4 mg/dL (0.15-1.2) 05/13/23 04:17 AST 10 U/L (0-40) 05/13/23 04:17 ALT 10 U/L (0-41) 05/13/23 04:17 Alkaline Phosphatase 60 U/L (40-130) 05/13/23 04:17 Troponin T Baseline 1013 ng/L (0-15) H* 05/08/23 12:47 Troponin T 120 Minute 1104 ng/L (0-15) H 05/08/23 15:17 Delta Troponin T 91 ABS# (0-10) H* 05/08/23 15:17 Troponin T Hi Sens 6Hr 1153 ng/L (0-15) H 05/08/23 19:15 Troponin T Hi Sens 6Hr Delta 140 ng/L (0-12) H* 05/08/23 19:15 C-Reactive Protein 59.6 mg/L (0.0-4.9) H 05/13/23 04:17 NT-Pro-B Natriuret Pep 33280 pg/mL (0-125) H 05/07/23 02:36 Total Protein 6.8 g/dL (6.6-8.7) 05/13/23 04:17 Albumin 2.5 g/dL (3.5-5.2) L 05/13/23 04:17 Globulin 4.3 g/dL (1.3-4.6) 05/13/23 04:17 Triglycerides 134 mg/dL (0-150) 05/07/23 02:36 Cholesterol 90 mg/dL (0-200) 05/07/23 02:36 LDL Cholesterol, Calc 26 mg/dL (50-129) L 05/07/23 02:36 HDL Cholesterol 37 mg/dL (60-100) L 05/07/23 02:36 LDL/HDL Ratio 0.70 RATIO (0.00-3.22) 05/07/23 02:36 Cholesterol/HDL Ratio 2.43 mg/dL (1.0-5.00) 05/07/23 02:36 Procalcitonin 0.99 ng/mL (0-0.5) H 05/13/23 04:17 TSH 11.62 uIU/mL (0.27-4.20) H 05/07/23 02:36 Random Cortisol 14.54 ug/dL (2.47-19.5) 05/09/23 04:31 Fluid Color Pale yellow 05/07/23 14:30 Fluid Appearance Cloudy 05/07/23 14:30 Fluid Specific Grav 1.010 05/07/23 14:30 Fluid pH 8.0 05/07/23 14:30 Fluid WBC 310 /uL 05/07/23 14:30 Fluid RBC 2.000 10^3/uL 05/07/23 14:30 Fld Polynuclear WBCs # 0.034 05/07/23 14:30 Fld Polynuclear WBCs % 10.900 % 05/07/23 14:30 Fl Mononucl WBCs #(Auto) 0.276 05/07/23 14:30 Fl Mononuclear % Auto 89.100 % 05/07/23 14:30 Fld Crystal Laterality Ascities 05/07/23 14:30 Fluid Glucose 86.0 mg/dL 05/07/23 14:30 Fluid Total Protein 3.7 g/dL 05/07/23 14:30 Fluid Albumin 1.7 g/dL 05/07/23 14:30 Fluid LDH 123 U/L 05/07/23 14:30 Fluid Amylase 13 U/L 05/07/23 14:30 Fluid Alk Phosphatase 44 IU/L 05/07/23 14:30 Fluid Cholesterol 31 mg/dL (0-200) 05/07/23 14:30 Fluid Triglycerides 114 mg/dL (0-150) 05/07/23 14:30 Fluid Uric Acid 6 mg/dL 05/07/23 14:30 Hep Bs Antigen Non-reactive (Nonreactive) 05/07/23 02:36 Hep Bs Antibody 49.7 (11.5-1000) 05/07/23 02:36 Hep B Core Total Ab Non-reactive (Nonreactive) 05/07/23 02:36 Blood Type A Positive 05/08/23 13:38 Rho(D) Type Positive 05/08/23 13:38 Antibody Screen Negative 05/08/23 13:38 Crossmatch See Detail 05/08/23 13:38 Micro: Microbiology 05/07/23 14:30 Gram Stain - Final Peritoneal Fluid Anaerobic Culture - Preliminary Body Fluid Culture - Final A&P Assessment and plan (1) Elevated troponin I level: The etiology is not clear. EKG changes are nonspecific. The limited 2D echocardiogram reveals fairly normal ejection fraction. Possibility of a type II MA is a strong consideration. For further evaluation of the coronary status, a Myocardial perfusion imaging would be appropriate. His prolonged episodes of chest pain is somewhat atypical for coronary ischemia. However in view of his multiple risk factors, this is strong consideration. We will go ahead and schedule for the Dobutamine /sestamibi/sestamibi stress test tomorrow (2) CHF (congestive heart failure), NYHA class III: Clinically seems to be compensated. Patient is on hemodialysis. Management as per the nephrology. (3) Shock: Patient was on the vasopressors. This is currentlytapered off. The vital signs are stable at this point. (4) End-stage renal disease on hemodialysis: Patient is on hemodialysis. Management as per the nephrology service. (5) Type 2 diabetes mellitus: Aggressive management of the diabetes would be appropriate at this point. (6) Acute and chronic respiratory failure with hypoxia: Respiratory status is currently stable. (7) Morbid obesity with BMI of 40.0-44.9, adult: Continue the lifestyle modifications. Plan Scheduled for a dobutamine/sestamibi/sestamibi stress test tomorrow. May continue on the current medication as it is for the time being. Based on the clinical progress, further recommendations will be made. Attestations Medical Necessity Statement*: Patient requires continued hospital stay for close monitoring and further management Coding Level of Care Code 74325 Diagnoses Elevated troponin I level R79.89 CHF (congestive heart failure), NYHA class III I50.9 Shock R57.9 End-stage renal disease on hemodialysis N18.6; Z99.2 Type 2 diabetes mellitus E11.9 Acute and chronic respiratory failure with hypoxia J96.21 Morbid obesity with BMI of 40.0-44.9, adult E66.01; Z68.41
[2023-05-13] MEDS: heparin, porcine 1,000 unit/mL INJ 10 mL 1000 UNIT IV (16:37)
[2023-05-13] MEDS: albumin 12.5 GM/50 ML VIAL IV ×3 (16:38→18:57)
--- NOTE | 2023-05-13 17:41 | ECG_ITS ---
[facility] Test Date: 2023-05-14 Pat Name: Akil Velasco Department: Room: ICU12 Gender: Male [employer] Application Architect: Shani Latham : 1970 Requested By: Shirin Kendrick Order Number: [id number] MD: Shirin Kendrick M.D. Interpretive Statements NAME OF STUDY: DOBUTAMINE SESTAMIBI STRESS TEST INDICATION: Elevated; Elevated Troponin, PATIENT DID NOT MEET TARGET HR, INJECTED AT 71% OF TARGET HR (120) ORDERED BY PHYSICIAN PROCEDURE: At the baseline, the blood pressure was 88/50 with a heart rate of 87. The electrocardiogram showed sinus rhythm with poor R wave progression. Nonspecific ST-T changes in lead III, aVF, V5 and V6. The dobutamine was infused over a period of 14 minutes. The maximum heart rate obtained was 122 (73% of the maximum predicted heart rate). The blood pressure at that time was 101/55 mmHg. The patient did not have any chest pain or any significant electrocardiogram changes with the dobutamine infusion. The physical examination remained unchanged. No arrhythmias were seen on the monitor. Sestamibi injected at the peak heart rate. Patient had some chest discomfort/pain with a peak exercise. The symptoms gradually subsided in the recovery phase. During the recovery phase, the patient did not have any specific symptoms. The blood pressure at the end of the recovery phase was 73/54 with a heart rate of 103 per minute. CONCLUSION: 1. Nonspecific EKG changes with the dobutamine infusion 2. Dobutamine induced chest pain. 3. The blood pressure has been fluctuating throughout the procedure. 4. Sestamibi/Sestamibi perfusion scan pending; see separate report. Electronically Signed On 05-18-2023 14:16:12 CDT by Shirin Kendrick M.D. [email or web address]
--- NOTE | 2023-05-13 17:52 | PC.NURSE ---
1800 dose of renvela delayed. Patient is getting dialysis at this time and blood pressure is 85/62. Renvela to be given with meals, patient can't eat while on dialysis with a low blood pressure.
--- NOTE | 2023-05-13 18:25 | PC.NURSE ---
Shift SUmmary: Unventful shift. Patient was up to a chair for about 4 hours, had to slide over to bariatric recliner as he was too weak to stand or transition. Right foot had become red with toes becoming purple today. Discoloration resolved after placing warm blankets. Dialysis has been started near the end of shift and is ongoing, goal is to remove 2L.
[2023-05-13 18:27] LABS: Glucose Point of Care 126 mg/dL (70-110)
[2023-05-13] MEDS: trazodone 100 mg Tablet PO (21:09)
[2023-05-13] MEDS: ondansetron 2 mg/ML SDV 2 mL 4 MG IVP (22:16)
[2023-05-14] VITALS (45 sets, daily range): BP systolic 76–130; BP diastolic 42–88; PULSE 78–108; RESP 9–40; O2SAT 81–100
[2023-05-14 04:19] LABS: Basophils % 0.3 %; Eosinophils # 0.5 10^3/uL (0.0-0.8); Eosinophils % 8.1 %; Hematocrit 30.1 % (37-53); Lymphocytes # 0.6 10^3/uL (0.8-4.8); Lymphocytes % 9.4 %; Mean Corpuscular HGB Conc 28.9 g/dL (30-55); Mean Corpuscular Hemoglobin 24.9 pg (27-33); Mean Platelet Volume 9.4 fL (7.4-10.4); Monocytes # 0.6 10^3/uL (0.2-0.9); Monocytes % 9.4 %; Neutrophils # 4.49 10^3/uL (1.8-7.7); Neutrophils % 72.3 %; Nucleated Red Blood Cells % 0 %; Platelet Count 128 10^3/cmm (157-399)
[2023-05-14 04:42] LABS: Albumin Level 2.9 g/dL (3.5-5.2); Anion Gap 15.8 (5-19); Blood Urea Nitrogen 44 mg/dL (6-20); Calcium 8.2 mg/dL (8.5-10.5); Carbon Dioxide 29 mmol/L (22-29); Chloride 95 mmol/L (98-107); Glomerular Filtration Rate 10.7 mL/min (90-130); Glucose 95 mg/dL (65-115); Phosphorus 4.9 mg/dL (2.5-4.5); Potassium 4.8 mmol/L (3.5-5.1); Sodium 135 mmol/L (136-145)
[2023-05-14 07:12] LABS: Glucose Point of Care 84 mg/dL (70-110)
--- NOTE | 2023-05-14 08:00 | US_ITS ---
WS: [id number] ULTRASOUND-GUIDED THERAPEUTIC PARACENTESIS Procedure, risks, and complications have been explained to the patient. Consent is obtained. Utilizing aseptic technique and 1% buffered lidocaine, a small dermatome was made through which a 5 F rench Yueh catheter was inserted. Approximately 8000 ml of clear peritoneal fluid was obtained witho ut difficulty. No complications encountered. IMPRESSION: Uncomplicated paracentesis yielding 8000 ml of peritoneal fluid.
--- NOTE | 2023-05-14 08:00 | NMCV_ITS ---
NM igor perf SPECT r/s* [id number] Akil Velasco Age: 53 Gender: M : 1970 Exam Date: 05/14/2023 09:40 Ordering Phys: Shirin Kendrick MD ([email or web address]) Technologist: BECCA Ritchie Exam Location: [facility] Indications: CHEST PAIN STRESS TEST [facility] IMAGE PROTOCOL Rest/Stress 1 Dobutamine Day Radiopharmaceutical Dose (mCi) Administration Site Administered by Rest: Tc-99m 10.9 IV Demetri Jay, MEDICAL BILLER CODER Sestamibi Stress:Tc-99m 33.0 IV Demetri Jay, MEDICAL BILLER CODER Sestamibi Rest: 14-May-2023 60 Discovery 630 Stress: 14-May-2023 30 Discovery 630 Radiopharmaceutical was injected at 71 % maximum heart rate. Supine position only as patient was unable to lay prone. SPECT RESULTS Technical Quality: Good Raw Data Analysis: Normal Image Corrections: No attenuation or motion correction applied Summed Stress Score: 9 Summed Rest Score: 6 Summed Difference Score: 6 PERFUSION FINDINGS Small to moderate area of moderately decreased tracer uptake was noted in the mid and apical anterior, apical septal and in the apex. Some reversibility was noted in this regions at rest. Small area of slightly decreased tracer uptake was noted in the basal inferolateral region with some reversibility. FUNCTIONAL RESULTS (calculated via Gated SPECT) Stress Image LV EF (%): 49 Stress EDV (mL):222 TID: 1.45 Stress ESV (mL):113 FUNCTIONAL FINDINGS: Segmental wall motion analysis revealed severe diffuse hypokinesia of the septum and the LV apex. The transient ischemic dilatation ratio was 1.45 IMPRESSIONS 1. Myocardial perfusion imaging revealing small to moderate area of reversible defect in the anterior , septal and apical regions, suggesting ischemia in distribution of the left anterior descending artery. A small area of some reversibility in the basal inferolateral region suggesting ischemia in the distribution of the circumflex artery. 2. Slightly diminished LV ejection fraction of 49%. 3. LV wall motion analysis revealed a severe diffuse hypokinesia of the septum and the LV apex. 4. Moderately dilated LV cavity with end-systolic volume of 113 ml. No similar previous studies are available for comparison Dr Shirin Kendrick MD FACC (Electronically Signed) Final Date: 14 May 2023 17:01 S
[2023-05-14] MEDS: fludrocortisone 0.1 mg Tablet PO (09:03)
[2023-05-14] MEDS: aspirin 81 mg EC Tablet PO (09:03)
[2023-05-14] MEDS: pantoprazole DR 40 mg Tablet PO (09:04)
[2023-05-14] MEDS: gabapentin 100 mg Capsule PO ×3 (09:04→20:26)
[2023-05-14] MEDS: doxycycline 100 mg Tablet PO ×2 (09:05→17:21)
[2023-05-14] MEDS: venlafaxine ER (24HR) 75 mg Capsule PO (09:05)
[2023-05-14] MEDS: midodrine 5 mg TABLET 10 MG PO ×3 (09:06→20:26)
[2023-05-14] MEDS: atorvastatin 40 mg Tablet 80 MG PO (09:06)
[2023-05-14] MEDS: polyethylene glycol 3350 Pkt 17 gm PO ×2 (09:07→17:23)
[2023-05-14] MEDS: piperacillin-tazobactam 3.375 GM in sodium chloride 0.9% (plus) 50 ML IV ×2 (09:07→20:26)
[2023-05-14] MEDS: folic acid 1 mg Tablet PO (09:10)
--- NOTE | 2023-05-14 09:51 | PC.NURSE ---
Patient to [facility] at this time. Alert and oriented times four, 3 LNC, on monitor. Patient handed off to Santa.
--- NOTE | 2023-05-14 09:56 | PM.PN ---
Subjective Subjective: s/p hD yesterday Medications: Reviewed: Yes Vitals/I&O/Wt Last Vital Signs Temp 96.8 F L 05/13/23 21:44 Pulse 93 05/14/23 09:00 Resp 29 H 05/14/23 09:00 BP 123/77 05/14/23 09:00 Pulse Ox 94 05/14/23 09:00 O2 Del Method Nasal Cannula 05/14/23 09:00 O2 Flow Rate 3 05/14/23 09:00 FiO2 28 05/13/23 00:00 05/13/23 05/14/23 05/14/23 22:59 06:59 14:59 Intake Total 1150 / 1750 50 / 1800 0 / 0 Output Total 2684 / 2684 Balance -1534 / -934 50 / -884 0 / 0 Weight last 48 hrs Weight 135.8 kg Physical Exam Narrative: awake , alert HEENT mayo s1s2 rrr PER REPORT CRACKLES GARRY PER REPORT NO EDEMA Data 05/15/23 04:40 05/15/23 04:40 Micro: Microbiology 05/07/23 14:30 Gram Stain - Final Peritoneal Fluid Anaerobic Culture - Preliminary Body Fluid Culture - Final A&P Assessment and plan (1) End-stage renal disease on hemodialysis: Plan 1. End-stage renal disease on dialysis per TTS schedule, s/p HD yesterday -off pressors 2. Hyperkalemia: s/p kayexylate and low potassium diet 3. Acute on chronic respiratory failure, multifactorial, 4. Anemia: ALBERTO ordered.plan for PRBC transfusion 5. Liver cirrhosis with ascites and recurrent paracentesis, 6. History of diabetes with diabetic ulcers 7. chest pain : work up pending 8. Hypotension : midodrine added , trail of fludrocortisone Patient evaluated using audiovisual cart. Time spent 20 minutes Attestations Medical Necessity Statement*: per mediice team Coding Level of Care Code Acute Code for Chg Fwd Diagnoses End-stage renal disease on hemodialysis N18.6; Z99.2
[2023-05-14] MEDS: DOBUTtamine 200 MG in sodium chloride 0.9% 34 ML 20.37 MG IV (10:29)
[2023-05-14] MEDS: atropine 0.1 mg/mL Syr 10 mL 0.5 MG IVP ×2 (10:46→10:51)
--- NOTE | 2023-05-14 10:46 | PC.NURSE ---
Stress Test Dr. Kendrick notified during Dobutamine stress test Dobutamine at 60mcg/kg/min. Had given 0.5mg atropine per protocol. Patient HR remains only at 71% of target HR (120bpm). Pt BP began to drop 70/80s systolic and dobutamine was stopped. Received verbal orders from Dr. Kendrick to give additional 0.5mg IV atropine .
--- NOTE | 2023-05-14 10:51 | PC.NURSE ---
Stress test note Additional 0.5mg atropine IV was given. Pt HR was unresponsive and remained at 120bpm, 71% of target HR. Dr. Kendrick notified via phone again and received verbal orders to inject with nuclear medicine .
--- NOTE | 2023-05-14 11:19 | PC.SOCIAL ---
IMM Update Pg. 2 of IMM updated and reviewed with patient. Copy provided.
--- NOTE | 2023-05-14 11:30 | PC.NURSE ---
Stress test Note Pt complaining of chest pain. Yelling and screaming make it stop . HR remains 119. BP remains 80 systolic. 5mg esmolol given IV X 2 doses per protocol. (SEE MAR) Pt left in extended recovery, ending BP 86/57 and HR 98. Pt denies chest pain at end of recovery, complains of feet cramping.
--- NOTE | 2023-05-14 15:22 | P.PN_ITS ---
Subjective Subjective: No acute events overnight. Today morning seen after stress test. Patient is stating he is hungry. States feeling better. States he does not think he has scrotal infection but does have scrotal swelling which he attributes to his chronic edema. Does state he has been cutting short his dialysis sessions because of chest pain during dialysis. Otherwise denies any nausea, vomiting, headache. Blood work appreciated. Medications: Reviewed: Yes Vitals/I&O/Wt Last Vital Signs Temp 96.8 F L 05/13/23 21:44 Pulse 92 05/14/23 12:30 Resp 18 05/14/23 12:30 BP 100/69 05/14/23 12:30 Pulse Ox 96 05/14/23 12:30 O2 Del Method Nasal Cannula 05/14/23 12:30 O2 Flow Rate 3 05/14/23 12:30 FiO2 28 05/13/23 00:00 05/14/23 05/14/23 05/14/23 06:59 14:59 22:59 Intake Total 50 / 1800 74.445 / 74.445 Output Total 8000 / 8000 Balance 50 / -884 74.445 / 74.445 -8000 / -7925.555 Weight last 48 hrs Weight 135.8 kg Physical Exam Narrative: General: Patient is awake and alert. Conversational. Head: Normocephalic. Atraumatic. EOM intact. Neck: No JVD. Cardiovascular: SNo gallops. Systolic murmur. 3-4+ edema in BLE. Lungs: Breath sounds slightly diminished in bilateral bases, no use of accessory muscles, no crackles or wheezes. Skin: No jaundice. No rashes. Multiple wounds on lower extremities. Abdomen: Normal bowel sounds, abdomen soft and nontender. Distended Genito Urinary: Scrotum is swollen, similiar to yesterdays exam. Extremities: No cyanosis or clubbing. Sp L BKA. Neurological: No myoclonus. Data 05/14/23 03:32 05/14/23 03:32 Micro: Microbiology 05/07/23 14:30 Gram Stain - Final Peritoneal Fluid Anaerobic Culture - Preliminary Body Fluid Culture - Final A&P Assessment and plan (1) Shock: Undifferentiated shock Off Levophed now Continue midodrine Continue Florinef Continue Zosyn and doxycycline Follow cultures Supportive care (2) Chest pain: Telemetry monitoring Continue ASA and statin Cardiology following Stress test done. Results awaited. 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 S/p pRBC transfusion Nephro following, appreciate recommendations and HD management (4) Type 2 diabetes mellitus: Does not appear to be on treatment Monitor BS (5) Anasarca: Anasarca, ascites, volume overload Request paracentesis this week, order placed (6) Elevated troponin: C/w myocardial injury Cardiology managing as noted above (7) CHF (congestive heart failure), NYHA class III: Volume control via HD Strict I&Os Daily weights Daily assessment of volume (8) Abnormal TSH: Will need repeat TFT in 4-6 weeks (9) Constipation: Resolved Current current bowel regimen Plan DVT ppx: Heparin Code: Full Plan for the day: Follow-up stress test results. Appreciate cardiology recommendations for now continue with aspirin, statin. Blood pressure better. Continue with Florinef and midodrine. Follow-up after paracentesis. We will follow-up fluid studies. Restart diet after paracentesis. For now continue with Zosyn and doxycycline. Transfer to [facility]. Discharge plan: Can plan to discharge to SNF for further care after cardiology recommendation and stress test result and paracentesis most likely within next 24 hours. Attestations Medical Necessity Statement*: Requires further hospitalization for evaluation of possible ACS with stress test, paracentesis Diagnoses Shock R57.9 Chest pain R07.9 End-stage renal disease on hemodialysis N18.6; Z99.2 Type 2 diabetes mellitus E11.9 Anasarca R60.1 Elevated troponin R79.89 CHF (congestive heart failure), NYHA class III I50.9 Abnormal TSH R79.89 Constipation K59.00
[2023-05-14] MEDS: sevelamer 800 mg Tablet 4000 MG PO ×2 (15:24→17:24)
[2023-05-14 16:09] LABS: Color, Body Fluid PALE YELLOW
[2023-05-14 16:10] LABS: Cyto Order Verification Order Verified
[2023-05-14 16:18] LABS: Body Fluid WBC 203 /uL; Monocytes # Body Fluid 0.173
[2023-05-14 16:21] LABS: Apprearance, Body Fluid CLOUDY; PATH Referral YES
[2023-05-14 16:40] LABS: Albumin Body Fluid 1.6 g/dL; Amylase Body Fluid 11 U/L; Cholesterol Body Fluid 30 mg/dL (0-200); Fluid Alkaline Phos. 19 IU/L; LDH Body Fluid 102 U/L; Total Protein Body Fluid 3.4 g/dL; Triglycerides Body Fluid 64 mg/dL (0-150); Uric Acid Body Fluid 4 mg/dL
[2023-05-14] MEDS: hyDROXYzine 25 mg Capsule PO (17:22)
[2023-05-14] MEDS: oxyCODONE 5 mg IR Tab/Cap PO (17:22)
[2023-05-14 17:30] LABS: Glucose Point of Care 87 mg/dL (70-110)
--- NOTE | 2023-05-14 17:42 | P.PN_ITS ---
Subjective Subjective: Patient is feeling better. He had a Myocardial perfusion imaging which was found to be abnormal. Apparently patient was having chest pain during the stress test. His blood pressure still is fluctuating. It is mostly in the 80s and 90s. Medications: Medication Review Details: Current Medications Acetaminophen (Acetaminophen 325 Mg Tablet) 650 mg PO Q6H PRN PRN Reason: Mild/Mod Pain Or Temp >/= 101 Last Admin: 05/07/23 20:59 Dose: 650 mg Albuterol/Ipratropium (Ipratropium-Albuterol 3 Ml Neb) 3 ml INHALATION Q4H PRN PRN Reason: SHORTNESS OF BREATH Aspirin (Aspirin 81 Mg Ec Tablet) 81 mg PO DAILY [facility] Last Admin: 05/14/23 09:03 Dose: 81 mg Atorvastatin Calcium (Atorvastatin 40 Mg Tablet) 80 mg PO DAILY [facility] Last Admin: 05/14/23 09:06 Dose: 80 mg Atropine Sulfate (Atropine 0.1 Mg/Ml Syr 10 Ml) 0.5 mg IVP PRN PRN PRN Reason: HEART RATE-LOW Stop: 05/15/23 06:15 Last Admin: 05/14/23 10:51 Dose: 0.5 mg Bisacodyl (Bisacodyl 5 Mg Tablet) 5 mg PO DAILY PRN PRN Reason: CONSTIPATION Last Admin: 05/12/23 10:10 Dose: 5 mg Bisacodyl (Bisacodyl 10 Mg Supp) 10 mg KS DAILY PRN PRN Reason: Constip Doxycycline Monohydrate (Doxycycline 100 Mg Tablet) 100 mg PO BID [facility]; Protocol Last Admin: 05/14/23 17:21 Dose: 100 mg Esmolol HCl (Esmolol 100 Mg/10 Ml Sdv) 5 mg IV PRN PRN PRN Reason: HEART RATE-HIGH Stop: 05/15/23 06:16 Last Admin: 05/14/23 11:03 Dose: 5 mg Fludrocortisone Acetate (Fludrocortisone 0.1 Mg Tablet) 0.1 mg PO DAILY [facility] Last Admin: 05/14/23 09:03 Dose: 0.1 mg Folic Acid (Folic Acid 1 Mg Tablet) 1 mg PO DAILY [facility] Last Admin: 05/14/23 09:10 Dose: 1 mg Gabapentin (Gabapentin 100 Mg Capsule) 100 mg PO TID [facility] Last Admin: 05/14/23 15:19 Dose: 100 mg Heparin Sodium (Porcine) (Heparin, Porcine 1,000 Unit/Ml Inj 10 Ml) 10,000 unit INTRACATH PRN PRN; Protocol PRN Reason: FOR DIALYSIS USE ONLY Heparin Sodium (Porcine) (Heparin, Porcine 1,000 Unit/Ml Inj 10 Ml) 1,000 unit IV PRN PRN; Protocol PRN Reason: FOR DIALYSIS USE ONLY Heparin Sodium (Porcine) (Heparin 5,000 Unit/Ml Inj 1 Ml) 5,000 unit SUBCUT Q12H [facility] Last Admin: 05/14/23 12:50 Dose: Not Given Hydroxyzine Pamoate (Hydroxyzine 25 Mg Capsule) 25 mg PO QID PRN PRN Reason: ANXIETY Last Admin: 05/14/23 17:22 Dose: 25 mg Piperacillin Sod/Tazobactam (Sod 3.375 gm/ Sodium Chloride) 50 mls @ 12.5 mls/hr IV Q12H [facility]; Protocol Last Infusion: 05/14/23 14:12 Dose: Infused Albumin Human (Albumin) 12.5 gm in 50 mls @ 60 mls/hr IV PRN PRN PRN Reason: Hypotension and/or symptomatic Last Infusion: 05/13/23 19:44 Dose: Infused Sodium Chloride (Sodium Chloride 0.9%) 1,000 mls @ 0 mls/hr IV .Q0M PRN PRN Reason: hypotension or symptomatic Lactulose (Lactulose Oral Liq 20 Gm/30 Ml Udc) 10 gm PO DAILY PRN PRN Reason: Constipation Metoprolol Tartrate (Metoprolol Tartrate 1 Mg/1 Ml Sdv 5 Ml) 5 mg IV PRN PRN PRN Reason: HEART RATE-HIGH Midodrine (Midodrine 5 Mg Tablet) 10 mg PO TID [facility] Last Admin: 05/14/23 15:19 Dose: 10 mg Naloxone HCl (Naloxone 0.4 Mg/Ml Sdv) 0.1 mg IVP Q2M PRN PRN Reason: OPIATERV Nitroglycerin (Nitroglycerin 0.4 Mg Sublingual Tablet) 0.4 mg SUBLINGUAL Q5M PRN PRN Reason: CHEST PAIN Stop: 05/15/23 06:15 Ondansetron HCl (Ondansetron 2 Mg/Ml Sdv 2 Ml) 4 mg IVP Q8H PRN PRN Reason: vomiting, or N/V if npo Last Admin: 05/13/23 22:16 Dose: 4 mg Ondansetron HCl (Ondansetron 2 Mg/Ml Sdv 2 Ml) 4 mg IVP Q2M PRN PRN Reason: NAUSEA Oxycodone HCl (Oxycodone 5 Mg Ir Tab/Cap) 5 mg PO Q4H PRN PRN Reason: MODERATE PAIN Last Admin: 05/14/23 17:22 Dose: 5 mg Pantoprazole Sodium (Pantoprazole Dr 40 Mg Tablet) 40 mg PO DAILY [facility] Last Admin: 05/14/23 09:04 Dose: 40 mg Polyethylene Glycol (Polyethylene Glycol 3350 Pkt 17 Gm) 17 gm PO BID [facility] Last Admin: 05/14/23 17:23 Dose: 17 gm Sevelamer Carbonate (Sevelamer 800 Mg Tablet) 4,000 mg PO TIDWM [facility] Last Admin: 05/14/23 17:24 Dose: 4,000 mg Sevelamer Carbonate (Sevelamer 800 Mg Tablet) 3,200 mg PO BID PRN PRN Reason: WITH SNACKS Trazodone HCl (Trazodone 100 Mg Tablet) 100 mg PO BEDTIME [facility] Last Admin: 05/13/23 21:09 Dose: 100 mg Venlafaxine HCl (Venlafaxine Er (24hr) 75 Mg Capsule) 75 mg PO DAILY [facility] Last Admin: 05/14/23 09:05 Dose: 75 mg Vitamin A/Vitamin D (Vitamin A & D Oint) 1 applic TOPICAL QID PRN PRN Reason: DRYNESS Last Admin: 05/09/23 09:01 Dose: 1 applic Vitals/I&O/Wt Last Vital Signs Temp 96.8 F L 05/13/23 21:44 Pulse 92 05/14/23 16:00 Resp 12 05/14/23 17:22 BP 90/64 05/14/23 15:30 Pulse Ox 98 05/14/23 17:22 O2 Del Method Room Air 05/14/23 16:00 O2 Flow Rate 3 05/14/23 12:30 FiO2 28 05/13/23 00:00 05/14/23 05/14/23 05/14/23 06:59 14:59 22:59 Intake Total 50 / 1800 74.445 / 74.445 Output Total 8000 / 8000 Balance 50 / -884 74.445 / 74.445 -8000 / -7925.555 Weight last 48 hrs Weight 299 lb 6.204 oz Physical Exam Narrative: GENERAL: The patient is alert and oriented times three. Not in any acute distress. HEENT: Moderate pallor. No icterus or lymphadenopathy.Oral cavity: There are no mucous membrane lesions. NECK: Trachea appears to be central. No masses noted. No JVD or thyromegaly appreciated. RESPIRATORY: Chest is symmetrical. No intercostals muscle retraction or any ac cessory muscle activation. There is no chest wall tenderness. Breath sounds are heard bilaterally. No rales or rhonchi heard. No evidence of any consolidation. BREASTS: Deferred. HEART: The heart sounds are normal. No S3 or S4. Short systolic murmur in the left sternal border. No diastolic murmurs.. No pericardial rub ABDOMEN: Obese and nontender. Minimal abdominal wall edema is present in the lower abdomen. Bowel sounds are normally heard. : Deferred. Scrotal edema present RECTAL: Deferred. LYMPHATIC: No lymphadenopathy in the cervical region EXTREMITIES: Features of chronic venous stasis and multiple healing superficial ulcers with the blackish scabs, on the right side. Below-knee amputation on the left side MUSCULOSKELETAL: No acute joint deformities or swelling SKIN: Features of chronic venous stasis and healing superficial ulcers in the right leg NEUROPSYCHIATRIC: The patient is alert and oriented x3. Appears to be in a good mood. No tremors or rigidity noted. Data 05/15/23 04:40 05/15/23 04:40 Other Labs: Laboratory Last Values WBC 5.46 10^3/uL (3.29-11.43) 05/15/23 04:40 RBC 3.69 10^6/uL (3.85-5.65) L 05/15/23 04:40 Hgb 9.10 g/dL (11.27-16.99) L 05/15/23 04:40 Hct 31.6 % (37-53) L 05/15/23 04:40 MCV 85.6 fl (82-101) 05/15/23 04:40 MCH 24.7 pg (27-33) L 05/15/23 04:40 MCHC 28.8 g/dL (30-55) L 05/15/23 04:40 RDW 17.0 % (12.1-15.1) H 05/15/23 04:40 Plt Count 99 10^3/cmm (157-399) L 05/15/23 04:40 MPV 9.6 fL (7.4-10.4) 05/15/23 04:40 Neut % (Auto) 66.8 % 05/15/23 04:40 Lymph % (Auto) 13.6 % 05/15/23 04:40 [place] % (Auto) 10.1 % 05/15/23 04:40 Eos % (Auto) 8.4 % 05/15/23 04:40 Baso % (Auto) 0.7 % 05/15/23 04:40 Neut # (Auto) 3.65 10^3/uL (1.8-7.7) 05/15/23 04:40 Lymph # (Auto) 0.7 10^3/uL (0.8-4.8) L 05/15/23 04:40 [place] # (Auto) 0.6 10^3/uL (0.2-0.9) 05/15/23 04:40 Eos # (Auto) 0.5 10^3/uL (0.0-0.8) 05/15/23 04:40 Baso # (Auto) 0.0 10^3/uL (0.0-0.1) 05/15/23 04:40 Nucleated RBC % (auto) 0 % 05/15/23 04:40 Nucleated RBCs # 0.0 /100WBC 05/15/23 04:40 Differential Comment Yes 05/14/23 15:30 APTT 68.5 SECONDS (23.9-36.7) H 05/10/23 05:50 Sodium 136 mmol/L (136-145) 05/15/23 04:40 Potassium 5.6 mmol/L (3.5-5.1) H 05/15/23 04:40 Chloride 97 mmol/L (98-107) L 05/15/23 04:40 Carbon Dioxide 27 mmol/L (22-29) 05/15/23 04:40 Anion Gap 17.6 (5-19) 05/15/23 04:40 BUN 56 mg/dL (6-20) H 05/15/23 04:40 Creatinine 6.5 mg/dL (0.7-1.2) H* 05/15/23 04:40 GFR Calculation 9.0 mL/min (90-130) L 05/15/23 04:40 Glucose 93 mg/dL (65-115) 05/15/23 04:40 POC Glucose 92 mg/dL (70-110) 05/15/23 07:12 Estimat Average Glucose 105 05/07/23 02:36 Hemoglobin A1c 5.3 % (4.0-6.0) 05/07/23 02:36 Calculated Osmolality 297 mOsm/kg (285-295) H 05/15/23 04:40 Lactic Acid 1.6 mmol/L (0.5-2.2) 05/07/23 02:36 Lactate 1.3 mmol/L (0.5-2.2) 05/13/23 13:23 Calcium 8.5 mg/dL (8.5-10.5) 05/15/23 04:40 Phosphorus 4.9 mg/dL (2.5-4.5) H 05/14/23 03:32 Magnesium 2.0 mg/dL (1.7-2.3) 05/14/23 03:32 Total Bilirubin 0.3 mg/dL (0.15-1.2) 05/15/23 04:40 AST 14 U/L (0-40) 05/15/23 04:40 ALT 9 U/L (0-41) 05/15/23 04:40 Alkaline Phosphatase 66 U/L (40-130) 05/15/23 04:40 Troponin T Baseline 1013 ng/L (0-15) H* 05/08/23 12:47 Troponin T 120 Minute 1104 ng/L (0-15) H 05/08/23 15:17 Delta Troponin T 91 ABS# (0-10) H* 05/08/23 15:17 Troponin T Hi Sens 6Hr 1153 ng/L (0-15) H 05/08/23 19:15 Troponin T Hi Sens 6Hr Delta 140 ng/L (0-12) H* 05/08/23 19:15 C-Reactive Protein 59.6 mg/L (0.0-4.9) H 05/13/23 04:17 NT-Pro-B Natriuret Pep 49958 pg/mL (0-125) H 05/07/23 02:36 Total Protein 6.6 g/dL (6.6-8.7) 05/15/23 04:40 Albumin 2.5 g/dL (3.5-5.2) L 05/15/23 04:40 Globulin 4.1 g/dL (1.3-4.6) 05/15/23 04:40 Triglycerides 134 mg/dL (0-150) 05/07/23 02:36 Cholesterol 90 mg/dL (0-200) 05/07/23 02:36 LDL Cholesterol, Calc 26 mg/dL (50-129) L 05/07/23 02:36 HDL Cholesterol 37 mg/dL (60-100) L 05/07/23 02:36 LDL/HDL Ratio 0.70 RATIO (0.00-3.22) 05/07/23 02:36 Cholesterol/HDL Ratio 2.43 mg/dL (1.0-5.00) 05/07/23 02:36 Procalcitonin 0.99 ng/mL (0-0.5) H 05/13/23 04:17 TSH 11.62 uIU/mL (0.27-4.20) H 05/07/23 02:36 Random Cortisol 14.54 ug/dL (2.47-19.5) 05/09/23 04:31 Fluid Color Pale yellow 05/14/23 15:30 Fluid Appearance Cloudy 05/14/23 15:30 Fluid Specific Grav 1.010 05/14/23 15:30 Fluid pH 8.0 05/14/23 15:30 Fluid WBC 203 /uL 05/14/23 15:30 Fluid RBC 2.000 10^3/uL 05/14/23 15:30 Fld Polynuclear WBCs # 0.030 05/14/23 15:30 Fld Polynuclear WBCs % 14.800 % 05/14/23 15:30 Fl Mononucl WBCs #(Auto) 0.173 05/14/23 15:30 Fl Mononuclear % Auto 85.200 % 05/14/23 15:30 Fld Crystal Laterality Na 05/14/23 15:30 Fluid Glucose 96.0 mg/dL 05/14/23 15:30 Fluid Total Protein 3.4 g/dL 05/14/23 15:30 Fluid Albumin 1.6 g/dL 05/14/23 15:30 Fluid LDH 102 U/L 05/14/23 15:30 Fluid Amylase 11 U/L 05/14/23 15:30 Fluid Alk Phosphatase 19 IU/L 05/14/23 15:30 Fluid Cholesterol 30 mg/dL (0-200) 05/14/23 15:30 Fluid Triglycerides 64 mg/dL (0-150) 05/14/23 15:30 Fluid Uric Acid 4 mg/dL 05/14/23 15:30 Hep Bs Antigen Non-reactive (Nonreactive) 05/07/23 02:36 Hep Bs Antibody 49.7 (11.5-1000) 05/07/23 02:36 Hep B Core Total Ab Non-reactive (Nonreactive) 05/07/23 02:36 Blood Type A Positive 05/08/23 13:38 Rho(D) Type Positive 05/08/23 13:38 Antibody Screen Negative 05/08/23 13:38 Crossmatch See Detail 05/08/23 13:38 Micro: Microbiology 05/14/23 15:30 Gram Stain - Final Peritoneal Fluid 05/07/23 14:30 Gram Stain - Final Peritoneal Fluid Anaerobic Culture - Preliminary Body Fluid Culture - Final A&P Assessment and plan (1) Elevated troponin I level: This may suggest a non-ST elevation myocardial infarction of type I. The abnormal Myocardial perfusion imaging is suggestive of ischemia in the distribution of the left and descending artery, predominantly with some involvement of the circumflex artery. (2) CHF (congestive heart failure), NYHA class III: Clinically seems to be compensated. Patient is on hemodialysis. Management as per the nephrology. (3) Shock: Patient was on the vasopressors. This is currentlytapered off. The vital signs are stable at this point. (4) End-stage renal disease on hemodialysis: Patient is on hemodialysis. Management as per the nephrology service. (5) Type 2 diabetes mellitus: Aggressive management of the diabetes would be appropriate at this point. (6) Acute and chronic respiratory failure with hypoxia: Respiratory status is currently stable. (7) Morbid obesity with BMI of 40.0-44.9, adult: Continue the lifestyle modifications. Plan For further evaluation of his coronary status, patient requires a cardiac catheterization. This was discussed in detail. The risk of bleeding, hematoma, vascular injury, myocardial infarction, myocardial perforation, malignant cardiac arrhythmias ,CVA, renal failure and other concomitant complications were explained in detail. In view of his chronic kidney disease, he may require emergency dialysis. Patient understand these issues well and consented to proceed Attestations Medical Necessity Statement*: Patient requires continued hospital stay for close monitoring and further management Coding Level of Care Code Acute Code for Chg Fwd Diagnoses Elevated troponin I level R79.89 CHF (congestive heart failure), NYHA class III I50.9 Shock R57.9 End-stage renal disease on hemodialysis N18.6; Z99.2 Type 2 diabetes mellitus E11.9 Acute and chronic respiratory failure with hypoxia J96.21 Morbid obesity with BMI of 40.0-44.9, adult E66.01; Z68.41
[2023-05-14] MEDS: trazodone 100 mg Tablet PO (20:26)
[2023-05-14] MEDS: heparin 5,000 unit/mL INJ 1 mL 5000 UNIT SUBCUT (23:41)
[2023-05-15] VITALS (37 sets, daily range): BP systolic 81–117; BP diastolic 54–86; PULSE 74–95; RESP 0–26; TEMP 37; O2SAT 85–100
[2023-05-15] MEDS: ondansetron 2 mg/ML SDV 2 mL 4 MG IVP (04:17)
[2023-05-15 04:58] LABS: Basophils % 0.7 %; Eosinophils # 0.5 10^3/uL (0.0-0.8); Eosinophils % 8.4 %; Hematocrit 31.6 % (37-53); Lymphocytes # 0.7 10^3/uL (0.8-4.8); Lymphocytes % 13.6 %; Mean Corpuscular HGB Conc 28.8 g/dL (30-55); Mean Corpuscular Hemoglobin 24.7 pg (27-33); Mean Corpuscular Volume 85.6 fl (82-101); Mean Platelet Volume 9.6 fL (7.4-10.4); Monocytes # 0.6 10^3/uL (0.2-0.9); Monocytes % 10.1 %; Neutrophils # 3.65 10^3/uL (1.8-7.7); Neutrophils % 66.8 %; Nucleated Red Blood Cells % 0 %; Platelet Count 99 10^3/cmm (157-399); Red Blood Count 3.69 10^6/uL (3.85-5.65); White Blood Count 5.46 10^3/uL (3.29-11.43)
[2023-05-15 05:22] LABS: Alanine Aminotransferase 9 U/L (0-41); Albumin Level 2.5 g/dL (3.5-5.2); Alkaline Phosphatase 66 U/L (40-130); Anion Gap 17.6 (5-19); Aspartate Amino Transferase 14 U/L (0-40); Blood Urea Nitrogen 56 mg/dL (6-20); Calcium 8.5 mg/dL (8.5-10.5); Carbon Dioxide 27 mmol/L (22-29); Chloride 97 mmol/L (98-107); Globulin 4.1 g/dL (1.3-4.6); Glucose 93 mg/dL (65-115); Osmolality Calculated 297 mOsm/kg (285-295); Potassium 5.6 mmol/L (3.5-5.1); Sodium 136 mmol/L (136-145); Total Bilirubin 0.3 mg/dL (0.15-1.2); Total Protein 6.6 g/dL (6.6-8.7)
[2023-05-15 05:29] LABS: Creatinine Clr Calc Pharmacy 19.0099
[2023-05-15] MEDS: diphenhydrAMINE 50 mg Capsule PO (06:08)
[2023-05-15] MEDS: aspirin 325 mg Tablet PO (06:08)
[2023-05-15] MEDS: sodium chloride 0.9% 1,000 ML 50 ML IV (06:09)
[2023-05-15 06:49] LABS: Glucose Point of Care 96 mg/dL (70-110)
[2023-05-15 07:25] LABS: Glucose Point of Care 92 mg/dL (70-110)
[2023-05-15] MEDS: epoetin alfa 1000 Unit/0.05 mL (ESRD) 20000 UNIT SUBCUT (07:37)
[2023-05-15] MEDS: hyDROXYzine 25 mg Capsule PO ×2 (07:41→18:38)
--- NOTE | 2023-05-15 08:30 | XACV_ITS ---
Exam Room: [facility] Ht: 183 cm Wt: 136 kg BSA: 2.68 m2 Gender: Male : 1970 Any Known Allergies: Other Exam Priority: Routine Procedure(s): Procedure Description: Diagnostic procedure Procedure Description: Left Heart Catheterization Procedure Description: Coronary Angiography Aroldo DE LEON; Diagnostic Cath Status: Urgent Diagnostic Findings * INDICATION: NSTEMI/ Abnormal stress test. * Right Coronary Artery has mild luminal irregularities. * Left Main: Significant 50% distal stenosis, HEATHER: 3 flow. * Proximal Circumflex: critical 95% heavily calcified stenosis, HEATHER: 3 flow. * Ostial/Proximal Left Anterior Descending: significant 70- 80% stenosis, HEATHER: 3 flow. * Femoral artery angiogram on the right side shows a normal sized vessel without significant disease. * Coronary angiography shows right dominance. Conclusions 1. Patient has significant distal left main disease 2. , heavily calcified, critical ostial 3. to proximal left circumflex artery stenosis and severe 4. ostial to proximal LAD stenosis.. 5. Right common femoral artery angiogram shows normal sized vessel without significant disease. Recommendations * We will transfer patient for CT surgery evaluation at tertiary care center for possible CABG. If he is not a good surgical candidate, will need high risk bifurcation PCI of left main/LCx/LAD with arthrectomy. We do not have CT surgery backup in the hospital, will recommend transfer. * Continue aspirin. No plavix. Pressures Phase:Rest AO : 70 / 62 ( 66 ) @ 10:13:00 AM 90 / 60 ( 69 ) @ 10:18:00 AM 89 / 55 ( 68 ) @ 10:22:00 AM 90 / 55 ( 68 ) @ 10:22:00 AM LV : 122 / -4 / 19 @ 10:21:00 AM 123 / -4 / 22 @ 10:22:00 AM Valves Phase:DefaultPhase AV : 34.0 @ 9:45:48 AM 34.0 @ 9:45:48 AM AV Mean Gradient: 23.0 @ 9:45:48 AM 23.0 @ 9:45:48 AM Clinical Evaluation EBL: 5mL-10mL Procedural Details Procedure Consent Obtained. Admit Source: In Patient. Pre-Procedure Time Out. Identified patient by full name and date of as verbalized by the patient/guarantor. Does the consent match the physician's order: Yes. Accurate & Complete Informed Consent: Yes. Inpatient/Outpatient History & Physical on Chart: Yes. If H&P is completed, is and addenduem needed: No; If yes, is the addendum complete: N/A. Visualize and Verify Site with Patient/Guarantor: N/A. Relevant Radiology Images available: Yes. The risks, benefits, and alternatives of sedation and/or procedure were discussed by physician. The patient agrees to continue. Procedure started. [facility] Clinical Fraility Score: 4: Vulnerable. Galvanizing Pot Runner Indications: Worsening Angina. Chest Pain Symptom Assessment: Atypical Angina. Correct patient, site and procedure confirmed by cath team. Current diagnosis: Chest Pain, Elevated troponin, Abnormal stress test. PERRLA. Strong, equal hand cardiac exercise physiologist bilaterally. Lungs clear x 5 lobes. IV Site on Arrival: 20 gauge in the right forearm. IV Site on Arrival: 20 gauge in the right hand. IV Fluids: 0.9% NaCl at KVO. 50 mL infused prior to laboratory inspector. Pre Procedural Pulses: right dorsalis pedis was Doppled. Pre Procedural Pulses: right posterior tibial was Doppled. Pre Procedural Pulses: right radial was 3+. Oxygen started at 3liters/min via nasal canula. bilateral groins was prepped with chloroprep then draped in the usual sterile fashion. Physician notified. Baseline sample Acquired. HR: 92 BPM. Physician arrived. Physician scrubbed in. Immediate Pre-Procedure Time Out. Correct Patient: Yes; Correct Procedure: Yes; Correct Site: Yes; Correct Patient Position: Yes; Correct Supplies: Yes; Dried Flammable Prep: Yes; Blood Products Available: Yes;. Dr. Arguelles called to lab as requested by Dr. Kendrick. Physicians discussing access site for patient due to difficult anatomy. Dr. Arguelles scrubbed in to perform case for Dr. Kendrick. Lidocaine 1% infiltrated to the right groin. Ultrasound obtained to assist with arterial access. Arterial access obtained with micropuncture set. Hand injection performed through sheath. A 5 guinean JL4 catheter in over wire. Multiple views taken of left coronary artery. Catheter removed over the standard wire. A 5 guinean JR4 catheter in over wire. Multiple views taken of right coronary artery. EDP Sample taken: LV 122/-5,19; HR: 85 BPM; SpO2: 97%. Pullback taken: LV 123/-5,22; AO 89/55(68); Mean: 23mmHg, Peak to Peak: 34mmHg, SEP: 21sec/min; HR: 95 BPM; SpO2: 96%. Catheter removed over the standard wire. Physician scrubbed out. Physician review of cine films. Dr. Arguelles scrubbed back in. Sheath upsized to a 6 Fr. A Mynx was successful obtaining hemostatsis at the Right Femoral artery insertion site. [id number] exp. 2025-03-29. Mynx placed without complications. No signs or symptoms of hematoma noted. Sterile dressing applied per usual sterile fashion. Post Procedure: Pulses reassessed and unchanged. PERRLA. Strong, equal hand cardiac exercise physiologist bilaterally. No VTE prophylaxis required. Medication's Wasted: Lidocaine 1% = 2 mL. Medication's Wasted: Heparin = 1000 units. Medication's Wasted: Other = Fentanyl 75 mcg versed 1 mg. Total IV fluids: 53 mL. Post-op diagnosis: Severe distal left main, severe ostial circumflex, severe ostial lad stenosis. Complications: none. Estimated blood loss: 5mL-10mL. Responsiveness - Normal response to verbal stimuli; alert and oriented, PERRLA. Airway - Unaffected, no intervention required; spontaneous ventilation. Circulation: W/N/L, pulses unchanged. Nausea/Vomiting: No. Procedure completed. Patient transferred by bed to 1st floor. Vital chart was stopped. Access Site Site: Right Femoral artery Sheath Size: 5 Fr Hemostasis Method: Mynx Hemostasis Success: Successful Procedure Medications Start: 8:51 AM Stop: 8:51 AM Medication: Versed Amount: 1 mg Route: I.V. Start: 8:51 AM Stop: 8:51 AM Medication: Fentanyl Amount: 25 mcg Route: I.V. I, the attending physician, have reviewed and verified all procedure medications. Yes, all medications given per verbal order History/Risk Factors Hypertension: Yes Dyslipidemia: No Peripheral Arterial Disease (PAD): Yes Myocardial Infarction (WA): No Obesity: Yes Renal Disease: Yes Tobacco Use: Never Dialysis: Current Prior Interventions PCI: No CABG: No Valve Surgery: No Report Signatures Finalized by Erik Arguelles MD on 05/15/2023 10:35 AM
--- NOTE | 2023-05-15 08:43 | W.PM.OPSUD ---
Surgery/Procedure H&P Update DATE OF PROCEDURE: May 15, 2023 DATE H&P PERFORMED: 05/08/23 H&P UPDATE INFORMATION: I have reviewed H&P completed within last 30 days, I have examined patient prior to procedure and No changes to prior documentation (The lungs are clear. Heart sounds are normal. No pericardial rub) PREOP DIAGNOSIS: Suspected atherosclerotic heart disease PRIMARY INDICATION FOR PROCEDURE: Non-ST elevation myocardial infarction/abnormal Myocardial perfusion imaging PLANNED PROCEDURE: Operation Date: 05/15/23 08:30 Proposed Procedures p Left heart coronary angiogram and possible PCI(Left) - Shirin Kendrick MD PATIENT REASSESSED PRIOR TO SEDATION, WITH NO CHANGE NOTED: Yes PHYSICAL EXAM: alert, oriented x 3, clear to auscultation bilaterally and regular rate & rhythm AIRWAY EVAL/ANESTHESIA PLAN: normal airway, see other exam findings, ASA IV, Monitored Anesthesia, Local Anesthesia, Risks, benefits & alternatives of sedation and/or procedure discussed and Patient agrees to continue as planned
--- NOTE | 2023-05-15 08:57 | PC.NURSE ---
To lift slab operator at 0830 via bed by GILMER Mcleod. Patient's belongings taken to [facility] [id number]. Report called to GILMER Cunha.
--- NOTE | 2023-05-15 09:45 | P.PN_ITS ---
Subjective Subjective: Patient had the cardiac evaluation this morning. He was found high-grade lesion in the ostium of the left anterior descending artery and the circumflex artery. The distal left main also was found to have an eccentric, greater than 50% stenosis. Denies any chest pain or shortness of breath at this time. Patient had a large-volume paracentesis yesterday, took out around 8 L of fluid. Medications: Medication Review Details: Current Medications Acetaminophen (Acetaminophen 325 Mg Tablet) 650 mg PO Q6H PRN PRN Reason: Mild/Mod Pain Or Temp >/= 101 Last Admin: 05/07/23 20:59 Dose: 650 mg Albuterol/Ipratropium (Ipratropium-Albuterol 3 Ml Neb) 3 ml INHALATION Q4H PRN PRN Reason: SHORTNESS OF BREATH Aspirin (Aspirin 81 Mg Ec Tablet) 81 mg PO DAILY [facility] Last Admin: 05/14/23 09:03 Dose: 81 mg Atorvastatin Calcium (Atorvastatin 40 Mg Tablet) 80 mg PO DAILY [facility] Last Admin: 05/14/23 09:06 Dose: 80 mg Bisacodyl (Bisacodyl 5 Mg Tablet) 5 mg PO DAILY PRN PRN Reason: CONSTIPATION Last Admin: 05/12/23 10:10 Dose: 5 mg Bisacodyl (Bisacodyl 10 Mg Supp) 10 mg MD DAILY PRN PRN Reason: Constip Doxycycline Monohydrate (Doxycycline 100 Mg Tablet) 100 mg PO BID [facility]; Protocol Last Admin: 05/14/23 17:21 Dose: 100 mg Fludrocortisone Acetate (Fludrocortisone 0.1 Mg Tablet) 0.1 mg PO DAILY [facility] Last Admin: 05/14/23 09:03 Dose: 0.1 mg Folic Acid (Folic Acid 1 Mg Tablet) 1 mg PO DAILY [facility] Last Admin: 05/14/23 09:10 Dose: 1 mg Gabapentin (Gabapentin 100 Mg Capsule) 100 mg PO TID [facility] Last Admin: 05/14/23 20:26 Dose: 100 mg Heparin Sodium (Porcine) (Heparin, Porcine 1,000 Unit/Ml Inj 10 Ml) 10,000 unit INTRACATH PRN PRN; Protocol PRN Reason: FOR DIALYSIS USE ONLY Heparin Sodium (Porcine) (Heparin, Porcine 1,000 Unit/Ml Inj 10 Ml) 1,000 unit IV PRN PRN; Protocol PRN Reason: FOR DIALYSIS USE ONLY Heparin Sodium (Porcine) (Heparin 5,000 Unit/Ml Inj 1 Ml) 5,000 unit SUBCUT Q12H [facility] Last Admin: 05/14/23 23:41 Dose: 5,000 unit Hydroxyzine Pamoate (Hydroxyzine 25 Mg Capsule) 25 mg PO QID PRN PRN Reason: ANXIETY Last Admin: 05/15/23 07:41 Dose: 25 mg Piperacillin Sod/Tazobactam (Sod 3.375 gm/ Sodium Chloride) 50 mls @ 12.5 mls/hr IV Q12H [facility]; Protocol Last Infusion: 05/15/23 01:16 Dose: Infused Albumin Human (Albumin) 12.5 gm in 50 mls @ 60 mls/hr IV PRN PRN PRN Reason: Hypotension and/or symptomatic Last Infusion: 05/13/23 19:44 Dose: Infused Sodium Chloride (Sodium Chloride 0.9%) 1,000 mls @ 0 mls/hr IV .Q0M PRN PRN Reason: hypotension or symptomatic Sodium Chloride (Sodium Chloride 0.9%) 1,000 mls @ 50 mls/hr IV .Q20H ONE Stop: 05/16/23 02:59 Last Admin: 05/15/23 06:09 Dose: 50 mls/hr Lactulose (Lactulose Oral Liq 20 Gm/30 Ml Udc) 10 gm PO DAILY PRN PRN Reason: Constipation Metoprolol Tartrate (Metoprolol Tartrate 1 Mg/1 Ml Sdv 5 Ml) 5 mg IV PRN PRN PRN Reason: HEART RATE-HIGH Midodrine (Midodrine 5 Mg Tablet) 10 mg PO TID [facility] Last Admin: 05/14/23 20:26 Dose: 10 mg Naloxone HCl (Naloxone 0.4 Mg/Ml Sdv) 0.1 mg IVP Q2M PRN PRN Reason: OPIATERV Ondansetron HCl (Ondansetron 2 Mg/Ml Sdv 2 Ml) 4 mg IVP Q8H PRN PRN Reason: vomiting, or N/V if npo Last Admin: 05/15/23 04:17 Dose: 4 mg Ondansetron HCl (Ondansetron 2 Mg/Ml Sdv 2 Ml) 4 mg IVP Q2M PRN PRN Reason: NAUSEA Oxycodone HCl (Oxycodone 5 Mg Ir Tab/Cap) 5 mg PO Q4H PRN PRN Reason: MODERATE PAIN Last Admin: 05/14/23 17:22 Dose: 5 mg Pantoprazole Sodium (Pantoprazole Dr 40 Mg Tablet) 40 mg PO DAILY [facility] Last Admin: 05/14/23 09:04 Dose: 40 mg Polyethylene Glycol (Polyethylene Glycol 3350 Pkt 17 Gm) 17 gm PO BID [facility] Last Admin: 05/14/23 17:23 Dose: 17 gm Sevelamer Carbonate (Sevelamer 800 Mg Tablet) 4,000 mg PO TIDWM [facility] Last Admin: 05/14/23 17:24 Dose: 4,000 mg Sevelamer Carbonate (Sevelamer 800 Mg Tablet) 3,200 mg PO BID PRN PRN Reason: WITH SNACKS Trazodone HCl (Trazodone 100 Mg Tablet) 100 mg PO BEDTIME [facility] Last Admin: 05/14/23 20:26 Dose: 100 mg Venlafaxine HCl (Venlafaxine Er (24hr) 75 Mg Capsule) 75 mg PO DAILY [facility] Last Admin: 05/14/23 09:05 Dose: 75 mg Vitamin A/Vitamin D (Vitamin A & D Oint) 1 applic TOPICAL QID PRN PRN Reason: DRYNESS Last Admin: 05/09/23 09:01 Dose: 1 applic Vitals/I&O/Wt Last Vital Signs Temp 96.8 F L 05/13/23 21:44 Pulse 93 05/15/23 08:30 Resp 16 05/15/23 08:30 BP 102/65 05/15/23 08:30 Pulse Ox 96 05/15/23 08:30 O2 Del Method Nasal Cannula 05/15/23 08:30 O2 Flow Rate 3 05/15/23 08:30 FiO2 28 05/15/23 00:00 05/14/23 05/15/23 05/15/23 22:59 06:59 14:59 Intake Total 360 / 434.445 50 / 484.445 0 / 0 Output Total 8000 / 8000 Balance -7640 / -7565.555 50 / -7515.555 0 / 0 Weight last 48 hrs Weight 299 lb 6.204 oz Physical Exam Narrative: GENERAL: The patient is alert and oriented times three. Not in any acute distress. HEENT: Moderate pallor. No icterus or lymphadenopathy.Oral cavity: There are no mucous membrane lesions. NECK: Trachea appears to be central. No masses noted. No JVD or thyromegaly appreciated. RESPIRATORY: Chest is symmetrical. No intercostals muscle retraction or any accessory muscle activation. There is no chest wall tenderness. Breath sounds are heard bilaterally. No rales or rhonchi heard. No evidence of any consolidation. BREASTS: Deferred. HEART: The heart sounds are normal. No S3 or S4. Short systolic murmur in the left sternal border. No diastolic murmurs.. No pericardial rub ABDOMEN: Obese and nontender. Minimal abdominal wall edema is present in the lower abdomen. Indurated edema in the lower abdomen, pubic region and into the scrotal. Bowel sounds are normally heard. : Deferred. Scrotal edema present RECTAL: Deferred. LYMPHATIC: No lymphadenopathy in the cervical region EXTREMITIES: Features of chronic venous stasis and multiple healing superficial ulcers with the blackish scabs, on the right side. Below-knee amputation on the left side MUSCULOSKELETAL: No acute joint deformities or swelling SKIN: Features of chronic venous stasis and healing superficial ulcers in the right leg NEUROPSYCHIATRIC: The patient is alert and oriented x3. Appears to be in a good mood. No tremors or rigidity noted. Data 05/15/23 04:40 05/15/23 04:40 Micro: Microbiology 05/14/23 15:30 Gram Stain - Final Peritoneal Fluid Body Fluid Culture - Preliminary 05/07/23 14:30 Gram Stain - Final Peritoneal Fluid Anaerobic Culture - Preliminary Body Fluid Culture - Final A&P Assessment and plan (1) Left main coronary artery disease: This patient has features of severe left main equivalent disease. surgical revascularization will be ideal. However in view of his multiple comorbidities, The surgical risk seems to be very high. High risk percutaneous intervention might be more appropriate. so for further management of his condition, he need to be transferred to a facility where high risk procedures can be performed. (2) Elevated troponin I level: This may suggest a non-ST elevation myocardial infarction of type I. C urrently the patient is pain-free. (3) CHF (congestive heart failure), NYHA class III: Clinically seems to be compensated. Patient is on hemodialysis. Management as per the nephrology. (4) Shock: Patient was on the vasopressors. This is currentlytapered off. The vital signs are stable at this point. (5) End-stage renal disease on hemodialysis: Patient is on hemodialysis. Management as per the nephrology service. (6) Type 2 diabetes mellitus: Aggressive management of the diabetes would be appropriate at this point. (7) Acute and chronic respiratory failure with hypoxia: Respiratory status is currently stable. (8) Morbid obesity with BMI of 40.0-44.9, adult: Continue the lifestyle modifications. (9) Ascites: Status post large-volume paracentesis. Currently seems to be doing Plan For further evaluation of his coronary status, patient requires a cardiac parker terization. This was discussed in detail. The risk of bleeding, hematoma, vascular injury, myocardial infarction, myocardial perforation, malignant cardiac arrhythmias ,CVA, renal failure and other concomitant complications were explained in detail. In view of his chronic kidney disease, he may require emergency dialysis. Patient understand these issues well and consented to proceed Addendum: The cardiac catheterization revealed around 60% eccentric distal left main stenosis. High-grade ostial stenosis in the LAD and circumflex artery. Mild diffuse disease in the right coronary artery. Patient requires a high risk revascularization procedure. Attestations Medical Necessity Statement*: Patient requires continued hospital stay for close monitoring and further management Coding Level of Care Code 29714 Diagnoses Left main coronary artery disease I25.10 Elevated troponin I level R79.89 CHF (congestive heart failure), NYHA class III I50.9 Shock R57.9 End-stage renal disease on hemodialysis N18.6; Z99.2 Type 2 diabetes mellitus E11.9 Acute and chronic respiratory failure with hypoxia J96.21 Morbid obesity with BMI of 40.0-44.9, adult E66.01; Z68.41 Ascites R18.8
--- NOTE | 2023-05-15 13:23 | P.PN_ITS ---
Subjective Subjective: getting hd Medications: Reviewed: Yes Vitals/I&O/Wt Last Vital Signs Temp 96.8 F L 05/13/23 21:44 Pulse 93 05/15/23 08:30 Resp 16 05/15/23 08:30 BP 102/65 05/15/23 08:30 Pulse Ox 96 05/15/23 08:30 O2 Del Method Nasal Cannula 05/15/23 08:30 O2 Flow Rate 3 05/15/23 08:30 FiO2 28 05/15/23 00:00 05/14/23 05/15/23 05/15/23 22:59 06:59 14:59 Intake Total 360 / 434.445 50 / 484.445 0 / 0 Output Total 8000 / 8000 Balance -7640 / -7565.555 50 / -7515.555 0 / 0 Weight last 48 hrs Weight 135.8 kg Physical Exam Narrative: awake , alert HEENT mayo s1s2 rrr PER REPORT CRACKLES GARRY PER REPORT NO EDEMA Data 05/15/23 04:40 05/15/23 04:40 Micro: Microbiology 05/14/23 15:30 Gram Stain - Final Peritoneal Fluid Anaerobic Culture - Preliminary Body Fluid Culture - Preliminary 05/07/23 14:30 Gram Stain - Final Peritoneal Fluid Anaerobic Culture - Preliminary Body Fluid Culture - Final A&P Assessment and plan (1) End-stage renal disease on hemodialysis: Plan 1. End-stage renal disease on dialysis per TTS schedule,HD today -off pressors 2. Hyperkalemia: s/p kayexylate and low potassium diet 3. Acute on chronic respiratory failure, multifactorial, 4. Anemia: ALBERTO ordered.plan for PRBC transfusion 5. Liver cirrhosis with ascites and recurrent paracentesis, 6. History of diabetes with diabetic ulcers 7. chest pain : [facility] today 8. Hypotension : midodrine added , trail of fludrocortisone Patient evaluated using audiovisual cart. Time spent 20 minutes Attestations Medical Necessity Statement*: per medicine team Coding Level of Care Code Acute Code for Chg Fwd Diagnoses End-stage renal disease on hemodialysis N18.6; Z99.2
--- NOTE | 2023-05-15 17:09 | PM.PN ---
Subjective Subjective: No acute events overnight. Denies any nausea, vomiting, headache. Has had a restful night. Today morning seen after cardiac angiogram. Found to have left main and ostial disease though complete Supervisor [employer] report not currently available. Undergoing dialysis postcardiac catheterization. Blood work shows stable CBC, CMP showing hyperkalemia of 5.6, creatinine of 6.5 Vitals/I&O/Wt Last Vital Signs Temp 96.8 F L 05/13/23 21:44 Pulse 88 05/15/23 15:15 Resp 1 L 05/15/23 16:00 BP 92/54 05/15/23 16:00 Pulse Ox 96 05/15/23 16:00 O2 Del Method Nasal Cannula 05/15/23 08:30 O2 Flow Rate 3 05/15/23 08:30 FiO2 28 05/15/23 00:00 05/15/23 05/15/23 05/15/23 06:59 14:59 22:59 Intake Total 50 / 484.445 0 / 0 Balance 50 / -7515.555 0 / 0 Weight last 48 hrs Weight 135.8 kg Physical Exam Narrative: General: Patient is awake and alert. Conversational. Head: Normocephalic. Atraumatic. EOM intact. Neck: No JVD. Cardiovascular: SNo gallops. Systolic murmur. 3-4+ edema in BLE. Lungs: Breath sounds slightly diminished in bilateral bases, no use of accessory muscles, no crackles or wheezes. Skin: No jaundice. No rashes. Multiple wounds on lower extremities. Abdomen: Normal bowel sounds, abdomen soft and nontender. Distended Genito Urinary: Scrotum is swollen, similiar to yesterdays exam. Extremities: No cyanosis or clubbing. Sp L BKA. Neurological: No myoclonus. Data 05/15/23 04:40 05/15/23 04:40 Micro: Microbiology 05/14/23 15:30 Gram Stain - Final Peritoneal Fluid Anaerobic Culture - Preliminary Body Fluid Culture - Preliminary 05/07/23 14:30 Gram Stain - Final Peritoneal Fluid Anaerobic Culture - Preliminary Body Fluid Culture - Final A&P Assessment and plan (1) Shock: Resolved. Continue midodrine, Florinef Blood cultures have so far remain negative. Follow-up peritoneal cultures. Patient has been on antibiotics for around 7 days. We will stop antibiotics and monitor. Supportive care (2) Chest pain: With positive stress test. Postcardiac catheterization today. Awaiting cardiology recommendations. For now continue with aspirin, statin, (3) Left main coronary artery disease: Found to have left main disease with severe ostial disease in LAD and LCx. Awaiting conversation between cardiology team and patient regarding further treatment plan of medical management versus high risk CABG. Patient will most likely need to be transferred to higher center for CABG. Will await recommendations. For now continue treatment with aspirin, statins. Hold off on Plavix for now. 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 Follow-up fluid results. (7) CHF (congestive heart failure), NYHA class III: Volume control via HD Strict I&Os Daily weights Daily assessment of volume (8) Abnormal TSH: Will need repeat TFT in 4-6 weeks (9) Constipation: Resolved Current current bowel regimen Plan DVT ppx: Heparin Code: Full Discharge plan: Patient has been accepted to SNF. Will await further conversation between cardiology team and patient before further discharge plan as patient will could be transferred to higher center for high risk CABG. Attestations Medical Necessity Statement*: Requires further hospitalization for management of unstable angina with left main disease in a patient with congestive heart failure, end-stage renal disease on hemodialysis Diagnoses Shock R57.9 Chest pain R07.9 Left main coronary artery disease I25.10 End-stage renal disease on hemodialysis N18.6; Z99.2 Type 2 diabetes mellitus E11.9 Anasarca R60.1 CHF (congestive heart failure), NYHA class III I50.9 Abnormal TSH R79.89 Constipation K59.00
[2023-05-15 17:42] LABS: Glucose Point of Care 124 mg/dL (70-110)
[2023-05-15] MEDS: gabapentin 100 mg Capsule PO ×2 (17:47→20:55)
[2023-05-15] MEDS: midodrine 5 mg TABLET 10 MG PO ×2 (17:47→20:55)
[2023-05-15] MEDS: sevelamer 800 mg Tablet 4000 MG PO (17:47)
[2023-05-15] MEDS: oxyCODONE 5 mg IR Tab/Cap PO (18:38)
[2023-05-15 20:19] LABS: Glucose Point of Care 143 mg/dL (70-110)
[2023-05-15] MEDS: trazodone 100 mg Tablet PO (20:55)
[2023-05-15] MEDS: heparin 5,000 unit/mL INJ 1 mL 5000 UNIT SUBCUT (23:32)
[2023-05-16] VITALS (10 sets, daily range): BP systolic 89–106; BP diastolic 63–70; PULSE 85–98; RESP 7–16; TEMP 36.7; O2SAT 92–99
[2023-05-16 04:20] LABS: Basophils # 0.1 10^3/uL (0.0-0.1); Basophils % 1.4 %; Eosinophils # 0.4 10^3/uL (0.0-0.8); Eosinophils % 6.7 %; Hematocrit 31.2 % (37-53); Lymphocytes # 0.8 10^3/uL (0.8-4.8); Lymphocytes % 13.7 %; Mean Corpuscular HGB Conc 28.2 g/dL (30-55); Mean Corpuscular Hemoglobin 24.6 pg (27-33); Mean Corpuscular Volume 87.4 fl (82-101); Mean Platelet Volume 10.4 fL (7.4-10.4); Monocytes # 0.6 10^3/uL (0.2-0.9); Monocytes % 10.7 %; Neutrophils # 3.82 10^3/uL (1.8-7.7); Neutrophils % 66.8 %; Nucleated Red Blood Cells % 0 %; Platelet Count 135 10^3/cmm (157-399); Red Blood Count 3.57 10^6/uL (3.85-5.65); Red Cell Distribution Width 17.1 % (12.1-15.1); White Blood Count 5.71 10^3/uL (3.29-11.43)
[2023-05-16 04:49] LABS: Alanine Aminotransferase 8 U/L (0-41); Alkaline Phosphatase 58 U/L (40-130); Anion Gap 16.1 (5-19); Aspartate Amino Transferase 10 U/L (0-40); Blood Urea Nitrogen 46 mg/dL (6-20); Calcium 8.3 mg/dL (8.5-10.5); Carbon Dioxide 29 mmol/L (22-29); Chloride 94 mmol/L (98-107); Globulin 3.8 g/dL (1.3-4.6); Glomerular Filtration Rate 11.2 mL/min (90-130); Glucose 115 mg/dL (65-115); Osmolality Calculated 291 mOsm/kg (285-295); Potassium 5.1 mmol/L (3.5-5.1); Sodium 134 mmol/L (136-145); Total Bilirubin 0.3 mg/dL (0.15-1.2); Total Protein 6.8 g/dL (6.6-8.7)
[2023-05-16 07:14] LABS: Glucose Point of Care 125 mg/dL (70-110)
--- NOTE | 2023-05-16 08:17 | P.PN_ITS ---
Subjective Subjective: Patient had a cardiac catheterization yesterday which revealed a high-grade lesion in the ostium of the circumflex artery, LAD and distal left main. He is currently remaining symptom-free. Patient requires a revascularization procedure. Because of the high risk status, I contacted Dr. Cade at the [facility] [place], who accepted his transfer for further management. The patient is waiting for a bed . Medications: Medication Review Details: Current Medications Acetaminophen (Acetaminophen 325 Mg Tablet) 650 mg PO Q6H PRN PRN Reason: Mild/Mod Pain Or Temp >/= 101 Last Admin: 05/07/23 20:59 Dose: 650 mg Albuterol/Ipratropium (Ipratropium-Albuterol 3 Ml Neb) 3 ml INHALATION Q4H PRN PRN Reason: SHORTNESS OF BREATH Aspirin (Aspirin 81 Mg Ec Tablet) 81 mg PO DAILY [facility] Last Admin: 05/15/23 17:17 Dose: Not Given Atorvastatin Calcium (Atorvastatin 40 Mg Tablet) 80 mg PO DAILY [facility] Last Admin: 05/15/23 17:17 Dose: Not Given Bisacodyl (Bisacodyl 5 Mg Tablet) 5 mg PO DAILY PRN PRN Reason: CONSTIPATION Last Admin: 05/12/23 10:10 Dose: 5 mg Fludrocortisone Acetate (Fludrocortisone 0.1 Mg Tablet) 0.1 mg PO DAILY [facility] Last Admin: 05/15/23 17:18 Dose: Not Given Folic Acid (Folic Acid 1 Mg Tablet) 1 mg PO DAILY [facility] Last Admin: 05/15/23 17:18 Dose: Not Given Gabapentin (Gabapentin 100 Mg Capsule) 100 mg PO TID [facility] Last Admin: 05/15/23 20:55 Dose: 100 mg Heparin Sodium (Porcine) (Heparin, Porcine 1,000 Unit/Ml Inj 10 Ml) 10,000 unit INTRACATH PRN PRN; Protocol PRN Reason: FOR DIALYSIS USE ONLY Heparin Sodium (Porcine) (Heparin, Porcine 1,000 Unit/Ml Inj 10 Ml) 1,000 unit IV PRN PRN; Protocol PRN Reason: FOR DIALYSIS USE ONLY Heparin Sodium (Porcine) (Heparin 5,000 Unit/Ml Inj 1 Ml) 5,000 unit SUBCUT Q12H [facility] Last Admin: 05/15/23 23:32 Dose: 5,000 unit Hydroxyzine Pamoate (Hydroxyzine 25 Mg Capsule) 25 mg PO QID PRN PRN Reason: ANXIETY Last Admin: 05/15/23 18:38 Dose: 25 mg Albumin Human (Albumin) 12.5 gm in 50 mls @ 60 mls/hr IV PRN PRN PRN Reason: Hypotension and/or symptomatic Last Infusion: 05/13/23 19:44 Dose: Infused Sodium Chloride (Sodium Chloride 0.9%) 1,000 mls @ 0 mls/hr IV .Q0M PRN PRN Reason: hypotension or symptomatic Lactulose (Lactulose Oral Liq 20 Gm/30 Ml Udc) 10 gm PO DAILY PRN PRN Reason: Constipation Midodrine (Midodrine 5 Mg Tablet) 10 mg PO TID [facility] Last Admin: 05/15/23 20:55 Dose: 10 mg Naloxone HCl (Naloxone 0.4 Mg/Ml Sdv) 0.1 mg IVP Q2M PRN PRN Reason: OPIATERV Ondansetron HCl (Ondansetron 2 Mg/Ml Sdv 2 Ml) 4 mg IVP Q8H PRN PRN Reason: vomiting, or N/V if npo Last Admin: 05/15/23 04:17 Dose: 4 mg Oxycodone HCl (Oxycodone 5 Mg Ir Tab/Cap) 5 mg PO Q4H PRN PRN Reason: MODERATE PAIN Last Admin: 05/15/23 18:38 Dose: 5 mg Pantoprazole Sodium (Pantoprazole Dr 40 Mg Tablet) 40 mg PO DAILY [facility] Last Admin: 05/15/23 17:19 Dose: Not Given Polyethylene Glycol (Polyethylene Glycol 3350 Pkt 17 Gm) 17 gm PO BID [facility] Last Admin: 05/15/23 17:45 Dose: Not Given Sevelamer Carbonate (Sevelamer 800 Mg Tablet) 4,000 mg PO TIDWM [facility] Last Admin: 05/15/23 17:47 Dose: 4,000 mg Sevelamer Carbonate (Sevelamer 800 Mg Tablet) 3,200 mg PO BID PRN PRN Reason: WITH SNACKS Trazodone HCl (Trazodone 100 Mg Tablet) 100 mg PO BEDTIME [facility] Last Admin: 05/15/23 20:55 Dose: 100 mg Venlafaxine HCl (Venlafaxine Er (24hr) 75 Mg Capsule) 75 mg PO DAILY [facility] Last Admin: 05/15/23 17:19 Dose: Not Given Vitamin A/Vitamin D (Vitamin A & D Oint) 1 applic TOPICAL QID PRN PRN Reason: DRYNESS Last Admin: 05/09/23 09:01 Dose: 1 applic Vitals/I&O/Wt Last Vital Signs Temp 98.0 F 05/16/23 04:57 Pulse 92 05/16/23 06:16 Resp 14 05/16/23 06:16 BP 89/63 05/16/23 04:57 Pulse Ox 95 05/16/23 04:57 O2 Del Method Nasal Cannula 05/16/23 04:57 O2 Flow Rate 4 05/16/23 04:57 FiO2 28 05/15/23 00:00 05/15/23 05/16/23 05/16/23 22:59 06:59 14:59 Intake Total 480 / 480 Output Total 0 / 0 Balance 480 / 480 Physical Exam Narrative: GENERAL: The patient is alert and oriented times three. Not in any acute distress. HEENT: Moderate pallor. No icterus or lymphadenopathy.Oral cavity: There are no mucous membrane lesions. NECK: Trachea appears to be central. No masses noted. No JVD or thyromegaly appreciated. RESPIRATORY: Chest is symmetrical. No intercostals muscle retraction or any accessory muscle activation. There is no chest wall tenderness. Breath sounds are heard bilaterally. No rales or rhonchi heard. No evidence of any consolidation. BREASTS: Deferred. HEART: The heart sounds are normal. No S3 or S4. Short systolic murmur in the left sternal border. No diastolic murmurs.. No pericardial rub ABDOMEN: Obese and nontender. Minimal abdominal wall edema is present in the lower abdomen. Indurated edema in the lower abdomen, pubic region and into the scrotal. Bowel sounds are normally heard. : Deferred. Scrotal edema present RECTAL: Deferred. LYMPHATIC: No lymphadenopathy in the cervical region EXTREMITIES: Features of chronic venous stasis and multiple healing superficial ulcers with the blackish scabs, on the right side. Below-knee amputation on the left side. Right groin has no hematoma bleeding MUSCULOSKELETAL: No acute joint deformities or swelling SKIN: Features of chronic venous stasis and healing superficial ulcers in the right leg NEUROPSYCHIATRIC: The patient is alert and oriented x3. Appears to be in a good mood. No tremors or rigidity noted. Data 05/16/23 03:40 05/16/23 03:40 Other Labs: Laboratory Last Values WBC 5.71 10^3/uL (3.29-11.43) 05/16/23 03:40 RBC 3.57 10^6/uL (3.85-5.65) L 05/16/23 03:40 Hgb 8.80 g/dL (11.27-16.99) L 05/16/23 03:40 Hct 31.2 % (37-53) L 05/16/23 03:40 MCV 87.4 fl (82-101) 05/16/23 03:40 MCH 24.6 pg (27-33) L 05/16/23 03:40 MCHC 28.2 g/dL (30-55) L 05/16/23 03:40 RDW 17.1 % (12.1-15.1) H 05/16/23 03:40 Plt Count 135 10^3/cmm (157-399) L D 05/16/23 03:40 MPV 10.4 fL (7.4-10.4) 05/16/23 03:40 Neut % (Auto) 66.8 % 05/16/23 03:40 Lymph % (Auto) 13.7 % 05/16/23 03:40 [place] % (Auto) 10.7 % 05/16/23 03:40 Eos % (Auto) 6.7 % 05/16/23 03:40 Baso % (Auto) 1.4 % 05/16/23 03:40 Neut # (Auto) 3.82 10^3/uL (1.8-7.7) 05/16/23 03:40 Lymph # (Auto) 0.8 10^3/uL (0.8-4.8) 05/16/23 03:40 [place] # (Auto) 0.6 10^3/uL (0.2-0.9) 05/16/23 03:40 Eos # (Auto) 0.4 10^3/uL (0.0-0.8) 05/16/23 03:40 Baso # (Auto) 0.1 10^3/uL (0.0-0.1) 05/16/23 03:40 Nucleated RBC % (auto) 0 % 05/16/23 03:40 Nucleated RBCs # 0.0 /100WBC 05/16/23 03:40 Differential Comment Yes 05/14/23 15:30 APTT 68.5 SECONDS (23.9-36.7) H 05/10/23 05:50 Sodium 134 mmol/L (136-145) L 05/16/23 03:40 Potassium 5.1 mmol/L (3.5-5.1) 05/16/23 03:40 Chloride 94 mmol/L (98-107) L 05/16/23 03:40 Carbon Dioxide 29 mmol/L (22-29) 05/16/23 03:40 Anion Gap 16.1 (5-19) 05/16/23 03:40 BUN 46 mg/dL (6-20) H 05/16/23 03:40 Creatinine 5.4 mg/dL (0.7-1.2) H 05/16/23 03:40 GFR Calculation 11.2 mL/min (90-130) L 05/16/23 03:40 Glucose 115 mg/dL (65-115) 05/16/23 03:40 POC Glucose 134 mg/dL (70-110) H 05/16/23 11:49 Estimat Average Glucose 105 05/07/23 02:36 Hemoglobin A1c 5.3 % (4.0-6.0) 05/07/23 02:36 Calculated Osmolality 291 mOsm/kg (285-295) 05/16/23 03:40 Lactic Acid 1.6 mmol/L (0.5-2.2) 05/07/23 02:36 Lactate 1.3 mmol/L (0.5-2.2) 05/13/23 13:23 Calcium 8.3 mg/dL (8.5-10.5) L 05/16/23 03:40 Phosphorus 4.9 mg/dL (2.5-4.5) H 05/14/23 03:32 Magnesium 2.0 mg/dL (1.7-2.3) 05/14/23 03:32 Total Bilirubin 0.3 mg/dL (0.15-1.2) 05/16/23 03:40 AST 10 U/L (0-40) 05/16/23 03:40 ALT 8 U/L (0-41) 05/16/23 03:40 Alkaline Phosphatase 58 U/L (40-130) 05/16/23 03:40 Troponin T Baseline 1013 ng/L (0-15) H* 05/08/23 12:47 Troponin T 120 Minute 1104 ng/L (0-15) H 05/08/23 15:17 Delta Troponin T 91 ABS# (0-10) H* 05/08/23 15:17 Troponin T Hi Sens 6Hr 1153 ng/L (0-15) H 05/08/23 19:15 Troponin T Hi Sens 6Hr Delta 140 ng/L (0-12) H* 05/08/23 19:15 C-Reactive Protein 59.6 mg/L (0.0-4.9) H 05/13/23 04:17 NT-Pro-B Natriuret Pep 23021 pg/mL (0-125) H 05/07/23 02:36 Total Protein 6.8 g/dL (6.6-8.7) 05/16/23 03:40 Albumin 3.0 g/dL (3.5-5.2) L 05/16/23 03:40 Globulin 3.8 g/dL (1.3-4.6) 05/16/23 03:40 Triglycerides 134 mg/dL (0-150) 05/07/23 02:36 Cholesterol 90 mg/dL (0-200) 05/07/23 02:36 LDL Cholesterol, Calc 26 mg/dL (50-129) L 05/07/23 02:36 HDL Cholesterol 37 mg/dL (60-100) L 05/07/23 02:36 LDL/HDL Ratio 0.70 RATIO (0.00-3.22) 05/07/23 02:36 Cholesterol/HDL Ratio 2.43 mg/dL (1.0-5.00) 05/07/23 02:36 Procalcitonin 0.99 ng/mL (0-0.5) H 05/13/23 04:17 TSH 11.62 uIU/mL (0.27-4.20) H 05/07/23 02:36 Random Cortisol 14.54 ug/dL (2.47-19.5) 05/09/23 04:31 Fluid Color Pale yellow 05/14/23 15:30 Fluid Appearance Cloudy 05/14/23 15:30 Fluid Specific Grav 1.010 05/14/23 15:30 Fluid pH 8.0 05/14/23 15:30 Fluid WBC 203 /uL 05/14/23 15:30 Fluid RBC 2.000 10^3/uL 05/14/23 15:30 Fld Polynuclear WBCs # 0.030 05/14/23 15:30 Fld Polynuclear WBCs % 14.800 % 05/14/23 15:30 Fl Mononucl WBCs #(Auto) 0.173 05/14/23 15:30 Fl Mononuclear % Auto 85.200 % 05/14/23 15:30 Fld Crystal Laterality Na 05/14/23 15:30 Fluid Glucose 96.0 mg/dL 05/14/23 15:30 Fluid Total Protein 3.4 g/dL 05/14/23 15:30 Fluid Albumin 1.6 g/dL 05/14/23 15:30 Fluid LDH 102 U/L 05/14/23 15:30 Fluid Amylase 11 U/L 05/14/23 15:30 Fluid Alk Phosphatase 19 IU/L 05/14/23 15:30 Fluid Cholesterol 30 mg/dL (0-200) 05/14/23 15:30 Fluid Triglycerides 64 mg/dL (0-150) 05/14/23 15:30 Fluid Uric Acid 4 mg/dL 05/14/23 15:30 Hep Bs Antigen Non-reactive (Nonreactive) 05/07/23 02:36 Hep Bs Antibody 49.7 (11.5-1000) 05/07/23 02:36 Hep B Core Total Ab Non-reactive (Nonreactive) 05/07/23 02:36 Blood Type A Positive 05/08/23 13:38 Rho(D) Type Positive 05/08/23 13:38 Antibody Screen Negative 05/08/23 13:38 Crossmatch See Detail 05/08/23 13:38 Micro: Microbiology 05/14/23 15:30 Gram Stain - Final Peritoneal Fluid Anaerobic Culture - Preliminary Body Fluid Culture - Preliminary 05/07/23 14:30 Gram Stain - Final Peritoneal Fluid Anaerobic Culture - Preliminary Body Fluid Culture - Final A&P Assessment and plan (1) Left main coronary artery disease: This patient has features of severe left main equivalent disease. surgical revascularization would be ideal however in view of his multiple comorbidities, the surgical risk seems to be very high. High risk percutaneous intervention might be more appropriate. so for further management of his condition, he needw to be transferred to a facility where high risk procedures can be performed. Patient is awaiting transfer to the [facility] [place] (2) Elevated troponin I level: This may suggest a non-ST elevation myocardial infarction of type I. Currently the patient is pain-free. (3) CHF (congestive heart failure), NYHA class III: Clinically seems to be compensated. Patient is on hemodialysis. Management as per the nephrology. (4) End-stage renal disease on hemodialysis: Patient is on hemodialysis. Management as per the nephrology service. (5) Type 2 diabetes mellitus: The blood sugar seems to be fairly under control. May continue on the current management (6) Ascites: Status post large-volume paracentesis. Currently seems to be doing ok Plan Other problems are Low blood pressure, chronic, he is on midodrine and Florinef Patient is currently asymptomatic. May continue on the current medications. Discussed with Dr. Boucher about further management of his coronary artery disease. Attestations Medical Necessity Statement*: Possible transfer to the [facility] in [place] today Coding Level of Care Code 21493 Diagnoses Left main coronary artery disease I25.10 Elevated troponin I level R79.89 CHF (congestive heart failure), NYHA class III I50.9 End-stage renal disease on hemodialysis N18.6; Z99.2 Type 2 diabetes mellitus E11.9 Ascites R18.8
--- NOTE | 2023-05-16 08:57 | PM.PN ---
Subjective Subjective: s/p HD yesterday Medications: Reviewed: Yes Vitals/I&O/Wt Last Vital Signs Temp 98.0 F 05/16/23 04:57 Pulse 98 05/16/23 08:38 Resp 16 05/16/23 08:38 BP 89/63 05/16/23 08:24 Pulse Ox 99 05/16/23 08:38 O2 Del Method Nasal Cannula 05/16/23 08:39 O2 Flow Rate 2 05/16/23 08:39 FiO2 28 05/15/23 00:00 05/15/23 05/16/23 05/16/23 22:59 06:59 14:59 Intake Total 480 / 480 Output Total 0 / 0 0 / 0 Balance 480 / 480 0 / 0 Physical Exam Narrative: awake , alert HEENT mayo s1s2 rrr PER REPORT CRACKLES GARRY PER REPORT NO EDEMA Data 05/16/23 03:40 05/16/23 03:40 Micro: Microbiology 05/14/23 15:30 Gram Stain - Final Peritoneal Fluid Anaerobic Culture - Preliminary Body Fluid Culture - Preliminary 05/07/23 14:30 Gram Stain - Final Peritoneal Fluid Anaerobic Culture - Preliminary Body Fluid Culture - Final A&P Assessment and plan (1) End-stage renal disease on hemodialysis: Plan 1. End-stage renal disease on dialysis per TTS schedule,HD tomorrow -off pressors 2. Hyperkalemia: s/p kayexylate and low potassium diet 3. Acute on chronic respiratory failure, multifactorial, 4. Anemia: ALBERTO ordered.plan for PRBC transfusion 5. Liver cirrhosis with ascites and recurrent paracentesis, 6. History of diabetes with diabetic ulcers 7. chest pain : s/p LHC 8. Hypotension : midodrine added , trail of fludrocortisone Patient evaluated using audiovisual cart. Time spent 20 minutes Attestations Medical Necessity Statement*: per medicine Coding Level of Care Code Acute Code for Chg Fwd Diagnoses End-stage renal disease on hemodialysis N18.6; Z99.2
[2023-05-16] MEDS: aspirin 81 mg EC Tablet PO (09:07)
[2023-05-16] MEDS: pantoprazole DR 40 mg Tablet PO (09:07)
[2023-05-16] MEDS: polyethylene glycol 3350 Pkt 17 gm PO (09:07)
[2023-05-16] MEDS: atorvastatin 40 mg Tablet 80 MG PO (09:07)
[2023-05-16] MEDS: venlafaxine ER (24HR) 75 mg Capsule PO (09:07)
[2023-05-16] MEDS: fludrocortisone 0.1 mg Tablet PO (09:07)
[2023-05-16] MEDS: midodrine 5 mg TABLET 10 MG PO ×2 (09:07→15:04)
[2023-05-16] MEDS: sevelamer 800 mg Tablet 4000 MG PO ×3 (09:07→17:56)
[2023-05-16] MEDS: gabapentin 100 mg Capsule PO ×2 (09:07→15:04)
[2023-05-16] MEDS: folic acid 1 mg Tablet PO (09:08)
[2023-05-16 11:56] LABS: Glucose Point of Care 134 mg/dL (70-110)
[2023-05-16] MEDS: heparin 5,000 unit/mL INJ 1 mL 5000 UNIT SUBCUT (12:21)
--- NOTE | 2023-05-16 12:38 | P.TS_ITS ---
Transfer Summary Providers Date of Admission: 05/07/23 04:37 Date of Discharge/Transfer: 05/16/23 Attending Provider at Admission: Julio C Bal MD Attending Provider at Transfer: Edil Bonner MD Consults: Cardiology: Dr. Fernandez/Aroldo [facility] nephrology Primary Care Provider: Sulma Wetzel MD Transfer Plans: Anticipated date of transfer: 05/16/23 . Receiving Facility: [facility] . Receiving Provider: Dr. Diaz . Diagnoses at Discharge Discharge Diagnosis (1) Shock: Status: Acute (2) Chest pain: Status: Acute (3) Left main coronary artery disease: Status: Acute (4) End-stage renal disease on hemodialysis: Status: Acute (5) Type 2 diabetes mellitus: Status: Acute (6) Anasarca: Status: Acute (7) CHF (congestive heart failure), NYHA class III: Status: Acute (8) Abnormal TSH: Status: Acute (9) Constipation: Status: Acute Reason for Visit Reason for Visit RESP. DISTRESS Brief History: History as per H&P: Akil Velasco is a 53 year old male with a past medical history of end-stage renal disease on dialysis, history of recurrent abdominal ascites receiving outpatient paracentesis, history of CHF, history of left BKA, history of right diabetic ulcers, who presents to [facility] as he missed dialysis on Sunday, on Sunday morning, he developed shortness of breath, lower extremity edema, increased abdominal distention, his shortness of breath persisted, so he came to the emergency room for evaluation.? He denies any chest pain, palpitations, no lightheadedness, dizziness, no nausea, no vomiting does complain of abdominal distention, his last paracentesis was about a week ago, he does urinate a bit, denies any dysuria, Hospital Course Hospital Course Patient was admitted to the hospital further evaluation and management for hyperkalemia, fluid overload in setting of missing dialysis sessions. Nephrology was consulted and he underwent dialysis. During dialysis patient developed chest pain along with drop in blood pressures for which he was started on a heparin drip and received blood transfusion. Patient was transitioned to ICU and was started on vasopressors. Gradually patient's fluid status, chest pain resolved and blood pressures improved while he was transitioned to oral midodrine and Florinef. Patient underwent paracentesis and 8 L of fluid was removed. Cardiology was consulted. After achieving euvolemia and hemodynamic stability patient underwent cardiac stress test on 05/14 which was suggesting ischemia in distribution of LAD territory, small area of some reversibility in the basal inferior lateral region suggesting ischemia and circumflex territory. Patient underwent cardiac angiogram on 05/15 which was concerning for left main disease with heavily calcified, critical ostial to proximal LCx and severe ostial to proximal LAD stenosis. Given multiple comorbidities and result of cardiac angiogram patient was advised for surgical revascularization. Patient w as agreeable. Transfer was sought to [facility] given patient being a high risk surgical candidate. Patient was accepted at [facility] under Dr. Cade. He has been transferred in hemodynamically stable condition. Last dialysis session on 05/15. Physical Exam Narrative: General: Patient is awake and alert. Conversational. Head: Normocephalic. Atraumatic. EOM intact. Neck: No JVD. Cardiovascular: SNo gallops. Systolic murmur. 3-4+ edema in BLE. Lungs: Breath sounds slightly diminished in bilateral bases, no use of accessory muscles, no crackles or wheezes. Skin: No jaundice. No rashes. Multiple wounds on lower extremities. Abdomen: Normal bowel sounds, abdomen soft and nontender. Distended Genito Urinary: Scrotum is swollen, similiar to yesterdays exam. Extremities: No cyanosis or clubbing. Sp L BKA. Neurological: No myoclonus. TS Data Studies Completed and Pending Pending at discharge Category Date Time Status Cardiac Stress Test MIBI [Sestamibi Stress Test Request Exams 05/13/23 17:19 Ordered ] Routine Anaerobic Culture Routine Lab 05/07/23 14:30 Results Anaerobic Culture Routine Lab 05/14/23 15:30 Results Body Fluid Culture & GS Routine Lab 05/07/23 14:30 Results Body Fluid Culture & GS Routine Lab 05/14/23 15:30 Results Complete Blood Count w/Auto AM LABS Lab 05/16/23 04:00 Ordered Comprehensive Metabolic Panel AM LABS Lab 05/16/23 04:00 Ordered Mycobacteria, Culture w/Fluor Routine Lab 05/14/23 15:30 Received UASCOPE [Urinalysis and Microscopic] Routine Lab 05/07/23 16:45 Uncollected Cytology [PTH] Routine Pth 05/14/23 15:31 Received Labs from last 24 hours 05/15/23 05/15/23 05/15/23 07:12 04:40 04:40 WBC 5.46 RBC 3.69 L Hgb 9.10 L Hct 31.6 L MCV 85.6 MCH 24.7 L MCHC 28.8 L RDW 17.0 H Plt Count 99 L MPV 9.6 Neut % (Auto) 66.8 Lymph % (Auto) 13.6 [place] % (Auto) 10.1 Eos % (Auto) 8.4 Baso % (Auto) 0.7 Neut # (Auto) 3.65 Lymph # (Auto) 0.7 L [place] # (Auto) 0.6 Eos # (Auto) 0.5 Baso # (Auto) 0.0 Nucleated RBC % (auto) 0 Nucleated RBCs # 0.0 Sodium 136 Potassium 5.6 H Chloride 97 L Carbon Dioxide 27 Anion Gap 17.6 BUN 56 H Creatinine 6.5 H* GFR Calculation 9.0 L Glucose 93 POC Glucose 92 Calculated Osmolality 297 H Calcium 8.5 Total Bilirubin 0.3 AST 14 ALT 9 Alkaline Phosphatase 66 Total Protein 6.6 Albumin 2.5 L Globulin 4.1 05/14/23 23:03 WBC RBC Hgb Hct MCV MCH MCHC RDW Plt Count MPV Neut % (Auto) Lymph % (Auto) [place] % (Auto) Eos % (Auto) Baso % (Auto) Neut # (Auto) Lymph # (Auto) [place] # (Auto) Eos # (Auto) Baso # (Auto) Nucleated RBC % (auto) Nucleated RBCs # Sodium Potassium Chloride Carbon Dioxide Anion Gap BUN Creatinine GFR Calculation Glucose POC Glucose 96 Calculated Osmolality Calcium Total Bilirubin AST ALT Alkaline Phosphatase Total Protein Albumin Globulin Completed Studies During Hospitalization Category Date Time Status CT abdomen pelvis w con* [id number] Routine Cat Scan 05/07/23 16:50 Completed [employer]GER request for service Routine Exams 05/15/23 08:30 Completed Cardiac Stress Test MIBI [Sestamibi Stress Test Request Exams 05/13/23 17:41 Draft ] Routine XR chest 1V portable [id number] Stat Exams 05/07/23 02:27 Completed NM igor perf SPECT r/s* [id number] Routine Nuc Med 05/14/23 08:00 Completed CV. echo limited [id number] Routine Ultrasound 05/07/23 06:52 Com[place] w [id number] Routine Ultrasound 05/14/23 08:00 Completed [place] paracentesis abd w [id number] Stat Ultrasound 05/07/23 05:37 Completed Laboratory Last Values WBC 5.46 10^3/uL (3.29-11.43) 05/15/23 04:40 RBC 3.69 10^6/uL (3.85-5.65) L 05/15/23 04:40 Hgb 9.10 g/dL (11.27-16.99) L 05/15/23 04:40 Hct 31.6 % (37-53) L 05/15/23 04:40 MCV 85.6 fl (82-101) 05/15/23 04:40 MCH 24.7 pg (27-33) L 05/15/23 04:40 MCHC 28.8 g/dL (30-55) L 05/15/23 04:40 RDW 17.0 % (12.1-15.1) H 05/15/23 04:40 Plt Count 99 10^3/cmm (157-399) L 05/15/23 04:40 MPV 9.6 fL (7.4-10.4) 05/15/23 04:40 Neut % (Auto) 66.8 % 05/15/23 04:40 Lymph % (Auto) 13.6 % 05/15/23 04:40 [place] % (Auto) 10.1 % 05/15/23 04:40 Eos % (Auto) 8.4 % 05/15/23 04:40 Baso % (Auto) 0.7 % 05/15/23 04:40 Neut # (Auto) 3.65 10^3/uL (1.8-7.7) 05/15/23 04:40 Lymph # (Auto) 0.7 10^3/uL (0.8-4.8) L 05/15/23 04:40 [place] # (Auto) 0.6 10^3/uL (0.2-0.9) 05/15/23 04:40 Eos # (Auto) 0.5 10^3/uL (0.0-0.8) 05/15/23 04:40 Baso # (Auto) 0.0 10^3/uL (0.0-0.1) 05/15/23 04:40 Nucleated RBC % (auto) 0 % 05/15/23 04:40 Nucleated RBCs # 0.0 /100WBC 05/15/23 04:40 Differential Comment Yes 05/14/23 15:30 APTT 68.5 SECONDS (23.9-36.7) H 05/10/23 05:50 Sodium 136 mmol/L (136-145) 05/15/23 04:40 Potassium 5.6 mmol/L (3.5-5.1) H 05/15/23 04:40 Chloride 97 mmol/L (98-107) L 05/15/23 04:40 Carbon Dioxide 27 mmol/L (22-29) 05/15/23 04:40 Anion Gap 17.6 (5-19) 05/15/23 04:40 BUN 56 mg/dL (6-20) H 05/15/23 04:40 Creatinine 6.5 mg/dL (0.7-1.2) H* 05/15/23 04:40 GFR Calculation 9.0 mL/min (90-130) L 05/15/23 04:40 Glucose 93 mg/dL (65-115) 05/15/23 04:40 POC Glucose 92 mg/dL (70-110) 05/15/23 07:12 Estimat Average Glucose 105 05/07/23 02:36 Hemoglobin A1c 5.3 % (4.0-6.0) 05/07/23 02:36 Calculated Osmolality 297 mOsm/kg (285-295) H 05/15/23 04:40 Lactic Acid 1.6 mmol/L (0.5-2.2) 05/07/23 02:36 Lactate 1.3 mmol/L (0.5-2.2) 05/13/23 13:23 Calcium 8.5 mg/dL (8.5-10.5) 05/15/23 04:40 Phosphorus 4.9 mg/dL (2.5-4.5) H 05/14/23 03:32 Magnesium 2.0 mg/dL (1.7-2.3) 05/14/23 03:32 Total Bilirubin 0.3 mg/dL (0.15-1.2) 05/15/23 04:40 AST 14 U/L (0-40) 05/15/23 04:40 ALT 9 U/L (0-41) 05/15/23 04:40 Alkaline Phosphatase 66 U/L (40-130) 05/15/23 04:40 Troponin T Baseline 1013 ng/L (0-15) H* 05/08/23 12:47 Troponin T 120 Minute 1104 ng/L (0-15) H 05/08/23 15:17 Delta Troponin T 91 ABS# (0-10) H* 05/08/23 15:17 Troponin T Hi Sens 6Hr 1153 ng/L (0-15) H 05/08/23 19:15 Troponin T Hi Sens 6Hr Delta 140 ng/L (0-12) H* 05/08/23 19:15 C-Reactive Protein 59.6 mg/L (0.0-4.9) H 05/13/23 04:17 NT-Pro-B Natriuret Pep 99527 pg/mL (0-125) H 05/07/23 02:36 Total Protein 6.6 g/dL (6.6-8.7) 05/15/23 04:40 Albumin 2.5 g/dL (3.5-5.2) L 05/15/23 04:40 Globulin 4.1 g/dL (1.3-4.6) 05/15/23 04:40 Triglycerides 134 mg/dL (0-150) 05/07/23 02:36 Cholesterol 90 mg/dL (0-200) 05/07/23 02:36 LDL Cholesterol, Calc 26 mg/dL (50-129) L 05/07/23 02:36 HDL Cholesterol 37 mg/dL (60-100) L 05/07/23 02:36 LDL/HDL Ratio 0.70 RATIO (0.00-3.22) 05/07/23 02:36 Cholesterol/HDL Ratio 2.43 mg/dL (1.0-5.00) 05/07/23 02:36 Procalcitonin 0.99 ng/mL (0-0.5) H 05/13/23 04:17 TSH 11.62 uIU/mL (0.27-4.20) H 05/07/23 02:36 Random Cortisol 14.54 ug/dL (2.47-19.5) 05/09/23 04:31 Fluid Color Pale yellow 05/14/23 15:30 Fluid Appearance Cloudy 05/14/23 15:30 Fluid Specific Grav 1.010 05/14/23 15:30 Fluid pH 8.0 05/14/23 15:30 Fluid WBC 203 /uL 05/14/23 15:30 Fluid RBC 2.000 10^3/uL 05/14/23 15:30 Fld Polynuclear WBCs # 0.030 05/14/23 15:30 Fld Polynuclear WBCs % 14.800 % 05/14/23 15:30 Fl Mononucl WBCs #(Auto) 0.173 05/14/23 15:30 Fl Mononuclear % Auto 85.200 % 05/14/23 15:30 Fld Crystal Laterality Na 05/14/23 15:30 Fluid Glucose 96.0 mg/dL 05/14/23 15:30 Fluid Total Protein 3.4 g/dL 05/14/23 15:30 Fluid Albumin 1.6 g/dL 05/14/23 15:30 Fluid LDH 102 U/L 05/14/23 15:30 Fluid Amylase 11 U/L 05/14/23 15:30 Fluid Alk Phosphatase 19 IU/L 05/14/23 15:30 Fluid Cholesterol 30 mg/dL (0-200) 05/14/23 15:30 Fluid Triglycerides 64 mg/dL (0-150) 05/14/23 15:30 Fluid Uric Acid 4 mg/dL 05/14/23 15:30 Hep Bs Antigen Non-reactive (Nonreactive) 05/07/23 02:36 Hep Bs Antibody 49.7 (11.5-1000) 05/07/23 02:36 Hep B Core Total Ab Non-reactive (Nonreactive) 05/07/23 02:36 Blood Type A Positive 05/08/23 13:38 Rho(D) Type Positive 05/08/23 13:38 Antibody Screen Negative 05/08/23 13:38 Crossmatch See Detail 05/08/23 13:38 Radiology Impressions Chest X-Ray 05/07/23 02:27 IMPRESSION: 1. No acute findings and no change. 2. Stable mild cardiomegaly. Abdomen/Pelvis CT 05/07/23 16:50 IMPRESSION: 1. Negative for focal acute inflammatory process in the abdomen or pelvis. 2. Anasarca. 3. Coronary artery atherosclerotic calcifications. 4. Cardiomegaly. 5. Bibasilar atelectasis. 6. Hepatic steatosis. 7. Spleen enlarged to 17 cm. 8. Bilateral chronic renal atrophy. 9. Moderate to large amount of abdominal ascites. 10. Constipation. 11. Diverticulosis without diverticulitis. 12. L1 vertebral body chronic appearing compression fracture without retropulsion of bony fragments, similar to prior exam. 13. Scattered enlarged periaortic lymph nodes measuring up to 17 mm short axis, similar to prior exam, nonspecific. Cardiac Stress test: PERFUSION FINDINGS ?Small to moderate area of moderately decreased tracer uptake was noted in the ?mid and apical anterior, apical septal and in the apex.? Some reversibility was ?noted in this regions at rest.? Small area of slightly decreased tracer uptake ?was noted in the basal inferolateral region with some reversibility. ?FUNCTIONAL RESULTS ? ? (calculated via Gated SPECT) ? Stress Image LV EF (%):? ? 49 ? Stress EDV (mL):222? TID:? 1.45 ? Stress ESV (mL):113 ?FUNCTIONAL FINDINGS: ?Segmental wall motion analysis revealed severe diffuse hypokinesia of the ?septum and the LV apex.? The transient ischemic dilatation ratio was 1.45 ?IMPRESSIONS ?1.? Myocardial perfusion imaging revealing small to moderate area of reversible ?defect in the anterior , septal and apical regions, suggesting ischemia in ?distribution of the left anterior descending artery.? A small area of some ?reversibility in the basal inferolateral region suggesting ischemia in the ?distribution of the circumflex artery. ?2.? Slightly diminished LV ejection fraction of 49%. ?3.? LV wall motion analysis revealed a severe diffuse hypokinesia of the septum ?and the LV apex. ?4.? Moderately dilated LV cavity with end-systolic volume of 113 ml. ?No similar previous studies are available for comparison ?Dr Shirin Kendrick MD [facility] ?(Electronically Signed) ?Final Date:? ? ? 14 May 2023 Cardiac Cath: Conclusions ? 1. Patient has significant distal left main disease ? 2. , heavily calcified, critical ostial ? 3. to proximal left circumflex artery stenosis and severe ? 4. ostial to proximal LAD stenosis.. ? 5. Right common femoral artery angiogram shows normal sized vessel without significant disease. Recent Clincial Data Last Vital Signs Temp 96.8 F L 05/13/23 21:44 Pulse 88 05/15/23 15:15 Resp 1 L 10/17/23 16:00 BP 92/54 05/15/23 16:00 Pulse Ox 96 05/15/23 16:00 O2 Del Method Nasal Cannula 05/15/23 08:30 O2 Flow Rate 3 05/15/23 08:30 FiO2 28 05/15/23 00:00 Vital Signs Pulse Resp BP Pulse Ox O2 Del Method O2 Flow Rate 05/15/23 16:00 1 L 92/54 96 05/15/23 15:45 16 96/60 97 05/15/23 15:30 19 H 99/63 93 05/15/23 15:15 88 12 91/67 97 05/15/23 15:00 89 13 98 05/15/23 14:46 23 H 05/15/23 11:00 117/58 05/15/23 10:45 0 L 109/68 88 L 05/15/23 10:30 92 6 L 109/69 90 05/15/23 10:15 95 4 L 94/58 96 05/15/23 10:00 93 2 L 100/56 95 05/15/23 09:54 91 13 85 L 05/15/23 08:30 93 16 102/65 96 Nasal Cannula 3 05/15/23 08:00 93 16 87/56 96 Nasal Cannula 3 05/15/23 07:30 93 17 107/86 96 Nasal Cannula 3 05/15/23 07:00 94 13 111/68 94 Nasal Cannula 3 05/15/23 06:30 93 14 101/63 94 Nasal Cannula 3 05/15/23 07:53 93 18 97 Nasal Cannula 3 05/15/23 06:00 93 15 99/66 96 05/15/23 06:00 90 Intake & Output/Weight 05/13/23 05/14/23 05/15/23 05/16/23 06:59 06:59 06:59 06:59 Intake Total 1768.844 / 2273.098 8291 / 1800 484.445 / 484.445 0 / 0 Output Total 2684 / 2684 8000 / 8000 Balance 1768.844 / 1768.844 -884 / -884 -7515.555 / -7515.555 0 / 0 Weight 135.8 kg Vitals Last Vital Signs Temp 96.8 F L 05/13/23 21:44 Pulse 88 05/15/23 15:15 Resp 1 L 05/15/23 16:00 BP 92/54 05/15/23 16:00 Pulse Ox 96 05/15/23 16:00 O2 Del Method Nasal Cannula 05/15/23 08:30 O2 Flow Rate 3 05/15/23 08:30 FiO2 28 05/15/23 00:00 TS Medications Medications Acetaminophen (Acetaminophen 325 Mg Tablet) 650 mg PO Q6H PRN PRN Reason: Mild/Mod Pain Or Temp >/= 101 Last Admin: 05/07/23 20:59 Dose: 650 mg Albuterol/Ipratropium (Ipratropium-Albuterol 3 Ml Neb) 3 ml INHALATION Q4H PRN PRN Reason: SHORTNESS OF BREATH Aspirin (Aspirin 81 Mg Ec Tablet) 81 mg PO DAILY [facility] Last Admin: 05/15/23 17:17 Dose: Not Given Atorvastatin Calcium (Atorvastatin 40 Mg Tablet) 80 mg PO DAILY [facility] Last Admin: 05/15/23 17:17 Dose: Not Given Bisacodyl (Bisacodyl 5 Mg Tablet) 5 mg PO DAILY PRN PRN Reason: CONSTIPATION Last Admin: 05/12/23 10:10 Dose: 5 mg Fludrocortisone Acetate (Fludrocortisone 0.1 Mg Tablet) 0.1 mg PO DAILY [facility] Last Admin: 05/15/23 17:18 Dose: Not Given Folic Acid (Folic Acid 1 Mg Tablet) 1 mg PO DAILY [facility] Last Admin: 05/15/23 17:18 Dose: Not Given Gabapentin (Gabapentin 100 Mg Capsule) 100 mg PO TID [place] Last Admin: 05/15/23 17:18 Dose: Not Given Heparin Sodium (Porcine) (Heparin, Porcine 1,000 Unit/Ml Inj 10 Ml) 10,000 unit INTRACATH PRN PRN; Protocol PRN Reason: FOR DIALYSIS USE ONLY Heparin Sodium (Porcine) (Heparin, Porcine 1,000 Unit/Ml Inj 10 Ml) 1,000 unit IV PRN PRN; Protocol PRN Reason: FOR DIALYSIS USE ONLY Heparin Sodium (Porcine) (Heparin 5,000 Unit/Ml Inj 1 Ml) 5,000 unit SUBCUT Q12H [place] Last Admin: 05/15/23 17:19 Dose: Not Given Hydroxyzine Pamoate (Hydroxyzine 25 Mg Capsule) 25 mg PO QID PRN PRN Reason: ANXIETY Last Admin: 05/15/23 07:41 Dose: 25 mg Albumin Human (Albumin) 12.5 gm in 50 mls @ 60 mls/hr IV PRN PRN PRN Reason: Hypotension and/or symptomatic Last Infusion: 05/13/23 19:44 Dose: Infused Sodium Chloride (Sodium Chloride 0.9%) 1,000 mls @ 0 mls/hr IV .Q0M PRN PRN Reason: hypotension or symptomatic Lactulose (Lactulose Oral Liq 20 Gm/30 Ml Udc) 10 gm PO DAILY PRN PRN Reason: Constipation Midodrine (Midodrine 5 Mg Tablet) 10 mg PO TID [facility] Last Admin: 05/15/23 17:18 Dose: Not Given Naloxone HCl (Naloxone 0.4 Mg/Ml Sdv) 0.1 mg IVP Q2M PRN PRN Reason: OPIATERV Ondansetron HCl (Ondansetron 2 Mg/Ml Sdv 2 Ml) 4 mg IVP Q8H PRN PRN Reason: vomiting, or N/V if npo Last Admin: 05/15/23 04:17 Dose: 4 mg Oxycodone HCl (Oxycodone 5 Mg Ir Tab/Cap) 5 mg PO Q4H PRN PRN Reason: MODERATE PAIN Last Admin: 05/14/23 17:22 Dose: 5 mg Pantoprazole Sodium (Pantoprazole Dr 40 Mg Tablet) 40 mg PO DAILY [facility] Last Admin: 05/15/23 17:19 Dose: Not Given Polyethylene Glycol (Polyethylene Glycol 3350 Pkt 17 Gm) 17 gm PO BID [facility] Last Admin: 05/15/23 17:19 Dose: Not Given Sevelamer Carbonate (Sevelamer 800 Mg Tablet) 4,000 mg PO TIDWM [facility] Last Admin: 05/15/23 17:20 Dose: Not Given Sevelamer Carbonate (Sevelamer 800 Mg Tablet) 3,200 mg PO BID PRN PRN Reason: WITH SNACKS Trazodone HCl (Trazodone 100 Mg Tablet) 100 mg PO BEDTIME [facility] Last Admin: 05/14/23 20:26 Dose: 100 mg Venlafaxine HCl (Venlafaxine Er (24hr) 75 Mg Capsule) 75 mg PO DAILY [facility] Last Admin: 05/15/23 17:19 Dose: Not Given Vitamin A/Vitamin D (Vitamin A & D Oint) 1 applic TOPICAL QID PRN PRN Reason: DRYNESS Last Admin: 05/09/23 09:01 Dose: 1 applic Discontinued Medications Albuterol Sulfate (Albuterol 2.5 Mg/3 Ml Neb) 2.5 mg INHALATION ONCE ONE Stop: 05/07/23 03:33 Last Admin: 05/07/23 04:30 Dose: 2.5 mg Aspirin (Aspirin 325 Mg Tablet) 325 mg PO ONCE ONE Stop: 05/14/23 17:45 Last Admin: 05/15/23 07:23 Dose: Not Given Aspirin (Aspirin 325 Mg Tablet) 325 mg PO ONCE ONE Stop: 05/15/23 07:01 Last Admin: 05/15/23 06:08 Dose: 325 mg Aspirin (Aspirin 325 Mg Tablet) 325 mg PO ONCE ONE Stop: 05/15/23 07:24 Last Admin: 05/15/23 07:25 Dose: Not Given Atorvastatin Calcium (Atorvastatin 40 Mg Tablet) 40 mg PO DAILY [facility] Last Admin: 05/07/23 13:28 Dose: 40 mg Atropine Sulfate (Atropine 0.1 Mg/Ml Syr 10 Ml) 0.5 mg IVP PRN PRN PRN Reason: HEART RATE-LOW Stop: 05/15/23 06:15 Last Admin: 05/14/23 10:51 Dose: 0.5 mg Bisacodyl (Bisacodyl 10 Mg Supp) 10 mg [place] DAILY PRN PRN Reason: Constip Calcium Gluconate (Calcium Gluconate 0.1 Gm/Ml 10% Sdv 10ml) 1 gm IVP ONCE ONE Stop: 05/07/23 03:23 Last Admin: 05/07/23 03:42 Dose: Not Given Cilostazol (Cilostazol 100 Mg Tablet) 50 mg PO BID [facility] Last Admin: 05/08/23 09:02 Dose: 50 mg Dextrose (Dextrose 50% Syringe 50 Ml) 50 ml IVP ONCE ONE Stop: 05/07/23 03:23 Last Admin: 05/07/23 03:42 Dose: Not Given Diphenhydramine HCl (Diphenhydramine 50 Mg Capsule) 50 mg PO ONCE ONE Stop: 05/14/23 17:45 Last Admin: 05/15/23 07:24 Dose: Not Given Diphenhydramine HCl (Diphenhydramine 50 Mg Capsule) 50 mg PO ONCE ONE Stop: 05/15/23 07:01 Last Admin: 05/15/23 06:08 Dose: 50 mg Diphenhydramine HCl (Diphenhydramine 50 Mg Capsule) 50 mg PO ONCE ONE Stop: 05/15/23 07:24 Last Admin: 05/15/23 07:25 Dose: Not Given Doxycycline Monohydrate (Doxycycline 100 Mg Tablet) 100 mg PO BID [facility]; Protocol Last Admin: 05/14/23 17:21 Dose: 100 mg Enoxaparin Sodium (Enoxaparin 30 Mg/0.3 Ml Syringe) 30 mg SUBCUT Q24H [facility] Epoetin Zachary (Epoetin Zachary 1000 Unit/0.05 Ml (Esrd)) 20,000 unit SUBCUT NOW ONE Stop: 05/07/23 08:31 Last Admin: 05/07/23 12:32 Dose: 20,000 unit Epoetin Zachary (Epoetin Zachary 1000 Unit/0.05 Ml (Non-Esrd)) 20,000 unit SUBCUT NOW ONE Stop: 05/08/23 11:31 Last Admin: 05/08/23 12:32 Dose: 20,000 unit Epoetin Zachary (Epoetin Zachary 1000 Unit/0.05 Ml (Esrd)) 20,000 unit SUBCUT NOW ONE Stop: 05/13/23 07:46 Last Admin: 05/13/23 08:31 Dose: 20,000 unit Epoetin Zachary (Epoetin Zachary 1000 Unit/0.05 Ml (Esrd)) 20,000 unit SUBCUT NOW ONE Stop: 05/15/23 08:31 Last Admin: 05/15/23 07:37 Dose: 20,000 unit Esmolol HCl (Esmolol 100 Mg/10 Ml Sdv) 5 mg IV PRN PRN PRN Reason: HEART RATE-HIGH Stop: 05/15/23 06:16 Last Admin: 05/14/23 11:03 Dose: 5 mg Fentanyl (Fentanyl 50 Mcg/Ml Inj 2ml) Confirm Administered Dose 100 mcg .ROUTE .STK-MED ONE Stop: 05/15/23 07:32 Furosemide (Furosemide 10 Mg/Ml Sdv 4ml) 40 mg IVP ONCE ONE Stop: 05/07/23 05:29 Last Admin: 05/07/23 06:06 Dose: 40 mg Gabapentin (Gabapentin 300 Mg Capsule) 300 mg PO TID [facility] Last Admin: 05/09/23 08:50 Dose: 300 mg Gabapentin (Gabapentin 300 Mg Capsule) 100 mg PO TID [facility] Last Admin: 05/09/23 10:47 Dose: Not Given Heparin Sodium (Porcine) (Heparin 5,000 Unit/Ml Inj 1 Ml) 0 unit IV PRN PRN; Protocol PRN Reason: Heparin weight-base protocol Last Admin: 05/07/23 08:15 Dose: 6,800 unit Heparin Sodium (Porcine) (Heparin 5,000 Unit/Ml Inj 1 Ml) 5,000 unit SUBCUT Q12H [facility] Last Admin: 05/08/23 14:32 Dose: Not Given Heparin Sodium (Porcine) (Heparin 5,000 Unit/Ml Inj 1 Ml) 0 unit IV PRN PRN; Protocol PRN Reason: Heparin weight-base protocol Last Admin: 05/09/23 17:10 Dose: 5,000 unit Heparin Sodium (Porcine) (Heparin, Porcine 1,000 Unit/Ml Inj 10 Ml) 10,000 unit INTRACATH ONCE ONE Stop: 05/09/23 16:56 Last Admin: 05/10/23 07:24 Dose: Not Given Heparin Sodium (Porcine) (Heparin, Porcine 1,000 Unit/Ml Inj 10 Ml) 1,000 unit IV ONCE ONE Stop: 05/09/23 16:56 Last Admin: 05/10/23 07:25 Dose: Not Given Heparin Sodium (Porcine) (Heparin, Porcine 1,000 Unit/Ml Inj 10 Ml) 10,000 unit INTRACATH ONCE ONE Stop: 05/11/23 09:09 Last Admin: 05/11/23 11:10 Dose: Not Given Heparin Sodium (Porcine) (Heparin, Porcine 1,000 Unit/Ml Inj 10 Ml) 1,000 unit IV ONCE ONE Stop: 05/11/23 09:09 Last Admin: 05/11/23 11:10 Dose: 1,000 unit Heparin Sodium (Porcine) (Heparin, Porcine 1,000 Unit/Ml Inj 10 Ml) 10,000 unit INTRACATH ONCE ONE Stop: 05/13/23 07:22 Last Admin: 05/14/23 09:16 Dose: Not Given Heparin Sodium (Porcine) (Heparin, Porcine 1,000 Unit/Ml Inj 10 Ml) 1,000 unit IV ONCE ONE Stop: 05/13/23 07:22 Last Admin: 05/13/23 16:37 Dose: 1,000 unit Heparin Sodium (Porcine) (Heparin 5,000 Unit/Ml Inj 1 Ml) Confirm Administered Dose 5,000 unit .ROUTE .[facility] ONE Stop: 05/15/23 07:32 Albumin Human (Albumin) 12.5 gm in 50 mls @ 60 mls/hr IV PRN PRN PRN Reason: Hypotension and/or symptomatic Last Infusion: 05/08/23 19:00 Dose: Infused Sodium Chloride (Sodium Chloride 0.9%) 1,000 mls @ 0 mls/hr IV .Q0M PRN PRN Reason: hypotension or symptomatic Heparin Sodium/Sodium Chloride (Heparin Drip) 25,000 unit in 500 mls @ 0 mls/hr IV .Q0M [place]; Protocol Last Titration: 05/08/23 19:00 Dose: Infused Vancomycin HCl / Sodium (Chloride) 250 mls @ 0 mls/hr [id number] PROTOCOL [place]; Protocol Piperacillin Sod/Tazobactam (Sod 3.375 gm/ Sodium Chloride) 50 mls @ 12.5 mls/hr IV Q12H [place]; Protocol Last Infusion: 05/15/23 01:16 Dose: Infused Vancomycin/PEG/[place]/Lysine/Water (Vancocin) 2,000 mg in 400 mls @ 200 mls/hr IV ONCE ONE Stop: 05/08/23 11:14 Last Admin: 05/08/23 10:31 Dose: Not Given Heparin Sodium/Sodium Chloride (Heparin Drip) 25,000 unit in 500 mls @ 0 mls/hr IV .Q0M [place]; Protocol Last Titration: 05/10/23 08:15 Dose: 0 unit/kg/hr, 0 mls/hr Norepinephrine Bitartrate 4 mg (/ Dextrose) 254 mls @ 0 mls/hr IV .Q0M [place]; Protocol Last Titration: 05/12/23 09:51 Dose: 0 mcg/min, 0 mls/hr Albumin Human (Albumin) 12.5 gm in 50 mls @ 60 mls/hr IV PRN PRN PRN Reason: Hypotension and/or symptomatic Sodium Chloride (Sodium Chloride 0.9%) 1,000 mls @ 0 mls/hr IV .Q0M PRN PRN Reason: hypotension or symptomatic Albumin Human (Albumin) 12.5 gm in 50 mls @ 60 mls/hr IV PRN PRN PRN Reason: Hypotension and/or symptomatic Sodium Chloride (Sodium Chloride 0.9%) 1,000 mls @ 0 mls/hr IV .Q0M PRN PRN Reason: hypotension or symptomatic Dobutamine HCl 200 mg/ Sodium (Chloride) 50 mls @ 0 mls/hr IV .Q0M PRN; Protocol PRN Reason: per protocol Last Titration: 05/14/23 10:50 Dose: Infused Sodium Chloride (Sodium Chloride 0.9%) 1,000 mls @ 50 mls/hr IV .Q20H ONE Stop: 05/15/23 13:43 Sodium Chloride (Sodium Chloride 0.9%) 1,000 mls @ 50 mls/hr IV .Q20H ONE Stop: 05/16/23 02:59 Last Admin: 05/15/23 06:09 Dose: 50 mls/hr Lidocaine HCl (Xylocaine) Confirm Administered Dose 1 mls @ as directed .ROUTE .STK-MED ONE Stop: 05/15/23 07:33 Insulin Human Regular (Insulin Regular-Human 100 Units/1 Ml) 10 unit IVP ONCE ONE Stop: 05/07/23 03:23 Last Admin: 05/07/23 03:43 Dose: Not Given Iohexol (Iohexol 350 Mg/Ml 500 Ml Btl (Per Ml)) 0 ml IV ONCE ONE Stop: 05/07/23 17:38 Last Admin: 05/07/23 17:37 Dose: 100 ml Metoprolol Tartrate (Metoprolol Tartrate 1 Mg/1 Ml Sdv 5 Ml) 5 mg IV PRN PRN PRN Reason: HEART RATE-HIGH Midazolam HCl (Midazolam 1 Mg/Ml Inj 2 Ml) Confirm Administered Dose 2 mg .ROUTE .STK-MED ONE Stop: 05/15/23 07:31 Midodrine (Midodrine 5 Mg Tablet) 5 mg PO ONCE ONE Stop: 05/07/23 16:43 Last Admin: 05/07/23 16:54 Dose: 5 mg Midodrine (Midodrine 5 Mg Tablet) 2.5 mg PO TID [facility] Last Admin: 05/07/23 21:00 Dose: 2.5 mg Midodrine (Midodrine 5 Mg Tablet) 5 mg PO TID [facility] Last Admin: 05/09/23 20:35 Dose: 5 mg Morphine Sulfate (Morphine 4 Mg/Ml Sdv 1 Ml) 1 mg IVP Q4H PRN PRN Reason: SEVERE PAIN Last Admin: 05/07/23 07:32 Dose: 1 mg Morphine Sulfate (Morphine 4 Mg/Ml Sdv 1 Ml) 2 mg IVP Q4H PRN PRN Reason: SEVERE PAIN Last Admin: 05/07/23 13:26 Dose: 2 mg Morphine Sulfate (Morphine 4 Mg/Ml Sdv 1 Ml) 1 mg IVP Q4H PRN PRN Reason: SEVERE PAIN Last Admin: 05/08/23 09:17 Dose: 1 mg Nitroglycerin (Nitroglycerin 0.4 Mg Sublingual Tablet) 0.4 mg SUBLINGUAL Q5M PRN PRN Reason: CHEST PAIN Stop: 05/15/23 06:15 Non-Formulary Medication (Sodium Zirconium Cyclosilicate [Lokelma]) 0 gm PO .COMPLEX [place] Ondansetron HCl (Ondansetron 2 Mg/Ml Sdv 2 Ml) 4 mg IVP Q2M PRN PRN Reason: NAUSEA Oxycodone/Acetaminophen (Oxycodone-Apap 5-325 Mg Tablet) 1 tab PO ONCE ONE Stop: 05/07/23 05:58 Last Admin: 05/07/23 06:04 Dose: 1 tab Sodium Bicarbonate (Sodium Bicarbonate 8.4% 1 Meq/Ml 50ml Syr) 50 meq IVP ONCE ONE Stop: 05/07/23 03:34 Last Admin: 05/07/23 03:48 Dose: 50 meq Sodium Chloride (Sodium Chloride 0.9% 100 Ml Bag) 50 ml IV PRN PRN PRN Reason: Blood transfusion prime and flush Stop: 05/09/23 13:02 Sodium Chloride (Sodium Chloride 0.9% 100 Ml Bag) 50 ml IV PRN PRN PRN Reason: Blood transfusion prime and flush Stop: 05/12/23 08:40 Sodium Polystyrene Sulfonate (Sodium Polystyrene Sulfonate 15 Gm/60 Ml Btl) 30 gm PO ONCE ONE Stop: 05/09/23 10:33 Last Admin: 05/09/23 10:46 Dose: 30 gm Allergies linezolid [From Zyvox] Allergy (Verified 05/07/23 02:33) tendonitis ciprofloxacin [From Cipro] Adverse Reaction (Severe, Verified 05/07/23 02:33) Tendonitis Home Medications Wheel Chair #1 ea 08/18/21 [Rx Confirmed 05/07/23] ropinirole 0.25 mg tablet 0.25 mg PO BEDTIME PRN Restless Leg(S) 08/22/21 [History Confirmed 05/07/23] sodium zirconium cyclosilicate 5 gram oral powder packet (Lokelma) See Rx Instructions .Route .COMPLEX 08/22/21 [History Confirmed 05/07/23] ondansetron HCl 4 mg tablet 4 mg PO Q4H PRN Nausea 04/11/22 [History Confirmed 05/07/23] Compression Stockings #1 ea 04/12/22 [Rx Confirmed 05/07/23] [place] boot modification #1 ea 07/17/22 [Rx Confirmed 05/07/23] oxycodone 5 mg tablet 5 mg PO Q6H PRN Pain 08/16/22 [History Confirmed 05/07/23] sevelamer carbonate 800 mg tablet See Rx Instructions .Route .COMPLEX 09/18/22 [History Confirmed 05/07/23] B-complex with vitamin C 1 cap PO QAM 10/16/22 [History Confirmed 05/07/23] albuterol sulfate 90 mcg/actuation aerosol inhaler 2 puff inhalation Q6H PRN Shortness Of Breath 10/16/22 [History Confirmed 05/07/23] bisacodyl 10 mg rectal suppository (Dulcolax (bisacodyl)) 10 mg [place] DAILY PRN Constipation 10/16/22 [History Confirmed 05/07/23] brexpiprazole 0.25 mg tablet 0.25 mg PO QAM 10/16/22 [History Confirmed 05/07/23] diphenhydramine HCl 25 mg tablet (Benadryl Allergy) 25 mg PO DAILY PRN itching 10/16/22 [History Confirmed 05/07/23] hydroxyzine HCl 25 mg tablet 25 mg PO Q6H PRN Anxiety 10/16/22 [History Confirmed 05/07/23] polyethylene glycol 3350 17 gram/dose oral powder (Miralax) 17 g PO BID PRN Constipation 10/16/22 [History Confirmed 05/07/23] venlafaxine 75 mg capsule,extended release 24 hr (Effexor XR) 75 mg PO QAM 10/16/22 [History Confirmed 05/07/23] Prevalon boot #1 ea 11/21/22 [Rx Confirmed 05/07/23] cilostazol 50 mg tablet 50 mg PO BID 11/21/22 [History Confirmed 05/07/23] trazodone 100 mg tablet 100 mg PO BEDTIME PRN Sleep 11/21/22 [History Confirmed 05/07/23] diabetic shoes with 3 heat molded insoles #1 ea 12/15/22 [Rx Confirmed 05/07/23] gabapentin 300 mg capsule 300 mg PO TID PRN NERVE PAIN 01/02/23 [History Confirmed 05/07/23] atorvastatin 80 mg tablet 80 mg PO QAM 05/07/23 [History Confirmed 05/07/23] escitalopram oxalate 10 mg tablet 10 mg PO QAM 05/07/23 [History Confirmed 05/07/23] vit B,C-folic ac 800 mcg-zinc 12.5 mg-selen-D3 2,000 unit-vit E tablet (RenaPlex-D) 1 tab PO QAM 05/07/23 [History Confirmed 05/07/23] Discharge Plan Discharge Patient Disposition: Xfer Other Condition: Stable Prescriptions: No Action (DME) Wheel Chair See Rx Instructions .Route .MEDSUPPLY Qty: 1 0RF Rx Instructions: As directed HOME (DME) Compression Stockings See Rx Instructions .Route .MEDSUPPLY Qty: 1 0RF Rx Instructions: As directed (DME) [place] boot modification See Rx Instructions .Route .MEDSUPPLY Qty: 1 0RF Rx Instructions: Straps are failing (DME) diabetic shoes with 3 heat molded insoles See Rx Instructions .Route .MEDSUPPLY Qty: 1 0RF Rx Instructions: As directed to HOME (DME) Prevalon boot See Rx Instructions .Route .MEDSUPPLY Qty: 1 0RF Rx Instructions: As directed ropinirole 0.25 mg tablet 0.25 mg PO BEDTIME PRN (Reason: Restless Leg(S)) Lokelma 5 gram powder in packet See Rx Instructions .ROUTE .COMPLEX Rx Instructions: 1 packet po daily on , , Sun, Sun - mix with 45 mL of water, drink immediately give other medications 2 hrs before or after this medication oxycodone 5 mg Tablet 5 mg PO Q6H PRN (Reason: Pain) cilostazol 50 mg Tablet 50 mg PO BID trazodone 100 mg Tablet 100 mg PO BEDTIME PRN (Reason: Sleep) atorvastatin 80 mg tablet 80 mg PO QAM escitalopram oxalate 10 mg tablet 10 mg PO QAM RenaPlex-D 800 mcg-12.5 mg -2,000 unit tablet 1 tab PO QAM ondansetron HCl 4 mg tablet 4 mg PO Q4H PRN (Reason: Nausea) sevelamer carbonate 800 mg tablet See Rx Instructions .ROUTE .COMPLEX Rx Instructions: 5 tabs po tid with meals and 4 tabs po bid with snacks venlafaxine [Effexor XR] 75 mg Capsule,Extended Release 24hr 75 mg PO QAM bisacodyl [Dulcolax (bisacodyl)] 10 mg Suppository 10 mg [place] DAILY PRN (Reason: Constipation) hydroxyzine HCl 25 mg Tablet 25 mg PO Q6H PRN (Reason: Anxiety) polyethylene glycol 3350 [Miralax] 17 gram/dose Powder 17 g PO BID PRN (Reason: Constipation) albuterol sulfate 90 mcg/actuation Hfa Aerosol Inhaler 2 puff INHALATION Q6H PRN (Reason: Shortness Of Breath) Patient Comments: pt states he does not take this B-complex with vitamin C Capsule 1 cap PO QAM brexpiprazole 0.25 mg Tablet 0.25 mg PO QAM diphenhydramine HCl [Benadryl Allergy] 25 mg tablet 25 mg PO DAILY PRN (Reason: itching) gabapentin 300 mg capsule 300 mg PO TID PRN (Reason: NERVE PAIN) Discharge Orders: Transfer Out of Facility (Order); Ordered 05/15/23 Ordered By: Edil Bonner Referrals: [facility] [Outside] Sulma Wetzel MD [Primary Care Provider] - Discharge Diet: Cardiac and Diabetic Discharge Activity: Resume usual activity and Increase activity as tolerated Patient Instructions: Dialysis Diet (DC), Hemodialysis (DC), Opioid Safety Transfer Attestations Time Spent in Transfer Care: greater than 30 min Status at Transfer: Cognitive status at transfer: cognitively intact ; Behavioral status at transfer: cooperative ; Quality Metrics Clinical Quality Measures [ No reported AMI, CVA or VTE this stay] Coding Level of Care Code 22094 Total time (in minutes) for Discharge: 60 Diagnoses Shock R57.9 Chest pain R07.9 Left main coronary artery disease I25.10 End-stage renal disease on hemodialysis N18.6; Z99.2 Type 2 diabetes mellitus E11.9 Anasarca R60.1 CHF (congestive heart failure), NYHA class III I50.9 Abnormal TSH R79.89 Constipation K59.00
--- NOTE | 2023-05-16 17:11 | PC.NURSE ---
Report called to [facility] and given to Dana Guerra RN
--- NOTE | 2023-05-16 18:43 | PC.NURSE ---
Pt left with EMS going to [facility] in [place]
[2023-05-16 21:23] LABS: Glucose Point of Care 125 mg/dL (70-110)
== END 2023-05-16 18:25 | disposition short-term general hospital (02) | DRG 280 ==
LOC: ER 04:44 → CSU 05:52 → ICU 05-08 15:39 → CSU 05-15 09:16
PROVIDERS: Hospitalist; Internal Medicine; Admitting Provider Family Medicine; Emergency Provider Emergency Medicine; PCP Internal Medicine; Visit Provider Student in an Organized Health Care Education/Training Program
DX: I13.2 Hypertensive heart and chronic kidney disease with heart failure and with stage 5 chronic kidney disease, or end stage renal disease (principal); I21.4 Non-ST elevation (NSTEMI) myocardial infarction; I50.23 Acute on chronic systolic (congestive) heart failure; N18.6 End stage renal disease; J96.22 Acute and chronic respiratory failure with hypercapnia; J96.21 Acute and chronic respiratory failure with hypoxia; R18.8 Other ascites; L03.115 Cellulitis of right lower limb; E66.2 Morbid (severe) obesity with alveolar hypoventilation; E87.79 Other fluid overload; I25.110 Atherosclerotic heart disease of native coronary artery with unstable angina pectoris; E11.22 Type 2 diabetes mellitus with diabetic chronic kidney disease; Z99.2 Dependence on renal dialysis; Z91.158 Patient's noncompliance with renal dialysis for other reason; L89.512 Pressure ulcer of right ankle, stage 2; E11.42 Type 2 diabetes mellitus with diabetic polyneuropathy; E11.51 Type 2 diabetes mellitus with diabetic peripheral angiopathy without gangrene; Z89.512 Acquired absence of left leg below knee; E87.5 Hyperkalemia; K74.60 Unspecified cirrhosis of liver; N49.2 Inflammatory disorders of scrotum; I95.9 Hypotension, unspecified; Z85.528 Personal history of other malignant neoplasm of kidney; K59.00 Constipation, unspecified; Z88.1 Allergy status to other antibiotic agents; Z86.74 Personal history of sudden cardiac arrest; Z86.16 Personal history of COVID-19; R79.89 Other specified abnormal findings of blood chemistry; Z90.5 Acquired absence of kidney; Z91.199 Patient's noncompliance with other medical treatment and regimen due to unspecified reason; Z68.39 Body mass index [BMI] 39.0-39.9, adult; J44.9 Chronic obstructive pulmonary disease, unspecified; D63.1 Anemia in chronic kidney disease; Z79.891 Long term (current) use of opiate analgesic
CPT/HCPCS: 36415; 36416; 36430; 49083; 71045; 74177; 78452; 80048; 80053; 80061; 80069; 80503; 82042; 82150; 82465; 82533; 82945; 82962; 83036; 83605; 83615; 83735; 83880; 83986; 84075; 84100; 84145; 84157; 84315; 84443; 84478; 84484; 84560; 85025; 85730; 86140; 86705; 86706; 86850; 86900; 86920; 87015; 87040; 87070; 87075; 87116; 87205; 87206; 87340; 87801; 88112; 88305; 89050; 90935; 93005; 93308; 93458; 94640; 94660; 94664; 96372; 96374; 96375; 96376; 97110; 97161; 97530; 99152; 99153; 99285; A9500; C1760; C1769; C1887; C1894; J0461; J0885; J1250; J1644; J1940; J2250; J2270; J2405; J2543; J3010; J3490; J7030; J7050; J7060; J7613; P9016; P9047; Q0163; Q3014; Q4081; Q9967

== ENCOUNTER → 2023-06-08 10:34 | Day surgery (SDC) | payer MEDICARE, MEDICAID, SELFPAY ==
--- NOTE | 2023-06-08 10:53 | US_ITS ---
WS: [email or web address] ULTRASOUND-GUIDED PARACENTESIS CLINICAL INFORMATION: ascites COMPARISON: None. Procedure Informed consent: The risks, benefits, and alternatives of the procedure were discussed with the riya ent. Verbal and written consent was obtained. Timeout: A timeout was performed to confirm the correct patient, procedure, and site. Preparation: A suitable skin site was identified. The patient was prepped and draped in usual sterile fashion. Lidocaine 1% was used for local anesthesia. Catheter: 4 Nepali One-step Yueh catheter. Side: RIGHT lower quadrant. Fluid Volume: 9750 ml Color: Clear yellow DISPOSITION: Discarded safely. Complications: None. Patient disposition: Discharged from the department in stable condition. IMPRESSION: Uncomplicated ultrasound-guided paracentesis. Removal of 9750 cc
[2023-06-08 11:15] VITALS: BP 113/73; PULSE 80; RESP 18; TEMP 36.3; O2SAT 91; BMI 39.5
[2023-06-08 11:20] VITALS: O2SAT 97
[2023-06-08] MEDS: albumin 75 G/300 ML BAG 60 G IV (11:43)
== END ==
PROVIDERS: PCP Internal Medicine; Visit Provider Internal Medicine Nephrology
PROC: (CPT 49082; principal; 2023-06-08 11:30)
DX: R18.8 Other ascites (principal)
CPT/HCPCS: 49083; 96365; P9046

== ENCOUNTER 2023-06-18 12:00 | Day surgery (SDC) | payer MEDICARE, MEDICAID, SELFPAY ==
--- NOTE | 2023-06-18 12:07 | US_ITS ---
WS: [email or web address] ULTRASOUND-GUIDED PARACENTESIS CLINICAL INFORMATION: ascites COMPARISON: None. Procedure Informed consent: The risks, benefits, and alternatives of the procedure were discussed with the riya ent. Verbal and written consent was obtained. Timeout: A timeout was performed to confirm the correct patient, procedure, and site. Preparation: A suitable skin site was identified. The patient was prepped and draped in usual sterile fashion. Lidocaine 1% was used for local anesthesia. Catheter: 4 Chinese One-step Yueh catheter. Side: LEFT lower quadrant. Fluid Volume: 14,000 ml Color: Clear yellow DISPOSITION: Discarded safely. Complications: None. Patient disposition: Discharged from the department in stable condition. IMPRESSION: Uncomplicated ultrasound-guided paracentesis. Removal of 14,000 cc
[2023-06-18 12:09] VITALS: BP 88/56; PULSE 93; RESP 16; TEMP 36.5; O2SAT 97
[2023-06-18 12:10] VITALS: BMI 36.9
[2023-06-18 12:14] VITALS: O2SAT 82; O2SAT 90
[2023-06-18] MEDS: albumin 75 G/300 ML BAG 350 G IV (12:59)
[2023-06-18 13:41] VITALS: BP 110/67; PULSE 91; RESP 16; O2SAT 97
[2023-06-18 14:28] VITALS: BP 103/63; PULSE 92; RESP 16; O2SAT 94
== END 2023-06-18 14:34 | disposition home or self-care (01) ==
LOC: GILAB 12:01
PROVIDERS: Radiology Neuroradiology; PCP Internal Medicine; Visit Provider Internal Medicine Nephrology
PROC: (CPT 49082; principal; 2023-06-18 12:00)
DX: R18.8 Other ascites (principal)
CPT/HCPCS: 49083; P9046

== ENCOUNTER 2023-07-02 10:55 | Day surgery (SDC) | payer MEDICARE, MEDICAID, SELFPAY ==
[2023-07-02 11:03] VITALS: BP 106/74; PULSE 88; RESP 16; TEMP 36.1; O2SAT 91
--- NOTE | 2023-07-02 11:07 | US_ITS ---
WS: [email or web address] ULTRASOUND-GUIDED PARACENTESIS CLINICAL INFORMATION: Ascites COMPARISON: None. Procedure Informed consent: The risks, benefits, and alternatives of the procedure were discussed with the riya ent. Verbal and written consent was obtained. Timeout: A timeout was performed to confirm the correct patient, procedure, and site. Preparation: A suitable skin site was identified. The patient was prepped and draped in usual sterile fashion. Lidocaine 1% was used for local anesthesia. Catheter: 4 Irish One-step Yueh catheter. Side: LEFT lower quadrant. Fluid Volume: 12,500 ml Color: Clear yellow DISPOSITION: Discarded safely. Complications: None. Patient disposition: Discharged from the department in stable condition. IMPRESSION: Uncomplicated ultrasound-guided paracentesis. Removal of 12,500cc
[2023-07-02 11:47] VITALS: BMI 38.2
[2023-07-02 13:50] VITALS: O2SAT 100
== END 2023-07-02 13:54 | disposition home or self-care (01) ==
LOC: GILAB 10:55
PROVIDERS: Radiology Neuroradiology; PCP Internal Medicine; Visit Provider Internal Medicine Nephrology
PROC: (CPT 49082; principal; 2023-07-02 12:00)
DX: R18.8 Other ascites (principal)
CPT/HCPCS: 49083; 96365; P9047

== ENCOUNTER 2023-07-16 11:11 | Day surgery (SDC) | payer MEDICARE, MEDICAID, SELFPAY ==
--- NOTE | 2023-07-16 11:14 | US_ITS ---
WS: [email or web address] ULTRASOUND-GUIDED THERAPEUTIC PARACENTESIS Procedure, risks, and complications have been explained to the patient. Consent is obtained. Utilizing aseptic technique and 1% buffered lidocaine, a small dermatome was made through which a 5 F rench Yueh catheter was inserted. Approximately 11,000 ml of clear peritoneal fluid was obtained wit hout difficulty. No complications encountered. IMPRESSION: Uncomplicated paracentesis yielding 11,000 ml of peritoneal fluid.
[2023-07-16 11:22] VITALS: BP 107/67; PULSE 95; RESP 18; TEMP 36.1; O2SAT 95; BMI 36.9
[2023-07-16] MEDS: albumin 75 G/300 ML BAG 60 G IV (12:27)
== END 2023-07-16 13:34 | disposition home or self-care (01) ==
LOC: GILAB 11:12
PROVIDERS: Radiology Diagnostic Radiology; PCP Internal Medicine; Visit Provider Internal Medicine Nephrology
PROC: (CPT 49082; principal; 2023-07-16 12:00)
DX: R18.8 Other ascites (principal)
CPT/HCPCS: 49083; 76937; 96365; P9046

== ENCOUNTER 2023-07-27 11:55 | Day surgery (SDC) | payer MEDICARE, MEDICAID, SELFPAY ==
--- NOTE | 2023-07-27 12:07 | US_ITS ---
WS: [email or web address] ULTRASOUND-GUIDED PARACENTESIS CLINICAL INFORMATION: ascites COMPARISON: None. Procedure Informed consent: The risks, benefits, and alternatives of the procedure were discussed with the riya ent. Verbal and written consent was obtained. Timeout: A timeout was performed to confirm the correct patient, procedure, and site. Preparation: A suitable skin site was identified. The patient was prepped and draped in usual sterile fashion. Lidocaine 1% was used for local anesthesia. Catheter: 4 Tamazight One-step Yueh catheter. Side: LEFT lower quadrant. Fluid Volume: 13,250 ml Color: Clear yellow DISPOSITION: Discarded safely. Complications: None. Patient disposition: Discharged from the department in stable condition. IMPRESSION: Uncomplicated ultrasound-guided paracentesis. Removal of 13,250 cc
[2023-07-27 12:09] VITALS: BP 125/87; PULSE 93; RESP 18; TEMP 36.1; O2SAT 95; BMI 36.9
[2023-07-27] MEDS: albumin 75 G/300 ML BAG 300 G IV (12:42)
[2023-07-27] MEDS: lidocaine 1% INJ 10 mL (per mL) INJECTION (13:29)
== END 2023-07-27 15:03 | disposition home or self-care (01) ==
LOC: GILAB 11:56
PROVIDERS: Radiology Neuroradiology; PCP Internal Medicine; Visit Provider Internal Medicine Nephrology
PROC: (CPT 49082; principal; 2023-07-27 13:00)
DX: R18.8 Other ascites (principal)
CPT/HCPCS: 49083; 96365; P9046

== ENCOUNTER → 2023-07-31 13:54 | Outpatient (BNVA) | payer MEDICARE, MEDICAID, SELFPAY | PROVIDERS: PCP Internal Medicine; Visit Provider Podiatrist Foot & Ankle Surgery | DX: E11.8 Type 2 diabetes mellitus with unspecified complications (principal); Z89.512 Acquired absence of left leg below knee; M86.60 Other chronic osteomyelitis, unspecified site | CPT/HCPCS: 11721; 99212 ==

== ENCOUNTER 2023-08-06 11:11 | Day surgery (SDC) | payer MEDICARE, MEDICAID, SELFPAY ==
[2023-08-06 11:20] VITALS: BP 100/70; PULSE 88; RESP 16; TEMP 36.2; O2SAT 89
[2023-08-06 11:21] VITALS: O2SAT 92
--- NOTE | 2023-08-06 11:26 | US_ITS ---
WS: [email or web address] ULTRASOUND-GUIDED PARACENTESIS CLINICAL INFORMATION: ascites COMPARISON: None. Procedure Informed consent: The risks, benefits, and alternatives of the procedure were discussed with the riya ent. Verbal and written consent was obtained. Timeout: A timeout was performed to confirm the correct patient, procedure, and site. Preparation: A suitable skin site was identified. The patient was prepped and draped in usual sterile fashion. Lidocaine 1% was used for local anesthesia. Catheter: 4 Nepali One-step Yueh catheter. Side: RIGHT lower quadrant. Fluid Volume: 10,300 ml Color: Clear yellow DISPOSITION: Discarded safely. Complications: None. Patient disposition: Discharged from the department in stable condition. IMPRESSION: Uncomplicated ultrasound-guided paracentesis. Removal of 10,300 cc
[2023-08-06 11:41] VITALS: BMI 35.6
[2023-08-06] MEDS: albumin 75 G/300 ML BAG 200 G IV (12:58)
== END 2023-08-06 14:09 | disposition home or self-care (01) ==
LOC: GILAB 11:13
PROVIDERS: Radiology Neuroradiology; PCP Internal Medicine; Visit Provider Internal Medicine Nephrology
PROC: (CPT 49082; principal; 2023-08-06 12:00)
DX: R18.8 Other ascites (principal)
CPT/HCPCS: 49083; 76937; 96365; P9046

== ENCOUNTER → 2023-08-08 07:53 | Outpatient (BNVA) | payer MEDICARE, MEDICAID, SELFPAY | PROVIDERS: PCP Internal Medicine; Visit Provider Thoracic Surgery (Cardiothoracic Vascular Surgery) | DX: L98.491 Non-pressure chronic ulcer of skin of other sites limited to breakdown of skin (principal); Z09 Encounter for follow-up examination after completed treatment for conditions other than malignant neoplasm | CPT/HCPCS: 97597; 99213 ==

== ENCOUNTER 2023-08-17 11:01 | Day surgery (SDC) | payer MEDICARE, MEDICAID, SELFPAY ==
[2023-08-17 11:10] VITALS: BP 116/73; PULSE 88; RESP 18; TEMP 36.4; O2SAT 93
--- NOTE | 2023-08-17 11:10 | US_ITS ---
WS: [email or web address] ULTRASOUND-GUIDED PARACENTESIS CLINICAL INFORMATION: Ascites COMPARISON: None. Procedure Informed consent: The risks, benefits, and alternatives of the procedure were discussed with the riya ent. Verbal and written consent was obtained. Timeout: A timeout was performed to confirm the correct patient, procedure, and site. Preparation: A suitable skin site was identified. The patient was prepped and draped in usual sterile fashion. Lidocaine 1% was used for local anesthesia. Catheter: 4 Khmer One-step Yueh catheter. Side: LEFT lower quadrant. Fluid Volume: 9000 ml Color: Clear yellow DISPOSITION: Discarded safely. Complications: None. Patient disposition: Discharged from the department in stable condition. IMPRESSION: Uncomplicated ultrasound-guided paracentesis. Removal of 9000 cc
[2023-08-17] MEDS: albumin 75 G/300 ML BAG 300 G IV (11:52)
== END 2023-08-17 12:55 | disposition home or self-care (01) ==
LOC: GILAB 11:01
PROVIDERS: Radiology Neuroradiology; PCP Internal Medicine; Visit Provider Internal Medicine Nephrology
PROC: (CPT 49082; principal; 2023-08-17 12:00)
DX: R18.8 Other ascites (principal)
CPT/HCPCS: 49083; 96365; P9046

== ENCOUNTER → 2023-08-27 10:47 | Day surgery (SDC) | payer MEDICARE, MEDICAID, SELFPAY ==
--- NOTE | 2023-08-27 10:55 | US_ITS ---
WS: [email or web address] ULTRASOUND-GUIDED PARACENTESIS CLINICAL INFORMATION: ascites COMPARISON: None. Procedure Informed consent: The risks, benefits, and alternatives of the procedure were discussed with the riya ent. Verbal and written consent was obtained. Timeout: A timeout was performed to confirm the correct patient, procedure, and site. Preparation: A suitable skin site was identified. The patient was prepped and draped in usual sterile fashion. Lidocaine 1% was used for local anesthesia. Catheter: 4 Faroese One-step Yueh catheter. Side: LEFT lower quadrant. Fluid Volume: 12,800 ml Color: Clear yellow DISPOSITION: Discarded safely. Complications: None. Patient disposition: Discharged from the department in stable condition. IMPRESSION: Uncomplicated ultrasound-guided paracentesis. Removal of 12,800 cc
[2023-08-27 11:10] VITALS: BP 137/90; PULSE 92; RESP 18; TEMP 36.3; O2SAT 92
[2023-08-27 11:17] VITALS: BMI 36.9
[2023-08-27] MEDS: albumin 75 G/300 ML BAG 60 G IV (12:55)
== END ==
LOC: GILAB 10:50
PROVIDERS: Radiology Neuroradiology; PCP Internal Medicine; Visit Provider Internal Medicine Nephrology
PROC: (CPT 49082; principal; 2023-08-27 12:00)
DX: R18.8 Other ascites (principal); E11.622 Type 2 diabetes mellitus with other skin ulcer; L97.811 Non-pressure chronic ulcer of other part of right lower leg limited to breakdown of skin
CPT/HCPCS: 49083; 96365; 97597; 97598; A6210; A6248; P9046

== ENCOUNTER 2023-09-03 10:13 | Day surgery (SDC) | payer MEDICARE, MEDICAID, SELFPAY ==
[2023-09-03 10:35] VITALS: BP 85/59; PULSE 86; RESP 18; TEMP 36.4; O2SAT 76
[2023-09-03 10:40] VITALS: O2SAT 91
[2023-09-03 10:44] VITALS: BMI 36.9
--- NOTE | 2023-09-03 10:44 | US_ITS ---
WS: [email or web address] ULTRASOUND-GUIDED THERAPEUTIC PARACENTESIS Procedure, risks, and complications have been explained to the patient. Consent is obtained. Utilizing aseptic technique and 1% buffered lidocaine, a small dermatome was made through which a 5 F rench Yueh catheter was inserted. Approximately 11,500 ml of clear peritoneal fluid was obtained wit hout difficulty. No complications encountered. IMPRESSION: Uncomplicated paracentesis yielding 11,500 ml of peritoneal fluid.
[2023-09-03] MEDS: albumin 75 G/300 ML BAG 30 G IV (11:20)
[2023-09-03 13:00] VITALS: BP 97/60; PULSE 85
--- NOTE | 2023-09-03 13:39 | PC.NURSE ---
Pt returned to department with c/o nausea. Contacted Dr. Holt who gave an order for zofran but pt declined zofran, saying he was feeling better and was ready to go. Discussed with pt he might want to bring his zofran RX from home if nausea after the paracentesis is common, or even take it before he comes for his para. Pt voiced understanding and appreciation.
== END 2023-09-03 13:40 | disposition home or self-care (01) ==
LOC: GILAB 10:14
PROVIDERS: Radiology Diagnostic Radiology; PCP Internal Medicine; Visit Provider Internal Medicine Nephrology
PROC: (CPT 49082; principal; 2023-09-03 12:00)
DX: R18.8 Other ascites (principal)
CPT/HCPCS: 49083; 96365; 99213; A6248; P9046

== ENCOUNTER → 2023-09-10 13:51 | Outpatient (BNVA) | payer MEDICARE, MEDICAID, SELFPAY | PROVIDERS: PCP Internal Medicine; Visit Provider Nurse Practitioner Family | DX: L89.892 Pressure ulcer of other site, stage 2 (principal); E11.52 Type 2 diabetes mellitus with diabetic peripheral angiopathy with gangrene; E11.622 Type 2 diabetes mellitus with other skin ulcer; L97.811 Non-pressure chronic ulcer of other part of right lower leg limited to breakdown of skin | CPT/HCPCS: 99212; A6220 ==

== ENCOUNTER 2023-09-17 11:08 | Day surgery (SDC) | payer MEDICARE, MEDICAID, SELFPAY ==
--- NOTE | 2023-09-17 11:25 | US_ITS ---
WS: [email or web address] ULTRASOUND-GUIDED THERAPEUTIC PARACENTESIS Procedure, risks, and complications have been explained to the patient. Consent is obtained. Utilizing aseptic technique and 1% buffered lidocaine, a small dermatome was made through which a 5 F rench Yueh catheter was inserted. Approximately 12,500 ml of clear peritoneal fluid was obtained wit hout difficulty. No complications encountered. IMPRESSION: Uncomplicated paracentesis yielding 12,500 ml of peritoneal fluid.
[2023-09-17 11:26] VITALS: BP 107/60; PULSE 118; RESP 18; TEMP 36.7; O2SAT 75
[2023-09-17 11:29] VITALS: O2SAT 90
[2023-09-17 11:35] VITALS: BMI 36.9
[2023-09-17] MEDS: albumin 75 G/300 ML BAG 200 G IV (12:38)
[2023-09-17 13:32] VITALS: O2SAT 90
== END 2023-09-17 13:49 | disposition home or self-care (01) ==
LOC: GILAB 11:09
PROVIDERS: Radiology Diagnostic Radiology; PCP Internal Medicine; Visit Provider Internal Medicine Nephrology
PROC: (CPT 49082; principal; 2023-09-17 12:00)
DX: R18.8 Other ascites (principal)
CPT/HCPCS: 49083; 96365; P9046

== ENCOUNTER 2023-09-25 13:59 | Day surgery (SDC) | payer MEDICARE, MEDICAID, SELFPAY ==
[2023-09-25 14:05] VITALS: BP 80/47; PULSE 89; RESP 20; TEMP 36.9; O2SAT 60
--- NOTE | 2023-09-25 14:09 | US_ITS ---
WS: [email or web address] ULTRASOUND-GUIDED PARACENTESIS CLINICAL INFORMATION: ascites COMPARISON: None. Procedure Informed consent: The risks, benefits, and alternatives of the procedure were discussed with the riya ent. Verbal and written consent was obtained. Timeout: A timeout was performed to confirm the correct patient, procedure, and site. Preparation: A suitable skin site was identified. The patient was prepped and draped in usual sterile fashion. Lidocaine 1% was used for local anesthesia. Catheter: 4 Yakut One-step Yueh catheter. Side: RIGHT lower quadrant. Fluid Volume: 10,800 ml Color: Clear yellow DISPOSITION: Discarded safely. Complications: None. Patient disposition: Discharged from the department in stable condition. IMPRESSION: Uncomplicated ultrasound-guided paracentesis. Removal of 10,800 cc
[2023-09-25 14:10] VITALS: BP 90/53; PULSE 90; RESP 18; O2SAT 93
[2023-09-25 14:19] VITALS: BMI 36.9
[2023-09-25] MEDS: albumin 75 G/300 ML BAG 60 G IV (15:45)
== END 2023-09-25 16:30 | disposition home or self-care (01) ==
LOC: GILAB 14:00
PROVIDERS: Radiology Neuroradiology; PCP Internal Medicine; Visit Provider Internal Medicine Nephrology
PROC: (CPT 49082; principal; 2023-09-25 14:00)
DX: R18.8 Other ascites (principal)
CPT/HCPCS: 49083; 96365; P9046

== ENCOUNTER 2023-10-01 10:31 | Day surgery (SDC) | payer MEDICARE, MEDICAID, SELFPAY ==
--- NOTE | 2023-10-01 11:02 | US_ITS ---
WS: [email or web address] ULTRASOUND-GUIDED THERAPEUTIC PARACENTESIS Procedure, risks, and complications have been explained to the patient. Consent is obtained. Utilizing aseptic technique and 1% buffered lidocaine, a small dermatome was made through which a 5 F rench Yueh catheter was inserted. Approximately 9000 ml of clear peritoneal fluid was obtained witho ut difficulty. No complications encountered. IMPRESSION: Uncomplicated paracentesis yielding 9000 ml of peritoneal fluid.
[2023-10-01 11:13] VITALS: BP 104/60; PULSE 81; RESP 20; TEMP 36.2; O2SAT 92; BMI 35.6
[2023-10-01] MEDS: albumin 75 G/300 ML BAG 300 G IV (11:55)
== END 2023-10-01 13:05 | disposition home or self-care (01) ==
PROVIDERS: PCP Internal Medicine; Visit Provider Internal Medicine Nephrology
PROC: (CPT 49082; principal; 2023-10-01 12:00)
DX: R18.8 Other ascites (principal)
CPT/HCPCS: 49083; 96365; P9046

== ENCOUNTER 2023-10-08 11:25 | Day surgery (SDC) | payer MEDICARE, MEDICAID, SELFPAY ==
[2023-10-08 11:55] VITALS: BP 86/62; PULSE 88; RESP 20; TEMP 36.1; O2SAT 77; BMI 35.6
[2023-10-08 11:58] VITALS: BP 91/57; PULSE 85; RESP 20; O2SAT 94
--- NOTE | 2023-10-08 12:09 | US_ITS ---
WS: [email or web address] ULTRASOUND-GUIDED PARACENTESIS CLINICAL INFORMATION: ascites COMPARISON: None. Procedure Informed consent: The risks, benefits, and alternatives of the procedure were discussed with the riya ent. Verbal and written consent was obtained. Timeout: A timeout was performed to confirm the correct patient, procedure, and site. Preparation: A suitable skin site was identified. The patient was prepped and draped in usual sterile fashion. Lidocaine 1% was used for local anesthesia. Catheter: 4 Estonian One-step Yueh catheter. Side: RIGHT lower quadrant. Fluid Volume: 4250 ml Color: Clear yellow DISPOSITION: Discarded safely. Complications: None. Patient disposition: Discharged from the department in stable condition. IMPRESSION: Uncomplicated ultrasound-guided paracentesis. Removal of 4250cc
[2023-10-08] MEDS: albumin 75 G/300 ML BAG 999 G IV (12:42)
[2023-10-08 13:23] VITALS: BP 95/66; PULSE 79; RESP 16; O2SAT 96
== END 2023-10-08 13:34 | disposition home or self-care (01) ==
PROVIDERS: Radiology Neuroradiology; PCP Internal Medicine; Visit Provider Internal Medicine Nephrology
PROC: (CPT 49082; principal; 2023-10-08 11:30)
DX: R18.8 Other ascites (principal); E11.622 Type 2 diabetes mellitus with other skin ulcer; L97.812 Non-pressure chronic ulcer of other part of right lower leg with fat layer exposed; L98.492 Non-pressure chronic ulcer of skin of other sites with fat layer exposed
CPT/HCPCS: 11042; 11045; 49083; 96365; A6197; A6220; P9046

== ENCOUNTER 2023-10-11 14:57 | Outpatient (CLI) | payer MEDICARE, MEDICAID, SELFPAY ==
--- NOTE | 2023-10-11 15:01 | CTR_ITS ---
PROCEDURE INFORMATION: Exam: CTA Abdominal Aorta and Bilateral Lower Extremities (Run-off) With Contrast Exam date and time: 10/11/2023 4:00 PM Age: 53 years old Clinical indication: Condition or disease; Peripheral vascular disease and other: Non healing ulcerations, groin lymph node; Patient HX: Non healing ulcerations, pad, dialysis patient, left leg amputee below knee, HX of renal cancer. TECHNIQUE: Imaging protocol: Computed tomographic angiography of the of the abdominal aorta, pelvis and bilateral lower extremities with contrast. 3D rendering (Not supervised by radiologist): MIP and/or 3D reconstructed images were created by the technologist. Radiation optimization: All CT scans at this facility use at least one of these dose optimization techniques: automated exposure control; mA and/or kV adjustment per patient size (includes targeted exams where dose is matched to clinical indication); or iterative reconstruction. Contrast material: OMNI 350; Contrast volume: 125 ml; Contrast route: INTRAVENOUS (IV); COMPARISON: [place] [id number] 11/04/2021 8:50 AM RADIATION DOSE METRICS: Total DLP (mGy-cm): 2316.29 FINDINGS: Aorta: Normal caliber of the abdominal aorta and descending thoracic aorta . No aneurysm. Moderate calcification of the distal abdominal aorta. Celiac trunk and mesenteric arteries: Moderate calcification of the proximal common hepatic artery with mild stenosis. Celiac trunk is patent. The SMA is patent although moderate calcification of its branches including the replaced right hepatic artery. Moderate calcification of the HEATHER with [id number] distal lumen attenuation. 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 Diffuse calcification of the deep inferior epigastric artery. Moderate calcification and stenosis of the proximal right profundus . Extensive circumferential patchy calcification of the superficial femoral artery with moderate luminal stenosis throughout. Diffuse moderate calcification and [id number] diffuse stenosis of the right popliteal artery. Right infrapopliteal arteries: Severe circumferential calcification of the tibioperoneal trunk, anterior tibial, posterior tibial and peroneal arteries limited visualization of luminal contrast-enhancing due to severe calcification with presumed severe diffuse stenosis. Left iliac arteries: Mild stenosis of the common iliac. No significant stenosis of the external iliac. Moderate calcification stenosis of the internal iliac. 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 Severe calcification and narrowing of the deep inferior epigastric. Diffuse circumferential calcification and moderate stenosis of the superficial femoral artery throughout. Moderate calcification and stenosis of the popliteal artery. Left infrapopliteal arteries: Extensive calcification of the tibioperoneal trunk, anterior and posterior tibial and peroneal arteries to the level of the stump with presumed severe luminal attenuation. Veins: Distended IVC. Pleural spaces: Trace bilateral pleural effusions. Mild linear atelectasis in the right lower lobe. Heart: Mild cardiomegaly. Extensive coronary calcification/stent Liver: Advanced cirrhotic liver morphology without clear-cut arterially enhancing lesion. Gallbladder and bile ducts: Unremarkable. No calcified stones. No ductal dilation. Pancreas: Unremarkable. No mass. No ductal dilation. Spleen: Mild splenomegaly. Adrenal glands: Normal. No mass. Kidneys and ureters: Severely atrophic appearance of the kidneys without hydronephrosis. No measurable mass. Reported prior partial nephrectomy with presumed corresponding changes in the lower pole of the right kidney. Stomach and bowel: Moderate gastric distension containing debris, with moderate diffuse wall thickening and enhancement. Moderate amount retained colonic stool. Scattered sigmoid diverticuli. Mild fluid-filled small bowel with diffuse moderate wall enhancement. Appendix: No evidence of appendicitis, limited assessment. Urinary bladder: Thickened empty urinary bladder. Reproductive: Prostate is nonenlarged. Intraperitoneal space: Large volume ascites. Lymph nodes: Multiple moderately enlarged para-aortic and aortocaval nodes up to 1.8 cm. Bulky bilateral pelvic sidewall and external iliac adenopathy up to 3.9 cm . Multiple bilateral moderately enlarged inguinal nodes up to 2.4 cm. Bones/joints: Chronic fracture-dislocation of the right 2nd proximal phalanx mild overriding of the PIP joint. Chronic fracture of the base of the 5th metatarsal. Stable moderate chronic compression of L1. Soft tissues: Left below-knee amputation. Overlying wound at the tip of the anterior stump with diffuse soft tissue swelling .Moderate diffuse soft tissue thickening throughout the remaining bilateral lower extremities and body wall. Multiple small foci nodular enhancement in the lower pelvic wall and flanks without definitive additional fluid collection or abscess formation . CT/CT angio abd aorta runof [id number] IMPRESSION: 1. Severe diffuse vascular calcification of the bilateral lower extremities from the superficial femoral artery to the left amputation stump and right foot level. severe diffuse luminal narrowing bilaterally below the popliteal level. Moderate diffuse stenosis of the bilateral superficial and profundus femoris arteries. 2. Apparent wound at the tip of the left below-knee amputation stump with presumed cellulitis but abscess formation. 3. Diffuse body wall edema consistent with volume overload. Large volume ascites likely contributed to by hepatic cirrhosis and cardiac dysfunction. Mild cardiomegaly. 4. Multiple small no enhancing nodular subcutaneous foci throughout the flanks and pelvic wall due to panniculitis or fat necrosis. No clear-cut abscess formation at this time. 5. Diffuse gastric and small bowel wall thickening consistent with gastropathy and enteropathy. 6. Bulky pelvic inguinal and retroperitoneal adenopathy due to inflammatory or neoplastic etiology, unchanged from 05/07/2023. 7. Atrophic kidneys, severe bladder wall thickening, large volume colonic stool and other chronic findings above.
[2023-10-11] MEDS: iohexol 350 mg/mL 500 mL Btl (per mL) IV (16:20)
== END 2023-10-11 14:58 | disposition home or self-care (01) ==
LOC: RAD 14:58
PROVIDERS: PCP Internal Medicine; Visit Provider Thoracic Surgery (Cardiothoracic Vascular Surgery)
DX: I70.203 Unspecified atherosclerosis of native arteries of extremities, bilateral legs (principal); Z89.512 Acquired absence of left leg below knee
CPT/HCPCS: 75635; Q9967

== ENCOUNTER 2023-10-15 09:40 | Day surgery (SDC) | payer MEDICARE, MEDICAID, SELFPAY ==
[2023-10-15 10:09] VITALS: BP 127/83; PULSE 92; RESP 20; TEMP 36.3; O2SAT 95
--- NOTE | 2023-10-15 10:12 | US_ITS ---
WS: [id number] ULTRASOUND-GUIDED THERAPEUTIC PARACENTESIS Procedure, risks, and complications have been explained to the patient. Consent is obtained. Utilizing aseptic technique and 1% buffered lidocaine, a small dermatome was made through which a 5 F rench Yueh catheter was inserted. Approximately 10,000 ml of clear peritoneal fluid was obtained wit hout difficulty. No complications encountered. Initial dermatome is made along the LEFT lower abdomen which cause significant bleeding. Pressure was held until bleeding stopped and the gel adhesive was placed. Dermatome and access into the peritonea l cavity was then performed on the RIGHT. IMPRESSION: Uncomplicated paracentesis yielding 10,000 ml of peritoneal fluid.
[2023-10-15] MEDS: lidocaine 1% INJ 10 mL (per mL) INJECTION (10:55)
[2023-10-15] MEDS: albumin 75 G/300 ML BAG 60 G IV (11:15)
[2023-10-15 12:25] VITALS: BMI 35.6
[2023-10-15] MEDS: ondansetron 2 mg/ML SDV 2 mL 4 MG IVP (12:27)
== END 2023-10-15 12:33 | disposition home or self-care (01) ==
LOC: GILAB 09:40
PROVIDERS: Radiology Diagnostic Radiology; PCP Internal Medicine; Visit Provider Internal Medicine Nephrology
PROC: (CPT 49082; principal; 2023-10-15 12:00)
DX: R18.8 Other ascites (principal)
CPT/HCPCS: 49083; 96365; 97597; 97598; 99212; A6197; A6251; J2405; P9046

== ENCOUNTER 2023-10-16 04:00 | Inpatient (IN) | payer MEDICARE, MEDICAID, SELFPAY ==
[2023-10-16] VITALS (11 sets, daily range): BP systolic 83–122; BP diastolic 48–105; PULSE 9–95; RESP 14–20; TEMP 36.3–36.4; O2SAT 90–100; BMI 33.0; BMI 36.0
--- NOTE | 2023-10-16 04:01 | XRR_ITS ---
PROCEDURE INFORMATION: Exam: XR Chest Exam date and time: 10/16/2023 4:12 AM Age: 53 years old Clinical indication: Chest wall pain; Additional info: Cxp TECHNIQUE: Imaging protocol: Radiologic exam of the chest. Views: 1 view. COMPARISON: CR XR chest 1V portable [id number] 05/07/2023 2:30 AM FINDINGS: Lungs: Low lung volumes. There is increased interstitial markings and haziness of the lungs, which in the setting of cardiomegaly is suggestive of pulmonary congestion. Pneumonia should be excluded clinically. Pleural spaces: Unremarkable. No pleural effusion. No pneumothorax. Heart/Mediastinum: Stable cardiomediastinal silhouette. Bones/joints: Unremarkable. XR/XR chest 1V portable [id number] IMPRESSION: Imaging findings suggestive of pulmonary congestion. Pneumonia should be excluded clinically.
--- NOTE | 2023-10-16 04:05 | ECG_ITS ---
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 Measurements Intervals [place] Rate: 93 P: 38 NH: 211 QRS: 142 QRSD: 91 T: 13 QT: 370 QTc: 462 Interpretive Statements SINUS RHYTHM WITH FIRST DEGREE AV BLOCK PATTERN CONSISTENT WITH PULMONARY DISEASE INCOMPLETE RIGHT BUNDLE BRANCH BLOCK [90+ ms QRS DURATION, TERMINAL R IN V1/V2, 40+ ms S IN I/aVL/V4/V5/V6] POSSIBLE RIGHT VENTRICULAR HYPERTROPHY [SOME/ALL OF: PROMINENT R IN V1, LATE TRANSITION, RAD, JEROME, SSS] SEPTAL MYOCARDIAL INFARCTION , OF INDETERMINATE AGE [40+ ms Q WAVE IN V1/V2] Compared to ECG 05/08/2023 18:35:40 First degree AV block now present Myocardial infarct finding now present Short NH interval no longer present Electronically Signed On 10-16-2023 21:35:11 CDT by Erik Arguelles M.D. [id number]
[2023-10-16 04:16] LABS: Basophils % 0.5 %; Eosinophils # 0.3 10^3/uL (0.0-0.8); Eosinophils % 6.2 %; Hematocrit 32.9 % (37-53); Lymphocytes # 0.5 10^3/uL (0.8-4.8); Lymphocytes % 11.8 %; Mean Corpuscular HGB Conc 29.5 g/dL (30-55); Mean Corpuscular Hemoglobin 27.2 pg (27-33); Mean Corpuscular Volume 92.4 fl (82-101); Mean Platelet Volume 10.6 fL (7.4-10.4); Monocytes # 0.6 10^3/uL (0.2-0.9); Monocytes % 13.7 %; Neutrophils # 2.86 10^3/uL (1.8-7.7); Neutrophils % 67.8 %; Nucleated Red Blood Cells % 0 %; Platelet Count 121 10^3/cmm (157-399); Red Blood Count 3.56 10^6/uL (3.85-5.65); Red Cell Distribution Width 17.6 % (12.1-15.1); White Blood Count 4.22 10^3/uL (3.29-11.43)
--- NOTE | 2023-10-16 04:27 | ED_ITS ---
Documented by User: Sunday Bullard MD 10/16/23 22:00 HPI - Chest Pain 2 General: Chief Complaint: Chest Pain Stated Complaint: CP Time Seen by Provider: 10/16/23 04:01 History of Present Illness: 53-year-old male presents emergency depa rtment via EMS personnel secondary to complaints of severe substernal left-sided chest pain. He states that May [address] [facility] and had 2 cardiac stents placed. He states this morning he woke up with 10 out of 10 chest pain. He does receive dialysis on Sunday and Sunday and states he has also had liver failure and states that he has seen the liver specialist at [place] and was told there is nothing they could do about his liver. He does have chronic abdominal ascites and has had a left lower leg amputation secondary to his peripheral vascular disease. He states he does see wound care and is currently being treated for right lower leg ulcerations. He states he is currently chest pain-free upon arriving to the emergency department after receiving sublingual nitroglycerin and Nitropaste and cardiac dose aspirin from EMS personnel. He denies nausea, vomiting, fevers chills or night sweats. He denies shortness of breath. Associated symptoms: Deny dyspnea Review of Systems 2 General: Reports: 10 or more systems reviewed and unremarkable except in HPI and below Card: Reports: chest pain Resp: Denies: dyspnea [facility] ED 2 PFSH: Medical History Uremia Chronic osteomyelitis Type 2 diabetes mellitus 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, limited to breakdown of skin Chronic osteomyelitis of right foot Foot osteomyelitis, right Osteomyelitis Cellulitis Necrosis of surgical wound Foot osteomyelitis, left Hypovolemic shock Anemia of chronic disease Ulcer of sacral region, stage 1 Gas gangrene Acquired equinovarus deformity of left foot Pre-ulcerative calluses Xerosis of skin 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 Cellulitis Diabetes BMI 50.0-59.9, adult Diabetic foot ulcers Fracture, thoracic vertebra T7-T8 Osteomyelitis Non-pressure chronic ulcer of other part of right foot with necrosis of muscle Chronic venous insufficiency Chronic dysfunction of both eustachian tubes Lung nodule Hypoglycemia unawareness associated with type 2 diabetes mellitus Chronic ulcer of left foot with fat layer exposed Non-healing ulcer of right foot with fat layer exposed Vitamin D deficiency First degree heart block COPD (chronic obstructive pulmonary disease) Hypertension Urinary retention History of renal cell carcinoma Morbid obesity with BMI of 40.0-44.9, adult Cardiac arrest (~07/2020) when had covid Anemia Pneumonia due to 2019-nCoV (~07/2020) Renal cell carcinoma History bilateral renal cell carcinoma 2007 then recurrence on the contralateral side 2011. No recurrence for long-term follow-up with some suspicion on CT scan April 2020. CHF (congestive heart failure), NYHA class III Chronic respiratory failure with hypoxia and hypercapnia Obesity hypoventilation syndrome Metabolic alkalosis Accelerated hypertension Restrictive lung disease Obstructive sleep apnea non compliant with home bipap/cpap Fracture of fourth metatarsal bone of left foot Type 2 diabetes mellitus with diabetic polyneuropathy PVD (peripheral vascular disease) Fracture of fifth metatarsal bone of left foot Neuropathy Surgical History Status post below-knee amputation of left lower extremity History of left below knee amputation History of cataract surgery H/O wisdom tooth extraction Hx of lymph node excision H/O partial nephrectomy bilateral Family History Father , at age 65 Diabetes Cancer Metastatic prostate cancer to liver Mother , at age 72 Diabetes Grandfather Diabetes Cancer Other Anemia Hyperlipidemia Social History Smoking and tobacco/nicotine status: never used tobacco/nicotine Second hand smoke exposure: Yes Alcohol intake: current Alcohol intake frequency: holidays/special occasions only Substance/Drug Use: never Lives independently: Yes Household members: spouse Housing: House Marital status: service: No Current occupational status: retired Pets and animals: Yes Do you think of yourself as: Straight/Heterosexual Current gender identity: Male Physical Exam 2 Narrative: EXAM NARRATIVE: Constitutional: Ill-appearing, frail, in poor health. Alert and oriented x 4. Vital signs reviewed as documented. HENMT: Normocephalic, atraumatic. External ears normal appearance without drainage. Nose without drainage, normal appearance. Mucus membranes moist. Neck is supple, No jugular venous distension, trachea is midline, no appreciable carotid bruits. No lymphadenopathy. No meningeal signs. Flexion, extension and lateral rotation is without pain. Eyes: Pupils are equal, round, reactive to light and accommodation. No scleral icterus. Extra-ocular movement are intact. Thorax is symmetrical and with equal rise and fall with respirations. Resp: Lungs are clear to auscultation. No wheezes, rales, crackles or ronchi at present. Cardio: Regular rate and rhythm. Positive S1, S2. No appreciable murmurs, rubs or gallops. GI: Abdominal exam reveals normal bowel sounds to all quadrants. Distended, firm, abdominal ascites noted, striae to the abdomen. Left lower abdominal wall with quarter size healing wound. Patient does have an umbilical hernia noted. non-tender to palpation. Extremity: Left below the knee amputation noted. Right lower extremity with chronic venous stasis changes and multiple ulcerations at various stages of healing. Left forearm with AV fistula positive thrill and bruit noted. Neuro: Alert and oriented x4, person, place, time and situation. Cranial nerves II through XII are grossly intact, there is no focal neurological deficits that I can appreciate at present. Sensation intact to all extremities. 2-point discrimination intact. Light touch intact to all extremities. Motor strength in the upper extremities are equal and bilateral 5/5. Psych: Cooperative, calm, normal thought process, appropriate judgment. Skin: Right lower extremity with multiple ulcerations at various stages of healing, chronic venous stasis changes noted to the lower extremity. Left BKA. Back: Symmetrical, no obvious deformity, No CVA tenderness Course 2 Vital Signs: Vital signs: Vital Signs Temperature 97.5 F L 10/16/23 04:01 Pulse Rate 70 10/16/23 09:31 Respiratory Rate 16 10/16/23 18:19 Blood Pressure 83/48 10/16/23 07:39 Pulse Oximetry 100 10/16/23 18:19 Oxygen Delivery Me thod Room Air 10/16/23 12:05 Oxygen Flow Rate 3 10/16/23 09:31 MDM - Chest Pain Medical Decision Making Physical exam completed and documented I did obtain a CBC and a CMP and cardiac enzyme he does have significantly elevated initial troponin no ST elevation or depression on the initial EKG. Given the patient's coronary artery disease and peripheral arterial disease I have started a heparin drip and a heparin bolus as his initial troponin was significantly elevated. He states he has not missed any of his anticoagulation doses. I will contact the hospital physician and request admission for NSTEMI. Medical Records I reviewed the patient's medical records. Lab Data I reviewed the patient's lab results. 10/16/23 04:11 10/16/23 04:11 Radiology Impressions Chest X-Ray 10/16/23 07:38 IMPRESSION: 1. Right jugular central line with tip in right atrium. 2. No pneumothorax. 3. Cardiomegaly with pulmonary vascular congestion. Tibia/Fibula X-Ray 10/16/23 08:42 IMPRESSION: 1. Circumferential soft tissue swelling is evident. 2. No acute osseous pathology. Laboratory Results WBC 4.22 10^3/uL (3.29-11.43) 10/16/23 04:11 RBC 3.56 10^6/uL (3.85-5.65) L 10/16/23 04:11 Hgb 9.70 g/dL (11.27-16.99) L 10/16/23 04:11 Hct 32.9 % (37-53) L 10/16/23 04:11 MCV 92.4 fl (82-101) 10/16/23 04:11 MCH 27.2 pg (27-33) 10/16/23 04:11 MCHC 29.5 g/dL (30-55) L 10/16/23 04:11 RDW 17.6 % (12.1-15.1) H 10/16/23 04:11 Plt Count 121 10^3/cmm (157-399) L 10/16/23 04:11 MPV 10.6 fL (7.4-10.4) H 10/16/23 04:11 Neut % (Auto) 67.8 % 10/16/23 04:11 Lymph % (Auto) 11.8 % 10/16/23 04:11 Young % (Auto) 13.7 % 10/16/23 04:11 Eos % (Auto) 6.2 % 10/16/23 04:11 Baso % (Auto) 0.5 % 10/16/23 04:11 Neut # (Auto) 2.86 10^3/uL (1.8-7.7) 10/16/23 04:11 Lymph # (Auto) 0.5 10^3/uL (0.8-4.8) L 10/16/23 04:11 Young # (Auto) 0.6 10^3/uL (0.2-0.9) 10/16/23 04:11 Eos # (Auto) 0.3 10^3/uL (0.0-0.8) 10/16/23 04:11 Baso # (Auto) 0.0 10^3/uL (0.0-0.1) 10/16/23 04:11 Nucleated RBC % (auto) 0 % 10/16/23 04:11 Nucleated RBCs # 0.0 /100WBC 10/16/23 04:11 PT 17.80 SECONDS (12.1-14.9) H 10/16/23 04:11 INR 1.42 (0.8-1.2) H 10/16/23 04:11 APTT 31.1 SECONDS (23.9-36.7) 10/16/23 04:11 Sodium 138 mmol/L (136-145) 10/16/23 04:11 Potassium 5.3 mmol/L (3.5-5.1) H 10/16/23 04:11 Chloride 94 mmol/L (98-107) L 10/16/23 04:11 Carbon Dioxide 30 mmol/L (22-29) H 10/16/23 04:11 Anion Gap 19.3 (5-19) H 10/16/23 04:11 BUN 119 mg/dL (6-20) H* D 10/16/23 04:11 Creatinine 7.8 mg/dL (0.7-1.2) H* 10/16/23 04:11 GFR Calculation 7.3 mL/min (90-130) L 10/16/23 04:11 Glucose 101 mg/dL (65-115) 10/16/23 04:11 Calculated Osmolality 324 mOsm/kg (285-295) H 10/16/23 04:11 Calcium 7.5 mg/dL (8.5-10.5) L 10/16/23 04:11 Total Bilirubin 0.4 mg/dL (0.15-1.2) 10/16/23 04:11 AST 11 U/L (0-40) 10/16/23 04:11 ALT 12 U/L (0-41) 10/16/23 04:11 Alkaline Phosphatase 75 U/L (40-130) 10/16/23 04:11 Troponin T Baseline 434 ng/L (0-15) H* 10/16/23 04:11 Troponin T 120 Minute 438.7 ng/L (0-15) H 10/16/23 06:00 Delta Troponin T 4.7 ABS# (0-10) 10/16/23 06:00 NT-Pro-B Natriuret Pep > 01687 pg/mL (0-125) H 10/16/23 04:11 Total Protein 6.0 g/dL (6.6-8.7) L 10/16/23 04:11 Albumin 3.4 g/dL (3.5-5.2) L 10/16/23 04:11 Globulin 2.6 g/dL (1.3-4.6) 10/16/23 04:11 Hep Bs Antigen Non-reactive (Nonreactive) 10/16/23 04:11 Hep Bs Antibody 56.8 (11.5-1000) 10/16/23 04:11 All radiology interpretation(s) finalized by discharge EKG Data EKG 1: Interpretation: Twelve-lead EKG obtained at 0405 and reviewed at 0407 demonstrates sinus rhythm with a first-degree AV block. Ventricular rate of 93 bpm, OR interval 07/31/2010, QRS duration 91 QT 370 QTc [address] elevation or depression at present. Discharge Plan Discharge Patient Disposition: Admitted As Inpatient Admit Provider: Chris Johansen Clinical Impression: Acute non-ST elevation myocardial infarction (NSTEMI), End-stage renal disease on hemodialysis Chest pain Qualifiers: Chest pain type: unspecified Qualified Code(s): R07.9 - Chest pain, unspecified Condition: Stable Coding Level of Care Code ED Teller Supervisor for Chg Fwd Documented by User: Jerry Bradford DO 10/16/23 07:42 HPI - Chest Pain 2 General: Chief Complaint: Chest Pain Stated Complaint: CP Time Seen by Provider: 10/16/23 04:01 PFS ED 2 PFSH: Medical History Uremia Chronic osteomyelitis Type 2 diabetes mellitus 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, limited to breakdown of skin Chronic osteomyelitis of right foot Foot osteomyelitis, right Osteomyelitis Cellulitis Necrosis of surgical wound Foot osteomyelitis, left Hypovolemic shock Anemia of chronic disease Ulcer of sacral region, stage 1 Gas gangrene Acquired equinovarus deformity of left foot Pre-ulcerative calluses Xerosis of skin 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 Cellulitis Diabetes BMI 50.0-59.9, adult Diabetic foot ulcers Fracture, thoracic vertebra T7-T8 Osteomyelitis Non-pressure chronic ulcer of other part of right foot with necrosis of muscle Chronic venous insufficiency Chronic dysfunction of both eustachian tubes Lung nodule Hypoglycemia unawareness associated with type 2 diabetes mellitus Chronic ulcer of left foot with fat layer exposed Non-healing ulcer of right foot with fat layer exposed Vitamin D deficiency First degree heart block COPD (chronic obstructive pulmonary disease) Hypertension Urinary retention History of renal cell carcinoma Morbid obesity with BMI of 40.0-44.9, adult Cardiac arrest (~07/2020) when had covid Anemia Pneumonia due to 2019-nCoV (~07/2020) Renal cell carcinoma History bilateral renal cell carcinoma 2007 then recurrence on the contralateral side 2011. No recurrence for long-term follow-up with some suspicion on CT scan April 2020. CHF (congestive heart failure), NYHA class III Chronic respiratory failure with hypoxia and hypercapnia Obesity hypoventilation syndrome Metabolic alkalosis Accelerated hypertension Restrictive lung disease Obstructive sleep apnea non compliant with home bipap/cpap Fracture of fourth metatarsal bone of left foot Type 2 diabetes mellitus with diabetic polyneuropathy PVD (peripheral vascular disease) Fracture of fifth metatarsal bone of left foot Neuropathy Surgical History Status post below-knee amputation of left lower extremity History of left below knee amputation History of cataract surgery H/O wisdom tooth extraction Hx of lymph node excision H/O partial nephrectomy bilateral Family History Father , at age 65 Diabetes Cancer Metastatic prostate cancer to liver Mother , at age 72 Diabetes Grandfather Diabetes Cancer Other Anemia Hyperlipidemia Social History Smoking and tobacco/nicotine status: never used tobacco/nicotine Second hand smoke exposure: Yes Alcohol intake: current Alcohol intake frequency: holidays/special occasions only Substance/Drug Use: never Lives independently: Yes Household members: spouse Housing: House Marital status: service: No Current occupational status: retired Pets and animals: Yes Do you think of yourself as: Straight/Heterosexual Current gender identity: Male Procedures Central Line Placement Right IJ: Time Out Performed: Yes Patient Placed on Monitor/Pulse Ox: Yes MD Prep: mask, gown and gloves Central Line Prep: Chlorhexidine scrub Local Anesthetic: lidocaine 1% Amount of anesthesia used (mL): 5 Central Line Lumen Inserted: triple Post Procedure: sutured in place, good blood return, all ports aspirated, flushed, capped and sterile dressing applied Post Procedure X-Ray: tip of catheter in good position and no pneumothorax seen Patient Tolerated Procedure: well Complications: none Additional Comments: Patient was seen and evaluated and admitted by Dr. Bullard to the hospitalist service. I was asked by Dr. Bullard to place a central line due to difficulty with IV access. Central line placed under ultrasound guidance without complication. Course 2 Vital Signs: Vital signs: Vital Signs Temperature 97.5 F L 10/16/23 04:01 Pulse Rate 70 10/16/23 09:31 Respiratory Rate 16 10/16/23 18:19 Blood Pressure 83/48 10/16/23 07:39 Pulse Oximetry 100 10/16/23 18:19 Oxygen Delivery Me thod Room Air 10/16/23 12:05 Oxygen Flow Rate 3 10/16/23 09:31 MDM - Chest Pain Lab Data 10/16/23 04:11 10/16/23 04:11 Radiology Impressions Chest X-Ray 10/16/23 07:38 IMPRESSION: 1. Right jugular central line with tip in right atrium. 2. No pneumothorax. 3. Cardiomegaly with pulmonary vascular congestion. Tibia/Fibula X-Ray 10/16/23 08:42 IMPRESSION: 1. Circumferential soft tissue swelling is evident. 2. No acute osseous pathology. Laboratory Results WBC 4.22 10^3/uL (3.29-11.43) 10/16/23 04:11 RBC 3.56 10^6/uL (3.85-5.65) L 10/16/23 04:11 Hgb 9.70 g/dL (11.27-16.99) L 10/16/23 04:11 Hct 32.9 % (37-53) L 10/16/23 04:11 MCV 92.4 fl (82-101) 10/16/23 04:11 MCH 27.2 pg (27-33) 10/16/23 04:11 MCHC 29.5 g/dL (30-55) L 10/16/23 04:11 RDW 17.6 % (12.1-15.1) H 10/16/23 04:11 Plt Count 121 10^3/cmm (157-399) L 10/16/23 04:11 MPV 10.6 fL (7.4-10.4) H 10/16/23 04:11 Neut % (Auto) 67.8 % 10/16/23 04:11 Lymph % (Auto) 11.8 % 10/16/23 04:11 Young % (Auto) 13.7 % 10/16/23 04:11 Eos % (Auto) 6.2 % 10/16/23 04:11 Baso % (Auto) 0.5 % 10/16/23 04:11 Neut # (Auto) 2.86 10^3/uL (1.8-7.7) 10/16/23 04:11 Lymph # (Auto) 0.5 10^3/uL (0.8-4.8) L 10/16/23 04:11 Young # (Auto) 0.6 10^3/uL (0.2-0.9) 10/16/23 04:11 Eos # (Auto) 0.3 10^3/uL (0.0-0.8) 10/16/23 04:11 Baso # (Auto) 0.0 10^3/uL (0.0-0.1) 10/16/23 04:11 Nucleated RBC % (auto) 0 % 10/16/23 04:11 Nucleated RBCs # 0.0 /100WBC 10/16/23 04:11 PT 17.80 SECONDS (12.1-14.9) H 10/16/23 04:11 INR 1.42 (0.8-1.2) H 10/16/23 04:11 APTT 31.1 SECONDS (23.9-36.7) 10/16/23 04:11 Sodium 138 mmol/L (136-145) 10/16/23 04:11 Potassium 5.3 mmol/L (3.5-5.1) H 10/16/23 04:11 Chloride 94 mmol/L (98-107) L 10/16/23 04:11 Carbon Dioxide 30 mmol/L (22-29) H 10/16/23 04:11 Anion Gap 19.3 (5-19) H 10/16/23 04:11 BUN 119 mg/dL (6-20) H* D 10/16/23 04:11 Creatinine 7.8 mg/dL (0.7-1.2) H* 10/16/23 04:11 GFR Calculation 7.3 mL/min (90-130) L 10/16/23 04:11 Glucose 101 mg/dL (65-115) 10/16/23 04:11 Calculated Osmolality 324 mOsm/kg (285-295) H 10/16/23 04:11 Calcium 7.5 mg/dL (8.5-10.5) L 10/16/23 04:11 Total Bilirubin 0.4 mg/dL (0.15-1.2) 10/16/23 04:11 AST 11 U/L (0-40) 10/16/23 04:11 ALT 12 U/L (0-41) 10/16/23 04:11 Alkaline Phosphatase 75 U/L (40-130) 10/16/23 04:11 Troponin T Baseline 434 ng/L (0-15) H* 10/16/23 04:11 Troponin T 120 Minute 438.7 ng/L (0-15) H 10/16/23 06:00 Delta Troponin T 4.7 ABS# (0-10) 10/16/23 06:00 NT-Pro-B Natriuret Pep > 05419 pg/mL (0-125) H 10/16/23 04:11 Total Protein 6.0 g/dL (6.6-8.7) L 10/16/23 04:11 Albumin 3.4 g/dL (3.5-5.2) L 10/16/23 04:11 Globulin 2.6 g/dL (1.3-4.6) 10/16/23 04:11 Hep Bs Antigen Non-reactive (Nonreactive) 10/16/23 04:11 Hep Bs Antibody 56.8 (11.5-1000) 10/16/23 04:11 Discharge Plan Discharge Patient Disposition: Admitted As Inpatient Admit Provider: Chris Johansen Clinical Impression: Acute non-ST elevation myocardial infarction (NSTEMI), End-stage renal disease on hemodialysis Chest pain Qualifiers: Chest pain type: unspecified Qualified Code(s): R07.9 - Chest pain, unspecified Condition: Stable Coding Level of Care Code ED Teller Supervisor for Patricia Reid
[2023-10-16 04:28] LABS: INR 1.42 (0.8-1.2); Partial Thromboplastin Time 31.1 SECONDS (23.9-36.7)
[2023-10-16 04:47] LABS: Troponin(5th) Baseline 434 ng/L (0-15)
[2023-10-16 04:48] LABS: Alanine Aminotransferase 12 U/L (0-41); Albumin Level 3.4 g/dL (3.5-5.2); Alkaline Phosphatase 75 U/L (40-130); Anion Gap 19.3 (5-19); Aspartate Amino Transferase 11 U/L (0-40); Calcium 7.5 mg/dL (8.5-10.5); Carbon Dioxide 30 mmol/L (22-29); Chloride 94 mmol/L (98-107); Globulin 2.6 g/dL (1.3-4.6); Glomerular Filtration Rate 7.3 mL/min (90-130); Glucose 101 mg/dL (65-115); Potassium 5.3 mmol/L (3.5-5.1); Sodium 138 mmol/L (136-145); Total Bilirubin 0.4 mg/dL (0.15-1.2)
[2023-10-16 04:54] LABS: Osmolality Calculated 324 mOsm/kg (285-295)
[2023-10-16 04:55] LABS: Blood Urea Nitrogen 119 mg/dL (6-20); Creatinine Clr Calc Pharmacy 14.4534
[2023-10-16] MEDS: heparin 5,000 unit/mL INJ 1 mL 4000 UNIT IVP (04:58)
[2023-10-16 05:30] LABS: NT Pro B Type Natriuretic Pept > 35000 pg/mL (0-125)
[2023-10-16] MEDS: heparin drip 25,000 UNIT/500 ML PREMIX 31.75 UNIT IV ×2 (05:30→20:51)
[2023-10-16 06:31] LABS: Troponin 5 2HR Delta 4.7 ABS# (0-10)
[2023-10-16 06:35] LABS: Troponin 5 2HR 438.7 ng/L (0-15)
--- NOTE | 2023-10-16 06:47 | ECG_ITS ---
[facility] Test Date: 2023-10-16 Pat Name: Akil Velasco Department: Room: ICU12 Gender: Male [employer] Art In[employer]: : 1970 Requested By: Sunday Bullard Order Number: [id number] MD: Erik Arguelles M.D. Measurements Intervals [place] Rate: 90 P: 47 [place]: 200 QRS: 129 QRSD: 96 T: 11 QT: 382 QTc: 470 Interpretive Statements SINUS RHYTHM POSSIBLE RIGHT VENTRICULAR HYPERTROPHY [SOME/ALL OF: PROMINENT R IN V1, LATE TRANSITION, RAD, JEROME, SSS] Compared to ECG 10/16/2023 04:05:50 First degree AV block no longer present Incomplete right bundle-branch block no longer present Myocardial infarct finding no longer present Electronically Signed On 10-16-2023 21:42:40 CDT by Erik Arguelles M.D. [id number]
--- NOTE | 2023-10-16 07:10 | PC.NURSE ---
Report given to EARNEST Desir
--- NOTE | 2023-10-16 07:17 | PM.HP ---
Providers/Chief Complaint Admitting Physician: Chris Johansen MD Primary Care Provider: Sulma Wetzel MD Chief Complaint: CP History of Present Illness Akil Velasco is a 53 year old male with history of coronary disease, was transferred to [facility] in May, patient is stating that [facility] transfer to [place] and at [place] he had 3 stents in LAD, he gets dialyzed Sunday, frequent paracentesis for his liver failure as well and recurrent ascites, he is a left leg amputee with uncontrolled diabetes weeping wounds of right leg there is concern for osteomyelitis of right leg as well presenting with chief complaint of chest pain. Patient is stating that he got paracentesis done yesterday, he came to the hospital because around 3 AM chest pain woke him up which she describing as excruciating pressure in his chest substernal, it lasted until he received nitroglycerin he did not express nausea vomiting . At baseline he is short of breath, at the time of evaluation his chest pain-free He has been diagnosed with non-STEMI, secondary to low blood pressure central line has been placed in the ER Heparin drip along Levophed has been initiated Patient will go to ICU Will consult nephrology and cardiology Patient is stating that he is only taking Plavix, he was never asked to take aspirin, he is not sure about the reason Review of Systems Const: Denies: fever(s) Eyes: Denies: change in vision ENMT: Denies: throat pain Card: Reports: chest pain Resp: Reports: dyspnea GI: Reports: abdominal pain and nausea : Denies: flank pain Musc: Reports: back pain Skin/Breast: Reports: rash Medications/Allergies Home Medications Medication Instructions Recorded Confirmed Last Taken Type Wheel Chair #1 ea 08/18/21 10/16/23 10/01/23 Rx ropinirole 0.25 mg tablet 0.25 mg PO BEDTIME PRN Restless 08/22/21 10/16/23 10/01/23 History Leg(S) ondansetron HCl 4 mg tablet 4 mg PO Q4H PRN Nausea 04/11/22 10/16/23 10/01/23 History Compression Stockings #1 ea 04/12/22 10/16/23 10/01/23 Rx torres martinez boot modification #1 ea 07/17/22 10/16/23 10/01/23 Rx oxycodone 5 mg tablet 5 mg PO Q6H PRN Pain 08/16/22 10/16/23 10/01/23 History sevelamer carbonate 800 mg tablet See Rx Instructions .Route .COMPLEX 09/18/22 10/16/23 10/01/23 History B-complex with vitamin C 1 cap PO DAILY 10/16/22 10/16/23 10/01/23 History albuterol sulfate 90 mcg/actuation 2 puff inhalation Q6H PRN 10/16/22 10/16/23 09/24/23 History aerosol inhaler Shortness Of Breath diphenhydramine HCl 25 mg tablet 25 mg PO DAILY PRN itching 10/16/22 10/16/23 09/25/23 History (Benadryl Allergy) hydroxyzine HCl 25 mg tablet 25 mg PO Q6H PRN Anxiety 10/16/22 10/16/23 10/01/23 History polyethylene glycol 3350 17 17 g PO BID PRN Constipation 10/16/22 10/16/23 10/01/23 History gram/dose oral powder (Miralax) venlafaxine 75 mg capsule,extended 75 mg PO QAM 10/16/22 10/16/23 10/01/23 History release 24 hr (Effexor XR) Prevalon boot #1 ea 11/21/22 10/16/23 10/01/23 Rx cilostazol 50 mg tablet 50 mg PO BID 11/21/22 10/16/23 10/01/23 History diabetic shoes with 3 heat molded #1 ea 12/15/22 10/16/23 10/01/23 Rx insoles gabapentin 300 mg capsule 300 mg PO TID PRN NERVE PAIN 01/02/23 10/16/23 10/01/23 History vit B,C-folic ac 800 mcg-zinc 12.5 1 tab PO DAILY 05/07/23 10/16/23 10/01/23 History mg-selen-D3 2,000 unit-vit E tablet (RenaPlex-D) atorvastatin 80 mg tablet 80 mg PO DAILY 07/02/23 10/16/23 10/01/23 History clopidogrel 75 mg tablet 75 mg PO DAILY 07/02/23 10/16/23 10/01/23 History pantoprazole 40 mg tablet,delayed 40 mg PO DAILY 07/02/23 10/16/23 10/01/23 History release metoprolol succinate 25 mg 25 mg PO DAILY 07/27/23 10/16/23 10/01/23 History tablet,extended release 24 hr mirtazapine 30 mg disintegrating 30 mg PO DAILY 07/27/23 10/16/23 10/01/23 History tablet nitroglycerin 0.1 mg/hr 1 patch transdermal DAILY 07/27/23 10/16/23 10/01/23 History transdermal 24 hour patch Garlic Edta 1 tab PO BID 10/16/23 10/16/23 Unknown History arginine 7 gram-glutam 7 1 packet PO BID 10/16/23 10/16/23 Unknown History gram-CaHMB 1.5 dzxi-linmu-uk-min oral pwd pkt (Mehdi (with collagen)) sodium zirconium cyclosilicate 10 See Rx Instructions .Route .COMPLEX 10/16/23 10/16/23 Unknown History gram oral powder packet (Lokelma) trazodone 50 mg tablet 50 mg PO BEDTIME 10/16/23 10/16/23 Unknown History Allergies Allergy/AdvReac Type Severity Reaction Status Date / Time linezolid [From Zyvox] Allergy tendonitis Verified 10/16/23 04:10 vancomycin Allergy ADR-Itching Verified 10/16/23 04:10 ciprofloxacin [From Cipro] AdvReac Severe Tendonitis Verified 10/16/23 04:10 PFSH Acute PFSH: Medical History Uremia Chronic osteomyelitis Type 2 diabetes mellitus 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, limited to breakdown of skin Chronic osteomyelitis of right foot Foot osteomyelitis, right Osteomyelitis Cellulitis Necrosis of surgical wound Foot osteomyelitis, left Hypovolemic shock Anemia of chronic disease Ulcer of sacral region, stage 1 Gas gangrene Acquired equinovarus deformity of left foot Pre-ulcerative calluses Xerosis of skin 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 Cellulitis Diabetes BMI 50.0-59.9, adult Diabetic foot ulcers Fracture, thoracic vertebra T7-T8 Osteomyelitis Non-pressure chronic ulcer of other part of right foot with necrosis of muscle Chronic venous insufficiency Chronic dysfunction of both eustachian tubes Lung nodule Hypoglycemia unawareness associated with type 2 diabetes mellitus Chronic ulcer of left foot with fat layer exposed Non-healing ulcer of right foot with fat layer exposed Vitamin D deficiency First degree heart block COPD (chronic obstructive pulmonary disease) Hypertension Urinary retention History of renal cell carcinoma Morbid obesity with BMI of 40.0-44.9, adult Cardiac arrest (~07/2020) when had covid Anemia Pneumonia due to 2019-nCoV (~07/2020) Renal cell carcinoma History bilateral renal cell carcinoma 2007 then recurrence on the contralateral side 2011. No recurrence for long-term follow-up with some suspicion on CT scan April 2020. CHF (congestive heart failure), NYHA class III Chronic respiratory failure with hypoxia and hypercapnia Obesity hypoventilation syndrome Metabolic alkalosis Accelerated hypertension Restrictive lung disease Obstructive sleep apnea non compliant with home bipap/cpap Fracture of fourth metatarsal bone of left foot Type 2 diabetes mellitus with diabetic polyneuropathy PVD (peripheral vascular disease) Fracture of fifth metatarsal bone of left foot Neuropathy Surgical History Status post below-knee amputation of left lower extremity History of left below knee amputation History of cataract surgery H/O wisdom tooth extraction Hx of lymph node excision H/O partial nephrectomy bilateral Family History Father , at age 65 Diabetes Cancer Metastatic prostate cancer to liver Mother , at age 72 Diabetes Grandfather Diabetes Cancer Other Anemia Hyperlipidemia Social History Smoking and tobacco/nicotine status: never used tobacco/nicotine Second hand smoke exposure: Yes Alcohol intake: current Alcohol intake frequency: holidays/special occasions only Substance/Drug Use: never Lives independently: Yes Household members: spouse Housing: House Marital status: service: No Current occupational status: retired Pets and animals: Yes Do you think of yourself as: Straight/Heterosexual Current gender identity: Male Vitals/I&O/Wt Last Vital Signs Temp 97.5 F L 10/16/23 04:01 Pulse 90 10/16/23 07:11 Resp 18 10/16/23 07:11 BP 90/54 10/16/23 07:11 Pulse Ox 93 10/16/23 07:11 O2 Del Method Nasal Cannula 10/16/23 04:36 O2 Flow Rate 2 10/16/23 04:36 Weight last 48 hrs Weight 113.398 kg Physical Exam Narrative: Anasarca Umbilical hernia GCS 15 S1, S2 Currently on 2 L Central line right IJ in place caput mudasea Right leg with purulent cellulitis active oozing Ischemic ulcers noted on right foot as well Patient is awake and alert No active chest pain Data 10/16/23 04:11 10/16/23 04:11 A&P Assessment and plan (1) Noncompliance: (2) Acute non-ST elevation myocardial infarction (NSTEMI): (3) Left main coronary artery disease: (4) Shock: (5) 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, limited to breakdown of skin: (6) Ascites: (7) End-stage renal disease on hemodialysis: (8) Anemia: (9) Acute and chronic respiratory failure with hypoxia: (10) Anasarca: Plan Non-STEMI No active chest pain Improved with nitroglycerin Troponin significantly elevated Patient is only taking Plavix I do not see any aspirin, he is not sure why he is only taking Plavix I do not see any anticoagulating agent as well in his medication Cardiology consulted In May patient was transferred to [facility] and from there he was transferred to [place] stating he got 3 stents placed in LAD Acute reduced ejection fraction heart failure exacerbation Not a candidate for diuresis at this time secondary to low blood pressure End-stage renal disease Sunday Hyperkalemia, will need dialysis today Liver failure requiring paracentesis for abdominal ascites recent paracentesis was done on Saturday 10/14 No acute exacerbation Diabetic, left leg amputee Right leg concern for osteomyelitis Purulent cellulitis Will request x-rays History of chronic osteomyelitis as well Follows up with wound care Anemia of chronic disease hemoglobin 9.7 Cardiogenic shock Will start Levophed for now Central line was placed in the ER Admit to ICU Attestations Medical Necessity Statement*: More than 2 midnights anticipated Diagnoses Noncompliance Z91.199 Acute non-ST elevation myocardial infarction (NSTEMI) I21.4 Left main coronary artery disease I25.10 Shock R57.9 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, limited to breakdown of skin E11.622; L97.301 Ascites R18.8 End-stage renal disease on hemodialysis N18.6; Z99.2 Anemia D64.9 Acute and chronic respiratory failure with hypoxia J96.21 Anasarca R60.1
--- NOTE | 2023-10-16 07:22 | PC.PHAR ---
pt states he takes care of his own medications-pt states he had a home health nurse but since he went to [place] he lost his home health nurse-pt states he has been taking care of his own medications-pt states he has a build up of his medications-pt states he is still taking lipitor 80mg daily (ext shows last filled 07/11/23 30d/s)-cilostazol 50mg bid (ext shows last filled 04/28/23 30d/s)-plavix 75mg daily (ext shows last filled 07/11/23 30d/s)-gabapentin 300mg tid prn (ext shows last filled 08/07/23 30d/s)-hydroxyzine hcl 25mg q6h prn (ext shows last filled 07/11/23 30d/s)-metoprolol succinate er 25mg daily (ext shows last filled 07/11/23 30d/s)-nitro 0.1mg/hr patch daily (ext shows last filled 07/11/23 30d/s)-protonix 40mg daily (ext shows last filled 07/11/23 30d/s)-ropinirole 0.25mg hs prn (ext shows last filled 07/11/23 30d/s)-trazodone 50mg (ext shows last filled 07/11/23 30d/s)-and lokelma (ext shows last filled 07/11/23 30d/s-notes are made in the pharmacy comments
--- NOTE | 2023-10-16 07:38 | XRR_ITS ---
PROCEDURE INFORMATION: Exam: XR Chest Exam date and time: 10/16/2023 7:38 AM Age: 53 years old Clinical indication: Device placement; Other: Central line placement TECHNIQUE: Imaging protocol: Radiologic exam of the chest. Views: 1 view. Total images: 2 COMPARISON: CR (CHEST, ) 10/16/2023 4:12 AM FINDINGS: Tubes, catheters and devices: Right jugular central line with tip in right atrium. Lungs: Pulmonary vascular congestion. Pleural spaces: No pneumothorax. Heart/Mediastinum: Cardiomegaly. Bones/joints: Osseous structures are unchanged from the prior exam. XR/XR chest 1V portable [id number] IMPRESSION: 1. Right jugular central line with tip in right atrium. 2. No pneumothorax. 3. Cardiomegaly with pulmonary vascular congestion.
[2023-10-16] MEDS: norepinephrine 4 MG/250 ML BAG 9.38000000000000078 MG IV (08:10)
--- NOTE | 2023-10-16 08:42 | USCV_ITS ---
Akil Velasco Age: 53 Gender: M : 1970 Exam Date: 10/16/2023 19:14 Ordering Phys: Chris Johansen MD Technologist: DEVIN [place] [facility] [place] order says UA end-stage renal dz on dialysis, s/p cardiac stents at [place] May 2023, unresponsive in ICU-8 BP: 140 / 98 HR: 98 Rhythm: Atrial fibrillation Technical Quality: Adequate MEASUREMENTS (Male / Female) Normal Values 2D ECHO LV Diastolic Diameter PLAX 5.6 cm 4.2 - 5.9 / 3.9 - 5.3 cm IVS Diastolic Thickness 2.1 cm 0.6 - 1.0 / 0.6 - 0.9 cm IVS Systolic Thickness 2.3 cm LVPW Diastolic Thickness 1.3 cm 0.6 - 1.0 / 0.6 - 0.9 cm LVPW Systolic Thickness 2.0 cm LVOT Diameter 2.2 cm LV Ejection Fraction 2D Teich 55.0 % LV Ejection Fraction MOD 2C 63.6 % LV Ejection Fraction 2C AL 64.8 % LA Diameter 6.0 cm Aorta at Sinotubular Diameter 3.0 cm IVC Diameter 3.2 cm M-MODE LA Ao Ratio MM 1.6 AV Cusp Separation MM 1.2 cm DOPPLER AV Peak Velocity 327.0 cm/s LVOT Peak Velocity 78.0 cm/s AV Area Cont Eq vti 0.9 cm squared AV Area Cont Eq pk 0.9 cm squared MV Peak Velocity 206.0 cm/s MV Area PHT 4.9 cm squared Mitral E to A Ratio 0.0 TV Peak Velocity 231.0 cm/s TR Peak Velocity 258.0 cm/s TR Peak Gradient 26.6 mmHg TV Peak E Velocity 65.0 cm/s Right Atrial Pressure 10.0 mmHg Pulmonary Artery Systolic Pressu 36.6 mmHg PV Peak Velocity 91.0 cm/s FINDINGS Left Ventricle Left ventricle is normal in size. LV systolic function is normal with EF of 50-55%. No regional wall motion abnormalities are seen. Right Ventricle Right ventricle is dilated. It is moderate to severely hypokinetic Right Atrium Dilated Left Atrium Dilated Mitral Valve Mitral valve is thickened and calcified. Mild mitral regurgitation. Aortic Valve Aortic valve is thickened and calcified. Moderate to severe aortic stenosis with aortic valve area of 0.9 cm squared and mean gradient of 23 mmHg. Tricuspid Valve Mild tricuspid regurgitation. Pulmonary artery systolic pressure is 35 to 40 mmHg. This is consistent with mild pulmonary hypertension. Pulmonic Valve Grossly normal Pericardium Normal Aorta Normal in size IVC Appears dilated CONCLUSIONS LV systolic function is normal with EF of 50 to 55%. RV is dilated and moderate to severely hypokinetic. Biatrial dilation Mild mitral regurgitation Moderate to severe aortic stenosis. Mild tricuspid regurgitation Mild pulmonary hypertension IVC is dilated. Accuate comparison with prior echocardiogram not possible because of limited quality images on previous echocardiogram. However finding of moderate to severe aortic stenosis is new. Erik Arguelles MD (Electronically Signed) Final Date: 17 October 2023 11:55 S
--- NOTE | 2023-10-16 08:42 | XRR_ITS ---
PROCEDURE INFORMATION: Exam: XR Right Tibia and Fibula Exam date and time: 10/16/2023 7:59 AM Age: 53 years old Clinical indication: Pain; Lower leg; Right; Patient HX: Poss osteo, HX of renal cancer TECHNIQUE: Imaging protocol: Radiologic exam of the right tibia and fibula. Views: 2 views. Total images: 445 COMPARISON: CT angio abd aorta runof [id number] 10/11/2023 4:00 PM FINDINGS: Bones/joints: No acute fracture nor subluxation. No osseous erosion nor periosteal reaction. Soft tissues: Circumferential soft tissue swelling is evident. Vasculature: Severe atherosclerotic disease burden is evident. XR/XR tibia fibula RT 2V [id number] IMPRESSION: 1. Circumferential soft tissue swelling is evident. 2. No acute osseous pathology.
[2023-10-16] MEDS: sodium chloride 0.9% 1,000 ML 999 ML IV (09:32)
[2023-10-16] MEDS: clopidogrel 75 mg Tablet PO (09:33)
[2023-10-16] MEDS: atorvastatin 40 mg Tablet PO (09:33)
[2023-10-16 09:34] LABS: Glucose Point of Care 102 mg/dL (70-110)
[2023-10-16] MEDS: vancomycin 1,000 MG in sodium chloride 0.9% 250 ML 250 MG IV (09:34)
[2023-10-16] MEDS: piperacillin-tazobactam 3.375 GM in sodium chloride 0.9% (plus) 50 ML IV ×2 (09:34→20:51)
--- NOTE | 2023-10-16 10:01 | ECG_ITS ---
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 Measurements Intervals [place] Rate: 89 P: 44 IL: 208 QRS: 132 QRSD: 97 T: 19 QT: 371 QTc: 451 Interpretive Statements SINUS RHYTHM WITH SINUS ARRHYTHMIA INCOMPLETE RIGHT BUNDLE BRANCH BLOCK [90+ ms QRS DURATION, TERMINAL R IN V1/V2, 40+ ms S IN I/aVL/V4/V5/V6] POSSIBLE RIGHT VENTRICULAR HYPERTROPHY [SOME/ALL OF: PROMINENT R IN V1, LATE TRANSITION, RAD, JEROME, SSS] Compared to ECG 10/16/2023 06:47:38 Incomplete right bundle-branch block now present Electronically Signed On 10-16-2023 21:42:22 CDT by Erik Arguelles M.D. [id number]
--- NOTE | 2023-10-16 10:31 | P.CONIM_ITS ---
Providers/Reason For Consult 2 Consulting Physician/Specialty*: kommana/Nephrology Reason for Consult*: esrd Attending Physician: Chris Johansen MD Primary Care Provider: Sulma Wetzel MD History of Present Illness History of Present Illness Akil Velasco is a 53 year old male Patient is a 53-year-old male with past medical history of coronary artery disease, hypertension, end-stage renal disease on dialysis per TTS schedule, liver cirrhosis with recurrent ascites and frequent paracentesis, left leg amputation, diabetes presented to the hospital due to chest pain. Patient also underwent paracentesis yesterday. Patient was found to have non-ST elevation NH and is admitted for further management. Other lab data is significant for potassium of 5.3, CO2 13 BUN of 119 and creatinine of 7.8. Hemoglobin was 9.7. Review of Systems 2 Narrative: negative Medications/Allergies Home Medications Medication Instructions Recorded Confirmed Last Taken Type Wheel Chair #1 ea 08/18/21 10/16/23 10/01/23 Rx ropinirole 0.25 mg tablet 0.25 mg PO BEDTIME PRN Restless 08/22/21 10/16/23 10/01/23 History Leg(S) ondansetron HCl 4 mg tablet 4 mg PO Q4H PRN Nausea 04/11/22 10/16/23 10/01/23 History Compression Stockings #1 ea 04/12/22 10/16/23 10/01/23 Rx [place] boot modification #1 ea 07/17/22 10/16/23 10/01/23 Rx oxycodone 5 mg tablet 5 mg PO Q6H PRN Pain 08/16/22 10/16/23 10/01/23 History sevelamer carbonate 800 mg tablet See Rx Instructions .Route .COMPLEX 09/18/22 10/16/23 10/01/23 History B-complex with vitamin C 1 cap PO DAILY 10/16/22 10/16/23 10/01/23 History albuterol sulfate 90 mcg/actuation 2 puff inhalation Q6H PRN 10/16/22 10/16/23 09/24/23 History aerosol inhaler Shortness Of Breath diphenhydramine HCl 25 mg tablet 25 mg PO DAILY PRN itching 10/16/22 10/16/23 09/25/23 History (Benadryl Allergy) hydroxyzine HCl 25 mg tablet 25 mg PO Q6H PRN Anxiety 10/16/22 10/16/23 10/01/23 History polyethylene glycol 3350 17 17 g PO BID PRN Constipation 10/16/22 10/16/23 10/01/23 History gram/dose oral powder (Miralax) venlafaxine 75 mg capsule,extended 75 mg PO QAM 10/16/22 10/16/23 10/01/23 History release 24 hr (Effexor XR) Prevalon boot #1 ea 11/21/22 10/16/23 10/01/23 Rx cilostazol 50 mg tablet 50 mg PO BID 11/21/22 10/16/23 10/01/23 History diabetic shoes with 3 heat molded #1 ea 12/15/22 10/16/23 10/01/23 Rx insoles gabapentin 300 mg capsule 300 mg PO TID PRN NERVE PAIN 01/02/23 10/16/23 10/01/23 History vit B,C-folic ac 800 mcg-zinc 12.5 1 tab PO DAILY 05/07/23 10/16/23 10/01/23 History mg-selen-D3 2,000 unit-vit E tablet (RenaPlex-D) atorvastatin 80 mg tablet 80 mg PO DAILY 07/02/23 10/16/23 10/01/23 History clopidogrel 75 mg tablet 75 mg PO DAILY 07/02/23 10/16/23 10/01/23 History pantoprazole 40 mg tablet,delayed 40 mg PO DAILY 07/02/23 10/16/23 10/01/23 History release metoprolol succinate 25 mg 25 mg PO DAILY 07/27/23 10/16/23 10/01/23 History tablet,extended release 24 hr mirtazapine 30 mg disintegrating 30 mg PO DAILY 07/27/23 10/16/23 10/01/23 History tablet nitroglycerin 0.1 mg/hr 1 patch transdermal DAILY 07/27/23 10/16/23 10/01/23 History transdermal 24 hour patch Garlic Edta 1 tab PO BID 10/16/23 10/16/23 Unknown History arginine 7 gram-glutam 7 1 packet PO BID 10/16/23 10/16/23 Unknown History gram-CaHMB 1.5 hssp-zzfeu-ac-min oral pwd pkt (Mehdi (with collagen)) sodium zirconium cyclosilicate 10 See Rx Instructions .Route .COMPLEX 10/16/23 10/16/23 Unknown History gram oral powder packet (Lokelma) trazodone 50 mg tablet 50 mg PO BEDTIME 10/16/23 10/16/23 Unknown History Allergies Allergy/AdvReac Type Severity Reaction Status Date / Time linezolid [From Zyvox] Allergy tendonitis Verified 10/16/23 04:10 vancomycin Allergy ADR-Itching Verified 10/16/23 04:10 ciprofloxacin [From Cipro] AdvReac Severe Tendonitis Verified 10/16/23 04:10 Current Medications Generic Name Dose Route Start Last Admin Trade Name Freq PRN Reason Stop Dose Admin Atorvastatin Calcium 40 mg 10/16/23 09:00 10/16/23 09:33 Atorvastatin 40 Mg Tablet PO 40 mg DAILY [place] Administration Clopidogrel Bisulfate 75 mg 10/16/23 09:00 10/16/23 09:33 Clopidogrel 75 Mg Tablet PO 75 mg DAILY [place] Administration Heparin Sodium/Sodium Chloride 25,000 unit in 500 mls @ 31.751 mls/hr 10/16/23 05:00 10/16/23 05:30 Heparin Drip IV 14 unit/kg/hr .[id number] [place] 31.75 mls/hr Administration 14 UNIT/KG/HR Piperacillin Sod/Tazobactam 50 mls @ 12.5 mls/hr 10/16/23 09:00 10/16/23 09:34 Sod 3.375 gm/ Sodium Chloride IV 12.5 mls/hr Q12H [place] Administration Vancomycin HCl 1,000 mg/ 250 mls @ 250 mls/hr 10/16/23 09:30 10/16/23 09:34 Sodium Chloride IV 250 mls/hr Q48H [place] Administration Insulin Human Lispro 0 unit 10/16/23 08:42 10/16/23 09:33 Insulin Lispro 100 Unit/1 Ml SUBCUT Not Given TIDWM [place] Protocol Metoprolol Succinate 25 mg 10/16/23 09:00 10/16/23 09:33 Metoprolol Succinate Er (24 Hr) 25 Mg Tablet PO Not Given DAILY [place] PFSH Acute 2 PFSH: Medical History Uremia Chronic osteomyelitis Type 2 diabetes mellitus 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, limited to breakdown of skin Chronic osteomyelitis of right foot Foot osteomyelitis, right Osteomyelitis Cellulitis Necrosis of surgical wound Foot osteomyelitis, left Hypovolemic shock Anemia of chronic disease Ulcer of sacral region, stage 1 Gas gangrene Acquired equinovarus deformity of left foot Pre-ulcerative calluses Xerosis of skin 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 Cellulitis Diabetes BMI 50.0-59.9, adult Diabetic foot ulcers Fracture, thoracic vertebra T7-T8 Osteomyelitis Non-pressure chronic ulcer of other part of right foot with necrosis of muscle Chronic venous insufficiency Chronic dysfunction of both eustachian tubes Lung nodule Hypoglycemia unawareness associated with type 2 diabetes mellitus Chronic ulcer of left foot with fat layer exposed Non-healing ulcer of right foot with fat layer exposed Vitamin D deficiency First degree heart block COPD (chronic obstructive pulmonary disease) Hypertension Urinary retention History of renal cell carcinoma Morbid obesity with BMI of 40.0-44.9, adult Cardiac arrest (~07/2020) when had covid Anemia Pneumonia due to 2019-nCoV (~07/2020) Renal cell carcinoma History bilateral renal cell carcinoma 2007 then recurrence on the contralateral side 2011. No recurrence for long-term follow-up with some suspicion on CT scan April 2020. CHF (congestive heart failure), NYHA class III Chronic respiratory failure with hypoxia and hypercapnia Obesity hypoventilation syndrome Metabolic alkalosis Accelerated hypertension Restrictive lung disease Obstructive sleep apnea non compliant with home bipap/cpap Fracture of fourth metatarsal bone of left foot Type 2 diabetes mellitus with diabetic polyneuropathy PVD (peripheral vascular disease) Fracture of fifth metatarsal bone of left foot Neuropathy Surgical History Status post below-knee amputation of left lower extremity History of left below knee amputation History of cataract surgery H/O wisdom tooth extraction Hx of lymph node excision H/O partial nephrectomy bilateral Family History Father , at age 65 Diabetes Cancer Metastatic prostate cancer to liver Mother , at age 72 Diabetes Grandfather Diabetes Cancer Other Anemia Hyperlipidemia Social History Smoking and tobacco/nicotine status: never used tobacco/nicotine Second hand smoke exposure: Yes Alcohol intake: current Alcohol intake frequency: holidays/special occasions only Substance/Drug Use: never Lives independently: Yes Household members: spouse Housing: House Marital status: service: No Current occupational status: retired Pets and animals: Yes Do you think of yourself as: Straight/Heterosexual Current gender identity: Male Vitals/I&O/Wt Last Vital Signs Temp 97.5 F L 10/16/23 04:01 Pulse 70 10/16/23 09:31 Resp 16 10/16/23 09:31 BP 83/48 10/16/23 07:39 Pulse Ox 94 10/16/23 09:31 O2 Del Method Nasal Cannula 10/16/23 09:31 O2 Flow Rate 3 10/16/23 09:31 Weight last 48 hrs Weight 113.398 kg Physical Exam 2 Narrative: awake ,a lert heent s1s2 rrr per report Lungs clear per report no edema Data 10/16/23 04:11 10/16/23 04:11 A&P Assessment and plan (1) End-stage renal disease on hemodialysis: Plan 1. End-stage renal disease: On TTS schedule as outpatient, patient due for HD today not currently has hyperkalemia and volume overload and uremia. -Plan for dialysis today, ultrafiltration as tolerated 2. Anemia: Hemoglobin 9.7 monitor ALBERTO with HD 3. History of hypertension, resume home meds 4. NSTEMI, management per cardiology. Patient with prior stents. 5. Liver failure with recurrent ascites and paracentesis Patient evaluated using audiovisual cart. Time spent 40 minutes Consult Attestations 2 Medical Necessity Statement: per mark Coding Level of Care Code Acute Code for Chg Fwd Diagnoses End-stage renal disease on hemodialysis N18.6; Z99.2
[2023-10-16 11:19] LABS: Hepatitis B Surface AB 56.8 (11.5-1000); Hepatitis B Surface Antigen Non-Reactive (Nonreactive)
--- NOTE | 2023-10-16 11:43 | P.CONIM_ITS ---
Providers/Reason For Consult 2 Consulting Physician/Specialty*: Erik Arguelles MD/ Cardiology Reason for Consult*: Unstable angina Requesting Physician: Dr Johansen Attending Physician: Chris Johansen MD Primary Care Provider: Sulma Wetzel MD History of Present Illness History of Present Illness Akil Velasco is a 53 year old male With a past medical history of end-stage renal disease, hyperlipidemia, CAD with multiple stents [facility] few months back who presented to hospital withWith severe substernal chest pain. According to patient he woke up in the middle of the night with chest pain. It was excruciating. Resolved with nitros.Again in the hospital he had another episode of severe chest pain.He is hypotensive. His troponin is over 400. No significant uptrend. EKG shows normal sinus rhythm with incomplete right bundle branch block and non specific ST T wave changes. He was not taking aspirin, only on plavix. Review of Systems 2 Const: Denies: fever(s) Eyes: Denies: change in vision ENMT: Denies: throat pain Card: Reports: chest pain Resp: Reports: dyspnea GI: Reports: abdominal pain and nausea : Denies: flank pain Musc: Reports: back pain Skin/Breast: Reports: rash Medications/Allergies Home Medications Medication Instructions Recorded Confirmed Last Taken Type Wheel Chair #1 ea 08/18/21 10/16/23 10/01/23 Rx ropinirole 0.25 mg tablet 0.25 mg PO BEDTIME PRN Restless 08/22/21 10/16/23 10/01/23 History Leg(S) ondansetron HCl 4 mg tablet 4 mg PO Q4H PRN Nausea 04/11/22 10/16/23 10/01/23 History Compression Stockings #1 ea 04/12/22 10/16/23 10/01/23 Rx elim ira boot modification #1 ea 07/17/22 10/16/23 10/01/23 Rx oxycodone 5 mg tablet 5 mg PO Q6H PRN Pain 08/16/22 10/16/23 10/01/23 History sevelamer carbonate 800 mg tablet See Rx Instructions .Route .COMPLEX 09/18/22 10/16/23 10/01/23 History B-complex with vitamin C 1 cap PO DAILY 10/16/22 10/16/23 10/01/23 History albuterol sulfate 90 mcg/actuation 2 puff inhalation Q6H PRN 10/16/22 10/16/23 09/24/23 History aerosol inhaler Shortness Of Breath diphenhydramine HCl 25 mg tablet 25 mg PO DAILY PRN itching 10/16/22 10/16/23 09/25/23 History (Benadryl Allergy) hydroxyzine HCl 25 mg tablet 25 mg PO Q6H PRN Anxiety 10/16/22 10/16/23 10/01/23 History polyethylene glycol 3350 17 17 g PO BID PRN Constipation 10/16/22 10/16/23 10/01/23 History gram/dose oral powder (Miralax) venlafaxine 75 mg capsule,extended 75 mg PO QAM 10/16/22 10/16/23 10/01/23 History release 24 hr (Effexor XR) Prevalon boot #1 ea 11/21/22 10/16/23 10/01/23 Rx cilostazol 50 mg tablet 50 mg PO BID 11/21/22 10/16/23 10/01/23 History diabetic shoes with 3 heat molded #1 ea 12/15/22 10/16/23 10/01/23 Rx insoles gabapentin 300 mg capsule 300 mg PO TID PRN NERVE PAIN 01/02/23 10/16/23 10/01/23 History vit B,C-folic ac 800 mcg-zinc 12.5 1 tab PO DAILY 05/07/23 10/16/23 10/01/23 History mg-selen-D3 2,000 unit-vit E tablet (RenaPlex-D) atorvastatin 80 mg tablet 80 mg PO DAILY 07/02/23 10/16/23 10/01/23 History clopidogrel 75 mg tablet 75 mg PO DAILY 07/02/23 10/16/23 10/01/23 History pantoprazole 40 mg tablet,delayed 40 mg PO DAILY 07/02/23 10/16/23 10/01/23 History release metoprolol succinate 25 mg 25 mg PO DAILY 07/27/23 10/16/23 10/01/23 History tablet,extended release 24 hr mirtazapine 30 mg disintegrating 30 mg PO DAILY 07/27/23 10/16/23 10/01/23 History tablet nitroglycerin 0.1 mg/hr 1 patch transdermal DAILY 07/27/23 10/16/23 10/01/23 History transdermal 24 hour patch Garlic Edta 1 tab PO BID 10/16/23 10/16/23 Unknown History arginine 7 gram-glutam 7 1 packet PO BID 10/16/23 10/16/23 Unknown History gram-CaHMB 1.5 vlsl-cmptl-je-min oral pwd pkt (Mehdi (with collagen)) sodium zirconium cyclosilicate 10 See Rx Instructions .Route .COMPLEX 10/16/23 10/16/23 Unknown History gram oral powder packet (Lokelma) trazodone 50 mg tablet 50 mg PO BEDTIME 10/16/23 10/16/23 Unknown History Allergies Allergy/AdvReac Type Severity Reaction Status Date / Time linezolid [From Zyvox] Allergy tendonitis Verified 10/16/23 04:10 vancomycin Allergy ADR-Itching Verified 10/16/23 04:10 ciprofloxacin [From Cipro] AdvReac Severe Tendonitis Verified 10/16/23 04:10 Current Medications Generic Name Dose Route Start Last Admin Trade Name Freq PRN Reason Stop Dose Admin Atorvastatin Calcium 40 mg 10/16/23 09:00 10/16/23 09:33 Atorvastatin 40 Mg Tablet PO 40 mg DAILY [place] Administration Clopidogrel Bisulfate 75 mg 10/16/23 09:00 10/16/23 09:33 Clopidogrel 75 Mg Tablet PO 75 mg DAILY [place] Administration Heparin Sodium/Sodium Chloride 25,000 unit in 500 mls @ 31.751 mls/hr 10/16/23 05:00 10/16/23 05:30 Heparin Drip IV 14 unit/kg/hr .[id number] [place] 31.75 mls/hr Administration 14 UNIT/KG/HR Piperacillin Sod/Tazobactam 50 mls @ 12.5 mls/hr 10/16/23 09:00 10/16/23 09:34 Sod 3.375 gm/ Sodium Chloride IV 12.5 mls/hr Q12H [place] Administration Vancomycin HCl 1,000 mg/ 250 mls @ 250 mls/hr 10/16/23 09:30 10/16/23 09:34 Sodium Chloride IV 250 mls/hr Q48H [place] Administration Insulin Human Lispro 0 unit 10/16/23 08:42 10/16/23 09:33 Insulin Lispro 100 Unit/1 Ml SUBCUT Not Given TIDWM [facility] Protocol Metoprolol Succinate 25 mg 10/16/23 09:00 10/16/23 09:33 Metoprolol Succinate Er (24 Hr) 25 Mg Tablet PO Not Given DAILY [facility] PFSH Acute 2 PFSH: Medical History Uremia Chronic osteomyelitis Type 2 diabetes mellitus 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, limited to breakdown of skin Chronic osteomyelitis of right foot Foot osteomyelitis, right Osteomyelitis Cellulitis Necrosis of surgical wound Foot osteomyelitis, left Hypovolemic shock Anemia of chronic disease Ulcer of sacral region, stage 1 Gas gangrene Acquired equinovarus deformity of left foot Pre-ulcerative calluses Xerosis of skin 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 Cellulitis Diabetes BMI 50.0-59.9, adult Diabetic foot ulcers Fracture, thoracic vertebra T7-T8 Osteomyelitis Non-pressure chronic ulcer of other part of right foot with necrosis of muscle Chronic venous insufficiency Chronic dysfunction of both eustachian tubes Lung nodule Hypoglycemia unawareness associated with type 2 diabetes mellitus Chronic ulcer of left foot with fat layer exposed Non-healing ulcer of right foot with fat layer exposed Vitamin D deficiency First degree heart block COPD (chronic obstructive pulmonary disease) Hypertension Urinary retention History of renal cell carcinoma Morbid obesity with BMI of 40.0-44.9, adult Cardiac arrest (~07/2020) when had covid Anemia Pneumonia due to 2019-nCoV (~07/2020) Renal cell carcinoma History bilateral renal cell carcinoma 2007 then recurrence on the contralateral side 2011. No recurrence for long-term follow-up with some suspicion on CT scan April 2020. CHF (congestive heart failure), NYHA class III Chronic respiratory failure with hypoxia and hypercapnia Obesity hypoventilation syndrome Metabolic alkalosis Accelerated hypertension Restrictive lung disease Obstructive sleep apnea non compliant with home bipap/cpap Fracture of fourth metatarsal bone of left foot Type 2 diabetes mellitus with diabetic polyneuropathy PVD (peripheral vascular disease) Fracture of fifth metatarsal bone of left foot Neuropathy Surgical History Status post below-knee amputation of left lower extremity History of left below knee amputation History of cataract surgery H/O wisdom tooth extraction Hx of lymph node excision H/O partial nephrectomy bilateral Family History Father , at age 65 Diabetes Cancer Metastatic prostate cancer to liver Mother , at age 72 Diabetes Grandfather Diabetes Cancer Other Anemia Hyperlipidemia Social History Smoking and tobacco/nicotine status: never used tobacco/nicotine Second hand smoke exposure: Yes Alcohol intake: current Alcohol intake frequency: holidays/special occasions only Substance/Drug Use: never Lives independently: Yes Household members: spouse Housing: House Marital status: service: No Current occupational status: retired Pets and animals: Yes Do you think of yourself as: Straight/Heterosexual Current gender identity: Male Vitals/I&O/Wt Last Vital Signs Temp 97.5 F L 10/16/23 04:01 Pulse 70 10/16/23 09:31 Resp 16 10/16/23 09:31 BP 83/48 10/16/23 07:39 Pulse Ox 94 10/16/23 09:31 O2 Del Method Nasal Cannula 10/16/23 09:31 O2 Flow Rate 3 10/16/23 09:31 Weight last 48 hrs Weight 250 lb Physical Exam 2 Narrative: GENERAL: Patient is alert, awake and oriented x3. [] NECK: No jugular vein distension. [] HEENT: No cyanosis. No icterus. No pallor. [] HEART: Regular S1 and S2. No murmur, rub or gallop. [] LUNGS: Diminished air entry CENTRAL NERVOUS SYSTEM: Grossly nonfocal. [] EXTREMITIES: Left BKA. Data 10/17/23 06:20 10/17/23 06:20 A&P Assessment and plan (1) Elevated troponin I level: (2) Shock: (3) Chest pain: Qualifiers: Chest pain type: unspecified Qualified Code(s): R07.9 - Chest pain, unspecified (4) CHF (congestive heart failure), NYHA class III: (5) Type 2 diabetes mellitus: (6) Ascites: Plan Patient has been having on and off severe chest pain symptoms consistent with unstable angina. We will proceed with coronary angiogram with percutaneous coronary intervention. He has multiple risk factors for CAD and had recent stenting of left main artery, LAD and left circumflex artery. We do not have records of it. He was not taking aspirin. Only on Plavix. Continue anticoagulation. NPO past midnight. ECHO pending Thank you for involving us with care of this patient. We will continue to follow. Please call with questions. Consult Attestations 2 Medical Necessity Statement: Care expected to cross 2 midnights. Coding Level of Care Code Acute Code for g Fwd Diagnoses Elevated troponin I level R79.89 Shock R57.9 Chest pain R07.9 Chest pain type: unspecified Chronic diastolic congestive heart failure, NYHA class 3 I50.9 Type 2 diabetes mellitus E11.9 Ascites R18.8
[2023-10-16 11:46] LABS: Troponin 5 6HR Delta -52.7 ng/L (0-12)
[2023-10-16 11:50] LABS: Troponin 5 6HR 381.3 ng/L (0-15)
[2023-10-16] MEDS: sevelamer 800 mg Tablet 4000 MG PO (13:57)
[2023-10-16 15:22] LABS: Partial Thromboplastin Time 40.2 SECONDS (23.9-36.7)
--- NOTE | 2023-10-16 17:00 | PC.NURSE ---
Pt began calling out for help when he continued raising the HOB pulling on his central line. This nurse lowered HOB and untangled IV lines. Central line assessed. Asymptomatic. Pulls blood and flushes. Educated pt regarding button options and advised to lower if it begins to pull again. Pt stated he froze and didn't know what to do.
[2023-10-16 17:29] LABS: Glucose Point of Care 123 mg/dL (70-110)
[2023-10-16 17:29] LABS: Glucose Point of Care 179 mg/dL (70-110)
--- NOTE | 2023-10-16 17:30 | PC.NURSE ---
Pt repositioned self. Tolerated well. Pt educated on importance of turning at least q 2 hours to avoid skin breakdown. Indicated understanding.
--- NOTE | 2023-10-16 17:38 | P.MISC_ITS ---
Miscellaneous Note Purpose of Documentation: Overnight labs and H&P reviewed. Clinical impression that of NSTEMI. Down trending troponin at 6 hours. Plan for possible angiogram tomorrow. Consult nephrology for dialysis. Levophed requirement down at 2.5 at the time of assessment. Patient is awake alert oriented, denies any chest pain.
--- NOTE | 2023-10-16 17:53 | ECG_ITS ---
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 Measurements Intervals [place] Rate: 83 P: 39 VA: 202 QRS: 178 QRSD: 93 T: 43 QT: 395 QTc: 465 Interpretive Statements SINUS RHYTHM PATTERN CONSISTENT WITH PULMONARY DISEASE INCOMPLETE RIGHT BUNDLE BRANCH BLOCK [90+ ms QRS DURATION, TERMINAL R IN V1/V2, 40+ ms S IN I/aVL/V4/V5/V6] POSSIBLE RIGHT VENTRICULAR HYPERTROPHY [SOME/ALL OF: PROMINENT R IN V1, LATE TRANSITION, RAD, JEROME, SSS] MINIMAL ST DEPRESSION [0.025+ mV ST DEPRESSION] Compared to ECG 10/16/2023 09:17:22 ST (T wave) deviation now present Sinus arrhythmia no longer present Electronically Signed On 10-16-2023 21:29:26 CDT by Erik Arguelles M.D. [id number]
[2023-10-16] MEDS: heparin drip 25,000 UNIT/500 ML PREMIX 33.7999999999999972 UNIT IV (18:09)
--- NOTE | 2023-10-16 18:15 | PC.NURSE ---
Pt began screaming and moaning while complaining of generalized pain all over. When asked to describe said pain, pt stated, maybe chest pain. SBP now 70's. Levophed increased per order. Dr Ascencio notified. Orders received.
[2023-10-16] MEDS: morphine 4 mg/mL SDV 1 mL 2 MG IVP ×2 (18:19→22:27)
[2023-10-16] MEDS: insulin lispro 100 unit/1 mL SUBCUT (19:09)
[2023-10-16 19:31] LABS: Troponin(5th) Baseline 444 ng/L (0-15)
[2023-10-16] MEDS: epoetin alfa 1000 Unit/0.05 mL (ESRD) 20000 UNIT SUBCUT (19:36)
--- NOTE | 2023-10-16 20:19 | ECG_ITS ---
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 Measurements Intervals [place] Rate: 80 P: 70 SD: 203 QRS: 150 QRSD: 111 T: 43 QT: 398 QTc: 461 Interpretive Statements SINUS RHYTHM RIGHT AXIS DEVIATION [QRS AXIS > 100] LOW QRS VOLTAGE IN PRECORDIAL LEADS [QRS DEFLECTION < 1.0 mV IN CHEST LEADS] RIGHT BUNDLE BRANCH BLOCK [120+ ms QRS DURATION, UPRIGHT V1, 40+ ms S IN I/aVL/V4/V5/V6] ANTEROSEPTAL MYOCARDIAL INFARCTION , OF INDETERMINATE AGE [40+ ms Q WAVE IN V1-V4] Compared to ECG 10/16/2023 17:59:32 Right-axis deviation now present Low QRS voltage now present Right bundle-branch block now present Myocardial infarct finding now present Incomplete right bundle-branch block no longer present ST (T wave) deviation no longer present Electronically Signed On 10-16-2023 21:37:16 CDT by Erik Arguelles M.D. [id number]
[2023-10-16] MEDS: norepinephrine 4 MG/250 ML BAG 37.5 MG IV (20:52)
[2023-10-16 21:29] LABS: Troponin 5 2HR Delta 4.1 ABS# (0-10)
[2023-10-16 21:31] LABS: Troponin 5 2HR 448.1 ng/L (0-15)
[2023-10-16 22:21] LABS: Glucose Point of Care 149 mg/dL (70-110)
[2023-10-16] MEDS: ondansetron 2 mg/ML SDV 2 mL 4 MG IVP (22:27)
[2023-10-16 23:39] LABS: Partial Thromboplastin Time 40.4 SECONDS (23.9-36.7)
[2023-10-17] VITALS (20 sets, daily range): BP systolic 88–140; BP diastolic 54–86; PULSE 70–93; RESP 9–19; TEMP 35.7–36.6; O2SAT 76–100
[2023-10-17] MEDS: heparin 5,000 unit/mL INJ 1 mL IV (00:14)
--- NOTE | 2023-10-17 00:36 | ECG_ITS ---
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 Measurements Intervals [place] Rate: 87 P: 32 WI: 193 QRS: 194 QRSD: 100 T: 16 QT: 379 QTc: 457 Interpretive Statements SINUS RHYTHM INDETERMINATE AXIS LOW QRS VOLTAGE IN PRECORDIAL LEADS [QRS DEFLECTION < 1.0 mV IN CHEST LEADS] PATTERN CONSISTENT WITH PULMONARY DISEASE INCOMPLETE RIGHT BUNDLE BRANCH BLOCK [90+ ms QRS DURATION, TERMINAL R IN V1/V2, 40+ ms S IN I/aVL/V4/V5/V6] SEPTAL MYOCARDIAL INFARCTION , OF INDETERMINATE AGE [40+ ms Q WAVE IN V1/V2] Compared to ECG 10/16/2023 20:03:09 Indeterminate axis now present Incomplete right bundle-branch block now present Right-axis deviation no longer present Right bundle-branch block no longer present Myocardial infarct finding still present Electronically Signed On 10-17-2023 17:00:00 CDT by Erik Arguelles M.D. [id number]
[2023-10-17 01:14] LABS: Troponin 5 6HR Delta 4.4 ng/L (0-12)
[2023-10-17 01:18] LABS: Troponin 5 6HR 448.4 ng/L (0-15)
[2023-10-17] MEDS: diphenhydrAMINE 25 mg Capsule PO (02:11)
[2023-10-17] MEDS: norepinephrine 4 MG/250 ML BAG 22.5 MG IV (04:02)
--- NOTE | 2023-10-17 06:25 | XACV_ITS ---
Exam Room: [facility] Ht: 180 cm Wt: 125 kg BSA: 2.55 m2 Gender: Male : 1970 Any Known Allergies: Other Exam Priority: Routine Procedure(s): Procedure Description: Diagnostic procedure Procedure Description: PCI procedure Procedure Description: Coronary IVUS Procedure Description: Drug Eluting Coronary Stent Procedure Description: PTCA Procedure Description: Miscellaneous Procedure Description: ACT Procedure Description: Coronary Angiography Diagnostic Cath Status: Urgent Diagnostic Findings * Left Main has patent prior stent. Has bifurcation stenting and in distal vessel stent has some in-stent restenosis. * Left Anterior Descending has patent prior stent in the proximal segment. Post stent there is another moderate 50-60% stenosis. * Ostial left circumflex artery, bifurcation stent has severe ISR with 95-99% stenosis. OM1 is a medium to large sized vessel with severe 80% stenosis.. * Right Coronary Artery has diffuse moderate disease. * Coronary angiography shows right dominance. PCI Status: Urgent PCI Indication: Other Interventional Findings * Proximal Circumflex: 95% instent restenosis treated with a MDT NC EUPHORA RX [id number] BALLOON, and MDT NC EUPHORA RX [id number] BALLOON. 0% residual stenosis, HEATHER: 3 flow. * PROCEDURE DETAIL: We need a left main artery with XB 3.5 guide catheter. IV heparin was administered to maintain anticoagulation. 0.014 run-through guidewire was used to cross critical ISR of ostial left circumflex artery and severe stenosis of OM branch and was put in distal vessel. We first predilated ostial circumflex ISR with 3.0 x 12 mm NC balloon. I was the vessel was performed to confirm prior stent was present as imaging quality was not good. We then predilated the severe OM1 stenosis with 2.75 x 20 mm semicompliant balloon. This was followed by placement of 2.75 x 18 mm resolute [place] drug-eluting stent. We then dilated left main into ostial circumflex artery stent 1 more time with a 3.5 x 20 mm resolute [place] drug-eluting stent at high pressure. At this time final angiogram was performed that showed excellent stent expansion, no residual stenosis and HEATHER-3 flow. Guidewire and guide catheter were removed. Patient left the Structures Engineer in a stable condition.. * First Obtuse Marginal Branch Segment: 70% stenosis treated with a AB TREK 2.75X20 RX BALLOON, and MDT R MILTON 2.75X18 DAVE. 0% residual stenosis, HEATHER: 3 flow. Conclusions 1. Critical in-stent restenosis of ostial left circumflex artery stent. 2. S/p successful revascularization with balloon angioplasty. Severe OM1 stenosis s/p successful revascularization with 1 stent.. 3. Proximal Circumflex was treated with a Balloon, and Balloon. 4. First Obtuse Marginal Branch Segment was treated with a Balloon, and Drug Eluting Stent. Recommendations * Dual antiplatelet therapy with aspirin and plavix for at least 1 year. * High intensity statin therapy. * Outpatient cardiology follow up in 4 weeks. Interventional RX Recommendation: PCI w/o planned CABG Diagnostic RX Recommendation: PCI w/o planned CABG Anticoagulation: Heparin Pressures Phase:Rest AO : 111 / 83 ( 94 ) @ 10:38:00 AM 94 / 80 ( 87 ) @ 10:40:00 AM 72 / 62 ( 66 ) @ 10:58:00 AM 88 / 66 ( 77 ) @ 11:00:00 AM 61 / 49 ( 54 ) @ 11:13:00 AM 84 / 68 ( 72 ) @ 11:17:00 AM Clinical Evaluation EBL: 5mL-10mL Procedural Details Current Diagnosis : NSTEMI. Pre-Procedure Time Out. Identified patient by full name and date of as verbalized by the patient/guarantor. Does the consent match the physician's order: Yes. Accurate & Complete Informed Consent: Yes. Inpatient/Outpatient History & Physical on Chart: Yes. If H&P is completed, is and addenduem needed: No; If yes, is the addendum complete: N/A. Visualize and Verify Site with Patient/Guarantor: N/A. Relevant Radiology Images available: Yes. Pre-op teaching completed and patient verbalized understanding. The risks, benefits, and alternatives of sedation and/or procedure were discussed by physician. The patient agrees to continue. Procedure started. [facility] Clinical Fraility Score: 6: Moderately Frail. Structures Engineer Indications: ACS > 24 hours. Chest Pain Symptom Assessment: Typical Angina Symptoms. Current diagnosis: NSTEMI. PERRLA. Strong, equal hand middle stitcher bilaterally. Lungs clear x 5 lobes. IV Site on Arrival: Central Line. IV Fluids: 0.9% NaCl at KVO. 0 mL infused prior to equipment operator/laborer/supervisor. Oxygen started at 2liters/min via nasal canula. bilateral groins was prepped with chloroprep then draped in the usual sterile fashion. Physician arrived. Baseline sample Acquired. HR: 81 BPM. Physician scrubbed in. Immediate Pre-Procedure Time Out. Correct Patient: Yes; Correct Procedure: Yes; Correct Site: Yes; Correct Patient Position: Yes; Correct Supplies: Yes; Dried Flammable Prep: Yes; Blood Products Available: N/A;. Ultrasound being used to obtain access. Lidocaine 1% infiltrated to the right groin. Venous access obtained with a micropuncture set. A Right femoral angiogram was performed. Patient placed on an oxymask at 5liters. Arterial access obtained with micropuncture set. The wire unable to advance. Wire and needle removed. Manual pressure help on access site. Lidocaine 1% infiltrated to the left groin. Arterial access obtained with micropuncture set. A 5 [place] JL4 catheter in over wire. Multiple views taken of left coronary artery. Anesthesia called to assist with sedation. Catheter removed over the standard wire. A 5 [place] JR4 catheter in over wire. Multiple views taken of right coronary artery. Catheter removed over the exchange wire. Anesthesia in room. Inventory is CRD 6 FR XB 3.5 GUIDE. Catheter removed over the wire. 6 [place] XB 3.5 guide catheter was inserted over the wire. ACT drawn. Results 180 seconds. Therapeutic limits - pre-heparin administration 90-150 seconds and monitoring heparin during a vascular procedure >250 seconds. Anesthesia taking over managment of sedation from this point in the case forward. See anesthesia record for detail. Guide seated in the LCS. Angiography performed. Runthrough guidewire was advanced through the guide catheter to lesion in the prox Circ. Distal wire parked in the OM1. Guidewire advanced across lesion. Inflation number : 1 A MDT NC EUPHORA RX [id number] BALLOON was prepped and advanced across the Prox CX , then inflated to 12 CORRIE for 0:16 seconds. Inflation number: 2 The MDT NC EUPHORA RX [id number] BALLOON was reinflated across the Prox CX, to 14 CORRIE for 0:14 seconds. Results checked. Inflation number: 3 The MDT NC EUPHORA RX [id number] BALLOON was reinflated across the Prox CX, to 16 CORRIE for 0:15 seconds. Balloon out over the wire. Results checked. IVUS catheter inserted. IVUS run of proximal circumflex and left main performed. IVUS catheter out. Inflation number : 1 A AB TREK 2.75X20 RX BALLOON was prepped and advanced across the 1st Ob Hannah , then inflated to 10 CORRIE for 0:14 seconds. Results checked. Inflation number: 2 The AB TREK 2.75X20 RX BALLOON was reinflated across the 1st Ob Hannah, to 10 CORRIE for 0:13 seconds. Results checked. Balloon out. Stent inserted and removed intact. No cross past Left Main stent. Inflation Number : 3 A MDT R MILTON 2.75X18 DAVE -Lot Number# [id number] was prepped and advanced across the 1st Ob Hannah. The stent was deployed at 12 CORRIE for 0:18 seconds. EXP 12/23/25. Results checked. Stent balloon out over the wire. ACT drawn. Results Out of range hi seconds. Therapeutic limits - pre-heparin administration 90-150 seconds and monitoring heparin during a vascular procedure >250 seconds. Inflation number : 4 A MDT NC EUPHORA RX [id number] BALLOON was prepped and advanced across the Prox CX , then inflated to 14 CORRIE for 0:14 seconds. Balloon out. Results checked. IVUS catheter inserted. IVUS run on om/ prox circ and left main performed. IVUS catheter out. Results checked. Runthrough wire removed. Guide catheter removed. ACT drawn. Results 289 seconds. Therapeutic limits - pre-heparin administration 90-150 seconds and monitoring heparin during a vascular procedure >250 seconds. Physician review of films. Hand injection of the left femoral artery to assess for closure device placement. Physician scrubbed out. A Suture was successful obtaining hemostatsis at the Right Femoral vein insertion site. A Suture was successful obtaining hemostatsis at the Left Femoral artery insertion site. Sheath(s) sutured into position with 2-0 silk and sterile 4x4's and Op-site applied over the site. No oozing or signs and symptoms of hematoma noted. Arterial sheath flushed and connected to tranducer and pressure bag with heparinized saline. Venous sheath flushed and connected to 0.9% NaCl with extension tubing. Post Procedure: Pulses reassessed and unchanged. PERRLA. Strong, equal hand middle stitcher bilaterally. No VTE prophylaxis required. Medication wate: Fentanyl- 75 mcg Heparin- 1000 units. Total IV fluids: 0 mL. Fluoro: 13:06. Contrast type used: Omnipaque 300 mgI/mL, 500 mL bottle. [id number]. Post-op diagnosis: SEVERE INSTENT RESTENOSIS OF PROXIMAL CIRCUMFLEX AND SEVERE STENOS OF OM1; STATUS POST DAVE TO OM 1 AND BALLOON ANGIOGPLASTY OF PROXIMAL CIRCUMFLEX. Complications: NONE. Estimated blood loss: 5mL-10mL. Responsiveness - Normal response to verbal stimuli; alert and oriented, PERRLA. Airway - Unaffected, no intervention required; spontaneous ventilation. Circulation: W/N/L, pulses unchanged. Nausea/Vomiting: No. Procedure completed. Vital chart was stopped. Procedure started. Access Site Site: Right Femoral vein Sheath Size: 6 Fr Hemostasis Method: Suture Hemostasis Success: Successful Site: Left Femoral artery Sheath Size: 6 Fr Hemostasis Method: Suture Hemostasis Success: Successful Procedure Medications Start: 9:10 AM Stop: 9:10 AM Medication: Versed Amount: 1 mg Route: I.V. Start: 9:14 AM Stop: 9:14 AM Medication: Benadryl Amount: 25 mg Route: I.V. Start: 9:39 AM Stop: 9:39 AM Medication: Versed Amount: 1 mg Route: I.V. Start: 9:51 AM Stop: 9:51 AM Medication: Fentanyl Amount: 25 mcg Route: I.V. Start: 9:52 AM Stop: 9:52 AM Medication: Heparin Amount: 8000 units Route: I.V. Start: 10:36 AM Stop: 10:36 AM Medication: Aggrastat 12.5 mg/250 mL Amount: 62.5 ml Start: 10:36 AM Stop: 10:36 AM Medication: Aggrastat 12.5 mg/250 mL Amount: 22.5 ml/hr Route: I.VVirginie lee I, the attending physician, have reviewed and verified all procedure medications. Yes, all medications given per verbal order History/Risk Factors Hypertension: Yes Dyslipidemia: No Peripheral Arterial Disease (PAD): Yes Myocardial Infarction (ID): No Obesity: No Renal Disease: No Prior Interventions PCI: Yes CABG: No Valve Surgery: No Report Signatures Finalized by Erik Arguelles MD on 10/27/2023 10:44 AM
[2023-10-17 06:39] LABS: Basophils % 0.5 %; Eosinophils # 0.3 10^3/uL (0.0-0.8); Eosinophils % 4.4 %; Hematocrit 35.8 % (37-53); Lymphocytes # 0.5 10^3/uL (0.8-4.8); Lymphocytes % 7.8 %; Mean Corpuscular HGB Conc 29.3 g/dL (30-55); Mean Corpuscular Hemoglobin 27.4 pg (27-33); Mean Corpuscular Volume 93.5 fl (82-101); Mean Platelet Volume 10.1 fL (7.4-10.4); Monocytes # 0.5 10^3/uL (0.2-0.9); Monocytes % 8.1 %; Neutrophils # 5.05 10^3/uL (1.8-7.7); Neutrophils % 78.9 %; Nucleated Red Blood Cells % 0 %; Platelet Count 127 10^3/cmm (157-399); Red Blood Count 3.83 10^6/uL (3.85-5.65); Red Cell Distribution Width 17.5 % (12.1-15.1)
[2023-10-17 07:02] LABS: Partial Thromboplastin Time 40.1 SECONDS (23.9-36.7)
[2023-10-17 07:06] LABS: Anion Gap 18.6 (5-19); Calcium 7.9 mg/dL (8.5-10.5); Carbon Dioxide 26 mmol/L (22-29); Chloride 97 mmol/L (98-107); Glomerular Filtration Rate 9.5 mL/min (90-130); Glucose 107 mg/dL (65-115); Magnesium 1.9 mg/dL (1.7-2.3); Osmolality Calculated 310 mOsm/kg (285-295); Potassium 5.6 mmol/L (3.5-5.1); Sodium 136 mmol/L (136-145)
[2023-10-17 07:11] LABS: Blood Urea Nitrogen 89 mg/dL (6-20); Creatinine Clr Calc Pharmacy 19.0705
[2023-10-17 07:24] LABS: Glucose Point of Care 111 mg/dL (70-110)
--- NOTE | 2023-10-17 09:08 | W.PM.OPSUD ---
Surgery/Procedure H&P Update DATE OF PROCEDURE: October 17, 2023 DATE H&P PERFORMED: 10/16/23 H&P UPDATE INFORMATION: I have reviewed H&P completed within last 30 days, I have examined patient prior to procedure and No changes to prior documentation PREOP DIAGNOSIS: Unstable angina PRIMARY INDICATION FOR PROCEDURE: Unstable angina PLANNED PROCEDURE: Left heart cath with possible percutaneous coronary intervention PATIENT REASSESSED PRIOR TO SEDATION, WITH NO CHANGE NOTED: Yes PHYSICAL EXAM: alert, oriented x 3, clear to auscultation bilaterally and regular rate & rhythm AIRWAY EVAL/ANESTHESIA PLAN: normal airway, ASA IV, Local Anesthesia, Risks, benefits & alternatives of sedation and/or procedure discussed and Patient agrees to continue as planned ADDITIONAL INFORMATION: Moderate sedation
--- NOTE | 2023-10-17 09:10 | P.PN_ITS ---
Subjective 2 Subjective: Patient had critical ostial left circumflex artery instent restenosis and severe stenosis of OM 1. Had PCI of OM 1 and balloon angioplasty of ostial LCx. No chest pain. Vitals/I&O/Wt Last Vital Signs Temp 97.3 F L 10/16/23 22:41 Pulse 70 10/17/23 07:43 Resp 16 10/17/23 07:43 BP 122/105 10/16/23 22:41 Pulse Ox 93 10/17/23 07:43 O2 Del Method Nasal Cannula 10/17/23 07:43 O2 Flow Rate 3 10/17/23 07:43 FiO2 40 10/17/23 04:58 10/16/23 10/17/23 10/17/23 22:59 06:59 14:59 Intake Total 2767.363 / 2939.735 451.555 / 3391.290 Output Total 3438 / 3438 0 / 3438 Balance -670.637 / -498.265 451.555 / -46.710 Weight last 48 hrs Weight 275 lb 1.43 oz Weight 270 lb 1.06 oz Weight 273 lb 5.971 oz Weight 250 lb Physical Exam 2 Narrative: GENERAL: Patient is alert, awake and oriented x3. [] NECK: No jugular vein distension. [] HEENT: No cyanosis. No icterus. No pallor. [] HEART: Regular S1 and S2. No murmur, rub or gallop. [] LUNGS: Diminished air entry CENTRAL NERVOUS SYSTEM: Grossly nonfocal. [] EXTREMITIES: Left BKA. Data 10/18/23 05:50 10/18/23 05:50 A&P Assessment and plan (1) Elevated troponin I level: (2) Shock: (3) Chest pain: Qualifiers: Chest pain type: unspecified Qualified Code(s): R07.9 - Chest pain, unspecified (4) CHF (congestive heart failure), NYHA class III: (5) Type 2 diabetes mellitus: (6) Ascites: Plan Patient had balloon angioplasty of ostial LCx and PCI of OM. Dual antiplatelet therapy with aspirin and plavix. Can hold anticoagulation ECHO is showing moderate to severe aortic stenosis. Will need close follow up on that. Thank you for involving us with care of this patient. We will continue to follow. Please call with questions. Attestations 2 Medical Necessity Statement*: Care expected to cross 2 midnights. Coding Level of Care Code Acute Code for Chg Fwd Diagnoses Elevated troponin I level R79.89 Shock R57.9 Chest pain R07.9 Chest pain type: unspecified Chronic diastolic congestive heart failure, NYHA class 3 I50.9 Type 2 diabetes mellitus E11.9 Ascites R18.8
--- NOTE | 2023-10-17 09:25 | PC.NURSE ---
patient left approximately 0850 to laboratory tech
--- NOTE | 2023-10-17 11:10 | PC.NURSE ---
Arrived from golf course laborer, t.o. from Dr. Arguelles for 300 mg plavix and 325 aspirn once patient is awake
--- NOTE | 2023-10-17 11:35 | P.PN_ITS ---
Subjective 2 Subjective: s/p LHC and stent Medications: Reviewed: Yes Vitals/I&O/Wt Last Vital Signs Temp 97.3 F L 10/16/23 22:41 Pulse 70 10/17/23 07:43 Resp 16 10/17/23 07:43 BP 122/105 10/16/23 22:41 Pulse Ox 93 10/17/23 07:43 O2 Del Method Nasal Cannula 10/17/23 07:43 O2 Flow Rate 3 10/17/23 07:43 FiO2 40 10/17/23 04:58 10/16/23 10/17/23 10/17/23 22:59 06:59 14:59 Intake Total 2767.363 / 2939.735 451.555 / 3391.290 Output Total 3438 / 3438 0 / 3438 Balance -670.637 / -498.265 451.555 / -46.710 Weight last 48 hrs Weight 124.778 kg Weight 122.5 kg Weight 124 kg Weight 113.398 kg Physical Exam 2 Narrative: awake ,a lert heent s1s2 rrr per report Lungs clear per report no edema Data 10/17/23 06:20 10/17/23 06:20 A&P Assessment and plan (1) End-stage renal disease on hemodialysis: Plan 1. End-stage renal disease: On TTS schedule as outpatient, s/p HD yesterday, s/p LHC today and has hyperkalemia , HD again today 2. Anemia: Hemoglobin 10.5 , monitor on ALBERTO with HD 3. History of hypertension, resume home meds 4. NSTEMI, management per cardiology. Patient with prior stents- s/p LHC and stent to LAD 5. Liver failure with recurrent ascites and paracentesis Patient evaluated using audiovisual cart. Time spent 20 minutes Attestations 2 Medical Necessity Statement*: PER MEDICINE Coding Level of Care Code Acute Code for Chg Fwd Diagnoses End-stage renal disease on hemodialysis N18.6; Z99.2
[2023-10-17 11:37] LABS: Glucose Point of Care 111 mg/dL (70-110)
[2023-10-17] MEDS: clopidogrel 300 mg Tablet PO (11:39)
[2023-10-17] MEDS: epoetin alfa 1000 Unit/0.05 mL (ESRD) 20000 UNIT IVP (12:16)
[2023-10-17] MEDS: aspirin 325 mg Tablet PO (12:19)
[2023-10-17] MEDS: sevelamer 800 mg Tablet 4000 MG PO ×2 (12:19→17:09)
[2023-10-17] MEDS: piperacillin-tazobactam 3.375 GM in sodium chloride 0.9% (plus) 50 ML IV ×2 (12:20→21:24)
[2023-10-17] MEDS: heparin, porcine 1,000 unit/mL INJ 10 mL 1000 UNIT IV (13:12)
[2023-10-17 14:02] LABS: Partial Thromboplastin Time 59.2 SECONDS (23.9-36.7)
[2023-10-17] MEDS: norepinephrine 4 MG/250 ML BAG 37.5 MG IV (14:58)
--- NOTE | 2023-10-17 15:47 | PM.PN ---
Subjective Subjective: Status post angiogram with stent placement this morning. Currently chest pain-free. After dialysis needed to be increased on his Levophed requirement to 10 mics, previously had been able to be titrated down to 2 mics. Medications: Reviewed: Yes Vitals/I&O/Wt Last Vital Signs Temp 96.3 F L 10/17/23 13:23 Pulse 81 10/17/23 13:23 Resp 14 10/17/23 13:23 BP 92/65 10/17/23 13:23 Pulse Ox 96 10/17/23 12:00 O2 Del Method Nasal Cannula 10/17/23 07:43 O2 Flow Rate 3 10/17/23 07:43 FiO2 40 10/17/23 04:58 10/17/23 10/17/23 10/17/23 06:59 14:59 22:59 Intake Total 451.555 / 3391.290 450.00 / 450.00 Output Total 0 / 3438 Balance 451.555 / -46.710 450.00 / 450.00 Weight last 48 hrs Weight 124.778 kg Weight 122.5 kg Weight 124 kg Weight 113.398 kg Physical Exam Narrative: General: No acute distress, AO x3 for HEENT: PERRLA, pupils bilaterally equal and reactive, pallors not present Chest: Normal vesicular breath sounds, no added sounds, equal good air entry bilaterally CVS: S1-S2 regular, no murmurs, no tachycardia, no gallops, no rubs Abdomen: Soft, nontender, no organomegaly, bowel sounds present Neuro: No focal deficits, no facial deformity, AO x3, power 5/5 in all limbs Data 10/17/23 06:20 10/17/23 06:20 A&P Assessment and plan (1) Noncompliance: (2) Acute non-ST elevation myocardial infarction (NSTEMI): (3) Left main coronary artery disease: (4) Shock: (5) 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, limited to breakdown of skin: (6) Ascites: (7) End-stage renal disease on hemodialysis: (8) Anemia: (9) Acute and chronic respiratory failure with hypoxia: (10) Anasarca: Plan Non-STEMI No active chest pain Improved with nitroglycerin Troponin significantly elevated Patient is only taking Plavix I do not see any aspirin, he is not sure why he is only taking Plavix I do not see any anticoagulating agent as well in his medication Cardiology consulted In May patient was transferred to [facility] and from there he was transferred to [place] stating he got 3 stents placed in LAD Acute reduced ejection fraction heart failure exacerbation Not a candidate for diuresis at this time secondary to low blood pressure End-stage renal disease Sunday Hyperkalemia, will need dialysis today Liver failure requiring paracentesis for abdominal ascites recent paracentesis was done on Saturday 10/14 No acute exacerbation Diabetic, left leg amputee Right leg concern for osteomyelitis Purulent cellulitis Will request x-rays History of chronic osteomyelitis as well Follows up with wound care Anemia of chronic disease hemoglobin 9.7 Cardiogenic shock Will start Levophed for now Central line was placed in the ER Admit to ICU Plan for today October 17, 2023. Patient is status post coronary angiogram this morning which showed critical left circumflex ostial in-stent restenosis and severe stenosis of OM1. He had PCI of OM1 with 1 stent placement and balloon angioplasty of the ostial LCx stent. He is chest pain-free postprocedure. He had been consistently titrated down on Levophed drip, however postdialysis he became hypotensive and needed to have increased Rester requirement. Add midodrine to avoid post dialysis hypotension. Continued attempts at weaning of pressor today. Echocardiogram showing EF of 50 to 55%, RV dilated and moderately to severely hypokinetic. There is biatrial dilatation with moderate to severe aortic stenosis. And mild pulmonary hypertension. Attestations Medical Necessity Statement*: Continued ICU care as noted above. 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
[2023-10-17 16:55] LABS: Glucose Point of Care 171 mg/dL (70-110)
[2023-10-17] MEDS: insulin lispro 100 unit/1 mL SUBCUT (17:08)
--- NOTE | 2023-10-17 18:54 | PC.NURSE ---
Right groin sheath pulled approximately 1730. tolerated dialysis well. recovered from engineering laboratory technician well. uneventful shift
[2023-10-17] MEDS: midodrine 5 mg TABLET 10 MG PO (21:24)
[2023-10-17] MEDS: trazodone 50 mg Tablet PO (21:24)
--- NOTE | 2023-10-17 23:17 | PC.NURSE ---
No order to pull sheath. Dr Arguelles called to verify. Telephone confirmation to pull femoral sheath given. Order received by Dr Arguelles no ptt necessary
[2023-10-17] MEDS: morphine 4 mg/mL SDV 1 mL 2 MG IVP (23:33)
[2023-10-18] VITALS (13 sets, daily range): BP systolic 72–116; BP diastolic 60–77; PULSE 86–96; RESP 16–20; TEMP 35.6–37.2; O2SAT 87–99
--- NOTE | 2023-10-18 00:54 | PC.NURSE ---
Femoral Sheath pulled at 2330. Pressure held for 25 minutes, no hematoma noted. All vitals stable, catheter intact upon removal.
[2023-10-18] MEDS: venlafaxine ER (24HR) 75 mg Capsule PO (05:28)
[2023-10-18 06:06] LABS: Basophils % 0.4 %; Eosinophils # 0.3 10^3/uL (0.0-0.8); Eosinophils % 6.5 %; Hematocrit 31.9 % (37-53); Lymphocytes # 0.3 10^3/uL (0.8-4.8); Mean Corpuscular HGB Conc 29.2 g/dL (30-55); Mean Corpuscular Hemoglobin 27.3 pg (27-33); Mean Corpuscular Volume 93.5 fl (82-101); Monocytes # 0.4 10^3/uL (0.2-0.9); Monocytes % 8.7 %; Neutrophils # 3.54 10^3/uL (1.8-7.7); Nucleated Red Blood Cells % 0 %; Platelet Count 128 10^3/cmm (157-399); Red Blood Count 3.41 10^6/uL (3.85-5.65); Red Cell Distribution Width 17.6 % (12.1-15.1)
[2023-10-18 06:37] LABS: Alanine Aminotransferase 15 U/L (0-41); Alkaline Phosphatase 71 U/L (40-130); Anion Gap 19.1 (5-19); Aspartate Amino Transferase 11 U/L (0-40); Blood Urea Nitrogen 74 mg/dL (6-20); Calcium 7.7 mg/dL (8.5-10.5); Carbon Dioxide 27 mmol/L (22-29); Chloride 96 mmol/L (98-107); Creatinine Clr Calc Pharmacy 19.1642; Globulin 3.5 g/dL (1.3-4.6); Glomerular Filtration Rate 9.7 mL/min (90-130); Glucose 124 mg/dL (65-115); Osmolality Calculated 307 mOsm/kg (285-295); Potassium 5.1 mmol/L (3.5-5.1); Sodium 137 mmol/L (136-145); Total Bilirubin 0.4 mg/dL (0.15-1.2); Total Protein 6.5 g/dL (6.6-8.7)
--- NOTE | 2023-10-18 08:15 | P.PN_ITS ---
Subjective 2 Subjective: Patient doing well. No chest pain. Vitals/I&O/Wt Last Vital Signs Temp 97.9 F 10/18/23 04:00 Pulse 92 10/18/23 06:00 Resp 12 10/17/23 20:00 BP 100/69 10/18/23 05:00 Pulse Ox 99 10/18/23 05:00 O2 Del Method Nasal Cannula 10/17/23 07:43 O2 Flow Rate 3 10/17/23 07:43 FiO2 40 10/17/23 04:58 10/17/23 10/18/23 10/18/23 22:59 06:59 14:59 Intake Total 698 / 1148.00 124.75 / 1272.75 Output Total 2800 / 2800 Balance -2102 / -1652.00 124.75 / -1527.25 Weight last 48 hrs Weight 269 lb Weight 271 lb 2.697 oz Weight 275 lb 1.43 oz Weight 270 lb 1.06 oz Weight 273 lb 5.971 oz Physical Exam 2 Narrative: GENERAL: Patient is alert, awake and oriented x3. [] NECK: No jugular vein distension. [] HEENT: No cyanosis. No icterus. No pallor. [] HEART: Regular S1 and S2. Grade 3/6 systolic murmur LUNGS: Diminished air entry CENTRAL NERVOUS SYSTEM: Grossly nonfocal. [] EXTREMITIES: Left BKA. Data 10/18/23 05:50 10/18/23 05:50 A&P Assessment and plan (1) Elevated troponin I level: (2) Shock: (3) Chest pain: Qualifiers: Chest pain type: unspecified Qualified Code(s): R07.9 - Chest pain, unspecified (4) CHF (congestive heart failure), NYHA class III: (5) Type 2 diabetes mellitus: (6) Ascites: Plan Patient had balloon angioplasty of ostial LCx and PCI of OM. Dual antiplatelet therapy with aspirin and plavix. Patient did not have any further chest pain episodes. ECHO is showing moderate to severe aortic stenosis. Will need close follow up on that. Thank you for involving us with care of this patient. Patient is stable to be discharged from cardiac standpoint. Please call with questions. Attestations 2 Medical Necessity Statement*: Care expected to cross 2 midnights. Coding Level of Care Code Acute Code for Chg Fwd Diagnoses Elevated troponin I level R79.89 Shock R57.9 Chest pain R07.9 Chest pain type: unspecified Chronic diastolic congestive heart failure, NYHA class 3 I50.9 Type 2 diabetes mellitus E11.9 Ascites R18.8
[2023-10-18] MEDS: midodrine 5 mg TABLET 10 MG PO ×2 (09:19→17:27)
[2023-10-18] MEDS: aspirin 81 mg EC Tablet PO (09:19)
[2023-10-18] MEDS: sevelamer 800 mg Tablet 4000 MG PO ×3 (09:19→17:27)
[2023-10-18] MEDS: vancomycin 1,000 MG in sodium chloride 0.9% 250 ML 250 MG IV (09:20)
[2023-10-18] MEDS: clopidogrel 75 mg Tablet PO (09:20)
[2023-10-18] MEDS: metoprolol succinate ER (24 HR) 25 mg Tablet PO (09:20)
[2023-10-18] MEDS: atorvastatin 40 mg Tablet PO (09:20)
[2023-10-18] MEDS: piperacillin-tazobactam 3.375 GM in sodium chloride 0.9% (plus) 50 ML IV (09:21)
[2023-10-18] MEDS: morphine 4 mg/mL SDV 1 mL 2 MG IVP (09:32)
[2023-10-18] MEDS: ondansetron 2 mg/ML SDV 2 mL 4 MG IVP (09:47)
--- NOTE | 2023-10-18 11:39 | P.DS_ITS ---
Discharge Providers Date of Admission: 10/16/23 06:08 Date of Discharge: October 18, 2023 Attending Provider at Admission: Chris Johansen MD Attending Provider at Discharge: Jacqui Ascencio MD Primary Care Provider: Sulma Wetzel MD Diagnoses at Discharge Discharge Diagnosis (1) Elevated troponin I level: Status: Acute (2) Shock: Status: Acute (3) Chest pain: Status: Acute Qualifiers: Chest pain type: unspecified Qualified Code(s): R07.9 - Chest pain, unspecified (4) CHF (congestive heart failure), NYHA class III: Status: Acute (5) Type 2 diabetes mellitus: Status: Acute (6) Ascites: Status: Acute Reason for Visit Reason for Visit: CP Hospital Course Hospital Course His antiplatelet regimen was changed from Plavix + Cilostazol to ASA 81mg daily + plavix 75mg daily Physical Exam Narrative: General: No acute distress, AO x3 HEENT: PERRLA, pupils bilaterally equal and reactive, pallors not present Chest: Normal vesicular breath sounds, no added sounds, equal good air entry bilaterally CVS: S1-S2 regular, no murmurs, no tachycardia, no gallops, no rubs Abdomen: Soft, nontender, no organomegaly, bowel sounds present Neuro: No focal deficits, no facial deformity, AO x3, power 5/5 in all limbs Discharge Data Studies Completed and Pending Completed Studies During Hospitalization Category Date Time Status XR chest 1V portable [id number] Routine Exams 10/16/23 07:38 Completed XR chest 1V portable [id number] Stat Exams 10/16/23 04:01 Completed XR tibia fibula RT 2V [id number] Routine Exams 10/16/23 08:42 Completed CV. echo complete* [id number] Routine Ultrasound 10/16/23 08:42 Completed Pending at discharge Category Date Time Status ENVIR[employer]MENT[employer] request for service Routine Exams 10/17/23 06:25 Taken Platelet Count Q2D Lab 10/20/23 04:00 Ordered Radiology Impressions Chest X-Ray 10/16/23 07:38 IMPRESSION: 1. Right jugular central line with tip in right atrium. 2. No pneumothorax. 3. Cardiomegaly with pulmonary vascular congestion. Tibia/Fibula X-Ray 10/16/23 08:42 IMPRESSION: 1. Circumferential soft tissue swelling is evident. 2. No acute osseous pathology. Laboratory Results WBC 4.60 10^3/uL (3.29-11.43) 10/18/23 05:50 RBC 3.41 10^6/uL (3.85-5.65) L 10/18/23 05:50 Hgb 9.30 g/dL (11.27-16.99) L 10/18/23 05:50 Hct 31.9 % (37-53) L 10/18/23 05:50 MCV 93.5 fl (82-101) 10/18/23 05:50 MCH 27.3 pg (27-33) 10/18/23 05:50 MCHC 29.2 g/dL (30-55) L 10/18/23 05:50 RDW 17.6 % (12.1-15.1) H 10/18/23 05:50 Plt Count 128 10^3/cmm (157-399) L 10/18/23 05:50 MPV 11.0 fL (7.4-10.4) H 10/18/23 05:50 Neut % (Auto) 77.0 % 10/18/23 05:50 Lymph % (Auto) 7.0 % 10/18/23 05:50 [place] % (Auto) 8.7 % 10/18/23 05:50 Eos % (Auto) 6.5 % 10/18/23 05:50 Baso % (Auto) 0.4 % 10/18/23 05:50 Neut # (Auto) 3.54 10^3/uL (1.8-7.7) 10/18/23 05:50 Lymph # (Auto) 0.3 10^3/uL (0.8-4.8) L 10/18/23 05:50 [place] # (Auto) 0.4 10^3/uL (0.2-0.9) 10/18/23 05:50 Eos # (Auto) 0.3 10^3/uL (0.0-0.8) 10/18/23 05:50 Baso # (Auto) 0.0 10^3/uL (0.0-0.1) 10/18/23 05:50 Nucleated RBC % (auto) 0 % 10/18/23 05:50 Nucleated RBCs # 0.0 /100WBC 10/18/23 05:50 PT 17.80 SECONDS (12.1-14.9) H 10/16/23 04:11 INR 1.42 (0.8-1.2) H 10/16/23 04:11 APTT 59.2 SECONDS (23.9-36.7) H 10/17/23 13:20 Sodium 137 mmol/L (136-145) 10/18/23 05:50 Potassium 5.1 mmol/L (3.5-5.1) 10/18/23 05:50 Chloride 96 mmol/L (98-107) L 10/18/23 05:50 Carbon Dioxide 27 mmol/L (22-29) 10/18/23 05:50 Anion Gap 19.1 (5-19) H 10/18/23 05:50 BUN 74 mg/dL (6-20) H 10/18/23 05:50 Creatinine 6.1 mg/dL (0.7-1.2) H* 10/18/23 05:50 GFR Calculation 9.7 mL/min (90-130) L 10/18/23 05:50 Glucose 124 mg/dL (65-115) H 10/18/23 05:50 POC Glucose 171 mg/dL (70-110) H 10/17/23 16:51 Calculated Osmolality 307 mOsm/kg (285-295) H 10/18/23 05:50 Calcium 7.7 mg/dL (8.5-10.5) L 10/18/23 05:50 Magnesium 1.9 mg/dL (1.7-2.3) 10/17/23 06:20 Total Bilirubin 0.4 mg/dL (0.15-1.2) 10/18/23 05:50 AST 11 U/L (0-40) 10/18/23 05:50 ALT 15 U/L (0-41) 10/18/23 05:50 Alkaline Phosphatase 71 U/L (40-130) 10/18/23 05:50 Troponin T Baseline 444 ng/L (0-15) H* 10/16/23 18:49 Troponin T 120 Minute 448.1 ng/L (0-15) H 10/16/23 21:01 Delta Troponin T 4.1 ABS# (0-10) 10/16/23 21:01 Troponin T Hi Sens 6Hr 448.4 ng/L (0-15) H 10/17/23 00:37 Troponin T Hi Sens 6Hr Delta 4.4 ng/L (0-12) 10/17/23 00:37 C-Reactive Protein 29.0 mg/L (0.0-4.9) H 10/17/23 06:20 NT-Pro-B Natriuret Pep > 81436 pg/mL (0-125) H 10/16/23 04:11 Total Protein 6.5 g/dL (6.6-8.7) L 10/18/23 05:50 Albumin 3.0 g/dL (3.5-5.2) L 10/18/23 05:50 Globulin 3.5 g/dL (1.3-4.6) 10/18/23 05:50 Hep Bs Antigen Non-reactive (Nonreactive) 10/16/23 04:11 Hep Bs Antibody 56.8 (11.5-1000) 10/16/23 04:11 Vitals Last Vital Signs Temp 97.9 F 10/18/23 04:00 Pulse 93 10/18/23 09:58 Resp 16 10/18/23 09:58 BP 100/69 10/18/23 05:00 Pulse Ox 98 10/18/23 09:58 O2 Del Method Nasal Cannula 10/18/23 09:58 O2 Flow Rate 3 10/18/23 09:58 FiO2 40 10/17/23 04:58 Discharge Plan Discharge Patient Disposition: Home Condition: Stable Prescriptions: New aspirin 81 mg Tablet,Delayed Release (Dr/Ec) 81 mg PO DAILY 30 Days Qty: 30 6RF midodrine 5 mg Tablet 10 mg PO TID 30 Days Qty: 180 0RF brexpiprazole 0.25 mg Tablet 0.25 mg PO QAM Qty: 0 0RF Continued (DME) Wheel Chair See Rx Instructions .Route .MEDSUPPLY Qty: 1 0RF Rx Instructions: As directed HOME (DME) Compression Stockings See Rx Instructions .Route .MEDSUPPLY Qty: 1 0RF Rx Instructions: As directed (DME) [place] boot modification See Rx Instructions .Route .MEDSUPPLY Qty: 1 0RF Rx Instructions: Straps are failing (DME) diabetic shoes with 3 heat molded insoles See Rx Instructions .Route .MEDSUPPLY Qty: 1 0RF Rx Instructions: As directed to HOME (DME) Prevalon boot See Rx Instructions .Route .MEDSUPPLY Qty: 1 0RF Rx Instructions: As directed ropinirole 0.25 mg tablet 0.25 mg PO BEDTIME PRN (Reason: Restless Leg(S)) oxycodone 5 mg Tablet 5 mg PO Q6H PRN (Reason: Pain) clopidogrel 75 mg Tablet 75 mg PO DAILY atorvastatin 80 mg tablet 80 mg PO DAILY pantoprazole 40 mg tablet,delayed release (DR/EC) 40 mg PO DAILY RenaPlex-D 800 mcg-12.5 mg -2,000 unit tablet 1 tab PO DAILY mirtazapine 30 mg tablet,disintegrating 30 mg PO DAILY nitroglycerin 0.1 mg/hr patch 24 hour 1 patch transdermal DAILY metoprolol succinate 25 mg tablet extended release 24 hr 25 mg PO DAILY ondansetron HCl 4 mg tablet 4 mg PO Q4H PRN (Reason: Nausea) sevelamer carbonate 800 mg tablet See Rx Instructions .ROUTE .COMPLEX Rx Instructions: take four to five tabs po with meals venlafaxine [Effexor XR] 75 mg Capsule,Extended Release 24hr 75 mg PO QAM hydroxyzine HCl 25 mg Tablet 25 mg PO Q6H PRN (Reason: Anxiety) polyethylene glycol 3350 [Miralax] 17 gram/dose Powder 17 g PO BID PRN (Reason: Constipation) albuterol sulfate 90 mcg/actuation Hfa Aerosol Inhaler 2 puff INHALATION Q6H PRN (Reason: Shortness Of Breath) Patient Comments: pt states he does not take this B-complex with vitamin C Capsule 1 cap PO DAILY diphenhydramine HCl [Benadryl Allergy] 25 mg tablet 25 mg PO DAILY PRN (Reason: itching) gabapentin 300 mg capsule 300 mg PO TID PRN (Reason: NERVE PAIN) trazodone 50 mg tablet 50 mg PO BEDTIME Mehdi (with collagen) 7-7-1.5 gram Powder In Packet 1 packet PO BID Rx Instructions: mix 1 packet with 8-10 oz liquid Lokelma 10 gram powder in packet See Rx Instructions .ROUTE .COMPLEX Rx Instructions: as directed Garlic Edta 1 tab PO BID Discontinued cilostazol 50 mg Tablet 50 mg PO BID Discharge Orders: Discharge Order (Routine); Ordered 10/18/23 Ordered By: Jacqui Ascencio Referrals: Sulma Wetzel MD [Primary Care Provider] - Chel Ritchie FNP [Nurse Practitioner] - 1 week Patient Instructions: Opioid Safety Discharge Attestations Time Spent in Discharge Care*: greater than 30 min Status at Discharge: Cognitive status at discharge: cognitively intact , Behavioral status at discharge: cooperative , Quality Metrics Clinical Quality Measures [ Acute Myocardial Infaction { Clinical Trial Participant: No; Contraindication to aspirin: None; Aspirin prescribed; Contraindication to statin: None; Statin prescribed; Contraindication to PCI: None; PCI performed;}] Coding Level of Care Code Acute Code for Chg Fwd Diagnoses Elevated troponin I level R79.89 Shock R57.9 Chest pain R07.9 Chest pain type: unspecified Chronic diastolic congestive heart failure, NYHA class 3 I50.9 Type 2 diabetes mellitus E11.9 Ascites R18.8
[2023-10-18 12:13] LABS: Glucose Point of Care 146 mg/dL (70-110)
[2023-10-18] MEDS: insulin lispro 100 unit/1 mL SUBCUT (12:17)
--- NOTE | 2023-10-18 15:10 | PC.NURSE ---
Pt taken by HD RN to have HD performed on the 2nd floor at this time.
[2023-10-18] MEDS: epoetin alfa 1000 Unit/0.05 mL (ESRD) 20000 UNIT IVP (16:12)
[2023-10-18] MEDS: albumin 12.5 GM/50 ML VIAL IV ×2 (16:19→16:39)
--- NOTE | 2023-10-18 16:30 | P.PN_ITS ---
Subjective 2 Subjective: feels better Medications: Reviewed: Yes Vitals/I&O/Wt Last Vital Signs Temp 97.9 F 10/18/23 04:00 Pulse 93 10/18/23 14:00 Resp 16 10/18/23 09:58 BP 100/69 10/18/23 05:00 Pulse Ox 98 10/18/23 09:58 O2 Del Method Nasal Cannula 10/18/23 09:58 O2 Flow Rate 3 10/18/23 09:58 FiO2 40 10/17/23 04:58 10/18/23 10/18/23 10/18/23 06:59 14:59 22:59 Intake Total 124.75 / 1272.75 240 / 240 Output Total 0 / 0 Balance 124.75 / -1527.25 240 / 240 Weight last 48 hrs Weight 122.016 kg Weight 123 kg Weight 124.778 kg Weight 122.5 kg Physical Exam 2 Narrative: awake ,a lert heent s1s2 rrr per report Lungs clear per report no edema Data 10/18/23 05:50 10/18/23 05:50 A&P Assessment and plan (1) End-stage renal disease on hemodialysis: Plan 1. End-stage renal disease: On TTS schedule as outpatient, s/p HD yesterday, and HD again today 2. Anemia: Hemoglobin 10.5 , monitor on ALBERTO with HD 3. History of hypertension, resume home meds 4. NSTEMI, management per cardiology. Patient with prior stents- s/p LHC and stent to LAD 5. Liver failure with recurrent ascites and paracentesis Patient evaluated using audiovisual cart. Time spent 20 minutes Attestations 2 Medical Necessity Statement*: per mrak Coding Level of Care Code Acute Code for Chg Fwd Diagnoses End-stage renal disease on hemodialysis N18.6; Z99.2
[2023-10-18] MEDS: heparin, porcine 1,000 unit/mL INJ 10 mL 1000 UNIT IV (17:19)
[2023-10-18 17:35] LABS: Glucose Point of Care 112 mg/dL (70-110)
--- NOTE | 2023-10-18 17:42 | PC.NURSE ---
Notified by BERT Maher RN that pt refused to complete his dialysis treatment after only part of the way into starting it. Pt was brought back to the room and is now eating supper and ready to be discharged home.
--- NOTE | 2023-10-18 18:10 | PC.NURSE ---
D/C'd RIJ without difficulty noted. Cleansed area with Chloraprep, removed sutures, withdrew line, and applied pressure x 5 minutes and then covered with 2x2 gauze dressing and tegaderm. Pt tolerated procedure well.
--- NOTE | 2023-10-18 18:29 | PC.HD ---
One hour into dialysis treatment patient requested termination of treatment d/t restlessness and discomfort, declined request for medication or additional repositioning. Dr Sams ntfd of early termination.
--- NOTE | 2023-10-18 19:17 | PC.NURSE ---
Discharge Note Patient discharged to [home] via [w/c to POV] accompanied by [spouse]. Discharge instructions reviewed with patient and/or indirect sales representative. Mobile pharmacy medications and/or prescriptions provided. Belongings/home medications returned.
== END 2023-10-18 19:18 | disposition home or self-care (01) | DRG 321 ==
LOC: ER 04:27 → ICU 06:09
PROVIDERS: Hospitalist; Internal Medicine; Admitting Provider Internal Medicine; Emergency Provider Family Medicine; PCP Internal Medicine; Visit Provider Student in an Organized Health Care Education/Training Program
DX: T82.855A Stenosis of coronary artery stent, initial encounter (principal); I21.4 Non-ST elevation (NSTEMI) myocardial infarction; I50.23 Acute on chronic systolic (congestive) heart failure; N18.6 End stage renal disease; R57.0 Cardiogenic shock; R18.8 Other ascites; L97.311 Non-pressure chronic ulcer of right ankle limited to breakdown of skin; I13.2 Hypertensive heart and chronic kidney disease with heart failure and with stage 5 chronic kidney disease, or end stage renal disease; E66.2 Morbid (severe) obesity with alveolar hypoventilation; L03.115 Cellulitis of right lower limb; J96.11 Chronic respiratory failure with hypoxia; Y71.8 Miscellaneous cardiovascular devices associated with adverse incidents, not elsewhere classified; K72.90 Hepatic failure, unspecified without coma; E11.22 Type 2 diabetes mellitus with diabetic chronic kidney disease; E11.42 Type 2 diabetes mellitus with diabetic polyneuropathy; E11.51 Type 2 diabetes mellitus with diabetic peripheral angiopathy without gangrene; E11.622 Type 2 diabetes mellitus with other skin ulcer; D63.1 Anemia in chronic kidney disease; Z99.2 Dependence on renal dialysis; Z99.3 Dependence on wheelchair; Z79.02 Long term (current) use of antithrombotics/antiplatelets; Z85.528 Personal history of other malignant neoplasm of kidney; Z68.36 Body mass index [BMI] 36.0-36.9, adult; Z87.01 Personal history of pneumonia (recurrent); Z86.16 Personal history of COVID-19; Z89.512 Acquired absence of left leg below knee; Z90.5 Acquired absence of kidney
CPT/HCPCS: 36416; 36592; 49083; 71045; 73590; 80048; 80053; 82962; 83735; 83880; 84484; 85025; 85347; 85610; 85730; 86140; 86706; 87340; 90935; 92920; 92978; 92979; 93005; 93306; 93454; 94660; 96365; 96366; 96367; 96372; 96374; 96375; 96376; 97597; 97598; 99152; 99153; 99212; 99285; A4222; A6197; A6251; C1725; C1753; C1769; C1874; C1887; C1894; C9600; J1200; J1644; J1815; J2250; J2270; J2405; J2543; J2704; J3010; J3370; J7030; J7050; P9046; P9047; Q3014; Q4081; Q9967

== ENCOUNTER → 2023-10-23 10:43 | Outpatient (BNVA) | payer MEDICARE, MEDICAID, SELFPAY | PROVIDERS: PCP Internal Medicine; Visit Provider Thoracic Surgery (Cardiothoracic Vascular Surgery) | DX: T87.81 Dehiscence of amputation stump (principal); Y83.8 Other surgical procedures as the cause of abnormal reaction of the patient, or of later complication, without mention of misadventure at the time of the procedure; Z89.512 Acquired absence of left leg below knee; L89.322 Pressure ulcer of left buttock, stage 2; S80.821D Blister (nonthermal), right lower leg, subsequent encounter; X58.XXXD Exposure to other specified factors, subsequent encounter; S81.011A Laceration without foreign body, right knee, initial encounter; X58.XXXA Exposure to other specified factors, initial encounter | CPT/HCPCS: 97597; 97598; A6197; A6251; A6253 ==

== ENCOUNTER 2023-10-24 08:22 | Day surgery (SDC) | payer MEDICARE, MEDICAID, SELFPAY ==
--- NOTE | 2023-10-24 08:38 | US_ITS ---
WS: [id number] ULTRASOUND-GUIDED THERAPEUTIC PARACENTESIS Procedure, risks, and complications have been explained to the patient. Consent is obtained. Utilizing aseptic technique and 1% buffered lidocaine, a small dermatome was made through which a 5 F rench Yueh catheter was inserted. Approximately 10,000 ml of clear peritoneal fluid was obtained wit hout difficulty. No complications encountered. IMPRESSION: Uncomplicated paracentesis yielding 10,000 ml of peritoneal fluid.
[2023-10-24 08:44] VITALS: BP 101/66; PULSE 86; RESP 18; TEMP 36.4; O2SAT 93
[2023-10-24] MEDS: albumin 75 G/300 ML BAG 500 G IV (09:27)
[2023-10-24] MEDS: ondansetron 2 mg/ML SDV 2 mL 4 MG IVP (09:40)
== END 2023-10-24 10:30 | disposition home or self-care (01) ==
LOC: GILAB 08:23
PROVIDERS: Radiology Diagnostic Radiology; PCP Internal Medicine; Visit Provider Registered Nurse
PROC: (CPT 49082; principal; 2023-10-24 09:00)
DX: R18.8 Other ascites (principal)
CPT/HCPCS: 49083; 96365; 96374; J2405; P9046

== ENCOUNTER 2023-10-29 10:47 | Day surgery (SDC) | payer MEDICARE, MEDICAID, SELFPAY ==
--- NOTE | 2023-10-29 10:54 | US_ITS ---
WS: [id number] ULTRASOUND-GUIDED THERAPEUTIC PARACENTESIS Procedure, risks, and complications have been explained to the patient. Consent is obtained. Utilizing aseptic technique and 1% buffered lidocaine, a small dermatome was made through which a 5 F rench Yueh catheter was inserted. Approximately 9300 ml of clear peritoneal fluid was obtained witho ut difficulty. No complications encountered. IMPRESSION: Uncomplicated paracentesis yielding 9300 ml of peritoneal fluid.
[2023-10-29 11:15] VITALS: BP 92/65; PULSE 89; RESP 18; TEMP 36.1; O2SAT 91
[2023-10-29] MEDS: albumin 75 G/300 ML BAG 500 G IV (11:52)
== END 2023-10-29 12:30 | disposition home or self-care (01) ==
PROVIDERS: Radiology Diagnostic Radiology; PCP Internal Medicine; Visit Provider Registered Nurse
PROC: (CPT 49082; principal; 2023-10-29 12:00)
DX: R18.8 Other ascites (principal); T87.81 Dehiscence of amputation stump; Y83.8 Other surgical procedures as the cause of abnormal reaction of the patient, or of later complication, without mention of misadventure at the time of the procedure; Z89.512 Acquired absence of left leg below knee; E11.622 Type 2 diabetes mellitus with other skin ulcer; L97.812 Non-pressure chronic ulcer of other part of right lower leg with fat layer exposed; S81.012D Laceration without foreign body, left knee, subsequent encounter; S81.011D Laceration without foreign body, right knee, subsequent encounter; X58.XXXD Exposure to other specified factors, subsequent encounter; Z09 Encounter for follow-up examination after completed treatment for conditions other than malignant neoplasm
CPT/HCPCS: 11042; 11045; 49083; 96365; A6252; P9046

== ENCOUNTER → 2023-10-31 15:38 | Outpatient (BNVA) | payer MEDICARE, MEDICAID, SELFPAY | PROVIDERS: PCP Internal Medicine; Visit Provider Nurse Practitioner Family | DX: Z09 Encounter for follow-up examination after completed treatment for conditions other than malignant neoplasm (principal); I21.4 Non-ST elevation (NSTEMI) myocardial infarction | CPT/HCPCS: 99214 ==

== ENCOUNTER 2023-11-05 04:14 | Inpatient (IN) | payer MEDICARE, MEDICAID, SELFPAY ==
[2023-11-05] VITALS (155 sets, daily range): BP systolic 71–136; BP diastolic 44–99; PULSE 74–145; RESP 14–44; TEMP 36.6–39.7; O2SAT 81–100; BMI 33.0; BMI 35.6
--- NOTE | 2023-11-05 04:21 | ECG_ITS ---
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 Measurements Intervals [place] Rate: 125 P: 0 NC: 0 QRS: 154 QRSD: 117 T: -10 QT: 320 QTc: 461 Interpretive Statements ATRIAL FLUTTER WITH RAPID VENTRICULAR RESPONSE INCOMPLETE RIGHT BUNDLE BRANCH BLOCK [90+ ms QRS DURATION, TERMINAL R IN V1/V2, 40+ ms S IN I/aVL/V4/V5/V6] POSSIBLE RIGHT VENTRICULAR HYPERTROPHY [SOME/ALL OF: PROMINENT R IN V1, LATE TRANSITION, RAD, JEROME, SSS] POSSIBLE ANTERIOR MYOCARDIAL INFARCTION , OF INDETERMINATE AGE [30 ms Q WAVE IN V3/V4, OR R < 0.2 mV IN V4] INFERIOR MYOCARDIAL INFARCTION , OF INDETERMINATE AGE [40+ ms Q WAVE AND/OR ST/T ABNORMALITY IN II/aVF] Compared to ECG 10/17/2023 00:36:59 Atrial abnormality now present Myocardial infarct finding still present Electronically Signed On 11-05-2023 13:14:49 CDT by Erik Arguelles M.D. [id number]
--- NOTE | 2023-11-05 04:36 | XRR_ITS ---
PROCEDURE INFORMATION: Exam: XR Chest Exam date and time: 11/05/2023 4:40 AM Age: 53 years old Clinical indication: Chest pressure; Prior surgery; Surgery date: 6+ months; Surgery type: Bilateral partial nephrectomy; Patient HX: C/O chest pain. History of chf and copd. ; Additional info: Cp TECHNIQUE: Imaging protocol: Radiologic exam of the chest. Views: 1 view. COMPARISON: CR XR chest 1V portable [id number] 10/16/2023 7:38 AM FINDINGS: Lungs: Mild diffuse chronic appearing interstitial edema or scarring again seen. No consolidation. Pleural spaces: Unremarkable. No pleural effusion. No pneumothorax. Heart/Mediastinum: The heart is again large. Vasculature: Right IJ line removal. Bones/joints: Unremarkable. XR/XR chest 1V portable [id number] IMPRESSION: Stable chest.
[2023-11-05 04:49] LABS: Basophils % 0.3 %; Eosinophils # 0.3 10^3/uL (0.0-0.8); Eosinophils % 3.6 %; Hematocrit 36.4 % (37-53); Lymphocytes # 0.4 10^3/uL (0.8-4.8); Lymphocytes % 4.2 %; Mean Corpuscular HGB Conc 29.1 g/dL (30-55); Mean Corpuscular Hemoglobin 27.5 pg (27-33); Mean Corpuscular Volume 94.5 fl (82-101); Mean Platelet Volume 11.1 fL (7.4-10.4); Monocytes # 0.8 10^3/uL (0.2-0.9); Monocytes % 8.8 %; Neutrophils # 7.22 10^3/uL (1.8-7.7); Nucleated Red Blood Cells % 0 %; Platelet Count 115 10^3/cmm (157-399); Red Blood Count 3.85 10^6/uL (3.85-5.65); Red Cell Distribution Width 17.2 % (12.1-15.1); White Blood Count 8.71 10^3/uL (3.29-11.43)
[2023-11-05] MEDS: morphine 4 mg/mL SDV 1 mL IVP (04:54)
[2023-11-05] MEDS: ondansetron 2 mg/ML SDV 2 mL 4 MG IVP (04:54)
--- NOTE | 2023-11-05 04:57 | ECG_ITS ---
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 Measurements Intervals [place] Rate: 122 P: 159 SD: 232 QRS: 190 QRSD: 119 T: 5 QT: 339 QTc: 485 Interpretive Statements SINUS TACHYCARDIA WITH FIRST DEGREE AV BLOCK ARM LEADS REVERSED [INVERTED P AND QRS IN I] DEXTROCARDIA [INVERTED P AND QRS IN V6] Compared to ECG 11/05/2023 04:21:23 First degree AV block now present Atrial flutter no longer present Incomplete right bundle-branch block no longer present Atrial abnormality no longer present Myocardial infarct finding no longer present Electronically Signed On 11-05-2023 13:20:25 CDT by Erik Arguelles M.D. [email or web address]
[2023-11-05 05:03] LABS: Troponin(5th) Baseline 262 ng/L (0-15)
[2023-11-05] MEDS: acetaminophen 325 mg Tablet 650 MG PO (05:06)
[2023-11-05 05:08] LABS: Alanine Aminotransferase 13 U/L (0-41); Albumin Level 3.2 g/dL (3.5-5.2); Alkaline Phosphatase 99 U/L (40-130); Anion Gap 18.4 (5-19); Aspartate Amino Transferase 19 U/L (0-40); Blood Urea Nitrogen 60 mg/dL (6-20); Calcium 7.6 mg/dL (8.5-10.5); Carbon Dioxide 32 mmol/L (22-29); Chloride 94 mmol/L (98-107); Creatinine Clr Calc Pharmacy 19.4373; Globulin 3.8 g/dL (1.3-4.6); Glomerular Filtration Rate 10.3 mL/min (90-130); Glucose 122 mg/dL (65-115); Magnesium 1.8 mg/dL (1.7-2.3); Osmolality Calculated 304 mOsm/kg (285-295); Phosphorus 5.5 mg/dL (2.5-4.5); Potassium 6.4 mmol/L (3.5-5.1); Sodium 138 mmol/L (136-145); Total Bilirubin 0.5 mg/dL (0.15-1.2)
[2023-11-05] MEDS: sodium chloride 0.9% 250 ML IV (05:20)
[2023-11-05 05:25] LABS: Lactic Sepsis W/Reflex 1.7 mmol/L (0.5-2.2)
[2023-11-05 05:41] LABS: NT Pro B Type Natriuretic Pept > 70000 pg/mL (0-125)
--- NOTE | 2023-11-05 05:57 | W.ED.CHESTPA ---
Documented by User: Jerman Palencia DO 11/05/23 22:26 HPI - Chest Pain General: Chief Complaint: Chest Pain Stated Complaint: CP Time Seen by Provider: 11/05/23 04:25 History of Present Illness: 53-year-old male with a history of chronic renal failure on dialysis, coronary disease, heart failure, renal cell carcinoma, multiple other medical problems. He presents with chest discomfort this morning. He is short of breath as well. He is due for dialysis on Sunday. He was supposed to get his belly drained today he says. He also has a temperature of 103. He does not feel like he has a temperature necessarily. He denies any cough. He does not really produce urine. Although distended, his belly is not hurting him he says. Associated symptoms: Reports dyspnea and fever(s); Deny abdominal pain, nausea, palpitations or vomiting Review of Systems Const: Reports: fever(s); Denies: chills or body aches Eyes: Denies: change in vision Card: Reports: chest pain; Denies: palpitations Resp: Reports: dyspnea; Denies: productive cough, non-productive cough or wheezing GI: Denies: abdominal pain, nausea, vomiting, diarrhea or hematochezia Skin/Breast: Denies: rash Neuro: Denies: headache(s), weakness in extremities, dizziness or confusion [facility] ED PFSH: Medical History (Updated 11/05/23 @ 22:16 by Jerman Palencia DO) Uremia Chronic osteomyelitis Type 2 diabetes mellitus 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, limited to breakdown of skin Chronic osteomyelitis of right foot Foot osteomyelitis, right Osteomyelitis Cellulitis Necrosis of surgical wound Foot osteomyelitis, left Hypovolemic shock Anemia of chronic disease Ulcer of sacral region, stage 1 Gas gangrene Acquired equinovarus deformity of left foot Pre-ulcerative calluses Xerosis of skin 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 Cellulitis Diabetes BMI 50.0-59.9, adult Diabetic foot ulcers Fracture, thoracic vertebra T7-T8 Osteomyelitis Non-pressure chronic ulcer of other part of right foot with necrosis of muscle Chronic venous insufficiency Chronic dysfunction of both eustachian tubes Lung nodule Hypoglycemia unawareness associated with type 2 diabetes mellitus Chronic ulcer of left foot with fat layer exposed Non-healing ulcer of right foot with fat layer exposed Vitamin D deficiency First degree heart block COPD (chronic obstructive pulmonary disease) Hypertension Urinary retention History of renal cell carcinoma Morbid obesity with BMI of 40.0-44.9, adult Cardiac arrest Anemia Pneumonia due to 2019-nCoV (~07/2020) Renal cell carcinoma History bilateral renal cell carcinoma 2007 then recurrence on the contralateral side 2011. No recurrence for long-term follow-up with some suspicion on CT scan April 2020. CHF (congestive heart failure), NYHA class III Chronic respiratory failure with hypoxia and hypercapnia Obesity hypoventilation syndrome Metabolic alkalosis Accelerated hypertension Restrictive lung disease Obstructive sleep apnea non compliant with home bipap/cpap Fracture of fourth metatarsal bone of left foot Type 2 diabetes mellitus with diabetic polyneuropathy PVD (peripheral vascular disease) Fracture of fifth metatarsal bone of left foot Neuropathy Surgical History Status post below-knee amputation of left lower extremity History of left below knee amputation History of cataract surgery H/O wisdom tooth extraction Hx of lymph node excision H/O partial nephrectomy bilateral Family History Father , at age 65 Diabetes Cancer Metastatic prostate cancer to liver Mother , at age 72 Diabetes Grandfather Diabetes Cancer Other Anemia Hyperlipidemia Social History Smoking and tobacco/nicotine status: never used tobacco/nicotine Second hand smoke exposure: Yes Alcohol intake: current Alcohol intake frequency: holidays/special occasions only Substance/Drug Use: never Lives independently: Yes Household members: spouse Housing: House Marital status: service: No Current occupational status: retired Pets and animals: Yes Do you think of yourself as: Straight/Heterosexual Current gender identity: Male Physical Exam Const: COMMON NORMALS: alert EXAM LIMITATIONS: no altered mental status GENERAL APPEARANCE: cooperative, ill appearing and frail appearing NUTRITIONAL APPEARANCE: obese ORIENTATION/CONSCIOUSNESS: Yes awake, Yes oriented to person, Yes oriented to place and Yes oriented to time HENMT: COMMON NORMALS: normocephalic HEAD & SCALP: normocephalic FACE & SINUS: face symmetric Eye: COMMON NORMALS: Equal, round and reactive pupils present and EOMs intact bilaterally PUPIL: Yes Equal, round and reactive pupils present Neck/C-Spine: GENERAL: Yes trachea midline and No anterior neck swelling Resp: COMMON NORMALS: normal respiratory effort and No use of accessory muscles AUSCULTATION: diminished lung sounds Cardio: COMMON NORMALS: regular rhythm RATE: tachycardic (mild) RHYTHM: regular rhythm GI: INSPECTION: Yes Abdominal wall edema, Yes Anasarca and Yes abdominal distension PALPATION: No Tenderness to palpation present (GI) Extremity: NARRATIVE EXTREMITY EXAM: Chronic wounds RLE with some surrounding cellulitis, no drainage or streaking. amputation LLE Neuro: RADHA COMA SCALE: document GCS findings [place] coma scale eye opening: Spontaneous [place] coma scale verbal response: Orientated Radha coma scale motor response: Obey commands [place] coma scale total score: 15 SENSORIUM/ORIENTATION: Yes alert, Yes oriented to person, Yes oriented to place and Yes oriented to time Procedures Intubation Time out performed: No sedative: none Laryngoscope: Annamarie (4) ET Tube Size: 8 ET Tube Uncuffed: No Tube Secured Depth (cm): 25 Tube Secured Location: lips Tube Placement Confirmation: visualized tube passing through cords, equal breath sounds bilaterally and confirmation by capnometry Patient Tolerated Procedure: well and no complications Intubation Complications: none Course Vital Signs: Vital signs: Vital Signs Temperature 98.6 F 11/05/23 17:22 Pulse Rate 79 11/05/23 20:00 Respiratory Rate 20 H 11/05/23 19:41 Blood Pressure 89/58 11/05/23 20:00 Pulse Oximetry 94 11/05/23 20:00 Oxygen Delivery Me thod Mechanical Ventil ation 11/05/23 16:55 Oxygen Flow Rate 4 11/05/23 06:07 Fraction of Inspir ed Oxygen 100 11/05/23 21:55 MDM - Chest Pain Medical Decision Making Patient has a mildly low blood pressure in the ER. Blood pressure as low as 80 systolic. MAP is generally staying above 65. Hemoglobin 10.6. White blood cell count 8.7 despite fever. His creatinine is 5.8. Potassium is 6.4. No EKG changes related to his potassium. EKG does show sinus tachycardia in the 100s. [place] is left. No acute ST wave changes. Chest appears stable from prior. He does have chronic osteomyelitis by history as well. He is covered with Zosyn after blood cultures here. He will go to ICU given his marginal blood pressure, need for dialysis today likely, and possible need for paracentesis. Spoke with hospitalist who agrees. Will obtain nephrology consult. He is also given a 250mL IV fluid bolus for bp support as well as the hyperkalemia. of course, he is not a candidate for full sepsis bolus given his renal failure. Monitor alarm went off on this patient, and it was quickly realized that patient was in ventricular fibrillation. Crash cart was moved into the room, code was called. Chest compressions were started. [id number]-cvuo was placed on the patient with bag valve respirations given. 1 mg of epinephrine was given immediately IV. There was no pulse at first pulse check, and chest compressions were continued. The patient also received calcium chloride, due to the history of high potassium, although the potassium is only mildly high in this patient. At this point Dr. Sam assisted with the code. I proceeded with airway management and placed an 8.0 endotracheal tube and the patient successfully. Breath sounds were equal. Code was continued. The patient got more epinephrine. At next pulse check, shock was given for coarse ventricular fibrillation and chest compressions were continued. ROSC was achieved at next pulse check. The patient was moved into a trauma room. Amiodarone was infused. Central line was placed by Dr. Bradford. Vasopressin was started for blood pressure support. Push dose epi was used for a short period of time until Levophed was started also for blood pressure support. Repeat EKG showed atrial flutter with RVR, with a rate in the 130s. Sedation was started with Versed and fentanyl. Diltiazem was ordered for rate, if needed. The patient is overbreathing the vent currently, and moves all extremities. We will continue to stabilize in the ER, at which point he will moved to the ICU when a bed is ready. Hospitalist will see in the ER. Lab Data 11/05/23 04:26 11/05/23 09:00 Laboratory Results WBC 8.71 10^3/uL (3.29-11.43) 11/05/23 04:26 RBC 3.85 10^6/uL (3.85-5.65) 11/05/23 04:26 Hgb 10.60 g/dL (11.27-16.99) L 11/05/23 04:26 Hct 36.4 % (37-53) L 11/05/23 04:26 MCV 94.5 fl (82-101) 11/05/23 04:26 MCH 27.5 pg (27-33) 11/05/23 04: MCHC 29.1 g/dL (30-55) L 11/05/23 04:26 RDW 17.2 % (12.1-15.1) H 11/05/23 04:26 Plt Count 115 10^3/cmm (157-399) L 11/05/23 04:26 MPV 11.1 fL (7.4-10.4) H 11/05/23 04:26 Neut % (Auto) 83.0 % 11/05/23 04:26 Lymph % (Auto) 4.2 % 11/05/23 04:26 [place] % (Auto) 8.8 % 11/05/23 04:26 Eos % (Auto) 3.6 % 11/05/23 04:26 Baso % (Auto) 0.3 % 11/05/23 04: Neut # (Auto) 7.22 10^3/uL (1.8-7.7) 11/05/23 04:26 Lymph # (Auto) 0.4 10^3/uL (0.8-4.8) L 11/05/23 04:26 [place] # (Auto) 0.8 10^3/uL (0.2-0.9) 11/05/23 04:26 Eos # (Auto) 0.3 10^3/uL (0.0-0.8) 11/05/23 04:26 Baso # (Auto) 0.0 10^3/uL (0.0-0.1) 11/05/23 04:26 Nucleated RBC % (auto) 0 % 11/05/23 04: Nucleated RBCs # 0.0 /100WBC 11/05/23 04:26 ESR 83 mm/hr (0-10) H 11/05/23 04:26 Sodium 138 mmol/L (136-145) 11/05/23 04:26 Potassium 6.4 mmol/L (3.5-5.1) H 11/05/23 04:26 Chloride 94 mmol/L (98-107) L 11/05/23 04:26 Carbon Dioxide 32 mmol/L (22-29) H 11/05/23 04:26 Anion Gap 18.4 (5-19) 11/05/23 04:26 BUN 60 mg/dL (6-20) H 11/05/23 04:26 Creatinine 5.8 mg/dL (0.7-1.2) H* 11/05/23 04:26 GFR Calculation 10.3 mL/min (90-130) L 11/05/23 04:26 Glucose 122 mg/dL (65-115) H 11/05/23 04:26 Calculated Osmolality 304 mOsm/kg (285-295) H 11/05/23 04:26 Lactic Acid 1.7 mmol/L (0.5-2.2) 11/05/23 04:26 Calcium 7.6 mg/dL (8.5-10.5) L 11/05/23 04:26 Phosphorus 5.5 mg/dL (2.5-4.5) H 11/05/23 04:26 Magnesium 1.8 mg/dL (1.7-2.3) 11/05/23 04:26 Total Bilirubin 0.5 mg/dL (0.15-1.2) 11/05/23 04:26 AST 19 U/L (0-40) 11/05/23 04:26 ALT 13 U/L (0-41) 11/05/23 04:26 Alkaline Phosphatase 99 U/L (40-130) 11/05/23 04:26 Troponin T Baseline 262 ng/L (0-15) H* 11/05/23 04:26 Troponin T 120 Minute 260.3 ng/L (0-15) H 11/05/23 05:55 Delta Troponin T -1.7 ABS# (0-10) L 11/05/23 05:55 C-Reactive Protein 26.4 mg/L (0.0-4.9) H 11/05/23 04:26 NT-Pro-B Natriuret Pep > 56790 pg/mL (0-125) H 11/05/23 04:26 Total Protein 7.0 g/dL (6.6-8.7) 11/05/23 04:26 Albumin 3.2 g/dL (3.5-5.2) L 11/05/23 04:26 Globulin 3.8 g/dL (1.3-4.6) 11/05/23 04:26 Procalcitonin 0.43 ng/mL (0-0.5) 11/05/23 04:26 Adenovirus (PCR) Not detected (NOT DETECT) 11/05/23 05:01 C. pneumoniae DNA (PCR) Not detected (NOT DETECT) 11/05/23 05:01 Coronavirus 229E (PCR) Not detected (NOT DETECT) 11/05/23 05:01 Human Metapneumovir PCR Not detected (NOT DETECT) 11/05/23 05:01 Influenza A (H1) PCR Not detected (NOT DETECT) 11/05/23 05:01 Influ A (H1/09) PCR Not detected (NOT DETECT) 11/05/23 05:01 Influenza A (H3) PCR Not detected (NOT DETECT) 11/05/23 05:01 Influenza Type A (PCR) Not detected (NOT DETECT) 11/05/23 05:01 Influenza Type B (PCR) Not detected (NOT DETECT) 11/05/23 05:01 M. pneumoniae (PCR) Not detected (NOT DETECT) 11/05/23 05:01 Parainfluenza 1 (PCR) Not detected (NOT DETECT) 11/05/23 05:01 Parainfluenza 2 (PCR) Not detected (NOT DETECT) 11/05/23 05:01 Parainfluenza 3 (PCR) Not detected (NOT DETECT) 11/05/23 05:01 Parainfluenza 4 (PCR) Not detected (NOT DETECT) 11/05/23 05:01 RSV Type A (PCR) Not detected (NOT DETECT) 11/05/23 05:01 RSV Type B (PCR) Not detected (NOT DETECT) 11/05/23 05:01 Entero/Rhino (PCR) Not detected (NOT DETECT) 11/05/23 05:01 SARS-CoV-2 (PCR) Not detected (NOT DETECT) 11/05/23 05:01 XR interpretation done by ED provider, pending radiology final review Critical Care Time Critical Care Time: Critical Care Time: Yes Total Critical Care Time: 55 Attestation: This case had a high probability of a clinically significant, sudden, or life threatening deterioration of this patient's condition which required my full and direct attention, intervention and personal management. Time is independent of any procedures performed on the patient. Discharge Plan Discharge Patient Disposition: Admitted As Inpatient Admit Provider: Darren Vela Clinical Impression: End-stage renal disease on hemodialysis, Acute hyperkalemia, Cardiac arrest Condition: Critical Coding Level of Care Code ED Crinkling Machine Operator for Chg Fwd Documented by User: Jerry Bradford DO 11/05/23 08:22 HPI - Chest Pain General: Chief Complaint: Chest Pain Stated Complaint: CP Time Seen by Provider: 11/05/23 04:25 PFSH ED PFSH: Medical History (Updated 11/05/23 @ 22:16 by Jerman Palencia DO) Uremia Chronic osteomyelitis Type 2 diabetes mellitus 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, limited to breakdown of skin Chronic osteomyelitis of right foot Foot osteomyelitis, right Osteomyelitis Cellulitis Necrosis of surgical wound Foot osteomyelitis, left Hypovolemic shock Anemia of chronic disease Ulcer of sacral region, stage 1 Gas gangrene Acquired equinovarus deformity of left foot Pre-ulcerative calluses Xerosis of skin 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 Cellulitis Diabetes BMI 50.0-59.9, adult Diabetic foot ulcers Fracture, thoracic vertebra T7-T8 Osteomyelitis Non-pressure chronic ulcer of other part of right foot with necrosis of muscle Chronic venous insufficiency Chronic dysfunction of both eustachian tubes Lung nodule Hypoglycemia unawareness associated with type 2 diabetes mellitus Chronic ulcer of left foot with fat layer exposed Non-healing ulcer of right foot with fat layer exposed Vitamin D deficiency First degree heart block COPD (chronic obstructive pulmonary disease) Hypertension Urinary retention History of renal cell carcinoma Morbid obesity with BMI of 40.0-44.9, adult Cardiac arrest Anemia Pneumonia due to 2019-nCoV (~07/2020) Renal cell carcinoma History bilateral renal cell carcinoma 2007 then recurrence on the contralateral side 2011. No recurrence for long-term follow-up with some suspicion on CT scan April 2020. CHF (congestive heart failure), NYHA class III Chronic respiratory failure with hypoxia and hypercapnia Obesity hypoventilation syndrome Metabolic alkalosis Accelerated hypertension Restrictive lung disease Obstructive sleep apnea non compliant with home bipap/cpap Fracture of fourth metatarsal bone of left foot Type 2 diabetes mellitus with diabetic polyneuropathy PVD (peripheral vascular disease) Fracture of fifth metatarsal bone of left foot Neuropathy Surgical History Status post below-knee amputation of left lower extremity History of left below knee amputation History of cataract surgery H/O wisdom tooth extraction Hx of lymph node excision H/O partial nephrectomy bilateral Family History Father , at age 65 Diabetes Cancer Metastatic prostate cancer to liver Mother , at age 72 Diabetes Grandfather Diabetes Cancer Other Anemia Hyperlipidemia Social History Smoking and tobacco/nicotine status: never used tobacco/nicotine Second hand smoke exposure: Yes Alcohol intake: current Alcohol intake frequency: holidays/special occasions only Substance/Drug Use: never Lives independently: Yes Household members: spouse Housing: House Marital status: service: No Current occupational status: retired Pets and animals: Yes Do you think of yourself as: Straight/Heterosexual Current gender identity: Male Procedures Central Line Placement Right IJ: Time Out Performed: Yes Patient Placed on Monitor/Pulse Ox: Yes Prep: mask, gown and gloves Central Line Prep: Chlorhexidine scrub Ultrasound Used for Placement: Yes Central Line Lumen Inserted: triple Post Procedure: sutured in place, all ports aspirated, flushed, capped and sterile dressing applied Post Procedure X-Ray: tip of catheter in good position and no pneumothorax seen Patient Tolerated Procedure: well and no complications Complications: none Course Vital Signs: Vital signs: Vital Signs Temperature 98.6 F 11/05/23 17:22 Pulse Rate 79 11/05/23 20:00 Respiratory Rate 20 H 11/05/23 19:41 Blood Pressure 89/58 11/05/23 20:00 Pulse Oximetry 94 11/05/23 20:00 Oxygen Delivery Me thod Mechanical Ventil ation 11/05/23 16:55 Oxygen Flow Rate 4 11/05/23 06:07 Fraction of Inspir ed Oxygen 100 11/05/23 21:55 MDM - Chest Pain Medical Decision Making Patient is a mildly low blood pressure in the ER. Blood pressure as low as 80 systolic. MAP is generally staying above 65. Hemoglobin 10.6. White blood cell count 8.7 despite fever. His creatinine is 5.8. Potassium is 6.4. No EKG changes related to his potassium. EKG does show sinus tachycardia in the 100s. [place] is left. No acute ST wave changes. Chest appears stable from prior. He does have chronic osteomyelitis by history as well. He is covered with Zosyn after blood cultures here. He will go to ICU given his marginal blood pressure, need for dialysis today likely, and possible need for paracentesis. Spoke with hospitalist who agrees. Patient was awaiting transfer to the ICU went to [facility]. I assisted Dr. Palencia with the code. We were able to achieve ROSC see his note. Right IJ central line applied under ultrasound guidance without complication. See Dr. Palencia's notes for COVID summary. Medical Records I reviewed the patient's medical records. Lab Data I reviewed the patient's lab results. 11/05/23 04:26 11/05/23 09:00 Laboratory Results WBC 8.71 10^3/uL (3.29-11.43) 11/05/23 04:26 RBC 3.85 10^6/uL (3.85-5.65) 11/05/23 04:26 Hgb 10.60 g/dL (11.27-16.99) L 11/05/23 04:26 Hct 36.4 % (37-53) L 11/05/23 04:26 MCV 94.5 fl (82-101) 11/05/23 04:26 MCH 27.5 pg (27-33) 11/05/23 04:26 MCHC 29.1 g/dL (30-55) L 11/05/23 04:26 RDW 17.2 % (12.1-15.1) H 11/05/23 04:26 Plt Count 115 10^3/cmm (157-399) L 11/05/23 04:26 MPV 11.1 fL (7.4-10.4) H 11/05/23 04:26 Neut % (Auto) 83.0 % 11/05/23 04:26 Lymph % (Auto) 4.2 % 11/05/23 04:26 [place] % (Auto) 8.8 % 11/05/23 04:26 Eos % (Auto) 3.6 % 11/05/23 04:26 Baso % (Auto) 0.3 % 11/05/23 04: Neut # (Auto) 7.22 10^3/uL (1.8-7.7) 11/05/23 04: Lymph # (Auto) 0.4 10^3/uL (0.8-4.8) L 11/05/23 04:26 [place] # (Auto) 0.8 10^3/uL (0.2-0.9) 11/05/23 04: Eos # (Auto) 0.3 10^3/uL (0.0-0.8) 11/05/23 04: Baso # (Auto) 0.0 10^3/uL (0.0-0.1) 11/05/23 04: Nucleated RBC % (auto) 0 % 11/05/23 04: Nucleated RBCs # 0.0 /100WBC 11/05/23 04:26 ESR 83 mm/hr (0-10) H 11/05/23 04:26 Sodium 138 mmol/L (136-145) 11/05/23 04:26 Potassium 6.4 mmol/L (3.5-5.1) H 11/05/23 04:26 Chloride 94 mmol/L (98-107) L 11/05/23 04:26 Carbon Dioxide 32 mmol/L (22-29) H 11/05/23 04:26 Anion Gap 18.4 (5-19) 11/05/23 04:26 BUN 60 mg/dL (6-20) H 11/05/23 04:26 Creatinine 5.8 mg/dL (0.7-1.2) H* 11/05/23 04:26 GFR Calculation 10.3 mL/min (90-130) L 11/05/23 04:26 Glucose 122 mg/dL (65-115) H 11/05/23 04:26 Calculated Osmolality 304 mOsm/kg (285-295) H 11/05/23 04:26 Lactic Acid 1.7 mmol/L (0.5-2.2) 11/05/23 04:26 Calcium 7.6 mg/dL (8.5-10.5) L 11/05/23 04:26 Phosphorus 5.5 mg/dL (2.5-4.5) H 11/05/23 04:26 Magnesium 1.8 mg/dL (1.7-2.3) 11/05/23 04:26 Total Bilirubin 0.5 mg/dL (0.15-1.2) 11/05/23 04:26 AST 19 U/L (0-40) 11/05/23 04:26 ALT 13 U/L (0-41) 11/05/23 04:26 Alkaline Phosphatase 99 U/L (40-130) 11/05/23 04:26 Troponin T Baseline 262 ng/L (0-15) H* 11/05/23 04:26 Troponin T 120 Minute 260.3 ng/L (0-15) H 11/05/23 05:55 Delta Troponin T -1.7 ABS# (0-10) L 11/05/23 05:55 C-Reactive Protein 26.4 mg/L (0.0-4.9) H 11/05/23 04:26 NT-Pro-B Natriuret Pep > 45529 pg/mL (0-125) H 11/05/23 04:26 Total Protein 7.0 g/dL (6.6-8.7) 11/05/23 04:26 Albumin 3.2 g/dL (3.5-5.2) L 11/05/23 04:26 Globulin 3.8 g/dL (1.3-4.6) 11/05/23 04:26 Procalcitonin 0.43 ng/mL (0-0.5) 11/05/23 04:26 Adenovirus (PCR) Not detected (NOT DETECT) 11/05/23 05:01 C. pneumoniae DNA (PCR) Not detected (NOT DETECT) 11/05/23 05:01 Coronavirus 229E (PCR) Not detected (NOT DETECT) 11/05/23 05:01 Human Metapneumovir PCR Not detected (NOT DETECT) 11/05/23 05:01 Influenza A (H1) PCR Not detected (NOT DETECT) 11/05/23 05:01 Influ A (H1/09) PCR Not detected (NOT DETECT) 11/05/23 05:01 Influenza A (H3) PCR Not detected (NOT DETECT) 11/05/23 05:01 Influenza Type A (PCR) Not detected (NOT DETECT) 11/05/23 05:01 Influenza Type B (PCR) Not detected (NOT DETECT) 11/05/23 05:01 M. pneumoniae (PCR) Not detected (NOT DETECT) 11/05/23 05:01 Parainfluenza 1 (PCR) Not detected (NOT DETECT) 11/05/23 05:01 Parainfluenza 2 (PCR) Not detected (NOT DETECT) 11/05/23 05:01 Parainfluenza 3 (PCR) Not detected (NOT DETECT) 11/05/23 05:01 Parainfluenza 4 (PCR) Not detected (NOT DETECT) 11/05/23 05:01 RSV Type A (PCR) Not detected (NOT DETECT) 11/05/23 05:01 RSV Type B (PCR) Not detected (NOT DETECT) 11/05/23 05:01 Entero/Rhino (PCR) Not detected (NOT DETECT) 11/05/23 05:01 SARS-CoV-2 (PCR) Not detected (NOT DETECT) 11/05/23 05:01 Discharge Plan Discharge Patient Disposition: Admitted As Inpatient Admit Provider: Darren Vela Clinical Impression: End-stage renal disease on hemodialysis, Acute hyperkalemia, Cardiac arrest Condition: Critical Coding Level of Care Code ED Crinkling Machine Operator for Patricia Reid
[2023-11-05] MEDS: piperacillin-tazobactam 3.375 GM in sodium chloride 0.9% (plus) 50 ML IV ×3 (06:13→16:57)
[2023-11-05] MEDS: vasopressin 40 UNIT/100 ML PREMIX 12 UNIT IV (06:28)
--- NOTE | 2023-11-05 06:31 | XRR_ITS ---
PROCEDURE INFORMATION: Exam: XR Chest Exam date and time: 11/05/2023 6:30 AM Age: 53 years old Clinical indication: Device placement; Ett placement (vent status); Additional info: Code TECHNIQUE: Imaging protocol: Radiologic exam of the chest. Views: 1 view. COMPARISON: CR (CHEST, ) 11/05/2023 4:40 AM FINDINGS: The thorax is partially obscured by overlying EKG leads and patch. Tubes, catheters and devices: Endotracheal tube terminates 4.8 cm above the adrianna. Central venous catheter terminates in the right atrium. Lungs: Asymmetric elevation of the right hemidiaphragm. Interstitial prominence and mild airspace disease. Pleural spaces: Nonvisualization of the inferolateral aspect of the left hemithorax and left costophrenic angle. No right pleural effusion. Heart/Mediastinum: Borderline cardiomegaly. Bones/joints: Unremarkable. XR/XR chest 1V portable [id number] IMPRESSION: 1. Endotracheal tube terminates 4.8 cm above the adrianna. Central venous catheter terminates in the right atrium. 2. Asymmetric elevation of the right hemidiaphragm. Interstitial prominence and mild airspace disease.
--- NOTE | 2023-11-05 06:31 | ECG_ITS ---
[facility] Test Date: 2023-11-05 Pat Name: Akil Velasco Department: Room: Gender: Male Network Specialist: : 1970 Requested By: Jerman Lopez Order Number: [id number] Chappell MD: Erik Arguelles M.D. Measurements Intervals [place] Rate: 144 P: 0 ME: 0 QRS: 200 QRSD: 120 T: 16 QT: 283 QTc: 438 Interpretive Statements ATRIAL FIBRILLATION WITH RAPID VENTRICULAR RESPONSE WITH ABERRANT CONDUCTION OR VENTRICULAR PREMATURE COMPLEXES RIGHT BUNDLE BRANCH BLOCK [120+ ms QRS DURATION, UPRIGHT V1, 40+ ms S IN I/aVL/V4/V5/V6] LEFT POSTERIOR FASCICULAR BLOCK [QRS AXIS > 109, INFERIOR Q] Compared to ECG 11/05/2023 04:57:10 Aberrant conduction of supraventricular beat(s) now present Ventricular premature complex(es) now present Right bundle-branch block now present Left posterior fascicular block now present Sinus tachycardia no longer present First degree AV block no longer present Electronically Signed On 11-05-2023 13:13:08 CDT by Erik Arguelles M.D. [email or web address]
[2023-11-05] MEDS: midazolam hcl 100 MG/100 ML BAG IV (06:32)
[2023-11-05 06:33] LABS: Erythrocyte Sedimentation Rate 83 mm/hr (0-10)
[2023-11-05 06:41] LABS: ABG PCO2 68.4 mmHg (35-45); ABG PH Result 7.27 (7.35-7.45); Arterial Blood Gas Hematocrit 35.8 % (42-52); Base Excess ABG 2.8 mmol/L (-2.0-2.0); Blood Gas Allen Test Pos; Blood Gas Sample Site Brachial, right; Blood Gas Sample Type Arterial; HCO3 ABG 31.4 mmol/L (22-26); Oxygen Device AMBU; PO2 FiO2 Ratio Arterial Blood 0
[2023-11-05 06:43] LABS: C Reactive Protein 26.4 mg/L (0.0-4.9)
[2023-11-05 06:50] LABS: Procalcitonin 0.43 ng/mL (0-0.5)
[2023-11-05] MEDS: dilTIAZem 100 MG in sodium chloride 0.9% (add-van) 100 ML IV (07:04)
[2023-11-05 07:07] LABS: Adenovirus Not Detected (NOT DETECT); Chlamydia Pneumoniae Not Detected (NOT DETECT); Coronavirus 229E,HKU1,NL63,OC4 Not Detected (NOT DETECT); Human Metapneumovirus Not Detected (NOT DETECT); Human Rhinovirus/Enterovirus Not Detected (NOT DETECT); Influenza A Not Detected (NOT DETECT); Influenza A H1 Not Detected (NOT DETECT); Influenza A H1-2009 Not Detected (NOT DETECT); Influenza A H3 Not Detected (NOT DETECT); Influenza B Not Detected (NOT DETECT); Mycoplasma Pneumoniae Not Detected (NOT DETECT); Parainfluenza Virus Type 1 Not Detected (NOT DETECT); Parainfluenza Virus Type 2 Not Detected (NOT DETECT); Parainfluenza Virus Type 3 Not Detected (NOT DETECT); Parainfluenza Virus Type 4 Not Detected (NOT DETECT); Respiratory Syncytial Virus A Not Detected (NOT DETECT); Respiratory Syncytial Virus B Not Detected (NOT DETECT); SARS-COV-2 Not Detected (NOT DETECT)
[2023-11-05 07:07] LABS: INR 1.38 (0.8-1.2); Partial Thromboplastin Time 34.4 SECONDS (23.9-36.7)
[2023-11-05 07:10] LABS: Troponin 5 2HR 260.3 ng/L (0-15); Troponin 5 2HR Delta -1.7 ABS# (0-10)
--- NOTE | 2023-11-05 07:16 | PC.NURSE ---
SEQUENCE OF CODE 0618-- COMPRESSIONS BEGUN 0620-- 1 EPI ADMINISTERED, PULSE CHECK, CALCIUM CHLORIDE X2 ADMINISTERED 06-- PULSE CHECK, ASYSTOLE, INTUBATED 8 ETT AND 1 EPI ADMINISTERED 06-- SHOCK 120 J, CPR, 1 AMP OF BICARB 0624-- RHYTHM CHECK, HR 137 0625 -- COMPRESSIONS RESUMED, 1 EPI ADMINISTERED 0627-- PULSE ORDERS, MEDS, VITALS POST-CODE 0632-- AMIODARONE 150MG, HR 128, BP 132/99, VERSED AND FENT ORDERED 0640-- BP 102/50, HR 119 0642-- BP 92/53, HR 116 0644-- VASO 0.08 0645-- 80/42, HR 113 0646-- VASO 0.1, 80% 0648-- 1 CC EPI 0649-- 1 CC EPI, HR 96, 140/80, 94%
[2023-11-05 07:21] LABS: Anion Gap 17.8 (5-19); Blood Urea Nitrogen 61 mg/dL (6-20); Calcium 7.9 mg/dL (8.5-10.5); Carbon Dioxide 31 mmol/L (22-29); Chloride 94 mmol/L (98-107); Creatinine Clr Calc Pharmacy 18.4814; Glomerular Filtration Rate 9.7 mL/min (90-130); Glucose 179 mg/dL (65-115); Magnesium 1.8 mg/dL (1.7-2.3); Osmolality Calculated 306 mOsm/kg (285-295); Potassium 5.8 mmol/L (3.5-5.1); Sodium 137 mmol/L (136-145)
[2023-11-05] MEDS: fentaNYL 1,000 MCG/100 ML BAG 15 MCG (07:42)
[2023-11-05] MEDS: amiodarone 150 MG/100 ML PREMIX 33.2999999999999972 MG (07:44)
[2023-11-05] MEDS: norepinephrine 4 MG/250 ML BAG 37.5 MG (07:44)
[2023-11-05] MEDS: midazolam hcl 100 MG/100 ML BAG (07:44)
[2023-11-05] MEDS: vasopressin 40 UNIT/100 ML PREMIX 6 UNIT (07:44)
[2023-11-05] MEDS: linezolid premix 600 MG/300 ML PREMIX 300 MG IV ×2 (08:00→20:25)
[2023-11-05] MEDS: DILTIAZEM 100 MG (08:01)
[2023-11-05] MEDS: ADV (08:01)
--- NOTE | 2023-11-05 08:04 | P.HP_ITS ---
Providers/Chief Complaint 2 Admitting Physician: Darren Vela MD Primary Care Provider: Sulma Wetzel MD Chief Complaint: CP History of Present Illness Akil Velasco is a 53 year old male with history of significant vascular disease with recent coronary stenting presenting to the emergency department from home with chest pain. Fever was also noted. Last [employer] procedure was October 16. He also receives paracentesis for significant ascites, and last paracentesis October 28. When I went to examine the patient he was already intubated. Sequence of events, as related to me was he came into the emergency department with chest discomfort. He was short of breath. He had been getting dialysis regularly, typically on Sunday. He had not been reporting any abdominal pain. He had not had any nausea or vomiting. This history was obtained from the emergency department physician, and his . I called his , she related he did not know he had a fever at home. She reports he felt tired yesterday, and not quite right. This morning he started complaining of chest discomfort around 1 or 2 AM. He had indicated he thought it was the orange juice he had drank. Code note is pending but per the emergency department physician verbally, approximately 3 rounds of CPR were given. He received usual protocol, with the addition of amiodarone drip for ventricular fibrillation. Review of Systems 2 General: Reports: ROS unobtainable due to endotracheal tube and ROS unobtainable due to medical condition Medications/Allergies Home Medications Medication Instructions Recorded Confirmed Last Taken Type Wheel Chair #1 ea 08/18/21 11/05/23 11/01/23 Rx ropinirole 0.25 mg tablet 0.25 mg PO BEDTIME PRN Restless 08/22/21 11/05/23 11/01/23 History Leg(S) ondansetron HCl 4 mg tablet 4 mg PO Q4H PRN Nausea 04/11/22 11/05/23 11/01/23 History Compression Stockings #1 ea 04/12/22 11/05/23 11/01/23 Rx [place] boot modification #1 ea 07/17/22 11/05/23 11/01/23 Rx oxycodone 5 mg tablet 5 mg PO Q6H PRN Pain 08/16/22 11/05/23 11/01/23 History sevelamer carbonate 800 mg tablet See Rx Instructions .Route .COMPLEX 09/18/22 11/05/23 11/01/23 History B-complex with vitamin C 1 cap PO DAILY 10/16/22 11/05/23 11/01/23 History albuterol sulfate 90 mcg/actuation 2 puff inhalation Q6H PRN 10/16/22 11/05/23 11/01/23 History aerosol inhaler Shortness Of Breath diphenhydramine HCl 25 mg tablet 25 mg PO DAILY PRN itching 10/16/22 11/05/23 11/01/23 History (Benadryl Allergy) hydroxyzine HCl 25 mg tablet 25 mg PO Q6H PRN Anxiety 10/16/22 11/05/23 11/01/23 History polyethylene glycol 3350 17 17 g PO BID PRN Constipation 10/16/22 11/05/23 11/01/23 History gram/dose oral powder (Miralax) venlafaxine 75 mg capsule,extended 75 mg PO QAM 10/16/22 11/05/23 11/01/23 History release 24 hr (Effexor XR) Prevalon boot #1 ea 11/21/22 11/05/23 11/01/23 Rx diabetic shoes with 3 heat molded #1 ea 12/15/22 11/05/23 11/01/23 Rx insoles gabapentin 300 mg capsule 300 mg PO TID PRN NERVE PAIN 01/02/23 11/05/23 11/01/23 History vit B,C-folic ac 800 mcg-zinc 12.5 1 tab PO DAILY 05/07/23 11/05/23 11/01/23 History mg-selen-D3 2,000 unit-vit E tablet (RenaPlex-D) atorvastatin 80 mg tablet 80 mg PO DAILY 07/02/23 11/05/23 11/01/23 History clopidogrel 75 mg tablet 75 mg PO DAILY 07/02/23 11/05/23 11/01/23 History pantoprazole 40 mg tablet,delayed 40 mg PO DAILY 07/02/23 11/05/23 11/01/23 History release metoprolol succinate 25 mg 25 mg PO DAILY 07/27/23 11/05/23 11/01/23 History tablet,extended release 24 hr mirtazapine 30 mg disintegrating 30 mg PO DAILY 07/27/23 11/05/23 11/01/23 History tablet nitroglycerin 0.1 mg/hr 1 patch transdermal DAILY 07/27/23 11/05/23 11/01/23 History transdermal 24 hour patch Garlic Edta 1 tab PO BID 10/16/23 11/05/23 11/01/23 History arginine 7 gram-glutam 7 1 packet PO BID 10/16/23 11/05/23 11/01/23 History gram-CaHMB 1.5 [id number]-min oral pwd pkt (Mehdi (with collagen)) sodium zirconium cyclosilicate 10 See Rx Instructions .Route .COMPLEX 10/16/23 11/05/23 11/01/23 History gram oral powder packet (Lokelma) trazodone 50 mg tablet 50 mg PO BEDTIME 10/16/23 11/05/23 11/01/23 History aspirin 81 mg tablet,delayed 81 mg PO DAILY 30 days #30 tabs 10/18/23 11/05/23 11/01/23 Rx release midodrine 5 mg tablet 10 mg (2 x 5 mg) PO TID 30 days 10/18/23 11/05/23 11/01/23 Rx #180 tabs brexpiprazole 0.5 mg tablet 0.5 mg PO QAM 11/05/23 11/05/23 Unknown History (Rexulti) cilostazol 50 mg tablet 50 mg PO DAILY 11/05/23 11/05/23 Unknown History nitroglycerin 0.4 mg sublingual 0.4 mg buccal DAILY PRN Chest Pain 11/05/23 11/05/23 Unknown History tablet Allergies Allergy/AdvReac Type Severity Reaction Status Date / Time vancomycin Allergy Unknown ADR-Itching Verified 11/02/23 10:13 ,Rash linezolid [From Zyvox] Allergy tendonitis Verified 11/02/23 10:13 ciprofloxacin [From Cipro] AdvReac Severe Tendonitis Verified 11/02/23 10:13 dextrose 5 % in water Allergy Unknown tendonitis Uncoded 11/02/23 10:13 PFSH Acute 2 PFSH: Medical History (Updated 11/05/23 @ 09:14 by Darren Vela MD) Uremia Chronic osteomyelitis Type 2 diabetes mellitus 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, limited to breakdown of skin Chronic osteomyelitis of right foot Foot osteomyelitis, right Osteomyelitis Cellulitis Necrosis of surgical wound Foot osteomyelitis, left Hypovolemic shock Anemia of chronic disease Ulcer of sacral region, stage 1 Gas gangrene Acquired equinovarus deformity of left foot Pre-ulcerative calluses Xerosis of skin 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 Cellulitis Diabetes BMI 50.0-59.9, adult Diabetic foot ulcers Fracture, thoracic vertebra T7-T8 Osteomyelitis Non-pressure chronic ulcer of other part of right foot with necrosis of muscle Chronic venous insufficiency Chronic dysfunction of both eustachian tubes Lung nodule Hypoglycemia unawareness associated with type 2 diabetes mellitus Chronic ulcer of left foot with fat layer exposed Non-healing ulcer of right foot with fat layer exposed Vitamin D deficiency First degree heart block COPD (chronic obstructive pulmonary disease) Hypertension Urinary retention History of renal cell carcinoma Morbid obesity with BMI of 40.0-44.9, adult Cardiac arrest Anemia Pneumonia due to 2019-nCoV (~07/2020) Renal cell carcinoma History bilateral renal cell carcinoma 2007 then recurrence on the contralateral side 2011. No recurrence for long-term follow-up with some suspicion on CT scan April 2020. CHF (congestive heart failure), NYHA class III Chronic respiratory failure with hypoxia and hypercapnia Obesity hypoventilation syndrome Metabolic alkalosis Accelerated hypertension Restrictive lung disease Obstructive sleep apnea non compliant with home bipap/cpap Fracture of fourth metatarsal bone of left foot Type 2 diabetes mellitus with diabetic polyneuropathy PVD (peripheral vascular disease) Fracture of fifth metatarsal bone of left foot Neuropathy Surgical History Status post below-knee amputation of left lower extremity History of left below knee amputation History of cataract surgery H/O wisdom tooth extraction Hx of lymph node excision H/O partial nephrectomy bilateral Family History Father , at age 65 Diabetes Cancer Metastatic prostate cancer to liver Mother , at age 72 Diabetes Grandfather Diabetes Cancer Other Anemia Hyperlipidemia Social History Smoking and tobacco/nicotine status: never used tobacco/nicotine Second hand smoke exposure: Yes Alcohol intake: current Alcohol intake frequency: holidays/special occasions only Substance/Drug Use: never Lives independently: Yes Household members: spouse Housing: House Marital status: service: No Current occupational status: retired Pets and animals: Yes Do you think of yourself as: Straight/Heterosexual Current gender identity: Male Vitals/I&O/Wt Last Vital Signs Temp 103.4 F H 11/05/23 04:15 Pulse 105 H 11/05/23 08:03 Resp 16 11/05/23 08:03 BP 91/66 11/05/23 08:03 Pulse Ox 94 11/05/23 08:03 O2 Del Method Mechanical Ventilation 11/05/23 08:03 O2 Flow Rate 4 11/05/23 06:07 FiO2 100 11/05/23 07:57 11/04/23 11/05/23 11/05/23 22:59 06:59 14:59 Intake Total 54.167 / 54.167 50.5 / 50.5 Balance 54.167 / 54.167 50.5 / 50.5 Weight last 48 hrs Weight 113.398 kg Physical Exam 2 Narrative: General exam is a sedated male, on ventilator. HEENT: Atraumatic and normocephalic. Oropharynx with endotracheal tube. Oropharyngeal tube noted Neck is supple no lymphadenopathy thyromegaly Cardiovascular regular rate and rhythm with a 3/6 systolic murmur Lungs diminished breath sounds bilaterally. No wheezes Abdomen is distended. Umbilical hernia easily reducible is noted. Fluid wave is noted. exam demonstrates Melgar with no significant urine Extremities right lower extremity with multiple chronic ulcerations, none appear acutely infected. Pulses difficult to feel. Left with below the knee amputation. Skin no rash Neuro: Sedated Urinary Catheter Management: Melgar: Cath Placed During This Visit: yes Urinary Catheter Date of Insertion: 11/05/23 Urinary Catheter Time of Insertion: 07:48 Sepsis: Is patient septic: Yes Date exam was performed: 11/05/23 Time exam was performed: 07:10 Data 11/05/23 04:26 11/05/23 06:42 Other Labs: INR 1.38 ABG demonstrates pH 7.27, pCO2 68, pO2 105. 100% FiO2 with PEEP of 9 on assist- control Lactic acid 1.7 Calcium 7.9, albumin 3.2 Troponin 262 with repeat of 260 BNP greater than 70,000 CRP 26.4 Procalcitonin 0.43 Urinalysis ordered but may not be able to be completed as patient does not produce much urine Blood cultures ordered Phosphorus 6.0 Magnesium 1.8 LFTs normal Respiratory panel negative TSH ordered Chest x-ray which I reviewed demonstrates pulmonary edema, cardiomegaly, endotracheal tube at 4.8 cm above adrianna and central line with appropriate placement. Oropharyngeal tube also noted. Initial EKG demonstrates sinus tachycardia, first-degree AV block, right bundle alondra block, poor R wave progression EKG later, third EKG demonstrates atrial fibrillation with rapid ventricular rate, rate around 140. Right bundle branch block is again noted. I have ordered another EKG as patient appears to be currently sinus rhythm. Micro: Microbiology 11/05/23 05:40 Blood Culture - Preliminary Blood SPECIMEN COLLECTED 11/05/23 05:35 Blood Culture - Preliminary Blood SPECIMEN COLLECTED A&P Assessment and plan (1) Chest pain: Original complaint of the patient was chest discomfort Troponin is elevated but trend is not concerning Must still be concerned about coronary disease with recent stenting, October 16 with drug-eluting stent as well as angioplasty. See report for details. Heparin drip Echocardiogram, limited Cardiology consult Continue Plavix Aspirin Statin Qualifiers: Chest pain type: unspecified Qualified Code(s): R07.9 - Chest pain, unspecified (2) Acute respiratory failure: Postcode Patient with acute respiratory failure Endotracheal tube to be inserted 1 more centimeter, OG tube will also need x- ray. Repeat chest x-ray Wean ventilator as tolerated When settings are stable repeat ABG (3) Cardiac arrest: Status post V-fib cardiac arrest ROSC achieved Currently on amiodarone drip Awaiting code summary report (4) Ventricular fibrillation: Potassium being corrected Nephrology consult Amiodarone Cannot rule ischemic etiology (5) Atrial fibrillation: Placed on amiodarone I have discontinued Cardizem that was initiated in the emergency department. (6) Hypotension: Patient with severe hypotension This most likely is secondary to cardiac arrest as well as sepsis Currently on norepinephrine, fixed dose vasopressin Given 250 cc of fluid (7) Sepsis: See findings under hypotension IV antibiotics consisting of linezolid, Zosyn Blood cultures Obtain diagnostic paracentesis, for concern of SBP as he receives intermittent paracentesis Urine culture if urine can be obtained (8) Type 2 diabetes mellitus: It does not appear like he is on any insulin Monitor blood sugars No sliding scale for now as concern of potential for hypoglycemia (9) Abnormal TSH: Repeat TSH Plan End-stage renal disease on hemodialysis with hyperkalemia. He received calcium. He has received insulin plus glucose. Nephrology consult. Multiple other medical problems as outlined in past medical history Full code Heparin will suffice for DVT prophylaxis Attestations 2 Medical Necessity Statement*: Will need greater than 2 midnight stay for evaluation and treatment of respiratory failure, chest discomfort, status postcode, hyperkalemia, sepsis, hypotension. Critical Care Time: The high probability of a clinically significant, sudden or life threatening deterioration of the patient's [pulmonary, cardiac, infectious disease] s ystem(s) required my full and direct attention, intervention and personal management. The critical care time is as shown. This time is in addition to time spent performing any reported procedures but includes the following: [x] Data and vital sign review and interpretation [x] Patient assessment, examination and intervention [x] Documentation [x] Medication orders and management Critical Care Time (min): 68 Coding Level of Care Code Critical Care >/= 30 minutes Critical care time (in minutes): 68 The high probability of a clinically significant, sudden or life threatening deterioration, as referenced in this documentation, required my full and direct attention, intervention and personal management. The critical care time shown is in addition to time spent performing any reported separately billable procedures and includes the following: [x] Data and vital sign review and interpretation [x ] Patient assessment, examination and intervention [x] Medication orders and management [x] Patient/Family updates as able [x] Care Coordination and Documentation. Diagnoses Chest pain R07.9 Chest pain type: unspecified Acute respiratory failure J96.00 Cardiac arrest I46.9 Ventricular fibrillation I49.01 Atrial fibrillation I48.91 Hypotension I95.9 Sepsis A41.9 Type 2 diabetes mellitus E11.9 Abnormal TSH R79.89
--- NOTE | 2023-11-05 08:26 | P.CONIM_ITS ---
Providers/Reason For Consult 2 Consulting Physician/Specialty*: SHANICE Kendrick MD/cardiology Reason for Consult*: Patient with V-fib arrest/atherosclerotic heart disease/' recent coronary intervention Attending Physician: Darren Vela MD Primary Care Provider: Sulma Wetzel MD History of Present Illness History of Present Illness Akil Velasco is a 53 year old male with a history of atherosclerotic heart disease, status post multiple PCI, end-stage renal disease, recurrent ascites requiring large-volume paracentesis, and multiple other medical problems, is present with complaints of chest pain. He apparently went into ventricular fibrillation while being in the emergency room. He had 3 rounds of CPR and defibrillation. He also was started on amiodarone drip. He attained ROSC and is currently admitted to the ICU for further evaluation and management. He is currently intubated and sedated. Cardiology consult is requested for further cardiac evaluation and recommendation. Information is mostly from the medical records and from the medical staff. This patient is known to have a longstanding history of atherosclerotic heart disease. Most recently was admitted to the hospital last month with unstable anginal symptoms. Cardiac colorization revealed high-grade in-stent stenosis in the ostium of the left circumflex artery and first obtuse marginal branch artery in the proximal segment. He underwent balloon angioplasty of the ostial circumflex lesion and stenting of the obtuse marginal lesion. He had an uneventful post interventional course. He was discharged home fairly stable condition. Since her hospital discharge, he had large-volume paracentesis x 2-10 L for the first time and 9.8 L the second time. He is getting hemodialysis 3 times a week. He is due for the dialysis tomorrow and are supposed to be getting the repeat paracentesis today?. Based on the information obtained from his , he started having chest pain earlier this morning around 2:00 or so. The nature of the pain and disability is not known. His EKG did not reveal any acute ischemic changes. As per the records, he had some chest pain since the hospital discharge which responded to topical nitrates. Because of the allergies to the nitro patches, he was prescribed nitroglycerin tablet by the PCP. Patient was found to have a temp of 103 in the emergency room. Source of infection is not known at this point. The most recent angiogram findings are as mentioned below. This patient known to have multiple medical problems including type 2 diabetes, diabetic neuropathy, orthostatic hypotension , dyslipidemia recurrent osteomyelitis, peripheral arterial disease, chronic venous stasis, bilateral partial nephrectomy, history of renal current cancer, COPD/obstructive sleep apnea, congestive heart failure, chronic anemia, morbid obesity, questionable compliance to medications etc. Review of Systems 2 Narrative: CONSTITUTIONAL: No fever or chills. EYES: No blurring of vision or other visual disturbances lately. ENT: No hoarseness of voice, auditory disturbances or sore throat. CARDIOVASCULAR: ASHD/congestive heart failure RESPIRATORY: COPD/obstructive sleep apnea GASTROINTESTINAL: Recurrent ascites as mentioned above/possible cirrhosis of the liver GENITOURINARY: End-stage renal disease INTEGUMENTARY: No skin rashes or history of skin cancer. NEURO: No transient ischemic attacks or amaurosis. PSYCHIATRIC: No history of psychosis or major depression. HEMATOLOGIC: History of chronic anemia ENDOCRINE: Type 2 diabetes MUSCULOSKELETAL: No recent joint pain or swelling. ALLERGY/IMMUNOLOGY: As mentioned above. Medications/Allergies Home Medications Medication Instructions Recorded Confirmed Last Taken Type Wheel Chair #1 ea 08/18/21 11/05/23 11/01/23 Rx ropinirole 0.25 mg tablet 0.25 mg PO BEDTIME PRN Restless 08/22/21 11/05/23 11/01/23 History Leg(S) ondansetron HCl 4 mg tablet 4 mg PO Q4H PRN Nausea 04/11/22 11/05/23 11/01/23 History Compression Stockings #1 ea 04/12/22 11/05/23 11/01/23 Rx [place] boot modification #1 ea 07/17/22 11/05/23 11/01/23 Rx oxycodone 5 mg tablet 5 mg PO Q6H PRN Pain 08/16/22 11/05/23 11/01/23 History sevelamer carbonate 800 mg tablet See Rx Instructions .Route .COMPLEX 09/18/22 11/05/23 11/01/23 History B-complex with vitamin C 1 cap PO DAILY 10/16/22 11/05/23 11/01/23 History albuterol sulfate 90 mcg/actuation 2 puff inhalation Q6H PRN 10/16/22 11/05/23 11/01/23 History aerosol inhaler Shortness Of Breath diphenhydramine HCl 25 mg tablet 25 mg PO DAILY PRN itching 10/16/22 11/05/23 11/01/23 History (Benadryl Allergy) hydroxyzine HCl 25 mg tablet 25 mg PO Q6H PRN Anxiety 10/16/22 11/05/23 11/01/23 History polyethylene glycol 3350 17 17 g PO BID PRN Constipation 10/16/22 11/05/23 11/01/23 History gram/dose oral powder (Miralax) venlafaxine 75 mg capsule,extended 75 mg PO QAM 10/16/22 11/05/23 11/01/23 History release 24 hr (Effexor XR) Prevalon boot #1 ea 11/21/22 11/05/23 11/01/23 Rx diabetic shoes with 3 heat molded #1 ea 12/15/22 11/05/23 11/01/23 Rx insoles gabapentin 300 mg capsule 300 mg PO TID PRN NERVE PAIN 01/02/23 11/05/23 11/01/23 History vit B,C-folic ac 800 mcg-zinc 12.5 1 tab PO DAILY 05/07/23 11/05/23 11/01/23 History mg-selen-D3 2,000 unit-vit E tablet (RenaPlex-D) atorvastatin 80 mg tablet 80 mg PO DAILY 07/02/23 11/05/23 11/01/23 History clopidogrel 75 mg tablet 75 mg PO DAILY 07/02/23 11/05/23 11/01/23 History pantoprazole 40 mg tablet,delayed 40 mg PO DAILY 07/02/23 11/05/23 11/01/23 History release metoprolol succinate 25 mg 25 mg PO DAILY 07/27/23 11/05/23 11/01/23 History tablet,extended release 24 hr mirtazapine 30 mg disintegrating 30 mg PO DAILY 07/27/23 11/05/23 11/01/23 History tablet nitroglycerin 0.1 mg/hr 1 patch transdermal DAILY 07/27/23 11/05/23 11/01/23 History transdermal 24 hour patch Garlic Edta 1 tab PO BID 10/16/23 11/05/23 11/01/23 History arginine 7 gram-glutam 7 1 packet PO BID 10/16/23 11/05/23 11/01/23 History gram-CaHMB 1.5 iabk-ymndb-gr-min oral pwd pkt (Mehdi (with collagen)) sodium zirconium cyclosilicate 10 See Rx Instructions .Route .COMPLEX 10/16/23 11/05/23 11/01/23 History gram oral powder packet (Lokelma) trazodone 50 mg tablet 50 mg PO BEDTIME 10/16/23 11/05/23 11/01/23 History aspirin 81 mg tablet,delayed 81 mg PO DAILY 30 days #30 tabs 10/18/23 11/05/23 11/01/23 Rx release midodrine 5 mg tablet 10 mg (2 x 5 mg) PO TID 30 days 10/18/23 11/05/23 11/01/23 Rx #180 tabs brexpiprazole 0.5 mg tablet 0.5 mg PO QAM 11/05/23 11/05/23 Unknown History (Rexulti) cilostazol 50 mg tablet 50 mg PO DAILY 11/05/23 11/05/23 Unknown History nitroglycerin 0.4 mg sublingual 0.4 mg buccal DAILY PRN Chest Pain 11/05/23 11/05/23 Unknown History tablet Allergies Allergy/AdvReac Type Severity Reaction Status Date / Time vancomycin Allergy Unknown ADR-Itching Verified 11/02/23 10:13 ,Rash linezolid [From Zyvox] Allergy tendonitis Verified 11/02/23 10:13 ciprofloxacin [From Cipro] AdvReac Severe Tendonitis Verified 11/02/23 10:13 dextrose 5 % in water Allergy Unknown tendonitis Uncoded 11/02/23 10:13 Current Medications Generic Name Dose Route Start Last Admin Trade Name Freq PRN Reason Stop Dose Admin Linezolid 600 mg in 300 mls @ 300 mls/hr 11/05/23 07:45 11/05/23 08:00 Zyvox Premix IV 11/05/23 08:44 300 mls/hr ONCE ONE Administration Protocol PFSH Acute 2 PFSH: Medical History (Updated 11/05/23 @ 10:16 by Shirin Kendrick MD) Uremia Chronic osteomyelitis Type 2 diabetes mellitus 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, limited to breakdown of skin Chronic osteomyelitis of right foot Foot osteomyelitis, right Osteomyelitis Cellulitis Necrosis of surgical wound Foot osteomyelitis, left Hypovolemic shock Anemia of chronic disease Ulcer of sacral region, stage 1 Gas gangrene Acquired equinovarus deformity of left foot Pre-ulcerative calluses Xerosis of skin 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 Cellulitis Diabetes BMI 50.0-59.9, adult Diabetic foot ulcers Fracture, thoracic vertebra T7-T8 Osteomyelitis Non-pressure chronic ulcer of other part of right foot with necrosis of muscle Chronic venous insufficiency Chronic dysfunction of both eustachian tubes Lung nodule Hypoglycemia unawareness associated with type 2 diabetes mellitus Chronic ulcer of left foot with fat layer exposed Non-healing ulcer of right foot with fat layer exposed Vitamin D deficiency First degree heart block COPD (chronic obstructive pulmonary disease) Hypertension Urinary retention History of renal cell carcinoma Morbid obesity with BMI of 40.0-44.9, adult Cardiac arrest Anemia Pneumonia due to 2019-nCoV (~07/2020) Renal cell carcinoma History bilateral renal cell carcinoma 2007 then recurrence on the contralateral side 2011. No recurrence for long-term follow-up with some suspicion on CT scan April 2020. CHF (congestive heart failure), NYHA class III Chronic respiratory failure with hypoxia and hypercapnia Obesity hypoventilation syndrome Metabolic alkalosis Accelerated hypertension Restrictive lung disease Obstructive sleep apnea non compliant with home bipap/cpap Fracture of fourth metatarsal bone of left foot Type 2 diabetes mellitus with diabetic polyneuropathy PVD (peripheral vascular disease) Fracture of fifth metatarsal bone of left foot Neuropathy Surgical History Status post below-knee amputation of left lower extremity History of left below knee amputation History of cataract surgery H/O wisdom tooth extraction Hx of lymph node excision H/O partial nephrectomy bilateral Family History Father , at age 65 Diabetes Cancer Metastatic prostate cancer to liver Mother , at age 72 Diabetes Grandfather Diabetes Cancer Other Anemia Hyperlipidemia Social History Smoking and tobacco/nicotine status: never used tobacco/nicotine Second hand smoke exposure: Yes Alcohol intake: current Alcohol intake frequency: holidays/special occasions only Substance/Drug Use: never Lives independently: Yes Household members: spouse Housing: House Marital status: service: No Current occupational status: retired Pets and animals: Yes Do you think of yourself as: Straight/Heterosexual Current gender identity: Male Vitals/I&O/Wt Last Vital Signs Temp 103.4 F H 11/05/23 04:15 Pulse 105 H 11/05/23 08:03 Resp 16 11/05/23 08:03 BP 91/66 11/05/23 08:03 Pulse Ox 94 11/05/23 08:03 O2 Del Method Mechanical Ventilation 11/05/23 08:03 O2 Flow Rate 4 11/05/23 06:07 FiO2 100 11/05/23 07:57 11/04/23 11/05/23 11/05/23 22:59 06:59 14:59 Intake Total 54.167 / 54.167 50.5 / 50.5 Balance 54.167 / 54.167 50.5 / 50.5 Weight last 48 hrs Weight 250 lb Physical Exam 2 Narrative: GENERAL: The patient is intubated and sedated HEENT: Mild pallor with no icterus or lymphadenopathy.Oral cavity: There are no mucous membrane lesions. NECK: Trachea appears to be central. No masses noted. No JVD or thyromegaly appreciated. RESPIRATORY: Chest is symmetrical. No intercostals muscle retraction or any accessory muscle activation. There is no chest wall tenderness. Breath sounds are heard bilaterally. No rales or rhonchi heard. No evidence of any consolidation. BREASTS: Deferred. HEART: The heart sounds are normal. No S3 or S4. Ejection systolic murmur grade 3 or 6 in the aortic area. No diastolic murmurs. ABDOMEN: No vessel pulsations or distention. No tenderness. No organomegaly appreciated. Bowel sounds are normally heard. : Deferred. RECTAL: Deferred. LYMPHATIC: No lymphadenopathy noted in the neck. EXTREMITIES: Below-knee amputation on the left side. Features of chronic venous stasis on the right side with a peripheral cyanosis. The dorsalis pedis and posterior pulses are very weak. Superficial ulcers with a black eschar is noted in the right leg MUSCULOSKELETAL: No acute joint deformities or swelling SKIN: There are no significant rashes or ecchymosis NEUROPSYCHIATRIC: The patient is alert and oriented x3. Appears to be in a good mood. No tremors or rigidity noted. Urinary Catheter Management: Melgar: Cath Placed During This Visit: yes Urinary Catheter Date of Insertion: 11/05/23 Urinary Catheter Time of Insertion: 07:48 Data 11/05/23 04:26 11/05/23 09:00 Other Labs: Laboratory Last Values WBC 8.71 10^3/uL (3.29-11.43) 11/05/23 04:26 RBC 3.85 10^6/uL (3.85-5.65) 11/05/23 04:26 Hgb 10.60 g/dL (11.27-16.99) L 11/05/23 04:26 Hct 36.4 % (37-53) L 11/05/23 04:26 MCV 94.5 fl (82-101) 11/05/23 04:26 MCH 27.5 pg (27-33) 11/05/23 04:26 MCHC 29.1 g/dL (30-55) L 11/05/23 04:26 RDW 17.2 % (12.1-15.1) H 11/05/23 04:26 Plt Count 115 10^3/cmm (157-399) L 11/05/23 04:26 MPV 11.1 fL (7.4-10.4) H 11/05/23 04:26 Neut % (Auto) 83.0 % 11/05/23 04:26 Lymph % (Auto) 4.2 % 11/05/23 04:26 [place] % (Auto) 8.8 % 11/05/23 04:26 Eos % (Auto) 3.6 % 11/05/23 04:26 Baso % (Auto) 0.3 % 11/05/23 04:26 Neut # (Auto) 7.22 10^3/uL (1.8-7.7) 11/05/23 04:26 Lymph # (Auto) 0.4 10^3/uL (0.8-4.8) L 11/05/23 04:26 [place] # (Auto) 0.8 10^3/uL (0.2-0.9) 11/05/23 04:26 Eos # (Auto) 0.3 10^3/uL (0.0-0.8) 11/05/23 04:26 Baso # (Auto) 0.0 10^3/uL (0.0-0.1) 11/05/23 04:26 Nucleated RBC % (auto) 0 % 11/05/23 04:26 Nucleated RBCs # 0.0 /100WBC 11/05/23 04:26 ESR 83 mm/hr (0-10) H 11/05/23 04:26 PT 17.40 SECONDS (12.1-14.9) H 11/05/23 06:41 INR 1.38 (0.8-1.2) H 11/05/23 06:41 APTT 34.4 SECONDS (23.9-36.7) 11/05/23 06:41 Specimen Type Arterial 11/05/23 06:35 Sample Site Brachial, right 11/05/23 06:35 ABG pH 7.27 (7.35-7.45) L 11/05/23 06:35 ABG pCO2 68.4 mmHg (35-45) H* 11/05/23 06:35 ABG pO2 105.0 mmHg (80.0-100.0) H 11/05/23 06:35 ABG PO2/FiO2 Ratio 0 11/05/23 06:35 ABG HCO3 31.4 mmol/L (22-26) H 11/05/23 06:35 ABG Base Excess 2.8 mmol/L (-2.0-2.0) H 11/05/23 06:35 Jesus Test Pos 11/05/23 06:35 Hematocrit 35.8 % (42-52) L 11/05/23 06:35 O2 Delivery Device Ambu 11/05/23 06:35 FiO2 100.0 % 11/05/23 06:35 Cover Remover ID [email or web address] 11/05/23 06:35 Sodium 137 mmol/L (136-145) 11/05/23 06:42 Potassium 5.8 mmol/L (3.5-5.1) H 11/05/23 06:42 Chloride 94 mmol/L (98-107) L 11/05/23 06:42 Carbon Dioxide 31 mmol/L (22-29) H 11/05/23 06:42 Anion Gap 17.8 (5-19) 11/05/23 06:42 BUN 61 mg/dL (6-20) H 11/05/23 06:42 Creatinine 6.1 mg/dL (0.7-1.2) H* 11/05/23 06:42 GFR Calculation 9.7 mL/min (90-130) L 11/05/23 06:42 Glucose 179 mg/dL (65-115) H 11/05/23 06:42 Calculated Osmolality 306 mOsm/kg (285-295) H 11/05/23 06:42 Lactic Acid 1.7 mmol/L (0.5-2.2) 11/05/23 04:26 Calcium 7.9 mg/dL (8.5-10.5) L 11/05/23 06:42 Phosphorus 6.0 mg/dL (2.5-4.5) H 11/05/23 06:42 Magnesium 1.8 mg/dL (1.7-2.3) 11/05/23 06:42 Total Bilirubin 0.5 mg/dL (0.15-1.2) 11/05/23 04:26 AST 19 U/L (0-40) 11/05/23 04:26 ALT 13 U/L (0-41) 11/05/23 04:26 Alkaline Phosphatase 99 U/L (40-130) 11/05/23 04:26 Troponin T Baseline 262 ng/L (0-15) H* 11/05/23 04:26 Troponin T 120 Minute 260.3 ng/L (0-15) H 11/05/23 05:55 Delta Troponin T -1.7 ABS# (0-10) L 11/05/23 05:55 C-Reactive Protein 26.4 mg/L (0.0-4.9) H 11/05/23 04:26 NT-Pro-B Natriuret Pep > 80477 pg/mL (0-125) H 11/05/23 04:26 Total Protein 7.0 g/dL (6.6-8.7) 11/05/23 04:26 Albumin 3.2 g/dL (3.5-5.2) L 11/05/23 04:26 Globulin 3.8 g/dL (1.3-4.6) 11/05/23 04:26 Procalcitonin 0.43 ng/mL (0-0.5) 11/05/23 04:26 Adenovirus (PCR) Not detected (NOT DETECT) 11/05/23 05:01 C. pneumoniae DNA (PCR) Not detected (NOT DETECT) 11/05/23 05:01 Coronavirus 229E (PCR) Not detected (NOT DETECT) 11/05/23 05:01 Human Metapneumovir PCR Not detected (NOT DETECT) 11/05/23 05:01 Influenza A (H1) PCR Not detected (NOT DETECT) 11/05/23 05:01 Influ A (H1/09) PCR Not detected (NOT DETECT) 11/05/23 05:01 Influenza A (H3) PCR Not detected (NOT DETECT) 11/05/23 05:01 Influenza Type A (PCR) Not detected (NOT DETECT) 11/05/23 05:01 Influenza Type B (PCR) Not detected (NOT DETECT) 11/05/23 05:01 M. pneumoniae (PCR) Not detected (NOT DETECT) 11/05/23 05:01 Parainfluenza 1 (PCR) Not detected (NOT DETECT) 11/05/23 05:01 Parainfluenza 2 (PCR) Not detected (NOT DETECT) 11/05/23 05:01 Parainfluenza 3 (PCR) Not detected (NOT DETECT) 11/05/23 05:01 Parainfluenza 4 (PCR) Not detected (NOT DETECT) 11/05/23 05:01 RSV Type A (PCR) Not detected (NOT DETECT) 11/05/23 05:01 RSV Type B (PCR) Not detected (NOT DETECT) 11/05/23 05:01 Entero/Rhino (PCR) Not detected (NOT DETECT) 11/05/23 05:01 SARS-CoV-2 (PCR) Not detected (NOT DETECT) 11/05/23 05:01 Micro: Microbiology 11/05/23 05:40 Blood Culture - Preliminary Blood SPECIMEN COLLECTED 11/05/23 05:35 Blood Culture - Preliminary Blood SPECIMEN COLLECTED Other data: The EKG from today, 11/05/2023 revealed Atrial fibrillation with rapid ventricular rate. Bundle branch block pattern. Left posterior fascicular block. Non specific T wave changes. Cardiac catheterization on 10/16/2023 Left Main has patent prior stent. Has bifurcation stenting and in distal vessel stent has some in-stent restenosis. * Left Anterior Descending has patent prior stent in the proximal segment. Post stent there is another moderate 50-60% stenosis. * Ostial left circumflex artery, bifurcation stent has severe ISR with 95-99% stenosis. OM1 is a medium to large sized vessel with severe 80% stenosis.. * Right Coronary Artery has diffuse moderate disease. * Coronary angiography shows right dominance. Echocardiogram on 10/16/2023 LV systolic function is normal with EF of 50 to 55%. RV is dilated and moderate to severely hypokinetic. Biatrial dilation Mild mitral regurgitation Moderate to severe aortic stenosis. Mild tricuspid regurgitation Mild pulmonary hypertension IVC is dilated. Accuate comparison with prior echocardiogram not possible because of limited quality images on previous echocardiogram. However finding of moderate to severe aortic stenosis is new. A&P Assessment and plan (1) Ventricular fibrillation: The etiology is not clear. In view of the history of chest pain, possibility of coronary ischemia leading to ventricular fibrillation in the setting of multiple other medical problems is a strong consideration. We may obtain serial cardiac enzymes to evaluate for his myocardial infarction. Patient may be continued on the IV amiodarone. A limited 2D echocardiogram to be helpful to evaluate LV function and rule out any other pathology. (2) Atherosclerotic heart disease of [place] coronary artery with other forms of angina pectoris: Possibility of stent thrombosis or progression of disease in the other vessels are considerations. This may need to be further evaluated. The most recent cardiac catheterization data as mentioned above. Patient may require repeat angiogram to reevaluate the arteries and then decide on management. (3) Type 2 diabetes mellitus: Aggressive management of the diabetes would be appropriate. 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 Dialysis schedule as per the nephrology service. (5) Anemia: Management as per the primary. Qualifiers: Anemia type: iron deficiency Iron deficiency anemia type: other iron deficiency Qualified Code(s): D50.8 - Other iron deficiency anemias (6) Acute and chronic respiratory failure with hypoxia: Patient is intubated and sedated. Management as per the primary (7) Atrial fibrillation: Patient was started on IV heparin which may be continued. Also may continue on the amiodarone. Cardizem was discontinued because of the hypotension. Qualifiers: Atrial fibrillation type: unspecified Qualified Code(s): I48.91 - Unspecified atrial fibrillation (8) Ascites: Consider repeat paracentesis Qualifiers: Ascites type: other type Qualified Code(s): R18.8 - Other ascites (9) Hypotension: Patient is on IV vasopressors. This may be continued. Elevated today echocardiac would be helpful to evaluate LV function and rule out any other pathology. Qualifiers: Hypotension type: idiopathic hypotension Qualified Code(s): I95.0 - Idiopathic hypotension Plan Based on the results of the above tests and the patient's clinical progress, further recommendations will be made. Thank you for the opportunity to evaluate this patient and make these recommendations Coding Level of Care Code 36763 Diagnoses Ventricular fibrillation I49.01 Atherosclerotic heart disease of [place] coronary artery with other forms of angina pectoris I25.118 Type 2 diabetes mellitus with chronic kidney disease on chronic dialysis, without long-term current use of insulin E11.22; N18.6; Z99.2 Chronic kidney disease stage: on chronic dialysis Diabetes mellitus complication detail: with chronic kidney disease Diabetes mellitus complication status: with kidney complications Diabetes mellitus prison insulin use: without prison use End-stage renal disease on hemodialysis N18.6; Z99.2 Other iron deficiency anemia D50.8 Anemia type: iron deficiency Iron deficiency anemia type: other iron deficiency Acute and chronic respiratory failure with hypoxia J96.21 Atrial fibrillation, unspecified type I48.91 Atrial fibrillation type: unspecified Other ascites R18.8 Ascites type: other type Idiopathic hypotension I95.0 Hypotension type: idiopathic hypotension
--- NOTE | 2023-11-05 08:41 | P.CONIM_ITS ---
Providers/Reason For Consult 2 Consulting Physician/Specialty*: [facility]a/Nephrology Reason for Consult*: ESRD Attending Physician: Darren Vela MD Primary Care Provider: Sulma Wetzel MD History of Present Illness History of Present Illness Akil Velasco is a 53 year old male 53-year-old male with a past medical history of end-stage renal disease on dialysis per TTS schedule peripheral vascular disease, coronary artery disease, with multiple prior stents, hypertension, CHF, diabetes presented to the emergency department due to chest pain. In the emergency department patient had a brief cardiac arrest requiring CPR. Patient was started on amiodarone drip due to V-fib, transferred to ICU, currently intubated on 2 pressors. Review of Systems 2 Narrative: cannot obtain Medications/Allergies Home Medications Medication Instructions Recorded Confirmed Last Taken Type Wheel Chair #1 ea 08/18/21 11/05/23 11/01/23 Rx ropinirole 0.25 mg tablet 0.25 mg PO BEDTIME PRN Restless 08/22/21 11/05/23 11/01/23 History Leg(S) ondansetron HCl 4 mg tablet 4 mg PO Q4H PRN Nausea 04/11/22 11/05/23 11/01/23 History Compression Stockings #1 ea 04/12/22 11/05/23 11/01/23 Rx cher-ae heights boot modification #1 ea 07/17/22 11/05/23 11/01/23 Rx oxycodone 5 mg tablet 5 mg PO Q6H PRN Pain 08/16/22 11/05/23 11/01/23 History sevelamer carbonate 800 mg tablet See Rx Instructions .Route .COMPLEX 09/18/22 11/05/23 11/01/23 History B-complex with vitamin C 1 cap PO DAILY 10/16/22 11/05/23 11/01/23 History albuterol sulfate 90 mcg/actuation 2 puff inhalation Q6H PRN 10/16/22 11/05/23 11/01/23 History aerosol inhaler Shortness Of Breath diphenhydramine HCl 25 mg tablet 25 mg PO DAILY PRN itching 10/16/22 11/05/23 11/01/23 History (Benadryl Allergy) hydroxyzine HCl 25 mg tablet 25 mg PO Q6H PRN Anxiety 0311/05/23 11/01/23 History polyethylene glycol 3350 17 17 g PO BID PRN Constipation 10/16/22 11/05/23 11/01/23 History gram/dose oral powder (Miralax) venlafaxine 75 mg capsule,extended 75 mg PO QAM 10/16/22 11/05/23 11/01/23 History release 24 hr (Effexor XR) Prevalon boot #1 ea 11/21/22 11/05/23 11/01/23 Rx diabetic shoes with 3 heat molded #1 ea 12/15/22 11/05/23 11/01/23 Rx insoles gabapentin 300 mg capsule 300 mg PO TID PRN NERVE PAIN 01/02/23 11/05/23 11/01/23 History vit B,C-folic ac 800 mcg-zinc 12.5 1 tab PO DAILY 05/07/23 11/05/23 11/01/23 History mg-selen-D3 2,000 unit-vit E tablet (RenaPlex-D) atorvastatin 80 mg tablet 80 mg PO DAILY 07/02/23 11/05/23 11/01/23 History clopidogrel 75 mg tablet 75 mg PO DAILY 07/02/23 11/05/23 11/01/23 History pantoprazole 40 mg tablet,delayed 40 mg PO DAILY 07/02/23 11/05/23 11/01/23 History release metoprolol succinate 25 mg 25 mg PO DAILY 07/27/23 11/05/23 11/01/23 History tablet,extended release 24 hr mirtazapine 30 mg disintegrating 30 mg PO DAILY 07/27/23 11/05/23 11/01/23 History tablet nitroglycerin 0.1 mg/hr 1 patch transdermal DAILY 07/27/23 11/05/23 11/01/23 History transdermal 24 hour patch Garlic Edta 1 tab PO BID 10/16/23 11/05/23 11/01/23 History arginine 7 gram-glutam 7 1 packet PO BID 10/16/23 11/05/23 11/01/23 History gram-CaHMB 1.5 [id number]-jpuww-vj-min oral pwd pkt (Mehdi (with collagen)) sodium zirconium cyclosilicate 10 See Rx Instructions .Route .COMPLEX 10/16/23 11/05/23 11/01/23 History gram oral powder packet (Lokelma) trazodone 50 mg tablet 50 mg PO BEDTIME 10/16/23 11/05/23 11/01/23 History aspirin 81 mg tablet,delayed 81 mg PO DAILY 30 days #30 tabs 10/18/23 11/05/23 11/01/23 Rx release midodrine 5 mg tablet 10 mg (2 x 5 mg) PO TID 30 days 10/18/23 11/05/23 11/01/23 Rx #180 tabs brexpiprazole 0.5 mg tablet 0.5 mg PO QAM 11/05/23 11/05/23 Unknown History (Rexulti) cilostazol 50 mg tablet 50 mg PO DAILY 11/05/23 11/05/23 Unknown History nitroglycerin 0.4 mg sublingual 0.4 mg buccal DAILY PRN Chest Pain 11/05/23 11/05/23 Unknown History tablet Allergies Allergy/AdvReac Type Severity Reaction Status Date / Time vancomycin Allergy Unknown ADR-Itching Verified 11/02/23 10:13 ,Rash linezolid [From Zyvox] Allergy tendonitis Verified 11/02/23 10:13 ciprofloxacin [From Cipro] AdvReac Severe Tendonitis Verified 11/02/23 10:13 dextrose 5 % in water Allergy Unknown tendonitis Uncoded 11/02/23 10:13 Current Medications Generic Name Dose Route Start Last Admin Trade Name Freq PRN Reason Stop Dose Admin Linezolid 600 mg in 300 mls @ 300 mls/hr 11/05/23 07:45 11/05/23 08:00 Zyvox Premix IV 11/05/23 08:44 300 mls/hr ONCE ONE Administration Protocol PFSH Acute 2 PFSH: Medical History (Updated 11/05/23 @ 10:16 by Shirin Kendrick MD) Uremia Chronic osteomyelitis Type 2 diabetes mellitus 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, limited to breakdown of skin Chronic osteomyelitis of right foot Foot osteomyelitis, right Osteomyelitis Cellulitis Necrosis of surgical wound Foot osteomyelitis, left Hypovolemic shock Anemia of chronic disease Ulcer of sacral region, stage 1 Gas gangrene Acquired equinovarus deformity of left foot Pre-ulcerative calluses Xerosis of skin 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 Cellulitis Diabetes BMI 50.0-59.9, adult Diabetic foot ulcers Fracture, thoracic vertebra T7-T8 Osteomyelitis Non-pressure chronic ulcer of other part of right foot with necrosis of muscle Chronic venous insufficiency Chronic dysfunction of both eustachian tubes Lung nodule Hypoglycemia unawareness associated with type 2 diabetes mellitus Chronic ulcer of left foot with fat layer exposed Non-healing ulcer of right foot with fat layer exposed Vitamin D deficiency First degree heart block COPD (chronic obstructive pulmonary disease) Hypertension Urinary retention History of renal cell carcinoma Morbid obesity with BMI of 40.0-44.9, adult Cardiac arrest Anemia Pneumonia due to 2019-nCoV (~07/2020) Renal cell carcinoma History bilateral renal cell carcinoma 2007 then recurrence on the contralateral side 2011. No recurrence for long-term follow-up with some suspicion on CT scan April 2020. CHF (congestive heart failure), NYHA class III Chronic respiratory failure with hypoxia and hypercapnia Obesity hypoventilation syndrome Metabolic alkalosis Accelerated hypertension Restrictive lung disease Obstructive sleep apnea non compliant with home bipap/cpap Fracture of fourth metatarsal bone of left foot Type 2 diabetes mellitus with diabetic polyneuropathy PVD (peripheral vascular disease) Fracture of fifth metatarsal bone of left foot Neuropathy Surgical History Status post below-knee amputation of left lower extremity History of left below knee amputation History of cataract surgery H/O wisdom tooth extraction Hx of lymph node excision H/O partial nephrectomy bilateral Family History Father , at age 65 Diabetes Cancer Metastatic prostate cancer to liver Mother , at age 72 Diabetes Grandfather Diabetes Cancer Other Anemia Hyperlipidemia Social History Smoking and tobacco/nicotine status: never used tobacco/nicotine Second hand smoke exposure: Yes Alcohol intake: current Alcohol intake frequency: holidays/special occasions only Substance/Drug Use: never Lives independently: Yes Household members: spouse Housing: House Marital status: service: No Current occupational status: retired Pets and animals: Yes Do you think of yourself as: Straight/Heterosexual Current gender identity: Male Vitals/I&O/Wt Last Vital Signs Temp 103.4 F H 11/05/23 04:15 Pulse 100 11/05/23 08:30 Resp 20 H 11/05/23 08:30 BP 94/59 11/05/23 08:30 Pulse Ox 98 11/05/23 08:30 O2 Del Method Mechanical Ventilation 11/05/23 08:03 O2 Flow Rate 4 11/05/23 06:07 FiO2 100 11/05/23 07:57 11/04/23 11/05/23 11/05/23 22:59 06:59 14:59 Intake Total 54.167 / 54.167 50.5 / 50.5 Balance 54.167 / 54.167 50.5 / 50.5 Weight last 48 hrs Weight 122.725 kg Weight 113.398 kg Physical Exam 2 Narrative: intubated , sedated Urinary Catheter Management: Melgar: Cath Placed During This Visit: yes Urinary Catheter Date of Insertion: 11/05/23 Urinary Catheter Time of Insertion: 07:48 Data 11/05/23 04:26 11/05/23 09:00 Micro: Microbiology 11/05/23 05:40 Blood Culture - Preliminary Blood SPECIMEN COLLECTED 11/05/23 05:35 Blood Culture - Preliminary Blood SPECIMEN COLLECTED A&P Assessment and plan (1) End-stage renal disease on hemodialysis: 1. End-stage renal disease: On TTS schedule as outpatient, now patient is hyperkalemic and status post cardiac arrest. -Patient currently on 2 pressors, due to persistent hyperkalemia will attempt to dialysis with low BFR -Hold off on ultrafiltration today due to low blood pressures and on pressors -Assess daily for HD needs 2. Status post V-fib, ROSC achieved currently on amiodarone and on pressors 3. Chest pain, workup in process 4. Acute on chronic respiratory failure, currently intubated 5. Hyperkalemia: HD as above 6. Possible sepsis: Workup in process. 7. Anemia: Hemoglobin 10.6, monitor, ALBERTO with HD. Patient evaluated using audiovisual cart. Time spent 40 minutes Consult Attestations 2 Medical Necessity Statement: per mark Coding Level of Care Code Acute Code for Chg Fwd Diagnoses End-stage renal disease on hemodialysis N18.6; Z99.2
[2023-11-05] MEDS: clopidogrel 75 mg Tablet PO (09:02)
[2023-11-05] MEDS: atorvastatin 40 mg Tablet 80 MG PO (09:02)
[2023-11-05] MEDS: insulin regular-human 10 UNIT in SYRINGE 1 EACH 0.100000000000000006 UNIT IVP (09:02)
[2023-11-05] MEDS: pantoprazole 40 mg SDV IVP (09:02)
--- NOTE | 2023-11-05 09:15 | XR_ITS ---
WS: [id number] PORTABLE CHEST HISTORY: NG tube placement COMPARISON: Study earlier the same day Nasogastric and endotracheal tubes remain in good position. Nasogastric tube has been placed since th e prior study. RIGHT central line with tip overlying the atrial caval junction. Lung volumes are decreased. Mild pulmonary edema. Additional areas of consolidation are probably atel ectasis greatest along the RIGHT mediastinum. Mild elevation of the RIGHT diaphragm. No pneumothorax. No pleural effusion or pneumothorax. Cardiac size: Obscured by overlying pacer pads and lung disease. Mediastinum/Aorta: Widening due to positioning. No osseous abnormality seen. IMPRESSION: 1. Satisfactory placement of the nasogastric tube. 2. Satisfactory placement endotracheal tube. 3. RIGHT central line in good position. 4. Opacification noted bilaterally. Probably combination of mild pulmonary edema and areas of atelec tasis.
--- NOTE | 2023-11-05 09:16 | US_ITS ---
WS: [id number] ULTRASOUND-GUIDED PARACENTESIS CLINICAL INFORMATION: diagnostic only COMPARISON: None. Procedure Informed consent: The risks, benefits, and alternatives of the procedure were discussed with the riya ent. Verbal and written consent was obtained. Timeout: A timeout was performed to confirm the correct patient, procedure, and site. Preparation: A suitable skin site was identified. The patient was prepped and draped in usual sterile fashion. Lidocaine 1% was used for local anesthesia. Catheter: 4 Georgian One-step Yueh catheter. Side: RIGHT lower quadrant. Fluid Volume: 60 ml Color: Blood-tinged yellow Complications: None. IMPRESSION: 1. Uncomplicated ultrasound-guided paracentesis. 2. Removal of 60 cc for diagnostic purposes 3. Fluid sent for requested diagnostic tests.
--- NOTE | 2023-11-05 09:19 | ECG_ITS ---
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 Measurements Intervals Norman Rate: 91 P: 36 OH: 156 QRS: 149 QRSD: 127 T: 36 QT: 384 QTc: 473 Interpretive Statements SINUS RHYTHM WITH MARKED SINUS ARRHYTHMIA RIGHT BUNDLE BRANCH BLOCK [120+ ms QRS DURATION, UPRIGHT V1, 40+ ms S IN I/aVL/V4/V5/V6] LEFT POSTERIOR FASCICULAR BLOCK [QRS AXIS > 109, INFERIOR Q] Compared to ECG 11/05/2023 06:31:45 Atrial fibrillation no longer present Aberrant conduction of supraventricular beat(s) no longer present Ventricular premature complex(es) no longer present Electronically Signed On 11-05-2023 13:19:58 CDT by Erik Arguelles M.D. [email or web address]
--- NOTE | 2023-11-05 09:28 | USCV_ITS ---
Akil Velasco Age: 53 Gender: M : 1970 Exam Date: 11/05/2023 11:27 Ordering Phys: Darren Vela MD Technologist: Exam Location: [facility] – [place] Indication: non rheumatic AOV stenosis BP: 101 / 67 HR: Rhythm: Sinus Technical Quality: Adequate MEASUREMENTS (Male / Female) Normal Values 2D ECHO LVOT Diameter 2.0 cm LV Ejection Fraction MOD 2C 47.3 % LV Ejection Fraction 2C AL 48.3 % LA Diameter 4.6 cm IVC Diameter 3.1 cm M-MODE LA Ao Ratio MM 1.4 AV Cusp Separation MM 1.4 cm FINDINGS Left Ventricle Abnormal septal motion consistent with conduction abnormality. . Mildly dilated LV cavity with an ejection fraction of around 50%. Right Ventricle Mildly increased right ventricular size. Slightly diminished ejection fraction Right Atrium Mildly increased right atrial size. Left Atrium Mildly increased left atrial size. Mitral Valve hickened mitral valve. Moderate mitral annular calcification. Aortic Valve No gross abnormalities noted Tricuspid Valve No gross abnormalities noted Pulmonic Valve No gross abnormalities noted Pericardium No pericardial effusion. Aorta Normal size aortic root IVC Normal inferior vena cava. CONCLUSIONS Abnormal septal motion consistent with conduction abnormality. . Normal LV size with a slightly diminished ejection fraction of 50% Mildly increased left atrial size. Mildly dilated right atrium and right ventricle. No significant change since the prior echocardiogram study of Hickened mitral valve. Moderate mitral annular calcification. There are no intracardiac masses. There is no pericardial effusion. No similar previous studies are available for comparison Compared to the study from 10/26/2017, there is some improvement in the LV ejection fraction Dr Shriin Kendrick MD FACC (Electronically Signed) Final Date: 05 November 2023 15:09 S
[2023-11-05 09:37] LABS: Blood Urea Nitrogen 60 mg/dL (6-20); Carbon Dioxide 29 mmol/L (22-29); Chloride 95 mmol/L (98-107); Creatinine Clr Calc Pharmacy 20.2146; Glomerular Filtration Rate 10.3 mL/min (90-130); Glucose 163 mg/dL (65-115); Osmolality Calculated 304 mOsm/kg (285-295); Sodium 137 mmol/L (136-145); Thyroid Stimulating Hormone 15.27 uIU/mL (0.27-4.20)
[2023-11-05 09:40] LABS: Anion Gap 19.4 (5-19); Potassium 6.4 mmol/L (3.5-5.1)
[2023-11-05] MEDS: dextrose 10% 250 ML 1000 ML IV (09:46)
[2023-11-05 10:28] LABS: ABG PCO2 57.8 mmHg (35-45); ABG PH Result 7.37 (7.35-7.45); Alveolar-Arterial Oxygen Gradi 62.5 mmHg (5-10); Arterial Blood Gas Hematocrit 32.9 % (42-52); Base Excess ABG 6.4 mmol/L (-2.0-2.0); Blood Gas Allen Test Pos; Blood Gas Operator Identificat WALCI; Blood Gas Sample Site Radial, right; Blood Gas Sample Type Arterial; Blood Gas Tidal Volume 0.45; Carboxyhemoglobin 0.5 %THgb (0.4-20.1); HCO3 ABG 33.2 mmol/L (22-26); HGB O2 Sat 93.3 % (95-100); Methemoglobin 0.7 % (0.4-1.5); Oxygen Device VENT; Oxygen Saturation ABG 94.5; PO2 FiO2 Ratio Arterial Blood 0; Potassium Level - ABG 5.8 mmol/L (3.5-5.0); Total Hemoglobin 10.7 g/dL (14-18)
[2023-11-05 10:30] LABS: Apprearance, Body Fluid CLOUDY; Color, Body Fluid YELLOW; PATH Referral YES
[2023-11-05 10:31] LABS: Fluid Laterality ASCITES
[2023-11-05 10:48] LABS: Body Fluid Polynuclear #Cells 0.039; Body Fluid WBC 329 /uL
[2023-11-05 11:11] LABS: Albumin Body Fluid 1.7 g/dL; Fluid Alkaline Phos. 45 IU/L; LDH Body Fluid 95 U/L; Total Protein Body Fluid 3.3 g/dL
[2023-11-05 11:12] LABS: Uric Acid Body Fluid 5 mg/dL
[2023-11-05 11:47] LABS: Cortisol Random 16.36 ug/dL (2.47-19.5)
[2023-11-05] MEDS: epoetin alfa 1000 Unit/0.05 mL (ESRD) 20000 UNIT IVP (12:26)
[2023-11-05] MEDS: heparin, porcine 1,000 unit/mL INJ 10 mL 1000 UNIT IV (12:28)
[2023-11-05 12:52] LABS: Troponin 5 6HR 490.4 ng/L (0-15); Troponin 5 6HR Delta 228.4 ng/L (0-12)
[2023-11-05] MEDS: norepinephrine 4 MG/250 ML BAG 45 MG IV (12:57)
[2023-11-05] MEDS: fentaNYL 1,000 MCG/100 ML BAG 12.5 MCG IV (13:05)
[2023-11-05] MEDS: heparin drip 25,000 UNIT/500 ML PREMIX 36 UNIT IV (13:10)
[2023-11-05] MEDS: propofol 1,000 MG/100 ML INJ 3.39999999999999991 MG IV (17:30)
--- NOTE | 2023-11-05 18:43 | PC.NURSE ---
Versed Waste Wasted 57 mls versed with GILMER DE LUNA.
[2023-11-05] MEDS: fentaNYL 1,000 MCG/100 ML BAG 15 MCG IV (18:49)
--- NOTE | 2023-11-05 18:55 | PC.NURSE ---
witness versed gtt
[2023-11-05 19:01] LABS: Partial Thromboplastin Time 58.4 SECONDS (23.9-36.7)
[2023-11-05] MEDS: norepinephrine 4 MG/250 ML BAG 30 MG IV (19:44)
--- NOTE | 2023-11-05 21:34 | XRR_ITS ---
PROCEDURE INFORMATION: Exam: XR Chest Exam date and time: 11/05/2023 8:41 PM Age: 53 years old Clinical indication: Shortness of breath; Additional info: Desat on vent TECHNIQUE: Imaging protocol: Radiologic exam of the chest. Views: 1 view. COMPARISON: CR XR chest 1V portable [id number] 11/05/2023 8:31 AM FINDINGS: Tubes, catheters and devices: The right central line tip is in the right atrium. ET tube is in satisfactory position. Feeding tube is beyond the of the field of view, distal to the gastroesophageal junction. Lungs: Poor inspiratory effort with multilobar consolidations involving the left lower lobe, left mid and right mid lung zones. Pleural spaces: Unremarkable. No pleural effusion. No pneumothorax. Heart/Mediastinum: Cardiomegaly. Bones/joints: Unremarkable. XR/XR chest 1V portable [id number] IMPRESSION: Multilobar consolidations involving the retrocardiac region, and bilateral mid lung zones, likely infectious.
[2023-11-05] MEDS: propofol 1,000 MG/100 ML INJ 13.6099999999999994 MG IV (22:55)
[2023-11-05] MEDS: fentaNYL 1,000 MCG/100 ML BAG 20 MCG IV (23:07)
--- NOTE | 2023-11-05 23:52 | PC.NURSE ---
[facility] ref #: [id number] MTS called to inform them pt is on vent
[2023-11-06] VITALS (54 sets, daily range): BP systolic 65–137; BP diastolic 42–91; PULSE 76–84; RESP 19–39; TEMP 36.5–37.4; O2SAT 93–100
--- NOTE | 2023-11-06 00:54 | PC.NURSE ---
Verbal orders entered in MAR for Diltizem gtt, Versed gtt and Vasopressin gtt under ER Physician for medications ordered and administered during resuscitation/Code Blue.
[2023-11-06 01:06] LABS: Partial Thromboplastin Time 49.5 SECONDS (23.9-36.7)
[2023-11-06] MEDS: piperacillin-tazobactam 3.375 GM in sodium chloride 0.9% (plus) 50 ML IV ×3 (01:31→18:54)
[2023-11-06] MEDS: heparin drip 25,000 UNIT/500 ML PREMIX 38 UNIT IV (01:31)
[2023-11-06] MEDS: heparin 5,000 unit/mL INJ 1 mL IV ×2 (01:31→08:58)
[2023-11-06] MEDS: norepinephrine 4 MG/250 ML BAG 37.5 MG IV ×3 (02:52→21:25)
[2023-11-06] MEDS: propofol 1,000 MG/100 ML INJ 17.0100000000000016 MG IV ×4 (03:17→18:54)
[2023-11-06] MEDS: fentaNYL 1,000 MCG/100 ML BAG 20 MCG IV ×2 (03:35→08:47)
[2023-11-06 03:59] LABS: ABG PCO2 45.5 mmHg (35-45); ABG PH Result 7.47 (7.35-7.45); Arterial Blood Gas Hematocrit 35.1 % (42-52); Base Excess ABG 8.3 mmol/L (-2.0-2.0); Blood Gas Allen Test Pos; Blood Gas Sample Site Radial, right; Blood Gas Sample Type Arterial; Blood Gas Tidal Volume 0.45; HCO3 ABG 33.1 mmol/L (22-26); Oxygen Device VENT; PO2 FiO2 Ratio Arterial Blood 0
[2023-11-06 04:31] LABS: Basophils # 0.1 10^3/uL (0.0-0.1); Eosinophils # 0.7 10^3/uL (0.0-0.8); Eosinophils % 9.8 %; Hematocrit 37.5 % (37-53); Lymphocytes # 0.8 10^3/uL (0.8-4.8); Lymphocytes % 11.1 %; Mean Corpuscular HGB Conc 29.3 g/dL (30-55); Mean Corpuscular Hemoglobin 27.3 pg (27-33); Mean Corpuscular Volume 93.1 fl (82-101); Monocytes # 0.7 10^3/uL (0.2-0.9); Monocytes % 10.8 %; Neutrophils # 4.56 10^3/uL (1.8-7.7); Neutrophils % 66.9 %; Nucleated Red Blood Cells % 0 %; Platelet Count 114 10^3/cmm (157-399); Red Blood Count 4.03 10^6/uL (3.85-5.65); Red Cell Distribution Width 17.6 % (12.1-15.1); White Blood Count 6.83 10^3/uL (3.29-11.43)
[2023-11-06 04:53] LABS: Alanine Aminotransferase 13 U/L (0-41); Albumin Level 2.9 g/dL (3.5-5.2); Alkaline Phosphatase 109 U/L (40-130); Anion Gap 18.9 (5-19); Aspartate Amino Transferase 29 U/L (0-40); Blood Urea Nitrogen 52 mg/dL (6-20); Carbon Dioxide 30 mmol/L (22-29); Chloride 95 mmol/L (98-107); Creatinine Clr Calc Pharmacy 21.2278; Globulin 4.3 g/dL (1.3-4.6); Glomerular Filtration Rate 10.7 mL/min (90-130); Glucose 143 mg/dL (65-115); Magnesium 2.1 mg/dL (1.7-2.3); Osmolality Calculated 303 mOsm/kg (285-295); Potassium 5.9 mmol/L (3.5-5.1); Sodium 138 mmol/L (136-145); Total Bilirubin 0.5 mg/dL (0.15-1.2); Total Protein 7.2 g/dL (6.6-8.7)
[2023-11-06] MEDS: venlafaxine ER (24HR) 75 mg Capsule PO (05:24)
--- NOTE | 2023-11-06 07:00 | XRR_ITS ---
PROCEDURE INFORMATION: Exam: XR Chest Exam date and time: 11/06/2023 6:06 AM Age: 53 years old Clinical indication: Condition or disease; Lung condition and disease; Respiratory failure; Status not specified; Additional info: Reesp failure TECHNIQUE: Imaging protocol: Radiologic exam of the chest. Views: 1 view. COMPARISON: CR (CHEST, ) 11/05/2023 8:41 PM FINDINGS: Lungs: Improved aeration bilaterally although atelectatic changes persist. Pleural spaces: Unremarkable. No pleural effusion. No pneumothorax. Heart/Mediastinum: Mild cardiomegaly. Vasculature: Uncoiling of the thoracic aorta. Bones/joints: Unremarkable. Other findings: Stable life support lines. XR/XR chest 1V portable [id number] IMPRESSION: Slightly improved aeration. No other change.
--- NOTE | 2023-11-06 07:42 | XRR_ITS ---
PROCEDURE INFORMATION: Exam: XR Right Tibia and Fibula Exam date and time: 11/06/2023 7:03 AM Age: 53 years old Clinical indication: Swelling, leg or foot; Additional info: Edema TECHNIQUE: Imaging protocol: Radiologic exam of the right tibia and fibula. Views: 2 views. COMPARISON: CR XR tibia fibula RT 2V [id number] 10/16/2023 7:59 AM FINDINGS: Bones/joints: No acute fracture or dislocation. Soft tissues: Visualized superficial soft tissues are within normal limits. Vasculature: Prominent vascular calcific disease. XR/XR tibia fibula RT 2V [id number] IMPRESSION: 1. No acute fracture or dislocation. 2. Prominent vascular calcific disease.
--- NOTE | 2023-11-06 07:42 | USCV_ITS ---
VelascoAkil Age: 53 Gender: M : 1970 Exam Date: 11/06/2023 09:38 Ordering Phys: Darren Vela MD Technologist: MONSE Exam Location: [facility] [place] Indication: RLE EDEMA HISTORY: Lower extremity edema. PROCEDURES: Venous duplex imaging was performed in only the right lower extremity. The following venous structures were evaluated: common femoral vein, profunda vein, proximal portion of the greater saphenous vein, superficial femoral vein, and the popliteal vein. In addition, the posterior tibial and peroneal trunk were evaluated. Serial compression, augmentation maneuvers, and spectral Doppler flow evaluation were performed. FINDINGS: No evidence of DVT seen in any vessel visualized at this time. Examination was technically limited due to body habitus. Edema seen in RLE CONCLUSIONS No DVT right lower extremity. There is subcutaneous right lower extremity edema noted. Dr. Lynn Holt DO (Electronically Signed) Final Date: 06 November 2023 10:06 S
[2023-11-06 08:10] LABS: Partial Thromboplastin Time 49.6 SECONDS (23.9-36.7)
--- NOTE | 2023-11-06 08:54 | P.PN_ITS ---
Subjective 2 Subjective: Aikl had some issues with hypoxia last night. FiO2 was increased. PEEP has since been slightly increased and FiO2 decreased. He is sedated, on the ventilator but opens his eyes briefly to stimulation. Medications: Reviewed: Yes Vitals/I&O/Wt Last Vital Signs Temp 98.3 F 11/06/23 06:00 Pulse 79 11/06/23 06:30 Resp 20 H 11/06/23 07:15 BP 104/52 11/06/23 06:30 Pulse Ox 94 11/06/23 07:15 O2 Del Method Mechanical Ventilation 11/05/23 16:55 O2 Flow Rate 4 11/05/23 06:07 FiO2 70 11/06/23 07:15 11/05/23 11/06/23 11/06/23 22:59 06:59 14:59 Intake Total 1643.886 / 2882.768 1244.517 / 4127.285 215.625 / 215.625 Output Total 1478 / 1478 0 / 1478 Balance 165.886 / 6978.445 1998.517 / 2649.285 215.625 / 215.625 Weight last 48 hrs Weight 128.5 kg Weight 126.1 kg Weight 122.725 kg Weight 113.398 kg Physical Exam 2 Narrative: General exam is a sedated male, on ventilator. HEENT: Atraumatic and normocephalic. Oropharynx with endotracheal tube. Oropharyngeal tube noted Neck is supple no lymphadenopathy thyromegaly Cardiovascular regular rate and rhythm with a 3/6 systolic murmur Lungs diminished breath sounds bilaterally. No wheezes Abdomen positive bowel sounds. Ascites noted Extremities right lower extremity with multiple chronic ulcerations, none appear acutely infected. Pulses difficult to feel. Refill less than 2 seconds. Left with below the knee amputation. Skin no rash Neuro: Sedated Urinary Catheter Management: Melgar: Cath Placed During This Visit: yes Reason for Continuing Indwelling Catheter: Accurate Measurement of Urinary Output in Critically Ill Patients Urinary Catheter Date of Insertion: 11/05/23 Urinary Catheter Time of Insertion: 07:48 Data 11/06/23 04:14 11/06/23 04:14 Micro: Microbiology 11/05/23 05:40 Blood Culture - Preliminary Blood NEGATIVE TO DATE 11/05/23 05:35 Blood Culture - Preliminary Blood NEGATIVE TO DATE 11/05/23 Unknown Gram Stain - Final Peritoneal Fluid 11/05/23 08:00 Gram Stain - Final Sputum - Endotracheal Tube Aspirate A&P Assessment and plan (1) Chest pain: Original complaint of the patient was chest discomfort Troponin is elevated but trend is not concerning Must still be concerned about coronary disease with recent stenting, October 16 with drug-eluting stent as well as angioplasty. See report for details. Heparin drip Echocardiogram, limited, demonstrates EF around 50%. This is slightly improved from previous Cardiology consult appreciated Continue Plavix Continue aspirin Continue statin Qualifiers: Chest pain type: unspecified Qualified Code(s): R07.9 - Chest pain, unspecified (2) Acute respiratory failure: Postcode Patient with acute respiratory failure Wean ventilator as tolerated FiO2 is now decreased to 70%. PEEP at 10. (3) Cardiac arrest: Status post V-fib cardiac arrest ROSC achieved Currently on amiodarone drip. Changes to p.o. Awaiting code summary report (4) Ventricular fibrillation: Potassium being corrected Nephrology consult Amiodarone IV has been given over 24 hours. Changed to p.o. Cannot rule ischemic etiology (5) Atrial fibrillation: Placed on amiodarone I have discontinued Cardizem that was initiated in the emergency department. Currently in sinus rhythm Anticoagulated with heparin Qualifiers: Atrial fibrillation type: unspecified Qualified Code(s): I48.91 - Unspecified atrial fibrillation (6) Hypotension: Patient with severe hypotension This most likely is secondary to cardiac arrest as well as sepsis Currently on norepinephrine at 10. Wean as tolerated Qualifiers: Hypotension type: idiopathic hypotension Qualified Code(s): I95.0 - Idiopathic hypotension (7) Sepsis: See findings under hypotension IV antibiotics consisting of linezolid, Zosyn Blood cultures Obtain diagnostic paracentesis, for concern of SBP as he receives intermittent paracentesis Urine culture if urine can be obtained Was not candidate for any fluid bolus on admission secondary to fluid overload. X-ray right lower extremity Consider CT abdomen pelvis as patient stabilizes. 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 Started on Synthroid low-dose, 25 mcg secondary to arrhythmia Plan End-stage renal disease on hemodialysis with hyperkalemia. He received calcium. He has received insulin plus glucose. Nephrology consult appreciated. He was ultrafiltrated on November 04. Dialysis is planned today.. Multiple other medical problems as outlined in past medical history Full code Heparin will suffice for DVT prophylaxis Does not produce significant urine chronically. Discontinue Melgar at this time. Attestations 2 Medical Necessity Statement*: Needs continued hospitalization secondary to respiratory failure requiring mechanical ventilation, sepsis requiring pressors. Critical Care Time: The high probability of a clinically significant, sudden or life threatening deterioration of the patient's [pulmonary, infectious disease, cardiac] s ystem(s) required my full and direct attention, intervention and personal management. The critical care time is as shown. This time is in addition to time spent performing any reported procedures but includes the following: [x] Data and vital sign review and interpretation [x] Patient assessment, examination and intervention [x] Documentation [x] Medication orders and management Critical Care Time (min): 37 Coding Level of Care Code Critical Care >/= 30 minutes Critical care time (in minutes): 37 The high probability of a clinically significant, sudden or life threatening deterioration, as referenced in this documentation, required my full and direct attention, intervention and personal management. The critical care time shown is in addition to time spent performing any reported separately billable procedures and includes the following: [x] Data and vital sign review and interpretation [x ] Patient assessment, examination and intervention [x] Medication orders and management [x] Patient/Family updates as able [x] Care Coordination and Documentation. 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
[2023-11-06] MEDS: atorvastatin 40 mg Tablet 80 MG PO (08:58)
[2023-11-06] MEDS: levothyroxine 50 mcg Tablet PO (08:58)
[2023-11-06] MEDS: clopidogrel 75 mg Tablet PO (08:58)
[2023-11-06] MEDS: aspirin 81 mg EC Tablet PO (08:58)
[2023-11-06] MEDS: linezolid premix 600 MG/300 ML PREMIX 300 MG IV ×2 (08:59→20:43)
[2023-11-06] MEDS: pantoprazole 40 mg SDV IVP (09:00)
--- NOTE | 2023-11-06 09:15 | PM.PN ---
Subjective Subjective: Patient's condition is unchanged. On vent requiring 70% FiO2. Vitals/I&O/Wt Last Vital Signs Temp 98.3 F 11/06/23 06:00 Pulse 79 11/06/23 06:30 Resp 20 H 11/06/23 07:15 BP 104/52 11/06/23 06:30 Pulse Ox 94 11/06/23 07:15 O2 Del Method Mechanical Ventilation 11/05/23 16:55 O2 Flow Rate 4 11/05/23 06:07 FiO2 70 11/06/23 07:15 11/05/23 11/06/23 11/06/23 22:59 06:59 14:59 Intake Total 1643.886 / 2882.768 1244.517 / 4127.285 598.725 / 598.725 Output Total 1478 / 1478 0 / 1478 Balance 165.886 / 8358.723 6560.517 / 2649.285 598.725 / 598.725 Weight last 48 hrs Weight 283 lb 4.704 oz Weight 278 lb 0.046 oz Weight 270 lb 9 oz Weight 250 lb Physical Exam Narrative: GENERAL: Patient is alert, awake and oriented x3. [] NECK: No jugular vein distension. [] HEENT: No cyanosis. No icterus. No pallor. [] HEART: Regular S1 and S2.Has grade 3/6 systolic murmur LUNGS: Clear to auscultate bilaterally. [] CENTRAL NERVOUS SYSTEM: Grossly nonfocal. [] EXTREMITIES: Left BKA. Urinary Catheter Management: Melgar: Cath Placed During This Visit: yes Reason for Continuing Indwelling Catheter: Accurate Measurement of Urinary Output in Critically Ill Patients Urinary Catheter Date of Insertion: 11/05/23 Urinary Catheter Time of Insertion: 07:48 Data 11/07/23 03:54 11/07/23 03:54 Micro: Microbiology 11/05/23 05:40 Blood Culture - Preliminary Blood NEGATIVE TO DATE 11/05/23 05:35 Blood Culture - Preliminary Blood NEGATIVE TO DATE 11/05/23 Unknown Gram Stain - Final Peritoneal Fluid 11/05/23 08:00 Gram Stain - Final Sputum - Endotracheal Tube Aspirate A&P Assessment and plan (1) Ventricular fibrillation: (2) Atherosclerotic heart disease of [place] coronary artery with other forms of angina pectoris: (3) Type 2 diabetes mellitus: Qualifiers: Diabetes mellitus usp insulin use: 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 Diabetes mellitus complication status: with kidney complications Diabetes mellitus complication detail: with chronic kidney disease Chronic kidney disease stage: on chronic dialysis Qualified Code(s): E11.22 - Type 2 diabetes mellitus with diabetic chronic kidney disease; N18.6 - End stage renal disease; Z99.2 - Dependence on renal dialysis (4) End-stage renal disease on hemodialysis: (5) Anemia: Qualifiers: Anemia type: iron deficiency Iron deficiency anemia type: other iron deficiency Qualified Code(s): D50.8 - Other iron deficiency anemias (6) Acute and chronic respiratory failure with hypoxia: (7) Atrial fibrillation: Qualifiers: Atrial fibrillation type: unspecified Qualified Code(s): I48.91 - Unspecified atrial fibrillation (8) Ascites: Qualifiers: Ascites type: other type Qualified Code(s): R18.8 - Other ascites (9) Hypotension: Qualifiers: Hypotension type: idiopathic hypotension Qualified Code(s): I95.0 - Idiopathic hypotension (10) Aortic stenosis: Plan Patient had reported ventricular fibrillation. This was in setting of fever and hyperkalemia EKG not showing ischemic changes. Troponins went up after cardiac arrest and CPR. However patient did present with chest discomfort. We will perform right and left heart cath before patient is extubated. However potassium level still elevated. Patient still requiring high FiO2. Primary team planning on CT scans. Once he is more stable, we will proceed with the procedure Continue aspirin and plavix. Thank you for involving us with care of this patient. We will continue to follow. Please call with questions. Attestations Medical Necessity Statement*: Care expected to cross 2 midnights. Coding Level of Care Code Acute Code for [facility] Fwd Diagnoses Ventricular fibrillation I49.01 Atherosclerotic heart disease of [place] coronary artery with other forms of angina pectoris I25.118 Type 2 diabetes mellitus with chronic kidney disease on chronic dialysis, without long-term current use of insulin E11.22; N18.6; Z99.2 Diabetes mellitus long wall mining machine helper insulin use: 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 Diabetes mellitus complication status: with kidney complications Diabetes mellitus complication detail: with chronic kidney disease Chronic kidney disease stage: on chronic dialysis End-stage renal disease on hemodialysis N18.6; Z99.2 Other iron deficiency anemia D50.8 Anemia type: iron deficiency Iron deficiency anemia type: other iron deficiency Acute and chronic respiratory failure with hypoxia J96.21 Atrial fibrillation, unspecified type I48.91 Atrial fibrillation type: unspecified Other ascites R18.8 Ascites type: other type Idiopathic hypotension I95.0 Hypotension type: idiopathic hypotension Aortic stenosis I35.0
[2023-11-06] MEDS: norepinephrine 4 MG/250 ML BAG 48.75 MG IV (09:26)
[2023-11-06] MEDS: amiodarone 200 mg Tablet 400 MG PO ×2 (09:27→17:35)
--- NOTE | 2023-11-06 09:29 | P.PN_ITS ---
Subjective 2 Subjective: remains on vent Medications: Reviewed: Yes Vitals/I&O/Wt Last Vital Signs Temp 98.3 F 11/06/23 06:00 Pulse 79 11/06/23 06:30 Resp 20 H 11/06/23 07:15 BP 104/52 11/06/23 06:30 Pulse Ox 94 11/06/23 07:15 O2 Del Method Mechanical Ventilation 11/05/23 16:55 O2 Flow Rate 4 11/05/23 06:07 FiO2 70 11/06/23 07:15 11/05/23 11/06/23 11/06/23 22:59 06:59 14:59 Intake Total 1643.886 / 2882.768 1244.517 / 4127.285 733.100 / 733.100 Output Total 1478 / 1478 0 / 1478 Balance 165.886 / 4335.619 2007.517 / 2649.285 733.100 / 733.100 Weight last 48 hrs Weight 128.5 kg Weight 126.1 kg Weight 122.725 kg Weight 113.398 kg Physical Exam 2 Narrative: intubated , sedated Urinary Catheter Management: Melgar: Cath Placed During This Visit: yes Reason for Continuing Indwelling Catheter: Accurate Measurement of Urinary Output in Critically Ill Patients Urinary Catheter Date of Insertion: 11/05/23 Urinary Catheter Time of Insertion: 07:48 Data 11/06/23 04:14 11/06/23 04:14 Micro: Microbiology 11/05/23 05:40 Blood Culture - Preliminary Blood NEGATIVE TO DATE 11/05/23 05:35 Blood Culture - Preliminary Blood NEGATIVE TO DATE 11/05/23 Unknown Gram Stain - Final Peritoneal Fluid 11/05/23 08:00 Gram Stain - Final Sputum - Endotracheal Tube Aspirate A&P Assessment and plan (1) End-stage renal disease on hemodialysis: 1. End-stage renal disease: On TTS schedule as outpatient, now patient is hyperkalemic and status post cardiac arrest. -Patient currently on 2 pressors, -s/p hD yesterday and HD again today for hyperkalemia -Assess daily for HD needs 2. Status post V-fib, ROSC achieved currently on amiodarone and on pressors 3. Chest pain, workup in process 4. Acute on chronic respiratory failure, currently intubated 5. Hyperkalemia: HD as above 6. Possible sepsis: Workup in process. 7. Anemia: Hemoglobin 11, monitor, ALBERTO with HD. Patient evaluated using audiovisual cart. Time spent 40 minutes Attestations 2 Medical Necessity Statement*: per medicine Coding Level of Care Code Acute Code for [facility] Fwd Diagnoses End-stage renal disease on hemodialysis N18.6; Z99.2
[2023-11-06] MEDS: fentaNYL 1,000 MCG/100 ML BAG 17.5 MCG IV ×2 (13:49→19:01)
[2023-11-06 14:42] LABS: Partial Thromboplastin Time 57.1 SECONDS (23.9-36.7)
--- NOTE | 2023-11-06 15:00 | PC.NURSE ---
Heparin gtt: PTT 57.1 No changes indicated.
[2023-11-06] MEDS: heparin drip 25,000 UNIT/500 ML PREMIX 40 UNIT IV (16:17)
--- NOTE | 2023-11-06 17:35 | PC.NURSE ---
Zosyn due at 1730, to be admin near the end or after dialysis.
--- NOTE | 2023-11-06 19:25 | PC.NURSE ---
Shift summary: Pt remains sedated and intubated. FIO2 decreased to 40% this shift. Fentanyl gtt decreased to 175 mcg/hr. Levophed now at 12mcg/min. Propofol gtt remains at 25mcg/kg/min. Heparin infusion adjusted once this shift for no therapeutic PTT. Sinus rhythm noted on monitor throughout shift. Pulses dopplered on right dark red/purplish leg. His toes are cold and darker purple. He has several stasis ulcers on the lower portion of his right leg. Melgar catheter removed today as pt is anuric. No BM noted.
[2023-11-06] MEDS: heparin, porcine 1,000 unit/mL INJ 10 mL 1000 UNIT IV (20:38)
[2023-11-06 21:12] LABS: Partial Thromboplastin Time 66.5 SECONDS (23.9-36.7)
[2023-11-06] MEDS: propofol 1,000 MG/100 ML INJ 20.4100000000000001 MG IV (23:29)
[2023-11-07] VITALS (51 sets, daily range): BP systolic 52–149; BP diastolic 38–84; PULSE 64–80; RESP 20–21; TEMP 35.9–36.9; O2SAT 91–100
[2023-11-07] MEDS: fentaNYL 1,000 MCG/100 ML BAG 17.5 MCG IV (00:22)
[2023-11-07] MEDS: piperacillin-tazobactam 3.375 GM in sodium chloride 0.9% (plus) 50 ML IV ×3 (02:36→18:30)
[2023-11-07 03:30] LABS: Blood Gas Sample Site Brachial, right; Blood Gas Sample Type Arterial; Blood Gas Tidal Volume 0.45; Oxygen Device VENT; PO2 FiO2 Ratio Arterial Blood 0
[2023-11-07 03:31] LABS: ABG PCO2 40.8 mmHg (35-45); Arterial Blood Gas Hematocrit 34.5 % (42-52); Base Excess ABG 7.8 mmol/L (-2.0-2.0); HCO3 ABG 31.7 mmol/L (22-26); PO2 ABG 80.3 mmHg (80.0-100.0)
[2023-11-07] MEDS: heparin drip 25,000 UNIT/500 ML PREMIX 40 UNIT IV ×2 (04:35→15:18)
[2023-11-07] MEDS: propofol 1,000 MG/100 ML INJ 13.6099999999999994 MG IV ×2 (04:36→10:43)
[2023-11-07] MEDS: norepinephrine 4 MG/250 ML BAG 22.5 MG IV (04:38)
[2023-11-07 04:41] LABS: Basophils # 0.1 10^3/uL (0.0-0.1); Eosinophils # 0.7 10^3/uL (0.0-0.8); Eosinophils % 13.5 %; Hematocrit 36.2 % (37-53); Lymphocytes # 0.7 10^3/uL (0.8-4.8); Lymphocytes % 12.9 %; Mean Corpuscular HGB Conc 29.6 g/dL (30-55); Mean Corpuscular Hemoglobin 26.8 pg (27-33); Mean Corpuscular Volume 90.7 fl (82-101); Mean Platelet Volume 12.5 fL (7.4-10.4); Monocytes # 0.6 10^3/uL (0.2-0.9); Neutrophils # 3.08 10^3/uL (1.8-7.7); Neutrophils % 60.4 %; Nucleated Red Blood Cells % 0 %; Platelet Count 127 10^3/cmm (157-399); Red Blood Count 3.99 10^6/uL (3.85-5.65); Red Cell Distribution Width 17.4 % (12.1-15.1)
[2023-11-07 04:55] LABS: Partial Thromboplastin Time 57.7 SECONDS (23.9-36.7)
[2023-11-07 05:03] LABS: Alanine Aminotransferase 11 U/L (0-41); Albumin Level 2.7 g/dL (3.5-5.2); Alkaline Phosphatase 93 U/L (40-130); Aspartate Amino Transferase 22 U/L (0-40); Blood Urea Nitrogen 41 mg/dL (6-20); Calcium 8.3 mg/dL (8.5-10.5); Carbon Dioxide 30 mmol/L (22-29); Chloride 93 mmol/L (98-107); Creatinine Clr Calc Pharmacy 22.5571; Globulin 4.3 g/dL (1.3-4.6); Glomerular Filtration Rate 11.4 mL/min (90-130); Glucose 109 mg/dL (65-115); Magnesium 1.9 mg/dL (1.7-2.3); Osmolality Calculated 293 mOsm/kg (285-295); Sodium 136 mmol/L (136-145); Total Bilirubin 0.6 mg/dL (0.15-1.2)
[2023-11-07] MEDS: levothyroxine 25 mcg Tablet PO (05:06)
[2023-11-07] MEDS: venlafaxine ER (24HR) 75 mg Capsule PO (05:06)
[2023-11-07] MEDS: fentaNYL 1,000 MCG/100 ML BAG 12.5 MCG IV ×2 (06:27→13:41)
--- NOTE | 2023-11-07 06:46 | CTR_ITS ---
PROCEDURE INFORMATION: Exam: CT Chest Without Contrast; Diagnostic Exam date and time: 11/07/2023 5:56 PM Age: 53 years old Clinical indication: Right renal cell CA, s/p partial nephrectomy. Fever; Additional info: Fever, sepsis, unkown source TECHNIQUE: Imaging protocol: Diagnostic computed tomography of the chest without contrast. Total images: 658. Radiation optimization: All CT scans at this facility use at least one of these dose optimization techniques: automated exposure control; mA and/or kV adjustment per patient size (includes targeted exams where dose is matched to clinical indication); or iterative reconstruction. COMPARISON: 1. CT angio chest PE protcl [id number] 09/27/2021 11:[address] angio chest PE protcl [id number] 01/05/2021 1:07 PM 3. CR XR chest 1V portable [id number] 11/07/2023 5:59 AM RADIATION DOSE METRICS: Total DLP (mGy-cm): 1471.98 FINDINGS: Tubes, catheters and devices: ET, NG/OG tubes, and right upper extremity PICC are in position. Trachea: Conventional. Lungs: A few, < 5 mm, calcified granulomas are scattered within bilateral lower lobes. Bilateral lower lobes are almost completely consolidated with air-bronchograms. Mild, crescentic air-space and linear and reticular opacities at dependent portions of bilateral upper and right middle lobes likely represent compressive and subsegmental atelectasis. Pleural spaces: There is a mild, right and tiny, left, low density, pleural effusions. Measurement of density is problematic due to beam hardening artifact related to nonelevated arms. No pneumothorax. Heart: Heart is mildly enlarged. Mitral annulus is mildly calcified. Coronary arteries: Coronary arteries are severely calcified. Mediastinal space: Normal. Lymph nodes: No radiographically enlarged lymph nodes. Vasculature: Mild air within right internal jugular vein likely is related to administration via IV. Visualized descending thoracic aorta is mildly tortuous. Aorta and right common carotid artery are moderately calcified. Right proximal vertebral artery is mild-moderately calcified. Right subclavian artery and origins of great arteries are mildly calcified. Bones/joints: There is minimal left cervicothoracic curvature or scoliosis. T7-11 vertebrae remain mildly and minimally wedged anteriorly, suggesting mild and minimal, chronic, compression fractures. L1 vertebra remains moderately wedged anteriorly, with sclerosis of superior endplate, with approximately 25% loss of vertebral body height and < 20% retropulsion, without focal kyphosis, suggesting chronic, burst fracture. Deformity of left transverse process of L1 vertebra suggests chronic, healed fracture. Right transverse process of L1 vertebra is incidentally nonunited (variant). < 4 mm, grade I (??? 25%) retrolisthesis of L5 on S1 is unchanged, probably degenerative in nature. There are 6 sacral vertebrae. Chronic, nonunited fracture of 2nd coccygeal segment, with moderate anterior displacement of distal portion is unchanged. Deformity of left lateral 5th-8th ribs suggests old, healed fracture. Degenerative disc and facet disease of lower cervical spine, degenerative disc disease of several levels of thoracic and lumbar spine, and degenerative facet disease of mid-lower lumbar spine are present. < 1.2 cm, linear, well-defined, sclerotic lesion at right femoral neck statistically probably represents benign bone island. There are moderate osteoarthritis of right glenohumeral joint and mild osteoarthritis of left glenohumeral, bilateral sternoclavicular, and bilateral hip joints. < 1 cm, crescentic calcification/ossification posterior to right humeral head may reflect loose body. Soft tissues: Moderate, reticulated opacities at lateral aspects of bilateral lower hemithoraces suggest soft tissue inflammation. PROCEDURE INFORMATION: Exam: CT Abdomen And Pelvis Without Contrast Exam date and time: 11/07/2023 5:56 PM Age: 53 years old Clinical indication: Fever; Additional info: Fever, sepsis, unkown source TECHNIQUE: Imaging protocol: Computed tomography of the abdomen and pelvis without contrast. Total images: 658. Radiation optimization: All CT scans at this facility use at least one of these dose optimization techniques: automated exposure control; mA and/or kV adjustment per patient size (includes targeted exams where dose is matched to clinical indication); or iterative reconstruction. COMPARISON: 1. CT abdomen pelvis w con* [id number] 05/07/2023 5:[address] abdomen pelvis w con* [id number] 03/22/2022 4:[address] abdomen wo con [id number] 05/13/2020 10:12 AM RADIATION DOSE METRICS: Total DLP (mGy-cm): 1471.98 FINDINGS: Lungs: See findings of chest CT of same date. Pleural spaces: See findings of chest CT of same date. Heart: See findings of chest CT of same date. Liver: Liver is lobulated in contour, suggesting cirrhosis. Gallbladder and bile ducts: A few, questionable, high density gallstones may layer dependently within gallbladder. Pancreas: Grossly normal. No pancreatic duct dilation. Spleen: Spleen remains mildly enlarged. Adrenal glands: Right adrenal appears thick and plump. Left adrenal is normal. Kidneys and ureters: Bilateral kidneys are at lower limit of normal in size. Surgical clips at anterior aspect of mid-lower portion of right kidney suggest partial nephrectomy. Stomach and bowel: Mild, high attenuation areas layering dependently within gastric antrum and moderate, high attenuation areas within lumen of nondilated colon and mildly dilated rectum suggest ingested dense material. Small bowel is grossly unremarkable. A few outpouchings arising from primarily descending and sigmoid colon are consistent with diverticula. Mild-moderate omental fat and mild, low density, free fluid extending into umbilicus is consistent with hernia. Appendix: No evidence of appendicitis. Intraperitoneal space: There is severe, low density (Hounsfield units 15), free fluid at perihepatic, perisplenic, perigastric, and hepatorenal spaces, mesentery, bilateral paracolic gutters, and pelvis. No pneumoperitoneum. Retroperitoneal space: No free fluid. Vasculature: Abdominal aorta, splenic, common, right, and left hepatic, gastroduodenal, bilateral renal, inferior mesenteric, and bilateral iliac, femoral, inferior epigastric, and deep circumflex iliac arteries are moderately calcified. Celiac and superior mesenteric arteries and origin of left main renal artery are mildly calcified. Right hepatic artery is replaced off of superior mesenteric artery. Lymph nodes: Several, < 1.4 cm in short axis, mildly enlarged, celiac and gastrohepatic and < 2.3 cm in short axis, non, mildly, and moderately enlarged, retrocaval, aortocaval, para-aortic, bilateral common iliac, iliac bifurcation, and internal and external iliac, and groin lymph nodes are stable from 03/22/22. Urinary bladder: Moderate circumferential bladder wall thickening likely is related to almost completely empty state. Reproductive: Bilateral ductus deferens are moderately calcified. Bones/joints: There is minimal left cervicothoracic curvature or scoliosis. T7-11 vertebrae remain mildly and minimally wedged anteriorly, suggesting mild and minimal, chronic, compression fractures. L1 vertebra remains moderately wedged anteriorly, with sclerosis of superior endplate, with approximately 25% loss of vertebral body height and < 20% retropulsion, without focal kyphosis, suggesting chronic, burst fracture. Deformity of left transverse process of L1 vertebra suggests chronic, healed fracture. Right transverse process of L1 vertebra is incidentally nonunited (variant). < 4 mm, grade I (??? 25%) retrolisthesis of L5 on S1 is unchanged, probably degenerative in nature. There are 6 sacral vertebrae. Chronic, nonunited fracture of 2nd coccygeal segment, with moderate anterior displacement of distal portion is unchanged. Deformity of left lateral 5th-8th ribs suggests old, healed fracture. Degenerative disc and facet disease of lower cervical spine, degenerative disc disease of several levels of thoracic and lumbar spine, and degenerative facet disease of mid-lower lumbar spine are present. < 1.2 cm, linear, well-defined, sclerotic lesion at right femoral neck statistically probably represents benign bone island. There are moderate osteoarthritis of right glenohumeral joint and mild osteoarthritis of left glenohumeral, bilateral sternoclavicular, and bilateral hip joints. < 1 cm, crescentic calcification/ossification posterior to right humeral head may reflect loose body. Soft tissues: Moderate, crescentic, low attenuation areas and reticulated opacities within fat at bilateral anterior and lateral abdominal and pelvic farias, flanks, and lateral hips and visualized thighs suggest soft tissue edema and inflammation. Several, amorphous calcifications are scattered within fat at bilateral anterior and lateral abdominal farias, flanks, and lateral hips and visualized thighs. < 1.5 cm, lucent-centered calcification at left medial gluteal region may reflect injection granuloma. CT/[place] [id number] IMPRESSION: 1. Almost completely consolidated bilateral lower lobes, suggesting atelectasis. Superimposed aspiration or pneumonia cannot be excluded entirely. 2. Mild, right and tiny, left, low density, pleural effusions. 3. Mild cardiomegaly. Atherosclerosis and coronary artery disease. 4. Moderate soft tissue lesion at lateral aspects of bilateral lower hemithoraces. IMPRESSION: 1. Lobulated contour of liver, suggesting cirrhosis. Questionable, a few gallstones within gallbladder. Persistent, mild splenomegaly. 2. Lower limit of normal sized bilateral kidneys. S/P partial nephrectomy at mid-lower portion of right kidney. 3. Mild colonic diverticula. Mild-moderate umbilical hernia containing fat and mild, low density fluid. 4. Atherosclerosis. 5. Stable, several, < 1.4 cm in short axis, mildly enlarged, celiac and gastrohepatic and < 2.3 cm in short axis, non, mildly, and moderately enlarged, retrocaval, aortocaval, para-aortic, bilateral common iliac, iliac bifurcation, and internal and external iliac, and groin lymph nodes from 03/22/22, nonspecific in nature. 6. Severe, low density ascites. 7. Moderate soft tissue edema and inflammation at bilateral anterior and lateral abdominal and pelvic farias, flanks, and lateral hips and visualized thighs. Several calcifications scattered within fat at bilateral anterior and lateral abdominal farias, flanks, and lateral hips and visualized thighs, probably reflecting metastatic calcifications related to chronic renal failure or hypercalcemia. Other differential diagnosis include scleroderma or dermatomyositis.
--- NOTE | 2023-11-07 07:00 | XRR_ITS ---
PROCEDURE INFORMATION: Exam: XR Chest Exam date and time: 11/07/2023 5:59 AM Age: 53 years old Clinical indication: Condition or disease; Lung condition and disease; Respiratory distress and respiratory failure; Status not specified; Patient HX: HX of renal cell carcinoma; Additional info: Resp failure TECHNIQUE: Imaging protocol: Radiologic exam of the chest. Views: 1 view. COMPARISON: CR XR chest 1V portable [id number] 11/06/2023 6:06 AM FINDINGS: Tubes, catheters and devices: Stable life support device positions. Lungs: Diffuse hazy ground-glass pulmonary opacities without significant change. Low lung volumes. Pleural spaces: Bilateral pleural effusions without significant change. Heart/Mediastinum: Enlarged cardiac silhouette. Bones/joints: Unremarkable. XR/XR chest 1V portable [id number] IMPRESSION: Intrathoracic fluid overload similar to prior.
--- NOTE | 2023-11-07 07:07 | P.PN_ITS ---
Subjective 2 Subjective: Patient's FiO2 has improved. Vitals/I&O/Wt Last Vital Signs Temp 98.2 F 11/07/23 06:00 Pulse 77 11/07/23 06:00 Resp 20 H 11/07/23 03:12 BP 99/69 11/07/23 06:00 Pulse Ox 97 11/07/23 06:00 O2 Del Method Mechanical Ventilation 11/06/23 20:00 O2 Flow Rate 4 11/05/23 06:07 FiO2 40 11/07/23 03:12 11/06/23 11/07/23 11/07/23 22:59 06:59 14:59 Intake Total 1531.927 / 3116.901 1115.114 / 4232.015 Output Total 2827 / 2827 0 / 2827 Balance -1295.073 / 951.922 3085.114 / 1405.015 Weight last 48 hrs Weight 280 lb 3.32 oz Weight 280 lb 3.32 oz Weight 281 lb 1.43 oz Weight 283 lb 4.704 oz Weight 278 lb 0.046 oz Weight 270 lb 9 oz Physical Exam 2 Narrative: GENERAL: Patient is intubated and sedated. NECK: No jugular vein distension. [] HEENT: No cyanosis. No icterus. No pallor. [] HEART: Regular S1 and S2.Has grade 3/6 systolic murmur LUNGS: Clear to auscultate bilaterally. [] CENTRAL NERVOUS SYSTEM: Grossly nonfocal. [] EXTREMITIES: Left BKA. Urinary Catheter Management: Melgar: Cath Placed During This Visit: yes, but has since been removed by the nurse Reason for Continuing Indwelling Catheter: Decision to DC Catheter Urinary Catheter Date of Insertion: 11/05/23 Urinary Catheter Time of Insertion: 07:48 Date Urinary Catheter Removed: 11/06/23 Time Urinary Catheter Discontinued: 12:22 Data 11/08/23 04:59 11/08/23 04:59 Micro: Microbiology 11/05/23 Unknown Gram Stain - Final Peritoneal Fluid Anaerobic Culture - Preliminary Body Fluid Culture - Preliminary 11/05/23 08:00 Gram Stain - Final Sputum - Endotracheal Tube Aspirate Sputum Culture - Preliminary 11/05/23 05:40 Blood Culture - Preliminary Blood NEGATIVE TO DATE 11/05/23 05:35 Blood Culture - Preliminary Blood NEGATIVE TO DATE A&P Assessment and plan (1) Ventricular fibrillation: (2) Atherosclerotic heart disease of [place] coronary artery with other forms of angina pectoris: (3) Type 2 diabetes mellitus: Qualifiers: 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: without nursing home use Diabetes mellitus complication status: with kidney complications Diabetes mellitus complication detail: with chronic kidney disease Chronic kidney disease stage: on chronic dialysis Qualified Code(s): E11.22 - Type 2 diabetes mellitus with diabetic chronic kidney disease; N18.6 - End stage renal disease; Z99.2 - Dependence on renal dialysis (4) End-stage renal disease on hemodialysis: (5) Anemia: Qualifiers: Anemia type: iron deficiency Iron deficiency anemia type: other iron deficiency Qualified Code(s): D50.8 - Other iron deficiency anemias (6) Acute and chronic respiratory failure with hypoxia: (7) Atrial fibrillation: Qualifiers: Atrial fibrillation type: unspecified Qualified Code(s): I48.91 - Unspecified atrial fibrillation (8) Ascites: Qualifiers: Ascites type: other type Qualified Code(s): R18.8 - Other ascites (9) Hypotension: Qualifiers: Hypotension type: idiopathic hypotension Qualified Code(s): I95.0 - Idiopathic hypotension (10) Aortic stenosis: Plan Plan for coronary angiogram and right heart cath tomorrow. May need to do aortic valve study as it had showed moderate to severe aortic stenosis on previous echocardiogram. Continue dual antiplatelet therapy. Thank you for involving us with care of this patient. We will continue to follow. Please call with questions. Attestations 2 Medical Necessity Statement*: Care expected to cross 2 midnights. Coding Level of Care Code Acute Code for [facility] Diagnoses Ventricular fibrillation I49.01 Atherosclerotic heart disease of [place] coronary artery with other forms of angina pectoris I25.118 Type 2 diabetes mellitus with chronic kidney disease on chronic dialysis, without long-term current use of insulin E11.22; N18.6; Z99.2 Diabetes mellitus nursing home insulin use: without local intermodal truck driver use Diabetes mellitus complication status: with kidney complications Diabetes mellitus complication detail: with chronic kidney disease Chronic kidney disease stage: on chronic dialysis End-stage renal disease on hemodialysis N18.6; Z99.2 Other iron deficiency anemia D50.8 Anemia type: iron deficiency Iron deficiency anemia type: other iron deficiency Acute and chronic respiratory failure with hypoxia J96.21 Atrial fibrillation, unspecified type I48.91 Atrial fibrillation type: unspecified Other ascites R18.8 Ascites type: other type Idiopathic hypotension I95.0 Hypotension type: idiopathic hypotension Aortic stenosis I35.0
--- NOTE | 2023-11-07 07:45 | P.PN_ITS ---
Subjective 2 Subjective: Akil is sedated on the ventilator. He opens his eyes to stimulation. I reviewed his overnight course with the nurse that was on. No new events overnight. Medications: Reviewed: Yes Vitals/I&O/Wt Last Vital Signs Temp 98.2 F 11/07/23 06:00 Pulse 77 11/07/23 06:00 Resp 20 H 11/07/23 03:12 BP 99/69 11/07/23 06:00 Pulse Ox 97 11/07/23 06:00 O2 Del Method Mechanical Ventilation 11/06/23 20:00 O2 Flow Rate 4 11/05/23 06:07 FiO2 40 11/07/23 03:12 11/06/23 11/07/23 11/07/23 22:59 06:59 14:59 Intake Total 1531.927 / 3116.901 1115.114 / 4232.015 Output Total 2827 / 2827 0 / 2827 Balance -1295.073 / 427.971 6323.114 / 1405.015 Weight last 48 hrs Weight 127.1 kg Weight 127.1 kg Weight 127.5 kg Weight 128.5 kg Weight 126.1 kg Weight 122.725 kg Physical Exam 2 Narrative: General exam is a sedated male, on ventilator, becomes alert with stimulation HEENT: Atraumatic and normocephalic. Oropharynx with endotracheal tube. Oropharyngeal tube noted Neck is supple no lymphadenopathy thyromegaly Cardiovascular regular rate and rhythm with a 3/6 systolic murmur Lungs diminished breath sounds bilaterally. No wheezes Abdomen positive bowel sounds. Ascites noted. Some distention from the ascites. Extremities right lower extremity with multiple chronic ulcerations, none appear acutely infected. Pulses difficult to feel. Refill less than 2 seconds. Left with below the knee amputation. Skin no rash Neuro: No obvious focal deficits when awoke Urinary Catheter Management: Melgar: Cath Placed During This Visit: yes, but has since been removed by the nurse Reason for Continuing Indwelling Catheter: Decision to DC Catheter Urinary Catheter Date of Insertion: 11/05/23 Urinary Catheter Time of Insertion: 07:48 Date Urinary Catheter Removed: 11/06/23 Time Urinary Catheter Discontinued: 12:22 Data 11/07/23 03:54 11/07/23 03:54 Micro: Microbiology 11/05/23 Unknown Gram Stain - Final Peritoneal Fluid Anaerobic Culture - Preliminary Body Fluid Culture - Preliminary 11/05/23 08:00 Gram Stain - Final Sputum - Endotracheal Tube Aspirate Sputum Culture - Preliminary 11/05/23 05:40 Blood Culture - Preliminary Blood NEGATIVE TO DATE 11/05/23 05:35 Blood Culture - Preliminary Blood NEGATIVE TO DATE Other data: Chest x-ray reviewed by me demonstrates appropriate tube position, central line. Bilateral pleural effusions are noted versus lower lobe atelectasis. A&P Assessment and plan (1) Chest pain: Original complaint of the patient was chest discomfort Troponin is elevated but trend is not concerning Must still be concerned about coronary disease with recent stenting, October 16 with drug-eluting stent as well as angioplasty. See report for details. Continue heparin drip Echocardiogram, limited, demonstrates EF around 50%. This is slightly improved from previous Cardiology consult appreciated Continue Plavix Continue aspirin Continue statin Qualifiers: Chest pain type: unspecified Qualified Code(s): R07.9 - Chest pain, unspecified (2) Acute respiratory failure: Postcode Patient with acute respiratory f 40% and PEEP at 9 ailure Wean ventilator as tolerated FiO2 is now decreased to 70%. PEEP at 10. (3) Cardiac arrest: Status post V-fib cardiac arrest ROSC achieved Changed to amiodarone p.o. Rhythm currently sinus. (4) Ventricular fibrillation: Potassium being corrected Nephrology consult appreciated Underwent ultrafiltration on November 04 and dialysis November 05 Cannot rule ischemic etiology (5) Atrial fibrillation: Placed on amiodarone I have discontinued Cardizem that was initiated in the emergency department. Currently in sinus rhythm Anticoagulated with heparin Qualifiers: Atrial fibrillation type: unspecified Qualified Code(s): I48.91 - Unspecified atrial fibrillation (6) Hypotension: Patient with severe hypotension This most likely is secondary to cardiac arrest as well as sepsis Currently on norepinephrine at 6. At bed patient's midodrine. Qualifiers: Hypotension type: idiopathic hypotension Qualified Code(s): I95.0 - Idiopathic hypotension (7) Sepsis: See findings under hypotension IV antibiotics consisting of linezolid, Zosyn Blood cultures negative to date Fluid from paracentesis obtained. Awaiting culture. Urine culture if urine can be obtained Was not candidate for any fluid bolus on admission secondary to fluid overload. X-ray right lower extremity demonstrated no obvious bone destruction CT chest and abdomen today. No contrast. (8) Type 2 diabetes mellitus: It does not appear like he is on any insulin Monitor blood sugars No sliding scale for now as concern of potential for hypoglycemia Qualifiers: Diabetes mellitus intermediate insulin use: without terminal make up operator use Diabetes mellitus complication status: with kidney complications Diabetes mellitus complication detail: with chronic kidney disease Chronic kidney disease stage: on chronic dialysis Qualified Code(s): E11.22 - Type 2 diabetes mellitus with diabetic chronic kidney disease; N18.6 - End stage renal disease; Z99.2 - Dependence on renal dialysis (9) Abnormal TSH: TSH abnormal, elevated. Started on Synthroid low-dose, 25 mcg secondary to arrhythmia Plan End-stage renal disease on hemodialysis with hyperkalemia. He received calcium. He has received insulin plus glucose. Nephrology consult appreciated. He was ultrafiltrated on November 04. Dialysis was performed November 05 Multiple other medical problems as outlined in past medical history Full code Heparin will suffice for DVT prophylaxis Does not produce significant urine chronically. Discontinue Melgar at this time. Attestations 2 Medical Necessity Statement*: Needs continued hospitalization secondary to respiratory failure requiring mechanical ventilation and sepsis requiring norepinephrine. Critical Care Time: The high probability of a clinically significant, sudden or life threatening deterioration of the patient's [pulmonary, cardiac] system(s) required my full and direct attention, intervention and personal management. The critical care time is as shown. This time is in addition to time spent performing any reported procedures but includes the following: [x] Data and vital sign review and interpretation [x] Patient assessment, examination and intervention [x] Documentation [x] Medication orders and management Critical Care Time (min): 32 Coding Level of Care Code Critical Care >/= 30 minutes Critical care time (in minutes): 32 The high probability of a clinically significant, sudden or life threatening deterioration, as referenced in this documentation, required my full and direct attention, intervention and personal management. The critical care time shown is in addition to time spent performing any reported separately billable procedures and includes the following: [x] Data and vital sign review and interpretation [x ] Patient assessment, examination and intervention [x] Medication orders and management [x] Patient/Family updates as able [x] Care Coordination and Documentation. Diagnoses Chest pain R07.9 Chest pain type: unspecified Acute respiratory failure J96.00 Cardiac arrest I46.9 Ventricular fibrillation I49.01 Atrial fibrillation, unspecified type I48.91 Atrial fibrillation type: unspecified Idiopathic hypotension I95.0 Hypotension type: idiopathic hypotension Sepsis A41.9 Type 2 diabetes mellitus with chronic kidney disease on chronic dialysis, without long-term current use of insulin E11.22; N18.6; Z99.2 Diabetes mellitus intermediate insulin use: without intermediate use Diabetes mellitus complication status: with kidney complications Diabetes mellitus complication detail: with chronic kidney disease Chronic kidney disease stage: on chronic dialysis Abnormal TSH R79.89
[2023-11-07] MEDS: atorvastatin 40 mg Tablet 80 MG PO (07:51)
[2023-11-07] MEDS: amiodarone 200 mg Tablet 400 MG PO ×2 (07:51→18:30)
[2023-11-07] MEDS: aspirin 81 mg EC Tablet PO (07:52)
[2023-11-07] MEDS: midodrine 5 mg TABLET 10 MG PO ×3 (07:52→21:03)
[2023-11-07] MEDS: linezolid premix 600 MG/300 ML PREMIX 300 MG IV ×2 (07:52→21:03)
[2023-11-07] MEDS: pantoprazole 40 mg SDV IVP (07:52)
[2023-11-07] MEDS: clopidogrel 75 mg Tablet PO (07:52)
--- NOTE | 2023-11-07 09:49 | P.PN_ITS ---
Subjective 2 Subjective: remains on vent on levophed Medications: Reviewed: Yes Vitals/I&O/Wt Last Vital Signs Temp 98.5 F 11/07/23 08:00 Pulse 75 11/07/23 08:00 Resp 20 H 11/07/23 07:45 BP 98/66 11/07/23 08:00 Pulse Ox 97 11/07/23 08:00 O2 Del Method Mechanical Ventilation 11/07/23 08:00 O2 Flow Rate 4 11/05/23 06:07 FiO2 40 11/07/23 08:16 11/06/23 11/07/23 11/07/23 22:59 06:59 14:59 Intake Total 1531.927 / 3116.901 1165.114 / 4282.015 442.75 / 442.75 Output Total 2827 / 2827 0 / 2827 Balance -1295.073 / 029.982 7314.114 / 1455.015 442.75 / 442.75 Weight last 48 hrs Weight 127.1 kg Weight 127.1 kg Weight 127.5 kg Weight 128.5 kg Weight 126.1 kg Physical Exam 2 Narrative: intubated , sedated Urinary Catheter Management: Melgar: Cath Placed During This Visit: yes, but has since been removed by the nurse Reason for Continuing Indwelling Catheter: Decision to DC Catheter Urinary Catheter Date of Insertion: 11/05/23 Urinary Catheter Time of Insertion: 07:48 Date Urinary Catheter Removed: 11/06/23 Time Urinary Catheter Discontinued: 12:22 Data 11/07/23 03:54 11/07/23 03:54 Micro: Microbiology 11/05/23 Unknown Gram Stain - Final Peritoneal Fluid Anaerobic Culture - Preliminary Body Fluid Culture - Preliminary 11/05/23 08:00 Gram Stain - Final Sputum - Endotracheal Tube Aspirate Sputum Culture - Preliminary 11/05/23 05:40 Blood Culture - Preliminary Blood NEGATIVE TO DATE 11/05/23 05:35 Blood Culture - Preliminary Blood NEGATIVE TO DATE A&P Assessment and plan (1) End-stage renal disease on hemodialysis: 1. End-stage renal disease: On TTS schedule as outpatient, now patient is hyperkalemic and status post cardiac arrest. -Patient currently on 2 pressors, -s/p hD yesterday, hD again today -Assess daily for HD needs 2. Status post V-fib, ROSC achieved currently on amiodarone and on pressors 3. Chest pain, workup in process, plan for LHC in AM 4. Acute on chronic respiratory failure, currently intubated 5. Hyperkalemia: HD as above 6. Possible sepsis: Workup in process. 7. Anemia: Hemoglobin 10.7 , monitor, ALBERTO with HD. Patient evaluated using audiovisual cart. Time spent 40 minutes Attestations 2 Medical Necessity Statement*: per davidks Coding Level of Care Code Acute Code for Chg Fwd Diagnoses End-stage renal disease on hemodialysis N18.6; Z99.2
[2023-11-07] MEDS: heparin, porcine 1,000 unit/mL INJ 10 mL 1000 UNIT IV (12:05)
--- NOTE | 2023-11-07 14:25 | XR_ITS ---
WS: [id number] PORTABLE CHEST HISTORY: Post PICC insertion COMPARISON: 11/07/2023 Right-sided PICC line has been inserted with tip at the caval atrial junction. The RIGHT central line is no longer present. Lung volumes are decreased. Hazy opacifications over the mid to lower lung ray. Opacifications due to atelectasis and fluid. Cardiac size: Normal. Mediastinum/Aorta: Atherosclerosis aorta. Endotracheal tube is in good position. No osseous abnormality seen. IMPRESSION: 1. Satisfactory RIGHT PICC line. Tip at the cavoatrial junction. 2. RIGHT central line is no longer present.
[2023-11-07] MEDS: propofol 1,000 MG/100 ML INJ 23.8099999999999987 MG IV ×2 (14:59→19:00)
[2023-11-07] MEDS: norepinephrine 4 MG/250 ML BAG 15 MG IV (15:19)
--- NOTE | 2023-11-07 16:47 | PICC.NOTE ---
Triple lumen PICC placed to right basilic vein. Referred to vascular access nurse for PICC placement due to need for multiple IV meds including vasopressors and heparin. Risks and benefits discussed and informed consent obtained from patient via phone. Right arm assessed with right basilic vein measuring 4.6 mm, straight, and apparent best choice for placement. Using sterile technique and MST, right basilic vein accessed x 1 stick. Mid-arm circumference measured 10 cm from right AC 28 cm. Trimmed cath 45 cm with 1 cm external length noted. CXR shows tip in SVC, cavoatrial junction, in good position for use per radiologist. Line secured with stat-lock. Insertion site covered with Biopatch, gauze, and TSM. Report given to bedside nurseDelfino.
[2023-11-07 18:00] LABS: Partial Thromboplastin Time 75.2 SECONDS (23.9-36.7)
[2023-11-07] MEDS: fentaNYL 1,000 MCG/100 ML BAG 15 MCG IV (20:02)
[2023-11-07] MEDS: propofol 1,000 MG/100 ML INJ 20.4100000000000001 MG IV (23:36)
[2023-11-08] VITALS (54 sets, daily range): BP systolic 83–142; BP diastolic 42–79; PULSE 63–85; RESP 18–21; TEMP 36.1–36.9; O2SAT 84–100
[2023-11-08] MEDS: piperacillin-tazobactam 3.375 GM in sodium chloride 0.9% (plus) 50 ML IV ×3 (02:19→17:21)
[2023-11-08] MEDS: chlorhexidine gluconate 4% Btl 118 mL 1 APPLIC TOPICAL (02:20)
[2023-11-08] MEDS: fentaNYL 1,000 MCG/100 ML BAG 15 MCG IV ×4 (02:43→21:34)
[2023-11-08 04:33] LABS: ABG PCO2 39.8 mmHg (35-45); ABG PH Result 7.48 (7.35-7.45); Arterial Blood Gas Hematocrit 32.9 % (42-52); Blood Gas Allen Test Pos; Blood Gas Sample Site Radial, right; Blood Gas Sample Type Arterial; Blood Gas Tidal Volume 0.45; HCO3 ABG 29.9 mmol/L (22-26); Oxygen Device VENT; PO2 ABG 68.2 mmHg (80.0-100.0); PO2 FiO2 Ratio Arterial Blood 0
[2023-11-08] MEDS: propofol 1,000 MG/100 ML INJ 20.4100000000000001 MG IV ×4 (05:01→22:02)
[2023-11-08 05:06] LABS: Basophils # 0.1 10^3/uL (0.0-0.1); Eosinophils # 0.7 10^3/uL (0.0-0.8); Eosinophils % 11.2 %; Hematocrit 33.4 % (37-53); Lymphocytes # 0.4 10^3/uL (0.8-4.8); Lymphocytes % 6.8 %; Mean Corpuscular HGB Conc 30.2 g/dL (30-55); Mean Corpuscular Hemoglobin 27.4 pg (27-33); Mean Corpuscular Volume 90.5 fl (82-101); Mean Platelet Volume 11.2 fL (7.4-10.4); Monocytes # 0.5 10^3/uL (0.2-0.9); Monocytes % 8.2 %; Neutrophils # 4.26 10^3/uL (1.8-7.7); Neutrophils % 72.5 %; Nucleated Red Blood Cells % 0 %; Platelet Count 111 10^3/cmm (157-399); Red Blood Count 3.69 10^6/uL (3.85-5.65); Red Cell Distribution Width 17.3 % (12.1-15.1); White Blood Count 5.88 10^3/uL (3.29-11.43)
[2023-11-08 05:20] LABS: Partial Thromboplastin Time 63.8 SECONDS (23.9-36.7)
[2023-11-08 05:29] LABS: Alanine Aminotransferase 8 U/L (0-41); Albumin Level 2.4 g/dL (3.5-5.2); Alkaline Phosphatase 76 U/L (40-130); Anion Gap 18.9 (5-19); Aspartate Amino Transferase 14 U/L (0-40); Blood Urea Nitrogen 35 mg/dL (6-20); Calcium 7.9 mg/dL (8.5-10.5); Carbon Dioxide 27 mmol/L (22-29); Chloride 96 mmol/L (98-107); Creatinine Clr Calc Pharmacy 24.9945; Glomerular Filtration Rate 13.1 mL/min (90-130); Glucose 73 mg/dL (65-115); Magnesium 1.7 mg/dL (1.7-2.3); Osmolality Calculated 291 mOsm/kg (285-295); Potassium 4.9 mmol/L (3.5-5.1); Sodium 137 mmol/L (136-145); Total Bilirubin 0.6 mg/dL (0.15-1.2); Total Protein 6.4 g/dL (6.6-8.7)
[2023-11-08] MEDS: venlafaxine ER (24HR) 75 mg Capsule PO (05:41)
[2023-11-08] MEDS: levothyroxine 25 mcg Tablet PO (05:42)
--- NOTE | 2023-11-08 06:38 | PM.PN ---
Subjective Subjective: Patient had severe ISR of proximal to mid LAD stent and underwent successful revascularization with balloon angioplasty. It is an underexpanded old stent. Vitals/I&O/Wt Last Vital Signs Temp 97.7 F 11/08/23 04:00 Pulse 72 11/08/23 06:00 Resp 20 H 11/08/23 04:00 BP 94/49 11/08/23 06:00 Pulse Ox 94 11/08/23 06:00 O2 Del Method Mechanical Ventilation 11/08/23 06:00 O2 Flow Rate 4 11/05/23 06:07 FiO2 40 11/08/23 06:00 11/07/23 11/07/23 11/08/23 14:59 22:59 06:59 Intake Total 854.971 / 007.540 1311.372 / 2340.343 620.223 / 2960.566 Output Total 3300 / 3300 Balance 854.971 / 854.971 -1814.628 / -959.657 620.223 / -339.434 Weight last 48 hrs Weight 275 lb 4.8 oz Weight 271 lb 9.752 oz Weight 280 lb 3.32 oz Weight 280 lb 3.32 oz Weight 281 lb 1.43 oz Physical Exam Narrative: GENERAL: Patient is intubated and sedated. NECK: No jugular vein distension. [] HEENT: No cyanosis. No icterus. No pallor. [] HEART: Regular S1 and S2.Has grade 3/6 systolic murmur LUNGS: Clear to auscultate bilaterally. [] CENTRAL NERVOUS SYSTEM: Grossly nonfocal. [] EXTREMITIES: Left BKA. Urinary Catheter Management: Melgar: Cath Placed During This Visit: yes, but has since been removed by the nurse Reason for Continuing Indwelling Catheter: Decision to DC Catheter Urinary Catheter Date of Insertion: 11/05/23 Urinary Catheter Time of Insertion: 07:48 Date Urinary Catheter Removed: 11/06/23 Time Urinary Catheter Discontinued: 12:22 Data 11/09/23 04:12 11/09/23 04:12 Micro: Microbiology 11/05/23 Unknown Gram Stain - Final Peritoneal Fluid Anaerobic Culture - Preliminary Body Fluid Culture - Preliminary 11/05/23 08:00 Gram Stain - Final Sputum - Endotracheal Tube Aspirate Sputum Culture - Final Jhony diaz A&P Assessment and plan (1) Ventricular fibrillation: (2) Atherosclerotic heart disease of [place] coronary artery with other forms of angina pectoris: (3) Type 2 diabetes mellitus: Qualifiers: Diabetes mellitus terminal gauger insulin use: without correction use Diabetes mellitus complication status: with kidney complications Diabetes mellitus complication detail: with chronic kidney disease Chronic kidney disease stage: on chronic dialysis Qualified Code(s): E11.22 - Type 2 diabetes mellitus with diabetic chronic kidney disease; N18.6 - End stage renal disease; Z99.2 - Dependence on renal dialysis (4) End-stage renal disease on hemodialysis: (5) Anemia: Qualifiers: Anemia type: iron deficiency Iron deficiency anemia type: other iron deficiency Qualified Code(s): D50.8 - Other iron deficiency anemias (6) Acute and chronic respiratory failure with hypoxia: (7) Atrial fibrillation: Qualifiers: Atrial fibrillation type: unspecified Qualified Code(s): I48.91 - Unspecified atrial fibrillation (8) Ascites: Qualifiers: Ascites type: other type Qualified Code(s): R18.8 - Other ascites (9) Hypotension: Qualifiers: Hypotension type: idiopathic hypotension Qualified Code(s): I95.0 - Idiopathic hypotension (10) Aortic stenosis: Plan Performed balloon angioplasty of severe 70% ISR of the proximal to mid LAD stent. All vessels were patent. CAD does not explain cardiac arrest however the stenosis could cause chest discomfort episodes he was having. Continue dual antiplatelet therapy. Thank you for involving us with care of this patient. We will continue to follow. Please call with questions. Attestations Medical Necessity Statement*: Care expected to cross 2 midnights. Coding Level of Care Code Acute Code for [facility] Diagnoses Ventricular fibrillation I49.01 Atherosclerotic heart disease of [place] coronary artery with other forms of angina pectoris I25.118 Type 2 diabetes mellitus with chronic kidney disease on chronic dialysis, without long-term current use of insulin E11.22; N18.6; Z99.2 Diabetes mellitus terminal gauger insulin use: without correction use Diabetes mellitus complication status: with kidney complications Diabetes mellitus complication detail: with chronic kidney disease Chronic kidney disease stage: on chronic dialysis End-stage renal disease on hemodialysis N18.6; Z99.2 Other iron deficiency anemia D50.8 Anemia type: iron deficiency Iron deficiency anemia type: other iron deficiency Acute and chronic respiratory failure with hypoxia J96.21 Atrial fibrillation, unspecified type I48.91 Atrial fibrillation type: unspecified Other ascites R18.8 Ascites type: other type Idiopathic hypotension I95.0 Hypotension type: idiopathic hypotension Aortic stenosis I35.0
--- NOTE | 2023-11-08 06:41 | XACV_ITS ---
Exam Room: [facility] Ht: 185 cm Wt: 125 kg BSA: 2.58 m2 Gender: Male : 1970 Any Known Allergies: Other Exam Priority: Routine Procedure(s): Procedure Description: Diagnostic procedure Procedure Description: Coronary angiogram Procedure Description: Left heart cath Procedure Description: Right heart cath Procedure Description: PTCA Diagnostic Cath Status: Urgent Diagnostic Findings * INDICATION: Patient had presented to hospital with chest pain and had V-fib arrest. It was in setting of hyperkalemia. However given chest pain prior to cardiac arrest, we will proceed with coronary angiogram. * Left Main has no significant disease. Patent prior stent. * Circumflex has patent prior stent. OM1 has patent prior stent with some possible haziness. Imaging quality is not good on angiogram.. * Right Coronary Artery has no significant disease. * Proximal to mid Left Anterior Descending: Prior stent has 70% in-stent restenosis.. * Coronary angiography shows right dominance. PCI Status: Urgent PCI Indication: Other Interventional Findings * Procedure detail: We engaged left main artery with XB 3.5 guide catheter. A 0.014 run-through guidewire was used to cross the severe in-stent restenosis of proximal to mid LAD stent. We attempted to cross with IVUS catheter however it did not cross the stenosis. We then proceeded with dilation of with prior stent in the LAD with 2.75 x 15 mm NC balloon at high pressure. It improved ISR. Imaging quality of the study was not good. There was possible haziness in OM 1 stent proximally. No severe stenosis was seen. However we proceeded with ballooning it with 2.75 x 15 mm NC balloon. At this time final angiogram was performed that showed good flow in all vessels. Guidewire and guide catheter were removed. Patient left the Band Sawyer in a stable condition.. * Mid Left Anterior Descendin% stenosis treated with a MDT NC EUPHORA RX 2.80I38WQ BALLOON. 0% residual stenosis, HEATHER: 3 flow. Conclusions 1. Severe in-stent restenosis of proximal to mid LAD stent. S/p successful revascularization with 2. balloon angioplasty. Haziness seen in first OM branch stent. Balloon angioplasty performed. 3. Severely elevated right and left-sided cardiac pressures. 4. Moderate aortic stenosis with mean gradient of 35mmHg. 5. Severe mixed pulmonary hypertension. 6. Mid Left Anterior Descending was treated with a Balloon. 7. First Obtuse Marginal Branch Segment was treated with a Balloon. Recommendations * Continue dual antiplatelet therapy with aspirin and plavix. * High intensity statin therapy. * Transfer to ICU. Interventional RX Recommendation: PCI w/o planned CABG Diagnostic RX Recommendation: PCI w/o planned CABG Anticoagulation: Heparin Pressures Phase:Rest AO : 97 / 70 ( 80 ) @ 12:30:00 PM 88 / 75 ( 81 ) @ 12:32:00 PM 92 / 59 ( 72 ) @ 12:42:00 PM 91 / 59 ( 73 ) @ 12:42:00 PM 64 / 46 ( 53 ) @ 12:59:00 PM LV : 145 / 0 / 20 @ 12:42:00 PM 145 / 0 / 20 @ 12:42:00 PM RV : 85 / 8 / 28 @ 12:28:00 PM PA : 83 / 40 ( 53 ) @ 12:23:00 PM RA : a wave = 32 v wave = 30 mean = 27 @ 12:28:00 PM PCW : a wave = 23 v wave = 24 mean = 22 @ 12:27:00 PM O2 Content Phase:Rest PA : O2 Content O2: 63.5 @ 12:32:00 PM Saturations Phase:Rest AO : 95 @ 12:30:00 PM PA : 64 @ 12:32:00 PM Cardiac Output Phase:Rest Jennie : 7 @ 12:26:19 PM Jennie Cardiac Index: 3 @ 12:26:19 PM Flow Phase:Rest Qp : 7 @ 12:26:19 PM Qs : 7 @ 12:26:19 PM Valves Phase:DefaultPhase AV : 50.0 @ 12:26:19 PM 50.0 @ 12:26:19 PM AV Mean Gradient: 35.0 @ 12:26:19 PM 35.0 @ 12:26:19 PM AV Flow: 356 @ 12:26:19 PM AV Area: 1.4 @ 12:26:19 PM AV Area Index: 0.55 @ 12:26:19 PM Clinical Evaluation EBL: 5mL-10mL Procedural Details Pre-Procedure Time Out. Identified patient by full name and date of as verbalized by the patient/guarantor. Does the consent match the physician's order: Yes. Accurate & Complete Informed Consent: Yes. Inpatient/Outpatient History & Physical on Chart: Yes. If H&P is completed, is and addenduem needed: No; If yes, is the addendum complete: N/A. Visualize and Verify Site with Patient/Guarantor: N/A. Relevant Radiology Images available: Yes. Pre-op teaching completed and patient verbalized understanding. The risks, benefits, and alternatives of sedation and/or procedure were discussed by physician. The patient agrees to continue. Procedure started. [facility] Clinical Fraility Score: 7: Severely Frail. Band Sawyer Indications: ACS > 24 hours. Chest Pain Symptom Assessment: Typical Angina Symptoms. Correct patient, site and procedure confirmed by cath team. Current diagnosis: NSTEMI. PERRLA. Strong, equal hand territory manager general sales bilaterally. Lungs clear x 5 lobes. IV Site on Arrival: 18 gauge in the left anticubital. Baseline sample Acquired. HR: 82 BPM. Physician arrived. Physician scrubbed in. Immediate Pre-Procedure Time Out. Correct Patient: Yes; Correct Procedure: Yes; Correct Site: Yes; Correct Patient Position: Yes; Correct Supplies: Yes; Dried Flammable Prep: Yes; Blood Products Available: N/A;. Lidocaine 1% infiltrated to the left groin. Ultrasound being used to obtain access. Arterial access obtained with micropuncture set. Venous access obtained with a micropuncture set. Arcadia-Edmundo MON catheter inserted. The patient arrived to the experimental machining lab manager on the ventilator and on a Propofol drip. The vent is being managed by respiratory therapy and the Propofol drip is being managed by Damian Garcia INTERNET RESEARCHER. 0.025 wire inserted through the swan catheter. Oximetry samples were obtained. Normal venous range: 60-85%. Normal arterial range: 95-100%. ABG drawn and sent with respiratory therapy. Arcadia-Edmundo out. A 5 nigerian JL4 catheter in over wire. Multiple views taken of left coronary artery. Catheter removed over the standard wire. A 5 nigerian JR4 catheter in over wire. EDP Sample taken: LV 145/0,20; HR: 71 BPM; SpO2: 96%. Pullback taken: LV 145/0,20; AO 92/59(72); Mean: 35mmHg, Peak to Peak: 50mmHg, SEP: 20sec/min; HR: 85 BPM; SpO2: 96%. Catheter removed over the standard wire. 6 nigerian XB 3.5 guide catheter was inserted over the wire. Runthrough guidewire was advanced through the guide catheter to lesion in the mid LAD. IVUS catheter inserted and advanced to the Mid LAD. IVUS measurements obtained. IVUS catheter out OTW. Inflation number : 1 A MDT NC EUPHORA RX [id number] BALLOON was prepped and advanced across the Mid LAD , then inflated to 20 CORRIE for 0:27 seconds. Inflation number: 2 The MDT NC EUPHORA RX [id number] BALLOON was reinflated across the Mid LAD, to 20 CORRIE for 0:11 seconds. Balloon out. Wire redirected to the OM. IVUS catheter inserted and advanced to the OM. IVUS catheter unable to cross. Catheter out OTW. Balloon inserted to lesion in the OM. Balloon out. Inflation number : 1 A AB TREK 2.75X15 RX BALLOON was prepped and advanced across the 1st Ob Hannah , then inflated to 8 CORRIE for 0:13 seconds. Inflation number: 2 The AB TREK 2.75X15 RX BALLOON was reinflated across the 1st Ob Hannah, to 4 CORRIE for 0:10 seconds. Balloon out. Wire out. ACT drawn. Results out of range high seconds. Therapeutic limits - pre-heparin administration 90-150 seconds and monitoring heparin during a vascular procedure >250 seconds. Guide catheter out. A Left femoral angiogram was performed to determine safe placement of closure device. A Suture was successful obtaining hemostatsis at the Left Femoral vein insertion site. Arterial sheath flushed and connected to tranducer and pressure bag with heparinized saline. Post Procedure: Pulses reassessed and unchanged. PERRLA. Strong, equal hand territory manager general sales bilaterally. No VTE prophylaxis required. Total IV fluids: 50 mL. Complications: None. Estimated blood loss: 5mL-10mL. Responsiveness - Normal response to verbal stimuli; alert and oriented, PERRLA. Airway - Unaffected, no intervention required; spontaneous ventilation. Circulation: W/N/L, pulses unchanged. Nausea/Vomiting: No. Procedure completed. Patient transferred by bed to ICU. Vital chart was stopped. Access Site Site: Left Femoral artery Sheath Size: 6 Fr Hemostasis Success: Unsuccessful Site: Left Femoral vein Sheath Size: 6 Fr Hemostasis Method: Suture Hemostasis Success: Successful Procedure Medications Start: 11:52 AM Stop: 11:52 AM Medication: Heparin Amount: 70666 units Route: I.V. Start: 11:56 AM Stop: 11:56 AM Medication: Heparin Amount: 1000 units Route: I.V. I, the attending physician, have reviewed and verified all procedure medications. Yes, all medications given per verbal order History/Risk Factors Hypertension: Yes Dyslipidemia: Yes Peripheral Arterial Disease (PAD): Yes Myocardial Infarction (IA): Yes Obesity: Yes Renal Disease: Yes Tobacco Use: Never Dialysis: Current Prior Interventions PCI: Yes CABG: No Valve Surgery: No Date of PCI: 10/17/2023 Report Signatures Finalized by Erik Arguelles MD on 11/14/2023 06:23 PM
--- NOTE | 2023-11-08 07:51 | XRR_ITS ---
PROCEDURE INFORMATION: Exam: XR Chest Exam date and time: 11/08/2023 6:28 AM Age: 53 years old Clinical indication: Other: Resp failure TECHNIQUE: Imaging protocol: Radiologic exam of the chest. Views: 1 view. COMPARISON: [place] [id number] 11/07/2023 5:56 PM 2. CR XR chest 1V portable [id number] 11/07/2023 2:49 PM 3. CR XR chest 1V portable [id number] 11/07/2023 5:59 AM FINDINGS: Tubes, catheters and devices: Endotracheal tube terminates 4.5 cm above the adrianna. Stable right upper extremity PICC terminates at the right atrium. Enteric tube courses below the left hemidiaphragm and terminates beyond the field of view. Lungs: Stable bilateral lower lobe consolidations. Pleural spaces: Small bilateral pleural effusions. No pneumothorax. Heart/Mediastinum: Stable cardiomegaly. Bones/joints: Unremarkable. XR/XR chest 1V portable [id number] IMPRESSION: 1. Stable support structures. 2. Stable pleural effusions and bilateral lower lobe consolidations.
--- NOTE | 2023-11-08 08:09 | P.PN_ITS ---
Subjective 2 Subjective: Patient sedated on the ventilator. Able to undergo dialysis yesterday without events. Angiogram planned today. Central line removed yesterday and PICC line placed. Medications: Reviewed: Yes Vitals/I&O/Wt Last Vital Signs Temp 97.0 F L 11/08/23 07:30 Pulse 75 11/08/23 07:30 Resp 20 H 11/08/23 07:44 BP 100/53 11/08/23 07:30 Pulse Ox 94 11/08/23 07:44 O2 Del Method Mechanical Ventilation 11/08/23 07:30 O2 Flow Rate 4 11/05/23 06:07 FiO2 40 11/08/23 07:44 11/07/23 11/08/23 11/08/23 22:59 06:59 14:59 Intake Total 1485.372 / 2340.343 620.223 / 2960.566 0 / 0 Output Total 3300 / 3300 Balance -1814.628 / -959.657 620.223 / -339.434 0 / 0 Weight last 48 hrs Weight 124.874 kg Weight 123.2 kg Weight 127.1 kg Weight 127.1 kg Weight 127.5 kg Physical Exam 2 Narrative: General exam is a sedated male, on ventilator, becomes alert with stimulation HEENT: Atraumatic and normocephalic. Oropharynx with endotracheal tube. Oropharyngeal tube noted Neck is supple no lymphadenopathy thyromegaly Cardiovascular regular rate and rhythm with a 3/6 systolic murmur Lungs diminished breath sounds bilaterally. No wheezes Abdomen positive bowel sounds. Ascites noted. Some distention from the ascites. Extremities right lower extremity with multiple chronic ulcerations, none appear acutely infected. Pulses difficult to feel. Refill less than 2 seconds. Left with below the knee amputation. Skin no rash Neuro: No obvious focal deficits when awoke Urinary Catheter Management: Melgar: Cath Placed During This Visit: yes, but has since been removed by the nurse Reason for Continuing Indwelling Catheter: Decision to DC Catheter Urinary Catheter Date of Insertion: 11/05/23 Urinary Catheter Time of Insertion: 07:48 Date Urinary Catheter Removed: 11/06/23 Time Urinary Catheter Discontinued: 12:22 Data 11/08/23 04:59 11/08/23 04:59 Micro: Microbiology 11/05/23 Unknown Gram Stain - Final Peritoneal Fluid Anaerobic Culture - Preliminary Body Fluid Culture - Preliminary 11/05/23 08:00 Gram Stain - Final Sputum - Endotracheal Tube Aspirate Sputum Culture - Final Jhony diaz A&P Assessment and plan (1) Chest pain: Original complaint of the patient was chest discomfort Troponin is elevated but trend is not concerning Must still be concerned about coronary disease with recent stenting, October 16 with drug-eluting stent as well as angioplasty. See report for details. Continue heparin drip Echocardiogram, limited, demonstrates EF around 50%. This is slightly improved from previous Cardiology consult appreciated Continue Plavix Continue aspirin Continue statin Angiogram today per cardiology. Qualifiers: Chest pain type: unspecified Qualified Code(s): R07.9 - Chest pain, unspecified (2) Acute respiratory failure: Postcode Patient with acute respiratory f 40% and now a PEEP of 6 Wean ventilator as tolerated FiO2 now 40% Lower lobe consolidation consistent with pneumonia seen on CT. Continue IV antibiotics. Can possibly be extubated soon. Hopefully can get angiogram performed. Consider paracentesis as well to make condition ideal for extubation. (3) Cardiac arrest: Status post V-fib cardiac arrest ROSC achieved Changed to amiodarone p.o. Rhythm currently sinus. Continue higher dose amiodarone to 400 twice daily for 1 week total from initiation (4) Ventricular fibrillation: Potassium has been corrected Nephrology consult appreciated Underwent ultrafiltration on November 04 and dialysis November 05 and November 06 Cannot rule ischemic etiology (5) Atrial fibrillation: Placed on amiodarone, continue 400 mg twice daily as above I have discontinued Cardizem that was initiated in the emergency department. Currently in sinus rhythm Anticoagulated with heparin Qualifiers: Atrial fibrillation type: unspecified Qualified Code(s): I48.91 - Unspecified atrial fibrillation (6) Hypotension: Patient with severe hypotension This most likely is secondary to cardiac arrest as well as sepsis Currently on norepinephrine which has been weaned to 2. Continue patient's midodrine. Qualifiers: Hypotension type: idiopathic hypotension Qualified Code(s): I95.0 - Idiopathic hypotension (7) Sepsis: See findings under hypotension IV antibiotics consisting of linezolid, Zosyn Blood cultures negative to date Fluid from paracentesis obtained. Culture negative to date CT chest abdomen pelvis done yesterday demonstrates bilateral lower lobe pneumonia. Sputum culture shows Juancarlosecea, sensitive to Zosyn. Awaiting MRSA PCR Was not candidate for any fluid bolus on admission secondary to fluid overload. X-ray right lower extremity demonstrated no obvious bone destruction CT chest and abdomen today showed pneumonia but no other sites of infection. (8) Type 2 diabetes mellitus: It does not appear like he is on any insulin Monitor blood sugars No sliding scale for now as concern of potential for hypoglycemia Qualifiers: Diabetes mellitus long term care administrator insulin use: without long term care administrator use Diabetes mellitus complication status: with kidney complications Diabetes mellitus complication detail: with chronic kidney disease Chronic kidney disease stage: on chronic dialysis Qualified Code(s): E11.22 - Type 2 diabetes mellitus with diabetic chronic kidney disease; N18.6 - End stage renal disease; Z99.2 - Dependence on renal dialysis (9) Abnormal TSH: TSH abnormal, elevated. Continue on Synthroid low-dose, 25 mcg secondary to arrhythmia Plan End-stage renal disease on hemodialysis with hyperkalemia. . Nephrology consult appreciated. He was ultrafiltrated on November 04. Dialysis was performed November 05 and November 06 Multiple other medical problems as outlined in past medical history Full code Heparin will suffice for DVT prophylaxis Does not produce significant urine chronically. Melgar was discontinued Attestations 2 Medical Necessity Statement*: Needs continued hospital stay in the ICU secondary to respiratory failure, status postcode, bilateral pneumonia requiring ventilator support and pressors. Critical Care Time: The high probability of a clinically significant, sudden or life threatening deterioration of the patient's [pulmonary, cardiac, infectious disease, renal] s ystem(s) required my full and direct attention, intervention and personal management. The critical care time is as shown. This time is in addition to time spent performing any reported procedures but includes the following: [x] Data and vital sign review and interpretation [x] Patient assessment, examination and intervention [x] Documentation [x] Medication orders and management Critical Care Time (min): 35 Coding Level of Care Code Critical Care >/= 30 minutes Critical care time (in minutes): 35 The high probability of a clinically significant, sudden or life threatening deterioration, as referenced in this documentation, required my full and direct attention, intervention and personal management. The critical care time shown is in addition to time spent performing any reported separately billable procedures and includes the following: [x] Data and vital sign review and interpretation [x ] Patient assessment, examination and intervention [x] Medication orders and management [x] Patient/Family updates as able [x] Care Coordination and Documentation. Diagnoses Chest pain R07.9 Chest pain type: unspecified Acute respiratory failure J96.00 Cardiac arrest I46.9 Ventricular fibrillation I49.01 Atrial fibrillation, unspecified type I48.91 Atrial fibrillation type: unspecified Idiopathic hypotension I95.0 Hypotension type: idiopathic hypotension Sepsis A41.9 Type 2 diabetes mellitus with chronic kidney disease on chronic dialysis, without long-term current use of insulin E11.22; N18.6; Z99.2 Diabetes mellitus long term care administrator insulin use: without usp use Diabetes mellitus complication status: with kidney complications Diabetes mellitus complication detail: with chronic kidney disease Chronic kidney disease stage: on chronic dialysis Abnormal TSH R79.89
--- NOTE | 2023-11-08 09:34 | PM.PN ---
Subjective Subjective: remains on vent Medications: Reviewed: Yes Vitals/I&O/Wt Last Vital Signs Temp 97.0 F L 11/08/23 07:30 Pulse 75 11/08/23 07:30 Resp 20 H 11/08/23 07:44 BP 100/53 11/08/23 07:30 Pulse Ox 94 11/08/23 07:44 O2 Del Method Mechanical Ventilation 11/08/23 07:30 O2 Flow Rate 4 11/05/23 06:07 FiO2 40 11/08/23 07:44 11/07/23 11/08/23 11/08/23 22:59 06:59 14:59 Intake Total 1485.372 / 2340.343 620.223 / 2960.566 357.872 / 357.872 Output Total 3300 / 3300 Balance -1814.628 / -959.657 620.223 / -339.434 357.872 / 357.872 Weight last 48 hrs Weight 124.874 kg Weight 123.2 kg Weight 127.1 kg Weight 127.1 kg Weight 127.5 kg Physical Exam Narrative: intubated , sedated Urinary Catheter Management: Melgar: Cath Placed During This Visit: yes, but has since been removed by the nurse Reason for Continuing Indwelling Catheter: Decision to DC Catheter Urinary Catheter Date of Insertion: 11/05/23 Urinary Catheter Time of Insertion: 07:48 Date Urinary Catheter Removed: 11/06/23 Time Urinary Catheter Discontinued: 12:22 Data 11/08/23 04:59 11/08/23 04:59 Micro: Microbiology 11/05/23 Unknown Gram Stain - Final Peritoneal Fluid Anaerobic Culture - Preliminary Body Fluid Culture - Preliminary 11/05/23 08:00 Gram Stain - Final Sputum - Endotracheal Tube Aspirate Sputum Culture - Final Jhony diaz A&P Assessment and plan (1) End-stage renal disease on hemodialysis: 1. End-stage renal disease: On TTS schedule as outpatient, was hyperkalemic and status post cardiac arrest. -Patient currently on pressors, -s/p hD yesterday, -Assess daily for HD needs 2. Status post V-fib, ROSC achieved currently on amiodarone and on pressors 3. Chest pain, workup in process, plan for [facility] today 4. Acute on chronic respiratory failure, currently intubated 5. Hyperkalemia: improved 6. Possible sepsis: Workup in process. 7. Anemia: Hemoglobin 10.7 , monitor, ALBERTO with HD. Patient evaluated using audiovisual cart. Time spent 40 minutes Attestations Medical Necessity Statement*: per medicine Coding Level of Care Code Acute Code for Chg Fwd Diagnoses End-stage renal disease on hemodialysis N18.6; Z99.2
[2023-11-08] MEDS: aspirin 81 mg EC Tablet PO (09:53)
[2023-11-08] MEDS: amiodarone 200 mg Tablet 400 MG PO ×2 (09:53→17:21)
[2023-11-08] MEDS: pantoprazole 40 mg SDV IVP (09:53)
[2023-11-08] MEDS: atorvastatin 40 mg Tablet 80 MG PO (09:54)
[2023-11-08] MEDS: linezolid premix 600 MG/300 ML PREMIX 300 MG IV ×2 (09:54→20:49)
[2023-11-08] MEDS: midodrine 5 mg TABLET 10 MG PO ×3 (09:54→20:49)
[2023-11-08] MEDS: clopidogrel 75 mg Tablet PO (09:54)
--- NOTE | 2023-11-08 10:50 | PC.NURSE ---
To laborer electroplating via bed with laborer electroplating team, RT, and this RN at this time.
--- NOTE | 2023-11-08 11:06 | W.PM.OPSUD ---
Surgery/Procedure H&P Update DATE OF PROCEDURE: November 08, 2023 DATE H&P PERFORMED: 11/05/23 H&P UPDATE INFORMATION: I have reviewed H&P completed within last 30 days, I have examined patient prior to procedure and Changes to prior documentation as noted here CHANGES TO PREVIOUS DOCUMENTATION: Patient had presented to hospital with chest pain. Had V-fib arrest in ER. No ST elevation FL seen. He has been treated as non-ST elevation FL. Other etiologies for cardiac arrest were hyperkalemia and patient was febrile. Plan for right and left heart cath with possible PCI. Consent obtained from his PREOP DIAGNOSIS: V fib cardiac arrest/NSTEMI PRIMARY INDICATION FOR PROCEDURE: V fib cardiac arrest/NSTEMI PLANNED PROCEDURE: Right heart cath/Left heart cath with possible PCI Patient is intubated and sedated PATIENT REASSESSED PRIOR TO SEDATION, WITH NO CHANGE NOTED: Yes PHYSICAL EXAM: clear to auscultation bilaterally and regular rate & rhythm
[2023-11-08 11:30] LABS: Arterial Blood Gas Hematocrit 34.2 % (42-52); Blood Gas Operator Identificat GD; Blood Gas Sample Site Not specified; Blood Gas Sample Type Venous; Carboxyhemoglobin 0.6 %THgb (0.4-20.1); HGB O2 Sat 93.6 % (95-100); Methemoglobin 0.7 % (0.4-1.5); Oxygen Device VENT; Total Hemoglobin 11.2 g/dL (14-18)
[2023-11-08 11:32] LABS: Blood Gas Operator Identificat GD; Blood Gas Sample Site Not specified; Blood Gas Sample Type Venous; Carboxyhemoglobin 1.5 %THgb (0.4-20.1); Methemoglobin 0.9 % (0.4-1.5); Oxygen Device VENT; Total Hemoglobin 11.1 g/dL (14-18)
[2023-11-08] MEDS: norepinephrine 4 MG/250 ML BAG 22.5 MG IV (12:53)
[2023-11-08] MEDS: propofol 1,000 MG/100 ML INJ 23.8099999999999987 MG IV (12:53)
[2023-11-08 14:56] LABS: Partial Thromboplastin Time 51.8 SECONDS (23.9-36.7)
--- NOTE | 2023-11-08 16:58 | PC.NURSE ---
1605 Arterial and venous sheath pulled from Left Femoral site. Pressure held for 25 minutes. No hematoma formation noted. Less than 5 ml blood loss. Dressing applied.
[2023-11-09] VITALS (63 sets, daily range): BP systolic 86–130; BP diastolic 48–82; PULSE 60–100; RESP 18–19; TEMP 36.4–36.8; O2SAT 95–100; BMI 36.3
[2023-11-09] MEDS: piperacillin-tazobactam 3.375 GM in sodium chloride 0.9% (plus) 50 ML IV ×3 (01:45→19:06)
[2023-11-09] MEDS: propofol 1,000 MG/100 ML INJ 20.4100000000000001 MG IV ×2 (02:17→06:42)
[2023-11-09] MEDS: chlorhexidine gluconate 4% Btl 118 mL 1 APPLIC TOPICAL (02:30)
[2023-11-09] MEDS: norepinephrine 4 MG/250 ML BAG 15 MG IV (04:15)
[2023-11-09] MEDS: fentaNYL 1,000 MCG/100 ML BAG 15 MCG IV (04:15)
[2023-11-09 04:33] LABS: Basophils # 0.1 10^3/uL (0.0-0.1); Basophils % 0.7 %; Eosinophils # 0.7 10^3/uL (0.0-0.8); Eosinophils % 6.2 %; Hematocrit 37.4 % (37-53); Lymphocytes # 0.4 10^3/uL (0.8-4.8); Lymphocytes % 3.7 %; Mean Corpuscular HGB Conc 29.1 g/dL (30-55); Mean Corpuscular Hemoglobin 26.4 pg (27-33); Mean Corpuscular Volume 90.6 fl (82-101); Mean Platelet Volume 10.8 fL (7.4-10.4); Monocytes # 0.9 10^3/uL (0.2-0.9); Monocytes % 8.4 %; Neutrophils # 8.63 10^3/uL (1.8-7.7); Neutrophils % 80.8 %; Nucleated Red Blood Cells % 0 %; Platelet Count 109 10^3/cmm (157-399); Red Blood Count 4.13 10^6/uL (3.85-5.65); Red Cell Distribution Width 17.2 % (12.1-15.1); White Blood Count 10.67 10^3/uL (3.29-11.43)
[2023-11-09 05:04] LABS: Alanine Aminotransferase 9 U/L (0-41); Albumin Level 2.6 g/dL (3.5-5.2); Alkaline Phosphatase 177 U/L (40-130); Anion Gap 22.2 (5-19); Aspartate Amino Transferase 19 U/L (0-40); Blood Urea Nitrogen 40 mg/dL (6-20); Calcium 8.2 mg/dL (8.5-10.5); Carbon Dioxide 24 mmol/L (22-29); Chloride 91 mmol/L (98-107); Globulin 4.6 g/dL (1.3-4.6); Glomerular Filtration Rate 10.7 mL/min (90-130); Glucose 111 mg/dL (65-115); Magnesium 1.9 mg/dL (1.7-2.3); Osmolality Calculated 284 mOsm/kg (285-295); Potassium 5.2 mmol/L (3.5-5.1); Sodium 132 mmol/L (136-145); Total Bilirubin 0.7 mg/dL (0.15-1.2); Total Protein 7.2 g/dL (6.6-8.7)
[2023-11-09] MEDS: venlafaxine ER (24HR) 75 mg Capsule PO (05:57)
[2023-11-09] MEDS: levothyroxine 25 mcg Tablet PO (05:57)
--- NOTE | 2023-11-09 07:10 | PM.PN ---
Subjective Subjective: Patient is still intubated. Waking up. Had balloon angioplasty of proximal to mid LAD significant in-stent restenosis yesterday Vitals/I&O/Wt Last Vital Signs Temp 98.1 F 11/09/23 04:00 Pulse 70 11/09/23 06:00 Resp 18 11/09/23 06:00 BP 112/67 11/09/23 06:00 Pulse Ox 97 11/09/23 06:00 O2 Del Method Mechanical Ventilation 11/09/23 06:00 O2 Flow Rate 40 11/08/23 10:30 FiO2 40 11/09/23 06:00 11/08/23 11/09/23 11/09/23 22:59 06:59 14:59 Intake Total 694.370 / 1606.289 540.387 / 2146.676 Output Total 0 / 0 Balance 694.370 / 1606.289 540.387 / 2146.676 Weight last 48 hrs Weight 275 lb Weight 275 lb Weight 275 lb 4.8 oz Weight 271 lb 9.752 oz Physical Exam Narrative: GENERAL: Patient is intubated and sedated. NECK: No jugular vein distension. [] HEENT: No cyanosis. No icterus. No pallor. [] HEART: Regular S1 and S2.Has grade 3/6 systolic murmur LUNGS: Clear to auscultate bilaterally. [] CENTRAL NERVOUS SYSTEM: Grossly nonfocal. [] EXTREMITIES: Left BKA. 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: (3) Type 2 diabetes mellitus: Qualifiers: Diabetes mellitus press tender long goods insulin use: without group home use Diabetes mellitus complication status: with kidney complications Diabetes mellitus complication detail: with chronic kidney disease Chronic kidney disease stage: on chronic dialysis Qualified Code(s): E11.22 - Type 2 diabetes mellitus with diabetic chronic kidney disease; N18.6 - End stage renal disease; Z99.2 - Dependence on renal dialysis (4) End-stage renal disease on hemodialysis: (5) Anemia: Qualifiers: Anemia type: iron deficiency Iron deficiency anemia type: other iron deficiency Qualified Code(s): D50.8 - Other iron deficiency anemias (6) Acute and chronic respiratory failure with hypoxia: (7) Atrial fibrillation: Qualifiers: Atrial fibrillation type: unspecified Qualified Code(s): I48.91 - Unspecified atrial fibrillation (8) Ascites: Qualifiers: Ascites type: other type Qualified Code(s): R18.8 - Other ascites (9) Hypotension: Qualifiers: Hypotension type: idiopathic hypotension Qualified Code(s): I95.0 - Idiopathic hypotension (10) Aortic stenosis: Plan Patient had balloon angioplasty of 70% ISR of proximal to mid LAD stent. Continue aspirin and plavix. Thank you for involving us with care of this patient. We will continue to follow. Please call with questions. Attestations Medical Necessity Statement*: Care expected to cross 2 midnights. 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 I25.118 Type 2 diabetes mellitus with chronic kidney disease on chronic dialysis, without long-term current use of insulin E11.22; N18.6; Z99.2 Diabetes mellitus press tender long goods insulin use: without press tender long goods use Diabetes mellitus complication status: with kidney complications Diabetes mellitus complication detail: with chronic kidney disease Chronic kidney disease stage: on chronic dialysis End-stage renal disease on hemodialysis N18.6; Z99.2 Other iron deficiency anemia D50.8 Anemia type: iron deficiency Iron deficiency anemia type: other iron deficiency Acute and chronic respiratory failure with hypoxia J96.21 Atrial fibrillation, unspecified type I48.91 Atrial fibrillation type: unspecified Other ascites R18.8 Ascites type: other type Idiopathic hypotension I95.0 Hypotension type: idiopathic hypotension Aortic stenosis I35.0
--- NOTE | 2023-11-09 07:18 | P.PN_ITS ---
Subjective 2 Subjective: remains on vent Medications: Reviewed: Yes Vitals/I&O/Wt Last Vital Signs Temp 97.5 F L 11/09/23 16:11 Pulse 77 11/09/23 16:11 Resp 19 H 11/09/23 16:11 BP 114/68 11/09/23 16:11 Pulse Ox 97 11/09/23 13:00 O2 Del Method Mechanical Ventilation 11/09/23 06:00 O2 Flow Rate 40 11/08/23 10:30 FiO2 40 11/09/23 13:00 11/09/23 11/09/23 11/09/23 06:59 14:59 22:59 Intake Total 540.387 / 2146.676 554.494 / 554.494 300 / 854.494 Output Total 5200 / 5200 2800 / 8000 Balance 540.387 / 2146.676 -4645.506 / -4645.506 -2500 / -7145.506 Weight last 48 hrs Weight 119.5 kg Weight 124.738 kg Weight 124.738 kg Weight 124.874 kg Physical Exam 2 Narrative: intubated , sedated Urinary Catheter Management: Melgar: Cath Placed During This Visit: yes, but has since been removed by the nurse Reason for Continuing Indwelling Catheter: Decision to DC Catheter Urinary Catheter Date of Insertion: 11/05/23 Urinary Catheter Time of Insertion: 07:48 Date Urinary Catheter Removed: 11/06/23 Time Urinary Catheter Discontinued: 12:22 Data 11/09/23 04:12 11/09/23 04:12 Micro: Microbiology 11/05/23 Unknown Gram Stain - Final Peritoneal Fluid Anaerobic Culture - Preliminary Body Fluid Culture - Final A&P Assessment and plan (1) End-stage renal disease on hemodialysis: 1. End-stage renal disease: On TTS schedule as outpatient, was hyperkalemic and status post cardiac arrest. -HD today -Assess daily for HD needs 2. Status post V-fib, ROSC achieved currently on amiodarone and on pressors 3. Chest pain, workup in process, s/p LHC 4. Acute on chronic respiratory failure, currently intubated 5. Hyperkalemia: improved 6. Possible sepsis: Workup in process. 7. Anemia: Hemoglobin 10.7 , monitor, ALBERTO with HD. Patient evaluated using audiovisual cart. Time spent 20 minutes Attestations 2 Medical Necessity Statement*: per mediicne Coding Level of Care Code Acute Code for Chg Fwd Diagnoses End-stage renal disease on hemodialysis N18.6; Z99.2
--- NOTE | 2023-11-09 07:27 | XR_ITS ---
WS: [id number] Portable AP supine chest, 11/09/2023 Clinical Data: resp failure Comparison: Portable chest, 11/08/2023 Findings: The endotracheal tube, nasogastric tube and right PICC line remain in the same position. Th ere are bilateral lower lobe opacities which probably represent pneumonia, atelectasis and or effusio n. The heart remains enlarged. Monitor leads are on the chest wall. Impression: No change from yesterday's portable chest.
[2023-11-09 07:50] LABS: ABG PCO2 40.9 mmHg (35-45); ABG PH Result 7.43 (7.35-7.45); Arterial Blood Gas Hematocrit 34.7 % (42-52); Base Excess ABG 2.3 mmol/L (-2.0-2.0); Blood Gas Allen Test Pos; Blood Gas Operator Identificat MONRO; Blood Gas Sample Site Radial, right; Blood Gas Sample Type Arterial; Blood Gas Tidal Volume 0.45; HCO3 ABG 26.9 mmol/L (22-26); Oxygen Device VENT; PO2 ABG 91.9 mmHg (80.0-100.0); PO2 FiO2 Ratio Arterial Blood 0
[2023-11-09] MEDS: atorvastatin 40 mg Tablet 80 MG PO (09:00)
[2023-11-09] MEDS: clopidogrel 75 mg Tablet PO (09:00)
[2023-11-09] MEDS: amiodarone 200 mg Tablet 400 MG PO ×2 (09:00→19:06)
[2023-11-09] MEDS: aspirin 81 mg EC Tablet PO (09:00)
[2023-11-09] MEDS: pantoprazole 40 mg SDV IVP (09:01)
[2023-11-09] MEDS: midodrine 5 mg TABLET 10 MG PO ×3 (09:01→20:10)
[2023-11-09] MEDS: linezolid premix 600 MG/300 ML PREMIX 300 MG IV ×2 (09:08→20:10)
--- NOTE | 2023-11-09 09:39 | PC.NURSE ---
Dr. pizarro at bedside this AM plan to do parcentesis, dialysis today and attempt to come off sedation to attempt extubation if possible. at this time patient does not respond to stimuli
--- NOTE | 2023-11-09 09:43 | PC.NURSE ---
attempted to contact for paracentesis consent, message left
--- NOTE | 2023-11-09 12:00 | US_ITS ---
WS: [id number] ULTRASOUND-GUIDED PARACENTESIS CLINICAL INFORMATION: therapeutic. Procedure Informed consent: The risks, benefits, and alternatives of the procedure were discussed with the riya ent. Verbal and written consent was obtained. Timeout: A timeout was performed to confirm the correct patient, procedure, and site. Preparation: A suitable skin site was identified. The patient was prepped and draped in usual sterile fashion. Lidocaine 1% was used for local anesthesia. Catheter: 4 [place] One-step Yueh catheter. Side: RIGHT Lower quadrant. Fluid Volume: 5200 ml Color: Blood-tinged and clear yellow DISPOSITION: Discarded safely. Complications: None. IMPRESSION: Uncomplicated ultrasound-guided paracentesis. Removal of 5200 cc
[2023-11-09] MEDS: fentaNYL 1,000 MCG/100 ML BAG 10 MCG IV (12:10)
--- NOTE | 2023-11-09 12:15 | PC.NUTR ---
Addendum entered and electronically signed by Rachel Gracia 11/09/23 12:21: Nepro 1.8 @ goal rate of 40mls/hr provides 700mls fluid. Original Note: Consult for TF received. Recommend Nepro 1.8 beginning at 20mls/hr increasing 10mls Q8H as tolerated to goal rate of 40 mls/hr with FWF per MD discretion or 80mls Q6H. Details in RD assessment.
--- NOTE | 2023-11-09 12:30 | PC.NURSE ---
520ml removed from peritoneal after catherter placement By radiology cath removed Vital signs stable throughout
[2023-11-09] MEDS: heparin, porcine 1,000 unit/mL INJ 10 mL 1000 UNIT IV (12:35)
[2023-11-09 13:04] LABS: Methicillin-Resist S.aureu PCR NOT DETECTED (NOT DETECTED)
--- NOTE | 2023-11-09 14:41 | P.PN_ITS ---
Subjective 2 Subjective: Akil is sedated on the ventilator. No events overnight. Medications: Reviewed: Yes Vitals/I&O/Wt Last Vital Signs Temp 97.5 F L 11/09/23 12:43 Pulse 75 11/09/23 13:00 Resp 18 11/09/23 13:00 BP 114/68 11/09/23 13:00 Pulse Ox 97 11/09/23 13:00 O2 Del Method Mechanical Ventilation 11/09/23 06:00 O2 Flow Rate 40 11/08/23 10:30 FiO2 40 11/09/23 13:00 11/08/23 11/09/23 11/09/23 22:59 06:59 14:59 Intake Total 694.370 / 1606.289 540.387 / 2146.676 554.494 / 554.494 Output Total 0 / 0 5200 / 5200 Balance 694.370 / 1606.289 540.387 / 2146.676 -4645.506 / -4645.506 Weight last 48 hrs Weight 124.738 kg Weight 124.738 kg Weight 124.874 kg Weight 123.2 kg Physical Exam 2 Narrative: General exam is a sedated male, on ventilator HEENT: Atraumatic and normocephalic. Oropharynx with endotracheal tube. Oropharyngeal tube noted Neck is supple no lymphadenopathy thyromegaly Cardiovascular regular rate and rhythm with a 3/6 systolic murmur Lungs diminished breath sounds bilaterally. No wheezes Abdomen positive bowel sounds. Ascites noted. Some distention from the ascites. Extremities right lower extremity with multiple chronic ulcerations, none appear acutely infected. Pulses difficult to feel. Refill less than 2 seconds. Left with below the knee amputation. Urinary Catheter Management: Melgar: Cath Placed During This Visit: yes, but has since been removed by the nurse Reason for Continuing Indwelling Catheter: Decision to DC Catheter Urinary Catheter Date of Insertion: 11/05/23 Urinary Catheter Time of Insertion: 07:48 Date Urinary Catheter Removed: 11/06/23 Time Urinary Catheter Discontinued: 12:22 Data 11/09/23 04:12 11/09/23 04:12 Micro: Microbiology 11/05/23 Unknown Gram Stain - Final Peritoneal Fluid Anaerobic Culture - Preliminary Body Fluid Culture - Final A&P Assessment and plan (1) Chest pain: Original complaint of the patient was chest discomfort Troponin is elevated but trend is not concerning Must still be concerned about coronary disease with recent stenting, October 16 with drug-eluting stent as well as angioplasty. See report for details. Initially treated with heparin drip. Echocardiogram, limited, demonstrates EF around 50%. This is slightly improved from previous Cardiology consult appreciated Continue Plavix Continue aspirin Continue statin Angiogram performed 11/07, patient recieved 2 angioplasties. It was not thought that these lesions were likely to cause his VFIb arrest but could have contributed to chest pain. Qualifiers: Chest pain type: unspecified Qualified Code(s): R07.9 - Chest pain, unspecified (2) Acute respiratory failure: Postcode Patient with acute respiratory f 40% and now a PEEP of 8 Wean ventilator as tolerated FiO2 now 40% Lower lobe consolidation consistent with pneumonia seen on CT. Continue IV antibiotics. Paracentesis today to take off 5 L to try to make extubation chances ideal Dialysis today for removal of fluid for same reason as above. (3) Cardiac arrest: Status post V-fib cardiac arrest ROSC achieved Changed to amiodarone p.o. Rhythm currently sinus. Continue higher dose amiodarone to 400 twice daily for 1 week total from initiation. Sunday of next week should go down to 200mg BID (4) Ventricular fibrillation: Potassium has been corrected Nephrology consult appreciated Underwent ultrafiltration on November 04 and dialysis November 05 and November 06 (5) Atrial fibrillation: Placed on amiodarone, continue 400 mg twice daily as above I have discontinued Cardizem that was initiated in the emergency department. Currently in sinus rhythm Anticoagulated with heparin Qualifiers: Atrial fibrillation type: unspecified Qualified Code(s): I48.91 - Unspecified atrial fibrillation (6) Hypotension: Patient with severe hypotension This most likely is secondary to cardiac arrest as well as sepsis Currently on norepinephrine which has been weaned to 2. Continue patient's midodrine. Greatly improved Qualifiers: Hypotension type: idiopathic hypotension Qualified Code(s): I95.0 - Idiopathic hypotension (7) Sepsis: See findings under hypotension IV antibiotics consisting of linezolid, Zosyn Blood cultures negative to date Fluid from paracentesis obtained. Culture negative to date CT chest abdomen pelvis done yesterday demonstrates bilateral lower lobe pneumonia. Sputum culture shows [place], sensitive to Zosyn. Awaiting MRSA PCR Was not candidate for any fluid bolus on admission secondary to fluid overload. X-ray right lower extremity demonstrated no obvious bone destruction CT chest and abdomen today showed pneumonia but no other sites of infection. (8) Type 2 diabetes mellitus: It does not appear like he is on any insulin Monitor blood sugars No sliding scale for now as concern of potential for hypoglycemia Qualifiers: Diabetes mellitus clinical research nurse coordinator insulin use: without clinical research nurse coordinator use Diabetes mellitus complication status: with kidney complications Diabetes mellitus complication detail: with chronic kidney disease Chronic kidney disease stage: on chronic dialysis Qualified Code(s): E11.22 - Type 2 diabetes mellitus with diabetic chronic kidney disease; N18.6 - End stage renal disease; Z99.2 - Dependence on renal dialysis (9) Abnormal TSH: TSH abnormal, elevated. Continue on Synthroid low-dose, 25 mcg secondary to arrhythmia Plan End-stage renal disease on hemodialysis with hyperkalemia. . Nephrology consult appreciated. He was ultrafiltrated on November 04. Dialysis was performed November 05 and November 06. Will get again today Multiple other medical problems as outlined in past medical history Full code Heparin will suffice for DVT prophylaxis Does not produce significant urine chronically. Melgar was discontinued Probable extubation tomorrow. Low dose feeds initiated. Attestations 2 Medical Necessity Statement*: Needs continue ICU stay secondary to pneumonia with resp failure s/p VFib arrest from hyperkalemia. Critical Care Time: The high probability of a clinically significant, sudden or life threatening deterioration of the patient's [cardiac , pulmonary, infectiius, renal] s ystem(s) required my full and direct attention, intervention and personal management. The critical care time is as shown. This time is in addition to time spent performing any reported procedures but includes the following: [x] Data and vital sign review and interpretation [x] Patient assessment, examination and intervention [x] Documentation [x] Medication orders and management Critical Care Time (min): 34 Coding Level of Care Code Critical Care >/= 30 minutes Critical care time (in minutes): 34 The high probability of a clinically significant, sudden or life threatening deterioration, as referenced in this documentation, required my full and direct attention, intervention and personal management. The critical care time shown is in addition to time spent performing any reported separately billable procedures and includes the following: [x] Data and vital sign review and interpretation [x ] Patient assessment, examination and intervention [x] Medication orders and management [x] Patient/Family updates as able [x] Care Coordination and Documentation. Diagnoses Chest pain R07.9 Chest pain type: unspecified Acute respiratory failure J96.00 Cardiac arrest I46.9 Ventricular fibrillation I49.01 Atrial fibrillation, unspecified type I48.91 Atrial fibrillation type: unspecified Idiopathic hypotension I95.0 Hypotension type: idiopathic hypotension Sepsis A41.9 Type 2 diabetes mellitus with chronic kidney disease on chronic dialysis, without long-term current use of insulin E11.22; N18.6; Z99.2 Diabetes mellitus clinical research nurse coordinator insulin use: without prison use Diabetes mellitus complication status: with kidney complications Diabetes mellitus complication detail: with chronic kidney disease Chronic kidney disease stage: on chronic dialysis Abnormal TSH R79.89
[2023-11-09] MEDS: heparin 5,000 unit/mL INJ 1 mL 5000 UNIT SUBCUT (16:07)
--- NOTE | 2023-11-09 16:23 | PC.NURSE ---
patient answering to name with nods yes and no patient asked if he was in pain he nodded yes fenrlyl gtt started back at 25 mcg/hr for comfort while intubated at bedside
--- NOTE | 2023-11-09 19:00 | PC.NURSE ---
Fentanyl drip infusing at 25mcg/kg/min when assuming care of patient at 1900, adjusted charting to reflect this on sep.
[2023-11-10] VITALS (59 sets, daily range): BP systolic 74–167; BP diastolic 36–98; PULSE 60–77; RESP 13–23; TEMP 35.7–37.2; O2SAT 86–100
[2023-11-10] MEDS: propofol 1,000 MG/100 ML INJ 13.6099999999999994 MG IV (00:54)
[2023-11-10] MEDS: chlorhexidine gluconate 4% Btl 118 mL 1 APPLIC TOPICAL ×2 (00:56→23:17)
[2023-11-10] MEDS: piperacillin-tazobactam 3.375 GM in sodium chloride 0.9% (plus) 50 ML IV ×3 (01:05→16:46)
--- NOTE | 2023-11-10 01:11 | PC.NURSE ---
2300 increased anxiety noted and facial grimacing, when asked if he is in pain he nods yes. Fentanyl increased to 75 mcg/hr. Continuing to monitor pain and anxiety. Will adjust meds as needed.
[2023-11-10] MEDS: fentaNYL 1,000 MCG/100 ML BAG 7.5 MCG IV ×2 (01:59→19:38)
[2023-11-10] MEDS: heparin 5,000 unit/mL INJ 1 mL 5000 UNIT SUBCUT ×2 (03:57→15:05)
[2023-11-10 04:31] LABS: Basophils # 0.1 10^3/uL (0.0-0.1); Basophils % 0.7 %; Eosinophils # 0.7 10^3/uL (0.0-0.8); Eosinophils % 7.6 %; Hematocrit 36.4 % (37-53); Lymphocytes # 0.6 10^3/uL (0.8-4.8); Mean Corpuscular HGB Conc 30.8 g/dL (30-55); Mean Corpuscular Hemoglobin 27.5 pg (27-33); Mean Corpuscular Volume 89.4 fl (82-101); Mean Platelet Volume 11.7 fL (7.4-10.4); Monocytes # 0.7 10^3/uL (0.2-0.9); Monocytes % 8.2 %; Neutrophils # 6.47 10^3/uL (1.8-7.7); Neutrophils % 74.2 %; Nucleated Red Blood Cells % 0 %; Platelet Count 92 10^3/cmm (157-399); Red Blood Count 4.07 10^6/uL (3.85-5.65); Red Cell Distribution Width 17.2 % (12.1-15.1); White Blood Count 8.71 10^3/uL (3.29-11.43)
[2023-11-10 04:40] LABS: Alanine Aminotransferase 9 U/L (0-41); Albumin Level 2.5 g/dL (3.5-5.2); Alkaline Phosphatase 91 U/L (40-130); Anion Gap 18.3 (5-19); Aspartate Amino Transferase 16 U/L (0-40); Blood Urea Nitrogen 33 mg/dL (6-20); Carbon Dioxide 26 mmol/L (22-29); Chloride 93 mmol/L (98-107); Creatinine Clr Calc Pharmacy 21.4233; Globulin 4.6 g/dL (1.3-4.6); Glomerular Filtration Rate 11.2 mL/min (90-130); Glucose 89 mg/dL (65-115); Magnesium 1.9 mg/dL (1.7-2.3); Osmolality Calculated 283 mOsm/kg (285-295); Potassium 4.3 mmol/L (3.5-5.1); Sodium 133 mmol/L (136-145); Total Bilirubin 0.5 mg/dL (0.15-1.2); Total Protein 7.1 g/dL (6.6-8.7)
[2023-11-10] MEDS: venlafaxine ER (24HR) 75 mg Capsule PO (05:49)
[2023-11-10] MEDS: levothyroxine 25 mcg Tablet PO (05:49)
--- NOTE | 2023-11-10 07:58 | PM.PN ---
Subjective Subjective: Patient's condition is overall unchanged. Plan for possible extubation today. Vitals/I&O/Wt Last Vital Signs Temp 96.9 F L 11/10/23 04:00 Pulse 70 11/10/23 06:00 Resp 18 11/10/23 07:39 BP 104/60 11/10/23 06:00 Pulse Ox 94 11/10/23 07:39 O2 Del Method Mechanical Ventilation 11/10/23 06:00 O2 Flow Rate 40 11/08/23 10:30 FiO2 40 11/10/23 07:39 11/09/23 11/10/23 11/10/23 22:59 06:59 14:59 Intake Total 753.381 / 1321.208 639.860 / 1961.068 Output Total 2800 / 8000 Balance -2046.619 / -6678.792 639.860 / -6038.932 Weight last 48 hrs Weight 257 lb 6.4 oz Weight 263 lb 7.238 oz Weight 275 lb Weight 275 lb Physical Exam Narrative: GENERAL: Patient is intubated and sedated. NECK: No jugular vein distension. [] HEENT: No cyanosis. No icterus. No pallor. [] HEART: Regular S1 and S2.Has grade 3/6 systolic murmur LUNGS: Clear to auscultate bilaterally. [] CENTRAL NERVOUS SYSTEM: Grossly nonfocal. [] EXTREMITIES: Left BKA. Urinary Catheter Management: Melgar: Cath Placed During This Visit: yes, but has since been removed by the nurse Reason for Continuing Indwelling Catheter: Decision to DC Catheter Urinary Catheter Date of Insertion: 11/05/23 Urinary Catheter Time of Insertion: 07:48 Date Urinary Catheter Removed: 11/06/23 Time Urinary Catheter Discontinued: 12:22 Data 11/11/23 03:30 11/11/23 04:48 Micro: Microbiology 11/05/23 05:40 Blood Culture - Final Blood NO GROWTH AFTER 5 DAYS 11/05/23 05:35 Blood Culture - Final Blood NO GROWTH AFTER 5 DAYS 11/05/23 Unknown Gram Stain - Final Peritoneal Fluid Anaerobic Culture - Preliminary Body Fluid Culture - Final A&P Assessment and plan (1) Ventricular fibrillation: (2) Atherosclerotic heart disease of [place] coronary artery with other forms of angina pectoris: (3) Type 2 diabetes mellitus: Qualifiers: Diabetes mellitus offset plate maker insulin use: without offset plate maker use Diabetes mellitus complication status: with kidney complications Diabetes mellitus complication detail: with chronic kidney disease Chronic kidney disease stage: on chronic dialysis Qualified Code(s): E11.22 - Type 2 diabetes mellitus with diabetic chronic kidney disease; N18.6 - End stage renal disease; Z99.2 - Dependence on renal dialysis (4) End-stage renal disease on hemodialysis: (5) Anemia: Qualifiers: Anemia type: iron deficiency Iron deficiency anemia type: other iron deficiency Qualified Code(s): D50.8 - Other iron deficiency anemias (6) Acute and chronic respiratory failure with hypoxia: (7) Atrial fibrillation: Qualifiers: Atrial fibrillation type: unspecified Qualified Code(s): I48.91 - Unspecified atrial fibrillation (8) Ascites: Qualifiers: Ascites type: other type Qualified Code(s): R18.8 - Other ascites (9) Hypotension: Qualifiers: Hypotension type: idiopathic hypotension Qualified Code(s): I95.0 - Idiopathic hypotension (10) Aortic stenosis: Plan Patient had balloon angioplasty of severe ISR proximal to mid LAD stent. He is stable for cardiac stanpoint. Continue aspirin and Plavix. Plan for possible extubation today. Thank you for involving us with care of this patient. We will continue to follow. Please call with questions. Attestations Medical Necessity Statement*: Care expected to cross 2 midnights. Coding Level of Care Code Acute Code for [facility] Diagnoses Ventricular fibrillation I49.01 Atherosclerotic heart disease of [place] coronary artery with other forms of angina pectoris I25.118 Type 2 diabetes mellitus with chronic kidney disease on chronic dialysis, without long-term current use of insulin E11.22; N18.6; Z99.2 Diabetes mellitus intermediate insulin use: without offset plate maker use Diabetes mellitus complication status: with kidney complications Diabetes mellitus complication detail: with chronic kidney disease Chronic kidney disease stage: on chronic dialysis End-stage renal disease on hemodialysis N18.6; Z99.2 Other iron deficiency anemia D50.8 Anemia type: iron deficiency Iron deficiency anemia type: other iron deficiency Acute and chronic respiratory failure with hypoxia J96.21 Atrial fibrillation, unspecified type I48.91 Atrial fibrillation type: unspecified Other ascites R18.8 Ascites type: other type Idiopathic hypotension I95.0 Hypotension type: idiopathic hypotension Aortic stenosis I35.0
[2023-11-10] MEDS: aspirin 81 mg EC Tablet PO (08:27)
[2023-11-10] MEDS: amiodarone 200 mg Tablet 400 MG PO ×2 (08:27→17:14)
[2023-11-10] MEDS: linezolid premix 600 MG/300 ML PREMIX 300 MG IV ×2 (08:27→21:25)
[2023-11-10] MEDS: clopidogrel 75 mg Tablet PO (08:28)
[2023-11-10] MEDS: pantoprazole 40 mg SDV IVP (08:28)
[2023-11-10] MEDS: midodrine 5 mg TABLET 10 MG PO ×3 (08:28→21:19)
[2023-11-10] MEDS: atorvastatin 40 mg Tablet 80 MG PO (08:28)
[2023-11-10 09:04] LABS: Free T4 Free Thyroxine 0.74 ng/dL (0.82-1.77); T3 Free 1.1 PG/ML (2.0-4.4)
--- NOTE | 2023-11-10 09:41 | P.PN_ITS ---
Subjective 2 Subjective: on vent Medications: Reviewed: Yes Vitals/I&O/Wt Last Vital Signs Temp 96.9 F L 11/10/23 04:00 Pulse 70 11/10/23 06:00 Resp 19 H 11/10/23 09:12 BP 104/60 11/10/23 06:00 Pulse Ox 94 11/10/23 09:12 O2 Del Method Mechanical Ventilation 11/10/23 06:00 O2 Flow Rate 40 11/08/23 10:30 FiO2 40 11/10/23 09:12 11/09/23 11/10/23 11/10/23 22:59 06:59 14:59 Intake Total 753.381 / 1321.208 639.860 / 1961.068 Output Total 2800 / 8000 Balance -2046.619 / -6678.792 639.860 / -6038.932 Weight last 48 hrs Weight 116.755 kg Weight 119.5 kg Weight 124.738 kg Weight 124.738 kg Physical Exam 2 Narrative: intubated , sedated Urinary Catheter Management: Melgar: Cath Placed During This Visit: yes, but has since been removed by the nurse Reason for Continuing Indwelling Catheter: Decision to DC Catheter Urinary Catheter Date of Insertion: 11/05/23 Urinary Catheter Time of Insertion: 07:48 Date Urinary Catheter Removed: 11/06/23 Time Urinary Catheter Discontinued: 12:22 Data 11/10/23 04:07 11/10/23 04:07 Micro: Microbiology 11/05/23 05:40 Blood Culture - Final Blood NO GROWTH AFTER 5 DAYS 11/05/23 05:35 Blood Culture - Final Blood NO GROWTH AFTER 5 DAYS 11/05/23 Unknown Gram Stain - Final Peritoneal Fluid Anaerobic Culture - Preliminary Body Fluid Culture - Final A&P Assessment and plan (1) End-stage renal disease on hemodialysis: 1. End-stage renal disease: On TTS schedule as outpatient, was hyperkalemic and status post cardiac arrest. -plan for HD today -Assess daily for HD needs 2. Status post V-fib, ROSC achieved currently on amiodarone and on pressors 3. Chest pain, workup in process, s/p LHC 4. Acute on chronic respiratory failure, currently intubated 5. Hyperkalemia: improved 6. sepsis 7. Anemia: Hemoglobin 11.2 , monitor, ALBERTO with HD. Patient evaluated using audiovisual cart. Time spent 20 minutes Attestations 2 Medical Necessity Statement*: per [facility] Coding Level of Care Code Acute Code for [facility] Diagnoses End-stage renal disease on hemodialysis N18.6; Z99.2
[2023-11-10] MEDS: dexmedeTOMIDine 0.9 % NaCL 400 MCG/100 ML PREMIX 11.6799999999999997 MCG IV (11:43)
[2023-11-10] MEDS: heparin, porcine 1,000 unit/mL INJ 10 mL 1000 UNIT IV (12:13)
--- NOTE | 2023-11-10 15:17 | PM.PN ---
Subjective Subjective: - Patient was examined this morning, he remains off pressors, remains afebrile, normotensive, on 40% FiO2, intubated, off sedation ? Off sedation he is able to follow commands able to squeeze my fingers, you will to close his eyes, ? Continues to have generalized fluid overload, 1+ pitting edema, anasarca ? Spoke to nephrology, Corona Matthews, patient is fluid over this morning, discussed dialysis this morning, ? Spoke to respiratory therapy, spoke to nursing staff, plan on continuing holding off on sedation, spontaneous breathing trial, will consider extubation this morning ? Patient continues to have elevated minute ventilation, currently receiving dialysis, will monitor there after dialysis, possible extubation this afternoon based on clinical progress ? Spoke to patient's sister at bedside, -Review Dr. Vela's notes, reviewed specialist notes, Vitals/I&O/Wt Last Vital Signs Temp 97.0 F L 11/10/23 12:36 Pulse 73 11/10/23 14:30 Resp 13 11/10/23 14:10 BP 152/94 11/10/23 14:30 Pulse Ox 98 11/10/23 14:30 O2 Del Method Mechanical Ventilation 11/10/23 06:00 O2 Flow Rate 40 11/08/23 10:30 FiO2 40 11/10/23 14:10 11/10/23 11/10/23 11/10/23 06:59 14:59 22:59 Intake Total 639.860 / 1961.068 Balance 639.860 / -6038.932 Weight last 48 hrs Weight 116.755 kg Weight 119.5 kg Weight 124.738 kg Weight 124.738 kg Physical Exam Const: COMMON NORMALS: no acute distress OTHER: Intubated, off sedation can follow commands Resp: COMMON NORMALS: normal respiratory effort, No retractions, No use of accessory muscles and clear to auscultation bilaterally AUSCULTATION: clear to auscultation bilaterally Cardio: COMMON NORMALS: regular rate, regular rhythm, S1 normal heart sound present and S2 normal heart sound present RATE: regular rate RHYTHM: regular rhythm HEART SOUNDS: S1 normal heart sound present and S2 normal heart sound present GI: COMMON NORMALS: Normal to inspection, nondistended, normoactive bowel sounds present, Soft to palpation and non-tender PALPATION: Yes Soft to palpation Extremity: NARRATIVE EXTREMITY EXAM: 1+ pitting edema, generalized anasarca Urinary Catheter Management: Melgar: Cath Placed During This Visit: yes, but has since been removed by the nurse Reason for Continuing Indwelling Catheter: Decision to DC Catheter Urinary Catheter Date of Insertion: 11/05/23 Urinary Catheter Time of Insertion: 07:48 Date Urinary Catheter Removed: 11/06/23 Time Urinary Catheter Discontinued: 12:22 Data 11/10/23 04:07 11/10/23 04:07 Micro: Microbiology 11/05/23 05:40 Blood Culture - Final Blood NO GROWTH AFTER 5 DAYS 11/05/23 05:35 Blood Culture - Final Blood NO GROWTH AFTER 5 DAYS 11/05/23 Unknown Gram Stain - Final Peritoneal Fluid Anaerobic Culture - Preliminary Body Fluid Culture - Final A&P Assessment and plan (1) Chest pain: Original complaint of the patient was chest discomfort Troponin is elevated but trend is not concerning Must still be concerned about coronary disease with recent stenting, October 16 with drug-eluting stent as well as angioplasty. See report for details. Initially treated with heparin drip. Now stopped Echocardiogram, limited, demonstrates EF around 50%. This is slightly improved from previous Angiogram performed 11/07, patient recieved 2 angioplasties. It was not thought that these lesions were likely to cause his VFIb arrest but could have contributed to chest pain. Cardiology consult appreciated Continue Plavix Continue aspirin Continue statin Qualifiers: Chest pain type: unspecified Qualified Code(s): R07.9 - Chest pain, unspecified (2) Acute respiratory failure: Postcode Patient with acute respiratory 40% and now a PEEP of 8 Wean ventilator as tolerated FiO2 now 40% Lower lobe consolidation consistent with pneumonia seen on CT Continue IV antibiotics. Currently on Zosyn, Zyvox Paracentesis 5 L off Received dialysis yesterday 2 L off ? Dialysis today further fluid removal optimize for extubation, ? Continue spontaneous breathing trial ? Will likely need to extubate to BiPAP (3) Cardiac arrest: Status post V-fib cardiac arrest ROSC achieved Changed to amiodarone p.o. Rhythm currently sinus. Continue higher dose amiodarone to 400 twice daily for 1 week total from initiation. Sunday of next week should go down to 200mg BID (4) Ventricular fibrillation: Potassium has been corrected Nephrology consult appreciated Underwent ultrafiltration on November 04 and dialysis November 05 and November 06 (5) Atrial fibrillation: Placed on amiodarone, continue 400 mg twice daily as above I have discontinued Cardizem that was initiated in the emergency department. Currently in sinus rhythm Currently off full dose anticoagulation Qualifiers: Atrial fibrillation type: unspecified Qualified Code(s): I48.91 - Unspecified atrial fibrillation (6) Hypotension: Patient with severe hypotension This most likely is secondary to cardiac arrest as well as sepsis Currently on norepinephrine which has been weaned to 2. Continue patient's midodrine. Greatly improved Qualifiers: Hypotension type: idiopathic hypotension Qualified Code(s): I95.0 - Idiopathic hypotension (7) Sepsis: Resolved See findings under hypotension IV antibiotics consisting of linezolid, Zosyn Blood cultures negative to date Fluid from paracentesis obtained Culture negative to date CT chest abdomen pelvis done yesterday demonstrates bilateral lower lobe pneumonia. Sputum culture shows Cedecea, sensitive to Zosyn. Awaiting MRSA PCR Was not candidate for any fluid bolus on admission secondary to fluid overload. X-ray right lower extremity demonstrated no obvious bone destruction CT chest and abdomen today showed pneumonia but no other sites of infection. (8) Type 2 diabetes mellitus: It does not appear like he is on any insulin Monitor blood sugars No sliding scale for now as concern of potential for hypoglycemia Qualifiers: Diabetes mellitus terminal operator insulin use: without snf use Diabetes mellitus complication status: with kidney complications Diabetes mellitus complication detail: with chronic kidney disease Chronic kidney disease stage: on chronic dialysis Qualified Code(s): E11.22 - Type 2 diabetes mellitus with diabetic chronic kidney disease; N18.6 - End stage renal disease; Z99.2 - Dependence on renal dialysis (9) Abnormal TSH: TSH abnormal, elevated. Continue on Synthroid low-dose, 25 mcg secondary to arrhythmia Plan End-stage renal disease on hemodialysis with hyperkalemia. . Nephrology consult appreciated. He was ultrafiltrated on November 04. Dialysis was performed November 05 and November 06. Will get again today Multiple other medical problems as outlined in past medical history Full code Heparin will suffice for DVT prophylaxis Does not produce significant urine chronically. Melgar was discontinued Probable extubation tomorrow. Low dose feeds initiated. - Patient was examined this morning, he remains off pressors, remains afebrile, normotensive, on 40% FiO2, intubated, off sedation ? Off sedation he is able to follow commands able to squeeze my fingers, you will to close his eyes, ? Continues to have generalized fluid overload, 1+ pitting edema, anasarca ? Spoke to nephrology, Corona Matthews, patient is fluid over this morning, discussed dialysis this morning, ? Spoke to respiratory therapy, spoke to nursing staff, plan on continuing holding off on sedation, spontaneous breathing trial, will consider extubation this morning ? Patient continues to have elevated minute ventilation, currently receiving dialysis, will monitor there after dialysis, possible extubation this afternoon based on clinical progress ? Spoke to patient's sister at bedside, -Review Dr. Vela's notes, reviewed specialist notes, Reviewed blood work Attestations Medical Necessity Statement*: Patient requires hospitalization for pneumonia, shock, cardiac arrest, NSTEMI, chest pain, respiratory failure, Coding Level of Care Code Critical Care >/= 30 minutes Critical care time (in minutes): 60 The high probability of a clinically significant, sudden or life threatening deterioration, as referenced in this documentation, required my full and direct attention, intervention and personal management. The critical care time shown is in addition to time spent performing any reported separately billable procedures and includes the following: [x] Data and vital sign review and interpretation [x] Patient assessment, examination and intervention [x] Medication orders and management [x] Patient/Family updates as able [x] Care Coordination and Documentation. Diagnoses Chest pain R07.9 Chest pain type: unspecified Acute respiratory failure J96.00 Cardiac arrest I46.9 Ventricular fibrillation I49.01 Atrial fibrillation, unspecified type I48.91 Atrial fibrillation type: unspecified Idiopathic hypotension I95.0 Hypotension type: idiopathic hypotension Sepsis A41.9 Type 2 diabetes mellitus with chronic kidney disease on chronic dialysis, without long-term current use of insulin E11.22; N18.6; Z99.2 Diabetes mellitus terminal operator insulin use: without terminal operator use Diabetes mellitus complication status: with kidney complications Diabetes mellitus complication detail: with chronic kidney disease Chronic kidney disease stage: on chronic dialysis Abnormal TSH R79.89
[2023-11-10] MEDS: dexmedeTOMIDine 0.9 % NaCL 400 MCG/100 ML PREMIX 17.5100000000000016 MCG IV (16:05)
[2023-11-10] MEDS: heparin, porcine 1,000 unit/mL INJ 10 mL 10000 UNIT INTRACATH (16:05)
--- NOTE | 2023-11-10 16:36 | PC.NURSE ---
Shift Summary: Weaned sedation, dialysis tolerated well. RR drops to 8 and low minute volume, patient follows commands but lethargic at times. plan to keep pn minimal sedation wean at 0400 and retry extubation tomorrow 11/11/23
[2023-11-10] MEDS: propofol 1,000 MG/100 ML INJ 6.79999999999999982 MG IV (16:48)
[2023-11-10] MEDS: norepinephrine 4 MG/250 ML BAG 7.5 MG IV (23:53)
[2023-11-11] VITALS (104 sets, daily range): BP systolic 75–139; BP diastolic 36–85; PULSE 63–116; RESP 16–32; TEMP 36.6–37.2; O2SAT 86–100
[2023-11-11] MEDS: propofol 1,000 MG/100 ML INJ 17.0100000000000016 MG IV (00:14)
[2023-11-11] MEDS: piperacillin-tazobactam 3.375 GM in sodium chloride 0.9% (plus) 50 ML IV ×3 (01:27→17:33)
[2023-11-11 04:00] LABS: Basophils # 0.1 10^3/uL (0.0-0.1); Basophils % 0.8 %; Eosinophils # 0.7 10^3/uL (0.0-0.8); Eosinophils % 8.3 %; Lymphocytes # 0.5 10^3/uL (0.8-4.8); Lymphocytes % 6.3 %; Mean Corpuscular HGB Conc 29.2 g/dL (30-55); Mean Corpuscular Hemoglobin 26.8 pg (27-33); Mean Corpuscular Volume 91.8 fl (82-101); Mean Platelet Volume 12.2 fL (7.4-10.4); Monocytes # 0.7 10^3/uL (0.2-0.9); Monocytes % 8.3 %; Neutrophils # 6.36 10^3/uL (1.8-7.7); Neutrophils % 75.8 %; Nucleated Red Blood Cells % 0 %; Platelet Count 102 10^3/cmm (157-399); Red Blood Count 4.03 10^6/uL (3.85-5.65); Red Cell Distribution Width 17.1 % (12.1-15.1)
[2023-11-11] MEDS: heparin 5,000 unit/mL INJ 1 mL 5000 UNIT SUBCUT ×2 (04:07→17:37)
[2023-11-11 04:27] LABS: Procalcitonin 2.36 ng/mL (0-0.5)
[2023-11-11 04:49] LABS: NT Pro B Type Natriuretic Pept 69992 pg/mL (0-125)
[2023-11-11 04:50] LABS: Creatine Phosphokinase 86 U/L (39-308)
[2023-11-11] MEDS: propofol 1,000 MG/100 ML INJ 6.79999999999999982 MG IV (05:08)
[2023-11-11 05:16] LABS: INR 1.19 (0.8-1.2)
[2023-11-11 05:21] LABS: Alanine Aminotransferase 9 U/L (0-41); Albumin Level 2.8 g/dL (3.5-5.2); Alkaline Phosphatase 91 U/L (40-130); Aspartate Amino Transferase 15 U/L (0-40); Blood Urea Nitrogen 29 mg/dL (6-20); C Reactive Protein 91.1 mg/L (0.0-4.9); Calcium 8.4 mg/dL (8.5-10.5); Carbon Dioxide 25 mmol/L (22-29); Chloride 97 mmol/L (98-107); Creatinine Clr Calc Pharmacy 21.5747; Globulin 4.9 g/dL (1.3-4.6); Glomerular Filtration Rate 11.7 mL/min (90-130); Glucose 93 mg/dL (65-115); Osmolality Calculated 296 mOsm/kg (285-295); Phosphorus 6.4 mg/dL (2.5-4.5); Sodium 140 mmol/L (136-145); Total Bilirubin 0.5 mg/dL (0.15-1.2); Total Protein 7.7 g/dL (6.6-8.7)
[2023-11-11 05:23] LABS: Anion Gap 22.3 (5-19); Potassium 4.3 mmol/L (3.5-5.1)
[2023-11-11 05:31] LABS: ABG PCO2 45.6 mmHg (35-45); ABG PH Result 7.39 (7.35-7.45); Arterial Blood Gas Hematocrit 34.8 % (42-52); Base Excess ABG 2.4 mmol/L (-2.0-2.0); Blood Gas Allen Test Pos; Blood Gas Operator Identificat JB; Blood Gas Sample Site Radial, right; Blood Gas Sample Type Arterial; Blood Gas Tidal Volume 0.45; HCO3 ABG 27.8 mmol/L (22-26); Oxygen Device VENT; PO2 ABG 60.8 mmHg (80.0-100.0); PO2 FiO2 Ratio Arterial Blood 0
[2023-11-11 05:37] LABS: Lactate (Lactic Acid level) 1.7 mmol/L (0.5-2.2)
[2023-11-11] MEDS: levothyroxine 25 mcg Tablet PO (05:54)
[2023-11-11] MEDS: venlafaxine ER (24HR) 75 mg Capsule PO (05:57)
[2023-11-11] MEDS: fentaNYL 1,000 MCG/100 ML BAG 7.5 MCG IV (06:04)
[2023-11-11] MEDS: dexmedeTOMIDine 0.9 % NaCL 400 MCG/100 ML PREMIX 11.6799999999999997 MCG IV (06:49)
--- NOTE | 2023-11-11 07:00 | XRR_ITS ---
PROCEDURE INFORMATION: Exam: XR Chest Exam date and time: 11/11/2023 7:31 AM Age: 53 years old Clinical indication: Shortness of breath; Patient HX: Respiratory distress, renal cell carcinoma, SOB TECHNIQUE: Imaging protocol: Radiologic exam of the chest. Views: 1 view. COMPARISON: CR XR chest 1V portable [id number] 11/08/2023 6:28 AM FINDINGS: Tubes, catheters and devices: High position of endotracheal tube with distal tip above the level of the clavicles. Feeding tube is in satisfactory position. Right sided PICC is in satisfactory position, with distal tip in the RA. Lungs: Low lung volumes. There are increased lung markings and haziness of the lungs in association with small bilateral pleural effusions, which in the setting of cardiomegaly is consistent with pulmonary edema. Pneumonia should be excluded clinically. No pneumothorax. Pleural spaces: See Lungs finding. Heart/Mediastinum: Stable cardiomediastinal silhouette. Bones/joints: Unremarkable. XR/XR chest 1V portable [id number] IMPRESSION: 1. High position of endotracheal tube with distal tip of the level of the clavicles, advancement of 3-4 cm recommended. 2. Imaging findings of pulmonary edema with small bilateral pleural effusions. Pneumonia should be excluded clinically.
[2023-11-11] MEDS: pantoprazole 40 mg SDV IVP (08:38)
[2023-11-11] MEDS: midodrine 5 mg TABLET 10 MG PO (08:38)
[2023-11-11] MEDS: atorvastatin 40 mg Tablet 80 MG PO (08:38)
[2023-11-11] MEDS: aspirin 81 mg EC Tablet PO (08:39)
[2023-11-11] MEDS: amiodarone 200 mg Tablet 400 MG PO (08:39)
[2023-11-11] MEDS: linezolid premix 600 MG/300 ML PREMIX 300 MG IV ×2 (08:39→21:02)
[2023-11-11] MEDS: clopidogrel 75 mg Tablet PO (08:39)
--- NOTE | 2023-11-11 09:03 | XRR_ITS ---
PROCEDURE INFORMATION: Exam: XR Chest Exam date and time: 11/11/2023 9:16 AM Age: 53 years old Clinical indication: Device placement; Ett placement (vent status); Additional info: Endotrach tube repostioning TECHNIQUE: Imaging protocol: Radiologic exam of the chest. Views: 1 view. COMPARISON: CR (CHEST, ) 11/11/2023 7:31 AM FINDINGS: Tubes, catheters and devices: High position of endotracheal tube with distal tip about the upper aspect of the clavicles. Feeding tube is in satisfactory position. Right sided PICC is in satisfactory position, with distal tip in the RA. Lungs: There are increased lung markings and haziness of the lungs in association with small right pleural effusion, which in the setting of cardiomegaly is consistent with pulmonary edema. The left costophrenic angle is excluded. Pneumonia should be excluded clinically. No pneumothorax. Pleural spaces: See Lungs finding. Heart/Mediastinum: Stable cardiomediastinal silhouette. Bones/joints: Unremarkable. XR/XR chest 1V portable [id number] IMPRESSION: 1. High position of endotracheal tube with distal tip about the upper aspect of the clavicles. Advancement of 2-3 cm recommended. 2. Imaging findings of pulmonary edema with small right pleural effusion.
[2023-11-11] MEDS: albumin 25 G/100 ML BAG 60 G IV (10:21)
--- NOTE | 2023-11-11 10:32 | P.PN_ITS ---
Subjective 2 Subjective: on vent Medications: Reviewed: Yes Vitals/I&O/Wt Last Vital Signs Temp 98.8 F 11/11/23 08:15 Pulse 74 11/11/23 08:15 Resp 21 H 11/11/23 09:10 BP 120/71 11/11/23 08:15 Pulse Ox 95 11/11/23 09:10 O2 Del Method Mechanical Ventilation 11/11/23 08:15 O2 Flow Rate 40 11/08/23 10:30 FiO2 40 11/11/23 09:10 11/10/23 11/11/23 11/11/23 22:59 06:59 14:59 Intake Total 1239.675 / 1289.675 610.773 / 1900.448 338.231 / 338.231 Output Total 2800 / 2800 Balance -1560.325 / -1510.325 610.773 / -899.552 338.231 / 338.231 Weight last 48 hrs Weight 112.264 kg Weight 116.5 kg Weight 116.755 kg Weight 119.5 kg Physical Exam 2 Narrative: intubated , sedated Urinary Catheter Management: Melgar: Cath Placed During This Visit: yes, but has since been removed by the nurse Reason for Continuing Indwelling Catheter: Decision to DC Catheter Urinary Catheter Date of Insertion: 11/05/23 Urinary Catheter Time of Insertion: 07:48 Date Urinary Catheter Removed: 11/06/23 Time Urinary Catheter Discontinued: 12:22 Data 11/11/23 03:30 11/11/23 04:48 Micro: Microbiology 11/05/23 Unknown Gram Stain - Final Peritoneal Fluid Anaerobic Culture - Preliminary Body Fluid Culture - Final 11/05/23 05:40 Blood Culture - Final Blood NO GROWTH AFTER 5 DAYS 11/05/23 05:35 Blood Culture - Final Blood NO GROWTH AFTER 5 DAYS A&P Assessment and plan (1) End-stage renal disease on hemodialysis: 1. End-stage renal disease: On TTS schedule as outpatient, was hyperkalemic and status post cardiac arrest. -s/p HD yesterday -Assess daily for HD needs 2. Status post V-fib, ROSC achieved currently on amiodarone and on pressors 3. Chest pain, workup in process, s/p LHC 4. Acute on chronic respiratory failure, currently intubated, plan for extubation today 5. Hyperkalemia: improved 6. sepsis 7. Anemia: Hemoglobin 11.2 , monitor, ALBERTO with HD. Patient evaluated using audiovisual cart. Time spent 20 minutes Attestations 2 Medical Necessity Statement*: per mark Coding Level of Care Code Acute Code for Chg Fwd Diagnoses End-stage renal disease on hemodialysis N18.6; Z99.2
--- NOTE | 2023-11-11 10:55 | PC.NURSE ---
pt extubated to bipap at [address] Bal present at bedside. Pt is on 45% o2 on bipap. Pt tolerated well. Oxygen is 95%.
--- NOTE | 2023-11-11 16:04 | PM.PN ---
Subjective Subjective: - Patient was examined several times throughout the morning Early in the morning, patient was seen, currently on 45% BiPAP, he is on 2 of Levophed, on 50 of fentanyl, on Precedex, he follows all commands, is able to nod for me, able to about the day to be that he is doing okay able to squeeze both my fingers able to wiggle his toes, his edema has improved, he had dialysis yesterday with 2 L out ? Patient's daughter is at bedside, we discussed performing spontaneous breathing trial this morning, wean his oxygen, and plan on extubating later on this morning ? I had a detailed discussion with daughter at bedside that we will plan on extubating him later on this morning, he has a risk of reintubation, morbidity mortality associate with reintubation, and if he does get reintubated, he does have a high risk of morbidity on prolonged mechanical ventilation potentially requiring tracheostomy, DEXA? ed he is tolerated dialysis yesterday he is still a bit hypotensive, requiring minimal Levophed I think it is likely secondary to dialysis that he received yesterday's lactic acid within normal limits, he is afebrile, will give 1 dose albumin, continue midodrine ? Spoke to nursing staff, continue to monitor respiratory status closely spoke to speech therapy monitor respiratory status closely, plan for extubation patient ? Patient was reexamined, he has good minute ventilation, no tachypnea, following all commands no tachycardia, no recurrent hypotensive episodes, doing well on spontaneous breathing trial, ? Patient's daughter and patient's sister at bedside, discussed plan on extubating, risk benefits discussed, they voiced understanding, all questions answered, discussed risk of reintubation, morbidity mortality associated, risk of morbidity mortality associated if he does get reintubated, they voiced understanding, all questions answered, discussed plan on extubating him and onto BiPAP ? Patient's daughter confirms that patient uses BiPAP at home, he used to be compliant with it now is not compliant with IT -Patient was extubated, he had significant mucus and mucoid secretions, after extubation, requiring suctioning, does have a cough although week, next ?plan was to extubate him to BiPAP ? Patient was placed on BiPAP monitored on BiPAP, overall doing well no evidence of tachypnea no tachycardia, no evidence of respiratory distress, he is able to follow commands, able to talk to family members at bedside ? Will continue monitor in ICU ? Nursing staff tells me that patient continues to have mucus secretions, continues to have a weak cough, patient is at high risk of aspiration, will continue placed on aspiration precautions, continue IV antibiotics, keep n.p.o. until formal speech therapy eval -Continue IV antibiotics continue Zyvox continue Zosyn, monitor heart rate monitor blood per monitor respiratory status closely, spoke to patient, spoke to nursing staff spoke to respiratory therapy, spoke to family at bedside Vitals/I&O/Wt Last Vital Signs Temp 98.8 F 11/11/23 08:15 Pulse 75 11/11/23 14:45 Resp 18 11/11/23 12:00 BP 118/69 11/11/23 12:00 Pulse Ox 96 11/11/23 14:45 O2 Del Method BiPAP 11/11/23 12:00 O2 Flow Rate 40 11/08/23 10:30 FiO2 40 11/11/23 14:45 11/11/23 11/11/23 11/11/23 06:59 14:59 22:59 Intake Total 610.773 / 1900.448 488.231 / 488.231 Balance 610.773 / -899.552 488.231 / 488.231 Weight last 48 hrs Weight 112.264 kg Weight 116.5 kg Weight 116.755 kg Weight 119.5 kg Physical Exam Const: COMMON NORMALS: no acute distress ORIENTATION/CONSCIOUSNESS: Yes awake, Yes oriented to person and Yes oriented to place; not oriented to time HENMT: COMMON NORMALS: normocephalic HEAD & SCALP: normocephalic Eye: COMMON NORMALS: Equal, round and reactive pupils present and EOMs intact bilaterally PUPIL: Yes Equal, round and reactive pupils present Lymph: LYMPHATIC: no lymphadenopathy noted Resp: COMMON NORMALS: normal respiratory effort, No retractions, No use of accessory muscles and clear to auscultation bilaterally AUSCULTATION: clear to auscultation bilaterally Cardio: COMMON NORMALS: regular rate, regular rhythm, S1 normal heart sound present and S2 normal heart sound present RATE: regular rate RHYTHM: regular rhythm HEART SOUNDS: S1 normal heart sound present and S2 normal heart sound present GI: COMMON NORMALS: Normal to inspection, nondistended, normoactive bowel sounds present and non-tender Extremity: COMMON NORMALS: no pedal edema Neuro: SENSORIUM/ORIENTATION: Yes oriented to person, Yes oriented to place and No oriented to time Psych: COMMON NORMALS: mental status grossly normal Urinary Catheter Management: Melgar: Cath Placed During This Visit: yes, but has since been removed by the nurse Reason for Continuing Indwelling Catheter: Decision to DC Catheter Urinary Catheter Date of Insertion: 11/05/23 Urinary Catheter Time of Insertion: 07:48 Date Urinary Catheter Removed: 11/06/23 Time Urinary Catheter Discontinued: 12:22 Data 11/11/23 03:30 11/11/23 04:48 Micro: Microbiology 11/05/23 Unknown Gram Stain - Final Peritoneal Fluid Anaerobic Culture - Preliminary Body Fluid Culture - Final A&P Assessment and plan (1) Chest pain: Original complaint of the patient was chest discomfort Troponin is elevated but trend is not concerning Must still be concerned about coronary disease with recent stenting, October 16 with drug-eluting stent as well as angioplasty. See report for details. Initially treated with heparin drip. Now stopped Echocardiogram, limited, demonstrates EF around 50%. This is slightly improved from previous Angiogram performed 11/07, patient recieved 2 angioplasties. It was not thought that these lesions were likely to cause his VFIb arrest but could have contributed to chest pain. Cardiology consult appreciated Continue Plavix Continue aspirin Continue statin Qualifiers: Chest pain type: unspecified Qualified Code(s): R07.9 - Chest pain, unspecified (2) Acute respiratory failure: Postcode extubated on bipap, weak cough, increased risk of aspiration, keep npo paitent is supposed to use bipap at night, according to daughter is noncompliant, continue bipap prn during alessandro, and scheduled during the night Lower lobe consolidation consistent with pneumonia seen on CT Continue IV antibiotics. Currently on Zosyn, Zyvox Paracentesis 5 L off Received dialysis yesterday 2 L off ? Dialysis today further fluid removal optimize for extubation, ? Continue spontaneous breathing trial ? Will likely need to extubate to BiPAP (3) Cardiac arrest: Status post V-fib cardiac arrest ROSC achieved Changed to amiodarone p.o. Rhythm currently sinus. Continue higher dose amiodarone to 400 twice daily for 1 week total from initiation. Sunday of next week should go down to 200mg BID (4) Ventricular fibrillation: Potassium has been corrected Nephrology consult appreciated Underwent ultrafiltration on November 04 and dialysis November 05 and November 06 (5) Atrial fibrillation: Placed on amiodarone, continue 400 mg twice daily as above I have discontinued Cardizem that was initiated in the emergency department. Currently in sinus rhythm Currently off full dose anticoagulation Qualifiers: Atrial fibrillation type: unspecified Qualified Code(s): I48.91 - Unspecified atrial fibrillation (6) Hypotension: Patient with severe hypotension This most likely is secondary to cardiac arrest as well as sepsis, now liekly secondary to dialysis, and hypoalbuminemia Currently on norepinephrine which has been weaned to 2. Continue patient's midodrine. Greatly improved Qualifiers: Hypotension type: idiopathic hypotension Qualified Code(s): I95.0 - Idiopathic hypotension (7) Sepsis: Resolved See findings under hypotension IV antibiotics consisting of linezolid, Zosyn Blood cultures negative to date Fluid from paracentesis obtained Culture negative to date CT chest abdomen pelvis done yesterday demonstrates bilateral lower lobe pneumonia. Sputum culture shows [place], sensitive to Zosyn. Awaiting MRSA PCR Was not candidate for any fluid bolus on admission secondary to fluid overload. X-ray right lower extremity demonstrated no obvious bone destruction CT chest and abdomen today showed pneumonia but no other sites of infection. (8) Type 2 diabetes mellitus: It does not appear like he is on any insulin Monitor blood sugars No sliding scale for now as concern of potential for hypoglycemia Qualifiers: Diabetes mellitus continuous churn buttermaker insulin use: without continuous churn buttermaker use Diabetes mellitus complication status: with kidney complications Diabetes mellitus complication detail: with chronic kidney disease Chronic kidney disease stage: on chronic dialysis Qualified Code(s): E11.22 - Type 2 diabetes mellitus with diabetic chronic kidney disease; N18.6 - End stage renal disease; Z99.2 - Dependence on renal dialysis (9) Abnormal TSH: TSH abnormal, elevated. Continue on Synthroid low-dose, 25 mcg secondary to arrhythmia Plan End-stage renal disease on hemodialysis with hyperkalemia. . Nephrology consult appreciated. He was ultrafiltrated on November 04. Dialysis was performed . [facility] Multiple other medical problems as outlined in past medical history Full code Heparin will suffice for DVT prophylaxis Does not produce significant urine chronically. Melgar was discontinued Probable extubation tomorrow. Low dose feeds initiated. - Patient was examined several times throughout the morning Early in the morning, patient was seen, currently on 45% BiPAP, he is on 2 of Levophed, on 50 of fentanyl, on Precedex, he follows all commands, is able to nod for me, able to about the day to be that he is doing okay able to squeeze both my fingers able to wiggle his toes, his edema has improved, he had dialysis yesterday with 2 L out ? Patient's daughter is at bedside, we discussed performing spontaneous breathing trial this morning, wean his oxygen, and plan on extubating later on this morning ? I had a detailed discussion with daughter at bedside that we will plan on extubating him later on this morning, he has a risk of reintubation, morbidity mortality associate with reintubation, and if he does get reintubated, he does have a high risk of morbidity on prolonged mechanical ventilation potentially requiring tracheostomy, DEXA? ed he is tolerated dialysis yesterday he is still a bit hypotensive, requiring minimal Levophed I think it is likely secondary to dialysis that he received yesterday's lactic acid within normal limits, he is afebrile, will give 1 dose albumin, continue midodrine ? Spoke to nursing staff, continue to monitor respiratory status closely spoke to speech therapy monitor respiratory status closely, plan for extubation patient ? Patient was reexamined, he has good minute ventilation, no tachypnea, following all commands no tachycardia, no recurrent hypotensive episodes, doing well on spontaneous breathing trial, ? Patient's daughter and patient's sister at bedside, discussed plan on extubating, risk benefits discussed, they voiced understanding, all questions answered, discussed risk of reintubation, morbidity mortality associated, risk of morbidity mortality associated if he does get reintubated, they voiced understanding, all questions answered, discussed plan on extubating him and onto BiPAP ? Patient's daughter confirms that patient uses BiPAP at home, he used to be compliant with it now is not compliant with IT -Patient was extubated, he had significant mucus and mucoid secretions, after extubation, requiring suctioning, does have a cough although week, next ?plan was to extubate him to BiPAP ? Patient was placed on BiPAP monitored on BiPAP, overall doing well no evidence of tachypnea no tachycardia, no evidence of respiratory distress, he is able to follow commands, able to talk to family members at bedside ? Will continue monitor in ICU ? Nursing staff tells me that patient continues to have mucus secretions, continues to have a weak cough, patient is at high risk of aspiration, will continue placed on aspiration precautions, continue IV antibiotics, keep n.p.o. until formal speech therapy eval -Continue IV antibiotics continue Zyvox continue Zosyn, monitor heart rate monitor blood per monitor respiratory status closely, spoke to patient, spoke to nursing staff spoke to respiratory therapy, spoke to family at bedside Attestations Medical Necessity Statement*: Patient requires hospitalization for acute respiratory failure s/p extubation, pneumonia, cardiac arrest, atrial fibrillation, renal failure Coding Level of Care Code Critical Care >/= 30 minutes Critical care time (in minutes): 60 The high probability of a clinically significant, sudden or life threatening deterioration, as referenced in this documentation, required my full and direct attention, intervention and personal management. The critical care time shown is in addition to time spent performing any reported separately billable procedures and includes the following: [x] Data and vital sign review and interpretation [x] Patient assessment, examination and intervention [x] Medication orders and management [x] Patient/Family updates as able [x] Care Coordination and Documentation. Diagnoses Chest pain R07.9 Chest pain type: unspecified Acute respiratory failure J96.00 Cardiac arrest I46.9 Ventricular fibrillation I49.01 Atrial fibrillation, unspecified type I48.91 Atrial fibrillation type: unspecified Idiopathic hypotension I95.0 Hypotension type: idiopathic hypotension Sepsis A41.9 Type 2 diabetes mellitus with chronic kidney disease on chronic dialysis, without long-term current use of insulin E11.22; N18.6; Z99.2 Diabetes mellitus penitentiary insulin use: without penitentiary use Diabetes mellitus complication status: with kidney complications Diabetes mellitus complication detail: with chronic kidney disease Chronic kidney disease stage: on chronic dialysis Abnormal TSH R79.89
[2023-11-11] MEDS: ipratropium-albuterol 3 mL Neb INHALATION ×2 (19:49→23:28)
[2023-11-11] MEDS: budesonide 0.5 mg/2 mL Neb INHALATION (19:49)
--- NOTE | 2023-11-11 20:24 | P.PN_ITS ---
Subjective 2 Subjective: Patient is extubated. Drowsy Vitals/I&O/Wt Last Vital Signs Temp 98.8 F 11/11/23 08:15 Pulse 76 11/11/23 19:54 Resp 29 H 11/11/23 19:49 BP 109/64 11/11/23 19:15 Pulse Ox 96 11/11/23 19:54 O2 Del Method BiPAP 11/11/23 19:49 O2 Flow Rate 4 11/11/23 17:41 FiO2 40 11/11/23 19:54 11/11/23 11/11/23 11/11/23 06:59 14:59 22:59 Intake Total 610.773 / 1900.448 488.231 / 488.231 Balance 610.773 / -899.552 488.231 / 488.231 Weight last 48 hrs Weight 247 lb 8 oz Weight 256 lb 13.416 oz Weight 257 lb 6.4 oz Physical Exam 2 Narrative: GENERAL: Patient is drowsy NECK: No jugular vein distension. [] HEENT: No cyanosis. No icterus. No pallor. [] HEART: Regular S1 and S2.Has grade 3/6 systolic murmur LUNGS: Clear to auscultate bilaterally. [] CENTRAL NERVOUS SYSTEM: Grossly nonfocal. [] EXTREMITIES: Left BKA. Urinary Catheter Management: Melgar: Cath Placed During This Visit: yes, but has since been removed by the nurse Reason for Continuing Indwelling Catheter: Decision to DC Catheter Urinary Catheter Date of Insertion: 11/05/23 Urinary Catheter Time of Insertion: 07:48 Date Urinary Catheter Removed: 11/06/23 Time Urinary Catheter Discontinued: 12:22 Data 11/13/23 04:40 11/13/23 04:40 Micro: Microbiology 11/05/23 Unknown Gram Stain - Final Peritoneal Fluid Anaerobic Culture - Preliminary Body Fluid Culture - Final A&P Assessment and plan (1) Ventricular fibrillation: (2) Atherosclerotic heart disease of [place] coronary artery with other forms of angina pectoris: (3) Type 2 diabetes mellitus: Qualifiers: Diabetes mellitus prison insulin use: without termite control representative use Diabetes mellitus complication status: with kidney complications Diabetes mellitus complication detail: with chronic kidney disease Chronic kidney disease stage: on chronic dialysis Qualified Code(s): E11.22 - Type 2 diabetes mellitus with diabetic chronic kidney disease; N18.6 - End stage renal disease; Z99.2 - Dependence on renal dialysis (4) End-stage renal disease on hemodialysis: (5) Anemia: Qualifiers: Anemia type: iron deficiency Iron deficiency anemia type: other iron deficiency Qualified Code(s): D50.8 - Other iron deficiency anemias (6) Acute and chronic respiratory failure with hypoxia: (7) Atrial fibrillation: Qualifiers: Atrial fibrillation type: unspecified Qualified Code(s): I48.91 - Unspecified atrial fibrillation (8) Ascites: Qualifiers: Ascites type: other type Qualified Code(s): R18.8 - Other ascites (9) Hypotension: Qualifiers: Hypotension type: idiopathic hypotension Qualified Code(s): I95.0 - Idiopathic hypotension (10) Aortic stenosis: Plan Patient is now extubated. Has pleuritic chest discomfort. Continue aspirin and Plavix. Thank you for involving us with care of this patient. We will continue to follow. Please call with questions. Attestations 2 Medical Necessity Statement*: Care expected to cross 2 midnights. Coding Level of Care Code Acute Code for [facility] Diagnoses Ventricular fibrillation I49.01 Atherosclerotic heart disease of [place] coronary artery with other forms of angina pectoris I25.118 Type 2 diabetes mellitus with chronic kidney disease on chronic dialysis, without long-term current use of insulin E11.22; N18.6; Z99.2 Diabetes mellitus prison insulin use: without termite control representative use Diabetes mellitus complication status: with kidney complications Diabetes mellitus complication detail: with chronic kidney disease Chronic kidney disease stage: on chronic dialysis End-stage renal disease on hemodialysis N18.6; Z99.2 Other iron deficiency anemia D50.8 Anemia type: iron deficiency Iron deficiency anemia type: other iron deficiency Acute and chronic respiratory failure with hypoxia J96.21 Atrial fibrillation, unspecified type I48.91 Atrial fibrillation type: unspecified Other ascites R18.8 Ascites type: other type Idiopathic hypotension I95.0 Hypotension type: idiopathic hypotension Aortic stenosis I35.0
--- NOTE | 2023-11-11 20:33 | PC.NURSE ---
Upon arrival to shift precedex was running at 0.2 mcg/kg/hr, MAR updated to reflect dose.
[2023-11-11] MEDS: HYDROmorphone 1 mg/mL INJ 1 mL 0.200000000000000011 MG IVP ×2 (21:01→23:26)
--- NOTE | 2023-11-11 22:00 | PC.NURSE ---
Patient had orders for linezolid IV, patient had this listed as an allergy but had already received it during this stay. Dr. Corey was notified and gave telephone orders to continue with the administration of linezolid and continue monitoring.
[2023-11-11 23:40] LABS: Glucose Point of Care 101 mg/dL (70-110)
[2023-11-12] VITALS (114 sets, daily range): BP systolic 76–147; BP diastolic 36–97; PULSE 70–166; RESP 15–96; TEMP 36–36.7; O2SAT 75–100; BMI 33.4
[2023-11-12] MEDS: dexmedeTOMIDine 0.9 % NaCL 400 MCG/100 ML PREMIX 14.5899999999999999 MCG IV ×2 (00:36→06:04)
[2023-11-12] MEDS: piperacillin-tazobactam 3.375 GM in sodium chloride 0.9% (plus) 50 ML IV ×3 (00:40→16:58)
--- NOTE | 2023-11-12 00:45 | PC.NURSE ---
Addendum entered by Sydni Babin RN 11/12/23 00:47: Witnessed waste. Original Note: Fentanyl Waste 96 ml of fentanyl wasted with GILMER Troy.
--- NOTE | 2023-11-12 00:53 | PC.NURSE ---
Addendum entered by Ary Salgado RN 11/12/23 00:54: Witnessed waste with Aminata SCHERER. Original Note: Propofol Waste Approximately 117 ml of propofol wasted with GILMER Mcallister.
[2023-11-12] MEDS: HYDROmorphone 1 mg/mL INJ 1 mL 0.200000000000000011 MG IVP ×7 (02:07→19:00)
[2023-11-12] MEDS: heparin 5,000 unit/mL INJ 1 mL 5000 UNIT SUBCUT ×2 (03:06→16:54)
[2023-11-12] MEDS: ipratropium-albuterol 3 mL Neb INHALATION ×6 (03:35→23:22)
[2023-11-12 05:11] LABS: Basophils # 0.1 10^3/uL (0.0-0.1); Basophils % 0.6 %; Eosinophils # 0.7 10^3/uL (0.0-0.8); Eosinophils % 8.7 %; Hematocrit 34.4 % (37-53); Lymphocytes # 0.7 10^3/uL (0.8-4.8); Mean Corpuscular HGB Conc 29.4 g/dL (30-55); Mean Corpuscular Hemoglobin 27.1 pg (27-33); Mean Corpuscular Volume 92.2 fl (82-101); Mean Platelet Volume 10.3 fL (7.4-10.4); Monocytes # 0.7 10^3/uL (0.2-0.9); Monocytes % 8.7 %; Neutrophils # 6.09 10^3/uL (1.8-7.7); Neutrophils % 73.6 %; Nucleated Red Blood Cells % 0 %; Platelet Count 86 10^3/cmm (157-399); Red Blood Count 3.73 10^6/uL (3.85-5.65); White Blood Count 8.27 10^3/uL (3.29-11.43)
[2023-11-12 06:29] LABS: INR 1.24 (0.8-1.2)
[2023-11-12 06:43] LABS: Lactate (Lactic Acid level) 1.5 mmol/L (0.5-2.2)
--- NOTE | 2023-11-12 07:00 | XRR_ITS ---
PROCEDURE INFORMATION: Exam: XR Chest Exam date and time: 11/12/2023 5:14 AM Age: 53 years old Clinical indication: Shortness of breath; Patient HX: Continued SOB. Hypotensive. On bipap. Post cardiac arrest seven days ago. TECHNIQUE: Imaging protocol: Radiologic exam of the chest. Views: 1 view. COMPARISON: CR (CHEST, ) 11/11/2023 9:16 AM FINDINGS: Lungs: Mild pulmonary vascular congestion. Pleural spaces: Small right pleural effusion Heart/Mediastinum: Cardiomegaly. Bones/joints: Unremarkable. XR/XR chest 1V portable [id number] IMPRESSION: Cardiomegaly with mild congestion. Small right pleural effusion
[2023-11-12 07:25] LABS: Alanine Aminotransferase 9 U/L (0-41); Albumin Level 2.6 g/dL (3.5-5.2); Alkaline Phosphatase 85 U/L (40-130); Blood Urea Nitrogen 35 mg/dL (6-20); C Reactive Protein 84.5 mg/L (0.0-4.9); Calcium 8.6 mg/dL (8.5-10.5); Carbon Dioxide 23 mmol/L (22-29); Chloride 96 mmol/L (98-107); Creatine Phosphokinase 48 U/L (39-308); Globulin 4.8 g/dL (1.3-4.6); Glomerular Filtration Rate 9.5 mL/min (90-130); Glucose 86 mg/dL (65-115); Osmolality Calculated 291 mOsm/kg (285-295); Procalcitonin 1.71 ng/mL (0-0.5); Sodium 137 mmol/L (136-145); Total Bilirubin 0.5 mg/dL (0.15-1.2); Total Protein 7.4 g/dL (6.6-8.7)
[2023-11-12 07:29] LABS: Anion Gap 22.5 (5-19); Aspartate Amino Transferase 21 U/L (0-40); Potassium 4.5 mmol/L (3.5-5.1)
[2023-11-12 07:33] LABS: Creatinine Clr Calc Pharmacy 18.3082; Phosphorus 7.6 mg/dL (2.5-4.5)
[2023-11-12] MEDS: budesonide 0.5 mg/2 mL Neb INHALATION ×2 (07:42→20:06)
[2023-11-12] MEDS: linezolid premix 600 MG/300 ML PREMIX 300 MG IV ×2 (08:04→20:05)
[2023-11-12] MEDS: pantoprazole 40 mg SDV IVP (08:04)
[2023-11-12 08:11] LABS: NT Pro B Type Natriuretic Pept > 70000 pg/mL (0-125)
[2023-11-12] MEDS: heparin, porcine 1,000 unit/mL INJ 10 mL 1000 UNIT IV (08:25)
[2023-11-12] MEDS: norepinephrine 4 MG/250 ML BAG 15 MG IV (09:26)
--- NOTE | 2023-11-12 09:35 | PC.SOCIAL ---
IMM Update pg 2 of IMM updated and reviewed w/ patient. Copy provided and copy dated, initialed and placed in chart.
[2023-11-12] MEDS: epoetin alfa 1000 Unit/0.05 mL (ESRD) 20000 UNIT IVP (11:18)
--- NOTE | 2023-11-12 13:56 | P.PN_ITS ---
Subjective 2 Subjective: getting HD Medications: Reviewed: Yes Vitals/I&O/Wt Last Vital Signs Temp 96.8 F L 11/12/23 11:44 Pulse 83 11/12/23 13:15 Resp 24 H 11/12/23 13:15 BP 86/49 11/12/23 13:15 Pulse Ox 94 11/12/23 13:15 O2 Del Method Nasal Cannula 11/12/23 08:15 O2 Flow Rate 5 11/12/23 11:50 FiO2 40 11/12/23 03:38 11/11/23 11/12/23 11/12/23 22:59 06:59 14:59 Intake Total 81.780 / 570.011 656.546 / 1226.557 738.422 / 738.422 Output Total 3300 / 3300 Balance 81.780 / 570.011 656.546 / 1226.557 -2561.578 / -2561.578 Weight last 48 hrs Weight 113 kg Weight 115 kg Weight 112.264 kg Weight 116.5 kg Physical Exam 2 Narrative: awake , on 5L NC Urinary Catheter Management: Melgar: Cath Placed During This Visit: yes, but has since been removed by the nurse Reason for Continuing Indwelling Catheter: Decision to DC Catheter Urinary Catheter Date of Insertion: 11/05/23 Urinary Catheter Time of Insertion: 07:48 Date Urinary Catheter Removed: 11/06/23 Time Urinary Catheter Discontinued: 12:22 Data 11/12/23 04:25 11/12/23 05:47 Micro: Microbiology 11/05/23 Unknown Gram Stain - Final Peritoneal Fluid Anaerobic Culture - Preliminary Body Fluid Culture - Final A&P Assessment and plan (1) End-stage renal disease on hemodialysis: 1. End-stage renal disease: On TTS schedule as outpatient, was hyperkalemic and status post cardiac arrest. hd today -Assess daily for HD needs 2. Status post V-fib, ROSC achieved currently on amiodarone and on pressors 3. Chest pain, workup in process, s/p LHC 4. Acute on chronic respiratory failure, 5. Hyperkalemia: improved 6. sepsis 7. Anemia: Hemoglobin 11.2 , monitor, ALBERTO with HD. Patient evaluated using audiovisual cart. Time spent 20 minutes Attestations 2 Medical Necessity Statement*: per medicine Coding Level of Care Code Acute Code for [facility] Diagnoses End-stage renal disease on hemodialysis N18.6; Z99.2
[2023-11-12] MEDS: clopidogrel 75 mg Tablet PO (14:06)
[2023-11-12] MEDS: aspirin 81 mg EC Tablet PO (14:06)
--- NOTE | 2023-11-12 15:57 | P.PN_ITS ---
Subjective 2 Subjective: Patient was seen this morning, currently off BiPAP, he is alert to person, to place, not to time he can follow commands, able to move both arms both legs, able to smile for me, continues to have a weak cough, continues to have thick mucus secretions, continues to be on 2 of Levophed, no fevers, no chills, no chest pain Vitals/I&O/Wt Last Vital Signs Temp 96.8 F L 11/12/23 11:44 Pulse 87 11/12/23 15:44 Resp 25 H 11/12/23 15:36 BP 100/55 11/12/23 14:00 Pulse Ox 96 11/12/23 15:44 O2 Del Method Nasal Cannula 11/12/23 08:15 O2 Flow Rate 4 11/12/23 15:36 FiO2 40 11/12/23 15:44 11/12/23 11/12/23 11/12/23 06:59 14:59 22:59 Intake Total 656.546 / 1226.557 738.422 / 738.422 Output Total 3300 / 3300 Balance 656.546 / 1226.557 -2561.578 / -2561.578 Weight last 48 hrs Weight 113 kg Weight 115 kg Weight 112.264 kg Physical Exam 2 Const: COMMON NORMALS: no acute distress ORIENTATION/CONSCIOUSNESS: Yes awake, Yes oriented to person and Yes oriented to place; not oriented to time Resp: COMMON NORMALS: normal respiratory effort, No retractions and No use of accessory muscles AUSCULTATION: crackles and wheezes Cardio: COMMON NORMALS: regular rate, regular rhythm, S1 normal heart sound present and S2 normal heart sound present RATE: regular rate RHYTHM: r egular rhythm HEART SOUNDS: S1 normal heart sound present and S2 normal heart sound present GI: COMMON NORMALS: Normal to inspection, nondistended, normoactive bowel sounds present and non-tender Extremity: COMMON NORMALS: no pedal edema Neuro: SENSORIUM/ORIENTATION: Yes oriented to person, Yes oriented to place and No oriented to time Urinary Catheter Management: Melgar: Cath Placed During This Visit: yes, but has since been removed by the nurse Reason for Continuing Indwelling Catheter: Decision to DC Catheter Urinary Catheter Date of Insertion: 11/05/23 Urinary Catheter Time of Insertion: 07:48 Date Urinary Catheter Removed: 11/06/23 Time Urinary Catheter Discontinued: 12:22 Data 11/12/23 04:25 11/12/23 05:47 Micro: Microbiology 11/05/23 Unknown Gram Stain - Final Peritoneal Fluid Anaerobic Culture - Final Body Fluid Culture - Final A&P Assessment and plan (1) Chest pain: Original complaint of the patient was chest discomfort Troponin is elevated but trend is not concerning Must still be concerned about coronary disease with recent stenting, October 16 with drug-eluting stent as well as angioplasty. See report for details. Initially treated with heparin drip. Now stopped Echocardiogram, limited, demonstrates EF around 50%. This is slightly improved from previous Angiogram performed 11/07, patient recieved 2 angioplasties. It was not thought that these lesions were likely to cause his VFIb arrest but could have contributed to chest pain. Cardiology consult appreciated Continue Plavix Continue aspirin Continue statin Qualifiers: Chest pain type: unspecified Qualified Code(s): R07.9 - Chest pain, unspecified (2) Acute respiratory failure: Postcode extubated on bipap, weak cough, increased risk of aspiration, keep npo paitent is supposed to use bipap at night, according to daughter is noncompliant, continue bipap prn during alessandro, and scheduled during the night Lower lobe consolidation consistent with pneumonia seen on CT Continue IV antibiotics. Currently on Zosyn, Zyvox Paracentesis 5 L off Received dialysis yesterday 2 L off, today does have crackles on exam concerns for fluid overload will receive dialysis today ? Concerns for high risk of aspiration, keep n.p.o., can add aspiration precautions ?Continue aggressive pulmonary toilet, aspiration precautions, up out of bed ? (3) Cardiac arrest: Status post V-fib cardiac arrest ROSC achieved Changed to amiodarone p.o. Rhythm currently sinus. Continue higher dose amiodarone to 400 twice daily for 1 week total from initiation. Sunday of next week should go down to 200mg BID (4) Ventricular fibrillation: Potassium has been corrected Nephrology consult appreciated Underwent ultrafiltration on November 04 and dialysis November 05 and November 06 (5) Atrial fibrillation: Placed on amiodarone, continue 400 mg twice daily as above I have discontinued Cardizem that was initiated in the emergency department. Currently in sinus rhythm Currently off full dose anticoagulation Qualifiers: Atrial fibrillation type: unspecified Qualified Code(s): I48.91 - Unspecified atrial fibrillation (6) Hypotension: Patient with severe hypotension This most likely is secondary to cardiac arrest as well as sepsis, now liekly secondary to dialysis, and hypoalbuminemia Currently on norepinephrine which has been weaned to 2. Continue patient's midodrine. Greatly improved Qualifiers: Hypotension type: idiopathic hypotension Qualified Code(s): I95.0 - Idiopathic hypotension (7) Sepsis: Resolved See findings under hypotension IV antibiotics consisting of linezolid, Zosyn Blood cultures negative to date Fluid from paracentesis obtained Culture negative to date CT chest abdomen pelvis done yesterday demonstrates bilateral lower lobe pneumonia. Sputum culture shows C[place], sensitive to Zosyn. Awaiting MRSA PCR Was not candidate for any fluid bolus on admission secondary to fluid overload. X-ray right lower extremity demonstrated no obvious bone destruction CT chest and abdomen today showed pneumonia but no other sites of infection. (8) Type 2 diabetes mellitus: It does not appear like he is on any insulin Monitor blood sugars No sliding scale for now as concern of potential for hypoglycemia Qualifiers: Diabetes mellitus investment analyst insulin use: without investment analyst use Diabetes mellitus complication status: with kidney complications Diabetes mellitus complication detail: with chronic kidney disease Chronic kidney disease stage: on chronic dialysis Qualified Code(s): E11.22 - Type 2 diabetes mellitus with diabetic chronic kidney disease; N18.6 - End stage renal disease; Z99.2 - Dependence on renal dialysis (9) Abnormal TSH: TSH abnormal, elevated. Continue on Synthroid low-dose, 25 mcg secondary to arrhythmia Plan End-stage renal disease on hemodialysis with hyperkalemia. . Nephrology consult appreciated. He was ultrafiltrated on November 04. Dialysis was performed 13. DIALYSIS today Multiple other medical problems as outlined in past medical history Full code Heparin will suffice for DVT prophylaxis Does not produce significant urine chronically. Melgar was discontinued Probable extubation tomorrow. Low dose feeds initiated. Plan for today patient continues to have a weak cough, trouble Clearing mucus secretions, will have speech therapy see patient, continue to keep n.p.o., continue IV antibiotics, still remains on 2 of Levophed, wean as tolerated needs to be on scheduled BiPAP during the night, as needed during the day, spoke to speech therapy, patient remains increased aspiration risk will keep n.p.o. but can add medications, spoke to nursing staff, patient will get his aspirin Plavix today, but keep strict n.p.o. just for medications, continue to monitor heart rates, for atrial fibrillation we will continue to monitor, hold off on full dose anticoagulation for now monitoring patient's clinical progress, will consider Eliquis, remains 2 of Levophed will wean as tolerated, patient will receive dialysis today as chest x-ray shows pulm vascular congestion, spoke to patient, spoke to nursing staff, spoke to speech therapy, aggressive pulmonary toilet, up out of bed, incentive spirometer and flutter valve Attestations 2 Medical Necessity Statement*: Requires hospitalization for cardiac arrest, respiratory failure, fluid overload, high aspiration risk, Diagnoses Chest pain R07.9 Chest pain type: unspecified Acute respiratory failure J96.00 Cardiac arrest I46.9 Ventricular fibrillation I49.01 Atrial fibrillation, unspecified type I48.91 Atrial fibrillation type: unspecified Idiopathic hypotension I95.0 Hypotension type: idiopathic hypotension Sepsis A41.9 Type 2 diabetes mellitus with chronic kidney disease on chronic dialysis, without long-term current use of insulin E11.22; N18.6; Z99.2 Diabetes mellitus investment analyst insulin use: without investment analyst use Diabetes mellitus complication status: with kidney complications Diabetes mellitus complication detail: with chronic kidney disease Chronic kidney disease stage: on chronic dialysis Abnormal TSH R79.89
--- NOTE | 2023-11-12 16:33 | P.PN_ITS ---
Subjective 2 Subjective: Patient has crackles. Says has chest discomfort with deep breaths. Vitals/I&O/Wt Last Vital Signs Temp 96.8 F L 11/12/23 11:44 Pulse 87 11/12/23 15:44 Resp 25 H 11/12/23 15:36 BP 100/55 11/12/23 14:00 Pulse Ox 96 11/12/23 15:44 O2 Del Method Nasal Cannula 11/12/23 08:15 O2 Flow Rate 4 11/12/23 15:36 FiO2 40 11/12/23 15:44 11/12/23 11/12/23 11/12/23 06:59 14:59 22:59 Intake Total 656.546 / 1226.557 738.422 / 738.422 Output Total 3300 / 3300 Balance 656.546 / 1226.557 -2561.578 / -2561.578 Weight last 48 hrs Weight 249 lb 1.957 oz Weight 253 lb 8.505 oz Weight 247 lb 8 oz Physical Exam 2 Narrative: GENERAL: Patient is alert NECK: No jugular vein distension. [] HEENT: No cyanosis. No icterus. No pallor. [] HEART: Regular S1 and S2.Has grade 3/6 systolic murmur LUNGS: Diminished air entry with crackles. CENTRAL NERVOUS SYSTEM: Grossly nonfocal. [] EXTREMITIES: Left BKA. Urinary Catheter Management: Melgar: Cath Placed During This Visit: yes, but has since been removed by the nurse Reason for Continuing Indwelling Catheter: Decision to DC Catheter Urinary Catheter Date of Insertion: 11/05/23 Urinary Catheter Time of Insertion: 07:48 Date Urinary Catheter Removed: 11/06/23 Time Urinary Catheter Discontinued: 12:22 Data 11/13/23 04:40 11/13/23 04:40 Micro: Microbiology 11/05/23 Unknown Gram Stain - Final Peritoneal Fluid Anaerobic Culture - Final Body Fluid Culture - Final A&P Assessment and plan (1) Ventricular fibrillation: (2) Atherosclerotic heart disease of [place] coronary artery with other forms of angina pectoris: (3) Type 2 diabetes mellitus: Qualifiers: Diabetes mellitus shelter insulin use: without superintendent marine oil terminal use Diabetes mellitus complication status: with kidney complications Diabetes mellitus complication detail: with chronic kidney disease Chronic kidney disease stage: on chronic dialysis Qualified Code(s): E11.22 - Type 2 diabetes mellitus with diabetic chronic kidney disease; N18.6 - End stage renal disease; Z99.2 - Dependence on renal dialysis (4) End-stage renal disease on hemodialysis: (5) Anemia: Qualifiers: Anemia type: iron deficiency Iron deficiency anemia type: other iron deficiency Qualified Code(s): D50.8 - Other iron deficiency anemias (6) Acute and chronic respiratory failure with hypoxia: (7) Atrial fibrillation: Qualifiers: Atrial fibrillation type: unspecified Qualified Code(s): I48.91 - Unspecified atrial fibrillation (8) Ascites: Qualifiers: Ascites type: other type Qualified Code(s): R18.8 - Other ascites (9) Hypotension: Qualifiers: Hypotension type: idiopathic hypotension Qualified Code(s): I95.0 - Idiopathic hypotension (10) Aortic stenosis: Plan Patient/shortness of breath. Has pleuritic chest pain. Continue medical therapy. Continue aspirin and Plavix Thank you for involving us with care of this patient. We will continue to follow. Please call with questions. Attestations 2 Medical Necessity Statement*: Care expected to cross 2 midnights. Coding Level of Care Code Acute Code for [facility] Diagnoses Ventricular fibrillation I49.01 Atherosclerotic heart disease of [place] coronary artery with other forms of angina pectoris I25.118 Type 2 diabetes mellitus with chronic kidney disease on chronic dialysis, without long-term current use of insulin E11.22; N18.6; Z99.2 Diabetes mellitus superintendent marine oil terminal insulin use: without shelter use Diabetes mellitus complication status: with kidney complications Diabetes mellitus complication detail: with chronic kidney disease Chronic kidney disease stage: on chronic dialysis End-stage renal disease on hemodialysis N18.6; Z99.2 Other iron deficiency anemia D50.8 Anemia type: iron deficiency Iron deficiency anemia type: other iron deficiency Acute and chronic respiratory failure with hypoxia J96.21 Atrial fibrillation, unspecified type I48.91 Atrial fibrillation type: unspecified Other ascites R18.8 Ascites type: other type Idiopathic hypotension I95.0 Hypotension type: idiopathic hypotension Aortic stenosis I35.0
[2023-11-12] MEDS: amiodarone 200 mg Tablet 400 MG PO (17:00)
[2023-11-12] MEDS: dexmedeTOMIDine 0.9 % NaCL 400 MCG/100 ML PREMIX 5.83999999999999986 MCG IV (23:01)
--- NOTE | 2023-11-12 23:03 | PC.NURSE ---
Upon arrival to shift, patient's precedex was running at 0.2, MAR changed to reflect dose.
[2023-11-13] VITALS (73 sets, daily range): BP systolic 67–134; BP diastolic 30–98; PULSE 83–105; RESP 10–29; TEMP 36.4–36.6; O2SAT 68–100; BMI 32.5
[2023-11-13] MEDS: piperacillin-tazobactam 3.375 GM in sodium chloride 0.9% (plus) 50 ML IV ×3 (00:42→17:41)
[2023-11-13] MEDS: HYDROmorphone 1 mg/mL INJ 1 mL 0.200000000000000011 MG IVP ×3 (00:55→09:54)
[2023-11-13] MEDS: acetaminophen 325 mg Tablet 650 MG PO ×2 (01:36→20:58)
[2023-11-13] MEDS: trazodone 50 mg Tablet PO ×2 (01:37→20:57)
--- NOTE | 2023-11-13 01:58 | PC.NURSE ---
Dr. Pope was at bedside of patient, was informed of black tarry stool of this evening. Dr. Pope was also informed of patient's inability to sleep and the home meds that have not been given during his stay. Dr. Pope gave verbal orders to begin his home dose of 50mg Trazodone at bedtime.
[2023-11-13] MEDS: ipratropium-albuterol 3 mL Neb INHALATION ×5 (03:33→20:01)
[2023-11-13] MEDS: heparin 5,000 unit/mL INJ 1 mL 5000 UNIT SUBCUT (03:33)
[2023-11-13 05:17] LABS: Basophils # 0.1 10^3/uL (0.0-0.1); Basophils % 0.8 %; Eosinophils # 0.5 10^3/uL (0.0-0.8); Hematocrit 35.6 % (37-53); Lymphocytes # 0.6 10^3/uL (0.8-4.8); Lymphocytes % 7.3 %; Mean Corpuscular HGB Conc 29.5 g/dL (30-55); Mean Corpuscular Hemoglobin 26.6 pg (27-33); Mean Corpuscular Volume 90.4 fl (82-101); Mean Platelet Volume 10.7 fL (7.4-10.4); Monocytes # 0.6 10^3/uL (0.2-0.9); Monocytes % 7.7 %; Neutrophils # 6.01 10^3/uL (1.8-7.7); Neutrophils % 77.8 %; Nucleated Red Blood Cells % 0 %; Platelet Count 93 10^3/cmm (157-399); Red Blood Count 3.94 10^6/uL (3.85-5.65); Red Cell Distribution Width 16.8 % (12.1-15.1); White Blood Count 7.71 10^3/uL (3.29-11.43)
[2023-11-13 05:36] LABS: INR 1.27 (0.8-1.2)
[2023-11-13 05:41] LABS: Alanine Aminotransferase 9 U/L (0-41); Albumin Level 2.8 g/dL (3.5-5.2); Alkaline Phosphatase 83 U/L (40-130); Blood Urea Nitrogen 29 mg/dL (6-20); Calcium 8.7 mg/dL (8.5-10.5); Carbon Dioxide 25 mmol/L (22-29); Chloride 96 mmol/L (98-107); Creatinine Clr Calc Pharmacy 20.0972; Globulin 5.1 g/dL (1.3-4.6); Glomerular Filtration Rate 10.7 mL/min (90-130); Glucose 95 mg/dL (65-115); Osmolality Calculated 294 mOsm/kg (285-295); Phosphorus 6.7 mg/dL (2.5-4.5); Sodium 139 mmol/L (136-145); Total Bilirubin 0.8 mg/dL (0.15-1.2); Total Protein 7.9 g/dL (6.6-8.7)
[2023-11-13 05:48] LABS: Lactate (Lactic Acid level) 1.5 mmol/L (0.5-2.2)
[2023-11-13 06:00] LABS: Anion Gap 22.1 (5-19); Aspartate Amino Transferase 16 U/L (0-40); Potassium 4.1 mmol/L (3.5-5.1)
--- NOTE | 2023-11-13 06:03 | PM.PN ---
Subjective Subjective: Patient has chest pain however secondary to chest compressions. No pressure Vitals/I&O/Wt Last Vital Signs Temp 97.6 F 11/13/23 03:45 Pulse 91 11/13/23 04:30 Resp 18 11/13/23 04:30 BP 121/77 11/13/23 04:30 Pulse Ox 80 L 11/13/23 04:15 O2 Del Method BiPAP 11/13/23 03:45 O2 Flow Rate 5 11/12/23 17:00 FiO2 40 11/13/23 03:34 11/12/23 11/12/23 11/13/23 14:59 22:59 06:59 Intake Total 738.422 / 738.422 73.36 / 811.782 468.457 / 1280.239 Output Total 3300 / 3300 Balance -2561.578 / -2561.578 73.36 / -2488.218 468.457 / -2019.761 Weight last 48 hrs Weight 249 lb 1.957 oz Weight 253 lb 8.505 oz Physical Exam Narrative: GENERAL: Patient is alert NECK: No jugular vein distension. [] HEENT: No cyanosis. No icterus. No pallor. [] HEART: Regular S1 and S2.Has grade 3/6 systolic murmur LUNGS: Diminished air entry with crackles. CENTRAL NERVOUS SYSTEM: Grossly nonfocal. [] EXTREMITIES: Left BKA. Urinary Catheter Management: Melgar: Cath Placed During This Visit: yes, but has since been removed by the nurse Reason for Continuing Indwelling Catheter: Decision to DC Catheter Urinary Catheter Date of Insertion: 11/05/23 Urinary Catheter Time of Insertion: 07:48 Date Urinary Catheter Removed: 11/06/23 Time Urinary Catheter Discontinued: 12:22 Data 11/14/23 04:00 11/14/23 05:55 Micro: Microbiology 11/05/23 Unknown Gram Stain - Final Peritoneal Fluid Anaerobic Culture - Final Body Fluid Culture - Final A&P Assessment and plan (1) Ventricular fibrillation: (2) Atherosclerotic heart disease of [place] coronary artery with other forms of angina pectoris: (3) Type 2 diabetes mellitus: Qualifiers: Diabetes mellitus intermodal customer service insulin use: without snf use Diabetes mellitus complication status: with kidney complications Diabetes mellitus complication detail: with chronic kidney disease Chronic kidney disease stage: on chronic dialysis Qualified Code(s): E11.22 - Type 2 diabetes mellitus with diabetic chronic kidney disease; N18.6 - End stage renal disease; Z99.2 - Dependence on renal dialysis (4) End-stage renal disease on hemodialysis: (5) Anemia: Qualifiers: Anemia type: iron deficiency Iron deficiency anemia type: other iron deficiency Qualified Code(s): D50.8 - Other iron deficiency anemias (6) Acute and chronic respiratory failure with hypoxia: (7) Atrial fibrillation: Qualifiers: Atrial fibrillation type: unspecified Qualified Code(s): I48.91 - Unspecified atrial fibrillation (8) Ascites: Qualifiers: Ascites type: other type Qualified Code(s): R18.8 - Other ascites (9) Hypotension: Qualifiers: Hypotension type: idiopathic hypotension Qualified Code(s): I95.0 - Idiopathic hypotension (10) Aortic stenosis: Plan Patient's chest pain is atypical. Secondary to chest compressions. Continue current medications including dual antiplatelet therapy. Thank you for involving us with care of this patient. We will continue to follow. Please call with questions. Attestations Medical Necessity Statement*: Care expected to cross 2 midnights. Coding Level of Care Code Acute Code for [facility] Diagnoses Ventricular fibrillation I49.01 Atherosclerotic heart disease of [place] coronary artery with other forms of angina pectoris I25.118 Type 2 diabetes mellitus with chronic kidney disease on chronic dialysis, without long-term current use of insulin E11.22; N18.6; Z99.2 Diabetes mellitus intermodal customer service insulin use: without snf use Diabetes mellitus complication status: with kidney complications Diabetes mellitus complication detail: with chronic kidney disease Chronic kidney disease stage: on chronic dialysis End-stage renal disease on hemodialysis N18.6; Z99.2 Other iron deficiency anemia D50.8 Anemia type: iron deficiency Iron deficiency anemia type: other iron deficiency Acute and chronic respiratory failure with hypoxia J96.21 Atrial fibrillation, unspecified type I48.91 Atrial fibrillation type: unspecified Other ascites R18.8 Ascites type: other type Idiopathic hypotension I95.0 Hypotension type: idiopathic hypotension Aortic stenosis I35.0
[2023-11-13] MEDS: levothyroxine 25 mcg Tablet PO (06:06)
[2023-11-13] MEDS: venlafaxine ER (24HR) 75 mg Capsule PO (06:06)
[2023-11-13 06:17] LABS: Creatine Phosphokinase 52 U/L (39-308); Procalcitonin 2.03 ng/mL (0-0.5)
[2023-11-13 07:16] LABS: NT Pro B Type Natriuretic Pept > 70000 pg/mL (0-125)
[2023-11-13] MEDS: budesonide 0.5 mg/2 mL Neb INHALATION ×2 (07:39→20:01)
[2023-11-13] MEDS: atorvastatin 40 mg Tablet 80 MG PO (07:56)
[2023-11-13] MEDS: amiodarone 200 mg Tablet 400 MG PO ×2 (07:56→17:40)
[2023-11-13] MEDS: pantoprazole 40 mg SDV IVP (07:57)
[2023-11-13] MEDS: aspirin 81 mg EC Tablet PO (07:57)
[2023-11-13] MEDS: clopidogrel 75 mg Tablet PO (07:57)
[2023-11-13] MEDS: linezolid premix 600 MG/300 ML PREMIX 300 MG IV ×2 (09:38→21:01)
[2023-11-13] MEDS: lanolin oint 7 gm 1 APPLIC TOPICAL (09:40)
--- NOTE | 2023-11-13 13:48 | PC.NURSE ---
Pt sitting up in chair. Assisted there with nadia, PT was at bedside. He has been on the call light every 15 minutes since indicating he wants to get back into the bed. Staff has been encouraging him to sit a little longer as Dr Bal stated he wanted pt to be sitting up in chair for speech therapy.
[2023-11-13] MEDS: gabapentin 300 mg Capsule PO ×2 (13:54→20:58)
--- NOTE | 2023-11-13 14:41 | P.PN_ITS ---
Subjective 2 Subjective: no new complaints Medications: Reviewed: Yes Vitals/I&O/Wt Last Vital Signs Temp 97.6 F 11/13/23 11:43 Pulse 92 11/13/23 11:30 Resp 26 H 11/13/23 11:30 BP 113/71 11/13/23 11:30 Pulse Ox 93 11/13/23 11:30 O2 Del Method Nasal Cannula 11/13/23 11:30 O2 Flow Rate 5 11/13/23 11:30 FiO2 40 11/13/23 03:34 11/12/23 11/13/23 11/13/23 22:59 06:59 14:59 Intake Total 73.36 / 811.782 518.457 / 1330.239 396.089 / 396.089 Balance 73.36 / -2488.218 518.457 / -1969.761 396.089 / 396.089 Weight last 48 hrs Weight 112 kg Weight 113 kg Weight 115 kg Physical Exam 2 Narrative: awake , on 2L NC Urinary Catheter Management: Melgar: Cath Placed During This Visit: yes, but has since been removed by the nurse Reason for Continuing Indwelling Catheter: Decision to DC Catheter Urinary Catheter Date of Insertion: 11/05/23 Urinary Catheter Time of Insertion: 07:48 Date Urinary Catheter Removed: 11/06/23 Time Urinary Catheter Discontinued: 12:22 Data 11/13/23 04:40 11/13/23 04:40 Micro: Microbiology 11/05/23 Unknown Gram Stain - Final Peritoneal Fluid Anaerobic Culture - Final Body Fluid Culture - Final A&P Assessment and plan (1) End-stage renal disease on hemodialysis: 1. End-stage renal disease: On TTS schedule as outpatient, was hyperkalemic and status post cardiac arrest. hd tomorrow -Assess daily for HD needs 2. Status post V-fib, ROSC achieved currently on amiodarone and on pressors 3. Chest pain, workup in process, s/p LHC 4. Acute on chronic respiratory failure, extubated 5. Hyperkalemia: improved 6. sepsis 7. Anemia: Hemoglobin 11.2 , monitor, ALBERTO with HD. Patient evaluated using audiovisual cart. Time spent 20 minutes Attestations 2 Medical Necessity Statement*: per mark Coding Level of Care Code Acute Code for [facility] Diagnoses End-stage renal disease on hemodialysis N18.6; Z99.2
--- NOTE | 2023-11-13 15:04 | PM.PN ---
Subjective Subjective: Patient was seen this morning, he is alert to person, to place, not to time, currently on 5 L nasal cannula, afebrile overnight, blood pressures are soft, but off pressors, can follow commands, Vitals/I&O/Wt Last Vital Signs Temp 97.6 F 11/13/23 11:43 Pulse 92 11/13/23 11:30 Resp 26 H 11/13/23 11:30 BP 113/71 11/13/23 11:30 Pulse Ox 93 11/13/23 11:30 O2 Del Method Nasal Cannula 11/13/23 11:30 O2 Flow Rate 5 11/13/23 11:30 FiO2 40 11/13/23 03:34 11/13/23 11/13/23 11/13/23 06:59 14:59 22:59 Intake Total 518.457 / 1330.239 396.089 / 396.089 Balance 518.457 / -1969.761 396.089 / 396.089 Weight last 48 hrs Weight 112 kg Weight 113 kg Weight 115 kg Physical Exam Const: COMMON NORMALS: no acute distress ORIENTATION/CONSCIOUSNESS: Yes awake, Yes oriented to person and Yes oriented to place; not oriented to time Resp: COMMON NORMALS: normal respiratory effort, No retractions and No use of accessory muscles AUSCULTATION: crackles and wheezes Cardio: COMMON NORMALS: regular rate, regular rhythm, S1 normal heart sound present and S2 normal heart sound present RATE: regular rate RHYTHM: regular rhythm HEART SOUNDS: S1 normal heart sound present and S2 normal heart sound present GI: COMMON NORMALS: Normal to inspection, nondistended, normoactive bowel sounds present and non-tender Extremity: COMMON NORMALS: no pedal edema Neuro: SENSORIUM/ORIENTATION: Yes oriented to person, Yes oriented to place and No oriented to time Psych: COMMON NORMALS: mental status grossly normal Urinary Catheter Management: Melgar: Cath Placed During This Visit: yes, but has since been removed by the nurse Reason for Continuing Indwelling Catheter: Decision to DC Catheter Urinary Catheter Date of Insertion: 11/05/23 Urinary Catheter Time of Insertion: 07:48 Date Urinary Catheter Removed: 11/06/23 Time Urinary Catheter Discontinued: 12:22 Data 11/13/23 04:40 11/13/23 04:40 Micro: Microbiology 11/05/23 Unknown Gram Stain - Final Peritoneal Fluid Anaerobic Culture - Final Body Fluid Culture - Final A&P Assessment and plan (1) Chest pain: Original complaint of the patient was chest discomfort Troponin is elevated but trend is not concerning Must still be concerned about coronary disease with recent stenting, October 16 with drug-eluting stent as well as angioplasty. See report for details. Initially treated with heparin drip. Now stopped Echocardiogram, limited, demonstrates EF around 50%. This is slightly improved from previous Angiogram performed 11/07, patient recieved 2 angioplasties. It was not thought that these lesions were likely to cause his VFIb arrest but could have contributed to chest pain. Cardiology consult appreciated Continue Plavix Continue aspirin Continue statin Qualifiers: Chest pain type: unspecified Qualified Code(s): R07.9 - Chest pain, unspecified (2) Acute respiratory failure: Postcode extubated on bipap, weak cough, increased risk of aspiration, keep npo paitent is supposed to use bipap at night, according to daughter is noncompliant, continue bipap prn during alessandro, and scheduled during the night Lower lobe consolidation consistent with pneumonia seen on CT Continue IV antibiotics. Currently on Zosyn, Zyvox Paracentesis 5 L off Received dialysis yesterday 2 L off, today does have crackles on exam concerns for fluid overload will receive dialysis today ? Concerns for high risk of aspiration, keep n.p.o., can add aspiration precautions ?Continue aggressive pulmonary toilet, aspiration precautions, up out of bed ? (3) Cardiac arrest: Status post V-fib cardiac arrest ROSC achieved Changed to amiodarone p.o. Rhythm currently sinus. Continue higher dose amiodarone to 400 twice daily for 1 week total from initiation. Sunday of next week should go down to 200mg BID (4) Ventricular fibrillation: Potassium has been corrected Nephrology consult appreciated Underwent ultrafiltration on November 04 and dialysis November 05 and November 06 (5) Atrial fibrillation: Placed on amiodarone, continue 400 mg twice daily as above I have discontinued Cardizem that was initiated in the emergency department. Currently in sinus rhythm Currently off full dose anticoagulation Qualifiers: Atrial fibrillation type: unspecified Qualified Code(s): I48.91 - Unspecified atrial fibrillation (6) Hypotension: Patient with severe hypotension This most likely is secondary to cardiac arrest as well as sepsis, now liekly secondary to dialysis, and hypoalbuminemia Currently on norepinephrine which has been weaned to 2. Continue patient's midodrine. Greatly improved Qualifiers: Hypotension type: idiopathic hypotension Qualified Code(s): I95.0 - Idiopathic hypotension (7) Sepsis: Resolved See findings under hypotension IV antibiotics consisting of linezolid, Zosyn Blood cultures negative to date Fluid from paracentesis obtained Culture negative to date CT chest abdomen pelvis done yesterday demonstrates bilateral lower lobe pneumonia. Sputum culture shows Cedecea, sensitive to Zosyn. Awaiting MRSA PCR Was not candidate for any fluid bolus on admission secondary to fluid overload. X-ray right lower extremity demonstrated no obvious bone destruction CT chest and abdomen today showed pneumonia but no other sites of infection. 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 Continue on Synthroid low-dose, 25 mcg secondary to arrhythmia Plan End-stage renal disease on hemodialysis with hyperkalemia. . Nephrology consult appreciated. He was ultrafiltrated on November 04. Dialysis was performed 13. DIALYSIS today Multiple other medical problems as outlined in past medical history Full code Heparin will suffice for DVT prophylaxis Does not produce significant urine chronically. Melgar was discontinued Probable extubation tomorrow. Low dose feeds initiated. Plan for today continue aggressive pulmonary toilet, up out of bed, continue Zyvox, Zosyn, will keep n.p.o., until speech therapy eval as patient is high risk of aspiration, will place on Eliquis, speak to cardiology about antiplatelet therapy, wean off Precedex drip, continue p.o. amiodarone monitor heart rates,will start his gabapentin, Requip, spoke to cardiology stop aspirin, Eliquis 5 mg twice daily, continue to monitor closely Attestations Medical Necessity Statement*: Patient requires hospitalization for cardiac arrest, now respiratory failure, end-stage renal disease receiving dialysis, deconditioning, protein, malnutrition high aspiration risk ED n.p.o. Diagnoses Chest pain R07.9 Chest pain type: unspecified Acute respiratory failure J96.00 Cardiac arrest I46.9 Ventricular fibrillation I49.01 Atrial fibrillation, unspecified type I48.91 Atrial fibrillation type: unspecified Idiopathic hypotension I95.0 Hypotension type: idiopathic hypotension Sepsis A41.9 Type 2 diabetes mellitus with chronic kidney disease on chronic dialysis, without long-term current use of insulin E11.22; N18.6; Z99.2 Diabetes mellitus long-term insulin use: without equipment operator intermodal yard use Diabetes mellitus complication status: with kidney complications Diabetes mellitus complication detail: with chronic kidney disease Chronic kidney disease stage: on chronic dialysis Abnormal TSH R79.89
--- NOTE | 2023-11-13 18:06 | PC.NURSE ---
Shift summary: Pt has been very demanding and needy this shift. he has used the call light nearly every 15 minutes. Sometimes ust because he could not find the call light. He has been repositioned very frequently at his request. Levophed gtt has not been on this shift. Precedex gtt stopped this am, no change in his level of agitation or anxiety noted. Sinus rhtyhm noted on monitor. Heparin subq stopped, Eliquis dosage increased. He has been up to chair using Bhakti today. He started requesting to go back to bed within 15minutes. We did managed to cajole him to sit up for at least an hour. Speech therapy came by later, pt passed enough to get a diet order. He is on aspiration precautions. No urine out put. He has been incontinent numerous times of loose stool. his bottom is excoriated slightly. Dilaudid discontinued. He now hs low dose of MOrphine for pain PRN. Requip and Gabapentin has been restarted PRN. He had Diluadid once this shift in am. He has had 1 dose of Gabapentin this afternoon.
--- NOTE | 2023-11-13 20:07 | ECG_ITS ---
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 Measurements Intervals [place] Rate: 93 P: 13 MA: 207 QRS: 111 QRSD: 121 T: 20 QT: 391 QTc: 488 Interpretive Statements SINUS RHYTHM RIGHT AXIS DEVIATION [QRS AXIS > 100] RIGHT BUNDLE BRANCH BLOCK [120+ ms QRS DURATION, UPRIGHT V1, 40+ ms S IN I/aVL/V4/V5/V6] SEPTAL MYOCARDIAL INFARCTION , PROBABLY OLD [40+ ms Q WAVE IN V1/V2] Compared to ECG 11/05/2023 09:19:38 Right-axis deviation now present Myocardial infarct finding now present Sinus arrhythmia no longer present Left posterior fascicular block no longer present Electronically Signed On 11-14-2023 15:29:27 CDT by Colby Fernandez M.D. [email or web address]
--- NOTE | 2023-11-13 20:15 | PC.NURSE ---
Chest Pain: Pt reporting chest pain 03/08. EKG done. Upon further inspection and questioning there is slight bruising to the center (sustained during CPR) of the chest and pt states he is sore when moving his arms. See MAR for medications given.
[2023-11-13] MEDS: morphine 4 mg/mL SDV 1 mL 0.5 MG IVP (20:17)
[2023-11-13] MEDS: ropinirole 0.25 mg Tablet PO (20:57)
[2023-11-13] MEDS: apixaban 5 mg Tablet PO (20:57)
[2023-11-13] MEDS: chlorhexidine gluconate 4% Btl 118 mL 1 APPLIC TOPICAL (21:40)
[2023-11-14] VITALS (44 sets, daily range): BP systolic 82–132; BP diastolic 43–86; PULSE 88–96; RESP 13–33; TEMP 36.3–37.1; O2SAT 83–100; BMI 32.3
[2023-11-14] MEDS: ipratropium-albuterol 3 mL Neb INHALATION ×5 (00:26→17:32)
[2023-11-14] MEDS: piperacillin-tazobactam 3.375 GM in sodium chloride 0.9% (plus) 50 ML IV (00:33)
[2023-11-14] MEDS: morphine 4 mg/mL SDV 1 mL 0.5 MG IVP ×4 (00:34→23:40)
--- NOTE | 2023-11-14 02:30 | PC.NURSE ---
Bipap: Pt not wanting to wear bipap for very long, will only wear it for about 45 minutes at a time and then asks to wear nasal cannula instead. Frequent education on the importance of wearing bipap. Pt only aggreable to wearing it for short amounts of time.
[2023-11-14 05:03] LABS: Basophils # 0.1 10^3/uL (0.0-0.1); Basophils % 1.1 %; Eosinophils # 0.6 10^3/uL (0.0-0.8); Eosinophils % 11.4 %; Lymphocytes # 0.5 10^3/uL (0.8-4.8); Lymphocytes % 9.6 %; Mean Corpuscular HGB Conc 29.4 g/dL (30-55); Mean Corpuscular Hemoglobin 26.9 pg (27-33); Mean Corpuscular Volume 91.4 fl (82-101); Mean Platelet Volume 11.4 fL (7.4-10.4); Monocytes # 0.5 10^3/uL (0.2-0.9); Monocytes % 8.2 %; Neutrophils # 3.91 10^3/uL (1.8-7.7); Neutrophils % 69.3 %; Nucleated Red Blood Cells % 0 %; Platelet Count 94 10^3/cmm (157-399); White Blood Count 5.63 10^3/uL (3.29-11.43)
[2023-11-14] MEDS: venlafaxine ER (24HR) 75 mg Capsule PO (05:33)
[2023-11-14] MEDS: levothyroxine 25 mcg Tablet PO (05:33)
[2023-11-14 06:22] LABS: Blood Urea Nitrogen 36 mg/dL (6-20); Calcium 8.4 mg/dL (8.5-10.5); Carbon Dioxide 23 mmol/L (22-29); Chloride 95 mmol/L (98-107); Creatinine Clr Calc Pharmacy 16.9152; Glomerular Filtration Rate 8.9 mL/min (90-130); Glucose 71 mg/dL (65-115); Osmolality Calculated 287 mOsm/kg (285-295); Sodium 135 mmol/L (136-145)
[2023-11-14] MEDS: budesonide 0.5 mg/2 mL Neb INHALATION (07:44)
--- NOTE | 2023-11-14 09:02 | P.PN_ITS ---
Subjective 2 Subjective: on 3L NC Medications: Reviewed: Yes Vitals/I&O/Wt Last Vital Signs Temp 98.6 F 11/14/23 07:30 Pulse 94 11/14/23 08:30 Resp 22 H 11/14/23 08:30 BP 103/61 11/14/23 08:30 Pulse Ox 91 11/14/23 08:30 O2 Del Method Nasal Cannula 11/14/23 08:30 O2 Flow Rate 3 11/14/23 08:30 FiO2 40 11/14/23 00:29 11/13/23 11/14/23 11/14/23 22:59 06:59 14:59 Intake Total 750 / 1196.089 50 / 1246.089 222 / 222 Output Total 0 / 0 Balance 750 / 1196.089 50 / 1246.089 222 / 222 Weight last 48 hrs Weight 111.13 kg Weight 112 kg Weight 113 kg Physical Exam 2 Narrative: awake , on 3L NC NO DISTRESS S1S2 RRR per report Lungs clear per report Urinary Catheter Management: Melgar: Cath Placed During This Visit: yes, but has since been removed by the nurse Reason for Continuing Indwelling Catheter: Decision to DC Catheter Urinary Catheter Date of Insertion: 11/05/23 Urinary Catheter Time of Insertion: 07:48 Date Urinary Catheter Removed: 11/06/23 Time Urinary Catheter Discontinued: 12:22 Data 11/14/23 04:00 11/14/23 05:55 A&P Assessment and plan (1) End-stage renal disease on hemodialysis: 1. End-stage renal disease: On TTS schedule as outpatient, was hyperkalemic and status post cardiac arrest. hd today -Assess daily for HD needs 2. Status post V-fib, ROSC achieved currently on amiodarone and on pressors 3. Chest pain, workup in process, s/p LHC 4. Acute on chronic respiratory failure, extubated 5. Hyperkalemia: improved 6. sepsis 7. Anemia: Hemoglobin 11.2 , monitor, ALBERTO with HD. Patient evaluated using audiovisual cart. Time spent 20 minutes Attestations 2 Medical Necessity Statement*: per medicine Coding Level of Care Code Acute Code for Chg Fwd Diagnoses End-stage renal disease on hemodialysis N18.6; Z99.2
[2023-11-14] MEDS: atorvastatin 40 mg Tablet 80 MG PO (09:35)
[2023-11-14] MEDS: pantoprazole 40 mg SDV IVP (09:35)
[2023-11-14] MEDS: amiodarone 200 mg Tablet 400 MG PO (09:35)
[2023-11-14] MEDS: gabapentin 300 mg Capsule PO (09:36)
[2023-11-14] MEDS: apixaban 5 mg Tablet PO ×2 (09:36→21:13)
[2023-11-14] MEDS: clopidogrel 75 mg Tablet PO (09:36)
--- NOTE | 2023-11-14 10:50 | PC.SOCIAL ---
IMM Update pg 2 of IMM updated and reviewed w/ patient. Copy provided and copy dated, initialed and placed in chart.
--- NOTE | 2023-11-14 11:34 | P.PN_ITS ---
Subjective 2 Subjective: Patient has constant chest pain from chest compressions received. Appears comfortable Vitals/I&O/Wt Last Vital Signs Temp 98.6 F 11/14/23 07:30 Pulse 90 11/14/23 11:23 Resp 29 H 11/14/23 10:00 BP 104/71 11/14/23 10:00 Pulse Ox 95 11/14/23 10:00 O2 Del Method Nasal Cannula 11/14/23 10:00 O2 Flow Rate 3 11/14/23 08:30 FiO2 40 11/14/23 00:29 11/13/23 11/14/23 11/14/23 22:59 06:59 14:59 Intake Total 750 / 1196.089 50 / 1246.089 222 / 222 Output Total 0 / 0 Balance 750 / 1196.089 50 / 1246.089 222 / 222 Weight last 48 hrs Weight 245 lb Weight 246 lb 14.684 oz Weight 249 lb 1.957 oz Physical Exam 2 Narrative: GENERAL: Patient is alert and oriented NECK: No jugular vein distension. [] HEENT: No cyanosis. No icterus. No pallor. [] HEART: Regular S1 and S2.Has grade 3/6 systolic murmur LUNGS: Diminished air entry CENTRAL NERVOUS SYSTEM: Grossly nonfocal. [] EXTREMITIES: Left BKA. Urinary Catheter Management: Melgar: Cath Placed During This Visit: yes, but has since been removed by the nurse Reason for Continuing Indwelling Catheter: Decision to DC Catheter Urinary Catheter Date of Insertion: 11/05/23 Urinary Catheter Time of Insertion: 07:48 Date Urinary Catheter Removed: 11/06/23 Time Urinary Catheter Discontinued: 12:22 Data 11/15/23 03:22 11/15/23 03:22 A&P Assessment and plan (1) Ventricular fibrillation: (2) Atherosclerotic heart disease of [place] coronary artery with other forms of angina pectoris: (3) Type 2 diabetes mellitus: Qualifiers: Diabetes mellitus terminal operator insulin use: without terminal operator use Diabetes mellitus complication status: with kidney complications Diabetes mellitus complication detail: with chronic kidney disease Chronic kidney disease stage: on chronic dialysis Qualified Code(s): E11.22 - Type 2 diabetes mellitus with diabetic chronic kidney disease; N18.6 - End stage renal disease; Z99.2 - Dependence on renal dialysis (4) End-stage renal disease on hemodialysis: (5) Anemia: Qualifiers: Anemia type: iron deficiency Iron deficiency anemia type: other iron deficiency Qualified Code(s): D50.8 - Other iron deficiency anemias (6) Acute and chronic respiratory failure with hypoxia: (7) Atrial fibrillation: Qualifiers: Atrial fibrillation type: unspecified Qualified Code(s): I48.91 - Unspecified atrial fibrillation (8) Ascites: Qualifiers: Ascites type: other type Qualified Code(s): R18.8 - Other ascites (9) Hypotension: Qualifiers: Hypotension type: idiopathic hypotension Qualified Code(s): I95.0 - Idiopathic hypotension (10) Aortic stenosis: Plan Patient is overall stable. Atypical chest pain from chest compressions. Will continue dual antiplatelet therapy. Stable to be transferred out of hospital. Thank you for involving us with care of this patient. We will continue to follow. Please call with questions. Attestations 2 Medical Necessity Statement*: Care expected to cross 2 midnights. Coding Level of Care Code Acute Code for [facility] Diagnoses Ventricular fibrillation I49.01 Atherosclerotic heart disease of [place] coronary artery with other forms of angina pectoris I25.118 Type 2 diabetes mellitus with chronic kidney disease on chronic dialysis, without long-term current use of insulin E11.22; N18.6; Z99.2 Diabetes mellitus terminal operator insulin use: without nursing home use Diabetes mellitus complication status: with kidney complications Diabetes mellitus complication detail: with chronic kidney disease Chronic kidney disease stage: on chronic dialysis End-stage renal disease on hemodialysis N18.6; Z99.2 Other iron deficiency anemia D50.8 Anemia type: iron deficiency Iron deficiency anemia type: other iron deficiency Acute and chronic respiratory failure with hypoxia J96.21 Atrial fibrillation, unspecified type I48.91 Atrial fibrillation type: unspecified Other ascites R18.8 Ascites type: other type Idiopathic hypotension I95.0 Hypotension type: idiopathic hypotension Aortic stenosis I35.0
--- NOTE | 2023-11-14 14:09 | P.PN_ITS ---
Subjective 2 Subjective: Patient was seen this morning he is much more alert and awake, following all commands, no coughing, no choking episodes, no fevers, no chills, we discussed him needing rehab and a rehab facility he is agreeable Vitals/I&O/Wt Last Vital Signs Temp 98.8 F 11/14/23 14:00 Pulse 96 11/14/23 14:00 Resp 24 H 11/14/23 14:00 BP 123/86 11/14/23 14:00 Pulse Ox 96 11/14/23 14:00 O2 Del Method Nasal Cannula 11/14/23 14:00 O2 Flow Rate 3 11/14/23 08:30 FiO2 40 11/14/23 00:29 11/13/23 11/14/23 11/14/23 22:59 06:59 14:59 Intake Total 750 / 1196.089 50 / 1246.089 444 / 444 Output Total 0 / 0 Balance 750 / 1196.089 50 / 1246.089 444 / 444 Weight last 48 hrs Weight 111.13 kg Weight 112 kg Physical Exam 2 Const: COMMON NORMALS: no acute distress and patient oriented x3 Resp: COMMON NORMALS: normal respiratory effort, No retractions, No use of accessory muscles and clear to auscultation bilaterally AUSCULTATION: clear to auscultation bilaterally Cardio: COMMON NORMALS: regular rate, regular rhythm, S1 normal heart sound present and S2 normal heart sound present RATE: regular rate RHYTHM: r egular rhythm HEART SOUNDS: S1 normal heart sound present and S2 normal heart sound present GI: COMMON NORMALS: Normal to inspection, nondistended, normoactive bowel sounds present and non-tender Extremity: COMMON NORMALS: no pedal edema Neuro: COMMON NORMALS: patient oriented x3 Psych: COMMON NORMALS: mental status grossly normal Urinary Catheter Management: Melgar: Cath Placed During This Visit: yes, but has since been removed by the nurse Reason for Continuing Indwelling Catheter: Decision to DC Catheter Urinary Catheter Date of Insertion: 11/05/23 Urinary Catheter Time of Insertion: 07:48 Date Urinary Catheter Removed: 11/06/23 Time Urinary Catheter Discontinued: 12:22 Data 11/14/23 04:00 11/14/23 05:55 A&P Assessment and plan (1) Chest pain: Original complaint of the patient was chest discomfort Troponin is elevated but trend is not concerning Must still be concerned about coronary disease with recent stenting, October 16 with drug-eluting stent as well as angioplasty. See report for details. Initially treated with heparin drip. Now stopped Echocardiogram, limited, demonstrates EF around 50%. This is slightly improved from previous Angiogram performed 11/07, patient recieved 2 angioplasties. It was not thought that these lesions were likely to cause his VFIb arrest but could have contributed to chest pain. Cardiology consult appreciated Continue Plavix Continue aspirin Continue statin Qualifiers: Chest pain type: unspecified Qualified Code(s): R07.9 - Chest pain, unspecified (2) Acute respiratory failure: Postcode extubated on bipap, weak cough, increased risk of aspiration, keep npo paitent is supposed to use bipap at night, according to daughter is noncompliant, continue bipap prn during alessandro, and scheduled during the night Lower lobe consolidation consistent with pneumonia seen on CT Continue IV antibiotics. Currently on Zosyn, Zyvox Paracentesis 5 L off Received dialysis yesterday 2 L off, today does have crackles on exam concerns for fluid overload will receive dialysis today ? Concerns for high risk of aspiration, keep n.p.o., can add aspiration precautions ?Continue aggressive pulmonary toilet, aspiration precautions, up out of bed ? (3) Cardiac arrest: Status post V-fib cardiac arrest ROSC achieved Changed to amiodarone p.o. Rhythm currently sinus. Continue higher dose amiodarone to 400 twice daily for 1 week total from initiation. Sunday of next week should go down to 200mg BID (4) Ventricular fibrillation: Potassium has been corrected Nephrology consult appreciated Underwent ultrafiltration on November 04 and dialysis November 05 and November 06 (5) Atrial fibrillation: Placed on amiodarone, continue 400 mg twice daily as above I have discontinued Cardizem that was initiated in the emergency department. Currently in sinus rhythm Currently off full dose anticoagulation Qualifiers: Atrial fibrillation type: unspecified Qualified Code(s): I48.91 - Unspecified atrial fibrillation (6) Hypotension: Patient with severe hypotension This most likely is secondary to cardiac arrest as well as sepsis, now liekly secondary to dialysis, and hypoalbuminemia Currently on norepinephrine which has been weaned to 2. Continue patient's midodrine. Greatly improved Qualifiers: Hypotension type: idiopathic hypotension Qualified Code(s): I95.0 - Idiopathic hypotension (7) Sepsis: Resolved See findings under hypotension IV antibiotics consisting of linezolid, Zosyn Blood cultures negative to date Fluid from paracentesis obtained Culture negative to date CT chest abdomen pelvis done yesterday demonstrates bilateral lower lobe pneumonia. Sputum culture shows Cedecea, sensitive to Zosyn. Awaiting MRSA PCR Was not candidate for any fluid bolus on admission secondary to fluid overload. X-ray right lower extremity demonstrated no obvious bone destruction CT chest and abdomen today showed pneumonia but no other sites of infection. (8) Type 2 diabetes mellitus: It does not appear like he is on any insulin Monitor blood sugars No sliding scale for now as concern of potential for hypoglycemia Qualifiers: Diabetes mellitus senior living insulin use: without long term care pharmacist use Diabetes mellitus complication status: with kidney complications Diabetes mellitus complication detail: with chronic kidney disease Chronic kidney disease stage: on chronic dialysis Qualified Code(s): E11.22 - Type 2 diabetes mellitus with diabetic chronic kidney disease; N18.6 - End stage renal disease; Z99.2 - Dependence on renal dialysis (9) Abnormal TSH: TSH abnormal, elevated. Continue on Synthroid low-dose, 25 mcg secondary to arrhythmia Plan End-stage renal disease on hemodialysis with hyperkalemia. . Nephrology consult appreciated. He was ultrafiltrated on November 04. Dialysis was performed 13. DIALYSIS today Multiple other medical problems as outlined in past medical history Full code Eliquis DVT prophylaxis Does not produce significant urine chronically. Melgar was discontinued Probable extubation tomorrow. Low dose feeds initiated. Plan for today continue aggressive pulmonary toilet, up out of bed, continue Zosyn stop Zyvox, advance diet as tolerated, amiodarone p.o., Eliquis, PT OT, Attestations 2 Medical Necessity Statement*: Patient requires hospitalization respiratory failure, postcode, V-fib, A-fib, renal failure, pneumonia Diagnoses Chest pain R07.9 Chest pain type: unspecified Acute respiratory failure J96.00 Cardiac arrest I46.9 Ventricular fibrillation I49.01 Atrial fibrillation, unspecified type I48.91 Atrial fibrillation type: unspecified Idiopathic hypotension I95.0 Hypotension type: idiopathic hypotension Sepsis A41.9 Type 2 diabetes mellitus with chronic kidney disease on chronic dialysis, without long-term current use of insulin E11.22; N18.6; Z99.2 Diabetes mellitus long term care pharmacist insulin use: without senior living use Diabetes mellitus complication status: with kidney complications Diabetes mellitus complication detail: with chronic kidney disease Chronic kidney disease stage: on chronic dialysis Abnormal TSH R79.89
--- NOTE | 2023-11-14 14:18 | PC.NURSE ---
Report called to medical surgical floor, Romi SCHERER. Patient updated, patients also updated, patient will move to room 275.
--- NOTE | 2023-11-14 14:49 | PC.NURSE ---
Patient transferred to room 275, all belongings with patient including glasses and cellphone. [place] nurse GILMER Llanos at bedside. Patient on 3L NC, no questions or requests at the time of transfer. Patient chart left with staff at supervisor front.
[2023-11-14] MEDS: albumin 12.5 GM/50 ML VIAL IV ×2 (17:45→18:37)
[2023-11-14] MEDS: trazodone 50 mg Tablet PO (21:13)
--- NOTE | 2023-11-14 23:08 | PC.HD ---
Hypotension during HD required albumin administration and precluded reaching fluid removal goal, Dr Flaquita carranza.
[2023-11-15] VITALS (18 sets, daily range): BP systolic 101–125; BP diastolic 49–76; PULSE 88–94; RESP 16–18; TEMP 36.4–37.1; O2SAT 9–96
[2023-11-15] MEDS: ipratropium-albuterol 3 mL Neb INHALATION ×6 (00:30→20:27)
[2023-11-15 03:46] LABS: Basophils # 0.1 10^3/uL (0.0-0.1); Eosinophils # 0.6 10^3/uL (0.0-0.8); Eosinophils % 12.1 %; Hematocrit 33.5 % (37-53); Lymphocytes # 0.5 10^3/uL (0.8-4.8); Lymphocytes % 10.7 %; Mean Corpuscular HGB Conc 30.1 g/dL (30-55); Mean Corpuscular Hemoglobin 27.2 pg (27-33); Mean Corpuscular Volume 90.1 fl (82-101); Mean Platelet Volume 11.7 fL (7.4-10.4); Monocytes # 0.4 10^3/uL (0.2-0.9); Monocytes % 8.2 %; Neutrophils % 67.6 %; Nucleated Red Blood Cells % 0 %; Platelet Count 106 10^3/cmm (157-399); Red Blood Count 3.72 10^6/uL (3.85-5.65); Red Cell Distribution Width 16.7 % (12.1-15.1); White Blood Count 5.03 10^3/uL (3.29-11.43)
[2023-11-15 04:08] LABS: Anion Gap 18.7 (5-19); Blood Urea Nitrogen 28 mg/dL (6-20); Calcium 8.4 mg/dL (8.5-10.5); Carbon Dioxide 26 mmol/L (22-29); Chloride 97 mmol/L (98-107); Creatinine Clr Calc Pharmacy 18.9114; Glomerular Filtration Rate 10.1 mL/min (90-130); Glucose 90 mg/dL (65-115); Osmolality Calculated 291 mOsm/kg (285-295); Potassium 3.7 mmol/L (3.5-5.1); Sodium 138 mmol/L (136-145)
--- NOTE | 2023-11-15 06:01 | P.PN_ITS ---
Vitals/I&O/Wt Last Vital Signs Temp 98.7 F 11/15/23 04:00 Pulse 92 11/15/23 04:11 Resp 18 11/15/23 04:11 BP 115/73 11/15/23 04:00 Pulse Ox 9 L 11/15/23 04:11 O2 Del Method Nasal Cannula 11/15/23 04:11 O2 Flow Rate 4 11/15/23 04:11 FiO2 40 11/14/23 00:29 11/14/23 11/14/23 11/15/23 14:59 22:59 06:59 Intake Total 444 / 444 30 / 474 800 / 1274 Output Total 2234 / 2234 Balance 444 / 444 30 / 474 -1434 / -960 Weight last 48 hrs Weight 238 lb 4.8 oz Weight 244 lb 11.41 oz Weight 245 lb Weight 246 lb 14.684 oz Physical Exam 2 Urinary Catheter Management: Melgar: Cath Placed During This Visit: yes, but has since been removed by the nurse Reason for Continuing Indwelling Catheter: Decision to DC Catheter Urinary Catheter Date of Insertion: 11/05/23 Urinary Catheter Time of Insertion: 07:48 Date Urinary Catheter Removed: 11/06/23 Time Urinary Catheter Discontinued: 12:22 Data 11/15/23 03:22 11/15/23 03:22 Coding Level of Care Code Acute Code for Chg [place]
[2023-11-15] MEDS: venlafaxine ER (24HR) 75 mg Capsule PO (06:36)
[2023-11-15] MEDS: levothyroxine 25 mcg Tablet PO (06:36)
[2023-11-15] MEDS: morphine 4 mg/mL SDV 1 mL 0.5 MG IVP ×2 (07:35→11:41)
[2023-11-15] MEDS: budesonide 0.5 mg/2 mL Neb INHALATION ×2 (08:15→20:27)
--- NOTE | 2023-11-15 08:17 | P.PN_ITS ---
Subjective 2 Subjective: s/p hd yesterday Medications: Reviewed: Yes Vitals/I&O/Wt Last Vital Signs Temp 98.0 F 11/15/23 08:00 Pulse 90 11/15/23 08:00 Resp 18 11/15/23 08:00 BP 114/68 11/15/23 08:00 Pulse Ox 91 11/15/23 08:00 O2 Del Method Nasal Cannula 11/15/23 08:00 O2 Flow Rate 4 11/15/23 04:11 FiO2 40 11/14/23 00:29 11/14/23 11/15/23 11/15/23 22:59 06:59 14:59 Intake Total 800 / 1274 50 / 50 Output Total 2234 / 2234 Balance -1434 / -960 50 / 50 Weight last 48 hrs Weight 108.091 kg Weight 111 kg Weight 111.13 kg Physical Exam 2 Narrative: awake , on 3L NC NO DISTRESS S1S2 RRR per report Lungs clear per report Urinary Catheter Management: Melgar: Cath Placed During This Visit: yes, but has since been removed by the nurse Reason for Continuing Indwelling Catheter: Decision to DC Catheter Urinary Catheter Date of Insertion: 11/05/23 Urinary Catheter Time of Insertion: 07:48 Date Urinary Catheter Removed: 11/06/23 Time Urinary Catheter Discontinued: 12:22 Data 11/15/23 03:22 11/15/23 03:22 A&P Assessment and plan (1) End-stage renal disease on hemodialysis: 1. End-stage renal disease: On TTS schedule as outpatient, was hyperkalemic and status post cardiac arrest. -Assess daily for HD needs - next HD tomorrow 2. Status post V-fib, ROSC achieved currently on amiodarone and on pressors 3. Chest pain, workup in process, s/p LHC 4. Acute on chronic respiratory failure, extubated 5. Hyperkalemia: improved 6. sepsis 7. Anemia: Hemoglobin 11.2 , monitor, ALBERTO with HD. Patient evaluated using audiovisual cart. Time spent 20 minutes Plan per mediicne Attestations 2 Medical Necessity Statement*: per medicne Coding Level of Care Code Acute Code for Chg Fwd Diagnoses End-stage renal disease on hemodialysis N18.6; Z99.2
[2023-11-15] MEDS: clopidogrel 75 mg Tablet PO (08:55)
[2023-11-15] MEDS: atorvastatin 40 mg Tablet 80 MG PO (08:57)
[2023-11-15] MEDS: apixaban 5 mg Tablet PO ×2 (08:58→20:16)
[2023-11-15] MEDS: pantoprazole 40 mg SDV IVP (08:58)
[2023-11-15] MEDS: amiodarone 200 mg Tablet 400 MG PO ×2 (08:58→17:53)
--- NOTE | 2023-11-15 15:03 | P.PN_ITS ---
Subjective 2 Subjective: Patient was seen this morning, nursing staff at bedside, denies any fevers, chills, no cough, does report chest discomfort after receiving CPR, we discussed plans on likely discharging tomorrow, after dialysis, with resumption of his outpatient dialysis schedule on Sunday Vitals/I&O/Wt Last Vital Signs Temp 98.6 F 11/15/23 11:24 Pulse 94 11/15/23 11:27 Resp 16 11/15/23 11:41 BP 101/49 11/15/23 11:24 Pulse Ox 90 11/15/23 11:27 O2 Del Method Nasal Cannula 11/15/23 11:27 O2 Flow Rate 2 11/15/23 11:27 FiO2 40 11/14/23 00:29 11/15/23 11/15/23 11/15/23 06:59 14:59 22:59 Intake Total 800 / 1274 370 / 370 Output Total 2234 / 2234 Balance -1434 / -960 370 / 370 Weight last 48 hrs Weight 108.091 kg Weight 111 kg Weight 111.13 kg Physical Exam 2 Const: COMMON NORMALS: no acute distress and patient oriented x3 Resp: COMMON NORMALS: normal respiratory effort, No retractions, No use of accessory muscles and clear to auscultation bilaterally AUSCULTATION: clear to auscultation bilaterally Cardio: COMMON NORMALS: regular rate, regular rhythm, S1 normal heart sound present and S2 normal heart sound present RATE: regular rate RHYTHM: r egular rhythm HEART SOUNDS: S1 normal heart sound present and S2 normal heart sound present GI: COMMON NORMALS: Normal to inspection, nondistended, normoactive bowel sounds present, Soft to palpation and non-tender PALPATION: Yes Soft to palpation Extremity: COMMON NORMALS: no pedal edema Neuro: COMMON NORMALS: patient oriented x3 Psych: COMMON NORMALS: mental status grossly normal Urinary Catheter Management: Melgar: Cath Placed During This Visit: yes, but has since been removed by the nurse Reason for Continuing Indwelling Catheter: Decision to DC Catheter Urinary Catheter Date of Insertion: 11/05/23 Urinary Catheter Time of Insertion: 07:48 Date Urinary Catheter Removed: 11/06/23 Time Urinary Catheter Discontinued: 12:22 Data 11/15/23 03:22 11/15/23 03:22 A&P Assessment and plan (1) Chest pain: Original complaint of the patient was chest discomfort Troponin is elevated but trend is not concerning Must still be concerned about coronary disease with recent stenting, October 16 with drug-eluting stent as well as angioplasty. See report for details. Initially treated with heparin drip. Now stopped Echocardiogram, limited, demonstrates EF around 50%. This is slightly improved from previous Angiogram performed 11/07, patient recieved 2 angioplasties. It was not thought that these lesions were likely to cause his VFIb arrest but could have contributed to chest pain. Cardiology consult appreciated Continue Plavix Continue eliquis Continue statin Qualifiers: Chest pain type: unspecified Qualified Code(s): R07.9 - Chest pain, unspecified (2) Acute respiratory failure: Postcode extubated on bipap, weak cough, increased risk of aspiration, keep npo paitent is supposed to use bipap at night, according to daughter is noncompliant, continue bipap prn during alessandro, and scheduled during the night Lower lobe consolidation consistent with pneumonia seen on CT Continue IV antibiotics. Currently off Zosyn, Zyvox Paracentesis 5 L off Received dialysis yesterday 2 L off, today does have crackles on exam concerns for fluid overload will receive dialysis today ? diet advanced ?Continue aggressive pulmonary toilet, aspiration precautions, up out of bed ? (3) Cardiac arrest: Status post V-fib cardiac arrest ROSC achieved Changed to amiodarone p.o. Rhythm currently sinus. Continue higher dose amiodarone to 400 twice daily for 1 week total from initiation. Sunday of next week should go down to 200mg BID (4) Ventricular fibrillation: Potassium has been corrected Nephrology consult appreciated Underwent ultrafiltration on November 04 and dialysis November 05 and November 06 (5) Atrial fibrillation: Placed on amiodarone, continue 400 mg twice daily as above I have discontinued Cardizem that was initiated in the emergency department. Currently in sinus rhythm Currently off full dose anticoagulation Qualifiers: Atrial fibrillation type: unspecified Qualified Code(s): I48.91 - Unspecified atrial fibrillation (6) Hypotension: Patient with severe hypotension This most likely is secondary to cardiac arrest as well as sepsis, now liekly secondary to dialysis, and hypoalbuminemia Currently on norepinephrine which has been weaned to 2. Continue patient's midodrine. Greatly improved Qualifiers: Hypotension type: idiopathic hypotension Qualified Code(s): I95.0 - Idiopathic hypotension (7) Sepsis: Resolved See findings under hypotension IV antibiotics consisting of linezolid, Zosyn Blood cultures negative to date Fluid from paracentesis obtained Culture negative to date CT chest abdomen pelvis done yesterday demonstrates bilateral lower lobe pneumonia. Sputum culture shows C[place], sensitive to Zosyn. Awaiting MRSA PCR Was not candidate for any fluid bolus on admission secondary to fluid overload. X-ray right lower extremity demonstrated no obvious bone destruction CT chest and abdomen today showed pneumonia but no other sites of infection. 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 Continue on Synthroid low-dose, 25 mcg secondary to arrhythmia Plan End-stage renal disease on hemodialysis with hyperkalemia. . Nephrology consult appreciated. He was ultrafiltrated on November 04. Dialysis was performed 13. DIALYSIS today Multiple other medical problems as outlined in past medical history Full code Eliquis DVT prophylaxis Does not produce significant urine chronically. Melgar was discontinued Probable extubation tomorrow. Low dose feeds initiated. Plan for today continue aggressive pulmonary toilet, up out of bed, plan on discharge 24 hours, will receive dialysis tomorrow morning Attestations 2 Medical Necessity Statement*: Patient requires hospitalization, for fluid overload end-stage renal disease, pneumonia status posttreatment, A-fib, cardiac arrest Diagnoses Chest pain R07.9 Chest pain type: unspecified Acute respiratory failure J96.00 Cardiac arrest I46.9 Ventricular fibrillation I49.01 Atrial fibrillation, unspecified type I48.91 Atrial fibrillation type: unspecified Idiopathic hypotension I95.0 Hypotension type: idiopathic hypotension Sepsis A41.9 Type 2 diabetes mellitus with chronic kidney disease on chronic dialysis, without long-term current use of insulin E11.22; N18.6; Z99.2 Diabetes mellitus fci insulin use: without fci use Diabetes mellitus complication status: with kidney complications Diabetes mellitus complication detail: with chronic kidney disease Chronic kidney disease stage: on chronic dialysis Abnormal TSH R79.89
[2023-11-15] MEDS: HYDROcodone-acetaminophen 5-325 mg Tablet 1 TAB PO (17:53)
[2023-11-15] MEDS: trazodone 50 mg Tablet PO (20:16)
[2023-11-16] VITALS: BP 110/72; PULSE 85; RESP 18; TEMP 36.7; O2SAT 98
[2023-11-16] MEDS: HYDROcodone-acetaminophen 5-325 mg Tablet 1 TAB PO ×2 (01:56→11:26)
[2023-11-16 04:00] VITALS: BP 109/75; PULSE 83; RESP 18; TEMP 37; O2SAT 95
[2023-11-16] MEDS: gabapentin 300 mg Capsule PO (05:11)
[2023-11-16] MEDS: venlafaxine ER (24HR) 75 mg Capsule PO (05:11)
[2023-11-16] MEDS: levothyroxine 25 mcg Tablet PO (05:11)
[2023-11-16 05:17] LABS: Basophils # 0.1 10^3/uL (0.0-0.1); Basophils % 1.4 %; Eosinophils # 0.6 10^3/uL (0.0-0.8); Eosinophils % 11.8 %; Hematocrit 32.8 % (37-53); Lymphocytes # 0.6 10^3/uL (0.8-4.8); Lymphocytes % 11.8 %; Mean Corpuscular HGB Conc 29.9 g/dL (30-55); Mean Corpuscular Hemoglobin 27.5 pg (27-33); Mean Corpuscular Volume 92.1 fl (82-101); Mean Platelet Volume 9.8 fL (7.4-10.4); Monocytes # 0.5 10^3/uL (0.2-0.9); Monocytes % 9.4 %; Neutrophils # 3.19 10^3/uL (1.8-7.7); Nucleated Red Blood Cells % 0 %; Platelet Count 108 10^3/cmm (157-399); Red Blood Count 3.56 10^6/uL (3.85-5.65); White Blood Count 4.91 10^3/uL (3.29-11.43)
[2023-11-16 05:27] VITALS: PULSE 84
[2023-11-16 06:57] LABS: Anion Gap 19.1 (5-19); Blood Urea Nitrogen 37 mg/dL (6-20); Calcium 8.5 mg/dL (8.5-10.5); Carbon Dioxide 26 mmol/L (22-29); Chloride 99 mmol/L (98-107); Creatinine Clr Calc Pharmacy 16.0558; Glomerular Filtration Rate 8.4 mL/min (90-130); Glucose 78 mg/dL (65-115); Osmolality Calculated 298 mOsm/kg (285-295); Potassium 4.1 mmol/L (3.5-5.1); Sodium 140 mmol/L (136-145)
[2023-11-16 07:46] VITALS: BP 108/73; PULSE 83; RESP 16; TEMP 36.5; O2SAT 95
[2023-11-16 08:00] VITALS: PULSE 79; RESP 18; O2SAT 100
[2023-11-16] MEDS: budesonide 0.5 mg/2 mL Neb INHALATION (08:31)
[2023-11-16] MEDS: ipratropium-albuterol 3 mL Neb INHALATION (08:31)
[2023-11-16 08:46] VITALS: PULSE 85
[2023-11-16] MEDS: apixaban 5 mg Tablet PO (09:29)
[2023-11-16] MEDS: amiodarone 200 mg Tablet 400 MG PO (09:29)
[2023-11-16] MEDS: pantoprazole 40 mg SDV IVP (09:29)
[2023-11-16] MEDS: atorvastatin 40 mg Tablet 80 MG PO (09:29)
[2023-11-16] MEDS: clopidogrel 75 mg Tablet PO (09:29)
[2023-11-16 11:06] LABS: SARS Covid-2 Antigen negative (Negative)
--- NOTE | 2023-11-16 11:21 | PM.DCS ---
Discharge Providers Date of Admission: 11/05/23 06:02 Date of Discharge: November 16, 2023 Attending Provider at Admission: Darren Vela MD Attending Provider at Discharge: Julio C Bal MD Primary Care Provider: Sulma Wetzel MD Diagnoses at Discharge Discharge Diagnosis (1) Chest pain: Status: Acute Qualifiers: Chest pain type: unspecified Qualified Code(s): R07.9 - Chest pain, unspecified (2) Acute respiratory failure: Status: Acute (3) Cardiac arrest: Status: Acute (4) Ventricular fibrillation: Status: Acute (5) Atrial fibrillation: Status: Acute Qualifiers: Atrial fibrillation type: unspecified Qualified Code(s): I48.91 - Unspecified atrial fibrillation (6) Hypotension: Status: Acute Qualifiers: Hypotension type: idiopathic hypotension Qualified Code(s): I95.0 - Idiopathic hypotension (7) Sepsis: Status: Acute (8) Type 2 diabetes mellitus: Status: Acute Qualifiers: Diabetes mellitus care home insulin use: without care home use Diabetes mellitus complication status: with kidney complications Diabetes mellitus complication detail: with chronic kidney disease Chronic kidney disease stage: on chronic dialysis Qualified Code(s): E11.22 - Type 2 diabetes mellitus with diabetic chronic kidney disease; N18.6 - End stage renal disease; Z99.2 - Dependence on renal dialysis (9) Abnormal TSH: Status: Acute Reason for Visit Reason for Visit: CP Hospital Course Hospital Course Akil Velasco is a 53 year old male with history of significant vascular disease with recent coronary stenting presenting to the emergency department from home with chest pain. Fever was also noted. 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 He also receives paracentesis for significant ascites, and last paracentesis October 28. When I went to examine the patient he was already intubated. Sequence of events, as related to me was he came into the emergency department with chest discomfort. He was short of breath. He had been getting dialysis regularly, typically on Sunday. He had not been reporting any abdominal pain. He had not had any nausea or vomiting. This history was obtained from the emergency department physician, and his . I called his , she related he did not know he had a fever at home. She reports he felt tired yesterday, and not quite right. This morning he started complaining of chest discomfort around 1 or 2 AM. He had indicated he thought it was the orange juice he had drank. Code note is pending but per the emergency department physician verbally, approximately 3 rounds of CPR were given. He received usual protocol, with the addition of amiodarone drip for ventricular fibrillation. Patient had a prolonged hospitalization, please look at my last progress note for further detail Patient was admitted to [facility] for cardiac arrest status post V-fib cardiac arrest, ROSC achieved, intubated, placed on mechanical ventilation, admitted for acute respiratory failure, thought to be secondary to pneumonia, fluid overload, sepsis, with shock, with also atrial fibrillation, with evidence of fluid overload, patient underwent coronary angiography once medically stable underwent 2 angioplasties, manage on anticoagulant therapy antiplatelet therapy overall clinically improved, weaned off pressors, received inpatient dialysis, heart rate and rhythms remained stable and on amiodarone, septic shock resolved antibiotic therapy was de-escalated, eventually weaned off sedation, following commands, extubated, overall clinically improved, moved out of ICU to medical floors. Patient will be discharged on Plavix, and Eliquis, amiodarone, tapering dose, completed antibiotic therapy as inpatient, discharged to [facility] with outpatient dialysis starting tomorrow, needs to use BiPAP scheduled during the night as needed during the day, on nasal cannula on discharge alert oriented x 4 following all commands, still having some chest discomfort anteriorly likely secondary to CPR, discharged on oxycodone to be used sparingly for pain, follow-up with cardiology as outpatient did also receive a paracentesis, 5 L off received inpatient dialysis, for fluid overload Physical Exam Const: COMMON NORMALS: no acute distress and patient oriented x3 Resp: COMMON NORMALS: normal respiratory effort, No retractions, No use of accessory muscles and clear to auscultation bilaterally AUSCULTATION: clear to auscultation bilaterally Cardio: COMMON NORMALS: regular rate, regular rhythm, S1 normal heart sound present and S2 normal heart sound present RATE: regular rate RHYTHM: regular rhythm HEART SOUNDS: S1 normal heart sound present and S2 normal heart sound present GI: COMMON NORMALS: Normal to inspection, nondistended, normoactive bowel sounds present and non-tender Extremity: COMMON NORMALS: no pedal edema Neuro: COMMON NORMALS: patient oriented x3 Psych: COMMON NORMALS: mental status grossly normal Urinary Catheter Management: Melgar: Cath Placed During This Visit: yes, but has since been removed by the nurse Reason for Continuing Indwelling Catheter: Decision to DC Catheter Urinary Catheter Date of Insertion: 11/05/23 Urinary Catheter Time of Insertion: 07:48 Date Urinary Catheter Removed: 11/06/23 Time Urinary Catheter Discontinued: 12:22 Discharge Data Studies Completed and Pending Completed Studies During Hospitalization Category Date Time Status CT chest abdomen pelvis [[place] [id number] Cat Scan 11/07/23 06:46 Completed ] Routine GATE GUARD request for service Routine Exams 11/08/23 06:41 Completed CXRP [XR chest 1V portable [id number]] Routine Exams 11/07/23 14:25 Completed XR chest 1V portable [id number] Routine Exams 11/06/23 07:00 Completed XR chest 1V portable [id number] Routine Exams 11/07/23 07:00 Completed XR chest 1V portable [id number] Routine Exams 11/08/23 07:51 Completed XR chest 1V portable 40040 Routine Exams 11/09/23 07:27 Completed XR chest 1V portable [id number] Routine Exams 11/11/23 07:00 Completed XR chest 1V portable [id number] Routine Exams 11/12/23 07:00 Completed XR chest 1V portable 53366 Stat Exams 11/05/23 04:36 Completed XR chest 1V portable [id number] Stat Exams 11/05/23 06:31 Completed XR chest 1V portable [id number] Stat Exams 11/05/23 21:34 Completed XR chest 1V portable [id number] Stat Exams 11/11/23 09:03 Completed XR chest 1V portable [id number] Urgent Exams 11/05/23 09:15 Completed XR tibia fibula RT 2V 57570 Routine Exams 11/06/23 07:42 [place] [id number] Routine Ultrasound 11/06/23 07:42 Completed CV. echo limited [id number] Routine Ultrasound 11/05/23 09:28 Com[place] w [id number] Routine Ultrasound 11/09/23 12:00 Com[place] w [id number] Stat Ultrasound 11/05/23 09:16 Completed Radiology Impressions Tibia/Fibula X-Ray 11/06/23 07:42 IMPRESSION: 1. No acute fracture or dislocation. 2. Prominent vascular calcific disease. Chest/Abdomen/Pelvis CT 11/07/23 06:46 IMPRESSION: 1. Almost completely consolidated bilateral lower lobes, suggesting atelectasis. Superimposed aspiration or pneumonia cannot be excluded entirely. 2. Mild, right and tiny, left, low density, pleural effusions. 3. Mild cardiomegaly. Atherosclerosis and coronary artery disease. 4. Moderate soft tissue lesion at lateral aspects of bilateral lower hemithoraces. IMPRESSION: 1. Lobulated contour of liver, suggesting cirrhosis. Questionable, a few gallstones within gallbladder. Persistent, mild splenomegaly. 2. Lower limit of normal sized bilateral kidneys. S/P partial nephrectomy at mid-lower portion of right kidney. 3. Mild colonic diverticula. Mild-moderate umbilical hernia containing fat and mild, low density fluid. 4. Atherosclerosis. 5. Stable, several, < 1.4 cm in short axis, mildly enlarged, celiac and gastrohepatic and < 2.3 cm in short axis, non, mildly, and moderately enlarged, retrocaval, aortocaval, para-aortic, bilateral common iliac, iliac bifurcation, and internal and external iliac, and groin lymph nodes from 03/22/22, nonspecific in nature. 6. Severe, low density ascites. 7. Moderate soft tissue edema and inflammation at bilateral anterior and lateral abdominal and pelvic farias, flanks, and lateral hips and visualized thighs. Several calcifications scattered within fat at bilateral anterior and lateral abdominal farias, flanks, and lateral hips and visualized thighs, probably reflecting metastatic calcifications related to chronic renal failure or hypercalcemia. Other differential diagnosis include scleroderma or dermatomyositis. Chest X-Ray 11/12/23 07:00 IMPRESSION: Cardiomegaly with mild congestion. Small right pleural effusion Laboratory Results WBC 4.91 10^3/uL (3.29-11.43) 11/16/23 04:48 RBC 3.56 10^6/uL (3.85-5.65) L 11/16/23 04:48 Hgb 9.80 g/dL (11.27-16.99) L 11/16/23 04:48 Hct 32.8 % (37-53) L 11/16/23 04:48 MCV 92.1 fl (82-101) 11/16/23 04:48 MCH 27.5 pg (27-33) 11/16/23 04:48 MCHC 29.9 g/dL (30-55) L 11/16/23 04:48 RDW 17.0 % (12.1-15.1) H 11/16/23 04:48 Plt Count 108 10^3/cmm (157-399) L 11/16/23 04:48 MPV 9.8 fL (7.4-10.4) 11/16/23 04:48 Neut % (Auto) 65.0 % 11/16/23 04:48 Lymph % (Auto) 11.8 % 11/16/23 04:48 [place] % (Auto) 9.4 % 11/16/23 04:48 Eos % (Auto) 11.8 % 11/16/23 04:48 Baso % (Auto) 1.4 % 11/16/23 04:48 Neut # (Auto) 3.19 10^3/uL (1.8-7.7) 11/16/23 04:48 Lymph # (Auto) 0.6 10^3/uL (0.8-4.8) L 11/16/23 04:48 [place] # (Auto) 0.5 10^3/uL (0.2-0.9) 11/16/23 04:48 Eos # (Auto) 0.6 10^3/uL (0.0-0.8) 11/16/23 04:48 Baso # (Auto) 0.1 10^3/uL (0.0-0.1) 11/16/23 04:48 Nucleated RBC % (auto) 0 % 11/16/23 04:48 Nucleated RBCs # 0.0 /100WBC 11/16/23 04:48 Differential Comment Yes 11/05/23 Unknown ESR 83 mm/hr (0-10) H 11/05/23 04:26 PT 16.30 SECONDS (12.1-14.9) H 11/13/23 04:40 INR 1.27 (0.8-1.2) H 11/13/23 04:40 APTT 51.8 SECONDS (23.9-36.7) H 11/08/23 14:33 Specimen Type Arterial 11/11/23 05:17 Sample Site Radial, right 11/11/23 05:17 ABG pH 7.39 (7.35-7.45) 11/11/23 05:17 ABG pCO2 45.6 mmHg (35-45) H 11/11/23 05:17 ABG pO2 60.8 mmHg (80.0-100.0) L 11/11/23 05:17 ABG PO2/FiO2 Ratio 0 11/11/23 05:17 ABG HCO3 27.8 mmol/L (22-26) H 11/11/23 05:17 ABG O2 Saturation 94.5 11/05/23 10:16 ABG Base Excess 2.4 mmol/L (-2.0-2.0) H 11/11/23 05:17 Jesus Test Pos 11/11/23 05:17 A-a O2 Gradient Not Reportable 11/08/23 11:17 Hematocrit 34.8 % (42-52) L 11/11/23 05:17 Hgb O2 Saturation 62.0 % (95-100) L 11/08/23 11:17 Carboxyhemoglobin 1.5 %THgb (0.4-20.1) 11/08/23 11:17 Methemoglobin 0.9 % (0.4-1.5) 11/08/23 11:17 Total Hemoglobin 11.1 g/dL (14-18) L 11/08/23 11:17 Sodium 139.0 mmol/L (131-143) 11/05/23 10:16 Potassium 5.8 mmol/L (3.5-5.0) H 11/05/23 10:16 Glucose 149.0 mg/dL (70-115) H 11/05/23 10:16 Ionized Calcium 1.0 mmol/L (1.1-1.4) L 11/05/23 10:16 O2 Delivery Device Vent 11/11/23 05:17 FiO2 40.0 % 11/11/23 05:17 Tidal Volume 0.45 11/11/23 05:17 PEEP 8.0 cmH20 11/11/23 05:17 Prompt Care Rn ID Dane 11/11/23 05:17 Sodium 140 mmol/L (136-145) 11/16/23 06:21 Potassium 4.1 mmol/L (3.5-5.1) 11/16/23 06:21 Chloride 99 mmol/L (98-107) 11/16/23 06:21 Carbon Dioxide 26 mmol/L (22-29) 11/16/23 06:21 Anion Gap 19.1 (5-19) H 11/16/23 06:21 BUN 37 mg/dL (6-20) H 11/16/23 06:21 Creatinine 6.9 mg/dL (0.7-1.2) H* 11/16/23 06:21 GFR Calculation 8.4 mL/min (90-130) L 11/16/23 06:21 Glucose 78 mg/dL (65-115) 11/16/23 06:21 POC Glucose 101 mg/dL (70-110) 11/11/23 23:36 Calculated Osmolality 298 mOsm/kg (285-295) H 11/16/23 06:21 Lactic Acid 1.7 mmol/L (0.5-2.2) 11/05/23 04:26 Lactate 1.5 mmol/L (0.5-2.2) 11/13/23 04:40 Calcium 8.5 mg/dL (8.5-10.5) 11/16/23 06:21 Phosphorus 6.7 mg/dL (2.5-4.5) H 11/13/23 04:40 Magnesium 2.0 mg/dL (1.7-2.3) 11/13/23 04:40 Total Bilirubin 0.8 mg/dL (0.15-1.2) 11/13/23 04:40 AST 16 U/L (0-40) 11/13/23 04:40 ALT 9 U/L (0-41) 11/13/23 04:40 Alkaline Phosphatase 83 U/L (40-130) 11/13/23 04:40 Creatine Kinase 52 U/L (39-308) 11/13/23 04:40 Troponin T Baseline 262 ng/L (0-15) H* 11/05/23 04:26 Troponin T 120 Minute 260.3 ng/L (0-15) H 11/05/23 05:55 Delta Troponin T -1.7 ABS# (0-10) L 11/05/23 05:55 Troponin T Hi Sens 6Hr 490.4 ng/L (0-15) H 11/05/23 10:55 Troponin T Hi Sens 6Hr Delta 228.4 ng/L (0-12) H* 11/05/23 10:55 C-Reactive Protein 118.0 mg/L (0.0-4.9) H 11/13/23 04:40 NT-Pro-B Natriuret Pep > 43607 pg/mL (0-125) H 11/13/23 04:40 Total Protein 7.9 g/dL (6.6-8.7) 11/13/23 04:40 Albumin 2.8 g/dL (3.5-5.2) L 11/13/23 04:40 Globulin 5.1 g/dL (1.3-4.6) H 11/13/23 04:40 Procalcitonin 2.03 ng/mL (0-0.5) H 11/13/23 04:40 TSH 9.20 uIU/mL (0.27-4.20) H 11/10/23 04:00 Free T4 0.74 ng/dL (0.82-1.77) L 11/10/23 04:00 Free T3 1.1 PG/ML (2.0-4.4) L 11/10/23 04:00 Random Cortisol 16.36 ug/dL (2.47-19.5) 11/05/23 09:00 Fluid Color Yellow 11/05/23 Unknown Fluid Appearance Cloudy 11/05/23 Unknown Fluid pH 8.0 11/05/23 Unknown Fluid WBC 329 /uL 11/05/23 Unknown Fluid RBC 4.000 10^3/uL 11/05/23 Unknown Fld Polynuclear WBCs # 0.039 11/05/23 Unknown Fld Polynuclear WBCs % 11.900 % 11/05/23 Unknown Fl Mononucl WBCs #(Auto) 0.290 11/05/23 Unknown Fl Mononuclear % Auto 88.100 % 11/05/23 Unknown Fld Crystal Laterality Ascites 11/05/23 Unknown Fluid Glucose 144.0 mg/dL 11/05/23 Unknown Fluid Total Protein 3.3 g/dL 11/05/23 Unknown Fluid Albumin 1.7 g/dL 11/05/23 Unknown Fluid LDH 95 U/L 11/05/23 Unknown Fluid Amylase Cancelled 11/05/23 Unknown Fluid Alk Phosphatase 45 IU/L 11/05/23 Unknown Fluid Uric Acid 5 mg/dL 11/05/23 Unknown Adenovirus (PCR) Not detected (NOT DETECT) 11/05/23 05:01 C. pneumoniae DNA (PCR) Not detected (NOT DETECT) 11/05/23 05:01 Coronavirus 229E (PCR) Not detected (NOT DETECT) 11/05/23 05:01 Human Metapneumovir PCR Not detected (NOT DETECT) 11/05/23 05:01 Influenza A (H1) PCR Not detected (NOT DETECT) 11/05/23 05:01 Influ A (H1/09) PCR Not detected (NOT DETECT) 11/05/23 05:01 Influenza A (H3) PCR Not detected (NOT DETECT) 11/05/23 05:01 Influenza Type A (PCR) Not detected (NOT DETECT) 11/05/23 05:01 Influenza Type B (PCR) Not detected (NOT DETECT) 11/05/23 05:01 M. pneumoniae (PCR) Not detected (NOT DETECT) 11/05/23 05:01 Parainfluenza 1 (PCR) Not detected (NOT DETECT) 11/05/23 05:01 Parainfluenza 2 (PCR) Not detected (NOT DETECT) 11/05/23 05:01 Parainfluenza 3 (PCR) Not detected (NOT DETECT) 11/05/23 05:01 Parainfluenza 4 (PCR) Not detected (NOT DETECT) 11/05/23 05:01 RSV Type A (PCR) Not detected (NOT DETECT) 11/05/23 05:01 RSV Type B (PCR) Not detected (NOT DETECT) 11/05/23 05:01 Entero/Rhino (PCR) Not detected (NOT DETECT) 11/05/23 05:01 SARS-CoV-2 (PCR) Not detected (NOT DETECT) 11/05/23 05:01 SARS-CoV-2 Ag (Rapid) negative (Negative) 11/16/23 09:24 MRSA (PCR) Not detected (NOT DETECTED) 11/08/23 07:20 Vitals Last Vital Signs Temp 97.7 F 11/16/23 07:46 Pulse 85 11/16/23 08:46 Resp 18 11/16/23 08:00 BP 108/73 11/16/23 07:46 Pulse Ox 100 11/16/23 08:00 O2 Del Method Nasal Cannula 11/16/23 08:00 O2 Flow Rate 2 11/16/23 08:00 FiO2 40 11/14/23 00:29 Discharge Plan Discharge Patient Disposition: Xfer SNF Condition: Stable Prescriptions: New amiodarone [Pacerone] 200 mg Tablet See Rx Instructions .ROUTE .COMPLEX Qty: 60 0RF Rx Instructions: 2 tabs twice daily for 3 days, 1 tab twice daily for 14 days, then 1 tab daily levothyroxine 25 mcg Tablet 25 mcg PO QAM 30 Days Qty: 30 0RF Eliquis 5 mg Tablet 5 mg PO BID@0900,2100 30 Days Qty: 30 0RF Continued ropinirole 0.25 mg tablet 0.25 mg PO BEDTIME PRN (Reason: Restless Leg(S)) oxycodone 5 mg Tablet 5 mg PO Q6H PRN (Reason: Pain) clopidogrel 75 mg Tablet 75 mg PO DAILY atorvastatin 80 mg tablet 80 mg PO DAILY pantoprazole 40 mg tablet,delayed release (DR/EC) 40 mg PO DAILY RenaPlex-D 800 mcg-12.5 mg -2,000 unit tablet 1 tab PO DAILY mirtazapine 30 mg tablet,disintegrating 30 mg PO DAILY nitroglycerin 0.1 mg/hr patch 24 hour 1 patch transdermal DAILY cilostazol 50 mg tablet 50 mg PO DAILY nitroglycerin 0.4 mg tablet, sublingual 0.4 mg buccal DAILY PRN (Reason: Chest Pain) Rx Instructions: NOT TO EXCEED 3 TABLETS ondansetron HCl 4 mg tablet 4 mg PO Q4H PRN (Reason: Nausea) sevelamer carbonate 800 mg tablet See Rx Instructions .ROUTE .COMPLEX Rx Instructions: take four to five tabs po with meals venlafaxine [Effexor XR] 75 mg Capsule,Extended Release 24hr 75 mg PO QAM hydroxyzine HCl 25 mg Tablet 25 mg PO Q6H PRN (Reason: Anxiety) polyethylene glycol 3350 [Miralax] 17 gram/dose Powder 17 g PO BID PRN (Reason: Constipation) albuterol sulfate 90 mcg/actuation Hfa Aerosol Inhaler 2 puff INHALATION Q6H PRN (Reason: Shortness Of Breath) Patient Comments: pt states he does not take this B-complex with vitamin C Capsule 1 cap PO DAILY diphenhydramine HCl [Benadryl Allergy] 25 mg tablet 25 mg PO DAILY PRN (Reason: itching) gabapentin 300 mg capsule 300 mg PO TID PRN (Reason: NERVE PAIN) trazodone 50 mg tablet 50 mg PO BEDTIME Mehdi (with collagen) 7-7-1.5 gram Powder In Packet 1 packet PO BID Rx Instructions: mix 1 packet with 8-10 oz liquid Lokelma 10 gram powder in packet See Rx Instructions .ROUTE .COMPLEX Rx Instructions: as directed Garlic Edta 1 tab PO BID Held Rexulti 0.5 mg tablet 0.5 mg PO QAM Hold Instructions: Resume on 12/24/23. hold until you see PMD Discontinued metoprolol succinate 25 mg tablet extended release 24 hr 25 mg PO DAILY midodrine 5 mg Tablet 10 mg PO TID 30 Days Qty: 180 0RF aspirin 81 mg Tablet,Delayed Release (Dr/Ec) 81 mg PO DAILY 30 Days Qty: 30 6RF No Action (DME) Wheel Chair See Rx Instructions .Route .MEDSUPPLY Qty: 1 0RF Rx Instructions: As directed HOME (DME) Compression Stockings See Rx Instructions .Route .MEDSUPPLY Qty: 1 0RF Rx Instructions: As directed (DME) ho-chunk boot modification See Rx Instructions .Route .MEDSUPPLY Qty: 1 0RF Rx Instructions: Straps are failing (DME) diabetic shoes with 3 heat molded insoles See Rx Instructions .Route .MEDSUPPLY Qty: 1 0RF Rx Instructions: As directed to HOME (DME) Prevalon boot See Rx Instructions .Route .MEDSUPPLY Qty: 1 0RF Rx Instructions: As directed Discharge Orders: Discharge Order (Routine); Ordered 11/16/23 Ordered By: Julio C Bal Referrals: Sulma Wetzel MD [Primary Care Provider] - Erik Arguelles M.D [Physician] - 7-10 days Discharge Diet: Advance as tolerated Discharge Activity: Resume usual activity Patient Instructions: Dialysis Diet (DC), Hemodialysis (DC), Opioid Safety Activity Restrictions/Additional Instructions: - Please follow-up with cardiology ? If you develop any bloody or black stools please go to the emergency room ? Continue Plavix, 75 mg once daily, Eliquis 5 mg twice daily ? Please use oxycodone sparingly for pain, do not drive or operate heavy machinery or drink while taking medication monitor ? Monitor for fluid overload -Continue BiPAP during the night scheduled, as needed during the day Discharge Attestations Time Spent in Discharge Care*: greater than 30 min Status at Discharge: Cognitive status at discharge: cognitively intact, Behavioral status at discharge: cooperative, Quality Metrics Clinical Quality Measures [ No reported AMI, CVA or VTE this stay] Coding Level of Care Code 84580 Total time (in minutes) for Discharge: 45 Diagnoses Chest pain R07.9 Chest pain type: unspecified Acute respiratory failure J96.00 Cardiac arrest I46.9 Ventricular fibrillation I49.01 Atrial fibrillation, unspecified type I48.91 Atrial fibrillation type: unspecified Idiopathic hypotension I95.0 Hypotension type: idiopathic hypotension Sepsis A41.9 Type 2 diabetes mellitus with chronic kidney disease on chronic dialysis, without long-term current use of insulin E11.22; N18.6; Z99.2 Diabetes mellitus care home insulin use: without care home use Diabetes mellitus complication status: with kidney complications Diabetes mellitus complication detail: with chronic kidney disease Chronic kidney disease stage: on chronic dialysis Abnormal TSH R79.89
[2023-11-16] MEDS: heparin, porcine 1,000 unit/mL INJ 10 mL 1000 UNIT IV (11:30)
--- NOTE | 2023-11-16 16:11 | P.PN_ITS ---
Subjective 2 Subjective: getting hd Medications: Reviewed: Yes Vitals/I&O/Wt Last Vital Signs Temp 97.7 F 11/16/23 07:46 Pulse 85 11/16/23 08:46 Resp 18 11/16/23 08:00 BP 108/73 11/16/23 07:46 Pulse Ox 100 11/16/23 08:00 O2 Del Method Nasal Cannula 11/16/23 08:00 O2 Flow Rate 2 11/16/23 08:00 FiO2 40 11/14/23 00:29 11/16/23 11/16/23 11/16/23 06:59 14:59 22:59 Intake Total 0 / 1090 100 / 100 Output Total 0 / 0 Balance 0 / 1090 100 / 100 Weight last 48 hrs Weight 109.361 kg Weight 108.091 kg Weight 111 kg Physical Exam 2 Narrative: awake , on 3L NC NO DISTRESS S1S2 RRR per report Lungs clear per report Urinary Catheter Management: Melgar: Cath Placed During This Visit: yes, but has since been removed by the nurse Reason for Continuing Indwelling Catheter: Decision to DC Catheter Urinary Catheter Date of Insertion: 11/05/23 Urinary Catheter Time of Insertion: 07:48 Date Urinary Catheter Removed: 11/06/23 Time Urinary Catheter Discontinued: 12:22 Data 11/16/23 04:48 11/16/23 06:21 A&P Assessment and plan (1) End-stage renal disease on hemodialysis: 1. End-stage renal disease: On TTS schedule as outpatient, was hyperkalemic and status post cardiac arrest. -Assess daily for HD needs - next HD today 2. Status post V-fib, ROSC achieved currently on amiodarone and on pressors 3. Chest pain, workup in process, s/p LHC 4. Acute on chronic respiratory failure, extubated 5. Hyperkalemia: improved 6. sepsis 7. Anemia: Hemoglobin 11.2 , monitor, ALBERTO with HD. Patient evaluated using audiovisual cart. Time spent 20 minutes Plan per mark Attestations 2 Medical Necessity Statement*: per mark Coding Level of Care Code Acute Code for Chg Fwd Diagnoses End-stage renal disease on hemodialysis N18.6; Z99.2
== END 2023-11-16 16:30 | disposition skilled nursing facility (03) | DRG 853 ==
LOC: ER 07:22 → ICU 07:51 → MEDSURG 11-14 14:13
PROVIDERS: Hospitalist; Internal Medicine; Admitting Provider Internal Medicine; Emergency Provider Emergency Medicine; PCP Internal Medicine; Visit Provider Family Medicine
PROC: 02713ZZ Dilation of Coronary Artery, Two Arteries, Percutaneous Approach (ICD-10-PCS; principal; 2023-11-08 10:00)
PROC: 02713ZZ Dilation of Coronary Artery, Two Arteries, Percutaneous Approach (ICD-10-PCS; 2023-11-08 10:00)
DX: A41.9 Sepsis, unspecified organism (principal); I46.9 Cardiac arrest, cause unspecified; N18.6 End stage renal disease; J96.22 Acute and chronic respiratory failure with hypercapnia; J96.21 Acute and chronic respiratory failure with hypoxia; J18.9 Pneumonia, unspecified organism; I49.01 Ventricular fibrillation; N17.9 Acute kidney failure, unspecified; E46 Unspecified protein-calorie malnutrition; T82.855A Stenosis of coronary artery stent, initial encounter; R18.8 Other ascites; J44.0 Chronic obstructive pulmonary disease with (acute) lower respiratory infection; I25.110 Atherosclerotic heart disease of native coronary artery with unstable angina pectoris; R65.20 Severe sepsis without septic shock; E11.22 Type 2 diabetes mellitus with diabetic chronic kidney disease; I27.20 Pulmonary hypertension, unspecified; G47.33 Obstructive sleep apnea (adult) (pediatric); Y71.8 Miscellaneous cardiovascular devices associated with adverse incidents, not elsewhere classified; I35.0 Nonrheumatic aortic (valve) stenosis; D50.8 Other iron deficiency anemias; E78.5 Hyperlipidemia, unspecified; R94.6 Abnormal results of thyroid function studies; I48.91 Unspecified atrial fibrillation; E87.5 Hyperkalemia; E11.42 Type 2 diabetes mellitus with diabetic polyneuropathy; E11.51 Type 2 diabetes mellitus with diabetic peripheral angiopathy without gangrene; E55.9 Vitamin D deficiency, unspecified; D63.1 Anemia in chronic kidney disease; Z99.2 Dependence on renal dialysis; Z68.31 Body mass index [BMI] 31.0-31.9, adult; Z79.02 Long term (current) use of antithrombotics/antiplatelets; Z89.512 Acquired absence of left leg below knee; Z90.5 Acquired absence of kidney; Z85.528 Personal history of other malignant neoplasm of kidney; Z95.5 Presence of coronary angioplasty implant and graft
CPT/HCPCS: 31500; 36415; 36416; 36556; 36573; 36592; 36600; 49083; 51702; 71045; 71250; 73590; 74176; 80048; 80051; 80053; 80503; 82042; 82330; 82533; 82550; 82803; 82805; 82810; 82945; 82962; 83605; 83615; 83735; 83880; 83986; 84075; 84100; 84145; 84157; 84439; 84443; 84481; 84484; 84560; 85025; 85347; 85610; 85651; 85730; 86140; 87040; 87070; 87075; 87186; 87205; 87426; 87486; 87581; 87633; 87641; 89050; 90935; 92523; 92526; 92610; 92920; 92921; 92978; 92979; 93005; 93308; 93460; 93971; 94002; 94003; 94640; 94660; 94799; 96365; 96367; 96372; 96374; 96375; 96376; 97110; 97162; 97167; 97530; 97535; 99291; C1725; C1751; C1753; C1769; C1887; C1894; C9113; J0283; J1170; J1644; J1815; J2020; J2250; J2270; J2405; J2543; J2598; J2704; J3010; J3490; J7050; J7626; J7799; P9046; P9047; Q3014; Q4081; Q9967

== ENCOUNTER 2023-11-19 08:45 | Day surgery (SDC) | payer MEDICARE, MEDICAID, SELFPAY ==
--- NOTE | 2023-11-19 09:03 | US_ITS ---
WS: [id number] ULTRASOUND-GUIDED PARACENTESIS CLINICAL INFORMATION: ascites COMPARISON: None. Procedure Informed consent: The risks, benefits, and alternatives of the procedure were discussed with the riya ent. Verbal and written consent was obtained. Timeout: A timeout was performed to confirm the correct patient, procedure, and site. Preparation: A suitable skin site was identified. The patient was prepped and draped in usual sterile fashion. Lidocaine 1% was used for local anesthesia. Catheter: 4 Nepali One-step Yueh catheter. Side: LEFT lower quadrant. Fluid Volume: 8400 ml Color: Clear yellow DISPOSITION: Discarded safely. Complications: None. Patient disposition: Discharged from the department in stable condition. IMPRESSION: Uncomplicated ultrasound-guided paracentesis. Removal of 8400 cc
[2023-11-19 09:04] VITALS: BP 99/71; PULSE 83; RESP 18; TEMP 36.2; O2SAT 94; BMI 34.2
[2023-11-19] MEDS: albumin 75 G/300 ML BAG 300 G IV (09:51)
== END 2023-11-19 10:45 | disposition home or self-care (01) ==
LOC: GILAB 08:46
PROVIDERS: Radiology Neuroradiology; PCP Internal Medicine; Visit Provider Registered Nurse
PROC: (CPT 49082; principal; 2023-11-19 09:30)
DX: R18.8 Other ascites (principal)
CPT/HCPCS: 49083; 96365; P9046

== ENCOUNTER 2023-11-22 18:48 | Inpatient (IN) | payer MEDICARE, MEDICAID, SELFPAY ==
[2023-11-22] VITALS (7 sets, daily range): BP systolic 74–93; BP diastolic 35–74; PULSE 60–90; RESP 12–20; TEMP 36.2–37; O2SAT 94–100; BMI 34.2; BMI 33.7
--- NOTE | 2023-11-22 18:53 | ECG_ITS ---
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 Measurements Intervals [place] Rate: 90 P: -15 MA: 236 QRS: 141 QRSD: 132 T: 6 QT: 425 QTc: 521 Interpretive Statements SINUS RHYTHM WITH FIRST DEGREE AV BLOCK INTRAVENTRICULAR CONDUCTION DELAY [130+ ms QRS DURATION] POSSIBLE RIGHT VENTRICULAR HYPERTROPHY [SOME/ALL OF: PROMINENT R IN V1, LATE TRANSITION, RAD, JEROME, SSS] ANTEROSEPTAL MYOCARDIAL INFARCTION , OF INDETERMINATE AGE [40+ ms Q WAVE IN V1-V4] Compared to ECG 11/13/2023 20:13:44 First degree AV block now present.Intraventricular conduction delay now present Atrial abnormality now present Right-axis deviation no longer present Right bundle-branch block no longer present Myocardial infarct finding still present Electronically Signed On 11-24-2023 19:16:10 CDT by Shirin Kendrick M.D. [id number]
--- NOTE | 2023-11-22 18:54 | XRR_ITS ---
PROCEDURE INFORMATION: Exam: XR Chest Exam date and time: 11/22/2023 7:48 PM Age: 53 years old Clinical indication: Pain; Angina pectoris; Additional info: Chest pain TECHNIQUE: Imaging protocol: Radiologic exam of the chest. Views: 1 view. COMPARISON: CR XR chest 1V portable [id number] 11/12/2023 5:14 AM FINDINGS: Lungs: Hypoaerated lungs without consolidation. There is previous haziness at the lung bases but this is reduced. Pleural spaces: Unremarkable. No pleural effusion. No pneumothorax. Heart/Mediastinum: Cardiac silhouette enlargement is unchanged. Bones/joints: Unremarkable. XR/XR chest 1V portable [id number] IMPRESSION: Improved exam. Decreased lower lung opacities.
[2023-11-22 19:13] LABS: Eosinophils # 0.3 10^3/uL (0.0-0.8); Eosinophils % 7.7 %; Hematocrit 21.7 % (37-53); Lymphocytes # 0.6 10^3/uL (0.8-4.8); Lymphocytes % 15.3 %; Mean Corpuscular HGB Conc 29.5 g/dL (30-55); Mean Corpuscular Hemoglobin 28.1 pg (27-33); Mean Corpuscular Volume 95.2 fl (82-101); Mean Platelet Volume 10.9 fL (7.4-10.4); Monocytes # 0.4 10^3/uL (0.2-0.9); Monocytes % 9.2 %; Neutrophils # 2.69 10^3/uL (1.8-7.7); Neutrophils % 66.6 %; Nucleated Red Blood Cells % 0 %; Platelet Count 145 10^3/cmm (157-399); Red Blood Count 2.28 10^6/uL (3.85-5.65); Red Cell Distribution Width 18.8 % (12.1-15.1); White Blood Count 4.04 10^3/uL (3.29-11.43)
--- NOTE | 2023-11-22 19:16 | ED_ITS ---
HPI - Chest Pain 2 General: Chief Complaint: Chest Pain Stated Complaint: CHEST PAIN; HYPOTENSION Time Seen by Provider: 11/22/23 18:53 History of Present Illness: Patient presents to the ER by EMS from [facility] with complaints of chest pain and hypotension. [facility] and was already hypotensive per the EMS and prison gave him 1 dose of nitro which helped his chest pain but he became more hypotensive. Upon arrival patient's blood pressure 74/35. Patient is chest pain-free. Patient is requiring 2 L of oxygen to keep his saturation up to 95+ percent. Patient does not normally require oxygen. Patient has end-stage renal disease and is on dialysis and had dialysis today. Patient states he does not produce urine. Patient has not had any active bleeding. Review of Systems 2 General: Reports: 10 or more systems reviewed and unremarkable except in HPI and below PFSH ED 2 PFSH: Medical History Uremia Chronic osteomyelitis Type 2 diabetes mellitus 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, limited to breakdown of skin Chronic osteomyelitis of right foot Foot osteomyelitis, right Osteomyelitis Cellulitis Necrosis of surgical wound Foot osteomyelitis, left Hypovolemic shock Anemia of chronic disease Ulcer of sacral region, stage 1 Gas gangrene Acquired equinovarus deformity of left foot Pre-ulcerative calluses Xerosis of skin 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 Cellulitis Diabetes BMI 50.0-59.9, adult Diabetic foot ulcers Fracture, thoracic vertebra T7-T8 Osteomyelitis Non-pressure chronic ulcer of other part of right foot with necrosis of muscle Chronic venous insufficiency Chronic dysfunction of both eustachian tubes Lung nodule Hypoglycemia unawareness associated with type 2 diabetes mellitus Chronic ulcer of left foot with fat layer exposed Non-healing ulcer of right foot with fat layer exposed Vitamin D deficiency First degree heart block COPD (chronic obstructive pulmonary disease) Hypertension Urinary retention History of renal cell carcinoma Morbid obesity with BMI of 40.0-44.9, adult Cardiac arrest Anemia Pneumonia due to 2019-nCoV (~07/2020) Renal cell carcinoma History bilateral renal cell carcinoma 2007 then recurrence on the contralateral side 2011. No recurrence for long-term follow-up with some suspicion on CT scan April 2020. CHF (congestive heart failure), NYHA class III Chronic respiratory failure with hypoxia and hypercapnia Obesity hypoventilation syndrome Metabolic alkalosis Accelerated hypertension Restrictive lung disease Obstructive sleep apnea non compliant with home bipap/cpap Fracture of fourth metatarsal bone of left foot Type 2 diabetes mellitus with diabetic polyneuropathy PVD (peripheral vascular disease) Fracture of fifth metatarsal bone of left foot Neuropathy Surgical History Status post below-knee amputation of left lower extremity History of left below knee amputation History of cataract surgery H/O wisdom tooth extraction Hx of lymph node excision H/O partial nephrectomy bilateral Family History Father , at age 65 Diabetes Cancer Metastatic prostate cancer to liver Mother , at age 72 Diabetes Grandfather Diabetes Cancer Other Anemia Hyperlipidemia Social History Smoking and tobacco/nicotine status: never used tobacco/nicotine Second hand smoke exposure: Yes Alcohol intake: current Alcohol intake frequency: holidays/special occasions only Substance/Drug Use: never Lives independently: Yes Household members: spouse Housing: House Marital status: service: No Current occupational status: retired Pets and animals: Yes Do you think of yourself as: Straight/Heterosexual Current gender identity: Male Physical Exam 2 Const: COMMON NORMALS: no acute distress, average body habitus, patient oriented x3, no limitations, healthy appearing, alert and well nourished HENMT: COMMON NORMALS: normocephalic, atraumatic, hearing grossly normal bilaterally, external ears normal, Normal external nose present, moist oral mucous membranes and oropharynx normal HEAD & SCALP: normocephalic and atraumatic NOSE: Normal external nose present EXTERNAL EAR: Yes external ears normal Neck/C-Spine: COMMON NORMALS: full ROM, no lymphadenopathy, supple, no meningeal signs and no JVD Chest: COMMONS NORMALS: normal inspection of the chest and normal palpation of entire chest wall Resp: COMMON NORMALS: normal respiratory effort, No retractions, No use of accessory muscles and clear to auscultation bilaterally AUSCULTATION: clear to auscultation bilaterally Cardio: COMMON NORMALS: no JVD, regular rate, regular rhythm, S1 normal heart sound present, S2 normal heart sound present, No gallops present (Cardio), No clicks present (Cardio) and No murmurs present (Cardio) RATE: regular rate RHYTHM: regular rhythm HEART SOUNDS: S1 normal heart sound present and S2 normal heart sound present GI: COMMON NORMALS: Normal to inspection, nondistended, normoactive bowel sounds present (Positive umbilical hernia), Soft to palpation, non-tender, No hepatosplenomegaly present and no masses PALPATION: Yes Soft to palpation and Yes No hepatosplenomegaly present Neuro: COMMON NORMALS: patient oriented x3 SENSORIUM/ORIENTATION: Yes alert MENINGEAL SIGNS: Yes no meningeal signs Course 2 Vital Signs: Vital signs: Vital Signs Temperature 98.6 F 11/22/23 18:50 Pulse Rate 90 11/22/23 18:50 Blood Pressure 74/35 11/22/23 18:50 Pulse Oximetry 99 11/22/23 18:50 Oxygen Delivery Me thod Nasal Cannula 11/22/23 18:50 Oxygen Flow Rate 2 11/22/23 18:50 MDM - Chest Pain Medical Decision Making This exam was performed patient alert oriented coherent, lab work was obtained revealed a hemoglobin of 6.4 which is down about 3 points from approximately week ago and revealed a troponin of 301 which appears to be his baseline. EKG showed no acute changes. Patient was typed and screened, anticipate patient will need to be admitted, Dr. Johansen was consulted who agreed to place patient in ICU for further evaluation and treatment. Differential Diagnosis Unlikely acute massive pulmonary embolism, acute respiratory failure, acute myocardial infarction, cardiac arrest or sudden cardiac Medical Records I reviewed the patient's medical records. Lab Data I reviewed the patient's lab results. 11/22/23 19:06 11/22/23 19:06 Laboratory Results WBC 4.04 10^3/uL (3.29-11.43) 11/22/23 19:06 RBC 2.28 10^6/uL (3.85-5.65) L 11/22/23 19:06 Hgb 6.40 g/dL (11.27-16.99) L* 11/22/23 19:06 Hct 21.7 % (37-53) L 11/22/23 19:06 MCV 95.2 fl (82-101) 11/22/23 19:06 MCH 28.1 pg (27-33) 11/22/23 19:06 MCHC 29.5 g/dL (30-55) L 11/22/23 19:06 RDW 18.8 % (12.1-15.1) H 11/22/23 19:06 Plt Count 145 10^3/cmm (157-399) L 11/22/23 19:06 MPV 10.9 fL (7.4-10.4) H 11/22/23 19:06 Neut % (Auto) 66.6 % 11/22/23 19:06 Lymph % (Auto) 15.3 % 11/22/23 19:06 [place] % (Auto) 9.2 % 11/22/23 19:06 Eos % (Auto) 7.7 % 11/22/23 19:06 Baso % (Auto) 1.0 % 11/22/23 19:06 Neut # (Auto) 2.69 10^3/uL (1.8-7.7) 11/22/23 19:06 Lymph # (Auto) 0.6 10^3/uL (0.8-4.8) L 11/22/23 19:06 [place] # (Auto) 0.4 10^3/uL (0.2-0.9) 11/22/23 19:06 Eos # (Auto) 0.3 10^3/uL (0.0-0.8) 11/22/23 19:06 Baso # (Auto) 0.0 10^3/uL (0.0-0.1) 11/22/23 19:06 Nucleated RBC % (auto) 0 % 11/22/23 19:06 Nucleated RBCs # 0.0 /100WBC 11/22/23 19:06 Sodium 137 mmol/L (136-145) 11/22/23 19:06 Potassium 3.6 mmol/L (3.5-5.1) 11/22/23 19:06 Chloride 94 mmol/L (98-107) L 11/22/23 19:06 Carbon Dioxide 37 mmol/L (22-29) H 11/22/23 19:06 Anion Gap 9.6 (5-19) 11/22/23 19:06 BUN 24 mg/dL (6-20) H 11/22/23 19:06 Creatinine 3.5 mg/dL (0.7-1.2) H 11/22/23 19:06 GFR Calculation 18.4 mL/min (90-130) L 11/22/23 19:06 Glucose 98 mg/dL (65-115) 11/22/23 19:06 Calculated Osmolality 288 mOsm/kg (285-295) 11/22/23 19:06 Calcium 6.6 mg/dL (8.5-10.5) L 11/22/23 19:06 Phosphorus 3.1 mg/dL (2.5-4.5) 11/22/23 19:06 Magnesium 1.6 mg/dL (1.7-2.3) L 11/22/23 19:06 Total Bilirubin 0.3 mg/dL (0.15-1.2) 11/22/23 19:06 AST 11 U/L (0-40) 11/22/23 19:06 ALT 7 U/L (0-41) 11/22/23 19:06 Alkaline Phosphatase 75 U/L (40-130) 11/22/23 19:06 Troponin T Baseline 301 ng/L (0-15) H* 11/22/23 19:06 Total Protein 5.7 g/dL (6.6-8.7) L 11/22/23 19:06 Albumin 2.8 g/dL (3.5-5.2) L 11/22/23 19:06 Globulin 2.9 g/dL (1.3-4.6) 11/22/23 19:06 All radiology interpretation(s) finalized by discharge Discharge Plan Discharge Patient Disposition: Admitted As Inpatient Clinical Impression: Anemia requiring transfusions, Chest pain, End stage renal disease on dialysis, Acute hypoxic respiratory failure, Hypotension Condition: Stable Coding Level of Care Code ED Psychiatric Rn for Patricia Reid
[2023-11-22] MEDS: sodium chloride 0.9% 500 ML 999 ML IV (19:24)
[2023-11-22 19:31] LABS: Troponin(5th) Baseline 301 ng/L (0-15)
[2023-11-22 19:32] LABS: Alanine Aminotransferase 7 U/L (0-41); Albumin Level 2.8 g/dL (3.5-5.2); Alkaline Phosphatase 75 U/L (40-130); Anion Gap 9.6 (5-19); Aspartate Amino Transferase 11 U/L (0-40); Blood Urea Nitrogen 24 mg/dL (6-20); Calcium 6.6 mg/dL (8.5-10.5); Carbon Dioxide 37 mmol/L (22-29); Chloride 94 mmol/L (98-107); Creatinine Clr Calc Pharmacy 32.8368; Globulin 2.9 g/dL (1.3-4.6); Glomerular Filtration Rate 18.4 mL/min (90-130); Glucose 98 mg/dL (65-115); Magnesium 1.6 mg/dL (1.7-2.3); Osmolality Calculated 288 mOsm/kg (285-295); Phosphorus 3.1 mg/dL (2.5-4.5); Potassium 3.6 mmol/L (3.5-5.1); Sodium 137 mmol/L (136-145); Total Bilirubin 0.3 mg/dL (0.15-1.2); Total Protein 5.7 g/dL (6.6-8.7)
--- NOTE | 2023-11-22 19:52 | PM.HP ---
Providers/Chief Complaint Primary Care Provider: Sulma Wetzel MD Chief Complaint: CHEST PAIN; HYPOTENSION History of Present Illness Akil Velasco is a 53 year old male with history of coronary stent, was recently discharged from the hospital after suffering cardiac arrest, got extubated 11/10 he was in septic shock related to pneumonia, he was discharged home on Eliquis and Plavix for history of A-fib along amiodarone to long term facility. Please note patient Complaining of chest discomfort which was deemed related to chest compressions during [facility]. He is presenting today from the retirement with chief complaint of low blood pressure and chest discomfort. Patient was transferred to [place] where he got 3 stents in LAD, he gets dialyzed Sunday, also has liver failure requires frequent paracentesis. Uncontrolled diabetes status post amputation. Patient is stating that today he was feeling very lethargic and fatigued, he came back from dialysis and his blood pressure remained extremely low, he is also endorsing on and off/intermittent dark-colored stools for last few months he is due for an EGD as well Review of Systems Const: Denies: fever(s) Eyes: Denies: change in vision ENMT: Denies: throat pain Card: Reports: chest pain Resp: Reports: dyspnea GI: Denies: abdominal pain : Denies: flank pain Musc: Reports: back pain Medications/Allergies Home Medications Medication Instructions Recorded Confirmed Last Taken Type Wheel Chair #1 ea 08/18/21 11/19/23 11/18/23 Rx ropinirole 0.25 mg tablet 0.25 mg PO BEDTIME PRN Restless 08/22/21 11/19/23 11/01/23 History Leg(S) ondansetron HCl 4 mg tablet 4 mg PO Q4H PRN Nausea 04/11/22 11/19/23 11/01/23 History Compression Stockings #1 ea 04/12/22 11/19/23 11/18/23 Rx ely shoshone boot modification #1 ea 07/17/22 11/19/23 11/18/23 Rx oxycodone 5 mg tablet 5 mg PO Q6H PRN Pain 08/16/22 11/19/23 11/01/23 History B-complex with vitamin C 1 cap PO DAILY 10/16/22 11/19/23 11/18/23 History albuterol sulfate 90 mcg/actuation 2 puff inhalation Q6H PRN 10/16/22 11/19/23 11/01/23 History aerosol inhaler Shortness Of Breath diphenhydramine HCl 25 mg tablet 25 mg PO DAILY PRN itching 10/16/22 11/19/23 11/01/23 History (Benadryl Allergy) hydroxyzine HCl 25 mg tablet 25 mg PO Q6H PRN Anxiety 10/16/22 11/19/23 11/01/23 History polyethylene glycol 3350 17 17 g PO BID PRN Constipation 10/16/22 11/19/23 11/01/23 History gram/dose oral powder (Miralax) venlafaxine 75 mg capsule,extended 75 mg PO QAM 10/16/22 11/19/23 11/18/23 History release 24 hr (Effexor XR) Prevalon boot #1 ea 11/21/22 11/19/23 11/18/23 Rx diabetic shoes with 3 heat molded #1 ea 12/15/22 11/19/23 11/18/23 Rx insoles gabapentin 300 mg capsule 300 mg PO TID PRN NERVE PAIN 01/02/23 11/19/23 11/01/23 History vit B,C-folic ac 800 mcg-zinc 12.5 1 tab PO DAILY 05/07/23 11/19/23 11/18/23 History mg-selen-D3 2,000 unit-vit E tablet (RenaPlex-D) atorvastatin 80 mg tablet 80 mg PO DAILY 07/02/23 11/19/23 11/18/23 History clopidogrel 75 mg tablet 75 mg PO DAILY 07/02/23 11/19/23 11/18/23 History pantoprazole 40 mg tablet,delayed 40 mg PO DAILY 07/02/23 11/19/23 11/18/23 History release mirtazapine 30 mg disintegrating 30 mg PO DAILY 07/27/23 11/19/23 11/18/23 History tablet nitroglycerin 0.1 mg/hr 1 patch transdermal DAILY 07/27/23 11/19/23 11/18/23 History transdermal 24 hour patch arginine 7 gram-glutam 7 1 packet PO BID 10/16/23 11/19/23 11/18/23 History gram-CaHMB 1.5 vgkk-onajx-bh-min oral pwd pkt (Mehdi (with collagen)) sodium zirconium cyclosilicate 10 See Rx Instructions .Route .COMPLEX 10/16/23 11/19/23 11/18/23 History gram oral powder packet (Lokelma) trazodone 50 mg tablet 50 mg PO BEDTIME 10/16/23 11/19/23 11/18/23 History brexpiprazole 0.5 mg tablet 0.5 mg PO QAM 11/05/23 11/19/23 11/18/23 History (Rexulti) cilostazol 50 mg tablet 50 mg PO DAILY 11/05/23 11/19/23 11/18/23 History nitroglycerin 0.4 mg sublingual 0.4 mg buccal DAILY PRN Chest Pain 11/05/23 11/19/23 Unknown History tablet apixaban 5 mg tablet (Eliquis) 5 mg PO BID@0900,2100 30 days #30 11/16/23 11/19/23 11/18/23 Rx tabs levothyroxine 25 mcg tablet 25 mcg PO QAM 30 days #30 tabs 11/16/23 11/19/23 11/18/23 Rx amiodarone 200 mg tablet (Pacerone) 200 mg PO BID 11/19/23 11/19/23 11/18/23 History amiodarone 200 mg tablet (Pacerone) 200 mg PO DAILY 11/19/23 11/19/23 11/18/23 History Allergies Allergy/AdvReac Type Severity Reaction Status Date / Time vancomycin Allergy Unknown ADR-Itching Verified 11/02/23 10:13 ,Rash linezolid [From Zyvox] Allergy tendonitis Verified 11/02/23 10:13 ciprofloxacin [From Cipro] AdvReac Severe Tendonitis Verified 11/02/23 10:13 dextrose 5 % in water Allergy Unknown tendonitis Uncoded 11/02/23 10:13 PFSH Acute PFSH: Medical History Uremia Chronic osteomyelitis Type 2 diabetes mellitus 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, limited to breakdown of skin Chronic osteomyelitis of right foot Foot osteomyelitis, right Osteomyelitis Cellulitis Necrosis of surgical wound Foot osteomyelitis, left Hypovolemic shock Anemia of chronic disease Ulcer of sacral region, stage 1 Gas gangrene Acquired equinovarus deformity of left foot Pre-ulcerative calluses Xerosis of skin 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 Cellulitis Diabetes BMI 50.0-59.9, adult Diabetic foot ulcers Fracture, thoracic vertebra T7-T8 Osteomyelitis Non-pressure chronic ulcer of other part of right foot with necrosis of muscle Chronic venous insufficiency Chronic dysfunction of both eustachian tubes Lung nodule Hypoglycemia unawareness associated with type 2 diabetes mellitus Chronic ulcer of left foot with fat layer exposed Non-healing ulcer of right foot with fat layer exposed Vitamin D deficiency First degree heart block COPD (chronic obstructive pulmonary disease) Hypertension Urinary retention History of renal cell carcinoma Morbid obesity with BMI of 40.0-44.9, adult Cardiac arrest Anemia Pneumonia due to 2019-nCoV (~07/2020) Renal cell carcinoma History bilateral renal cell carcinoma 2007 then recurrence on the contralateral side 2011. No recurrence for long-term follow-up with some suspicion on CT scan April 2020. CHF (congestive heart failure), NYHA class III Chronic respiratory failure with hypoxia and hypercapnia Obesity hypoventilation syndrome Metabolic alkalosis Accelerated hypertension Restrictive lung disease Obstructive sleep apnea non compliant with home bipap/cpap Fracture of fourth metatarsal bone of left foot Type 2 diabetes mellitus with diabetic polyneuropathy PVD (peripheral vascular disease) Fracture of fifth metatarsal bone of left foot Neuropathy Surgical History Status post below-knee amputation of left lower extremity History of left below knee amputation History of cataract surgery H/O wisdom tooth extraction Hx of lymph node excision H/O partial nephrectomy bilateral Family History Father , at age 65 Diabetes Cancer Metastatic prostate cancer to liver Mother , at age 72 Diabetes Grandfather Diabetes Cancer Other Anemia Hyperlipidemia Social History Smoking and tobacco/nicotine status: never used tobacco/nicotine Second hand smoke exposure: Yes Alcohol intake: current Alcohol intake frequency: holidays/special occasions only Substance/Drug Use: never Lives independently: Yes Household members: spouse Housing: House Marital status: service: No Current occupational status: retired Pets and animals: Yes Do you think of yourself as: Straight/Heterosexual Current gender identity: Male Vitals/I&O/Wt Last Vital Signs Temp 98.6 F 11/22/23 18:50 Pulse 90 11/22/23 18:50 BP 74/35 11/22/23 18:50 Pulse Ox 99 11/22/23 18:50 O2 Del Method Nasal Cannula 11/22/23 18:50 O2 Flow Rate 2 11/22/23 18:50 Weight last 48 hrs Weight 117.934 kg Physical Exam Narrative: Ascites Low blood pressure Awake and alert GCS 15 Nonfocal neuroexam No active chest pain Complaining of left-sided shoulder pain Lower extremity amputation Right leg venous's dermatitis with swelling A-fib without RVR Currently he is on 2 L nasal cannula Data 11/22/23 19:06 11/22/23 19:06 A&P Assessment and plan (1) Noncompliance: (2) Hypotension: Qualifiers: Hypotension type: unspecified hypotension type Qualified Code(s): I95.9 - Hypotension, unspecified (3) Aortic stenosis: (4) Shock: (5) Type 2 diabetes mellitus: Qualifiers: Diabetes mellitus fci insulin use: without intermodal customer service use Diabetes mellitus complication status: with kidney complications Diabetes mellitus complication detail: with chronic kidney disease Chronic kidney disease stage: on chronic dialysis Qualified Code(s): E11.22 - Type 2 diabetes mellitus with diabetic chronic kidney disease; N18.6 - End stage renal disease; Z99.2 - Dependence on renal dialysis (6) End-stage renal disease on hemodialysis: (7) Anemia requiring transfusions: (8) Acute hypoxic respiratory failure: (9) Anasarca: Plan Hypovolemic shock Third spacing versus hemorrhagic Patient had paracentesis done on Sunday Dialysis on I do believe this is third spacing related shock Admit to ICU Will give 1 unit PRBC Will also give albumin every 8 hours Patient is endorsing dark-colored stools, due for an EGD Patient does not want to stop Eliquis, he wants to continue Plavix along Eliquis for now Monitor H&H I will start patient on Protonix as well Left shoulder pain Not complaining active chest pain Troponin extremely high he stays around 300s Dialysis patient No active chest pain at the time of evaluation He could be having soreness from chest compressions done during [facility] on last visit A-fib: Continue Plavix along amiodarone Poorly controlled diabetes Sliding scale along insulin Sunday hemodialysis dependent Full code Clear liquid diet Attestations Medical Necessity Statement*: More than 2 midnights anticipated Diagnoses Noncompliance Z91.199 Hypotension I95.9 Hypotension type: unspecified hypotension type Aortic stenosis I35.0 Shock R57.9 Type 2 diabetes mellitus with chronic kidney disease on chronic dialysis, without long-term current use of insulin E11.22; N18.6; Z99.2 Diabetes mellitus fci insulin use: without intermodal customer service use Diabetes mellitus complication status: with kidney complications Diabetes mellitus complication detail: with chronic kidney disease Chronic kidney disease stage: on chronic dialysis End-stage renal disease on hemodialysis N18.6; Z99.2 Anemia requiring transfusions D64.9 Acute hypoxic respiratory failure J96.01 Anasarca R60.1
--- NOTE | 2023-11-22 20:07 | PC.NURSE ---
Pt. had bowel movement on way to ER. while cleaning patient, noted sluffing skin that was bleeding in small amounts. Pt. also has noted ascites in scrotum.
--- NOTE | 2023-11-22 20:43 | PC.NURSE ---
Pt. complaint of pain to inside of right thigh. Upon assessment, there is no noticeable sore or problem. Pt. did state that his pull up pad is too tight , so I loosened the pad.
[2023-11-22 20:54] LABS: D Dimer 12.02 ug/mLFEU (0-0.59)
--- NOTE | 2023-11-22 20:56 | ECG_ITS ---
[facility] Test Date: 2023-11-22 Pat Name: Akil Velasco Department: Room: [facility] Gender: Male Resolution Rep: : 1970 Requested By: Riley Nieves Order Number: [id number] MD: Shirin Kendrick M.D. Measurements Intervals [place] Rate: 81 P: 3 OR: 239 QRS: 127 QRSD: 132 T: -2 QT: 457 QTc: 532 Interpretive Statements SINUS RHYTHM WITH FIRST DEGREE AV BLOCK RIGHT BUNDLE BRANCH BLOCK [120+ ms QRS DURATION, UPRIGHT V1, 40+ ms S IN I/aVL/V4/V5/V6] LEFT POSTERIOR FASCICULAR BLOCK [QRS AXIS > 109, INFERIOR Q] Compared to ECG 11/22/2023 18:53:49 Right bundle-branch block now present Left posterior fascicular block now present Intraventricular conduction delay no longer present Atrial abnormality no longer present Myocardial infarct finding no longer present Electronically Signed On 11-24-2023 19:47:09 CDT by Shirin Kendrick M.D. [id number]
[2023-11-22] MEDS: albumin 25 G/100 ML BAG 60 G IV (21:09)
[2023-11-22] MEDS: trazodone 50 mg Tablet PO (21:14)
[2023-11-22] MEDS: morphine IR 15 mg Tablet PO (21:20)
[2023-11-22] MEDS: ondansetron 2 mg/ML SDV 2 mL 4 MG IVP (21:20)
[2023-11-22 22:00] LABS: Troponin 5 2HR 311.1 ng/L (0-15); Troponin 5 2HR Delta 10.1 ABS# (0-10)
[2023-11-22] MEDS: norepinephrine 4 MG/250 ML BAG 7.5 MG IV (22:35)
[2023-11-23] VITALS (250 sets, daily range): BP systolic 51–128; BP diastolic 24–77; PULSE 77–94; RESP 7–35; TEMP 36.4–37; O2SAT 79–100; BMI 33.7
[2023-11-23] MEDS: ALPRAZolam 0.5 mg Tablet PO (00:16)
--- NOTE | 2023-11-23 00:44 | ECG_ITS ---
[facility] Test Date: 2023-11-23 Pat Name: Akil Velasco Department: Room: [facility]08 Gender: Male Claims Technician: : 1970 Requested By: Riley Nieves Order Number: [id number] MD: Shirin Kendrick M.D. Measurements Intervals [place] Rate: 80 P: 10 PA: 228 QRS: 117 QRSD: 133 T: 29 QT: 453 QTc: 526 Interpretive Statements SINUS RHYTHM WITH FIRST DEGREE AV BLOCK RIGHT BUNDLE BRANCH BLOCK [120+ ms QRS DURATION, UPRIGHT V1, 40+ ms S IN I/aVL/V4/V5/V6] LEFT POSTERIOR FASCICULAR BLOCK [QRS AXIS > 109, INFERIOR Q] Compared to ECG 11/22/2023 21:49:05 No significant changes Electronically Signed On 11-24-2023 19:48:23 CDT by Shirin Kendrick M.D. [id number]
[2023-11-23] MEDS: sodium chloride 0.9% 100 mL Bag 50 ML IV (01:35)
[2023-11-23 03:03] LABS: Hematocrit 22.7 % (37-53)
[2023-11-23] MEDS: albumin 25 G/100 ML BAG 60 G IV (04:53)
[2023-11-23 05:10] LABS: Basophils # 0.1 10^3/uL (0.0-0.1); Basophils % 1.2 %; Eosinophils # 0.6 10^3/uL (0.0-0.8); Eosinophils % 10.9 %; Hematocrit 22.7 % (37-53); Mean Corpuscular HGB Conc 29.1 g/dL (30-55); Mean Corpuscular Hemoglobin 27.6 pg (27-33); Mean Platelet Volume 10.7 fL (7.4-10.4); Monocytes # 0.6 10^3/uL (0.2-0.9); Monocytes % 10.7 %; Neutrophils # 3.01 10^3/uL (1.8-7.7); Neutrophils % 57.8 %; Nucleated Red Blood Cells % 0.4 %; Platelet Count 148 10^3/cmm (157-399); Red Blood Count 2.39 10^6/uL (3.85-5.65); Red Cell Distribution Width 20.4 % (12.1-15.1); White Blood Count 5.21 10^3/uL (3.29-11.43)
[2023-11-23 05:29] LABS: Anion Gap 10.6 (5-19); Blood Urea Nitrogen 25 mg/dL (6-20); Calcium 6.9 mg/dL (8.5-10.5); Carbon Dioxide 37 mmol/L (22-29); Chloride 89 mmol/L (98-107); Creatinine Clr Calc Pharmacy 29.9813; Glomerular Filtration Rate 16.7 mL/min (90-130); Glucose 171 mg/dL (65-115); Magnesium 1.7 mg/dL (1.7-2.3); Osmolality Calculated 284 mOsm/kg (285-295); Phosphorus 4.2 mg/dL (2.5-4.5); Potassium 3.6 mmol/L (3.5-5.1); Sodium 133 mmol/L (136-145)
[2023-11-23] MEDS: levothyroxine 25 mcg Tablet PO (06:11)
[2023-11-23] MEDS: morphine IR 15 mg Tablet PO ×3 (06:14→21:33)
--- NOTE | 2023-11-23 08:27 | PC.PHAR ---
PT IS NOW IN [facility] 11/23/23
--- NOTE | 2023-11-23 09:00 | PC.PHAR ---
PIERRE ROJAS FAXING CURRENT MED LIST 9AM 11/23/23
[2023-11-23] MEDS: clopidogrel 75 mg Tablet PO (09:03)
[2023-11-23] MEDS: apixaban 5 mg Tablet PO (09:03)
[2023-11-23] MEDS: atorvastatin 40 mg Tablet PO (09:03)
[2023-11-23] MEDS: pantoprazole 40 mg SDV IVP ×2 (09:03→17:59)
[2023-11-23] MEDS: sennosides-docusate Tablet 1 TAB PO (09:03)
[2023-11-23] MEDS: amiodarone 200 mg Tablet PO (09:03)
--- NOTE | 2023-11-23 09:47 | USCV_ITS ---
Akil Velasco Age: 53 Gender: M : 1970 Exam Date: 11/23/2023 16:51 Ordering Phys: Frederick Barclay MD Technologist: [place] [facility]: shock BP: / HR: Rhythm: Sinus Technical Quality: Adequate MEASUREMENTS (Male / Female) Normal Values 2D ECHO LVOT Diameter 2.3 cm LV Ejection Fraction MOD 2C 44.7 % LV Ejection Fraction 2C AL 44.6 % LA Diameter 4.8 cm RA Systolic Volume 4C AL 65.8 ml RA Systolic Volume 4C MOD 62.2 ml LA Sys Volume AL 106.6 cm cubed Aorta at Sinotubular Diameter 2.4 cm IVC Diameter 3.2 cm M-MODE LA Ao Ratio MM 1.8 AV Cusp Separation MM 1.5 cm FINDINGS Left Ventricle Normal left ventricular size and systolic function, EF 55%. Moderate concentric ventricular hypertrophy Right Ventricle Not visualized well Right Atrium Mildly dilated Left Atrium Moderately increased left atrial size. Mitral Valve Moderate mitral annular calcification. Aortic Valve Mild aortic valve calcification. Tricuspid Valve No gross abnormalities noted. Moderate annular calcification Pulmonic Valve Pulmonic valve not well visualized. Pericardium No pericardial effusion. Aorta Normal aortic annulus size. IVC Dilated IVC. CONCLUSIONS Normal left ventricular size and systolic function, EF 55%. Moderate concentric ventricular hypertrophy. Moderately increased left atrial size. Mildly dilated right atrium Moderate mitral annular calcification. There is no pericardial effusion. No intracardiac masses Compared to the previous study from 11/05/2023, there may not be significant change. Dr Shirin Kendrick MD [facility] (Electronically Signed) Final Date: 23 November 2023 18:59 S
--- NOTE | 2023-11-23 09:48 | USCV_ITS ---
Rod Akil Age: 53 Gender: M : 1970 Exam Date: 11/23/2023 15:43 Ordering Phys: Frederick Barclay MD Technologist: CT Exam Location: [facility] [place]_ Indication: swelling PROCEDURES: Venous duplex imaging was performed in bilateral lower extremities. Bilaterally, the common femoral, superficial femoral, profunda femoral, popliteal, posterior tibial, greater saphenous veins, and the peroneal trunk were identified and interrogated in the standard fashion. These veins were found to be easily compressible with spontaneous blood flow. No evidence of insufficiency or thrombus noted. FINDINGS: Normal 2-D Doppler and augmentation and compressibility throughout the lower extremity venous structures. Additional imaging through the proximal calf veins also reveals no thrombus. Limited evaluation of the greater saphenous vein is patent with no thrombus. BKA, left. CONCLUSIONS No DVT bilateral lower extremities. Dr. Lynn Holt DO (Electronically Signed) Final Date: 23 November 2023 16:14 S
--- NOTE | 2023-11-23 10:00 | PC.NURSE ---
See VS record in chart for VS while blood infusing
[2023-11-23] MEDS: magnesium sulfate premix 1 GM/100 ML PIGGYBACK IV (10:51)
[2023-11-23] MEDS: norepinephrine 4 MG/250 ML BAG 22.5 MG IV (12:44)
--- NOTE | 2023-11-23 12:44 | P.CONIM_ITS ---
Providers/Reason For Consult 2 Consulting Physician/Specialty*: [facility]/Nephrology Reason for Consult*: ESRD Attending Physician: Frederick Barclay Primary Care Provider: Sulma Wetzel MD History of Present Illness History of Present Illness Akil Velasco is a 53 year old male Patient is a 53-year-old male with past medical history of coronary artery disease with stents, end-stage renal disease, hypertension, diabetes, diabetic foot ulcers, history of A-fib was sent back from assisted due to chest Discomfort. Patient Was Noted to Be Hypotensive in the Emergency Department. Patient on Dialysis per TTS Schedule. Was Noted to Be Fatigued and Lethargic. In the Emergency Department Vital Signs Are Stable and Lab Data Significant for Hemoglobin of 6.4 Has Metabolic Alkalosis with a CO2 of 37, Creatinine of 3.5 Review of Systems 2 Narrative: NEGATIVE Medications/Allergies Home Medications Medication Instructions Recorded Confirmed Last Taken Type Wheel Chair #1 ea 08/18/21 11/23/23 11/18/23 Rx ropinirole 0.25 mg tablet 0.25 mg PO BEDTIME PRN Restless 08/22/21 11/23/23 11/22/23 History Leg(S) ondansetron HCl 4 mg tablet 4 mg PO Q4H PRN Nausea 04/11/22 11/23/23 11/22/23 History Compression Stockings #1 ea 04/12/22 11/23/23 11/18/23 Rx [place] boot modification #1 ea 07/17/22 11/23/23 11/18/23 Rx oxycodone 5 mg tablet 5 mg PO Q6H PRN Pain 08/16/22 11/23/23 11/22/23 History B-complex with vitamin C 1 cap PO DAILY 10/16/22 11/23/23 11/22/23 History albuterol sulfate 90 mcg/actuation 2 puff inhalation Q6H PRN 10/16/22 11/23/23 11/01/23 History aerosol inhaler Shortness Of Breath diphenhydramine HCl 25 mg tablet 25 mg PO DAILY PRN itching 10/16/22 11/23/23 11/09/23 History (Benadryl Allergy) hydroxyzine HCl 25 mg tablet 25 mg PO Q6H PRN Anxiety 10/16/22 11/23/23 11/09/23 History polyethylene glycol 3350 17 17 g PO BID PRN Constipation 10/16/22 11/23/23 11/01/23 History gram/dose oral powder (Miralax) venlafaxine 75 mg capsule,extended 75 mg PO QAM 10/16/22 11/23/23 11/22/23 History release 24 hr (Effexor XR) Prevalon boot #1 ea 11/21/22 11/23/23 11/18/23 Rx diabetic shoes with 3 heat molded #1 ea 12/15/22 11/23/23 11/18/23 Rx insoles gabapentin 300 mg capsule 300 mg PO TID PRN NERVE PAIN 01/02/23 11/23/23 11/22/23 History vit B,C-folic ac 800 mcg-zinc 12.5 1 tab PO DAILY 05/07/23 11/23/23 11/22/23 History mg-selen-D3 2,000 unit-vit E tablet (RenaPlex-D) atorvastatin 80 mg tablet 80 mg PO DAILY 07/02/23 11/23/23 11/22/23 History clopidogrel 75 mg tablet 75 mg PO DAILY 07/02/23 11/23/23 11/22/23 History pantoprazole 40 mg tablet,delayed 40 mg PO DAILY 07/02/23 11/23/23 11/22/23 History release mirtazapine 30 mg disintegrating 30 mg PO DAILY 07/27/23 11/23/23 11/18/23 History tablet nitroglycerin 0.1 mg/hr 1 patch transdermal DAILY 07/27/23 11/23/23 11/22/23 History transdermal 24 hour patch arginine 7 gram-glutam 7 1 packet PO BID 10/16/23 11/23/23 11/22/23 History gram-CaHMB 1.5 eplu-lvwta-xn-min oral pwd pkt (Mehdi (with collagen)) sodium zirconium cyclosilicate 10 See Rx Instructions .Route .COMPLEX 10/16/23 11/23/23 11/18/23 History gram oral powder packet (Lokelma) trazodone 50 mg tablet 50 mg PO BEDTIME 10/16/23 11/23/23 11/23/23 History brexpiprazole 0.5 mg tablet 0.5 mg PO QAM 11/05/23 11/23/23 11/18/23 History (Rexulti) cilostazol 50 mg tablet 50 mg PO DAILY 11/05/23 11/23/23 11/18/23 History nitroglycerin 0.4 mg sublingual 0.4 mg buccal DAILY PRN Chest Pain 11/05/23 11/23/23 11/22/23 History tablet apixaban 5 mg tablet (Eliquis) 5 mg PO BID@0900,2100 30 days #30 11/16/23 11/23/23 11/22/23 Rx tabs levothyroxine 25 mcg tablet 25 mcg PO QAM 30 days #30 tabs 11/16/23 11/23/23 11/18/23 Rx amiodarone 200 mg tablet (Pacerone) 200 mg PO BID 11/19/23 11/23/23 11/22/23 History amiodarone 200 mg tablet (Pacerone) 200 mg PO DAILY 11/19/23 11/23/23 11/22/23 History Allergies Allergy/AdvReac Type Severity Reaction Status Date / Time vancomycin Allergy Unknown ADR-Itching Verified 11/02/23 10:13 ,Rash linezolid [From Zyvox] Allergy tendonitis Verified 11/02/23 10:13 ciprofloxacin [From Cipro] AdvReac Severe Tendonitis Verified 11/02/23 10:13 dextrose 5 % in water Allergy Unknown tendonitis Uncoded 11/02/23 10:13 Current Medications Generic Name Dose Route Start Last Admin Trade Name Freq PRN Reason Stop Dose Admin Amiodarone HCl 200 mg 11/23/23 09:00 11/23/23 09:03 Amiodarone 200 Mg Tablet PO 200 mg DAILY [place] Administration Apixaban 5 mg 11/23/23 09:00 11/23/23 09:03 Apixaban 5 Mg Tablet PO 5 mg BID [place] Administration Atorvastatin Calcium 40 mg 11/23/23 09:00 11/23/23 09:03 Atorvastatin 40 Mg Tablet PO 40 mg DAILY [place] Administration Clopidogrel Bisulfate 75 mg 11/23/23 09:00 11/23/23 09:03 Clopidogrel 75 Mg Tablet PO 75 mg DAILY [place] Administration norepinephrine 4 mg in 250 mls @ 0 mls/hr 11/22/23 21:03 11/23/23 06:12 Levophed IV 6 mcg/min .Q0M [place] 22.5 mls/hr Titration Protocol Per Protocol Levothyroxine Sodium 25 mcg 11/23/23 06:00 11/23/23 06:11 Levothyroxine 25 Mcg Tablet PO 25 mcg QAM [place] Administration Morphine Sulfate 15 mg 11/22/23 21:03 11/23/23 06:14 Morphine Ir 15 Mg Tablet PO 15 mg Q6H PRN Administration MODERATE PAIN Non-Formulary Medication 1 tab 11/23/23 09:00 11/23/23 08:53 Vit B,N-Zv-Rkrb-Selen-Vit D3-E [Renaplex-D] PO Not Given DAILY [place] Ondansetron HCl 4 mg 11/22/23 21:03 11/22/23 21:20 Ondansetron 2 Mg/Ml Sdv 2 Ml IVP 4 mg Q6H PRN Administration NAUSEA AND VOMITING Pantoprazole Sodium 40 mg 11/23/23 09:00 11/23/23 09:03 Pantoprazole 40 Mg Sdv IVP 40 mg BID [place] Administration Senna/Docusate Sodium 1 tab 11/23/23 09:00 11/23/23 09:03 Sennosides-Docusate Tablet PO 1 tab DAILY [place] Administration Sodium Chloride 50 ml 11/22/23 19:53 11/23/23 01:35 Sodium Chloride 0.9% 100 Ml Bag IV 11/23/23 19:53 50 ml PRN PRN Administration Blood transfusion prime and flush Trazodone HCl 50 mg 11/22/23 21:03 11/22/23 21:14 Trazodone 50 Mg Tablet PO 50 mg BEDTIME [place] Administration PFSH Acute 2 PFSH: Medical History Uremia Chronic osteomyelitis Type 2 diabetes mellitus 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, limited to breakdown of skin Chronic osteomyelitis of right foot Foot osteomyelitis, right Osteomyelitis Cellulitis Necrosis of surgical wound Foot osteomyelitis, left Hypovolemic shock Anemia of chronic disease Ulcer of sacral region, stage 1 Gas gangrene Acquired equinovarus deformity of left foot Pre-ulcerative calluses Xerosis of skin 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 Cellulitis Diabetes BMI 50.0-59.9, adult Diabetic foot ulcers Fracture, thoracic vertebra T7-T8 Osteomyelitis Non-pressure chronic ulcer of other part of right foot with necrosis of muscle Chronic venous insufficiency Chronic dysfunction of both eustachian tubes Lung nodule Hypoglycemia unawareness associated with type 2 diabetes mellitus Chronic ulcer of left foot with fat layer exposed Non-healing ulcer of right foot with fat layer exposed Vitamin D deficiency First degree heart block COPD (chronic obstructive pulmonary disease) Hypertension Urinary retention History of renal cell carcinoma Morbid obesity with BMI of 40.0-44.9, adult Cardiac arrest Anemia Pneumonia due to 2019-nCoV (~07/2020) Renal cell carcinoma History bilateral renal cell carcinoma 2007 then recurrence on the contralateral side 2011. No recurrence for long-term follow-up with some suspicion on CT scan April 2020. CHF (congestive heart failure), NYHA class III Chronic respiratory failure with hypoxia and hypercapnia Obesity hypoventilation syndrome Metabolic alkalosis Accelerated hypertension Restrictive lung disease Obstructive sleep apnea non compliant with home bipap/cpap Fracture of fourth metatarsal bone of left foot Type 2 diabetes mellitus with diabetic polyneuropathy PVD (peripheral vascular disease) Fracture of fifth metatarsal bone of left foot Neuropathy Surgical History Status post below-knee amputation of left lower extremity History of left below knee amputation History of cataract surgery H/O wisdom tooth extraction Hx of lymph node excision H/O partial nephrectomy bilateral Family History Father , at age 65 Diabetes Cancer Metastatic prostate cancer to liver Mother , at age 72 Diabetes Grandfather Diabetes Cancer Other Anemia Hyperlipidemia Social History Smoking and tobacco/nicotine status: never used tobacco/nicotine Second hand smoke exposure: Yes Alcohol intake: current Alcohol intake frequency: holidays/special occasions only Substance/Drug Use: never Lives independently: Yes Household members: spouse Housing: House Marital status: service: No Current occupational status: retired Pets and animals: Yes Do you think of yourself as: Straight/Heterosexual Current gender identity: Male Vitals/I&O/Wt Last Vital Signs Temp 98.6 F 11/23/23 09:45 Pulse 82 11/23/23 10:25 Resp 10 L 11/23/23 10:25 BP 105/64 11/23/23 10:25 Pulse Ox 100 11/23/23 10:25 O2 Del Method Nasal Cannula 11/23/23 07:42 O2 Flow Rate 3 11/23/23 07:42 11/22/23 11/23/23 11/23/23 22:59 06:59 14:59 Intake Total 100 / 100 335.25 / 435.25 830 / 830 Balance 100 / 100 335.25 / 435.25 830 / 830 Weight last 48 hrs Weight 115.865 kg Weight 115.865 kg Weight 117.934 kg Physical Exam 2 Const: OTHER: awake , alert no distress S1S2 RRR per report Lungs clear per report no edema Data 11/23/23 04:15 11/23/23 04:15 A&P Assessment and plan (1) End-stage renal disease on hemodialysis: Plan 1 End-Stage Renal Disease on Hemodialysis per TTS Schedule, No Acute Indication for Dialysis Today Will Plan on Dialysis Tomorrow 2. Hypovolemic Shock in the Setting of Anemia, Hypovolemia Plan for 1 Unit PRBCs and IV Albumin. 3. History of A-Fib 4. Diabetes Patient evaluated using audiovisual cart. Time spent 40-minutes Consult Attestations 2 Medical Necessity Statement: per medicine Coding Level of Care Code Acute Code for Chg Fwd Diagnoses End-stage renal disease on hemodialysis N18.6; Z99.2
--- NOTE | 2023-11-23 13:20 | XR_ITS ---
WS: [id number] PORTABLE CHEST x 2 HISTORY: Post PICC insertion COMPARISON: 11/22/2023 RIGHT PICC line is been placed. Initial placement needed to be retracted 5 to 6 cm. Follow-up imaging reveals PICC line is in good position near the cavoatrial junction. Low lung volumes. Mild fluid overload and pulmonary congestion. Cardiac size: Mildly enlarged cardiac silhouette. Mediastinum/Aorta: Mild atherosclerosis aorta. No osseous abnormality seen. IMPRESSION: Satisfactory placement right-sided PICC line.
--- NOTE | 2023-11-23 14:37 | PC.SOCIAL ---
Pg 2 IMM Explained to pt Pg 2 IMM. No questions voiced. Provided pt a copy. Initialed, dated, & timed a copy & placed in chart.
--- NOTE | 2023-11-23 14:45 | PICC.NOTE ---
Triple lumen PICC placed to right basilic vein. Referred to vascular access nurse for PICC placement due to use of IV vasopressors and poor access. Risks and benefits discussed and informed consent obtained from patient. Right arm assessed with right baslic vein measuring 3.5 mm, straight, and apparent best choice for placement. Using sterile technique and MST,right basilic vein accessed x 1 stick. Mid-arm circumference measured 10 cm from right AC 25 cm. Trimmed cath 38 cm with 0 cm external length noted. CXR shows tip in distal SVC, cavoatrial junction, in good position for use per radiologist. Line secured with stat-lock. Insertion site covered with Biopatch and TSM. Report given to bedside nurse, GILMER Cunha.
--- NOTE | 2023-11-23 17:33 | PM.CONSULT ---
Providers/Reason For Consult Consulting Physician/Specialty*: Axel Kendrick MD/cardiology Reason for Consult*: Patient with chest pain and elevated troponin T, recent PCI Requesting Physician: Dr. Barclay Attending Physician: Frederick Barclay Primary Care Provider: Sulma Wetzel MD History of Present Illness History of Present Illness Akil Velasco is a 53 year old male with a extensive history of coronary artery disease, status post recent discharge from this hospital where he was admitted with chest pain and cardiac arrest, now is re admitted to the hospital through the emergency room where he presented with complaints of extreme weakness and near syncopal episodes. He was found to be severely anemic. Also was found to have elevated troponin T. His baseline troponin T was 300 with a 2-hour delta of 10 and a 6-hour delta of 27. Cardiology consult is requested for further cardiac evaluation recommendations. Patient has an extensive cardiac history. He recently presented to the emergency room with complaints of chest pain. While being in the emergency room, he went into V-fib arrest and underwent cardiac resuscitation. He was subsequently admitted to the hospital. He underwent a cardiac catheterization by Dr. Arguelles on the 11 of this month. He was found to have a high-grade in-stent stenosis in the mid LAD. The stent in the obtuse marginal 1 branch of the circumflex artery was found to be patent with some possible haziness. The right coronary artery was found to have only mild disease. Patient underwent angioplasty of the in-stent lesion in the mid LAD. He had a severe residual stenosis with a HEATHER-3 flow. The patient was getting hemodialysis in the hospital. He gets hemodialysis 3 times a week for the end-stage renal disease. He sustained some rib fractures with the CPR. He was sent to the snf for recuperation. According to the patient, he was getting extremely weak and tired following his dialysis sessions. Yesterday the symptoms are very pronounced. As he went back to snf, he was getting extremely weak and felt like he faded out few times while talking to some snf visitors. For these complaints, he was brought to the emergency room. He was found to be severely anemic in the emergency room. He is admitted to hospital for further evaluation management. Patient continues to have the chest wall pain. Yesterday he had some left-sided discomfort lasting for an hour or so. This patient was placed on Eliquis and Plavix in the hospital for his atrial fibrillation and recent coronary intervention. He denies any mehran hematemesis or melena. This patient also is known to have some liver disease and is getting large-volume paracentesis every other week. Lately he seems to be getting almost every week. The most recent 1 was last Sunday where 8.4 L of ascites fluid was drained off. This patient known to have multiple other medical problems including type 2 diabetes, diabetic neuropathy, orthostatic hypotension , dyslipidemia recurrent osteomyelitis, peripheral arterial disease, chronic venous stasis, bilateral partial nephrectomy, history of renal current cancer, COPD/obstructive sleep apnea, congestive heart failure, chronic anemia, morbid obesity, questionable compliance to medications etc. Review of Systems Narrative: CONSTITUTIONAL: Feeling of generalized weakness/lethargy as mentioned above. EYES: No blurring of vision or other visual disturbances lately. ENT: No hoarseness of voice, auditory disturbances or sore throat. CARDIOVASCULAR: As mentioned above. RESPIRATORY: No significant cough. GASTROINTESTINAL: No hematemesis.? Melena. GENITOURINARY: On hemodialysis 3 times a week INTEGUMENTARY: No skin rashes or history of skin cancer. NEURO: No transient ischemic attacks or amaurosis. PSYCHIATRIC: No history of psychosis or major depression. HEMATOLOGIC: Chronic anemia ENDOCRINE: No history of polyuria or polydipsia. MUSCULOSKELETAL: No recent joint pain or swelling. ALLERGY/IMMUNOLOGY: As mentioned above. Medications/Allergies Home Medications Medication Instructions Recorded Confirmed Last Taken Type Wheel Chair #1 ea 08/18/21 11/23/23 11/18/23 Rx ropinirole 0.25 mg tablet 0.25 mg PO BEDTIME PRN Restless 08/22/21 11/23/23 11/22/23 History Leg(S) ondansetron HCl 4 mg tablet 4 mg PO Q4H PRN Nausea 04/11/22 11/23/23 11/22/23 History Compression Stockings #1 ea 04/12/22 11/23/23 11/18/23 Rx tribe boot modification #1 ea 07/17/22 11/23/23 11/18/23 Rx oxycodone 5 mg tablet 5 mg PO Q6H PRN Pain 08/16/22 11/23/23 11/22/23 History B-complex with vitamin C 1 cap PO DAILY 10/16/22 11/23/23 11/22/23 History albuterol sulfate 90 mcg/actuation 2 puff inhalation Q6H PRN 10/16/22 11/23/23 11/01/23 History aerosol inhaler Shortness Of Breath diphenhydramine HCl 25 mg tablet 25 mg PO DAILY PRN itching 10/16/22 11/23/23 11/09/23 History (Benadryl Allergy) hydroxyzine HCl 25 mg tablet 25 mg PO Q6H PRN Anxiety 10/16/22 11/23/23 11/09/23 History polyethylene glycol 3350 17 17 g PO BID PRN Constipation 10/16/22 11/23/23 11/01/23 History gram/dose oral powder (Miralax) venlafaxine 75 mg capsule,extended 75 mg PO QAM 10/16/22 11/23/23 11/22/23 History release 24 hr (Effexor XR) Prevalon boot #1 ea 11/21/22 11/23/23 11/18/23 Rx diabetic shoes with 3 heat molded #1 ea 12/15/22 11/23/23 11/18/23 Rx insoles gabapentin 300 mg capsule 300 mg PO TID PRN NERVE PAIN 01/02/23 11/23/23 11/22/23 History vit B,C-folic ac 800 mcg-zinc 12.5 1 tab PO DAILY 05/07/23 11/23/23 11/22/23 History mg-selen-D3 2,000 unit-vit E tablet (RenaPlex-D) atorvastatin 80 mg tablet 80 mg PO DAILY 07/02/23 11/23/23 11/22/23 History clopidogrel 75 mg tablet 75 mg PO DAILY 07/02/23 11/23/23 11/22/23 History pantoprazole 40 mg tablet,delayed 40 mg PO DAILY 07/02/23 11/23/23 11/22/23 History release mirtazapine 30 mg disintegrating 30 mg PO DAILY 07/27/23 11/23/23 11/18/23 History tablet nitroglycerin 0.1 mg/hr 1 patch transdermal DAILY 07/27/23 11/23/23 11/22/23 History transdermal 24 hour patch arginine 7 gram-glutam 7 1 packet PO BID 10/16/23 11/23/2311/21/24 History gram-CaHMB 1.5 orwj-ncxrg-gf-min oral pwd pkt (Mehdi (with collagen)) sodium zirconium cyclosilicate 10 See Rx Instructions .Route .COMPLEX 10/16/23 11/23/23 11/18/23 History gram oral powder packet (Lokelma) trazodone 50 mg tablet 50 mg PO BEDTIME 10/16/23 11/23/23 11/23/23 History brexpiprazole 0.5 mg tablet 0.5 mg PO QAM 11/05/23 11/23/23 11/18/23 History (Rexulti) cilostazol 50 mg tablet 50 mg PO DAILY 11/05/23 11/23/23 11/18/23 History nitroglycerin 0.4 mg sublingual 0.4 mg buccal DAILY PRN Chest Pain 11/05/23 11/23/23 11/22/23 History tablet apixaban 5 mg tablet (Eliquis) 5 mg PO BID@0900,2100 30 days #30 11/16/23 11/23/23 11/22/23 Rx tabs levothyroxine 25 mcg tablet 25 mcg PO QAM 30 days #30 tabs 11/16/23 11/23/23 11/18/23 Rx amiodarone 200 mg tablet (Pacerone) 200 mg PO BID 11/19/23 11/23/23 11/22/23 History amiodarone 200 mg tablet (Pacerone) 200 mg PO DAILY 11/19/23 11/23/23 11/22/23 History Allergies Allergy/AdvReac Type Severity Reaction Status Date / Time vancomycin Allergy Unknown ADR-Itching Verified 11/02/23 10:13 ,Rash linezolid [From Zyvox] Allergy tendonitis Verified 11/02/23 10:13 ciprofloxacin [From Cipro] AdvReac Severe Tendonitis Verified 11/02/23 10:13 dextrose 5 % in water Allergy Unknown tendonitis Uncoded 11/02/23 10:13 Current Medications Generic Name Dose Route Start Last Admin Trade Name Freq PRN Reason Stop Dose Admin Amiodarone HCl 200 mg 11/23/23 09:00 11/23/23 09:03 Amiodarone 200 Mg Tablet PO 200 mg DAILY [place] Administration Apixaban 5 mg 11/23/23 09:00 11/23/23 09:03 Apixaban 5 Mg Tablet PO 5 mg BID [place] Administration Atorvastatin Calcium 40 mg 11/23/23 09:00 11/23/23 09:03 Atorvastatin 40 Mg Tablet PO 40 mg DAILY [place] Administration Clopidogrel Bisulfate 75 mg 11/23/23 09:00 11/23/23 09:03 Clopidogrel 75 Mg Tablet PO 75 mg DAILY [place] Administration norepinephrine 4 mg in 250 mls @ 0 mls/hr 11/22/23 21:03 11/23/23 16:24 Levophed IV 8 mcg/min .Q0M [place] 30 mls/hr Titration Protocol Per Protocol Levothyroxine Sodium 25 mcg 11/23/23 06:00 11/23/23 06:11 Levothyroxine 25 Mcg Tablet PO 25 mcg QAM [place] Administration Morphine Sulfate 15 mg 11/22/23 21:03 11/23/23 15:14 Morphine Ir 15 Mg Tablet PO 15 mg Q6H PRN Administration MODERATE PAIN Non-Formulary Medication 1 tab 11/23/23 09:00 11/23/23 08:53 Vit B,O-Fa-Oxpf-Selen-Vit D3-E [Renaplex-D] PO Not Given DAILY [place] Ondansetron HCl 4 mg 11/22/23 21:03 11/22/23 21:20 Ondansetron 2 Mg/Ml Sdv 2 Ml IVP 4 mg Q6H PRN Administration NAUSEA AND VOMITING Pantoprazole Sodium 40 mg 11/23/23 09:00 11/23/23 09:03 Pantoprazole 40 Mg Sdv IVP 40 mg BID [place] Administration Senna/Docusate Sodium 1 tab 11/23/23 09:00 11/23/23 09:03 Sennosides-Docusate Tablet PO 1 tab DAILY [place] Administration Sodium Chloride 50 ml 11/22/23 19:53 11/23/23 01:35 Sodium Chloride 0.9% 100 Ml Bag IV 11/23/23 19:53 50 ml PRN PRN Administration Blood transfusion prime and flush Trazodone HCl 50 mg 11/22/23 21:03 11/22/23 21:14 Trazodone 50 Mg Tablet PO 50 mg BEDTIME [place] Administration PFSH Acute PFSH: Medical History Uremia Chronic osteomyelitis Type 2 diabetes mellitus 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, limited to breakdown of skin Chronic osteomyelitis of right foot Foot osteomyelitis, right Osteomyelitis Cellulitis Necrosis of surgical wound Foot osteomyelitis, left Hypovolemic shock Anemia of chronic disease Ulcer of sacral region, stage 1 Gas gangrene Acquired equinovarus deformity of left foot Pre-ulcerative calluses Xerosis of skin 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 Cellulitis Diabetes BMI 50.0-59.9, adult Diabetic foot ulcers Fracture, thoracic vertebra T7-T8 Osteomyelitis Non-pressure chronic ulcer of other part of right foot with necrosis of muscle Chronic venous insufficiency Chronic dysfunction of both eustachian tubes Lung nodule Hypoglycemia unawareness associated with type 2 diabetes mellitus Chronic ulcer of left foot with fat layer exposed Non-healing ulcer of right foot with fat layer exposed Vitamin D deficiency First degree heart block COPD (chronic obstructive pulmonary disease) Hypertension Urinary retention History of renal cell carcinoma Morbid obesity with BMI of 40.0-44.9, adult Cardiac arrest Anemia Pneumonia due to 2019-nCoV (~07/2020) Renal cell carcinoma History bilateral renal cell carcinoma 2007 then recurrence on the contralateral side 2011. No recurrence for long-term follow-up with some suspicion on CT scan April 2020. CHF (congestive heart failure), NYHA class III Chronic respiratory failure with hypoxia and hypercapnia Obesity hypoventilation syndrome Metabolic alkalosis Accelerated hypertension Restrictive lung disease Obstructive sleep apnea non compliant with home bipap/cpap Fracture of fourth metatarsal bone of left foot Type 2 diabetes mellitus with diabetic polyneuropathy PVD (peripheral vascular disease) Fracture of fifth metatarsal bone of left foot Neuropathy Surgical History Status post below-knee amputation of left lower extremity History of left below knee amputation History of cataract surgery H/O wisdom tooth extraction Hx of lymph node excision H/O partial nephrectomy bilateral Family History Father , at age 65 Diabetes Cancer Metastatic prostate cancer to liver Mother , at age 72 Diabetes Grandfather Diabetes Cancer Other Anemia Hyperlipidemia Social History Smoking and tobacco/nicotine status: never used tobacco/nicotine Second hand smoke exposure: Yes Alcohol intake: current Alcohol intake frequency: holidays/special occasions only Substance/Drug Use: never Lives independently: Yes Household members: spouse Housing: House Marital status: service: No Current occupational status: retired Pets and animals: Yes Do you think of yourself as: Straight/Heterosexual Current gender identity: Male Vitals/I&O/Wt Last Vital Signs Temp 97.9 F 11/23/23 15:35 Pulse 81 11/23/23 16:50 Resp 21 H 11/23/23 16:50 BP 102/39 11/23/23 16:50 Pulse Ox 86 L 11/23/23 16:50 O2 Del Method Nasal Cannula 11/23/23 07:42 O2 Flow Rate 3 11/23/23 07:42 11/23/23 11/23/23 11/23/23 06:59 14:59 22:59 Intake Total 335.25 / 435.25 1457 / 1457 682.5 / 2139.5 Balance 335.25 / 435.25 1457 / 1457 682.5 / 2139.5 Weight last 48 hrs Weight 255 lb 7 oz Weight 255 lb 7 oz Weight 260 lb Physical Exam Narrative: GENERAL: The patient is alert and oriented times three. Not in any acute distress. Obese HEENT: Moderate pallor with no icterus or lymphadenopathy.Oral cavity: There are no mucous membrane lesions. NECK: Trachea appears to be central. No masses noted. No JVD or thyromegaly appreciated. RESPIRATORY: Chest is symmetrical. No intercostals muscle retraction or any accessory muscle activation. There is no chest wall tenderness. Breath sounds are heard bilaterally. No rales or rhonchi heard. No evidence of any consolidation. BREASTS: Deferred. HEART: The heart sounds are normal. No S3 or S4. Ejection systolic murmur grade 3 or 6 in the aortic area. No diastolic murmurs. No pericardial rub ABDOMEN: Moderately distended and tense. Umbilical hernia present. : Deferred. RECTAL: Deferred. LYMPHATIC: No lymphadenopathy noted in the neck. EXTREMITIES: Below-knee amputation on the left side. The right leg has features of chronic venous stasis, stasis dermatitis and some heel ulcers. MUSCULOSKELETAL: No acute joint deformities or swelling SKIN: There are no significant rashes or ecchymosis NEUROPSYCHIATRIC: The patient is alert and oriented x3. Appears to be in a good mood. No tremors or rigidity noted. Data 11/24/23 06:05 11/24/23 06:05 Other Labs: Laboratory Last Values WBC 5.21 10^3/uL (3.29-11.43) 11/23/23 04:15 RBC 2.39 10^6/uL (3.85-5.65) L 11/23/23 04:15 Hgb 5.80 g/dL (11.27-16.99) L* 11/23/23 13:06 Hct 22.7 % (37-53) L 11/23/23 04:15 MCV 95.0 fl (82-101) 11/23/23 04:15 MCH 27.6 pg (27-33) 11/23/23 04:15 MCHC 29.1 g/dL (30-55) L 11/23/23 04:15 RDW 20.4 % (12.1-15.1) H 11/23/23 04:15 Plt Count 148 10^3/cmm (157-399) L 11/23/23 04:15 MPV 10.7 fL (7.4-10.4) H 11/23/23 04:15 Neut % (Auto) 57.8 % 11/23/23 04:15 Lymph % (Auto) 19.0 % 11/23/23 04:15 [place] % (Auto) 10.7 % 11/23/23 04:15 Eos % (Auto) 10.9 % 11/23/23 04:15 Baso % (Auto) 1.2 % 11/23/23 04:15 Neut # (Auto) 3.01 10^3/uL (1.8-7.7) 11/23/23 04:15 Lymph # (Auto) 1.0 10^3/uL (0.8-4.8) 11/23/23 04:15 [place] # (Auto) 0.6 10^3/uL (0.2-0.9) 11/23/23 04:15 Eos # (Auto) 0.6 10^3/uL (0.0-0.8) 11/23/23 04:15 Baso # (Auto) 0.1 10^3/uL (0.0-0.1) 11/23/23 04:15 Nucleated RBC % (auto) 0.4 % 11/23/23 04:15 Nucleated RBCs # 0.0 /100WBC 11/23/23 04:15 D-Dimer 12.02 ug/mLFEU (0-0.59) H 11/22/23 19:06 Sodium 133 mmol/L (136-145) L 11/23/23 04:15 Potassium 3.6 mmol/L (3.5-5.1) 11/23/23 04:15 Chloride 89 mmol/L (98-107) L 11/23/23 04:15 Carbon Dioxide 37 mmol/L (22-29) H 11/23/23 04:15 Anion Gap 10.6 (5-19) 11/23/23 04:15 BUN 25 mg/dL (6-20) H 11/23/23 04:15 Creatinine 3.8 mg/dL (0.7-1.2) H 11/23/23 04:15 GFR Calculation 16.7 mL/min (90-130) L 11/23/23 04:15 Glucose 171 mg/dL (65-115) H 11/23/23 04:15 Calculated Osmolality 284 mOsm/kg (285-295) L 11/23/23 04:15 Calcium 6.9 mg/dL (8.5-10.5) L 11/23/23 04:15 Phosphorus 4.2 mg/dL (2.5-4.5) 11/23/23 04:15 Magnesium 1.7 mg/dL (1.7-2.3) 11/23/23 04:15 Total Bilirubin 0.3 mg/dL (0.15-1.2) 11/22/23 19:06 AST 11 U/L (0-40) 11/22/23 19:06 ALT 7 U/L (0-41) 11/22/23 19:06 Alkaline Phosphatase 75 U/L (40-130) 11/22/23 19:06 Troponin T Baseline 301 ng/L (0-15) H* 11/22/23 19:06 Troponin T 120 Minute 311.1 ng/L (0-15) H 11/22/23 21:11 Delta Troponin T 10.1 ABS# (0-10) H* 11/22/23 21:11 Troponin T Hi Sens 6Hr 328.0 ng/L (0-15) H 11/23/23 02:36 Troponin T Hi Sens 6Hr Delta 27.0 ng/L (0-12) H* 11/23/23 02:36 Total Protein 5.7 g/dL (6.6-8.7) L 11/22/23 19:06 Albumin 2.8 g/dL (3.5-5.2) L 11/22/23 19:06 Globulin 2.9 g/dL (1.3-4.6) 11/22/23 19:06 Blood Type A Positive 11/22/23 20:09 Rho(D) Type Rh positive 11/22/23 20:09 Antibody Screen Negative 11/22/23 20:09 Crossmatch See Detail 11/22/23 20:09 Other data: The EKG revealed Normal sinus rhythm with a right bundle branch block pattern. Poor R wave progression. Right axis deviation. Nonspecific st-T wave changes. Compared to the previous EKG, there may not be significant change The cardiac catheterization findings * * Left Main has no significant disease. Patent prior stent. * Circumflex has patent prior stent. OM1 has patent prior stent with somepossible haziness. Imaging quality is not good on angiogram.. * Right Coronary Artery has no significant disease. * Proximal to mid Left Anterior Descending: Prior stent has 70% in-stentrestenosis.. * Coronary angiography shows right dominance. PCI Status: Urgent PCI Indication: Other Interventional Findings * Procedure detail: We engaged left main artery with XB 3.5 guide catheter.A 0.014 run-through guidewire was used to cross the severe in-stent restenosisof proximal to mid LAD stent. We attempted to cross with IVUS catheter however it did not cross the stenosis. We then proceeded with dilation of with priorstent in the LAD with 2.75 x 15 mm NC balloon at high pressure. It improvedISR. Imaging quality of the study was not good. There was possible haziness in OM 1 stent proximally. No severe stenosis was seen. However we proceeded withballooning it with 2.75 x 15 mm NC balloon. At this time final angiogram wasperformed that showed good flow in all vessels. Guidewire and guide catheter were removed. Patient left the Aids Nurse in a stable condition.. * Mid Left Anterior Descendin% stenosis treated with a MDT NC EUPHORARX 2.06W73OB BALLOON. 0% residual stenosis, HEATHER: 3 flow. Echocardiogram on 10/17/2023 LV systolic function is normal with EF of 50 to 55%. RV is dilated and moderate to severely hypokinetic. Biatrial dilation Mild mitral regurgitation Moderate to severe aortic stenosis. Mild tricuspid regurgitation Mild pulmonary hypertension IVC is dilated. Accuate comparison with prior echocardiogram not possible because of limited quality images on previous echocardiogram. However finding of moderate to severe aortic stenosis is new. A&P Assessment and plan (1) Elevated troponin: Most likely related to type II [place]. Possibility of an acute coronary event cannot be excluded but my clinical suspicion may be low. (2) Atherosclerotic heart disease of [place] coronary artery with other forms of angina pectoris: Patient has significant chest wall pain, possibly from the rib fracture. It seems to be slowly improving. (3) Aortic stenosis: Patient has mild aortic valve stenosis. He may not require any specific intervention at this point. Qualifiers: Cardiac valve disease etiology: nonrheumatic Qualified Code(s): I35.0 - Nonrheumatic aortic (valve) stenosis (4) End-stage renal disease on hemodialysis: Patient may continue on the hemodialysis. (5) Anemia requiring transfusions: The etiology is still not clear. I agree with the GI workup to further evaluate the source of bleeding (6) Type 2 diabetes mellitus: Management as per the primary Qualifiers: Chronic kidney disease stage: on chronic dialysis Diabetes mellitus complication detail: with chronic kidney disease Diabetes mellitus complication status: with kidney complications Diabetes mellitus terminal makeup operator insulin use: without terminal makeup operator use Qualified Code(s): E11.22 - Type 2 diabetes mellitus with diabetic chronic kidney disease; N18.6 - End stage renal disease; Z99.2 - Dependence on renal dialysis Plan Based on the patient's clinical progress, further recommendations will be made. Thank you for the opportunity to evaluate this patient and make these recommendations Coding Level of Care Code 81606 Diagnoses Elevated troponin R79.89 Atherosclerotic heart disease of [place] coronary artery with other forms of angina pectoris I25.118 Nonrheumatic aortic valve stenosis I35.0 Cardiac valve disease etiology: nonrheumatic End-stage renal disease on hemodialysis N18.6; Z99.2 Anemia requiring transfusions D64.9 Type 2 diabetes mellitus with chronic kidney disease on chronic dialysis, without long-term current use of insulin E11.22; N18.6; Z99.2 Chronic kidney disease stage: on chronic dialysis Diabetes mellitus complication detail: with chronic kidney disease Diabetes mellitus complication status: with kidney complications Diabetes mellitus terminal makeup operator insulin use: without terminal makeup operator use
--- NOTE | 2023-11-23 17:52 | CTR_ITS ---
PROCEDURE INFORMATION: Exam: CTA Abdomen and Pelvis With Contrast Exam date and time: 11/23/2023 7:20 PM Age: 53 years old Clinical indication: Patient HX: Acute anemia with hgb of 5.8. History of renal cancer. ; Additional info: Rapid blood loss anemia TECHNIQUE: Imaging protocol: Computed tomographic angiography of the abdomen and pelvis with contrast. Exam focused on the arteries. 3D rendering (Not supervised by radiologist): MIP and/or 3D reconstructed images were created by the technologist. Radiation optimization: All CT scans at this facility use at least one of these dose optimization techniques: automated exposure control; mA and/or kV adjustment per patient size (includes targeted exams where dose is matched to clinical indication); or iterative reconstruction. Contrast material: OMNI 350; Contrast volume: 100 ml; Contrast route: INTRAVENOUS (IV); COMPARISON: [place] [id number] 11/07/2023 5:56 PM RADIATION DOSE METRICS: Total DLP (mGy-cm): 1281.19 FINDINGS: Pleural spaces: Small right and trace left pleural effusions with adjacent atelectasis. Heart: Wisx-bk-yruexeij cardiomegaly. Aorta: Atherosclerotic calcifications of the abdominal aorta. No aneurysm, dissection, or intramural hematoma. Celiac trunk and mesenteric arteries: Patent celiac artery. Patent superior mesenteric artery. Patent inferior mesenteric artery. Renal arteries: Bilateral renal arteries appear diminutive. Right iliac arteries: Patent right iliac arterial vasculature. Left iliac arteries: Patent left iliac arterial vasculature. Liver: Nodular liver surface consistent with cirrhosis. Gallbladder and bile ducts: The gallbladder is normal. There is no ductal dilatation. Pancreas: The pancreas is normal. Spleen: Mild splenomegaly. The spleen measures 14.4 cm in length. Adrenal glands: The adrenal glands are normal. Kidneys and ureters: Kidneys are atrophic but otherwise normal. Stomach and bowel: Mild diffuse bowel wall thickening likely related to portal hypertension and mesenteric edema. No evidence of large or small bowel obstruction. Appendix: A normal appendix is not identified. There is no secondary evidence of acute appendicitis. Intraperitoneal space: Hyperdense material layering in the left posterior paracolic gutter and trace amounts layering in the posterior pelvis consistent with blood. Eukshlgg-yq-wluiu volume ascites. Moderate mesenteric edema. No obvious inflammatory change, though evaluation is limited by underlying mesenteric edema. Lymph nodes: Multiple mildly enlarged retroperitoneal, bilateral pelvic sidewall, and bilateral inguinal lymph nodes. Stable. Urinary bladder: The bladder is decompressed and collapsed. No abnormality identified. Reproductive: The prostate is grossly unremarkable. Bones/joints: Stable L1 compression fracture. No acute osseous abnormalities are seen. Soft tissues: Diffuse subcutaneous calcifications again seen. Moderate subcutaneous edema. Gsjkstcq-pz-hqpxn periumbilical hernia containing fat and fluid. Moderate bilateral inguinal hernias containing fat and fluid. Other findings: No evidence of active extravasation to suggest active bleeding. CT/CT angio abdomen pelvis [id number] IMPRESSION: 1. Oygmb-uj-jwpwavpk hyperdense material in the dependent left paracolic gutter and trace hyperdense material in the dependent pelvis likely representing small amounts of blood. No evidence of active extravasation to suggest active bleeding. 2. Odpjfvko-nb-hgncd ascites, increased compared to prior study. 3. Hepatic cirrhosis with evidence of portal hypertension. 4. Other stable findings above.
--- NOTE | 2023-11-23 18:30 | P.CONIM_ITS ---
Providers/Reason For Consult 2 Consulting Physician/Specialty*: Dr. Barclay Reason for Consult*: Acute GI bleeding Attending Physician: Frederick Barclay Primary Care Provider: Sulma Wetzel MD History of Present Illness History of Present Illness Akil Velasco is a 53 year old male with multiple medical comorbidities including history of coronary artery disease requiring stenting and recent cardiac arrest requiring CPR. In addition he has history of end-stage renal disease, peripheral artery disease has a history of left lower extremity below the knee amputation and also has noted to be having liver failure with ascites being managed with serial paracentesis. Patient presented to the hospital with hypokalemia and anemia and he was suspected to have acute anemia due to blood loss. I have been consulted for evaluation for possible GI bleeding as patient has history of on and off dark stools. Denies any nausea vomiting abdominal pain no significant bloody stools since his hospital stay. Review of Systems 2 General: Reports: 10 or more systems reviewed and unremarkable except in HPI and below Medications/Allergies Home Medications Medication Instructions Recorded Confirmed Last Taken Type Wheel Chair #1 ea 08/18/21 11/23/23 11/18/23 Rx ropinirole 0.25 mg tablet 0.25 mg PO BEDTIME PRN Restless 08/22/21 11/23/23 11/22/23 History Leg(S) ondansetron HCl 4 mg tablet 4 mg PO Q4H PRN Nausea 04/11/22 11/23/23 11/22/23 History Compression Stockings #1 ea 04/12/22 11/23/23 11/18/23 Rx [place] boot modification #1 ea 07/17/22 11/23/23 11/18/23 Rx oxycodone 5 mg tablet 5 mg PO Q6H PRN Pain 08/16/22 11/23/23 11/22/23 History B-complex with vitamin C 1 cap PO DAILY 10/16/22 11/23/23 11/22/23 History albuterol sulfate 90 mcg/actuation 2 puff inhalation Q6H PRN 10/16/22 11/23/23 11/01/23 History aerosol inhaler Shortness Of Breath diphenhydramine HCl 25 mg tablet 25 mg PO DAILY PRN itching 10/16/22 11/23/23 11/09/23 History (Benadryl Allergy) hydroxyzine HCl 25 mg tablet 25 mg PO Q6H PRN Anxiety 10/16/22 11/23/23 11/09/23 History polyethylene glycol 3350 17 17 g PO BID PRN Constipation 10/16/22 11/23/23 11/01/23 History gram/dose oral powder (Miralax) venlafaxine 75 mg capsule,extended 75 mg PO QAM 10/16/22 11/23/23 11/22/23 History release 24 hr (Effexor XR) Prevalon boot #1 ea 11/21/22 11/23/23 11/18/23 Rx diabetic shoes with 3 heat molded #1 ea 12/15/22 11/23/23 11/18/23 Rx insoles gabapentin 300 mg capsule 300 mg PO TID PRN NERVE PAIN 01/02/23 11/23/23 11/22/23 History vit B,C-folic ac 800 mcg-zinc 12.5 1 tab PO DAILY 05/07/23 11/23/23 11/22/23 History mg-selen-D3 2,000 unit-vit E tablet (RenaPlex-D) atorvastatin 80 mg tablet 80 mg PO DAILY 07/02/23 11/23/23 11/22/23 History clopidogrel 75 mg tablet 75 mg PO DAILY 07/02/23 11/23/23 11/22/23 History pantoprazole 40 mg tablet,delayed 40 mg PO DAILY 07/02/23 11/23/23 11/22/23 History release mirtazapine 30 mg disintegrating 30 mg PO DAILY 07/27/23 11/23/23 11/18/23 History tablet nitroglycerin 0.1 mg/hr 1 patch transdermal DAILY 07/27/23 11/23/23 11/22/23 History transdermal 24 hour patch arginine 7 gram-glutam 7 1 packet PO BID 10/16/23 11/23/23 11/22/23 History gram-CaHMB 1.5 iflk-osdaf-ml-min oral pwd pkt (Mehdi (with collagen)) sodium zirconium cyclosilicate 10 See Rx Instructions .Route .COMPLEX 10/16/23 11/23/23 11/18/23 History gram oral powder packet (Lokelma) trazodone 50 mg tablet 50 mg PO BEDTIME 10/16/23 11/23/23 11/23/23 History brexpiprazole 0.5 mg tablet 0.5 mg PO QAM 11/05/23 11/23/23 11/18/23 History (Rexulti) cilostazol 50 mg tablet 50 mg PO DAILY 11/05/23 11/23/23 11/18/23 History nitroglycerin 0.4 mg sublingual 0.4 mg buccal DAILY PRN Chest Pain 11/05/23 11/23/23 11/22/23 History tablet apixaban 5 mg tablet (Eliquis) 5 mg PO BID@0900,2100 30 days #30 11/16/23 11/23/23 11/22/23 Rx tabs levothyroxine 25 mcg tablet 25 mcg PO QAM 30 days #30 tabs 11/16/23 11/23/23 11/18/23 Rx amiodarone 200 mg tablet (Pacerone) 200 mg PO BID 11/19/23 11/23/23 11/22/23 History amiodarone 200 mg tablet (Pacerone) 200 mg PO DAILY 11/19/23 11/23/23 11/22/23 History Allergies Allergy/AdvReac Type Severity Reaction Status Date / Time vancomycin Allergy Unknown ADR-Itching Verified 11/02/23 10:13 ,Rash linezolid [From Zyvox] Allergy tendonitis Verified 11/02/23 10:13 ciprofloxacin [From Cipro] AdvReac Severe Tendonitis Verified 11/02/23 10:13 dextrose 5 % in water Allergy Unknown tendonitis Uncoded 11/02/23 10:13 Current Medications Generic Name Dose Route Start Last Admin Trade Name Reid PRN Reason Stop Dose Admin Amiodarone HCl 200 mg 11/23/23 09:00 11/23/23 09:03 Amiodarone 200 Mg Tablet PO 200 mg DAILY [place] Administration Apixaban 5 mg 11/23/23 09:00 11/23/23 09:03 Apixaban 5 Mg Tablet PO 5 mg BID [place] Administration Atorvastatin Calcium 40 mg 11/23/23 09:00 11/23/23 09:03 Atorvastatin 40 Mg Tablet PO 40 mg DAILY [place] Administration Clopidogrel Bisulfate 75 mg 11/23/23 09:00 11/23/23 09:03 Clopidogrel 75 Mg Tablet PO 75 mg DAILY [place] Administration norepinephrine 4 mg in 250 mls @ 0 mls/hr 11/22/23:03 11/23/23 16:24 Levophed IV 8 mcg/min .Q0M [place] 30 mls/hr Titration Protocol Per Protocol Levothyroxine Sodium 25 mcg 11/23/23 06:00 11/23/23 06:11 Levothyroxine 25 Mcg Tablet PO 25 mcg QAM [place] Administration Morphine Sulfate 15 mg 11/22/23 21:03 11/23/23 15:14 Morphine Ir 15 Mg Tablet PO 15 mg Q6H PRN Administration MODERATE PAIN Non-Formulary Medication 1 tab 11/23/23 09:00 11/23/23 08:53 Vit B,M-Fj-Oosk-Selen-Vit D3-E [Renaplex-D] PO Not Given DAILY [place] Ondansetron HCl 4 mg 11/22/23 21:03 11/22/23 21:20 Ondansetron 2 Mg/Ml Sdv 2 Ml IVP 4 mg Q6H PRN Administration NAUSEA AND VOMITING Pantoprazole Sodium 40 mg 11/23/23 09:00 11/23/23 17:59 Pantoprazole 40 Mg Sdv IVP 40 mg BID [place] Administration Senna/Docusate Sodium 1 tab 11/23/23 09:00 11/23/23 09:03 Sennosides-Docusate Tablet PO 1 tab DAILY [place] Administration Sodium Chloride 50 ml 11/22/23 19:53 11/23/23 01:35 Sodium Chloride 0.9% 100 Ml Bag IV 11/23/23 19:53 50 ml PRN PRN Administration Blood transfusion prime and flush Trazodone HCl 50 mg 11/22/23 21:03 11/22/23 21:14 Trazodone 50 Mg Tablet PO 50 mg BEDTIME [place] Administration PFSH Acute 2 PFSH: Medical History Uremia Chronic osteomyelitis Type 2 diabetes mellitus 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, limited to breakdown of skin Chronic osteomyelitis of right foot Foot osteomyelitis, right Osteomyelitis Cellulitis Necrosis of surgical wound Foot osteomyelitis, left Hypovolemic shock Anemia of chronic disease Ulcer of sacral region, stage 1 Gas gangrene Acquired equinovarus deformity of left foot Pre-ulcerative calluses Xerosis of skin 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 Cellulitis Diabetes BMI 50.0-59.9, adult Diabetic foot ulcers Fracture, thoracic vertebra T7-T8 Osteomyelitis Non-pressure chronic ulcer of other part of right foot with necrosis of muscle Chronic venous insufficiency Chronic dysfunction of both eustachian tubes Lung nodule Hypoglycemia unawareness associated with type 2 diabetes mellitus Chronic ulcer of left foot with fat layer exposed Non-healing ulcer of right foot with fat layer exposed Vitamin D deficiency First degree heart block COPD (chronic obstructive pulmonary disease) Hypertension Urinary retention History of renal cell carcinoma Morbid obesity with BMI of 40.0-44.9, adult Cardiac arrest Anemia Pneumonia due to 2019-nCoV (~07/2020) Renal cell carcinoma History bilateral renal cell carcinoma 2007 then recurrence on the contralateral side 2011. No recurrence for long-term follow-up with some suspicion on CT scan April 2020. CHF (congestive heart failure), NYHA class III Chronic respiratory failure with hypoxia and hypercapnia Obesity hypoventilation syndrome Metabolic alkalosis Accelerated hypertension Restrictive lung disease Obstructive sleep apnea non compliant with home bipap/cpap Fracture of fourth metatarsal bone of left foot Type 2 diabetes mellitus with diabetic polyneuropathy PVD (peripheral vascular disease) Fracture of fifth metatarsal bone of left foot Neuropathy Surgical History Status post below-knee amputation of left lower extremity History of left below knee amputation History of cataract surgery H/O wisdom tooth extraction Hx of lymph node excision H/O partial nephrectomy bilateral Family History Father , at age 65 Diabetes Cancer Metastatic prostate cancer to liver Mother , at age 72 Diabetes Grandfather Diabetes Cancer Other Anemia Hyperlipidemia Social History Smoking and tobacco/nicotine status: never used tobacco/nicotine Second hand smoke exposure: Yes Alcohol intake: current Alcohol intake frequency: holidays/special occasions only Substance/Drug Use: never Lives independently: Yes Household members: spouse Housing: House Marital status: service: No Current occupational status: retired Pets and animals: Yes Do you think of yourself as: Straight/Heterosexual Current gender identity: Male Vitals/I&O/Wt Last Vital Signs Temp 97.9 F 11/23/23 15:35 Pulse 81 11/23/23 16:50 Resp 21 H 11/23/23 16:50 BP 102/39 11/23/23 16:50 Pulse Ox 86 L 11/23/23 16:50 O2 Del Method Nasal Cannula 11/23/23 07:42 O2 Flow Rate 3 11/23/23 07:42 11/23/23 11/23/23 11/23/23 06:59 14:59 22:59 Intake Total 335.25 / 435.25 1457 / 1457 682.5 / 2139.5 Balance 335.25 / 435.25 1457 / 1457 682.5 / 2139.5 Weight last 48 hrs Weight 255 lb 7 oz Weight 255 lb 7 oz Weight 260 lb Physical Exam 2 Narrative: Patient is alert, oriented GI: OTHER: Abdomen is distended, nontender, there is an umbilical hernia. Ascitic wave positive. Extremity: NARRATIVE EXTREMITY EXAM: Surgical absence of the left lower extremity. Data 11/23/23 13:06 11/23/23 04:15 A&P Assessment and plan (1) Acute non-ST elevation myocardial infarction (NSTEMI): (2) Chest pain: Qualifiers: Chest pain type: unspecified Qualified Code(s): R07.9 - Chest pain, unspecified (3) Shock: (4) End-stage renal disease on hemodialysis: (5) Anemia requiring transfusions: Plan After a complete history, physical examination and review of all available clinical data the following is my assessment. Patient clinical history is questionable for the possibility of GI bleeding but I do agree that he has had a significant downtrend of his hemoglobin. I think the first step before deciding to proceed with endoscopy is medically stabilization that has been done by the medical team and in addition I think it would be appropriate to proceed with a CTA of the abdomen and pelvis to evaluate for the possibility of intraluminal blushes that cannot be detected and to rule out any other intra-abdominal pathology that may be causing his symptoms. Once we obtain the CTA I will plan to proceed with possible upper endoscopy. I discussed with the patient all the risk and benefits of the upper endoscopy in anticipation for the need of EGD including the risk of perforation of the esophagus stomach or duodenum requiring surgical intervention and transfer to higher level of care. I have also informed the patient that due to his multiple medical comorbidities as well as recent cardiac history he will be extremely high risk for cardiac complications during the procedure as well as intraprocedural or postprocedural mortality. Patient shows understanding and wished to proceed. I discussed with the patient the goals of care and he indicates that he would like to do everything needed and if his card stops during the procedure he would like to have resuscitation. I will follow-up the results of the CTA before my final decision regarding EGD. -CTA abdomen and pelvis for evaluation of possible GI bleeding -N.p.o. after midnight -Possible EGD tomorrow morning Stop Eliquis,-since contraindicated from the cardiac standpoint we should continue Plavix -Continue twice a day PPI- Coding Level of Care Code 18055 Diagnoses Acute non-ST elevation myocardial infarction (NSTEMI) I21.4 Chest pain R07.9 Chest pain type: unspecified Shock R57.9 End-stage renal disease on hemodialysis N18.6; Z99.2 Anemia requiring transfusions D64.9
--- NOTE | 2023-11-23 18:36 | PM.PN ---
Subjective Subjective: He is not having more chest pain. He does have some chest wall discomfort with deep breaths or repositioning. On revisit he is feeling little bit lightheaded. Vitals/I&O/Wt Last Vital Signs Temp 97.9 F 11/23/23 15:35 Pulse 81 11/23/23 16:50 Resp 21 H 11/23/23 16:50 BP 102/39 11/23/23 16:50 Pulse Ox 86 L 11/23/23 16:50 O2 Del Method Nasal Cannula 11/23/23 07:42 O2 Flow Rate 3 11/23/23 07:42 11/23/23 11/23/23 11/23/23 06:59 14:59 22:59 Intake Total 335.25 / 435.25 1457 / 1457 682.5 / 2139.5 Balance 335.25 / 435.25 1457 / 1457 682.5 / 2139.5 Weight last 48 hrs Weight 115.865 kg Weight 115.865 kg Weight 117.934 kg Physical Exam Const: COMMON NORMALS: patient oriented x3 and alert GENERAL APPEARANCE: cooperative ORIENTATION/CONSCIOUSNESS: Yes awake HENMT: COMMON NORMALS: oropharynx normal Neck/C-Spine: COMMON NORMALS: no JVD Resp: COMMON NORMALS: normal respiratory effort and clear to auscultation bilaterally AUSCULTATION: clear to auscultation bilaterally Cardio: COMMON NORMALS: no JVD, regular rhythm, S1 normal heart sound present, S2 normal heart sound present and No murmurs present (Cardio) RHYTHM: regular rhythm HEART SOUNDS: S1 normal heart sound present and S2 normal heart sound present GI: COMMON NORMALS: Normal to inspection, nondistended, normoactive bowel sounds present, Soft to palpation and non-tender PALPATION: Yes Soft to palpation OTHER: Abdomen distended with ascites. Extremity: COMMON NORMALS: no joint enlargement and no pedal edema Neuro: COMMON NORMALS: patient oriented x3 and moves all extremities SENSORIUM/ORIENTATION: Yes alert Skin: COMMON NORMALS: no rashes or lesions noted GENERAL SKIN EXAM: no rashes or lesions noted Data 11/23/23 13:06 11/23/23 04:15 A&P Assessment and plan (1) Noncompliance: (2) Hypotension: Qualifiers: Hypotension type: unspecified hypotension type Qualified Code(s): I95.9 - Hypotension, unspecified (3) Aortic stenosis: Qualifiers: Cardiac valve disease etiology: nonrheumatic Qualified Code(s): I35.0 - Nonrheumatic aortic (valve) stenosis (4) Shock: (5) Type 2 diabetes mellitus: Qualifiers: Chronic kidney disease stage: on chronic dialysis Diabetes mellitus complication detail: with chronic kidney disease Diabetes mellitus complication status: with kidney complications Diabetes mellitus termite control service representative insulin use: without termite control service representative use Qualified Code(s): E11.22 - Type 2 diabetes mellitus with diabetic chronic kidney disease; N18.6 - End stage renal disease; Z99.2 - Dependence on renal dialysis (6) End-stage renal disease on hemodialysis: (7) Anemia requiring transfusions: (8) Acute hypoxic respiratory failure: (9) Anasarca: Plan Hypovolemic shock She had received albumin, had completed 2 units of RBC transfusion, denied any chest pain or pressure. We requested repeat hemoglobin, assessment with echocardiogram. Discussed with him some troponin ovation compared to prior as well as somewhat of a rising trend with positive delta. Recheck hemoglobin coming back at 5.8 with adequate response to transfusion. Ordered additional 2 units to be transfused, follow-up hemoglobin, discussed with surgeon, requesting consultation with concern for possible upper GI bleed with dark stools. They are considering EGD, we are also requesting for additional assessment with CTA abdomen pelvis. He is still in shock, requiring pressor 8 mcg/min Levophed. Fourth unit is being given as a bolus currently. Discussed with his he is at high risk of complication that may take his life given other severe comorbidities with extensive coronary disease with recent stents, inability to tolerate antiplatelets at the moment, anemia, at risk of breath life-threatening arrhythmia, other complications, as well as other multisystem dysfunction including end-stage renal disease as well as nonalcoholic liver cirrhosis, he is at high risk of lethal outcome. Discussed with blood bank, we are requesting additional 2 units RBC to be available as well as requesting for transfusion of 2 units of platelets and FFP's. Discussed with nursing staff to run the fourth unit of blood and proceed to CTA if hemodynamics allow maintaining MAP above 65. Discussed with nighttime hospitalist regarding the above and plans who is aware and will follow-up as well. Checking INR as well, consider oral vitamin K supplementation. Patient asked for food and about advancing diet, discussed with him for now we will avoid advancing diet, keep with with only clears given his overall condition risk of deterioration, risk of ischemic losing bowel ischemia given shock, as well as possible need for procedures. Continue IV Protonix twice daily. Discussed with gas leak inspector helper regarding additional transfusions. They are planning for dialysis tomorrow. Discussed with cardiology, appreciate consultation. Reviewed echocardiogram. Held all antiplatelets and anticoagulation for now. Discussed with him we may have to reassess depending on his condition when may be safe to resume. Discussed with patient's . She may notify his children of his severe/life-threatening condition in case they are able to visit with him. He otherwise is afebrile without leukocytosis, no abdominal pain or tenderness, no suggestion of acute infection or sepsis or septic shock. Third spacing versus hemorrhagic Patient had paracentesis done on Sunday Dialysis on Patient is endorsing dark-colored stools, reported had been scheduled for colonoscopy but missed it due to hospitalization Monitor H&H I will start patient on Protonix as well Left shoulder pain Discussing with him, chest pain with deep breaths, repositioning ever since he had chest compressions. Currently no active chest pain. Not complaining active chest pain Troponin elevation, discussed with press hand, reviewed echocardiogram, this appears likely demand ischemia, treat anemia, hemodynamic compromise. A-fib: amiodarone, Eliquis held Poorly controlled diabetes Sliding scale along insulin Sunday hemodialysis dependent Full code Clear liquid diet Attestations Medical Necessity Statement*: Continue admission for assessment management of shock, suspected acute blood loss anemia hemorrhagic versus hypovolemic shock, additional comorbidities. Advanced CAD with recent stents and gentleman with end-stage kidney disease, liver cirrhosis, Coding Level of Care Code Critical Care >/= 30 minutes Critical care time (in minutes): 65 The high probability of a clinically significant, sudden or life threatening deterioration, as referenced in this documentation, required my full and direct attention, intervention and personal management. The critical care time shown is in addition to time spent performing any reported separately billable procedures and includes the following: [x] Data and vital sign review and interpretation [x] Patient assessment, examination and intervention [x] Medication orders and management [x] Patient/Family updates as able [x] Care Coordination and Documentation. Diagnoses Noncompliance Z91.199 Hypotension I95.9 Hypotension type: unspecified hypotension type Nonrheumatic aortic valve stenosis I35.0 Cardiac valve disease etiology: nonrheumatic Shock R57.9 Type 2 diabetes mellitus with chronic kidney disease on chronic dialysis, without long-term current use of insulin E11.22; N18.6; Z99.2 Chronic kidney disease stage: on chronic dialysis Diabetes mellitus complication detail: with chronic kidney disease Diabetes mellitus complication status: with kidney complications Diabetes mellitus detention insulin use: without termite control service representative use End-stage renal disease on hemodialysis N18.6; Z99.2 Anemia requiring transfusions D64.9 Acute hypoxic respiratory failure J96.01 Anasarca R60.1
[2023-11-23] MEDS: iohexol 350 mg/mL 500 mL Btl (per mL) IV (19:20)
[2023-11-23 20:21] LABS: INR 1.59 (0.8-1.2)
[2023-11-23] MEDS: norepinephrine 4 MG/250 ML BAG 45 MG IV (21:08)
[2023-11-23] MEDS: trazodone 50 mg Tablet PO (21:32)
--- NOTE | 2023-11-23 21:49 | PM.MISC ---
Miscellaneous Note Purpose of Documentation: Update on patient care Note: CTA of the abdomen was reviewed, there is evidence of hyperdense material on the left paracolic gutter and pelvis, consistent with blood products. This is likely due to post-procedural bleeding after recent paracentesis done on 11/18 using a LLQ approach. there is no evidence of active extravasation. plan is to continue active resucitation and transfusion as needed. If downtrend of the Hemoglobin cotinues please consider transfer to higher level of care for angioembolization. at the moment will defer EGD as source of bleeding appears to be abdominal wall vs mesenteric branch on the left hemiabdomen.
[2023-11-24] VITALS (74 sets, daily range): BP systolic 77–119; BP diastolic 26–94; PULSE 79–92; RESP 9–21; TEMP 36.2–36.7; O2SAT 65–100; BMI 34.2
[2023-11-24] MEDS: norepinephrine 4 MG/250 ML BAG 45 MG IV (03:01)
[2023-11-24] MEDS: morphine IR 15 mg Tablet PO (03:56)
--- NOTE | 2023-11-24 04:24 | PC.NURSE ---
TAR did not update that this nurse scanned the fresh frozen plasma at 0345. This nurse had to scan the product again and update the TAR to reflect when the product was actually administered.
[2023-11-24] MEDS: levothyroxine 25 mcg Tablet PO (06:08)
[2023-11-24 06:37] LABS: Basophils # 0.1 10^3/uL (0.0-0.1); Basophils % 0.9 %; Eosinophils # 0.5 10^3/uL (0.0-0.8); Eosinophils % 6.9 %; Lymphocytes # 0.8 10^3/uL (0.8-4.8); Lymphocytes % 11.2 %; Mean Corpuscular HGB Conc 31.2 g/dL (30-55); Mean Corpuscular Hemoglobin 28.3 pg (27-33); Mean Corpuscular Volume 90.6 fl (82-101); Mean Platelet Volume 10.4 fL (7.4-10.4); Monocytes # 0.7 10^3/uL (0.2-0.9); Monocytes % 9.7 %; Neutrophils # 5.26 10^3/uL (1.8-7.7); Neutrophils % 70.4 %; Nucleated Red Blood Cells % 0.3 %; Platelet Count 168 10^3/cmm (157-399); Red Blood Count 2.23 10^6/uL (3.85-5.65); Red Cell Distribution Width 18.7 % (12.1-15.1); White Blood Count 7.49 10^3/uL (3.29-11.43)
--- NOTE | 2023-11-24 06:44 | PM.PN ---
Subjective Subjective: s/p HD yesterday Medications: Reviewed: Yes Vitals/I&O/Wt Last Vital Signs Temp 97.6 F 11/24/23 06:00 Pulse 81 11/24/23 06:00 Resp 15 11/24/23 06:00 BP 89/54 11/24/23 06:00 Pulse Ox 100 11/24/23 06:00 O2 Del Method Oxymask 11/24/23 06:00 O2 Flow Rate 3 11/24/23 06:00 11/23/23 11/23/23 11/24/23 14:59 22:59 06:59 Intake Total 1457 / 1457 1886.0 / 3343.0 1299 / 4642.0 Balance 1457 / 1457 1886.0 / 3343.0 1299 / 4642.0 Weight last 48 hrs Weight 117.934 kg Weight 115.865 kg Weight 115.865 kg Weight 117.934 kg Physical Exam Const: OTHER: awake , alert no distress S1S2 RRR per report Lungs clear per report no edema Data 11/24/23 06:05 11/24/23 06:05 A&P Assessment and plan (1) End-stage renal disease on hemodialysis: Plan 1 End-Stage Renal Disease on Hemodialysis per TTS Schedule, hd today 2. Hypovolemic Shock in the Setting of Anemia, Hypovolemia, s/p 1 Unit PRBCs and IV Albumin. 3. History of A-Fib 4. Diabetes Patient evaluated using audiovisual cart. Time spent 20-minutes Attestations Medical Necessity Statement*: per [facility] Coding Level of Care Code Acute Code for Chg Fwd Diagnoses End-stage renal disease on hemodialysis N18.6; Z99.2
[2023-11-24 06:45] LABS: Hematocrit 20.2 % (37-53)
[2023-11-24 06:53] LABS: Alanine Aminotransferase 8 U/L (0-41); Albumin Level 2.7 g/dL (3.5-5.2); Alkaline Phosphatase 73 U/L (40-130); Anion Gap 14.4 (5-19); Aspartate Amino Transferase 11 U/L (0-40); Blood Urea Nitrogen 33 mg/dL (6-20); Calcium 6.9 mg/dL (8.5-10.5); Carbon Dioxide 34 mmol/L (22-29); Chloride 92 mmol/L (98-107); Globulin 3.4 g/dL (1.3-4.6); Glomerular Filtration Rate 12.8 mL/min (90-130); Glucose 136 mg/dL (65-115); Osmolality Calculated 291 mOsm/kg (285-295); Potassium 4.4 mmol/L (3.5-5.1); Sodium 136 mmol/L (136-145); Total Bilirubin 1.8 mg/dL (0.15-1.2); Total Protein 6.1 g/dL (6.6-8.7)
[2023-11-24 06:57] LABS: Creatinine Clr Calc Pharmacy 23.9435
[2023-11-24 07:15] LABS: Hepatitis B Surface AB 44.7 (11.5-1000); Hepatitis B Surface Antigen Non-Reactive (Nonreactive)
[2023-11-24] MEDS: heparin, porcine 1,000 unit/mL INJ 10 mL 1000 UNIT IV (07:45)
[2023-11-24] MEDS: norepinephrine 4 MG/250 ML BAG 52.5 MG IV ×3 (08:30→14:49)
--- NOTE | 2023-11-24 10:04 | PM.PN ---
Subjective Subjective: Patient seems to be doing okay. He had a CT of the abdomen and the pelvis today which reveals possible blood in the abdomen. Source of bleeding is not known. Patient is still requiring blood transfusion to maintain the hemoglobin. Denies any chest pain or palpitations. No specific cardiac symptoms. Medications: Medication Review Details: Current Medications Acetaminophen (Acetaminophen 500 Mg Tablet) 500 mg PO Q4H PRN PRN Reason: fever Albuterol/Ipratropium (Ipratropium-Albuterol 3 Ml Neb) 3 ml INHALATION Q6H PRN PRN Reason: SHORTNESS OF BREATH Amiodarone HCl (Amiodarone 200 Mg Tablet) 200 mg PO DAILY [facility] Last Admin: 11/23/23 09:03 Dose: 200 mg Apixaban (Apixaban 5 Mg Tablet) 5 mg PO BID [facility] Last Admin: 11/23/23 09:03 Dose: 5 mg Atorvastatin Calcium (Atorvastatin 40 Mg Tablet) 40 mg PO DAILY [facility] Last Admin: 11/23/23 09:03 Dose: 40 mg Clopidogrel Bisulfate (Clopidogrel 75 Mg Tablet) 75 mg PO DAILY [facility] Last Admin: 11/23/23 09:03 Dose: 75 mg norepinephrine (Levophed) 4 mg in 250 mls @ 0 mls/hr IV .Q0M [place]; Protocol Last Admin: 11/24/23 08:30 Dose: 14 mcg/min, 52.5 mls/hr Sodium Chloride (Sodium Chloride 0.9%) 1,000 mls @ 0 mls/hr IV .Q0M PRN PRN Reason: hypotension or symptomatic Albumin Human (Albumin) 12.5 gm in 50 mls @ 60 mls/hr IV PRN PRN PRN Reason: Hypotension and/or symptomatic Sodium Chloride (Sodium Chloride 0.9%) 1,000 mls @ 0 mls/hr IV .Q0M PRN PRN Reason: hypotension or symptomatic Albumin Human (Albumin) 12.5 gm in 50 mls @ 60 mls/hr IV PRN PRN PRN Reason: Hypotension and/or symptomatic Levothyroxine Sodium (Levothyroxine 25 Mcg Tablet) 25 mcg PO QAM [facility] Last Admin: 11/24/23 06:08 Dose: 25 mcg Morphine Sulfate (Morphine Ir 15 Mg Tablet) 15 mg PO Q6H PRN PRN Reason: MODERATE PAIN Last Admin: 11/24/23 03:56 Dose: 15 mg Non-Formulary Medication (Sodium Zirconium Cyclosilicate [Lokelma]) 0 gm PO DIRECTED [facility] Non-Formulary Medication (Vit B,I-Cy-Stgr-Selen-Vit D3-E [Renaplex-D]) 1 tab PO DAILY [facility] Last Admin: 11/23/23 08:53 Dose: Not Given Ondansetron HCl (Ondansetron 2 Mg/Ml Sdv 2 Ml) 4 mg IVP Q6H PRN PRN Reason: NAUSEA AND VOMITING Last Admin: 11/22/23 21:20 Dose: 4 mg Pantoprazole Sodium (Pantoprazole 40 Mg Sdv) 40 mg IVP BID [facility] Last Admin: 11/23/23 17:59 Dose: 40 mg Senna/Docusate Sodium (Sennosides-Docusate Tablet) 1 tab PO DAILY [facility] Last Admin: 11/23/23 09:03 Dose: 1 tab Sodium Chloride (Sodium Chloride 0.9% 100 Ml Bag) 50 ml IV PRN PRN PRN Reason: Blood transfusion prime and flush Stop: 11/24/23 14:15 Sodium Chloride (Sodium Chloride 0.9% 100 Ml Bag) 50 ml IV PRN PRN PRN Reason: Blood transfusion prime and flush Stop: 11/24/23 18:29 Sodium Chloride (Sodium Chloride 0.9% 100 Ml Bag) 50 ml IV PRN PRN PRN Reason: Blood transfusion prime and flush Stop: 11/25/23 07:56 Trazodone HCl (Trazodone 50 Mg Tablet) 50 mg PO BEDTIME [facility] Last Admin: 11/23/23 21:32 Dose: 50 mg Vitals/I&O/Wt Last Vital Signs Temp 97.2 F L 11/24/23 07:55 Pulse 88 11/24/23 09:30 Resp 19 H 11/24/23 09:30 BP 112/69 11/24/23 09:30 Pulse Ox 94 11/24/23 09:30 O2 Del Method Oxymask 11/24/23 08:11 O2 Flow Rate 3 11/24/23 08:11 11/23/23 11/24/23 11/24/23 22:59 06:59 14:59 Intake Total 1886.0 / 3343.0 1299 / 4642.0 1244.0 / 1244.0 Balance 1886.0 / 3343.0 1299 / 4642.0 1244.0 / 1244.0 Weight last 48 hrs Weight 260 lb Weight 255 lb 7 oz Weight 255 lb 7 oz Weight 260 lb Physical Exam Narrative: GENERAL: The patient is alert and oriented times three. Not in any acute distress. Obese HEENT: Moderate pallor with no icterus or lymphadenopathy.Oral cavity: There are no mucous membrane lesions. NECK: Trachea appears to be central. No masses noted. No JVD or thyromegaly appreciated. RESPIRATORY: Chest is symmetrical. No intercostals muscle retraction or any accessory muscle activation. There is no chest wall tenderness. Breath sounds are heard bilaterally. No rales or rhonchi heard. No evidence of any consolidation. BREASTS: Deferred. HEART: The heart sounds are normal. No S3 or S4. Ejection systolic murmur grade 3 or 6 in the aortic area. No diastolic murmurs. No pericardial rub ABDOMEN: Moderately distended and tense. Umbilical hernia present. : Deferred. RECTAL: Deferred. LYMPHATIC: No lymphadenopathy noted in the neck. EXTREMITIES: Below-knee amputation on the left side. The right leg has features of chronic venous stasis, stasis dermatitis and some heel ulcers. MUSCULOSKELETAL: No acute joint deformities or swelling SKIN: There are no significant rashes or ecchymosis NEUROPSYCHIATRIC: The patient is alert and oriented x3. Appears to be in a good mood. No tremors or rigidity noted. Data 11/24/23 11:51 11/24/23 06:05 Other Labs: Laboratory Last Values WBC 7.49 10^3/uL (3.29-11.43) 11/24/23 06:05 RBC 2.23 10^6/uL (3.85-5.65) L 11/24/23 06:05 Hgb 6.30 g/dL (11.27-16.99) L* 11/24/23 06:05 Hct 20.2 % (37-53) L* 11/24/23 06:05 MCV 90.6 fl (82-101) 11/24/23 06:05 MCH 28.3 pg (27-33) 11/24/23 06:05 MCHC 31.2 g/dL (30-55) D 11/24/23 06:05 RDW 18.7 % (12.1-15.1) H 11/24/23 06:05 Plt Count 168 10^3/cmm (157-399) 11/24/23 06:05 MPV 10.4 fL (7.4-10.4) 11/24/23 06:05 Neut % (Auto) 70.4 % 11/24/23 06:05 Lymph % (Auto) 11.2 % 11/24/23 06:05 [place] % (Auto) 9.7 % 11/24/23 06:05 Eos % (Auto) 6.9 % 11/24/23 06:05 Baso % (Auto) 0.9 % 11/24/23 06:05 Neut # (Auto) 5.26 10^3/uL (1.8-7.7) 11/24/23 06:05 Lymph # (Auto) 0.8 10^3/uL (0.8-4.8) 11/24/23 06:05 [place] # (Auto) 0.7 10^3/uL (0.2-0.9) 11/24/23 06:05 Eos # (Auto) 0.5 10^3/uL (0.0-0.8) 11/24/23 06:05 Baso # (Auto) 0.1 10^3/uL (0.0-0.1) 11/24/23 06:05 Nucleated RBC % (auto) 0.3 % 11/24/23 06:05 Nucleated RBCs # 0.0 /100WBC 11/24/23 06:05 PT 19.50 SECONDS (12.1-14.9) H 11/23/23 19:00 INR 1.59 (0.8-1.2) H 11/23/23 19:00 D-Dimer 12.02 ug/mLFEU (0-0.59) H 11/22/23 19:06 Sodium 136 mmol/L (136-145) 11/24/23 06:05 Potassium 4.4 mmol/L (3.5-5.1) 11/24/23 06:05 Chloride 92 mmol/L (98-107) L 11/24/23 06:05 Carbon Dioxide 34 mmol/L (22-29) H 11/24/23 06:05 Anion Gap 14.4 (5-19) 11/24/23 06:05 BUN 33 mg/dL (6-20) H 11/24/23 06:05 Creatinine 4.8 mg/dL (0.7-1.2) H 11/24/23 06:05 GFR Calculation 12.8 mL/min (90-130) L 11/24/23 06:05 Glucose 136 mg/dL (65-115) H 11/24/23 06:05 Calculated Osmolality 291 mOsm/kg (285-295) 11/24/23 06:05 Calcium 6.9 mg/dL (8.5-10.5) L 11/24/23 06:05 Phosphorus 4.2 mg/dL (2.5-4.5) 11/23/23 04:15 Magnesium 1.7 mg/dL (1.7-2.3) 11/23/23 04:15 Total Bilirubin 1.8 mg/dL (0.15-1.2) H 11/24/23 06:05 AST 11 U/L (0-40) 11/24/23 06:05 ALT 8 U/L (0-41) 11/24/23 06:05 Alkaline Phosphatase 73 U/L (40-130) 11/24/23 06:05 Troponin T Baseline 301 ng/L (0-15) H* 11/22/23 19:06 Troponin T 120 Minute 311.1 ng/L (0-15) H 11/22/23 21:11 Delta Troponin T 10.1 ABS# (0-10) H* 11/22/23 21:11 Troponin T Hi Sens 6Hr 328.0 ng/L (0-15) H 11/23/23 02:36 Troponin T Hi Sens 6Hr Delta 27.0 ng/L (0-12) H* 11/23/23 02:36 Total Protein 6.1 g/dL (6.6-8.7) L 11/24/23 06:05 Albumin 2.7 g/dL (3.5-5.2) L 11/24/23 06:05 Globulin 3.4 g/dL (1.3-4.6) 11/24/23 06:05 Hep Bs Antigen Non-reactive (Nonreactive) 11/24/23 06:05 Hep Bs Antibody 44.7 (11.5-1000) 11/24/23 06:05 Blood Type A Positive 11/22/23 20:09 Rho(D) Type Rh positive 11/22/23 20:09 Antibody Screen Negative 11/22/23 20:09 Crossmatch See Detail 11/22/23 20:09 A&P Assessment and plan (1) Elevated troponin: Most likely related to type II [place]. Possibility of an acute coronary event cannot be excluded but my clinical suspicion may be low. (2) Anemia requiring transfusions: Possible intra-abdominal bleeding. Management as per the primary. (3) Atherosclerotic heart disease of [place] coronary artery with other forms of angina pectoris: Patient has significant chest wall pain, possibly from the rib fracture. It seems to be slowly improving. (4) Aortic stenosis: Patient has mild aortic valve stenosis. He may not require any specific intervention at this point. Qualifiers: Cardiac valve disease etiology: nonrheumatic Qualified Code(s): I35.0 - Nonrheumatic aortic (valve) stenosis (5) End-stage renal disease on hemodialysis: Patient may continue on the hemodialysis. (6) Type 2 diabetes mellitus: Management as per the primary Qualifiers: Chronic kidney disease stage: on chronic dialysis Diabetes mellitus complication detail: with chronic kidney disease Diabetes mellitus complication status: with kidney complications Diabetes mellitus termite inspector insulin use: without termite inspector use Qualified Code(s): E11.22 - Type 2 diabetes mellitus with diabetic chronic kidney disease; N18.6 - End stage renal disease; Z99.2 - Dependence on renal dialysis Plan Since the patient's overall cardiovascular status seems to be stable, may continue on the current management. Attestations Medical Necessity Statement*: Deferred to the primary Coding Level of Care Code 60666 Diagnoses Elevated troponin R79.89 Anemia requiring transfusions D64.9 Atherosclerotic heart disease of [place] coronary artery with other forms of angina pectoris I25.118 Nonrheumatic aortic valve stenosis I35.0 Cardiac valve disease etiology: nonrheumatic End-stage renal disease on hemodialysis N18.6; Z99.2 Type 2 diabetes mellitus with chronic kidney disease on chronic dialysis, without long-term current use of insulin E11.22; N18.6; Z99.2 Chronic kidney disease stage: on chronic dialysis Diabetes mellitus complication detail: with chronic kidney disease Diabetes mellitus complication status: with kidney complications Diabetes mellitus termite inspector insulin use: without chcf use
--- NOTE | 2023-11-24 10:09 | P.PN_ITS ---
Subjective 2 Subjective: This is a 53-year-old male with multiple medical comorbidities who was admitted with possible acute blood loss anemia. On evaluation this morning patient was receiving dialysis at the time of my visit, he denies any significant symptoms, no abdominal pain, no nausea or vomit. Currently was receiving platelets and a unit of blood. Vitals/I&O/Wt Last Vital Signs Temp 97.2 F L 11/24/23 07:55 Pulse 88 11/24/23 09:30 Resp 19 H 11/24/23 09:30 BP 112/69 11/24/23 09:30 Pulse Ox 94 11/24/23 09:30 O2 Del Method Oxymask 11/24/23 08:11 O2 Flow Rate 3 11/24/23 08:11 11/23/23 11/24/23 11/24/23 22:59 06:59 14:59 Intake Total 1886.0 / 3343.0 1299 / 4642.0 1244.0 / 1244.0 Balance 1886.0 / 3343.0 1299 / 4642.0 1244.0 / 1244.0 Weight last 48 hrs Weight 260 lb Weight 255 lb 7 oz Weight 255 lb 7 oz Weight 260 lb Physical Exam 2 GI: OTHER: Abdomen is distended, soft and nontender. Data 11/24/23 06:05 11/24/23 06:05 A&P Assessment and plan (1) Chest pain: Qualifiers: Chest pain type: unspecified Qualified Code(s): R07.9 - Chest pain, unspecified (2) Acute non-ST elevation myocardial infarction (NSTEMI): (3) End-stage renal disease on hemodialysis: (4) Anemia requiring transfusions: Plan Is a 53-year-old male who was admitted with suspected acute blood loss anemia who was suspected to have a GI bleeding as source. CT of the abdomen done yesterday show evidence of intraperitoneal blood in the left paracolic gutter as well in the in the left deep pelvis. Patient did have paracentesis on 422, this findings may be consistent with postprocedural bleeding. Management for this should be conservative in nature with blood transfusion as needed as well as correction of the underlying coagulopathy that is being done by medical team. Indicates of persistent downtrending of the hemoglobin despite of correction of coagulopathy and platelet transfusion the recommendation will be for IR evaluation for the possibility of an verbalization as these bleeding may be caused by a small mesenteric branch versus an abdominal wall vessel. At the moment there is no role for surgical intervention in this patient. We do not plan to proceed with EGD as source of bleeding does not appear to be the GI tract. General surgery will continue to follow Attestations 2 Medical Necessity Statement*: Per medical team Coding Level of Care Code Acute Code for Chg Fwd Diagnoses Chest pain R07.9 Chest pain type: unspecified Acute non-ST elevation myocardial infarction (NSTEMI) I21.4 End-stage renal disease on hemodialysis N18.6; Z99.2 Anemia requiring transfusions D64.9
[2023-11-24] MEDS: sennosides-docusate Tablet 1 TAB PO (10:55)
[2023-11-24] MEDS: amiodarone 200 mg Tablet PO (10:56)
[2023-11-24] MEDS: pantoprazole 40 mg SDV IVP (10:56)
[2023-11-24] MEDS: phytonadione (ADULT) 10 mg/mL Ampule 1 mL 5 MG PO (10:56)
[2023-11-24] MEDS: atorvastatin 40 mg Tablet PO (10:56)
[2023-11-24] MEDS: morphine 4 mg/mL SDV 1 mL 1 MG IVP (12:22)
[2023-11-24 12:25] LABS: Reflex FDPQ test REFLEX FDP QUEST TES
[2023-11-24 12:26] LABS: Hematocrit 23.8 % (37-53)
--- NOTE | 2023-11-24 12:45 | PC.HD ---
Fluid removal goal not met due to patient's asymptomatic hypotension. Community Service Officer Coordinator aware.
[2023-11-24 12:51] LABS: Lactate Dehydrogenase 208 U/L (135-225)
--- NOTE | 2023-11-24 13:19 | P.TS_ITS ---
Transfer Summary Providers Date of Admission: 11/22/23 20:34 Date of Discharge/Transfer: 11/24/23 Attending Provider at Admission: Chris Johansen MD Attending Provider at Transfer: Frederick Barclay Primary Care Provider: Sulma Wetzel MD Transfer Plans: Anticipated date of transfer: 11/24/23 . Diagnoses at Discharge Discharge Diagnosis (1) Elevated troponin: Status: Acute (2) Anemia requiring transfusions: Status: Acute (3) Atherosclerotic heart disease of [place] coronary artery with other forms of angina pectoris: Status: Acute (4) Aortic stenosis: Status: Acute Qualifiers: Cardiac valve disease etiology: nonrheumatic Qualified Code(s): I35.0 - Nonrheumatic aortic (valve) stenosis (5) End-stage renal disease on hemodialysis: Status: Acute (6) Type 2 diabetes mellitus: Status: Acute Qualifiers: Diabetes mellitus intermediate frame tender insulin use: without intermediate frame tender use Diabetes mellitus complication status: with kidney complications Diabetes mellitus complication detail: with chronic kidney disease Chronic kidney disease stage: on chronic dialysis Qualified Code(s): E11.22 - Type 2 diabetes mellitus with diabetic chronic kidney disease; N18.6 - End stage renal disease; Z99.2 - Dependence on renal dialysis Reason for Visit Reason for Visit CHEST PAIN; HYPOTENSION Hospital Course Hospital Course Pleasant 53-year-old gentleman with history of nonalcoholic liver cirrhosis receiving paracentesis every Sunday due to ascites, ESRD on dialysis TTS, history of bilateral renal cell carcinoma in remission, advanced CAD with recent stenting, on aspirin, Plavix, with history of atrial fibrillation on Eliquis, DM2, history of diabetic wound, osteomyelitis, LLE amputation, COPD, SYED, other medical problems, recently hospitalized after ventricular fibrillation cardiac arrest, at which point underwent angioplasty with 2 additional stent placement, discharged on 11/15. Return to the hospital on 11/21 with hypotension, having some chest pain, however, chest pain related to deep breathing, moving, has had it ever since having chest compressions during last admission. On presentation with shock, was considered to be hypovolemic versus hemorrhagic, received transfusion, albumin, however, without improvement, inadequate hemoglobin response from 6.4-5.8 after 2 units, anticoagulant, antiplatelets held, received so far total of 7 RBC transfusions, 2 units of platelets and 2 units FFP yesterday as well as additional units of platelets and 2 units of cryoprecipitate today with dialysis. He reported having intermittent dark stools prior to presentation, general surgery was consulted for consideration of upper GI bleeding as a source, however, not impressive in terms of the amount of stools, not having any dark stools here. CT angiogram abdomen pelvis obtained to assess for any active bleeding, small to moderate hyperdense material in the dependent left paracolic gutter and trace hyperdense material in the dependent pelvis likely representing small amounts of blood without evidence of active extravasation to suggest active bleeding. Moderate to large ascites. Hepatic cirrhosis. Portal hypertension. However, despite imaging findings after 5 units of blood still with inadequate hemoglobin response, hemoglobin this morning 6.3 and hypotensive still requiring pressor support, discussed with patient and his sister at bedside, as per discussion with surgery consideration of transfer to higher level facility with availability of interventional radiology for additional assessment consideration of embolization with suspicion of bleeding at abdominal wall versus mesenteric branch site in the left hemiabdomen. Patient is cancer risk given hypotension on pressors, suspected GI bleeding, unstable condition, Eliquis may wear off as well as antiplatelets and bleeding may subside with additional transfusions, however, cannot guarantee and without possibility of definitive treatment here. He is agreeable for transfer. Discussed with rn cardiovascular icu over at [facility] and he is kindly accepted there for additional care. Discussed with surgery, cardiology, nephrology. Troponin with elevation on presentation up to 300 with mildly rising trend at 6 hours up to 328, he did not have any subsequent chest pain other than soreness from chest compressions. Cardiology was consulted, echocardiogram was obtained, likely demand ischemia secondary to shock, acute anemia, Type I NE could not be entirely excluded but suspicion low on cardiology assessment. He will need to have antiplatelets restarted as soon as possible given recent stents to prevent in-stent thrombosis, however, he is still at risk of life- threatening bleeding. He was also given 5 mg dose of oral vitamin K today as INR is 1.43. DIC profile was checked, fibrinogen is okay. DDimer 8.9, down from 12 on presentation, LE duplex negative for DVT, difficult to interpret in ESRD, Hx chest compressions earlier this month, etc. He was anticoagulated pre- admission. Did request peripheral smear, direct bilirubin, appears the direct fraction is elevated, requested haptoglobin, LDH, but lower suspicion for hemolysis. Platelets with good response. DDAVP was also recommended for consideration by rn cardiovascular icu from [facility], discussed with patient and his sister, however, so far on recheck hemoglobin did come up as high as 7.7, blood pressure with some improvement, did just undergo dialysis, BUN is 33, and with stents recently placed without antiplatelets and risk of NE will rather hold off DDAVP with concerns of the medication safety profile and his risk at the moment. With transport on the way patient requested anxiety medicine for transport due to claustrophobia, requested 0.5mg Ativan IV. Physical Exam Narrative: Patient's sister at bedside. Const: COMMON NORMALS: patient oriented x3 and alert GENERAL APPEARANCE: cooperative ORIENTATION/CONSCIOUSNESS: Yes awake HENMT: COMMON NORMALS: oropharynx normal Neck/C-Spine: COMMON NORMALS: no JVD Resp: COMMON NORMALS: normal respiratory effort and clear to auscultation bilaterally AUSCULTATION: clear to auscultation bilaterally Cardio: COMMON NORMALS: no JVD, regular rhythm, S1 normal heart sound present, S2 normal heart sound present and No murmurs present (Cardio) RHYTHM: regular rhythm HEART SOUNDS: S1 normal heart sound present and S2 normal heart sound present GI: COMMON NORMALS: Normal to inspection, nondistended, normoactive bowel sounds present, Soft to palpation and non-tender PALPATION: Yes Soft to palpation OTHER: Abdomen distended with ascites. Extremity: COMMON NORMALS: no joint enlargement and no pedal edema OTHER: L BKA Neuro: COMMON NORMALS: patient oriented x3 and moves all extremities SENSORIUM/ORIENTATION: Yes alert Skin: COMMON NORMALS: no rashes or lesions noted GENERAL SKIN EXAM: no rashes or lesions noted TS Data Studies Completed and Pending Pending at discharge Category Date Time Status ABO/Rh Type Routine Lab 11/22/23 20:09 Results Bilirubin Direct Routine Lab 11/24/23 11:51 Received Complete Blood Count w/Auto AM LABS Lab 11/25/23 04:00 Ordered Complete Blood Count w/Auto AM LABS Lab 11/26/23 04:00 Ordered Complete Crossmatch Routine Lab 11/22/23 20:09 Results Comprehensive Metabolic Panel AM LABS Lab 11/25/23 04:00 Ordered Comprehensive Metabolic Panel AM LABS Lab 11/26/23 04:00 Ordered DIC Profile Routine Lab 11/24/23 11:51 Results FFP [Frozen Plasma FZ <24 1st Cont] Routine Lab 11/23/23 18:30 Results Fibrinogen Degradation Product Routine Lab 11/24/23 12:25 Received LAB Peripheral Smear Routine Lab 11/24/23 11:51 Received Occult Blood Stool [Immunochemical Fecal OCB] Routine Lab 11/22/23 21:03 Uncollected PRBC [Leukocyte Reduced RBC] Routine Lab 11/22/23 20:09 Results Platelets Leuko-Reduced Routine Lab 11/23/23 18:29 Results [facility] Stat Lab 11/22/23 20:09 Results Type and Screen Routine Lab 11/22/23 20:09 Results Completed Studies During Hospitalization Category Date Time Status CTA abdomen pelvis [CT angio abdomen pelvis 74171] Stat Cat Scan 11/23/23 17:52 Completed CXRP [XR chest 1V portable [id number]] Routine Exams 11/23/23 13:20 Completed XR chest 1V portable [id number] Stat Exams 11/22/23 18:54 [place] [id number] Routine Ultrasound 11/23/23 09:48 Completed CV. echo limited [id number] Routine Ultrasound 11/23/23 09:47 Completed Laboratory Last Values WBC 7.49 10^3/uL (3.29-11.43) 11/24/23 06:05 RBC 2.23 10^6/uL (3.85-5.65) L 11/24/23 06:05 Hgb 7.70 g/dL (11.27-16.99) L 11/24/23 11:51 Hct 23.8 % (37-53) L 11/24/23 11:51 MCV 90.6 fl (82-101) 11/24/23 06:05 MCH 28.3 pg (27-33) 11/24/23 06:05 MCHC 31.2 g/dL (30-55) D 11/24/23 06:05 RDW 18.7 % (12.1-15.1) H 11/24/23 06:05 Plt Count 168 10^3/cmm (157-399) 11/24/23 06:05 MPV 10.4 fL (7.4-10.4) 11/24/23 06:05 Neut % (Auto) 70.4 % 11/24/23 06:05 Lymph % (Auto) 11.2 % 11/24/23 06:05 [place] % (Auto) 9.7 % 11/24/23 06:05 Eos % (Auto) 6.9 % 11/24/23 06:05 Baso % (Auto) 0.9 % 11/24/23 06:05 Neut # (Auto) 5.26 10^3/uL (1.8-7.7) 11/24/23 06:05 Lymph # (Auto) 0.8 10^3/uL (0.8-4.8) 11/24/23 06:05 [place] # (Auto) 0.7 10^3/uL (0.2-0.9) 11/24/23 06:05 Eos # (Auto) 0.5 10^3/uL (0.0-0.8) 11/24/23 06:05 Baso # (Auto) 0.1 10^3/uL (0.0-0.1) 11/24/23 06:05 Nucleated RBC % (auto) 0.3 % 11/24/23 06:05 Nucleated RBCs # 0.0 /100WBC 11/24/23 06:05 PT 19.50 SECONDS (12.1-14.9) H 11/23/23 19:00 INR 1.59 (0.8-1.2) H 11/23/23 19:00 D-Dimer 12.02 ug/mLFEU (0-0.59) H 11/22/23 19:06 Sodium 136 mmol/L (136-145) 11/24/23 06:05 Potassium 4.4 mmol/L (3.5-5.1) 11/24/23 06:05 Chloride 92 mmol/L (98-107) L 11/24/23 06:05 Carbon Dioxide 34 mmol/L (22-29) H 11/24/23 06:05 Anion Gap 14.4 (5-19) 11/24/23 06:05 BUN 33 mg/dL (6-20) H 11/24/23 06:05 Creatinine 4.8 mg/dL (0.7-1.2) H 11/24/23 06:05 GFR Calculation 12.8 mL/min (90-130) L 11/24/23 06:05 Glucose 136 mg/dL (65-115) H 11/24/23 06:05 Calculated Osmolality 291 mOsm/kg (285-295) 11/24/23 06:05 Calcium 6.9 mg/dL (8.5-10.5) L 11/24/23 06:05 Phosphorus 4.2 mg/dL (2.5-4.5) 11/23/23 04:15 Magnesium 1.7 mg/dL (1.7-2.3) 11/23/23 04:15 Total Bilirubin 1.8 mg/dL (0.15-1.2) H 11/24/23 06:05 AST 11 U/L (0-40) 11/24/23 06:05 ALT 8 U/L (0-41) 11/24/23 06:05 Alkaline Phosphatase 73 U/L (40-130) 11/24/23 06:05 Lactate Dehydrogenase 208 U/L (135-225) 11/24/23 11:51 Troponin T Baseline 301 ng/L (0-15) H* 11/22/23 19:06 Troponin T 120 Minute 311.1 ng/L (0-15) H 11/22/23 21:11 Delta Troponin T 10.1 ABS# (0-10) H* 11/22/23 21:11 Troponin T Hi Sens 6Hr 328.0 ng/L (0-15) H 11/23/23 02:36 Troponin T Hi Sens 6Hr Delta 27.0 ng/L (0-12) H* 11/23/23 02:36 Total Protein 6.1 g/dL (6.6-8.7) L 11/24/23 06:05 Albumin 2.7 g/dL (3.5-5.2) L 11/24/23 06:05 Globulin 3.4 g/dL (1.3-4.6) 11/24/23 06:05 Hep Bs Antigen Non-reactive (Nonreactive) 11/24/23 06:05 Hep Bs Antibody 44.7 (11.5-1000) 11/24/23 06:05 Blood Type A Positive 11/22/23 20:09 Rho(D) Type Rh positive 11/22/23 20:09 Antibody Screen Negative 11/22/23 20:09 Crossmatch See Detail 11/22/23 20:09 Radiology Impressions Abdomen/Pelvis CTA 11/23/23 17:52 IMPRESSION: 1. Yehar-tl-uodseeii hyperdense material in the dependent left paracolic gutter and trace hyperdense material in the dependent pelvis likely representing small amounts of blood. No evidence of active extravasation to suggest active bleeding. 2. Jjrnzncn-af-ftgfo ascites, increased compared to prior study. 3. Hepatic cirrhosis with evidence of portal hypertension. 4. Other stable findings above. Recent Clincial Data Last Vital Signs Temp 97.2 F L 11/24/23 12:44 Pulse 90 11/24/23 12:44 Resp 14 11/24/23 12:44 BP 105/69 11/24/23 12:44 Pulse Ox 96 11/24/23 12:22 O2 Del Method Oxymask 11/24/23 08:11 O2 Flow Rate 3 11/24/23 08:11 Vital Signs Temp Pulse Resp BP Pulse Ox O2 Del Method O2 Flow Rate 11/24/23 12:44 97.2 F L 90 14 105/69 11/24/23 12:22 16 96 11/24/23 12:00 89 12 91/65 100 11/24/23 11:45 89 12 118/51 100 11/24/23 11:30 90 18 99 11/24/23 11:15 90 17 105/69 100 11/24/23 11:00 90 16 119/55 99 11/24/23 10:45 92 16 96/78 98 11/24/23 10:30 91 11 L 96/39 98 11/24/23 10:15 91 17 103/60 96 11/24/23 10:00 90 15 92/70 97 11/24/23 09:45 88 13 108/74 100 11/24/23 09:30 88 19 H 112/69 95 11/24/23 09:30 88 19 H 112/69 94 11/24/23 09:28 88 12 112/69 98 11/24/23 09:15 89 12 102/71 99 11/24/23 09:00 89 16 102/71 99 11/24/23 08:54 87 15 88/43 11/24/23 08:45 87 11 L 95/35 100 11/24/23 08:30 86 11 L 92/44 99 11/24/23 08:15 86 9 L 91/54 100 11/24/23 08:11 86 18 100 Oxymask 3 11/24/23 08:00 85 13 102/64 100 11/24/23 07:55 97.2 F L 85 11 L 100/60 11/24/23 07:45 85 16 103/53 100 11/24/23 07:30 85 12 103/53 100 11/24/23 07:15 85 13 95/52 100 11/24/23 07:00 84 15 92/43 99 11/24/23 07:00 98.0 F 84 14 88/57 97 11/24/23 06:45 84 11 L 90/46 100 11/24/23 06:30 84 15 92/45 99 11/24/23 06:15 84 18 84/53 100 11/24/23 06:00 97.6 F 83 15 89/54 100 Oxymask 3 11/24/23 06:00 81 11/24/23 05:45 83 17 82/48 98 11/24/23 05:30 83 11 L 95/35 100 11/24/23 05:18 97.8 F 85 12 100/60 100 11/24/23 05:15 83 12 90/61 99 11/24/23 05:00 82 12 91/57 100 11/24/23 04:45 83 14 92/67 99 11/24/23 04:30 82 13 86/53 99 11/24/23 04:21 98.1 F 82 12 86/53 100 11/24/23 04:15 82 17 97/58 99 11/24/23 04:00 82 12 114/94 98 11/24/23 03:56 12 99 11/24/23 03:49 97.7 F 82 12 114/94 98 11/24/23 03:45 83 19 H 96/55 11/24/23 03:30 83 9 L 82/50 11/24/23 03:15 82 12 77/46 100 11/24/23 03:00 83 16 79/62 100 11/24/23 02:45 81 15 106/83 96 11/24/23 02:30 81 13 83/60 100 11/24/23 02:15 83 14 119/58 99 11/24/23 02:00 82 12 102/37 99 11/24/23 01:45 81 11 L 99/64 100 11/24/23 01:30 81 11 L 113/64 100 Intake & Output/Weight 11/22/23 11/23/23 11/24/23 04/28/24 06:59 06:59 06:59 06:59 Intake Total 435.25 / 435.25 4642.0 / 4642.0 2290.125 / 2290.125 Output Total 2133 / 2133 Balance 435.25 / 435.25 4642.0 / 4642.0 157.125 / 157.125 Weight 115.865 kg 117.934 kg 122.22 kg Vitals Last Vital Signs Temp 97.2 F L 11/24/23 12:44 Pulse 90 11/24/23 12:44 Resp 14 11/24/23 12:44 BP 105/69 11/24/23 12:44 Pulse Ox 96 11/24/23 12:22 O2 Del Method Oxymask 11/24/23 08:11 O2 Flow Rate 3 11/24/23 08:11 TS Medications Medications Acetaminophen (Acetaminophen 500 Mg Tablet) 500 mg PO Q4H PRN PRN Reason: fever Albuterol/Ipratropium (Ipratropium-Albuterol 3 Ml Neb) 3 ml INHALATION Q6H PRN PRN Reason: SHORTNESS OF BREATH Amiodarone HCl (Amiodarone 200 Mg Tablet) 200 mg PO DAILY [facility] Last Admin: 11/24/23 10:56 Dose: 200 mg Apixaban (Apixaban 5 Mg Tablet) 5 mg PO BID [facility] Last Admin: 11/23/23 09:03 Dose: 5 mg Atorvastatin Calcium (Atorvastatin 40 Mg Tablet) 40 mg PO DAILY [facility] Last Admin: 11/24/23 10:56 Dose: 40 mg Clopidogrel Bisulfate (Clopidogrel 75 Mg Tablet) 75 mg PO DAILY [facility] Last Admin: 11/23/23 09:03 Dose: 75 mg norepinephrine (Levophed) 4 mg in 250 mls @ 0 mls/hr IV .Q0M [facility]; Protocol Last Admin: 11/24/23 12:26 Dose: 14 mcg/min, 52.5 mls/hr Sodium Chloride (Sodium Chloride 0.9%) 1,000 mls @ 0 mls/hr IV .Q0M PRN PRN Reason: hypotension or symptomatic Albumin Human (Albumin) 12.5 gm in 50 mls @ 60 mls/hr IV PRN PRN PRN Reason: Hypotension and/or symptomatic Sodium Chloride (Sodium Chloride 0.9%) 1,000 mls @ 0 mls/hr IV .Q0M PRN PRN Reason: hypotension or symptomatic Albumin Human (Albumin) 12.5 gm in 50 mls @ 60 mls/hr IV PRN PRN PRN Reason: Hypotension and/or symptomatic Levothyroxine Sodium (Levothyroxine 25 Mcg Tablet) 25 mcg PO QAM [facility] Last Admin: 11/24/23 06:08 Dose: 25 mcg Non-Formulary Medication (Sodium Zirconium Cyclosilicate [Lokelma]) 0 gm PO DIRECTED [facility] Non-Formulary Medication (Vit B,Y-Ol-Tyow-Selen-Vit D3-E [Renaplex-D]) 1 tab PO DAILY [facility] Last Admin: 11/24/23 11:00 Dose: Not Given Ondansetron HCl (Ondansetron 2 Mg/Ml Sdv 2 Ml) 4 mg IVP Q6H PRN PRN Reason: NAUSEA AND VOMITING Last Admin: 11/22/23 21:20 Dose: 4 mg Pantoprazole Sodium (Pantoprazole 40 Mg Sdv) 40 mg IVP BID [facility] Last Admin: 11/24/23 10:56 Dose: 40 mg Senna/Docusate Sodium (Sennosides-Docusate Tablet) 1 tab PO DAILY [facility] Last Admin: 11/24/23 10:55 Dose: 1 tab Sodium Chloride (Sodium Chloride 0.9% 100 Ml Bag) 50 ml IV PRN PRN PRN Reason: Blood transfusion prime and flush Stop: 11/24/23 14:15 Sodium Chloride (Sodium Chloride 0.9% 100 Ml Bag) 50 ml IV PRN PRN PRN Reason: Blood transfusion prime and flush Stop: 11/24/23 18:29 Sodium Chloride (Sodium Chloride 0.9% 100 Ml Bag) 50 ml IV PRN PRN PRN Reason: Blood transfusion prime and flush Stop: 11/25/23 07:56 Trazodone HCl (Trazodone 50 Mg Tablet) 50 mg PO BEDTIME [facility] Last Admin: 11/23/23 21:32 Dose: 50 mg Discontinued Medications Alprazolam (Alprazolam 0.5 Mg Tablet) 0.5 mg PO ONCE ONE Stop: 11/22/23 23:47 Last Admin: 11/23/23 00:16 Dose: 0.5 mg Heparin Sodium (Porcine) (Heparin, Porcine 1,000 Unit/Ml Inj 10 Ml) 10,000 unit INTRACATH PRN ONE Stop: 11/23/23 07:38 Last Admin: 11/23/23 12:43 Dose: Not Given Heparin Sodium (Porcine) (Heparin, Porcine 1,000 Unit/Ml Inj 10 Ml) 1,000 unit IV PRN ONE Stop: 11/23/23 07:38 Last Admin: 11/23/23 12:44 Dose: Not Given Heparin Sodium (Porcine) (Heparin, Porcine 1,000 Unit/Ml Inj 10 Ml) 10,000 unit INTRACATH PRN ONE Stop: 11/24/23 06:42 Last Admin: 11/24/23 10:59 Dose: Not Given Heparin Sodium (Porcine) (Heparin, Porcine 1,000 Unit/Ml Inj 10 Ml) 1,000 unit IV PRN ONE Stop: 11/24/23 06:42 Last Admin: 11/24/23 07:45 Dose: 1,000 unit Sodium Chloride (Sodium Chloride 0.9%) 500 mls @ 999 mls/hr IV .Q31M ONE Stop: 11/22/23 19:30 Last Admin: 11/22/23 19:24 Dose: 999 mls/hr Albumin Human (Albumin) 25 g in 100 mls @ 60 mls/hr IV Q8H [place] Stop: 11/23/23 11:00 Last Admin: 11/23/23 04:53 Dose: 60 mls/hr Magnesium Sulfate/Dextrose (Magnesium Sulfate Premix) 1 gm in 100 mls @ 200 mls/hr IV ONCE ONE Stop: 11/23/23 10:18 Last Admin: 11/23/23 10:51 Dose: 200 mls/hr Sodium Chloride (Sodium Chloride 0.9% (100 Ml)) Confirm Administered Dose 100 mls @ as directed .ROUTE .STK-MED ONE Stop: 11/24/23 08:29 Iohexol (Iohexol 350 Mg/Ml 500 Ml Btl (Per Ml)) 0 ml IV ONCE ONE Stop: 11/23/23 19:21 Last Admin: 11/23/23 19:20 Dose: 100 ml Morphine Sulfate (Morphine Ir 15 Mg Tablet) 15 mg PO Q6H PRN PRN Reason: MODERATE PAIN Last Admin: 11/24/23 03:56 Dose: 15 mg Morphine Sulfate (Morphine 4 Mg/Ml Sdv 1 Ml) 1 mg IVP ONCE ONE Stop: 11/24/23 11:58 Last Admin: 11/24/23 12:22 Dose: 1 mg Phytonadione (Phytonadione (Adult) 10 Mg/Ml Ampule 1 Ml) 5 mg PO ONCE ONE Stop: 11/24/23 09:10 Last Admin: 11/24/23 10:56 Dose: 5 mg Sodium Chloride (Sodium Chloride 0.9% 100 Ml Bag) 50 ml IV PRN PRN PRN Reason: Blood transfusion prime and flush Stop: 11/23/23 19:53 Last Admin: 11/23/23 01:35 Dose: 50 ml Allergies vancomycin Allergy (Unknown, Verified 11/02/23 10:13) ADR-Itching,Rash linezolid [From Zyvox] Allergy (Verified 11/02/23 10:13) tendonitis ciprofloxacin [From Cipro] Adverse Reaction (Severe, Verified 11/02/23 10:13) Tendonitis dextrose 5 % in water Allergy (Unknown, Uncoded 11/02/23 10:13) tendonitis Home Medications Wheel Chair #1 ea 08/18/21 [Rx Confirmed 11/23/23] ropinirole 0.25 mg tablet 0.25 mg PO BEDTIME PRN Restless Leg(S) 08/22/21 [History Confirmed 11/23/23] ondansetron HCl 4 mg tablet 4 mg PO Q4H PRN Nausea 04/11/22 [History Confirmed 11/23/23] Compression Stockings #1 ea 04/12/22 [Rx Confirmed 11/23/23] [place] boot modification #1 ea 07/17/22 [Rx Confirmed 11/23/23] oxycodone 5 mg tablet 5 mg PO Q6H PRN Pain 08/16/22 [History Confirmed 11/23/23] B-complex with vitamin C 1 cap PO DAILY 10/16/22 [History Confirmed 11/23/23] albuterol sulfate 90 mcg/actuation aerosol inhaler 2 puff inhalation Q6H PRN Shortness Of Breath 10/16/22 [History Confirmed 11/23/23] diphenhydramine HCl 25 mg tablet (Benadryl Allergy) 25 mg PO DAILY PRN itching 10/16/22 [History Confirmed 11/23/23] hydroxyzine HCl 25 mg tablet 25 mg PO Q6H PRN Anxiety 10/16/22 [History Confirmed 11/23/23] polyethylene glycol 3350 17 gram/dose oral powder (Miralax) 17 g PO BID PRN Constipation 10/16/22 [History Confirmed 11/23/23] venlafaxine 75 mg capsule,extended release 24 hr (Effexor XR) 75 mg PO QAM 10/16/22 [History Confirmed 11/23/23] Prevalon boot #1 ea 11/21/22 [Rx Confirmed 11/23/23] diabetic shoes with 3 heat molded insoles #1 ea 12/15/22 [Rx Confirmed 11/23/23] gabapentin 300 mg capsule 300 mg PO TID PRN NERVE PAIN 01/02/23 [History Confirmed 11/23/23] vit B,C-folic ac 800 mcg-zinc 12.5 mg-selen-D3 2,000 unit-vit E tablet (RenaPlex-D) 1 tab PO DAILY 05/07/23 [History Confirmed 11/23/23] atorvastatin 80 mg tablet 80 mg PO DAILY 07/02/23 [History Confirmed 11/23/23] clopidogrel 75 mg tablet 75 mg PO DAILY 07/02/23 [History Confirmed 11/23/23] pantoprazole 40 mg tablet,delayed release 40 mg PO DAILY 07/02/23 [History Confirmed 11/23/23] mirtazapine 30 mg disintegrating tablet 30 mg PO DAILY 07/27/23 [History Confirmed 11/23/23] nitroglycerin 0.1 mg/hr transdermal 24 hour patch 1 patch transdermal DAILY 07/27/23 [History Confirmed 11/23/23] arginine 7 gram-glutam 7 gram-CaHMB 1.5 [id number]-sg-min oral pwd pkt (Mehdi (with collagen)) 1 packet PO BID 10/16/23 [History Confirmed 11/23/23] sodium zirconium cyclosilicate 10 gram oral powder packet (Lokelma) See Rx Instructions .Route .COMPLEX 10/16/23 [History Confirmed 11/23/23] trazodone 50 mg tablet 50 mg PO BEDTIME 10/16/23 [History Confirmed 11/23/23] brexpiprazole 0.5 mg tablet (Rexulti) 0.5 mg PO QAM 11/05/23 [History Confirmed 11/23/23] cilostazol 50 mg tablet 50 mg PO DAILY 11/05/23 [History Confirmed 11/23/23] nitroglycerin 0.4 mg sublingual tablet 0.4 mg buccal DAILY PRN Chest Pain 11/05/23 [History Confirmed 11/23/23] apixaban 5 mg tablet (Eliquis) 5 mg PO BID@0900,2100 30 days #30 tabs 11/16/23 [Rx Confirmed 11/23/23] levothyroxine 25 mcg tablet 25 mcg PO QAM 30 days #30 tabs 11/16/23 [Rx Confirmed 11/23/23] amiodarone 200 mg tablet (Pacerone) 200 mg PO BID 11/19/23 [History Confirmed 11/23/23] amiodarone 200 mg tablet (Pacerone) 200 mg PO DAILY 11/19/23 [History Confirmed 11/23/23] Discharge Plan Discharge Patient Disposition: Xfer Short-Term Hosp Condition: Stable Prescriptions: No Action (DME) Wheel Chair See Rx Instructions .Route .MEDSUPPLY Qty: 1 0RF Rx Instructions: As directed HOME (DME) Compression Stockings See Rx Instructions .Route .MEDSUPPLY Qty: 1 0RF Rx Instructions: As directed (DME) [place] boot modification See Rx Instructions .Route .MEDSUPPLY Qty: 1 0RF Rx Instructions: Straps are failing (DME) diabetic shoes with 3 heat molded insoles See Rx Instructions .Route .MEDSUPPLY Qty: 1 0RF Rx Instructions: As directed to HOME (DME) Prevalon boot See Rx Instructions .Route .MEDSUPPLY Qty: 1 0RF Rx Instructions: As directed ropinirole 0.25 mg tablet 0.25 mg PO BEDTIME PRN (Reason: Restless Leg(S)) oxycodone 5 mg Tablet 5 mg PO Q6H PRN (Reason: Pain) clopidogrel 75 mg Tablet 75 mg PO DAILY atorvastatin 80 mg tablet 80 mg PO DAILY pantoprazole 40 mg tablet,delayed release (DR/EC) 40 mg PO DAILY RenaPlex-D 800 mcg-12.5 mg -2,000 unit tablet 1 tab PO DAILY mirtazapine 30 mg tablet,disintegrating 30 mg PO DAILY nitroglycerin 0.1 mg/hr patch 24 hour 1 patch transdermal DAILY Rexulti 0.5 mg tablet 0.5 mg PO QAM Hold Instructions: Resume on 12/24/23. hold until you see PMD cilostazol 50 mg tablet 50 mg PO DAILY Hold Instructions: Resume on 12/24/23. Hold until you see primary care Patient Comments: Patient states that they believe that this medication was discontinued for them. nitroglycerin 0.4 mg tablet, sublingual 0.4 mg buccal DAILY PRN (Reason: Chest Pain) Rx Instructions: NOT TO EXCEED 3 TABLETS levothyroxine 25 mcg Tablet 25 mcg PO QAM 30 Days Qty: 30 0RF Eliquis 5 mg Tablet 5 mg PO BID@0900,2100 30 Days Qty: 30 0RF ondansetron HCl 4 mg tablet 4 mg PO Q4H PRN (Reason: Nausea) venlafaxine [Effexor XR] 75 mg Capsule,Extended Release 24hr 75 mg PO QAM hydroxyzine HCl 25 mg Tablet 25 mg PO Q6H PRN (Reason: Anxiety) polyethylene glycol 3350 [Miralax] 17 gram/dose Powder 17 g PO BID PRN (Reason: Constipation) albuterol sulfate 90 mcg/actuation Hfa Aerosol Inhaler 2 puff INHALATION Q6H PRN (Reason: Shortness Of Breath) Patient Comments: pt states he does not take this B-complex with vitamin C Capsule 1 cap PO DAILY diphenhydramine HCl [Benadryl Allergy] 25 mg tablet 25 mg PO DAILY PRN (Reason: itching) gabapentin 300 mg capsule 300 mg PO TID PRN (Reason: NERVE PAIN) trazodone 50 mg tablet 50 mg PO BEDTIME Mehdi (with collagen) 7-7-1.5 gram Powder In Packet 1 packet PO BID Rx Instructions: mix 1 packet with 8-10 oz liquid Lokelma 10 gram powder in packet See Rx Instructions .ROUTE .COMPLEX Rx Instructions: as directed amiodarone [Pacerone] 200 mg Tablet 200 mg PO BID amiodarone [Pacerone] 200 mg tablet 200 mg PO DAILY Rx Instructions: 2 tabs twice daily for 3 days, 1 tab twice daily for 14 days, then 1 tab daily Referrals: Sulma Wetzel MD [Primary Care Provider] - Patient Instructions: Opioid Safety Transfer Attestations Time Spent in Transfer Care: greater than 30 min Status at Transfer: Cognitive status at transfer: cognitively intact ; Behavioral status at transfer: cooperative ; Quality Metrics Clinical Quality Measures [ No reported AMI, CVA or VTE this stay] Coding Level of Care Code Critical Care >/= 30 minutes Critical care time (in minutes): 60 The high probability of a clinically significant, sudden or life threatening deterioration, as referenced in this documentation, required my full and direct attention, intervention and personal management. The critical care time shown is in addition to time spent performing any reported separately billable procedures and includes the following: [x] Data and vital sign review and interpretation [x ] Patient assessment, examination and intervention [x] Medication orders and management [x] Patient/Family updates as able [x] Care Coordination and Documentation. Diagnoses Elevated troponin R79.89 Anemia requiring transfusions D64.9 Atherosclerotic heart disease of [place] coronary artery with other forms of angina pectoris I25.118 Nonrheumatic aortic valve stenosis I35.0 Cardiac valve disease etiology: nonrheumatic End-stage renal disease on hemodialysis N18.6; Z99.2 Type 2 diabetes mellitus with chronic kidney disease on chronic dialysis, without long-term current use of insulin E11.22; N18.6; Z99.2 Diabetes mellitus intermediate frame tender insulin use: without penitentiary use Diabetes mellitus complication status: with kidney complications Diabetes mellitus complication detail: with chronic kidney disease Chronic kidney disease stage: on chronic dialysis
[2023-11-24 13:25] LABS: Fibrinogen 413 mg/dL (174-498)
[2023-11-24 13:27] LABS: INR 1.43 (0.8-1.2)
[2023-11-24 13:28] LABS: Partial Thromboplastin Time 34.9 SECONDS (23.9-36.7)
[2023-11-24 13:36] LABS: D Dimer 8.91 ug/mLFEU (0-0.59)
[2023-11-24 13:40] LABS: LAB Peripheral Smear Sent for Review
[2023-11-24] MEDS: sodium chloride 0.9% 100 mL Bag 50 ML IV (13:54)
[2023-11-24] MEDS: LORazepam 2 mg/mL INJ 10 mL MDV 0.5 MG IVP (14:33)
--- NOTE | 2023-11-24 15:08 | PC.NURSE ---
Report called called to Kalee Manuel. Patient picked up and transported by [facility] to [place] at [address]. Dr. Charles notified and Claudine- patient's sister.
[2023-12-06 00:49] LABS: Fibrinogen Degradation Product 10 mcg/mL (LESS THAN 5)
== END 2023-11-24 15:16 | disposition short-term general hospital (02) | DRG 871 ==
LOC: ER 19:52 → ICU 20:35
PROVIDERS: Hospitalist; Admitting Provider Internal Medicine; Emergency Provider Emergency Medicine; PCP Internal Medicine; Visit Provider Internal Medicine
DX: R57.1 Hypovolemic shock (principal); N18.6 End stage renal disease; I48.20 Chronic atrial fibrillation, unspecified; M86.8X7 Other osteomyelitis, ankle and foot; I13.2 Hypertensive heart and chronic kidney disease with heart failure and with stage 5 chronic kidney disease, or end stage renal disease; R79.89 Other specified abnormal findings of blood chemistry; I35.0 Nonrheumatic aortic (valve) stenosis; E87.6 Hypokalemia; Z79.01 Long term (current) use of anticoagulants; Z79.02 Long term (current) use of antithrombotics/antiplatelets; E11.22 Type 2 diabetes mellitus with diabetic chronic kidney disease; E11.40 Type 2 diabetes mellitus with diabetic neuropathy, unspecified; Z95.5 Presence of coronary angioplasty implant and graft; Z89.512 Acquired absence of left leg below knee; E78.5 Hyperlipidemia, unspecified; E11.69 Type 2 diabetes mellitus with other specified complication; E11.65 Type 2 diabetes mellitus with hyperglycemia; J44.9 Chronic obstructive pulmonary disease, unspecified; I73.9 Peripheral vascular disease, unspecified; I50.9 Heart failure, unspecified; I25.118 Atherosclerotic heart disease of native coronary artery with other forms of angina pectoris; D63.1 Anemia in chronic kidney disease; E66.01 Morbid (severe) obesity due to excess calories; Z68.35 Body mass index [BMI] 35.0-35.9, adult; Z85.528 Personal history of other malignant neoplasm of kidney
CPT/HCPCS: 36415; 36430; 36573; 36592; 49083; 71045; 74174; 80048; 80053; 80503; 82248; 83615; 83735; 84100; 84484; 85014; 85018; 85025; 85362; 85378; 85384; 85610; 85730; 86706; 86850; 86900; 86920; 86927; 87340; 90935; 93005; 93308; 93970; 96365; 96376; 99285; C1751; C9113; J1644; J2060; J2270; J2405; J3430; J3475; J7040; P9012; P9016; P9017; P9035; P9040; P9046; Q3014; Q9967

== ENCOUNTER 2023-12-10 11:17 | Day surgery (SDC) | payer MEDICARE, MEDICAID, SELFPAY ==
[2023-12-10] VITALS (8 sets, daily range): BP systolic 54–73; BP diastolic 33–48; PULSE 91; RESP 20; TEMP 36.6; O2SAT 99; BMI 29.5
--- NOTE | 2023-12-10 11:40 | US_ITS ---
WS: [id number] Abdominal ultrasound, limited. History: Evaluate for ascites. Comparison: None. All 4 quadrants are imaged by ultrasound to evaluate for ascites. There is a moderate amount of ascit es in all 4 quadrants. Patient's blood pressure was extremely low and patient was symptomatic. No par acentesis performed at this time. Note: Patient was directed to proceed to the emergency department. He has declined this and has mary d a release form to be discharged against director of medical services. This was documented by nursing. US/US abdomen limited [id number] IMPRESSION: No paracentesis performed due to patient's hypotension. Patient was symptomatic .
--- NOTE | 2023-12-10 12:33 | PC.NURSE ---
[id number] Pt here for paracentesis. Pts BP very low as documented in the chart. Dr Holt was notified by Pete Parker of low BP, and said that we could not do the paracentesis with the BP that low. Pt was told that we needed to take him to the ER, but he refused and just wanted to go back to the group home. I instructed the patient that he really should let us take him to the ED. He signed an AMA form and I called the group home and gave report to Taty.
== END 2023-12-10 12:50 | disposition home or self-care (01) ==
PROVIDERS: Radiology Diagnostic Radiology; PCP Internal Medicine; Visit Provider Registered Nurse
DX: R18.8 Other ascites (principal)
CPT/HCPCS: 76705

== ENCOUNTER 2023-12-18 16:53 | Emergency (ER) | payer MEDICARE, MEDICAID, SELFPAY ==
[2023-12-18] VITALS (13 sets, daily range): BP systolic 74–94; BP diastolic 39–59; PULSE 71–89; RESP 9–26; TEMP 36.6; O2SAT 91–100
--- NOTE | 2023-12-18 17:32 | CTR_ITS ---
PROCEDURE INFORMATION: Exam: CT Abdomen And Pelvis Without Contrast Exam date and time: 12/18/2023 6:55 PM Age: 53 years old Clinical indication: Other: Distention; Additional info: Esrd, no contrast TECHNIQUE: Imaging protocol: Computed tomography of the abdomen and pelvis without contrast. Radiation optimization: All CT scans at this facility use at least one of these dose optimization techniques: automated exposure control; mA and/or kV adjustment per patient size (includes targeted exams where dose is matched to clinical indication); or iterative reconstruction. COMPARISON: CT angio abdomen pelvis [id number] 11/23/2023 7:20 PM RADIATION DOSE METRICS: Total DLP (mGy-cm): 1466 FINDINGS: Pleural spaces: Small bilateral pleural effusions, right greater than left have slightly increased from 11/23/2023. Bibasilar zrje-sl-sovgoppa consolidation especially in the right is not significantly changed, likely predominantly due to atelectasis rather than pneumonia. Heart: Gwzs-ul-aauxtoxt cardiomegaly, stable. No pericardial effusion. Extensive coronary calcification. Moderate aortic and mitral annular calcification. Liver: Features of mild hepatic cirrhosis again demonstrated. Gallbladder and bile ducts: Normal. No calcified stones. No ductal dilation. Pancreas: Normal. No ductal dilation. Spleen: Stable khnn-hy-iwecevzg splenomegaly up to 16.4 cm. Adrenal glands: Normal. No mass. Kidneys and ureters: Moderate bilateral renal atrophy without hydronephrosis. Focal plaque-like hyperdense area in the lower pole of the right kidney measuring 2 x 1 cm (series 4, image 56) is uncha moderate superior endplate concave compression of L1 is unchanged. nged. Stomach and bowel: Moderate diffuse gastric wall thickening/portal gastropathy, portal colopathy and enteropathy again demonstrated. Moderate volume ascites is decreased from the prior study. Moderate amount of colonic stool retention. Appendix: Not visualized. Intraperitoneal space: Moderate central mesenteric edema has increased. Vasculature: No aortic aneurysm. Lymph nodes: Partially imaged mildly enlarged axillary lymph nodes. multiple moderately bulky external iliac and bilateral inguinal as well as common iliac and para-aortic and aortocaval adenopathy are noted, the largest up to 4 cm in diameter, further mildly increased. Urinary bladder: Empty urinary bladder is diffusely thick-walled similar to prior study. Reproductive: Unremarkable as visualized. Bones/joints: Egto-ea-jltxethh lumbar spondylosis. Subacute fractures of the lateral left 4th-6th ribs with minimal callus formation again noted similar to 11/23/2023. Additional subacute fractures of the anterior right 4th-6th ribs appear new. Soft tissues: Diffuse extensive body wall edema is further mildly increased. Diffuse patchy dystrophic subcutaneous calcification in the abdominal wall again demonstrated. New line moderate fat containing umbilical hernia is unchanged. Moderate gynecomastia. CT/CT abdomen pelvis wo con [id number] IMPRESSION: 1. Hepatic cirrhosis and portal hypertension . Xqvd-qj-kpokdpep splenomegaly. Ohfb-qi-lldnrbro moderate ascites is smaller in volume compared to 11/23/2023. 2. Increased diffuse body wall edema, small bilateral pleural effusions and central mesenteric congestion. Difficult to exclude spontaneous peritonitis in the setting. Clinical correlation and ascites fluid analysis as warranted. 3. Volume overload contributed to by reported end-stage renal disease. Bilaterally atrophic kidneys. Jpga-ez-chrtxfru cardiomegaly. 4. Multiple bulky inguinal, iliac and retroperitoneal adenopathy further increased from the prior study. Differential diagnosis includes lymphoma versus inflammatory etiology. 5. Subacute bilateral rib fractures, new on the right side since 11/23/2023.
--- NOTE | 2023-12-18 17:57 | ECG_ITS ---
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 Measurements Intervals [place] Rate: 80 P: 23 FL: 214 QRS: 128 QRSD: 122 T: -6 QT: 417 QTc: 481 Interpretive Statements SINUS RHYTHM WITH FIRST DEGREE AV BLOCK INDETERMINATE AXIS RIGHT BUNDLE BRANCH BLOCK [120+ ms QRS DURATION, UPRIGHT V1, 40+ ms S IN I/aVL/V4/V5/V6] LEFT POSTERIOR FASCICULAR BLOCK [QRS AXIS > 109, INFERIOR Q] POSSIBLE ANTERIOR MYOCARDIAL INFARCTION , PROBABLY OLD [30 ms Q WAVE IN V3/V4, OR R < 0.2 mV IN V4] Compared to ECG 12/10/2023 23:21:32 First degree AV block now present Indeterminate axis now present Myocardial infarct finding still present Electronically Signed On 12-19-2023 0:34:48 CDT by Shirin Kendrick M.D. [id number]
[2023-12-18 18:27] LABS: Basophils % 0.6 %; Eosinophils # 0.4 10^3/uL (0.0-0.8); Eosinophils % 10.8 %; Hematocrit 27.4 % (37-53); Lymphocytes # 0.4 10^3/uL (0.8-4.8); Lymphocytes % 12.1 %; Mean Corpuscular HGB Conc 30.7 g/dL (30-55); Mean Corpuscular Hemoglobin 30.1 pg (27-33); Mean Corpuscular Volume 98.2 fl (82-101); Mean Platelet Volume 10.6 fL (7.4-10.4); Monocytes # 0.2 10^3/uL (0.2-0.9); Monocytes % 6.8 %; Neutrophils # 2.23 10^3/uL (1.8-7.7); Neutrophils % 69.1 %; Nucleated Red Blood Cells % 0 %; Platelet Count 138 10^3/cmm (157-399); Red Blood Count 2.79 10^6/uL (3.85-5.65); Red Cell Distribution Width 19.2 % (12.1-15.1); White Blood Count 3.23 10^3/uL (3.29-11.43)
[2023-12-18 18:29] LABS: Erythrocyte Sedimentation Rate 20 mm/hr (0-10)
[2023-12-18] MEDS: morphine 4 mg/mL SDV 1 mL IVP ×2 (18:38→22:53)
[2023-12-18 18:39] LABS: Lactic Sepsis W/Reflex 1.2 mmol/L (0.5-2.2)
[2023-12-18] MEDS: ondansetron 2 mg/ML SDV 2 mL 4 MG IVP (18:39)
--- NOTE | 2023-12-18 18:41 | W.ED.ABDPA2 ---
Documented by User: VERO Rivera 12/18/23 22:31 HPI - Abdominal Pain General: Chief Complaint: Abdominal Pain Stated Complaint: ABD PAIN Time Seen by Provider: 12/18/23 17:14 Source: patient Mode of arrival: EMS Limitations: no limitations History of Present Illness: Patient is a 53-year-old male with significantly extensive past medical history who presents to the emergency department via EMS from [facility] due to abdominal distention and pain onset today. Patient notes he was recently in the hospital at [facility], where he had a permanent port placed that was to drain peritoneal fluid regularly. He notes that he has paracentesis performed weekly, and this port was placed to fix this issue. However, he notes that the port has not been accessed once since being placed, and notes that he has only started to develop more abdominal swelling. He is on dialysis, currently Sunday and had normal dialysis appointment today. He is denying any fever or other new symptoms at this time. senior care also states patient is on palliative care with morphine therapy, though still wants all the treatment. MD elicited complaint: abdominal pain Pertinent past history: other (Significant past medical history) Onset (ago): hour(s) Pain Consistency: constant Location: Diffuse Severity: moderate Associated Symptoms: Reports bloating and nausea; Denies change in stool character, chills, constipation, diarrhea, dysuria, fever(s), hematochezia and vomiting Review of Systems General: Reports: 10 or more systems reviewed and unremarkable except in HPI and below Const: Denies: fever(s), chills, change in appetite, change in weight or diaphoresis ENMT: Denies: throat pain or hoarseness Card: Denies: chest pain, palpitations or lightheadedness Resp: Denies: dyspnea, productive cough or wheezing GI: Reports: abdominal pain, nausea and bloating; Denies: vomiting, diarrhea, constipation, change in stool character or hematochezia : Denies: flank pain, difficulty urinating, dysuria, urinary frequency or urinary urgency Musc: Denies: neck pain or back pain Skin/Breast: Denies: rash or new lesions Neuro: Denies: headache(s) or dizziness PFS ED PFSH: Medical History End stage renal disease on dialysis Atrial fibrillation Type 2 diabetes mellitus CHF (congestive heart failure), NYHA class III Poor prognosis Hepatorenal syndrome Sarcopenia Cirrhosis singletary Hypotension, chronic Anemia Acute hypoxic respiratory failure Anemia requiring transfusions Aortic stenosis Noncompliance End-stage renal disease on hemodialysis Anasarca Uremia Chronic osteomyelitis 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, limited to breakdown of skin Chronic osteomyelitis of right foot Foot osteomyelitis, right Osteomyelitis Cellulitis Necrosis of surgical wound Foot osteomyelitis, left Hypovolemic shock Anemia of chronic disease Ulcer of sacral region, stage 1 Gas gangrene Acquired equinovarus deformity of left foot Pre-ulcerative calluses Xerosis of skin 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 Cellulitis Diabetes BMI 50.0-59.9, adult Diabetic foot ulcers Fracture, thoracic vertebra T7-T8 Osteomyelitis Non-pressure chronic ulcer of other part of right foot with necrosis of muscle Chronic venous insufficiency Chronic dysfunction of both eustachian tubes Lung nodule Hypoglycemia unawareness associated with type 2 diabetes mellitus Chronic ulcer of left foot with fat layer exposed Non-healing ulcer of right foot with fat layer exposed Vitamin D deficiency First degree heart block COPD (chronic obstructive pulmonary disease) Hypertension Urinary retention History of renal cell carcinoma Morbid obesity with BMI of 40.0-44.9, adult Cardiac arrest Anemia Pneumonia due to 2019-nCoV (~07/2020) Renal cell carcinoma History bilateral renal cell carcinoma 2007 then recurrence on the contralateral side 2011. No recurrence for long-term follow-up with some suspicion on CT scan April 2020. Chronic respiratory failure with hypoxia and hypercapnia Obesity hypoventilation syndrome Metabolic alkalosis Accelerated hypertension Restrictive lung disease Obstructive sleep apnea non compliant with home bipap/cpap Fracture of fourth metatarsal bone of left foot Type 2 diabetes mellitus with diabetic polyneuropathy PVD (peripheral vascular disease) Fracture of fifth metatarsal bone of left foot Neuropathy Surgical History Status post below-knee amputation of left lower extremity History of left below knee amputation History of cataract surgery H/O wisdom tooth extraction Hx of lymph node excision H/O partial nephrectomy bilateral Family History Father , at age 65 Diabetes Cancer Metastatic prostate cancer to liver Mother , at age 72 Diabetes Grandfather Diabetes Cancer Other Anemia Hyperlipidemia Social History Smoking and tobacco/nicotine status: never used tobacco/nicotine Second hand smoke exposure: Yes Alcohol intake: current Alcohol intake frequency: holidays/special occasions only Substance/Drug Use: never Lives independently: Yes Household members: spouse Housing: House Marital status: service: No Current occupational status: retired Pets and animals: Yes Do you think of yourself as: Straight/Heterosexual Current gender identity: Male Physical Exam Const: COMMON NORMALS: patient oriented x3, no limitations and alert GENERAL APPEARANCE: cooperative, comfortable, ill appearing and appears older than stated age ORIENTATION/CONSCIOUSNESS: Yes awake HENMT: COMMON NORMALS: normocephalic, atraumatic, hearing grossly normal bilaterally, external ears normal, Normal external nose present, Normal nasal mucous membranes and turbinates present and moist oral mucous membranes HEAD & SCALP: normocephalic and atraumatic NOSE: Normal external nose present and Normal nasal mucous membranes and turbinates present EXTERNAL EAR: Yes external ears normal Eye: COMMON NORMALS: Equal, round and reactive pupils present, EOMs intact bilaterally, conjunctivae normal and normal visual ray by confrontation CONJUNCTIVA: Yes conjunctivae normal PUPIL: Yes Equal, round and reactive pupils present Neck/C-Spine: COMMON NORMALS: full ROM, supple, no meningeal signs and no JVD Resp: COMMON NORMALS: normal respiratory effort, No retractions, No use of accessory muscles and clear to auscultation bilaterally AUSCULTATION: clear to auscultation bilaterally, no crackles, no rales, no rhonchi and no wheezes Cardio: COMMON NORMALS: no JVD, regular rate, regular rhythm, S1 normal heart sound present, S2 normal heart sound present, No gallops present (Cardio), No clicks present (Cardio), No murmurs present (Cardio) and No rub (Cardio) RATE: regular rate RHYTHM: regular rhythm HEART SOUNDS: S1 normal heart sound present and S2 normal heart sound present GI: INSPECTION: Yes abdominal distension, Yes central obesity, Yes striae and Yes Fluid wave present AUSCULTATION: Yes normoactive bowel sounds PALPATION: Yes Tenderness to palpation present (GI) (Diffuse), No Guarding due to palpation present (GI), Yes Rigid due to palpation and Yes Hernia present umbilical PERCUSSION: Fluid wave present RECTAL EXAM: Yes deferred OTHER: Presence of port right lower abdomen : COMMON NORMALS: Yes no CVA tenderness BLADDER/KIDNEY EXAM: Yes no CVA tenderness Back/Pelvis: COMMON NORMALS: no CVA tenderness Extremity: NARRATIVE EXTREMITY EXAM: History of left BKA. Chronic venous stasis changes bilaterally Neuro: COMMON NORMALS: patient oriented x3 SENSORIUM/ORIENTATION: Yes alert MENINGEAL SIGNS: Yes no meningeal signs Psych: COMMON NORMALS: mental status grossly normal, cooperative and speech normal SPEECH: Yes normal speech Skin: COMMON NORMALS: no rashes or lesions noted GENERAL SKIN EXAM: no rashes or lesions noted Course Vital Signs: Vital signs: Vital Signs Temperature 97.9 F 12/18/23 16:59 Pulse Rate 79 12/19/23 08:00 Respiratory Rate 13 12/19/23 08:00 Blood Pressure 88/53 12/18/23 23:00 Pulse Oximetry 100 12/19/23 08:00 Oxygen Delivery Me thod Nasal Cannula 12/19/23 02:00 Oxygen Flow Rate 1 12/19/23 01:00 MDM - Abdominal Pain Medical Decision Making Patient has multiple ED visits and has a known significant past medical history and is high risk for readmission. He recently had peritoneal catheter placed to drain his ascites on a daily basis, states he was sent home and not shown how to use it. His complaint today was increasing abdominal pain and bloating. All of his lab work was within his baseline or showed improvement when compared to prior. CT again was baseline for him. Spoke with hospitalist, Dr. Kauffman, who agrees that patient needs outpatient draining of his peritoneal fluid and that due to his clinical improvement that there is nothing to admit to the hospital. Suspicion for spontaneous bacterial peritonitis is low at this juncture. I then spoke with patient's group home, and staff there reports that they also do not know how to drain it. Spoke to Dr. Otero, on-call surgeon, who states that this is a simple procedure with accessing Luer-Sylvia and draining the fluid manually. Subsequently, 2 L of fluid was drained off of the patient in the emergency room, and he will be discharged back to the group home. Nursing order was placed for the peritoneal draining to resume at the group home. Patient is also shown how to perform this by himself, though was informed that nursing staff will be able to assist with any difficulties. Patient agrees with plan. Lab Data 12/18/23 18:05 12/18/23 18:05 Labs/Radiology: Radiology Impressions Abdomen/Pelvis CT 12/18/23 17:32 IMPRESSION: 1. Hepatic cirrhosis and portal hypertension . Gguz-nq-yuijmamu splenomegaly. Pbia-in-tkacanhy moderate ascites is smaller in volume compared to 11/23/2023. 2. Increased diffuse body wall edema, small bilateral pleural effusions and central mesenteric congestion. Difficult to exclude spontaneous peritonitis in the setting. Clinical correlation and ascites fluid analysis as warranted. 3. Volume overload contributed to by reported end-stage renal disease. Bilaterally atrophic kidneys. Aodi-vj-uwjsilhp cardiomegaly. 4. Multiple bulky inguinal, iliac and retroperitoneal adenopathy further increased from the prior study. Differential diagnosis includes lymphoma versus inflammatory etiology. 5. Subacute bilateral rib fractures, new on the right side since 11/23/2023. Laboratory Results WBC 3.23 10^3/uL (3.29-11.43) L 12/18/23 18:05 RBC 2.79 10^6/uL (3.85-5.65) L 12/18/23 18:05 Hgb 8.40 g/dL (11.27-16.99) L 12/18/23 18:05 Hct 27.4 % (37-53) L 12/18/23 18:05 MCV 98.2 fl (82-101) 12/18/23 18:05 MCH 30.1 pg (27-33) 12/18/23 18:05 MCHC 30.7 g/dL (30-55) 12/18/23 18:05 RDW 19.2 % (12.1-15.1) H 12/18/23 18:05 Plt Count 138 10^3/cmm (157-399) L 12/18/23 18:05 MPV 10.6 fL (7.4-10.4) H 12/18/23 18:05 Neut % (Auto) 69.1 % 12/18/23 18:05 Lymph % (Auto) 12.1 % 12/18/23 18:05 [place] % (Auto) 6.8 % 12/18/23 18:05 Eos % (Auto) 10.8 % 12/18/23 18:05 Baso % (Auto) 0.6 % 12/18/23 18:05 Neut # (Auto) 2.23 10^3/uL (1.8-7.7) 12/18/23 18:05 Lymph # (Auto) 0.4 10^3/uL (0.8-4.8) L 12/18/23 18:05 [place] # (Auto) 0.2 10^3/uL (0.2-0.9) 12/18/23 18:05 Eos # (Auto) 0.4 10^3/uL (0.0-0.8) 12/18/23 18:05 Baso # (Auto) 0.0 10^3/uL (0.0-0.1) 12/18/23 18:05 Nucleated RBC % (auto) 0 % 12/18/23 18:05 Nucleated RBCs # 0.0 /100WBC 12/18/23 18:05 ESR 20 mm/hr (0-10) H 12/18/23 18:05 PT 18.30 SECONDS (12.1-14.9) H 12/18/23 18:05 INR 1.46 (0.8-1.2) H 12/18/23 18:05 APTT 34.6 SECONDS (23.9-36.7) 12/18/23 18:05 Sodium 141 mmol/L (136-145) 12/18/23 18:05 Potassium 3.5 mmol/L (3.5-5.1) 12/18/23 18:05 Chloride 94 mmol/L (98-107) L 12/18/23 18:05 Carbon Dioxide 35 mmol/L (22-29) H 12/18/23 18:05 Anion Gap 15.5 (5-19) 12/18/23 18:05 BUN 37 mg/dL (6-20) H 12/18/23 18:05 Creatinine 2.9 mg/dL (0.7-1.2) H 12/18/23 18:05 GFR Calculation 22.9 mL/min (90-130) L 12/18/23 18:05 Glucose 84 mg/dL (65-115) 12/18/23 18:05 Calculated Osmolality 300 mOsm/kg (285-295) H 12/18/23 18:05 Lactic Acid 1.2 mmol/L (0.5-2.2) 12/18/23 18:05 Calcium 7.5 mg/dL (8.5-10.5) L 12/18/23 18:05 Total Bilirubin 0.8 mg/dL (0.15-1.2) 12/18/23 18:05 AST 15 U/L (0-40) 12/18/23 18:05 ALT 6 U/L (0-41) 12/18/23 18:05 Alkaline Phosphatase 108 U/L (40-130) 12/18/23 18:05 C-Reactive Protein 60.5 mg/L (0.0-4.9) H 12/18/23 18:05 NT-Pro-B Natriuret Pep > 76949 pg/mL (0-125) H 12/18/23 18:05 Total Protein 7.9 g/dL (6.6-8.7) 12/18/23 18:05 Albumin 3.5 g/dL (3.5-5.2) 12/18/23 18:05 Globulin 4.4 g/dL (1.3-4.6) 12/18/23 18:05 Procalcitonin 0.93 ng/mL (0-0.5) H 12/18/23 18:05 All radiology interpretation(s) finalized by discharge Discharge Plan Discharge Patient Disposition: Home Clinical Impression: Abdominal ascites, End stage kidney disease, Congestive heart failure Condition: Stable Prescriptions: No Action (DME) Wheel Chair See Rx Instructions .Route .MEDSUPPLY Qty: 1 0RF Rx Instructions: As directed HOME (DME) Compression Stockings See Rx Instructions .Route .MEDSUPPLY Qty: 1 0RF Rx Instructions: As directed (DME) kaibab boot modification See Rx Instructions .Route .MEDSUPPLY Qty: 1 0RF Rx Instructions: Straps are failing (DME) diabetic shoes with 3 heat molded insoles See Rx Instructions .Route .MEDSUPPLY Qty: 1 0RF Rx Instructions: As directed to HOME (DME) Prevalon boot See Rx Instructions .Route .MEDSUPPLY Qty: 1 0RF Rx Instructions: As directed ropinirole 0.25 mg tablet 0.25 mg PO BEDTIME oxycodone 5 mg Tablet 5 mg PO Q4H PRN (Reason: Pain) clopidogrel 75 mg Tablet 75 mg PO DAILY RenaPlex-D 800 mcg-12.5 mg -2,000 unit tablet 1 tab PO DAILY nitroglycerin 0.4 mg tablet, sublingual 0.4 mg buccal DAILY PRN (Reason: Chest Pain) Rx Instructions: NOT TO EXCEED 3 TABLETS midodrine 5 mg tablet 10 mg PO TID fludrocortisone 0.1 mg Tablet 0.2 mg PO DAILY Qty: 60 0RF ondansetron HCl 4 mg tablet 4 mg PO Q4H PRN (Reason: Nausea) polyethylene glycol 3350 [Miralax] 17 gram/dose Powder 17 g PO BID PRN (Reason: Constipation) albuterol sulfate 90 mcg/actuation Hfa Aerosol Inhaler 2 puff INHALATION Q6H PRN (Reason: Shortness Of Breath) B-complex with vitamin C Capsule 1 cap PO DAILY diphenhydramine HCl [Benadryl Allergy] 25 mg tablet 25 mg PO DAILY PRN (Reason: itching) gabapentin 300 mg capsule 300 mg PO Q8H PRN (Reason: NERVE PAIN) trazodone 50 mg tablet 50 mg PO BEDTIME Mehdi (with collagen) 7-7-1.5 gram Powder In Packet 1 packet PO BID Rx Instructions: mix 1 packet with 8-10 oz liquid Lokelma 10 gram powder in packet See Rx Instructions .ROUTE .COMPLEX Rx Instructions: GIVE 1 PACKET IN LIQUID BY MOUTH DAILY ON SUNDAY, SUNDAY, SUNDAY, AND SUNDAY. amiodarone [Pacerone] 200 mg Tablet 200 mg PO DAILY nitroglycerin 0.1 mg/hr Patch 24 Hour 1 patch TRANSDERMAL DAILY Rx Instructions: allow nitrate-free interval of approx. 10-12 hrs per 24-hour period miconazole nitrate 2 % Cream 1 applic TOPICAL BID levothyroxine 25 mcg Tablet 25 mcg PO DAILY pantoprazole 40 mg tablet,delayed release (DR/EC) 40 mg PO DAILY lorazepam 2 mg/mL Concentrate 0.25 - 0.5 mg PO Q6H PRN (Reason: COMFORT CARES) Eliquis 5 mg Tablet 5 mg PO BID [id number] 0.5-1-0.5 % Dropperette 1 drp OPHTHALMIC (EYE) Q4H PRN (Reason: Dry Eyes) morphine concentrate 100 mg/5 mL (20 mg/mL) Solution 10 mg PO Q2H PRN (Reason: COMFORT CARE) Rx Instructions: PRN ORDER morphine concentrate 100 mg/5 mL (20 mg/mL) Solution 5 mg PO Q2H PRN (Reason: SHORTNESS OF BREATH OR PAIN) Discharge Orders: Discharge ED (Routine); Ordered 12/18/23 Ordered By: Brady Venegas Referrals: Sulma Wetzel MD [Primary Care Provider] - Discharge Diet: Usual diet Discharge Activity: Resume usual activity Patient Instructions: Ascites (ED), How to Care for Your Chest or Abdominal Catheter (ED) Activity Restrictions/Additional Instructions: Continue to drain up to 2 L of abdominal fluid per day at your group home facility. Ask nursing staff for any assistance. Follow-up with your primary care provider. Continue your medications. Return with any new or worsening. See nursing order for additional details. Coding Level of Care Code ED Hematology Oncology Consultant for Chg Fwd Documented by User: Jerry Bradford DO 12/30/23 15:39 HPI - Abdominal Pain General: Chief Complaint: Abdominal Pain Stated Complaint: ABD PAIN Time Seen by Provider: 12/18/23 17:14 [facility] ED PFSH: Medical History End stage renal disease on dialysis Atrial fibrillation Type 2 diabetes mellitus CHF (congestive heart failure), NYHA class III Poor prognosis Hepatorenal syndrome Sarcopenia Cirrhosis singletary Hypotension, chronic Anemia Acute hypoxic respiratory failure Anemia requiring transfusions Aortic stenosis Noncompliance End-stage renal disease on hemodialysis Anasarca Uremia Chronic osteomyelitis 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, limited to breakdown of skin Chronic osteomyelitis of right foot Foot osteomyelitis, right Osteomyelitis Cellulitis Necrosis of surgical wound Foot osteomyelitis, left Hypovolemic shock Anemia of chronic disease Ulcer of sacral region, stage 1 Gas gangrene Acquired equinovarus deformity of left foot Pre-ulcerative calluses Xerosis of skin 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 Cellulitis Diabetes BMI 50.0-59.9, adult Diabetic foot ulcers Fracture, thoracic vertebra T7-T8 Osteomyelitis Non-pressure chronic ulcer of other part of right foot with necrosis of muscle Chronic venous insufficiency Chronic dysfunction of both eustachian tubes Lung nodule Hypoglycemia unawareness associated with type 2 diabetes mellitus Chronic ulcer of left foot with fat layer exposed Non-healing ulcer of right foot with fat layer exposed Vitamin D deficiency First degree heart block COPD (chronic obstructive pulmonary disease) Hypertension Urinary retention History of renal cell carcinoma Morbid obesity with BMI of 40.0-44.9, adult Cardiac arrest Anemia Pneumonia due to 2019-nCoV (~07/2020) Renal cell carcinoma History bilateral renal cell carcinoma 2007 then recurrence on the contralateral side 2011. No recurrence for long-term follow-up with some suspicion on CT scan April 2020. Chronic respiratory failure with hypoxia and hypercapnia Obesity hypoventilation syndrome Metabolic alkalosis Accelerated hypertension Restrictive lung disease Obstructive sleep apnea non compliant with home bipap/cpap Fracture of fourth metatarsal bone of left foot Type 2 diabetes mellitus with diabetic polyneuropathy PVD (peripheral vascular disease) Fracture of fifth metatarsal bone of left foot Neuropathy Surgical History Status post below-knee amputation of left lower extremity History of left below knee amputation History of cataract surgery H/O wisdom tooth extraction Hx of lymph node excision H/O partial nephrectomy bilateral Family History Father , at age 65 Diabetes Cancer Metastatic prostate cancer to liver Mother , at age 72 Diabetes Grandfather Diabetes Cancer Other Anemia Hyperlipidemia Social History Smoking and tobacco/nicotine status: never used tobacco/nicotine Second hand smoke exposure: Yes Alcohol intake: current Alcohol intake frequency: holidays/special occasions only Substance/Drug Use: never Lives independently: Yes Household members: spouse Housing: House Marital status: service: No Current occupational status: retired Pets and animals: Yes Do you think of yourself as: Straight/Heterosexual Current gender identity: Male Course Vital Signs: Vital signs: Vital Signs Temperature 97.9 F 12/18/23 16:59 Pulse Rate 79 12/19/23 08:00 Respiratory Rate 13 12/19/23 08:00 Blood Pressure 88/53 05/21/24 23:00 Pulse Oximetry 100 12/19/23 08:00 Oxygen Delivery Me thod Nasal Cannula 12/19/23 02:00 Oxygen Flow Rate 1 12/19/23 01:00 MDM - Abdominal Pain Medical Decision Making Patient has multiple ED visits and has a known significant past medical history and is high risk for readmission. He recently had peritoneal catheter placed to drain his ascites on a daily basis, states he was sent home and not shown how to use it. His complaint today was increasing abdominal pain and bloating. All of his lab work was within his baseline or showed improvement when compared to prior. CT again was baseline for him. Spoke with hospitalist, Dr. Kauffman, who agrees that patient needs outpatient draining of his peritoneal fluid and that due to his clinical improvement that there is nothing to admit to the hospital. Suspicion for spontaneous bacterial peritonitis is low at this juncture. I then spoke with patient's group home, and staff there reports that they also do not know how to drain it. Spoke to Dr. Otero, on-call surgeon, who states that this is a simple procedure with accessing Luer-Sylvia and draining the fluid manually. Subsequently, 2 L of fluid was drained off of the patient in the emergency room, and he will be discharged back to the group home. Nursing order was placed for the peritoneal draining to resume at the group home. Patient is also shown how to perform this by himself, though was informed that nursing staff will be able to assist with any difficulties. Patient agrees with plan. Chart reviewed Lab Data 12/18/23 18:05 12/18/23 18:05 Labs/Radiology: Radiology Impressions Abdomen/Pelvis CT 12/18/23 17:32 IMPRESSION: 1. Hepatic cirrhosis and portal hypertension . Jsay-jj-vvkdemdg splenomegaly. Yqlp-nk-nnvikqdb moderate ascites is smaller in volume compared to 11/23/2023. 2. Increased diffuse body wall edema, small bilateral pleural effusions and central mesenteric congestion. Difficult to exclude spontaneous peritonitis in the setting. Clinical correlation and ascites fluid analysis as warranted. 3. Volume overload contributed to by reported end-stage renal disease. Bilaterally atrophic kidneys. Vkfh-qs-zdzhnawt cardiomegaly. 4. Multiple bulky inguinal, iliac and retroperitoneal adenopathy further increased from the prior study. Differential diagnosis includes lymphoma versus inflammatory etiology. 5. Subacute bilateral rib fractures, new on the right side since 11/23/2023. Laboratory Results WBC 3.23 10^3/uL (3.29-11.43) L 12/18/23 18:05 RBC 2.79 10^6/uL (3.85-5.65) L 12/18/23 18:05 Hgb 8.40 g/dL (11.27-16.99) L 12/18/23 18:05 Hct 27.4 % (37-53) L 12/18/23 18:05 MCV 98.2 fl (82-101) 12/18/23 18:05 MCH 30.1 pg (27-33) 12/18/23 18:05 MCHC 30.7 g/dL (30-55) 12/18/23 18:05 RDW 19.2 % (12.1-15.1) H 12/18/23 18:05 Plt Count 138 10^3/cmm (157-399) L 12/18/23 18:05 MPV 10.6 fL (7.4-10.4) H 12/18/23 18:05 Neut % (Auto) 69.1 % 12/18/23 18:05 Lymph % (Auto) 12.1 % 12/18/23 18:05 [place] % (Auto) 6.8 % 12/18/23 18:05 Eos % (Auto) 10.8 % 12/18/23 18:05 Baso % (Auto) 0.6 % 12/18/23 18:05 Neut # (Auto) 2.23 10^3/uL (1.8-7.7) 12/18/23 18:05 Lymph # (Auto) 0.4 10^3/uL (0.8-4.8) L 12/18/23 18:05 [place] # (Auto) 0.2 10^3/uL (0.2-0.9) 12/18/23 18:05 Eos # (Auto) 0.4 10^3/uL (0.0-0.8) 12/18/23 18:05 Baso # (Auto) 0.0 10^3/uL (0.0-0.1) 12/18/23 18:05 Nucleated RBC % (auto) 0 % 12/18/23 18:05 Nucleated RBCs # 0.0 /100WBC 12/18/23 18:05 ESR 20 mm/hr (0-10) H 12/18/23 18:05 PT 18.30 SECONDS (12.1-14.9) H 12/18/23 18:05 INR 1.46 (0.8-1.2) H 12/18/23 18:05 APTT 34.6 SECONDS (23.9-36.7) 12/18/23 18:05 Sodium 141 mmol/L (136-145) 12/18/23 18:05 Potassium 3.5 mmol/L (3.5-5.1) 12/18/23 18:05 Chloride 94 mmol/L (98-107) L 12/18/23 18:05 Carbon Dioxide 35 mmol/L (22-29) H 12/18/23 18:05 Anion Gap 15.5 (5-19) 12/18/23 18:05 BUN 37 mg/dL (6-20) H 12/18/23 18:05 Creatinine 2.9 mg/dL (0.7-1.2) H 12/18/23 18:05 GFR Calculation 22.9 mL/min (90-130) L 12/18/23 18:05 Glucose 84 mg/dL (65-115) 12/18/23 18:05 Calculated Osmolality 300 mOsm/kg (285-295) H 12/18/23 18:05 Lactic Acid 1.2 mmol/L (0.5-2.2) 12/18/23 18:05 Calcium 7.5 mg/dL (8.5-10.5) L 12/18/23 18:05 Total Bilirubin 0.8 mg/dL (0.15-1.2) 12/18/23 18:05 AST 15 U/L (0-40) 12/18/23 18:05 ALT 6 U/L (0-41) 12/18/23 18:05 Alkaline Phosphatase 108 U/L (40-130) 12/18/23 18:05 C-Reactive Protein 60.5 mg/L (0.0-4.9) H 12/18/23 18:05 NT-Pro-B Natriuret Pep > 46509 pg/mL (0-125) H 12/18/23 18:05 Total Protein 7.9 g/dL (6.6-8.7) 12/18/23 18:05 Albumin 3.5 g/dL (3.5-5.2) 12/18/23 18:05 Globulin 4.4 g/dL (1.3-4.6) 12/18/23 18:05 Procalcitonin 0.93 ng/mL (0-0.5) H 12/18/23 18:05 Discharge Plan Discharge Patient Disposition: Home Clinical Impression: Abdominal ascites, End stage kidney disease, Congestive heart failure Condition: Stable Prescriptions: No Action (DME) Wheel Chair See Rx Instructions .Route .MEDSUPPLY Qty: 1 0RF Rx Instructions: As directed HOME (DME) Compression Stockings See Rx Instructions .Route .MEDSUPPLY Qty: 1 0RF Rx Instructions: As directed (DME) kaibab boot modification See Rx Instructions .Route .MEDSUPPLY Qty: 1 0RF Rx Instructions: Straps are failing (DME) diabetic shoes with 3 heat molded insoles See Rx Instructions .Route .MEDSUPPLY Qty: 1 0RF Rx Instructions: As directed to HOME (DME) Prevalon boot See Rx Instructions .Route .MEDSUPPLY Qty: 1 0RF Rx Instructions: As directed ropinirole 0.25 mg tablet 0.25 mg PO BEDTIME oxycodone 5 mg Tablet 5 mg PO Q4H PRN (Reason: Pain) clopidogrel 75 mg Tablet 75 mg PO DAILY RenaPlex-D 800 mcg-12.5 mg -2,000 unit tablet 1 tab PO DAILY nitroglycerin 0.4 mg tablet, sublingual 0.4 mg buccal DAILY PRN (Reason: Chest Pain) Rx Instructions: NOT TO EXCEED 3 TABLETS midodrine 5 mg tablet 10 mg PO TID fludrocortisone 0.1 mg Tablet 0.2 mg PO DAILY Qty: 60 0RF ondansetron HCl 4 mg tablet 4 mg PO Q4H PRN (Reason: Nausea) polyethylene glycol 3350 [Miralax] 17 gram/dose Powder 17 g PO BID PRN (Reason: Constipation) albuterol sulfate 90 mcg/actuation Hfa Aerosol Inhaler 2 puff INHALATION Q6H PRN (Reason: Shortness Of Breath) B-complex with vitamin C Capsule 1 cap PO DAILY diphenhydramine HCl [Benadryl Allergy] 25 mg tablet 25 mg PO DAILY PRN (Reason: itching) gabapentin 300 mg capsule 300 mg PO Q8H PRN (Reason: NERVE PAIN) trazodone 50 mg tablet 50 mg PO BEDTIME Mehdi (with collagen) 7-7-1.5 gram Powder In Packet 1 packet PO BID Rx Instructions: mix 1 packet with 8-10 oz liquid Lokelma 10 gram powder in packet See Rx Instructions .ROUTE .COMPLEX Rx Instructions: GIVE 1 PACKET IN LIQUID BY MOUTH DAILY ON SUNDAY, SUNDAY, SUNDAY, AND SUNDAY. amiodarone [Pacerone] 200 mg Tablet 200 mg PO DAILY nitroglycerin 0.1 mg/hr Patch 24 Hour 1 patch TRANSDERMAL DAILY Rx Instructions: allow nitrate-free interval of approx. 10-12 hrs per 24-hour period miconazole nitrate 2 % Cream 1 applic TOPICAL BID levothyroxine 25 mcg Tablet 25 mcg PO DAILY pantoprazole 40 mg tablet,delayed release (DR/EC) 40 mg PO DAILY lorazepam 2 mg/mL Concentrate 0.25 - 0.5 mg PO Q6H PRN (Reason: COMFORT CARES) Eliquis 5 mg Tablet 5 mg PO BID [id number] 0.5-1-0.5 % Dropperette 1 drp OPHTHALMIC (EYE) Q4H PRN (Reason: Dry Eyes) morphine concentrate 100 mg/5 mL (20 mg/mL) Solution 10 mg PO Q2H PRN (Reason: COMFORT CARE) Rx Instructions: PRN ORDER morphine concentrate 100 mg/5 mL (20 mg/mL) Solution 5 mg PO Q2H PRN (Reason: SHORTNESS OF BREATH OR PAIN) Discharge Orders: Discharge ED (Routine); Ordered 12/18/23 Ordered By: Brady Venegas Referrals: Sulma Wetzel MD [Primary Care Provider] - Discharge Diet: Usual diet Discharge Activity: Resume usual activity Patient Instructions: Ascites (ED), How to Care for Your Chest or Abdominal Catheter (ED) Activity Restrictions/Additional Instructions: Continue to drain up to 2 L of abdominal fluid per day at your group home facility. Ask nursing staff for any assistance. Follow-up with your primary care provider. Continue your medications. Return with any new or worsening. See nursing order for additional details. Coding Level of Care Code ED Hematology Oncology Consultant for Patricia Reid
[2023-12-18 18:48] LABS: INR 1.46 (0.8-1.2)
[2023-12-18 18:49] LABS: Partial Thromboplastin Time 34.6 SECONDS (23.9-36.7)
[2023-12-18 18:54] LABS: Procalcitonin 0.93 ng/mL (0-0.5)
[2023-12-18 19:08] LABS: Alanine Aminotransferase 6 U/L (0-41); Albumin Level 3.5 g/dL (3.5-5.2); Alkaline Phosphatase 108 U/L (40-130); Anion Gap 15.5 (5-19); Aspartate Amino Transferase 15 U/L (0-40); Blood Urea Nitrogen 37 mg/dL (6-20); C Reactive Protein 60.5 mg/L (0.0-4.9); Calcium 7.5 mg/dL (8.5-10.5); Carbon Dioxide 35 mmol/L (22-29); Chloride 94 mmol/L (98-107); Creatinine Clr Calc Pharmacy 48.3083; Globulin 4.4 g/dL (1.3-4.6); Glomerular Filtration Rate 22.9 mL/min (90-130); Glucose 84 mg/dL (65-115); Osmolality Calculated 300 mOsm/kg (285-295); Potassium 3.5 mmol/L (3.5-5.1); Sodium 141 mmol/L (136-145); Total Bilirubin 0.8 mg/dL (0.15-1.2); Total Protein 7.9 g/dL (6.6-8.7)
[2023-12-18 19:27] LABS: NT Pro B Type Natriuretic Pept > 70000 pg/mL (0-125)
--- NOTE | 2023-12-18 23:04 | PC.NURSE ---
Peritoneal drain accessed with sterile luer lock 50cc syringe per Maxi PHAM, also at bedside. Removed a total of 1700mls while monitoring patients vehicle monitor technician/ vitals. Pt tolerated well.
[2023-12-19] VITALS (7 sets, daily range): PULSE 79–95; RESP 13–20; O2SAT 88–100
[2023-12-19] MEDS: ondansetron 2 mg/ML SDV 2 mL 4 MG IVP (01:06)
--- NOTE | 2023-12-19 02:27 | PC.NURSE ---
Call to [facility] Spoke with Emiliana @ [facility] re: pt d/c instructions. INformed her that provider has placed orders for nurse at the [facility] to assist with peritoneal catheter drainage daily. Informed her that provider has written out [id number] directions for drainage that I will send with patients d/c pk. Emiliana is aware that [facility] ambulance has refused to transport back to the [facility]. Emiliana Michel [facility] called back after I requested the [employer] phone number, which she refused to provide. Pt will be picked up by their transport between [phone]. Pt notified that it will be after 0700.
[2023-12-19] MEDS: ondansetron 4 MG Tablet PO (04:45)
== END 2023-12-19 08:34 | disposition home or self-care (01) ==
PROVIDERS: Emergency Provider Physician Assistant; PCP Internal Medicine
DX: R18.8 Other ascites (principal); I13.2 Hypertensive heart and chronic kidney disease with heart failure and with stage 5 chronic kidney disease, or end stage renal disease; E11.22 Type 2 diabetes mellitus with diabetic chronic kidney disease; N18.6 End stage renal disease; I50.9 Heart failure, unspecified; Z99.2 Dependence on renal dialysis; J44.9 Chronic obstructive pulmonary disease, unspecified; Z85.528 Personal history of other malignant neoplasm of kidney; Z89.512 Acquired absence of left leg below knee; Z77.22 Contact with and (suspected) exposure to environmental tobacco smoke (acute) (chronic); Z79.02 Long term (current) use of antithrombotics/antiplatelets
CPT/HCPCS: 36415; 74176; 80053; 83605; 83880; 84145; 85025; 85610; 85651; 85730; 86140; 93005; 96374; 96375; 96376; 99285; J2270; J2405; Q0162

== ENCOUNTER 2023-12-26 12:59 | Inpatient (IN) | payer MEDICARE, MEDICAID, SELFPAY ==
[2023-12-26] VITALS (37 sets, daily range): BP systolic 65–183; BP diastolic 42–137; PULSE 11–94; RESP 7–22; TEMP 36.5–36.9; O2SAT 83–100
--- NOTE | 2023-12-26 13:10 | XR_ITS ---
WS: [id number] Exam: XR chest 1V portable [id number] Date/Time of Exam: 12/26/2023 1:21 PM Reason For Exam: ams Comparison 11/23/2023. Limited inspiration noted. Mild cardiac enlargement unchanged. No consolidating infiltrates or pneumo thorax. No pleural effusions. Regional bony elements appear normal. There appears to be some rightwar d deviation of the trachea. XR/XR chest 1V portable [id number] IMPRESSION: 1. Decreased lung volumes secondary to limited inspiration. Mild cardiac enlarg ement unchanged. 2. Rightward tracheal deviation which appears chronic. Etiology is unclear.
--- NOTE | 2023-12-26 13:13 | ECG_ITS ---
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 Measurements Intervals [place] Rate: 72 P: 62 [place]: 236 QRS: 145 QRSD: 130 T: 37 QT: 442 QTc: 484 Interpretive Statements SINUS RHYTHM WITH FIRST DEGREE AV BLOCK WITH OCCASIONAL VENTRICULAR PREMATURE COMPLEXES RIGHT BUNDLE BRANCH BLOCK [120+ ms QRS DURATION, UPRIGHT V1, 40+ ms S IN I/aVL/V4/V5/V6] LEFT POSTERIOR FASCICULAR BLOCK [QRS AXIS > 109, INFERIOR Q] POSSIBLE ANTERIOR MYOCARDIAL INFARCTION , PROBABLY OLD [30 ms Q WAVE IN V3/V4, OR R < 0.2 mV IN V4] Compared to ECG 12/18/2023 17:57:35 Indeterminate axis no longer present Myocardial infarct finding still present Electronically Signed On 12-26-2023 13:54:33 CDT by Erik Arguelles M.D. [id number] morales
[2023-12-26] MEDS: sodium chloride 0.9% 1,000 ML 999 ML IV (13:26)
--- NOTE | 2023-12-26 13:38 | ECG_ITS ---
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 Measurements Intervals [place] Rate: 83 P: 64 MA: 188 QRS: 165 QRSD: 131 T: 68 QT: 427 QTc: 502 Interpretive Statements SINUS RHYTHM RIGHT BUNDLE BRANCH BLOCK [120+ ms QRS DURATION, UPRIGHT V1, 40+ ms S IN I/aVL/V4/V5/V6] LEFT POSTERIOR FASCICULAR BLOCK [QRS AXIS > 109, INFERIOR Q] Compared to ECG 12/26/2023 15:49:13 No significant changes Electronically Signed On 12-26-2023 17:29:24 CDT by Erik Arguelles M.D. [id number]
[2023-12-26] MEDS: dextrose 10% 125 ML 750 ML IV (13:49)
--- NOTE | 2023-12-26 13:52 | ED_ITS ---
HPI - Altered Mental Status 2 General: Chief Complaint: Altered Mental Status Stated Complaint: hypoglycemia/ unresponsive Time Seen by Provider: 12/26/23 13:04 Source: EMS Mode of arrival: EMS Limitations: altered mental status History of Present Illness: 53-year-old male has multiple medical is sues he is very well-known to the ER patient was found to be unresponsive at the snf checked his blood sugar was in the 30s patient's blood sugar is improving here he is a little more awake but he still not answering many questions appropriately he is hypoxic here and hypotensive no known recent illness. Review of Systems 2 General: Reports: ROS unobtainable due to mental status PFSH ED 2 PFSH: Medical History Poor prognosis Hepatorenal syndrome Sarcopenia Cirrhosis singletary Hypotension, chronic Anemia Acute hypoxic respiratory failure End stage renal disease on dialysis Anemia requiring transfusions Aortic stenosis Atrial fibrillation Noncompliance End-stage renal disease on hemodialysis Anasarca Uremia Chronic osteomyelitis Type 2 diabetes mellitus 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, limited to breakdown of skin Chronic osteomyelitis of right foot Foot osteomyelitis, right Osteomyelitis Cellulitis Necrosis of surgical wound Foot osteomyelitis, left Hypovolemic shock Anemia of chronic disease Ulcer of sacral region, stage 1 Gas gangrene Acquired equinovarus deformity of left foot Pre-ulcerative calluses Xerosis of skin 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 Cellulitis Diabetes BMI 50.0-59.9, adult Diabetic foot ulcers Fracture, thoracic vertebra T7-T8 Osteomyelitis Non-pressure chronic ulcer of other part of right foot with necrosis of muscle Chronic venous insufficiency Chronic dysfunction of both eustachian tubes Lung nodule Hypoglycemia unawareness associated with type 2 diabetes mellitus Chronic ulcer of left foot with fat layer exposed Non-healing ulcer of right foot with fat layer exposed Vitamin D deficiency First degree heart block COPD (chronic obstructive pulmonary disease) Hypertension Urinary retention History of renal cell carcinoma Morbid obesity with BMI of 40.0-44.9, adult Cardiac arrest Anemia Pneumonia due to 2019-nCoV (~07/2020) Renal cell carcinoma History bilateral renal cell carcinoma 2007 then recurrence on the contralateral side 2011. No recurrence for long-term follow-up with some suspicion on CT scan April 2020. CHF (congestive heart failure), NYHA class III Chronic respiratory failure with hypoxia and hypercapnia Obesity hypoventilation syndrome Metabolic alkalosis Accelerated hypertension Restrictive lung disease Obstructive sleep apnea non compliant with home bipap/cpap Fracture of fourth metatarsal bone of left foot Type 2 diabetes mellitus with diabetic polyneuropathy PVD (peripheral vascular disease) Fracture of fifth metatarsal bone of left foot Neuropathy Surgical History Status post below-knee amputation of left lower extremity History of left below knee amputation History of cataract surgery H/O wisdom tooth extraction Hx of lymph node excision H/O partial nephrectomy bilateral Family History Father , at age 65 Diabetes Cancer Metastatic prostate cancer to liver Mother , at age 72 Diabetes Grandfather Diabetes Cancer Other Anemia Hyperlipidemia Social History Smoking and tobacco/nicotine status: never used tobacco/nicotine Second hand smoke exposure: Yes Alcohol intake: current Alcohol intake frequency: holidays/special occasions only Substance/Drug Use: never Lives independently: Yes Household members: spouse Housing: House Marital status: service: No Current occupational status: retired Pets and animals: Yes Do you think of yourself as: Straight/Heterosexual Current gender identity: Male Physical Exam 2 Const: COMMON NORMALS: negative for patient oriented x3 GENERAL APPEARANCE: ill appearing HENMT: COMMON NORMALS: normocephalic and atraumatic HEAD & SCALP: n ormocephalic and atraumatic Neck/C-Spine: COMMON NORMALS: full ROM and supple Chest: COMMONS NORMALS: normal inspection of the chest Resp: EFFORT & INSPECTION: Yes respiratory distress AUSCULTATION: rales Cardio: COMMON NORMALS: regular rate, regular rhythm and No murmurs present (Cardio) RATE: regular rate RHYTHM: regular rhythm GI: COMMON NORMALS: Normal to inspection, nondistended, normoactive bowel sounds present, Soft to palpation, non-tender and no masses PALPATION: Yes Soft to palpation Extremity: COMMON NORMALS: normal to inspection and full ROM Neuro: COMMON NORMALS: moves all extremities and no focal motor deficits; negative for patient oriented x3 Psych: COMMON NORMALS: mental status grossly normal, Normal thought process present and cooperative THOUGHT PROCESS: Normal thought process present Skin: COMMON NORMALS: no rashes or lesions noted and no wounds GENERAL SKIN EXAM: no rashes or lesions noted Course 2 Vital Signs: Vital signs: Vital Signs Temperature 98.4 F 12/26/23 14:10 Pulse Rate 84 12/26/23 15:41 Respiratory Rate 20 H 12/26/23 13:17 Blood Pressure 74/48 12/26/23 13:17 Pulse Oximetry 97 12/26/23 15:41 Fraction of Inspir ed Oxygen 50 12/26/23 15:41 MDM - Altered Mental Status Medical Decision Making Patient presents here with hypotension and he is also hypoxemic had ultimately status likely from hypoglycemia spoke to family at length at this point they want him to be a DNR I do want to receive further treatment that was negative speak to family further. Did start him on Levophed here his blood pressure is improved he is on BiPAP his respirations are improved on the BiPAP no sign of any infection at this time he is afebrile. I spoke to hospitalist will admit to ICU Medical Records I reviewed the patient's medical records. Lab Data I reviewed the patient's lab results. 12/26/23 14:33 12/26/23 14:33 Radiology Impressions Chest X-Ray 12/26/23 14:47 IMPRESSION: 1. Right-sided PICC line appearing to end in the region of the cavoatrial junction. 2. Cardiac enlargement with increased pulmonary vascularity. Laboratory Results WBC 6.85 10^3/uL (3.29-11.43) 12/26/23 14:33 RBC 2.66 10^6/uL (3.85-5.65) L 12/26/23 14:33 Hgb 8.20 g/dL (11.27-16.99) L 12/26/23 14:33 Hct 29.7 % (37-53) L 12/26/23 14:33 MCV 111.7 fl (82-101) H 12/26/23 14:33 MCH 30.8 pg (27-33) 12/26/23 14:33 MCHC 27.6 g/dL (30-55) L 12/26/23 14:33 RDW 22.3 % (12.1-15.1) H 12/26/23 14:33 Plt Count 131 10^3/cmm (157-399) L 12/26/23 14:33 MPV 11.1 fL (7.4-10.4) H 12/26/23 14:33 Neut % (Auto) 84.7 % 12/26/23 14:33 Lymph % (Auto) 8.2 % 12/26/23 14:33 Ponce % (Auto) 5.5 % 12/26/23 14:33 Eos % (Auto) 0.3 % 12/26/23 14:33 Baso % (Auto) 0.4 % 12/26/23 14:33 Neut # (Auto) 5.80 10^3/uL (1.8-7.7) 12/26/23 14:33 Lymph # (Auto) 0.6 10^3/uL (0.8-4.8) L 12/26/23 14:33 Ponce # (Auto) 0.4 10^3/uL (0.2-0.9) 12/26/23 14:33 Eos # (Auto) 0.0 10^3/uL (0.0-0.8) 12/26/23 14:33 Baso # (Auto) 0.0 10^3/uL (0.0-0.1) 12/26/23 14:33 Nucleated RBC % (auto) 0.6 % 12/26/23 14: Nucleated RBCs # 0.0 /100WBC 12/26/23 14:33 Specimen Type Arterial 12/26/23 14:09 Sample Site Radial, right 12/26/23 14:09 ABG pH 7.30 (7.35-7.45) L 12/26/23 14:09 ABG pCO2 56.8 mmHg (35-45) H 12/26/23 14:09 ABG pO2 134.0 mmHg (80.0-100.0) H 12/26/23 14:09 ABG PO2/FiO2 Ratio 0 12/26/23 14:09 ABG HCO3 27.8 mmol/L (22-26) H 12/26/23 14:09 ABG O2 Saturation 99.6 12/26/23 14:09 ABG Base Excess 0.8 mmol/L (-2.0-2.0) 12/26/23 14:09 Jesus Test Pos 12/26/23 14:09 A-a O2 Gradient 29.4 mmHg (5-10) H 12/26/23 14:09 Hematocrit 26.2 % (42-52) L 12/26/23 14:09 Hgb O2 Saturation 96.6 % (95-100) 12/26/23 14:09 Carboxyhemoglobin 2.6 %THgb (0.4-20.1) 12/26/23 14:09 Methemoglobin 0.4 % (0.4-1.5) 12/26/23 14:09 Total Hemoglobin 8.6 g/dL (14-18) L 12/26/23 14:09 Sodium 137.0 mmol/L (131-143) 12/26/23 14:09 Potassium 3.4 mmol/L (3.5-5.0) L 12/26/23 14:09 Glucose 173.0 mg/dL (70-115) H 12/26/23 14:09 Ionized Calcium 0.9 mmol/L (1.1-1.4) L 12/26/23 14:09 O2 Delivery Device Bipap 12/26/23 14:09 FiO2 60.0 % 12/26/23 14:09 Whiteprinting Machine Operator ID Cak 12/26/23 14:09 Sodium 138 mmol/L (136-145) 12/26/23 14:33 Potassium 3.8 mmol/L (3.5-5.1) 12/26/23 14:33 Chloride 93 mmol/L (98-107) L 12/26/23 14:33 Carbon Dioxide 21 mmol/L (22-29) L 12/26/23 14:33 Anion Gap 27.8 (5-19) H 12/26/23 14:33 BUN 41 mg/dL (6-20) H 12/26/23 14:33 Creatinine 4.1 mg/dL (0.7-1.2) H 12/26/23 14:33 GFR Calculation 15.3 mL/min (90-130) L 12/26/23 14:33 Glucose 108 mg/dL (65-115) 12/26/23 14:33 POC Glucose 104 mg/dL (70-110) 12/26/23 15:48 Calculated Osmolality 297 mOsm/kg (285-295) H 12/26/23 14:33 Calcium 6.5 mg/dL (8.5-10.5) L 12/26/23 14:33 Magnesium 1.8 mg/dL (1.7-2.3) 12/26/23 14:33 Total Bilirubin 0.7 mg/dL (0.15-1.2) 12/26/23 14:33 AST 67 U/L (0-40) H 12/26/23 14:33 ALT 10 U/L (0-41) 12/26/23 14:33 Alkaline Phosphatase 90 U/L (40-130) 12/26/23 14:33 Troponin T Baseline 698 ng/L (0-15) H* 12/26/23 14:33 Total Protein 7.2 g/dL (6.6-8.7) 12/26/23 14:33 Albumin 3.3 g/dL (3.5-5.2) L 12/26/23 14:33 Globulin 3.9 g/dL (1.3-4.6) 12/26/23 14:33 Lipase 12 U/L (13-60) L 12/26/23 14:33 All radiology interpretation(s) finalized by discharge EKG Data EKG 1: I personally reviewed and interpreted this EKG as follows: EKG interpretation date: 12/26/23 EKG interpretation time: 15:49 Interpretation: nsr hr [address] elevation qrs 132 qtc 482 Discharge Plan Discharge Patient Disposition: Admitted As Inpatient Admit Provider: Edil Bonner Clinical Impression: Hypotension, Altered mental status, Hypoglycemia Condition: Stable Coding Level of Care Code ED Training And Development Coordinator for Chg Franklin
[2023-12-26] MEDS: norepinephrine 4 MG/250 ML BAG 30 MG IV (13:54)
[2023-12-26 14:20] LABS: ABG PCO2 56.8 mmHg (35-45); Alveolar-Arterial Oxygen Gradi 29.4 mmHg (5-10); Arterial Blood Gas Hematocrit 26.2 % (42-52); Base Excess ABG 0.8 mmol/L (-2.0-2.0); Blood Gas Allen Test Pos; Blood Gas Operator Identificat CAK; Blood Gas Sample Site Radial, right; Blood Gas Sample Type Arterial; Carboxyhemoglobin 2.6 %THgb (0.4-20.1); HCO3 ABG 27.8 mmol/L (22-26); HGB O2 Sat 96.6 % (95-100); Ionized Calcium Level - ABG 0.9 mmol/L (1.1-1.4); Methemoglobin 0.4 % (0.4-1.5); Oxygen Device BIPAP; Oxygen Saturation ABG 99.6; PO2 FiO2 Ratio Arterial Blood 0; Potassium Level - ABG 3.4 mmol/L (3.5-5.0); Total Hemoglobin 8.6 g/dL (14-18)
[2023-12-26 14:29] LABS: Glucose Point of Care 88 mg/dL (70-110)
[2023-12-26 14:39] LABS: Basophils % 0.4 %; Eosinophils % 0.3 %; Hematocrit 29.7 % (37-53); Lymphocytes # 0.6 10^3/uL (0.8-4.8); Lymphocytes % 8.2 %; Mean Corpuscular HGB Conc 27.6 g/dL (30-55); Mean Corpuscular Hemoglobin 30.8 pg (27-33); Mean Corpuscular Volume 111.7 fl (82-101); Mean Platelet Volume 11.1 fL (7.4-10.4); Monocytes # 0.4 10^3/uL (0.2-0.9); Monocytes % 5.5 %; Neutrophils % 84.7 %; Nucleated Red Blood Cells % 0.6 %; Platelet Count 131 10^3/cmm (157-399); Red Blood Count 2.66 10^6/uL (3.85-5.65); Red Cell Distribution Width 22.3 % (12.1-15.1); White Blood Count 6.85 10^3/uL (3.29-11.43)
--- NOTE | 2023-12-26 14:47 | XR_ITS ---
WS: [id number] Exam: XR chest 1V portable [id number] Date/Time of Exam: 12/26/2023 3:19 PM Reason For Exam: Post PICC insertion Compared with the most recent exam on the same day at 1:17 ppm. A right-sided PICC line has been placed and appears to end in the region of the cavoatrial junction. The heart is enlarged. Increased pulmonary vascularity. No focal infiltrates or pneumothorax. No pleu ral effusions. Again noted is mild rightward tracheal deviation. XR/XR chest 1V portable [id number] IMPRESSION: 1. Right-sided PICC line appearing to end in the region of the cavoatrial junct ion. 2. Cardiac enlargement with increased pulmonary vascularity.
[2023-12-26 14:59] LABS: Troponin(5th) Baseline 698 ng/L (0-15)
[2023-12-26 15:03] LABS: Alanine Aminotransferase 10 U/L (0-41); Albumin Level 3.3 g/dL (3.5-5.2); Alkaline Phosphatase 90 U/L (40-130); Blood Urea Nitrogen 41 mg/dL (6-20); Calcium 6.5 mg/dL (8.5-10.5); Carbon Dioxide 21 mmol/L (22-29); Chloride 93 mmol/L (98-107); Creatinine Clr Calc Pharmacy 28.5662; Globulin 3.9 g/dL (1.3-4.6); Glomerular Filtration Rate 15.3 mL/min (90-130); Glucose 108 mg/dL (65-115); Lipase 12 U/L (13-60); Magnesium 1.8 mg/dL (1.7-2.3); Osmolality Calculated 297 mOsm/kg (285-295); Sodium 138 mmol/L (136-145); Total Bilirubin 0.7 mg/dL (0.15-1.2); Total Protein 7.2 g/dL (6.6-8.7)
[2023-12-26 15:11] LABS: Anion Gap 27.8 (5-19); Potassium 3.8 mmol/L (3.5-5.1)
[2023-12-26 15:12] LABS: Aspartate Amino Transferase 67 U/L (0-40)
--- NOTE | 2023-12-26 15:49 | ECG_ITS ---
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 Measurements Intervals [place] Rate: 84 P: 87 NM: 164 QRS: 167 QRSD: 132 T: 97 QT: 441 QTc: 522 Interpretive Statements SINUS RHYTHM RIGHT BUNDLE BRANCH BLOCK [120+ ms QRS DURATION, UPRIGHT V1, 40+ ms S IN I/aVL/V4/V5/V6] LEFT POSTERIOR FASCICULAR BLOCK [QRS AXIS > 109, INFERIOR Q] Compared to ECG 12/26/2023 13:13:48 First degree AV block no longer present Myocardial infarct finding no longer present Electronically Signed On 12-26-2023 16:44:53 CDT by Erik Arguelles M.D. [id number]
--- NOTE | 2023-12-26 15:50 | PICC.NOTE ---
?Triple lumen PICC placed to right basilic vein. Referred to vascular access nurse for PICC placement due to use of vasopressors. Risks and benefits discussed but pt unable to comprehend due to altered LOC. Informed consent obtained emergently via Dr. Banda. Right arm assessed with right basilic vein measuring 3.8 mm, straight, and apparent best choice for placement. Using sterile technique and MST, right basilic vein accessed x 1 stick. Mid-arm circumference measured 10 cm from right AC 25 cm. Trimmed cath 43 cm with 2 cm external length noted. CXR shows tip in cavoatrial junction, in good position for use per radiologist. Line secured with stat-lock. Insertion site covered with Biopatch, gauze, and TSM. Report given to bedside nurse, GILMER Pelayo.
[2023-12-26 15:52] LABS: Glucose Point of Care 59 mg/dL (70-110)
[2023-12-26 15:52] LABS: Glucose Point of Care 104 mg/dL (70-110)
[2023-12-26] MEDS: morphine 4 mg/mL SDV 1 mL 2 MG IVP (16:22)
[2023-12-26 16:34] LABS: Lactic Sepsis W/Reflex 2.8 mmol/L (0.5-2.2)
--- NOTE | 2023-12-26 16:38 | P.HP_ITS ---
Providers/Chief Complaint 2 Admitting Physician: Edil Bonner MD Primary Care Provider: Sulma Wetzel MD Chief Complaint: hypoglycemia/ unresponsive History of Present Illness Akil Velasco is a 53 year old male with past medical history of end-stage renal disease on hemodialysis, diabetic foot leading to amputation, CAD post PCI recently, liver cirrhosis with recurrent paracentesis, COPD, obstructive sleep apnea, type 2 diabetes mellitus, renal cell carcinoma post partial nephrectomy, [facility] GI bleed for which he required multiple blood transfusions, recurrent admissions with the last 3 months with last discharged to assisted on 12/13 was brought into the ER today because of poor mentation found to have hypoglycemia down to 30s. In the ER he was also found to be hypoxic for which she was placed on BiPAP and was hypotensive so was placed on Levophed. Currently on Levophed of 10. As per the is at bedside. Patient has had multiple episodes of unresponsiveness, decreased consciousness over the last 1 week since discharge. He has been undergoing dialysis and underwent complete session yesterday after which she was feeling weak and worn out. Given multiple admission, multiple comorbidities, poor prognosis goals of care discussion in detail with patient's at bedside. We discussed about poor quality of life with recurrent admissions recently because of multiple comorbidities including CAD requiring PCI, valvular disorder along with right- sided heart failure, end-stage renal disease on hemodialysis. We discussed that unfortunately patient has had multiple admissions to the hospital even though he is on maximum guideline guided medical therapy and has been getting sicker with each admission. states she understands that he is not will tolerate dialysis anymore and would prefer for him not to get dialysis going further. We discussed with home dialysis there is a high chance of patient having metabolic acidosis, having further fluid overload with concerns for worsening of his mentation and eventual . We discussed that patient has had multiple episodes and admissions to the hospital recently in cardiogenic shock, mechanical ventilation. states she would rather have him comfortable and does not want any escalation of care from current status. Does not want any cardiac angiogram or dialysis going further. She is okay with intubation for now till the family arrives though would like to avoid as much as possible. wants to wait for patient's sister to come in before making any further decisions beyond this point. Review of Systems 2 General: Reports: ROS unobtainable due to mental status Medications/Allergies Home Medications Medication Instructions Recorded Confirmed Last Taken Type Wheel Chair #1 ea 08/18/21 12/26/23 11/18/23 Rx ropinirole 0.25 mg tablet 0.25 mg PO BEDTIME Restless Leg(S) 08/22/21 12/26/23 11/22/23 History ondansetron HCl 4 mg tablet 4 mg PO Q4H PRN Nausea 04/11/22 12/26/23 11/22/23 History Compression Stockings #1 ea 04/12/22 12/26/23 11/18/23 Rx telida boot modification #1 ea 07/17/22 12/26/23 11/18/23 Rx oxycodone 5 mg tablet 5 mg PO Q4H PRN Pain 08/16/22 12/26/23 11/22/23 History B-complex with vitamin C 1 cap PO DAILY 10/16/22 12/26/23 12/11/23 History albuterol sulfate 90 mcg/actuation 2 puff inhalation Q6H PRN 10/16/22 12/26/23 11/01/23 History aerosol inhaler Shortness Of Breath diphenhydramine HCl 25 mg tablet 25 mg PO DAILY PRN itching 10/16/22 12/26/23 11/09/23 History (Benadryl Allergy) polyethylene glycol 3350 17 17 g PO BID PRN Constipation 10/16/22 12/26/23 11/01/23 History gram/dose oral powder (Miralax) Prevalon boot #1 ea 11/21/22 12/26/23 11/18/23 Rx diabetic shoes with 3 heat molded #1 ea 12/15/22 12/26/23 11/18/23 Rx insoles gabapentin 300 mg capsule 300 mg PO Q8H PRN NERVE PAIN 01/02/23 12/26/23 11/22/23 History vit B,C-folic ac 800 mcg-zinc 12.5 1 tab PO DAILY 05/07/23 12/26/23 12/11/23 History mg-selen-D3 2,000 unit-vit E tablet (RenaPlex-D) clopidogrel 75 mg tablet 75 mg PO DAILY 07/02/23 12/26/23 12/11/23 History arginine 7 gram-glutam 7 1 packet PO BID 10/16/23 12/26/23 12/11/23 History gram-CaHMB 1.5 vbsy-cbauw-tc-min oral pwd pkt (Mehdi (with collagen)) sodium zirconium cyclosilicate 10 See Rx Instructions .Route .COMPLEX 10/16/23 12/26/23 12/04/23 History gram oral powder packet (Lokelma) trazodone 50 mg tablet 50 mg PO BEDTIME 10/16/23 12/26/23 12/10/23 History nitroglycerin 0.4 mg sublingual 0.4 mg buccal DAILY PRN Chest Pain 11/05/23 12/26/23 11/22/23 History tablet amiodarone 200 mg tablet (Pacerone) 200 mg PO DAILY 11/19/23 12/26/23 12/11/23 History midodrine 5 mg tablet 10 mg PO TID 12/11/23 12/26/23 Unknown History fludrocortisone 0.1 mg tablet 0.2 mg (2 x 0.1 mg) PO DAILY #60 12/14/23 12/26/23 Unknown Rx tabs apixaban 5 mg tablet (Eliquis) 5 mg PO BID 12/26/23 12/26/23 Unknown History carboxymethyl 0.5 %-glycerin 1 1 drp ophthalmic (eye) Q4H PRN Dry 12/26/23 12/26/23 Unknown History %-polysorb 80 0.5 %-PF eye Eyes dropperette levothyroxine 25 mcg tablet 25 mcg PO DAILY 12/26/23 12/26/23 Unknown History lorazepam 2 mg/mL oral concentrate 0.25 - 0.5 mg PO Q6H PRN COMFORT 12/26/23 12/26/23 Unknown History CARES miconazole nitrate 2 % topical 1 applic topical BID 12/26/23 12/26/23 Unknown History cream morphine concentrate 100 mg/5 mL 5 mg PO Q2H PRN SHORTNESS OF 12/26/23 12/26/23 Unknown History (20 mg/mL) oral solution BREATH OR PAIN morphine concentrate 100 mg/5 mL 10 mg PO Q2H PRN COMFORT CARE 12/26/23 12/26/23 Unknown History (20 mg/mL) oral solution nitroglycerin 0.1 mg/hr 1 patch transdermal DAILY 12/26/23 12/26/23 Unknown History transdermal 24 hour patch pantoprazole 40 mg tablet,delayed 40 mg PO DAILY 12/26/23 12/26/23 Unknown History release Allergies Allergy/AdvReac Type Severity Reaction Status Date / Time vancomycin Allergy Unknown ADR-Itching Verified 12/07/23 08:36 ,Rash linezolid [From Zyvox] Allergy tendonitis Verified 12/07/23 08:36 ciprofloxacin [From Cipro] AdvReac Severe Tendonitis Verified 12/07/23 08:36 dextrose 5 % in water Allergy Unknown tendonitis Uncoded 12/07/23 08:36 PFSH Acute 2 PFSH: Medical History (Updated 12/26/23 @ 17:11 by Edil Bonner MD) Atrial fibrillation Type 2 diabetes mellitus CHF (congestive heart failure), NYHA class III Poor prognosis Hepatorenal syndrome Sarcopenia Cirrhosis singletary Hypotension, chronic Anemia Acute hypoxic respiratory failure End stage renal disease on dialysis Anemia requiring transfusions Aortic stenosis Noncompliance End-stage renal disease on hemodialysis Anasarca Uremia Chronic osteomyelitis 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, limited to breakdown of skin Chronic osteomyelitis of right foot Foot osteomyelitis, right Osteomyelitis Cellulitis Necrosis of surgical wound Foot osteomyelitis, left Hypovolemic shock Anemia of chronic disease Ulcer of sacral region, stage 1 Gas gangrene Acquired equinovarus deformity of left foot Pre-ulcerative calluses Xerosis of skin 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 Cellulitis Diabetes BMI 50.0-59.9, adult Diabetic foot ulcers Fracture, thoracic vertebra T7-T8 Osteomyelitis Non-pressure chronic ulcer of other part of right foot with necrosis of muscle Chronic venous insufficiency Chronic dysfunction of both eustachian tubes Lung nodule Hypoglycemia unawareness associated with type 2 diabetes mellitus Chronic ulcer of left foot with fat layer exposed Non-healing ulcer of right foot with fat layer exposed Vitamin D deficiency First degree heart block COPD (chronic obstructive pulmonary disease) Hypertension Urinary retention History of renal cell carcinoma Morbid obesity with BMI of 40.0-44.9, adult Cardiac arrest Anemia Pneumonia due to 2018-nCo (~07/2020) Renal cell carcinoma History bilateral renal cell carcinoma 2007 then recurrence on the contralateral side 2011. No recurrence for long-term follow-up with some suspicion on CT scan April 2020. Chronic respiratory failure with hypoxia and hypercapnia Obesity hypoventilation syndrome Metabolic alkalosis Accelerated hypertension Restrictive lung disease Obstructive sleep apnea non compliant with home bipap/cpap Fracture of fourth metatarsal bone of left foot Type 2 diabetes mellitus with diabetic polyneuropathy PVD (peripheral vascular disease) Fracture of fifth metatarsal bone of left foot Neuropathy Surgical History Status post below-knee amputation of left lower extremity History of left below knee amputation History of cataract surgery H/O wisdom tooth extraction Hx of lymph node excision H/O partial nephrectomy bilateral Family History Father , at age 65 Diabetes Cancer Metastatic prostate cancer to liver Mother , at age 72 Diabetes Grandfather Diabetes Cancer Other Anemia Hyperlipidemia Social History Smoking and tobacco/nicotine status: never used tobacco/nicotine Second hand smoke exposure: Yes Alcohol intake: current Alcohol intake frequency: holidays/special occasions only Substance/Drug Use: never Lives independently: Yes Household members: spouse Housing: House Marital status: service: No Current occupational status: retired Pets and animals: Yes Do you think of yourself as: Straight/Heterosexual Current gender identity: Male Vitals/I&O/Wt Last Vital Signs Temp 98.4 F 12/26/23 14:10 Pulse 84 12/26/23 15:41 Resp 20 H 12/26/23 13:17 BP 74/48 12/26/23 13:17 Pulse Ox 97 12/26/23 15:41 FiO2 50 12/26/23 15:41 12/26/23 12/26/23 12/26/23 06:59 14:59 22:59 Intake Total 382.95 / 382.95 60 / 442.95 Balance 382.95 / 382.95 60 / 442.95 Weight last 48 hrs Weight 122.47 kg Physical Exam 2 Narrative: General: On BiPAP, drowsy, not following directions, moving all limbs HEENT: PERRLA, pupils bilaterally equal and reactive Chest: Bronchial breath sounds all over lung ray with occasional rhonchi, decreased air entry all over more so in bilateral lower zone CVS: S1-S2 regular, no murmurs, no tachycardia, no gallops, no rubs Abdomen: Soft, nontender, no organomegaly, bowel sounds present Neuro: Moving all limbs, GCS: E1 M5 V1 Data 12/26/23 14:33 12/26/23 14:33 Micro: Microbiology 12/26/23 15:55 Blood Culture - Preliminary Blood SPECIMEN COLLECTED 12/26/23 15:42 Blood Culture - Preliminary Blood SPECIMEN COLLECTED A&P Assessment and plan (1) Altered mental status: Most likely in setting of shock, hypoglycemia, hypoxia and hypercapnia, metabolic acidosis. Cannot rule out hepatic encephalopathy given history of liver cirrhosis. Mentation slightly improving after blood sugars being better and being on BiPAP with improvement in oxygenation and improvement in blood pressures being on Levophed. Continue to monitor. Maintain BiPAP. Keep NPO. (2) Shock: Currently on Levophed of 4. Blood pressure is being maintained. Try to wean keeping mean artery pressure less than 65. As per goals of care discussion do not escalate Levophed more than 5. Cardiogenic in nature most likely. Infectious less likely. Patient does not have leukocytosis, no active signs of infection, no fever. Hold off on antibiotics for now. Check blood cultures. Patient hypervolemic currently. Takes fludrocortisone at baseline. Start on stress dose steroids with hydrocortisone 100 mg IV stat followed by 50 mg every 8 hours. (3) Hypoglycemia: Improving. Hypoglycemia protocol. Steroid as above. (4) End stage kidney disease: On maintenance hemodialysis. As per goals of care discussion family does not want him to have any further dialysis. Patient has been getting more hypotensive and weaker after each session of dialysis. (5) Acute respiratory failure: Most likely in setting of hypovolemia along with poor mentation. Mild hypercapnia and hypoxia on the ABG. Maintain BiPAP. Oxygen supplementation keeping saturation 90%. (6) Acute non-ST elevation myocardial infarction (NSTEMI): Last cardiac angiogram from earlier this year showed critical ostial left circumflex in-stent restenosis and severe stenosis of OM1 treated with balloon angioplasty of the ostial left circumflex and DAVE x 1 to the OM1. Troponin in the ER found to be more than 600. Cycle troponins. Start on heparin drip. Patient has a history of recent GI bleed requiring multiple transfusions. Discussed merits of CT merits of being on heparin drip. is okay with being on heparin drip for a while while monitoring hemoglobin. If hemoglobin drops will have to stop heparin drip. Rectal aspirin. As per goals of care discussion would not want cardiac angiogram. (7) CHF (congestive heart failure), NYHA class III: Last echocardiogram results appreciated. History of right-sided heart failure along with possible aortic stenosis. Continue to monitor. BiPAP as above. (8) Atrial fibrillation: Currently rate controlled. Takes amiodarone 200 mg daily at home. Possibly also takes Eliquis 5 mg twice daily. When last discharged patient was not on Eliquis but currently seems to be on Eliquis as per the medical reconciliation from the assisted. Will confirm. Heparin as above. 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 Qualifiers: Atrial fibrillation type: unspecified Qualified Code(s): I48.91 - Unspecified atrial fibrillation (9) Type 2 diabetes mellitus: Currently hypoglycemic. Hypoglycemia protocol. Qualifiers: Chronic kidney disease stage: on chronic dialysis Diabetes mellitus complication detail: with chronic kidney disease Diabetes mellitus complication status: with kidney complications Diabetes mellitus intermediate insulin use: [facility] intermediate use Qualified Code(s): E11.22 - Type 2 diabetes mellitus with diabetic chronic kidney disease; N18.6 - End stage renal disease; Z99.2 - Dependence on renal dialysis (10) Goals of care, counseling/discussion: (11) Metabolic acidosis: Plan Anemia: Recent history of GI bleed requiring multiple transfusion. Hemoglobin at baseline for now. Heparin drip as above. Target hemoglobin over 8. Monitor hemoglobin every 12 hours for now. IV Protonix every 12 hours, Carafate ACHS. CODE STATUS: Limited resuscitation. NPO except medications. Heparin drip will be sufficient for DVT prophylaxis Protonix every 12 hours will be sufficient for PUD prophylaxis Attestations 2 Medical Necessity Statement*: The high probability of a clinically significant, sudden or life threatening deterioration of the patient's [cardiac, endocrine, neurological, renal, goals of care discussion] system(s) required my full and direct attention, intervention and personal management. The critical care time is as shown. This time is in addition to time spent performing any reported procedures but includes the following: [x] Data and vital sign review and interpretation [x] Patient assessment, examination and intervention [x] Documentation [x] Medication orders and management Critical Care Time: Critical Care Time (min): 80 Coding Level of Care Code Critical Care >/= 30 minutes Critical care time (in minutes): 80 The high probability of a clinically significant, sudden or life threatening deterioration, as referenced in this documentation, required my full and direct attention, intervention and personal management. The critical care time shown is in addition to time spent performing any reported separately billable procedures and includes the following: [x] Data and vital sign review and interpretation [x ] Patient assessment, examination and intervention [x] Medication orders and management [x] Patient/Family updates as able [x] Care Coordination and Documentation. Diagnoses Altered mental status R41.82 Shock R57.9 Hypoglycemia E16.2 End stage kidney disease N18.6 Acute respiratory failure J96.00 Acute non-ST elevation myocardial infarction (NSTEMI) I21.4 Chronic diastolic congestive heart failure, NYHA class 3 I50.9 Atrial fibrillation, unspecified type I48.91 Atrial fibrillation type: unspecified Type 2 diabetes mellitus with chronic kidney disease on chronic dialysis, without long-term current use of insulin E11.22; N18.6; Z99.2 Chronic kidney disease stage: on chronic dialysis Diabetes mellitus complication detail: with chronic kidney disease Diabetes mellitus complication status: with kidney complications Diabetes mellitus intermediate insulin use: without terminal manager use Goals of care, counseling/discussion Z71.89 Metabolic acidosis E87.20
--- NOTE | 2023-12-26 16:54 | PC.NURSE ---
Arrived from ER, ao to self and hospital. goal per Dr. Bonner no escalation of care at this time, waiting on family to see patient
[2023-12-26 17:24] LABS: Troponin 5 2HR Delta 16.8 ABS# (0-10)
[2023-12-26 17:25] LABS: Troponin 5 2HR 714.8 ng/L (0-15)
[2023-12-26 17:36] LABS: INR 2.49 (0.8-1.2)
[2023-12-26] MEDS: hydrocortisone 100 mg/2 mL SDV IVP (17:43)
[2023-12-26 17:53] LABS: Reflex Lactate Order REFLEX LACTIC ORDERD
[2023-12-26] MEDS: heparin drip 25,000 UNIT/500 ML PREMIX 35 UNIT IV (18:11)
[2023-12-26 18:38] LABS: Procalcitonin 0.44 ng/mL (0-0.5)
--- NOTE | 2023-12-26 18:54 | PC.NURSE ---
refused foly cath aware
--- NOTE | 2023-12-26 19:38 | ECG_ITS ---
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 Measurements Intervals [place] Rate: 80 P: 81 VA: 204 QRS: 169 QRSD: 121 T: 63 QT: 413 QTc: 477 Interpretive Statements SINUS RHYTHM RIGHT AXIS DEVIATION [QRS AXIS > 100] RIGHT BUNDLE BRANCH BLOCK [120+ ms QRS DURATION, UPRIGHT V1, 40+ ms S IN I/aVL/V4/V5/V6] POSSIBLE SEPTAL MYOCARDIAL INFARCTION , OF INDETERMINATE AGE [30 ms Q WAVE IN V1/V2] Compared to ECG 12/26/2023 16:52:52 Right-axis deviation now present Myocardial infarct finding now present Left posterior fascicular block no longer present Electronically Signed On 12-27-2023 7:58:06 CDT by Erik Arguelles M.D. [email or web address]
[2023-12-26] MEDS: ipratropium-albuterol 3 mL Neb INHALATION (20:24)
[2023-12-26 20:41] LABS: Lactic Acid level (Lactate) 1.3 mmol/L (0.5-2.2)
[2023-12-26 20:51] LABS: Troponin 5 6HR 987.2 ng/L (0-15); Troponin 5 6HR Delta 289.2 ng/L (0-12)
[2023-12-26 20:58] LABS: Ammonia 43 umol/L (16-60)
[2023-12-26] MEDS: hydrocortisone 100 mg/2 mL SDV 50 MG IVP (21:11)
[2023-12-26] MEDS: midodrine 5 mg TABLET 10 MG PO (21:11)
[2023-12-26] MEDS: ropinirole 0.25 mg Tablet PO (21:11)
[2023-12-26 21:45] LABS: Glucose Point of Care 161 mg/dL (70-110)
[2023-12-26] MEDS: norepinephrine 4 MG/250 ML BAG 22.5 MG IV (23:21)
[2023-12-27] VITALS (53 sets, daily range): BP systolic 79–166; BP diastolic 21–124; PULSE 69–89; RESP 10–32; TEMP 35.9–37.1; O2SAT 66–100; BMI 36.1
[2023-12-27] MEDS: ipratropium-albuterol 3 mL Neb INHALATION ×4 (02:54→20:19)
--- NOTE | 2023-12-27 02:57 | PC.RESP ---
Patient came off bipap at around 0130 to eat and was placed back o bipap at this time.
[2023-12-27 03:44] LABS: Basophils % 0.2 %; Hematocrit 27.5 % (37-53); Lymphocytes # 0.4 10^3/uL (0.8-4.8); Lymphocytes % 6.2 %; Mean Corpuscular HGB Conc 29.8 g/dL (30-55); Mean Corpuscular Hemoglobin 30.4 pg (27-33); Mean Corpuscular Volume 101.9 fl (82-101); Mean Platelet Volume 11.5 fL (7.4-10.4); Monocytes # 0.1 10^3/uL (0.2-0.9); Monocytes % 2.2 %; Neutrophils # 5.83 10^3/uL (1.8-7.7); Neutrophils % 90.9 %; Nucleated Red Blood Cells % 0.5 %; Platelet Count 138 10^3/cmm (157-399); Red Cell Distribution Width 21.9 % (12.1-15.1); White Blood Count 6.41 10^3/uL (3.29-11.43)
[2023-12-27 04:14] LABS: Alanine Aminotransferase 11 U/L (0-41); Alkaline Phosphatase 82 U/L (40-130); Anion Gap 19.5 (5-19); Blood Urea Nitrogen 50 mg/dL (6-20); Carbon Dioxide 29 mmol/L (22-29); Chloride 91 mmol/L (98-107); Creatinine Clr Calc Pharmacy 25.5089; Globulin 4.3 g/dL (1.3-4.6); Glomerular Filtration Rate 13.4 mL/min (90-130); Glucose 177 mg/dL (65-115); Magnesium 1.8 mg/dL (1.7-2.3); Osmolality Calculated 298 mOsm/kg (285-295); Potassium 4.5 mmol/L (3.5-5.1); Sodium 135 mmol/L (136-145); Total Bilirubin 0.5 mg/dL (0.15-1.2); Total Protein 7.3 g/dL (6.6-8.7)
[2023-12-27 04:15] LABS: Aspartate Amino Transferase 64 U/L (0-40); Procalcitonin 1.69 ng/mL (0-0.5)
[2023-12-27 05:28] LABS: Glucose Point of Care 224 mg/dL (70-110)
--- NOTE | 2023-12-27 05:52 | PC.NURSE ---
Patient adamant about eating, stated If I am going to I don't want to be denied food. Spoke with Dr. Barclay about it and he said as long as the patient can tolerate being off of Bipap to have oral intake he was ok with him eating. Pt was placed on nasal cannula and was able to eat. Pt tolerated well.
[2023-12-27 06:08] LABS: Glucose Point of Care 156 mg/dL (70-110)
[2023-12-27 08:04] LABS: Glucose Point of Care 151 mg/dL (70-110)
[2023-12-27 08:23] LABS: Partial Thromboplastin Time 57.3 SECONDS (23.9-36.7)
[2023-12-27] MEDS: levothyroxine 25 mcg Tablet PO (08:45)
[2023-12-27] MEDS: hydrocortisone 100 mg/2 mL SDV 50 MG IVP ×2 (08:45→19:37)
[2023-12-27] MEDS: pantoprazole 40 mg SDV IVP (08:45)
[2023-12-27] MEDS: clopidogrel 75 mg Tablet PO (08:45)
[2023-12-27] MEDS: amiodarone 200 mg Tablet PO (08:45)
[2023-12-27] MEDS: midodrine 5 mg TABLET 10 MG PO ×3 (08:45→19:37)
[2023-12-27] MEDS: heparin drip 25,000 UNIT/500 ML PREMIX 32 UNIT IV (09:28)
[2023-12-27 09:47] LABS: Blood Gas Allen Test Pos; Blood Gas Sample Type Arterial
[2023-12-27 10:00] LABS: ABG PH Result 7.31 (7.35-7.45); Arterial Blood Gas Hematocrit 25.7 % (42-52); Base Excess ABG 1.6 mmol/L (-2.0-2.0); Blood Gas Operator Identificat MONRO; Blood Gas Sample Site Radial, right; HCO3 ABG 28.4 mmol/L (22-26); Oxygen Device NC; PO2 ABG 92.3 mmHg (80.0-100.0); PO2 FiO2 Ratio Arterial Blood 0
--- NOTE | 2023-12-27 11:42 | PC.NURSE ---
Dr. Bonner at bedside this AM, patient expressed desire to be full code and do everything necessary to prolong life. plan to consult nephrology and cardiology, wait to drain abdomen drain after dialysis
[2023-12-27 12:47] LABS: Troponin T (5th) Once 1372 ng/L (0-15)
--- NOTE | 2023-12-27 12:55 | USCV_ITS ---
Rod Akil Age: 53 Gender: M : 1970 Exam Date: 12/27/2023 14:26 Ordering Phys: Edil Bonner MD Technologist: Exam Location: [facility] [place] Indication: chf ? new mi BP: 93 / 58 HR: Rhythm: Sinus Technical Quality: Fair MEASUREMENTS (Male / Female) Normal Values 2D ECHO LVOT Diameter 2.1 cm LV Ejection Fraction MOD 2C 47.6 % LV Ejection Fraction 2C AL 49.0 % LA Diameter 4.7 cm RA Systolic Volume 4C AL 143.1 ml RA Systolic Volume 4C MOD 136.3 ml IVC Diameter 3.2 cm M-MODE LA Ao Ratio MM 1.3 AV Cusp Separation MM 1.6 cm FINDINGS Left Ventricle Right Ventricle Right Atrium Left Atrium Mitral Valve Aortic Valve Tricuspid Valve Pulmonic Valve Pericardium Aorta IVC CONCLUSIONS LV systolic function is mildly reduced with EF of 40-45%. Mild global hypokinesis. Compared to prior echocardiogram from 10/2023, LV systolic function is mildly reduced. Erik Arguelles MD (Electronically Signed) Final Date: 27 Dec 2023 18:46 S
--- NOTE | 2023-12-27 12:58 | PM.PN ---
Subjective Subjective: No acute events overnight. Levophed was discontinued earlier today morning. Patient is currently on 6 L of oxygen supplementation. Patient is awake and alert and able to have conversation. He seems to be back to his baseline mentation. Denies any nausea, vomiting, headache. Denies any chest pain. Denies any new complaints recently other than diarrhea few weeks ago. Complains of occasional chest heaviness specially around dialysis. Vitals/I&O/Wt Last Vital Signs Temp 98.8 F 12/27/23 09:00 Pulse 77 12/27/23 12:00 Resp 23 H 12/27/23 12:00 BP 109/74 12/27/23 12:00 Pulse Ox 93 12/27/23 12:00 O2 Del Method Nasal Cannula 12/27/23 07:46 O2 Flow Rate 6 12/27/23 07:46 FiO2 50 12/27/23 06:00 12/26/23 12/27/23 12/27/23 22:59 06:59 14:59 Intake Total 78.75 / 586.70 702.500 / 1289.200 485.000 / 485.000 Balance 78.75 / 586.70 702.500 / 1289.200 485.000 / 485.000 Weight last 48 hrs Weight 124.239 kg Weight 124.239 kg Weight 122.924 kg Weight 122.47 kg Physical Exam Narrative: General: AOx3, no acute distress, on nasal cannula, chronically sick appearing HEENT: PERRLA, pupils bilaterally equal and reactive Chest: Bronchial breath sounds all over lung ray with occasional rhonchi, decreased air entry all over more so in bilateral lower zone CVS: S1-S2 regular, no murmurs, no tachycardia, no gallops, no rubs Abdomen: Soft, nontender, no organomegaly, bowel sounds present Neuro: Moving all limbs, no focal deficit Data 12/27/23 03:15 12/27/23 03:15 Micro: Microbiology 12/26/23 15:55 Blood Culture - Preliminary Blood SPECIMEN COLLECTED 12/26/23 15:42 Blood Culture - Preliminary Blood SPECIMEN COLLECTED A&P Assessment and plan (1) Shock: Most likely cardiogenic in nature. Patient does not seem to have any sign of infection. Has remained afebrile without leukocytosis. Denies any diarrhea, difficulty in breathing, cough, dysuria. Keep mean arterial pressure over 65. Levophed to be maintained accordingly. Continue with home dose of midodrine. Continue with hydrocortisone 50 mg twice daily for now. Patient will most likely get dialysis today. Will have to monitor hemodynamics accordingly. Hold off on paracentesis for now till post dialysis. Follow-up blood cultures. (2) Acute non-ST elevation myocardial infarction (NSTEMI): Last cardiac angiogram from earlier this year showed critical ostial left circumflex in-stent restenosis and severe stenosis of OM1 treated with balloon angioplasty of the ostial left circumflex and DAVE x 1 to the OM1. Troponin cycled trended positive. 6-hour troponin around thousand. Repeat troponin today morning. Continue with heparin drip while monitoring hemoglobin given recent history of intra-abdominal bleeding. Patient is agreeable for continuation of heparin drip. Discussed in detail with cardiology on-call. Will consult. Echocardiogram with and without contrast limited study for regional wall motion abnormality. Will plan for further revascularization as per the echocardiogram results. Continue with home dose of Plavix, Eliquis. (3) Acute respiratory failure: Most likely in setting of hypervolemia along with poor mentation. Resolving. Keep oxygen saturation over 90%. BiPAP accordingly. Wean oxygen supplementation accordingly. Pulmicort twice daily, ipratropium, Xopenex every 6 hours. (4) End stage kidney disease: On maintenance hemodialysis. Patient is okay with hemodialysis. Gets Sunday, and Sunday. Will consult nephrology. Patient does have metabolic acidosis currently. (5) CHF (congestive heart failure), NYHA class III: Last echocardiogram results appreciated. History of right-sided heart failure along with possible aortic stenosis. Continue to monitor. Plan for dialysis today. (6) Goals of care, counseling/discussion: On admission as patient was altered. Per discussions were done with patient's DPOA including his and sister at bedside. At that time family had wished for DNR/DNI, no further dialysis, revascularization for ACS, no escalation of care. Today patient is awake and alert. Further goals of care discussions were done in detail with the patient. We discussed about quality of life versus quantity of life. We discussed unfortunately even with maximum medical therapy patient continues to have recurrent hospitalization and is getting weaker and sicker with his hospitalization secondary to his history of end-stage renal disease, significant liver cirrhosis, congestive heart failure in setting of CAD, COPD. Patient verbalizes understanding. He states for now quality of life is less important to him than quantity of life and he wants to live for as long as possible. Going further once his sickle quality of life would be more important but for now he would like to live for as long as possible. He wants to pursue revascularization if needed, continue hemodialysis. He is okay with short cycle of chest compression if needed and mechanical ventilation. CODE STATUS changed to full code. Cardiology and nephrology have been consulted for non-ST elevation NJ and end-stage renal disease requiring hemodialysis. (7) Atrial fibrillation: Currently rate controlled. Takes amiodarone 200 mg daily at home. Possibly also takes Eliquis 5 mg twice daily. When last discharged patient was not on Eliquis but currently seems to be on Eliquis as per the medical reconciliation from the skilled nursing. Will confirm. Heparin as above. If hemoglobin remained stable on heparin we will plan to discharge on Eliquis. monitor technician. Qualifiers: Atrial fibrillation type: unspecified Qualified Code(s): I48.91 - Unspecified atrial fibrillation (8) Altered mental status: Most likely in setting of shock, hypoglycemia, hypoxia and hypercapnia, metabolic acidosis. Hepatic encephalopathy ruled out with normal ammonia levels. Mentation back to baseline. Restart diet. (9) Type 2 diabetes mellitus: Hypoglycemia protocol. Appreciate recent A1c. Qualifiers: Diabetes mellitus nursing home insulin use: without superintendent [employer] use Diabetes mellitus complication status: with kidney complications Diabetes mellitus complication detail: with chronic kidney disease Chronic kidney disease stage: on chronic dialysis Qualified Code(s): E11.22 - Type 2 diabetes mellitus with diabetic chronic kidney disease; N18.6 - End stage renal disease; Z99.2 - Dependence on renal dialysis (10) Hypoglycemia: Improved. Hypoglycemia protocol ACHS. (11) Metabolic acidosis: Plan Anemia: Recent history of intra-abdominal requiring multiple transfusion. Hemoglobin at baseline for now. Heparin drip as above. Target hemoglobin over 8. Monitor hemoglobin every 12 hours for now. IV Protonix every 12 hours, Carafate ACHS. Liver cirrhosis: Appreciate INR and liver functions on admission. Ammonia level stable. Patient does have a paracentesis drain. For now we will hold off on paracentesis till after hemodialysis. Will plan for paracentesis as per hemodynamics after hemodialysis. Discussed in detail with the patient that going forward he should have a paracentesis done twice a week on Sunday and Sunday which are his nondialysis days of not more than 1 L per each session. Also advised to hold off on removal of fluid if he is having diarrhea or decreased oral intake. CODE STATUS: Limited resuscitation. NPO except medications. Heparin drip will be sufficient for DVT prophylaxis Protonix every 12 hours will be sufficient for PUD prophylaxis Attestations Medical Necessity Statement*: Requires further hospitalization for management of non-ST elevation NJ in a patient who was admitted with cardiogenic shock, persistent hypoglycemia, adrenal insufficiency on IV steroids, end-stage renal disease on hemodialysis Critical Care Time: The high probability of a clinically significant, sudden or life threatening deterioration of the patient's [cardiac, pulmonary, nephrology, goals of care discussion] system(s) required my full and direct attention, intervention and personal management. The critical care time is as shown. This time is in addition to time spent performing any reported procedures but includes the following: [x] Data and vital sign review and interpretation [x] Patient assessment, examination and intervention [x] Documentation [x] Medication orders and management Critical Care Time (min): 80 Coding Level of Care Code Critical Care >/= 30 minutes Critical care time (in minutes): 80 The high probability of a clinically significant, sudden or life threatening deterioration, as referenced in this documentation, required my full and direct attention, intervention and personal management. The critical care time shown is in addition to time spent performing any reported separately billable procedures and includes the following: [x] Data and vital sign review and interpretation [x] Patient assessment, examination and intervention [x] Medication orders and management [x] Patient/Family updates as able [x] Care Coordination and Documentation. Other Coding Information This patient has a high probability of clinically significant, sudden or life threatening deterioration of the patient's (neurological/pulmonary/cardiac/renal/ID/endocrine) systems required my full, direct attention, the highest level of physician preparedness for urgent intervention and personal management. I managed/supervised life or organ supporting interventions that required frequent physician assessment. I devoted my full attention in the ICU to the direct care of this patient for the period of time indicated above. Time I spent with family or surrogate(s) is included only if the patient was incapable of providing necessary information or participating in decision making. This time includes the following services provided: Telemetry review Hemodynamic interpretation, assessment and management Review and interpretation of CXR Review and interpretation of lab values Review and interpretation of microbiologic data and culture results Review of medications and administration Review and interpretation of Nutrition requirements and management Discussion of management with other consultants and services Clinical update to family members Diagnoses Shock R57.9 Acute non-ST elevation myocardial infarction (NSTEMI) I21.4 Acute respiratory failure J96.00 End stage kidney disease N18.6 Chronic diastolic congestive heart failure, NYHA class 3 I50.9 Goals of care, counseling/discussion Z71.89 Atrial fibrillation, unspecified type I48.91 Atrial fibrillation type: unspecified Altered mental status R41.82 Type 2 diabetes mellitus with chronic kidney disease on chronic dialysis, without long-term current use of insulin E11.22; N18.6; Z99.2 Diabetes mellitus nursing home insulin use: without nursing home use Diabetes mellitus complication status: with kidney complications Diabetes mellitus complication detail: with chronic kidney disease Chronic kidney disease stage: on chronic dialysis Hypoglycemia E16.2 Metabolic acidosis E87.20
[2023-12-27 13:09] LABS: Glucose Point of Care 163 mg/dL (70-110)
--- NOTE | 2023-12-27 14:58 | PM.CONSULT ---
Providers/Reason For Consult Consulting Physician/Specialty*: domonique patel md /telenephrology Reason for Consult*: ESRD care Requesting Physician: Dr Cynthia Bonner Attending Physician: Edil Bonner MD Primary Care Provider: Sulma eWtzel MD History of Present Illness History of Present Illness Akil Velasco is a 53 year old male w/ HFpEF, right heart failure, , CAD, valvular heart disease, ESRD, liver cirrhosis, GI bleed, Type 2DM, COPD, renal cell carcinoma post partial nephrectomy, recurrent admissions with the last 3 months with last discharged to correction on 12/14/23. He was admitted on 12/26/23 w/ poor mentation, hypoglycemia down to 30s, hypoxemia for which he was placed on BiPAP and was hypotensive - was placed on Levophed. He was given stress dose steroids. Today he has improved, he is off of levophed and renal has been called to consult. Review of Systems Narrative: weak, sob, + ascites. dec edema, HR conbtrolled. much more awake. no n/v/f/c/acosta/d/cp Medications/Allergies Home Medications Medication Instructions Recorded Confirmed Last Taken Type Wheel Chair #1 ea 08/18/21 12/26/23 11/18/23 Rx ropinirole 0.25 mg tablet 0.25 mg PO BEDTIME Restless Leg(S) 08/22/21 12/26/23 11/22/23 History ondansetron HCl 4 mg tablet 4 mg PO Q4H PRN Nausea 04/11/22 12/26/23 11/22/23 History Compression Stockings #1 ea 04/12/22 12/26/23 11/18/23 Rx m[place] boot modification #1 ea 07/17/22 12/26/23 11/18/23 Rx oxycodone 5 mg tablet 5 mg PO Q4H PRN Pain 08/16/22 12/26/23 11/22/23 History B-complex with vitamin C 1 cap PO DAILY 10/16/22 12/26/23 12/11/23 History albuterol sulfate 90 mcg/actuation 2 puff inhalation Q6H PRN 10/16/22 12/26/23 11/01/23 History aerosol inhaler Shortness Of Breath diphenhydramine HCl 25 mg tablet 25 mg PO DAILY PRN itching 10/16/22 12/26/23 11/09/23 History (Benadryl Allergy) polyethylene glycol 3350 17 17 g PO BID PRN Constipation 10/16/22 12/26/23 11/01/23 History gram/dose oral powder (Miralax) Prevalon boot #1 ea 11/21/22 12/26/23 11/18/23 Rx diabetic shoes with 3 heat molded #1 ea 12/15/22 12/26/23 11/18/23 Rx insoles gabapentin 300 mg capsule 300 mg PO Q8H PRN NERVE PAIN 01/02/23 12/26/23 11/22/23 History vit B,C-folic ac 800 mcg-zinc 12.5 1 tab PO DAILY 05/07/23 12/26/23 12/11/23 History mg-selen-D3 2,000 unit-vit E tablet (RenaPlex-D) clopidogrel 75 mg tablet 75 mg PO DAILY 07/02/23 12/26/23 12/11/23 History arginine 7 gram-glutam 7 1 packet PO BID 10/16/23 12/26/23 12/11/23 History gram-CaHMB 1.5 owgi-qhqns-vt-min oral pwd pkt (Mehdi (with collagen)) sodium zirconium cyclosilicate 10 See Rx Instructions .Route .COMPLEX 10/16/23 12/26/23 12/04/23 History gram oral powder packet (Lokelma) trazodone 50 mg tablet 50 mg PO BEDTIME 10/16/23 12/26/23 12/10/23 History nitroglycerin 0.4 mg sublingual 0.4 mg buccal DAILY PRN Chest Pain 11/05/23 12/26/23 11/22/23 History tablet amiodarone 200 mg tablet (Pacerone) 200 mg PO DAILY 11/19/23 12/26/23 12/11/23 History midodrine 5 mg tablet 10 mg PO TID 12/11/23 12/26/23 Unknown History fludrocortisone 0.1 mg tablet 0.2 mg (2 x 0.1 mg) PO DAILY #60 12/14/23 12/26/23 Unknown Rx tabs apixaban 5 mg tablet (Eliquis) 5 mg PO BID 12/26/23 12/26/23 Unknown History carboxymethyl 0.5 %-glycerin 1 1 drp ophthalmic (eye) Q4H PRN Dry 12/26/23 12/26/23 Unknown History %-polysorb 80 0.5 %-PF eye Eyes dropperette levothyroxine 25 mcg tablet 25 mcg PO DAILY 12/26/23 12/26/23 Unknown History lorazepam 2 mg/mL oral concentrate 0.25 - 0.5 mg PO Q6H PRN COMFORT 12/26/23 12/26/23 Unknown History CARES miconazole nitrate 2 % topical 1 applic topical BID 12/26/23 12/26/23 Unknown History cream morphine concentrate 100 mg/5 mL 5 mg PO Q2H PRN SHORTNESS OF 12/26/23 12/26/23 Unknown History (20 mg/mL) oral solution BREATH OR PAIN morphine concentrate 100 mg/5 mL 10 mg PO Q2H PRN COMFORT CARE 12/26/23 12/26/23 Unknown History (20 mg/mL) oral solution nitroglycerin 0.1 mg/hr 1 patch transdermal DAILY 12/26/23 12/26/23 Unknown History transdermal 24 hour patch pantoprazole 40 mg tablet,delayed 40 mg PO DAILY 12/26/23 12/26/23 Unknown History release Allergies Allergy/AdvReac Type Severity Reaction Status Date / Time vancomycin Allergy Unknown ADR-Itching Verified 12/07/23 08:36 ,Rash linezolid [From Zyvox] Allergy tendonitis Verified 12/07/23 08:36 ciprofloxacin [From Cipro] AdvReac Severe Tendonitis Verified 12/07/23 08:36 dextrose 5 % in water Allergy Unknown tendonitis Uncoded 12/07/23 08:36 Current Medications Generic Name Dose Route Start Last Admin Trade Name Freq PRN Reason Stop Dose Admin Albuterol/Ipratropium 3 ml 12/26/23 20:00 12/27/23 13:35 Ipratropium-Albuterol 3 Ml Neb INHALATION 3 ml Q6H.RESP [place] Administration Amiodarone HCl 200 mg 12/27/23 09:00 12/27/23 08:45 Amiodarone 200 Mg Tablet PO 200 mg DAILY [place] Administration Clopidogrel Bisulfate 75 mg 12/27/23 09:00 12/27/23 08:45 Clopidogrel 75 Mg Tablet PO 75 mg DAILY [place] Administration Hydrocortisone Sodium Succinate 50 mg 12/26/23 20:00 12/27/23 08:45 Hydrocortisone 100 Mg/2 Ml Sdv IVP 50 mg Q12H [place] Administration norepinephrine 4 mg in 250 mls @ 0 mls/hr 12/26/23 13:30 12/27/23 09:00 Levophed IV 0 mcg/min .Q0M [place] 0 mls/hr Titration Protocol Per Protocol Dextrose 125 mls @ 750 mls/hr 12/26/23 13:26 12/26/23 14:00 D10w IV Infused PRN PRN Infusion HYPOGLYCEMIA Heparin Sodium/Sodium Chloride 25,000 unit in 500 mls @ 0 mls/hr 12/26/23 16:30 12/27/23 09:28 Heparin Drip IV 13.06 unit/kg/hr .Q0M [place] 32 mls/hr Administration Protocol Per Protocol Levothyroxine Sodium 25 mcg 12/27/23 09:00 12/27/23 08:45 Levothyroxine 25 Mcg Tablet PO 25 mcg DAILY [place] Administration Midodrine 10 mg 12/26/23 21:00 12/27/23 08:45 Midodrine 5 Mg Tablet PO 10 mg TID [place] Administration Pantoprazole Sodium 40 mg 12/27/23 09:00 12/27/23 08:45 Pantoprazole 40 Mg Sdv IVP 40 mg DAILY [place] Administration Ropinirole HCl 0.25 mg 12/26/23 21:00 12/26/23 21:11 Ropinirole 0.25 Mg Tablet PO 0.25 mg BEDTIME [place] Administration PFSH Acute PFSH: Medical History (Updated 12/27/23 @ 15:10 by Darrell Patel MD) End stage renal disease on dialysis Atrial fibrillation Type 2 diabetes mellitus CHF (congestive heart failure), NYHA class III Poor prognosis Hepatorenal syndrome Sarcopenia Cirrhosis singletary Hypotension, chronic Anemia Acute hypoxic respiratory failure Anemia requiring transfusions Aortic stenosis Noncompliance End-stage renal disease on hemodialysis Anasarca Uremia Chronic osteomyelitis 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, limited to breakdown of skin Chronic osteomyelitis of right foot Foot osteomyelitis, right Osteomyelitis Cellulitis Necrosis of surgical wound Foot osteomyelitis, left Hypovolemic shock Anemia of chronic disease Ulcer of sacral region, stage 1 Gas gangrene Acquired equinovarus deformity of left foot Pre-ulcerative calluses Xerosis of skin 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 Cellulitis Diabetes BMI 50.0-59.9, adult Diabetic foot ulcers Fracture, thoracic vertebra T7-T8 Osteomyelitis Non-pressure chronic ulcer of other part of right foot with necrosis of muscle Chronic venous insufficiency Chronic dysfunction of both eustachian tubes Lung nodule Hypoglycemia unawareness associated with type 2 diabetes mellitus Chronic ulcer of left foot with fat layer exposed Non-healing ulcer of right foot with fat layer exposed Vitamin D deficiency First degree heart block COPD (chronic obstructive pulmonary disease) Hypertension Urinary retention History of renal cell carcinoma Morbid obesity with BMI of 40.0-44.9, adult Cardiac arrest Anemia Pneumonia due to 2019-nCoV (~07/2020) Renal cell carcinoma History bilateral renal cell carcinoma 2007 then recurrence on the contralateral side 2011. No recurrence for long-term follow-up with some suspicion on CT scan April 2020. Chronic respiratory failure with hypoxia and hypercapnia Obesity hypoventilation syndrome Metabolic alkalosis Accelerated hypertension Restrictive lung disease Obstructive sleep apnea non compliant with home bipap/cpap Fracture of fourth metatarsal bone of left foot Type 2 diabetes mellitus with diabetic polyneuropathy PVD (peripheral vascular disease) Fracture of fifth metatarsal bone of left foot Neuropathy Surgical History Status post below-knee amputation of left lower extremity History of left below knee amputation History of cataract surgery H/O wisdom tooth extraction Hx of lymph node excision H/O partial nephrectomy bilateral Family History Father , at age 65 Diabetes Cancer Metastatic prostate cancer to liver Mother , at age 72 Diabetes Grandfather Diabetes Cancer Other Anemia Hyperlipidemia Social History Smoking and tobacco/nicotine status: never used tobacco/nicotine Second hand smoke exposure: Yes Alcohol intake: current Alcohol intake frequency: holidays/special occasions only Substance/Drug Use: never Lives independently: Yes Household members: spouse Housing: House Marital status: service: No Current occupational status: retired Pets and animals: Yes Do you think of yourself as: Straight/Heterosexual Current gender identity: Male Vitals/I&O/Wt Last Vital Signs Temp 98.8 F 12/27/23 09:00 Pulse 76 12/27/23 13:36 Resp 22 H 12/27/23 13:36 BP 109/74 12/27/23 12:00 Pulse Ox 94 12/27/23 13:36 O2 Del Method Nasal Cannula 12/27/23 13:36 O2 Flow Rate 6 12/27/23 13:36 FiO2 50 12/27/23 06:00 12/26/23 12/27/23 12/27/23 22:59 06:59 14:59 Intake Total 78.75 / 586.70 702.500 / 1289.200 585.000 / 585.000 Balance 78.75 / 586.70 702.500 / 1289.200 585.000 / 585.000 Weight last 48 hrs Weight 124.239 kg Weight 124.239 kg Weight 122.924 kg Weight 122.47 kg Physical Exam Narrative: obese man on NC02, sitting up in bed, mild distress VS noted heent- nc/at, eomi neck no jvp lungs dull bases heart irreg irreg +YAS abdomen soft, + bs, NT, + distended, + catheter ext +LUE AVF w/ thrill and bruit legs LLE BKA rt leg min edema poor pulses seen and examined by telehealth visit w/ RN Data 12/27/23 03:15 12/27/23 03:15 Micro: Microbiology 12/26/23 15:55 Blood Culture - Preliminary Blood SPECIMEN COLLECTED 12/26/23 15:42 Blood Culture - Preliminary Blood SPECIMEN COLLECTED A&P Assessment and plan (1) End stage renal disease on dialysis: 53 yr old man 1. eSRD- HD TTS. will attempt dialysis today- remove fluids as tolerated 2. cardiogenic shock and rate controlled a fib 3. DM -glucose improved 4. anemia- check iron studies, give epo 5. thrombocytopenia- likely from cirrhosis 6. hypercapneic resp acidosis- BiPAP as needed 7. check tsh 8. check pth, vit d seen and examined w/ rN- telehealth visit informed consent for telehealth obtained from pt Plan see above- ESRD, CHF, cirrhosis Consult Attestations Medical Necessity Statement: ESRD, hypotension, hypercapneia, anemia, hypoglycemia Time Spent in Patient Care: Greater than 35 minutes Coding Level of Care Code Acute Code for Chg Fwd Diagnoses End stage renal disease on dialysis N18.6; Z99.2
[2023-12-27 17:44] LABS: Glucose Point of Care 207 mg/dL (70-110)
--- NOTE | 2023-12-27 18:44 | P.CONIM_ITS ---
Providers/Reason For Consult 2 Consulting Physician/Specialty*: Erik Arguelles MD/ Cardiology Reason for Consult*: Troponin elevation Requesting Physician: Dr Bonner Attending Physician: Edil Bonner MD Primary Care Provider: Sulma Wetzel MD History of Present Illness History of Present Illness Akil Velasco is a 53 year old male with past medical history of CAD with multiple stents, diabetes, end-stage renal disease, liver disease, atrial fibrillation who was brought to hospital with altered mental status and was found to have hypoglycemia, hypotension. Cardiology was consulted as his troponins were significantly elevated at 698 at baseline and trended up to over 1300 at 6 hours. EKG shows sinus rhythm with right bundle branch block and nonspecific ST-T wave changes. At time of my evaluation patient denies any chest pain. Limited echo has been done that shows LV systolic function is decreased compared to before and is 40 to 45%. Patient has moderate to severe aortic stenosis as well and on recent heart cath mean gradient across aortic valve is 35 mmHg. Patient had recent multiple cardiac procedures performed with PCI's. After last procedure, he had a GI bleed and was transferred to tertiary care hospital for management. Hemoglobin is still low. Review of Systems 2 General: Reports: 10 or more systems reviewed and unremarkable except in HPI and below Card: Denies: chest pain or palpitations Medications/Allergies Home Medications Medication Instructions Recorded Confirmed Last Taken Type Wheel Chair #1 ea 08/18/21 12/26/23 11/18/23 Rx ropinirole 0.25 mg tablet 0.25 mg PO BEDTIME Restless Leg(S) 08/22/21 12/26/23 11/22/23 History ondansetron HCl 4 mg tablet 4 mg PO Q4H PRN Nausea 04/11/22 12/26/23 11/22/23 History Compression Stockings #1 ea 04/12/22 12/26/23 11/18/23 Rx [place] boot modification #1 ea 07/17/22 12/26/23 11/18/23 Rx oxycodone 5 mg tablet 5 mg PO Q4H PRN Pain 08/16/22 12/26/23 11/22/23 History B-complex with vitamin C 1 cap PO DAILY 10/16/22 12/26/23 12/11/23 History albuterol sulfate 90 mcg/actuation 2 puff inhalation Q6H PRN 10/16/22 12/26/23 11/01/23 History aerosol inhaler Shortness Of Breath diphenhydramine HCl 25 mg tablet 25 mg PO DAILY PRN itching 10/16/22 12/26/23 11/09/23 History (Benadryl Allergy) polyethylene glycol 3350 17 17 g PO BID PRN Constipation 10/16/22 12/26/23 11/01/23 History gram/dose oral powder (Miralax) Prevalon boot #1 ea 11/21/22 12/26/23 11/18/23 Rx diabetic shoes with 3 heat molded #1 ea 12/15/22 12/26/23 11/18/23 Rx insoles gabapentin 300 mg capsule 300 mg PO Q8H PRN NERVE PAIN 01/02/23 12/26/23 11/22/23 History vit B,C-folic ac 800 mcg-zinc 12.5 1 tab PO DAILY 05/07/23 12/26/23 12/11/23 History mg-selen-D3 2,000 unit-vit E tablet (RenaPlex-D) clopidogrel 75 mg tablet 75 mg PO DAILY 07/02/23 12/26/23 12/11/23 History arginine 7 gram-glutam 7 1 packet PO BID 10/16/23 12/26/23 12/11/23 History gram-CaHMB 1.5 wqqf-ixlak-sy-min oral pwd pkt (Mehdi (with collagen)) sodium zirconium cyclosilicate 10 See Rx Instructions .Route .COMPLEX 10/16/23 12/26/23 12/04/23 History gram oral powder packet (Lokelma) trazodone 50 mg tablet 50 mg PO BEDTIME 10/16/23 12/26/23 12/10/23 History nitroglycerin 0.4 mg sublingual 0.4 mg buccal DAILY PRN Chest Pain 11/05/23 12/26/23 11/22/23 History tablet amiodarone 200 mg tablet (Pacerone) 200 mg PO DAILY 11/19/23 12/26/23 12/11/23 History midodrine 5 mg tablet 10 mg PO TID 12/11/23 12/26/23 Unknown History fludrocortisone 0.1 mg tablet 0.2 mg (2 x 0.1 mg) PO DAILY #60 05/17/24 05/29/24 Unknown Rx tabs apixaban 5 mg tablet (Eliquis) 5 mg PO BID 12/26/23 12/26/23 Unknown History carboxymethyl 0.5 %-glycerin 1 1 drp ophthalmic (eye) Q4H PRN Dry 12/26/23 12/26/23 Unknown History %-polysorb 80 0.5 %-PF eye Eyes dropperette levothyroxine 25 mcg tablet 25 mcg PO DAILY 12/26/23 12/26/23 Unknown History lorazepam 2 mg/mL oral concentrate 0.25 - 0.5 mg PO Q6H PRN COMFORT 12/26/23 12/26/23 Unknown History CARES miconazole nitrate 2 % topical 1 applic topical BID 12/26/23 12/26/23 Unknown History cream morphine concentrate 100 mg/5 mL 5 mg PO Q2H PRN SHORTNESS OF 12/26/23 12/26/23 Unknown History (20 mg/mL) oral solution BREATH OR PAIN morphine concentrate 100 mg/5 mL 10 mg PO Q2H PRN COMFORT CARE 12/26/23 12/26/23 Unknown History (20 mg/mL) oral solution nitroglycerin 0.1 mg/hr 1 patch transdermal DAILY 12/26/23 12/26/23 Unknown History transdermal 24 hour patch pantoprazole 40 mg tablet,delayed 40 mg PO DAILY 12/26/23 12/26/23 Unknown History release Allergies Allergy/AdvReac Type Severity Reaction Status Date / Time vancomycin Allergy Unknown ADR-Itching Verified 12/07/23 08:36 ,Rash linezolid [From Zyvox] Allergy tendonitis Verified 12/07/23 08:36 ciprofloxacin [From Cipro] AdvReac Severe Tendonitis Verified 12/07/23 08:36 dextrose 5 % in water Allergy Unknown tendonitis Uncoded 12/07/23 08:36 Current Medications Generic Name Dose Route Start Last Admin Trade Name Freq PRN Reason Stop Dose Admin Albuterol/Ipratropium 3 ml 12/26/23 20:00 12/27/23 13:35 Ipratropium-Albuterol 3 Ml Neb INHALATION 3 ml Q6H.RESP [place] Administration Amiodarone HCl 200 mg 12/27/23 09:00 12/27/23 08:45 Amiodarone 200 Mg Tablet PO 200 mg DAILY [place] Administration Clopidogrel Bisulfate 75 mg 12/27/23 09:00 12/27/23 08:45 Clopidogrel 75 Mg Tablet PO 75 mg DAILY [place] Administration Hydrocortisone Sodium Succinate 50 mg 12/26/23 20:00 12/27/23 08:45 Hydrocortisone 100 Mg/2 Ml Sdv IVP 50 mg Q12H [place] Administration norepinephrine 4 mg in 250 mls @ 0 mls/hr 12/26/23 13:30 12/27/23 09:00 Levophed IV 0 mcg/min .Q0M [place] 0 mls/hr Titration Protocol Per Protocol Dextrose 125 mls @ 750 mls/hr 12/26/23 13:26 12/26/23 14:00 D10w IV Infused PRN PRN Infusion HYPOGLYCEMIA Heparin Sodium/Sodium Chloride 25,000 unit in 500 mls @ 0 mls/hr 12/26/23 16:30 12/27/23 09:28 Heparin Drip IV 13.06 unit/kg/hr .Q0M [place] 32 mls/hr Administration Protocol Per Protocol Levothyroxine Sodium 25 mcg 12/27/23 09:00 12/27/23 08:45 Levothyroxine 25 Mcg Tablet PO 25 mcg DAILY [place] Administration Midodrine 10 mg 12/26/23 21:00 12/27/23 15:09 Midodrine 5 Mg Tablet PO 10 mg TID [place] Administration Pantoprazole Sodium 40 mg 12/27/23 09:00 12/27/23 08:45 Pantoprazole 40 Mg Sdv IVP 40 mg DAILY [place] Administration Ropinirole HCl 0.25 mg 12/26/23 21:00 12/26/23 21:11 Ropinirole 0.25 Mg Tablet PO 0.25 mg BEDTIME [place] Administration PFSH Acute 2 PFSH: Medical History End stage renal disease on dialysis Atrial fibrillation Type 2 diabetes mellitus CHF (congestive heart failure), NYHA class III Poor prognosis Hepatorenal syndrome Sarcopenia Cirrhosis singletary Hypotension, chronic Anemia Acute hypoxic respiratory failure Anemia requiring transfusions Aortic stenosis Noncompliance End-stage renal disease on hemodialysis Anasarca Uremia Chronic osteomyelitis 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, limited to breakdown of skin Chronic osteomyelitis of right foot Foot osteomyelitis, right Osteomyelitis Cellulitis Necrosis of surgical wound Foot osteomyelitis, left Hypovolemic shock Anemia of chronic disease Ulcer of sacral region, stage 1 Gas gangrene Acquired equinovarus deformity of left foot Pre-ulcerative calluses Xerosis of skin 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 Cellulitis Diabetes BMI 50.0-59.9, adult Diabetic foot ulcers Fracture, thoracic vertebra T7-T8 Osteomyelitis Non-pressure chronic ulcer of other part of right foot with necrosis of muscle Chronic venous insufficiency Chronic dysfunction of both eustachian tubes Lung nodule Hypoglycemia unawareness associated with type 2 diabetes mellitus Chronic ulcer of left foot with fat layer exposed Non-healing ulcer of right foot with fat layer exposed Vitamin D deficiency First degree heart block COPD (chronic obstructive pulmonary disease) Hypertension Urinary retention History of renal cell carcinoma Morbid obesity with BMI of 40.0-44.9, adult Cardiac arrest Anemia Pneumonia due to 2019-nCoV (~07/2020) Renal cell carcinoma History bilateral renal cell carcinoma 2007 then recurrence on the contralateral side 2011. No recurrence for long-term follow-up with some suspicion on CT scan April 2020. Chronic respiratory failure with hypoxia and hypercapnia Obesity hypoventilation syndrome Metabolic alkalosis Accelerated hypertension Restrictive lung disease Obstructive sleep apnea non compliant with home bipap/cpap Fracture of fourth metatarsal bone of left foot Type 2 diabetes mellitus with diabetic polyneuropathy PVD (peripheral vascular disease) Fracture of fifth metatarsal bone of left foot Neuropathy Surgical History Status post below-knee amputation of left lower extremity History of left below knee amputation History of cataract surgery H/O wisdom tooth extraction Hx of lymph node excision H/O partial nephrectomy bilateral Family History Father , at age 65 Diabetes Cancer Metastatic prostate cancer to liver Mother , at age 72 Diabetes Grandfather Diabetes Cancer Other Anemia Hyperlipidemia Social History Smoking and tobacco/nicotine status: never used tobacco/nicotine Second hand smoke exposure: Yes Alcohol intake: current Alcohol intake frequency: holidays/special occasions only Substance/Drug Use: never Lives independently: Yes Household members: spouse Housing: House Marital status: service: No Current occupational status: retired Pets and animals: Yes Do you think of yourself as: Straight/Heterosexual Current gender identity: Male Vitals/I&O/Wt Last Vital Signs Temp 98.8 F 12/27/23 09:00 Pulse 82 12/27/23 18:00 Resp 10 L 12/27/23 18:00 BP 108/77 12/27/23 18:00 Pulse Ox 92 12/27/23 17:30 O2 Del Method Nasal Cannula 12/27/23 13:36 O2 Flow Rate 6 12/27/23 13:36 FiO2 50 12/27/23 06:00 12/27/23 12/27/23 12/27/23 06:59 14:59 22:59 Intake Total 702.500 / 1289.200 585.000 / 585.000 Balance 702.500 / 1289.200 585.000 / 585.000 Weight last 48 hrs Weight 273 lb 14.4 oz Weight 273 lb 14.4 oz Weight 271 lb Weight 270 lb Physical Exam 2 Narrative: GENERAL: Patient is alert, awake NECK: No jugular vein distension. [] HEENT: No cyanosis. No icterus. No pallor. [] HEART: Regular S1 and S2. No murmur, rub or gallop. [] LUNGS: Clear to auscultate bilaterally. [] CENTRAL NERVOUS SYSTEM: Grossly nonfocal. [] EXTREMITIES: Lower extremities with 1+ edema bilaterally. Data 12/28/23 03:05 12/28/23 04:22 Micro: Microbiology 12/26/23 15:55 Blood Culture - Preliminary Blood NEGATIVE TO DATE 12/26/23 15:42 Blood Culture - Preliminary Blood NEGATIVE TO DATE A&P Assessment and plan (1) Elevated troponin: (2) CHF (congestive heart failure), NYHA class III: (3) Shock: (4) Atherosclerotic heart disease of [place] coronary artery with other forms of angina pectoris: (5) Atrial fibrillation: Qualifiers: Atrial fibrillation type: unspecified Qualified Code(s): I48.91 - Unspecified atrial fibrillation (6) Type 2 diabetes mellitus: Qualifiers: Diabetes mellitus computer terminal operator insulin use: without senior care use Diabetes mellitus complication status: with kidney complications Diabetes mellitus complication detail: with chronic kidney disease Chronic kidney disease stage: on chronic dialysis Qualified Code(s): E11.22 - Type 2 diabetes mellitus with diabetic chronic kidney disease; N18.6 - End stage renal disease; Z99.2 - Dependence on renal dialysis (7) End stage renal disease on dialysis: Plan Patient has multiple medical problems. In the past discussion of hospice has also been done. Now patient has presented with altered mental status. Troponin did increase significantly from baseline of 698 to over 1300. Echo shows mildly reduced LV systolic function. Patient has moderate to severe aortic stenosis as well. I had a detailed discussion regarding all possible options including invasive procedures virtually with his all other medical problems will be high risk. Patient also has anemia and had recent GI bleed. Shared decision has been made to continue with medical therapy. If patient's hemoglobin tolerates, can continue 48 hours of IV anticoagulation. He is chest pain-free at this time. Continue plavix. Thank you for involving us with care of this patient. We will continue to follow. Please call with questions. Consult Attestations 2 Medical Necessity Statement: Care expected to cross 2 midnights. Coding Level of Care Code Acute Code for [facility] Diagnoses Elevated troponin R79.89 Chronic diastolic congestive heart failure, NYHA class 3 I50.9 Shock R57.9 Atherosclerotic heart disease of [place] coronary artery with other forms of angina pectoris I25.118 Atrial fibrillation, unspecified type I48.91 Atrial fibrillation type: unspecified Type 2 diabetes mellitus with chronic kidney disease on chronic dialysis, without long-term current use of insulin E11.22; N18.6; Z99.2 Diabetes mellitus computer terminal operator insulin use: without computer terminal operator use Diabetes mellitus complication status: with kidney complications Diabetes mellitus complication detail: with chronic kidney disease Chronic kidney disease stage: on chronic dialysis End stage renal disease on dialysis N18.6; Z99.2
[2023-12-27 18:50] LABS: Partial Thromboplastin Time 44.6 SECONDS (23.9-36.7)
--- NOTE | 2023-12-27 19:31 | PC.NURSE ---
Levophed turned back on at 1930 for dialysis. Running at 2 mcg/min. Monitoring pt and will adjust as needed.
--- NOTE | 2023-12-27 19:38 | PC.NURSE ---
Midodrine given early per Dr. Bonner orders to imprive blood pressure during dialysis. Also gave orders to give Solu-cortel early.
[2023-12-27 21:53] LABS: Glucose Point of Care 144 mg/dL (70-110)
[2023-12-27] MEDS: ropinirole 0.25 mg Tablet PO (21:53)
[2023-12-27] MEDS: heparin, porcine 1,000 unit/mL INJ 10 mL 1000 UNIT IV (23:24)
[2023-12-28] VITALS (56 sets, daily range): BP systolic 82–141; BP diastolic 17–88; PULSE 68–82; RESP 10–24; TEMP 36.3–36.9; O2SAT 90–99; BMI 36.5
[2023-12-28 00:06] LABS: Hepatitis B Surface Antigen Non-Reactive (Nonreactive); Hepatitis C Virus Antibody Non-Reactive (Nonreactive)
[2023-12-28] MEDS: ondansetron 2 mg/ML SDV 2 mL 4 MG IVP ×2 (01:15→19:08)
[2023-12-28] MEDS: ipratropium-albuterol 3 mL Neb INHALATION ×3 (02:01→20:04)
[2023-12-28] MEDS: oxyCODONE 5 mg IR Tab/Cap PO ×3 (03:11→19:08)
[2023-12-28 03:52] LABS: Eosinophils % 0.1 %; Hematocrit 26.2 % (37-53); Lymphocytes # 0.5 10^3/uL (0.8-4.8); Lymphocytes % 6.3 %; Mean Corpuscular Hemoglobin 30.2 pg (27-33); Mean Platelet Volume 10.5 fL (7.4-10.4); Monocytes # 0.5 10^3/uL (0.2-0.9); Monocytes % 6.8 %; Neutrophils % 86.3 %; Nucleated Red Blood Cells % 0.4 %; Platelet Count 113 10^3/cmm (157-399); Red Blood Count 2.52 10^6/uL (3.85-5.65); Red Cell Distribution Width 21.9 % (12.1-15.1); White Blood Count 7.31 10^3/uL (3.29-11.43)
[2023-12-28] MEDS: heparin drip 25,000 UNIT/500 ML PREMIX 32 UNIT IV (04:10)
[2023-12-28 04:12] LABS: Partial Thromboplastin Time 46.6 SECONDS (23.9-36.7)
[2023-12-28 05:55] LABS: Calcium 6.7 mg/dL (8.5-10.5); Parathyroid Hormone 762.9 pg/mL (15-65)
[2023-12-28 06:05] LABS: 25 Hydroxy Vitamin D 7 ng/mL (30-100); Alanine Aminotransferase 10 U/L (0-41); Albumin Level 3.2 g/dL (3.5-5.2); Alkaline Phosphatase 88 U/L (40-130); Anion Gap 19.6 (5-19); Aspartate Amino Transferase 25 U/L (0-40); Blood Urea Nitrogen 49 mg/dL (6-20); Calcium 6.9 mg/dL (8.5-10.5); Carbon Dioxide 27 mmol/L (22-29); Chloride 93 mmol/L (98-107); Globulin 4.5 g/dL (1.3-4.6); Glomerular Filtration Rate 13.8 mL/min (90-130); Glucose 144 mg/dL (65-115); Iron 55 ug/dL (59-158); Magnesium 1.8 mg/dL (1.7-2.3); Osmolality Calculated 298 mOsm/kg (285-295); Percent Saturation 34.5 % (20-50); Potassium 3.6 mmol/L (3.5-5.1); Sodium 136 mmol/L (136-145); Thyroid Stimulating Hormone 3.72 uIU/mL (0.27-4.20); Total Bilirubin 0.4 mg/dL (0.15-1.2); Total Iron Binding Capacity 159 mcg/dl; Total Protein 7.7 g/dL (6.6-8.7); Unsaturated Iron Binding 104 ug/dL (112-347)
[2023-12-28 06:19] LABS: Ferritin 1453 ng/mL (30-400)
[2023-12-28] MEDS: b-complex-vitamin c Tablet 1 EACH PO (08:11)
[2023-12-28] MEDS: fludrocortisone 0.1 mg Tablet 0.100000000000000006 MG PO ×2 (08:11→12:48)
[2023-12-28] MEDS: hydrocortisone 100 mg/2 mL SDV 50 MG IVP (08:11)
[2023-12-28] MEDS: amiodarone 200 mg Tablet PO (08:11)
[2023-12-28] MEDS: levothyroxine 25 mcg Tablet PO (08:11)
[2023-12-28] MEDS: midodrine 5 mg TABLET 10 MG PO ×3 (08:11→21:31)
[2023-12-28] MEDS: clopidogrel 75 mg Tablet PO (08:11)
[2023-12-28] MEDS: pantoprazole 40 mg SDV IVP (08:12)
[2023-12-28 08:23] LABS: Glucose Point of Care 132 mg/dL (70-110)
--- NOTE | 2023-12-28 09:43 | P.PN_ITS ---
Subjective 2 Subjective: c/o edema, abd distention, diarrhea, SOB, weak. no resp distress. rest of ROS is negative Medications: Reviewed: Yes Medication Review Details: Current Medications Acetaminophen (Acetaminophen 325 Mg Tablet) 650 mg PO Q6H PRN PRN Reason: MILD PAIN Albuterol/Ipratropium (Ipratropium-Albuterol 3 Ml Neb) 3 ml INHALATION Q6H.RESP [place] Last Admin: 12/28/23 08:10 Dose: 3 ml Amiodarone HCl (Amiodarone 200 Mg Tablet) 200 mg PO DAILY [place] Last Admin: 12/28/23 08:11 Dose: 200 mg Bisacodyl (Bisacodyl 5 Mg Tablet) 10 mg PO DAILY PRN; Protocol PRN Reason: Constipation (see protocol) Clopidogrel Bisulfate (Clopidogrel 75 Mg Tablet) 75 mg PO DAILY [facility] Last Admin: 12/28/23 08:11 Dose: 75 mg Epoetin Zachary (Epoetin Zachary 1000 Unit/0.05 Ml (Esrd)) 10,000 unit IVP DIALYSIS [facility] Last Admin: 12/28/23 01:51 Dose: Not Given Fludrocortisone Acetate (Fludrocortisone 0.1 Mg Tablet) 0.1 mg PO DAILY [facility] Last Admin: 12/28/23 08:11 Dose: 0.1 mg Gabapentin (Gabapentin 300 Mg Capsule) 300 mg PO Q8H PRN PRN Reason: NERVE PAIN Heparin Sodium (Porcine) (Heparin 5,000 Unit/Ml Inj 1 Ml) 0 unit IV PRN PRN; Protocol PRN Reason: Heparin weight-base protocol Hydrocortisone Sodium Succinate (Hydrocortisone 100 Mg/2 Ml Sdv) 50 mg IVP Q12H [facility] Last Admin: 12/28/23 08:11 Dose: 50 mg norepinephrine (Levophed) 4 mg in 250 mls @ 0 mls/hr IV .Q0M [facility]; Protocol Last Titration: 12/28/23 00:00 Dose: 0 mcg/min, 0 mls/hr Dextrose (D10w) 125 mls @ 750 mls/hr IV PRN PRN PRN Reason: HYPOGLYCEMIA Last Infusion: 12/26/23 14:00 Dose: Infused Heparin Sodium/Sodium Chloride (Heparin Drip) 25,000 unit in 500 mls @ 0 mls/hr IV .Q0M [facility]; Protocol Last Titration: 12/28/23 04:19 Dose: 13.88 unit/kg/hr, 34 mls/hr Dextrose (D5w) 500 mls @ 0 mls/hr IV ONCE PRN; Protocol PRN Reason: Adult Acute Hypoglycemia Prot Dextrose (D10w) 125 mls @ 750 mls/hr IV PRN PRN; Protocol PRN Reason: Adult Acute Hypoglycemia Nursing Protocol Dextrose (D10w) 250 mls @ 1,000 mls/hr IV PRN PRN; Protocol PRN Reason: Adult Acute Hypoglycemia Nursing Protocol Albumin Human (Albumin) 12.5 gm in 50 mls @ 60 mls/hr IV PRN PRN PRN Reason: Hypotension and/or symptomatic Lactulose (Lactulose Oral Liq 20 Gm/30 Ml Udc) 10 gm PO DAILY PRN; Protocol PRN Reason: Constipation (see protocol) Levothyroxine Sodium (Levothyroxine 25 Mcg Tablet) 25 mcg PO DAILY [facility] Last Admin: 12/28/23 08:11 Dose: 25 mcg Magnesium Hydroxide (Magnesium Hydroxide 30 Ml Udc) 30 ml PO DAILY PRN; Protocol PRN Reason: Constipation (see protocol) Midodrine (Midodrine 5 Mg Tablet) 10 mg PO TID [facility] Last Admin: 12/28/23 08:11 Dose: 10 mg Morphine Sulfate (Morphine 4 Mg/Ml Sdv 1 Ml) 2 mg IVP Q4H PRN PRN Reason: SEVERE PAIN Multivitamins (Q-Sxsidqy-Nxuzdvv C Tablet) 1 each PO DAILY [facility] Last Admin: 12/28/23 08:11 Dose: 1 each Ondansetron HCl (Ondansetron 2 Mg/Ml Sdv 2 Ml) 4 mg IVP Q6H PRN PRN Reason: NAUSEA AND VOMITING Last Admin: 12/28/23 01:15 Dose: 4 mg Oxycodone HCl (Oxycodone 5 Mg Ir Tab/Cap) 5 mg PO Q4H PRN PRN Reason: Pain Last Admin: 12/28/23 08:12 Dose: 5 mg Pantoprazole Sodium (Pantoprazole 40 Mg Sdv) 40 mg IVP DAILY [facility] Last Admin: 12/28/23 08:12 Dose: 40 mg Ropinirole HCl (Ropinirole 0.25 Mg Tablet) 0.25 mg PO BEDTIME [facility] Last Admin: 12/27/23 21:53 Dose: 0.25 mg Vitals/I&O/Wt Last Vital Signs Temp 97.7 F 12/28/23 09:26 Pulse 71 12/28/23 08:30 Resp 14 12/28/23 08:30 BP 84/59 12/28/23 08:30 Pulse Ox 95 12/28/23 08:30 O2 Del Method Nasal Cannula 12/28/23 08:10 O2 Flow Rate 5 12/28/23 08:10 FiO2 50 12/28/23 06:00 12/27/23 12/28/23 12/28/23 22:59 06:59 14:59 Intake Total 240 / 081.001 4852.55 / 1863.550 200 / 200 Output Total 2996 / 2996 Balance 240 / 825.000 -1957.45 / -1132.450 200 / 200 Weight last 48 hrs Weight 122.243 kg Weight 122.243 kg Weight 124.5 kg Weight 124.239 kg Weight 124.239 kg Weight 122.924 kg Weight 122.47 kg Physical Exam 2 Narrative: obese man on NC02, sitting up in bed, no resp distress VS noted - BP low heent- nc/at, eomi neck no jvp lungs dull bases heart irreg irreg +YAS abdomen soft, + bs, NT, + distended, + catheter ext +LUE AVF w/ thrill and bruit legs LLE BKA, + leg edema poor pulses neuro- a,a, o x 3 seen and examined by telehealth visit w/ RN Data 12/28/23 03:05 12/28/23 04:22 Micro: Microbiology 12/26/23 15:55 Blood Culture - Preliminary Blood NEGATIVE TO DATE 12/26/23 15:42 Blood Culture - Preliminary Blood NEGATIVE TO DATE A&P Assessment and plan (1) End stage renal disease on dialysis: 53 yr old man 1. eSRD- HD TTS. s/p HD yesterday. repeat dialysis tomorrow 2. cardiogenic shock and rate controlled a fib 3. ascites- drain abdomen as per medicine- consider giving albumin w/ fluid removal 4. DM -glucose improved 5. anemia- high ferritin, continue epo. consider giving 1 unit prbc tx tomorrow w/ dialysis if hgb drops more 6. thrombocytopenia- likely from cirrhosis 7. hypercapneic resp acidosis- BiPAP as needed 8.replace vit d and zemplar w/ dialysis. check phos 9. normal tsh seen and examined w/ rN- telehealth visit informed consent for telehealth obtained from pt Plan see above- ESRD, CHF, cirrhosis Attestations 2 Medical Necessity Statement*: hypotensive, ESRD, volume overload, hypoxemia Time Spent in Patient Care: Greater than 35 minutes Coding Level of Care Code Acute Code for [facility] Diagnoses End stage renal disease on dialysis N18.6; Z99.2
--- NOTE | 2023-12-28 09:50 | PC.SOCIAL ---
IMM Update pg 2 of IMM updated and reviewed w/ patient. Copy provided and copy dated, initialed and placed in chart.
[2023-12-28] MEDS: ergocalciferol (vitamin D2) 50,000 Unit Capsule 50000 UNIT PO (10:17)
[2023-12-28 10:53] LABS: Partial Thromboplastin Time 61.6 SECONDS (23.9-36.7)
[2023-12-28 11:31] LABS: Glucose Point of Care 176 mg/dL (70-110)
--- NOTE | 2023-12-28 12:27 | PM.PN ---
Subjective Subjective: Patient is feeling well. no chest pain. Vitals/I&O/Wt Last Vital Signs Temp 97.7 F 12/28/23 09:26 Pulse 72 12/28/23 10:00 Resp 15 12/28/23 10:00 BP 112/25 12/28/23 10:00 Pulse Ox 95 12/28/23 09:30 O2 Del Method Nasal Cannula 12/28/23 08:10 O2 Flow Rate 5 12/28/23 08:10 FiO2 50 12/28/23 06:00 12/27/23 12/28/23 12/28/23 22:59 06:59 14:59 Intake Total 240 / 521.436 1917.55 / 1863.550 427.233 / 427.233 Output Total 2996 / 2996 Balance 240 / 825.000 -1957.45 / -1132.450 427.233 / 427.233 Weight last 48 hrs Weight 269 lb 8 oz Weight 269 lb 8 oz Weight 274 lb 7.608 oz Weight 273 lb 14.4 oz Weight 273 lb 14.4 oz Weight 271 lb Weight 270 lb Physical Exam Narrative: GENERAL: Patient is alert, awake NECK: No jugular vein distension. [] HEENT: No cyanosis. No icterus. No pallor. [] HEART: Regular S1 and S2. Grade 3/6 systolic murmur LUNGS: Clear to auscultate bilaterally. [] CENTRAL NERVOUS SYSTEM: Grossly nonfocal. [] Data 12/28/23 03:05 12/28/23 04:22 Micro: Microbiology 12/26/23 15:55 Blood Culture - Preliminary Blood NEGATIVE TO DATE 12/26/23 15:42 Blood Culture - Preliminary Blood NEGATIVE TO DATE A&P Assessment and plan (1) Elevated troponin: (2) CHF (congestive heart failure), NYHA class III: (3) Shock: (4) Atherosclerotic heart disease of [place] coronary artery with other forms of angina pectoris: (5) Atrial fibrillation: Qualifiers: Atrial fibrillation type: unspecified Qualified Code(s): I48.91 - Unspecified atrial fibrillation (6) Type 2 diabetes mellitus: Qualifiers: Diabetes mellitus buttermaker helper insulin use: without buttermaker helper use Diabetes mellitus complication status: with kidney complications Diabetes mellitus complication detail: with chronic kidney disease Chronic kidney disease stage: on chronic dialysis Qualified Code(s): E11.22 - Type 2 diabetes mellitus with diabetic chronic kidney disease; N18.6 - End stage renal disease; Z99.2 - Dependence on renal dialysis (7) End stage renal disease on dialysis: Plan Patient remains chest pain-free. Continue anticoagulation IV for 48 hours. Hemoglobin is low. Monitor H&H. Continue Plavix given recent stents. LV systolic function is lower compared to before. Shared decision made to continue with medical therapy. Thank you for involving us with care of this patient. Please call with questions. Attestations Medical Necessity Statement*: Care expected to cross 2 midnights. Coding Level of Care Code Acute Code for g Fwd Diagnoses Elevated troponin R79.89 Chronic diastolic congestive heart failure, NYHA class 3 I50.9 Shock R57.9 Atherosclerotic heart disease of [place] coronary artery with other forms of angina pectoris I25.118 Atrial fibrillation, unspecified type I48.91 Atrial fibrillation type: unspecified Type 2 diabetes mellitus with chronic kidney disease on chronic dialysis, without long-term current use of insulin E11.22; N18.6; Z99.2 Diabetes mellitus buttermaker helper insulin use: without buttermaker helper use Diabetes mellitus complication status: with kidney complications Diabetes mellitus complication detail: with chronic kidney disease Chronic kidney disease stage: on chronic dialysis End stage renal disease on dialysis N18.6; Z99.2
[2023-12-28] MEDS: epoetin alfa 1000 Unit/0.05 mL (ESRD) 10000 UNIT IVP (15:22)
--- NOTE | 2023-12-28 15:56 | P.PN_ITS ---
Subjective 2 Subjective: No acute events overnight. Patient laying in bed talking to a family member at bedside. Awake and alert. Denies any nausea vomiting, headache. States he is been having multiple episodes of diarrhea since last night. Underwent dialysis yesterday. During dialysis required to off Levophed. Levophed turned off around midnight. Vitals/I&O/Wt Last Vital Signs Temp 97.7 F 12/28/23 09:26 Pulse 76 12/28/23 14:30 Resp 17 12/28/23 14:30 BP 110/66 12/28/23 14:30 Pulse Ox 94 12/28/23 14:30 O2 Del Method Nasal Cannula 12/28/23 14:00 O2 Flow Rate 2 12/28/23 14:00 FiO2 50 12/28/23 06:00 12/28/23 12/28/23 12/28/23 06:59 14:59 22:59 Intake Total 1038.55 / 1863.550 427.233 / 427.233 Output Total 2996 / 2996 Balance -1957.45 / -1132.450 427.233 / 427.233 Weight last 48 hrs Weight 122.243 kg Weight 122.243 kg Weight 124.5 kg Weight 124.239 kg Weight 124.239 kg Weight 122.924 kg Physical Exam 2 Narrative: General: AOx3, no acute distress, on nasal cannula, chronically sick appearing HEENT: PERRLA, pupils bilaterally equal and reactive Chest: Bronchial breath sounds all over lung ray with occasional rhonchi, decreased air entry all over more so in bilateral lower zone CVS: S1-S2 regular, no murmurs, no tachycardia, no gallops, no rubs Abdomen: Soft, nontender, no organomegaly, bowel sounds present Neuro: Moving all limbs, no focal deficit Data 12/28/23 03:05 12/28/23 04:22 Micro: Microbiology 12/26/23 15:55 Blood Culture - Preliminary Blood NEGATIVE TO DATE 12/26/23 15:42 Blood Culture - Preliminary Blood NEGATIVE TO DATE A&P Assessment and plan (1) Shock: Most likely cardiogenic in nature. Patient does not seem to have any sign of infection. Has remained afebrile without leukocytosis. Denies any diarrhea, difficulty in breathing, cough, dysuria. Keep mean arterial pressure over 65. Levophed currently weaned off. Continue with home dose of midodrine. Already received hydrocortisone 50 mg one-time today. Started on home dose of fludrocortisone 0.2 daily. Patient will most likely get dialysis today. Will have to monitor hemodynamics accordingly. Underwent 1 L of paracentesis yesterday. Depending of hemodynamics will plan to remove further fluid today. Will plan to send fluid studies. Send stool studies. (2) Acute non-ST elevation myocardial infarction (NSTEMI): Last cardiac angiogram from earlier this year showed critical ostial left circumflex in-stent restenosis and severe stenosis of OM1 treated with balloon angioplasty of the ostial left circumflex and DAVE x 1 to the OM1. Appreciate cardiology recommendations. Echocardiogram done showed EF of 40 to 45% with mild global LV hypokinesia. After discussion with patient and family it was decided to continue with medical therapy. Continue with heparin drip. Will plan to continue heparin drip for over 72 hours. Continue with home dose of Plavix. (3) Acute respiratory failure: Most likely in setting of hypervolemia along with poor mentation. Keep oxygen saturation over 90%. Patient back to home oxygen supplementation of 2 L. Wean oxygen supplementation accordingly. Pulmicort twice daily, ipratropium, Xopenex every 6 hours. (4) End stage kidney disease: On maintenance hemodialysis. Continue with dialysis as per home schedule. Plan for repeat dialysis in a.m. tomorrow. Appreciate nephrology recommendations. (5) CHF (congestive heart failure), NYHA class III: Last echocardiogram results appreciated. History of right-sided heart failure along with possible aortic stenosis. Continue to monitor. Plan for dialysis today. (6) Goals of care, counseling/discussion: On admission as patient was altered. Per discussions were done with patient's DPOA including his and sister at bedside. At that time family had wished for DNR/DNI, no further dialysis, revascularization for ACS, no escalation of care. Today patient is awake and alert. Further goals of care discussions were done in detail with the patient. We discussed about quality of life versus quantity of life. We discussed unfortunately even with maximum medical therapy patient continues to have recurrent hospitalization and is getting weaker and sicker with his hospitalization secondary to his history of end-stage renal disease, significant liver cirrhosis, congestive heart failure in setting of CAD, COPD. Patient verbalizes understanding. He states for now quality of life is less important to him than quantity of life and he wants to live for as long as possible. Going further once his sickle quality of life would be more important but for now he would like to live for as long as possible. He wants to pursue revascularization if needed, continue hemodialysis. He is okay with short cycle of chest compression if needed and mechanical ventilation. CODE STATUS changed to full code. Cardiology and nephrology have been consulted for non-ST elevation OK and end- stage renal disease requiring hemodialysis. (7) Atrial fibrillation: Currently rate controlled. Takes amiodarone 200 mg daily at home. Possibly also takes Eliquis 5 mg twice daily. When last discharged patient was not on Eliquis but currently seems to be on Eliquis as per the medical reconciliation from the [facility]. Will confirm. Heparin as above. If hemoglobin remained stable on heparin we will plan to discharge on Eliquis. clinical research monitor. Qualifiers: Atrial fibrillation type: unspecified Qualified Code(s): I48.91 - Unspecified atrial fibrillation (8) Altered mental status: Most likely in setting of shock, hypoglycemia, hypoxia and hypercapnia, metabolic acidosis. Hepatic encephalopathy ruled out with normal ammonia levels. Mentation back to baseline. Restart diet. (9) Type 2 diabetes mellitus: Hypoglycemia protocol. Appreciate recent A1c. Qualifiers: Diabetes mellitus retirement insulin use: without supervisor intermediates use Diabetes mellitus complication status: with kidney complications Diabetes mellitus complication detail: with chronic kidney disease Chronic kidney disease stage: on chronic dialysis Qualified Code(s): E11.22 - Type 2 diabetes mellitus with diabetic chronic kidney disease; N18.6 - End stage renal disease; Z99.2 - Dependence on renal dialysis (10) Hypoglycemia: Improved. Hypoglycemia protocol ACHS. (11) Metabolic acidosis: Plan Anemia: Recent history of intra-abdominal requiring multiple transfusion. Hemoglobin at baseline for now. Heparin drip as above. Target hemoglobin over 8. Monitor hemoglobin every 12 hours for now. IV Protonix every 12 hours, Carafate ACHS. Liver cirrhosis: Appreciate INR and liver functions on admission. Ammonia level stable. Patient does have a paracentesis drain. For now we will hold off on paracentesis till after hemodialysis. Will plan for paracentesis as per hemodynamics after hemodialysis. Discussed in detail with the patient that going forward he should have a paracentesis done twice a week on Sunday and Sunday which are his nondialysis days of not more than 1 L per each session. Also advised to hold off on removal of fluid if he is having diarrhea or decreased oral intake. Plan for the day: Monitor hemodynamics. Continue with midodrine. Restart home dose of fludrocortisone. Send stool studies. If hemodynamically stable will plan for further paracentesis. Will stand fluid studies. Follow-up cultures. Wean oxygen supplementation keeping saturation over 90%. Plan for repeat dialysis in a.m. tomorrow. Continue with heparin drip for 24 more hours. Continue with home dose of Plavix. Discharge plan: Plan to discharge back to [facility]F in a.m. tomorrow if patient remains hemodynamically stable with dialysis tomorrow. CODE STATUS: Full code Renal dialysis diet Heparin drip will be sufficient for DVT prophylaxis Protonix every 12 hours will be sufficient for PUD prophylaxis Attestations 2 Medical Necessity Statement*: Requires further hospitalization for management of hypoxic respiratory failure in setting of fluid overload, non-ST elevation OK in setting of end-stage renal disease on hemodialysis and a chronically sick patient who was admitted with cardiogenic shock while shock is improving Diagnoses Shock R57.9 Acute non-ST elevation myocardial infarction (NSTEMI) I21.4 Acute respiratory failure J96.00 End stage kidney disease N18.6 Chronic diastolic congestive heart failure, NYHA class 3 I50.9 Goals of care, counseling/discussion Z71.89 Atrial fibrillation, unspecified type I48.91 Atrial fibrillation type: unspecified Altered mental status R41.82 Type 2 diabetes mellitus with chronic kidney disease on chronic dialysis, without long-term current use of insulin E11.22; N18.6; Z99.2 Diabetes mellitus supervisor intermediates insulin use: without supervisor intermediates use Diabetes mellitus complication status: with kidney complications Diabetes mellitus complication detail: with chronic kidney disease Chronic kidney disease stage: on chronic dialysis Hypoglycemia E16.2 Metabolic acidosis E87.20
[2023-12-28 16:44] LABS: Partial Thromboplastin Time 54.7 SECONDS (23.9-36.7)
[2023-12-28 16:54] LABS: Glucose Point of Care 153 mg/dL (70-110)
[2023-12-28 16:56] LABS: Cyto Order Verification No Order
[2023-12-28 17:09] LABS: Peritoneal Fluid Spec Gravity 1.005
[2023-12-28 17:16] LABS: Mononuclear #, Pertinoneal Fl 0.149 10^3/uL; Polynuclear # Cells, Perit 0.021 10^3/uL; RBC Pertioneal Fluid 4 10^3/uL; WBC Peritoneal Fluid 170 /uL
[2023-12-28 17:27] LABS: Albumin Peritoneal Fluid 1.7 g/dL
[2023-12-28 17:28] LABS: Appearance, Peritoneal Fluid Hazy (Clear); Color, Peritoneal Fluid Pale Yellow (Pale Yellow); Total Protein Peritoneal Fluid 3.5 g/dL
[2023-12-28] MEDS: ropinirole 0.25 mg Tablet PO (21:31)
[2023-12-28] MEDS: heparin drip 25,000 UNIT/500 ML PREMIX 35 UNIT IV (21:32)
[2023-12-29] VITALS (55 sets, daily range): BP systolic 81–115; BP diastolic 32–81; PULSE 73–82; RESP 12–30; TEMP 36.8–37.1; O2SAT 89–98; BMI 36.8
[2023-12-29 00:34] LABS: Glucose Point of Care 121 mg/dL (70-110)
[2023-12-29] MEDS: ipratropium-albuterol 3 mL Neb INHALATION ×4 (02:05→19:45)
[2023-12-29 03:19] LABS: Partial Thromboplastin Time 55.8 SECONDS (23.9-36.7)
[2023-12-29] MEDS: ondansetron 2 mg/ML SDV 2 mL 4 MG IVP ×2 (05:09→12:00)
[2023-12-29 05:33] LABS: Basophils % 0.1 %; Eosinophils # 0.1 10^3/uL (0.0-0.8); Eosinophils % 1.6 %; Lymphocytes # 0.9 10^3/uL (0.8-4.8); Lymphocytes % 12.4 %; Mean Corpuscular HGB Conc 29.3 g/dL (30-55); Mean Corpuscular Hemoglobin 30.7 pg (27-33); Mean Corpuscular Volume 105.1 fl (82-101); Mean Platelet Volume 11.1 fL (7.4-10.4); Monocytes # 0.5 10^3/uL (0.2-0.9); Monocytes % 6.9 %; Neutrophils # 5.47 10^3/uL (1.8-7.7); Neutrophils % 78.6 %; Nucleated Red Blood Cells % 0.3 %; Platelet Count 139 10^3/cmm (157-399); Red Blood Count 2.57 10^6/uL (3.85-5.65); Red Cell Distribution Width 21.7 % (12.1-15.1); White Blood Count 6.96 10^3/uL (3.29-11.43)
[2023-12-29 08:52] LABS: Alanine Aminotransferase 10 U/L (0-41); Albumin Level 3.2 g/dL (3.5-5.2); Alkaline Phosphatase 75 U/L (40-130); Anion Gap 22.4 (5-19); Aspartate Amino Transferase 16 U/L (0-40); Blood Urea Nitrogen 58 mg/dL (6-20); Calcium 7.3 mg/dL (8.5-10.5); Carbon Dioxide 26 mmol/L (22-29); Chloride 96 mmol/L (98-107); Globulin 4.2 g/dL (1.3-4.6); Glomerular Filtration Rate 12.8 mL/min (90-130); Glucose 95 mg/dL (65-115); Magnesium 1.8 mg/dL (1.7-2.3); Osmolality Calculated 306 mOsm/kg (285-295); Phosphorus 7.4 mg/dL (2.5-4.5); Potassium 4.4 mmol/L (3.5-5.1); Sodium 140 mmol/L (136-145); Total Bilirubin 0.4 mg/dL (0.15-1.2); Total Protein 7.4 g/dL (6.6-8.7)
[2023-12-29 08:56] LABS: Creatinine Clr Calc Pharmacy 24.1063
[2023-12-29 09:01] LABS: Glucose Point of Care 111 mg/dL (70-110)
[2023-12-29] MEDS: levothyroxine 25 mcg Tablet PO (09:12)
[2023-12-29] MEDS: amiodarone 200 mg Tablet PO (09:13)
[2023-12-29] MEDS: fludrocortisone 0.1 mg Tablet 0.200000000000000011 MG PO (09:13)
[2023-12-29] MEDS: midodrine 5 mg TABLET 10 MG PO ×3 (09:13→20:25)
[2023-12-29] MEDS: clopidogrel 75 mg Tablet PO (09:13)
[2023-12-29] MEDS: b-complex-vitamin c Tablet 1 EACH PO (09:13)
[2023-12-29] MEDS: pantoprazole 40 mg SDV IVP (09:13)
--- NOTE | 2023-12-29 10:13 | PC.NURSE ---
Patient refuses blood pressure cuff at this time.
--- NOTE | 2023-12-29 10:52 | P.PN_ITS ---
Subjective 2 Subjective: c/o edema, abd distention, sob, weak, uncomfortable Medications: Reviewed: Yes Medication Review Details: Current Medications Acetaminophen (Acetaminophen 325 Mg Tablet) 650 mg PO Q6H PRN PRN Reason: MILD PAIN Albuterol/Ipratropium (Ipratropium-Albuterol 3 Ml Neb) 3 ml INHALATION Q6H.RESP [facility] Last Admin: 12/29/23 08:09 Dose: 3 ml Amiodarone HCl (Amiodarone 200 Mg Tablet) 200 mg PO DAILY [facility] Last Admin: 12/29/23 09:13 Dose: 200 mg Bisacodyl (Bisacodyl 5 Mg Tablet) 10 mg PO DAILY PRN; Protocol PRN Reason: Constipation (see protocol) Clopidogrel Bisulfate (Clopidogrel 75 Mg Tablet) 75 mg PO DAILY [facility] Last Admin: 12/29/23 09:13 Dose: 75 mg Epoetin Zachary (Epoetin Zachary 1000 Unit/0.05 Ml (Esrd)) 10,000 unit IVP DIALYSIS [facility] Last Admin: 12/28/23 15:22 Dose: 10,000 unit Ergocalciferol (Ergocalciferol (Vitamin D2) 50,000 Unit Capsule) 50,000 unit PO Q7D [facility] Last Admin: 12/28/23 10:17 Dose: 50,000 unit Fludrocortisone Acetate (Fludrocortisone 0.1 Mg Tablet) 0.2 mg PO DAILY [facility] Last Admin: 12/29/23 09:13 Dose: 0.2 mg Gabapentin (Gabapentin 300 Mg Capsule) 300 mg PO Q8H PRN PRN Reason: NERVE PAIN Heparin Sodium (Porcine) (Heparin 5,000 Unit/Ml Inj 1 Ml) 0 unit IV PRN PRN; Protocol PRN Reason: Heparin weight-base protocol norepinephrine (Levophed) 4 mg in 250 mls @ 0 mls/hr IV .Q0M [facility]; Protocol Last Titration: 12/28/23 00:00 Dose: 0 mcg/min, 0 mls/hr Dextrose (D10w) 125 mls @ 750 mls/hr IV PRN PRN PRN Reason: HYPOGLYCEMIA Last Infusion: 12/26/23 14:00 Dose: Infused Heparin Sodium/Sodium Chloride (Heparin Drip) 25,000 unit in 500 mls @ 0 mls/hr IV .Q0M [facility]; Protocol Last Titration: 12/29/23 03:27 Dose: 14.29 unit/kg/hr, 35 mls/hr Dextrose (D5w) 500 mls @ 0 mls/hr IV ONCE PRN; Protocol PRN Reason: Adult Acute Hypoglycemia Prot Dextrose (D10w) 125 mls @ 750 mls/hr IV PRN PRN; Protocol PRN Reason: Adult Acute Hypoglycemia Nursing Protocol Dextrose (D10w) 250 mls @ 1,000 mls/hr IV PRN PRN; Protocol PRN Reason: Adult Acute Hypoglycemia Nursing Protocol Albumin Human (Albumin) 12.5 gm in 50 mls @ 60 mls/hr IV PRN PRN PRN Reason: Hypotension and/or symptomatic Lactulose (Lactulose Oral Liq 20 Gm/30 Ml Udc) 10 gm PO DAILY PRN; Protocol PRN Reason: Constipation (see protocol) Levothyroxine Sodium (Levothyroxine 25 Mcg Tablet) 25 mcg PO DAILY [facility] Last Admin: 12/29/23 09:12 Dose: 25 mcg Magnesium Hydroxide (Magnesium Hydroxide 30 Ml Udc) 30 ml PO DAILY PRN; Protocol PRN Reason: Constipation (see protocol) Midodrine (Midodrine 5 Mg Tablet) 10 mg PO TID [facility] Last Admin: 12/29/23 09:13 Dose: 10 mg Multivitamins (I-Lszdxjp-Drelbek C Tablet) 1 each PO DAILY [facility] Last Admin: 12/29/23 09:13 Dose: 1 each Ondansetron HCl (Ondansetron 2 Mg/Ml Sdv 2 Ml) 4 mg IVP Q6H PRN PRN Reason: NAUSEA AND VOMITING Last Admin: 12/29/23 05:09 Dose: 4 mg Oxycodone HCl (Oxycodone 5 Mg Ir Tab/Cap) 5 mg PO Q4H PRN PRN Reason: Pain Last Admin: 12/28/23 19:08 Dose: 5 mg Pantoprazole Sodium (Pantoprazole 40 Mg Sdv) 40 mg IVP DAILY [facility] Last Admin: 12/29/23 09:13 Dose: 40 mg Ropinirole HCl (Ropinirole 0.25 Mg Tablet) 0.25 mg PO BEDTIME [facility] Last Admin: 12/28/23 21:31 Dose: 0.25 mg Vitals/I&O/Wt Last Vital Signs Temp 98.7 F 12/29/23 10:00 Pulse 79 12/29/23 10:00 Resp 22 H 12/29/23 10:00 BP 81/58 12/29/23 08:00 Pulse Ox 92 12/29/23 10:00 O2 Del Method Nasal Cannula 12/29/23 08:00 O2 Flow Rate 2 12/29/23 08:00 FiO2 50 12/28/23 06:00 12/28/23 12/29/23 12/29/23 22:59 06:59 14:59 Intake Total 807.967 / 1235.200 307.083 / 1542.283 200 / 200 Output Total 750 / 750 Balance 57.967 / 485.200 307.083 / 792.283 200 / 200 Weight last 48 hrs Weight 123 kg Weight 122.243 kg Weight 122.243 kg Weight 124.5 kg Physical Exam 2 Narrative: obese man on NC02, sitting up in bed- uncomfortable VS noted - sBP 114 heent- nc/at, eomi neck no jvp lungs dull bases and b/l crackles heart irreg irreg +YAS abdomen soft, + bs, NT, + distended, + catheter ext +LUE AVF w/ thrill and bruit legs LLE BKA, + leg edema poor pulses neuro- a,a, o x 3 seen and examined by telehealth visit w/ RN Data 12/29/23 05:00 12/29/23 07:35 A&P Assessment and plan (1) End stage renal disease on dialysis: 53 yr old man 1. eSRD- HD TTS schedule. -will hold dialysis today to allow more fluid to be removed from his ascites - can give albumin or blood w/ fluid drainage -assess for repeat dialysis tomorrow k 4.4 bicarb 26, bun 58- no uremic symptoms- can wait for dialysis 2. cardiogenic shock and rate controlled a fib 3. DM -control per medicine 4. anemia- high ferritin, continue epo. hgb stable 5. thrombocytopenia- likely from cirrhosis. plts mildly improved 6. hypercapneic resp acidosis- BiPAP as needed 7.replace vit d and zemplar w/ dialysis. check phos 8. normal tsh seen and examined w/ rN- telehealth visit informed consent for telehealth obtained from pt discussed w/ pt, RN, and Dr Robertson Plan see above- ESRD, CHF, cirrhosis, hypercapneic resp acidosis Attestations 2 Medical Necessity Statement*: volume overload, ESRD, SOB, hypotension Time Spent in Patient Care: 16 - 35 minutes Coding Level of Care Code Acute Code for Chg Fwd Diagnoses End stage renal disease on dialysis N18.6; Z99.2
--- NOTE | 2023-12-29 11:06 | PC.NURSE ---
Dr. Fatima hold on dialysis for today, hold dialysis meds, placed in pharmacy return bin.
[2023-12-29 12:07] LABS: Glucose Point of Care 130 mg/dL (70-110)
--- NOTE | 2023-12-29 12:41 | PC.NURSE ---
Dr. Bonner at bedside rounding verbal order to stop heparin drip.
--- NOTE | 2023-12-29 14:55 | PM.PN ---
Subjective Subjective: No acute events overnight. Patient denies any nausea, ting, headache. States he is feeling full in his abdomen and wants the fluid to be removed if possible. Overall hemodynamics have remained stable his mean artery pressure overall has remained stable with few episodes of systolic blood pressure below 100 mmHg. Patient has remained awake and alert. Vitals/I&O/Wt Last Vital Signs Temp 98.7 F 12/29/23 10:00 Pulse 73 12/29/23 14:45 Resp 19 H 12/29/23 14:00 BP 106/68 12/29/23 14:00 Pulse Ox 91 12/29/23 14:00 O2 Del Method Nasal Cannula 12/29/23 14:00 O2 Flow Rate 2 12/29/23 13:20 FiO2 50 12/28/23 06:00 12/28/23 12/29/23 12/29/23 22:59 06:59 14:59 Intake Total 807.967 / 1235.200 307.083 / 1542.283 492.917 / 492.917 Output Total 750 / 750 2500 / 2500 Balance 57.967 / 485.200 307.083 / 792.283 - / - Weight last 48 hrs Weight 123 kg Weight 122.243 kg Weight 122.243 kg Weight 124.5 kg Physical Exam Narrative: General: AOx3, no acute distress, on nasal cannula, chronically sick appearing HEENT: PERRLA, pupils bilaterally equal and reactive Chest: Bronchial breath sounds all over lung ray with occasional rhonchi, decreased air entry all over more so in bilateral lower zone CVS: S1-S2 regular, no murmurs, no tachycardia, no gallops, no rubs Abdomen: Soft, nontender, no organomegaly, bowel sounds present Neuro: Moving all limbs, no focal deficit Data 12/29/23 05:00 12/29/23 07:35 Micro: Microbiology 12/28/23 16:10 Gram Stain - Final Peritoneal Fluid Body Fluid Culture - Preliminary A&P Assessment and plan (1) Shock: Most likely cardiogenic in nature. Patient does not seem to have any sign of infection. Has remained afebrile without leukocytosis. Denies any diarrhea, difficulty in breathing, cough, dysuria. Keep mean arterial pressure over 65. Levophed currently weaned off. Continue with home dose of midodrine and fludrocortisone. Patient has tolerated 1 L of paracentesis for last 2 days. Requesting more fluid to be removed if possible. Will remove 2 L in a.m. and if blood pressures remain stable we will plan to remove up to 2 L again later in the evening. Discussed in detail with nephrology. Hold off on dialysis for today. Follow-up blood cultures, fluid cultures. Fluid analysis negative for SBP. (2) Acute non-ST elevation myocardial infarction (NSTEMI): Last cardiac angiogram from earlier this year showed critical ostial left circumflex in-stent restenosis and severe stenosis of OM1 treated with balloon angioplasty of the ostial left circumflex and DAVE x 1 to the OM1. Appreciate cardiology recommendations. Echocardiogram done showed EF of 40 to 45% with mild global LV hypokinesia. After discussion with patient and family it was decided to continue with medical therapy. Patient has been on heparin drip for more than 72 hours. Will discontinue today. Switch to heparin 5000 every 12 hourly as per DVT prophylaxis. Hemoglobin has remained stable. Will plan to discharge patient on Eliquis and Plavix. (3) Acute respiratory failure: Most likely in setting of hypervolemia along with poor mentation. Keep oxygen saturation over 90%. Patient back to home oxygen supplementation of 2 L. Wean oxygen supplementation accordingly. Pulmicort twice daily, ipratropium, Xopenex every 6 hours. (4) End stage kidney disease: On maintenance hemodialysis. Continue with dialysis as per home schedule. Holding off on dialysis today as patient will be undergoing paracentesis. Plan for repeat dialysis in a.m. tomorrow. Appreciate nephrology recommendations. (5) CHF (congestive heart failure), NYHA class III: Last echocardiogram results appreciated. History of right-sided heart failure along with possible aortic stenosis. Continue to monitor. Plan for dialysis today. (6) Goals of care, counseling/discussion: On admission as patient was altered. Per discussions were done with patient's DPOA including his and sister at bedside. At that time family had wished for DNR/DNI, no further dialysis, revascularization for ACS, no escalation of care. Today patient is awake and alert. Further goals of care discussions were done in detail with the patient. We discussed about quality of life versus quantity of life. We discussed unfortunately even with maximum medical therapy patient continues to have recurrent hospitalization and is getting weaker and sicker with his hospitalization secondary to his history of end-stage renal disease, significant liver cirrhosis, congestive heart failure in setting of CAD, COPD. Patient verbalizes understanding. He states for now quality of life is less important to him than quantity of life and he wants to live for as long as possible. Going further once his sickle quality of life would be more important but for now he would like to live for as long as possible. He wants to pursue revascularization if needed, continue hemodialysis. He is okay with short cycle of chest compression if needed and mechanical ventilation. CODE STATUS changed to full code. Cardiology and nephrology have been consulted for non-ST elevation [place] and end-stage renal disease requiring hemodialysis. (7) Atrial fibrillation: Currently rate controlled. Takes amiodarone 200 mg daily at home. Possibly also takes Eliquis 5 mg twice daily. When last discharged patient was not on Eliquis but currently seems to be on Eliquis as per the medical reconciliation from the [facility]. Will confirm. Starting Eliquis today. Hemoglobin has remained stable. Qualifiers: Atrial fibrillation type: unspecified Qualified Code(s): I48.91 - Unspecified atrial fibrillation (8) Altered mental status: Most likely in setting of shock, hypoglycemia, hypoxia and hypercapnia, metabolic acidosis. Hepatic encephalopathy ruled out with normal ammonia levels. Mentation back to baseline. Restart diet. (9) Type 2 diabetes mellitus: Hypoglycemia protocol. Appreciate recent A1c. Qualifiers: Diabetes mellitus assisted insulin use: without long term acute care registered nurse use Diabetes mellitus complication status: with kidney complications Diabetes mellitus complication detail: with chronic kidney disease Chronic kidney disease stage: on chronic dialysis Qualified Code(s): E11.22 - Type 2 diabetes mellitus with diabetic chronic kidney disease; N18.6 - End stage renal disease; Z99.2 - Dependence on renal dialysis (10) Hypoglycemia: Improved. Hypoglycemia protocol ACHS. (11) Metabolic acidosis: Plan Anemia: Recent history of intra-abdominal requiring multiple transfusion. Hemoglobin at baseline for now. Anticoagulation as above. Check reticulocyte count. Appreciate iron panel to thrice. Check vitamin B12 and folate levels. Target hemoglobin over 8. Monitor hemoglobin every 12 hours for now. IV Protonix every 12 hours, Carafate ACHS. Liver cirrhosis: Appreciate INR and liver functions on admission. Ammonia level stable. Patient does have a paracentesis drain. For now we will hold off on paracentesis till after hemodialysis. Will plan for paracentesis as per hemodynamics after hemodialysis. Discussed in detail with the patient that going forward he should have a paracentesis done twice to thrice a week on his nondialysis days of not more than 1-1.5 L per each session. Also advised to hold off on removal of fluid if he is having diarrhea or decreased oral intake. CODE STATUS: Full code Renal dialysis diet Eliquis 5 mg twice daily will be sufficient for DVT prophylaxis Protonix every 12 hours will be sufficient for PUD prophylaxis Attestations Medical Necessity Statement*: Requires further hospitalization for management of hypotension in setting of adrenal insufficiency, HD renal disease on hemodialysis as patient requires further paracentesis in setting of end-stage renal disease and liver cirrhosis, non-ST elevation DC Diagnoses Shock R57.9 Acute non-ST elevation myocardial infarction (NSTEMI) I21.4 Acute respiratory failure J96.00 End stage kidney disease N18.6 Chronic diastolic congestive heart failure, NYHA class 3 I50.9 Goals of care, counseling/discussion Z71.89 Atrial fibrillation, unspecified type I48.91 Atrial fibrillation type: unspecified Altered mental status R41.82 Type 2 diabetes mellitus with chronic kidney disease on chronic dialysis, without long-term current use of insulin E11.22; N18.6; Z99.2 Diabetes mellitus long term acute care registered nurse insulin use: without long term acute care registered nurse use Diabetes mellitus complication status: with kidney complications Diabetes mellitus complication detail: with chronic kidney disease Chronic kidney disease stage: on chronic dialysis Hypoglycemia E16.2 Metabolic acidosis E87.20
--- NOTE | 2023-12-29 16:30 | PC.NURSE ---
Verbal order from Dr. Bonner to pull an additional one liter of peritoneal fluid.
[2023-12-29 17:26] LABS: Glucose Point of Care 98 mg/dL (70-110)
--- NOTE | 2023-12-29 17:39 | PC.NURSE ---
Family at bedside displeased with visitor policy. Charge nurse notified. Patient to nurses station voicing displeasure and unwillingness to comply with visitor policy. Patients sated she had personally spoken with Dr. Bonner and gained approval for multiple visitors to stay at bedside. Charge nurse spoke with Dr. Bonner and endorsed following visitor policy. Patient requested to speak directly with and this was arranged. Visitor policy enforced. Patient requests to change hospitalist.
[2023-12-29] MEDS: apixaban 5 mg Tablet PO (20:25)
[2023-12-29] MEDS: ropinirole 0.25 mg Tablet PO (20:25)
--- NOTE | 2023-12-29 21:45 | PC.NURSE ---
Assessment Patient physical assessment completed at 2115 per patient request due to visitors in room as well as finishing his meal.
[2023-12-29 21:47] LABS: Glucose Point of Care 141 mg/dL (70-110)
--- NOTE | 2023-12-29 22:40 | PC.NURSE ---
Wound care Dr. Barclay notified of ulcer on patient's right ankle; wound care order placed by physician for foam dressing daily.
[2023-12-30] VITALS (57 sets, daily range): BP systolic 74–126; BP diastolic 48–98; PULSE 69–118; RESP 12–26; TEMP 36.6–37; O2SAT 81–100; BMI 36.6
[2023-12-30] MEDS: ipratropium-albuterol 3 mL Neb INHALATION ×4 (03:05→20:55)
[2023-12-30] MEDS: oxyCODONE 5 mg IR Tab/Cap PO ×2 (04:51→19:54)
[2023-12-30] MEDS: ondansetron 2 mg/ML SDV 2 mL 4 MG IVP ×2 (06:44→19:55)
[2023-12-30 06:59] LABS: Glucose Point of Care 99 mg/dL (70-110)
--- NOTE | 2023-12-30 07:09 | PM.PN ---
Subjective Subjective: less sob and swollen after 3.5 l fluids removed from abdominal tube/ ascites yesterday. still weak, nause. Medications: Reviewed: Yes Medication Review Details: Current Medications Acetaminophen (Acetaminophen 325 Mg Tablet) 650 mg PO Q6H PRN PRN Reason: MILD PAIN Albuterol/Ipratropium (Ipratropium-Albuterol 3 Ml Neb) 3 ml INHALATION Q6H.RESP [facility] Last Admin: 12/30/23 03:05 Dose: 3 ml Amiodarone HCl (Amiodarone 200 Mg Tablet) 200 mg PO DAILY [facility] Last Admin: 12/29/23 09:13 Dose: 200 mg Apixaban (Apixaban 5 Mg Tablet) 5 mg PO BID@0900,2100 [facility] Last Admin: 12/29/23 20:25 Dose: 5 mg Bisacodyl (Bisacodyl 5 Mg Tablet) 10 mg PO DAILY PRN; Protocol PRN Reason: Constipation (see protocol) Clopidogrel Bisulfate (Clopidogrel 75 Mg Tablet) 75 mg PO DAILY [facility] Last Admin: 12/29/23 09:13 Dose: 75 mg Epoetin Zachary (Epoetin Zachary 1000 Unit/0.05 Ml (Esrd)) 10,000 unit IVP DIALYSIS [facility] Last Admin: 12/29/23 14:03 Dose: Not Given Ergocalciferol (Ergocalciferol (Vitamin D2) 50,000 Unit Capsule) 50,000 unit PO Q7D [facility] Last Admin: 12/28/23 10:17 Dose: 50,000 unit Fludrocortisone Acetate (Fludrocortisone 0.1 Mg Tablet) 0.2 mg PO DAILY [facility] Last Admin: 12/29/23 09:13 Dose: 0.2 mg Gabapentin (Gabapentin 300 Mg Capsule) 300 mg PO Q8H PRN PRN Reason: NERVE PAIN norepinephrine (Levophed) 4 mg in 250 mls @ 0 mls/hr IV .Q0M [facility]; Protocol Last Titration: 12/28/23 00:00 Dose: 0 mcg/min, 0 mls/hr Dextrose (D10w) 125 mls @ 750 mls/hr IV PRN PRN PRN Reason: HYPOGLYCEMIA Last Infusion: 12/26/23 14:00 Dose: Infused Dextrose (D5w) 500 mls @ 0 mls/hr IV ONCE PRN; Protocol PRN Reason: Adult Acute Hypoglycemia Prot Dextrose (D10w) 125 mls @ 750 mls/hr IV PRN PRN; Protocol PRN Reason: Adult Acute Hypoglycemia Nursing Protocol Dextrose (D10w) 250 mls @ 1,000 mls/hr IV PRN PRN; Protocol PRN Reason: Adult Acute Hypoglycemia Nursing Protocol Albumin Human (Albumin) 12.5 gm in 50 mls @ 60 mls/hr IV PRN PRN PRN Reason: Hypotension and/or symptomatic Lactulose (Lactulose Oral Liq 20 Gm/30 Ml Udc) 10 gm PO DAILY PRN; Protocol PRN Reason: Constipation (see protocol) Levothyroxine Sodium (Levothyroxine 25 Mcg Tablet) 25 mcg PO DAILY [facility] Last Admin: 12/29/23 09:12 Dose: 25 mcg Magnesium Hydroxide (Magnesium Hydroxide 30 Ml Udc) 30 ml PO DAILY PRN; Protocol PRN Reason: Constipation (see protocol) Midodrine (Midodrine 5 Mg Tablet) 10 mg PO TID [facility] Last Admin: 12/29/23 20:25 Dose: 10 mg Multivitamins (F-Tdjvzdl-Gcildce C Tablet) 1 each PO DAILY [facility] Last Admin: 12/29/23 09:13 Dose: 1 each Ondansetron HCl (Ondansetron 2 Mg/Ml Sdv 2 Ml) 4 mg IVP Q6H PRN PRN Reason: NAUSEA AND VOMITING Last Admin: 12/30/23 06:44 Dose: 4 mg Oxycodone HCl (Oxycodone 5 Mg Ir Tab/Cap) 5 mg PO Q4H PRN PRN Reason: Pain Last Admin: 12/30/23 04:51 Dose: 5 mg Pantoprazole Sodium (Pantoprazole 40 Mg Sdv) 40 mg IVP DAILY [facility] Last Admin: 12/29/23 09:13 Dose: 40 mg Ropinirole HCl (Ropinirole 0.25 Mg Tablet) 0.25 mg PO BEDTIME [facility] Last Admin: 12/29/23 20:25 Dose: 0.25 mg Vitals/I&O/Wt Last Vital Signs Temp 98 F 12/30/23 04:30 Pulse 74 12/30/23 06:15 Resp 22 H 12/30/23 06:00 BP 113/81 12/30/23 06:00 Pulse Ox 96 12/30/23 06:00 O2 Del Method Nasal Cannula 12/30/23 04:30 O2 Flow Rate 2 12/30/23 04:30 FiO2 59 12/30/23 03:07 12/29/23 12/30/23 12/30/23 22:59 06:59 14:59 Intake Total 322 / 814.917 190 / 1004.917 Output Total 1000 / 3500 Balance -678 / -2685.083 190 / -2495.083 Weight last 48 hrs Weight 122.742 kg Weight 123 kg Physical Exam Narrative: obese man on NC02, sitting up in bed- more comfortable than yesterday VS noted and stable heent- nc/at, eomi neck no jvp lungs dull bases and b/l crackles heart irreg irreg +YAS abdomen soft, + bs, NT, + distended, + catheter ext +LUE AVF w/ thrill and bruit legs LLE BKA, + leg edema poor pulses neuro- a,a, o x 3 seen and examined by telehealth visit w/ RN Data 12/29/23 05:00 12/29/23 07:35 Micro: Microbiology 12/28/23 16:10 Gram Stain - Final Peritoneal Fluid Body Fluid Culture - Preliminary A&P Assessment and plan (1) End stage renal disease on dialysis: 53 yr old man 1. eSRD- HD TTS schedule. -repeat HD today 3 hrs, 3k, remove 1.5 l 2. Cardiogenic shock and rate controlled a fib 3. DM -control per medicine 4. anemia- high ferritin, continue epo. hgb stable 5. thrombocytopenia- likely from cirrhosis. plts mildly improved 6. hypercapneic resp acidosis- BiPAP as needed 7.replace vit d and zemplar w/ dialysis. check phos 8. ascites- s/p 3.5 l drained yesterday and BP stable d/c to rehab after dialysis if BP is stable seen and examined w/ rN- telehealth visit informed consent for telehealth obtained from pt discussed w/ pt, RN. Plan see above- ESRD, CHF, cirrhosis, hypercapneic resp acidosis Attestations Medical Necessity Statement*: esrd, ascites, resp distress, edema Time Spent in Patient Care: 16 - 35 minutes Coding Level of Care Code Acute Code for Chg Fwd Diagnoses End stage renal disease on dialysis N18.6; Z99.2
[2023-12-30] MEDS: fludrocortisone 0.1 mg Tablet 0.200000000000000011 MG PO (08:19)
[2023-12-30] MEDS: levothyroxine 25 mcg Tablet PO (08:19)
[2023-12-30] MEDS: pantoprazole 40 mg SDV IVP ×2 (08:19→22:27)
[2023-12-30] MEDS: midodrine 5 mg TABLET 10 MG PO ×3 (08:20→21:08)
[2023-12-30] MEDS: b-complex-vitamin c Tablet 1 EACH PO (08:20)
[2023-12-30] MEDS: amiodarone 200 mg Tablet PO (08:20)
[2023-12-30] MEDS: sevelamer 800 mg Tablet 1600 MG PO ×3 (08:20→21:08)
[2023-12-30] MEDS: clopidogrel 75 mg Tablet PO (08:20)
[2023-12-30] MEDS: apixaban 5 mg Tablet PO (08:21)
[2023-12-30 08:22] LABS: Magnesium 1.9 mg/dL (1.7-2.3)
[2023-12-30 08:34] LABS: Phosphorus 8.4 mg/dL (2.5-4.5)
[2023-12-30] MEDS: albumin 12.5 GM/50 ML VIAL IV ×2 (11:10→12:00)
[2023-12-30 11:26] LABS: Glucose Point of Care 120 mg/dL (70-110)
[2023-12-30 11:40] LABS: Basophils % 0.3 %; Eosinophils # 0.2 10^3/uL (0.0-0.8); Hematocrit 27.5 % (37-53); Lymphocytes # 0.5 10^3/uL (0.8-4.8); Mean Corpuscular HGB Conc 29.5 g/dL (30-55); Mean Corpuscular Volume 105.4 fl (82-101); Mean Platelet Volume 10.9 fL (7.4-10.4); Monocytes # 0.3 10^3/uL (0.2-0.9); Monocytes % 4.6 %; Neutrophils # 4.93 10^3/uL (1.8-7.7); Neutrophils % 81.8 %; Nucleated Red Blood Cells % 0 %; Platelet Count 122 10^3/cmm (157-399); Red Blood Count 2.61 10^6/uL (3.85-5.65); Red Cell Distribution Width 22.4 % (12.1-15.1); White Blood Count 6.03 10^3/uL (3.29-11.43)
[2023-12-30 12:02] LABS: Alanine Aminotransferase 10 U/L (0-41); Albumin Level 3.5 g/dL (3.5-5.2); Alkaline Phosphatase 84 U/L (40-130); Anion Gap 17.3 (5-19); Aspartate Amino Transferase 16 U/L (0-40); Blood Urea Nitrogen 35 mg/dL (6-20); Calcium 7.8 mg/dL (8.5-10.5); Carbon Dioxide 27 mmol/L (22-29); Chloride 96 mmol/L (98-107); Creatinine Clr Calc Pharmacy 37.2856; Globulin 4.1 g/dL (1.3-4.6); Glomerular Filtration Rate 21.2 mL/min (90-130); Glucose 117 mg/dL (65-115); Osmolality Calculated 293 mOsm/kg (285-295); Potassium 3.3 mmol/L (3.5-5.1); Sodium 137 mmol/L (136-145); Total Bilirubin 0.4 mg/dL (0.15-1.2); Total Protein 7.6 g/dL (6.6-8.7)
[2023-12-30] MEDS: norepinephrine 4 MG/250 ML BAG 30 MG IV (12:05)
[2023-12-30] MEDS: epoetin alfa 1000 Unit/0.05 mL (ESRD) 10000 UNIT IVP (12:15)
[2023-12-30] MEDS: heparin, porcine 1,000 unit/mL INJ 10 mL 10000 UNIT HE (12:18)
[2023-12-30 12:33] LABS: Vitamin B12 744 pg/mL (232-1245)
[2023-12-30 20:18] LABS: C.Diff PCR (Lab) NEGATIVE (Negative)
--- NOTE | 2023-12-30 20:36 | PC.NURSE ---
Stool Patient's bowel movement noted to have what looked like trace amounts of blood in stool. Dr. Barclay notified; order received for a fecal occult blood test.
[2023-12-30] MEDS: ropinirole 0.25 mg Tablet PO (21:08)
[2023-12-30 21:15] LABS: Glucose Point of Care 121 mg/dL (70-110)
--- NOTE | 2023-12-30 22:10 | PC.NURSE ---
Fecal Occult Blood Test Dr. Barclay notified of positive fecal occult blood test. Order received to discontinue eliquis and start heparin drip; order verified with Dr. Barclay. Orders placed by physician. Additional orders received from Dr. Barclay to increase 40 mg protonix IVP from daily to BID starting now and to not administer a loading bolus of heparin. See MAR for details.
[2023-12-30 22:23] LABS: Platelet Count 109 10^3/cmm (157-399)
[2023-12-30] MEDS: heparin drip 25,000 UNIT/500 ML PREMIX 34.0200000000000031 UNIT IV (22:27)
[2023-12-31] VITALS (44 sets, daily range): BP systolic 82–118; BP diastolic 52–93; PULSE 68–85; RESP 10–30; TEMP 36.4–37.1; O2SAT 88–100; BMI 36.3
--- NOTE | 2023-12-31 00:10 | PC.NURSE ---
Platelet Count Dr. Barclay notified of low platelet count of 109,000. No new orders received.
[2023-12-31] MEDS: oxyCODONE 5 mg IR Tab/Cap PO (00:58)
[2023-12-31] MEDS: ipratropium-albuterol 3 mL Neb INHALATION ×3 (03:14→14:55)
[2023-12-31 05:00] LABS: Basophils % 0.4 %; Eosinophils # 0.2 10^3/uL (0.0-0.8); Eosinophils % 3.9 %; Hematocrit 26.2 % (37-53); Lymphocytes # 0.7 10^3/uL (0.8-4.8); Lymphocytes % 12.8 %; Mean Corpuscular HGB Conc 29.4 g/dL (30-55); Mean Corpuscular Hemoglobin 30.7 pg (27-33); Mean Corpuscular Volume 104.4 fl (82-101); Mean Platelet Volume 10.9 fL (7.4-10.4); Monocytes # 0.5 10^3/uL (0.2-0.9); Monocytes % 8.7 %; Neutrophils # 3.83 10^3/uL (1.8-7.7); Nucleated Red Blood Cells % 0 %; Platelet Count 116 10^3/cmm (157-399); Red Blood Count 2.51 10^6/uL (3.85-5.65); Red Cell Distribution Width 22.6 % (12.1-15.1); White Blood Count 5.17 10^3/uL (3.29-11.43)
[2023-12-31 05:11] LABS: Partial Thromboplastin Time 32.8 SECONDS (23.9-36.7)
[2023-12-31 05:14] LABS: Alanine Aminotransferase 11 U/L (0-41); Albumin Level 3.4 g/dL (3.5-5.2); Alkaline Phosphatase 69 U/L (40-130); Blood Urea Nitrogen 57 mg/dL (6-20); Calcium 7.9 mg/dL (8.5-10.5); Carbon Dioxide 26 mmol/L (22-29); Chloride 97 mmol/L (98-107); Globulin 3.6 g/dL (1.3-4.6); Glomerular Filtration Rate 10.7 mL/min (90-130); Glucose 105 mg/dL (65-115); Osmolality Calculated 300 mOsm/kg (285-295); Sodium 137 mmol/L (136-145); Total Bilirubin 0.5 mg/dL (0.15-1.2)
[2023-12-31 05:17] LABS: Anion Gap 19.5 (5-19); Aspartate Amino Transferase 25 U/L (0-40); Magnesium 1.7 mg/dL (1.7-2.3); Phosphorus 6.9 mg/dL (2.5-4.5); Potassium 5.5 mmol/L (3.5-5.1)
[2023-12-31] MEDS: heparin 5,000 unit/mL INJ 1 mL IV (05:26)
[2023-12-31 05:33] LABS: Folate Level > 20.0 ng/mL (4.5-32.2)
--- NOTE | 2023-12-31 06:47 | P.DS_ITS ---
Discharge Providers Date of Admission: 12/26/23 15:59 Date of Discharge: December 31, 2023 Attending Provider at Admission: Edil Bonner MD Attending Provider at Discharge: Chris Johansen MD Primary Care Provider: Sulma Wetzel MD Diagnoses at Discharge Discharge Diagnosis (1) End stage renal disease on dialysis: Status: Acute Reason for Visit Reason for Visit: hypoglycemia/ unresponsive Hospital Course Hospital Course 53 male with history of end-stage renal disease, hepatorenal syndrome, portal hypertension, GI bleed requiring 5 unit PRBC on previous admission, intraperitoneal bleeding after paracentesis, Eliquis was discontinued, on previous admission we had detailed discussion about poor prognosis, put a peritoneal drain for recurrent ascites requiring therapeutic paracentesis, nephrology is in agreement as well that despite use of midodrine his blood pressure has remained low and he carries a guarded prognosis, his blood pressure responded well to use of fludrocortisone and steroids, This time he presented back to the hospital with chief complaint of low blood pressure and hypoglycemia from the group home. He is requiring Levophed for a few hours after every dialysis session. During this admission there was concern for non-STEMI, cardiology was consulted who recommended medical management. Patient is stating that he would not quit until his heart stops, then his will make decision for him, he is willing to go on palliative care but wants to stay full code, is not able to take care of him at home, on this admission he was transitioned from heparin to Eliquis however his FOBT is positive, I have advised patient not to use any anticoagulating agent at all I do anticipate that patient will come back to the hospital after dialysis secondary to low blood pressure to use Levophed for a few hours, this is a very unfortunate situation, patient is aware that he carries a guarded prognosis. For his loose stools C. difficile was ruled out. To help out with his low blood pressure we have decided to give him 1 unit PRBC, add hydrocortisone to mineralocorticoid for the cortisone , dialyze him today and then discharge him back to group home Physical Exam Narrative: Sarcopenia Awake and alert GCS 15 Currently room air Pressure 107/70 mmHg Peritoneal drain in place Discharge Data Studies Completed and Pending Completed Studies During Hospitalization Category Date Time Status CXRP [XR chest 1V portable [id number]] Stat Exams 12/26/23 14:47 Completed XR chest 1V portable [id number] Stat Exams 12/26/23 13:10 Completed CV. echo limited [id number] Routine Ultrasound 12/27/23 12:55 Completed Pending at discharge Category Date Time Status Blood Culture Stat Lab 12/26/23 15:55 Results Body Fluid Culture & GS Routine Lab 12/28/23 16:10 Results CBC Auto Diff [Complete Blood Count w/Auto] Routine Lab 12/31/23 10:00 Ordered PTT [Partial Thromboplastin Time] Timed Lab 12/31/23 11:30 Ordered Peritoneal Fld Adenosine Deami Routine Lab 12/28/23 16:10 Received Platelet Count Q2D Lab 01/01/24 04:00 Ordered Platelet Count Q2D Lab 01/03/24 04:00 Ordered RETIC [Reticulocyte Count] Routine Lab 12/30/23 10:55 Ordered Vitamin D 1,25 Dihydroxy Routine Lab 12/27/23 17:23 Received Radiology Impressions Chest X-Ray 12/26/23 14:47 IMPRESSION: 1. Right-sided PICC line appearing to end in the region of the cavoatrial junction. 2. Cardiac enlargement with increased pulmonary vascularity. Laboratory Results WBC 5.17 10^3/uL (3.29-11.43) 12/31/23 04:44 RBC 2.51 10^6/uL (3.85-5.65) L 12/31/23 04:44 Hgb 7.70 g/dL (11.27-16.99) L 12/31/23 04:44 Hct 26.2 % (37-53) L 12/31/23 04:44 MCV 104.4 fl (82-101) H 12/31/23 04:44 MCH 30.7 pg (27-33) 12/31/23 04:44 MCHC 29.4 g/dL (30-55) L 12/31/23 04:44 RDW 22.6 % (12.1-15.1) H 12/31/23 04:44 Plt Count 116 10^3/cmm (157-399) L 12/31/23 04:44 MPV 10.9 fL (7.4-10.4) H 12/31/23 04:44 Neut % (Auto) 74.0 % 12/31/23 04:44 Lymph % (Auto) 12.8 % 12/31/23 04:44 [place] % (Auto) 8.7 % 12/31/23 04:44 Eos % (Auto) 3.9 % 12/31/23 04:44 Baso % (Auto) 0.4 % 12/31/23 04:44 Neut # (Auto) 3.83 10^3/uL (1.8-7.7) 12/31/23 04:44 Lymph # (Auto) 0.7 10^3/uL (0.8-4.8) L 12/31/23 04:44 [place] # (Auto) 0.5 10^3/uL (0.2-0.9) 12/31/23 04:44 Eos # (Auto) 0.2 10^3/uL (0.0-0.8) 12/31/23 04:44 Baso # (Auto) 0.0 10^3/uL (0.0-0.1) 12/31/23 04:44 Nucleated RBC % (auto) 0 % 12/31/23 04:44 Nucleated RBCs # 0.0 /100WBC 12/31/23 04:44 PT 27.90 SECONDS (12.1-14.9) H 12/26/23 15:42 INR 2.49 (0.8-1.2) H 12/26/23 15:42 APTT 32.8 SECONDS (23.9-36.7) 12/31/23 04:44 Specimen Type Arterial 12/27/23 09:34 Sample Site Radial, right 12/27/23 09:34 ABG pH 7.31 (7.35-7.45) L 12/27/23 09:34 ABG pCO2 56.0 mmHg (35-45) H 12/27/23 09:34 ABG pO2 92.3 mmHg (80.0-100.0) 12/27/23 09:34 ABG PO2/FiO2 Ratio 0 12/27/23 09:34 ABG HCO3 28.4 mmol/L (22-26) H 12/27/23 09:34 ABG O2 Saturation 99.6 12/26/23 14:09 ABG Base Excess 1.6 mmol/L (-2.0-2.0) 12/27/23 09:34 Jesus Test Pos 12/27/23 09:34 A-a O2 Gradient 29.4 mmHg (5-10) H 12/26/23 14:09 Hematocrit 25.7 % (42-52) L 12/27/23 09:34 Hgb O2 Saturation 96.6 % (95-100) 12/26/23 14:09 Carboxyhemoglobin 2.6 %THgb (0.4-20.1) 12/26/23 14:09 Methemoglobin 0.4 % (0.4-1.5) 12/26/23 14:09 Total Hemoglobin 8.6 g/dL (14-18) L 12/26/23 14:09 Sodium 137.0 mmol/L (131-143) 12/26/23 14:09 Potassium 3.4 mmol/L (3.5-5.0) L 12/26/23 14:09 Glucose 173.0 mg/dL (70-115) H 12/26/23 14:09 Ionized Calcium 0.9 mmol/L (1.1-1.4) L 12/26/23 14:09 O2 Delivery Device Nc 12/27/23 09:34 O2 Liters/Min 6.0 % 12/27/23 09:34 FiO2 45.0 % 12/27/23 09:34 Holistic Nutritionist ID [place] 12/27/23 09:34 Sodium 137 mmol/L (136-145) 12/31/23 04:44 Potassium 5.5 mmol/L (3.5-5.1) H 12/31/23 04:44 Chloride 97 mmol/L (98-107) L 12/31/23 04:44 Carbon Dioxide 26 mmol/L (22-29) 12/31/23 04:44 Anion Gap 19.5 (5-19) H 12/31/23 04:44 BUN 57 mg/dL (6-20) H 12/31/23 04:44 Creatinine 5.6 mg/dL (0.7-1.2) H* D 12/31/23 04:44 GFR Calculation 10.7 mL/min (90-130) L 12/31/23 04:44 Glucose 105 mg/dL (65-115) 12/31/23 04:44 POC Glucose 121 mg/dL (70-110) H 12/30/23 21:08 Calculated Osmolality 300 mOsm/kg (285-295) H 12/31/23 04:44 Lactic Acid 2.8 mmol/L (0.5-2.2) H 12/26/23 15:42 Lactic Acid (Sepsis) 1.3 mmol/L (0.5-2.2) 12/26/23 20:15 Calcium 7.9 mg/dL (8.5-10.5) L 12/31/23 04:44 Phosphorus 6.9 mg/dL (2.5-4.5) H 12/31/23 04:44 Magnesium 1.7 mg/dL (1.7-2.3) 12/31/23 04:44 Iron 55 ug/dL (59-158) L 12/28/23 04:22 TIBC 159 mcg/dl 12/28/23 04:22 % Saturation 34.5 % (20-50) 12/28/23 04:22 Unsat Iron Binding 104 ug/dL (112-347) L 12/28/23 04:22 Ferritin 1453 ng/mL (30-400) H 12/28/23 04:22 Total Bilirubin 0.5 mg/dL (0.15-1.2) 12/31/23 04:44 AST 25 U/L (0-40) 12/31/23 04:44 ALT 11 U/L (0-41) 12/31/23 04:44 Alkaline Phosphatase 69 U/L (40-130) 12/31/23 04:44 Ammonia 43 umol/L (16-60) 12/26/23 20:15 Troponin T 5th Gen ng/L 1372 ng/L (0-15) H* 12/27/23 11:39 Troponin T Baseline 698 ng/L (0-15) H* 12/26/23 14:33 Troponin T 120 Minute 714.8 ng/L (0-15) H 12/26/23 15:42 Delta Troponin T 16.8 ABS# (0-10) H* 12/26/23 15:42 Troponin T Hi Sens 6Hr 987.2 ng/L (0-15) H 12/26/23 20:15 Troponin T Hi Sens 6Hr Delta 289.2 ng/L (0-12) H* 12/26/23 20:15 Total Protein 7.0 g/dL (6.6-8.7) 12/31/23 04:44 Albumin 3.4 g/dL (3.5-5.2) L 12/31/23 04:44 Globulin 3.6 g/dL (1.3-4.6) 12/31/23 04:44 Lipase 12 U/L (13-60) L 12/26/23 14:33 Vitamin B12 744 pg/mL (232-1245) 12/30/23 11:34 25-OH Vitamin D Total 7 ng/mL (30-100) L 12/28/23 04:22 Folate > 20.0 ng/mL (4.5-32.2) 12/31/23 04:44 Procalcitonin 1.69 ng/mL (0-0.5) H 12/27/23 03:15 TSH 3.72 uIU/mL (0.27-4.20) 12/28/23 04:22 PTH Intact 762.9 pg/mL (15-65) H 12/28/23 04:22 Calcium (PTH Intact) 6.7 mg/dL (8.5-10.5) L 12/28/23 04:22 Peritoneal Color Pale yellow (Pale Yellow) 12/28/23 16:10 Peritoneal Appearance Hazy (Clear) 12/28/23 16:10 Peritoneal pH 7.0 12/28/23 16:10 Peritoneal Spec [place] 1.005 12/28/23 16:10 Peritoneal WBC 170 /uL 12/28/23 16:10 Peritoneal RBC 4 10^3/uL 12/28/23 16:10 Periton Mononu # Auto 0.149 10^3/uL 12/28/23 16:10 Mononuclear WBCs % 87.700 % 12/28/23 16:10 Polynuclear WBCs % 12.300 % 12/28/23 16:10 Perit Polynuc WBCs # 0.021 10^3/uL 12/28/23 16:10 Peritoneal Tot Protein 3.5 g/dL 12/28/23 16:10 Peritoneal Albumin 1.7 g/dL 12/28/23 16:10 Peritoneal LDH 97.0 U/L 12/28/23 16:10 Peritoneal Glucose 150.0 mg/dL 12/28/23 16:10 C. difficile (PCR) Negative (Negative) 12/30/23 19:24 Hep Bs Antigen Non-reactive (Nonreactive) 12/27/23 17:23 Hep Bs Antibody 72.0 (11.5-1000) 12/27/23 17:23 Hepatitis C Antibody Non-reactive (Nonreactive) 12/27/23 17:23 Vitals Last Vital Signs Temp 98.4 F 12/31/23 04:00 Pulse 70 12/31/23 04:30 Resp 14 12/31/23 04:30 BP 93/61 12/31/23 04:30 Pulse Ox 100 12/31/23 04:30 O2 Del Method BiPAP 12/31/23 04:30 O2 Flow Rate 50 12/31/23 04:30 FiO2 50 12/31/23 03:43 Discharge Plan Discharge Patient Disposition: Xfer SNF Condition: Stable Prescriptions: New hydrocortisone 10 mg tablet 10 mg PO BID Qty: 60 4RF Continued (DME) Wheel Chair See Rx Instructions .Route .MEDSUPPLY Qty: 1 0RF Rx Instructions: As directed HOME (DME) Compression Stockings See Rx Instructions .Route .MEDSUPPLY Qty: 1 0RF Rx Instructions: As directed (DME) upper [place] boot modification See Rx Instructions .Route .MEDSUPPLY Qty: 1 0RF Rx Instructions: Straps are failing (DME) diabetic shoes with 3 heat molded insoles See Rx Instructions .Route .MEDSUPPLY Qty: 1 0RF Rx Instructions: As directed to HOME (DME) Prevalon boot See Rx Instructions .Route .MEDSUPPLY Qty: 1 0RF Rx Instructions: As directed ropinirole 0.25 mg tablet 0.25 mg PO BEDTIME oxycodone 5 mg Tablet 5 mg PO Q4H PRN (Reason: Pain) clopidogrel 75 mg Tablet 75 mg PO DAILY RenaPlex-D 800 mcg-12.5 mg -2,000 unit tablet 1 tab PO DAILY nitroglycerin 0.4 mg tablet, sublingual 0.4 mg buccal DAILY PRN (Reason: Chest Pain) Rx Instructions: NOT TO EXCEED 3 TABLETS midodrine 5 mg tablet 10 mg PO TID fludrocortisone 0.1 mg Tablet 0.2 mg PO DAILY Qty: 60 0RF ondansetron HCl 4 mg tablet 4 mg PO Q4H PRN (Reason: Nausea) polyethylene glycol 3350 [Miralax] 17 gram/dose Powder 17 g PO BID PRN (Reason: Constipation) albuterol sulfate 90 mcg/actuation Hfa Aerosol Inhaler 2 puff INHALATION Q6H PRN (Reason: Shortness Of Breath) B-complex with vitamin C Capsule 1 cap PO DAILY diphenhydramine HCl [Benadryl Allergy] 25 mg tablet 25 mg PO DAILY PRN (Reason: itching) gabapentin 300 mg capsule 300 mg PO Q8H PRN (Reason: NERVE PAIN) trazodone 50 mg tablet 50 mg PO BEDTIME Mehdi (with collagen) 7-7-1.5 gram Powder In Packet 1 packet PO BID Rx Instructions: mix 1 packet with 8-10 oz liquid Lokelma 10 gram powder in packet See Rx Instructions .ROUTE .COMPLEX Rx Instructions: GIVE 1 PACKET IN LIQUID BY MOUTH DAILY ON SUNDAY, SUNDAY, SUNDAY, AND SUNDAY. amiodarone [Pacerone] 200 mg Tablet 200 mg PO DAILY nitroglycerin 0.1 mg/hr Patch 24 Hour 1 patch TRANSDERMAL DAILY Rx Instructions: allow nitrate-free interval of approx. 10-12 hrs per 24-hour period miconazole nitrate 2 % Cream 1 applic TOPICAL BID levothyroxine 25 mcg Tablet 25 mcg PO DAILY pantoprazole 40 mg tablet,delayed release (DR/EC) 40 mg PO DAILY lorazepam 2 mg/mL Concentrate 0.25 - 0.5 mg PO Q6H PRN (Reason: COMFORT CARES) [id number] 0.5-1-0.5 % Dropperette 1 drp OPHTHALMIC (EYE) Q4H PRN (Reason: Dry Eyes) morphine concentrate 100 mg/5 mL (20 mg/mL) Solution 10 mg PO Q2H PRN (Reason: COMFORT CARE) Rx Instructions: PRN ORDER morphine concentrate 100 mg/5 mL (20 mg/mL) Solution 5 mg PO Q2H PRN (Reason: SHORTNESS OF BREATH OR PAIN) Discontinued Eliquis 5 mg Tablet 5 mg PO BID Discharge Orders: Discharge Order (Routine); Ordered 12/31/23 Ordered By: Chris Johansen Referrals: [facility] [place] [Outside] Sulma Wetzel MD [Primary Care Provider] - Patient Instructions: Dialysis Diet (DC), Altered Mental Status (ED), Hemodialysis (DC), Opioid Safety Discharge Attestations Time Spent in Discharge Care*: greater than 30 min Status at Discharge: Cognitive status at discharge: cognitively intact , Behavioral status at discharge: cooperative , Quality Metrics Clinical Quality Measures [ No reported AMI, CVA or VTE this stay] Coding Level of Care Code Acute Code for Chg Fwd Diagnoses End stage renal disease on dialysis N18.6; Z99.2
--- NOTE | 2023-12-31 07:42 | PM.PN ---
Subjective Subjective: feels better. wants to continue dialysis. no n/v/cp/cough /acosta. chronic edema and sob Medications: Reviewed: Yes Medication Review Details: Current Medications Acetaminophen (Acetaminophen 325 Mg Tablet) 650 mg PO Q6H PRN PRN Reason: MILD PAIN Albuterol/Ipratropium (Ipratropium-Albuterol 3 Ml Neb) 3 ml INHALATION Q6H.RESP [facility] Last Admin: 12/31/23 03:14 Dose: 3 ml Amiodarone HCl (Amiodarone 200 Mg Tablet) 200 mg PO DAILY [facility] Last Admin: 12/30/23 08:20 Dose: 200 mg Bisacodyl (Bisacodyl 5 Mg Tablet) 10 mg PO DAILY PRN; Protocol PRN Reason: Constipation (see protocol) Clopidogrel Bisulfate (Clopidogrel 75 Mg Tablet) 75 mg PO DAILY [facility] Last Admin: 12/30/23 08:20 Dose: 75 mg Ergocalciferol (Ergocalciferol (Vitamin D2) 50,000 Unit Capsule) 50,000 unit PO Q7D [facility] Last Admin: 12/28/23 10:17 Dose: 50,000 unit Fludrocortisone Acetate (Fludrocortisone 0.1 Mg Tablet) 0.2 mg PO DAILY [facility] Last Admin: 12/30/23 08:19 Dose: 0.2 mg Gabapentin (Gabapentin 300 Mg Capsule) 300 mg PO Q8H PRN PRN Reason: NERVE PAIN Heparin Sodium (Porcine) (Heparin 5,000 Unit/Ml Inj 1 Ml) 0 unit IV PRN PRN; Protocol PRN Reason: Heparin weight-base protocol Last Admin: 12/31/23 05:26 Dose: 6,000 unit Norepinephrine Bitartrate (Levophed) 4 mg in 250 mls @ 0 mls/hr IV .Q0M [facility]; Protocol Last Titration: 12/30/23 14:24 Dose: 0 mcg/min, 0 mls/hr Dextrose (D5w) 500 mls @ 0 mls/hr IV ONCE PRN; Protocol PRN Reason: Adult Acute Hypoglycemia Prot Dextrose (D10w) 125 mls @ 750 mls/hr IV PRN PRN; Protocol PRN Reason: Adult Acute Hypoglycemia Nursing Protocol Dextrose (D10w) 250 mls @ 1,000 mls/hr IV PRN PRN; Protocol PRN Reason: Adult Acute Hypoglycemia Nursing Protocol Albumin Human (Albumin) 12.5 gm in 50 mls @ 60 mls/hr IV PRN PRN PRN Reason: Hypotension and/or symptomatic Last Titration: 12/30/23 16:27 Dose: 0 mls/hr Heparin Sodium/Sodium Chloride (Heparin Drip) 25,000 unit in 500 mls @ 0 mls/hr IV .Q0M [place]; Protocol Last Titration: 12/31/23 05:30 Dose: 16.87 unit/kg/hr, 41 mls/hr Lactulose (Lactulose Oral Liq 20 Gm/30 Ml Udc) 10 gm PO DAILY PRN; Protocol PRN Reason: Constipation (see protocol) Levothyroxine Sodium (Levothyroxine 25 Mcg Tablet) 25 mcg PO DAILY [facility] Last Admin: 12/30/23 08:19 Dose: 25 mcg Magnesium Hydroxide (Magnesium Hydroxide 30 Ml Udc) 30 ml PO DAILY PRN; Protocol PRN Reason: Constipation (see protocol) Midodrine (Midodrine 5 Mg Tablet) 10 mg PO TID [facility] Last Admin: 12/30/23 21:08 Dose: 10 mg Multivitamins (D-Gvswixz-Svggvgr C Tablet) 1 each PO DAILY [facility] Last Admin: 12/30/23 08:20 Dose: 1 each Ondansetron HCl (Ondansetron 2 Mg/Ml Sdv 2 Ml) 4 mg IVP Q6H PRN PRN Reason: NAUSEA AND VOMITING Last Admin: 12/30/23 19:55 Dose: 4 mg Oxycodone HCl (Oxycodone 5 Mg Ir Tab/Cap) 5 mg PO Q4H PRN PRN Reason: Pain Last Admin: 12/31/23 00:58 Dose: 5 mg Pantoprazole Sodium (Pantoprazole 40 Mg Sdv) 40 mg IVP BID [facility] Last Admin: 12/30/23 22:27 Dose: 40 mg Ropinirole HCl (Ropinirole 0.25 Mg Tablet) 0.25 mg PO BEDTIME [facility] Last Admin: 12/30/23 21:08 Dose: 0.25 mg Sevelamer Carbonate (Sevelamer 800 Mg Tablet) 1,600 mg PO TID [facility] Last Admin: 12/30/23 21:08 Dose: 1,600 mg Vitals/I&O/Wt Last Vital Signs Temp 98.4 F 12/31/23 04:00 Pulse 75 12/31/23 07:00 Resp 15 12/31/23 07:00 BP 82/64 12/31/23 07:00 Pulse Ox 93 12/31/23 07:00 O2 Del Method BiPAP 12/31/23 04:30 O2 Flow Rate 50 12/31/23 04:30 FiO2 50 12/31/23 03:43 12/30/23 12/31/23 12/31/23 22:59 06:59 14:59 Intake Total 1140 / 1436.25 419.841 / 1856.091 Output Total 2981 / 2981 Balance -1841 / -1544.75 419.841 / -1124.909 Weight last 48 hrs Weight 121.653 kg Weight 121.5 kg Weight 122.742 kg Physical Exam Narrative: obese man on NC02, sitting up in bed- more comfortable than yesterday VS noted and BP now improved heent- nc/at, eomi neck no jvp lungs dull bases and b/l crackles heart irreg irreg +YAS abdomen soft, + bs, NT, + distended, + catheter ext +LUE AVF w/ thrill and bruit legs LLE BKA, + leg edema poor pulses neuro- a,a, o x 3 seen and examined by telehealth visit w/ RN Data 12/31/23 04:44 12/31/23 04:44 Micro: Microbiology 12/30/23 19:24 Occult Blood (FIT) - Final Stool Routine Collection 12/28/23 16:10 Gram Stain - Final Peritoneal Fluid Body Fluid Culture - Preliminary A&P Assessment and plan (1) End stage renal disease on dialysis: 53 yr old man 1. eSRD- HD TTS schedule. -s/p HD yesterday -discussed w/ medicine extra HD today 2.5 hrs, 2k, remove 1 l 2. Cardiogenic shock and rate controlled a fib 3. DM -control per medicine 4. anemia- high ferritin, continue epo. hgb 7.7- tx 1 unit prbc on dialysis today 5. thrombocytopenia- likely from cirrhosis. plts mildly improved 6. hypercapneic resp acidosis- BiPAP as needed 7.replace vit d and zemplar w/ dialysis. check phos 8. ascites- not tolerating fluid removal -major issue is that pt has severe CHF and difficult to remove fluids on dialysis. I am concerned that he wont be able to be dialyzed as outpt. consider LTAC seen and examined w/ rN- telehealth visit informed consent for telehealth obtained from pt discussed w/ pt and Dr Johansen Plan see above- ESRD, CHF, cirrhosis, hypercapneic resp acidosis, anemia Attestations Medical Necessity Statement*: esrd, anemia, hypotension Time Spent in Patient Care: 16 - 35 minutes Coding Level of Care Code Acute Code for Chg Fwd Diagnoses End stage renal disease on dialysis N18.6; Z99.2
[2023-12-31] MEDS: pantoprazole 40 mg SDV IVP (08:39)
[2023-12-31] MEDS: b-complex-vitamin c Tablet 1 EACH PO (08:39)
[2023-12-31] MEDS: sevelamer 800 mg Tablet 1600 MG PO ×2 (08:39→15:00)
[2023-12-31] MEDS: levothyroxine 25 mcg Tablet PO (08:39)
[2023-12-31] MEDS: amiodarone 200 mg Tablet PO (08:39)
[2023-12-31] MEDS: midodrine 5 mg TABLET 10 MG PO ×2 (08:39→15:00)
[2023-12-31] MEDS: fludrocortisone 0.1 mg Tablet 0.200000000000000011 MG PO (08:39)
[2023-12-31 11:01] LABS: Anion Gap 21.3 (5-19); Blood Urea Nitrogen 59 mg/dL (6-20); Calcium 8.2 mg/dL (8.5-10.5); Carbon Dioxide 24 mmol/L (22-29); Chloride 96 mmol/L (98-107); Creatinine Clr Calc Pharmacy 20.5462; Glomerular Filtration Rate 10.7 mL/min (90-130); Glucose 105 mg/dL (65-115); Osmolality Calculated 301 mOsm/kg (285-295); Potassium 4.3 mmol/L (3.5-5.1); Sodium 137 mmol/L (136-145)
[2023-12-31 11:03] LABS: Basophils % 0.6 %; Eosinophils # 0.2 10^3/uL (0.0-0.8); Eosinophils % 3.6 %; Lymphocytes # 0.6 10^3/uL (0.8-4.8); Lymphocytes % 12.2 %; Mean Corpuscular HGB Conc 28.6 g/dL (30-55); Mean Corpuscular Volume 108.5 fl (82-101); Mean Platelet Volume 10.8 fL (7.4-10.4); Monocytes # 0.3 10^3/uL (0.2-0.9); Monocytes % 6.2 %; Neutrophils # 3.86 10^3/uL (1.8-7.7); Nucleated Red Blood Cells % 0 %; Platelet Count 109 10^3/cmm (157-399); Red Blood Count 2.58 10^6/uL (3.85-5.65); Red Cell Distribution Width 22.6 % (12.1-15.1); White Blood Count 5.01 10^3/uL (3.29-11.43)
--- NOTE | 2023-12-31 13:23 | PC.NURSE ---
Cancelled RBC order per Dr. Johansen.
--- NOTE | 2023-12-31 13:47 | PC.NURSE ---
Report called to Rae at [facility]. Patient is AOX4. Dialysis planned for tomorrow 01-01-2024. Patient seems in good spirits about returning to [facility].
[2023-12-31 14:22] LABS: SARS Covid-2 Antigen negative (Negative)
--- NOTE | 2023-12-31 18:02 | PC.NURSE ---
Covid test negative, PICC line in place, Notified [facility] of this. Included in report that peritoneal fluid to be drained as previous order on file at [place]. Attempted to notify patients with no return call. Patient states he will let his know of the transfer. Patient AOX4, see documented vitals. All belongings with patient. Transported via EMS due to patient not tolerating transport via wheelchair. Patient reports pain and discomfort when sitting in upright position. Currently on 2L NC and bipap at night or during resting. Patient to receive dialysis on 01-01-24 on current schedule.
[2023-12-31 19:24] LABS: Glucose Point of Care 100 mg/dL (70-110)
[2023-12-31 23:13] LABS: Glucose Point of Care 121 mg/dL (70-110)
[2024-01-01 12:30] LABS: Vit D 1,25 (Oh)2, Total 11 pg/mL (18-72); Vit D2 1,25 (Oh)2 <8 pg/mL; Vit D3 1,25 (Oh)2 11 pg/mL
[2024-01-02 21:03] LABS: Peritoneal Fld Adenosine Deami 3.8 U/L (<7.6)
== END 2023-12-31 17:44 | disposition skilled nursing facility (03) | DRG 280 ==
LOC: ER 13:53 → ICU 16:01
PROVIDERS: Internal Medicine; Internal Medicine Nephrology; Admitting Provider Student in an Organized Health Care Education/Training Program; Emergency Provider Emergency Medicine; PCP Internal Medicine; Visit Provider Internal Medicine
DX: I21.4 Non-ST elevation (NSTEMI) myocardial infarction (principal); J96.01 Acute respiratory failure with hypoxia; R57.0 Cardiogenic shock; K76.7 Hepatorenal syndrome; N18.6 End stage renal disease; I13.2 Hypertensive heart and chronic kidney disease with heart failure and with stage 5 chronic kidney disease, or end stage renal disease; I50.32 Chronic diastolic (congestive) heart failure; K76.6 Portal hypertension; E27.40 Unspecified adrenocortical insufficiency; E87.20 Acidosis, unspecified; E11.649 Type 2 diabetes mellitus with hypoglycemia without coma; E11.22 Type 2 diabetes mellitus with diabetic chronic kidney disease; I95.9 Hypotension, unspecified; E66.9 Obesity, unspecified; K74.60 Unspecified cirrhosis of liver; J44.9 Chronic obstructive pulmonary disease, unspecified; Z66 Do not resuscitate; Z89.512 Acquired absence of left leg below knee; I25.10 Atherosclerotic heart disease of native coronary artery without angina pectoris; G47.33 Obstructive sleep apnea (adult) (pediatric); R19.7 Diarrhea, unspecified; Z95.5 Presence of coronary angioplasty implant and graft; K76.82 Hepatic encephalopathy; D63.1 Anemia in chronic kidney disease; I48.91 Unspecified atrial fibrillation; Z68.36 Body mass index [BMI] 36.0-36.9, adult; Z99.2 Dependence on renal dialysis; Z11.52 Encounter for screening for COVID-19; Z90.5 Acquired absence of kidney; Z85.528 Personal history of other malignant neoplasm of kidney
CPT/HCPCS: 36415; 36416; 36573; 36592; 36600; 71045; 80048; 80051; 80053; 80503; 82042; 82140; 82274; 82306; 82310; 82330; 82607; 82652; 82728; 82746; 82803; 82805; 82945; 82962; 83540; 83550; 83605; 83615; 83690; 83735; 83970; 83986; 84100; 84145; 84157; 84311; 84315; 84443; 84484; 85025; 85049; 85610; 85730; 86706; 86803; 86850; 86900; 86920; 87040; 87070; 87075; 87205; 87340; 87426; 87493; 89050; 90935; 93005; 93308; 94640; 94660; 94664; 96365; 96366; 96367; 96372; 96374; 96375; 96376; 99291; C1751; C9113; J1644; J1720; J2270; J2405; J7030; J7799; P9047; Q4081

== ENCOUNTER 2024-01-05 16:28 | Inpatient (IN) | payer MEDICARE, MEDICAID, SELFPAY ==
[2024-01-05] VITALS (20 sets, daily range): BP systolic 65–109; BP diastolic 34–75; PULSE 0–90; RESP 1–25; TEMP 36.8; O2SAT 57–100; BMI 39.7; BMI 37.7
--- NOTE | 2024-01-05 16:42 | XRR_ITS ---
PROCEDURE INFORMATION: Exam: XR Chest Exam date and time: 01/05/2024 4:57 PM Age: 53 years old Clinical indication: Cough and dyspnea; Patient HX: Hypotension TECHNIQUE: Imaging protocol: Radiologic exam of the chest. Views: 1 view. COMPARISON: CR XR chest 1V portable [id number] 12/26/2023 3:21 PM FINDINGS: Lungs: Suspect developing infiltrate in the right base. Poor inspiratory effort. Pleural spaces: Unremarkable. No pleural effusion. No pneumothorax. Heart/Mediastinum: Stable cardiomegaly. Bones/joints: Unremarkable. XR/XR chest 1V portable [id number] IMPRESSION: Suspect developing infiltrate in the right base. Poor inspiratory effort.
[2024-01-05 17:02] LABS: Basophils % 0.6 %; Eosinophils # 0.2 10^3/uL (0.0-0.8); Eosinophils % 4.8 %; Hematocrit 29.5 % (37-53); Lymphocytes # 0.5 10^3/uL (0.8-4.8); Lymphocytes % 14.8 %; Mean Corpuscular HGB Conc 29.2 g/dL (30-55); Mean Corpuscular Volume 106.5 fl (82-101); Mean Platelet Volume 10.4 fL (7.4-10.4); Monocytes # 0.5 10^3/uL (0.2-0.9); Monocytes % 14.5 %; Neutrophils # 2.13 10^3/uL (1.8-7.7); Neutrophils % 64.7 %; Nucleated Red Blood Cells % 0.9 %; Platelet Count 124 10^3/cmm (157-399); Red Blood Count 2.77 10^6/uL (3.85-5.65); Red Cell Distribution Width 21.8 % (12.1-15.1)
--- NOTE | 2024-01-05 17:02 | ED_ITS ---
HPI - General Adult 2 General: Chief complaint: General Medical Stated complaint: HYPOTENSION Time Seen by Provider: 01/05/24 16:40 Source: patient Mode of arrival: EMS History of Present Illness: 53-year-old male with longstanding histo ry of end-stage renal dialysis coronary artery disease heart failure and peripheral artery disease. He was just hospitalized recently and discharged home on December 3 to 5 days ago. He gets dialysis Tuesdays and Saturdays after discharge she had his Sunday and dialysis without a lot of difficulty. Today he became very hypotensive near the end of his dialysis run this has happened frequently and is noted in his discharge summary that he was probably going to require pressors after dialysis. There is discussion in his discharge summary of him being on palliative care . He was willing to do palliative care but he wanted to stay a full code this was confirmed after he arrived in the emergency room today he is not having any chest discomfort at this time. He has frequently had episodes of hypotension after dialysis. He denies any chest pain or shortness of breath he does feel very weak at this time. Associated symptoms: Reports dyspnea, malaise, nausea and short of breath; Deny chest pain, confusion, diaphoresis, rash or vomiting Review of Systems 2 Const: Reports: malaise; Denies: fever(s), chills or diaphoresis Card: Denies: chest pain Resp: Reports: dyspnea GI: Reports: nausea; Denies: abdominal pain or vomiting : Denies: dysuria, urinary frequency or urinary urgency Musc: Denies: neck pain or back pain Skin/Breast: Denies: rash Neuro: Denies: confusion PFSH ED 2 PFSH: Medical History End stage renal disease on dialysis Goals of care, counseling/discussion Hypoglycemia Altered mental status Hypotension Atherosclerotic heart disease of [place] coronary artery with other forms of angina pectoris Acute respiratory failure Acute non-ST elevation myocardial infarction (NSTEMI) Shock Metabolic acidosis Elevated troponin Atrial fibrillation Type 2 diabetes mellitus CHF (congestive heart failure), NYHA class III Poor prognosis Hepatorenal syndrome Sarcopenia Cirrhosis singletary Hypotension, chronic Anemia Acute hypoxic respiratory failure Anemia requiring transfusions Aortic stenosis Noncompliance End-stage renal disease on hemodialysis Anasarca Uremia Chronic osteomyelitis 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, limited to breakdown of skin Chronic osteomyelitis of right foot Foot osteomyelitis, right Osteomyelitis Cellulitis Necrosis of surgical wound Foot osteomyelitis, left Hypovolemic shock Anemia of chronic disease Ulcer of sacral region, stage 1 Gas gangrene Acquired equinovarus deformity of left foot Pre-ulcerative calluses Xerosis of skin 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 Cellulitis Diabetes BMI 50.0-59.9, adult Diabetic foot ulcers Fracture, thoracic vertebra T7-T8 Osteomyelitis Non-pressure chronic ulcer of other part of right foot with necrosis of muscle Chronic venous insufficiency Chronic dysfunction of both eustachian tubes Lung nodule Hypoglycemia unawareness associated with type 2 diabetes mellitus Chronic ulcer of left foot with fat layer exposed Non-healing ulcer of right foot with fat layer exposed Vitamin D deficiency First degree heart block COPD (chronic obstructive pulmonary disease) Hypertension Urinary retention History of renal cell carcinoma Morbid obesity with BMI of 40.0-44.9, adult Cardiac arrest Anemia Pneumonia due to 2019-nCoV (~07/2020) Renal cell carcinoma History bilateral renal cell carcinoma 2007 then recurrence on the contralateral side 2011. No recurrence for long-term follow-up with some suspicion on CT scan April 2020. Chronic respiratory failure with hypoxia and hypercapnia Obesity hypoventilation syndrome Metabolic alkalosis Accelerated hypertension Restrictive lung disease Obstructive sleep apnea non compliant with home bipap/cpap Fracture of fourth metatarsal bone of left foot Type 2 diabetes mellitus with diabetic polyneuropathy PVD (peripheral vascular disease) Fracture of fifth metatarsal bone of left foot Neuropathy Surgical History Status post below-knee amputation of left lower extremity History of left below knee amputation History of cataract surgery H/O wisdom tooth extraction Hx of lymph node excision H/O partial nephrectomy bilateral Family History Father , at age 65 Diabetes Cancer Metastatic prostate cancer to liver Mother , at age 72 Diabetes Grandfather Diabetes Cancer Other Anemia Hyperlipidemia Social History Smoking and tobacco/nicotine status: never used tobacco/nicotine Second hand smoke exposure: Yes Alcohol intake: current Alcohol intake frequency: holidays/special occasions only Substance/Drug Use: never Lives independently: Yes Household members: spouse Housing: House Marital status: service: No Current occupational status: retired Pets and animals: Yes Do you think of yourself as: Straight/Heterosexual Current gender identity: Male Physical Exam 2 Const: GENERAL APPEARANCE: cooperative and comfortable O RIENTATION/CONSCIOUSNESS: Yes awake, Yes oriented to person, Yes oriented to place and Yes oriented to time HENMT: COMMON NORMALS: normocephalic, atraumatic and hearing grossly normal bilaterally HEAD & SCALP: normocephalic and atraumatic Resp: AUSCULTATION: crackles Laterality: bilateral and diminished lung sounds Cardio: COMMON NORMALS: regular rate, regular rhythm and No murmurs present (Cardio) RATE: regular rate RHYTHM: regular rhythm GI: COMMON NORMALS: No hepatosplenomegaly present INSPECTION: Yes abdominal distension AUSCULTATION: Yes normoactive bowel sounds PALPATION: Yes Firmness to palpation present (GI), No Guarding due to palpation present (GI), Yes No hepatosplenomegaly present and Yes Ascites present Extremity: OTHER: Chronic venous stasis changes mild edema of the right lower leg, left lower extremity surgically absent, previous left below the knee amputation Neuro: SENSORIUM/ORIENTATION: Yes oriented to person, Yes oriented to place and Yes oriented to time Skin: COMMON NORMALS: no rashes or lesions noted GENERAL SKIN EXAM: no rashes or lesions noted Course 2 Vital Signs: Vital signs: Vital Signs Temperature 98.2 F 01/05/24 16:35 Pulse Rate 0 L 01/05/24 20:10 Respiratory Rate 1 L 01/05/24 20:10 Blood Pressure 95/63 01/05/24 19:50 Pulse Oximetry 57 L 01/05/24 19:50 Oxygen Delivery Me thod Nasal Cannula 01/05/24 19:26 Oxygen Flow Rate 3 01/05/24 18:21 MDM - General Adult Medical Decision Making Patient is hypotensive. He received the majority of his dialysis. I reviewed his discharge summary from last visit. They talked about putting on palliative care when I talk to the patient he is a full code. Concerned about infection as a possible cause of his symptoms. He has no leukocytosis we will get cultures prophylactically start him on antibiotics. Chest x-ray showed questionable developing right basilar infiltrate Levophed is ordered. Because of his underlying renal disease and heart failure in the past did not give fluid bolus. Concerned if we give him a large fluid bolus may exacerbate his heart failure if he is still having persistent hypotension may complicate her ability to dialyze the fluid off. At the moment he is awake and alert. Dr. Kauffman seen the patient early in the process we discussed different treatment options, including possibly giving albumin. He has frequently required pressure support shortly after dialysis and then will resolve over time. Large fluid bolus may further stresses system. Orders written. Nephrology consulted. Medical Records I reviewed the patient's medical records. Lab Data I reviewed the patient's lab results. 01/05/24 16:55 01/05/24 16:55 Radiology Impressions Chest X-Ray 01/05/24 16:42 IMPRESSION: Suspect developing infiltrate in the right base. Poor inspiratory effort. Laboratory Results WBC 3.30 10^3/uL (3.29-11.43) 01/05/24 16:55 RBC 2.77 10^6/uL (3.85-5.65) L 01/05/24 16:55 Hgb 8.60 g/dL (11.27-16.99) L 01/05/24 16:55 Hct 29.5 % (37-53) L 01/05/24 16:55 MCV 106.5 fl (82-101) H 01/05/24 16:55 MCH 31.0 pg (27-33) 01/05/24 16:55 MCHC 29.2 g/dL (30-55) L 01/05/24 16:55 RDW 21.8 % (12.1-15.1) H 01/05/24 16:55 Plt Count 124 10^3/cmm (157-399) L 01/05/24 16:55 MPV 10.4 fL (7.4-10.4) 01/05/24 16:55 Neut % (Auto) 64.7 % 01/05/24 16:55 Lymph % (Auto) 14.8 % 01/05/24 16:55 [place] % (Auto) 14.5 % 01/05/24 16:55 Eos % (Auto) 4.8 % 01/05/24 16:55 Baso % (Auto) 0.6 % 01/05/24 16:55 Neut # (Auto) 2.13 10^3/uL (1.8-7.7) 01/05/24 16:55 Lymph # (Auto) 0.5 10^3/uL (0.8-4.8) L 01/05/24 16:55 [place] # (Auto) 0.5 10^3/uL (0.2-0.9) 01/05/24 16:55 Eos # (Auto) 0.2 10^3/uL (0.0-0.8) 01/05/24 16:55 Baso # (Auto) 0.0 10^3/uL (0.0-0.1) 01/05/24 16:55 Nucleated RBC % (auto) 0.9 % 01/05/24 16:55 Nucleated RBCs # 0.0 /100WBC 01/05/24 16:55 Sodium 138 mmol/L (136-145) 01/05/24 16:55 Potassium 4.0 mmol/L (3.5-5.1) 01/05/24 16:55 Chloride 93 mmol/L (98-107) L 01/05/24 16:55 Carbon Dioxide 32 mmol/L (22-29) H 01/05/24 16:55 Anion Gap 17.0 (5-19) 01/05/24 16:55 BUN 51 mg/dL (6-20) H 01/05/24 16:55 Creatinine 4.5 mg/dL (0.7-1.2) H 01/05/24 16:55 GFR Calculation 13.8 mL/min (90-130) L 01/05/24 16:55 Glucose 81 mg/dL (65-115) 01/05/24 16:55 Calculated Osmolality 299 mOsm/kg (285-295) H 01/05/24 16:55 Calcium 7.8 mg/dL (8.5-10.5) L 01/05/24 16:55 Total Bilirubin 0.4 mg/dL (0.15-1.2) 01/05/24 16:55 AST 11 U/L (0-40) 01/05/24 16:55 ALT 10 U/L (0-41) 01/05/24 16:55 Alkaline Phosphatase 76 U/L (40-130) 01/05/24 16:55 Total Protein 7.4 g/dL (6.6-8.7) 01/05/24 16:55 Albumin 3.4 g/dL (3.5-5.2) L 01/05/24 16:55 Globulin 4.0 g/dL (1.3-4.6) 01/05/24 16:55 All radiology interpretation(s) finalized by discharge Discharge Plan Discharge Patient Disposition: Admitted As Inpatient Admit Provider: Nina Kauffman Clinical Impression: End stage renal disease on dialysis, Hypotension after procedure, Right lower lobe pneumonia, Coronary artery disease Condition: Stable Coding Level of Care Code ED Shop Lead for Patricia Reid
[2024-01-05 17:22] LABS: Alanine Aminotransferase 10 U/L (0-41); Albumin Level 3.4 g/dL (3.5-5.2); Alkaline Phosphatase 76 U/L (40-130); Aspartate Amino Transferase 11 U/L (0-40); Blood Urea Nitrogen 51 mg/dL (6-20); Calcium 7.8 mg/dL (8.5-10.5); Carbon Dioxide 32 mmol/L (22-29); Chloride 93 mmol/L (98-107); Glomerular Filtration Rate 13.8 mL/min (90-130); Glucose 81 mg/dL (65-115); Osmolality Calculated 299 mOsm/kg (285-295); Sodium 138 mmol/L (136-145); Total Bilirubin 0.4 mg/dL (0.15-1.2); Total Protein 7.4 g/dL (6.6-8.7)
[2024-01-05] MEDS: norepinephrine 4 MG/250 ML BAG 30 MG IV (18:09)
--- NOTE | 2024-01-05 18:11 | PM.HP ---
Providers/Chief Complaint Admitting Physician: Nina Kauffman MD Primary Care Provider: Sulma Wetzel MD Chief Complaint: HYPOTENSION History of Present Illness Akil Velasco is a 53 year old male Akil Velasco is a 53 year old male with past medical history of end-stage renal disease on hemodialysis, diabetic foot leading to amputation, CAD post PCI recently, liver cirrhosis with recurrent paracentesis, COPD, obstructive sleep apnea, type 2 diabetes mellitus, renal cell carcinoma post partial nephrectomy, recently transferred to [facility] for upper GI bleed for which he required multiple blood transfusions, recurrent admissions with the last 3 months with [facility] was readmitted 12/25 and discharged on 12/30 given to the ER today for hypotension. He was over dialysis was unable to complete his session today secondary to low blood pressure. He also states that he wants to have a paracentesis performed and fluid was not removed today via his catheter. He feels tense ascites. Denies any other complaints at this time. Would like to be a full code and would like everything to be done for him. Medications/Allergies Home Medications Medication Instructions Recorded Confirmed Last Taken Type Wheel Chair #1 ea 08/18/21 12/26/23 11/18/23 Rx ropinirole 0.25 mg tablet 0.25 mg PO BEDTIME Restless Leg(S) 08/22/21 12/26/23 11/22/23 History ondansetron HCl 4 mg tablet 4 mg PO Q4H PRN Nausea 04/11/22 12/26/23 11/22/23 History Compression Stockings #1 ea 04/12/22 12/26/23 11/18/23 Rx deering boot modification #1 ea 07/17/22 12/26/23 11/18/23 Rx oxycodone 5 mg tablet 5 mg PO Q4H PRN Pain 08/16/22 12/26/23 11/22/23 History B-complex with vitamin C 1 cap PO DAILY 10/16/22 12/26/23 12/11/23 History albuterol sulfate 90 mcg/actuation 2 puff inhalation Q6H PRN 10/16/22 12/26/23 11/01/23 History aerosol inhaler Shortness Of Breath diphenhydramine HCl 25 mg tablet 25 mg PO DAILY PRN itching 10/16/22 12/26/2311/08/24 History (Benadryl Allergy) polyethylene glycol 3350 17 17 g PO BID PRN Constipation 10/16/22 12/26/23 11/01/23 History gram/dose oral powder (Miralax) Prevalon boot #1 ea 11/21/22 12/26/23 11/18/23 Rx diabetic shoes with 3 heat molded #1 ea 12/15/22 12/26/23 11/18/23 Rx insoles gabapentin 300 mg capsule 300 mg PO Q8H PRN NERVE PAIN 01/02/23 12/26/23 11/22/23 History vit B,C-folic ac 800 mcg-zinc 12.5 1 tab PO DAILY 05/07/23 12/26/23 12/11/23 History mg-selen-D3 2,000 unit-vit E tablet (RenaPlex-D) clopidogrel 75 mg tablet 75 mg PO DAILY 07/02/23 12/26/23 12/11/23 History arginine 7 gram-glutam 7 1 packet PO BID 10/16/23 12/26/23 12/11/23 History gram-CaHMB 1.5 [id number]-[id number]-min oral pwd pkt (Mehdi (with collagen)) sodium zirconium cyclosilicate 10 See Rx Instructions .Route .COMPLEX 10/16/23 12/26/23 12/04/23 History gram oral powder packet (Lokelma) trazodone 50 mg tablet 50 mg PO BEDTIME 10/16/23 12/26/23 12/10/23 History nitroglycerin 0.4 mg sublingual 0.4 mg buccal DAILY PRN Chest Pain 11/05/23 12/26/23 11/22/23 History tablet amiodarone 200 mg tablet (Pacerone) 200 mg PO DAILY 11/19/23 12/26/23 12/11/23 History midodrine 5 mg tablet 10 mg PO TID 12/11/23 12/26/23 Unknown History fludrocortisone 0.1 mg tablet 0.2 mg (2 x 0.1 mg) PO DAILY #60 12/14/23 12/26/23 Unknown Rx tabs carboxymethyl 0.5 %-glycerin 1 1 drp ophthalmic (eye) Q4H PRN Dry 12/26/23 12/26/23 Unknown History %-polysorb 80 0.5 %-PF eye Eyes dropperette levothyroxine 25 mcg tablet 25 mcg PO DAILY 12/26/23 12/26/23 Unknown History lorazepam 2 mg/mL oral concentrate 0.25 - 0.5 mg PO Q6H PRN COMFORT 12/26/23 12/26/23 Unknown History CARES miconazole nitrate 2 % topical 1 applic topical BID 12/26/23 12/26/23 Unknown History cream morphine concentrate 100 mg/5 mL 5 mg PO Q2H PRN SHORTNESS OF 12/26/23 12/26/23 Unknown History (20 mg/mL) oral solution BREATH OR PAIN morphine concentrate 100 mg/5 mL 10 mg PO Q2H PRN COMFORT CARE 12/26/23 12/26/23 Unknown History (20 mg/mL) oral solution nitroglycerin 0.1 mg/hr 1 patch transdermal DAILY 12/26/23 12/26/23 Unknown History transdermal 24 hour patch pantoprazole 40 mg tablet,delayed 40 mg PO DAILY 12/26/23 12/26/23 Unknown History release hydrocortisone 10 mg tablet 10 mg PO BID #60 tabs 12/31/23 Unknown Rx Allergies Allergy/AdvReac Type Severity Reaction Status Date / Time vancomycin Allergy Unknown ADR-Itching Verified 12/07/23 08:36 ,Rash linezolid [From Zyvox] Allergy tendonitis Verified 12/07/23 08:36 ciprofloxacin [From Cipro] AdvReac Severe Tendonitis Verified 12/07/23 08:36 dextrose 5 % in water Allergy Unknown tendonitis Uncoded 12/07/23 08:36 PFSH Acute PFSH: Medical History End stage renal disease on dialysis Atrial fibrillation Type 2 diabetes mellitus CHF (congestive heart failure), NYHA class III Poor prognosis Hepatorenal syndrome Sarcopenia Cirrhosis singletary Hypotension, chronic Anemia Acute hypoxic respiratory failure Anemia requiring transfusions Aortic stenosis Noncompliance End-stage renal disease on hemodialysis Anasarca Uremia Chronic osteomyelitis 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, limited to breakdown of skin Chronic osteomyelitis of right foot Foot osteomyelitis, right Osteomyelitis Cellulitis Necrosis of surgical wound Foot osteomyelitis, left Hypovolemic shock Anemia of chronic disease Ulcer of sacral region, stage 1 Gas gangrene Acquired equinovarus deformity of left foot Pre-ulcerative calluses Xerosis of skin 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 Cellulitis Diabetes BMI 50.0-59.9, adult Diabetic foot ulcers Fracture, thoracic vertebra T7-T8 Osteomyelitis Non-pressure chronic ulcer of other part of right foot with necrosis of muscle Chronic venous insufficiency Chronic dysfunction of both eustachian tubes Lung nodule Hypoglycemia unawareness associated with type 2 diabetes mellitus Chronic ulcer of left foot with fat layer exposed Non-healing ulcer of right foot with fat layer exposed Vitamin D deficiency First degree heart block COPD (chronic obstructive pulmonary disease) Hypertension Urinary retention History of renal cell carcinoma Morbid obesity with BMI of 40.0-44.9, adult Cardiac arrest Anemia Pneumonia due to 2019-nCoV (~07/2020) Renal cell carcinoma History bilateral renal cell carcinoma 2007 then recurrence on the contralateral side 2011. No recurrence for long-term follow-up with some suspicion on CT scan April 2020. Chronic respiratory failure with hypoxia and hypercapnia Obesity hypoventilation syndrome Metabolic alkalosis Accelerated hypertension Restrictive lung disease Obstructive sleep apnea non compliant with home bipap/cpap Fracture of fourth metatarsal bone of left foot Type 2 diabetes mellitus with diabetic polyneuropathy PVD (peripheral vascular disease) Fracture of fifth metatarsal bone of left foot Neuropathy Surgical History Status post below-knee amputation of left lower extremity History of left below knee amputation History of cataract surgery H/O wisdom tooth extraction Hx of lymph node excision H/O partial nephrectomy bilateral Family History Father , at age 65 Diabetes Cancer Metastatic prostate cancer to liver Mother , at age 72 Diabetes Grandfather Diabetes Cancer Other Anemia Hyperlipidemia Social History Smoking and tobacco/nicotine status: never used tobacco/nicotine Second hand smoke exposure: Yes Alcohol intake: current Alcohol intake frequency: holidays/special occasions only Substance/Drug Use: never Lives independently: Yes Household members: spouse Housing: House Marital status: service: No Current occupational status: retired Pets and animals: Yes Do you think of yourself as: Straight/Heterosexual Current gender identity: Male Vitals/I&O/Wt Last Vital Signs Temp 98.2 F 01/05/24 16:35 Pulse 79 01/05/24 16:35 Resp 18 01/05/24 16:35 BP 84/61 01/05/24 16:35 Pulse Ox 94 01/05/24 16:35 O2 Del Method Nasal Cannula 01/05/24 16:35 O2 Flow Rate 2 01/05/24 16:35 Weight last 48 hrs Weight 132.903 kg Physical Exam Narrative: Sitting up in bed appearing comfortable at this time, on 2 L nasal cannula Blood pressure 84/61, pulse 79, straight 18 no acute respiratory distress Abdomen tense and taut secondary to ascites, peritoneal catheter in place. Normal S1-S2 Obese rounded abdomen Morbidly obese male Neuro: Moving all 4 extremities spontaneously Data 01/05/24 16:55 01/05/24 16:55 A&P Assessment and plan (1) Abdominal ascites: Qualifiers: Ascites type: other type Qualified Code(s): R18.8 - Other ascites (2) COPD (chronic obstructive pulmonary disease): (3) Congestive heart failure: Qualifiers: Heart failure chronicity: chronic Heart failure type: unspecified Qualified Code(s): I50.9 - Heart failure, unspecified (4) Diabetes mellitus type 2 in obese: (5) ESRD (end stage renal disease): (6) Hypotension: Qualifiers: Hypotension type: unspecified hypotension type Qualified Code(s): I95.9 - Hypotension, unspecified (7) Pneumonia: Plan #Hypotension #Pneumonia #History of adrenal insufficiency #End-stage renal disease on dialysis Sunday #Chronic respiratory failure #Congestive heart failure #Atrial fibrillation #Diabetes mellitus ? Please see previous notes for multiple other comorbidities ? Will give stress dose steroids Solu-Medrol 100 IV x TID x 3 doses ? Recommend to discharge on hydrocortisone 25 mg in AM and 15 mg in evening. ? Continue midodrine 10 3 times daily - continue fludracortisone 0.2 daily ? Start patient on Levophed ? Gentle IV hydration normal saline 75 cc/h ? Chest x-ray does show possible infiltrate right lower lobe. Continue on Zosyn. ? Check sputum Gram stain culture ? Low suspicion for SBP at this time ? Labs reviewed and consistent with patient's baseline ?consult nephrology. - once bp stable, may be able to drain peritoneal catheter - check blood cultures Full code DVT prophylaxis: SCDs. Hold off on pharmacological secondary to patient's history of bleed. Patient cannot tolerate anticoagulation. Thrombocytopenic today. Attestations Medical Necessity Statement*: observation pneumonia, ascites hypotension Coding Level of Care Code Acute Code for Chg Fwd Diagnoses Abdominal ascites R18.8 Ascites type: other type COPD (chronic obstructive pulmonary disease) J44.9 Congestive heart failure I50.9 Heart failure chronicity: chronic Heart failure type: unspecified Diabetes mellitus type 2 in obese E11.69; E66.9 ESRD (end stage renal disease) N18.6 Hypotension I95.9 Hypotension type: unspecified hypotension type Pneumonia J18.9
--- NOTE | 2024-01-05 18:30 | P.CONIM_ITS ---
Providers/Reason For Consult 2 Consulting Physician/Specialty*: domonique patel md / telenephrology Reason for Consult*: ESRD care Requesting Physician: DR Natalio Kauffman Attending Physician: Nina Kauffman MD Primary Care Provider: Sulma Wetzel MD History of Present Illness History of Present Illness Akil Velasco is a 53 year old male w/ HFpEF, right heart failure, , CAD, valvular heart disease, ESRD, liver cirrhosis, GI bleed, Type 2DM, COPD, renal cell carcinoma post partial nephrectomy, recurrent admissions with the last 3 months. He was last discharged [facility] on 12/31/23. He was sent back from dialysis today for hypotension. He is swollen, uncomfortable, and has ascites. he c/o constipation. Review of Systems 2 Narrative: swollen, SOB, hypotension, ESTRADA, SOB, cough, keg edema, left BKA. he is awake and alert Medications/Allergies Home Medications Medication Instructions Recorded Confirmed Last Taken Type Wheel Chair #1 ea 08/18/21 12/26/23 11/18/23 Rx ropinirole 0.25 mg tablet 0.25 mg PO BEDTIME Restless Leg(S) 08/22/21 12/26/23 11/22/23 History ondansetron HCl 4 mg tablet 4 mg PO Q4H PRN Nausea 04/11/22 12/26/23 11/22/23 History Compression Stockings #1 ea 04/12/22 12/26/23 11/18/23 Rx algaaciq boot modification #1 ea 07/17/22 12/26/23 11/18/23 Rx oxycodone 5 mg tablet 5 mg PO Q4H PRN Pain 08/16/22 12/26/23 11/22/23 History B-complex with vitamin C 1 cap PO DAILY 10/16/22 12/26/23 12/11/23 History albuterol sulfate 90 mcg/actuation 2 puff inhalation Q6H PRN 10/16/22 12/26/23 11/01/23 History aerosol inhaler Shortness Of Breath diphenhydramine HCl 25 mg tablet 25 mg PO DAILY PRN itching 10/16/22 12/26/23 11/09/23 History (Benadryl Allergy) polyethylene glycol 3350 17 17 g PO BID PRN Constipation 10/16/22 12/26/2324 History gram/dose oral powder (Miralax) Prevalon boot #1 ea 11/21/22 12/26/23 11/18/23 Rx diabetic shoes with 3 heat molded #1 ea 12/15/22 12/26/23 11/18/23 Rx insoles gabapentin 300 mg capsule 300 mg PO Q8H PRN NERVE PAIN 01/02/23 12/26/23 11/22/23 History vit B,C-folic ac 800 mcg-zinc 12.5 1 tab PO DAILY 05/07/23 12/26/23 12/11/23 History mg-selen-D3 2,000 unit-vit E tablet (RenaPlex-D) clopidogrel 75 mg tablet 75 mg PO DAILY 07/02/23 12/26/23 12/11/23 History arginine 7 gram-glutam 7 1 packet PO BID 10/16/23 12/26/23 12/11/23 History gram-CaHMB 1.5 gscc-joyon-tw-min oral pwd pkt (Mehdi (with collagen)) sodium zirconium cyclosilicate 10 See Rx Instructions .Route .COMPLEX 10/16/23 12/26/23 12/04/23 History gram oral powder packet (Lokelma) trazodone 50 mg tablet 50 mg PO BEDTIME 10/16/23 12/26/23 12/10/23 History nitroglycerin 0.4 mg sublingual 0.4 mg buccal DAILY PRN Chest Pain 11/05/23 12/26/23 11/22/23 History tablet amiodarone 200 mg tablet (Pacerone) 200 mg PO DAILY 11/19/23 12/26/23 12/11/23 History midodrine 5 mg tablet 10 mg PO TID 12/11/23 12/26/23 Unknown History fludrocortisone 0.1 mg tablet 0.2 mg (2 x 0.1 mg) PO DAILY #60 12/14/23 12/26/23 Unknown Rx tabs carboxymethyl 0.5 %-glycerin 1 1 drp ophthalmic (eye) Q4H PRN Dry 12/26/23 12/26/23 Unknown History %-polysorb 80 0.5 %-PF eye Eyes dropperette levothyroxine 25 mcg tablet 25 mcg PO DAILY 12/26/23 12/26/23 Unknown History lorazepam 2 mg/mL oral concentrate 0.25 - 0.5 mg PO Q6H PRN COMFORT 12/26/23 12/26/23 Unknown History CARES miconazole nitrate 2 % topical 1 applic topical BID 12/26/23 12/26/23 Unknown History cream morphine concentrate 100 mg/5 mL 5 mg PO Q2H PRN SHORTNESS OF 12/26/23 12/26/23 Unknown History (20 mg/mL) oral solution BREATH OR PAIN morphine concentrate 100 mg/5 mL 10 mg PO Q2H PRN COMFORT CARE 12/26/23 12/26/23 Unknown History (20 mg/mL) oral solution nitroglycerin 0.1 mg/hr 1 patch transdermal DAILY 12/26/23 12/26/23 Unknown History transdermal 24 hour patch pantoprazole 40 mg tablet,delayed 40 mg PO DAILY 12/26/23 12/26/23 Unknown History release hydrocortisone 10 mg tablet 10 mg PO BID #60 tabs 12/31/23 Unknown Rx Allergies Allergy/AdvReac Type Severity Reaction Status Date / Time vancomycin Allergy Unknown ADR-Itching Verified 12/07/23 08:36 ,Rash linezolid [From Zyvox] Allergy tendonitis Verified 12/07/23 08:36 ciprofloxacin [From Cipro] AdvReac Severe Tendonitis Verified 12/07/23 08:36 dextrose 5 % in water Allergy Unknown tendonitis Uncoded 12/07/23 08:36 PFSH Acute 2 PFSH: Medical History (Updated 01/05/24 @ 18:42 by Darrell Patel MD) End stage renal disease on dialysis Goals of care, counseling/discussion Hypoglycemia Altered mental status Hypotension Atherosclerotic heart disease of [place] coronary artery with other forms of angina pectoris Acute respiratory failure Acute non-ST elevation myocardial infarction (NSTEMI) Shock Metabolic acidosis Elevated troponin Atrial fibrillation Type 2 diabetes mellitus CHF (congestive heart failure), NYHA class III Poor prognosis Hepatorenal syndrome Sarcopenia Cirrhosis singletary Hypotension, chronic Anemia Acute hypoxic respiratory failure Anemia requiring transfusions Aortic stenosis Noncompliance End-stage renal disease on hemodialysis Anasarca Uremia Chronic osteomyelitis 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, limited to breakdown of skin Chronic osteomyelitis of right foot Foot osteomyelitis, right Osteomyelitis Cellulitis Necrosis of surgical wound Foot osteomyelitis, left Hypovolemic shock Anemia of chronic disease Ulcer of sacral region, stage 1 Gas gangrene Acquired equinovarus deformity of left foot Pre-ulcerative calluses Xerosis of skin 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 Cellulitis Diabetes BMI 50.0-59.9, adult Diabetic foot ulcers Fracture, thoracic vertebra T7-T8 Osteomyelitis Non-pressure chronic ulcer of other part of right foot with necrosis of muscle Chronic venous insufficiency Chronic dysfunction of both eustachian tubes Lung nodule Hypoglycemia unawareness associated with type 2 diabetes mellitus Chronic ulcer of left foot with fat layer exposed Non-healing ulcer of right foot with fat layer exposed Vitamin D deficiency First degree heart block COPD (chronic obstructive pulmonary disease) Hypertension Urinary retention History of renal cell carcinoma Morbid obesity with BMI of 40.0-44.9, adult Cardiac arrest Anemia Pneumonia due to 2019-nCoV (~07/2020) Renal cell carcinoma History bilateral renal cell carcinoma 2007 then recurrence on the contralateral side 2011. No recurrence for long-term follow-up with some suspicion on CT scan April 2020. Chronic respiratory failure with hypoxia and hypercapnia Obesity hypoventilation syndrome Metabolic alkalosis Accelerated hypertension Restrictive lung disease Obstructive sleep apnea non compliant with home bipap/cpap Fracture of fourth metatarsal bone of left foot Type 2 diabetes mellitus with diabetic polyneuropathy PVD (peripheral vascular disease) Fracture of fifth metatarsal bone of left foot Neuropathy Surgical History Status post below-knee amputation of left lower extremity History of left below knee amputation History of cataract surgery H/O wisdom tooth extraction Hx of lymph node excision H/O partial nephrectomy bilateral Family History Father , at age 65 Diabetes Cancer Metastatic prostate cancer to liver Mother , at age 72 Diabetes Grandfather Diabetes Cancer Other Anemia Hyperlipidemia Social History Smoking and tobacco/nicotine status: never used tobacco/nicotine Second hand smoke exposure: Yes Alcohol intake: current Alcohol intake frequency: holidays/special occasions only Substance/Drug Use: never Lives independently: Yes Household members: spouse Housing: House Marital status: service: No Current occupational status: retired Pets and animals: Yes Do you think of yourself as: Straight/Heterosexual Current gender identity: Male Vitals/I&O/Wt Last Vital Signs Temp 98.2 F 01/05/24 16:35 Pulse 77 01/05/24 18:21 Resp 18 01/05/24 18:21 BP 99/69 01/05/24 18:21 Pulse Ox 100 01/05/24 18:21 O2 Del Method Nasal Cannula 01/05/24 18:21 O2 Flow Rate 3 01/05/24 18:21 Weight last 48 hrs Weight 132.903 kg Physical Exam 2 Narrative: obese man on NC02, in bed w/ back of bed risen VS noted and BP improved now heent- nc/at, eomi neck no jvp lungs dull bases and b/l crackles heart irreg irreg +YAS abdomen soft, + bs, NT, + distended, + catheter ext +LUE AVF w/ thrill and bruit legs LLE BKA, + leg edema poor pulses neuro- a,a, o x 3 seen and examined by telehealth visit w/ RN Data 01/05/24 16:55 01/05/24 16:55 A&P Assessment and plan (1) End stage renal disease on dialysis: 53 yr old man 1. ESRD- HD TTS schedule. -s/p HD today 2. Hypotension- pt has had multiple recent echos- no significant pericardial effusions -pt getting steroids, midodrine 3. ascites and anasarca- when BP stable -drain his abdomen 4. a fib -well controlled 5. Q of PNA on cxr- abx per medicine 6. DM -control per medicine 7. anemia- high ferritin, continue epo. hgb 8.6 us improved from 8 on day of discharge 12/31/23 8. thrombocytopenia- likely from cardiac cirrhosis. plts improved to 124 9. hypercapneic resp acidosis- BiPAP as needed 10 .replace vit d and zemplar w/ dialysis. phos binder -major issue is that pt has severe hypotesnion, ascites, anasarca, and it is difficult to remove fluids on dialysis. Without being able to raise his BP- it will be difficult to remove fluids via paracentesis or dialysis seen and examined w/ rN- telehealth visit informed consent for telehealth obtained from pt discussed w/ pt, his , RN, and Dr Natalio Kauffman Plan see above Consult Attestations 2 Medical Necessity Statement: esrd, hypotension, ascites, SOB Time Spent in Patient Care: Greater than 35 minutes (>than 50% of time spent in counselling and/or direct pt care on unit) . Coding Level of Care Code Acute Code for Chg Fwd Diagnoses End stage renal disease on dialysis N18.6; Z99.2
[2024-01-05] MEDS: piperacillin-tazobactam 3.375 GM in sodium chloride 0.9% (plus) 50 ML IV (19:34)
[2024-01-05] MEDS: hydrocortisone 100 mg/2 mL SDV IVP (19:40)
--- NOTE | 2024-01-05 20:12 | PM.CCNAC ---
Critical Care Event Note Responded to Code Blue in ICU 12. ACLS protocol followed. Rhythm checks with persistent asystole. Airway secured by ED physician. Spouse bedside. Code called at 2007 after 20 minutes of CPR without any indication of ROSC. TOD 2007 on 01/05/2024. Critical Care Time Code activated: Yes Critical Care Time (min): 35 Coding Level of Care Code Acute Code for Chg Fwd Comment +cpt [id number]
--- NOTE | 2024-01-05 20:20 | PC.NURSE ---
Ariane Shell Patient arrived to unit at 1840, alert and oriented, all vital signs stable. , Haily, at bedside. At around 1945, while having conversation with patient, patient stopped speaking, clenched his teeth, and had no respirations. Respiratory therapy called to room. Assisted breathing began with RT, pulse lost soon after, compressions began immediately. Ariane Shell initiated at 194. See Ariane Shell paperwork.
--- NOTE | 2024-01-05 23:05 | PC.NURSE ---
[facility] Time of 2007. MTS contacted at [phone]; Josephine Pryor, patient support representative, gave referral number [id number]. Bekah, [facility] patient support representative, contacted unit at [phone] requesting additional information. Patient a possible tissue donor. Patient left for morgue at [phone] with pleating supervisor.
[2024-01-06 03:05] LABS: Glucose Point of Care 126 mg/dL (70-110)
--- NOTE | 2024-01-06 11:05 | PM.DDS ---
Discharge Providers DDS Date of Admission: 01/05/24 17:47 Date Summary Completed: 01/06/24 Attending Provider at Admission: Nina Kauffman MD Time of : 20:08 Attending Provider at Discharge: Nina Kauffman MD Primary Care Provider: Sulma Wetzel MD DS Diagnoses Hospital Diagnoses (1) End stage renal disease on dialysis: Reason for Visit Reason for Visit HYPOTENSION Summary Date and Time of Date of : 01/05/24 Time of : 20:08 Summary Summary: patient was admitted last night and shortly after admission. see critical care progress note. I was not present when patient . Night hospitalist responded to code blue. Additional Data Advance directives?: No Discharge Plan Discharge Patient Disposition: Condition: Stable Probable Cause of Probable cause of : Cardiac arrest DS Attestations Time Spent in /Discharge Care*: less than 30 min Quality - AMI: AMI present?: No Quality - Stroke: CVA present?: No Quality - VTE: VTE present?: No Coding Level of Care Code 61264 Total time (in minutes) for Discharge: 5 Diagnoses End stage renal disease on dialysis N18.6; Z99.2
--- NOTE | 2024-02-01 11:00 | ED_ITS ---
HPI - General Adult 2 General: Chief complaint: General Medical Stated complaint: HYPOTENSION Time Seen by Provider: 01/05/24 16:40 Source: patient Mode of arrival: EMS History of Present Illness: . PFSH ED 2 PFSH: Medical History End stage renal disease on dialysis Goals of care, counseling/discussion Hypoglycemia Altered mental status Hypotension Atherosclerotic heart disease of [place] coronary artery with other forms of angina pectoris Acute respiratory failure Acute non-ST elevation myocardial infarction (NSTEMI) Shock Metabolic acidosis Elevated troponin Atrial fibrillation Type 2 diabetes mellitus CHF (congestive heart failure), NYHA class III Poor prognosis Hepatorenal syndrome Sarcopenia Cirrhosis singletary Hypotension, chronic Anemia Acute hypoxic respiratory failure Anemia requiring transfusions Aortic stenosis Noncompliance End-stage renal disease on hemodialysis Anasarca Uremia Chronic osteomyelitis 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, limited to breakdown of skin Chronic osteomyelitis of right foot Foot osteomyelitis, right Osteomyelitis Cellulitis Necrosis of surgical wound Foot osteomyelitis, left Hypovolemic shock Anemia of chronic disease Ulcer of sacral region, stage 1 Gas gangrene Acquired equinovarus deformity of left foot Pre-ulcerative calluses Xerosis of skin 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 Cellulitis Diabetes BMI 50.0-59.9, adult Diabetic foot ulcers Fracture, thoracic vertebra T7-T8 Osteomyelitis Non-pressure chronic ulcer of other part of right foot with necrosis of muscle Chronic venous insufficiency Chronic dysfunction of both eustachian tubes Lung nodule Hypoglycemia unawareness associated with type 2 diabetes mellitus Chronic ulcer of left foot with fat layer exposed Non-healing ulcer of right foot with fat layer exposed Vitamin D deficiency First degree heart block COPD (chronic obstructive pulmonary disease) Hypertension Urinary retention History of renal cell carcinoma Morbid obesity with BMI of 40.0-44.9, adult Cardiac arrest Anemia Pneumonia due to 2019-nCoV (~07/2020) Renal cell carcinoma History bilateral renal cell carcinoma 2007 then recurrence on the contralateral side 2011. No recurrence for long-term follow-up with some suspicion on CT scan April 2020. Chronic respiratory failure with hypoxia and hypercapnia Obesity hypoventilation syndrome Metabolic alkalosis Accelerated hypertension Restrictive lung disease Obstructive sleep apnea non compliant with home bipap/cpap Fracture of fourth metatarsal bone of left foot Type 2 diabetes mellitus with diabetic polyneuropathy PVD (peripheral vascular disease) Fracture of fifth metatarsal bone of left foot Neuropathy Surgical History Status post below-knee amputation of left lower extremity History of left below knee amputation History of cataract surgery H/O wisdom tooth extraction Hx of lymph node excision H/O partial nephrectomy bilateral Family History Father , at age 65 Diabetes Cancer Metastatic prostate cancer to liver Mother , at age 72 Diabetes Grandfather Diabetes Cancer Other Anemia Hyperlipidemia Social History Smoking and tobacco/nicotine status: never used tobacco/nicotine Second hand smoke exposure: Yes Alcohol intake: current Alcohol intake frequency: holidays/special occasions only Substance/Drug Use: never Lives independently: Yes Household members: spouse Housing: House Marital status: service: No Current occupational status: retired Pets and animals: Yes Do you think of yourself as: Straight/Heterosexual Current gender identity: Male Procedures Intubation Time out performed: No sedative: none Laryngoscope: Annamarie ET Tube Size: 8 ET Tube Uncuffed: No Tube Secured Depth (cm): 22 Tube Secured Location: lips Tube Placement Confirmation: visualized tube passing through cords, equal breath sounds bilaterally, no breath sounds over epigastrium and confirmation by capnometry Patient Tolerated Procedure: well Intubation Complications: none Course 2 Vital Signs: Vital signs: Vital Signs Temperature 98.2 F 01/05/24 16:35 Pulse Rate 0 L 01/05/24 20:10 Respiratory Rate 1 L 01/05/24 20:10 Blood Pressure 95/63 01/05/24 19:50 Pulse Oximetry 57 L 01/05/24 19:50 Oxygen Delivery Me thod Nasal Cannula 01/05/24 19:26 Oxygen Flow Rate 3 01/05/24 18:21 [facility] - General Adult Medical Decision Making Responded to a CODE BLUE and intubated patient with no complications on the innervation Lab Data 01/05/24 16:55 01/05/24 16:55 Radiology Impressions Chest X-Ray 01/05/24 16:42 IMPRESSION: Suspect developing infiltrate in the right base. Poor inspiratory effort. Laboratory Results WBC 3.30 10^3/uL (3.29-11.43) 01/05/24 16:55 RBC 2.77 10^6/uL (3.85-5.65) L 01/05/24 16:55 Hgb 8.60 g/dL (11.27-16.99) L 01/05/24 16:55 Hct 29.5 % (37-53) L 01/05/24 16:55 MCV 106.5 fl (82-101) H 01/05/24 16:55 MCH 31.0 pg (27-33) 01/05/24 16:55 MCHC 29.2 g/dL (30-55) L 01/05/24 16:55 RDW 21.8 % (12.1-15.1) H 01/05/24 16:55 Plt Count 124 10^3/cmm (157-399) L 01/05/24 16:55 MPV 10.4 fL (7.4-10.4) 01/05/24 16:55 Neut % (Auto) 64.7 % 01/05/24 16:55 Lymph % (Auto) 14.8 % 01/05/24 16:55 [place] % (Auto) 14.5 % 01/05/24 16:55 Eos % (Auto) 4.8 % 01/05/24 16:55 Baso % (Auto) 0.6 % 01/05/24 16:55 Neut # (Auto) 2.13 10^3/uL (1.8-7.7) 01/05/24 16:55 Lymph # (Auto) 0.5 10^3/uL (0.8-4.8) L 01/05/24 16:55 [place] # (Auto) 0.5 10^3/uL (0.2-0.9) 01/05/24 16:55 Eos # (Auto) 0.2 10^3/uL (0.0-0.8) 01/05/24 16:55 Baso # (Auto) 0.0 10^3/uL (0.0-0.1) 01/05/24 16:55 Nucleated RBC % (auto) 0.9 % 01/05/24 16:55 Nucleated RBCs # 0.0 /100WBC 01/05/24 16:55 Sodium 138 mmol/L (136-145) 01/05/24 16:55 Potassium 4.0 mmol/L (3.5-5.1) 01/05/24 16:55 Chloride 93 mmol/L (98-107) L 01/05/24 16:55 Carbon Dioxide 32 mmol/L (22-29) H 01/05/24 16:55 Anion Gap 17.0 (5-19) 01/05/24 16:55 BUN 51 mg/dL (6-20) H 01/05/24 16:55 Creatinine 4.5 mg/dL (0.7-1.2) H 01/05/24 16:55 GFR Calculation 13.8 mL/min (90-130) L 01/05/24 16:55 Glucose 81 mg/dL (65-115) 01/05/24 16:55 Calculated Osmolality 299 mOsm/kg (285-295) H 01/05/24 16:55 Calcium 7.8 mg/dL (8.5-10.5) L 01/05/24 16:55 Total Bilirubin 0.4 mg/dL (0.15-1.2) 01/05/24 16:55 AST 11 U/L (0-40) 01/05/24 16:55 ALT 10 U/L (0-41) 01/05/24 16:55 Alkaline Phosphatase 76 U/L (40-130) 01/05/24 16:55 Total Protein 7.4 g/dL (6.6-8.7) 01/05/24 16:55 Albumin 3.4 g/dL (3.5-5.2) L 01/05/24 16:55 Globulin 4.0 g/dL (1.3-4.6) 01/05/24 16:55 No radiology studies performed this visit Discharge Plan Discharge Patient Disposition: Admitted As Inpatient Admit Provider: Nina Kauffman Clinical Impression: End stage renal disease on dialysis, Hypotension after procedure, Right lower lobe pneumonia, Coronary artery disease Condition: Stable Coding Level of Care Code ED Social Media Marketing Specialist for Patricia Reid
== END 2024-01-05 22:50 | disposition expired | DRG 314 ==
LOC: ER 17:03 → ICU 18:10
PROVIDERS: Admitting Provider Internal Medicine; Emergency Provider Family Medicine; PCP Internal Medicine; Visit Provider Internal Medicine
DX: I95.9 Hypotension, unspecified (principal); J18.9 Pneumonia, unspecified organism; N18.6 End stage renal disease; I13.2 Hypertensive heart and chronic kidney disease with heart failure and with stage 5 chronic kidney disease, or end stage renal disease; I50.32 Chronic diastolic (congestive) heart failure; I48.20 Chronic atrial fibrillation, unspecified; R18.8 Other ascites; J44.0 Chronic obstructive pulmonary disease with (acute) lower respiratory infection; Z99.2 Dependence on renal dialysis; I25.10 Atherosclerotic heart disease of native coronary artery without angina pectoris; Z95.5 Presence of coronary angioplasty implant and graft; K59.00 Constipation, unspecified; E11.22 Type 2 diabetes mellitus with diabetic chronic kidney disease; J44.9 Chronic obstructive pulmonary disease, unspecified; K74.60 Unspecified cirrhosis of liver; D63.1 Anemia in chronic kidney disease; D69.6 Thrombocytopenia, unspecified; I73.9 Peripheral vascular disease, unspecified; Z89.512 Acquired absence of left leg below knee; I46.9 Cardiac arrest, cause unspecified
CPT/HCPCS: 36415; 36416; 71045; 80053; 82962; 85025; 87040; 94664; 96365; 96367; 96374; 96376; 99291; J0171; J1720; J2543